=== PATIENT | female | born 1930 | race Caucasian/White ===

== ENCOUNTER 2019-07-24 18:51 | Observation (INO) | payer MEDICARE, OTHER ==
[~2019-07-24] VITALS: Ht 167.6 cm; Wt 54.0 kg
--- OUTSIDE RECORDS SUMMARY | ~2019-07-24 | XMS | Encounter Summary ---
Demographics + + + | Address | [address] | | | [place] [address] | + + + | Home Phone | | + + + | Preferred Language | Unknown | + + + | Marital Status | | + + + | Synagogue Affiliation | Unknown | + + + | Race | Unknown | + + + | Ethnic Group | Unknown | + + + Author + + + | Author | [facility] | | | and [place] | + + + | Organization | [facility] | | | and [place] | + + + | Address | Unknown | + + + | Phone | Unavailable | + + + Support + + + + + | Name | Relationship | Address | Phone | + + + + + | Sigrid Lennon | ECON | [address] | | | | | [place] [address] | | + + + + + | Valentín Saleh | ECON | [address] | | | | | [place] [address] | | + + + + + | Roberto Carlos Lennon | LEVI | Unknown | | + + + + + Care Team Providers + +------+ + | Care Ship Construction Teacher Name | Role | Phone | + +------+ + | No, Physician | PCP | Unavailable | + +------+ + Encounter Details +--------+ + + + + | Date | Type | Department | Care Team | Description | +--------+ + + + + | 09/03/ | Lab | [facility] | Francois Pascal, | Other intermediate | | 2017 | Requisition | [facility] CTR [facility] | [address] | (current) drug | | | | [address] [place] | [address] [place], | therapy | | | | [place], [place] | [place] [address] | | | | | [address] | [phone] | | | | | [phone] | | | +--------+ + + + + Social History + +-------+ +--------+------+ | Tobacco Use | Types | Packs/Day | Years | Date | | | | | Used | | + +-------+ +--------+------+ | Never Smoker | | | | | + +-------+ +--------+------+ + +---+---+---+ | Smokeless Tobacco: | | | | | Never Used | | | | + +---+---+---+ + + +---------+ + | Alcohol Use | Drinks/Week | oz/Week | Comments | + + +---------+ + | No | 0 Standard drinks | 0.0 | | | | or equivalent | | | + + +---------+ + + + + | Sex Assigned at | Date Recorded | | | | + + + | Not on file | | + + + + + + + | Job Start Date | Occupation | Industry | + + + + | Not on file | Not on file | Not on file | + + + + + + + + | Travel History | Travel Start | Travel End | + + + + + + | No recent travel history available. | + + documented as of this encounter Functional Status + + + + | Functional Status | Response | Date of Assessment | + + + + | Are you deaf or do you have serious | No | 07/13/2016 | | difficulty hearing? | | | + + + + | Are you blind or do you have serious | No | 07/13/2016 | | difficulty seeing, even when wearing | | | | glasses? | | | + + + + | Do you have serious difficulty walking or | Yes | 07/13/2016 | | climbing stairs? (5 years old or older) | | | + + + + | Do you have difficulty dressing or bathing? | Yes | 07/13/2016 | | (5 years old or older) | | | + + + + | Because of a physical, mental, or emotional | No | 07/13/2016 | | condition, do you have difficulty doing | | | | errands alone such as visiting a doctor's | | | | office or shopping? [15 years old or | | | | older)] | | | + + + + + + + + | Cognitive Status | Response | Date of Assessment | + + + + | Because of a physical, mental, or emotional | No | 07/13/2016 | | condition, do you have serious difficulty | | | | concentrating, remembering, or making | | | | decisions? (5 years old or older) | | | + + + + documented as of this encounter Plan of Treatment Not on filedocumented as of this encounter Procedures + +--------+ + + + | Procedure Name | Priori | Date/Time | Associated Diagnosis | Comments | | | ty | | | | + +--------+ + + + | COMPREHENSIVE | Routin | 09/03/2016 | Other intermediate | Results for this | | METABOLIC PANEL | e | 6:58 AM | (current) drug | procedure are in the | | | | PDT | therapy | results section. | + +--------+ + + + documented in this encounter Results COMPREHENSIVE METABOLIC PANEL (09/03/2016 6:58 AM PDT) + + + + + + | Component | Value | Ref Range | Performed | Pathologist | | | | | At | Signature | + + + + + + | Na | 136 | 136 - 149 | [facility] | | | | | mmol/L | [facility] | | | | | | [facility] | | | | | | [facility] - | | | | | | LABORATORY | | + + + + + + | K | 4.1 | 3.5 - 5.1 | [facility] | | | | | mmol/L | [facility] | | | | | | [facility] | | | | | | C[facility] - | | | | | | LABORATORY | | + + + + + + | Cl | 103 | 98 - 109 mmol/L | [facility] | | | | | | [facility] | | | | | | [facility] | | | | | | C[facility] - | | | | | | LABORATORY | | + + + + + + | CO2 | 27 | 24 - 31 mmol/L | [facility] | | | | | | [facility] | | | | | | [facility] | | | | | | C[facility] - | | | | | | LABORATORY | | + + + + + + | Anion Gap | 6 | 3 - 16 mmol/L | [facility] | | | | | | [facility] | | | | | | [facility] | | | | | | C[facility] - | | | | | | LABORATORY | | + + + + + + | Glucose | 155 (H) | 70 - 109 mg/dL | [facility] | | | | | | [facility] | | | | | | [facility] | | | | | | CENTER - | | | | | | LABORATORY | | + + + + + + | BUN | 16 | 7 - 18 mg/dL | [facility] | | | | | | [facility] | | | | | | [facility] | | | | | | C[facility] - | | | | | | LABORATORY | | + + + + + + | Creatinine | 0.84 | 0.60 - 1.30 | [facility] | | | | | mg/dL | [facility] | | | | | | [facility]ICAL | | | | | | CENTER - | | | | | | LABORATORY | | + + + + + + | eGFR if not | >60Comment: GLOMERULAR | >=60 | [facility] | | | | FILTRATION | mL/min/1.73m2 | [facility] | | | MALAGASY | RATE,ESTIMATED | | MEDICAL | | | | mL/min/1.76c4Bkyg than | | CENTER - | | | | 60 Chronic kidney | | LABORATORY | | | | disease,if found over a | | | | | | 3-month period.Less than | | | | | | 15 Kidney failureFor | | | | | | | | | | | | Americans,multiply the | | | | | | calculated GFR by 1.21. | | | | | | | | | | + + + + + + | Calcium | 8.8 | 8.3 - 10.5 | [facility] | | | | | mg/dL | [facility] | | | | | | MEDICAL | | | | | | CENTER - | | | | | | LABORATORY | | + + + + + + | Albumin | 3.1 (L) | 3.2 - 5.0 g/dL | [facility] | | | | | | [facility] | | | | | | MEDICAL | | | | | | CENTER - | | | | | | LABORATORY | | + + + + + + | Bilirubin | 0.5 | 0.1 - 1.5 mg/dL | [facility] | | | Total | | | [facility] | | | | | | [facility]ICAL | | | | | | CENTER - | | | | | | LABORATORY | | + + + + + + | Total | 5.8 (L) | 6.0 - 7.8 g/dL | [facility] | | | Protein | | | [facility] | | | | | | MEDICAL | | | | | | CENTER - | | | | | | LABORATORY | | + + + + + + | AST | 17 | 10 - 42 U/L | [facility] | | | | | | [facility] | | | | | | [facility]ICAL | | | | | | CENTER - | | | | | | LABORATORY | | + + + + + + | ALT | 13 | 6 - 45 U/L | [facility] | | | | | | [facility] | | | | | | MEDICAL | | | | | | CENTER - | | | | | | LABORATORY | | + + + + + + | Alkaline | 71 | 40 - 110 U/L | [facility] | | | Phosphatase | | | [facility] | | | | | | MEDICAL | | | | | | CENTER - | | | | | | LABORATORY | | + + + + + + | Globulin | 2.7 | 2.1 - 3.8 g/dL | [facility] | | | | | | [facility] | | | | | | [facility] | | | | | | CENTER - | | | | | | LABORATORY | | + + + + + + | Albumin/Kalani | 1.1 | 0.8 - 2.0 | [facility] | | | bulin Ratio | | | [facility] | | | | | | MEDICAL | | | | | | CENTER - | | | | | | LABORATORY | | + + + + + + | BUN/Creatin | 19.0 | | [facility] | | | ine Ratio | | | [facility] | | | | | | MEDICAL | | | | | | CENTER - | | | | | | LABORATORY | | + + + + + + + + | Specimen | + + | Blood | + + + + + + + | Performing | Address | City/State/Zipcode | Phone Number | | Organization | | | | + + + + + | [facility] | 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
--- OUTSIDE RECORDS SUMMARY | ~2019-07-24 | XMS | Encounter Summary ---
Demographics + + + | Address | [address] | | | [place] [address] | + + + | Home Phone | | + + + | Preferred Language | Unknown | + + + | Marital Status | | + + + | Mormonism Affiliation | Unknown | + + + | Race | Unknown | + + + | Ethnic Group | Unknown | + + + Author + + + | Author | [facility] | | | and [place] | + + + | Organization | [facility] | | | and [...] | | | | | [place] [address] | | + + + + + | Valentín Saleh | ECON | [address] | | | | | [place] [address] | | + + + + + | Roberto Carlos Lennon | LEVI | Unknown | | + + + + + Care Team Providers + +------+ + | Care Staff Physical Therapist Name | Role | Phone | + +------+ + | Francois Pascal MD | PCP | | + +------+ + Reason for Visit + + + | Reason | Comments | + + + | Medication Refill | | + + + Encounter Details +--------+--------+ + + + | Date | Type | Department | Care Team | Description | +--------+--------+ + + + | 11/13/ | Refill | [facility] | Francois Pascal, | Medication Refill | | 2012 | | MEDICINE [place] | [address] | | | | | [address] | [address] [place], | | | | | [place] | [place] [address] | | | | | [address] | [phone] | | | | | [phone] | | | +--------+--------+ + + + Social History + +-------+ [...] Not on filedocumented as of this encounter Visit Diagnoses + + | Diagnosis | + + | ARTHRITIS, CHRONIC - Primary Arthropathy, unspecified, site unspecified | + + documented in this encounter"
--- OUTSIDE RECORDS SUMMARY | ~2019-07-24 | XMS | Encounter Summary ---
Demographics + + + | Address | [address] | | | [place] [address] | + + + | Home Phone | | + + + | Preferred Language | Unknown | + + + | Marital Status | | + + + | Hinduism Affiliation | Unknown | + + + | Race | Unknown | + + + | Ethnic Group | Unknown | + + + Author + + + | Author | [facility] | | | and [place] | + + + | Organization | [facility] | | | and [...] | | | | | [place] [address] | | + + + + + | Valentín Saleh | ECON | [address] | | | | | [place] [address] | | + + + + + | Roberto Carlos Lennon | LEVI | Unknown | | + + + + + Care Team Providers + +------+ + | Care Client Services Analyst Name | Role | Phone | + +------+ + | No, Physician | PCP | Unavailable | + +------+ + Encounter Details +--------+ + + + + | Date | Type | Department | Care Team | Description | +--------+ + + + + | 07/31/ | Lab | [facility] | Francois Pascal, | Encounter for | | 2019 | Requisition | MED CTR [facility] | [address] | screening for other | | | | [address] [place] | [address], | viral diseases | | | | [place], [place] | [place] [address] | | | | | [address] | [phone] | | | | | [phone] | | | +--------+ + + + [...] | + +--------+ + + + | HIV AG/AB, 4TH GEN, | Routin | 07/30/2018 | Encounter for | Results for this | | REFLEX | e | 3:45 PM | screening for other | procedure are in the | | | | PDT | viral diseases | results section. | + +--------+ + + + | HEPATITIS PANEL | Routin | 07/30/2018 | Encounter for | Results for this | | | e | 3:45 PM | screening for other | procedure are in the | | | | PDT | viral diseases | results section. | + +--------+ + + + | HIV TYPE 1 AND 2 AB | Routin | 07/30/2018 | Encounter for | Results for this | | SCREEN, RAPID | e | 3:45 PM | screening for other | procedure are in the | | | | PDT | viral diseases | results section. | + +--------+ + + + documented in this encounter Results HIV AG/AB, 4th Gen Reflex (07/30/2018 3:45 PM PDT) + + + + + + | Component | Value | Ref Range | Performed | Pathologist | | | | | At | Signature | + + + + + + | HIV 1/2 Ab | Non Reactive | Non Reactive | [facility] | | | and P24 Ag | | | LAB [facility] | | | | | | - [facility] | | + + + + + + + + | Specimen | + + | Blood | + + + + + | Narrative | Performed At | + + + | Performed at: [address] [facility] [address], | REFERENCE LAB | | [place], [place] [id number] Supervisor Floor Assembly: Brian Lacy MD, Phone: | [facility] | | [phone] | | + + + + + + + + | Performing | Address | City/State/Zipcode | Phone Number | | Organization | | | | + + + + + | REFERENCE LAB | [address] | [place], [place] | [phone] | | [facility] | [place] | [address] | | + + + + + HIV Type 1 and 2 Ab Screen, Rapid (07/30/2018 3:45 PM PDT) + + + + + + | Component | Value | Ref Range | Performed | Pathologist | | | | | At | Signature | + + + + + + | HIV 1 and 2 | Non-Reactive | Non-Reactive | [facility] | | | Ab, Rapid | | | [facility] | | | | | | MEDICAL | | | | | | CENTER - | | | | | | LABORATORY | | + + + + + + | HIV-1 P24 | Non-Reactive | Non-Reactive | [facility] | | | Ag | | | [facility] | | [...] | + + + + + | [facility] | [address] | [place] | [phone] | | [facility] | | [address] | | | - LABORATORY | | | | + + + + + Hepatitis Panel (07/30/2018 3:45 PM PDT) + + + + + + | Component | Value | Ref Range | Performed | Pathologist | | | | | At | Signature | + + + + + + | HEP A TOTAL | Positive (A) | Negative | [facility] | | | AB | | | LAB [facility] | | | | | | - [place] | | + + + + + + | Hepatitis B | Negative | Negative | [facility]FER[facility] | | | Surface Ag | | | LAB [facility] | | | | | | - [place] | | + + + + + + | Hepatitis B | Negative | Negative | [facility] | | | Core Ab, | | | LAB [facility] | | | Total | | | - [place] | | + + + + + + | Hepatitis B | Non ReactiveComment: | | [facility]FER[facility] | | | Surface | Non | | LAB [facility] | | | Antibody | Reactive: Inconsistent | | - [place] | | | Qual | with immunity, | | | | | | | | | | | | less than 10 | | | | | | mIU/mL | | | | | | Reactive: | | | | | | Consistent with | | | | | | immunity, | | | | | | | | | | | | greater than 9.9 | | | | | | mIU/mL | | | | + + + + + + | Hepatitis C | <0.1Comment: | 0.0 - 0.9 s/co | [facility] | | | Ab | | ratio | LAB [facility] | | | | | | - [facility] | | | | Negative: < 0.8 | | | | | | | | | | | | | | | | | | Indeterminate: 0.8 - 0.9 | | | | | | | | | | | | | | | | | | Positive: > 0.9 | | | | | | The CDC recommends that | | | | | | a positive HCV antibody | | | | | | result be followed up | | | | | | with a HCV Nucleic Acid | | | | | | Amplification test | | | | | | ([id number]). | | | | + + + + + + + + | Specimen | + + | Blood | + + + + + | Narrative | Performed At | + + + | Performed at: [address] - [facility] [address], | REFERENCE LAB | | [place], [place] [id number] Supervisor Floor Assembly: Brian Lacy MD, Phone: | NATAL[facility] CRUZ | | [phone] | | + + + + + + + + | Performing | Address | City/State/Zipcode | Phone Number | | Organization | | | | + + + + + | REFERENCE LAB | [address] | [place], [place] | [phone] | | [facility] | [facility] | [address] | | + + + + + documented in this encounter Visit Diagnoses + + | Diagnosis | + + | Encounter for screening for other viral diseases | + + documented in this encounter"
--- OUTSIDE RECORDS SUMMARY | ~2019-07-24 | XMS | Encounter Summary ---
Demographics + + + | Address | [address] | | | [place] [address] | + + + | Home Phone | | + + + | Preferred Language | Unknown | + + + | Marital Status | | + + + | Gnosticist Affiliation | Unknown | + + + | Race | Unknown | + + + | Ethnic Group | Unknown | + + + Author + + + | Author | [facility] | | | and [place] | + + + | Organization | [facility] | | | and [place] | + + + | Address | Unknown | + + + | Phone | Unavailable | + + + Support + + + + + | Name | Relationship | Address | Phone | + + + + + | Sigrid Lennon | ECON | [address] | | | | | [place] [address] | | + + + + + | Valentín Saleh | ECON | [address] | | | | | [place] [address] | | + + + + + | Roberto Carlos Lennon | LEVI | Unknown | | + + + + + Care Team Providers + +------+ + | Care Manager Of Maintenance Name | Role | Phone | + +------+ + | Francois Pascal MD | PCP | | + +------+ + Reason for Visit + + + | Reason | Comments | + + + | Appointment | appointment on 12-06-16 needs rescheduled | + + + Encounter Details +--------+ + + + + | Date | Type | Department | Care Team | Description | +--------+ + + + + | 11/29/ | Telephone | [facility] | Leah, | Appointment | | 2016 | | CARDIOLOGY [address] | [place] [address] | (appointment on | | | | [place], | [place], | 12-06-16 needs | | | | [place] [address] | [place] [address] | rescheduled) | | | | [phone] | [phone] | | | | | | | | +--------+ + + + [...] filedocumented as of this encounter Visit Diagnoses Not on filedocumented in this encounter"
--- OUTSIDE RECORDS SUMMARY | ~2019-07-24 | XMS | Encounter Summary ---
Demographics + + + | Address | [address] | | | [place] [address] | + + + | Home Phone | | + + + | Preferred Language | Unknown | + + + | Marital Status | | + + + | Religion Affiliation | Unknown | + + + | Race | Unknown | + + + | Ethnic Group | Unknown | + + + Author + + + | Author | [facility] | | | and [place] | + + + | Organization | [facility] | | | and [place] | + + + | Address | Unknown | + + + | Phone | Unavailable | + + + Support + + + + + | Name | Relationship | Address | Phone | + + + + + | Sigrid Lennon | ECON | [address] | | | | | [place] [address] | | + + + + + | Valentín Saleh | ECON | [address] | | | | | [place] [address] | | + + + + + | Roberto Carlos Lennon | LEVI | Unknown | | + + + + + Care Team Providers + +------+ + | Care Direct Of Real Estate Name | Role | Phone | + +------+ + | Francois Pascal MD | PCP | | + +------+ + Encounter Details +--------+ + + + + | Date | Type | Department | Care Team | Description | +--------+ + + + + | 08/20/ | Orders Only | [facility] [place] [facility] | Francois Pascal, | Senile dementia, | | 2017 | | MEDICINE [address] | [address] | uncomplicated | | | | [address] | [address], | (Primary Dx) | | | | [place] [address] | [place] [address] | | | | | [phone] | [phone] | | | | | | | [...] + | Diagnosis | + + | Senile dementia, uncomplicated (HCC) - Primary Senile dementia, uncomplicated | + + documented in this encounter"
--- OUTSIDE RECORDS SUMMARY | ~2019-07-24 | XMS | Encounter Summary ---
Demographics + + + | Address | [address] | | | [place] [address] | + + + | Home Phone | | + + + | Preferred Language | Unknown | + + + | Marital Status | | + + + | Congregational Affiliation | Unknown | + + + | Race | Unknown | + + + | Ethnic Group | Unknown | + + + Author + + + | Author | [facility] | | | and [place] | + + + | Organization | [facility] | | | and [place] | + + + | Address | Unknown | + + + | Phone | Unavailable | + + + Support + + + + + | Name | Relationship | Address | Phone | + + + + + | Sigrid Lennon | ECON | [address] | | | | | [place] [address] | | + + + + + | Valentín Saleh | ECON | [address] | | | | | [place] [address] | | + + + + + | Roberto Carlos Lennon | LEVI | [place] | | + + + + + Care Team Providers + +------+ + | Care Nurse Outreach Case Manager Name | Role | Phone | + +------+ + PCP | Unavailable | + +------+ + Encounter Details +--------+ + + + + | Date | Type | Department | Care Team | Description | +--------+ + + + + | 03/13/ | Hospital | [facility] | Mauricio Rider | | | 2010 | Encounter | MED CTR [facility] OP | [address] [facility] | | | | | [address] | [place] | | | | | [place] | [address] | | | | | [address] | | | | | | [phone] | | | +--------+ + + + + Social History + +-------+ +--------+------+ | Tobacco Use | Types | Packs/Day | Years | Date | | | | | Used | | + +-------+ +--------+------+ | Never Assessed | | | | | + +-------+ +--------+------+ + + + | Sex Assigned at [...] + + documented as of this encounter Medications at Time of Discharge + + + +---------+ + + | Medication | Sig | Dispensed | Refills | Start | End Date | | | | | | Date | | + + + +---------+ + + | sitaGLIPtin | Take 100 mg by mouth | | 0 | 10/23/19 | | | (JANUVIA) 100 mg | Daily. | | | 10 | 3 | | tablet | | | | | | + + + +---------+ + + documented as of this encounter Plan of Treatment Not on filedocumented as of this encounter Visit Diagnoses Not on filedocumented in this encounter"
--- OUTSIDE RECORDS SUMMARY | ~2019-07-24 | XMS | Encounter Summary ---
Demographics + + + | Address | [address] | | | [place] [address] | + + + | Home Phone | | + + + | Preferred Language | Unknown | + + + | Marital Status | | + + + | Confucianism Affiliation | Unknown | + + + | Race | Unknown | + + + | Ethnic Group | Unknown | + + + Author + + + | Author | [facility] | | | and [place] | + + + | Organization | [facility] [...] | | | | | [place] [address] | | + + + + + | Valentín Saleh | ECON | [address] | | | | | [place] [address] | | + + + + + | Roberto Carlos Lennon | LEIV | Unknown | | + + + + + Care Team Providers + +------+ + | Care Modern Greek Studies Professor Name | Role | Phone | + +------+ + | Francois Pascal MD | PCP | | + +------+ + Encounter Details +--------+ + + + + | Date | Type | Department | Care Team | Description | +--------+ + + + + | 07/16/ | Hospital | [facility] | Francois Pascal, | Essential | | 2016 | Encounter | [facility] | [address] | hypertension; | | | | [address] [place] | [address] [place], | Diabetes mellitus | | | | [place], [place] | [place] [address] | due to underlying | | | | [address] | [phone] | condition with | | | | [phone] | | hyperglycemia (HCC); | | | | | | CHRONIC KIDNEY | | | | | | DISEASE STAGE III | | | | | | (MODERATE) | +--------+ + + + + Social [...] TABLET BY | 180 | 2 | 02/16/20 | | | (ZYLOPRIM) 100 mg | MOUTH TWICE A DAY | tablet | | 14 | 6 | | tablet | | | | | | + + + +---------+ + + | amLODIPine | TAKE ONE TABLET BY | 90 | 3 | 04/09/19 | | | (NORVASC) 5 mg | MOUTH EVERY DAY | tablet | | 16 | 7 | | tablet | | | | | | + + + +---------+ + + | aspirin (ASPIRIN | Take2 tablets by | | 0 | 08/11/19 | | | EC) 81 MG EC tablet | mouth Tuesday thru | | | 12 | 6 | | | Tuesday and 325 mg | | | | | | | on Tuesday | | | | | + + + +---------+ + + | aspirin 325 mg | Take 1 by mouth on | | 0 | 08/11/19 | | | tablet | ays | | | 12 | 6 | + + + +---------+ + + | Calcium | Take 2 tablets by | | 0 | 11/18/19 | | | Carbonate-Vitamin D | mouth daily | | | 12 | 6 | | 600-200 MG-UNIT TABS | | | | | | + + + +---------+ + + | Cinnamon 500 MG | Take 1 capsule by | | 0 | | | | CAPS | mouth 2 times daily. | | | | 6 | + + + +---------+ + + | colchicine 0.6 mg | 1-2 tablets by mouth | | 0 | 10/01/19 | | | tablet | as needed | | | 11 | 8 | + + + +---------+ + + | fluocinonide | as needed. | | 0 | 04/03/19 | | | (LIDEX) 0.05% cream | | | | 13 | 6 | + + + +---------+ + + | folic acid 1 mg | TAKE ONE TABLET BY | 90 | 1 | 04/15/19 | | | tablet | MOUTH EVERY DAY | tablet | | 16 | 6 | + + + +---------+ + + | furosemide (LASIX) | TAKE ONE TABLET BY | 90 | 3 | 12/28/19 | | | 40 mg tablet | MOUTH EVERY DAY | tablet | | 15 | 6 | + + + +---------+ + + | insulin aspart | 33 units SQ TID | 20 mL | 3 | 04/14/19 | | | (NOVOLOG) 100 | prior to meals | | | 16 | 6 | | units/mL | | | | | | | injectionIndications | | | | | | | : Diabetes mellitus | | | | | | | due to underlying | | | | | | | condition with | | | | | | | hyperglycemia ([facility]) | | | | | | + + + +---------+ + + | JANUVIA 100 MG | TAKE ONE TABLET BY | 90 | 1 | 02/25/20 | | | tablet | MOUTH EVERY DAY | tablet | | 15 | 6 | + + + +---------+ + + | LANTUS 100 UNIT/ML | INJECT 120 UNITS AT | 50 mL | 6 | 11/26/19 | | | injection | BEDTIME | | | 15 | 6 | | (vial)Indications: | | | | | | | DM (diabetes | | | | | | | mellitus) ([facility]) | | | | | | + + + +---------+ + + | lisinopril | 1 tablet Daily. | 30 | 3 | 06/12/19 | | | (PRINIVIL, ZESTRIL) | | tablet | | 16 | 6 | | 20 mg tablet | | | | | | + + + +---------+ + + | methotrexate 2.5 | TAKE 5 TABLETS BY | 20 | 1 | 04/29/19 | | | mg tablet | MOUTH ONCE WEEKLY | tablet | | 16 | 6 | + + + +---------+ + + | metoprolol | TAKE ONE TABLET BY | 90 | 3 | 10/01/19 | | | succinate | MOUTH EVERY DAY | tablet | | 15 | 6 | | (TOPROL-XL) 200 mg | | [...] + + + +---------+ + + | niacin (NIASPAN) | TAKE ONE TABLET BY | 30 | 6 | 11/26/19 | | | 500 mg CR tablet | MOUTH EVERY DAY | tablet | | 15 | 6 | + + + +---------+ + + | simvastatin | TAKE ONE-HALF TABLET | 45 | 3 | 10/08/19 | | | (ZOCOR) 40 mg tablet | BY MOUTH EVERY DAY | tablet | | 15 | 6 | + + + +---------+ + + | traMADol (ULTRAM) | Take 1 tablet by | 30 | 0 | 04/14/19 | | | 50 mg | mouth every 8 hours | tablet | | 16 | 6 | | tabletIndications: | as needed for Pain. | | | | | | Primary | | | | | | | osteoarthritis of | | | | | | | left ankle | | | | | | + [...] + | CBC WITH | Routin | 07/17/2015 | Essential | Results for this | | DIFFERENTIAL | e | 10:30 AM | hypertension | procedure are in the | | | | PDT | | results section. | + +--------+ + + + | PHOSPHORUS | Routin | 07/17/2015 | CHRONIC KIDNEY | Results for this | | | e | 10:30 AM | DISEASE STAGE III | procedure are in the | | | | PDT | (MODERATE) | results section. | + +--------+ + + + | HEMOGLOBIN A1C | Routin | 07/17/2015 | Diabetes mellitus | Results for this | | | e | 10:30 AM | due to underlying | procedure are in the | | | | PDT | condition with | results section. | | | | | hyperglycemia (HCC) | | + +--------+ + + + | COMPREHENSIVE | Routin | 07/17/2015 | Essential | Results for this | | METABOLIC PANEL | e | 10:30 AM | hypertension | procedure are in the | | | | PDT | | results section. | + +--------+ + + + documented in this encounter Results Phosphorus (07/17/2015 10:30 AM PDT) + +-------+ + + + | Component | Value | Ref Range | Performed | Pathologist | | | | | At | Signature | + +-------+ + + + | Phosphorus | 3.5 | 2.5 - 4.6 mg/dL | [facility] | | | | [...] ST. | [address] | [place] | [phone] | | [facility] | | [address] | | | - LABORATORY | | | | + + + + + Hemoglobin A1C (07/17/2015 10:30 AM PDT) + [...] + | [facility] | [address] | [place], [place] | [phone] | | [facility] | | [address] | | | - LABORATORY | | [...] | | | | | mmol/L | [facility] | | | | [...] not | 42 (L)Comment: | >=60 | [facility] | | | | GLOMERULAR FILTRATION | mL/min/1.73m2 | [facility] | | | EG[place]IAN | RATE,ESTIMATED | | MEDICAL | | | | mL/min/1.16m6Oufu than | | CENTER - | | [...] | ine Ratio | | | [facility] | | | | | [...] [address] | [place] | [phone] | | [facility] | | [address] | | | - LABORATORY | | | | + + + + + CBC with Differential (07/17/2015 10:30 AM PDT) + + + + + + | Component | Value | Ref Range | Performed | Pathologist | | | | | At | Signature | + + + + + + | WBC | 12.7 (H) | 4.0 - 11.0 K/uL | [facility] | | | | | | [facility] | | | | | | MEDICAL | | | | | | CENTER - | | | | | | LABORATORY | | + + + + + + | RBC | 3.98 | 3.70 - 5.20 | [facility] | | | | | M/uL | [facility] | [...] | | Eosinophils | | K/uL | [facility] | | | | | | MEDICAL | | | | | | CENTER - | | | | | | LABORATORY | | + + + + + + | Absolute | 0.00 | 0.00 - 0.10 | [facility] | | | Basophils | | K/uL | [facility] | | | | | | [...] + + | [facility] 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
--- OUTSIDE RECORDS SUMMARY | ~2019-07-24 | XMS | Encounter Summary ---
Demographics + + + | Address | [address] | | | [place] [address] | + + + | Home Phone | | + + + | Preferred Language | Unknown | + + + | Marital Status | | + + + | Moravian Affiliation | Unknown | + + + | Race | Unknown | + + + | Ethnic Group | Unknown | + + + Author + + + | Author | [facility] | | | and [place] | + + + | Organization | [facility] | [...] | | | | | [place] [address] | | + + + + + | Valentín Saleh | ECON | [address] | | | | | [place] [address] | | + + + + + | Roberto Carlos Lennon | LEVI | Unknown | | + + + + + Care Team Providers + +------+ + | Care Fee Clerk Name | Role | Phone | + +------+ + | Francois Pascal MD | PCP | | + +------+ + Reason for Referral Evaluate & Treat (Urgent) +--------+ + + + + + | Status | Reason | Specialty | Diagnoses / | Referred By | Referred To | | | | | Procedures | Contact | Contact | +--------+ + + + + + | Closed | Specialty | Neurology | Diagnoses | [place], | [place], | | | Services | | Rapidly | Francois Tello MD | Roberto Carlos Mckeon | | | Required | | progressive | [address] | | | | dementia | [address] | | | | | ([facility]) | [place] | [address] | | | | | | [place] | [place] | | | | | | [address] | [address] Phone: | | | | | | Phone: | [phone] | | | | | | [phone] | Fax: | | | | | | Fax: | [phone] | | | | | | [phone] | | +--------+ + + + + + Encounter Details +--------+---------+ + + + | Date | Type | Department | Care Team | Description | +--------+---------+ + + + | 08/19/ | Office | [facility] | Francois Pascal, | Rapidly progressive | | 2017 | Visit | MEDICINE [facility] | [address] | dementia (Primary | | | | Street [place] | [address] [place], | Dx); Confusion state | | | | [place] [address] | [place] [address] | | | | | [phone] | [phone] | | | | | | | [...] + + + | Blood Pressure | 100/60 | 08/19/2016 11:02 AM | | | | | PDT | | + + + + + | Pulse | 53 | 08/19/2016 11:02 AM | | | | | PDT | | + + + + + | Temperature | 36.6 C (97.9 F) | 08/19/2016 11:02 AM | | | | | PDT | | + + + + + | Respiratory Rate | 16 | 08/19/2016 11:02 AM | | | | | PDT | | + + + + + | Oxygen Saturation | 97% | 08/19/2016 11:02 AM | | | | | PDT | | + + + + + | Inhaled Oxygen | - | - | | | Concentration | | | | + + + + + | Weight | 72.1 kg (159 lb) | 08/19/2016 11:02 AM | | | | | PDT | | + + + + + | Height | 167.6 cm (5' 6") | 08/19/2016 11:02 AM | | | | | PDT | | + + + + + | Body Mass Index | 25.66 | 08/19/2016 11:02 AM | | | | | PDT [...] + documented as of this encounter Progress Francois Borden MD - 08/19/2016 11:15 AM PDTFormatting of this note might be different f rom the original. Subjective: Patient ID: Alyson Lennon is a 85 y.o. female. HPI Confusion for the last week or two. There is no burning with urination. Pt denies any c onfusion. Her states she has been very confused. She does not know who the Presid ent is. She states she heard her is going to divorce her and get remarried to a gi rlfriend. "I'm confused" Review of Systems Objective: Physical Exam Mild distress, Anger, obvious confusion. Heent, No carotid bruit Chest CTAB Heart RR&R /c M Abd S,NT,ND,BS+ Ext, no CCor E Assessment: Mini Mental State exam score was 18 out of 30 1. Rapidly progressive dementia 2. Confusion state Plan: UA today, Mary memory and disposition have definitely declined. She may have some parano ia but I can't be sure. Will seek neurologist opinion. Otherwise continue current medical regimen. 25min was spent with the patient of which greater than 50% was spending in counseling yohan de la rosa. documented in this encounter Plan of Treatment + + +--------+ + + | Name | Type | Priori | Associated Diagnoses | Order Schedule | | | | ty | | | + + +--------+ + + | * [facility] [place] | Outpatient | Routin | Rapidly | Ordered: 08/19/2016 | | Neurology - AMB | Referral | e | progressive dementia | | | Referral | | | | | + + +--------+ + + documented as of this encounter Visit Diagnoses + + | Diagnosis | + + | Rapidly progressive dementia (HCC) - Primary Other persistent mental disorders due to | | conditions classified elsewhere | + + | Confusion state Unspecified psychosis | + + documented in this encounter
--- OUTSIDE RECORDS SUMMARY | ~2019-07-24 | XMS | Encounter Summary ---
Demographics + + + | Address | [address] | | | [place] [address] | + + + | Home Phone | | + + + | Preferred Language | Unknown | + + + | Marital Status | | + + + | Scientology Affiliation | Unknown | + + + | Race | Unknown | + + + | Ethnic Group | Unknown | + + + Author + + + | Author | [facility] | | | and [place] | + + + | Organization | [facility] | | | and [place] | + + + | Address | Unknown | + + + | Phone | Unavailable | + + + Support + + + + + | Name | Relationship | Address | Phone | + + + + + | Sigrid Lennon | ECON | [address] | | | | | [place] [address] | | + + + + + | Valentín aSleh | ECON | [address] | | | | | [place] [address] | | + + + + + | Roberto Carlos Lennon | LEVI | Unknown | | + + + + + Care Team Providers + +------+ + | Care Avionics Safety Inspector Name | Role | Phone | + [...] Description | +--------+--------+ + + + | 05/30/ | Refill | [facility] [place] [facility] | Francois Pascal, | Medication Refill | | 2014 | | MEDICINE [facility] | [address] | | | | | [facility] | [address], | | | | | [place] [address] | [place] [address] | | | | | [phone] | [phone] | | | | | | | [...]
--- OUTSIDE RECORDS SUMMARY | ~2019-07-24 | XMS | Encounter Summary ---
Demographics + + + | Address | [address] | | | [place] [address] | + + + | Home Phone | | + + + | Preferred Language | Unknown | + + + | Marital Status | | + + + | Oriental Orthodox Affiliation | Unknown | + + + | Race | Unknown | + + + | Ethnic Group | Unknown | + + + Author + + + | Author | [facility] | | | and [place] | + + + | Organization | [facility] | | | and [...] | | | | | [place] [address] | | + + + + + | Valentín Saleh | ECON | [address] | | | | | [place] [address] | | + + + + + | Roberto Carlos Lennon | LEVI | Unknown | | + + + + + Care Team Providers + +------+ + | Care Senior Director Finance Name | Role | Phone | + [...] Description | +--------+--------+ + + + | 02/01/ | Refill | [facility] [place] [facility] | Francois Pascal, | Medication Refill | | 2015 | | MEDICINE [facility] | [address] | | | | | [facility] | [address], | | | | | [place] [address] | [place] [address] | | | | | [phone] | [phone] | | | | | | | [...]
--- OUTSIDE RECORDS SUMMARY | ~2019-07-24 | XMS | Encounter Summary ---
Demographics + + + | Address | [address] | | | [place] [address] | + + + | Home Phone | | + + + | Preferred Language | Unknown | + + + | Marital Status | | + + + | Uatsdin Affiliation | Unknown | + + + | Race | Unknown | + + + | Ethnic Group | Unknown | + + + Author + + + | Author | [facility] | | | and [place] | + + + | Organization | [facility] | | | and [place] | + + + | Address | Unknown | + + + | Phone | Unavailable | + + + Support + + + + + | Name | Relationship | Address | Phone | + + + + + | Sigrid Lennon | ECON | [address] | | | | | [place] [address] | | + + + + + | Valentín Saleh | ECON | [address] | | | | | [place] [address] | | + + + + + | Roberto Carlos Lennon | LEVI | [place] | | + + + + + Care Team Providers + +------+ + | Care Office Machine Service Supervisor Name | Role | Phone | + +------+ + PCP | Unavailable | + +------+ + Encounter Details +--------+ + + + + | Date | Type | Department | Care Team | Description | +--------+ + + + + | 08/01/ | Hospital | [facility] | | | | 2007 | Encounter | MED CTR [facility] | | | | | | [address] | | | | | | [place] | | | | | | [address] | | | | | | [phone] | | | +--------+ + + + [...]
--- OUTSIDE RECORDS SUMMARY | ~2019-07-24 | XMS | Encounter Summary ---
Demographics + + + | Address | [address] | | | [place] [address] | + + + | Home Phone | | + + + | Preferred Language | Unknown | + + + | Marital Status | | + + + | Worship Affiliation | Unknown | + + + | Race | Unknown | + + + | Ethnic Group | Unknown | + + + Author + + + | Author | [facility] | | | and [place] | + + + | Organization | [facility] | | | and [place] | + + + | Address | Unknown | + + + | Phone | Unavailable | + + + Support + + + + + | Name | Relationship | Address | Phone | + + + + + | Sigrid Lennon | ECON | [address] | | | | | [place] [address] | | + + + + + | Valentín Saleh | ECON | [address] | | | | | [place] [address] | | + + + + + | Roberto Carlos Lennon | LEVI | Unknown | | + + + + + Care Team Providers + +------+ + | Care Information Management Specialist Name | Role | Phone | + +------+ + | Francois Pascal MD | PCP | | + +------+ + Reason for Visit + + + | Reason | Comments | + + + | Hypertension | | + + + | Hyperlipidemia | | + + + | Ankle Pain | | + + + Encounter Details +--------+---------+ + + + | Date | Type | Department | Care Team | Description | +--------+---------+ + + + | 11/16/ | Office | [facility] | Francois Pascal, | Type 2 diabetes | | 2016 | Visit | MEDICINE [facility] | [address] | mellitus with stage | | | | Street [place] | [address] [place] [address], | 3 chronic kidney | | | | [place] [address] | [place] [address] | disease (HCC) | | | | [phone] | [phone] | (Primary Dx); | | | | | | Primary [...] + + + | Blood Pressure | 98/68 | 11/17/2015 1:22 PM | | | | | PDT | | + + + + + | Pulse | 76 | 11/17/2015 1:22 PM | | | | | PDT | | + + + + + | Temperature | 36.2 C (97.2 F) | 11/17/2015 1:22 PM | | | | | PDT | | + + + + + | Respiratory Rate | 16 | 11/17/2015 1:22 PM | | | | | PDT | | + + + + + | Oxygen Saturation | 98% | 11/17/2015 1:22 PM | | | | | PDT | | + + + + + | Inhaled Oxygen | - | - | | | Concentration | | | | + + + + + | Weight | 73 kg (161 lb) | 11/17/2015 1:22 PM | | | | | PDT | | + + + + + | Height | 162.6 cm (5' 4") | 11/17/2015 1:22 PM | | | | | PDT | | + + + + + | Body Mass Index | 27.64 | 11/17/2015 1:22 PM | | | | | PDT | | + + + + + documented in this encounter Progress Notes Francois Pascal MD - 11/17/2015 1:56 PM PDTFormatting of this note might be different f rom the original. Subjective: Patient ID: Alyson Lennno is a 84 y.o. female. HPI Chronic L ankle OA, Followed by Dr Valero with recent injection, There was miminal improvement , She would like to consider a joint replacement. She is now seeing Dr Ochoa, [facility]. DM2, with neuropathy, she was off her diet a little. She is back on this,. She has almo st eliminated potatoes, bread, rice, pasta. She does not eat much desserts. Lantus 120 QHS , novolog 35, lantus. She does not want to see the hospice educator. 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 Social History: Born in [facility] for [facility] years. and Remarried [...] no joint swelling and No ar thralgias. Some joint pain Skin: Neg for color change,no [...] motion Skin, no gross lesions Assessment: 1. 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 Primary osteoarthritis of left ankle Plan: A1C was reviewed with the patient, This is improved. She will watch her diet closer. R TC 3 months with labs prior. Otherwise continue current medical regimen. documented in this encounter Plan of Treatment Not on filedocumented as of this encounter Results Hemoglobin A1C (02/17/2016 9:00 AM [facility]) + +---------+ + + + | Component | Value | Ref Range | Performed | Pathologist | | | | | At | Signature | + +---------+ + + + | Hemoglobin | 7.6 (H) | 4.3 - 6.0 % | [facility] | | | A1c | | | [facility] | | | | | | MEDICAL | | | | | | CENTER - | | | | | | LABORATORY | | + +---------+ + + + | Estimated | 171 | mg/dL | [facility] | | | [...] ST. | 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
--- OUTSIDE RECORDS SUMMARY | ~2019-07-24 | XMS | Encounter Summary ---
Demographics + + + | Address | [address] | | | [place] [address] | + + + | Home Phone | | + + + | Preferred Language | Unknown | + + + | Marital Status | | + + + | Lutheran Affiliation | Unknown | + + + | Race | Unknown | + + + | Ethnic Group | Unknown | + + + Author + + + | Author | [facility] | | | and [place] | + + + | Organization | [facility] | | | and [...] | | | | | [place] [address] | | + + + + + | Valentín Saleh | ECON | [address] | | | | | [place] [address] | | + + + + + | Roberto Carlos Lennon | LEVI | Unknown | | + + + + + Care Team Providers + +------+ + | Care Logging Shovel Operator Name | Role | Phone | + +------+ + | Francois Pascal MD | PCP | | + +------+ + Encounter Details +--------+ + + + + | Date | Type | Department | Care Team | Description | +--------+ + + + + | 03/05/ | Orders Only | [facility] | [place], | CHRONIC KIDNEY | | 2016 | | NEPHROLOGY [address] | [address] | DISEASE STAGE III | | | | [address] | [address] [place] | (MODERATE) (Primary | | | | [place], [place] | [address] [place], [place] | Dx) | | | | [address] | [address] | | | | | [phone] | | | +--------+ + + + [...] documented as of this encounter Progress Notes Zaynab Humphries RN - 03/05/2016 9:20 AM PST[facility] 04/05/16 documented in this encounter Plan of Treatment Not on filedocumented as of this encounter Results Protein/Creatinine Ratio, Urine (04/01/2016 12:50 PM PST) + + + + + + | Component | Value | Ref Range | Performed | Pathologist | | | | | At | Signature | + + + + + + | Protein, | 48 (H) | <6 mg/dL | [facility] | | | Urine | | | [facility] | | | | | | [facility] | | | | | [facility] - | | | | | | LABORATORY | | + + + + + + | Creatinine, | 75 | mg/dL | [facility] | | | Urine, | | | [facility] | | | [facility] | | | MEDICAL | | | | | | CENTER - | | | | | | LABORATORY | | + + + + + + | PRO/CREA | 0.64 (H) | <0.20 mg/mg | [facility] | | | RATIO,URINE | | | [facility] | | | | | | [facility] | | | | | | C[facility] - | | | | | | LABORATORY | | + + + + + + + + | Specimen | + + | Urine | + + + + + + + | Performing | Address | City/State/Zipcode | Phone Number | | Organization | | | | + + + + + | [facility] | [address] | [place] | [phone] | | [facility] | | [address] | | | - LABORATORY | | | | + + + + + Parathyroid Hormone, Intact (04/01/2016 10:00 AM PST) + +-------+ + + + | Component | Value | Ref Range | Performed | Pathologist | | | | | At | Signature | + +-------+ + + + | PTH Intact | 27 | 12 - 88 pg/mL | [facility] | | | | | [...] [address] | [place] | [phone] | | [facility] | | [address] | | | - LABORATORY | | | | + + + + + Renal Function Panel (04/01/2016 10:00 AM PST) + +--------+ + + + | Component | Value | Ref Range | Performed | Pathologist | | | | | At | Signature | + +--------+ + + + | Na | 143 | 136 - 149 | [facility] | | | | | mmol/L | [facility] | | | | | | [facility] | | | | | | C[facility] - | | | | | | LABORATORY | | + +--------+ + + + | K | 4.1 | 3.5 - 5.1 | [facility] | | | | | mmol/L | [facility] | | | | | | [facility] | | | | | | [facility] - | | | | | | LABORATORY | | + +--------+ + + + | Cl | 105 | 98 - 109 mmol/L | [facility] | | | | | | [facility] | | | | | | [facility] | | | | | | C[facility] - | | | | | | LABORATORY | | + +--------+ + + + | CO2 | 30 | 24 - 31 mmol/L | [facility] | | | | | | [facility] | | | | | | [facility] | | | | | | [facility] - | | | | | | LABORATORY | | + +--------+ + + + | Anion Gap | 8 | 3 - 16 mmol/L | [facility] | | | | | | [facility] | | | | | | [facility] | | | | | | [facility] - | | | | | | LABORATORY | | + +--------+ + + + | Glucose | 104 | 70 - 109 mg/dL | [facility] | | | | | | [facility] | | [facility] | | | [facility] | | | | | | [facility] - | | | | | | LABORATORY | | + +--------+ + + + | BUN | 16 | 7 - 18 mg/dL | [facility] | | | | | | [facility] | | | | | | [facility] | | | | | | C[facility] - | | | | | | LABORATORY | | + +--------+ + + + | Creatinine | 1.12 | 0.60 - 1.30 | [facility] | | | | | mg/dL | [facility] | | | | | | [facility]ICAL | | | | | | CENTER - | | | | | | LABORATORY | | + +--------+ + + + | eGFR if not | 46 (L) | >=60 | [facility] | | | | | mL/min/1.73m2 | [facility] | | | [facility] | | | [facility] | | | | | | CENTER - | | | | | | LABORATORY | | + +--------+ + + + | Calcium | 9.5 | 8.3 - 10.5 | [facility] | | | | | mg/dL | [facility] | | | | | | MEDICAL | | | | | | CENTER - | | | | | | LABORATORY | | + +--------+ + + + | Albumin | 3.4 | 3.2 - 5.0 g/dL | [facility] | | | | | | [facility] | | | | | | MEDICAL | | | | | | CENTER - | | | | | | LABORATORY | | + +--------+ + + + | Phosphorus | 3.8 | 2.5 - 4.6 mg/dL | [facility] | | | | | | [facility] | | | | | | [facility] | | | | | | CENTER - | | | | | | LABORATORY | | + +--------+ + + + | BUN/Creatin | 14.3 | | [facility] | | | ine Ratio | | | [facility] | | | | | | [facility] | | | | | | CENTER - | | | | | | LABORATORY | | + +--------+ + + + + + | Specimen | + + | Blood | + + + + + + + | Performing | Address | City/State/Zipcode | Phone Number | | Organization | | | | + + + + + | [facility] | [address] | [place] | [phone] | | [facility] | | [address] | | | - LABORATORY | | | | + + + + + documented in this encounter Visit Diagnoses + + | Diagnosis | + + | CHRONIC KIDNEY DISEASE STAGE III (MODERATE) - Primary Chronic kidney disease, Stage | | III (moderate) | + + documented in this encounter"
--- OUTSIDE RECORDS SUMMARY | ~2019-07-24 | XMS | Encounter Summary ---
Demographics + + + | Address | [address] | | | [place] [address] | + + + | Home Phone | | + + + | Preferred Language | Unknown | + + + | Marital Status | | + + + | Buddhist Affiliation | Unknown | + + + | Race | Unknown | + + + | Ethnic Group | Unknown | + + + Author + + + | Author | [facility] | | | and [place] | + + + | Organization | [facility] | | | and [place] | + + + | Address | Unknown | + + + | Phone | Unavailable | + + + Support + + + + + | Name | Relationship | Address | Phone | + + + + + | Sigrid Lennon | ECON | [address] | | | | | [place] [address] | | + + + + + | Valentín Saleh | ECON | [address] | | | | | [place] [address] | | + + + + + | Roberto Carlos Lennon | LEVI | Unknown | | + + + + + Care Team Providers + +------+ + | Care Booster Pump Operator Name | Role | Phone | + +------+ + | Francois Pascal MD | PCP | | + +------+ + Encounter Details +--------+ + + + + | Date | Type | Department | Care Team | Description | +--------+ + + + + | 06/17/ | Orders Only | [facility] | [place], | CHRONIC KIDNEY | | 2016 | | NEPHROLOGY [address] | [address] | DISEASE STAGE III | | | | [address] | [address] [place] | (MODERATE) (Primary | | | | [place], [place] | [address] [place], [place] | Dx) | | | | [address] | [address] | | | | | [phone] | | | +--------+ + + + [...] encounter Progress Notes Zaynab Humphries RN - 06/18/2015 7:15 AM [facility] 07/21/15 documented in this encounter Plan of Treatment Not on filedocumented as of this encounter Visit Diagnoses + + | Diagnosis | + + | CHRONIC KIDNEY DISEASE STAGE III (MODERATE) - Primary Chronic kidney disease, Stage | | III (moderate) | + + documented in this encounter"
--- OUTSIDE RECORDS SUMMARY | ~2019-07-24 | XMS | Encounter Summary ---
Demographics + + + | Address | [address] | | | [place] [address] | + + + | Home Phone | | + + + | Preferred Language | Unknown | + + + | Marital Status | | + + + | Protestant Affiliation | Unknown | + + + | Race | Unknown | + + + | Ethnic Group | Unknown | + + + Author + + + | Author | [facility] | | | and [place] | + + + | Organization | [facility] | | | and [place] | + + + | Address | Unknown | + + + | Phone | Unavailable | + + + Support + + + + + | Name | Relationship | Address | Phone | + + + + + | Sigrid Lennon | ECON | [address] | | | | | [place] [address] | | + + + + + | Valentín Saleh | ECON | [address] | | | | | [place] [address] | | + + + + + | Roberto Carlos Lennon | LEVI | Unknown | | + + + + + Care Team Providers + +------+ + | Care Tire Assembler Name | Role | Phone | + +------+ + | Francois Pascal MD | PCP | | + +------+ + Reason for Visit + + + | Reason | Comments | + + + | Followup Cellulitis | Left foot | + + + Encounter Details +--------+---------+ + + + | Date | Type | Department | Care Team | Description | +--------+---------+ + + + | 11/23/ | Office | [facility] | Francois Pascal, | Cellulitis, | | 2018 | Visit | [facility] | [address] | unspecified | | | | [address] | [address], | cellulitis site; | | | | [place], [place] | [place] [address] | Cellulitis and | | | | [address] | [phone] | abscess of foot | | | | [phone] | | | +--------+---------+ + + + [...] + + + | Blood Pressure | 120/80 | 11/23/2017 11:37 AM | | | | | PDT | | + + + + + | Pulse | 72 | 11/23/2017 11:37 AM | | | | | PDT | | + + + + + | Temperature | 36.4 C (97.6 F) | 11/23/2017 11:37 AM | | | | | PDT | | + + + + + | Respiratory Rate | - | - | | + + + + + | Oxygen Saturation | 96% | 11/23/2017 11:37 AM | | | | | PDT | | + + + + + | Inhaled Oxygen | - | - | | | Concentration | | | | + + + + + | Weight | 65.9 kg (145 lb 3.2 | 11/23/2017 11:37 AM | | | | oz) | PDT | | + + + + + | Height | - | - | | + + + + + | Body Mass Index | 23.44 | 08/02/2017 12:37 PM | | | | | PDT [...] documented as of this encounter Progress Notes Francois Pascal MD - 11/23/2017 11:00 AM PDTFormatting of this note might be different f rom the original. Subjective: Patient ID: Alyson Lennon is a 86 y.o. female. HPI Cellulitis left leg. Nurse and see improvement but not complete resolution. Less swelling. No pain or fever. Review of Systems Objective: BP 120/80 | Pulse 72 | Temp 36.4 C (97.6 F) (Temporal) | Wt 65.9 kg (145 lb 3.2 oz) | SpO2 96% | BMI 23.44 kg/m Physical Exam Left leg with mild erythema but much less than prior,. There is no weeping, tthere is n o warmth. There is mild edema Assessment: 1. Cellulitis, unspecified cellulitis site Plan: Will extend the keflex for a week. This is much improved, Recheck in two weeks,. Otherw ise continue current medical regimen. documented in this encounter Plan of Treatment Not on filedocumented as of this encounter Visit Diagnoses + + | Diagnosis | + + | Cellulitis, unspecified cellulitis site | + + | Cellulitis and abscess of foot Cellulitis and abscess of foot, except toes | + + documented in this encounter"
--- OUTSIDE RECORDS SUMMARY | ~2019-07-24 | XMS | Encounter Summary ---
Demographics + + + | Address | [address] | | | [place] [address] | + + + | Home Phone | | + + + | Preferred Language | Unknown | + + + | Marital Status | | + + + | Judaism Affiliation | Unknown | + + + | Race | Unknown | + + + | Ethnic Group | Unknown | + + + Author + + + | Author | [facility] | | | and [place] | + + + | Organization | [facility] | | | and [place] | + + + | Address | Unknown | + + + | Phone | Unavailable | + + + Support + + + + + | Name | Relationship | Address | Phone | + + + + + | Sigrid Lennon | ECON | [address] | | | | | [place] [address] | | + + + + + | Valentín Saleh | ECON | [address] | | | | | [place] [address] | | + + + + + | Roberto Carlos Lennon | LEVI | [place] | | + + + + + Care Team Providers + +------+ + | Care Cabinet Professional Name | Role | Phone | + +------+ + PCP | Unavailable | + +------+ + Encounter Details +--------+ + + + + | Date | Type | Department | Care Team | Description | +--------+ + + + + | 03/25/ | Hospital | [facility] | Mauricio Rider | | | 2009 | Encounter | MED CTR GENERIC IP | MD [address] [facility] | | | | | CONV DEPT [address] | [place], [place] | | | | | [place], | [address] | | | | | [place] [address] | | | | | | [phone] | | | +--------+ + + + [...]
--- OUTSIDE RECORDS SUMMARY | ~2019-07-24 | XMS | Encounter Summary ---
Demographics + + + | Address | [address] | | | [place] [address] | + + + | Home Phone | | + + + | Preferred Language | Unknown | + + + | Marital Status | | + + + | Latter Day Affiliation | Unknown | + + + | Race | Unknown | + + + | Ethnic Group | Unknown | + + + Author + + + | Author | [facility] | | | and [place] | + + + | Organization | [facility] | | [...] | | | | | [place] [address] | | + + + + + | Valentín Saleh | ECON | [id number] | | | | | [place] [address] | | + + + + + | Roberto Carlos Lennon | LEVI | Unknown | | + + + + + Care Team Providers + +------+ + | Care Manager Copy Name | Role | Phone | + +------+ + | Francois Pascal MD | PCP | | + +------+ + Reason for Visit + + + | Reason | Comments | + + + | Follow-up | | + + + | Atrial Fibrillation | | + + + | Congestive Heart | | | Failure | | + + + | Hyperlipidemia | | + + + | Hypertension | | + + + | Coronary Artery | | | Disease | | + + + Encounter Details +--------+---------+ + + + | Date | Type | Department | Care Team | Description | +--------+---------+ + + + | 08/02/ | Office | [facility] | Leah, | Stenosis of carotid | | 2018 | Visit | CARDIOLOGY [address] | Charla, [employer]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 [address] | 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, unspecified | | | | [place], | [place], | laterality (Primary | | | | [place] [address] | [place] [address] | Dx); Amaurosis | | | | [phone] | [phone] | fugax; Coronary | | | | | | artery disease | | | | | | involving nisqually | | | | | | coronary artery of | | | | | | nisqually heart without | | | | | | angina pectoris; | | | | | | Congestive heart | | | | | | failure, unspecified | | | | | | HF chronicity, | | | | | | unspecified heart | | | | | | failure type ([facility]); | | | | | | Atrial fibrillation, | | | | | | unspecified type | | | | | | ([facility]); Essential | | | | | | hypertension with | | | | | | goal blood pressure | | | | | | less than 130/80 | +--------+---------+ + + + Social History [...] + + + | Blood Pressure | 118/62 | 08/02/2017 12:37 PM | | | | | PDT | | + + + + + | Pulse | 64 | 08/02/2017 12:37 PM | | | | | PDT | | + + + + + | Temperature | - | - | | + + + + + | Respiratory Rate | 16 | 08/02/2017 12:37 PM | | | | | PDT | | + + + + + | Oxygen Saturation | - | - | | + + + + + | Inhaled Oxygen | - | - | | | Concentration | | | | + + + + + | Weight | 65.5 kg (144 lb 8 | 08/02/2017 12:37 PM | | | | oz) | PDT | | + + + + + | Height | 167.6 cm (5' 6") | 08/02/2017 12:37 PM | | | | | PDT | | + + + + + | Body Mass Index | 23.32 | 08/02/2017 12:37 PM | | | [...] + + documented as of this encounter Patient Instructions Patient Instructions Charla Lynn ARNP - 08/02/2017 12:45 PM PDT1. Continue same med ications 2. Follow up in 6 months 1:3 1 PM PDT documented in this encounter Progress Notes Charla Lynn ARNP - 08/02/2017 12:45 PM PDTFormatting of this note might be differen t from the original. PATIENT NAME: Alyson Lennon : 1930: AGE: 86 y.o. PRIMARY CARE: Francois Pascal MD OUTPATIENT FOLLOW UP VISIT Date of Service: 08/02/2017 HISTORY OF PRESENT ILLNESS: Alyson Lennon is a 86 y.o. female with a history of coronary artery disease, atrial fibri llation, essential hypertension, mixed hyperlipidemia, and type 2 diabetes, stage III chroni c kidney disease. She was last seen 02/01/2018 at which time she was to continue current medical regimen is e ffective; continue present plan and medications, and follow up in 6 months, or sooner with c oncerns. Since that time, she has been having no cardiac symptoms. She has had a poor energy level. She has not been very active. She is now living in [facility] and she is not ambulating at all. She enjoys watching TV in her spare time. She has not had any chest pain or discomfort at rest or with exertion. She has not noticed shortness of breath. She has not had any l ightheadedness or dizziness. She has not noticed palpitations. She has not had leg swellin g. She sleeps on 1 pillow at night without any shortness of breath. It is noticeable today that she is very forgetfull and has a hard time finding words to answer questions. MEDICAL, SURGICAL, AND PERSONAL HISTORY Past Medical, Surgical, Family, and Social History are reviewed in EPIC. CURRENT PROBLEMS Patient Active Problem List Diagnosis CAROTID STENOSIS AMAUROSIS FUGAX DEMYELINATING DISEASE, CENTRAL NERVOUS SYSTEM FRACTURE, ANKLE, LEFT Gout, unspecified OSTEOARTHRITIS, ANKLE, LEFT FATIGUE VIRAL URI HYPERTRIGLYCERIDEMIA VITAMIN D DEFICIENCY Hypertension, renal disease DM type 2, uncontrolled, with renal complications Glossitis Coronary artery disease involving nisqually coronary artery of nisqually heart without angina pectoris Hyperlipidemia, mixed AMI [...] less than 130/80 Skin cancer Atrial fibrillation Stomatitis Reactive depression Autoimmune dermatitis S/p left hip fracture Confusion state Dementia due to Alzheimer's disease S/p left hip fracture Mild dementia CURRENT MEDICATIONS Current Outpatient Prescriptions Medication Sig Dispense Refill acetaminophen (TYLENOL) 325 mg tablet Take 2 tablets by mouth every 6 hours as needed f or Pain. 120 tablet allopurinol (ZYLOPRIM) 100 mg tablet TAKE ONE TABLET BY MOUTH TWICE A DAY 180 tablet 2 aspirin (ASPIRIN EC) 81 MG EC tablet Take 1 tablet by mouth Daily. atorvaSTATin (LIPITOR) 40 mg tablet Take 1 tablet by mouth nightly. 90 tablet 3 BD AUTOSHIELD DUO 30G X 5 MM MISC bisacodyl (DULCOLAX) [address] 1 suppository rectally Daily as needed for Constipation. 0 Xabpjum-Jofhjzvpv-Sjwlxyq D (CALCIUM 500 PO) Take 1 tablet by mouth Daily. colchicine 0.6 mg tablet 1-2 tablets by mouth as needed docusate sodium (COLACE) 250 MG capsule Take 250 mg by mouth 2 times daily. escitalopram (LEXAPRO) 10 mg tablet Take 1 tablet by mouth Daily. 30 tablet 1 folic acid 1 mg tablet Take 1 tablet by mouth Daily. 90 tablet 1 HYDROcodone-acetaminophen (NORCO) 5-325 mg per tablet Take 1 tablet by mouth every 4 ho urs as needed for Pain. 30 tablet 0 insulin aspart (NOVOLOG FLEXPEN) 100 units/mL injection pen Inject 0-12 Units under the skin 4 times daily (with meals and nightly). 15 pen 4 insulin glargine (LANTUS) 100 units/mL injection (vial) 10 units every morning and 10 u nits every evening 50 mL 6 lisinopril (PRINIVIL, ZESTRIL) 20 mg tablet TAKE ONE TABLET BY MOUTH EVERY DAY 30 table t 11 Magnesium Hydroxide (MILK OF MAGNESIA PO) Take 30 mLs by mouth as needed. methotrexate 2.5 mg tablet Take 5 tablets by mouth Once a week. Indications: Rheumatoid Arthritis 20 tablet 2 metoprolol succinate (TOPROL-XL) 100 mg ER tablet Take 1 tablet by mouth Daily. 90 tabl et 2 multivitamin (THERAGRAN) per tablet Take 1 by mouth daily Nutritional Supplements (ESPERANZA PO) Take by mouth 2 times daily. polyethylene glycol (MIRALAX) packet Take 1 diluted packet by mouth Daily as needed. 0 sodium phosphate (FLEET) enema Place 133 mLs rectally Daily as needed for Constipation. XARELTO 15 MG tablet No current facility-administered medications for this visit. ALLERGIES Allergies Allergen Reactions Codeine Sulfate Nausea And Vomiting Darvon Nausea Only Estrogens Patient can't remember Pneumococcal Vaccines Other (See Comments) Thinks it was a Prevnar, arm became red/sore/swollen ROS Review of Systems Constitutional: Positive for malaise/fatigue. Respiratory: Negative for shortness of breath. Cardiovascular: Negative for chest pain, palpitations and leg swelling. Neurological: Negative for dizziness and weakness. Lightheaded = No OBJECTIVE: PHYSICAL EXAM BP 118/62 | Pulse 64 | Resp 16 | Ht 1.676 m (5' 6") | Wt 65.5 kg (144 lb 8 oz) | BMI 2 3.32 kg/m Physical Exam Constitutional: She is oriented to person, place, and time. She appears well-developed and well-nourished. No distress. Elderly, female individual arrived on a wheelchair with her Neck: Normal carotid pulses, no hepatojugular reflux and no JVD present. Carotid bruit is n ot present. Cardiovascular: Normal rate, S1 normal, S2 normal, intact distal pulses and normal pulses. An irregular rhythm present. PMI is not displaced. Exam reveals no gallop, no S3, no S4 an d no friction rub. Murmur heard. Pulses: Carotid pulses are 2+ on the right side, and 2+ on the left side. Dorsalis pedis pulses are 2+ on the right side, and 2+ on the left side. Posterior tibial pulses are 2+ on the right side, and 2+ on the left side. Pulmonary/Chest: Effort normal and breath sounds normal. No accessory muscle usage. No resp iratory distress. She has no decreased breath sounds. She has no wheezes. She has no rhonchi . She has no rales. Abdominal: Soft. Normal appearance, normal aorta and bowel sounds are normal. She exhibits no abdominal bruit. There is no hepatosplenomegaly. There is no tenderness. Musculoskeletal: She exhibits no edema. Neurological: She is alert and oriented to person, place, and time. Gait normal. Skin: Skin is warm, dry and intact. No cyanosis. Nails show no clubbing. Psychiatric: She has a normal mood and affect. Her mood appears not anxious. She does not e xhibit a depressed mood. ECG: I personally independently reviewed ECG tracing during this visit (interpreted and sadia led by another provider): Results for orders placed or performed during the hospital encounter of 08/02/2017 ECG 12 lead Result Value Ref Range INTERPRETATION TEXT Atrial fibrillation with RBBB heart rate 60 bpm LAB RESULTS reviewed during visit today primarily from [facility]: LIPID Lab Results Component Value Date CHOL 136 (L) 05/27/2016 TRIG 208 (H) 05/27/2016 HDL 35 05/27/2016 LDL 59 05/27/2016 CHOLHDL 3.9 05/27/2016 CHEMISTRY Lab Results Component Value Date GLU 283 (H) 04/06/2017 NA 133 (L) 04/06/2017 K 4.2 04/06/2017 CL 97 (L) 04/06/2017 CO2 29 04/06/2017 CALCIUM 8.7 04/06/2017 ALKPHOS 71 09/03/2016 AST 17 09/03/2016 ALT 13 09/03/2016 BILITOT 0.5 09/03/2016 CREA 0.91 04/06/2017 BUN 25 (H) 04/06/2017 EGFR 40 (L) 02/26/2013 HEMATOLOGY Lab Results Component Value Date WBC 11.4 (H) 04/06/2017 HGB 12.0 04/06/2017 HCT 37.5 04/06/2017 PLT 231 04/06/2017 I reviewed records from PCP for office visit on 07/25/2017 which is summarized in the HPI. Above data and testing is reviewed this visit; testing below is historical data unless othe rwise specified. ASSESSMENT: 1. Extensive history of coronary artery disease involving nisqually coronary artery of nisqually heart without angina pectoris: A. Status post an anterior wall myocardial infarction complicated by VSD, status post VSD repair in 1994. B. History of an inferior wall myocardial infarction status post CABG x3 in 1996. C. An exercise myoview stress test in 2002 revealed a medium-size d scar of the anteroseptal region. LVEF by gated SPECT was 56%. D. Echocardiogram, 03/11/2016 shows mild left atrial dilatation, no rmal left ventricular size, wall thickness and motion, preserved left ventricular systolic f unction, LVEF is 55%, mildly thickened and calcified mitral valve with a mild mitral valve r egurgitation, moderate mitral annular calcification, mildly thickened and calcified trileafl et aortic valve with adequate opening, there is aortic valve sclerosis without significant a ortic valve stenosis, there is a mild aortic valve insufficiency, normal right-sided pressur e, mild ascending aorta dilatation measuring 4.1 cm in diameter, normal IVC with normal resp iratory collapse. E. Patient has been doing well cardiac ambriz. She has had no angina or dyspnea. She is mostly a total (does not ambulate at all. She is living in a [facility].There is no signs and symptoms of overt congestive heart failure. Patient is in a class II of [place] [employer] functional class. Physical exam shows no leg swelling today she is not p hysically active. 2. Atrial fibrillation: A. she is on rate control and on Xarelto for stroke prevention. 3. Hyperlipidemia, mixed: A. She is on atorvastatin 4. Essential hypertension with goal blood pressure less than 130/80: A. Today blood pressure is well controlled. 5. Stage III chronic kidney disease suspecting diabetic nephropathy A. This has been stable and improved. 6. Diabetes. A. on insulin. PLAN: 1. The current medical regimen is effective; continue present plan and medications. 2. She will follow up in 6 months, or sooner with concerns. Portions of this chart may have been created with [employer] voice recognition software. Occasi onal wrong-word or sound-alike substitutions may have occurred due to the inherent greene itations of voice recognition software. Please read the chart carefully and recognize, using context, where these substitutions have occurred. documented in th is encounter Plan of Treatment Not on filedocumented as of this encounter Procedures + +--------+ + + + | Procedure Name | Priori | Date/Time | Associated Diagnosis | Comments | | | ty | | | | + +--------+ + + + | ECG 12 LEAD | Routin | 08/02/2017 | Stenosis of | Results for this | | | e | 1:04 PM | carotid artery, | procedure are in the | | | | PDT | unspecified | results section. | | | | | laterality | | | | | | Amaurosis fugax | | | | | | Coronary artery | | | | | | disease involving | | | | | | nisqually coronary | | | | | | artery of nisqually | | | | | | heart without angina | | | | | | pectoris | | | | | | Congestive heart | | | | | | failure, unspecified | | | | | | HF chronicity, | | | | | | unspecified heart | | | | | | failure type (HCC) | | | | | | Atrial fibrillation, | | | | | | unspecified type | | | | | | (HCC) Essential | | | | | | hypertension with | | | | | | goal blood pressure | | | | | | less than 130/80 | | + +--------+ + + + documented in this encounter Results ECG 12 lead (08/02/2017 1:04 PM PDT) + + + + + + | Component | Value | Ref Range | Performed | Pathologist | | | | | At | Signature | + + + + + + | VENTRICULAR | 60 | BPM | [facility] | | | RATE EKG | | | | | + + + + + + | ATRIAL RATE | 90 | BPM | [facility] | | + + + + + + | QRS | 126 | ms | [facility] | | | DURATION | | | | | + + + + + + | Q-T | 446 | ms | [facility] | | | INTERVAL | | | | | + + + + + + | Q-T | 446 | ms | [facility] | | | INTERVAL | | | | | | (CORRECTED) | | | | | + + + + + + | QRS AXIS | -47 | degrees | [facility] | | + + + + + + | T AXIS | 160 | degrees | [facility] | | + + + + + + | INTERPRETAT | Atrial fibrillationLeft | | [facility] | | | ION TEXT | axis deviationRight | | | | | | bundle branch | | | | | | blockInferior infarct , | | | | | | age undeterminedT wave | | | | | | abnormality, consider | | | | | | lateral ischemia or | | | | | | digitalis effectAbnormal | | | | | | ECG Confirmed by LIBRADO | | | | | | GARCIA ALAMO ([id number]) on | | | | | | 08/02/2017 8:36:00 PM | | | | + + + [...] + | Diagnosis | + + | Stenosis of carotid artery, unspecified laterality - Primary | + + | Amaurosis fugax Transient arterial occlusion of retina | + + | Coronary artery disease involving nisqually coronary artery of nisqually heart without | | angina pectoris | + + | Congestive heart failure, unspecified HF chronicity, unspecified heart failure type | | (HCC) | + + | Atrial fibrillation, unspecified type (HCC) | + + | Essential hypertension with goal blood pressure less than 130/80 | + + documented in this encounter
--- OUTSIDE RECORDS SUMMARY | ~2019-07-24 | XMS | Encounter Summary ---
Demographics + + + | Address | [address] | | | [place] [address] | + + + | Home Phone | | + + + | Preferred Language | Unknown | + + + | Marital Status | | + + + | Jew Affiliation | Unknown | + + + | Race | Unknown | + + + | Ethnic Group | Unknown | + + + Author + + + | Author | [facility] | | | and [place] | + + + | Organization | [facility] | | | and [place] | + + + | Address | Unknown | + + + | Phone | Unavailable | + + + Support + + + + + | Name | Relationship | Address | Phone | + + + + + | Sigrid Lennon | ECON | [address] | | | | | [place] [address] | | + + + + + | Valentín Saleh | ECON | [address] | | | | | [place] [address] | | + + + + + | Roberto Carlos Lennon | LEVI | Unknown | | + + + + + Care Team Providers + +------+ + | Care Corrugator Name | Role | Phone | + +------+ + | Francois Pascal MD | PCP | | + +------+ + Reason for Visit +--------+ + | Reason | Comments | +--------+ + | Edema | | +--------+ + Encounter Details +--------+ + + + + | Date | Type | Department | Care Team | Description | +--------+ + + + + | 11/15/ | Telephone | [facility] | Francois Pascal, | Edema | | 2018 | | [facility] | [address] | | | | | [address] | [address] [place], | | | | | [place] | [place] [address] | | | | | [address] | [phone] | | | | | [phone] | | | +--------+ + + + [...]
--- OUTSIDE RECORDS SUMMARY | ~2019-07-24 | XMS | Encounter Summary ---
Demographics + + + | Address | [address] | | | [place] [address] | + + + | Home Phone [...] Author | [facility] | | | and [place]ana | + + + | Organization | [facility] | | | and [...] | | | | | [place] [address] | | + + + + + | Valentín Saleh | ECON | [address] | | | | | [place] [address] | | + + + + + | Roberto Carlos Lennon | LEVI | Unknown | | + + + + + Care Team Providers + +------+ + | Care Explosive Ordnance Disposal Manager Name | Role | Phone | + +------+ + | Francois Pascal MD | PCP | | + +------+ + Reason for Referral Diagnostic/Screening (Routine) +--------+--------+ + + + + | Status | Reason | Specialty | Diagnoses / | Referred By | Referred To | | | | | Procedures | Contact | Contact | +--------+--------+ + + + + | Closed | | Radiology | Diagnoses | [place], | [facility] | | | | | | MD Jennifer | [address] | | | | | Hypertension | [address] | [place], | | | | | , renal | [address] | [place] | | | | | disease, | [place], | [address] | | | | | stage 1-4 or | [place] [address] | Phone: | | | | | unspecified | Phone: | [phone] | | | | | chronic | [phone] | Fax: | | | | | kidney | Fax: | [phone] | | | | | disease | [phone] | | | | | | Essential | | | | | | | hypertension | | | | | | | with goal | | | | | | | blood | | | | | | | pressure | | | | | | | less than | | | | | | | 130/80 | | | | | | | Chronic | | | | | | | kidney | | | | | | | disease, | | | | | | | stage III | | | | | | | (moderate) | | | | | | | (HCC) | | | | | | | Procedures | | | | | | | ECHO | | | | | | | Complete [place] | | | | | | | ECHO HEART | | | | | | | XTHOJUNO,[place] | | | | | | | MPLETE W | | | | | | | DOPPLER [place] | | | | | | | ECHO HEART | | | | | | | XTHORACIC,[place] | | | | | | | MPLETE, W/O | | | | | | | DOPPLER | | | +--------+--------+ + + + + Reason for Visit +--------+ + | Reason | Comments | +--------+ + | Other | need more details | +--------+ + Encounter Details +--------+ + + + + | Date | Type | Department | Care Team | Description | +--------+ + + + + | 03/09/ | Telephone | [facility] | Jennifer Gillespie, | Other (need more | | 2017 | | CARDIOLOGY [address] | details) | | | | [address] [place], | [place], | | | | | [place] [address] | [place] [address] | | | | | [phone] | [phone] | | | | | | | [...] on filedocumented as of this encounter Results ECHO Complete (03/11/2016 10:50 AM PST) + +-------+ + + + | Component | Value | Ref Range | Performed | Pathologist | | | | | At | Signature | + +-------+ + + + | LVEF-TTE | 55 | | [facility] | | | [facility] | | | 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 Procedure | | | dateDate: 03/11/2016Start: 10:20 AM Technical Quality: Adequate | | | visualizationStudy Location: Echo Lab Patient Status: RoutineHeight: | | | 62 inchesWeight: 157 poundsBSA: 1.72 m^2BMI: 28.72 kg/m^2Rhythm: | | | Normal Sinus Rhythm ConclusionsSummary1. Mild left atrial | | | dilatation.2. Normal left ventricular size, wall thickness and motion. | | | Preserved leftventricular systolic function. LVEF is 55%.3. Mildly | | | thickened and calcified mitral valve with a mild mitral | | | valveregurgitation.4. Moderate mitral annular calcification.5. Mildly | | | thickened and calcified trileaflet aortic valve with adequateopening. | | | There is aortic valve sclerosis without significant aortic | | | valvestenosis. There is a mild aortic valve insufficiency.6. Normal | | | right-sided pressure.7. Mild ascending aorta dilatation measuring 4.1 | | | cm in diameter.8. Normal IVC with normal respiratory collapse. | | | Signature | | | | | | PM | | | -------- FindingsMitral ValveThickening and calcification of the | | | mitral valve leaflets.Mild mitral regurgitation present.Moderate | | | mitral annular calcification is present.Aortic ValveAortic valve | | | appears trileaflet.Diffuse thickening (sclerosis) of the aortic valve | | | cusps without reducedexcursion.Mild aortic regurgitation is | | | noted.Tricuspid ValveStructurally normal tricuspid valve with mild | | | regurgitation.Pulmonic ValveStructurally normal pulmonic valve without | | | significant stenosis orregurgitation.Left AtriumThe left atrium is | | | mildly dilated.Left VentricleLeft ventricle is normal in size and | | | function. Ejection fraction isestimated at 55%.Right AtriumNormal | | | right atrium.Right VentricleNormal right ventricular structure and | | | function.Pericardial EffusionNo evidence of pericardial effusion. | | | MiscellaneousNormal aortic root. Mild ascending aorta dilatation | | | measuring 4.1 cm indiameter.The IVC appears normal. Valves Mitral | | | Valve Peak E-Wave: 1.27 m/s Peak A-Wave: 1 m/s Tissue Doppler | | | Septal e' Velocity: 0.07 m/s Septal E/e' Ratio:17.33 Aortic Valve | | | Peak Velocity: 1.9 m/s Area (continuity): 0.69 | | | cm^2 Peak Gradient: 14.44 mmHg Mean Gradient: 8.48 mmHg | | | Tricuspid Valve TR Velocity: 2.13 m/s LVOT Peak Velocity: 0.66 | | | m/s LVOT Diameter: 1.54 cm Structures Left Atrium LA A/P Dimension: | | | 4.5 cm LA Area: 18.54 cm^2 LA Vol/BSA | | | Index: 32 mL/m^2 LA Volume: 55.29 ml | | | EF | | | Wjfmulekx90% Left Ventricle Diastolic Dimension: 4.48 cm | | | Systolic Dimension: 3.16 cm Septum Diastolic: 0.85 cm PW Diastolic: | | | 1.03 cm EF Calculated: 54% Miscellaneous Aorta Aortic Root: 2.92 | | | cm Ascending Aorta: 4.07 cm | | | | | | | | |Findings | | |Mitral Valve | | |Thickening and calcification of the mitral valve leaflets. | | |Mild mitral regurgitation present. | | |Moderate mitral annular calcification is present. | | |Aortic Valve | | |Aortic valve appears trileaflet. | | |Diffuse thickening (sclerosis) of the aortic valve cusps without reduced | | |excursion. | | |Mild aortic regurgitation is noted. | | |Tricuspid Valve | | |Structurally normal tricuspid valve with mild regurgitation. | | |Pulmonic Valve | | |Structurally normal pulmonic valve without significant stenosis or | | |regurgitation. | | |Left Atrium | | |The left atrium is mildly dilated. | | |Left Ventricle | | |Left ventricle is normal in size and function. Ejection fraction is | | |estimated at 55%. | | |Right Atrium | | |Normal right atrium. | | |Right Ventricle | | |Normal right ventricular structure and function. | | |Pericardial Effusion | | |No evidence of pericardial effusion. | | | | | |Miscellaneous | | |Normal aortic root. Mild ascending aorta dilatation measuring 4.1 cm in | | |diameter. | | |The IVC appears normal. | | | | | |Valves | | | | | | Mitral Valve | | | | | | Peak E-Wave: 1.27 m/s | | | Peak A-Wave: 1 m/s | | | | | | Tissue Doppler | | | | | | Septal e' Velocity: 0.07 m/s | | | Septal E/e' Ratio:17.33 | | | | | | Aortic Valve | | | | | | Peak Velocity: 1.9 m/s Area (continuity): 0.69 cm^2 | | | Peak Gradient: 14.44 mmHg Mean Gradient: 8.48 mmHg | | | | | | Tricuspid Valve | | | | | | TR Velocity: 2.13 m/s | | | | | | LVOT | | | | | | Peak Velocity: 0.66 m/s | | | LVOT Diameter: 1.54 cm | | | | | |Structures | | | | | | Left Atrium | | | | | | LA A/P Dimension: 4.5 cm LA Area: 18.54 cm^2 | | | LA Vol/BSA Index: 32 mL/m^2 LA Volume: 55.29 ml | | | EF Bzopgcypv35% | | | | | | Left Ventricle | | | | | | Diastolic Dimension: 4.48 cm Systolic Dimension: 3.16 cm | | | Septum Diastolic: 0.85 cm | | | PW Diastolic: 1.03 cm | | | EF Calculated: 54% | | | | | | Miscellaneous | | | | | | Aorta | | | | | | Aortic Root: 2.92 cm | | | Ascending Aorta: 4.07 cm | | | | | + +-- + + + | Procedure Note | + + | Al, Rad Results In - 03/11/2016 12:20 PM [facility] Transthoracic Echocardiography Report | | (TTE) Demographics Patient Name [facility] Room Number BRIDGET Patient | | Number [id number] Date of Study 03/11/2016 Visit Number [id number] | | Referring Physician BEVERLY RODRIGUEZ Number Date of | | 1930 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 | | Mild left atrial dilatation.2. Normal left ventricular size, wall thickness and motion. | | Preserved leftventricular systolic function. LVEF is 55%.3. Mildly thickened and | | calcified mitral valve with a mild mitral valveregurgitation.4. Moderate mitral annular | | calcification.5. Mildly thickened and calcified trileaflet aortic valve with | | adequateopening. There is aortic valve sclerosis without significant aortic | | valvestenosis. There is a mild aortic valve insufficiency.6. Normal right-sided | | pressure.7. Mild ascending aorta dilatation measuring 4.1 cm in diameter.8. Normal IVC | | with normal respiratory | | collapse.Signature | | ------ Electronically signed by JENNIFER GILLESPIE MD(Interpreting physician) on | | 03/11/2016 12:19 | | PM FindingsMi | | tral ValveThickening and calcification of the mitral valve leaflets.Mild mitral | | regurgitation present.Moderate mitral annular calcification is present.Aortic | | ValveAortic valve appears trileaflet.Diffuse thickening (sclerosis) of the aortic valve | | cusps without reducedexcursion.Mild aortic regurgitation is noted.Tricuspid | | ValveStructurally normal tricuspid valve with mild regurgitation.Pulmonic | | ValveStructurally normal pulmonic valve without significant stenosis | | orregurgitation.Left AtriumThe left atrium is mildly dilated.Left VentricleLeft | | ventricle is normal in size and function. Ejection fraction isestimated at 55%.Right | | AtriumNormal right atrium.Right VentricleNormal right ventricular structure and | | function.Pericardial EffusionNo evidence of pericardial effusion.MiscellaneousNormal | | aortic root. Mild ascending aorta dilatation measuring 4.1 cm indiameter.The IVC appears | | normal.Valves Mitral Valve Peak E-Wave: 1.27 m/s Peak A-Wave: 1 m/s Tissue Doppler | | Septal e' Velocity: 0.07 m/s Septal E/e' Ratio:17.33 Aortic Valve Peak Velocity: 1.9 m/s | | Area (continuity): 0.69 cm^2 Peak Gradient: 14.44 mmHg Mean | | Gradient: 8.48 mmHg Tricuspid Valve TR Velocity: 2.13 m/s LVOT Peak Velocity: 0.66 m/s | | LVOT Diameter: 1.54 cmStructures Left Atrium LA A/P Dimension: 4.5 cm | | LA Area: 18.54 cm^2 LA Vol/BSA Index: 32 mL/m^2 LA Volume: 55.29 | | ml EF Zsvsbwtzj42% Left Ventricle | | Diastolic Dimension: 4.48 cm Systolic Dimension: 3.16 cm Septum Diastolic: 0.85 | | cm PW Diastolic: 1.03 cm EF Calculated: 54% Miscellaneous Aorta Aortic Root: 2.92 cm | | Ascending Aorta: 4.07 cm | |4. Moderate mitral annular calcification. | |5. Mildly thickened and calcified trileaflet aortic valve with adequate | |opening. There is aortic valve sclerosis without significant aortic valve | |stenosis. There is a mild aortic valve insufficiency. | |6. Normal right-sided pressure. | |7. Mild ascending aorta dilatation measuring 4.1 cm in diameter. | |8. Normal IVC with normal respiratory collapse. | | | |Signature | | | | Electronically signed by JENNIFER GILLESPIE MD(Interpreting physician) on | | 03/11/2016 12:19 PM | | | | | |Findings | |Mitral Valve | |Thickening and calcification of the mitral valve leaflets. | |Mild mitral regurgitation present. | |Moderate mitral annular calcification is present. | |Aortic Valve | |Aortic valve appears trileaflet. | |Diffuse thickening (sclerosis) of the aortic valve cusps without reduced | |excursion. | |Mild aortic regurgitation is noted. | |Tricuspid Valve | |Structurally normal tricuspid valve with mild regurgitation. | |Pulmonic Valve | |Structurally normal pulmonic valve without significant stenosis or | |regurgitation. | |Left Atrium | |The left atrium is mildly dilated. | |Left Ventricle | |Left ventricle is normal in size and function. Ejection fraction is | |estimated at 55%. | |Right Atrium | |Normal right atrium. | |Right Ventricle | |Normal right ventricular structure and function. | |Pericardial Effusion | |No evidence of pericardial effusion. | | | |Miscellaneous | |Normal aortic root. Mild ascending aorta dilatation measuring 4.1 cm in | |diameter. | |The IVC appears normal. | | | |Valves | | | | Mitral Valve | | | | Peak E-Wave: 1.27 m/s | | Peak A-Wave: 1 m/s | | | | Tissue Doppler | | | | Septal e' Velocity: 0.07 m/s | | Septal E/e' Ratio:17.33 | | | | Aortic Valve | | | | Peak Velocity: 1.9 m/s Area (continuity): 0.69 cm^2 | | Peak Gradient: 14.44 mmHg Mean Gradient: 8.48 mmHg | | | | Tricuspid Valve | | | | TR Velocity: 2.13 m/s | | | | LVOT | | | | Peak Velocity: 0.66 m/s | | LVOT Diameter: 1.54 cm | | | |Structures | | | | Left Atrium | | | | LA A/P Dimension: 4.5 cm LA Area: 18.54 cm^2 | | LA Vol/BSA Index: 32 mL/m^2 LA Volume: 55.29 ml | | EF Imghkbajw52% | | | | Left Ventricle | | | | Diastolic Dimension: 4.48 cm Systolic Dimension: 3.16 cm | | Septum Diastolic: 0.85 cm | | PW Diastolic: 1.03 cm | | EF Calculated: 54% | | | | Miscellaneous | | | | Aorta | | | | Aortic Root: 2.92 cm | | Ascending Aorta: 4.07 cm | + + + + + + + | Performing | Address | City/State/Zipcode | Phone Number | | Organization | | | | + + + + + | [facility] | [address] | [place] | [phone] | | [facility] | | [address] | | | - IMAGING | | | | + + + + + documented in this encounter Visit Diagnoses + + | Diagnosis | + + | Hypertension, renal disease, stage 1-4 or unspecified chronic kidney disease - Primary | + + | Essential hypertension with goal blood pressure less than 130/80 | + + | CHRONIC KIDNEY DISEASE STAGE III (MODERATE) Chronic kidney disease, Stage III | | (moderate) | + + documented in this encounter"
--- OUTSIDE RECORDS SUMMARY | ~2019-07-24 | XMS | Encounter Summary ---
Demographics + + + | Address | [address] | | | [place] [address] | + + + | Home Phone [...] + | Author | [facility] | | | and Clarkeana | + + + | Organization | [facility] | | | and [...] | | | | | [place] [address] | | + + + + + | Valentín Saleh | ECON | [address] | | | | | [place] [address] | | + + + + + | Roberto Carlos Lennon | LEVI | Unknown | | + + + + + Care Team Providers + +------+ + | Care Rn Assessment Name | Role | Phone | + +------+ + | Francois Pascal MD | PCP | | + +------+ + Encounter Details +--------+ + + + + | Date | Type | Department | Care Team | Description | +--------+ + + + + | 11/16/ | Hospital | [facility] | Francois Pascal, | Type II diabetes | | 2016 | Encounter | MED CTR LAB[facility] | [address] | mellitus with renal | | | | [address] [place] | [address] [place], | manifestations, | | | | [place], [place] | [place] [address] | uncontrolled ([facility]) | | | | [address] | [phone] | | | | | [phone] | | | +--------+ + + + [...] TABLET BY | 90 | 1 | 10/30/19 | | | tablet | MOUTH EVERY [...] +---------+ + + | insulin aspart | 35 units SQ TID | 20 mL | 3 | 08/11/19 | | | (NOVOLOG) 100 | prior [...] +---------+ + + | insulin glargine | 110 u sq qhs | 50 mL | 6 | 08/11/19 | | | (LANTUS) 100 | | | | 16 | 7 | | units/mL injection | | | | | | | (vial)Indications: | | | | | | | Diabetes mellitus | | | | | | | due to underlying | | | | | | | condition with stage | | | | | | | 3 chronic kidney | | | | | | | disease (HCC) | | | | | | + + + +---------+ + + | JANUVIA 100 MG | TAKE ONE TABLET BY | 90 | 1 | 09/15/19 | | | tabletIndications: | MOUTH EVERY DAY | tablet | | 16 | 7 | | Type 2 diabetes | | | | | [...] TAKE 5 TABLETS BY | 20 | 2 | 10/17/19 | | | mg tablet | MOUTH [...] TABLET BY | 30 | 6 | 08/13/19 | | | 500 mg CR tablet [...] tablet by | 30 | 0 | 11/17/19 | | | 50 mg | mouth [...] + | HEMOGLOBIN A1C | Routin | 11/17/2015 | Type II diabetes | Results for this | | | e | 10:42 AM | mellitus with renal | procedure are in the | | | | PDT | manifestations, | results section. | | | | | uncontrolled (HCC) | | + +--------+ + + + documented in this encounter Results Hemoglobin A1C (11/17/2015 10:42 AM PDT) + +---------+ + + + [...] ST. | [address] | [place] | [phone] | | [facility] | | [address] | | | - LABORATORY | | | | + + + + + documented in this encounter Visit Diagnoses + + | Diagnosis | + + | Type II diabetes mellitus with renal manifestations, uncontrolled (HCC) Type II or | | unspecified type diabetes mellitus with renal manifestations, uncontrolled | + + documented in this encounter"
--- OUTSIDE RECORDS SUMMARY | ~2019-07-24 | XMS | Encounter Summary ---
Demographics + + + | Address | [address] | | | [place] [address] | + + + | Home Phone [...] + | Author | [facility] | | | and Clarkeana | + + + | Organization | [facility] | [...] | | | | | [place] [address] | | + + + + + | Valentín Saleh | ECON | [address] | | | | | [place] [address] | | + + + + + | Roberto Carlos Lennon | LEVI | Unknown | | + + + + + Care Team Providers + +------+ + | Care Boat Cleaner Name | Role | Phone | + +------+ + | No, Physician | PCP | Unavailable | + +------+ + Reason for Visit + + + | Reason | Comments | + + + | Appointment | | + + + Encounter Details +--------+ + + + + | Date | Type | Department | Care Team | Description | +--------+ + + + + | 05/13/ | Telephone | [facility] | Stephenie Paul, | Appointment | | 2019 | | CARDIOLOGY [address] | MD [address] | | | | | [place], | [place], | | | | | [place] [address] | [place] [address] | | | | | [phone] | [phone] | | | | | | | [...] do you have serious | No | 04/06/2019 | | difficulty hearing? | | | + + + + | Are you blind or do you have serious | No | 04/06/2019 | | difficulty seeing, even when wearing | | | | glasses? | | | + + + + | Do you have serious difficulty walking or | Yes | 04/06/2019 | | climbing stairs? (5 years old or older) | | | + + + + | Do you have difficulty dressing or bathing? | Yes | 04/06/2019 | | (5 years old or older) | | | + + + + | Because of a physical, mental, or emotional | Yes | 04/06/2019 | | condition, do you have difficulty [...] of a physical, mental, or emotional | Yes | 04/06/2019 | | condition, do you have serious difficulty | | | | concentrating, remembering, or making | | | | decisions? (5 years old or older) | | | + + + + documented as of this encounter Plan of Treatment Not on filedocumented as of this encounter Visit Diagnoses Not on filedocumented in this encounter"
--- OUTSIDE RECORDS SUMMARY | ~2019-07-24 | XMS | Encounter Summary ---
Demographics + + + | Address | [address] | | | [place] [address] | + + + | Home Phone [...] | Author | [facility] | | | and [place] | + + + | Organization | [facility] | | | and [place] | + + + | Address | Unknown | + + + | Phone | Unavailable | + + + Support + + + + + | Name | Relationship | Address | Phone | + + + + + | Sigrid Lennon | ECON | [address] | | | | | [place] [address] | | + + + + + | Valentín Saleh | ECON | [address] | | | | | [place] [address] | | + + + + + | Roberto Carlos Lennon | LEVI | Jeyson | | + + + + + Care Team Providers + +------+ + | Care Hedge Fund Trader Name | Role | Phone | + +------+ + PCP | Unavailable | + +------+ + Encounter Details +--------+ + + + + | Date | Type | Department | Care Team | Description | +--------+ + + + + | 12/01/ | Hospital | [facility] | | | | 2005 | Encounter | [facility] CTR LAB[facility] | | | | | | [address] | | | | | | [place] | | | | | | [address] | | | | | | [phone] | | | +--------+ + + + [...]
--- OUTSIDE RECORDS SUMMARY | ~2019-07-24 | XMS | Encounter Summary ---
Demographics + + + | Address | [address] | | | [place] [address] | + + + | Home Phone [...] Author | [facility] | | | and [place] | + + + | Organization | [facility] | | | and [...] | | | | | [place] [address] | | + + + + + | Valentín Saleh | ECON | [address] | | | | | [place] [address] | | + + + + + | Roberto Carlos Lennon | LEVI | Unknown | | + + + + + Care Team Providers + +------+ + | Care Nozzle Worker Name | Role | Phone | + +------+ + | Francois Pascal MD | PCP | | + +------+ + Reason for Visit + + + | Reason | Comments | + + + | Medication Prior | Needs paperwork faxed back to office. | | Authorization | | + + + Encounter Details +--------+ + + + + | Date | Type | Department | Care Team | Description | +--------+ + + + + | 03/03/ | Telephone | [facility] | Francois Pascal, | Medication Prior | | 2014 | | MEDICINE [facility] | [address] | Authorization (Needs | | | | [place] | [address], | paperwork faxed | | | | [place] [address] | [place] [address] | back to office.) | | | | [phone] | [phone] | | | | | | | [...]
--- OUTSIDE RECORDS SUMMARY | ~2019-07-24 | XMS | Encounter Summary ---
Demographics + + + | Address | [address] | | | [place] [address] | + + + | Home Phone [...] Author | [facility] | | | and [place] | + + + | Organization | [facility] | | | and [...] | | | | | [place] [address] | | + + + + + | Valentín Saleh | ECON | [address] | | | | | [place] [address] | | + + + + + | Roberto Carlos Lennon | LEVI | Unknown | | + + + + + Care Team Providers + +------+ + | Care Custom Car Builder Name | Role | Phone | + +------+ + | Francois Pascal MD | PCP | | + +------+ + Reason for Visit + + + | Reason | Comments | + + + | Therapy Daily | | | Treatment | | + + + Evaluate & [...] | instability | [address] | [place] | | | | n | [address] | [place], | | | | | (ICD-10-CM) | [place] | [place] [address] | | | | | - [address] | [place] | Phone: | | | | | (ICD-9-CM) - | [address] | [phone] | | | | | Gait | Phone: | Fax: | | | | | instability | [phone] | [phone] | | | | | Procedures | Fax: | | | | | | pt eval | [phone] | | +--------+ + + + + + Encounter Details +--------+---------+ + + + | Date | Type | Department | Care Team | Description | +--------+---------+ + + + | 01/08/ | Office | [facility] | Francois Pascal, | Posture imbalance | | 2015 | Visit | MED CTR THERAPY PT | [address] | (Primary Dx); | | | | OP [address] | [address] [place], | Impaired functional | | | | [place] | [place] [address] | mobility, balance, | | | | [address] | [phone] | gait, and endurance; | | | | [phone] | | Left ankle pain | | | | | Kely Quinn B, PT | | | | | | [address] | | | | | | [place] | | | | | | [address] | | | | | | | [...] encounter Progress Notes Kely Green, PT - 01/08/2015 2:18 PM PSTFormatting of this note might be different from t he original. [facility] CTR THERAPY PT OP [address] [place] [address] Physical Therapy Daily Treatment Note Date: 01/08/2015 Patient Information Patient Name: Alyson Lennon Date of : 1930 Age: 84 y.o. Encounter Diagnoses Code Name Primary? R29.3 Posture imbalance Yes Z74.09 Impaired functional mobility, balance, gait, and endurance M25.572 Left ankle pain Date of Onset: 10/24/14 Referring Provider: Francois Pascal MD Rehab Precautions Office Visit from 12/24/2014 in [facility] CTR THERAPY PT OP Rehab Precautions Precautions Comments fall risk Start Time: 1415 Stop time: 1500 Duration: 45 minutes Timed Treatment Codes: 45 minutes # of PT Visits to Date: 3 Subjective: Pt reports she was sore after last session but can tell that therapy is helping. Pain Assessment Pain Scale Used: NUMERIC Pain Rating Pre Assessment: 4 Pain Rating Post Assessment: 1 Location: left ankle/heel Objective: Manual Therapy: left ankle grade III-IV mobs to increased DF/PF Exercise/Activity 12/24/14 01/08/15 Left ankle DF/PF 1x10 Left ankle "Alphabet" x DF stretch on incline board 3x30 sec Rocker board (PF/DF) 4x20 squats 2x20 Heel raises 2x15 Gait activities 180 feet x3 Resisted gait; focus on heel-toe Left ankle ROM DF/PF: post 8-0-15 deg 20-0-10 deg Assessment: pt demonstrated significantly improve gait pattern after manual therapy and khurram erated all activities well without increase in left ankle pain. Pt would benefit from cont. Therapy to progress left ankle ROM/strength in order to improve gait and dynamic balance to improve safety at home and in the community. Next Visit: cont with left ankle manual therapy as indicated, cont. LE strengthening and ba gregorio/gait activities Electronically signed by: Kely Green PT, 01/08/2015 18:02 Patient Name: Alyson Lennon/: 1930/ documented in this encou nter Plan of Treatment Not on filedocumented as of this encounter Visit Diagnoses + + | Diagnosis | + + | Posture imbalance - Primary Disorders of soft tissue, unspecified | + + | Impaired functional mobility, balance, gait, and endurance | + + | Left ankle pain Pain in joint, ankle and foot | + + documented in this encounter
--- OUTSIDE RECORDS SUMMARY | ~2019-07-24 | XMS | Encounter Summary ---
Demographics + + + | Address | [address] | | | [place] [address] | + + + | Home Phone | | + + + | Preferred Language | Unknown | + + + | Marital Status | | + + + | Sikhism Affiliation | Unknown | + + + | Race | Unknown | + + + | Ethnic Group | Unknown | + + + Author + + + | Author | [facility] | | | and [place] | + + + | Organization | [facility] | | | and [...] | | | | | [place] [address] | | + + + + + | Valentín Saleh | ECON | [address] | | | | | [place] [address] | | + + + + + | Roberto Carlos Lennon | LEVI | Unknown | | + + + + + Care Team Providers + +------+ + | Care Industrial Spray Painter Name | Role | Phone | + +------+ + | Francois Pascal MD | PCP | | + +------+ + Reason for Visit +--------+ + | Reason | Comments | +--------+ + | Other | | +--------+ + Encounter Details +--------+ + + + + | Date | Type | Department | Care Team | Description | +--------+ + + + + | 02/10/ | Telephone | [facility] | Stephenie Paul, | Other | | 2015 | | CARDIOLOGY [address] | MD [address] | | | | | [place], | [place], | | | | | [place] [address] | [place] [address] | | | | | [phone] | [phone] | | | | | | | [...]
--- OUTSIDE RECORDS SUMMARY | ~2019-07-24 | XMS | Encounter Summary ---
Demographics + + + | Address | [address] | | | [place] [address] | + + + | Home Phone | | + + + | Preferred Language | Unknown | + + + | Marital Status | | + + + | Latter-Day Affiliation | Unknown | + + + | Race | Unknown | + + + | Ethnic Group | Unknown | + + + Author + + + | Author | [facility] | | | and [place] | + + + | Organization | [facility] | | | and [place] | + + + | Address | Unknown | + + + | Phone | Unavailable | + + + Support + + + + + | Name | Relationship | Address | Phone | + + + + + | Sigrid Lennon | ECON | [address] | | | | | [place] [address] | | + + + + + | Valentín Saleh | ECON | [address] | | | | | [place] [address] | | + + + + + | Roberto Carlos Lennon | LEVI | Unknown | | + + + + + Care Team Providers + +------+ + | Care Senior Clinical Sas Programmer Name | Role | Phone | + +------+ + | Francois Pascal MD | PCP | | + +------+ + Encounter Details +--------+ + + + + | Date | Type | Department | Care Team | Description | +--------+ + + + + | 03/14/ | Hospital | [facility] | Francois Pascal, | DM (diabetes | | 2012 - | Encounter | MED CTR LABORATORY | [address] | mellitus) ([facility]LY [facility]); | | | | [address] [place] | [address] [place], | ARTHRITIS, CHRONIC | | 03/16/ | | [place], [place] | [place] [address] | | | 2012 | | [address] | [phone] | | | | | [phone] | | | +--------+ + + + [...] + +---------+ + + | amLODIPine | Take 5 mg by mouth | | 0 | 11/18/19 | | | (NORVASC) 5 mg | Daily. | | | 12 | 3 | | tablet | | [...] +---------+ + + | cholecalciferol | Take 1,000 Units by | | 0 | 09/28/19 | | | (VITAMIN D-3) 1,000 | mouth 2 times daily. | | | 12 | 3 | | units capsule | | | [...] folic acid 1 mg | Take 1 mg by mouth | | 0 | 11/18/19 | | | tablet | Daily. | | | 12 | 3 | + + + +---------+ + + | furosemide (LASIX) | Take 40 mg by mouth | | 0 | 11/18/19 | | | 40 mg tablet | Daily. | | | 12 | 3 | + + + +---------+ + + | insulin aspart | 50 Units. Injection | | 0 | 08/24/19 | | | (NOVOLOG) 100 | as directed. 17 | | | 12 | 3 | | units/mL injection | units a.m. 22 units | | | | | | | before lunch, 27 | | | | | | | units before before | | | | | | | dinner | | | | | + + + +---------+ + + | insulin glargine | 110 units qhs | 5 pen | 3 | 12/27/19 | | | (LANTUS) 100 | | | | 12 | 3 | | units/mL | | | | | | | injectionIndications | | | | | | | : DM (diabetes | | | | | | | mellitus) ([facility]) | | | | | | + + + +---------+ + + | JANUVIA 100 MG | TAKE 1 TABLET BY | 90 each | 1 | 03/09/19 | | | tablet | MOUTH EVERY DAY | | | 13 | 3 | + + + +---------+ + + | lisinopril | Take 40 mg by mouth | | 0 | 11/18/19 | | | (PRINIVIL,ZESTRIL) | Daily. | | | 12 | 3 | | 40 MG tablet | | | | | | + + + +---------+ + + | methotrexate 2.5 | TAKE 5 TABLETS BY | 20 | 2 | 03/06/20 | | | mg | MOUTH WEEKLY | tablet | | 12 | 3 | | tabletIndications: | | | | | | | Chronic arthritis | | | | | | + + + +---------+ + + | multivitamin | Take 1 by mouth | | 0 | 11/18/19 | | | (THERAGRAN) per | daily | | | 12 | 9 | | tablet | | | | | | + + + +---------+ + + | niacin (NIASPAN) | Take 500 mg by mouth | | 0 | 06/21/19 | | | 500 mg CR tablet | Daily. | | | 12 | 3 | + + + +---------+ + + | simvastatin | Take 1/2 tablet by | | 0 | 04/09/19 | | | (ZOCOR) 40 mg tablet | mouth every day | | | 11 | 3 | + + + +---------+ + + | TOPROL XL 200 MG | TAKE 1 TABLET BY | 90 each | 1 | 03/09/19 | | | 24 hr tablet | MOUTH EVERY DAY | | | 13 | 3 | + + + +---------+ + + | ZYLOPRIM 100 MG | TAKE 1 TABLET BY | 180 | 3 | 12/20/19 | | | tablet | MOUTH TWICE DAILY | each | | 12 | 3 | + + + +---------+ + + documented as of this encounter Progress Gabbie Meeks - 03/15/2012 12:08 PM PST Quick Note: Letter sent to patient Advising. Appointment 03-29-12. Gabbie Doan CMA opalmer, Francois Tello MD - 03/14/2012 4:36 PM PST Quick Note: Ok for jovana to notify patient that he has somewhat abnormal labs and would like to discuss w ronn a month. documented in thi s encounter Plan of Treatment Not on filedocumented as of this encounter Procedures + +--------+ + + + | Procedure Name | Priori | Date/Time | Associated Diagnosis | Comments | | | ty | | | | + +--------+ + + + | CBC WITH | Routin | 03/14/2012 | ARTHRITIS, CHRONIC | Results for this | | DIFFERENTIAL | e | 9:32 AM | | procedure are in the | | | | PST | | results section. | + +--------+ + + + | HEMOGLOBIN A1C | Routin | 03/14/2012 | DM (diabetes | Results for this | | | e | 9:32 AM | mellitus) (HCC) | procedure are in the | | | | PST | | results section. | + +--------+ + + + | COMPREHENSIVE | Routin | 03/14/2012 | ARTHRITIS, CHRONIC | Results for this | | METABOLIC PANEL | e | 9:32 AM | | procedure are in the | | | | PST | | results section. | + +--------+ + + + documented in this encounter Results CBC w/ Differential (03/14/2012 9:32 AM PST) + + + + + + | Component | Value | Ref Range | Performed | Pathologist | | | | | At | Signature | + + + + + + | WBC | 9.3 | 4.0 - 11.0 K/uL | [facility] | | | | | | [facility] | | | | | | [facility] | | | | | | [facility] - | | | | | | LABORATORY | | + + + + + + | RBC | 3.89 | 3.70 - 5.20 | [facility] | | | | | M/uL | [facility] | | | | | | [facility] | | | | | | [facility] - | | | | | | LABORATORY | | + + + + + + | Hemoglobin | 14.0 | 11.5 - 16.0 | [facility] | | | | | gm/dL | [facility] | | | | | | [facility] | | | | | | C[facility] - | | | | | | LABORATORY | | + + + + + + | Hematocrit | 41.7 | 34.0 - 47.0 % | [facility] | | | | | | [facility] | | | | | | [facility] | | | | | | [facility] - | | | | | | LABORATORY | | + + + + + + | MCV | 107.2 (H) | 83.0 - 101.0 fL | [...] + + + + | RDW-CV | 14.9 | <15.0 % | [facility] | | | | | | [facility] | | | | | | [facility] | | | | | | C[facility] - | | | | | | LABORATORY | | + + + + + + | Platelet | 196 | 140 - 440 K/uL | [facility] | | | Count | | | [facility] | | | | | | [facility]ICAL | | | | | | CENTER - | | | | | | LABORATORY | | + + + + + + | % | 53.0 | 45 - 75 % | [facility] | | | Neutrophils | | | [facility] | | | | | | MEDICAL | | | | | | CENTER - | | | | | | LABORATORY | | + + + + + + | % | 26.6 | 20 - 45 % | [facility] | | | Lymphocytes | | | [facility] | | | | | | MEDICAL | | | | | | CENTER - | | | | | | LABORATORY | | + + + + + + | % Monocytes | 12.9 (H) | 4 - 12 % | [facility] [...] + | % Basophils | 0.8 | 0 - 1 % | [facility] | | | | | | [facility] | | | | | | MEDICAL | | | | | | CENTER - | | | | | | LABORATORY | | + + + + + + | Absolute | 4.9 | 1.5 - 6.6 K/uL | [facility] | | | Neutrophils | | | [facility] | | | | | | [facility]ICAL | | | | | | CENTER - | | | | | | LABORATORY | | + + + + + + | Absolute | 2.5 | 0.6 - 3.2 K/uL | [facility] | | | Lymphocytes | | | [facility] | | | | | | MEDICAL | | | | | | CENTER - | | | | | | LABORATORY | | + + + + + + | Absolute | 1.2 (H) | 0.0 - 1.0 K/uL | [facility] [...] + + + + | Absolute | 0.1 | 0.0 - 0.1 K/uL | [facility] [...] + | [facility] | [address] | [place] | [phone] | | [facility] | | [address] | | | - LABORATORY | | | | + + + + + | [facility] | [address] | [place] | | | [facility] | | [address] | | | - LABORATORY | | | | + + + + + Comprehensive metabolic panel (03/14/2012 9:32 AM PST) [...] | | | Protein | | | [facility] | | [...] 44 (L)Comment: For | >60 mL/min/A | [facility] | | | GFR | -Americans, | [...] + | | [facility] | | | [facility] | | | [facility] | | | - LABORATORY | + + + + + + + + | Performing | Address | City/State/Zipcode | Phone Number | | Organization | | | | + + + + + | [facility] | [address] | [place] | [phone] | | [facility] | | [address] | | | - LABORATORY | | | | + + + + + | [facility] | [address] | [place] | | | [facility] | | [address], [facility] | | | - LABORATORY | | | | + + + + + Hemoglobin A1c (03/14/2012 9:32 AM PST) + [...] + | [facility] | [address] | [place] | [phone] | | [facility] | | [address] | | | - LABORATORY | | | | + + + + + | [facility] | [address] | [place] | | | [facility] | | [address], [facility] | | | - LABORATORY | | | | + + + + + documented in this encounter Visit Diagnoses + + | Diagnosis | + + | DM (diabetes mellitus) ([facility]) Type II or unspecified type diabetes mellitus without | | mention of complication, not stated as uncontrolled | + + | ARTHRITIS, CHRONIC Arthropathy, unspecified, site unspecified | + + documented in this encounter"
--- OUTSIDE RECORDS SUMMARY | ~2019-07-24 | XMS | Encounter Summary ---
Demographics + + + | Address | [address] | | | [place] [address] | + + + | Home Phone | | + + + | Preferred Language | Unknown | + + + | Marital Status | | + + + | Pentecostalism Affiliation | Unknown | + + + | Race | Unknown | + + + | Ethnic Group | Unknown | + + + Author + + + | Author | [facility] | | | and [place] | + + + | Organization | [facility] | | | and [place] | + + + | Address | Unknown | + + + | Phone | Unavailable | + + + Support + + + + + | Name | Relationship | Address | Phone | + + + + + | Sigrid Lennon | ECON | [address] | | | | | [place] [address] | | + + + + + | Valentín Saleh | ECON | [address] | | | | | [place] [address] | | + + + + + | Roberto Carlos Lennon | LEVI | Unknown | | + + + + + Care Team Providers + +------+ + | Care Oxygen System Tester Name | Role | Phone | + [...] Description | +--------+--------+ + + + | 03/03/ | Refill | [facility] | Francois Pascal, | Medication Refill | | 2015 | | MEDICINE [employer] [facility] | [address] | | | | | [facility] | [address] [place], | | | | | [place] [address] | [place] [address] | | | | | [phone] | [phone] | | | | | | | [...]
--- OUTSIDE RECORDS SUMMARY | ~2019-07-24 | XMS | Encounter Summary ---
Demographics + + + | Address | [address] | | | [place] [address] | + + + | Home Phone [...] + | Author | [facility] | | | and [place] | + + + | Organization | [facility] | | | and [place] | + + + | Address | Unknown | + + + | Phone | Unavailable | + + + Support + + + + + | Name | Relationship | Address | Phone | + + + + + | Sigrid Lennon | ECON | [address] | | | | | [place] [address] | | + + + + + | Valentín Saleh | ECON | [address] | | | | | [place] [address] | | + + + + + | Roberto Carlos Lennon | LEVI | Unknown | | + + + + + Care Team Providers + +------+ + | Care Tripe Finisher Name | Role | Phone | + +------+ + | Francois Pascal MD | PCP | | + +------+ + Reason for Visit +--------+ + | Reason | Comments | +--------+ + | LABS | | +--------+ + Encounter Details +--------+ + + + + | Date | Type | Department | Care Team | Description | +--------+ + + + + | 08/19/ | Telephone | [facility] | Francois Pascal, | LABS | | 2017 | | MEDICINE [address] | [address] | | | | | [place] | [address] [place], | | | | | [place] [address] | [place] [address] | | | | | [phone] | [phone] | | | | | | | [...] on filedocumented as of this encounter Results Urinalysis with Microscopic with Culture if Indicated (08/19/2016 2:29 PM PDT) + + + + + [...] + + + + + + | Clarity | Hazy (A) | Clear | [facility] | | | | | [...] + + + + | Specific | 1.018 | 1.001 - 1.030 | [facility] | | | [place], | | | [facility] | | [...] Urine | | mg/dL, Negative | [facility] | | | | | | MEDICAL | | | | | | CENTER - | | | | | | LABORATORY | | + + + + + + | White Blood | 2-5 (A) | 0 - 2 /HPF | [facility] | | | Cells, | | | [facility] | | | Urine | | | MEDICAL | | | | | | CENTER - | | | | | | LABORATORY | | + + + + + + | Red Blood | 2-5 (A) | 0 - 2 /HPF | [facility] | | | Cells, | | | [facility] | | | Urine | | | MEDICAL | | | | | | CENTER - | | | | | | LABORATORY | | + + + + + + | Squamous | 25-50 (A) | 0 - 2 /LPF | [facility] | | | Epithelial | | | [facility] | | | Cells, | | | MEDICAL | | | Urine | | | CENTER - | | | | | | LABORATORY | | + + + + + + | Transitiona | 0-2 | 0 - 2 /HPF | [facility] | | | l | | | [facility] | | | Epithelial | | | MEDICAL | | | Cells, | | | CENTER - | | | Urine | | | LABORATORY | | + [...] + + + + + + | Hyaline | 15-25 (A) | 0 - 2 /LPF | [facility] | | | Casts, | | | [facility] | | | Urine | | | MEDICAL | | | | | | CENTER - | | | | | | LABORATORY | | + + + + + + | Urine | Urine Culture Not | | [facility] | | | Comment | Indicated | | [facility] | | | | | | MEDICAL | | | | | | CENTER - | | | | | | LABORATORY | | + + + + + + + + | Specimen | + + | Urine - Urine | | specimen obtained by | | clean catch | | procedure (specimen) | + + + + + + + | Performing | Address | City/State/Zipcode | Phone Number | | Organization | | | | + + + + + | [facility] | [address] | [place] | [phone] | | [facility] | | [address] | | | - LABORATORY | | | | + + + + + documented in this encounter Visit Diagnoses + + | Diagnosis | + + | Urinary tract infection without hematuria, site unspecified - Primary | + + documented in this encounter"
--- OUTSIDE RECORDS SUMMARY | ~2019-07-24 | XMS | Encounter Summary ---
Demographics + + + | Address | [address] | | | [place] [address] | + + + | Home Phone [...] | Author | [facility] | | | and [place] | + + + | Organization | [facility] | | | and [place] | + + + | Address | Unknown | + + + | Phone | Unavailable | + + + Support + + + + + | Name | Relationship | Address | Phone | + + + + + | Sigrid Lennon | ECON | [address] | | | | | [place] [address] | | + + + + + | Valentín Saleh | ECON | [address] | | | | | [place] [address] | | + + + + + | Roberto Carlos Lennon | LEVI | Unknown | | + + + + + Care Team Providers + +------+ + | Care Toe Puncher Name | Role | Phone | + +------+ + | Francois Pascal MD | PCP | | + +------+ + Encounter Details +--------+ + + + + | Date | Type | Department | Care Team | Description | +--------+ + + + + | 06/08/ | Hospital | [facility] | [place], | | | 2011 | Encounter | MED CTR XRAY [address] | Kemar Wilson SALES CLERK [address] | | | | | [place] | [facility] | | | | | [place] [address] | [address] [place] | | | | | [phone] | [address] | | | | | | | [...] | + +--------+ + + + | US RENAL LIMITED | | 06/09/2011 | | Results for this | | | | 12:39 PM | | procedure are in the | | | | PDT | | results section. | + +--------+ + + + documented in this encounter Results US Renal Limited (06/09/2011 12:39 PM PDT) + + | Specimen | + + | | + + + + + | Narrative | Performed At | + + + | [facility] Diagnostic Imaging Department | [facility] | | [address] [facility] | [facility] | | RENAL ULTRASOUND, 06/09/2011 | DIAG IMG | | CLINICAL HISTORY: CHRONIC KIDNEY DISEASE. COMPARISON: None. | | | FINDINGS: The right kidney measures 10.1 x 4.0 x 4.0 cm and the | | | left kidney measures 10.1 x 4.1 x 4. 1 cm. A 10 mm rounded anechoic | | | cyst arises from the mid right kidney. Both kidneys demonstrate | | | incr eased parenchymal echotexture and resistive indices are | | | borderline to mildly elevated, measuring 0.66 on the right and 0.76 | | | on the left. There is no hydronephrosis. The bladder is | | | unremarkable in cont our and appearance. A post void residual | | | volume of 8 mL is calculated. Bilateral ureteral jets are observed | | | during the study. IMPRESSION: 1. FINDINGS CONSISTENT WITH | | | BILATERAL MEDICAL RENAL DISEASE. NO HYDRONEPHROSIS. 2. SMALL | | | ANECHOIC RIGHT RENAL CYST. 3. SMALL POST VOID BLADDER RESIDUAL OF | | | 8 ML. Dictated Date/Time: 06/09/2011 15:00 Transcribed | | | Date/Time: 06/09/2011 15:32 Case Resolution Specialist: | | | <Electronically Signed by Benedcit Vigil MD> 06/09/11 2241 | | + + + + + | Procedure Note | + + | Al, Rad Conversion - 04/13/2013 5:03 PM [facility] | | Diagnostic Imaging Department [address] [place] [address] | | RENAL ULTRASOUND, 06/09/2011 CLINICAL HISTORY: CHRONIC | | KIDNEY DISEASE. COMPARISON: None. FINDINGS: The right kidney measures 10.1 x 4.0 x 4.0 | | cm and the left kidney measures 10.1 x 4.1 x 4.1 cm. A 10 mm rounded anechoic cyst | | arises from the mid right kidney. Both kidneys demonstrate increased parenchymal | | echotexture and resistive indices are borderline to mildly elevated, measuring 0.66 on | | the right and 0.76 on the left. There is no hydronephrosis. The bladder is | | unremarkable in contour and appearance. A post void residual volume of 8 mL is | | calculated. Bilateral ureteral jets are observed during the study. IMPRESSION: 1. | | FINDINGS CONSISTENT WITH BILATERAL MEDICAL RENAL DISEASE. NO HYDRONEPHROSIS. 2. SMALL | | ANECHOIC RIGHT RENAL CYST. 3. SMALL POST VOID BLADDER RESIDUAL OF 8 ML. Dictated | | Date/Time: 06/09/2011 15:00Transcribed Date/Time: 06/09/2011 15:32Transcriptionist: | | <Electronically Signed by Benedict Vigil MD> 06/09/112240 | |eased parenchymal echotexture and resistive indices are borderline to mildly elevated, william uring 0.66 | | on the right and 0.76 on the left. There is no hydronephrosis. The bladder is unremarkab le in cont | |our and appearance. A post void residual volume of 8 mL is calculated. Bilateral ureteral jets are | |observed during the study. | | | |IMPRESSION: | |1. FINDINGS CONSISTENT WITH BILATERAL MEDICAL RENAL DISEASE. NO HYDRONEPHROSIS. | | | |2. SMALL ANECHOIC RIGHT RENAL CYST. | | | |3. SMALL POST VOID BLADDER RESIDUAL OF 8 ML. | | | |Dictated Date/Time: 06/09/2011 15:00 | |Transcribed Date/Time: 06/09/2011 15:32 | |Case Resolution Specialist: | |<Electronically Signed by Benedict Vigil MD> 06/09/112240 | + + + +---------+ + + | Performing | Address | City/State/Zipcode | Phone Number | | Organization | | | | + +---------+ + + | [place] | | | | | [place] | | | | + +---------+ + + documented in this encounter Visit Diagnoses Not on filedocumented in this encounter"
--- OUTSIDE RECORDS SUMMARY | ~2019-07-24 | XMS | Encounter Summary ---
Demographics + + + | Address | [address] | | | [place] [address] | + + + | Home Phone [...] [facility] | | | and [place] | + + + | Organization | [facility] | | | and [...] | | | | | [place] [address] | | + + + + + | Valentín Saleh | ECON | [phone] | | | | | [place] [address] | | + + + + + | Roberto Carlos Lennon | LEVI | Unknown | | + + + + + Care Team Providers + +------+ + | Care Manufacturing Technician Name | Role | Phone | + +------+ + | Francois Pascal MD | PCP | | + +------+ + Reason for Visit + + + | Reason | Comments | + + + | Chronic Kidney | | | Disease, Stage III | | + + + Encounter Details +--------+---------+ + + + | Date | Type | Department | Care Team | Description | +--------+---------+ + + + | 08/03/ | Office | [facility] | Francois Pascal, | Stomatitis (Primary | | 2017 | Visit | MEDICINE [facility] | [address] | Dx); Autoimmune | | | | [address] [place] | [address], | dermatitis; Chronic | | | | [place] [address] | [place] [address] | pain of left ankle; | | | | [phone] | [phone] | S/p left hip | | | | | | fracture; CHRONIC | | | | | | KIDNEY DISEASE STAGE | | | | | | III (MODERATE) | +--------+---------+ + + + Social [...] + + + | Blood Pressure | 94/52 | 08/03/2016 9:15 AM | | | | | PDT | | + + + + + | Pulse | 51 | 08/03/2016 9:15 AM | | | | | PDT | | + + + + + | Temperature | 36.3 C (97.3 F) | 08/03/2016 9:15 AM | | | | | PDT | | + + + + + | Respiratory Rate | 16 | 08/03/2016 9:15 AM | | | | | PDT | | + + + + + | Oxygen Saturation | 97% | 08/03/2016 9:15 AM | | | | | PDT | | + + + + + | Inhaled Oxygen | - | - | | | Concentration | | | | + + + + + | Weight | 72.1 kg (159 lb) | 08/03/2016 9:15 AM | | | | | PDT | | + + + + + | Height | 167.6 cm (5' 6") | 08/03/2016 9:15 AM | | | | | PDT | | + + + + + | Body Mass Index | 25.66 | 08/03/2016 9:15 AM | | | | | PDT [...] documented as of this encounter Progress Notes Airam Menjivar RN - 08/03/2016 9:15 AM PDTCalled and [facility] per Dr Pascal, patient is not to be given her Methotrexate for at least 4 weeks due t o recent hip fracture. nurse Diamond states patient 's Methotrexate was to be given on . Order was placed on July 13. Diamond to be notified if Dr Pascal indicates patien t is not to be given medication for another 4 weeks. Diamond notified, per Dr. Pascal, patient is okay to resume Methotrexate on August 09. El ectronically signed by Airam Menjivar RN at 08/05/2016 9:28 AM PDTMorasFrancois martins MD - 08/03/2016 9:15 AM PDT Subjective: Patient ID: Alyson Lennon is a 85 y.o. female. HPI Left hip fracture, S/p fall 07/[address] Barbosa. She has a hx of autoimmune Gl ossitis and is now off her MTX to facilitate healing of her Left femur. She is not in any p ain. Tongue is now sore but a little better than last visit. Her pain is "good today" be cause she is not on her medication. She is complying with PT. She is sleeping and eating ok but her appetite is still not very good. Her does not think she is ready for di scharge to home. Dr Barbosa still does not want her to be weight bearing. Depression, seems to be helping her frustration. She is feeling down and frustra rachel because of all of her health problems. Glossitis/ Autoimmune Dermatitis, The skin on the forehead is not painful or itchty at thi s point. She is looking forward to restarting the MTX. CKD, this is worsened post op, She is trying to drink plenty of fluid. Past Medical History: Type 2 DM with [...] VSD Father 50 Pneumonia Family Hx of Susquehanna's chorea Sister and 2 brothers: CAD, Susquehanna's Disease to Sigrid - with 2 Healthy Children No kidney disease in family. Social History: Born in [facility] for [facility] years. and Remarried [...] back pain, no joint swelling and No arthralgias. so me joint pain Skin: Neg for color change,no [...] motion Skin, no gross lesions Assessment: 1. Stomatitis 2. Autoimmune dermatitis 3. Chronic pain of left ankle 4. S/p left hip fracture Plan: She is appearing much improved in demeanor today. She can restart the MTX in documented in this encounter Plan of Treatment Not on filedocumented as of this encounter Visit Diagnoses + + | Diagnosis | + + | Stomatitis - Primary Stomatitis and mucositis, unspecified | + + | Autoimmune dermatitis | + + | Chronic pain of left ankle | + + | S/p left hip fracture | + + | CHRONIC KIDNEY DISEASE STAGE III (MODERATE) Chronic kidney disease, Stage III | | (moderate) | + + documented in this encounter
--- OUTSIDE RECORDS SUMMARY | ~2019-07-24 | XMS | Encounter Summary ---
Demographics + + + | Address | [address] | | | [place] [address] | + + + | Home Phone | | + + + | Preferred Language | Unknown | + + + | Marital Status | | + + + | Roman Catholic Affiliation | Unknown | + + + | Race | Unknown | + + + | Ethnic Group | Unknown | + + + Author + + + | Author | [facility] | | | and [place] | + + + | Organization | [facility] | | | and [place] | + + + | Address | Unknown | + + + | Phone | Unavailable | + + + Support + + + + + | Name | Relationship | Address | Phone | + + + + + | Sigrid Lennon | ECON | [address] | | | | | [place] [address] | | + + + + + | Valentín Saleh | ECON | [address] | | | | | [place] [address] | | + + + + + | Roberto Carlos Lennon | LEVI | Unknown | | + + + + + Care Team Providers + +------+ + | Care Marine Pilot Name | Role | Phone | + +------+ + | Francois Pascal MD | PCP | | + +------+ + Encounter Details +--------+ + + + + | Date | Type | Department | Care Team | Description | +--------+ + + + + | 06/02/ | Hospital | [facility] | [place], | CHRONIC KIDNEY | | 2016 | Encounter | MED CTR LABORATORY | [address] | DISEASE STAGE III | | | | [address] [place] | [address] [facility] | (MODERATE); Vitamin | | | | [place], [place] | [address] [place], [place] | D deficiency | | | | [address] | [address] | | | | | [phone] | | | +--------+ + + + [...] | | | | | | hyperglycemia ([facility]) | | | | | [...] | | | | | | mellitus) ([facility]) | | | | | [...] + | VITAMIN D, | Routin | 06/03/2015 | CHRONIC KIDNEY | Results for this | | DEFICIENCY SCREEN | e | 12:43 PM | DISEASE STAGE III | procedure are in the | | (25-HYDROXY) | | PDT | (MODERATE) Vitamin | results section. | | | | | D deficiency | | + +--------+ + + + | RENAL FUNCTION PANEL | Routin | 06/03/2015 | CHRONIC KIDNEY | Results for this | | | e | 12:43 PM | DISEASE STAGE III | procedure are in the | | | | PDT | (MODERATE) Vitamin | results section. | | | | | D deficiency | | + +--------+ + + + documented in this encounter Results Vitamin D, 25-Hydroxy (06/03/2015 12:43 PM PDT) + +-------+ + + + | Component | Value | Ref Range | Performed | Pathologist | | | | | At | Signature | + +-------+ + + + | Vitamin D, | 42 | 30 - 80 ng/mL | [facility] [...] + | [facility] | [address] | [place] | [phone] | | [facility] | | [address] | | | - LABORATORY | | | | + + + + + Renal Function Panel (06/03/2015 12:43 PM PDT) + + + + + [...] + + + + | K | 3.8 | 3.5 - 5.1 | [facility] | [...] + + + | Anion Gap | 13 | 3 - 16 mmol/L | [facility] | | | | | | [facility] | | | | | | [facility] | | | | | | C[facility] - | | | | | | LABORATORY | | + + + + + + | Glucose | 191 (H) | 70 - 109 mg/dL | [facility] | | | | | | [facility] | | | | | | [facility] | | | | | | CENTER - | | | | | | LABORATORY | | + + + + + + | BUN | 43 (H) | 7 - 18 mg/dL | [facility] | | | | | [facility] | | | | | | [facility] | | | | | | C[facility] - | | | | | | LABORATORY | | + + + + + + | Creatinine | 1.67 (H) | 0.60 - 1.30 | [facility] | | | | | mg/dL | [facility] | | | | | | MEDICAL | | | | | | CENTER - | | | | | | LABORATORY | | + + + + + + | eGFR if not | 29 (L) | >=60 | [facility] | | | | | mL/min/1.73m2 | [facility] | | | [facility] | | | MEDICAL | | | [...] + + + + | Phosphorus | 3.8 | 2.5 - 4.6 mg/dL | [facility] | | | | | [facility] | | | | | | [facility] | | | | | | C[facility] - | | | | | | LABORATORY | | + + + + + + | BUN/Creatin | 25.7 | | [facility] | | | ine [...] + | [facility] | [address] | [place] | [phone] | | [facility] | | [address] | | | - LABORATORY | | [...]
--- OUTSIDE RECORDS SUMMARY | ~2019-07-24 | XMS | Encounter Summary ---
Demographics + + + | Address | [address] | | | [place] [address] | + + + | Home Phone | | + + + | Preferred Language | Unknown | + + + | Marital Status | | + + + | Amish Affiliation | Unknown | + + + | Race | Unknown | + + + | Ethnic Group | Unknown | + + + Author + + + | Author | [facility] | | | and [place] | + + + | Organization | [facility] | | | and [...] | | | | | [place] [address] | | + + + + + | Valentín Saleh | ECON | [address] | | | | | [place] [address] | | + + + + + | Roberto Carlos Lennon | LEVI | Unknown | | + + + + + Care Team Providers + +------+ + | Care Music Promoter Name | Role | Phone | + [...] Description | +--------+--------+ + + + | 01/26/ | Refill | [facility] [place] [facility] | Francois Pascal, | Medication Refill | | 2015 | | MEDICINE [place] | [address] | | | | | [address] | [address], | | | | | [place] | [place] [address] | | | | | [address] | [phone] | | | | | [phone] | | | +--------+--------+ + + + [...]
--- OUTSIDE RECORDS SUMMARY | ~2019-07-24 | XMS | Encounter Summary ---
Demographics + + + | Address | [address] | | | [place] [address] | + + + | Home Phone [...] | Author | [facility] | | | and [place] | + + + | Organization | [facility] [...] | | | | | [place] [address] | | + + + + + | Valentín Saleh | ECON | [address] | | | | | [place] [address] | | + + + + + | Roberto Carlos Lennon | LEVI | [place] | | + + + + + Care Team Providers + +------+ + | Care Rn Baby Name | Role | Phone | + +------+ + PCP | Unavailable | + +------+ + Encounter Details +--------+ + + + + | Date | Type | Department | Care Team | Description | +--------+ + + + + | 05/27/ | Hospital | [facility] | Francois Pascal, | | | 2008 | Encounter | MED CTR LABORATORY | [address] | | | | | [address] [place] | [address], | | | | | [place] | [place] [address] | | | | | [address] | [phone] | | | | | [phone] | | | +--------+ + + + [...]
--- OUTSIDE RECORDS SUMMARY | ~2019-07-24 | XMS | Encounter Summary ---
Demographics + + + | Address | [address] | | | [place] [address] | + + + | Home Phone | | + + + | Preferred Language | Unknown | + + + | Marital Status | | + + + | Islam Affiliation | Unknown | + + + | Race | Unknown | + + + | Ethnic Group | Unknown | + + + Author + + + | Author | [facility] | | | and [place] | + + + | Organization | [facility] | | | and [place] | + + + | Address | Unknown | + + + | Phone | Unavailable | + + + Support + + + + + | Name | Relationship | Address | Phone | + + + + + | Sigrid Lennon | ECON | [address] | | | | | [place] [address] | | + + + + + | Valentín Saleh | ECON | [address] | | | | | [place] [address] | | + + + + + | Roberto Carlos Lennon | LEVI | Unknown | | + + + + + Care Team Providers + +------+ + | Care Technical Staff Assistant Name | Role | Phone | + [...] | 03/20/ | Refill | [facility] [place] | Stephenie Paul, | Medication Refill | | 2014 | | CARDIOLOGY [address] | [address] [place] | | | | | [place], | [place], | | | | | [place] [address] | [place] [address] | | | | | [phone] | [phone] | | | | | | | [...]
--- OUTSIDE RECORDS SUMMARY | ~2019-07-24 | XMS | Encounter Summary ---
Demographics + + + | Address | [address] | | | [place] [address] | + + + | Home Phone [...] | [facility] | | | and [place] | + + + | Organization | [facility] | | | and [place] | + + + | Address | Unknown | + + + | Phone | Unavailable | + + + Support + + + + + | Name | Relationship | Address | Phone | + + + + + | Sigrid Lennon | ECON | [address] | | | | | [place] [address] | | + + + + + | Valentín Saleh | ECON | [address] | | | | | [place] [address] | | + + + + + | Roberto Carlos Lennon | LEVI | Unknown | | + + + + + Care Team Providers + +------+ + | Care Forestry And Wildlife Manager Name | Role | Phone | [...] | 11/13/ | Refill | [facility] [place] [facility] | Francois Pascal, | Medication Refill | | 2019 | | MEDICINE [place] | [address] | | | | | [address] | [address], | | | | | [place] | [place] [address] | | | | | [address] | [phone] | | | | | [phone] | | | +--------+--------+ + + + [...] this encounter Plan of Treatment [facility] encounter Visit Diagnoses Not on filedocumented in this encounter"
--- OUTSIDE RECORDS SUMMARY | ~2019-07-24 | XMS | Clinical Summary ---
Demographics + + + | Address | [address] | | | [place] [address] | + + + | Home Phone | | + + + | Preferred Language | Unknown | + + + | Marital Status | Single | + + + | Baptism Affiliation | UNK | + + + | Race | White | + + + | Ethnic Group | Not or | + + + Author + + + | Author | [facility] | + + + | Organization | [facility] | + + + | Address | Unknown | + + + | Phone | Unavailable | + + + Support + + + + + | Name | Relationship | Address | Phone | + + + + + | Sigrid Lennon | LEVI | [address] | | | | | [place] [address] | | + + + + + | None None | ECON | Unknown | Unavailable | + + + + + Care Team Providers + +------+ + | Care Beam House Inspector Name | Role | Phone | + +------+ + PCP | Unavailable | + +------+ + Source Comments UBALDO is fully live on both [facility] and [facility] Allergies No Known Allergies Medications + + + +---------+------+------+-------+ | Medication | Sig | Dispensed | Refills | Star | End | Statu | | | | | | t | Date | s | | | | | | Date | | | + + + +---------+------+------+-------+ | VITAMIN D 50,000 | 1 tab every 14 days | | 0 | | | Activ | | UNIT CAP | | | | | | e | + + + +---------+------+------+-------+ | ASPIRIN 81 MG TAB | 2 tabs a day | | 0 | | | Activ | | | | | | | | e | + + + +---------+------+------+-------+ | ASPIRIN 325 MG | 1 a week | | 0 | | | Activ | | ORAL TAB | | | | | | e | + + + +---------+------+------+-------+ | INSULIN NPH HUMAN | 20 units in am, and | | 0 | | | Activ | | RECOMB 100 UNIT/ML | 25 units before | | | | | e | | SUBQ CARTRIDGE | diiner daily | | | | | | + + + +---------+------+------+-------+ | INSULIN 70/30 SC | 10 units in am, 14 | | 0 | | | Activ | | | units before dinner | | | | | e | | | daily | | | | | | + + + +---------+------+------+-------+ | LANTUS 100 UNIT/ML | 45 units at bedtime | | 0 | | | Activ | | SUB-Q | daily | | | | | e | + + + +---------+------+------+-------+ | LISINOPRIL 40 MG | 1 tablet daily | | 0 | | | Activ | | TAB | | | | | | e | + + + +---------+------+------+-------+ | | 1 tab daily | | 0 | | | Activ | | HYDROCHLOROTHIAZIDE | | | | | | e | | 25 MG ORAL TAB | | | | | | | + + + +---------+------+------+-------+ | ZOCOR 40 MG TAB | 1/2 tablet daily | | 0 | | | Activ | | | | | | | | e | + + + +---------+------+------+-------+ | TOPROL XL 100 MG | take 1 1/2 tabs a | | 0 | | | Activ | | 24 HR TAB | day | | | | | e | + + + +---------+------+------+-------+ | BENICAR 40 MG TAB | 1 tablet daily | | 0 | | | Activ | | | | | | | | e | + + + +---------+------+------+-------+ | METHOTREXATE | 5 tablets a week | | 0 | | | Activ | | SODIUM 2.5 MG TAB | | | | | | e | + + + +---------+------+------+-------+ | FOLIC ACID 1 MG | 1 tablet daily | | 0 | | | Activ | | TAB | | | | | | e | + + + +---------+------+------+-------+ Active Problems + + + | Problem | Noted Date | + + + | Soreness of tongue | 01/13/2005 | + + + Social History + +-------+ [...] recent travel history available. | + + Last Filed Vital Signs Not on file Plan of Treatment + + + + + | Health Maintenance | Due Date | Last Done | Comments | + + + + + | Pneumococcal | | | | | vaccination (1 of 2 | 7 | | | | - PCV13) | | | | + + + + + | Influenza (Flu) | | | | | vaccination (#1) | 9 | | | + + + + + Results Not on filefrom Last 3 Months Insurance + +--------+ +--------+ + +--------+ | Payer | Benefi | Subscriber | Effect | Phone | Address | Type | | | t Plan | ID | geovany | | | | | | / | | Dates | | | | | | Group | | | | | | + +--------+ +--------+ + +--------+ | MODA | MODA | xxxxxxxxx | Effect | [phone] | [address] | PPO | | | [place] | | geovany | 4 | [phone] | | | | [place] | | for | | [place], | | | | | | all | | [place] [address] | | | | | | dates | | | | + +--------+ +--------+ + +--------+ | MEDICARE | MEDICA | xxxxxxxxxx | | [phone] | [address] | Medica | | | RE A & | | [phone] | [address] | | | B | | esent | | [place] | | | | | | | | [phone] | | + +--------+ +--------+ + +--------+ + +--------+ +--------+ + + | Guarantor Name | Accoun | Relation to | Date | Phone | Billing Address | | | t Type | Patient | of | | | | | | | | | | + +--------+ +--------+ + + | ALYSON WHITNEY | Person | Self | [birth year] | [address] | | | al/Fam | | 1931 | [phone] | [place] [address] | | | ian | | | 1 (Home) | | + +--------+ +--------+ + +"
--- OUTSIDE RECORDS SUMMARY | ~2019-07-24 | XMS | Encounter Summary ---
Demographics + + + | Address | [address] | | | [place] [address] | + + + | Home Phone | | + + + | Preferred Language | Unknown | + + + | Marital Status | | + + + | Zoroastrianism Affiliation | Unknown | + + + | Race | Unknown | + + + | Ethnic Group | Unknown | + + + Author + + + | Author | [facility] | | | and [place] | + + + | Organization | [facility] | [...] | | | | | [place] [address] | | + + + + + | Valentín Saleh | ECON | [address] | | | | | [place] [address] | | + + + + + | Roberto Carlos Lennon | LEVI | Unknown | | + + + + + Care Team Providers + +------+ + | Care Cripple Cutter Name | Role | Phone | + +------+ + | Francois Pascal MD | PCP | | + +------+ + Encounter Details +--------+ + + + + | Date | Type | Department | Care Team | Description | +--------+ + + + + | 05/16/ | Abstract | [facility] | Francois Pascal, | | | 2019 | | [facility]IC[facility] [place] | [address] | | | | | [address] | [address], | | | | | [place] | [place] [address] | | | | | [address] | [phone] | | | | | [phone] | | | +--------+ + + + [...] | + +--------+ + + + | EXTERNAL: | Routin | 03/23/2002 | | Results for this | | COLONOSCOPY | e | | | procedure are in the | | | | | | results section. | + +--------+ + + + documented in this encounter Results EXTERNAL: COLONOSCOPY (03/23/2002) + + + + + + | Component | Value | Ref Range | Performed | Pathologist | | | | | At | Signature | + + + + + + | Colonoscopy | Redundant atonic colon. | | | | | | | | | | | Impression, | | | | | | External | | | | | + + + + + + documented in this encounter Visit Diagnoses Not on filedocumented in this encounter"
--- OUTSIDE RECORDS SUMMARY | ~2019-07-24 | XMS | Encounter Summary ---
Demographics + + + | Address | [address] | | | [place] [address] | + + + | Home Phone [...] + | Author | [facility] | | | and [place] | + + + | Organization | [facility] | | [...] | | | | | [place] [address] | | + + + + + | Valentín Saleh | ECON | [address] | | | | | [place] [address] | | + + + + + | Roberto Carlos Lennon | LEVI | Unknown | | + + + + + Care Team Providers + +------+ + | Care Soyfreeze Operator Name | Role | Phone | [...] | | | | | | | ([facility]) | | | | | | | [...] + + | 07/10/ | Hospital | [facility] | [place], | Intertrochanteric | | 2017 - | Encounter | MED CTR SURGICAL | Francois Marie MD [address] | fracture of left | | | | [address] [place] | [address] [place] | hip, closed, initial | | 07/13/ | | [place] [address] | [place] [address] | encounter (HCC) | | 2017 | | [phone] | [phone] | (Primary Dx); Fall | | | | | | at home, initial | | | | | He Davis MD | encounter; Essential | | | | | [address] | hypertension; | | | | | [place] | Atrial fibrillation, | | | | [...] | | | | | | involving nightmute | | | | | | coronary artery of | | | | | | nightmute heart without | | | | | [...] Eddy MD - 07/13/2016 12:12 PM PDT [facility] DISCHARGE SUMMARY Pt. Name/Age/: Alyson Lennon 85 y.o. 1930 Date of Admission: 07/10/2016 Date of Discharge: 07/13/2016 Admitting Physician: He Davis MD Primary Care Provider: Francois Pascal MD Discharging Physician: Josiah Eddy MD DISCHARGE [...] 7. 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 Specialty: [facility] Facility Contact information: [place] [address] Barbosa for orthopedic follow-up in 7-[address] Capone for follow-up in 2 weeks PENDING RESULTS: HOSPITAL COURSE: Please refer to the H&P for full details. In short This 85-year-old female presented foll owing a fall with left hip pain. Radiographs in the emergency room showed evidence of a int ertrochanteric fracture. She was seen in consultation by Dr. Ru Barbosa and taken to surg veronica on 07/10 [...] and continued on a moderate sliding scale. Januvia has not b een reinitiated yet. The patient also has a history of being assessed for stomatitis approx imately 20 years ago at [facility] and was advised they thought this was [...] time based on her course. Per Dr. Barbosa she is nonweightbearing for the first 6 weeks and he will assess at that ryan e whether or not weightbearing as tolerated. Currently for therapy she is touch weight-bear alone. Care and orders relative to the patient's hip surgery should be directed toward Dr. Barbosa and her PCP at the time of [...] signed by: Josiah Eddy MD, 07/13/2016 12:13 [facility] Portions of this chart may have been created with [employer] voice recognition software. Occasi onal wrong-word or [...] | | 0 | | | | Iifxpet-Qjfjxetcf-Yk | mouth Daily. | | | | 8 | | tamin D (CALCIUM 500 | [...] Davis MD - 07/12/2016 3:50 PM PDT [facility] HOSPITALIST PROGRESS NOTE Patient: Alyson Lennon : 1930: Age: 85 y.o. MedRec: [id number] PCP: Francois Pascal MD Admission date: 07/10/2016 Hospital day # [...] He Davis MD 650 mg a t 07/12/16930 allopurinol (ZYLOPRIM) tablet 100 mg 100 mg Oral Daily He Davis MD 100 mg at 0 07/12/16919 aspirin EC tablet 81 mg 81 mg Oral Daily He Davis MD 81 mg at 07/12/16919 atorvaSTATin (LIPITOR) tablet 40 mg 40 mg Oral Nightly He Davis MD 40 mg at 2028 colchicine tablet 0.6 mg 0.6 mg Oral Daily PRN He Davis MD dextrose 50% injection 12.5 g 12.5 g Intravenous PRN He Davis MD docusate sodium (COLACE) capsule 100 mg 100 mg Oral BID PRN He Davis MD 100 mg at 07/12/16918 folic acid tablet 1 mg 1 mg Oral Daily He Davis MD 1 mg at 07/12/16919 hydrALAZINE (APRESOLINE) injection 10 mg 10 mg Intravenous Q4H PRN He Davis MD 10 mg at 07/10/16 1808 HYDROcodone-acetaminophen (NORCO) 5-325 mg per tablet 1 tablet 1 tablet Oral Q4H PRN R kimberley Davis MD 1 tablet at 07/12/16 1329 insulin lispro [...] New-onset A. Fib: -Rate is controlled, continue cementer -Asymptomatic -Continue Xarelto for anticoagulation *Pending SNF placement DVT Prophylaxis Xarelto Code Status Full Code. Total time of approximately 25 minutes was spent with the patient and/or patient's family, and/or on the patient's floor/unit, of which more than 50% was spent counseling and/or coord ination the patient's care as outlined above. He Davis 07/12/2016 15:51 [facility] Brea Jay RN - 07/12/2016 10:30 AM PDTLate entry: Leave original left hip drsg intact, do not change at this time .. Per Dr. BarbosaElectronically signed by Brea Gonzalez RN at 1:40 PM Ru Royal MD - 07/12/2016 10:27 AM PDTOrtho: Awake and alert with mild pain dressing intact with small amount of blood tinge NVM intact Continue PT as tolerated Will need SNF placement 10: 28 AM Aliza Bateman RN - 07/11/2016 5:44 PM [id number] report from Ramakrishna , assumed care of this pt. Pt sitting up in chair with chair alarm inplace. Electronically signed by: Aliza Sanchez RN 07/11/2016 17:46 Shelia Acevedo MD - 07/11/2016 1:59 PM PDT [facility] HOSPITALIST PROGRESS NOTE Patient: Alyson Lennon : 1930: Age: 85 y.o. MedRec: [id number] PCP: Francois Pascal MD Admission date: 07/10/2016 Hospital day # [...] He Davis MD 100 mg at 0 07/11/16827 amLODIPine (NORVASC) tablet 5 mg 5 mg [...] 12.5 mg 12.5 mg Intravenous Q4H PRN Francois Ring II, MD docusate sodium (COLACE) capsule [...] 0.25-1 mg 0.25-1 mg Intravenous Q2H PRN Francois Ring II, MD insulin glargine (LANTUS SOLOSTAR) [...] 2.5-5 mg 2.5-5 mg Intravenous Q4H PRN Francois Ring II, MD 2.5 mg at 07/10/16 1809 naloxone (NARCAN) 0.4 mg/mL injection 0.04 mg 0.04 mg Intravenous PRN Francois mohan II, MD naloxone (NARCAN) 0.4 mg/mL injection 0.4 mg 0.4 mg Intravenous Once PRN Francois iRng II, MD ondansetron (ZOFRAN) injection 4 mg 4 mg Intravenous Q6H PRN Francois Ring II, MD 4 mg at 07/10/16 [...] PRN He Davis MD 8.6 mg at 2031 ASSESSMENT and PLAN: There are no hospital [...] as outlined above. He Davis 07/11/2016 13:59 [facility] u Barbosa MD - 07/11/2016 11:29 AM PDTOrtho: PO day 1 Sitting up in a chair and states very little pain Dressing intact without drainage NVM intact Continue PT, toe touch wt bearing Will probably need SNF placement.Electronically signed by Ru Barbosa MD at 07/11 11:31 AM Monica Marie, NATURAL RESOURCES SPECIALIST - 07/10/2016 6:00 PM PDTPt really not able to perform. Michelle Bauman, PharmD - 07/10/2016 1:50 PM PDTFormatting of this note might be different fr om the original. PHARMACY SERVICES: ADMISSION MEDICATION REVIEW Alyson Lennon is a 85 y.o. female admitted on [...] office: [x] Pharmacy list names: [facility] [x] [facility] MEDIA PRODUCTION OPERATOR (Prescription Monitoring Program) [x] [employer] insurance reported [...] review performed and electronically signed by Jose Myers, Radio Interference Expert 017 13:09 Reviewed by: Michelle Cabrera PHARMD 07/10/2016 13:45 documented in this encounter Plan of Treatment [...] ST. | [address] | [place], [place] | [phone] | | [facility] | | [address] | | | - LABORATORY | | [...] | | | | | g/dL | [facility] | | | | [...] + | [facility] | [address] | [place] | [phone] | | [facility] | | [address] | | | - LABORATORY | | [...] | | | | mmol/L | [facility] | | | | [...] (H) | 7 - 18 mg/dL | [facility] | | | | | | [facility] | | | | | | MEDICAL | | | | | | CENTER - | | | | | | LABORATORY | | + + + + + + | Creatinine | 1.10 | 0.60 - 1.30 | [facility] | | | | | mg/dL | [facility] | | | | | | MEDICAL | | | | | | CENTER - | | | | | | LABORATORY | | + + + + + + | eGFR if not | 47 (L)Comment: | >=60 | [facility] | | | | GLOMERULAR FILTRATION | mL/min/1.73m2 | [facility] | | | [facility] | RATE,ESTIMATED | | MEDICAL | | | | mL/min/1.18q0Icls than | | CENTER - | | [...] | | | | | mg/dL | [facility] | | | | | | MEDICAL | | | | | | CENTER - | | | | | | LABORATORY | | + + + + + + | BUN/Creatin | 25.5 | | [facility] | | | ine Ratio | | | [facility] | | | | | [...] [address] | [place] | [phone] | | [facility] | | [address] | | | - LABORATORY | | [...] | | | POC | | | [facility] | | | [...] + + | [facility] | [address] | [place] | [phone] | | [facility] | | [address] | | | - LABORATORY | | [...] + + | [facility] | [address] | [place] | [phone] | | [facility] | | [address] | | | - LABORATORY | | [...] + | [facility] | [address] | [place] | [phone] | | [facility] | | [address] | | | - LABORATORY | | [...] by | | | | | | ROSALBA VERDUGO MD ([id number]) | | | | | | on [...] | 1.25 | 0.60 - 1.30 | [facility] | | | | | mg/dL | [facility] | | | | | | MEDICAL | | | | | | CENTER - | | | | | | LABORATORY | | + + + + + + | eGFR if not | 41 (L)Comment: | >=60 | [place] | | | | GLOMERULAR FILTRATION | mL/min/1.73m2 | [facility] | | | [facility] | RATE,ESTIMATED | | MEDICAL | | | | mL/min/1.87p5Cpnl than | | CENTER - | | [...] [address] | [place] | [phone] | | [facility] | | [address] | | | - LABORATORY | | | | + + + + + CBC with Differential (07/12/2016 6:21 AM PDT) + + + + + + | Component | Value | Ref Range | Performed | Pathologist | | | | | At | Signature | + + + + + + | WBC | 14.3 (H) | 4.0 - 11.0 K/uL | [facility] | | | | | | [facility] | | | | | | MEDICAL | | | | | | CENTER - | | | | | | LABORATORY | | + + + + + + | RBC | 3.50 (L) | 3.70 - 5.20 [...] [address] | [place] | [phone] | | [facility] | | [address] | | | - LABORATORY | | [...] [address] | [place] | [phone] | | [facility] | | [address] | | | - LABORATORY | | [...] + | [facility] | [address] | [place] | [phone] | | [facility] | | [address] | | | - LABORATORY | | [...] + | [facility] | [address] | [place] | [phone] | | [facility] | | [address] | | | - LABORATORY | | [...] [address] | [place] | [phone] | | [facility] | | [address] | | | - LABORATORY | | [...] + | [facility] | [address] | [place] | [phone] | | [facility] | | [address] | | | - LABORATORY | | | | + + + + + CBC no Differential (07/11/2016 6:21 AM PDT) + + + + + + | Component | Value | Ref Range | Performed | Pathologist | | | | | At | Signature | + + + + + + | WBC | 15.2 (H) | 4.0 - 11.0 K/uL | [facility] | | | | | | [facility] | | | | | | MEDICAL | | | | | | CENTER - | | | | | | LABORATORY | | + + + + + + | RBC | 3.67 (L) | 3.70 - 5.20 | [facility] | | | | | M/uL | [facility] | | | | [...] ST. | [address] | [place], [place] | [phone] | | [facility] | | [address] | | | - LABORATORY | | [...] 1.35 (H) | 0.60 - 1.30 | [facility] | | | | | mg/dL | [facility] | | | | | | MEDICAL | | | | | | CENTER - | | | | | | LABORATORY | | + + + + + + | eGFR if not | 37 (L)Comment: | >=60 | [facility] | | | | GLOMERULAR FILTRATION | mL/min/1.73m2 | [facility] | | | [facility] | RATE,ESTIMATED | | MEDICAL | | | | mL/min/1.71s0Yqrh than | | CENTER - | | [...] [address] | [place] | [phone] | | [facility] | | [address] | | | - LABORATORY | | [...] + + | [facility] | [address] | [place] | [phone] | | [facility] | | [address] | | | - LABORATORY | | [...] + | [facility] | [address] | [place] | [phone] | | [facility] | | [address] | | | - LABORATORY | | [...] | Taras Melendez Results In - 07/10/2016 6:41 PM PDT [...] signed: 07/10/2016 6:38 PM | + + [place] C-Jim Stats No Charge (07/10/2016 2:29 PM PDT) + + | [...] + + + + | Clarity | Clear | Clear | [facility] | [...] - 1.030 | [facility] | | | [employer], | | | [facility] | | [...] | | Comment | Indicated | | [facility] | | | [...] ST. | [address] | [place] | [phone] | | [facility] | | [address] | | | - LABORATORY | | | | + + + + + Extra Blood Bank Tube (07/10/2016 9:30 AM PDT) + + + + + + | Component | Value | Ref Range | Performed | Pathologist | | | | | At | Signature | + + + + + + | Hold BB | Hold Specimen | | [facility] | | | | | | [facility] | | | | | | MEDICAL | | | | | | [place] - | | | | | | [...] St | [place] | | | [facility] | | [address] | | | - BLOOD BANK | [...] + | [facility] | [address] | [place] | [phone] | | [facility] | | [address] | | | - LABORATORY | | [...] [address] | [place] | [phone] | | [facility] | | [address] | | | - LABORATORY | | [...] | | Time | | seconds | [facility] | | | | [...] + | [facility] | [address] | [place] | [phone] | | [facility] | | [address] | | | - LABORATORY | | [...] | | | | | | [facility] | | | | | | MEDICAL | | | | | | CENTER - | | | | | | LABORATORY | | + + + + + + | Creatinine | 1.06 | 0.60 - 1.30 | [facility] | | | | | mg/dL | [facility] | | | | | | MEDICAL | | | | | | CENTER - | | | | | | LABORATORY | | + + + + + + | eGFR if not | 49 (L)Comment: | >=60 | [facility] | | | | GLOMERULAR FILTRATION | mL/min/1.73m2 | [facility] | | | [facility] [place] | RATE,ESTIMATED | | MEDICAL | | | | mL/min/1.05z2Dmxg than | | CENTER - | | [...] ST. | [address] | [place], [place] | [phone] | | [facility] | | [address] | | | - LABORATORY | | | | + + + + + CBC with Differential (07/10/2016 9:30 AM PDT) + + + + + + | Component | Value | Ref Range | Performed | Pathologist | | | | | At | Signature | + + + + + + | WBC | 15.9 (H) | 4.0 - 11.0 K/uL | [facility] | | | | | | [facility] | | | | | | MEDICAL | | | | | | CENTER - | | | | | | LABORATORY | | + + + + + + | RBC | 4.42 | 3.70 - 5.20 | [...] | | | | | | [facility] | | | | [...] [facility] | | | Basophils | | K/uL | [facility] | | | | [...] 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
--- OUTSIDE RECORDS SUMMARY | ~2019-07-24 | XMS | Encounter Summary ---
Demographics + + + | Address | [address] | | | [place] [address] | + + + | Home Phone [...] | Author | [facility] | | | and [place] | + + + | Organization | [facility] | | | and [place] | + + + | Address | Unknown | + + + | Phone | Unavailable | + + + Support + + + + + | Name | Relationship | Address | Phone | + + + + + | Sigrid Lennon | ECON | [address] | | | | | [place] [address] | | + + + + + | Valentín Saleh | ECON | [address] | | | | | [place] [address] | | + + + + + | Roberto Carlos Lennon | LEVI | Unknown | | + + + + + Care Team Providers + +------+ + | Care Project Coach Name | Role | Phone | + +------+ + | Francois Pascal MD | PCP | | + +------+ + Reason for Visit +--------+ + | Reason | Comments | +--------+ + | DME | | +--------+ + Encounter Details +--------+ + + + + | Date | Type | Department | Care Team | Description | +--------+ + + + + | 10/11/ | Telephone | [facility] | Francois Pascal, | DME | | 2019 | | MEDICINE [place] | [address] | | | | | [address] | [address], | | | | | [place] | [place] [address] | | | | | [address] | [phone] | | | | | [phone] | | | +--------+ + + + [...] + | Diagnosis | + + | Gait instability - Primary Abnormality of gait | + + | Physical deconditioning Debility, unspecified | + + | Arthrosis of left ankle | + + documented in this encounter"
--- OUTSIDE RECORDS SUMMARY | ~2019-07-24 | XMS | Encounter Summary ---
Demographics + + + | Address | [address] | | | [place] [address] | + + + | Home Phone [...] | Author | [facility] | | | and [place] | + + + | Organization | [facility] | | | [...] | | | | | [place] [address] | | + + + + + | Valentín Saleh | ECON | [address] | | | | | [place] [address] | | + + + + + | Roberto Carlos Lennon | LEVI | Unknown | | + + + + + Care Team Providers + +------+ + | Care Manager Radio Name | Role | Phone | + [...] + + | 12/05/ | Telephone | [facility] | Francois Pascal, | Appointment | | 2017 | | MEDICINE [place] | [address] | | | | | [address] | [address] [place], | | | | | [place] | [place] [address] | | | | | [address] | [phone] | | | | | [phone] | | | +--------+ + + + [...]
--- OUTSIDE RECORDS SUMMARY | ~2019-07-24 | XMS | Encounter Summary ---
Demographics + + + | Address | [address] | | | [place] [address] | + + + | Home Phone | | + + + | Preferred Language | Unknown | + + + | Marital Status | | + + + | Adventism Affiliation | Unknown | + + + | Race | Unknown | + + + | Ethnic Group | Unknown | + + + Author + + + | Author | [facility] | | | and [place] | + + + | Organization | [facility] | | | and [place] | + + + | Address | Unknown | + + + | Phone | Unavailable | + + + Support + + + + + | Name | Relationship | Address | Phone | + + + + + | Sigrid Lennon | ECON | [address] | | | | | [place] [address] | | + + + + + | Valentín Saleh | ECON | [address] | | | | | [place] [address] | | + + + + + | Roberto Carlos Lennon | LEVI | [place] | | + + + + + Care Team Providers + +------+ + | Care Sampling Theory Teacher Name | Role | Phone | + +------+ + PCP | Unavailable | + +------+ + Encounter Details +--------+ + + + + | Date | Type | Department | Care Team | Description | +--------+ + + + + | 05/09/ | Hospital | [facility] | | | | 2006 | Encounter | MED CTR XRAY [address] | | | | | | [place] | | | | | | [place] [address] | | | | | | [phone] | | | +--------+ + + + [...]
--- OUTSIDE RECORDS SUMMARY | ~2019-07-24 | XMS | Encounter Summary ---
Demographics + + + | Address | [address] | | | [place] [address] | + + + | Home Phone | | + + + | Preferred Language | Unknown | + + + | Marital Status | | + + + | Yazidi Affiliation | Unknown | + + + | Race | Unknown | + + + | Ethnic Group | Unknown | + + + Author + + + | Author | [facility] | | | and [place] | + + + | Organization | [facility] | | | and [place] | + + + | Address | Unknown | + + + | Phone | Unavailable | + + + Support + + + + + | Name | Relationship | Address | Phone | + + + + + | Sigrid Lennon | ECON | [address] | | | | | [place] [address] | | + + + + + | Valentín Saleh | ECON | [address] | | | | | [place] [address] | | + + + + + | Roberto Carlos Lennon | LEVI | Unknown | | + + + + + Care Team Providers + +------+ + | Care Software Test Engineer Name | Role | Phone | [...] | 02/05/ | Refill | [facility] | Stephenie Paul, | Medication Refill | | 2012 | | CARDIOLOGY [address] | MD [address] [place] | | | | | [place], | [place], | | | | | [place] [address] | [place] [address] | | | | | [phone] | [phone] | | | | | | | [...]
--- OUTSIDE RECORDS SUMMARY | ~2019-07-24 | XMS | Encounter Summary ---
Demographics + + + | Address | [address] | | | [place] [address] | + + + | Home Phone | | + + + | Preferred Language | Unknown | + + + | Marital Status | | + + + | Confucianist Affiliation | Unknown | + + + | Race | Unknown | + + + | Ethnic Group | Unknown | + + + Author + + + | Author | [facility] | | | and [place] | + + + | Organization | [facility] | | | and [...] | | | | | [place] [address] | | + + + + + | Valentín Saleh | ECON | [address] | | | | | [place] [address] | | + + + + + | Roberto Carlos Lennon | LEVI | [place] | | + + + + + Care Team Providers + +------+ + | Care Track Machine Operator Repairer Name | Role | Phone | + +------+ + PCP | Unavailable | + +------+ + Encounter Details +--------+ + + + + | Date | Type | Department | Care Team | Description | +--------+ + + + + | 09/04/ | Hospital | [facility] | Francois Pascal, | | | 2008 | Encounter | MED CTR LABORATORY | [address] | | | | | [address] [place] | [address], | | | | | [place] | [place] [address] | | | | | [address] | [phone] | | | | | [phone] | | | +--------+ + + + [...]
--- OUTSIDE RECORDS SUMMARY | ~2019-07-24 | XMS | Encounter Summary ---
Demographics + + + | Address | [address] | | | [place] [address] | + + + | Home Phone | | + + + | Preferred Language | Unknown | + + + | Marital Status | | + + + | Rastafari Affiliation | Unknown | + + + | Race | Unknown | + + + | Ethnic Group | Unknown | + + + Author + + + | Author | [facility] | | | and [place] | + + + | Organization | [facility] | | | and [...] | | | | | [place] [address] | | + + + + + | Valentín Saleh | ECON | [address] | | | | | [place] [address] | | + + + + + | Roberto Carlos Lennon | LEVI | Unknown | | + + + + + Care Team Providers + +------+ + | Care Industrial Ecology Technician Name | Role | Phone | [...] | [address] | [address], [place] | (MODERATE) (Primary | | | | [place], [place] | [address] [place], [place] | Dx); Vitamin D | | | | [address] | [address] | deficiency; | | | | [phone] | | HYPERTENSION NEC | +--------+ + [...] encounter Progress Notes Zaynab Humphries RN - 04/26/2013 2:36 PM PSTLabs for nephrology appt on 05/28/13 sent to [facility] documented in thi s encounter Plan of Treatment Not on filedocumented as of this encounter Results Vitamin D, [...] [address] | [place] | [phone] | | [facility] | | [address] | | | - LABORATORY | | | | + + + + + | [facility] | [address] | [place] | | | [facility] | | [address], [facility] | | | - LABORATORY | | | | + + + + + CBC with Differential (05/22/2013 10:26 AM PDT) + + + + + + | Component | Value | Ref Range | Performed | Pathologist | | | | | At | Signature | + + + + + + | WBC | 12.0 (H) | 4.0 - 11.0 K/uL | [facility] | | | | | | [facility] | | | | | | MEDICAL | | | | | | CENTER - | | | | | | LABORATORY | | + + + + + + | RBC | 3.82 | 3.70 - 5.20 | [...] + | [facility] | [address] | [place], [place] | [phone] | | [facility] | | [address] | | | - LABORATORY | | | | + + + + + | [facility] | [address] | [place], [place] | | | [facility] | | [id number] [place] [address] | | | - LABORATORY | | [...] (H) | 7 - 18 mg/dL | [facility] | | | | | | [facility] | | | | | | MEDICAL | | | | | | CENTER - | | | | | | LABORATORY | | + + + + + + | Creatinine | 1.07 | 0.60 - 1.30 | [facility] | | | | | mg/dL | [facility] | | | | | | MEDICAL | | | | | | CENTER - | | | | | | LABORATORY | | + + + + + + | eGFR if not | 49 (L)Comment: | >=60 | [facility] | | | | GLOMERULAR FILTRATION | mL/min/1.73m2 | [facility] | | | URUGUAYAN | RATE,ESTIMATED | | MEDICAL | | | | mL/min/1.92q8Stbw than | | CENTER - | | [...] | ine Ratio | | | [facility] | | | | | | [...] [address] | [place] | [phone] | | [facility] | | [address] | | | - LABORATORY | | | | + + + + + | [facility] | [address] | [place] | | | [facility] | | [address], [facility] | | | - LABORATORY | [...]
--- OUTSIDE RECORDS SUMMARY | ~2019-07-24 | XMS | Encounter Summary ---
Demographics + + + | Address | [address] | | | [place] [address] | + + + | Home Phone [...] + | Author | [facility] | | | and [place] | + + + | Organization | [facility] | | | and [place] | + + + | Address | Unknown | + + + | Phone | Unavailable | + + + Support + + + + + | Name | Relationship | Address | Phone | + + + + + | Sigrid Lennon | ECON | [address] | | | | | [place] [address] | | + + + + + | Valentín Saleh | ECON | [address] | | | | | [place] [address] | | + + + + + | Roberto Carlos Lennon | LEVI | Unknown | | + + + + + Care Team Providers + +------+ + | 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
--- OUTSIDE RECORDS SUMMARY | ~2019-07-24 | XMS | Encounter Summary ---
Demographics + + + | Address | [address] | | | [place] [address] | + + + | Home Phone [...] | Author | [facility] | | | and [place] | + + + | Organization | [facility] | | | and [place] | + + + | Address | Unknown | + + + | Phone | Unavailable | + + + Support + + + + + | Name | Relationship | Address | Phone | + + + + + | Sigrid Lennon | ECON | [address] | | | | | [place] [address] | | + + + + + | Valentín Saleh | ECON | [address] | | | | | [place] [address] | | + + + + + | Roberto Carlos Lennon | LEVI | Unknown | | + + + + + Care Team Providers + +------+ + | Care Post Acute Care Nurse Practitioner Name | Role | Phone | + +------+ + | Francois Pascal MD | PCP | | + +------+ + Encounter Details +--------+ + + + + | Date | Type | Department | Care Team | Description | +--------+ + + + + | 08/19/ | Orders Only | [facility] | Misael Haynes, | Type 2 diabetes | | 2017 | | LABORATORY SERVICE | MD [address] | mellitus with | | | | [address] | [place] | complication, with | | | | [place] | [address] | long-term current | | | | [address] | | use of insulin | | | | [phone] | | (HCC); CHRONIC | | | | | | KIDNEY DISEASE STAGE | | | | | | III (MODERATE); | | | | | | Urinary tract | | | | | | infection without | | | | | | hematuria, site | | | | | | unspecified | +--------+ + + + + Social [...] encounter Progress Notes Francois Pascal MD - 08/19/2016 12:05 PM PDTBactrim DS, one po bid x 5 days if not aller gic documented in thi s encounter Plan of Treatment Not on filedocumented as of this encounter Procedures + +--------+ + + + | Procedure Name | Priori | Date/Time | Associated Diagnosis | Comments | | | ty | | | | + +--------+ + + + | URINALYSIS WITH | Routin | 08/19/2016 | Urinary tract | Results for this | | MICROSCOPIC WITH | e | 2:29 PM | infection without | procedure are in the | | CULTURE IF INDICATED | | PDT | hematuria, site | results section. | | | | | unspecified | | + +--------+ + + + | HEMOGLOBIN A1C | Routin | 08/19/2016 | Type 2 diabetes | Results for this | | | e | 12:17 PM | mellitus with | procedure are in the | | | | PDT | complication, with | results section. | | | | | long-term current | | | | | | use of insulin (HCC) | | + +--------+ + + + | COMPREHENSIVE | Routin | 08/19/2016 | Type 2 diabetes | Results for this | | METABOLIC PANEL | e | 12:17 PM | mellitus with | procedure are in the | | | | PDT | complication, with | results section. | | | | | long-term current | | | | | | use of insulin (HCC) | | + +--------+ + + + documented in this encounter Results Urinalysis with Microscopic with [...] + + + + | Clarity | Jill (A) | Clear | [facility] | | [...] - 1.030 | [facility] | | | [place], | | | [facility] | | [...] [address] | [place] | [phone] | | [facility] | | [address] | | | - LABORATORY | | | | + + + + + Comprehensive Metabolic Panel (08/19/2016 12:17 PM PDT) + + + + + [...] + + + + | K | 4.4 | 3.5 - 5.1 | [facility] | | | | | mmol/L | [facility] | | | | | | MEDICAL | | | | | | CENTER - | | | | | | LABORATORY | | + + + + + + | Cl | 100 | 98 - 109 mmol/L | [facility] [...] + + + + | Glucose | 274 (H) | 70 - 109 mg/dL | [...] + + + + | Creatinine | 0.93 | 0.60 - 1.30 | [facility] | | | | | mg/dL | [facility] | | | | | | MEDICAL | | | | | | CENTER - | | | | | | LABORATORY | | + + + + + + | eGFR if not | 57 (L)Comment: | >=60 | [facility] | | | [place] | GLOMERULAR FILTRATION | mL/min/1.73m2 | [facility] | | | [place] | RATE,ESTIMATED | | MEDICAL | | | | mL/min/1.06m4Dsts than | | CENTER - | | [...] + + + + | Albumin | 3.4 | 3.2 - 5.0 g/dL | [facility] [...] Total | 6.6 | 6.0 - 7.8 g/dL | [facility] | | | Protein | | | [facility] | | | | | | MEDICAL | | | | | | CENTER - | | | | | | LABORATORY | | + + + + + + | AST | 26 | 10 - 42 U/L | [facility] | | | | | | [facility] | | | | | | MEDICAL | | | | | | CENTER - | | | | | | LABORATORY | | + + + + + + | ALT | 20 | 6 - 45 U/L | [facility] | | | | | | [facility] | | | | | | MEDICAL | | | | | | CENTER - | | | | | | LABORATORY | | + + + + + + | Alkaline | 82 | 40 - 110 U/L | [facility] | | | Phosphatase | | | [facility] | | | | | | MEDICAL | | | | | | CENTER - | | | | | | LABORATORY | | + + + + + + | Globulin | 3.2 | 2.1 - 3.8 g/dL | [facility] [...] | bulin Ratio | | | [facility] | | | | | | MEDICAL | | | | | | CENTER - | | | | | | LABORATORY | | + + + + + + | BUN/Creatin | 20.4 | | [facility] | | | ine [...] [address] | [place] | [phone] | | [facility] | | [address] | | | - LABORATORY | | | | + + + + + Hemoglobin A1C (08/19/2016 12:17 PM PDT) + +---------+ + + + [...] | Estimated | 177 | mg/dL | [facility] | | | [...] [address] | [place] | [phone] | | [facility] | | [address] | | | - LABORATORY | | | | + + + + + documented in this encounter Visit Diagnoses + + | Diagnosis | + + | Type 2 diabetes mellitus with complication, with long-term current use of insulin | | (HCC) | + + | CHRONIC KIDNEY DISEASE STAGE III (MODERATE) Chronic kidney disease, Stage III | | (moderate) | + + | Urinary tract infection without hematuria, site unspecified | + + documented in this encounter"
--- OUTSIDE RECORDS SUMMARY | ~2019-07-24 | XMS | Encounter Summary ---
Demographics + + + | Address | [address] | | | [place] [address] | + + + | Home Phone [...] | Author | [facility] | | | and [place] | + + + | Organization | [facility] | | [...] | | | | | [place] [address] | | + + + + + | Valentín Saleh | ECON | [address] | | | | | [place] [address] | | + + + + + | Roberto Carlos Lennon | LEVI | Unknown | | + + + + + Care Team Providers + +------+ + | Care Skein Straightener Name | Role | Phone | + [...] Refill | | 2019 | | [facility] | [address] | | | | | [address] | [address] [place], | | | | | [place] | [place] [address] | | | | | [address] | [phone] | | | | | [phone] | | | +--------+--------+ + + + [...]
--- OUTSIDE RECORDS SUMMARY | ~2019-07-24 | XMS | Encounter Summary ---
Demographics + + + | Address | [address] | | | [place] [address] | + + + | Home Phone [...] | Author | [facility] | | | and [place] | + + + | Organization | [facility] | | | and [place] | + + + | Address | Unknown | + + + | Phone | Unavailable | + + + Support + + + + + | Name | Relationship | Address | Phone | + + + + + | Sigrid Lennon | ECON | [address] | | | | | [place] [address] | | + + + + + | Valentín Saleh | ECON | [address] | | | | | [place] [address] | | + + + + + | Roberto Carlos Lennon | LEVI | Unknown | | + + + + + Care Team Providers + +------+ + | Care Supervisor Pairing And Inspecting Name | Role | Phone | + +------+ + | Francois Pascal MD | PCP | | + +------+ + Reason for Visit +---------+ + | Reason | Comments | +---------+ + | Results | | +---------+ + Encounter Details +--------+ + + + + | Date | Type | Department | Care Team | Description | +--------+ + + + + | 10/16/ | Telephone | [facility] | Francois Pascal, | Results | | 2019 | | [facility] [place] | [address] | | | | | [address] | [address], | | | | | [place] | [place] [address] | | | | | [address] | [phone] | | | | | [phone] | | | +--------+ + + + [...]
--- OUTSIDE RECORDS SUMMARY | ~2019-07-24 | XMS | Encounter Summary ---
Demographics + + + | Address | [address] | | | [place] [address] | + + + | Home Phone | | + + + | Preferred Language | Unknown | + + + | Marital Status | | + + + | Faith Affiliation | Unknown | + + + | Race | Unknown | + + + | Ethnic Group | Unknown | + + + Author + + + | Author | [facility] | | | and [place] | + + + | Organization | [facility] | | | and [...] | | | | | [place] [address] | | + + + + + | Valentín Saleh | ECON | [address] | | | | | [place] [address] | | + + + + + | Roberto Carlos Lennon | LEVI | Unknown | | + + + + + Care Team Providers + +------+ + | Care Home Health Billing Specialist Name | Role | Phone | [...] + + | 07/10/ | Anesthesia | [facility] | Vernon Ring | | | 2017 | Event | [facility] | Kunal LANCE MD [address] | | | | | [address] | [address] [facility] | | | | | [place] | [facility] [place] [address] | | | | | [address] | [phone] | | | | | [phone] | | | +--------+ + + + [...] +----+---+ + + | | 1 | [place] [address] | | | | 4 | [...] [address]54 by | | eral | Antecubital; [email or web address] | Sharon Vences RN | Brea Diop [...] Vernon Ring II, MD | | | David date/time: 07/10/2016 13:45 | | + + [...]
--- OUTSIDE RECORDS SUMMARY | ~2019-07-24 | XMS | Encounter Summary ---
Demographics + + + | Address | [address] | | | [place] [address] | + + + | Home Phone | | + + + | Preferred Language | Unknown | + + + | Marital Status | | + + + | Druze Affiliation | Unknown | + + + | Race | Unknown | + + + | Ethnic Group | Unknown | + + + Author + + + | Author | [facility] | | | and [place] | + + + | Organization | [facility] | [...] | | | | | [place] [address] | | + + + + + | Valentín Saleh | ECON | [address] | | | | | [place] [address] | | + + + + + | Roberto Carlos Lennon | LEVI | Unknown | | + + + + + Care Team Providers + +------+ + | Care Knocker Out Name | Role | Phone | + [...] Description | +--------+--------+ + + + | 08/21/ | Refill | [facility] [place] [facility] | Francois Pascal, | Medication Refill | | 2014 | | [facility] [place] | [address] | | | | | [address] | [address], | | | | | [place] | [place] [address] | | | | | [address] | [phone] | | | | | [phone] | | | +--------+--------+ + + + [...]
--- OUTSIDE RECORDS SUMMARY | ~2019-07-24 | XMS | Encounter Summary ---
Demographics + + + | Address | [address] | | | [place] [address] | + + + | Home Phone | | + + + | Preferred Language | Unknown | + + + | Marital Status | | + + + | Shinto Affiliation | Unknown | + + + | Race | Unknown | + + + | Ethnic Group | Unknown | + + + Author + + + | Author | [facility] | | | and [place] | + + + | Organization | [facility] | | | and [place] | + + + | Address | Unknown | + + + | Phone | Unavailable | + + + Support + + + + + | Name | Relationship | Address | Phone | + + + + + | Sigrid Lennon | ECON | [address] | | | | | [place] [address] | | + + + + + | Valentín Saleh | ECON | [address] | | | | | [place] [address] | | + + + + + | Roberto Carlos Lennon | LEVI | Unknown | | + + + + + Care Team Providers + +------+ + | Care Speeder Hand Name | Role | Phone | + +------+ + | No, Physician | PCP | Unavailable | + +------+ + Encounter Details +--------+ + + + + | Date | Type | Department | Care Team | Description | +--------+ + + + + | 04/06/ | Lab | [facility] | [place], | Chronic kidney | | 2018 | Requisition | MED CTR LAB[facility]ATORY | [address] | disease, stage III | | | | [address] | [address], [facility] | (moderate); 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 | | | | | penitentiary (current) | | | | | | drug therapy | | + +--------+ + + + | RENAL FUNCTION PANEL | Routin | 04/06/2017 | Chronic kidney | Results for this | | | e | 2:30 PM | disease, stage III | procedure are in the | | | | PST | (moderate) Other | results section. | | | | | penitentiary (current) | | | | | | [...] mL/min/1.73m2 | [facility] | | | [place] | | | MEDICAL | | | [...] [address] | [place] | [phone] | | [facility] | | [address] | | | - LABORATORY | | | | + + + + + CBC with Differential (04/06/2017 2:30 PM PST) + + + + + + | Component | Value | Ref Range | Performed | Pathologist | | | | | At | Signature | + + + + + + | WBC | 11.4 (H) | 4.0 - 11.0 K/uL | [facility] | | | | | | [facility] | | | | | | MEDICAL | | | | | | CENTER - | | | | | | LABORATORY | | + + + + + + | RBC | 3.71 | 3.70 - 5.20 | [facility] | | | | | M/uL | [facility] | | | | | [...] [address] | [place] | [phone] | | [facility] | | [address] | | | - LABORATORY | | | | + + + + + documented in this encounter Visit Diagnoses + + | Diagnosis | + + | Chronic kidney disease, stage III (moderate) (HCC) Chronic kidney disease, Stage III | | (moderate) | + + | 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
--- OUTSIDE RECORDS SUMMARY | ~2019-07-24 | XMS | Encounter Summary ---
Demographics + + + | Address | [address] | | | [place] [address] | + + + | Home Phone [...] | | | | | [place] [address] | | + + + + + | Valentín Saleh | ECON | [address] | | | | | [place] [address] | | + + + + + | Roberto Carlos Lennon | LEVI | Unknown | | + + + + + Care Team Providers + +------+ + | Care Supervisor Coke Handling Name | Role | Phone | + [...] + + | 06/17/ | Emergency | [facility] | Jose G Reich, | Contusion of head, | | 2015 | | MED CTR EM[facility]Y | [place] [address] | unspecified part of | | | | CENTER [address] | [place] | head, initial | | | | [place] | [address] | encounter (Primary | | | | [address] | | Dx) | | | | [phone] | | | +--------+ + + + [...] sent through Care Everywhere.HEAD INJURIES: FIRST AID (BURUNDIAN)documented in this encounter Medications at Time of [...] | | | | | | mellitus) ([facility]) | | | | | [...] | | otherwise shows normal morphology and friedman-white matter | | | differentiation, without evidence [...] The brain otherwise shows normal morphology and friedman-white matter | | differentiation, without evidence of [...]
--- OUTSIDE RECORDS SUMMARY | ~2019-07-24 | XMS | Encounter Summary ---
Demographics + + + | Address | [address] | | | [place] [address] | + + + | Home Phone [...] | Author | [facility] | | | and [place] | + + + | Organization | [facility] | | | and [...] | | | | | [place] [address] | | + + + + + | Valentín Saleh | ECON | [address] | | | | | [place] [address] | | + + + + + | Roberto Carlos Lennon | LEVI | Unknown | | + + + + + Care Team Providers + +------+ + | Care Longwall Shearer Operator Name | Role | Phone | + +------+ + | Francois Pascal MD | PCP | | + +------+ + Encounter Details +--------+ + + + + | Date | Type | Department | Care Team | Description | +--------+ + + + + | 10/13/ | Orders Only | [facility] [place] | [place], | Vitamin D deficiency | | 2018 | | NEPHROLOGY [address] | [address] | (Primary Dx) | | | | [address] | [address] [place] | | | | | [place], [place] | [address] | | | | | [address] | [address] | | | | | [phone] | | | +--------+ + + + [...] + | Diagnosis | + + | Vitamin D deficiency - Primary Unspecified vitamin D deficiency | + + documented in this encounter"
--- OUTSIDE RECORDS SUMMARY | ~2019-07-24 | XMS | Encounter Summary ---
Demographics + + + | Address | [address] | | | [place] [address] | + + + | Home Phone [...] | Author | [facility] | | | and [place] | + + + | Organization | [facility] | | | [...] | | | | | [place] [address] | | + + + + + | Valentín Saleh | ECON | [address] | | | | | [place] [address] | | + + + + + | Roberto Carlos Lennon | LEVI | Unknown | | + + + + + Care Team Providers + +------+ + | Care Metaphysics Teacher Name | Role | Phone | + +------+ + | Francois Pascal MD | PCP | | + +------+ + Encounter Details +--------+ + + + + | Date | Type | Department | Care Team | Description | +--------+ + + + + | 05/10/ | Orders Only | [facility] [place] | Jessica Saucedo, | | | 2012 | | CARDIOLOGY [address] | RN | | | | | [place], | | | | | | [place] [address] | | | | | | [phone] | | | +--------+ + + + [...]
--- OUTSIDE RECORDS SUMMARY | ~2019-07-24 | XMS | Encounter Summary ---
Demographics + + + | Address | [address] | | | [place] [address] | + + + | Home Phone [...] Author | [facility] | | | and Clarkeana | + + + | Organization | [facility] | | [...] | | | | | [place] [address] | | + + + + + | Valentín Saleh | ECON | [address] | | | | | [place] [address] | | + + + + + | Roberto Carlos Lennon | LEVI | [place] | | + + + + + Care Team Providers + +------+ + | Care Foreign Student Adviser Name | Role | Phone | + +------+ + PCP | Unavailable | + +------+ + Encounter Details +--------+ + + + + | Date | Type | Department | Care Team | Description | +--------+ + + + + | 12/17/ | Hospital | [facility] | Stephenie Paul, | | | 2010 | Encounter | MED CTR LABORATORY | [address] | | | | | [address] | [facility], | | | | | [place], [place] | [place] [address] | | | | | [address] | [phone] | | | | | [phone] | | | +--------+ + + + [...] + | LIPID PROFILE | Routin | 12/17/2010 | | Results for this | | | e | 8:18 AM | | procedure are in the | | | | PDT | | results section. | + +--------+ + + + | URIC ACID | Routin | 12/17/2010 | | Results for this | | | e | 8:18 AM | | procedure are in the | | | | PDT | | results section. | + +--------+ + + + | HEMOGLOBIN A1C | Routin | 12/17/2010 | | Results for this | | | e | 8:18 AM | | procedure are in the | | | | PDT | | results section. | + +--------+ + + + | HEPATIC FUNCTION | Routin | 12/17/2010 | | Results for this | | PANEL | e | 8:18 AM | | procedure are in the | | | | PDT | | results section. | + +--------+ + + + documented in this encounter Results Uric Acid (12/17/2010 8:18 AM PDT) + +---------+ + + + | Component | Value | Ref Range | Performed | Pathologist | | | | | At | Signature | + +---------+ + + + | Uric Acid | 7.4 (H) | 2.6 - 7.2 mg/dL | [facility] | | | | [...] + | [facility] | [address] | [place] | [phone] | | [facility] | | [address] | | | - LABORATORY | | | | + + + + + | [facility] | [address] | [place], [place] | | | [facility] | | [address] | | | - LABORATORY | | | | + + + + + Hemoglobin A1C (12/17/2010 8:18 AM PDT) + + + + + + | Component | Value | Ref Range | Performed | Pathologist | | | | | At | Signature | + + + + + + | Hemoglobin | 8.5 (H)Comment: | 4.3 - 5.8 % | [facility] | | | A1c | DIABETIC PATIENT RANGES: | | [facility] | | | | 6.2-7.0% = Well [...] [address] | [place] | [phone] | | [facility] | | [address] | | | - LABORATORY | | | | + + + + + | [facility] | [address] | [place] | | | [facility] | | [address], [facility] | | | - LABORATORY | | | | + + + + + Hepatic Function Panel (12/17/2010 8:18 AM PDT) + + + + + + | Component | Value | Ref Range | Performed | Pathologist | | | | | At | Signature | + + + + + + | Alkaline | 59 | 40 - 110 IU/L | [facility] | | | Phosphatase | | | [facility] | | | | | | MEDICAL | | | | | | CENTER - | | | | | | LABORATORY | | + + + + + + | AST | 44 (H) | 10 - 42 IU/L | [facility] | | | | | | [facility] | | | | | | MEDICAL | | | | | | CENTER - | | | | | | LABORATORY | | + + + + + + | ALT | 35 | 6 - 45 IU/L | [facility] | | | | | | [facility] | | | | | | MEDICAL | | | | | | CENTER - | | | | | | LABORATORY | | + + + + + + | Bilirubin | 0.9 | 0.2 - 1.0 mg/dL | [facility] | | | Total | | | [facility] | | | | | | MEDICAL | | | | | | CENTER - | | | | | | LABORATORY | | + + + + + + | Bilirubin | 0.2 | 0.0 - 0.2 mg/dL | [facility] | | | Direct | | | [facility] | | | | | | MEDICAL | | | | | | CENTER - | | | | | | LABORATORY | | + + + + + + | BILIRUBIN | 0.7Comment: DIRECT BILI | 0.00 - 1.00 | [facility] | | | INDIRECT | = CONJUGATED | mg/dL | [facility] | | | | INDIRECT BILI = | | MEDICAL | | | | UNCONJUGATED | | CENTER - | | | [...] Albumin | 3.7 | 3.2 - 5.0 gm/dL | [facility] [...] + | [facility] | [address] | [place], [place] | [phone] | | [facility] | | [address] | | | - LABORATORY | | | | + + + + + | [facility] | [address] | [place], [place] | | | [facility] | | [facility] | | | - LABORATORY | | | | + + + + + Lipid Profile (12/17/2010 8:18 AM PDT) + + + + + + | Component | Value | Ref Range | Performed | Pathologist | | | | | At | Signature | + + + + + + | Triglycerid | 194 (H) | 35 - 160 mg/dL | [facility] | | | es | | | [facility] | | | | | | MEDICAL | | | | | | CENTER - | | | | | | LABORATORY | | + + + + + + | Cholesterol | 130 (L) | 150 - 200 mg/dL | [facility] | | | | | | [facility] | | | | | | [facility]ICAL | | | | | | CENTER - | | | | | | LABORATORY | | + + + + + + | HDL | 40 | 29 - 89 mg/dL | [facility] | | | | | | [facility] | | | | | | MEDICAL | | | | | | CENTER - | | | | | | LABORATORY | | + + + + + + | LDL, | 51 | <130 mg/dL | [facility] | | | Calculated | | | [facility] | | | | | | MEDICAL | | | | | | CENTER - | | | | | | LABORATORY | | + + + + + + | Chol/HDL | 3.3Comment: | | [facility] | | | Ratio [...] ST. | [address] | [place] | [phone] | | [facility] | | [address] | | | - LABORATORY | | | | + + + + + | [facility] | [address] [facility] | [place] | | | [facility] | | [address] | | | - LABORATORY | | | | + + + + + documented in this encounter Visit Diagnoses Not on filedocumented in this encounter"
--- OUTSIDE RECORDS SUMMARY | ~2019-07-24 | XMS | Encounter Summary ---
Demographics + + + | Address | [address] | | | [place] [address] | + + + | Home Phone [...] Author | [facility] | | | and Clrakeana | + + + | Organization | [facility] | | | and [...] | | | | | [place] [address] | | + + + + + | Valentín Saleh | ECON | [phone] | | | | | [place] [address] | | + + + + + | Roberto Carlos Lennon | LEVI | [place] | | + + + + + Care Team Providers + +------+ + | Care Aeronautics Teacher Name | Role | Phone | + +------+ + PCP | Unavailable | + +------+ + Encounter Details +--------+ + + + + | Date | Type | Department | Care Team | Description | +--------+ + + + + | 07/30/ | Hospital | [facility] | | | | 2003 | Encounter | MED CTR MP INTRA OP | | | | | | [address] | | | | | | [place] | | | | | | [address] | | | | | | [phone] | | | +--------+ + + + [...]
--- OUTSIDE RECORDS SUMMARY | ~2019-07-24 | XMS | Encounter Summary ---
Demographics + + + | Address | [address] | | | [place] [address] | + + + | Home Phone [...] Author | [facility] | | | and Clarkeana | + + + | Organization | [facility] | | | and [place] | + + + | Address | Unknown | + + + | Phone | Unavailable | + + + Support + + + + + | Name | Relationship | Address | Phone | + + + + + | Sigrid Lennon | ECON | [address] | | | | | [place] [address] | | + + + + + | Valentín Saleh | ECON | [address] | | | | | [place] [address] | | + + + + + | Roberto Carlos Lennon | LEVI | Unknown | | + + + + + Care Team Providers + +------+ + | Care Fluid Pump Operator Name | Role | Phone [...] | | | | | [address] | [address] | | | | | [place] [address] | [place] [address] | | | | | [phone] | [phone] | | | | | | | [...] by | | | eral | Antecubital; [id number] | Maria Isabel Petersen RN | | [...]
--- OUTSIDE RECORDS SUMMARY | ~2019-07-24 | XMS | Encounter Summary ---
Demographics + + + | Address | [address] | | | [place] [address] | + + + | Home Phone [...] + + | Author | [facility] | | | and Clarkeana | + + + | Organization | [facility] | [...] | | | | | [place] [address] | | + + + + + | Valentín Saleh | ECON | [phone] | | | | | [place] [address] | | + + + + + | Roberto Carlos Lennon | LEVI | Unknown | | + + + + + Care Team Providers + +------+ + | Care Call Center Director Name | Role | Phone | [...] Closed | | Nurse | Diagnoses | Moraxelh, | | | | | Practitioner | Chronic | Francois Tello MD | [place], | | | | / Nephrology | kidney | [address] | [place], | | | | | disease, | [address] | PHARMACEUTICAL SALES REPRESENTATIVE [address] | | | | | stage III | [place] | [address], | | | | | (moderate) | [place], [place] | [address] | | | | | (HCC) | [address] | [place], | | | | | Unspecified | Phone: | [place] [address] | | | | | hypertensive | [phone] | Phone: | | | | | kidney | Fax: | [phone] | | | | | disease with | [phone] | Fax: | | | | | chronic | | [phone] | | | | | kidney | | | | | | | disease | | | | | | | stage I | | | | | | | through | | | | | | | stage IV, or | | | | | | | | | | | | | | unspecified( | | | | | | | 403.90) | | | | | | | Complication | | | | | | | s affecting | | | | | | | other | | | | | | | specified | | | | | | | body | | | | | | | systems, | | | | | | | hypertension | | | | | | | Procedures | | | | | | | [place] OFFICE | | | | | | | OUTPATIENT | | | | | | | VISIT 25 | | | | | | | MINUTES | | | +--------+--------+ + + + + Encounter Details +--------+---------+ + + + | Date | Type | Department | Care Team | Description | +--------+---------+ + + + | 12/06/ | Office | [facility] [place] | [place], | CHRONIC KIDNEY | | 2013 | Visit | NEPHROLOGY [address] | [address] | DISEASE STAGE III | | | | [address] | [address], [place] | (MODERATE) (Primary | | | | [place], [place] | [address] [place], [place] | Dx); HTN CKD UNS | | | | [address] | [address] | W/CKD STAGE I THRU | | | | [phone] | | STAGE IV/UNS; DM | | | | | | type 2, | | | | | [...] + + + | Blood Pressure | 114/54 | 12/06/2013 3:25 PM | | | | | PDT | | + + + + + | Pulse | 64 | 12/06/2013 3:25 PM | | | | | PDT [...] + + + + | Weight | 75.6 kg (166 lb 11.2 | 12/06/2013 3:25 PM | | | | oz) | PDT | | + + + + + | Height | 162.6 cm (5' 4") | 12/06/2013 3:25 PM | | | | | PDT | | + + + + + | Body Mass Index | 28.61 | 12/06/2013 3:25 PM | | | | | PDT | | + + + + + documented in this encounter Patient Instructions Patient Instructions Kemar Herndon ARNP - 12/06/2013 4:05 PM PDTPlease check blo od pressure at home 1-2 times a day for 2 weeks, then notify office. Continue to work with Dr. Pascal with the goal of tighter control of diabetes. Continue avoiding NSAIDs. These are some commonly used NSAIDs: ibuprofen (Motrin,Advil), na proxen (Aleve, Naprosyn), celecoxib (Celebrex), indomethacin (Indocin), meloxicam (Mobic). documented in this encounter Progress Notes Kemar Herndon ARNP - 12/06/2013 3:33 PM PDTFormatting of this note might be diff erent from the original. Nephrology Follow Up Visit Date: 12/06/2013 PCP: Dr. Francois Pascal HPI: Alyson Lennon is a 82 y.o. female following up for CKD. 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 Corado, hyperlipidemia, gout, glossitis, and vitamin D deficiency. Serum creatinine has fluctuated from 1.1-1.4 mg/dl in the past 3 years. Alyson is here for 6 month follow up. She denies complaints today. No recent illnesses or hosp italizations. Pt reports that she has not been checking blood pressure recently, blood sugar s have been high. She is going to diabetic education but feels confused by the information s he received. She just started acupuncture on her ankle. She had injury to that ankle 5 years ago and it is still painful. Patient Active Problem List Diagnosis Date Noted POA DM (diabetes mellitus) 12/27/2011 Unknown Priority: High Glossitis Unknown Priority: High Hyperlipidemia Unknown Priority: High [...] MELLITUS, TYPE II, CONTROLLED, WITH COMPLICATIONS Unknown CAD Unknown CONGESTIVE HEART FAILURE Unknown DEEP VENOUS THROMBOPHLEBITIS Unknown ARTHRITIS, CHRONIC 09/28/2011 Unknown AMI - ANTEROSEPTAL 1995 08/09/2011 Unknown VSD - 199408/09/2011 Unknown CLOSURE VENTRICULAR SEPTAL DEFECT - 199408/09/2011 Unknown FATIGUE 05/24/2011 Unknown VIRAL URI 05/24/2011 Unknown HYPERTRIGLYCERIDEMIA 12/24/2010 Unknown RENAL INSUFFICIENCY 01/21/2010 Unknown ECHO 03/04/09, LVEF 65% 03/04/2009 Unknown Past Medical History Diagnosis Date Hyperlipemia Vitamin D deficiency Gout Glossitis Hypertension 1979' DM type 2 (diabetes mellitus, type 2) ([facility]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 infarction ([facility]) (1994&1996) CAR with Hx of Myocardial infarction Other abnormal clinical finding Verebral Compression Fractures Glossitis CAD (coronary artery disease) CHF (congestive heart failure) ([facility]) Arthritis [place] (myocardial infarction) ([facility]) Carotid stenosis H/O ventricular septal defect repair DVT (deep vein thrombosis) in Chronic kidney disease, stage III (moderate) ([facility]) Vitamin D deficiency Gout Osteoporosis Past Surgical History Procedure Date Coronary artery bypass graft 1996 Grafting for Coronary Artery Bypass x 3 vessels and VSD Patch Cholecystectomy 1986 Left brest bi 1974 Previous inferior vena cava filter Ou cateract surgery 2006 Hiatal hernia repair 1984 Orif left ankle unstable trimalleolar fracture dislocation 03/24/2009 Breast surgery 1975 BIOPSY BRESAT, LEFT Outpatient Prescriptions Marked as Taking for the 12/06/13 encounter (Office Visit) with LAURO Kern Medication [...] mouth as needed fluocinonide (LIDEX) 0.05% cream folic acid 1 mg tablet TAKE ONE TABLET BY MOUTH EVERY DAY 90 tablet 1 furosemide (LASIX) 40 mg tablet TAKE ONE TABLET BY MOUTH EVERY DAY 90 tablet 3 JANUVIA 100 MG tablet TAKE ONE TABLET BY MOUTH EVERY DAY 90 tablet 1 LANTUS 100 UNIT/ML injection INJECT 110 UNITS AT BEDTIME 50 mL 6 lisinopril (PRINIVIL,ZESTRIL) 40 MG tablet TAKE ONE TABLET BY MOUTH EVERY DAY 90 table t 3 methotrexate 2.5 mg tablet 5 po once weekly 20 tablet 11 metoprolol (TOPROL-XL) 200 MG 24 hr tablet TAKE ONE TABLET BY MOUTH EVERY DAY 90 table t 3 multivitamin (THERAGRAN) per tablet Take 1 by mouth daily niacin (NIASPAN) 500 mg CR tablet TAKE ONE TABLET BY MOUTH EVERY DAY 30 tablet 6 NOVOLOG 100 UNIT/ML injection INJECT DIRECTED, 15 UNITS IN THE MORNING, 20 UNITS BEF ORE LUNCH AND 25 UNITS BEFORE DINNER. 20 mL 5 simvastatin (ZOCOR) 40 mg tablet TAKE ONE-HALF TABLET BY MOUTH EVERY DAY 135 tablet 1 Allergies Allergen Reactions Codeine Sulfate Nausea And Vomiting Darvon Nausea Only Estrogens Patient can't remember ROS: Edema in left ankle (Fractured 5 years ago). Denies anorexia, fatigue, chest pain, dys pnea, orthopnea, edema, nausea, vomiting, dysuria, hematuria, urinary frequency. Physical Exam: Filed Vitals: 12/06/13 1525 BP: 114/54 Pulse: 64 Height: 1.626 m (5' 4") Weight: 75.615 kg (166 lb 11.2 oz) Body mass index is 28.60 kg/(m^2). Constitutional: Pleasant, well-nourished female in no acute distress. Mouth/Throat: Oropharynx is clear and moist. Eyes: Pupils are equal, round, and reactive to light. Neck: Neck supple. No JVD present. Cardiovascular: S1, S2 with regular rate and rhythm. No murmur, gallops or rubs. Lungs: Effort normal and breath sounds normal. No crackles or wheezes. No respiratory distr ess. Abdominal: Soft. Bowel sounds are normal. No distension or tenderness. Musculoskeletal: 1+ edema left leg below knee, trace edema right leg, compression stockings in place. Neurological: Alert. Skin: Skin is warm. No rash. Psychiatric: Normal mood and affect. Labs reviewed with patient: Hospital Outpatient Visit on 12/04/2013 Component Date Value Range Status NA 12/04/2013 136 136-149 mmol/L Final K 12/04/2013 4.0 3.5-5.1 mmol/L Final CL 12/04/2013 101 98-109 mmol/L Final CO2 12/04/2013 26 24-31 mmol/L Final ANION GAP 12/04/2013 9 3-16 mmol/L Final GLUCOSE 12/04/2013 329* 70-109 mg/dL Final BUN 12/04/2013 35* 7-18 mg/dL Final Creatinine, Serum 12/04/2013 1.43* 0.60-1.30 mg/dL Final eGFR if not 12/04/2013 35* >=60 mL/min/1.73m2 Final GLOMERULAR FILTRATION RATE,ESTIMATED mL/min/1.73m2 Less than 60 Chronic kidney disease,if found over a 3-month period. Less than 15 Kidney failure For Americans,multiply the calculated GFR by 1.21. CALCIUM 12/04/2013 9.7 8.3-10.5 mg/dL Final ALBUMIN 12/04/2013 3.7 3.2-5.0 g/dL Final PHOSPHORUS 12/04/2013 4.4 2.5-4.6 mg/dL Final BUN/CREA 12/04/2013 24.5 Final PTH Intact 12/04/2013 21 12-88 pg/mL Final Microalbumin, Urine, Random 12/04/2013 1.4 <1.8 mg/dL Final Notice: New unit (mg/dl) and reference range as of May 12, 2013. Creatinine, Urine, Random 12/04/2013 103 Final Microalbumin/Creatinin ratio 12/04/2013 14 <30 mg/g Final Assessment/Plan: Problem # 1: CHRONIC KIDNEY DISEASE STAGE III (MODERATE) 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 No proteinuria o r microalbuminuria (on ACEI). Serum creatinine is higher than last visit but within baseline . Encouraged pt to work on diabetic control to help preserve renal function, as well as bo nued blood pressure control and avoidance of NSAIDs. Problem # 2: HTN CKD UNS W/CKD STAGE I THRU STAGE IV/UNS Blood pressure is well controlled, though lower the past two office visits then it was prev iously. I discussed goal blood pressure for good control without over control. Lisinopril is excellent for its renal protective effects, but if blood pressure is trending down, dose ma y need to be adjusted. -check home BP x 2 weeks then notify office -no change to regimen today Problem # 3: DIABETES MELLITUS, TYPE II, UNCONTROLLED, WITH COMPLICATIONS Hgb A1c above goal. Pt is following up with adaptive physical educator and I encouraged her to discu ss which parts are confusing to her. Continue following up closely with Dr. Pascal. Problem # 4: VITAMIN D DEFICIENCY Vitamin D level pending. PTH, calcium and phosphorus are fine. Follow up in 6 months, sooner if needed. Labs prior including renal panel, CBC, Hgb A1c. Patient verbalized agreement and understanding of above plan. CC:Dr. Francois Pascal documented i n this encounter Plan of [...] IV, or unspecified | + + | DM type 2, uncontrolled, with renal complications (HCC) Type II or unspecified type | | diabetes mellitus with renal manifestations, uncontrolled | + + | Vitamin D deficiency Unspecified vitamin D deficiency | + + documented in this encounter
--- OUTSIDE RECORDS SUMMARY | ~2019-07-24 | XMS | Encounter Summary ---
Demographics + + + | Address | [address] | | | [place] [address] | + + + | Home Phone [...] Author | [facility] | | | and Clarkeana | + + + | Organization | [facility] | [...] | | | | | [place] [address] | | + + + + + | Valentín Saleh | ECON | [address] | | | | | [place] [address] | | + + + + + | Roberto Carlos Lennon | LEVI | Unknown | | + + + + + Care Team Providers + +------+ + | Care Surgical Assistant Certified Name | Role | Phone | + +------+ + | Francois Pascal MD | PCP | | + +------+ + Encounter Details +--------+ + + + + | Date | Type | Department | Care Team | Description | +--------+ + + + + | 03/21/ | Hospital | [facility] | Francois Pascal, | HYPERTENSION NEC; | | 2015 | Encounter | MED CTR LAB[facility]ATORY | [address] | Hyperlipidemia; DM | | | | [address] | [address] [place], | (diabetes mellitus) | | | | [place] | [place] [address] | | | | | [address] | [phone] | | | | | [phone] | | | +--------+ + + + [...] + | URINALYSIS WITH | Routin | 03/21/2014 | HYPERTENSION NEC | Results for this | | MICROSCOPIC IF | e | 10:45 AM | | procedure are in the | | INDICATED | | PST | | results section. | + +--------+ + + + | CBC WITH | Routin | 03/21/2014 | HYPERTENSION NEC | Results for this | | DIFFERENTIAL | e | 10:38 AM | | procedure are in the | | | | PST | | results section. | + +--------+ + + + | LIPID PANEL | Routin | 03/21/2014 | Hyperlipidemia | Results for this | | | e | 10:29 AM | | procedure are in the | | | | PST | | results section. | + +--------+ + + + | HEMOGLOBIN A1C | Routin | 03/21/2014 | DM (diabetes | Results for this | | | e | 10:29 AM | mellitus) | procedure are in the | | | | PST | | results section. | + +--------+ + + + | COMPREHENSIVE | Routin | 03/21/2014 | HYPERTENSION NEC | Results for this | | METABOLIC PANEL | e | 10:29 AM | | procedure are in the [...] | Urine | | Yellow | [facility] | | | | [...] - 1.030 | [facility] | | | [place], | | | [facility] | | [...] + | [facility] | [address] | [place] | [phone] | | [facility] | | [address] | | | - LABORATORY | | | | + + + + + | [facility] | [address] | [place] | | | [facility] | | [address] | | | - LABORATORY | | | | + + + + + CBC with Differential (03/21/2014 10:38 AM PST) + + + + + + | Component | Value | Ref Range | Performed | Pathologist | | | | | At | Signature | + + + + + + | WBC | 12.2 (H) | 4.0 - 11.0 K/uL | [facility] | | | | | | [facility] | | | | | | MEDICAL | | | | | | CENTER - | | | | | | LABORATORY | | + + + + + + | RBC | 4.01 | 3.70 - 5.20 | [...] | | Monocytes | | K/uL | [facility] | [...] + | [facility] | [address] | [place], [place] | [phone] | | [facility] | | [address] | | | - LABORATORY | | | | + + + + + | [facility] | [address] | [place], [place] | | | [facility] | | [address], [facility] | | | [...] + | [facility] | [address] | [place] | [phone] | | [facility] | | [address] | | | - LABORATORY | | | | + + + + + | [facility] | [address] | [place], [place] | | | [facility] | | [address] | | | - LABORATORY [...] | | | Calculated | | | [facility] | | [...] [address] | [place] | [phone] | | [facility] | | [address] | | | - LABORATORY | | | | + + + + + | [facility] | [address] | [place] | | | [facility] | | [address], [facility] | | | [...] not | 45 (L)Comment: | >=60 | [facility] | | | | GLOMERULAR FILTRATION | mL/min/1.73m2 | [facility] | | | SERBIAN | RATE,ESTIMATED | | MEDICAL | | | | mL/min/1.73d7Sywk than | | CENTER - | | [...] | 9.9 | 8.3 - 10.5 | [facility] | | | | | mg/dL | [facility] | | | | [...] [address] | [place] | [phone] | | [facility] | | [address] | | | - LABORATORY | | | | + + + + + | [facility] | [address] | [place], [place] | | | [facility] | | [address], [facility] | | | [...]
--- OUTSIDE RECORDS SUMMARY | ~2019-07-24 | XMS | Encounter Summary ---
Demographics + + + | Address | [address] | | | [place] [address] | + + + | Home Phone | | + + + | Preferred Language | Unknown | + + + | Marital Status | | + + + | Roman Catholic Affiliation | Unknown | + + + | Race | Unknown | + + + | Ethnic Group | Unknown | + + + Author + + + | Author | [facility] | | | and [place] | + + + | Organization | [facility] | [...] | | | | | [place] [address] | | + + + + + | Valentín Saleh | ECON | [address] | | | | | [place] [address] | | + + + + + | Roberto Carlos Lennon | LEVI | [place] | | + + + + + Care Team Providers + +------+ + | Care Floral Designer Name | Role | Phone | + +------+ + PCP | Unavailable | + +------+ + Encounter Details +--------+ + + + + | Date | Type | Department | Care Team | Description | +--------+ + + + + | 02/03/ | Hospital | [facility] | | | | 2006 | Encounter | [facility] | | | | | | [address] | | | | | | [place] | | | | | | [address] | | | | | | [phone] | | | +--------+ + + + [...]
--- OUTSIDE RECORDS SUMMARY | ~2019-07-24 | XMS | Encounter Summary ---
Demographics + + + | Address | [address] | | | [place] [address] | + + + | Home Phone [...] | Author | [facility] | | | and [place] | + + + | Organization | [facility] | [...] | | | | | [place] [address] | | + + + + + | Valentín Saleh | ECON | [address] | | | | | [place] [address] | | + + + + + | Roberto Carlos Lennon | LVEI | Unknown | | + + + + + Care Team Providers + +------+ + | Care Manufacturing Industrial Engineer Name | Role | Phone | [...] Description | +--------+--------+ + + + | 12/11/ | Refill | [facility] | Francois Pascal, | Medication Refill | | 2014 | | MEDICINE [place] | [address] | | | | | [address] | [address], | | | | | [place] | [place] [address] | | | | | [address] | [phone] | | | | | [phone] | | | +--------+--------+ + + + [...]
--- OUTSIDE RECORDS SUMMARY | ~2019-07-24 | XMS | Encounter Summary ---
Demographics + + + | Address | [address] | | | [place] [address] | + + + | Home Phone [...] | Author | [facility] | | | and [place] | + + + | Organization | [facility] | | | and [...] | | | | | [place] [address] | | + + + + + | Valentín Saleh | ECON | [address] | | | | | [place] [address] | | + + + + + | Roberto Carlos Lennon | LEVI | Unknown | | + + + + + Care Team Providers + +------+ + | Care Manager Transmission Name | Role | Phone | + [...] + + | 05/31/ | Office | [facility] | Francois Pascal, | 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 Social History: Born in [facility] for 46 years. and Remarried [...]
--- OUTSIDE RECORDS SUMMARY | ~2019-07-24 | XMS | Encounter Summary ---
Demographics + + + | Address | [address] | | | [place] [address] | + + + | Home Phone | | + + + | Preferred Language | Unknown | + + + | Marital Status | | + + + | Hinduism Affiliation | Unknown | + + + | Race | Unknown | + + + | Ethnic Group | Unknown | + + + Author + + + | Author | [facility] | | | and [place] | + + + | Organization | [facility] | | | and [...] | | | | | [place] [address] | | + + + + + | Valentín Saleh | ECON | [address] | | | | | [place] [address] | | + + + + + | Roberto Carlos Lennon | LEVI | Unknown | | + + + + + Care Team Providers + +------+ + | Care Cartography Technician Name | Role | Phone | [...] Description | +--------+--------+ + + + | 05/10/ | Refill | [facility] | Francois Pascal, | Medication Refill | | 2012 | | MEDICINE [facility] | [address] | | | | | [facility] | [address], | | | | | [place] [address] | [place] [address] | | | | | [phone] | [phone] | | | | | | | [...]
--- OUTSIDE RECORDS SUMMARY | ~2019-07-24 | XMS | Encounter Summary ---
Demographics + + + | Address | [address] | | | [place] [address] | + + + | Home Phone | | + + + | Preferred Language | Unknown | + + + | Marital Status | | + + + | Restorationism Affiliation | Unknown | + + + | Race | Unknown | + + + | Ethnic Group | Unknown | + + + Author + + + | Author | [facility] | | | and [place] | + + + | Organization | [facility] | | [...] | | | | | [place] [address] | | + + + + + | Valentín Saleh | ECON | [address] | | | | | [place] [address] | | + + + + + | Roberto Carlos Lennon | LEVI | [place] | | + + + + + Care Team Providers + +------+ + | Care Clinical Services Consultant Name | Role | Phone | + +------+ + PCP | Unavailable | + +------+ + Encounter Details +--------+ + + + + | Date | Type | Department | Care Team | Description | +--------+ + + + + | 06/17/ | Hospital | [facility] | RiderMauricio villarreal | | | 2009 | Encounter | MED CTR XRAY [address] | [place], [address] [facility] [facility] | | | | | [place] | [place] | | | | | [place] [address] | [id number] | | | | | [phone] | | | +--------+ + + + [...]
--- OUTSIDE RECORDS SUMMARY | ~2019-07-24 | XMS | Encounter Summary ---
Demographics + + + | Address | [address] | | | [place] [address] | + + + | Home Phone | | + + + | Preferred Language | Unknown | + + + | Marital Status | | + + + | Hoahaoism Affiliation | Unknown | + + + | Race | Unknown | + + + | Ethnic Group | Unknown | + + + Author + + + | Author | [facility] | | | and [place] | + + + | Organization | [facility] | | | [...] | | | | | [place] [address] | | + + + + + | Valentín Saleh | ECON | [address] | | | | | [place] [address] | | + + + + + | Roberto Carlos Lennon | LEVI | Unknown | | + + + + + Care Team Providers + +------+ + | Care Firestop/Containment Worker Name | Role | Phone | [...] | Francois Tello MD | [address] | | | | | stenosis, | [address] | [place], | | | | | bilateral | [address] | [place] | | | | | Procedures | [place] | [address] | | | | | MRI | [place] | Phone: | | | | | Angiogram | [address] | [phone] | | | | | Neck w wo | Phone: | Fax: | | | | | Contrast | [phone] | [phone] | | | | | | Fax: | | | | | | | [phone] | | +--------+--------+ + + + + Encounter Details +--------+ + + + + | Date | Type | Department | Care Team | Description | +--------+ + + + + | 11/26/ | Orders Only | [facility] [place] [facility] | Francois Pascal, | Carotid stenosis, | | 2015 | | MEDICINE [address] | [address] | bilateral (Primary | | | | Street [place] | [address] [place] [address], | Dx) | | | | [place] [address] | [place] [address] | | | | | [phone] | [phone] | | | | | | | [...] on filedocumented as of this encounter Results MRI Angiogram Neck w wo Contrast (12/05/2014 9:37 AM PDT) + + | Specimen | + + | | + + + + + | Narrative | Performed At | + + + | MRI ANGIOGRAM NECK W WO CONTRAST 12/05/2014 9:11 AM HISTORY: | [facility] | | Carotid stenosis. COMPARISON: None. PROTOCOL: MRA of the neck | [facility] | | was performed with axial 3-D hboy-yk-mmxufy technique without | [facility] | | [...] | | | on the axial 3-D dhdb-tf-sqgzix images due to the small size. The [...] | | was performed with axial 3-D osod-jf-adyjqw techniquewithout contrast and coronal | | dynamic [...] seen on the axial 3-D | | wseh-wp-rsyfgwxvqsni due to the small size. The left [...] not well seen on the axial 3-D jxnk-pv-ngpgev | |images due to the small size. [...] ST. | [address] | [place] | [phone] | | [facility] | | [address] | | | - IMAGING | | | | + + + + + documented in this encounter Visit Diagnoses + + | Diagnosis | + + | Carotid stenosis, bilateral - Primary Occlusion and stenosis of multiple and | | bilateral precerebral arteries without mention of cerebral infarction | + + documented in this encounter"
--- OUTSIDE RECORDS SUMMARY | ~2019-07-24 | XMS | Encounter Summary ---
Demographics + + + | Address | [address] | | | [place] [address] | + + + | Home Phone | | + + + | Preferred Language | Unknown | + + + | Marital Status | | + + + | Orthodox Affiliation | Unknown | + + + | Race | Unknown | + + + | Ethnic Group | Unknown | + + + Author + + + | Author | [facility] | | | and [place] | + + + | Organization | [facility] | [...] | | | | | [place] [address] | | + + + + + | Valentín Saleh | ECON | [address] | | | | | [place] [address] | | + + + + + | Roberto Carlos Lennon | LEVI | Unknown | | + + + + + Care Team Providers + +------+ + | Care Cable Installation Technician Name | Role | Phone | + +------+ + | Francois Pascal MD | PCP | | + +------+ + Reason for Visit + + + | Reason | Comments | + + + | SNF Admission | | + + + Encounter Details +--------+ + + + + | Date | Type | Department | Care Team | Description | +--------+ + + + + | 10/19/ | Telephone | [facility] | Francois Pascal, | SNF Admission | | 2019 | | MEDICINE [facility] | [address] | | | | | [address] | [address], | | | | | [place] | [place] [address] | | | | | [address] | [phone] | | | | | [phone] | | | +--------+ + + + [...]
--- OUTSIDE RECORDS SUMMARY | ~2019-07-24 | XMS | Encounter Summary ---
Demographics + + + | Address | [address] | | | [place] [address] | + + + | Home Phone [...] Author | [facility] | | | and [place] | + + + | Organization | [facility] | | [...] | | | | | [place] [address] | | + + + + + | Valentín Saleh | ECON | [address] | | | | | [place] [address] | | + + + + + | Roberto Carlos Lennon | LEVI | Unknown | | + + + + + Care Team Providers + +------+ + | Care Senior Net Architect Name | Role | Phone | + [...] Description | +--------+---------+ + + + | 07/19/ | Office | [facility] | Francois Pascal, | CHRONIC KIDNEY | | 2017 | Visit | [address] | [address] | DISEASE STAGE III | | | | Street [place] | [address], | (MODERATE) (Primary | | | | [place] [address] | [place] [address] | Dx); Stomatitis; | | | | [phone] | [phone] | Reactive depression | | | | | | | [...] + + + | Blood Pressure | 130/80 | 07/19/2016 9:42 AM | | | | | PDT | | + + + + + | Pulse | 70 | 07/19/2016 9:42 AM | | | | | PDT | | + + + + + | Temperature | 36.1 C (96.9 F) | 07/19/2016 9:42 AM | | | | | PDT | | + + + + + | Respiratory Rate | 16 | 07/19/2016 9:42 AM | | | | | PDT | | + + + + + | Oxygen Saturation | 96% | 07/19/2016 9:42 AM | | | | | PDT | | + + + + + | Inhaled Oxygen | - | - | | | Concentration | | | | + + + + + | Weight | 72.1 kg (159 lb) | 07/19/2016 9:42 AM | | | | | PDT | | + + + + + | Height | 167.6 cm (5' 6") | 07/19/2016 9:42 AM | | | | | PDT | | + + + + + | Body Mass Index | 25.66 | 07/19/2016 9:42 AM | | | | | [...] encounter Progress Notes Francois Pascal MD - 07/19/2016 9:52 AM PDTFormatting of this note might be [...] any p ain. Tongue is now sore because she is not on her medication. They have started PT. She is sleeping and eating ok but her appetite is poor. She is feeling down and frustrated because of all of her health problems. She broke her l eft ankle 6 years ago and was planning to get ankle replacement. She is not sure but she mi ght be depressed. She is frustrated with her today for not being at the doctors appointment. CKD, this is worsened post op, She is trying to drink plenty of fluid. 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 Hx of Myocardial infarction (1994&1996) Hypertension x Hyperlipidemia Vitamin D Deficiency Gout Osteoporosis Verebral Compression Fractures Glossitis Past Surgical History: 1996 Grafting for Coronary Artery Bypass x 3 vessels and VSD Patch Cholecystectomy 1987 Previous Inferior Vena Cava Filter OU Cateract Surgery 2006 Hiatal Hernia Repair 1984 (L) Breast Biopsy 1974 ORIF Left Ankle Unstable Trimalleolar Fracture Dislocation 03/24/2009 Family History: Mother 71 Myocardial Infarction, possible VSD Father 50 Pneumonia Family Hx of Corrigan's chorea Sister and 2 brothers: CAD, Corrigan's Disease to [place] - with 2 Healthy Children No kidney disease in family. Social History: Born in [facility] for 46 years. and Remarried [...] for suicidal ideas,no confusion and no agitation. Some depression, no anxiety,no sleep problems Objective: Physical Exam Heent, WNL, No carotid bruit Chest CTAB Heart RR&R /s M Abd S,NT,ND,BS+ Ext, no CCor E Neuro Non-focal Lymph, no cervical, axillary, inguinal adenopathy Musculoskeletal, no gross deformity or loss or range of motion Skin, no gross lesions Assessment: 1. CHRONIC KIDNEY DISEASE STAGE III (MODERATE) 2. Stomatitis 3. Reactive depression Plan: We can restart the MTX in a months. lexapro trial today. I will discuss her pending an kle replacement with Dr Ochoa. RTC 2 weeks. documented in this encounter Plan of Treatment Not on filedocumented as of this encounter Visit Diagnoses + + | Diagnosis | + + | CHRONIC KIDNEY DISEASE STAGE III (MODERATE) - Primary Chronic kidney disease, Stage | | III (moderate) | + + | Stomatitis Stomatitis and mucositis, unspecified | + + | Reactive depression Dysthymic disorder | + + documented in this encounter
--- OUTSIDE RECORDS SUMMARY | ~2019-07-24 | XMS | Encounter Summary ---
Demographics + + + | Address | [address] | | | [place] [address] | + + + | Home Phone [...] | Author | [facility] | | | and [place] | + + + | Organization | [facility] | | | and [place] | + + + | Address | Unknown | + + + | Phone | Unavailable | + + + Support + + + + + | Name | Relationship | Address | Phone | + + + + + | Sigrid Lennon | ECON | [address] | | | | | [place] [address] | | + + + + + | Valentín Saleh | ECON | [address] | | | | | [place] [address] | | + + + + + | Roberto Carlos Lennon | LEVI | Unknown | | + + + + + Care Team Providers + +------+ + | Care Needle Leader Name | Role | Phone | + +------+ + | Francois Pascal MD | PCP | | + +------+ + Reason for Visit + + + | Reason | Comments | + + + | Leg Swelling | left leg | + + + Encounter Details +--------+---------+ + + + | Date | Type | Department | Care Team | Description | +--------+---------+ + + + | 11/16/ | Office | [facility] | Francois Pascal, | Cellulitis and | | 2018 | Visit | MEDICINE [place] | [address] | abscess of foot | | | | [address] | [address], | (Primary Dx); Leg | | | | [place] | [place] [address] | edema, left | | | | [address] | [phone] | | | | | [phone] | | | +--------+---------+ + + + [...] + + + | Blood Pressure | 114/60 | 11/16/2017 10:35 AM | | | | | PDT | | + + + + + | Pulse | 60 | 11/16/2017 10:35 AM | | | | | PDT | | + + + + + | Temperature | 36.3 C (97.4 F) | 11/16/2017 10:35 AM | | | | | PDT | | + + + + + | Respiratory Rate | - | - | | + + + + + | Oxygen Saturation | 95% | 11/16/2017 10:35 AM | | | | | PDT [...] encounter Progress Notes Francois Pascal MD - 11/16/2017 10:30 AM PDTFormatting of this note might be different f rom the original. Subjective: Patient ID: Alyson Lennon is a 86 y.o. female. HPI CAD, Afib on xarelto, Followed by Cardiology, No recent CP or SOB. There is Bilateral l eg swelling has been going on for a year or so but worse in the last few weeks. Diabetes, She is on the lantus and novolog. She has no complaint of foot sore, There is no complaint of P, P or P. Past Medical History: Type 2 DM with [...] VSD Father 50 Pneumonia Family Hx of Sebe[place]'s chorea Sister and 2 brothers: CAD, [place]'s Disease to [place] - with 2 Healthy Children No kidney disease in family. Social History: Born in [facility] for 46 years. and Remarried 2 sons local. Patient has never smoked. Alcohol Use - no Exercise: None Caffeine: Decaf only Living Situation: Lives with spouse Review of Systems Objective: BP 114/60 | Pulse 60 | Temp 36.3 C (97.4 F) (Temporal) | SpO2 95% Physical Exam Heart irreg /c M Ext's With 2 plus edema on the left 1 plus on the right, There is some rubor on the top o f the right foot. Assessment: 1. Cellulitis and abscess of foot cephalexin (KEFLEX) 500 MG TABS 2. Leg edema, left VAS Lower Extremity Venous Left Plan: Will R/o left leg for DVT. Keflex trial, RTC 1 weeks. I also informed her gerber t she needs to see a dentist. Dr Nabor Law. She may have an early cellulitis but more likely venous stasis. 7 day lasix trial. documented in this encounter Plan of Treatment Not on filedocumented as of this encounter Results VAS Lower Extremity Venous [...] ordering provider, by the | | | lime kiln tender, immediately following the exam. Dictated and | [...] to the ordering provider, by the | |lime kiln tender, immediately following the exam. | | | [...] + | Diagnosis | + + | Cellulitis and abscess of foot - Primary Cellulitis and abscess of foot, except toes | + + | Leg edema, left Edema | + + documented in this encounter"
--- OUTSIDE RECORDS SUMMARY | ~2019-07-24 | XMS | Encounter Summary ---
Demographics + + + | Address | [address] | | | [place] [address] | + + + | Home Phone [...] Author | [facility] | | | and [place] | + + + | Organization | [facility] | [...] | | | | | [place] [address] | | + + + + + | Valentín Saleh | ECON | [address] | | | | | [place] [address] | | + + + + + | Roberto Carlos Lennon | LEVI | [place] | | + + + + + Care Team Providers + +------+ + | Care Manager Pet Name | Role | Phone | + +------+ + PCP | Unavailable | + +------+ + Encounter Details +--------+ + + + + | Date | Type | Department | Care Team | Description | +--------+ + + + + | 02/19/ | Hospital | [facility] | Francois Pascal, | | | 2007 | Encounter | MED CTR XRAY [address] | [address] | | | | | [place] | [address] [place], | | | | | [place] [address] | [place] [address] | | | | | [phone] | [phone] | | | | | | | [...]
--- OUTSIDE RECORDS SUMMARY | ~2019-07-24 | XMS | Encounter Summary ---
Demographics + + + | Address | [address] | | | [place] [address] | + + + | Home Phone [...] + + | Author | [facility] | | | and [place] | + + + | Organization | [facility] | | | and [place] | + + + | Address | Unknown | + + + | Phone | Unavailable | + + + Support + + + + + | Name | Relationship | Address | Phone | + + + + + | Sirgid Lennon | ECON | [address] | | | | | [place] [address] | | + + + + + | Valentín Saleh | ECON | [address] | | | | | [place] [address] | | + + + + + | Roberto Carlos Lennon | LEVI | Unknown | | + + + + + Care Team Providers + +------+ + | Care Tank Truck Operator Name | Role | Phone | [...] Description | +--------+--------+ + + + | 12/27/ | Refill | [facility] | Stephenie Paul, | Medication Refill | | 2012 | | CARDIOLOGY [address] | MD [address] | | | | | [place], | [place], | | | | | [place] [address] | [place] [address] | | | | | [phone] | [phone] | | | | | | | [...]
--- OUTSIDE RECORDS SUMMARY | ~2019-07-24 | XMS | Encounter Summary ---
Demographics + + + | Address | [address] | | | [place] [address] | + + + | Home Phone | | + + + | Preferred Language | Unknown | + + + | Marital Status | | + + + | Mosque Affiliation | Unknown | + + + | Race | Unknown | + + + | Ethnic Group | Unknown | + + + Author + + + | Author | [facility] | | | and [place] | + + + | Organization | [facility] | | | | | [place] [address] | | + + + + + | Valentín Saleh | ECON | [address] | | | | | [place] [address] | | + + + + + | Roberto Carlos Lennon | LEVI | Unknown | | + + + + + Care Team Providers + +------+ + | Care Android Ui Developer Name | Role | Phone | + [...] Description | +--------+--------+ + + + | 12/22/ | Refill | [facility] | Francois Pascal, | Medication Refill | | 2012 | | MEDICINE [place] | [address] | | | | | [address] | [address], | | | | | [place] | [place] [address] | | | | | [address] | [phone] | | | | | [phone] | | | +--------+--------+ + + + [...]
--- OUTSIDE RECORDS SUMMARY | ~2019-07-24 | XMS | Encounter Summary ---
Demographics + + + | Address | [address] | | | [place] [address] | + + + | Home Phone [...] + | Author | [facility] | | | and [place] | + + + | Organization | [facility] | | | and [place] | + + + | Address | Unknown | + + + | Phone | Unavailable | + + + Support + + + + + | Name | Relationship | Address | Phone | + + + + + | Sigrid Lennon | ECON | [address] | | | | | [place] [address] | | + + + + + | Valentín Saleh | ECON | [address] | | | | | [place] [address] | | + + + + + | Roberto Carlos Lennon | LEVI | Unknown | | + + + + + Care Team Providers + +------+ + | Care Managing Attorney Name | Role | Phone | + +------+ + | Francois Pascal MD | PCP | | + +------+ + Encounter Details +--------+ + + + + | Date | Type | Department | Care Team | Description | +--------+ + + + + | 04/01/ | Hospital | [facility] | [place], | CHRONIC KIDNEY | | 2017 | Encounter | MED CTR LABORATORY | [address] | DISEASE STAGE III | | | | [address] | [address] [facility] | (MODERATE) | | | | [place] | [address] | | | | | [address] | [address] | | | | | [phone] | | | +--------+ + + + [...] | | 0 | | | | Wdejpys-Clzztegef-Uh | mouth Daily. | | | | [...] TABLET BY | 90 | 3 | 01/27/20 | | | 40 mg tablet | MOUTH EVERY DAY | tablet | | 16 | 7 | + + + +---------+ + + [...] TABLETS BY | 20 | 2 | 02/06/20 | | | mg | MOUTH ONCE WEEKLY | tablet | | 16 | 7 | | tabletIndications: | Indications: | | [...] + + + +---------+ + + | SITagliptin | TAKE ONE TABLET BY | 90 | 1 | 03/29/19 | | | (JANUVIA) 100 mg | MOUTH EVERY DAY | tablet | | 17 | 7 | | tabletIndications: | | | | | | | Type 2 diabetes | | | | | | | mellitus with | | | | | | | hyperglycemia, [...] + + | PROTEIN/CREATININE | Routin | 04/01/2016 | CHRONIC KIDNEY | Results for this | | RATIO, URINE | e | 12:50 PM | DISEASE STAGE III | procedure are in the | | | | PST | (MODERATE) | results section. | + +--------+ + + + | PARATHYROID HORMONE, | Routin | 04/01/2016 | CHRONIC KIDNEY | Results for this | | INTACT | e | 10:00 AM | DISEASE STAGE III | procedure are in the | | | | PST | (MODERATE) | results section. | + +--------+ + + + | RENAL FUNCTION PANEL | Routin | 04/01/2016 | CHRONIC KIDNEY | Results for this | | | e | 10:00 AM | DISEASE STAGE III | procedure are in the | | | | PST | (MODERATE) | results section. | + +--------+ + + + documented in this encounter Results Protein/Creatinine Ratio, Urine (04/01/2016 [...] [address] | [place] | [phone] | | [facility] | | [address] | | | - LABORATORY | | | | + + + + + Parathyroid Hormone, Intact (04/01/2016 10:00 AM PST) + +-------+ + + + | Component | Value | Ref Range | Performed | Pathologist | | | | | At | Signature | + +-------+ + + + | PTH Intact | 27 | 12 - 88 pg/mL | [facility] [...] + | [facility] | [address] | [place] | [phone] | | [facility] | | [address] | | | - LABORATORY | | [...] mL/min/1.73m2 | [facility] | | | [place] | | | MEDICAL | | | [...] ST. | [address] | [place], [place] | [phone] | | [facility] | | [address] | | | - LABORATORY | | | | + + + + + documented in this encounter Visit Diagnoses + + | Diagnosis | + + | CHRONIC KIDNEY DISEASE STAGE III (MODERATE) Chronic kidney disease, Stage III | | (moderate) | + + documented in this encounter"
--- OUTSIDE RECORDS SUMMARY | ~2019-07-24 | XMS | Encounter Summary ---
Demographics + + + | Address | [address] | | | [place] [address] | + + + | Home Phone | | + + + | Preferred Language | Unknown | + + + | Marital Status | Single | + + + | Muslim Affiliation | UNK | + + + [...] | | | | | [place] [address] | | + + + + + | None None | ECON | Unknown | Unavailable | + + + + + Care Team Providers + +------+ + | Care Water Purifier Name | Role | Phone | + [...] as of this encounter Progress Notes Interface, Snow Removal/Plowing In - 01/07/2005 5:03 AM PST [id number] 01/05/2005 01/05/2005 [id number] RADHA Sheridan [address] [place] [address] or January 05, 2005 Frank Bolton MD [address] [place] [id number] RE: ALYSON LENNON MR #: [id number] Dear Quique, I did have the opportunity to meet and evaluate Alyson Lennon in the Otolaryngology Clinic at [facility] today. As you know, Mrs. Lennon is [...] has been suggested to her by her zipper setter chainstitch. She has also been tried on a [...] a nondrinker. She is , lives in [place]. Her ECOG performance status is 1. On [...] to her progress. Sincerely, Fabio Blankenship M.D. [facility] / ALICIA [id number] / [id number] / [id number] / documented i n this encounter Plan of Treatment Not on filedocumented as of this encounter Visit Diagnoses Not on filedocumented in this encounter"
--- OUTSIDE RECORDS SUMMARY | ~2019-07-24 | XMS | Encounter Summary ---
Demographics + + + | Address | [address] | | | [place] [address] | + + + | Home Phone [...] | Author | [facility] | | | and [place] | + + + | Organization | [facility] | | | and [place] | + + + | Address | Unknown | + + + | Phone | Unavailable | + + + Support + + + + + | Name | Relationship | Address | Phone | + + + + + | Sigrid Lennon | ECON | [address] | | | | | [place] [address] | | + + + + + | Valentín Saleh | ECON | [address] | | | | | [place] [address] | | + + + + + | Roberto Carlos Lennon | LEVI | Unknown | | + + + + + Care Team Providers + +------+ + | Care Stylist Apprentice Name | Role | Phone | + [...] | Physical | Diagnoses | Morasch, | [facility] | | | Services | Therapy | | Francois Tello MD | PHYSICAL | | | Required | | Post-traumat | [address] | THERAPY - | | | | | ic | [address] | [place] | | | | | osteoarthrit | [place] | [facility] | | | | | is of left | [place] | [address] | | | | | ankle | [address] | ST | | | | | | Phone: | ANTOINE | | | | | | [phone] | [place], [place] | | | | | | Fax: | [address] | | | | | | [phone] | Phone: | | | | | | | [phone] | | | | | | | Fax: | | | | | | | [phone] | +--------+ + + + + + Reason for Visit + + + | Reason | Comments | + + + | Diabetes | | + + + | Hypertension | | + + + Encounter Details +--------+---------+ + + + | Date | Type | Department | Care Team | Description | +--------+---------+ + + + | 03/21/ | Office | [facility] | Francois Pascal, | Post-traumatic | | 2015 | Visit | MEDICINE [address] | [address] | osteoarthritis of | | | | [address] [place] | [address] [place], | left ankle (Primary | | | | [place] [address] | [place] [address] | Dx); HYPERTENSION | | | | [phone] | [phone] | NEC; Hyperlipidemia; | | | | | | Glossitis; Type 2 | | | | | | diabetes mellitus | | | | | | with hyperglycemia | | | | | | (HCC); [...] + + + | Blood Pressure | 130/66 | 03/21/2014 10:00 AM | | | | | PST | | + + + + + | Pulse | 61 | 03/21/2014 10:00 AM | | | | | PST | | + + + + + | Temperature | 36.6 C (97.8 F) | 03/21/2014 10:00 AM | | | | | PST | | + + + + + | Respiratory Rate | 16 | 03/21/2014 10:00 AM | | | | | PST | | + + + + + | Oxygen Saturation | 97% | 03/21/2014 10:00 AM | | | | | PST | | + + + + + | Inhaled Oxygen | - | - | | | Concentration | | | | + + + + + | Weight | 72.4 kg (159 lb 11.2 | 03/21/2014 10:00 AM | | | | oz) | PST | | + + + + + | Height | 162.6 cm (5' 4") | 03/21/2014 10:00 AM | | | | | PST | | + + + + + | Body Mass Index | 27.41 | 03/21/2014 10:00 AM | | | | | PST | | + + + + + documented in this encounter Progress Notes Francois Pascal MD - 03/21/2014 10:39 AM PSTFormatting of this note might be different f rom the original. Subjective: Patient ID: Alyson Lennon is a 83 y.o. female. HPI Left ankle OA, post fracture years ago. She would like see [facility]. He a nkle still hurts. She is not doing any water aerobics for exercize. DM2 she is on lantus 120 nightly, [...] still feeling slightly sore though. She declines otm consultant. Carmelo blunt follows with Dr Bolton for [...] VSD Father 50 Pneumonia Family Hx of [place]'s chorea Sister and 2 brothers: CAD, Airam's Disease to Sigrid - with 2 Healthy Children No kidney disease in family. Social History: Reviewed history from 08/11/2011 and no changes required: Born in [facility] for 46 years. and Remarried [...] motion Skin, no gross lesions Assessment: 1. Post-traumatic osteoarthritis of left ankle 2. HYPERTENSION NEC 3. Hyperlipidemia 4. Glossitis 5. Type 2 diabetes mellitus with hyperglycemia (HCC) 6. CHRONIC KIDNEY DISEASE STAGE III (MODERATE) Plan: Her A1C is elevated. Consider increasing novolog if todays labs come back Elevated. Othe rwise continue current medical regimen. Refer to PT. documented in this encounter Plan of Treatment + + +--------+ + + | Name | Type | Priori | Associated Diagnoses | Order Schedule | | | | ty | | | + + +--------+ + + | Ambulatory referral | Outpatient | Routin | Post-traumatic | Ordered: 03/21/2014 | | to Physical Therapy | Referral | e | osteoarthritis of | | | | | | left ankle | | + + +--------+ + + [...] - 1.030 | [facility] | | | [place], | | | [facility] | | [...] Urine | | 1.0 E.U./dL | [facility] | | | | [...] [address] | [place] | [phone] | | [facility] | | [address] | | | - LABORATORY | | | | + + + + + Hemoglobin A1C (09/10/2014 2:09 PM PDT) + +---------+ + + + | Component | Value | Ref Range | Performed | Pathologist | | | | | At | Signature | + +---------+ + + + | Hemoglobin | 8.3 (H) | 4.3 - 6.0 % | [facility] | | | A1c | | | [facility] | | [facility] | | | MEDICAL | | | | | | CENTER - | | | | | | LABORATORY | | + +---------+ + + + | Estimated | 192 | mg/dL | [facility] | | | [...] + | [facility] | [address] | [place], [place] | [phone] | | [facility] | | [address] | | | - LABORATORY | | | | + + + + + Lipid Panel (09/10/2014 2:09 PM PDT) + +---------+ + + + | Component | Value | Ref Range | Performed | Pathologist | | | | | At | Signature | + +---------+ + + + | Triglycerid | 263 (H) | 35 - 160 mg/dL | [facility] | | | es | | | [facility] | | | | | | MEDICAL | | | | | | CENTER - | | | | | | LABORATORY | | + +---------+ + + + | Cholesterol | 139 (L) | 150 - 200 mg/dL | [facility] | | | | | | [facility] | | | | | | MEDICAL | | | | | | CENTER - | | | | | | LABORATORY | | + +---------+ + + + | HDL | 51 | 29 - 89 mg/dL | [facility] | | | | | | [facility] | | | | | | MEDICAL | | | | | | CENTER - | | | | | | LABORATORY | | + +---------+ + + + | Chol/HDL | 2.7 | | [facility] | | | Ratio | | | [facility] | | | | | | MEDICAL | | | | | | CENTER - | | | | | | LABORATORY | | + +---------+ + + + | LDL, | 35 | <=130 mg/dL | [facility] | | [...] [address] | [place] | [phone] | | [facility] | | [address] | | | - LABORATORY | | | | + + + + + CBC with Differential (09/10/2014 2:09 PM PDT) + + + + + + | Component | Value | Ref Range | Performed | Pathologist | | | | | At | Signature | + + + + + + | WBC | 11.0 | 4.0 - 11.0 K/uL | [facility] | | | | | | [facility] | | | | | | MEDICAL | | | | | | CENTER - | | | | | | LABORATORY | | + + + + + + | RBC | 4.02 | 3.70 - 5.20 | [...] [address] | [place] | [phone] | | [facility] | | [address] | | | - LABORATORY | | [...] 1.39 (H) | 0.60 - 1.30 | [facility] | | | | | mg/dL | [facility] | | | | | | MEDICAL | | | | | | CENTER - | | | | | | LABORATORY | | + + + + + + | eGFR if not | 36 (L)Comment: | >=60 | [facility] | | | | GLOMERULAR FILTRATION | mL/min/1.73m2 | [facility] | | | [place]SIAN | RATE,ESTIMATED | | MEDICAL | | | | mL/min/1.76b8Emel than | | CENTER - | | [...] ST. | [address] | [place], [place] | [phone] | | [facility] | | [address] | | | - LABORATORY | | | | + + + + + documented in this encounter Visit Diagnoses + + | Diagnosis | + + | Post-traumatic osteoarthritis of left ankle - Primary | + + | HYPERTENSION NEC Complications affecting other specified body systems, hypertension | + + | Hyperlipidemia Other and unspecified hyperlipidemia | + + | Glossitis | + + | Type 2 diabetes mellitus with hyperglycemia (HCC) Type II or unspecified type | | diabetes mellitus without mention of complication, not stated as uncontrolled | + + | CHRONIC KIDNEY DISEASE STAGE III (MODERATE) Chronic kidney disease, Stage III | | (moderate) | + + documented in this encounter
--- OUTSIDE RECORDS SUMMARY | ~2019-07-24 | XMS | Encounter Summary ---
Demographics + + + | Address | [address] | | | [place] [address] | + + + | Home Phone [...] | Author | [facility] | | | and [place] | + + + | Organization | [facility] | | | and [...] | | | | | [place] [address] | | + + + + + | Valentín Saleh | ECON | [address] | | | | | [place] [address] | | + + + + + | Roberto Carlos Lennon | LEVI | Unknown | | + + + + + Care Team Providers + +------+ + | Care Electronics Engineering Technician Name | Role | Phone | [...] + + | 11/09/ | Emergency | [facility] | [place], | Hematuria (Primary | | 2014 | | MED CTR EMERGENCY | [place] [address] | Dx); Vaginal | | | | [place] [address] | [place], [place] | abrasion, initial | | | | [place], [place] | [address] | encounter; UTI | | | | [address] | | (lower urinary tract | | | | [phone] | | infection) | +--------+ + + [...] following attachments cannot be sent through Care Everywhere.DEBORAH (SRAVANI PLUMMER)HEMATURIA (MALAGASY)documented in this encounter Medications at Time of [...] | Culture | No Growth | | [facility] | | | | [...] + | [facility] | [address] | [place] | [phone] | | [facility] | | [address] | | | - LABORATORY | | | | + + + + + Culture, Urine (11/09/2014 8:32 PM PDT) + + + + + + | Component | Value | Ref Range | Performed | Pathologist | | | | | At | Signature | + + + + + + | Culture | 20,000 CFU/ml | | [facility] | | | | Escherichia coli | [...] [address] | [place] | [phone] | | [facility] | | [address] | | | - LABORATORY | | [...] + + + + | Clarity | Cloudy (A) | Clear | [facility] [...] - 1.030 | [facility] | | | [place], | | | [facility] | | [address] | [place] | [phone] | | [facility] | | [address] | | | - LABORATORY | | [...] | | preliminary report was sent by [employer] on 11/09/2014 at 8:36 PM | | [...] preliminary report was sent by | | [employer] on 11/09/2014 at 8:36 PM with nosignificant [...] | |A preliminary report was sent by [employer] on 11/09/2014 at 8:36 PM with no [...] + | [facility] | [address] | [place], [place] | [phone] | | [facility] | | [address] | | | - LABORATORY | | [...] ST. | [address] | [place] | [phone] | | [facility] | | [address] | | | - LABORATORY | | [...] | [employer] | | | [facility] | | | | | | MEDICAL | | | | | | CENTER - | | | | | | LABORATORY | | + +-------+ + + + + + | Specimen | + + | Blood | + + + + + + + | Performing | Address | City/State/[facility] Hospital[facility] | Phone Number | | Organization | | | | + + + + + | [facility] | [address] | [place] | [phone] | | [facility] | | [address] | | | - LABORATORY | | | | + + + + + Culture, Blood (11/09/2014 8:07 PM PDT) + + + + + + | Component | Value | Ref Range | Performed | Pathologist | | | | | At | Signature | + + + + + + | Culture | No Growth | | [facility] | | | | [...] + | [facility] | [address] | [place] | [phone] | | [facility] | | [address] | | | - LABORATORY | | [...] (H) | 7 - 18 mg/dL | [facility] | | | | | | [facility] | | | | | | MEDICAL | | | | | | CENTER - | | | | | | LABORATORY | | + + + + + + | Creatinine | 1.45 (H) | 0.60 - 1.30 | [facility] [...] | mL/min/1.73m2 | [facility] | | | [place] | RATE,ESTIMATED | | MEDICAL | | | | mL/min/1.65z3Shmk than | | CENTER - | | [...] | 9.3 | 8.3 - 10.5 | [facility] | | | | | mg/dL | [facility] | | | | | | MEDICAL | | | | | | CENTER - | | | | | | LABORATORY | | + + + + + + | Albumin | 3.2 | 3.2 - 5.0 g/dL | [facility] [...] + | BUN/Creatin | 19.3 | | [facility] | | | ine Ratio | | [...] [address] | [place] | [phone] | | [facility] | | [address] | | | - LABORATORY | | | | + + + + + CBC w/ Auto Differential (11/09/2014 8:05 PM PDT) + + + + + + | Component | Value | Ref Range | Performed | Pathologist | | | | | At | Signature | + + + + + + | WBC | 13.6 (H) | 4.0 - 11.0 K/uL | [facility] | | | | | | [facility] | | | | | | MEDICAL | | | | | | CENTER - | | | | | | LABORATORY | | + + + + + + | RBC | 3.95 | 3.70 - 5.20 | [...] [facility] | [address] | [place] | [phone] | | [facility] | | [address] | | | - LABORATORY | | [...]
--- OUTSIDE RECORDS SUMMARY | ~2019-07-24 | XMS | Encounter Summary ---
Demographics + + + | Address | [address] | | | [place] [address] | + + + | Home Phone [...] | Author | [facility] | | | and [place] | + + + | Organization | [facility] | | [...] | | | | | [place] [address] | | + + + + + | Valentín Saleh | ECON | [address] | | | | | [place] [address] | | + + + + + | Roberto Carlos Lennon | LEVI | [place] | | + + + + + Care Team Providers + +------+ + | Care Hog Operator Name | Role | Phone | + +------+ + PCP | Unavailable | + +------+ + Encounter Details +--------+ + + + + | Date | Type | Department | Care Team | Description | +--------+ + + + + | 11/28/ | Hospital | [facility] | Francois Pascal, | | | 2008 | Encounter | MED CTR LABORATORY | [address] | | | | | [address] [place] | [address], | | | | | [place] | [place] [address] | | | | | [address] | [phone] | | | | | [phone] | | | +--------+ + + + [...]
--- OUTSIDE RECORDS SUMMARY | ~2019-07-24 | XMS | Encounter Summary ---
Demographics + + + | Address | [address] | | | [place] [address] | + + + | Home Phone [...] | Author | [facility] | | | and [place] | + + + | Organization | [facility] | [...] | | | | | [place] [address] | | + + + + + | Valentín Saleh | ECON | [address] | | | | | [place] [address] | | + + + + + | Roberto Carlos Lennon | LEVI | [place] | | + + + + + Care Team Providers + +------+ + | Care Doctor Osteopathic Name | Role | Phone | + +------+ + PCP | Unavailable | + +------+ + Encounter Details +--------+ + + + + | Date | Type | Department | Care Team | Description | +--------+ + + + + | 11/07/ | Hospital | [facility] | | | | 1996 | Encounter | MED CTR XRAY [address] | | | | | | [address] [place] | | | | | | [place] [address] | | | | | | [phone] | | | +--------+ + + + [...]
--- OUTSIDE RECORDS SUMMARY | ~2019-07-24 | XMS | Encounter Summary ---
Demographics + + + | Address | [address] | | | [place] [address] | + + + | Home Phone [...] Author | [facility] | | | and [place] | + + + | Organization | [facility] | [...] | | | | | [place] [address] | | + + + + + | Valentín Saleh | ECON | [address] | | | | | [place] [address] | | + + + + + | Roberto Carlos Lennon | LEVI | Unknown | | + + + + + Care Team Providers + +------+ + | Care Data Entry Processor Name | Role | Phone | + +------+ + | Francois Pascal MD | PCP | | + +------+ + Encounter Details +--------+ + + + + | Date | Type | Department | Care Team | Description | +--------+ + + + + | 10/31/ | Abstract | [facility] | [place], | CHRONIC KIDNEY | | 2013 | | NEPHROLOGY [address] | [address] | DISEASE STAGE III | | | | [address] | [address], [place] | (MODERATE) (Primary | | | | [place], [place] | [address] [place] [address] [place] | Dx); Vitamin D | | | | [address] | [address] | deficiency | | | | [phone] | | | +--------+ + + + [...] encounter Progress Notes Zaynab Humphries RN - 10/31/2013 8:58 AM PDTLabs for nephrology appt on 11/29/13 sent to [facility] documented in thi s encounter Plan of Treatment Not on filedocumented as of this encounter Results Microalbumin/Creatinine Ratio, Urine (12/04/2013 [...] | unit (mg/dl) and | | [facility] [...] + | [facility] | [address] | [place], [place] | [phone] | | [facility] | | [address] | | | - LABORATORY | | | | + + + + + | [facility] | [address] | [place], [place] | | | [facility] | | [address], [facility] | | | - LABORATORY [...] + | [facility] | [address] | [place] | [phone] | | [facility] | | [address] | | | - LABORATORY | | | | + + + + + | [facility] | [address] | [place], [place] | | | [facility] | | [address] | | | [...] 21 | 12 - 88 pg/mL | [facility] [...] + | [facility] | [address] | [place] | [phone] | | [facility] | | [address] | | | - LABORATORY | | | | + + + + + | [facility] | [address] | [place] | | | [facility] | | [address] | | | [...] (H) | 7 - 18 mg/dL | [facility] | | | | | | [facility] | | | | | | MEDICAL | | | | | | CENTER - | | | | | | LABORATORY | | + + + + + + | Creatinine | 1.43 (H) | 0.60 - 1.30 | [facility] [...] mL/min/1.73m2 | [facility] | | | [place] | RATE,ESTIMATED | | MEDICAL | | | | mL/min/1.24y4Rmdv than | | CENTER - | | [...] 4.4 | 2.5 - 4.6 mg/dL | [facility] | | | | | | ST. [...] [address] | [place] | [phone] | | [facility] | | [address] | | | - LABORATORY | | | | + + + + + | [facility] | [address] | [place], [place] | | | [facility] | | [address], [facility] | | | - LABORATORY [...]
--- OUTSIDE RECORDS SUMMARY | ~2019-07-24 | XMS | Encounter Summary ---
Demographics + + + | Address | [address] | | | [place] [address] | + + + | Home Phone [...] | Author | [facility] | | | and [place] | + + + | Organization | [facility] [...] | | | | | [place] [address] | | + + + + + | Valentín Saleh | ECON | [address] | | | | | [place] [address] | | + + + + + | Roberto Carlos Lennon | LEVI | Unknown | | + + + + + Care Team Providers + +------+ + | Care President Financial Institution Name | Role | Phone | + [...] Description | +--------+--------+ + + + | 04/03/ | Refill | [facility] | Francois Pascal, | Medication Refill | | 2012 | | [facility] | [address] | | | | | [address] | [address], | | | | | [place] | [place] [address] | | | | | [address] | [phone] | | | | | [phone] | | | +--------+--------+ + + + [...]
--- OUTSIDE RECORDS SUMMARY | ~2019-07-24 | XMS | Encounter Summary ---
Demographics + + + | Address | [address] | | | [place] [address] | + + + | Home Phone [...] | [facility] | | | and [place] | + + + | Organization | [facility] | | | [...] | | | | | [place] [address] | | + + + + + | Valentín Saleh | ECON | [address] | | | | | [place] [address] | | + + + + + | Roberto Carlos Lennon | LEVI | Unknown | | + + + + + Care Team Providers + +------+ + | Care Cleat Blanker Name | Role | Phone | + [...] Description | +--------+--------+ + + + | 11/16/ | Refill | [facility] [place] [facility] | Francois Pascal, | Medication Refill | | 2012 | | MEDICINE [facility] | [address] | | | | | [facility] | [address], | | | | | [place] [address] | [place] [address] | | | | | [phone] | [phone] | | | | | | | [...]
--- OUTSIDE RECORDS SUMMARY | ~2019-07-24 | XMS | Encounter Summary ---
Demographics + + + | Address | [address] | | | [place] [address] | + + + | Home Phone [...] | Author | [facility] | | | and [place] | + + + | Organization | [facility] [...] | | | | | [place] [address] | | + + + + + | Valentín Saleh | ECON | [phone] | | | | | [place] [address] | | + + + + + | Roberto Carlos Lennon | LEVI | Unknown | | + + + + + Care Team Providers + +------+ + | Care Electric Sealing Machine Operator Name | Role | Phone | + +------+ + | Francois Pascal MD | PCP | | + +------+ + Encounter Details +--------+ + + + + | Date | Type | Department | Care Team | Description | +--------+ + + + + | 12/28/ | Orders Only | [facility] [place] | Jessica Saucedo, | | | 2012 | | CARDIOLOGY [address] | RN | | | | | [place], | | | | | | [place] [address] | | | | | | [phone] | | | +--------+ + + + [...]
--- OUTSIDE RECORDS SUMMARY | ~2019-07-24 | XMS | Encounter Summary ---
Demographics + + + | Address | [address] | | | [place] [address] | + + + | Home Phone [...] Author | [facility] | | | and [place] | + + + | Organization | [facility] | | | and [place] | + + + | Address | Unknown | + + + | Phone | Unavailable | + + + Support + + + + + | Name | Relationship | Address | Phone | + + + + + | Sigrid Lennno | ECON | [address] | | | | | [place] [address] | | + + + + + | Valentín Saleh | ECON | [address] | | | | | [place] [address] | | + + + + + | Roberto Carlos Lennon | LEVI | Unknown | | + + + + + Care Team Providers + +------+ + | Care Hot Cell Technician Name | Role | Phone | [...] Description | +--------+---------+ + + + | 11/11/ | Office | [facility] | Francois Pascal, | Primary | | 2017 | Visit | MEDICINE [address] | [address] | osteoarthritis of | | | | [address] [place] | [address] [place], | left ankle (Primary | | | | [place] [address] | [place] [address] | Dx); Impaired | | | | [phone] | [phone] | functional mobility, | | | | | | balance, gait, and | | | | | | endurance; | | | | | | Glossitis; S/p left | | | | | | hip fracture; Mild | | | | | | dementia (HCC) | +--------+---------+ + + + Social [...] + + + | Blood Pressure | 94/60 | 11/11/2016 9:37 AM | | | | | PDT | | + + + + + | Pulse | 57 | 11/11/2016 9:37 AM | | | | | PDT | | + + + + + | Temperature | 35.8 C (96.4 F) | 11/11/2016 9:37 AM | | | | | PDT | | + + + + + | Respiratory Rate | - | - | | + + + + + | Oxygen Saturation | 93% | 11/11/2016 9:37 AM | | | | | PDT | | + + + + + | Inhaled Oxygen | - | - | | | Concentration | | | | + + + + + | Weight | 69.4 kg (153 lb) | 11/11/2016 9:37 AM | | | | | PDT | | + + + + + | Height | - | - | | + + + + + | Body Mass Index | 24.69 | 09/09/2016 8:15 AM | | | [...] encounter Progress Notes Francois Pascal MD - 11/11/2016 9:45 AM PDTFormatting of this note might be different f rom the original. Subjective: Patient ID: Alyson Lennon is a 85 y.o. female. HPI Dementia, recent Delerium Confusion slightly less confused. There is no burning with uri nation. Pt denies any confusion. Her states her confusion is a little better. She seems less angry. She is still in [facility] and is fine with living there although she would like to go home . Left hip fracture, S/p fall 07/[address] Barbosa. She is still not weight beari ng and is wheelchair bound at this point. She is not in therapy at this point. Her tra nsfers are improving. Glossitis/ Autoimmune Dermatitis, The skin on the forehead is not painful or itchty at thi s point. Borderline, CKD, this is worsened post op, She [...] VSD Father 50 Pneumonia Family Hx of Cooke's chorea Sister and 2 brothers: CAD, Cooke's Disease to [place] - with 2 Healthy Children No kidney disease in family. Social History: Born in [facility] [...] pain, no joint swelling and No arthralgias. N o joint pain Skin: Neg for color change,no rash and No wounds, no Strange moles Neurological: Neg for dizziness, no Weakness,no light-headedness, no numbness and no headaches. Hematological: Neg for adenopathy. Does not bruise/bleed easily. Psychiatric/Behavioral: Neg for suicidal ideas,no confusion and no agitation. no Depression, no anxiety,no sleep problems Objective: BP 94/60 | Pulse 57 | Temp 35.8 C (96.4 F) (Temporal) | Wt 69.4 kg (153 lb) | SpO2 93% | BMI 24.69 kg/m Physical Exam Sitting in wheelchair, Left foot comfort splint in place. Heent, WNL, No carotid bruit Chest CTAB Heart RR&R /s M Abd S,NT,ND,BS+ Ext, no CCor E Neuro Non-focal Lymph, no cervical, axillary, inguinal adenopathy Musculoskeletal, no gross deformity or loss or range of motion Skin, no gross lesions Assessment: 1. Primary osteoarthritis of left ankle 2. Impaired functional mobility, balance, gait, and endurance 3. Glossitis 4. S/p left hip fracture 5. Mild dementia Plan: She would like to go home but her does not think he could take care of her without assistance. Could consider an assistant housekeeping manager. I certainly think she is safe to go home post home health evaluation. They will think about it. RTC 3 months. Otherwise contin ue current medical regimen. documented in this encounter Plan of Treatment Not on filedocumented as of this encounter Visit Diagnoses + + | Diagnosis | + + | Primary osteoarthritis of left ankle - Primary | + + | Impaired functional mobility, balance, gait, and endurance | + + | Glossitis | + + | S/p left hip fracture | + + | Mild dementia (HCC) Dementia, unspecified, without behavioral disturbance | + + documented in this encounter"
--- OUTSIDE RECORDS SUMMARY | ~2019-07-24 | XMS | Encounter Summary ---
Demographics + + + | Address | [address] | | | [place] [address] | + + + | Home Phone [...] | Author | [facility] | | | and [place] | + + + | Organization | [facility] [...] | | | | | [place] [address] | | + + + + + | Valentín Saleh | ECON | [address] | | | | | [place] [address] | | + + + + + | Roberto Carlos Lennon | LEVI | Unknown | | + + + + + Care Team Providers + +------+ + | Care Director Of Marketing Communications Name | Role | Phone | + +------+ + | Francois Pascal MD | PCP | | + +------+ + Encounter Details +--------+ + + + + | Date | Type | Department | Care Team | Description | +--------+ + + + + | 11/16/ | Abstract | [facility] | DATA [facility] | | | 2011 | | Conversion Location | SR | | | | | [address] | | | | | | [place], [place] | | | | | | [address] | | | | | | [phone] | | | +--------+ + + + [...] + + + | Blood Pressure | 120/56 | 09/28/2011 12:00 AM | | | | | PDT | | + + + + + | Pulse | - | - | | + [...] Weight | 77.6 kg (171 lb) | 09/28/2011 12:00 AM | | | | | PDT | | + + + + + | Height | 158.8 cm (5' 2.5") | 03/24/2009 12:00 AM | | | | | PST | | + + + + + | Body Mass Index | 30.78 | 03/24/2009 12:00 AM | | | | | PST | | + + + + + documented in this encounter Plan of Treatment Not on filedocumented as of this encounter Procedures + +--------+ + + + | Procedure Name | Priori | Date/Time | Associated Diagnosis | Comments | | | ty | | | | + +--------+ + + + | TAWNYA SCREENING | Routin | 02/20/2009 | | Results for this | | BILATERAL | e | 12:00 AM | | procedure are in the | | | | PST | | results section. | + +--------+ + + + | PAP SMEAR | Routin | 12/02/2007 | | Results for this | | | e | 12:00 AM | | procedure are in the | | | | PDT | | results section. | + +--------+ + + + | ENDOSCOPY, COLON, | Routin | 03/07/2002 | | Results for this | | DIAGNOSTIC | e | 12:00 AM | | procedure are in the | | | | PST | | results section. | + +--------+ + + + documented in this encounter Results TAWNYA Screening Bilateral (02/20/2009 12:00 AM PST) + + | Specimen | + + | | + + + + + | Narrative | Performed At | + + + | | | + + + Pap Smear (12/02/2007 12:00 AM PDT) + + | Specimen | + + | | + + + + + | Narrative | Performed At | + + + | | | + + + ENDOSCOPY, COLON, DIAGNOSTIC (03/07/2002 12:00 AM PST) + + | Specimen | + + | | + + + + + | Narrative | Performed At | + + + | | | + + + documented in this encounter Visit Diagnoses Not on filedocumented in this encounter
--- OUTSIDE RECORDS SUMMARY | ~2019-07-24 | XMS | Encounter Summary ---
Demographics + + + | Address | [address] | | | [place] [address] | + + + | Home Phone | | + + + | Preferred Language | Unknown | + + + | Marital Status | | + + + | Tenriism Affiliation | Unknown | + + + | Race | Unknown | + + + | Ethnic Group | Unknown | + + + Author + + + | Author | [facility] | | | and [place] | + + + | Organization | [facility] | | | and [place] | + + + | Address | Unknown | + + + | Phone | Unavailable | + + + Support + + + + + | Name | Relationship | Address | Phone | + + + + + | Sigrid Lennon | ECON | [address] | | | | | [place] [address] | | + + + + + | Valentín Saleh | ECON | [address] | | | | | [place] [address] | | + + + + + | Roberto Carlos Lennon | LEVI | [place] | | + + + + + Care Team Providers + +------+ + | Care It Systems Administrator Name | Role | Phone | + +------+ + PCP | Unavailable | + +------+ + Encounter Details +--------+ + + + + | Date | Type | Department | Care Team | Description | +--------+ + + + + | 09/08/ | Hospital | [facility] | Francois Pascal, | | | 2010 | Encounter | [facility] CTR [facility] | [address] | | | | | [address] [place] | [address], | | | | | [place] | [place] [address] | | | | | [address] | [phone] | | | | | [phone] | | | +--------+ + + + [...] + | [facility] | [address] | [place], [place] | [phone] | | [facility] | | [address] | | | - LABORATORY | | | | + + + + + | [facility] | [address] | [place], [place] | | | [facility] | | [address] | | | - LABORATORY [...] + + + + | Clarity | CLEAR | | [facility] | | | | [...] - 1.030 | [facility] | | | [place], | | | [facility] | | [...] [address] | [place] | [phone] | | [facility] | | [address] | | | - LABORATORY | | | | + + + + + | [facility] | [address] | [place] | | | [facility] | | [address], [facility] | | | - LABORATORY | [...] (H) | 35 - 160 mg/dL | [facility] | | | es | | | [...] 39 | 29 - 89 mg/dL | [facility] | | | | | | [facility] | | | | | | MEDICAL | | | | | | CENTER - | | | | | | LABORATORY | | + + + + + + | LDL, | 55 | <130 mg/dL | [facility] | | | Calculated | | | [facility] | | [...] + | [facility] | [address] | [place], [place] | [phone] | | [facility] | | [address] | | | - LABORATORY | | | | + + + + + | [facility] | [address] | [place], [place] | | | [facility] | | [address] | | | - LABORATORY [...] | | Phosphatase | | | [facility] | | [...] 43 (L)Comment: For | >60 mL/min/A | [facility] [...] + | [facility] | [address] | [place], [place] | [phone] | | [facility] | | [address] | | | - LABORATORY | | | | + + + + + | [facility] | [address] | [place], [place] | | | [facility] | | [id number] [place] [address] | | | - LABORATORY | | [...] A1c | DIABETIC PATIENT RANGES: | | [facility] | | | | 6.2-7.0% = [...] + | [facility] | [address] | [place], [place] | [phone] | | [facility] | | [address] | | | - LABORATORY | | | | + + + + + | [facility] | [address] | [place], [place] | | | [facility] | | [address] [place] [address] | | | - LABORATORY | | [...] + + + + | RBC | 3.81 | 3.70 - 5.20 | [facility] | | | | | M/uL | [facility] | | | | | | [facility]ICAL | | | | | | CENTER - | | | | | | LABORATORY | | + + + + + + | Hemoglobin | 13.8 | 11.5 - 16.0 | [facility] | | | | | gm/dL | [facility] | | | | [...] + | [facility] | [address] | [place], [place] | [phone] | | [facility] | | [address] | | | - LABORATORY | | | | + + + + + | [facility] | [address] | [place], [place] | | | [facility] | | [address] [place] [address] | | | - LABORATORY | | | | + + + + + documented in this encounter Visit Diagnoses Not on filedocumented in this encounter"
--- OUTSIDE RECORDS SUMMARY | ~2019-07-24 | XMS | Encounter Summary ---
Demographics + + + | Address | [address] | | | [place] [address] | + + + | Home Phone [...] | [facility] | | | and [place] | + + + | Organization | [facility] | | [...] | | | | | [place] [address] | | + + + + + | Valentín Saleh | ECON | [address] | | | | | [place] [address] | | + + + + + | Roberto Carlos Lnenon | LEVI | Unknown | | + + + + + Care Team Providers + +------+ + | Care Conveyor Attendant Name | Role | Phone | [...] + | 12/27/ | Refill | [facility] [place] [facility] | Francois Pascal, | Medication Refill | | 2014 | | MEDICINE [place] | [address] | | | | | [address] | [address], | | | | | [place] | [place] [address] | | | | | [address] | [phone] | | | | | [phone] | | | +--------+--------+ + + + [...]
--- OUTSIDE RECORDS SUMMARY | ~2019-07-24 | XMS | Encounter Summary ---
Demographics + + + | Address | [address] | | | [place] [address] | + + + | Home Phone | | + + + | Preferred Language | Unknown | + + + | Marital Status | | + + + | Taoist Affiliation | Unknown | + + + | Race | Unknown | + + + | Ethnic Group | Unknown | + + + Author + + + | Author | [facility] | | | and [place] | + + + | Organization | [facility] [...] | | | | | [place] [address] | | + + + + + | Valentín Saleh | ECON | [address] | | | | | [place] [address] | | + + + + + | Roberto Carlos Lennon | LEVI | Unknown | | + + + + + Care Team Providers + +------+ + | Care Computer Clerk Name | Role | Phone | + +------+ + | Francois Pascal MD | PCP | | + +------+ + Reason for Visit + + + | Reason | Comments | + + + | Medication Orders | Orders | + + + Encounter Details +--------+ + + + + | Date | Type | Department | Care Team | Description | +--------+ + + + + | 11/01/ | Telephone | [facility] | Francois Pascal, | Medication Orders | | 2019 | | MEDICINE [place] | [address] | (Orders) | | | | [address] | [address], | | | | | [place] | [place] [address] | | | | | [address] | [phone] | | | | | [phone] | | | +--------+ + + + [...]
--- OUTSIDE RECORDS SUMMARY | ~2019-07-24 | XMS | Encounter Summary ---
Demographics + + + | Address | [address] | | | [place] [address] | + + + | Home Phone [...] | Author | [facility] | | | and [place] | + + + | Organization | [facility] [...] | | | | | [place] [address] | | + + + + + | Valentín Saleh | ECON | [address] | | | | | [place] [address] | | + + + + + | Roberto Carlos Lennon | LEVI | [place] | | + + + + + Care Team Providers + +------+ + | Care Police Officer Name | Role | Phone | + +------+ + PCP | Unavailable | + +------+ + Encounter Details +--------+ + + + + | Date | Type | Department | Care Team | Description | +--------+ + + + + | 11/03/ | Hospital | [facility] | | | | 1999 | Encounter | MED CTR LAB[facility]ORY | | | | | | [address] | | | | | | [place] | | | | | | [address] | | | | | | [phone] | | | +--------+ + + + [...]
--- OUTSIDE RECORDS SUMMARY | ~2019-07-24 | XMS | Encounter Summary ---
Demographics + + + | Address | [address] | | | [place] [address] | + + + | Home Phone [...] | [facility] | | | and [place] | + + + | Organization | [facility] | | [...] | | | | | [place] [address] | | + + + + + | Valentín Saleh | ECON | [address] | | | | | [place] [address] | | + + + + + | Roberto Carlos Lennon | LEVI | [place] | | + + + + + Care Team Providers + +------+ + | Care Oil Dispatcher Name | Role | Phone | + +------+ + PCP | Unavailable | + +------+ + Encounter Details +--------+ + + + + | Date | Type | Department | Care Team | Description | +--------+ + + + + | 12/20/ | Hospital | [facility] | | | | 2001 | Encounter | MED CTR [facility] IN[facility] OP | | | | | | [address] | | | | | | [place] | | | | | | [address] | | | | | | [phone] | | | +--------+ + + + [...]
--- OUTSIDE RECORDS SUMMARY | ~2019-07-24 | XMS | Encounter Summary ---
Demographics + + + | Address | [address] | | | [place] [address] | + + + | Home Phone [...] | Author | [facility] | | | and [place] | + + + | Organization | [facility] [...] | | | | | [place] [address] | | + + + + + | Valentín Saleh | ECON | [address] | | | | | [place] [address] | | + + + + + | Roberto Carlos Lennon | LEVI | Unknown | | + + + + + Care Team Providers + +------+ + | Care Repair Supervisor Name | Role | Phone | + +------+ + | Francois Pascal MD | PCP | | + +------+ + Encounter Details +--------+ + + + + | Date | Type | Department | Care Team | Description | +--------+ + + + + | 12/18/ | Orders Only | [facility] | Francois Pascal, | Type I (juvenile | | 2011 | | MEDICINE [place] | [address] | type) diabetes | | | | [address] | [address], | mellitus without | | | | [place] | [place] [address] | mention of | | | | [address] | [phone] | complication, not | | | | [phone] | | stated as | | | | | | uncontrolled ([facility]) | | | | | | (Primary Dx) | +--------+ + + + + Social [...] filedocumented as of this encounter Results Hemoglobin A1c (12/20/2011 10:48 AM PDT) + + + + + + | Component | Value | Ref Range | Performed | Pathologist | | | | | At | Signature | + + + + + + | Hemoglobin | 8.0 (H)Comment: | 4.3 - 5.8 % | [...] + | [facility] | [address] | [place], [place] | [phone] | | [facility] | | [address] | | | - LABORATORY | | | | + + + + + | [facility] | [address] | [place], [place] | | | [facility] | | [address] [place] [address] | | | - LABORATORY | | | | + + + + + documented in this encounter Visit Diagnoses + + | Diagnosis | + + | Type I (juvenile type) diabetes mellitus without mention of complication, not stated | | as uncontrolled - Primary | + + documented in this encounter"
--- OUTSIDE RECORDS SUMMARY | ~2019-07-24 | XMS | Encounter Summary ---
Demographics + + + | Address | [address] | | | [place] [address] | + + + | Home Phone | | + + + | Preferred Language | Unknown | + + + | Marital Status | | + + + | Denominational Affiliation | Unknown | + + + | Race | Unknown | + + + | Ethnic Group | Unknown | + + + Author + + + | Author | [facility] | | | and [place] | + + + | Organization | [facility] [...] | | | | | [place] [address] | | + + + + + | Valentín Saleh | ECON | [id number] | | | | | [place] [address] | | + + + + + | Roberto Carlos Lennon | LEVI | Unknown | | + + + + + Care Team Providers + +------+ + | Care Health Education Director Name | Role | Phone | + +------+ + | Francois Pascal MD | PCP | | + +------+ + Encounter Details +--------+ + + + + | Date | Type | Department | Care Team | Description | +--------+ + + + + | 05/27/ | Hospital | [facility] | Francois Pascal, | Essential | | 2017 | Encounter | MED CTR LABORATORY | [address] | hypertension with | | | | [address] [place] | [address] [place], | goal blood pressure | | | | [place], [place] | [place] [address] | less than 130/80; | | | | [address] | [phone] | Diabetes mellitus | | | | [phone] | | due to underlying | | | | | | condition with | | | | | | hyperglycemia, with | | | | | | long-term current | | | | | | use of insulin | | | | | | ([facility]); Coronary | | | | | | artery disease | | | | | | involving menominee | | | | | | coronary artery of | | | | | | menominee heart without | | | | | [...] | | 0 | | | | Arohsqx-Lnztjrnjq-El | mouth Daily. | | | | [...] TABLETS BY | 20 | 2 | 05/26/19 | | | mg tablet | MOUTH ONCE WEEKLY | tablet | | 17 | 7 | + + + +---------+ [...] encounter Progress Notes Francois Pascal MD - 05/28/2016 12:10 PM PDT Quick Note: Ok for jovana to notify [...] + | LIPID PANEL | Routin | 05/27/2016 | Essential | Results for this | | | e | 9:00 AM | hypertension with | procedure are in the | | | | PDT | goal blood pressure | results section. | | | | | less than 130/80 | | + +--------+ + + + | CBC WITH | Routin | 05/27/2016 | Essential | Results for this | | DIFFERENTIAL | e | 9:00 AM | hypertension with | procedure are in the | | | | PDT | goal blood pressure | results section. | | | | | less than 130/80 | | + +--------+ + + + | HEMOGLOBIN A1C | Routin | 05/27/2016 | Diabetes mellitus | Results for this | | | e | 9:00 AM | due to underlying | procedure are in the | | | | PDT | condition with | results section. | | | | | hyperglycemia, with | | | | | | long-term current | | | | | | use of insulin (HCC) | | + +--------+ + + + | BILIRUBIN, DIRECT | Routin | 05/27/2016 | Coronary artery | Results for this | | | e | 9:00 AM | disease involving | procedure are in the | | | | PDT | menominee coronary | results section. | | | | | artery of menominee | | | | | | heart without angina | | | | | | pectoris | | + +--------+ + + + | COMPREHENSIVE | Routin | 05/27/2016 | Essential | Results for this | | METABOLIC PANEL | e | 9:00 AM | hypertension with | procedure are in the | | | | PDT | goal blood pressure | results section. | | | | | less than 130/80 | | + +--------+ + + + documented in this encounter Results Bilirubin, Direct (05/27/2016 9:00 AM PDT) + +-------+ + + + | Component | Value | Ref Range | Performed | Pathologist | | | | | At | Signature | + +-------+ + + + | Bilirubin, | 0.20 | 0.00 - 0.20 | [facility] | | | Direct | | mg/dl | [facility] | | | | [...] [address] | [place] | [phone] | | [facility] | | [address] | | | - LABORATORY | | | | + + + + + Lipid Panel (05/27/2016 9:00 AM PDT) + + + + + + | Component | Value | Ref Range | Performed | Pathologist | | | | | At | Signature | + + + + + + | Triglycerid | 208 (H) | 35 - 160 mg/dL | [facility] | | | es | | | [facility] | | | | | | MEDICAL | | | | | | CENTER - | | | | | | LABORATORY | | + + + + + + | Cholesterol | 136 (L) | 150 - 200 mg/dL | [facility] | | | | | | [facility] | | | | | | MEDICAL | | | | | | CENTER - | | | | | | LABORATORY | | + + + + + + | HDL | 35Comment: New HDL | 28 - 83 mg/dL | [facility] | | | | Reference Range as of | | [facility] | | | | November 14, 2014 [...] LDL, | 59 | <=130 mg/dL | [facility] | | [...] [address] | [place] | [phone] | | [facility] | | [address] | | | - LABORATORY | | [...] | Estimated | 226 | mg/dL | [facility] | | | Average | | | [facility] | | | Glucose | | [...] [address] | [place] | [phone] | | [facility] | | [address] | | | - LABORATORY | | [...] + + + + | RBC | 4.44 | 3.70 - 5.20 | [...] | | Neutrophils | | K/uL | . [facility] | [...] [address] | [place] | [phone] | | [facility] | | [address] | | | - LABORATORY | | [...] 86 | 70 - 109 mg/dL | [facility] | | | | | | [facility] | | | | | | MEDICAL | | | | | | CENTER - | | | | | | LABORATORY | | + + + + + + | BUN | 14 | 7 - 18 mg/dL | [facility] | | | | | | [facility] | | | | | | MEDICAL | | | | | | CENTER - | | | | | | LABORATORY | | + + + + + + | Creatinine | 1.05 | 0.60 - 1.30 | [facility] | | | | | mg/dL | [facility] | | | | | | MEDICAL | | | | | | CENTER - | | | | | | LABORATORY | | + + + + + + | eGFR if not | 50 (L)Comment: | >=60 | [facility] | | | | GLOMERULAR FILTRATION | mL/min/1.73m2 | [facility] | | | ENGLISH | RATE,ESTIMATED | | MEDICAL | | | | mL/min/1.33q0Rtho than | | CENTER - | | [...] ST. 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
--- OUTSIDE RECORDS SUMMARY | ~2019-07-24 | XMS | Encounter Summary ---
Demographics + + + | Address | [address] | | | [place] [address] | + + + | Home Phone [...] [facility] | | | and [place] | + + + | Organization | [facility] | [...] | | | | | [place] [address] | | + + + + + | Valentín Saleh | ECON | [address] | | | | | [place] [address] | | + + + + + | Roberto Carlos Lennon | LEVI | [place] | | + + + + + Care Team Providers + +------+ + | Care Resaw Machine Operator Name | Role | Phone | + +------+ + PCP | Unavailable | + +------+ + Encounter Details +--------+ + + + + | Date | Type | Department | Care Team | Description | +--------+ + + + + | 11/15/ | Hospital | [facility] | | | | 1999 | Encounter | MED CTR XRAY [address] | | | | | | [address] [place] | | | | | | [place] [address] | | | | | | [phone] | | | +--------+ + + + [...]
--- OUTSIDE RECORDS SUMMARY | ~2019-07-24 | XMS | Encounter Summary ---
Demographics + + + | Address | [address] | | | [place] [address] | + + + | Home Phone [...] | Author | [facility] | | | and [place] | + + + | Organization | [facility] [...] | | | | | [place] [address] | | + + + + + | Valentín Saleh | ECON | [address] | | | | | [place] [address] | | + + + + + | Roberto Carlos Lennon | LEVI | Unknown | | + + + + + Care Team Providers + +------+ + | Care Foreign Agent Name | Role | Phone | + +------+ + | Francois Pascal MD | PCP | | + +------+ + Encounter Details +--------+ + + + + | Date | Type | Department | Care Team | Description | +--------+ + + + + | 03/02/ | Hospital | [facility] | Francois Pascal, | | | 2011 - | Encounter | MED CTR XRAY [address] | [address] | | | | | [place] | [address] [place], | | | 03/04/ | | [place] [address] | [place] [address] | | | 2011 | | [phone] | [phone] | | | | | | | [...] | | | | | | mellitus) ([facility]) | | | | | | + + + +---------+ + + | lisinopril | Take 40 mg by mouth | | 0 | 11/18/19 | | | (PRINIVIL,ZESTRIL) | Daily. | | | 12 | 3 | | 40 MG tablet | | | | | | + + + +---------+ + + | methotrexate 2.5 | TAKE FIVE TABLETS BY | 20 | 1 | 12/20/19 | | | mg tablet | MOUTH WEEKLY | tablet | | 12 | 2 | + + + +---------+ + + | metoprolol (TOPROL | Take 200 mg by mouth | | 0 | 11/18/19 | | | XL) 200 MG 24 hr | Daily. | | | 12 | [...] + +--------+ + + + | TAWNYA DIGITAL | Routin | 03/02/2012 | | Results for this | | SCREENING BILATERAL | e | 11:04 AM | | procedure are in the | | | | PST | | results section. | + +--------+ + + + documented in this encounter Results TAWNYA Digital Screening Bilateral (03/02/2012 11:04 AM PST) + + | Specimen | + + | | + + + + + | Narrative | Performed At | + + + | [facility] | SUTTER | | Department [address] , [place] | [facility] | | [ rep ct [address]] [ rep ct [facility] | | st zip] Signed | - IMAGING | | | | | Patient Name: ALYSON LENNON Physician: | | | SIMONE. : 1930 Age: 81 Sex: F Unit #: [id number] | | | Exam Date: 03/02/12 Location: [facility] | | | Report #: [id number] Page: | | | %(RAD)RES..mtdd.print.filter("pg") of %(RAD) | | | RES..mtdd.print.filter("tpg") | | | | | | Accession Number: [id number] | | | BILATERAL SCREENING MAMMOGRAM WITH CAD CLINICAL HISTORY: | | | NO PERSONAL OR FAMILY HISTORY OF BREAST CANCER. THE PATIENT HAS A | | | HISTORY OF SKIN CANCER ON HER NOSE. THE PATIENT ALSO HAS A HISTORY | | | OF BENIGN RIGHT EXCISIONAL BIOPSY IN 1991. COMPARISON: | | | 02/25/2011, 02/23/2010, 02/20/2009, 02/20/2008, 02/17/2007, | | | 11/11/2005. TECHNIQUE: Bilateral screening mammograms | | | were obtained. Images were reviewed with the assistance of CAD. | | | FINDINGS: There is heterogeneous fibroglandular tissue | | | density, which can decrease the sensitivity of mammography. | | | Scattered bilateral benign punctate and secretory type calcifications | | | are noted. There is also extensive vascular calcification | | | bilaterally. No new or suspicious masses, calcifications, or | | | architectural distortion are seen in either breast. | | | IMPRESSION: BIRADS 2: BENIGN. RECOMMEND ANNUAL | | | SCREENING MAMMOGRAPHY. Dictated Date/Time: 03/02/2012 | | | 11:04 Transcribed Date/Time: 03/02/2012 11:10 | | | Commercial Illustrator: <<Signature on File>> | | | | | | David Keen [id number] <Electronically signed by | | | Jaden Keen MD> David Keen MD 03/02/12 1104 | | | Commercial Illustrator: Synetiqleroy Zaxwfigcmutpm11/27/12 1110 | | | | | + + + + + + + + | Performing | Address | City/State/Zipcode | Phone Number | | Organization | | | | + + + + + | [facility] | [address] | [place] | [phone] | | [facility] | | [address] | | | - IMAGING | | | | + + + + + documented in this encounter Visit Diagnoses Not on filedocumented in this encounter
--- OUTSIDE RECORDS SUMMARY | ~2019-07-24 | XMS | Encounter Summary ---
Demographics + + + | Address | [address] | | | [place] [address] | + + + | Home Phone [...] Author | [facility] | | | and [place] | + + + | Organization | [facility] | | | and [place] | + + + | Address | Unknown | + + + | Phone | Unavailable | + + + Support + + + + + | Name | Relationship | Address | Phone | + + + + + | Sigrid Lennon | ECON | [address] | | | | | [place] [address] | | + + + + + | Valentín Saleh | ECON | [address] | | | | | [place] [address] | | + + + + + | Roberto Carlos Lennon | LEVI | Unknown | | + + + + + Care Team Providers + +------+ + | Care Senior Applications Architect Name | Role | Phone | + +------+ + | Francois Pascal MD | PCP | | + +------+ + Reason for Visit + + + | Reason | Comments | + + + | Medication | Glucose | | Management | | + + + Encounter Details +--------+ + + + + | Date | Type | Department | Care Team | Description | +--------+ + + + + | 11/20/ | Telephone | [facility] | Francois Pascal, | Medication | | 2019 | | MEDICINE [facility] | [address] | Management (Glucose | | | | [address] | [address] [place], | ) | | | | [place] | [place] [address] | | | | | [address] | [phone] | | | | | [phone] | | | +--------+ + + + [...]
--- OUTSIDE RECORDS SUMMARY | ~2019-07-24 | XMS | Encounter Summary ---
Demographics + + + | Address | [address] | | | [place] [address] | + + + | Home Phone [...] | Author | [facility] | | | and [place] | + + + | Organization | [facility] [...] | | | | | [place] [address] | | + + + + + | Valentín Saleh | ECON | [address] | | | | | [place] [address] | | + + + + + | Roberto Carlos Lennon | LEVI | [place] | | + + + + + Care Team Providers + +------+ + | Care Geospatial Technician Name | Role | Phone | + +------+ + PCP | Unavailable | + +------+ + Encounter Details +--------+ + + + + | Date | Type | Department | Care Team | Description | +--------+ + + + + | 05/01/ | Hospital | [facility] | Jason Hernandez, | | | 2010 | Encounter | MED CTR XRAY [address] | PA-C [address] | | | | | [place] | [address] [place] | | | | | [place] [address] | [place] [address] | | | | | [phone] | [phone] | | | | | | | [...]
--- OUTSIDE RECORDS SUMMARY | ~2019-07-24 | XMS | Encounter Summary ---
Demographics + + + | Address | [address] | | | [place] [address] | + + + | Home Phone [...] | Author | [facility] | | | and [place] | + + + | Organization | [facility] [...] | | | | | [place] [address] | | + + + + + | Valentín Saleh | ECON | [address] | | | | | [place] [address] | | + + + + + | Roberto Carlos Lennon | LEVI | [place] | | + + + + + Care Team Providers + +------+ + | Care Manager Pediatric Name | Role | Phone | + +------+ + PCP | Unavailable | + +------+ + Encounter Details +--------+ + + + + | Date | Type | Department | Care Team | Description | +--------+ + + + + | 02/09/ | Hospital | [facility] | RiderMauricio villarreal | | | 2009 | Encounter | MED CTR XRAY [address] | [place] [facility] | | | | | [place] | [place] | | | | | [place] [address] | [address] | | | | | [phone] | | | +--------+ + + + [...]
--- OUTSIDE RECORDS SUMMARY | ~2019-07-24 | XMS | Encounter Summary ---
Demographics + + + | Address | [address] | | | [place] [address] | + + + | Home Phone | | + + + | Preferred Language | Unknown | + + + | Marital Status | | + + + | Baptism Affiliation | Unknown | + + + | Race | Unknown | + + + | Ethnic Group | Unknown | + + + Author + + + | Author | [facility] | | | and [place] | + + + | Organization | [facility] | | | and [...] | | | | | [place] [address] | | + + + + + | Valentín Saleh | ECON | [address] | | | | | [place] [address] | | + + + + + | Roberto Carlos Lennon | LEVI | Unknown | | + + + + + Care Team Providers + +------+ + | Care Six Color Press Operator Name | Role | Phone [...] Description | +--------+--------+ + + + | 07/17/ | Refill | [facility] | Francois Pascal, | Medication Refill | | 2020 | | [facility] | [address] | | | | | [address] | [address] [place], | | | | | [place] | [place] [address] | | | | | [address] | [phone] | | | | | [phone] | | | +--------+--------+ + + + [...] | Diagnosis | + + | Dyslipidemia Other and unspecified hyperlipidemia | + + documented in this encounter"
--- OUTSIDE RECORDS SUMMARY | ~2019-07-24 | XMS | Encounter Summary ---
Demographics + + + | Address | [address] | | | [place] [address] | + + + | Home Phone [...] Author | [facility] | | | and [place] | + + + | Organization | [facility] | [...] | | | | | [place] [address] | | + + + + + | Valentín Saleh | ECON | [address] | | | | | [place] [address] | | + + + + + | Roberto Carlos Lennon | LEVI | Unknown | | + + + + + Care Team Providers + +------+ + | Care Bmw Service Technician Name | Role | Phone | [...] Refill | | 2011 | | MEDICINE [place] | [address] | | | | | [address] | [address] [place], | | | | | [place] | [place] [address] | | | | | [address] | [phone] | | | | | [phone] | | | +--------+--------+ + + + [...] on filedocumented as of this encounter Results Comprehensive metabolic [...] 18 | 7 - 18 mg/dL | [facility] + | | [facility] | [facility] | | | - LABORATORY | + + + + + + + + | Performing | Address | City/State/Zipcode | Phone Number | | Organization | | | | + + + + + | [facility] | [address] | [place] | [phone] | | [facility] | | [address] | | | - LABORATORY | | | | + + + + + | [facility] | [address] | [place], [place] | | | [facility] | | [address] | | | - LABORATORY | | | | + + + + + documented in this encounter Visit Diagnoses + + | Diagnosis | + + | ARTHRITIS, CHRONIC - Primary Arthropathy, unspecified, site unspecified | + + documented in this encounter"
--- OUTSIDE RECORDS SUMMARY | ~2019-07-24 | XMS | Encounter Summary ---
Demographics + + + | Address | [address] | | | [place] [address] | + + + | Home Phone | | + + + | Preferred Language | Unknown | + + + | Marital Status | | + + + | Jainism Affiliation | Unknown | + + + | Race | Unknown | + + + | Ethnic Group | Unknown | + + + Author + + + | Author | [facility] | | | and [place] | + + + | Organization | [facility] | | [...] | | | | | [place] [address] | | + + + + + | Valentín Saleh | ECON | [address] | | | | | [place] [address] | | + + + + + | Roberto Carlos Lennon | LEVI | Unknown | | + + + + + Care Team Providers + +------+ + | Care Galley Hand Name | Role | Phone | [...] + + | Closed | Specialty | Dermatology | Diagnoses | Naida, | Jhonathan | | | Services | | Skin cancer | Francois Tello MD | Madalyn | | | Required | | | [address] | [address] | | | | | | [address] | [address] | | | | | | [place] | [address] | | | | | | [place], [place] | [place], [place] | | | | | | [address] | [address] | | | | | | Phone: | Phone: | | | | | | [phone] | [phone] | | | | | | Fax: | Fax: | | | | | | [phone] | [phone] | +--------+ + + + + + Encounter Details +--------+ + + + + | Date | Type | Department | Care Team | Description | +--------+ + + + + | 05/31/ | Orders Only | [facility] [place] [facility] | Francois Pascal, | Skin cancer (Primary | | 2017 | | MEDICINE [employer] [facility] | [address] | Dx) | | | | Street [place] | [address] [place], | | | | | [place] [address] | [place] [address] | | | | | [phone] | [phone] | | | | | | | [...] as of this encounter Plan of Treatment + + +--------+ + + | Name | Type | Priori | Associated Diagnoses | Order Schedule | | | | ty | | | + + +--------+ + + | Ambulatory referral | Outpatient | Routin | Skin cancer | Ordered: 05/31/2016 | | to Dermatology | Referral | e | | | + + +--------+ + + documented as of this encounter Visit Diagnoses + + | Diagnosis | + + | Skin cancer - Primary Unspecified malignant neoplasm of skin, site unspecified | + + documented in this encounter"
--- OUTSIDE RECORDS SUMMARY | ~2019-07-24 | XMS | Encounter Summary ---
Demographics + + + | Address | [address] | | | [place] [address] | + + + | Home Phone [...] | Author | [facility] | | | and [place] | + + + | Organization | [facility] | | | and [place] | + + + | Address | Unknown | + + + | Phone | Unavailable | + + + Support + + + + + | Name | Relationship | Address | Phone | + + + + + | Sigrid Lennon | ECON | [address] | | | | | [place] [address] | | + + + + + | Valentín Saleh | ECON | [address] | | | | | [place] [address] | | + + + + + | Roberto Carlos Lennon | LEVI | Unknown | | + + + + + Care Team Providers + +------+ + | Care Health Information Systems Technician Name | Role | Phone | [...] + | 01/12/ | Refill | [facility] | Francois Pascal, | Medication Refill | | 2013 | | [facility] | [address] | | | | | [address] | [address] [place], | | | | | [place] | [place] [address] | | | | | [address] | [phone] | | | | | [phone] | | | +--------+--------+ + + + [...]
--- OUTSIDE RECORDS SUMMARY | ~2019-07-24 | XMS | Encounter Summary ---
Demographics + + + | Address | [address] | | | [place] [address] | + + + | Home Phone [...] Author | [facility] | | | and [place] | + + + | Organization | [facility] | | [...] | | | | | [place] [address] | | + + + + + | Valentín Saleh | ECON | [address] | | | | | [place] [address] | | + + + + + | Roberto Carlos Lennon | LEVI | Unknown | | + + + + + Care Team Providers + +------+ + | Care Roller Coaster Designer Name | Role | Phone | [...] + + | 06/13/ | Refill | [facility] [place] | F[place], | Medication Refill | | 2012 | | NEPHROLOGY [address] | [address] | | | | | [address] | [address], [place] | | | | | [place], [place] | [address] [place] [address] | | | | | [address] | [address] | | | | | [phone] | | | +--------+--------+ + + + [...]
--- OUTSIDE RECORDS SUMMARY | ~2019-07-24 | XMS | Encounter Summary ---
Demographics + + + | Address | [address] | | | [place] [address] | + + + | Home Phone [...] | Author | [facility] | | | and [place] | + + + | Organization | [facility] | | [...] | | | | | [place] [address] | | + + + + + | Valentín Saleh | ECON | [address] | | | | | [place] [address] | | + + + + + | Roberto Carlos Lennon | LEVI | [place] | | + + + + + Care Team Providers + +------+ + | Care Cuff Turner Machine Operator Name | Role | Phone | + +------+ + PCP | Unavailable | + +------+ + Encounter Details +--------+ + + + + | Date | Type | Department | Care Team | Description | +--------+ + + + + | 09/09/ | Hospital | [facility] | | | | 2006 | Encounter | MED CTR LABORATORY | | | | | | [address] [place] | | | | | | [place] | | | | | | [address] | | | | | | [phone] | | | +--------+ + + + [...]
--- OUTSIDE RECORDS SUMMARY | ~2019-07-24 | XMS | Encounter Summary ---
Demographics + + + | Address | [address] | | | [place] [address] | + + + | Home Phone [...] | Author | [facility] | | | and Clarkeana | + + + | Organization | [facility] | [...] | | | | | [place] [address] | | + + + + + | Valentín Saleh | ECON | [address] | | | | | [place] [address] | | + + + + + | Roberto Carlos Lennon | LEVI | Unknown | | + + + + + Care Team Providers + +------+ + | Care Automotive Professional Name | Role | Phone | [...] Refill | | 2015 | | MEDICINE [facility] | [address] | | | | | [facility] | [address], | | | | | [place] [address] | [place] [address] | | | | | [phone] | [phone] | | | | | | | [...]
--- OUTSIDE RECORDS SUMMARY | ~2019-07-24 | XMS | Encounter Summary ---
Demographics + + + | Address | [address] | | | [place] [address] | + + + | Home Phone [...] | Author | [facility] | | | and Clarkeana | + + + | Organization | [facility] | [...] | | | | | [place] [address] | | + + + + + | Valentín Saleh | ECON | [phone] | | | | | [place] [address] | | + + + + + | Roberto Carlos Lennon | LEVI | Unknown | | + + + + + Care Team Providers + +------+ + | Care Harp Regulator Name | Role | Phone | + +------+ + | Francois Pascal MD | PCP | | + +------+ + Encounter Details +--------+ + + + + | Date | Type | Department | Care Team | Description | +--------+ + + + + | 07/03/ | Patient | [facility] | Francois Pascal, | | | 2019 | Outreach | MEDICINE [facility] | [address] | | | | | [address] | [address], | | | | | [place] | [place] [address] | | | | | [address] | [phone] | | | | | [phone] | | | +--------+ + + + [...] 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
--- OUTSIDE RECORDS SUMMARY | ~2019-07-24 | XMS | Encounter Summary ---
Demographics + + + | Address | [address] | | | [place] [address] | + + + | Home Phone [...] | Author | [facility] | | | and Clarkeana | + + + | Organization | [facility] [...] | | | | | [place] [address] | | + + + + + | Valentín Saleh | ECON | [address] | | | | | [place] [address] | | + + + + + | Roberto Carlos Lennon | LEVI | Unknown | | + + + + + Care Team Providers + +------+ + | Care Weigher Bulker Name | Role | Phone | + +------+ + | Francois Pascal MD | PCP | | + +------+ + Reason for Visit + + + | Reason | Comments | + + + | Ankle Pain | left ankle pain | + + + Encounter Details +--------+---------+ + + + | Date | Type | Department | Care Team | Description | +--------+---------+ + + + | 07/09/ | Office | [facility] | Glenn Miramontes | Chronic pain of left | | 2016 | Visit | PHYSIATRY [address] | MD [address] | ankle (Primary Dx); | | | | [address] | [address] [place] | Post-traumatic | | | | [place] | [id number] | osteoarthritis of | | | | [address] | | left ankle | | | | [phone] | | | +--------+---------+ + + + [...] + + + | Blood Pressure | 126/63 | 07/10/2015 11:41 AM | | | | | PDT | | + + + + + | Pulse | 59 | 07/10/2015 11:41 AM | | | [...] Weight | 68 kg (150 lb) | 07/10/2015 11:41 AM | | | | | PDT | | + + + + + | Height | 162.6 cm (5' 4") | 07/10/2015 11:41 AM | | | | | PDT | | + + + + + | Body Mass Index | 25.75 | 07/10/2015 11:41 AM | | | | | PDT | | + + + + + documented in this encounter Patient Instructions Patient Instructions Lashawn Wyman CMA - 07/10/2015 11:59 AM PDT Follow-up at the hospital thirty minutes before your scheduled procedure to allow for time to check in. You may eat and drink as usual on the day of the procedure. If you are scheduled for an epidural injection do not take any blood thinning medications f or at least 5-7 days prior to your procedure unless you have been instructed by another phys ician not to discontinue blood thinning medications. If you are having a procedure other than an epidural injection (i.e. facet injection, media l branch block, SI joint injection or other joint injection) it is not absolutely necessary to discontinue blood thinning medications but doing so will decrease the risk of bruising or bleeding. If you have had a prior stroke, DVT or PE or if you are taking blood thinning medication be cause you have atrial fibrillation, a prosthetic cardiac valve replacement or heart stenting do not stop taking your blood thinning medications unless you have permission from your car diologist or primary care provider. All other medications should be taken as usual on the day of the procedure. Common blood thinning medications include: Aspirin (a baby aspirin is o.k.) Ibuprofen (Advil or Motrin) Naproxen (Aleve) Nabumetone (Relafen) Clopidogrel (Plavix) Dipyridamole/ASA (Aggrenox) Warfarin (Coumadin) Dabigatran (Pradaxa) Rivaroxaban (Xarelto) There are many others. If you have questions about your medications and whether or not you should stop any medications please contact our office. If you are having an epidural injection or if you take any medication for relaxation/sedati on on the day of the procedure you must provide a wood pile driver operator to take you home. For all procedur es it is recommended that someone else drive you home. documented in this encounter Progress Notes Glenn Miramontes MD - 07/10/2015 11:48 AM PDT CHIEF COMPLAINT: Chief Complaint Patient presents with Ankle Pain left ankle pain HISTORY OF PRESENT ILLNESS: The patient is a 84 y.o. female being seen today in follow up for complaints of left ankle pain that began 6 years ago when she broke her ankle. The patie nt states she was at her doctors office when she was stepping off the exam table and slipped and fell. She did go on to have an ORIF and then a second surgery to go in and remove the f ibular plate and screws. Unfortunately she has continued to have pain and discomfort in gerber t ankle and foot since that time. The last time she was seen in my office I recommended an i ntraarticular ankle injection (tibiotalar joint) which was performed by me on 08/02/2014 tiffanie reed the patient states provided her with significant relief from one month. The patient did al so have a subtalar injection which was performed by me in 2010. The patient does not recall if this injection was helpful but per my prior notes this injection did not provide much rel ief. Her symptoms worsen with any standing or walking. Her symptoms improve with use of an ankle brace and with the prior injection. Unfortunatel y the prior brace that she used to use has become stretched out and is no longer as useful b ut she does still wear it if she is going to be more active. Since the symptoms began she reports the symptoms have been constant or worsening. She desc ribes the pain as a aching, numbing and throbbing feeling. She rates the pain as moderate to severe. The patient does not describe numbness. She does report weakness of the left ankle. Treatments for these complaints have included physical therapy,ankle surgery in 2009 as wel l as the use of an ankle brace which was helpful but is stretched out now. A review of her record also shows a subtalar joint injection in 2010 that reportedly did not help much. Patient's medications, allergies, past medical, surgical, social and family histories were reviewed and updated as appropriate. 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 Myocardial infarction ([facility]) (1994&1996) CAR with Hx of Myocardial infarction Other abnormal clinical finding Verebral Compression Fractures Glossitis CAD (coronary artery disease) CHF (congestive heart failure) ([facility]) Arthritis Old [place] (myocardial infarction) Carotid stenosis H/O ventricular septal defect repair DVT (deep vein thrombosis) in Chronic kidney disease, stage III (moderate) Vitamin D deficiency Osteoporosis OSTEOARTHRITIS, ANKLE, LEFT 01/21/2010 Squamous carcinoma 12/05/2012 Left ankle pain 07/30/2014 PAST SURGICAL HISTORY: Past Surgical History Procedure Laterality Date Coronary artery bypass graft 1996 Grafting for Coronary Artery Bypass x 3 vessels and VSD Patch Cholecystectomy 1987 Previous inferior vena cava filter Cataract removal 2007 OU Hiatal hernia repair 1985 Orif left ankle unstable trimalleolar fracture dislocation 03/24/2009 Breast biopsy Left 1974 CURRENT MEDICATIONS: Current Outpatient Prescriptions Medication Sig Dispense Refill [...] as needed for Pain. 30 tablet 0 No current facility-administered medications for this visit. ALLERGIES: Allergies Allergen Reactions Codeine Sulfate Nausea And Vomiting Darvon Nausea Only Estrogens Patient can't remember Pneumococcal Vaccines Other (See Comments) Thinks it was a Prevnar, arm became red/sore/swollen SOCIAL HISTORY: The patient reports that she has never smoked. She has never used smokeless tobacco. She r eports that she does not drink alcohol or use illicit drugs. FAMILY HISTORY: Family History Problem Relation Age of Onset Heart attack Mother possible VSD Heart disease Mother Other (see comment) Father pneumonia Other (see comment) Other family history of Whitfield's Disease Heart disease Sister Kidney disease Neg Hx REVIEW OF SYSTEMS: GENERALLY: No fever, chills, no night sweats, no weight gain, no weight loss, no anemia, no fatigue. EYES: No eye problems, no impaired sight, + eye glasses/contacts, no eye injury, no double vision, no transient blindness. EARS, NOSE, THROAT and MOUTH: No change in sense taste/smell, no hearing difficulty, no ri nging in ears, no drainage from ears, no ear injury, no dizziness, no voice change, no diffi culty swallowing, no snoring, no sleep apnea/CPAP, no sinus trouble, no dental work. NEUROMUSCULAR: No numbness/pain of arms, no numbness/pain of legs, no awake with numbness/ pain, no weakness, no muscle aching, no coordination difficulty, no change in walk, no head injury, no neck injury, no back injury, no pain in neck, no pain in back, no stroke, no letha ting spells, no loss of consciousness, no tremor/shaking, no seizures, no headaches, no migr aines, no memory loss, no speech difficulty, no confusion, no numbness of face. PSYCHIATRIC: No depression, no difficulty sleeping, no anxiety, no bipolar disorder. CARDIOVASCULAR/PULMONARY: + heart attack, no heart murmur, no fluttering heart, no shortne ss of breath, no cough, no Tuberculosis, no chest pain, no swelling ankles, no bloody coughi ng, no asthma, no COPD/emphysema. GASTROINTESTINAL: No bowel disease, no nausea/vomiting, no rectal bleeding/hemorroids, no constipation, no fecal/stool incontinence, no liver/gallbladder disease, no abdominal pain. GENITOURINARY: No frequent urination, no painful/difficult urination, no urinary incontinen ce, no bladder problems. ENDOCRINE: + diabetes, no thyroid disease, no osteoporosis/osteopenia, no drainage from kalyani asts. INTEGUMENTARY/SKIN: No lump in breasts, no skin disease or skin changes, no rash/itch. HEMATOLOGIC: No enlarged lymph nodes, no easy or unusual bleeding, no cancer. RHEUMATOLOGIC: + joint pain/arthritis, no rheumatoid arthritis PHYSICAL EXAMINATION: Blood pressure 126/63, pulse 59, height 1.626 m (5' 4"), weight 68.04 kg (150 lb), not curr ently . Body mass index is 25.73 kg/(m^2). GENERAL: The patient is well developed and well nourished. She does not appear uncomfortab le when seated. HEENT: HEAD/FACE: EYES: Normocephalic and atraumatic. There are no areas of recent trauma. Normal sclerae without icterus. SKIN Limited skin exam shows no significant rashes or lesions. There are surgical scars on the left ankle. CHEST: The patient is in no acute respiratory distress with unlabored respirations. HEART: There is not lower extremity edema. ABDOMEN: The patient is not overweight. NEUROLOGIC: The patient is awake, alert, and oriented to time, place, person. She follows simple and complex commands. Her speech is fluent. She comprehends speech well. She has no apparent deficits with short or terminal clerk memory. She has appropriate fund of knowledge Cranial nerves 2-12 appear grossly intact. Sensory exam does not show diminished sensation to light touch in the upper and lower extre mities. MUSCULOSKELETAL She had diffuse tenderness around the left ankle joint. She had moderate l oss of motion with dorsiflexion and plantarflexion on the left as compared to the right. Sh e localizes some pain into the foot but did not have tenderness over the plantar fascia or i nsertion points. There was no fallen arch or other obvious structural abnormality. RADIOGRAPHIC REVIEW: The patient's imaging was reviewed in detail with the patient today during the visit. The images include x-rays of the right ankle from 2010 which show two screws still in the distal aspect of the medial malleolus. There was moderate degeneration of the tibiotalar joint at that time. More recent x-rays of the left ankle performed in 2014 show severe degeneration of the tibiotalar joint. ASSESSMENT: Encounter Diagnoses Name Primary? Chronic pain of left ankle Yes Post-traumatic osteoarthritis of left ankle PLAN: 1. The patient reports relief with a prior intraarticular ankle injection (tibiotalar joint ) and is requesting a repeat intraarticular ankle injection. I did feel that would be appro priate and this will be scheduled and performed using fluoroscopic guidance. 2. The patient was encouraged to wear the brace after the injection which I feel may help prolong the effects of the procedure. 3. The patient may be a candidate for a surgical fusion of the tibiotalar joint but she is not interested in pursuing that option at this point. ELECTRONICALLY EDITED AND SIGNED BY: Glenn Miramontes MD, 07/10/2015 Scribed by: Lashawn Wyman MA for Dr. Glenn Miramontes on 07/30/2014 documented in this encounter Plan of Treatment Not on filedocumented as of this encounter Results FL Major Joint Injection Left (07/15/2015 4:10 PM PDT) + + | Specimen | + + | | + + + + + | Narrative | Performed At | + + + | 07/15/2015 LEFT INTRAARTICULAR ANKLE INJECTION CLINICAL HISTORY: | [facility] | | CHRONIC LEFT ANKLE PAIN AND POST-TRAUMATIC ARTHRITIS Alyson Leyva | [facility] | | Saji presents to the fluoroscopy suite for a | [facility] | | fluoroscopically-guided left intraarticular ankle injection [...] of 40 mg/mL Kenalog and 2 mL 0.5% | | | ropivacaine was infused. The patient tolerated the procedure well | | | without complications. Pre- and post-procedure blood pressures were | | | stable. The patient was [...] | [address] | [place] | [phone] | | [facility] | | [address] | | | - IMAGING | | | | + + + + + documented in this encounter Visit Diagnoses + + | Diagnosis | + + | Chronic pain of left ankle - Primary | + + | Post-traumatic osteoarthritis of left ankle | + + documented in this encounter
--- OUTSIDE RECORDS SUMMARY | ~2019-07-24 | XMS | Encounter Summary ---
Demographics + + + | Address | [address] | | | [place] [address] | + + + | Home Phone | | + + + | Preferred Language | Unknown | + + + | Marital Status | | + + + | Orthodoxy Affiliation | Unknown | + + + | Race | Unknown | + + + | Ethnic Group | Unknown | + + + Author + + + | Author | [facility] | | | and Clarkeana | + + + | Organization | [facility] | | | and [...] | | | | | [place] [address] | | + + + + + | Valentín Saleh | ECON | [address] | | | | | [place] [address] | | + + + + + | Roberto Carlos Lennon | LEVI | Unknown | | + + + + + Care Team Providers + +------+ + | Care Handtools Repairer Name | Role | Phone | + +------+ + | Francois Pascal MD | PCP | | + +------+ + Reason for Visit + + + | Reason | Comments | + + + | SNF Discharge | | + + + Encounter Details +--------+ + + + + | Date | Type | Department | Care Team | Description | +--------+ + + + + | 10/13/ | Telephone | [facility] | Francois Pascal, | SNF Discharge | | 2019 | | MEDICINE [place] | [address] | | | | | [address] | [address], | | | | | [place] | [place] [address] | | | | | [address] | [phone] | | | | | [phone] | | | +--------+ + + + [...]
--- OUTSIDE RECORDS SUMMARY | ~2019-07-24 | XMS | Encounter Summary ---
Demographics + + + | Address | [address] | | | [place] [address] | + + + | Home Phone [...] Author | [facility] | | | and Clarkeana | + + + | Organization | [facility] | [...] | | | | | [place] [address] | | + + + + + | Valentín Saleh | ECON | [phone] | | | | | [place] [address] | | + + + + + | Roberto Carlos Lennon | LEVI | Unknown | | + + + + + Care Team Providers + +------+ + | Care Robotics Technician Name | Role | Phone | [...] | disease, | [address] | AUTOMATION MACHINE BUILDER [address] | | | | | stage 3 | [place] | [address], | | | | | (moderate) | [place] | [address] | | | | | (HCC) | [address] | [place], | | | | | Hypertension | Phone: | [place] [address] | | | | | , renal | [phone] | Phone: | | | | | disease | Fax: | [phone] | | | | | Procedures | [phone] | Fax: | | | | | [facility] OFFICE | | [phone] | | | | | OUTPATIENT | | | | | | | VISIT 25 | | | | | | | MINUTES | | | +--------+--------+ + + + + Encounter Details +--------+---------+ + + + | Date | Type | Department | Care Team | Description | +--------+---------+ + + + | 04/07/ | Office | [facility] [place] | [place], | CHRONIC KIDNEY | | 2018 | Visit | NEPHROLOGY [address] | [address] | DISEASE STAGE III | | | | [address] | [address], [place] | (MODERATE) (Primary | | | | [place], [place] | [address] | Dx); Hypertension, | | | | [address] | [address] | renal disease; | | | | [phone] | | Uncontrolled type 2 | | | | | | diabetes mellitus | | | | | | with diabetic | | | | | | nephropathy, | | | | | | unspecified long | | | | | | term insulin use | | | | | | status ([facility]) | +--------+---------+ + + + Social History [...] + + + | Blood Pressure | 100/56 | 04/07/2017 1:58 PM | | | | | PST | | + + + + + | Pulse | 54 | 04/07/2017 1:58 PM | | | | | PST | | + + + + + | Temperature | - | - | | + + + + + | Respiratory Rate | - | - | | + + + + + | Oxygen Saturation | 97% | 04/07/2017 1:58 PM | | | | | PST | | + + + + + | Inhaled Oxygen | - | - | | | Concentration | | | | + + + + + | Weight | 64 kg (141 lb) | 04/07/2017 1:58 PM | | | | | PST | | + + + + + | Height | - | - | | + + + + + | Body Mass Index | 22.76 | 02/01/2017 12:32 PM | | | [...] documented as of this encounter Progress Notes KatrinaKemar, AUTOMATION MACHINE BUILDER - 04/07/2017 1:45 PM PSTFormatting of this note might be diff erent from the original. Nephrology Follow-up Visit Visit date: 04/07/2017 Primary care provider: Francois Pascal MD Follow-up type: 6 months HPI: Alyson Lennon is a 86 y.o. 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 -type 2 diabetes mellitus with neuropathy -hypertension -CAD with CABG x [address] Corado -serum creatinine has fluctuated from 1.1-1.4 mg/dl since 2010, infrequently 1.6-1.7 mg/dl; currently 0.8-0.9 mg/dl Alyson is here with her Sigrid. She fell in July and fractured left hip. Since then hope s been at [facility] for rehab. She is ambulating with a walker at care facility. She is not sure what her blood pressure has been recently. No lightheadedness or dizziness. Has not recovered enough to go home. ROS: Reports increased fatigue for several months; Caregiver reports trouble breathing at t imes: edema in left leg; Urinary frequency. Denies anorexia, chest pain, dyspnea, orthopnea , nausea, vomiting, dysuria, hematuria. PMH: Patient Active Problem List Diagnosis Date Noted DM (diabetes mellitus) ([facility]) 12/27/2011 Priority: High Glossitis Priority: High Hyperlipidemia, mixed Priority: High CHRONIC KIDNEY DISEASE STAGE III (MODERATE) Priority: High OSTEOARTHRITIS, ANKLE, LEFT 01/21/2010 Priority: High Gout, unspecified 01/21/2010 Priority: Medium Note Last Updated: 12/07/2014 ICD-10 Record update S/p left hip fracture 11/11/2016 Mild dementia 11/11/2016 Dementia due to Alzheimer's disease 09/09/2016 Confusion [...] without loss of consciousness, unspecified laterality, sequela ([facility]) 10/21/2014 Transient alteration of awareness 10/17/2014 Head contusion, initial encounter 10/17/2014 Note Last Updated: 01/08/2015 Problem list 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 Left ankle pain 07/30/2014 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 Note Last Updated: 12/16/2015 Problem list 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 Preventative health care 03/23/2012 Note Last Updated: 09/27/2012 CRSC:03/23/2002normal except for redundancy and atonicity Next Due: Mammo:03/02/2012 benign Next:03/02/2013 Pap:03/24/2009 negative Next: CAROTID STENOSIS AMAUROSIS FUGAX DEMYELINATING DISEASE, CENTRAL NERVOUS SYSTEM FRACTURE, ANKLE, LEFT VITAMIN D DEFICIENCY Hypertension, renal disease DM type 2, uncontrolled, with renal complications (HCC) Coronary artery disease involving [place] coronary artery of [place] heart without angina pectoris Note Last Updated: [...] Outpatient Prescriptions Marked as Taking for the 04/07/17 encounter (Office Visit) with LAURO Hauser Medication Sig Dispense Refill acetaminophen (TYLENOL) 325 [...] rectally Daily as needed for Constipation. 0 Syohwsu-Xlbgbcfmu-Qphdypr D (CALCIUM 500 PO) Take 1 tablet [...] tablet Take 1 tablet by mouth Daily. (Patient taking differ ently: Take 15 mg by mouth Daily.) 40 tablet 0 sodium phosphate (FLEET) enema Place 133 mLs rectally Daily as needed for Constipation. Allergies Allergen Reactions Codeine Sulfate Nausea And Vomiting Darvon Nausea Only Estrogens Patient can't remember Pneumococcal Vaccines Other (See Comments) Thinks it was a Prevnar, arm became red/sore/swollen Physical Exam: BP 100/56 | Pulse 54 | Wt 64 kg (141 lb) | SpO2 97% | BMI 22.76 kg/m Constitutional: Appears chronically ill, wheelchair bound. No distress. ENT: Oropharynx is clear and oral mucosa is moist. Cardiovascular: Normal rate, regular rhythm and normal heart sounds. 2/6 systolic murmur. No gallop and no friction rub. No JVD. Trace-1+ edema below knees. Lungs: Diminished in bases. Respiratory effort normal. No crackles or wheezes. Abdominal: Soft. Bowel sounds are present. No distension or tenderness. Musculoskeletal: No joint swelling. No muscle tenderness. Skin: Skin is warm. Scabbed lesions on face, pt picking at lesions. Neurological: Alert. Memory intact. Reviewed labs with patient. Lab Requisition on 04/06/2017 Component Date Value Ref Range Status WBC 04/06/2017 11.4* 4.0 - 11.0 K/uL Final RBC 04/06/2017 3.71 3.70 - 5.20 M/uL Final Hgb 04/06/2017 12.0 11.5 - 16.0 g/dL Final Hct 04/06/2017 37.5 34.0 - 47.0 % Final MCV 04/06/2017 101.0 83.0 - 101.0 fL Final MCH 04/06/2017 32.5 28.0 - 35.0 pg Final MCHC 04/06/2017 32.1 32.0 - 36.0 g/dL Final RDW-CV 04/06/2017 15.5* <15.0 % Final Platelet Count 04/06/2017 231 140 - 440 K/uL Final MPV 04/06/2017 9.5 fL Final % Neutrophils 04/06/2017 63.8 45.0 - 82.0 % Final % Lymphocytes 04/06/2017 23.3 20.0 - 45.0 % Final % Monocytes 04/06/2017 7.9 4.0 - 12.0 % Final % Eosinophils 04/06/2017 4.3 0.0 - 5.0 % Final % Basophils 04/06/2017 0.7 0.0 - 1.0 % Final Absolute Neutrophils 04/06/2017 7.30 1.80 - 8.50 K/uL Final Absolute Lymphocytes 04/06/2017 2.70 0.60 - 3.20 K/uL Final Absolute Monocytes 04/06/2017 0.90 0.00 - 1.00 K/uL Final Absolute Eosinophils 04/06/2017 0.50* 0.00 - 0.40 K/uL Final Absolute Basophils 04/06/2017 0.10 0.00 - 0.10 K/uL Final NA 04/06/2017 133* 136 - 149 mmol/L Final K 04/06/2017 4.2 3.5 - 5.1 mmol/L Final CL 04/06/2017 97* 98 - 109 mmol/L Final CO2 04/06/2017 29 24 - 31 mmol/L Final ANION GAP 04/06/2017 7 3 - 16 mmol/L Final GLUCOSE 04/06/2017 283* 70 - 109 mg/dL Final BUN 04/06/2017 25* 7 - 18 mg/dL Final Creatinine, Serum/Plasma 04/06/2017 0.91 0.60 - 1.30 mg/dL Final eGFR if not 04/06/2017 59* >=60 mL/min/1.73m2 Final CALCIUM 04/06/2017 8.7 8.3 - 10.5 mg/dL Final ALBUMIN 04/06/2017 3.0* 3.2 - 5.0 g/dL Final PHOSPHORUS 04/06/2017 3.0 2.5 - 4.6 mg/dL Final BUN/CREA 04/06/2017 27.5 Final Lab Requisition on 04/06/2017 Component Date Value Ref Range Status PROTEIN,RANDOM URINE 04/06/2017 83* <6 mg/dL Final Creatinine, Urine, Random 04/06/2017 86 mg/dL Final PRO/CREA RATIO,URINE 04/06/2017 0.97* <0.20 mg/mg Final Microalbumin, Urine, Random 04/06/2017 60.8* <1.8 mg/dL Final Creatinine, Urine, Random 04/06/2017 86 mg/dL Final Microalbumin/Creatinin ratio 04/06/2017 707* <30 mg/g Final ASSESSMENT AND PLAN: ICD-10-CM ICD-9-CM 1. CHRONIC KIDNEY DISEASE STAGE III (MODERATE) N18.3 585.3 -kidney function is stable -sub nephrotic range proteinuria -electrolytes are stable -avoid prolonged hypotension to allow for adequate renal perfusion; BP has been low normal at last two visits -avoid nephrotoxins -stay hydrated 2. Hypertension, renal disease I12.9 403.90 BP low normal. Edema is stable per patient. -decrease metoprolol to 100 mg daily -check BP x 2 weeks then notify office -follow up if edema is increasing 585.9 3. 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, unspecified fci i nsulin use status ([facility]) E11.21 250.42 Continue follow up with primary care for management. E11.65 583.81 Return in about 6 months (around 10/05/2017). Labs: renal panel, Hb A1c, PTH, vitamin D 25 OH Patient verbalized agreement and understanding of above plan. 25 minutes spent face to face with patient with greater than 50% of time in counseling, edu cation and coordination of care as noted above. CC: Francois Pascal MD [facility] documented i n this encounter Plan of Treatment Not on filedocumented as of this encounter Visit Diagnoses + + | Diagnosis | + + | CHRONIC KIDNEY DISEASE STAGE III (MODERATE) - Primary Chronic kidney disease, Stage | | III (moderate) | + + | Hypertension, renal disease Unspecified hypertensive kidney disease with chronic | | kidney disease stage I through stage IV, or unspecified | + + | 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, unspecified terminal clerk | | insulin use status | + + documented in this encounter
--- OUTSIDE RECORDS SUMMARY | ~2019-07-24 | XMS | Encounter Summary ---
Demographics + + + | Address | [address] | | | [place] [address] | + + + | Home Phone [...] + + | Author | [facility] | | | and Clarkeana | + + + | Organization | [facility] | [...] | | | | | [place] [address] | | + + + + + | Valentín Saleh | ECON | [phone] | | | | | [place] [address] | | + + + + + | Roberto Carlos Lennon | LEVI | Unknown | | + + + + + Care Team Providers + +------+ + | Care Culture Room Worker Name | Role | Phone | [...] Description | +--------+--------+ + + + | 12/29/ | Refill | [facility] | Francois Pascal, | Medication Refill | | 2012 | | [facility] [place] | [address] | | | | | [address] | [address] [place], | | | | | [place] | [place] [address] | | | | | [address] | [phone] | | | | | [phone] | | | +--------+--------+ + + + [...]
--- OUTSIDE RECORDS SUMMARY | ~2019-07-24 | XMS | Encounter Summary ---
Demographics + + + | Address | [address] | | | [place] [address] | + + + | Home Phone [...] | [facility] | | | and Clarkeana | + + + | Organization | [facility] | [...] | | | | | [place] [address] | | + + + + + | Valentín Saleh | ECON | [phone] | | | | | [place] [address] | | + + + + + | Roberto Carlos Lennon | LEVI | [place] | | + + + + + Care Team Providers + +------+ + | Care Cargo Inspector Name | Role | Phone | + +------+ + PCP | Unavailable | + +------+ + Encounter Details +--------+ + + + + | Date | Type | Department | Care Team | Description | +--------+ + + + + | 02/24/ | Hospital | [facility] | Francois Pascal, | | | 2008 | Encounter | MED CTR LABORATORY | [address] | | | | | [address] [place] | [address], | | | | | [place] | [place] [address] | | | | | [address] | [phone] | | | | | [phone] | | | +--------+ + + + [...]
--- OUTSIDE RECORDS SUMMARY | ~2019-07-24 | XMS | Encounter Summary ---
Demographics + + + | Address | [address] | | | [place] [address] | + + + | Home Phone [...] | Author | [facility] | | | and Clarkeana | + + + | Organization | [facility] | | | and [...] | | | | | [place] [address] | | + + + + + | Valentín Saleh | ECON | [phone] | | | | | [place] [address] | | + + + + + | Roberto Carlos Lennon | LEVI | [place] | | + + + + + Care Team Providers + +------+ + | Care Violin Tutor Name | Role | Phone | + +------+ + PCP | Unavailable | + +------+ + Encounter Details +--------+ + + + + | Date | Type | Department | Care Team | Description | +--------+ + + + + | 06/16/ | Hospital | [facility] | | | | 1996 - | Encounter | MED CTR ICU [address] | | | | | | [place], | | | | [birth year]/ | | [place] [address] | | | | 1996 | | [phone] | | | +--------+ + + + [...]
--- OUTSIDE RECORDS SUMMARY | ~2019-07-24 | XMS | Encounter Summary ---
Demographics + + + | Address | [address] | | | [place] [address] | + + + | Home Phone [...] | Author | [facility] | | | and Clarkeana | + + + | Organization | [facility] | [...] | | | | | [place] [address] | | + + + + + | Valentín Saleh | ECON | [phone] | | | | | [place] [address] | | + + + + + | Roberto Carlos Lennon | LEVI | Unknown | | + + + + + Care Team Providers + +------+ + | Care Helicopter Crew Chief Name | Role | Phone | + +------+ + | Francois Pascal MD | PCP | | + +------+ + Encounter Details +--------+ + + + + | Date | Type | Department | Care Team | Description | +--------+ + + + + | 06/03/ | Hospital | [facility] | [place], | CHRONIC KIDNEY | | 2015 | Encounter | MED CTR LABORATORY | [address] | DISEASE STAGE III | | | | [address] | [address] [facility] | (MODERATE); | | | | [place], [place] | [address] [place], [place] | HYPERTENSION NEC; | | | | [address] | [address] | Type 2 diabetes | | | | [phone] | | mellitus with | | | [...] + | [facility] | [address] | [place] | [phone] | | [facility] | | [address] | | | - LABORATORY | | | | + + + + + CBC with Differential (06/03/2014 9:23 AM PDT) + + + + + + | Component | Value | Ref Range | Performed | Pathologist | | | | | At | Signature | + + + + + + | WBC | 9.6 | 4.0 - 11.0 K/uL [...] ST. | [address] | [place], [place] | [phone] | | [facility] | | [address] | | | - LABORATORY | | [...] not | 45 (L)Comment: | >=60 | [facility] | | | | GLOMERULAR FILTRATION | mL/min/1.73m2 | [facility] | | | [place] | RATE,ESTIMATED | | MEDICAL | | | | mL/min/1.26g8Cavm than | | CENTER - | | [...] | | | | | mg/dL | [facility] | | | | [...] + + | [facility] | [address] | [place] | [phone] | | [facility] | | [address] | | | - LABORATORY | | [...]
--- OUTSIDE RECORDS SUMMARY | ~2019-07-24 | XMS | Encounter Summary ---
Demographics + + + | Address | [address] | | | [place] [address] | + + + | Home Phone | | + + + | Preferred Language | Unknown | + + + | Marital Status | | + + + | Latter-Day Affiliation | Unknown | + + + | Race | Unknown | + + + | Ethnic Group | Unknown | + + + Author + + + | Author | [facility] | | | and Clarkeana | + + + | Organization | [facility] | [...] | | | | | [place] [address] | | + + + + + | Valentín Saleh | ECON | [address] | | | | | [place] [address] | | + + + + + | Roberto Carlos Lennon | LEVI | [place] | | + + + + + Care Team Providers + +------+ + | Care Inspector Motor Vehicles Name | Role | Phone | + +------+ + PCP | Unavailable | + +------+ + Encounter Details +--------+ + + + + | Date | Type | Department | Care Team | Description | +--------+ + + + + | 03/20/ | Hospital | [facility] | Gal Mejia, | | | 2007 | Encounter | MED CTR XRAY [address] | [address] [facility] | | | | | [place] | [place] [address] | | | | | [place] [address] | [id number] | | | | | [phone] | | | +--------+ + + + [...]
--- OUTSIDE RECORDS SUMMARY | ~2019-07-24 | XMS | Encounter Summary ---
Demographics + + + | Address | [address] | | | [place] [address] | + + + | Home Phone [...] | Author | [facility] | | | and Clarkeana | + + + | Organization | [facility] | | | and [...] | | | | | [place] [address] | | + + + + + | Valentín Saleh | ECON | [phone] | | | | | [place] [address] | | + + + + + | Roberto Carlos Lennon | LEVI | Unknown | | + + + + + Care Team Providers + +------+ + | Care Assistant Manager Pt Name | Role | Phone | + [...] + | 10/10/ | Office | [facility] | Francois Psacal, | Essential | | 2019 | Visit | [facility] [place] | [address] | hypertension | | | | [address] | [address] [place] [address], | (Primary Dx); | | | | [place] | [place] [address] | Dementia due to | | | | [address] | [phone] | Alzheimer's disease; | | | | [phone] | | CHRONIC KIDNEY | | | [...] updated as appropriate. Alyson is moving from [facility] to [facility], [facility] HTN, CAD, Afib on xarelto, Followed by [...] VSD Father 50 Pneumonia Family Hx of [place]'s chorea Sister and 2 brothers: CAD, Airam's Disease to Sigrid - with 2 Healthy Children No kidney disease in family. Social History: Born in [facility] for 46 years. and Remarried 2 [...] in this encounter Plan of Treatment + +------+--------+ + + | Name | [...] + + + + + | YANE | [address] | [place] | [phone] | | [facility] | | [address] | | | [facility] | | [...]
--- OUTSIDE RECORDS SUMMARY | ~2019-07-24 | XMS | Encounter Summary ---
Demographics + + + | Address | [address] | | | [place] [address] | + + + | Home Phone [...] | Author | [facility] | | | and Clarkeana | + + + | Organization | [facility] | [...] | | | | | [place] [address] | | + + + + + | Valentín Saleh | ECON | [address] | | | | | [place] [address] | | + + + + + | Roberto Carlos Lennon | LEVI | Unknown | | + + + + + Care Team Providers + +------+ + | Care Technical Associate Name | Role | Phone | [...] | (ICD-9-CM) - | [place] | [address] | | | | | Gait | [place] | [address] Phone: | | | | | instability | [address] | [phone] | | | | | Procedures | Phone: | Fax: | | | | | [facility] | [phone] | [phone] | | | | | TREATMENT 45 | Fax: | | | | | | | [phone] | | +--------+--------+ + + + + Encounter Details +--------+---------+ + + + | Date | Type | Department | Care Team | Description | +--------+---------+ + + + | 03/17/ | Office | [facility] | Francois Pascal, | Posture imbalance | | 2016 | Visit | MED CTR THERAPY PT | MD [address] | (Primary Dx); | | | | OP [address] | [address] [place], | Impaired functional | | | | [place], [place] | [place] [address] | mobility, balance, | | | | [address] | [phone] | gait, and endurance; | | | | [phone] | | Left ankle pain | | | | | Cheyenne Caballero, | | | | | | DENTAL ASSOCIATE [address] | | | | | | [place], [place] | | | | | | [address] | | | | | | | [...] encounter Progress Notes Cheyenne Caballero PTA - 03/17/2015 12:21 PM PSTFormatting of this note might be different f rom the original. [facility] THERAPY PT OP [address] [place] [address] Physical Therapy Daily Treatment Note Date: 03/17/2015 Patient Information Patient Name: Alyson Lennon Date of : 1930 Age: 84 y.o. Encounter Diagnoses Code Name Primary? R29.3 Posture imbalance Yes Z74.09 Impaired functional mobility, balance, gait, and endurance M25.572 Left ankle pain Date of Onset: 10/24/2014 Referring Provider: Francois Pascal MD Rehab Precautions Office Visit from 12/24/2014 in [facility] THERAPY PT OP Rehab Precautions Precautions [...] and balance training to reduce fall risk- rocker board side to side, fwd/back, diagonal Supine [...]
--- OUTSIDE RECORDS SUMMARY | ~2019-07-24 | XMS | Encounter Summary ---
Demographics + + + | Address | [address] | | | [place] [address] | + + + | Home Phone [...] + | Author | [facility] | | | and Clarkeana | + + + | Organization | [facility] | [...] | | | | | [place] [address] | | + + + + + | Valentín Saleh | ECON | [address] | | | | | [place] [address] | | + + + + + | Roberto Carlos Lennon | LEVI | [place] | | + + + + + Care Team Providers + +------+ + | Care Statistics Professor Name | Role | Phone | + +------+ + PCP | Unavailable | + +------+ + Encounter Details +--------+ + + + + | Date | Type | Department | Care Team | Description | +--------+ + + + + | 10/30/ | Hospital | [facility] | | | | 1999 | Encounter | MED CTR EMERGENCY | | | | | | CENTER [address] | | | | | | [place] | | | | | | [address] | | | | | | [phone] | | | +--------+ + + + [...]
--- OUTSIDE RECORDS SUMMARY | ~2019-07-24 | XMS | Encounter Summary ---
Demographics + + + | Address | [address] | | | [place] [address] | + + + | Home Phone [...] Author | [facility] | | | and [place] | + + + | Organization | [facility] | | [...] | | | | | [place] [address] | | + + + + + | Valentín Saleh | ECON | [address] | | | | | [place] [address] | | + + + + + | Roberto Carlos Lennon | LEVI | Unknown | | + + + + + Care Team Providers + +------+ + | Care Moose Hunter Name | Role | Phone | + +------+ + | Francois Pascal MD | PCP | | + +------+ + Encounter Details +--------+ + + + + | Date | Type | Department | Care Team | Description | +--------+ + + + + | 02/26/ | [facility] | [facility] | Francois Pascal, | ARTHRITIS, CHRONIC | | 2013 | Encounter | [facility] CTR [facility] | [address] | | | | | [address] | [address], | | | | | [place], [place] | [place] [address] | | | | | [address] | [phone] | | | | | [phone] | | | +--------+ + + + [...] +---------+ + + | allopurinol | TAKE 1 TABLET BY | 180 | 1 | 09/24/19 | | | (ZYLOPRIM) 100 mg | MOUTH TWICE DAILY | tablet | | 13 | 4 [...] TABLET BY | 90 | 1 | 12/23/19 | | | tablet | MOUTH EVERY DAY | tablet | | 13 | 4 | + + + +---------+ + + | LANTUS 100 UNIT/ML | INJECT 110 UNITS QS | 50 mL | 1 | 12/30/19 | | | injection | AT BEDTIME | | | 13 | 4 | [...] | 3 | 08/03/19 | | | (PRINIVIL,ZESTRIL) | MOUTH EVERY [...] +---------+ + + | metoprolol | TAKE 1 TABLET BY | 90 | 3 | 09/13/19 | | | (TOPROL-XL) 200 MG | MOUTH EVERY DAY | tablet | | 13 | 4 | | 24 hr tablet | | [...] tablet by | 30 | 6 | 12/29/19 | | | 500 mg CR tablet [...] + | CBC WITH | Routin | 02/26/2013 | ARTHRITIS, CHRONIC | Results for this | | DIFFERENTIAL | e | 10:01 AM | | procedure are in the | | | | PST | | results section. | + +--------+ + + + | COMPREHENSIVE | Routin | 02/26/2013 | ARTHRITIS, CHRONIC | Results for this | | METABOLIC PANEL | e | 10:01 AM | | procedure are in the | | | | PST | | results section. | + +--------+ + + + documented in this encounter Results Comprehensive Metabolic Panel (02/26/2013 [...] 40 (L)Comment: For | >60 mL/min/A | [facility] | | | GFR | -Americans, | [...] + | [facility] | [address] | [place], [place] | [phone] | | [facility] | | [address] | | | - LABORATORY | | | | + + + + + | [facility] | [address] | [place], [place] | | | [facility] | | [address] | | | - [...] + | [facility] | [address] | [place], [place] | [phone] | | [facility] | | [address] | | | - LABORATORY | | | | + + + + + | [facility] | [address] | [place], [place] | | | [facility] | | [id number] | | | - LABORATORY | | | | + + + + + documented in this encounter Visit Diagnoses + + | Diagnosis | + + | ARTHRITIS, CHRONIC Arthropathy, unspecified, site unspecified | + + documented in this encounter"
--- OUTSIDE RECORDS SUMMARY | ~2019-07-24 | XMS | Encounter Summary ---
Demographics + + + | Address | [address] | | | [place] [address] | + + + | Home Phone [...] Author | [facility] | | | and [place] | + + + | Organization | [facility] | | | and [place] | + + + | Address | Unknown | + + + | Phone | Unavailable | + + + Support + + + + + | Name | Relationship | Address | Phone | + + + + + | Sigrid Lennon | ECON | [address] | | | | | [place] [address] | | + + + + + | Valentín Saleh | ECON | [address] | | | | | [place] [address] | | + + + + + | Roberto Carlos Lennon | LEVI | Unknown | | + + + + + Care Team Providers + +------+ + | Care Autotransfusionist Name | Role | Phone | + +------+ + | Francois Pascal MD | PCP | | + +------+ + Encounter Details +--------+ + + + + | Date | Type | Department | Care Team | Description | +--------+ + + + + | 10/15/ | Hospital | [facility] | Francois Pascal, | High risk medication | | 2016 | Encounter | [facility] | [address] | use | | | | [address] [place] | [address], | | | | | [place] | [place] [address] | | | | | [address] | [phone] | | | | | [phone] | | | +--------+ + + + [...] encounter Progress Notes Francois Pascal MD - 10/17/2015 12:37 PM PDT Quick Note: Ok for ma or nurse to notify pt that there may be slight lab abnormalities but that they d o not require follow up prior to next recommended visit but if they would like to discuss th ey can rtc earlier. documented in thi s encounter Plan of Treatment Not on filedocumented as of this encounter Procedures + +--------+ + + + | Procedure Name | Priori | Date/Time | Associated Diagnosis | Comments | | | ty | | | | + +--------+ + + + | CBC WITH | Routin | 10/16/2015 | High risk | Results for this | | DIFFERENTIAL | e | 9:18 AM | medication use | procedure are in the | | | | PDT | | results section. | + +--------+ + + + | COMPREHENSIVE | Routin | 10/16/2015 | High risk | Results for this | | METABOLIC PANEL | e | 9:18 AM | medication use | procedure are in the | | | | PDT | | results section. | + +--------+ + + + documented in this encounter Results CBC with Differential (10/16/2015 9:18 AM PDT) [...] + + + + | RBC | 4.45 | 3.70 - 5.20 | [...] + | [facility] | [address] | [place] | [phone] | | [facility] | | [address] | | | - LABORATORY | | [...] | 1.30 | 0.60 - 1.30 | [facility] | [...] mL/min/1.73m2 | [facility] | | | [facility] | RATE,ESTIMATED | | MEDICAL | | | | mL/min/1.70x9Rgnk than | | CENTER - | | [...] 4.0 | 3.2 - 5.0 g/dL | [facility] [...] [address] | [place] | [phone] | | [facility] | | [address] | | | - LABORATORY | | | | + + + + + documented in this encounter Visit Diagnoses + + | Diagnosis | + + | High risk medication use Encounter for long-term (current) use of other medications | + + documented in this encounter"
--- OUTSIDE RECORDS SUMMARY | ~2019-07-24 | XMS | Encounter Summary ---
Demographics + + + | Address | [address] | | | [place] [address] | + + + | Home Phone [...] | Author | [facility] | | | and [place] | + + + | Organization | [facility] | | | and [place] | + + + | Address | Unknown | + + + | Phone | Unavailable | + + + Support + + + + + | Name | Relationship | Address | Phone | + + + + + | Jennifer Lennon | ECON | [address] | | | | | [place] [address] | | + + + + + | Valentín Saleh | ECON | [address] | | | | | [place] [address] | | + + + + + | Roberto Carlos Lennon | LEVI | Unknown | | + + + + + Care Team Providers + +------+ + | Care Candy Supervisor Name | Role | Phone | + +------+ + | Francois Pascal MD | PCP | | + +------+ + Reason for Visit + + + | Reason | Comments | + + + | Congestive Heart | | | Failure | | + + + | Carotid Artery | | | Disease | | + + + Encounter Details +--------+---------+ + + + | Date | Type | Department | Care Team | Description | +--------+---------+ + + + | 03/02/ | Office | [facility] | Stephenie Paul, | CAD (coronary artery | | 2012 | Visit | CARDIOLOGY [address] | [address] [facility] | disease) (Primary | | | | [place], | [place], | Dx); Hypertension; | | | | [place] [address] | [place] [address] | Hyperlipidemia | | | | [phone] | [phone] | | | | | | | [...] + + + | Blood Pressure | 136/80 | 03/02/2013 9:33 AM | left arm | | | | PST | | + + + + + | Pulse | 64 | 03/02/2013 9:33 AM | regular | | | | PST | | + + + + + | Temperature | - | - | | + + + + + | Respiratory Rate | 16 | 03/02/2013 9:33 AM | | | | | PST | | + + + + + | Oxygen Saturation | - | - | | + + + + + | Inhaled Oxygen | - | - | | | Concentration | | | | + + + + + | Weight | 75.8 kg (167 lb) | 03/02/2013 9:33 AM | | | | | PST | | + + + + + | Height | - | - | | + + + + + | Body Mass Index | 30.06 | 03/01/2013 10:05 AM | | | | | PST | | + + + + + documented in this encounter Progress Notes Gavi Oshea, Master of Arts - 03/02/2013 10:01 AM PSTFormatting of this note might be di fferent from the original. Subjective: Cardiology Office Visit Date of Service: 03/02/2013 Patient ID: Alyson Lennon is a 82 y.o. female. PCP: Francois MCINTYRE Alyson Lennon is a 82-year-old female with an extensive history of CAD, history of hypertensio n, hyperlipidemia, and type 2 diabetes. She is being seen today for a treatment of her CAD. She was last seen on 08/11/11 at which time increasing physical activity was recommended. Si nce that time,patient continues to experience a left ankle pain which prevents her from walk ing at the longer distance. She can walk a short distance inside the house and to the car. She admits that her physical activities is somewhat limited. However, she denies any speci fic cardiac complaints. There is no chest pain or chest discomfort both at rest and on exer tion. Patient denies shortness of breath. There is no palpitation dizziness or lightheaded ness. There is no ankle or leg swelling. Patient can sleep on one pillow at night without difficulty breathing. She reports a good energy level. Patient Active Problem List Diagnosis CAROTID STENOSIS AMAUROSIS FUGAX DEMYELINATING DISEASE, CENTRAL NERVOUS SYSTEM FRACTURE, ANKLE, LEFT Gout, unspecified OSTEOARTHRITIS, ANKLE, LEFT FATIGUE RENAL INSUFFICIENCY HYPERTENSION NEC VIRAL URI HYPERTRIGLYCERIDEMIA VITAMIN D DEFICIENCY HTN CKD UNS W/CKD STAGE I THRU STAGE IV/UNS DIABETES MELLITUS, TYPE II, CONTROLLED, WITH COMPLICATIONS GLOSSITIS CAD Hyperlipidemia AMI - ANTEROSEPTAL 1994 CONGESTIVE HEART FAILURE ECHO 03/04/09, LVEF 65% VSD - 1994 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 THROMBOPHLEBITIS CHRONIC KIDNEY DISEASE STAGE III (MODERATE) ARTHRITIS, CHRONIC DM (diabetes mellitus) 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 Past Surgical History Procedure Date Coronary artery bypass graft 1996 Grafting for Coronary Artery Bypass x 3 vessels and VSD Patch Cholecystectomy 1987 Left brest bi 1975 Previous inferior vena cava filter Ou cateract surgery 2007 Hiatal hernia repair 1985 Orif left ankle unstable trimalleolar fracture dislocation 03/24/2009 Breast surgery 1975 BIOPSY BRESAT, LEFT Family History Problem Relation Age of Onset Heart attack Mother possible VSD Heart disease Mother Other (See Comment) Father pneumonia Other (See Comment) Other family history of Bastrop's Disease Other (See Comment) Other No kidney disease in family. Heart disease Sister Kidney disease Neg Hx Family Status Relation Status Age Mother Father Sister Other Brother Other Brother Other History Social History Marital Status: Spouse Name: jennifer Number of Children: 2 Years of Education: N/A Occupational History Social History Main Topics Smoking status: Never Smoker Smokeless tobacco: Never Used Alcohol Use: No Drug Use: No Sexually Active: None Other Topics Concern None Social History Narrative Born in [facility] for [facility] years. and Remarried2 sons local. Patient has never smoked. Alcohol Use - noExercise: NoneCaffeine: Decaf onlyLiving Situation: [facility] Current Outpatient Prescriptions Medication Sig Dispense Refill allopurinol (ZYLOPRIM) 100 mg tablet TAKE 1 TABLET BY MOUTH TWICE DAILY 180 tablet 1 amLODIPine (NORVASC) 5 mg [...] Units by mouth Once a wee k. fluticasone (FLONASE) 50 mcg/nasal spray 2 sprays by Nasal route as needed. folic acid 1 mg tablet Take 1 tablet by mouth Daily. 90 tablet 3 furosemide (LASIX) 40 mg tablet TAKE 1 TABLET BY MOUTH EVERY DAY 90 tablet 3 JANUVIA 100 MG tablet TAKE ONE TABLET BY MOUTH EVERY DAY 90 tablet 1 LANTUS 100 UNIT/ML injection INJECT 110 UNITS QS AT BEDTIME 50 mL 1 LIDEX 0.05 % cream APPLY ONE DAUB TOPICALLY ONCE DAILY 60 g 0 lisinopril (PRINIVIL,ZESTRIL) 40 MG tablet TAKE 1 [...] tablet 1 Allergies Allergen Reactions Codeine Sulfate Pedrown Luisvon Nausea Only Estrogens Unknown Review of Systems Constitutional: Negative for fever, chills, activity change, appetite change, fatigue and u nexpected weight change. HENT: Negative for hearing loss, nosebleeds, congestion, dental problem and tinnitus. Eyes: Negative for visual disturbance. Respiratory: Negative for apnea, cough, chest tightness, shortness of breath and wheezing. Cardiovascular: Positive for leg swelling. Gastrointestinal: Negative for nausea, abdominal pain, diarrhea, constipation, blood in sto ol, abdominal distention and anal bleeding. Genitourinary: Positive for urgency and frequency. Negative for hematuria, decreased urine volume and difficulty urinating. Musculoskeletal: Negative for gait problem. Skin: Negative for color change and rash. Neurological: Negative for dizziness, tremors, seizures, syncope, speech difficulty, weakne ss, light-headedness, numbness and headaches. Hematological: Negative for adenopathy. Does not bruise/bleed easily. Psychiatric/Behavioral: Negative for confusion, sleep disturbance and decreased concentrati on. The patient is not nervous/anxious. Objective: Physical Exam Constitutional: She is oriented to person, place, and time. She appears well-developed and well-nourished. No distress. Elderly, obese individual without acute distress HENT: Head: Normocephalic. Nose: Nose normal. Neck: Normal carotid pulses, no hepatojugular reflux and no JVD present. Carotid bruit is n ot present. No tracheal deviation present. Cardiovascular: Regular rhythm, S1 normal, S2 normal, normal heart sounds, intact distal pu lses and normal pulses. PMI is not displaced. Exam reveals no S3, no S4 and no friction ru b. No murmur heard. Pulmonary/Chest: Effort normal and breath sounds normal. She has no decreased breath sounds . She has no wheezes. She has no rhonchi. Abdominal: Normal appearance and normal aorta. She exhibits no distension and no abdominal bruit. There is no hepatosplenomegaly. There is no tenderness. Musculoskeletal: She exhibits edema (left leg 1+ pitting edema.). Neurological: She is alert and oriented to person, place, and time. Gait normal. Psychiatric: She has a normal mood and affect. Her mood appears not anxious. BP 136/80 | Pulse 64 | Resp 16 | Wt 75.751 kg (167 lb) | ? No ECG: Sinus rhythm, first degree AV block, inferior wall [place] age undetermined. Lab Results Component Value Date WBC 11.4* 02/26/2013 HCT 39.3 02/26/2013 MCV 102.8* 02/26/2013 MCH 35.0 02/26/2013 MCHC 34.1 02/26/2013 PLT 158 02/26/2013 RBC 3.82 02/26/2013 Lab Results Component Value Date GLU 110* 02/26/2013 NA 137 02/26/2013 K 3.6 02/26/2013 CL 101 02/26/2013 CO2 28 02/26/2013 CALCIUM 9.5 02/26/2013 ALKPHOS 54 02/26/2013 AST 25 02/26/2013 ALT 21 02/26/2013 BILITOT 0.7 02/26/2013 CREA 1.27 02/26/2013 BUN 23* 02/26/2013 EGFR 40* 02/26/2013 No results found for this basename: chol, trig, ldlcalc, hdl I personally reviewed records from another healthcare provider. Assessment: 1. Extensive history of coronary artery disease: [...] Patient is in a class I of [place] [employer] functional class. Physical exam shows 1+ edema to her left foot and ankle from her old fractured ankle . 2. Hyperlipidemia: A. She is on Simvastatin. No recent lipid profile. 3. Hypertension: A. Today blood pressure is well controlled. 4. Diabetes. 5. Obesity 6. Inactivity Plan: 1. I recommend a therapeutic lifestyle change including walking or using stationary bicycl e 15 minutes a day, choosing healthy choices of diet and weight reduction. 2. Check lipid profile in the near future. 3.Followup in one year. Portions of this report were transcribed using voice recognition software. Every effort wa s made to ensure accuracy; however, inadvertent computerized consultant nurse errors may be pre sent. documented in this encounter Plan of Treatment + +------+--------+ + + | Name | Type | Priori | Associated Diagnoses | Order Schedule | | | | ty | | | + +------+--------+ + + | Lipid Profile | Lab | Routin | CAD (coronary | Expected: | | | | e | artery disease) | 03/02/2013, Expires: | | | | | Hyperlipidemia | 03/02/2014 | + +------+--------+ + + documented as of this encounter Visit Diagnoses + + | Diagnosis | + + | CAD (coronary artery disease) - Primary Coronary atherosclerosis of unspecified type | | of vessel, wilton or graft | + + | Hypertension Unspecified essential hypertension | + + | Hyperlipidemia Other and unspecified hyperlipidemia | + + documented in this encounter
--- OUTSIDE RECORDS SUMMARY | ~2019-07-24 | XMS | Encounter Summary ---
Demographics + + + | Address | [address] | | | [place] [address] | + + + | Home Phone [...] | Author | [facility] | | | and [place] | + + + | Organization | [facility] | | | [...] | | | | | [place] [address] | | + + + + + | Valentín Saleh | ECON | [phone] | | | | | [place] [address] | | + + + + + | Roberto Carlos Lennon | LEVI | Unknown | | + + + + + Care Team Providers + +------+ + | Care District Court Reporter Name | Role | Phone | + [...] Description | +--------+--------+ + + + | 04/14/ | Refill | [facility] | Francois Pascal, | Medication Refill | | 2015 | | MEDICINE [facility] | [address] | | | | | [facility] | [address], | | | | | [place] [address] | [place] [address] | | | | | [phone] | [phone] | | | | | | | [...]
--- OUTSIDE RECORDS SUMMARY | ~2019-07-24 | XMS | Encounter Summary ---
Demographics + + + | Address | [address] | | | [place] [address] | + + + | Home Phone [...] | [facility] | | | and [place] | + + + | Organization | [facility] | | | and [place] | + + + | Address | Unknown | + + + | Phone | Unavailable | + + + Support + + + + + | Name | Relationship | Address | Phone | + + + + + | Sigrid Lennon | ECON | [address] | | | | | [place] [address] | | + + + + + | Valentín Saleh | ECON | [phone] | | | | | [place] [address] | | + + + + + | Roberto Carlos Lennon | LEVI | Unknown | | + + + + + Care Team Providers + +------+ + | Care Manager Of Financial Name | Role | Phone | + +------+ + | Francois Pascal MD | PCP | | + +------+ + Encounter Details +--------+ + + + + | Date | Type | Department | Care Team | Description | +--------+ + + + + | 09/14/ | Orders Only | [facility] [place] | [place], | CHRONIC KIDNEY | | 2017 | | NEPHROLOGY [address] | [address] | DISEASE STAGE III | | | | [address] | [address] [place] | (MODERATE) (Primary | | | | [place], [place] | [address] [place], [place] | Dx); Gout, | | | | [address] | [address] | unspecified cause, | | | | [phone] | | unspecified | | | | | | chronicity, | | | | | | unspecified site | +--------+ + + + + Social [...] encounter Progress Notes Zaynab Humphries RN - 09/14/2016 9:46 AM [facility] documented in this encounter Plan of Treatment Not on filedocumented as of this encounter Results Uric Acid (10/04/2016 11:04 AM PDT) + +-------+ + + + | Component | Value | Ref Range | Performed | Pathologist | | | | | At | Signature | + +-------+ + + + | Uric Acid | 3.9 | 2.6 - 7.2 mg/dL | [facility] [...] + | [facility] | [address] | [place] | [phone] | | [facility] | | [address] | | | - LABORATORY | | [...] [address] | [place] | [phone] | | [facility] | | [address] | | | - LABORATORY | | | | + + + + + Parathyroid Hormone, Intact (10/04/2016 11:04 AM PDT) + +-------+ + + + | Component | Value | Ref Range | Performed | Pathologist | | | | | At | Signature | + +-------+ + + + | PTH Intact | 20 | 12 - 88 pg/mL | [facility] | | | | | | Va [...] [address] | [place] | [phone] | | [facility] | | [address] | | | - LABORATORY | | [...] mL/min/1.73m2 | [facility] | | | [facility] | | | MEDICAL | | | [...] + | [facility] | [address] | [place] | [phone] | | [facility] | | [address] | | | - LABORATORY | | | | + + + + + documented in this encounter Visit Diagnoses + + | Diagnosis | + + | CHRONIC KIDNEY DISEASE STAGE III (MODERATE) - Primary Chronic kidney disease, Stage | | III (moderate) | + + | Gout, unspecified cause, unspecified chronicity, unspecified site | + + documented in this encounter"
--- OUTSIDE RECORDS SUMMARY | ~2019-07-24 | XMS | Encounter Summary ---
Demographics + + + | Address | [address] | | | [place] [address] | + + + | Home Phone [...] [facility] | | | and [place] | + + + | Organization | [facility] | [...] | | | | | [place] [address] | | + + + + + | Valentín Saleh | ECON | [address] | | | | | [place] [address] | | + + + + + | Roberto Carlos Lennon | LEVI | Unknown | | + + + + + Care Team Providers + +------+ + | Care Charging Board Operator Name | Role | Phone | [...] | 10/29/ | Refill | [facility] [place] [facility] | Francois Pascal, | Medication Refill | | 2015 | | MEDICINE [facility] | [address] | | | | | [facility] | [address], | | | | | [place] [address] | [place] [address] | | | | | [phone] | [phone] | | | | | | | [...]
--- OUTSIDE RECORDS SUMMARY | ~2019-07-24 | XMS | Encounter Summary ---
Demographics + + + | Address | [address] | | | [place] [address] | + + + | Home Phone [...] | Author | [facility] | | | and [place] | + + + | Organization | [facility] | [...] | | | | | [place] [address] | | + + + + + | Valentín Saleh | ECON | [address] | | | | | [place] [address] | | + + + + + | Roberto Carlos Lennon | LEVI | Unknown | | + + + + + Care Team Providers + +------+ + | Care Spa Technician Name | Role | Phone | + +------+ + | Francois Pascal MD | PCP | | + +------+ + Reason for Visit +---------+ + | Reason | Comments | +---------+ + | Door Liner | | +---------+ + Encounter Details +--------+ + + + + | Date | Type | Department | Care Team | Description | +--------+ + + + + | 08/11/ | Telephone | [facility] | CristianDiane FNP | Door Liner | | 2018 | | MEDICINE [place] | [address] | | | | | [address] | [place] | | | | | [place] | [address] | | | | | [address] | | | | | | [phone] | | | +--------+ + + + [...]
--- OUTSIDE RECORDS SUMMARY | ~2019-07-24 | XMS | Encounter Summary ---
Demographics + + + | Address | [address] | | | [place] [address] | + + + | Home Phone [...] | Author | [facility] | | | and [place] | + + + | Organization | [facility] | [...] | | | | | [place] [address] | | + + + + + | Valentín Saleh | ECON | [address] | | | | | [place] [address] | | + + + + + | Roberto Carlos Lennon | LEVI | Unknown | | + + + + + Care Team Providers + +------+ + | Care Retail Support Specialist Name | Role | Phone | [...] + | 10/16/ | Telephone | [facility] | Francois Pascal, | Results | | 2015 | | MEDICINE [address] | [place] [address] | | | | | [facility] | [address], | | | | | [place] [address] | [place] [address] | | | | | [phone] | [phone] | | | | | | | [...] [address] | [place] | [phone] | | [facility] | | [address] | | | - LABORATORY | | [...]
--- OUTSIDE RECORDS SUMMARY | ~2019-07-24 | XMS | Encounter Summary ---
Demographics + + + | Address | [address] | | | [place] [address] | + + + | Home Phone [...] | [facility] | | | and [place]ana | + + + | Organization | [facility] [...] | | | | | [place] [address] | | + + + + + | Valentín Saleh | ECON | [id number] | | | | | [place] [address] | | + + + + + | Roberto Carlos Lennon | LEVI | Unknown | | + + + + + Care Team Providers + +------+ + | Care Acid Painter Name | Role | Phone | [...] | 05/21/ | Refill | [facility] [place] [facility] | Francois Pascal, | Medication Refill | | 2020 | | [facility] | [address] | | | | | [address] | [address] [place], | | | | | [place] | [place] [address] | | | | | [address] | [phone] | | | | | [phone] | | | +--------+--------+ + + + [...]
--- OUTSIDE RECORDS SUMMARY | ~2019-07-24 | XMS | Encounter Summary ---
Demographics + + + | Address | [address] | | | [place] [address] | + + + | Home Phone | | + + + | Preferred Language | Unknown | + + + | Marital Status | Single | + + + | Hindu Affiliation | UNK | + + + | Race | White | + + + | Ethnic Group | Not or | + + + Author + + + | Author | [facility] | + + + | Organization | [facility] | + + + | Address | Unknown | + + + | Phone | Unavailable | + + + Support + + + + + | Name | Relationship | Address | Phone | + + + + + | Sigrid Lennon | LEVI | [address] | | | | | [place] [address] | | + + + + + | None None | ECON | Unknown | Unavailable | + + + + + Care Team Providers + +------+ + | Care Chili Maker Name | Role | Phone | [...] | | | Surgery Services at | [address] | | | | | [address] | [place], [place] | | | | | [address] | [address] | | | | | Physician's | [phone] | | | | | Charles, [facility] floor | | | | | | [place], [place] | | | | | | [address] | | | | | | [phone] | | | +--------+ + + + [...]
--- OUTSIDE RECORDS SUMMARY | ~2019-07-24 | XMS | Encounter Summary ---
Demographics + + + | Address | [address] | | | [place] [address] | + + + | Home Phone [...] | [facility] | | | and [place]ana | + + + | Organization | [facility] | | [...] | | | | | [place] [address] | | + + + + + | Valentín Saleh | ECON | [phone] | | | | | [place] [address] | | + + + + + | Roberto Carlos Lennon | LEVI | Unknown | | + + + + + Care Team Providers + +------+ + | Care Winder Helper Name | Role | Phone | [...] + + | 12/19/ | Office | [facility] | Francois Pascal, | HYPERTENSION NEC | | 2014 | Visit | MEDICINE [address] [place] [address] | [address] | (Primary Dx); | | | | [facility] | [address] [place], | Hyperlipidemia; DM | | | | [place] [address] | [place] [address] | (diabetes mellitus); | | | | [phone] | [phone] | CHRONIC KIDNEY | | | | [...] 20-30 L and 36 for dinner. an d Januvia (she understands the risk with this). [...] still feeling slightly sore though. 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 CKD, She urinates normally. There is [...] Her thinks she should go to the [facility] in [place] and get in the water. Past Medical [...] VSD Father 50 Pneumonia Family Hx of Hamilton's chorea Sister and 2 brothers: CAD, Airam's Disease to Sigrid - with 2 Healthy Children No kidney disease in family. Social History: Reviewed history from 08/11/2011 and no changes required: Born in [facility] for 46 years. and Remarried 2 [...] - 1.030 | [facility] | | | [place], | | | [facility] | | [...] | | | Urine | | | [facility] | | [...] | | Urine | | | [facility] | | [...] + | [facility] | [address] | [place] | [phone] | | [facility] | | [address] | | | - LABORATORY | | | | + + + + + | [facility] | [address] | [place], [place] | | | [facility] | | [address] | | | - [...] + | [facility] | [address] | [place], [place] | [phone] | | [facility] | | [address] | | | - LABORATORY | | | | + + + + + | [facility] | [address] | [place], [place] | | | [facility] | | [address] [place] [address] | | | - LABORATORY | | [...] + | [facility] | [address] | [place], [place] | [phone] | | [facility] | | [address] | | | - LABORATORY | | | | + + + + + | [facility] | [address] | [place] | | | [facility] | | [address] | | | [...] LDL, | 57 | <=130 mg/dL | [facility] | | [...] [address] | [place] | [phone] | | [facility] | | [address] | | | - LABORATORY | | | | + + + + + | [facility] | [address] | [place] | | | [facility] | | [address], [facility] | | | [...] | mL/min/1.73m2 | [facility] | | | SYRIAN | RATE,ESTIMATED | | MEDICAL | | | | mL/min/1.08z3Yeox than | | CENTER - | | [...] 3.9 | 3.2 - 5.0 g/dL | [facility] [...] [address] | [place] | [phone] | | [facility] | | [address] | | | - LABORATORY | | | | + + + + + | [facility] | [address] | [place], [place] | | | [facility] | | [address], [facility] | | | [...]
--- OUTSIDE RECORDS SUMMARY | ~2019-07-24 | XMS | Encounter Summary ---
Demographics + + + | Address | [address] | | | [place] [address] | + + + | Home Phone [...] Author | [facility] | | | and [place] | + + + | Organization | [facility] | | [...] | | | | | [place] [address] | | + + + + + | Valentín Saleh | ECON | [address] | | | | | [place] [address] | | + + + + + | Roberto Carlos Lennon | LEVI | Unknown | | + + + + + Care Team Providers + +------+ + | Care Hat Band Attacher Name | Role | Phone | + +------+ + | Francois Pascal MD | PCP | | + +------+ + Encounter Details +--------+ + + + + | Date | Type | Department | Care Team | Description | +--------+ + + + + | 07/30/ | [facility] | [facility] | Glenn Miramontes | Left ankle pain | | 2015 | Encounter | MED CTR XRAY [address] | [address], [address] | | | | | [place] | [place], [place] | | | | | [place] [address] | [address] | | | | | [phone] | | | +--------+ + + + [...] | + + + + + | [facility] | [address] | [place] | [phone] | | [facility] | | [address] | | | - IMAGING | | | | + + + + + documented in this encounter Visit Diagnoses + + | Diagnosis | + + | Left ankle pain Pain in joint, ankle and foot | + + documented in this encounter"
--- OUTSIDE RECORDS SUMMARY | ~2019-07-24 | XMS | Encounter Summary ---
Demographics + + + | Address | [address] | | | [place] [address] | + + + | Home Phone [...] + | Author | [facility] | | | and [place] | + + + | Organization | [facility] [...] | | | | | [place] [address] | | + + + + + | Valentín Saleh | ECON | [address] | | | | | [place] [address] | | + + + + + | Roberto Carlos Lennon | LEVI | Je[place] | | + + + + + Care Team Providers + +------+ + | Care Payroll And Benefits Analyst Name | Role | Phone | + +------+ + PCP | Unavailable | + +------+ + Encounter Details +--------+ + + + + | Date | Type | Department | Care Team | Description | +--------+ + + + + | 02/20/ | Hospital | [facility] | Francois Pascal, | | | 2008 | Encounter | MED CTR XRAY [address] | [address] | | | | | [place] | [address] [place], | | | | | [place] [address] | [place] [address] | | | | | [phone] | [phone] | | | | | | | [...]
--- OUTSIDE RECORDS SUMMARY | ~2019-07-24 | XMS | Encounter Summary ---
Demographics + + + | Address | [address] | | | [place] [address] | + + + | Home Phone [...] | Author | [facility] | | | and [place] | + + + | Organization | [facility] | | [...] | | | | | [place] [address] | | + + + + + | Valentín Saleh | ECON | [phone] | | | | | [place] [address] | | + + + + + | Roberto Carlos Lennon | LEVI | [place] | | + + + + + Care Team Providers + +------+ + | Care Kitchen Manager Name | Role | Phone | + +------+ + PCP | Unavailable | + +------+ + Encounter Details +--------+ + + + + | Date | Type | Department | Care Team | Description | +--------+ + + + + | 05/17/ | Hospital | [facility] | | | | 2001 | Encounter | MED CTR MP INTRA OP | | | | | | [address] | | | | | | [place] | | | | | | [address] | | | | | | [phone] | | | +--------+ + + + [...]
--- OUTSIDE RECORDS SUMMARY | ~2019-07-24 | XMS | Encounter Summary ---
Demographics + + + | Address | [address] | | | [place] [address] | + + + | Home Phone [...] + | Author | [facility] | | | and [place] | + + + | Organization | [facility] | [...] | | | | | [place] [address] | | + + + + + | Valentín Saleh | ECON | [address] | | | | | [place] [address] | | + + + + + | Roberto Carlos Lennon | LEVI | Unknown | | + + + + + Care Team Providers + +------+ + | Care Standpipe Tender Name | Role | Phone | [...] | | | [place], [place] | [place] [address] | | | | | | [address] | Phone: | | | | | | Phone: | [phone] | | | | | | [phone] | Fax: | | | | | | Fax: | [phone] | | | | | | [phone] | | +--------+ + + + + + Encounter Details +--------+ + + + + | Date | Type | Department | Care Team | Description | +--------+ + + + + | 11/16/ | Orders Only | [facility] [place] [facility] | Francois Pascal, | Glossitis (Primary | | 2016 | | MEDICINE [address] | [address] | Dx) | | | | [place] | [address] [place], | | | | | [place] [address] | [place] [address] | | | | | [phone] | [phone] | | | | | | | [...]
--- OUTSIDE RECORDS SUMMARY | ~2019-07-24 | XMS | Encounter Summary ---
Demographics + + + | Address | [address] | | | [place] [address] | + + + | Home Phone [...] | Author | [facility] | | | and [place] | + + + | Organization | [facility] [...] | | | | | [place] [address] | | + + + + + | Valentín Saleh | ECON | [address] | | | | | [place] [address] | | + + + + + | Roberto Carlos Lennon | LEVI | Unknown | | + + + + + Care Team Providers + +------+ + | Care Photovoltaic Panel Installer Name | Role | Phone | [...] | 03/20/ | Refill | [facility] [place] [facility] | Francois Pascal, | Medication Refill | | 2013 | | MEDICINE [place] | [address] | | | | | [address] | [address] [place], | | | | | [place] | [place] [address] | | | | | [address] | [phone] | | | | | [phone] | | | +--------+--------+ + + + [...]
--- OUTSIDE RECORDS SUMMARY | ~2019-07-24 | XMS | Encounter Summary ---
Demographics + + + | Address | [address] | | | [place] [address] | + + + | Home Phone [...] | Author | [facility] | | | and [place] | + + + | Organization | [facility] [...] | | | | | [place] [address] | | + + + + + | Valentín Saleh | ECON | [address] | | | | | [place] [address] | | + + + + + | Roberto Carlos Lennon | LEVI | Unknown | | + + + + + Care Team Providers + +------+ + | Care Textile Machine Operator Name | Role | Phone [...] | 06/21/ | Refill | [facility] [place] [facility] | Francois Pascal, | Medication Refill | | 2012 | | MEDICINE [place] | [address] | | | | | [address] | [address] [place], | | | | | [place] | [place] [address] | | | | | [address] | [phone] | | | | | [phone] | | | +--------+--------+ + + + [...] of this encounter Plan of Treatment + +------+--------+ [...] 40 (L)Comment: For | >60 mL/min/A | [facility] [...] 137 | 136 - 149 mEq/L | [facility]ELA [...] + | [facility] | [address] | [place], [place] | [phone] | | [facility] | | [address] | | | - LABORATORY | | | | + + + + + | [facility] | [address] | [place], [place] | | | [facility] | | [address], [facility] | | [...] | | Basophils | | | [facility] | | [...] [address] | [place] | [phone] | | [facility] | | [address] | | | - LABORATORY | | | | + + + + + | [facility] | [address] | [place] | | | [facility] | | [address] | | | - LABORATORY [...] (H) | 70 - 109 mg/dL | [facility] | | | | [...] (H) | 7 - 18 mg/dL | [facility] | | | | | | [facility] | | | | | | MEDICAL | | | | | | CENTER - | | | | | | LABORATORY | | + + + + + + | Creatinine | 1.73 (H) | 0.60 - 1.30 | [facility] | | | | | mg/dL | [facility] | | | | | | MEDICAL | | | | | | CENTER - | | | | | | LABORATORY | | + + + + + + | Estimated | 28 (L)Comment: For | >60 mL/min/A | [facility] | | | GFR | -Americans, | [...] + | [facility] | [address] | [place] | [phone] | | [facility] | | [address] | | | - LABORATORY | | | | + + + + + | [facility] | [address] | [place] | | | [facility] | | [address] | | | - LABORATORY [...] + + + + | RBC | 3.68 (L) | 3.70 - 5.20 [...] + | [facility] | [address] | [place], [place] | [phone] | | [facility] | | [address] | | | - LABORATORY | | | | + + + + + | [facility] | [address] | [place], [place] | | | [facility] | | [address] [place] [address] | | | - LABORATORY | | | | + + + + + CBC with Differential (06/23/2012 9:32 AM PDT) + + + + + + | Component | Value | Ref Range | Performed | Pathologist | | | | | At | Signature | + + + + + + | WBC | 9.2 | 4.0 - 11.0 K/uL | [facility] | | | | | | [facility] | | | | | | MEDICAL | | | | | | CENTER - | | | | | | LABORATORY | | + + + + + + | RBC | 3.74 | 3.70 - 5.20 | [...] + | [facility] | [address] | [place] | [phone] | | [facility] | | [address] | | | - LABORATORY | | | | + + + + + | [facility] | [address] | [place] | | | [facility] | | [address], [facility] | | | - LABORATORY | | | | + + + + + documented in this encounter Visit Diagnoses + + | Diagnosis | + + | ARTHRITIS, CHRONIC - Primary Arthropathy, unspecified, site unspecified | + + documented in this encounter"
--- OUTSIDE RECORDS SUMMARY | ~2019-07-24 | XMS | Encounter Summary ---
Demographics + + + | Address | [address] | | | [place] [address] | + + + | Home Phone [...] | [facility] | | | and [place]ana | + + + | Organization | [facility] [...] | | | | | [place] [address] | | + + + + + | Valentín Saleh | ECON | [address] | | | | | [place] [address] | | + + + + + | Roberto Carlos Lennon | LEVI | Unknown | | + + + + + Care Team Providers + +------+ + | Care Preformer Impregnated Fabrics Name | Role | Phone | + [...] | 03/05/ | Refill | [facility] [place] [facility] | Francois Pascal, | Medication Refill | | 2012 | | MEDICINE [place] | [address] | | | | | [address] | [address] [place], | | | | | [place] | [place] [address] | | | | | [address] | [phone] | | | | | [phone] | | | +--------+--------+ + + + [...]
--- OUTSIDE RECORDS SUMMARY | ~2019-07-24 | XMS | Encounter Summary ---
Demographics + + + | Address | [address] | | | [place] [address] | + + + | Home Phone | | + + + | Preferred Language | Unknown | + + + | Marital Status | | + + + | Yazdanism Affiliation | Unknown | + + + | Race | Unknown | + + + | Ethnic Group | Unknown | + + + Author + + + | Author | [facility] | | | and Clarkeana | + + + | Organization | [facility] | [...] | | | | | [place] [address] | | + + + + + | Valentín Saleh | ECON | [address] | | | | | [place] [address] | | + + + + + | Roberto Carlos Lennon | LEVI | Unknown | | + + + + + Care Team Providers + +------+ + | Care Matcher Name | Role | Phone | + [...] | instability | [address] | [place] | | | | n | [address] | [address] | [place], | | | | | (ICD-10-CM) | [place] | [place] [address] | | | | | - [address] | [place] | Phone: | | | | | (ICD-9-CM) - | [address] | [phone] | | | | | Gait | Phone: | Fax: | | | | | instability | [phone] | [phone] | | | | | Procedures | Fax: | | | | | | pt eval | [phone] | | +--------+ + + + + + Encounter Details +--------+---------+ + + + | Date | Type | Department | Care Team | Description | +--------+---------+ + + + | 01/23/ | Office | [facility] | Francois Pascal, | Posture imbalance | | 2015 | Visit | MED CTR THERAPY PT | [address] | (Primary Dx); | | | | OP [address] | [address] [place], | Impaired functional | | | | [place] | [place] [address] | mobility, balance, | | | | [address] | [phone] | gait, and endurance; | | | | [phone] | | Left ankle pain | | | | | Kely Quinn B, PT | | | | | | [address] | | | | | | [place] | | | | | | [address] | | | | | | | [...] might be different from t he original. [facility] CTR THERAPY PT OP [address] [place] [address] Physical Therapy Daily Treatment Note Date: 01/23/2015 Patient Information Patient Name: Alyson Lennon Date of : 1930 Age: 84 y.o. Encounter Diagnoses Code Name Primary? R29.3 Posture imbalance Yes Z74.09 Impaired functional mobility, balance, gait, and endurance M25.572 Left ankle pain Date of Onset: 10/24/14 Referring Provider: Francois Pascal MD Rehab Precautions Office Visit from 12/24/[address] [facility] CTR THERAPY PT OP Rehab Precautions Precautions Comments fall risk Start Time: 944 Stop time: 1030 Duration: 45 minutes Timed Treatment Codes: 45 [...] Name: Alyson Lennon/: 1930/ documented in this enc nter Plan of Treatment Not on filedocumented [...]
--- OUTSIDE RECORDS SUMMARY | ~2019-07-24 | XMS | Encounter Summary ---
Demographics + + + | Address | [address] | | | [place] [address] | + + + | Home Phone [...] [facility] | | | and Clarkeana | + + + | Organization | [facility] | | | [...] | | | | | [place] [address] | | + + + + + | Valentín Saleh | ECON | [address] | | | | | [place] [address] | | + + + + + | Roberto Carlos Lennon | LEVI | Unknown | | + + + + + Care Team Providers + +------+ + | Care Cripple Worker Name | Role | Phone | [...] [address] | [address] [place] | | | | | (ICD-9-CM) - | [place] | [place] | | | | | Gait | [place] | [address] Phone: | | | | | instability | [address] | [phone] | | | | | Procedures | Phone: | Fax: | | | | | [facility] | [phone] | [phone] | | | | | TREATMENT 45 | Fax: | | | | | | | [phone] | | +--------+--------+ + + + + Encounter Details +--------+---------+ + + + | Date | Type | Department | Care Team | Description | +--------+---------+ + + + | 03/19/ | Office | [facility] | Francois Pascal, | Posture imbalance | | 2016 | Visit | MED CTR THERAPY PT | [address] | (Primary Dx); | | | | OP [address] | [address] [place], | Impaired functional | | | | [place], [place] | [place] [address] | mobility, balance, | | | | [address] | [phone] | gait, and endurance; | | | | [phone] | | Left ankle pain | | | | | Kely Quinn, PT | | | | | | [address] | | | | | | [place] | | | | | | [address] | | | | | | | [...] + documented as of this encounter Progress Kely Jacob PT - 03/19/2015 11:35 AM PSTFormatting of this note might be different from t he original. [facility] CTR THERAPY PT OP [address] [place] [address] Physical Therapy Discharge Note Date: 03/19/2015 Patient Information Patient Name: Alyson Lennon Date of : 1930 Age: 84 y.o. Encounter Diagnoses Code Name Primary? R29.3 Posture imbalance Yes Z74.09 Impaired functional mobility, balance, gait, and endurance M25.572 Left ankle pain Date of Onset: 10/24/2014 Referring Provider: Francois Pascal MD Rehab Precautions Office Visit from 12/24/[address] 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 [...] From: 02/13/2015 Certification To: 05/08/2015 Treatment Plan/Interventions 75774 - PT Evaluation 26659 - PT Re-Evaluation 14792 - Therapeutic Exercise 98750 - Neuromu scular Reeducation 97477 - Gait Training 95130 - Therapeutic Activities 71424 - [place] 79905 - Self Care/Home Management Patient and/or family has indicated understanding of treatment needs and actively participa rachel in the creation of this plan for care. Today's Treatment Start Time: 1130 Stop time: 1200 Duration: 30 minutes Timed Treatment Codes: 30 minutes # of PT Visits: 17 Objective: Reviewed HEP Next Visit: Pt is DC'd from skilled therapy at this time. 3/4 goals met Electronically signed by: Kely Green PT, 03/19/2015 14:13 Patient Name: Alyson Lennon/: [...]
--- OUTSIDE RECORDS SUMMARY | ~2019-07-24 | XMS | Encounter Summary ---
Demographics + + + | Address | [address] | | | [place] [address] | + + + | Home Phone [...] | Author | [facility] | | | and Clarkeana | + + + | Organization | [facility] | [...] | | | | | [place] [address] | | + + + + + | Valentín Saleh | ECON | [address] | | | | | [place] [address] | | + + + + + | Roberto Carlos Lennon | LEVI | Unknown | | + + + + + Care Team Providers + +------+ + | Care Strategic Manager Name | Role | Phone | + +------+ + | Francois Pascal MD | PCP | | + +------+ + Reason for Visit + + + | Reason | Comments | + + + | Nephrology | | | Appointment | | + + + Encounter Details +--------+ + + + + | Date | Type | Department | Care Team | Description | +--------+ + + + + | 10/12/ | Telephone | [facility] | [place], | Nephrology | | 2019 | | NEPHROLOGY [address] | [address] | Appointment | | | | [facility] [address] | [address] , [facility] | | | | | [place], [place] | [address] [place], [place] | | | | | [address] | [address] | | | | | [phone] | | | +--------+ + + + [...]
--- OUTSIDE RECORDS SUMMARY | ~2019-07-24 | XMS | Encounter Summary ---
Demographics + + + | Address | [address] | | | [place] [address] | + + + | Home Phone [...] | Author | [facility] | | | and [place] | + + + | Organization | [facility] [...] | | | | | [place] [address] | | + + + + + | Valentín Saleh | ECON | [address] | | | | | [place] [address] | | + + + + + | Roberto Carlos Lennon | LEVI | [place] | | + + + + + Care Team Providers + +------+ + | Care Yarn Bleaching Machine Operator Name | Role | Phone | + +------+ + PCP | Unavailable | + +------+ + Encounter Details +--------+ + + + + | Date | Type | Department | Care Team | Description | +--------+ + + + + | 08/19/ | Hospital | [facility] | Roberto Carlos Tello, | | | 1994 | Encounter | MED CTR XRAY [address] | [address] [facility] | | | | | [place] | [place] | | | | | [place] [address] | [id number] | | | | | [phone] | | | +--------+ + + + [...]
--- OUTSIDE RECORDS SUMMARY | ~2019-07-24 | XMS | Encounter Summary ---
Demographics + + + | Address | [address] | | | [place] [address] | + + + | Home Phone [...] | Author | [facility] | | | and [place] | + + + | Organization | [facility] [...] | | | | | [place] [address] | | + + + + + | Valentín Saleh | ECON | [address] | | | | | [place] [address] | | + + + + + | Roberto Carlos Lennon | LEVI | [place] | | + + + + + Care Team Providers + +------+ + | Care Wire Bound Box Machine Operator Name | Role | Phone | + +------+ + PCP | Unavailable | + +------+ + Encounter Details +--------+ + + + + | Date | Type | Department | Care Team | Description | +--------+ + + + + | 09/30/ | Hospital | [facility] | | | | 2000 | Encounter | MED CTR XRAY [address] | | | | | | [place] | | | | | | [place] [address] | | | | | | [phone] | | | +--------+ + + + [...]
--- OUTSIDE RECORDS SUMMARY | ~2019-07-24 | XMS | Encounter Summary ---
Demographics + + + | Address | [address] | | | [place] [address] | + + + | Home Phone [...] | Author | [facility] | | | and [place] | + + + | Organization | [facility] | | | and [place] | + + + | Address | Unknown | + + + | Phone | Unavailable | + + + Support + + + + + | Name | Relationship | Address | Phone | + + + + + | Sigrid Lennon | ECON | [address] | | | | | [place] [address] | | + + + + + | Valentín Saleh | ECON | [address] | | | | | [place] [address] | | + + + + + | Roberto Carlos Lennon | LEVI | Unknown | | + + + + + Care Team Providers + +------+ + | Care Insurance Follow Up Rep Name | Role | Phone | + [...] | instability | [address] | [place] | | | | n | [address] | [address] | [place], | | | | | (ICD-10-CM) | [place] | [place] [address] | | | | | - 781.2 | [place] | Phone: | | | | | (ICD-9-CM) - | [address] | [phone] | | | | | Gait | Phone: | Fax: | | | | | instability | [phone] | [phone] | | | | | Procedures | Fax: | | | | | | pt eval | [phone] | | +--------+ + + + + + Encounter Details +--------+---------+ + + + | Date | Type | Department | Care Team | Description | +--------+---------+ + + + | 01/13/ | Office | [facility] | Francois Pascal, | Impaired functional | | 2015 | Visit | MED CTR THERAPY PT | MD [address] | mobility, balance, | | | | OP [address] | [address] [place], | gait, and endurance | | | | [place] | [place] [address] | (Primary Dx); | | | | [address] | [phone] | Posture imbalance; | | | | [phone] | | Left ankle pain | | | | | Kely Quinn, PT | | | | | | [address] | | | | | | [place] | | | | | | [address] | | | | | | | [...] be different from t he original. [facility] CTR THERAPY PT OP [address] [place] [address] Physical Therapy Daily Treatment Note Date: 01/13/2015 Patient Information Patient Name: Alyson Lennon Date of : 1930 Age: 84 y.o. Encounter Diagnoses Code Name Primary? Z74.09 Impaired functional mobility, balance, gait, and endurance Yes R29.3 Posture imbalance M25.572 Left ankle pain Date of Onset: 10/24/14 Referring Provider: Francois Pascal MD Rehab Precautions Office Visit from 12/24/2014 in [facility] CTR THERAPY PT OP Rehab Precautions Precautions [...]
--- OUTSIDE RECORDS SUMMARY | ~2019-07-24 | XMS | Encounter Summary ---
Demographics + + + | Address | [address] | | | [place] [address] | + + + | Home Phone [...] | Author | [facility] | | | and [place] | + + + | Organization | [facility] | | | and [place] | + + + | Address | Unknown | + + + | Phone | Unavailable | + + + Support + + + + + | Name | Relationship | Address | Phone | + + + + + | Sigrid Lennon | ECON | [address] | | | | | [place] [address] | | + + + + + | Valentín Saleh | ECON | [address] | | | | | [place] [address] | | + + + + + | Roberto Carlos Lennon | LEVI | [place] | | + + + + + Care Team Providers + +------+ + | Care Career Based Intervention Coordinator Name | Role | Phone | + +------+ + PCP | Unavailable | + +------+ + Encounter Details +--------+ + + + + | Date | Type | Department | Care Team | Description | +--------+ + + + + | 04/27/ | Hospital | [facility] | | | | 2007 | Encounter | MED CTR LABORATORY | | | | | | [address] | | | | | | [place] | | | | | | [address] | | | | | | [phone] | | | +--------+ + + + [...]
--- OUTSIDE RECORDS SUMMARY | ~2019-07-24 | XMS | Encounter Summary ---
Demographics + + + | Address | [address] | | | [place] [address] | + + + | Home Phone [...] | Author | [facility] | | | and [place] | + + + | Organization | [facility] [...] | | | | | [place] [address] | | + + + + + | Valentín Saleh | ECON | [address] | | | | | [place] [address] | | + + + + + | Roberto Carlos Lennon | LEVI | Unknown | | + + + + + Care Team Providers + +------+ + | Care Family Counselor Name | Role | Phone | [...] | instability | [address] | [place] | | | | n | [address] | [address] | [place], | | | | | (ICD-10-CM) | [place] | [place] [address] | | | | | - 781.2 | [place] | Phone: | | | | | (ICD-9-CM) - | [address] | [phone] | | | | | Gait | Phone: | Fax: | | | | | instability | [phone] | [phone] | | | | | Procedures | Fax: | | | | | | pt eval | [phone] | | +--------+ + + + + + Encounter Details +--------+---------+ + + + | Date | Type | Department | Care Team | Description | +--------+---------+ + + + | 12/26/ | Office | [facility] | Francois Pascal, | Impaired functional | | 2015 | Visit | MED CTR THERAPY PT | MD [address] | mobility, balance, | | | | OP [address] [place] | [address] [place], | gait, and endurance | | | | [place] | [place] [address] | (Primary Dx); | | | | [address] | [phone] | Posture imbalance; | | | | [phone] | | Left ankle pain | | | | | Cheyenne Caballero, | | | | | | ACETYLENE OPERATOR [address] | | | | | | [place] | | | | | | [address] | | | | | | | [...] encounter Progress Notes Cheyenne Caballero PTA - 12/26/2014 10:37 AM PDTFormatting of this note might be different f rom the original. [facility] CTR THERAPY PT OP [address] [place] [address] Physical Therapy Daily Treatment Note Date: 12/26/2014 Patient Information Patient Name: Alyson Lennon Date of : 1930 Age: 83 y.o. Encounter Diagnoses Code Name Primary? Z74.09 Impaired functional mobility, balance, gait, and endurance Yes R29.3 Posture imbalance M25.572 Left ankle pain Date of Onset: 10/24/14 Referring Provider: Francois Pascal MD Rehab Precautions Office Visit from 12/24/2014 in [facility] CTR THERAPY PT OP Rehab Precautions [...]
--- OUTSIDE RECORDS SUMMARY | ~2019-07-24 | XMS | Encounter Summary ---
Demographics + + + | Address | [address] | | | [place] [address] | + + + | Home Phone [...] | Author | [facility] | | | and [place] | + + + | Organization | [facility] [...] | | | | | [place] [address] | | + + + + + | Valentín Saleh | ECON | [address] | | | | | [place] [address] | | + + + + + | Roberto Carlos Lennon | LEVI | Unknown | | + + + + + Care Team Providers + +------+ + | Care Motion Designer Name | Role | Phone | + +------+ + | Francois Pascal MD | PCP | | + +------+ + Reason for Visit + + + | Reason | Comments | + + + | Appointment | Lab results | + + + Encounter Details +--------+ + + + + | Date | Type | Department | Care Team | Description | +--------+ + + + + | 11/21/ | Telephone | [facility] | Francois Pascal, | Appointment (Lab | | 2012 | | MEDICINE [place] | [address] | results) | | | | [address] | [address] [place], | | | | | [place] | [place] [address] | | | | | [address] | [phone] | | | | | [phone] | | | +--------+ + + + [...]
--- OUTSIDE RECORDS SUMMARY | ~2019-07-24 | XMS | Encounter Summary ---
Demographics + + + | Address | [address] | | | [place] [address] | + + + | Home Phone [...] + | Author | [facility] | | | and [place] | + + + | Organization | [facility] | | [...] | | | | | [place] [address] | | + + + + + | Valentín Saleh | ECON | [address] | | | | | [place] [address] | | + + + + + | Roberto Carlos Lennon | LEVI | [place] | | + + + + + Care Team Providers + +------+ + | Care Hat Checker Name | Role | Phone | + +------+ + PCP | Unavailable | + +------+ + Encounter Details +--------+ + + + + | Date | Type | Department | Care Team | Description | +--------+ + + + + | 10/16/ | Hospital | [facility] | Francois Pascal, | | | 2009 | Encounter | MED CTR LABORATORY | [address] | | | | | [address] [place] | [address] [place], | | | | | [place] | [place] [address] | | | | | [address] | [phone] | | | | | [phone] | | | +--------+ + + + [...]
--- OUTSIDE RECORDS SUMMARY | ~2019-07-24 | XMS | Encounter Summary ---
Demographics + + + | Address | [address] | | | [place] [address] | + + + | Home Phone [...] + | Author | [facility] | | | and [place] | + + + | Organization | [facility] [...] | | | | | [place] [address] | | + + + + + | Valentín Saleh | ECON | [address] | | | | | [place] [address] | | + + + + + | Roberto Carlos Lennon | LEVI | [place] | | + + + + + Care Team Providers + +------+ + | Care Statistician Mathematical Name | Role | Phone | + [...] [place] | | | | | | [address] | | | | | | [phone] | | | +--------+ + + + [...]
--- OUTSIDE RECORDS SUMMARY | ~2019-07-24 | XMS | Encounter Summary ---
Demographics + + + | Address | [address] | | | [place] [address] | + + + | Home Phone [...] Author | [facility] | | | and [place] | + + + | Organization | [facility] | | | and [...] | | | | | [place] [address] | | + + + + + | Valentín Saleh | ECON | [address] | | | | | [place] [address] | | + + + + + | Roberto Carlos Lennon | LEVI | Unknown | | + + + + + Care Team Providers + +------+ + | Care Nursing Program Manager Name | Role | Phone | [...] | Francois Tello MD | [address] | | | | | stenosis, | [address] | [place], | | | | | bilateral | [address] | [place] | | | | | Procedures | [place] | [address] | | | | | MRI | [place] | Phone: | | | | | Angiogram | [address] | [phone] | | | | | Neck w wo | Phone: | Fax: | | | | | Contrast | [phone] | [phone] | | | | | | Fax: | | | | | | | [phone] | | +--------+--------+ + + + + [...] | Francois Tello MD | [address] | | | | | stenosis, | [address] | [place], | | | | | bilateral | [address] | [place] | | | | | Procedures | [place] | [address] | | | | | MRI | [place] | Phone: | | | | | Angiogram | [address] | [phone] | | | | | Neck w wo | Phone: | Fax: | | | | | Contrast | [phone] | [phone] | | | | | | Fax: | | | | | | | [phone] | | +--------+--------+ + + + + Encounter Details +--------+ + + + + | Date | Type | Department | Care Team | Description | +--------+ + + + + | 12/05/ | Hospital | [facility] | Francois Pascal, | Carotid stenosis, | | 2015 | Encounter | MED CTR MRI [address] | [address] | bilateral | | | | [place], | [address] [place], | | | | | [place] [address] | [place] [address] | | | | | [phone] | [phone] | | | | | | | [...] ([facility]) | DINNER | | | | | [...] documented as of this encounter Progress Notes Morasch, Francois G, MD - 12/05/2014 2:56 PM PDT Quick [...] None. PROTOCOL: MRA of the neck | [facility] | | was performed with axial 3-D ervf-yf-gfxhin technique without | [facility] | | [...] | | | on the axial 3-D ggyc-dw-hzfgnp images due to the small size. The [...] | | was performed with axial 3-D dhlm-eg-jszjja techniquewithout contrast and coronal | | dynamic [...] seen on the axial 3-D | | wiyq-cs-jnjiiupzsbzs due to the small size. The left [...] not well seen on the axial 3-D evns-qu-iqppff | |images due to the small size. [...] + + + + + | [facility] | [address] | [place] | [phone] | | [facility] | | [address] | | | - IMAGING | | [...]
--- OUTSIDE RECORDS SUMMARY | ~2019-07-24 | XMS | Encounter Summary ---
Demographics + + + | Address | [address] | | | [place] [address] | + + + | Home Phone [...] Author | [facility] | | | and [place] | + + + | Organization | [facility] | | | and [...] | | | | | [place] [address] | | + + + + + | Valentín Saleh | ECON | [address] | | | | | [place] [address] | | + + + + + | Roberto Carlos Lennon | LEVI | Unknown | | + + + + + Care Team Providers + +------+ + | Care Medical Director Name | Role | Phone | [...] + + | 03/29/ | Office | [facility] | Francois Pascal, | OSTEOARTHRITIS, | | 2012 | Visit | MEDICINE [place] | [address] | ANKLE, LEFT (Primary | | | | [address] | [address] [place], | Dx); HYPERTENSION | | | | [place] | [place] [address] | NEC; Hyperlipidemia; | | | | [address] | [phone] | DM (diabetes | | | | [phone] | | mellitus) (HCC); | | | [...] VSD Father 50 Pneumonia Family Hx of Placer's chorea Sister and 2 brothers: CAD, Airam's Disease to Sigrid - with 2 Healthy Children No kidney disease in family. Social History: Reviewed history from 08/11/2011 and no changes required: Born in [facility] for 46 years. and [...] filedocumented as of this encounter Results Comprehensive Metabolic [...] 48 (L)Comment: For | >60 mL/min/A | MARISELA [...] | 19.3 | 12 - 20 | YANE | | | ine Ratio | | [...] | 11.9 | 6.0 - 17.0 | [facility] | [...] + | | [facility] | | | [facility] | | | - LABORATORY | + + + + + + + + | Performing | Address | City/State/Zipcode | Phone Number | | Organization | | | | + + + + + | [facility] | [address] | [place] | [phone] | | [facility] | | [address] | | | - LABORATORY | | | | + + + + + | [facility] | [address] | [place] | | | [facility] | | [address] | | | - LABORATORY | | [...] + | [facility] | [address] | [place], [place] | [phone] | | [facility] | | [address] | | | - LABORATORY | | | | + + + + + | [facility] | [address] | [place], [place] | | | [facility] | | [id number] [place] [address] | | | - LABORATORY | | [...]
--- OUTSIDE RECORDS SUMMARY | ~2019-07-24 | XMS | Encounter Summary ---
Demographics + + + | Address | [address] | | | [place] [address] | + + + | Home Phone [...] | Author | [facility] | | | and [place] | + + + | Organization | [facility] [...] | | | | | [place] [address] | | + + + + + | Valentín Saleh | ECON | [address] | | | | | [place] [address] | | + + + + + | Roberto Carlos Lennon | LEVI | [place] | | + + + + + Care Team Providers + +------+ + | Care Digital Circuit Designer Name | Role | Phone | + +------+ + PCP | Unavailable | + +------+ + Encounter Details +--------+ + + + + | Date | Type | Department | Care Team | Description | +--------+ + + + + | 01/13/ | Hospital | [facility] | | | | 1993 | Encounter | MED CTR XRAY [address] | | | | | | [place] | | | | | | [place] [address] | | | | | | [phone] | | | +--------+ + + + [...]
--- OUTSIDE RECORDS SUMMARY | ~2019-07-24 | XMS | Encounter Summary ---
Demographics + + + | Address | [address] | | | [place] [address] | + + + | Home Phone [...] Author | [facility] | | | and [place] | + + + | Organization | [facility] | [...] | | | | | [place] [address] | | + + + + + | Valentín Saleh | ECON | [address] | | | | | [place] [address] | | + + + + + | Roberto Carlos Lennon | LEVI | Unknown | | + + + + + Care Team Providers + +------+ + | Care Emergency Service Worker Name | Role | Phone | [...] + + | 08/17/ | Refill | [facility] | Analisa Jenkins, | Medication Refill | | 2012 | | MEDICINE [place] | [address] | | | | | [address] | [place] | | | | | [place] | [address] | | | | | [address] | | | | | | [phone] | | | +--------+--------+ + + + [...]
--- OUTSIDE RECORDS SUMMARY | ~2019-07-24 | XMS | Encounter Summary ---
Demographics + + + | Address | [address] | | | [place] [address] | + + + | Home Phone [...] | Author | [facility] | | | and [place] | + + + | Organization | [facility] | | | [...] | | | | | [place] [address] | | + + + + + | Valentín Saleh | ECON | [address] | | | | | [place] [address] | | + + + + + | Roberto Carlos Lennon | LEVI | Unknown | | + + + + + Care Team Providers + +------+ + | Care Data Management Manager Name | Role | Phone | [...] Description | +--------+--------+ + + + | 08/18/ | Refill | [facility] | Francois Pascal, | Medication Refill | | 2012 | | MEDICINE [place] | [address] | | | | | [address] | [address] [place], | | | | | [place] | [place] [address] | | | | | [address] | [phone] | | | | | [phone] | | | +--------+--------+ + + + [...]
--- OUTSIDE RECORDS SUMMARY | ~2019-07-24 | XMS | Encounter Summary ---
Demographics + + + | Address | [address] | | | [place] [address] | + + + | Home Phone [...] | Author | [facility] | | | and [place] | + + + | Organization | [facility] | [...] | | | | | [place] [address] | | + + + + + | Valentín Saleh | ECON | [address] | | | | | [place] [address] | | + + + + + | Roberto Carlos Lennon | LEVI | Unknown | | + + + + + Care Team Providers + +------+ + | Care Hardware Installation Coordinator Name | Role | Phone | + +------+ + | Francois Pascal MD | PCP | | + +------+ + Reason for Visit + + + | Reason | Comments | + + + | Medication Prior | Methotrexate | | Authorization | | + + + Encounter Details +--------+ + + + + | Date | Type | Department | Care Team | Description | +--------+ + + + + | 01/17/ | Telephone | [facility] | Francois Pascal, | Medication Prior | | 2013 | | MEDICINE [facility] | [address] | Authorization | | | | [place] | [address] [place], | (Methotrexate ) | | | | [place] [address] | [place] [address] | | | | | [phone] | [phone] | | | | | | | [...]
--- OUTSIDE RECORDS SUMMARY | ~2019-07-24 | XMS | Encounter Summary ---
Demographics + + + | Address | [address] | | | [place] [address] | + + + | Home Phone [...] + | Author | [facility] | | | and [place] | + + + | Organization | [facility] | [...] | | | | | [place] [address] | | + + + + + | Valentín Saleh | ECON | [address] | | | | | [place] [address] | | + + + + + | Roberto Carlos Lennon | LEVI | [place] | | + + + + + Care Team Providers + +------+ + | Care Clothing Examiner Name | Role | Phone | + +------+ + PCP | Unavailable | + +------+ + Encounter Details +--------+ + + + + | Date | Type | Department | Care Team | Description | +--------+ + + + + | 09/02/ | Hospital | [facility] | | | | 2006 | Encounter | MED CTR LABORATORY | | | | | | [address] | | | | | | [place] | | | | | | [address] | | | | | | [phone] | | | +--------+ + + + [...]
--- OUTSIDE RECORDS SUMMARY | ~2019-07-24 | XMS | Encounter Summary ---
Demographics + + + | Address | [address] | | | [place] [address] | + + + | Home Phone [...] | Author | [facility] | | | and [place] | + + + | Organization | [facility] | | [...] | | | | | [place] [address] | | + + + + + | Valentín Saleh | ECON | [phone] | | | | | [place] [address] | | + + + + + | Roberto Carlos Lennon | LEVI | Unknown | | + + + + + Care Team Providers + +------+ + | Care Supervisor Public Message Service Name | Role | Phone | + [...] Description | +--------+---------+ + + + | 04/12/ | Office | [facility] | Francois Pascal, | Diabetes mellitus | | 2018 | Visit | MEDICINE [address] | [address] | due to underlying | | | | [address] [place] | [address] [place], | condition with | | | | [place] [address] | [place] [address] | hyperglycemia, with | | | | [phone] | [phone] | long-term current | | | | | | use of insulin (HCC) | | | | | | (Primary Dx); | | | | | | CHRONIC KIDNEY | | | | | | DISEASE STAGE III | | | | | | (MODERATE); Impaired | | | | | | functional | | | | | | mobility, balance, | | | | | | gait, and endurance; | | | | | | Mild dementia (HCC) | +--------+---------+ + + + [...] + + + | Blood Pressure | 100/64 | 04/12/2017 11:19 AM | | | | | PST | | + + + + + | Pulse | 67 | 04/12/2017 11:19 AM | | | | | PST | | + + + + + | Temperature | 36.6 C (97.9 F) | 04/12/2017 11:19 AM | | | | | PST | | + + + + + | Respiratory Rate | - | - | | + + + + + | Oxygen Saturation | 92% | 04/12/2017 11:19 AM | | | | | PST | | + + + + + | Inhaled Oxygen | - | - | | | Concentration | | | | + + + + + | Weight | 64 kg (141 lb 1.5 | 04/12/2017 11:19 AM | | | | oz) | [...] encounter Progress Notes Francois Pascal MD - 04/12/2017 11:15 AM PSTFormatting of this note might be different f rom the original. Subjective: Patient ID: Alyson Lennon is a 86 y.o. female. HPI Dementia, recent Delerium Confusion slightly less confused. There is no burning with uri nation. Pt denies any confusion. Her states her confusion is a little better. S he states her mood is "not bad" Diabetes, She is on the lantus and novolog. She has no complaint of foot sore, Left hip fracture, Resulting physical deconditioning and Gait instability, Wheelchair ronald und since., S/p fall 07/[address] Barbosa. She is still not weight bearing and i s wheelchair bound at this point. She is not in therapy at this point. Glossitis/ Autoimmune Dermatitis, The skin on the forehead Flaky and red but is not painf ul or itchty at this point. CKD, this is worsened post op, She is trying to drink plenty of fluid. This is no follo wed by Kemar Mcclelland. Past Medical History: Type 2 DM with [...] VSD Father 50 Pneumonia Family Hx of Andrew's chorea Sister and 2 brothers: CAD, Andrew's Disease to [place] - with 2 Healthy Children No kidney disease in family. Social History: Born in [facility] for 46 years. and Remarried 2 sons [...] not bruise/bleed easily. Psychiatric/Behavioral: Neg for suicidal ideas, some confusion and no agitation. no Depression, no anxiety,no sleep problems Objective: BP 100/64 | Pulse 67 | Temp 36.6 C (97.9 F) (Temporal) | Wt 64 kg (141 lb 1.5 oz) | SpO2 92% | BMI 22.77 kg/m Physical Exam Heent, WNL, No carotid bruit Chest CTAB Heart RR&R /s M Abd S,NT,ND,BS+ Ext, no CCor E Neuro Non-focal Lymph, no cervical, axillary, inguinal adenopathy Musculoskeletal, no gross deformity or loss or range of motion Skin, no gross lesions Assessment: 1. Diabetes mellitus due to underlying condition with hyperglycemia, with long-term current use of insulin (HCC) 2. CHRONIC KIDNEY DISEASE STAGE III (MODERATE) 3. Impaired functional mobility, balance, gait, and endurance 4. Mild dementia Plan: A1C is due. MMSE today. RTC 3 months, Otherwise continue current medical regimen. documented in this encounter Plan of Treatment + +------+--------+ + + | Name | Type | Priori | Associated Diagnoses | Order Schedule | | | | ty | | | + +------+--------+ + + | Hemoglobin A1C | Lab | Routin | Diabetes mellitus | 1 Occurrences | | | | e | due to underlying | starting 04/12/2017 | | | | | condition with | until 04/12/2018 | | | | | hyperglycemia, with | | | | | | long-term current | | | | | | use of insulin (HCC) | | + +------+--------+ + + | Hemoglobin A1C | Lab | Routin | Diabetes mellitus | Expected: 07/11/2017 | | | | e | due to underlying | (Approximate), | | | | | condition with | Expires: 04/12/2018 | | | | | hyperglycemia, with [...] | LABS - EXTERNAL SCAN | | 05/03/2017 | | Results for this | | | | 12:00 AM | | procedure are in the | | | | PST | | results section. | + +--------+ + + + documented in this encounter Results LABS - EXTERNAL SCAN (05/03/2017 12:00 AM PST) + + + | Narrative | Performed At | + + + | Ordered by an | | | unspecified provider. | | + + + documented in this encounter Visit Diagnoses + + | Diagnosis | + + | Diabetes mellitus due to underlying condition with hyperglycemia, with long-term | | current use of insulin (HCC) - Primary | + + | CHRONIC KIDNEY DISEASE STAGE III (MODERATE) Chronic kidney disease, Stage III | | (moderate) | + + | Impaired functional mobility, balance, gait, and endurance | + + | Mild dementia (HCC) Dementia, unspecified, without behavioral disturbance | + + documented in this encounter
--- OUTSIDE RECORDS SUMMARY | ~2019-07-24 | XMS | Encounter Summary ---
Demographics + + + | Address | [address] | | | [place] [address] | + + + | Home Phone [...] | Author | [facility] | | | and [place] | + + + | Organization | [facility] | [...] | | | | | [place] [address] | | + + + + + | Valentín Saleh | ECON | [id number] | | | | | [place] [address] | | + + + + + | Roberto Carlos Lennon | LEVI | Unknown | | + + + + + Care Team Providers + +------+ + | Care Carrot Grader Inspector Name | Role | Phone | [...] + + | 11/14/ | Telephone | [facility] | Francois Pascal, | LABS | | 2012 | | MEDICINE [address] | [address] | | | | | [place] | [address], | | | | | [place] [address] | [place] [address] | | | | | [phone] | [phone] | | | | | | | [...]
--- OUTSIDE RECORDS SUMMARY | ~2019-07-24 | XMS | Encounter Summary ---
Demographics + + + | Address | [address] | | | [place] [address] | + + + | Home Phone [...] | [facility] | | | and [place] | + + + | Organization | [facility] | | [...] | | | | | [place] [address] | | + + + + + | Valentín Saleh | ECON | [phone] | | | | | [place] [address] | | + + + + + | Roberto Carlos Lennon | LEVI | [place] | | + + + + + Care Team Providers + +------+ + | Care Wafer Production Worker Name | Role | Phone | + +------+ + PCP | Unavailable | + +------+ + Encounter Details +--------+ + + + + | Date | Type | Department | Care Team | Description | +--------+ + + + + | 04/06/ | Hospital | [facility] | Roberto Carlos Tello, | | | 1993 | Encounter | MED CTR XRAY [address] | [address] [facility] | | | | | [place] | [place] | | | | | [place] [address] | [id number] | | | | | [phone] | | | +--------+ + + + [...]
--- OUTSIDE RECORDS SUMMARY | ~2019-07-24 | XMS | Encounter Summary ---
Demographics + + + | Address | [address] | | | [place] [address] | + + + | Home Phone [...] + | Author | [facility] | | | and [place] | + + + | Organization | [facility] [...] | | | | | [place] [address] | | + + + + + | Valentín Saleh | ECON | [phone] | | | | | [place] [address] | | + + + + + | Roberto Carlos Lennon | LEVI | Unknown | | + + + + + Care Team Providers + +------+ + | Care Small Animal Caretaker Name | Role | Phone | + +------+ + | Francois Pascal MD | PCP | | + +------+ + Encounter Details +--------+ + + + + | Date | Type | Department | Care Team | Description | +--------+ + + + + | 02/02/ | [facility] | [facility] | Francois Pascal, | | | 2016 | Encounter | MED CTR LABORATORY | [address] | | | | | [address] [place] | [address] [place], | | | | | [place] | [place] [address] | | | | | [address] | [phone] | | | | | [phone] | | | +--------+ + + + [...] | | 0 | | | | Ebccguw-Apzzpyiwm-Kb | mouth Daily. | | | | [...]
--- OUTSIDE RECORDS SUMMARY | ~2019-07-24 | XMS | Encounter Summary ---
Demographics + + + | Address | [address] | | | [place] [address] | + + + | Home Phone [...] | | | | | [place] [address] | | + + + + + | Valentín Saleh | ECON | [address] | | | | | [place] [address] | | + + + + + | Roberto Carlos Lennon | LEVI | Unknown | | + + + + + Care Team Providers + +------+ + | Care Cellar Worker Name | Role | Phone | [...] | instability | [address] | [place] | | | | [address] | [address] | [place], | | | | | (ICD-10-CM) | [place] | [place] [address] | | | | | - [address] | [place] | Phone: | | | | | (ICD-9-CM) - | [address] | [phone] | | | | | Gait | Phone: | Fax: | | | | | instability | [phone] | [phone] | | | | | Procedures | Fax: | | | | | | pt eval | [phone] | | +--------+ + + + + + Encounter Details +--------+---------+ + + + | Date | Type | Department | Care Team | Description | +--------+---------+ + + + | 01/20/ | Office | [facility] | Francois Pascal, | Posture imbalance | | 2015 | Visit | MED CTR THERAPY PT | MD [address] | (Primary Dx); | | | | OP [address] [place] | [address] [place], | Impaired functional | | | | [place] | [place] [address] | mobility, balance, | | | | [address] | [phone] | gait, and endurance; | | | | [phone] | | Left ankle pain | | | | | Cheyenne Caballero, | | | | | | RIVET TOSSER [address] | | | | | | [place] | | | | | | [address] | | | | | | | [...] Progress Notes Cheyenne Caballero PTA - 01/20/2015 1:48 PM PSTFormatting of this note might be different f rom the original. [facility] CTR THERAPY PT OP [address] [place] [address] Physical Therapy Daily Treatment Note Date: 01/20/2015 Patient Information Patient Name: Alyson Lennon Date of : 1930 Age: 84 y.o. Encounter Diagnoses Code Name Primary? R29.3 Posture imbalance Yes Z74.09 Impaired functional mobility, balance, gait, and endurance M25.572 Left ankle pain Date of Onset: 10/24/14 Referring Provider: Francois Pascal MD Rehab Precautions Office Visit from 12/24/2014 in [facility] CTR THERAPY PT OP Rehab Precautions Precautions Comments fall risk Start Time: 1300 Stop time: 1345 Duration: 45 minutes Timed Treatment Codes: 45 minutes # of PT Visits to Date: 6 Subjective: Her ankle is a little sore today. Pain Assessment Pain Scale Used: NUMERIC Pain Rating Pre Assessment: 3 Pain Rating Post Assessment: 2 Location: left ankle Objective: Education: perform HEP daily, goal is to feel a stretch with the movements Manual Therapy: to increase ROm Manual stretching into DF/PF, inversion, eversion Exercises to increase ankle ROM and strength- 2# for LAQ';s. 0# for seated marching [facility]le [facility] Neuromuscular re-ed to improve balance for safe ambulation, decrease fall risk- Standing on discs with head turns mod assist Standing on foam with head turns, eyes open/closed, with small [place] CGA-mod assist, stagger stance mod assist SLS, SLS on foam with hand on rail Clock and box stepping ex CGA-emphasis on equal step length, weight shifts Slow toe taps 4 inch step min assist without UE support Standing with one foot up on 4 inch step Assessment: Left foot pain increases with weight bearing, pt hesitant to shift weight to that side. Plan: Continue with manual therapy, strengthening, and balance training. Electronically signed by: Cheyenne Caballero PTA, 01/20/2015 13:48 Patient Name: Alyson Lennon/: 1930/ documented in [...]
--- OUTSIDE RECORDS SUMMARY | ~2019-07-24 | XMS | Encounter Summary ---
Demographics + + + | Address | [address] | | | [place] [address] | + + + | Home Phone [...] + | Author | [facility] | | | and [place] | + + + | Organization | [facility] [...] | | | | | [place] [address] | | + + + + + | Valentín Saleh | ECON | [address] | | | | | [place] [address] | | + + + + + | Roberto Carlos Lennon | LEVI | Unknown | | + + + + + Care Team Providers + +------+ + | Care Booster Pump Oiler Name | Role | Phone | [...] | [address] | [address] [place] | | | | | [place] | [address] [place] | | | | | [address] | [address] | | | | | [phone] | | | +--------+ + + + [...] AM PSTLabs for appointment 06/12/15 sent to [facility].Elec tronically signed by Aubree Pink RN at 05/09/2015 11:42 AM PSTdocumented in this encount er Plan of Treatment Not on filedocumented as of this encounter Visit Diagnoses Not on filedocumented in this encounter"
--- OUTSIDE RECORDS SUMMARY | ~2019-07-24 | XMS | Encounter Summary ---
Demographics + + + | Address | [address] | | | [place] [address] | + + + | Home Phone [...] | Author | [facility] | | | and [place] | + + + | Organization | [facility] [...] | | | | | [place] [address] | | + + + + + | Valentín Saleh | ECON | [address] | | | | | [place] [address] | | + + + + + | Roberto Carlos Lennon | LEVI | [place] | | + + + + + Care Team Providers + +------+ + | Care Devil Dog Name | Role | Phone | + +------+ + PCP | Unavailable | + +------+ + Encounter Details +--------+ + + + + | Date | Type | Department | Care Team | Description | +--------+ + + + + | 09/26/ | Hospital | [facility] | Moris Isabel | | | 2007 | Encounter | MED CTR LABORATORY | MD [address]iscila [address] | | | | | [address] [place] | [address] [place] | | | | | [place] | [place], [place] [address] | | | | | [address] | [phone] | | | | | [phone] | | | +--------+ + + + [...]
--- OUTSIDE RECORDS SUMMARY | ~2019-07-24 | XMS | Encounter Summary ---
Demographics + + + | Address | [address] | | | [place] [address] | + + + | Home Phone [...] | [facility] | | | and [place] | + + + | Organization | [facility] [...] | | | | | [place] [address] | | + + + + + | Valentín Saleh | ECON | [address] | | | | | [place] [address] | | + + + + + | Roberto Carlos Lennon | LEVI | Unknown | | + + + + + Care Team Providers + +------+ + | Care Surgical Lead Name | Role | Phone | + +------+ + | Francois Pascal MD | PCP | | + +------+ + Encounter Details +--------+ + + + + | Date | Type | Department | Care Team | Description | +--------+ + + + + | 06/13/ | Orders Only | [facility] [place] | [place], | CHRONIC KIDNEY | | 2012 | | NEPHROLOGY [address] | [address] | DISEASE STAGE III | | | | [address] | [address], [place] | (MODERATE) (Primary | | | | [place], [place] | [address] [place], [place] | Dx) | | | | [address] | [address] | | | | | [phone] | | | +--------+ + + + [...] + documented as of this encounter Progress Anika Root RN - 06/13/2012 9:25 AM PDTLab order for nephrology appt on 07/06/12 sent to [facility] lab. documented in t his encounter Plan of Treatment Not on filedocumented as of this encounter Visit Diagnoses + + | Diagnosis | + + | CHRONIC KIDNEY DISEASE STAGE III (MODERATE) - Primary Chronic kidney disease, Stage | | III (moderate) | + + documented in this encounter"
--- OUTSIDE RECORDS SUMMARY | ~2019-07-24 | XMS | Encounter Summary ---
Demographics + + + | Address | [address] | | | [place] [address] | + + + | Home Phone [...] | Author | [facility] | | | and [place] | + + + | Organization | [facility] [...] | | | | | [place] [address] | | + + + + + | Valentín Saleh | ECON | [phone] | | | | | [place] [address] | | + + + + + | Roberto Carlos Lennon | LEVI | Unknown | | + + + + + Care Team Providers + +------+ + | Care Blacksmith Hammer Operator Name | Role | Phone [...] | 08/09/ | Refill | [facility] [place] | Stephenie Paul, | Medication Refill | | 2013 | | CARDIOLOGY [address] | MD [address] [place] | | | | | [place], | [place], | | | | | [place] [address] | [place] [address] | | | | | [phone] | [phone] | | | | | | | [...]
--- OUTSIDE RECORDS SUMMARY | ~2019-07-24 | XMS | Encounter Summary ---
Demographics + + + | Address | [address] | | | [place] [address] | + + + | Home Phone [...] | [facility] | | | and [place] | + + + | Organization | [facility] | [...] | | | | | [place] [address] | | + + + + + | Valentín Saleh | ECON | [address] | | | | | [place] [address] | | + + + + + | Roberto Carlos Lennon | LEVI | Unknown | | + + + + + Care Team Providers + +------+ + | Care Ginseng Farmer Name | Role | Phone | + +------+ + | No, Physician | PCP | Unavailable | + +------+ + Encounter Details +--------+ + + + + | Date | Type | Department | Care Team | Description | +--------+ + + + + | 10/05/ | Lab | [facility] | [place], | Chronic kidney | | 2018 | Requisition | MED CTR LABORATORY | [address] | disease, stage III | | | | [address] [place] | [address], [facility] | (moderate); | | | | [place] | [address] [place] [address] | Age-related | | | | [address] | [address] | osteoporosis without | | | | [phone] | | current | | | | [...]
--- OUTSIDE RECORDS SUMMARY | ~2019-07-24 | XMS | Encounter Summary ---
Demographics + + + | Address | [address] | | | [place] [address] | + + + | Home Phone [...] | [facility] | | | and [place] | + + + | Organization | [facility] [...] | | | | | [place] [address] | | + + + + + | Valentín Saleh | ECON | [phone] | | | | | [place] [address] | | + + + + + | Roberto Carlos Lennon | LEVI | [place] | | + + + + + Care Team Providers + +------+ + | Care Web Content & Social Media Manager Name | Role | Phone | + +------+ + PCP | Unavailable | + +------+ + Encounter Details +--------+ + + + + | Date | Type | Department | Care Team | Description | +--------+ + + + + | 06/18/ | Hospital | [facility] | | | | 1997 | Encounter | MED CTR GENERIC OP | | | | | | CONV DEPT [address] | | | | | | [place], | | | | | | [place] [address] | | | | | | [phone] | | | +--------+ + + + [...]
--- OUTSIDE RECORDS SUMMARY | ~2019-07-24 | XMS | Encounter Summary ---
Demographics + + + | Address | [address] | | | [place] [address] | + + + | Home Phone [...] + + | Author | [facility] | | | and [place] | + + + | Organization | [facility] | | [...] | | | | | [place] [address] | | + + + + + | Valentín Saleh | ECON | [address] | | | | | [place] [address] | | + + + + + | Roberto Carlos Lennon | LEVI | Unknown | | + + + + + Care Team Providers + +------+ + | Care Sales Donor Recruitment Representative Name | Role | Phone | [...] Refill | | 2016 | | MEDICINE [facility] [address] | [address] | | | | | [facility] | [address], | | | | | [place] [address] | [place] [address] | | | | | [phone] | [phone] | | | | | | | [...]
--- OUTSIDE RECORDS SUMMARY | ~2019-07-24 | XMS | Encounter Summary ---
Demographics + + + | Address | [address] | | | [place] [address] | + + + | Home Phone [...] | [facility] | | | and [place] | + + + | Organization | [facility] [...] | | | | | [place] [address] | | + + + + + | Valentín Saleh | ECON | [address] | | | | | [place] [address] | | + + + + + | Roberto Carlos Lennon | LEVI | Unknown | | + + + + + Care Team Providers + +------+ + | Care Urologic Surgeon Name | Role | Phone | [...] | [address] | [address] [place] | (MODERATE) (Primary | | | | [place], [place] | [address] [place], [place] | Dx) | | | | [address] | [address] | | | | | [phone] | | | +--------+ + + + [...] encounter Progress Notes Zaynab Humphries RN - 12/29/2015 10:20 AM PDT01/22/16 [facility] Plan of Treatment Not on filedocumented as of this encounter Results Protein/Creatinine Ratio, Urine (01/20/2016 [...] [address] | [address] | [place] | [phone] | | [facility] | | [address] | | | - LABORATORY | | | | + + + + + Parathyroid Hormone, Intact (01/20/2016 10:01 AM PST) + +---------+ + + + | Component | Value | Ref Range | Performed | Pathologist | | | | | At | Signature | + +---------+ + + + | PTH Intact | 111 (H) | 12 - 88 pg/mL | MAR[facility]EL[facility] [...] [address] | [place] | [phone] | | [facility] | | [address] | | | - LABORATORY | | [...] mL/min/1.73m2 | [facility] | | | [facility] | | | MEDICAL | | | [...] [address] | [place] | [phone] | | [facility] | | [address] | | | - LABORATORY | | | | + + + + + documented in this encounter Visit Diagnoses + + | Diagnosis | + + | CHRONIC KIDNEY DISEASE STAGE III (MODERATE) - Primary Chronic kidney disease, Stage | | III (moderate) | + + documented in this encounter"
--- OUTSIDE RECORDS SUMMARY | ~2019-07-24 | XMS | Encounter Summary ---
Demographics + + + | Address | [address] | | | [place] [address] | + + + | Home Phone [...] Author | [facility] | | | and [place] | + + + | Organization | [facility] | | [...] | | | | | [place] [address] | | + + + + + | Valentín Saleh | ECON | [address] | | | | | [place] [address] | | + + + + + | Roberto Carlos Lennon | LEVI | [place] | | + + + + + Care Team Providers + +------+ + | Care Cycling Instructor Name | Role | Phone | + +------+ + PCP | Unavailable | + +------+ + Encounter Details +--------+ + + + + | Date | Type | Department | Care Team | Description | +--------+ + + + + | 03/29/ | Hospital | [facility] | | | | 2004 | Encounter | MED CTR XRAY [address] | | | | | | [place] | | | | | | [place] [address] | | | | | | [phone] | | | +--------+ + + + [...]
--- OUTSIDE RECORDS SUMMARY | ~2019-07-24 | XMS | Encounter Summary ---
Demographics + + + | Address | [address] | | | [place] [address] | + + + | Home Phone [...] | Author | [facility] | | | and [place] | + + + | Organization | [facility] [...] | | | | | [place] [address] | | + + + + + | Valentín Saleh | ECON | [id number] | | | | | [place] [address] | | + + + + + | Roberto Carlos Lennon | LEVI | Unknown | | + + + + + Care Team Providers + +------+ + | Care Ice Hockey Coach Name | Role | Phone | [...] Left ankle | [place], | [address] | | | | | pain | Glenn Richards MD | [place], | | | | | Procedures | [address] | [place] | | | | | [place] | [facility] | [address] | | | | | ARTHROCENTES | [place], [place] | Phone: | | | | | [place] | [address] | [phone] | | | | | ASPIR&/INJ | Phone: | Fax: | | | | | MAJOR | [phone] | [phone] | | | | | JT/BURSA W/O | Fax: | | | | | | [place] | [phone] | | | | | | TRIAMCINOLON | | | | | | | E ACET INJ | | | | | | | NOS, 10 MG | | | | | | | [place] | | | | | | | [...] + + | 07/14/ | Hospital | [facility] | Glenn Miramontes | 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 | | | | | [...] | as needed. | | 0 | 01/28/20 | | | (LIDEX) 0.05% cream | [...] | | | | | | mellitus) ([facility]) | | | | | | + [...] AND POST-TRAUMATIC ARTHRITIS Alyson Leyva | [facility] | | Saji presents to the fluoroscopy suite for a [facility] | | fluoroscopically-guided left intraarticular ankle injection [...] + | [facility] | [address] | [place], [place] | [phone] | | [facility] | | [address] | | | - IMAGING | | [...] | | | | | Other, ONCE, 07/15/15 at 1630, | | PM PDT [...]
--- OUTSIDE RECORDS SUMMARY | ~2019-07-24 | XMS | Encounter Summary ---
Demographics + + + | Address | [address] | | | [place] [address] | + + + | Home Phone [...] Author | [facility] | | | and [place] | + + + | Organization | [facility] [...] | | | | | [place] [address] | | + + + + + | Valentín Saleh | ECON | [address] | | | | | [place] [address] | | + + + + + | Roberto Carlos Lennon | LEVI | [place] | | + + + + + Care Team Providers + +------+ + | Care Painter Chassis Name | Role | Phone | + +------+ + PCP | Unavailable | + +------+ + Encounter Details +--------+ + + + + | Date | Type | Department | Care Team | Description | +--------+ + + + + | 10/20/ | Hospital | [facility] | | | | 1999 | Encounter | MED CTR ICU [address] | | | | | | [place], | | | | | | [place] [address] | | | | | | [phone] | | | +--------+ + + + [...]
--- OUTSIDE RECORDS SUMMARY | ~2019-07-24 | XMS | Encounter Summary ---
Demographics + + + | Address | [address] | | | [place] [address] | + + + | Home Phone [...] + | Author | [facility] | | | and [place] | + + + | Organization | [facility] | | | and [place] | + + + | Address | Unknown | + + + | Phone | Unavailable | + + + Support + + + + + | Name | Relationship | Address | Phone | + + + + + | Sigrid Lennon | ECON | [address] | | | | | [place] [address] | | + + + + + | Valentín Saleh | ECON | [address] | | | | | [place] [address] | | + + + + + | Roberto Carlos Lennon | LEVI | [place] | | + + + + + Care Team Providers + +------+ + | Care Equipment Engineering Technician Name | Role | Phone | + +------+ + PCP | Unavailable | + +------+ + Encounter Details +--------+ + + + + | Date | Type | Department | Care Team | Description | +--------+ + + + + | 11/02/ | Hospital | [facility] | | | | 2005 | Encounter | MED CTR LABORATORY | | | | | | [address] | | | | | | [place] | | | | | | [address] | | | | | | [phone] | | | +--------+ + + + [...]
--- OUTSIDE RECORDS SUMMARY | ~2019-07-24 | XMS | Encounter Summary ---
Demographics + + + | Address | [address] | | | [place] [address] | + + + | Home Phone [...] | Author | [facility] | | | and [place] | + + + | Organization | [facility] | [...] | | | | | [place] [address] | | + + + + + | Valentín Saleh | ECON | [address] | | | | | [place] [address] | | + + + + + | Roberto Carlos Lennon | LEVI | Unknown | | + + + + + Care Team Providers + +------+ + | Care Pharmacy Technology Instructor Name | Role | Phone | [...] | [address] | [address], [place] | (MODERATE) (Primary | | | | [place], [place] | [address] [facility] [place] | Dx) | | | | [address] | [address] | | | | | [phone] | | | +--------+ + + + [...] PSTLabs for upcoming nephrology appointment sent to: [facility] documented in t his encounter Plan of Treatment Not on filedocumented as of this encounter Visit Diagnoses + + | Diagnosis | + + | CHRONIC KIDNEY DISEASE STAGE III (MODERATE) - Primary Chronic kidney disease, Stage | | III (moderate) | + + documented in this encounter"
--- OUTSIDE RECORDS SUMMARY | ~2019-07-24 | XMS | Encounter Summary ---
Demographics + + + | Address | [address] | | | [place] [address] | + + + | Home Phone [...] + | Author | [facility] | | | and [place] | + + + | Organization | [facility] | | | [...] | | | | | [place] [address] | | + + + + + | Valentín Saleh | ECON | [phone] | | | | | [place] [address] | | + + + + + | Roberto Carlos Lennon | LEVI | Unknown | | + + + + + Care Team Providers + +------+ + | Care Working Second Hand Name | Role | Phone | + +------+ + | Farncois Pascal MD | PCP | | + +------+ + Reason for Visit + + + | Reason | Comments | + + + | Medication Follow-up | | + + + Encounter Details +--------+ + + + + | Date | Type | Department | Care Team | Description | +--------+ + + + + | 04/29/ | Telephone | [facility] | [place], | Medication Follow-up | | 2017 | | NEPHROLOGY [address] | [address] | | | | | [address] | [address], [place] | | | | | [place] | [address] [place] | | | | | [address] | [address] | | | | | [phone] | | | +--------+ + + + [...]
--- OUTSIDE RECORDS SUMMARY | ~2019-07-24 | XMS | Encounter Summary ---
Demographics + + + | Address | [address] | | | [place] [address] | + + + | Home Phone [...] Author | [facility] | | | and [place] | + + + | Organization | [facility] [...] | | | | | [place] [address] | | + + + + + | Valentín Saleh | ECON | [phone] | | | | | [place] [address] | | + + + + + | Roberto Carlos Lennon | LEVI | Unknown | | + + + + + Care Team Providers + +------+ + | Care Leader Writer Name | Role | Phone | + +------+ + | Francois Pascal MD | PCP | | + +------+ + Reason for Visit +--------+ + | Reason | Comments | +--------+ + | Fall | Fall with injury to the head | +--------+ + Encounter Details +--------+ + + + + | Date | Type | Department | Care Team | Description | +--------+ + + + + | 06/17/ | Telephone | [facility] | Francois Pascal, | Fall (Fall with | | 2015 | | MEDICINE [facility] Sergio | [address] | injury to the head) | | | | Beatrice Yesika | [address], | | | | | [place] [address] | [place] [address] | | | | | [phone] | [phone] | | | | | | | [...]
--- OUTSIDE RECORDS SUMMARY | ~2019-07-24 | XMS | Encounter Summary ---
Demographics + + + | Address | [address] | | | [place] [address] | + + + | Home Phone [...] | Author | [facility] | | | and [place] | + + + | Organization | [facility] [...] | | | | | [place] [address] | | + + + + + | Valentín Saleh | ECON | [address] | | | | | [place] [address] | | + + + + + | Roberto Carlos Lennon | LEVI | Unknown | | + + + + + Care Team Providers + +------+ + | Care Laboratory Geneticist Name | Role | Phone | + [...] | | | Services | | | Farncois Tello MD | MD Stephenie | | | Required | | Atherosclero | [address] | [address] | | | | | sis of | [address] | [address] | | | | | [place] | [place] | [place], | | | | | coronary | [place], [place] | [place] [address] | | | | | artery of | [address] | Phone: | | | | | [place] heart | Phone: | [phone] | | | | | without | [phone] | Fax: | | | | | angina | Fax: | [phone] | | | | | pectoris | [phone] | | | | | | Procedures | | | | | | | FOLLOW UP | | | +--------+ + + + + + Reason for Visit + + + | Reason | Comments | + + + | Referral (Follow up) | MORASCH/REFERRAL REQUEST/ DOS 05/03/19 | + + + Encounter Details +--------+ + + + + | Date | Type | Department | Care Team | Description | +--------+ + + + + | 04/10/ | Telephone | [facility] | Francois Pascal, | Referral (Follow up) | | 2019 | | [facility] [place] [facility] | [address] | (MORASCH/REFERRAL | | | | MEDICINE [place] | [place], | REQUEST/ DOS | | | | [address] | [place] [address] | 05/03/19) | | | | [address], | [phone] | | | | | [place] [address] | | | | | | [phone] | | | +--------+ + + + [...] to Cardiology | Referral | e | [place] coronary | | | | | | artery of [place] | | | | | | heart without angina | | | | | | pectoris | | + + +--------+ + + documented as of this encounter Visit Diagnoses + + | Diagnosis | + + | Atherosclerosis of [place] coronary artery of [place] heart without angina pectoris - | | Primary | + + documented in this encounter"
--- OUTSIDE RECORDS SUMMARY | ~2019-07-24 | XMS | Encounter Summary ---
Demographics + + + | Address | [address] | | | [place] [address] | + + + | Home Phone [...] Author | [facility] | | | and [place] | + + + | Organization | [facility] | [...] | | | | | [place] [address] | | + + + + + | Valentín Saleh | ECON | [address] | | | | | [place] [address] | | + + + + + | Roberto Carlos Lennon | LEVI | [place] | | + + + + + Care Team Providers + +------+ + | Care Metallurgical Engineering Teacher Name | Role | Phone | + +------+ + PCP | Unavailable | + +------+ + Encounter Details +--------+ + + + + | Date | Type | Department | Care Team | Description | +--------+ + + + + | 04/16/ | Hospital | [facility] | | | | 2009 | Encounter | MED CTR EMERGENCY | | | | | | CENTER [address] | | | | | | [place] | | | | | | [address] | | | | | | [phone] | | | +--------+ + + + [...]
--- OUTSIDE RECORDS SUMMARY | ~2019-07-24 | XMS | Encounter Summary ---
Demographics + + + | Address | [address] | | | [place] [address] | + + + | Home Phone [...] Author | [facility] | | | and [place] | + + + | Organization | [facility] | | | [...] | | | | | [place] [address] | | + + + + + | Valentín Saleh | ECON | [address] | | | | | [place] [address] | | + + + + + | Roberto Carlos Lennon | LEVI | Unknown | | + + + + + Care Team Providers + +------+ + | Care Roof Foreman Name | Role | Phone | + [...] | [address] | [address] | | | | | ([facility]) | [place] | [place], | | | | | | [place], [place] | [place] | | | | | | [address] | [address] | | | | | | Phone: | Phone: | | | | | | [phone] | [phone] | | | | | | Fax: | Fax: | | | | | | [phone] | [phone] | +--------+ + + + + + Reason for Visit +---------+ + | Reason | Comments | +---------+ + | Results | Lab | +---------+ + Encounter Details +--------+---------+ + + + | Date | Type | Department | Care Team | Description | +--------+---------+ + + + | 09/18/ | Office | [facility] | Francois Pascal, | HYPERTENSION NEC | | 2014 | Visit | MEDICINE [address] [place] [address] | [address] | (Primary Dx); | | | | Street [facility] | [address] [place], | CHRONIC KIDNEY | | | | [place] [address] | [place] [address] | DISEASE STAGE III | | | | [phone] | [phone] | (MODERATE); DM | | | | [...] this encounter Progress Francois Borden MD - 09/18/2013 11:00 AM PDTFormatting of [...] It still feeling sore though. 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 CKD, She urinates normally. 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 Social History: Reviewed history from 08/11/2011 and no changes required: Born in [facility] for 46 years. and Remarried 2 sons [...] - 1.030 | [facility] | | | [place], | | | [facility] | | [...] + | [facility] | [address] | [place], [place] | [phone] | | [facility] | | [address] | | | - LABORATORY | | | | + + + + + | [facility] | [address] | [place], [place] | | | [facility] | | [address] [place] [address] | | | - LABORATORY | | [...] | Estimated | 177 | mg/dL | MARISELA | | | [...] + | [facility] | [address] | [place], [place] | [phone] | | [facility] | | [address] | | | - LABORATORY | | | | + + + + + | [facility] | [address] | [place], [place] | | | [facility] | | [address] | | | - LABORATORY | | | | + + + + + CBC with Differential (12/18/2013 10:11 AM PDT) + + + + + + | Component | Value | Ref Range | Performed | Pathologist | | | | | At | Signature | + + + + + + | WBC | 11.3 (H) | 4.0 - 11.0 [...] [facility] [facility] | [place] | [phone] | | [facility] | | [address] | | | - LABORATORY | | | | + + + + + | [facility] | [address] | [place] | | | [facility] | | [address], [facility] | | | [...] | | GLOMERULAR FILTRATION | mL/min/1.73m2 | [facility] | | | GREEK | RATE,ESTIMATED | | MEDICAL | | | | mL/min/1.03o2Ynip than | | CENTER - | | [...] | 9.8 | 8.3 - 10.5 | [facility] | | | | | mg/dL | [facility] | | | | | | MEDICAL | | | | | | CENTER - | | | | | | LABORATORY | | + + + + + + | Albumin | 3.7 | 3.2 - 5.0 g/dL | [facility] | | | | | | [facility] | | | | | [...] + | [facility] | [address] | [place] | [phone] | | [facility] | | [address] | | | - LABORATORY | | | | + + + + + | [facility] | [address] | [place] | | | [facility] | | [address], [facility] | | | [...]
--- OUTSIDE RECORDS SUMMARY | ~2019-07-24 | XMS | Encounter Summary ---
Demographics + + + | Address | [address] | | | [place] [address] | + + + | Home Phone [...] | [facility] | | | and [place] | + + + | Organization | [facility] | | [...] | | | | | [place] [address] | | + + + + + | Valentín Saleh | ECON | [address] | | | | | [place] [address] | | + + + + + | Roberto Carlos Lennon | LEVI | [place] | | + + + + + Care Team Providers + +------+ + | Care Recreation Technician Name | Role | Phone | + +------+ + PCP | Unavailable | + +------+ + Encounter Details +--------+ + + + + | Date | Type | Department | Care Team | Description | +--------+ + + + + | 03/04/ | Hospital | [facility] | Mauricio Rider | | | 2009 | Encounter | MED CTR LABORATORY | MD [place] [address] [place] [address] | | | | | [address] | [place] | | | | | [place] | [address] | | | | | [address] | | | | | | [phone] | | | +--------+ + + + [...]
--- OUTSIDE RECORDS SUMMARY | ~2019-07-24 | XMS | Encounter Summary ---
Demographics + + + | Address | [address] | | | [place] [address] | + + + | Home Phone [...] | Author | [facility] | | | and [place] | + + + | Organization | [facility] | | [...] + | Valentín Saleh | ECON | [address] | | | | | [place] [address] | | + + + + + | Roberto Carlos Lennon | LEVI | Unknown | | + + + + + Care Team Providers + +------+ + | Care Work Study Student Name | Role | Phone | + +------+ + | Francois Pascal MD | PCP | | + +------+ + Encounter Details +--------+ + + + + | Date | Type | Department | Care Team | Description | +--------+ + + + + | 06/23/ | Hospital | [facility] | Francois Pascal, | DM (diabetes | | 2013 | Encounter | MED CTR LABORATORY | [address] | mellitus) ([facility]); | | | | [address] [place] | [address] [place], | CHRONIC KIDNEY | | | | [place], [place] | [place] [address] | DISEASE STAGE III | | | | [address] | [phone] | (MODERATE); | | | | [phone] | | ARTHRITIS, CHRONIC | +--------+ + [...] | e | 9:32 AM | mellitus) ([facility]) | procedure are in the | | [...] 3.2 | 2.5 - 4.6 mg/dL | [facility] [...] + | [facility] | [address] | [place], [place] | [phone] | | [facility] | | [address] | | | - LABORATORY | | | | + + + + + | [facility] | [address] | [place], [place] | | | [facility] | | [address] [place] [address] | | | - LABORATORY | | [...] performed on the Miguelito | | [facility] | | | | [facility] | [...] + | [facility] | [address] | [place] | [phone] | | [facility] | | [address] | | | - LABORATORY | | | | + + + + + | [facility] | [address] | [place], [place] | | | [facility] | | [id number] [place] [address] | | | - LABORATORY | | [...] + | [facility] | [address] | [place], [place] | [phone] | | [facility] | | [address] | | | - LABORATORY | | | | + + + + + | [facility] | [address] | [place], [place] | | | [facility] | | [address], [facility] | | [...] + | [facility] | [address] | [place] | [phone] | | [facility] | | [address] | | | - LABORATORY | | | | + + + + + | [facility] | [address] | [place], [place] | | | [facility] | | [address] | | [...] + | [facility] | [address] | [place], [place] | [phone] | | [facility] | | [address] | | | - LABORATORY | | | | + + + + + | [facility] | [address] | [place], [place] | | | [facility] | | [address] | | | - LABORATORY [...]
--- OUTSIDE RECORDS SUMMARY | ~2019-07-24 | XMS | Encounter Summary ---
Demographics + + + | Address | [address] | | | [place] [address] | + + + | Home Phone [...] Author | [facility] | | | and [place] | + + + | Organization | [facility] | [...] | | | | | [place] [address] | | + + + + + | Valentín Saleh | ECON | [address] | | | | | [place] [address] | | + + + + + | Roberto Carlos Lennon | LEVI | [place] | | + + + + + Care Team Providers + +------+ + | Care Adult High School Instructor Name | Role | Phone | + +------+ + PCP | Unavailable | + +------+ + Encounter Details +--------+ + + + + | Date | Type | Department | Care Team | Description | +--------+ + + + + | 01/18/ | Hospital | [facility] | tSephenie Paul, | | | 2002 | Encounter | MED CTR GENERIC OP | MD [address] | | | | | CONV DEPT [address] [place], | | | | | [place], | [place] [address] | | | | | [place] [address] | [phone] | | | | | [phone] | | | +--------+ + + + [...]
--- OUTSIDE RECORDS SUMMARY | ~2019-07-24 | XMS | Encounter Summary ---
Demographics + + + | Address | [address] | | | [place] [address] | + + + | Home Phone [...] Author | [facility] | | | and [place] | + + + | Organization | [facility] | | | [...] | | | | | [place] [address] | | + + + + + | Valentín Saleh | ECON | [address] | | | | | [place] [address] | | + + + + + | Roberto Carlos Lennon | LEVI | [place] | | + + + + + Care Team Providers + +------+ + | Care Employee Benefits Insurance Agent Name | Role | Phone | + +------+ + PCP | Unavailable | + +------+ + Encounter Details +--------+ + + + + | Date | Type | Department | Care Team | Description | +--------+ + + + + | 10/29/ | Hospital | [facility] | | | | 2002 | Encounter | MED CTR XRAY [address] | | | | | | [place] | | | | | | [place] [address] | | | | | | [phone] | | | +--------+ + + + [...]
--- OUTSIDE RECORDS SUMMARY | ~2019-07-24 | XMS | Encounter Summary ---
Demographics + + + | Address | [address] | | | [place] [address] | + + + | Home Phone [...] | Author | [facility] | | | and [place] | + + + | Organization | [facility] | [...] | | | | | [place] [address] | | + + + + + | Valentín Saleh | ECON | [address] | | | | | [place] [address] | | + + + + + | Roberto Carlos Lennon | LEVI | Unknown | | + + + + + Care Team Providers + +------+ + | Care Retort Cooler Name | Role | Phone | + [...] + + | Closed | Specialty | Orthopedic | Diagnoses | | Don, | | | Services | Surgery | Primary | Kulwinder, | Trevor Wilson MD | | | Required | | osteoarthrit | Glenn Richards MD | [address] | | | | | is of left | [address] | [place] | | | | | ankle | [place] | [place] | | | | | Procedures | [place] | [address] | | | | | Sent to [facility] | [address] | Phone: | | | | | 10/05 | Phone: | [phone] | | | | | | [phone] | Fax: | | | | | | Fax: | [phone] | | | | | | [phone] | | +--------+ + + + + + Reason for Visit + + + | Reason | Comments | + + + | Referral | | + + + Encounter Details +--------+ + + + + | Date | Type | Department | Care Team | Description | +--------+ + + + + | 10/02/ | Telephone | [facility] | Glenn Miramontes | Referral | | 2015 | | PHYSIATRY [address] | [address] | | | | | [address] | [address] [place], [place] | | | | | [place], [place] | [address] | | | | | [address] | | | | | | [phone] | | | +--------+ + + + [...] Ambulatory referral | Outpatient | Routin | Primary | Ordered: 10/06/2015 | | to Orthopedic | Referral | e | osteoarthritis of | | | Surgery | | | left ankle | | + + +--------+ + + documented as of this encounter Visit Diagnoses + + | Diagnosis | + + | Primary osteoarthritis of left ankle - Primary | + + documented in this encounter"
--- OUTSIDE RECORDS SUMMARY | ~2019-07-24 | XMS | Encounter Summary ---
Demographics + + + | Address | [address] | | | [place] [address] | + + + | Home Phone [...] | Author | [facility] | | | and [place] | + + + | Organization | [facility] | | | [...] | | | | | [place] [address] | | + + + + + | Valentín Saleh | ECON | [address] | | | | | [place] [address] | | + + + + + | Roberto Carlos Lennon | LEVI | Unknown | | + + + + + Care Team Providers + +------+ + | Care Petroleum Engineering Teacher Name | Role | Phone [...] | 02/20/ | Refill | [facility] [place] | Stephenie Paul, | Medication Refill | | 2013 | | CARDIOLOGY [address] | MD [address] | | | | | [place], | [place], | | | | | [place] [address] | [place] [address] | | | | | [phone] | [phone] | | | | | | | [...]
--- OUTSIDE RECORDS SUMMARY | ~2019-07-24 | XMS | Encounter Summary ---
Demographics + + + | Address | [address] | | | [place] [address] | + + + | Home Phone [...] Author | [facility] | | | and [place] | + + + | Organization | [facility] [...] | | | | | [place] [address] | | + + + + + | Valentín Saleh | ECON | [address] | | | | | [place] [address] | | + + + + + | Roberto Carlos Lennon | LEVI | Unknown | | + + + + + Care Team Providers + +------+ + | Care Hvac Designer Name | Role | Phone | + +------+ + | Francois Pascal MD | PCP | | + +------+ + Reason for Visit + + + | Reason | Comments | + + + | Chronic Kidney | | | Disease, Stage II | | + + + Evaluate & [...] | disease, | [address] | [facility] [address] | | | | | stage 3 | [place] | [address], | | | | | (moderate) | [place] | [address] | | | | | (HCC) | [address] | [place], | | | | | Hypertension | Phone: | [place] [address] | | | | | , renal | [phone] | Phone: | | | | | disease | Fax: | [phone] | | | | | Procedures | [phone] | Fax: | | | | | [place] OFFICE | | [phone] | | | | | OUTPATIENT | | | | | | | VISIT 25 | | | | | | | MINUTES | | | +--------+--------+ + + + + Encounter Details +--------+---------+ + + + | Date | Type | Department | Care Team | Description | +--------+---------+ + + + | 10/13/ | Office | [facility] [place] | [place], | Chronic kidney | | 2018 | Visit | NEPHROLOGY [address] | [address] | disease, stage II | | | | [address] | [address], [place] | (mild) (Primary Dx); | | | | [place] | [address] | Hypertension, renal | | | | [address] | [address] | disease, stage 1-4 | | | | [phone] | | or unspecified | | | | | | chronic kidney | | | | | | disease; | | | | | | Uncontrolled type 2 | | | | | | diabetes mellitus | | | | | | with stage 2 chronic | | | | | | kidney disease, | | | | | | unspecified whether | | | | | | intermediate insulin | | | | | | use (HCC); Vitamin D | | | | [...] + + + | Blood Pressure | 102/58 | 10/13/2017 2:38 PM | | | | | PDT | | + + + + + | Pulse | 60 | 10/13/2017 2:38 PM | | | | | PDT | | + + + + + | Temperature | - | - | | + + + + + | Respiratory Rate | - | - | | + + + + + | Oxygen Saturation | 95% | 10/13/2017 2:38 PM | | | | | PDT | | + + + + + | Inhaled Oxygen | - | - | | | Concentration | | | | + + + + + | Weight | 65.3 kg (144 lb) | 10/13/2017 2:38 PM | 10/01/17-Renee Giang | | | | PDT | | + + + + + | Height | - | - | | + + + + + | Body Mass Index | 23.24 | 08/02/2017 12:37 PM | | | [...] encounter Progress Notes Kemar Herndon ARNP - 10/13/2017 2:30 PM PDTFormatting of this note might be diff erent from the original. Nephrology Follow-up Visit Visit date: 10/13/2017 Primary care provider: Francois Pascal MD Follow-up type: 6 months HPI: Alyson Lennon is a 86 y.o. 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 -type 2 diabetes mellitus with neuropathy -hypertension -CAD with CABG x 3 vessels 1996 followed by cardiology, LAURO Painting -serum creatinine has fluctuated from 1.1-1.4 mg/dl since 2010, infrequently 1.6-1.7 mg/dl; now 0.7-0.9 mg/dl Alyson is here with her Sigrid. She fell in July and fractured left hip. Since then hope s been at [facility] for rehab. Her weight has been stable and blood pressure at care facility last week was 156 mmHg systo lic. She reports lower extremity edema, does not think it is worse than usual. Review of Systems Constitutional: Negative for appetite change, fatigue (Chronic) and unexpected weight koo e. Respiratory: Negative for shortness of breath. Cardiovascular: Positive for leg swelling (left LE, s/p surgery due to broken ankle). Negat geovany for chest pain. Gastrointestinal: Negative for nausea and vomiting. Genitourinary: Negative for dysuria, frequency and hematuria. 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 Note Last Updated: 12/16/2015 Problem list slat basket top maker utility Preventative health care 03/23/2012 Note Last Updated: 09/27/2012 CRSC:03/23/2002normal except for redundancy and atonicity Next Due: Mammo:03/02/2012 benign Next:03/02/2013 Pap:03/24/2009 negative Next: CAROTID STENOSIS AMAUROSIS FUGAX DEMYELINATING DISEASE, CENTRAL NERVOUS SYSTEM FRACTURE, ANKLE, LEFT VITAMIN D DEFICIENCY Hypertension, renal disease DM type 2, uncontrolled, with renal complications (HCC) Coronary artery disease involving eastern cherokee coronary artery of eastern cherokee heart without angina pectoris Note Last Updated: [...] Outpatient Prescriptions Marked as Taking for the 10/13/17 encounter (Office Visit) with LAURO Hauser Medication [...] rectally Daily as needed for Constipation. 0 Vqbpvsr-Qdsuwoswm-Mirjkmx D (CALCIUM 500 PO) Take 1 tablet [...] 15 mg by mouth Daily (with dinner). Allergies Allergen Reactions Codeine Sulfate Nausea And Vomiting Darvon Nausea Only Estrogens Patient can't remember Pneumococcal Vaccines Other (See Comments) Thinks it was a Prevnar, arm became red/sore/swollen BP 102/58 | Pulse 60 | Wt 65.3 kg (144 lb) Comment: 10/01/17-[facility] [place] | SpO2 95% | BMI 23.24 kg/m Physical Exam Constitutional: She is oriented to person, place, and time. She appears well-developed and well-nourished. No distress. Neck: Neck supple. Cardiovascular: Normal rate. An irregularly irregular rhythm present. Exam reveals no gall op and no friction rub. No murmur heard. Pulmonary/Chest: Effort normal and breath sounds normal. No respiratory distress. She has n o wheezes. She has no rhonchi. She has no rales. Poor respiratory effort. Abdominal: Soft. Bowel sounds are normal. Musculoskeletal: She exhibits edema (1-2+ edema lower extremities, left>right). Neurological: She is alert and oriented to person, place, and time. Skin: Skin is warm. No rash noted. Psychiatric: Her speech is normal. Vitals reviewed. Reviewed labs with patient. Lab Requisition on 10/11/2017 Component Date Value Ref Range Status PTH Intact 10/11/2017 42 12 - 88 pg/mL Final Lab Requisition on 10/03/2017 Component Date Value Ref Range Status Hemoglobin A1c 10/03/2017 9.7* 4.3 - 6.0 % Final Estimated Average Glucose 10/03/2017 232 mg/dL Final Extra Plain Red Top Tube 10/03/2017 Done Final NA 10/03/2017 134* 136 - 149 mmol/L Final K 10/03/2017 4.4 3.5 - 5.1 mmol/L Final CL 10/03/2017 100 98 - 109 mmol/L Final CO2 10/03/2017 25 24 - 31 mmol/L Final ANION GAP 10/03/2017 9 3 - 16 mmol/L Final GLUCOSE 10/03/2017 165* 70 - 109 mg/dL Final BUN 10/03/2017 15 7 - 18 mg/dL Final Creatinine, Serum/Plasma 10/03/2017 0.69 0.60 - 1.30 mg/dL Final eGFR if not 10/03/2017 >60 >=60 mL/min/1.73m2 Final CALCIUM 10/03/2017 8.7 8.3 - 10.5 mg/dL Final ALBUMIN 10/03/2017 2.8* 3.2 - 5.0 g/dL Final PHOSPHORUS 10/03/2017 3.4 2.5 - 4.6 mg/dL Final BUN/CREA 10/03/2017 21.7 Final Vitamin D, 25 Hydroxy 10/03/2017 22* 30 - 80 ng/mL Final ASSESSMENT AND PLAN: ICD-10-CM ICD-9-CM 1. Chronic kidney disease, stage II (mild) N18.2 585.2 -stable to improved kidney function -sub nephrotic range proteinuria in the past -no hyperkalemia -work on glycemic control to help preserve renal function 2. Hypertension, renal disease, stage 1-4 or unspecified chronic kidney disease I12.9 403.9 0 Blood pressure low normal today, above goal at facility. Edema appears worse than last visit. Though weight is similar. Recommend that patient follo w up with cardiology and/or primary care for further evaluation if it does not improve. She may need diuretic therapy. 3. Uncontrolled type 2 diabetes mellitus with stage 2 chronic kidney disease, unspecified w hether intermediate insulin use (HCC) E11.22 250.42 Hb A1c is high. Follow up with primary care for management. E11.65 585.2 N18.2 4. Vitamin D deficiency E55.9 268.9 Vitamin D is low. Serum calcium and phosphorus are cont rolled, PTH is fine. -cholecalciferol 2000 iu daily Return in about 1 year (around 10/13/2018). Labs: renal panel, CBC, urine protein/cr ratio, vitamin D 25 OH Written instructions given for care facility. CC: MD Charla Martinez ARNP [facility] documented i n this encounter Plan of Treatment Not on filedocumented as of this encounter Visit Diagnoses + + | Diagnosis | + + | Chronic kidney disease, stage II (mild) - Primary Chronic kidney disease, Stage II | | (mild) | + + | Hypertension, renal disease, stage 1-4 or unspecified chronic kidney disease | + + | Uncontrolled type 2 diabetes mellitus with stage 2 chronic kidney disease, unspecified | | whether assistant manager retail insulin use | + + | Vitamin D deficiency Unspecified vitamin D deficiency | + + documented in this encounter
--- OUTSIDE RECORDS SUMMARY | ~2019-07-24 | XMS | Encounter Summary ---
Demographics + + + | Address | [address] | | | [place] [address] | + + + | Home Phone [...] | Author | [facility] | | | and [place] | + + + | Organization | [facility] | [...] | | | | | [place] [address] | | + + + + + | Valentín Saleh | ECON | [address] | | | | | [place] [address] | | + + + + + | Roberto Carlos Lennon | LEVI | Unknown | | + + + + + Care Team Providers + +------+ + | Care Search Engine Optimization Strategist Name | Role | Phone | + +------+ + | Francois Pascal MD | PCP | | + +------+ + Reason for Visit + + + | Reason | Comments | + + + | Paperwork | | + + + Encounter Details +--------+ + + + + | Date | Type | Department | Care Team | Description | +--------+ + + + + | 06/09/ | Telephone | [facility] | Francois Pascal, | Paperwork | | 2019 | | MEDICINE [place] | [address] | | | | | [address] | [address] [place], | | | | | [place] | [place] [address] | | | | | [address] | [phone] | | | | | [phone] | | | +--------+ + + + [...]
--- OUTSIDE RECORDS SUMMARY | ~2019-07-24 | XMS | Encounter Summary ---
Demographics + + + | Address | [address] | | | [place] [address] | + + + | Home Phone [...] | [facility] | | | and [place] | + + + | Organization | [facility] | | | and [...] | | | | | [place] [address] | | + + + + + | Valentín Saleh | ECON | [id number] | | | | | [place] [address] | | + + + + + | Roberto Carlos Lennon | LEVI | [place] | | + + + + + Care Team Providers + +------+ + | Care Core Checker Name | Role | Phone | + +------+ + PCP | Unavailable | + +------+ + Encounter Details +--------+ + + + + | Date | Type | Department | Care Team | Description | +--------+ + + + + | 01/20/ | Hospital | [facility] | | | | 1997 | Encounter | MED CTR XRAY [address] | | | | | | [place] | | | | | | [place] [address] | | | | | | [phone] | | | +--------+ + + + [...]
--- OUTSIDE RECORDS SUMMARY | ~2019-07-24 | XMS | Encounter Summary ---
Demographics + + + | Address | [address] | | | [place] [address] | + + + | Home Phone [...] + | Author | [facility] | | | and [place] | + + + | Organization | [facility] | | | and [place] | + + + | Address | Unknown | + + + | Phone | Unavailable | + + + Support + + + + + | Name | Relationship | Address | Phone | + + + + + | Sigrid Lennon | ECON | [address] | | | | | [place] [address] | | + + + + + | Valentín Saleh | ECON | [address] | | | | | [place] [address] | | + + + + + | Roberto Carlos Lennon | LEVI | Unknown | | + + + + + Care Team Providers + +------+ + | Care Denier Control Operator Name | Role | Phone | [...] | | Rehabilitatio | of skin | [address] | [address] | | | | n | sensation | [address] | [address] | | | | | Neuropathy | Ave | [place] | | | | | Procedures | [place] | [address] Phone: | | | | | [place] | [place] | [phone] | | | | | &/SENS 1-2 | [address] | Fax: | | | | | NRV CNDJ | Phone: | [phone] | | | | | PRECONF | [phone] | | | | | | ELTRODE LIMB | Fax: | | | | | | [place] | [phone] | | | | | | &/SENS 7-8 | | | | | | | NRV CNDJ | | | | | | | PRECONF | | | | | | | ELTRODE LIMB | | | | | | | MT NEEDLE | | | | | | | EMG EA | | | | | | | EXTREMITY | | | | | | | W/PARASPINL | | | | | | | AREA LIMITED | | | | | | | MT NEEDLE | | | | | | [...] | visit | PHYSIATRY [address] | MD Chito WRIGHT | due to underlying | | | | [address] | [address] | condition with | | | | [address] | [place] [address] | hyperglycemia (HCC) | | | | [address] | [phone] | (Primary Dx); | | | | [phone] | | Diabetic | | | | [...] mellitus | | | | | | ([facility]) | | + +--------+ + + + documented in this encounter Results EMG Study (11/26/2015 12:13 PM PDT) + + + | Narrative | Performed At | + + + | Maxime Herbert MD 11/26/2015 12:13 [facility] | | | Physician [facility] [place] | | | Medical [address] [address] Ph: | | | Test Date: 11/24/2015 | | | Patient Name: Alyson Lennon : 1930 Physician: Maxime | | | MD Keon MR #: [id number] Sex: Female Referring Physician: | | | [...] electrodiagnostic evidence of a | | | kktq-wf-fthgejvt polyneuropathy with predominantly axonal features. | | [...] | | | Maxime Herbert MD Diplomate, [place] Board of Physical Medicine | | | [...]
--- OUTSIDE RECORDS SUMMARY | ~2019-07-24 | XMS | Encounter Summary ---
Demographics + + + | Address | [address] | | | [place] [address] | + + + | Home Phone [...] | [facility] | | | and [place] | + + + | Organization | [facility] [...] | | | | | [place] [address] | | + + + + + | Valentín Saleh | ECON | [phone] | | | | | [place] [address] | | + + + + + | Roberto Carlos Lennon | LEVI | [place] | | + + + + + Care Team Providers + +------+ + | Care Felt Carbonizer Name | Role | Phone | + +------+ + PCP | Unavailable | + +------+ + Encounter Details +--------+ + + + + | Date | Type | Department | Care Team | Description | +--------+ + + + + | 01/25/ | Hospital | [facility] | Francois Pascal, | | | 2007 | Encounter | MED CTR LABORATORY | [address] | | | | | [address] [place] | [address], | | | | | [place] | [place] [address] | | | | | [address] | [phone] | | | | | [phone] | | | +--------+ + + + [...]
--- OUTSIDE RECORDS SUMMARY | ~2019-07-24 | XMS | Encounter Summary ---
Demographics + + + | Address | [address] | | | [place] [address] | + + + | Home Phone [...] + | Author | [facility] | | | and [place] | + + + | Organization | [facility] | | [...] | | | | | [place] [address] | | + + + + + | Valentín Saleh | ECON | [address] | | | | | [place] [address] | | + + + + + | Roberto Carlos Lennon | LEVI | [place] | | + + + + + Care Team Providers + +------+ + | Care Cook Helper Name | Role | Phone | + +------+ + PCP | Unavailable | + +------+ + Encounter Details +--------+ + + + + | Date | Type | Department | Care Team | Description | +--------+ + + + + | 10/30/ | Hospital | [facility] | | | | 2003 | Encounter | MED CTR XRAY [address] | | | | | | [place] | | | | | | [place] [address] | | | | | | [phone] | | | +--------+ + + + [...]
--- OUTSIDE RECORDS SUMMARY | ~2019-07-24 | XMS | Encounter Summary ---
Demographics + + + | Address | [address] | | | [place] [address] | + + + | Home Phone [...] | Author | [facility] | | | and [place] | + + + | Organization | [facility] | | [...] | | | | | [place] [address] | | + + + + + | Valentín Saleh | ECON | [address] | | | | | [place] [address] | | + + + + + | Roberto Carlos Lennon | LEVI | Unknown | | + + + + + Care Team Providers + +------+ + | Care Economic Development Manager Name | Role | Phone | [...] + | 04/14/ | Office | [facility] | Francois Pascal, | Primary | | 2016 | Visit | MEDICINE [address] | [address] | osteoarthritis of | | | | [address] [place] | [address] [place], | left ankle (Primary | | | | [place] [address] | [place] [address] | Dx); Left ankle | | | | [phone] | [phone] | pain; CHRONIC KIDNEY | | | [...] VSD Father 50 Pneumonia Family Hx of Fox's chorea Sister and 2 brothers: CAD, Fox's Disease to Sigrid - with 2 Healthy Children No kidney disease in family. Social History: Reviewed history from 08/11/2011 and no changes required: Born in [facility] for 46 years. and Remarried [...] [address] | [place] | [phone] | | [facility] | | [address] | | | - LABORATORY | | [...] | | GLOMERULAR FILTRATION | mL/min/1.73m2 | [facility] | | | GHANAIAN | RATE,ESTIMATED | | MEDICAL | | | | mL/min/1.29w9Huev than | | CENTER - | | [...] | | bulin Ratio | | | [facility] | [...] + | [facility] | [address] | [place] | [phone] | | [facility] | | [address] | | | - LABORATORY | | [...] ST. | [address] | [place] | [phone] | | [facility] | | [address] | | | - LABORATORY | | [...]
--- OUTSIDE RECORDS SUMMARY | ~2019-07-24 | XMS | Encounter Summary ---
Demographics + + + | Address | [address] | | | [place] [address] | + + + | Home Phone [...] Author | [facility] | | | and [place] | + + + | Organization | [facility] [...] | | | | | [place] [address] | | + + + + + | Valentín Saleh | ECON | [phone] | | | | | [place] [address] | | + + + + + | Roberto Carlos Lennon | LEVI | Unknown | | + + + + + Care Team Providers + +------+ + | Care Technical Support Representative Name | Role | Phone | [...] + + | 02/16/ | Telephone | [facility] | Francois Pascal, | Appointment | | 2015 | | MEDICINE [facility] [address] | [address] | | | | | [place] | [address], | | | | | [place] [address] | [place] [id number] | | | | | [phone] | [phone] | | | | | | | [...]
--- OUTSIDE RECORDS SUMMARY | ~2019-07-24 | XMS | Encounter Summary ---
Demographics + + + | Address | [address] | | | [place] [address] | + + + | Home Phone [...] | Author | [facility] | | | and [place] | + + + | Organization | [facility] | [...] | | | | | [place] [address] | | + + + + + | Valentín Slaeh | ECON | [phone] | | | | | [place] [address] | | + + + + + | Roberto Carlos Lennon | LEVI | [place] | | + + + + + Care Team Providers + +------+ + | Care Butcher Helper Name | Role | Phone | + +------+ + PCP | Unavailable | + +------+ + Encounter Details +--------+ + + + + | Date | Type | Department | Care Team | Description | +--------+ + + + + | 11/02/ | Hospital | [facility] | | | | 2005 | Encounter | MED CTR XRAY [address] | | | | | | [place] | | | | | | [place] [address] | | | | | | [phone] | | | +--------+ + + + [...]
--- OUTSIDE RECORDS SUMMARY | ~2019-07-24 | XMS | Encounter Summary ---
Demographics + + + | Address | [address] | | | [place] [address] | + + + | Home Phone [...] Author | [facility] | | | and [place] | + + + | Organization | [facility] | [...] | | | | | [place] [address] | | + + + + + | Valentín Saleh | ECON | [phone] | | | | | [place] [address] | | + + + + + | Roberto Carlos Lennon | LEVI | Unknown | | + + + + + Care Team Providers + +------+ + | Care Hygiene Teacher Name | Role | Phone | + +------+ + | Francois Pascal MD | PCP | | + +------+ + Encounter Details +--------+ + + + + | Date | Type | Department | Care Team | Description | +--------+ + + + + | 11/23/ | Abstract | [facility] [place] | [place], | | | 2012 | | NEPHROLOGY [address] | [address] | | | | | [address] | [address] | | | | | [place], [place] | [address] [place] | | | | | [address] | [address] | | | | | [phone] | | | +--------+ + + + [...]
--- OUTSIDE RECORDS SUMMARY | ~2019-07-24 | XMS | Encounter Summary ---
Demographics + + + | Address | [address] | | | [place] [address] | + + + | Home Phone [...] Author | [facility] | | | and [place] | + + + | Organization | [facility] | | | [...] | | | | | [place] [address] | | + + + + + | Valentín Saleh | ECON | [phone] | | | | | [place] [address] | | + + + + + | Roberto Carlos Lennon | LEVI | Unknown | | + + + + + Care Team Providers + +------+ + | Care Certified Registered Locksmith Name | Role | Phone | + [...] + + | 11/27/ | Telephone | [facility] | Francois Pascal, | Appointment | | 2014 | | MEDICINE [facility] [address] | [address] | | | | | [place] | [address], | | | | | [place] [address] | [place] [address] | | | | | [phone] | [phone] | | | | | | | [...]
--- OUTSIDE RECORDS SUMMARY | ~2019-07-24 | XMS | Encounter Summary ---
Demographics + + + | Address | [address] | | | [place] [address] | + + + | Home Phone [...] + | Author | [facility] | | | and Clarkeana | + + + | Organization | [facility] | | | [...] | | | | | [place] [address] | | + + + + + | Valentín Saleh | ECON | [address] | | | | | [place] [address] | | + + + + + | Roberto Carlos Lennon | LEVI | Unknown | | + + + + + Care Team Providers + +------+ + | Care Maint Mechanic Name | Role | Phone | [...] Description | +--------+--------+ + + + | 11/25/ | Refill | [facility] | Misael Haynes, | Medication Refill | | 2014 | | MEDICINE [facility] | MD [address] | | | | | [facility] | [place] | | | | | [place] [address] | [address] | | | | | [phone] | | | +--------+--------+ + + + [...]
--- OUTSIDE RECORDS SUMMARY | ~2019-07-24 | XMS | Encounter Summary ---
Demographics + + + | Address | [address] | | | [place] [address] | + + + | Home Phone [...] Author | [facility] | | | and Clarkeana | + + + | Organization | [facility] | [...] | | | | | [place] [address] | | + + + + + | Valentín Saleh | ECON | [phone] | | | | | [place] [address] | | + + + + + | Roberto Carlos Lennon | LEVI | Unknown | | + + + + + Care Team Providers + +------+ + | Care Pc Analyst Name | Role | Phone | + +------+ + | Francois Pascal MD | PCP | | + +------+ + Encounter Details +--------+ + + + + | Date | Type | Department | Care Team | Description | +--------+ + + + + | 05/23/ | [facility] | [facility] | Francois Pascal, | | | 2011 | Encounter | MED CTR XRAY [address] | [address] | | | | | [place] | [address] [place], | | | | | [place] [address] | [place] [address] | | | | | [phone] | [phone] | | | | | | | [...] + | [facility] | [address] | [place] | [phone] | | [facility] | | [address] | | | - LABORATORY | | | | + + + + + | [facility] | [address] | [place] | | | [facility] | | [address], [facility] | | | - LABORATORY [...] performed on the Miguelito | uIU/mL | [facility] | | | | [facility] | [...] + | [facility] | [address] | [place] | [phone] | | [facility] | | [address] | | | - LABORATORY | | | | + + + + + | [facility] | [address] | [place], [place] | | | [facility] | | [address] [place] [address] | | | - LABORATORY | | [...] + | [facility] | [address] | [place] | [phone] | | [facility] | | [address] | | | - LABORATORY | | | | + + + + + | [facility] | [address] | [place], [place] | | | [facility] | | [address] | | | - LABORATORY | | | | + + + + + CBC with Differential (05/24/2011 4:10 PM PDT) + + + + + + | Component | Value | Ref Range | Performed | Pathologist | | | | | At | Signature | + + + + + + | WBC | 9.4 | 4.0 - 11.0 K/uL [...] + | [facility] | [address] | [place], [place] | [phone] | | [facility] | | [address] | | | - LABORATORY | | | | + + + + + | [facility] | [address] | [place], [place] | | | [facility] | | [address] | | | - LABORATORY | | | | + + + + + XR Chest PA and Lateral (05/24/2011 3:33 PM PDT) + + | Specimen | + + | | + + + + + | Narrative | Performed At | + + + | [facility] Diagnostic Imaging Department | [facility] | | [address] [facility] | [facility] | | TWO VIEW CHEST 05/24/2011 | DIAG IMG | | CLINICAL HISTORY: VIRAL URI. [...] Transcribed Date/Time: 05/24/2011 18:13 | | | Electric Serviceman: <Electronically Signed by Jose Velázquez, | | | > 05/25/11 7677 | | + + + + + | Procedure Note | + + | Al, Rad Conversion - 04/13/2013 4:57 PM [facility] | | Diagnostic Imaging Department [address] [place] [address] | | TWO VIEW CHEST 05/24/2011 CLINICAL [...] 17:51 | |Transcribed Date/Time: 05/24/2011 18:13 | |Electric Serviceman: | |<Electronically Signed by Jose Velázquez MD> 05/25/11 1044 | + + + +---------+ + + | Performing | Address | City/State/Zipcode | Phone Number | | Organization | | | | + +---------+ + + | [place] | | | | | [facility] | | | | + +---------+ + + documented in this encounter Visit Diagnoses Not on filedocumented in this encounter"
--- OUTSIDE RECORDS SUMMARY | ~2019-07-24 | XMS | Encounter Summary ---
Demographics + + + | Address | [address] | | | [place] [address] | + + + | Home Phone [...] Author | [facility] | | | and Clarkeana | + + + | Organization | [facility] [...] | | | | | [place] [address] | | + + + + + | Valentín Saleh | ECON | [phone] | | | | | [place] [address] | | + + + + + | Roberto Carlos Lennon | LEVI | Unknown | | + + + + + Care Team Providers + +------+ + | Care Housemaid Name | Role | Phone | + [...] | [address] | [address], [place] | | | | | [place], [place] | [address] [place] | | | | | [address] | [address] | | | | | [phone] | | | +--------+ + + + [...]
--- OUTSIDE RECORDS SUMMARY | ~2019-07-24 | XMS | Encounter Summary ---
Demographics + + + | Address | [address] | | | [place] [address] | + + + | Home Phone [...] | [facility] | | | and Clarkeana | + + + | Organization | [facility] [...] [address] | | | | | [place] [address] | | + + + + + | Valentín Saleh | ECON | [address] | | | | | [place] [address] | | + + + + + | Roberto Carlos Lennon | LEVI | Unknown | | + + + + + Care Team Providers + +------+ + | Care Golf Ball Cover Treater Name | Role | Phone | + [...] | disease, | [address] | SERVER 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 [address] | | | | | stage 3 | [place] | [address], | | | | | (moderate) | [place] | [address] | | | | | (HCC) | [address] | [place], | | | | | Hypertension | Phone: | [place] [address] | | | | | , renal | [phone] | Phone: | | | | | disease | Fax: | [phone] | | | | | Procedures | [phone] | Fax: | | | | | [place] OFFICE | | [phone] | | | | | OUTPATIENT | | | | | | | VISIT 25 | | | | | | | MINUTES | | | +--------+--------+ + + + + Encounter Details +--------+---------+ + + + | Date | Type | Department | Care Team | Description | +--------+---------+ + + + | 10/04/ | Office | [facility] [place] | [place], | CHRONIC KIDNEY | | 2017 | Visit | NEPHROLOGY [address] | [address] | DISEASE STAGE III | | | | [address] | [address], [place] | (MODERATE) (Primary | | | | [place], [place] | [address] | Dx); Gout, | | | | [address] | [address] | unspecified cause, | | | | [phone] | | unspecified | | | | [...] (HCC); | | | | | | Hypertension, [...] 4.8 | 10/04/2016 11:00 AM | Renee Giang on | | | oz) | PDT | [...] left hip. Since then has been at [facility] for rehab. She is ambulating with a walker at care facility. She is not sure what her blood pressure has been recently. No lightheadedness or dizziness. 07/10/16-07/13/16- Hospitalized due to left hip fracture now at [facility]. ROS: Reports food at care facility is not great; reports not being able to walk since hip f racture/surgery; urinary incontinence. Denies fatigue, chest pain, dyspnea, orthopnea, edema , nausea, vomiting, dysuria, hematuria, urinary frequency. PMH: Patient Active Problem List Diagnosis Date Noted DM (diabetes mellitus) ([facility]) 12/27/2011 Priority: High Glossitis Priority: High Hyperlipidemia, [...] respiratory collapse. 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 Note Last Updated: 12/16/2015 Problem list jalousies installer utility Preventative health care 03/23/2012 Note Last Updated: 09/27/2012 CRSC:03/23/2002normal except for redundancy and atonicity Next Due: Mammo:03/02/2012 benign Next:03/02/2013 Pap:03/24/2009 negative Next: CAROTID STENOSIS AMAUROSIS FUGAX DEMYELINATING DISEASE, CENTRAL NERVOUS SYSTEM FRACTURE, ANKLE, LEFT VITAMIN D DEFICIENCY Hypertension, renal disease DM type 2, uncontrolled, 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 0 Cuzetev-Bmihrfvwh-Brhzhti D (CALCIUM 500 PO) Take 1 capsule [...] [address] | [place] | [phone] | | [facility] | | [address] | | | - LABORATORY | | [...] | | 25 Hydroxy | | | [place] | | | [...] + | [address] | [address] | [place] | [phone] | | [facility] | | [address] | | | - LABORATORY | | | | + + + + + Parathyroid Hormone, Intact (10/04/2016 11:04 AM PDT) + +-------+ + + + | Component | Value | Ref Range | Performed | Pathologist | | | | | At | Signature | + +-------+ + + + | PTH Intact | 20 | 12 - 88 pg/mL | [facility] [...] [address] | [place] | [phone] | | [facility] | | [address] | | | - LABORATORY | | [...] mL/min/1.73m2 | [facility] | | | CYMRO | | | MEDICAL | | | [...] (L) | 3.2 - 5.0 g/dL | [facility] | | | | | | . [facility] | | | | | | MEDICAL | | | | | | CENTER - | | | | | | LABORATORY | | + +---------+ + + + | Phosphorus | 3.9 | 2.5 - 4.6 mg/dL | [facility] | | | | | | [facility] | | | | | | MEDICAL | | | | | | CENTER - | | | | | | LABORATORY | | + +---------+ + + + | BUN/Creatin | 25.6 | | [facility] | | | ine Ratio | | | . 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
--- OUTSIDE RECORDS SUMMARY | ~2019-07-24 | XMS | Encounter Summary ---
Demographics + + + | Address | [address] | | | [place] [address] | + + + | Home Phone [...] | Author | [facility] | | | and Clarkeana | + + + | Organization | [facility] [...] | | | | | [place] [address] | | + + + + + | Valentín Saleh | ECON | [phone] | | | | | [place] [address] | | + + + + + | Roberto Carlos Lennon | LEVI | Unknown | | + + + + + Care Team Providers + +------+ + | Care Cut Off Man Name | Role | Phone | [...] | 09/23/ | Refill | [facility] [place] [facility] | Francois Pascal, | Medication Refill | | 2012 | | MEDICINE [place] | [address] | | | | | [address] | [address] [place], | | | | | [place] | [place] [address] | | | | | [address] | [phone] | | | | | [phone] | | | +--------+--------+ + + + [...]
--- OUTSIDE RECORDS SUMMARY | ~2019-07-24 | XMS | Encounter Summary ---
Demographics + + + | Address | [address] | | | [place] [address] | + + + | Home Phone [...] Author | [facility] | | | and Clarkeana | + + + | Organization | [facility] | [...] | | | | | [place] [address] | | + + + + + | Valentín Saleh | ECON | [phone] | | | | | [place] [address] | | + + + + + | Roberto Carlos Lennon | LEVI | Unknown | | + + + + + Care Team Providers + +------+ + | Care Patient Manager Name | Role | Phone | [...] | essential | [address] | [place] [address], | | | | | hypertension | [address] | [employer] [address] | | | | | Chronic | [place] | [address], | | | | | kidney | [place], [place] | [address] | | | | | disease, | [address] | [place], | | | | | stage III | Phone: | [place] [address] | | | | | (moderate) | [phone] | Phone: | | | | | (HCC) Type | Fax: | [phone] | | | | | II or | [phone] | Fax: | | | | | unspecified | | [phone] | | | | | type | [...] | | | | | | | ([facility]) | | | | | | | Procedures | | | | | | | IN OFFICE | | | | | | [...] IV | | | | [address] | [address], [place] | ([facility]) (Primary Dx); | | | | [place] | [address] | Hypertension, renal | | | | [address] | [address] | disease, stage 1-4 | | | | [phone] | | or unspecified | | | [...] List Diagnosis Date Noted DM (diabetes mellitus) ([facility]) 12/27/2011 Priority: High Glossitis Priority: [...] 10/21/2014 Note Last Updated: 01/08/2015 Problem list fraud prevention analyst utility Cerebral contusion without loss of consciousness, unspecified laterality, sequela ([facility]) 10/21/2014 Transient alteration of awareness 10/17/2014 Head contusion, initial encounter 10/17/2014 Note Last Updated: 01/08/2015 Problem list fraud prevention analyst utility Left ankle pain 07/30/2014 Squamous carcinoma ([facility]) 12/05/2012 "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 -serum creatinine is above usual baseline; possibly related to fluid status with recent URI , also low normal BP -subnephrotic range proteinuria (on ACEI) -hydrate well, decrease lisinopril -continue chcf goal of hypertensive and glycemic control to [...]
--- OUTSIDE RECORDS SUMMARY | ~2019-07-24 | XMS | Encounter Summary ---
Demographics + + + | Address | [address] | | | [place] [address] | + + + | Home Phone [...] + | Author | [facility] | | | and Clarkeana | + + + | Organization | [facility] | | | [...] | | | | | [place] [address] | | + + + + + | Valentín Saleh | ECON | [phone] | | | | | [place] [address] | | + + + + + | Roberto Carlos Lennon | LEVI | Unknown | | + + + + + Care Team Providers + +------+ + | Care Knotter Name | Role | Phone | + [...] + | 08/25/ | Telephone | [facility] | Francois Pascal, | Results | | 2016 | | MEDICINE [address] | MD [address] | | | | | [facility] | [address] [place], | | | | | [place] [address] | [place] [address] | | | | | [phone] | [phone] | | | | | | | [...]
--- OUTSIDE RECORDS SUMMARY | ~2019-07-24 | XMS | Encounter Summary ---
Demographics + + + | Address | [address] | | | [place] [address] | + + + | Home Phone [...] | Author | [facility] | | | and Clarkeana | + + + | Organization | [facility] | [...] | | | | | [place] [address] | | + + + + + | Valentín Saleh | ECON | [address] | | | | | [place] [address] | | + + + + + | Roberto Carlos Lennon | LEVI | Unknown | | + + + + + Care Team Providers + +------+ + | Care Program Clinician Name | Role | Phone | + [...] + | 09/29/ | Telephone | [facility] | Francois Pascal, | DME | | 2019 | | MEDICINE CENTER | MD [address] | | | | | [address] | [address] [place], | | | | | [place] | [place] [address] | | | | | [address] | [phone] | | | | | [phone] | | | +--------+ + + + [...]
--- OUTSIDE RECORDS SUMMARY | ~2019-07-24 | XMS | Encounter Summary ---
Demographics + + + | Address | [address] | | | [place] [address] | + + + | Home Phone [...] | Author | [facility] | | | and Clarkeana | + + + | Organization | [facility] | [...] | | | | | [place] [address] | | + + + + + | Valentín Saleh | ECON | [address] | | | | | [place] [address] | | + + + + + | Roberto Carlos Lennon | LEVI | Unknown | | + + + + + Care Team Providers + +------+ + | Care International Marketing Intern Name | Role | Phone | [...] | | Gait | [place] | [address] Phone: | | | | | instability | [address] | [phone] | | | | | Procedures | Phone: | Fax: | | | | | [facility] | [phone] | [phone] | | | | | TREATMENT 45 | Fax: | | | | | | | [phone] | | +--------+--------+ + + + + Encounter Details +--------+---------+ + + + | Date | Type | Department | Care Team | Description | +--------+---------+ + + + | 03/10/ | Office | [facility] | Francois Pascal, | Posture imbalance | | 2016 | Visit | MED CTR THERAPY PT | MD [address] | (Primary Dx); | | | | OP [address] | [address] [place], | Impaired functional | | | | [place], [place] | [place] [address] | mobility, balance, | | | | [address] | [phone] | gait, and endurance; | | | | [phone] | | Left ankle pain | | | | | Cheyenne Caballero, | | | | | | FUR CUTTING MACHINE OPERATOR [address] | | | | | | [place], [place] | | | | | | [address] | | | | | | | [...] + documented as of this encounter Progress Cheyenne Jimenez PTA - 03/11/2015 7:39 AM PSTFormatting of this note might be different f rom the original. [facility] CTR THERAPY PT OP [address] [place] [address] Physical Therapy Daily Treatment Note Date: 03/10/2015 Patient Information Patient Name: Alyson Lennon Date of : 1930 Age: 84 y.o. Encounter Diagnoses Code Name Primary? R29.3 Posture imbalance Yes Z74.09 Impaired functional mobility, balance, gait, and endurance M25.572 Left ankle pain Date of Onset: 10/24/2014 Referring Provider: Francois Pascal MD Rehab Precautions Office Visit from 12/24/2014 in [facility] CTR THERAPY PT OP Rehab Precautions [...]
--- OUTSIDE RECORDS SUMMARY | ~2019-07-24 | XMS | Encounter Summary ---
Demographics + + + | Address | [address] | | | [place] [address] | + + + | Home Phone [...] | Author | [facility] | | | and Clarkeana | + + + | Organization | [facility] [...] | | | | | [place] [address] | | + + + + + | Valentín Saleh | ECON | [address] | | | | | [place] [address] | | + + + + + | Roberto Carlos Lennon | LEVI | Unknown | | + + + + + Care Team Providers + +------+ + | Care Estate Planning Director Name | Role | Phone | [...] + + | 02/23/ | Telephone | [facility] | Francois Pascal, | Appointment | | 2018 | | MEDICINE [place] | [address] | | | | | [address] | [address] [place], | | | | | [place], [place] | [place] [address] | | | | | [address] | [phone] | | | | | [phone] | | | +--------+ + + + [...]
--- OUTSIDE RECORDS SUMMARY | ~2019-07-24 | XMS | Encounter Summary ---
Demographics + + + | Address | [address] | | | [place] [address] | + + + | Home Phone [...] Author | [facility] | | | and Clarkeana | + + + | Organization | [facility] | | [...] | | | | | [place] [address] | | + + + + + | Valentín Saleh | ECON | [address] | | | | | [place] [address] | | + + + + + | Roberto Carlos Lennon | LEVI | Unknown | | + + + + + Care Team Providers + +------+ + | Care Group Marketing Vp Name | Role | Phone | + [...] | 05/25/ | Refill | [facility] [place] [facility] | Francois Pascal, | Medication Refill | | 2016 | | MEDICINE [facility] Sergio | [address] | | | | | [facility] | [address] [place], | | | | | [place] [address] | [place] [address] | | | | | [phone] | [phone] | | | | | | | [...]
--- OUTSIDE RECORDS SUMMARY | ~2019-07-24 | XMS | Encounter Summary ---
Demographics + + + | Address | [address] | | | [place] [address] | + + + | Home Phone [...] | [facility] | | | and Clarkeana | + + + | Organization | [facility] | | [...] | | | | | [place] [address] | | + + + + + | Valentín Saleh | ECON | [address] | | | | | [place] [address] | | + + + + + | Roberto Carlos Lennon | LEVI | Unknown | | + + + + + Care Team Providers + +------+ + | Care Chain Sales Consultant Name | Role | Phone [...] + + | 06/03/ | Office | [facility] | Leah, | Hypertension, renal | | 2016 | Visit | CARDIOLOGY [address] | [address] | disease, stage 1-4 | | | | [place], | [place], | or unspecified | | | | [place] [address] | [place] [address] | chronic kidney | | | | [phone] | [phone] | disease (Primary | | | | | | Dx); Coronary artery | | | | | | disease involving | | | | | | crow coronary | | | | | | artery of crow | | | | | | heart [...] renal complications Glossitis Coronary artery disease involving crow coronary artery of crow heart without angina pectoris Hyperlipidemia, mixed AMI [...] tablet by mouth nightly. 90 tablet 3 Nxxhpfq-Kyxokjslh-Pcbfhnf D (CALCIUM 500 PO) Take 1 capsule [...] Extensive history of coronary artery disease involving crow coronary artery of crow heart without angina pectoris: A. Status post [...] Patient is in a class I of [place] [employer] functional class. Physical exam shows [...] this chart may have been created with GetMaid voice recognition software. Occasi onal wrong-word or [...] + + | Coronary artery disease involving crow coronary artery of crow heart without | | angina pectoris | + + | Hyperlipidemia, mixed Mixed hyperlipidemia | + + documented in this encounter
--- OUTSIDE RECORDS SUMMARY | ~2019-07-24 | XMS | Encounter Summary ---
Demographics + + + | Address | [address] | | | [place] [address] | + + + | Home Phone [...] Author | [facility] | | | and Clarkeana | + + + | Organization | [facility] | [...] | | | | | [place] [address] | | + + + + + | Valentín Saleh | ECON | [address] | | | | | [place] [address] | | + + + + + | Roberto Carlos Lennon | LEVI | Unknown | | + + + + + Care Team Providers + +------+ + | Care Supervisor Travel Information Center Name | Role | Phone | + [...] + + | 01/20/ | Documentati | [facility] | Cheyenne Caballero, | No Show | | 2014 | on | MED CTR 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
--- OUTSIDE RECORDS SUMMARY | ~2019-07-24 | XMS | Encounter Summary ---
Demographics + + + | Address | [address] | | | [place] [address] | + + + | Home Phone [...] Author | [facility] | | | and [place]ana | + + + | Organization | [facility] | | [...] | | | | | [place] [address] | | + + + + + | Valentín Saleh | ECON | [phone] | | | | | [place] [address] | | + + + + + | Roberto Carlos Lennon | LEVI | Unknown | | + + + + + Care Team Providers + +------+ + | Care Card Dealer Name | Role | Phone | + [...] + | 10/25/ | Office | [facility] | Francois Pascal, | Atrial fibrillation, | | 2018 | Visit | MEDICINE [address] | [address] | unspecified type | | | | [facility] | [address] [place] [place], | ([facility]) (Primary Dx); | | | | [place] [address] | [place] [address] | Diabetes mellitus | | | | [phone] | [phone] | due to underlying | | | [...] Repair 1985 (L) Breast Biopsy 1974 ORIF Right hip 07/21 ORIF Left Ankle Unstable Trimalleolar Fracture Dislocation 03/24/2009 Family History: Mother 71 Myocardial Infarction, possible VSD Father 50 Pneumonia Family Hx of Kenton's chorea Sister and 2 brothers: CAD, Kenton's Disease to [place] - with 2 Healthy Children No kidney disease in family. Social History: Born in [facility] for [...] lesions Assessment: 1. Atrial fibrillation, unspecified type (HCC) 2. 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, with long-term current use of insulin (HCC) insulin glargine (LANTUS) 100 units/mL injection (vi [...] on filedocumented as of this encounter Results CBC with Differential (10/10/2018 3:20 PM PDT) + + + + + + | Component | Value | Ref Range | Performed | Pathologist | | | | | At | Signature | + + + + + + | WBC | 10.5 | 4.0 - 11.0 K/uL | [facility] | | [facility] | | | | [facility] | | + + + + + + | RBC | 3.77 | 3.70 - 5.20 | [facility] | | | | | M/uL | [facility] | | [...] + + | [facility] | [address] | [place] | [phone] | | [facility] | | [address] | | | [facility] | | [...] | | GLOMERULAR FILTRATION | mL/min/1.73m2 | [facility] | | | MALAYSIAN | RATE,ESTIMATED | | MEDICAL | | | | mL/min/1.78m7Dghf than | | PARK | | | [...] [address] | [place] | [phone] | | [facility] | | [address] | | | [facility] | | [...] MARISELA DIAZ. | [address] | [place], [place] | [phone] | | [facility] | | [address] | | | - LABORATORY | | [...]
--- OUTSIDE RECORDS SUMMARY | ~2019-07-24 | XMS | Encounter Summary ---
Demographics + + + | Address | [address] | | | [place] [address] | + + + | Home Phone [...] | [facility] | | | and [place] | + + + | Organization | [facility] | [...] | | | | | [place] [address] | | + + + + + | Valentín Saleh | ECON | [phone] | | | | | [place] [address] | | + + + + + | Roberto Carlos Lennon | LEVI | [place] | | + + + + + Care Team Providers + +------+ + | Care Ice Sculptor Name | Role | Phone | + +------+ + PCP | Unavailable | + +------+ + Encounter Details +--------+ + + + + | Date | Type | Department | Care Team | Description | +--------+ + + + + | 02/08/ | Hospital | [facility] | | | | 2006 | Encounter | MED CTR XRAY [address] | | | | | | [place] | | | | | | [place] [address] | | | | | | [phone] | | | +--------+ + + + [...]
--- OUTSIDE RECORDS SUMMARY | ~2019-07-24 | XMS | Encounter Summary ---
Demographics + + + | Address | [address] | | | [place] [address] | + + + | Home Phone [...] Author | [facility] | | | and [place] | + + + | Organization | [facility] [...] | | | | | [place] [address] | | + + + + + | Valentín Saleh | ECON | [phone] | | | | | [place] [address] | | + + + + + | Roberto Carlos Lennon | LEVI | Unknown | | + + + + + Care Team Providers + +------+ + | Care Customs Compliance Specialist Name | Role | Phone | [...] | 07/02/ | Refill | [facility] | Francois Pascal, | Medication Refill | | 2012 | | [facility] [place] | [address] | | | | | [address] | [address], | | | | | [place] | [place] [address] | | | | | [address] | [phone] | | | | | [phone] | | | +--------+--------+ + + + [...]
--- OUTSIDE RECORDS SUMMARY | ~2019-07-24 | XMS | Encounter Summary ---
Demographics + + + | Address | [address] | | | [place] [address] | + + + | Home Phone [...] | Author | [facility] | | | and [place] | + + + | Organization | [facility] | | | [...] | | | | | [place] [address] | | + + + + + | Valentín Saleh | ECON | [phone] | | | | | [place] [address] | | + + + + + | Roberto Carlos Lennon | LEVI | Unknown | | + + + + + Care Team Providers + +------+ + | Care Toy Stuffer Name | Role | Phone | + [...] | instability | [address] | [place] | | | | [address] | [address] | [place], | | | | | (ICD-10-CM) | [place] | [place] [address] | | | | | - [address] | [place] | Phone: | | | | | (ICD-9-CM) - | [address] | [phone] | | | | | Gait | Phone: | Fax: | | | | | instability | [phone] | [phone] | | | | | Procedures | Fax: | | | | | | pt eval | [phone] | | +--------+ + + + + + Encounter Details +--------+---------+ + + + | Date | Type | Department | Care Team | Description | +--------+---------+ + + + | 01/15/ | Office | [facility] | Francois Pascal, | Impaired functional | | 2015 | Visit | MED CTR THERAPY PT | MD [address] | mobility, balance, | | | | OP [address] | [address] [place], | gait, and endurance | | | | [place] | [place] [address] | (Primary Dx); | | | | [address] | [phone] | Posture imbalance; | | | | [phone] | | Left ankle pain | | | | | Cheyenne Caballero, | | | | | | BUSINESS TEST ANALYST [address] | | | | | | [place] | | | | | | [address] | | | | | | | [...] encounter Progress Notes Cheyenne Caballero PTA - 01/15/2015 11:39 AM PSTFormatting of this note might be different f rom the original. [facility] CTR THERAPY PT OP [address] [place] [address] Physical Therapy Daily Treatment Note Date: 01/15/2015 Patient Information Patient Name: Alyson Lennon Date of : 1930 Age: 84 y.o. Encounter Diagnoses Code Name Primary? Z74.09 Impaired functional mobility, balance, gait, and endurance Yes R29.3 Posture imbalance M25.572 Left ankle pain Date of Onset: 10/24/14 Referring Provider: Francois Pascal MD Rehab Precautions Office Visit from 12/24/2014 in [facility] CTR THERAPY PT OP Rehab Precautions [...] ramp, emphasis on equal step length [facility]le [facility] Neuromuscular re-ed to improve balance for safe [...]
--- OUTSIDE RECORDS SUMMARY | ~2019-07-24 | XMS | Encounter Summary ---
Demographics + + + | Address | [address] | | | [place] [address] | + + + | Home Phone [...] | Author | [facility] | | | and [place] | + + + | Organization | [facility] [...] | | | | | [place] [address] | | + + + + + | Valentín Saleh | ECON | [phone] | | | | | [place] [address] | | + + + + + | Roberto Carlos Lennon | LEVI | Unknown | | + + + + + Care Team Providers + +------+ + | Care Track Coach Name | Role | Phone | [...] + + | 03/21/ | Office | [facility] | Stephenie Paul, | Coronary artery | | 2016 | Visit | CARDIOLOGY [address] | [address] [facility] | disease involving | | | | [place], | [place], | [place] coronary | | | | [place] [address] | [place] [address] | artery of [place] | | | | [phone] | [phone] | heart without angina | | | | | | pectoris (Primary | | | | | | Dx); Essential | | | | | | hypertension | +--------+---------+ + + + Social History [...] + | Blood Pressure | 100/54 | 03/21/2015 1:16 PM | left arm | | | | PST | | + + + + + | Pulse | 66 | 03/21/2015 1:16 PM | regular | | | | PST | | + + + + + | Temperature | - | - | | + + + + + | Respiratory Rate | 16 | 03/21/2015 1:16 PM | | | | | PST | | + + + + + | Oxygen Saturation | - | - | | + + + + + | Inhaled Oxygen | - | - | | | Concentration | | | | + + + + + | Weight | 69.2 kg (152 lb 9.6 | 03/21/2015 1:16 PM | | | | oz) | PST | | + + + + + | Height | 157.5 cm (5' 2") | 03/21/2015 1:16 PM | | | | | PST | | + + + + + | Body Mass Index | 27.91 | 03/21/2015 1:16 PM | | | | | PST | | + + + + + documented in this encounter Progress Notes Stephenie Paul MD - 03/21/2015 1:31 PM PSTFormatting of this note might be different f rom the original. PATIENT NAME: Alyson Lennon : 1930: AGE: 84 y.o. PRIMARY CARE: Francois Pascal MD OUTPATIENT FOLLOW UP VISIT Date of Service: 03/21/2015 HISTORY OF PRESENT ILLNESS: Alyson Lennon is a 84 y.o. female with an extensive history of CAD, history of hypertensi on, hyperlipidemia, and type 2 diabetes. She is being seen today for a treatment of her CAD. She was last seen on 03/21/2014 at which time she was doing well. Since that time, her phys ical activity has been slowing down because of the bad weather and the close down of the Gym in her area. Otherwise, she is feeling good and denies any specific cardiac complaints. Th ere is no chest pain or chest discomfort both at rest and on exertion. Patient denies breat hlessness. There is no palpitation dizziness or lightheadedness. There is mild leg swellin g. Patient can sleep on one pillow at night without difficulty breathing. MEDICAL, SURGICAL, AND PERSONAL HISTORY Past Medical, Surgical, Family, and Social History are reviewed in EPIC. 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 CHRONIC KIDNEY DISEASE STAGE III (MODERATE) ARTHRITIS, CHRONIC DM (diabetes mellitus) 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 20 mL 3 JANUVIA 100 MG tablet TAKE ONE TABLET BY MOUTH EVERY DAY 90 tablet 1 LANTUS 100 UNIT/ML injection (vial) INJECT 120 UNITS AT BEDTIME 50 mL 6 lisinopril (PRINIVIL,ZESTRIL) 40 MG tablet methotrexate 2.5 mg tablet TAKE 5 TABLETS BY MOUTH ONCE WEEKLY. 20 tablet 1 metoprolol succinate (TOPROL-XL) 200 mg ER tablet TAKE ONE TABLET BY MOUTH EVERY DAY 90 tablet 3 multivitamin (THERAGRAN) per tablet Take 1 by mouth daily niacin (NIASPAN) 500 mg CR tablet TAKE ONE TABLET BY MOUTH EVERY DAY 30 tablet 6 simvastatin (ZOCOR) 40 mg tablet TAKE ONE-HALF TABLET BY MOUTH EVERY DAY 45 tablet 3 No current facility-administered medications for this visit. ALLERGIES Allergies Allergen Reactions Codeine Sulfate Nausea And Vomiting Darvon Nausea Only Estrogens Patient can't remember Pneumococcal Vaccines Other (See Comments) Thinks it was a Prevnar, arm became red/sore/swollen ROS Review of Systems Constitutional: Positive for weight loss and malaise/fatigue. Negative for fever, chills an d diaphoresis. HENT: Positive for hearing loss and tinnitus. Negative for congestion, nosebleeds and sore throat. Eyes: Negative for blurred vision and double vision. Respiratory: Negative for cough, shortness of breath and wheezing. Cardiovascular: Positive for leg swelling (left ankle). Negative for chest pain, palpitatio ns, orthopnea, claudication and PND. Gastrointestinal: Positive for constipation. Negative for heartburn, nausea, vomiting, abdo kassie pain, diarrhea, blood in stool and melena. Genitourinary: Positive for frequency. Negative for dysuria, urgency, hematuria and flank p ain. Musculoskeletal: Positive for joint pain and neck pain. Negative for myalgias, back pain an d falls. Skin: Negative for itching and rash. Neurological: Negative for dizziness, tingling, tremors, seizures, loss of consciousness, w eakness and headaches. Endo/Heme/Allergies: Positive for environmental allergies. Negative for polydipsia. Bruises /bleeds easily. Psychiatric/Behavioral: Negative for memory loss. The patient is not nervous/anxious and do es not have insomnia. OBJECTIVE: PHYSICAL EXAM BP 100/54 mmHg | Pulse 66 | Resp 16 | Ht 1.575 m (5' 2") | Wt 69.219 kg (152 lb 9.6 oz) | B NM 27.90 kg/m2 Physical Exam Constitutional: She appears well-developed [...] is no tenderness. Musculoskeletal: She exhibits edema (bilateral trace leg pitting edema.). Neurological: She is alert. Gait normal. Skin: Skin is warm and dry. Psychiatric: She has a normal mood and affect. Her mood appears not anxious. She does not e xhibit a depressed mood. ECG: Sinus rhythm, first-degree AV block, left axis deviation, right bundle branch block. LAB RESULTS: LIPID Lab Results Component Value Date CHOL 139* 09/10/2014 TRIG 263* 09/10/2014 HDL 51 09/10/2014 LDL 35 09/10/2014 CHOLHDL 2.7 09/10/2014 CHEMISTRY Lab Results Component Value Date GLU 129* 01/09/2015 NA 136 01/09/2015 K 3.9 01/09/2015 CL 99 01/09/2015 CO2 29 01/09/2015 CALCIUM 9.4 01/09/2015 ALKPHOS 45 01/09/2015 AST 21 01/09/2015 ALT 17 01/09/2015 BILITOT 0.8 01/09/2015 CREA 1.37* 01/09/2015 BUN 29* 01/09/2015 EGFR 40* 02/26/2013 HEMATOLOGY Lab Results Component Value Date WBC 8.8 01/09/2015 HGB 13.4 01/09/2015 HCT 40.7 01/09/2015 PLT 182 01/09/2015 I reviewed records from Francois Cooper M.D. for office visit. ASSESSMENT: 1. Extensive history of coronary artery [...] ankle injury/pain. Her physical activity has been slowin g down because of the bad weather and the close down of the Gym in her area. There is no signs and symptoms of overt congestive heart failure. Patient is in a class I of [place] [employer] functional class. Physical exam shows trace trace edema to he r left foot and ankle from her old fractured ankle. She is on a combination of baby aspirin, lisinopril, metoprolol, simvastatin and amlodipin e. 2. Hyperlipidemia: A. She is on Simvastatin. 3. Hypertension: A. Today blood pressure is well controlled. 4. Stage III chronic kidney disease suspecting diabetic nephropathy A. This has been stable. 5. Diabetes. 6. Obesity 7. Inactivity PLAN: 1. I recommend a therapeutic lifestyle change including walking 15 minutes a day. 2. Today, patient is doing well from cardiac standpoint. I will continue with current medi jered regimen. 3. Follow-up in one year. Electronically signed by: Stephenie Paul MD [facility] 03/21/2015 Portions of this chart may have been created with [employer] voice recognition software. Occasi onal wrong-word or [...] | ECG 12 LEAD | Routin | 03/21/2015 | Coronary artery | Results for this | | | e | 1:21 PM | disease involving | procedure are in the | | | | PST | [place] coronary | results section. | | | | | artery of [place] | | | | | | heart without angina | | | | | | pectoris Essential | | | | | | hypertension | | + +--------+ + + + documented in this encounter Results ECG 12 lead (03/21/2015 1:21 PM PST) + + + + + + | Component | Value | Ref Range | Performed | Pathologist | | | | | At | Signature | + + + + + + | VENTRICULAR | 67 | BPM | [facility] | | | RATE EKG | | | | | + + + + + + | ATRIAL RATE | 67 | BPM | [facility] | | + + + + + + | P-R | 280 | ms | [facility] | | | INTERVAL | | | | | + + + + + + | QRS | 132 | ms | [facility] | | | DURATION | | | | | + + + + + + | Q-T | 420 | ms | [facility] | | | INTERVAL | | | | | + + + + + + | Q-T | 443 | ms | [facility] | | | INTERVAL | | | | | | (CORRECTED) | | | | | + + + + + + | P WAVE AXIS | 78 | degrees | [facility] | | + + + + + + | QRS AXIS | -37 | degrees | [facility] | | + + + + + + | T AXIS | 117 | degrees | [facility] | | + + + + + + | INTERPRETAT | Sinus rhythm with 1st | | [facility] | | | ION TEXT | degree AV blockLeft axis | | | | | | deviationRight bundle | | | | | | branch blockLeft | | | | | | ventricular hypertrophy | | | | | | with repolarization | | | | | | abnormalityPossible | | | | | | Lateral infarct , age | | | | | | undeterminedInferior | | | | | | infarct , age | | | | | | undeterminedAbnormal | | | | | | ECGNo previous ECGs | | | | | | availableConfirmed by | | | | | | GARCIA PAVON MD | | | | | | ([id number]) on 03/21/2015 | | | | | | 4:25:07 PM | | | | + + [...] + + | Coronary artery disease involving [place] coronary artery of [place] heart without | | angina pectoris - Primary | + + | Essential hypertension Unspecified essential hypertension | + + documented in this encounter
--- OUTSIDE RECORDS SUMMARY | ~2019-07-24 | XMS | Encounter Summary ---
Demographics + + + | Address | [address] | | | [place] [address] | + + + | Home Phone [...] | Author | [facility] | | | and [place] | + + + | Organization | [facility] [...] | | | | | [place] [address] | | + + + + + | Valentín Saleh | ECON | [phone] | | | | | [place] [address] | | + + + + + | Roberto Carlos Lennon | LEVI | Unknown | | + + + + + Care Team Providers + +------+ + | Care Frameman Name | Role | Phone | + [...] Refill | | 2015 | | [facility] [place] | [address] | | | | | [address] | [address], | | | | | [place] | [place] [address] | | | | | [address] | [phone] | | | | | [phone] | | | +--------+--------+ + + + [...]
--- OUTSIDE RECORDS SUMMARY | ~2019-07-24 | XMS | Encounter Summary ---
Demographics + + + | Address | [address] | | | [place] [address] | + + + | Home Phone [...] | Author | [facility] | | | and [place]ana | + + + | Organization | [facility] [...] | | | | | [place] [address] | | + + + + + | Valentín Saleh | ECON | [address] | | | | | [place] [address] | | + + + + + | Roberto Carlos Lennon | LEVI | Unknown | | + + + + + Care Team Providers + +------+ + | Care Veterans' Counselor Name | Role | Phone | [...] | | | | | ([facility]) | | | | | [...] Description | +--------+---------+ + + + | 07/10/ | Surgery | [facility] | Ru Barbosa | ESTEBAN TITUS | | 2017 | | MED CTR OR INTRA OP | MD [address] | FEMORAL TROCHANTERIC | | | | [address] | [facility] | NAIL | | | | [place] | [place] [address] | | | | | [address] | [phone] | | | | | [phone] | | | +--------+---------+ + + + [...] Eddy MD - 07/13/2016 12:12 PM PDT [facility] DISCHARGE SUMMARY Pt. Name/Age/: Alyson Lennon [...] 7. 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 Specialty: Correction Facility Contact information: [address] [place] [address] Barbosa for orthopedic follow-up [...] stomatitis approx imately 20 years ago at [facility] and was advised they thought this was [...] signed by: Josiah Eddy MD, 07/13/2016 12:13 [facility] Portions of this chart may have been created with [employer] voice recognition software. Occasi onal wrong-word or [...] | | 0 | | | | Aykhbht-Hqjagyasl-Wx | mouth Daily. | | | | [...] Davis MD - 07/12/2016 3:50 PM PDT [facility] HOSPITALIST PROGRESS NOTE Patient: Alyson Lennon : 1930: Age: 85 y.o. MedRec: [id number] PCP: Francois Pascal MD Admission date: 07/10/2016 [...] He Davis MD 81 mg at 07/12/16 09 atorvaSTATin (LIPITOR) tablet 40 mg 40 mg Oral Nightly He Davis MD 40 mg at 2028 colchicine tablet 0.6 mg 0.6 mg Oral Daily PRN He Davis MD dextrose 50% injection 12.5 g 12.5 g Intravenous PRN He Davis MD docusate sodium (COLACE) capsule 100 mg 100 mg Oral BID PRN He Davis MD 100 mg at 07/12/16 09 folic acid tablet 1 mg 1 mg Oral Daily He Davis MD 1 mg at 07/12/16 09 hydrALAZINE (APRESOLINE) injection 10 mg 10 mg [...] He Davis MD 10 mg at 07/12 09 senna (SENOKOT) tablet 8.6 mg 8.6 mg [...] New-onset A. Fib: -Rate is controlled, continue pvc monitor -Asymptomatic -Continue Xarelto for anticoagulation *Pending SNF placement DVT Prophylaxis Xarelto Code Status Full Code. Total time of approximately 25 minutes was spent with the patient and/or patient's family, and/or on the patient's floor/unit, of which more than 50% was spent counseling and/or coord ination the patient's care as outlined above. He Davis 07/12/2016 15:51 [facility] Brea Jay, RN - 07/12/2016 10:30 AM PDTLate entry: Leave original left hip drsg intact, do not change at this time .. Per Dr. BarbosaElectronically signed by Brea Gonzalez, RN at 7 1:40 PM Ru Royal MD - 07/12/2016 10:27 AM PDTOrtho: Awake and alert with mild pain dressing intact with small amount of blood tinge NVM intact Continue PT as tolerated Will need SNF placement 10: 28 AM Aliza Bateman RN - 07/11/2016 5:44 PM [id number] report from Ramakrishna , assumed care of this pt. Pt sitting up in chair with chair alarm inplace. Electronically signed by: Aliza Sanchez RN 07/11/2016 17:46 Shelia Acevedo MD - 07/11/2016 1:59 PM PDT [facility] HOSPITALIST PROGRESS NOTE Patient: Alyson Lennon : 1930: Age: 85 y.o. MedRec: [id number] PCP: Francois Pascal MD Admission date: 07/10/2016 [...] Nightly He Davis MD 40 mg at 2030 colchicine tablet 0.6 mg 0.6 mg Oral [...] 20 mg 20 mg Oral Daily He Dvais MD 20 mg at 07/11/16 0828 [START [...] mg 0.4 mg Intravenous Once PRN Francois Ring II, MD ondansetron (ZOFRAN) injection 4 [...] as outlined above. He Davis 07/11/2016 13:59 [facility] Ru Royal MD - 07/11/2016 11:29 AM PDTOrtho: PO day 1 Sitting up in a chair and states very little pain Dressing intact without drainage NVM intact Continue PT, toe touch wt bearing Will probably need SNF placement.Electronically signed by Ru Barbosa MD at 07/11 11:31 AM Monica Marie RRT - 07/10/2016 6:00 PM PDTPt really not [...] medication list or bottles [] MAR from [facility] facility: [] Doctor's office: [x] Pharmacy list names: [facility] [x] [place]ORTER (Prescription Monitoring Program) [x] [employer] insurance reported [...] performed and electronically signed by Jose Myers, Used Car Manager 017 13:09 Reviewed by: Michelle Cabrera PHARMD [...] + +--------+ + + + | ORIF NEENA TITUS | | 07/10/2016 | Left Hip Fracture [...] [address] | [place] | [phone] | | [facility] | | [address] | | | - LABORATORY | | [...] [address] | [place] | [phone] | | [facility] | | [address] | | | - LABORATORY | | [...] not | 47 (L)Comment: | >=60 | [facility] | | | | GLOMERULAR FILTRATION | mL/min/1.73m2 | [facility] | | | RUSSIAN | RATE,ESTIMATED | | MEDICAL | | | | mL/min/1.63w8Uszp than | | CENTER - | | [...] [address] | [place] | [phone] | | [facility] | | [address] | | | - LABORATORY | | [...] + | [facility] | [address] | [place] | [phone] | | [facility] | | [address] | | | - LABORATORY | | [...] [address] | [place] | [phone] | | [facility] | | [address] | | | - LABORATORY | | | | + + + + + POC Glucose (07/12/2016 11:58 AM PDT) + +-------+ + + + | Component | Value | Ref Range | Performed | Pathologist | | | | | At | Signature | + +-------+ + + + | Glucose, | 128 | 70 - 150 mg/dL | Y[facility] [...] [address] | [place] | [phone] | | [facility] | | [address] | | | - LABORATORY | | [...] | | | | ROSALBA VERDUGO MD ([id number]) | | | | | | on [...] | 1.25 | 0.60 - 1.30 | [facility] | | | | | mg/dL | [facility] | | | | | | MEDICAL | | | | | | CENTER - | | | | | | LABORATORY | | + + + + + + | eGFR if not | 41 (L)Comment: | >=60 | [facility] | | | | GLOMERULAR FILTRATION | mL/min/1.73m2 | [facility] | | | RUSSIAN | RATE,ESTIMATED | | MEDICAL | | | | mL/min/1.32o3Zhbz than | | CENTER - | | [...] | 8.5 | 8.3 - 10.5 | [facility] | | | | | mg/dL | [facility] | | | | | | MEDICAL | | | | | | CENTER - | | | | | | LABORATORY | | + + + + + + | Albumin | 2.9 (L) | 3.2 - 5.0 g/dL | [facility] | | | | | | [facility] [...] + | BUN/Creatin | 20.8 | | [facility] | | | ine Ratio [...] [address] | [place] | [phone] | | [facility] | | [address] | | | - LABORATORY | | [...] ST. | [address] | [place] | [phone] | | [facility] | | [address] | | | - LABORATORY | | [...] + | [facility] | [address] | [place] | [phone] | | [facility] | | [address] | | | - LABORATORY | | [...] + | [facility] | [address] | [place] | [phone] | | [facility] | | [address] | | | - LABORATORY | | [...] [address] | [place] | [phone] | | [facility] | | [address] | | | - LABORATORY | | [...] + | [facility] | [address] | [place] | [phone] | | [facility] | | [address] | | | - LABORATORY | | [...] [address] | [place] | [phone] | | [facility] | | [address] | | | - LABORATORY | | [...] + | [facility] | [address] | [place] | [phone] | | [facility] | | [address] | | | - LABORATORY | | [...] not | 37 (L)Comment: | >=60 | [facility] | | | | GLOMERULAR FILTRATION | mL/min/1.73m2 | [facility] | | | RUSSIAN | RATE,ESTIMATED | | MEDICAL | | | | mL/min/1.31z3Rsbi than | | CENTER - | | [...] [address] | [place] | [phone] | | [facility] | | [address] | | | - LABORATORY | | [...] [address] | [place] | [phone] | | [facility] | | [address] | | | - LABORATORY | | [...] [address] | [place] | [phone] | | [facility] | | [address] | | | - LABORATORY | | [...] 07/10/2016 6:38 PM | + + [place] Aubrey Matilde No Bonifacio (07/10/2016 2:29 PM PDT) + [...] - 1.030 | [facility] | | | [place], | | | [facility] | | [...] [address] | [place] | [phone] | | [facility] | | [address] | | | - LABORATORY | | [...] | | [facility] | | [address] | | | - BLOOD BANK | [...] [address] | [place] | [phone] | | [facility] | | [address] | | | - LABORATORY | | [...] [address] | [place] | [phone] | | [facility] | | [address] | | | - LABORATORY | | [...] | Time | | seconds | [facility] | | | | [...] [address] | [place] | [phone] | | [facility] | | [address] | | | - LABORATORY | | [...] | mL/min/1.73m2 | [facility] | | | RUSSIAN | RATE,ESTIMATED | | MEDICAL | | | | mL/min/1.39m8Jqoo than | | CENTER - | | [...] + | [facility] | [address] | [place], [place] | [phone] | | [facility] | | [address] | | | - LABORATORY | | [...] ST. | [address] | [place], [place] | [phone] | | [facility] | | [address] | | | - LABORATORY | | [...] | Al, Rad Results In - 07/10/2016 1:27 PM [...] | | | | ROSALBA VERDUGO MD ([id number]) | | | | | | on [...] | | + +--------+ +--------+------+ + | bupivacaine 0.25%-EPINEPHrine | Given | 07/11/19 | 15 mLs | | Surgical | | 1:200,000 (PF) injection PRN, | | 17 1:52 | | | Site | | Starting 07/10/16 at 1352, | | PM PDT | | | | | Intra-op | | | | | | + +--------+ +--------+------+ + +---+---+ | | | +---+---+ documented in this encounter
--- OUTSIDE RECORDS SUMMARY | ~2019-07-24 | XMS | Encounter Summary ---
Demographics + + + | Address | [address] | | | [place] [address] | + + + | Home Phone [...] + | Author | [facility] | | | and [place] | + + + | Organization | [facility] [...] | | | | | [place] [address] | | + + + + + | Valentín Saleh | ECON | [address] | | | | | [place] [address] | | + + + + + | Roberto Carlos Lennon | LEVI | Unknown | | + + + + + Care Team Providers + +------+ + | Care Streetcar Motorman Name | Role | Phone | + [...] | 10/03/ | Refill | [facility] | Francois Pascal, | Medication Refill | | 2012 | | MEDICINE [place] | [address] | | | | | [address] | [address], | | | | | [place] | [place] [address] | | | | | [address] | [phone] | | | | | [phone] | | | +--------+--------+ + + + [...]
--- OUTSIDE RECORDS SUMMARY | ~2019-07-24 | XMS | Encounter Summary ---
Demographics + + + | Address | [address] | | | [place] [address] | + + + | Home Phone [...] Author | [facility] | | | and [place]ana | + + + | Organization | [facility] | | | [...] | | | | | [place] [address] | | + + + + + | Valentín Saleh | ECON | [address] | | | | | [place] [address] | | + + + + + | Roberto Carlos Lennon | LEVI | Unknown | | + + + + + Care Team Providers + +------+ + | Care Senior Chemist Name | Role | Phone | + [...] + | 10/14/ | Telephone | [facility] | Francois Pascal, | Medication Refill | | 2015 | | MEDICINE [address] [place] [address] | [address] | | | | | [place] | [address], | | | | | [place] [address] | [place] [address] | | | | | [phone] | [phone] | | | | | | | [...] + + + + | WBC | 12.6 (H) | 4.0 - 11.0 K/uL | [facility] | | | | | [facility] | | | | | | MEDICAL | | | | | | CENTER - | | | | | | LABORATORY | | + + + + + + | RBC | 4.34 | 3.70 - 5.20 | [...] [address] | [place] | [phone] | | [facility] | | [address] | | | - LABORATORY | | [...] (H) | 7 - 18 mg/dL | [facility] | | | | | | [facility] | | | | | | MEDICAL | | | | | | CENTER - | | | | | | LABORATORY | | + + + + + + | Creatinine | 1.59 (H) | 0.60 - 1.30 | [facility] | | | | | mg/dL | [facility] | | | | | | MEDICAL | | | | | | CENTER - | | | | | | LABORATORY | | + + + + + + | eGFR if not | 31 (L)Comment: | >=60 | [facility] | | | | GLOMERULAR FILTRATION | mL/min/1.73m2 | [facility] | | | [place] | RATE,ESTIMATED | | MEDICAL | | | | mL/min/1.30g2Xsac than | | CENTER - | | [...] [address] | [place] | [phone] | | [facility] | | [address] | | | - LABORATORY | | [...] [address] | [place] | [phone] | | [facility] | | [address] | | | - LABORATORY | | [...] | 1.30 | 0.60 - 1.30 | [facility] | | | | | mg/dL | [facility] | | | | | | MEDICAL | | | | | | CENTER - | | | | | | LABORATORY | | + + + + + + | eGFR if not | 39 (L)Comment: | >=60 | [facility] | | | | GLOMERULAR FILTRATION | mL/min/1.73m2 | [facility] | | | [place] | RATE,ESTIMATED | | MEDICAL | | | | mL/min/1.19r5Hpza than | | CENTER - | | [...] ST. | [address] | [place] | [phone] | | [facility] | | [address] | | | - LABORATORY | | | | + + + + + documented in this encounter Visit Diagnoses + + | Diagnosis | + + | High risk medication use - Primary Encounter for long-term (current) use of other | | medications | + + documented in this encounter"
--- OUTSIDE RECORDS SUMMARY | ~2019-07-24 | XMS | Encounter Summary ---
Demographics + + + | Address | [address] | | | [place] [address] | + + + | Home Phone [...] Author | [facility] | | | and [place] | + + + | Organization | [facility] | [...] | | | | | [place] [address] | | + + + + + | Valentín Saleh | ECON | [address] | | | | | [place] [address] | | + + + + + | Roberto Carlos Lennon | LEVI | Unknown | | + + + + + Care Team Providers + +------+ + | Care Account Services Analyst Name | Role | Phone [...] + + | 07/13/ | Telephone | [facility] | Francois Pascal, | Other | | 2017 | | MEDICINE [address] | [address] | | | | | [place] | [address], | | | | | [place] [address] | [place] [address] | | | | | [phone] | [phone] | | | | | | | [...]
--- OUTSIDE RECORDS SUMMARY | ~2019-07-24 | XMS | Encounter Summary ---
Demographics + + + | Address | [address] | | | [place] [address] | + + + | Home Phone [...] | Author | [facility] | | | and [place] | + + + | Organization | [facility] | | [...] | | | | | [place] [address] | | + + + + + | Valentín Saleh | ECON | [phone] | | | | | [place] [address] | | + + + + + | Roberto Carlos Lennon | LEVI | Unknown | | + + + + + Care Team Providers + +------+ + | Care Drug Enforcement Agent Name | Role | Phone | + +------+ + | Francois Pascal MD | PCP | | + +------+ + Reason for Visit + + + | Reason | Comments | + + + | Appointment | cancel | + + + Encounter Details +--------+ + + + + | Date | Type | Department | Care Team | Description | +--------+ + + + + | 07/06/ | Telephone | [facility] | [place], | Appointment (cancel) | | 2012 | | NEPHROLOGY [address] | [address] | | | | | [address] [address] | [address], [place] | | | | | [place], [place] | [address] [place] | | | | | [address] | [address] | | | | | [phone] | | | +--------+ + + + [...]
--- OUTSIDE RECORDS SUMMARY | ~2019-07-24 | XMS | Encounter Summary ---
Demographics + + + | Address | [address] | | | [place] [address] | + + + | Home Phone [...] | Author | [facility] | | | and [place] | + + + | Organization | [facility] | | [...] | | | | | [place] [address] | | + + + + + | Valentín Saleh | ECON | [address] | | | | | [place] [address] | | + + + + + | Roberto Carlos Lennon | LEVI | Unknown | | + + + + + Care Team Providers + +------+ + | Care Carbide Die Maker Name | Role | Phone | + +------+ + | No, Physician | PCP | Unavailable | + +------+ + Encounter Details +--------+ + + + + | Date | Type | Department | Care Team | Description | +--------+ + + + + | 07/31/ | Lab | [facility] | Francois Pascal, | Contact with and | | 2018 | Requisition | MED CTR LABORATORY | [address] | (suspected) exposure | | | | [address] [place] | [address], | to potentially | | | | [place] | [place] [address] | hazardous body | | | | [address] | [phone] | fluids; Encounter | | | | [phone] | | for screening for | | | | | | other viral diseases | +--------+ + + + + Social [...] | | + +------+--------+ + + | Hepatitis Panel, | Lab | Routin | Contact with and | Ordered: 07/31/2018 | | Acute | | e | (suspected) exposure | | | | | | to potentially | | | | | | hazardous body | | | | | | fluids | | + +------+--------+ + + | Hepatitis A, B, C | Lab | Routin | Contact with and | Ordered: 07/31/2018 | | Panel, Reflex | | e | (suspected) exposure | | | | | | to potentially | | | | | | hazardous body | | | | | | fluids | | + +------+--------+ + + | Hepatitis Panel | Lab | Routin | Contact with and | Ordered: 07/31/2018 | | | | e | (suspected) exposure | | | | | | to potentially | | | | | | hazardous body | | | | | | fluids | | + +------+--------+ + + documented as of this encounter Visit Diagnoses + + | Diagnosis | + + | Contact with and (suspected) exposure to potentially hazardous body fluids Personal | | history of contact with and (suspected) exposure to potentially hazardous body fluids | + + | Encounter for screening for other viral diseases | + + documented in this encounter"
--- OUTSIDE RECORDS SUMMARY | ~2019-07-24 | XMS | Encounter Summary ---
Demographics + + + | Address | [address] | | | [place] [address] | + + + | Home Phone [...] | Author | [facility] | | | and [place] | + + + | Organization | [facility] | | | [...] | | | | | [place] [address] | | + + + + + | Valentín Saleh | ECON | [address] | | | | | [place] [address] | | + + + + + | Roberto Carlos Lennon | LEVI | [place] | | + + + + + Care Team Providers + +------+ + | Care Aquatic Director Name | Role | Phone | + +------+ + PCP | Unavailable | + +------+ + Encounter Details +--------+ + + + + | Date | Type | Department | Care Team | Description | +--------+ + + + + | 10/26/ | Hospital | [facility] | | | | 2001 | Encounter | MED CTR XRAY [address] | | | | | [address] [place] | | | | | | [place] [address] | | | | | | [phone] | | | +--------+ + + + [...]
--- OUTSIDE RECORDS SUMMARY | ~2019-07-24 | XMS | Encounter Summary ---
Demographics + + + | Address | [address] | | | [place] [address] | + + + | Home Phone [...] Author | [facility] | | | and [place] | + + + | Organization | [facility] | | | and [...] | | | | | [place] [address] | | + + + + + | Valentín Saleh | ECON | [address] | | | | | [place] [address] | | + + + + + | Roberto Carlos Lennon | LEVI | Unknown | | + + + + + Care Team Providers + +------+ + | Care Workplace Trainer And Assessor Name | Role | Phone | + [...] Refill | | 2019 | | MEDICINE [place] | [address] | | | | | [address] | [address], | | | | | [place] | [place] [address] | | | | | [address] | [phone] | | | | | [phone] | | | +--------+--------+ + + + [...] this encounter Plan of Treatment [facility] - hokedocumented as of this encounter Visit Diagnoses Not on filedocumented in this encounter"
--- OUTSIDE RECORDS SUMMARY | ~2019-07-24 | XMS | Encounter Summary ---
Demographics + + + | Address | [address] | | | [place] [address] | + + + | Home Phone [...] + | Author | [facility] | | | and [place] | + + + | Organization | [facility] [...] | | | | | [place] [address] | | + + + + + | Valentín Saleh | ECON | [address] | | | | | [place] [address] | | + + + + + | Roberto Carlos Lennon | LEVI | Unknown | | + + + + + Care Team Providers + +------+ + | Care Mobile Homes Repairer Name | Role | Phone | + +------+ + | Francois Pascal MD | PCP | | + +------+ + Encounter Details +--------+ + + + + | Date | Type | Department | Care Team | Description | +--------+ + + + + | 07/16/ | Hospital | [facility] | [place], | | | 2016 | Encounter | MED CTR LABORATORY | [address] | | | | | [address] [place] | [facility] | | | | | [place] | [address] [place] | | | | | [address] | [id number] | | | | | [phone] | | | +--------+ + + + [...] | | | | hyperglycemia ([facility]) | | [...] mellitus) ([facility]) | | [...]
--- OUTSIDE RECORDS SUMMARY | ~2019-07-24 | XMS | Encounter Summary ---
Demographics + + + | Address | [address] | | | [place] [address] | + + + | Home Phone [...] + | Author | [facility] | | | and [place] | + + + | Organization | [facility] | | | and [place] | + + + | Address | Unknown | + + + | Phone | Unavailable | + + + Support + + + + + | Name | Relationship | Address | Phone | + + + + + | Sigrid Lennon | ECON | [address] | | | | | [place] [address] | | + + + + + | Valent[place] Saleh | ECON | [address] | | | | | [place] [address] | | + + + + + | Roberto Carlos Lennon | LEVI | Unknown | | + + + + + Care Team Providers + +------+ + | Care Bus And Sys Integration Senior Manager Name | Role | Phone | + +------+ + | No, Physician | PCP | Unavailable | + +------+ + Encounter Details +--------+ + + + + | Date | Type | Department | Care Team | Description | +--------+ + + + + | 10/03/ | Lab | [facility] | [place], | Chronic kidney | | 2018 | Requisition | MED CTR LABORATORY | [address] | disease, stage III | | | | [address] [place] | [address], [place] | (moderate); 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 | [place] | [phone] | | [facility] | | [address] | | | - LABORATORY | | [...] 15 | 7 - 18 mg/dL | [facility] [...] mL/min/1.73m2 | [facility] | | | POLISH | | | MEDICAL | | | [...] ST. | [address] | [place], [place] | [phone] | | [facility] | | [address] | | | - LABORATORY | | [...] | | [place] | | | [facility] | | | Tube | | | [...] [address] | [place] | [phone] | | [facility] | | [address] | | | - LABORATORY | | [...] ST. | [address] | [place], [place] | [phone] | | [facility] | | [address] | | | - LABORATORY | | [...]
--- OUTSIDE RECORDS SUMMARY | ~2019-07-24 | XMS | Encounter Summary ---
Demographics + + + | Address | [address] | | | [place] [address] | + + + | Home Phone [...] Author | [facility] | | | and [place] | + + + | Organization | [facility] | [...] | | | | | [place] [address] | | + + + + + | Valentín Saleh | ECON | [id number] | | | | | [place] [address] | | + + + + + | Roberto Carlos Lennon | LEVI | Unknown | | + + + + + Care Team Providers + +------+ + | Care Platen Builder Up Name | Role | Phone | + +------+ + | Francois Pascal MD | PCP | | + +------+ + Encounter Details +--------+ + + + + | Date | Type | Department | Care Team | Description | +--------+ + + + + | 03/01/ | Hospital | [facility] | Francois Pascal, | DM (diabetes | | 2013 | Encounter | MED CTR LABORATORY | [address] | mellitus) ([facility]) | | | | [address] | [address], | | | | | [place] | [place] [address] | | | | | [address] | [phone] | | | | | [phone] | | | +--------+ + + + [...] + + | Performing | Address | City/State[facility] | Phone Number | | Organization | | | | + + + + + | [facility] | [address] | [place] | [phone] | | [facility] | | [address] | | | - LABORATORY | | | | + + + + + | [facility] | [address] | [place] | | | [facility] | | [address], [facility] | | | [...] A1c | DIABETIC PATIENT RANGES: | | [facility] | | | | 6.2-7.0% [...] + | [facility] | [address] | [place], [place] | [phone] | | [facility] | | [address] | | | - LABORATORY | | | | + + + + + | [facility] | [address] | [place], [place] | | | [facility] | | [address], [facility] | | | [...]
--- OUTSIDE RECORDS SUMMARY | ~2019-07-24 | XMS | Encounter Summary ---
Demographics + + + | Address | [address] | | | [place] [address] | + + + | Home Phone [...] Author | [facility] | | | and [place] | + + + | Organization | [facility] | | [...] | | | | | [place] [address] | | + + + + + | Valentín Saleh | ECON | [phone] | | | | | [place] [address] | | + + + + + | Roberto Carlos Lennon | LEVI | Unknown | | + + + + + Care Team Providers + +------+ + | Care Clother In Name | Role | Phone | + +------+ + | Francois Pascal MD | PCP | | + +------+ + Encounter Details +--------+ + + + + | Date | Type | Department | Care Team | Description | +--------+ + + + + | 06/02/ | [facility] | [facility] | Francois Capone, | | | 2016 | Encounter | MED CTR LABORATORY | SUHAS Martinez has | | | | | [address] | retired. | | | | | [place] | | | | | | [address] | | | | | | [phone] | | | +--------+ + + + [...]
--- OUTSIDE RECORDS SUMMARY | ~2019-07-24 | XMS | Encounter Summary ---
Demographics + + + | Address | [address] | | | [place] [address] | + + + | Home Phone [...] Author | [facility] | | | and [place] | + + + | Organization | [facility] [...] | | | | | [place] [address] | | + + + + + | Valentín Saleh | ECON | [phone] | | | | | [place] [address] | | + + + + + | Roberto Carlos Lennon | LEVI | Unknown | | + + + + + Care Team Providers + +------+ + | Care Apartment Community Manager Name | Role | Phone | [...] + + | 01/05/ | Office | [facility] | [place], | CHRONIC KIDNEY | | 2011 | Visit | NEPHROLOGY [address] | [address] | DISEASE STAGE III | | | | [address] | [address], [place] | (MODERATE) (Primary | | | | [place] | [address] | Dx); HTN CKD UNS | | | | [address] | [address] | W/CKD STAGE I THRU | | | | [phone] | | STAGE IV/UNS; | | | [...] by Janice Lucero at 01/21/2012 2:25 PM PSTKemar Herndon ARNP - 01/06/2012 10:52 AM PDT Nephrology [...] likely nephropathy. Not well controlled currently, though patie nt reports recent increase in insulin dose. [...] | 1.015 | | | | | Mineral, | | | | | | UA, [...]
--- OUTSIDE RECORDS SUMMARY | ~2019-07-24 | XMS | Encounter Summary ---
Demographics + + + | Address | [address] | | | [place] [address] | + + + | Home Phone [...] Author | [facility] | | | and [place] | + + + | Organization | [facility] | | | and [place] | + + + | Address | Unknown | + + + | Phone | Unavailable | + + + Support + + + + + | Name | Relationship | Address | Phone | + + + + + | Sigrid Lennon | ECON | [address] | | | | | [place] [address] | | + + + + + | Valentín Saleh | ECON | [phone] | | | | | [place] [address] | | + + + + + | Roberto Carlos Lennon | LEVI | [place] | | + + + + + Care Team Providers + +------+ + | Care Attorney General Name | Role | Phone | + +------+ + PCP | Unavailable | + +------+ + Encounter Details +--------+ + + + + | Date | Type | Department | Care Team | Description | +--------+ + + + + | 05/22/ | Hospital | [facility] | | | | 2004 | Encounter | MED CTR LABORATORY | | | | | | [address] | | | | | | [place] | | | | | | [address] | | | | | | [phone] | | | +--------+ + + + [...]
--- OUTSIDE RECORDS SUMMARY | ~2019-07-24 | XMS | Encounter Summary ---
Demographics + + + | Address | [address] | | | [place] [address] | + + + | Home Phone [...] + | Author | [facility] | | | and [place] | + + + | Organization | [facility] [...] | | | | | [place] [address] | | + + + + + | Valentín Saleh | ECON | [phone] | | | | | [place] [address] | | + + + + + | Roberto Carlos Lennon | LEVI | Unknown | | + + + + + Care Team Providers + +------+ + | Care Automotive Starter Repairer Name | Role | Phone | [...] + + | 09/27/ | Office | [facility] | Francois Pascal, | DM (diabetes | | 2015 | Visit | MEDICINE [address] [place] [address] | [address] | mellitus) (Primary | | | | [place] | [address], | Dx); CHRONIC KIDNEY | | | | [place] [address] | [place] [address] | DISEASE STAGE III | | | | [phone] | [phone] | (MODERATE) | | | | | [...] VSD Father 50 Pneumonia Family Hx of Providence's chorea Sister and 2 brothers: CAD, Providence's Disease to [place] - with 2 Healthy Children No kidney [...]
--- OUTSIDE RECORDS SUMMARY | ~2019-07-24 | XMS | Encounter Summary ---
Demographics + + + | Address | [address] | | | [place] [address] | + + + | Home Phone [...] Author | [facility] | | | and [place] | + + + | Organization | [facility] | [...] | | | | | [place] [address] | | + + + + + | Valentín Saleh | ECON | [phone] | | | | | [place] [address] | | + + + + + | Roberto Carlos Lennon | LEVI | Unknown | | + + + + + Care Team Providers + +------+ + | Care Alteration Inspector Name | Role | Phone | + +------+ + | Francois Pascal MD | PCP | | + +------+ + Reason for Visit + + + | Reason | Comments | + + + | Medication Orders | Novolog | + + + Encounter Details +--------+ + + + + | Date | Type | Department | Care Team | Description | +--------+ + + + + | 10/05/ | Telephone | [facility] | Francois Pascal, | Medication Orders | | 2016 | | MEDICINE [address] [place] [address] | [address] | (Novolog ) | | | | [facility] | [address], | | | | | [place] [address] | [place] [address] | | | | | [phone] | [phone] | | | | | | | [...]
--- OUTSIDE RECORDS SUMMARY | ~2019-07-24 | XMS | Encounter Summary ---
Demographics + + + | Address | [address] | | | [place] [address] | + + + | Home Phone [...] | [facility] | | | and [place] | + + + | Organization | [facility] [...] | | | | | [place] [address] | | + + + + + | Valentín Saleh | ECON | [address] | | | | | [place] [address] | | + + + + + | Roberto Carlos Lennon | LEVI | Unknown | | + + + + + Care Team Providers + +------+ + | Care Metal Drawer Name | Role | Phone | [...] + + | 11/04/ | Refill | [facility] [place] | [place], | Medication Refill | | 2015 | | NEPHROLOGY [address] | [address] | | | | | [address] | [address], [place] | | | | | [place], [place] | [address] | | | | | [address] | [address] | | | | | [phone] | | | +--------+--------+ + + + [...]
--- OUTSIDE RECORDS SUMMARY | ~2019-07-24 | XMS | Encounter Summary ---
Demographics + + + | Address | [address] | | | [place] [address] | + + + | Home Phone [...] Author | [facility] | | | and [place] | + + + | Organization | [facility] [...] | | | | | [place] [address] | | + + + + + | Valentín Saleh | ECON | [phone] | | | | | [place] [address] | | + + + + + | Roberto Carlos Lennon | LEVI | Unknown | | + + + + + Care Team Providers + +------+ + | Care Process Maintenance Technician Name | Role | Phone | [...] + + | 09/10/ | Office | [facility] | Francois Pascal, | Essential | | 2015 | Visit | MEDICINE [address] | [address] | hypertension | | | | [facility] | [address], | (Primary Dx); DM | | | | [place] [address] | [place] [address] | (diabetes mellitus); | | | | [phone] | [phone] | CHRONIC KIDNEY | | | | [...] Airam's chorea Sister and 2 brothers: CAD, [place]'s Disease to [place] - with 2 Healthy Children No kidney disease in family. Social History: Reviewed history from 08/11/2011 and no changes required: Born in [facility] for [...] [address] | [place] | [phone] | | [facility] | | [address] | | | - LABORATORY | | [...] | mL/min/1.73m2 | GATO | | | DUTCH | RATE,ESTIMATED | | MEDICAL | | | | mL/min/1.68z6Qjbx than | | CENTER - | | [...] [address] | [place] | [phone] | | [facility] | | [address] | | | - LABORATORY | | | | + + + + + CBC with Differential (01/09/2015 9:27 AM PST) + + + + + + | Component | Value | Ref Range | Performed | Pathologist | | | | | At | Signature | + + + + + + | WBC | 8.8 | 4.0 - 11.0 K/uL | YANE | | | | | [...] [address] | [place] | [phone] | | [facility] | | [address] | | | - LABORATORY | | [...]
--- OUTSIDE RECORDS SUMMARY | ~2019-07-24 | XMS | Encounter Summary ---
Demographics + + + | Address | [address] | | | [place] [address] | + + + | Home Phone [...] Author | [facility] | | | and [place] | + + + | Organization | [facility] [...] | | | | | [place] [address] | | + + + + + | Valentín Saleh | ECON | [address] | | | | | [place] [address] | | + + + + + | Roberto Carlos Lennon | LEVI | Unknown | | + + + + + Care Team Providers + +------+ + | Care Adult Literacy Instructor Name | Role | Phone | [...] | | MD Jennifer | [address] | | | | | Hypertension | [address] | [place], | | | | | , renal | [address] | [place] | | | | | disease, | [place], | [address] | | | | | stage 1-4 or | [place] [address] | Phone: | | | | | unspecified | Phone: | [phone] | | | | | chronic | [phone] | Fax: | | | | | kidney | Fax: | [phone] | | | | | disease | [phone] | | | | | | Essential [...] | | | | | | Complete [place] | | | | | | | ECHO HEART | | | | | | | XTHOJUNO,CO | | | | | | | MPLETE W | | | | | | | DOPPLER MS | | | | | | | [...] | Radiology | Diagnoses | [place], | Ws Echo | | | | | | MD Jennifer | [address] | | | | | Hypertension | [address] | [place], | | | | | , renal | [address] | [place] | | | | | disease, | [place], | [address] | | | | | stage 1-4 or | [place] [address] | Phone: | | | | | unspecified | Phone: | [phone] | | | | | chronic | [phone] | Fax: | | | | | kidney | Fax: | [phone] | | | | | disease | [phone] | | | | | | Essential [...] | | | | | | Complete [place] | | | | | | | ECHO HEART | | | | | | | XTHORACIC,CO | | | | | | | MPLETE W | | | | | | | DOPPLER MS | | | | | | | [...] | +--------+ + + + + | 03/11/ | Hospital | [facility] | Jennifer aPul, | Hypertension, renal | | 2017 | Encounter | MED CTR ECHO [address] | MD Bob Sheehan | disease, stage 1-4 | | | | [address] [place] | [address], | or unspecified | | | | [place] [address] | [place] [address] | chronic kidney | | | | [phone] | [phone] | disease; Essential | | | | | | hypertension with | | | | | Yue Velásquez | goal blood pressure | | | | | A, Technologist | less than 130/80; | | | | | [place], [place] | CHRONIC KIDNEY | | | | | [address] | DISEASE STAGE III | | | [...] | | 0 | | | | Ecezjqz-Jexxgircf-Kv | mouth Daily. | | | | [...] + | ECHO COMPLETE | Routin | 03/11/2016 | Hypertension, | Results for this | | | e | 10:50 AM | renal disease, stage | procedure are in the | | | | PST | 1-4 or unspecified | results section. | | | | | chronic kidney | | | | | | disease Essential | | | | | | hypertension with | | | | | | goal blood pressure | | | | | | less than 130/80 | | | | | | CHRONIC KIDNEY | | | | | | DISEASE STAGE III | | | | | | (MODERATE) | | + +--------+ + + + documented in this encounter Results ECHO Complete (03/11/2016 10:50 [...] Echocardiography Report (TTE) Demographics Patient Name RADHA | Raheem HOSKINS | | [place] Room Number BRIDGET Patient Number | [facility]i [facility] | | [id number] Date of Study 03/11/2016 Visit Number | - IMAGING | | [id number] Referring Physician | | | BEVERLY RODRIGUEZ Number Date of 1930 | | | Urban And Regional Planner [place]Z, | | | [place] Age | | | 85 year(s) Interpreting BEVERLY | | | JENNIFER Case Investigator | | | JENNIFER PAUL MD Gender Female | | | Nurse [...] | | | EF | | | Rjhhlfnyb68% Left Ventricle Diastolic Dimension: 4.48 cm | [...] Volume: 55.29 ml | | | EF Qzxzytrav95% | | | | | | Left [...] + | Taras Melendez Results In - 03/11/2016 12:20 PM [facility] Transthoracic Echocardiography Report | | (TTE) Demographics Patient Name RADHA MEADOWS Room Number BRIDGET Patient | | Number [id number] Date of Study 03/11/2016 Visit Number [id number] | | Referring Physician BEVERLY RODRIGUEZ Number Date of | | 1930 Urban [employer] Planner YUE VELÁSQUEZ, | | [place] Age 85 year(s) Interpreting | | BEVERLY RODRIGUEZ Case Investigator JENNIFER PAUL, | | Gender Female NurseProcedureType of Study [...] | | ------ Electronically signed by JENNIFER PAUL MD(Interpreting physician) on | | 03/11/2016 12:19 [...] [place] Volume: 55.29 | | ml EF Cauohbphe05% Left Ventricle | | Diastolic Dimension: 4.48 [...] | | | Electronically signed by JENNIFER PAUL MD(Interpreting physician) on | | 03/11/2016 12:19 [...] LA Volume: 55.29 ml | | EF Tsjncbzcb39% | | | | Left Ventricle | [...] + | [address] | [address] 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
--- OUTSIDE RECORDS SUMMARY | ~2019-07-24 | XMS | Encounter Summary ---
Demographics + + + | Address | [address] | | | [place] [address] | + + + | Home Phone [...] | Author | [facility] | | | and [place] | + + + | Organization | [facility] | | [...] | | | | | [place] [address] | | + + + + + | Valentín Saleh | ECON | [address] | | | | | [place] [address] | | + + + + + | Roberto Carlos Lennon | LEVI | [place] | | + + + + + Care Team Providers + +------+ + | Care Supervisor Safety Deposit Name | Role | Phone | + +------+ + PCP | Unavailable | + +------+ + Encounter Details +--------+ + + + + | Date | Type | Department | Care Team | Description | +--------+ + + + + | 02/06/ | Hospital | [facility] | | | | 1997 | Encounter | MED CTR XRAY [address] | | | | | | [place] | | | | | | [place] [address] | | | | | | [phone] | | | +--------+ + + + [...]
--- OUTSIDE RECORDS SUMMARY | ~2019-07-24 | XMS | Encounter Summary ---
Demographics + + + | Address | [address] | | | [place] [address] | + + + | Home Phone [...] Author | [facility] | | | and [place] | + + + | Organization | [facility] | | [...] | | | | | [place] [address] | | + + + + + | Valentín Saleh | ECON | [address] | | | | | [place] [address] | | + + + + + | Roberto Carlos Lennon | LEVI | Unknown | | + + + + + Care Team Providers + +------+ + | Care Roll Capper Name | Role | Phone | + [...] | | Practitioner | Unspecified | Francois Tlelo MD | [place], | | | | / Nephrology | essential | [address] | [place], | | | | | hypertension | [address] | BUSINESS LINE CONTROLLER [address] | | | | | Chronic | [place] | [address], | | | | | kidney | [place], [place] | [address] | | | | | disease, | [address] | [place], | | | | | stage III | Phone: | [place] [address] | | | | | (moderate) | [phone] | Phone: | | | | | (HCC) Type | Fax: | [phone] | | | | | II or | [phone] | Fax: | | | | | unspecified | | [phone] | | | | | type | [...] | | | | | | | CT OFFICE | | | | | | [...] | [address] | [address], [place] | (MODERATE) (Primary | | | | [place], [place] | [address] [place] | Dx); Hypertension, | | | | [address] | [address] | renal disease, stage | | | | [phone] | | 1-4 or unspecified | | | | | | chronic kidney | | | | | | disease; DM type 2, | | | | | | uncontrolled, 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
--- OUTSIDE RECORDS SUMMARY | ~2019-07-24 | XMS | Encounter Summary ---
Demographics + + + | Address | [address] | | | [place] [address] | + + + | Home Phone [...] | Author | [facility] | | | and [place] | + + + | Organization | [facility] | [...] | | | | | [place] [address] | | + + + + + | Valentín Saleh | ECON | [address] | | | | | [place] [address] | | + + + + + | Roberto Carlos Lennon | LEVI | [place] | | + + + + + Care Team Providers + +------+ + | Care Pearl Diver Name | Role | Phone | + +------+ + PCP | Unavailable | + +------+ + Encounter Details +--------+ + + + + | Date | Type | Department | Care Team | Description | +--------+ + + + + | 09/24/ | Hospital | [facility] | | | | 2004 | Encounter | MED CTR LABORATORY | | | | | | [address] | | | | | | [place] | | | | | | [address] | | | | | | [phone] | | | +--------+ + + + [...]
--- OUTSIDE RECORDS SUMMARY | ~2019-07-24 | XMS | Encounter Summary ---
Demographics + + + | Address | [address] | | | [place] [address] | + + + | Home Phone [...] | Author | [facility] | | | and [place] | + + + | Organization | [facility] | [...] | | | | | [place] [address] | | + + + + + | Valentín Saleh | ECON | [address] | | | | | [place] [address] | | + + + + + | Roberto Carlos Lennon | LEVI | Unknown | | + + + + + Care Team Providers + +------+ + | Care Industrial Safety Engineer Name | Role | Phone | + +------+ + | Francois Pascal MD | PCP | | + +------+ + Reason for Visit + + + | Reason | Comments | + + + | Blood Pressure | | + + + Encounter Details +--------+ + + + + | Date | Type | Department | Care Team | Description | +--------+ + + + + | 10/12/ | Telephone | [facility] [place] | [place], | Blood Pressure | | 2017 | | NEPHROLOGY [address] | [address] | | | | | [address] | [address] | | | | | [place], [place] | [address] [place] | | | | | [address] | [address] | | | | | [phone] | | | +--------+ + + + [...]
--- OUTSIDE RECORDS SUMMARY | ~2019-07-24 | XMS | Encounter Summary ---
Demographics + + + | Address | [address] | | | [place] [address] | + + + | Home Phone [...] [facility] | | | and [place] | + + + | Organization | [facility] | [...] | | | | | [place] [address] | | + + + + + | Valentín Saleh | ECON | [address] | | | | | [place] [address] | | + + + + + | Roberto Carlos Lennon | LEVI | Unknown | | + + + + + Care Team Providers + +------+ + | Care Chicken Hatchery Helper Name | Role | Phone | + +------+ + | Francois Pascal MD | PCP | | + +------+ + Reason for Visit + + + | Reason | Comments | + + + | Medical Clearance | | + + + Encounter Details +--------+ + + + + | Date | Type | Department | Care Team | Description | +--------+ + + + + | 06/02/ | Telephone | [facility] | Francois Pascal, | Medical Clearance | | 2016 | | MEDICINE [address] [place] [address] | [address] | | | | | [facility] | [address], | | | | | [place] [address] | [place] [address] | | | | | [phone] | [phone] | | | | | | | [...]
--- OUTSIDE RECORDS SUMMARY | ~2019-07-24 | XMS | Encounter Summary ---
Demographics + + + | Address | [address] | | | [place] [address] | + + + | Home Phone [...] | Author | [facility] | | | and [place] | + + + | Organization | [facility] [...] | | | | | [place] [address] | | + + + + + | Valentín Saleh | ECON | [address] | | | | | [place] [address] | | + + + + + | Roberto Carlos Lennon | LEVI | Unknown | | + + + + + Care Team Providers + +------+ + | Care Seo Executive Name | Role | Phone | + +------+ + | Francois Pascal MD | PCP | | + +------+ + Reason for Visit + + + | Reason | Comments | + + + | TCM - Hosp FU | | + + + Encounter Details +--------+ + + + + | Date | Type | Department | Care Team | Description | +--------+ + + + + | 04/09/ | Telephone | [facility] | Tiffany Sanz, | TCM - Hosp FU | | 2019 | | MEDICINE [facility] [address] | [address] | | | | | [place] | | | | | | [place] [address] | | | | | | [phone] | | | +--------+ + + + [...]
--- OUTSIDE RECORDS SUMMARY | ~2019-07-24 | XMS | Encounter Summary ---
Demographics + + + | Address | [address] | | | [place] [address] | + + + | Home Phone [...] [facility] [place] | | | and [place] | + + + | Organization | [facility] [...] | | | | | [place] [address] | | + + + + + | Valentín Saleh | ECON | [address] | | | | | [place] [address] | | + + + + + | Roberto Carlos Lennon | LEVI | Unknown | | + + + + + Care Team Providers + +------+ + | Care Ground Surveillance Systems Operator Name | Role | Phone | [...] Refill | | 2015 | | MEDICINE [facility] | [address] | | | | | [facility] | [address] [place], | | | | | [place] [address] | [place] [address] | | | | | [phone] | [phone] | | | | | | | [...]
--- OUTSIDE RECORDS SUMMARY | ~2019-07-24 | XMS | Encounter Summary ---
Demographics + + + | Address | [address] | | | [place] [address] | + + + | Home Phone [...] | Author | [facility] [place] | | | and [place] | + + + | Organization | [facility] [place] | | | and [place] | + + + | Address | Unknown | + + + | Phone | Unavailable | + + + Support + + + + + | Name | Relationship | Address | Phone | + + + + + | Sigrid Lennon | ECON | [address] | | | | | [place] [address] | | + + + + + | Valentín Saleh | ECON | [address] | | | | | [place] [address] | | + + + + + | Roberto Carlos Lennon | LEVI | Unknown | | + + + + + Care Team Providers + +------+ + | Care Improvement Specialist Name | Role | Phone | [...] + + | 12/26/ | Office | [facility] | Francois Pascal, | OSTEOARTHRITIS, | | 2011 | Visit | [facility] | [address] | ANKLE, LEFT; DM | | | | [address] | [address] [place], | (diabetes mellitus) | | | | [place], [place] | [place] [address] | ([facility]); Gout, | | | | [address] | [phone] | unspecified; | | | | [phone] | | HYPERTENSION NEC; | | | [...] VSD Father 50 Pneumonia Family Hx of Westerly's chorea Sister and 2 brothers: CAD, Airam's Disease to [place] - with 2 Healthy Children No kidney disease in family. Social History: Reviewed history from 08/11/2011 and no changes required: Born in [facility] for 46 years. and Remarried 2 [...] + | [facility] | [address] | [place] | [phone] | | [facility] | | [address] | | | - LABORATORY | | | | + + + + + | [facility] | [address] | [place] | | | [facility] | | [address] | | | - LABORATORY | | | | + + + + + documented in this encounter Visit Diagnoses + + | Diagnosis | + + | OSTEOARTHRITIS, ANKLE, LEFT Osteoarthrosis, unspecified whether generalized or | | localized, ankle and foot | + + | DM (diabetes mellitus) ([facility]) Type II or unspecified type diabetes mellitus without | | mention of complication, not stated as uncontrolled | + + | Gout, unspecified | + + | HYPERTENSION NEC Complications affecting other specified body systems, hypertension | + + | Hyperlipidemia Other and unspecified hyperlipidemia | + + documented in this encounter
--- OUTSIDE RECORDS SUMMARY | ~2019-07-24 | XMS | Encounter Summary ---
Demographics + + + | Address | [address] | | | [place] [address] | + + + | Home Phone [...] Author | [facility] [place] | | | and [place] | + + + | Organization | [facility] [place] [...] | | | | | [place] [address] | | + + + + + | Valentín Saleh | ECON | [phone] | | | | | [place] [address] | | + + + + + | Roberto Carlos Lennon | LEVI | Unknown | | + + + + + Care Team Providers + +------+ + | Care Shipping Hand Name | Role | Phone | + +------+ + | Francois Pascal MD | PCP | | + +------+ + Encounter Details +--------+ + + + + | Date | Type | Department | Care Team | Description | +--------+ + + + + | 11/14/ | Hospital | [facility] | Francois Pascal, | ARTHRITIS, CHRONIC | | 2013 | Encounter | MED CTR LABORATORY | [address] | | | | | [address] [place] | [address] [place], | | | | | [place], [place] | [place] [address] | | | | | [address] | [phone] | | | | | [phone] | | | +--------+ + + + [...] had appointment on 11/27 to discuss labs Francois Garcia MD - 11/20/2012 5:00 PM PDT Quick [...] | 12.8 | 6.0 - 17.0 | [facility] | [...] [address] | [place] | [phone] | | [facility] | | [address] | | | - LABORATORY | | | | + + + + + | [facility] | [address] | [place] | | | [facility] | | [address], [facility] | | | - LABORATORY [...] | + + + + + | [facility] | [address] | [place], [place] | [phone] | | [facility] | | [address] | | | - LABORATORY | | | | + + + + + | [facility] | [address] | [place], [place] | | | [facility] | | [address], [facility] | | | - LABORATORY | | | | + + + + + documented in this encounter Visit Diagnoses + + | Diagnosis | + + | ARTHRITIS, CHRONIC Arthropathy, unspecified, site unspecified | + + documented in this encounter"
--- OUTSIDE RECORDS SUMMARY | ~2019-07-24 | XMS | Encounter Summary ---
Demographics + + + | Address | [address] | | | [place] [address] | + + + | Home Phone [...] + | Author | [facility] | | | and [place] | + + + | Organization | [facility] | | [...] | | | | | [place] [address] | | + + + + + | Valentín Saleh | ECON | [address] | | | | | [place] [address] | | + + + + + | Roberto Carlos Lennon | LEVI | Unknown | | + + + + + Care Team Providers + +------+ + | Care Chain Saw Operator Name | Role | Phone | + +------+ + | Francois Pascal MD | PCP | | + +------+ + Encounter Details +--------+ + + + + | Date | Type | Department | Care Team | Description | +--------+ + + + + | 11/29/ | Hospital | [facility] | Francois Pascal, | Leg edema, left | | 2018 | Encounter | MED CTR ULTRASOUND | [address] | | | | | [address] [place] | [address], | | | | | [place] | [place] [address] | | | | | [address] | [phone] | | | | | [phone] | | | +--------+ + + + [...] tablet by | | 0 | | 08/28/201 | | [id number]-[id number] | mouth Daily. | | | | [...] ordering provider, by the | | | want ad clerk, immediately following the exam. Dictated and | | | Signed by: David Jon MD Electronically signed: 11/29/2017 | | | 2:00 PM | | + + + + + | Procedure Note | + + | Taras Melendez Results In - 11/29/2017 2:03 PM PDT [...] to the ordering provider, by the | |want ad clerk, immediately following the exam. | | | [...]
--- OUTSIDE RECORDS SUMMARY | ~2019-07-24 | XMS | Encounter Summary ---
Demographics + + + | Address | [address] | | | [place] [address] | + + + | Home Phone [...] | Author | [facility] | | | and [place] | + + + | Organization | [facility] | [...] | | | | | [place] [address] | | + + + + + | Valentín Saleh | ECON | [phone] | | | | | [place] [address] | | + + + + + | Roberto Carlos Lennon | LEVI | [place] | | + + + + + Care Team Providers + +------+ + | Care Outdoor Emergency Care Technician Name | Role | Phone | + +------+ + PCP | Unavailable | + +------+ + Encounter Details +--------+ + + + + | Date | Type | Department | Care Team | Description | +--------+ + + + + | 06/01/ | Hospital | [facility] | | | | 1996 - | Encounter | MED CTR ICU [address] | | | | | | [place], | | | | 06/02/ | | [place] [address] | | | | 1996 | | [phone] | | | +--------+ + + + [...]
--- OUTSIDE RECORDS SUMMARY | ~2019-07-24 | XMS | Encounter Summary ---
Demographics + + + | Address | [address] | | | [place] [address] | + + + | Home Phone [...] Author | [facility] | | | and [place] | + + + | Organization | [facility] | | | [...] | | | | | [place] [address] | | + + + + + | Valentín Saleh | ECON | [address] | | | | | [place] [address] | | + + + + + | Roberto Carlos Lennon | LEVI | Unknown | | + + + + + Care Team Providers + +------+ + | Care A Operator Name | Role | Phone | + +------+ + | Francois Pascal MD | PCP | | + +------+ + Encounter Details +--------+ + + + + | Date | Type | Department | Care Team | Description | +--------+ + + + + | 05/14/ | Orders Only | [facility] | [place], | CHRONIC KIDNEY | | 2015 | | NEPHROLOGY [address] | [address] | DISEASE STAGE III | | | | [address] | [address], [place] | (MODERATE) (Primary | | | | [place], [place] | [address] [facility] [place] | Dx); Type 2 diabetes | | | | [address] | [address] | mellitus with | | | | [phone] | | hyperglycemia (HCC); | | | | | | HYPERTENSION NEC | +--------+ + [...] encounter Progress Notes Zaynab Humphries RN - 05/14/2014 10:17 AM PDTLabs for nephrology appt on 06/06/14 sent to [facility] documented in this encounter Plan of Treatment Not on filedocumented as of this encounter Results Hemoglobin A1C (06/03/2014 9:23 [...] + | [facility] | [address] | [place] | [phone] | | [facility] | | [address] | | | - LABORATORY | | [...] ST. | [address] | [place], [place] | [phone] | | [facility] | | [address] | | | - LABORATORY | | [...] not | 45 (L)Comment: | >=60 | [facility] | | | | GLOMERULAR FILTRATION | mL/min/1.73m2 | [facility] | | | [place]AN[place] | RATE,ESTIMATED | | MEDICAL | | | | mL/min/1.81e8Ndnf than | | CENTER - | | [...] ST. 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
--- OUTSIDE RECORDS SUMMARY | ~2019-07-24 | XMS | Encounter Summary ---
Demographics + + + | Address | [address] | | | [place] [address] | + + + | Home Phone [...] | | | | | [place] [address] | | + + + + + | Valentín Saleh | ECON | [address] | | | | | [place] [address] | | + + + + + | Roberto Carlos Lennon | LEVI | Unknown | | + + + + + Care Team Providers + +------+ + | Care Security Incident Response Engineer Name | Role | Phone | [...] | instability | [address] | [address] | | | | [address] | [address] | [place], | | | | | (ICD-10-CM) | [place] | [place] [address] | | | | | - [address] | [place] | Phone: | | | | | (ICD-9-CM) - | [address] | [phone] | | | | | Gait | Phone: | Fax: | | | | | instability | [phone] | [phone] | | | | | Procedures | Fax: | | | | | | pt eval | [phone] | | +--------+ + + + + + Encounter Details +--------+---------+ + + + | Date | Type | Department | Care Team | Description | +--------+---------+ + + + | 12/24/ | Office | [facility] | Francois Pascal, | Unsteady (Primary | | 2015 | Visit | MED CTR THERAPY PT | [place] [address] | Dx); Posture | | | | OP [address] | [address] [place], | imbalance; Impaired | | | | [place] | [place] [address] | functional mobility, | | | | [address] | [phone] | balance, gait, and | | | | [phone] | | endurance | | | | | Kely Quinn, PT | | | | | | [address] | | | | | | [place] | | | | | | [address] | | | | | | | [...] Primary Functional Goal 1 Status Comment: currently 8/, uses 4WW Patient's Primary Functional Goal 2: Decrease pain from 5-7 /10 to 2 /10 at worst to impr ove start-up mobility and ability to complete ADL s of prolonged standing for meal prep an d wet cleaner machine. Patient's Primary Functional Goal 3: Increase ankle [...] Goal 1 Status: initiated HEP Treatment Plan/Interventions: 43189 PT Evaluation, 04789 Manual Therapy, 08355 Neuromuscular Re-education, 13491 Gait Tra ining, 83534 Therapeutic Exercise, 79951 Therapeutic Activity, 78540 Self Care/Home Manageme nt Requested # of Visits: 24 2x/wk for 12 weeks Certification From: 12/24/14 Certification To: 03/18/15 Kely Green PT Patient Name: Alyson Lennon/: 1930/ Kely Miller, PT - 12/24/2014 3:13 PM PDT [facility] CTR THERAPY PT OP [address] [place] [address] Physical Therapy Initial Assessment Date: 12/24/2014 Patient [...] DM type 2 (diabetes mellitus, type 2) ([facility]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 infarction ([facility]) (1994&1996) CAR with Hx of Myocardial infarction Other abnormal clinical finding Verebral Compression Fractures Glossitis CAD (coronary artery disease) CHF (congestive heart failure) ([facility]) Arthritis [place] (myocardial infarction) Carotid stenosis H/O ventricular septal [...] Rehab Precautions Office Visit from 12/24/2014 in [facility] CTR THERAPY PT OP Rehab Precautions [...] Functional Goal 1: Improve DGI score from 824 to >16/24 to reduce risk o f falls and increase functional mobility allowing for improved ability to complete ADL activ ities. Primary Functional Goal 1 Status Comment: currently 8/, uses 4WW Patient's Primary Functional Goal 2: Decrease pain from 5-7 /10 to 2 /10 at worst to impr ove start-up mobility and ability to complete ADL s of prolonged standing for meal prep an d wet cleaner machine. Patient's Primary Functional Goal 3: Increase ankle [...] Start of Care Date: 12/24/14 Treatment Plan/Interventions 33983 PT Evaluation, 97832 Manual Therapy, 62575 Neuromuscular Re-education, 08939 Gait Tra ining, 50573 Therapeutic Exercise, 85696 Therapeutic Activity, 33290 Self Care/Home Manageme nt Patient and/or family [...] in this enco unter Plan of Treatment + + +--------+ + [...]
--- OUTSIDE RECORDS SUMMARY | ~2019-07-24 | XMS | Encounter Summary ---
Demographics + + + | Address | [address] | | | [place] [address] | + + + | Home Phone [...] + | Author | [facility] | | | and [place] | + + + | Organization | [facility] | [...] | | | | | [place] [address] | | + + + + + | Valentín Saleh | ECON | [address] | | | | | [place] [address] | | + + + + + | Roberto Carlos Lennon | LEVI | [place] | | + + + + + Care Team Providers + +------+ + | Care Journeyman Level Acoustic Analyst Name | Role | Phone | + +------+ + PCP | Unavailable | + +------+ + Encounter Details +--------+ + + + + | Date | Type | Department | Care Team | Description | +--------+ + + + + | 12/23/ | Hospital | [facility] | | | | 2006 | Encounter | MED CTR LABORATORY | | | | | | [address] [place] | | | | | | [place] | | | | | | [address] | | | | | | [phone] | | | +--------+ + + + [...]
--- OUTSIDE RECORDS SUMMARY | ~2019-07-24 | XMS | Encounter Summary ---
Demographics + + + | Address | [address] | | | [place] [address] | + + + | Home Phone [...] Author | [facility] | | | and [place] | + + + | Organization | [facility] [...] | | | | | [place] [address] | | + + + + + | Valentín Saleh | ECON | [address] | | | | | [place] [address] | | + + + + + | Roberto Carlos Lennon | LEVI | Unknown | | + + + + + Care Team Providers + +------+ + | Care Avp Name | Role | Phone | + [...] | +--------+ + + + + | 03/26/ | Telephone | [facility] | Francois Pascal, | Paperwork | | 2019 | | [facility] [place] | [address] | | | | | [address] | [address] [place] [place], | | | | | [place] | [place] [address] | | | | | [address] | [phone] | | | | | [phone] | | | +--------+ + + + [...]
--- OUTSIDE RECORDS SUMMARY | ~2019-07-24 | XMS | Encounter Summary ---
Demographics + + + | Address | [address] | | | [place] [address] | + + + | Home Phone [...] | Author | [facility] | | | and [place] | + + + | Organization | [facility] [...] | | | | | [place] [address] | | + + + + + | Valentín Saleh | ECON | [address] | | | | | [place] [address] | | + + + + + | Roberto Carlos Lennon | LEVI | Unknown | | + + + + + Care Team Providers + +------+ + | Care Party Coordinator Name | Role | Phone | + +------+ + | Francois Pascal MD | PCP | | + +------+ + Encounter Details +--------+ + + + + | Date | Type | Department | Care Team | Description | +--------+ + + + + | 05/22/ | Hospital | [facility] | [place]ack[place], | CHRONIC KIDNEY | | 2013 | Encounter | MED CTR LABORATORY | [address] | DISEASE STAGE III | | | | [address] [place] | [address] [place] | (MODERATE); | | | | [place], [place] | [address] [place], [place] | HYPERTENSION NEC; | | | | [address] | [address] | Vitamin D | | | | [phone] | | deficiency; Diabetes | | | | | Francois Pascal, | mellitus (HCC); | | | | | [address] | Hyperlipidemia; DM | | | | | [address] [place], | (diabetes mellitus) | | | | | [place] [address] | (HCC) | | | | | [phone] | | | | | | | [...] TABLET BY | 180 | 1 | 03/20/19 | | | (ZYLOPRIM) 100 mg | [...] DIRECTED, | 20 mL | 5 | 03/05/20 | | | UNIT/ML injection | 15 UNITS IN THE | | | 13 | 4 | | | MORNING, 20 [...] +---------+ + + | sitaGLIPtin | Take 1 tablet by | 90 | 1 | 03/21/19 | | | (JANUVIA) 100 mg | mouth Daily. | tablet | | 14 | 4 | | tabletIndications: | | | | | | | Diabetes mellitus | | | | | | | (HCC) | | | | | | + + + +---------+ + + documented as of this encounter Progress Notes Francois Pascal MD - 05/22/2013 4:33 PM PDT Quick Note: Ok for [...] + | URINALYSIS WITH | Routin | 05/22/2013 | HYPERTENSION NEC | Results for this | | MICROSCOPIC IF | e | 12:08 PM | | procedure are in the | | INDICATED | | PDT | | results section. | + +--------+ + + + | LIPID PROFILE | Routin | 05/22/2013 | Hyperlipidemia | Results for this | | | e | 10:26 AM | | procedure are in the | | | | PDT | | results section. | + +--------+ + + + | VITAMIN D, | Routin | 05/22/2013 | Vitamin D | Results for this | | DEFICIENCY SCREEN | e | 10:26 AM | deficiency | procedure are in the | | (25-HYDROXY) | | PDT | | results section. | + +--------+ + + + | CBC WITH | Routin | 05/22/2013 | HYPERTENSION NEC | Results for this | | DIFFERENTIAL | e | 10:26 AM | | procedure are in the | | | | PDT | | results section. | + +--------+ + + + | HEMOGLOBIN A1C | Routin | 05/22/2013 | Diabetes mellitus | Results for this | | | e | 10:26 AM | (HCC) | procedure are in the | | | | PDT | | results section. | + +--------+ + + + | RENAL FUNCTION PANEL | Routin | 05/22/2013 | CHRONIC KIDNEY | Results for this | | | e | 10:26 AM | DISEASE STAGE III | procedure are in the | | | | PDT | (MODERATE) | results section. | + +--------+ + + + | COMPREHENSIVE | Routin | 05/22/2013 | HYPERTENSION NEC | Results for this | | METABOLIC PANEL | e | 10:26 AM | | procedure are in the [...] - 1.030 | [facility] | | | [place], | | | [facility] | | [...] Urine | | not performed | [facility] [...] [address] | [place] | [phone] | | [facility] | | [address] | | | - LABORATORY | | | | + + + + + | [facility] | [address] | [place] | | | [facility] | | [address], [facility] | | | - [...] + | [facility] | [address] | [place], [place] | [phone] | | [facility] | | [address] | | | - LABORATORY | | | | + + + + + | [facility] | [address] | [place], [place] | | | [facility] | | [facility], [facility] | | | - [...] | 1.10 | 0.60 - 1.30 | [facility] | | | | | mg/dL | [facility] | | | | | | MEDICAL | | | | | | CENTER - | | | | | | LABORATORY | | + + + + + + | eGFR if not | 48 (L)Comment: | >=60 | [facility] | | | | GLOMERULAR FILTRATION | mL/min/1.73m2 | [facility] | | | IRANIAN | RATE,ESTIMATED | | MEDICAL | | | | mL/min/1.54b3Xwmy than | | CENTER - | | [...] + | [facility] | [address] | [place] | [phone] | | [facility] | | [address] | | | - LABORATORY | | | | + + + + + | [facility] | [address] | [place], [place] | | | [facility] | | [id number] [place] [address] | | | - LABORATORY | | | | + + + + + Hemoglobin A1C (05/22/2013 10:26 AM PDT) + [...] + | [facility] | [address] | [place] | [phone] | | [facility] | | [address] | | | - LABORATORY | | | | + + + + + | [facility] | [address] | [place], [place] | | | [facility] | | [address], [facility] | | | - LABORATORY | | | | + + + + + Vitamin D, 25-Hydroxy (05/22/2013 10:26 AM PDT) [...] + | [facility] | [address] | [place] | [phone] | | [facility] | | [address] | | | - LABORATORY | | | | + + + + + | [facility] | [address] | [place] | | | [facility] | | [address], [facility] | | | - [...] (H) | 4.0 - 11.0 K/uL | [facility] | | | | | [...] + | [facility] | [address] | [place] | [phone] | | [facility] | | [address] | | | - LABORATORY | | | | + + + + + | [facility] | [address] | [place] | | | [facility] | | [address] [place] [address] | | | - LABORATORY | | [...] | 1.07 | 0.60 - 1.30 | [facility] | | | | | mg/dL | [facility] | | | | | | MEDICAL | | | | | | CENTER - | | | | | | LABORATORY | | + + + + + + | eGFR if not | 49 (L)Comment: | >=60 | [facility] | | | | GLOMERULAR FILTRATION | mL/min/1.73m2 | [facility] | | | IRANIAN | RATE,ESTIMATED | | MEDICAL | | | | mL/min/1.33o1Hatl than | | CENTER - | | [...] [address] | [place] | [phone] | | [facility] | | [address] | | | - LABORATORY | | | | + + + + + | [facility] | [address] | [place] | | | [facility] | | [address], [facility] | | | - LABORATORY | | | | + + + + + documented in this encounter Visit Diagnoses + + | Diagnosis | + + | CHRONIC KIDNEY DISEASE STAGE III (MODERATE) Chronic kidney disease, Stage III | | (moderate) | + + | HYPERTENSION NEC Complications affecting other specified body systems, hypertension | + + | Vitamin D deficiency Unspecified vitamin D deficiency | + + | Diabetes mellitus (HCC) Type II or unspecified type diabetes [...]
--- OUTSIDE RECORDS SUMMARY | ~2019-07-24 | XMS | Encounter Summary ---
Demographics + + + | Address | [address] | | | [place] [address] | + + + | Home Phone [...] | Author | [facility] | | | and Clarkeana | + + + | Organization | [facility] [...] | | | | | [place] [address] | | + + + + + | Valentín Saleh | ECON | [phone] | | | | | [place] [address] | | + + + + + | Roberto Carlos Lennon | LEVI | [place] | | + + + + + Care Team Providers + +------+ + | Care Feeder Operator Automatic Name | Role | Phone | + +------+ + PCP | Unavailable | + +------+ + Encounter Details +--------+ + + + + | Date | Type | Department | Care Team | Description | +--------+ + + + + | 11/01/ | Hospital | [facility] | | | | 2002 | Encounter | MED CTR LABORATORY | | | | | | [address] | | | | | | [place] | | | | | | [address] | | | | | | [phone] | | | +--------+ + + + [...]
--- OUTSIDE RECORDS SUMMARY | ~2019-07-24 | XMS | Encounter Summary ---
Demographics + + + | Address | [address] | | | [place] [address] | + + + | Home Phone [...] Author | [facility] | | | and [place]ana | + + + | Organization | [facility] | [...] | | | | | [place] [address] | | + + + + + | Valentín Saleh | ECON | [phone] | | | | | [place] [address] | | + + + + + | Roberto Carlos Lennon | LEVI | Unknown | | + + + + + Care Team Providers + +------+ + | Care Ux Visual Designer Name | Role | Phone | [...] | [address] | [address], [place] | | | | | [place], [place] | [address] [place] | | | | | [address] | [address] | | | | | [phone] | | | +--------+ + + + [...]
--- OUTSIDE RECORDS SUMMARY | ~2019-07-24 | XMS | Encounter Summary ---
Demographics + + + | Address | [address] | | | [place] [address] | + + + | Home Phone [...] | Author | [facility] | | | and Clarkeana | + + + | Organization | [facility] | | [...] | | | | | [place] [address] | | + + + + + | Valentín Saleh | ECON | [phone] | | | | | [place] [address] | | + + + + + | Roberto Carlos Lennon | LEVI | Unknown | | + + + + + Care Team Providers + +------+ + | Care Drill Rig Operator Helper Name | Role | Phone [...] | | | | | | | ([facility]) | | | +--------+--------+ + + + + Encounter Details +--------+ + + + + | Date | Type | Department | Care Team | Description | +--------+ + + + + | 04/05/ | Emergency | [facility] | Nik Olea, | Urinary tract | | 2019 - | | MED CTR MEDICAL | [address] | infection without | | | | [address] [place] | [facility] [place] | hematuria, site | | 04/06/ | | [place] [address] | [place] [address] | unspecified (Primary | | 2019 | | [phone] | [phone] | Dx); Somnolence; | | | | | | Dementia due to | | | | | Royal Avila MD | Alzheimer's disease | | | | | [address] | ([facility]); Hypertension, | | | | | [place] | renal disease, | | | | | [address] | stage 1-4 or | | | | | | unspecified chronic | | | | | Rosibel Aguilar MD | kidney disease | | | | | [address] | | | | | | [place] | | | | | | [address] | | | | | | | [...] Aguilar MD - 04/06/2019 11:30 AM PST [place], [place] HOSPITALIST DISCHARGE SUMMARY Pt. Name/Age/: Alyson [...] and patient reported she was back to [facility] the morning after admission. Continue cefdinir to [...] units 401+ = 10 units CALL MD aka: novoLOG insulin glargine 100 units/mL injection (vial) 10 units every morning and 10 units every evening aka: LANTUS Insulin Syringe-Needle U-100 31G X 5/16" 0.3 ML [facility] USE TO ADMINISTER LANTUS INSULIN TWO TIMES [...] assist with movement and proper repositioning to [facility]. UNCODED DME A hospital bed medically indicated [...] at 11:00 Contact information: [address] [place] [address] Condition: stable Diet: cc Less than 30 minutes were spent on discharge and coordination of post-hospital care. Electronically signed by: Rosibel Aguilar MD, 04/06/2019 11:30 AM [facility] documented in this enco unter Discharge [...] | | | | | | | -634 = 2 | | | | | | | -659 = 4 | | | | | [...] | | | | | | | ([facility]) | | | | | | + [...] PM PSTPt discharged to adult home in [facility] with gopi hernández. mbrocio Jorge, Assistant Director Of Nursing - 04/06/2019 10:54 AM PSTFormatting of this note might be different f rom the original. PHARMACY SERVICES: ADMISSION MEDICATION REVIEW Alyson Lennon is a 88 y.o. female admitted on 04/05/2019. Patient is not a reliable historian. Location of Patient when reviewed: MEDICAL FLOOR Patient s prior to admit medication and over the counter (OTC) medications/herbal supplem ents list obtained from: X MAY from facility: [facility] x Doctor's office: Dr. Pascal Vaccines up to date? Influenza Yes Pneumococcal Yes Tdap Unsure Shingles Yes Noted medications discrepancies or medication-related issues: Dosage/Form/Frequency change: AGENT LICENSING CLERK Medication: Prior to Admission Sig: Correct Dosage/Form: [...] Prior to Admission Sig: Patient taking differently AGENT LICENSING CLERK as: Colchicine 0.6 mg tab 2 tabs by mouth at first sign of gout flare then 1 tab daily as need ed Not taking This is not on the MAR at [facility] Best possible AGENT LICENSING CLERK medication list after pharmacy review: PT REPORTED TAKING NOT TAKING Medication Sig Last Dose Dispense Doc. Michelle acetaminophen (TYLENOL) 325 mg tablet Take 2 [...] = 10 units CALL MD Taking Historical ProviderMD insulin glargine (LANTUS) 100 units/mL injection (vial) [...] BY MOUTH EVERY DAY Taking 90 t carolynt Francois Pascal MD methotrexate 2.5 mg tablet Take 2 tablets by mouth Once a week. Indications: Rheumatoid Ar thritis Taking 20 tablet Francois Pascal MD metoprolol succinate (TOPROL-XL) 100 mg ER tablet Take 1 tablet by mouth Daily. Taking 90 tablet Francois Pascal MD rivaroxaban (XARELTO) 10 mg tablet Take 1 tablet by mouth Daily (with dinner). Taking 90 t melida Pascal MD triamcinolone (KENALOG) 0.1% cream Apply to affected area twice daily Historical Ashley bundy MD trolamine salicylate (ASPERCREME) 10% cream Apply to hands and joints topically as needed for osteoarthritis up to four times daily Historical Provider, MD ESCOBAR DME Bed rails for patient bed. Taking 1 each MD LUZ Membreno DME A wheelchair are medically indicated to assist with movement and proper reposi tioning to prevent decubiti. Taking 1 each Francois Pascal MD UNCODED DME A hospital bed medically indicated to assist with movement and proper repositi oning to prevent decubiti. Taking 1 each Francois Pascal MD Medication review performed and electronically signed by Maria Isabel Vaughn, White Mixing Operator 2019 10:16 AM Reviewed by Francois Jorge, Assistant Director Of Nursing 04/06/2019 10:46 AM doc umented in this encounter Plan of Treatment Not [...] | | | POC | | [facility] | | | | | [...] | + + + + + | [facility] | [address] | [place] | [phone] | | [facility] | | [address] | | | - LABORATORY | | [...] + | [facility] | [address] | [place] | [phone] | | [facility] | | [address] | | | - LABORATORY | | [...] not | >60Comment: GLOMERULAR | >=60 | [facility] | | | | FILTRATION | mL/min/1.73m2 | [facility] | | | [place] | RATE,ESTIMATED | | MEDICAL | | | | mL/min/1.95q5Cpso than | | CENTER - | | [...] + | [facility] | [address] | [place] | [phone] | | [facility] | | [address] | | | - LABORATORY | | [...] + + + + | RBC | 3.90 | 3.70 - 5.20 | [...] | nRBC | | K/uL | [facility] | | | | | | MEDICAL [...] [address] | [place] | [phone] | | [facility] | | [address] | | | - LABORATORY | | [...] [address] | [place] | [phone] | | [facility] | | [address] | | | - LABORATORY | | | | + + + + + Culture, Urine (04/05/2019 10:14 PM PST) + + + + + + | Component | Value | Ref Range | Performed | Pathologist | | | | | At | Signature | + + + + + + | Culture | >100,000 CFU/ml | | [facility] | | | | Escherichia coli | [...] [address] | [place] | [phone] | | [facility] | | [address] | | | - LABORATORY | | [...] 1.030 | [facility] | | | [place], | | | [facility] | | [...] + | [facility] | [address] | [place] | [phone] | | [facility] | | [address] | | | - LABORATORY | | [...] ST. | [address] | [place], [place] | [phone] | | [facility] | | [address] | | | - LABORATORY | | [...] + | [facility] [facility] | [address] | [place], [place] | [phone] | | [facility] | | [address] | | | - LABORATORY | | [...] + + | Performing | Address | City/State/[facility] Cent[facility]ode | Phone Number | | Organization | [...] | | | Comment:Reference | | [facility] | | | | Ranges: 0.00-0.06 = [...] | | | | | | [employer] | | | | | [...] [address] | [place] | [phone] | | [facility] | | [address] | | | - LABORATORY | | [...] | | | | | mmol/L | [facility] | | | | [...] + | [facility] | [address] | [place] | [phone] | | [facility] | | [address] | | | - LABORATORY | | | | + + + + + Procalcitonin (04/05/2019 9:15 PM PST) + + + + + + | Component | Value | Ref Range | Performed | Pathologist | | | | | At | Signature | + + + + + + | Procalciton | <0.05 | <=0.50 ng/mL | [facility] | | | in | | | [facility] | | [...] [address] | [place] | [phone] | | [facility] | | [address] | | | - LABORATORY | | [...] 15 | 9 - 23 mg/dL | [facility] | | | | | | [facility] | | | | | | MEDICAL | | | | | | CENTER - | | | | | | LABORATORY | | + + + + + + | Creatinine | 0.90 | 0.55 - 1.02 | [facility] | | | | | mg/dL | [facility] | | | | | | MEDICAL | | | | | | CENTER - | | | | | | LABORATORY | | + + + + + + | eGFR if not | 59 (L)Comment: | >=60 | [facility] | | | | GLOMERULAR FILTRATION | mL/min/1.73m2 | [facility] | | | [place] | RATE,ESTIMATED | | MEDICAL | | | | mL/min/1.89k8Dixq than | | CENTER - | | [...] | | | | | mg/dL | [facility] | | | | | | MEDICAL | | | | | | CENTER - | | | | | | LABORATORY | | + + + + + + | Albumin | 3.5 | 3.2 - 4.8 g/dL | [facility] | | | | [...] [address] | [place] | [phone] | | [facility] | | [address] | | | - LABORATORY | | | | + + + + + CBC with Differential (04/05/2019 9:15 PM PST) + + + + + + | Component | Value | Ref Range | Performed | Pathologist | | | | | At | Signature | + + + + + + | WBC | 11.5 (H) | 4.0 - 11.0 K/uL | [facility] | | | | | | [facility] | | | | | | MEDICAL | | | | | | CENTER - | | | | | | LABORATORY | | + + + + + + | RBC | 3.84 | 3.70 - 5.20 | [facility] | | | | | M/uL | [facility] | | | | [...] | Basophils | | K/uL | [facility] | | | | | | MEDICAL | | | | | | CENTER - | | | | | | LABORATORY | | + + + + + + | Absolute | 0.04 (H) | 0.00 - 0.03 | [facility] | | | Immature | | K/uL | [facility] | | | Granulocyte | | | [...] | 0.00 | 0.00 - 0.01 | [facility] | | | nRBC | | K/uL | [facility] | [...] [address] | [place] | [phone] | | [facility] | | [address] | | | - LABORATORY | | [...] + | [facility] | [address] | [place] | [phone] | | [facility] | | [address] | | | - LABORATORY | | [...] | | | | ROSALBA VERDUGO MD ([id number]) | | | | | | on [...] | | | | 30 Minutes, ONCE, [facility] 04/05/19 at | | | | | [...] | | | | | dose on 04/06/19 at 0900 | | AM PST [...] | Arm-Left | | SOLOSTAR) injection (pen) 10 | | 20 8:03 | | | Upper | | [...] | | | (after last modification) on Fri | | | | | | | 04/06/19 at 0915 | | | | | | + +-------+ +-------+---+---+ +---+---+ | | | +---+---+ documented in this encounter
--- OUTSIDE RECORDS SUMMARY | ~2019-07-24 | XMS | Encounter Summary ---
Demographics + + + | Address | [address] | | | [place] [address] | + + + | Home Phone [...] | Author | [facility] | | | and Clarkeana | + + + | Organization | [facility] [...] | | | | | [place] [address] | | + + + + + | Valentín Saleh | ECON | [phone] | | | | | [place] [address] | | + + + + + | Roberto Carlos Lennon | LEVI | Unknown | | + + + + + Care Team Providers + +------+ + | Care Overedger Name | Role | Phone | + +------+ + | Francois Pascal MD | PCP | | + +------+ + Encounter Details +--------+ + + + + | Date | Type | Department | Care Team | Description | +--------+ + + + + | 12/02/ [facility] | [place], | CHRONIC KIDNEY | | 2015 | Encounter | MED CTR LABORATORY | [address] | DISEASE STAGE III | | | | [address] | [address] [facility] | (MODERATE) | | | | [place] | [address] | | | | | [address] | [address] | | | | | [phone] | | | +--------+ + + + [...] 81 MG EC tablet | mouth Tuesday thr | | | 12 | 6 | [...] | | | | mellitus) ([facility]) | | | | | | [...] | | | | mellitus) ([facility]) | DINNER | | | | [...] [address] | [place] | [phone] | | [facility] | | [address] | | | - LABORATORY | | [...] not | 37 (L)Comment: | >=60 | [facility] | | | | GLOMERULAR FILTRATION | mL/min/1.73m2 | [facility] | | | [place] | RATE,ESTIMATED | | MEDICAL | | | | mL/min/1.44d8Vvjo than | | CENTER - | | [...] 3.3 | 3.2 - 5.0 g/dL | [facility] [...] [address] | [address] | [phone] | | [facility] | | [address] | | | - LABORATORY | | | | + + + + + documented in this encounter Visit Diagnoses + + | Diagnosis | + + | CHRONIC KIDNEY DISEASE STAGE III (MODERATE) Chronic kidney disease, Stage III | | (moderate) | + + documented in this encounter"
--- OUTSIDE RECORDS SUMMARY | ~2019-07-24 | XMS | Encounter Summary ---
Demographics + + + | Address | [address] | | | [place] [address] | + + + | Home Phone [...] Author | [facility] | | | and Clarkeana | + + + | Organization | [facility] [...] | | | | | [place] [address] | | + + + + + | Valentín Saleh | ECON | [phone] | | | | | [place] [address] | | + + + + + | Roberto Carlos Lennon | LEVI | Unknown | | + + + + + Care Team Providers + +------+ + | Care Radius Corner Machine Operator Name | Role | Phone [...] + + | 10/02/ | Office | [facility] | Francois Pascal, | CHRONIC KIDNEY | | 2012 | Visit | [facility]ICINE [place] | [address] | DISEASE STAGE III | | | | [address] | [address] [place], | (MODERATE) (Primary | | | | [place], [place] | [place] [address] | Dx); DM (diabetes | | | | [address] | [phone] | mellitus) (HCC); | | | | [phone] | | Hyperlipidemia; | | | | [...] VSD Father 50 Pneumonia Family Hx of Telfair's chorea Sister and 2 brothers: CAD, Telfair's Disease to [place] - with 2 Healthy Children No kidney disease in family. Social History: Reviewed history from 08/11/2011 and no changes required: Born in [facility] for 47 [...] continues to bother her. She will con legislative advocate exercize therapy which i think would be [...]
--- OUTSIDE RECORDS SUMMARY | ~2019-07-24 | XMS | Encounter Summary ---
Demographics + + + | Address | [address] | | | [place] [address] | + + + | Home Phone [...] + | Author | [facility] | | | and [place]ana | + + + | Organization | [facility] | [...] | | | | | [place] [address] | | + + + + + | Valentín Saleh | ECON | [phone] | | | | | [place] [address] | | + + + + + | Roberto Carlos Lennon | LEVI | Unknown | | + + + + + Care Team Providers + +------+ + | Care Nuclear Spectroscopist Name | Role | Phone | + [...] | disease, | [address] | RET[address] | | | | | stage 3 | [place] | [address], | | | | | (moderate) | [place] | [address] | | | | | (HCC) | [address] | [place], | | | | | Hypertension | Phone: | [place] [address] | | | | | , renal | [phone] | Phone: | | | | | disease | Fax: | [phone] | | | | | Procedures | [phone] | Fax: | | | | | ME OFFICE | | [phone] | | | | | OUTPATIENT | | | | | | | VISIT 25 | | | | | | | MINUTES | | | +--------+--------+ + + + + Encounter Details +--------+---------+ + + + | Date | Type | Department | Care Team | Description | +--------+---------+ + + + | 04/05/ | Office | [facility] [place] | [place], | CHRONIC KIDNEY | | 2017 | Visit | NEPHROLOGY [address] | [address] | DISEASE STAGE III | | | | [address] | [address], [place] | (MODERATE) (Primary | | | | [place] | [address] | Dx); Hypertension, | | | | [address] | [address] | renal disease, stage | | | | [phone] | | 1-4 or unspecified | | [...] List Diagnosis Date Noted DM (diabetes mellitus) ([facility]) 12/27/2011 Priority: High Glossitis Priority: High Hyperlipidemia Priority: High CHRONIC KIDNEY DISEASE STAGE III (MODERATE) Priority: High Essential hypertension with goal blood pressure less than 130/80 05/25/2010 Priority: High OSTEOARTHRITIS, ANKLE, LEFT 01/21/2010 Priority: High Gout, unspecified 01/21/2010 Priority: Medium Note Last Updated: 12/07/2014 ICD-10 Record update Gingival bleeding 12/02/2015 Diabetic neuropathy ([facility]) 11/26/2015 Unsteady 12/24/2014 Posture imbalance 12/24/2014 Impaired [...] 10/21/2014 Note Last Updated: 01/08/2015 Problem list sweeper driver utility Cerebral contusion without loss of consciousness, unspecified laterality, sequela ([facility]) 10/21/2014 Transient alteration of awareness 10/17/2014 Head contusion, initial encounter 10/17/2014 Note Last Updated: 01/08/2015 Problem list sweeper driver utility Left ankle pain 07/30/2014 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 11/27/2012 Note Last Updated: 12/16/2015 Problem list sweeper driver utility Preventative health care 03/23/2012 Note Last Updated: 09/27/2012 CRSC:03/23/2002normal except for redundancy and atonicity Next Due: Mammo:03/02/2012 benign Next:03/02/2013 Pap:03/24/2009 negative Next: CAROTID STENOSIS AMAUROSIS FUGAX DEMYELINATING DISEASE, CENTRAL NERVOUS SYSTEM FRACTURE, ANKLE, LEFT VITAMIN D DEFICIENCY Hypertension, renal disease DM type 2, uncontrolled, with renal complications ([facility]) 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 90 tablet 3 Peyfuia-Ndmihubmw-Rduizcg D (CALCIUM 500 PO) Take by mouth [...] 3 chronic kidney disease, unspecified | | detention insulin use status | + + | Vitamin D deficiency Unspecified vitamin D deficiency | + + documented in this encounter
--- OUTSIDE RECORDS SUMMARY | ~2019-07-24 | XMS | Encounter Summary ---
Demographics + + + | Address | [address] | | | [place] [address] | + + + | Home Phone [...] Author | [facility] | | | and [place]ana | + + + | Organization | [facility] [...] | | | | | [place] [address] | | + + + + + | Valentín Saleh | ECON | [phone] | | | | | [place] [address] | | + + + + + | Roberto Carlos Lennon | LEVI | Unknown | | + + + + + Care Team Providers + +------+ + | Care Roastmaster Name | Role | Phone | + +------+ + | Francois Pascal MD | PCP | | + +------+ + Encounter Details +--------+---------+ + + + | Date | Type | Department | Care Team | Description | +--------+---------+ + + + | 12/26/ | Office | [facility] | Francois Pascal, | Glossitis (Primary | | 2012 | Visit | MEDICINE [place] | [address] | Dx) | | | | [address] | [address] [place], | | | | | [place] | [place] [address] | | | | | [address] | [phone] | | | | | [phone] | | | +--------+---------+ + + + [...] documented in this encounter Progress Notes Francois Pacsal MD - 12/26/2012 2:58 PM PDTFormatting of this note might be different f rom the original. Subjective: Patient ID: Alyson Lennon is a 81 y.o. female. HPI Autoimmune glossitis, She has been on MTX for 7-8 years, She understands the risk to her liver. Dr Solo was her software development specialist at [facility] for this. It gets very irritated [...]
--- OUTSIDE RECORDS SUMMARY | ~2019-07-24 | XMS | Encounter Summary ---
Demographics + + + | Address | [address] | | | [place] [address] | + + + | Home Phone [...] + | Author | [facility] | | | and [place]ana | + + + | Organization | [facility] | [...] | | | | | [place] [address] | | + + + + + | Valentín Saleh | ECON | [phone] | | | | | [place] [address] | | + + + + + | Roberto Carlos Lennon | LEVI | Unknown | | + + + + + Care Team Providers + +------+ + | Care Die Cutter Name | Role | Phone | [...] + + | 11/27/ | Office | [facility] | [place], | CHRONIC KIDNEY | | 2012 | Visit | NEPHROLOGY [address] | [address] | DISEASE STAGE III | | | | [address] | [address], [place] | (MODERATE) (Primary | | | | [place] | [address] | Dx) | | | | [address] | [address] | | | | | [phone] | | | +--------+---------+ + + + [...] understanding of above plan. CC: Francois Pascal [facility] Review of Systems Physical Exam documented i n this encounter Plan of Treatment Not on filedocumented as of this encounter Visit Diagnoses + + | Diagnosis | + + | CHRONIC KIDNEY DISEASE STAGE III (MODERATE) - Primary Chronic kidney disease, Stage | | III (moderate) | + + documented in this encounter
--- OUTSIDE RECORDS SUMMARY | ~2019-07-24 | XMS | Encounter Summary ---
Demographics + + + | Address | [address] | | | [place] [address] | + + + | Home Phone [...] | Author | [facility] | | | and [place]ana | + + + | Organization | [facility] | | [...] | | | | | [place] [address] | | + + + + + | Valentín Saleh | ECON | [phone] | | | | | [place] [address] | | + + + + + | Roberto Carlos Lennon | LEVI | [place] | | + + + + + Care Team Providers + +------+ + | Care Art Teacher Name | Role | Phone | + +------+ + PCP | Unavailable | + +------+ + Encounter Details +--------+ + + + + | Date | Type | Department | Care Team | Description | +--------+ + + + + | 05/27/ | Hospital | [facility] | Jason Hernandez, | | | 2009 | Encounter | MED CTR XRAY [address] | PA-C [address] | | | | | [place] | [address] [place] | | | | | [place] [address] | [place] [address] | | | | | [phone] | [phone] | | | | | | | [...]
--- OUTSIDE RECORDS SUMMARY | ~2019-07-24 | XMS | Encounter Summary ---
Demographics + + + | Address | [address] | | | [place] [address] | + + + | Home Phone [...] | Located Within [facility] | | | and [place] | + + + | Organization | Located Within [facility] | [...] | | | | | [place] [address] | | + + + + + | Valentín Saleh | ECON | [address] | | | | | [place] [address] | | + + + + + | Roberto Carlos Lennon | LEVI | Unknown | | + + + + + Care Team Providers + +------+ + | Care Sider Name | Role | Phone | + +------+ + | Francois Pascal MD | PCP | | + +------+ + Reason for Visit + + + | Reason | Comments | + + + | Follow-up | suture removal | + + + Encounter Details +--------+---------+ + + + | Date | Type | Department | Care Team | Description | +--------+---------+ + + + | 12/11/ | Office | [facility] | Francois Pascal, | Squamous carcinoma | | 2013 | Visit | [facility] | [address] | (HCC) (Primary Dx) | | | | [address] | [address], | | | | | [place] | [place] [address] | | | | | [address] | [phone] | | | | | [phone] | | | +--------+---------+ + + + [...] + + + | Blood Pressure | 122/66 | 12/11/2012 1:35 PM | | | | | PDT | | + + + + + | Pulse | 62 | 12/11/2012 1:35 PM | | | | | PDT | | + + + + + | Temperature | 36.6 C (97.9 F) | 12/11/2012 1:35 PM | | | | | PDT | | + + + + + | Respiratory Rate | 20 | 12/11/2012 1:35 PM | | | | | PDT | | + + + + + | Oxygen Saturation | 98% | 12/11/2012 1:35 PM | | | | | PDT | | + + + + + | Inhaled Oxygen | - | - | | | Concentration | | | | + + + + + | Weight | 78 kg (172 lb) | 12/11/2012 1:35 PM | | | | | PDT | | + + + + + | Height | 158.8 cm (5' 2.5") | 12/11/2012 1:35 PM | | | | | PDT | | + + + + + | Body Mass Index | 30.96 | 12/11/2012 1:35 PM | | | | | PDT | | + + + + + documented in this encounter Progress Notes Francois Pascal MD - 12/11/2012 1:54 PM PDTFormatting of this note might be different f rom the original. Subjective: Patient ID: Alyson Lennon is a 81 y.o. female. 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 There is no pain now. She did lose a stit ch. Review of Systems Objective: Physical Exam Right wrist with well healed surgical incision. There is no erythema or d/c Assessment: 1. Squamous carcinoma Plan: Will remove her sutures. Reviewed path with the patient. documented in this encounter Plan of Treatment Not on filedocumented as of this encounter Visit Diagnoses + + | Diagnosis | + + | Squamous carcinoma - Primary Other malignant neoplasm without specification of site | + + documented in this encounter
--- OUTSIDE RECORDS SUMMARY | ~2019-07-24 | XMS | Encounter Summary ---
Demographics + + + | Address | [address] | | | [place] [address] | + + + | Home Phone [...] | [facility] | | | and [place] | + + + | Organization | [facility] | [...] | | | | | [place] [address] | | + + + + + | Valentín Saleh | ECON | [phone] | | | | | [place] [address] | | + + + + + | Roberto Carlos Lennon | LEVI | [place] | | + + + + + Care Team Providers + +------+ + | Care Production Operations Manager Name | Role | Phone | + +------+ + PCP | Unavailable | + +------+ + Encounter Details +--------+ + + + + | Date | Type | Department | Care Team | Description | +--------+ + + + + | 03/04/ | Hospital | [facility] | Francois Pascal, | | | 2008 | Encounter | MED CTR XRAY [address] | [address] | | | | | [place] | [address] [place], | | | | | [place] [address] | [place] [address] | | | | | [phone] | [phone] | | | | | | | [...]
--- OUTSIDE RECORDS SUMMARY | ~2019-07-24 | XMS | Encounter Summary ---
Demographics + + + | Address | [address] | | | [place] [address] | + + + | Home Phone [...] | Author | [facility] | | | and [place] | + + + | Organization | [facility] | [...] | | | | | [place] [address] | | + + + + + | Valentín Saleh | ECON | [phone] | | | | | [place] [address] | | + + + + + | Roberto Carlos Lennon | LEVI | Unknown | | + + + + + Care Team Providers + +------+ + | Care Needle Board Repairer Name | Role | Phone | [...] | 06/25/ | Refill | [facility] | Francois Pascal, | Medication Refill | | 2013 | | MEDICINE [facility] [address] | [address] | | | | | [facility] | [address], | | | | | [place] [address] | [place] [address] | | | | | [phone] | [phone] | | | | | | | [...]
--- OUTSIDE RECORDS SUMMARY | ~2019-07-24 | XMS | Encounter Summary ---
Demographics + + + | Address | [address] | | | [place] [address] | + + + | Home Phone [...] | Author | [facility] | | | and [place] | + + + | Organization | [facility] | | | and [place] | + + + | Address | Unknown | + + + | Phone | Unavailable | + + + Support + + + + + | Name | Relationship | Address | Phone | + + + + + | Sigrid Lennon | ECON | [address] | | | | | [place] [address] | | + + + + + | Valentín Saleh | ECON | [phone] | | | | | [place] [address] | | + + + + + | Roberto Carlos Lennon | LEVI | Unknown | | + + + + + Care Team Providers + +------+ + | Care Grinder Needle Tip Name | Role | Phone | + +------+ + | Francois Pascal MD | PCP | | + +------+ + Reason for Visit + + + | Reason | Comments | + + + | Pharmacy / Med | | + + + | SNF Discharge | | + + + Encounter Details +--------+ + + + + | Date | Type | Department | Care Team | Description | +--------+ + + + + | 10/20/ | Telephone | [facility] | Francois Pascal, | Pharmacy / Med; SNF | | 2019 | | MEDIC[facility] [place] | [address] | Discharge | | | | [address] | [address], | | | | | [place] | [place] [address] | | | | | [address] | [phone] | | | | | [phone] | | | +--------+ + + + [...]
--- OUTSIDE RECORDS SUMMARY | ~2019-07-24 | XMS | Encounter Summary ---
Demographics + + + | Address | [address] | | | [place] [address] | + + + | Home Phone [...] Author | [facility] | | | and [place] | + + + | Organization | [facility] | | | [...] | | | | | [place] [address] | | + + + + + | Valentín Saleh | ECON | [phone] | | | | | [place] [address] | | + + + + + | Roberto Carlos Lennon | LEVI | [place] | | + + + + + Care Team Providers + +------+ + | Care Senior Ui Ux Designer Name | Role | Phone | + +------+ + PCP | Unavailable | + +------+ + Encounter Details +--------+ + + + + | Date | Type | Department | Care Team | Description | +--------+ + + + + | 06/09/ | Hospital | [facility] | | | | 2006 | Encounter | MED CTR LABORATORY | | | | | | [address] | | | | | | [place] | | | | | | [address] | | | | | | [phone] | | | +--------+ + + + [...]
--- OUTSIDE RECORDS SUMMARY | ~2019-07-24 | XMS | Encounter Summary ---
Demographics + + + | Address | [address] | | | [place] [address] | + + + | Home Phone [...] Author | [facility] | | | and [place] | + + + | Organization | [facility] | | [...] | | | | | [place] [address] | | + + + + + | Valentín Saleh | ECON | [phone] | | | | | [place] [address] | | + + + + + [...] Follow-up | | + + + | Hypertension | | + + + | Carotid Artery | | | Disease | | + + + | Hyperlipidemia | | + + + Encounter Details +--------+---------+ + + + | Date | Type | Department | Care Team | Description | +--------+---------+ + + + | 02/01/ | Office | [facility] | [place], | Hyperlipidemia, | | 2017 | Visit | CARDIOLOGY [address] | [address] | mixed (Primary Dx); | | | | [place], | [place], | Stenosis of carotid | | | | [place] [address] | [place] [address] | artery, unspecified | | | | [phone] | [phone] | laterality; | | | | | | Hypertriglyceridemia | | | | | | ; Coronary artery | | | | | | disease involving | | | | | | samish coronary | | | | | | artery of samish | | | | | | heart without angina | | | | | | pectoris; | | | | | | Congestive heart | | | | | | failure, unspecified | | | | | | congestive heart | | | | | | failure chronicity, | | | | | | unspecified | | | | | | congestive heart | | | | | | failure type (HCC); | | | | | | Atrial fibrillation, | | | | | | unspecified type | | | | | | (HCC); Essential | | | | | | hypertension with | | | | | | goal blood pressure | | | | | | less than 130/80; | | | | | | SOB (shortness of | | | | | | breath) | +--------+---------+ + + + Social History [...] + + + | Blood Pressure | 140/60 | 02/01/2017 12:32 PM | | | | | PST | | + + + + + | Pulse | 62 | 02/01/2017 12:32 PM | | | | | PST | | + + + + + | Temperature | - | - | | + + + + + | Respiratory Rate | 12 | 02/01/2017 12:32 PM | | | | | PST | | + + + + + | Oxygen Saturation | - | - | | + + + + + | Inhaled Oxygen | - | - | | | Concentration | | | | + + + + + | Weight | 69.3 kg (152 lb 11.2 | 02/01/2017 12:32 PM | | | | oz) | PST | | + + + + + | Height | 167.6 cm (5' 6") | 02/01/2017 12:32 PM | | | | | PST | | + + + + + | Body Mass Index | 24.65 | 02/01/2017 12:32 PM | | | [...] documented as of this encounter Progress Notes Cahrla Lynn ARNP - 02/01/2017 12:45 PM PSTFormatting of this note might be differen t from the original. PATIENT NAME: Alyson Lennon : 1930: AGE: 86 y.o. PRIMARY CARE: Francois Pascal MD OUTPATIENT FOLLOW UP VISIT Date of Service: 02/01/2017 HISTORY OF PRESENT ILLNESS: Alyson Lennon is a 86 y.o. female with a history of coronary artery disease, atrial fibri llation, essential hypertension, mixed hyperlipidemia, and type 2 diabetes, stage III chroni c kidney disease. She was last seen 06/03/16 at which time she was to undergo surgery and [facility] procedure or sooner if any concerns. Since that time, she underwent ankle surgery but then complicated with a hip fracture also had been prepared and since then she had to move into an assisted living because she was req uiring more help for her daily activities. Her dementia also has worsened since her overall status has decline. She has had a poor energy level. She has not been very active. She has been walking with assistance at the SNF for 30 - 50 feet. She has not had any chest pain o r discomfort at rest or with exertion. She has not noticed shortness of breath. She has n ot had any lightheadedness or dizziness. She has not noticed palpitations. She has not had leg swelling. She sleeps on 1 pillow at night without any shortness of breath. She has no cardiac complaints. Her is here with her in offers no other things they are concer marycruz with her. MEDICAL, SURGICAL, AND PERSONAL HISTORY Past Medical, Surgical, Family, and Social History are reviewed in EPIC. CURRENT PROBLEMS Patient Active Problem List Diagnosis CAROTID STENOSIS AMAUROSIS FUGAX DEMYELINATING DISEASE, CENTRAL NERVOUS SYSTEM FRACTURE, ANKLE, LEFT Gout, unspecified OSTEOARTHRITIS, ANKLE, LEFT FATIGUE VIRAL URI HYPERTRIGLYCERIDEMIA VITAMIN D DEFICIENCY Hypertension, renal disease DM type 2, uncontrolled, with renal complications Glossitis Coronary artery disease involving samish coronary artery of samish heart without angina pectoris Hyperlipidemia, mixed AMI [...] rectally Daily as needed for Constipation. 0 Psphiyi-Qxzbhyxui-Gmxzgly D (CALCIUM 500 PO) Take 1 capsule [...] mLs rectally Daily as needed for Constipation. No current facility-administered medications for this visit. ALLERGIES Allergies Allergen Reactions Codeine Sulfate Nausea And Vomiting Darvon Nausea Only Estrogens Patient can't remember Pneumococcal Vaccines Other (See Comments) Thinks it was a Prevnar, arm became red/sore/swollen ROS Review of Systems Constitutional: Negative for malaise/fatigue. HENT: Negative for nosebleeds. Respiratory: Negative for cough and shortness of breath. Cardiovascular: Positive for orthopnea, claudication and leg swelling. Negative for chest p ain and palpitations. Neurological: Negative for dizziness, tingling, tremors, weakness and headaches. OBJECTIVE: PHYSICAL EXAM BP 140/60 | Pulse 62 | Resp 12 | Ht 1.676 m (5' 6") | Wt 69.3 kg (152 lb 11.2 oz) | BM I 24.65 kg/m Physical Exam Constitutional: She is oriented [...] performed during the hospital encounter of 07/10/16 ECG 12 lead Result Value Ref Range INTERPRETATION TEXT Atrial fibrillation Left axis deviation with left anterior hemiblock Right bundle branch block Inferior infarct (cited on or before 21-MAR-2015) Anterior infarct , age undetermined T wave abnormality, consider lateral ischemia Abnormal ECG When compared with ECG of 10-JUL-2016 08:55, Atrial fibrillation has replaced Sinus rhythm Anterior infarct is now present Nonspecific T wave abnormality, worse in Inferior leads Confirmed by LUCINA ALAMO, ROSALBA ([id number]) on 07/13/2016 7:24:19 AM LAB RESULTS reviewed during visit today primarily from [facility]: LIPID Lab Results Component Value Date CHOL 136 (L) 05/27/2016 TRIG 208 (H) 05/27/2016 HDL 35 05/27/2016 LDL 59 05/27/2016 CHOLHDL 3.9 05/27/2016 CHEMISTRY Lab Results Component Value Date GLU 304 (H) 10/04/2016 NA 135 (L) 10/04/2016 K 4.5 10/04/2016 CL 99 10/04/2016 CO2 28 10/04/2016 CALCIUM 8.9 10/04/2016 ALKPHOS 71 09/03/2016 AST 17 09/03/2016 ALT 13 09/03/2016 BILITOT 0.5 09/03/2016 CREA 0.82 10/04/2016 BUN 21 (H) 10/04/2016 EGFR 40 (L) 02/26/2013 HEMATOLOGY Lab Results Component Value Date WBC 14.3 (H) 07/12/2016 HGB 12.3 07/13/2016 HCT 35.9 07/13/2016 PLT 157 07/12/2016 I reviewed records from PCP for office visit on 11/21 Dementia and dermatitis. Above data and testing is reviewed this visit; testing below is historical data unless othe rwise specified. ASSESSMENT: 1. Extensive history of coronary artery disease involving samish coronary artery of samish heart without angina pectoris: A. Status post [...] Today, patient is doing well from cardiac standpoint and she remains asymptomatic. Kennedi ent is asymptomatic but not physically active due deconditioning and muscle skeletal issues. Her physical activity has been slowing down because of her ankle.There is no signs and sym ptoms of overt congestive heart failure. Patient is in a class [employer] of [place] [employer] on functional class. Physical exam shows trace trace edema to her left foot and ankle from h er old fractured ankle. 3. Hyperlipidemia, mixed: A. She is on atorvastatin 4. Essential hypertension with goal blood pressure less than 130/80: A. Today blood pressure is well controlled. 5. Stage III chronic kidney disease suspecting diabetic nephropathy A. This has been stable and improved. 6. Diabetes. A. on insulin. 6. Obesity and Inactivity PLAN: 1. The current medical regimen is effective; continue present plan and medications. 2. She will follow up in 6 months, or sooner with concerns. Portions of this chart may have been created with [employer] voice recognition software. Occasi onal wrong-word or sound-alike substitutions may have occurred due to the inherent greene itations of voice recognition software. Please read the chart carefully and recognize, using context, where these substitutions have occurred. documented in th is encounter Plan of Treatment Not on filedocumented as of this encounter Visit Diagnoses + + | Diagnosis | + + | Hyperlipidemia, mixed - Primary Mixed hyperlipidemia | + + | Stenosis of carotid artery, unspecified laterality | + + | Hypertriglyceridemia Pure hyperglyceridemia | + + | Coronary artery disease involving samish coronary artery of samish heart without | | angina pectoris | + + | Congestive heart failure, unspecified congestive heart failure chronicity, unspecified | | congestive heart failure type | + + | Atrial fibrillation, unspecified type (HCC) | + + | Essential hypertension with goal blood pressure less than 130/80 | + + | SOB (shortness of breath) Shortness of breath | + + documented in this encounter
--- OUTSIDE RECORDS SUMMARY | ~2019-07-24 | XMS | Encounter Summary ---
Demographics + + + | Address | [address] | | | [place] [address] | + + + | Home Phone [...] | Author | [facility] | | | and [place] | + + + | Organization | [facility] | | | [...] | | | | | [place] [address] | | + + + + + | Valentín Saleh | ECON | [address] | | | | | [place] [address] | | + + + + + | Roberto Carlos Lennon | LEVI | [place] | | + + + + + Care Team Providers + +------+ + | Care Lettuce Cutter Name | Role | Phone | + +------+ + PCP | Unavailable | + +------+ + Encounter Details +--------+ + + + + | Date | Type | Department | Care Team | Description | +--------+ + + + + | 01/20/ | Hospital | [facility] | Francois Pascal, | | | 2009 | Encounter | MED CTR LABORATORY | [address] | | | | | [address] [place] | [address], | | | | | [place] | [place] [address] | | | | | [address] | [phone] | | | | | [phone] | | | +--------+ + + + [...]
--- OUTSIDE RECORDS SUMMARY | ~2019-07-24 | XMS | Encounter Summary ---
Demographics + + + | Address | [address] | | | [place] [address] | + + + | Home Phone [...] + | Author | [facility] | | | and [place] | + + + | Organization | [facility] | [...] | | | | | [place] [address] | | + + + + + | Valentín Saleh | ECON | [phone] | | | | | [place] [address] | | + + + + + | Roberto Carlos Lennon | LEVI | [place] | | + + + + + Care Team Providers + +------+ + | Care Mechanical Maintenance Instructor Name | Role | Phone | + +------+ + PCP | Unavailable | + +------+ + Encounter Details +--------+ + + + + | Date | Type | Department | Care Team | Description | +--------+ + + + + | 12/13/ | Hospital | [facility] | | | | 1994 | Encounter | MED CTR EMERGENCY | | | | | | CENTER [address] | | | | | | [place] | | | | | | [address] | | | | | | [phone] | | | +--------+ + + + [...]
--- OUTSIDE RECORDS SUMMARY | ~2019-07-24 | XMS | Encounter Summary ---
Demographics + + + | Address | [address] | | | [place] [address] | + + + | Home Phone [...] + | Author | [facility] | | | and [place] | + + + | Organization | [facility] | | | and [...] | | | | | [place] [address] | | + + + + + | Valentín Saleh | ECON | [address] | | | | | [place] [address] | | + + + + + | Roberto Carlos Lennon | LEVI | Unknown | | + + + + + Care Team Providers + +------+ + | Care National Expansion Recruiter Name | Role | Phone | + +------+ + | Francois Pascal MD | PCP | | + +------+ + Reason for Visit +---------+ + | Reason | Comments | +---------+ + | Illness | | +---------+ + Encounter Details +--------+ + + + + | Date | Type | Department | Care Team | Description | +--------+ + + + + | 11/13/ | Telephone | [facility] | Francois Pascal, | Illness | | 2014 | | MEDICINE [address] | [address] | | | | | [facility] | [address], | | | | | [place] [address] | [place] [address] | | | | | [phone] | [phone] | | | | | | | [...]
--- OUTSIDE RECORDS SUMMARY | ~2019-07-24 | XMS | Encounter Summary ---
Demographics + + + | Address | [address] | | | [place] [address] | + + + | Home Phone [...] Author | [facility] | | | and [place] | + + + | Organization | [facility] | [...] | | | | | [place] [address] | | + + + + + | Valentín Saleh | ECON | [phone] | | | | | [place] [address] | | + + + + + | Roberto Carlos Lennon | LEVI | [place] | | + + + + + Care Team Providers + +------+ + | Care Radiology Supervisor Name | Role | Phone | + +------+ + PCP | Unavailable | + +------+ + Encounter Details +--------+ + + + + | Date | Type | Department | Care Team | Description | +--------+ + + + + | 07/31/ | Hospital | [facility] | | | | 2004 | Encounter | MED CTR LABORATORY | | | | | | [address] | | | | | | [place] | | | | | | [address] | | | | | | [phone] | | | +--------+ + + + [...]
--- OUTSIDE RECORDS SUMMARY | ~2019-07-24 | XMS | Encounter Summary ---
Demographics + + + | Address | [address] | | | [place] [address] | + + + | Home Phone [...] Author | [facility] | | | and [place] | + + + | Organization | [facility] | [...] | | | | | [place] [address] | | + + + + + | Valentín Saleh | ECON | [address] | | | | | [place] [address] | | + + + + + | Roberto Carlos Lennon | LEVI | Unknown | | + + + + + Care Team Providers + +------+ + | Care Senior Quality Technician Name | Role | Phone | [...] | 11/14/ | Telephone | [facility] | Francois Pascal, | Illness | | 2014 | | MEDICINE [address] | [address] | | | | | [facility] | [address], | | | | | [place] [address] | [place] [address] | | | | | [phone] | [phone] | | | | | | | [...]
--- OUTSIDE RECORDS SUMMARY | ~2019-07-24 | XMS | Encounter Summary ---
Demographics + + + | Address | [address] | | | [place] [address] | + + + | Home Phone [...] | | | | | [place] [address] | | + + + + + | Valentín Saleh | ECON | [phone] | | | | | [place] [address] | | + + + + + | Roberto Carlos Lennon | LEVI | Unknown | | + + + + + Care Team Providers + +------+ + | Care Income Tax Investigator Name | Role | Phone [...] | 01/24/ | Refill | [facility] [place] [facility] | Francois Pascal, | Medication Refill | | 2013 | | MEDICINE [facility] [address] | [address] | | | | | [facility] | [address], | | | | | [place] [address] | [place] [address] | | | | | [phone] | [phone] | | | | | | | [...]
--- OUTSIDE RECORDS SUMMARY | ~2019-07-24 | XMS | Encounter Summary ---
Demographics + + + | Address | [address] | | | [place] [address] | + + + | Home Phone [...] | Author | [facility] | | | and [place] | + + + | Organization | [facility] | | | and [place] | + + + | Address | Unknown | + + + | Phone | Unavailable | + + + Support + + + + + | Name | Relationship | Address | Phone | + + + + + | Sigrid Lennon | ECON | [address] | | | | | [place] [address] | | + + + + + | Valentín Saleh | ECON | [address] | | | | | [place] [address] | | + + + + + | Roberto Carlos Lennon | LEVI | Unknown | | + + + + + Care Team Providers + +------+ + | Care Pathology Laboratory Aide Name | Role | Phone | [...] + + | 02/16/ | Office | [facility] | Francois Pascal, | Dyslipidemia | | 2016 | Visit | MEDICINE [address] | [address] | (Primary Dx); | | | | Street [facility] | [address], | Primary | | | | [place] [address] | [place] [address] | osteoarthritis of | | | | [phone] | [phone] | left ankle; Diabetes | | | [...] replacement. She is now seeing Dr Ochoa, [place] [facility] rthopedics. DM2, with neuropathy, There is no [...] Hiatal Hernia Repair 1984 (L) Breast Biopsy 1975 ORIF Left Ankle Unstable Trimalleolar Fracture Dislocation 03/24/2009 Family History: Mother 71 Myocardial Infarction, possible VSD Father 50 Pneumonia Family Hx of Williamson's chorea Sister and 2 brothers: CAD, Airam's Disease to [place] - with 2 Healthy Children No kidney disease in family. Social History: Born in [facility] for 46 years. and Remarried [...] not heard from Dr Ochoa regarding her [facility] [place] ankle replacement. Labs were reviewed with the pt today and are acceptable. RTC clarke hs with labs prior. Lipitor trail. Otherwise continue current medical regimen. documented in this encounter Plan of Treatment Not on filedocumented as of this encounter Results Lipid Panel [...] | Reference Range as of | | [facility] | | | | November 14, [...] ST. | [address] | [place], [place] | [phone] | | [facility] | | [address] | | | - LABORATORY | | [...] + | [facility] | [address] | [place] | [phone] | | [facility] | | [address] | | | - LABORATORY | | [...] + | [facility] | [address] | [place] | [phone] | | [facility] | | [address] | | | - LABORATORY | | [...] | 1.05 | 0.60 - 1.30 | [facility] | | | | | mg/dL | [facility] | | | | | | MEDICAL | | | | | | CENTER - | | | | | | LABORATORY | | + + + + + + | eGFR if not | 50 (L)Comment: | >=60 | [facility] | | | | GLOMERULAR FILTRATION | mL/min/1.73m2 | [facility] | | | [place]IAN | RATE,ESTIMATED | | MEDICAL | | | | mL/min/1.42i2Vudb than | | CENTER - | | [...] | 9.5 | 8.3 - 10.5 | [facility] | | | | | mg/dL | [...] [address] | [place] | [phone] | | [facility] | | [address] | | | - LABORATORY | | [...]
--- OUTSIDE RECORDS SUMMARY | ~2019-07-24 | XMS | Encounter Summary ---
Demographics + + + | Address | [address] | | | [place] [address] | + + + | Home Phone [...] | Author | [facility] | | | and [place] | + + + | Organization | [facility] | | [...] | | | | | [place] [address] | | + + + + + | Valentín Saleh | ECON | [address] | | | | | [place] [address] | | + + + + + | Roberto Carlos Lennon | LEVI | Unknown | | + + + + + Care Team Providers + +------+ + | Care Speech Professor Name | Role | Phone | [...] Refill | | 2019 | | MEDICINE [place] | [address] | | | | | [address] | [address], | | | | | [place] | [place] [address] | | | | | [address] | [phone] | | | | | [phone] | | | +--------+--------+ + + + [...]
--- OUTSIDE RECORDS SUMMARY | ~2019-07-24 | XMS | Encounter Summary ---
Demographics + + + | Address | [address] | | | [place] [address] | + + + | Home Phone [...] Author | [facility] | | | and [place] | + + + | Organization | [facility] | [...] | | | | | [place] [address] | | + + + + + | Valentín Saleh | ECON | [address] | | | | | [place] [address] | | + + + + + | Roberto Carlos Lennon | LEVI | Unknown | | + + + + + Care Team Providers + +------+ + | Care County Superintendent Of Schools Name | Role | Phone | + [...] Description | +--------+--------+ + + + | 03/01/ | Refill | [facility] | Misael [place]nes, | Medication Refill | | 2013 | | MEDICINE [place] | [address] | | | | | [address] | [place] | | | | | [place] | [address] | | | | | [address] | | | | | | [phone] | | | +--------+--------+ + + + [...]
--- OUTSIDE RECORDS SUMMARY | ~2019-07-24 | XMS | Encounter Summary ---
Demographics + + + | Address | [address] | | | [place] [address] | + + + | Home Phone [...] | Author | [facility] | | | and [place] | + + + | Organization | [facility] | | | and [...] | | | | | [place] [address] | | + + + + + | Valentín Saleh | ECON | [address] | | | | | [place] [address] | | + + + + + | Roberto Carlos Lennon | LEVI | Unknown | | + + + + + Care Team Providers + +------+ + | Care Disk Operator Name | Role | Phone | [...] | instability | [address] | [place] | | | | n | [address] | [place], | | | | | (ICD-10-CM) | [facility] | [place] [address] | | | | | - [address] | [place], [place] | Phone: | | | | | (ICD-9-CM) - | [address] | [phone] | | | | | Gait | Phone: | Fax: | | | | | instability | [phone] | [phone] | | | | | Procedures | Fax: | | | | | | pt eval | [phone] | | +--------+ + + + + + Reason for Visit +---------+ + | Reason | Comments | +---------+ + | Results | MRI | +---------+ + Encounter Details +--------+---------+ + + + | Date | Type | Department | Care Team | Description | +--------+---------+ + + + | 12/09/ | Office | [facility] | Francois Pascal, | Type 2 diabetes | | 2014 | Visit | MEDICINE [address] | [address] | mellitus with other | | | | Street [place] | [address] [place], | diabetic kidney | | | | [place] [address] | [place] [address] | complication (HCC) | | | | [phone] | [phone] | (Primary Dx); Gait | | | | | | instability; | | | | | | Bilateral carotid | | | | | | artery stenosis; | | | | | | Cystitis | +--------+---------+ + + + Social History [...] + | Blood Pressure | 118/60 | 12/09/2014 9:56 AM | | | | | PDT | | + + + + + | Pulse | 74 | 12/09/2014 9:56 AM | | | | | PDT | | + + + + + | Temperature | 36.2 C (97.2 F) | 12/09/2014 9:56 AM | | | | | PDT | | + + + + + | Respiratory Rate | 14 | 12/09/2014 9:56 AM | | | | | PDT | | + + + + + | Oxygen Saturation | 97% | 12/09/2014 9:56 AM | | | | | PDT | | + + + + + | Inhaled Oxygen | - | - | | | Concentration | | | | + + + + + | Weight | 73 kg (161 lb) | 12/09/2014 9:56 AM | | | | | PDT | | + + + + + | Height | 157.5 cm (5' 2") | 12/09/2014 9:56 AM | | | | | PDT | | + + + + + | Body Mass Index | 29.45 | 12/09/2014 9:56 AM | | | | | PDT | | + + + + + documented in this encounter Progress Notes Francois Pascal MD - 12/09/2014 9:58 AM PDTFormatting of this note might be different f rom the original. Subjective: Patient ID: Alyson Lennon is a 83 y.o. female. HPI Cerebral contusion, New Carotid Stenosis, She is on baby aspirin daily, one month ago, post fall, She uses a walker and cane, In general she feels a lot weaker than she did a year ag o. She can't stand and do things for more than an hour. post contusion Confusion has re solved, with recent ER visit, dx of Hyponatremia, Dehydration with acute on chronic RF, She does desire PT for this. CKD, she drinks 6 glasses of water daily, She avoids all NSAIDS except for tylenol. She s ees Chelane Hananethal today. Cystitis, Bladder wall thickening on recent CT, She reports no history of blood in the ur ine and she was never a smoker. Riri her and her think she is still a lot less confused. She is stil fatigued most of the time. She has no PERSAUD. HTN, Recent BP's have been running in the 120/60 range. There is no longer any SOB or diff iculty getting a deep breath. There has been no chest pain. Past Medical History: Reviewed history from 06/24/2011 [...] VSD Father 50 Pneumonia Family Hx of Redmond's chorea Sister and 2 brothers: CAD, Redmond's Disease to [place] - with 2 Healthy Children No kidney disease in family. Social History: Reviewed history from 08/11/2011 and no changes required: Born in [facility] for [facility] years. and Remarried 2 sons local. Patient has never smoked. Alcohol Use - no Exercise: None Caffeine: Decaf only Living Situation: Lives with spuse Review of Systems Constitutional: no fever, No appetite change, some fatigue. HEENT: Neg ear pain, No nosebleeds,no [...] no Strange moles Neurological: Neg for dizziness, some Weakness, no light-headedness, no numbness and no headaches. Some gait instability Hematological: Neg for adenopathy. Does not bruise/bleed [...] Assessment: 1. Type 2 diabetes mellitus with other diabetic kidney complication (HCC) Urinalysis with Microscopic if Indicated Hemoglobin A1C 2. Gait instability * [facility] - AMB Referral 3. Bilateral carotid artery stenosis 4. Cystitis Plan: Refer to PT, RTC 1 month with UA prior. Otherwise continue current medical regimen. Discussed recent MRI angio with the patient. There is signif stenosis but not critical. W ill repeat this study in a year. documented in this encounter Plan of [...] - 1.030 | [facility] | | | [place], | | | [facility] | | [...] DIAZ. | [address] | [place] | [phone] | | [facility] | | [address] | | | - LABORATORY | | | | + + + + + documented in this encounter Visit Diagnoses + + | Diagnosis | + + | Type 2 diabetes mellitus with other diabetic kidney complication (HCC) - Primary | + + | Gait instability Abnormality of gait | + + | Bilateral carotid artery stenosis Occlusion and stenosis of multiple and bilateral | | precerebral arteries without mention of cerebral infarction | + + | Cystitis Cystitis, unspecified | + + documented in this encounter
--- OUTSIDE RECORDS SUMMARY | ~2019-07-24 | XMS | Encounter Summary ---
Demographics + + + | Address | [address] | | | [place] [address] | + + + | Home Phone [...] + | Author | [facility] | | | and [place] | + + + | Organization | [facility] | [...] | | | | | [place] [address] | | + + + + + | Valentín Saleh | ECON | [address] | | | | | [place] [address] | | + + + + + | Roberto Carlos Lennon | LEVI | [place] | | + + + + + Care Team Providers + +------+ + | Care Flight Communications Officer Name | Role | Phone | + +------+ + PCP | Unavailable | + +------+ + Encounter Details +--------+ + + + + | Date | Type | Department | Care Team | Description | +--------+ + + + + | 05/06/ | Hospital | [facility] | Stephenie Paul, | | | 2010 | Encounter | MED CTR LABORATORY | [address] | | | | | [address] [place] | [facility], | | | | | [place], [place] | [place] [address] | | | | | [address] | [phone] | | | | | [phone] | | | +--------+ + + + [...] + | [facility] | [address] | [place], [place] | [phone] | | [facility] | | [address] | | | - LABORATORY | | | | + + + + + | [facility] | [address] | [place], [place] | | | [facility] | | [address], [facility] | | | - LABORATORY [...] | | | | | | [facility] | | | | | | MEDICAL [...] [address] | [place] | [phone] | | [facility] | | [address] | | | - LABORATORY | | | | + + + + + | [facility] | [address] | [place] | | | [facility] | | [address], [facility] | | | - LABORATORY [...] 38 (L)Comment: For | >60 mL/min/A | [address] | [place] | [phone] | | [facility] | | [address] | | | - LABORATORY | | | | + + + + + | [facility] [facility] | [address] | [place] | | | [facility] | | [address] | | | - LABORATORY | | | | + + + + + documented in this encounter Visit Diagnoses Not on filedocumented in this encounter"
--- OUTSIDE RECORDS SUMMARY | ~2019-07-24 | XMS | Encounter Summary ---
Demographics + + + | Address | [address] | | | [place] [address] | + + + | Home Phone [...] Author | [facility] | | | and [place] | + + + | Organization | [facility] | | | [...] | | | | | [place] [address] | | + + + + + | Valentín Saleh | ECON | [address] | | | | | [place] [address] | | + + + + + | Roberto Carlos Lennon | LEVI | Unknown | | + + + + + Care Team Providers + +------+ + | Care Ndt Inspector Name | Role | Phone | [...] | | | | | left | [facility] | [facility] | | | | | | [facility], [place] | [place], [place] | | | | | | [address] | [address] Phone: | | | | | | Phone: | [phone] | | | | | | [phone] | Fax: | | | | | | Fax: | [phone] | | | | | | [phone] | | +--------+ + + + + + Reason for Visit + + + | Reason | Comments | + + + | Diabetes | | + + + Encounter Details +--------+---------+ + + + | Date | Type | Department | Care Team | Description | +--------+---------+ + + + | 06/18/ | Office | [facility] | Francois Pascal, | HYPERTENSION NEC | | 2014 | Visit | MEDICINE [address] | [address] | (Primary Dx); | | | | Street [facility] | [address] [place], | Hyperlipidemia; DM | | | | [place] [address] | [place] [address] | (diabetes mellitus); | | | | [phone] | [phone] | CHRONIC KIDNEY | | | | [...] + documented in this encounter Progress Notes Morasch, Francois G, MD - 06/18/2013 11:13 AM PDTFormatting of [...] is still occa sionally sore. 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 CKD, She urinates normally. There is no [...] hard to walk. Would like to try th erapy again soon. Past Medical History: Reviewed history [...] Airam's chorea Sister and 2 brothers: CAD, Seward's Disease to [place] - with 2 Healthy Children No kidney disease in family. Social History: Reviewed history from 08/11/2011 and no changes required: Born in [facility] for 46 years. and Remarried 2 [...] VSD Father 50 Pneumonia Family Hx of Seward's chorea Sister and 2 brothers: CAD, Airam's Disease to [place] - with 2 Healthy Children No kidney disease in family. Social History: Reviewed history from 08/11/2011 and no changes required: Born in [facility] for 46 years. and Remarried 2 [...] + | [facility] | [address] | [place], [place] | [phone] | | [facility] | | [address] | | | - LABORATORY | | | | + + + + + | [facility] | [address] | [place], [place] | | | [facility] | | [address] [place] [address] | | | - LABORATORY | | [...]
--- OUTSIDE RECORDS SUMMARY | ~2019-07-24 | XMS | Encounter Summary ---
Demographics + + + | Address | [address] | | | [place] [address] | + + + | Home Phone [...] | Author | [facility] | | | and [place] | + + + | Organization | [facility] | | [...] | | | | | [place] [address] | | + + + + + | Valentín Saleh | ECON | [address] | | | | | [place] [address] | | + + + + + | Roberto Carlos Lennon | LEVI | Unknown | | + + + + + Care Team Providers + +------+ + | Care Records Supervisor Name | Role | Phone | [...] + + | 06/28/ | Office | [facility] | Francois Pascal, | CHRONIC KIDNEY | | 2012 | Visit | MEDICINE [place] | [address] | DISEASE STAGE III | | | | [address] | [address] [place], | (MODERATE) (Primary | | | | [place] | [place] [address] | Dx); DM (diabetes | | | | [address] | [phone] | mellitus) ([facility]); | | | | [phone] | | Hyperlipidemia; | | | | [...] and 2 brothers: CAD, Airam's Disease to [place] - with 2 Healthy Children No kidney disease in family. Social History: Reviewed history from 08/11/2011 and no changes required: Born in [facility] for 47 [...] | + + | DM (diabetes mellitus) ([facility]) Type II or unspecified type [...]
--- OUTSIDE RECORDS SUMMARY | ~2019-07-24 | XMS | Encounter Summary ---
Demographics + + + | Address | [address] | | | [place] [address] | + + + | Home Phone [...] + | Author | [facility] | | | and [place] | + + + | Organization | [facility] | | [...] | | | | | [place] [address] | | + + + + + | Valentín Saleh | ECON | [address] | | | | | [place] [address] | | + + + + + | Roberto Carlos Lennon | LEVI | Unknown | | + + + + + Care Team Providers + +------+ + | Care Creative Services Director Name | Role | Phone | + +------+ + | Francois Pascal MD | PCP | | + +------+ + Encounter Details +--------+ + + + + | Date | Type | Department | Care Team | Description | +--------+ + + + + | 04/14/ | Hospital | [facility] | Francois Pascal, | Essential | | 2016 | Encounter | MED CTR LABORATORY | [address] | hypertension; | | | | [address] [place] | [address] [place], | Diabetes mellitus | | | | [place], [place] | [place] [address] | due to underlying | | | | [address] | [phone] | condition with | | | | [phone] | | diabetic nephropathy | | | [...] | | | | | | hyperglycemia ([facility]) | | | | [...] - 1.030 | [facility] | | | [place], | | | [facility] | | [...] | | Urine | | | [facility] | | [address] | [place] | [phone] | | [facility] | | [address] | | | - LABORATORY | | [...] | [facility] | [address] | [place] | [phone] | | [facility] | | [address] | | | - LABORATORY | | | | + + + + + CBC with Differential (04/14/2015 8:40 AM PST) + + + + + + | Component | Value | Ref Range | Performed | Pathologist | | | | | At | Signature | + + + + + + | WBC | 10.2 | 4.0 - 11.0 K/uL | [facility] | | | | | | [facility] | | | | | | MEDICAL | | | | | | CENTER - | | | | | | LABORATORY | | + + + + + + | RBC | 4.14 | 3.70 - 5.20 | [facility] | | | | | M/uL | [facility] | | | | [...] | | | Neutrophils | | | [facility] | | [...] [address] | [place] | [phone] | | [facility] | | [address] | | | - LABORATORY | | [...] | mL/min/1.73m2 | [facility] | | | [place] | RATE,ESTIMATED | | MEDICAL | | | | mL/min/1.66r3Fwrn than | | CENTER - | | [...] [address] | [place] | [phone] | | [facility] | | [address] | | | - LABORATORY | | [...]
--- OUTSIDE RECORDS SUMMARY | ~2019-07-24 | XMS | Encounter Summary ---
Demographics + + + | Address | [address] | | | [place] [address] | + + + | Home Phone [...] | Author | [facility] | | | and [place] | + + + | Organization | [facility] | [...] | | | | | [place] [address] | | + + + + + | Valentín Saleh | ECON | [address] | | | | | [place] [address] | | + + + + + | Roberto Carlos Lennon | LEVI | Unknown | | + + + + + Care Team Providers + +------+ + | Care Mushroom Growing Supervisor Name | Role | Phone | [...] | 09/30/ | Refill | [facility] | Francois Pascal, | Medication Refill | | 2014 | | MEDICINE [place] | [address] | | | | | [address] | [address], | | | | | [place] | [place] [address] | | | | | [address] | [phone] | | | | | [phone] | | | +--------+--------+ + + + [...]
--- OUTSIDE RECORDS SUMMARY | ~2019-07-24 | XMS | Encounter Summary ---
Demographics + + + | Address | [address] | | | [place] [address] | + + + | Home Phone [...] + | Author | [facility] | | | and [place] | + + + | Organization | [facility] | [...] | | | | | [place] [address] | | + + + + + | Valentín Saleh | ECON | [address] | | | | | [place] [address] | | + + + + + | Roberto Carlos Lennon | LEVI | Unknown | | + + + + + Care Team Providers + +------+ + | Care Fitness Specialist Name | Role | Phone | [...] Left ankle | [place], | [address] | | | | | pain | Glenn Richards MD | [place], | | | | | Procedures | [address] | [place] | | | | | [place] | [facility] | [address] | | | | | [place] | [place], [place] | Phone: | | | | | [place] | [address] | [phone] | | | | | ASPIR&/INJ | Phone: | Fax: | | | | | INTERM | [phone] | [phone] | | | | | JT/BURS [place] | Fax: | | | | | | [place] | [phone] | | | | | | [place] [...] + + | 08/02/ | Hospital | [facility] | Glenn Miramontes | 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 | [address] | [place], [place] | [phone] | | [facility] | | [address] | | | - IMAGING | | [...] PDT | | | | | ONCE, 08/02/14 at 1015, For 1 | | | | | | | dose, Shake well. Not for IV | | | | | | | use., | | | | | | + +-------+ +-------+---+---+ +---+---+ | | | +---+---+ documented in this encounter"
--- OUTSIDE RECORDS SUMMARY | ~2019-07-24 | XMS | Encounter Summary ---
Demographics + + + | Address | [address] | | | [place] [address] | + + + | Home Phone [...] Author | [facility] | | | and [place] | + + + | Organization | [facility] [...] | | | | | [place] [address] | | + + + + + | Valentín Saleh | ECON | [address] | | | | | [place] [address] | | + + + + + | Roberto Carlos Lennon | LEVI | [place] | | + + + + + Care Team Providers + +------+ + | Care Count Room Clerk Name | Role | Phone | + +------+ + PCP | Unavailable | + +------+ + Encounter Details +--------+ + + + + | Date | Type | Department | Care Team | Description | +--------+ + + + + | 04/28/ | Hospital | [facility] | Jason Hernandez, | | | 2010 | Encounter | MED CTR XRAY [address] | PA-C [address] | | | | | [place] | [address] [place] | | | | | [place] [address] | [place] [address] | | | | | [phone] | [phone] | | | | | | | [...]
--- OUTSIDE RECORDS SUMMARY | ~2019-07-24 | XMS | Encounter Summary ---
Demographics + + + | Address | [address] | | | [place] [address] | + + + | Home Phone [...] + | Author | [facility] | | | and [place] | + + + | Organization | [facility] | [...] | | | | | [place] [address] | | + + + + + | Valentín Saleh | ECON | [id number] | | | | | [place] [address] | | + + + + + | Roberto Carlos Lennon | LEVI | Unknown | | + + + + + Care Team Providers + +------+ + | Care Chip Machine Operator Name | Role | Phone [...] Refill | | 2013 | | MEDICINE [place] | [address] | | | | | [address] | [address], | | | | | [place] | [place] [address] | | | | | [address] | [phone] | | | | | [phone] | | | +--------+--------+ + + + [...]
--- OUTSIDE RECORDS SUMMARY | ~2019-07-24 | XMS | Encounter Summary ---
Demographics + + + | Address | [address] | | | [place] [address] | + + + | Home Phone [...] Author | [facility] | | | and [place] | + + + | Organization | [facility] | [...] | | | | | [place] [address] | | + + + + + | Valentín Saleh | ECON | [phone] | | | | | [place] [address] | | + + + + + | Roberto Carlos Lennon | LEVI | Unknown | | + + + + + Care Team Providers + +------+ + | Care Mounting Machine Operator Name | Role | Phone | + +------+ + | Francois Pascal MD | PCP | | + +------+ + Reason for Visit + + + | Reason | Comments | + + + | Medication Refill | lantus | + + + Encounter Details +--------+--------+ + + + | Date | Type | Department | Care Team | Description | +--------+--------+ + + + | 01/02/ | Refill | [facility] [place] [facility] | Francois Pascal, | Medication Refill | | 2013 | | MEDICINE [facility] Sergio | [address] | (lantus) | | | | [facility] | [address] [place], | | | | | [place] [address] | [place] [address] | | | | | [phone] | [phone] | | | | | | | [...]
--- OUTSIDE RECORDS SUMMARY | ~2019-07-24 | XMS | Encounter Summary ---
Demographics + + + | Address | [address] | | | [place] [address] | + + + | Home Phone [...] Author | [facility] | | | and [place] | + + + | Organization | [facility] [...] | | | | | [place] [address] | | + + + + + | Valentín Saleh | ECON | [phone] | | | | | [place] [address] | | + + + + + | Roberto Carlos Lennon | LEVI | Unknown | | + + + + + Care Team Providers + +------+ + | Care Fuller Brush Man Name | Role | Phone | [...] | instability | [address] | [address] | | | | [address] | [address] | [place], | | | | | (ICD-10-CM) | [place] | [place] [address] | | | | | - 781.2 | [place] | Phone: | | | | | (ICD-9-CM) - | [address] | [phone] | | | | | Gait | Phone: | Fax: | | | | | instability | [phone] | [phone] | | | | | Procedures | Fax: | | | | | | pt eval | [phone] | | +--------+ + + + + + Encounter Details +--------+---------+ + + + | Date | Type | Department | Care Team | Description | +--------+---------+ + + + | 03/03/ | Office | [facility] | Francois Pascal, | Posture imbalance | | 2015 | Visit | MED CTR THERAPY PT | [address] | (Primary Dx); | | | | OP [address] | [address] [place], | Impaired functional | | | | [place] | [place] [address] | mobility, balance, | | | | [address] | [phone] | gait, and endurance; | | | | [phone] | | Left ankle pain | | | | | Kely Quinn B, PT | | | | | | [address] | | | | | | [place] | | | | | | [address] | | | | | | | [...] THERAPY PT OP [address] [address] Physical Therapy Daily Treatment Note Date: 03/03/2015 [...]
--- OUTSIDE RECORDS SUMMARY | ~2019-07-24 | XMS | Encounter Summary ---
Demographics + + + | Address | [address] | | | [place] [address] | + + + | Home Phone [...] | Author | [facility] | | | and [place] | + + + | Organization | [facility] [...] | | | | | [place] [address] | | + + + + + | Valentín Saleh | ECON | [address] | | | | | [place] [address] | | + + + + + | Roberto Carlos Lennon | LEVI | Unknown | | + + + + + Care Team Providers + +------+ + | Care Product Applications Engineer Name | Role | Phone | [...] Description | +--------+--------+ + + + | 03/10/ | Refill | [facility] | Diane Penn RN | Medication Refill | | 2012 | | MEDICINE [address] [place] [address] | | | | | | [place] | | | | | | [place] [address] | | | | | | [phone] | | | +--------+--------+ + + + [...] on filedocumented as of this encounter Results TRE w/ Dejuan (03/14/2012 9:32 AM PST) + + + [...] | | | | M/uL | [facility] | | [facility] | | | | | | CENTER - | | | | | | LABORATORY | | + + + + + + | Hemoglobin | 14.0 | 11.5 - 16.0 | [facility] | | | | | gm/dL | [facility] | | | | [...] | | | | g/dL | [facility] | | | | | | MEDICAL [...] (H) | 0.0 - 1.0 K/uL | [facility] | | | Monocytes | | | [facility] | | [...] + | [facility] | [address] | [place] | [phone] | | [facility] | | [address] | | | - LABORATORY | | | | + + + + + | [facility] | [address] | [place], [place] | | | [facility] | | [address], [facility] | | | - LABORATORY | | | | + + + + + documented in this encounter Visit Diagnoses + + | Diagnosis | + + | ARTHRITIS, CHRONIC - Primary Arthropathy, unspecified, site unspecified | + + documented in this encounter"
--- OUTSIDE RECORDS SUMMARY | ~2019-07-24 | XMS | Encounter Summary ---
Demographics + + + | Address | [address] | | | [place] [address] | + + + | Home Phone [...] | Author | [facility] | | | and [place] | + + + | Organization | [facility] | | [...] | | | | | [place] [address] | | + + + + + | Valentín Saleh | ECON | [phone] | | | | | [place] [address] | | + + + + + | Roberto Carlos Lennon | LEVI | [place] | | + + + + + Care Team Providers + +------+ + | Care Nursing Care Attendant Name | Role | Phone | + +------+ + PCP | Unavailable | + +------+ + Encounter Details +--------+ + + + + | Date | Type | Department | Care Team | Description | +--------+ + + + + | 10/29/ | Hospital | [facility] | | | | 1996 | Encounter | MED CTR XRAY [address] | | | | | | [place] | | | | | | [place] [address] | | | | | | [phone] | | | +--------+ + + + [...]
--- OUTSIDE RECORDS SUMMARY | ~2019-07-24 | XMS | Encounter Summary ---
Demographics + + + | Address | [address] | | | [place] [address] | + + + | Home Phone [...] Author | [facility] | | | and [place] | + + + | Organization | [facility] [...] | | | | | [place] [address] | | + + + + + | Valentín Saleh | ECON | [phone] | | | | | [place] [address] | | + + + + + | Roberto Carlos Lennon | LEVI | Unknown | | + + + + + Care Team Providers + +------+ + | Care Die Cutter Diamond Name | Role | Phone | + +------+ + | Francois Pascal MD | PCP | | + +------+ + Encounter Details +--------+ + + + + | Date | Type | Department | Care Team | Description | +--------+ + + + + | 01/19/ | Hospital | [facility] | Fackenthall, | CHRONIC KIDNEY | | 2016 | Encounter | MED CTR LABORATORY | [address] | DISEASE STAGE III | | | | [address] [place] | [address] [facility] | (MODERATE) | | | | [place] | [address] [place] | | | | | [address] | [address] | | | | | [phone] | | | +--------+ + + + [...] | | 0 | | | | Nhubjzg-Nirszhxlr-Kp | mouth Daily. | | | | [...] + | [facility] | [address] | [place] | [phone] | | [facility] | | [address] | | | - LABORATORY | | | | + + + + + Parathyroid Hormone, Intact (01/20/2016 10:01 AM PST) + +---------+ + + + | Component | Value | Ref Range | Performed | Pathologist | | | | | At | Signature | + +---------+ + + + | PTH Intact | 111 (H) | 12 - 88 pg/mL | YANE [...] [address] | [place] | [phone] | | [facility] | | [address] | | | - LABORATORY | | [...] mL/min/1.73m2 | [facility] | | | [place] | | | MEDICAL | | | [...] [address] | [place] | [phone] | | [facility] | | [address] | | | - LABORATORY | | | | + + + + + documented in this encounter Visit Diagnoses + + | Diagnosis | + + | CHRONIC KIDNEY DISEASE STAGE III (MODERATE) Chronic kidney disease, Stage III | | (moderate) | + + documented in this encounter"
--- OUTSIDE RECORDS SUMMARY | ~2019-07-24 | XMS | Encounter Summary ---
Demographics + + + | Address | [address] | | | [place] [address] | + + + | Home Phone [...] Author | [facility] | | | and [place] | + + + | Organization | [facility] [...] | | | | | [place] [address] | | + + + + + | Valentín Saleh | ECON | [address] | | | | | [place] [address] | | + + + + + | Roberto Carlos Lennon | LEVI | Unknown | | + + + + + Care Team Providers + +------+ + | Care Journeyman Patternmaker Name | Role | Phone | + +------+ + | Francois Pascal MD | PCP | | + +------+ + Encounter Details +--------+ + + + + | Date | Type | Department | Care Team | Description | +--------+ + + + + | 11/25/ | Hospital | [facility] | Francois Pascal, | Confusion | | 2015 | Encounter | MED CTR ULTRASOUND | [address] | | | | | [address] [place] | [address] [place], | | | | | [place], [place] | [place] [address] | | | | | [address] | [phone] | | | | | [phone] | | | | | | | [...] | | mellitus) ([facility]) | DINNER | | | [...] a better study ie MRA to eval. Katie TC a couple days after MRA which [...] CLINICAL HISTORY: confusion COMPARISON: CAROTID ULTRASOUND | [facility] | | FEBRUARY 2009 FINDINGS: Grayscale, color [...] | + + + + + | [facility] | [address] | [place], [place] | [phone] | | [facility] | | [address] | | | - IMAGING | | | | + + + + + documented in this encounter Visit Diagnoses + + | Diagnosis | + + | Confusion Unspecified psychosis | + + documented in this encounter"
--- OUTSIDE RECORDS SUMMARY | ~2019-07-24 | XMS | Encounter Summary ---
Demographics + + + | Address | [address] | | | [place] [address] | + + + | Home Phone [...] | Author | [facility] | | | and [place] | + + + | Organization | [facility] | [...] | | | | | [place] [address] | | + + + + + | Valentín Saleh | ECON | [phone] | | | | | [place] [address] | | + + + + + | Roberto Carlos Lennon | LEVI | Unknown | | + + + + + Care Team Providers + +------+ + | Care Account Collector Name | Role | Phone | + +------+ + | Francois Pascal MD | PCP | | + +------+ + Encounter Details +--------+ + + + + | Date | Type | Department | Care Team | Description | +--------+ + + + + | 03/22/ | Hospital | [facility] | Francois Pascal, | | | 2011 | Encounter | MED CTR LABORATORY | [address] | | | | | [address] [place] | [address] [place], | | | | | [place] | [place] [address] | | | | | [address] | [phone] | | | | | [phone] | | | +--------+ + + + [...] 3.9 | 3.2 - 5.0 gm/dL | [facility] | | | | | [...] + | [facility] | [address] | [place] | [phone] | | [facility] | | [address] | | | - LABORATORY | | | | + + + + + | [facility] | [address] | [place], [place] | | | [facility] | | [address], [facility] | | | - LABORATORY | [...] + | [facility] | [address] | [place] | [phone] | | [facility] | | [address] | | | - LABORATORY | | | | + + + + + | [facility] | [address] | [place] | | | [facility] | | [address] [place] [address] | | | - LABORATORY | | | | + + + + + documented in this encounter Visit Diagnoses Not on filedocumented in this encounter"
--- OUTSIDE RECORDS SUMMARY | ~2019-07-24 | XMS | Encounter Summary ---
Demographics + + + | Address | [address] | | | [place] [address] | + + + | Home Phone [...] | Author | [facility] | | | and [place] | + + + | Organization | [facility] | [...] | | | | | [place] [address] | | + + + + + | Valentín Saleh | ECON | [phone] | | | | | [place] [address] | | + + + + + | Roberto Carlos Lennon | LEVI | Unknown | | + + + + + Care Team Providers + +------+ + | Care Prospecting Driller Name | Role | Phone | + [...] Refill | | 2016 | | MEDICINE [facility] Sergio | [address] | | | | | [facility] | [address], | | | | | [place] [address] | [place] [address] | | | | | [phone] | [phone] | | | | | | | [...]
--- OUTSIDE RECORDS SUMMARY | ~2019-07-24 | XMS | Encounter Summary ---
Demographics + + + | Address | [address] | | | [place] [address] | + + + | Home Phone [...] | Author | [facility] | | | and [place] | + + + | Organization | [facility] [...] | | | | | [place] [address] | | + + + + + | Valentín Saleh | ECON | [address] | | | | | [place] [address] | | + + + + + | Roberto Carlos Lennon | LEVI | [place] | | + + + + + Care Team Providers + +------+ + | Care Jack Winder Name | Role | Phone | + +------+ + PCP | Unavailable | + +------+ + Encounter Details +--------+ + + + + | Date | Type | Department | Care Team | Description | +--------+ + + + + | 02/17/ | Hospital | [facility] | | | | 2006 | Encounter | MED CTR XRAY [address] | | | | | | [place] | | | | | | [place] [address] | | | | | | [phone] | | | +--------+ + + + [...]
--- OUTSIDE RECORDS SUMMARY | ~2019-07-24 | XMS | Encounter Summary ---
Demographics + + + | Address | [address] | | | [place] [address] | + + + | Home Phone [...] Author | [facility] | | | and [place] | + + + | Organization | [facility] | | | and [place] | + + + | Address | Unknown | + + + | Phone | Unavailable | + + + Support + + + + + | Name | Relationship | Address | Phone | + + + + + | Sigrdi Lennon | ECON | [address] | | | | | [place] [address] | | + + + + + | Valentín Saleh | ECON | [phone] | | | | | [place] [address] | | + + + + + | Roberto Carlos Lennon | LEVI | Unknown | | + + + + + Care Team Providers + +------+ + | Care Diabetes Education Coordinator Name | Role | Phone | + +------+ + | Francois Pascal MD | PCP | | + +------+ + Reason for Visit + + + | Reason | Comments | + + + | Imaging Only | | + + + Encounter Details +--------+ + + + + | Date | Type | Department | Care Team | Description | +--------+ + + + + | 09/16/ | Telephone | [facility] | Francois Pascal, | Imaging Only | | 2016 | | MEDICINE [address] | [address] [facility] [facility] [address] | | | | | [facility] | [address], | | | | | [place] [address] | [place] [address] | | | | | [phone] | [phone] | | | | | | | [...]
--- OUTSIDE RECORDS SUMMARY | ~2019-07-24 | XMS | Encounter Summary ---
Demographics + + + | Address | [address] | | | [place] [address] | + + + | Home Phone [...] Author | [facility] | | | and [place] | + + + | Organization | [facility] [...] | | | | | [place] [address] | | + + + + + | Valentín Saleh | ECON | [address] | | | | | [place] [address] | | + + + + + | Roberto Carlos Lennon | LEVI | Unknown | | + + + + + Care Team Providers + +------+ + | Care Grave Cleaner Name | Role | Phone | + +------+ + | Francois Pascal MD | PCP | | + +------+ + Reason for Visit + + + | Reason | Comments | + + + | Medication | | | Management | | + + + Encounter Details +--------+ + + + + | Date | Type | Department | Care Team | Description | +--------+ + + + + | 03/28/ | Telephone | [facility] | Francois Pascal, | Medication | | 2017 | | MEDICINE [address] | [address] | Management | | | | [place] | [address], | | | | | [place] [address] | [place] [address] | | | | | [phone] | [phone] | | | | | | | [...]
--- OUTSIDE RECORDS SUMMARY | ~2019-07-24 | XMS | Encounter Summary ---
Demographics + + + | Address | [address] | | | [place] [address] | + + + | Home Phone [...] | Author | [facility] | | | and [place] | + + + | Organization | [facility] | [...] | | | | | [place] [address] | | + + + + + | Valentín Saleh | ECON | [address] | | | | | [place] [address] | | + + + + + | Roberto Carlos Lennon | LEVI | Unknown | | + + + + + Care Team Providers + +------+ + | Care Web Content Coordinator Name | Role | Phone | [...] Refill | | 2013 | | MEDICINE [facility] | [address] | | | | | [address] | [address], | | | | | [place] | [place] [address] | | | | | [address] | [phone] | | | | | [phone] | | | +--------+--------+ + + + [...]
--- OUTSIDE RECORDS SUMMARY | ~2019-07-24 | XMS | Encounter Summary ---
Demographics + + + | Address | [address] | | | [place] [address] | + + + | Home Phone [...] | Author | [facility] | | | and [place] | + + + | Organization | [facility] [...] | | | | | [place] [address] | | + + + + + | Valentín Saleh | ECON | [address] | | | | | [place] [address] | | + + + + + | Roberto Carlos Lennon | LEVI | Unknown | | + + + + + Care Team Providers + +------+ + | Care Wage And Hour Investigator Name | Role | Phone | [...] | 08/12/ | Refill | [facility] [place] | Stephenie Paul, | Medication Refill | | 2016 | | CARDIOLOGY [address] | MD [address] [place] | | | | | [place], | [place], | | | | | [place] [address] | [place] [address] | | | | | [phone] | [phone] | | | | | | | [...]
--- OUTSIDE RECORDS SUMMARY | ~2019-07-24 | XMS | Encounter Summary ---
Demographics + + + | Address | [address] | | | [place] [address] | + + + | Home Phone [...] | Author | [facility] | | | and [place] | + + + | Organization | [facility] | [...] | | | | | [place] [address] | | + + + + + | Valenítn Saleh | ECON | [address] | | | | | [place] [address] | | + + + + + | Roberto Carlos Lennon | LEVI | Unknown | | + + + + + Care Team Providers + +------+ + | Care Kiln Door Builder Name | Role | Phone | [...] Refill | | 2013 | | MEDICINE [place] | [address] | | | | | [address] | [address], | | | | | [place] | [place] [address] | | | | | [address] | [phone] | | | | | [phone] | | | +--------+--------+ + + + [...]
--- OUTSIDE RECORDS SUMMARY | ~2019-07-24 | XMS | Encounter Summary ---
Demographics + + + | Address | [address] | | | [place] [address] | + + + | Home Phone [...] Author | [facility] | | | and [place] | + + + | Organization | [facility] | [...] | | | | | [place] [address] | | + + + + + | Valentín Saleh | ECON | [address] | | | | | [place] [address] | | + + + + + | Roberto Carlos Lennon | LEVI | [place] | | + + + + + Care Team Providers + +------+ + | Care Nurse Technician Name | Role | Phone | + +------+ + PCP | Unavailable | + +------+ + Encounter Details +--------+ + + + + | Date | Type | Department | Care Team | Description | +--------+ + + + + | 03/03/ | Hospital | [facility] | Roberto Carlos Tello, | | | 1992 | Encounter | MED CTR XRAY [address] | [address] [facility] | | | | | [place] | [place] | | | | | [place] [address] | [address] | | | | | [phone] | | | +--------+ + + + [...]
--- OUTSIDE RECORDS SUMMARY | ~2019-07-24 | XMS | Encounter Summary ---
Demographics + + + | Address | [address] | | | [place] [address] | + + + | Home Phone [...] [facility] | | | and [place] | + + + | Organization | [facility] | [...] | | | | | [place] [address] | | + + + + + | Valentín Saleh | ECON | [address] | | | | | [place] [address] | | + + + + + | Roberto Carlos Lennon | LEVI | Unknown | | + + + + + Care Team Providers + +------+ + | Care Handle Turner Name | Role | Phone | + [...] | [address] | [address] [place] | (mild) (Primary Dx); | | | | [place], [place] | [address] [place] [address] | Vitamin D | | | | [address] | [address] | deficiency | | | | [phone] | | | +--------+ + + + [...] in this en counter Plan of Treatment + +------+--------+ + + [...] | [address] | | | [facility] | | [...] + | [facility] | [address] | [place] | [phone] | | [facility] | | [address] | | | - LABORATORY | | [...]
--- OUTSIDE RECORDS SUMMARY | ~2019-07-24 | XMS | Encounter Summary ---
Demographics + + + | Address | [address] | | | [place] [address] | + + + | Home Phone [...] Author | [facility] | | | and [place] | + + + | Organization | [facility] | | [...] | | | | | [place] [address] | | + + + + + | Valentín Saleh | ECON | [address] | | | | | [place] [address] | | + + + + + | Roberto Carlos Lennon | LEVI | Unknown | | + + + + + Care Team Providers + +------+ + | Care Biosecurity Officer Name | Role | Phone | + +------+ + | Francois Pascal MD | PCP | | + +------+ + Reason for Visit + + + | Reason | Comments | + + + | Appointment | NO SHOW ON 04-30-16 NEEDS RESCHEDULED | + + + Encounter Details +--------+ + + + + | Date | Type | Department | Care Team | Description | +--------+ + + + + | 05/21/ | Telephone | [facility] | Stephenie Paul, | Appointment (NO SHOW | | 2017 | | CARDIOLOGY [address] | [address] [place] | ON 04-30-16 NEEDS | | | | [place], | [place], | RESCHEDULED) | | | | [place] [address] | [place] [address] | | | | | [phone] | [phone] | | | | | | | [...]
--- OUTSIDE RECORDS SUMMARY | ~2019-07-24 | XMS | Encounter Summary ---
Demographics + + + | Address | [address] | | | [place] [address] | + + + | Home Phone [...] Author | [facility] | | | and Clarkeana | + + + | Organization | [facility] [...] | | | | | [place] [address] | | + + + + + | Valentín Saleh | ECON | [phone] | | | | | [place] [address] | | + + + + + | Roberto Carlos Lennon | LEVI | Unknown | | + + + + + Care Team Providers + +------+ + | Care Facility Maintenance Helper Name | Role | Phone | [...] | 09/14/ | Refill | [facility] | Francois Pascal, | Medication Refill | | 2012 | | MEDICINE [place] | [address] | | | | | [address] | [address], | | | | | [place] | [place] [address] | | | | | [address] | [phone] | | | | | [phone] | | | +--------+--------+ + + + [...]
--- OUTSIDE RECORDS SUMMARY | ~2019-07-24 | XMS | Encounter Summary ---
Demographics + + + | Address | [address] | | | [place] [address] | + + + | Home Phone [...] | Author | [facility] | | | and Clarkeana | + + + | Organization | [facility] | [...] | | | | | [place] [address] | | + + + + + | Valentín Saleh | ECON | [address] | | | | | [place] [address] | | + + + + + | Roberto Carlos Lennon | LEVI | Unknown | | + + + + + Care Team Providers + +------+ + | Care Shift Supervisor Rn Name | Role | Phone | [...] + + | 11/14/ | Emergency | [facility] | David Cross, | Adverse effects of | | 2014 | | MED CTR EMERGENCY | [address] | medication, initial | | | | CENTER [address] | [place] | encounter (nausea | | | | [place] | [address] | from antibiotic) | | | | [address] | | (Primary Dx); | | | | [phone] | | Dehydration; Slow | | | [...] be sent through Care Everywhere.CONSTIPATION (Frank JESUS) (MARTINIQUAIS)documented in this encounter Medications at Time of [...] | | | | mellitus) ([facility]) | DINNER | | | [...] - 1.030 | [facility] | | | [place], | | | [facility] | | [...] ST. | [address] | [place], [place] | [phone] | | [facility] | | [address] | | | - LABORATORY | | [...] + + | Performing | Address | City/State/Unm Cancer Centercode | Phone Number | | Organization [...] | Top Tube | | | [facility] | | | | | | [...] [address] | [place] | [phone] | | [facility] | | [address] | | | - LABORATORY | | [...] + | [facility] | [address] | [place] | [phone] | | [facility] | | [address] | | | - LABORATORY | | [...] | | Time | | seconds | [facility] | | | | | | MEDICAL | | | | | | CENTER - | | | | | | LABORATORY | | + + + + + + | INR | 1.00Comment: Usual Oral | 0.90 - 1.10 | [facility] | | | | Anticoagulation Range: | | [facility] | | | | 2.0 - 3.0High [...] [address] | [place] | [phone] | | [facility] | | [address] | | | - LABORATORY | | [...] not | 39 (L)Comment: | >=60 | [facility] | | | | GLOMERULAR FILTRATION | mL/min/1.73m2 | [facility] | | | ESTONIAN | RATE,ESTIMATED | | MEDICAL | | | | mL/min/1.42n5Hohw than | | CENTER - | | [...] 0.7 | 0.1 - 1.5 mg/dL | [facility] [...] + | [facility] | [address] | [place] | [phone] | | [facility] | | [address] | | | - LABORATORY | | [...] [address] | [place] | [phone] | | [facility] | | [address] | | | - LABORATORY | | [...] 4:09 | | | | | ONCE, [facility] 11/14/14 at 1550, For 1 | | PM PDT | | | | | dose, Put in enema, | | | | | | + +--------+ +-------+------+------+ +---+---+ | | | +---+---+ + +-------+ +------+---+---+ | diazepam (VALIUM) tablet 5 mg | Given | 11/15/19 | 5 mg | | | | 5 mg, Oral, ONCE, Aarti 11/14/14 at | | 15 2:53 | | [...]
--- OUTSIDE RECORDS SUMMARY | ~2019-07-24 | XMS | Encounter Summary ---
Demographics + + + | Address | [address] | | | [place] [address] | + + + | Home Phone [...] Author | [facility] | | | and Clarkeana | + + + | Organization | [facility] | | [...] | | | | | [place] [address] | | + + + + + | Valentín Saleh | ECON | [phone] | | | | | [place] [address] | | + + + + + | Roberto Carlos Lennon | LEVI | Unknown | | + + + + + Care Team Providers + +------+ + | Care Senior Consulting Manager Name | Role | Phone | + +------+ + | Francois Pascal MD | PCP | | + +------+ + Encounter Details +--------+---------+ + + + | Date | Type | Department | Care Team | Description | +--------+---------+ + + + | 02/02/ | Office | [facility] | Stephenie Paul, | Coronary artery | | 2018 | Visit | CARDIOLOGY [address] | [address] | disease involving | | | | [place], | [place], | [place] coronary | | | | [place] [address] | [place] [address] | artery of [place] | | | | [phone] | [phone] | heart without angina | | | [...] ce that time, patient been living at [facility]. Today, patient is feeling good with no cardiac symptom. Patient is physically inactive but does physical therapy for twenty minutes a day. There is no chest pain or chest discomfort both at rest and on exertio n. Patient denies breathlessness. There is no palpitation dizziness or lightheadedness. Pat esau can sleep on one pillow at night [...] renal complications Glossitis Coronary artery disease involving [place] coronary artery of [place] heart without angina pectoris Hyperlipidemia, mixed AMI [...] rectally Daily as needed for Constipation. 0 Zqvninh-Pdjydeewo-Fixheym D (CALCIUM 500 PO) Take 1 tablet [...] RESULTS reviewed during visit today primarily from [facility]: LIPID Lab Results Component Value Date CHOL [...] Extensive history of coronary artery disease involving [place] coronary artery of [place] heart without angina pectoris: A. Status post [...] She is in a class I of [place] [employer] functional class. There is bilateral 2+ trace leg swelling retention on physical examinatio n. 2. Paroxysmal atrial fibrillation: A. Risk of stroke is reviewed today; her risk factors are Hx of HTN (1), Age >/= 76 y.o.(2 ), Diabetes (1) and Female Gender (1), giving her a WMO4AK7-BYQn of 5, estimating a 5=6.7% r isk [...] have reviewed and edited this note. Marisabel Mireles Car Head Liner Installer 02/02/2018 I, Stephenie Paul MD, personally performed the services described in this documentation, as scribed in my presence and it is both accurate and complete. Marisabel Mireles Car Head Liner Installer 13:41 Electronically signed by: Stephenie Paul MD [facility] 02/02/2018 Portions of this chart may have been created with [employer] voice recognition software. Occasi onal wrong-word or [...] + + | Coronary artery disease involving [place] coronary artery of [place] heart without | | angina pectoris - Primary | + + documented in this encounter
--- OUTSIDE RECORDS SUMMARY | ~2019-07-24 | XMS | Encounter Summary ---
Demographics + + + | Address | [address] | | | [place] [address] | + + + | Home Phone [...] | Author | [facility] | | | and Clarkeana | + + + | Organization | [facility] | [...] | | | | | [place] [address] | | + + + + + | Valentín Saleh | ECON | [phone] | | | | | [place] [address] | | + + + + + | Roberto Carlos Lennon | LEVI | Unknown | | + + + + + Care Team Providers + +------+ + | Care Health Information Coder Name | Role | Phone | [...] | [address] | [address] [place] | (MODERATE) (Primary | | | | [place], [place] | [address] [place], [place] | Dx) | | | | [address] | [address] | | | | | [phone] | | | +--------+ + + + [...] this encounter Progress Anika Root RN - 11/26/2013 1:32 PM PDTLab order for nephrology appointment on 12/31/13 [facility]. documented in this encounter Plan of Treatment Not on filedocumented as of this encounter Visit Diagnoses + + | Diagnosis | + + | CHRONIC KIDNEY DISEASE STAGE III (MODERATE) - Primary Chronic kidney disease, Stage | | III (moderate) | + + documented in this encounter"
--- OUTSIDE RECORDS SUMMARY | ~2019-07-24 | XMS | Encounter Summary ---
Demographics + + + | Address | [address] | | | [place] [address] | + + + | Home Phone [...] | Author | [facility] | | | and [place]ana | + + + | Organization | [facility] | | | [...] | | | | | [place] [address] | | + + + + + | Valentín Saleh | ECON | [id number] | | | | | [place] [address] | | + + + + + | Roberto Carlos Lennon | LEVI | Unknown | | + + + + + Care Team Providers + +------+ + | Care Leaf Stamper Name | Role | Phone | [...] | | 2013 | | MEDICINE [address] | [address] | | | | | [place] | [address], | | | | | [place] [address] | [place] [address] | | | | | [phone] | [phone] | | | | | | | [...]
--- OUTSIDE RECORDS SUMMARY | ~2019-07-24 | XMS | Encounter Summary ---
Demographics + + + | Address | [address] | | | [place] [address] | + + + | Home Phone | | + + + | Preferred Language | Unknown | + + + | Marital Status | | + + + | Zoroastrianism Affiliation | Unknown | + + + | Race | Unknown | + + + | Ethnic Group | Unknown | + + + Author + + + | Author | and [facility] | | | and [place] | + + + | Organization | [facility] | | [...] | | | | | [place] [address] | | + + + + + | Valentín Saleh | ECON | [address] | | | | | [place] [address] | | + + + + + | Roberto Carlos Lennon | LEVI | [place] | | + + + + + Care Team Providers + +------+ + | Care Manager Home Name | Role | Phone | + +------+ + PCP | Unavailable | + +------+ + Encounter Details +--------+ + + + + | Date | Type | Department | Care Team | Description | +--------+ + + + + | 07/27/ | Hospital | [facility] | | | | 2005 | Encounter | MED CTR XRAY [address] | | | | | | [place] | | | | | | [place] [address] | | | | | | [phone] | | | +--------+ + + + [...]
--- OUTSIDE RECORDS SUMMARY | ~2019-07-24 | XMS | Encounter Summary ---
Demographics + + + | Address | [address] | | | [place] [address] | + + + | Home Phone [...] | Author | [facility] | | | and Clarkeana | + + + | Organization | [facility] [...] | | | | | [place] [address] | | + + + + + | Valentín Saleh | ECON | [phone] | | | | | [place] [address] | | + + + + + | Roberto Carlos Lennon | LEVI | Unknown | | + + + + + Care Team Providers + +------+ + | Care Employment And Claims Aide Name | Role | Phone | [...] + | 09/04/ | Refill | [facility] | Francois Pascal, | Medication Refill | | 2012 | | [facility] | [address] | | | | | [address] | [address] [place] [place], | | | | | [place] | [place] [address] | | | | | [address] | [phone] | | | | | [phone] | | | +--------+--------+ + + + [...]
--- OUTSIDE RECORDS SUMMARY | ~2019-07-24 | XMS | Encounter Summary ---
Demographics + + + | Address | [address] | | | [place] [address] | + + + | Home Phone [...] | Author | [facility] | | | and [place]ana | + + + | Organization | [facility] [...] | | | | | [place] [address] | | + + + + + | Valentín Saleh | ECON | [phone] | | | | | [place] [address] | | + + + + + | Roberto Carlos Lennon | LEVI | Unknown | | + + + + + Care Team Providers + +------+ + | Care Maintenance Clerk Name | Role | Phone | [...] | 09/13/ | Refill | [facility] [place] [facility] | Francois Pascal, | Medication Refill | | 2014 | | MEDICINE [facility] [address] | [address] | | | | | [facility] | [address], | | | | | [place] [address] | [place] [address] | | | | | [phone] | [phone] | | | | | | | [...]
--- OUTSIDE RECORDS SUMMARY | ~2019-07-24 | XMS | Encounter Summary ---
Demographics + + + | Address | [address] | | | [place] [address] | + + + | Home Phone [...] Author | [facility] | | | and [place] | + + + | Organization | [facility] [...] + | Valentín Saleh | ECON | [phone] | | | | | [place] [address] | | + + + + + | Roberto Carlos Lennon | LEVI | Unknown | | + + + + + Care Team Providers + +------+ + | Care Community Center Director Name | Role | Phone [...] | 04/09/ | Refill | [facility] [place] | Stephenie Paul, | Medication Refill | | 2016 | | CARDIOLOGY [address] | [address] | | | | | [place], | [place], | | | | | [place] [address] | [place] [address] | | | | | [phone] | [phone] | | | | | | | [...]
--- OUTSIDE RECORDS SUMMARY | ~2019-07-24 | XMS | Encounter Summary ---
Demographics + + + | Address | [address] | | | [place] [address] | + + + | Home Phone [...] Author | [facility] | | | and Clarkeana | + + + | Organization | [facility] | [...] | | | | | [place] [address] | | + + + + + | Valentín Saleh | ECON | [phone] | | | | | [place] [address] | | + + + + + | Roberto Carlos Lennon | LEVI | Unknown | | + + + + + Care Team Providers + +------+ + | Care System Manager Name | Role | Phone | [...] + | 12/19/ | Refill | [facility] | Francois Pascal, | Medication Refill | | 2011 | | [facility] | [address] | | | | | [address] | [address] [place], | | | | | [place] | [place] [address] | | | | | [address] | [phone] | | | | | [phone] | | | +--------+--------+ + + + [...]
--- OUTSIDE RECORDS SUMMARY | ~2019-07-24 | XMS | Encounter Summary ---
Demographics + + + | Address | [address] | | | [place] [address] | + + + | Home Phone [...] Author | [facility] | | | and Clarkeana | + + + | Organization | [facility] | [...] | | | | | [place] [address] | | + + + + + | Valentín Saleh | ECON | [phone] | | | | | [place] [address] | | + + + + + | Roberto Carlos Lennon | LEVI | Unknown | | + + + + + Care Team Providers + +------+ + | Care Solid Propellant Processor Name | Role | Phone | + +------+ + | Francois Pascal MD | PCP | | + +------+ + Encounter Details +--------+ + + + + | Date | Type | Department | Care Team | Description | +--------+ + + + + | 05/24/ | Hospital | [facility] | Francois Pascal, | | | 2011 | Encounter | MED CTR LABORATORY | [address] | | | | | [address] [place] | [address], | | | | | [place] | [place] [address] | | | | | [address] | [phone] | | | | | [phone] | | | +--------+ + + + [...] + | [facility] | [address] | [place] | [phone] | | [facility] | | [address] | | | - LABORATORY | | | | + + + + + | [facility] | [address] | [place], [place] | | | [facility] | | [id number] [place] [address] | | | - LABORATORY | | [...] - 1.030 | [facility] | | | [place], | | | [facility] | | [...] + | [facility] | [address] | [place] | [phone] | | [facility] | | [address] | | | - LABORATORY | | | | + + + + + | [facility] | [address] | [place] | | | [facility] | | [address] [place] [address] | | | - LABORATORY | | | | + + + + + documented in this encounter Visit Diagnoses Not on filedocumented in this encounter"
--- OUTSIDE RECORDS SUMMARY | ~2019-07-24 | XMS | Encounter Summary ---
Demographics + + + | Address | [address] | | | [place] [address] | + + + | Home Phone [...] + + | Author | [facility] | | | and [place]ana | + + + | Organization | [facility] | | [...] | | | | | [place] [address] | | + + + + + | Valentín Saleh | ECON | [address] | | | | | [place] [address] | | + + + + + | Roberto Carlos Lennon | LEVI | [place] | | + + + + + Care Team Providers + +------+ + | Care Cook Pie Name | Role | Phone | + +------+ + PCP | Unavailable | + +------+ + Encounter Details +--------+ + + + + | Date | Type | Department | Care Team | Description | +--------+ + + + + | 03/28/ | Hospital | [facility] | | | | 2000 - | Encounter | MED CTR DIETARY | | | | | | [address] [place] | | | | 06/26/ | | [place] [address] | | | | 2000 | | [phone] | | | +--------+ + + + [...]
--- OUTSIDE RECORDS SUMMARY | ~2019-07-24 | XMS | Encounter Summary ---
Demographics + + + | Address | [address] | | | [place] [address] | + + + | Home Phone [...] | Author | [facility] | | | and Clarkeana | + + + | Organization | [facility] | [...] | | | | | [place] [address] | | + + + + + | Valentín Saleh | ECON | [address] | | | | | [place] [address] | | + + + + + | Roberto Carlos Lennon | LEVI | [place] | | + + + + + Care Team Providers + +------+ + | Care Quarter Folder Name | Role | Phone | + +------+ + PCP | Unavailable | + +------+ + Encounter Details +--------+ + + + + | Date | Type | Department | Care Team | Description | +--------+ + + + + | 01/17/ | Hospital | [facility] | Fer Singh | | | 1997 | Encounter | MED CTR XRAY [address] | M, DO [address] | | | | | [place] | [place] | | | | | [place] [address] | [place], [place] | | | | | [phone] | [id number] | | | | | | | [...]
--- OUTSIDE RECORDS SUMMARY | ~2019-07-24 | XMS | Encounter Summary ---
Demographics + + + | Address | [address] | | | [place] [address] | + + + | Home Phone [...] | Author | [facility] | | | and Clarkeana | + + + | Organization | [facility] [...] | | | | | [place] [address] | | + + + + + | Valentín Saleh | ECON | [address] | | | | | [place] [address] | | + + + + + | Roberto Carlos Lennon | LEVI | Unknown | | + + + + + Care Team Providers + +------+ + | Care Child Protective Services Specialist Name | Role | Phone | [...] | +--------+ + + + + | 08/13/ | Telephone | [facility] | Francois Pascal, | Referral | | 2015 | | MEDICINE [address] | [address] | | | | | [place] | [address], | | | | | [place] [address] | [place] [address] | | | | | [phone] | [phone] | | | | | | | [...]
--- OUTSIDE RECORDS SUMMARY | ~2019-07-24 | XMS | Encounter Summary ---
Demographics + + + | Address | [address] | | | [place] [address] | + + + | Home Phone [...] | | | | | [place] [address] | | + + + + + | Valentín Saleh | ECON | [address] | | | | | [place] [address] | | + + + + + | Roberto Carlos Lennon | LEVI | Unknown | | + + + + + Care Team Providers + +------+ + | Care Aspnet Developer Name | Role | Phone | + +------+ + | Francois Pascal MD | PCP | | + +------+ + Encounter Details +--------+ + + + + | Date | Type | Department | Care Team | Description | +--------+ + + + + | 03/06/ | Hospital | [facility] | Francois Pascal, | Visit for screening | | 2015 | Encounter | MED CTR MAMMOGRAPHY | [address] | mammogram | | | | [address] | [address], | | | | | [place] | [place] [address] | | | | | [address] | [phone] | | | | | [phone] | | | +--------+ + + + [...] | | | mammograms dating back to 2006. FINDINGS: Breast composition is | | | [...] | + + + + + | [facility] | [address] | [place] | [phone] | | [facility] | | [address] | | | - IMAGING | | | | + + + + + documented in this encounter Visit Diagnoses + + | Diagnosis | + + | Visit for screening mammogram Other screening mammogram | + + documented in this encounter"
--- OUTSIDE RECORDS SUMMARY | ~2019-07-24 | XMS | Encounter Summary ---
Demographics + + + | Address | [address] | | | [place] [address] | + + + | Home Phone [...] | Author | [facility] | | | and [place]ana | + + + | Organization | [facility] [...] | | | | | [place] [address] | | + + + + + | Valentín Saleh | ECON | [address] | | | | | [place] [address] | | + + + + + | Roberto Carlos Lennon | LEVI | Unknown | | + + + + + Care Team Providers + +------+ + | Care Roofer Name | Role | Phone | + +------+ + | Francois Pascal MD | PCP | | + +------+ + Encounter Details +--------+ + + + + | Date | Type | Department | Care Team | Description | +--------+ + + + + | 09/14/ | Hospital | [facility] | Francois Pascal, | DM (diabetes | | 2014 | Encounter | MED CTR LABORATORY | [address] | mellitus) | | | | [address] [place] | [address], | | | | | [place] | [place] [address] | | | | | [address] | [phone] | | | | | [phone] | | | +--------+ + + + [...] encounter Progress Notes Francois Pascal MD - 09/14/2013 12:03 PM PDT Quick Note: Ok for ma to notify patient that he has somewhat abnormal labs and would like to discuss john broyd a month. documented in thi s encounter Plan of Treatment Not on filedocumented as of this encounter Procedures + +--------+ + + + | Procedure Name | Priori | Date/Time | Associated Diagnosis | Comments | | | ty | | | | + +--------+ + + + | HEMOGLOBIN A1C | Routin | 09/14/2013 | DM (diabetes | Results for this | | | e | 10:01 AM | mellitus) | procedure are in the | | | | PDT | | results section. | + +--------+ + + + documented in this encounter Results Hemoglobin A1C (09/14/2013 10:01 [...] | Estimated | 186 | mg/dL | [facility] | | | Average | | | [...] [address] | [place] | [phone] | | [facility] | | [address] | | | - LABORATORY | | | | + + + + + | [facility] | [address] | [place] | | | [facility] | | [address], [facility] | | | - [...]
--- OUTSIDE RECORDS SUMMARY | ~2019-07-24 | XMS | Encounter Summary ---
Demographics + + + | Address | [address] | | | [place] [address] | + + + | Home Phone [...] | Author | [facility] | | | and Clarkeana | + + + | Organization | [facility] | [...] | | | | | [place] [address] | | + + + + + | Valentín Saleh | ECON | [address] | | | | | [place] [address] | | + + + + + | Roberto Carlos Lennon | LEVI | [place] | | + + + + + Care Team Providers + +------+ + | Care Draw Operator Name | Role | Phone | + +------+ + PCP | Unavailable | + +------+ + Encounter Details +--------+ + + + + | Date | Type | Department | Care Team | Description | +--------+ + + + + | 03/23/ | Hospital | [facility] | David Urban MD | | | 2002 | Encounter | MED CTR GENERIC OP | [address] [place], [place] | | | | | CONV DEPT [address] | [address] [place], [place] | | | | | [place], | [address] | | | | | [place] [address] | | | | | | [phone] | | | +--------+ + + + [...]
--- OUTSIDE RECORDS SUMMARY | ~2019-07-24 | XMS | Encounter Summary ---
Demographics + + + | Address | [address] | | | [place] [address] | + + + | Home Phone [...] + | Author | [facility] | | | and Clarkeana | + + + | Organization | [facility] | [...] | | | | | [place] [address] | | + + + + + | Valentín Saleh | ECON | [id number] | | | | | [place] [address] | | + + + + + | Roberto Carlos Lennon | LEVI | Unknown | | + + + + + Care Team Providers + +------+ + | Care Assembly Worker Name | Role | Phone | [...] | 03/09/ | Refill | [facility] | Francois Pascal, | Medication Refill | | 2012 | | MEDICINE [place] | [address] | | | | | [address] | [address] [place], | | | | | [place] | [place] [address] | | | | | [address] | [phone] | | | | | [phone] | | | +--------+--------+ + + + [...]
--- OUTSIDE RECORDS SUMMARY | ~2019-07-24 | XMS | Encounter Summary ---
Demographics + + + | Address | [address] | | | [place] [address] | + + + | Home Phone [...] | Author | [facility] | | | and [place]ana | + + + | Organization | [facility] | [...] | | | | | [place] [address] | | + + + + + | Valentín Saleh | ECON | [phone] | | | | | [place] [address] | | + + + + + | Roberto Carlos Lennon | LEVI | [place] | | + + + + + Care Team Providers + +------+ + | Care Maintenance Apprentice Name | Role | Phone | + +------+ + PCP | Unavailable | + +------+ + Encounter Details +--------+ + + + + | Date | Type | Department | Care Team | Description | +--------+ + + + + | 04/29/ | Hospital | [facility] | | | | 1999 | Encounter | MED CTR XRAY [address] | | | | | | [place] | | | | | | [place] [address] | | | | | | [phone] | | | +--------+ + + + [...]
--- OUTSIDE RECORDS SUMMARY | ~2019-07-24 | XMS | Encounter Summary ---
Demographics + + + | Address | [address] | | | [place] [address] | + + + | Home Phone [...] Author | [facility] | | | and Clarkeana | + + + | Organization | [facility] | | | [...] | | | | | [place] [address] | | + + + + + | Valentín Saleh | ECON | [phone] | | | | | [place] [address] | | + + + + + | Roberto Carlos Lennon | LEVI | Unknown | | + + + + + Care Team Providers + +------+ + | Care Information Coder Name | Role | Phone [...] + | 05/01/ | Refill | [facility] | Stephenie Paul, | Medication Refill | | 2012 | | CARDIOLOGY [address] | MD [address] | | | | | [address] [place], | [place], | | | | | [place] [address] | [place] [address] | | | | | [phone] | [phone] | | | | | | | [...]
--- OUTSIDE RECORDS SUMMARY | ~2019-07-24 | XMS | Encounter Summary ---
Demographics + + + | Address | [address] | | | [place] [address] | + + + | Home Phone [...] | Author | [facility] | | | and [place] | + + + | Organization | [facility] [...] | | | | | [place] [address] | | + + + + + | Valentín Saleh | ECON | [address] | | | | | [place] [address] | | + + + + + | Roberto Carlos Lennon | LEIV | Unknown | | + + + + + Care Team Providers + +------+ + | Care Microbiology Lab Technician Name | Role | Phone [...] | instability | [address] | [place] | | | | n | [address] | [address] | [place], | | | | | (ICD-10-CM) | [place] | [place] [address] | | | | | - [address] | [place] | Phone: | | | | | (ICD-9-CM) - | [address] | [phone] | | | | | Gait | Phone: | Fax: | | | | | instability | [phone] | [phone] | | | | | Procedures | Fax: | | | | | | pt eval | [phone] | | +--------+ + + + + + Encounter Details +--------+---------+ + + + | Date | Type | Department | Care Team | Description | +--------+---------+ + + + | 02/19/ | Office | [facility] | Francois Pascal, | Posture imbalance | | 2015 | Visit | MED CTR THERAPY PT | MD [address] | (Primary Dx); | | | | OP [address] [place] | [address] [place], | Impaired functional | | | | [place] | [place] [address] | mobility, balance, | | | | [address] | [phone] | gait, and endurance; | | | | [phone] | | Left ankle pain | | | | | Cheyenne Caballero, | | | | | | WING COVERER [address] | | | | | | [place] | | | | | | [address] | | | | | | | [...] encounter Progress Notes Cheyenne Caballero PTA - 02/19/2015 8:43 AM PSTFormatting of this note might be different f rom the original. [facility] CTR THERAPY PT OP [address] [place] [address] Physical Therapy Daily Treatment Note Date: 02/19/2015 Patient Information Patient Name: Alyson Lennon Date of : 1930 Age: 84 y.o. Encounter Diagnoses Code Name Primary? R29.3 Posture imbalance Yes Z74.09 Impaired functional mobility, balance, gait, and endurance M25.572 Left ankle pain Date of Onset: 10/24/2014 Referring Provider: Francois Pascal MD Rehab Precautions Office Visit from 12/24/2014 in [facility] CTR THERAPY PT OP Rehab Precautions Precautions Comments fall risk Start Time: 0800 Stop time: 0845 Duration: 45 minutes Timed Treatment Codes: 45 minutes # of PT Visits to Date: 11 Subjective: Reports her ankle is hurting more today. [place] fine yesterday. Feels it may be the [...]
--- OUTSIDE RECORDS SUMMARY | ~2019-07-24 | XMS | Encounter Summary ---
Demographics + + + | Address | [address] | | | [place] [address] | + + + | Home Phone [...] Author | [facility] | | | and [place] | + + + | Organization | [facility] | | [...] | | | | | [place] [address] | | + + + + + | Valentín Saleh | ECON | [phone] | | | | | [place] [address] | | + + + + + | Roberto Carlos Lennon | LEVI | Unknown | | + + + + + Care Team Providers + +------+ + | Care Podiatric Assistant Name | Role | Phone | [...] Otolaryngolog | Diagnoses | Morascbrianna, | Jason Barillas | | | Services | y | Glossitis | Vernon Tello MD | MD Jaden [address] | | | Required | | | [address] | | | | | | [address] | [address] | | | | | | [place] | [place], | | | | | | [place], [place] | [place] [address] | | | | | | [address] | Phone: | | | | | | Phone: | [phone] | | | | | | [phone] | Fax: | | | | | | Fax: | [phone] | | | | | | [phone] | | +--------+ + + + + + Encounter Details +--------+---------+ + + + | Date | Type | Department | Care Team | Description | +--------+---------+ + + + | 11/30/ | Office | [facility] | Jason Barillas MD | Gingival bleeding | | 2015 | Visit | OTOLARYNGOLOGY [address] | [address] [facility] | (Primary Dx) | | | | [address] [facility] [address] | [address] [place], | | | | | [place], [place] | [place] [address] | | | | | [address] | [phone] | | | | | [phone] | | | +--------+---------+ + + + [...] documented in this encounter Progress Notes Jason Barillas MD - 12/01/2015 10:38 AM PDT [facility] OTOLARYNGOLOGY [address] [facility] [id number] OFFICE NOTE JASON BARILLAS MD Patient: ALYSON LENNON Admitting: MR #: [id number] LOC: PT TYPE: Adm Date: 12/01/2015 : 1930 DATE OF VISIT: 12/01/2015 The patient has had problems with inflammation and irritation in her mouth, she indicates probably for 13 years. She was seen at [facility] and given an injection of cortisone, and [...] PLAN: The patient will get into a windows deployment technician by the name of Dr. Mauricio Bello to see i f she can get this resolved. JASON BARILLAS MD Dictated by JASON BARILLAS MD 12/01/2015 10:38:16 Transcribed on 12/02/2015 11:07:00 by mai potts# [id number] Confirmation #: [id number] cc: VERNON YODER MD Jason de jesus MD - 12/01/2015 10:26 AM PDTSee dictation # [id number] signed by Jason Barillas MD at 12/01/2015 10:39 AM PDTdocumented in th is encounter Plan of Treatment + + +--------+ [...]
--- OUTSIDE RECORDS SUMMARY | ~2019-07-24 | XMS | Encounter Summary ---
Demographics + + + | Address | [address] | | | [place] [address] | + + + | Home Phone [...] Author | [facility] | | | and [place]ana | + + + | Organization | [facility] [...] | | | | | [place] [address] | | + + + + + | Valentín Saleh | ECON | [address] | | | | | [place] [address] | | + + + + + | Roberto Carlos Lennon | LEVI | Unknown | | + + + + + Care Team Providers + +------+ + | Care High Risk Ob Name | Role | Phone | + +------+ + | Francois Pascal MD | PCP | | + +------+ + Encounter Details +--------+ + + + + | Date | Type | Department | Care Team | Description | +--------+ + + + + | 11/23/ | Hospital | [facility] | Francois Pascal, | CHRONIC KIDNEY | | 2013 | Encounter | MED CTR LABORATORY | [address] | DISEASE STAGE III | | | | [address] [place] | [address] [place] [address], | (MODERATE) | | | | [place] | [place] [address] | | | | | [address] | [phone] | | | | | [phone] | | | +--------+ + + + [...] | n, Urine, | | | [facility] | [...] [address] | [place] | [phone] | | [facility] | | [address] | | | - LABORATORY | | | | + + + + + | [address] | [address] | [place] | | | [facility] | | [address] | | | [...] | 7 - 18 mg/dL | [facility] | | | | | | ST. [...] For | >60 mL/min/A | [facility] | | | GFR | -Americans, | [...] + | [address] | [address] | [place], [place] | [phone] | | [facility] | | [address] | | | - LABORATORY | | | | + + + + + | [address] | [address] | [place], [place] | | | [facility] | | [address] | | | - LABORATORY | | | | + + + + + documented in this encounter Visit Diagnoses + + | Diagnosis | + + | CHRONIC KIDNEY DISEASE STAGE III (MODERATE) Chronic kidney disease, Stage III | | (moderate) | + + documented in this encounter"
--- OUTSIDE RECORDS SUMMARY | ~2019-07-24 | XMS | Encounter Summary ---
Demographics + + + | Address | [address] | | | [place] [address] | + + + | Home Phone [...] Author | [facility] | | | and [place] | + + + | Organization | [facility] | [...] | | | | | [place] [address] | | + + + + + | Valentín Saleh | ECON | [address] | | | | | [place] [address] | | + + + + + | Roberto Carlos Lennon | LEVI | Unknown | | + + + + + Care Team Providers + +------+ + | Care Cat Dog Or Other Pet Groomer Name | Role | Phone | + [...] | 09/12/ | Refill | [facility] | Francois Pascal, | Medication Refill | | 2012 | | MEDICINE [place] | [address] | | | | | [address] | [address], | | | | | [place] | [place] [address] | | | | | [address] | [phone] | | | | | [phone] | | | +--------+--------+ + + + [...]
--- OUTSIDE RECORDS SUMMARY | ~2019-07-24 | XMS | Encounter Summary ---
Demographics + + + | Address | [address] | | | [place] [address] | + + + | Home Phone [...] Author | [facility] | | | and [place] | + + + | Organization | [facility] [...] | | | | | [place] [address] | | + + + + + | Valentín Saleh | ECON | [address] | | | | | [place] [address] | | + + + + + | Roberto Carlos Lennon | LEVI | Unknown | | + + + + + Care Team Providers + +------+ + | Care Lap Cutter Truer Operator Name | Role | Phone | [...] + + | 02/07/ | Office | [facility] | Francois Pasacl, | Type 2 diabetes | | 2018 | Visit | MEDICINE [place] | [address] | mellitus with | | | | [address] | [address], | hyperglycemia, with | | | | [place] | [place] [address] | long-term current | | | | [address] | [phone] | use of insulin (HCC) | | | | [phone] | | (Primary Dx); Mild | | [...] VSD Father 50 Pneumonia Family Hx of [place]'s chorea Sister and 2 brothers: CAD, [place]'s Disease to [place] - with 2 Healthy Children No kidney disease in family. Social History: Born in [facility] for 46 years. and Remarried [...]
--- OUTSIDE RECORDS SUMMARY | ~2019-07-24 | XMS | Encounter Summary ---
Demographics + + + | Address | [address] | | | [place] [address] | + + + | Home Phone [...] Author | [facility] | | | and [place] | + + + | Organization | [facility] | | | [...] | | | | | [place] [address] | | + + + + + | Valentín Saleh | ECON | [address] | | | | | [place] [address] | | + + + + + | Roberto Carlos Lennon | LEVI | [place] | | + + + + + Care Team Providers + +------+ + | Care Cable Mechanic Name | Role | Phone | + +------+ + PCP | Unavailable | + +------+ + Encounter Details +--------+ + + + + | Date | Type | Department | Care Team | Description | +--------+ + + + + | 06/03/ | Hospital | [facility] | | | | 2005 | Encounter | MED CTR LABORATORY | | | | | | [address] | | | | | | [place] | | | | | | [address] | | | | | | [phone] | | | +--------+ + + + [...]
--- OUTSIDE RECORDS SUMMARY | ~2019-07-24 | XMS | Encounter Summary ---
Demographics + + + | Address | [address] | | | [place] [address] | + + + | Home Phone [...] | Author | [facility] | | | and [place] | + + + | Organization | [facility] | | [...] | | | | | [place] [address] | | + + + + + | Valentín Saleh | ECON | [address] | | | | | [place] [address] | | + + + + + | Roberto Carlos Lennon | LEVI | [place] | | + + + + + Care Team Providers + +------+ + | Care Photoengraving Apprentice Name | Role | Phone | + +------+ + PCP | Unavailable | + +------+ + Encounter Details +--------+ + + + + | Date | Type | Department | Care Team | Description | +--------+ + + + + | 03/24/ | Hospital | [facility] | Francois Pascal, | | | 2009 | Encounter | MED CTR XRAY [address] | [address] | | | | | [place] | [address] [place], | | | | | [place] [address] | [place] [address] | | | | | [phone] | [phone] | | | | | | | [...]
--- OUTSIDE RECORDS SUMMARY | ~2019-07-24 | XMS | Encounter Summary ---
Demographics + + + | Address | [address] | | | [place] [address] | + + + | Home Phone [...] + | Author | [facility] | | | and [place] | + + + | Organization | [facility] [...] | | | | | [place] [address] | | + + + + + | Valentín Saleh | ECON | [address] | | | | | [place] [address] | | + + + + + | Robetro Carlos Lennon | LEVI | Unknown | | + + + + + Care Team Providers + +------+ + | Care Radio Program Checker Name | Role | Phone | [...] | | RISK | [address] | [address] [place] [address] | | | | | ASSESSMENT | [place] | [address] | | | | | Procedures | Ave | [place], | | | | | FUP | [place], | [place] [address] | | | | | | [place] | Phone: | | | | | | [address] | [phone] | | | | | | Phone: | Fax: | | | | | | [phone] | [phone] | | | | | | Fax: | | | | | | | [phone] | | +--------+--------+ + + + + Encounter Details +--------+---------+ + + + | Date | Type | Department | Care Team | Description | +--------+---------+ + + + | 01/11/ | Office | [facility] | Jennifer Paul, | Preoperative | | 2016 | Visit | CARDIOLOGY [address] | [address] | clearance (Primary | | | | [place], | [place], | Dx); Coronary artery | | | | [place] [address] | [place] [address] | disease involving | | | | [phone] | [phone] | paiute-shoshone coronary | | | | | | artery of paiute-shoshone | | | | | | heart [...] by mouth one time daily in the [facility] ng. 4. Blood test: Fasting- 12 hours prior to test, no food, no caffiene, water is ok Date Due: 2 months Where to go for labs: [facility]- [address] [facility]. 5. Follow up appointment: 3-4 months Provider: [...] She is now seeing a surgeon in [place] who planned to perform left ankle prosthesis. 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 No current facility-administered medications [...] kg (157 lb 4.8 oz) | B AR 28.76 kg/m2 Physical Exam Constitutional: She is [...] RESULTS reviewed during visit today primarily from [facility]: LIPID Lab Results Component Value Date [...] hubbard is in a class I of [place] Heart [employer] functional class. Physical exam shows [...] day. Isn't has history of CAD. Guideli guanako recommend high intensity statin. 3. I recommend [...] reviewed and edited this note. Judith Interiano [facility] 01/12/16 I, Jennifer Paul MD, personally performed the services described in this documentation, as scribed in my presence and it is both accurate and complete. Judith Interiano, Sheet Tester 01/12/2016 8:35 Electronically signed by: Jennifer Paul MD [facility] 01/12/2016 Portions of this chart may have been created with [employer] voice recognition software. Occasi onal wrong-word or [...] the | | | | PST | paiute-shoshone coronary | results section. | | | | | artery of paiute-shoshone | | | | | | heart [...] by | | | | | | BEVERLY ALAMO, JENNIFER | | | | | | ([id number]) on 01/12/2016 | | | | | [...] + + | Coronary artery disease involving paiute-shoshone coronary artery of paiute-shoshone heart without | | angina pectoris | + + | Essential hypertension with goal blood pressure less than 130/80 | + + | Mixed hyperlipidemia | + + documented in this encounter
--- OUTSIDE RECORDS SUMMARY | ~2019-07-24 | XMS | Encounter Summary ---
Demographics + + + | Address | [address] | | | [place] [address] | + + + | Home Phone [...] Author | [facility] | | | and [place]ana | + + + | Organization | [facility] | | | and [...] | | | | | [place] [address] | | + + + + + | Valentín Saleh | ECON | [address] | | | | | [place] [address] | | + + + + + | Roberto Carlos Lennon | LEVI | Unknown | | + + + + + Care Team Providers + +------+ + | Care Cns Name | Role | Phone | + [...] + | 05/19/ | Office | [facility] | Francois Pascal, | CHRONIC KIDNEY | | 2017 | Visit | MEDICINE [address] | [address] | DISEASE STAGE III | | | | Street [facility] | [address], | (MODERATE) (Primary | | | | [place] [address] | [place] [address] | Dx); Diabetes | | | | 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 She is now seeing Dr Ochoa, [place] [facility]. She declines a pain medication for this. [...] VSD Father 50 Pneumonia Family Hx of [place]'s chorea Sister and 2 brothers: CAD, [place]'s Disease to [place] - with 2 Healthy Children No kidney disease in family. Social History: Born in [place] for 46 years. and Remarried 2 sons [...]
--- OUTSIDE RECORDS SUMMARY | ~2019-07-24 | XMS | Encounter Summary ---
Demographics + + + | Address | [address] | | | [place] [address] | + + + | Home Phone [...] + | Author | [facility] | | | and [place] | + + + | Organization | [facility] | | | [...] | | | | | [place] [address] | | + + + + + | Valentín Saleh | ECON | [address] | | | | | [place] [address] | | + + + + + | Roberto Carlos Lennon | LEVI | Unknown | | + + + + + Care Team Providers + +------+ + | Care Semiconductor Bonder Name | Role | Phone | + [...] Arthritis | Francois Tello MD | Glenn Richrads MD | | | Required | Rehabilitatio | of left | [address] | [address] | | | | n | ankle | [address] | [place] | | | | | | [place] | [place], [place] | | | | | | [place], [place] | [address] Phone: | | | | | | [address] | [phone] | | | | | | Phone: | Fax: | | | | | | [phone] | [phone] | | | | | | Fax: | | | | | | | [phone] | | +--------+ + + + + + Encounter Details +--------+---------+ + + + | Date | Type | Department | Care Team | Description | +--------+---------+ + + + | 07/30/ | Office | [facility] | Glenn Miramontes | Left ankle pain | | 2014 | Visit | PHYSIATRY [address] | T[address] | (Primary Dx) | | | | [address] | [place], [place] | | | | | [place], [place] | [address] | | | | | [address] | | | | | | [phone] | | | +--------+---------+ + + + [...] exam table and slipped and fell. 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 Myocardial infarction ([facility]) (1994&1996) CAR with Hx of Myocardial infarction Other abnormal clinical finding Verebral Compression Fractures Glossitis CAD (coronary artery disease) CHF (congestive heart failure) ([facility]) Arthritis Old AR (myocardial infarction) Carotid stenosis H/O ventricular septal [...] Breast surgery 1975 BIOPSY BRESAT, LEFT CURRENT MEDICATIONS: Current Outpatient Prescriptions Medication [...] Other (See Comment) Other family history of [place]'s Disease Other (See Comment) Other No kidney [...] has no apparent deficits with short or group home memory. She has appropriate fund of knowledge [...] on filedocumented as of this encounter Results XR Ankle [...] [address] | [place] | [phone] | | [facility] | | [address] | | | - IMAGING | | | | + + + + + documented in this encounter Visit Diagnoses + + | Diagnosis | + + | Left ankle pain - Primary Pain in joint, ankle and foot | + + documented in this encounter
--- OUTSIDE RECORDS SUMMARY | ~2019-07-24 | XMS | Encounter Summary ---
Demographics + + + | Address | [address] | | | [place] [address] | + + + | Home Phone [...] | Author | [facility] | | | and Clarkeana | + + + | Organization | [facility] | | | [...] | | | | | [place] [address] | | + + + + + | Valentín Saleh | ECON | [address] | | | | | [place] [address] | | + + + + + | Roberto Carlos Lennon | LEVI | [place] | | + + + + + Care Team Providers + +------+ + | Care Electrician Shop Name | Role | Phone | + +------+ + PCP | Unavailable | + +------+ + Encounter Details +--------+ + + + + | Date | Type | Department | Care Team | Description | +--------+ + + + + | 11/11/ | Hospital | [facility] | | | | 2006 | Encounter | MED CTR XRAY [address] | | | | | | [place] | | | | | | [place] [address] | | | | | | [phone] | | | +--------+ + + + [...]
--- OUTSIDE RECORDS SUMMARY | ~2019-07-24 | XMS | Encounter Summary ---
Demographics + + + | Address | [address] | | | [place] [address] | + + + | Home Phone [...] | [facility] | | | and [place]ana | + + + | Organization | [facility] | | [...] | | | | | [place] [address] | | + + + + + | Valentín Saleh | ECON | [address] | | | | | [place] [address] | | + + + + + | Roberto Carlos Lennon | LEVI | Unknown | | + + + + + Care Team Providers + +------+ + | Care Breakfast Cook Name | Role | Phone | [...] | Francois Tello MD | [address] | | | | | (shortness | [address] | [place], | | | | | of breath) | [address] | [place] | | | | | Procedures | [place] | [address] | | | | | ECHO | [place], [place] | Phone: | | | | | Complete | [address] | [phone] | | | | | | Phone: | Fax: | | | | | | [phone] | [phone] | | | | | | Fax: | | | | | | | [phone] | | +--------+--------+ + + + + [...] | Francois Tello MD | [address] | | | | | (shortness | [address] | [place], | | | | | of breath) | [address] | [place] | | | | | Procedures | [place] | [address] | | | | | ECHO | [place], [place] | Phone: | | | | | Complete | [address] | [phone] | | | | | | Phone: | Fax: | | | | | | [phone] | [phone] | | | | | | Fax: | | | | | | | [phone] | | +--------+--------+ + + + + Encounter Details +--------+ + + + + | Date | Type | Department | Care Team | Description | +--------+ + + + + | 11/25/ | Hospital | [facility] | Francois Pascal, | SOB (shortness of | | 2015 | Encounter | MED CTR ECHO [address] | MD [address] | breath) | | | | [address] [place] | [address] [place], | | | | | [place] [address] | [place] [address] | | | | | [phone] | [phone] | | | | | | | [...] | | mellitus) ([facility]) | DINNER | | | | | [...] Performed At | + + + | [facility] | [facility] | | STUDY DATE: 11/25/2014 PATIENT NAME: Alyson Lennon : | [facility] | | 1930 PCP: Francois Pascal MD | [facility] | | CLINICAL HISTORY/DIAGNOSIS: SOB, HTN [...] | | | PhD FACC 11/25/2014 11:43 Equipment Operation Instructor: Rolando | | | Zilliox, RDCS, RVT, RDMS | | + + + + + + + + | Performing | Address | City/State/Zipcode | Phone Number | | Organization | | | | + + + + + | [address] | [address] | [place], [place] | [phone] | | [facility] | | [address] | | | - IMAGING | | [...]
--- OUTSIDE RECORDS SUMMARY | ~2019-07-24 | XMS | Clinical Summary ---
Demographics + + + | Address | [address] | | | [place] [address] | + + + | Home Phone [...] + + | Author | [facility] | | | and [place] | + + + | Organization | [facility] | | | [...] + | Valentín Saleh | ECON | [address] | | | | | [place] [address] | | + + + + + | Roberto Carlos Lennon | LEVI | [place] | | + + + + + Care Team Providers + +------+ + | Care Numerical Control Machine Machinist Name | Role | Phone | + [...] + + + + | Estrogens | | | | Patient can't | | [...] TWICE A DAY | tablet | | / | | e | | tablet | [...] | | | | | | | -153 = 2 | | | | | | | | [id number] = 4 | | | | | [...] + + + | Overview: Problem list retail account specialist utility | + + + + + | Left ankle pain | 07/30/2014 | + + + | Squamous carcinoma | 12/05/2012 | + + + | "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 | + + + + + | Overview: Problem list retail account specialist utility | + + + + + | Preventative health care | 03/23/2012 | + + + + + | Overview: [facility]:03/23/2002normal except for redundancy and | [...] + + | Coronary artery disease involving gakona coronary artery of | | | gakona heart without angina pectoris | | + [...] + + + | Overview: Problem list retail account specialist utility | + + Encounters +--------+ + + + + | Date | Type | Specialty | Care Team | Description | +--------+ + + + + | 07/17/ | Refill | Family Medicine | Francois Pascal, | Medication Refill | | 2019 | | | MD | | +--------+ + + + + | 05/21/ | Refill | Family Medicine | Francois Pascal, | Medication Refill | | 2019 | | | MD | | +--------+ + + + + | 05/13/ | Telephone | Cardiology | Stephenie Paul, | Appointment | | 2019 | | | MD [...] | | TRIVALENT(PED/ADOL/A | | | | STEPHENIE SORIANO | | | + + + + | INFLUENZA QUADR | 12/25/2014, 01/03/2014 | | | W/PRES | | | | (PED/ADOL/ADULT) | | | | MULTIDOSE | | | + + + + | INFLUENZA TRIV | 01/19/2012, 2010, 12/24/2008, | | | W/PRES(PED/ADOL/ADUL | 12/27/2007, 12/27/2006, 01/17/2006, | | | T),MULTIDOSE | 12/24/2004 | | + + + + | INFLUENZA, [id number], | 01/19/2012, 2010, 12/24/2008, | | | [...] | Other | | family history of Airam's Disease | + + +------+ + | [...] | + + Last Filed Vital Signs + [...] + + + + Plan of Treatment + + + + + | Health Maintenance | Due Date | Last Done | Comments | + + + + + | Vaccine: Zoster (2 | | 11/18/2005 | | | of 3) | 6 | | | + + + + + | Adult Annual | | | | | Wellness Visit | 5 | | | + + + + + | Vaccine: | | 11/18/2005 | | | Dtap/Tdap/Td (2 - | 6 | | | | Td) | | | | + + + + + | Diabetic Foot Exam | | 02/17/2016, 02/17/2016 | | | | 7 | | | + + + + + | Breast Cancer | | 03/06/2015, 03/06/2014, | | | Screening | 7 | 03/06/2013, Additional history | | | | | exists | | + + + + + | Diabetic Eye Exam | | 02/17/2016 | | | | 8 | | | + + + + + | Hemoglobin A1c | | 10/10/2018, 10/03/2017, | | | Screening | 0 | 08/19/2016, Additional history | | | | | exists | | + + + + + | Vaccine: Influenza | Completed | 01/05/2019, 02/01/2018, | | | | | 01/21/2017, Additional history | | | | | exists [...] | 03/06/ | 04.038 | | - [id number]: Qty: 1 | c | Hip | SYNTHES - | | 2025 | .295S | | on 07/10/2016 by Chelsey, | | | SYNT | | | / | | Ru Mckee MD at [facility] | | | | | | /[id number] | | [facility] | | | | | | [facility] | | CENTER | | | | | | | + +--------+--------+ +--------+--------+--------+ | Nail Fem Tfna St 125d [id number] | Nail | Left: | JJHCS DEPUY | | 06/04/ | 04.037 | | L - [id number]: Qty: | | Hip | SYNTHES - | | 2024 | .215S | | 1 on 07/10/2016 by Chelsey, | | | SYNT | | | / | | Ru Mckee MD at [facility] | | | | | | /[id number] | | [facility] | | | | | | 57 | | CENTER | | | | | | | + +--------+--------+ +--------+--------+--------+ | Screw Im Jenna Slf-Tp F/T | Screw | Left: | [facility] DEPUY | | | 04.005 | | 5x32mm - [id number]: | | Hip | SYNTHES - | | | .522 / | | Qty: 1 on 07/10/2016 by | | | SYNT | | | / | | Ru Barbosa MD at | | | | | | | | [facility] | | | | | | | | [facility] | | | | | [...] + +-------+--------+ +--------+--------+--------+ | Screw Im Jenna Slf-Tp F/T | Screw | Left: | [facility] DEPUY | | | 04.005 | | 5x46mm - [id number]: | | Hip | SYNTHES - | | | .536 / | | Qty: 1 on 07/10/2016 at [facility] | | | SYNT | | | / | | [facility] | | | | | | | | [facility] [place] | | | | | | | + +-------+--------+ +--------+--------+--------+ Results Not on filefrom Last 3 Months [...] + +--------+ | MEDICARE | MEDICA | [id number] | | [phone] | | Medica | | | RE | | 997-Pr | 5 | | re | | | PART A | | esent | | | | | | AND B | | | | | | + +--------+ +--------+ + +--------+ | MODA | MODA | [id number] | 05/06/19 | [phone] | [address] | Indemn | | | HEALTH | | 08-Pre | 9 | [phone] | ity | | | MDCR | | sent | | [facility] | | | | [place] | | | | [place] [address] | | + +--------+ +--------+ + +--------+ [...] al/Fam | | 1931 | [phone] | [place] [address] | | | ian | | | 1 (Home) | | + +--------+ +--------+ + + Advance Directives + + + + + | Type | Date Recorded | Patient | Explanation | | | | Specialty Transformer Assembler | | + + + + + | Power of | | | | | Or Rn | | | | + + + [...]
--- OUTSIDE RECORDS SUMMARY | ~2019-07-24 | XMS | Encounter Summary ---
Demographics + + + | Address | [address] | | | [place] [address] | + + + | Home Phone [...] | Author | [facility] | | | and [place] | + + + | Organization | [facility] | | [...] | | | | | [place] [address] | | + + + + + | Valentín Saleh | ECON | [address] | | | | | [place] [address] | | + + + + + | Roberto Carlos Lennon | LEVI | Unknown | | + + + + + Care Team Providers + +------+ + | Care Paper Sorter Name | Role | Phone | + +------+ + | Francois Pascal MD | PCP | | + +------+ + Encounter Details +--------+---------+ + + + | Date | Type | Department | Care Team | Description | +--------+---------+ + + + | 10/31/ | Office | [facility] | Francois Pascal, | Diabetes (HCC) | | 2014 | Visit | MED CTR DIABETES | [address] | (Primary Dx) | | | | EDUCATION [address] | [address] [place], | | | | | [place], | [place] [address] | | | | | [place] [address] | [phone] | | | | | [phone] | | | | | | | [...] encounter Progress Notes Chrissy Muhammad RN - 10/31/2013 2:48 PM Darshan forgot [...]
--- OUTSIDE RECORDS SUMMARY | ~2019-07-24 | XMS | Encounter Summary ---
Demographics + + + | Address | [address] | | | [place] [address] | + + + | Home Phone [...] Author | [facility] | | | and [place] | + + + | Organization | [facility] | | [...] | | | | | [place] [address] | | + + + + + | Valentín Saleh | ECON | [address] | | | | | [place] [address] | | + + + + + | Roberto Carlos Lennon | LEVI | Unknown | | + + + + + Care Team Providers + +------+ + | Care Cutlery Grinder Name | Role | Phone | + +------+ + | Franocis Pascal MD | PCP | | + [...] + + | 10/21/ | Office | [facility] | Francois Pascal, | UTI (lower urinary | | 2015 | Visit | MEDICINE [address] | [address] | tract infection) | | | | Street [place] | [address] [place], | (Primary Dx); | | | | [place] [address] | [place] [address] | Cerebral contusion | | | | [phone] | [phone] | without loss of | | | | | | consciousness, | | | | | | unspecified | | | | | | laterality, sequela | | | | | | (HCC) [...]
--- OUTSIDE RECORDS SUMMARY | ~2019-07-24 | XMS | Encounter Summary ---
Demographics + + + | Address | [address] | | | [place] [address] | + + + | Home Phone [...] Author | [facility] | | | and [place] | + + + | Organization | [facility] | [...] | | | | | [place] [address] | | + + + + + | Valentín Saleh | ECON | [address] | | | | | [place] [address] | | + + + + + | Roberto Carlos Lennon | LEVI | Unknown | | + + + + + Care Team Providers + +------+ + | Care Blackjack Dealer Name | Role | Phone | [...] | 01/11/ | Refill | [facility] [place] [facility] | Francois Pascal, | Medication Refill | | 2015 | | MEDICINE [facility] [address] | [address] | | | | | [facility] | [address] [place], | | | | | [place] [address] | [place] [address] | | | | | [phone] | [phone] | | | | | | | [...]
--- OUTSIDE RECORDS SUMMARY | ~2019-07-24 | XMS | Encounter Summary ---
Demographics + + + | Address | [address] | | | [place] [address] | + + + | Home Phone [...] + + | Author | [facility] | | | and [place] | + + + | Organization | [facility] | | [...] | | | | | [place] [address] | | + + + + + | Valentín Saleh | ECON | [address] | | | | | [place] [address] | | + + + + + | Roberto Carlos Lennon | LEVI | Unknown | | + + + + + Care Team Providers + +------+ + | Care Insurance Service Representative Name | Role | Phone | [...] + | 03/06/ | Telephone | [facility] | Francois Pascal, | Results | | 2012 | | MEDICINE [address] | MD [address] | | | | | [facility] | [address] [place], | | | | | [place] [address] | [place] [address] | | | | | [phone] | [phone] | | | | | | | [...]
--- OUTSIDE RECORDS SUMMARY | ~2019-07-24 | XMS | Encounter Summary ---
Demographics + + + | Address | [address] | | | [place] [address] | + + + | Home Phone [...] | Author | [facility] | | | and lCarkeana | + + + | Organization | [facility] | [...] | | | | | [place] [address] | | + + + + + | Valentín Saleh | ECON | [address] | | | | | [place] [address] | | + + + + + | Roberto Carlos Lennon | LEVI | Unknown | | + + + + + Care Team Providers + +------+ + | Care Solar Project Engineer Name | Role | Phone | + +------+ + | Francois Pascal MD | PCP | | + +------+ + Encounter Details +--------+ + + + + | Date | Type | Department | Care Team | Description | +--------+ + + + + | 03/05/ | [facility] | [facility] | Francois Pascal, | | | 2012 | Encounter | MED CTR XRAY [address] | [address] | | | | | [place] | [address] [place], | | | | | [place] [address] | [place] [address] | | | | | [phone] | [phone] | | | | | | | [...] Units by | | 0 | | 04/14/201 | | (VITAMIN D-2) 50,000 | mouth [...] Performed At | + + + | [facility] | [place] | | Department [address] [facility] | [facility] | | [ rep [facility] [place]] [ rep [facility] | | [facility]] Signed | - IMAGING | | | | | Patient Name: ALYSON LENNON Physician: | | | ALBINA : 1930 Age: 82 Sex: F Unit #: [id number] | | | Exam Date: 03/05/13 Location: [facility] [place] | | | Report #: [id number] Page: | | | %(RAD)RES..mtdd.print.filter("pg") of %(RAD) | | | RES..mtdd.print.filter("tpg") | | | | | | Accession Number: [id number] | | | DIGITAL MAMMOGRAM WITH COMPUTER ASSISTED DIAGNOSIS AND TOMOSYNTHESIS | | | CLINICAL HISTORY: SCREENING. FINDINGS: | | | Digital MLO and CC views of the breasts are compared to 2010 and | | | 2011. Breast parenchyma is of scattered density. Pattern [...] Transcribed Date/Time: 03/06/2013 08:40 | | | Assembler Finger Buffs: <<Signature on File>> | | | | | | Rafi De La Fuente MD03/06/13 1021 <Electronically signed by | | | Rafi De La Fuente MD> Rafi De La Fuente MD 03/06/13 | | | 0835 Assembler Finger Buffs: Backup Circle [id number]/31/13 0870 | | | | | + + + + + + + + | Performing | Address | City/State/Zipcode | Phone Number | | Organization | | | | + + + + + | [address] | [address] | [place] | [phone] | | [facility] | | [address] | | | - IMAGING | | | | + + + + + documented in this encounter Visit Diagnoses Not on filedocumented in this encounter
--- OUTSIDE RECORDS SUMMARY | ~2019-07-24 | XMS | Encounter Summary ---
Demographics + + + | Address | [address] | | | [place] [address] | + + + | Home Phone [...] Author | [facility] | | | and [place] | + + + | Organization | [facility] | | [...] | | | | | [place] [address] | | + + + + + | Valentín Saleh | ECON | [address] | | | | | [place] [address] | | + + + + + | Roberto Carlos Lennon | LEVI | Unknown | | + + + + + Care Team Providers + +------+ + | Care Inspector Tester Sorter Name | Role | Phone | [...] | instability | [address] | [place] | | | | n | [address] | [address] | [place], | | | | | (ICD-10-CM) | [place] | [place] [address] | | | | | - [address] | [place] | Phone: | | | | | (ICD-9-CM) - | [address] | [phone] | | | | | Gait | Phone: | Fax: | | | | | instability | [phone] | [phone] | | | | | Procedures | Fax: | | | | | | pt eval | [phone] | | +--------+ + + + + + Encounter Details +--------+---------+ + + + | Date | Type | Department | Care Team | Description | +--------+---------+ + + + | 02/13/ | Office | [facility] | Francois Pascal, | Impaired functional | | 2015 | Visit | MED CTR THERAPY PT | MD [address] | mobility, balance, | | | | OP [address] | [address] [place], | gait, and endurance | | | | [place], [place] | [place] [address] | (Primary Dx); | | | | [address] | [phone] | Posture imbalance; | | | | [phone] | | Left ankle pain | | | | | Kely Quinn, PT | | | | | | [address] | | | | | | [place] | | | | | | [address] | | | | | | | [...] 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, 2-4/10 pain Patient's Primary Functional Goal [...] G-Codes Functional Assessment Tool Used: DGI Score: 16 Functional Limitation: Mobility: Walking and moving around Mobility: Walking and Moving Around Current Status (G8978): At least 20 percent but less th an 40 percent impaired, limited or restricted Mobility: Walking and Moving Around Goal Status (G8979): At least 20 percent but less than 40 percent impaired, limited or restricted Treatment Plan/Interventions: 92766 - PT Evaluation 57070 - PT Re-Evaluation 79882 - Therapeutic Exercise 64084 - Neuromuscular Reeducation 74762 - Gait Training 34979 - Therapeutic Activities 92061 - Manual Therapy 28639 - Self Care/Home Management Requested # of Visits: 24 2x/week for 12 weeks Certification From: 02/13/2015 Certification To: 05/08/2015 Electronically signed by: Kely Green PT, 02/13/2015 13:25 Patient Name: Alyson Lennon/: 1930/ Kely Ryan PT - 02/13/2015 8:24 AM PST [facility] CTR THERAPY PT OP [address] [place] [address] Physical Therapy Progress Assessment Date: 02/13/2015 Patient Information Patient Name: Alyson Lennon Date of : 1930 Age: 84 y.o. Encounter Diagnoses Code Name Primary? 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 Today's Treatment Start Time: 814 Stop time: 09 Duration: 45 minutes Timed Treatment Codes: 45 [...]
--- OUTSIDE RECORDS SUMMARY | ~2019-07-24 | XMS | Encounter Summary ---
Demographics + + + | Address | [address] | | | [place] [address] | + + + | Home Phone [...] + | Author | [facility] | | | and [place] | + + + | Organization | [facility] [...] | | | | | [place] [address] | | + + + + + | Valentín Saleh | ECON | [address] | | | | | [place] [address] | | + + + + + | Roberto Carlos Lennon | LEVI | Unknown | | + + + + + Care Team Providers + +------+ + | Care Public Opinion Survey Taker Name | Role | Phone | [...] | [address] | [address] [place] | (MODERATE) (Primary | | | | [place], [place] | [address] [place], [place] | Dx) | | | | [address] | [address] | | | | | [phone] | | | +--------+ + + + [...] this encounter Progress Zaynab Castellanos RN - 11/14/2012 5:15 PM [facility] for nephrology appt f/u expected late Se pt. Sent to [facility] docu mented in this encounter Plan of Treatment Not [...] [address] | [place] | [phone] | | [facility] | | [address] | | | - LABORATORY | | | | + + + + + | [address] | [address] | [place] | | | [facility] | | [address], [facility] | | | - [...] + | [address] | [address] | [place], [place] | [phone] | | [facility] | | [address] | | | - LABORATORY | | | | + + + + + | [address] | [address] | [place], [place] | | | [facility] | | [address], [facility] | | | - LABORATORY | | | | + + + + + documented in this encounter Visit Diagnoses + + | Diagnosis | + + | CHRONIC KIDNEY DISEASE STAGE III (MODERATE) - Primary Chronic kidney disease, Stage | | III (moderate) | + + documented in this encounter"
--- OUTSIDE RECORDS SUMMARY | ~2019-07-24 | XMS | Encounter Summary ---
Demographics + + + | Address | [address] | | | [place] [address] | + + + | Home Phone [...] | Author | [facility] | | | and [place] | + + + | Organization | [facility] | [...] | | | | | [place] [address] | | + + + + + | Valentín Saleh | ECON | [address] | | | | | [place] [address] | | + + + + + | Roberto Carlos Lennon | LEVI | Unknown | | + + + + + Care Team Providers + +------+ + | Care Loom Stop Checker Name | Role | Phone | [...] + | 11/22/ | Telephone | [facility] [place] [facility] | Francois Pascal, | Imaging Only | | 2017 | | [facility] | [address] | | | | | [address] | [address] [place] [place], | | | | | [place] | [place] [address] | | | | | [address] | [phone] | | | | | [phone] | | | +--------+ + + + [...]
--- OUTSIDE RECORDS SUMMARY | ~2019-07-24 | XMS | Encounter Summary ---
Demographics + + + | Address | [address] | | | [place] [address] | + + + | Home Phone [...] Author | [facility] | | | and [place] | + + + | Organization | [facility] | [...] | | | | | [place] [address] | | + + + + + | Valentín Saleh | ECON | [address] | | | | | [place] [address] | | + + + + + | Roberto Carlos Lennon | LEVI | [place] | | + + + + + Care Team Providers + +------+ + | Care Hat Cleaner Name | Role | Phone | + +------+ + PCP | Unavailable | + +------+ + Encounter Details +--------+ + + + + | Date | Type | Department | Care Team | Description | +--------+ + + + + | 01/14/ | Hospital | [facility] | Francois Pascal, | | | 2009 | Encounter | MED CTR LABORATORY | [address] | | | | | [address] [place] | [address] [place], | | | | | [place] | [place] [address] | | | | | [address] | [phone] | | | | | [phone] | | | +--------+ + + + [...]
--- OUTSIDE RECORDS SUMMARY | ~2019-07-24 | XMS | Encounter Summary ---
Demographics + + + | Address | [address] | | | [place] [address] | + + + | Home Phone [...] | Author | [facility] | | | and [place] | + + + | Organization | [facility] | | | and [place] | + + + | Address | Unknown | + + + | Phone | Unavailable | + + + Support + + + + + | Name | Relationship | Address | Phone | + + + + + | Sigrid Lennon | ECON | [address] | | | | | [place] [address] | | + + + + + | Valentín Saleh | ECON | [id number] | | | | | [place] [address] | | + + + + + | Roberto Carlos Lennon | LEVI | Unknown | | + + + + + Care Team Providers + +------+ + | Care Torch Shearer Name | Role | Phone | + +------+ + | Francois Pascal MD | PCP | | + +------+ + Encounter Details +--------+ + + + + | Date | Type | Department | Care Team | Description | +--------+ + + + + | 09/11/ | Hospital | [facility] | Francois Pascal, | ARTHRITIS, CHRONIC; | | 2012 | Encounter | MED CTR LABORATORY | [address] | CHRONIC KIDNEY | | | | [address] [place] | [address], | DISEASE STAGE III | | | | [place], [place] | [place] [address] | (MODERATE); DM | | | | [address] | [phone] | (diabetes mellitus) | | | | [phone] | | (HCC) | +--------+ + + [...] + | [facility] | [address] | [place], [place] | [phone] | | [facility] | | [address] | | | - LABORATORY | | | | + + + + + | [facility] | [address] | [place], [place] | | | [facility] | | [address] | | | - [...] + | [facility] | [address] | [place], [place] | [phone] | | [facility] | | [address] | | | - LABORATORY | | | | + + + + + | [facility] | [address] | [place], [place] | | | [facility] | | [address], [facility] | | | [...] + | [facility] | [address] | [place] | [phone] | | [facility] | | [address] | | | - LABORATORY | | | | + + + + + | [facility] | [address] | [place], [place] | | | [facility] | | [address] | | | - [...] 3.8 | 3.2 - 5.0 gm/dL | [facility] [...] 39 (L)Comment: For | >60 mL/min/A | [facility] [...] + | [facility] | [address] | [place], [place] | [phone] | | [facility] | | [address] | | | - LABORATORY | | | | + + + + + | [facility] | [address] | [place], [place] | | | [facility] | | [address] [place] [address] | | | - LABORATORY | | [...] | [facility] | | | | [place] [facility] | | MEDICAL | | | [...] + | [facility] | [address] | [place], [place] | [phone] | | [facility] | | [address] | | | - LABORATORY | | | | + + + + + | [facility] | [address] | [place], [place] | | | [facility] | | [address] | | | - LABORATORY | [...]
--- OUTSIDE RECORDS SUMMARY | ~2019-07-24 | XMS | Encounter Summary ---
Demographics + + + | Address | [address] | | | [place] [address] | + + + | Home Phone [...] Author | [facility] | | | and [place] | + + + | Organization | [facility] [...] | | | | | [place] [address] | | + + + + + | Valentín Saleh | ECON | [phone] | | | | | [place] [address] | | + + + + + | Roberto Carlos Lennon | LEVI | [place] | | + + + + + Care Team Providers + +------+ + | Care Cafe Manager Name | Role | Phone | + +------+ + PCP | Unavailable | + +------+ + Encounter Details +--------+ + + + + | Date | Type | Department | Care Team | Description | +--------+ + + + + | 05/06/ | Hospital | [facility] | Jason Hernandez, | | | 2009 | Encounter | MED CTR XRAY [address] | PA-C [address] | | | | | [place] | [address] [place] | | | | | [place] [address] | [place] [address] | | | | | [phone] | [phone] | | | | | | | [...]
--- OUTSIDE RECORDS SUMMARY | ~2019-07-24 | XMS | Encounter Summary ---
Demographics + + + | Address | [address] | | | [place] [address] | + + + | Home Phone [...] | [facility] | | | and [place] | + + + | Organization | [facility] | [...] | | | | | [place] [address] | | + + + + + | Valentín Saleh | ECON | [address] | | | | | [place] [address] | | + + + + + | Roberto Carlos Lennon | LEVI | [place] | | + + + + + Care Team Providers + +------+ + | Care Customer Experience Intern Name | Role | Phone | + +------+ + PCP | Unavailable | + +------+ + Encounter Details +--------+ + + + + | Date | Type | Department | Care Team | Description | +--------+ + + + + | 08/08/ | Hospital | [facility] | | | | 2007 | Encounter | MED CTR MP INTRA OP | | | | | | [address] | | | | | | [place] | | | | | | [address] | | | | | | [phone] | | | +--------+ + + + [...]
--- OUTSIDE RECORDS SUMMARY | ~2019-07-24 | XMS | Encounter Summary ---
Demographics + + + | Address | [address] | | | [place] [address] | + + + | Home Phone [...] | Author | [facility] | | | and [place] | + + + | Organization | [facility] | [...] | | | | | [place] [address] | | + + + + + | Valentín Saleh | ECON | [phone] | | | | | [place] [address] | | + + + + + | Roberto Carlos Lennon | LEVI | Unknown | | + + + + + Care Team Providers + +------+ + | Care Vending Machine Repairer Name | Role | Phone | [...] + | 05/28/ | Telephone | [facility] | Francois Pascal, | Results | | 2016 | | MEDICINE [address] | MD [address] | | | | | [facility] | [address], | | | | | [place] [address] | [place] [address] | | | | | [phone] | [phone] | | | | | | | [...]
--- OUTSIDE RECORDS SUMMARY | ~2019-07-24 | XMS | Encounter Summary ---
Demographics + + + | Address | [address] | | | [place] [address] | + + + | Home Phone [...] Author | [facility] | | | and [place] | + + + | Organization | [facility] | | [...] | | | | | [place] [address] | | + + + + + | Valentín Saleh | ECON | [phone] | | | | | [place] [address] | | + + + + + | Roberto Carlos Lennon | LEVI | Unknown | | + + + + + Care Team Providers + +------+ + | Care Security Door Installer Name | Role | Phone | [...] Refill | | 2013 | | MEDICINE [place] | [address] | | | | | [address] | [address], | | | | | [place] | [place] [address] | | | | | [address] | [phone] | | | | | [phone] | | | +--------+--------+ + + + [...]
--- OUTSIDE RECORDS SUMMARY | ~2019-07-24 | XMS | Encounter Summary ---
Demographics + + + | Address | [address] | | | [place] [address] | + + + | Home Phone [...] Author | [facility] | | | and [place] | + + + | Organization | [facility] | [...] | | | | | [place] [address] | | + + + + + | Valentín Saleh | ECON | [phone] | | | | | [place] [address] | | + + + + + | Roberto Carlos Lennon | LEVI | Unknown | | + + + + + Care Team Providers + +------+ + | Care Educational Psychologist Name | Role | Phone | + +------+ + | Francois Pascal MD | PCP | | + +------+ + Encounter Details +--------+ + + + + | Date | Type | Department | Care Team | Description | +--------+ + + + + | 01/09/ | Hospital | [facility] | Francois Pascal, | Essential | | 2015 | Encounter | MED CTR LABORATORY | [address] | hypertension; DM | | | | [address] [place] | [address], | (diabetes mellitus); | | | | [place], [place] | [place] [address] | CHRONIC KIDNEY | | | | [address] | [phone] | DISEASE STAGE III | | | | [phone] | | (MODERATE); CKD | | | [...] | | | | | | mellitus) ([facility]) | | | | | | [...] [address] | [place] | [phone] | | [facility] | | [address] | | | - LABORATORY | | [...] (H) | 7 - 18 mg/dL | [place] | | | | | | [facility] | | | | | | MEDICAL | | | | | | CENTER - | | | | | | LABORATORY | | + + + + + + | Creatinine | 1.37 (H) | 0.60 - 1.30 | [place] | | | | | mg/dL | [facility] | | | | | | MEDICAL | | | | | | CENTER - | | | | | | LABORATORY | | + + + + + + | eGFR if not | 37 (L)Comment: | >=60 | [place] | | | | GLOMERULAR FILTRATION | mL/min/1.73m2 | [facility] | | | [place] | RATE,ESTIMATED | | MEDICAL | | | | mL/min/1.92n4Fwqq than | | CENTER - | | [...] ST. | [address] | [place], [place] | [phone] | | [facility] | | [address] | | | - LABORATORY | | [...] [address] | [place] | [phone] | | [facility] | | [address] | | | - LABORATORY | | [...]
--- OUTSIDE RECORDS SUMMARY | ~2019-07-24 | XMS | Encounter Summary ---
Demographics + + + | Address | [address] | | | [place] [address] | + + + | Home Phone [...] Author | [facility] | | | and [place] | + + + | Organization | [facility] [...] | | | | | [place] [address] | | + + + + + | Valentín Saleh | ECON | [address] | | | | | [place] [address] | | + + + + + | Roberto Carlos Lennon | LEVI | Unknown | | + + + + + Care Team Providers + +------+ + | Care Battery Stacker Name | Role | Phone | + [...] Description | +--------+--------+ + + + | 02/24/ | Refill | [facility] [place] [facility] | Francois Pascal, | Medication Refill | | 2014 | | MEDICINE [facility] | [address] | | | | | [facility] | [address], | | | | | [place] [address] | [place] [address] | | | | | [phone] | [phone] | | | | | | | [...]
--- OUTSIDE RECORDS SUMMARY | ~2019-07-24 | XMS | Encounter Summary ---
Demographics + + + | Address | [address] | | | [place] [address] | + + + | Home Phone [...] Author | [facility] | | | and [place] | + + + | Organization | [facility] | | | [...] | | | | | [place] [address] | | + + + + + | Valentín Saleh | ECON | [address] | | | | | [place] [address] | | + + + + + | Roberto Carlos Lennon | LEVI | Unknown | | + + + + + Care Team Providers + +------+ + | Care Strategic Partner Development Manager Name | Role | Phone [...] STAGE III | | | | [address] | [address] [place] | (MODERATE) (Primary | | | | [place], [place] | [address] [place], [place] | Dx) | | | | [address] | [address] | | | | | [phone] | | | +--------+ + + + [...] on filedocumented as of this encounter Results Parathyroid Hormone, Intact (12/02/2014 9:10 AM PDT) + +-------+ + + + | Component | Value | Ref Range | Performed | Pathologist | | | | | At | Signature | + +-------+ + + + | PTH Intact | 43 | 12 - 88 pg/mL | [facility] | | | | | | [facility] [...] [address] | [place] | [phone] | | [facility] | | [address] | | | - LABORATORY | | [...] 7 - 18 mg/dL | [facility] | | | | | | [facility] | | | | | | MEDICAL | | | | | | CENTER - | | | | | | LABORATORY | | + + + + + + | Creatinine | 1.37 (H) | 0.60 - 1.30 | [place] | | | | | mg/dL | [facility] | | | | | | MEDICAL | | | | | | CENTER - | | | | | | LABORATORY | | + + + + + + | eGFR if not | 37 (L)Comment: | >=60 | [place] | | | | GLOMERULAR FILTRATION | mL/min/1.73m2 | [facility] | | | [place] | RATE,ESTIMATED | | MEDICAL | | | | mL/min/1.88i7Fydd than | | CENTER - | | [...] + | [facility] | [address] | [place] | [phone] | | [facility] | | [address] | | | - LABORATORY | | | | + + + + + documented in this encounter Visit Diagnoses + + | Diagnosis | + + | CHRONIC KIDNEY DISEASE STAGE III (MODERATE) - Primary Chronic kidney disease, Stage | | III (moderate) | + + documented in this encounter"
--- OUTSIDE RECORDS SUMMARY | ~2019-07-24 | XMS | Encounter Summary ---
Demographics + + + | Address | [address] | | | [place] [address] | + + + | Home Phone [...] Author | [facility] | | | and [place] | + + + | Organization | [facility] | [...] | | | | | [place] [address] | | + + + + + | Valentín Saleh | ECON | [phone] | | | | | [place] [address] | | + + + + + | Roberto Carlos Lennon | LEVI | [place] | | + + + + + Care Team Providers + +------+ + | Care Clinical Nurse Reviewer Name | Role | Phone | + +------+ + PCP | Unavailable | + +------+ + Encounter Details +--------+ + + + + | Date | Type | Department | Care Team | Description | +--------+ + + + + | 11/25/ | Hospital | [facility] | | | | 2006 | Encounter | MED CTR XRAY [address] | | | | | | [place] | | | | | | [place] [address] | | | | | | [phone] | | | +--------+ + + + [...]
--- OUTSIDE RECORDS SUMMARY | ~2019-07-24 | XMS | Encounter Summary ---
Demographics + + + | Address | [address] | | | [place] [address] | + + + | Home Phone [...] + | Author | [facility] | | | and [place] | + + + | Organization | [facility] | [...] + | Valentín Saleh | ECON | [address] | | | | | [place] [address] | | + + + + + | Roberto Carlos Lennon | LEVI | [place] | | + + + + + Care Team Providers + +------+ + | Care Land Leasing Examiner Name | Role | Phone | + +------+ + PCP | Unavailable | + +------+ + Encounter Details +--------+ + + + + | Date | Type | Department | Care Team | Description | +--------+ + + + + | 09/20/ | Hospital | [facility] | | | | 2000 | Encounter | MED CTR LABORATORY | | | | | | [address] | | | | | | [place] | | | | | | [address] | | | | | | [phone] | | | +--------+ + + + [...]
--- OUTSIDE RECORDS SUMMARY | ~2019-07-24 | XMS | Encounter Summary ---
Demographics + + + | Address | [address] | | | [place] [address] | + + + | Home Phone [...] Author | [facility] | | | and [place] | + + + | Organization | [facility] | [...] | | | | | [place] [address] | | + + + + + | Valentín Slaeh | ECON | [address] | | | | | [place] [address] | | + + + + + | Roberto Carlos Lennon | LEVI | Unknown | | + + + + + Care Team Providers + +------+ + | Care Job Development Specialist Name | Role | Phone | [...] | 10/17/ | Emergency | [facility] | Nik Olea, | Confusion (Primary | | 2014 | | MED CTR EMERGENCY | MD [address] | Dx); Hyponatremia; | | | | CENTER [address] | [facility] [place] | Dehydration; Acute | | | | [place] | [place] [address] | on chronic renal | | | | [address] | [phone] | insufficiency; UTI | | | | [phone] | | (lower urinary tract | | [...] in this encounter Discharge Instructions Instructions Nik Olae MD - 10/17/2014Stop your Lasix for now [...] through Care Everywhere.BLADDER INFECTI ON, 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 | [place] | [phone] | | [facility] | | [address] | | | - LABORATORY | | [...] - 1.030 | [facility] | | | [place], | | | [facility] | | [...] [address] | [place] | [phone] | | [facility] | | [address] | | | - LABORATORY | | [...] [address] | [place] | [phone] | | [facility] | | [address] | | | - LABORATORY | | [...] + | [facility] | [address] | [place] | [phone] | | [facility] | | [address] | | | - LABORATORY | | [...] [address] | [place] | [phone] | | [facility] | | [address] | | | - LABORATORY | | [...] 2.12 (H) | 0.60 - 1.30 | [facility] | | | | | mg/dL | [facility] | | | | | | MEDICAL | | | | | | CENTER - | | | | | | LABORATORY | | + + + + + + | eGFR if not | 22 (L)Comment: | >=60 | [facility] | | | | GLOMERULAR FILTRATION | mL/min/1.73m2 | [facility] | | | BULGAR[place] | RATE,ESTIMATED | | MEDICAL | | | | mL/min/1.45l9Dehe than | | CENTER - | | [...] + | [facility] | [address] | [place] | [phone] | | [facility] | | [address] | | | - LABORATORY | | | | + + + + + CBC with Differential (10/17/2014 3:36 PM PDT) + + + + + + | Component | Value | Ref Range | Performed | Pathologist | | | | | At | Signature | + + + + + + | WBC | 13.3 (H) | 4.0 - 11.0 K/uL | [facility] | | | | | | [facility] | | | | | | MEDICAL | | | | | | CENTER - | | | | | | LABORATORY | | + + + + + + | RBC | 4.24 | 3.70 - 5.20 | [facility] | | | | | M/uL | [facility] | | | | [...] [address] | [place] | [phone] | | [facility] | | [address] | | | - LABORATORY | | [...]
--- OUTSIDE RECORDS SUMMARY | ~2019-07-24 | XMS | Encounter Summary ---
Demographics + + + | Address | [address] | | | [place] [address] | + + + | Home Phone [...] | [facility] | | | and [place] | + + + | Organization | [facility] | | | [...] | | | | | [place] [address] | | + + + + + | Valentín Saleh | ECON | [address] | | | | | [place] [address] | | + + + + + | Roberto Carlos Lennon | LEVI | Unknown | | + + + + + Care Team Providers + +------+ + | Care Boat Hoist Operator Name | Role | Phone | [...] | 08/02/ | Refill | [facility] | Francois Pascal, | Medication Refill | | 2012 | | MEDICINE [place] | [address] | | | | | [address] | [address], | | | | | [place] | [place] [address] | | | | | [address] | [phone] | | | | | [phone] | | | +--------+--------+ + + + [...]
--- OUTSIDE RECORDS SUMMARY | ~2019-07-24 | XMS | Encounter Summary ---
Demographics + + + | Address | [address] | | | [place] [address] | + + + | Home Phone [...] + | Author | [facility] | | | and [place] | + + + | Organization | [facility] | | [...] | | | | | [place] [address] | | + + + + + | Valentín Saleh | ECON | [address] | | | | | [place] [address] | | + + + + + | Roberto Carlos Lennon | LEVI | Unknown | | + + + + + Care Team Providers + +------+ + | Care Enrollment Management Director Name | Role | Phone | [...] Refill | | 2013 | | MEDICINE [facility] | [address] | | | | | [facility] | [address], | | | | | [place] [address] | [place] [address] | | | | | [phone] | [phone] | | | | | | | [...]
--- OUTSIDE RECORDS SUMMARY | ~2019-07-24 | XMS | Encounter Summary ---
Demographics + + + | Address | [address] | | | [place] [address] | + + + | Home Phone [...] + | Author | [facility] | | | and [place] | + + + | Organization | [facility] | [...] | | | | | [place] [address] | | + + + + + | Valentín Saleh | ECON | [address] | | | | | [place] [address] | | + + + + + | Roberto Carlos Lennon | LEVI | Unknown | | + + + + + Care Team Providers + +------+ + | Care Transfer Clerk Name | Role | Phone | [...] | 07/19/ | Refill | [facility] [place] [facility] | Francois Pascal, | Medication Refill | | 2014 | | MEDICINE [place] | [address] | | | | | [address] | [address], | | | | | [place] | [place] [address] | | | | | [address] | [phone] | | | | | [phone] | | | +--------+--------+ + + + [...]
--- OUTSIDE RECORDS SUMMARY | ~2019-07-24 | XMS | Encounter Summary ---
Demographics + + + | Address | [address] | | | [place] [address] | + + + | Home Phone [...] [facility] | | | and [place] | + + + | Organization | [facility] [...] | | | | | [place] [address] | | + + + + + | Valentín Saleh | ECON | [address] | | | | | [place] [address] | | + + + + + | Roberto Carlos Lennon | LEVI | Unknown | | + + + + + Care Team Providers + +------+ + | Care Building Drafter Name | Role | Phone | [...] + + | 05/31/ | Office | [facility] | Francois Pascal, | Type 2 diabetes | | 2017 | Visit | MEDICINE [facility] | [address] | mellitus with | | | | [address] [place] | [address], | complication, with | | | | [place] [address] | [place] [address] | long-term current | | | | [phone] | [phone] | use of insulin (HCC) | | [...] Assessment: Plan: She declines to see a roof slater, She declines endocrine., Will divide the lantus [...] | 0.93 | 0.60 - 1.30 | [facility] | | | | | mg/dL | [facility] | | | | | | MEDICAL | | | | | | CENTER - | | | | | | LABORATORY | | + + + + + + | eGFR if not | 57 (L)Comment: | >=60 | [place] | | | | GLOMERULAR FILTRATION | mL/min/1.73m2 | [facility] | | | [place] | RATE,ESTIMATED | | MEDICAL | | | | mL/min/1.74d8Ljkg than | | CENTER - | | [...] | 9.2 | 8.3 - 10.5 | [facility] | | | | | mg/dL | [facility] | | | [...] [address] | [place] | [phone] | | [facility] | | [address] | | | - LABORATORY | | [...] | Estimated | 177 | mg/dL | [facility] | | | [...] [address] | [place] | [phone] | | [facility] | | [address] | | | - LABORATORY | | [...]
--- OUTSIDE RECORDS SUMMARY | ~2019-07-24 | XMS | Encounter Summary ---
Demographics + + + | Address | [address] | | | [place] [address] | + + + | Home Phone [...] | Author | [facility] | | | and [place] | + + + | Organization | [facility] | [...] | | | | | [place] [address] | | + + + + + | Valentín Saleh | ECON | [address] | | | | | [place] [address] | | + + + + + | Roberto Carlos Lennon | LEVI | Unknown | | + + + + + Care Team Providers + +------+ + | Care Hospital Housekeeper Name | Role | Phone | + [...] + + | 03/21/ | Office | [facility] | Francois Pascal, | Diabetes mellitus | | 2013 | Visit | MEDICINE [place] | [address] | (HCC) (Primary Dx) | | | | [address] | [address], | | | | | [place] | [place] [address] | | | | | [address] | [phone] | | | | | [phone] | | | +--------+---------+ + + + [...] her diet "with every bit she takes", Michael caused a few pr oblems with her [...] VSD Father 50 Pneumonia Family Hx of Rincon's chorea Sister and 2 brothers: CAD, Rincon's Disease to [place] - with 2 Healthy Children No kidney [...] | + + + + + | [facility] | [address] | [place], [place] | [phone] | | [facility] | | [id number] | | | - LABORATORY | | | | + + + + + | [facility] | [address] | [place], [place] | | | [facility] | | [id number] | | [...]
--- OUTSIDE RECORDS SUMMARY | ~2019-07-24 | XMS | Encounter Summary ---
Demographics + + + | Address | [address] | | | [place] [address] | + + + | Home Phone [...] | [facility] | | | and [place] | + + + | Organization | [facility] | | | [...] | | | | | [place] [address] | | + + + + + | Valentín Saleh | ECON | [phone] | | | | | [place] [address] | | + + + + + | Roberto Carlos Lennon | LEVI | Unknown | | + + + + + Care Team Providers + +------+ + | Care Chief Specialist Leed Name | Role | Phone | + +------+ + | Francois Pascal MD | PCP | | + +------+ + Reason for Visit + + + | Reason | Comments | + + + | Medication Refill | | + + + | Medication Refill | | + + + Encounter Details +--------+--------+ + + + | Date | Type | Department | Care Team | Description | +--------+--------+ + + + | 12/23/ | Refill | [facility] [place] [facility] | Francois Pascal, | Medication Refill; | | 2018 | | [facility] | [address] | Medication Refill | | | | [address] | [address], | | | | | [place] | [place] [address] | | | | | [address] | [phone] | | | | | [phone] | | | +--------+--------+ + + + [...]
--- OUTSIDE RECORDS SUMMARY | ~2019-07-24 | XMS | Encounter Summary ---
Demographics + + + | Address | [address] | | | [place] [address] | + + + | Home Phone [...] | [facility] | | | and [place] | + + + | Organization | [facility] [...] | | | | | [place] [address] | | + + + + + | Valentín Saleh | ECON | [address] | | | | | [place] [address] | | + + + + + | Roberto Carlos Lennon | LEVI | Unknown | | + + + + + Care Team Providers + +------+ + | Care Business Services Tech Name | Role | Phone | [...] | | Gait | [place] | [address] Phone: | | | | | instability | [address] | [phone] | | | | | Procedures | Phone: | Fax: | | | | | [facility] | [phone] | [phone] | | | | | TREATMENT 45 | Fax: | | | | | | | [phone] | | +--------+--------+ + + + + Encounter Details +--------+---------+ + + + | Date | Type | Department | Care Team | Description | +--------+---------+ + + + | 03/12/ | Office | [facility] | Francois Pascal, | Impaired functional | | 2016 | Visit | MED CTR THERAPY PT | [address] | mobility, balance, | | | | OP [address] | [address] [place], | gait, and endurance | | | | [place], [place] | [place] [address] | (Primary Dx); | | | | [address] | [phone] | Posture imbalance; | | | | [phone] | | Left ankle pain | | | | | Kely Quinn B, PT | | | | | | [address] | | | | | | [place] | | | | | | [address] | | | | | | | [...] might be different from t he original. [facility] CTR THERAPY PT OP [address] [place] [address] Physical Therapy Daily Treatment Note Date: 03/12/2015 Patient Information Patient Name: Alyson Lennon Date of : 1930 Age: 84 y.o. Encounter Diagnoses Code Name Primary? 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 Plan: Continue with manual therapy, LE strengthening, and gait/balance training. Electronically signed by: Kely Green PT, 03/12/2015 12:16 Patient Name: Alyson Lennon/: 1930/ documented in this [facility] nter Plan of Treatment Not on filedocumented [...]
--- OUTSIDE RECORDS SUMMARY | ~2019-07-24 | XMS | Encounter Summary ---
Demographics + + + | Address | [address] | | | [place] [address] | + + + | Home Phone [...] | Author | [facility] | | | and [place] | + + + | Organization | [facility] [...] | | | | | [place] [address] | | + + + + + | Valentín Saleh | ECON | [address] | | | | | [place] [address] | | + + + + + | Roberto Carlos Lennon | LEVI | Unknown | | + + + + + Care Team Providers + +------+ + | Care Medical Practitioners Name | Role | Phone | + [...] | 02/15/ | Refill | [facility] [place] | Stephenie Paul, | Medication Refill | | 2013 | | CARDIOLOGY [address] | MD [address] [place] | | | | | [place], | [place], | | | | | [place] [address] | [place] [address] | | | | | [phone] | [phone] | | | | | | | [...]
--- OUTSIDE RECORDS SUMMARY | ~2019-07-24 | XMS | Encounter Summary ---
Demographics + + + | Address | [address] | | | [place] [address] | + + + | Home Phone [...] | [facility] | | | and [place] | + + + | Organization | [facility] [...] | | | | | [place] [address] | | + + + + + | Valentín Saleh | ECON | [id number] | | | | | [place] [address] | | + + + + + | Roberto Carlos Lennon | LEVI | Unknown | | + + + + + Care Team Providers + +------+ + | Care Property Controller Name | Role | Phone | + +------+ + | Francois Pascal MD | PCP | | + +------+ + Encounter Details +--------+ + + + + | Date | Type | Department | Care Team | Description | +--------+ + + + + | 08/23/ | Hospital | [facility] | Stephenie Paul, | | | 2011 | Encounter | MED CTR LABORATORY | [address] | | | | | [address] [place] | [facility] [place], | | | | | [place] | [place] [address] | | | | | [address] | [phone] | | | | | [phone] | | | +--------+ + + + [...] 15 | 7 - 18 mg/dL | [facility] | | | | | | [facility] | | | | | [facility] | | | | | | [facility] - | | | | | | LABORATORY | | + + + + + + | Creatinine | 1.35 (H) | 0.60 - 1.30 | [facility] | | | | | mg/dL | [facility] | | | | | | [facility]ICAL | | | | | | CENTER - | | | | | | LABORATORY | | + + + + + + | Estimated | 38 (L)Comment: For | >60 mL/min/A | YANE [...] + | [facility] | [address] | [place] | [phone] | | [facility] | | [address] | | | - LABORATORY | | | | + + + + + | [facility] | [address] | [place], [place] | | | [facility] | | [address], [facility] | | | - LABORATORY [...] | | Lymphocytes | | | [facility] | | | | | | MEDICAL | | | | | | CENTER - | | | | | | LABORATORY | | + + + + + + | Absolute | 1.2 (H) | 0.0 - 1.0 K/uL | [facility] | | | Monocytes | | | [facility] | | [...] + + + + + | [facility] | [address] | [place], [place] | [phone] | | [facility] | | [address] | | | - LABORATORY | | | | + + + + + | [facility] | [address] | [place], [place] | | | [facility] | | [id number] [place] [address] | | | - LABORATORY | | [...] + | [facility] | [address] | [place], [place] | [phone] | | [facility] | | [address] | | | - LABORATORY | | | | + + + + + | [facility] | [address] | [place], [place] | | | [facility] | | [address], [facility] | | | - LABORATORY [...] + | [facility] | [address] | [place] | [phone] | | [facility] | | [address] | | | - LABORATORY | | | | + + + + + | [facility] | [address] | [place], [place] | | | [facility] | | [address] | | | - LABORATORY [...] | | Direct | | | [facility] | | [...] | + + + + + | [facility] | [address] | [place], [place] | [phone] | | [facility] | | [address] | | | - LABORATORY | | | | + + + + + | [facility] | [address] | [place], [place] | | | [facility] | | [id number] [place] [address] | | | - LABORATORY | | | | + + + + + documented in this encounter Visit Diagnoses Not on filedocumented in this encounter"
--- OUTSIDE RECORDS SUMMARY | ~2019-07-24 | XMS | Encounter Summary ---
Demographics + + + | Address | [address] | | | [place] [address] | + + + | Home Phone [...] Author | [facility] | | | and [place] | + + + | Organization | [facility] | | [...] | | | | | [place] [address] | | + + + + + | Valentín Saleh | ECON | [address] | | | | | [place] [address] | | + + + + + | Roberto Carlos Lennon | LEVI | Unknown | | + + + + + Care Team Providers + +------+ + | Care Sourcing Manager Name | Role | Phone | [...] | 09/28/ | Refill | [facility] [place] [facility] | Francois Pascal, | Medication Refill | | 2014 | | [facility] [place] | [address] | | | | | [address] | [address], | | | | | [place] | [place] [address] | | | | | [address] | [phone] | | | | | [phone] | | | +--------+--------+ + + + [...]
--- OUTSIDE RECORDS SUMMARY | ~2019-07-24 | XMS | Encounter Summary ---
Demographics + + + | Address | [address] | | | [place] [address] | + + + | Home Phone [...] | [facility] | | | and [place] | + + + | Organization | [facility] [...] | | | | | [place] [address] | | + + + + + | Valentín Saleh | ECON | [address] | | | | | [place] [address] | | + + + + + | Roberto Carlos Lennon | LEVI | Unknown | | + + + + + Care Team Providers + +------+ + | Care Chemistry Technician Name | Role | Phone | + +------+ + | No, Physician | PCP | Unavailable | + +------+ + Encounter Details +--------+ + + + + | Date | Type | Department | Care Team | Description | +--------+ + + + + | 04/06/ | Lab | [facility] | [place], | Chronic kidney | | 2018 | Requisition | MED CTR LABORATORY | [address] | disease, stage III | | | | [address] [place] | [address], [place] | (moderate) | | | | [place] | [address] [place] [address] | | | | | [address] | [address] | | | | | [phone] | | | +--------+ + + + [...] + | [facility] | [address] | [place], [place] | [phone] | | [facility] | | [address] | | | - LABORATORY | | [...] ST. | [address] | [place] | [phone] | | [facility] | | [address] | | | - LABORATORY | | | | + + + + + documented in this encounter Visit Diagnoses + + | Diagnosis | + + | Chronic kidney disease, stage III (moderate) (HCC) Chronic kidney disease, Stage III | | (moderate) | + + documented in this encounter"
--- OUTSIDE RECORDS SUMMARY | ~2019-07-24 | XMS | Encounter Summary ---
Demographics + + + | Address | [address] | | | [place] [address] | + + + | Home Phone [...] | Author | [facility] | | | and [place] | + + + | Organization | [facility] | | [...] | | | | | [place] [address] | | + + + + + | Valentín Saleh | ECON | [id number] | | | | | [place] [address] | | + + + + + | Roberto Carlos Lennon | LEVI | Unknown | | + + + + + Care Team Providers + +------+ + | Care Engine Oiler Name | Role | Phone | [...] | 03/27/ | Refill | [facility] [place] [facility] | Francois Pascal, | Medication Refill | | 2013 | | [facility] [place] | [address] | | | | | [address] | [address], | | | | | [place] | [place] [address] | | | | | [address] | [phone] | | | | | [phone] | | | +--------+--------+ + + + [...]
--- OUTSIDE RECORDS SUMMARY | ~2019-07-24 | XMS | Encounter Summary ---
Demographics + + + | Address | [address] | | | [place] [address] | + + + | Home Phone [...] | Author | [facility] | | | and [place] | + + + | Organization | [facility] [...] | | | | | [place] [address] | | + + + + + | Valentín Saleh | ECON | [id number] | | | | | [place] [address] | | + + + + + | Roberto Carlos Lennon | LEVI | Unknown | | + + + + + Care Team Providers + +------+ + | Care Guide Dog Instructor Name | Role | Phone | + +------+ + | Francois Pascal MD | PCP | | + +------+ + Encounter Details +--------+---------+ + + + | Date | Type | Department | Care Team | Description | +--------+---------+ + + + | 12/19/ | Office | [facility] | Francois Pascal, | DM (diabetes | | 2014 | Visit | MED CTR DIABETES | [address] | mellitus) ([facility]) | | | | EDUCATION [address] | [address] [place], | (Primary Dx) | | | | [place], | [place] [address] | | | | | [place] [address] | [phone] | | | | | [phone] | | | | | | | [...] Chrissy Muhammad RN - 12/19/2013 1:39 PM Darshan is not joined by her who prefe [...] begin doing water exerc ise at the [employer]. Teaching again regarding the importance of increasing [...] ed in this encounter Plan of Treatment Not on filedocumented as of this encounter Visit Diagnoses + + | Diagnosis | + + | DM (diabetes mellitus) ([facility]) - Primary Type II or unspecified type diabetes mellitus | | without mention of complication, not stated as uncontrolled | + + documented in this encounter"
--- OUTSIDE RECORDS SUMMARY | ~2019-07-24 | XMS | Encounter Summary ---
Demographics + + + | Address | [address] | | | [place] [address] | + + + | Home Phone [...] | | | | | [place] [address] | | + + + + + | None None | ECON | Unknown | Unavailable | + + + + + Care Team Providers + +------+ + | Care Employee Services Manager Name | Role | Phone [...] as of this encounter Progress Notes Interface, Medical Transport Specialist In - 01/17/2005 5:01 AM [facility] [id number] RAD[facility] Date: 01/05/2005 Clinic: [...] definitely be done in her hometown in [place]. We will talk to the patient in approximately 3 weeks' time to see how this treatment has benefited her. The patient was seen in clinic with Dr.Peter Blankenship, who also examined the patient and formulated the above plan. Clayton Burton M.D. MA / [id number] / [id number] / [id number] / [id number] Electronically signed by Fabio Blankenship 01-16-2005 03:26:31 PM documented i n this encounter Plan of Treatment Not on filedocumented as of this encounter Visit Diagnoses Not on filedocumented in this encounter"
--- OUTSIDE RECORDS SUMMARY | ~2019-07-24 | XMS | Encounter Summary ---
Demographics + + + | Address | [address] | | | [place] [address] | + + + | Home Phone [...] Author | [facility] | | | and [place] | + + + | Organization | [facility] [...] | | | | | [place] [address] | | + + + + + | Valentín Saleh | ECON | [address] | | | | | [place] [address] | | + + + + + | Roberto Carlos Lennon | LEVI | Unknown | | + + + + + Care Team Providers + +------+ + | Care Medicaid Billing Clerk Name | Role | Phone | [...] + + | 08/20/ | Telephone | [facility] | Francois Pascal, | Medication | | 2016 | | MEDICINE [address] | [address] | Management | | | | [place] | [address], | | | | | [place] [address] | [place] [address] | | | | | [phone] | [phone] | | | | | | | [...]
--- OUTSIDE RECORDS SUMMARY | ~2019-07-24 | XMS | Encounter Summary ---
Demographics + + + | Address | [address] | | | [place] [address] | + + + | Home Phone [...] Author | [facility] | | | and [place] | + + + | Organization | [facility] | [...] | | | | | [place] [address] | | + + + + + | Valentín Saleh | ECON | [address] | | | | | [place] [address] | | + + + + + | Roberto Carlos Lennon | LEVI | Unknown | | + + + + + Care Team Providers + +------+ + | Care Ethical Hacker Name | Role | Phone | + +------+ + | Francois Pascal MD | PCP | | + +------+ + Encounter Details +--------+ + + + + | Date | Type | Department | Care Team | Description | +--------+ + + + + | 09/10/ | Hospital | [facility] | Francois Pascal, | HYPERTENSION NEC; | | 2015 | Encounter | MED CTR LABORATORY | [address] | Hyperlipidemia; Type | | | | [address] [place] | [address] [place], | 2 diabetes mellitus | | | | [place], [place] | [place] [address] | with hyperglycemia | | | | [address] | [phone] | ([facility]); DM (diabetes | | | | [phone] | | mellitus); CHRONIC | | | [...] and would like to discuss john brody 2 weeks documented in thi s encounter [...] - 1.030 | [facility] | | | [place], | | | [facility] | | [...] Urine | | 1.0 E.U./dL | [facility] | | | | | [...] [address] | [place] | [phone] | | [facility] | | [address] | | | - LABORATORY | | [...] + | [facility] | [address] | [place] | [phone] | | [facility] | | [address] | | | - LABORATORY | | [...] [address] | [place] | [phone] | | [facility] | | [address] | | | - LABORATORY | | [...] [address] | [place] | [phone] | | [facility] | | [address] | | | - LABORATORY | | [...] 1.39 (H) | 0.60 - 1.30 | [facility] | | | | | mg/dL | [facility] | | | | | | MEDICAL | | | | | | CENTER - | | | | | | LABORATORY | | + + + + + + | eGFR if not | 36 (L)Comment: | >=60 | [facility] | | | | GLOMERULAR FILTRATION | mL/min/1.73m2 | [facility] | | | [place]IAN | RATE,ESTIMATED | | MEDICAL | | | | mL/min/1.50k2Tiyr than | | CENTER - | | [...] [address] | [place] | [phone] | | [facility] | | [address] | | | - LABORATORY | | [...]
--- OUTSIDE RECORDS SUMMARY | ~2019-07-24 | XMS | Encounter Summary ---
Demographics + + + | Address | [address] | | | [place] [address] | + + + | Home Phone [...] | [facility] | | | and [place] | + + + | Organization | [facility] | | [...] | | | | | [place] [address] | | + + + + + | Valentín Saleh | ECON | [address] | | | | | [place] [address] | | + + + + + | Roberto Carlos Lennon | LEVI | Unknown | | + + + + + Care Team Providers + +------+ + | Care Engineer Automated Equipment Name | Role | Phone | [...] | [address] | [address], [place] | (MODERATE) (Primary | | | | [place], [place] | [address] [place], [place] | Dx) | | | | [address] | [address] | | | | | [phone] | | | +--------+ + + + [...] this encounter Progress Zaynab Castellanos RN - 07/19/2012 2:24 PM PDTLabs for nephrology appt on 08/31/12 sent to [facility] documented in thi s encounter Plan of Treatment Not on filedocumented as of this encounter Results Renal Function [...] | [facility] | | | | [place] [facility] | | MEDICAL | | | [...] + | [facility] | [address] | [place], [place] | [phone] | | [facility] | | [address] | | | - LABORATORY | | | | + + + + + | [facility] | [address] | [place], [place] | | | [facility] | | [id number] [place] [address] | | | - LABORATORY | | | | + + + + + documented in this encounter Visit Diagnoses + + | Diagnosis | + + | CHRONIC KIDNEY DISEASE STAGE III (MODERATE) - Primary Chronic kidney disease, Stage | | III (moderate) | + + documented in this encounter"
--- OUTSIDE RECORDS SUMMARY | ~2019-07-24 | XMS | Encounter Summary ---
Demographics + + + | Address | [address] | | | [place] [address] | + + + | Home Phone [...] | Author | [facility] | | | and [place] | + + + | Organization | [facility] [...] | | | | | [place] [address] | | + + + + + | Valentín Saleh | ECON | [address] | | | | | [place] [address] | | + + + + + | Roberto Carlos Lennon | LEVI | [place] | | + + + + + Care Team Providers + +------+ + | Care Cell Tester Name | Role | Phone | + +------+ + PCP | Unavailable | + +------+ + Encounter Details +--------+ + + + + | Date | Type | Department | Care Team | Description | +--------+ + + + + | 06/27/ | Hospital | [facility] | | | | 1996 - | Encounter | MED CTR GENERIC IP | | | | | | CONV DEPT [address] | | | | 07/01/ | | [place], | | | | 1996 | | [place] [address] | | | | | | [phone] | | | +--------+ + + + [...]
--- OUTSIDE RECORDS SUMMARY | ~2019-07-24 | XMS | Encounter Summary ---
Demographics + + + | Address | [address] | | | [place] [address] | + + + | Home Phone [...] | Author | [facility] | | | and [place] | + + + | Organization | [facility] [...] | | | | | [place] [address] | | + + + + + | Valentín Saleh | ECON | [address] | | | | | [place] [address] | | + + + + + | Roberto Carlos Lennon | LEVI | Unknown | | + + + + + Care Team Providers + +------+ + | Care Juvenile Probation Officer Name | Role | Phone | [...] | disease, | [address] | ACCOUNT REVIEW SPECIALIST [address] | | | | | stage III | [place] | [address], | | | | | (moderate) | [place], [place] | [address] | | | | | (HCC) | [address] | [place], | | | | | Unspecified | Phone: | [place] [address] | | | | | hypertensive | [phone] | Phone: | | | | | kidney | Fax: | [phone] | | | | | disease with | [phone] | Fax: | | | | | chronic | | [phone] | | | | | kidney | [...] | Office | [facility] [place] | [place], | CHRONIC KIDNEY | | 2015 | Visit | NEPHROLOGY [address] | Kemar Wilson, [address] | DISEASE STAGE III | | | | [address] | [address], [place] | (MODERATE) (Primary | | | | [place], [place] | [address] [place] | Dx); DM type 2, | | | | [address] | [address] | uncontrolled, with | | | | [phone] | | renal complications | | | [...] Kemar Herndon ARNP - 06/06/2014 10:57 AM PDTKidney function is stable. Please avoid taking NSAIDs. 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 infarction ([facility]) (1994&1996) CAR with Hx of Myocardial infarction Other abnormal clinical finding Verebral Compression Fractures Glossitis CAD (coronary artery disease) CHF (congestive heart failure) ([facility]) Arthritis Old AR (myocardial infarction) ([facility]) Carotid stenosis H/O ventricular septal defect repair DVT (deep vein thrombosis) in Chronic kidney disease, stage III (moderate) ([facility]) Vitamin D deficiency Gout Osteoporosis OSTEOARTHRITIS, ANKLE, LEFT 01/21/2010 Squamous carcinoma 12/05/2012 Past Surgical History Procedure Laterality Date Coronary artery bypass graft 1996 Grafting for Coronary Artery Bypass x 3 vessels and VSD Patch Cholecystectomy 1986 Left brest bi 1974 Previous inferior vena cava filter Ou cateract surgery 2006 Hiatal hernia repair 1985 Orif left ankle [...] 1.001 - 1.030 | | | | [place], | | | | | | UA, [...]
--- OUTSIDE RECORDS SUMMARY | ~2019-07-24 | XMS | Encounter Summary ---
Demographics + + + | Address | [address] | | | [place] [address] | + + + | Home Phone [...] | Author | [facility] | | | and Clarkeana | + + + | Organization | [facility] [...] | | | | | [place] [address] | | + + + + + | Valentín Saleh | ECON | [phone] | | | | | [place] [address] | | + + + + + | Roberot Carlos Lennon | LEVI | [place] | | + + + + + Care Team Providers + +------+ + | Care Kai Whakaruruhau Name | Role | Phone | + +------+ + PCP | Unavailable | + +------+ + Encounter Details +--------+ + + + + | Date | Type | Department | Care Team | Description | +--------+ + + + + | 05/19/ | Hospital | [facility] | Glenn Miramontes | | | 2010 | Encounter | MED CTR XRAY [address] | [address] | | | | | [place] | [place], [place] | | | | | [place] [address] | [address] | | | | | [phone] | | | +--------+ + + + [...] + + | [facility] Diagnostic Imaging Department | [facility] | | [address] [facility] | [facility] | | PROCEDURE: LEFT SUBTALAR JOINT [...] Transcribed Date/Time: 05/20/2010 00:40 | | | Photogrammetry Airplane Pilot: <Electronically Signed by Glenn Richards | | | MD Kulwinder> 06/04/101922 | | + + + + + | Procedure Note | + + | Taras Melendez Conversion - 04/13/2013 2:27 PM [facility] | | Diagnostic Imaging Department [address] [place] [address] | | PROCEDURE: LEFT SUBTALAR JOINT INJECTION [...] 17:41 | | Transcribed Date/Time: 05/20/2010 00:40 Photogrammetry Airplane Pilot: <Electronically Signed | | by Glenn Miramontes MD> 06/04/10 192 | | | |Prior to the start [...] 17:41 | |Transcribed Date/Time: 05/20/2010 00:40 | |Photogrammetry Airplane Pilot: | |<Electronically Signed by Glenn Miramontes MD> 06/04/101922 | + + + +---------+ + + | Performing | Address | City/State/Zipcode | Phone Number | | Organization | | | | + +---------+ + + | [address] | | | | | [facility] | | | | + +---------+ + + documented in this encounter Visit Diagnoses Not on filedocumented in this encounter"
--- OUTSIDE RECORDS SUMMARY | ~2019-07-24 | XMS | Encounter Summary ---
Demographics + + + | Address | [address] | | | [place] [address] | + + + | Home Phone [...] + | Author | [facility] | | | and Clarkeana | + + + | Organization | [facility] [...] | | | | | [place] [address] | | + + + + + | Valentín Saleh | ECON | [phone] | | | | | [place] [address] | | + + + + + | Roberto Carlos Lennon | LEVI | [place] | | + + + + + Care Team Providers + +------+ + | Care Placement Interviewer Name | Role | Phone | + +------+ + PCP | Unavailable | + +------+ + Encounter Details +--------+ + + + + | Date | Type | Department | Care Team | Description | +--------+ + + + + | 02/27/ | Hospital | [facility] | Francois Pascal, | | | 2007 | Encounter | MED CTR XRAY [address] | [address] | | | | | [place] | [address] [place], | | | | | [place] [address] | [place] [address] | | | | | [phone] | [phone] | | | | | | | [...]
--- OUTSIDE RECORDS SUMMARY | ~2019-07-24 | XMS | Encounter Summary ---
Demographics + + + | Address | [address] | | | [place] [address] | + + + | Home Phone [...] | Author | [facility] | | | and Clarkeana | + + + | Organization | [facility] [...] | | | | | [place] [address] | | + + + + + | Valentín Saleh | ECON | [phone] | | | | | [place] [address] | | + + + + + | Roberto Carlos Lennon | LEVI | Unknown | | + + + + + Care Team Providers + +------+ + | Care Ice Cream Dispenser Name | Role | Phone | + +------+ + | No, Physician | PCP | Unavailable | + +------+ + Encounter Details +--------+ + + + + | Date | Type | Department | Care Team | Description | +--------+ + + + + | 10/11/ | Lab | [facility] | Fackenthall, | Chronic kidney | | 2018 | Requisition | MED CTR LABORATORY | [address] | disease, stage III | | | | [address] [place] | [address], [place] | (moderate); Type 2 | | | | [place], [place] | [address] | diabetes mellitus | | | | [address] | [address] | with diabetic | | | | [phone] | | retinopathy and | | | [...] 42 | 12 - 88 pg/mL | [facility] [...] [address] | [place] | [phone] | | [facility] | | [address] | | | - LABORATORY | | [...]
--- OUTSIDE RECORDS SUMMARY | ~2019-07-24 | XMS | Encounter Summary ---
[...] | [facility] | | | and Clarkeana | + + + | Organization | [facility] [...] | | | | | [place] [address] | | + + + + + | Valentín Saleh | ECON | [phone] | | | | | [place] [address] | | + + + + + | Roberto Carlos Lennon | LEVI | Unknown | | + + + + + Care Team Providers + +------+ + | Care Artillery Or Naval Gunfire Observer Name | Role | Phone | + [...] condition with stage | | | | [place] [address] | [place] [address] | 3 chronic kidney | | | | [phone] | [phone] | disease, with | | | | [...]
--- OUTSIDE RECORDS SUMMARY | ~2019-07-24 | XMS | Encounter Summary ---
Demographics + + + | Address | [address] | | | [place] [address] | + + + | Home Phone [...] | Author | [facility] | | | and Clarkeana | + + + | Organization | [facility] | [...] | | | | | [place] [address] | | + + + + + | Valentín Saleh | ECON | [phone] | | | | | [place] [address] | | + + + + + | Roberto Carlos Lennon | LEVI | Unknown | | + + + + + Care Team Providers + +------+ + | Care Food Safety Auditor Name | Role | Phone | + +------+ + | Francois Pascal MD | PCP | | + +------+ + Encounter Details +--------+ + + + + | Date | Type | Department | Care Team | Description | +--------+ + + + + | 12/04/ | Hospital | [facility] | Fack[place]all, | CHRONIC KIDNEY | | 2013 | Encounter | MED CTR LABORATORY | [address] | DISEASE STAGE III | | | | [address] [place] | [address] [facility] | (MODERATE); Vitamin | | | | [place], [place] | [address] [place] | D deficiency | | | | [address] | [address] | | | | | [phone] | | | +--------+ + + + [...] ST. | [address] | [place] | [phone] | | [facility] | | [address] | | | - LABORATORY | | | | + + + + + | [facility] | [address] | [place] | | | [facility] | | [address], [facility] | | | - [...] ST. | [address] | [place] | [phone] | | [facility] | | [address] | | | - LABORATORY | | | | + + + + + | [facility] | [address] | [place] | | | [facility] | | [address], [facility] | | | - [...] 21 | 12 - 88 pg/mL | [facility]ELA [...] ST. | [address] | [place] | [phone] | | [facility] | | [address] | | | - LABORATORY | | | | + + + + + | [facility] | [address] | [place], [place] | | | [facility] | | [address] | | | - LABORATORY | [...] | | | | | mg/dL | [facility] | | | | | | MEDICAL | | | | | | CENTER - | | | | | | LABORATORY | | + + + + + + | eGFR if not | 35 (L)Comment: | >=60 | BRONX | | | | GLOMERULAR FILTRATION | mL/min/1.73m2 | [facility] | | | NIUEAN | RATE,ESTIMATED | | MEDICAL | | | | mL/min/1.28i9Tulp than | | CENTER - | | [...] | | | | | mg/dL | [facility] | | | | | [...] ST. | [address] | [place], [place] | [phone] | | [facility] | | [address] | | | - LABORATORY | | | | + + + + + | [facility] | [address] | [place], [place] | | | [facility] | | [id number] [place] [address] | | | - LABORATORY | | [...]
--- OUTSIDE RECORDS SUMMARY | ~2019-07-24 | XMS | Encounter Summary ---
Demographics + + + | Address | [address] | | | [place] [address] | + + + | Home Phone [...] Author | [facility] | | | and [place]ana | + + + | Organization | [facility] [...] | | | | | [place] [address] | | + + + + + | Valentín Saleh | ECON | [phone] | | | | | [place] [address] | | + + + + + | Roberto Carlos Lennon | LEVI | Unknown | | + + + + + Care Team Providers + +------+ + | Care Clam Bed Laborer Name | Role | Phone | [...] Refill | | 2017 | | MEDICINE [facility] [address] | [address] | | | | | [facility] | [address], | | | | | [place] [address] | [place] [address] | | | | | [phone] | [phone] | | | | | | | [...]
--- OUTSIDE RECORDS SUMMARY | ~2019-07-24 | XMS | Encounter Summary ---
Demographics + + + | Address | [address] | | | [place] [address] | + + + | Home Phone [...] | Author | [facility] | | | and Clarkeana | + + + | Organization | [facility] | [...] | | | | | [place] [address] | | + + + + + | Valentín Saleh | ECON | [phone] | | | | | [place] [address] | | + + + + + | Roberto Carlos Lennon | LEVI | Unknown | | + + + + + Care Team Providers + +------+ + | Care Mixer Blender Name | Role | Phone | [...] Refill | | 2015 | | MEDICINE [facility] [address] | [address] | | | | | [facility] | [address], | | | | | [place] [address] | [place] [address] | | | | | [phone] | [phone] | | | | | | | [...]
--- OUTSIDE RECORDS SUMMARY | ~2019-07-24 | XMS | Encounter Summary ---
Demographics + + + | Address | [address] | | | [place] [address] | + + + | Home Phone [...] | Author | [facility] | | | and Clarkeana | + + + | Organization | [facility] [...] | | | | | [place] [address] | | + + + + + | Valentín Saleh | ECON | [phone] | | | | | [place] [address] | | + + + + + | Roberto Carlos Lennon | LEVI | [place] | | + + + + + Care Team Providers + +------+ + | Care Kennel Operator Name | Role | Phone | + +------+ + PCP | Unavailable | + +------+ + Encounter Details +--------+ + + + + | Date | Type | Department | Care Team | Description | +--------+ + + + + | 10/08/ | Hospital | [facility] | | | | 2002 | Encounter | MED CTR XRAY [address] | | | | | | [place] | | | | | | [place] [address] | | | | | | [phone] | | | +--------+ + + + [...]
--- OUTSIDE RECORDS SUMMARY | ~2019-07-24 | XMS | Encounter Summary ---
Demographics + + + | Address | [address] | | | [place] [address] | + + + | Home Phone [...] + | Author | [facility] | | | and [place]ana | + + + | Organization | [facility] | | [...] | | | | | [place] [address] | | + + + + + | Valentín Saleh | ECON | [phone] | | | | | [place] [address] | | + + + + + | Roberto Carlos Lennon | LEVI | [place] | | + + + + + Care Team Providers + +------+ + | Care Water Restoration Technician Name | Role | Phone | + +------+ + PCP | Unavailable | + +------+ + Encounter Details +--------+ + + + + | Date | Type | Department | Care Team | Description | +--------+ + + + + | 11/13/ | Hospital | [facility] | | | | 2005 | Encounter | MED CTR LABORATORY | | | | | | [address] | | | | | | [place] | | | | | | [address] | | | | | | [phone] | | | +--------+ + + + [...]
--- OUTSIDE RECORDS SUMMARY | ~2019-07-24 | XMS | Encounter Summary ---
Demographics + + + | Address | [address] | | | [place] [address] | + + + | Home Phone [...] | Author | [facility] | | | and [place]ana | + + + | Organization | [facility] [...] | | | | | [place] [address] | | + + + + + | Valentín Saleh | ECON | [phone] | | | | | [place] [address] | | + + + + + | Roberto Carlos Lennon | LEVI | Unknown | | + + + + + Care Team Providers + +------+ + | Care Inspector Watch Train Name | Role | Phone | + [...] Refill | | 2013 | | MEDICINE [place] | [address] | | | | | [address] | [address] [address], | | | | | [place] | [place] [address] | | | | | [address] | [phone] | | | | | [phone] | | | +--------+--------+ + + + [...]
--- OUTSIDE RECORDS SUMMARY | ~2019-07-24 | XMS | Encounter Summary ---
Demographics + + + | Address | [address] | | | [place] [address] | + + + | Home Phone [...] | Author | [facility] | | | and Clarkeana | + + + | Organization | [facility] [...] | | | | | [place] [address] | | + + + + + | Valentín Saleh | ECON | [phone] | | | | | [place] [address] | | + + + + + | Roberto Carlos Lennon | LEVI | Unknown | | + + + + + Care Team Providers + +------+ + | Care Clinical Orthoptist Name | Role | Phone | + [...] + | 11/23/ | Refill | [facility] | Stephenie Paul, | Medication Refill | | 2014 | | CARDIOLOGY [address] | MD [address] | | | | | [place], | [place], | | | | | [place] [address] | [place] [address] | | | | | [phone] | [phone] | | | | | | | [...]
--- OUTSIDE RECORDS SUMMARY | ~2019-07-24 | XMS | Encounter Summary ---
Demographics + + + | Address | [address] | | | [place] [address] | + + + | Home Phone [...] Author | [facility] | | | and Clarkeana | + + + | Organization | [facility] [...] | | | | | [place] [address] | | + + + + + | Valentín Saleh | ECON | [phone] | | | | | [place] [address] | | + + + + + | Roberto Carlos Lennon | LEVI | [place] | | + + + + + Care Team Providers + +------+ + | Care Laundry Superintendent Name | Role | Phone | + +------+ + PCP | Unavailable | + +------+ + Encounter Details +--------+ + + + + | Date | Type | Department | Care Team | Description | +--------+ + + + + | 11/23/ | Hospital | [facility] | | | | 2002 | Encounter | MED CTR LABORATORY | | | | | | [address] | | | | | | [place] | | | | | | [address] | | | | | | [phone] | | | +--------+ + + + [...]
--- OUTSIDE RECORDS SUMMARY | ~2019-07-24 | XMS | Encounter Summary ---
Demographics + + + | Address | [address] | | | [place] [address] | + + + | Home Phone [...] + | Author | [facility] | | | and Clarkeana | + + + | Organization | [facility] | | [...] | | | | | [place] [address] | | + + + + + | Valentín Saleh | ECON | [address] | | | | | [place] [address] | | + + + + + | Roberto Carlos Lennon | LEVI | Unknown | | + + + + + Care Team Providers + +------+ + | Care Museum Exhibit Technician Name | Role | Phone | [...] | [address] | [address] [place] | (moderate); HTN CKD | | | | [place], [place] | [address] [place] | UNS W/CKD STAGE I | | | | [address] | [address] | THRU STAGE IV/UNS | | | | [phone] | | | +--------+ + + + [...] on filedocumented as of this encounter Results Protein creatinine [...] RATIO,URINE | CALCULATED BECAUSE | | [facility] | | | | MEASURED VALUE [...] [address] | [place] | [phone] | | [facility] | | [address] | | | - LABORATORY | | | | + + + + + | [facility] | [address] | [place], [place] | | | [facility] | | [address], [facility] | | [...] Hydroxy | Suggests deficiency of | | [facility] | | | | 25-OH Vitamin D.20-29 [...] + + | Performing | Address | City/State/[facility] | Phone Number | | Organization | | | | + + + + + | [facility] | [address] | [place] | [phone] | | [facility] | | [address] | | | - LABORATORY | | | | + + + + + | [facility] | [address] | [place], [place] | | | [facility] | | [address], [facility] | | [...] + + + + | RBC | 3.75 | 3.70 - 5.20 | [...] + | [facility] | [address] | [place], [place] | [phone] | | [facility] | | [address] | | | - LABORATORY | | | | + + + + + | [facility] | [address] | [place], [place] | | | [facility] | | [address], [facility] | | [...] 35 (L)Comment: For | >60 mL/min/A | [facility] [...] | 19.9 | 12 - 20 | [facility] | | | ine Ratio | | | [facility] | | | | | | MEDICAL | | | | | | CENTER - | | | | | | LABORATORY | | + + + + + + | Na | 135 (L) | 136 - 149 mEq/L | [facility] [...] + + | Performing | Address | City/[facility]/Zipcode | Phone Number | | Organization | | | | + + + + + | [facility] | [address] | [place], [place] | [phone] | | [facility] | | [address] | | | - LABORATORY | | | | + + + + + | [facility] | [address] | [place], [place] | | | [facility] | | [address] | | | - [...]
--- OUTSIDE RECORDS SUMMARY | ~2019-07-24 | XMS | Encounter Summary ---
Demographics + + + | Address | [address] | | | [place] [address] | + + + | Home Phone [...] + | Author | [facility] | | | and Clarkeana | + + + | Organization | [facility] | | [...] | | | | | [place] [address] | | + + + + + | Valentín Saleh | ECON | [address] | | | | | [place] [address] | | + + + + + | Roberto Carlos Lennon | LEVI | Unknown | | + + + + + Care Team Providers + +------+ + | Care Housekeeping Laundry Worker Name | Role | Phone | [...] | | [address] | [address], [place] | (MODERATE) (Primary | | | | [place], [place] | [address] [place], [place] | Dx); Vitamin D | | | | [address] | [address] | deficiency | | | | [phone] | | | +--------+ + + + [...] [address] | [place] | [phone] | | [facility] | | [address] | | | - LABORATORY | | | | + + + + + Vitamin D, 25-Hydroxy (06/03/2015 12:43 PM PDT) + +-------+ + + + | Component | Value | Ref Range | Performed | Pathologist | | | | | At | Signature | + +-------+ + + + | Vitamin D, | 42 | 30 - 80 ng/mL | [facility] | | | 25 Hydroxy | | [...] [address] | [place] | [phone] | | [facility] | | [address] | | | - LABORATORY | | [...] mL/min/1.73m2 | [facility] | | | [place] | | | MEDICAL | | | [...] 3.8 | 2.5 - 4.6 mg/dL | [facility] [...] [address] | [place] | [phone] | | [facility] | | [address] | | | - LABORATORY | | [...]
--- OUTSIDE RECORDS SUMMARY | ~2019-07-24 | XMS | Encounter Summary ---
Demographics + + + | Address | [address] | | | [place] [address] | + + + | Home Phone [...] Author | [facility] | | | and Clarkeana | + + + | Organization | [facility] | [...] | | | | | [place] [address] | | + + + + + | Valentín Saleh | ECON | [address] | | | | | [place] [address] | | + + + + + | Roberto Carlos Lennon | LEVI | [place] | | + + + + + Care Team Providers + +------+ + | Care General Practitioner Name | Role | Phone | + +------+ + PCP | Unavailable | + +------+ + Encounter Details +--------+ + + + + | Date | Type | Department | Care Team | Description | +--------+ + + + + | 09/21/ | Hospital | [facility] | | | | 1996 | Encounter | MED CTR EMERGENCY | | | | | | CENTER [address] | | | | | | [place] | | | | | | [address] | | | | | | [phone] | | | +--------+ + + + [...]
--- OUTSIDE RECORDS SUMMARY | ~2019-07-24 | XMS | Encounter Summary ---
Demographics + + + | Address | [address] | | | [place] [address] | + + + | Home Phone [...] Author | [facility] | | | and Clarkeana | + + + | Organization | [facility] [...] | | | | | [place] [address] | | + + + + + | Valentín Saleh | ECON | [address] | | | | | [place] [address] | | + + + + + | Roberto Carlos Lennon | LEVI | Unknown | | + + + + + Care Team Providers + +------+ + | Care Pc Support Specialist Name | Role | Phone [...] 2014 | | PHYSIATRY [address] | MANAGER PHOTOGRAPHY | (Primary Dx) | | | | [address] | | | | | | [place] | | | | | | [address] | | | | | | [phone] | | | +--------+ + + + [...] filedocumented as of this encounter Results [place] Asp [...] presents to the fluoroscopy suite for a [facility] | | fluoroscopically-guided left intraarticular ankle [...] ST. | [address] | [place], [place] | [phone] | | [facility] | | [address] | | | - IMAGING | | | | + + + + + documented in this encounter Visit Diagnoses + + | Diagnosis | + + | Left ankle pain - Primary Pain in joint, ankle and foot | + + documented in this encounter"
--- OUTSIDE RECORDS SUMMARY | ~2019-07-24 | XMS | Encounter Summary ---
Demographics + + + | Address | [address] | | | [place] [address] | + + + | Home Phone [...] | [facility] | | | and Clarkeana | + + + | Organization | [facility] | | | [...] | | | | | [place] [address] | | + + + + + | Vlaentín Saleh | ECON | [address] | | | | | [place] [address] | | + + + + + | Roberto Carlos Lennon | LEVI | Unknown | | + + + + + Care Team Providers + +------+ + | Care Chemistry Quality Control Technician Name | Role | Phone | [...] + + | 10/17/ | Office | [facility] | Francois Pascal, | DM (diabetes | | 2015 | Visit | MEDICINE [address] | [address] | mellitus screen) | | | | Street [place] | [address] [place], | (Primary Dx); DM | | | | [place] [address] | [place] [address] | (diabetes mellitus) | | | | [phone] | [phone] | (HCC); Transient | | | | [...] visit, she had went to eat at [employer]. She has been fatigue and depr essed. 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 Social History: Reviewed history from 08/11/2011 and no changes required: Born in [facility] for [facility] years. and Remarried [...] (diabetes mellitus screen) 2. DM (diabetes mellitus) ([facility]) POCT Glucose 3. Transient alteration of awareness [...] | e | 2:37 PM | mellitus) (HCC) | procedure are in [...]
--- OUTSIDE RECORDS SUMMARY | ~2019-07-24 | XMS | Encounter Summary ---
Demographics + + + | Address | [address] | | | [place] [address] | + + + | Home Phone [...] [facility] | | | and [place] | + + + | Organization | [facility] | | | and [place] | + + + | Address | Unknown | + + + | Phone | Unavailable | + + + Support + + + + + | Name | Relationship | Address | Phone | + + + + + | Sigrid Lennon | ECON | [address] | | | | | [place] [address] | | + + + + + | Valentín Saleh | ECON | [id number] | | | | | [place] [address] | | + + + + + | Roberto Carlos Lennon | LEVI | Unknown | | + + + + + Care Team Providers + +------+ + | Care Gear Finisher Name | Role | Phone | [...] Refill | | 2014 | | MEDICINE [facility] | [address] | | | | | [address] | [address], | | | | | [place] | [place] [address] | | | | | [address] | [phone] | | | | | [phone] | | | +--------+--------+ + + + [...]
--- OUTSIDE RECORDS SUMMARY | ~2019-07-24 | XMS | Encounter Summary ---
Demographics + + + | Address | [address] | | | [place] [address] | + + + | Home Phone [...] | Author | [facility] | | | and [place] | + + + | Organization | [facility] | | [...] | | | | | [place] [address] | | + + + + + | Valentín Saleh | ECON | [id number] | | | | | [place] [address] | | + + + + + | Roberto Carlos Lennon | LEVI | Unknown | | + + + + + Care Team Providers + +------+ + | Care Naval Marine Engineer Name | Role | Phone | + +------+ + | Francois Pascal MD | PCP | | + +------+ + Encounter Details +--------+ + + + + | Date | Type | Department | Care Team | Description | +--------+ + + + + | 06/16/ | Hospital | [facility] | [place], | | | 2011 | Encounter | MED CTR LABORATORY | [address] | | | | | [address] [place] | [address] [facility] | | | | | [place] | [address] [place] | | | | | [address] | [address] | | | | | [phone] | | | +--------+ + + + [...] | | RATIO,URINE | | | [facility] | | | | | | [...] [address] | [place] | [phone] | | [facility] | | [address] | | | - LABORATORY | | | | + + + + + | [address] | [address] | [place] | | | [facility] | | [address], [facility] [...] | | | Cells, | | | [facility] | | | Urine | | | MEDICAL | | | | | | CENTER - | | | | | | LABORATORY | | + + + + + + | Red Blood | 2-4 | 0 - 4 /hpf | [facility] | | | Cells, | | | [facility] | | | Urine | | | [...] [address] | [place] | [phone] | | [facility] | | [address] | | | - LABORATORY | | | | + + + + + | [facility] | [address] | [place] | | | [facility] | | [address], [facility] [...] | | METHOD 1 | | | [facility] | | [...] + + + + | Clarity | HAZY | | [facility] | | | | [...] - 1.030 | [facility] | | | [place], | | | [facility] | | [...] [address] | [place] | [phone] | | [facility] | | [address] | | | - LABORATORY | | | | + + + + + | [facility] | [address] | [place], [place] | | | [facility] | | [address], [facility] [...] + + + + | WBC | 7.2 | 4.0 - 11.0 K/uL | [facility] | | | | | | [facility] | | | | | | MEDICAL | | | | | | CENTER - | | | | | | LABORATORY | | + + + + + + | RBC | 3.51 (L) | 3.70 - 5.20 | Y[facility] | | | | | M/uL | [...] @VALUE | 83.0 - 101.0 fL | [facility] | | | | CONSISTENT WITH | | [facility] | | | | PREVIOUS RESULTS | [...] [address] | [place] | [phone] | | [facility] | | [address] | | | - LABORATORY | | | | + + + + + | [facility] | [address] | [place], [place] | | | [facility] | | [address], [facility] [...] 36 (L)Comment: For | >60 mL/min/A | [facility] [...] | 7.9 | 6.0 - 17.0 | [facility] | [...] + | [facility] | [address] | [place] | [phone] | | [facility] | | [address] | | | - LABORATORY | | | | + + + + + | [facility] | [address] | [place] | | | [facility] | | [id number] [place] [address] | | | - LABORATORY | | | | + + + + + documented in this encounter Visit Diagnoses Not on filedocumented in this encounter"
--- OUTSIDE RECORDS SUMMARY | ~2019-07-24 | XMS | Encounter Summary ---
Demographics + + + | Address | [address] | | | [place] [address] | + + + | Home Phone [...] | | | | | [place] [address] | | + + + + + | Valentín Saleh | ECON | [id number] | | | | | [place] [address] | | + + + + + | Roberto Carlos Lennon | LEVI | [place] | | + + + + + Care Team Providers + +------+ + | Care Sales Representative Door To Door Name | Role | Phone | + +------+ + PCP | Unavailable | + +------+ + Encounter Details +--------+ + + + + | Date | Type | Department | Care Team | Description | +--------+ + + + + | 09/12/ | Hospital | [facility] | | | | 2004 | Encounter | MED CTR LABORATORY | | | | | | [address] | | | | | | [place] | | | | | | [address] | | | | | | [phone] | | | +--------+ + + + [...]
--- OUTSIDE RECORDS SUMMARY | ~2019-07-24 | XMS | Encounter Summary ---
Demographics + + + | Address | [address] | | | [place] [address] | + + + | Home Phone [...] + | Author | [facility] | | | and [place] | + + + | Organization | [facility] [...] | | | | | [place] [address] | | + + + + + | Valentín Saleh | ECON | [phone] | | | | | [place] [address] | | + + + + + | Roberto Carlos Lennon | LEVI | Unknown | | + + + + + Care Team Providers + +------+ + | Care Bellmaker Name | Role | Phone | + [...] | 04/04/ | Telephone | [facility] | Francois Pascal, | Medication | | 2019 | | [facility] | [address] | Management | | | | [address] | [address] [place], | | | | | [place] | [place] [address] | | | | | [address] | [phone] | | | | | [phone] | | | +--------+ + + + [...]
--- OUTSIDE RECORDS SUMMARY | ~2019-07-24 | XMS | Encounter Summary ---
Demographics + + + | Address | [address] | | | [place] [address] | + + + | Home Phone [...] | Author | [facility] | | | and [place] | + + + | Organization | [facility] | | [...] | | | | | [place] [address] | | + + + + + | Valentín Saleh | ECON | [id number] | | | | | [place] [address] | | + + + + + | Roberto Carlos Lennon | LEVI | [place] | | + + + + + Care Team Providers + +------+ + | Care Aviation Ordnance Officer Name | Role | Phone | + +------+ + PCP | Unavailable | + +------+ + Encounter Details +--------+ + + + + | Date | Type | Department | Care Team | Description | +--------+ + + + + | 11/26/ | Hospital | [facility] | | | | 2002 | Encounter | MED CTR XRAY [address] | | | | | | [place] | | | | | | [place] [address] | | | | | | [phone] | | | +--------+ + + + [...]
--- OUTSIDE RECORDS SUMMARY | ~2019-07-24 | XMS | Encounter Summary ---
Demographics + + + | Address | [address] | | | [place] [address] | + + + | Home Phone [...] | Author | [facility] | | | and [place] | + + + | Organization | [facility] [...] | | | | | [place] [address] | | + + + + + | Valentín Saleh | ECON | [id number] | | | | | [place] [address] | | + + + + + | Roberto Carlos Lennon | LEVI | [place] | | + + + + + Care Team Providers + +------+ + | Care Groundskeeper Supervisor Name | Role | Phone | + +------+ + PCP | Unavailable | + +------+ + Encounter Details +--------+ + + + + | Date | Type | Department | Care Team | Description | +--------+ + + + + | 02/17/ | Hospital | [facility] | Francois Pascal, | | | 2008 | Encounter | MED CTR LABORATORY | [address] | | | | | [address] [place] | [address], | | | | | [place] | [place] [address] | | | | | [address] | [phone] | | | | | [phone] | | | +--------+ + + + [...]
--- OUTSIDE RECORDS SUMMARY | ~2019-07-24 | XMS | Encounter Summary ---
Demographics + + + | Address | [address] | | | [place] [address] | + + + | Home Phone [...] Author | [facility] | | | and [place] | + + + | Organization | [facility] | | | [...] | | | | | [place] [address] | | + + + + + | Valentín Saleh | ECON | [id number] | | | | | [place] [address] | | + + + + + | Roberto Carlos Lennon | LEVI | Unknown | | + + + + + Care Team Providers + +------+ + | Care Study Specialist Name | Role | Phone | [...] + + | 01/09/ | Office | [facility] | Francois Pascal, | Diabetes mellitus | | 2015 | Visit | MEDICINE [address] | [address] | due to underlying | | | | [address] [place] | [address] [place], | condition with | | | | [place] [address] | [place] [address] | diabetic nephropathy | | | | [phone] | [phone] | (HCC) (Primary Dx); | | | [...] VSD Father 50 Pneumonia Family Hx of [place]'s chorea Sister and 2 brothers: CAD, Airam's Disease to [place] - with 2 Healthy Children No kidney disease in family. Social History: Reviewed history from 08/11/2011 and no changes required: Born in [facility] for 46 years. and Remarried 2 sons [...] [address] | [place] | [phone] | | [facility] | | [address] | | | - LABORATORY | | [...] | | | | | g/dL | [facility] | | | | [...] [address] | [place] | [phone] | | [facility] | | [address] | | | - LABORATORY | | [...] 1.35 (H) | 0.60 - 1.30 | [facility] | | | | | mg/dL | [facility] | | | | | | MEDICAL | | | | | | CENTER - | | | | | | LABORATORY | | + + + + + + | eGFR if not | 37 (L)Comment: | >=60 | [facility] | | | | GLOMERULAR FILTRATION | mL/min/1.73m2 | [facility] | | | SRI LANKAN | RATE,ESTIMATED | | MEDICAL | | | | mL/min/1.60a8Rlow than | | CENTER - | | [...] | 9.7 | 8.3 - 10.5 | [facility] | | | | | mg/dL | [facility] | | | | | [...] [address] | [place] | [phone] | | [facility] | | [address] | | | - LABORATORY | | [...]
--- OUTSIDE RECORDS SUMMARY | ~2019-07-24 | XMS | Encounter Summary ---
Demographics + + + | Address | [address] | | | [place] [address] | + + + | Home Phone [...] + | Author | [facility] | | | and [place] | + + + | Organization | [facility] | [...] | | | | | [place] [address] | | + + + + + | Valentín Saleh | ECON | [phone] | | | | | [place] [address] | | + + + + + | Roberto Carlos Lennon | LEVI | [place] | | + + + + + Care Team Providers + +------+ + | Care Geometrician Name | Role | Phone | + +------+ + PCP | Unavailable | + +------+ + Encounter Details +--------+ + + + + | Date | Type | Department | Care Team | Description | +--------+ + + + + | 09/05/ | Hospital | [facility] | Roberto Carlos Tello, | | | 1995 | Encounter | MED CTR XRAY [address] | [address] [facility] | | | | | [address] | [place] | | | | | [place] [address] | [address] | | | | | [phone] | | | +--------+ + + + [...]
--- OUTSIDE RECORDS SUMMARY | ~2019-07-24 | XMS | Encounter Summary ---
Demographics + + + | Address | [address] | | | [place] [address] | + + + | Home Phone [...] Author | [facility] | | | and [place] | + + + | Organization | [facility] [...] | | | | | [place] [address] | | + + + + + | Valentín Saleh | ECON | [address] | | | | | [place] [address] | | + + + + + | Roberto Carlos Lennon | LEVI | Unknown | | + + + + + Care Team Providers + +------+ + | Care Store Merchandiser Name | Role | Phone | + +------+ + | Francois Pascal MD | PCP | | + +------+ + Reason for Visit + + + | Reason | Comments | + + + | Blood Pressure Check | | | (Screening) | | + + + Encounter Details +--------+ + + + + | Date | Type | Department | Care Team | Description | +--------+ + + + + | 02/05/ | Telephone | [facility] | [place], | Blood Pressure Check | | 2013 | | NEPHROLOGY [address] | [address] | (Screening) | | | | [address] | [address], [place] | | | | | [place], [place] | [address] [place] | | | | | [address] | [address] | | | | | [phone] | | | +--------+ + + + [...]
--- OUTSIDE RECORDS SUMMARY | ~2019-07-24 | XMS | Encounter Summary ---
Demographics + + + | Address | [address] | | | [place] [address] | + + + | Home Phone [...] Author | [facility] | | | and [place] | + + + | Organization | [facility] | [...] | | | | | [place] [address] | | + + + + + | Valentín Saleh | ECON | [address] | | | | | [place] [address] | | + + + + + | Roberto Carlos Lennon | LEVI | [place] | | + + + + + Care Team Providers + +------+ + | Care Retail Coverage Merchandiser Name | Role | Phone | + +------+ + PCP | Unavailable | + +------+ + Encounter Details +--------+ + + + + | Date | Type | Department | Care Team | Description | +--------+ + + + + | 04/10/ | Hospital | [facility] | Jason Hernandez, | | | 2009 | Encounter | MED CTR XRAY [address] | PA-C [address] | | | | | [place] | [address] [place] | | | | | [place] [address] | [place] [address] | | | | | [phone] | [phone] | | | | | | | [...]
--- OUTSIDE RECORDS SUMMARY | ~2019-07-24 | XMS | Encounter Summary ---
Demographics + + + | Address | [address] | | | [place] [address] | + + + | Home Phone [...] Author | [facility] | | | and [place] | + + + | Organization | [facility] | | | [...] | | | | | [place] [address] | | + + + + + | Valentín Saleh | ECON | [address] | | | | | [place] [address] | | + + + + + | Roberto Carlos Lennon | LEVI | Unknown | | + + + + + Care Team Providers + +------+ + | Care Demonstrator Electric Gas Appliances Name | Role | Phone | + [...] + + | 03/01/ | Office | [facility] | Francois Pascal, | DM (diabetes | | 2012 | Visit | MEDICINE [place] | [address] | mellitus) (HCC) | | | | [address] | [address] [place], | (Primary Dx); | | | | [place] | [place] [address] | Hyperlipidemia; | | | | [address] | [phone] | HYPERTENSION NEC; | | | | [phone] | | CHRONIC KIDNEY | | | [...] VSD Father 50 Pneumonia Family Hx of [place]'s chorea Sister and 2 brothers: CAD, Airam's Disease to [place] - with 2 Healthy Children No kidney disease in family. Social History: Reviewed history from 08/11/2011 and no changes required: Born in [facility] for [...] - 1.030 | [facility] | | | [place], | | | [facility] | | [...] | Urine | | not performed | [facility] | | | | [...] [address] | [place] | [phone] | | [facility] | | [address] | | | - LABORATORY | | | | + + + + + | [facility] | [address] | [place], [place] | | | [facility] | | [address] | | | - LABORATORY | | [...] + | [facility] | [address] | [place], [place] | [phone] | | [facility] | | [address] | | | - LABORATORY | | | | + + + + + | [facility] | [address] | [place], [place] | | | [facility] | | [address], [facility] | | | - [...] (H) | 7 - 18 mg/dL | [facility] [place] | | | | | | [facility] | | | | | | MEDICAL | | | | | | CENTER - | | | | | | LABORATORY | | + + + + + + | Creatinine | 1.10 | 0.60 - 1.30 | [facility] | | | | | mg/dL | [facility] | | | | | | MEDICAL | | | | | | CENTER - | | | | | | LABORATORY | | + + + + + + | eGFR if not | 48 (L)Comment: | >=60 | [facility] | | | | GLOMERULAR FILTRATION | mL/min/1.73m2 | [facility] | | | [place] | RATE,ESTIMATED | | MEDICAL | | | | mL/min/1.30q7Xqbd than | | CENTER - | | [...] + | [facility] | [address] | [place], [place] | [phone] | | [facility] | | [address] | | | - LABORATORY | | | | + + + + + | [facility] | [address] | [place] | | | [facility] | | [address] [place] [address] | | | - LABORATORY | | [...] + | [facility] | [address] | [place] | [phone] | | [facility] | | [address] | | | - LABORATORY | | | | + + + + + | [facility] | [address] | [place], [place] | | | [facility] | | [address] | | | - LABORATORY | | [...]
--- OUTSIDE RECORDS SUMMARY | ~2019-07-24 | XMS | Encounter Summary ---
[...] | Author | [facility] | | | and [place] | + + + | Organization | [facility] | [...] | | | | | [place] [address] | | + + + + + | Valentín Saleh | ECON | [address] | | | | | [place] [address] | | + + + + + | Roberto Carlos Lennon | LEVI | Unknown | | + + + + + Care Team Providers + +------+ + | Care Facility Planner Name | Role | Phone | [...] Refill | | 2012 | | MEDICINE [place] | [address] | | | | | [address] | [address], | | | | | [place] | [place] [address] | | | | | [address] | [phone] | | | | | [phone] | | | +--------+--------+ + + + [...]
--- OUTSIDE RECORDS SUMMARY | ~2019-07-24 | XMS | Encounter Summary ---
Demographics + + + | Address | [address] | | | [place] [address] | + + + | Home Phone [...] | Author | [facility] | | | and [place] | + + + | Organization | [facility] [...] | | | | | [place] [address] | | + + + + + | Valentín Saleh | ECON | [address] | | | | | [place] [address] | | + + + + + | Roberto Carlos Lennon | LEVI | Unknown | | + + + + + Care Team Providers + +------+ + | Care Geographic Information Systems Manager Name | Role | Phone | [...] + + | 05/28/ | Office | [facility] | [place], | CHRONIC KIDNEY | | 2013 | Visit | NEPHROLOGY [address] | [address] | DISEASE STAGE III | | | | [address] | [address] [place] | (MODERATE) (Primary | | | | [place] | [address] [place] | Dx); HTN CKD UNS | | | | [address] | [address] | W/CKD STAGE I THRU | | | | [phone] | | STAGE IV/UNS; | | | [...] DM type 2 (diabetes mellitus, type 2) ([facility]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 Myocardial infarction ([facility]) (1994&1996) CAR with Hx of Myocardial infarction Other abnormal clinical finding Verebral Compression Fractures Glossitis CAD (coronary artery disease) CHF (congestive heart failure) ([facility]) Arthritis [place] (myocardial infarction) ([facility]) Carotid stenosis H/O ventricular septal defect repair DVT (deep vein thrombosis) in Chronic kidney disease, stage III (moderate) ([facility]) Vitamin D deficiency Gout Osteoporosis Past Surgical [...] PH UA 05/22/2013 5.5 5.0-8.0 Final Specific [place] 05/22/2013 1.015 1.001-1.030 Final PROTEIN UA 05/22/2013 [...] | 1.005 | | | | | [place], | | | | | | UA, [...]
--- OUTSIDE RECORDS SUMMARY | ~2019-07-24 | XMS | Encounter Summary ---
Demographics + + + | Address | [address] | | | [place] [address] | + + + | Home Phone [...] Author | [facility] | | | and [place] | + + + | Organization | [facility] [...] | | | | | [place] [address] | | + + + + + | Valentín Saleh | ECON | [address] | | | | | [place] [address] | | + + + + + | Roberto Carlos Lennon | LEVI | Unknown | | + + + + + Care Team Providers + +------+ + | Care Energy Risk Management Analyst Name | Role | Phone | [...] | [address] | [address] | | | | | ([facility]) | [place] | [place], | | | | | | [place], [place] | [place] | | | | | | [address] | [address] | | | | | | Phone: | Phone: | | | | | | [phone] | [phone] | | | | | | Fax: | Fax: | | | | | | [phone] | [phone] | +--------+ + + + + + Encounter Details +--------+---------+ + + + | Date | Type | Department | Care Team | Description | +--------+---------+ + + + | 09/25/ | Office | [facility] | Francois Pascal, | DM (diabetes | | 2014 | Visit | MED CTR DIABETES | [address] | mellitus) ([facility]) | | | | EDUCATION [address] | [address] [place], | (Primary Dx) | | | | [place], | [place] [address] | | | | | [place] [address] | [phone] | | | | | [phone] | | | | | | | [...] + | DM (diabetes mellitus) ([facility]) - Primary Type II or unspecified type diabetes mellitus | | without mention of complication, not stated as uncontrolled | + + documented in this encounter"
--- OUTSIDE RECORDS SUMMARY | ~2019-07-24 | XMS | Encounter Summary ---
Demographics + + + | Address | [address] | | | [place] [address] | + + + | Home Phone [...] + | Author | [facility] | | | and [place] | + + + | Organization | [facility] [...] | | | | | [place] [address] | | + + + + + | Valentín Saleh | ECON | [address] | | | | | [place] [address] | | + + + + + | Roberto Carlos Lennon | LEVI | Unknown | | + + + + + Care Team Providers + +------+ + | Care Utility Worker Roller Shop Name | Role | Phone | + +------+ + | Francois Pascal MD | PCP | | + +------+ + Reason for Visit + + + | Reason | Comments | + + + | Paperwork | | + + + | DME | | + + + Encounter Details +--------+ + + + + | Date | Type | Department | Care Team | Description | +--------+ + + + + | 10/12/ | Telephone | [facility] | Francois Pascal, | Paperwork; DME | | 2019 | | MEDICINE [place] | [address] | | | | | [address] | [address] [place], | | | | | [place] | [place] [address] | | | | | [address] | [phone] | | | | | [phone] | | | +--------+ + + + [...]
--- OUTSIDE RECORDS SUMMARY | ~2019-07-24 | XMS | Encounter Summary ---
Demographics + + + | Address | [address] | | | [place] [address] | + + + | Home Phone [...] [facility] | | | and [place] | + + + | Organization | [facility] [...] | | | | | [place] [address] | | + + + + + | Valentín Saleh | ECON | [phone] | | | | | [place] [address] | | + + + + + | Roberto Carlos Lennon | LEVI | Unknown | | + + + + + Care Team Providers + +------+ + | Care Telecommunications Switch Technician Name | Role | Phone | [...] + + | 11/27/ | Office | [facility] | Francois Pascal, | CHRONIC KIDNEY | | 2012 | Visit | [facility] [place] | [address] | DISEASE STAGE III | | | | [address] | [address], | (MODERATE) (Primary | | | | [place], [place] | [place] [address] | Dx); DM (diabetes | | | | [address] | [phone] | mellitus) (HCC); | | | | [phone] | | Hyperlipidemia; | | | | [...] 81 y.o. female. HPI Recent visit with new Greatgrandaughter at the [facility]. Left leg arthritis still some [...] left ankle. This is again unchanged from p revious. HTN There is no chest pain SOB [...] Airam's chorea Sister and 2 brothers: CAD, Arcade's Disease to [place] - with 2 Healthy Children No kidney disease in family. Social History: Reviewed history from 08/11/2011 and no changes required: Born in [facility] for [...] to path today. documented in this encounter Plan of [...]
--- OUTSIDE RECORDS SUMMARY | ~2019-07-24 | XMS | Encounter Summary ---
Demographics + + + | Address | [address] | | | [place] [address] | + + + | Home Phone [...] + | Author | [facility] | | | and [place] | + + + | Organization | [facility] [...] | | | | | [place] [address] | | + + + + + | Valentín Saleh | ECON | [phone] | | | | | [place] [address] | | + + + + + | Roberto Carlos Lennon | LEVI | Unknown | | + + + + + Care Team Providers + +------+ + | Care Business Support Name | Role | Phone | + [...] | 12/04/ | Emergency | [facility] | Jose G Reich, | Bleeding (Primary | | 2018 | | MED CTR EMERGENCY | MD [address] | Dx) | | | | CENTER [address] | [place] | | | | | [place] | [address] | | | | | [address] | | | | | | [phone] | | | +--------+ + + + [...] | | 0 | | | | Bxduldl-Axlvphjyx-Lq | mouth Daily. | | | | [...]
--- OUTSIDE RECORDS SUMMARY | ~2019-07-24 | XMS | Encounter Summary ---
Demographics + + + | Address | [address] | | | [place] [address] | + + + | Home Phone [...] + + | Author | [facility] | | | and [place] | + + + | Organization | [facility] | | [...] | | | | | [place] [address] | | + + + + + | Valentín Saleh | ECON | [id number] | | | | | [place] [address] | | + + + + + | Roberto Carlos Lennon | LEVI | Unknown | | + + + + + Care Team Providers + +------+ + | Care Transformer Repairer Name | Role | Phone | + +------+ + | Francois Pascal MD | PCP | | + +------+ + Encounter Details +--------+ + + + + | Date | Type | Department | Care Team | Description | +--------+ + + + + | 12/04/ | Hospital | [facility] | Francois Pascal, | | | 2013 | Encounter | MED CTR LABORATORY | [address] | | | | | [address] [place] | [address] [place], | | | | | [place] | [place] [address] | | | | | [address] | [phone] | | | | | [phone] | | | +--------+ + + + [...] needed. | | 0 | 04/03/19 | 11/07/201 | | (LIDEX) 0.05% cream | | [...]
--- OUTSIDE RECORDS SUMMARY | ~2019-07-24 | XMS | Encounter Summary ---
Demographics + + + | Address | [address] | | | [place] [address] | + + + | Home Phone [...] + | Author | [facility] | | | and [place] | + + + | Organization | [facility] | [...] | | | | | [place] [address] | | + + + + + | Valentín Saleh | ECON | [phone] | | | | | [place] [address] | | + + + + + | Roberto Carlos Lennon | LEVI | Unknown | | + + + + + Care Team Providers + +------+ + | Care Medical Affairs Manager Name | Role | Phone [...] | [address] | [address] [place] | (MODERATE) (Primary | | | | [place], [place] | [address] [facility] [place] | Dx); Uncontrolled | | | | [address] | [address] | type 2 diabetes | | | | [phone] | | mellitus with | | | | | | diabetic | | | | | | nephropathy, | | | | | | unspecified whether | | | | | | mcc insulin | | | | | | [...] this encounter Progress Zaynab Castellanos RN - 09/19/2017 1:55 PM PDTLabs for upcoming nephrology appointment sent to: [facility] documented in t his encounter Plan of Treatment Not on filedocumented as of this encounter Visit Diagnoses + + | Diagnosis | + + | CHRONIC KIDNEY DISEASE STAGE III (MODERATE) - Primary Chronic kidney disease, Stage | | III (moderate) | + + | 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
--- OUTSIDE RECORDS SUMMARY | ~2019-07-24 | XMS | Encounter Summary ---
Demographics + + + | Address | [address] | | | [place] [address] | + + + | Home Phone [...] | Author | [facility] | | | and [place] | + + + | Organization | [facility] | [...] | | | | | [place] [address] | | + + + + + | Valentín Saleh | ECON | [address] | | | | | [place] [address] | | + + + + + [...] | 07/13/ | Refill | [facility] | Francois Pascal, | Medication Refill | | 2012 | | [facility]IC[facility] [place] | [address] | | | | | [address] | [address] [place], | | | | | [place] | [place] [address] | | | | | [address] | [phone] | | | | | [phone] | | | +--------+--------+ + + + [...]
--- OUTSIDE RECORDS SUMMARY | ~2019-07-24 | XMS | Encounter Summary ---
Demographics + + + | Address | [address] | | | [place] [address] | + + + | Home Phone [...] + | Author | [facility] | | | and [place] | + + + | Organization | [facility] | [...] | | | | | [place] [address] | | + + + + + | Valentín Saleh | ECON | [address] | | | | | [place] [address] | | + + + + + | Roberto Carlos Lennon | LEVI | Unknown | | + + + + + Care Team Providers + +------+ + | Care Drop Wire Stringer Name | Role | Phone | + [...] | instability | [address] | [address] | | | | [address] | [address] | [place], | | | | | (ICD-10-CM) | [place] | [place] [address] | | | | | - [address] | Phone: | | | | | (ICD-9-CM) - | [address] | [phone] | | | | | Gait | Phone: | Fax: | | | | | instability | [phone] | [phone] | | | | | Procedures | Fax: | | | | | | pt eval | [phone] | | +--------+ + + + + + Encounter Details +--------+---------+ + + + | Date | Type | Department | Care Team | Description | +--------+---------+ + + + | 03/05/ | Office | [facility] | Francois Pascal, | Posture imbalance | | 2015 | Visit | MED CTR THERAPY PT | [address] | (Primary Dx); | | | | OP [address] | [address] [place], | Impaired functional | | | | [place] | [place] [address] | mobility, balance, | | | | [address] | [phone] | gait, and endurance; | | | | [phone] | | Left ankle pain | | | | | Kely Quinn B, PT | | | | | | [address] | | | | | | [place] | | | | | | [address] | | | | | | | [...] might be different from t he original. [facility] CTR THERAPY PT OP [address] [place] [address] Physical Therapy Daily Treatment Note Date: 03/05/2015 Patient Information Patient Name: Alyson Lennon Date of : 1930 Age: 84 y.o. Encounter Diagnoses Code Name Primary? R29.3 Posture imbalance Yes Z74.09 Impaired functional mobility, balance, gait, and endurance M25.572 Left ankle pain Date of Onset: Referring Provider: Francois Pascal MD Rehab Precautions Office Visit from 12/24/2014 in [facility] CTR THERAPY PT OP Rehab [...] safety at home and in the [facility]. Plan: Continue with manual therapy, LE [...]
--- OUTSIDE RECORDS SUMMARY | ~2019-07-24 | XMS | Encounter Summary ---
Demographics + + + | Address | [address] | | | [place] [address] | + + + | Home Phone [...] | Author | [facility] | | | and [place] | + + + | Organization | [facility] | [...] | | | | | [place] [address] | | + + + + + | Valentín Saleh | ECON | [phone] | | | | | [place] [address] | | + + + + + | Roberto Carlos Lennon | LEVI | Unknown | | + + + + + Care Team Providers + +------+ + | Care Composition Weatherboard Applier Name | Role | Phone | + [...] + + | 08/03/ | Telephone | [facility] | Francois Pascal, | Medication Refill | | 2014 | | [facility] [place] | [address] | | | | | [address] | [address] [place], | | | | | [place] | [place] [address] | | | | | [address] | [phone] | | | | | [phone] | | | +--------+ + + + [...]
--- OUTSIDE RECORDS SUMMARY | ~2019-07-24 | XMS | Encounter Summary ---
Demographics + + + | Address | [address] | | | [place] [address] | + + + | Home Phone [...] + + | Author | [facility] | | | and [place] | + + + | Organization | [facility] | | | [...] | | | | | [place] [address] | | + + + + + | Valentín Saleh | ECON | [address] | | | | | [place] [address] | | + + + + + | Roberto Carlos Lennon | LEVI | Unknown | | + + + + + Care Team Providers + +------+ + | Care Program Management Manager Name | Role | Phone | + +------+ + | Francois Pascal MD | PCP | | + +------+ + Encounter Details +--------+ + + + + | Date | Type | Department | Care Team | Description | +--------+ + + + + | 06/11/ | Hospital | [facility] | Fack[place], | CHRONIC KIDNEY | | 2016 | Encounter | MED CTR LABORATORY | [address] | DISEASE STAGE III | | | | [address] [place] | [address] [facility] | (MODERATE); Vitamin | | | | [place], [place] | [address] [place], [place] | D deficiency | | | | [address] | [address] | | | | | [phone] | | | +--------+ + + + [...] | | | | | | hyperglycemia ([facility]) | | | | | [...] | | | | | | mellitus) ([facility]) | | | | | [...] ST. | [address] | [place] | [phone] | | [facility] | | [address] | | | - LABORATORY | | [...]
--- OUTSIDE RECORDS SUMMARY | ~2019-07-24 | XMS | Encounter Summary ---
Demographics + + + | Address | [address] | | | [place] [address] | + + + | Home Phone [...] | Author | [facility] | | | and [place] | + + + | Organization | [facility] | | [...] | | | | | [place] [address] | | + + + + + | Valentín Saleh | ECON | [address] | | | | | [place] [address] | | + + + + + | Roberto Carlos Lennon | LEVI | [place] | | + + + + + Care Team Providers + +------+ + | Care Broaching Machine Set Up Operator Name | Role | Phone | + +------+ + PCP | Unavailable | + +------+ + Encounter Details +--------+ + + + + | Date | Type | Department | Care Team | Description | +--------+ + + + + | 10/02/ | Hospital | [facility] | | | | 2001 | Encounter | MED CTR XRAY [address] | | | | | | [place] | | | | | | [place] [address] | | | | | | [phone] | | | +--------+ + + + [...]
--- OUTSIDE RECORDS SUMMARY | ~2019-07-24 | XMS | Encounter Summary ---
Demographics + + + | Address | [address] | | | [place] [address] | + + + | Home Phone [...] | Author | [facility] | | | and [place] | + + + | Organization | [facility] [...] | | | | | [place] [address] | | + + + + + | Valentín Saleh | ECON | [address] | | | | | [place] [address] | | + + + + + | Roberto Carlos Lennon | LEVI | [place] | | + + + + + Care Team Providers + +------+ + | Care Onsite Health Coach Name | Role | Phone | + +------+ + PCP | Unavailable | + +------+ + Encounter Details +--------+ + + + + | Date | Type | Department | Care Team | Description | +--------+ + + + + | 01/15/ | Hospital | [facility] | | | | 2002 | Encounter | MED CTR LABORATORY | | | | | | [address] [place] | | | | | | [place] | | | | | | [address] | | | | | | [phone] | | | +--------+ + + + [...]
--- OUTSIDE RECORDS SUMMARY | ~2019-07-24 | XMS | Encounter Summary ---
Demographics + + + | Address | [address] | | | [place] [address] | + + + | Home Phone [...] | [facility] | | | and [place] | + + + | Organization | [facility] | [...] | | | | | [place] [address] | | + + + + + | Valentín Saleh | ECON | [address] | | | | | [place] [address] | | + + + + + | Roberto Carlos Lennon | LEVI | [place] | | + + + + + Care Team Providers + +------+ + | Care Software Development Intern Name | Role | Phone | + +------+ + PCP | Unavailable | + +------+ + Encounter Details +--------+ + + + + | Date | Type | Department | Care Team | Description | +--------+ + + + + | 02/08/ | Hospital | [facility] | | | | 2005 | Encounter | MED CTR LABORATORY | | | | | | [address] [place] | | | | | | [place] | | | | | | [address] | | | | | | [phone] | | | +--------+ + + + [...]
--- OUTSIDE RECORDS SUMMARY | ~2019-07-24 | XMS | Encounter Summary ---
Demographics + + + | Address | [address] | | | [place] [address] | + + + | Home Phone [...] Author | [facility] | | | and [place] | + + + | Organization | [facility] | [...] | | | | | [place] [address] | | + + + + + | Valentín Saleh | ECON | [address] | | | | | [place] [address] | | + + + + + | Roberto Carlos Lennon | LEVI | [place] | | + + + + + Care Team Providers + +------+ + | Care Manager Cardiology Name | Role | Phone | + +------+ + PCP | Unavailable | + +------+ + Encounter Details +--------+ + + + + | Date | Type | Department | Care Team | Description | +--------+ + + + + | 03/06/ | Hospital | [facility] | Francois Pascal, | | | 2008 | Encounter | MED CTR XRAY [address] | [address] | | | | | [place] | [address] [place], | | | | | [place] [address] | [place] [address] | | | | | [phone] | [phone] | | | | | | | [...]
--- OUTSIDE RECORDS SUMMARY | ~2019-07-24 | XMS | Encounter Summary ---
Demographics + + + | Address | [address] | | | [place] [address] | + + + | Home Phone [...] Author | [facility] | | | and [place] | + + + | Organization | [facility] | | | and [place] | + + + | Address | Unknown | + + + | Phone | Unavailable | + + + Support + + + + + | Name | Relationship | Address | Phone | + + + + + | Sigrid Lennon | ECON | [address] | | | | | [place] [address] | | + + + + + | Valentín [place] | ECON | [address] | | | | | [place] [address] | | + + + + + | Roberto Carlos Lennon | LEVI | Unknown | | + + + + + Care Team Providers + +------+ + | Care Fuel Technician Name | Role | Phone | [...] | 12/18/ | Refill | [facility] | Francois Pascal, | Medication Refill | | 2015 | | [facility] | [address] | | | | | [address] | [address] [place], | | | | | [place] | [place] [address] | | | | | [address] | [phone] | | | | | [phone] | | | +--------+--------+ + + + [...]
--- OUTSIDE RECORDS SUMMARY | ~2019-07-24 | XMS | Encounter Summary ---
Demographics + + + | Address | [address] | | | [place] [address] | + + + | Home Phone [...] Author | [facility] | | | and [place] | + + + | Organization | [facility] [...] | | | | | [place] [address] | | + + + + + | Valentín Saleh | ECON | [address] | | | | | [place] [address] | | + + + + + | Roberto Carlos Lennon | LEVI | Unknown | | + + + + + Care Team Providers + +------+ + | Care Physical Therapy Aide Name | Role | Phone | + +------+ + | Francois Pascal MD | PCP | | + +------+ + Reason for Visit +--------+ + | Reason | Comments | +--------+ + | Other | discuss imaging | +--------+ + Encounter Details +--------+ + + + + | Date | Type | Department | Care Team | Description | +--------+ + + + + | 07/30/ | Telephone | [facility] [place] | Lashawn Wyman, | Other (discuss | | 2014 | | PHYSIATRY [address] | DRUG AND ALCOHOL TREATMENT SPECIALIST | imaging) | | | | [address] | | | | | | [place] | | | | | | [address] | | | | | | [phone] | | | +--------+ + + + [...]
--- OUTSIDE RECORDS SUMMARY | ~2019-07-24 | XMS | Encounter Summary ---
Demographics + + + | Address | [address] | | | [place] [address] | + + + | Home Phone [...] Author | [facility] | | | and [place] | + + + | Organization | [facility] | | [...] | | | | | [place] [address] | | + + + + + | Valentín Saleh | ECON | [address] | | | | | [place] [address] | | + + + + + | Roberto Carlos Lennon | LEVI | Unknown | | + + + + + Care Team Providers + +------+ + | Care Air Force Pilot Name | Role | Phone | [...] | 11/23/ | Refill | [facility] [place] [facility] | Francois Pascal, | Medication Refill | | 2017 | | [facility]IC[facility] [place] | [address] | | | | | [address] | [address] [place], | | | | | [place] | [place] [address] | | | | | [address] | [phone] | | | | | [phone] | | | +--------+--------+ + + + [...]
--- OUTSIDE RECORDS SUMMARY | ~2019-07-24 | XMS | Encounter Summary ---
Demographics + + + | Address | [address] | | | [place] [address] | + + + | Home Phone [...] | Author | [facility] | | | and [place] | + + + | Organization | [facility] | [...] | | | | | [place] [address] | | + + + + + | Valentín Saleh | ECON | [address] | | | | | [place] [address] | | + + + + + | Roberto Carlos Lennon | LEVI | Unknown | | + + + + + Care Team Providers + +------+ + | Care Shop Lead Name | Role | Phone | [...] + + | 02/26/ | Documentati | [facility] | Cheyenne Caballero, | No Show | | 2014 | on | MED CTR THERAPY PT | STAFFING ACCOUNT MANAGER [address] | | | | | [address] | [place] | | | | | [place] | [id number] | | | | | [address] | | | | | | [phone] | | | +--------+ + + + [...] this encounter Progress Cheyenne Jimenez PTA - [facility] OP [address] [place] [address] Cancellation/No Show Date: 02/26/2015 Patient Information Patient [...]
--- OUTSIDE RECORDS SUMMARY | ~2019-07-24 | XMS | Encounter Summary ---
Demographics + + + | Address | [address] | | | [place] [address] | + + + | Home Phone [...] | [facility] | | | and [place] | + + + | Organization | [facility] [...] | | | | | [place] [address] | | + + + + + | Valentín Saleh | ECON | [address] | | | | | [place] [address] | | + + + + + | Roberto Carlos Lennon | LEVI | [place] | | + + + + + Care Team Providers + +------+ + | Care Outreach Specialist Name | Role | Phone | + +------+ + PCP | Unavailable | + +------+ + Encounter Details +--------+ + + + + | Date | Type | Department | Care Team | Description | +--------+ + + + + | 04/25/ | Hospital | [facility] | | | | 1995 | Encounter | MED CTR GENERIC OP | | | | | | CONV DEPT [address] | | | | | | [place], | | | | | | [place] [address] | | | | | | [phone] | | | +--------+ + + + [...]
--- OUTSIDE RECORDS SUMMARY | ~2019-07-24 | XMS | Encounter Summary ---
Demographics + + + | Address | [address] | | | [place] [address] | + + + | Home Phone [...] | Author | [facility] | | | and [place] | + + + | Organization | [facility] [...] | | | | | [place] [address] | | + + + + + | Valentín Saleh | ECON | [address] | | | | | [place] [address] | | + + + + + | Roberto Carlos Lennon | LEVI | Unknown | | + + + + + Care Team Providers + +------+ + | Care Portfolio Mgr Name | Role | Phone | + +------+ + | Francois Pascal MD | PCP | | + +------+ + Encounter Details +--------+ + + + + | Date | Type | Department | Care Team | Description | +--------+ + + + + | 12/19/ | Hospital | [facility] | Francois Pascal, | 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 | [address] | [place], [place] | [phone] | | [facility] | | [address] | | | - LABORATORY | | | | + + + + + | [facility] | [address] | [place] | | | [facility] | | [address] [place] [address] | | | - LABORATORY | | [...] + | [facility] | [address] | [place] | [phone] | | [facility] | | [address] | | | - LABORATORY | | | | + + + + + | [facility] | [address] | [place], [place] | | | [facility] | | [address] | | | - LABORATORY [...] Hydroxy | Suggests deficiency of | | [facility] | | | | 25-OH Vitamin [...] + | [facility] | [address] | [place], [place] | [phone] | | [facility] | | [address] | | | - LABORATORY | | | | + + + + + | [facility] | [address] | [place] | | | [facility] | | [id number] [place] [address] | | | - LABORATORY | | [...] + | [facility] | [address] | [place], [place] | [phone] | | [facility] | | [address] | | | - LABORATORY | | | | + + + + + | [facility] | [address] | [place], [place] | | | [facility] | | [address], [facility] | | | - LABORATORY [...] [address] | [place] | [phone] | | [facility] | | [address] | | | - LABORATORY | | | | + + + + + | [facility] | [address] | [place], [place] | | | [facility] | | [address], [facility] | | | - LABORATORY [...]
--- OUTSIDE RECORDS SUMMARY | ~2019-07-24 | XMS | Encounter Summary ---
Demographics + + + | Address | [address] | | | [place] [address] | + + + | Home Phone [...] Author | [facility] | | | and [place] | + + + | Organization | [facility] | | | and [place] | + + + | Address | Unknown | + + + | Phone | Unavailable | + + + Support + + + + + | Name | Relationship | Address | Phone | + + + + + | Sigrid Lennon | ECON | [address] | | | | | [place] [address] | | + + + + + | Valentín Saleh | ECON | [phone] | | | | | [place] [address] | | + + + + + | Roberto Carlos Lennon | LEVI | Unknown | | + + + + + Care Team Providers + +------+ + | Care Slip Sheeter Name | Role | Phone | + [...] + + | 02/07/ | Telephone | [facility] | Francois Pascal, | Other | | 2018 | | MEDICINE [place] | [address] | | | | | [address] | [address] [place], | | | | | [place] | [place] [address] | | | | | [address] | [phone] | | | | | [phone] | | | +--------+ + + + [...]
--- OUTSIDE RECORDS SUMMARY | ~2019-07-24 | XMS | Encounter Summary ---
Demographics + + + | Address | [address] | | | [place] [address] | + + + | Home Phone [...] Author | [facility] | | | and [place] | + + + | Organization | [facility] | | [...] | | | | | [place] [address] | | + + + + + | Valentín Saleh | ECON | [address] | | | | | [place] [address] | | + + + + + | Roberto Carlos Lennon | LEVI | [place] | | + + + + + Care Team Providers + +------+ + | Care Database Developer Name | Role | Phone | + +------+ + PCP | Unavailable | + +------+ + Encounter Details +--------+ + + + + | Date | Type | Department | Care Team | Description | +--------+ + + + + | 02/05/ | Hospital | [facility] | | | | 2004 | Encounter | MED CTR LABORATORY | | | | | | [address] | | | | | | [place] | | | | | | [address] | | | | | | [phone] | | | +--------+ + + + [...]
--- OUTSIDE RECORDS SUMMARY | ~2019-07-24 | XMS | Encounter Summary ---
Demographics + + + | Address | [address] | | | [place] [address] | + + + | Home Phone [...] | Author | [facility] | | | and [place] | + + + | Organization | [facility] | [...] | | | | | [place] [address] | | + + + + + | Valentín Saleh | ECON | [phone] | | | | | [place] [address] | | + + + + + | Roberto Carlos Lennon | LEVI | Unknown | | + + + + + Care Team Providers + +------+ + | Care Orthodontist Small Business Owner Name | Role | Phone | + [...] + + | 12/05/ | Office | [facility] | Francois Pascal, | Squamous carcinoma | | 2013 | Visit | [facility]IC[facility] [place] | [address] | ([facility]) (Primary Dx) | | | | [address] | [address], | | | | | [place] | [place] [address] | | | | | [address] | [phone] | | | | | [phone] | | | +--------+---------+ + + + [...] of dorsal right wrist was prepped and aped in sterile fashion and a 1 cm [...]
--- OUTSIDE RECORDS SUMMARY | ~2019-07-24 | XMS | Encounter Summary ---
Demographics + + + | Address | [address] | | | [place] [address] | + + + | Home Phone [...] | Author | [facility] | | | and [place] | + + + | Organization | [facility] | | | [...] | | | | | [place] [address] | | + + + + + | Valentín Saleh | ECON | [phone] | | | | | [place] [address] | | + + + + + | Roberto Carlos Lennon | LEVI | Unknown | | + + + + + Care Team Providers + +------+ + | Care Loss Prevention Research Engineer Name | Role | Phone | [...] + | 01/09/ | Telephone | [facility] | Francois Pascal, | Results | | 2014 | | MEDICINE [address] | MD [address] | | | | | [facility] | [address] [place], | | | | | [place] [address] | [place] [address] | | | | | [phone] | [phone] | | | | | | | [...]
--- OUTSIDE RECORDS SUMMARY | ~2019-07-24 | XMS | Encounter Summary ---
Demographics + + + | Address | [address] | | | [place] [address] | + + + | Home Phone [...] [facility] | | | and [place] | + + + | Organization | [facility] [...] | | | | | [place] [address] | | + + + + + | Valentín Saleh | ECON | [address] | | | | | [place] [address] | | + + + + + | Roberto Carlos Lennon | LEVI | Unknown | | + + + + + Care Team Providers + +------+ + | Care Rib Cutter Name | Role | Phone | [...] | instability | [address] | [place] | | | | n | [address] | [address] | [place], | | | | | (ICD-10-CM) | [place] | [place] [address] | | | | | - 781.2 | [place] | Phone: | | | | | (ICD-9-CM) - | [address] | [phone] | | | | | Gait | Phone: | Fax: | | | | | instability | [phone] | [phone] | | | | | Procedures | Fax: | | | | | | pt eval | [phone] | | +--------+ + + + + + Encounter Details +--------+---------+ + + + | Date | Type | Department | Care Team | Description | +--------+---------+ + + + | 01/27/ | Office | [facility] | Francois Pascal, | Posture imbalance | | 2015 | Visit | MED CTR THERAPY PT | MD [address] | (Primary Dx); | | | | OP [address] | [address] [place], | Impaired functional | | | | [place] | [place] [address] | mobility, balance, | | | | [address] | [phone] | gait, and endurance; | | | | [phone] | | Left ankle pain | | | | | Cheyenne Caballero, | | | | | | SECOND BAKER [address] | | | | | | [place] | | | | | | [address] | | | | | | | [...] encounter Progress Notes Cheyenne Caballero PTA - 01/27/2015 12:12 PM PSTFormatting of this note might be different f rom the original. [facility] CTR THERAPY PT OP [address] [place] [address] Physical Therapy Daily Treatment Note Date: 01/27/2015 [...]
--- OUTSIDE RECORDS SUMMARY | ~2019-07-24 | XMS | Encounter Summary ---
Demographics + + + | Address | [address] | | | [place] [address] | + + + | Home Phone [...] + | Author | [facility] | | | and [place] | + + + | Organization | [facility] | | [...] | | | | | [place] [address] | | + + + + + | Valentín Saleh | ECON | [address] | | | | | [place] [address] | | + + + + + | Roberto Carlos Lennon | LEVI | Unknown | | + + + + + Care Team Providers + +------+ + | Care Soldering Machine Setter Name | Role | Phone [...] Refill | | 2013 | | MEDICINE [place] | [address] | | | | | [address] | [address], | | | | | [place] | [place] [address] | | | | | [address] | [phone] | | | | | [phone] | | | +--------+--------+ + + + [...]
--- OUTSIDE RECORDS SUMMARY | ~2019-07-24 | XMS | Encounter Summary ---
Demographics + + + | Address | [address] | | | [place] [address] | + + + | Home Phone [...] Author | [facility] | | | and [place] | + + + | Organization | [facility] | | [...] | | | | | [place] [address] | | + + + + + | Valentín Saleh | ECON | [phone] | | | | | [place] [address] | | + + + + + | Roberto Carlos Lennon | LEVI | Unknown | | + + + + + Care Team Providers + +------+ + | Care Freight Hustler Name | Role | Phone | + [...] | instability | [address] | [place] | | | | n | [address] | [address] | [place], | | | | | (ICD-10-CM) | [place] | [place] [address] | | | | | - 781.[address] | [place] | Phone: | | | | | (ICD-9-CM) - | [address] | [phone] | | | | | Gait | Phone: | Fax: | | | | | instability | [phone] | [phone] | | | | | Procedures | Fax: | | | | | | pt eval | [phone] | | +--------+ + + + + + Encounter Details +--------+---------+ + + + | Date | Type | Department | Care Team | Description | +--------+---------+ + + + | 02/17/ | Office | [facility] | Francois Pascal, | Posture imbalance | | 2015 | Visit | MED CTR THERAPY PT | MD [address] | (Primary Dx); | | | | OP [address] | [address] [place], | Impaired functional | | | | [place] | [place] [address] | mobility, balance, | | | | [address] | [phone] | gait, and endurance; | | | | [phone] | | Left ankle pain | | | | | Cheyenne Caballero, | | | | | | MANAGER OF WAREHOUSE [address] | | | | | | [place] | | | | | | [address] | | | | | | | [...] encounter Progress Notes Cheyenne Caballero PTA - 02/17/2015 12:12 PM PSTFormatting of this note might be different f rom the original. [facility] CTR THERAPY PT OP [address] [place] [address] Physical Therapy Daily Treatment Note Date: 02/17/2015 Patient Information Patient Name: Alyson Lennon Date of : 1930 Age: 84 y.o. Encounter Diagnoses Code Name Primary? R29.3 Posture imbalance Yes Z74.09 Impaired functional mobility, balance, gait, and endurance M25.572 Left ankle pain Date of Onset: 10/24/2014 Referring Provider: Francois Pascal MD Rehab Precautions Office Visit from 12/24/2014 in [facility] CTR THERAPY PT OP Rehab [...]
--- OUTSIDE RECORDS SUMMARY | ~2019-07-24 | XMS | Encounter Summary ---
Demographics + + + | Address | [address] | | | [place] [address] | + + + | Home Phone [...] | | | | | [place] [address] | | + + + + + | Valentín Saleh | ECON | [address] | | | | | [place] [address] | | + + + + + | Roberto Carlos Lennon | LEVI | Unknown | | + + + + + Care Team Providers + +------+ + | Care Safety Manager Name | Role | Phone | [...] + + | 06/23/ | Telephone | [facility] | Airam Menjivar | Results | | 2012 | | MEDICINE [address] | [address], [address] | | | | | [address] | | | | | | [place] [address] | | | | | | [phone] | | | +--------+ + + + [...]
--- OUTSIDE RECORDS SUMMARY | ~2019-07-24 | XMS | Encounter Summary ---
Demographics + + + | Address | [address] | | | [place] [address] | + + + | Home Phone [...] + | Author | [facility] | | | and [place] | + + + | Organization | [facility] [...] | | | | | [place] [address] | | + + + + + | Valentín Saleh | ECON | [phone] | | | | | [place] [address] | | + + + + + | Roberto Carlos Lennon | LEVI | [place] | | + + + + + Care Team Providers + +------+ + | Care Veneer Press Operator Name | Role | Phone | + +------+ + PCP | Unavailable | + +------+ + Encounter Details +--------+ + + + + | Date | Type | Department | Care Team | Description | +--------+ + + + + | 04/29/ | Hospital | [facility] | Mauricio Rider | | | 2010 | Encounter | MED CTR LABORATORY | MD [place] [address] [place] [address] | | | | | [address] | [place] | | | | | [place] | [id number] | | | | | [address] | | | | | | [phone] | | | +--------+ + + + [...]
--- OUTSIDE RECORDS SUMMARY | ~2019-07-24 | XMS | Encounter Summary ---
Demographics + + + | Address | [address] | | | [place] [address] | + + + | Home Phone [...] Author | [facility] | | | and [place] | + + + | Organization | [facility] | [...] | | | | | [place] [address] | | + + + + + | Valentín Saleh | ECON | [address] | | | | | [place] [address] | | + + + + + | Roberto Carlos Lennon | LEVI | Unknown | | + + + + + Care Team Providers + +------+ + | Care Dry Chain Puller Name | Role | Phone | + +------+ + | Frnacois Pascal MD | PCP | | + +------+ + Reason for Visit + + + | Reason | Comments | + + + | Vaginitis | patient reports symptoms of vaginitis | + + + Encounter Details +--------+ + + + + | Date | Type | Department | Care Team | Description | +--------+ + + + + | 11/08/ | Telephone | [facility] | Francois Pascal, | Vaginitis (patient | | 2015 | | MEDICINE [address] | [address] | reports symptoms of | | | | [address] [place] | [address] [place], | vaginitis) | | | | [place] [address] | [place] [address] | | | | | [phone] | [phone] | | | | | | | [...]
--- OUTSIDE RECORDS SUMMARY | ~2019-07-24 | XMS | Encounter Summary ---
Demographics + + + | Address | [address] | | | [place] [address] | + + + | Home Phone [...] Author | [facility] | | | and [place] | + + + | Organization | [facility] [...] | | | | | [place] [address] | | + + + + + | Valentín Saleh | ECON | [address] | | | | | [place] [address] | | + + + + + | Roberto Carlos Lennon | LEVI | Unknown | | + + + + + Care Team Providers + +------+ + | Care City Mail Carrier Name | Role | Phone | + +------+ + | Francois Pascal MD | PCP | | + +------+ + Reason for Visit + + + | Reason | Comments | + + + | Lab Order | pt due for labs prior to appt. | + + + Encounter Details +--------+ + + + + | Date | Type | Department | Care Team | Description | +--------+ + + + + | 01/31/ | Telephone | [facility] | Stephenie Paul, | Lab Order (pt due | | 2018 | | CARDIOLOGY [address] | [address] | for labs prior to | | | | [place], | 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
--- OUTSIDE RECORDS SUMMARY | ~2019-07-24 | XMS | Encounter Summary ---
Demographics + + + | Address | [address] | | | [place] [address] | + + + | Home Phone [...] + | Author | [facility] | | | and [place] | + + + | Organization | [facility] | | | [...] | | | | | [place] [address] | | + + + + + | Valentín Saleh | ECON | [address] | | | | | [place] [address] | | + + + + + | Roberto Carlos Lennon | LEVI | Unknown | | + + + + + Care Team Providers + +------+ + | Care Piece Worker Name | Role | Phone | [...] | | | | [place], [place] | [address] Phone: | | | | | | [address] | [phone] | | | | | | Phone: | Fax: | | | | | | [phone] | [phone] | | | | | | Fax: | | | | | | | [phone] | | +--------+ + + + + [...] [address] | [address] | ankle (Primary Dx); | | | | Street [place] | [address] [place], | Essential | | | | [place] [address] | [place] [address] | hypertension; | | | | [phone] | [phone] | Primary | | | | | [...] encounter Progress Notes Francois Pascal MD - 06/19/2014 9:57 AM PDTFormatting of [...] B, 20-30 L and 36 for dinner. umer Andino (she understands the risk with this). [...] still feeling slightly sore though. 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 Carmelo blunt follows with Dr Bolton [...] VSD Father 50 Pneumonia Family Hx of Carbondale's chorea Sister and 2 brothers: CAD, Carbondale's Disease to Sigrid - with 2 Healthy Children No kidney disease in family. Social History: Reviewed history from 08/11/2011 and no changes required: [facility] [...] 1. Arthritis of left ankle * [facility] [place] [facility] - AMB Referral 2. Essential hypertension [...] [place] | Outpatient | Routin | Arthritis [...]
--- OUTSIDE RECORDS SUMMARY | ~2019-07-24 | XMS | Encounter Summary ---
Demographics + + + | Address | [address] | | | [place] [address] | + + + | Home Phone [...] Author | [facility] | | | and [place] | + + + | Organization | [facility] | [...] | | | | | [place] [address] | | + + + + + | Valentín Saleh | ECON | [address] | | | | | [place] [address] | | + + + + + | Roberto Carlos Lennon | LEVI | Unknown | | + + + + + Care Team Providers + +------+ + | Care Pastry Artist Name | Role | Phone | + [...] | Francois Tello MD | [address] | | | | | (shortness | [address] | [place], | | | | | of breath) | [address] | [place] | | | | | Procedures | [place] | [address] | | | | | ECHO | [place] | Phone: | | | | | Complete | [address] | [phone] | | | | | | Phone: | Fax: | | | | | | [phone] | [phone] | | | | | | Fax: | | | | | | | [phone] | | +--------+--------+ + + + + [...] + + | 11/04/ | Office | [facility] | Francois Pascal, | CKD (chronic kidney | | 2015 | Visit | [address] | [address] | disease) stage 4, | | | | [address] | [address] [place], | GFR 15-29 ml/min | | | | [place] [address] | [place] [address] | (HCC) (Primary Dx); | | | | [phone] | [phone] | SOB (shortness of | | | [...] disease) stage 4, GFR 15-29 ml/min ([facility] Comprehensive Metabolic Pa gwendolyn 2. SOB (shortness [...] filedocumented as of this encounter Results VAS Carotid Duplex Bilateral (11/25/2014 1:10 PM PDT) + + | Specimen | + + | | + + + + + | Narrative | Performed At | + + + | BILATERAL DUPLEX CAROTID ULTRASOUND 11/25/2014 12:19 PM | [facility] | | CLINICAL HISTORY: confusion COMPARISON: CAROTID ULTRASOUND | [facility] | | FEBRUARY 2009 FINDINGS: Grayscale, color Doppler and duplex | [facility] | | Doppler interrogation of the bilateral [...] + | Taras Melendez Results In - 11/25/2014 3:09 PM PDT [...] [address] | [place] | [phone] | | [facility] | | [address] | | | - IMAGING | | | | + + + + + ECHO Complete (11/25/2014 11:42 AM PDT) + + | Specimen | + + | | + + + + + | Narrative | Performed At | + + + | [facility] ECHOCARDIOGRAM REPORT | [facility] | | STUDY DATE: 11/25/2014 PATIENT NAME: Alyson Lennon : | [facility] | | 1930 PCP: Francois Pascal MD | [facility] | | CLINICAL HISTORY/DIAGNOSIS: SOB, HTN A [...] | | | PhD FACC 11/25/2014 11:43 News Clipping Cutter: Rolando | | | Mir, RDCS, RVT, RDMS | | + + + + + + + + | Performing | Address | City/State/Zipcode | Phone Number | | Organization | | | | + + + + + | [address] | [address] | [place] | [phone] | | [facility] | | [address] | | | - IMAGING | | | | + + + + + documented in this encounter Visit Diagnoses + + | Diagnosis | + + | CKD (chronic kidney disease) stage 4, GFR 15-29 ml/min ([facility]) - Primary Chronic kidney | | disease, Stage IV (severe) | + + | SOB (shortness of breath) Shortness of breath | + + | Confusion Unspecified psychosis | + + documented in this encounter
--- OUTSIDE RECORDS SUMMARY | ~2019-07-24 | XMS | Encounter Summary ---
Demographics + + + | Address | [address] | | | [place] [address] | + + + | Home Phone [...] | Author | [facility] | | | and [place] | + + + | Organization | [facility] | [...] | | | | | [place] [address] | | + + + + + | Valentín Saleh | ECON | [address] | | | | | [place] [address] | | + + + + + | Roberto Carlos Lennon | LEVI | [place] | | + + + + + Care Team Providers + +------+ + | Care Is Technician Name | Role | Phone | + +------+ + PCP | Unavailable | + +------+ + Encounter Details +--------+ + + + + | Date | Type | Department | Care Team | Description | +--------+ + + + + | 01/21/ | Hospital | [facility] | | | | 2002 | Encounter | MED CTR LABORATORY | | | | | | [address] | | | | | | [place] | | | | | | [address] | | | | | | [phone] | | | +--------+ + + + [...]
--- OUTSIDE RECORDS SUMMARY | ~2019-07-24 | XMS | Encounter Summary ---
Demographics + + + | Address | [address] | | | [place] [address] | + + + | Home Phone [...] | Author | [facility] | | | and [place] | + + + | Organization | [facility] [...] | | | | | [place] [address] | | + + + + + | Valentín Saleh | ECON | [address] | | | | | [place] [address] | | + + + + + | Roberto Carlos Lennon | LEVI | Unknown | | + + + + + Care Team Providers + +------+ + | Care Bench Machine Operator Name | Role | Phone [...] Refill | | 2013 | | MEDICINE [place] | [address] | | | | | [address] | [address] [place], | | | | | [place] | [place] [address] | | | | | [address] | [phone] | | | | | [phone] | | | +--------+--------+ + + + [...]
--- OUTSIDE RECORDS SUMMARY | ~2019-07-24 | XMS | Encounter Summary ---
Demographics + + + | Address | [address] | | | [place] [address] | + + + | Home Phone [...] | Author | [facility] | | | and [place] | + + + | Organization | [facility] | [...] | | | | | [place] [address] | | + + + + + | Valentín Saleh | ECON | [address] | | | | | [place] [address] | | + + + + + | Roberto Carlos Lennon | LEVI | [place] | | + + + + + Care Team Providers + +------+ + | Care Human Factors Ergonomist Name | Role | Phone | + +------+ + PCP | Unavailable | + +------+ + Encounter Details +--------+ + + + + | Date | Type | Department | Care Team | Description | +--------+ + + + + | 06/24/ | Hospital | [facility] | Francois Pascal, | | | 2009 | Encounter | MED CTR LABORATORY | [address] | | | | | [address] [place] | [address], | | | | | [place] | [place] [address] | | | | | [address] | [phone] | | | | | [phone] | | | +--------+ + + + [...]
--- OUTSIDE RECORDS SUMMARY | ~2019-07-24 | XMS | Encounter Summary ---
Demographics + + + | Address | [address] | | | [place] [address] | + + + | Home Phone [...] Author | [facility] | | | and [place] | + + + | Organization | [facility] [...] | | | | | [place] [address] | | + + + + + | Valentín Saleh | ECON | [address] | | | | | [place] [address] | | + + + + + | Roberto Carlos Lennon | LEVI | Unknown | | + + + + + Care Team Providers + +------+ + | Care Operator Automated Process Name | Role | Phone | + [...] + + | 10/30/ | Telephone | [facility] | Francois Pascal, | Diabetes | | 2019 | | MEDICINE [place] | [address] | | | | | [address] | [address] [place], | | | | | [place] | [place] [address] | | | | | [address] | [phone] | | | | | [phone] | | | +--------+ + + + [...]
--- OUTSIDE RECORDS SUMMARY | ~2019-07-24 | XMS | Encounter Summary ---
Demographics + + + | Address | [address] | | | [place] [address] | + + + | Home Phone [...] + | Author | [facility] | | | and Clarkeana | + + + | Organization | [facility] | [...] | | | | | [place] [address] | | + + + + + | Valentín Saleh | ECON | [id number] | | | | | [place] [address] | | + + + + + | Roberto Carlos Lennon | LEVI | Unknown | | + + + + + Care Team Providers + +------+ + | Care Tube Station Attendant Name | Role | Phone | [...] | [address] | [address], [place] | | | | | [place], [place] | [address] [place] | | | | | [address] | [address] | | | | | [phone] | | | +--------+ + + + [...]
--- OUTSIDE RECORDS SUMMARY | ~2019-07-24 | XMS | Encounter Summary ---
Demographics + + + | Address | [address] | | | [place] [address] | + + + | Home Phone [...] | Author | [facility] | | | and [place] | + + + | Organization | [facility] | [...] | | | | | [place] [address] | | + + + + + | Valentín Saleh | ECON | [address] | | | | | [place] [address] | | + + + + + | Roberto Carlos Lennon | LEVI | Jeyson | | + + + + + Care Team Providers + +------+ + | Care Distresser Name | Role | Phone | + +------+ + PCP | Unavailable | + +------+ + Encounter Details +--------+ + + + + | Date | Type | Department | Care Team | Description | +--------+ + + + + | 02/23/ | Hospital | [facility] | Francois Pascal, | | | 2009 | Encounter | MED CTR XRAY [address] | [address] | | | | | [place] | [address] [place] [address], | | | | | [place] [address] | [place] [address] | | | | | [phone] | [phone] | | | | | | | [...]
--- OUTSIDE RECORDS SUMMARY | ~2019-07-24 | XMS | Encounter Summary ---
Demographics + + + | Address | [address] | | | [place] [address] | + + + | Home Phone [...] Author | [facility] | | | and [place]ana | + + + | Organization | [facility] | [...] | | | | | [place] [address] | | + + + + + | Valentín Saleh | ECON | [address] | | | | | [place] [address] | | + + + + + | Roberto Carlos Lennon | LEVI | Unknown | | + + + + + Care Team Providers + +------+ + | Care Hse Manager Name | Role | Phone | + +------+ + | Francois Pascal MD | PCP | | + +------+ + Encounter Details +--------+ + + + + | Date | Type | Department | Care Team | Description | +--------+ + + + + | 12/18/ | Hospital | [facility] | Francois Pascal, | HYPERTENSION NEC; DM | | 2014 | Encounter | MED CTR LABORATORY | [address] | (diabetes mellitus) | | | | [address] [place] | [address], | | | | | [place] | [place] [address] | | | | | [address] | [phone] | | | | | [phone] | | | +--------+ + + + [...] PDTdocumented in this encounter Plan of Treatment Not [...] - 1.030 | [facility] | | | [place], | | | [facility] | | [...] [address] | [place] | [phone] | | [facility] | | [address] | | | - LABORATORY | | | | + + + + + | [facility] | [address] | [place] | | | [facility] | | [id number] [...] (H) | 4.3 - 5.8 % | [facility] | | | A1c | | | [facility] | | | | | | MEDICAL | | | | | | CENTER - | | | | | | LABORATORY | | + +---------+ + + + | Estimated | 177 | mg/dL | [facility] | | | Average | | | [...] + | [facility] | [address] | [place] | [phone] | | [facility] | | [address] | | | - LABORATORY | | | | + + + + + | [facility] | [address] | [place] | | | [facility] | | [address], [facility] | | | - LABORATORY [...] + | [facility] | [address] | [place], [place] | [phone] | | [facility] | | [address] | | | - LABORATORY | | | | + + + + + | [facility] | [address] | [place] | | | [facility] | | [id number] [...] | mL/min/1.73m2 | [facility] | | | ZIM[facility] | RATE,ESTIMATED | | MEDICAL | | | | mL/min/1.48k9Fpwr than | | CENTER - | | [...] + | [facility] | [address] | [place], [place] | [phone] | | [facility] | | [address] | | | - LABORATORY | | | | + + + + + | [facility] | [address] | [place], [place] | | | [facility] | | [address] [place] [address] | | | - LABORATORY | | [...]
--- OUTSIDE RECORDS SUMMARY | ~2019-07-24 | XMS | Encounter Summary ---
Demographics + + + | Address | [address] | | | [place] [address] | + + + | Home Phone [...] | [facility] | | | and [place] | + + + | Organization | [facility] [...] | | | | | [place] [address] | | + + + + + | Valentín Saleh | ECON | [phone] | | | | | [place] [address] | | + + + + + | Roberto Carlos Lennon | LEVI | Unknown | | + + + + + Care Team Providers + +------+ + | Care Statistical Typist Name | Role | Phone | + [...] | [address] | [address], | | | | | [place], [place] | [place] [address] | | | | | [address] | [phone] | | | | | [phone] | | | +--------+ + + + [...]
--- OUTSIDE RECORDS SUMMARY | ~2019-07-24 | XMS | Encounter Summary ---
Demographics + + + | Address | [address] | | | [place] [address] | + + + | Home Phone [...] | | | | | [place] [address] | | + + + + + | Valentín Saleh | ECON | [phone] | | | | | [place] [address] | | + + + + + | Roberto Carlos Lennon | LEVI | Unknown | | + + + + + Care Team Providers + +------+ + | Care Civil Division Deputy Sheriff Name | Role | Phone | + [...] | hypertension | [address] | MANAGER ORDER [address] | | | | | Chronic | [place] | [address], | | | | | kidney | [place], [place] | [address] | | | | | disease, | [address] | [place], | | | | | stage III | Phone: | [place] [address] | | | | | (moderate) | [phone] | Phone: | | | | | (HCC) Type | Fax: | [phone] | | | | | II or | [phone] | Fax: | | | | | unspecified | | [phone] | | | | | type | [...] | | | | | | | [facility] | | | | | | [...] | [address] | [address], [place] | (MODERATE) (Primary | | | | [place], [place] | [address] [place] | Dx); Hypertension, | | | | [address] | [address] | renal disease, stage | | | | [phone] | | 1-4 or unspecified | | | | | | chronic kidney | | | | | | disease; DM type 2, | | | | | | uncontrolled, 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 CC: rFancois Pascal MD documented i n this encounter [...] 1.001 - 1.030 | | | | [place], | | | | | | UA, [...]
--- OUTSIDE RECORDS SUMMARY | ~2019-07-24 | XMS | Encounter Summary ---
Demographics + + + | Address | [address] | | | [place] [address] | + + + | Home Phone [...] | Author | [facility] | | | and [place]ana | + + + | Organization | [facility] | [...] | | | | | [place] [address] | | + + + + + | Valentín Saleh | ECON | [phone] | | | | | [place] [address] | | + + + + + | Roberto Carlos Lennon | LEVI | Unknown | | + + + + + Care Team Providers + +------+ + | Care Athletic Monitor Name | Role | Phone | + [...] + + | 07/25/ | Office | [facility] | Francois Pascal, | Diabetes mellitus | | 2018 | Visit | MEDICINE [address] | [address] | due to underlying | | | | Street [place] | [address] [place], | condition with | | | | [place] [address] | [place] [address] | hyperglycemia, with | | | | [phone] | [phone] | long-term current | | | | [...] VSD Father 50 Pneumonia Family Hx of [facility]'s chorea Sister and 2 brothers: CAD, Airam's Disease to Sigrid - with 2 Healthy Children No kidney disease in family. Social History: Born in [facility] for 47 [...]
--- OUTSIDE RECORDS SUMMARY | ~2019-07-24 | XMS | Encounter Summary ---
Demographics + + + | Address | [address] | | | [place] [address] | + + + | Home Phone [...] | Author | [facility] | | | and [place] | + + + | Organization | [facility] [...] | | | | | [place] [address] | | + + + + + | Valentín Saleh | ECON | [phone] | | | | | [place] [address] | | + + + + + | Roberto Carlos Lennon | LEVI | Unknown | | + + + + + Care Team Providers + +------+ + | Care Cotton Bag Clipper Name | Role | Phone | + +------+ + | Francois Pascal MD | PCP | | + +------+ + Encounter Details +--------+ + + + + | Date | Type | Department | Care Team | Description | +--------+ + + + + | 02/25/ | [facility] | [facility] | Francois Pascal, | | | 2010 | Encounter | MED CTR XRAY [address] | [address] | | | | | [place] | [address] [place], | | | | | [place] [address] | [place] [address] | | | | | [phone] | | | | | | | [...] Performed At | + + + | [facility] | [place] | | [address] [facility] | [facility] | | MAMMOGRAM SCREENING, 02/25/2011 | TAN [place]LLOA | | CLINICAL HISTORY: SCREENING MAMMOGRAM. COMPARISON: [...] Transcribed | | | Date/Time: 02/25/2011 17:29 Medication Nurse: | | | <Electronically Signed by David Jon MD> 02/25/112040 | | + + + + + | Procedure Note | + + | Al, Rad Conversion - 04/13/2013 4:27 PM [facility] | | Diagnostic Imaging Department [facility] | | MAMMOGRAM SCREENING, 02/25/2011 CLINICAL HISTORY: [...] by David Jon MD> 02/25/11 | | 2040 | | | |FINDINGS: There is symmetric [...] 17:26 | |Transcribed Date/Time: 02/25/2011 17:29 | |Medication Nurse: | |<Electronically Signed by David Jon MD> [...]
--- OUTSIDE RECORDS SUMMARY | ~2019-07-24 | XMS | Encounter Summary ---
Demographics + + + | Address | [address] | | | [place] [address] | + + + | Home Phone [...] | Author | [facility] | | | and [place] | + + + | Organization | [facility] | [...] | | | | | [place] [address] | | + + + + + | Valentín Saleh | ECON | [address] | | | | | [place] [address] | | + + + + + | Roberto Carlos Lennon | LEVI | Unknown | | + + + + + Care Team Providers + +------+ + | Care Manager Provider Relations Name | Role | Phone | + [...] + + | 09/09/ | Office | [facility] | Francois Pascal, | 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 Review of Systems Objective: Physical [...]
--- OUTSIDE RECORDS SUMMARY | ~2019-07-24 | XMS | Encounter Summary ---
Demographics + + + | Address | [address] | | | [place] [address] | + + + | Home Phone [...] + | Author | [facility] | | | and [place]ana | + + + | Organization | [facility] | | [...] | | | | | [place] [address] | | + + + + + | Valentín Saleh | ECON | [address] | | | | | [place] [address] | | + + + + + | Roberto Carlos Lennon | LEVI | Unknown | | + + + + + Care Team Providers + +------+ + | Care Day Habilitation Specialist Name | Role | Phone | [...] Refill | | 2019 | | MEDICINE [facility] | [address] | | | | | [address] | [address], | | | | | [place] | [place] [address] | | | | | [address] | [phone] | | | | | [phone] | | | +--------+--------+ + + + [...]
--- OUTSIDE RECORDS SUMMARY | ~2019-07-24 | XMS | Encounter Summary ---
Demographics + + + | Address | [address] | | | [place] [address] | + + + | Home Phone [...] + | Author | [facility] | | | and [place] | + + + | Organization | [facility] [...] | | | | | [place] [address] | | + + + + + | Valentín Saleh | ECON | [address] | | | | | [place] [address] | | + + + + + [...] + + | 02/16/ | Hospital | [facility] | Francois Pascal, | High risk medication | | 2016 | Encounter | MED CTR LABORATORY | [address] | use; Type 2 | | | | [address] [place] | [address], | diabetes mellitus | | | | [place], [place] | [place] [address] | with stage 3 chronic | | | | [address] | [phone] | kidney disease | | | | [phone] | | (HCC) | +--------+ + + [...] | | 0 | | | | [facility] | mouth Daily. | | | | [...] [address] | [place] | [phone] | | [facility] | | [address] | | | - LABORATORY | | [...] [address] | [place] | [phone] | | [facility] | | [address] | | | - LABORATORY | | [...] (H) | 7 - 18 mg/dL | [facility] | | | | | | [facility] | | | | | | MEDICAL | | | | | | CENTER - | | | | | | LABORATORY | | + + + + + + | Creatinine | 1.59 (H) | 0.60 - 1.30 | [facility] | | | | | mg/dL | [facility] | | | | | | MEDICAL | | | | | | CENTER - | | | | | | LABORATORY | | + + + + + + | eGFR if not | 31 (L)Comment: | >=60 | [facility] | | | | GLOMERULAR FILTRATION | mL/min/1.73m2 | [facility] | | | FRENCH | RATE,ESTIMATED | | MEDICAL | | | | mL/min/1.81y9Tkyp than | | CENTER - | | [...] ST. | [address] | [place] | [phone] | | [facility] | | [address] | | | - LABORATORY | | [...]
--- OUTSIDE RECORDS SUMMARY | ~2019-07-24 | XMS | Encounter Summary ---
Demographics + + + | Address | [address] | | | [place] [address] | + + + | Home Phone [...] Author | [facility] | | | and [place] | + + + | Organization | [facility] | [...] | | | | | [place] [address] | | + + + + + | Valentín Saleh | ECON | [phone] | | | | | [place] [address] | | + + + + + | Roberto Carlos Lennon | LEVI | Unknown | | + + + + + Care Team Providers + +------+ + | Care Rn Complex Care Name | Role | Phone | + [...] + + | 08/10/ | Office | [facility] | Francois Pascal, | Diabetes mellitus | | 2016 | Visit | MEDICINE [address] | [address] | due to underlying | | | | Street [place] | [address], | condition with | | | | [place] [address] | [place] [address] | hyperglycemia (HCC) | | | | [phone] | [phone] | (Primary Dx); Other | | | [...]
--- OUTSIDE RECORDS SUMMARY | ~2019-07-24 | XMS | Encounter Summary ---
Demographics + + + | Address | [address] | | | [place] [address] | + + + | Home Phone [...] | Author | [facility] | | | and [place] | + + + | Organization | [facility] | [...] | | | | | [place] [address] | | + + + + + | Valentín Saleh | ECON | [address] | | | | | [place] [address] | | + + + + + | Roberto Carlos Lennon | LEVI | Unknown | | + + + + + Care Team Providers + +------+ + | Care Client Operations Manager Name | Role | Phone | + +------+ + | Francois Pascal MD | PCP | | + +------+ + Encounter Details +--------+ + + + + | Date | Type | Department | Care Team | Description | +--------+ + + + + | 03/06/ | Hospital | [facility] | Francois Pascal, | Other screening | | 2013 | Encounter | MED CTR MAMMOGRAPHY | [address] | mammogram | | | | [address] | [address], | | | | | [place] | [place] [address] | | | | | [address] | [phone] | | | | | [phone] | | | +--------+ + + + [...] + | MISCELLANEOUS LAB | | | [phone] | + +---------+ + + | MISCELANIOUS LAB | | | [phone] | + +---------+ + + documented in this encounter Visit Diagnoses + + | Diagnosis | + + | Other screening mammogram | + + documented in this encounter"
--- OUTSIDE RECORDS SUMMARY | ~2019-07-24 | XMS | Encounter Summary ---
Demographics + + + | Address | [address] | | | [place] [address] | + + + | Home Phone [...] | Author | [facility] | | | and [place] | + + + | Organization | [facility] [...] | | | | | [place] [address] | | + + + + + | Valentín Saleh | ECON | [address] | | | | | [place] [address] | | + + + + + | Roberto Carlos Lennon | LEVI | Unknown | | + + + + + Care Team Providers + +------+ + | Care Electronics Processor Name | Role | Phone | [...] | [facility] | Francois aPscal, | Medication Refill | | 2013 | | MEDICINE [place] | [address] | | | | | [address] | [address], | | | | | [place] | [place] [address] | | | | | [address] | [phone] | | | | | [phone] | | | +--------+--------+ + + + [...]
--- OUTSIDE RECORDS SUMMARY | ~2019-07-24 | XMS | Encounter Summary ---
Demographics + + + | Address | [address] | | | [place] [address] | + + + | Home Phone [...] Author | [facility] | | | and [place] | + + + | Organization | [facility] | [...] | | | | | [place] [address] | | + + + + + | Valentín Saleh | ECON | [address] | | | | | [place] [address] | | + + + + + | Roberto Carlos Lennon | LEVI | Unknown | | + + + + + Care Team Providers + +------+ + | Care Radiation Control Health Physicist Name | Role | Phone | + [...] + | 10/10/ | Telephone | [facility] | Francois Pascal, | Medication | | 2019 | | [facility] | [address] | Management | | | | [address] | [address], | | | | | [place] | [place] [address] | | | | | [address] | [phone] | | | | | [phone] | | | +--------+ + + + [...]
--- OUTSIDE RECORDS SUMMARY | ~2019-07-24 | XMS | Encounter Summary ---
Demographics + + + | Address | [address] | | | [place] [address] | + + + | Home Phone [...] | [facility] | | | and [place] | + + + | Organization | [facility] | | [...] | | | | | [place] [address] | | + + + + + | Valentín Saleh | ECON | [address] | | | | | [place] [address] | | + + + + + | Roberto Carlos Lennon | LEVI | Unknown | | + + + + + Care Team Providers + +------+ + | Care Class 1 Owner Operator Name | Role | Phone | [...] Refill | | 2015 | | MEDICINE [facility] [address] | [address] | | | | | [facility] | [address], | | | | | [place] [address] | [place] [address] | | | | | [phone] | [phone] | | | | | | | [...]
--- OUTSIDE RECORDS SUMMARY | ~2019-07-24 | XMS | Encounter Summary ---
Demographics + + + | Address | [address] | | | [place] [address] | + + + | Home Phone [...] | Author | [facility] | | | and [place]ana | + + + | Organization | [facility] | [...] | | | | | [place] [address] | | + + + + + | Valentín Saleh | ECON | [address] | | | | | [place] [address] | | + + + + + [...] + + | 08/31/ | Office | [facility] | [place], | CHRONIC KIDNEY | | 2012 | Visit | NEPHROLOGY [address] | [address] | DISEASE STAGE III | | | | [address] | [address], [place] | (MODERATE) (Primary | | | | [place] | [address] [place] | Dx); HTN CKD UNS | | | | [address] | [address] | W/CKD STAGE I THRU | | | | [phone] | | STAGE IV/UNS; | | | [...] in her usual state of health since la st visit, without any illnesses or hospitalizations. She [...] 3 Allergies Allergen Reactions Codeine Sulfate Uknown Luisvon Nausea Only Estrogens Unknown ROS: Some chronic [...] understanding of above plan. CC: Francois Pascal HPI Review of Systems Physical Exam documented i [...] | 1.005 | | | | | [place], | | | | | | UA, [...]
--- OUTSIDE RECORDS SUMMARY | ~2019-07-24 | XMS | Encounter Summary ---
Demographics + + + | Address | [address] | | | [place] [address] | + + + | Home Phone [...] Author | [facility] | | | and [place] | + + + | Organization | [facility] | | | [...] | | | | | [place] [address] | | + + + + + | Valentín Saleh | ECON | [address] | | | | | [place] [address] | | + + + + + | Roberto Carlos Lennon | LEVI | Unknown | | + + + + + Care Team Providers + +------+ + | Care Coating Operator Name | Role | Phone | [...] + | 03/21/ | Office | [facility] | Stephenie Paul, | CAD (coronary artery | | 2015 | Visit | CARDIOLOGY [address] | [address] | disease) (Primary | | | | [place], | [place], | Dx); Essential | | | | [place] [address] | [place] [address] | hypertension | | | | [phone] | [phone] | | | | | | | [...] in a class I of [place] [employer] functional class. Physical exam shows [...] year. Electronically signed by: Stephenie Paul MD [facility] 03/21/2014 Portions of this chart may have been created with [employer] voice recognition software. Occasi onal wrong-word or [...] of unspecified type | | of vessel, tejon or graft | + + | Essential hypertension Unspecified essential hypertension | + + documented in this encounter
--- OUTSIDE RECORDS SUMMARY | ~2019-07-24 | XMS | Encounter Summary ---
Demographics + + + | Address | [address] | | | [place] [address] | + + + | Home Phone [...] Author | [facility] | | | and [place]ana | + + + | Organization | [facility] [...] | | | | | [place] [address] | | + + + + + | Valentín Saleh | ECON | [address] | | | | | [place] [address] | | + + + + + | Roberot Carlos Lennon | LEVI | [place] | | + + + + + Care Team Providers + +------+ + | Care Supervisor Warping Department Name | Role | Phone | + +------+ + PCP | Unavailable | + +------+ + Encounter Details +--------+ + + + + | Date | Type | Department | Care Team | Description | +--------+ + + + + | 05/10/ | Hospital | [facility] | | | | 2006 | Encounter | MED CTR LABORATORY | | | | | | [address] | | | | | | [place] | | | | | | [address] | | | | | | [phone] | | | +--------+ + + + [...]
[2019-07-24] MEDS ORDERED: LANTUS100 UNITS/ SUB-Q (19:00)
[2019-07-24] MEDS ORDERED: NOVOLOG FL100 UNIT/1 SUB-Q (19:00)
[2019-07-24] MEDS ORDERED: METOPROLOL SUCC50 MG PO (19:00)
[2019-07-24] MEDS ORDERED: MULTIVITAMINS1 EAC7 PO (19:01)
[2019-07-24] MEDS ORDERED: VITAMIN D325 MC2 PO (19:01)
[2019-07-24] MEDS ORDERED: ZESTRIL10 MG PO (19:01)
[2019-07-24] MEDS ORDERED: LIPITOR40 MG PO (19:02)
[2019-07-24] MEDS ORDERED: ALLOPURINOL100 MG PO (19:02)
[2019-07-24] MEDS ORDERED: FOLIC ACID1 MG PO (19:03)
[2019-07-24] MEDS ORDERED: NYSTATIN1 EAC2 MISC (19:03)
[2019-07-24] MEDS ORDERED: XARELTO10 MG PO (19:03)
[2019-07-24] MEDS ORDERED: ESCITALOPRAM OXA5 MG PO (19:04)
--- NOTE | 2019-07-24 22:30 | NUR ---
PT ARRIVED IN CCU AT 2140. BG UPON ARRIVAL WAS 174. HR IS IRREGULAR AND MOSTLY IN THE 40'S-60'S. PT ALSO HAS HAD SEVERAL >2SEC PAUSES SO FAR. PT IS INCONTINENT AT BASELINE. PT IS ONLY ORIENTED TO SELF, PUPILS ARE 1MM AND SLUGGISH IN RESPONSE. PT IS NOT ABLE TO MOVE HER LEGS AT ALL BUT OTHERWISE IS ABLE TO FOLLOW MOST COMMANDS. BP IS SLIGHLY ELEVATED. OTHER V/S ARE WDL. PT HAS DECUBITUS STAGE II ON HER COCCYX AND HER UPPER BACK, A FOAM DRESSING WAS APPLIED. PT HAS +1 EDEMA IN HER LLE AND TRACE EDMA IN HER RLE. HER SKIN IS DRY, FRAGILE AND FLAKEY. LOBES SO FAR ARE CLEAR BUT PT IS NOT TAKING SHIRA DEEP BREATHS EITHER. ABD SOUNDS ARE PRESENT AND ABD IS SOFT TO TOUCH. UNKOWN LAST BM.
--- NOTE | 2019-07-24 23:40 | NUR ---
BG AT 262 NOW. REDUCED IV FLUIDS TO 75MLS/HR. WILL CONTINUE TO MONITOR.
--- NOTE | 2019-07-24 23:40 | NUR ---
PT WAS ALSO TURNED TO HER LEFT SIDE. NO NEW CONCERNS NOTED AT THIS TIME.
--- NOTE | 2019-07-25 00:30 | NUR ---
BG AT THIS TIME IS 204. PT IS SLEEPING AT THIS TIME. HR NOW MOSTLY IN THE UPPER 30'S- LOW 50'S, BP'S ALSO ARE STEADY DECLINING. WILL CONTINUE TO MONITOR.
--- NOTE | 2019-07-25 01:32 | NUR ---
pt heart rate dropped to 29 for 1 sec and then went back up into the 40s. BP 114/42 (59). Pt opened eyes to touch. blood sugar 148 at this time. Will continue to monitor alertness, blood sugar, and heart rate.
--- NOTE | 2019-07-25 01:40 | NUR ---
BG AT 0130 WAS 148. HR NOW INTO THE 20'S AT TIMES BUT MOSTLY IN THE 40'S. PT WAS TURNED AGAIN AT 0100. PT BRIEF WAS DRY.
--- NOTE | 2019-07-25 01:56 | NUR ---
MD WRIGHT WAS CALLED FOR LOW HR AND BG TRENDING DOWN. NO NEW ORDERS WERE GIVEN.
--- NOTE | 2019-07-25 02:06 | NUR ---
BG NOW 130. PT DOES OPEN HER EYES TO SOUND. PT STATED THAT SHE WAS VERY TIRED. WILL CONTINUE TO MONITOR.
--- NOTE | 2019-07-25 03:03 | NUR ---
BG NOW 97. PT WAS TURNED AGAIN. NO NEW CONCERNS HAVE BEEN NOTED.
--- NOTE | 2019-07-25 04:30 | NUR ---
BG AT THIS TIME IS 69. 25MLS DEXTROSE WAS GIVEN PER ORDER PROTOCOL. HR STILL LOW IN THE 30'S-40'S, BP'S AT TIMES SOFT. OTHER V/S WDL. PT HAD ANOTHER INCONTINENT VOID. PT WAS ALSO TURNED. LOBES ARE CLEAR, ABD SOUNDS PRESENT, ABD SOFT TO TOUCH, PT HAS A MURMUR PRESENT, BILATERAL ARM STRENGTH +4, PT IS NOT ABLE TO MOVE LEGS. BILATERAL LEG EDEMA IS UNCHANGED. PUPILS 2MM, SLOW TO REACT. PT IS ABLE TO TRACE FOR THE MOST PART AND OVERALL FOLLOWS COMMANDS WELL. WILL CONTINUE TO MONITOR.
--- NOTE | 2019-07-25 06:00 | NUR ---
BG'S ARE TRENDING DOWN AGAIN. LAST ONE WAS 91 AT THIS TIME. PT IS SLEEPING, HR STILL LOW IN THE 30'S-50'S, BP'S AND OTHER V/S ARE WDL, PT SINCE ARRIVAL IN CCU HAD VOIDS X2. PT HAS REMAINED ORIENTED ONLY TO SELF AND . PT HAS BEEN FREQUENTLY TURNED.
--- NOTE | 2019-07-25 06:45 | NUR ---
BG AT THIS TIME IS 68, D50% 25MLS IV PUSH WILL BE GIVEN. HR STILL LOW 30'S-40'S, BP'S SOFT AGAIN IN THE UPPER 90'S. WILL CONTINUE TO MONITOR.
--- NOTE | 2019-07-25 07:00 | NUR ---
Report received, orders acknowledged.
--- NOTE | 2019-07-25 09:12 | NUR ---
Patient sleeping in bed, rouses to tactile stimulation. BG of 125 noted. HR ranging from 40-50's. D5LR infusing at 125 mls/hr. Patient returns to sleep easily. Call light within reach.
--- NOTE | 2019-07-25 10:00 | NUR ---
Dr. De La Torre in room to assess patient and discuss POC. New orders acknowledged, Dextrose 10% infusing at 100 mls/hr. BG of 84. Patient denies pain.
--- NOTE | 2019-07-25 10:30 | NUR ---
CALL FROM [facility] FOR CHECK ON PT AND FOLLOW UP ON PLAN. NO CHANGES O CURRENT RECOMMENDATIONS.
--- NOTE | 2019-07-25 11:05 | NUR ---
Patient sitting upright in bed watching tv. Food tray delivered, sudanese yogurt with honey and mashed potatoes and gravy eaten. Patient appears more alert, eyes open, one word responses to questions. HR in the 60's, BP of 108/35 (53). Water refreshed.
--- NOTE | 2019-07-25 11:40 | NUR ---
In to speak with pt for CM assessment. Pt has dementia and is unable to answer questions. Spoke with Rn and she states concerns as pt was given 80Units of insulin instead of 8 units. Pt also has two wounds on coccyx and upper spine which are bright red and through the layers of skin. Returned to my office and called APS and reported wounds and error in meds to Krish Powers. Called and completed assessment with Bridget from [facility]. She states pt lives in [facility] due to her dementia. She is wc bound and requires full care. Pt can stand and walk, but is very unsteady and requires someone to walk with her at all times. Pt has recently changed to Dr. Francois De La Fuente at [facility]. Pt's son's are Valentín and Ye Saleh. See CM assessment note for phone numbers as they were not entered on admit.
--- NOTE | 2019-07-25 12:00 | NUR ---
BG of 121, D10W continuing to infuse at 100 mls/hr
--- NOTE | 2019-07-25 12:40 | NUR ---
SITTING UP IN BED. FED PATIENT SMALL BOWL OF YOGURT AND 150 ML OF ORANGE. TOLERATED WELL. REPOSITIONED TO RIGHT SIDE.
--- NOTE | 2019-07-25 13:00 | NUR ---
ACCUCHECK 127. REMAINS ON D10W AT 100 ML/HR.
--- NOTE | 2019-07-25 13:52 | NUR ---
DEISY CARVALHO INFORMED ME PT HAS SEVERE DEMENTIA.PT RESPONDED TO MY VOICE-EYES MOVED AND ANSWERED MY QUESTIONS-SIMPLY BUT GAVE RESPONSE. PT SMILED AND I ASKED HER IF I COULD PRAY FOR HER, SHE SAID YES. SMILED I SAID GOOD BY
--- NOTE | 2019-07-25 14:10 | NUR ---
BG of 121, D10W infusing at 100 mls/hr
--- NOTE | 2019-07-25 14:56 | NUR ---
Patient up to BSC with total assist for BM. Returned to chair with pillows in place under arms and back for comfort. New linens on bed. Patient continuing to drink water with assistance. Patient has not voided, bladder scan performed - 367 mls noted. Two large masses noted on abdomen, patient denies pain with palpation and does not guard. Will continue to monitor BG.
--- NOTE | 2019-07-25 15:11 | NUR ---
Patient sitting in chair watching tv. BG of 182, D10W infusing at 100 mls/hr. HR in the upper 50's, SpO2 of 100% on RA. Warm blankets provided, no further needs.
--- NOTE | 2019-07-25 16:30 | NUR ---
remains in chair. assessment done. no changes.
--- NOTE | 2019-07-25 18:10 | NUR ---
Patient sitting up in chair watching tv. Dinner eaten with nursing assistance. BG of 140, D10 continuing to infuse at 50 mls/hr. HR in the 70's, BP of 164/48 (76). SpO2 of 100% on RA. Water refreshed. Patient denies any other needs.
--- NOTE | 2019-07-25 19:00 | NUR ---
Patient transferred to bed from chair with total assist. Patient incontinent of urine, new attends in place. BG of 138, D10 infusing at 50 mls/hr. Patient turned onto left side. Water provided. No further needs, call light within reach.
--- NOTE | 2019-07-25 20:30 | NUR ---
V/S ARE WDL, BP A BIT ELEVATED. PT IS MORE ALERT OVERALL BUT STILL ORIENTED ONLY TO SELF. ALL LOBES ARE CLEAR, BILATERAL LOWER LEG EDEMA IS +1/TRACE, ABD SOUNDS PRESENT. BG AT 1999 WAS 151. NO NEW CONCERNS NOTED AT THIS TIME. PT WAS ALSO TURNED AND BRIEF WAS CHANGED.
--- NOTE | 2019-07-25 22:00 | NUR ---
BG TO BE TAKEN 2QHRS FOR NOW. PT WAS ALSO RE-POSITIONED. NO NEW CONCERNS HAVE BEEN NOTED.
--- NOTE | 2019-07-26 | NUR ---
V/S ARE WDL OVERALL. PT IS JENNY IN THE 50'S AT TIMES. URINE OUTPUT SEEMS ADEQUATE SO FAR, PT ORIENTED TO SELF, LOBES ARE CLEAR, ABD SOUNDS PRESENT, BILATERAL LOWER LEG EDEMA IS UNCHANGED. BRIEF WAS CHANGED AND PT WAS RE-POSITIONED. PT NOW READY FOR SLEEP. NO NEW CONCERNS NOTED AT THIS TIME. WILL CONTINUE TO MONITOR.
--- NOTE | 2019-07-26 02:05 | NUR ---
PT IS SLEEPING AT THIS TIME. SINCE BG IS >200, IV FLUIDS WERE DECREASED TO 25MLS/HR WAS AGREED UPON EARLIER WITH MD CHRISTIAN. PT WAS ALSO RE-POSITIONED. V/S ARE WDL, HR IN THE 50'S AT TIMES. NO NEW CONCERNS NOTED SO FAR.
--- NOTE | 2019-07-26 04:00 | NUR ---
BG WAS 191, D10% IV FLUID WAS INCREASED TO 50MLS/HR AGAIN. BRIEF WAS CHANGED AND PT WAS TURNED. ASSESSMENT HAD NO CHANGES PRESENT, V/S ARE WDL, PT DOES HAVE A SLIGHT TEMP OF 99.0F AT THIS TIME. WILL CONTINUE TO MONITOR.
--- NOTE | 2019-07-26 06:08 | NUR ---
PT IS STILL SLEEPING, PT WAS TURNED. NO NEW CONCERNS NOTED.
--- NOTE | 2019-07-26 07:30 | NUR ---
PATIENT SHIFT REPORT RECIEVED FROM CERTIFIED MEDICAL ASST RN. PATIENT RESTING IN BED WITH LIGHT DOWN AT THIS TIME. WILL CONTINUE TO CLOSELY MONITOR.
--- NOTE | 2019-07-26 08:30 | NUR ---
PATIENT RESTING IN BED. BREAKFAST ORDERED. PATIENT D10 GTT DECREASED TO 25MLS PER MD CHRISTIAN AT 0745 THIS AM. RASCH IN TO SEE PATIENT. NO OTHER CHANGES AT THIS TIME. PATIENT ASSESSMENT COMPLETED. PATIENT BREATH SOUNDS CLEAR. BOWEL TONES ACTIVE. PATIENT DENIES ANY NEEDS. BLOOD SUGAR CHECKED AT 0825. WILL CONTINUE TO CLOSELY MONITOR.
--- NOTE | 2019-07-26 10:00 | NUR ---
AM CARES PROVIDED. SAT PATIENT UP IN BED AND ASSISTED HER WITH EATING. PATIENT ATE 75% OF HER MEAL AND DRANK 1 ENSURE. PATIENT TOLERATED WELL. WILL GET PATIENT UP OUT OF BED. NO OTHER NEEDS AT THIS TIME. WILL CONTINUE TO CLOSELY MONITOR. BLOOD SUGAR CHECKED AT 1030. D10 GTT TURNED OFF AT 0930 PER MD CHRISTIAN. WILL CONTINUE TO CLOSELY MONITOR.
[2019-07-26] MEDS ORDERED: LANTUS SOL100 UNIT/1 SUB-Q (12:36)
--- NOTE | 2019-07-26 12:45 | NUR ---
PATIENTS ASSESSMENT COMPLETED. PROVIDED BEDBATH AND CHANGED PATIENTS ATTENDS. ASSISTED PATIENT UP TO THE CHAIR AND PROVIDED LUNCH. REVIEWED INSULIN ORDER WITH MD PRIOR TO ADMINISTERING INSULIN MD AGREEABLE TO GIVING INSULIN. PATIENT WILL BE DISCHARGED THIS AFTERNOON. NO OTHER ISSUES AT THIS TIME. PATIENT RESTING COMFORTABLY IN THE CHAIR AFTER LUNCH. PATIENT ATE 100% OF MEAL.
--- NOTE | 2019-07-26 13:00 | NUR ---
Notified by Dr. Mahoney, pt has stablized and may dc. Called and spoke with Bridget. she will pick pt up at 1400. Rn will call the front and notify.
--- NOTE | 2019-07-26 13:07 | NUR ---
WALKED BY PATIENTS ROOM AND PATIENT NOTED TO HAVE VOMIT ON HER GOWN. PATIENT IS SITTING UP IN THE CHAIR AT A 90 DEGREE ANGLE. PATIENT DENIES NAUSEA AND ISNT SURE WHY SHE THREW UP. PATIENTS SPO2 100% ON RA. PATIENT DENEIS A BELLY ACHE. PATIENT JUST FINISHED HER LUNCH ABOUT 15 MINUTES PRIOR TO THIS HAPPENEING. MD CHRISTIAN AWARE. NO NEW ORDERS.
[2019-07-26] MEDS ORDERED: LANTUS100 UNITS/ SUB-Q (13:27)
[2019-07-26] MEDS ORDERED: NYSTOP60 GM TOP (13:36)
[2019-07-26] MEDS ORDERED: TYLENOL325 MG PO (13:37)
[2019-07-26] MEDS ORDERED: ASPERCREME 1035.4 GM TOP (13:38)
--- NOTE | 2019-07-26 13:44 | NUR ---
MED REC COMPLETE
--- NOTE | 2019-07-26 14:40 | NUR ---
PATIENTS CAREGIVER MECCA ARRIVED TO TAKE PATIENT HOME. REVIEWED DISCHARGE INSTRUCTIONS. ONLY CHANGE IN MEDICATIONS WAS LANTUS TO 8UNITS NIGHTLY. NEW PRESCRIPTIONS GIVEN WITH DISCHARGE INSTRUCTIONS. ALL BELONINGS SENT WITH PATIENT. PATIENT DENEIS ANY OTHER NEEDS. MECCA DENIES ANY OTHER QUESTIONS. MECCA PUSHED PATIENT OUT OF CCU IN HER WHEELCHAIR.
== END 2019-07-26 14:45 | disposition home or self-care (01) ==
LOC: ED 18:51 → CCU 18:54
PROVIDERS: ADMIT Student in an Organized Health Care Education/Training Program
DX: T38.3X1A Poisoning by insulin and oral hypoglycemic [antidiabetic] drugs, accidental (unintentional), initial encounter (principal); E11.9 Type 2 diabetes mellitus without complications; I10 Essential (primary) hypertension; I48.91 Unspecified atrial fibrillation; M10.9 Gout, unspecified; Z88.8 Allergy status to other drugs, medicaments and biological substances; Z88.5 Allergy status to narcotic agent; Z88.7 Allergy status to serum and vaccine; Z79.4 Long term (current) use of insulin; Z79.899 Other long term (current) drug therapy
CPT/HCPCS: 80053; 85025; 96361; 96374; 96375; 96376; 99285; G0378; J1815; J2405; J7121; U0002

== ENCOUNTER 2019-09-12 13:56 | Inpatient (IN) | payer MEDICARE, OTHER ==
[~2019-09-12] VITALS: Ht 167.6 cm; Wt 51.7 kg
--- OUTSIDE RECORDS SUMMARY | ~2019-09-12 | XMS | Encounter Summary ---
Demographics + + + | Address | [address] | | | [place] [address] | + + + | Home Phone | | + + + | Preferred Language | Unknown | + + + | Marital Status | | + + + | Adventist Affiliation | Unknown | + + + | Race | Unknown | + + + | Ethnic Group | Unknown | + + + Author + + + | Author | [facility] | | | and [place] | + + + | Organization | [facility] | | | and [place] | + + + | Address | Unknown | + + + | Phone | Unavailable | + + + Support + + + + + | Name | Relationship | Address | Phone | + + + + + | Sigrid Lennon | ECON | [address] | | | | | [place] [address] | | + + + + + | Valentín Saleh | ECON | [address] | | | | | [place] [address] | | + + + + + | Roberto Carlos Lennon | LEVI | Unknown | | + + + + + Care Team Providers + +------+ + | Care Assembler Tractor Name | Role | Phone | + +------+ + | Francois Pascal MD | PCP | | + +------+ + Reason for Visit + + + | Reason | Comments | + + + | Follow-up | skin procedure | + + + Encounter Details +--------+---------+ + + + | Date | Type | Department | Care Team | Description | +--------+---------+ + + + | 12/05/ | Office | [facility] | Francois Pascal, | Squamous carcinoma | | 2013 | Visit | [facility] [place] | [address] | ([facility]) (Primary Dx) | | | | [address] | [address], | | | | | [place] | [place] [address] | | | | | [address] | [phone] | | | | | [phone] | | | +--------+---------+ + + + Social History + +-------+ [...] + + +---------+ + | No | | | | + + +---------+ + + + + | Sex Assigned at | Date Recorded | | | | + + + | Not on file | | + + + documented as of this encounter Last Filed Vital Signs + + + + + | Vital Sign | Reading | Time Taken | Comments | + + + + + | Blood Pressure | 124/68 | 12/05/2012 4:21 PM | | | | | PDT | | + + + + + | Pulse | 70 | 12/05/2012 4:21 PM | | | | | PDT | | + + + + + | Temperature | - | - | | + + + + + | Respiratory Rate | 20 | 12/05/2012 4:21 PM | | | | | PDT | | + + + + + | Oxygen Saturation | 94% | 12/05/2012 4:21 PM | | | | | PDT | | + + + + + | Inhaled Oxygen | - | - | | | Concentration | | | | + + + + + | Weight | 78 kg (172 lb) | 12/05/2012 4:21 PM | | | | | PDT | | + + + + + | Height | - | - | | + + + + + | Body Mass Index | 29.52 | 11/27/2012 10:52 AM | | | | | PDT | | + + + + + documented in this encounter Progress Notes Francois Pascal MD - 12/05/2012 4:15 PM PDTFormatting of this note might be different f rom the original. Subjective: Patient ID: Alyson Lennon is a 81 y.o. female. 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 Squamous carcinoma Plan: Area of dorsal right wrist was prepped and draped in sterile fashion and a 1 cm ellipse was excised sent to path and the defect was closed with 5-0 nylon with no comps. 2 cc 1% lido was used for anesthesia. documented in this encounter Plan of Treatment +--------+---------+ + + + | Date | Type | Specialty | Care Team | Description | +--------+---------+ + + + | 12/06/ | Office | Cardiology | Stephenie Paul, | | | 2019 | Visit | | MD Bob Sheehan | | | | | | [place], | | | | | | [place] [address] | | | | | | [phone] | | | | | | | | +--------+---------+ + + + documented as of this encounter Visit Diagnoses + + | Diagnosis | + + | Squamous carcinoma - Primary Other malignant neoplasm without specification of site | + + documented in this encounter"
--- OUTSIDE RECORDS SUMMARY | ~2019-09-12 | XMS | Encounter Summary ---
Demographics + + + | Address | [address] | | | [place] [address] | + + + | Home Phone | | + + + | Preferred Language | Unknown | + + + | Marital Status | | + + + | Holiness Affiliation | Unknown | + + + | Race | Unknown | + + + | Ethnic Group | Unknown | + + + Author + + + | Author | [facility] | | | and [place] | + + + | Organization | [facility] | | | and [...] | | | | | [place] [address] | | + + + + + | Valentín Saleh | ECON | [address] | | | | | [place] [address] | | + + + + + | Roberto Carlos Lennon | LEVI | Unknown | | + + + + + Care Team Providers + +------+ + | Care Traveling Operator Name | Role | Phone | + +------+ + | Francois Pascal MD | PCP | | + +------+ + Reason for Visit + + + | Reason | Comments | + + + | Diabetes | | + + + | Chronic Kidney | | | Disease | | + + + Encounter Details +--------+---------+ + + + | Date | Type | Department | Care Team | Description | +--------+---------+ + + + | 04/14/ | Office | [facility] | Francois Pascal, | Primary | | 2016 | Visit | MEDICINE [address] | [address] | osteoarthritis of | | | | [address] [place], | [address], | left ankle (Primary | | | | [place] [address] | [place] [address] | Dx); Left ankle | | | | [phone] | [phone] | pain; CHRONIC KIDNEY | | | | | | DISEASE STAGE III | | | | | | (MODERATE); | | | | | | Essential | | | | | | hypertension; | | | | | | Diabetes mellitus | | | | | | due to underlying | | | | | | condition with | | | | | | hyperglycemia (HCC) | +--------+---------+ + + + Social History [...] + + + | Blood Pressure | 120/70 | 04/14/2015 11:32 AM | | | | | PST | | + + + + + | Pulse | 84 | 04/14/2015 11:32 AM | | | | | PST | | + + + + + | Temperature | 36.2 C (97.2 F) | 04/14/2015 11:32 AM | | | | | PST | | + + + + + | Respiratory Rate | 16 | 04/14/2015 11:32 AM | | | | | PST | | + + + + + | Oxygen Saturation | 98% | 04/14/2015 11:32 AM | | | | | PST | | + + + + + | Inhaled Oxygen | - | - | | | Concentration | | | | + + + + + | Weight | 69.4 kg (153 lb) | 04/14/2015 11:32 AM | | | | | PST | | + + + + + | Height | 157.5 cm (5' 2") | 04/14/2015 11:32 AM | | | | | PST | | + + + + + | Body Mass Index | 27.98 | 04/14/2015 11:32 AM | | | | | PST | | + + + + + documented in this encounter Progress Notes Francois Pascal MD - 04/14/2015 11:45 AM PSTFormatting of this note might be different f rom the original. Subjective: Patient ID: Alyson Lennon is a 84 y.o. female. HPI Gait instability Cerebral contusion, New Carotid Stenosis,50%, She is on baby aspirin rosa m y, one month ago, post fall, She uses a walker and cane, In general she feels a lot weaker than she did a year ago. She can't stand and do things for more than an hour. post cont usion Confusion has resolved, dx of Hyponatremia, Dehydration with acute on chronic RF, He r last fall was October and she completed PT which helps her walk better. Left Ankle OA, post fracture several years ago. She only takes tylenol once before bed whi ch lets her go to sleep. CKD, she drinks 6 glasses of water daily, She avoids all NSAIDS except for tylenol. She f ollows with Kemar Mcclelland today. HTN, Recent BP's have been running in the 120/60 range. There is no longer any SOB or diff iculty getting a deep breath. There has been no chest pain. DM2, There is no PP or P, Glucose has been running around 120-180 in the morning. She is comp[liant with her regimen of insulin and orals. 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 Social History: Reviewed history from 08/11/2011 and no changes required: Born in [facility] for 46 years. and Remarried 2 sons local. Patient has never smoked. Alcohol Use - no Exercise: None Caffeine: Decaf only Living Situation: Lives with spuse Review of Systems Constitutional: no fever, No appetite change, no fatigue. HEENT: Neg ear pain, No nosebleeds,no rhinorrhea,no trouble swallowing and no sinus pressure. Eyes: Neg for pain and no visual disturbance. Respiratory: Neg for cough, no chest tightness, no shortness of breath no wheezing. Cardiovascular: Neg for chest pain, no palpitations and no leg swelling. Gastrointestinal: Neg for nausea,no vomiting,no diarrhea,no constipation no abdominal distention. No Belly pain, no black and no bloody stools, no excessive gas Genitourinary: Negative for urgency, no frequency, no decreased urine volume no difficulty urinating. No Bloody urine Musculoskeletal: Neg for myalgias, no back pain, no joint swelling and No ar thralgias. some joint pain Skin: Neg for color change,no rash and No wounds, no Strange moles Neurological: Neg for dizziness, no Weakness,no light-headedness, no numbness and no headaches. Hematological: Neg for adenopathy. Does not bruise/bleed easily. Psychiatric/Behavioral: Neg for suicidal ideas,no confusion and no agitation. no Depression, no anxiety,no sleep problems Objective: Physical Exam Heent, WNL, No carotid bruit Chest CTAB Heart RR&R /s M Abd S,NT,ND,BS+ Ext, no CCor E Neuro Non-focal Lymph, no cervical, axillary, inguinal adenopathy Musculoskeletal, no gross deformity or loss or range of motion Skin, no gross lesions Assessment: 1. Primary osteoarthritis of left ankle 2. Left ankle pain 3. CHRONIC KIDNEY DISEASE STAGE III (MODERATE) 4. Essential hypertension 5. 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 Increase the novolog. Tramadol trial. She could t ry tylenol TID. RTC 3 months with labs prior. Otherwise continue current medical regimen. documented in this encounter Plan of Treatment +--------+---------+ + + + | Date | Type | Specialty | Care Team | Description | +--------+---------+ + + + | 12/06/ | Office | Cardiology | Stephenie Paul, | | | 2019 | Visit | | [address] | | | | | | [place], | | | | | | [place] [address] | | | | | | [phone] | | | | | | | | +--------+---------+ + + + documented as of this encounter Results Hemoglobin A1C (07/17/2015 10:30 AM PDT) + +---------+ + + + | Component | Value | Ref Range | Performed | Pathologist | | | | | At | Signature | + +---------+ + + + | Hemoglobin | 8.1 (H) | 4.3 - 6.0 % | [facility] | | | A1c | | | [facility] | | | | | | [facility]ICAL | | | | | | CENTER - | | | | | | LABORATORY | | + +---------+ + + + | Estimated | 186 | mg/dL | [facility] | | | Average | | | [facility] | | | Glucose | | | MEDICAL | | | | | | CENTER - | | | | | | LABORATORY | | + +---------+ + + + + + | Specimen | + + | Blood | + + + + + + + | Performing | Address | City/State/Zipcode | Phone Number | | Organization | | | | + + + + + | [facility] | [address] | [place] | [phone] | | [facility] | | [address] | | | - LABORATORY | | | | + + + + + Comprehensive Metabolic Panel (07/17/2015 10:30 AM PDT) + + + + + + | Component | Value | Ref Range | Performed | Pathologist | | | | | At | Signature | + + + + + + | Na | 132 (L) | 136 - 149 | [facility] | [...] + + + + | Cl | 96 (L) | 98 - 109 mmol/L | [facility] | | | | | | [facility] | | | | | | MEDICAL | | | | | | CENTER - | | | | | | LABORATORY | | + + + + + + | CO2 | 29 | 24 - 31 mmol/L | [facility] | | | | | | [facility] | | | | | | MEDICAL | | | | | | CENTER - | | | | | | LABORATORY | | + + + + + + | Anion Gap | 7 | 3 - 16 mmol/L | [facility] | | | | | | [facility] | | | | | | MEDICAL | | | | | | CENTER - | | | | | | LABORATORY | | + + + + + + | Glucose | 325 (H) | 70 - 109 mg/dL | [facility] | | | | | | [facility] | | | | | | MEDICAL | | | | | | CENTER - | | | | | | LABORATORY | | + + + + + + | BUN | 31 (H) | 7 - 18 mg/dL | [facility] | | | | | | [facility] | | | | | | [facility] | | | | | | CENTER - | | | | | | LABORATORY | | + + + + + + | Creatinine | 1.21 | 0.60 - 1.30 | [facility] | | | | | mg/dL | [facility] | | | | | | [facility] | | | | | | CENTER - | | | | | | LABORATORY | | + + + + + + | eGFR if not | 42 (L)Comment: | >=60 | [facility] | | | | GLOMERULAR FILTRATION | mL/min/1.73m2 | [facility] | | | [place] | RATE,ESTIMATED | | MEDICAL | | | | mL/min/1.89y6Rlmm than | | CENTER - | | [...] + + + + | Calcium | 9.6 | 8.3 - 10.5 | [facility] | | | | | mg/dL | [facility] | | | | | | MEDICAL | | | | | | CENTER - | | | | | | LABORATORY | | + + + + + + | Albumin | 3.6 | 3.2 - 5.0 g/dL | [facility] | | | | | | [facility] | | | | | | MEDICAL | | | | | | CENTER - | | | | | | LABORATORY | | + + + + + + | Bilirubin | 0.6 | 0.1 - 1.5 mg/dL | [facility] | | | Total | | | [facility] | | | | | | MEDICAL | | | | | | CENTER - | | | | | | LABORATORY | | + + + + + + | Total | 6.9 | 6.0 - 7.8 g/dL | [facility] [...] + + + + | ALT | 14 | 6 - 45 U/L | [facility] | | | | | | [facility] | | | | | | MEDICAL | | | | | | CENTER - | | | | | | LABORATORY | | + + + + + + | Alkaline | 61 | 40 - 110 U/L | [facility] | | | Phosphatase | | | [facility] | | | | | | MEDICAL | | | | | | CENTER - | | | | | | LABORATORY | | + + + + + + | Globulin | 3.3 | 2.1 - 3.8 g/dL | [facility] [...] + + + + | BUN/Creatin | 25.6 | | [facility] | | | ine [...] | + + + + + | [facility] | [address] | [place] | [phone] | | [facility] | | [address] | | | - LABORATORY | | | | + + + + + CBC with Differential (07/17/2015 10:30 AM PDT) + + + + + + | Component | Value | Ref Range | Performed | Pathologist | | | | | At | Signature | + + + + + + | White Blood | 12.7 (H) | 4.0 - 11.0 K/uL | [facility] | | | Cells | | | [facility] | | | | | | MEDICAL | | | | | | CENTER - | | | | | | LABORATORY | | + + + + + + | Red Blood | 3.98 | 3.70 - 5.20 | [facility] | | | Cells | | M/uL | [facility] | | | | | | MEDICAL | | | | | | CENTER - | | | | | | LABORATORY | | + + + + + + | Hemoglobin | 13.3 | 11.5 - 16.0 | [facility] | | | | | g/dL | [facility] | | | | | | MEDICAL | | | | | | CENTER - | | | | | | LABORATORY | | + + + + + + | Hematocrit | 39.9 | 34.0 - 47.0 % | [facility] | | | | | | [facility] | | | | | | MEDICAL | | | | | | CENTER - | | | | | | LABORATORY | | + + + + + + | MCV | 100.2 | 83.0 - 101.0 fL | [facility] | | | | | | [facility] | | | | | | MEDICAL | | | | | | CENTER - | | | | | | LABORATORY | | + + + + + + | MCH | 33.4 | 28.0 - 35.0 pg | [facility] | | | | | | [facility] | | | | | | MEDICAL | | | | | | CENTER - | | | | | | LABORATORY | | + + + + + + | MCHC | 33.3 | 32.0 - 36.0 | [facility] | | | | | g/dL | [facility] | | | | | | MEDICAL | | | | | | CENTER - | | | | | | LABORATORY | | + + + + + + | RDW-CV | 13.6 | <15.0 % | [facility] | | | | | | [facility] | | | | | | MEDICAL | | | | | | CENTER - | | | | | | LABORATORY | | + + + + + + | Platelet | 234 | 140 - 440 K/uL | [facility] | | | Count | | | [facility] | | | | | | MEDICAL | | | | | | CENTER - | | | | | | LABORATORY | | + + + + + + | MPV | 8.2 | fL | [facility] | | | | | | [facility] | | | | | | MEDICAL | | | | | | CENTER - | | | | | | LABORATORY | | + + + + + + | % | 70.5 | 45.0 - 82.0 % | [facility] | | | Neutrophils | | | [facility] | | | | | | MEDICAL | | | | | | CENTER - | | | | | | LABORATORY | | + + + + + + | % | 18.7 (L) | 20.0 - 45.0 % | [facility] | | | Lymphocytes | | | [facility] | | | | | | MEDICAL | | | | | | CENTER - | | | | | | LABORATORY | | + + + + + + | % Monocytes | 10.7 | 4.0 - 12.0 % | [facility] | | | | | | [facility] | | | | | | MEDICAL | | | | | | CENTER - | | | | | | LABORATORY | | + + + + + + | % | 0.0 | 0.0 - 5.0 % | [facility] | | | Eosinophils | | | [facility] | | | | | | MEDICAL | | | | | | CENTER - | | | | | | LABORATORY | | + + + + + + | % Basophils | 0.1 | 0.0 - 1.0 % | [facility] | | | | | | [facility] | | | | | | MEDICAL | | | | | | CENTER - | | | | | | LABORATORY | | + + + + + + | Absolute | 8.90 (H) | 1.80 - 8.50 | [facility] | | | Neutrophils | | K/uL | [facility] | | | | | | MEDICAL | | | | | | CENTER - | | | | | | LABORATORY | | + + + + + + | Absolute | 2.40 | 0.60 - 3.20 | [facility] | | | Lymphocytes | | K/uL | [facility] | | | | | | MEDICAL | | | | | | CENTER - | | | | | | LABORATORY | | + + + + + + | Absolute | 1.40 (H) | 0.00 - 1.00 | [facility] | | | Monocytes | | K/uL | [facility] | | | | | | MEDICAL | | | | | | CENTER - | | | | | | LABORATORY | | + + + + + + | Absolute | 0.00 | 0.00 - 0.40 | [facility] | | | Eosinophils | | K/uL | [facility] | | | | | | MEDICAL | | | | | | CENTER - | | | | | | LABORATORY | | + + + + + + | Absolute | 0.00 | 0.00 - 0.10 | [facility] | | | Basophils | | K/uL | [facility] | | | | [...] | + + + + + | [facility] 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
--- OUTSIDE RECORDS SUMMARY | ~2019-09-12 | XMS | Encounter Summary ---
Demographics + + + | Address | [address] | | | [place] [address] | + + + | Home Phone | | + + + | Preferred Language | Unknown | + + + | Marital Status | | + + + | Gnosticism Affiliation | Unknown | + + + | Race | Unknown | + + + | Ethnic Group | Unknown | + + + Author + + + | Author | [facility] | | | and [place] | + + + | Organization | [facility] | | | and [place] | + + + | Address | Unknown | + + + | Phone | Unavailable | + + + Support + + + + + | Name | Relationship | Address | Phone | + + + + + | Sigrid Lennon | ECON | [address] | | | | | [place] [address] | | + + + + + | Valentín Saleh | ECON | [address] | | | | | [place] [address] | | + + + + + | Roberto Carlos Lennon | LEVI | Unknown | | + + + + + Care Team Providers + +------+ + | Care Behavior Specialist Name | Role | Phone | + [...] Description | +--------+--------+ + + + | 03/06/ | Refill | [facility] | Francois Pascal, | Medication Refill | | 2011 | | [facility]IC[facility] [place] | [address] | | | | | [address] | [address] [place], | | | | | [place] | [place] [address] | | | | | [address] | [phone] | | | | | [phone] | | | +--------+--------+ + + + [...] + + documented as of this encounter Miscellaneous Notes Telephone Encounter - Diane Penn RN - 03/13/2012 10:09 AM PSTTalked to patient again. She states that she has eaten already this morning, maybe tomorrow she will get labs done.E lectronically signed by Diane Penn RN at 03/13/2012 10:10 AM PSTTelephone Encounter - Naomy mathewsDiane RN - 03/06/2012 10:05 AM PSTTalked to patient. She needs to have labs done. Put in CMP as CBC is already in place. She said she will do it on Tuesday and she is ok f or medications until then. documented in this encounter Plan of Treatment +--------+---------+ + + + | Date | Type | Specialty | Care Team | Description | +--------+---------+ + + + | 12/06/ | Office | Cardiology | Stephenie Paul, | | | 2019 | Visit | | [address] | | | | | | [place], | | | | | | [place] [address] | | | | | | [phone] | | | | | | | | +--------+---------+ + + + documented as of this encounter Results Comprehensive metabolic panel (03/14/2012 9:32 AM PST) + + + + + + | Component | Value | Ref Range | Performed | Pathologist | | | | | At | Signature | + + + + + + | Glucose | 125 (H) | 70 - 109 mg/dL | [facility] | | | | | | [facility] | | | | | | MEDICAL | | | | | | CENTER - | | | | | | LABORATORY | | + + + + + + | Calcium | 10.1 | 8.3 - 10.5 | [facility] | | | | | mg/dL | [facility] | | | | | | MEDICAL | | | | | | CENTER - | | | | | | LABORATORY | | + + + + + + | Alkaline | 51 | 40 - 110 IU/L | [facility] | | | Phosphatase | | | [facility] | | | | | | MEDICAL | | | | | | CENTER - | | | | | | LABORATORY | | + + + + + + | AST | 25 | 10 - 42 IU/L | [facility] | | | | | | [facility] | | | | | | MEDICAL | | | | | | CENTER - | | | | | | LABORATORY | | + + + + + + | ALT | 22 | 6 - 45 IU/L | [facility] | | | | | | [facility] | | | | | | MEDICAL | | | | | | CENTER - | | | | | | LABORATORY | | + + + + + + | Bilirubin | 0.3 | 0.2 - 1.0 mg/dL | [facility] | | | Total | | | [facility] | | | | | | MEDICAL | | | | | | CENTER - | | | | | | LABORATORY | | + + + + + + | Total | 6.4 | 6.0 - 7.8 gm/dL | [facility] | | | Protein | | | [facility] | | | | | | MEDICAL | | | | | | CENTER - | | | | | | LABORATORY | | + + + + + + | Albumin | 3.5 | 3.2 - 5.0 gm/dL | [facility] | | | | | | [facility] | | | | | | MEDICAL | | | | | | CENTER - | | | | | | LABORATORY | | + + + + + + | BUN | 18 | 7 - 18 mg/dL | [facility] | | | | | | [facility] | | | | | | MEDICAL | | | | | | CENTER - | | | | | | LABORATORY | | + + + + + + | Creatinine | 1.18 | 0.60 - 1.30 | [facility] | | | | | mg/dL | [facility] | | | | | | MEDICAL | | | | | | CENTER - | | | | | | LABORATORY | | + + + + + + | Estimated | 44 (L)Comment: For | >60 mL/min/A | [facility] | | | GFR | -Americans, | | [facility] | | | | please multiply the | | MEDICAL | | | | result by 1.210 | | CENTER - | | | | This is an estimated GFR | | LABORATORY | | | | and is based on a | | | | | | standard adult | | | | | | body mass (A=1.73m2) and | | | | | | serum creatinine | | | | + + + + + + | BUN/Creatin | 15.3 | 12 - 20 | [facility] | | | ine Ratio | | | [facility] | | | | | | MEDICAL | | | | | | CENTER - | | | | | | LABORATORY | | + + + + + + | Na | 141 | 136 - 149 mEq/L | [facility] | | | | | | [facility] | | | | | | MEDICAL | | | | | | CENTER - | | | | | | LABORATORY | | + + + + + + | K | 4.0 | 3.5 - 5.1 mEq/l | [facility] | | | | | | [facility] | | | | | | MEDICAL | | | | | | CENTER - | | | | | | LABORATORY | | + + + + + + | Cl | 103 | 98 - 109 mEq/l | [facility] | | | | | | [facility] | | | | | | MEDICAL | | | | | | CENTER - | | | | | | LABORATORY | | + + + + + + | CO2 | 30 | 24 - 31 mEq/L | [facility] | | | | | | [facility] | | | [facility] | | MEDICAL | | | | | | CENTER - | | | | | | LABORATORY | | + + + + + + | Anion Gap | 12.0 | 6.0 - 17.0 | [facility] | | | | | | [facility] | | | | | | MEDICAL | | | | | | CENTER - | | | | | | LABORATORY | | + + + + + + + + | Specimen | + + | Blood specimen | | (specimen) | + + + + + | Narrative | Performed At | + + + | | [facility] | | | [facility] | | [facility] | | | - LABORATORY | + + + + + + + + | Performing | Address | City/State/Zipcode | Phone Number | | Organization | | | | + + + + + | [facility] | [address] | [place] | [phone] | | [facility] | | [address] | | | - LABORATORY | | | | + + + + + | [facility] | [address] | [place], [place] | | | [facility] | | [id number] | | | - LABORATORY | | | | + + + + + documented in this encounter Visit Diagnoses + + | Diagnosis | + + | ARTHRITIS, CHRONIC - Primary Arthropathy, unspecified, site unspecified | + + documented in this encounter"
--- OUTSIDE RECORDS SUMMARY | ~2019-09-12 | XMS | Encounter Summary ---
Demographics + + + | Address | [address] | | | [place] [address] | + + + | Home Phone | | + + + | Preferred Language | Unknown | + + + | Marital Status | | + + + | Mormon Affiliation | Unknown | + + + | Race | Unknown | + + + | Ethnic Group | Unknown | + + + Author + + + | Author | [facility] | | | and [place] | + + + | Organization | [facility] | | | and [place] | + + + | Address | Unknown | + + + | Phone | Unavailable | + + + Support + + + + + | Name | Relationship | Address | Phone | + + + + + | Sigrid Lennon | ECON | [address] | | | | | [place] [address] | | + + + + + | Valentín Saleh | ECON | [address] | | | | | [place] [address] | | + + + + + | Roberto Carlos Lennon | LEVI | Unknown | | + + + + + Care Team Providers + +------+ + | Care Manager Statistical Name | Role | Phone | + +------+ + | Vernon Pascal MD | PCP | | + +------+ + Reason for Visit +---------+--------+ + | Reason | Onset | Comments | | | Date | | +---------+--------+ + | Results | 06/23/ | | | | 2012 | | +---------+--------+ + Encounter Details +--------+ + + + + | Date | Type | Department | Care Team | Description | +--------+ + + + + | 06/23/ | Telephone | [facility] | Airam Menjivar | Results | | 2012 | | MEDICINE [address] | [place] | | | | | [place], | | | | | | [place] [address] | | | | | | [phone] | | | +--------+ + + + [...] this encounter Miscellaneous Notes Telephone Encounter - Airam Menjivar RN - 06/23/2012 2:54 PM PDTPatient has an appoin tment 06/28/2012 el ephone Encounter - Airam Menjivar RN - 06/23/2012 2:53 PM PDTMessage copied by AIRAM WARD on TueJun 23, 2012 1453 ------ Message from: VERNON PASCAL Created: TueJun 23, 2012 1217 Ok for ma to notify patient that he has somewhat abnormal labs and would like to discu ss within a month. d ocumented in this encounter Plan of Treatment +--------+---------+ + + + | Date | Type | Specialty | Care Team | Description | +--------+---------+ + + + | 12/06/ | Office | Cardiology | Stephenie Paul, | | | 2019 | Visit | | [address] [facility] | | | | | | [place], | | | | | | [place] [address] | | | | | | [phone] | | | | | | | | +--------+---------+ + + + documented as of this encounter Visit Diagnoses Not on filedocumented in this encounter"
--- OUTSIDE RECORDS SUMMARY | ~2019-09-12 | XMS | Encounter Summary ---
Demographics + + + | Address | [address] | | | [place] [address] | + + + | Home Phone | | + + + | Preferred Language | Unknown | + + + | Marital Status | | + + + | Gnosticism Affiliation | Unknown | + + + | Race | Unknown | + + + | Ethnic Group | Unknown | + + + Author + + + | Author | [facility] | | | and [place] | + + + | Organization | [facility] | | | and [place] | + + + | Address | Unknown | + + + | Phone | Unavailable | + + + Support + + + + + | Name | Relationship | Address | Phone | + + + + + | Sigrid Lennon | ECON | [address] | | | | | [place] [address] | | + + + + + | Valentín Saleh | ECON | [address] | | | | | [place] [address] | | + + + + + | Roberto Carlos Lennon | LEVI | Unknown | | + + + + + Care Team Providers + +------+ + | Care Personal Financial Counselor Name | Role | Phone | + +------+ + | Francois Pascal MD | PCP | | + +------+ + Reason for Referral Evaluate & Treat (Routine) +--------+ + + + + + | Status | Reason | Specialty | Diagnoses / | Referred By | Referred To | | | | | Procedures | Contact | Contact | +--------+ + + + + + | Closed | Specialty | Otolaryngolog | Diagnoses | Morasch, | Jason Peoples | | | Services | y | Glossitis | Francois Tello MD | EMD [address] | | | Required | | | [address] | | | | | | [address] | [address] | | | | | | [place] | | | | | | [place], [place] | [place] [address] | | | | | | [address] | Phone: | | | | | | Phone: | [phone] | | | | | | [phone] | Fax: | | | | | | Fax: | [phone] | | | | | | [phone] | | +--------+ + + + + + Encounter Details +--------+ + + + + | Date | Type | Department | Care Team | Description | +--------+ + + + + | 11/16/ | Orders Only | [facility] | Francois Pascal, | Glossitis (Primary | | 2016 | | MEDICINE [address] | [address] | Dx) | | | | [address] [place], | [address] [place], | | | | | [place] [address] | [place] [address] | | | | | [phone] | [phone] | | | | | | | [...] as of this encounter Plan of Treatment +--------+---------+ + + + | Date | Type | Specialty | Care Team | Description | +--------+---------+ + + + | 12/06/ | Office | Cardiology | Stephenie Paul, | | | 2019 | Visit | | [address] | | | | | | [place], | | | | | | [place] [address] | | | | | | [phone] | | | | | | | | +--------+---------+ + + + + + +--------+ + + | Name | Type | Priori | Associated Diagnoses | Order Schedule | | | | ty | | | + + +--------+ + + | * [facility] | Outpatient | Routin | Glossitis | Ordered: 11/17/2015 | | Otolaryngology - AMB | Referral | e | | | | Referral | | | | | + + +--------+ + + documented as of this encounter Visit Diagnoses + + | Diagnosis | + + | Glossitis - Primary | + + documented in this encounter"
--- OUTSIDE RECORDS SUMMARY | ~2019-09-12 | XMS | Encounter Summary ---
Demographics + + + | Address | [address] | | | [place] [address] | + + + | Home Phone | | + + + | Preferred Language | Unknown | + + + | Marital Status | | + + + | Yarsanism Affiliation | Unknown | + + + | Race | Unknown | + + + | Ethnic Group | Unknown | + + + Author + + + | Author | [facility] | | | and [place] | + + + | Organization | [facility] | | | and [place] | + + + | Address | Unknown | + + + | Phone | Unavailable | + + + Support + + + + + | Name | Relationship | Address | Phone | + + + + + | Sigrid Garcia | ECON | [address] | | | | | [place] [address] | | + + + + + | Valentín Saleh | ECON | [address] | | | | | [place] [address] | | + + + + + | Roberto Carlos Garcia | LEVI | Unknown | | + + + + + Care Team Providers + +------+ + | Care Street Engineer Name | Role | Phone | + +------+ + | Vernon Yoder MD | PCP | | + +------+ + Reason for Visit + + + | Reason | Comments | + + + | Hip Pain | L | + + + Auth/Cert +--------+--------+ + + + + | Status | Reason | Specialty | Diagnoses / | Referred By | Referred To | | | | | Procedures | Contact | Contact | +--------+--------+ + + + + | | | | Diagnoses | | | | | | | Essential | | | | | | | hypertension | | | | | | | Fall at | | | | | | | home, | | | | | | | initial | | | | | | | encounter | | | | | | | Intertrochan | | | | | | | teric | | | | | | | fracture of | | | | | | | left hip, | | | | | | | closed, | | | | | | | initial | | | | | | | encounter | | | | | | | ([facility]) | | | | | | | Procedures | | | | | | | ORIF IM | | | | | | | RODDING | | | | | | | FEMORAL | | | | | | | TROCHANTERIC | | | | | | | NAIL | | | +--------+--------+ + + + + Encounter Details +--------+ + + + + | Date | Type | Department | Care Team | Description | +--------+ + + + + | 07/10/ | Hospital | [facility] | [place], | Intertrochanteric | | 2017 - | Encounter | [facility] SUR[facility] | Vernon Marie MD [address] | fracture of left | | | | [address] [place] | [address] [place] | hip, closed, initial | | 07/13/ | | [place] [address] | [place] [address] | encounter (HCC) | | 2017 | | [phone] | [phone] | (Primary Dx); Fall | | | | | | at home, initial | | | | | He Davis MD | encounter; Essential | | | | | [address] | hypertension; | | | | | [place], [place] | Atrial fibrillation, | | | | | [id number] | unspecified type | | | | | | (HCC); Uncontrolled | | | | | | 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, | | | | | | unspecified long | | | | | | term insulin use | | | | | | status (HCC); | | | | | | Diabetes mellitus | | | | | | due to underlying | | | | | | condition with stage | | | | | | 3 chronic kidney | | | | | | disease, with | | | | | | long-term current | | | | | | use of insulin | | | | | | (HCC); Coronary | | | | | | artery disease | | | | | | involving duckwater | | | | | | coronary artery of | | | | | | duckwater heart without | | | | | | angina pectoris | +--------+ + + + + Social [...] + + + | Blood Pressure | 122/58 | 07/13/2016 7:32 AM | | | | | PDT | | + + + + + | Pulse | 68 | 07/13/2016 8:26 AM | | | | | PDT | | + + + + + | Temperature | 36.3 C (97.3 F) | 07/13/2016 7:32 AM | | | | | PDT | | + + + + + | Respiratory Rate | 18 | 07/13/2016 7:32 AM | | | | | PDT | | + + + + + | Oxygen Saturation | 97% | 07/13/2016 7:32 AM | | | | | PDT | | + + + + + | Inhaled Oxygen | - | - | | | Concentration | | | | + + + + + | Weight | 72.4 kg (159 lb 9.8 | 07/13/2016 5:00 AM | | | | oz) | PDT | | + + + + + | Height | 167.6 cm (5' 6") | 07/10/2016 8:43 AM | | | | | PDT | | + + + + + | Body Mass Index | 25.76 | 07/10/2016 8:43 AM | | | | | PDT | | + + + + + documented in this encounter Functional Status + + + [...] + + documented as of this encounter Discharge Summaries Josiah Eddy MD - 07/13/2016 12:12 PM PDT [facility] DISCHARGE SUMMARY Pt. Name/Age/: Alyson Garcia 85 y.o. 1930 Date of Admission: 07/10/2016 Date of Discharge: 07/13/2016 Admitting Physician: He Davis MD Primary Care Provider: Vernon Yoder MD Discharging Physician: Josiah Eddy MD DISCHARGE DIAGNOSES: 1. Left intertrochanteric hip fracture 2. Ischemic heart disease, status post myocardial infarction 1994 and 1996, status post co ronary artery bypass grafting and VSD patch, 1996 3. Type II diabetes mellitus, insulin and Januvia treated 4. 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 Previous history of CHF with retained left ventricular function (LVF equals 0.55). 6. History of skin cancers with evidence of clinical skin cancers on the forehead at the t evangelina of discharge 7. 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 8. Hypertension 9. Paroxysmal atrial fibrillation, rate controlled DISCHARGE MEDICATIONS: Discharge Medications New Medications Details acetaminophen 325 mg tablet Take 2 tablets by mouth every 6 hours as needed for Pain. aka: TYLENOL bisacodyl [address] 1 suppository rectally Daily as needed for Constipation. aka: DULCOLAX docusate sodium 250 MG capsule Take 1 capsule by mouth 2 times daily. aka: COLACE HYDROcodone-acetaminophen 5-325 mg per tablet Take 1 tablet by mouth every 4 hours as needed for Pain. aka: NORCO insulin lispro 100 units/mL injection (pen) Inject 0-12 Units under the skin 4 times daily (with meals and nightly). aka: humaLOG KWIKPEN lactulose 10 g/15 mL solution Take 30 mLs by mouth every hour as needed (up to 3 doses in 24 hours). polyethylene glycol packet Take 1 diluted packet by mouth Daily as needed. aka: MIRALAX rivaroxaban 10 mg tablet Take 1 tablet by mouth Daily. aka: XARELTO Changed Medications Details allopurinol 100 mg tablet TAKE ONE TABLET BY MOUTH TWICE A DAY What changed: What Changed: Instructions aka: ZYLOPRIM LANTUS 100 units/mL injection (vial) Generic drug: insulin glargine 10 units every morning and 10 units every evening What changed: additional instructions methotrexate 2.5 mg tablet Take 5 tablets by mouth Once a week. Indications: Autoimmune stomatitis What changed: What Changed: Instructions Start: 08/09/2016 Unchanged Medications Details aspirin EC 81 MG EC tablet Generic drug: aspirin Take 1 tablet by mouth Daily. atorvaSTATin 40 mg tablet Take 1 tablet by mouth nightly. aka: LIPITOR CALCIUM 500 PO Take 1 capsule by mouth Daily. colchicine 0.6 mg tablet 1-2 tablets by mouth as needed folic acid 1 mg tablet Take 1 tablet by mouth Daily. lisinopril 20 mg tablet TAKE ONE TABLET BY MOUTH EVERY DAY aka: PRINIVIL, ZESTRIL metoprolol succinate 200 mg ER tablet TAKE ONE TABLET BY MOUTH EVERY DAY aka: TOPROL-XL multivitamin tablet Take 1 by mouth daily Discontinued Medications amLODIPine 5 mg tablet aka: NORVASC furosemide 40 mg tablet aka: LASIX insulin aspart 100 units/mL injection aka: NOVOLOG SITagliptin 100 mg tablet aka: JANUVIA DISCHARGE INSTRUCTIONS: Follow-up Information Follow up with [facility] . Specialty: [facility] Facility Contact information: [address] [place] [facility] [address] Soriano for orthopedic follow-up in 7-[address] Capone for follow-up in 2 weeks PENDING RESULTS: HOSPITAL COURSE: Please refer to the H&P for full details. In short This 85-year-old female presented foll owing a fall with left hip pain. Radiographs in the emergency room showed evidence of a int ertrochanteric fracture. She was seen in consultation by Dr. Ru Soriano and taken to surg [facility] on 07/10 for ORIF with intramedullary nena placement. The patient did well postoperatively without angina, heart failure, or other significant complications. She has a previous hist ory of heart attack with bypass grafting and has had heart failure in the past. Prior to ad mission she received Lantus 60 units twice daily and by report Humalog 37 units with meals i n addition to Januvia 100 mg daily. In the hospital she is being controlled with a moderate sliding scale Humalog regimen only with the expectation of sugars will rise she was placed on Lantus 10 units twice daily and continued on a moderate sliding scale. Shahid has not b een reinitiated yet. The patient also has a history of being assessed for stomatitis approx imately 20 years ago at [facility] and was advised they thought this was autoimmune but does not r ecognize words Bechet's or Crohn's disease. She has been on 12.5 mg of methotrexate for the past 20 years I did advise her over time these drugs can be dose reduced and/or weaned comp letely. To facilitate healing I have held her methotrexate for one month and recommended be reinitiated at that time and certainly consideration of a dosage reduction to 10 mg could b e made at that time based on her course. Per Dr. Soriano she is nonweightbearing for the first 6 weeks and he will assess at that ryan e whether or not weightbearing as tolerated. Currently for therapy she is touch weight-bear alone. Care and orders relative to the patient's hip surgery should be directed toward Dr. Soriano and her PCP at the time of discharge will be Dr. Capone. Rivaroxiban will be continued unti l her weightbearing status improves especially in light of previous DVT. PHYSICAL EXAM: Temp: 36.3 C (97.3 F), Pulse: 68, Resp: 18, BP: 122/58 mmHg, SpO2 97 % on room air at f low rate 1.5L/min Temp Min: 36.3 C (97.3 F) Max: 36.9 C (98.4 F) Weight: 69.854 kg (154 lb) Patient seen and examined by me on discharge day Greater than 30 minutes were spent on discharge and coordination of post-hospital care. Electronically signed by: Josiah Eddy MD, 07/13/2016 12:13 [facility] [facility] Portions of this chart may have been created with [employer] voice recognition software. Occasi onal wrong-word or sound-alike substitutions may have occurred due to the inherent greene itations of voice recognition software. Please read the chart carefully and recognize, using context, where these substitutions have occurred documented in this encounter Medications at Time of Discharge + + + +---------+ + + | Medication | Sig | Dispensed | Refills | Start | End Date | | | | | | Date | | + + + +---------+ + + | acetaminophen | Take 2 tablets by | 120 | 0 | 07/14/19 | | | (TYLENOL) 325 mg | mouth every 6 hours | tablet | | 17 | 9 | | tablet | as needed for Pain. | | | | | + + + +---------+ + + | allopurinol | TAKE ONE TABLET BY | 180 | 2 | 12/19/19 | | | (ZYLOPRIM) 100 mg | MOUTH TWICE A DAY | tablet | | 16 | 9 | | tablet | | | | | | + + + +---------+ + + | aspirin (ASPIRIN | Take 1 tablet by | | 0 | 01/12/20 | | | EC) 81 MG EC tablet | mouth Daily. | | | 16 | 9 | + + + +---------+ + + | atorvaSTATin | Take 1 tablet by | 90 | 3 | 02/17/20 | | | (LIPITOR) 40 mg | mouth nightly. | tablet | | 16 | 9 | | tabletIndications: | | | | | | | Dyslipidemia | | | | | | + + + +---------+ + + | bisacodyl | Place 1 suppository | | 0 | 07/14/19 | | | (DULCOLAX) 10 mg | rectally Daily as | | | 17 | 9 | | suppository | needed for | | | | | | | Constipation. | | | | | + + + +---------+ + + | | Take 1 capsule by | | 0 | | | | Rbdykex-Qftkijhhs-Eq | mouth Daily. | | | | 8 | | joyin D (CALCIUM 500 | | | | | | | PO) | | | | | | + + + +---------+ + + | colchicine 0.6 mg | 1-2 tablets by mouth | | 0 | 10/01/19 | | | tablet | as needed | | | 11 | 8 | + + + +---------+ + + | docusate sodium | Take 1 capsule by | | 0 | 07/14/19 | | | (COLACE) 250 MG | mouth 2 times daily. | | | 17 | 7 | | capsule | | | | | | + + + +---------+ + + | folic acid 1 mg | Take 1 tablet by | 90 | 1 | 03/03/20 | | | tablet | mouth Daily. | tablet | | 16 | 9 | + + + +---------+ + + | | Take 1 tablet by | 30 | 0 | 07/14/19 | | | HYDROcodone-acetamin | mouth every 4 hours | tablet | | 17 | 7 | | ophen (NORCO) 5-325 | as needed for Pain. | | | | | | mg per tablet | | | | | | + + + +---------+ + + | insulin glargine | 10 units every | 50 mL | 6 | 07/14/19 | | | (LANTUS) 100 | morning and 10 units | | | 17 | 8 | | units/mL injection | every evening | | | | | | (vial)Indications: | | | | | | | Diabetes mellitus | | | | | | | due to underlying | | | | | | | condition with stage | | | | | | | 3 chronic kidney | | | | | | | disease, with | | | | | | | long-term current | | | | | | | use of insulin (HCC) | | | | | | + + + +---------+ + + | insulin lispro | Inject 0-12 Units | 10 mL | 0 | 07/14/19 | | | (HUMALOG KWIKPEN) | under the skin 4 | | | 17 | 7 | | 100 units/mL | times daily (with | | | | | | injection (pen) | meals and nightly). | | | | | + + + +---------+ + + | lactulose 10 g/15 | Take 30 mLs by mouth | 320 mL | 0 | 07/14/19 | | | mL solution | every hour as | | | 17 | 7 | | | needed (up to 3 | | | | | | | doses in 24 hours). | | | | | + + + +---------+ + + | lisinopril | TAKE ONE TABLET BY | 30 | 11 | 11/05/19 | | | (PRINIVIL, ZESTRIL) | MOUTH EVERY DAY | tablet | | 16 | 9 | | 20 mg tablet | | | | | | + + + +---------+ + + | methotrexate 2.5 | Take 5 mg by mouth | 20 | 2 | 08/10/19 | | | mg | Once a week. | tablet | | 17 | 9 | | tabletIndications: | Indications: | | | | | | Rheumatoid Arthritis | Rheumatoid Arthritis | | | | | + + + +---------+ + + | metoprolol | TAKE ONE TABLET BY | 90 | 3 | 10/22/19 | | | succinate | MOUTH EVERY DAY | tablet | | 16 | 8 | | (TOPROL-XL) 200 mg | | | | | | | ER tablet | | | | | | + + + +---------+ + + | multivitamin | Take 1 by mouth | | 0 | 11/18/19 | | | (THERAGRAN) per | daily | | | 12 | 9 | | tablet | | | | | | + + + +---------+ + + | polyethylene | Take 1 diluted | | 0 | 07/14/19 | | | glycol (MIRALAX) | packet by mouth | | | 17 | 9 | | packet | Daily as needed. | | | | | + + + +---------+ + + | rivaroxaban | Take 1 tablet by | 40 | 0 | 07/14/19 | | | (XARELTO) 10 mg | mouth Daily. | tablet | | 17 | 8 | | tablet | | | | | | + + + +---------+ + + documented as of this encounter Progress Notes He Davis MD - 07/12/2016 3:50 PM PDT [facility] Patient: Alyson Garcia : 1930: Age: 85 y.o. MedRec: [id number] PCP: Vernon Yoder MD Admission date: 07/10/2016 Hospital day # : 2 Physician author: He Davis MD Today: 07/12/2016 SUBJECTIVE: Patient Laying bed comfortably denies any chest pain shortness of breath fever chills naus ea vomiting or abdominal pain. Continues complain off Mild pain in the left hip. VITALS: Temp: 37.3 C (99.1 F), Pulse: 76, Resp: 18, BP: 110/56 mmHg, SpO2 97 % (oxygen off for room air oximetry) on nasal cannula at flow rate 1.5L/min Temp Min: 36.7 C (98.1 F) Max: 37.5 C (99.5 F) Weight: 69.854 kg (154 lb) I/O last 3 completed shifts: In: 1568 [P.O.:980; I.V.:588] Out: 1750 [Urine:1750] I/O this shift: In: 200 [P.O.:200] Out: 125 [Urine:125] PHYSICAL EXAM: Gen Mckenzie - Pleasant elderly white female, alert, cooperative and no distress Head - Normocephalic, without obvious abnormality, atraumatic Eyes - PERRL, conjunctiva/corneas clear, EOM's intact both eyes ENT - mucous membranes moist Neck - supple Lungs - clear to auscultation, no wheezes or rales and unlabored breathing Heart - normal rate, regular rhythm, normal S1, S2, no murmurs, rubs, clicks or gallops Abdomen - soft, non-tender, without masses or organomegaly Extremities - no peripheral edema, no clubbing or cyanosis Skin - no rashes Neurologic - Alert and oriented x 2. CN II-XII intact. DIAGNOSTIC STUDIES: Available data and images were reviewed personally. Significant results and findings are a ddressed here or in the Assessment and Plan. Recent Results (from the past 24 hour(s)) POC Glucose Result Value Ref Range Glucose, POC 180 (H) 70-150 mg/dL POC Glucose Result Value Ref Range Glucose, POC 153 (H) 70-150 mg/dL CBC with Differential Result Value Ref Range WBC 14.3 (H) 4.0-11.0 K/uL RBC 3.50 (L) 3.70-5.20 M/uL Hgb 11.8 11.5-16.0 g/dL Hct 33.9 (L) 34.0-47.0 % MCV 97.1 83.0-101.0 fL MCH 33.7 28.0-35.0 pg MCHC 34.8 32.0-36.0 g/dL RDW-CV 13.9 <15.0 % Platelet Count 157 140-440 K/uL MPV 9.0 fL % Neutrophils 57.7 45.0-82.0 % % Lymphocytes 18.1 (L) 20.0-45.0 % % Monocytes 18.7 (H) 4.0-12.0 % % Eosinophils 4.8 0.0-5.0 % % Basophils 0.7 0.0-1.0 % Absolute Neutrophils 8.30 1.80-8.50 K/uL Absolute Lymphocytes 2.60 0.60-3.20 K/uL Absolute Monocytes 2.70 (H) 0.00-1.00 K/uL Absolute Eosinophils 0.70 (H) 0.00-0.40 K/uL Absolute Basophils 0.10 0.00-0.10 K/uL Comprehensive Metabolic Panel Result Value Ref Range NA 137 136-149 mmol/L K 3.5 3.5-5.1 mmol/L CL 99 98-109 mmol/L CO2 26 24-31 mmol/L ANION GAP 12 3-16 mmol/L GLUCOSE 81 70-109 mg/dL BUN 26 (H) 7-18 mg/dL Creatinine, Serum/Plasma 1.25 0.60-1.30 mg/dL eGFR if not 41 (L) >=60 mL/min/1.73m2 CALCIUM 8.5 8.3-10.5 mg/dL ALBUMIN 2.9 (L) 3.2-5.0 g/dL BILIRUBIN TOTAL 1.2 0.1-1.5 mg/dL Total protein 5.8 (L) 6.0-7.8 g/dL AST 23 10-42 U/L ALT 11 6-45 U/L ALK PHOS 41 40-110 U/L GLOBULIN 2.9 2.1-3.8 g/dL Albumin/Globulin ratio 1.0 0.8-2.0 BUN/CREA 20.8 ECG 12 lead Result Value Ref Range INTERPRETATION TEXT Not Confirmed POC Glucose Result Value Ref Range Glucose, POC 128 70-150 mg/dL No results found. Current Facility-Administered Medications: acetaminophen 650 mg Oral Q6H PRN allopurinol 100 mg Oral Daily aspirin 81 mg Oral Daily atorvaSTATin 40 mg Oral Nightly colchicine 0.6 mg Oral Daily PRN dextrose 12.5 g Intravenous PRN docusate sodium 100 mg Oral BID PRN folic acid 1 mg Oral Daily hydrALAZINE 10 mg Intravenous Q4H PRN HYDROcodone-acetaminophen 1 tablet Oral Q4H PRN insulin lispro 0-12 Units Subcutaneous 4x Daily WC and HS lisinopril 20 mg Oral Daily methotrexate 12.5 mg Oral Weekly metoprolol succinate 200 mg Oral Daily oxyCODONE 2.5-10 mg Oral Q3H PRN polyethylene glycol 17 g Oral Daily PRN rivaroxaban 10 mg Oral Daily senna 8.6 mg Oral BID PRN CURRENT MEDICATIONS: Current Facility-Administered Medications Medication Dose Route Frequency Provider Last Rate Last Dose acetaminophen (TYLENOL) tablet 650 mg 650 mg Oral Q6H PRN He Davis MD 650 mg a t 07/12/16 0931 allopurinol (ZYLOPRIM) tablet 100 mg 100 mg Oral Daily He Davis MD 100 mg at 0 07/12/16 09 aspirin EC tablet 81 mg 81 mg Oral Daily He Davis MD 81 mg at 07/12/16 0920 atorvaSTATin (LIPITOR) tablet 40 mg 40 mg Oral Nightly He Davis MD 40 mg at 2028 colchicine tablet 0.6 mg 0.6 mg Oral Daily PRN He Davis MD dextrose 50% injection 12.5 g 12.5 g Intravenous PRN He Davis MD docusate sodium (COLACE) capsule 100 mg 100 mg Oral BID PRN He Davis MD 100 mg at 07/12/16 0919 folic acid tablet 1 mg 1 mg Oral Daily He Davis MD 1 mg at 07/12/16 0920 hydrALAZINE (APRESOLINE) injection 10 mg 10 mg Intravenous Q4H PRN He Davis MD 10 mg at 07/10/16 1808 HYDROcodone-acetaminophen (NORCO) 5-325 mg per tablet 1 tablet 1 tablet Oral Q4H PRN R aef MD Ryan 1 tablet at 07/12/16 1329 insulin lispro (humaLOG KWIKPEN) 100 units/mL injection (pen) 0-12 Units 0-12 Units Goode bcutaneous 4x Daily WC and HS He Davis MD 2 Units at 07/11/16 1736 lisinopril (PRINIVIL, ZESTRIL) tablet 20 mg 20 mg Oral Daily He Davis MD 20 mg at 07/12/16 0917 methotrexate tablet 12.5 mg 12.5 mg Oral Weekly He Davis MD 12.5 mg at 7 1511 metoprolol succinate (TOPROL-XL) ER tablet 200 mg 200 mg Oral Daily He Davis MD 200 mg at 07/12/16 0908 oxyCODONE (ROXICODONE) tablet 2.5-10 mg 2.5-10 mg Oral Q3H PRN Andrei Carey 2.5 mg at 07/12/16 1024 polyethylene glycol (MIRALAX) powder 17 g 17 g Oral Daily PRN He Davis MD 17 g at 07/12/16 0913 rivaroxaban (XARELTO) tablet 10 mg 10 mg Oral Daily He Davis MD 10 mg at 07/12 0919 senna (SENOKOT) tablet 8.6 mg 8.6 mg Oral BID PRN He Davis MD 8.6 mg at 0919 ASSESSMENT and PLAN: There are no hospital problems to display for this patient. #1 Left hip fracture: -s/p OP #2 -Pain is well controlled continue pain management per surgery -PT OT rec SNF, [facility] Giang (p) #2 Hypertension: -Controlled now that her home medications were restarted and her pain is controlled -Continue monitor #3 Chronic diastolic heart failure: -Appears euvolemic -Cont home dose of diuretic, ARB and beta sloane. #4 DM type II: -Insulin-dependent -On very high dose long acting insulin at home (60 units twice a day) -Restart home meds at the time of discharge and continue sliding scale insulin for now #5 New-onset A. Fib: -Rate is controlled, continue color television console monitor -Asymptomatic -Continue Xarelto for anticoagulation *Pending SNF placement DVT Prophylaxis Xarelto Code Status Full Code. Total time of approximately 25 minutes was spent with the patient and/or patient's family, and/or on the patient's floor/unit, of which more than 50% was spent counseling and/or coord ination the patient's care as outlined above. He Davis 07/12/2016 15:51 [facility] Brea Jay RN - 07/12/2016 10:30 AM PDTLate entry: Leave original left hip drsg intact, do not change at this time .. Per Dr. SorianoElectronically signed by Brea Gonzalez RN at 7 1:40 PM Ru Royal MD - 07/12/2016 10:27 AM PDTOrtho: Awake and alert with mild pain dressing intact with small amount of blood tinge NVM intact Continue PT as tolerated Will need SNF placement 10: 28 AM Aliza Bateman RN - 07/11/2016 5:44 PM [id number] report from Ramakrishna , assumed care of this pt. Pt sitting up in chair with chair alarm inplace. Electronically signed by: Aliza Sanchez RN 07/11/2016 17:46 Shelia Acevedo MD - 07/11/2016 1:59 PM PDT [facility] Patient: Alyson Garcia : 1930: Age: 85 y.o. MedRec: [id number] PCP: Vernon Yoder MD Admission date: 07/10/2016 Hospital day # : 1 Physician author: He Davis MD Today: 07/11/2016 SUBJECTIVE: Patient sitting in recliner comfortably denies any chest pain shortness of breath fever ch ills nausea vomiting or abdominal pain. Mild pain in the left hip. VITALS: Temp: 37.2 C (99 F), Pulse: 69, Resp: 18, BP: 110/56 mmHg, SpO2 93 % (Unable to maintai n >90% O2) on nasal cannula at flow rate 2L/min Temp Min: 35.8 C (96.4 F) Max: 37.5 C (99.5 F) Weight: 69.854 kg (154 lb) I/O last 3 completed shifts: In: 2087 [I.V.:2087] Out: 1679 [Urine:1650; Blood:30] PHYSICAL EXAM: Gen Mckenzie - Pleasant elderly white female, alert, cooperative and no distress Head - Normocephalic, without obvious abnormality, atraumatic Eyes - PERRL, conjunctiva/corneas clear, EOM's intact both eyes ENT - mucous membranes moist Neck - supple Lungs - clear to auscultation, no wheezes or rales and unlabored breathing Heart - normal rate, regular rhythm, normal S1, S2, no murmurs, rubs, clicks or gallops Abdomen - soft, non-tender, without masses or organomegaly Extremities - no peripheral edema, no clubbing or cyanosis Skin - no rashes Neurologic - Alert and oriented x 2. CN II-XII intact. DIAGNOSTIC STUDIES: Available data and images were reviewed personally. Significant results and findings are a ddressed here or in the Assessment and Plan. Recent Results (from the past 24 hour(s)) POC Glucose Result Value Ref Range Glucose, POC 306 (H) 70-150 mg/dL POC Glucose Result Value Ref Range Glucose, POC 305 (H) 70-150 mg/dL Basic Metabolic Panel Result Value Ref Range NA 135 (L) 136-149 mmol/L K 4.3 3.5-5.1 mmol/L CL 102 98-109 mmol/L CO2 25 24-31 mmol/L ANION GAP 8 3-16 mmol/L GLUCOSE 276 (H) 70-109 mg/dL BUN 25 (H) 7-18 mg/dL Creatinine, Serum/Plasma 1.35 (H) 0.60-1.30 mg/dL eGFR if not 37 (L) >=60 mL/min/1.73m2 CALCIUM 8.3 8.3-10.5 mg/dL BUN/CREA 18.5 CBC no Differential Result Value Ref Range WBC 15.2 (H) 4.0-11.0 K/uL RBC 3.67 (L) 3.70-5.20 M/uL Hgb 12.2 11.5-16.0 g/dL Hct 36.4 34.0-47.0 % MCV 99.3 83.0-101.0 fL MCH 33.2 28.0-35.0 pg MCHC 33.4 32.0-36.0 g/dL RDW-CV 13.8 <15.0 % Platelet Count 174 140-440 K/uL MPV 9.3 fL POC Glucose Result Value Ref Range Glucose, POC 271 (H) 70-150 mg/dL POC Glucose Result Value Ref Range Glucose, POC 286 (H) 70-150 mg/dL POC Glucose Result Value Ref Range Glucose, POC 225 (H) 70-150 mg/dL Xr Chest Ap Portable 07/10/2016 XR CHEST AP PORTABLE 07/10/2016 9:17 AM HISTORY: Dyspnea. COMPARISON: 05/14/2011 Find ings: Stable cardiomegaly and interval increase diffuse prominence and mild indistinctness o f the pulmonary vasculature. Median sternotomy wires are present. Aortic calcifications are present. Bones and soft tissues are unchanged. Bones are diffusely osteopenic. No evidence o f pneumothorax or pleural effusion. Minimal left basilar airspace disease. IMPRESSION - Card iomegaly with signs of mild pulmonary vascular congestion. Dictated and Signed by: Christiano gross MD Electronically signed: 07/10/2016 1:24 PM Fl C-arm Stats No Charge 07/10/2016 No Radiologist interpretation, please see Chart Review. Xr Hip Left 2-3 Views 07/10/2016 XR HIP LEFT 2-3 VIEWS 07/10/2016 1:30 PM HISTORY: intra op. COMPARISON: 07/10/2016 FI NDINGS: See impression. IMPRESSION - 8 intraoperative fluoroscopic spot images were obtained of the left femur which demonstrate interval placement of an antegrade intramedullary femor al nena and proximal dynamic hip screw as well as distal interlocking screws. These are seen stabilizing the known intertrochanteric fracture on the left. Dictated and Signed by: Christiano Ma MD Electronically signed: 07/10/2016 6:38 PM Xr Hip Left 2-3 Views 07/10/2016 XR HIP LEFT 2-3 VIEWS 07/10/2016 9:17 AM HISTORY: fall, deformity. COMPARISON: None . FINDINGS: See impression. IMPRESSION - Intertrochanteric fracture of the left femur with c omplete isolation displacement of the lesser trochanter. Femoral head remains appropriately positioned within the acetabula. Background of mild bilateral hip degenerative change, right greater than left. Extensive bilateral vascular calcifications and surgical clips are seen on the left. Dictated and Signed by: Christiano Ma MD Electronically signed: 07/10/2016 1:23 PM Current Facility-Administered Medications: allopurinol 100 mg Oral Daily amLODIPine 5 mg Oral Daily aspirin 81 mg Oral Daily atorvaSTATin 40 mg Oral Nightly colchicine 0.6 mg Oral Daily PRN dextrose 12.5 g Intravenous PRN diphenhydrAMINE 12.5 mg Intravenous Q4H PRN docusate sodium 100 mg Oral BID PRN folic acid 1 mg Oral Daily furosemide 40 mg Oral BID (8 and 16) hydrALAZINE 10 mg Intravenous Q4H PRN HYDROcodone-acetaminophen 1 tablet Oral Q4H PRN HYDROmorphone 0.25-1 mg Intravenous Q2H PRN insulin glargine 60 Units Subcutaneous 2 times per day insulin lispro 0-12 Units Subcutaneous 4x Daily WC and HS lisinopril 20 mg Oral Daily [START ON 07/12/2016] methotrexate 12.5 mg Oral Weekly metoprolol succinate 200 mg Oral Daily nalbuphine 2.5-5 mg Intravenous Q4H PRN naloxone 0.04 mg Intravenous PRN naloxone 0.4 mg Intravenous Once PRN ondansetron 4 mg Intravenous Q6H PRN oxyCODONE 2.5-10 mg Oral Q3H PRN polyethylene glycol 17 g Oral Daily PRN rivaroxaban 10 mg Oral Daily senna 8.6 mg Oral BID PRN CURRENT MEDICATIONS: Current Facility-Administered Medications Medication Dose Route Frequency Provider Last Rate Last Dose allopurinol (ZYLOPRIM) tablet 100 mg 100 mg Oral Daily He Davis MD 100 mg at 0 07/11/16 0828 amLODIPine (NORVASC) tablet 5 mg 5 mg Oral Daily He Davis MD 5 mg at 07/11/16 0828 aspirin EC tablet 81 mg 81 mg Oral Daily He Davis MD 81 mg at 07/11/16 0828 atorvaSTATin (LIPITOR) tablet 40 mg 40 mg Oral Nightly He Davis MD 40 mg at 2031 colchicine tablet 0.6 mg 0.6 mg Oral Daily PRN He Davis MD dextrose 50% injection 12.5 g 12.5 g Intravenous PRN He Davis MD diphenhydrAMINE (BENADRYL) injection 12.5 mg 12.5 mg Intravenous Q4H PRN Vernon Ring II, MD docusate sodium (COLACE) capsule 100 mg 100 mg Oral BID PRN He Davis MD 100 mg at 07/11/16 1030 folic acid tablet 1 mg 1 mg Oral Daily He Davis MD 1 mg at 07/11/16 0828 furosemide (LASIX) tablet 40 mg 40 mg Oral BID (8 and 16) He Davis MD 40 mg at 07/11/16 0746 hydrALAZINE (APRESOLINE) injection 10 mg 10 mg Intravenous Q4H PRN He Davis MD 10 mg at 07/10/16 1808 HYDROcodone-acetaminophen (NORCO) 5-325 mg per tablet 1 tablet 1 tablet Oral Q4H PRN Katie Davis MD HYDROmorphone (DILAUDID) injection 0.25-1 mg 0.25-1 mg Intravenous Q2H PRN Vernon Ring II, MD insulin glargine (LANTUS SOLOSTAR) 100 units/mL injection (pen) 60 Units 60 Units Subc utaneous 2 times per day He Davis MD 60 Units at 07/11/16 0914 insulin lispro (humaLOG KWIKPEN) 100 units/mL injection (pen) 0-12 Units 0-12 Units Goode bcutaneous 4x Daily WC and HS He Davis MD 4 Units at 07/11/16 1229 lisinopril (PRINIVIL, ZESTRIL) tablet 20 mg 20 mg Oral Daily He Davis MD 20 mg at 07/11/16 0828 [START ON 07/12/2016] methotrexate tablet 12.5 mg 12.5 mg Oral Weekly He Davis MD metoprolol succinate (TOPROL-XL) ER tablet 200 mg 200 mg Oral Daily He Davis MD 200 mg at 07/11/16 0828 nalbuphine (NUBAIN) injection 2.5-5 mg 2.5-5 mg Intravenous Q4H PRN Vernon Ring II, MD 2.5 mg at 07/10/16 1809 naloxone (NARCAN) 0.4 mg/mL injection 0.04 mg 0.04 mg Intravenous PRN Vernon mohan II, MD naloxone (NARCAN) 0.4 mg/mL injection 0.4 mg 0.4 mg Intravenous Once PRN Vernon Ring II, MD ondansetron (ZOFRAN) injection 4 mg 4 mg Intravenous Q6H PRN Vernon Ring II, MD 4 mg at 07/10/16 1653 oxyCODONE (ROXICODONE) tablet 2.5-10 mg 2.5-10 mg Oral Q3H PRN Andrei Carey polyethylene glycol (MIRALAX) powder 17 g 17 g Oral Daily PRN He Davis MD 17 g at 07/11/16 1050 rivaroxaban (XARELTO) tablet 10 mg 10 mg Oral Daily He Davis MD 10 mg at 07/11 0829 senna (SENOKOT) tablet 8.6 mg 8.6 mg Oral BID PRN He Davis MD 8.6 mg at 2030 ASSESSMENT and PLAN: There are no hospital problems to display for this patient. #1 Left hip fracture: -s/p OP #1 -Pain is well controlled continue pain management per surgery -PT OT -Discontinue IV fluids and advance diet #2 Hypertension: -Controlled now that her home medications were restarted and her pain is controlled -Continue monitor #3 Chronic diastolic heart failure: -Appears euvolemic -Cont home dose of diuretic, ARB and beta sloane. *Pending SNF placement DVT Prophylaxis Xarelto Code Status Full Code. Total time of approximately 25 minutes was spent with the patient and/or patient's family, and/or on the patient's floor/unit, of which more than 50% was spent counseling and/or coord ination the patient's care as outlined above. He Davis 07/11/2016 13:59 [facility] Ru Royal MD - 07/11/2016 11:29 AM PDTOrtho: PO day 1 Sitting up in a chair and states very little pain Dressing intact without drainage NVM intact Continue PT, toe touch wt bearing Will probably need SNF placement.Electronically signed by Ru Soriano MD at 07/11 11:31 AM Monica Marie, CARMELITA - 07/10/2016 6:00 PM PDTPt really not able to perform. Michelle Bauman PharmD - 07/10/2016 1:50 PM PDTFormatting of this note might be different fr om the original. PHARMACY SERVICES: ADMISSION MEDICATION REVIEW Alyson Garcia is a 85 y.o. female admitted on 07/10/16. Patient is not a reliable historian. attempted to provide history in room. Location of Patient when reviewed: [x] ED [] Medical Floor Patient s prior to admit medication and over the counter (OTC) medications/herbal supplem ents list obtained from: [x] Verbal interview [] Patient ABLE to recall name, strength, and directions [] Patient UNABLE to recall name, strength, and direction [x] Patient able to recall SOME Name, strength, and directions [] Patient not interviewed or unable to supply information due to: [] Patient/family member provided a complete current medication list or bottles [] MAR from SNF facility: [] Doctor's office: [x] Pharmacy list names: [facility] [x] [place] ASSESSMENT RN (Prescription Monitoring Program) [x] [employer] insurance reported information [] Care Everywhere [] Other sources: Vaccines up to date? Yes No Unsure Influenza [x] [] [] Pneumococcal [x] [] [] Tdap [] [] [x] Shingles [x] [] [] Noted medications discrepancies or medication-related issues: Removed therapy: Medication: Prior to Admission Sig: Reason for Removal: Hydrocodone-acetaminophen 5-325 mg 1 tablet by mouth as needed on 03/31/16 Filled on 01/01/16 Other: Allopurinol 100 mg - patient states she is taking but last filled in December 2015 for 90 days supply. Amlodipine 5 mg - patient unsure if taking, no fills in past 4 months. Patient takes Methotrexate 12.5mg once weekly (on Mondays). Medication review performed and electronically signed by Jose Myers Pathology Supervisor [id number] 13:09 Reviewed by: Michelle Cabrera PHARMD 07/10/2016 13:45 documented in this encounter H&P Notes He Davis MD - 07/10/2016 10:55 AM PDT [facility] HISTORY AND PHYSICAL Pt. Name/Age/: Alyson Garcia 85 y.o. 1930 Date of admission: 07/10/2016 Admitting Physician: He Davis MD Primary Care Provider: Vernon Yoder MD CHIEF COMPLAINT: Mechanical fall and left hip pain HISTORY OF PRESENT ILLNESS: This is a 85 y.o. female who presents with Left hip pain after she sustained a mechanical fall in her bathroom the fall was unwitnessed. Patient is a very poor historian secondary to advanced dementia and history obtained from h reuben and family members at bedside. A state that she's been having difficulties walking and multiple falls in the past 6 months they stated that she hasn't been complaining of chest pain or shortness of breath recently. They also confirm that she hasn't taken any of her medications this morning. ER she is laying in bed comfortably denies any chest pain shortness of breath when asked ab out her left hip she states she has some mild pain. 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 Myocardial infarction ([facility]) (1994&1996) CAR with Hx of Myocardial infarction Other abnormal clinical finding Verebral Compression Fractures Glossitis CAD (coronary artery disease) CHF (congestive heart failure) ([facility]) Arthritis Old MA (myocardial infarction) Carotid stenosis H/O ventricular septal defect repair DVT (deep vein thrombosis) in ([facility]) Chronic kidney disease, stage III (moderate) Vitamin D deficiency Osteoporosis OSTEOARTHRITIS, ANKLE, LEFT 01/21/2010 Squamous carcinoma 12/05/2012 Left ankle pain 07/30/2014 Past Surgical History Procedure Laterality Date Coronary artery bypass graft 1996 Grafting for Coronary Artery Bypass x 3 vessels and VSD Patch Cholecystectomy 1986 Previous inferior vena cava filter Cataract removal 2006 OU Hiatal hernia repair 1985 Orif left ankle unstable trimalleolar fracture dislocation 03/24/2009 Breast biopsy Left 1974 FAMILY HISTORY: family history includes Heart attack in her mother; Heart disease in her mother and sister; Other (see comment) in an other family member. There is no history of Kidney disease. SOCIAL HISTORY: reports that she has never smoked. She has never used smokeless tobacco. She reports that she does not drink alcohol or use illicit drugs. REVIEW OF SYSTEMS: A complete 10-system review was otherwise negative except as noted in the HPI. HOME MEDICATIONS: Previous Medications ALLOPURINOL (ZYLOPRIM) 100 MG TABLET TAKE ONE TABLET BY MOUTH TWICE A DAY AMLODIPINE (NORVASC) 5 MG TABLET TAKE ONE TABLET BY MOUTH EVERY DAY ASPIRIN (ASPIRIN EC) 81 MG EC TABLET Take 1 tablet by mouth Daily. ATORVASTATIN (LIPITOR) 40 MG TABLET Take 1 tablet by mouth nightly. [id number] D (CALCIUM 500 PO) Take 1 capsule by mouth Daily. COLCHICINE 0.6 MG TABLET 1-2 tablets by mouth as needed FOLIC ACID 1 MG TABLET Take 1 tablet by mouth Daily. FUROSEMIDE (LASIX) 40 MG TABLET TAKE ONE TABLET BY MOUTH EVERY DAY HYDROCODONE-ACETAMINOPHEN (NORCO) 5-325 MG PER TABLET Take 1 tablet by mouth as needed. INSULIN ASPART (NOVOLOG) 100 UNITS/ML INJECTION 37 units under the skin TID prior to me als INSULIN GLARGINE (LANTUS) 100 UNITS/ML INJECTION (VIAL) 60 units every morning and 60 u nits every evening LISINOPRIL (PRINIVIL, ZESTRIL) 20 MG TABLET TAKE ONE TABLET BY MOUTH EVERY DAY METHOTREXATE 2.5 MG TABLET TAKE 5 TABLETS BY MOUTH ONCE WEEKLY METOPROLOL SUCCINATE (TOPROL-XL) 200 MG ER TABLET TAKE ONE TABLET BY MOUTH EVERY DAY MULTIVITAMIN (THERAGRAN) PER TABLET Take 1 by mouth daily SITAGLIPTIN (JANUVIA) 100 MG TABLET TAKE ONE TABLET BY MOUTH EVERY DAY ALLERGIES: Allergies Allergen Reactions Codeine Sulfate Nausea And Vomiting Darvon Nausea Only Estrogens Patient can't remember Pneumococcal Vaccines Other (See Comments) Thinks it was a Prevnar, arm became red/sore/swollen VITAL SIGNS: Temp: 36.4 C (97.6 F), Pulse: 70, Resp: 16, BP: (!) 216/84 mmHg, SpO2 (!) 86 % on nasal cannula at flow rate 4L/min Temp Min: 36.4 C (97.6 F) Max: 36.4 C (97.6 F) Weight: 69.854 kg (154 lb) PHYSICAL EXAMINATION: Gen Mckenzie - alert, cooperative and no distress Head - Normocephalic, without obvious abnormality, atraumatic Eyes - PERRL, conjunctiva/corneas clear, EOM's intact both eyes ENT - mucous membranes moist Neck - supple Lungs - clear to auscultation, no wheezes or rales and unlabored breathing Heart - normal rate, regular rhythm, normal S1, S2, no murmurs, rubs, clicks or gallops Abdomen - soft, non-tender, without masses or organomegaly Extremities - no peripheral edema, no clubbing or cyanosis Skin - no rashes Neurologic - Alert and oriented x 1. CN II-XII intact. DIAGNOSTIC STUDIES: Available data and images were reviewed personally. Significant results and findings are a ddressed here or in the Assessment and Plan. Lab Results Component Value Date HGB 14.7 07/10/2016 HCT 43.5 07/10/2016 PLT 217 07/10/2016 WBC 15.9* 07/10/2016 Lab Results Component Value Date NA 140 07/10/2016 K 3.9 07/10/2016 CL 103 07/10/2016 CO2 27 07/10/2016 CREA 1.06 07/10/2016 BUN 17 07/10/2016 PHOS 3.8 04/01/2016 No results found for: POCGLU No results found. EKG: Reviewed independently by me. The tracing shows Normal sinus rhythm with first-degree AV block left axis deviation and white bundle branch block, changes compared to previous EK G ASSESSMENT and PLAN: #1 Left hip fracture: -To the OR later today with Dr. Crawford -Received IV Dilaudid and IV fentanyl pain is currently controlled -PT OT orders placed for postop eval -Nothing by mouth except for meds -Placed on maintenance IV fluids at 75 cc per hour #2 Uncontrolled hypertension: -Likely a combination of the patient missing her meds this morning and pain secondary to fr acture -Oral home antihypertensive started -When necessary IV hydralazine ordered for SBP greater than 180 #3 Chronic diastolic heart failure: -Appears euvolemic -Continue Lasix postop, continue losartan and beta sloane. *Patient currently acceptable surgical risk, would prefer to optimize her blood pressure an d evaluate her urine to rule out infection before proceeding to the OR. We will communicate that to Dr. Crawford. DVT Prophylaxis heparin Code Status Full Code. CMS Documentation I expect this patient will be hospitalized for greater than 2-midnights and expect the post -hospital plan to be discharge to a skilled or intermediate care nursing facility. Total of 45 minutes were required to complete the admission process. Electronically signed by: He Davis MD 07/10/2016 10:55 [facility] documented in this enc ounter Consult Notes Ru Soriano MD - 07/10/2016 10:14 AM PDT [address] [address] CONSULTATION RU SORIANO MD Patient: ALYSON GARCIA Admitting: HE ALONZOOMARI MR #: [id number] LOC: PT TYPE: Adm Date: 07/10/2016 : 1930 ORTHOPEDIC CONSULTATION DATE: 07/10/2016 HISTORY: The patient is an 85-year-old female who slipped and fell this morning while get ting up to use the restroom, injuring her left hip. She was brought to the emergency room c omplaining of a painful deformed left hip. She is quite medically complicated and is admit rachel by the hospitalist for stabilization and I am consulting regarding her hip fracture. PHYSICAL EXAMINATION: GENERAL: Reveals an elderly female who is oriented to person, place and time and is compl aining of left hip pain. Denies other injuries. EXTREMITIES: Examination of the upper ext remities is within normal limits for age. Neurovascular is intact. No obvious deformities and no discomfort to torsional stressing. SPINE: No tenderness. PELVIC: Transpelvic compression: No tenderness. Right lower extremity within normal greene its for age. Sensation, circulation, motor control are intact. Left lower extremity is ob viously shortened and rotated with considerable discomfort to any motion of the hip. Sensa tion, circulation are intact throughout that extremity. IMAGING: X-rays are reviewed. They show a somewhat comminuted intertrochanteric fracture of the left hip. IMPRESSION: Intertrochanteric fracture, left hip. RECOMMENDATION: Would recommend open reduction and internal fixation with intramedullary device when she is medically cleared for surgery. I have discussed that procedure with her and her and stepson who was present, along with alternatives, and possible complic ations, including infection, failure of fixation, nonunion, malunion, need for extensive r ehabilitation, possibility of anesthetic medical complications, etc. They understand these things and state they have no further questions and consent to the procedure. RU SORIANO MD Dictated by RU SORIANO MD 07/10/2016 10:14:52 Transcribed on 07/10/2016 10:51:59 by [facility] job# [id number] Confirmation #: [id number] cc: VERNON YODER MD documented in this encounter ED Notes Em Melendez, DEISY - 07/10/2016 1:11 PM PDTDr. Ring took pt to OR. Personal belongi ngs with pt. Vernon Velasco MD - 07/10/2016 8:40 AM PDTFormatting of this note might be different fro m the original. [facility] Alyson Garcia Emergency Department Encounter Note [address] [place] [address] PCP:Vernon Yoder MD [phone] CHIEF COMPLAINT: Chief Complaint Patient presents with Hip Pain L ED Room: ED11/ED11 HPI Alyson Garcia is a 85 y.o. female who presents to the Emergency Department by ambulance for ev aluation. This patient fell at home today and is complaining of left hip pain. She was tra nsported in by medics and received fentanyl and Zofran in route but was still nauseous on ar rival. It sounds as though this was a mechanical fall. There was no head injury or loss of consciousness. 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 Myocardial infarction ([facility]) (1994&1996) CAR with Hx of Myocardial infarction Other abnormal clinical finding Verebral Compression Fractures Glossitis CAD (coronary artery disease) CHF (congestive heart failure) ([facility]) Arthritis Old MA (myocardial infarction) Carotid stenosis H/O ventricular septal defect repair DVT (deep vein thrombosis) in ([facility]) Chronic kidney disease, stage III (moderate) Vitamin D deficiency Osteoporosis OSTEOARTHRITIS, ANKLE, LEFT 01/21/2010 Squamous carcinoma 12/05/2012 Left ankle pain 07/30/2014 Past Surgical History Procedure Laterality Date Coronary artery bypass graft 1996 Grafting for Coronary Artery Bypass x 3 vessels and VSD Patch Cholecystectomy 1986 Previous inferior vena cava filter Cataract removal 2006 OU Hiatal hernia repair 1984 Orif left ankle unstable trimalleolar fracture dislocation 03/24/2009 Breast biopsy Left 1974 CURRENT MEDICATIONS Previous Medications ALLOPURINOL (ZYLOPRIM) 100 MG TABLET TAKE ONE TABLET BY MOUTH TWICE A DAY AMLODIPINE (NORVASC) 5 MG TABLET TAKE ONE TABLET BY MOUTH EVERY DAY ASPIRIN (ASPIRIN EC) 81 MG EC TABLET Take 1 tablet by mouth Daily. ATORVASTATIN (LIPITOR) 40 MG TABLET Take 1 tablet by mouth nightly. [id number] D (CALCIUM 500 PO) Take 1 capsule by mouth Daily. COLCHICINE 0.6 MG TABLET 1-2 tablets by mouth as needed FOLIC ACID 1 MG TABLET Take 1 tablet by mouth Daily. FUROSEMIDE (LASIX) 40 MG TABLET TAKE ONE TABLET BY MOUTH EVERY DAY HYDROCODONE-ACETAMINOPHEN (NORCO) 5-325 MG PER TABLET Take 1 tablet by mouth as needed. INSULIN ASPART (NOVOLOG) 100 UNITS/ML INJECTION 37 units under the skin TID prior to me als INSULIN GLARGINE (LANTUS) 100 UNITS/ML INJECTION (VIAL) 60 units every morning and 60 u nits every evening LISINOPRIL (PRINIVIL, ZESTRIL) 20 MG TABLET TAKE ONE TABLET BY MOUTH EVERY DAY METHOTREXATE 2.5 MG TABLET TAKE 5 TABLETS BY MOUTH ONCE WEEKLY METOPROLOL SUCCINATE (TOPROL-XL) 200 MG ER TABLET TAKE ONE TABLET BY MOUTH EVERY DAY MULTIVITAMIN (THERAGRAN) PER TABLET Take 1 by mouth daily SITAGLIPTIN (JANUVIA) 100 MG TABLET TAKE ONE TABLET BY MOUTH EVERY DAY ALLERGIES Allergies Allergen Reactions Codeine Sulfate Nausea And Vomiting Darvon Nausea Only Estrogens Patient can't remember Pneumococcal Vaccines Other (See Comments) Thinks it was a Prevnar, arm became red/sore/swollen FAMILY AND SOCIAL HISTORY Family History Problem Relation Age of Onset Heart attack Mother possible VSD Heart disease Mother Other (see comment) Other family history of Lavaca's Disease Heart disease Sister Kidney disease Neg Hx Social History Social History Marital Status: Spouse Name: Sigrid Number of Children: 2 Years of Education: N/A Occupational History Social History Main Topics Smoking status: Never Smoker Smokeless tobacco: Never Used Alcohol Use: No Drug Use: No Sexual Activity: Not Asked Other Topics Concern None Social History Narrative Born in [facility] for [facility] years. and Remarried 2 sons local. Patient has never smoked. Alcohol Use - no Exercise: None Caffeine: Decaf only Living Situation: Lives with Sigrid REVIEW OF SYSTEMS As in history of present illness. A 10 system review was otherwise negative. PHYSICAL EXAM VITAL SIGNS: (first vital signs):Temp: 36.4 C (97.6 F) Pulse: 70 Resp: 16 SpO2: (!) 86 % BP: (!) 216/84 mmHg Body mass index is 24.87 kg/(m^2). Constitutional: Moderately uncomfortable female patient. HEENT: Atraumatic, PERRL, Oropharynx benign. Neck: Supple with full range of motion. No JVD and No Cervical Spine Tenderness to palpati on or step-off noted. Respiratory: Good air movement bilaterally. No wheezes, No, rales. Cardiovascular: Normal S1 S2 Abdomen: Soft, nontender. and No rebound, guarding, or masses. Back: Within normal limits and No midline thoracic or lumbar spinal tenderness Extremities: Tenderness in the left hip with shortening and rotation of the leg. No tender ness distal to the hip. Other extremities are nontender and atraumatic. Present distal pul ses. Skin: Warm, Dry, No rashes Neurologic: Alert & oriented. No focal deficits., Speech normal, gait not tested Psychiatric: Normal mood, affect and judgement. EKG 12-lead EKG shows sinus rhythm with a ventricular rate of 71 and first-degree AV block. She does have a right bundle branch block and inferior Q waves. I do not see any evidence of acute ischemic change LABS Results for orders placed or performed during the hospital encounter of 07/10/16 CBC with Differential Result Value Ref Range WBC 15.9 (H) 4.0-11.0 K/uL RBC 4.42 3.70-5.20 M/uL Hgb 14.7 11.5-16.0 g/dL Hct 43.5 34.0-47.0 % MCV 98.2 83.0-101.0 fL MCH 33.1 28.0-35.0 pg MCHC 33.7 32.0-36.0 g/dL RDW-CV 13.8 <15.0 % Platelet Count 217 140-440 K/uL MPV 9.3 fL % Neutrophils 60.8 45.0-82.0 % % Lymphocytes 25.9 20.0-45.0 % % Monocytes 6.9 4.0-12.0 % % Eosinophils 5.6 (H) 0.0-5.0 % % Basophils 0.8 0.0-1.0 % Absolute Neutrophils 9.70 (H) 1.80-8.50 K/uL Absolute Lymphocytes 4.10 (H) 0.60-3.20 K/uL Absolute Monocytes 1.10 (H) 0.00-1.00 K/uL Absolute Eosinophils 0.90 (H) 0.00-0.40 K/uL Absolute Basophils 0.10 0.00-0.10 K/uL Basic Metabolic Panel Result Value Ref Range NA 140 136-149 mmol/L K 3.9 3.5-5.1 mmol/L CL 103 98-109 mmol/L CO2 27 24-31 mmol/L ANION GAP 10 3-16 mmol/L GLUCOSE 195 (H) 70-109 mg/dL BUN 17 7-18 mg/dL Creatinine, Serum/Plasma 1.06 0.60-1.30 mg/dL eGFR if not 49 (L) >=60 mL/min/1.73m2 CALCIUM 9.2 8.3-10.5 mg/dL BUN/CREA 16.0 Protime INR Result Value Ref Range PROTIME 12.9 11.3-13.9 seconds INR 0.95 0.90-1.10 Extra Green Top Tube Result Value Ref Range Extra Green Top Tube Done Extra Gold Top Tube Result Value Ref Range EGDT Done ECG 12 lead Result Value Ref Range INTERPRETATION TEXT Not Confirmed Extra Blood Bank Tube Result Value Ref Range Hold BB Hold Specimen IMAGING STUIDES (X-Rays interpreted by ED Physician) X-ray of the left hip shows an intertrochanteric fracture Chest x-ray shows no cardiomegaly, infiltrates, or effusions. ED COURSE & MEDICAL DECISION MAKING Pertinent Labs & Imaging studies were reviewed along with EMS notes and penitentiary record s if applicable. (See chart for details) Medications and Allergy list reviewed. Nurses note and old records were reviewed The patient was seen and examined, x-ray was immediately obtained demonstrating a left intr atrochanteric hip fracture. Additional laboratory studies were added on. Patient's blood p ressure was quite elevated and I elected to try treating her pain to see if that would gradu ally resolve it but did not improve significantly and so she was treated with some additiona l medications in conjunction with the hospitalist orders to manage her hypertension. I discussed the case with Dr. Soriano from orthopedics who came to evaluate the patient and is planning on operative repair. Dr. Davis from the hospitalist service was involved as well in this patient's admission. Last Set of Vital Signs: Temp: 36.4 C (97.6 F) Pulse: 63 Resp: 16 SpO2: 99 % BP: (!) 20 2/62 mmHg FINAL IMPRESSION ICD-10-CM ICD-9-CM 1. Intertrochanteric fracture of left hip, closed, initial encounter ([facility]) S72.142A 820.21 2. Fall at home, initial encounter W19.XXXA E888.9 Y92.099 E849.0 3. Essential hypertension I10 401.9 Administrations This Visit HYDROmorphone (DILAUDID) 1 mg/mL injection 0.5 mg Admin Date Action Dose Route Administered By 07/10/2016 Given 0.5 mg Intravenous Erich Jiang RN metoclopramide (REGLAN) 5 mg/mL injection 5 mg Admin Date Action Dose Route Administered By 07/10/2016 Given 5 mg Intravenous Erich Jiang RN Portions of this chart were created with [employer] voice recognition software. Inadvertent so und alike substitutions may be present and are unintentional Vernon Wayne MD 07/10/16 1119 Vernon Wayne MD 07/10/16 1133 do cumented in this encounter Miscellaneous Notes Plan of Care - Brea Gonzalez RN - 07/13/2016 4:45 PM PDTProblem: Patient Care Ove rview (Adult) Goal: Care Team Goals & Evaluation PROBLEM-RELATED GOALS: 1. Pt will tolerated a regular diet by 07/12/16. 2. Pt will report pain level of 1/10 by 07/12/16. 3. Pt will have no s/s of infection by 07/12/16. 4. Pt will mobilize at Min A level by 07/16/16 5. Prevent post operative hypoxia 6. Prevent post operative atelectasis STRATEGY TO ACHIEVE GOALS: - Advance diet as tolerated, monitor for s/s of n/v. - Assess pain level though out the day and medicate Pt with PRN pain medications. - Monitor for s/s of infection and notify MD promptly. - Active participation in all PT interventions - Out of bed for all meals 5. Titrate oxygen to room air keeping oxygen saturation at or >92% by 07/15/16 6. Patient to achieve 75% of predicted normal for inspirometer and or using on own by RESTRAINT-RELATED GOALS: STRATEGIES TO ACHIEVE RESTRAINT GOALS: Outcome: Adequate for Discharge Date Met: 07/13/16 Goal Evaluation: Called Jamie/DEISY Giang to give report.... lan of Care - Carisa Tubbs - 07/13/2016 2:10 PM PDTTalked with Sigrid and his step son deborah afternoo n regarding discharging Alyson this afternoon. Answered all their questions and concerns. Faxed PASRR and RX to [facility]ene[facility] Giang. Received the communication result report; result ok. Pushed Discharge information to [facility] through [employer]. SNF packet complete. wet room supervisor time: 1600. Staff and family notified. Electronically signed by: Carisa Tubbs 07/13/2016 14:15 NF Transfer - Jackie Eddy MD - 07/13/2016 12:04 PM PDTFormatting of this note might be different from the [facility] FACILITY TRANSFER ORDERS Patient Name: Alyson Garcia Patient : 1930 Gender: female Date of Admission: 07/10/2016 Date of Discharge: 07/13/2016 Admitting Provider: He Davis MD Discharging Provider: Josiah Eddy MD Consultants: Ru Soriano MD PCP: [facility] transferring to: [facility] Provider after transfer: Vernon Yoder MD CODE STATUS: [x] Attempt CPR [] Do not resuscitate If patient is pulseless and not breathing, RN/STARTING GATE DRIVER may pronounce . Advanced Directives included: [] POLST [] MOLST/MOST [] [facility] ([place]) [] Other: Code status discussed with: [x] Patient [] Spouse/Family [] DPOA [] Other: Name of person discussed with: Date discussed: Isolation/Infection Precautions: [] None Height: Height: 167.6 cm (5' 6") Wt Readings from Last 3 Encounters: 07/13/16 72.4 kg (159 lb 9.8 oz) 06/03/16 69.854 kg (154 lb) 05/31/16 70.625 kg (155 lb 11.2 oz) Admitting Diagnosis: Essential hypertension Fall at home, initial encounter Intertrochanteric fracture of left hip, closed, initial encounter ([facility]) Patient Active Problem List Diagnosis CAROTID STENOSIS AMAUROSIS FUGAX DEMYELINATING DISEASE, CENTRAL NERVOUS SYSTEM FRACTURE, ANKLE, LEFT Gout, unspecified OSTEOARTHRITIS, ANKLE, LEFT FATIGUE VIRAL URI HYPERTRIGLYCERIDEMIA VITAMIN D DEFICIENCY Hypertension, renal disease DM type 2, uncontrolled, with renal complications Glossitis 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 Hyperlipidemia, mixed AMI - ANTEROSEPTAL 1994 CONGESTIVE HEART FAILURE VSD - 1994 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 THROMBOPHLEBITIS CHRONIC KIDNEY DISEASE STAGE III (MODERATE) ARTHRITIS, CHRONIC DM (diabetes mellitus) 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 carcinoma Left ankle pain Transient alteration of awareness Head contusion, initial encounter Cerebral contusion without loss of consciousness, unspecified laterality, sequela Bilateral carotid artery stenosis Cystitis Unsteady Posture imbalance Impaired functional mobility, balance, gait, and endurance SOB (shortness of breath) Diabetic neuropathy Gingival bleeding Essential hypertension with goal blood pressure less than 130/80 Skin cancer Atrial fibrillation Allergies Allergen Reactions Codeine Sulfate Nausea And Vomiting Darvon Nausea Only Estrogens Patient can't remember Pneumococcal Vaccines Other (See Comments) Thinks it was a Prevnar, arm became red/sore/swollen Most Recent Immunizations Administered Date(s) Administered INFLUENZA 65 Y OR >, TRIVALENT HIGH-DOSE 12/18/2015 INFLUENZA QUADR W/PRES (PED/ADOL/ADULT) MULTIDOSE 12/25/2014 PNEUMOCOCCAL CONJUGATE 13-VALENT (PCV13) 12/25/2014 PNEUMOCOCCAL POLYSACCHARIDE 23-VALENT (PPSV23) 11/13/2001 TDAP, (ADOL/ADULT) 11/18/2005 ZOSTER, 1 DOSE (ADULT) 11/18/2005 Diet: [] As tolerated CORD TIRE BUILDER may upgrade or downgrade diet as condition Indicates. [] RN may downgrade diet as indicated. Type: [] Continue current diet of: Diet and Supplements Diet Diet general; consistent carbohydrate; fat and cholesterol modified; sodium restricted 2 g m; Effective Now Number of Occurrences: Until Specified Order Questions: Type Diet general Carbohydrate restrictions consistent carbohydrate Fat or cholesterol modifications fat and cholesterol modified Sodium restictions sodium restricted 2 gm Activity/Therapies: [x] Weight Bearing Restricted (specify limb(s)): non weight bearing/Touch weight bear unt il advanced by Dr Soriano [x] PT Evaluation & Management for: [x] OT Evaluation & Management for: [] CORD TIRE BUILDER Evaluation &Management for: [] Other: Wound/Skin Care: [x] Follow current recommendations or Dr Chelsey MD Blood sugar assessment: QID glucoscans with coverage based of sliding scale Follow up appointments and consultations: Date/Time: Dr. Date/Time I have advised this patient that he/she not use tobacco products. TB screening: Upon admission the 1st and 2nd step TST will be done as per protocol if Resid ent has no history of TB or a past positive TST. Pharmacist may substitute equivalent Rx based on facility or insurance formulary as needed unless otherwise specified by physician. Please write "JOSH" (Dispense as written) if a medi cation should not be substituted. Please make sure to write a diagnosis for ALL medications continued on transfer. Antibioti cs require a stop date. If medications do not contain a SIG, make sure doses/routes and vladimir edule is included. Medication Orders New Medications Details Order Next Dose Due acetaminophen 325 mg tablet Take 2 tablets by mouth every 6 hours as needed for Pain. aka: TYLENOL By: Josiah Eddy Quant: 120 tablet bisacodyl [address] 1 suppository rectally Daily as needed for Constipation. aka: DULCOLAX By: Josiah Eddy docusate sodium 250 MG capsule Take 1 capsule by mouth 2 times daily. aka: COLACE By: Josiah Eddy HYDROcodone-acetaminophen 5-325 mg per tablet Take 1 tablet by mouth every 4 hours as needed for Pain. aka: NORCO By: Josiah Eddy Quant: 30 tablet insulin lispro 100 units/mL injection (pen) Inject 0-12 Units under the skin 4 times daily (with meals and nightly). aka: humaLOG KWIKPEN By: Josiah Eddy Quant: 10 mL lactulose 10 g/15 mL solution Take 30 mLs by mouth every hour as needed (up to 3 doses in 24 hours). By: Josiah Eddy Quant: 320 mL polyethylene glycol packet Take 1 diluted packet by mouth Daily as needed. aka: MIRALAX By: Josiah Eddy rivaroxaban 10 mg tablet Take 1 tablet by mouth Daily. aka: XARELTO By: Josiah Eddy Quant: 40 tablet Changed Medications Details Order Next Dose Due allopurinol 100 mg tablet TAKE ONE TABLET BY MOUTH TWICE A DAY What changed: What Changed: Instructions aka: ZYLOPRIM By: Vernon Yoder Quant: 180 tablet LANTUS 100 units/mL injection (vial) Generic drug: insulin glargine 10 units every morning and 10 units every evening What changed: additional instructions By: Josiah Eddy Dx: 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, wit h long-term current use of insulin Quant: 50 mL methotrexate 2.5 mg tablet Take 5 tablets by mouth Once a week. Indications: Rheumatoid Arthritis What changed: What Changed: Instructions Start: 08/09/2016 By: Josiah Eddy Quant: 20 tablet Unchanged Medications Details Order Next Dose Due aspirin EC 81 MG EC tablet Generic drug: aspirin Take 1 tablet by mouth Daily. By: Stephenie Paul atorvaSTATin 40 mg tablet Take 1 tablet by mouth nightly. aka: LIPITOR By: Vernon Yoder Dx: Dyslipidemia Quant: 90 tablet CALCIUM 500 PO Take 1 capsule by mouth Daily. colchicine 0.6 mg tablet 1-2 tablets by mouth as needed By: DATA MIGRATION BAKARI SR folic acid 1 mg tablet Take 1 tablet by mouth Daily. By: Vernon Yoder Quant: 90 tablet lisinopril 20 mg tablet TAKE ONE TABLET BY MOUTH EVERY DAY aka: PRINIVIL, ZESTRIL By: Kemar Wilson Fackenthall Quant: 30 tablet metoprolol succinate 200 mg ER tablet TAKE ONE TABLET BY MOUTH EVERY DAY aka: TOPROL-XL By: Vernon Yoder Quant: 90 tablet multivitamin tablet Take 1 by mouth daily By: DATA MIGRATION BAKARI SR Discontinued Medications amLODIPine 5 mg tablet aka: NORVASC furosemide 40 mg tablet aka: LASIX insulin aspart 100 units/mL injection aka: NOVOLOG SITagliptin 100 mg tablet aka: SHAHID Sanchez, Josiah Eddy MD, certify that post hospital pen[facility]iary care is medically necessa ry on a continuing basis for any of the conditions for which he/she received care during thi s hospitalization. Check one: [x] Skilled [] Intermediate Additional Orders/Instructions: Physician's signature: 07/13/2016 12:[address] [facility] USE ONLY: [] Admitting orders verbally reviewed with Admitting Physician, modified where appropriate, and approved. Verbal Order from Date: Time: _ RN name: RN signature: [] Admitting orders reviewed, modified where appropriate, and approved. Physician's signature: Date: Time: lan of Care - Analisa Santoro OT - 07/13/2016 12:02 PM PDTFormatting of this note might be different from the o riginal. Problem: Patient Care Overview (Adult) Goal: Care Team Goals & Evaluation PROBLEM-RELATED GOALS: 1. Pt will tolerated a regular diet by 07/12/16. 2. Pt will report pain level of 1/10 by 07/12/16. 3. Pt will have no s/s of infection by 07/12/16. 4. Pt will mobilize at Min A level by 07/16/16 5. Prevent post operative hypoxia 6. Prevent post operative atelectasis STRATEGY TO ACHIEVE GOALS: - Advance diet as tolerated, monitor for s/s of n/v. - Assess pain level though out the day and medicate Pt with PRN pain medications. - Monitor for s/s of infection and notify MD promptly. - Active participation in all PT interventions - Out of bed for all meals 5. Titrate oxygen to room air keeping oxygen saturation at or >92% by 07/15/16 6. Patient to achieve 75% of predicted normal for inspirometer and or using on own by RESTRAINT-RELATED GOALS: STRATEGIES TO ACHIEVE RESTRAINT GOALS: Outcome: Improving Occupational Therapy Plan of Care Treatment Note Summary: Pt seen for OT treatment session to address fxl mobility and ADLs following L hip surgery w/ TDWB precautions. Pt seen today w/ at bedside. Pt's cognitive deficets l imit her ability to follow commands. Pt self limits d/t pain and required max A x2, increase d time, and use of hospital bed to reach modified seated EOB position. Pt's deficets impact her ability to complete ADLs at PLOF. Pt will dc to SNF however will benefit from additional OT sessions while at hospital to address deficets. Occupational Therapy Discharge Recommendations are: Recommended discharge disposition: penitentiary facility Post discharge occupational therapy recommendation: ongoing low intensity therapy, will be nefit from structured setting, family involved/supportive Equipment Recommendations: none Planned Interventions:ADL retraining, transfer training, bed mobility training Recommended Frequency: 4 times/wk Patient Status/Goals: Reflects last filed data and may be from multiple contributors. ADLs Pt required max A to reach modified seated EOB position. Once EOB, pt required set up jeornimo t to groom in supported seat EOB. Bathing, Level of Blount: verbal cues required, maximal assist (25% patient effort), supervised, stand by assist Assistive Device: none Bathing Assess/Train, Position: supported sitting Bathing Assess/Train, Impairments: pain, strength decreased (Cognitive deficits) Groomed sitting up in chair, LLE propped on pillows. Requires redirection throughout. Hus band assisted in applying toothpaste on toothbrush. Grooming, Level of Blount: minimal assist (75% patient effort), verbal cues required Bed Mobility Pt w/ increased pain during bed mobility and extreme difficulty mobilizing to EOB. Pt requi red max A x 2 and HOB raised to reach modified seated position EOB. Assistive Device: bed rails Supine to Sit, Level of Blount: 2 person assist required, dependent ( less than 25% p atient effort) Safety Issues: cognitive deficits limit understanding, unable to safely maintain weight judith ring restrictions Impairments: motor control impaired, impaired balance, strength decreased, pain, coordinati on impaired Transfers Max A and HOB raised to reach modified seated EOB position. Maintain Weight Bearing Status: unable to maintain weight bearing status Safety Issues: balance decreased during turns, sequencing ability decreased Impairments: motor control impaired, coordination impaired, impaired balance, strength decr eased, pain ROM L UE ROM: WFL R UE ROM: WFL Strength L UE Strength: WFL R UE Strength: WFL OT Goal Review Date Most Recent Value STG Review Date 07/14/16 at 07/11/2016 1504 LB Dressing Goal Most Recent Value STG Status not addressed at 07/13/2016 1150 STG Blount Level minimum assist (75% patient effort) at 07/13/2016 1150 STG Adaptive Equipment none at 07/13/2016 1150 Toilet Transfer Goal Most Recent Value STG Status not addressed at 07/13/2016 1150 STG Bl[place] Level contact guard assist at 07/13/2016 1150 STG Assistive Device 2 wheeled walker (FWW) at 07/13/2016 1150 Tub/Shower Transfer Goal Most Recent Value Tub/Shower Type walk in shower stall at 07/13/2016 1150 STG Status not addressed at 07/13/2016 1150 STG Blount Level contact guard assist at 07/13/2016 1150 STG Assistive Device 2 wheeled walker (FWW), shower chair at 07/13/2016 1150 Electronically signed by: Analisa Santoro OT, 07/13/2016 12:01 lan of Care - Mouna Thomas RN - 07/13/2016 4:31 AM PDTProblem: Patient Care Overview (Adult) Goal: Care Team Goals & Evaluation PROBLEM-RELATED GOALS: 1. Pt will tolerated a regular diet by 07/12/16. 2. Pt will report pain level of 1/10 by 07/12/16. 3. Pt will have no s/s of infection by 07/12/16. 4. Pt will mobilize at Min A level by 07/16/16 5. Prevent post operative hypoxia 6. Prevent post operative atelectasis STRATEGY TO ACHIEVE GOALS: - Advance diet as tolerated, monitor for s/s of n/v. - Assess pain level though out the day and medicate Pt with PRN pain medications. - Monitor for s/s of infection and notify MD promptly. - Active participation in all PT interventions - Out of bed for all meals 5. Titrate oxygen to room air keeping oxygen saturation at or >92% by 07/15/16 6. Patient to achieve 75% of predicted normal for inspirometer and or using on own by RESTRAINT-RELATED GOALS: STRATEGIES TO ACHIEVE RESTRAINT GOALS: Outcome: Improving Goal Evaluation: pt slept well. Uses call light appropriately. Confused to date and time, but orients easil y. Left hip pain, pt tolerates 1 [place]. CMS intact. Pt is heavy transfer, requires roberta Duggan in place. anticipate [facility] today. Pt unsure of last BM, meds administered. lan of Care - Brea Woods RN - 07/12/2016 8:29 PM PDTProblem: Patient Care Overview (Adult) Goal: Care Team Goals & Evaluation PROBLEM-RELATED GOALS: 1. Pt will tolerated a regular diet by 07/12/16. 2. Pt will report pain level of 1/10 by 07/12/16. 3. Pt will have no s/s of infection by 07/12/16. 4. Pt will mobilize at Min A level by 07/16/16 5. Prevent post operative hypoxia 6. Prevent post operative atelectasis STRATEGY TO ACHIEVE GOALS: - Advance diet as tolerated, monitor for s/s of n/v. - Assess pain level though out the day and medicate Pt with PRN pain medications. - Monitor for s/s of infection and notify MD promptly. - Active participation in all PT interventions - Out of bed for all meals 5. Titrate oxygen to room air keeping oxygen saturation at or >92% by 07/15/16 6. Patient to achieve 75% of predicted normal for inspirometer and or using on own by RESTRAINT-RELATED GOALS: STRATEGIES TO ACHIEVE RESTRAINT GOALS: Outcome: Improving Goal Evaluation: pt alert to self and family, cooperative, increase in pain with any movement, oxycodone ma de pt sleepy, use [place] and straight tylenol - pt tolerated well, heels floated, drsg to lef t hip old dry drainage, PPP, cap<3, CSM-intact, MAX asst w/ skylift to chair, duggan intact, BT hypo meds given, fluid encouraged, HRI Tele A-fib, LS-C dim RA., pt has dry scabs to fore head that stated she had prior to hospitalization, they had med a appt with her PCP. lan of Care - Sujey Valentin, PT - 07/12/2016 2:15 PM PDTFormatting of this note might be different fr om the original. Problem: Patient Care Overview (Adult) Goal: Care Team Goals & Evaluation PROBLEM-RELATED GOALS: 1. Pt will tolerated a regular diet by 07/12/16. 2. Pt will report pain level of 1/10 by 07/12/16. 3. Pt will have no s/s of infection by 07/12/16. 4. Pt will mobilize at Min A level by 07/16/16 5. Prevent post operative hypoxia 6. Prevent post operative atelectasis STRATEGY TO ACHIEVE GOALS: - Advance diet as tolerated, monitor for s/s of n/v. - Assess pain level though out the day and medicate Pt with PRN pain medications. - Monitor for s/s of infection and notify MD promptly. - Active participation in all PT interventions - Out of bed for all meals 5. Titrate oxygen to room air keeping oxygen saturation at or >92% by 07/15/16 6. Patient to achieve 75% of predicted normal for inspirometer and or using on own by RESTRAINT-RELATED GOALS: STRATEGIES TO ACHIEVE RESTRAINT GOALS: Outcome: Adequate for Discharge Date Met: 07/12/16 Physical Therapy Plan of Care Treatment Note Summary: Pt w/ poor tolerance of PT session today d/t increased pain. She required increas ed level of assistance w/ all functional mobility and was having increased difficulty follow ing instructions. She also was unable to maintain her TDWB restriction thru her LLE w/o assi stance. Refer below for details of functional levels. Pt will benefit from continued PT inte rventions to promote increased independence w/ functional activities necessary for safe home discharge. She will need placement for ongoing therapy services to maximize functional pote ntial however it is likely she will have to mobilize at a w/c level until her TDWB restricti ons are lifted as she is unable to maintain wt bearing limit at this time. Physical Therapy Discharge Recommendations are: Recommended discharge disposition: penitentiary facility Post discharge physical therapy recommendation: will benefit from structured setting, ongo ing low intensity therapy Equipment Recommendations: (TBD) Planned Interventions: balance training, bed mobility training, gait training, home exerci se program, manual therapy techniques, patient/family education, strengthening, transfer tra ining Recommended Frequency: (1-2x/day) Patient Status/Goals: Reflects last filed data and may be from multiple contributors. Gait Attempted pivot to chair however pt unable to manage stepping at this time d/t height of FW W and difficulty holding self up thru BUE's Stairs Pt will likely require a ramp to access her home upon discharge Transfers Significant assistance w/ ascent d/t pain and difficulty maintaining wt bearing. Bed-Chair, Level of Blount: moderate assist (50% patient effort), 2 person assist req uired Chair-Bed, Level of Blount: (NT as pt was left seated in recliner) [id number], Assistive Device: 2 wheeled walker (FWW) Sit-Stand, Level of Blount: moderate assist (50% patient effort), 2 person assist req uired, verbal cues required Stand-Sit, Level of Blount: 2 person assist required, minimal assist (75% patient eff ort), verbal cues required [id number]-Fbl, Assistive Device: 2 wheeled walker (FWW) Maintain Weight Bearing Status: assist to maintain weight bearing status Safety Issues: balance decreased during turns, sequencing ability decreased Impairments: motor control impaired, coordination impaired, impaired balance, strength decr eased, pain Bed Mobility Pt w/ increased pain and increased difficulty mobilizing in bed Assistive Device: bed rails Supine to Sit, Level of Blount: maximal assist (25% patient effort), 2 person assist required Sit to Supine, Level of Blount: (NT as pt was left seated in recliner) Safety Issues: cognitive deficits limit understanding Impairments: motor control impaired, impaired balance, strength decreased, pain, coordinati on impaired Balance Sitting Balance: Static: good balance Sitting Balance: Dynamic: fair balance Standing Balance: Static: fair balance Standing Balance: Dynamic: poor balance ROM L LE ROM: AAROM hip 0-45, knee and ankle functional R LE ROM: WNL Strength L LE Strength: 2/5 t/o, inhibited by pain R LE Strength: grossly 4/5 PT Goal Review Date Most Recent Value STG Review Date 07/16/16 at 07/11/2016 1007 [id number] Goal Most Recent Value STG Status continued/progressing at 07/12/2016 1421 STG Blount Level independent at 07/11/2016 1007 STG Assistive Device none at 07/11/2016 1007 [id number]-Xwq Goal Most Recent Value STG Status continued/progressing at 07/12/2016 1421 STG Bl[place] Level contact guard assist at 07/11/2016 1007 STG Assistive Device 2 wheeled walker (FWW) at 07/11/2016 1007 Nmg-Ntzfo-Fvw Goal Most Recent Value STG Status continued/progressing at 07/12/2016 1421 STG Bl[place] Level contact guard assist at 07/11/2016 1007 STG Assistive Device 2 wheeled walker (FWW) at 07/11/2016 1007 Gait Goal Most Recent Value STG Status continued/progressing at 07/12/2016 1421 STG Blount Level contact guard assist at 07/11/2016 1007 STG Assistive Device 2 wheeled walker (FWW) at 07/11/2016 1007 STG Distance (feet) 50 at 07/11/2016 1007 Electronically signed by: Sujey Valentin PT, 07/12/2016 14:25 lan of Carisa Resendiz - 07/12/2016 1:01 PM PDTMet with the spouse and son this morning to answer all t heir questions and concerns about discharging tomorrow. Answered all their questions regardi ng Medicare coverage for the Rehab facility ([facility]) They would like to see Alyson go to [facility]. This CM let them know that she may discharge t omorrow. [facility] her once she is medically stable. Electronically signed by: Carisa Tubbs 07/12/2016 13:17 lan of Christiano Montelongo, CARMELITA - 07/12/2016 10:36 AM PDTProblem: Patient Care Overview (Adult) Goal: Care Team Goals & Evaluation PROBLEM-RELATED GOALS: 1. Pt will tolerated a regular diet by 07/12/16. 2. Pt will report pain level of 1/10 by 07/12/16. 3. Pt will have no s/s of infection by 07/12/16. 4. Pt will mobilize at Min A level by 07/16/16 5. Prevent post operative hypoxia 6. Prevent post operative atelectasis STRATEGY TO ACHIEVE GOALS: - Advance diet as tolerated, monitor for s/s of n/v. - Assess pain level though out the day and medicate Pt with PRN pain medications. - Monitor for s/s of infection and notify MD promptly. - Active participation in all PT interventions - Out of bed for all meals 5. Titrate oxygen to room air keeping oxygen saturation at or >92% by 07/15/16 6. Patient to achieve 75% of predicted normal for inspirometer and or using on own by RESTRAINT-RELATED GOALS: STRATEGIES TO ACHIEVE RESTRAINT GOALS: Goal Evaluation: Patient is achieving 60% of predicted normal for inspirometer with fair technique. Oxygen saturation on 1 1/2 l/m=96%, oxygen off for room air oximetry. Will continue to follow lan of Care - Hoang Jackson RN - 07/12/2016 3:22 AM PDTProblem: Patient Care Overview (Adult) Goal: Care Team Goals & Evaluation PROBLEM-RELATED GOALS: 1. Pt will tolerated a regular diet by 07/12/16. 2. Pt will report pain level of 1/10 by 07/12/16. 3. Pt will have no s/s of infection by 07/12/16. 4. Pt will mobilize at Min A level by 07/16/16 STRATEGY TO ACHIEVE GOALS: - Advance diet as tolerated, monitor for s/s of n/v. - Assess pain level though out the day and medicate Pt with PRN pain medications. - Monitor for s/s of infection and notify MD promptly. - Active participation in all PT interventions - Out of bed for all meals RESTRAINT-RELATED GOALS: STRATEGIES TO ACHIEVE RESTRAINT GOALS: Outcome: Improving Goal Evaluation: Pt continues to be confused. Cooperative with cares at this time. Denies pain. Dressing to left hip is intact, no new drainage noted. No s/s of infection noted. CMS is intact. Denies numbness and tingling. Duggan catheter draining clear yellow urine. Tolerating diet well, de nies nausea at this time. lan of Care - Aliza Carrillo RN - 07/11/2016 6:10 PM PDTProblem: Patient Care Overview (Adult) Goal: Care Team Goals & Evaluation PROBLEM-RELATED GOALS: 1. Pt will tolerated a regular diet by 07/12/16. 2. Pt will report pain level of 1/10 by 07/12/16. 3. Pt will have no s/s of infection by 07/12/16. 4. Pt will mobilize at Min A level by 07/16/16 STRATEGY TO ACHIEVE GOALS: - Advance diet as tolerated, monitor for s/s of n/v. - Assess pain level though out the day and medicate Pt with PRN pain medications. - Monitor for s/s of infection and notify MD promptly. - Active participation in all PT interventions - Out of bed for all meals RESTRAINT-RELATED GOALS: STRATEGIES TO ACHIEVE RESTRAINT GOALS: Outcome: Improving Goal Evaluation: Periods of confusion, escaltes some with family here, up in chair at bedside with therapy, 2 person assist for mobility, denies pain, impulsive, needs bed/chair alarm on. lan of Rena Zaragoza RN - 07/11/2016 12:19 PM PDTProblem: Discharge Planning Goal: Patient will be discharged in a safe manner Outcome: Improving Met with Ms. Garcia to discuss her discharge plans. Ms. Garcia states she lives with her in a one level home with two steps to enter. She states she is independent with her cares and uses a FWW for ambulation. She has a tub and a walk-in shower with a shower chair. Her PCP is Dr. Yoder and she uses [facility]. She states she will need a SNF rehab stay and she only chooses [facility]. Facility preference form signed and placed in ghost chart. SNF referral sent to [facility] via [employer] to continue to follow. Electronically signed by: Rena Aguilar RN 07/11/2016 12:19 Received call from [facility]ew[facility] at [facility], she states they can accept Ms. Garcia when she is medically stable for discharge. Electronically signed by: Rena Aguilar RN 07/11/2016 13:22 lan of Isabelle - Helnea Motta OT - 07/11/2016 12:10 PM PDT Problem: Patient Care Overview (Adult) Goal: Care Team Goals & Evaluation PROBLEM-RELATED GOALS: 1. Pt will tolerated a regular diet by 07/12/16. 2. Pt will report pain level of 1/10 by 07/12/16. 3. Pt will have no s/s of infection by 07/12/16. 4. Pt will mobilize at Min A level by 07/16/16 STRATEGY TO ACHIEVE GOALS: - Advance diet as tolerated, monitor for s/s of n/v. - Assess pain level though out the day and medicate Pt with PRN pain medications. - Monitor for s/s of infection and notify MD promptly. - Active participation in all PT interventions - Out of bed for all meals RESTRAINT-RELATED GOALS: STRATEGIES TO ACHIEVE RESTRAINT GOALS: Occupational Therapy Plan of Care Initial Evaluation, Treatment Note Summary: Pt seen for initial OT eval and tx to address fxl mobility and ADLs following L h ip surgery with TDWB precautions. Pt unable to give extensive history, however was present in room and states that he helps her with most ADLs as well as bathroom transfers. Pt's cognitive deficits appear to limit her understanding and command following abilities. P t needed mod VC to complete ADL tasks as well as frequent redirection. Pt will benefit from cont OT to address these issues and increase indep in ADLs. Pt will certainly need SNF yayo cement at d/c for continued therapies and care. Occupational Therapy Discharge Recommendations are: [facility] Post discharge occupational therapy recommendation: family involved/supportive, ongoing lo w intensity therapy, will benefit from structured setting Equipment Recommendations: none Planned Interventions:ADL retraining, transfer training, bed mobility training Recommended Frequency: 4 times/wk Patient Status/Goals: Reflects last filed data and may be from multiple contributors. ADLs Bed bath seated in chair. Able to assist moderately, but pt required cues to not pull off electrodes on abdomen. Bathing, Level of Blount: moderate assist (50% patient effort), verbal cues required Assistive Device: none Bathing Assess/Train, Position: supported sitting Bathing Assess/Train, Impairments: pain, strength decreased (Cognitive deficits) Groomed sitting up in chair, LLE propped on pillows. Requires redirection throughout. Hus band assisted in applying toothpaste on toothbrush. Grooming, Level of Blount: minimal assist (75% patient effort), verbal cues required Transfers Did not attempt transfers today per pt's pain. Pt comfortable in chair, repositioned in ch air. ROM L UE ROM: WFL R UE ROM: WFL Strength L UE Strength: WFL R UE Strength: WFL OT Goal Review Date Most Recent Value STG Review Date 07/14/16 at 07/11/2016 1504 LB Dressing Goal Most Recent Value STG Status new at 07/11/2016 1504 STG Blount Level minimum assist (75% patient effort) at 07/11/2016 1504 STG Adaptive Equipment none at 07/11/2016 1504 Toilet Transfer Goal Most Recent Value STG Status new at 07/11/2016 1504 STG Blount Level contact guard assist at 07/11/2016 1504 STG Assistive Device 2 wheeled walker (FWW) at 07/11/2016 1504 Tub/Shower Transfer Goal Most Recent Value Tub/Shower Type walk in shower stall at 07/11/2016 1504 STG Status new at 07/11/2016 1504 STG Blount Level contact guard assist at 07/11/2016 1504 STG Assistive Device 2 wheeled walker (FWW), shower chair at 07/11/2016 1504 Electronically signed by: Helena Motta OT, 07/11/2016 15:11 nesthesia Pain Man sohail - Vernon Ring II, MD - 07/11/2016 11:46 AM PDTMult[facility]-Up Pain level: 2 The patient had both itching and nausea/vomiting in the last 24 hours. The patient has no additional complaints at this time. The patient is in no acute distress. Recent vitals Temp: 37.2 C (99 F) Pulse: 78 Resp: 14 BP: 110/56 mmHg SpO2: 93 % (Unable to maintain >90% O2) nasal cannula Min/Max temp Temp Av.9 C (98.4 F) Min: 35.8 C (96.4 F) Max: 37.5 C (99.5 F) @ The patient is able to move all four extremities. Duggan: out. Status post spinal morphine PF The patient is doing well. Continue pain medications per surgeon/primary team. There is no apparent anesthetic complication noted at this time. Pain was under good control for duration of SAB narcotics. lan of Isabelle - Sujey Valentin PT - 07/11/2016 9:10 AM PDTFormatting of this note might be different fro m the original. Problem: Patient Care Overview (Adult) Goal: Care Team Goals & Evaluation PROBLEM-RELATED GOALS: 1. Pt will tolerated a regular diet by 07/12/16. 2. Pt will report pain level of 1/10 by 07/12/16. 3. Pt will have no s/s of infection by 07/12/16. 4. Pt will mobilize at Min A level by 07/16/16 STRATEGY TO ACHIEVE GOALS: - Advance diet as tolerated, monitor for s/s of n/v. - Assess pain level though out the day and medicate Pt with PRN pain medications. - Monitor for s/s of infection and notify MD promptly. - Active participation in all PT interventions - Out of bed for all meals RESTRAINT-RELATED GOALS: STRATEGIES TO ACHIEVE RESTRAINT GOALS: Physical Therapy Plan of Care Initial Evaluation, Treatment Note Summary: PT eval completed following admission yesterday for fall resulting in L intertroc hanteric fx, requiring ORIF. Pt is now TDWB thru the LLE. She presented w/ diminished ROM an d strength thru her LLE as well as what appeared to be generalized deconditioning as she lac ked the abdominal and UE strength to either sit up in bed independently or even scoot at the eob. She was able to maintain her wt bearing limitation as she was observed to be NWB t/o t he tx session however she lacks the UE strength to support body wt thru the FWW and allow fo r gait at this time. She will likely take some time to regain her functional independence as her progress is likely to be delayed by her dementia. She will benefit from ongoing therapy services to promote increased independence and safety w/ activities necessary for home disc harge. Physical Therapy Discharge Recommendations are: Recommended discharge disposition: (TBD) Post discharge physical therapy recommendation: (TBD) Equipment Recommendations: (TBD) Planned Interventions: balance training, bed mobility training, gait training, home exerci se program, manual therapy techniques, patient/family education, strengthening, transfer tra ining Recommended Frequency: (1-2x/day) Patient Status/Goals: Reflects last filed data and may be from multiple contributors. Gait Attempted pivot to chair however pt unable to manage stepping at this time d/t height of FW W and difficulty holding self up thru BUE's Stairs Pt has stairs to enter home however d/t wt bearing limit she will need a ramp to access h er home. Transfers Pt capable of maintaining wt limitation thru LLE however unable to utilize BUE's sufficient ly to allow for maintenance of body weight thru FWW and allow for gait w/ TDWB thru L. Cuing for sequencing and mgmt of TDWB Bed-Chair, Level of Blount: maximal assist (25% patient effort), 2 person assist requ ired, verbal cues required Chair-Bed, Level of Blount: (NT as pt was left seated in recliner) [id number]-Yjx, Assistive Device: 2 wheeled walker (FWW) Sit-Stand, Level of Blount: moderate assist (50% patient effort), 2 person assist req uired, verbal cues required Stand-Sit, Level of Blount: 2 person assist required, minimal assist (75% patient eff ort), verbal cues required Mfs-Hcutz-Ewr, Assistive Device: 2 wheeled walker (FWW) Safety Issues: balance decreased during turns, sequencing ability decreased Impairments: motor control impaired, coordination impaired, impaired balance, strength decr eased, pain Bed Mobility Assist w/ LLE and trunk, cuing for sequencing Assistive Device: bed rails Supine to Sit, Level of Blount: moderate assist (50% patient effort), verbal cues req uired Sit to Supine, Level of Blount: (NT as pt was left seated in recliner) Safety Issues: cognitive deficits limit understanding Impairments: motor control impaired, impaired balance, strength decreased, pain, coordinati on impaired Balance Sitting Balance: Static: good balance Sitting Balance: Dynamic: fair balance Standing Balance: Static: fair balance Standing Balance: Dynamic: poor balance ROM L LE ROM: AAROM hip 0-45, knee and ankle functional R LE ROM: WNL Strength L LE Strength: 2/5 t/o, inhibited by pain R LE Strength: grossly 4/5 PT Goal Review Date Most Recent Value STG Review Date 07/16/16 at 07/11/2016 1007 Eueywf-Emv-Xyazzu Goal Most Recent Value STG Status new at 07/11/2016 1007 STG Blount Level independent at 07/11/2016 1007 STG Assistive Device none at 07/11/2016 1007 Huj-Dvhgc-Rtx Goal Most Recent Value STG Status new at 07/11/2016 1007 STG Blount Level contact guard assist at 07/11/2016 1007 STG Assistive Device 2 wheeled walker (FWW) at 07/11/2016 1007 Inf-Asogt-Fqt Goal Most Recent Value STG Status new at 07/11/2016 1007 STG Blount Level contact guard assist at 07/11/2016 1007 STG Assistive Device 2 wheeled walker (FWW) at 07/11/2016 1007 Gait Goal Most Recent Value STG Status new at 07/11/2016 1007 STG Blount Level contact guard assist at 07/11/2016 1007 STG Assistive Device 2 wheeled walker (FWW) at 07/11/2016 1007 STG Distance (feet) 50 at 07/11/2016 1007 Electronically signed by: Sujey Valentin PT, 07/11/2016 10:20 lan of Care - Hoang Alexandra RN - 07/11/2016 2:36 AM PDTProblem: Patient Care Overview (Adult) Goal: Care Team Goals & Evaluation PROBLEM-RELATED GOALS: 1. Pt will tolerated a regular diet by 07/12/16. 2. Pt will report pain level of 1/10 by 07/12/16. 3. Pt will have no s/s of infection by 07/12/16. STRATEGY TO ACHIEVE GOALS: - Advance diet as tolerated, monitor for s/s of n/v. - Assess pain level though out the day and medicate Pt with PRN pain medications. - Monitor for s/s of infection and notify MD promptly. RESTRAINT-RELATED GOALS: STRATEGIES TO ACHIEVE RESTRAINT GOALS: Outcome: Improving Goal Evaluation: Pt denies pain at this time. No s/s of infection noted. Dressing to left hip has moderate amount of drainage, no new drainage noted this shift. Dressing is intact. CMS is intact, c/o some numbness. Abdomen is distended and soft with hypoactive bowel tones. Pt does not know when last BM was. Bowel meds given and fluids encouraged. Had 1 episode of emesis at beginni ng of shift, offered cold sips of water and wash cloth with good results. lan of Care - Ramakrishna Cross RN - 07/10/2016 8:18 PM PDTProblem: Patient Care Overview (Adult) Goal: Care Team Goals & Evaluation PROBLEM-RELATED GOALS: 1. Pt will tolerated a regular diet by 07/12/16. 2. Pt will report pain level of 1/10 by 07/12/16. 3. Pt will have no s/s of infection by 07/12/16. STRATEGY TO ACHIEVE GOALS: - Advance diet as tolerated, monitor for s/s of n/v. - Assess pain level though out the day and medicate Pt with PRN pain medications. - Monitor for s/s of infection and notify MD promptly. RESTRAINT-RELATED GOALS: STRATEGIES TO ACHIEVE RESTRAINT GOALS: Outcome: Declining Goal Evaluation: Pt is A&O to self, place and situation, denies pain, able to move toes to left foot, denie s numbness. Dressing with small moist drainage noted. Pt c/o intermittent nausea and emesis , PRN Zofran was given. Pt has been taking ice chips sporadically. p Note - Raheem Soriaon MD - 07/10/2016 2:47 PM PDTProv[facility] Pt. Name/Age/: Alyson Garcia 85 y.o. 1930 Med. Record Number: [id number] Date of admission: 07/10/2016 Date of Operation/Procedure: 07/10/2016 Preoperative Diagnosis: 1. Intertrochanteric fracture left hip Postoperative Diagnosis: 1. Same Surgeon: Ru Soriano MD Vinyl Hanger: Jose MOONEY Anesthesia Provider(s): Anesthesiologist: Vernon Ring II, MD Anesthesia Type: Choice PROCEDURE: Repair of Hip fracture with Intramedullary implant OPERATING SURGEON: Ru Soriano MD FINDINGS: Intertrochanteric Fracture COMPONENTS USED: Synthes TTNN nail 12mm 125 degrees, 95mm helical blade After the induction of anesthetic, the patient was placed on the fracture table and while v isualizing with the C-arm. The extremity was positioned with traction to hold the fracture i n a reduced position with the femoral neck at a right angle to the post of the fracture tabl e. The hip was placed in mild adduction. The lateral hip and thigh area were sterilely prepp ed and draped in the usual manner. Under C-arm guidance, a short longitudinal incision was m latonya superior to the greater trochanter and the initial guidepin was placed through the tip o f the greater trochanter into the femoral canal. The soft tissue protector was placed over t he guidewire and the proximal canal was entered using the 17 mm cannulated drill bit. The in tramedullary nail was inserted to the appropriate depth. Using a mallet as necessary and it was aligned parallel with the femoral neck. The appropriate aiming arm was placed and a shor t longitudinal incision was made allowing the blade guide sleeve to be advanced to the later al cortex. The guidewire for the helical blade was inserted through this aiming device while visualizing with the C-arm. Its position was checked and adjusted using the image intensifi er. The appropriate measuring device was used to determine the length of the helical blade. The guidewire was overdrilled with a cannulated drill bit opening the lateral cortex. The he lical blade was impacted into place with a mallet while monitoring its progress with the C-a rm. The helical blade was locked to control rotation of by advancing the locking mechanism t o the stop using the appropriate drill sleeve. The distal locking screw was placed in the ty pical manner using the drill sleeve through the aiming arm. The fracture and fixation were a gain viewed in the AP and lateral views and seemed to be in good position. The wounds were i rrigated with sterile saline and closed using 2-0 Vicryl for the subcutaneous tissue and 4-0 Monocryl subcuticularly for the skin. Sterile dressings were applied. The patient was place d on the hospital bed, awakened, and sent to recovery room in satisfactory condition. Specimens: none EBL 50cc Ru Soriano MD D Triage Notes - Sharon Vences RN - 07/10/2016 8:42 AM PDTPatient brought in by EMS, ground level [facility] l, L hip pain, shortening and rotation noted documented in this encounter Plan of Treatment +--------+---------+ + + + | Date | Type | Specialty | Care Team | Description | +--------+---------+ + + + | 12/06/ | Office | Cardiology | Beverly Rupadanette, | | | 2019 | Visit | | [address] | | | | | | [place], | | | | | | [place] [address] | | | | | | [phone] | | | | | | | | +--------+---------+ + + + documented as of this encounter Procedures + +--------+ + + + | Procedure Name | Priori | Date/Time | Associated Diagnosis | Comments | | | ty | | | | + +--------+ + + + | POC GLUCOSE | Routin | 07/13/2016 | | Results for this | | | e | 12:10 PM | | procedure are in the | | | | PDT | | results section. | + +--------+ + + + | HEMOGLOBIN AND | Routin | 07/13/2016 | | Results for this | | HEMATOCRIT | e | 6:24 AM | | procedure are in the | | | | PDT | | results section. | + +--------+ + + + | BASIC METABOLIC | Routin | 07/13/2016 | | Results for this | | PANEL | e | 6:24 AM | | procedure are in the | | | | PDT | | results section. | + +--------+ + + + | POC GLUCOSE | Routin | 07/12/2016 | | Results for this | | | e | 8:36 PM | | procedure are in the | | | | PDT | | results section. | + +--------+ + + + | POC GLUCOSE | Routin | 07/12/2016 | | Results for this | | | e | 5:13 PM | | procedure are in the | | | | PDT | | results section. | + +--------+ + + + | POC GLUCOSE | Routin | 07/12/2016 | | Results for this | | | e | 11:58 AM | | procedure are in the | | | | PDT | | results section. | + +--------+ + + + | RESPIRATORY THERAPY | Routin | 07/12/2016 | | | | COMMUNICATION | e | 10:30 AM | | | | | | PDT | | | + +--------+ + + + | ECG 12 LEAD | STAT | 07/12/2016 | | Results for this | | | | 9:18 AM | | procedure are in the | | | | PDT | | results section. | + +--------+ + + + | CBC WITH | Routin | 07/12/2016 | | Results for this | | DIFFERENTIAL | e | 6:21 AM | | procedure are in the | | | | PDT | | results section. | + +--------+ + + + | COMPREHENSIVE | Routin | 07/12/2016 | | Results for this | | METABOLIC PANEL | e | 6:21 AM | | procedure are in the | | | | PDT | | results section. | + +--------+ + + + | POC GLUCOSE | Routin | 07/11/2016 | | Results for this | | | e | 8:37 PM | | procedure are in the | | | | PDT | | results section. | + +--------+ + + + | POC GLUCOSE | Routin | 07/11/2016 | | Results for this | | | e | 4:48 PM | | procedure are in the | | | | PDT | | results section. | + +--------+ + + + | POC GLUCOSE | Routin | 07/11/2016 | | Results for this | | | e | 12:14 PM | | procedure are in the | | | | PDT | | results section. | + +--------+ + + + | POC GLUCOSE | Routin | 07/11/2016 | | Results for this | | | e | 9:10 AM | | procedure are in the | | | | PDT | | results section. | + +--------+ + + + | POC GLUCOSE | Routin | 07/11/2016 | | Results for this | | | e | 6:57 AM | | procedure are in the | | | | PDT | | results section. | + +--------+ + + + | CBC NO DIFFERENTIAL | Routin | 07/11/2016 | | Results for this | | | e | 6:21 AM | | procedure are in the | | | | PDT | | results section. | + +--------+ + + + | BASIC METABOLIC | Routin | 07/11/2016 | | Results for this | | PANEL | e | 6:21 AM | | procedure are in the | | | | PDT | | results section. | + +--------+ + + + | POC GLUCOSE | Routin | 07/10/2016 | | Results for this | | | e | 8:27 PM | | procedure are in the | | | | PDT | | results section. | + +--------+ + + + | POC GLUCOSE | Routin | 07/10/2016 | | Results for this | | | e | 5:30 PM | | procedure are in the | | | | PDT | | results section. | + +--------+ + + + | XR HIP LEFT 2-3 | Routin | 07/10/2016 | | Results for this | | VIEWS | e | 2:30 PM | | procedure are in the | | | | PDT | | results section. | + +--------+ + + + | FL MARIELA STATS NO | Routin | 07/10/2016 | | Results for this | | CHARGE | e | 2:29 PM | | procedure are in the | | | | PDT | | results section. | + +--------+ + + + | ORIF IM RODDING | | 07/10/2016 | Left Hip Fracture | | | FEMORAL TROCHANTERIC | | 1:02 PM | | | | NAIL | | PDT | | | + +--------+ + + + | URINALYSIS WITH | STAT | 07/10/2016 | | Results for this | | MICROSCOPIC WITH | | 11:26 AM | | procedure are in the | | CULTURE IF INDICATED | | PDT | | results section. | + +--------+ + + + | EXTRA GREEN TOP TUBE | Routin | 07/10/2016 | | Results for this | | | e | 9:30 AM | | procedure are in the | | | | PDT | | results section. | + +--------+ + + + | EXTRA GOLD TOP TUBE | Routin | 07/10/2016 | | Results for this | | | e | 9:30 AM | | procedure are in the | | | | PDT | | results section. | + +--------+ + + + | PROTIME INR | STAT | 07/10/2016 | | Results for this | | | | 9:30 AM | | procedure are in the | | | | PDT | | results section. | + +--------+ + + + | CBC WITH | STAT | 07/10/2016 | | Results for this | | DIFFERENTIAL | | 9:30 AM | | procedure are in the | | | | PDT | | results section. | + +--------+ + + + | EXTRA BLOOD BANK | Routin | 07/10/2016 | | Results for this | | TUBE | e | 9:30 AM | | procedure are in the | | | | PDT | | results section. | + +--------+ + + + | BASIC METABOLIC | STAT | 07/10/2016 | | Results for this | | PANEL | | 9:30 AM | | procedure are in the | | | | PDT | | results section. | + +--------+ + + + | XR CHEST AP PORTABLE | STAT | 07/10/2016 | | Results for this | | | | 9:25 AM | | procedure are in the | | | | PDT | | results section. | + +--------+ + + + | XR HIP LEFT 2-3 | STAT | 07/10/2016 | | Results for this | | VIEWS | | 9:25 AM | | procedure are in the | | | | PDT | | results section. | + +--------+ + + + | ECG 12 LEAD | STAT | 07/10/2016 | | Results for this | | | | 8:55 AM | | procedure are in the | | | | PDT | | results section. | + +--------+ + + + documented in this encounter Results POC Glucose (07/13/2016 12:10 PM PDT) + +---------+ + + + | Component | Value | Ref Range | Performed | Pathologist | | | | | At | Signature | + +---------+ + + + | Glucose, | 283 (H) | 70 - 150 mg/dL | [facility] | | | POC | | | [facility] | | [...] + | [facility] | [address] | [place] | [phone] | | [facility] | | [address] | | | - LABORATORY | | | | + + + + + Hemoglobin and Hematocrit (07/13/2016 6:24 AM PDT) + +-------+ + + + | Component | Value | Ref Range | Performed | Pathologist | | | | | At | Signature | + +-------+ + + + | Hemoglobin | 12.3 | 11.5 - 16.0 | [facility] | | | | | g/dL | [facility] | | [facility] | [facility] | | | | [facility] - | | | | | | LABORATORY | | + +-------+ + + + | Hematocrit | 35.9 | 34.0 - 47.0 % | [facility] | | | | | | [facility] | | | | [facility] | [facility] | | | | | | [facility] - | | | | | | LABORATORY | | + +-------+ + + + + + | Specimen | + + | Blood | + + + + + + + | Performing | Address | City/State/Zipcode | Phone Number | | Organization | | | | + + + + + | [facility] | [address] | [place] | [phone] | | [facility] | | [address] | | | - LABORATORY | | | | + + + + + Basic Metabolic Panel (07/13/2016 6:24 AM PDT) + + + + + + | Component | Value | Ref Range | Performed | Pathologist | | | | | At | Signature | + + + + + + | Na | 136 | 136 - 149 | [facility] | | | | | mmol/L | [facility] | | | | [...] + + + + | Cl | 102 | 98 - 109 mmol/L | [facility] | | | | | | [facility] | | | | | | [facility] | | | | | | [facility] - | | | | | | LABORATORY | | + + + + + + | CO2 | 26 | 24 - 31 mmol/L | [facility] | | | | | | [facility] | | | | | | [facility] | | | | | | CENTER - | | | | | | LABORATORY | | + + + + + + | Anion Gap | 8 | 3 - 16 mmol/L | [facility] | | | | | [facility] | [facility] | [facility] | | | | | | [facility] - | | | | | | LABORATORY | | + + + + + + | Glucose | 175 (H) | 70 - 109 mg/dL | [facility] | | | | | [facility] | | | | | | [facility] | | | | | | C[facility] - | | | | | | LABORATORY | | + + + + + + | BUN | 28 (H) | 7 - 18 mg/dL | [facility] | | | | | | [facility] | [facility] | [facility] | | | | | | [facility] - | | | | | | LABORATORY | | + + + + + + | Creatinine | 1.10 | 0.60 - 1.30 | [facility] | | | | | mg/dL | [facility] | | | | | | [facility] | | | | | | CENTER - | | | | | | LABORATORY | | + + + + + + | eGFR if not | 47 (L)Comment: | >=60 | [facility] | | | | GLOMERULAR FILTRATION | mL/min/1.73m2 | [facility] | | | GHANA[facility] | RATE,ESTIMATED | | MEDICAL | | | | mL/min/1.13e3Xzpg than | | CENTER - | | [...] + + + + | Calcium | 8.4 | 8.3 - 10.5 | [facility] | | | | | mg/dL | [facility] | | | | | | [facility] | | | | | | CENTER - | | | | | | LABORATORY | | + + + + + + | BUN/Creatin | 25.5 | | [facility] | | | ine Ratio | | | [facility] | | | | | | MEDICAL [...] + + + + + | [facility] | [address] | [place] | [phone] | | [facility] | | [address] | | | - LABORATORY | | | | + + + + + POC Glucose (07/12/2016 8:36 PM PDT) + +---------+ + + + | Component | Value | Ref Range | Performed | Pathologist | | | | | At | Signature | + +---------+ + + + | Glucose, | 175 (H) | 70 - 150 mg/dL | [facility] | | | POC | | | [facility] | | [...] + | [facility] | [address] | [place] | [phone] | | [facility] | | [address] | | | - LABORATORY | | | | + + + + + POC Glucose (07/12/2016 5:13 PM PDT) + +-------+ + + + | Component | Value | Ref Range | Performed | Pathologist | | | | | At | Signature | + +-------+ + + + | Glucose, | 123 | 70 - 150 mg/dL | [facility] | | | POC | | | [facility] | | | [facility] | [facility] | | | | | | CENTER - | | | | | | LABORATORY | | + +-------+ + + + + + | Specimen | + + | Blood | + + + + + + + | Performing | Address | City/State/Zipcode | Phone Number | | Organization | | | | + + + + + | [facility] | [address] | [place] | [phone] | | [facility] | | [address] | | | - LABORATORY | | | | + + + + + POC Glucose (07/12/2016 11:58 AM PDT) + +-------+ + + + | Component | Value | Ref Range | Performed | Pathologist | | | | | At | Signature | + +-------+ + + + | Glucose, | 128 | 70 - 150 mg/dL | [facility] | | | POC | | | [facility] | | | | | | [facility] | | | | | | CENTER - | | | | | | LABORATORY | | + +-------+ + + + + + | Specimen | + + | Blood | + + + + + + + | Performing | Address | City/State/Zipcode | Phone Number | | Organization | | | | + + + + + | [facility] | [address] | [place], [place] | [phone] | | [facility] | | [address] | | | - LABORATORY | | | | + + + + + ECG 12 lead (07/12/2016 9:18 AM PDT) + + + + + + | Component | Value | Ref Range | Performed | Pathologist | | | | | At | Signature | + + + + + + | VENTRICULAR | 84 | BPM | [facility] | | | RATE EKG | | | | | + + + + + + | QRS | 128 | ms | [facility] | | | DURATION | | | | | + + + + + + | Q-T | 410 | ms | [facility] | | | INTERVAL | | | | | + + + + + + | Q-T | 484 | ms | [facility] | | | INTERVAL | | | | | | (CORRECTED) | | | | | + + + + + + | QRS AXIS | -46 | degrees | [facility] | | + + + + + + | T AXIS | -150 | degrees | [facility] | | + + + + + + | INTERPRETAT | Atrial fibrillationLeft | | [facility] | | | ION TEXT | axis deviation with left | | | | | | anterior hemiblockRight | | | | | | bundle branch | | | | | | blockInferior infarct | | | | | | (cited on or before | | | | | | 21-MAR-2015)Anterior | | | | | | infarct , age | | | | | | undeterminedT wave | | | | | | abnormality, consider | | | | | | lateral ischemiaAbnormal | | | | | | ECGWhen compared with | | | | | | ECG of 10-JUL-2016 | | | | | | 08:55,Atrial | | | | | | fibrillation has | | | | | | replaced Sinus | | | | | | rhythmAnterior infarct | | | | | | is now | | | | | | presentNonspecific T | | | | | | wave abnormality, worse | | | | | | in Inferior | | | | | | leadsConfirmed by | | | | | | LUCINA ALAMO, ROSALBA ([id number]) | | | | | | on 07/13/2016 7:24:19 AM | | | | + + + + + + + + | Specimen | + + | | + + + + + | Narrative | Performed At | + + + | | | + + + + +---------+ + + | Performing | Address | City/State/Zipcode | Phone Number | | Organization | | | | + +---------+ + + | [facility] | | | | + +---------+ + + Comprehensive Metabolic Panel (07/12/2016 6:21 AM PDT) + + + + + + | Component | Value | Ref Range | Performed | Pathologist | | | | | At | Signature | + + + + + + | Na | 137 | 136 - 149 | [facility] | | | | | mmol/L | [facility] | | | [facility] | | [facility] | | | | | | CENTER - | | | | | | LABORATORY | | + + + + + + | K | 3.5 | 3.5 - 5.1 | [facility] | | | | | mmol/L | [facility] | | | | | | [facility] | | | | | | CENTER - | | | | | | LABORATORY | | + + + + + + | Cl | 99 | 98 - 109 mmol/L | [facility] | | | | | | [facility] | | | | | | [facility] | | | | | | CENTER - | | | | | | LABORATORY | | + + + + + + | CO2 | 26 | 24 - 31 mmol/L | [facility] | | | | | | [facility] | | | | | | [facility] | | | | | | CENTER - | | | | | | LABORATORY | | + + + + + + | Anion Gap | 12 | 3 - 16 mmol/L | [facility] | | | | | | [facility] | | | | | | [facility] | | | | | | CENTER - | | | | | | LABORATORY | | + + + + + + | Glucose | 81 | 70 - 109 mg/dL | [facility] | | | | | | [facility] | | | | | | [facility] | | | | | | CENTER - | | | | | | LABORATORY | | + + + + + + | BUN | 26 (H) | 7 - 18 mg/dL | [facility] | | | | | | [facility] | | | | | | [facility] | | | | | | CENTER - | | | | | | LABORATORY | | + + + + + + | Creatinine | 1.25 | 0.60 - 1.30 | [facility] | | | | | mg/dL | [facility] | | | | | | [facility] | | | | | | CENTER - | | | | | | LABORATORY | | + + + + + + | eGFR if not | 41 (L)Comment: | >=60 | [facility] | | | | GLOMERULAR FILTRATION | mL/min/1.73m2 | [facility] | | | GHA[place] | RATE,ESTIMATED | | MEDICAL | | | | mL/min/1.53k7Vmzl than | | CENTER - | | [...] + + + + | Calcium | 8.5 | 8.3 - 10.5 | [facility] | | | | | mg/dL | [facility] | | | | | | MEDICAL | | | | | | CENTER - | | | | | | LABORATORY | | + + + + + + | Albumin | 2.9 (L) | 3.2 - 5.0 g/dL | [facility] | | | | | | [facility] | | | | | | MEDICAL | | | | | | CENTER - | | | | | | LABORATORY | | + + + + + + | Bilirubin | 1.2 | 0.1 - 1.5 mg/dL | [facility] | | | Total | | | [facility] | | [...] + + + + | AST | 23 | 10 - 42 U/L | [facility] | | | | | | [facility] | | | | | | [facility] | | | | | | CENTER - | | | | | | LABORATORY | | + + + + + + | ALT | 11 | 6 - 45 U/L | [facility] | | | | | | [facility] | | | | | | [facility] | | | | | | CENTER - | | | | | | LABORATORY | | + + + + + + | Alkaline | 41 | 40 - 110 U/L | [facility] | | | Phosphatase | | | [facility] | | | | | | [facility] | | | | | | CENTER - | | | | | | LABORATORY | | + + + + + + | Globulin | 2.9 | 2.1 - 3.8 g/dL | [facility] | | | | | | [facility] | | | | | | [facility] | | | | | | CENTER - | | | | | | LABORATORY | | + + + + + + | Albumin/Kalani | 1.0 | 0.8 - 2.0 | [facility] | | | bulin Ratio | | | [facility] | | | | | | [facility]ICAL | | | | | | CENTER - | | | | | | LABORATORY | | + + + + + + | BUN/Creatin | 20.8 | | [facility] | | | ine [...] ST. | [address] | [place], [place] | [phone] | | [facility] | | [address] | | | - LABORATORY | | | | + + + + + CBC with Differential (07/12/2016 6:21 AM PDT) + + + + + + | Component | Value | Ref Range | Performed | Pathologist | | | | | At | Signature | + + + + + + | White Blood | 14.3 (H) | 4.0 - 11.0 K/uL | [facility] | | | Cells | | | [facility] | | | | | | [facility] | | | | | | CENTER - | | | | | | LABORATORY | | + + + + + + | Red Blood | 3.50 (L) | 3.70 - 5.20 | [facility] | | | Cells | | M/uL | [facility] | | | | | | [facility] | | | | | | CENTER - | | | | | | LABORATORY | | + + + + + + | Hemoglobin | 11.8 | 11.5 - 16.0 | [facility] | | | | | g/dL | [facility] | | | | | | [facility] | | | | | | CENTER - | | | | | | LABORATORY | | + + + + + + | Hematocrit | 33.9 (L) | 34.0 - 47.0 % | [facility] | | | | | | [facility] | | | | | | [facility] | | | | | | CENTER - | | | | | | LABORATORY | | + + + + + + | MCV | 97.1 | 83.0 - 101.0 fL | [facility] | | | | | | [facility] | | | | | | [facility] | | | | | | CENTER - | | | | | | LABORATORY | | + + + + + + | MCH | 33.7 | 28.0 - 35.0 pg | [facility] | | | | | | [facility] | | | | | | [facility] | | | | | | C[facility] - | | | | | | LABORATORY | | + + + + + + | MCHC | 34.8 | 32.0 - 36.0 | [facility] | | | | | g/dL | [facility] | | | | | | [facility]ICAL | | | | | | CENTER - | | | | | | LABORATORY | | + + + + + + | RDW-CV | 13.9 | <15.0 % | [facility] | | | | | | [facility] | | | | | | [facility] | | | | | | CENTER - | | | | | | LABORATORY | | + + + + + + | Platelet | 157 | 140 - 440 K/uL | [facility] | | | Count | | | [facility] | | | | | | [facility] | | | | | | CENTER - | | | | | | LABORATORY | | + + + + + + | MPV | 9.0 | fL | [facility] | | | | | | [facility] | | | | | | [facility] | | | | | | CENTER - | | | | | | LABORATORY | | + + + + + + | % | 57.7 | 45.0 - 82.0 % | [facility] | | | Neutrophils | | | [facility] | | | | | | MEDICAL | | | | | | CENTER - | | | | | | LABORATORY | | + + + + + + | % | 18.1 (L) | 20.0 - 45.0 % | [facility] | | | Lymphocytes | | | [facility] | | | | | | MEDICAL | | | | | | CENTER - | | | | | | LABORATORY | | + + + + + + | % Monocytes | 18.7 (H) | 4.0 - 12.0 % | [facility] | | | | | | [facility] | | | | | | [facility] | | | | | | CENTER - | | | | | | LABORATORY | | + + + + + + | % | 4.8 | 0.0 - 5.0 % | [facility] | | | Eosinophils | | | [facility] | | | | | | MEDICAL | | | | | | CENTER - | | | | | | LABORATORY | | + + + + + + | % Basophils | 0.7 | 0.0 - 1.0 % | [facility] | | | | | | [facility] | | | | | | [facility] | | | | | | CENTER - | | | | | | LABORATORY | | + + + + + + | Absolute | 8.30 | 1.80 - 8.50 | [facility] | | | Neutrophils | | K/uL | [facility] | | | | | | MEDICAL | | | | | | CENTER - | | | | | | LABORATORY | | + + + + + + | Absolute | 2.60 | 0.60 - 3.20 | [facility] | | | Lymphocytes | | K/uL | [facility] | | | | | | MEDICAL | | | | | | CENTER - | | | | | | LABORATORY | | + + + + + + | Absolute | 2.70 (H) | 0.00 - 1.00 | [facility] | | | Monocytes | | K/uL | [facility] | | | | | | MEDICAL | | | | | | CENTER - | | | | | | LABORATORY | | + + + + + + | Absolute | 0.70 (H) | 0.00 - 0.40 | [facility] | | | Eosinophils | | K/uL | [facility] | | | | | | MEDICAL | | | | | | CENTER - | | | | | | LABORATORY | | + + + + + + | Absolute | 0.10 | 0.00 - 0.10 | [facility] | | | Basophils | | K/[place] | [facility] | | | | [...] + + | [facility] | [address] | [place] | [phone] | | [facility] | | [address] | | | - LABORATORY | | | | + + + + + POC Glucose (07/11/2016 8:37 PM PDT) + +---------+ + + + | Component | Value | Ref Range | Performed | Pathologist | | | | | At | Signature | + +---------+ + + + | Glucose, | 153 (H) | 70 - 150 mg/dL | [facility] | | | POC | | | [facility] | | [...] | + + + + + | [facility] | [address] | [place] | [phone] | | [facility] | | [address] | | | - LABORATORY | | | | + + + + + POC Glucose (07/11/2016 4:48 PM PDT) + +---------+ + + + | Component | Value | Ref Range | Performed | Pathologist | | | | | At | Signature | + +---------+ + + + | Glucose, | 180 (H) | 70 - 150 mg/dL | [facility] | | | POC | | | [facility] | | | | | | [...] + | [facility] | [address] | [place] | [phone] | | [facility] | | [address] | | | - LABORATORY | | | | + + + + + POC Glucose (07/11/2016 12:14 PM PDT) + +---------+ + + + | Component | Value | Ref Range | Performed | Pathologist | | | | | At | Signature | + +---------+ + + + | Glucose, | 225 (H) | 70 - 150 mg/dL | [facility] | | | POC | | | [facility] | | [address] | [place] | [phone] | | [facility] | | [address] | | | - LABORATORY | | | | + + + + + POC Glucose (07/11/2016 9:10 AM PDT) + +---------+ + + + | Component | Value | Ref Range | Performed | Pathologist | | | | | At | Signature | + +---------+ + + + | Glucose, | 286 (H) | 70 - 150 mg/dL | [facility] | | | POC | | | [facility] | | [...] + | [facility] | [address] | [place] | [phone] | | [facility] | | [address] | | | - LABORATORY | | | | + + + + + POC Glucose (07/11/2016 6:57 AM PDT) + +---------+ + + + | Component | Value | Ref Range | Performed | Pathologist | | | | | At | Signature | + +---------+ + + + | Glucose, | 271 (H) | 70 - 150 mg/dL | [facility] | | | POC | | | [facility] | | | | | | [...] + | [facility] | [address] | [place] | [phone] | | [facility] | | [address] | | | - LABORATORY | | | | + + + + + CBC no Differential (07/11/2016 6:21 AM PDT) + + + + + + | Component | Value | Ref Range | Performed | Pathologist | | | | | At | Signature | + + + + + + | White Blood | 15.2 (H) | 4.0 - 11.0 K/uL | [facility] | | | Cells | | | [facility] | | | | | | [facility] | | | | | | CENTER - | | | | | | LABORATORY | | + + + + + + | Red Blood | 3.67 (L) | 3.70 - 5.20 | [facility] | | | Cells | | M/uL | [facility] | | | | | | MEDICAL | | | | | | CENTER - | | | | | | LABORATORY | | + + + + + + | Hemoglobin | 12.2 | 11.5 - 16.0 | [facility] | | | | | g/dL | [facility] | | | | | | MEDICAL | | | | | | CENTER - | | | | | | LABORATORY | | + + + + + + | Hematocrit | 36.4 | 34.0 - 47.0 % | [facility] | | | | | | [facility] | | | | | | [facility] | | | | | | CENTER - | | | | | | LABORATORY | | + + + + + + | MCV | 99.3 | 83.0 - 101.0 fL | [facility] | | | | | | [facility] | | | | | | [facility]ICAL | | | | | | CENTER - | | | | | | LABORATORY | | + + + + + + | MCH | 33.2 | 28.0 - 35.0 pg | [facility] | | | | | | [facility] | | | | | | [facility]ICAL | | | | | | CENTER - | | | | | | LABORATORY | | + + + + + + | MCHC | 33.4 | 32.0 - 36.0 | [facility] | | | | | g/dL | [facility] | | | | | | MEDICAL | | | | | | CENTER - | | | | | | LABORATORY | | + + + + + + | RDW-CV | 13.8 | <15.0 % | [facility] | | | | | | [facility] | | | | | | [facility]ICAL | | | | | | CENTER - | | | | | | LABORATORY | | + + + + + + | Platelet | 174 | 140 - 440 K/uL | [facility] | | | Count | | | [facility] | | | | | | MEDICAL | | | | | | CENTER - | | | | | | LABORATORY | | + + + + + + | MPV | 9.3 | fL | [facility] | | | | | | [facility] | | | | | | [...] + + | [facility] | [address] | [place] | [phone] | | [facility] | | [address] | | | - LABORATORY | | | | + + + + + Basic Metabolic Panel (07/11/2016 6:21 AM PDT) + + + + + + | Component | Value | Ref Range | Performed | Pathologist | | | | | At | Signature | + + + + + + | Na | 135 (L) | 136 - 149 | [facility] | | | | | mmol/L | [facility] | | | | | | [facility]ICAL | | | | | | CENTER - | | | | | | LABORATORY | | + + + + + + | K | 4.3 | 3.5 - 5.1 | [facility] | | | | | mmol/L | [facility] | | | | | | MEDICAL | | | | | | CENTER - | | | | | | LABORATORY | | + + + + + + | Cl | 102 | 98 - 109 mmol/L | [facility] | | | | | | [facility] | | | | | | MEDICAL | | | | | | CENTER - | | | | | | LABORATORY | | + + + + + + | CO2 | 25 | 24 - 31 mmol/L | [facility] | | | | | | [facility] | | | | | | MEDICAL | | | | | | CENTER - | | | | | | LABORATORY | | + + + + + + | Anion Gap | 8 | 3 - 16 mmol/L | [facility] | | | | | | [facility] | | | | | | [facility]ICAL | | | | | | CENTER - | | | | | | LABORATORY | | + + + + + + | Glucose | 276 (H) | 70 - 109 mg/dL | [facility] | | | | | | [facility] | | | | | | [facility]ICAL | | | | | | CENTER - | | | | | | LABORATORY | | + + + + + + | BUN | 25 (H) | 7 - 18 mg/dL | [facility] | | | | | | [facility] | | | | | | [facility] | | | | | | CENTER - | | | | | | LABORATORY | | + + + + + + | Creatinine | 1.35 (H) | 0.60 - 1.30 | [facility] | | | | | mg/dL | [facility] | | | | | | MEDICAL | | | | | | CENTER - | | | | | | LABORATORY | | + + + + + + | eGFR if not | 37 (L)Comment: | >=60 | [facility] | | | | GLOMERULAR FILTRATION | mL/min/1.73m2 | [facility] | | | GHANA[place] | RATE,ESTIMATED | | MEDICAL | | | | mL/min/1.28z8Dauh than | | CENTER - | | [...] + + + + | Calcium | 8.3 | 8.3 - 10.5 | [facility] | | | | | mg/dL | [facility] | | | | | | [facility] | | | | | | CENTER - | | | | | | LABORATORY | | + + + + + + | BUN/Creatin | 18.5 | | [facility] | | | ine Ratio | | | [facility] | | [address] | [place] | [phone] | | [facility] | | [address] | | | - LABORATORY | | | | + + + + + POC Glucose (07/10/2016 8:27 PM PDT) + +---------+ + + + | Component | Value | Ref Range | Performed | Pathologist | | | | | At | Signature | + +---------+ + + + | Glucose, | 305 (H) | 70 - 150 mg/dL | [facility] | | | POC | | | [facility] | | [...] [facility] | [address] | [place] | [phone] | | [facility] | | [address] | | | - LABORATORY | | | | + + + + + POC Glucose (07/10/2016 5:30 PM PDT) + +---------+ + + + | Component | Value | Ref Range | Performed | Pathologist | | | | | At | Signature | + +---------+ + + + | Glucose, | 306 (H) | 70 - 150 mg/dL | [facility] | | | POC | | | [facility] | | [...] + | [facility] | [address] | [place] | [phone] | | [facility] | | [address] | | | - LABORATORY | | | | + + + + + XR Hip Left 2-3 Views (07/10/2016 2:30 PM PDT) + + | Specimen | + + | | + + + + + | Narrative | Performed At | + + + | XR HIP LEFT 2-3 VIEWS 07/10/2016 1:30 PM HISTORY: intra op. | | | COMPARISON: 07/10/2016 FINDINGS: See impression. IMPRESSION - | | | 8 intraoperative fluoroscopic spot images were obtained of the left | | | femur which demonstrate interval placement of an antegrade | | | intramedullary femoral nena and proximal dynamic hip screw as well as | | | distal interlocking screws. These are seen stabilizing the known | | | intertrochanteric fracture on the left. Dictated and Signed by: | | | Christiano Ma MD Electronically signed: 07/10/2016 6:38 PM | | + + + + + | Procedure Note | + + | Bakari, Rad Results In - 07/10/2016 6:41 PM PDT XR HIP LEFT 2-3 VIEWS 07/10/2016 1:30 PM | | | | HISTORY: intra op. | | | | COMPARISON: 07/10/2016 | | | | FINDINGS: | | See impression. | | | | IMPRESSION - | | 8 intraoperative fluoroscopic spot images were obtained of the left femur which | | demonstrate interval placement of an antegrade intramedullary femoral nena and | | proximal dynamic hip screw as well as distal interlocking screws. These are seen | | stabilizing the known intertrochanteric fracture on the left. | | | | Dictated and Signed by: Christiano Ma MD | | Electronically signed: 07/10/2016 6:38 PM | + + JUSTINE PerfectoSorinJim Clayton No Bonifacio (07/10/2016 2:29 PM PDT) + + | Specimen | + + | | + + + + + | Narrative | Performed At | + + + | No Radiologist interpretation, please see Chart Review. | [facility] | + + + + +---------+ + + | Performing | Address | City/State/Zipcode | Phone Number | | Organization | | | | + +---------+ + + | [facility] | | | | + +---------+ + + Urinalysis with Microscopic with Culture if Indicated (07/10/2016 11:26 AM PDT) + + + + + + | Component | Value | Ref Range | Performed | Pathologist | | | | | At | Signature | + + + + + + | Color, | Straw | Light Yellow, | [facility] | | | Urine | | Yellow, Straw | [facility] | | | | | | [facility] | | | | | | [facility] - | | | | | | LABORATORY | | + + + + + + | Clarity, | Clear | Clear | [facility] | | | Urine | | | [facility] | | | | | | [facility] | | | | | | [facility] - | | | | | | LABORATORY | | + + + + + + | pH, Urine | 8.0 | 5.0 - 8.0 | [facility] | | | | | | [facility] | | | | | | [facility] | | | | | | [facility] - | | | | | | LABORATORY | | + + + + + + | Specific | 1.009 | 1.001 - 1.030 | [facility] | | | [place], | | | [facility] | | | Urine | | | MEDICAL | | | | | | CENTER - | | | | | | LABORATORY | | + + + + + + | Protein, | 100 mg/dL (A) | Negative | [facility] | | | Urine | | | [facility] | | | | | | [facility] | | | | | | C[facility] - | | | | | | LABORATORY | | + + + + + + | Blood, | Negative | Negative | [facility] | | | Urine | | | [facility] | | | | | | [facility] | | | | | | C[facility] - | | | | | | LABORATORY | | + + + + + + | Glucose, | 50 mg/dL (A) | Negative | [facility] | | | Urine | | | [facility] | | | | | | [facility] | | | | | | [facility] - | | | | | | LABORATORY | | + + + + + + | Ketones, | Negative | Negative | [facility] | | | Urine | | | [facility] | | | | | | [facility] | | | | | | [facility] - | | | | | | LABORATORY | | + + + + + + | Bilirubin, | Negative | Negative | [facility] | | | Urine | | | [facility] | | | | | | [facility] | | | | | | CENTER - | | | | | | LABORATORY | | + + + + + + | Nitrite, | Negative | Negative | [facility] | | | Urine | | | [facility] | | | | | | [facility] | | | | | | CENTER - | | | | | | LABORATORY | | + + + + + + | Leukocyte | Negative | Negative | [facility] | | | Esterase, | | | [facility] | | | Urine | | | MEDICAL | | | | | | CENTER - | | | | | | LABORATORY | | + + + + + + | Urobilinoge | Negative | 0.2 mg/dL, 1.0 | [facility] | | | n, Urine | | mg/dL, Negative | [facility] | | | | | | MEDICAL | | | | | | CENTER - | | | | | | LABORATORY | | + + + + + + | White Blood | 0-2 | 0 - 2 /HPF | [facility] | | | Cells, | | | [facility] | | | Urine | | | MEDICAL | | | | | | CENTER - | | | | | | LABORATORY | | + + + + + + | Red Blood | 0-2 | 0 - 2 /HPF | [facility] | | | Cells, | | | [facility] | | | Urine | | | MEDICAL | | | | | | CENTER - | | | | | | LABORATORY | | + + + + + + | Squamous | 0-2 | 0 - 2 /LPF | [facility] | | | Epithelial | | | [facility] | | | Cells, | | | MEDICAL | | | Urine | | | CENTER - | | | | | | LABORATORY | | + + + + + + | Bacteria, | Negative | Negative /HPF | [facility] | | | Urine | | | [facility] | | | | | | MEDICAL | | | | | | CENTER - | | | | | | LABORATORY | | + + + + + + | Mucus, | Present (A) | Negative /LPF | [facility] | | | Urine | | | [facility] | | | | | | [facility]ICAL | | | | | | CENTER - | | | | | | LABORATORY | | + + + + + + | Urine | Urine Culture Not | | [facility] | | | Comment | Indicated | | [facility] | | | | | | MEDICAL | | | | | | CENTER - | | | | | | LABORATORY | | + + + + + + + + | Specimen | + + | Urine - Urine | | specimen obtained by | | single | | catheterization of | | bladder (specimen) | + + + + + + + | Performing | Address | City/State/Zipcode | Phone Number | | Organization | | | | + + + + + | [facility] | [address] | [place], [place] | [phone] | | [facility] | | [address] | | | - LABORATORY | | | | + + + + + Extra Blood Bank Tube (07/10/2016 9:30 AM PDT) + + + + + + | Component | Value | Ref Range | Performed | Pathologist | | | | | At | Signature | + + + + + + | Hold BB | Hold Specimen | | [facility] | | | | | | [facility] | | | | | | MEDICAL | | | | | | CENTER - | | | | | | BLOOD BANK | | + + + + + + + + | Specimen | + + | Blood specimen | | (specimen) | + + + + + + + | Performing | Address | City/State/Zipcode | Phone Number | | Organization | | | | + + + + + | [facility] | [address] | [place] | | | [facility] | | [address] | | | - BLOOD BANK | | | | + + + + + Extra Gold Top Tube (07/10/2016 9:30 AM PDT) + +-------+ + + + | Component | Value | Ref Range | Performed | Pathologist | | | | | At | Signature | + +-------+ + + + | Extra Gold | Done | | [facility] | | | Top Tube | | | [facility] | | | | | | MEDICAL | | | | | | CENTER - | | | | | | LABORATORY | | + +-------+ + + + + + | Specimen | + + | Blood | + + + + + + + | Performing | Address | City/State/Zipcode | Phone Number | | Organization | | | | + + + + + | [facility] | [address] | [place] | [phone] | | [facility] | | [address] | | | - LABORATORY | | | | + + + + + Extra Green Top Tube (07/10/2016 9:30 AM PDT) + +-------+ + + + | Component | Value | Ref Range | Performed | Pathologist | | | | | At | Signature | + +-------+ + + + | Extra Green | Done | | [facility] | | | Top Tube | | | [facility] | | | | | | MEDICAL | | | | | | CENTER - | | | | | | LABORATORY | | + +-------+ + + + + + | Specimen | + + | Blood | + + + + + + + | Performing | Address | City/State/Zipcode | Phone Number | | Organization | | | | + + + + + | [facility] | [address] | [place] | [phone] | | [facility] | | [address] | | | - LABORATORY | | | | + + + + + Protime INR (07/10/2016 9:30 AM PDT) + + + + + + | Component | Value | Ref Range | Performed | Pathologist | | | | | At | Signature | + + + + + + | Prothrombin | 12.9 | 11.3 - 13.9 | [facility] | | | Time | | seconds | [facility] | | | | | | MEDICAL | | | | | | CENTER - | | | | | | LABORATORY | | + + + + + + | INR | 0.95Comment: Usual Oral | 0.90 - 1.10 | [facility] | | | | Anticoagulation Range: | | [facility] | | | | 2.0 - 3.0High | | MEDICAL | | | | Level Oral | | CENTER - | | | | Anticoagulation Range: | | LABORATORY | | | | 2.5 - 3.5 | | | | + + + + + + + + | Specimen | + + | Blood | + + + + + + + | Performing | Address | City/State/Zipcode | Phone Number | | Organization | | | | + + + + + | [facility] | [address] | [place] | [phone] | | [facility] | | [address] | | | - LABORATORY | | | | + + + + + Basic Metabolic Panel (07/10/2016 9:30 AM PDT) + + + + + + | Component | Value | Ref Range | Performed | Pathologist | | | | | At | Signature | + + + + + + | Na | 140 | 136 - 149 | [facility] | | | | | mmol/L | [facility] | | | | | | MEDICAL | | | | | | CENTER - | | | | | | LABORATORY | | + + + + + + | K | 3.9 | 3.5 - 5.1 | [facility] | [...] [facility] | | | | | | [facility] | | | | | | MEDICAL | | | | | | CENTER - | | | | | | LABORATORY | | + + + + + + | Anion Gap | 10 | 3 - 16 mmol/L | [facility] | | | | | | [facility] | | | | | | MEDICAL | | | | | | CENTER - | | | | | | LABORATORY | | + + + + + + | Glucose | 195 (H) | 70 - 109 mg/dL | [facility] | | | | | | [facility] | | | | | | MEDICAL | | | | | | CENTER - | | | | | | LABORATORY | | + + + + + + | BUN | 17 | 7 - 18 mg/dL | [facility] | | | | | | [facility] | | | | | | MEDICAL | | | | | | CENTER - | | | | | | LABORATORY | | + + + + + + | Creatinine | 1.06 | 0.60 - 1.30 | [facility] | | | | | mg/dL | [facility] | | | | | | MEDICAL | | | | | | CENTER - | | | | | | LABORATORY | | + + + + + + | eGFR if not | 49 (L)Comment: | >=60 | [facility] | | | | GLOMERULAR FILTRATION | mL/min/1.73m2 | [facility] | | | GHANAIAN | RATE,ESTIMATED | | MEDICAL | | | | mL/min/1.98s4Hwch than | | CENTER - | | [...] + + + + | Calcium | 9.2 | 8.3 - 10.5 | [facility] | | | | | mg/dL | [facility] | | | | | | [facility] | | | | | | CENTER - | | | | | | LABORATORY | | + + + + + + | BUN/Creatin | 16.0 | | [facility] | | | ine Ratio | | | [facility] | | | | | | [...] + | [facility] | [address] | [place] | [phone] | | [facility] | | [address] | | | - LABORATORY | | | | + + + + + CBC with Differential (07/10/2016 9:30 AM PDT) + + + + + + | Component | Value | Ref Range | Performed | Pathologist | | | | | At | Signature | + + + + + + | White Blood | 15.9 (H) | 4.0 - 11.0 K/uL | [facility] | | | Cells | | | [facility] | | | | | | MEDICAL | | | | | | CENTER - | | | | | | LABORATORY | | + + + + + + | Red Blood | 4.42 | 3.70 - 5.20 | [facility] | | | Cells | | M/uL | [facility] | | | | | | MEDICAL | | | | | | CENTER - | | | | | | LABORATORY | | + + + + + + | Hemoglobin | 14.7 | 11.5 - 16.0 | [facility] | | | | | g/dL | [facility] | | | | | | [facility] | | | | | | CENTER - | | | | | | LABORATORY | | + + + + + + | Hematocrit | 43.5 | 34.0 - 47.0 % | [facility] | | | | | | [facility] | | | | | | MEDICAL | | | | | | CENTER - | | | | | | LABORATORY | | + + + + + + | MCV | 98.2 | 83.0 - 101.0 fL | [facility] | | | | | | [facility] | | | | | [facility] | | | | | | C[facility] - | | | | | | LABORATORY | | + + + + + + | MCH | 33.1 | 28.0 - 35.0 pg | [facility] | | | | | | [facility] | | | | | | MEDICAL | | | | | | CENTER - | | | | | | LABORATORY | | + + + + + + | MCHC | 33.7 | 32.0 - 36.0 | [facility] | | | | | g/dL | [facility] | | | | | | MEDICAL | | | | | | CENTER - | | | | | | LABORATORY | | + + + + + + | RDW-CV | 13.8 | <15.0 % | [facility] | | | | | | [facility] | | | | | | MEDICAL | | | | | | CENTER - | | | | | | LABORATORY | | + + + + + + | Platelet | 217 | 140 - 440 K/uL | [facility] | | | Count | | | [facility] | | | | | | MEDICAL | | | | | | CENTER - | | | | | | LABORATORY | | + + + + + + | MPV | 9.3 | fL | [facility] | | | | | | [facility] | | | | | | MEDICAL | | | | | | CENTER - | | | | | | LABORATORY | | + + + + + + | % | 60.8 | 45.0 - 82.0 % | [facility] | | | Neutrophils | | | [facility] | | | | | | MEDICAL | | | | | | CENTER - | | | | | | LABORATORY | | + + + + + + | % | 25.9 | 20.0 - 45.0 % | [facility] | | | Lymphocytes | | | [facility] | | | | | | MEDICAL | | | | | | CENTER - | | | | | | LABORATORY | | + + + + + + | % Monocytes | 6.9 | 4.0 - 12.0 % | [facility] | | | | | | [facility] | | | | | | MEDICAL | | | | | | CENTER - | | | | | | LABORATORY | | + + + + + + | % | 5.6 (H) | 0.0 - 5.0 % | [facility] | | | Eosinophils | | | [facility] | | | | | | MEDICAL | | | | | | CENTER - | | | | | | LABORATORY | | + + + + + + | % Basophils | 0.8 | 0.0 - 1.0 % | [facility] | | | | | | [facility] | | | | | | MEDICAL | | | | | | CENTER - | | | | | | LABORATORY | | + + + + + + | Absolute | 9.70 (H) | 1.80 - 8.50 | [facility] | | | Neutrophils | | K/uL | [facility] | | | | | | MEDICAL | | | | | | CENTER - | | | | | | LABORATORY | | + + + + + + | Absolute | 4.10 (H) | 0.60 - 3.20 | [facility] | | | Lymphocytes | | K/uL | [facility] | | | | | | MEDICAL | | | | | | CENTER - | | | | | | LABORATORY | | + + + + + + | Absolute | 1.10 (H) | 0.00 - 1.00 | [facility] | | | Monocytes | | K/uL | [facility] | | | | | | MEDICAL | | | | | | CENTER - | | | | | | LABORATORY | | + + + + + + | Absolute | 0.90 (H) | 0.00 - 0.40 | [facility] | | | Eosinophils | | K/uL | [facility] | | | | | | MEDICAL | | | | | | CENTER - | | | | | | LABORATORY | | + + + + + + | Absolute | 0.10 | 0.00 - 0.10 | [facility] | | | Basophils | | K/uL | [facility] | | | | | | [...] [facility] | [address] | [place], [place] | [phone] | | [facility] | | [address] | | | - LABORATORY | | | | + + + + + XR Chest AP Portable (07/10/2016 9:25 AM PDT) + + | Specimen | + + | | + + + + + | Narrative | Performed At | + + + | XR CHEST AP PORTABLE 07/10/2016 9:17 AM HISTORY: Dyspnea. | [facility] | | COMPARISON: 05/14/2011 Findings: Stable cardiomegaly and interval | | | increase diffuse prominence and mild indistinctness of the pulmonary | | | vasculature. Median sternotomy wires are present. Aortic | | | calcifications are present. Bones and soft tissues are unchanged. | | | Bones are diffusely osteopenic. No evidence of pneumothorax or | | | pleural effusion. Minimal left basilar airspace disease. | | | IMPRESSION - Cardiomegaly with signs of mild pulmonary vascular | | | congestion. Dictated and Signed by: Christiano Ma MD | | | Electronically signed: 07/10/2016 1:24 PM | | + + + + + | Procedure Note | + + | Bakari, Rad Results In - 07/10/2016 1:27 PM PDT XR CHEST AP PORTABLE 07/10/2016 9:17 AM | | | | HISTORY: Dyspnea. | | | | COMPARISON: 05/14/2011 | | | | Findings: Stable cardiomegaly and interval increase diffuse prominence and mild | | indistinctness of the pulmonary vasculature. Median sternotomy wires are | | present. Aortic calcifications are present. Bones and soft tissues are | | unchanged. Bones are diffusely osteopenic. No evidence of pneumothorax or | | pleural effusion. Minimal left basilar airspace disease. | | | | IMPRESSION - | | Cardiomegaly with signs of mild pulmonary vascular congestion. | | | | Dictated and Signed by: Christiano Ma MD | | Electronically signed: 07/10/2016 1:24 PM | + + + +---------+ + + | Performing | Address | City/State/Zipcode | Phone Number | | Organization | | | | + +---------+ + + | [facility] | | | | + +---------+ + + XR Hip Left 2-3 Views (07/10/2016 9:25 AM PDT) + + | Specimen | + + | | + + + + + | Narrative | Performed At | + + + | XR HIP LEFT 2-3 VIEWS 07/10/2016 9:17 AM HISTORY: fall, deformity. | | | COMPARISON: None. FINDINGS: See impression. IMPRESSION - | | | Intertrochanteric fracture of the left femur with complete isolation | | | displacement of the lesser trochanter. Femoral head remains | | | appropriately positioned within the acetabula. Background of mild | | | bilateral hip degenerative change, right greater than left. | | | Extensive bilateral vascular calcifications and surgical clips are | | | seen on the left. Dictated and Signed by: Christiano aM MD | | | Electronically signed: 07/10/2016 1:23 PM | | + + + + + | Procedure Note | + + | Taras Melendez Results In - 07/10/2016 1:26 PM PDT XR HIP LEFT 2-3 VIEWS 07/10/2016 9:17 AM | | | | HISTORY: fall, deformity. | | | | COMPARISON: None. | | | | FINDINGS: | | See impression. | | | | IMPRESSION - | | Intertrochanteric fracture of the left femur with complete isolation | | displacement of the lesser trochanter. Femoral head remains appropriately | | positioned within the acetabula. | | | | Background of mild bilateral hip degenerative change, right greater than left. | | | | Extensive bilateral vascular calcifications and surgical clips are seen on the | | left. | | | | Dictated and Signed by: Christiano Ma MD | | Electronically signed: 07/10/2016 1:23 PM | + + ECG 12 lead (07/10/2016 8:55 AM PDT) + + + + + + | Component | Value | Ref Range | Performed | Pathologist | | | | | At | Signature | + + + + + + | VENTRICULAR | 71 | BPM | [facility] | | | RATE EKG | | | | | + + + + + + | ATRIAL RATE | 71 | BPM | [facility] | | + + + + + + | P-R | 296 | ms | [facility] | | | INTERVAL | | | | | + + + + + + | QRS | 134 | ms | [facility] | | | DURATION | | | | | + + + + + + | Q-T | 458 | ms | [facility] | | | INTERVAL | | | | | + + + + + + | Q-T | 497 | ms | [facility] | | | INTERVAL | | | | | | (CORRECTED) | | | | | + + + + + + | P WAVE AXIS | 79 | degrees | [facility] | | + + + + + + | QRS AXIS | -44 | degrees | [facility] | | + + + + + + | T AXIS | 79 | degrees | [facility] | | + + + + + + | INTERPRETAT | Sinus rhythm with 1st | | [facility] | | | ION TEXT | degree AV blockLeft axis | | | | | | deviationRight bundle | | | | | | branch blockModerate | | | | | | voltage criteria for | | | | | | LVH, may be normal | | | | | | variantInferior infarct | | | | | | , age undeterminedT wave | | | | | | abnormality, consider | | | | | | lateral ischemiaAbnormal | | | | | | ECGWhen compared with | | | | | | ECG of 12-JAN-2016 | | | | | | 09:27,Significant | | | | | | changes have | | | | | | occurredConfirmed by | | | | | | VERDUGO MD, ROSALBA ([id number]) | | | | | | on 07/11/2016 9:56:43 AM | | | | + + + + + + + + | Specimen | + + | | + + + + + | Narrative | Performed At | + + + | | | + + + + +---------+ + + | Performing | Address | City/State/Zipcode | Phone Number | | Organization | | | | + +---------+ + + | [facility] | | | | + +---------+ + + documented in this encounter Visit Diagnoses + + | Diagnosis | + + | Intertrochanteric fracture of left hip, closed, initial encounter (HCC) - Primary | + + | Fall at home, initial encounter | + + | Essential hypertension Unspecified essential hypertension | + + | Atrial fibrillation, unspecified type (HCC) | + + | 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, unspecified custodial | | insulin use status | + + | 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, | | with long-term current use of insulin (HCC) | + + | 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 | | angina pectoris | + + documented in this encounter Administered Medications + +--------+ +--------+------+------+ | Medication Order | MAR | Action | Dose | Rate | Site | | | Action | Date | | | | + +--------+ +--------+------+------+ | acetaminophen (TYLENOL) tablet | Given | 07/13/19 | 650 mg | | | | 650 mg 650 mg, Oral, EVERY 6 | | 17 9:31 | | | | | HOURS PRN, Pain, Starting Mon | | AM PDT | | | | | 07/12/16 at 0737 | | | | | | + +--------+ +--------+------+------+ +---+---+ | | | +---+---+ + +-------+ +--------+---+---+ | allopurinol (ZYLOPRIM) tablet | Given | 07/14/19 | 100 mg | | | | 100 mg 100 mg, Oral, DAILY, | | 17 8:32 | | | | | First dose on 07/10/16 at 1615 | | AM PDT | | | | + +-------+ +--------+---+---+ +-------+ +--------+---+---+ | Given | 07/13/19 | 100 mg | | | | | 17 9:20 | | | | | | AM PDT | | | | +-------+ +--------+---+---+ | Given | 07/12/19 | 100 mg | | | | | 17 8:28 | | | | | | AM PDT | | | | +-------+ +--------+---+---+ +---+---+ | | | +---+---+ + +-------+ +------+---+---+ | amLODIPine (NORVASC) tablet 5 | Given | 07/12/19 | 5 mg | | | | mg 5 mg, Oral, DAILY, First dose | | 17 8:28 | | | | | on 07/10/16 at 1615 | | AM PDT | | | | + +-------+ +------+---+---+ +---+---+ | | | +---+---+ + +-------+ +-------+---+---+ | aspirin EC tablet 81 mg 81 mg, | Given | 07/14/19 | 81 mg | | | | Oral, DAILY, First dose on Sat | | 17 8:27 | | | | | 07/10/16 at 1615 | | AM PDT | | | | + +-------+ +-------+---+---+ +-------+ +-------+---+---+ | Given | 07/13/19 | 81 mg | | | | | 17 9:20 | | | | | | AM PDT | | | | +-------+ +-------+---+---+ | Given | 07/12/19 | 81 mg | | | | | 17 8:28 | | | | | | AM PDT | | | | +-------+ +-------+---+---+ +---+---+ | | | +---+---+ + +-------+ +-------+---+---+ | atorvaSTATin (LIPITOR) tablet | Given | 07/13/19 | 40 mg | | | | 40 mg 40 mg, Oral, NIGHTLY, | | 17 8:37 | | | | | First dose on 07/10/16 at 2100 | | PM PDT | | | | + +-------+ +-------+---+---+ +-------+ +-------+---+---+ | Given | 07/12/19 | 40 mg | | | | | 17 8:29 | | | | | | PM PDT | | | | +-------+ +-------+---+---+ | Given | 07/11/19 | 40 mg | | | | | 17 8:31 | | | | | | PM PDT | | | | +-------+ +-------+---+---+ +---+---+ | | | +---+---+ + +-------+ +-------+---+---+ | bisacodyl (DULCOLAX) | Given | 07/14/19 | 10 mg | | | | suppository 10 mg 10 mg, Rectal, | | 17 11:56 | | | | | DAILY PRN, Constipation, | | AM PDT | | | | | Starting 07/13/16 at 1133 | | | | | | + +-------+ +-------+---+---+ +---+---+ | | | +---+---+ + +---------+ +-----+-------+---+ | ceFAZolin in NS (ANCEF) IVPB 1 | New Bag | 07/12/19 | 1 g | 100 | | | g 1 g, Intravenous, Administer | | 17 5:00 | | mL/hr | | | over 30 Minutes, EVERY 6 HOURS (4 | | AM PDT | | | | | times per day), First dose on | | | | | | | 07/10/16 at 1800, For 3 doses, | | | | | | | Start 6 hours after previous | | | | | | | dose. Last dose to be given | | | | | | | within 24 hours of surgery end | | | | | | | time., Post-op/Phase II, | | | | | | | Indications: Surgical Prophylaxis | | | | | | + +---------+ +-----+-------+---+ +---------+ +-----+-------+---+ | New Bag | 07/11/19 | 1 g | 100 | | | | 17 11:40 | | mL/hr | | | | PM PDT | | | | +---------+ +-----+-------+---+ | New Bag | 07/11/19 | 1 g | | | | | 17 6:13 | | | | | | PM PDT | | | | +---------+ +-----+-------+---+ +---+---+ | | | +---+---+ + +---------+ +---+ +---+ | dextrose 5% and sodium chloride | New Bag | 07/11/19 | | 75 mL/hr | | | 0.45% (D5 1/2 NS) infusion at | | 17 4:47 | | | | | 75 mL/hr, Intravenous, | | PM PDT | | | | | CONTINUOUS, Starting 07/10/16 | | | | | | | at 1615, For 12 hours | | | | | | + +---------+ +---+ +---+ +---+---+ | | | +---+---+ + +-------+ +--------+---+---+ | docusate sodium (COLACE) | Given | 07/14/19 | 100 mg | | | | capsule 100 mg 100 mg, Oral, 2 | | 17 8:27 | | | | | TIMES DAILY PRN, Constipation, | | AM PDT | | | | | Starting 07/10/16 at 1753, | | | | | | | Swallow capsule whole., | | | | | | + +-------+ +--------+---+---+ +-------+ +--------+---+---+ | Given | 07/13/19 | 100 mg | | | | | 17 9:19 | | | | | | AM PDT | | | | +-------+ +--------+---+---+ | Given | 07/12/19 | 100 mg | | | | | 17 8:29 | | | | | | PM PDT | | | | +-------+ +--------+---+---+ +---+---+ | | | +---+---+ + +-------+ +------+---+---+ | folic acid tablet 1 mg 1 mg, | Given | 07/14/19 | 1 mg | | | | Oral, DAILY, First dose on Sat | | 17 8:32 | | | | | 07/10/16 at 1615 | | AM PDT | | | | + +-------+ +------+---+---+ +-------+ +------+---+---+ | Given | 07/13/19 | 1 mg | | | | | 17 9:20 | | | | | | AM PDT | | | | +-------+ +------+---+---+ | Given | 07/12/19 | 1 mg | | | | | 17 8:28 | | | | | | AM PDT | | | | +-------+ +------+---+---+ +---+---+ | | | +---+---+ + +-------+ +-------+---+---+ | furosemide (LASIX) tablet 40 mg | Given | 07/12/19 | 40 mg | | | | 40 mg, Oral, 2 TIMES DAILY 0800 | | 17 5:36 | | | | | & 1600, First dose on 07/10/16 | | PM PDT | | | | | at 1615 | | | | | | + +-------+ +-------+---+---+ +-------+ +-------+---+---+ | Given | 07/12/19 | 40 mg | | | | | 17 7:46 | | | | | | AM PDT | | | | +-------+ +-------+---+---+ +---+---+ | | | +---+---+ + +-------+ +-------+---+---+ | hydrALAZINE (APRESOLINE) | Given | 07/11/19 | 10 mg | | | | injection 10 mg 10 mg, | | 17 6:08 | | | | | Intravenous, EVERY 4 HOURS PRN, | | PM PDT | | | | | SBP >180, Starting 07/10/16 at | | | | | | | 1552 | | | | | | + +-------+ +-------+---+---+ +---+---+ | | | +---+---+ + +-------+ + +---+---+ | HYDROcodone-acetaminophen | Given | 07/14/19 | 1 tablet | | | | (NORCO) 5-325 mg per tablet 1 | | 17 1:51 | | | | | tablet 1 tablet, Oral, EVERY 4 | | PM PDT | | | | | HOURS PRN, Pain, Starting Sat | | | | | | | 07/10/16 at 1552 | | | | | | + +-------+ + +---+---+ +-------+ + +---+---+ | Given | 07/14/19 | 1 tablet | | | | | 17 8:27 | | | | | | AM PDT | | | | +-------+ + +---+---+ | Given | 07/13/19 | 1 tablet | | | | | 17 8:37 | | | | | | PM PDT | | | | +-------+ + +---+---+ +---+---+ | | | +---+---+ + +-------+ +--------+---+---+ | HYDROmorphone (DILAUDID) 1 | Given | 07/11/19 | 0.5 mg | | | | mg/mL injection 0.5 mg 0.5 mg, | | 17 9:32 | | | | | Intravenous, ONCE, 07/10/16 at | | AM PDT | | | | | 0845, For 1 dose | | | | | | + +-------+ +--------+---+---+ +---+---+ | | | +---+---+ + +-------+ + +---+ + | insulin glargine (LANTUS | Given | 07/12/19 | 60 Units | | Abdomen- | | SOLOSTAR) 100 units/mL injection | | 17 8:38 | | | RLQ | | (pen) 60 Units 60 Units, | | PM PDT | | | | | Subcutaneous, EVERY 12 HOURS (2 | | | | | | | times per day), First dose on Sat | | | | | | | 07/10/16 at 2100 | | | | | | + +-------+ + +---+ + +-------+ + +---+ + | Given | 07/12/19 | 60 Units | | Abdomen- | | | 17 9:14 | | | LLQ | | | AM PDT | | | | +-------+ + +---+ + | Given | 07/11/19 | 60 Units | | Abdomen- | | | 17 8:31 | | | LLQ | | | PM PDT | | | | +-------+ + +---+ + +---+---+ | | | +---+---+ + +-------+ +---------+---+ + | insulin lispro (humaLOG | Given | 07/14/19 | 6 Units | | Arm-Righ | | KWIKPEN) 100 units/mL injection | | 17 12:18 | | | t Upper | | (pen) 0-12 Units 0-12 Units, | | PM PDT | | | | | Subcutaneous, 4 TIMES DAILY WITH | | | | | | | MEALS & NIGHTLY, First dose on | | | | | | | 07/10/16 at 1700, CORRECTION | | | | | | | SCALE: Blood Glucose (BG) < | | | | | | | 150: None BG | | | | | | | 150-200: DAY: 2 units. NIGHT: | | | | | | | 0 units BG 201-250: DAY: 4 | | | | | | | units. NIGHT: 2 units BG | | | | | | | 251-300: DAY: 6 units. NIGHT: | | | | | | | 4 units BG 301-350: DAY: 8 | | | | | | | units. NIGHT: 6 units BG | | | | | | | 351-400: DAY: 10 units. NIGHT: 8 | | | | | | | units BG > 400 : DAY: 12 | | | | | | | units. NIGHT: 10 units | | | | | | | AND CALL PROVIDER | | | | | | | , Use DAY DOSE for doses | | | | | | | scheduled: AC, NPO, Daytime | | | | | | | 4977-6080 Use NIGHT DOSE for | | | | | | | doses scheduled: HS, 3AM, | | | | | | | Nighttime 7988-2874, | | | | | | + +-------+ +---------+---+ + +-------+ +---------+---+ + | Given | 07/14/19 | 2 Units | | Arm-Righ | | | 17 8:26 | | | t Upper | | | AM PDT | | | | +-------+ +---------+---+ + | Given | 07/12/19 | 2 Units | | Arm-Righ | | | 17 5:36 | | | t Upper | | | PM PDT | | | | +-------+ +---------+---+ + +---+---+ | | | +---+---+ + +-------+ +--------+---+---+ | lactulose liquid 30 mL 30 mL, | Given | 07/14/19 | 30 mLs | | | | Oral, EVERY 1 HOUR PRN, | | 17 11:55 | | | | | Constipation, Starting 07/13/16 | | AM PDT | | | | | at 1133 | | | | | | + +-------+ +--------+---+---+ +---+---+ | | | +---+---+ + +-------+ +-------+---+---+ | lisinopril (PRINIVIL, ZESTRIL) | Given | 07/14/19 | 20 mg | | | | tablet 20 mg 20 mg, Oral, DAILY, | | 17 8:29 | | | | | First dose on 07/10/16 at 1615 | | AM PDT | | | | + +-------+ +-------+---+---+ +-------+ +-------+---+---+ | Given | 07/13/19 | 20 mg | | | | | 17 9:17 | | | | | | AM PDT | | | | +-------+ +-------+---+---+ | Given | 07/12/19 | 20 mg | | | | | 17 8:28 | | | | | | AM PDT | | | | +-------+ +-------+---+---+ +---+---+ | | | +---+---+ + +-------+ +---------+---+---+ | methotrexate tablet 12.5 mg | Given | 07/13/19 | 12.5 mg | | | | 12.5 mg, Oral, WEEKLY, First dose | | 17 3:11 | | | | | on 07/12/16 at 0900, Use | | PM PDT | | | | | chemotherapy handling | | | | | | | precautions. Protect from light., | | | | | | | Indications: OTHER NON-ONCOLOGY, | | | | | | | Rheumatoid Arthritis | | | | | | + +-------+ +---------+---+---+ +---+---+ | | | +---+---+ + +-------+ +------+---+---+ | metoclopramide (REGLAN) 5 mg/mL | Given | 07/11/19 | 5 mg | | | | injection 5 mg 5 mg, | | 17 9:28 | | | | | Intravenous, ONCE, 07/10/16 at | | AM PDT | | | | | 0845, For 1 dose, Protect from | | | | | | | light., | | | | | | + +-------+ +------+---+---+ +---+---+ | | | +---+---+ + +-------+ +------+---+---+ | metoclopramide (REGLAN) 5 mg/mL | Given | 07/11/19 | 5 mg | | | | injection 5 mg 5 mg, | | 17 11:49 | | | | | Intravenous, ONCE, 07/10/16 at | | AM PDT | | | | | 1150, For 1 dose, Protect from | | | | | | | light., | | | | | | + +-------+ +------+---+---+ +---+---+ | | | +---+---+ + +-------+ +--------+---+---+ | metoprolol succinate | Given | 07/14/19 | 200 mg | | | | (TOPROL-XL) ER tablet 200 mg 200 | | 17 8:27 | | | | | mg, Oral, DAILY, First dose on | | AM PDT | | | | | 07/10/16 at 1615 | | | | | | + +-------+ +--------+---+---+ +-------+ +--------+---+---+ | Given | 07/13/19 | 200 mg | | | | | 17 9:08 | | | | | | AM PDT | | | | +-------+ +--------+---+---+ | Given | 07/12/19 | 200 mg | | | | | 17 8:28 | | | | | | AM PDT | | | | +-------+ +--------+---+---+ +---+---+ | | | +---+---+ + +-------+ +--------+---+---+ | nalbuphine (NUBAIN) injection | Given | 07/11/19 | 2.5 mg | | | | 2.5-5 mg 2.5-5 mg, Intravenous, | | 17 6:09 | | | | | EVERY 4 HOURS PRN, Itching, | | PM PDT | | | | | Starting 07/10/16 at 1552, For | | | | | | | 24 hours, For itching, use the | | | | | | | following sequence if meds are | | | | | | | ordered: Give nalbuphine first. | | | | | | | If maximum dose given or | | | | | | | ineffective, give | | | | | | | diphenhydramine, Post-op/Phase II | | | | | | + +-------+ +--------+---+---+ +---+---+ | | | +---+---+ + +-------+ +------+---+---+ | ondansetron (ZOFRAN) injection | Given | 07/11/19 | 4 mg | | | | 4 mg 4 mg, Intravenous, EVERY 6 | | 17 4:53 | | | | | HOURS PRN, Nausea, Vomiting, | | PM PDT | | | | | Starting 07/10/16 at 1552, For | | | | | | | 24 hours, First line agent, | | | | | | | Post-op/Phase II | | | | | | + +-------+ +------+---+---+ +---+---+ | | | +---+---+ + +-------+ +--------+---+---+ | oxyCODONE (ROXICODONE) tablet | Given | 07/13/19 | 2.5 mg | | | | 2.5-10 mg 2.5-10 mg, Oral, EVERY | | 17 10:24 | | | | | 3 HOURS PRN, Pain, Starting Sat | | AM PDT | | | | | 07/10/16 at 1552, First dose must | | | | | | | be the lowest dose, can titrate | | | | | | | to effective dose by repeat of | | | | | | | lowest dose every 60 minutes prn | | | | | | | pain, may not exceed maximum dose | | | | | | | ordered per interval. Use Pasero | | | | | | | Sedation Scale., Post-op/Phase | | | | | | | II | | | | | | + +-------+ +--------+---+---+ +---+---+ | | | +---+---+ + +-------+ +------+---+---+ | polyethylene glycol (MIRALAX) | Given | 07/14/19 | 17 g | | | | powder 17 g 17 g, Oral, DAILY | | 17 8:27 | | | | | PRN, Constipation, Starting Sat | | AM PDT | | | | | 07/10/16 at 1753, Mix with 8 oz. | | | | | | | water., | | | | | | + +-------+ +------+---+---+ +-------+ +------+---+---+ | Given | 07/13/19 | 17 g | | | | | 17 9:13 | | | | | | AM PDT | | | | +-------+ +------+---+---+ | Given | 07/12/19 | 17 g | | | | | 17 10:50 | | | | | | AM PDT | | | | +-------+ +------+---+---+ +---+---+ | | | +---+---+ + +-------+ +-------+---+---+ | rivaroxaban (XARELTO) tablet 10 | Given | 07/14/19 | 10 mg | | | | mg 10 mg, Oral, DAILY, First | | 17 8:32 | | | | | dose (after last modification) on | | AM PDT | | | | | 07/11/16 at 0900, | | | | | | | Post-op/Phase II | | | | | | + +-------+ +-------+---+---+ +-------+ +-------+---+---+ | Given | 07/13/19 | 10 mg | | | | | 17 9:19 | | | | | | AM PDT | | | | +-------+ +-------+---+---+ | Given | 07/12/19 | 10 mg | | | | | 17 8:29 | | | | | | AM PDT | | | | +-------+ +-------+---+---+ +---+---+ | | | +---+---+ + +-------+ +--------+---+---+ | senna (SENOKOT) tablet 8.6 mg | Given | 07/14/19 | 8.6 mg | | | | 8.6 mg, Oral, 2 TIMES DAILY PRN, | | 17 8:32 | | | | | Constipation, Starting 07/10/16 | | AM PDT | | | | | at 1752 | | | | | | + +-------+ +--------+---+---+ +-------+ +--------+---+---+ | Given | 07/13/19 | 8.6 mg | | | | | 17 9:19 | | | | | | AM PDT | | | | +-------+ +--------+---+---+ | Given | 07/12/19 | 8.6 mg | | | | | 17 8:29 | | | | | | PM PDT | | | | +-------+ +--------+---+---+ +---+---+ | | | +---+---+ documented in this encounter
--- OUTSIDE RECORDS SUMMARY | ~2019-09-12 | XMS | Encounter Summary ---
Demographics + + + | Address | [address] | | | [place] [address] | + + + | Home Phone | | + + + | Preferred Language | Unknown | + + + | Marital Status | | + + + | Scientologist Affiliation | Unknown | + + + | Race | Unknown | + + + | Ethnic Group | Unknown | + + + Author + + + | Author | [facility] | | | and [place] | + + + | Organization | [facility] | | | and [place] | + + + | Address | Unknown | + + + | Phone | Unavailable | + + + Support + + + + + | Name | Relationship | Address | Phone | + + + + + | Sigrid Lennon | ECON | [address] | | | | | [place] [address] | | + + + + + | Valentín Saleh | ECON | [phone] | | | | | [place] [address] | | + + + + + | Roberto Carlos Lennon | LEVI | Unknown | | + + + + + Care Team Providers + +------+ + | Care Pit Manager Name | Role | Phone | + [...] Description | +--------+--------+ + + + | 08/02/ | Refill | [facility] [place] [facility] | Francois Pascal, | Medication Refill | | 2012 | | MEDICINE [place] | [address] | | | | | [address] | [address] [place], | | | | | [place] | [place] [address] | | | | | [address] | [phone] | | | | | [phone] | | | +--------+--------+ + + + [...] [place], | | | | | | [place] [address] | | | | | | [phone] | | | | | | | | +--------+---------+ + + + documented as of this encounter Visit Diagnoses Not on filedocumented in this encounter"
--- OUTSIDE RECORDS SUMMARY | ~2019-09-12 | XMS | Encounter Summary ---
Demographics + + + | Address | [address] | | | [place] [address] | + + + | Home Phone | | + + + | Preferred Language | Unknown | + + + | Marital Status | | + + + | Zoroastrianism Affiliation | Unknown | + + + | Race | Unknown | + + + | Ethnic Group | Unknown | + + + Author + + + | Author | [facility] | | | and [place] | + + + | Organization | [facility] | | | and [...] | | | | | [place] [address] | | + + + + + | Valentín Saleh | ECON | [address] | | | | | [place] [address] | | + + + + + | Roberto Carlos Lennon | LEVI | Unknown | | + + + + + Care Team Providers + +------+ + | Care Motorcycle Builder Name | Role | Phone | + +------+ + | Francois Pascal MD | PCP | | + +------+ + Reason for Visit + + + | Reason | Comments | + + + | Medication | states not taking her medications, even though she states | | Management | she does | + + + | Fall | Still experiencing fatigue | + + + Encounter Details +--------+---------+ + + + | Date | Type | Department | Care Team | Description | +--------+---------+ + + + | 10/17/ | Office | [facility] | Francois Pascal, | DM (diabetes | | 2015 | Visit | MEDICINE [address] | [address] | mellitus screen) | | | | [address] [place], | [address] [place], | (Primary Dx); DM | | | | [place] [address] | [place] [address] | (diabetes mellitus) | | | | [phone] | [phone] | (HCC); Transient | | | | | | alteration of | | | | | | awareness; Head | | | | | | contusion, initial | | | | | | encounter | +--------+---------+ + + + Social History [...] + + + | Blood Pressure | 100/54 | 10/17/2014 1:47 PM | | | | | PDT | | + + + + + | Pulse | 61 | 10/17/2014 1:47 PM | | | | | PDT | | + + + + + | Temperature | 36.1 C (96.9 F) | 10/17/2014 1:47 PM | | | | | PDT | | + + + + + | Respiratory Rate | 14 | 10/17/2014 1:47 PM | | | | | PDT | | + + + + + | Oxygen Saturation | 95% | 10/17/2014 1:47 PM | | | | | PDT | | + + + + + | Inhaled Oxygen | - | - | | | Concentration | | | | + + + + + | Weight | 71.2 kg (157 lb) | 10/17/2014 1:47 PM | | | | | PDT | | + + + + + | Height | 162.6 cm (5' 4") | 10/17/2014 1:47 PM | | | | | PDT | | + + + + + | Body Mass Index | 26.95 | 10/17/2014 1:47 PM | | | | | PDT | | + + + + + documented in this encounter Progress Notes Francois Pascal MD - 10/17/2014 2:20 PM PDTFormatting of this note might be different f rom the original. Subjective: Patient ID: Alyson Lennon is a 83 y.o. female. HPI She is getting sicker every day. Her notices that she is forgetting her diabetic s hots. Fall after the last visit, she had went to eat at [facility]. She has been fatigue and depr essed. She is drinking plenty of water. There has been no chest pain, She is sleeping a l ot. She does not feel like is getting any rest. She is SOB. Her ankles have not been more swollen. She has been in continent of urine the last month. There have been no palpitaion s of the heart. There is no fever. Head contusion with fall as noted above, The right face had a large area of swelling That was no seen at the ER, There was no LOC or Headache. It was a tripping situation. DM2 she is on lantus 120 nightly, and Novolog, 20 for B, 20-30 L and 36 for dinner. an adrian Andino (she understands the risk with this). She notices that her glucoses are high occ asionally. Rarely as high as 250 prior to a meal. In the morning is runs in the 140-160 in the morning. She is compliant with her medications, she denies polyuria, polydipsia or po lyphagia, She admits to having the right diet. She declines further dietary consult. She tries to watch her diet "with every bit she takes". CKD, She urinates normally. There is no blood in her urine, She feels as though she drink s plenty of fluids. She follows with Kemar Mcclelland. HTN, hypotension, She has not been monitoring BP. There is no chest pain SOB or ankle swe lling at this time. And she is compliant with her medications. 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) Hypertension x Hyperlipidemia Vitamin D Deficiency Gout Osteoporosis Verebral Compression Fractures Glossitis Past Surgical History: Reviewed history from 08/11/2011 and no changes required: 1997 Grafting for Coronary Artery Bypass x 3 vessels and VSD Patch Cholecystectomy 1986 Previous Inferior Vena Cava Filter OU Cateract Surgery 2007 Hiatal Hernia Repair 1984 (L) Breast Biopsy 1974 ORIF Left Ankle Unstable Trimalleolar Fracture Dislocation 03/24/2009 Family History: Reviewed history from 08/11/2011 and no changes required: Mother 71 Myocardial Infarction, possible VSD Father 50 Pneumonia Family Hx of [place]'s chorea Sister and 2 brothers: CAD, Airam's Disease to [place] - with 2 Healthy Children No kidney disease in family. Social History: Reviewed history from 08/11/2011 and no changes required: Born in [facility] for [facility] years. and Remarried 2 sons local. Patient has never smoked. Alcohol Use - no Exercise: None Caffeine: Decaf only Living Situation: Lives with spuse Review of Systems Constitutional: no fever, No appetite change, some fatigue. No energy. HEENT: Neg ear pain, No nosebleeds,no rhinorrhea,no [...] no joint swelling and No ar thralgias. No joint pain Skin: Neg for color change,no rash and No wounds, no Strange moles Neurological: Neg for dizziness, no Weakness,no light-headedness, no numbness and no headaches. Hematological: Neg for adenopathy. Does not bruise/bleed easily. Psychiatric/Behavioral: Neg for suicidal ideas,no confusion and no agitation. no Depression, no anxiety,no sleep problems Objective: Physical Exam Slow to answer questions. Heent, WNL, No carotid bruit Chest CTAB Heart distant heart sounds. Abd S,NT,ND,BS+ Ext, no CCor E Neuro Non-focal Lymph, no cervical, axillary, inguinal adenopathy Musculoskeletal, no gross deformity or loss or range of motion Skin, no gross lesions Assessment: 1. DM (diabetes mellitus screen) 2. DM (diabetes mellitus) (HCC) POCT Glucose 3. Transient alteration of awareness 4. Head contusion, initial encounter Plan: I think she could have a subdural hematoma that did not get diagnosed with the fall a few w eeks ago. Because of her very distant HS and low blood pressure I also think she needs and e cho. I want her to be seen at the ER. Otherwise continue current medical regimen. documented in this encounter Plan of Treatment +--------+---------+ + + + | Date | Type | Specialty | Care Team | Description | +--------+---------+ + + + | 12/06/ | Office | Cardiology | Stephenie Paul, | | | 2019 | Visit | | MD Rojas [facility] | | | | | | [place], | | | | | | [place] [address] | | | | | | [phone] | | | | | | | | +--------+---------+ + + + documented as of this encounter Procedures + +--------+ + + + | Procedure Name | Priori | Date/Time | Associated Diagnosis | Comments | | | ty | | | | + +--------+ + + + | POCT GLUCOSE | Routin | 10/17/2014 | DM (diabetes | Results for this | | | e | 2:37 PM | mellitus) ([facility]) | procedure are in the | | | | PDT | | results section. | + +--------+ + + + documented in this encounter Results POCT Glucose (10/17/2014 2:37 PM PDT) + +---------+ + + + | Component | Value | Ref Range | Performed | Pathologist | | | | | At | Signature | + +---------+ + + + | Glucose, WB | 214 (A) | 65 - 99 mg/dL | | | + +---------+ + + + + + | Specimen | + + | Blood specimen | | (specimen) | + + documented in this encounter Visit Diagnoses + + | Diagnosis | + + | DM (diabetes mellitus screen) - Primary Screening for diabetes mellitus | + + | DM (diabetes mellitus) ([facility]) Type II or unspecified type diabetes mellitus without | | mention of complication, not stated as uncontrolled | + + | Transient alteration of awareness | + + | Head contusion, initial encounter | + + documented in this encounter
--- OUTSIDE RECORDS SUMMARY | ~2019-09-12 | XMS | Encounter Summary ---
Demographics + + + | Address | [address] | | | [place] [address] | + + + | Home Phone | | + + + | Preferred Language | Unknown | + + + | Marital Status | | + + + | Christianity Affiliation | Unknown | + + + | Race | Unknown | + + + | Ethnic Group | Unknown | + + + Author + + + | Author | [facility] | | | and [place] | + + + | Organization | [facility] | | | and [...] | | | | | [place] [address] | | + + + + + | Valentín Saleh | ECON | [address] | | | | | [place] [address] | | + + + + + | Roberto Carlos Lennon | LEVI | Unknown | | + + + + + Care Team Providers + +------+ + | Care Health Coordinator Name | Role | Phone | + +------+ + | Francois Pasacl MD | PCP | | + +------+ + Reason for Visit + + + | Reason | Comments | + + + | Medication Refill | | + + + Encounter Details +--------+--------+ + + + | Date | Type | Department | Care Team | Description | +--------+--------+ + + + | 10/29/ | Refill | [facility] [place] [facility] | Francois Pascal, | Medication Refill | | 2015 | | MEDICINE [facility] [address] | [address] | | | | | [address] [place], | [address] [place] [place], | | | | | [place] [address] | [place] [address] | | | | | [phone] | [phone] | | | | | | | | +--------+--------+ + + + [...] [place], | | | | | | [place] [address] | | | | | | [phone] | | | | | | | | +--------+---------+ + + + documented as of this encounter Visit Diagnoses Not on filedocumented in this encounter"
--- OUTSIDE RECORDS SUMMARY | ~2019-09-12 | XMS | Encounter Summary ---
Demographics + + + | Address | [address] | | | [place] [address] | + + + | Home Phone | | + + + | Preferred Language | Unknown | + + + | Marital Status | | + + + | Jew Affiliation | Unknown | + + + | Race | Unknown | + + + | Ethnic Group | Unknown | + + + Author + + + | Author | [facility] | | | and [place] | + + + | Organization | [facility] | | | and [place] | + + + | Address | Unknown | + + + | Phone | Unavailable | + + + Support + + + + + | Name | Relationship | Address | Phone | + + + + + | Sigrid Lennon | ECON | [address] | | | | | [place] [address] | | + + + + + | Valentín Saleh | ECON | [address] | | | | | [place] [address] | | + + + + + | Roberto Carlos Lennon | LEVI | Unknown | | + + + + + Care Team Providers + +------+ + | Care Hide Mill Man Name | Role | Phone | + +------+ + | Francois Pascal MD | PCP | | + +------+ + Reason for Visit + + + | Reason | Comments | + + + | Follow-up | 3 mo. | + + + Encounter Details +--------+---------+ + + + | Date | Type | Department | Care Team | Description | +--------+---------+ + + + | 12/26/ | Office | [facility] | Francois Pascal, | OSTEOARTHRITIS, | | 2011 | Visit | MEDICINE [place] | [address] | ANKLE, LEFT; DM | | | | [address] | [address] [address], | (diabetes mellitus) | | | | [place], [place] | [place] [address] | ([facility]); Gout, | | | | [address] | [phone] | unspecified; | | | | [phone] | | HYPERTENSION NEC; | | | | | | Hyperlipidemia | +--------+---------+ + + + Social History + +-------+ +--------+------+ | Tobacco Use | Types | Packs/Day | Years | Date | | | | | Used | | + +-------+ +--------+------+ | Never Smoker | | | | | + +-------+ +--------+------+ + + +---------+ + | Alcohol Use [...] + + + | Blood Pressure | 118/74 | 12/27/2011 2:08 PM | | | | | PDT | | + + + + + | Pulse | 64 | 12/27/2011 2:08 PM | | | | | PDT | | + + + + + | Temperature | 36.3 C (97.3 F) | 12/27/2011 2:08 PM | | | | | PDT | | + + + + + | Respiratory Rate | 16 | 12/27/2011 2:08 PM | | | | | PDT | | + + + + + | Oxygen Saturation | - | - | | + + + + + | Inhaled Oxygen | - | - | | | Concentration | | | | + + + + + | Weight | 77.6 kg (171 lb) | 12/27/2011 2:08 PM | | | | | PDT | | + + + + + | Height | 158.8 cm (5' 2.5") | 12/27/2011 2:08 PM | | | | | PDT | | + + + + + | Body Mass Index | 30.78 | 12/27/2011 2:08 PM | | | | | PDT | | + + + + + documented in this encounter Progress Notes Francois Pascal MD - 12/27/2011 2:29 PM PDTFormatting of this note might be different f rom the original. Subjective: Patient ID: Alyson Lennon is a 80 y.o. female. HPI Left leg arthritis still some intermittent soreness, better with her brace. The ankle f eels better in the better weather. She wears her support once in a while which helps quite a bit. She is not taking anything for the ankle. DM2 she is on lantus and novolog, and Januvia. She notices that her glucoses are high occ asionally. Rarely as high as 300 after a meal. In the morning is runs in the 140-150's. S he is compliant with her medications, she denies polyuria, polydipsia or polyphagia, She ad mits to having the right diet. lantus 100 to 105 u qhs, novolog 15-19 in am, 20-27 prior to lunch and 30-34 prior to dinner. She declines further dietary consult. Gout, takes her allopurinol daily two times daily, She takes colchicine on occasion. She had a bout a month ago right knee and left ankle. This is unchanged from previous. HTN There is no chest pain SOB or ankle swelling at this time. And she is compliant with h er medications. Hyperlipidemia, she is on simvistatin, there are no muscle aches or weakness. She is com pliant with the medication. Past Medical History: Reviewed history from 06/24/2011 [...] Airam's chorea Sister and 2 brothers: CAD, [place]'s Disease to [place] - with 2 Healthy Children No kidney disease in family. Social History: Reviewed history from 08/11/2011 and no changes required: Born in [facility] for [facility] years. and Remarried 2 sons local. Patient has never smoked. Alcohol Use - no Exercise: None Caffeine: Decaf only Living Situation: Lives with spuse Review of Systems Review of Systems Constitutional: no fever, No appetite change, no fatigue. HENT: Negative for ear pain, No nosebleeds,no rhinorrhea,no trouble swallowing and no sinus pressure. mouth sore and irritated. Eyes: Negative for pain and no visual disturbance. Respiratory: Negative for cough, no chest tightness, no shortness of breath no wheezing. Cardiovascular: Negative for chest pain, no palpitations and no leg swelling. Gastrointestinal: Negative for nausea,no vomiting,no diarrhea,no constipation no abdominal distention. No Belly pain, no black and no bloody stools, no excessive gas Genitourinary: Negative for urgency, no frequency, no decreased urine volume no difficulty urinating. No Bloody urine Musculoskeletal: Negative for myalgias, no back pain, no joint swelling and No arthralg ias. Skin: Negative for color change,no rash and No wounds, no Strange moles Neurological: Negative for dizziness, no Weakness,no light-headedness, no numbness and no headaches. Hematological: Negative for adenopathy. Does not bruise/bleed easily. Psychiatric/Behavioral: Negative for suicidal ideas,no confusion and no agitation. no Depression, no anxiety,no sleep problems ' Objective: Physical Exam Heent, WNL, No carotid bruit Chest CTAB Heart RR&R /s M Abd S,NT,ND,BS+ Ext trace E, Splint AFO LLE. Neuro Non-focal Lymph, no cervical, axillary, inguinal adenopathy Musculoskeletal, no gross deformity or loss or range of motion Skin, no gross lesions Assessment: 1. OSTEOARTHRITIS, ANKLE, LEFT 2. DM (diabetes mellitus) 3. Gout, unspecified 4. HYPERTENSION NEC 5. Hyperlipidemia Plan: HBA1C is a little high. Lets increase the lantus to 110 qhs. Repeat HBA1C 3 months. documented in this encounter Plan of Treatment +--------+---------+ + + + | Date | Type | Specialty | Care Team | Description | +--------+---------+ + + + | 12/06/ | Office | Cardiology | Stephenie Paul, | | | 2019 | Visit | | MD Bob Sheehan | | | | | | [place], | | | | | | [place] [address] | | | | | | [phone] | | | | | | | | +--------+---------+ + + + documented as of this encounter Results Hemoglobin A1c (03/14/2012 9:32 AM PST) + + + + + + | Component | Value | Ref Range | Performed | Pathologist | | | | | At | Signature | + + + + + + | Hemoglobin | 8.1 (H)Comment: | 4.3 - 5.8 % | [facility] | | | A1c | DIABETIC PATIENT RANGES: | | [facility] | | | | 6.2-7.0% = [facility] | | MEDICAL | | | | Controlled | | CENTER - | | | | | | LABORATORY | | | | 7.0-9.0% = | | | | | | Intermediate | | | | | | | | | | | | >9.0% = | | | | | | Poorly Controlled | | | | + + + + + + + + | Specimen | + + | Blood specimen | | (specimen) | + + + + + + + | Performing | Address | City/State/Zipcode | Phone Number | | Organization | | | | + + + + + | [facility] | [address] | [place], [place] | [phone] | | [facility] | | [address] | | | - LABORATORY | | | | + + + + + | [facility] | [address] | [place], [place] | | | [facility] | | [address] | | | - LABORATORY | | | | + + + + + documented in this encounter Visit Diagnoses + + | Diagnosis | + + | OSTEOARTHRITIS, ANKLE, LEFT Osteoarthrosis, unspecified whether generalized or | | localized, ankle and foot | + + | DM (diabetes mellitus) ([facility]) Type II or unspecified type diabetes mellitus without | | mention of complication, not stated as uncontrolled | + + | Gout, unspecified | + + | HYPERTENSION NEC Complications affecting other specified body systems, hypertension | + + | Hyperlipidemia Other and unspecified hyperlipidemia | + + documented in this encounter
--- OUTSIDE RECORDS SUMMARY | ~2019-09-12 | XMS | Encounter Summary ---
Demographics + + + | Address | [address] | | | [place] [address] | + + + | Home Phone | | + + + | Preferred Language | Unknown | + + + | Marital Status | | + + + | Confucianism Affiliation | Unknown | + + + | Race | Unknown | + + + | Ethnic Group | Unknown | + + + Author + + + | Author | [facility] | | | and [place] | + + + | Organization | [facility] | | | and [...] | | | | | [place] [address] | | + + + + + | Valentín Saleh | ECON | [address] | | | | | [place] [address] | | + + + + + | Roberto Carlos Lennon | LVEI | Unknown | | + + + + + Care Team Providers + +------+ + | Care Java Analyst Name | Role | Phone | + +------+ + | Francois Pascal MD | PCP | | + +------+ + Reason for Visit + + + | Reason | Comments | + + + | Diabetes | | + + + Encounter Details +--------+---------+ + + + | Date | Type | Department | Care Team | Description | +--------+---------+ + + + | 05/19/ | Office | [facility] | Francois Pascal, | CHRONIC KIDNEY | | 2017 | Visit | MEDICINE [address] | [address] | DISEASE STAGE III | | | | [address] [place], | [address], | (MODERATE) ([place] | | | | [place] [address] | [place] [address] | Dx); Diabetes | | | | [phone] | [phone] | mellitus due to | | | | | | underlying condition | | | | | | with hyperglycemia, | | | | | | with long-term | | | | | | current use of | | | | | | insulin (HCC); | | | | | | Essential | | | | | | hypertension with | | | | | | goal blood pressure | | | | | | less than 130/80; | | | | | | Primary | | | | | | osteoarthritis of | | | | | | left ankle | +--------+---------+ + + + Social History [...] + + + | Blood Pressure | 140/90 | 05/19/2016 1:17 PM | | | | | PDT | | + + + + + | Pulse | 70 | 05/19/2016 1:17 PM | | | | | PDT | | + + + + + | Temperature | 36.4 C (97.6 F) | 05/19/2016 1:17 PM | | | | | PDT | | + + + + + | Respiratory Rate | 16 | 05/19/2016 1:17 PM | | | | | PDT | | + + + + + | Oxygen Saturation | 97% | 05/19/2016 1:17 PM | | | | | PDT | | + + + + + | Inhaled Oxygen | - | - | | | Concentration | | | | + + + + + | Weight | 71.7 kg (158 lb) | 05/19/2016 1:17 PM | | | | | PDT | | + + + + + | Height | - | - | | + + + + + | Body Mass Index | 28.9 | 02/17/2016 1:01 PM | | | | | PST | | + + + + + documented in this encounter Progress Notes Francois Pascal MD - 05/19/2016 1:24 PM PDTFormatting of this note might be different f rom the original. Subjective: Patient ID: Alyson Lennon is a 85 y.o. female. HPI Chronic L ankle OA, Followed by Dr Valero with recent injection, There was miminal improvement , She is considering and ankle joint replacement. She is now seeing Dr Ochoa, [place] [facility]. She declines a pain medication for this. She takes a tylenol sometime. She is seeing him tomorrow DM2, with neuropathy, There is no foot ulcer or sore. There is no P,P or P. Lantus 100 -110 QHS, novolog 35 tid CKD, she drinks 6 glasses of water daily, She avoids all NSAIDS except for tylenol. She follows with Kemar Mcclelland For this. This is unchanged. HTN, There is no recent chest pain SOB, she has her baseline ankle swelling is unchanged. She 110/80 on average at home. She declines further colonoscopy in the future. This is unchanged. 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 Social History: Born in [facility] for 46 years. and Remarried 2 sons [...] motion Skin, no gross lesions Assessment: 1. CHRONIC KIDNEY DISEASE STAGE III (MODERATE) 2. Diabetes mellitus due to underlying condition with hyperglycemia, with long-term current use of insulin (HCC) 3. Essential hypertension with goal blood pressure less than 130/80 4. Primary osteoarthritis of left ankle Plan: She looks and feels at baseline. Her labs are due. I am excited she is looking into an ankle replacement. RTc 3 months Otherwise continue current medical regimen. documented in [...] [place], | | | | | | [place] [address] | | | | | | [phone] | | | | | | | | +--------+---------+ + + + documented as of this encounter Visit Diagnoses + + | Diagnosis | + + | CHRONIC KIDNEY DISEASE STAGE III (MODERATE) - Primary Chronic kidney disease, Stage | | III (moderate) | + + | Diabetes mellitus due to underlying condition with hyperglycemia, with long-term | | current use of insulin (HCC) | + + | Essential hypertension with goal blood pressure less than 130/80 | + + | Primary osteoarthritis of left ankle | + + documented in this encounter"
--- OUTSIDE RECORDS SUMMARY | ~2019-09-12 | XMS | Encounter Summary ---
Demographics + + + | Address | [address] | | | [place] [address] | + + + | Home Phone | | + + + | Preferred Language | Unknown | + + + | Marital Status | | + + + | Baptist Affiliation | Unknown | + + + | Race | Unknown | + + + | Ethnic Group | Unknown | + + + Author + + + | Author | [facility] | | | and [place] | + + + | Organization | [facility] | | | and [place] | + + + | Address | Unknown | + + + | Phone | Unavailable | + + + Support + + + + + | Name | Relationship | Address | Phone | + + + + + | Sigrid Lennon | ECON | [address] | | | | | [place] [address] | | + + + + + | Valentín Saleh | ECON | [phone] | | | | | [place] [address] | | + + + + + | Roberto Carlos Lennon | LEVI | [place] | | + + + + + Care Team Providers + +------+ + | Care Senior Planner Name | Role | Phone | + +------+ + PCP | Unavailable | + +------+ + Encounter Details +--------+ + + + + | Date | Type | Department | Care Team | Description | +--------+ + + + + | 09/30/ | Hospital | [facility] | | | | 2000 | Encounter | MED CTR XRAY [address] | | | | | | [place] | | | | | | [place] [address] | | | | | | [phone] | | | +--------+ + + + [...] | | | | | | [place] [address] | | | | | | [phone] | | | | | | | | +--------+---------+ + + + documented as of this encounter Visit Diagnoses Not on filedocumented in this encounter"
--- OUTSIDE RECORDS SUMMARY | ~2019-09-12 | XMS | Encounter Summary ---
Demographics + + + | Address | [address] | | | [place] [address] | + + + | Home Phone | | + + + | Preferred Language | Unknown | + + + | Marital Status | | + + + | Jewish Affiliation | Unknown | + + + | Race | Unknown | + + + | Ethnic Group | Unknown | + + + Author + + + | Author | [facility] | | | and [place] | + + + | Organization | [facility] | | | and [place] | + + + | Address | Unknown | + + + | Phone | Unavailable | + + + Support + + + + + | Name | Relationship | Address | Phone | + + + + + | Sigrid Lennon | ECON | [address] | | | | | [place] [address] | | + + + + + | Valentín Saleh | ECON | [address] | | | | | [place] [address] | | + + + + + | Roberto Carlos Lennon | LEVI | [place] | | + + + + + Care Team Providers + +------+ + | Care Coal Washer Tender Name | Role | Phone | + +------+ + PCP | Unavailable | + +------+ + Encounter Details +--------+ + + + + | Date | Type | Department | Care Team | Description | +--------+ + + + + | 06/18/ | Hospital | [facility] | | | | 1997 | Encounter | MED CTR GENERIC OP | | | | | | CONV DEPT [address] | | | | | | [place], | | | | | | [place] [address] | | | | | | [phone] | | | +--------+ + + + [...] [place], | | | | | | [place] [address] | | | | | | [phone] | | | | | | | | +--------+---------+ + + + documented as of this encounter Visit Diagnoses Not on filedocumented in this encounter"
--- OUTSIDE RECORDS SUMMARY | ~2019-09-12 | XMS | Encounter Summary ---
Demographics + + + | Address | [address] | | | [place] [address] | + + + | Home Phone | | + + + | Preferred Language | Unknown | + + + | Marital Status | | + + + | Catholic Affiliation | Unknown | + + + | Race | Unknown | + + + | Ethnic Group | Unknown | + + + Author + + + | Author | [facility] | | | and [place] | + + + | Organization | [facility] | | | and [place] | + + + | Address | Unknown | + + + | Phone | Unavailable | + + + Support + + + + + | Name | Relationship | Address | Phone | + + + + + | Sigrid Lennon | ECON | [address] | | | | | [place] [address] | | + + + + + | Valentín Saleh | ECON | [address] | | | | | [place] [address] | | + + + + + | Roberto Carlos Lennon | LEVI | Unknown | | + + + + + Care Team Providers + +------+ + | Care Tax Investigator Name | Role | Phone | + +------+ + | Francois Pascal MD | PCP | | + +------+ + Encounter Details +--------+ + + + + | Date | Type | Department | Care Team | Description | +--------+ + + + + | 06/02/ | [facility] | [facility] | Francois Capone, | | | 2016 | Encounter | MED CTR LABORATORY | SUHAS Martinez has | | | | | [address] [place] | retired. | | | | | [place] | | | | | | [address] | | | | | | [phone] | | | +--------+ + + + [...] | 08/11/19 | | | tablet | Sundays | | | 12 | 6 | [...] | | | | | | hyperglycemia ([facility]) | | | | | | [...] | | | | | | mellitus) ([facility]) | | | | | | + + + +---------+ + + | lisinopril | | | 0 | 03/04/20 | | | (PRINIVIL,ZESTRIL) | | | | 15 | 6 | | 40 MG tablet | | | | | | [...] [place], | | | | | | [place] [address] | | | | | | [phone] | | | | | | | | +--------+---------+ + + + documented as of this encounter Visit Diagnoses Not on filedocumented in this encounter"
--- OUTSIDE RECORDS SUMMARY | ~2019-09-12 | XMS | Encounter Summary ---
Demographics + + + | Address | [address] | | | [place] [address] | + + + | Home Phone | | + + + | Preferred Language | Unknown | + + + | Marital Status | | + + + | Shinto Affiliation | Unknown | + + + | Race | Unknown | + + + | Ethnic Group | Unknown | + + + Author + + + | Author | [facility] | | | and [place] | + + + | Organization | [facility] | | | and [place] | + + + | Address | Unknown | + + + | Phone | Unavailable | + + + Support + + + + + | Name | Relationship | Address | Phone | + + + + + | Sigrid Lennon | ECON | [address] | | | | | [place] [address] | | + + + + + | Valentín Saleh | ECON | [address] | | | | | [place] [address] | | + + + + + | Roberto Carlos Lennon | LEVI | [place] | | + + + + + Care Team Providers + +------+ + | Care Coil Winder Strap Name | Role | Phone | + +------+ + PCP | Unavailable | + +------+ + Encounter Details +--------+ + + + + | Date | Type | Department | Care Team | Description | +--------+ + + + + | 10/16/ | Hospital | [facility] | Francois Pascal, | | | 2009 | Encounter | MED CTR LABORATORY | [address] | | | | | [address] [place] | [address] [place], | | | | | [place] | [place] [address] | | | | | [address] | [phone] | | | | | [phone] | | | +--------+ + + + [...] | 2019 | Visit | | [address] | | | | | | [place], | | | | | | [place] [address] | | | | | | [phone] | | | | | | | | +--------+---------+ + + + documented as of this encounter Visit Diagnoses Not on filedocumented in this encounter"
--- OUTSIDE RECORDS SUMMARY | ~2019-09-12 | XMS | Encounter Summary ---
Demographics + + + | Address | [address] | | | [place] [address] | + + + | Home Phone | | + + + | Preferred Language | Unknown | + + + | Marital Status | | + + + | Orthodox Affiliation | Unknown | + + + | Race | Unknown | + + + | Ethnic Group | Unknown | + + + Author + + + | Author | [facility] | | | and [place] | + + + | Organization | [facility] | | [...] | | | | | [place] [address] | | + + + + + | Valentín Saleh | ECON | [address] | | | | | [place] [address] | | + + + + + | Roberto Carlos Lennon | LEVI | [place] | | + + + + + Care Team Providers + +------+ + | Care Box Finisher Name | Role | Phone | + +------+ + PCP | Unavailable | + +------+ + Encounter Details +--------+ + + + + | Date | Type | Department | Care Team | Description | +--------+ + + + + | 10/08/ | Hospital | [facility] | | | | 2002 | Encounter | MED CTR XRAY [address] | | | | | | [place] | | | | | | [place] [address] | | | | | | [phone] | | | +--------+ + + + [...] | | | | | | [place] [address] | | | | | | [phone] | | | | | | | | +--------+---------+ + + + documented as of this encounter Visit Diagnoses Not on filedocumented in this encounter"
--- OUTSIDE RECORDS SUMMARY | ~2019-09-12 | XMS | Encounter Summary ---
Demographics + + + | Address | [address] | | | [place] [address] | + + + | Home Phone | | + + + | Preferred Language | Unknown | + + + | Marital Status | | + + + | Restorationist Affiliation | Unknown | + + + | Race | Unknown | + + + | Ethnic Group | Unknown | + + + Author + + + | Author | [facility] [place] | | | and [place] | + + + | Organization | [facility] [...] | | | | | [place] [address] | | + + + + + | Valentín Saleh | ECON | [address] | | | | | [place] [address] | | + + + + + | Roberto Carlos Lennon | LEVI | Unknown | | + + + + + Care Team Providers + +------+ + | Care Sanforizing Machine Operator Name | Role | Phone | + +------+ + | Francois Pascal MD | PCP | | + +------+ + Reason for Visit + + + | Reason | Comments | + + + | Chronic Kidney | Stage 3 | | Disease | | + + + Evaluate & Treat (Routine) +--------+--------+ + + + + | Status | Reason | Specialty | Diagnoses / | Referred By | Referred To | | | | | Procedures | Contact | Contact | +--------+--------+ + + + + | Closed | | Nurse | Diagnoses | Naida, | | | | | Practitioner | Unspecified | Francois Tello MD | Katrina, | | | | / Nephrology | essential | [address] | [address] [address], | | | | | hypertension | [address] | FAMILY CONSUMER 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 [address] | | | | | Chronic | [place] | [address] | | | | | kidney | [place] | [address] | | | | | disease, | [address] | [place], | | | | | stage III | Phone: | [place] [address] | | | | | (moderate) | [phone] | Phone: | | | | | (HCC) Type | Fax: | [phone] | | | | | II or | [phone] | Fax: | | | | | unspecified | | [phone] | | | | | type | | | | | | | diabetes | | | | | | | mellitus | | | | | | | with renal | | | | | | | manifestatio | | | | | | | ns, | | | | | | | uncontrolled | | | | | | | ([phone]) | | | | | | | (HCC) | | | | | | | Procedures | | | | | | | [place] OFFICE | | | | | | | OUTPATIENT | | | | | | | VISIT 25 | | | | | | | MINUTES | | | +--------+--------+ + + + + Encounter Details +--------+---------+ + + + | Date | Type | Department | Care Team | Description | +--------+---------+ + + + | 07/20/ | Office | [facility] | [place], | CHRONIC KIDNEY | | 2016 | Visit | NEPHROLOGY [address] | [address] | DISEASE STAGE III | | | | [address] | [address] | (MODERATE) (Primary | | | | [place], [place] | [address] | Dx); Hypertension, | | | | [address] | [address] | renal disease, stage | | | | [phone] | | 1-4 or unspecified | | | | | | chronic kidney | | | | | | disease; DM type 2, | | | | | | uncontrolled, with | | | | | | renal complications | | | | | | ([facility]); Vitamin D | | | | | | deficiency | +--------+---------+ + + + Social History [...] + + + | Blood Pressure | 126/62 | 07/21/2015 12:58 PM | | | | | PDT | | + + + + + | Pulse | 63 | 07/21/2015 12:58 PM | | | | | PDT | | + + + + + | Temperature | - | - | | + + + + + | Respiratory Rate | - | - | | + + + + + | Oxygen Saturation | 96% | 07/21/2015 12:58 PM | | | | | PDT | | + + + + + | Inhaled Oxygen | - | - | | | Concentration | | | | + + + + + | Weight | 69.8 kg (153 lb 14.4 | 07/21/2015 12:58 PM | | | | oz) | PDT | | + + + + + | Height | - | - | | + + + + + | Body Mass Index | 26.42 | 07/10/2015 11:41 AM | | | | | PDT | | + + + + + documented in this encounter Patient Instructions Patient Instructions Kemar Herndon ARNP - 07/21/2015 1:17 PM PDTBlood pressure i s better. Kidney function is back to your baseline. Continue current medications. Continue to avoid taking NSAIDs. These are some commonly used NSAIDs: ibuprofen (Motrin,Adv il), naproxen (Aleve, Naprosyn), celecoxib (Celebrex), indomethacin (Indocin), meloxicam (Mo bic). documented in this encounter Progress Notes Kemar Herndon ARNP - 07/21/2015 12:52 PM PDTFormatting of this note might be diff erent from the original. Nephrology Follow-up Visit Visit date: 07/21/2015 Primary care provider: Francois Pascal MD Follow-up type: 1 month HPI: Alyson Lennon is a 84 y.o. female with CKD, following up due to low normal blood pressure and decline in renal function. 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 Corado -serum creatinine has fluctuated from 1.1-1.4 mg/dl since 2010; last visit was at 1.7 mg/dl , now back to baseline. Patient reports that her blood pressure has been fine at home, less than 140 mmHg systolic. No lightheadedness or falls. She recently had a steroid joint injection and noticed that he r blood sugars were elevated for a few days after. Now back to normal. ROS: Denies anorexia, fatigue, chest pain, dyspnea, orthopnea, edema, nausea, vomiting, dys uria, hematuria, urinary frequency. PMH: Patient Active Problem List Diagnosis Date Noted DM (diabetes mellitus) ([facility]) 12/27/2011 Priority: High Glossitis Priority: High Hyperlipidemia Priority: High CHRONIC KIDNEY DISEASE STAGE III (MODERATE) Priority: High HTN (hypertension) 05/25/2010 Priority: High OSTEOARTHRITIS, ANKLE, LEFT 01/21/2010 Priority: High Gout, unspecified 01/21/2010 Priority: Medium Note Last Updated: 12/07/2014 ICD-10 Record update Unsteady 12/24/2014 Posture imbalance 12/24/2014 Impaired functional mobility, balance, gait, and endurance 12/24/2014 Bilateral carotid artery stenosis 12/09/2014 Cystitis 12/09/2014 SOB (shortness of breath) 11/25/2014 Note Last Updated: 03/20/2015 Echocardiogram, 11/25/2014 shows Normal LV size and systolic function with LVEF 73%, mild aortic and mitral insufficiency, mild biatrial enlargement, grade 1 LV diastolic dysfunction , no significant changes compared with patient's prior study of 2008. 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 History of an inferior wall myocardial infarction status post CABG x3 in 1996. An exercise myoview stress test in 2002 revealed a medium-sized scar of the anteroseptal re gion. LVEF by gated SPECT was 56% CONGESTIVE HEART FAILURE DEEP VENOUS THROMBOPHLEBITIS Note Last Updated: 12/07/2014 ICD-10 Record update ARTHRITIS, CHRONIC 09/28/2011 AMI - ANTEROSEPTAL 199408/09/2011 VSD - 199408/09/2011 CLOSURE VENTRICULAR SEPTAL DEFECT - 199408/09/2011 FATIGUE 05/24/2011 VIRAL URI 05/24/2011 HYPERTRIGLYCERIDEMIA 12/24/2010 RENAL INSUFFICIENCY 01/21/2010 Outpatient Prescriptions Marked as Taking for the 07/21/15 encounter (Office Visit) with LAURO Kern Medication Sig Dispense Refill allopurinol (ZYLOPRIM) 100 mg tablet TAKE ONE TABLET BY MOUTH TWICE A DAY (Patient antonio regalado differently: Reports taking as needed) 180 tablet 2 amLODIPine (NORVASC) 5 mg tablet TAKE ONE TABLET BY MOUTH EVERY DAY 90 tablet 3 aspirin (ASPIRIN EC) 81 MG EC tablet Take2 tablets by mouth Tuesday thru Tuesday and 32 5 mg on Tuesday aspirin 325 mg tablet Take 1 by mouth on Sundays Calcium Carbonate-Vitamin D 600-200 MG-UNIT TABS Take 2 tablets by mouth daily Cinnamon 500 MG CAPS Take 1 capsule by mouth 2 times daily. colchicine 0.6 mg tablet 1-2 tablets by mouth as needed fluocinonide (LIDEX) 0.05% cream as needed. folic acid 1 mg tablet TAKE ONE TABLET BY MOUTH EVERY DAY 90 tablet 1 furosemide (LASIX) 40 mg tablet TAKE ONE TABLET BY MOUTH EVERY DAY 90 tablet 3 insulin aspart (NOVOLOG) 100 units/mL injection 33 units SQ TID prior to meals 20 mL 3 JANUVIA 100 MG tablet TAKE ONE TABLET BY MOUTH EVERY DAY 90 tablet 1 LANTUS 100 UNIT/ML injection (vial) INJECT 120 UNITS AT BEDTIME 50 mL 6 lisinopril (PRINIVIL, ZESTRIL) 20 mg tablet 1 tablet Daily. 30 tablet 3 methotrexate 2.5 mg tablet TAKE 5 TABLETS BY MOUTH ONCE WEEKLY 20 tablet 1 metoprolol succinate (TOPROL-XL) 200 mg ER tablet TAKE ONE TABLET BY MOUTH EVERY DAY 90 tablet 3 multivitamin (THERAGRAN) per tablet Take 1 by mouth daily niacin (NIASPAN) 500 mg CR tablet TAKE ONE TABLET BY MOUTH EVERY DAY 30 tablet 6 simvastatin (ZOCOR) 40 mg tablet TAKE ONE-HALF TABLET BY MOUTH EVERY DAY 45 tablet 3 Allergies Allergen Reactions Codeine Sulfate Nausea And Vomiting Darvon Nausea Only Estrogens Patient can't remember Pneumococcal Vaccines Other (See Comments) Thinks it was a Prevnar, arm became red/sore/swollen Physical Exam: BP 126/62 mmHg | Pulse 63 | Wt 69.809 kg (153 lb 14.4 oz) | SpO2 96% Constitutional: Appears well-developed and well-nourished. No distress. ENT: Oropharynx is clear and oral mucosa is moist. Cardiovascular: Normal rate, regular rhythm and normal heart sounds. 2/6 systolic murmur, no gallop and no friction rub. No JVD. Trace LE edema, compression stockings in place. Lungs: Respiratory effort normal and breath sounds normal. No crackles or wheezes. Abdominal: Soft. Bowel sounds are present. No distension or tenderness. Musculoskeletal: No joint swelling. No muscle tenderness. Skin: Skin is warm. No rash over extremities. Neurological: Alert. Memory intact. Reviewed labs with patient. Office Visit on 07/21/2015 Component Date Value Ref Range Status POC COLOR UA 07/21/2015 Yellow Yellow, Light Yellow Final POC CLARITY UA 07/21/2015 Clear Final POC GLUCOSE UA 07/21/2015 Negative Negative Final POC BILIRUBIN UA 07/21/2015 Negative Negative Final POC KETONES UA 07/21/2015 Negative Negative, 100 mg/dL Final POC SPECIFIC GRAVITY UA 07/21/2015 1.015 1.001 - 1.030 Final POC BLOOD UA 07/21/2015 Negative Negative Final POC PH UA 07/21/2015 5.0 5.0, 6.0, 7.0, 8.0, 5.5, 6.5, 7.5 Final POC PROTEIN UA 07/21/2015 Negative Negative Final POC UROBILINOGEN UA 07/21/2015 0.2 0.2, Negative, Normal, < 0.2 mg/dL, 1 mg/dL, < 0.2 E.U./dl, 1.0 E.U./dL, 0.2 mg/dL Final POC NITRITE UA 07/21/2015 Negative Negative Final POC LEUKOCYTE ESTERASE UA 07/21/2015 Negative Negative Final Hospital Outpatient Visit on 07/17/2015 Component Date Value Ref Range Status WBC 07/17/2015 12.7* 4.0-11.0 K/uL Final RBC 07/17/2015 3.98 3.70-5.20 M/uL Final Hgb 07/17/2015 13.3 11.5-16.0 g/dL Final Hct 07/17/2015 39.9 34.0-47.0 % Final MCV 07/17/2015 100.2 83.0-101.0 fL Final MCH 07/17/2015 33.4 28.0-35.0 pg Final MCHC 07/17/2015 33.3 32.0-36.0 g/dL Final RDW-CV 07/17/2015 13.6 <15.0 % Final Platelet Count 07/17/2015 234 140-440 K/uL Final MPV 07/17/2015 8.2 Final % Neutrophils 07/17/2015 70.5 45.0-82.0 % Final % Lymphocytes 07/17/2015 18.7* 20.0-45.0 % Final % Monocytes 07/17/2015 10.7 4.0-12.0 % Final % Eosinophils 07/17/2015 0.0 0.0-5.0 % Final % Basophils 07/17/2015 0.1 0.0-1.0 % Final Absolute Neutrophils 07/17/2015 8.90* 1.80-8.50 K/uL Final Absolute Lymphocytes 07/17/2015 2.40 0.60-3.20 K/uL Final Absolute Monocytes 07/17/2015 1.40* 0.00-1.00 K/uL Final Absolute Eosinophils 07/17/2015 0.00 0.00-0.40 K/uL Final Absolute Basophils 07/17/2015 0.00 0.00-0.10 K/uL Final NA 07/17/2015 132* 136-149 mmol/L Final K 07/17/2015 4.1 3.5-5.1 mmol/L Final CL 07/17/2015 96* 98-109 mmol/L Final CO2 07/17/2015 29 24-31 mmol/L Final ANION GAP 07/17/2015 7 3-16 mmol/L Final GLUCOSE 07/17/2015 325* 70-109 mg/dL Final BUN 07/17/2015 31* 7-18 mg/dL Final Creatinine, Serum/Plasma 07/17/2015 1.21 0.60-1.30 mg/dL Final eGFR if not 07/17/2015 42* >=60 mL/min/1.73m2 Final GLOMERULAR FILTRATION RATE,ESTIMATED mL/min/1.73m2 Less than 60 Chronic kidney disease,if found over a 3-month period. Less than 15 Kidney failure For Americans,multiply the calculated GFR by 1.21. CALCIUM 07/17/2015 9.6 8.3-10.5 mg/dL Final ALBUMIN 07/17/2015 3.6 3.2-5.0 g/dL Final BILIRUBIN TOTAL 07/17/2015 0.6 0.1-1.5 mg/dL Final Total protein 07/17/2015 6.9 6.0-7.8 g/dL Final AST 07/17/2015 17 10-42 U/L Final ALT 07/17/2015 14 6-45 U/L Final ALK PHOS 07/17/2015 61 40-110 U/L Final GLOBULIN 07/17/2015 3.3 2.1-3.8 g/dL Final Albumin/Globulin ratio 07/17/2015 1.1 0.8-2.0 Final BUN/CREA 07/17/2015 25.6 Final Hemoglobin A1c 07/17/2015 8.1* 4.3-6.0 % Final Estimated Average Glucose 07/17/2015 186 Final PHOSPHORUS 07/17/2015 3.5 2.5-4.6 mg/dL Final ASSESSMENT AND PLAN: 1. 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 -serum creatinine back to baseline -subnephrotic range proteinuria (on ACEI) -continue modest hypertensive control and improved glycemic control to preserve renal funct ion 2. Hypertension, renal disease, stage 1-4 or unspecified chronic kidney disease I12.9 403.90 Blood pressure has drifted up and is staying within goal. No sign of fluid retenti on. -continue current medication regimen N18.9 3. DM type 2, uncontrolled, with renal complications (HCC) E11.29 250.42 Hb A1c tommy nding up. Work with primary provider for improved control. E11.65 4. Vitamin D deficiency E55.9 268.9 Calcium and phosphorus are fine. Vitamin D repl ete. Follow up: 6 months Labs: renal panel, PTH, urine protein/cr ratio. Patient verbalized agreement and understanding of above plan. CC: Francois Pascal MD documented i n this encounter Plan of Treatment +--------+---------+ + + + | Date | Type | Specialty | Care Team | Description | +--------+---------+ + + + | 12/06/ | Office | Cardiology | Stephenie Paul, | | | 2019 | Visit | | MD Bob Sheehan | | | | | | [place], | | | | | | [place] [address] | | | | | | [phone] | | | | | | | | +--------+---------+ + + + documented as of this encounter Procedures + +--------+ + + + | Procedure Name | Priori | Date/Time | Associated Diagnosis | Comments | | | ty | | | | + +--------+ + + + | POCT URINALYSIS, | Routin | 07/21/2015 | CHRONIC KIDNEY | Results for this | | AUTO WITH CONF | e | 1:08 PM | DISEASE STAGE III | procedure are in the | | | | PDT | (MODERATE) | results section. | + +--------+ + + + documented in this encounter Results POCT Urinalysis Dipstick Automated (07/21/2015 1:08 PM PDT) + + + + + + | Component | Value | Ref Range | Performed | Pathologist | | | | | At | Signature | + + + + + + | Color, UA, | Yellow | Yellow, Light | | | | POC | | Yellow | | | + + + + + + | Clarity, | Clear | | | | | UA, POC | | | | | + + + + + + | Glucose, | Negative | Negative | | | | UA, POC | | | | | + + + + + + | Bilirubin, | Negative | Negative | | | | UA, POC | | | | | + + + + + + | Ketones, | Negative | Negative, 100 | | | | UA, POC | | mg/dL | | | + + + + + + | Specific | 1.015 | 1.001 - 1.030 | | | | [place], | | | | | | UA, POC | | | | | + + + + + + | Blood, UA, | Negative | Negative | | | | POC | | | | | + + + + + + | pH, UA, POC | 5.0 | 5.0, 6.0, 7.0, | | | | | | 8.0, 5.5, 6.5, | | | | | | 7.5 | | | + + + + + + | Protein, | Negative | Negative | | | | UA, POC | | | | | + + + + + + | Urobilinoge | 0.2 | 0.2, Negative, | | | | n, UA, POC | | Normal, < 0.2 | | | | | | mg/dL, 1 mg/dL, | | | | | | < 0.2 E.U./dl, | | | | | | 1.0 E.U./dL, | | | | | | 0.2 mg/dL | | | + + + + + + | Nitrite, | Negative | Negative | | | | UA, POC | | | | | + + + + + + | Leukocyte | Negative | Negative | | | | Esterase, | | | | | | UA, POC | | | | | + + + + + + | Reducing | | | | | | Substances, | | | | | | Urine | | | | | + + + + + + | Bilirubin | | Negative | | | | Confirmatio | | | | | | n by | | | | | | Ictotest, | | | | | | Urine | | | | | + + + + + + | Remark | | | | | + + + + + + + + | Specimen | + + | Urine specimen | | (specimen) | + + documented in this encounter Visit Diagnoses + + | Diagnosis | + + | CHRONIC KIDNEY DISEASE STAGE III (MODERATE) - Primary Chronic kidney disease, Stage | | III (moderate) | + + | Hypertension, renal disease, stage 1-4 or unspecified chronic kidney disease | + + | DM type 2, uncontrolled, with renal complications (HCC) Type II or unspecified type | | diabetes mellitus with renal manifestations, uncontrolled | + + | Vitamin D deficiency Unspecified vitamin D deficiency | + + documented in this encounter
--- OUTSIDE RECORDS SUMMARY | ~2019-09-12 | XMS | Encounter Summary ---
Demographics + + + | Address | [address] | | | [place] [address] | + + + | Home Phone | | + + + | Preferred Language | Unknown | + + + | Marital Status | | + + + | Rastafarian Affiliation | Unknown | + + + | Race | Unknown | + + + | Ethnic Group | Unknown | + + + Author + + + | Author | [facility] | | | and [place] | + + + | Organization | [facility] | | | and [place] | + + + | Address | Unknown | + + + | Phone | Unavailable | + + + Support + + + + + | Name | Relationship | Address | Phone | + + + + + | Sigrid Lennon | ECON | [address] | | | | | [place] [address] | | + + + + + | Valentín Saleh | ECON | [address] | | | | | [place] [address] | | + + + + + | Roberto Carlos Lennon | LEVI | Unknown | | + + + + + Care Team Providers + +------+ + | Care Gastroenterology Professor Name | Role | Phone | [...] Description | +--------+--------+ + + + | 09/12/ | Refill | [facility] [place] [facility] | Francois Pascal, | Medication Refill | | 2012 | | [facility] [place] | [address] | | | | | [address] | [address] [place], | | | | | [place] | [place] [address] | | | | | [address] | [phone] | | | | | [phone] | | | +--------+--------+ + + + [...] [place], | | | | | | [place] [address] | | | | | | [phone] | | | | | | | | +--------+---------+ + + + documented as of this encounter Visit Diagnoses Not on filedocumented in this encounter"
--- OUTSIDE RECORDS SUMMARY | ~2019-09-12 | XMS | Encounter Summary ---
Demographics + + + | Address | [address] | | | [place] [address] | + + + | Home Phone | | + + + | Preferred Language | Unknown | + + + | Marital Status | | + + + | Restoration Affiliation | Unknown | + + + | Race | Unknown | + + + | Ethnic Group | Unknown | + + + Author + + + | Author | [facility] | | | and [place] | + + + | Organization | [facility] | | | and [...] | | | | | [place] [address] | | + + + + + | Valentín Saleh | ECON | [address] | | | | | [place] [address] | | + + + + + | Roberto Carlos Lennon | LEVI | Unknown | | + + + + + Care Team Providers + +------+ + | Care Grain Operator Name | Role | Phone | [...] Description | +--------+--------+ + + + | 03/27/ | Refill | [facility] [place] [facility] | Francois Pascal, | Medication Refill | | 2013 | | [facility] [place] | [address] | | | | | [address] | [address] [place], | | | | | [place] | [place] [address] | | | | | [address] | [phone] | | | | | [phone] | | | +--------+--------+ + + + [...] | | | | | | [place] [address] | | | | | | [phone] | | | | | | | | +--------+---------+ + + + documented as of this encounter Visit Diagnoses Not on filedocumented in this encounter"
--- OUTSIDE RECORDS SUMMARY | ~2019-09-12 | XMS | Encounter Summary ---
Demographics + + + | Address | [address] | | | [place] [address] | + + + | Home Phone | | + + + | Preferred Language | Unknown | + + + | Marital Status | | + + + | Pentecostal Affiliation | Unknown | + + + | Race | Unknown | + + + | Ethnic Group | Unknown | + + + Author + + + | Author | [facility] | | | and [place] | + + + | Organization | [facility] | | | and [...] | | | | | [place] [address] | | + + + + + | Valentín Saleh | ECON | [address] | | | | | [place] [address] | | + + + + + | Roberto Carlos Lennon | LEVI | Unknown | | + + + + + Care Team Providers + +------+ + | Care Employee Communications Manager Name | Role | Phone | + +------+ + | Francois Pascal MD | PCP | | + +------+ + Encounter Details +--------+ + + + + | Date | Type | Department | Care Team | Description | +--------+ + + + + | 04/26/ | Orders Only | [facility] [place] | [place], | CHRONIC KIDNEY | | 2013 | | NEPHROLOGY [address] | [address] | DISEASE STAGE III | | | | [address] | [address] [facility] | (MODERATE) (Primary | | | | [place], [place] | [address] [place], [place] | Dx); Vitamin D | | | | [address] | [address] | deficiency; | | | | [phone] | | HYPERTENSION NEC | +--------+ + + + + Social [...] + documented as of this encounter Progress Zaynab Castellanos RN - 04/26/2013 2:36 PM PSTLabs for nephrology appt on 05/28/13 sent to [facility] documented in thi s encounter Plan of Treatment +--------+---------+ + + + | Date | Type | Specialty | Care Team | Description | +--------+---------+ + + + | 12/06/ | Office | Cardiology | Stephenie Paul, | | | 2019 | Visit | | MD Bob Sheehan | | | | | | [place], | | | | | | [place] [address] | | | | | | [phone] | | | | | | | | +--------+---------+ + + + documented as of this encounter Results Vitamin D, 25-Hydroxy (05/22/2013 10:26 AM PDT) + +-------+ + + + | Component | Value | Ref Range | Performed | Pathologist | | | | | At | Signature | + +-------+ + + + | Vitamin D, | 51 | 30 - 100 ng/mL | [facility] | | | 25 Hydroxy | | | [facility] | | [...] [address] | [place] | [phone] | | [facility] | | [address] | | | - LABORATORY | | | | + + + + + | [facility] | [address] | [place], [place] | | | [facility] | | [address] | | | - LABORATORY | | | | + + + + + CBC with Differential (05/22/2013 10:26 AM PDT) + + + + + + | Component | Value | Ref Range | Performed | Pathologist | | | | | At | Signature | + + + + + + | White Blood | 12.0 (H) | 4.0 - 11.0 K/uL | [facility] | | | Cells | | | [facility] | | | | | | [facility] | | | | | | [facility] - | | | | | | LABORATORY | | + + + + + + | Red Blood | 3.82 | 3.70 - 5.20 | [facility] | | | Cells | | M/uL | [facility] | | | | | | MEDICAL | | | | | | CENTER - | | | | | | LABORATORY | | + + + + + + | Hemoglobin | 13.8 | 11.5 - 16.0 | [facility] | | | | | g/dL | [facility] | | | | | | MEDICAL | | | | | | CENTER - | | | | | | LABORATORY | | + + + + + + | Hematocrit | 39.6 | 34.0 - 47.0 % | [facility] | | | | | | [facility] | | [facility] | | | [facility] | | | | | | CENTER - | | | | | | LABORATORY | | + + + + + + | MCV | 103.7 (H) | 83.0 - 101.0 fL | [facility] | | | | | | [facility] | | | | | | [facility] | | | | | | CENTER - | | | | | | LABORATORY | | + + + + + + | MCH | 36.1 (H) | 28.0 - 35.0 pg | [facility] [...] + + + + | RDW-CV | 15.8 (H) | <15.0 % | [facility] | | | | | | [facility] | | | | | | [facility] | | | | | | CENTER - | | | | | | LABORATORY | | + + + + + + | Platelet | 180 | 140 - 440 K/uL | [facility] [...] + + + + | % | 60.9 | 45.0 - 82.0 % | [facility] [...] + + + | % Monocytes | 13.2 (H) | 4.0 - 12.0 % | [facility] | | | | | | [facility] | | | | | | MEDICAL | | | | | | CENTER - | | | | | | LABORATORY | | + + + + + + | % | 6.1 (H) | 0.0 - 5.0 % | [facility] | | | Eosinophils | | | [facility] | | | | | | MEDICAL | | | | | | CENTER - | | | | | | LABORATORY | | + + + + + + | % Basophils | 1.1 (H) | 0.0 - 1.0 % | [facility] | | | | | | [facility] | | | | | | MEDICAL | | | | | | CENTER - | | | | | | LABORATORY | | + + + + + + | Absolute | 7.30 | 1.80 - 8.50 | [facility] | | | Neutrophils | | K/uL | [facility] | | | | | | MEDICAL | | | | | | CENTER - | | | | | | LABORATORY | | + + + + + + | Absolute | 2.30 | 0.60 - 3.20 | [facility] | | | Lymphocytes | | K/uL | [facility] | | | | | | MEDICAL | | | | | | CENTER - | | | | | | LABORATORY | | + + + + + + | Absolute | 1.60 (H) | 0.00 - 1.00 | [facility] [...] + | [facility] | [address] | [place] | [phone] | | [facility] | | [address] | | | - LABORATORY | | | | + + + + + | [facility] | [address] | [place], [place] | | | [facility] | | [address] [place] [address] | | | - LABORATORY | | | | + + + + + Renal Function Panel (05/22/2013 10:26 AM PDT) + + + + + + | Component | Value | Ref Range | Performed | Pathologist | | | | | At | Signature | + + + + + + | Na | 134 (L) | 136 - 149 | [facility] | | | | | mmol/L | [facility] | | | | | | MEDICAL | | | | | | CENTER - | | | | | | LABORATORY | | + + + + + + | K | 3.6 | 3.5 - 5.1 | [facility] | [...] + + + | Anion Gap | 9 | 6 - 17 mmol/L | [facility] | | | | | | [facility] | | | | | | MEDICAL | | | | | | CENTER - | | | | | | LABORATORY | | + + + + + + | Glucose | 154 (H) | 70 - 109 mg/dL | [facility] | | | | | | [facility] | | | | | | MEDICAL | | | | | | CENTER - | | | | | | LABORATORY | | + + + + + + | BUN | 22 (H) | 7 - 18 mg/dL | [facility] | | | | | | [facility] | | | | | | MEDICAL | | | | | | CENTER - | | | | | | LABORATORY | | + + + + + + | Creatinine | 1.07 | 0.60 - 1.30 | [facility] | | | | | mg/dL | [facility] | | | | | | MEDICAL | | | | | | CENTER - | | | | | | LABORATORY | | + + + + + + | eGFR if not | 49 (L)Comment: | >=60 | [facility] | | | | GLOMERULAR FILTRATION | mL/min/1.73m2 | [facility] | | | UKRAINIAN | RATE,ESTIMATED | | MEDICAL | | | | mL/min/1.39k0Etam than | | CENTER - | | [...] + + + + | Albumin | 3.7 | 3.2 - 5.0 g/dL | [facility] | | | | | | [facility] | | | | | | MEDICAL | | | | | | CENTER - | | | | | | LABORATORY | | + + + + + + | Phosphorus | 3.1 | 2.5 - 4.6 mg/dL | [facility] | | | | | | [facility] | | | | | | MEDICAL | | | | | | CENTER - | | | | | | LABORATORY | | + + + + + + | BUN/Creatin | 20.6 | | [facility] | | | ine [...] + + | Performing | Address | [facility] | Phone Number | | Organization | | | | + + + + + | [facility] | [address] | [place] | [phone] | | [facility] | | [address] | | | - LABORATORY | | | | + + + + + | [facility] | [address] | [place] | | | [facility] | | [address], [facility] | | | - LABORATORY | | | | + + + + + documented in this encounter Visit Diagnoses + + | Diagnosis | + + | CHRONIC KIDNEY DISEASE STAGE III (MODERATE) - Primary Chronic kidney disease, Stage | | III (moderate) | + + | Vitamin D deficiency Unspecified vitamin D deficiency | + + | HYPERTENSION NEC Complications affecting other specified body systems, hypertension | + + documented in this encounter"
--- OUTSIDE RECORDS SUMMARY | ~2019-09-12 | XMS | Encounter Summary ---
Demographics + + + | Address | [address] | | | [place] [address] | + + + | Home Phone | | + + + | Preferred Language | Unknown | + + + | Marital Status | | + + + | Denominational Affiliation | Unknown | + + + | Race | Unknown | + + + | Ethnic Group | Unknown | + + + Author + + + | Author | [facility] | | | and [place] | + + + | Organization | [facility] | | | and [...] | | | | | [place] [address] | | + + + + + | Valentín Saleh | ECON | [address] | | | | | [place] [address] | | + + + + + | Roberto Carlos Lennon | LEVI | Unknown | | + + + + + Care Team Providers + +------+ + | Care Plastic Welder Name | Role | Phone | + +------+ + | Farncois Pascal MD | PCP | | + +------+ + Reason for Visit + + + | Reason | Comments | + + + | Numbness | Left ankle | + + + Service/Procedure (Routine) +--------+--------+ + + + + | Status | Reason | Specialty | Diagnoses / | Referred By | Referred To | | | | | Procedures | Contact | Contact | +--------+--------+ + + + + | Closed | | Physical | Diagnoses | Don, | Ke[place], | | | | Medicine and | Disturbance | Trevor Wilson, | MD Maxime | | | | Rehabilitatio | of skin | [address] | | | | n | sensation | [place] | [address] | | | | | Neuropathy | [address] | [place] | | | | | Procedures | [place] | [address] Phone: | | | | | [place] | [place] | [phone] | | | | | &/SENS 1-2 | [phone] | Fax: | | | | | NRV CNDJ | Phone: | [phone] | | | | | PRECONF | [phone] | | | | | | [place] | Fax: | | | | | | [place] | [phone] | | | | | | &/SENS 7-8 | | | | | | | NRV CNDJ | | | | | | | PRECONF | | | | | | | [place] | | | | | | | [place] | | | | | | | EMG EA | | | | | | | EXTREMITY | | | | | | | W/PARASPINL | | | | | | | AREA LIMITED | | | | | | | [place] | | | | | | | EMG EA | | | | | | | EXTREMTY | | | | | | | W/PARASPINL | | | | | | | AREA | | | | | | | COMPLETE | | | +--------+--------+ + + + + Encounter Details +--------+ + + + + | Date | Type | Department | Care Team | Description | +--------+ + + + + | 11/23/ | Procedure | [facility] [place] | Maxime Herbert, | Diabetes mellitus | | 2016 | visit | PHYSIATRY [address] | [address] | due to underlying | | | | [address] | [address] [place], | condition with | | | | [place] | [place] [address] | hyperglycemia (HCC) | | | | [address] | [phone] | (Primary Dx); | | | | [phone] | | Diabetic | | | | | | polyneuropathy | | | | | | associated with type | | | | | | 2 diabetes mellitus | | | | | | (HCC); | | | | | | Polyneuropathy (HCC) | +--------+ + + + + Social [...] + + + | Blood Pressure | 127/67 | 11/24/2015 3:02 PM | | | | | PDT | | + + + + + | Pulse | 66 | 11/24/2015 3:02 PM | | | | | PDT [...] + + + + | Weight | 74.6 kg (164 lb 6.4 | 11/24/2015 3:02 PM | | | | oz) | PDT | | + + + + + | Height | 162.6 cm (5' 4") | 11/24/2015 3:02 PM | | | | | PDT | | + + + + + | Body Mass Index | 28.22 | 11/24/2015 3:02 PM | | | | | PDT | | + + + + + documented in this encounter Procedure Notes Maxime Herbert MD - 11/26/2015 12:12 PM PDTAssociated Order(s): EMG STUDYProcedure(s) : EMG STUDYPre-Procedure Diagnose(s): 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 [facility] Musculoskeletal, Sports and Spine, Physiatry [facility] [address] [address] Test Date: 11/24/2015 Patient Name: Alyson Lennon : 1930 Physician: Maxime Herbert MD MR #: [id number] Sex: Female Referring Physician: Trevor Ochoa MD HISTORY: Ms. Lennon is a 84 year-old woman with a history of DM and chronic left ankle pain who was referred to the EMG lab to evaluate for a peripheral neuropathy. Patient reports a long his tory of bilateral burning over the dorsum of her feet and also left ankle pain since her inj ury. On exam she has bilateral EHL weakness 4+/5, and absent vibration sense at the toes/an kles, and mildly reduced at knees. Anti Sensory Summary Table Site NR Peak (ms) Norm Peak (ms) P-T Amp (V) Norm P-T Amp Site1 Site2 Delta-P (ms) Dist (cm) Milan (m/s) Norm Milan (m/s) Left Radial Anti Sensory (Base 1st Digit) Wrist 2.5 <3.1 11.6 Wrist Base 1st Digit 2.5 10.0 40 Left Sural Anti Sensory (Lat Mall) Calf *NR <4.0 >5.0 Calf Lat Mall 14.0 >35 Right Sural Anti Sensory (Lat Mall) Calf *NR <4.0 >5.0 Calf Lat Mall 14.0 >35 Motor Summary Table Site NR Onset (ms) Norm Onset (ms) O-P Amp (mV) Norm O-P Amp Site1 Site2 Delta-0 (ms) Dist (cm) Milan (m/s) Norm Milan (m/s) Left Peroneal Motor Run #1 (Ext Dig Brev) Ankle 4.8 <6.1 *1.0 >2.5 B Fib Ankle 6.1 23.5 39 >38 B Fib 10.9 0.8 Poplt B Fib 2.0 8.0 40 >40 Poplt 12.9 0.7 Left Peroneal Motor Run #2 (TA) B Fib 4.1 <6.1 3.0 >2.5 B Fib Ankle 1.7 8.0 47 >38 Poplt 5.8 2.9 Right Peroneal Motor (Ext Dig Brev) Ankle 4.7 <6.1 2.8 >2.5 B Fib Ankle 6.4 26.0 41 >38 B Fib 11.1 2.3 Poplt B Fib 2.2 10.0 45 >40 Poplt 13.3 2.3 Left Tibial Motor (Abd Sharma Brev) Ankle 5.2 <6.1 3.0 >3.0 Knee Ankle 8.4 33.0 39 >35 Knee 13.6 2.3 Right Tibial Motor (Abd Sharma Brev) Ankle 4.9 <6.1 3.6 >3.0 Knee Ankle 9.9 35.0 35 >35 Knee 14.8 1.3 EMG Side Muscle Nerve Root Ins Act Fibs Psw Amp Dur Poly Recrt Int Pat Comment Left AntTibialis Dp Br Peron L4-5 Nml Nml Nml Nml Nml 0 Nml Nml Left Gastroc Tibial S1-2 Nml Nml Nml Nml Nml 0 Nml Nml Right ExtHallLong Dp Br Peron L5, S1 Nml *1+ Nml *Incr Nml 0 *Reduced Nml Right Gastroc Tibial S1-2 Nml Nml Nml Nml Nml 0 Nml Nml Left ExtHallLong Dp Br Peron L5, S1 Nml *1+ Nml *Incr Nml 0 *Reduced Nml Left Peroneus Long Sup Br Peron L5-S1 Nml Nml Nml Nml Nml 0 Nml Nml Left PostTibialis Tibial L5, S1 Nml Nml Nml Nml Nml 0 Nml Nml Left Interossei Dp Br Peron L5, S1 Nml Nml Nml *Incr Nml 0 *Reduced Nml Right Interossei Dp Br Peron L5, S1 Nml Nml Nml *Incr Nml 0 *Reduced Nml NCV FINDINGS: Evaluation of the Left peroneal motor nerve showed reduced amplitude. The Left sural senso ry and the Right sural sensory nerves showed no response (Calf). All remaining nerves (as i ndicated in the following tables) were within normal limits. EMG FINDINGS: Needle evaluation of the Right and left extensor hallucis longus muscle showed slightly inc reased spontaneous activity, increased motor unit amplitude, and diminished recruitment. Th e Left and right interossei muscles showed increased motor unit amplitude and diminished rec ruitment. All remaining muscles (as indicated in the following table) showed no evidence of electrical instability. IMPRESSION: This is an abnormal study. There is electrodiagnostic evidence of a pzbr-qx-czgzmgbx polyn europathy with predominantly axonal features. There is no electrodiagnostic evidence of a l eft or right lumbar radiculopathy. The clinical significance of the asymmetric peroneal-EDB CMAP amplitudes is not known. Thi s could represent a non-localizable peroneal neuropathy or more likely due to repetitive EDB muscle trauma, clinical correlation recommended. Thank you for allowing me to perform neurodiagnostic testing on your patient. If you have a ny further questions or comments, please do not hesitate to call. Maxime Herbert MD Diplomate, [place] [employer] and [employer]. documented in thi s encounter Plan of Treatment +--------+---------+ + + + | Date | Type | Specialty | Care Team | Description | +--------+---------+ + + + | 12/06/ | Office | Cardiology | Stephenie Paul, | | | 2019 | Visit | | MD Bob Sheehan | | | | | | [place], | | | | | | [place] [address] | | | | | | [phone] | | | | | | | | +--------+---------+ + + + documented as of this encounter Procedures + +--------+ + + + | Procedure Name | Priori | Date/Time | Associated Diagnosis | Comments | | | ty | | | | + +--------+ + + + | EMG STUDY | Routin | 11/26/2015 | Diabetes mellitus | Results for this | | | e | 12:13 PM | due to underlying | procedure are in the | | | | PDT | condition with | results section. | | | | | hyperglycemia (HCC) | | | | | | Diabetic | | | | | | polyneuropathy | | | | | | associated with type | | | | | | 2 diabetes mellitus | | | | | | (HCC) | | + +--------+ + + + documented in this encounter Results EMG Study (11/26/2015 12:13 PM PDT) + + + | Narrative | Performed At | + + + | Maxime Herbert MD 11/26/2015 12:13 [facility] | | | [facility] Musculoskeletal, Sports and Spine, Physiatry [facility] [address] [place] [address] Ph: | | | Test Date: 11/24/2015 | | | Patient Name: Alyson Lennon : 1930 Physician: Maxime | | | MD Keon MR #: [id number] Sex: Female Referring Physician: | | | Trevor Ochoa MD HISTORY: Ms. Lennon is a 84 year-old | | | woman with a history of DM and chronic left ankle pain who was | | | referred to the EMG lab to evaluate for a peripheral neuropathy. | | | Patient reports a long history of bilateral burning over the | | | dorsum of her feet and also left ankle pain since her injury. On | | | exam she has bilateral EHL weakness 4+/5, and absent vibration sense | | | at the toes/ankles, and mildly reduced at knees. Anti Sensory | | | Summary Table Site NR Peak (ms) Norm Peak (ms) P-T Amp ( V) Norm | | | P-T Amp Site1 Site2 Delta-P (ms) Dist (cm) Milan (m/s) Norm Milan (m/s) | | | Left Radial Anti Sensory (Base 1st Digit) Wrist 2.5 <3.1 11.6 | | | Wrist Base 1st Digit 2.5 10.0 40 Left Sural Anti Sensory (Lat | | | Mall) Calf *NR <4.0 >5.0 Calf Lat Mall 14.0 >35 Right | | | Sural Anti Sensory (Lat Mall) Calf *NR <4.0 >5.0 Calf Lat Mall | | | 14.0 >35 Motor Summary Table Site NR Onset (ms) Norm Onset | | | (ms) O-P Amp (mV) Norm O-P Amp Site1 Site2 Delta-0 (ms) Dist (cm) | | | Milan (m/s) Norm Milan (m/s) Left Peroneal Motor Run #1 (Ext Dig Brev) | | | Ankle 4.8 <6.1 *1.0 >2.5 B Fib Ankle 6.1 23.5 39 >38 B Fib | | | 10.9 0.8 Poplt B Fib 2.0 8.0 40 >40 Poplt 12.9 0.7 | | | Left Peroneal Motor Run #2 (TA) B Fib 4.1 <6.1 3.0 | | | >2.5 B Fib Ankle 1.7 8.0 47 >38 Poplt 5.8 2.9 | | | Right Peroneal Motor (Ext Dig Brev) Ankle 4.7 <6.1 2.8 >2.5 B | | | Fib Ankle 6.4 26.0 41 >38 B Fib 11.1 2.3 Poplt B Fib 2.2 | | | 10.0 45 >40 Poplt 13.3 2.3 Left Tibial Motor | | | (Abd Sharma Brev) Ankle 5.2 <6.1 3.0 >3.0 Knee Ankle 8.4 33.0 39 | | | >35 Knee 13.6 2.3 Right Tibial Motor (Abd Sharma | | | Brev) Ankle 4.9 <6.1 3.6 >3.0 Knee Ankle 9.9 35.0 35 >35 Knee | | | 14.8 1.3 EMG Side Muscle Nerve Root Ins Act | | | Fibs Psw Amp Dur Poly Recrt Int Pat Comment Left AntTibialis Dp Br | | | Peron L4-5 Nml Nml Nml Nml Nml 0 Nml Nml Left Gastroc Tibial S1-2 | | | Nml Nml Nml Nml Nml 0 Nml Nml Right ExtHallLong Dp Br Peron L5, | | | S1 Nml *1+ Nml *Incr Nml 0 *Reduced Nml Right Gastroc Tibial | | | S1-2 Nml Nml Nml Nml Nml 0 Nml Nml Left ExtHallLong Dp Br Peron | | | L5, S1 Nml *1+ Nml *Incr Nml 0 *Reduced Nml Left Peroneus Long | | | Sup Br Peron L5-S1 Nml Nml Nml Nml Nml 0 Nml Nml Left | | | PostTibialis Tibial L5, S1 Nml Nml Nml Nml Nml 0 Nml Nml Left | | | Interossei Dp Br Peron L5, S1 Nml Nml Nml *Incr Nml 0 *Reduced Nml | | | Right Interossei Dp Br Peron L5, S1 Nml Nml Nml *Incr Nml 0 | | | *Reduced Nml NCV FINDINGS: Evaluation of the Left peroneal | | | motor nerve showed reduced amplitude. The Left sural sensory and | | | the Right sural sensory nerves showed no response (Calf). All | | | remaining nerves (as indicated in the following tables) were within | | | normal limits. EMG FINDINGS: Needle evaluation of the Right | | | and left extensor hallucis longus muscle showed slightly increased | | | spontaneous activity, increased motor unit amplitude, and diminished | | | recruitment. The Left and right interossei muscles showed | | | increased motor unit amplitude and diminished recruitment. All | | | remaining muscles (as indicated in the following table) showed no | | | evidence of electrical instability. IMPRESSION: This is an | | | abnormal study. There is electrodiagnostic evidence of a | | | drup-is-pvgjvepy polyneuropathy with predominantly axonal features. | | | There is no electrodiagnostic evidence of a left or right lumbar | | | radiculopathy. The clinical significance of the asymmetric | | | peroneal-EDB CMAP amplitudes is not known. This could represent a | | | non-localizable peroneal neuropathy or more likely due to repetitive | | | EDB muscle trauma, clinical correlation recommended. Thank | | | you for allowing me to perform neurodiagnostic testing on your | | | patient. If you have any further questions or comments, please do | | | not hesitate to call. | | | Maxime Herbert MD Diplomate, [place] [employer] Medicine | | | and Rehabilitation. 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
--- OUTSIDE RECORDS SUMMARY | ~2019-09-12 | XMS | Encounter Summary ---
Demographics + + + | Address | [address] | | | [place] [address] | + + + | Home Phone | | + + + | Preferred Language | Unknown | + + + | Marital Status | | + + + | Evangelical Affiliation | Unknown | + + + | Race | Unknown | + + + | Ethnic Group | Unknown | + + + Author + + + | Author | [facility] | | | and [place] | + + + | Organization | [facility] | | | and [place] | + + + | Address | Unknown | + + + | Phone | Unavailable | + + + Support + + + + + | Name | Relationship | Address | Phone | + + + + + | Sigrid Lennon | ECON | [address] | | | | | [place] [address] | | + + + + + | Valentín Saleh | ECON | [address] | | | | | [place] [address] | | + + + + + | Roberto Carlos Lennon | LEVI | Unknown | | + + + + + Care Team Providers + +------+ + | Care Master Control Engineer Name | Role | Phone | + +------+ + | Francois Pascal MD | PCP | | + +------+ + Encounter Details +--------+ + + + + | Date | Type | Department | Care Team | Description | +--------+ + + + + | 05/23/ | [facility] | [facility] | Francois Pascal, | | | 2011 | Encounter | MED CTR XRAY [address] | | | | | [place] | [address] [place], | | | | | [place] [address] | [place] [address] | | | | | [phone] | [phone] | | | | | | | [...] + + + +---------+ + + | fluticasone | 2 sprays by Nasal | | 0 | 05/24/19 | | | (FLONASE) 50 | route as needed. | | | 12 | 4 | | mcg/nasal spray | | | | | | + + + +---------+ + + | fluticasone | 2 sprays each | | 0 | 05/24/19 | | | (FLONASE) 50 | nostril daily | | | 12 | 3 | | mcg/nasal spray | | | | | | + + + +---------+ + + | methotrexate 2.5 | Take 5 tablets by | | 0 | 07/04/19 | | | mg tablet | mouth weekly | | | 11 | 2 | + + + +---------+ + + | simvastatin | Take 1/2 tablet by | | 0 | 04/09/19 | | | (ZOCOR) 40 mg tablet | mouth every day | | | 11 | 3 | + + + +---------+ + + [...] | | | | | | [place] [address] | | | | | | [phone] | | | | | | | | +--------+---------+ + + + documented as of this encounter Procedures + +--------+ + + + | Procedure Name | Priori | Date/Time | Associated Diagnosis | Comments | | | ty | | | | + +--------+ + + + | CBC WITH | Routin | 05/24/2011 | | Results for this | | DIFFERENTIAL | e | 4:10 PM | | procedure are in the | | | | PDT | | results section. | + +--------+ + + + | TSH | Routin | 05/24/2011 | | Results for this | | | e | 4:10 PM | | procedure are in the | | | | PDT | | results section. | + +--------+ + + + | HEMOGLOBIN A1C | Routin | 05/24/2011 | | Results for this | | | e | 4:10 PM | | procedure are in the | | | | PDT | | results section. | + +--------+ + + + | COMPREHENSIVE | Routin | 05/24/2011 | | Results for this | | METABOLIC PANEL | e | 4:10 PM | | procedure are in the | | | | PDT | | results section. | + +--------+ + + + | XR CHEST PA AND | | 05/24/2011 | | Results for this | | LATERAL | | 3:33 PM | | procedure are in the | | | | PDT | | results section. | + +--------+ + + + documented in this encounter Results Comprehensive Metabolic Panel (05/24/2011 4:10 PM PDT) + + + + + + | Component | Value | Ref Range | Performed | Pathologist | | | | | At | Signature | + + + + + + | Glucose | 190 (H) | 70 - 109 mg/dL | [facility] | | | | | [facility] | | | | | | [facility] | | | | | | [facility] - | | | | | | LABORATORY | | + + + + + + | Calcium | 9.5 | 8.3 - 10.5 | [facility] | | | | | mg/dL | [facility] | | | | | | [facility] | | | | | | C[facility] - | | | | | | LABORATORY | | + + + + + + | Alkaline | 53 | 40 - 110 IU/L | [facility] | | | Phosphatase | | | [facility] | | | | | | [facility] | | | | | | C[facility] - | | | | | | LABORATORY | | + + + + + + | AST | 26 | 10 - 42 IU/L | [facility] | | | | | | [facility] | | | | | | [facility] | | | | | | C[facility] - | | | | | | LABORATORY | | + + + + + + | ALT | 19 | 6 - 45 IU/L | [facility] | | | | | | [facility] | | | | | | [facility] | | | | | | C[facility] - | | | | | | LABORATORY | | + + + + + + | Bilirubin | 0.6 | 0.2 - 1.0 mg/dL | [facility] | | | Total | | | [facility] | | | | | | [facility] | | | | | | CENTER - | | | | | | LABORATORY | | + + + + + + | Total | 6.9 | 6.0 - 7.8 gm/dL | [facility] | | | Protein | | | [facility] | | | | | | [facility] | | | | | | CENTER - | | | | | | LABORATORY | | + + + + + + | Albumin | 3.9 | 3.2 - 5.0 gm/dL | [facility] [...] + + + + | Creatinine | 1.64 (H) | 0.60 - 1.30 | [facility] | | | | | mg/dL | [facility] | | [facility] | | [facility] | | | | | | [facility] - | | | | | | LABORATORY | | + + + + + + | Estimated | 30 (L)Comment: For | >60 mL/min/A | [facility] | | | GFR | -Americans, | | [facility] | | | | please multiply the | | MEDICAL | | | | result by 1.210 | | CENTER - | | | | This is an estimated | | LABORATORY | | | | GFR and is based on a | | | | | | standard adult | | | | | | body mass (A=1.73m2) and | | | | | | serum creatinine | | | | + + + + + + | BUN/Creatin | 10.4 (L) | 12 - 20 | [facility] | | | ine Ratio | | | [facility] | | | | | | MEDICAL | | | | | | CENTER - | | | | | | LABORATORY | | + + + + + + | Na | 139 | 136 - 149 mEq/L | [facility] | | | | | | [facility] | | | | | | [facility] | | | | | | CENTER - | | | | | | LABORATORY | | + + + + + + | K | 4.1 | 3.5 - 5.1 mEq/l | [facility] | | | | | | [facility] | | | | | | [facility]ICAL | | | | | | CENTER - | | | | | | LABORATORY | | + + + + + + | Cl | 100 | 98 - 109 mEq/l | [facility] | | | | | | [facility] | | | | | | [facility]ICAL | | | | | | CENTER - | | | | | | LABORATORY | | + + + + + + | CO2 | 29 | 24 - 31 mEq/L | [facility] | | | | | | [facility] | | | | | | MEDICAL | | | | | | CENTER - | | | | | | LABORATORY | | + + + + + + | Anion Gap | 14.1 | 6.0 - 17.0 | [facility] | [...] + | [facility] | [address] | [place], [place] | [phone] | | [facility] | | [address] | | | - LABORATORY | | | | + + + + + | [facility] | [address] | [place], [place] | | | [facility] | | [address] | | | - LABORATORY | | | | + + + + + TSH (05/24/2011 4:10 PM PDT) + + + + + + | Component | Value | Ref Range | Performed | Pathologist | | | | | At | Signature | + + + + + + | TSH | 0.72Comment: Testing | 0.34 - 5.60 | [facility] | | | | performed on the [facility] | uIU/mL | [facility] | | | | [facility] | | MEDICAL | | | | Analyzer. | | CENTER - | | | | | | LABORATORY | | + + + + + + + + | Specimen | + + | | + + + + + + + | Performing | Address | City/State/Zipcode | Phone Number | | Organization | | | | + + + + + | [facility] | [address] | [place], [place] | [phone] | | [facility] | | [address] | | | - LABORATORY | | | | + + + + + | [facility] | [address] | [place], [place] | | | [facility] | | [address] [place] [address] | | | - LABORATORY | | | | + + + + + Hemoglobin A1C (05/24/2011 4:10 PM PDT) + + + + + + | Component | Value | Ref Range | Performed | Pathologist | | | | | At | Signature | + + + + + + | Hemoglobin | 6.4 (H)Comment: | 4.3 - 5.8 % | [...] | | | | | >9.0% = Poorly | | | | | | Controlled | | | | + + + + + + + + | Specimen | + + | | + + + + + + + | Performing | Address | City/State/Zipcode | Phone Number | | Organization | | | | + + + + + | [facility] | [address] | [place], [place] | [phone] | | [facility] | | [address] | | | - LABORATORY | | | | + + + + + | [facility] | [address] | [place], [place] | | | [facility] | | [address] | | | - LABORATORY | | | | + + + + + CBC with Differential (05/24/2011 4:10 PM PDT) + + + + + + | Component | Value | Ref Range | Performed | Pathologist | | | | | At | Signature | + + + + + + | White Blood | 9.4 | 4.0 - 11.0 K/uL | [facility] | | | Cells | | | [facility] | | | | | | MEDICAL | | | | | | CENTER - | | | | | | LABORATORY | | + + + + + + | Red Blood | 3.71 | 3.70 - 5.20 | [facility] | | | Cells | | M/uL | [facility] | | | | | | MEDICAL | | | | | | CENTER - | | | | | | LABORATORY | | + + + + + + | Hemoglobin | 13.6 | 11.5 - 16.0 | [facility] | | | | | gm/dL | [facility] | | | | | | MEDICAL | | | | | | CENTER - | | | | | | LABORATORY | | + + + + + + | Hematocrit | 40.9 | 34.0 - 47.0 % | [facility] | | | | | | [facility] | | | | | | [facility]ICAL | | | | | | CENTER - | | | | | | LABORATORY | | + + + + + + | MCV | 110.1 (H) | 83.0 - 101.0 fL | [facility] | | | | | | [facility] | | | | | | MEDICAL | | | | | | CENTER - | | | | | | LABORATORY | | + + + + + + | MCH | 36.6 (H) | 28.0 - 35.0 pg | [facility] | | | | | | [facility] | | | | | | MEDICAL | | | | | | CENTER - | | | | | | LABORATORY | | + + + + + + | MCHC | 33.2 | 32.0 - 36.0 | [facility] | | | | | g/dL | [facility] | | | | | | MEDICAL | | | | | | CENTER - | | | | | | LABORATORY | | + + + + + + | RDW-CV | 14.7 | <15.0 % | [facility] | | | | | | [facility] | | | | | | MEDICAL | | | | | | CENTER - | | | | | | LABORATORY | | + + + + + + | Platelet | 161 | 140 - 440 K/uL | [facility] | | | Count | | | [facility] | | | | | | MEDICAL | | | | | | CENTER - | | | | | | LABORATORY | | + + + + + + | % | 56.2 | 45 - 75 % | [facility] | | | Neutrophils | | | [facility] | | | | | | MEDICAL | | | | | | CENTER - | | | | | | LABORATORY | | + + + + + + | % | 25.4 | 20 - 45 % | [facility] | | | Lymphocytes | | | [facility] | | | | | | MEDICAL | | | | | | CENTER - | | | | | | LABORATORY | | + + + + + + | % Monocytes | 11.2 | 4 - 12 % | [facility] | | | | | | [facility] | | | | | | MEDICAL | | | | | | CENTER - | | | | | | LABORATORY | | + + + + + + | % | 6.7 (H) | 0 - 5 % | [facility] | | | Eosinophils | | | [facility] | | | | | | MEDICAL | | | | | | CENTER - | | | | | | LABORATORY | | + + + + + + | % Basophils | 0.5 | 0 - 1 % | [facility] | | | | | | [facility] | | | | | | MEDICAL | | | | | | CENTER - | | | | | | LABORATORY | | + + + + + + | Absolute | 5.3 | 1.5 - 6.6 K/uL | [facility] | | | Neutrophils | | | [facility] | | | | | | MEDICAL | | | | | | CENTER - | | | | | | LABORATORY | | + + + + + + | Absolute | 2.4 | 0.6 - 3.2 K/uL | [facility] | | | Lymphocytes | | | [facility] | | | | | | MEDICAL | | | | | | CENTER - | | | | | | LABORATORY | | + + + + + + | Absolute | 1.0 | 0.0 - 1.0 K/uL | [facility] | | | Monocytes | | | [facility] | | | | | | MEDICAL | | | | | | CENTER - | | | | | | LABORATORY | | + + + + + + | Absolute | 0.6 (H) | 0.0 - 0.4 K/uL | [facility] | | | Eosinophils | | | [facility] | | | | | | MEDICAL | | | | | | CENTER - | | | | | | LABORATORY | | + + + + + + | Absolute | 0.0 | 0.0 - 0.1 K/uL | [facility] | | | Basophils | | | [facility] | | | | | | MEDICAL | | | | | | CENTER - | | | | | | LABORATORY | | + + + + + + | FLAG | 1Comment: Macrocytosis | | [facility] | | | | [...] + | [facility] | [address] | [place] | [phone] | | [facility] | | [address] | | | - LABORATORY | | | | + + + + + | [facility] | [address] | [place], [place] | | | [facility] | | [address] | | | - LABORATORY | | | | + + + + + XR Chest PA and Lateral (05/24/2011 3:33 PM PDT) + + | Specimen | + + | | + + + + + | Narrative | Performed At | + + + | [facility] | [facility] | | [address] [facility] | [facility] | | TWO VIEW CHEST 05/24/2011 | DIA IMG | | CLINICAL HISTORY: VIRAL URI. COMPARISON: 2009. | | | FINDINGS: The patient is status post median sternotomy and CABG. | | | There is stable mild cardiomegaly without heart failure. There | | | is no infiltrate or effusion. Bones are osteopenic. There are | | | stable compression deformities of the mid to lower thoracic spine. | | | There is minimal plate-like atelectasis or scarring at both bases. | | | IMPRESSION: 1. NEGATIVE FOR ACUTE CARDIOPULMONARY DISEASE. | | | 2. 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 | | | 3. BASILAR ATELECTASIS VERSUS SCARRING. Dictated Date/Time: | | | 05/24/2011 17:51 Transcribed Date/Time: 05/24/2011 18:13 | | | Pack Worker Supervisor: <Electronically Signed by Jose Velázquez, | | | > 05/25/11 1044 | | + + + + + | Procedure Note | + + | Al, Rad Conversion - 04/13/2013 4:57 PM [facility] | | Diagnostic Imaging Department [address] [place] [address] | | TWO VIEW CHEST 05/24/2011 CLINICAL HISTORY: VIRAL URI. | | COMPARISON: 2009. FINDINGS: The patient is status post median sternotomy and CABG. | | There is stable mild cardiomegaly without heart failure. There is no infiltrate or | | effusion. Bones are osteopenic. There are stable compression deformities of the mid to | | lower thoracic spine. There is minimal plate-like atelectasis or scarring at both | | bases. IMPRESSION: 1. NEGATIVE FOR ACUTE CARDIOPULMONARY DISEASE. 2. STABLE | | BORDERLINE CARDIOMEGALY WITHOUT HEART FAILURE. 3. BASILAR ATELECTASIS VERSUS | | SCARRING. Dictated Date/Time: 05/24/2011 17:51Transcribed Date/Time: 05/24/2011 | | 18:13Transcriptionist: <Electronically Signed by Jose Velázquez MD> 05/25/11 | | 1044 | |FINDINGS: The patient is status post median sternotomy and CABG. There is stable mild car diomegaly | |without heart failure. There is no infiltrate or effusion. Bones are osteopenic. There a re stable | |compression deformities of the mid to lower thoracic spine. There is minimal plate-like at electasis | |or scarring at both bases. | | | |IMPRESSION: | |1. NEGATIVE FOR ACUTE CARDIOPULMONARY DISEASE. | | | |2. 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 | | | |3. BASILAR ATELECTASIS VERSUS SCARRING. | | | |Dictated Date/Time: 05/24/2011 17:51 | |Transcribed Date/Time: 05/24/2011 18:13 | |Pack Worker Supervisor: | |<Electronically Signed by Jose Velázquez MD> 05/25/11 1044 | + + + +---------+ + + | Performing | Address | City/State/Zipcode | Phone Number | | Organization | | | | + +---------+ + + | [place] | | | | | [facility] | | | | + +---------+ + + documented in this encounter Visit Diagnoses Not on filedocumented in this encounter"
--- OUTSIDE RECORDS SUMMARY | ~2019-09-12 | XMS | Encounter Summary ---
Demographics + + + | Address | [address] | | | [place] [address] | + + + | Home Phone | | + + + | Preferred Language | Unknown | + + + | Marital Status | | + + + | Methodist Affiliation | Unknown | + + + | Race | Unknown | + + + | Ethnic Group | Unknown | + + + Author + + + | Author | [facility] | | | and [place] | + + + | Organization | [facility] | | | and [place] | + + + | Address | Unknown | + + + | Phone | Unavailable | + + + Support + + + + + | Name | Relationship | Address | Phone | + + + + + | Sigrid Lennon | ECON | [address] | | | | | [place] [address] | | + + + + + | Valentín Saleh | ECON | [address] | | | | | [place] [address] | | + + + + + | Roberto Carlos Lennon | LEVI | Unknown | | + + + + + Care Team Providers + +------+ + | Care Dye Beck Reel Operator Name | Role | Phone | + +------+ + | Francois Pascal MD | PCP | | + +------+ + Encounter Details +--------+ + + + + | Date | Type | Department | Care Team | Description | +--------+ + + + + | 07/11/ | Anesthesia | [facility] | Franc[facility] | | | 2017 | Event | [facility] SUR[facility] | Kunal LANCE MD [address] | | | | | [address] [place] | [address] | | | | | [place] [address] | [place] [address] | | | | | [phone] | [phone] | | | | | | | | +--------+ + + + + Anesthesia Record + + + + + | Procedure Name | Responsible | Anesthesia Start | Anesthesia Stop Time | | | Anesthesiologist | Time | | + + + + + | [facility] | | | | | MANAGEMENT FOR | | | | | NEURAXIAL INFUSION | | | | + + + + + + + | No events on file. | + + +------+ | Meds | +------+ + + + No medications | on file. | + + + + + | No agents on file. | + + + + | No blood administrations on file. | + + +--------+ + +---------+ | Type | Details | Placement | Removal | +--------+ + +---------+ | Periph | 04/05/19; yes; Right; | 04/05/19 0000 by | | | eral | Antecubital; [id number] | Maria Isabel Petersen RN | | | IV | catheter system; 20 gauge; | | | | | Hematology, Chemistry, Blood | | | | | Culture, Other (see comment); no | | | | | longer indicated, removed per | | | | | policy/procedure | | | +--------+ + +---------+ documented in this encounter Social History + +-------+ +--------+------+ | Tobacco [...] [place], | | | | | | [place] [address] | | | | | | [phone] | | | | | | | | +--------+---------+ + + + documented as of this encounter Visit Diagnoses Not on filedocumented in this encounter"
--- OUTSIDE RECORDS SUMMARY | ~2019-09-12 | XMS | Encounter Summary ---
Demographics + + + | Address | [address] | | | [place] [address] | + + + | Home Phone | | + + + | Preferred Language | Unknown | + + + | Marital Status | | + + + | Congregational Affiliation | Unknown | + + + | Race | Unknown | + + + | Ethnic Group | Unknown | + + + Author + + + | Author | [facility] | | | and [place] | + + + | Organization | [facility] | | | and [place] | + + + | Address | Unknown | + + + | Phone | Unavailable | + + + Support + + + + + | Name | Relationship | Address | Phone | + + + + + | Sigrid Lennon | ECON | [address] | | | | | [place] [address] | | + + + + + | Valentín Saleh | ECON | [address] | | | | | [place] [address] | | + + + + + | Roberto Carlos Lennon | LEVI | Unknown | | + + + + + Care Team Providers + +------+ + | Care Product Promoter Sales Person Name | Role | Phone | + +------+ + | Vernon Pascal MD | PCP | | + +------+ + Reason for Visit Auth/Cert +--------+--------+ + + + + | [...] + + + + | 07/10/ | Anesthesia | [facility] DRAPER | Vernon Ring | | | 2017 | Event | [facility] | Kunal LANCE MD [address] | | | | | [address] | [address] [facility] | | | | | [place] | [place] [address] | | | | | [address] | [phone] | | | | | [phone] | | | +--------+ + + + + Anesthesia Record + + + + + | Procedure Name | Responsible | Anesthesia Start | Anesthesia Stop Time | | | Anesthesiologist | Time | | + + + + + | ESTEBAN TITUS | Vernon Ring | 07/10/16 1302 | 07/10/16 1445 | | FEMORAL TROCHANTERIC | II, MD | | | | NAIL (Left Hip) | | | | + + + + + +----+---+ + + | Da | T | Event | Comment | | te | i | | | | | m | | | | | e | | | +----+---+ + + | 05 | 1 | An Checkout | Pre-use anesthesia machine/equipment checkout. | | /0 | 2 | | | | 6/ | 1 | | | | 20 | 8 | | | | 17 | | | | +----+---+ + + | | 1 | | | | | 2 | | | | | 2 | | | | | 4 | | | +----+---+ + + | | 1 | An Start | Reassessment prior to anesthesia induction/procedure. | | | 3 | | | | | 0 | | | | | 2 | | | +----+---+ + + | | 1 | An Start | | | | 3 | Data | | | | 0 | | | | | 4 | | | +----+---+ + + | | 1 | Antibiotic | | | | 3 | Given | | | | 1 | | | | | 0 | | | +----+---+ + + | | 1 | Spinal Dose | | | | 3 | | | | | 1 | | | | | 6 | | | +----+---+ + + | | 1 | First | | | | 3 | Inc/Proc St | | | | 4 | | | | | 5 | | | +----+---+ + + | | 1 | [place] off | | | | 4 | | | | | 4 | | | | | 0 | | | +----+---+ + + | | 1 | AN No | TOF 4/4 with sustained tetanus. | | | 4 | Residual | | | | 4 | NMB | | | | 0 | | | +----+---+ + + | | 1 | An Stop | Patient handed off to recovery nurse. | | | 4 | | | | | 5 | | | +----+---+ + + +------+ | Meds | +------+ + + + | Name | Total | + + + | Phenylephrine 100mcg/mL SYRINGE | 450 mcg | + + + | dexmedetomidine (Bolus) | 25 mcg | + + + | propofol | 248.15 mg | + + + | ceFAZolin | 2 g | + + + | morphine (Intrathecal) | 200 mcg | + + + | bupivacaine 0.75% (Intrathecal) | 12 mg | + + + | NS (Infusion) | 1,000 mL | + + + | LR (Infusion) | 500 mL | + + + + + | Name | + + | N2O Flow Rate (L/Min) | + + | O2 Flow Rate (L/Min) | + + | Insp O2 | + + | Exp LISA | + + | Air Flow Rate (L/Min) | + + + + | No blood administrations on file. | + + +--------+ + + + | Type | Details | Placement | Removal | +--------+ + + + | Periph | 07/10/16; 0851; yes; Right; | 07/10/16 0851 by | 07/13/16 1654 by | | eral | Antecubital; [id number] | Sharon Vences RN | Brea Diop | | IV | catheter system; 20 gauge; short | | DEISY Gonzalez | | | term use; 07/13/16; 1654 | | | +--------+ + + + | Urethr | 07/10/16; 1129; indicated due to | 07/10/16 1129 by | 07/13/16 1030 by | | al | specific surgical procedure; All | mE Melendez, | Brea Diop | | Andres | elements; All elements; All | RN | DEISY Gonzalez | | er | elements; indwelling double lumen | | | | | catheter; 100% silicone; 16; | | | | | None; 1; 10; 10; none; drainage | | | | | bag to dependent drainage; short | | | | | term use; 07/13/16; 1030 | | | +--------+ + + + | Read | 07/10/16; 1418; Left; hip; | 07/10/16 1418 by | 07/13/16 165 by | | only - | expected removal post discharge; | Luther Perea RN | Brea Diop | | | 07/13/16; 1653 | | DEISY Gonzalez | | Incisi | | | | | on | | | | +--------+ + + + documented in this encounter Social History + [...] + + documented as of this encounter OR Notes Anesthesia Postprocedure Evaluation - Vernon Ring II, MD - 07/10/2016 4:31 PM PDTF ormatting of this note might be different from the original. ANESTHESIA POSTANESTHESIA EVALUATION Alyson Lennon 85 y.o. female 1930 [id number] Procedure(s) ORIF IM RODDING FEMORAL TROCHANTERIC NAIL (Left Hip) Cooperates? Yes Mental Status Performs simple tasks. Respiratory Satisfactory - Airway patent (self maintained). Cardiovascular Satisfactory Blood pressure and heart rate acceptable Temperature Satisfactory Pain Satisfactory N/V Control Satisfactory Hydration Satisfactory No signs of dehydration Complications None apparent Filed Vitals: 07/10/16 1515 07/10/16 1526 07/10/16 1545 BP: 165/53 172/61 153/79 Pulse: 64 63 68 Temp: 35.8 C (96.4 F) Resp: 11 12 12 SpO2: 99% 100% 94% Electronically signed by Vernon Ring II, MD 07/10/2016 16:31 [facility] nesthesia Pro cedure Notes - Vernon Ring II, MD - 07/10/2016 1:45 PM PDTAssociated Order(s): ANE EPIDURAL NOTENeuraxial Procedure Note Procedure: single-shot spinal anesthesia Indication: surgical anesthesia and postoperative analgesia Preprocedure check: patient identified, preevaluation including airway assessment complete, consent obtained, reassessment prior to procedure, monitors applied, timeout performed, ris ks/benefits discussed and procedure and rescue equipment checked Patient position: right lateral Preparation: chlorhexidine/isopropyl alcohol, Introducer used: yes Procedure level: L4-5 and L3-4 Approach: midline Needle: pencil-point Needle size: 22 g and 25 g Needle length: 9 cm Medication administered through: needle Negative findings: no blood aspirated, no paresthesia and no air aspirated Positive findings: CSF aspirated Test dose response: negative Attempts: >3 Ease of procedure: difficult Performing provider: VERNON RING II Comments: Difficult due to edema and sedation of patient, ultrasound utilized to find midli ne which made procedure possible Please see anesthesia record or flowsheet for vital sign documentation and see anesthesia r ecord or MAR for all medication documentation. Electronically Signed by: Vernon Ring II, MD ESig date/time: 017 13:45 nesthesia Pre procedure Evaluation - Vernon Ring II, MD - 07/10/2016 12:22 PM PDTFormatting of thi s note might be different from the original. ANESTHESIA PREANESTHESIA EVALUATION Alyson Lennon 85 y.o. female 1930 [id number] Procedure(s): ORIF IM RODDING FEMORAL TROCHANTERIC NAIL (Left ) Medical history, anesthesia, medications, allergy, NPO status verified histories reviewed. Review of Systems / Med History Cardiovascular (+) hypertension, CAD, past [place], CHF, congenital heart disease (+) PVD: Pulmonary (+) shortness of breath Psychology (+) depression Gastrointestinal/Hepatic (+) hyperlipidemia Endocrine (+) Diabetes: Other (+) arthritis Physical Exam Airway MP III, TM >3 FB, Mouth opening >2 FB. Neck: full ROM, extends >30 degrees. Jaw protru rohan normal. Dental ; Clearly infected dentition throughout (+) Chipped/Broken teeth, loose teeth, missing teeth and Poor dentition. CV Rhythm regular. Rate normal. Anesthesia Plan ASA 4 (uncontrolled hypertension, irreversible coronary disease, altered mentation)E Type: Spinal. Induction: Local anesthesia. Potential problems: None anticipated. Monitors: Standard ASA monitors. Consent statement: . Consenting person understands and agrees to proceed. Spinal preferable to assess mentation post-op.. Electronically Signed by: Vernon Ring II, MD ESi date/time: 07/10/2016 12:22 documented in this encounter Plan of Treatment +--------+---------+ + + + | Date | Type | Specialty | Care Team | Description | +--------+---------+ + + + | 12/06/ | Office | Cardiology | Stephenie Paul, | | | 2019 | Visit | | [address] | | | | | | [place], | | | | | | [place] [address] | | | | | | [phone] | | | | | | | | +--------+---------+ + + + documented as of this encounter Procedures + +--------+ + + + | Procedure Name | Priori | Date/Time | Associated Diagnosis | Comments | | | ty | | | | + +--------+ + + + | ANE EPIDURAL NOTE | Routin | 07/10/2016 | | Results for this | | | e | 1:47 PM | | procedure are in the | | | | PDT | | results section. | + +--------+ + + + documented in this encounter Results Anesthesia Epidural Note (07/10/2016 1:47 PM PDT) + + + | Narrative | Performed At | + + + | Vernon Ring II, MD 07/10/2016 13:47 Neuraxial Procedure | | | Note Procedure: single-shot spinal anesthesia Indication: | | | surgical anesthesia and postoperative analgesia Preprocedure check: | | | patient identified, preevaluation including airway assessment | | | complete, consent obtained, reassessment prior to procedure, | | | monitors applied, timeout performed, risks/benefits discussed and | | | procedure and rescue equipment checked Patient position: right | | | lateral Preparation: chlorhexidine/isopropyl alcohol, Introducer | | | used: yes Procedure level: L4-5 and L3-4 Approach: midline Needle: | | | pencil-point Needle size: 22 g and 25 g Needle length: 9 cm | | | Medication administered through: needle Negative findings: no blood | | | aspirated, no paresthesia and no air aspirated Positive findings: | | | CSF aspirated Test dose response: negative Attempts: >3 Ease of | | | procedure: difficult Performing provider: VERNON RING II | | | Comments: Difficult due to edema and sedation of patient, ultrasound | | | utilized to find midline which made procedure possible Please see | | | anesthesia record or flowsheet for vital sign documentation and see | | | anesthesia record or MAR for all medication documentation. | | | Electronically Signed by: Vernon Ring II, MD | | | ESig date/time: 07/10/2016 13:45 | | + + + documented in this encounter Visit Diagnoses Not on filedocumented in this encounter Administered Medications + +--------+ +-------+------+------+ | Medication Order | MAR | Action | Dose | Rate | Site | | | Action | Date | | | | + +--------+ +-------+------+------+ | bupivacaine 0.75%-dextrose | Given | 07/11/19 | 12 mg | | | | 8.25% (MARCAINE SPINAL) injection | | 17 1:16 | | | | | INTRATHECAL, PRN, Starting Sat | | PM PDT | | | | | 07/10/16 at 1316, Anesthesia | | | | | | | Intra-op | | | | | | + +--------+ +-------+------+------+ +---+---+ | | | +---+---+ + +-------+ +-----+---+---+ | ceFAZolin (ANCEF, KEFZOL) | Given | 07/11/19 | 2 g | | | | injection Intravenous, PRN, | | 17 1:04 | | | | | Starting 07/10/16 at 1304, | | PM PDT | | | | | Anesthesia Intra-op | | | | | | + +-------+ +-----+---+---+ +---+---+ | | | +---+---+ + +-------+ +--------+---+---+ | dexmedetomidine (PRECEDEX) in | Given | 07/11/19 | 25 mcg | | | | sodium chloride bolus infusion | | 17 1:04 | | | | | Intravenous, PRN, Starting Sat | | PM PDT | | | | | 07/10/16 at 1304, Anesthesia | | | | | | | Intra-op | | | | | | + +-------+ +--------+---+---+ +---+---+ | | | +---+---+ + +---------+ +---+---+---+ | lactated ringers (LR) infusion | New Bag | 07/11/19 | | | | | Intravenous, CONTINUOUS PRN, | | 17 2:18 | | | | | Starting 07/10/16 at 1418, | | PM PDT | | | | | Anesthesia Intra-op | | | | | | + +---------+ +---+---+---+ +---+---+ | | | +---+---+ + +-------+ +---------+---+---+ | morphine (PF) (DURAMORPH) 0.5 | Given | 07/11/19 | 200 mcg | | | | mg/mL injection INTRATHECAL, | | 17 1:33 | | | | | PRN, Pain, Starting 07/10/16 at | | PM PDT | | | | | 1333, Anesthesia Intra-op | | | | | | + +-------+ +---------+---+---+ +---+---+ | | | +---+---+ + +-------+ +---------+---+---+ | phenylephrine (JESSICA-SYNEPHRINE) | Given | 07/11/19 | 150 mcg | | | | 100 mcg/mL injection | | 17 2:18 | | | | | Intravenous, PRN, Starting Sat | | PM PDT | | | | | 07/10/16 at 1333, Anesthesia | | | | | | | Intra-op | | | | | | + +-------+ +---------+---+---+ +-------+ +---------+---+---+ | Given | 07/11/19 | 150 mcg | | | | | 17 2:05 | | | | | | PM PDT | | | | +-------+ +---------+---+---+ | Given | 07/11/19 | 150 mcg | | | | | 17 1:33 | | | | | | PM PDT | | | | +-------+ +---------+---+---+ +---+---+ | | | +---+---+ + +---------+ + + +---+ | propofol (DIPRIVAN) injection | New Bag | 07/11/19 | 50 | 21 mL/hr | | | Intravenous, CONTINUOUS PRN, | | 17 1:04 | mcg/kg/m | | | | Starting 07/10/16 at 1304, | | PM PDT | in | | | | Anesthesia Intra-op | | | | | | + +---------+ + + +---+ +---+---+ | | | +---+---+ + +---------+ +---+---+---+ | sodium chloride 0.9% (NS) | New Bag | 07/11/19 | | | | | infusion Intravenous, CONTINUOUS | | 17 1:02 | | | | | PRN, Starting 07/10/16 at | | PM PDT | | | | | 1302, Anesthesia Intra-op | | | | | | + +---------+ +---+---+---+ +---+---+ | | | +---+---+ documented in this encounter"
--- OUTSIDE RECORDS SUMMARY | ~2019-09-12 | XMS | Encounter Summary ---
Demographics + + + | Address | [address] | | | [place] [address] | + + + | Home Phone | | + + + | Preferred Language | Unknown | + + + | Marital Status | | + + + | Nondenominational Affiliation | Unknown | + + + | Race | Unknown | + + + | Ethnic Group | Unknown | + + + Author + + + | Author | [facility] | | | and [place] | + + + | Organization | [facility] | | | and [place] | + + + | Address | Unknown | + + + | Phone | Unavailable | + + + Support + + + + + | Name | Relationship | Address | Phone | + + + + + | Sigrid Lennon | ECON | [address] | | | | | [place] [address] | | + + + + + | Valentín Saleh | ECON | [address] | | | | | [place] [address] | | + + + + + | Roberto Carlos Lennon | LEVI | Unknown | | + + + + + Care Team Providers + +------+ + | Care Snipper Name | Role | Phone | + +------+ + | Francois Pascal MD | PCP | | + +------+ + Reason for Visit + +--------+ + | Reason | Onset | Comments | | | Date | | + +--------+ + | Medication | 08/20/ | | | Management | 2016 | | + +--------+ + Encounter Details +--------+ + + + + | Date | Type | Department | Care Team | Description | +--------+ + + + + | 08/20/ | Telephone | [facility] | Francois Pascal, | Medication | | 2016 | | MEDICINE [address] [place] [address] | [address] | Management | | | | [address] [place], | [address] [place], | | | | | [place] [address] | [place] [address] | | | | | [phone] | [phone] | | | | | | | [...] this encounter Miscellaneous Notes Telephone Encounter - Leanne Johnson RN - 08/20/2016 11:25 AM Vanessa Giang notified of patient having a UTI and that prescription for Bactrim DS sent to [facility].Electronically s igned by Leanne Johnson RN at 08/20/2016 11:27 AM PDTdocumented in this encounter Plan of Treatment +--------+---------+ + + + | Date | Type | Specialty | Care Team | Description | +--------+---------+ + + + | 12/06/ | Office | Cardiology | Stephenie Paul, | | | 2019 | Visit | | MD [address] | | | | | | [place], | | | | | | [place] [address] | | | | | | [phone] | | | | | | | | +--------+---------+ + + + documented as of this encounter Visit Diagnoses Not on filedocumented in this encounter"
--- OUTSIDE RECORDS SUMMARY | ~2019-09-12 | XMS | Encounter Summary ---
Demographics + + + | Address | [address] | | | [place] [address] | + + + | Home Phone | | + + + | Preferred Language | Unknown | + + + | Marital Status | | + + + | Orthodoxy Affiliation | Unknown | + + + | Race | Unknown | + + + | Ethnic Group | Unknown | + + + Author + + + | Author | [facility] | | | and [place] | + + + | Organization | [facility] | | | and [place] | + + + | Address | Unknown | + + + | Phone | Unavailable | + + + Support + + + + + | Name | Relationship | Address | Phone | + + + + + | Sigrid Lennon | ECON | [address] | | | | | [place] [address] | | + + + + + | Valentín Saleh | ECON | [address] | | | | | [place] [address] | | + + + + + | Roberto Carlos Lennon | LEVI | Unknown | | + + + + + Care Team Providers + +------+ + | Care Corpsman Name | Role | Phone | + +------+ + | No, Physician | PCP | Unavailable | + +------+ + Reason for Visit + + + | Reason | Comments | + + + | Medication Refill | | + + + Encounter Details +--------+--------+ + + + | Date | Type | Department | Care Team | Description | +--------+--------+ + + + | 01/12/ | Refill | [facility] | Francois Pascal, | Medication Refill | | 2013 | | [facility] | [address] | | | | | [address] | [address] [place], | | | | | [place] | [place] [address] | | | | | [address] | [phone] | | | | | [phone] | | | +--------+--------+ + + + [...] Telephone Encounter - Airam Menjivar RN - 01/14/2014 8:55 AM PSTMore refills than pro tocols allow. Okay to refill? 8 :56 AM PSTdocumented in this encounter Plan of Treatment +--------+---------+ + + + | Date | Type | Specialty | Care Team | Description | +--------+---------+ + + + | 12/06/ | Office | Cardiology | Stephenie Paul, | | | 2019 | Visit | | MD [address] | | | | | | [place], | | | | | | [place] [address] | | | | | | [phone] | | | | | | | | +--------+---------+ + + + documented as of this encounter Visit Diagnoses Not on filedocumented in this encounter"
--- OUTSIDE RECORDS SUMMARY | ~2019-09-12 | XMS | Encounter Summary ---
Demographics + + + | Address | [address] | | | [place] [address] | + + + | Home Phone | | + + + | Preferred Language | Unknown | + + + | Marital Status | | + + + | Worship Affiliation | Unknown | + + + | Race | Unknown | + + + | Ethnic Group | Unknown | + + + Author + + + | Author | [facility] | | | and [place] | + + + | Organization | [facility] | | | and [...] | | | | | [place] [address] | | + + + + + | Valentín Saleh | ECON | [address] | | | | | [place] [address] | | + + + + + | Roberto Carlos Lennon | LEVI | Unknown | | + + + + + Care Team Providers + +------+ + | Care Wet Pour Mixer Name | Role | Phone | + +------+ + | Francois Pascal MD | PCP | | + +------+ + Reason for Visit + + + | Reason | Comments | + + + | Medication Refill | | + + + Encounter Details +--------+ + + + + | Date | Type | Department | Care Team | Description | +--------+ + + + + | 08/03/ | Telephone | [facility] | Francois Pascal, | Medication Refill | | 2014 | | MEDICINE [place] | [address] | | | | | [address] | [address] [place], | | | | | [place] | [place] [address] | | | | | [address] | [phone] | | | | | [phone] | | | +--------+ + + + [...] this encounter Miscellaneous Notes Telephone Encounter - Epifanio Harris - 08/07/2014 11:01 AM PDTPatient scheduled or September 10 eleph one Encounter - Amarilys Mack CMA - 08/07/2014 10:01 AM PDTLM for patient to return my call elephone [place] Mildred Hoover RN - 08/05/2014 8:27 AM PDTCalled patient to scheduled 3 month f/u appt for September per plan of care. Left message to return call. documented in this encounter Plan of Treatment +--------+---------+ + + + | Date | Type | Specialty | Care Team | Description | +--------+---------+ + + + | 12/06/ | Office | Cardiology | Stephenie Paul, | | | 2019 | Visit | | MD [address] | | | | | | [place], | | | | | | [place] [address] | | | | | | [phone] | | | | | | | | +--------+---------+ + + + documented as of this encounter Visit Diagnoses Not on filedocumented in this encounter"
--- OUTSIDE RECORDS SUMMARY | ~2019-09-12 | XMS | Encounter Summary ---
Demographics + + + | Address | [address] | | | [place] [address] | + + + | Home Phone | | + + + | Preferred Language | Unknown | + + + | Marital Status | | + + + | Cheondoism Affiliation | Unknown | + + + | Race | Unknown | + + + | Ethnic Group | Unknown | + + + Author + + + | Author | [facility] | | | and [place] | + + + | Organization | [facility] | | | and [place] | + + + | Address | Unknown | + + + | Phone | Unavailable | + + + Support + + + + + | Name | Relationship | Address | Phone | + + + + + | Sigrid Lennon | ECON | [address] | | | | | [place] [address] | | + + + + + | Valentín Saleh | ECON | [address] | | | | | [place] [address] | | + + + + + | Roberto Carlos Lennon | LEVI | Unknown | | + + + + + Care Team Providers + +------+ + | Care Manager Manufacturing Name | Role | Phone | + [...] Description | +--------+--------+ + + + | 08/20/ | Refill | [facility] | Francois Pascal, | Medication Refill | | 2013 | | MEDICINE [place] | [address] | | | | | [address] | [address] [place], | | | | | [place] | [place] [address] | | | | | [address] | [phone] | | | | | [phone] | | | +--------+--------+ + + + [...] | | | | | | [place] [address] | | | | | | [phone] | | | | | | | | +--------+---------+ + + + documented as of this encounter Visit Diagnoses Not on filedocumented in this encounter"
--- OUTSIDE RECORDS SUMMARY | ~2019-09-12 | XMS | Encounter Summary ---
Demographics + + + | Address | [address] | | | [place] [address] | + + + | Home Phone | | + + + | Preferred Language | Unknown | + + + | Marital Status | | + + + | Spiritism Affiliation | Unknown | + + + | Race | Unknown | + + + | Ethnic Group | Unknown | + + + Author + + + | Author | [facility] | | | and [place] | + + + | Organization | [facility] | [...] | | | | | [place] [address] | | + + + + + | Valentín Saleh | ECON | [address] | | | | | [place] [address] | | + + + + + | Roberto Carlos Lennon | LEVI | Unknown | | + + + + + Care Team Providers + +------+ + | Care Lip And Gate Builder Name | Role | Phone | [...] + + | 07/10/ | Anesthesia | [facility] | Vernon Ring | | | 2017 | Event | [facility] | Kunal LANCE MD [address] | | | | | [address] | [address] [facility] | | | | | [place] | [place] [address] | | | | | [address] | [phone] | | | | | [phone] | | | +--------+ + + + [...] +----+---+ + + | | 1 | [place] [address] | | | | 4 | [...] 1654 by | | eral | Antecubital; [id number] | Sharon Vences RN | Brea Diop | | IV | catheter system; 20 gauge; short | | DEISY Gonzalez | | | term use; 07/13/16; 1654 | | | +--------+ + + + | Urethr | 07/10/16; 1129; indicated due to | 07/10/16 1129 by | 07/13/16 1030 by | | al | specific surgical procedure; All | Em Melendez, | Brea Diop | | Andres [...] EVALUATION Alyson Lennon 85 y.o. female 1930 [id number] Procedure(s) ORIF IM RODDING FEMORAL TROCHANTERIC NAIL [...] by Vernon Ring II, MD 07/10/2016 16:31 [facility] nesthesia Pro cedure Notes - Vernon Ring [...] EVALUATION Alyson Lennon 85 y.o. female 1930 [id number] Procedure(s): ORIF IM RODDING FEMORAL TROCHANTERIC NAIL (Left ) Medical history, anesthesia, medications, allergy, NPO status verified histories reviewed. Review of Systems / Med History Cardiovascular (+) hypertension, CAD, past [place], CHF, congenital heart disease (+) PVD: Pulmonary [...] [address] | | | | | | [place], | | | | | | [place] [address] | | | | | | [phone] | | | | | | | [...]
--- OUTSIDE RECORDS SUMMARY | ~2019-09-12 | XMS | Encounter Summary ---
Demographics + + + | Address | [address] | | | [place] [address] | + + + | Home Phone | | + + + | Preferred Language | Unknown | + + + | Marital Status | | + + + | Orthodoxy Affiliation | Unknown | + + + | Race | Unknown | + + + | Ethnic Group | Unknown | + + + Author + + + | Author | [facility] | | | and [place] | + + + | Organization | [facility] | | | and [...] | | | | | [place] [address] | | + + + + + | Valentín Saleh | ECON | [phone] | | | | | [place] [address] | | + + + + + | Roberto Carlos Lennon | LEVI | [place] | | + + + + + Care Team Providers + +------+ + | Care Oral Hygienist Name | Role | Phone | + +------+ + PCP | Unavailable | + +------+ + Encounter Details +--------+ + + + + | Date | Type | Department | Care Team | Description | +--------+ + + + + | 08/19/ | Hospital | [facility] | [place], | | | 1994 | Encounter | MED [facility] XRAY [address] [facility] | | | | | [place] | [place] | | | | | [place] [address] | [id number] | | | | | [phone] | | | +--------+ + + + [...] [place], | | | | | | [place] [address] | | | | | | [phone] | | | | | | | | +--------+---------+ + + + documented as of this encounter Visit Diagnoses Not on filedocumented in this encounter"
--- OUTSIDE RECORDS SUMMARY | ~2019-09-12 | XMS | Encounter Summary ---
Demographics + + + | Address | [address] | | | [place] [address] | + + + | Home Phone | | + + + | Preferred Language | Unknown | + + + | Marital Status | | + + + | Taoist Affiliation | Unknown | + + + | Race | Unknown | + + + | Ethnic Group | Unknown | + + + Author + + + | Author | [facility] | | | and [place] | + + + | Organization | [facility] | | | and [place] | + + + | Address | Unknown | + + + | Phone | Unavailable | + + + Support + + + + + | Name | Relationship | Address | Phone | + + + + + | Sigrid Lennon | ECON | [address] | | | | | [place] [address] | | + + + + + | Valentín Saleh | ECON | [phone] | | | | | [place] [address] | | + + + + + | Roberto Carlos Lennon | LEVI | Unknown | | + + + + + Care Team Providers + +------+ + | Care Training And Development Professional Name | Role | Phone | + +------+ + | Francois Pascal MD | PCP | | + +------+ + Encounter Details +--------+ + + + + | Date | Type | Department | Care Team | Description | +--------+ + + + + | 07/16/ | Hospital | [facility] | [place], | | | 2016 | Encounter | MED CTR LABORATORY | [address] | | | | | [address] | [address] [facility] | | | | | [place] | [address] [place] | | | | | [address] | [id number] | | | | | [phone] | | | +--------+ + + + [...] EC) 81 MG EC tablet | mouth Nehemiah thru | | | 12 | 6 [...] | | | | | | hyperglycemia ([facility]) | | | | | | + [...] | | | | | | mellitus) ([facility]) | | | | | | + [...] | | | | | | [place] [address] | | | | | | [phone] | | | | | | | | +--------+---------+ + + + documented as of this encounter Visit Diagnoses Not on filedocumented in this encounter"
--- OUTSIDE RECORDS SUMMARY | ~2019-09-12 | XMS | Encounter Summary ---
Demographics + + + | Address | [address] | | | [place] [address] | + + + | Home Phone [...] | | | | | [place] [address] | | + + + + + | Valentín Saleh | ECON | [address] | | | | | [place] [address] | | + + + + + | Roberto Carlos Lennon | LEVI | Unknown | | + + + + + Care Team Providers + +------+ + | Care Life Care Planner Name | Role | Phone | + +------+ + | Francois Pascal MD | PCP | | + +------+ + Reason for Visit + + + | Reason | Comments | + + + | Hematuria | | + + + Encounter Details +--------+ + + + + | Date | Type | Department | Care Team | Description | +--------+ + + + + | 11/09/ | Emergency | [facility] | David Cross, | Hematuria (Primary | | 2014 | | [facility] | [place] [address] | Dx); Vaginal | | | | [facility]TER [address] | [place], [place] | abrasion, initial | | | | [place], [place] | [address] | encounter; UTI | | | | [address] | | (lower urinary tract | | | | [phone] | | infection) | +--------+ + + + + Social [...] + + + | Blood Pressure | 125/63 | 11/09/2014 9:27 PM | | | | | PDT | | + + + + + | Pulse | 82 | 11/09/2014 9:27 PM | | | | | PDT | | + + + + + | Temperature | 36.2 C (97.2 F) | 11/09/2014 9:27 PM | | | | | PDT | | + + + + + | Respiratory Rate | 18 | 11/09/2014 9:27 PM | | | | | PDT | | + + + + + | Oxygen Saturation | 93% | 11/09/2014 9:27 PM | | | | | PDT | | + + + + + | Inhaled Oxygen | - | - | | | Concentration | | | | + + + + + | Weight | 70.3 kg (155 lb) | 11/09/2014 7:38 PM | | | | | PDT | | + + + + + | Height | 157.5 cm (5' 2") | 11/09/2014 7:38 PM | | | | | PDT | | + + + + + | Body Mass Index | 28.35 | 11/09/2014 7:38 PM | | | | | PDT | | + + + + + documented in this encounter Discharge Instructions AttachmentsThe following attachments cannot be sent through Care Everywhere.ABRASION (SRAVANI PLUMMER)HEMATURIA (CAP[place] VERDEAN)documented in this encounter Medications at Time of [...] TABLET BY | 90 | 3 | 02/16/20 | | | (NORVASC) 5 mg | MOUTH EVERY DAY | tablet | | 14 | [...] TABLET BY | 90 | 1 | 09/14/19 | | | tablet | MOUTH EVERY DAY | tablet | | 15 | 6 | + + + +---------+ + + | insulin glargine | INJECT 120 UNITS AT | 50 mL | 6 | 01/03/20 | | | (LANTUS) 100 | BEDTIME | | | 14 | 5 | | units/mL | | | | | | | injectionIndications | | | | | | | : Type II or | | | | | | | unspecified type | | | | | | | diabetes mellitus | | | | | | | without mention of | | | | | | | complication, not | | | | | | | stated as | | | | | | | uncontrolled | | | | | | + + + +---------+ + + | JANUVIA 100 MG | TAKE ONE TABLET BY | 90 | 1 | 05/31/19 | | | tablet | MOUTH EVERY DAY | tablet | | 15 | 5 | + + + +---------+ + + | levofloxacin | Take 1 tablet by | 7 | 0 | 11/10/19 | | | (LEVAQUIN) 500 mg | mouth Daily for 7 | tablet | | 15 | 5 | | tablet | days. | | | | | + + + +---------+ + + | methotrexate 2.5 | TAKE 5 TABLETS BY | 20 | 11 | 01/13/20 | | | mg tablet | MOUTH ONCE WEEKLY | tablet | | 14 | 5 | + + + +---------+ + + [...] TABLET BY | 30 | 6 | 03/20/19 | | | 500 mg CR tablet | MOUTH EVERY DAY | tablet | | 15 | 5 | + + + +---------+ + + | NOVOLOG 100 | INJECT 18 UNITS IN | 20 mL | 3 | 07/23/19 | | | UNIT/ML | THE MORNING, 23 | | | 15 | 5 | | injectionIndications | UNITS BEFORE LUNCH | | | | | | : DM (diabetes | AND 28 UNITS BEFORE | | | | | | mellitus) (HCC) | DINNER | | | | | + + + +---------+ + + | simvastatin | TAKE ONE-HALF TABLET | 45 | 3 | 10/08/19 | | | (ZOCOR) 40 mg tablet | BY MOUTH EVERY DAY | tablet | | 15 | 6 | + + + +---------+ + + documented as of this encounter ED Notes David Cross MD - 11/09/2014 7:31 PM PDTFormatting of this note might be different fr om the original. [facility] Alyson Lennon Emergency Department Encounter Note [address] [place] [address] PCP:Francois Pascal MD [phone] CHIEF COMPLAINT: Chief Complaint Patient presents with Hematuria ED Room: ED10/ED10 ED Triage Notes Hernandez Mcdonough RN 11/09/2014 19:38 C/o bleeding during urination, states it started yesterday, patient believed it was a vagi nal bleed when it first started but now states it happens when she urinates. HPI Alyson Lennon is a 83 y.o. female who presents to the Emergency Department with hematuria . The patient reports that she was apparently here in the hospital recently and was found t o have confusion, hyponatremia and acute on chronic renal failure with a UTI and was treated with Omnicef. She has since been having vaginal itching and was using a topical medication for vaginitis and she used a tube to insert the medication just prior to the bleeding. May be she lacerated something in the vagina she is thinking. Now she is having "quite a bit" o f blood from the urethra and pain in the lower abdomen. Feels fatigued. Has a fever on arr ival to the ER here. 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 infarction ([facility]) (1994&1996) CAR with Hx of Myocardial infarction Other abnormal clinical finding Verebral Compression Fractures Glossitis CAD (coronary artery disease) CHF (congestive heart failure) ([facility]) Arthritis Old ID (myocardial infarction) Carotid stenosis H/O ventricular septal defect repair DVT (deep vein thrombosis) in Chronic kidney disease, stage III (moderate) Vitamin D deficiency Osteoporosis OSTEOARTHRITIS, ANKLE, LEFT 01/21/2010 Squamous carcinoma 12/05/2012 Left ankle pain 07/30/2014 Past Surgical History Procedure Laterality Date Coronary artery bypass graft 1997 Grafting for Coronary Artery Bypass x 3 vessels and VSD Patch Cholecystectomy 1986 Left brest bi 1975 Previous inferior vena cava filter Ou cateract surgery 2007 Hiatal hernia repair 1985 Orif left ankle unstable trimalleolar fracture dislocation 03/24/2009 Breast surgery 1975 BIOPSY BRESAT, LEFT CURRENT MEDICATIONS Previous Medications ALLOPURINOL (ZYLOPRIM) 100 MG TABLET TAKE ONE TABLET BY MOUTH TWICE A DAY AMLODIPINE (NORVASC) 5 MG TABLET TAKE ONE TABLET BY MOUTH EVERY DAY ASPIRIN (ASPIRIN EC) 81 MG EC TABLET Take2 tablets by mouth Tuesday thru Tuesday and 32 5 mg on Tuesday ASPIRIN 325 MG TABLET Take 1 by mouth on Sundays CALCIUM CARBONATE-VITAMIN D 600-200 MG-UNIT TABS Take 2 tablets by mouth daily CINNAMON 500 MG CAPS Take 1 capsule by mouth 2 times daily. COLCHICINE 0.6 MG TABLET 1-2 tablets by mouth as needed FLUOCINONIDE (LIDEX) 0.05% CREAM as needed. FOLIC ACID 1 MG TABLET TAKE ONE TABLET BY MOUTH EVERY DAY INSULIN GLARGINE (LANTUS) 100 UNITS/ML INJECTION INJECT 120 UNITS AT BEDTIME JANUVIA 100 MG TABLET TAKE ONE TABLET BY MOUTH EVERY DAY METHOTREXATE 2.5 MG TABLET TAKE 5 TABLETS BY MOUTH ONCE WEEKLY METOPROLOL SUCCINATE (TOPROL-XL) 200 MG ER TABLET TAKE ONE TABLET BY MOUTH EVERY DAY MULTIVITAMIN (THERAGRAN) PER TABLET Take 1 by mouth daily NIACIN (NIASPAN) 500 MG CR TABLET TAKE ONE TABLET BY MOUTH EVERY DAY NOVOLOG 100 UNIT/ML INJECTION INJECT 18 UNITS IN THE MORNING, 23 UNITS BEFORE LUNCH AND 28 UNITS BEFORE DINNER SIMVASTATIN (ZOCOR) 40 MG TABLET TAKE ONE-HALF TABLET BY MOUTH EVERY DAY ALLERGIES Allergies Allergen Reactions Codeine Sulfate Nausea And Vomiting Darvon Nausea Only Estrogens Patient can't remember FAMILY AND SOCIAL HISTORY Family History Problem Relation Age of Onset Heart attack Mother possible VSD Heart disease Mother Other (See Comment) Father pneumonia Other (See Comment) Other family history of Airam's Disease Heart disease Sister Kidney disease Neg Hx History Social History Marital Status: Spouse Name: Sigrid Number of Children: 2 Years of Education: N/A Occupational History Social History Main Topics Smoking status: Never Smoker Smokeless tobacco: Never Used Alcohol Use: No Drug Use: No Sexual Activity: None Other Topics Concern None Social History Narrative Born in [facility] for 46 years. and Remarried 2 sons local. Patient has never smoked. Alcohol Use - no Exercise: None Caffeine: Decaf only Living Situation: Lives with Sigrid REVIEW OF SYSTEMS Review of Systems Constitutional: Positive for fever. Negative for chills, weight loss and malaise/fatigue. Eyes: Negative for blurred vision and photophobia. Cardiovascular: Negative for chest pain, palpitations and orthopnea. Gastrointestinal: Positive for abdominal pain. Genitourinary: Positive for urgency and hematuria. Negative for frequency and flank pain. As in history of present illness. A 10 system review was otherwise negative. PHYSICAL EXAM VITAL SIGNS: (first vital signs):Temp: (!) 38.2 C (100.7 F) Pulse: 72 Resp: 20 SpO2: 93 % BP: 142/63 mmHg Constitutional: female patient, No acute distress. Pleasant. Somewhat slow to respond. Alert and appropriate. HEENT: Atraumatic, PERRL, Oropharynx benign. Neck: Supple with full range of motion. No JVD, lymphadenopathy, or meningismus. Respiratory: Good air movement bilaterally. No wheezes, No, rales. Cardiovascular: Normal S1 S2. Abdomen: Soft, nontender. No rebound, guarding, or masses. Bowel tones normal. No pulsa tile masses : Within nurses the information scientist reexamines the genitals. The patient does have mild vagina l bleeding and an apparent abrasion to the vaginal wall on the right side. There is only mi nimal bleeding at this point. There is no other masses or tenderness to palpation appreciat ed.. Extremities: Nontender. No edema, no calf asymmetry. Present distal pulses. Skin: Warm, Dry, No rashes Neurologic: Alert & oriented. Cranial nerves II-XII intact. Gait and speech are normal. No focal deficits. Psychiatric: Normal mood, affect and judgement. No evidence of suicidal or homicidal idea tion LABS Results for orders placed or performed during the hospital encounter of 11/09/14 CBC w/ Auto Differential Result Value Ref Range WBC 13.6 (H) 4.0-11.0 K/uL RBC 3.95 3.70-5.20 M/uL Hgb 13.5 11.5-16.0 g/dL Hct 39.5 34.0-47.0 % MCV 100.1 83.0-101.0 fL MCH 34.2 28.0-35.0 pg MCHC 34.2 32.0-36.0 g/dL RDW-CV 13.9 <15.0 % Platelet Count 151 140-440 K/uL MPV 8.5 fL % Neutrophils 65.9 45.0-82.0 % % Lymphocytes 14.9 (L) 20.0-45.0 % % Monocytes 13.2 (H) 4.0-12.0 % % Eosinophils 4.8 0.0-5.0 % % Basophils 1.2 (H) 0.0-1.0 % Absolute Neutrophils 9.00 (H) 1.80-8.50 K/uL Absolute Lymphocytes 2.00 0.60-3.20 K/uL Absolute Monocytes 1.80 (H) 0.00-1.00 K/uL Absolute Eosinophils 0.70 (H) 0.00-0.40 K/uL Absolute Basophils 0.20 (H) 0.00-0.10 K/uL Comprehensive Metabolic Panel Result Value Ref Range NA 132 (L) 136-149 mmol/L K 4.1 3.5-5.1 mmol/L CL 96 (L) 98-109 mmol/L CO2 25 24-31 mmol/L ANION GAP 11 3-16 mmol/L GLUCOSE 185 (H) 70-109 mg/dL BUN 28 (H) 7-18 mg/dL Creatinine, Serum/Plasma 1.45 (H) 0.60-1.30 mg/dL eGFR if not 35 (L) >=60 mL/min/1.73m2 CALCIUM 9.3 8.3-10.5 mg/dL ALBUMIN 3.2 3.2-5.0 g/dL BILIRUBIN TOTAL 0.6 0.1-1.5 mg/dL Total protein 7.1 6.0-7.8 g/dL AST 24 10-42 U/L ALT 18 6-45 U/L ALK PHOS 50 40-110 U/L GLOBULIN 3.9 g/dL Albumin/Globulin ratio 0.8 BUN/CREA 19.3 Urinalysis with Microscopic with Culture if Indicated Result Value Ref Range COLOR Yellow Light Yellow, Yellow CLARITY Cloudy (A) Clear PH UA 6.0 5.0-8.0 Specific [place] 1.010 1.001-1.030 PROTEIN UA Negative Negative BLOOD UA Large (A) Negative GLUCOSE UA Negative Negative KETONES UA Negative Negative BILIRUBIN UA Negative Negative NITRITE UA Positive (A) Negative LEUKOCYTES ESTERASE UA Moderate (A) Negative UROBILINOGEN UA 0.2 E.U./dL 0.2 E.U./dL, 1.0 E.U./dL WBC UA 15-25 (A) 0-2 /HPF RBC UA >100 (A) 0-2 /HPF SQUAMOUS EPITHELIAL UA 5-10 (A) 0-2 /LPF BACTERIA UA 1+ (A) Negative /HPF EXTRA GOLD TOP TUBE Result Value Ref Range EGDT Done EXTRA GREEN TOP TUBE Result Value Ref Range EX GREEN TOP Done EXTRA BLUE TOP TUBE Result Value Ref Range Extra Blue Top Tube Done IMAGING STUDIES (X-Rays interpreted by ED Physician) Recent imaging: Ct Head Wo Contrast 10/17/2014 EXAM: CT HEAD WO CONTRAST dated 10/17/2014 3:46 PM HISTORY: FALL. ALTERED MENT AL STATUS. Comparison: None. TECHNIQUE: Noncontrast CT is performed from the top of calvar ium through the skull base. Coronal and sagittal reformats are performed. DOSE: DLP 515.47 mGy-cm FINDINGS: BRAIN: There is mild cerebral atrophy. There is appropriate associate d prominence of the ventricles.. No areas of increased attenuation to suggest intracranial hemorrhage. There is no mass, mass effect, or midline shift. There are no abnormal extra-a xial fluid or air collections. There is preservation of the friedman-white differentiation at t his time. There is moderate patchy to confluent decreased density in the periventricular an d subcortical white matter. Hypodensity in the right basal ganglia represents a prior lacun ar infarct. Extensive carotid artery calcifications in the cavernous region and atheroscler otic disease in the posterior circulation. SCALP/ CALVARIUM: The scalp and skull are inta ct and are unremarkable. SINUSES / ORBITS/ MASTOIDS: The visible mastoid air cells and para nasal sinuses are clear. The globes and retroconal contents are intact and are unremarkable . IMPRESSION - No acute intracranial process. 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 Dictated and Signed by: David Jon MD Electronically signed: 10/17/2014 4:[address] Renal Stone Wo Contrast 11/09/2014 DISCLAIMER: This is a preliminary report provided by [facility]. A final report is available at [facility]. CT ABDOMEN AND PELVIS WITHOUT CONTRAST (CPT) CT KUB CLINICAL INFORMATION: Hematuria. COMPARISON: None. PROCEDURE: Axial images through the abdomen and pelvis. Multiplanar reconstructions. FINDINGS: KIDNEYS, URETERS and BLADDER: There is no hydronephrosis or hydroureter. A 2 m m calcification at the lower pole the left kidney could be vascular or collecting system rel ated. No lower tract stone is identified. A 1.1 cm simple cyst is seen at the lateral uppe r pole of the right kidney. LUNG BASES: A 6 mm calcified granuloma is seen at the posterio r right lung base. There is evidence of prior median sternotomy. Surgical mesh material is seen anterior to the cardiac apex. ABDOMEN Liver and Biliary: The patient is status post cholecystectomy. No focal liver abnormality is identified. Pancreas, Spleen and Adrenals: N oncontrast images of the spleen, pancreas, and adrenal glands are unremarkable. ABDOMEN AN D PELVIS Bowel: There is no dilatation of large or small bowel to indicate obstruction. No bowel wall thickening is identified. A normal appendix is visualized. Vessels: An IVC filte r is in place. The aorta is normal in caliber. Lymph Nodes: No abdominal or pelvic lymphade nopathy is identified. Peritoneum and Retroperitoneum: No intraperitoneal free air, ascites or peritoneal mass. No significant retroperitoneal abnormality. PELVIS Genitourinary: The bladder is nondistended though could be mildly thickened. A probable calcified fibroid is s een at the anterior uterus. No adnexal mass is identified. BODY WALL Soft Tissues: Increa sed soft tissue attenuation in the anterior body wall is likely from subcutaneous injections . Bones: There is an old appearing T11 compression fracture. No acute bony abnormality or s uspicious bony lesion is identified. IMPRESSION: 1. 2 mm vascular calcification versus n onobstructing calculus at the left kidney with no lower tract stone or obstruction. 2. Equiv ocal bladder wall thickening could reflect cystitis. Report sent: 11/09/2014 8:36:00 PM ED COURSE & MEDICAL DECISION MAKING Pertinent Labs & Imaging studies were reviewed along with EMS notes and jail record s if applicable. (See chart for details) Medications and Allergy list reviewed. Nurses note and old records were reviewed ER course 19:31 - Patient care initiated. After introducing myself to the patient, I performed a car eful history and physical examination. This patient appears to have a superficial abrasion from insertion of a miconazole insertio n device. The patient however does have a fever and was recently treated for a complex UTI. I would question whether or not she has recurrent ear infection and/or an infected uretera l stone. She just finished a 10 day course of Omnicef. We will check a urinalysis, CBC CMP and obtain a CT renal stone 21:15. This point the patient does have hematuria although the CT scan does not disclose a ureteral stone. She has thickening of the bladder wall consistent with cystitis. She was recently treated with Omnicef so we will treat with Levaquin. We will send urine for cultur e. I'll have the patient follow-up with her regular doctor Last Set of Vital Signs: Temp: (!) 38.2 C (100.7 F) Pulse: 72 Resp: 20 SpO2: 93 % BP: 1 42/63 mmHg FINAL IMPRESSION 1. Hematuria 2. Vaginal abrasion, initial encounter 3. UTI (lower urinary tract infection) Disposition: Discharge home Condition: Stable Follow-up Information Follow up with Francois Pascal MD. Specialty: Family Medicine Contact information: [address] [place] [id number] New Prescriptions LEVOFLOXACIN (LEVAQUIN) 500 MG TABLET Take 1 tablet by mouth Daily for 7 days. Portions of this chart may have been created with [employer] voice recognition software. Occasi onal wrong-word or sound-alike substitutions may have occurred due to the inherent greene itations of voice recognition software. Please read the chart carefully and recognize, using context, where these substitutions have occurred. David Cross MD 11/09/142115 documen rachel in this encounter Miscellaneous Notes ED Triage Notes - Hernandez Mcdonough RN - 11/09/2014 7:37 PM PDTC/o bleeding during urinati on, states it started yesterday, patient believed it was a vaginal bleed when it first start ed but now states it happens when she urinates. documented in this encounter Plan of Treatment +--------+---------+ + + + | Date | Type | Specialty | Care Team | Description | +--------+---------+ + + + | 12/06/ | Office | Cardiology | Stephenie Paul, | | | 2019 | Visit | | MD Bob Sheehan | | | | | | [place], | | | | | | [place] [address] | | | | | | [phone] | | | | | | | | +--------+---------+ + + + documented as of this encounter Procedures + +--------+ + + + | Procedure Name | Priori | Date/Time | Associated Diagnosis | Comments | | | ty | | | | + +--------+ + + + | CULTURE, BLOOD | STAT | 11/09/2014 | | Results for this | | | | 8:51 PM | | procedure are in the | | | | PDT | | results section. | + +--------+ + + + | URINALYSIS WITH | STAT | 11/09/2014 | | Results for this | | MICROSCOPIC WITH | | 8:32 PM | | procedure are in the | | CULTURE IF INDICATED | | PDT | | results section. | + +--------+ + + + | CULTURE, URINE | Routin | 11/09/2014 | | Results for this | | | e | 8:32 PM | | procedure are in the | | | | PDT | | results section. | + +--------+ + + + | CT RENAL STONE WO | STAT | 11/09/2014 | | Results for this | | CONTRAST | | 8:14 PM | | procedure are in the | | | | PDT | | results section. | + +--------+ + + + | EXTRA GREEN TOP TUBE | Routin | 11/09/2014 | | Results for this | | | e | 8:07 PM | | procedure are in the | | | | PDT | | results section. | + +--------+ + + + | EXTRA GOLD TOP TUBE | Routin | 11/09/2014 | | Results for this | | | e | 8:07 PM | | procedure are in the | | | | PDT | | results section. | + +--------+ + + + | EXTRA BLUE TOP TUBE | Routin | 11/09/2014 | | Results for this | | | e | 8:07 PM | | procedure are in the | | | | PDT | | results section. | + +--------+ + + + | CULTURE, BLOOD | STAT | 11/09/2014 | | Results for this | | | | 8:07 PM | | procedure are in the | | | | PDT | | results section. | + +--------+ + + + | CBC W/AUTO | STAT | 11/09/2014 | | Results for this | | DIFFERENTIAL | | 8:05 PM | | procedure are in the | | | | PDT | | results section. | + +--------+ + + + | COMPREHENSIVE | STAT | 11/09/2014 | | Results for this | | METABOLIC PANEL | | 8:05 PM | | procedure are in the | | | | PDT | | results section. | + +--------+ + + + documented in this encounter Results Culture, Blood (11/09/2014 8:51 PM PDT) + + + + + + | Component | Value | Ref Range | Performed | Pathologist | | | | | At | Signature | + + + + + + | Culture | No Growth | | [facility] | | | | | | [facility] | | | | | | [facility] | | | | | | [facility] - | | | | | | LABORATORY | | + + + + + + + + | Specimen | + + | Blood - Peripheral | | blood specimen | | (specimen) | + + + + + + + | Performing | Address | City/State/Zipcode | Phone Number | | Organization | | | | + + + + + | [facility] | [address] | [place] | [phone] | | [facility] | | [address] | | | - LABORATORY | | | | + + + + + Culture, Urine (11/09/2014 8:32 PM PDT) + + + + + + | Component | Value | Ref Range | Performed | Pathologist | | | | | At | Signature | + + + + + + | Culture | 20,000 CFU/ml | | [facility] | | | | Escherichia coli | | [facility] | | | | | | [facility] | | | | | | [facility] - | | | | | | LABORATORY | | + + + + + + + + | Specimen | + + | Urine | + + + + +--------+ + | Organism | Antibiotic | Method | Susceptibility | + + +--------+ + | Escherichia coli | Ampicillin | | 4: Sensitive | + + +--------+ + | Escherichia coli | Ampicillin + | | 4: Sensitive | | | Sulbactam | | | + + +--------+ + | Escherichia coli | Cefazolin | | <=4: Sensitive | + + +--------+ + | Escherichia coli | Cefoxitin | | <=4: Sensitive | + + +--------+ + | Escherichia coli | Ceftazidime | | <=1: Sensitive | + + +--------+ + | Escherichia coli | Ceftriaxone | | <=1: Sensitive | + + +--------+ + | Escherichia coli | Ciprofloxacin | | <=0.25: Sensitive | + + +--------+ + | Escherichia coli | Ertapenem | | <=0.5: Sensitive | + + +--------+ + | Escherichia coli | Gentamicin | | <=1: Sensitive | + + +--------+ + | Escherichia coli | Meropenem | | <=0.25: Sensitive | + + +--------+ + | Escherichia coli | Nitrofurantoin | | <=16: Sensitive | + + +--------+ + | Escherichia coli | Tobramycin | | <=1: Sensitive | + + +--------+ + | Escherichia coli | Trimethoprim + | | <=20: Sensitive | | | Sulfamethoxazole | | | + + +--------+ + + + + + + | Performing | Address | City/State/Zipcode | Phone Number | | Organization | | | | + + + + + | [facility] | [address] | [place] | [phone] | | [facility] | | [address] | | | - LABORATORY | | | | + + + + + Urinalysis with Microscopic with Culture if Indicated (11/09/2014 8:32 PM PDT) + + + + + + | Component | Value | Ref Range | Performed | Pathologist | | | | | At | Signature | + + + + + + | Color, | Yellow | Light Yellow, | [facility] | | | Urine | | Yellow | [facility] | | | | | | [facility] | | | | | | CENTER - | | | | | | LABORATORY | | + + + + + + | Clarity, | Cloudy (A) | Clear | [facility] | | | Urine | | | [facility] | | | | | | [facility]ICAL | | | | | | CENTER - | | | | | | LABORATORY | | + + + + + + | pH, Urine | 6.0 | 5.0 - 8.0 | [facility] | | | | | | [facility] | | | | | | [facility]ICAL | | | | | | C[facility] - | | | | | | LABORATORY | | + + + + + + | Specific | 1.010 | 1.001 - 1.030 | [facility] | | | [place], | | | [facility] | | | Urine | | | MEDICAL | | | | | | CENTER - | | | | | | LABORATORY | | + + + + + + | Protein, | Negative | Negative | [facility] | | | Urine | | | [facility] | | | | | | MEDICAL | | | | | | CENTER - | | | | | | LABORATORY | | + + + + + + | Blood, | Large (A) | Negative | [facility] | | | Urine | | | [facility] | | | | | | MEDICAL | | | | | | CENTER - | | | | | | LABORATORY | | + + + + + + | Glucose, | Negative | Negative | [facility] | [...] + + + + | Nitrite, | Positive (A) | Negative | [facility] | | | Urine | | | [facility] | | | | | | MEDICAL | | | | | | CENTER - | | | | | | LABORATORY | | + + + + + + | Leukocyte | Moderate (A) | Negative | [facility] | | | Esterase, | | | [facility] | | | Urine | | | MEDICAL | | | | | | CENTER - | | | | | | LABORATORY | | + + + + + + | Urobilinoge | 0.2 E.U./dL | 0.2 E.U./dL, | [facility] | | | n, Urine | | 1.0 E.U./dL | [facility] | | | | | | MEDICAL | | | | | | CENTER - | | | | | | LABORATORY | | + + + + + + | White Blood | 15-25 (A) | 0 - 2 /HPF | [facility] | | | Cells, | | | [facility] | | | Urine | | | MEDICAL | | | | | | CENTER - | | | | | | LABORATORY | | + + + + + + | Red Blood | >100 (A) | 0 - 2 /HPF | [facility] | | | Cells, | | | [facility] | | | Urine | | | MEDICAL | | | | | | CENTER - | | | | | | LABORATORY | | + + + + + + | Squamous | 5-10 (A) | 0 - 2 /LPF | [facility] | | | Epithelial | | | [facility] | | | Cells, | | | MEDICAL | | | Urine | | | CENTER - | | | | | | LABORATORY | | + + + + + + | Bacteria, | 1+ (A) | Negative /HPF | [facility] | | [...] [address] | [place] | [phone] | | [facility] | | [address] | | | - LABORATORY | | | | + + + + + CT Renal Stone Wo Contrast (11/09/2014 8:14 PM PDT) + + | Specimen | + + | | + + + + + | Narrative | Performed At | + + + | CT RENAL STONE WO CONTRAST 11/09/2014 7:40 PM HISTORY: HEMATURIA. | [facility] | | COMPARISON: CT scan 07/27/2004. PROTOCOL: Axial images of the | | | abdomen and pelvis were obtained. Coronal and sagittal reformations | | | were acquired. FINDINGS: Mild scarring versus atelectasis is in | | | the lung bases. There is a 6 mm calcified granuloma in the right lung | | | base posterior aspect. Sternotomy wires are seen. Surgical material | | | is observed anterior to the cardiac apex. Extensive coronary | | | calcifications are visualized. Imaged liver demonstrates normal | | | parenchyma. There are cholecystectomy clips. Biliary ducts are | | | unremarkable. Imaged spleen is unremarkable. Moderate atrophy of | | | the pancreas is present with fat infiltration. Adrenals are normal. | | | There is a tiny exophytic cyst in the upper pole of the right | | | kidney that is too small to characterize and measures 1.1 cm. | | | Visualized right ureter is normal. There is a tiny 2 mm vascular | | | calcification in the inferior pole of the left kidney. Visualized | | | left ureter is normal. Stomach, small bowel, and terminal ileum | | | are normal. The appendix has a normal appearance. Colon is | | | unremarkable. Extensive atherosclerosis is present of the aorta. | | | Moderate to severe atherosclerosis is visualized of the iliac and | | | femoral arteries. There is no significant abnormality in the portal | | | veins, mesenteric veins, or systemic veins. There appears to be an | | | IVC filter. No enlarged lymph nodes are visualized within the | | | omentum or retroperitoneum. There is no evidence for ascites or | | | free air. Nonspecific mild wall thickening of the bladder is | | | present. There are calcifications of the uterus that likely | | | present fibroids. Increased soft tissue thickening and density are | | | visualized of the anterior body wall that could be from subcutaneous | | | injections. There is mild S-shaped scoliosis of the thoracolumbar | | | spine. Slight wedging is present of T10. There is a moderate | | | compression fracture of T11 that appears to be old. Moderate | | | spondylosis is observed. Moderate disc narrowing is at L3-4. Severe | | | disc narrowing are at L4-5 and L5-S1. Multilevel vacuum discs are | | | present. IMPRESSION - No evidence for obstructive uropathy. There | | | is a 2 mm calcification in the inferior pole of the left kidney that | | | appears to be vascular. Mild wall thickening of the bladder that | | | could be due to cystitis. Recommend clinical correlation. A | | | preliminary report was sent by [facility] on 11/09/2014 at 8:36 PM | | | with no significant discrepancy. Dictated and Signed by: James | | | MD Alex Electronically signed: 11/10/2014 1:32 PM | | + + + + + | Procedure Note | + + | Al, Rad Results In - 11/10/2014 1:[address] RENAL STONE WO CONTRAST 11/09/2014 | | 7:40 PMHISTORY: HEMATURIA.COMPARISON: CT scan 07/27/2004.PROTOCOL: Axial images of the | | abdomen and pelvis were obtained. Coronal andsagittal reformations were | | acquired.FINDINGS:Mild scarring versus atelectasis is in the lung bases. There is a 6 mm | | calcifiedgranuloma in the right lung base posterior aspect. Sternotomy wires are | | seen.Surgical material is observed anterior to the cardiac apex. Extensive | | coronarycalcifications are visualized.Imaged liver demonstrates normal parenchyma. There | | are cholecystectomy clips.Biliary ducts are unremarkable.Imaged spleen is unremarkable. | | Moderate atrophy of the pancreas is present withfat infiltration. Adrenals are | | normal.There is a tiny exophytic cyst in the upper pole of the right kidney that is | | toosmall to characterize and measures 1.1 cm. Visualized right ureter is normal.There is | | a tiny 2 mm vascular calcification in the inferior pole of the leftkidney. Visualized | | left ureter is normal.Stomach, small bowel, and terminal ileum are normal. The appendix | | has a normalappearance. Colon is unremarkable.Extensive atherosclerosis is present of | | the aorta. Moderate to severeatherosclerosis is visualized of the iliac and femoral | | arteries. There is nosignificant abnormality in the portal veins, mesenteric veins, or | | systemicveins. There appears to be an IVC filter.No enlarged lymph nodes are visualized | | within the omentum or retroperitoneum.There is no evidence for ascites or free | | air.Nonspecific mild wall thickening of the bladder is present.There are calcifications | | of the uterus that likely present fibroids.Increased soft tissue thickening and density | | are visualized of the anterior bodywall that could be from subcutaneous injections. | | There is mild S-shapedscoliosis of the thoracolumbar spine. Slight wedging is present of | | T10. There may moderate compression fracture of T11 that appears to be old. | | Moderatespondylosis is observed. Moderate disc narrowing is at L3-4. Severe | | discnarrowing are at L4-5 and L5-S1. Multilevel vacuum discs are present.IMPRESSION -No | | evidence for obstructive uropathy. There is a 2 mm calcification in theinferior pole of | | the left kidney that appears to be vascular.Mild wall thickening of the bladder that | | could be due to cystitis. Recommendclinical correlation.A preliminary report was sent by | | [facility] on 11/09/2014 at 8:36 PM with nosignificant discrepancy.Dictated and | | Signed by: James Johnson MD Electronically signed: 11/10/2014 1:32 PM | |Extensive atherosclerosis is present of the aorta. Moderate to severe | |atherosclerosis is visualized of the iliac and femoral arteries. There is no | |significant abnormality in the portal veins, mesenteric veins, or systemic | |veins. There appears to be an IVC filter. | | | |No enlarged lymph nodes are visualized within the omentum or retroperitoneum. | | | |There is no evidence for ascites or free air. | | | |Nonspecific mild wall thickening of the bladder is present. | | | |There are calcifications of the uterus that likely present fibroids. | | | |Increased soft tissue thickening and density are visualized of the anterior body | |wall that could be from subcutaneous injections. There is mild S-shaped | |scoliosis of the thoracolumbar spine. Slight wedging is present of T10. There is | |a moderate compression fracture of T11 that appears to be old. Moderate | |spondylosis is observed. Moderate disc narrowing is at L3-4. Severe disc | |narrowing are at L4-5 and L5-S1. Multilevel vacuum discs are present. | | | |IMPRESSION - | |No evidence for obstructive uropathy. There is a 2 mm calcification in the | |inferior pole of the left kidney that appears to be vascular. | | | |Mild wall thickening of the bladder that could be due to cystitis. Recommend | |clinical correlation. | | | |A preliminary report was sent by [facility] on 11/09/2014 at 8:36 PM with no | |significant discrepancy. | | | |Dictated and Signed by: James Johnson MD | | Electronically signed: 11/10/2014 1:32 PM | + + + +---------+ + + | Performing | Address | City/State/Zipcode | Phone Number | | Organization | | | | + +---------+ + + | [facility] | | | | + +---------+ + + EXTRA BLUE TOP TUBE (11/09/2014 8:07 PM PDT) + +-------+ + + + | Component | Value | Ref Range | Performed | Pathologist | | | | | At | Signature | + +-------+ + + + | Extra Blue | Done | | [facility] | | [...] + | [facility] | [address] | [place] | [phone] | | [facility] | | [address] | | | - LABORATORY | | | | + + + + + EXTRA GREEN TOP TUBE (11/09/2014 8:07 PM PDT) + +-------+ + + + [...] + | [facility] | [address] | [place] | [phone] | | [facility] | | [address] | | | - LABORATORY | | | | + + + + + EXTRA GOLD TOP TUBE (11/09/2014 8:07 PM PDT) + +-------+ + + + | Component | Value | Ref Range | Performed | Pathologist | | | | | At | Signature | + +-------+ + + + | Extra Gold | Done | | [facility] | | | Top Tube | | | [facility] | | | | | | MEDICAL [...] [address] | [place] | [phone] | | [facility] | | [address] | | | - LABORATORY | | | | + + + + + Culture, Blood (11/09/2014 8:07 PM PDT) + + + + + + | Component | Value | Ref Range | Performed | Pathologist | | | | | At | Signature | + + + + + + | Culture | No Growth | | [facility] | | | | | | [facility] | | | | | | MEDICAL | | | | | | CENTER - | | | | | | LABORATORY | | + + + + + + + + | Specimen | + + | Blood - Peripheral | | blood specimen | | (specimen) | + + + + + + + | Performing | Address | City/State/Zipcode | Phone Number | | Organization | | | | + + + + + | [facility] | [address] | [place] | [phone] | | [facility] | | [address] | | | - LABORATORY | | | | + + + + + Comprehensive Metabolic Panel (11/09/2014 8:05 PM PDT) + + + + + [...] + + + | Anion Gap | 11 | 3 - 16 mmol/L | [facility] | | | | | | [facility] | | | | | | MEDICAL | | | | | | CENTER - | | | | | | LABORATORY | | + + + + + + | Glucose | 185 (H) | 70 - 109 mg/dL | [facility] | | | | | | [facility] | | | | | | MEDICAL | | | | | | CENTER - | | | | | | LABORATORY | | + + + + + + | BUN | 28 (H) | 7 - 18 mg/dL | [facility] | | | | | | [facility] | | | | | | MEDICAL | | | | | | CENTER - | | | | | | LABORATORY | | + + + + + + | Creatinine | 1.45 (H) | 0.60 - 1.30 | [facility] | | | | | mg/dL | [facility] | | | | | | MEDICAL | | | | | | CENTER - | | | | | | LABORATORY | | + + + + + + | eGFR if not | 35 (L)Comment: | >=60 | [facility] | | | | GLOMERULAR FILTRATION | mL/min/1.73m2 | [facility] | | | BHUTANESE | RATE,ESTIMATED | | MEDICAL | | | | mL/min/[id number] than | | CENTER - | | [...] + + + + | Calcium | 9.3 | 8.3 - 10.5 | [facility] | | | | | mg/dL | [facility] | | | | | | MEDICAL | | | | | | CENTER - | | | | | | LABORATORY | | + + + + + + | Albumin | 3.2 | 3.2 - 5.0 g/dL | [facility] [...] + + + + | Total | 7.1 | 6.0 - 7.8 g/dL | [facility] | | | Protein | | | [facility] | | | | | | MEDICAL | | | | | | CENTER - | | | | | | LABORATORY | | + + + + + + | AST | 24 | 10 - 42 U/L | [facility] | | | | | | [facility] | | | | | | MEDICAL | | | | | | CENTER - | | | | | | LABORATORY | | + + + + + + | ALT | 18 | 6 - 45 U/L | [facility] | | | | | | [facility] | | | | | | MEDICAL | | | | | | CENTER - | | | | | | LABORATORY | | + + + + + + | Alkaline | 50 | 40 - 110 U/L | [facility] | | | Phosphatase | | | [facility] | | | | | | MEDICAL | | | | | | CENTER - | | | | | | LABORATORY | | + + + + + + | Globulin | 3.9 | g/dL | [facility] | | | | | | [facility] | | | | | | MEDICAL | | | | | | CENTER - | | | | | | LABORATORY | | + + + + + + | Albumin/Kalani | 0.8 | | [facility] | | | bulin Ratio | | | [facility] | | | | | | MEDICAL | | | | | | CENTER - | | | | | | LABORATORY | | + + + + + + | BUN/Creatin | 19.3 | | [facility] | | | ine [...] + + | [facility] | [address] | [place] | [phone] | | [facility] | | [address] | | | - LABORATORY | | | | + + + + + CBC w/ Auto Differential (11/09/2014 8:05 PM PDT) + + + + + + | Component | Value | Ref Range | Performed | Pathologist | | | | | At | Signature | + + + + + + | White Blood | 13.6 (H) | 4.0 - 11.0 K/uL | [facility] | | | Cells | | | [facility] | | | | | | MEDICAL | | | | | | CENTER - | | | | | | LABORATORY | | + + + + + + | Red Blood | 3.95 | 3.70 - 5.20 | [facility] | | | Cells | | M/uL | [facility] | | | | | | MEDICAL | | | | | | CENTER - | | | | | | LABORATORY | | + + + + + + | Hemoglobin | 13.5 | 11.5 - 16.0 | [facility] | | | | | g/dL | [facility] | | | | | | MEDICAL | | | | | | CENTER - | | | | | | LABORATORY | | + + + + + + | Hematocrit | 39.5 | 34.0 - 47.0 % | [facility] | | | | | | [facility] | | | | | | MEDICAL | | | | | | CENTER - | | | | | | LABORATORY | | + + + + + + | MCV | 100.1 | 83.0 - 101.0 fL | [facility] | | | | | | [facility] | | | | | | MEDICAL | | | | | | CENTER - | | | | | | LABORATORY | | + + + + + + | MCH | 34.2 | 28.0 - 35.0 pg | [facility] | | | | | | [facility] | | | | | | MEDICAL | | | | | | CENTER - | | | | | | LABORATORY | | + + + + + + | MCHC | 34.2 | 32.0 - 36.0 | [facility] | [...] + + + + | Platelet | 151Comment: Smear | 140 - 440 K/uL | [facility] | | | Count | review: PLTS appear | | [facility] | | | | normal | | MEDICAL | | | | | | CENTER - | | | | | | LABORATORY | | + + + + + + | MPV | 8.5 | fL | [facility] | | | | | | [facility] | | | | | | MEDICAL | | | | | | CENTER - | | | | | | LABORATORY | | + + + + + + | % | 65.9 | 45.0 - 82.0 % | [facility] | | | Neutrophils | | | [facility] | | | | | | MEDICAL | | | | | | CENTER - | | | | | | LABORATORY | | + + + + + + | % | 14.9 (L) | 20.0 - 45.0 % | [...] + + + | % Basophils | 1.2 (H) | 0.0 - 1.0 % | [facility] | | | | | | [facility] | | | | | | MEDICAL | | | | | | CENTER - | | | | | | LABORATORY | | + + + + + + | Absolute | 9.00 (H) | 1.80 - 8.50 | [facility] | | | Neutrophils | | K/uL | [facility] | | | | | | MEDICAL | | | | | | CENTER - | | | | | | LABORATORY | | + + + + + + | Absolute | 2.00 | 0.60 - 3.20 | [facility] | | | Lymphocytes | | K/uL | [facility] | | | | | | MEDICAL | | | | | | CENTER - | | | | | | LABORATORY | | + + + + + + | Absolute | 1.80 (H) | 0.00 - 1.00 | [facility] [...] + + + + | Absolute | 0.20 (H) | 0.00 - 0.10 | [facility] | | | Basophils | | K/uL | [facility] | [...] + | [facility] | [address] | [place] | [phone] | | [facility] | | [address] | | | - LABORATORY | | | | + + + + + documented in this encounter Visit Diagnoses + + | Diagnosis | + + | Hematuria - Primary Hematuria, unspecified | + + | Vaginal abrasion, initial encounter | + + | UTI (lower urinary tract infection) Urinary tract infection, site not specified | + + documented in this encounter Administered Medications + +--------+ +--------+------+------+ | Medication Order | MAR | Action | Dose | Rate | Site | | | Action | Date | | | | + +--------+ +--------+------+------+ | levofloxacin (LEVAQUIN) tablet | Given | 11/10/19 | 750 mg | | | | 750 mg 750 mg, Oral, ONCE, Sat | | 15 9:25 | | | | | 11/09/14 at 2120, For 1 dose, Give | | PM PDT | | | | | 2 hours before or 2 hours after | | | | | | | antacids, iron, or zinc., | | | | | | + +--------+ +--------+------+------+ +---+---+ | | | +---+---+ documented in this encounter
--- OUTSIDE RECORDS SUMMARY | ~2019-09-12 | XMS | Encounter Summary ---
Demographics + + + | Address | [address] | | | [place] [address] | + + + | Home Phone | | + + + | Preferred Language | Unknown | + + + | Marital Status | | + + + | Mandaeism Affiliation | Unknown | + + + | Race | Unknown | + + + | Ethnic Group | Unknown | + + + Author + + + | Author | [facility] | | | and [place] | + + + | Organization | [facility] | | | and [...] | | | | | [place] [address] | | + + + + + | Valentín Saleh | ECON | [id number] | | | | | [place] [address] | | + + + + + | Roberto Carlos Lennon | LEVI | Unknown | | + + + + + Care Team Providers + +------+ + | Care Guide Alpine Name | Role | Phone | + [...] Description | +--------+--------+ + + + | 03/20/ | Refill | [facility] | Stephenie Paul, | Medication Refill | | 2014 | | CARDIOLOGY [address] | MD [address] [place] | | | | | [place], | [place], | | | | | [place] [id number] | [place] [id number] | | | | | [phone] | [phone] | | | | | | | [...] | | | | | | [place] [id number] | | | | | | [phone] | | | | | | | | +--------+---------+ + + + documented as of this encounter Visit Diagnoses Not on filedocumented in this encounter"
--- OUTSIDE RECORDS SUMMARY | ~2019-09-12 | XMS | Encounter Summary ---
Demographics + + + | Address | [address] | | | [place] [address] | + + + | Home Phone | | + + + | Preferred Language | Unknown | + + + | Marital Status | | + + + | Hindu Affiliation | Unknown | + + + | Race | Unknown | + + + | Ethnic Group | Unknown | + + + Author + + + | Author | [facility] | | | and [place] | + + + | Organization | [facility] | | | and [...] | | | | | [place] [address] | | + + + + + | Valentín Saleh | ECON | [address] | | | | | [place] [address] | | + + + + + | Roberto Carlos Lennon | LEVI | [place] | | + + + + + Care Team Providers + +------+ + | Care Flame Planer Name | Role | Phone | + +------+ + PCP | Unavailable | + +------+ + Encounter Details +--------+ + + + + | Date | Type | Department | Care Team | Description | +--------+ + + + + | 11/07/ | Hospital | [facility] | | | | 1996 | Encounter | MED CTR XRAY [address] | | | | | | [place] | | | | | | [place] [address] | | | | | | [phone] | | | +--------+ + + + [...] [place], | | | | | | [place] [address] | | | | | | [phone] | | | | | | | | +--------+---------+ + + + documented as of this encounter Visit Diagnoses Not on filedocumented in this encounter"
--- OUTSIDE RECORDS SUMMARY | ~2019-09-12 | XMS | Encounter Summary ---
Demographics + + + | Address | [address] | | | [place] [address] | + + + | Home Phone | | + + + | Preferred Language | Unknown | + + + | Marital Status | | + + + | Taoism Affiliation | Unknown | + + + | Race | Unknown | + + + | Ethnic Group | Unknown | + + + Author + + + | Author | [facility] | | | and [place] | + + + | Organization | [facility] | | | and [...] | | | | | [place] [address] | | + + + + + | Valentín Saleh | ECON | [address] | | | | | [place] [address] | | + + + + + | Roberto Carlos Lennon | LEVI | Unknown | | + + + + + Care Team Providers + +------+ + | Care High School Science Teacher Name | Role | Phone | + +------+ + | Francois Pascal MD | PCP | | + +------+ + Reason for Visit +--------+ + | Reason | Comments | +--------+ + | Fall | | +--------+ + Encounter Details +--------+ + + + + | Date | Type | Department | Care Team | Description | +--------+ + + + + | 06/17/ | Emergency | [facility] | Jose G Reich, | Contusion of head, | | 2015 | | MED CTR EMERGENCY | [place] [address] | unspecified part of | | | | CENTER [address] | [place] | head, initial | | | | [place] | [address] | encounter (Primary | | | | [address] | | Dx) | | | | [phone] | | | +--------+ + + + [...] + + + | Blood Pressure | 137/62 | 06/18/2015 8:05 PM | | | | | PDT | | + + + + + | Pulse | 69 | 06/18/2015 8:05 PM | | | | | PDT | | + + + + + | Temperature | 36.5 C (97.7 F) | 06/18/2015 6:20 PM | | | | | PDT | | + + + + + | Respiratory Rate | 18 | 06/18/2015 8:05 PM | | | | | PDT | | + + + + + | Oxygen Saturation | 95% | 06/18/2015 8:05 PM | | | | | PDT | | + + + + + | Inhaled Oxygen | - | - | | | Concentration | | | | + + + + + | Weight | 68 kg (150 lb) | 06/18/2015 6:20 PM | | | | | PDT | | + + + + + | Height | 162.6 cm (5' 4.02") | 06/18/2015 6:20 PM | | | | | PDT | | + + + + + | Body Mass Index | 25.73 | 06/18/2015 6:20 PM | | | | | PDT | | + + + + + documented in this encounter Discharge Instructions AttachmentsThe following attachments cannot be sent through Care Everywhere.HEAD INJURIES: FIRST AID (ALGERIAN)documented in this encounter Medications at Time of [...] | | | | | | mellitus) ([facility]LY [facility]) | | | | | [...] documented as of this encounter ED Notes Jose G Reich MD - 06/18/2015 6:14 PM PDTFormatting of this note might be different fro m the original. eMERGENCY dEPARTMENT eNCOUnter CHIEF COMPLAINT Chief Complaint Patient presents with Fall HPI Alyson Lennon is a 84 y.o. female who presents with some very minimal head pain. She sta ashlee she fell approximately a week ago and has had a headache and some balance problems since then. She's had no vomiting or diarrhea. No paresthesias or weakness. No other associate d complaints or symptoms. She's had no fever or cough. She denies any neck pain. She stat es she misstepped a week ago and fell and hit her head. 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 infarction ([facility]) (1994&1996) CAR with Hx of Myocardial infarction Other abnormal clinical finding Verebral Compression Fractures Glossitis CAD (coronary artery disease) CHF (congestive heart failure) ([facility]) Arthritis Old NV (myocardial infarction) Carotid stenosis H/O ventricular septal defect repair DVT (deep vein thrombosis) in Chronic kidney disease, stage III (moderate) Vitamin D deficiency Osteoporosis OSTEOARTHRITIS, ANKLE, LEFT 01/21/2010 Squamous carcinoma 12/05/2012 Left ankle pain 07/30/2014 SURGICAL HISTORY Past Surgical History Procedure Laterality Date Coronary [...] TAKE ONE TABLET BY MOUTH EVERY DAY FUROSEMIDE (LASIX) 40 MG TABLET TAKE ONE TABLET BY MOUTH EVERY DAY INSULIN ASPART (NOVOLOG) 100 UNITS/ML INJECTION 33 units SQ TID prior to meals JANUVIA 100 MG TABLET TAKE ONE TABLET BY MOUTH EVERY DAY LANTUS 100 UNIT/ML INJECTION (VIAL) INJECT 120 UNITS AT BEDTIME LISINOPRIL (PRINIVIL, ZESTRIL) 20 MG TABLET 1 tablet Daily. METHOTREXATE 2.5 MG TABLET TAKE 5 TABLETS BY MOUTH ONCE WEEKLY METOPROLOL SUCCINATE (TOPROL-XL) 200 MG ER TABLET TAKE ONE TABLET BY MOUTH EVERY DAY MULTIVITAMIN (THERAGRAN) PER TABLET Take 1 by mouth daily NIACIN (NIASPAN) 500 MG CR TABLET TAKE ONE TABLET BY MOUTH EVERY DAY SIMVASTATIN (ZOCOR) 40 MG TABLET TAKE ONE-HALF TABLET BY MOUTH EVERY DAY TRAMADOL (ULTRAM) 50 MG TABLET Take 1 tablet by mouth every 8 hours as needed for Pain. ALLERGIES Allergies Allergen Reactions Codeine Sulfate Nausea And Vomiting Darvon Nausea Only Estrogens Patient can't remember Pneumococcal Vaccines Other (See Comments) Thinks it was a Prevnar, arm became red/sore/swollen FAMILY HISTORY Family History Problem Relation Age of Onset Heart attack Mother possible VSD Heart disease Mother Other (see comment) Father pneumonia Other (see comment) Other family history of Amador's Disease Heart disease Sister Kidney disease Neg Hx SOCIAL HISTORY History Social History Marital Status: Spouse Name: Sigrid Number of Children: 2 Years of Education: N/A Occupational History Social History Main Topics Smoking status: Never Smoker Smokeless tobacco: Never Used Alcohol Use: No Drug Use: No Sexual Activity: Not on file Other Topics Concern None Social History Narrative Born in [facility] for [facility] years. and Remarried 2 sons local. Patient has never smoked. Alcohol Use - no Exercise: None Caffeine: Decaf only Living Situation: Lives with Sigrid REVIEW OF SYSTEMS All systems reviewed and negative except as noted on HPI and/or limited by patient conditio n PHYSICAL EXAM VITAL SIGNS: Temp: 36.5 C (97.7 F) Pulse: 78 Resp: 20 SpO2: 97 % BP: 143/77 mmHg Constitutional: Well developed, Well nourished, No acute distress, Non-toxic appearance. HENT: Normocephalic, Atraumatic, Oropharynx moist, No oral exudates, Nose normal. Neck- No rmal range of motion, No tenderness, Supple, No stridor. Eyes: PERRL, EOMI, Conjunctiva normal, No discharge. Respiratory: Normal breath sounds, No respiratory distress, No wheezing, No chest tenderne ss. Cardiovascular: Normal S1, S2 GI: nondistended : not done Musculoskeletal: Intact distal pulses, No edema ,Integument: Warm, Dry, No erythema, No rash. EKG Not done RADIOLOGY Ct Head Wo Contrast 06/18/2015 DISCLAIMER: This is a preliminary report provided by [facility] [facility] KIRA Mendez. A final report is available at [facility]. CT HEAD WI THOUT CONTRAST CLINICAL INFORMATION: Head pain. COMPARISON: 10/17/2014. PROCEDURE: Axia l images were obtained through the head without IV contrast. Multiplanar reformations were obtained from the acquisition data. At least one of the following CT dose optimization te chniques were used: Automated exposure control; Adjustment of mA and/or kV according to brigido ent size; Use of iterative reconstruction technique. FINDINGS: When compared to the prior study, moderate to marked diffuse cerebral atrophy is stable. There is moderate to marked c hronic small vessel ischemic disease with several small lacunar infarcts. There is no midli ne shift or significant mass effect. There is no evidence of acute intracranial hemorrhage. Barros-white differentiation appears stable and symmetric. There is stable severe atheroscl erotic disease. There is no significant soft tissue hematoma or evidence of acute fracture. There is mild sinus mucosal thickening. The mastoid air cells are mostly clear. There is slight hyperostosis. IMPRESSION: 1. No evidence of acute intracranial abnormality. 2. St able moderate to marked diffuse cerebral atrophy with moderate to marked chronic small vesse l ischemic disease. 3. There is stable severe atherosclerotic disease. Dictated by: Oscar Almendarez Signed by: Oscar Wood Report sent: 06/18/2015 7:28:00 PM ED COURSE & MEDICAL DECISION MAKING Last Set of Vital Signs: Temp: 36.5 C (97.7 F) Pulse: 78 Resp: 20 SpO2: 97 % BP: 143/77 mmHg Pertinent Labs, Nurses Note, & Imaging studies reviewed. (See chart for details) This 84-year-old female with a ground-level fall who struck her head. CT scan is negative for anything acute. She is discharged home to follow-up with her regular doctor. FINAL IMPRESSION Head contusion LABS FROM THIS VISIT OR MOST RECENT ER VISIT: Results for orders placed or performed during the hospital encounter of 06/12/15 Protein/Creatinine Ratio, Urine Result Value Ref Range PROTEIN,RANDOM URINE 40 (H) <10 mg/dL Creatinine, Urine, Random 54 mg/dL PRO/CREA RATIO,URINE 0.74 (H) <0.20 mg/mg Jose G Reich MD 06/18/15 1951 document ed in this encounter Miscellaneous Notes ED Triage Notes - DEISY Rojas - 06/18/2015 6:18 PM PDTPt complains that she had a fall a we ek ago and she hit her head on her way home from visiting a friend. She did not lose conscio usness but she has balance issues with her ankle and lost her footing. Pt denies any issues from the fall. But her granddaughter suggested she get her head looked at to make sure there wasn't a head bleed. Pt denies dizziness or lightheadedness documented in this encounter Plan of Treatment +--------+---------+ + + + | Date | Type | Specialty | Care Team | Description | +--------+---------+ + + + | 12/06/ | Office | Cardiology | Stephenie Paul, | | | 2019 | Visit | | MD Bob Sheehan | | | | | | [place], | | | | | | [place] [address] | | | | | | [phone] | | | | | | | | +--------+---------+ + + + documented as of this encounter Procedures + +--------+ + + + | Procedure Name | Priori | Date/Time | Associated Diagnosis | Comments | | | ty | | | | + +--------+ + + + | CT HEAD WO CONTRAST | STAT | 06/18/2015 | | Results for this | | | | 7:07 PM | | procedure are in the | | | | PDT | | results section. | + +--------+ + + + documented in this encounter Results CT Head wo Contrast (06/18/2015 7:07 PM PDT) + + | Specimen | + + | | + + + + + | Narrative | Performed At | + + + | CT HEAD WO CONTRAST. 06/18/2015 7:05 PM HISTORY: FALL. Head | [facility] | | pain. COMPARISON: 10/17/2014 TECHNIQUE: Axial images were | | | obtained from vertex to skull base without IV contrast. Multiplanar | | | reformatted images created. RADIATION DOSE: DLP 654 mGy-cm | | | FINDINGS: There is hyperostosis frontalis interna, of incidental | | | note. No acute abnormality of the calvarium or visualized bones of | | | the face. The extracalvarial soft tissues are unremarkable. There is | | | prominence of the cerebral sulci as well as the lateral and third | | | ventricles, as can be seen with cerebral volume loss, not inconsistent | | | with the patient's age. There are areas of white matter | | | hypoattenuation, as can be seen with chronic microvascular ischemic | | | gliotic change. Small foci of hypoattenuation seen in bilateral | | | basal ganglia, compatible with old lacunar infarcts. The brain | | | otherwise shows normal morphology and barros-white matter | | | differentiation, without evidence of acute intracranial hemorrhage, | | | mass effect, extra-axial fluid collection, or acute large vessel | | | territory infarct. Basal cisterns are patent. There is heavy | | | calcification of the intracranial internal carotid arteries. | | | Calcification also seen in the vertebral arteries. The visualized | | | orbital contents are unremarkable. Mucosal thickening seen in the | | | right ethmoid sinus. The visualized mastoid air cells and middle ear | | | cavities are normally aerated. IMPRESSION - No evidence of acute | | | intracranial hemorrhage, mass effect, extra-axial fluid collection, | | | or acute large vessel territory infarct. Senescent changes. | | | Comment: Preliminary results of this exam were provided by the | | | after-hours radiology service on completion of the study and sent: | | | 06/18/2015 7:28:00 PM Dictated and Signed by: Nahun Keen MD | | | Electronically signed: 06/19/2015 8:55 AM | | + + + + + | Procedure Note | + + | Al, Rad Results In - 06/19/2015 8:[address] HEAD WO CONTRAST. 06/18/2015 7:05 PM | | | | HISTORY: FALL. Head pain. | | | | COMPARISON: 10/17/2014 | | | | TECHNIQUE: Axial images were obtained from vertex to skull base without IV | | contrast. Multiplanar reformatted images created. | | RADIATION DOSE: DLP 654 mGy-cm | | | | FINDINGS: | | There is hyperostosis frontalis interna, of incidental note. No acute | | abnormality of the calvarium or visualized bones of the face. | | The extracalvarial soft tissues are unremarkable. | | There is prominence of the cerebral sulci as well as the lateral and third | | ventricles, as can be seen with cerebral volume loss, not inconsistent with the | | patient's age. | | There are areas of white matter hypoattenuation, as can be seen with chronic | | microvascular ischemic gliotic change. Small foci of hypoattenuation seen in | | bilateral basal ganglia, compatible with old lacunar infarcts. | | The brain otherwise shows normal morphology and barros-white matter | | differentiation, without evidence of acute intracranial hemorrhage, mass effect, | | extra-axial fluid collection, or acute large vessel territory infarct. | | Basal cisterns are patent. There is heavy calcification of the intracranial | | internal carotid arteries. Calcification also seen in the vertebral arteries. | | The visualized orbital contents are unremarkable. | | Mucosal thickening seen in the right ethmoid sinus. | | The visualized mastoid air cells and middle ear cavities are normally aerated. | | | | IMPRESSION - | | No evidence of acute intracranial hemorrhage, mass effect, extra-axial fluid | | collection, or acute large vessel territory infarct. | | Senescent changes. | | | | | | | | Comment: Preliminary results of this exam were provided by the after-hours | | radiology service on completion of the study and sent: 06/18/2015 7:28:00 PM | | | | Dictated and Signed by: Nahun Keen MD | | Electronically signed: 06/19/2015 8:55 AM | + + + +---------+ + + | Performing | Address | City/State/Zipcode | Phone Number | | Organization | | | | + +---------+ + + | [facility] | | | | + +---------+ + + documented in this encounter Visit Diagnoses + + | Diagnosis | + + | Contusion of head, unspecified part of head, initial encounter - Primary | + + documented in this encounter
--- OUTSIDE RECORDS SUMMARY | ~2019-09-12 | XMS | Encounter Summary ---
Demographics + + + | Address | [address] | | | [place] [address] | + + + | Home Phone | | + + + | Preferred Language | Unknown | + + + | Marital Status | | + + + | Congregation Affiliation | Unknown | + + + | Race | Unknown | + + + | Ethnic Group | Unknown | + + + Author + + + | Author | [facility] | | | and [place] | + + + | Organization | [facility] | | | and [place] | + + + | Address | Unknown | + + + | Phone | Unavailable | + + + Support + + + + + | Name | Relationship | Address | Phone | + + + + + | Sigrid Lennon | ECON | [address] | | | | | [place] [address] | | + + + + + | Valentín Saleh | ECON | [address] | | | | | [place] [address] | | + + + + + | Roberto Carlos Lennon | LEVI | Unknown | | + + + + + Care Team Providers + +------+ + | Care In School Suspension Coordinator Name | Role | Phone | [...] Description | +--------+--------+ + + + | 02/05/ | Refill | [facility] | Stephenie Paul, | Medication Refill | | 2012 | | CARDIOLOGY [address] | MD [address] | | | | | [place], | [place], | | | | | [place] [address] | [place] [address] | | | | | [phone] | [phone] | | | | | | | [...] | | | | | | [place] [address] | | | | | | [phone] | | | | | | | | +--------+---------+ + + + documented as of this encounter Visit Diagnoses Not on filedocumented in this encounter"
--- OUTSIDE RECORDS SUMMARY | ~2019-09-12 | XMS | Encounter Summary ---
Demographics + + + | Address | [address] | | | [place] [address] | + + + | Home Phone [...] + | Author | [facility] | | | and [place] | + + + | Organization | [facility] | | | and [place] | + + + | Address | Unknown | + + + | Phone | Unavailable | + + + Support + + + + + | Name | Relationship | Address | Phone | + + + + + | Sigrid Lennon | ECON | [address] | | | | | [place] [address] | | + + + + + | Valentín Saleh | ECON | [address] | | | | | [place] [address] | | + + + + + | Roberto Carlos Lennon | LEVI | [place] | | + + + + + Care Team Providers + +------+ + | Care Mud Jack Nozzleman Name | Role | Phone | + +------+ + PCP | Unavailable | + +------+ + Encounter Details +--------+ + + + + | Date | Type | Department | Care Team | Description | +--------+ + + + + | 07/27/ | Hospital | [facility] | | | | 2005 | Encounter | MED CTR XRAY [address] | | | | | | [place] | | | | | | [place] [address] | | | | | | [phone] | | | +--------+ + + + [...] [place], | | | | | | [place] [address] | | | | | | [phone] | | | | | | | | +--------+---------+ + + + documented as of this encounter Visit Diagnoses Not on filedocumented in this encounter"
--- OUTSIDE RECORDS SUMMARY | ~2019-09-12 | XMS | Encounter Summary ---
Demographics + + + | Address | [address] | | | [place] [address] | + + + | Home Phone | | + + + | Preferred Language | Unknown | + + + | Marital Status | Single | + + + | Mormonism Affiliation | UNK | + + + | Race | White | + + + | Ethnic Group | Not or | + + + Author + + + | Author | [facility] | + + + | Organization | [facility] | + + + | Address | Unknown | + + + | Phone | Unavailable | + + + Support + + + + + | Name | Relationship | Address | Phone | + + + + + | Sigrid Lennon | LEVI | [address] | | | | | [place] [address] | | + + + + + | None None | ECON | Unknown | Unavailable | + + + + + Care Team Providers + +------+ + | Care Plumbing Designer Name | Role | Phone | + +------+ + PCP | Unavailable | + +------+ + Encounter Details +--------+ + + + + | Date | Type | Department | Care Team | Description | +--------+ + + + + | 01/13/ | Office | Otolaryngology | Fabio Blankenship, | | | 2004 | Visit-ECX | Head and Neck | MD [address] | | | | | Surgery Services at | [facility] [address] | | | | | [address] | [place], [place] | | | | | [address] | [address] | | | | | Physician's | [phone] | | | | | [place], [facility] floor | | | | | | [place], [place] | | | | | | [address] | | | | | | [phone] | | | +--------+ + + + [...]
--- OUTSIDE RECORDS SUMMARY | ~2019-09-12 | XMS | Encounter Summary ---
Demographics + + + | Address | [address] | | | [place] [address] | + + + | Home Phone | | + + + | Preferred Language | Unknown | + + + | Marital Status | | + + + | Jain Affiliation | Unknown | + + + | Race | Unknown | + + + | Ethnic Group | Unknown | + + + Author + + + | Author | [facility] | | | and [place] | + + + | Organization | [facility] | | | and [place] | + + + | Address | Unknown | + + + | Phone | Unavailable | + + + Support + + + + + | Name | Relationship | Address | Phone | + + + + + | Sigrid Lennon | ECON | [address] | | | | | [place] [address] | | + + + + + | Valentín Saleh | ECON | [address] | | | | | [place] [address] | | + + + + + | Roberto Carlos Lennon | LEVI | Unknown | | + + + + + Care Team Providers + +------+ + | Care Machine Pecan Picker Name | Role | Phone | + [...] Description | +--------+--------+ + + + | 08/17/ | Refill | [facility] | Analisa Jenkins, | Medication Refill | | 2012 | | MEDICINE [place] | [address] | | | | | [address] | [place] | | | | | [place] | [address] | | | | | [address] | | | | | | [phone] | | | +--------+--------+ + + + [...] | | | | | | [place] [address] | | | | | | [phone] | | | | | | | | +--------+---------+ + + + documented as of this encounter Visit Diagnoses Not on filedocumented in this encounter"
--- OUTSIDE RECORDS SUMMARY | ~2019-09-12 | XMS | Encounter Summary ---
Demographics + + + | Address | [address] | | | [place] [address] | + + + | Home Phone [...] | Author | [facility] | | | and [place] | + + + | Organization | [facility] | | | and [...] | | | | | [place] [address] | | + + + + + | Valentín Saleh | ECON | [address] | | | | | [place] [address] | | + + + + + | Roberto Carlos Lennon | LEVI | Unknown | | + + + + + Care Team Providers + +------+ + | Care Agricultural Economist Name | Role | Phone | + [...] Description | +--------+--------+ + + + | 11/21/ | Refill | [facility] [place] [facility] | Francois Pascal, | Medication Refill | | 2013 | | MEDICINE [facility] [place] | [address] | | | | | [address] [place], | [address] [place], | | | | | [place] [address] | [place] [address] | | | | | [phone] | [phone] | | | | | | | [...] | | | | | | [place] [address] | | | | | | [phone] | | | | | | | | +--------+---------+ + + + documented as of this encounter Visit Diagnoses Not on filedocumented in this encounter"
--- OUTSIDE RECORDS SUMMARY | ~2019-09-12 | XMS | Encounter Summary ---
Demographics + + + | Address | [address] | | | [place] [address] | + + + | Home Phone | | + + + | Preferred Language | Unknown | + + + | Marital Status | | + + + | Sikh Affiliation | Unknown | + + + | Race | Unknown | + + + | Ethnic Group | Unknown | + + + Author + + + | Author | [facility] | | | and [place] | + + + | Organization | [facility] | | | and [...] | | | | | [place] [address] | | + + + + + | Valentín aSleh | ECON | [address] | | | | | [place] [address] | | + + + + + | Roberto Carlos Lennon | LEVI | Unknown | | + + + + + Care Team Providers + +------+ + | Care Directional Survey Drafter Name | Role | Phone | + +------+ + | Francois Pascal MD | PCP | | + +------+ + Encounter Details +--------+ + + + + | Date | Type | Department | Care Team | Description | +--------+ + + + + | 11/29/ | Hospital | [facility] | Francois Pascal, | Leg edema, left | | 2018 | Encounter | MED CTR ULTR[facility]OUND | [address] | | | | | [address] [place] | [address], | | | | | [place] | [place] [address] | | | | | [address] | [phone] | | | | | [phone] | | | +--------+ + + + [...] + + + +---------+ + + | BD AUTOSHIELD DUO | | | 0 | 04/01/19 | | | 30G X 5 MM MISC | | | | 18 | 9 | + + + +---------+ [...] | | Take 1 tablet by | | 0 | | | | Zaraplv-Trziayvce-Sp | mouth Daily. | | | | 9 | | tamin D (CALCIUM 500 | | | | | | | PO) | | | | | | + + + +---------+ + + | cephalexin | One po qid | 28 | 0 | 11/24/19 | | | (KEFLEX) 500 MG | | tablet | | 18 | 8 | | TABSIndications: | | | | | | | Cellulitis and | | | | | | | abscess of foot | | | | | | + + + +---------+ + + | cholecalciferol | Take 1 capsule by | 30 | 11 | 10/14/19 | | | (VITAMIN D-3) 2,000 | mouth Daily. | capsule | | 18 | 8 | | units capsule | | | | | | + + + +---------+ + + | colchicine 0.6 mg | 1 tablet by mouth | 30 | 0 | 08/23/19 | | | tablet | twice daily as | tablet | | 18 | 9 | | | needed for gout | | | | | | | flare | | | | | + + + +---------+ + + | docusate sodium | Take 250 mg by mouth | | 0 | | | | (COLACE) 250 MG | 2 times daily. | | | | 9 | | capsule | | | | | | + + + +---------+ + + | escitalopram | Take 1 tablet by | 30 | 1 | 07/20/19 | | | (LEXAPRO) 10 mg | mouth Daily. | tablet | | 17 | 9 | | tabletIndications: | | | | | | | Reactive depression | | | | | | + + + +---------+ + + | folic acid 1 mg | Take 1 tablet by | 90 | 1 | 03/03/20 | | | tablet | mouth Daily. | tablet | | 16 | 9 | + + + +---------+ + + | furosemide (LASIX) | Take 1 tablet by | 7 | 0 | 11/17/19 | | | 20 mg | mouth Daily. | tablet | | 18 | 9 | | tabletIndications: | | | | | | | Leg edema, left | | | | | | + + + +---------+ + + | | Take 1 tablet by | 30 | 0 | 07/30/19 | | | HYDROcodone-acetamin | mouth every 4 hours | tablet | | 17 | 9 | | ophen (NORCO) 5-325 | as needed for Pain. | | | | | | mg per tablet | | | | | | + + + +---------+ + + | insulin aspart | Inject 4-12 Units | 15 pen | 4 | 10/26/19 | | | (NOVOLOG FLEXPEN) | under the skin 4 | | | 18 | 9 | | 100 units/mL | times daily (with | | | | | | injection | meals and nightly). | | | | | | penIndications: | | | | | | | [...] | | | | use of insulin ([facility]) | | | | | | + + + +---------+ + + | insulin glargine | 10 units every | 50 mL | 6 | 10/26/19 | | | (LANTUS) 100 | morning and 10 units | | | 18 | 9 | | units/mL injection | every evening [...] + + + +---------+ + + | Magnesium | Take 30 mLs by mouth | | 0 | | | | Hydroxide (MILK OF | as needed. | | | | 9 | | MAGNESIA PO) | | | | | | [...] + +---------+ + + | metoprolol | Take 1 tablet by | 90 | 2 | 04/07/19 | | | succinate | mouth Daily. | tablet | | 18 | 9 | | (TOPROL-XL) 100 mg | | | | | | | ER tablet | | | | | | + + + +---------+ + + | multivitamin | Take 1 by mouth | | 0 | 11/18/19 | | | (THERAGRAN) per | daily | | | 12 | 9 | | tablet | | | | | | + + + +---------+ + + | Nutritional | Take by mouth 2 | | 0 | | | | Supplements (ESPERANZA | times daily. | | | | 9 | | PO) | | | | | | + + + +---------+ + + | polyethylene | Take 1 diluted | | 0 | 07/14/19 | | | glycol (MIRALAX) | packet by mouth | | | 17 | 9 | | packet | Daily as needed. | | | | | + + + +---------+ + + | sodium phosphate | Place 133 mLs | | 0 | | | | (FLEET) enema | rectally Daily as | | | | 9 | | | needed for | | | | | | | Constipation. | | | | | + + + +---------+ + + | XARELTO 15 MG | Take 15 mg by mouth | | 0 | 04/10/19 | | | tablet | Daily (with dinner). | | | 18 | 9 | + + + +---------+ [...] [place], | | | | | | [place] [address] | | | | | | [phone] | | | | | | | | +--------+---------+ + + + documented as of this encounter Procedures + +--------+ + + + | Procedure Name | Priori | Date/Time | Associated Diagnosis | Comments | | | ty | | | | + +--------+ + + + | VAS LOWER EXTREMITY | Routin | 11/29/2017 | Leg edema, left | Results for this | | VENOUS LEFT | e | 12:40 PM | | procedure are in the | | | | PDT | | results section. | + +--------+ + + + documented in this encounter Results VAS Lower Extremity Venous Left (11/29/2017 12:40 PM PDT) + + | Specimen | + + | | + + + + + | Narrative | Performed At | + + + | EXAM: VAS LOWER EXTREMITY VENOUS LEFT dated 11/29/2017 12:10 PM. | [facility] | | HISTORY: asymmetric leg swelling. COMPARISON: None. TECHNIQUE: | | | Compression sonography was performed from the groin through the | | | popliteal fossa in the Left lower extremity. Grayscale and spectral | | | Doppler analysis is performed. FINDINGS: There is phasic | | | respiratory flow in all areas sampled. There is response to | | | Valsalva in the common femoral vein. There is response to calf | | | augmentation in all areas sampled. There is normal and complete | | | compressibility in all areas sampled. There are no visible thrombi. | | | There is respiratory phasic flow in the sampled portion of the | | | Right common femoral vein. Exam is somewhat limited because it | | | had to be performed in the patient's wheelchair. IMPRESSION - | | | No evidence for left lower extremity deep venous thrombosis. The | | | preliminary findings were conveyed to the ordering provider, by the | | | environmental research scientist, immediately following the exam. Dictated and | | | Signed by: David Jon MD Electronically signed: 11/29/2017 | | | 2:00 PM | | + + + + + | Procedure Note | + + | Al, Rad Results In - 11/29/2017 2:03 PM PDT EXAM: VAS LOWER EXTREMITY VENOUS LEFT | | dated 11/29/2017 12:10 PM.HISTORY: asymmetric leg swelling.COMPARISON: None.TECHNIQUE: | | Compression sonography was performed from the groin through thepopliteal fossa in the | | Left lower extremity. Grayscale and spectral Doppleranalysis is performed.FINDINGS: | | There is phasic respiratory flow in all areas sampled. There isresponse to Valsalva in | | the common femoral vein. There is response to calfaugmentation in all areas sampled. | | There is normal and complete compressibilityin all areas sampled. There are no visible | | thrombi.There is respiratory phasic flow in the sampled portion of the Right | | commonfemoral vein.Exam is somewhat limited because it had to be performed in the | | patient'swheelchair.IMPRESSION -No evidence for left lower extremity deep venous | | thrombosis. The preliminary findings were conveyed to the ordering provider, by | | thesonographer, immediately following the exam.Dictated and Signed by: David Jon, | | Electronically signed: 11/29/2017 2:00 PM | |in all areas sampled. There are no visible thrombi. | | | |There is respiratory phasic flow in the sampled portion of the Right common | |femoral vein. | | | |Exam is somewhat limited because it had to be performed in the patient's | |wheelchair. | | | |IMPRESSION - | | | |No evidence for left lower extremity deep venous thrombosis. | | | | The preliminary findings were conveyed to the ordering provider, by the | |environmental research scientist, immediately following the exam. | | | | | |Dictated and Signed by: David Jon MD | | Electronically signed: 11/29/2017 2:00 PM | + + + +---------+ + + | Performing | Address | City/State/Zipcode | Phone Number | | Organization | | | | + +---------+ + + | [facility] | | | | + +---------+ + + documented in this encounter Visit Diagnoses + + | Diagnosis | + + | Leg edema, left Edema | + + documented in this encounter"
--- OUTSIDE RECORDS SUMMARY | ~2019-09-12 | XMS | Encounter Summary ---
Demographics + + + | Address | [address] | | | [place] [address] | + + + | Home Phone [...] Author | [facility] | | | and [place] | + + + | Organization | [facility] [...] | | | | | [place] [address] | | + + + + + | Valentín Saleh | ECON | [address] | | | | | [place] [address] | | + + + + + | Roberto Carlos Lennon | LEVI | Unknown | | + + + + + Care Team Providers + +------+ + | Care Security Ambassador Name | Role | Phone | + +------+ + | Francois Pascal MD | PCP | | + +------+ + Encounter Details +--------+ + + + + | Date | Type | Department | Care Team | Description | +--------+ + + + + | 12/04/ | Hospital | [facility] | [place], | CHRONIC KIDNEY | | 2014 | Encounter | MED CTR LABORATORY | [address] | DISEASE STAGE III | | | | [address] [place] | [address] [facility] | (MODERATE); Vitamin | | | | [place], [place] | [address] [place], [place] | D deficiency | | | | [address] | [address] | | | | | [phone] | | | +--------+ + + + [...] TAKE ONE TABLET BY | 180 | 1 | 08/21/19 | | | (ZYLOPRIM) 100 mg | MOUTH TWICE A DAY | tablet | | 14 | 4 | | tablet | | | | | | + + + +---------+ + + | amLODIPine | TAKE ONE TABLET BY | 90 | 3 | 02/06/20 | | | (NORVASC) 5 mg | MOUTH EVERY DAY | tablet | | 13 | 4 | | tablet | | | | [...] TABLET BY | 90 | 1 | 06/26/19 | | | tablet | MOUTH EVERY DAY | tablet | | 14 | 4 | + + + +---------+ + + | furosemide (LASIX) | TAKE ONE TABLET BY | 90 | 3 | 08/10/19 | | | 40 mg tablet | MOUTH EVERY DAY | tablet | | 14 | 5 | + + + +---------+ + + | JANUVIA 100 MG | TAKE ONE TABLET BY | 90 | 1 | 11/22/19 | | | tablet | MOUTH EVERY DAY | tablet | | 14 | 5 | + + + +---------+ + + | LANTUS 100 UNIT/ML | INJECT 110 UNITS AT | 50 mL | 6 | 03/27/19 | | | injection | BEDTIME | | | 14 | 4 | + + + +---------+ + + | lisinopril | TAKE ONE TABLET BY | 90 | 3 | 08/16/19 | | | (PRINIVIL,ZESTRIL) | MOUTH EVERY DAY | tablet | | 14 | 5 | | 40 MG tablet | | | | | | + + + +---------+ + + | methotrexate 2.5 | 5 po once weekly | 20 | 11 | 12/27/19 | | | mg | | tablet | | 13 | 4 | | tabletIndications: | | | | | | | Glossitis | | | | | | + + + +---------+ + + | metoprolol | TAKE ONE TABLET BY | 90 | 3 | 09/15/19 | | | (TOPROL-XL) 200 MG | MOUTH EVERY DAY | tablet | | 14 | 5 | | 24 hr tablet | | | | | | [...] TABLET BY | 30 | 6 | 08/10/19 | | | 500 mg CR tablet | MOUTH EVERY DAY | tablet | | 14 | 4 | + + + +---------+ + + | NOVOLOG 100 | INJECT DIRECTED, | 20 mL | 5 | 09/15/19 | | | UNIT/ML injection | 15 UNITS IN THE | | | 14 | 4 | | | MORNING, 20 UNITS | | | | | | | BEFORE LUNCH AND 25 | | | | | | | UNITS BEFORE DINNER. | | | | | + + + +---------+ + + | simvastatin | TAKE ONE-HALF TABLET | 135 | 1 | 09/07/19 | | | (ZOCOR) 40 mg tablet | BY MOUTH EVERY DAY | tablet | | 14 | 5 [...] [place], | | | | | | [place] [address] | | | | | | [phone] | | | | | | | | +--------+---------+ + + + documented as of this encounter Procedures + +--------+ + + + | Procedure Name | Priori | Date/Time | Associated Diagnosis | Comments | | | ty | | | | + +--------+ + + + | MICROALBUMIN/CREATIN | Routin | 12/04/2013 | CHRONIC KIDNEY | Results for this | | INE RATIO, URINE | e | 9:16 AM | DISEASE STAGE III | procedure are in the | | TEST | | PDT | (MODERATE) | results section. | + +--------+ + + + | VITAMIN D, | Routin | 12/04/2013 | CHRONIC KIDNEY | Results for this | | DEFICIENCY SCREEN | e | 9:12 AM | DISEASE STAGE III | procedure are in the | | (25-HYDROXY) | | PDT | (MODERATE) Vitamin | results section. | | | | | D deficiency | | + +--------+ + + + | PARATHYROID HORMONE, | Routin | 12/04/2013 | CHRONIC KIDNEY | Results for this | | INTACT | e | 9:12 AM | DISEASE STAGE III | procedure are in the | | | | PDT | (MODERATE) | results section. | + +--------+ + + + | RENAL FUNCTION PANEL | Routin | 12/04/2013 | CHRONIC KIDNEY | Results for this | | | e | 9:12 AM | DISEASE STAGE III | procedure are in the | | | | PDT | (MODERATE) | results section. | + +--------+ + + + documented in this encounter Results Microalbumin/Creatinine Ratio, Urine (12/04/2013 9:16 AM PDT) + + + + + + | Component | Value | Ref Range | Performed | Pathologist | | | | | At | Signature | + + + + + + | Microalbumi | 1.4Comment: Notice: New | <1.8 mg/dL | [facility] | | | n, Urine, | unit (mg/dl) and | | [facility] | | | Random | reference range as of | | MEDICAL | | | | May 12, 2013. | | CENTER - | | | | | | LABORATORY | | + + + + + + | Creatinine, | 103 | mg/dL | [facility] | | | Urine, | | | [facility] | | | Random | | | MEDICAL | | | | | | CENTER - | | | | | | LABORATORY | | + + + + + + | Microalbumi | 14 | <30 mg/g | [facility] | | | n/Creatinin | | | [facility] | | | ratio | | | MEDICAL | | | [...] + | [facility] | [address] | [place] | [phone] | | [facility] | | [address] | | | - LABORATORY | | | | + + + + + | [facility] | [address] | [place], [place] | | | [facility] | | [address] | | | - LABORATORY | | | | + + + + + Vitamin D, 25-Hydroxy (12/04/2013 9:12 AM PDT) + +-------+ + + + | Component | Value | Ref Range | Performed | Pathologist | | | | | At | Signature | + +-------+ + + + | Vitamin D, | 56 | 30 - 80 ng/mL | [facility] | | | 25 Hydroxy | | | [facility] | | | | | | MEDICAL [...] + | [facility] | [address] | [place], [place] | [phone] | | [facility] | | [address] | | | - LABORATORY | | | | + + + + + | [facility] | [address] | [place], [place] | | | [facility] | | [address] | | | - LABORATORY | | | | + + + + + Parathyroid Hormone, Intact (12/04/2013 9:12 AM PDT) + +-------+ + + + | Component | Value | Ref Range | Performed | Pathologist | | | | | At | Signature | + +-------+ + + + | PTH Intact | 21 | 12 - 88 pg/mL | [facility] | | | | | [...] + | [facility] | [address] | [place] | [phone] | | [facility] | | [address] | | | - LABORATORY | | | | + + + + + | [facility] | [address] | [place] | | | [facility] | | [address] | | | - LABORATORY | | | | + + + + + Renal Function Panel (12/04/2013 9:12 AM PDT) + + + + + [...] K | 4.0 | 3.5 - 5.1 | [facility] | | | | | mmol/L | [facility] | | | | | | MEDICAL | | | | | | CENTER - | | | | | | LABORATORY | | + + + + + + | Cl | 101 | 98 - 109 mmol/L | [facility] [...] + | Anion Gap | 9 | 3 - 16 mmol/L | [facility] | | | | | | [facility] | | | | | | MEDICAL | | | | | | CENTER - | | | | | | LABORATORY | | + + + + + + | Glucose | 329 (H) | 70 - 109 mg/dL | [facility] | | | | | | [facility] | | | | | | MEDICAL | | | | | | CENTER - | | | | | | LABORATORY | | + + + + + + | BUN | 35 (H) | 7 - 18 mg/dL | [facility] | | | | | | [facility] | | | | | | MEDICAL | | | | | | CENTER - | | | | | | LABORATORY | | + + + + + + | Creatinine | 1.43 (H) | 0.60 - 1.30 | [facility] | | | | | mg/dL | [facility] | | | | | | MEDICAL | | | | | | CENTER - | | | | | | LABORATORY | | + + + + + + | eGFR if not | 35 (L)Comment: | >=60 | [facility] | | | | GLOMERULAR FILTRATION | mL/min/1.73m2 | [facility] | | | FILIPINO | RATE,ESTIMATED | | MEDICAL | | | | mL/min/1.11w6Htcu than | | CENTER - | | [...] + + + + | Calcium | 9.7 | 8.3 - 10.5 | [facility] | | | | | mg/dL | [facility] | | | | | | MEDICAL | | | | | | CENTER - | | | | | | LABORATORY | | + + + + + + | Albumin | 3.7 | 3.2 - 5.0 g/dL | [facility] | | | | | | [facility] | | | | | | MEDICAL | | | | | | CENTER - | | | | | | LABORATORY | | + + + + + + | Phosphorus | 4.4 | 2.5 - 4.6 mg/dL | [facility] | | | | | | [facility] | | | | | | MEDICAL | | | | | | CENTER - | | | | | | LABORATORY | | + + + + + + | BUN/Creatin | 24.5 | | [facility] | | | ine [...] + | [facility] | [address] | [place] | [phone] | | [facility] | | [address] | | | - LABORATORY | | | | + + + + + | [facility] | [address] | [place] | | | [facility] | | [address] [place] [address] | | | - LABORATORY | | | | + + + + + documented in this encounter Visit Diagnoses + + | Diagnosis | + + | CHRONIC KIDNEY DISEASE STAGE III (MODERATE) Chronic kidney disease, Stage III | | (moderate) | + + | Vitamin D deficiency Unspecified vitamin D deficiency | + + documented in this encounter"
--- OUTSIDE RECORDS SUMMARY | ~2019-09-12 | XMS | Encounter Summary ---
Demographics + + + | Address | [address] | | | [place] [address] | + + + | Home Phone | | + + + | Preferred Language | Unknown | + + + | Marital Status | | + + + | Latter-Day Affiliation | Unknown | + + + | Race | Unknown | + + + | Ethnic Group | Unknown | + + + Author + + + | Author | [facility] | | | and [place] | + + + | Organization | [facility] | | | and [place] | + + + | Address | Unknown | + + + | Phone | Unavailable | + + + Support + + + + + | Name | Relationship | Address | Phone | + + + + + | Sigrid Lennon | ECON | [address] | | | | | [place] [address] | | + + + + + | Valenítn Saleh | ECON | [address] | | | | | [place] [address] | | + + + + + | Roberto Carlos Lennon | LEVI | Unknown | | + + + + + Care Team Providers + +------+ + | Care Bundle Sorter Name | Role | Phone | + +------+ + | Frnacois Pascal MD | PCP | | + +------+ + Reason for Visit + +--------+ + | Reason | Onset | Comments | | | Date | | + +--------+ + | Medication Refill | 10/30/ | | | | 2018 | | + +--------+ + Encounter Details +--------+--------+ + + + | Date | Type | Department | Care Team | Description | +--------+--------+ + + + | 10/30/ | Refill | [facility] | Francois Pascal, | Medication Refill | | 2018 | | [facility] | [address] | | | | | [address] | [address] [place], | | | | | [place] | [place] [address] | | | | | [address] | [phone] | | | | | [phone] | | | +--------+--------+ + + + [...] documented as of this encounter Miscellaneous Notes Addendum Note - Beatrice Ashley RN - 10/30/2018 2:17 PM PDT Addended by: BEATRICE HAYWARD on: 10/30/2018 14:17 Modules accepted: Orders elephone En counter - Beatrice Ashley RN - 10/30/2018 1:57 PM PDTFidel Hunt, calls asking whi ch glucose meter patient uses. Could not find even in history. Told Gilbert would send script for glucose test strips and suggested he call caregiver to find out which meter he uses. He agrees to this. Refilled electronically. documented in this encounter Plan of Treatment +--------+---------+ + + + | Date | Type | Specialty | Care Team | Description | +--------+---------+ + + + | 12/06/ | Office | Cardiology | Stephenie Paul, | | | 2019 | Visit | | [facility] [address] | | | | | | 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
--- OUTSIDE RECORDS SUMMARY | ~2019-09-12 | XMS | Encounter Summary ---
Demographics + + + | Address | [address] | | | [place] [address] | + + + | Home Phone | | + + + | Preferred Language | Unknown | + + + | Marital Status | | + + + | Jehovah'S Witness Affiliation | Unknown | + + + | Race | Unknown | + + + | Ethnic Group | Unknown | + + + Author + + + | Author | [facility] | | | and [place] | + + + | Organization | [facility] | | | and [place] | + + + | Address | Unknown | + + + | Phone | Unavailable | + + + Support + + + + + | Name | Relationship | Address | Phone | + + + + + | Sigrid Lennon | ECON | [address] | | | | | [place] [address] | | + + + + + | Valentín aSleh | ECON | [address] | | | | | [place] [address] | | + + + + + | Roberto Carlos Lennon | LEVI | [place] | | + + + + + Care Team Providers + +------+ + | Care Brakes Inspector Name | Role | Phone | + +------+ + PCP | Unavailable | + +------+ + Encounter Details +--------+ + + + + | Date | Type | Department | Care Team | Description | +--------+ + + + + | 02/20/ | Hospital | [facility] | Farncois Pascal, | | | 2008 | Encounter | MED CTR XRAY [address] | [address] | | | | | [place] | [address] [place], | | | | | [place] [address] | [place] [address] | | | | | [phone] | [phone] | | | | | | | [...] | | | | | | [place] [address] | | | | | | [phone] | | | | | | | | +--------+---------+ + + + documented as of this encounter Visit Diagnoses Not on filedocumented in this encounter"
--- OUTSIDE RECORDS SUMMARY | ~2019-09-12 | XMS | Encounter Summary ---
Demographics + + + | Address | [address] | | | [place] [address] | + + + | Home Phone [...] | Author | [facility] | | | and [place] | + + + | Organization | [facility] [...] | | | | | [place] [address] | | + + + + + | Valentín Saleh | ECON | [address] | | | | | [place] [address] | | + + + + + | Roberto Carlos Lennon | LEVI | Unknown | | + + + + + Care Team Providers + +------+ + | Care Inspection And Testing Supervisor Name | Role | Phone | + +------+ + | Francois Pascal MD | PCP | | + +------+ + Reason for Visit + +--------+ + | Reason | Onset | Comments | | | Date | | + +--------+ + | Appointment | 02/23/ | | | | 2018 | | + +--------+ + Encounter Details +--------+ + + + + | Date | Type | Department | Care Team | Description | +--------+ + + + + | 02/23/ | Telephone | [facility] | Francois Pascal, | Appointment | | 2018 | | [facility] [place] | [address] | | | | | [address] | [address] [place], | | | | | [place] | [place] [address] | | | | | [address] | [phone] | | | | | [phone] | | | +--------+ + + + [...] this encounter Miscellaneous Notes Telephone Encounter - Mili Interiano - 03/12/2019 4:46 PM PSTCalled patient's spouse again to see if by chance he had the number of adult home patient is at, did not have it will be s ending a blue card so he can take to the adult home and have staff call office to get tejinder dolan scheduled. elephone Encoun ter Mili Mendosa - 03/06/2019 4:50 PM PSTCalled patient and spouse answered stated alondra cabrera is in an adult fpc but did not have the number. elephone Encounter - Yamileth Bah RN - 02/23/2019 3:0 7 PM PSTDue for 3 month medication management appointment. Please schedule with PCP. 3:0 7 PM PSTdocumented in this encounter Plan of Treatment +--------+---------+ + + + | Date | Type | Specialty | Care Team | Description | +--------+---------+ + + + | 12/06/ | Office | Cardiology | Stephenie Paul, | | | 2019 | Visit | | [address] | | | | | | [place], | | | | | | [place] [address] | | | | | | [phone] | | | | | | | | +--------+---------+ + + + documented as of this encounter Visit Diagnoses Not on filedocumented in this encounter"
--- OUTSIDE RECORDS SUMMARY | ~2019-09-12 | XMS | Encounter Summary ---
Demographics + + + | Address | [address] | | | [place] [address] | + + + | Home Phone | | + + + | Preferred Language | Unknown | + + + | Marital Status | | + + + | Buddhism Affiliation | Unknown | + + + | Race | Unknown | + + + | Ethnic Group | Unknown | + + + Author + + + | Author | [facility] | | | and [place] | + + + | Organization | [facility] | | | and [place] | + + + | Address | Unknown | + + + | Phone | Unavailable | + + + Support + + + + + | Name | Relationship | Address | Phone | + + + + + | Sigrid Lennon | ECON | [address] | | | | | [place] [address] | | + + + + + | Valentín Saleh | ECON | [address] | | | | | [place] [address] | | + + + + + | Roberto Carlos Lennon | LEVI | Unknown | | + + + + + Care Team Providers + +------+ + | Care Supervisor Electronic Testing Name | Role | Phone | + +------+ + | Francois Pascal MD | PCP | | + +------+ + Reason for Visit + + + | Reason | Comments | + + + | Initial Assessment | | + + + Evaluate & Treat (Routine) +--------+ + + + + + | Status | Reason | Specialty | Diagnoses / | Referred By | Referred To | | | | | Procedures | Contact | Contact | +--------+ + + + + + | Closed | Specialty | Physical | Diagnoses | [place], | [facility] | | | Services | Therapy / | Gait | Francois Tello MD | Pt Op [address] | | | Required | Rehabilitatio | instability | [address] | | | | [address] | [address] | [place], | | | | | (ICD-10-CM) | [place] | [place] [address] | | | | | - [address] | [place] | Phone: | | | | | (ICD-9-CM) - | [address] | [phone] | | | | | Gait | Phone: | Fax: | | | | | instability | [phone] | [phone] | | | | | Procedures | Fax: | | | | | | pt eval | [phone] | | +--------+ + + + + + Encounter Details +--------+---------+ + + + | Date | Type | Department | Care Team | Description | +--------+---------+ + + + | 12/24/ | Office | [facility] | Francois Pascal, | Unsteady (Primary | | 2015 | Visit | [facility] THERAPY PT | MD [address] | Dx); Posture | | | | OP [address] | [address] [place], | imbalance; Impaired | | | | [place] | [place] [address] | functional mobility, | | | | [address] | [phone] | balance, gait, and | | | | [phone] | | endurance | | | | | Kely Quinn, PT | | | | | | [address] | | | | | | [place] | | | | | | [address] | | | | | | | [...] documented as of this encounter Progress Notes Kely Green, PT - 12/25/2014 9:19 AM PDTFormatting of this note might be different from t he original. Physical Therapy Plan of Care Date: 12/25/2014 Patient Name: Alyson Lennon Date of : 1930 Encounter Diagnoses Code Name Primary? R26.81 Unsteady Yes R29.3 Posture imbalance Z74.09 Impaired functional mobility, balance, gait, and endurance Date of Onset: 10/24/14 Start of Care Date: 12/24/14 Clinical Impression: Patient presents to physical therapy with a history of two falls. Pt reports that she had a fall in 2009 that resulted in left ankle fracture and subsequent surg veronica; with persistent and progressive left ankle pain. Pt also reports a fall in 10/2014 when she was stepping up a curb and was only using SPC, legs weren't strong enough to step up, pt fell but did not have any serious injury. Objective exam reveals impairments with LE streng th right >left, left ankle ROM/ pain and balance. Neurological examination is normal. Signs and symptoms are consistent with impaired balance related to LE weakness and left ankle dysf unction. These impairments are causing functional limitations with patient s inability to safety ambulate, complete ADL's/IADL's due to high fall risk. Complexities contributing to f requency and duration of therapy: chronicity of ankle injury/pain, impaired balance, complex cardiac history. Outcome Specific Scored Goals Primary Functional Goals: Functional Goal 1, Functional Goal 2, Functional Goal 3 Patient's Primary Functional Goal 1: Improve DGI score from 10/28 to >16/24 to reduce risk o f falls and increase functional mobility allowing for improved ability to complete ADL activ ities. 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 Patient's Primary Functional Goal 3: Increase ankle ROM to full allowing normal heel toe pa ttern with gait and normal navigation of stairs/curb with reciprocal gait pattern and least restrictive assistive device. Primary Functional Goal 3 Status Comment: currently left ankle DF/PF: 0-10 deg, unable to d o step through pattern due to decreased ROM and strength. OP PT Goals OP PT Goals: Goal 1 Goal 1: Patient will be Independent in a home exercise program to address symptoms of weakn ess/imbalance to decrease fall risk and improve ability to perform ADL's. Goal 1 Status: initiated HEP Treatment Plan/Interventions: 53135 PT Evaluation, 34399 Manual Therapy, 99117 Neuromuscular Re-education, 20990 Gait Tra ining, 58675 Therapeutic Exercise, 19937 Therapeutic Activity, 32465 Self Care/Home Manageme nt Requested # of Visits: 24 2x/wk for 12 weeks Certification From: 12/24/14 Certification To: 03/18/15 Kely Green PT Patient Name: Alyson Lennon/: 1930/ Kely Miller PT - 12/24/2014 3:13 PM PDT [facility] THERAPY PT OP [address] [place] [address] Physical Therapy Initial Assessment Date: 12/24/2014 Patient Information Patient Name: Alyson Lennon Date of : 1930 Age: 83 y.o. History Encounter Diagnoses Code Name Primary? 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 Myocardial infarction ([facility]) (1994&1996) CAR with Hx of Myocardial infarction Other abnormal clinical finding Verebral Compression Fractures Glossitis CAD (coronary artery disease) CHF (congestive heart failure) ([facility]) Arthritis Old AK (myocardial infarction) Carotid stenosis H/O ventricular septal defect repair DVT (deep vein thrombosis) in Chronic kidney disease, stage III (moderate) Vitamin D deficiency Osteoporosis OSTEOARTHRITIS, ANKLE, LEFT 01/21/2010 Squamous carcinoma 12/05/2012 Left ankle pain 07/30/2014 Past Surgical History Procedure Laterality Date Coronary artery bypass graft 1996 Grafting for Coronary Artery Bypass x 3 vessels and VSD Patch Cholecystectomy 1987 Left brest bi 1975 Previous inferior vena cava filter Cataract removal 2006 [facility] Hiatal hernia repair 1984 Orif left ankle unstable trimalleolar fracture dislocation 03/24/2009 Breast surgery 1975 BIOPSY BRESAT, LEFT Allergies Allergen Reactions Codeine Sulfate Nausea And Vomiting Darvon Nausea Only Estrogens Patient can't remember Rehab Precautions Office Visit from 12/24/2014 in [facility] THERAPY PT OP Rehab Precautions Precautions Comments fall risk Fall Risk 2 or more falls in the past year?: No Abuse Assessment Do you feel safe in your current relationship or home?: Yes Action taken by clinician: No concerns Pain Assessment Pain Rating Pre Assessment: 5 Pain Rating Post Assessment: 3 Location: left ankle BALANCE and GAIT EVALUATION: SUBJECTIVE: History of Presenting Problem: Alyson Lennon is a 83 y.o. right handed female who presents to therapy with a history of two falls. Pt reports that she had a fall in 2009 that resulted in left ankle fracture and subsequent surgery; with persistent and progressiv e left ankle pain. Pt also reports a fall in 10/2014 when she was stepping up a curb and was only using SPC, legs weren't strong enough to step up, pt fell but did not have any serious injury. Functional Limitations: unable to walk >15 min, heavily relies on 4WW for support/balance, unable to manage IADL's due to decreased balance Previous Level of Function: slow decline since left ankle fracture/surgery in 2009 Fall History: 2009 and 10/19 (stepping up a curb and only had SPC. Prior and/or Concurrent treatment: PT x2 for left ankle Living Situation / Home Environment: lives with in a single level home Occupation/Work Duties: retired Patient s Goals: be able to walk normally, no assistive device or maybe just a SPC OBJECTIVE: Resting Vitals: BP: 134/75 HR: 67 O2: 95 Observation/Posture/Alignment/Gait: 4WW slow, antalgic gait with decreased right step lengt h, decreased toe-off on left. Significant forward head/rounded shoulders Functional Movements: Initial Assessment Progress Note / Discharge Sit<>Stand: Dysfunctional, heavy use of UE, leans right Sit<>Supine: dysfunctional Double Leg Squat: Dysfunctional, quad dominant/medial collapse Single Leg Calf Raise: L= unable R= unable Single Leg Balance: L= unable R= unable Initial Assessment Initial Assessment Progress Note / Discharge Progress Note / Discharge Left Right Left Right Cervical ROM WFL WFL Sensation: intact intact Neurovascular: normal normal Cerebellar Function /Coordination: Left Right Left Right Finger to nose intact intact Heel to meeks intact intact Ankle ROM: Left Right Dorsi Flexion: 0 deg 0-15 Plantar Flexion: 0-10 0-35 deg Inversion: 0-10 0-20 Eversion: 0-5 0-10 Strength: Initial Assessment Initial Assessment Progress Note / Discharge Progress Note / D ischarge Left Right Left Right Upper Extremity 4/5 4+/5 Iliopsoas (L1,L2): 4/5 4+/5 Quadriceps (L3): 4/5 4+/5 Ankle DF (L4): 4/5 4+/5 Great Toe Ext (L5): 4/5 4+/5 Glute Med (L5): 4-/5 4/5 Ankle PF (S1): 4/5 4+/5 Ankle Eversion (S1): 4/5 4/5 Hamstrings (S2): 4/5 4/5 Lumbo-Pelvic Stabilizers: impaired Paraspinals: impaired Outcome Measure: Initial Assessment Progress Note / Discharge Dynamic Gait Index 10/28 (<19= predictive of falls in elderly) Modified-Clinical Test of sensory interaction in balance (M-CTSIB) Condition 1(eyes open/fi rm surface):30 seconds Condition 2(eyes closed/firm surface): 30 seconds, mild trunk sway Condition 3 (eyes open/foam surface): 30 seconds, mild trunk sway Condition 4(eyes closed/foam surface):3 seconds ASSESSMENT: Clinical Impression: Patient presents to physical therapy with a history of two falls. Pt r eports that she had a fall in 2009 that resulted in left ankle fracture and subsequent surge ry; with persistent and progressive left ankle pain. Pt also reports a fall in 10/2014 when s he was stepping up a curb and was only using SPC, legs weren't strong enough to step up, pt fell but did not have any serious injury. Objective exam reveals impairments with LE strengt h right >left, left ankle ROM/ pain and balance. Neurological examination is normal. Signs a nd symptoms are consistent with impaired balance related to LE weakness and left ankle dysfu nction. These impairments are causing functional limitations with patient s inability to s afety ambulate, complete ADL's/IADL's due to high fall risk. Complexities contributing to fr equency and duration of therapy: chronicity of ankle injury/pain, impaired balance, complex cardiac history. Functional Limitation Reporting G Code Severity Modifier Current Status [id number] Mobility walking and moving around functional limitation, current sta tus, at therapy episode outset and at reporting intervals CL At least 60 percent but less th an 80 percent impaired, limited or restricted Goal G8979 Mobility walking and moving around functional limitation, projected goal status CJ At least 20 percent but less than 40 percent impaired, limited or restricted Based upon pain level of 5-7/10 and DGI of 8/24 With physical therapy interventions, this patient is expected to achieve the goal G-code stated above. Rehabilitation potential: Patient demonstrates good potential to achieve established goals to address the above documented impairments and achieve the following functional goals by pa rticipating in skilled physical therapy services. THERAPY GOALS: Outcome Specific Scored Goals Primary Functional Goals: Functional Goal 1, Functional Goal 2, Functional Goal 3 Patient's Primary Functional Goal 1: Improve DGI score from 8/24 to >16/24 to reduce risk o f falls and increase functional mobility allowing for improved ability to complete ADL activ ities. 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 Patient's Primary Functional Goal 3: Increase ankle ROM to full allowing normal heel toe pa ttern with gait and normal navigation of stairs/curb with reciprocal gait pattern and least restrictive assistive device. Primary Functional Goal 3 Status Comment: currently left ankle DF/PF: 0-10 deg, unable to d o step through pattern due to decreased ROM and strength. OP PT Goals OP PT Goals: Goal 1 Goal 1: Patient will be Independent in a home exercise program to address symptoms of weakn ess/imbalance to decrease fall risk and improve ability to perform ADL's. Goal 1 Status: initiated HEP PLAN: Requested # of Visits: 24 2x/wk for 12 weeks Certification From: 12/24/14 Certification To: 03/18/15 Start of Care Date: 12/24/14 Treatment Plan/Interventions 64204 PT Evaluation, 26708 Manual Therapy, 14968 Neuromuscular Re-education, 73903 Gait Tra ining, 01671 Therapeutic Exercise, 78619 Therapeutic Activity, 72598 Self Care/Home Manageme nt Patient and/or family has indicated understanding of treatment needs and actively participa rachel in the creation of this plan for care. Today's Treatment Start Time: 1500 Stop time: 1600 Duration: 60 minutes Timed Treatment Codes: 30 minutes # of PT Visits: 1 Objective: Education of rehab timeline, focus and expectations. Manual Therapy: left ankle grade III-IV mobs to increased DF/PF Exercise/Activity 12/24/14 Left ankle DF/PF 1x10 Left ankle "Alphabet" x Left ankle ROM DF/PF: post 8-0-15 deg Next Visit: cont with left ankle manual therapy as indicated, initiated LE strengthening an d balance activities Electronically signed by: Kely Green PT, 12/25/2014 9:17 Patient Name: Alyson Lennon/: 1930/ documented in this enco unter Plan of Treatment +--------+---------+ + + + | Date | Type | Specialty | Care Team | Description | +--------+---------+ + + + | 12/06/ | Office | Cardiology | Stephenie Paul, | | | 2019 | Visit | | [address] | | | | | | [place], | | | | | | [place] [address] | | | | | | [phone] | | | | | | | | +--------+---------+ + + + + + +--------+ + + | Name | Type | Priori | Associated Diagnoses | Order Schedule | | | | ty | | | + + +--------+ + + | * [facility] | Outpatient | Routin | Gait instability | Ordered: 12/09/2014 | | Therapy - AMB | Referral | e | | | | Referral | | | | | + + +--------+ + + documented as of this encounter Visit Diagnoses + + | Diagnosis | + + | Unsteady - Primary Abnormality of gait | + + | Posture imbalance Disorders of soft tissue, unspecified | + + | Impaired functional mobility, balance, gait, and endurance | + + documented in this encounter
--- OUTSIDE RECORDS SUMMARY | ~2019-09-12 | XMS | Encounter Summary ---
Demographics + + + | Address | [address] | | | [place] [address] | + + + | Home Phone | | + + + | Preferred Language | Unknown | + + + | Marital Status | | + + + | Religion Affiliation | Unknown | + + + | Race | Unknown | + + + | Ethnic Group | Unknown | + + + Author + + + | Author | [facility] | | | and [place] | + + + | Organization | [facility] | | | and [place] | + + + | Address | Unknown | + + + | Phone | Unavailable | + + + Support + + + + + | Name | Relationship | Address | Phone | + + + + + | Sigrid Lennon | ECON | [address] | | | | | [place] [address] | | + + + + + | Valentín Saleh | ECON | [address] | | | | | [place] [address] | | + + + + + | Roberto Carlos Lennon | LEVI | Unknown | | + + + + + Care Team Providers + +------+ + | Care Back Digger Operator Name | Role | Phone | + +------+ + | Francois Pascal MD | PCP | | + +------+ + Reason for Visit + + + | Reason | Comments | + + + | Follow-up | 3 month | + + + Encounter Details +--------+---------+ + + + | Date | Type | Department | Care Team | Description | +--------+---------+ + + + | 03/01/ | Office | [facility] | Francois Pascal, | DM (diabetes | | 2012 | Visit | [facility] | [address] | mellitus) (HCC) | | | | [address] | [place] [address] [place], | (Primary Dx); | | | | [place] | [place] [address] | Hyperlipidemia; | | | | [address] | [phone] | HYPERTENSION NEC; | | | | [phone] | | CHRONIC KIDNEY | | | | | | DISEASE STAGE III | | | | | | (MODERATE) | +--------+---------+ + + + Social History [...] + + + | Blood Pressure | 140/70 | 03/01/2013 10:05 AM | | | | | PST | | + + + + + | Pulse | 70 | 03/01/2013 10:05 AM | | | | | PST | | + + + + + | Temperature | 36.6 C (97.9 F) | 03/01/2013 10:05 AM | | | | | PST | | + + + + + | Respiratory Rate | 16 | 03/01/2013 10:05 AM | | | | | PST | | + + + + + | Oxygen Saturation | 95% | 03/01/2013 10:05 AM | | | | | PST | | + + + + + | Inhaled Oxygen | - | - | | | Concentration | | | | + + + + + | Weight | 76.2 kg (168 lb) | 03/01/2013 10:05 AM | | | | | PST | | + + + + + | Height | 158.8 cm (5' 2.5") | 03/01/2013 10:05 AM | | | | | PST | | + + + + + | Body Mass Index | 30.24 | 03/01/2013 10:05 AM | | | | | PST | | + + + + + documented in this encounter Progress Notes Francois Pascal MD - 03/01/2013 10:24 AM PSTFormatting of this note might be different f rom the original. Subjective: Patient ID: Alyson Lennon is a 82 y.o. female. 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 He mouth is still occasionally sore. DM2 she is on lantus and novolog, and Januvia (she understands the risk with this). She notices that her glucoses are high occasionally. Rarely as high as 250 prior to a meal. In the morning is runs in the 90-120. She is compliant with her medications, she denies polyu melonie, polydipsia or polyphagia, She admits to having the right diet. lantus 110u qhs, nov olog 15-19 in am, 20-27 prior to lunch and 30-34 prior to dinner. She declines further diet [place] consult. She tries to watch her diet "with every bit she takes" HBA1C due after 12/12. CKD, She urinates normally. There is no blood in her urine, She feels as though she drink s plenty of fluids. She saw Kemar Mcclelland in Nephrology earlier today. HTN There is no chest pain SOB [...] VSD Father 50 Pneumonia Family Hx of Wickes's chorea Sister and 2 brothers: CAD, Wickes's Disease to [place] - with 2 Healthy Children No kidney disease in family. Social History: Reviewed history from 08/11/2011 and no changes required: Born in [facility] for [facility] years. and Remarried 2 [...] no gross lesions Assessment: 1. DM (diabetes mellitus) 2. Hyperlipidemia 3. HYPERTENSION NEC 4. CHRONIC KIDNEY DISEASE STAGE III (MODERATE) Plan: She looks and feels fine. Recent labs reviewed. Missing HBA1C and she will obtain this. RTC 3 months with labs prior. Mammogram is pending. Seeing Dr Corado in the near future. documented in this encounter Plan of Treatment +--------+---------+ + + + | Date | Type | Specialty | Care Team | Description | +--------+---------+ + + + | 12/06/ | Office | Cardiology | Stephenie Paul, | | | 2019 | Visit | | MD [address] | | | | | | [place], | | | | | | [place] [address] | | | | | | [phone] | | | | | | | | +--------+---------+ + + + documented as of this encounter Results Urinalysis with Microscopic if Indicated (05/22/2013 12:08 PM PDT) + + + + + [...] + + + | pH, Urine | 5.5 | 5.0 - 8.0 | [facility] | | | | | [facility] | | | | | | [facility] | | | | | | [facility] - | | | | | | LABORATORY | | + + + + + + | Specific | 1.015 | 1.001 - 1.030 | [facility] | | | [place], | | | [facility] | | | Urine | | | MEDICAL | | | | | | CENTER - | | | | | | LABORATORY | | + + + + + + | Protein, | Negative | Negative, | [facility] | | | Urine | | Trace, 30 mg/dL | [facility] | | | [...] + + | Nitrite, | Negative | Negative, Test | [facility] | | | Urine | | not performed | [facility] | | | | [...] + + | Urobilinoge | 0.2 | | [facility] | | | n, Urine | | | [facility] | | | | | | [...] [address] | [place] | [phone] | | [facility] | | [address] | | | - LABORATORY | | | | + + + + + | [facility] | [address] | [place] | | | [facility] | | [id number] | | | - LABORATORY | | | | + + + + + Lipid Profile (05/22/2013 10:26 AM PDT) + +---------+ + + + | Component | Value | Ref Range | Performed | Pathologist | | | | | At | Signature | + +---------+ + + + | Triglycerid | 208 (H) | 35 - 160 mg/dL | [facility] | | | es | | | [facility] | | | | | | MEDICAL | | | | | | CENTER - | | | | | | LABORATORY | | + +---------+ + + + | Cholesterol | 126 (L) | 150 - 200 mg/dL | [facility] | | | | | | [facility] | | | | | | MEDICAL | | | | | | CENTER - | | | | | | LABORATORY | | + +---------+ + + + | HDL | 42 | 29 - 89 mg/dL | [facility] | | | | | | [facility] | | | | | | MEDICAL | | | | | | CENTER - | | | | | | LABORATORY | | + +---------+ + + + | Chol/HDL | 3.0 | | [facility] | | | Ratio | | | [facility] | | | | | | MEDICAL | | | | | | CENTER - | | | | | | LABORATORY | | + +---------+ + + + | LDL, | 42 | <=130 mg/dL | [facility] | | | Calculated | | | [facility] | | [...] + | [facility] | [address] | [place] | [phone] | | [facility] | | [address] | | | - LABORATORY | | | | + + + + + | [facility] | [address] | [place], [place] | | | [facility] | | [address], [facility] | | | - LABORATORY | | | | + + + + + Comprehensive Metabolic Panel (05/22/2013 10:26 AM PDT) + + [...] + + + + | Cl | 97 (L) | 98 - 109 mmol/L | [...] + | Anion Gap | 8 | 6 - 17 mmol/L | [facility] | | | | | | [facility] | | | | | | [facility]ICAL | | | | | | CENTER - | | | | | | LABORATORY | | + + + + + + | Glucose | 156 (H) | 70 - 109 mg/dL | [...] | 1.10 | 0.60 - 1.30 | [facility] | | | | | mg/dL | [facility] | | | | | | MEDICAL | | | | | | CENTER - | | | | | | LABORATORY | | + + + + + + | eGFR if not | 48 (L)Comment: | >=60 | [facility] | | | | GLOMERULAR FILTRATION | mL/min/1.73m2 | [facility] | | | [place]RA[place] | RATE,ESTIMATED | | MEDICAL | | | | mL/min/1.92v6Vqzg than | | CENTER - | | [...] + + + + | Bilirubin | 0.7 | 0.1 - 1.5 mg/dL | [facility] | | | Total | | | [facility] | | | | | | MEDICAL | | | | | | CENTER - | | | | | | LABORATORY | | + + + + + + | Total | 7.0 | 6.0 - 7.8 g/dL | [facility] | | | Protein | | | [facility] | | | | | | MEDICAL | | | | | | CENTER - | | | | | | LABORATORY | | + + + + + + | AST | 21 | 10 - 42 U/L | [facility] | | | | | | [facility] | | | | | | MEDICAL | | | | | | CENTER - | | | | | | LABORATORY | | + + + + + + | ALT | 17 | 6 - 45 U/L | [facility] | | | | | | [facility] | | | | | | MEDICAL | | | | | | CENTER - | | | | | | LABORATORY | | + + + + + + | Alkaline | 51 | 40 - 110 U/L | [facility] | | | Phosphatase | | | [facility] | | | | | | MEDICAL | | | | | | CENTER - | | | | | | LABORATORY | | + + + + + + | Globulin | 3.3 | g/dL | [facility] | | | | | | [facility] | | | | | | MEDICAL | | | | | | CENTER - | | | | | | LABORATORY | | + + + + + + | Albumin/Kalani | 1.1 | | [facility] | | | bulin Ratio | | | [facility] | | | | | | MEDICAL | | | | | | CENTER - | | | | | | LABORATORY | | + + + + + + | BUN/Creatin | 20.0 | | [facility] | | | ine [...] + | [facility] | [address] | [place], [place] | [phone] | | [facility] | | [address] | | | - LABORATORY | | | | + + + + + | [facility] | [address] | [place], [place] | | | [facility] | | [address] | | | - LABORATORY | | | | + + + + + Hemoglobin A1C (03/01/2013 10:54 AM PST) + + + + + + | Component | Value | Ref Range | Performed | Pathologist | | | | | At | Signature | + + + + + + | Hemoglobin | 8.4 (H)Comment: | 4.3 - 5.8 % | [...] | + + + + + | [facility] | [address] | [place] | [phone] | | [facility] | | [address] | | | - LABORATORY | | | | + + + + + | [facility] | [address] | [place] | | | [facility] | | [id number] [place] [address] | | | - LABORATORY | | | | + + + + + documented in this encounter Visit Diagnoses + + | Diagnosis | + + | DM (diabetes mellitus) (HCC) - Primary Type II or unspecified type diabetes mellitus | | without mention of complication, not stated as uncontrolled | + + | Hyperlipidemia Other and unspecified hyperlipidemia | + + | HYPERTENSION NEC Complications affecting other specified body systems, hypertension | + + | CHRONIC KIDNEY DISEASE STAGE III (MODERATE) Chronic kidney disease, Stage III | | (moderate) | + + documented in this encounter
--- OUTSIDE RECORDS SUMMARY | ~2019-09-12 | XMS | Encounter Summary ---
Demographics + + + | Address | [address] | | | [place] [address] | + + + | Home Phone [...] [facility] | | | and [place] | + + + | Organization | [facility] | | [...] | | | | | [place] [address] | | + + + + + | Valentín Saleh | ECON | [address] | | | | | [place] [address] | | + + + + + | Roberto Carlos Lennon | LEVI | Unknown | | + + + + + Care Team Providers + +------+ + | Care Machine Repairer Maintenance Name | Role | Phone | + +------+ + | Francois Pascal MD | PCP | | + +------+ + Reason for Visit + + + | Reason | Comments | + + + | Chronic Kidney | | | Disease, Stage III | | + + + Evaluate & Treat (Routine) +--------+--------+ + + + + | Status | Reason | Specialty | Diagnoses / | Referred By | Referred To | | | | | Procedures | Contact | Contact | +--------+--------+ + + + + | Closed | | Nurse | Diagnoses | Naida, | | | | | Practitioner | Chronic | Francois Tello MD | Katrina, | | | | / Nephrology | kidney | [address] | [place], | | | | | disease, | [address] | [employer] [address] | | | | | stage 3 | [place] | [address] | | | | | (moderate) | [place] | [address] | | | | | (HCC) | [address] | [place], | | | | | Hypertension | Phone: | [place] [address] | | | | | , renal | [phone] | Phone: | | | | | disease | Fax: | [phone] | | | | | Procedures | [phone] | Fax: | | | | | [place] OFFICE | | [phone] | | | | | OUTPATIENT | | | | | | | VISIT 25 | | | | | | | MINUTES | | | +--------+--------+ + + + + Encounter Details +--------+---------+ + + + | Date | Type | Department | Care Team | Description | +--------+---------+ + + + | 10/04/ | Office | [facility] [place] | [place], | CHRONIC KIDNEY | | 2017 | Visit | NEPHROLOGY [address] | [address]O [address] | DISEASE STAGE III | | | | [address] | [address] | (MODERATE) (Primary | | | | [address] | [address] | Dx); Gout, | | | | [phone] | [address] | unspecified cause, | | | | [phone] | | unspecified | | | | | | chronicity, | | | | | | unspecified site; | | | | | | Uncontrolled type 2 | | | | | | diabetes mellitus | | | | | | with diabetic | | | | | | nephropathy, | | | | | | unspecified long | | | | | | term insulin use | | | | | | status ([facility]); | | | | | | Hypertension, renal | | | | | | disease, stage 1-4 | | | | | | or unspecified | | | | | | chronic kidney | | | | | | disease; Vitamin D | | | | | [...] + + + | Blood Pressure | 108/58 | 10/04/2016 11:37 AM | | | | | PDT | | + + + + + | Pulse | 52 | 10/04/2016 11:00 AM | | | | | PDT | | + + + + + | Temperature | - | - | | + + + + + | Respiratory Rate | - | - | | + + + + + | Oxygen Saturation | 93% | 10/04/2016 11:00 AM | | | | | PDT | | + + + + + | Inhaled Oxygen | - | - | | | Concentration | | | | + + + + + | Weight | 69.5 kg (153 lb 4.8 | 10/04/2016 11:00 AM | Renee Guerreroor sravan | | | oz) | PDT | 09/16/16 | + + + + + | Height | - | - | | + + + + + | Body Mass Index | 24.74 | 09/09/2016 8:15 AM | | | | | PDT [...] documented as of this encounter Progress Notes Kemar Herndon ARNP - 10/04/2016 11:00 AM PDTFormatting of this note might be diff erent from the original. Nephrology Follow-up Visit Visit date: 10/04/2016 Primary care provider: Francois Pascal MD Follow-up type: 6 months HPI: Alyson Lennon is a 85 y.o. 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 -type 2 diabetes mellitus with neuropathy -hypertension -CAD with CABG x 3 vessels [address] Corado -serum creatinine has fluctuated from 1.1-1.4 mg/dl since 2010, infrequently 1.6-1.7 mg/dl; currently 0.8-0.9 mg/dl Alyson fell in July and fractured left hip. Since then has been at [facility] for rehab. She is ambulating with a walker at care facility. She is not sure what her blood pressure has been recently. No lightheadedness or dizziness. 07/10/16-07/13/16- Hospitalized due to left hip fracture now at [facility]. ROS: Reports food at care facility is not great; reports not being able to walk since hip f racture/surgery; urinary incontinence. Denies fatigue, chest pain, dyspnea, orthopnea, edema , nausea, vomiting, dysuria, hematuria, urinary frequency. 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 S/p left hip fracture 08/03/2016 Stomatitis 07/19/2016 Reactive depression 07/19/2016 Atrial fibrillation (HCC) 07/12/2016 Skin cancer 05/31/2016 Essential hypertension with goal blood pressure less than 130/80 03/11/2016 Note Last Updated: 05/27/2016 Echocardiogram, 03/11/2016 shows mild left atrial dilatation, normal left ventricular size, wall thickness and motion, preserved left ventricular systolic function, LVEF is 55%, mildl y thickened and calcified mitral valve with a mild mitral valve regurgitation, moderate mitr al annular calcification, mildly thickened and calcified trileaflet aortic valve with adequa te opening, there is aortic valve sclerosis without significant aortic valve stenosis, there is a mild aortic valve insufficiency, normal right-sided pressure, mild ascending aorta dil atation measuring 4.1 cm in diameter, normal IVC with normal respiratory collapse. Gingival bleeding 12/02/2015 Diabetic neuropathy (HCC) 11/26/2015 Unsteady 12/24/2014 Posture imbalance 12/24/2014 Impaired functional [...] compared with patient's prior study of 2008. 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 Note Last Updated: 12/16/2015 Problem list safety aide utility Preventative health care 03/23/2012 Note Last Updated: 09/27/2012 CRSC:03/23/2002normal except for redundancy and atonicity Next Due: Mammo:03/02/2012 benign Next:03/02/2013 Pap:03/24/2009 negative Next: CAROTID STENOSIS AMAUROSIS FUGAX DEMYELINATING DISEASE, CENTRAL NERVOUS SYSTEM FRACTURE, ANKLE, LEFT VITAMIN D DEFICIENCY Hypertension, renal disease DM type 2, uncontrolled, with renal complications (HCC) Coronary artery disease involving [place] coronary artery of [place] heart without angina pectoris Note Last Updated: 03/20/2014 Status post an [...] update ARTHRITIS, CHRONIC 09/28/2011 AMI - ANTEROSEPTAL 1995 08/09/2011 VSD - 199408/09/2011 CLOSURE VENTRICULAR SEPTAL DEFECT - 199408/09/2011 FATIGUE 05/24/2011 VIRAL URI 05/24/2011 HYPERTRIGLYCERIDEMIA 12/24/2010 Outpatient Prescriptions Marked as Taking for the 10/04/16 encounter (Office Visit) with LAURO Kern Medication Sig Dispense Refill acetaminophen (TYLENOL) 325 [...] tablet by mouth nightly. 90 tablet 3 bisacodyl (DULCOLAX) [address] 1 suppository rectally Daily as needed for Constipation. 0 Zptsxax-Zlrgtuiau-Rypxvdd D (CALCIUM 500 PO) Take 1 capsule by mouth Daily. colchicine 0.6 mg tablet 1-2 tablets by mouth as needed escitalopram (LEXAPRO) 10 mg tablet Take 1 tablet by mouth Daily. 30 tablet 1 folic acid 1 mg tablet Take 1 tablet by mouth Daily. 90 tablet 1 HYDROcodone-acetaminophen (NORCO) 5-325 mg per tablet Take 1 tablet by mouth every 4 ho urs as needed for Pain. 30 tablet 0 insulin glargine (LANTUS) 100 units/mL injection (vial) 10 units every morning and 10 u nits every evening 50 mL 6 insulin lispro (HUMALOG KWIKPEN) 100 units/mL injection (pen) Inject 0-12 Units under t he skin 4 times daily (with meals and nightly). 10 mL 0 lisinopril (PRINIVIL, ZESTRIL) 20 mg tablet TAKE ONE TABLET BY MOUTH EVERY DAY 30 table t 11 Magnesium Hydroxide (MILK OF MAGNESIA PO) Take 30 mLs by mouth as needed. methotrexate 2.5 mg tablet Take 5 tablets by mouth Once a week. Indications: Rheumatoid Arthritis 20 tablet 2 metoprolol succinate (TOPROL-XL) 200 mg ER tablet TAKE ONE TABLET BY MOUTH EVERY DAY 90 tablet 3 multivitamin (THERAGRAN) per tablet Take 1 by mouth daily Nutritional Supplements (ESPERANZA PO) Take by mouth 2 times daily. polyethylene glycol (MIRALAX) packet Take 1 diluted packet by mouth Daily as needed. 0 rivaroxaban (XARELTO) 10 mg tablet Take 1 tablet by mouth Daily. 40 tablet 0 sodium phosphate (FLEET) enema Place 133 mLs rectally Daily as needed for Constipation. Allergies Allergen Reactions Codeine Sulfate Nausea And Vomiting Darvon Nausea Only Estrogens Patient can't remember Pneumococcal Vaccines Other (See Comments) Thinks it was a Prevnar, arm became red/sore/swollen Physical Exam: BP 108/58 | Pulse 52 | Wt 69.5 kg (153 lb 4.8 oz) Comment: Renee Giang on 09/16/16 | SpO2 9 3% | BMI 24.74 kg/m Constitutional: Appears elderly, chronically ill. No distress. Wheelchair bound. ENT: Oropharynx is clear and oral mucosa is moist. Cardiovascular: Normal rate, regular rhythm and normal heart sounds. 2/6 systolic murmur, no gallop and no friction rub. No JVD. Trace LE edema. Lungs: Respiratory effort normal and breath sounds normal. No crackles or wheezes. Abdominal: Soft. Bowel sounds are present. No distension or tenderness. Musculoskeletal: No joint swelling. No muscle tenderness. Skin: Skin is warm. No rash over extremities. Neurological: Alert. Memory intact. Reviewed labs with patient. Office Visit on 10/04/2016 Component Date Value Ref Range Status NA 10/04/2016 135* 136 - 149 mmol/L Final K 10/04/2016 4.5 3.5 - 5.1 mmol/L Final CL 10/04/2016 99 98 - 109 mmol/L Final CO2 10/04/2016 28 24 - 31 mmol/L Final ANION GAP 10/04/2016 8 3 - 16 mmol/L Final GLUCOSE 10/04/2016 304* 70 - 109 mg/dL Final BUN 10/04/2016 21* 7 - 18 mg/dL Final Creatinine, Serum/Plasma 10/04/2016 0.82 0.60 - 1.30 mg/dL Final eGFR if not 10/04/2016 >60 >=60 mL/min/1.73m2 Final CALCIUM 10/04/2016 8.9 8.3 - 10.5 mg/dL Final ALBUMIN 10/04/2016 2.8* 3.2 - 5.0 g/dL Final PHOSPHORUS 10/04/2016 3.9 2.5 - 4.6 mg/dL Final BUN/CREA 10/04/2016 25.6 Final Vitamin D, 25 Hydroxy 10/04/2016 32 30 - 80 ng/mL Final URIC ACID 10/04/2016 3.9 2.6 - 7.2 mg/dL Final ASSESSMENT AND PLAN: 1. CKD (chronic kidney disease), stage III N18.3 585.3 -renal function is stabl e -electrolytes are fine -recommend avoiding hypotension for adequate renal perfusion; adjust BP medication if stayi ng low normal 2. Hypertension, renal disease, stage 1-4 or unspecified chronic kidney disease I12 .9 403.90 Blood pressure is low normal on lisinopril and metoprolol. -check BP daily x 1 week, then notify office -decrease lisinopril if BP staying low N18.9 3. DM type 2, uncontrolled, with renal complications (HCC) E11.29 250.42 Di scussed goals. Continue working with primary provider for tighter control. E11.65 4. Vitamin D deficiency E55.9 268.9 PTH pending. Vitamin D replete. Serum c alcium and phosphorus are stable. 5. Gout Uric acid level controlled on allopurinol. Return in about 6 months (around 04/06/2017). Labs: renal panel, CBC, urine protein/cr ratio Patient verbalized agreement and understanding of above plan. CC: Francois Pascal MD documented i n this encounter Plan of Treatment +--------+---------+ + + + | Date | Type | Specialty | Care Team | Description | +--------+---------+ + + + | 12/06/ | Office | Cardiology | Stephenie Paul, | | | 2020 | Visit | | MD Bob [address]quez [address] | | | | | | [place], | | | | | | [place] [address] | | | | | | [phone] | | | | | | | | +--------+---------+ + + + documented as of this encounter Procedures + +--------+ + + + | Procedure Name | Priori | Date/Time | Associated Diagnosis | Comments | | | ty | | | | + +--------+ + + + | VITAMIN D, | Routin | 10/04/2016 | CHRONIC KIDNEY | Results for this | | DEFICIENCY SCREEN | e | 11:04 AM | DISEASE STAGE III | procedure are in the | | (25-HYDROXY) | | PDT | (MODERATE) Gout, | results section. | | | | | unspecified cause, | | | | | | unspecified | | | | | | chronicity, | | | | | | unspecified site | | + +--------+ + + + | URIC ACID | Routin | 10/04/2016 | CHRONIC KIDNEY | Results for this | | | e | 11:04 AM | DISEASE STAGE III | procedure are in the | | | | PDT | (MODERATE) Gout, | results section. | | | | | unspecified cause, | | | | | | unspecified | | | | | | chronicity, | | | | | | unspecified site | | + +--------+ + + + | PARATHYROID HORMONE, | Routin | 10/04/2016 | CHRONIC KIDNEY | Results for this | | INTACT | e | 11:04 AM | DISEASE STAGE III | procedure are in the | | | | PDT | (MODERATE) Gout, | results section. | | | | | unspecified cause, | | | | | | unspecified | | | | | | chronicity, | | | | | | unspecified site | | + +--------+ + + + | RENAL FUNCTION PANEL | Routin | 10/04/2016 | CHRONIC KIDNEY | Results for this | | | e | 11:04 AM | DISEASE STAGE III | procedure are in the | | | | PDT | (MODERATE) Gout, | results section. | | | | | unspecified cause, | | | | | | unspecified | | | | | | chronicity, | | | | | | unspecified site | | + +--------+ + + + documented in this encounter Results Uric Acid (10/04/2016 11:04 AM PDT) + +-------+ + + + | Component | Value | Ref Range | Performed | Pathologist | | | | | At | Signature | + +-------+ + + + | Uric Acid | 3.9 | 2.6 - 7.2 mg/dL | [facility] | | | | [...] + | [facility] | [address] | [place] | [phone] | | [facility] | | [address] | | | - LABORATORY | | | | + + + + + Vitamin D, Deficiency Screen (25-Hydroxy) (10/04/2016 11:04 AM PDT) + +-------+ + + + | Component | Value | Ref Range | Performed | Pathologist | | | | | At | Signature | + +-------+ + + + | Vitamin D, | 32 | 30 - 80 ng/mL | [facility] | | | 25 Hydroxy | | | [facility] | | [...] [address] | [place] | [phone] | | [facility] | | [address] | | | - LABORATORY | | | | + + + + + Parathyroid Hormone, Intact (10/04/2016 11:04 AM PDT) + +-------+ + + + | Component | Value | Ref Range | Performed | Pathologist | | | | | At | Signature | + +-------+ + + + | PTH Intact | 20 | 12 - 88 pg/mL | [facility] | | | | | [...] [address] | [place] | [phone] | | [facility] | | [address] | | | - LABORATORY | | | | + + + + + Renal Function Panel (10/04/2016 11:04 AM PDT) + +---------+ + + + | Component | Value | Ref Range | Performed | Pathologist | | | | | At | Signature | + +---------+ + + + | Na | 135 (L) | 136 - 149 | [facility] | | | | | mmol/L | [facility] | | | | | | [facility] | | | | | | C[facility] - | | | | | | LABORATORY | | + +---------+ + + + | K | 4.5 | 3.5 - 5.1 | [facility] | | | | | mmol/L | [facility] | | | | | | [facility] | | | | | | CENTER - | | | | | | LABORATORY | | + +---------+ + + + | Cl | 99 | 98 - 109 mmol/L | [facility] | | | | | | [facility] | | | | | | [facility] | | | | | | C[facility] - | | | | | | LABORATORY | | + +---------+ + + + | CO2 | 28 | 24 - 31 mmol/L | [facility] | | | | | | [facility] | | | | | | [facility] | | | | | | C[facility] - | | | | | | LABORATORY | | + +---------+ + + + | Anion Gap | 8 | 3 - 16 mmol/L | [facility] | | | | | | [facility] | | | | | | MEDICAL | | | | | | CENTER - | | | | | | LABORATORY | | + +---------+ + + + | Glucose | 304 (H) | 70 - 109 mg/dL | [facility] | | | | | | [facility] | | | | | | MEDICAL | | | | | | CENTER - | | | | | | LABORATORY | | + +---------+ + + + | BUN | 21 (H) | 7 - 18 mg/dL | [facility] | | | | | | [facility] | | | | | | MEDICAL | | | | | | CENTER - | | | | | | LABORATORY | | + +---------+ + + + | Creatinine | 0.82 | 0.60 - 1.30 | [facility] | | | | | mg/dL | [facility] | | | | | | MEDICAL | | | | | | CENTER - | | | | | | LABORATORY | | + +---------+ + + + | eGFR if not | >60 | >=60 | [facility] | | | | | mL/min/1.73m2 | [facility] | | | [facility] | | | MEDICAL | | | | | | CENTER - | | | | | | LABORATORY | | + +---------+ + + + | Calcium | 8.9 | 8.3 - 10.5 | [facility] | | | | | mg/dL | [facility] | | | | | | MEDICAL | | | | | | CENTER - | | | | | | LABORATORY | | + +---------+ + + + | Albumin | 2.8 (L) | 3.2 - 5.0 g/dL | [facility] | | | | | | [facility] | | | | | | MEDICAL | | | | | | CENTER - | | | | | | LABORATORY | | + +---------+ + + + | Phosphorus | 3.9 | 2.5 - 4.6 mg/dL | [facility] | | | | | | [facility] | | | | | | MEDICAL | | | | | | CENTER - | | | | | | LABORATORY | | + +---------+ + + + | BUN/Creatin | 25.6 [...] [facility] [address] | [place] | [phone] | | [facility] | | [address] | | | - LABORATORY | | | | + + + + + documented in this encounter Visit Diagnoses + + | Diagnosis | + + | CHRONIC KIDNEY DISEASE STAGE III (MODERATE) - Primary Chronic kidney disease, Stage | | III (moderate) | + + | Gout, unspecified cause, unspecified chronicity, unspecified site | + + | 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, unspecified lobsterman | | insulin use status | + + | Hypertension, renal disease, stage 1-4 or unspecified chronic kidney disease | + + | Vitamin D deficiency Unspecified vitamin D deficiency | + + documented in this encounter
--- OUTSIDE RECORDS SUMMARY | ~2019-09-12 | XMS | Encounter Summary ---
Demographics + + + | Address | [address] | | | [place] [address] | + + + | Home Phone | | + + + | Preferred Language | Unknown | + + + | Marital Status | | + + + | Yarsani Affiliation | Unknown | + + + | Race | Unknown | + + + | Ethnic Group | Unknown | + + + Author + + + | Author | [facility] | | | and [place] | + + + | Organization | [facility] | | [...] | | | | | [place] [address] | | + + + + + | Valentín Saleh | ECON | [address] | | | | | [place] [address] | | + + + + + | Roberto Carlos Lennon | LEVI | [place] | | + + + + + Care Team Providers + +------+ + | Care Blueprint Assembler Name | Role | Phone | + +------+ + PCP | Unavailable | + +------+ + Encounter Details +--------+ + + + + | Date | Type | Department | Care Team | Description | +--------+ + + + + | 10/30/ | Hospital | [facility] | | | | 2003 | Encounter | MED CTR XRAY [address] | | | | | | [place] [place] | | | | | | [place] [address] | | | | | | [phone] | | | +--------+ + + + [...] | | | | | | [place] [address] | | | | | | [phone] | | | | | | | | +--------+---------+ + + + documented as of this encounter Visit Diagnoses Not on filedocumented in this encounter"
--- OUTSIDE RECORDS SUMMARY | ~2019-09-12 | XMS | Encounter Summary ---
Demographics + + + | Address | [address] | | | [place] [address] | + + + | Home Phone [...] | Author | [facility] | | | and [place] | + + + | Organization | [facility] | | | and [place] | + + + | Address | Unknown | + + + | Phone | Unavailable | + + + Support + + + + + | Name | Relationship | Address | Phone | + + + + + | Sigrid Lennon | ECON | [address] | | | | | [place] [address] | | + + + + + | Valentín Saleh | ECON | [address] | | | | | [place] [address] | | + + + + + | Roberto Carlos Lennon | LEVI | Unknown | | + + + + + Care Team Providers + +------+ + | Care Web Marketing Coordinator Name | Role | Phone | + +------+ + | Francois Pascal MD | PCP | | + +------+ + Encounter Details +--------+ + + + + | Date | Type | Department | Care Team | Description | +--------+ + + + + | 09/10/ | Hospital | [facility] | Francois Pascal, | HYPERTENSION NEC; | | 2015 | Encounter | [facility] | [address] | Hyperlipidemia; Type | | | | [address] [place] | [address] [place], | 2 diabetes mellitus | | | | [place], [place] | [place] [address] | with hyperglycemia | | | | [address] | [phone] | ([facility]); DM (diabetes | | | | [phone] | | mellitus); CHRONIC | | | | | | KIDNEY DISEASE STAGE | | | | | | III (MODERATE) | +--------+ + + + + [...] TABLET BY | 90 | 1 | 01/25/20 | | | tablet | MOUTH EVERY DAY | tablet | | 14 | 5 | + + + +---------+ + + | furosemide (LASIX) | TAKE ONE TABLET BY | 30 | 3 | 08/06/19 | | | 40 mg tablet | MOUTH EVERY DAY | tablet | | 15 | 5 | + + + +---------+ + + | insulin aspart | | | 0 | 03/01/20 | | | (NOVOLOG) 100 | | | | 14 | 5 | | units/mL injection | | | | | | + [...] TABLET BY | 90 | 3 | 08/22/19 | | | (PRINIVIL,ZESTRIL) | MOUTH EVERY DAY | tablet | | 15 | 5 | | 40 MG tablet [...] encounter Progress Notes Francois Pascal MD - 09/12/2014 1:42 PM PDT Quick Note: Ok for ma to notify patient that he has somewhat abnormal labs and would like to discuss w ronn 2 weeks documented in thi s encounter Plan of [...] | | | | | | [place] [address] | | | | | | [phone] | | | | | | | | +--------+---------+ + + + documented as of this encounter Procedures + +--------+ + + + | Procedure Name | Priori | Date/Time | Associated Diagnosis | Comments | | | ty | | | | + +--------+ + + + | URINALYSIS WITH | Routin | 09/10/2014 | HYPERTENSION NEC | Results for this | | MICROSCOPIC IF | e | 2:16 PM | | procedure are in the | | INDICATED | | PDT | | results section. | + +--------+ + + + | LIPID PANEL | Routin | 09/10/2014 | Hyperlipidemia | Results for this | | | e | 2:09 PM | | procedure are in the | | | | PDT | | results section. | + +--------+ + + + | CBC WITH | Routin | 09/10/2014 | HYPERTENSION NEC | Results for this | | DIFFERENTIAL | e | 2:09 PM | | procedure are in the | | | | PDT | | results section. | + +--------+ + + + | HEMOGLOBIN A1C | Routin | 09/10/2014 | Type 2 diabetes | Results for this | | | e | 2:09 PM | mellitus with | procedure are in the | | | | PDT | hyperglycemia (HCC) | results section. | + +--------+ + + + | COMPREHENSIVE | Routin | 09/10/2014 | HYPERTENSION NEC | Results for this | | METABOLIC PANEL | e | 2:09 PM | | procedure are in the | | | | PDT | | results section. | + +--------+ + + + documented in this encounter Results Urinalysis with Microscopic if Indicated (09/10/2014 2:16 PM PDT) + + + + + [...] + + + + | Specific | <=1.005 | 1.001 - 1.030 | [facility] | | | [place], | | | [facility] | | [...] [address] | [place] | [phone] | | [facility] | | [address] | | | - LABORATORY | | | | + + + + + Hemoglobin A1C (09/10/2014 2:09 PM PDT) + +---------+ + + + | Component | Value | Ref Range | Performed | Pathologist | | | | | At | Signature | + +---------+ + + + | Hemoglobin | 8.3 (H) | 4.3 - 6.0 % | [facility] | | | A1c | | | [facility] | | | | | | [facility]ICAL | | | | | | CENTER - | | | | | | LABORATORY | | + +---------+ + + + | Estimated | 192 | mg/dL | [facility] | | | [...] + | [facility] | [address] | [place] | [phone] | | [facility] | | [address] | | | - LABORATORY | | | | + + + + + Lipid Panel (09/10/2014 2:09 PM PDT) + +---------+ + + + | Component | Value | Ref Range | Performed | Pathologist | | | | | At | Signature | + +---------+ + + + | Triglycerid | 263 (H) | 35 - 160 mg/dL | [facility] | | | es | | | [facility] | | | | | | MEDICAL | | | | | | CENTER - | | | | | | LABORATORY | | + +---------+ + + + | Cholesterol | 139 (L) | 150 - 200 mg/dL | [facility] | | | | | | [facility] | | | | | | MEDICAL | | | | | | CENTER - | | | | | | LABORATORY | | + +---------+ + + + | HDL | 51 | 29 - 89 mg/dL | [facility] | | | | | | [facility] | | | | | | MEDICAL | | | | | | CENTER - | | | | | | LABORATORY | | + +---------+ + + + | Chol/HDL | 2.7 | | [facility] | | | Ratio | | | [facility] | | | | | | MEDICAL | | | | | | CENTER - | | | | | | LABORATORY | | + +---------+ + + + | LDL, | 35 | <=130 mg/dL | [facility] | | [...] [address] | [place] | [phone] | | [facility] | | [address] | | | - LABORATORY | | | | + + + + + CBC with Differential (09/10/2014 2:09 PM PDT) + + + + + + | Component | Value | Ref Range | Performed | Pathologist | | | | | At | Signature | + + + + + + | White Blood | 11.0 | 4.0 - 11.0 K/uL | [facility] | | | Cells | | | [facility] | | | | | | MEDICAL | | | | | | CENTER - | | | | | | LABORATORY | | + + + + + + | Red Blood | 4.02 | 3.70 - 5.20 | [facility] | | | Cells | | M/uL | [facility] | | | | | | MEDICAL | | | | | | CENTER - | | | | | | LABORATORY | | + + + + + + | Hemoglobin | 13.9 | 11.5 - 16.0 | [facility] | | | | | g/dL | [facility] | | | | | | MEDICAL | | | | | | CENTER - | | | | | | LABORATORY | | + + + + + + | Hematocrit | 42.2 | 34.0 - 47.0 % | [facility] | | | | | | [facility] | | | | | | MEDICAL | | | | | | CENTER - | | | | | | LABORATORY | | + + + + + + | MCV | 105.0 (H) | 83.0 - 101.0 fL | [facility] | | | | | | [facility] | | | | | | MEDICAL | | | | | | CENTER - | | | | | | LABORATORY | | + + + + + + | MCH | 34.6 | 28.0 - 35.0 pg | [facility] | | | | | | [facility] | | | | | | MEDICAL | | | | | | CENTER - | | | | | | LABORATORY | | + + + + + + | MCHC | 33.0 | 32.0 - 36.0 | [facility] | | | | | g/dL | [facility] | | | | | | MEDICAL | | | | | | CENTER - | | | | | | LABORATORY | | + + + + + + | RDW-CV | 13.5 | <15.0 % | [facility] | | | | | | [facility] | | | | | | MEDICAL | | | | | | CENTER - | | | | | | LABORATORY | | + + + + + + | Platelet | 236 | 140 - 440 K/uL | [facility] | | | Count | | | [facility] | | | | | | MEDICAL | | | | | | CENTER - | | | | | | LABORATORY | | + + + + + + | MPV | 8.4 | fL | [facility] | | | | | | [facility] | | | | | | MEDICAL | | | | | | CENTER - | | | | | | LABORATORY | | + + + + + + | % | 61.8 | 45.0 - 82.0 % | [facility] | | | Neutrophils | | | [facility] | | | | | | MEDICAL | | | | | | CENTER - | | | | | | LABORATORY | | + + + + + + | % | 21.4 | 20.0 - 45.0 % | [facility] | | | Lymphocytes | | | [facility] | | | | | | MEDICAL | | | | | | CENTER - | | | | | | LABORATORY | | + + + + + + | % Monocytes | 11.1 | 4.0 - 12.0 % | [facility] | | | | | | [facility] | | | | | | MEDICAL | | | | | | CENTER - | | | | | | LABORATORY | | + + + + + + | % | 5.2 (H) | 0.0 - 5.0 % | [facility] | | | Eosinophils | | | [facility] | | | | | | MEDICAL | | | | | | CENTER - | | | | | | LABORATORY | | + + + + + + | % Basophils | 0.5 | 0.0 - 1.0 % | [facility] | | | | | | [facility] | | | | | | MEDICAL | | | | | | CENTER - | | | | | | LABORATORY | | + + + + + + | Absolute | 6.80 | 1.80 - 8.50 | [facility] | [...] + + + + | Absolute | 1.20 (H) | 0.00 - 1.00 | [facility] | | | Monocytes | | K/uL | [facility] | | | | | | MEDICAL | | | | | | CENTER - | | | | | | LABORATORY | | + + + + + + | Absolute | 0.60 (H) | 0.00 - 0.40 | [facility] [...] | | Basophils | | K/uL | [facility] | | | | | [...] [address] | [place] | [phone] | | [facility] | | [address] | | | - LABORATORY | | | | + + + + + Comprehensive Metabolic Panel (09/10/2014 2:09 PM PDT) + + + + + + | Component | Value | Ref Range | Performed | Pathologist | | | | | At | Signature | + + + + + + | Na | 138 | 136 - 149 | [facility] | | | | | mmol/L | [facility] | | | | | | MEDICAL | | | | | | CENTER - | | | | | | LABORATORY | | + + + + + + | K | 4.2 | 3.5 - 5.1 | [facility] | | | | | mmol/L | [facility] | | | | | | MEDICAL | | | | | | CENTER - | | | | | | LABORATORY | | + + + + + + | Cl | 98 | 98 - 109 mmol/L | [facility] [...] + + + + | Glucose | 147 (H) | 70 - 109 mg/dL | [facility] | | | | | | [facility] | | | | | | MEDICAL | | | | | | CENTER - | | | | | | LABORATORY | | + + + + + + | BUN | 28 (H) | 7 - 18 mg/dL | [facility] | | | | | | [facility] | | | | | | MEDICAL | | | | | | CENTER - | | | | | | LABORATORY | | + + + + + + | Creatinine | 1.39 (H) | 0.60 - 1.30 | [facility] | | | | | mg/dL | [facility] | | | | | | MEDICAL | | | | | | CENTER - | | | | | | LABORATORY | | + + + + + + | eGFR if not | 36 (L)Comment: | >=60 | [facility] | | | | GLOMERULAR FILTRATION | mL/min/1.73m2 | [facility] | | | [facility] [facility] | RATE,ESTIMATED | | MEDICAL | | | | mL/min/1.95r1Atct than | | CENTER - | | [...] + + + + | Albumin | 3.8 | 3.2 - 5.0 g/dL | [facility] [...] ALT | 19 | 6 - 45 U/L | [facility] | | | | | | [facility] | | | | | | MEDICAL | | | | | | CENTER - | | | | | | LABORATORY | | + + + + + + | Alkaline | 54 | 40 - 110 U/L | [facility] [...] + + + + | Albumin/Kalani | 1.2 | | [facility] | | | bulin Ratio | | | [facility] | | | | | | MEDICAL | | | | | | CENTER - | | | | | | LABORATORY | | + + + + + + | BUN/Creatin | 20.1 | | [facility] | | | ine [...] [address] | [place] | [phone] | | [facility] | | [address] | | | - LABORATORY | | | | + + + + + documented in this encounter Visit Diagnoses + + | Diagnosis | + + | HYPERTENSION NEC Complications affecting other specified body systems, hypertension | + + | Hyperlipidemia Other and unspecified hyperlipidemia | + + | Type 2 diabetes mellitus with hyperglycemia (HCC) Type II or unspecified type | | diabetes mellitus without mention of complication, not stated as uncontrolled | + + | DM (diabetes mellitus) Type II or unspecified type diabetes mellitus without mention | | of complication, not stated as uncontrolled | + + | CHRONIC KIDNEY DISEASE STAGE III (MODERATE) Chronic kidney disease, Stage III | | (moderate) | + + documented in this encounter"
--- OUTSIDE RECORDS SUMMARY | ~2019-09-12 | XMS | Encounter Summary ---
Demographics + + + | Address | [address] | | | [place] [address] | + + + | Home Phone | | + + + | Preferred Language | Unknown | + + + | Marital Status | | + + + | Taoist Affiliation | Unknown | + + + | Race | Unknown | + + + | Ethnic Group | Unknown | + + + Author + + + | Author | [facility] | | | and [place] | + + + | Organization | [facility] | | | and [place] | + + + | Address | Unknown | + + + | Phone | Unavailable | + + + Support + + + + + | Name | Relationship | Address | Phone | + + + + + | Sigrid Lennon | ECON | [address] | | | | | [place] [address] | | + + + + + | Valentín Saleh | ECON | [address] | | | | | [place] [address] | | + + + + + | Roberto Carlos Lennon | LEVI | Unknown | | + + + + + Care Team Providers + +------+ + | Care Electronic Prepress Technician Name | Role | Phone | + [...] | instability | [address] | [place] | | | | [address] | [address] | [place], | | | | | (ICD-10-CM) | [place] | [place] [address] | | | | | - [address] | [place] | Phone: | | | | | (ICD-9-CM) - | [address] | [phone] | | | | | Gait | Phone: | Fax: | | | | | instability | [phone] | [phone] | | | | | Procedures | Fax: | | | | | | pt eval | [phone] | | +--------+ + + + + + Encounter Details +--------+---------+ + + + | Date | Type | Department | Care Team | Description | +--------+---------+ + + + | 12/26/ | Office | [facility] | Francois Pascal, | Impaired functional | | 2015 | Visit | MED CTR TH[facility]Y PT | MD [address] | mobility, balance, | | | | OP [address] | [address] [place], | gait, and endurance | | | | [place] | [place] [address] | (Primary Dx); | | | | [address] | [phone] | Posture imbalance; | | | | [phone] | | Left ankle pain | | | | | Cheyenne Caballero, | | | | | | EDGE BRUSHER [address] | | | | | | [place] | | | | | | [address] | | | | | | | [...] documented as of this encounter Progress Notes Cheyenne Caballero, EDGE BRUSHER - 12/26/2014 10:37 AM PDTFormatting of this note might be different f rom the original. [facility] TH[facility] PT OP [address] [place] [address] Physical Therapy Daily Treatment Note Date: 12/26/2014 Patient Information Patient Name: Alyson Lennon Date of : 1930 Age: 83 y.o. Encounter Diagnoses Code Name Primary? Z74.09 Impaired functional mobility, balance, gait, and endurance Yes R29.3 Posture imbalance M25.572 Left ankle pain Date of Onset: 10/24/14 Referring Provider: Francois Pascal MD Rehab Precautions Office Visit from 12/24/2014 in [facility] OP Rehab Precautions Precautions Comments fall risk Start Time: 0950 Stop time: 1035 Duration: 45 minutes Timed Treatment Codes: 45 minutes # of PT Visits to Date: 2 Subjective: Pt reports she was sore after last session. Her ankle/foot hurts "most of the time". Pain Assessment Pain Scale Used: NUMERIC Pain Rating Pre Assessment: 5 Pain Rating Post Assessment: 4 Location: left ankle Objective: Education: heel strike during ambulation Manual Treatment: to increase ankle and foot ROM for gait stability Manual stretching of left ankle into DF, PF, inversion, eversion Exercises for increased strength and flexibility of LE's to increase gait stability Rocker board fwd/back and side to side Sidestepping and bkwd walking on ramp-cues for equal step length Calf stretch on incline board Ankle alphabet-added to HEP Neuromuscular re-education to improve balance and safety Stance with small [place] and tandum stance on foam CGA Assessment: receptive to info given. Heel strike improved with Instruction and cueing. Left ankle ROM limited in all directions. Plan: Continue with manual therapy, LE strengthening, balance and gait training. Electronically signed by: Cheyenne Caballero PTA, 12/26/2014 10:38 Patient Name: Alyson Lennon/: 1930/ documented in this encounter Plan of Treatment +--------+---------+ + + + | Date | Type | Specialty | Care Team | Description | +--------+---------+ + + + | 12/06/ | Office | Cardiology | Stephenie Paul, | | | 2019 | Visit | | MD [address] [place] | | | | | | [place], | | | | | | [place] [address] | | | | | | [phone] | | | | | | | | +--------+---------+ + + + documented as of this encounter Visit Diagnoses + + | Diagnosis | + + | Impaired functional mobility, balance, gait, and endurance - Primary | + + | Posture imbalance Disorders of soft tissue, unspecified | + + | Left ankle pain Pain in joint, ankle and foot | + + documented in this encounter
--- OUTSIDE RECORDS SUMMARY | ~2019-09-12 | XMS | Encounter Summary ---
Demographics + + + | Address | [address] | | | [place] [address] | + + + | Home Phone | | + + + | Preferred Language | Unknown | + + + | Marital Status | | + + + | Tenriism Affiliation | Unknown | + + + | Race | Unknown | + + + | Ethnic Group | Unknown | + + + Author + + + | Author | [facility] | | | and [place] | + + + | Organization | [facility] | | | and [...] | | | | | [place] [address] | | + + + + + | Valentín Saleh | ECON | [address] | | | | | [place] [address] | | + + + + + | Roberto Carlos Lennon | LEVI | Unknown | | + + + + + Care Team Providers + +------+ + | Care Dining Car Hop Name | Role | Phone | + +------+ + | Francois Pascal MD | PCP | | + +------+ + Reason for Visit + +--------+ + | Reason | Onset | Comments | | | Date | | + +--------+ + | SNF Admission | 10/19/ | | | | 2019 | | + +--------+ + Encounter Details +--------+ + + + + | Date | Type | Department | Care Team | Description | +--------+ + + + + | 10/19/ | Telephone | [facility] | Francois Pascal, | SNF Admission | | 2019 | | [facility] [place] | [address] | | | | | [address] | [address] [place], | | | | | [place] | [place] [address] | | | | | [address] | [phone] | | | | | [phone] | | | +--------+ + + + [...] this encounter Miscellaneous Notes Telephone Encounter - Mary Mullen RN - 10/19/2018 1:44 [address] PDTDr. Thayer signed, and the orders were faxed back to [facility]. elephone Encounter - Mary Mullen RN - 10/19/2018 12:23 PM PDTCalled and spoke with Heidi, They will send over the same orders as last time for Dr Va Thayer to sign as Dr. Pascal is out of office until next week. elephone Encounter - Diamond Sebastian RN - 10/19/2018 11:06 AM PDTJuterrell from [facility] calls in and reports that she received a call from the caregiver at the Adult family home the patient was just admitted to. They are very concerned for the patient's safety. They do not have the staff or the equipment to car e for the patient safely. [facility] is asking for readmit orders to their long term care social [facility]. Same orders as last time. They are requesting these as soon as possible due to the concern for the patient's safety a nd well being. [phone] EXT: [phone] Francisca from [facility] documented in this encounter Plan of Treatment +--------+---------+ + + + | Date | Type | Specialty | Care Team | Description | +--------+---------+ + + + | 12/06/ | Office | Cardiology | Stephenie Paul, | | | 2019 | Visit | | MD [address] | | | | | | [place], | | | | | | [place] [address] | | | | | | [phone] | | | | | | | | +--------+---------+ + + + documented as of this encounter Visit Diagnoses Not on filedocumented in this encounter"
--- OUTSIDE RECORDS SUMMARY | ~2019-09-12 | XMS | Encounter Summary ---
Demographics + + + | Address | [address] | | | [place] [address] | + + + | Home Phone | | + + + | Preferred Language | Unknown | + + + | Marital Status | | + + + | Latter-Day Affiliation | Unknown | + + + | Race | Unknown | + + + | Ethnic Group | Unknown | + + + Author + + + | Author | [facility] | | | and [place] | + + + | Organization | [facility] | | | and [place] | + + + | Address | Unknown | + + + | Phone | Unavailable | + + + Support + + + + + | Name | Relationship | Address | Phone | + + + + + | Sigrid Lennon | ECON | [address] | | | | | [place] [address] | | + + + + + | Valentín Saleh | ECON | [address] | | | | | [place] [address] | | + + + + + | Roberto Carlos Lennon | LEVI | Unknown | | + + + + + Care Team Providers + +------+ + | Care Travel Cota Name | Role | Phone | + +------+ + | Francois Pascal MD | PCP | | + +------+ + Reason for Visit + +--------+ + | Reason | Onset | Comments | | | Date | | + +--------+ + | Blood Pressure Check | 02/05/ | | | (Screening) | 2013 | | + +--------+ + Encounter Details +--------+ + + + + | Date | Type | Department | Care Team | Description | +--------+ + + + + | 02/05/ | Telephone | [facility] [place] | [place], | Blood Pressure Check | | 2013 | | NEPHROLOGY [address] | [address] | (Screening) | | | | [address] | [address] | | | | | [place] | [address] [place] | | | | | [address] | [address] | | | | | [phone] | | | +--------+ + + + [...] this encounter Miscellaneous Notes Telephone Encounter - Zaynab Humphries RN - 02/05/2014 4:32 PM PSTMessage left notifying patient of no medications changes at this time, return call was requested. Electronically si gned by Zaynab Humphries RN at 02/05/2014 4:34 PM PSTTelephone Encounter - Karin Herndon ARNP - 02/05/2014 3:38 PM PSTPatient dropped off blood pressure record. BP appear w ell controlled without hypotension, systolic BP 117-140/50-70s. No change to regimen. Electr onically signed by LAURO Reaves at 02/05/2014 3:40 PM PSTdocumented in this encounter Plan of [...] | | | | | | [place] [address] | | | | | | [phone] | | | | | | | | +--------+---------+ + + + documented as of this encounter Visit Diagnoses Not on filedocumented in this encounter"
--- OUTSIDE RECORDS SUMMARY | ~2019-09-12 | XMS | Encounter Summary ---
Demographics + + + | Address | [address] | | | [place] [address] | + + + | Home Phone | | + + + | Preferred Language | Unknown | + + + | Marital Status | | + + + | Amish Affiliation | Unknown | + + + | Race | Unknown | + + + | Ethnic Group | Unknown | + + + Author + + + | Author | [facility] | | | and [place] | + + + | Organization | [facility] | | [...] | | | | | [place] [address] | | + + + + + | Valentín Saleh | ECON | [address] | | | | | [place] [address] | | + + + + + | Roberto Carlos Lennon | LEVI | Unknown | | + + + + + Care Team Providers + +------+ + | Care Application Release Manager Name | Role | Phone | + +------+ + | Francois Pascal MD | PCP | | + +------+ + Encounter Details +--------+ + + + + | Date | Type | Department | Care Team | Description | +--------+ + + + + | 11/26/ | Orders Only | [facility] [place] | [place], | CHRONIC KIDNEY | | 2013 | | NEPHROLOGY [address] | [address] | DISEASE STAGE III | | | | [address] | [address] [facility] | (MODERATE) (Primary | | | | [place], [place] | [address] [place], [place] | Dx) | | | | [address] | [address] | | | | | [phone] | | | +--------+ + + + [...] documented as of this encounter Progress Notes Anika Tobias RN - 11/26/2013 1:32 PM PDTLab order for nephrology appointment on 12/31/13 sent to [facility]. documented in this encounter Plan of Treatment +--------+---------+ + + + | Date | Type | Specialty | Care Team | Description | +--------+---------+ + + + | 12/06/ | Office | Cardiology | Stephenie Paul, | | | 2019 | Visit | | MD [address] | | | | | | [place], | | | | | | [place] [address] | | | | | | [phone] | | | | | | | | +--------+---------+ + + + documented as of this encounter Visit Diagnoses + + | Diagnosis | + + | CHRONIC KIDNEY DISEASE STAGE III (MODERATE) - Primary Chronic kidney disease, Stage | | III (moderate) | + + documented in this encounter"
--- OUTSIDE RECORDS SUMMARY | ~2019-09-12 | XMS | Encounter Summary ---
Demographics + + + | Address | [address] | | | [place] [address] | + + + | Home Phone | | + + + | Preferred Language | Unknown | + + + | Marital Status | | + + + | Yazidism Affiliation | Unknown | + + + | Race | Unknown | + + + | Ethnic Group | Unknown | + + + Author + + + | Author | [facility] | | | and Clarkeana | + + + | Organization | [facility] | [...] | | | | | [place] [address] | | + + + + + | Valentín Saleh | ECON | [address] | | | | | [place] [address] | | + + + + + | Roberto Carlos Lennon | LEVI | Unknown | | + + + + + Care Team Providers + +------+ + | Care Band Sawmill Operator Name | Role | Phone | + +------+ + | Francois Pascal MD | PCP | | + +------+ + Reason for Referral Diagnostic/Screening (Urgent) +--------+--------+ + + + + | Status | Reason | Specialty | Diagnoses / | Referred By | Referred To | | | | | Procedures | Contact | Contact | +--------+--------+ + + + + | Closed | | Radiology | Diagnoses | [place], | [facility] | | | | | Carotid | Francois Tello MD | [address] | | | | | stenosis, | [address] | [place], | | | | | bilateral | [address] | [place] | | | | | Procedures | [place] | [address] | | | | | MRI | [place] | Phone: | | | | | Angiogram | [address] | [phone] | | | | | Neck w wo | Phone: | Fax: | | | | | Contrast | [phone] | [phone] | | | | | | Fax: | | | | | | | [phone] | | +--------+--------+ + + + + Reason for Visit Diagnostic/Screening (Urgent) +--------+--------+ + + + + | Status | Reason | Specialty | Diagnoses / | Referred By | Referred To | | | | | Procedures | Contact | Contact | +--------+--------+ + + + + | Closed | | Radiology | Diagnoses | [place], | [facility] | | | | | Carotid | Francois Tello MD | [address] | | | | | stenosis, | [address] | [place], | | | | | bilateral | [address] | [place] | | | | | Procedures | [place] | [address] | | | | | MRI | [place], [place] | Phone: | | | | | Angiogram | [address] | [phone] | | | | | Neck w wo | Phone: | Fax: | | | | | Contrast | [phone] | [phone] | | | | | | Fax: | | | | | | | [phone] | | +--------+--------+ + + + + Encounter Details +--------+ + + + + | Date | Type | Department | Care Team | Description | +--------+ + + + + | 12/05/ | Hospital | [facility] | Francois Pascal, | Carotid stenosis, | | 2015 | Encounter | [facility] MRI [address] | bilateral | | | | [address] [place], | [address] [place], | | | | | [place] [address] | [place] [address] | | | | | [phone] | [phone] | | | | | | | [...] | | | | mellitus) (HCC) | | | | | | [...] | | | | mellitus) ([facility]) | DINNER | | | | | + + + +---------+ + + | polyethylene | Take 1 diluted | 255 g | 0 | 11/15/19 | | | glycol (MIRALAX) | capful by mouth 3 | | | 15 | 6 | | powder | times daily (before | | | | | | | meals). | | | | | + + + +---------+ + + | simvastatin | TAKE ONE-HALF TABLET | 45 | 3 | 10/08/19 | | | (ZOCOR) 40 mg tablet | BY MOUTH EVERY DAY | tablet | | 15 | 6 | + + + +---------+ + + documented as of this encounter Progress Notes Francois Pascal MD - 12/05/2014 2:56 PM PDT Quick Note: Studies are abnormal, Please schedule and appointment within a month to discuss. documented in thi s encounter Plan of [...] | | | | | | [place] [address] | | | | | | [phone] | | | | | | | | +--------+---------+ + + + documented as of this encounter Procedures + +--------+ + + + | Procedure Name | Priori | Date/Time | Associated Diagnosis | Comments | | | ty | | | | + +--------+ + + + | MRI ANGIOGRAM NECK W | Routin | 12/05/2014 | Carotid stenosis, | Results for this | | WO CONTRAST | e | 9:37 AM | bilateral | procedure are in the | | | | PDT | | results section. | + +--------+ + + + documented in this encounter Results MRI Angiogram Neck w wo Contrast (12/05/2014 9:37 AM PDT) + + | Specimen | + + | | + + + + + | Narrative | Performed At | + + + | MRI ANGIOGRAM NECK W WO CONTRAST 12/05/2014 9:11 AM HISTORY: | [facility] | | Carotid stenosis. COMPARISON: None. PROTOCOL: MRA of the neck | [facility] | | was performed with axial 3-D wztg-up-aqhsgu technique without | [facility] | | contrast and coronal dynamic imaging after injection of 5 cc Gadavist. | - IMAGING | | Reconstruction views were obtained. A lower dose of contrast was | | | administered due to the patient's relatively decreased renal | | | function. FINDINGS: Limited evaluation of the brain shows no | | | acute findings. The aortic arch, brachiocephalic arteries, and | | | subclavian arteries are patent. Right Carotid: The common carotid | | | artery is patent. There is normal branching of the ICA and ECA. There | | | is moderate atherosclerosis at the carotid bifurcation extending | | | into the proximal ICA and ECA leading up to 50% stenosis in the | | | proximal ICA and ECA. Left Carotid: The common carotid artery is | | | patent. There is normal branching of the ICA and ECA. Moderate | | | atherosclerosis is noted of the carotid bulb extending into the | | | proximal ICA and ECA. Irregularity is present of the proximal ICA with | | | up to 60% stenosis. There is up to 50% stenosis of the proximal ECA. | | | Vertebrals: The right vertebral artery is significantly | | | hypoplastic and has a thin, wispy appearance. This is not well seen | | | on the axial 3-D jlwm-jr-kcbkcx images due to the small size. The | | | left vertebral artery is patent. A left posterior inferior cerebellar | | | artery is present. Bilateral anterior inferior cerebellar arteries | | | are seen. Limited evaluation of the neck soft tissue and osseous | | | structures demonstrate no acute findings. The upper chest is | | | unremarkable. IMPRESSION - Moderate atherosclerosis of the right | | | carotid bifurcation leading up to 50% stenoses in the proximal ICA | | | and ECA. Moderate atherosclerosis of the left carotid bulb leading | | | up to 60% stenosis in the proximal ICA and up to 50% stenosis in the | | | proximal ECA. Significant hypoplasia of the right vertebral | | | artery, patent left vertebral artery. Dictated and Signed by: | | | James Johnson MD Electronically signed: 12/05/2014 11:59 AM | | + + + + + | Procedure Note | + + | Al, Rad Results In - 12/05/2014 12:02 PM PDT MRI ANGIOGRAM NECK W WO CONTRAST | | 12/05/2014 9:11 AMHISTORY: Carotid stenosis.COMPARISON: None.PROTOCOL: MRA of the neck | | was performed with axial 3-D yqed-at-ngdmbo techniquewithout contrast and coronal | | dynamic imaging after injection of 5 cc Gadavist.Reconstruction views were obtained. A | | lower dose of contrast was administereddue to the patient's relatively decreased renal | | function.FINDINGS:Limited evaluation of the brain shows no acute findings.The aortic | | arch, brachiocephalic arteries, and subclavian arteries are patent.Right Carotid: The | | common carotid artery is patent. There is normal branching ofthe ICA and ECA. There is | | moderate atherosclerosis at the carotid bifurcationextending into the proximal ICA and | | ECA leading up to 50% stenosis in theproximal ICA and ECA.Left Carotid: The common | | carotid artery is patent. There is normal branching ofthe ICA and ECA. Moderate | | atherosclerosis is noted of the carotid bulb extendinginto the proximal ICA and ECA. | | Irregularity is present of the proximal ICA withup to 60% stenosis. There is up to 50% | | stenosis of the proximal ECA.Vertebrals: The right vertebral artery is significantly | | hypoplastic and has athin, wispy appearance. This is not well seen on the axial 3-D | | dpad-wz-binjfjlspkdk due to the small size. The left vertebral artery is patent. A | | leftposterior inferior cerebellar artery is present. Bilateral anterior | | inferiorcerebellar arteries are seen.Limited evaluation of the neck soft tissue and | | osseous structures demonstrate noacute findings.The upper chest is | | unremarkable.IMPRESSION -Moderate atherosclerosis of the right carotid bifurcation | | leading up to 50%stenoses in the proximal ICA and ECA.Moderate atherosclerosis of the | | left carotid bulb leading up to 60% stenosis inthe proximal ICA and up to 50% stenosis | | in the proximal ECA.Significant hypoplasia of the right vertebral artery, patent left | | vertebralartery.Dictated and Signed by: James Johnson MD Electronically signed: | | 12/05/2014 11:59 AM | | | |Vertebrals: The right vertebral artery is significantly hypoplastic and has a | |thin, wispy appearance. This is not well seen on the axial 3-D upho-ar-iwrxaf | |images due to the small size. The left vertebral artery is patent. A left | |posterior inferior cerebellar artery is present. Bilateral anterior inferior | |cerebellar arteries are seen. | | | |Limited evaluation of the neck soft tissue and osseous structures demonstrate no | |acute findings. | | | |The upper chest is unremarkable. | | | |IMPRESSION - | |Moderate atherosclerosis of the right carotid bifurcation leading up to 50% | |stenoses in the proximal ICA and ECA. | | | |Moderate atherosclerosis of the left carotid bulb leading up to 60% stenosis in | |the proximal ICA and up to 50% stenosis in the proximal ECA. | | | |Significant hypoplasia of the right vertebral artery, patent left vertebral | |artery. | | | |Dictated and Signed by: James Johnson MD | | Electronically signed: 12/05/2014 11:59 AM | + + + + + + + | Performing | Address | City/State/Zipcode | Phone Number | | Organization | | | | + + + + + | [facility] | [address] | [place] | [phone] | | [facility] | | [address] | | | - IMAGING | | | | + + + + + documented in this encounter Visit Diagnoses + + | Diagnosis | + + | Carotid stenosis, bilateral Occlusion and stenosis of multiple and bilateral | | precerebral arteries without mention of cerebral infarction | + + documented in this encounter Administered Medications + +--------+ +-------+------+------+ | Medication Order | MAR | Action | Dose | Rate | Site | | | Action | Date | | | | + +--------+ +-------+------+------+ | gadobutrol (GADAVIST) injection | Given | 12/06/19 | 5 mLs | | | | 5 mL 5 mL, Intravenous, ONCE | | 15 9:12 | | | | | PRN, Other, Starting Aarti 12/05/14 | | AM PDT | | | | | at 0911, For 1 dose, MRI | | | | | | + +--------+ +-------+------+------+ +---+---+ | | | +---+---+ documented in this encounter"
--- OUTSIDE RECORDS SUMMARY | ~2019-09-12 | XMS | Encounter Summary ---
Demographics + + + | Address | [address] | | | [place] [address] | + + + | Home Phone | | + + + | Preferred Language | Unknown | + + + | Marital Status | | + + + | Zoroastrianism Affiliation | Unknown | + + + | Race | Unknown | + + + | Ethnic Group | Unknown | + + + Author + + + | Author | [facility] | | | and Clarkeana | + + + | Organization | [facility] | | | and [...] | | | | | [place] [address] | | + + + + + | Valentín Saleh | ECON | [address] | | | | | [place] [address] | | + + + + + | Roberto Carlos Lennon | LEVI | Unknown | | + + + + + Care Team Providers + +------+ + | Care Publishing Director Name | Role | Phone | + [...] | (MODERATE) (Primary | | | | [place] [address] | [place] [address] | Dx); Diabetes | | | | [phone] | [phone] | mellitus due to | | | [...] replacement. [facility] She declines a pain medication for this. [...] VSD Father 50 Pneumonia Family Hx of [place]'s chorea Sister and 2 brothers: CAD, [place]'s Disease to [place] - with 2 Healthy Children No kidney disease in family. Social History: Born in [facility] for 46 years. and Remarried [...] [place], | | | | | | [place] [address] | | | | | | [phone] | | | | | | | [...]
--- OUTSIDE RECORDS SUMMARY | ~2019-09-12 | XMS | Encounter Summary ---
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 [address] | | | | | stage 3 | [place] | [address] | | | | | (moderate) | [place] | [address] | | | | | (HCC) | [address] | [place], | | | | | Hypertension | Phone: | [place] [address] | | | | | , renal | [phone] | Phone: | | | | | disease | Fax: | [phone] | | | | | Procedures | [phone] | Fax: | | | | | [place] OFFICE | | [phone] | | | | | OUTPATIENT | | | | | | | VISIT 25 | | | | | | | MINUTES | | | +--------+--------+ + + + + Encounter Details +--------+---------+ + + + | Date | Type | Department | Care Team | Description | +--------+---------+ + + + | 04/05/ | Office | [facility] [place] | [place], | CHRONIC KIDNEY | | 2017 | Visit | NEPHROLOGY [address] | [address] | DISEASE STAGE III | | | | [address] | [address] [facility] | (MODERATE) (Primary | | | | [place] [address] | [address] | Dx); Hypertension, | | | | [address] | [address] | renal disease, stage | | | | [phone] | | 1-4 or unspecified | | | | | | chronic kidney | | | | | | disease; | | | | | | Uncontrolled type 2 | | | | | | diabetes mellitus | | | | | | with stage 3 chronic | | | | | | kidney disease, | | | | | | unspecified long | | | | | | term insulin use | | | | | | status (HCC); | | | | | | Vitamin D deficiency | +--------+---------+ + + + Social [...] + + + | Blood Pressure | 140/78 | 04/05/2016 10:50 AM | | | | | PST | | + + + + + | Pulse | 65 | 04/05/2016 10:50 AM | | | | | PST | | + + + + + | Temperature | - | - | | + + + + + | Respiratory Rate | - | - | | + + + + + | Oxygen Saturation | 97% | 04/05/2016 10:50 AM | | | | | PST | | + + + + + | Inhaled Oxygen | - | - | | | Concentration | | | | + + + + + | Weight | 72.5 kg (159 lb 12.8 | 04/05/2016 10:50 AM | | | | oz) | PST | | + + + + + | Height | - | - | | + + + + + | Body Mass Index | 29.23 | 02/17/2016 1:01 PM | | | | | PST | | + + + + + documented in this encounter Patient Instructions Patient Instructions Kemar Herndon ARNP - 04/05/2016 11:16 AM PSTPlease monitor b lood pressure at home. Goal 110-130/60-80. Notify office if not within goal. Diabetic goals: Hgb A1c <7%. Please avoid taking NSAIDs. These are some commonly used NSAIDs: ibuprofen (Motrin,Advil), naproxen (Aleve, Naprosyn), celecoxib (Celebrex), indomethacin (Indocin), meloxicam (Mobic). documented in this encounter Progress Notes Kemar Herndon ARNP - 04/05/2016 10:35 AM PSTFormatting of this note might be diff erent from the original. Nephrology Follow-up Visit Visit date: 04/05/2016 Primary care provider: Francois Pascal MD Follow-up type: 6 months HPI: Alyson Lennon is a 85 y.o. 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 -type 2 diabetes mellitus with neuropathy -hypertension -CAD with CABG x 3 vessels [address] Corado -serum creatinine has fluctuated from 1.1-1.4 mg/dl since 2010, infrequently 1.6-1.7 mg/dl Patient is hoping to have ankle surgery in the near future. She is waiting on cardiac clear ance from Dr. Corado. She reports her blood pressure is lower than here at home, 110-120 mmHg systolic. No changes to urination, no dysuria. ROS: Chronic fatigue, at baseline, reports not being able to do much due to ankle injury; l eft ankle chronic swelling, urinary frequency and urgency, no worse than usual. Denies anore jhonathan, chest pain, dyspnea, orthopnea, nausea, vomiting, dysuria, hematuria. PMH: Patient Active Problem List Diagnosis Date Noted DM (diabetes mellitus) ([facility]) 12/27/2011 Priority: High Glossitis Priority: High Hyperlipidemia Priority: High CHRONIC KIDNEY DISEASE STAGE III (MODERATE) Priority: High Essential hypertension with goal blood pressure less than 130/80 05/25/2010 Priority: High OSTEOARTHRITIS, ANKLE, LEFT 01/21/2010 Priority: High Gout, unspecified 01/21/2010 Priority: Medium Note Last Updated: 12/07/2014 ICD-10 Record update Gingival bleeding 12/02/2015 Diabetic neuropathy ([facility]) 11/26/2015 Unsteady 12/24/2014 Posture imbalance 12/24/2014 Impaired [...] 10/21/2014 Note Last Updated: 01/08/2015 Problem list 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 worker utility Cerebral contusion without loss of consciousness, unspecified laterality, sequela ([facility]) 10/21/2014 Transient alteration of awareness 10/17/2014 Head contusion, initial encounter 10/17/2014 Note Last Updated: 01/08/2015 Problem list ash worker utility Left ankle pain 07/30/2014 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/27/2012 Note Last Updated: 12/16/2015 Problem list ash worker utility Preventative health care 03/23/2012 Note Last Updated: 09/27/2012 CRSC:03/23/2002normal except for redundancy and atonicity Next Due: Mammo:03/02/2012 benign Next:03/02/2013 Pap:03/24/2009 negative Next: CAROTID STENOSIS AMAUROSIS FUGAX DEMYELINATING DISEASE, CENTRAL NERVOUS SYSTEM FRACTURE, ANKLE, LEFT VITAMIN D DEFICIENCY Hypertension, renal disease DM type 2, uncontrolled, with renal complications (HCC) Coronary artery disease involving [place] coronary artery of [place] heart without angina pectoris Note Last Updated: [...] Outpatient Prescriptions Marked as Taking for the 04/05/16 encounter (Office Visit) with LAURO Kern Medication Sig Dispense Refill allopurinol (ZYLOPRIM) 100 mg tablet TAKE ONE TABLET BY MOUTH TWICE A DAY 180 tablet 2 amLODIPine (NORVASC) 5 mg tablet TAKE ONE TABLET BY MOUTH EVERY DAY 90 tablet 3 aspirin (ASPIRIN EC) 81 MG EC tablet Take 1 tablet by mouth Daily. atorvaSTATin (LIPITOR) 40 mg tablet Take 1 tablet by mouth nightly. 90 tablet 3 Zpyreoe-Ytegngyhv-Jwlokrq D (CALCIUM 500 PO) Take by mouth Daily. colchicine 0.6 mg tablet 1-2 tablets by mouth as needed folic acid 1 mg tablet Take 1 tablet by mouth Daily. 90 tablet 1 furosemide (LASIX) 40 mg tablet TAKE ONE TABLET BY MOUTH EVERY DAY 90 tablet 3 HYDROcodone-acetaminophen (NORCO) 5-325 mg per tablet Take 1 tablet by mouth as needed. insulin glargine (LANTUS) 100 units/mL injection (vial) 110 u sq qhs 50 mL 6 lisinopril (PRINIVIL, ZESTRIL) 20 mg tablet TAKE ONE TABLET BY MOUTH EVERY DAY 30 table t 11 methotrexate 2.5 mg tablet TAKE 5 TABLETS BY MOUTH ONCE WEEKLY Indications: Rheumatoid Arthritis 20 tablet 2 metoprolol succinate (TOPROL-XL) 200 mg ER tablet TAKE ONE TABLET BY MOUTH EVERY DAY 90 tablet 3 multivitamin (THERAGRAN) per tablet Take 1 by mouth daily NOVOLOG 100 UNIT/ML injection INJECT 35 UNITS UNDER THE SKIN 3 TIMES DAILY PRIOR TO MARIBETH LS 20 mL 3 SITagliptin (JANUVIA) 100 mg tablet TAKE ONE TABLET BY MOUTH EVERY DAY 90 tablet 1 Allergies Allergen Reactions Codeine Sulfate Nausea And Vomiting Darvon Nausea Only Estrogens Patient can't remember Pneumococcal Vaccines Other (See Comments) Thinks it was a Prevnar, arm became red/sore/swollen Physical Exam: BP 140/78 mmHg | Pulse 65 | Wt 72.485 kg (159 lb 12.8 oz) | SpO2 97% Constitutional: Appears well-developed and well-nourished. No distress. ENT: Oropharynx is clear and oral mucosa is moist. Cardiovascular: Normal rate, regular rhythm and normal heart sounds. 1/6 systolic murmur. Exam reveals no gallop and no friction rub. No JVD. No obvious peripheral edema, compression stockings in place and brace on left lower leg. Lungs: Respiratory effort normal and breath sounds normal. No crackles or wheezes. Abdominal: Soft. Bowel sounds are present. No distension or tenderness. Musculoskeletal: No joint swelling. No muscle tenderness. Skin: Skin is warm. No rash over extremities. Neurological: Alert. Memory intact. Reviewed labs with patient. Hospital Outpatient Visit on 04/01/2016 Component Date Value Ref Range Status NA 04/01/2016 143 136-149 mmol/L Final K 04/01/2016 4.1 3.5-5.1 mmol/L Final CL 04/01/2016 105 98-109 mmol/L Final CO2 04/01/2016 30 24-31 mmol/L Final ANION GAP 04/01/2016 8 3-16 mmol/L Final GLUCOSE 04/01/2016 104 70-109 mg/dL Final BUN 04/01/2016 16 7-18 mg/dL Final Creatinine, Serum/Plasma 04/01/2016 1.12 0.60-1.30 mg/dL Final eGFR if not 04/01/2016 46* >=60 mL/min/1.73m2 Final CALCIUM 04/01/2016 9.5 8.3-10.5 mg/dL Final ALBUMIN 04/01/2016 3.4 3.2-5.0 g/dL Final PHOSPHORUS 04/01/2016 3.8 2.5-4.6 mg/dL Final BUN/CREA 04/01/2016 14.3 Final PTH Intact 04/01/2016 27 12-88 pg/mL Final PROTEIN,RANDOM URINE 04/01/2016 48* <6 mg/dL Final Creatinine, Urine, Random 04/01/2016 75 Final PRO/CREA RATIO,URINE 04/01/2016 0.64* <0.20 mg/mg Final Hospital Outpatient Visit on 03/11/2016 Component Date Value Ref Range Status LVEF-TTE TRANSTHORACIC ECHO 03/11/2016 55 Final ASSESSMENT AND PLAN: 1. CKD (chronic kidney disease), stage III N18.3 585.3 -serum creatinine is cur rently at baseline -stable subnephrotic range proteinuria, on lisinopril -no hyperkalemia -reviewed with patient the goal for therapy; hypertensive and glycemic control, as well as avoiding nephrotoxins 2. Hypertension, renal disease, stage 1-4 or unspecified chronic kidney disease I12 .9 403.90 Blood pressure is within goal on lisinopril, amlodipine, furosemide and me troprolol. -no change to regimen N18.9 3. DM type 2, uncontrolled, with renal complications (HCC) E11.29 250.42 Di scussed goals. Continue working with primary provider for tighter control. E11.65 4. Vitamin D deficiency E55.9 268.9 PTH was 111 in January, now 27. It is unclear what is causing this variability. Calcium and phosphorus are fine. -monitor -recheck vitamin D 25 OH Follow up: 6 months Labs: renal panel, PTH, vitamin D 25 OH, uric acid level Patient verbalized agreement and understanding of above plan. CC: Francois Pascal MD YNdochadwick roman this encounter Plan of Treatment +--------+---------+ + + + | Date | Type | Specialty | Care Team | Description | +--------+---------+ + + + | 12/06/ | Office | Cardiology | Stephenie Paul, | | | 2019 | Visit | | MD Bob Sheehan | | | | | | [place], | | | | | | [place] [address] | | | | | | [phone] | | | | | | | | +--------+---------+ + + + documented as of this encounter Visit Diagnoses + + | Diagnosis | + + | CHRONIC KIDNEY DISEASE STAGE III (MODERATE) - Primary Chronic kidney disease, Stage | | III (moderate) | + + | Hypertension, renal disease, stage 1-4 or unspecified chronic kidney disease | + + | Uncontrolled type 2 diabetes mellitus with stage 3 chronic kidney disease, unspecified | | chcf insulin use status | + + | Vitamin D deficiency Unspecified vitamin D deficiency | + + documented in this encounter
--- OUTSIDE RECORDS SUMMARY | ~2019-09-12 | XMS | Encounter Summary ---
Demographics + + + | Address | [address] | | | [place] [address] | + + + | Home Phone | | + + + | Preferred Language | Unknown | + + + | Marital Status | | + + + | Evangelical Affiliation | Unknown | + + + | Race | Unknown | + + + | Ethnic Group | Unknown | + + + Author + + + | Author | [facility] | | | and [place] | + + + | Organization | [facility] | | | and [place] | + + + | Address | Unknown | + + + | Phone | Unavailable | + + + Support + + + + + | Name | Relationship | Address | Phone | + + + + + | Sigrid Lennon | ECON | [address] | | | | | [place] [address] | | + + + + + | Valentín Saleh | ECON | [address] | | | | | [place] [address] | | + + + + + | Roberto Carlos Lennon | LEVI | Unknown | | + + + + + Care Team Providers + +------+ + | Care Skatesman Name | Role | Phone | + +------+ + | Francois Pascal MD | PCP | | + +------+ + Reason for Visit + + + | Reason | Comments | + + + | Chronic Kidney | Stage 4 | | Disease | | + + [...] | hypertension | [address] | [employer] [address] | | | | | Chronic | [place] | [address] | | | | | kidney | [place] | [address] | | | | | disease, | [address] | [place], | | | | | stage III | Phone: | [place] [address] | | | | | (moderate) | [phone] | Phone: | | | | | (HCC) Type | Fax: | [phone] | | | | | II or | [phone] | Fax: | | | | | unspecified | | [phone] | | | | | type | [...] | | | | | | | ([facility]) | | | | | | | Procedures | | | | | | | [place] OFFICE | | | | | | | OUTPATIENT | | | | | | | VISIT 25 | | | | | | | MINUTES | | | +--------+--------+ + + + + Encounter Details +--------+---------+ + + + | Date | Type | Department | Care Team | Description | +--------+---------+ + + + | 06/11/ | Office | [facility] [place] | [place], | CKD (chronic kidney | | 2016 | Visit | NEPHROLOGY [address] | [address] | disease), stage IV | | | | [address] | [address] | ([facility]) (Primary Dx); | | | | [place], [place] | [address] | Hypertension, renal | | | | [address] | [address] | disease, stage 1-4 | | | | [phone] | | or unspecified | | | | | | chronic kidney | | | | | | disease; DM type 2, | | | | | | uncontrolled, with | | | | | | renal complications | | | | | | (HCC); Vitamin D | | | | | | deficiency; Upper | | | | | | respiratory tract | | | | | | infection, | | | | | | unspecified upper | | | | | | respiratory | | | | | | infection | +--------+---------+ + + + Social History [...] + + + | Blood Pressure | 112/60 | 06/12/2015 10:26 AM | | | | | PDT | | + + + + + | Pulse | 71 | 06/12/2015 10:26 AM | | | | | PDT | | + + + + + | Temperature | 36.6 C (97.8 F) | 06/12/2015 10:26 AM | | | | | PDT | | + + + + + | Respiratory Rate | - | - | | + + + + + | Oxygen Saturation | 95% | 06/12/2015 10:26 AM | | | | | PDT | | + + + + + | Inhaled Oxygen | - | - | | | Concentration | | | | + + + + + | Weight | 67 kg (147 lb 11.2 | 06/12/2015 10:26 AM | | | | oz) | PDT | | + + + + + | Height | - | - | | + + + + + | Body Mass Index | 27.01 | 04/14/2015 11:32 AM | | | | | PST | | + + + + + documented in this encounter Patient Instructions Patient Instructions Kemar Herndon ARNP - 06/12/2015 10:52 AM PDTDecrease lisinop ril to 20 mg daily. If you do not start feeling better, please make an appointment with Dr. Pascal. Blood pressure goal 110-130 on top number. Please avoid taking NSAIDs. These are some commonly used NSAIDs: ibuprofen (Motrin,Advil), naproxen (Aleve, Naprosyn), celecoxib (Celebrex), indomethacin (Indocin), meloxicam (Mobic). Stay hydrated. documented in this encounter Progress Notes Kemar Herndon ARNP - 06/12/2015 10:13 AM PDTFormatting of this note might be diff erent from the original. Nephrology Follow-up Visit Visit date: 06/12/2015 Primary care provider: Francois Pascal MD Follow-up type: 6 months HPI: Alyson Lennon is a 84 y.o. female following up for CKD. 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 Corado, hyperlipidemia, gout, glossitis, and vitamin D deficiency. -serum creatinine has fluctuated from 1.1-1.4 mg/dl since 2010 Patient reports having "the flu" for the past few weeks. She has had a cough and has been w eak, tired with poor appetite. She has not been evaluated by a medical provider because symp toms have been slowly improving. No fever/chills. She stumbled on uneven ground yesterday an d fell at home, possibly hitting her head. No loss of consciousness, no headache, pain or pr oblems today. She is now using her walker consistently. Blood pressure has been low normal, approximately 100 mmHg systolic. ROS: Denies chest pain, dyspnea, orthopnea, edema, nausea, vomiting, dysuria, hematuria, ur inary frequency. 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 30 tablet 0 Allergies Allergen Reactions Codeine Sulfate Nausea And Vomiting Darvon Nausea Only Estrogens Patient can't remember Pneumococcal Vaccines Other (See Comments) Thinks it was a Prevnar, arm became red/sore/swollen Physical Exam: BP 112/60 mmHg | Pulse 71 | Temp(Src) 36.6 C (97.8 F) (Temporal) | Wt 66.996 kg (147 lb 11.2 oz) | SpO2 95% Constitutional: Appears well-developed and well-nourished. No distress. ENT: Oropharynx is clear and oral mucosa is moist. Cardiovascular: Normal rate, regular rhythm and normal heart sounds. Exam reveals no perez p and no friction rub. No murmur heard. No JVD. Trace edema, compression stockings in place. Lungs: Mild crackles bases, respiratory effort normal and breath sounds normal. No wheezes. Abdominal: Soft. Bowel sounds are present. No distension or tenderness. Musculoskeletal: No joint swelling. No muscle tenderness. Skin: Skin is warm. No rash over extremities. Neurological: Alert. Memory intact. Reviewed labs with patient. Hospital Outpatient Visit on 06/12/2015 Component Date Value Ref Range Status PROTEIN,RANDOM URINE 06/12/2015 40* <10 mg/dL Final Creatinine, Urine, Random 06/12/2015 54 Final PRO/CREA RATIO,URINE 06/12/2015 0.74* <0.20 mg/mg Final Hospital Outpatient Visit on 06/03/2015 Component Date Value Ref Range Status NA 06/03/2015 137 136-149 mmol/L Final K 06/03/2015 3.8 3.5-5.1 mmol/L Final CL 06/03/2015 98 98-109 mmol/L Final CO2 06/03/2015 26 24-31 mmol/L Final ANION GAP 06/03/2015 13 3-16 mmol/L Final GLUCOSE 06/03/2015 191* 70-109 mg/dL Final BUN 06/03/2015 43* 7-18 mg/dL Final Creatinine, Serum/Plasma 06/03/2015 1.67* 0.60-1.30 mg/dL Final eGFR if not 06/03/2015 29* >=60 mL/min/1.73m2 Final CALCIUM 06/03/2015 9.3 8.3-10.5 mg/dL Final ALBUMIN 06/03/2015 3.7 3.2-5.0 g/dL Final PHOSPHORUS 06/03/2015 3.8 2.5-4.6 mg/dL Final BUN/CREA 06/03/2015 25.7 Final Vitamin D, 25 Hydroxy 06/03/2015 42 30-80 ng/mL Final ASSESSMENT AND PLAN: ICD-10-CM ICD-9-CM 1. CKD (chronic kidney disease), stage IV (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 -serum creatinine is above usual baseline; possibly related to fluid status with recent URI , also low normal BP -subnephrotic range proteinuria (on ACEI) -hydrate well, decrease lisinopril -continue skilled nursing goal of hypertensive and glycemic control to preserve renal function 2. Hypertension, renal disease, stage 1-4 or unspecified chronic kidney disease I12.9 403.9 0 Blood pressure intermittently low normal. Pt had recent fall. I would like to allow blood pressure to drift up for now and monitor closely. Fluid status appears stable. -decrease lisinopril to 20 mg daily -reviewed goal BP N18.9 3. DM type 2, uncontrolled, with renal complications (HCC) E11.29 250.42 Continue follow up with primary provider for management E11.65 4. Vitamin D deficiency E55.9 268.9 Calcium and phosphorus are fine. Recheck Vitamin D repl ete. 5. Upper respiratory tract infection, unspecified upper respiratory infection J06.9 465.9 P t does not appear acutely ill and reports symptoms improving. Recommend that she seek care i f she does not continue to improve or if SOB, fever/chills, headache, vision changes or any other changes in symptoms. Recommend that she be evaluated if any falls in the future. Follow up: 1 month Labs: renal panel Patient verbalized agreement and understanding of above plan. 30 minutes spent face to face with patient with greater than 50% of time in counseling, edu cation and coordination of care as noted above. CC: Francois Pascal MD documented i n [...] | | | | | | [place] [address] | | | | | | [phone] | | | | | | | | +--------+---------+ + + + documented as of this encounter Visit Diagnoses + + | Diagnosis | + + | CKD (chronic kidney disease), stage IV (HCC) - Primary Chronic kidney disease, Stage | | IV (severe) | + + | Hypertension, renal disease, stage 1-4 or unspecified chronic kidney disease | + + | DM type 2, uncontrolled, with renal complications (HCC) Type II or unspecified type | | diabetes mellitus with renal manifestations, uncontrolled | + + | Vitamin D deficiency Unspecified vitamin D deficiency | + + | Upper respiratory tract infection, unspecified upper respiratory infection | + + documented in this encounter
--- OUTSIDE RECORDS SUMMARY | ~2019-09-12 | XMS | Encounter Summary ---
Demographics + + + | Address | [address] | | | [place] [address] | + + + | Home Phone | | + + + | Preferred Language | Unknown | + + + | Marital Status | | + + + | Caodaism Affiliation | Unknown | + + + | Race | Unknown | + + + | Ethnic Group | Unknown | + + + Author + + + | Author | [facility] | | | and [place] | + + + | Organization | [facility] | | | and [...] | | | | | [place] [address] | | + + + + + | Valentín Saleh | ECON | [address] | | | | | [place] [address] | | + + + + + | Roberto Carlos Lennon | LEVI | [place] | | + + + + + Care Team Providers + +------+ + | Care Polygraph Technician Name | Role | Phone | + +------+ + PCP | Unavailable | + +------+ + Encounter Details +--------+ + + + + | Date | Type | Department | Care Team | Description | +--------+ + + + + | 05/09/ | Hospital | [facility] | | | | 2006 | Encounter | MED CTR XRAY [address] | | | | | | [place] | | | | | | [place] [address] | | | | | | [phone] | | | +--------+ + + + [...] | | | | | | [place] [address] | | | | | | [phone] | | | | | | | | +--------+---------+ + + + documented as of this encounter Visit Diagnoses Not on filedocumented in this encounter"
--- OUTSIDE RECORDS SUMMARY | ~2019-09-12 | XMS | Encounter Summary ---
Demographics + + + | Address | [address] | | | [place] [address] | + + + | Home Phone [...] Author | [facility] | | | and [place] | + + + | Organization | [facility] | | | [...] | | | | | [place] [address] | | + + + + + | Valentín Saleh | ECON | [address] | | | | | [place] [address] | | + + + + + | Roberto Carlos Lennon | LEVI | [place] | | + + + + + Care Team Providers + +------+ + | Care Anodic Operator Name | Role | Phone | + +------+ + PCP | Unavailable | + +------+ + Encounter Details +--------+ + + + + | Date | Type | Department | Care Team | Description | +--------+ + + + + | 06/16/ | Hospital | [facility] | | | | 1996 - | Encounter | MED CTR ICU [address] | | | | | | [place], | | | | 06[address][birth year][address] | | [place] [address] | | | | 1996 | | [phone] | | | +--------+ + + + [...] | | | | | | [place] [address] | | | | | | [phone] | | | | | | | | +--------+---------+ + + + documented as of this encounter Visit Diagnoses Not on filedocumented in this encounter"
--- OUTSIDE RECORDS SUMMARY | ~2019-09-12 | XMS | Encounter Summary ---
Demographics + + + | Address | [address] | | | [place] [address] | + + + | Home Phone [...] | Author | [facility] | | | and [place] | + + + | Organization | [facility] [...] | | | | | [place] [address] | | + + + + + | Valentín Saleh | ECON | [address] | | | | | [place] [address] | | + + + + + | Roberto Carlos Lennon | LEVI | Unknown | | + + + + + Care Team Providers + +------+ + | Care Extrusion Engineer Name | Role | Phone | + +------+ + | Francois Pascal MD | PCP | | + +------+ + Encounter Details +--------+---------+ + + + | Date | Type | Department | Care Team | Description | +--------+---------+ + + + | 12/26/ | Office | [facility] | Francois Pascal, | Glossitis (Primary | | 2012 | Visit | [facility] | [address] | Dx) | | | | [address] | [address] [place], | | | | | [place] | [place] [address] | | | | | [address] | [phone] | | | | | [phone] | | | +--------+---------+ + + + [...] + + + | Blood Pressure | 110/70 | 12/26/2012 2:35 PM | | | | | PDT | | + + + + + | Pulse | 68 | 12/26/2012 2:35 PM | | | | | PDT | | + + + + + | Temperature | 36.8 C (98.3 F) | 12/26/2012 2:35 PM | | | | | PDT | | + + + + + | Respiratory Rate | 16 | 12/26/2012 2:35 PM | | | | | PDT | | + + + + + | Oxygen Saturation | 92% | 12/26/2012 2:35 PM | | | | | PDT | | + + + + + | Inhaled Oxygen | - | - | | | Concentration | | | | + + + + + | Weight | 78 kg (172 lb) | 12/26/2012 2:35 PM | | | | | PDT | | + + + + + | Height | 158.8 cm (5' 2.5") | 12/26/2012 2:35 PM | | | | | PDT | | + + + + + | Body Mass Index | 30.96 | 12/26/2012 2:35 PM | | | | | PDT | | + + + + + documented in this encounter Progress Notes Francois Pascal MD - 12/26/2012 2:58 PM PDTFormatting of this note might be different f rom the original. Subjective: Patient ID: Alyson Lennon is a 81 y.o. female. HPI Autoimmune glossitis, She has been on MTX for 7-8 years, She understands the risk to her liver. 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 It gets very irritated on the inside of the mouth when she does not take it. Tongue and behind the lips get the worst. S he can still swallow. Review of Systems Objective: Physical Exam Oropharyx with slight general erythema above the norm. Assessment: 1. Glossitis methotrexate 2.5 mg tablet Plan: Refill and continue MTX. documented in this encounter Plan of Treatment +--------+---------+ + + + | Date | Type | Specialty | Care Team | Description | +--------+---------+ + + + | 12/06/ | Office | Cardiology | Stephenie Paul, | | | 2019 | Visit | | MD Bob Vasquez [place] | | | | | | [place], | | | | | | [place] [address] | | | | | | [phone] | | | | | | | | +--------+---------+ + + + documented as of this encounter Visit Diagnoses + + | Diagnosis | + + | Glossitis - Primary | + + documented in this encounter
--- OUTSIDE RECORDS SUMMARY | ~2019-09-12 | XMS | Encounter Summary ---
Demographics + + + | Address | [address] | | | [place] [address] | + + + | Home Phone | | + + + | Preferred Language | Unknown | + + + | Marital Status | | + + + | Muslim Affiliation | Unknown | + + + | Race | Unknown | + + + | Ethnic Group | Unknown | + + + Author + + + | Author | [facility] | | | and [place] | + + + | Organization | [facility] | | | and [place] | + + + | Address | Unknown | + + + | Phone | Unavailable | + + + Support + + + + + | Name | Relationship | Address | Phone | + + + + + | Sigrid Lennon | ECON | [address] | | | | | [place] [address] | | + + + + + | Valentín Saleh | ECON | [address] | | | | | [place] [address] | | + + + + + | Roberto Carlos Lennon | LEVI | Unknown | | + + + + + Care Team Providers + +------+ + | Care Judge Name | Role | Phone | + +------+ + | Francois Pascal MD | PCP | | + +------+ + Encounter Details +--------+ + + + + | Date | Type | Department | Care Team | Description | +--------+ + + + + | 12/18/ | Hospital | [facility] | Francois Pascal, | HYPERTENSION NEC; DM | | 2014 | Encounter | [facility] | [address] | (diabetes mellitus) | | | | [address] | [address] [place] [place], | | | | | [place] | [place] [address] | | | | | [address] | [phone] | | | | | [phone] | | | +--------+ + + + [...] 5 po once weekly | 20 | | 12/27/19 | | | mg | [...] documented as of this encounter Progress Notes FAUSTINA MORALES - 01/01/2014 12:00 AM PDT 14 12:36 PM PDTdocumented in this encounter Plan of Treatment +--------+---------+ + + + | Date | Type | Specialty | Care Team | Description | +--------+---------+ + + + | 12/06/ | Office | Cardiology | MiguelitojessieStephenie, | | | 2019 | Visit | | [address] | | | | | | [place], | | | | | | [place] [address] | | | | | | [phone] | | | | | | | | +--------+---------+ + + + documented as of this encounter Procedures + +--------+ + + + | Procedure Name | Priori | Date/Time | Associated Diagnosis | Comments | | | ty | | | | + +--------+ + + + | URINALYSIS WITH | Routin | 12/18/2013 | HYPERTENSION NEC | Results for this | | MICROSCOPIC IF | e | 10:25 AM | | procedure are in the | | INDICATED | | PDT | | results section. | + +--------+ + + + | CBC WITH | Routin | 12/18/2013 | HYPERTENSION NEC | Results for this | | DIFFERENTIAL | e | 10:11 AM | | procedure are in the | | | | PDT | | results section. | + +--------+ + + + | HEMOGLOBIN A1C | Routin | 12/18/2013 | DM (diabetes | Results for this | | | e | 10:11 AM | mellitus) | procedure are in the | | | | PDT | | results section. | + +--------+ + + + | COMPREHENSIVE | Routin | 12/18/2013 | HYPERTENSION NEC | Results for this | | METABOLIC PANEL | e | 10:11 AM | | procedure are in the | | | | PDT | | results section. | + +--------+ + + + documented in this encounter Results Urinalysis with Microscopic if Indicated (12/18/2013 10:25 AM PDT) + + + + + [...] - 1.030 | [facility] | | | [place], | | | [facility] | | [...] n, Urine | | 1.0 E.U./dL | [facility] | | | | [...] [address] | [place] | [phone] | | [facility] | | [address] | | | - LABORATORY | | | | + + + + + | [facility] | [address] | [place] | | | [facility] | | [address] | | | - LABORATORY | | | | + + + + + Hemoglobin A1C (12/18/2013 10:11 AM PDT) + +---------+ + + + | Component | Value | Ref Range | Performed | Pathologist | | | | | At | Signature | + +---------+ + + + | Hemoglobin | 7.8 (H) | 4.3 - 5.8 % | [facility] | | | A1c | | | [facility] | | | | | | MEDICAL | | | | | | CENTER - | | | | | | LABORATORY | | + +---------+ + + + | Estimated | 177 | mg/dL | [facility] | | | Average | | | [facility] | | | Glucose | | | [...] + | [facility] | [address] | [place], [place] | [phone] | | [facility] | | [address] | | | - LABORATORY | | | | + + + + + | [facility] | [address] | [place], [place] | | | [facility] | | [address] | | | - LABORATORY | | | | + + + + + CBC with Differential (12/18/2013 10:11 AM PDT) + + + + + + | Component | Value | Ref Range | Performed | Pathologist | | | | | At | Signature | + + + + + + | White Blood | 11.3 (H) | 4.0 - 11.0 K/uL | [...] + + + + | Hemoglobin | 13.7 | 11.5 - 16.0 | [facility] | | | | | g/dL | [facility] | | | | | | MEDICAL | | | | | | CENTER - | | | | | | LABORATORY | | + + + + + + | Hematocrit | 40.8 | 34.0 - 47.0 % | [facility] | | | | | [facility] | | | | | | [facility] | | | | | | C[facility] - | | | | | | LABORATORY | | + + + + + + | MCV | 103.3 (H) | 83.0 - 101.0 fL | [...] + + + + | MCHC | 33.5 | 32.0 - 36.0 | [facility] | | | | | g/dL | [facility] | | | | | | MEDICAL | | | | | | CENTER - | | | | | | LABORATORY | | + + + + + + | RDW-CV | 14.8 | <15.0 % | [facility] | | | | | | [facility] | | | | | | MEDICAL | | | | | | CENTER - | | | | | | LABORATORY | | + + + + + + | Platelet | 194 | 140 - 440 K/uL | [facility] | | | Count | | | [facility] | | | | | | MEDICAL | | | | | | CENTER - | | | | | | LABORATORY | | + + + + + + | MPV | 7.8 | fL | [facility] | | | | | | [facility] | | | | | | MEDICAL | | | | | | CENTER - | | | | | | LABORATORY | | + + + + + + | % | 59.4 | 45.0 - 82.0 % | [facility] | | | Neutrophils | | | [facility] | | | | | | MEDICAL | | | | | | CENTER - | | | | | | LABORATORY | | + + + + + + | % | 22.3 | 20.0 - 45.0 % | [facility] | | | Lymphocytes | | | [facility] | | | | | | MEDICAL | | | | | | CENTER - | | | | | | LABORATORY | | + + + + + + | % Monocytes | 12.0 | 4.0 - 12.0 % | [facility] | | | | | | [facility] | | | | | | MEDICAL | | | | | | CENTER - | | | | | | LABORATORY | | + + + + + + | % | 5.8 (H) | 0.0 - 5.0 % | [...] + + + + | Absolute | 6.70 | 1.80 - 8.50 | [facility] | | | Neutrophils | | K/uL | [facility] | | | | | | MEDICAL | | | | | | CENTER - | | | | | | LABORATORY | | + + + + + + | Absolute | 2.50 | 0.60 - 3.20 | [facility] | [...] + | [facility] | [address] | [place] | [phone] | | [facility] | | [address] | | | - LABORATORY | | | | + + + + + | [facility] | [address] | [place], [place] | | | [facility] | | [address] | | | - LABORATORY | | | | + + + + + Comprehensive Metabolic Panel (12/18/2013 10:11 AM PDT) + + + + + [...] + + + + | Cl | 104 | 98 - 109 mmol/L | [facility] [...] + + + + | Glucose | 131 (H) | 70 - 109 mg/dL | [facility] | | | | | | [facility] | | | | | | MEDICAL | | | | | | CENTER - | | | | | | LABORATORY | | + + + + + + | BUN | 12 | 7 - 18 mg/dL | [facility] | | | | | | [facility] | | | | | | MEDICAL | | | | | | CENTER - | | | | | | LABORATORY | | + + + + + + | Creatinine | 1.10 | 0.60 - 1.30 | [facility] | | | | | mg/dL | [facility] | | | | | | MEDICAL | | | | | | CENTER - | | | | | | LABORATORY | | + + + + + + | eGFR if not | 48 (L)Comment: | >=60 | [facility] | | | | GLOMERULAR FILTRATION | mL/min/1.73m2 | [facility] | | | FINNISH | RATE,ESTIMATED | | MEDICAL | | | | mL/min/1.56x6Azxk than | | CENTER - | | [...] + + + + | Calcium | 9.8 | 8.3 - 10.5 | [facility] | [...] + + + + | Bilirubin | 0.8 | 0.1 - 1.5 mg/dL | [facility] [...] + + + + | AST | 35 | 10 - 42 U/L | [facility] | | | | | | [facility] | | | | | | MEDICAL | | | | | | CENTER - | | | | | | LABORATORY | | + + + + + + | ALT | 25 | 6 - 45 U/L | [facility] | | | | | | [facility] | | | | | | MEDICAL | | | | | | CENTER - | | | | | | LABORATORY | | + + + + + + | Alkaline | 52 | 40 - 110 U/L | [facility] | | | Phosphatase | | | [facility] | | | | | | MEDICAL | | | | | | CENTER - | | | | | | LABORATORY | | + + + + + + | Globulin | 3.4 | g/dL | [facility] | | | [...] + + + + | BUN/Creatin | 10.9 | | [facility] | | | ine [...] + | [facility] | [address] | [place], [place] | [phone] | | [facility] | | [address] | | | - LABORATORY | | | | + + + + + | [facility] | [address] | [place], [place] | | | [facility] | | [address] | | | - LABORATORY | | | | + + + + + documented in this encounter Visit Diagnoses + + | Diagnosis | + + | HYPERTENSION NEC Complications affecting other specified body systems, hypertension | + + | DM (diabetes mellitus) Type II or unspecified type diabetes mellitus without mention | | of complication, not stated as uncontrolled | + + documented in this encounter"
--- OUTSIDE RECORDS SUMMARY | ~2019-09-12 | XMS | Encounter Summary ---
Demographics + + + | Address | [address] | | | [place] [address] | + + + | Home Phone | | + + + | Preferred Language | Unknown | + + + | Marital Status | | + + + | Temple Affiliation | Unknown | + + + | Race | Unknown | + + + | Ethnic Group | Unknown | + + + Author + + + | Author | [facility] | | | and [place] | + + + | Organization | [facility] | | | | | [place] [address] | | + + + + + | Valentín Saleh | ECON | [address] | | | | | [place] [address] | | + + + + + | Roberto Carlos Lennon | LEVI | Unknown | | + + + + + Care Team Providers + +------+ + | Care Console Manager Name | Role | Phone | + +------+ + | Francois Pascal MD | PCP | | + +------+ + Reason for Visit + + + | Reason | Comments | + + + | Chronic Renal | stage three | | Failure | | + + + Encounter Details +--------+---------+ + + + | Date | Type | Department | Care Team | Description | +--------+---------+ + + + | 05/28/ | Office | [facility] | [place], | CHRONIC KIDNEY | | 2013 | Visit | NEPHROLOGY [address] | [address] | DISEASE STAGE III | | | | [address] | [address] | (MODERATE) (Primary | | | | [address] | [address] | Dx); HTN CKD UNS | | | | [address] | [address] | W/CKD STAGE I THRU | | | | [phone] | | STAGE IV/UNS; | | | | | | DIABETES MELLITUS, | | | | | | TYPE II, CONTROLLED, | | | | | | WITH COMPLICATIONS; | | | | | | Vitamin D | | | | | [...] + | Blood Pressure | 122/58 | 05/28/2013 1:40 PM | | | | | PDT | | + + + + + | Pulse | 70 | 05/28/2013 1:40 PM | | | | | PDT | | + + + + + | Temperature | - | - | | + + + + + | Respiratory Rate | - | - | | + + + + + | Oxygen Saturation | 97% | 05/28/2013 1:40 PM | | | | | PDT | | + + + + + | Inhaled Oxygen | - | - | | | Concentration | | | | + + + + + | Weight | 77 kg (169 lb 12.8 | 05/28/2013 1:40 PM | | | | oz) | PDT | | + + + + + | Height | 158.8 cm (5' 2.5") | 05/28/2013 1:40 PM | | | | | PDT | | + + + + + | Body Mass Index | 30.56 | 05/28/2013 1:40 PM | | | | | PDT | | + + + + + documented in this encounter Patient Instructions Patient Instructions Kemar Herndon ARNP - 05/28/2013 2:04 PM PDTPlease monitor b lood pressure at home. Goal <130/80. Notify office if not within goal. Diabetic goals: Hgb A1c <7% and blood sugars 90-140. Please avoid taking NSAIDs. These are some commonly used NSAIDs: ibuprofen (Motrin,Advil), naproxen (Aleve, Naprosyn), celecoxib (Celebrex), indomethacin (Indocin), meloxicam (Mobic). documented in this encounter Progress Notes Kemar Herndon ARNP - 05/28/2013 1:40 PM PDTFormatting of this note might be diff erent from the original. Nephrology Follow Up Visit Date: 05/28/2013 PCP: Dr. Francois Pascal HPI: Alyson Lennon is a 82 y.o. female following up for CKD. 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 Corado, hyperlipidemia, gout, glossitis, and vitamin D deficiency. Alyson denies complaints today. No recent illnesses or hospitalizations. 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 Unknown Preventative health care 03/23/2012 Unknown CAROTID STENOSIS Unknown AMAUROSIS FUGAX Unknown DEMYELINATING DISEASE, CENTRAL NERVOUS SYSTEM Unknown FRACTURE, ANKLE, LEFT Unknown VITAMIN D DEFICIENCY Unknown HTN CKD UNS W/CKD STAGE I THRU STAGE IV/UNS Unknown DIABETES MELLITUS, TYPE II, CONTROLLED, WITH COMPLICATIONS Unknown GLOSSITIS Unknown CAD Unknown CONGESTIVE HEART FAILURE Unknown DEEP VENOUS THROMBOPHLEBITIS Unknown ARTHRITIS, CHRONIC 09/28/2011 Unknown AMI - ANTEROSEPTAL 199408/09/2011 Unknown VSD - 199408/09/2011 Unknown CLOSURE VENTRICULAR SEPTAL DEFECT - 199408/09/2011 Unknown FATIGUE 05/24/2011 Unknown VIRAL URI 05/24/2011 Unknown HYPERTRIGLYCERIDEMIA 12/24/2010 Unknown RENAL INSUFFICIENCY 01/21/2010 Unknown ECHO 03/04/09, LVEF 65% 03/04/2009 Unknown Past Medical History Diagnosis Date Hyperlipemia Vitamin D deficiency Gout Glossitis Hypertension 1979' DM type 2 (diabetes mellitus, type 2) ([facility]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 infarction ([facility]) (1994&1996) CAR with Hx of Myocardial infarction Other abnormal clinical finding Verebral Compression Fractures Glossitis CAD (coronary artery disease) CHF (congestive heart failure) ([facility]) Arthritis Old IA (myocardial infarction) ([facility]) Carotid stenosis H/O ventricular septal defect repair DVT (deep vein thrombosis) in Chronic kidney disease, stage III (moderate) ([facility]) Vitamin D deficiency Gout Osteoporosis Past Surgical History Procedure Date Coronary artery bypass graft 1996 Grafting for Coronary Artery Bypass x 3 vessels and VSD Patch Cholecystectomy 1987 Left brest bi 1975 Previous inferior vena cava filter Ou cateract surgery 2007 Hiatal hernia repair 1985 Orif left ankle unstable trimalleolar fracture dislocation 03/24/2009 Breast surgery 1975 BIOPSY BRESAT, LEFT Outpatient Prescriptions Marked as Taking for the 05/28/13 encounter (Office Visit) with LAURO Kern Medication Sig Dispense Refill allopurinol (ZYLOPRIM) 100 mg tablet TAKE ONE TABLET BY MOUTH TWICE A DAY 180 tablet 1 amLODIPine (NORVASC) 5 mg tablet TAKE ONE [...] tablet 1-2 tablets by mouth as needed ergocalciferol (VITAMIN D-2) 50,000 units capsule Take 50,000 Units by mouth Once a wee k. folic acid 1 mg tablet Take 1 tablet by mouth Daily. 90 tablet 3 furosemide (LASIX) 40 mg tablet TAKE 1 TABLET BY MOUTH EVERY DAY 90 tablet 3 LANTUS 100 UNIT/ML injection INJECT 110 UNITS AT BEDTIME 50 mL 6 lisinopril (PRINIVIL,ZESTRIL) 40 MG tablet TAKE 1 TABLET BY MOUTH EVERY DAY 90 tablet 3 methotrexate 2.5 mg tablet 5 po once weekly 20 tablet 11 metoprolol (TOPROL-XL) 200 MG 24 hr tablet TAKE 1 TABLET BY MOUTH EVERY DAY 90 tablet 3 multivitamin (THERAGRAN) per tablet Take 1 by mouth daily niacin (NIASPAN) 500 mg CR tablet Take 1 tablet by mouth Daily. 30 tablet 6 NOVOLOG 100 UNIT/ML injection INJECT DIRECTED, 15 UNITS IN THE MORNING, 20 UNITS BEF ORE LUNCH AND 25 UNITS BEFORE DINNER 20 mL 5 simvastatin (ZOCOR) 40 mg tablet TAKE 1/2 TABLET BY MOUTH EVERY DAY 135 tablet 1 sitaGLIPtin (JANUVIA) 100 mg tablet Take 1 tablet by mouth Daily. 90 tablet 1 Allergies Allergen Reactions Codeine Sulfate nown Luisvon Nausea Only Estrogens Unknown ROS: Denies anorexia, fatigue, chest pain, dyspnea, orthopnea, edema, nausea, vomiting, dys uria, hematuria, urinary frequency. Physical Exam: Filed Vitals: 05/28/13 1340 BP: 122/58 Pulse: 70 Height: 1.588 m (5' 2.5") Weight: 77.021 kg (169 lb 12.8 oz) SpO2: 97% Body mass index is 30.54 kg/(m^2). Constitutional: Pleasant, well-nourished female in no acute distress. Mouth/Throat: Oropharynx is clear and moist. Eyes: Pupils are equal, round, and reactive to light. Neck: Neck supple. No JVD present. Cardiovascular: S1, S2 with regular rate and rhythm. 2/6 systolic murmur, no gallops or rub s. Lungs: Effort normal and breath sounds normal. No crackles or wheezes. No respiratory distr ess. Abdominal: Soft. Bowel sounds are normal. No distension or tenderness. Musculoskeletal: No peripheral edema. Neurological: Alert. Skin: Skin is warm. No rash. Psychiatric: Normal mood and affect. Labs reviewed with patient: Office Visit on 05/28/2013 Component Date Value Range Status POC COLOR UA 05/28/2013 Yellow Final POC CLARITY UA 05/28/2013 Clear Final POC GLUCOSE UA 05/28/2013 Negative Final POC BILIRUBIN UA 05/28/2013 Negative Final POC KETONES UA 05/28/2013 Negative Negative Final POC SPECIFIC GRAVITY UA 05/28/2013 1.005 Final POC BLOOD UA 05/28/2013 Negative Final POC PH UA 05/28/2013 5.0 Final POC PROTEIN UA 05/28/2013 Negative Final POC UROBILINOGEN UA 05/28/2013 0.2 E.U./dL Final POC NITRITE UA 05/28/2013 Negative Final POC LEUKOCYTE ESTERASE UA 05/28/2013 Negative Final Hospital Outpatient Visit on 05/22/2013 Component Date Value Range Status NA 05/22/2013 134* 136-149 mmol/L Final K 05/22/2013 3.6 3.5-5.1 mmol/L Final CL 05/22/2013 96* 98-109 mmol/L Final CO2 05/22/2013 29 24-31 mmol/L Final ANION GAP 05/22/2013 9 6-17 mmol/L Final GLUCOSE 05/22/2013 154* 70-109 mg/dL Final BUN 05/22/2013 22* 7-18 mg/dL Final Creatinine, Serum 05/22/2013 1.07 0.60-1.30 mg/dL Final eGFR if not 05/22/2013 49* >=60 mL/min/1.73m2 Final GLOMERULAR FILTRATION RATE,ESTIMATED mL/min/1.73m2 Less than 60 Chronic kidney disease,if found over a 3-month period. Less than 15 Kidney failure For Americans,multiply the calculated GFR by 1.21. CALCIUM 05/22/2013 9.2 8.3-10.5 mg/dL Final ALBUMIN 05/22/2013 3.7 3.2-5.0 g/dL Final PHOSPHORUS 05/22/2013 3.1 2.5-4.6 mg/dL Final BUN/CREA 05/22/2013 20.6 Final WBC 05/22/2013 12.0* 4.0-11.0 K/uL Final RBC 05/22/2013 3.82 3.70-5.20 M/uL Final Hgb 05/22/2013 13.8 11.5-16.0 g/dL Final Hct 05/22/2013 39.6 34.0-47.0 % Final MCV 05/22/2013 103.7* 83.0-101.0 fL Final MCH 05/22/2013 36.1* 28.0-35.0 pg Final MCHC 05/22/2013 34.8 32.0-36.0 g/dL Final RDW 05/22/2013 15.8* <15.0 % Final Platelet Count 05/22/2013 180 140-440 K/uL Final MPV 05/22/2013 8.2 Final % Neutrophils 05/22/2013 60.9 45.0-82.0 % Final % Lymphocytes 05/22/2013 18.7* 20.0-45.0 % Final % Monocytes 05/22/2013 13.2* 4.0-12.0 % Final % Eosinophils 05/22/2013 6.1* 0.0-5.0 % Final % Basophils 05/22/2013 1.1* 0.0-1.0 % Final Absolute Neutrophils 05/22/2013 7.30 1.80-8.50 K/uL Final Absolute Lymphocytes 05/22/2013 2.30 0.60-3.20 K/uL Final Absolute Monocytes 05/22/2013 1.60* 0.00-1.00 K/uL Final Absolute Eosinophils 05/22/2013 0.70* 0.00-0.40 K/uL Final Absolute Basophils 05/22/2013 0.10 0.00-0.10 K/uL Final Vitamin D, 25 Hydroxy 05/22/2013 51 30-100 ng/mL Final Hemoglobin A1c 05/22/2013 7.7* 4.3-5.8 % Final Estimated Average Glucose 05/22/2013 174 Final NA 05/22/2013 134* 136-149 mmol/L Final K 05/22/2013 3.6 3.5-5.1 mmol/L Final CL 05/22/2013 97* 98-109 mmol/L Final CO2 05/22/2013 29 24-31 mmol/L Final ANION GAP 05/22/2013 8 6-17 mmol/L Final GLUCOSE 05/22/2013 156* 70-109 mg/dL Final BUN 05/22/2013 22* 7-18 mg/dL Final Creatinine, Serum 05/22/2013 1.10 0.60-1.30 mg/dL Final eGFR if not 05/22/2013 48* >=60 mL/min/1.73m2 Final GLOMERULAR FILTRATION RATE,ESTIMATED mL/min/1.73m2 Less than 60 Chronic kidney disease,if found over a 3-month period. Less than 15 Kidney failure For Americans,multiply the calculated GFR by 1.21. CALCIUM 05/22/2013 9.2 8.3-10.5 mg/dL Final ALBUMIN 05/22/2013 3.7 3.2-5.0 g/dL Final BILIRUBIN TOTAL 05/22/2013 0.7 0.1-1.5 mg/dL Final Total protein 05/22/2013 7.0 6.0-7.8 g/dL Final AST 05/22/2013 21 10-42 U/L Final ALT 05/22/2013 17 6-45 U/L Final ALK PHOS 05/22/2013 51 40-110 U/L Final GLOBULIN 05/22/2013 3.3 Final Albumin/Globulin ratio 05/22/2013 1.1 Final BUN/CREA 05/22/2013 20.0 Final Triglycerides 05/22/2013 208* 35-160 mg/dL Final CHOLESTEROL 05/22/2013 126* 150-200 mg/dL Final HDL 05/22/2013 42 29-89 mg/dL Final Chol/HDL Ratio 05/22/2013 3.0 Final LDL, Calculated 05/22/2013 42 <=130 mg/dL Final COLOR 05/22/2013 Yellow Light Yellow, Yellow Final CLARITY 05/22/2013 Clear Clear Final PH UA 05/22/2013 5.5 5.0-8.0 Final Specific [place] 05/22/2013 1.015 1.001-1.030 Final PROTEIN UA 05/22/2013 Negative Negative, Trace, 30 mg/dL Final BLOOD UA 05/22/2013 Negative Negative Final GLUCOSE UA 05/22/2013 Negative Negative Final KETONES UA 05/22/2013 Negative Negative Final BILIRUBIN UA 05/22/2013 Negative Negative Final NITRITE UA 05/22/2013 Negative Negative, Test not performed Final LEUKOCYTES ESTERASE UA 05/22/2013 Negative Negative Final UROBILINOGEN UA 05/22/2013 0.2 Final Assessment/Plan: Problem # 1: CHRONIC KIDNEY DISEASE STAGE III (MODERATE) (ICD-585.3) 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 No proteinuria a t this time. Serum creatinine is well within baseline. Renal ultrasound showed normal sized kidneys without hydronephrosis, with increased echogen icity. Discussed continued goal of preserving kidney function with good glycemic and blood pressur e control, while avoiding over control. Also avoidance of nephrotoxins such as NSAIDs and co ntrast imaging. She is on WILLA inhibitor therapy. Problem # 2: HTN CKD UNS W/CKD STAGE I THRU STAGE IV/UNS (ICD-403.90) Good control. Continue current regimen. Problem # 3: DIABETES MELLITUS, TYPE II, CONTROLLED, WITH COMPLICATIONS (ICD-250.90) Hgb A1c above goal and has been climbing. Discussed goals. Managed by primary provider. Problem # 4: VITAMIN D DEFICIENCY (ICD-268.9) Will recheck vitamin D level at next visit. Follow up in 6 months, sooner if needed. Labs prior including renal panel, PTH, urine micro albumin/cr ratio, vitamin D 25 [place]. Patient verbalized agreement and understanding of above plan. CC:Dr. Francois Pascal Chino roman this encounter Plan of Treatment +--------+---------+ + + + | Date | Type | Specialty | Care Team | Description | +--------+---------+ + + + | 12/06/ | Office | Cardiology | Stephenie Paul, | | | 2019 | Visit | | MD Bob [facility] [address]ila | | | | | | [facility] [address] [place], | | | | | | [place] [address] | | | | | | [phone] | | | | | | | | +--------+---------+ + + + documented as of this encounter Procedures + +--------+ + + + | Procedure Name | Priori | Date/Time | Associated Diagnosis | Comments | | | ty | | | | + +--------+ + + + | POCT URINALYSIS | Routin | 05/28/2013 | CHRONIC KIDNEY | Results for this | | DIPSTICK | e | 1:31 PM | DISEASE STAGE III | procedure are in the | | | | PDT | (MODERATE) | results section. | + +--------+ + + + documented in this encounter Results POCT Urinalysis Dipstick Non-Automated (05/28/2013 1:31 PM PDT) + + + + + + | Component | Value | Ref Range | Performed | Pathologist | | | | | At | Signature | + + + + + + | Color, UA, | Yellow | | | | | POC | | | | | + + + + + + | Clarity, | Clear | | | | | UA, POC | | | | | + + + + + + | Glucose, | Negative | | | | | UA, POC | | | | | + + + + + + | Bilirubin, | Negative | | | | | UA, POC | | | | | + + + + + + | Ketones, | Negative | Negative | | | | UA, POC | | | | | + + + + + + | Specific | 1.005 | | | | | [place], | | | | | | UA, POC | | | | | + + + + + + | Blood, UA, | Negative | | | | | POC | | | | | + + + + + + | pH, UA, POC | 5.0 | | | | + + + + + + | Protein, | Negative | | | | | UA, POC | | | | | + + + + + + | Urobilinoge | 0.2 E.U./dL | | | | | n, UA, POC | | | | | + + + + + + | Nitrite, | Negative | | | | | UA, POC | | | | | + + + + + + | Leukocyte | Negative | | | | | Esterase, | | [...] | III (moderate) | + + | HTN CKD UNS W/CKD STAGE I THRU STAGE IV/UNS Unspecified hypertensive kidney disease | | with chronic kidney disease stage I through stage IV, or unspecified | + + | DIABETES MELLITUS, TYPE II, CONTROLLED, WITH COMPLICATIONS Type II or unspecified | | type diabetes mellitus with unspecified complication, not stated as uncontrolled | + + | Vitamin D deficiency Unspecified vitamin D deficiency | + + documented in this encounter
--- OUTSIDE RECORDS SUMMARY | ~2019-09-12 | XMS | Encounter Summary ---
Demographics + + + | Address | [address] | | | [place] [address] | + + + | Home Phone | | + + + | Preferred Language | Unknown | + + + | Marital Status | | + + + | Presybeterian Affiliation | Unknown | + + + | Race | Unknown | + + + | Ethnic Group | Unknown | + + + Author + + + | Author | [facility] | | | and [place] | + + + | Organization | [facility] | | | and [...] | | | | | [place] [address] | | + + + + + | Valentín Saleh | ECON | [address] | | | | | [place] [address] | | + + + + + | Roberto Carlos Lennon | LEVI | Unknown | | + + + + + Care Team Providers + +------+ + | Care Tetryl Wringer Operator Name | Role | Phone | + +------+ + | Francois Pascal MD | PCP | | + +------+ + Encounter Details +--------+ + + + + | Date | Type | Department | Care Team | Description | +--------+ + + + + | 03/09/ | Orders Only | [facility] [place] | [place], | CHRONIC KIDNEY | | 2018 | | NEPHROLOGY [address] | [address] | DISEASE STAGE III | | | | [address] | [address] [facility] | (MODERATE) (Primary | | | | [place], [place] | [address] [place], [place] | Dx) | | | | [address] | [address] | | | | | [phone] | | | +--------+ + + + [...] this encounter Progress Zaynab Castellanos RN - 03/09/2017 11:28 AM PSTLabs for upcoming nephrology appointment sent to: [facility] documented in t his encounter Plan of Treatment +--------+---------+ + + + | Date | Type | Specialty | Care Team | Description | +--------+---------+ + + + | 12/06/ | Office | Cardiology | Stephenie Paul, | | | 2019 | Visit | | MD [address] | | | | | | [place], | | | | | | [place] [address] | | | | | | [phone] | | | | | | | | +--------+---------+ + + + documented as of this encounter Visit Diagnoses + + | Diagnosis | + + | CHRONIC KIDNEY DISEASE STAGE III (MODERATE) - Primary Chronic kidney disease, Stage | | III (moderate) | + + documented in this encounter"
--- OUTSIDE RECORDS SUMMARY | ~2019-09-12 | XMS | Encounter Summary ---
Demographics + + + | Address | [address] | | | [place] [address] | + + + | Home Phone | | + + + | Preferred Language | Unknown | + + + | Marital Status | | + + + | Sabianist Affiliation | Unknown | + + + | Race | Unknown | + + + | Ethnic Group | Unknown | + + + Author + + + | Author | [facility] | | | and [place] | + + + | Organization | [facility] | [...] | | | | | [place] [address] | | + + + + + | Valentín Saleh | ECON | [address] | | | | | [place] [address] | | + + + + + | Roberto Carlos Lennon | LEVI | Unknown | | + + + + + Care Team Providers + +------+ + | Care Auditor/Quality Name | Role | Phone | + [...] Closed | | Radiology | Diagnoses | [place], | [facility] | | | | | SOB | Francois Tello MD | [address] | | | | | (shortness | [address] | [place], | | | | | of breath) | [address] | [place] | | | | | Procedures | [place] | [address] | | | | | ECHO | [place], [place] | Phone: | | | | | Complete | [address] | [phone] | | | | | | Phone: | Fax: | | | | | | [phone] | [phone] | | | | | | Fax: | | | | | | | [phone] | | +--------+--------+ + + + + Reason for Visit Diagnostic/Screening (Routine) +--------+--------+ + + + + | Status | Reason | Specialty | Diagnoses / | Referred By | Referred To | | | | | Procedures | Contact | Contact | +--------+--------+ + + + + | Closed | | Radiology | Diagnoses | [place], | [facility] | | | | | SOB | Francois Tello MD | [address] | | | | | (shortness | [address] | [place], | | | | | of breath) | [address] | [place] | | | | | Procedures | [place] | [address] | | | | | ECHO | [place], [place] | Phone: | | | | | Complete | [address] | [phone] | | | | | | Phone: | Fax: | | | | | | [phone] | [phone] | | | | | | Fax: | | | | | | | [phone] | | +--------+--------+ + + + + Encounter Details +--------+ + + + + | Date | Type | Department | Care Team | Description | +--------+ + + + + | 11/25/ | Hospital | [facility] | Francois Pascal, | SOB (shortness of | | 2015 | Encounter | [facility] [address] | MD [address] | breath) | | | | [address] [place] | [address] [place], | | | | | [place] [address] | [place] [address] | | | | | [phone] | [phone] | | | | | | | | | | | | Blaire Carter, | | | | | | Technologist | | +--------+ + + + + [...] | | | | | | mellitus) ([facility]) | [...] encounter Progress Notes Francois Pascal MD - 11/26/2014 11:30 AM PDT Quick Note: Studies recently obtained have slight abnormalities but do not require early follow up, Bu t patient may reschedule earlier to discuss if they wish. documented in thi s encounter Plan of [...] | | | | | | [place] [address] | | | | | | [phone] | | | | | | | | +--------+---------+ + + + documented as of this encounter Procedures + +--------+ + + + | Procedure Name | Priori | Date/Time | Associated Diagnosis | Comments | | | ty | | | | + +--------+ + + + | ECHO COMPLETE | Routin | 11/25/2014 | SOB (shortness of | Results for this | | | e | 11:42 AM | breath) | procedure are in the | | | | PDT | | results section. | + +--------+ + + + | LVEF VALUE | Routin | 11/25/2014 | | Results for this | | | e | | | procedure are in the | | | | | | results section. | + +--------+ + + + documented in this encounter Results ECHO Complete (11/25/2014 11:42 AM PDT) + + | Specimen | + + | | + + + + + | Narrative | Performed At | + + + | [facility] ECHOCARD[facility] REPORT | [place] | | STUDY DATE: 11/25/2014 PATIENT NAME: Alyson Lennon : | [place] | | 1930 PCP: Francois Pascal MD | [facility] | | CLINICAL HISTORY/DIAGNOSIS: SOB, HTN A transthoracic | - IMAGING | | echocardiogram with M-mode, pulsed-wave and color Doppler was | | | performed with standard views obtained. The technical quality of | | | this examination is adequate. The heart rhythm during the echo is | | | normal with a heart rate in the 70s. The M-mode, two-dimensional, | | | color flow and spectral Doppler data were reviewed and support the | | | following interpretation: Interpretation: Left Atrium: Mildly | | | enlarged. Left ventricle: Left ventricular size is normal with | | | normal wall thickness and motion, and normal left ventricular | | | systolic function. The estimated ejection fraction is 73%. Grade | | | 1 left ventricular diastolic dysfunction. Aortic root: Mildly | | | enlarged. Right Atrium: Mildly enlarged. Right ventricle: Right | | | ventricular size is normal with normal wall thickness and normal | | | right ventricular systolic function. Pericardium: Pericardium is | | | normal. Pulmonary artery: Pulmonary artery is normal. Aortic | | | valve: Sclerotic probable trileaflet valve with mild insufficiency. | | | Mitral valve: mildly thickened with mild annular calcification and | | | mild regurgitation. Pulmonic valve: Pulmonic valve is normal. | | | Tricuspid valve: Tricuspid valve is normal. Vena cava: The | | | inferior vena cava is normal. There is greater than 50% | | | inspiratory collapse of the IVC. IMPRESSIONS: 1. Normal | | | LV size and systolic function with LVEF 73%. 2. Mild aortic and | | | mitral insufficiency. 3. Mild biatrial enlargement. 4. Grade 1 | | | LV diastolic dysfunction. 5. No significant changes compared with | | | patient's prior study of 2008. Measurements: Height: 62 | | | Weight: 155 Aortic root: 38 mm Aortic cusp sep: 17 mm LA: 47 | | | mm IVS-diastole: 11 mm IVS-systole: 17 mm LVPW diastole: 11 | | | mm LVPW systole: 17 mm LV diameter-diastole: 47 mm LV | | | diameter-systole: 30 mm Fractional shortenin % PFV aortic | | | valve: m/s MPG mitral valve: mmHg PFV TR jet: m/s RA/RV | | | PPG: mmHg LA volume: 48 mL LA index: 28 mL/m2 Mitral Inflow | | | DT: 177 ms IVRT: 150 ms Valsalva: Not needed PWDTI S wave: | | | 9.2 cm/s PWDTI E wave: 12.0 cm/s PWDTI A wave: 12.6 cm/s E/A | | | Ratio: 0.952 E/E Ratio: Signed by: Magdi Kamara MD | | | PhD FACC 11/25/2014 11:43 Utility Mechanic: Rolando | | | Zilliox, RDCS, RVT, RDMS | | + + + + + + + + | Performing | Address | City/State/Zipcode | Phone Number | | Organization | | | | + + + + + | [facility] | [address] | [place] | [phone] | | [facility] | | [address] | | | - IMAGING | | | | + + + + + LVEF VALUE (11/25/2014) + +-------+ + + + | Component | Value | Ref Range | Performed | Pathologist | | | | | At | Signature | + +-------+ + + + | LVEF-TTE | 73 | | | | | TRANSTHORAC | | | | | | [facility] ECHO | | | | | + +-------+ + + + documented in this encounter Visit Diagnoses + + | Diagnosis | + + | SOB (shortness of breath) Shortness of breath | + + documented in this encounter"
--- OUTSIDE RECORDS SUMMARY | ~2019-09-12 | XMS | Encounter Summary ---
Demographics + + + | Address | [address] | | | [place] [address] | + + + | Home Phone [...] | Author | [facility] | | | and [place] | + + + | Organization | [facility] | | | and [...] | | | | | [place] [address] | | + + + + + | Valentín Saleh | ECON | [address] | | | | | [place] [address] | | + + + + + | Roberto Carlos Lennon | LEVI | Unknown | | + + + + + Care Team Providers + +------+ + | Care Top Precipitator Operator Helper Name | Role | Phone | + +------+ + | Francios Pascal MD | PCP | | + +------+ + Reason for Visit + + + | Reason | Comments | + + + | Medication Refill | | + + + Encounter Details +--------+--------+ + + + | Date | Type | Department | Care Team | Description | +--------+--------+ + + + | 03/05/ | Refill | [facility] [place] [facility] | Francois Pascal, | Medication Refill | | 2012 | | [facility] | [address] | | | | | [address] | [address] [place], | | | | | [place] | [place] [address] | | | | | [address] | [phone] | | | | | [phone] | | | +--------+--------+ + + + [...] | | | | | | [place] [address] | | | | | | [phone] | | | | | | | | +--------+---------+ + + + documented as of this encounter Visit Diagnoses Not on filedocumented in this encounter"
--- OUTSIDE RECORDS SUMMARY | ~2019-09-12 | XMS | Encounter Summary ---
Demographics + + + | Address | [address] | | | [place] [address] | + + + | Home Phone | | + + + | Preferred Language | Unknown | + + + | Marital Status | | + + + | Advent Affiliation | Unknown | + + + | Race | Unknown | + + + | Ethnic Group | Unknown | + + + Author + + + | Author | [facility] | | | and [place] | + + + | Organization | [facility] [...] + | Valentín Saleh | ECON | [address] | | | | | [place] [address] | | + + + + + | Roberto Carlos Lennon | LEVI | [place] | | + + + + + Care Team Providers + +------+ + | Care Triple Valve Mechanic Name | Role | Phone | + +------+ + PCP | Unavailable | + +------+ + Encounter Details +--------+ + + + + | Date | Type | Department | Care Team | Description | +--------+ + + + + | 09/24/ | Hospital | [facility] | | | | 2004 | Encounter | [facility] | | | | | | [address] | | | | | | [place] | | | | | | [address] | | | | | | [phone] | | | +--------+ + + + [...] | | | | | | [place] [id number] | | | | | | [phone] | | | | | | | | +--------+---------+ + + + documented as of this encounter Visit Diagnoses Not on filedocumented in this encounter"
--- OUTSIDE RECORDS SUMMARY | ~2019-09-12 | XMS | Encounter Summary ---
Demographics + + + | Address | [address] | | | [place] [address] | + + + | Home Phone | | + + + | Preferred Language | Unknown | + + + | Marital Status | | + + + | Congregation Affiliation | Unknown | + + + | Race | Unknown | + + + | Ethnic Group | Unknown | + + + Author + + + | Author | [facility] | | | and [place] | + + + | Organization | [facility] | [...] | | | | | [place] [address] | | + + + + + | Valentín Saleh | ECON | [address] | | | | | [place] [address] | | + + + + + | Roberto Carlos Lennon | LEVI | Unknown | | + + + + + Care Team Providers + +------+ + | Care Motor Electrician Name | Role | Phone | + +------+ + | Francois Pascal MD | PCP | | + +------+ + Reason for Visit + + + | Reason | Comments | + + + | Results | labs | + + + | Diabetes | | + + + Encounter Details +--------+---------+ + + + | Date | Type | Department | Care Team | Description | +--------+---------+ + + + | 12/19/ | Office | [facility] | Francois Pascal, | HYPERTENSION NEC | | 2014 | Visit | MEDICINE [address] [place] [address] | [address] | (Primary Dx); | | | | [address] [place], | [address] [place], | Hyperlipidemia; DM | | | | [place] [address] | [place] [address] | (diabetes mellitus); | | | | [phone] | [phone] | CHRONIC KIDNEY | | | | | | DISEASE STAGE III | | | | | | (MODERATE); | | | | | | OSTEOARTHRITIS, | | | | | | ANKLE, LEFT | +--------+---------+ + + + Social History [...] + + + | Blood Pressure | 126/64 | 12/19/2013 10:10 AM | | | | | PDT | | + + + + + | Pulse | 64 | 12/19/2013 10:10 AM | | | | | PDT | | + + + + + | Temperature | 36.5 C (97.7 F) | 12/19/2013 10:10 AM | | | | | PDT | | + + + + + | Respiratory Rate | 16 | 12/19/2013 10:10 AM | | | | | PDT | | + + + + + | Oxygen Saturation | 97% | 12/19/2013 10:10 AM | | | | | PDT | | + + + + + | Inhaled Oxygen | - | - | | | Concentration | | | | + + + + + | Weight | 74.4 kg (164 lb) | 12/19/2013 10:10 AM | | | | | PDT | | + + + + + | Height | 162.6 cm (5' 4") | 12/19/2013 10:10 AM | | | | | PDT | | + + + + + | Body Mass Index | 28.15 | 12/19/2013 10:10 AM | | | | | PDT | | + + + + + documented in this encounter Progress Notes Francois Pascal MD - 12/19/2013 10:38 AM PDTFormatting of this note might be different f rom the original. Subjective: Patient ID: Alyson Lennon is a 82 y.o. female. HPI DM2 she is on lantus 120 nightly, [...] her diet "with every bit she takes". She is eating a lot of greens this summer. Autoimmune Glossitis, She is on her MTX. Her mouth is still occasionally sore but not to o bad right now. It still feeling slightly sore though. She declines management engineer. CKD, She urinates normally. There is no blood in her urine, She feels as though she drink s plenty of fluids. She follows with Kemar Mcclelland. HTN There is no chest pain SOB or ankle swelling at this time. And she is compliant with h er medications. Hyperlipidemia, she is on simvistatin, there are no muscle aches or weakness. She is com pliant with the medication. Left ankle pain since fracture several years ago, Still hard to walk. She uses a cane ever y time she walks. She is now seeing accupuncturist for this and has 3 sessions with minim al improvement. She is not really doing any exercize at all. She still declines PT for now . Her thinks she should go to the [facility] in [place] and get in the water. 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 Social History: Reviewed history from 08/11/2011 and no changes required: Born in [facility] for [facility] years. and Remarried [...] swelling and No ar thralgias. Some joint radha, left ankle Skin: Neg for color change,no rash and [...] motion Skin, no gross lesions Assessment: 1. HYPERTENSION NEC 2. Hyperlipidemia 3. DM (diabetes mellitus) 4. CHRONIC KIDNEY DISEASE STAGE III (MODERATE) 5. OSTEOARTHRITIS, ANKLE, LEFT Plan: She will add 3 units to every level that she is doing with the novolog . Victoza trial to be considered in the future. Consider PT in the future. RTC 3 months with labs prior, Lab s reviewed with pt today and revealed slightly improved GFR and A1C. documented in this encounter Plan of Treatment +--------+---------+ + + + | Date | Type | Specialty | Care Team | Description | +--------+---------+ + + + | 12/06/ | Office | Cardiology | Stephenie Paul, | | | 2019 | Visit | | MD [facility] | | | | | | [place], | | | | | | [place] [address] | | | | | | [phone] | | | | | | | | +--------+---------+ + + + documented as of this encounter Results Urinalysis with Microscopic if Indicated (03/21/2014 10:45 AM PST) + + + + + + | Component | Value | Ref Range | Performed | Pathologist | | | | | At | Signature | + + + + + + | Color, | Yellow | Light Yellow, | [facility] | | | Urine | | Yellow | [facility] | | | | | | MEDICAL | | | | | | CENTER - | | | | | | LABORATORY | | + + + + + + | Clarity, | Clear | Clear | [facility] | | | Urine | | | [facility] | | [...] - 1.030 | [facility] | | | [place], | | | [facility] | | [...] + | [facility] | [address] | [place] | [phone] | | [facility] | | [address] | | | - LABORATORY | | | | + + + + + | [facility] | [address] | [place], [place] | | | [facility] | | [id number] | | | - LABORATORY | | | | + + + + + CBC with Differential (03/21/2014 10:38 AM PST) + + + + + + | Component | Value | Ref Range | Performed | Pathologist | | | | | At | Signature | + + + + + + | White Blood | 12.2 (H) | 4.0 - 11.0 K/uL | [facility] | | | Cells | | | [facility] | | | | | | MEDICAL | | | | | | CENTER - | | | | | | LABORATORY | | + + + + + + | Red Blood | 4.01 | 3.70 - 5.20 | [facility] | | | Cells | | M/uL | [facility] | | | | | | MEDICAL | | | | | | CENTER - | | | | | | LABORATORY | | + + + + + + | Hemoglobin | 14.3 | 11.5 - 16.0 | [facility] | | | | | g/dL | [facility] | | | | | | MEDICAL | | | | | | CENTER - | | | | | | LABORATORY | | + + + + + + | Hematocrit | 42.1 | 34.0 - 47.0 % | [facility] | | | | | | [facility] | | | | | | MEDICAL | | | | | | CENTER - | | | | | | LABORATORY | | + + + + + + | MCV | 104.8 (H) | 83.0 - 101.0 fL | [facility] | | | | | | [facility] | | | | | | MEDICAL | | | | | | CENTER - | | | | | | LABORATORY | | + + + + + + | MCH | 35.6 (H) | 28.0 - 35.0 pg | [facility] | | | | | | [facility] | | | | | | MEDICAL | | | | | | CENTER - | | | | | | LABORATORY | | + + + + + + | MCHC | 33.9 | 32.0 - 36.0 | [facility] | | | | | g/dL | [facility] | | | | | | MEDICAL | | | | | | CENTER - | | | | | | LABORATORY | | + + + + + + | RDW-CV | 14.6 | <15.0 % | [facility] | | | | | | [facility] | | | | | | MEDICAL | | | | | | CENTER - | | | | | | LABORATORY | | + + + + + + | Platelet | 200 | 140 - 440 K/uL | [facility] | | | Count | | | [facility] | | | | | | MEDICAL | | | | | | CENTER - | | | | | | LABORATORY | | + + + + + + | MPV | 8.3 | fL | [facility] | | | | | | [facility] | | | | | | MEDICAL | | | | | | CENTER - | | | | | | LABORATORY | | + + + + + + | % | 60.4 | 45.0 - 82.0 % | [facility] | | | Neutrophils | | | [facility] | | | | | | MEDICAL | | | | | | CENTER - | | | | | | LABORATORY | | + + + + + + | % | 22.1 | 20.0 - 45.0 % | [facility] | | | Lymphocytes | | | [facility] | | | | | | MEDICAL | | | | | | CENTER - | | | | | | LABORATORY | | + + + + + + | % Monocytes | 12.7 (H) | 4.0 - 12.0 % | [facility] | | | | | | [facility] | | | | | | MEDICAL | | | | | | CENTER - | | | | | | LABORATORY | | + + + + + + | % | 4.2 | 0.0 - 5.0 % | [facility] | | | Eosinophils | | | [facility] | | | | | | MEDICAL | | | | | | CENTER - | | | | | | LABORATORY | | + + + + + + | % Basophils | 0.6 | 0.0 - 1.0 % | [facility] [...] + + + | Absolute | 2.70 | 0.60 - 3.20 | [facility] | | | Lymphocytes | | K/uL | [facility] | | | | | | MEDICAL | | | | | | CENTER - | | | | | | LABORATORY | | + + + + + + | Absolute | 1.50 (H) | 0.00 - 1.00 | [facility] | | | Monocytes | | K/uL | [facility] | | | | | | MEDICAL | | | | | | CENTER - | | | | | | LABORATORY | | + + + + + + | Absolute | 0.50 (H) | 0.00 - 0.40 | [facility] [...] + | [facility] | [address] | [place] | [phone] | | [facility] | | [address] | | | - LABORATORY | | | | + + + + + | [facility] | [address] | [place] | | | [facility] | | [address], [facility] | | | - LABORATORY | | | | + + + + + Hemoglobin A1C (03/21/2014 10:29 AM PST) + +---------+ + + + | Component | Value | Ref Range | Performed | Pathologist | | | | | At | Signature | + +---------+ + + + | Hemoglobin | 7.8 (H) | 4.3 - 6.0 % | [facility] | | | A1c | | | [facility] | | | | | | MEDICAL | | | | | | CENTER - | | | | | | LABORATORY | | + +---------+ + + + | Estimated | 177 | mg/dL | [facility] | | | Average | | | [facility] | | | Glucose | | | [...] + | [facility] | [address] | [place], [place] | [phone] | | [facility] | | [address] | | | - LABORATORY | | | | + + + + + | [facility] | [address] | [place], [place] | | | [facility] | | [id number] | | | - LABORATORY | | | | + + + + + Lipid Panel (03/21/2014 10:29 AM PST) + +---------+ + + + | Component | Value | Ref Range | Performed | Pathologist | | | | | At | Signature | + +---------+ + + + | Triglycerid | 146 | 35 - 160 mg/dL | [facility] | | | es | | | [facility] | | | | | | MEDICAL | | | | | | CENTER - | | | | | | LABORATORY | | + +---------+ + + + | Cholesterol | 142 (L) | 150 - 200 mg/dL | [facility] | | | | | | [facility] | | | | | | MEDICAL | | | | | | CENTER - | | | | | | LABORATORY | | + +---------+ + + + | HDL | 56 | 29 - 89 mg/dL | [facility] | | | | | | [facility] | | | | | | MEDICAL | | | | | | CENTER - | | | | | | LABORATORY | | + +---------+ + + + | Chol/HDL | 2.5 | | [facility] | | | Ratio | | | [facility] | | | | | | MEDICAL | | | | | | CENTER - | | | | | | LABORATORY | | + +---------+ + + + | LDL, | 57 | <=130 mg/dL | [facility] | | | Calculated | | | [facility] | | [...] [address] | [place] | [phone] | | [facility] | | [address] | | | - LABORATORY | | | | + + + + + | [facility] | [address] | [place] | | | [facility] | | [address], [facility] | | | - LABORATORY | | | | + + + + + Comprehensive Metabolic Panel (03/21/2014 10:29 AM PST) + + + + + + | Component | Value | Ref Range | Performed | Pathologist | | | | | At | Signature | + + + + + + | Na | 142 | 136 - 149 | [facility] | [...] + + + + | Cl | 106 | 98 - 109 mmol/L | [facility] [...] + + + + | Glucose | 122 (H) | 70 - 109 mg/dL | [facility] | | | | | | [facility] | | | | | | MEDICAL | | | | | | CENTER - | | | | | | LABORATORY | | + + + + + + | BUN | 24 (H) | 7 - 18 mg/dL | [facility] | | | | | | [facility] | | | | | | MEDICAL | | | | | | CENTER - | | | | | | LABORATORY | | + + + + + + | Creatinine | 1.15 | 0.60 - 1.30 | [facility] | | | | | mg/dL | [facility] | | | | | | MEDICAL | | | | | | CENTER - | | | | | | LABORATORY | | + + + + + + | eGFR if not | 45 (L)Comment: | >=60 | [facility] | | | | GLOMERULAR FILTRATION | mL/min/1.73m2 | [facility] | | | [place] | RATE,ESTIMATED | | MEDICAL | | | | mL/min/1.92k3Xlqv than | | CENTER - | | [...] + + + + | Calcium | 9.9 | 8.3 - 10.5 | [facility] | | | | | mg/dL | [facility] | | | | | | MEDICAL | | | | | | CENTER - | | | | | | LABORATORY | | + + + + + + | Albumin | 3.9 | 3.2 - 5.0 g/dL | [facility] | | | | | | [facility] | | | | | | MEDICAL | | | | | | CENTER - | | | | | | LABORATORY | | + + + + + + | Bilirubin | 0.9 | 0.1 - 1.5 mg/dL | [facility] [...] + + + + | Globulin | 3.2 | g/dL | [facility] | | | [...] + + + + | BUN/Creatin | 20.9 | | [facility] | | | ine [...] [address] | [place] | [phone] | | [facility] | | [address] | | | - LABORATORY | | | | + + + + + | [facility] | [address] | [place], [place] | | | [facility] | | [address], [facility] | | | - LABORATORY | | | | + + + + + documented in this encounter Visit Diagnoses + + | Diagnosis | + + | HYPERTENSION NEC - Primary Complications affecting other specified body systems, | | hypertension | + + | Hyperlipidemia Other and unspecified hyperlipidemia | + + | DM (diabetes mellitus) Type II or unspecified type diabetes mellitus without mention | | of complication, not stated as uncontrolled | + + | CHRONIC KIDNEY DISEASE STAGE III (MODERATE) Chronic kidney disease, Stage III | | (moderate) | + + | OSTEOARTHRITIS, ANKLE, LEFT Osteoarthrosis, unspecified whether generalized or | | localized, ankle and foot | + + documented in this encounter
--- OUTSIDE RECORDS SUMMARY | ~2019-09-12 | XMS | Encounter Summary ---
Demographics + + + | Address | [address] | | | [place] [address] | + + + | Home Phone | | + + + | Preferred Language | Unknown | + + + | Marital Status | | + + + | Religion Affiliation | Unknown | + + + | Race | Unknown | + + + | Ethnic Group | Unknown | + + + Author + + + | Author | [facility] | | | and [place] | + + + | Organization | [facility] | | | and [place] | + + + | Address | Unknown | + + + | Phone | Unavailable | + + + Support + + + + + | Name | Relationship | Address | Phone | + + + + + | Sigrid Lennon | ECON | [address] | | | | | [place] [address] | | + + + + + | Valentín Saleh | ECON | [address] | | | | | [place] [address] | | + + + + + | Roberto Carlos Lennon | LEVI | Unknown | | + + + + + Care Team Providers + +------+ + | Care Multi Operation Machine Operator Name | Role | Phone | + +------+ + | No, Physician | PCP | Unavailable | + +------+ + Encounter Details +--------+ + + + + | Date | Type | Department | Care Team | Description | +--------+ + + + + | 10/11/ | Lab | [facility] | [place], | Chronic kidney | | 2018 | Requisition | [facility] | [address] | disease, stage III | | | | [address] [place] | [address] [place] | (moderate); Type 2 | | | | [place] | [address] | diabetes mellitus | | | | [address] | [address] | with diabetic | | | | [phone] | | retinopathy and | | | | | | macular edema (HCC); | | | | | | Age-related | | | | | | osteoporosis without | | | | | | current | | | | | | pathological | | | | | | fracture | +--------+ + + + + Social [...] | | | | | | [place] [address] | | | | | | [phone] | | | | | | | | +--------+---------+ + + + documented as of this encounter Procedures + +--------+ + + + | Procedure Name | Priori | Date/Time | Associated Diagnosis | Comments | | | ty | | | | + +--------+ + + + | PARATHYROID HORMONE, | Routin | 10/11/2017 | Chronic kidney | Results for this | | INTACT | e | 9:45 AM | disease, stage III | procedure are in the | | | | PDT | (moderate) Type 2 | results section. | | | | | diabetes mellitus | | | | | | with diabetic | | | | | | retinopathy and | | | | | | macular edema (HCC) | | | | | | Age-related | | | | | | osteoporosis without | | | | | | current | | | | | | pathological | | | | | | fracture | | + +--------+ + + + documented in this encounter Results Parathyroid Hormone, Intact (10/11/2017 9:45 AM PDT) + +-------+ + + + | Component | Value | Ref Range | Performed | Pathologist | | | | | At | Signature | + +-------+ + + + | PTH Intact | 42 | 12 - 88 pg/mL | [facility] [...] | [address] | [place] | [phone] | | [facility] | | [address] | | | - LABORATORY | | | | + + + + + documented in this encounter Visit Diagnoses + + | Diagnosis | + + | Chronic kidney disease, stage III (moderate) (HCC) Chronic kidney disease, Stage III | | (moderate) | + + | 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
--- OUTSIDE RECORDS SUMMARY | ~2019-09-12 | XMS | Encounter Summary ---
Demographics + + + | Address | [address] | | | [place] [address] | + + + | Home Phone | | + + + | Preferred Language | Unknown | + + + | Marital Status | | + + + | Jain Affiliation | Unknown | + + + | Race | Unknown | + + + | Ethnic Group | Unknown | + + + Author + + + | Author | [facility] | | | and [place] | + + + | Organization | [facility] | [...] | | | | | [place] [address] | | + + + + + | Valentín Saleh | ECON | [address] | | | | | [place] [address] | | + + + + + | Roberto Carlos Lennon | LEVI | Unknown | | + + + + + Care Team Providers + +------+ + | Care Career Manager Name | Role | Phone | + +------+ + | Francois Pascal MD | PCP | | + +------+ + Reason for Visit +---------+--------+ + | Reason | Onset | Comments | | | Date | | +---------+--------+ + | Results | 10/16/ | | | | 2019 | | +---------+--------+ + Encounter Details +--------+ + + + + | Date | Type | Department | Care Team | Description | +--------+ + + + + | 10/16/ | Telephone | [facility] | Francois Pascal, | Results | | 2018 | | MEDICINE [place] | [address] | | | | | [address] | [address] [place], | | | | | [place] | [place] [address] | | | | | [address] | [phone] | | | | | [phone] | | | +--------+ + + + [...] this encounter Miscellaneous Notes Telephone Encounter - Kacy Delaney Water Systems Engineer - 10/16/2018 11:25 AM PDTPatient is scheduled for 10/18Electronically signed by Adam Flor at 2018 11:25 AM PDTTelephone Encounter - Cindi Carlson Medical Assistant - 10/16/2018 7:45 AM PDT----- Message from Francois Pascal MD sent at 10/12/2018 15:32 PDT ----- Ok for ma to notify patient that he has somewhat abnormal labs and would like to discuss wi thin a month. zahida ramos in this encounter Plan of Treatment +--------+---------+ + + + | Date | Type | Specialty | Care Team | Description | +--------+---------+ + + + | 12/06/ | Office | Cardiology | Stephenie Paul, | | | 2019 | Visit | | MD [address] | | | | | | [place], | | | | | | [place] [address] | | | | | | [phone] | | | | | | | | +--------+---------+ + + + documented as of this encounter Visit Diagnoses Not on filedocumented in this encounter"
--- OUTSIDE RECORDS SUMMARY | ~2019-09-12 | XMS | Encounter Summary ---
Demographics + + + | Address | [address] | | | [place] [address] | + + + | Home Phone | | + + + | Preferred Language | Unknown | + + + | Marital Status | | + + + | Uatsdin Affiliation | Unknown | + + + | Race | Unknown | + + + | Ethnic Group | Unknown | + + + Author + + + | Author | [facility] | | | and [place] | + + + | Organization | [facility] | | | and [place] | + + + | Address | Unknown | + + + | Phone | Unavailable | + + + Support + + + + + | Name | Relationship | Address | Phone | + + + + + | Sigrid Lennon | ECON | [address] | | | | | [place] [address] | | + + + + + | Valentín Saleh | ECON | [address] | | | | | [place] [address] | | + + + + + | Roberto Carlos Lennon | LEVI | Unknown | | + + + + + Care Team Providers + +------+ + | Care Assembler Filters Name | Role | Phone | + [...] Description | +--------+--------+ + + + | 04/09/ | Refill | [facility] [place] | Stephenie Paul, | Medication Refill | | 2016 | | CARDIOLOGY [address] | MD [address] | | | | | [place], | [place], | | | | | [place] [address] | [place] [address] | | | | | [phone] | [phone] | | | | | | | [...] [place], | | | | | | [place] [address] | | | | | | [phone] | | | | | | | | +--------+---------+ + + + documented as of this encounter Visit Diagnoses Not on filedocumented in this encounter"
--- OUTSIDE RECORDS SUMMARY | ~2019-09-12 | XMS | Encounter Summary ---
Demographics + + + | Address | [address] | | | [place] [address] | + + + | Home Phone [...] | Author | [facility] | | | and [place] | + + + | Organization | [facility] | | [...] | | | | | [place] [address] | | + + + + + | Valentín Saleh | ECON | [address] | | | | | [place] [address] | | + + + + + | Roberto Carlos Lennon | LEVI | Unknown | | + + + + + Care Team Providers + +------+ + | Care Manager Banking Name | Role | Phone | + [...] | instability | [address] | [place] | | | | [address] | [address] | [place], | | | | | (ICD-10-CM) | [place] | [place] [address] | | | | | - [address] | [place] | Phone: | | | | | (ICD-9-CM) - | [address] | [phone] | | | | | Gait | Phone: | Fax: | | | | | instability | [phone] | [phone] | | | | | Procedures | Fax: | | | | | | pt eval | [phone] | | +--------+ + + + + + Encounter Details +--------+---------+ + + + | Date | Type | Department | Care Team | Description | +--------+---------+ + + + | 01/08/ | Office | [facility] | Francois Pascal, | Posture imbalance | | 2015 | Visit | [facility] PT | [address] | (Primary Dx); | | | | OP [address] | [address] [place], | Impaired functional | | | | [place] | [place] [address] | mobility, balance, | | | | [address] | [phone] | gait, and endurance; | | | | [phone] | | Left ankle pain | | | | | Kely Quinn B, PT | | | | | | [address] | | | | | | [place] | | | | | | [address] | | | | | | | [...] might be different from t he original. [facility] CTR THERAPY PT OP [address] [place] [address] Physical Therapy Daily Treatment Note Date: 01/08/2015 Patient Information Patient Name: Alyson Lennon Date of : 1930 Age: 84 y.o. Encounter Diagnoses Code Name Primary? R29.3 Posture imbalance Yes Z74.09 Impaired functional mobility, balance, gait, and endurance M25.572 Left ankle pain Date of Onset: 10/24/14 Referring Provider: Francois Pascal MD Rehab Precautions Office Visit from 12/24/2014 in [facility] CTR THER[facility]Y PT OP Rehab Precautions Precautions [...] in this encou nter Plan of Treatment +--------+---------+ + + + | Date | Type | Specialty | Care Team | Description | +--------+---------+ + + + | 12/06/ | Office | Cardiology | Stephenie Paul, | | | 2019 | Visit | | MD [facility] | | | | | | [place], | | | | | | [place] [address] | | | | | | [phone] | | | | | | | [...]
--- OUTSIDE RECORDS SUMMARY | ~2019-09-12 | XMS | Encounter Summary ---
Demographics + + + | Address | [address] | | | [place] [address] | + + + | Home Phone | | + + + | Preferred Language | Unknown | + + + | Marital Status | | + + + | Episcopalian Affiliation | Unknown | + + + | Race | Unknown | + + + | Ethnic Group | Unknown | + + + Author + + + | Author | [facility] | | | and [place] | + + + | Organization | [facility] | | | and [...] | | | | | [place] [address] | | + + + + + | Valentín Saleh | ECON | [id number] | | | | | [place] [address] | | + + + + + | Roberto Carlos Lennon | LEVI | Unknown | | + + + + + Care Team Providers + +------+ + | Care Cook House Laborer Name | Role | Phone | + [...] Description | +--------+--------+ + + + | 04/29/ | Refill | [facility] [place] [facility] | Francois Pascal, | Medication Refill | | 2015 | | MEDICINE [facility] [place] | [address] | | | | | [address]VE [place], | [address] [place], | | | | | [place] [address] | [place] [address] | | | | | [phone] | [phone] | | | | | | | [...] | | | | | | [place] [address] | | | | | | [phone] | | | | | | | | +--------+---------+ + + + documented as of this encounter Visit Diagnoses Not on filedocumented in this encounter"
--- OUTSIDE RECORDS SUMMARY | ~2019-09-12 | XMS | Encounter Summary ---
Demographics + + + | Address | [address] | | | [place] [address] | + + + | Home Phone | | + + + | Preferred Language | Unknown | + + + | Marital Status | | + + + | Restorationist Affiliation | Unknown | + + + | Race | Unknown | + + + | Ethnic Group | Unknown | + + + Author + + + | Author | [facility] | | | and [place] | + + + | Organization | [facility] | | | and [place] | + + + | Address | Unknown | + + + | Phone | Unavailable | + + + Support + + + + + | Name | Relationship | Address | Phone | + + + + + | Sigrid Lennon | ECON | [address] | | | | | [place] [address] | | + + + + + | Valentín Saleh | ECON | [address] | | | | | [place] [address] | | + + + + + | Roberto Carlos Lennon | LEVI | Unknown | | + + + + + Care Team Providers + +------+ + | Care Backing In Machine Tender Name | Role | Phone | [...] Closed | | Physical | Diagnoses | Moraxelh, | Quinn, | | | | Therapy / | R26.81 | Francois Tello MD | Kely Castillo, PT | | | | Rehabilitatio | (ICD-10-CM) | [address] | [address] | | | | n | - [address] | [address] [place] | | | | | (ICD-9-CM) - | [place] | [place] | | | | | Gait | [place] | [address] Phone: | | | | | instability | [address] | [phone] | | | | | Procedures | Phone: | Fax: | | | | | [facility] | [phone] | [phone] | | | | | TREATMENT 45 | Fax: | | | | | | | [phone] | | +--------+--------+ + + + + Encounter Details +--------+---------+ + + + | Date | Type | Department | Care Team | Description | +--------+---------+ + + + | 03/12/ | Office | [facility] | Francois Pascal, | Impaired functional | | 2016 | Visit | MED CTR THERAPY PT | [address] | mobility, balance, | | | | OP [address] | [address] [place], | gait, and endurance | | | | [place], [place] | [place] [address] | (Primary Dx); | | | | [address] | [phone] | Posture imbalance; | | | | [phone] | | Left ankle pain | | | | | Kely Quinn B, PT | | | | | | [address] | | | | | | [place] | | | | | | [address] | | | | | | | [...] encounter Progress Notes Kely Green, PT - 03/12/2015 11:36 AM PSTFormatting of this note might be different from t he original. [facility] CTR THERAPY PT OP [address] [place] [address] Physical Therapy Daily Treatment Note Date: 03/12/2015 Patient Information Patient Name: Alyson Lennon Date of : 1930 Age: 84 y.o. Encounter Diagnoses Code Name Primary? Z74.09 Impaired functional mobility, balance, gait, and endurance Yes R29.3 Posture imbalance M25.572 Left ankle pain Date of Onset: Referring Provider: Francois Pascal MD Rehab Precautions Office Visit from 12/24/2014 in [facility] CTR THERAPY PT OP Rehab Precautions Precautions Comments fall risk Start Time: 1130 Stop time: 1215 Duration: 45 minutes Timed Treatment Codes: 45 minutes # of PT Visits to Date: 15 Subjective: pt found her 4WW in her car and stated that she feels more safe while using it and pt reports that her left ankle continues to be painful Pain Assessment Pain Scale Used: NUMERIC Pain Rating Pre Assessment: 5 Pain Rating Post Assessment: 3 Location: left ankle Objective: Manual Therapy: left ankle grade III-IV mobs to increase DF/PF Exercise/Activity 01/13/15 01/23/15 03/03/15 03/05/15 03/12/15 Left ankle DF/PF Left ankle "Alphabet" x DF stretch on incline board 3x30 sec 3x30 sec (stairs) HEP 3x30 sec 2x20 reps 2x20 reps DF/PF 2x20 reps DF/PF Rocker board 4x20 4x20 each, light resistance, Static balance light UE support 4x20 each, light resistance, Static balance light UE support 4x20 each, light resistance, Static balance light UE support 4x20 each, light resistance, Static balance light UE support, eyes closed Balance activites Blue foam: eyes closed, small [place], SLS 1-0 UE support Blue foam: eyes closed, small [place], SLS 1-0 UE support squats 2x15 (on incline) 2x15 on incline 2x15 on incline Step lunge: left 1x20, OP 1x20, OP Standing LE ex at parallel bar: Hip abd, hip ext 2x10 each Heel raises 2x20 2x15 2x15 Gait activities 400 feet, 4WW Focus on heel-toe 375 feet, SPC Heel-toe Increased gait speed 75 feet x2 SPC Improved heel-toe at end of session 150 feet with SPC Improved gait pattern 400 feet with 4WW: dual task, head turns, high knees Left ankle ROM DF/PF: post 15-0-15 deg Pre:5-0-30 Post:20-0-30 20-0-11 deg Assessment: pt demonstrated improve gait/balance pattern with 4WW and increased speed/step length compared to gait with SPC. Pt had frequent minor LOB's during balance activities but was able to self correct using parallel bar. Pt tolerated all activities well without increa se in left ankle pain. Pt would benefit from cont. Therapy to progress left ankle ROM/streng th in order to improve gait and dynamic balance to improve safety at home and in the [facility]. Plan: Continue with manual therapy, LE strengthening, and gait/balance training. Electronically signed by: Kely Green PT, 03/12/2015 12:16 Patient Name: Alyson Lennon/: 1930/ documented in this encou nter Plan of Treatment +--------+---------+ + + + | Date | Type | Specialty | Care Team | Description | +--------+---------+ + + + | 12/06/ | Office | Cardiology | Stephenie Paul, | | | 2019 | Visit | | [address] | | | | | | [place], | | | | | | [place] [address] | | | | | | [phone] | | | | | | | [...]
--- OUTSIDE RECORDS SUMMARY | ~2019-09-12 | XMS | Encounter Summary ---
Demographics + + + | Address | [address] | | | [place] [address] | + + + | Home Phone | | + + + | Preferred Language | Unknown | + + + | Marital Status | | + + + | Adventism Affiliation | Unknown | + + + | Race | Unknown | + + + | Ethnic Group | Unknown | + + + Author + + + | Author | [facility] | | | and [place] | + + + | Organization | [facility] [...] | | | | | [place] [address] | | + + + + + | Valentín Saleh | ECON | [address] | | | | | [place] [address] | | + + + + + | Roberto Carlos Lennon | LEIV | Je[place] | | + + + + + Care Team Providers + +------+ + | Care Feather Mixer Name | Role | Phone | + +------+ + PCP | Unavailable | + +------+ + Encounter Details +--------+ + + + + | Date | Type | Department | Care Team | Description | +--------+ + + + + | 05/06/ | Hospital | [facility] | Stephenie Paul, | | | 2010 | Encounter | MED CTR LABORATORY | [address] | | | | | [address] [place] | [facility], | | | | | [place], [place] | [place] [address] | | | | | [address] | [phone] | | | | | [phone] | | | +--------+ + + + [...] | | | | | | [place] [address] | | | | | | [phone] | | | | | | | | +--------+---------+ + + + documented as of this encounter Procedures + +--------+ + + + | Procedure Name | Priori | Date/Time | Associated Diagnosis | Comments | | | ty | | | | + +--------+ + + + | LIPID PROFILE | Routin | 05/06/2010 | | Results for this | | | e | 8:21 AM | | procedure are in the | | | | PST | | results section. | + +--------+ + + + | HEMOGLOBIN A1C | Routin | 05/06/2010 | | Results for this | | | e | 8:21 AM | | procedure are in the | | | | PST | | results section. | + +--------+ + + + | COMPREHENSIVE | Routin | 05/06/2010 | | Results for this | | METABOLIC PANEL | e | 8:21 AM | | procedure are in the | | | | PST | | results section. | + +--------+ + + + documented in this encounter Results Hemoglobin A1C (05/06/2010 8:21 AM PST) + + + + + + | Component | Value | Ref Range | Performed | Pathologist | | | | | At | Signature | + + + + + + | Hemoglobin | 7.3 (H)Comment: | 4.3 - 5.8 % | [...] + | [facility] | [address] | [place], [place] | [phone] | | [facility] | | [address] | | | - LABORATORY | | | | + + + + + | [facility] | [address] | [place] | | | [facility] | | [id number] [place] [address] | | | - LABORATORY | | | | + + + + + Lipid Profile (05/06/2010 8:21 AM PST) + + + + + + | Component | Value | Ref Range | Performed | Pathologist | | | | | At | Signature | + + + + + + | Triglycerid | 135 | 35 - 160 mg/dL | [facility] | | | es | | | [facility] | | | | | | MEDICAL | | | | | | CENTER - | | | | | | LABORATORY | | + + + + + + | Cholesterol | 134 (L) | 150 - 200 mg/dL | [facility] | | | | | | [facility] | | | [facility] | | MEDICAL | | | | | | CENTER - | | | | | | LABORATORY | | + + + + + + | HDL | 44 | 29 - 89 mg/dL | [facility] | | | | | | [facility] | | | | | | MEDICAL | | | | | | CENTER - | | | | | | LABORATORY | | + + + + + + | LDL, | 63 | <130 mg/dL | [facility] | | | Calculated | | | [facility] | | | | | | MEDICAL | | | | | | CENTER - | | | | | | LABORATORY | | + + + + + + | Chol/HDL | 3.0Comment: | | [facility] | | | Ratio | | | [facility] | | | | | | MEDICAL | | | | ------- RISK CATEGORY: | | CENTER - | | | | CHOL/HDL * T.CHOL * LDL | | LABORATORY | | | | CHOL * HDL CHOL | | | | | | | | | | | | RATIO DESIRABLE: (M) | | | | | | 4.0-6.7 <200 | | | | | | <130 >50 | | | | | | (F) | | | | | | 3.7-4.2 BORDERLINE:(M) | | | | | | 6.7-7.4 200-240 | | | | | | 130-160 <45 | | | | | | (F) | | | | | | 4.2-5.5 HIGH RISK: (M) | | | | | | >7.4 >240 | | | | | | >160 <35 | | | | | | (F) | | | | | | >5.5 | | | | | | | | | | | | | | | | | | --------- | | | | + + + + + + + + | Specimen | + + | | + + + + + + + | Performing | Address | City/State/Zipcode | Phone Number | | Organization | | | | + + + + + | [facility] | [address] | [place] | [phone] | | [facility] | | [address] | | | - LABORATORY | | | | + + + + + | [facility] | [address] | [place] | | | [facility] | | [address] | | | - LABORATORY | | | | + + + + + Comprehensive Metabolic Panel (05/06/2010 8:21 AM PST) + + + + + + | Component | Value | Ref Range | Performed | Pathologist | | | | | At | Signature | + + + + + + | Glucose | 105 | 70 - 109 mg/dL | [facility] | | | | [...] + + + + | Alkaline | 56 | 40 - 110 IU/L | [facility] | | | Phosphatase | | | [facility] | | | | | | MEDICAL | | | | | | CENTER - | | | | | | LABORATORY | | + + + + + + | AST | 39 | 10 - 42 IU/L | [facility] | | | | | | [facility] | | | | | | MEDICAL | | | | | | CENTER - | | | | | | LABORATORY | | + + + + + + | ALT | 29 | 6 - 45 IU/L | [facility] | | | | | | [facility] | | | | | | MEDICAL | | | | | | CENTER - | | | | | | LABORATORY | | + + + + + + | Bilirubin | 1.2 (H) | 0.2 - 1.0 mg/dL | [facility] | | | Total | | | [facility] | | | | | | MEDICAL | | | | | | CENTER - | | | | | | LABORATORY | | + + + + + + | Total | 6.6 | 6.0 - 7.8 gm/dL | [facility] | | | Protein | | | [facility] | | | | | | MEDICAL | | | | | | CENTER - | | | | | | LABORATORY | | + + + + + + | Albumin | 3.6 | 3.2 - 5.0 gm/dL | [facility] | | | | | | [facility] | | | | | | MEDICAL | | | | | | CENTER - | | | | | | LABORATORY | | + + + + + + | BUN | 24 (H) | 7 - 18 mg/dL | [facility] | | | | | | [facility] | | | | | [facility] | | | | | | CENTER - | | | | | | LABORATORY | | + + + + + + | Creatinine | 1.35 (H) | 0.60 - 1.30 | [facility] | | | | | mg/dL | [facility] | | | | | | MEDICAL | | | | | | CENTER - | | | | | | LABORATORY | | + + + + + + | Estimated | 38 (L)Comment: For | >60 mL/min/A | [facility] | | | GFR | -Americans, | | [facility] | | | | please multiply the | | MEDICAL | | | | result by 1.210 | | CENTER - | | | | This is an estimated | | LABORATORY | | | | GFR and is based on | | | | | | a standard body | | | | | | mass and serum | | | | | | creatinine | | | | + + + + + + | BUN/Creatin | 17.8 | 12 - 20 | [facility] | [...] K | 4.3 | 3.5 - 5.1 mEq/l | [facility] | | | | | | [facility] | | | | | | MEDICAL | | | | | | CENTER - | | | | | | LABORATORY | | + + + + + + | Cl | 102 | 98 - 109 mEq/l | [facility] | | | | | | [facility] | | | | | | MEDICAL | | | | | | CENTER - | | | | | | LABORATORY | | + + + + + + | CO2 | 31 | 24 - 31 mEq/L | [facility] | | | | | | [facility] | | | | | | MEDICAL | | | | | | CENTER - | | | | | | LABORATORY | | + + + + + + | Anion Gap | 10.3 | 6.0 - 17.0 | [facility] | [...] + | [facility] | [address] | [place], [place] | [phone] | | [facility] | | [address] | | | - LABORATORY | | | | + + + + + | [facility] | [address] | [place], [place] | | | [facility] | | [id number] [place] [address] | | | - LABORATORY | | | | + + + + + documented in this encounter Visit Diagnoses Not on filedocumented in this encounter"
--- OUTSIDE RECORDS SUMMARY | ~2019-09-12 | XMS | Encounter Summary ---
Demographics + + + | Address | [address] | | | [place] [address] | + + + | Home Phone | | + + + | Preferred Language | Unknown | + + + | Marital Status | | + + + | Evangelical Affiliation | Unknown | + + + | Race | Unknown | + + + | Ethnic Group | Unknown | + + + Author + + + | Author | [facility] | | | and [place] | + + + | Organization | [facility] | | | and [...] | | | | | [place] [address] | | + + + + + | Valentín Saleh | ECON | [address] | | | | | [place] [address] | | + + + + + | Roberto Carlos Lennon | LEVI | Unknown | | + + + + + Care Team Providers + +------+ + | Care Clinical Informatics Educator Name | Role | Phone | + +------+ + | Francois Pascal MD | PCP | | + +------+ + Reason for Visit + +--------+ + | Reason | Onset | Comments | | | Date | | + +--------+ + | Appointment | 12/05/ | | | | 2017 | | + +--------+ + Encounter Details +--------+ + + + + | Date | Type | Department | Care Team | Description | +--------+ + + + + | 12/05/ | Telephone | [facility] | Francois Pascal, | Appointment | | 2017 | | [facility] [place] | [address] | | | | | [address] | [address] [place], | | | | | [place] | [place] [address] | | | | | [address] | [phone] | | | | | [phone] | | | +--------+ + + + [...] this encounter Miscellaneous Notes Telephone Encounter - Rashmi Hall RN - 12/05/2017 9:44 AM PDTTelephone call to beata be to schedule follow up visit after patient was seen in the ED. Voice mail, left message to call back. doc umented in this encounter Plan of Treatment +--------+---------+ + + + | Date | Type | Specialty | Care Team | Description | +--------+---------+ + + + | 12/06/ | Office | Cardiology | Stephenie Paul, | | | 2019 | Visit | | [address] | | | | | | [place], | | | | | | [place] [address] | | | | | | [phone] | | | | | | | | +--------+---------+ + + + documented as of this encounter Visit Diagnoses Not on filedocumented in this encounter"
--- OUTSIDE RECORDS SUMMARY | ~2019-09-12 | XMS | Encounter Summary ---
Demographics + + + | Address | [address] | | | [place] [address] | + + + | Home Phone [...] | Author | [facility] | | | and [place] | + + + | Organization | [facility] | [...] | | | | | [place] [address] | | + + + + + | Valentín Saleh | ECON | [address] | | | | | [place] [address] | | + + + + + | Roberto Carlos Lennon | LEVI | Unknown | | + + + + + Care Team Providers + +------+ + | Care Health Care Sanitary Technician Name | Role | Phone | + +------+ + | Francois Pascal MD | PCP | | + +------+ + Encounter Details +--------+ + + + + | Date | Type | Department | Care Team | Description | +--------+ + + + + | 06/03/ | Hospital | [facility] | [place], | CHRONIC KIDNEY | | 2015 | Encounter | MED CTR LABORATORY | [address] | DISEASE STAGE III | | | | [address] [place] | [facility] | (MODERATE); | | | | [place], [place] | [address] [place], [place] | HYPERTENSION NEC; | | | | [address] | [address] | Type 2 diabetes | | | | [phone] | | mellitus with | | | | | | hyperglycemia (HCC) | +--------+ + + + + [...] | | | | | | [place] [address] | | | | | | [phone] | | | | | | | | +--------+---------+ + + + documented as of this encounter Procedures + +--------+ + + + | Procedure Name | Priori | Date/Time | Associated Diagnosis | Comments | | | ty | | | | + +--------+ + + + | CBC WITH | Routin | 06/03/2014 | CHRONIC KIDNEY | Results for this | | DIFFERENTIAL | e | 9:23 AM | DISEASE STAGE III | procedure are in the | | | | PDT | (MODERATE) | results section. | | | | | HYPERTENSION NEC | | + +--------+ + + + | HEMOGLOBIN A1C | Routin | 06/03/2014 | CHRONIC KIDNEY | Results for this | | | e | 9:23 AM | DISEASE STAGE III | procedure are in the | | | | PDT | (MODERATE) Type 2 | results section. | | | | | diabetes mellitus | | | | | | with hyperglycemia | | | | | | (HCC) HYPERTENSION | | | | | | NEC | | + +--------+ + + + | RENAL FUNCTION PANEL | Routin | 06/03/2014 | CHRONIC KIDNEY | Results for this | | | e | 9:23 AM | DISEASE STAGE III | procedure are in the | | | | PDT | (MODERATE) | results section. | | | | | HYPERTENSION NEC | | + +--------+ + + + documented in this encounter Results Hemoglobin A1C (06/03/2014 9:23 AM PDT) + +---------+ + + + [...] + | [facility] | [address] | [place] | [phone] | | [facility] | | [address] | | | - LABORATORY | | | | + + + + + CBC with Differential (06/03/2014 9:23 AM PDT) + + + + + + | Component | Value | Ref Range | Performed | Pathologist | | | | | At | Signature | + + + + + + | White Blood | 9.6 | 4.0 - 11.0 K/uL | [facility] | | | Cells | | | [facility] | | | | | | MEDICAL | | | | | | CENTER - | | | | | | LABORATORY | | + + + + + + | Red Blood | 3.89 | 3.70 - 5.20 | [facility] | | | Cells | | M/uL | [facility] | | | | | | MEDICAL | | | | | | CENTER - | | | | | | LABORATORY | | + + + + + + | Hemoglobin | 14.1 | 11.5 - 16.0 | [facility] | [...] + + + + | MCV | 105.3 (H) | 83.0 - 101.0 fL | [...] + + + + | MCHC | 34.3 | 32.0 - 36.0 | [facility] | [...] + + + + | Platelet | 179 | 140 - 440 K/uL | [facility] | | | Count | | | [facility] | | | | | | MEDICAL | | | | | | CENTER - | | | | | | LABORATORY | | + + + + + + | MPV | 8.1 | fL | [facility] | | | | | | [facility] | | | | | | MEDICAL | | | | | | CENTER - | | | | | | LABORATORY | | + + + + + + | % | 54.3 | 45.0 - 82.0 % | [facility] | | | Neutrophils | | | [facility] | | | | | | MEDICAL | | | | | | CENTER - | | | | | | LABORATORY | | + + + + + + | % | 25.4 | 20.0 - 45.0 % | [facility] | | | Lymphocytes | | | [facility] | | | | | | MEDICAL | | | | | | CENTER - | | | | | | LABORATORY | | + + + + + + | % Monocytes | 12.8 (H) | 4.0 - 12.0 % | [facility] | | | | | | [facility] | | | | | | MEDICAL | | | | | | CENTER - | | | | | | LABORATORY | | + + + + + + | % | 6.5 (H) | 0.0 - 5.0 % | [facility] | | | Eosinophils | | | [facility] | | | | | | MEDICAL | | | | | | CENTER - | | | | | | LABORATORY | | + + + + + + | % Basophils | 1.0 | 0.0 - 1.0 % | [facility] | | | | | | [facility] | | | | | | MEDICAL | | | | | | CENTER - | | | | | | LABORATORY | | + + + + + + | Absolute | 5.20 | 1.80 - 8.50 | [facility] | [...] [address] | [place] | [phone] | | [facility] | | [address] | | | - LABORATORY | | | | + + + + + Renal Function Panel (06/03/2014 9:23 AM PDT) + + + + + + | Component | Value | Ref Range | Performed | Pathologist | | | | | At | Signature | + + + + + + | Na | 141 | 136 - 149 | [facility] | [...] + + + + | Glucose | 245 (H) | 70 - 109 mg/dL | [...] mL/min/1.73m2 | [facility] | | | [place] | RATE,ESTIMATED | | MEDICAL | | | | mL/min/1.75g7Irmf than | | CENTER - | | [...] + + + + | Phosphorus | 3.3 | 2.5 - 4.6 mg/dL | [facility] | | | | | | [facility] | | | | | | MEDICAL | | | | | | CENTER - | | | | | | LABORATORY | | + + + + + + | BUN/Creatin | 15.7 | | [facility] | | | ine [...] + + | [facility] | [address] | [place] | [phone] | | [facility] | | [address] | | | - LABORATORY | | | | + + + + + documented in this encounter Visit Diagnoses + + | Diagnosis | + + | CHRONIC KIDNEY DISEASE STAGE III (MODERATE) Chronic kidney disease, Stage III | | (moderate) | + + | HYPERTENSION NEC Complications affecting other specified body systems, hypertension | + + | Type 2 diabetes mellitus with hyperglycemia (HCC) Type II or unspecified type | | diabetes mellitus without mention of complication, not stated as uncontrolled | + + documented in this encounter"
--- OUTSIDE RECORDS SUMMARY | ~2019-09-12 | XMS | Encounter Summary ---
Demographics + + + | Address | [address] | | | [place] [address] | + + + | Home Phone | | + + + | Preferred Language | Unknown | + + + | Marital Status | | + + + | Spiritism Affiliation | Unknown | + + + | Race | Unknown | + + + | Ethnic Group | Unknown | + + + Author + + + | Author | [facility] | | | and [place] | + + + | Organization | [facility] [...] | | | | | [place] [address] | | + + + + + | Valentín Saleh | ECON | [phone] | | | | | [place] [address] | | + + + + + | Roberto Carlos Lennon | LEVI | Unknown | | + + + + + Care Team Providers + +------+ + | Care Research Assistant Name | Role | Phone | + +------+ + | Francois Pascal MD | PCP | | + +------+ + Encounter Details +--------+ + + + + | Date | Type | Department | Care Team | Description | +--------+ + + + + | 09/19/ | Orders Only | [facility] [place] | [place], | CHRONIC KIDNEY | | 2018 | | NEPHROLOGY [address] | [address] | DISEASE STAGE III | | | | [address] | [address] [facility] | (MODERATE) (Primary | | | | [place], [place] | [address] [place], [place] | Dx); Uncontrolled | | | | [address] | [address] | type 2 diabetes | | | | [phone] | | mellitus with | | | | | | diabetic | | | | | | nephropathy, | | | | | | unspecified whether | | | | | | continuous churn buttermaker insulin | | | | | | use (HCC) | +--------+ + + + + [...] encounter Progress Notes Zaynab Humphries RN - 09/19/2017 1:55 PM PDTLabs for upcoming nephrology appointment sent to: 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
--- OUTSIDE RECORDS SUMMARY | ~2019-09-12 | XMS | Encounter Summary ---
Demographics + + + | Address | [address] | | | [place] [address] | + + + | Home Phone | | + + + | Preferred Language | Unknown | + + + | Marital Status | | + + + | Gnosticism Affiliation | Unknown | + + + | Race | Unknown | + + + | Ethnic Group | Unknown | + + + Author + + + | Author | [facility] | | | and [place] | + + + | Organization | [facility] | | | and [place] | + + + | Address | Unknown | + + + | Phone | Unavailable | + + + Support + + + + + | Name | Relationship | Address | Phone | + + + + + | Sigrid Lennon | ECON | [address] | | | | | [place] [address] | | + + + + + | Valentín Saleh | ECON | [phone] | | | | | [place] [address] | | + + + + + | Roberto Carlos Lennon | LEVI | [place] | | + + + + + Care Team Providers + +------+ + | Care Human Performance Technologist Name | Role | Phone | + +------+ + PCP | Unavailable | + +------+ + Encounter Details +--------+ + + + + | Date | Type | Department | Care Team | Description | +--------+ + + + + | 09/20/ | Hospital | [facility] | | | | 2000 | Encounter | [facility] | | | | | | [address] | | | | | | [place] | | | | | | [address] | | | | | | [phone] | | | +--------+ + + + [...] | | | | | | [place] [address] | | | | | | [phone] | | | | | | | | +--------+---------+ + + + documented as of this encounter Visit Diagnoses Not on filedocumented in this encounter"
--- OUTSIDE RECORDS SUMMARY | ~2019-09-12 | XMS | Encounter Summary ---
Demographics + + + | Address | [address] | | | [place] [address] | + + + | Home Phone | | + + + | Preferred Language | Unknown | + + + | Marital Status | | + + + | Church Affiliation | Unknown | + + + | Race | Unknown | + + + | Ethnic Group | Unknown | + + + Author + + + | Author | [facility] | | | and [place] | + + + | Organization | [facility] | [...] | | | | | [place] [address] | | + + + + + | Valentín Saleh | ECON | [phone] | | | | | [place] [address] | | + + + + + | Roberto Carlos Lennon | LEVI | Unknown | | + + + + + Care Team Providers + +------+ + | Care Outboard Motorboat Operator Name | Role | Phone | + +------+ + | Francois Pascal MD | PCP | | + +------+ + Encounter Details +--------+ + + + + | Date | Type | Department | Care Team | Description | +--------+ + + + + | 12/14/ | Abstract | [place] [facility] | Francois Pascal, | | | 2011 | | Conversion Location | [address] | | | | | [address] | [address], | | | | | [place], [place] | [place] [address] | | | | | [address] | [phone] | | | | | [phone] | | | +--------+ + + + [...] | | | | | | [place] [address] | | | | | | [phone] | | | | | | | | +--------+---------+ + + + documented as of this encounter Visit Diagnoses Not on filedocumented in this encounter"
--- OUTSIDE RECORDS SUMMARY | ~2019-09-12 | XMS | Encounter Summary ---
Demographics + + + | Address | [address] | | | [place] [address] | + + + | Home Phone [...] Author | [facility] | | | and [place] | + + + | Organization | [facility] | | | and [...] | | | | | [place] [address] | | + + + + + | Valentín Saleh | ECON | [phone] | | | | | [place] [address] | | + + + + + | Roberto Carlos Lennon | LEVI | Unknown | | + + + + + Care Team Providers + +------+ + | Care Local Combination Truck Driver Name | Role | Phone | + +------+ + | Francois Pascal MD | PCP | | + +------+ + Reason for Visit + + + | Reason | Comments | + + + | Diabetes | | + + + | Hypertension | | + + + Encounter Details +--------+---------+ + + + | Date | Type | Department | Care Team | Description | +--------+---------+ + + + | 02/16/ | Office | [facility] | Francois Pascal, | Dyslipidemia | | 2016 | Visit | MEDICINE [address] | [address] | (Primary Dx); | | | | [address] [place], | [address], | Primary | | | | [place] [address] | [place] [address] | osteoarthritis of | | | | [phone] | [phone] | left ankle; Diabetes | | | | | | mellitus due to | | | [...] + + + | Blood Pressure | 120/68 | 02/17/2016 1:01 PM | | | | | PST | | + + + + + | Pulse | 74 | 02/17/2016 1:01 PM | | | | | PST | | + + + + + | Temperature | 36.2 C (97.2 F) | 02/17/2016 1:01 PM | | | | | PST | | + + + + + | Respiratory Rate | 16 | 02/17/2016 1:01 PM | | | | | PST | | + + + + + | Oxygen Saturation | 98% | 02/17/2016 1:01 PM | | | | | PST | | + + + + + | Inhaled Oxygen | - | - | | | Concentration | | | | + + + + + | Weight | 71.2 kg (157 lb) | 02/17/2016 1:01 PM | | | | | PST | | + + + + + | Height | 157.5 cm (5' 2") | 02/17/2016 1:01 PM | | | | | PST | | + + + + + | Body Mass Index | 28.72 | 02/17/2016 1:01 PM | | | | | PST | | + + + + + documented in this encounter Progress Notes Francois Pascal MD - 02/17/2016 1:15 PM PSTFormatting of this note might be different f rom the original. Subjective: Patient ID: Alyson Lennon is a 85 y.o. female. HPI Chronic L ankle OA, Followed by Dr Valero with recent injection, There was miminal improvement , She would like to consider a joint replacement. She is now seeing Dr Ochoa, [facility] rthopedics. DM2, with neuropathy, There is no foot ulcer or sore. There is no P,P or P Lantus 120 Q HS, novolog 35, lantus. CKD, she drinks 6 glasses of water daily, She avoids all NSAIDS except for tylenol. She follows with Kemar Mcclelland For this. This is unchanged. HTN, There is no recent chest pain SOB, she has her baseline ankle swelling is unchanged. She declines further colonoscopy in the future. Past Medical History: Type 2 DM with [...] VSD Father 50 Pneumonia Family Hx of Lenawee's chorea Sister and 2 brothers: CAD, Lenawee's Disease to [place] - with 2 Healthy Children No kidney disease in family. Social History: Born in [facility] for [facility] years. and Remarried 2 [...] pain, no joint swelling and No arthralgias. s ome joint pain Skin: Neg for color change,no [...] Lymph, no cervical, axillary, inguinal adenopathy Musculoskeletal, some gross deformity left ankle. or loss or range of motion Skin, no gross lesions Assessment: 1. Dyslipidemia atorvaSTATin (LIPITOR) 40 mg tablet 2. Primary osteoarthritis of left ankle 3. Diabetes mellitus due to underlying condition with hyperglycemia, with long-term current use of insulin (HCC) 4. CHRONIC KIDNEY DISEASE STAGE III (MODERATE) 5. Essential hypertension with goal blood pressure less than 130/80 Plan: She looks and feels at baseline. She still has not heard from Dr Ochoa regarding her [facility] [place] replacement. Labs were reviewed with the pt today and are acceptable. RTC clarke hs with labs prior. Lipitor trail. Otherwise continue current medical regimen. documented in [...] | | | | | | [place] [address] | | | | | | [phone] | | | | | | | | +--------+---------+ + + + documented as of this encounter Results Lipid Panel (05/27/2016 9:00 AM PDT) + + + + + + | Component | Value | Ref Range | Performed | Pathologist | | | | | At | Signature | + + + + + + | Triglycerid | 208 (H) | 35 - 160 mg/dL | [facility] | | | es | | | [facility] | | | | | | [facility] | | | | | | [facility] - | | | | | | LABORATORY | | + + + + + + | Cholesterol | 136 (L) | 150 - 200 mg/dL | [facility] | | | | | | [facility] | | | | | [facility] | | | | | | [facility] - | | | | | | LABORATORY | | + + + + + + | HDL | 35Comment: New HDL | 28 - 83 mg/dL | [facility] | | | | Reference Range as of | | [facility] | | | | November 14, 2014 | | MEDICAL | | | | Values may be 10-20% | | CENTER - | | | | lower with new, | | LABORATORY | | | | standardized method. | | | | + + + + + + | Chol/HDL | 3.9 | | [facility] | | | Ratio | | | [facility] | | | | | | [facility] | | | | | | CENTER - | | | | | | LABORATORY | | + + + + + + | LDL, | 59 | <=130 mg/dL | [facility] | | | Calculated | | | [facility] | | [...] ST. | [address] | [place], [place] | [phone] | | [facility] | | [address] | | | - LABORATORY | | | | + + + + + Hemoglobin A1C (05/27/2016 9:00 AM PDT) + +---------+ + + + | Component | Value | Ref Range | Performed | Pathologist | | | | | At | Signature | + +---------+ + + + | Hemoglobin | 9.5 (H) | 4.3 - 6.0 % | [facility] | | | A1c | | | [facility] | | | | | | [facility]ICAL | | | | | | CENTER - | | | | | | LABORATORY | | + +---------+ + + + | Estimated | 226 | mg/dL | [facility] | | | Average | | | [address] | [place] | [phone] | | [facility] | | [address] | | | - LABORATORY | | | | + + + + + CBC with Differential (05/27/2016 9:00 AM PDT) + + + + + [...] + + + | Red Blood | 4.44 | 3.70 - 5.20 | [facility] | | | Cells | | M/uL | [facility] | | | | | | MEDICAL | | | | | | CENTER - | | | | | | LABORATORY | | + + + + + + | Hemoglobin | 14.5 | 11.5 - 16.0 | [facility] | | | | | g/dL | [facility] | | | | | | [facility] | | | | | | CENTER - | | | | | | LABORATORY | | + + + + + + | Hematocrit | 43.4 | 34.0 - 47.0 % | [facility] | | | | | | [facility] | | | | | | [facility] | | | | | | CENTER - | | | | | | LABORATORY | | + + + + + + | MCV | 97.7 | 83.0 - 101.0 fL | [facility] | | | | | | [facility] | | | | | | [facility] | | | | | | CENTER - | | | | | | LABORATORY | | + + + + + + | MCH | 32.6 | 28.0 - 35.0 pg | [facility] [...] + + + + | RDW-CV | 13.4 | <15.0 % | [facility] | | | | | | [facility] | | | | | | MEDICAL | | | | | | CENTER - | | | | | | LABORATORY | | + + + + + + | Platelet | 208 | 140 - 440 K/uL | [facility] [...] + + + + | % | 58.5 | 45.0 - 82.0 % | [facility] | | | Neutrophils | | | [facility] | | | | | | MEDICAL | | | | | | CENTER - | | | | | | LABORATORY | | + + + + + + | % | 29.3 | 20.0 - 45.0 % | [facility] [...] + + + + | % | 4.3 | 0.0 - 5.0 % | [facility] [...] + + + + | Absolute | 6.50 | 1.80 - 8.50 | [facility] | | | Neutrophils | | K/uL | [facility] | | | | | | MEDICAL | | | | | | CENTER - | | | | | | LABORATORY | | + + + + + + | Absolute | 3.20 | 0.60 - 3.20 | [facility] | | | Lymphocytes | | K/uL | [facility] | | | | | | MEDICAL | | | | | | CENTER - | | | | | | LABORATORY | | + + + + + + | Absolute | 0.80 | 0.00 - 1.00 | [facility] | [...] + | [facility] | [address] | [place] | [phone] | | [facility] | | [address] | | | - LABORATORY | | | | + + + + + Comprehensive Metabolic Panel (05/27/2016 9:00 AM PDT) + + + + + + | Component | Value | Ref Range | Performed | Pathologist | | | | | At | Signature | + + + + + + | Na | 144 | 136 - 149 | [facility] | [...] + + + + | Cl | 105 [...] + + + + | Glucose | 86 | 70 - 109 mg/dL | [facility] | | | | | | [facility] | | | | | | [facility]ICAL | | | | | | CENTER - | | | | | | LABORATORY | | + + + + + + | BUN | 14 | 7 - 18 mg/dL | [facility] | | | | | | [facility] | | | [facility] | | MEDICAL | | | | | | CENTER - | | | | | | LABORATORY | | + + + + + + | Creatinine | 1.05 | 0.60 - 1.30 | [facility] | | | | | mg/dL | [facility] | | | | | | MEDICAL | | | | | | CENTER - | | | | | | LABORATORY | | + + + + + + | eGFR if not | 50 (L)Comment: | >=60 | [facility] | | | | GLOMERULAR FILTRATION | mL/min/1.73m2 | [facility] | | | [facility] | RATE,ESTIMATED | | MEDICAL | | | | mL/min/1.37h6Mjhp than | | CENTER - | | [...] | 9.5 | 8.3 - 10.5 | [facility] | | | | | mg/dL | [facility] | | | | | | MEDICAL | | | | | | CENTER - | | | | | | LABORATORY | | + + + + + + | Albumin | 3.7 | 3.2 - 5.0 g/dL | [facility] [...] + + + + | Total | 6.7 | 6.0 - 7.8 g/dL | [facility] | | | Protein | | | [facility] | | | | | | MEDICAL | | | | | | CENTER - | | | | | | LABORATORY | | + + + + + + | AST | 37 | 10 - 42 U/L | [facility] | | | | | | [facility] | | | | | | MEDICAL | | | | | | CENTER - | | | | | | LABORATORY | | + + + + + + | ALT | 27 | 6 - 45 U/L | [facility] | | | | | | [facility] | | [facility] | | | [facility]ICAL | | | | | | CENTER - | | | | | | LABORATORY | | + + + + + + | Alkaline | 57 | 40 - 110 U/L | [facility] | | | Phosphatase | | | [facility] | | | | | | MEDICAL | | | | | | CENTER - | | | | | | LABORATORY | | + + + + + + | Globulin | 3.0 | 2.1 - 3.8 g/dL | [facility] | | | | | | [facility] | | | | | | [facility]ICAL | | | | | | CENTER - | | | | | | LABORATORY | | + + + + + + | Albumin/Kalani | 1.2 | 0.8 - 2.0 | [facility] | | | bulin Ratio | | | [facility] | | | | | | MEDICAL | | | | | | CENTER - | | | | | | LABORATORY | | + + + + + + | BUN/Creatin | 13.3 | | [facility] | | | ine [...] [address] | [place] | [phone] | | [facility] | | [address] | | | - LABORATORY | | | | + + + + + documented in this encounter Visit Diagnoses + + | Diagnosis | + + | Dyslipidemia - Primary Other and unspecified hyperlipidemia | + + | Primary osteoarthritis of left ankle | + + | Diabetes mellitus due to underlying condition with hyperglycemia, with long-term | | current use of insulin (HCC) | + + | CHRONIC KIDNEY DISEASE STAGE III (MODERATE) Chronic kidney disease, Stage III | | (moderate) | + + | Essential hypertension with goal blood pressure less than 130/80 | + + documented in this encounter
--- OUTSIDE RECORDS SUMMARY | ~2019-09-12 | XMS | Encounter Summary ---
Demographics + + + | Address | [address] | | | [place] [address] | + + + | Home Phone | | + + + | Preferred Language | Unknown | + + + | Marital Status | | + + + | Roman Catholic Affiliation | Unknown | + + + | Race | Unknown | + + + | Ethnic Group | Unknown | + + + Author + + + | Author | and [facility] | | | and [place] | + + + | Organization | and [facility] | | | and [place] | + + + | Address | Unknown | + + + | Phone | Unavailable | + + + Support + + + + + | Name | Relationship | Address | Phone | + + + + + | Sigrid Lennon | ECON | [address] | | | | | [place] [address] | | + + + + + | Valentín Saleh | ECON | [address] | | | | | [place] [address] | | + + + + + | Roberto Carlos Lennon | LEVI | Unknown | | + + + + + Care Team Providers + +------+ + | Care Proof Passer Name | Role | Phone | + +------+ + | Francois Pascal MD | PCP | | + +------+ + Reason for Visit + + + | Reason | Comments | + + + | Annual Exam | | + + + | Coronary Artery | | | Disease | | + + + | Hypertension | | + + + | Hyperlipidemia | | + + + Encounter Details +--------+---------+ + + + | Date | Type | Department | Care Team | Description | +--------+---------+ + + + | 03/21/ | Office | [facility] | Stephenie Paul, | CAD (coronary artery | | 2015 | Visit | CARDIOLOGY [address] | disease) (Primary | | | | [address] [place], | [place], | Dx); Essential | | | | [place] [address] | [place] [address] | hypertension | | | | [phone] | [phone] | | | | | | | [...] + + + | Blood Pressure | 128/60 | 03/21/2014 3:10 PM | left arm | | | | PST | | + + + + + | Pulse | 62 | 03/21/2014 3:10 PM | regular | | | | PST | | + + + + + | Temperature | - | - | | + + + + + | Respiratory Rate | 16 | 03/21/2014 3:10 PM | | | | | PST | | + + + + + | Oxygen Saturation | - | - | | + + + + + | Inhaled Oxygen | - | - | | | Concentration | | | | + + + + + | Weight | 73.3 kg (161 lb 9.6 | 03/21/2014 3:10 PM | | | | oz) | PST | | + + + + + | Height | 162.6 cm (5' 4") | 03/21/2014 3:10 PM | | | | | PST | | + + + + + | Body Mass Index | 27.74 | 03/21/2014 3:10 PM | | | | | PST | | + + + + + documented in this encounter Progress Notes Stephenie Paul MD - 03/21/2014 3:27 PM PSTFormatting of this note might be different f rom the original. PATIENT NAME: Alyson Lennon : 1930: AGE: 83 y.o. PRIMARY CARE: Francois Pascal MD OUTPATIENT FOLLOW UP VISIT Date of Service: 03/21/2014 HISTORY OF PRESENT ILLNESS: Alyson Lennon is a 83 y.o. female with an extensive history of CAD, history of hypertensi on, hyperlipidemia, and type 2 diabetes. She is being seen today for a treatment of her CAD. She was last seen on 03/02/2013 she was doing well. Since that time, she has been doing we ll from cardiac standpoint. She's tried to stay physically active by walking in the house a nd keep up with the housework. Her physical activities do limited because of the left ankle pain. Today, she is feeling good and denies any specific cardiac complaint. There is no stacy st pain or chest discomfort both at rest and on exertion. Patient denies breathlessness. T here is no palpitation dizziness or lightheadedness. There is no ankle or leg swelling. Naren be can sleep on one pillow at night without difficulty breathing. MEDICAL, SURGICAL, AND PERSONAL HISTORY Past Medical, Surgical, Family, and Social History are reviewed in EPIC. CURRENT PROBLEMS Patient Active Problem List Diagnosis CAROTID STENOSIS AMAUROSIS FUGAX DEMYELINATING DISEASE, CENTRAL NERVOUS SYSTEM FRACTURE, ANKLE, LEFT Gout, unspecified OSTEOARTHRITIS, ANKLE, LEFT FATIGUE RENAL INSUFFICIENCY HYPERTENSION NEC VIRAL URI HYPERTRIGLYCERIDEMIA VITAMIN D DEFICIENCY HTN CKD UNS W/CKD STAGE I THRU STAGE IV/UNS DM type 2, uncontrolled, with renal complications Glossitis CAD Hyperlipidemia AMI - ANTEROSEPTAL 1994 CONGESTIVE HEART FAILURE VSD - 1994 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 THROMBOPHLEBITIS CHRONIC KIDNEY DISEASE STAGE III (MODERATE) ARTHRITIS, CHRONIC DM (diabetes mellitus) 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 CURRENT MEDICATIONS Current Outpatient Prescriptions Medication Sig Dispense Refill allopurinol (ZYLOPRIM) 100 [...] 3 insulin aspart (NOVOLOG) 100 units/mL injection insulin glargine (LANTUS) 100 units/mL injection INJECT 120 UNITS AT BEDTIME 50 mL 6 JANUVIA 100 MG tablet TAKE ONE TABLET BY MOUTH EVERY DAY 90 tablet 1 lisinopril (PRINIVIL,ZESTRIL) 40 MG tablet TAKE ONE TABLET BY MOUTH EVERY DAY 90 table t 3 methotrexate 2.5 mg tablet TAKE 5 TABLETS BY MOUTH ONCE WEEKLY 20 tablet 11 metoprolol (TOPROL-XL) 200 MG 24 hr tablet TAKE ONE TABLET BY MOUTH EVERY DAY 90 table t 3 multivitamin (THERAGRAN) per tablet Take 1 by mouth daily niacin (NIASPAN) 500 mg CR tablet TAKE ONE TABLET BY MOUTH EVERY DAY 30 tablet 6 simvastatin (ZOCOR) 40 mg tablet TAKE ONE-HALF TABLET BY MOUTH EVERY DAY 135 tablet 1 ALLERGIES Allergies Allergen Reactions Codeine Sulfate Nausea And Vomiting Darvon Nausea Only Estrogens Patient can't remember ROS Review of Systems Constitutional: Positive for weight loss and malaise/fatigue. Negative for fever, chills an d diaphoresis. HENT: Positive for hearing loss, nosebleeds and tinnitus. Negative for congestion, ear disc harge, ear pain and sore throat. Eyes: Negative for blurred vision and double vision. Respiratory: Negative for cough, shortness of breath and wheezing. Cardiovascular: Positive for leg swelling. Negative for chest pain, palpitations, orthopnea and claudication. Gastrointestinal: Positive for heartburn. Negative for nausea, vomiting, abdominal pain, di arrhea, constipation, blood in stool and melena. Genitourinary: Positive for frequency. Negative for dysuria, urgency, hematuria and flank p ain. Musculoskeletal: Positive for joint pain. Negative for back pain, falls, myalgias and neck pain. Skin: Negative for itching and rash. Neurological: Negative for dizziness, tingling, tremors, seizures, loss of consciousness, w eakness and headaches. Endo/Heme/Allergies: Positive for environmental allergies and polydipsia. Bruises/bleeds ea sily. Psychiatric/Behavioral: Negative for memory loss. The patient is not nervous/anxious and do es not have insomnia. OBJECTIVE: PHYSICAL EXAM BP 128/60 | Pulse 62 | Resp 16 | Ht 1.626 m (5' 4") | Wt 73.301 kg (161 lb 9.6 oz) | BMI 27 .72 kg/m2 Physical Exam Constitutional: She appears well-developed and well-nourished. No distress. Female individual without acute distress. Neck: Normal carotid pulses, no hepatojugular reflux and no JVD present. Carotid bruit is n ot present. Cardiovascular: Normal rate, regular rhythm, S1 normal, S2 normal, normal heart sounds, int act distal pulses and normal pulses. PMI is not displaced. Exam reveals no gallop, no S3, no S4 and no friction rub. No murmur heard. Pulses: Carotid pulses are 2+ on the right side, and 2+ on the left side. Dorsalis pedis pulses are 2+ on the right side, and 2+ on the left side. Pulmonary/Chest: Effort normal and breath sounds normal. No accessory muscle usage. No resp iratory distress. She has no wheezes. She has no rhonchi. She has no rales. Abdominal: Normal appearance, normal aorta and bowel sounds are normal. She exhibits no abd ominal bruit. There is no hepatosplenomegaly. There is no tenderness. Musculoskeletal: She exhibits no edema. Neurological: She is alert. Gait normal. Skin: Skin is warm and dry. Psychiatric: She has a normal mood and affect. Her mood appears not anxious. She does not e xhibit a depressed mood. ECG: sinus rhythm, nonspecific ST-T abnormalities. LAB RESULTS: LIPID Lab Results Component Value Date CHOL 142* 03/21/2014 TRIG 146 03/21/2014 HDL 56 03/21/2014 LDL 57 03/21/2014 CHOLHDL 2.5 03/21/2014 CHEMISTRY Lab Results Component Value Date GLU 122* 03/21/2014 NA 142 03/21/2014 K 3.6 03/21/2014 CL 106 03/21/2014 CO2 30 03/21/2014 CALCIUM 9.9 03/21/2014 ALKPHOS 54 03/21/2014 AST 21 03/21/2014 ALT 19 03/21/2014 BILITOT 0.9 03/21/2014 CREA 1.15 03/21/2014 BUN 24* 03/21/2014 EGFR 40* 02/26/2013 HEMATOLOGY Lab Results Component Value Date WBC 12.2* 03/21/2014 HGB 14.3 03/21/2014 HCT 42.1 03/21/2014 PLT 200 03/21/2014 I reviewed records from Francois Capone M.D. for office visit on 12/28/13 . ASSESSMENT: 1. Extensive history of coronary artery disease: A. Status post an anterior wall myocardial infarction complicated by VSD, status post VSD repair in 1994. B. History of an inferior wall myocardial infarction status post CABG x3 in 1996. C. An exercise myoview stress test in 2002 revealed a medium-sized scar of the anterosept al region. LVEF by gated SPECT was 56%. D. Today , patient is doing well from cardiac standpoint. Patient is asymptomatic but not physically active due to the left ankle injury/pain. There is no signs and symptoms of over t congestive heart failure. Patient is in a class I of [place] [employer] functional class. Physical exam shows 1+ edema to her left foot and ankle from her old fractured ankle . 2. Hyperlipidemia: A. She is on Simvastatin. B. Lab Results Component Value Date CHOL 142* 03/21/2014 TRIG 146 03/21/2014 HDL 56 03/21/2014 LDL 57 03/21/2014 CHOLHDL 2.5 03/21/2014 3. Hypertension: A. Today blood pressure is well controlled. 4. Diabetes. 5. Obesity 6. Inactivity PLAN: 1. I recommend a therapeutic lifestyle change including water aerobic or stationary bicyc le 30 most days of the week , choosing healthy choices of diet and weight reduction. 2. Today, patient is doing well from cardiac standpoint. I will continue with current medi jered regimen. 3. followup in one year. Electronically signed by: Stephenie Paul MD [facility] 03/21/2014 Portions of this chart may have been created with [place] [employer] voice recognition software. Occasi onal wrong-word or sound-alike substitutions may have occurred due to the inherent greene itations of voice recognition software. Please read the chart carefully and recognize, using context, where these substitutions have occurred. documented in this encounter Procedure Notes FAUSTINA MORALES - 03/21/2014 12:00 AM PSTAssociated Order(s): ECG - EXTERNAL SCANElectroni mariza signed by Gabriella Barker at 03/25/2014 2:42 PM PSTdocumented in this encounter Plan of Treatment +--------+---------+ + + + | Date | Type | Specialty | Care Team | Description | +--------+---------+ + + + | 12/06/ | Office | Cardiology | Stephenie Paul, | | | 2019 | Visit | | [address] | | | | | | [place], | | | | | | [place] [address] | | | | | | [phone] | | | | | | | | +--------+---------+ + + + + +------+--------+ + + | Name | Type | Priori | Associated Diagnoses | Order Schedule | | | | ty | | | + +------+--------+ + + | ECG 12 lead | ECG | Routin | CAD (coronary | Ordered: 03/21/2014 | | | | e | artery disease) | | | | | | Essential | | | | | | hypertension | | + +------+--------+ + + documented as of this encounter Procedures + +--------+ + + + | Procedure Name | Priori | Date/Time | Associated Diagnosis | Comments | | | ty | | | | + +--------+ + + + | ECG - EXTERNAL SCAN | | 03/21/2014 | | | | | | 12:00 AM | | | | | | PST | | | + +--------+ + + + documented in this encounter Visit Diagnoses + + | Diagnosis | + + | CAD (coronary artery disease) - Primary Coronary atherosclerosis of unspecified type | | of vessel, [place] or graft | + + | Essential hypertension Unspecified essential hypertension | + + documented in this encounter
--- OUTSIDE RECORDS SUMMARY | ~2019-09-12 | XMS | Encounter Summary ---
Demographics + + + | Address | [address] | | | [place] [address] | + + + | Home Phone | | + + + | Preferred Language | Unknown | + + + | Marital Status | | + + + | Alevism Affiliation | Unknown | + + + | Race | Unknown | + + + | Ethnic Group | Unknown | + + + Author + + + | Author | [facility] | | | and [place] | + + + | Organization | [facility] | | | and [place] | + + + | Address | Unknown | + + + | Phone | Unavailable | + + + Support + + + + + | Name | Relationship | Address | Phone | + + + + + | Sigrid Lennon | ECON | [address] | | | | | [place] [address] | | + + + + + | Valentín Saleh | ECON | [address] | | | | | [place] [address] | | + + + + + | Roberto Carlos Lennon | LEVI | Unknown | | + + + + + Care Team Providers + +------+ + | Care Community Administrator Name | Role | Phone | + [...] + + | 11/16/ | Office | [facility] | Francois Pascal, | Type 2 diabetes | | 2016 | Visit | MEDICINE [facility] | [address] | mellitus with stage | | | | [address] [place], | [address] [place], | 3 chronic kidney | | | | [place] [address] | [place] [address] | disease (HCC) | | | | [phone] | [phone] | (Primary Dx); | | | | [...] Lennon is a 84 y.o. female. HPI Chronic L ankle OA, Followed by Dr Valero with recent injection, There was miminal improvement , She would like to consider a joint replacement. She is now seeing Dr Ochoa, [facility]. DM2, with neuropathy, she was off her diet a little. She is back on this,. She has almo st eliminated potatoes, bread, rice, pasta. She does not eat much desserts. Lantus 120 QHS , novolog 35, lantus. She does not want to see the medical educator. 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 Hx of Myocardial infarction (1994&1996) Hypertension x Hyperlipidemia Vitamin D Deficiency Gout Osteoporosis Verebral Compression Fractures Glossitis Past Surgical History: 1996 Grafting for Coronary Artery Bypass x 3 vessels and VSD Patch Cholecystectomy 1986 Previous Inferior Vena Cava Filter OU Cateract Surgery 2007 Hiatal Hernia Repair 1985 (L) Breast Biopsy 1974 ORIF Left Ankle Unstable Trimalleolar Fracture Dislocation 03/24/2009 Family History: Mother 71 Myocardial Infarction, possible VSD Father 50 Pneumonia Family Hx of Upshur's chorea Sister and 2 brothers: CAD, Upshur's Disease to [place] - with 2 Healthy Children No kidney disease in family. Social History: Born in [facility] for [facility] years. and Remarried 2 [...] [place], | | | | | | [place] [address] | | | | | | [phone] | | | | | | | | +--------+---------+ + + + documented as of this encounter Results Hemoglobin A1C (02/17/2016 9:00 AM PST) + +---------+ + + + [...] + + | MARISELA DIAZ. | [address] | [place] | [phone] | | [facility] | | [address] | | | - LABORATORY | | [...]
--- OUTSIDE RECORDS SUMMARY | ~2019-09-12 | XMS | Encounter Summary ---
Demographics + + + | Address | [address] | | | [place] [address] | + + + | Home Phone [...] Author | [facility] | | | and [place] | + + + | Organization | [facility] [...] | | | | | [place] [address] | | + + + + + | Valentín Saleh | ECON | [address] | | | | | [place] [address] | | + + + + + | Roberto Carlos Lennon | LEVI | Unknown | | + + + + + Care Team Providers + +------+ + | Care Undercar Specialist Name | Role | Phone | [...] + | 01/12/ | Refill | [facility] | Francois Pascal, | Medication Refill | | 2013 | | [facility] | [address] | | | | | [address] | [address] [place], | | | | | [place] | [place] [address] | | | | | [address] | [phone] | | | | | [phone] | | | +--------+--------+ + + + [...] | | | | | | [place] [address] | | | | | | [phone] | | | | | | | | +--------+---------+ + + + documented as of this encounter Visit Diagnoses Not on filedocumented in this encounter"
--- OUTSIDE RECORDS SUMMARY | ~2019-09-12 | XMS | Encounter Summary ---
Demographics + + + | Address | [address] | | | [place] [address] | + + + | Home Phone [...] + | Author | [facility] | | | and [place] | + + + | Organization | [facility] | [...] | | | | | [place] [address] | | + + + + + | Valentín Saleh | ECON | [address] | | | | | [place] [address] | | + + + + + | Roberto Carlos Lennon | LEVI | Unknown | | + + + + + Care Team Providers + +------+ + | Care Carpenter Helper [employer] Name | Role | Phone | + +------+ + | Francois Pascal MD | PCP | | + +------+ + Encounter Details +--------+ + + + + | Date | Type | Department | Care Team | Description | +--------+ + + + + | 08/16/ | Abstract | [facility] [place] | [place], | | | 2012 | | NEPHROLOGY [address] | [address] | | | | | [facility] [address] | [address] [facility] | | | | | [place], [place] | [address] [place] | | | | | [address] | [address] | | | | | [phone] | | | +--------+ + + + [...] [place], | | | | | | [place] [address] | | | | | | [phone] | | | | | | | | +--------+---------+ + + + documented as of this encounter Visit Diagnoses Not on filedocumented in this encounter"
--- OUTSIDE RECORDS SUMMARY | ~2019-09-12 | XMS | Encounter Summary ---
Demographics + + + | Address | [address] | | | [place] [address] | + + + | Home Phone [...] + | Author | [facility] | | | and [place] | + + + | Organization | [facility] | | [...] | | | | | [place] [address] | | + + + + + | Valentín Saleh | ECON | [address] | | | | | [place] [address] | | + + + + + | Roberto Carlos Lennon | LEVI | Unknown | | + + + + + Care Team Providers + +------+ + | Care Mortar Worker Name | Role | Phone | [...] Description | +--------+---------+ + + + | 05/31/ | Office | [facility] | Francois Pascal, | Dementia due to | | 2018 | Visit | MEDICINE [facility] | [address] | Alzheimer's disease | | | | [address] | [address] [place], | (Primary Dx); | | | | [place] | [place] [address] | Diabetes mellitus | | | | [address] | [phone] | due to underlying | | | | [phone] | | condition with | | | | | | hyperglycemia, with | | | | | | long-term current | | | | | | use of insulin | | | | | | (HCC); Atrial | | | | | | fibrillation, | | | | | | unspecified type | | | | | | (HCC); CHRONIC | | | | | | KIDNEY DISEASE STAGE | | | | | | III (MODERATE); | | | | | | Primary | | | | | | osteoarthritis of | | | | | | left ankle; | | | | | | Hypertension, renal | | | | | | disease, stage 1-4 | | | | | | or unspecified | | | | | | chronic kidney | | | | | | disease | +--------+---------+ + + + Social History [...] + + + | Blood Pressure | 114/68 | 05/31/2018 11:21 AM | | | | | PDT | | + + + + + | Pulse | 65 | 05/31/2018 11:21 AM | | | | | PDT | | + + + + + | Temperature | 36.1 C (97 F) | 05/31/2018 11:21 AM | | | | | PDT | | + + + + + | Respiratory Rate | 16 | 05/31/2018 11:21 AM | | | | | PDT | | + + + + + | Oxygen Saturation | 97% | 05/31/2018 11:21 AM | | | | | PDT | | + + + + + | Inhaled Oxygen | - | - | | | Concentration | | | | + + + + + | Weight | 63.5 kg (140 lb) | 05/31/2018 11:21 AM | | | | | PDT | | + + + + + | Height | 167.6 cm (5' 6") | 05/31/2018 11:21 AM | | | | | PDT | | + + + + + | Body Mass Index | 22.6 | 05/31/2018 11:21 AM | | | | | PDT [...] this encounter Progress Francois Borden MD - 05/31/2018 11:15 AM PDTFormatting of this note might be different f rom the original. Subjective: Patient ID: Alyson Lennon is a 87 y.o. female. HPI Information below has been pulled from previous visit, reviewed and updated as appropriate. Cough fever body aches and vomitting an week ago that has resolved, She is no longer cough ing and throwing up. HTN, CAD, Afib on xarelto, Followed by Cardiology, No recent CP or SOB. There is Bila teral leg swelling that is mild and unchanged. CKD, Followed by Kemar Mcclelland. Diabetes, She is on the lantus and novolog. She has no complaint of foot sore, There is no complaint of P, P or P. Dementia, notes she sleeps a lot. ST memory seems to be "gone" She has occasion al agitation but not yet drastic. Left ankle OA, Confined to wheelchair, no current complaint of uncontrolled pain here. She is no edentulous. She is on pureed diet. 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 with Hx of Myocardial infarction (1994&1996) Hypertension x Hyperlipidemia Vitamin D Deficiency Gout Osteoporosis Verebral Compression Fractures Glossitis Past Surgical History: 1996 Grafting for Coronary Artery Bypass x 3 vessels and VSD Patch Cholecystectomy 1986 Previous Inferior Vena Cava Filter OU Cateract Surgery 2006 Hiatal Hernia Repair 1984 (L) Breast Biopsy 1974 ORIF Right hip 07/21 ORIF Left Ankle Unstable Trimalleolar Fracture Dislocation 03/24/2009 Family History: Mother 71 Myocardial Infarction, possible VSD Father 50 Pneumonia Family Hx of Eugene's chorea Sister and 2 brothers: CAD, Eugene's Disease to [place] - with 2 Healthy Children No kidney disease in family. Social History: Born in [facility] for 46 years. and Remarried 2 sons local. Patient has never smoked. Alcohol Use - no Exercise: None Caffeine: Decaf only Living Situation: Lives with spouse Patient's medications, allergies, past medical, surgical, social and family histories were obtained and reviewed as appropriate. ROS Constitutional: no fever, No appetite change, no [...] no Depression, no anxiety,no sleep problems Objective: BP 114/68 | Pulse 65 | Temp 36.1 C (97 F) (Temporal) | Resp 16 | Ht 1.676 m (5' 6") | Wt 63.5 kg (140 lb) | SpO2 97% | BMI 22.60 kg/m Physical Exam NAD sitting in wheelchair. Heent, WNL, No carotid bruit Chest CTAB Heart RR&R /c M Abd S,NT,ND,BS+ Ext, no CCor E Neuro Non-focal Lymph, no cervical, axillary, inguinal adenopathy Musculoskeletal, no gross deformity or loss or range of motion Skin, no gross lesions Assessment: 1. Dementia due to Alzheimer's disease 2. Diabetes mellitus due to underlying condition with hyperglycemia, with long-term current use of insulin (HCC) 3. Atrial fibrillation, unspecified type (HCC) 4. CHRONIC KIDNEY DISEASE STAGE III (MODERATE) 5. Primary osteoarthritis of left ankle 6. Hypertension, renal disease, stage 1-4 or unspecified chronic kidney disease Plan: She looks great post tooth extractions, The inflammatory pattern on her facial skin has r esolved. Her labs are due. She is however overall much improved and her dementia appears stable. RTC 3 months with labs prior. Otherwise continue current medical regimen. documented in this encounter Plan of Treatment +--------+---------+ + + + | Date | Type | Specialty | Care Team | Description | +--------+---------+ + + + | 12/06/ | Office | Cardiology | MakStephenie velasco, | | | 2019 | Visit | | [address] | | | | | | 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
--- OUTSIDE RECORDS SUMMARY | ~2019-09-12 | XMS | Encounter Summary ---
Demographics + + + | Address | [address] | | | [place] [address] | + + + | Home Phone | | + + + | Preferred Language | Unknown | + + + | Marital Status | | + + + | Lutheran Affiliation | Unknown | + + + | Race | Unknown | + + + | Ethnic Group | Unknown | + + + Author + + + | Author | [facility] | | | and [place] | + + + | Organization | [facility] | | [...] | | | | | [place] [address] | | + + + + + | Valentín Saleh | ECON | [address] | | | | | [place] [address] | | + + + + + | Roberto Carlos Lennon | LEVI | Unknown | | + + + + + Care Team Providers + +------+ + | Care Medical Records Secretary Name | Role | Phone | + +------+ + | Francois Pascal MD | PCP | | + +------+ + Reason for Visit +--------+ + | Reason | Comments | +--------+ + | DME | | +--------+ + Encounter Details +--------+---------+ + + + | Date | Type | Department | Care Team | Description | +--------+---------+ + + + | 10/10/ | Office | [facility] | Francois Pascal, | Essential | | 2019 | Visit | [facility] [place] | [address] | hypertension | | | | [address] | [address] [place], | (Primary Dx); | | | | [place] | [place] [address] | Dementia due to | | | | [address] | [phone] | Alzheimer's disease; | | | | [phone] | | CHRONIC KIDNEY | | | | | | DISEASE STAGE III | | | | | | (MODERATE); | | | | | | Localized | | | | | | osteoarthritis of | | | | | | ankle, left; | | | | | | Diabetes mellitus | | | | | | due to underlying | | | | | | condition with stage | | | | | | 3 chronic kidney | | | | | | disease, with | | | | | | long-term current | | | | | | use of insulin (HCC) | +--------+---------+ + + + Social [...] + + + | Blood Pressure | 116/54 | 10/10/2018 2:40 PM | | | | | PDT | | + + + + + | Pulse | 52 | 10/10/2018 2:40 PM | | | | | PDT | | + + + + + | Temperature | 36.4 C (97.5 F) | 10/10/2018 2:40 PM | | | | | PDT | | + + + + + | Respiratory Rate | 16 | 10/10/2018 2:40 PM | | | | | PDT | | + + + + + | Oxygen Saturation | 98% | 10/10/2018 2:40 PM | | | | | PDT | | + + + + + | Inhaled Oxygen | - | - | | | Concentration | | | | + + + + + | Weight | - | - | | + + + + + | Height | - | - | | + + + + + | Body Mass Index | - | - | | + [...] encounter Progress Notes Francois Pascal MD - 10/10/2018 2:45 PM PDTFormatting of this note might be different f rom the original. Subjective: Patient ID: Alyson Lennon is a 87 y.o. female. HPI Information below has been pulled from previous visit, reviewed and updated as appropriate. Alyson is moving from [facility] to [facility], [facility] HTN, CAD, Afib on xarelto, Followed by Cardiology, No recent CP or SOB. There is Bila teral leg swelling that is mild and unchanged. CKD, Used to be followed by Nephrology but "she hasn't been there in a long time" Diabetes, She is on the lantus and novolog. She has no complaint of foot sore, There is no complaint of P, P or P. Dementia, [place] type, notes she sleeps a lot. ST memory seems to be "gone" She hope s occasional agitation but not yet drastic. Her reports this is unchanged. Left ankle OA, This was fused a few years ago. Confined to wheelchair, no current com plaint of uncontrolled pain here. She is now edentulous. She is on pureed diet. Her states this really improved th ings from her and her mouth no longer bleeds or bothers her. Past Medical History: Type 2 DM with [...] VSD Father 50 Pneumonia Family Hx of Mus[place]'s chorea Sister and 2 brothers: CAD, [place]'s Disease to [place] - with 2 Healthy Children No kidney disease in family. Social History: Born in [facility] for 46 years. and Remarried 2 [...] Depression, no anxiety,no sleep problems Objective: BP 116/54 | Pulse 52 | Temp 36.4 C (97.5 F) (Temporal) | Resp 16 | SpO2 98% Physical Exam Heent, WNL, No carotid bruit Chest CTAB Heart RR&R /s M Abd S,NT,ND,BS+ Ext, no CCor E Neuro Non-focal Lymph, no cervical, axillary, inguinal adenopathy Musculoskeletal, no gross deformity or loss or range of motion Skin, no gross lesions Assessment: 1. Essential hypertension CBC with Differential Comprehensive Metabolic Panel Urinalysis with Microscopic if Indicated TSH 2. Dementia due to Alzheimer's disease CBC with Differential Comprehensive Metabolic Panel Urinalysis with Microscopic if Indicated TSH 3. CHRONIC KIDNEY DISEASE STAGE III (MODERATE) 4. Localized osteoarthritis of ankle, left Plan: Alyson has slowly progressive [place] dementia. There is no report of recent agitation, She is moving and the one thing her facility should be aware of is her severe left ankle OA/prior fusion,. This certainly limits her mobility and stability. We will obtain labs as it has b een a while. Her generalized facial inflammation has certainly improved post dentition rem oval. RTC 3 months. Otherwise continue current medical regimen. A hospital bed and whee lchair are medically indicated to assist with movement and proper repositioning to prevent d ecubiti. Hold insulin and call MD for glucose less than 60. Patient has mobility limitations that significallly impairs her ability to participate in o ne or more mobility related activities of daily living in the home. Patients mobility limita tions cannot sufficiently be resolved by the use of an appropriately fitted cane or walker. The use of manual wheelchair will significantly improve the patients ability to participate in MRADL's and the patient will use it on a regular basis in the home.The patient expresses willingness to use the manual wheelchair in the home. The patient has sufficient upper extre mity function and other physical and mental capabilities needed to safely self-propel the ma nual wheelchair that is provided in the home during a typical day. pt requires frequent repositioning of head and legs to alleviate pain caused by DEMYELINATI NG DISEASE, CENTRAL NERVOUS SYSTEM , osteoporosis and arthritis; decubitis prevention from s everal hours at a time in bed. Pt has difficulty repositioning herself Pt reports occasional pain/discomfort from one position. This should help alleviate pain without having to resort on opioids which are not ideal due to alzhemer's. Pt should be repositioned while in bed ev veronica 2 hours to prevent skin break down and to reduce pain/discomfort. documented in this encounter Plan of Treatment +--------+---------+ + + + | Date | Type | Specialty | Care Team | Description | +--------+---------+ + + + | 12/06/ | Office | Cardiology | Stephenie Paul, | | | 2019 | Visit | | MD Bob Shee[address] | | | | | | [place], | | | | | | [place] [address] | | | | | | [phone] | | | | | | | | +--------+---------+ + + + + +------+--------+ + + | Name | Type | Priori | Associated Diagnoses | Order Schedule | | | | ty | | | + +------+--------+ + + | Urinalysis with | Lab | Routin | Essential | 1 Occurrences | | Microscopic if | | e | hypertension | starting 10/10/2018 | | Indicated | | | Dementia due to | until 10/10/2019 | | | | | Alzheimer's disease | | + +------+--------+ + + documented as of this encounter Results TSH (10/10/2018 3:20 PM PDT) + + + + + + | Component | Value | Ref Range | Performed | Pathologist | | | | | At | Signature | + + + + + + | TSH | 3.75 (H) | 0.36 - 3.74 | [facility] | | | | | uIU/mL | [facility] | | | | [facility] | | [facility] | | | | | | LABORATORY | | + + + + + + + + | Specimen | + + | Blood | + + + + + + + | Performing | Address | City/State/Zipcode | Phone Number | | Organization | | | | + + + + + | [facility] | [address] | [place] | [phone] | | [facility] | | [address] | | | [facility] | | | | + + + + + documented in this encounter Visit Diagnoses + + | Diagnosis | + + | Essential hypertension - Primary Unspecified essential hypertension | + + | 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) | + + | CHRONIC KIDNEY DISEASE STAGE III (MODERATE) Chronic kidney disease, Stage III | | (moderate) | + + | Localized osteoarthritis of ankle, left | + + | 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, | | with long-term current use of insulin (HCC) | + + documented in this encounter
--- OUTSIDE RECORDS SUMMARY | ~2019-09-12 | XMS | Encounter Summary ---
Demographics + + + | Address | [address] | | | [place] [address] | + + + | Home Phone | | + + + | Preferred Language | Unknown | + + + | Marital Status | | + + + | Sabianism Affiliation | Unknown | + + + | Race | Unknown | + + + | Ethnic Group | Unknown | + + + Author + + + | Author | [facility] | | | and [place] | + + + | Organization | [facility] | | [...] | | | | | [place] [address] | | + + + + + | Valentín Saleh | ECON | [address] | | | | | [place] [address] | | + + + + + | Roberto Carlos Lennon | LEVI | Unknown | | + + + + + Care Team Providers + +------+ + | Care Career Specialist Name | Role | Phone | + +------+ + | No, Physician | PCP | Unavailable | + +------+ + Encounter Details +--------+ + + + + | Date | Type | Department | Care Team | Description | +--------+ + + + + | 04/06/ | Lab | [facility] | [place], | Chronic kidney | | 2018 | Requisition | [facility] | [address] | disease, stage III | | | | [address] [place] | [address] [place] | (moderate) | | | | [place] | [address] [place] | | | | | [address] | [id number] | | | | | [phone] | | | +--------+ + + + [...] [place], | | | | | | [place] [address] | | | | | | [phone] | | | | | | | | +--------+---------+ + + + documented as of this encounter Procedures + +--------+ + + + | Procedure Name | Priori | Date/Time | Associated Diagnosis | Comments | | | ty | | | | + +--------+ + + + | PROTEIN/CREATININE | Routin | 04/06/2017 | Chronic kidney | Results for this | | RATIO, URINE | e | 3:40 PM | disease, stage III | procedure are in the | | | | PST | (moderate) | results section. | + +--------+ + + + | MICROALBUMIN/CREATIN | Routin | 04/06/2017 | Chronic kidney | Results for this | | INE RATIO, URINE | e | 3:40 PM | disease, stage III | procedure are in the | | TEST | | PST | (moderate) | results section. | + +--------+ + + + documented in this encounter Results Microalbumin/Creatinine Ratio, Urine (04/06/2017 3:40 PM PST) + + + + + + | Component | Value | Ref Range | Performed | Pathologist | | | | | At | Signature | + + + + + + | Microalbumi | 60.8 (H)Comment: Notice: | <1.8 mg/dL | [facility] | | | n, Urine, | New unit (mg/dl) and | | [facility] | | | [facility] | reference range as of | | MEDICAL | | | | May 12, 2013. | | CENTER - | | | | | | LABORATORY | | + + + + + + | Creatinine, | 86 | mg/dL | [facility] | | | Urine, | | | [facility] | | | [facility] | | | MEDICAL | | | | | | CENTER - | | | | | | LABORATORY | | + + + + + + | Microalbumi | 707 (H) | <30 mg/g | [facility] | | [...] + | [facility] | [address] | [place], [place] | [phone] | | [facility] | | [address] | | | - LABORATORY | | | | + + + + + Protein/Creatinine Ratio, Urine (04/06/2017 3:40 PM PST) + + + + + + | Component | Value | Ref Range | Performed | Pathologist | | | | | At | Signature | + + + + + + | Protein, | 83 (H) | <6 mg/dL | [facility] | | | Urine | | | [facility] | | | | | | MEDICAL | | | | | | CENTER - | | | | | | LABORATORY | | + + + + + + | Creatinine, | 86 | mg/dL | [facility] | | | Urine, | | | [facility] | | | Random | | | MEDICAL | | | | | | CENTER - | | | | | | LABORATORY | | + + + + + + | PRO/CREA | 0.97 (H) | <0.20 mg/mg | [facility] | [...] ST. | [address] | [place], [place] | [phone] | | [facility] | | [address] | | | - LABORATORY | | | | + + + + + documented in this encounter Visit Diagnoses + + | Diagnosis | + + | Chronic kidney disease, stage III (moderate) (HCC) Chronic kidney disease, Stage III | | (moderate) | + + documented in this encounter"
--- OUTSIDE RECORDS SUMMARY | ~2019-09-12 | XMS | Encounter Summary ---
Demographics + + + | Address | [address] | | | [place] [address] | + + + | Home Phone [...] + | Author | [facility] | | | and [place] | + + + | Organization | [facility] | | | and [...] | | | | | [place] [address] | | + + + + + | Valentín Saleh | ECON | [address] | | | | | [place] [address] | | + + + + + | Roberto Carlos Lennon | LEVI | Unknown | | + + + + + Care Team Providers + +------+ + | Care Electrical & Instrumentation Supervisor Name | Role | Phone | + +------+ + | Francois Pascal MD | PCP | | + +------+ + Encounter Details +--------+ + + + + | Date | Type | Department | Care Team | Description | +--------+ + + + + | 01/19/ | Hospital | [facility] | [place], | CHRONIC KIDNEY | | 2016 | Encounter | [facility] | [address] | DISEASE STAGE III | | | | [address] | [address] [facility] | (MODERATE) | | | | [place] | [address] [place] | | | | | [address] | [address] | | | | | [phone] | | | +--------+ + + + [...] | | 0 | | | | Tlwparx-Bgzgpnhpq-Ax | mouth Daily. | | | | [...] 1 tablet by | | 0 | 01/01/20 | | | HYDROcodone-acetamin | mouth as needed. | | | 16 | 7 | | ophen (NORCO) 5-325 | | | | | | | mg [...] + + | NOVOLOG 100 | INJECT 35 UNITS | 20 mL | 3 | 01/13/20 | | | UNIT/ML injection | UNDER THE SKIN 3 | | | 16 | 7 | | | TIMES DAILY PRIOR TO | | | | | | | MEALS | | | | | + + + +---------+ + + | | Take 1 tablet by | | 0 | 01/06/20 | | | sulfamethoxazole-tri | mouth 2 times daily. | | | 16 | 6 | | methoprim | | | | | | | (BACTRIM,SEPTRA) | | | | | | | 400-80 MG per tablet | | | | | [...] | | | | | | [place] [address] | | | | | | [phone] | | | | | | | | +--------+---------+ + + + documented as of this encounter Procedures + +--------+ + + + | Procedure Name | Priori | Date/Time | Associated Diagnosis | Comments | | | ty | | | | + +--------+ + + + | PROTEIN/CREATININE | Routin | 01/20/2016 | CHRONIC KIDNEY | Results for this | | RATIO, URINE | e | 10:21 AM | DISEASE STAGE III | procedure are in the | | | | PST | (MODERATE) | results section. | + +--------+ + + + | PARATHYROID HORMONE, | Routin | 01/20/2016 | CHRONIC KIDNEY | Results for this | | INTACT | e | 10:01 AM | DISEASE STAGE III | procedure are in the | | | | PST | (MODERATE) | results section. | + +--------+ + + + | RENAL FUNCTION PANEL | Routin | 01/20/2016 | CHRONIC KIDNEY | Results for this | | | e | 10:01 AM | DISEASE STAGE III | procedure are in the | | | | PST | (MODERATE) | results section. | + +--------+ + + + documented in this encounter Results Protein/Creatinine Ratio, Urine (01/20/2016 10:21 AM PST) + +--------+ + + + | Component | Value | Ref Range | Performed | Pathologist | | | | | At | Signature | + +--------+ + + + | Protein, | 10 (H) | <6 mg/dL | [facility] | | | Urine | | | [facility] | | | | | | MEDICAL | | | | | | CENTER - | | | | | | LABORATORY | | + +--------+ + + + | Creatinine, | 66 | mg/dL | [facility] | | | Urine, | | | [facility] | | | [facility] | | | MEDICAL | | | | | | CENTER - | | | | | | LABORATORY | | + +--------+ + + + | PRO/CREA | 0.15 | <0.20 mg/mg | [facility] | | [...] + | [facility] | [address] | [place] | [phone] | | [facility] | | [address] | | | - LABORATORY | | | | + + + + + Parathyroid Hormone, Intact (01/20/2016 10:01 AM PST) + +---------+ + + + | Component | Value | Ref Range | Performed | Pathologist | | | | | At | Signature | + +---------+ + + + | PTH Intact | 111 (H) | 12 - 88 pg/mL | [facility] | | | | | | [facility] [address] | [place] | [phone] | | [facility] | | [address] | | | - LABORATORY | | | | + + + + + Renal Function Panel (01/20/2016 10:01 AM PST) + + + + + + | Component | Value | Ref Range | Performed | Pathologist | | | | | At | Signature | + + + + + + | Na | 143 [...] CO2 | 31 | 24 - 31 mmol/L | [facility] [...] + + + + | Glucose | 95 | 70 - 109 mg/dL | [facility] | | | | | | [facility] | | | | | | MEDICAL | | | | | | CENTER - | | | | | | LABORATORY | | + + + + + + | BUN | 19 (H) | 7 - 18 mg/dL | [facility] | | | | | | [facility] | | | | | | MEDICAL | | | | | | CENTER - | | | | | | LABORATORY | | + + + + + + | Creatinine | 1.39 (H) | 0.60 - 1.30 | [facility] | | | | | mg/dL | [facility] | | | | | | MEDICAL | | | | | | CENTER - | | | | | | LABORATORY | | + + + + + + | eGFR if not | 36 (L) | >=60 | [facility] | | | | | mL/min/1.73m2 | [facility] | | | [facility] | | | MEDICAL | | | [...] + + + + | Phosphorus | 4.2 | 2.5 - 4.6 mg/dL | [facility] | | | | | | [facility] | | | | | | MEDICAL | | | | | | CENTER - | | | | | | LABORATORY | | + + + + + + | BUN/Creatin | 13.7 | | [facility] | | | ine [...] ST. | [address] | [place] | [phone] | | [facility] | | [address] | | | - LABORATORY | | | | + + + + + documented in this encounter Visit Diagnoses + + | Diagnosis | + + | CHRONIC KIDNEY DISEASE STAGE III (MODERATE) Chronic kidney disease, Stage III | | (moderate) | + + documented in this encounter"
--- OUTSIDE RECORDS SUMMARY | ~2019-09-12 | XMS | Encounter Summary ---
Demographics + + + | Address | [address] | | | [place] [address] | + + + | Home Phone [...] | Author | [facility] | | | and [place] | + + + | Organization | [facility] | | | and [place] | + + + | Address | Unknown | + + + | Phone | Unavailable | + + + Support + + + + + | Name | Relationship | Address | Phone | + + + + + | Sigrid Lennon | ECON | [address] | | | | | [place] [address] | | + + + + + | Valentín Saleh | ECON | [address] | | | | | [place] [address] | | + + + + + | Roberto Carlos Lennon | LEVI | Unknown | | + + + + + Care Team Providers + +------+ + | Care Lastex Operator Name | Role | Phone | + +------+ + | Francois Pascal MD | PCP | | + +------+ + Encounter Details +--------+---------+ + + + | Date | Type | Department | Care Team | Description | +--------+---------+ + + + | 10/31/ | Office | [facility] | Francois Pascal, | Diabetes (HCC) | | 2014 | Visit | [facility] | [address] | (Primary Dx) | | | | EDUCATION [address] | [address], | | | | | [place], | [place] [address] | | | | | [place] [address] | [phone] | | | | | [phone] | | | | | | | Chrissy Muhammad, | | | | | | RN Need updated | | | | | | address | | +--------+---------+ + + + Social [...] + documented as of this encounter Progress Chrissy Villarreal RN - 10/31/2013 2:48 PM Darshan forgot to bring a logbook or her gluco meter today and has somewhat of a difficult time recalling her blood glucose levels. kelli rep orts that her FBS is 70-90's concictently. She had a symptomatic episode of hypoglycemia wit h a 65 reading. She ate a meal but I advised her to take 15-16gm of carbs before eating and retest in 15-20 minutes to be certain her glucose is going up. Simple picture handout review ed and given to pt fo symptoms and treatment of hypoglycemia. She reports that she examens her feet daily. After her last appointment she used her exercise bike every day for one week but then quit because she felt so poorly with an inflamed mouth. She agrees to begin again. She reports that she consistently needs to add Novolog to her regular dose three times a da y For glucose devels 180's-200's. I have not heard from Dr. Pascal about adding a bit more Novolog to cover the food she is about to consume. I will see her following her next appoin tment with him. She denies difficulty coping or stress. We reviewed the food label. Her recalled diet is quite low fiber. She is encouraged to att end the group session in Nov. And is advised to call me for questions. Good understanding of 30 min of education. Renews goals today. documented in this encounter Plan of Treatment +--------+---------+ + + + | Date | Type | Specialty | Care Team | Description | +--------+---------+ + + + | 12/06/ | Office | Cardiology | Stephenie Paul, | | | 2019 | Visit | | MD [address] [place] | | | | | | [place], | | | | | | [place] [address] | | | | | | [phone] | | | | | | | | +--------+---------+ + + + documented as of this encounter Visit Diagnoses + + | Diagnosis | + + | Diabetes (HCC) - Primary | + + documented in this encounter"
--- OUTSIDE RECORDS SUMMARY | ~2019-09-12 | XMS | Encounter Summary ---
Demographics + + + | Address | [address] | | | [place] [address] | + + + | Home Phone [...] Author | [facility] | | | and [place] | + + + | Organization | [facility] | | | and [place] | + + + | Address | Unknown | + + + | Phone | Unavailable | + + + Support + + + + + | Name | Relationship | Address | Phone | + + + + + | Sigrid Lennon | ECON | [address] | | | | | [place] [address] | | + + + + + | Valentín Saleh | ECON | [address] | | | | | [place] [address] | | + + + + + | Roberto Carlos Lennon | LEVI | [place] | | + + + + + Care Team Providers + +------+ + | Care Diesel Scoop Operator Name | Role | Phone | + +------+ + PCP | Unavailable | + +------+ + Encounter Details +--------+ + + + + | Date | Type | Department | Care Team | Description | +--------+ + + + + | 08/19/ | Hospital | [facility] | Roberto Carlos Tello, | | | 1993 | Encounter | MED CTR XRAY [address] | [address] [facility] | | | | | [address] [place] | [place] | | | | | [place] [address] | [address] | | | | | [phone] | | | +--------+ + + + [...] | | | | | | [place] [id number] | | | | | | [phone] | | | | | | | | +--------+---------+ + + + documented as of this encounter Visit Diagnoses Not on filedocumented in this encounter"
--- OUTSIDE RECORDS SUMMARY | ~2019-09-12 | XMS | Encounter Summary ---
Demographics + + + | Address | [address] | | | [place] [address] | + + + | Home Phone | | + + + | Preferred Language | Unknown | + + + | Marital Status | | + + + | Episcopal Affiliation | Unknown | + + + | Race | Unknown | + + + | Ethnic Group | Unknown | + + + Author + + + | Author | [facility] | | | and [place] | + + + | Organization | [facility] | | | and [place] | + + + | Address | Unknown | + + + | Phone | Unavailable | + + + Support + + + + + | Name | Relationship | Address | Phone | + + + + + | Sigrid Lennon | ECON | [address] | | | | | [place] [address] | | + + + + + | Valentín Saleh | ECON | [address] | | | | | [place] [address] | | + + + + + | Roberto Carlos Lennon | LEVI | Unknown | | + + + + + Care Team Providers + +------+ + | Care News Videographer Name | Role | Phone | + +------+ + | No, Physician | PCP | Unavailable | + +------+ + Encounter Details +--------+ + + + + | Date | Type | Department | Care Team | Description | +--------+ + + + + | 04/06/ | Lab | [facility] | [place], | Chronic kidney | | 2018 | Requisition | [facility] | [address] | disease, stage III | | | | [address] | [address] | (moderate); 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 | | | | | [employer] (current) | | | | | | drug therapy | | + +--------+ + + + | RENAL FUNCTION PANEL | Routin | 04/06/2017 | Chronic kidney | Results for this | | | e | 2:30 PM | disease, stage III | procedure are in the | | | | PST | (moderate) Other | results section. | | | | | group home (current) | | | | | | drug therapy | | + +--------+ + + + documented in this encounter Results Renal Function Panel (04/06/2017 2:30 PM PST) + +---------+ + + + | Component | Value | Ref Range | Performed | Pathologist | | | | | At | Signature | + +---------+ + + + | Na | 133 (L) | 136 - 149 | [facility] | | | | | mmol/L | [facility] | | | | | | [facility] | | | | | | [facility] - | | | | | | LABORATORY | | + +---------+ + + + | K | 4.2 | 3.5 - 5.1 | [facility] | | | | | mmol/L | [facility] | | | | | | [facility] | | | | | | C[facility] - | | | | | | LABORATORY | | + +---------+ + + + | Cl | 97 (L) | 98 - 109 mmol/L | [facility] | | | | | | [facility] | | | | | | [facility] | | | | | | [facility] - | | | | | | LABORATORY | | + +---------+ + + + | CO2 | 29 [...] +---------+ + + + | Glucose | 283 (H) | 70 - 109 mg/dL | [facility] | | | | | | [facility] | | | | | | [facility] | | | | | | CENTER - | | | | | | LABORATORY | | + +---------+ + + + | BUN | 25 (H) | 7 - 18 mg/dL | [facility] | | | | | | [facility] | | | | | | [facility] | | | | | | CENTER - | | | | | | LABORATORY | | + +---------+ + + + | Creatinine | 0.91 | 0.60 - 1.30 | [facility] | | | | | mg/dL | [facility] | | | | | | [facility]ICAL | | | | | | CENTER - | | | | | | LABORATORY | | + +---------+ + + + | eGFR if not | 59 (L) | >=60 | [facility] | | | | | mL/min/1.73m2 | [facility] | | | [facility] | | | [facility] | | | | | | CENTER - | | | | | | LABORATORY | | + +---------+ + + + | Calcium | 8.7 | 8.3 - 10.5 | [facility] | | | | | mg/dL | [facility] | | | | | | [facility] | | | | | | CENTER - | | | | | | LABORATORY | | + +---------+ + + + | Albumin | 3.0 (L) | 3.2 - 5.0 g/dL | [facility] | | | | | | [facility] | | | | | | [facility] | | | | | | [facility] - | | | | | | LABORATORY | | + +---------+ + + + | Phosphorus | 3.0 | 2.5 - 4.6 mg/dL | [facility] | | | | | | [facility] | | | | | | [facility] | | | | | | [facility]ENTER - | | | | | | LABORATORY | | + +---------+ + + + | BUN/Creatin | 27.5 | | [facility] | | | ine Ratio | | | [facility] | | [...] [facility] [facility] | [address] | [phone] | | [facility] | | [address] | | | - LABORATORY | | | | + + + + + CBC with Differential (04/06/2017 2:30 PM PST) + + + + + + | Component | Value | Ref Range | Performed | Pathologist | | | | | At | Signature | + + + + + + | White Blood | 11.4 (H) | 4.0 - 11.0 K/uL | [facility] | | | Cells | | | [facility] | | [...] + + + + | Hemoglobin | 12.0 | 11.5 - 16.0 | [facility] | | | | | g/dL | [facility] | | | | | | [facility]ICAL | | | | | | CENTER - | | | | | | LABORATORY | | + + + + + + | Hematocrit | 37.5 | 34.0 - 47.0 % | [facility] | | | | | | [facility] | | | | | | [facility] | | | | | | CENTER - | | | | | | LABORATORY | | + + + + + + | MCV | 101.0 | 83.0 - 101.0 fL | [facility] | | | [facility] | | | | | | [facility] - | | | | | | LABORATORY | | + + + + + + | MCH | 32.5 | 28.0 - 35.0 pg | [facility] | | | | | | [facility] | | | | | | [facility] | | | | | | CENTER - | | | | | | LABORATORY | | + + + + + + | MCHC | 32.1 | 32.0 - 36.0 | [facility] | | | | | g/dL | [facility] | | | | | | [facility] | | | | | | CENTER - | | | | | | LABORATORY | | + + + + + + | RDW-CV | 15.5 (H) | <15.0 % | [facility] | | | | | | [facility] | | | | | | [facility] | | | | | | CENTER - | | | | | | LABORATORY | | + + + + + + | Platelet | 231 | 140 - 440 K/uL | [facility] | | | Count | | | [facility] | | | | | | [facility] | | | | | | CENTER - | | | | | | LABORATORY | | + + + + + + | MPV | 9.5 | fL | [facility] | | | | | | [facility] | | | | | | [facility] | | | | | | CENTER - | | | | | | LABORATORY | | + + + + + + | % | 63.8 | 45.0 - 82.0 % | [facility] | | | Neutrophils | | | [facility] | | | | | | MEDICAL | | | | | | CENTER - | | | | | | LABORATORY | | + + + + + + | % | 23.3 | 20.0 - 45.0 % | [facility] | | | Lymphocytes | | | [facility] | | | | | | [facility]ICAL | | | | | | CENTER - | | | | | | LABORATORY | | + + + + + + | % Monocytes | 7.9 | 4.0 - 12.0 % | [facility] [...] | | Neutrophils | | K/uL | [facility] | [...] + + + | Absolute | 0.90 | 0.00 - 1.00 | [facility] | [...] | | Eosinophils | | K/uL | [facility] | | | | | | MEDICAL | | | | | | CENTER - | | | | | | LABORATORY | | + + + + + + | Absolute | 0.10 | 0.00 - 0.10 | [facility] | | | Basophils | | K/uL | [facility] | | | | | | [...] [facility] | [address] | [phone] | | [facility] | | [address] | | | - LABORATORY | | | | + + + + + documented in this encounter Visit Diagnoses + + | Diagnosis | + + | Chronic kidney disease, stage III (moderate) (HCC) Chronic kidney disease, Stage III | | (moderate) | + + | Other group home (current) drug therapy | + + documented in this encounter"
--- OUTSIDE RECORDS SUMMARY | ~2019-09-12 | XMS | Encounter Summary ---
Demographics + + + | Address | [address] | | | [place] [address] | + + + | Home Phone | | + + + | Preferred Language | Unknown | + + + | Marital Status | | + + + | Confucianist Affiliation | Unknown | + + + | Race | Unknown | + + + | Ethnic Group | Unknown | + + + Author + + + | Author | [facility] | | | and [place] | + + + | Organization | [facility] | | | [...] | | | | | [place] [address] | | + + + + + | Valentín Saleh | ECON | [address] | | | | | [place] [address] | | + + + + + | Roberto Carlos Lennon | LEVI | Unknown | | + + + + + Care Team Providers + +------+ + | Care Financial Services Officer Name | Role | Phone | + [...] | Specialty | Physical | Diagnoses | Naida, | Kulwinder, | | | Services | Medicine and | Arthritis | Francois Tello MD | Glenn Richards MD | | | Required | Rehabilitatio | of left | [address] | [address] | | | | n | ankle | [address] | [address] [place] | | | | | | [place] | [place] | | | | | | [place], [place] | [address] Phone: | | | | | | [address] | [phone] | | | | | | Phone: | Fax: | | | | | | [phone] | [phone] | | | | | | Fax: | | | | | | | [phone] | | +--------+ + + + + + Reason for Visit + + + | Reason | Comments | + + + | Follow-up | 3 month. Review labs | + + + | Ankle Pain | Chronic left ankle pain continues. Would like referral to | | | [facility] | + + + Encounter Details +--------+---------+ + + + | Date | Type | Department | Care Team | Description | +--------+---------+ + + + | 06/19/ | Office | [facility] | Francois Pascal, | Arthritis of left | | 2015 | Visit | MEDICINE [address] | [address] | ankle (Primary Dx); | | | | [address] [place], | [address], | Essential | | | | [place] [address] | [place] [address] | hypertension; | | | | [phone] | [phone] | Primary | | | | | | osteoarthritis of | | | | | | left ankle; | | | | | | Glossitis; | | | | | | Hyperlipidemia; | | | | | | CHRONIC KIDNEY | | | | | | DISEASE STAGE III | | | | | | (MODERATE); DM | | | | | | (diabetes mellitus) | +--------+---------+ + + + Social History [...] + | Blood Pressure | 120/70 | 06/19/2014 9:42 AM | | | | | PDT | | + + + + + | Pulse | 67 | 06/19/2014 9:42 AM | | | | | PDT | | + + + + + | Temperature | 36.6 C (97.9 F) | 06/19/2014 9:42 AM | | | | | PDT | | + + + + + | Respiratory Rate | 14 | 06/19/2014 9:42 AM | | | | | PDT | | + + + + + | Oxygen Saturation | 96% | 06/19/2014 9:42 AM | | | | | PDT | | + + + + + | Inhaled Oxygen | - | - | | | Concentration | | | | + + + + + | Weight | 75.1 kg (165 lb 8 | 06/19/2014 9:42 AM | | | | oz) | PDT | | + + + + + | Height | 162.6 cm (5' 4") | 06/19/2014 9:42 AM | | | | | PDT | | + + + + + | Body Mass Index | 28.41 | 06/19/2014 9:42 AM | | | | | PDT | | + + + + + documented in this encounter Progress Francois Borden MD - 06/19/2014 9:57 AM PDTFormatting of this note might be different f rom the original. Subjective: Patient ID: Alyson Lennon is a 83 y.o. female. HPI Left ankle OA, post fracture years ago. [facility] would like [facility]. He a nkle still hurts. She is not doing any water aerobics for exercize. "I don't like water" DM2 she is on lantus 120 nightly, [...] her diet "with every bit she takes". Autoimmune Glossitis, She is on her MTX. Her mouth is still occasionally sore but not to o bad right now. It still feeling slightly sore though. 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 Carmelo blunt follows with Dr Bolton for this. CKD, She urinates normally. 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 Social History: Reviewed history from 08/11/2011 and no changes required: Born in [facility] for [facility] years. and Remarried [...] motion Skin, no gross lesions Assessment: 1. Arthritis of left ankle * [facility] Physiatry - AMB Referral 2. Essential hypertension 3. Primary osteoarthritis of left ankle 4. Glossitis 5. Hyperlipidemia 6. CHRONIC KIDNEY DISEASE STAGE III (MODERATE) 7. DM (diabetes mellitus) Plan: She looks and feels feels fine except for the ankle. Reviewed the labs with the patient. Otherwise continue current medical regimen. RTC 3 months with labs prior. She declines the rapy. She declines a pain medication. documented in this encounter Plan of Treatment +--------+---------+ + + + | Date | Type | Specialty | Care Team | Description | +--------+---------+ + + + | 12/06/ | Office | Cardiology | Stephenie Paul, | | | 2020 | Visit | | [facility] [place] | | | | | | [place], | | | | | | [place] [address] | | | | | | [phone] | | | | | | | | +--------+---------+ + + + + + +--------+ + + | Name | Type | Priori | Associated Diagnoses | Order Schedule | | | | ty | | | + + +--------+ + + | * [facility] [place] | Outpatient | Routin | Arthritis of left | Ordered: 06/19/2014 | | Physiatry - AMB | Referral | e | ankle | | | Referral | | | | | + + +--------+ + + documented as of this encounter Visit Diagnoses + + | Diagnosis | + + | Arthritis of left ankle - Primary Unspecified arthropathy, ankle and foot | + + | Essential hypertension Unspecified essential hypertension | + + | Primary osteoarthritis of left ankle | + + | Glossitis | + + | Hyperlipidemia Other and unspecified hyperlipidemia | + + | CHRONIC KIDNEY DISEASE STAGE III (MODERATE) Chronic kidney disease, Stage III | | (moderate) | + + | DM (diabetes mellitus) Type II or unspecified type diabetes mellitus without mention | | of complication, not stated as uncontrolled | + + documented in this encounter
--- OUTSIDE RECORDS SUMMARY | ~2019-09-12 | XMS | Encounter Summary ---
Demographics + + + | Address | [address] | | | [place] [address] | + + + | Home Phone | | + + + | Preferred Language | Unknown | + + + | Marital Status | | + + + | Alevism Affiliation | Unknown | + + + | Race | Unknown | + + + | Ethnic Group | Unknown | + + + Author + + + | Author | [facility] | | | and [place] | + + + | Organization | [facility] | | | and [place] | + + + | Address | Unknown | + + + | Phone | Unavailable | + + + Support + + + + + | Name | Relationship | Address | Phone | + + + + + | Sigrid Lennon | ECON | [address] | | | | | [place] [address] | | + + + + + | Valentín Saleh | ECON | [address] | | | | | [place] [address] | | + + + + + | Roberto Carlos Lennon | LEVI | Unknown | | + + + + + Care Team Providers + +------+ + | Care Thimble Press Operator Name | Role | Phone | + +------+ + | Francois Pascal MD | PCP | | + +------+ + Encounter Details +--------+ + + + + | Date | Type | Department | Care Team | Description | +--------+ + + + + | 06/16/ | Hospital | [facility] | [place], | | | 2011 | Encounter | MED CTR LABORATORY | [address] | | | | | [address] [place] | [address] [facility] | | | | | [place] | [address] [place] | | | | | [address] | [address] | | | | | [phone] | | | +--------+ + + + [...] | | | | | | [place] [address] | | | | | | [phone] | | | | | | | | +--------+---------+ + + + documented as of this encounter Procedures + +--------+ + + + | Procedure Name | Priori | Date/Time | Associated Diagnosis | Comments | | | ty | | | | + +--------+ + + + | UA, MICROSCOPIC, | Routin | 06/17/2011 | | Results for this | | REFLEX | e | 9:44 AM | | procedure are in the | | | | PDT | | results section. | + +--------+ + + + | URINALYSIS, REFLEX | Routin | 06/17/2011 | | Results for this | | MICROSCOPIC AND/OR | e | 9:44 AM | | procedure are in the | | CULTURE | | PDT | | results section. | + +--------+ + + + | PROTEIN/CREATININE | Routin | 06/17/2011 | | Results for this | | RATIO, URINE | e | 9:44 AM | | procedure are in the | | | | PDT | | results section. | + +--------+ + + + | CBC WITH | Routin | 06/17/2011 | | Results for this | | DIFFERENTIAL | e | 9:38 AM | | procedure are in the | | | | PDT | | results section. | + +--------+ + + + | RENAL FUNCTION PANEL | Routin | 06/17/2011 | | Results for this | | | e | 9:38 AM | | procedure are in the | | | | PDT | | results section. | + +--------+ + + + documented in this encounter Results Protein/Creatinine Ratio, Urine (06/17/2011 9:44 AM PDT) + + + + + + | Component | Value | Ref Range | Performed | Pathologist | | | | | At | Signature | + + + + + + | Creatinine, | 88.56Comment: NO NORMAL | mg/dL | [facility] | | | Urine, | RANGE FOR RANDOM URINE | | [facility] | | | Random | SPECIMEN | | MEDICAL | | | | | | CENTER - | | | | | | LABORATORY | | + + + + + + | Protein, | 11 | mg/dL | [facility] | | | Urine | | | [facility] | | | | | | MEDICAL | | | | | | CENTER - | | | | | | LABORATORY | | + + + + + + | PRO/CREA | <0.2 | <0.2 | [facility] | | | RATIO,URINE | [...] + | [facility] | [address] | [place], [place] | [phone] | | [facility] | | [address] | | | - LABORATORY | | | | + + + + + | [facility] | [address] | [place], [place] | | | [facility] | | [address], [facility] | | | - LABORATORY | | | | + + + + + UA, Microscopic, Reflex (06/17/2011 9:44 AM PDT) + + + + + + | Component | Value | Ref Range | Performed | Pathologist | | | | | At | Signature | + + + + + + | White Blood | 5-10 | 0 - 1 /hpf | [facility] | | | Cells, | | | [facility] | | | Urine | | | MEDICAL | | | | | | CENTER - | | | | | | LABORATORY | | + + + + + + | Red Blood | 2-4 | 0 - 4 /hpf | [facility] | | | Cells, | | | [facility] | | | Urine | | | MEDICAL | | | | | | CENTER - | | | | | | LABORATORY | | + + + + + + | Squamous | FEW | FEW /hps | [facility] | | | Epithelial | | | [facility] | | | Cells, | | | MEDICAL | | | Urine | | | CENTER - | | | | | | LABORATORY | | + + + + + + | Bacteria, | MANY | NONE /hpf | [facility] | | | Urine | | | [facility] | | | | | | MEDICAL | | | | | | CENTER - | | | | | | LABORATORY | | + + + + + + | Amorphous | MODERATE | /hpf | [facility] | | | Crystals, | | | [facility] | | | Urine | | | MEDICAL | | | | | | CENTER - | | | | | | LABORATORY | | + + + + + + | Granular | RARE | /lpf | [facility] | | | Casts, | | | [facility] | | | Urine | | | MEDICAL | | | | | | CENTER - | | | | | | LABORATORY | | + + + + + + | Culture | YESComment: REFLEXED TO | | [facility] | | | Indicated | URINE CULTURE. | | [facility] | | | [...] [address] | [place] | [phone] | | [facility] | | [address] | | | - LABORATORY | | | | + + + + + | [facility] | [address] | [place] | | | [facility] | | [address] | | | - LABORATORY | | | | + + + + + Urinalysis, Reflex Microscopic and/or Culture (06/17/2011 9:44 AM PDT) + + + + + + | Component | Value | Ref Range | Performed | Pathologist | | | | | At | Signature | + + + + + + | COLLECTION | VOID | | [facility] | | | METHOD 1 | | | [facility] | | | | | | MEDICAL | | | | | | CENTER - | | | | | | LABORATORY | | + + + + + + | Color, | YELLOW | | [facility] | | | Urine | | | [facility] | | | | | | MEDICAL | | | | | | CENTER - | | | | | | LABORATORY | | + + + + + + | Clarity, | HAZY | | [facility] | | | Urine | | | [facility] | | | | | | MEDICAL | | | | | | CENTER - | | | | | | LABORATORY | | + + + + + + | Glucose, | NEGATIVE | NEGATIVE mg/dL | [facility] | | | Urine | | | [facility] | | | | | | MEDICAL | | | | | | CENTER - | | | | | | LABORATORY | | + + + + + + | Bilirubin, | NEGATIVE | NEGATIVE | [facility] | | | Urine | | | [facility] | | | | | | MEDICAL | | | | | | CENTER - | | | | | | LABORATORY | | + + + + + + | Ketones, | NEGATIVE | NEGATIVE | [facility] | | | Urine | | | [facility] | | | | | | MEDICAL | | | | | | CENTER - | | | | | | LABORATORY | | + + + + + + | Specific | 1.010 | 1.001 - 1.030 | [facility] | | | Shunk, | | | [facility] | | | Urine | | | MEDICAL | | | | | | CENTER - | | | | | | LABORATORY | | + + + + + + | Blood, | TRACE-INTACT | NEGATIVE | [facility] | | | Urine | | | [facility] | | | | | | MEDICAL | | | | | | CENTER - | | | | | | LABORATORY | | + + + + + + | pH, Urine | 7.0 | 5.0 - 8.0 | [facility] | | | | | | [facility] | | | | | | MEDICAL | | | | | | CENTER - | | | | | | LABORATORY | | + + + + + + | Protein, | NEGATIVE | NEGATIVE mg/dL | [facility] | | | Urine | | | [facility] | | | | | | MEDICAL | | | | | | CENTER - | | | | | | LABORATORY | | + + + + + + | Urobilinoge | NORMAL | NORMAL EU/dL | [facility] | | | n, Urine | | | [facility] | | | | | | MEDICAL | | | | | | CENTER - | | | | | | LABORATORY | | + + + + + + | Nitrite, | NEGATIVE | NEGATIVE | [facility] | | | Urine | | | [facility] | | | | | | MEDICAL | | | | | | CENTER - | | | | | | LABORATORY | | + + + + + + | Leukocyte | TRACE | NEGATIVE | [facility] | | | Esterase, | | | [facility] | | | Urine | | | MEDICAL | | | | | | CENTER - | | | | | | LABORATORY | | + + + + + + | MICROSCOPIC | YES | | [facility] | | | ? | | | [facility] | | [...] | + + + + + | [facility] | [address] | [place] | [phone] | | [facility] | | [address] | | | - LABORATORY | | | | + + + + + | [facility] | [address] | [place] | | | [facility] | | [id number] | | | - LABORATORY | | | | + + + + + CBC with Differential (06/17/2011 9:38 AM PDT) + + + + + + | Component | Value | Ref Range | Performed | Pathologist | | | | | At | Signature | + + + + + + | White Blood | 7.2 | 4.0 - 11.0 K/uL | [facility] | | | Cells | | | [facility] | | | | | | MEDICAL | | | | | | CENTER - | | | | | | LABORATORY | | + + + + + + | Red Blood | 3.51 (L) | 3.70 - 5.20 | [facility] | | | Cells | | M/uL | [facility] | | | | | | MEDICAL | | | | | | CENTER - | | | | | | LABORATORY | | + + + + + + | Hemoglobin | 12.9 | 11.5 - 16.0 | [facility] | | | | | gm/dL | [facility] | | | | | | MEDICAL | | | | | | CENTER - | | | | | | LABORATORY | | + + + + + + | Hematocrit | 38.6 | 34.0 - 47.0 % | [facility] | | | | | | [facility] | | | | | | MEDICAL | | | | | | CENTER - | | | | | | LABORATORY | | + + + + + + | MCV | 110.1 (H)Comment: @VALUE | 83.0 - 101.0 fL | [facility] | | | | CONSISTENT WITH | | [facility] | | | | PREVIOUS RESULTS | | MEDICAL | | | | | | CENTER - | | | | | | LABORATORY | | + + + + + + | MCH | 36.8 (H) | 28.0 - 35.0 pg | [...] + + + + | RDW-CV | 15.1 (H) | <15.0 % | [facility] | | | | | | [facility] | | | | | | MEDICAL | | | | | | CENTER - | | | | | | LABORATORY | | + + + + + + | Platelet | 189 | 140 - 440 K/uL | [facility] | | | Count | | | [facility] | | | | | | MEDICAL | | | | | | CENTER - | | | | | | LABORATORY | | + + + + + + | % | 54.7 | 45 - 75 % | [facility] | | | Neutrophils | | | [facility] | | | | | | MEDICAL | | | | | | CENTER - | | | | | | LABORATORY | | + + + + + + | % | 28.0 | 20 - 45 % | [facility] | | | Lymphocytes | | | [facility] | | | | | | MEDICAL | | | | | | CENTER - | | | | | | LABORATORY | | + + + + + + | % Monocytes | 10.9 | 4 - 12 % | [facility] | | | | | | [facility] | | | | | | MEDICAL | | | | | | CENTER - | | | | | | LABORATORY | | + + + + + + | % | 5.8 (H) | 0 - 5 % | [facility] | | | Eosinophils | | | [facility] | | | | | | MEDICAL | | | | | | CENTER - | | | | | | LABORATORY | | + + + + + + | % Basophils | 0.6 | 0 - 1 % | [facility] | | | | | | [facility] | | | | | | MEDICAL | | | | | | CENTER - | | | | | | LABORATORY | | + + + + + + | Absolute | 3.9 | 1.5 - 6.6 K/uL | [facility] | | | Neutrophils | | | [facility] | | | | | | MEDICAL | | | | | | CENTER - | | | | | | LABORATORY | | + + + + + + | Absolute | 2.0 | 0.6 - 3.2 K/uL | [facility] | | | Lymphocytes | | | [facility] | | | | | | MEDICAL | | | | | | CENTER - | | | | | | LABORATORY | | + + + + + + | Absolute | 0.8 | 0.0 - 1.0 K/uL | [facility] | | | Monocytes | | | [facility] | | | | | | MEDICAL | | | | | | CENTER - | | | | | | LABORATORY | | + + + + + + | Absolute | 0.4 | 0.0 - 0.4 K/uL | [facility] [...] | FLAG | 1Comment: Macrocytosis | | [facility] | | | | | | [facility] [...] [address] | [place] | [phone] | | [facility] | | [address] | | | - LABORATORY | | | | + + + + + | [facility] | [address] | [place], [place] | | | [facility] | | [id number] | | | - LABORATORY | | | | + + + + + Renal Function Panel (06/17/2011 9:38 AM PDT) + + + + + [...] + + + + | Calcium | 9.1 | 8.3 - 10.5 | [facility] | | | | | mg/dL | [facility] | | | | | | MEDICAL | | | | | | CENTER - | | | | | | LABORATORY | | + + + + + + | Phosphorus | 2.9 | 2.5 - 4.6 mg/dL | [facility] [...] + + + + | BUN | 23 (H) | 7 - 18 mg/dL | [facility] | | | | | | [facility] | | | | | | MEDICAL | | | | | | CENTER - | | | | | | LABORATORY | | + + + + + + | Creatinine | 1.42 (H) | 0.60 - 1.30 | [facility] | | | | | mg/dL | [facility] | | | | | | MEDICAL | | | | | | CENTER - | | | | | | LABORATORY | | + + + + + + | Estimated | 36 (L)Comment: For | >60 mL/min/A | [facility] | | | GFR | -Americans, | | [facility] | | | | please multiply [...] + + + + | BUN/Creatin | 16.2 | 12 - 20 | [facility] | | | ine Ratio | | | [facility] | | | | | | MEDICAL | | | | | | CENTER - | | | | | | LABORATORY | | + + + + + + | Na | 134 (L) | 136 - 149 mEq/L | [facility] | | | | | | [facility] | | | | | | MEDICAL | | | | | | CENTER - | | | | | | LABORATORY | | + + + + + + | K | 3.9 | 3.5 - 5.1 mEq/l | [facility] [...] + + + | Anion Gap | 7.9 | 6.0 - 17.0 | [facility] | | | | | [...] [address] | [place] | [phone] | | [facility] | | [address] | | | - LABORATORY | | | | + + + + + | [facility] | [address] | [place] | | | [facility] | | [address], [facility] | | | - LABORATORY | | | | + + + + + documented in this encounter Visit Diagnoses Not on filedocumented in this encounter"
--- OUTSIDE RECORDS SUMMARY | ~2019-09-12 | XMS | Encounter Summary ---
Demographics + + + | Address | [address] | | | [place] [address] | + + + | Home Phone [...] + | Author | [facility] | | | and [place] | + + + | Organization | [facility] | | | and [...] | | | | | [place] [address] | | + + + + + | Valentín Saleh | ECON | [address] | | | | | [place] [address] | | + + + + + | Roberto Carlos Lennon | LEVI | Unknown | | + + + + + Care Team Providers + +------+ + | Care Diesel Fitter Mechanic Name | Role | Phone | [...] | hypertension | [address] | DORMITORY KEEPER [address] | | | | | Chronic | [place] [address] | | | | | kidney | [place] | [address] | | | | | disease, | [address] | [place], | | | | | stage III | Phone: | [place] [address] | | | | | (moderate) | [phone] | Phone: | | | | | (HCC) Type | Fax: | [phone] | | | | | II or | [phone] | Fax: | | | | | unspecified | | [phone] | | | | | type | [...] | | | | | | | ([facility]) | | | | | | | Procedures | | | | | | | [place] OFFICE | | | | | | [...] [address] | ([facility]) (Primary Dx); | | | | [place], [place] | [address] | Hypertension, renal | | | | [address] | [address] | disease, stage 1-4 | | | | [phone] | | or unspecified | | | [...] 10/21/2014 Note Last Updated: 01/08/2015 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 -serum creatinine is above usual baseline; possibly related to fluid status with recent URI , also low normal BP -subnephrotic range proteinuria (on ACEI) -hydrate well, decrease lisinopril -continue care home goal of hypertensive and glycemic control to [...] | | | | | | [place] [address] | | | | | | [phone] | | | | | | | [...]
--- OUTSIDE RECORDS SUMMARY | ~2019-09-12 | XMS | Encounter Summary ---
Demographics + + + | Address | [address] | | | [place] [address] | + + + | Home Phone | | + + + | Preferred Language | Unknown | + + + | Marital Status | | + + + | Gnosticism Affiliation | Unknown | + + + | Race | Unknown | + + + | Ethnic Group | Unknown | + + + Author + + + | Author | [facility] | | | and [place] | + + + | Organization | [facility] | | | and [...] | | | | | [place] [address] | | + + + + + | Valentín Saleh | ECON | [address] | | | | | [place] [address] | | + + + + + | Roberto Carlos Lennon | LEVI | Unknown | | + + + + + Care Team Providers + +------+ + | Care Therapist Name | Role | Phone | [...] + | 06/23/ | Telephone | [facility] | Airam Menjivar | Results | | 2012 | | MEDICINE [address] | [place] | | | | | [place], | | | | | | [place] [address] | | | | | | [phone] | | | +--------+ + + + [...] | 2019 | Visit | | [address] [facility] | | | | | | [place], | | | | | | [place] [address] | | | | | | [phone] | | | | | | | | +--------+---------+ + + + documented as of this encounter Visit Diagnoses Not on filedocumented in this encounter"
--- OUTSIDE RECORDS SUMMARY | ~2019-09-12 | XMS | Encounter Summary ---
Demographics + + + | Address | [address] | | | [place] [address] | + + + | Home Phone [...] | [facility] | | | and [place] | + + + | Organization | [facility] | | | and [place] | + + + | Address | Unknown | + + + | Phone | Unavailable | + + + Support + + + + + | Name | Relationship | Address | Phone | + + + + + | Sigrid Lennon | ECON | [address] | | | | | [place] [address] | | + + + + + | Valentín [place]h | ECON | [address] | | | | | [place] [address] | | + + + + + | Roberto Carlos Lennon | LEVI | Unknown | | + + + + + Care Team Providers + +------+ + | Care Commission Sales Associate Name | Role | Phone | + +------+ + | Francois Pascal MD | PCP | | + +------+ + Encounter Details +--------+ + + + + | Date | Type | Department | Care Team | Description | +--------+ + + + + | 07/30/ | [facility] | [facility] | Glenn Miramontes | Left ankle pain | | 2015 | Encounter | MED CTR XRAY [address] | | | | | [place] | [place], [place] | | | | | [place] [address] | [address] | | | | | [phone] | | | +--------+ + + + [...] | 2019 | Visit | | [address] [facility] | | | | | | [place], | | | | | | [place] [address] | | | | | | [phone] | | | | | | | | +--------+---------+ + + + documented as of this encounter Procedures + +--------+ + + + | Procedure Name | Priori | Date/Time | Associated Diagnosis | Comments | | | ty | | | | + +--------+ + + + | XR ANKLE LEFT 2 VW | Routin | 07/30/2014 | Left ankle pain | Results for this | | | e | 10:39 AM | | procedure are in the | | | | PDT | | results section. | + +--------+ + + + documented in this encounter Results XR Ankle Left 2 Vw (07/30/2014 10:39 AM PDT) + + | Specimen | + + | | + + + + + | Narrative | Performed At | + + + | XR ANKLE LEFT 2 VW 07/30/2014 10:38 AM HISTORY: Chronic ankle | [facility] | | pain, history of prior fracture. COMPARISON: None. FINDINGS: | [facility] | | There are 2 screws that fix the medial malleolus. There are no acute | MEDICAL CENTER | | osseous abnormalities. Diffuse osteopenia is present. 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 The talar dome remains | | | intact. There is a small spur of the inferior calcaneus. Soft tissues | | | are unremarkable. IMPRESSION - No acute findings. 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 Dictated and Signed by: | | | James Johnson MD Electronically signed: 07/30/2014 10:59 AM | | + + + + + | Procedure Note | + + | Taras Melendez Results In - 07/30/2014 11:02 AM PDT XR ANKLE LEFT 2 VW 07/30/2014 10:38 AM | | | | HISTORY: Chronic ankle pain, history of prior fracture. | | | | COMPARISON: None. | | | | FINDINGS: | | There are 2 screws that fix the medial malleolus. There are no acute osseous | | abnormalities. Diffuse osteopenia is present. Advanced degenerative changes are | | present of the tibiotalar joint with subchondral sclerosis and joint space loss. | | The talar dome remains intact. There is a small spur of the inferior calcaneus. | | Soft tissues are unremarkable. | | | | IMPRESSION - | | No acute findings. | | | | Advanced degenerative changes of tibiotalar joint. | | | | Dictated and Signed by: James Johnson MD | | Electronically signed: 07/30/2014 10:59 AM | + + + + + + + | Performing | Address | City/State/Zipcode | Phone Number | | Organization | | | | + + + + + | [facility] | [address] | [place] | [phone] | | [facility] | | [address] | | | - IMAGING | | | | + + + + + documented in this encounter Visit Diagnoses + + | Diagnosis | + + | Left ankle pain Pain in joint, ankle and foot | + + documented in this encounter"
--- OUTSIDE RECORDS SUMMARY | ~2019-09-12 | XMS | Encounter Summary ---
Demographics + + + | Address | [address] | | | [place] [address] | + + + | Home Phone | | + + + | Preferred Language | Unknown | + + + | Marital Status | Single | + + + | Synagogue Affiliation | UNK | + + + | Race | White | + + + | Ethnic Group | Not or | + + + Author + + + | Author | [facility] | + + + | Organization | [facility] | + + + | Address | Unknown | + + + | Phone | Unavailable | + + + Support + + + + + | Name | Relationship | Address | Phone | + + + + + | Sigrid Lennon | LEVI | [address] | | | | | [place] [address] | | + + + + + | None None | ECON | Unknown | Unavailable | + + + + + Care Team Providers + +------+ + | Care Time Study Technologist Name | Role | Phone | [...] | | | Surgery Services at | [facility] | | | | | [address] | [place], [place] | | | | | [address] | [address] | | | | | Physician's | [phone] | | | | | [address] floor | | | | | | [place], [place] | | | | | | [address] | | | | | | [phone] | | | +--------+ + + + [...]
--- OUTSIDE RECORDS SUMMARY | ~2019-09-12 | XMS | Encounter Summary ---
Demographics + + + | Address | [address] | | | [place] [address] | + + + | Home Phone [...] | [facility] | | | and [place] | + + + | Organization | [facility] | | [...] | | | | | [place] [address] | | + + + + + | Valentín Saleh | ECON | [id number] | | | | | [place] [address] | | + + + + + | Roberto Carlos Lennon | LEVI | Unknown | | + + + + + Care Team Providers + +------+ + | Care Implementation Specialist Name | Role | Phone | + +------+ + | Francois Pascal MD | PCP | | + +------+ + Reason for Visit + + + | Reason | Comments | + + + | Altered Mental | | | Status | | + + + Auth/Cert +--------+--------+ + + + + | Status | Reason | Specialty | Diagnoses / | Referred By | Referred To | | | | | Procedures | Contact | Contact | +--------+--------+ + + + + | | | | Diagnoses | | | | | | | Somnolence | | | | | | | Urinary | | | | | | | tract | | | | | | | infection | | | | | | | without | | | | | | | hematuria, | | | | | | | site | | | | | | | unspecified | | | | | | | Dementia | | | | | | | due to | | | | | | | Alzheimer's | | | | | | | disease | | | | | | | ([facility]) | | | +--------+--------+ + + + + Encounter Details +--------+ + + + + | Date | Type | Department | Care Team | Description | +--------+ + + + + | 04/05/ | Emergency | [facility] | Nik Olea, | Urinary tract | | 2019 - | | [facility] | [address] | infection without | | | | [address] [place] | [facility] [place] | hematuria, site | | 04/06/ | | [place] [address] | [place] [address] | unspecified (Primary | | 2019 | | [phone] | [phone] | Dx); Somnolence; | | | | | | Dementia due to | | | | | Royal Avila MD | Alzheimer's disease | | | | | [address] | ([facility]); Hypertension, | | | | | [place] | renal disease, | | | | | [id number] | stage 1-4 or | | | | | | unspecified chronic | | | | | Rosibel Aguilar MD | kidney disease | | | | | [address] | | | | | | [place] | | | | | | [id number] | | | | | | | [...] + + + | Blood Pressure | 130/70 | 04/06/2019 7:27 AM | | | | | PST | | + + + + + | Pulse | 58 | 04/06/2019 7:27 AM | | | | | PST | | + + + + + | Temperature | 35.6 C (96 F) | 04/06/2019 7:27 AM | | | | | PST | | + + + + + | Respiratory Rate | 20 | 04/06/2019 7:27 AM | | | | | PST | | + + + + + | Oxygen Saturation | 99% | 04/06/2019 7:27 AM | | | | | PST | | + + + + + | Inhaled Oxygen | - | - | | | Concentration | | | | + + + + + | Weight | 57.9 kg (127 lb 10.3 | 04/06/2019 1:00 AM | | | | oz) | PST | | + + + + + | Height | - | - | | + + + + + | Body Mass Index | 20.6 | 05/31/2018 11:21 AM | | | [...] documented as of this encounter Discharge Summaries Rosibel Aguilar MD - 04/06/2019 11:30 AM PST [place], [place] HOSPITALIST DISCHARGE SUMMARY Pt. Name/Age/: Alyson Lennon 88 y.o. 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 88 yo F with history of atrial fibrillation, T2DM, dementia, hypertension who presented wit h altered mental status/decreased responsiveness. #Acute metabolic encephalopathy in the s/o underlying dementia #urinary tract infection Patient presented with altered mental status found to have urinary tract infection. >100K G NR on urine culture. Quickly improved on ceftriaxone and patient reported she was back to [facility] the morning after admission. Continue cefdinir to complete treatment course. #A fib, permanent Patient has known history of a fib. Slow ventricular response noted on admission ECG. Decre ased metoprolol to 50 mg/d. DISCHARGE MEDICATIONS: Discharge Medications New Medications Details cefdinir 300 mg capsule Take 1 capsule by mouth 2 times daily for 5 days. aka: OMNICEF Changed Medications Details metoprolol succinate 50 mg 24 hr tablet Take 1 tablet by mouth Daily. What changed: medication strength how much to take aka: TOPROL-XL Unchanged Medications Details acetaminophen 325 mg tablet Take 2 tablets by mouth every 6 hours as needed for Pain. aka: TYLENOL allopurinol 100 mg tablet TAKE ONE TABLET BY MOUTH TWICE A DAY aka: ZYLOPRIM atorvaSTATin 40 mg tablet Take 1 tablet by mouth nightly. aka: LIPITOR BD AUTOSHIELD DUO 30G X 5 MM Misc Generic drug: Insulin Pen Needle Use to inject insulin 4 times daily. BLOOD GLUCOSE TEST STRIPS Strp Use to check blood sugar twice daily. Dx E08.22 with long-term insulin use cholecalciferol 25 mcg (1,000 units) tablet Take 1 tablet by mouth Daily. aka: VITAMIN D-3 colchicine 0.6 mg tablet Take 2 tablets at first sign of gout flare, then 1 tablet daily as needed. escitalopram 10 mg tablet Take 1 tablet by mouth Daily. aka: LEXAPRO insulin aspart 100 units/mL injection Inject under the skin three times daily as per sliding scale 0-200 = 0 units 201-250 = 2 units 251-300 = 4 units 301-350 = 6 units 351-400 = 8 units 401+ = 10 units CALL aka: novoLOG insulin glargine 100 units/mL injection (vial) 10 units every morning and 10 units every evening aka: LANTUS Insulin Syringe-Needle U-100 31G X 5/16" 0.3 ML Misc USE TO ADMINISTER LANTUS INSULIN TWO TIMES A DAY aka: SURE COMFORT INSULIN SYRINGE lisinopril 20 mg tablet TAKE ONE TABLET BY MOUTH EVERY DAY aka: PRINIVIL, ZESTRIL methotrexate 2.5 mg tablet Take 2 tablets by mouth Once a week. Indications: Rheumatoid Arthritis rivaroxaban 10 mg tablet Take 1 tablet by mouth Daily (with dinner). aka: XARELTO triamcinolone 0.1% cream Apply to affected area twice daily aka: KENALOG trolamine salicylate 10% cream Apply to hands and joints topically as needed for osteoarthritis up to four times daily aka: ASPERCREME UNCODED DME A wheelchair are medically indicated to assist with movement and proper repositioning to p revent decubiti. UNCODED DME A hospital bed medically indicated to assist with movement and proper repositioning to pre vent decubiti. UNCODED DME Bed rails for patient bed. Most recent weight: Input and output for last 24hrs: Wt Readings from Last 1 Encounters: 04/06/19 57.9 kg (127 lb 10.3 oz) I/O last 24 Hours: In: - Out: 100 [Urine:100] Vitals Ranges: Temp: [35.4 C (95.8 F)-36.6 C (97.8 F)] 35.6 C (96 F) Pulse: [49-65] 58 Resp: [12-23] 20 BP: (106-152)/(42-86) 130/70 Vitals: Temp: 35.6 C (96 F) BP: 130/70 Pulse: 58 Resp: 20 SpO2: 99 % SpO2 99 % on room air at flow rate L/min PHYSICAL EXAM: Patient seen and examined by me on 04/06/19 Gen: WDWN, nad CV: IIRR no m/r/g Pulm: LCAB Ext: mild edema of LLE PROCEDURES AND CONSULTS: Procedures: None Consults: None PENDING RESULTS: Urine culture DISPOSITION AND DISCHARGE INSTRUCTIONS: Follow-up Information Francois Pascal MD On 04/12/2019. Specialty: Family Medicine Why: This is your hospital follow up appointment, scheduled for 11:15, Please check in at 11:00 Contact information: [address] [place] [address] Condition: stable Diet: cc Less than 30 minutes were spent on discharge and coordination of post-hospital care. Electronically signed by: Rosibel Aguilar MD, 04/06/2019 11:30 AM [facility] documented in this enco unter Discharge Instructions Instructions Rosibel Aguilar MD - 04/06/2019Joy, You were hospitalized with a bladder infection. Continue taking cefdinir (antibiotic) as pr escribed until you run out. Rosibel Aguilar MD documented in this encounter Medications at Time of Discharge + + + +---------+ + + | Medication | Sig | Dispensed | Refills | Start | End Date | | | | | | Date | | + + + +---------+ + + | acetaminophen | Take 2 tablets by | 120 | 1 | 11/02/19 | | | (TYLENOL) 325 mg | mouth every 6 hours | tablet | | 19 | | | tablet | as needed for Pain. | | | | | + + + +---------+ + + | allopurinol | TAKE ONE TABLET BY | 90 | 1 | 03/12/19 | | | (ZYLOPRIM) 100 mg | MOUTH TWICE A DAY | tablet | | 20 | | | tablet | | | | | | + + + +---------+ + + | atorvaSTATin | Take 1 tablet by | 90 | 1 | 11/02/19 | | | (LIPITOR) 40 mg | mouth nightly. | tablet | | 19 | | | tabletIndications: | | | | | | | Dyslipidemia | | | | | | + + + +---------+ + + | BD AUTOSHIELD DUO | Use to inject | 400 | 1 | 10/31/19 | | | 30G X 5 MM | insulin 4 times | each | | 19 | | | MISCIndications: | daily. | | | | | | Diabetes [...] + + | cholecalciferol | Take 1 tablet by | 90 | 3 | 11/02/19 | | | (VITAMIN D-3) 1000 | mouth Daily. | tablet | | 19 | | | units TABS | | | | | | + + + +---------+ + + | colchicine 0.6 mg | Take 2 tablets at | 30 | 0 | 11/02/19 | | | tablet | first sign of gout | tablet | | 19 | | | | flare, then 1 tablet | | | | | | | daily as needed. | | | | | + + + +---------+ + + | escitalopram | Take 1 tablet by | 90 | 1 | 11/02/19 | | | (LEXAPRO) 10 mg | mouth Daily. | tablet | | 19 | | | tabletIndications: | | | | | | | Reactive depression | | | | | | + + + +---------+ + + | Glucose Blood | Use to check blood | 200 | 3 | 11/01/19 | | | (BLOOD GLUCOSE TEST | sugar twice daily. | each | | 19 | | | STRIPS) | Dx E08.22 with | | | | | | STRPIndications: | long-term insulin | | | | | | Diabetes mellitus | use | | | | | | due [...] + + | insulin aspart | Inject under the | | 0 | | | | (NOVOLOG) 100 | skin three times | | | | | | units/mL injection | daily as per sliding | | | | | | | scale 0-200 = 0 | | | | | | | [id number] = 2 | | | | | | | [id number] = 4 | | | | | | | units 301-350 = 6 | | | | | | | units 351-400 = 8 | | | | | | | units 401+ = | | | | | | | 10 units CALL MD | | | | | + + + +---------+ + + | insulin glargine | 10 units every | 50 mL | 6 | 10/25/ | | | (LANTUS) 100 | morning and 10 units | | | 19 | | | units/mL injection | every evening [...] + + + +---------+ + + | Insulin | USE TO ADMINISTER | 100 | 0 | 12/27/19 | | | Syringe-Needle U-100 | LANTUS INSULIN TWO | each | | 19 | | | (SURE COMFORT | TIMES A DAY | | | | | | INSULIN SYRINGE) 31G | | | | | | | X 07/20" 0.3 ML MISC | | | | | | + + + +---------+ + + | lisinopril | TAKE ONE TABLET BY | 90 | 1 | 11/02/19 | | | (PRINIVIL, ZESTRIL) | MOUTH EVERY DAY | tablet | | 19 | | | 20 mg tablet | | | | | | + + + +---------+ + + | methotrexate 2.5 | Take 2 tablets by | 20 | 2 | 10/27/19 | | | mg | mouth Once a week. | tablet | | 19 | | | tabletIndications: | Indications: | | | | | | Rheumatoid Arthritis | Rheumatoid Arthritis | | | | | + + + +---------+ + + | metoprolol | Take 1 tablet by | 30 | 0 | 04/06/19 | | | succinate | mouth Daily. | tablet | | 20 | | | (TOPROL-XL) 50 mg 24 | | | | | | | hr tablet | | | | | | + + + +---------+ + + | rivaroxaban | Take 1 tablet by | 90 | 1 | 11/02/19 | | | (XARELTO) 10 mg | mouth Daily (with | tablet | | 19 | | | tablet | dinner). | | | | | + + + +---------+ + + | triamcinolone | Apply to affected | | 0 | | | | (KENALOG) 0.1% cream | area twice daily | | | | | + + + +---------+ + + | trolamine | Apply to hands and | | 0 | | | | salicylate | joints topically as | | | | | | (ASPERCREME) 10% | needed for | | | | | | cream | osteoarthritis up to | | | | | | | four times daily | | | | | + + + +---------+ + + | UNCODED | Bed rails for | 1 each | 0 | 10/27/19 | | | DMEIndications: | patient bed. | | | 19 | | | Dementia due to | | | | | | | Alzheimer's disease | | | | | | | ([facility]) | | | | | | + + + +---------+ + + | UNCODED | A wheelchair are | 1 each | 0 | 10/12/19 | | | DMEIndications: Gait | medically indicated | | | 19 | | | instability, | to assist with | | | | | | Physical | movement and proper | | | | | | deconditioning, | repositioning to | | | | | | Arthrosis of left | prevent decubiti. | | | | | | ankle | | | | | | + + + +---------+ + + | UNCODED | A hospital bed | 1 each | 0 | 10/12/19 | | | DMEIndications: Gait | medically indicated | | | 19 | | | instability, | to assist with | | | | | | Physical | movement and proper | | | | | | deconditioning, | repositioning to | | | | | | Arthrosis of left | prevent decubiti. | | | | | | ankle | | | | | | + + + +---------+ + + | cefdinir (OMNICEF) | Take 1 capsule by | 10 | 0 | 04/06/19 | | | 300 mg capsule | mouth 2 times daily | capsule | | 20 | 0 | | | for 5 days. | | | | | + + + +---------+ + + documented as of this encounter Progress Notes Brian Su RN - 04/06/2019 3:15 PM PSTPt discharged to adult home in [facility] with gopi hernández. Ambrocio Delaney, Cylinder Press Operator Helper - 04/06/2019 10:54 AM PSTFormatting of this note might be different f rom the original. PHARMACY SERVICES: ADMISSION MEDICATION REVIEW Alyson Lennon is a 88 y.o. female admitted on 04/05/2019. Patient is not a reliable historian. Location of Patient when reviewed: MEDICAL FLOOR Patient s prior to admit medication and over the counter (OTC) medications/herbal supplem ents list obtained from: X MAR from facility: [facility] X Doctor's office: Dr. Pascal Vaccines up to date? Influenza Yes Pneumococcal Yes Tdap Unsure Shingles Yes Noted medications discrepancies or medication-related issues: Dosage/Form/Frequency change: PHYSICAL INTEGRATION PRACTITIONER Medication: Prior to Admission Sig: Correct Dosage/Form: Correct Sig: Insulin aspart 100 units/ml injection pen Inject 4 times daily (before meals at bedtime) p er sliding scale (before meals and at bedtime) per sliding scale: BG 0-149 = 0 units 150-200 = 2 units 201-250 = 4 units 251-300 = 6 units 301-350 = 8 units 351-400 = 10 units 401 or greater = 12 units and call provider 301-350 = 8 units 351-400 = 10 units Inject under the skin three times daily as per sliding scale 0-200 = 0 units 201-250 = 2 units 251-300 = 4 units 301-350 = 6 units 351-400 = 8 units 401+ = 10 units CALL MD Medication added: Medication: Prior to Admission Sig: Triamcinolone william 0.1% cream Apply to affected area twice daily Aspercreme 10% lotion Apply to hands and joints topically as needed for osteoarthritis up to four times daily Removed therapy: Medication: Prior to Admission Sig: Reason for Removal: Aspirin 81 mg tab 1 tab by mouth daily Therapy complete Bisacodyl 10 mg supp 1 supp rectally daily as needed for const Therapy complete Calcium 500 mg tab 1 tab by mouth daily Therapy complete Docusate 250 mg cap 1 cap by mouth twice daily Therapy complete Folic acid tab 1 tab by mouth once daily Therapy complete Magnesium hydroxide 400 mg/5 ml susp 30 ml by mouth daily as needed Therapy complete Polyethylene glycol packet 1 diluted packet by mouth daily as needed Therapy complete Sodium phosphate enema Place one enema rectally daily as needed for constipation Therapy complete Other: Patient takes methotrexate on Mondays for RA - last dose 04/02/2019 Medication: Prior to Admission Sig: Patient taking differently PHYSICAL INTEGRATION PRACTITIONER as: Colchicine 0.6 mg tab 2 tabs by mouth at first sign of gout flare then 1 tab daily as need ed Not taking This is not on the MAR at [facility] Best possible PHYSICAL INTEGRATION PRACTITIONER medication list after pharmacy review: PT REPORTED TAKING NOT TAKING Medication Sig Last Dose Dispense Doc. Provider acetaminophen (TYLENOL) 325 mg tablet Take 2 tablets by mouth every 6 hours as needed for Pain. Taking 120 tablet Francois Pascal MD allopurinol (ZYLOPRIM) 100 mg tablet TAKE ONE TABLET BY MOUTH TWICE A DAY Taking 90 tablet Francois Pascal MD atorvaSTATin (LIPITOR) 40 mg tablet Take 1 tablet by mouth nightly. Taking 90 tablet Ambrocio Pascal MD BD AUTOSHIELD DUO 30G X 5 MM MISC Use to inject insulin 4 times daily. Taking 400 each Maurice Pascal MD cholecalciferol (VITAMIN D-3) 1000 units TABS Take 1 tablet by mouth Daily. Taking 90 tabl et Francois Pascal MD colchicine 0.6 mg tablet Take 2 tablets at first sign of gout flare, then 1 tablet daily a s needed. Patient not taking: Reported on 04/06/2019 Not Taking 30 tablet Francois Pascal MD escitalopram (LEXAPRO) 10 mg tablet Take 1 tablet by mouth Daily. Taking 90 tablet Francois Pascal MD Glucose Blood (BLOOD GLUCOSE TEST STRIPS) STRP Use to check blood sugar twice daily. Dx E0 8.22 with long-term insulin use 200 each Francois Pascal MD insulin aspart (NOVOLOG) 100 units/mL injection Inject under the skin three times daily as per sliding scale 0-200 = 0 units 201-250 = 2 units 251-300 = 4 units 301-350 = 6 units 351-400 = 8 units 401+ = 10 units CALL MD Taking Historical Provider, insulin glargine (LANTUS) 100 units/mL injection (vial) 10 units every morning and 10 unit s every evening Taking 50 mL Francois Pascal MD Insulin Syringe-Needle U-100 (SURE COMFORT INSULIN SYRINGE) 31G X 5/16" 0.3 ML MISC USE TO ADMINISTER LANTUS INSULIN TWO TIMES A DAY Taking 100 each Francois Pascal MD lisinopril (PRINIVIL, ZESTRIL) 20 mg tablet TAKE ONE TABLET BY MOUTH EVERY DAY Taking 90 t ablet Francois Pascal MD methotrexate 2.5 mg tablet Take 2 tablets by mouth Once a week. Indications: Rheumatoid Ar thritis Taking 20 tablet Francois Pascal MD metoprolol succinate (TOPROL-XL) 100 mg ER tablet Take 1 tablet by mouth Daily. Taking 90 tablet Francois Pascal MD rivaroxaban (XARELTO) 10 mg tablet Take 1 tablet by mouth Daily (with dinner). Taking 90 t ablet Francois Pascal MD triamcinolone (KENALOG) 0.1% cream Apply to affected area twice daily Historical Ashley bundy MD trolamine salicylate (ASPERCREME) 10% cream Apply to hands and joints topically as needed for osteoarthritis up to four times daily Historical Provider, UNCODED DME Bed rails for patient bed. Taking 1 each Francois Pascal MD UNCODED DME A wheelchair are medically indicated to assist with movement and proper reposi tioning to prevent decubiti. Taking 1 each Francois Pascal MD UNCODED DME A hospital bed medically indicated to assist with movement and proper repositi oning to prevent decubiti. Taking 1 each Francois Pascal MD Medication review performed and electronically signed by Maria Isabel Vaughn, Utility Aide 2019 10:16 AM Reviewed by Francois Jorge, Cylinder Press Operator Helper 04/06/2019 10:46 AM doc umented in this encounter H&P Notes Royal Avila MD - 04/05/2019 11:06 PM PST [facility] HISTORY AND PHYSICAL Pt. Name/Age/: Alyson Lennon 88 y.o. 1930 Date of admission: 04/05/2019 Admitting Physician: Royal Avila MD Primary Care Provider: Francois Pascal MD CHIEF COMPLAINT: Altered Mental status HISTORY OF PRESENT ILLNESS: This is a 88 y.o. female past medical history significant for diabetes mellitus type 2, dem entia, hypertension who presents with altered mental status. She is a poor historian second [place] to her dementia. Patient was sent to the emergency department for evaluation that is. States that patient is having less responsiveness increasing somnolence. She denies chest pain and abdominal pain during my interview. PAST MEDICAL and SURGICAL HISTORY: Past Medical History: Diagnosis Date Arthritis CAD (coronary artery disease) Carotid stenosis CHF (congestive heart failure) ([facility]) Chronic kidney disease, stage III (moderate) ([facility]) DM type 2 (diabetes mellitus, type 2) ([facility]) 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 DVT (deep vein thrombosis) in Glossitis Gout H/O ventricular septal defect repair Hyperlipemia Hypertension Left ankle pain 07/30/2014 Myocardial infarction (HCC) (1994&1996) CAR with Hx of Myocardial infarction Old VT (myocardial infarction) OSTEOARTHRITIS, ANKLE, LEFT 01/21/2010 Osteoporosis Other abnormal clinical finding Verebral Compression Fractures Squamous carcinoma 12/05/2012 Vitamin D deficiency Past Surgical History: Procedure Laterality Date BREAST BIOPSY Left 1974 CATARACT REMOVAL 2006 OU CHOLECYSTECTOMY 1986 CORONARY ARTERY BYPASS GRAFT 1996 Grafting for Coronary Artery Bypass x 3 vessels and VSD Patch FEMUR FRACTURE SURGERY Left 07/10/2016 Procedure: ORIF IM RODDING FEMORAL TROCHANTERIC NAIL; Surgeon: Ru Barbosa MD; Location: [facility] MAIN OR HIATAL HERNIA REPAIR 1984 ORIF Left Ankle Unstable Trimalleolar Fracture Dislocation 03/24/2009 Previous Inferior Vena Cava Filter FAMILY HISTORY: family history includes Heart attack in her mother; Heart disease in her mother and sister; Other (see comment) in an other family member. SOCIAL HISTORY: reports that she has never smoked. She has never used smokeless tobacco. She reports that she does not drink alcohol or use drugs. REVIEW OF SYSTEMS: All systems were NOT reviewed 2nd to patient's dementia HOME MEDICATIONS: 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 allopurinol (ZYLOPRIM) 100 mg tablet TAKE ONE TABLET BY MOUTH TWICE A DAY aspirin (ASPIRIN EC) 81 MG EC tablet Take 1 tablet by mouth Daily. atorvaSTATin (LIPITOR) 40 mg tablet Take 1 tablet by mouth nightly. BD AUTOSHIELD DUO 30G X 5 MM MISC Use to inject insulin 4 times daily. bisacodyl (DULCOLAX) [address] 1 suppository rectally Daily as needed for Constipation. Calcium 500 MG TABS Take 1 tablet by mouth Daily. cholecalciferol (VITAMIN D-3) 1000 units TABS Take 1 tablet by mouth Daily. colchicine 0.6 mg tablet Take 2 tablets at first sign of gout flare, then 1 tablet ruby y as needed. docusate sodium (COLACE) 250 MG capsule Take 1 capsule by mouth 2 times daily. escitalopram (LEXAPRO) 10 mg tablet Take 1 tablet by mouth Daily. folic acid 1 mg tablet Take 1 tablet by mouth Daily. Glucose Blood (BLOOD GLUCOSE TEST STRIPS) STRP Use to check blood sugar twice daily. Dx E08.22 with long-term insulin use insulin aspart (NOVOLOG FLEXPEN) 100 units/mL injection pen Inject 4 times daily (befor e meals and at bedtime) per sliding scale: BG 0-149 = 0 units 150-200 = 2 units 201-250 = 4 units 251-300 = 6 units 301-350 = 8 units 351-400 = 10 units 401 or greater = 12 units and call provider 301-350 = 8 units 351-400 = 10 units insulin glargine (LANTUS) 100 units/mL injection (vial) 10 units every morning and 10 u nits every evening Insulin Syringe-Needle U-100 (SURE COMFORT INSULIN SYRINGE) 31G X 5/16" 0.3 ML MISC USE TO ADMINISTER LANTUS INSULIN TWO TIMES A DAY lisinopril (PRINIVIL, ZESTRIL) 20 mg tablet TAKE ONE TABLET BY MOUTH EVERY DAY magnesium hydroxide (MILK OF MAGNESIA) 400 mg/5 mL suspension Take 30 mLs by mouth Ruby y as needed. methotrexate 2.5 mg tablet Take 2 tablets by mouth Once a week. Indications: Rheumatoid Arthritis metoprolol succinate (TOPROL-XL) 100 mg ER tablet Take 1 tablet by mouth Daily. polyethylene glycol (MIRALAX) packet Take 1 diluted packet by mouth Daily as needed. rivaroxaban (XARELTO) 10 mg tablet Take 1 tablet by mouth Daily (with dinner). sodium phosphate (FLEET) enema Place 1 enema rectally Daily as needed for Constipation. UNCODED DME Bed rails for patient bed. UNCODED DME A wheelchair are medically indicated to assist with movement and proper rep ositioning to prevent decubiti. UNCODED DME A hospital bed medically indicated to assist with movement and proper repos itioning to prevent decubiti. ALLERGIES: Allergies Allergen Reactions Codeine Sulfate Nausea And Vomiting Darvon Nausea Only Estrogens Patient can't remember Pneumococcal Vaccines Swelling Thinks it was a Prevnar, arm became red/sore/swollen VITAL SIGNS: Temp: 35.4 C (95.8 F), Pulse: 62, Resp: 12, BP: 147/42, SpO2 97 % on room air at flow r ate L/min Temp Min: 35.4 C (95.8 F) Max: 35.4 C (95.8 F) Weight: 57.9 kg (127 lb 10.3 oz) PHYSICAL EXAMINATION: Gen Mckenzie - alert to , cooperative and no distress Head - Normocephalic, without obvious abnormality, atraumatic Eyes - PERRL, conjunctiva/corneas clear, EOM's intact both eyes ENT - mucous membranes moist Neck - supple Lungs - CTA bilat Heart - normal rate, irreg rhythm w/o m/r/g Abdomen - protuberant, Normoactive bowel sounds, non-tender non-distended Extremities - 2+ peripheral edema above bilateral ankles, no clubbing or cyanosis Skin - dry skin Neurologic - Alert and oriented x to person . CN II-XII intact. strength-moves all ext remities, Reflexes 2+ bilateral biceps, & patellar DIAGNOSTIC STUDIES: Available data and images were reviewed personally. Significant results and findings are a ddressed here or in the Assessment and Plan. Lab Results Component Value Date HGB 12.6 04/05/2019 HCT 38.4 04/05/2019 PLT 161 04/05/2019 WBC 11.5 (H) 04/05/2019 Lab Results Component Value Date NA 137 04/05/2019 K 4.0 04/05/2019 CL 102 04/05/2019 CO2 29 04/05/2019 CREA 0.90 04/05/2019 BUN 15 04/05/2019 PHOS 3.6 10/10/2018 Glucose, POC Date/Time Value Ref Range Status 07/13/2016 12:10 PM 283 (H) 70 - 150 mg/dL Final 07/12/2016 08:36 PM 175 (H) 70 - 150 mg/dL Final 07/12/2016 05:13 PM 123 70 - 150 mg/dL Final Ct Head Wo Contrast Result Date: 04/05/[address] 04/05/2019 9:16 PM CLINICAL HISTORY: Altered mental status altered ment al status (groggy) COMPARISON: CT June 2015 and more remote imaging TECHNIQUE: Axial u nenhanced images are performed through the head, along with coronal and sagittal reformation s. FINDINGS: At least mild, generalized atrophy and commensurate ex vacuo ventricular dila tion persist. Patchy hypoattenuation of the cerebral white matter is again evident. Barros-w jose david differentiation is maintained. The brainstem and cerebellum are unremarkable. There i s no mass effect, evidence of recent intracranial hemorrhage or extra-axial abnormality. He avily calcified plaque is again present within the terminal vertebral and internal carotid a rteries. Calcification persists in the basilar and proximal middle cerebral arteries as wel l. 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 There is hyperostosis frontalis. The b ones and soft tissues, including the imaged paranasal sinuses, middle ear cavities and masto id air cells, are otherwise unremarkable. 1. NO EVIDENCE OF ACUTE INTRACRANIAL DISEASE. 2. CEREBRAL ATROPHY WITH PROBABLE CHRONIC, MICROVASCULAR ISCHEMIC CHANGE OF THE WHITE MATTER, IN THE SETTING OF EXTENSIVE VASCULAR CALC IFICATION. Images were provided for interpretation on April 05, 2019 at 2125 hours. Result s were finalized at 2135 hours. Dictated and Signed by: Benedict Vigil MD Electronically sign ed: 04/05/2019 9:33 PM EKG: Reviewed independently by me. The tracing shows patient with ventricular rate of 58, left axis deviation, Q waves in leads II, III. ASSESSMENT and PLAN: Active Hospital Problems Diagnosis Dementia due to Alzheimer's disease UTI (urinary tract infection) Resolved Hospital Problems No resolved problems to display. Acute encephalopathy / chronic dementia: Patient with UTI. Will treat UTI with ceftriaxone . Follow-up on blood and urine cultures. Diabetes mellitus type 2: Continue Lantus. We will give sliding scale insulin Hypertension essential chronic we will continue outpatient medications Gentle IV fluids. Check electrolytes in a.m. Will give patient cardiac/diabetic diet DVT Prophylaxis SCDs Code Status Full Code CMS Documentation I certify that this admission will likely be greater than 2 midnights and posthospital disc harge will be to [facility] Total of 78 minutes were required to complete the admission process. Electronically signed by: Royal Avila MD 04/05/2019 11:08 PM [facility] documented in this enc ounter Consult Notes Brea Garcia RDN - 04/06/2019 10:47 AM PSTAssociated Order(s): IP CONSULT TO NUTRITION SERVICES NUTRITION THERAPY NOTE Summary Pt Was seen at after breakfast. She needs soft foods d/t no teeth or dentures. No rmally she is able to feed herself but required assistance with breakfast. SU[employer] has seen and only need some modification for texture d/t no teeth, no dysphagia. Estimated Energy and Protein Needs: (based on 58 kg) Kcal needs: 0205-1665 Kcals/day Protein needs:58-70 grams of protein/day Fluid goal:7720-4055 cc fluid per day Nutrition Plan of Care: Nutrition Diagnosis: Biting/chewing (masticatory) difficulty related to no dentures as darryl denced by need soft foods, weight was 140# 10 months ago, now at 127#, needs red tray Interventions: 1. Modified textures, health shakes 2. Red tray Nutrition Goals: 1. To meet nutritional needs 2. Provide soft foods Monitor: 1. Nutritional parameters 2. Tolerance to health shakes and texture F/u in 4 days. Available as needed, ext [phone] Assessment: Diet Order: For your reference, the current active diet order is: Diet consistent carb; dysphagia mechanical; thin liquids allowed; fat and cholesterol puma fied; Effective Now Intake 50% Labs: Recent Labs 04/06/19 0555 04/05/19 2115 NA 141 137 K 3.6 4.0 CL 107 102 BUN 11 15 CREA 0.67 0.90 ALBUMIN -- 3.5 Anthropometrics: Weight: 57.9 kg (127 lb 10.3 oz) Wt Readings from Last 3 Encounters: 04/06/19 57.9 kg (127 lb 10.3 oz) 05/31/18 63.5 kg (140 lb) 02/07/18 64.4 kg (142 lb) Body mass index is 20.6 kg/m. Weight change: First: 57.9 kg (04/05/192058)Last: 57.9 kg (04/06/1999)Difference: 0kg Electronically Signed by: Brea Garcia RDN 04/06/2019 11:59 AM d ocumented in this encounter ED Nik Gonzáles MD - 04/05/2019 9:07 PM PSTFormatting of this note might be different f rom the original. [facility] Alyson Lennon EMERGENCY DEPARTMENT ENCOUNTER NOTE [address] [place] [address] PCP:Francois Pascal MD CHIEF COMPLAINT Chief Complaint Patient presents with Altered Mental Status HPI Alyson Lennon is a 88 y.o. female who presents to the emergency department with altered m ental status. Patient lives in an adult foster care setting. Today the medics were contact ed and instructed to bring her to the ER. She is not at her normal level of mental status. She does have significant dementia. Is decreased interaction and responsiveness according to caregivers through the paramedics. No reported fever. She did have an episode of diarrh ea today. No cold symptoms. No rash. The patient has no specific complaints. PAST MEDICAL HISTORY Past Medical History: Diagnosis Date Arthritis CAD (coronary artery disease) Carotid stenosis CHF (congestive heart failure) ([facility]) Chronic kidney disease, stage III (moderate) ([facility]) DM type 2 (diabetes mellitus, type 2) ([facility]) 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 DVT (deep vein thrombosis) in Glossitis Gout H/O ventricular septal defect repair Hyperlipemia Hypertension 1979's Left ankle pain 07/30/2014 Myocardial infarction (HCC) (1994&1996) CAR with Hx of Myocardial infarction Old VT (myocardial infarction) OSTEOARTHRITIS, ANKLE, LEFT 01/21/2010 Osteoporosis Other abnormal clinical finding Verebral Compression Fractures Squamous carcinoma 12/05/2012 Vitamin D deficiency SURGICAL HISTORY Past Surgical History: Procedure Laterality Date BREAST BIOPSY Left 1974 CATARACT REMOVAL 2006 OU CHOLECYSTECTOMY 1986 CORONARY ARTERY BYPASS GRAFT 1996 Grafting for Coronary Artery Bypass x 3 vessels and VSD Patch FEMUR FRACTURE SURGERY Left 07/10/2016 Procedure: ORIF IM RODDING FEMORAL TROCHANTERIC NAIL; Surgeon: Ru Barbosa MD; Location: [facility] MAIN OR HIATAL HERNIA REPAIR 1984 ORIF Left Ankle Unstable Trimalleolar Fracture Dislocation 03/24/2009 Previous Inferior Vena Cava Filter CURRENT 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 allopurinol (ZYLOPRIM) 100 mg tablet TAKE ONE TABLET BY MOUTH TWICE A DAY aspirin (ASPIRIN EC) 81 MG EC tablet Take 1 tablet by mouth Daily. atorvaSTATin (LIPITOR) 40 mg tablet Take 1 tablet by mouth nightly. BD AUTOSHIELD DUO 30G X 5 MM MISC Use to inject insulin 4 times daily. bisacodyl (DULCOLAX) [address] 1 suppository rectally Daily as needed for Constipation. Calcium 500 MG TABS Take 1 tablet by mouth Daily. cholecalciferol (VITAMIN D-3) 1000 units TABS Take 1 tablet by mouth Daily. colchicine 0.6 mg tablet Take 2 tablets at first sign of gout flare, then 1 tablet ruby y as needed. docusate sodium (COLACE) 250 MG capsule Take 1 capsule by mouth 2 times daily. escitalopram (LEXAPRO) 10 mg tablet Take 1 tablet by mouth Daily. folic acid 1 mg tablet Take 1 tablet by mouth Daily. Glucose Blood (BLOOD GLUCOSE TEST STRIPS) STRP Use to check blood sugar twice daily. Dx E08.22 with long-term insulin use insulin aspart (NOVOLOG FLEXPEN) 100 units/mL injection pen Inject 4 times daily (befor e meals and at bedtime) per sliding scale: BG 0-149 = 0 units 150-200 = 2 units 201-250 = 4 units 251-300 = 6 units 301-350 = 8 units 351-400 = 10 units 401 or greater = 12 units and call provider 301-350 = 8 units 351-400 = 10 units insulin glargine (LANTUS) 100 units/mL injection (vial) 10 units every morning and 10 u nits every evening Insulin Syringe-Needle U-100 (SURE COMFORT INSULIN SYRINGE) 31G X 5/16" 0.3 ML MISC USE TO ADMINISTER LANTUS INSULIN TWO TIMES A DAY lisinopril (PRINIVIL, ZESTRIL) 20 mg tablet TAKE ONE TABLET BY MOUTH EVERY DAY magnesium hydroxide (MILK OF MAGNESIA) 400 mg/5 mL suspension Take 30 mLs by mouth Ruby y as needed. methotrexate 2.5 mg tablet Take 2 tablets by mouth Once a week. Indications: Rheumatoid Arthritis metoprolol succinate (TOPROL-XL) 100 mg ER tablet Take 1 tablet by mouth Daily. polyethylene glycol (MIRALAX) packet Take 1 diluted packet by mouth Daily as needed. rivaroxaban (XARELTO) 10 mg tablet Take 1 tablet by mouth Daily (with dinner). sodium phosphate (FLEET) enema Place 1 enema rectally Daily as needed for Constipation. [facility]ED [facility] Bed rails for patient bed. UNCODED DME A wheelchair are medically indicated to assist with movement and proper rep ositioning to prevent decubiti. UNCODED DME A hospital bed medically indicated to assist with movement and proper repos itioning to prevent decubiti. ALLERGIES Allergies Allergen Reactions Codeine Sulfate Nausea And Vomiting Darvon Nausea Only Estrogens Patient can't remember Pneumococcal Vaccines Swelling Thinks it was a Prevnar, arm became red/sore/swollen FAMILY HISTORY Family History Problem Relation Age of Onset Heart attack Mother possible VSD Heart disease Mother Heart disease Sister Other (see comment) Other family history of Airam's Disease Kidney disease Neg Hx SOCIAL HISTORY Social History Socioeconomic History Marital status: Spouse name: Sigrid Number of children: 2 Years of education: Not on file Highest education level: Not on file Occupational History Employer: RETIRED Tobacco Use Smoking status: Never Smoker Smokeless tobacco: Never Used Substance and Sexual Activity Alcohol use: No Alcohol/week: 0.0 standard drinks Drug use: No Social History Narrative Born in [facility] for [facility] years. and Remarried 2 sons local. Patient has never smoked. Alcohol Use - no Exercise: None Caffeine: Decaf only Living Situation: Lives with Sigrid REVIEW OF SYSTEMS All systems reviewed and found negative except what is in the HPI PHYSICAL EXAM VITAL SIGNS: (initial vital signs):Temp: 35.4 C (95.8 F) Pulse: 62 Resp: 12 SpO2: 97 % BP: 147/42 Body mass index is 20.6 kg/m. Constitutional: Well developed, elderly, frail, No acute distress, Non-toxic appearance. HENT: Normocephalic, Atraumatic, Bilateral external ears normal, Tympanic membranes normal , Mucous membranes are moist, Nasal mucosa is normal. Eyes: PERRL, EOMI, Conjunctiva normal, No discharge. Palpebral conjunctiva are pink. Neck: Normal range of motion, No tenderness, Supple, No stridor. Respiratory: Clear to auscultation bilaterally, No respiratory distress, No wheezing Chest: Non tender, no signs of trauma Cardiovascular: Irregularly irregular, I do not hear a murmur. GI: Soft, Non tenderness, No peritoneal signs, No masses Extremities: Warm and well perfused, no edema, no joint swelling or deformity. Good ROM. Back: No CVAT, No tenderness of the thoracic or lumbar spine. Skin: Warm, Dry, No erythema, No induration, No rash. Neurologic: Tired appearing, she does open her eyes when I say her name, No focal motor or sensory deficits. Speech is clear. Gait is not tested initially. She has not follow compl ex commands but does follow simple commands like opening her mouth and moving her arms and l egs. EKG Twelve-lead EKG shows atrial fibrillation with slow ventricular response at 58 bpm. There is a right bundle branch block. Q waves in leads 3 and aVF. Q waves in leads V1 through V5 . T-wave inversions in V1 through V6. No acute ST elevation or depression. Probable prior inferior VT. Probable prior anteroseptal VT. This is an abnormal EKG. Prior EKGs are ess entially unchanged compared to today. RADIOLOGY Portable chest x-ray: No acute cardiopulmonary disease Noncontrast head CT: IMPRESSION: 1. NO EVIDENCE OF ACUTE INTRACRANIAL DISEASE. 2. CEREBRAL ATROPHY WITH PROBABLE CHRONIC, MICROVASCULAR ISCHEMIC CHANGE OF THE WHITE MATTER, IN THE SETTING OF EXTENSIVE VASCULAR CALCIFICATION. ED COURSE & MEDICAL DECISION MAKING Pertinent Labs & Imaging studies reviewed. (See chart for details) The patient was seen and examined shortly after arriving in the emergency department. Hist ory and physical were obtained, vital signs were noted. CBC white count mildly elevated 11. 5. H&H and platelets are unremarkable. CMP is overall unremarkable. Glucose is mildly oziel vated at 205. Procalcitonin is undetectable. Lactate is normal. Troponin is normal. EKG is abnormal but stable compared to baseline. Influenza swab is negative. Head CT shows no acute process. Chest x-ray shows no acute process. Urinalysis is positive for infection. She is somnolent. Case discussed with the family and the hospitalist. Antibiotics started. She will be admitted to the hospital. Last Set of Vital Signs: Temp: 36.4 C (97.5 F) Pulse: 58 Resp: 18 SpO2: 97 % BP: 132/68 FINAL IMPRESSION 1. Urinary tract infection without hematuria, site unspecified 2. Somnolence 3. 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) PLAN Admit to the hospitalist service Nik Olea MD 04/06/19 0634 Maria Isabel Norwood RN - 04/05/2019 8:59 PM PSTPatient arrives via ambulance with report of altered mental status. Patient resides in an adult family home in [place]. Per EMS, caregiver at adult family home reports patient has "not been acting herself" today and has had diarrhea.Electronically sign ed by Maria Isabel Petersen RN at 04/05/2019 9:35 PM PSTdocumented in this encounter Miscellaneous Notes Plan of Care - [place] Jaime RN - 04/06/2019 11:58 AM PSTCase Management Assessment: CM to patient room for initial assessment. Patient alert and sitting quietly in bed. Patient's Sigrid ([phone]) and his son Roberto Carlos ([phone]) present and suppor tive at bedside. Assessment completed with patient's as patient with dementia and s eems to be non or minimally verbal. Discharge Planning: Alyson is a frail appearing 88 y.o. that resides at [facility] in [place], [place]. Per report, the patient is minimally verbal, requires assistance with all ADL's, is onl y able to iimry-aauxu-whaipork and ambulate a few steps at baseline. The adult family home manages all of the patient's medications. Options for discharge discussed. Patient's family feels that she is getting appropriat e care at the adult [facility] home and deny need for home health or snf services. Patient's family deny any additional questions, concerns, or needs regarding anticipated pl an to return to [facility]. Roberto Carlos states that he will contact the Theresa, drier operator helper of a , to inform of plan for discharge today and set up transport. She will be available after 1430 today, so time set for 1500. RN and RELEASE MANAGER informed. Patient's caregiver/drier operator helper of the adult [facility], Theresa Stephens ([phone]) bebe quijano provide transportation. Disposition: Plan A: Return to [facility], transport at 1500 Electronically signed by: [place] Jaime RN 04/06/2019 12:03 PM lan of Care - Amita Galvez, Speech Pathologist - 04/06/2019 10:34 AM PSTFormatting of this note might be di fferent from the original. Speech Therapy OPIB Plan of Care Initial Evaluation, Discharge Note Patient Name: Alyson Lennon Date of Onset of Illness/Injury or Date of Surgery: 04/06/19 Start of Care/Start of Certification Date: 04/06/2019 End of Certification Date: 04/06/2019 Summary: 88 y.o. female with past medical history of diabetes mellitus type 2, dementia, HTN, who presented with altered mental status and is being treated for UTI. Per family, brigido ent eats soft foods at baseline and is edentulous. [employer] completed bedside swallow evaluation and recommend dysphagia mechanical soft textures, with thin liquids, and pills floated in pu ree. Moderate oral dysphagia characterized by increased time needed for bolus transport/init iation. Pharyngeal phase appeared intact; no s/sx of dysphagia. No skilled therapy needed at this time as patient appears to be at baseline swallow function/texture. Non Instrumental/Clinical Swallow Exam Consistencies Trialed: thin liquids, puree, solid Thin Liquid - Bedside Swallowing Mode of Presentation: straw Volume(s) Presented (mL): patient controlled volumes Oral Phase Results: intact oral phase without signs of dysfunction Pharyngeal Phase Results: safe swallow, no signs/symptoms of aspiration or penetration Puree - Bedside Swallowing Mode of Presentation: fed by clinician, spoon Volume(s) Presented (mL): 5 mL Oral Phase Results: impaired oral phase, signs of dysfunction present(delayed bolus transpo rt intermittently) Pharyngeal Phase Results: safe swallow, no signs/symptoms of aspiration or penetration Solid - Bedside Swallowing Comments: mechanical soft Mode of Presentation: fed by clinician, spoon Volume(s) Presented (mL): 5 mL, 10 mL Oral Phase Results: impaired oral phase, signs of dysfunction present(prolonged oral stage with intermittent minimal residue and delayed initiation of swallow) Pharyngeal Phase Results: safe swallow, no signs/symptoms of aspiration or penetration Oral Motor Structure and Function Oral Motor Structure and Function General Structure & Function: functional, impaired Dentition Assessment: edentulous, does not have dentures Secretion Management: WNL/WFL Mucosal Quality: good Velar Elevation: WNL (within normal limits) Volitional Cough: no issues initiating volitional cough Oral Musculature General Assessment: WFL (within functional limits) Identified Problems Needing Skilled Intervention: Oral dysphagia secondary to being edentul ous Speech Language Pathology Discharge Recommendations are: Recommended discharge disposition: adult foster home Post discharge speech language pathology recommendation: no further Speech Therapy Planned Interventions: (no skilled SUPER[employer]OR [employer] needs at this time) Recommended Frequency: one time visit Patient Status/Goals: Reflects last filed data and may be from multiple contributors. Dysphagia Goal Most Recent Value STG Status new, met at 04/06/2019 1035 STG Pt will participate in bedside swallow function. at 04/06/2019 1035 [employer]PER[employer]OR [employer]OUN[employer] Time Calculation SUPERVISOR [employer]OUN[employer] Individual Start Time: 1020 SUPERVISOR [employer]OUNDS Individual Stop Time: 1034 SUPERVISOR [employer]OUN[employer] Individual Total Time: 14 [employer]PER[employer]OR [employer] Missed Treatment Time: 0 SUPERVISOR [employer]OUN[employer] Total Treatment Time: 14 Timed TX Code Minutes: 0 Electronically signed by: Amita Galvez, Speech Pathologist, 04/06/2019 11:24 AM Somnolence [R40.0] Urinary tract infection without hematuria, site unspecified [N39.0] 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) [G30.9, F02.80] lan of Care - Cindy Mar RN - 04/06/2019 4:29 AM PSTPt arrived from ER around 0045, report from Maria Isabel, all questions answered. Pt is A&O X1, disoriented to place, time and situation at baseline. Bradycardic at times (baseline per PM Hx), otherwise VSS. Non-verbal indicators of pain not present. IV patent and infusing IVF. N o OOB this shift, bed bound per report. Incontinent of both bowels and urine, urine culture taken. Foam dressing to coccyx due to bony prominence close to surface and skin breakdown in area, CDI. 2+ edema to LLE, 1+ to RLE. Noted that pt has hardened skin under surface of RLQ and LLQ of abdomen, also documented in MD's noted, unsure of cause. Pt received SSI on BENJIE due to this, no issues. Bowel tones hypoactive. Pt does not call appropriately, absent of f alls. Frequent purposeful monitoring performed, will continue to monitor .Electronically sig marycruz by Cindy Mar, DEISY at 04/06/2019 4:35 AM PSTdocumented in this encounter Plan of [...] | | | | | | [place] [id number] | | | | | | [phone] | | | | | | | | +--------+---------+ + + + documented as of this encounter Procedures + +--------+ + + + | Procedure Name | Priori | Date/Time | Associated Diagnosis | Comments | | | ty | | | | + +--------+ + + + | POC GLUCOSE | Routin | 04/06/2019 | | Results for this | | | e | 12:12 PM | | procedure are in the | | | | PST | | results section. | + +--------+ + + + | POC GLUCOSE | Routin | 04/06/2019 | | Results for this | | | e | 6:38 AM | | procedure are in the | | | | PST | | results section. | + +--------+ + + + | CBC NO DIFFERENTIAL | Routin | 04/06/2019 | | Results for this | | | e | 5:55 AM | | procedure are in the | | | | PST | | results section. | + +--------+ + + + | BASIC METABOLIC | Routin | 04/06/2019 | | Results for this | | PANEL | e | 5:55 AM | | procedure are in the | | | | PST | | results section. | + +--------+ + + + | POC GLUCOSE | Routin | 04/06/2019 | | Results for this | | | e | 2:23 AM | | procedure are in the | | | | PST | | results section. | + +--------+ + + + | URINALYSIS WITH | STAT | 04/05/2019 | | Results for this | | MICROSCOPIC WITH | | 10:14 PM | | procedure are in the | | CULTURE IF INDICATED | | PST | | results section. | + +--------+ + + + | CULTURE, BLOOD | STAT | 04/05/2019 | | Results for this | | | | 10:14 PM | | procedure are in the | | | | PST | | results section. | + +--------+ + + + | CULTURE, URINE | STAT | 04/05/2019 | | Results for this | | | | 10:14 PM | | procedure are in the | | | | PST | | results section. | + +--------+ + + + | INFLUENZA A AND B | Routin | 04/05/2019 | | Results for this | | RNA, NAAT | e | 9:48 PM | | procedure are in the | | | | PST | | results section. | + +--------+ + + + | XR CHEST AP PORTABLE | STAT | 04/05/2019 | | Results for this | | | | 9:30 PM | | procedure are in the | | | | PST | | results section. | + +--------+ + + + | CT HEAD WO CONTRAST | STAT | 04/05/2019 | | Results for this | | | | 9:23 PM | | procedure are in the | | | | PST | | results section. | + +--------+ + + + | PROCALCITONIN, SERUM | STAT | 04/05/2019 | | Results for this | | | | 9:15 PM | | procedure are in the | | | | PST | | results section. | + +--------+ + + + | TROPONIN I | Add-On | 04/05/2019 | | Results for this | | | | 9:15 PM | | procedure are in the | | | | PST | | results section. | + +--------+ + + + | CULTURE, BLOOD | STAT | 04/05/2019 | | Results for this | | | | 9:15 PM | | procedure are in the | | | | PST | | results section. | + +--------+ + + + | CBC WITH | STAT | 04/05/2019 | | Results for this | | DIFFERENTIAL | | 9:15 PM | | procedure are in the | | | | PST | | results section. | + +--------+ + + + | LACTIC ACID | STAT | 04/05/2019 | | Results for this | | | | 9:15 PM | | procedure are in the | | | | PST | | results section. | + +--------+ + + + | COMPREHENSIVE | STAT | 04/05/2019 | | Results for this | | METABOLIC PANEL | | 9:15 PM | | procedure are in the | | | | PST | | results section. | + +--------+ + + + | ECG 12 LEAD | STAT | 04/05/2019 | | Results for this | | | | 9:08 PM | | procedure are in the | | | | PST | | results section. | + +--------+ + + + documented in this encounter Results POC Glucose (04/06/2019 12:12 PM PST) + +---------+ + + + | Component | Value | Ref Range | Performed | Pathologist | | | | | At | Signature | + +---------+ + + + | Glucose, | 152 (H) | 70 - 109 mg/dL | [facility] | | | POC [...] [address] | [place] | [phone] | | [facility] | | [address] | | | - LABORATORY | | | | + + + + + POC Glucose (04/06/2019 6:38 AM PST) + +---------+ + + + | Component | Value | Ref Range | Performed | Pathologist | | | | | At | Signature | + +---------+ + + + | Glucose, | 137 (H) | 70 - 109 mg/dL | [facility] | | | POC [...] [address] | [place] | [phone] | | [facility] | | [address] | | | - LABORATORY | | | | + + + + + Basic Metabolic Panel (04/06/2019 5:55 AM PST) + + + + + + | Component | Value | Ref Range | Performed | Pathologist | | | | | At | Signature | + + + + + + | Na | 141 | 136 - 145 | [facility] | | | | | mmol/L | [facility] | | | | | | [facility] | | | | | | CENTER - | | | | | | LABORATORY | | + + + + + + | K | 3.6 | 3.4 - 5.1 | [facility] | | | | | mmol/L | [facility] | | | | | | [facility] | | | | | | CENTER - | | | | | | LABORATORY | | + + + + + + | Cl | 107 | 98 - 107 mmol/L | [facility] | | | | | | [facility] | | | | | | [facility] | | | | | | CENTER - | | | | | | LABORATORY | | + + + + + + | CO2 | 27 | 20 - 31 mmol/L | [facility] | | [...] + | Glucose | 155 (H) | 60 - 106 mg/dL | [facility] | | | | | | [facility] | | | | | | [facility] | | | | | | CENTER - | | | | | | LABORATORY | | + + + + + + | BUN | 11 | 9 - 23 mg/dL | [facility] | | | | | | [facility] | | | | | | [facility] | | | | | | CENTER - | | | | | | LABORATORY | | + + + + + + | Creatinine | 0.67 | 0.55 - 1.02 | [facility] | | | | | mg/dL | [facility] | | | | | | MEDICAL | | | | | | CENTER - | | | | | | LABORATORY | | + + + + + + | eGFR if not | >60Comment: GLOMERULAR | >=60 | [facility] | | | | FILTRATION | mL/min/1.73m2 | [facility] | | | [place] | RATE,ESTIMATED | | MEDICAL | | | | mL/min/1.50o6Buvp than | | CENTER - | | [...] + + + + | Calcium | 9.4 | 8.7 - 10.4 | [facility] | | | | | mg/dL | [facility] | | | | | | [facility] | | | | | | CENTER - | | | | | | LABORATORY | | + + + + + + | BUN/Creatin | 16.4 | | [facility] | | | ine [...] [address] | [place] | [phone] | | [facility] | | [address] | | | - LABORATORY | | | | + + + + + CBC no Differential (04/06/2019 5:55 AM PST) + + + + + + | Component | Value | Ref Range | Performed | Pathologist | | | | | At | Signature | + + + + + + | White Blood | 11.4 (H) | 4.0 - 11.0 K/uL | [facility] | | | Cells | | | [facility] | | | | | | [facility] | | | | | | CENTER - | | | | | | LABORATORY | | + + + + + + | Red Blood | 3.90 | 3.70 - 5.20 | [facility] | | | Cells | | M/uL | [facility] | | | | | | MEDICAL | | | | | | CENTER - | | | | | | LABORATORY | | + + + + + + | Hemoglobin | 12.6 | 11.5 - 16.0 | [facility] | | | | | g/dL | [facility] | | | | | | [facility] | | | | | | CENTER - | | | | | | LABORATORY | | + + + + + + | Hematocrit | 38.7 | 34.0 - 47.0 % | [facility] | | | | | | [facility] | | | | | | [facility] | | | | | | CENTER - | | | | | | LABORATORY | | + + + + + + | MCV | 99.2 | 83.0 - 101.0 fL | [facility] | | | | | | [facility] | | | | | | [facility]ICAL | | | | | | CENTER - | | | | | | LABORATORY | | + + + + + + | MCH | 32.3 | 28.0 - 35.0 pg | [facility] | | | | | | [facility] | | | | | | [facility]ICAL | | | | | | CENTER - | | | | | | LABORATORY | | + + + + + + | MCHC | 32.6 | 32.0 - 36.0 | [facility] | | | | | g/dL | [facility] | | | | | | MEDICAL | | | | | | CENTER - | | | | | | LABORATORY | | + + + + + + | RDW-CV | 14.2 | <15.0 % | [facility] | | | | | | [facility] | | | | | | [facility]ICAL | | | | | | CENTER - | | | | | | LABORATORY | | + + + + + + | RDW-SD | 51.7 (H) | 35.1 - 46.3 fL | [facility] | | | | | | [facility] | | [facility] | | | [facility]ICAL | | | | | | CENTER - | | | | | | LABORATORY | | + + + + + + | Platelet | 153 | 140 - 440 K/uL | [facility] | | | Count | | | [facility] | | | | | | MEDICAL | | | | | | CENTER - | | | | | | LABORATORY | | + + + + + + | MPV | 11.3 | 6.5 - 12.4 fL | [facility] | | | | | | [facility] | | | | | | MEDICAL | | | | | | CENTER - | | | | | | LABORATORY | | + + + + + + | % nRBC | 0 | 0 - 2 per 100 | [facility] | | | | | WBCs | [facility] | | | | | | MEDICAL | | | | | | CENTER - | | | | | | LABORATORY | | + + + + + + | Absolute | 0.00 | 0.00 - 0.01 | [facility] | | | nRBC | | K/uL | [facility] | [...] + | [facility] | [address] | [place] | [phone] | | [facility] | | [address] | | | - LABORATORY | | | | + + + + + POC Glucose (04/06/2019 2:23 AM PST) + +---------+ + + + | Component | Value | Ref Range | Performed | Pathologist | | | | | At | Signature | + +---------+ + + + | Glucose, | 148 (H) | 70 - 109 mg/dL | [facility] | | | POC | | | [...] + | [facility] | [address] | [place] | [phone] | | [facility] | | [address] | | | - LABORATORY | | | | + + + + + Culture, Urine (04/05/2019 10:14 PM PST) + + + + + + | Component | Value | Ref Range | Performed | Pathologist | | | | | At | Signature | + + + + + + | Culture | >100,000 CFU/ml | | [facility] | | | | Escherichia coli | | [facility] | | | | | | MEDICAL | | | | | | CENTER - | | | | | | LABORATORY | | + + + + + + + + | Specimen | + + | Urine - Urine | | specimen (specimen) | + + + + +--------+ + | Organism | Antibiotic | Method | Susceptibility | + + +--------+ + | Escherichia coli | Cefazolin | | <=4 ug/mL: | | | | | Sensitive | + + +--------+ + | Escherichia coli | Cefoxitin | | <=4 ug/mL: | | | | | Sensitive | + + +--------+ + | Escherichia coli | Ceftazidime | | <=1 ug/mL: | | | | | Sensitive | + + +--------+ + | Escherichia coli | Ceftriaxone | | <=1 ug/mL: | | | | | Sensitive | + + +--------+ + | Escherichia coli | Ciprofloxacin | | 1 ug/mL: Sensitive | + + +--------+ + | Escherichia coli | Ertapenem | | <=0.5 ug/mL: | | | | | Sensitive | + + +--------+ + | Escherichia coli | Gentamicin | | <=1 ug/mL: | | | | | Sensitive | + + +--------+ + | Escherichia coli | Meropenem | | <=0.25 ug/mL: | | | | | Sensitive | + + +--------+ + | Escherichia coli | Nitrofurantoin | | <=16 ug/mL: | | | | | Sensitive | + + +--------+ + | Escherichia coli | Tobramycin | | <=1 ug/mL: | | | | | Sensitive | + + +--------+ + | Escherichia coli | Trimethoprim + | | <=20 ug/mL: | | | Sulfamethoxazole | | Sensitive | + + +--------+ + + + + + + | Performing | Address | City/State/Zipcode | Phone Number | | Organization | | | | + + + + + | [facility] | [address] | [place] | [phone] | | [facility] | | [address] | | | - LABORATORY | | | | + + + + + Urinalysis with Microscopic with Culture if Indicated (04/05/2019 10:14 PM PST) + + + + + + | Component | Value | Ref Range | Performed | Pathologist | | | | | At | Signature | + + + + + + | Color, | Gavi (A) | Light Yellow, | [facility] | | [...] + + + | pH, Urine | 5.0 | 5.0 - 8.0 | [facility] | | | | | | [facility] | | | | | | MEDICAL | | | | | | CENTER - | | | | | | LABORATORY | | + + + + + + | Specific | 1.017 | 1.001 - 1.030 | [facility] | | | [place], | | | [facility] | | [...] + + + + | Blood, | Small (A) | Negative | [facility] | | [...] + + + + | Leukocyte | Large (A) | Negative | [facility] | | | Esterase, | | | [facility] | | | Urine | | | MEDICAL | | | | | | CENTER - | | | | | | LABORATORY | | + + + + + + | Urobilinoge | 2.0 mg/dL (A) | 0.2 mg/dL, 1.0 | [facility] | | | n, Urine | | mg/dL, Negative | [facility] | | | | | | MEDICAL | | | | | | CENTER - | | | | | | LABORATORY | | + + + + + + | White Blood | >100 (A) | 0 - 2 /HPF | [facility] | | | Cells, | | | [facility] | | | Urine | | | MEDICAL | | | | | | CENTER - | | | | | | LABORATORY | | + + + + + + | White Blood | Many (A) | None Seen /HPF | [facility] | | | Cell | | | [facility] | | | Clumps, | | | MEDICAL | | | [...] + + + + | Bacteria, | 4+ (A) | Negative /HPF | [facility] | [...] + + | Urine | Urine Culture Set Up | | [facility] | | | Comment | | | [facility] | | | | | | MEDICAL | | | | | | CENTER - | | | | | | LABORATORY | | + + + + + + + + | Specimen | + + | Urine - Urine | | specimen obtained | | via indwelling | | urinary catheter | | (specimen) | + + + + + + + | Performing | Address | City/State/Zipcode | Phone Number | | Organization | | | | + + + + + | [facility] | [address] | [place] | [phone] | | [facility] | | [address] | | | - LABORATORY | | | | + + + + + Culture, Blood (04/05/2019 10:14 PM PST) + + + + + + | Component | Value | Ref Range | Performed | Pathologist | | | | | At | Signature | + + + + + + | Culture | No growth after 5 days | | [facility] | | | | incubation. | | [facility] | | | [...] [address] | [place] | [phone] | | [facility] | | [address] | | | - LABORATORY | | | | + + + + + Influenza A and B RNA, NAAT (04/05/2019 9:48 PM PST) + + + + + + | Component | Value | Ref Range | Performed | Pathologist | | | | | At | Signature | + + + + + + | Influenza A | Negative | Negative, Test | [facility] | | | PCR | | not performed | [facility] | | | | | | [facility] | | | | | | CENTER - | | | | | | LABORATORY | | + + + + + + | Influenza B | Negative | Negative, Test | [facility] | | | PCR | | not performed | [facility] | | | | | | MEDICAL | | | | | | CENTER - | | | | | | LABORATORY | | + + + + + + + + | Specimen | + + | Tissue - Entire | | nasopharynx (body | | structure) | + + + + + + + | Performing | Address | City/State/Zipcode | Phone Number | | Organization | | | | + + + + + | [facility] | [address] | [place] | [phone] | | [facility] | | [address] | | | - LABORATORY | | | | + + + + + XR Chest AP Portable (04/05/2019 9:30 PM PST) + + | Specimen | + + | | + + + + + | Impressions | Performed At | + + + | No acute findings. Cardiomegaly. Dictated and Signed by: | [facility] | | James Johnson MD Electronically signed: 04/06/2019 8:29 AM | | + + + + + + | Narrative | Performed At | + + + | XR CHEST AP PORTABLE 04/05/2019 9:29 PM HISTORY: altered mental | [facility] | | status. COMPARISON: Multiple priors. Findings: Sternotomy | | | wires are present. The heart is enlarged. There is atherosclerosis of | | | the aorta. Mediastinum demonstrates no acute findings. Central | | | pulmonary vasculature is normal. The bilateral lungs are clear with | | | no evidence for pleural effusion or pneumothorax. There is an old | | | fracture of right rib 8 laterally. Mild levoscoliosis of the | | | thoracolumbar spine is noted along with moderate spondylosis. Clips | | | are in the left chest and right abdomen. | | + + + + + | Procedure Note | + + | Al, Rad Results In - 04/06/2019 8:32 AM PST XR CHEST AP PORTABLE 04/05/2019 9:29 PM | | | | HISTORY: altered mental status. | | | | COMPARISON: Multiple priors. | | | | Findings: | | Sternotomy wires are present. The heart is enlarged. There is atherosclerosis of | | the aorta. Mediastinum demonstrates no acute findings. Central pulmonary | | vasculature is normal. The bilateral lungs are clear with no evidence for | | pleural effusion or pneumothorax. There is an old fracture of right rib 8 | | laterally. Mild levoscoliosis of the thoracolumbar spine is noted along with | | moderate spondylosis. Clips are in the left chest and right abdomen. | | | | IMPRESSION: | | No acute findings. | | | | Cardiomegaly. | | | | Dictated and Signed by: James Johnson MD | | Electronically signed: 04/06/2019 8:29 AM | + + + +---------+ + + | Performing | Address | City/State/Zipcode | Phone Number | | Organization | | | | + +---------+ + + | [facility] | | | | + +---------+ + + CT Head wo Contrast (04/05/2019 9:23 PM PST) + + | Specimen | + + | | + + + + + | Impressions | Performed At | + + + | 1. NO EVIDENCE OF ACUTE INTRACRANIAL DISEASE. 2. CEREBRAL | [facility] | | ATROPHY WITH PROBABLE CHRONIC, MICROVASCULAR ISCHEMIC CHANGE OF THE | | | WHITE MATTER, IN THE SETTING OF EXTENSIVE VASCULAR CALCIFICATION. | | | Images were provided for interpretation on April 05, 2019 at 2125 | | | hours. Results were finalized at 2135 hours. Dictated and Signed | | | by: Benedict Vigil MD Electronically signed: 04/05/2019 9:33 PM | | + + + + + + | Narrative | Performed At | + + + | UNENHANCED HEAD CT 04/05/2019 9:16 PM CLINICAL HISTORY: Altered | [facility] | | mental status altered mental status (groggy) COMPARISON: | | | CT June 2015 and more remote imaging TECHNIQUE: Axial unenhanced | | | images are performed through the head, along with coronal and | | | sagittal reformations. FINDINGS: At least mild, generalized | | | atrophy and commensurate ex vacuo ventricular dilation persist. | | | Patchy hypoattenuation of the cerebral white matter is again | | | evident. Barros-white differentiation is maintained. The brainstem | | | and cerebellum are unremarkable. There is no mass effect, evidence | | | of recent intracranial hemorrhage or extra-axial abnormality. | | | Heavily calcified plaque is again present within the terminal | | | vertebral and internal carotid arteries. Calcification persists in | | | the basilar and proximal middle cerebral arteries as well. 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 There is | | | hyperostosis frontalis. The bones and soft tissues, including the | | | imaged paranasal sinuses, middle ear cavities and mastoid air cells, | | | are otherwise unremarkable. | | + + + + + | Procedure Note | + + | Al, Rad Results In - 04/05/2019 9:36 PM PST UNENHANCED HEAD CT 04/05/2019 9:16 PM | | | | CLINICAL HISTORY: Altered mental status | | altered mental status (groggy) | | | | COMPARISON: CT June 2015 and more remote imaging | | | | TECHNIQUE: Axial unenhanced images are performed through the head, along with | | coronal and sagittal reformations. | | | | FINDINGS: At least mild, generalized atrophy and commensurate ex vacuo | | ventricular dilation persist. Patchy hypoattenuation of the cerebral white | | matter is again evident. Barros-white differentiation is maintained. The | | brainstem and cerebellum are unremarkable. There is no mass effect, evidence of | | recent intracranial hemorrhage or extra-axial abnormality. Heavily calcified | | plaque is again present within the terminal vertebral and internal carotid | | arteries. Calcification persists in the basilar and proximal middle cerebral | | arteries as well. 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 There is | | hyperostosis frontalis. The bones and soft tissues, including the imaged | | paranasal sinuses, middle ear cavities and mastoid air cells, are otherwise | | unremarkable. | | | | IMPRESSION: | | 1. NO EVIDENCE OF ACUTE INTRACRANIAL DISEASE. | | | | 2. CEREBRAL ATROPHY WITH PROBABLE CHRONIC, MICROVASCULAR ISCHEMIC CHANGE OF THE | | WHITE MATTER, IN THE SETTING OF EXTENSIVE VASCULAR CALCIFICATION. | | | | Images were provided for interpretation on April 05, 2019 at 2125 hours. | | Results were finalized at 2135 hours. | | | | Dictated and Signed by: Benedict Vigil MD | | Electronically signed: 04/05/2019 9:33 PM | + + + +---------+ + + | Performing | Address | City/State/Zipcode | Phone Number | | Organization | | | | + +---------+ + + | [facility] | | | | + +---------+ + + Troponin I (04/05/2019 9:15 PM PST) + + + + + + | Component | Value | Ref Range | Performed | Pathologist | | | | | At | Signature | + + + + + + | Troponin I | 0.01Comment: | <0.06 ng/mL | [facility] | | | | Comment:Reference | | [facility] | | | | Ranges: 0.00-0.06 = | | MEDICAL | | | | NORMAL >0.06 = | | CENTER - | | | | SUSPICIOUS FOR | | LABORATORY | | | | MYOCARDIAL DAMAGE NOTE: | | | | | | Values greater than | | | | | | 0.78 ng/mL have been | | | | | | shown to be strongly | | | | | | associated with acute | | | | | | myocardial infarction. | | | | | | The [employer] | | | | | | Cardiology (ACC) | | | | | | recommends a decision | | | | | | limit of 0.06 ng/mL for | | | | | | this assay. Results | | | | | | greater than 0.06 can | | | | | | reflect a pre-infarct | | | | | | acute coronary syndrome, | | | | | | but can also reflect | | | | | | myocardial necrosis or | | | | | | injury that is not due | | | | | | to coronary artery | | | | | | disease. Some of these | | | | | | causes are sepsis, | | | | | | hypocolemia, atrial | | | | | | fibrillation, heart | | | | | | failure, pulmonary | | | | | | embolism, myocarditis, | | | | | | myocardial contusion, | | | | | | and renal failure. The | | | | | | diagnosis of myocardial | | | | | | infarction should be | | | | | | based on a combination | | | | | | of the patient's | | | | | | clinical presentation | | | | | | and the clinical | | | | | | laboratory test results | | | | | | (especially serial | | | | | | troponin levels). | | | | + + + + + + + + | Specimen | + + | Blood | + + + + + + + | Performing | Address | City/State/Zipcode | Phone Number | | Organization | | | | + + + + + | [facility] | [address] | [place] | [phone] | | [facility] | | [address] | | | - LABORATORY | | | | + + + + + Lactic Acid (04/05/2019 9:15 PM PST) + +-------+ + + + | Component | Value | Ref Range | Performed | Pathologist | | | | | At | Signature | + +-------+ + + + | Lactate | 1.8 | 0.5 - 2.2 | [facility] | | | | | [...] [address] | [place] | [phone] | | [facility] | | [address] | | | - LABORATORY | | | | + + + + + Procalcitonin (04/05/2019 9:15 PM PST) + + + + + + | Component | Value | Ref Range | Performed | Pathologist | | | | | At | Signature | + + + + + + | Procalciton | <0.05 | <=0.50 ng/mL | [facility] | | | in | | | [facility] | | | | | | MEDICAL | | | | | | CENTER - | | | | | | LABORATORY | | + + + + + + | Comment | Comment: < 0.50 | | [facility] | | | | ng/mL:Procalcitonin | | [facility] | | | | levels below 0.50 ng/mL | | MEDICAL | | | | on the first day of | | CENTER - | | | | admission represents a | | LABORATORY | | | | low risk for progression | | | | | | to severe sepsis and/or | | | | | | septic shock, however | | | | | | these do not exclude an | | | | | | infection, because | | | | | | localized infections | | | | | | (without systemic signs) | | | | | | may also be associated | | | | | | with such low levels. | | | | | | > 2.00 | | | | | | ng/mL:Procalcitonin | | | | | | levels above 2.00 ng/mL | | | | | | on the first day of | | | | | | admission represents a | | | | | | high risk for | | | | | | progression to severe | | | | | | sepsis and/or septic | | | | | | shock. If the | | | | | | procalcitonin | | | | | | measurement is performed | | | | | | shortly after the | | | | | | systemic infection | | | | | | process has started | | | | | | (usually less than 6 | | | | | | hours), these values may | | | | | | still be low. As | | | | | | various non-infectious | | | | | | conditions are known to | | | | | | induce procalcitonin as | | | | | | well, procalcitonin | | | | | | levels between 0.50 | | | | | | ng/mL and 2.00 ng/mL | | | | | | should be reviewed | | | | | | carefully to take into | | | | | | account the specific | | | | | | clinical background and | | | | | | condition(s) of the | | | | | | individual patient. | | | | + + + + + + + + | Specimen | + + | Blood | + + + + + + + | Performing | Address | City/State/Zipcode | Phone Number | | Organization | | | | + + + + + | [facility] | [address] | [place] | [phone] | | [facility] | | [address] | | | - LABORATORY | | | | + + + + + Comprehensive Metabolic Panel (04/05/2019 9:15 PM PST) + + + + + + | Component | Value | Ref Range | Performed | Pathologist | | | | | At | Signature | + + + + + + | Na | 137 | 136 - 145 | [facility] | | | | | mmol/L | [facility] | | | | | | MEDICAL | | | | | | CENTER - | | | | | | LABORATORY | | + + + + + + | K | 4.0 | 3.4 - 5.1 | [facility] | | | | | mmol/L | [facility] | | | | | | MEDICAL | | | | | | CENTER - | | | | | | LABORATORY | | + + + + + + | Cl | 102 | 98 - 107 mmol/L | [facility] | | | | | | [facility] | | | | | | MEDICAL | | | | | | CENTER - | | | | | | LABORATORY | | + + + + + + | CO2 | 29 | 20 - 31 mmol/L | [facility] | | [...] + + + + | Glucose | 205 (H) | 60 - 106 mg/dL | [facility] | | | | | | [facility] | | | | | | MEDICAL | | | | | | CENTER - | | | | | | LABORATORY | | + + + + + + | BUN | 15 | 9 - 23 mg/dL | [facility] | | | | | | [facility] | | | | | | MEDICAL | | | | | | CENTER - | | | | | | LABORATORY | | + + + + + + | Creatinine | 0.90 | 0.55 - 1.02 | [facility] | | | | | mg/dL | [facility] | | | | | | MEDICAL | | | | | | CENTER - | | | | | | LABORATORY | | + + + + + + | eGFR if not | 59 (L)Comment: | >=60 | [facility] | | | | GLOMERULAR FILTRATION | mL/min/1.73m2 | [facility] | | | [place] | RATE,ESTIMATED | | MEDICAL | | | | mL/min/1.30v1Fudx than | | CENTER - | | [...] + + + + | Calcium | 9.0 | 8.7 - 10.4 | [facility] | | | | | mg/dL | [facility] | | | | | | [facility] | | | | | | CENTER - | | | | | | LABORATORY | | + + + + + + | Albumin | 3.5 | 3.2 - 4.8 g/dL | [facility] | | | | | | [facility] | | | | | | MEDICAL | | | | | | CENTER - | | | | | | LABORATORY | | + + + + + + | Bilirubin | 0.3 | 0.3 - 1.2 mg/dL | [facility] | | | Total | | | [facility] | | | | | | MEDICAL | | | | | | CENTER - | | | | | | LABORATORY | | + + + + + + | Total | 6.2 | 5.7 - 8.2 g/dL | [facility] | | | Protein | | | [facility] | | | | | | MEDICAL | | | | | | CENTER - | | | | | | LABORATORY | | + + + + + + | AST | 18 | 0 - 34 U/L | [facility] | | | | | | [facility] | | | | | | MEDICAL | | | | | | CENTER - | | | | | | LABORATORY | | + + + + + + | ALT | 12 | 10 - 49 U/L | [facility] | | | | | | [facility] | | | | | | MEDICAL | | | | | | CENTER - | | | | | | LABORATORY | | + + + + + + | Alkaline | 68 | 46 - 116 U/L | [facility] | | | Phosphatase [...] + + + + | Albumin/Kalani | 1.3 | 0.8 - 1.9 | [facility] | | | bulin Ratio | | | [facility] | | | | | | MEDICAL | | | | | | CENTER - | | | | | | LABORATORY | | + + + + + + | BUN/Creatin | 16.7 | | [facility] | | | ine [...] [address] | [place] | [phone] | | [facility] | | [address] | | | - LABORATORY | | | | + + + + + CBC with Differential (04/05/2019 9:15 PM PST) + + + + + + | Component | Value | Ref Range | Performed | Pathologist | | | | | At | Signature | + + + + + + | White Blood | 11.5 (H) | 4.0 - 11.0 K/uL | [facility] | | | Cells | | | [facility] | | | | | | MEDICAL | | | | | | CENTER - | | | | | | LABORATORY | | + + + + + + | Red Blood | 3.84 | 3.70 - 5.20 | [facility] | | | Cells | | M/uL | [facility] | | | | | | MEDICAL | | | | | | CENTER - | | | | | | LABORATORY | | + + + + + + | Hemoglobin | 12.6 | 11.5 - 16.0 | [facility] | | | | | g/dL | [facility] | | | | | | MEDICAL | | | | | | CENTER - | | | | | | LABORATORY | | + + + + + + | Hematocrit | 38.4 | 34.0 - 47.0 % | [facility] | | | | | | [facility] | | | | | | MEDICAL | | | | | | [facility] - | | | | | | LABORATORY | | + + + + + + | MCV | 100.0 | 83.0 - 101.0 fL | [facility] | | | | | | [facility] | | | | | | [facility] | | [facility] | | [facility] - | | | | | | LABORATORY | | + + + + + + | MCH | 32.8 | 28.0 - 35.0 pg | [facility] | | | | | | [facility] | | | | | | [facility] | | | | | [facility] - | | | | | | LABORATORY | | + + + + + + | MCHC | 32.8 | 32.0 - 36.0 | [facility] | | | | | g/dL | [facility] | | | | | | [facility] | | | | | | [facility] - | | | | | | LABORATORY | | + + + + + + | RDW-CV | 14.4 | <15.0 % | [facility] | | | | | | [facility] | | | | | | [facility] | | | | | | [facility] - | | | | | | LABORATORY | | + + + + + + | RDW-SD | 52.8 (H) | 35.1 - 46.3 fL | [facility] | | | | [...] + + + + | MPV | 11.1 | 6.5 - 12.4 fL | [facility] | | | | | | [facility] | | | | | | [facility] | | | | | | [facility] - | | | | | | LABORATORY | | + + + + + + | % | 72.2 | 45.0 - 82.0 % | [facility] | | | Neutrophils | | | [facility] | | | | | | [facility] | | | | | | [facility] - | | | | | | LABORATORY | | + + + + + + | % | 17.3 (L) | 20.0 - 45.0 % | [facility] | | | Lymphocytes | | | [facility] | | | | | | [facility] | | | | | | [facility] - | | | | | | LABORATORY | | + + + + + + | % Monocytes | 7.4 | 4.0 - 12.0 % | [facility] | | | | | | [facility] | | | | | | [facility] | | | | | | [facility] - | | | | | | LABORATORY | | + + + + + + | % | 2.5 | 0.0 - 5.0 % | [facility] | | | Eosinophils | | | [facility] | | | | | | [facility] | | | | | | [facility] - | | | | | | LABORATORY | | + + + + + + | % Basophils | 0.3 | 0.0 - 1.0 % | [facility] | [facility] | | [facility] | | | | | | [facility] | | | | [facility] - | | | | | | LABORATORY | | + + + + + + | % Immature | 0.3 | 0.0 - 0.4 % | [facility] | | | Granulocyte | | | [facility] | | | s | | | [facility]ICAL | | | | | | CENTER - | | | | | | LABORATORY | | + + + + + + | Absolute | 8.26 | 1.80 - 8.50 | [facility] | | | Neutrophils | | K/uL | [facility] | | | | | | [facility] | | | | | | C[facility] - | | | | | | LABORATORY | | + + + + + + | Absolute | 1.99 | 0.60 - 3.20 | [facility] | | | Lymphocytes | | K/uL | [facility] | | | | | | [facility] | | | | | | CENTER - | | | | | | LABORATORY | | + + + + + + | Absolute | 0.85 | 0.00 - 1.00 | [facility] | | | Monocytes | | K/uL | [facility] | | | | | | [facility]ICAL | | | | | | CENTER - | | | | | | LABORATORY | | + + + + + + | Absolute | 0.29 | 0.00 - 0.40 | [facility] | | | Eosinophils | | K/uL | [facility] | | | | | | [facility]ICAL | | | | | | CENTER - | | | | | | LABORATORY | | + + + + + + | Absolute | 0.04 | 0.00 - 0.10 | [facility] | | | Basophils | | K/uL | [facility] | | | | | | [facility] | | | | | | CENTER - | | | | | | LABORATORY | | + + + + + + | Absolute | 0.04 (H) | 0.00 - 0.03 | [facility] | | | Immature | | K/uL | [facility] | | | Granulocyte | | | MEDICAL | | | s | | | CENTER - | | | | | | LABORATORY | | + + + + + + | % nRBC | 0 | 0 - 2 per 100 | [facility] | | | | | WBCs | [facility] | | | | | | MEDICAL | | | | | | CENTER - | | | | | | LABORATORY | | + + + + + + | Absolute | 0.00 | 0.00 - 0.01 | [facility] | | | nRBC | | K/uL | [facility] | | | | [...] + | [facility] | [address] | [place] | [phone] | | [facility] | | [address] | | | - LABORATORY | | | | + + + + + Culture, Blood (04/05/2019 9:15 PM PST) + + + + + + | Component | Value | Ref Range | Performed | Pathologist | | | | | At | Signature | + + + + + + | Culture | No growth after 5 days | | [facility] | | | | incubation. | | [facility] | | | [...] + | [facility] | [address] | [place] | [phone] | | [facility] | | [address] | | | - LABORATORY | | | | + + + + + ECG 12 lead (04/05/2019 9:08 PM PST) + + + + + + | Component | Value | Ref Range | Performed | Pathologist | | | | | At | Signature | + + + + + + | VENTRICULAR | 58 | BPM | [facility] | | | RATE EKG | | | | | + + + + + + | QRS | 136 | ms | [facility] | | | DURATION | | | | | + + + + + + | Q-T | 472 | ms | [facility] | | | INTERVAL | | | | | + + + + + + | Q-T | 463 | ms | [facility] | | | INTERVAL | | | | | | (CORRECTED) | | | | | + + + + + + | QRS AXIS | -50 | degrees | [facility] | | + + + + + + | T AXIS | 122 | degrees | [facility] | | + + + + + + | INTERPRETAT | Atrial fibrillation with | | [facility] | | | ION TEXT | slow ventricular | | | | | | responseLeft axis | | | | | | deviationRight bundle | | | | | | branch blockLeft | | | | | | anterior fascicular | | | | | | blockInferior infarct | | | | | | (cited on or before | | | | | | 21-MAR-2015)Anterolatera | | | | | | l infarct , age | | | | | | undeterminedST & T wave | | | | | | abnormality, consider | | | | | | lateral ischemiaAbnormal | | | | | | ECGWhen compared with | | | | | | ECG of 02-AUG-2017 | | | | | | 13:04,Anterolateral | | | | | | infarct , age | | | | | | undetermined is now | | | | | | present Confirmed by | | | | | | LUCINA ALAMO, ROSALBA ([id number]) | | | | | | on 04/06/2019 6:32:21 AM | | | | + + [...] site unspecified - Primary | + + | Somnolence Other alteration of consciousness | + + | 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) | + + | Hypertension, renal disease, stage 1-4 or unspecified chronic kidney disease | + + | Atrial fibrillation (HCC) Atrial fibrillation | + + documented in this encounter Administered Medications + +--------+ +--------+------+------+ | Medication Order | MAR | Action | Dose | Rate | Site | | | Action | Date | | | | + +--------+ +--------+------+------+ | allopurinol (ZYLOPRIM) tablet | Given | 04/06/19 | 100 mg | | | | 100 mg 100 mg, Oral, 2 TIMES | | 20 8:02 | | | | | DAILY, First dose on Tue04/06/19 | | AM PST | | | | | at 0100 | | | | | | + +--------+ +--------+------+------+ +-------+ +--------+---+---+ | Given | 04/06/19 | 100 mg | | | | | 20 2:21 | | | | | | AM PST | | | | +-------+ +--------+---+---+ +---+---+ | | | +---+---+ + +-------+ +-------+---+---+ | aspirin EC tablet 81 mg 81 mg, | Given | 04/06/19 | 81 mg | | | | Oral, DAILY, First dose on Tue | | 20 8:02 | | | | | 04/06/19 at 0900 | | AM PST | | | | + +-------+ +-------+---+---+ +---+---+ | | | +---+---+ + +-------+ +-------+---+---+ | atorvaSTATin (LIPITOR) tablet | Given | 04/06/19 | 40 mg | | | | 40 mg 40 mg, Oral, NIGHTLY, | | 20 2:20 | | | | | First dose on Tue04/06/19 at 0100 | | AM PST | | | | + +-------+ +-------+---+---+ +---+---+ | | | +---+---+ + +-------+ +--------+---+---+ | calcium carbonate (TUMS) | Given | 04/06/19 | 500 mg | | | | chewable tablet 500 mg 500 mg, | | 20 8:01 | | | | | Oral, DAILY, First dose on Tue | | AM PST | | | | | 04/06/19 at 0900 | | | | | | + +-------+ +--------+---+---+ +---+---+ | | | +---+---+ + +---------+ +-----+-------+---+ | cefTRIAXone (ROCEPHIN) 1 g in | New Bag | 04/05/19 | 1 g | 100 | | | sodium chloride 0.9% 50 mL IVPB | | 20 10:51 | | mL/hr | | | 1 g, Intravenous, Administer over | | PM PST | | | | | 30 Minutes, ONCE, Aarti 04/05/19 at | | | | | | | 2235, For 1 dose, Activate | | | | | | | system and mix before use., | | | | | | | Indications: UTI - UPPER | | | | | | + +---------+ +-----+-------+---+ +---+---+ | | | +---+---+ + +-------+ +--------+---+---+ | cholecalciferol (VITAMIN D-3) | Given | 04/06/19 | 1,000 | | | | tablet 1,000 Units 1,000 Units, | | 20 8:02 | Units | | | | Oral, DAILY, First dose on Fri | | AM PST | | | | | 04/06/19 at 0900 | | | | | | + +-------+ +--------+---+---+ + +---+ | | | + +---+ | dextrose 10% (D10W) infusion | | | at 50 mL/hr, Intravenous, | | | CONTINUOUS PRN, hypoglycemia, | | | Starting Tue04/06/19 at 0040, | | | Start infusion if unable to | | | maintain blood glucose greater | | | than 70 mg/dL after two rounds of | | | hypoglycemia treatment. Recheck | | | blood glucose 30 minutes after | | | starting D10W then at least | | | hourly and PRN until it is | | | discontinued. Call provider to | | | discuss parameters for D10W | | | discontinuation., | | + +---+ | | | + +---+ | dextrose 50% injection 12.5-25 | | | g 12.5-25 g, Intravenous, PRN, | | | Low Blood Sugar, Starting Fri | | | 04/06/19 at 0040, For blood | | | glucose 50-69 mg/dl - give 12.5 g | | | For blood glucose less than 50 | | | mg/dl - give 25 g, | | + +---+ | | | + +---+ + +-------+ +-------+---+---+ | escitalopram (LEXAPRO) tablet | Given | 04/06/19 | 10 mg | | | | 10 mg 10 mg, Oral, DAILY, First | | 20 8:02 | | | | | dose on Tue04/06/19 at 0900 | | AM PST | | | | + +-------+ +-------+---+---+ +---+---+ | | | +---+---+ + +-------+ +------+---+---+ | folic acid tablet 1 mg 1 mg, | Given | 04/06/19 | 1 mg | | | | Oral, DAILY, First dose on Tue | 8:02 | | | | | 04/06/19 at 0900 | | AM PST | | | | + +-------+ +------+---+---+ +---+---+ | | | +---+---+ + +-------+ + +---+ + | insulin glargine (LANTUS | Given | 04/06/19 | 10 Units | | Arm-Left | | SOLOSTAR) injection (pen) 8:03 | | | Upper | | Units 10 Units, Subcutaneous, | | AM PST | | | | | EVERY 12 HOURS (2 times per day), | | | | | | | First dose on Tue04/06/19 at | | | | | | | 0100, If NPO: Decrease dose, by: | | | | | | | 50% | | | | | | + +-------+ + +---+ + +-------+ + +---+ + | Given | 04/06/19 | 10 Units | | Arm-Righ | | | 20 2:21 | | | t Upper | | | AM PST | | | | +-------+ + +---+ + +---+---+ | | | +---+---+ + +---------+ +---+ +---+ | lactated ringers (LR) infusion | New Bag | 04/05/19 | | 50 mL/hr | | | at 50 mL/hr, Intravenous, | | 20 11:28 | | | | | CONTINUOUS, Starting Aarti 04/05/19 | | PM PST | | | | | at 2315 | | | | | | + +---------+ +---+ +---+ +---+---+ | | | +---+---+ + +-------+ +-------+---+---+ | lisinopril (PRINIVIL, ZESTRIL) | Given | 04/06/19 | 20 mg | | | | tablet 20 mg 20 mg, Oral, DAILY, | | 20 8:01 | | | | | First dose on Tue04/06/19 at | | AM PST | | | | | 0900 | | | | | | + +-------+ +-------+---+---+ +---+---+ | | | +---+---+ + +-------+ +-------+---+---+ | metoprolol succinate | Given | 04/06/19 | 50 mg | | | | (TOPROL-XL) ER tablet 50 mg 50 | | 20 8:58 | | | | | mg, Oral, DAILY, First dose | | AM PST | | | | | (after last modification) on Tue | | | | | | | 04/06/19 at 0915 | | | | | | + +-------+ +-------+---+---+ +---+---+ | | | +---+---+ documented in this encounter
--- OUTSIDE RECORDS SUMMARY | ~2019-09-12 | XMS | Encounter Summary ---
Demographics + + + | Address | [address] | | | [place] [address] | + + + | Home Phone | | + + + | Preferred Language | Unknown | + + + | Marital Status | | + + + | Bahai Affiliation | Unknown | + + + | Race | Unknown | + + + | Ethnic Group | Unknown | + + + Author + + + | Author | [facility] | | | and [place] | + + + | Organization | [facility] | | | [...] | | | | | [place] [address] | | + + + + + | Valentín Saleh | ECON | [address] | | | | | [place] [address] | | + + + + + | Roberto Carlos Lennon | LEVI | [place] | | + + + + + Care Team Providers + +------+ + | Care Aligning Inspector Name | Role | Phone | + +------+ + PCP | Unavailable | + +------+ + Encounter Details +--------+ + + + + | Date | Type | Department | Care Team | Description | +--------+ + + + + | 12/01/ | Hospital | [facility] | | | | 2005 | Encounter | [facility] | | | | | | [address] | | | | | | [place] | | | | | | [address] | | | | | | [phone] | | | +--------+ + + + [...] | | | | | | [place] [address] | | | | | | [phone] | | | | | | | | +--------+---------+ + + + documented as of this encounter Visit Diagnoses Not on filedocumented in this encounter"
--- OUTSIDE RECORDS SUMMARY | ~2019-09-12 | XMS | Encounter Summary ---
Demographics + + + | Address | [address] | | | [place] [address] | + + + | Home Phone [...] + | Author | [facility] | | | and [place] | + + + | Organization | [facility] | | | and [...] | | | | | [place] [address] | | + + + + + | Valentín Saleh | ECON | [address] | | | | | [place] [address] | | + + + + + | Roberto Carlos Lennon | LEVI | Unknown | | + + + + + Care Team Providers + +------+ + | Care Data Clerk Name | Role | Phone | + +------+ + | Francois Pascal MD | PCP | | + +------+ + Reason for Visit + +--------+ + | Reason | Onset | Comments | | | Date | | + +--------+ + | Paperwork | 10/12/ | | | | 2018 | | + +--------+ + | DME | 10/12/ | | | | 2018 | | + +--------+ + Encounter Details +--------+ + + + + | Date | Type | Department | Care Team | Description | +--------+ + + + + | 10/12/ | Telephone | [facility] | Francois Pascal, | Paperwork; DME | | 2019 | | MEDIC[facility] [place] | [address] | | | | | [address] | [address] [place], | | | | | [place] | [place] [address] | | | | | [address] | [phone] | | | | | [phone] | | | +--------+ + + + [...] this encounter Miscellaneous Notes Telephone Encounter - Yamileth Bah RN - 10/17/2018 3:57 PM PDTPaperwork was faxed a gain to [facility], this time to [facility] [place] at [phone] per their request. DWO and chart notes are at my desk. Holding in case anything needs to be corrected on form. elephone Kacy Goldberg Drama Professor - 10/17/2018 3:10 PM PDTPaperwork faxed to [facility]. Called Kayla at [facility] but unable to reach her elephone Encounter - Ayanna Mederos RN - 10/17/2018 2:24 PM PDTReceived phone call from [place] [facility]. [place]king if we have sent [facility] what they need to supply a bed and wheelchair for the patient, so that she can be discharged to the Adult half-way in [place]? Let her know that Dr Fran martins hasn't had a chance to address this yet. Kayla at [facility] would like a phone call to let her know when this has been sent to [facility]. She is at [phone], ext [phone] elephone Encount feliciano - Yamileth Bah RN - 10/17/2018 11:32 AM PDTSusie calls from [facility]ene[facility] Giang to check on this. Patient discharging today so needs equipment MARIANNE. Please call Kayla when chart notes and DWO complete and faxed to [facility]. She can be reached at [phone] extension [phone] or [phone]. OK to leave message on [phone] ext if needed. elephone Kacy Goldberg, Drama Professor - 10/17/2018 7:11 AM PDTIn regards to the Wheelcha ir, ANAI is wantintg the following:addended into your last visit note on 10/10/18. A. Patient has mobility limitations that significallly impairs her ability to participate i n one or more mobility related activities of daily living in the home B. Patients mobility limitations cannot sufficiently be resolved by the use of an appropria tely fitted cane or walker. C. The use of manual wheelchair will significantly improve the patients ability to particip ate in MRADL's and the patient will use it on a regular basis in the home D. The patient has not expressed an unwillingness to se the manual wheelchair that is provi ded in the home. E. The patient has sufficient upper estremity function and other physical and mental capabi lities needed to safely self-propel the manual wheelchair that is provided in the home hanyin g a typical day ele phone Encounter - Mary Mullen RN - 10/16/2018 5:36 PM PDTIn regards to the hospita l bed, ANAI is wanting the following addended to your last visit note on 10/10/18: A.) Does the patient require positioning of the body in ways not feasible with an ordinary bed in order to alleviate pain? Must document the cause, frequency duration, level of pain w hat has been done to treat the pain and how the bed will alleviate the pain? B.) Does the patient require a frequent or immediate change in body position? Should addres s how often and why. elephone Encou nter - Kacy Delaney, Drama Professor - 10/16/2018 3:44 PM PDTIn regards to the [facility] bed, ANAI is wantintg the following: A.) Does the patient require positioning of the body in ways not feasible with an ordinary bed in order to alleviate pain? Must document the cause, frequency duration, level of pain w hat has been done to treat the pain and how the bed will alleviate the pain? B.) Does the patient require a frequent or immediate change in body position? Should addres s how often and why. ele phone Encounter - Kacy Delaney Medical Assistant - 10/16/2018 10:17 AM PDTOn providers desk. P DTTelephone Encounter - Yamileth Bah RN - 10/16/2018 9:47 AM PDTTravis calls back. R eceived DWO and chart notes but no changes were made as he had requested. He is faxing new D WO and criteria outline again. 10/10 office notes indicate patient is wheelchair bound and needs a hospital bed, but no furt her details. Medicare will not cover equipment without more specific notes. Feliciano will indicate criteria that needs to be added to last notes in order for Medicare to cover. Just needs notes addended, not a new appointment. Also needs DWO completed and for provider to sign and date. elephone Encounter - Kacy Delaney Medical A ssistant - 10/13/2018 9:40 AM PDTPaperwork received. Placed on providers desk to review onc e back in office 10/16Electronically signed by Adam Flor at 019 9:40 AM PDTTelephone Encounter - Caprice Ashley RN - 10/12/2018 4:56 PM PDTTr Anai rucker, calls stating he needs an addendum to the chart notes so he can obtain a hospit al bed and manual wheelchair. He will be sending fliers with the needed verbiage for both items. Will also be sending the DWO form. Patient was just seen on 10/10/18. Please fax form to [phone].Electronically signed by Caprice Ashley RN at 10/12 5:07 PM PDTdocumented in this encounter Plan of [...] | | | | | | [place] [address] | | | | | | [phone] | | | | | | | | +--------+---------+ + + + documented as of this encounter Visit Diagnoses Not on filedocumented in this encounter"
--- OUTSIDE RECORDS SUMMARY | ~2019-09-12 | XMS | Encounter Summary ---
Demographics + + + | Address | [address] | | | [place] [address] | + + + | Home Phone | | + + + | Preferred Language | Unknown | + + + | Marital Status | | + + + | Caodaism Affiliation | Unknown | + + + | Race | Unknown | + + + | Ethnic Group | Unknown | + + + Author + + + | Author | [facility] | | | and [place] | + + + | Organization | [facility] | | [...] | | | | | [place] [address] | | + + + + + | Valentín Saleh | ECON | [address] | | | | | [place] [address] | | + + + + + | Roberto Carlos Lennon | LEVI | Unknown | | + + + + + Care Team Providers + +------+ + | Care Junior Sales Representative Name | Role | Phone | + +------+ + | Francois Pascal MD | PCP | | + +------+ + Reason for Visit + +--------+ + | Reason | Onset | Comments | | | Date | | + +--------+ + | Paperwork | 06/09/ | | | | 2018 | | + +--------+ + Encounter Details +--------+ + + + + | Date | Type | Department | Care Team | Description | +--------+ + + + + | 06/09/ | Telephone | [facility] | Francois Pascal, | Paperwork | | 2018 | | MEDICINE [place] | [address] | | | | | [address] | [address] [place], | | | | | [place] | [place] [address] | | | | | [address] | [phone] | | | | | [phone] | | | +--------+ + + + [...] this encounter Miscellaneous Notes Telephone Encounter - Cindi Carlson Medical Assistant - 06/09/2018 11:58 AM PDTOrder summ carolina report has been was received and reviewed by provider. Signed paper work was faxed to Naren Giang . FYI: Called and verified that Renee Giang received paper work, paper work received 06-09-2018 lectronically signed by Adam Bell at 06/09/2018 12:03 PM PDTdocumente d in this encounter Plan of Treatment +--------+---------+ + + + | Date | Type | Specialty | Care Team | Description | +--------+---------+ + + + | 12/06/ | Office | Cardiology | Stephenie Paul, | | | 2019 | Visit | | MD Bob Sheehan | | | | | | [place], | | | | | | [place] [address] | | | | | | [phone] | | | | | | | | +--------+---------+ + + + documented as of this encounter Visit Diagnoses Not on filedocumented in this encounter"
--- OUTSIDE RECORDS SUMMARY | ~2019-09-12 | XMS | Encounter Summary ---
Demographics + + + | Address | [address] | | | [place] [address] | + + + | Home Phone [...] Author | [facility] | | | and [place] | + + + | Organization | [facility] | | | and [place] | + + + | Address | Unknown | + + + | Phone | Unavailable | + + + Support + + + + + | Name | Relationship | Address | Phone | + + + + + | Sigrid Lennon | ECON | [address] | | | | | [place] [address] | | + + + + + | Valentín Saleh | ECON | [address] | | | | | [place] [address] | | + + + + + | Roberto Carlos Lennon | LEVI | Unknown | | + + + + + Care Team Providers + +------+ + | Care Computer Processing Scheduler Name | Role | Phone | + [...] Description | +--------+--------+ + + + | 09/28/ | Refill | [facility] | Francois Pascal, | Medication Refill | | 2014 | | MEDICINE [place] | [address] | | | | | [address] | [address], | | | | | [place] | [place] [address] | | | | | [address] | [phone] | | | | | [phone] | | | +--------+--------+ + + + [...] | | | | | | [place] [address] | | | | | | [phone] | | | | | | | | +--------+---------+ + + + documented as of this encounter Visit Diagnoses Not on filedocumented in this encounter"
--- OUTSIDE RECORDS SUMMARY | ~2019-09-12 | XMS | Encounter Summary ---
Demographics + + + | Address | [address] | | | [place] [address] | + + + | Home Phone | | + + + | Preferred Language | Unknown | + + + | Marital Status | | + + + | Judaism Affiliation | Unknown | + + + | Race | Unknown | + + + | Ethnic Group | Unknown | + + + Author + + + | Author | [facility] | | | and [place] | + + + | Organization | [facility] | | | and [place] | + + + | Address | Unknown | + + + | Phone | Unavailable | + + + Support + + + + + | Name | Relationship | Address | Phone | + + + + + | Sigrid Lennon | ECON | [address] | | | | | [place] [address] | | + + + + + | Valentín Saleh | ECON | [address] | | | | | [place] [address] | | + + + + + | Roberto Carlos Lennon | LEVI | Unknown | | + + + + + Care Team Providers + +------+ + | Care Music Therapy Teacher Name | Role | Phone | + +------+ + | No, Physician | PCP | Unavailable | + +------+ + Reason for Visit + +--------+ + | Reason | Onset | Comments | | | Date | | + +--------+ + | Care Coordination | 04/06/ | | | | 2020 | | + +--------+ + Encounter Details +--------+ + + + + | Date | Type | Department | Care Team | Description | +--------+ + + + + | 04/06/ | Telephone | [facility] | Toya, | Care Coordination | | 2019 | | MEDICINE [place] | Lisa Forbes RN | | | | | [address] [place] [address] | | | | | | [place] | | | | | | [address] | | | | | | [phone] | | | +--------+ + + + [...] this encounter Miscellaneous Notes Telephone Encounter - Lisa Pittman RN - 04/06/2019 8:57 AM PSTFormatting of thi s note might be different from the original. Care Conference with In Patient RNCS for patient admitted to the hospital. Reviewed admission diagnosis, plan of care and discharge plan. Hospital follow up appointment scheduled with pcp. Will follow for Transitions Care Management when discharged. Future Appointments Date Time Provider Department [place] 04/06/2019 4:30 PM Amita Galvez, Speech Pathologist [facility] 04/12/2019 11:15 AM Francois Pascal MD [facility] 05/03/2019 1:30 PM Stephenie Paul MD [facility] documented in this encounter Plan of Treatment +--------+---------+ + + + | Date | Type | Specialty | Care Team | Description | +--------+---------+ + + + | 12/06/ | Office | Cardiology | Stephenie Paul, | | | 2019 | Visit | | MD Bob Sheehan | | | | | | [place], | | | | | | [place] [address] | | | | | | [phone] | | | | | | | | +--------+---------+ + + + documented as of this encounter Visit Diagnoses Not on filedocumented in this encounter"
--- OUTSIDE RECORDS SUMMARY | ~2019-09-12 | XMS | Encounter Summary ---
Demographics + + + | Address | [address] | | | [place] [address] | + + + | Home Phone [...] | Author | [facility] | | | and [place] | + + + | Organization | [facility] | | | and [place] | + + + | Address | Unknown | + + + | Phone | Unavailable | + + + Support + + + + + | Name | Relationship | Address | Phone | + + + + + | Sigrid Lennon | ECON | [address] | | | | | [place] [address] | | + + + + + | Valentín Saleh | ECON | [address] | | | | | [place] [address] | | + + + + + | Roberto Carlos Lennon | LEVI | [place] | | + + + + + Care Team Providers + +------+ + | Care Gym Attendant Name | Role | Phone | + +------+ + PCP | Unavailable | + +------+ + Encounter Details +--------+ + + + + | Date | Type | Department | Care Team | Description | +--------+ + + + + | 06/03/ | Hospital | [facility] | | | | 2005 | Encounter | [facility] | | | | | | [address] | | | | | | [place] | | | | | | [address] | | | | | | [phone] | | | +--------+ + + + [...] [place], | | | | | | [place] [address] | | | | | | [phone] | | | | | | | | +--------+---------+ + + + documented as of this encounter Visit Diagnoses Not on filedocumented in this encounter"
--- OUTSIDE RECORDS SUMMARY | ~2019-09-12 | XMS | Encounter Summary ---
Demographics + + + | Address | [address] | | | [place] [address] | + + + | Home Phone | | + + + | Preferred Language | Unknown | + + + | Marital Status | | + + + | Faith Affiliation | Unknown | + + + | Race | Unknown | + + + | Ethnic Group | Unknown | + + + Author + + + | Author | [facility] | | | and [place] | + + + | Organization | [facility] [...] | | | | | [place] [address] | | + + + + + | Valentín Saleh | ECON | [address] | | | | | [place] [address] | | + + + + + | Roberto Carlos Lennon | LEVI | Unknown | | + + + + + Care Team Providers + +------+ + | Care Continuous Yarn Dyeing Machine Operator Name | Role | Phone [...] | | Gait | [place] | [address] Phone: | | | | | instability | [address] | [phone] | | | | | Procedures | Phone: | Fax: | | | | | [facility] | [phone] | [phone] | | | | | TREATMENT 45 | Fax: | | | | | | | [phone] | | +--------+--------+ + + + + Encounter Details +--------+---------+ + + + | Date | Type | Department | Care Team | Description | +--------+---------+ + + + | 03/17/ | Office | [facility] | Francois Pascal, | Posture imbalance | | 2016 | Visit | MED CTR THERAPY PT | MD [address] | (Primary Dx); | | | | OP [address] | [address] [place], | Impaired functional | | | | [place], [place] | [place] [address] | mobility, balance, | | | | [address] | [phone] | gait, and endurance; | | | | [phone] | | Left ankle pain | | | | | Cheyenne Caballero, | | | | | | CASTING AND CURING OPERATOR [address] | | | | | | [place], [place] | | | | | | [address] | | | | | | | [...] of this encounter Progress Notes Cheyenne Caballero, CASTING AND CURING OPERATOR - 03/17/2015 12:21 PM PSTFormatting of this note might be different f rom the original. [facility] CTR THERAPY PT OP [address] [place] [address] Physical Therapy Daily Treatment Note Date: 03/17/2015 Patient Information Patient Name: Alyson Lennon Date of : 1930 Age: 84 y.o. Encounter Diagnoses Code Name Primary? R29.3 Posture imbalance Yes Z74.09 Impaired functional mobility, balance, gait, and endurance M25.572 Left ankle pain Date of Onset: 10/24/2014 Referring Provider: Francois Pascal MD Rehab Precautions Office Visit from 12/24/2014 in [facility] CTR THERAPY PT OP Rehab Precautions Precautions Comments fall risk Start Time: 0100 Stop time: 1145 Duration: 645 minutes Timed Treatment Codes: 45 minutes # of PT Visits to Date: 16 Subjective: No falls since last session.is very happy to have her 4WW back. No change in the ankle/foot pain, it is worse in winter. Pain Assessment: Pain Scale Used: NUMERIC Pain Rating Pre Assessment: 4 Pain Rating Post Assessment: 4 Location: left foot/ankle Objective: Education: use her foot bath at home daily, use of neoprene sleeve to keep ankle warmer, do stretches throughout the day Manual therapy to increase ROM of left ankle- At beginning and end of session-Stretching of left ankle DF, PF, inversion, eversion Stretching and strengthening ex and balance training to reduce fall risk- BigMLer board side to side, fwd/back, diagonal Supine and sidelying SLR Calf stretches at stairs and tilt board standing on foam with head turns small [place], eyes open and closed Stepping clock ex without UE support close SBA Toe taps on 4 inch step, standing with one foot on step CGA Assessment: Right ankle remains very tight. Plan: Cont with balance training, stretches, strengthening. Electronically signed by: Cheyenne Caballero PTA, 03/17/2015 12:22 Patient Name: Alyson Lennon/: 1930/ documented in [...] | | | | | | [place] [address] | | | | | | [phone] | | | | | | | [...]
--- OUTSIDE RECORDS SUMMARY | ~2019-09-12 | XMS | Encounter Summary ---
Demographics + + + | Address | [address] | | | [place] [address] | + + + | Home Phone [...] Author | [facility] | | | and [place] | + + + | Organization | [facility] [...] | | | | | [place] [address] | | + + + + + | Valentín Saleh | ECON | [address] | | | | | [place] [address] | | + + + + + | Roberto Carlos Lennon | LEVI | Unknown | | + + + + + Care Team Providers + +------+ + | Care Centrifugal Drier Operator Name | Role | Phone | [...] | | 2017 | | MEDICINE [address] | [address] | uncomplicated | | | | [address] [place], | [address] [place], | (Primary Dx) | | | | [place] [address] | [place] [address] | | | | | [phone] | [phone] | | | | | | | [...] | | | | | | [place] [address] | | | | | | [phone] | | | | | | | | +--------+---------+ + + + documented as of this encounter Visit Diagnoses + + | Diagnosis | + + | Senile dementia, uncomplicated (HCC) - Primary Senile dementia, uncomplicated | + + documented in this encounter"
--- OUTSIDE RECORDS SUMMARY | ~2019-09-12 | XMS | Encounter Summary ---
Demographics + + + | Address | [address] | | | [place] [address] | + + + | Home Phone | | + + + | Preferred Language | Unknown | + + + | Marital Status | | + + + | Restorationism Affiliation | Unknown | + + + | Race | Unknown | + + + | Ethnic Group | Unknown | + + + Author + + + | Author | [facility] | | | and [place] | + + + | Organization | [facility] | | | and [place] | + + + | Address | Unknown | + + + | Phone | Unavailable | + + + Support + + + + + | Name | Relationship | Address | Phone | + + + + + | Sigrid Lennon | ECON | [address] | | | | | [place] [address] | | + + + + + | Valentín Saleh | ECON | [address] | | | | | [place] [address] | | + + + + + | Roberto Carlos Lennon | LEVI | [place] | | + + + + + Care Team Providers + +------+ + | Care Accounts Administrator Name | Role | Phone | + +------+ + PCP | Unavailable | + +------+ + Encounter Details +--------+ + + + + | Date | Type | Department | Care Team | Description | +--------+ + + + + | 11/13/ | Hospital | [facility] | | | | 2005 | Encounter | MED CTR LABORATORY | | | | | | [address] | | | | | | [place] | | | | | | [address] | | | | | | [phone] | | | +--------+ + + + [...] | | | | | | [place] [address] | | | | | | [phone] | | | | | | | | +--------+---------+ + + + documented as of this encounter Visit Diagnoses Not on filedocumented in this encounter"
--- OUTSIDE RECORDS SUMMARY | ~2019-09-12 | XMS | Encounter Summary ---
Demographics + + + | Address | [address] | | | [place] [address] | + + + | Home Phone [...] | Author | [facility] | | | and [place] | + + + | Organization | [facility] | | | and [...] | | | | | [place] [address] | | + + + + + | Valentín Saleh | ECON | [address] | | | | | [place] [address] | | + + + + + | Roberto Carlos Lennon | LEVI | Unknown | | + + + + + Care Team Providers + +------+ + | Care Chronic Disease Manager Name | Role | Phone | [...] | Francois Tello MD | [address] | | | | | (shortness | [address] | [place], | | | | | of breath) | [address] | [place] | | | | | Procedures | [place] | [address] | | | | | ECHO | [place], [place] | Phone: | | | | | Complete | [address] | [phone] | | | | | | Phone: | Fax: | | | | | | [phone] | [phone] | | | | | | Fax: | | | | | | | [phone] | | +--------+--------+ + + + + Reason for Visit + + + | Reason | Comments | + + + | Follow-up | 2 week. Fatigue, weak | + + + | Altered Mental | Confusion | | Status | | + + + Encounter Details +--------+---------+ + + + | Date | Type | Department | Care Team | Description | +--------+---------+ + + + | 11/04/ | Office | [facility] | Francois Pascal, | CKD (chronic kidney | | 2015 | Visit | [address] | [address] | disease) stage 4, | | | | AVE [address], | [address] [place], | GFR 15-29 ml/min | | | | [place] [address] | [place] [address] | (HCC) (Primary Dx); | | | | [phone] | [phone] | SOB (shortness of | | | | | | breath); Confusion | +--------+---------+ + + + Social History [...] + + + | Blood Pressure | 126/66 | 11/04/2014 10:32 AM | | | | | PDT | | + + + + + | Pulse | 73 | 11/04/2014 10:32 AM | | | | | PDT | | + + + + + | Temperature | 36.5 C (97.7 F) | 11/04/2014 10:32 AM | | | | | PDT | | + + + + + | Respiratory Rate | 16 | 11/04/2014 10:32 AM | | | | | PDT | | + + + + + | Oxygen Saturation | 96% | 11/04/2014 10:32 AM | | | | | PDT | | + + + + + | Inhaled Oxygen | - | - | | | Concentration | | | | + + + + + | Weight | 71.7 kg (158 lb) | 11/04/2014 10:32 AM | | | | | PDT | | + + + + + | Height | 157.5 cm (5' 2") | 11/04/2014 10:32 AM | | | | | PDT | | + + + + + | Body Mass Index | 28.9 | 11/04/2014 10:32 AM | | | | | PDT | | + + + + + documented in this encounter Progress Notes Francois Pascal MD - 11/04/2014 10:48 AM PDTFormatting of this note might be different f rom the original. Subjective: Patient ID: Alyson Lennon is a 83 y.o. female. 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 UTI, also treated by ER, Still on abx, There are no urinary symptoms at this point. Riri her and her think she is still a little less confused. She is stil fatigued m ost of the time. She has no PERSAUD. HTN, Recent BP's have been running in the 120/60 range. Hard to get a deep breath ever sin ce she hit her head. There has been no chest pain. Review of Systems Objective: Physical Exam Heent, WNL, No carotid bruit Chest CTAB Heart RR&R /s M Abd S,NT,ND,BS+ Ext, no CCor E Neuro Non-focal Lymph, no cervical, axillary, inguinal adenopathy Musculoskeletal, no gross deformity or loss or range of motion Skin, no gross lesions Assessment: 1. CKD (chronic kidney disease) stage 4, GFR 15-29 ml/min ([facility]) Comprehensive Metabolic Pa gwendolyn 2. SOB (shortness of breath) ECHO Complete 3. Confusion VAS Carotid Duplex Bilateral Plan: As above, RTC 4 weeks , she is slightly better but this confusion must be coming from some where besides the contusion, Maybe the heart or carotids. She will let me know if this wor sens in the interim. documented in this encounter Plan of Treatment +--------+---------+ + + + | Date | Type | Specialty | Care Team | Description | +--------+---------+ + + + | 12/06/ | Office | Cardiology | Stephenie Paul, | | | 2019 | Visit | | MD [address] | | | | | | [place], | | | | | | [place] [address] | | | | | | [phone] | | | | | | | | +--------+---------+ + + + documented as of this encounter Results VAS Carotid Duplex Bilateral (11/25/2014 1:10 PM PDT) + + | Specimen | + + | | + + + + + | Narrative | Performed At | + + + | BILATERAL DUPLEX CAROTID ULTRASOUND 11/25/2014 12:19 PM | [facility] | | CLINICAL HISTORY: confusion COMPARISON: CAROTID ULTRASOUND | [facility] | | FEBRUARY 2009 FINDINGS: Grayscale, color Doppler and duplex | [facility] | | Doppler interrogation of the bilateral cervical carotid arteries is | - IMAGING | | performed. All reported velocities are in cm/sec. ANTERIOR | | | CIRCULATION: Right: CCA: 65/12; bulb: 218/19; ECA: 286/24; ICA: 97/23 | | | (ICA/CCA 1.5) Left: CCA: 87/16; bulb: 107/19; ECA: 132/11; ICA: | | | 182/48 (ICA/CCA 2.1) Posterior circulation: Antegrade flow is | | | suggested within a structure favoring a right vertebral artery. | | | Antegrade flow is present within a more dominant appearing left | | | vertebral artery, as noted previously. Grayscale findings: | | | Prominent echogenic, shadowing plaque in the right carotid bulb and | | | involving the origins of the internal and external carotid arteries is | | | more pronounced, and there is flow turbulence beyond this level. | | | Mild, eccentric, echogenic plaque is present in the mid left common | | | carotid artery. There is echogenic, shadowing plaque in the left | | | carotid bulb. The origins of the left internal and external carotid | | | arteries are not well-visualized. IMPRESSION - 1. ECHOGENIC, | | | SHADOWING PLAQUE WITHIN BOTH CAROTID BULBS, INVOLVING THE ORIGINS OF | | | THE INTERNAL AND EXTERNAL CAROTID ARTERIES, AND LIMITING EVALUATION | | | OF THESE REGIONS. BASED ON PEAK SYSTOLIC VELOCITY AND ICA/CCA RATIO | | | CRITERIA, AT LEAST 50-69% STENOSIS IS SUGGESTED BILATERALLY. | | | CONSIDER FOLLOW-UP CTA OR MRA FOR MORE COMPLETE EVALUATION AND | | | ACCURATE CHARACTERIZATION OF VESSEL CALIBER. 2. 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 Dictated and Signed | | | by: Benedict Vigil MD Electronically signed: 11/25/2014 3:06 PM | | + + + + + | Procedure Note | + + | Al, Rad Results In - 11/25/2014 3:09 PM PDT BILATERAL DUPLEX CAROTID ULTRASOUND | | 11/25/2014 12:19 PMCLINICAL HISTORY: confusionCOMPARISON: CAROTID ULTRASOUND FEBRUARY | | 2008FINDINGS: Grayscale, color Doppler and duplex Doppler interrogation of thebilateral | | cervical carotid arteries is performed. All reported velocities arein cm/sec.ANTERIOR | | CIRCULATION:Right: CCA: 65/12; bulb: 218/19; ECA: 286/24; ICA: 97/23 (ICA/CCA 1.5)Left: | | CCA: 87/16; bulb: 107/19; ECA: 132/11; ICA: 182/48 (ICA/CCA 2.1)Posterior circulation: | | Antegrade flow is suggested within a structure favoring aright vertebral artery. | | Antegrade flow is present within a more dominantappearing left vertebral artery, as | | noted previously.Grayscale findings: Prominent echogenic, shadowing plaque in the right | | carotidbulb and involving the origins of the internal and external carotid arteries | | ismore pronounced, and there is flow turbulence beyond this level. Mild,eccentric, | | echogenic plaque is present in the mid left common carotid artery. There is echogenic, | | shadowing plaque in the left carotid bulb. The origins ofthe left internal and external | | carotid arteries are not well-visualized.IMPRESSION -1. ECHOGENIC, SHADOWING PLAQUE | | WITHIN BOTH CAROTID BULBS, INVOLVING THEORIGINS OF THE INTERNAL AND EXTERNAL CAROTID | | ARTERIES, AND LIMITING EVALUATIONOF THESE REGIONS. BASED ON PEAK SYSTOLIC VELOCITY AND | | ICA/CCA RATIO CRITERIA,AT LEAST 50-69% STENOSIS IS SUGGESTED BILATERALLY. CONSIDER | | FOLLOW-UP CTA ORMRA FOR MORE COMPLETE EVALUATION AND ACCURATE CHARACTERIZATION OF | | VESSELCALIBER.2. 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 Mild, | |eccentric, echogenic plaque is present in the mid left common carotid artery. | |There is echogenic, shadowing plaque in the left carotid bulb. The origins of | |the left internal and external carotid arteries are not well-visualized. | | | |IMPRESSION - | |1. ECHOGENIC, SHADOWING PLAQUE WITHIN BOTH CAROTID BULBS, INVOLVING THE | |ORIGINS OF THE INTERNAL AND EXTERNAL CAROTID ARTERIES, AND LIMITING EVALUATION | |OF THESE REGIONS. BASED ON PEAK SYSTOLIC VELOCITY AND ICA/CCA RATIO CRITERIA, | |AT LEAST 50-69% STENOSIS IS SUGGESTED BILATERALLY. CONSIDER FOLLOW-UP CTA OR | |MRA FOR MORE COMPLETE EVALUATION AND ACCURATE CHARACTERIZATION OF VESSEL | |CALIBER. | | | |2. 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 | | | |Dictated and Signed by: Benedict Vigil MD | | Electronically signed: 11/25/2014 3:06 PM | + + + + + + + | Performing | Address | City/State/Zipcode | Phone Number | | Organization | | | | + + + + + | [facility] | [address] | [place] | [phone] | | [facility] | | [address] | | | - IMAGING | | | | + + + + + ECHO Complete (11/25/2014 11:42 AM PDT) + + | Specimen | + + | | + + + + + | Narrative | Performed At | + + + | [facility] | [place] | | STUDY DATE: 11/25/2014 PATIENT NAME: Alyson Lennon : | [facility] | | 1930 PCP: Francois Pascal MD | [facility] | | CLINICAL HISTORY/DIAGNOSIS: SOB, HTN A [...] | | | PhD FACC 11/25/2014 11:43 Senior Systems Administrator: Rolando | | | Zilliox, RDCS, RVT, RDMS | | + + + + + + + + | Performing | Address | City/State/Zipcode | Phone Number | | Organization | | | | + + + + + | [facility] | [address] | [place] | [phone] | | [facility] | | [address] | | | - IMAGING | | | | + + + + + documented in this encounter Visit Diagnoses + + | Diagnosis | + + | CKD (chronic kidney disease) stage 4, GFR 15-29 ml/min ([facility]) - Primary Chronic kidney | | disease, Stage IV (severe) | + + | SOB (shortness of breath) Shortness of breath | + + | Confusion Unspecified psychosis | + + documented in this encounter
--- OUTSIDE RECORDS SUMMARY | ~2019-09-12 | XMS | Encounter Summary ---
Demographics + + + | Address | [address] | | | [place] [address] | + + + | Home Phone [...] + | Author | [facility] | | | and [place]ana | + + + | Organization | [facility] | | | and [...] | | | | | [place] [address] | | + + + + + | Valentín Saleh | ECON | [id number] | | | | | [place] [address] | | + + + + + | Roberto Carlos Lennon | LEVI | Unknown | | + + + + + Care Team Providers + +------+ + | Care Health Advisor Name | Role | Phone | + +------+ + | Francois Psacal MD | PCP | | + +------+ + Reason for Visit + + + | Reason | Comments | + + + | Follow-up | 1 month. continues with PT | + + + | Diabetes | | + + + Encounter Details +--------+---------+ + + + | Date | Type | Department | Care Team | Description | +--------+---------+ + + + | 01/09/ | Office | [facility] | Francois Pascal, | Diabetes mellitus | | 2015 | Visit | MEDICINE [address] | [address] | due to underlying | | | | [address] [place], | [address] [place], | condition with | | | | [place] [address] | [place] [address] | diabetic nephropathy | | | | [phone] | [phone] | (HCC) (Primary Dx); | | | | | | CHRONIC KIDNEY | | | | | | DISEASE STAGE III | | | | | | (MODERATE); | | | | | | Essential | | | | | | hypertension; | | | | | | Posture imbalance | +--------+---------+ + + + Social History [...] + + + | Blood Pressure | 112/52 | 01/09/2015 9:32 AM | | | | | PST | | + + + + + | Pulse | 62 | 01/09/2015 9:32 AM | | | | | PST | | + + + + + | Temperature | 36.5 C (97.7 F) | 01/09/2015 9:32 AM | | | | | PST | | + + + + + | Respiratory Rate | 16 | 01/09/2015 9:32 AM | | | | | PST | | + + + + + | Oxygen Saturation | 96% | 01/09/2015 9:32 AM | | | | | PST | | + + + + + | Inhaled Oxygen | - | - | | | Concentration | | | | + + + + + | Weight | 72.1 kg (159 lb) | 01/09/2015 9:32 AM | | | | | PST | | + + + + + | Height | - | - | | + + + + + | Body Mass Index | 29.08 | 12/09/2014 11:11 AM | | | | | PDT | | + + + + + documented in this encounter Progress Notes Francois Pascal MD - 01/09/2015 9:43 AM PSTFormatting of this note might be [...] Hyponatremia, Dehydration with acute on chronic RF, She is going to PT. CKD, she drinks 6 glasses of water daily, She avoids all NSAIDS except for tylenol. She s ees Kemar Mcclelland today. HTN, Recent BP's have [...] VSD Father 50 Pneumonia Family Hx of Stewart's chorea Sister and 2 brothers: CAD, Stewart's Disease to Neponset - with 2 Healthy Children No kidney disease in family. Social History: Reviewed history from 08/11/2011 and no changes required: Born in [facility] for 46 years. and Remarried [...] axillary, inguinal adenopathy Musculoskeletal, no gross deformity Skin, no gross lesions Assessment: 1. 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 CHRONIC KIDNEY DISEASE STAGE III (MODERATE) 3. Essential hypertension 4. Posture imbalance Plan: She looks and feels fine. She has had her labs done which are pending. RTC 3 months with labs prior. Otherwise continue current medical regimen. documented in this encounter Plan of Treatment +--------+---------+ + + + | Date | Type | Specialty | Care Team | Description | +--------+---------+ + + + | 12/06/ | Office | Cardiology | Stephenie Paul, | | | 2019 | Visit | | MD Bob Vasquez [address] | | | | | | [place], | | | | | | [place] [address] | | | | | | [phone] | | | | | | | | +--------+---------+ + + + documented as of this encounter Results Hemoglobin A1C (04/14/2015 8:40 AM PST) + +---------+ + + + | Component | Value | Ref Range | Performed | Pathologist | | | | | At | Signature | + +---------+ + + + | Hemoglobin | 7.9 (H) | 4.3 - 6.0 % | [facility] | | | A1c | | | [facility] | | | | | | [facility] | | | | | | [facility] - | | | | | | LABORATORY | | + +---------+ + + + | Estimated | 180 | mg/dL | [facility] | | | Average | | | [facility] | | | Glucose | | [...] [address] | [place] | [phone] | | [facility] | | [address] | | | - LABORATORY | | | | + + + + + CBC with Differential (04/14/2015 8:40 AM PST) + + + + + + | Component | Value | Ref Range | Performed | Pathologist | | | | | At | Signature | + + + + + + | White Blood | 10.2 | 4.0 - 11.0 K/uL | [facility] | | | Cells | | | [facility] | | | | | | [facility]ICAL | | | | | | CENTER - | | | | | | LABORATORY | | + + + + + + | Red Blood | 4.14 | 3.70 - 5.20 | [facility] | [...] + + + + | Hematocrit | 41.4 | 34.0 - 47.0 % | [facility] | | | | | | [facility] | | | | | | [facility] | | | | | | C[facility] - | | | | | | LABORATORY | | + + + + + + | MCV | 99.8 | 83.0 - 101.0 fL | [facility] | | | | | | [facility] | | | | | | [facility] | | | | | | CENTER - | | | | | | LABORATORY | | + + + + + + | MCH | 33.3 | 28.0 - 35.0 pg | [facility] [...] + + + + | Platelet | 185 | 140 - 440 K/uL | [facility] [...] + + + + | % | 48.7 | 45.0 - 82.0 % | [facility] | | | Neutrophils | | | [facility] | | | | | | [facility]ICAL | | | | | | CENTER - | | | | | | LABORATORY | | + + + + + + | % | 30.9 | 20.0 - 45.0 % | [facility] | | | Lymphocytes | | | [facility] | | | | | | MEDICAL | | | | | | CENTER - | | | | | | LABORATORY | | + + + + + + | % Monocytes | 12.3 (H) | 4.0 - 12.0 % | [facility] | | | | | | [facility] | | | | | | [facility] | | | | | | CENTER - | | | | | | LABORATORY | | + + + + + + | % | 7.1 (H) | 0.0 - 5.0 % | [...] + + + + | Absolute | 5.00 | 1.80 - 8.50 | [facility] | [...] | | Lymphocytes | | K/uL | [facility] | | | | | | MEDICAL | | | | | | CENTER - | | | | | | LABORATORY | | + + + + + + | Absolute | 1.30 (H) | 0.00 - 1.00 | [facility] [...] ST. | [address] | [place], [place] | [phone] | | [facility] | | [address] | | | - LABORATORY | | | | + + + + + Comprehensive Metabolic Panel (04/14/2015 8:40 AM PST) + + + + + + | Component | Value | Ref Range | Performed | Pathologist | | | | | At | Signature | + + + + + + | Na | 145 | 136 - 149 | [facility] | [...] + + + + | CO2 | 32 (H) | 24 - 31 mmol/L | [facility] [...] + + + + | Glucose | 77 | 70 - 109 mg/dL | [facility] | | | | | | [facility] | | | | | | MEDICAL | | | | | | CENTER - | | | | | | LABORATORY | | + + + + + + | BUN | 21 [...] not | 37 (L)Comment: | >=60 | [facility] | | | | GLOMERULAR FILTRATION | mL/min/1.73m2 | [facility] | | | HAITIAN | RATE,ESTIMATED | | MEDICAL | | | | mL/min/1.64e8Musm than | | CENTER - | | [...] | | | | | mg/dL | [facility] | | | | | [...] + + + + | AST | 20 | 10 - 42 U/L | [facility] [...] + + | Globulin | 2.9 | g/dL | [facility] | | | | | | [facility] | | | | | | MEDICAL | | | | | | CENTER - | | | | | | LABORATORY | | + + + + + + | Albumin/Kalani | 1.3 | | [facility] | | | bulin Ratio | | | [facility] | | | | | | MEDICAL | | | | | | CENTER - | | | | | | LABORATORY | | + + + + + + | BUN/Creatin | 15.6 | | [facility] | | | ine [...] + + | [facility] 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
--- OUTSIDE RECORDS SUMMARY | ~2019-09-12 | XMS | Encounter Summary ---
Demographics + + + | Address | [address] | | | [place] [address] | + + + | Home Phone | | + + + | Preferred Language | Unknown | + + + | Marital Status | | + + + | Adventist Affiliation | Unknown | + + + | Race | Unknown | + + + | Ethnic Group | Unknown | + + + Author + + + | Author | [facility] | | | and [place] | + + + | Organization | [facility] | [...] | | | | | [place] [address] | | + + + + + | Valentín Saleh | ECON | [address] | | | | | [place] [address] | | + + + + + | Roberto Carlos Lennon | LEVI | Unknown | | + + + + + Care Team Providers + +------+ + | Care Telephone Installer Name | Role | Phone | + +------+ + | Francois Pascal MD | PCP | | + +------+ + Reason for Visit + +--------+ + | Reason | Onset | Comments | | | Date | | + +--------+ + | Appointment | 11/29/ | appointment on 12-06-16 needs rescheduled | | | 2016 | | + +--------+ + Encounter Details +--------+ + + + + | Date | Type | Department | Care Team | Description | +--------+ + + + + | 11/29/ | Telephone | [facility] | Leah, | Appointment | | 2016 | | CARDIOLOGY [address] | [address] | (appointment on | | | | [place], | [place], | 12-06-16 needs | | | | [place] [address] | [place] [address] | rescheduled) | | | | [phone] | [phone] | | | | | | | [...] this encounter Miscellaneous Notes Telephone Encounter - Malou Wyman - 12/02/2016 1:43 PM PDTCalled Renee Giang and spoke w jose Wong, patients appointment was rescheduled. elephone Encounter - Malou Wyman - 11/29/2016 5:35 PM PDTPati ent is scheduled to see Charla Lynn on 12-06-16. Called patient to reschedule as Charla will not be in on that day. Per patients spouse, she is currently at [facility] and he will have Renee Giang call our office to reschedule her appointment. documented in this encount er Plan of Treatment +--------+---------+ + + + | Date | Type | Specialty | Care Team | Description | +--------+---------+ + + + | 12/06/ | Office | Cardiology | Stephenie Paul, | | | 2019 | Visit | | MD [address] | | | | | | [place], | | | | | | [place] [address] | | | | | | [phone] | | | | | | | | +--------+---------+ + + + documented as of this encounter Visit Diagnoses Not on filedocumented in this encounter"
--- OUTSIDE RECORDS SUMMARY | ~2019-09-12 | XMS | Encounter Summary ---
Demographics + + + | Address | [address] | | | [place] [address] | + + + | Home Phone | | + + + | Preferred Language | Unknown | + + + | Marital Status | Single | + + + | Orthodoxy Affiliation | UNK | + + + | Race | White | + + + | Ethnic Group | Not or | + + + Author + + + | Organization | Unknown | + + + | Address | Unknown | + + + | Phone | Unavailable | + + + Support + + + + + | Name | Relationship | Address | Phone | + + + + + | Sigrid Lennon | ECON | [address] | | | | | [place] [address] | | + + + + + | None None | ECON | Unknown | Unavailable | + + + + + Care Team Providers + +------+ + | Care Fire Assistant Name | Role | Phone | + +------+ + PCP | Unavailable | + +------+ + Encounter Details +--------+ + + + + | Date | Type | Department | Care Team | Description | +--------+ + + + + | 01/05/ | [facility] | | Letter, Clinic | Letters | | 2005 | scribed | | | | +--------+ + + [...] documented as of this encounter Progress Notes Interface, Blind Stitch Machine Operator In - 01/07/2005 5:03 AM PST [id number] 01/05/2005 01/05/2005 [id number] SAJI Sheridan [address] [place] [address] or January 05, 2005 Frank Bolton MD [address] [place] [id number] RE: ALYSON LENNON MR #: [id number] Dear Quique, I did have the opportunity to meet and evaluate Alyson Lennon in the Otolaryngology Clinic at [facility] today. As you know, Mrs. Lennon is a 74-year-old female, who is here today for persistent mouth ulcers, which are quite painful to her. Apparently, in the year 1999, she developed some white spots in her mouth, and these have been biopsied twice, both of which yielded benign diagnoses. At that time they were not tender, but about four months ago, she started developing extreme tenderness in her mouth. She says that this is really all throughout her buccal areas, upper and lower lips, and tongue. She has had ulcerations noted on all of these mucosal surfaces. She has been treated for Eleanor, and recently she has been started on methotrexate 12.5 mg a week, although this has only been used for several weeks. She is not certain whether it is doing her any good. She has been using a Benadryl/Maalox mouthwash that has been suggested to her by her footwear sales representative. She has also been tried on a trial of oral steroids, which had little affect on her disease, although it did make her diabetes quite labile. Her past medical history is remarkable for hypertension, coronary artery disease, and type 2 diabetes mellitus. Current medications include lisinopril 40 mg once a day, hydrochlorothiazide 25 mg once a day, Zocor 20 mg once a day, Toprol 150 mg once a day, Benicar 40 mg once a day, methotrexate 12.5 mg once a week, vitamin D, baby aspirin, and NPH and regular insulin. Her past surgical history is remarkable for a hiatal hernia repair in 1984, a cholecystectomy in 1986, open heart surgery in 1994, and 1996. She has no known drug allergies. She is a lifelong nonsmoker, is a nondrinker. She is , lives in [place]. Her ECOG performance status is 1. On review of systems, she complains of diabetes, hypertension, unspecified heart problems, and hearing loss. Otherwise, review of systems is negative for cardiac, pulmonary, hepatic, renal, neurologic, and musculoskeletal complaints, except as noted above. On more direct review of systems, she denies any ocular complaints, any iritis, any dysuria, any other skin conditions, any throat pain. On physical examination, she is a well-developed, well-nourished white female, in no apparent distress. Her facial contour and facial nerve function are normal bilaterally. Her extraocular motions are intact bilaterally. Palpation of the neck reveals no adenopathy. There is no thyromegaly noted. Intraorally, she wears a partial denture. Her tongue and palatal mobility are normal. She has angular cheilitis bilaterally. The most impressive finding on her intraoral examination is that of diffuse shallow ulcerations involving the entirety of the wet surface of the lower lip, and some of the upper lip extending into the gingivolabial sulcus. She has ulcerative shallow lesions involving the buccal mucosa on both sides, as well as 1.0-1.5 cm lesions on the ventral surface of the tongue bilaterally. The oropharynx reveals no mucosal lesions. I sprayed her nose using phenylephrine and Lidocaine and I examined her using the flexible scope. The nasal cavity and nasopharynx, oropharynx, hypopharynx and larynx are unremarkable. 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 There have been some recent reports of the efficacy of direct injections of Kenalog into the oral lesions, in graft versus host disease patients, and I have some experience in this, and have found this to be a relatively effective and simple and safe way to deal with these lesions, and I think that before I would push her higher on her systemic immunosuppression, I think that this would be a reasonable thing to try, and she wished to try this. Therefore, we selected a small, but problematic area in her mouth, i.e., the inner aspect of the right lower lip, and its midline, and I injected this with one cc of a mixture of Kenalog 40 and 1% Lidocaine. I am going to call her back in several weeks, and see how this area responds to this. If it does respond, then I think it would be appropriate to continue with a stabilized injection of her problematic areas of her mouth. I told her that this would probably not result in a cure of her condition, but it may induce a long quiescent phase for her. I will call her back in approximately three weeks, to see how the results of the injection are progressing. I would like to thank you for allowing me to be involved in Mrs. Lennon's care. If you have any questions, please feel free to contact me, and I will keep you up to date as to her progress. Sincerely, Fabio Blankenship M.D. [facility] / [place] [id number] / [id number] / [phone] / documented i n this encounter Plan of Treatment Not on filedocumented as of this encounter Visit Diagnoses Not on filedocumented in this encounter"
--- OUTSIDE RECORDS SUMMARY | ~2019-09-12 | XMS | Encounter Summary ---
Demographics + + + | Address | [address] | | | [place] [address] | + + + | Home Phone [...] | Author | [facility] | | | and [place] | + + + | Organization | [facility] | [...] | | | | | [place] [address] | | + + + + + | Valentín Saleh | ECON | [address] | | | | | [place] [address] | | + + + + + | Roberto Carlos Lennon | LEVI | Unknown | | + + + + + Care Team Providers + +------+ + | Care Legal Financial Specialist Name | Role | Phone | + +------+ + | Francois Pascal MD | PCP | | + +------+ + Encounter Details +--------+ + + + + | Date | Type | Department | Care Team | Description | +--------+ + + + + | 09/11/ | Hospital | [facility] | Francois Pascal, | ARTHRITIS, CHRONIC; | | 2012 | Encounter | [facility] | [address] | CHRONIC KIDNEY | | | | [address] | [address], | DISEASE STAGE III | | | | [place], [place] | [place] [address] | (MODERATE); DM | | | | [address] | [phone] | (diabetes mellitus) | | | | [phone] | | (HCC) | +--------+ + + + + [...] +---------+ + + | amLODIPine | Take 1 tablet by | 90 | 1 | 05/01/19 | | | (NORVASC) 5 mg | mouth Daily. | tablet | | 13 | 3 | | tablet | | [...] + + + +---------+ + + | ergocalciferol | Take 50,000 Units by | | 0 | | | | (VITAMIN D-2) 50,000 | mouth Once a week. | | | | 4 | | units capsule | | | [...] tablet by | 90 | 3 | 05/11/19 | | | tablet | mouth Daily. | tablet | | 13 | 4 | + + + +---------+ + + | furosemide (LASIX) | TAKE 1 TABLET BY | 90 | 3 | 07/14/19 | | | 40 mg tablet | MOUTH EVERY DAY | tablet | | 13 | 4 | + + + +---------+ + + | insulin glargine | Inject 105 Units | | 0 | 08/18/19 | | | (LANTUS) 100 | under the skin | | | 13 | 3 | | units/mL injection | nightly. | | | | | + + + +---------+ + + | JANUVIA 100 MG | TAKE 1 TABLET BY | 90 each | 1 | 03/09/19 | | | tablet | MOUTH EVERY DAY | | | 13 | 3 | + + + +---------+ + + | LIDEX 0.05 % cream | APPLY ONE DAUB | 60 g | 0 | 04/03/19 | | | | TOPICALLY ONCE DAILY | | | 13 | 4 | + + + +---------+ + + | lisinopril | TAKE 1 TABLET BY | 90 | 3 | 08/03/19 | | | (PRINIVILGINASTRIL) | MOUTH EVERY DAY | tablet | | 13 | 4 | | 40 MG tablet | | | | | | + + + +---------+ + + | methotrexate 2.5 | TAKE 5 TABLETES BY | 20 | 1 | 09/05/19 | | | mg tablet | MOUTH WEEKLY | tablet | | 13 | 3 | + + + +---------+ + + | multivitamin | Take 1 by mouth | | 0 | 11/18/19 | | | (THERAGRAN) per | daily | | | 12 | 9 | | tablet | | | | | | + + + +---------+ + + | niacin (NIASPAN) | Take 1 tablet by | 30 | 6 | 05/11/19 | | | 500 mg CR tablet | mouth Daily. | tablet | | 13 | 3 | + + + +---------+ + + | NOVOLOG 100 | INJECT DIRECTED, | 20 mL | 5 | 04/06/19 | | | UNIT/ML injection | 15 UNITS IN THE | | | 13 | 3 | | | MORNING, 20 UNITS | | | | | | | BEFORE LUNCH AND 25 | | | | | | | UNITS BEFORE DINNER | | | | | + + + +---------+ + + | simvastatin | TAKE 1/2 TABLET BY | 135 | 1 | 08/19/19 | | | (ZOCOR) 40 mg tablet | MOUTH EVERY DAY | tablet | | 13 | 4 | + + + +---------+ [...] encounter Progress Notes Francois Pascal MD - 09/12/2012 4:33 PM PDT Quick Note: Ok for ma to notify patient that he has somewhat abnormal labs and would like to discuss john brody a month. documented in thi s encounter [...] [place], | | | | | | [place] [address] | | | | | | [phone] | | | | | | | | +--------+---------+ + + + documented as of this encounter Procedures + +--------+ + + + | Procedure Name | Priori | Date/Time | Associated Diagnosis | Comments | | | ty | | | | + +--------+ + + + | CBC WITH | Routin | 09/11/2012 | | Results for this | | DIFFERENTIAL | e | 9:03 AM | | procedure are in the | | | | PDT | | results section. | + +--------+ + + + | PHOSPHORUS | Routin | 09/11/2012 | | Results for this | | | e | 9:03 AM | | procedure are in the | | | | PDT | | results section. | + +--------+ + + + | PARATHYROID HORMONE, | Routin | 09/11/2012 | CHRONIC KIDNEY | Results for this | | INTACT | e | 9:03 AM | DISEASE STAGE III | procedure are in the | | | | PDT | (MODERATE) | results section. | + +--------+ + + + | HEMOGLOBIN A1C | Routin | 09/11/2012 | | Results for this | | | e | 9:03 AM | | procedure are in the | | | | PDT | | results section. | + +--------+ + + + | RENAL FUNCTION PANEL | Routin | 09/11/2012 | | | | | e | 9:03 AM | | | | | | PDT | | | + +--------+ + + + | COMPREHENSIVE | Routin | 09/11/2012 | | Results for this | | METABOLIC PANEL | e | 9:03 AM | | procedure are in the | | | | PDT | | results section. | + +--------+ + + + documented in this encounter Results Phosphorus (09/11/2012 9:03 AM PDT) + +-------+ + + + | Component | Value | Ref Range | Performed | Pathologist | | | | | At | Signature | + +-------+ + + + | Phosphorus | 4.0 | 2.5 - 4.6 mg/dL | [facility] | | [facility] | | | - [facility]ORY | + + + + + + + + | Performing | Address | City/State/Zipcode | Phone Number | | Organization | | | | + + + + + | [facility] | [address] | [place], [place] | [phone] | | [facility] | | [address] | | | - LABORATORY | | | | + + + + + | [facility] | [address] | [place], [place] | | | [facility] | | [address] | | | - LABORATORY | | | | + + + + + CBC with Differential (09/11/2012 9:03 AM PDT) + + + + + + | Component | Value | Ref Range | Performed | Pathologist | | | | | At | Signature | + + + + + + | White Blood | 8.8 | 4.0 - 11.0 K/uL | [facility] [...] + + + + | Hematocrit | 42.5 | 34.0 - 47.0 % | [facility] | [facility] | | | | | | [facility] | | | | | [facility] - | | | | | | LABORATORY | | + + + + + + | MCV | 107.8 (H) | 83.0 - 101.0 fL | [facility] | | | | | [facility] | | | [facility] | [facility] | | | | | | [facility] - | | | | | | LABORATORY | | + + + + + + | MCH | 35.4 (H) | 28.0 - 35.0 pg | [...] + + + + | Platelet | 176 | 140 - 440 K/uL | [facility] | | | Count | | | [facility] | | | | | | [facility] | | | | | | C[facility] - | | | | | | LABORATORY | | + + + + + + | % | 51.6 | 45 - 75 % | [facility] | | | Neutrophils | | | [facility] | | | | | | [facility] | | | | | | CENTER - | | | | | | LABORATORY | | + + + + + + | % | 29.9 | 20 - 45 % | [facility] | | | Lymphocytes | | | [facility] | | | | | | [facility] | | | | | | CENTER - | | | | | | LABORATORY | | + + + + + + | % Monocytes | 12.3 (H) | 4 - 12 % | [facility] | | | | | | [facility] | | | | | | [facility] | | | | | | C[facility] - | | | | | | LABORATORY | | + + + + + + | % | 5.3 (H) | 0 - 5 % | [facility] | | | Eosinophils | | | [facility] | | | | | | [facility] | | | | | | CENTER - | | | | | | LABORATORY | | + + + + + + | % Basophils | 0.9 | 0 - 1 % | [facility] | | | | | | [facility] | | | | | | [facility] | | | | | | [facility] - | | | | | | LABORATORY | | + + + + + + | Absolute | 4.6 | 1.5 - 6.6 K/uL | [facility] | | | Neutrophils | | | [facility] | | | | | | [facility] | | | | | | CENTER - | | | | | | LABORATORY | | + + + + + + | Absolute | 2.6 | 0.6 - 3.2 K/uL | [facility] | | | Lymphocytes | | | [facility] | | | | | | [facility] | | | | | | CENTER - | | | | | | LABORATORY | | + + + + + + | Absolute | 1.1 (H) | 0.0 - 1.0 K/uL | [facility] | | | Monocytes | | | [facility] | | | | | | [facility]ICAL | | | | | | CENTER - | | | | | | LABORATORY | | + + + + + + | Absolute | 0.5 (H) | 0.0 - 0.4 K/uL | [...] + | [facility] | [address] | [place] | [phone] | | [facility] | | [address] | | | - LABORATORY | | | | + + + + + | [facility] | [address] | [place] | | | [facility] | | [address], [facility] | | | - LABORATORY | | | | + + + + + Hemoglobin A1C (09/11/2012 9:03 AM PDT) + + + + + + | Component | Value | Ref Range | Performed | Pathologist | | | | | At | Signature | + + + + + + | Hemoglobin | 7.3 (H)Comment: | 4.3 - 5.8 % | [facility] | | | A1c | DIABETIC PATIENT RANGES: | | [facility] | | | | 6.2-7.0% = Well [...] + | [facility] | [address] | [place] | [phone] | | [facility] | | [address] | | | - LABORATORY | | | | + + + + + | [facility] | [address] | [place], [place] | | | [facility] | | [id number] [place] [address] | | | - LABORATORY | | | | + + + + + Comprehensive Metabolic Panel (09/11/2012 9:03 AM PDT) + + + + + + | Component | Value | Ref Range | Performed | Pathologist | | | | | At | Signature | + + + + + + | Glucose | 105 | 70 - 109 mg/dL | [facility] [...] + + + + | Alkaline | 58 | 40 - 110 IU/L | [facility] | | | Phosphatase | | | [facility] | | | | | | [facility]ICAL | | | | | | CENTER - | | | | | | LABORATORY | | + + + + + + | AST | 23 | 10 - 42 IU/L | [facility] | | | | | | [facility] | | | | | | [facility] | | | | | | CENTER - | | | | | | LABORATORY | | + + + + + + | ALT | 18 | 6 - 45 IU/L | [facility] [...] + + + + | Total | 6.8 | 6.0 - 7.8 gm/dL | [facility] | | | Protein | | | [facility] | | | | | | [facility]ICAL | | | | | | CENTER - | | | | | | LABORATORY | | + + + + + + | Albumin | 3.8 | 3.2 - 5.0 gm/dL | [facility] | | | | | | [facility] | | | | | | [facility] | | | | | | CENTER - | | | | | | LABORATORY | | + + + + + + | BUN | 20 (H) | 7 - 18 mg/dL | [facility] | | | | | [facility] | | | | | | [facility] | | | | | | CENTER - | | | | | | LABORATORY | | + + + + + + | Creatinine | 1.32 (H) | 0.60 - 1.30 | [facility] | | | | | mg/dL | [facility] | | | | | | [facility]ICAL | | | | | | CENTER - | | | | | | LABORATORY | | + + + + + + | Estimated | 39 (L)Comment: For | >60 mL/min/A | [facility] [...] + + + + | BUN/Creatin | 15.2 | 12 - 20 | [facility] | | | ine Ratio | | | [facility] | | | | | | MEDICAL | | | | | | CENTER - | | | | | | LABORATORY | | + + + + + + | Na | 138 | 136 - 149 mEq/L | [facility] | | | | | | [facility] | | | | | | MEDICAL | | | | | | CENTER - | | | | | | LABORATORY | | + + + + + + | K | 4.2 | 3.5 - 5.1 mEq/l | [facility] [...] + + + + | CO2 | 28 | 24 - 31 mEq/L | [facility] | | | | | | [facility] | | | | | | [facility]ICAL | | | | | | CENTER - | | | | | | LABORATORY | | + + + + + + | Anion Gap | 14.2 | 6.0 - 17.0 | [facility] | [...] + | [facility] | [address] | [place], [place] | [phone] | | [facility] | | [address] | | | - LABORATORY | | | | + + + + + | [facility] | [address] | [place], [place] | | | [facility] | | [address], [facility] | | | - LABORATORY | | | | + + + + + Renal Function Panel (09/11/2012 9:03 AM PDT) + + | Specimen | + + | Blood specimen | | (specimen) | + + Parathyroid Hormone, Intact (09/11/2012 9:03 AM PDT) + + + + + + | Component | Value | Ref Range | Performed | Pathologist | | | | | At | Signature | + + + + + + | PTH INTACT | 39Comment: Testing | 12 - 88 pg/mL | [facility] | | | | performed on the [facility] | | [facility] | | | | [facility] | | MEDICAL | | | | Analyzer. | | CENTER - | | | | | | LABORATORY | | + + + + + + | Calcium | 9.4 | 8.3 - 10.5 | [facility] | [...] + | [facility] | [address] | [place] | [phone] | | [facility] | | [address] | | | - LABORATORY | | | | + + + + + | [facility] | [address] | [place], [place] | | | [facility] | | [address] | | | - LABORATORY | | | | + + + + + documented in this encounter Visit Diagnoses + + | Diagnosis | + + | ARTHRITIS, CHRONIC Arthropathy, unspecified, site unspecified | + + | CHRONIC KIDNEY DISEASE STAGE III (MODERATE) Chronic kidney disease, Stage III | | (moderate) | + + | DM (diabetes mellitus) (HCC) Type II or unspecified type diabetes mellitus without | | mention of complication, not stated as uncontrolled | + + documented in this encounter"
--- OUTSIDE RECORDS SUMMARY | ~2019-09-12 | XMS | Encounter Summary ---
Demographics + + + | Address | [address] | | | [place] [address] | + + + | Home Phone [...] | [facility] | | | and [place] | + + + | Organization | [facility] | [...] | | | | | [place] [address] | | + + + + + | Valentín Saleh | ECON | [address] | | | | | [place] [address] | | + + + + + | Roberto Carlos Lennon | LEVI | Unknown | | + + + + + Care Team Providers + +------+ + | Care Labor Relations Manager Name | Role | Phone | + +------+ + | Francois Pascal MD | PCP | | + +------+ + Reason for Visit + +--------+ + | Reason | Onset | Comments | | | Date | | + +--------+ + | SNF Discharge | 10/13/ | | | | 2019 | | + +--------+ + Encounter Details +--------+ + + + + | Date | Type | Department | Care Team | Description | +--------+ + + + + | 10/13/ | Telephone | [facility] | Francois Pascal, | SNF Discharge | | 2019 | | [facility] [place] | [address] | | | | | [address] | [address], | | | | | [place] | [place] [address] | | | | | [address] | [phone] | | | | | [phone] | | | +--------+ + + + [...] this encounter Miscellaneous Notes Telephone Encounter - Diamond Sebastian RN - 10/17/2018 11:19 AM PDTSuzie from [facility] calls in to check status of discharge order. They are needing this order as soon as possibl e. Order was in media tab. Printed and routed to the bowling floor desk clerk. Na is going to come pick u p order now. eleph one Encounter - Ayanna Mederos RN - 10/17/2018 9:14 AM PDTReceived phone call [facility]. Asking if we can please refax the note that says she can be discharged. Per message above, this was written by Dr Thayer on 02/12. Phone [phone] FAX [phone] elephone Encount er - Yamileth Bah RN - 10/16/2018 11:16 AM PDTNorco paperwork being addressed in sepa rate encounter. Please fax note to [facility]. elephone Encounter - Roshni Nance - 10/16/2018 11:03 AM PDTRenee Giang called stating to please fax paperwork to [phone]. Also stated [facility] needs paperwork for [facility] medical supplies. el ephone Encounter - Sherlyn Fritz - 10/13/2018 1:50 PM PDTLeft message with Francisca nguyen [facility] that note is ready to be picked up. Placed in cabinet. elephone Encounter - Roberto Carlos Thayer MD - 10/13/2018 12:50 PM PDTSigned and in folder to Front Office. Thanks! Federico Thayer MD elephone Encounter - Lisa Pittman RN - 10/13/2018 11:45 AM PDTScheduled patient for SNF discharge . (not a TCM) Message forwarded onto Francisca nguyen [facility] also. elephone Encounter - Diamond Sebastian RN - 9 11:45 AM PDTJustine with [facility] and reports that the patient is getting ready to discharge to adult family home. has authorized this. [facility]. [facility] aly needs a signed order from a provider stating that it okay for patient to [facility] today 10/13/2018 Francisca EXT 9820 1 1:48 AM PDTTelephone Encounter - Ayanna Mederos RN - 10/13/2018 10:43 AM PDTReceived p nelly call from Francisca [facility]. Patient has been preparing to discharge to an Adult Family Home in [place]. Today, they notified her that they would like to transfer her today. She has faxed over discharge orders for Dr Pascal. Explained to Francisca that Dr Pascal is out of the office on Tuesday's so Tuesday will be the soonest he will be able to address this request. She will let the Adult Home know. documented in thi s encounter Plan of Treatment +--------+---------+ + + + | Date | Type | Specialty | Care Team | Description | +--------+---------+ + + + | 12/06/ Office | Cardiology | Stephenie Paul, | | | 2019 | Visit | | MD Bob Sheehan | | | | | | [place], | | | | | | [place] [address] | | | | | | [phone] | | | | | | | | +--------+---------+ + + + documented as of this encounter Visit Diagnoses Not on filedocumented in this encounter"
--- OUTSIDE RECORDS SUMMARY | ~2019-09-12 | XMS | Encounter Summary ---
Demographics + + + | Address | [address] | | | [place] [address] | + + + | Home Phone [...] Author | [facility] | | | and [place] | + + + | Organization | [facility] | | | and [...] | | | | | [place] [address] | | + + + + + | Valentín Saleh | ECON | [address] | | | | | [place] [address] | | + + + + + | Roberto Carlos Lennon | LEVI | Unknown | | + + + + + Care Team Providers + +------+ + | Care Communications Department Chairperson Name | Role | Phone | + +------+ + | Francois Pascal MD | PCP | | + +------+ + Reason for Visit + + + | Reason | Comments | + + + | Follow-up | | + + + | Coronary Artery | | | Disease | | + + + Encounter Details +--------+---------+ + + + | Date | Type | Department | Care Team | Description | +--------+---------+ + + + | 06/03/ | Office | [facility] | Leah, | Hypertension, renal | | 2016 | Visit | CARDIOLOGY [address] | LAURO Dunham [address] | disease, stage 1-4 | | | | [place], | [place], | or unspecified | | | | [place] [address] | [place] [address] | chronic kidney | | | | [phone] | [phone] | disease (Primary | | | | | | Dx); Coronary artery | | | | | | disease involving | | | | | | chickaloon coronary | | | | | | artery of chickaloon | | | | | | heart without angina | | | | | | pectoris; | | | | | | Hyperlipidemia, | | | | | | mixed | +--------+---------+ + + + Social History [...] + + + | Blood Pressure | 118/70 | 06/03/2016 10:42 AM | | | | | PDT | | + + + + + | Pulse | 64 | 06/03/2016 10:42 AM | | | | | PDT | | + + + + + | Temperature | - | - | | + + + + + | Respiratory Rate | 16 | 06/03/2016 10:42 AM | | | | | PDT | | + + + + + | Oxygen Saturation | - | - | | + + + + + | Inhaled Oxygen | - | - | | | Concentration | | | | + + + + + | Weight | 69.9 kg (154 lb) | 06/03/2016 10:42 AM | | | | | PDT | | + + + + + | Height | 157.5 cm (5' 2") | 06/03/2016 10:42 AM | | | | | PDT | | + + + + + | Body Mass Index | 28.17 | 06/03/2016 10:42 AM | | | | | PDT | | + + + + + documented in this encounter Progress Notes Charla Lynn ARNP - 06/03/2016 10:32 AM PDTFormatting of this note might be differen t from the original. PATIENT NAME: Alyson Lennon : 1930: AGE: 85 y.o. PRIMARY CARE: Francois Pascal MD OUTPATIENT FOLLOW UP VISIT Date of Service: 06/03/2016 HISTORY OF PRESENT ILLNESS: Alyson Lennon is a 85 y.o. female with a history of coronary artery disease, essential hy pertension, mixed hyperlipidemia, and type 2 diabetes, stage III chronic kidney disease. Carmelo blunt is being seen today for follow up preoperative cardiac risk assessment for ankle surgery She was last seen 01/12/2016 at which time she was to start taking aspirin 81 mg once every day, switch to atorvastatin, and follow up in 3-4 months. Since that time, she has been "f eeling good". She has had a fair energy level. She has not been very active. This is mostly because of her ankle. She has not had any chest pain or discomfort at rest or with exertion . She has not noticed shortness of breath. She has not had any lightheadedness or dizzine ss. She has not noticed palpitations. She has noticed leg swelling has improved since her last visit. She is able to sleep laying down at night without any symptoms of shortness of breath. She has no cardiac complaints and she still lives independently with her . MEDICAL, SURGICAL, AND PERSONAL HISTORY Past Medical, Surgical, Family, and Social History are reviewed in EPIC. CURRENT PROBLEMS Patient Active Problem List Diagnosis CAROTID STENOSIS AMAUROSIS FUGAX DEMYELINATING DISEASE, CENTRAL NERVOUS SYSTEM FRACTURE, ANKLE, LEFT Gout, unspecified OSTEOARTHRITIS, ANKLE, LEFT FATIGUE VIRAL URI HYPERTRIGLYCERIDEMIA VITAMIN D DEFICIENCY Hypertension, renal disease DM type 2, uncontrolled, with renal complications Glossitis Coronary artery disease involving chickaloon coronary artery of chickaloon heart without angina pectoris Hyperlipidemia, mixed AMI [...] blood pressure less than 130/80 Skin cancer CURRENT MEDICATIONS Current Outpatient Prescriptions Medication Sig Dispense Refill allopurinol (ZYLOPRIM) 100 mg tablet TAKE ONE TABLET BY MOUTH TWICE A DAY (Patient antonio regalado differently: TAKE ONE TABLET BY MOUTH ONCE A DAY) 180 tablet 2 amLODIPine (NORVASC) 5 mg tablet TAKE ONE TABLET BY MOUTH EVERY DAY 90 tablet 3 aspirin (ASPIRIN EC) 81 MG EC tablet Take 1 tablet by mouth Daily. atorvaSTATin (LIPITOR) 40 mg tablet Take 1 tablet by mouth nightly. 90 tablet 3 Jxlugfv-Irvilkssu-Gukvbjs D (CALCIUM 500 PO) Take 1 capsule by mouth Daily. colchicine 0.6 mg tablet 1-2 tablets by mouth as needed folic acid 1 mg tablet Take 1 tablet by mouth Daily. 90 tablet 1 furosemide (LASIX) 40 mg tablet TAKE ONE TABLET BY MOUTH EVERY DAY 90 tablet 3 HYDROcodone-acetaminophen (NORCO) 5-325 mg per tablet Take 1 tablet by mouth as needed. insulin aspart (NOVOLOG) 100 units/mL injection 37 units under the skin TID prior to me als 20 mL 3 insulin glargine (LANTUS) 100 units/mL injection (vial) 60 units every morning and 60 u nits every evening 50 mL 6 lisinopril (PRINIVIL, ZESTRIL) 20 mg tablet TAKE ONE TABLET BY MOUTH EVERY DAY 30 table t 11 methotrexate 2.5 mg tablet TAKE 5 TABLETS BY MOUTH ONCE WEEKLY 20 tablet 2 metoprolol succinate (TOPROL-XL) 200 mg ER tablet TAKE ONE TABLET BY MOUTH EVERY DAY 90 tablet 3 multivitamin (THERAGRAN) per tablet Take 1 by mouth daily SITagliptin (JANUVIA) 100 mg tablet TAKE ONE TABLET BY MOUTH EVERY DAY 90 tablet 1 No current facility-administered medications for this visit. ALLERGIES Allergies Allergen Reactions Codeine Sulfate Nausea And Vomiting Darvon Nausea Only Estrogens Patient can't remember Pneumococcal Vaccines Other (See Comments) Thinks it was a Prevnar, arm became red/sore/swollen ROS Review of Systems Constitutional: Positive for malaise/fatigue. Negative for fever, chills, weight loss and d iaphoresis. HENT: Positive for hearing loss. Negative for congestion, nosebleeds and tinnitus. Dental Problems = No Eyes: Negative for blurred vision and double vision. Respiratory: Negative for shortness of breath. Cardiovascular: Negative for chest pain, palpitations and leg swelling. Gastrointestinal: Negative for nausea, vomiting, diarrhea, constipation and blood in stool. Genitourinary: Negative for dysuria, urgency, frequency and hematuria. Musculoskeletal: Positive for myalgias and joint pain. Negative for back pain, falls and ne ck pain. Gait Problems = No Skin: Negative for itching and rash. Neurological: Positive for weakness. Negative for dizziness, tingling, tremors, speech garcia ge, seizures and loss of consciousness. Lightheaded = No Endo/Heme/Allergies: Does not bruise/bleed easily. Psychiatric/Behavioral: Negative for memory loss. The patient is not nervous/anxious and do es not have insomnia. OBJECTIVE: PHYSICAL EXAM BP 118/70 mmHg | Pulse 64 | Resp 16 | Ht 1.575 m (5' 2") | Wt 69.854 kg (154 lb) | BMI 28.1 6 kg/m2 Physical Exam Constitutional: She is oriented to person, place, and time. She appears well-developed and well-nourished. No distress. Elderly, female individual arrived with the walker without acute distress. Neck: Normal carotid pulses, no hepatojugular reflux and no JVD present. Carotid bruit is n ot present. Cardiovascular: Normal rate, regular rhythm, S1 normal, S2 normal, intact distal pulses and normal pulses. PMI is not displaced. Exam reveals no gallop, no S3, no S4 and no friction rub. Murmur heard. Pulses: Carotid [...] no rhonchi. She has no rales. Abdominal: Soft. Normal appearance, normal aorta and bowel sounds are normal. She exhibits no abdominal bruit. There is no hepatosplenomegaly. There is no tenderness. Musculoskeletal: She exhibits edema (trace leg swelling, in compression stockings). Neurological: She is alert and oriented to person, place, and time. Gait normal. Skin: Skin is warm and dry. No cyanosis. Nails show no clubbing. Psychiatric: She has a normal mood and affect. Her mood appears not anxious. She does not e xhibit a depressed mood. ECG: I personally independently reviewed ECG tracing during this visit (interpreted and sadia led by another provider): Results for orders placed or performed in visit on 06/02/2016 ECG 12 lead Result Value Ref Range INTERPRETATION TEXT Sinus rhythm with 1st degree AV block RBBB hear rate 65 bpm LAB RESULTS reviewed during visit today primarily from [facility]: LIPID Lab Results Component Value Date CHOL 136* 05/27/2016 TRIG 208* 05/27/2016 HDL 35 05/27/2016 LDL 59 05/27/2016 CHOLHDL 3.9 05/27/2016 CHEMISTRY Lab Results Component Value Date GLU 86 05/27/2016 NA 144 05/27/2016 K 4.1 05/27/2016 CL 105 05/27/2016 CO2 29 05/27/2016 CALCIUM 9.5 05/27/2016 ALKPHOS 57 05/27/2016 AST 37 05/27/2016 ALT 27 05/27/2016 BILITOT 0.7 05/27/2016 CREA 1.05 05/27/2016 BUN 14 05/27/2016 EGFR 40* 02/26/2013 HEMATOLOGY Lab Results Component Value Date WBC 11.0 05/27/2016 HGB 14.5 05/27/2016 HCT 43.4 05/27/2016 PLT 208 05/27/2016 I reviewed records from PCP for office visit on 05/2016 with changes to insulin. Echocardiogram, 03/11/2016 shows mild left atrial dilatation, normal left ventricular size, w all thickness and motion, preserved left ventricular systolic function, LVEF is 55%, mildly thickened and calcified mitral valve with a mild mitral valve regurgitation, moderate mitral annular calcification, mildly thickened and calcified trileaflet aortic valve with adequate opening, there is aortic valve sclerosis without significant aortic valve stenosis, there i s a mild aortic valve insufficiency, normal right-sided pressure, mild ascending aorta dilat ation measuring 4.1 cm in diameter, normal IVC with normal respiratory collapse. Above data and testing is reviewed this visit; testing below is historical data unless othe rwise specified. ASSESSMENT: 1. Preoperative cardiac risk assessment for left ankle surgery: A. She is on a combination of baby aspirin, lisinopril, metoprolol, simvastatin and amlodi pine. She is undergoing an elective, non-emergent surgery and would benefit from a cardiac risk a ssessment. Her Revised Cardiac Risk Index (RCRI) is calculated showing his risks include c oronary artery disease and diabetes on insulin, which is 2 risks equating to Class III, epifanio mated 6.6% risk of MACE. This is considered an elevated risk. Her Saul Activity Status Ind ex (DASI) score is calculated and shows she has a functional capacity of 4 METS and does not require any further testing. She is on a beta sloane, and is on HMG CoA reductase inhib itor (statin). She will change simvastatin to atorvastatin. Prior to proceeding with surge ry, the risk and benefit of the procedure need to be discussed between patient and surgeon. 2. Extensive history of coronary artery disease involving chickaloon coronary artery of chickaloon heart without angina pectoris: A. 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 B. History of an inferior wall myocardial infarction status post CABG x3 in . C. An exercise myoview stress test in 2002 revealed a medium-sized scar of the anteroseptal region. LVEF by gated SPECT was 56%. D. Echocardiogram, 03/11/2016 shows mild left atrial dilatation, normal left elena tricular size, wall thickness and motion, preserved left ventricular systolic function, LVEF is 55%, mildly thickened and calcified mitral valve with a mild mitral valve regurgitation, moderate mitral annular calcification, mildly thickened and calcified trileaflet aortic vernon ve with adequate opening, there is aortic valve sclerosis without significant aortic valve s tenosis, there is a mild aortic valve insufficiency, normal right-sided pressure, mild ascen ding aorta dilatation measuring 4.1 cm in diameter, normal IVC with normal respiratory colla pse. E. Today, patient is doing well from cardiac standpoint. Patient is asymptomatic but not p hysically active due to the left ankle injury/pain. Her physical activity has been slowing down because of her ankle.There is no signs and symptoms of overt congestive heart failure. Patient is in a class I of [place] [employer] functional class. Physical exam shows trace trace edema to her left foot and ankle from her old fractured ankle. 3. Hyperlipidemia, mixed: A. She is on atorvastatin 4. Essential hypertension with goal blood pressure less than 130/80: A. Today blood pressure is well controlled. 5. Stage III chronic kidney disease suspecting diabetic nephropathy A. This has been stable and improved. 6. Diabetes. A. on insulin. 6. Obesity and Inactivity PLAN: 1. She is on a combination of baby aspirin, lisinopril, metoprolol, simvastatin and amlodip ine. She is undergoing an elective, non-emergent surgery and would benefit from a cardiac risk a ssessment. Her Revised Cardiac Risk Index (RCRI) is calculated showing his risks include c oronary artery disease and diabetes on insulin, which is 2 risks equating to Class III, epifanio mated 6.6% risk of MACE. This is considered an elevated risk. Her Saul Activity Status Ind ex (DASI) score is calculated and shows she has a functional capacity of 4 METS and does not require any further testing. She is on a beta sloane, and is on HMG CoA reductase inhib itor (statin). She will change simvastatin to atorvastatin. Prior to proceeding with surge ry, the risk and benefit of the procedure need to be discussed between patient and surgeon. 2. She will follow up in 6 months, or sooner with concerns. Portions of this chart may have been created with Dragon voice recognition software. Occasi onal wrong-word or sound-alike substitutions may have occurred due to the inherent greene itations of voice recognition software. Please read the chart carefully and recognize, using context, where these substitutions have occurred. documented in th is encounter Plan of Treatment +--------+---------+ + + + | Date | Type | Specialty | Care Team | Description | +--------+---------+ + + + | 12/06/ | Office | Cardiology | Stephenie Paul, | | | 2019 | Visit | | MD Bob Vasquez [place] | | | | | | [place], | | | | | | [place] [address] | | | | | | [phone] | | | | | | | | +--------+---------+ + + + documented as of this encounter Visit Diagnoses + + | Diagnosis | + + | Hypertension, renal disease, stage 1-4 or unspecified chronic kidney disease - Primary | + + | Coronary artery disease involving chickaloon coronary artery of chickaloon heart without | | angina pectoris | + + | Hyperlipidemia, mixed Mixed hyperlipidemia | + + documented in this encounter
--- OUTSIDE RECORDS SUMMARY | ~2019-09-12 | XMS | Encounter Summary ---
Demographics + + + | Address | [address] | | | [place] [address] | + + + | Home Phone | | + + + | Preferred Language | Unknown | + + + | Marital Status | | + + + | Latter-Day Affiliation | Unknown | + + + | Race | Unknown | + + + | Ethnic Group | Unknown | + + + Author + + + | Author | [facility] | | | and [place] | + + + | Organization | [facility] | | | and [...] | | | | | [place] [address] | | + + + + + | Valentín Saleh | ECON | [address] | | | | | [place] [address] | | + + + + + | Roberto Carlos Lennon | LEVI | [place] | | + + + + + Care Team Providers + +------+ + | Care Proposal Lead Writer Name | Role | Phone | + +------+ + PCP | Unavailable | + +------+ + Encounter Details +--------+ + + + + | Date | Type | Department | Care Team | Description | +--------+ + + + + | 09/26/ | Hospital | [facility] | Moris Isabel | | | 2007 | Encounter | MED CTR LABORATORY | MD Priscila [address] | | | | | [address] [place] | [address] [place] | | | | | [place] | [place], [place] [address] | | | | | [address] | [phone] | | | | | [phone] | | | +--------+ + + + [...] | | | | | | [place] [address] | | | | | | [phone] | | | | | | | | +--------+---------+ + + + documented as of this encounter Visit Diagnoses Not on filedocumented in this encounter"
--- OUTSIDE RECORDS SUMMARY | ~2019-09-12 | XMS | Encounter Summary ---
Demographics + + + | Address | [address] | | | [place] [address] | + + + | Home Phone | | + + + | Preferred Language | Unknown | + + + | Marital Status | | + + + | Spiritism Affiliation | Unknown | + + + | Race | Unknown | + + + | Ethnic Group | Unknown | + + + Author + + + | Author | [facility] | | | and [place] | + + + | Organization | [facility] | | | and [place] | + + + | Address | Unknown | + + + | Phone | Unavailable | + + + Support + + + + + | Name | Relationship | Address | Phone | + + + + + | Sigrid Lennon | ECON | [address] | | | | | [place] [address] | | + + + + + | Valentín Saleh | ECON | [phone] | | | | | [place] [address] | | + + + + + | Roberto Carlos Lennon | LEVI | [place] | | + + + + + Care Team Providers + +------+ + | Care Manager Beverage Name | Role | Phone | + +------+ + PCP | Unavailable | + +------+ + Encounter Details +--------+ + + + + | Date | Type | Department | Care Team | Description | +--------+ + + + + | 10/20/ | Hospital | [facility] | | | | 1999 | Encounter | MED CTR ICU [address] | | | | | | [place], | | | | | | [place] [address] | | | | | | [phone] | | | +--------+ + + + [...] 12/06/ | Office | Cardiology | Stephenie aPul, | | | 2019 | Visit | | MD Bob [address] | | | | | | [place], | | | | | | [place] [address] | | | | | | [phone] | | | | | | | | +--------+---------+ + + + documented as of this encounter Visit Diagnoses Not on filedocumented in this encounter"
--- OUTSIDE RECORDS SUMMARY | ~2019-09-12 | XMS | Encounter Summary ---
Demographics + + + | Address | [address] | | | [place] [address] | + + + | Home Phone [...] + | Author | [facility] | | | and [place] | + + + | Organization | [facility] [...] | | | | | [place] [address] | | + + + + + | Valentín Saleh | ECON | [address] | | | | | [place] [address] | | + + + + + | Roberto Carlos Lennon | LEVI | Unknown | | + + + + + Care Team Providers + +------+ + | Care Steel Sash Erector Name | Role | Phone | + +------+ + | Francois Pascal MD | PCP | | + +------+ + Reason for Visit + +--------+ + | Reason | Onset | Comments | | | Date | | + +--------+ + | Medication Refill | 11/13/ | | | | 2018 | | + +--------+ + Encounter Details +--------+--------+ + + + | Date | Type | Department | Care Team | Description | +--------+--------+ + + + | 11/13/ | Refill | [facility] | Francois Pascal, | Medication Refill | | 2018 | | [facility] | [address] | | | | | [address] | [address] [place], | | | | | [place] | [place] [address] | | | | | [address] | [phone] | | | | | [phone] | | | +--------+--------+ + + + [...] this encounter Miscellaneous Notes Telephone Encounter - Cassy Garsia RN - 11/14/2018 8:54 AM PDTOn past medication list. New prescription pended for your review.Electronically signed by Cassy Garsia RN at 11/05 8:55 AM PDTTelephone Encounter - Roshni Nance - 11/13/2018 3:29 PM PDTMedication: Allopurinol Strength: 100mg Directions: Twice daily Quantity: unknown Pharmacy: [facility] in [place] Date of Last Refill: Unknown Date of Last Visit: 10/10/18 Date of Next Visit: No future appointment Bridget from [facility] called stating [facility] never received request, ple ase advise. documented in is encounter Plan of Treatment +--------+---------+ + + + | Date | Type | Specialty | Care Team | Description | +--------+---------+ + + + | 12/06/ | Office | Cardiology | Stephenie Paul, | | | 2019 | Visit | | MD Bob Shee[address] | | | | | | [place], | | | | | | [place] [address] | | | | | | [phone] | | | | | | | | +--------+---------+ + + + documented as of this encounter Visit Diagnoses Not on filedocumented in this encounter"
--- OUTSIDE RECORDS SUMMARY | ~2019-09-12 | XMS | Encounter Summary ---
Demographics + + + | Address | [address] | | | [place] [address] | + + + | Home Phone [...] [facility] | | | and [place] | + + + | Organization | [facility] | | [...] | | | | | [place] [address] | | + + + + + | Valentín Saleh | ECON | [address] | | | | | [place] [address] | | + + + + + | Roberto Carlos Lennon | LEVI | Unknown | | + + + + + Care Team Providers + +------+ + | Care Fitness Professional Name | Role | Phone | + +------+ + | Francois Pascal MD | PCP | | + +------+ + Reason for Visit + +--------+ + | Reason | Onset | Comments | | | Date | | + +--------+ + | Appointment | 05/21/ | NO SHOW ON 04-30-16 NEEDS RESCHEDULED | | | 2016 | | + +--------+ + Encounter Details +--------+ + + + + | Date | Type | Department | Care Team | Description | +--------+ + + + + | 05/21/ | Telephone | [facility] [place] | Stephenie Paul, | Appointment (NO SHOW | | 2016 | | CARDIOLOGY [address] | ON 04-30-16 NEEDS | | | | [place], | [place], | RESCHEDULED) | | | | [place] [address] | [place] [address] | | | | | [phone] | [phone] | | | | | | | [...] Notes Telephone Encounter - Malou Wyman - 05/25/2016 10:17 AM PDTCalled patient and reschedule d her appointment to 06-03-16 at [address] Corado's next available wou ld be in late June. elepho ne Encounter - Malou Wyman - 05/21/2016 2:25 PM PDTPatient no showed to his appointment with Dr. Corado on 04-30-16. Called patient to reschedule. No answer. No answering machine, qamar ble to leave a voicemail message for patient to call us back. documented in this encounter Plan of Treatment +--------+---------+ + + + | Date | Type | Specialty | Care Team | Description | +--------+---------+ + + + | 12/06/ | Office | Cardiology | Stephenie Paul, | | | 2019 | Visit | | MD Bob She[address] | | | | | | [place], | | | | | | [place] [address] | | | | | | [phone] | | | | | | | | +--------+---------+ + + + documented as of this encounter Visit Diagnoses Not on filedocumented in this encounter"
--- OUTSIDE RECORDS SUMMARY | ~2019-09-12 | XMS | Encounter Summary ---
Demographics + + + | Address | [address] | | | [place] [address] | + + + | Home Phone | | + + + | Preferred Language | Unknown | + + + | Marital Status | | + + + | Anabaptism Affiliation | Unknown | + + + | Race | Unknown | + + + | Ethnic Group | Unknown | + + + Author + + + | Author | [facility] | | | and [place] | + + + | Organization | [facility] | [...] | | | | | [place] [address] | | + + + + + | Valentín Saleh | ECON | [address] | | | | | [place] [address] | | + + + + + | Roberto Carlos Lennon | LEVI | Unknown | | + + + + + Care Team Providers + +------+ + | Care Plant Electrical Engineer Name | Role | Phone | [...] Description | +--------+--------+ + + + | 01/24/ | Refill | [facility] | Francois Pascal, | Medication Refill | | 2013 | | MEDICINE [facility] [place] | [address] | | | | | [address]VE [place], | [address] [place], | | | | | [place] [address] | [place] [address] | | | | | [phone] | [phone] | | | | | | | [...] | | | | | | [place] [address] | | | | | | [phone] | | | | | | | | +--------+---------+ + + + documented as of this encounter Visit Diagnoses Not on filedocumented in this encounter"
--- OUTSIDE RECORDS SUMMARY | ~2019-09-12 | XMS | Encounter Summary ---
Demographics + + + | Address | [address] | | | [place] [address] | + + + | Home Phone [...] + | Author | [facility] | | | and [place] | + + + | Organization | [facility] | | | and [...] | | | | | [place] [address] | | + + + + + | Valentín Saleh | ECON | [address] | | | | | [place] [address] | | + + + + + | Roberto Carlos Lennon | LEVI | [place] | | + + + + + Care Team Providers + +------+ + | Care Traffic Analyst Name | Role | Phone | + +------+ + PCP | Unavailable | + +------+ + Encounter Details +--------+ + + + + | Date | Type | Department | Care Team | Description | +--------+ + + + + | 11/25/ | Hospital | [facility] | | | | 2006 | Encounter | MED CTR XRAY [address] | | | | | | [place] | | | | | | [place] [address] | | | | | | [phone] | | | +--------+ + + + [...] | | | | | | [place] [address] | | | | | | [phone] | | | | | | | | +--------+---------+ + + + documented as of this encounter Visit Diagnoses Not on filedocumented in this encounter"
--- OUTSIDE RECORDS SUMMARY | ~2019-09-12 | XMS | Encounter Summary ---
Demographics + + + | Address | [address] | | | [place] [address] | + + + | Home Phone [...] | Author | [facility] | | | and [place] | + + + | Organization | [facility] [...] | | | | | [place] [address] | | + + + + + | Valentín Saleh | ECON | [address] | | | | | [place] [address] | | + + + + + | Roberto Carlos Lennon | LEVI | [place] | | + + + + + Care Team Providers + +------+ + | Care Brainer Name | Role | Phone | + +------+ + PCP | Unavailable | + +------+ + Encounter Details +--------+ + + + + | Date | Type | Department | Care Team | Description | +--------+ + + + + | 12/13/ | Hospital | [facility] | | | | 1994 | Encounter | MED CTR EMERGENCY | | | | | | CENTER [address] | | | | | | [place] | | | | | | [address] | | | | | | [phone] | | | +--------+ + + + [...] | | | | | | [place] [address] | | | | | | [phone] | | | | | | | | +--------+---------+ + + + documented as of this encounter Visit Diagnoses Not on filedocumented in this encounter"
--- OUTSIDE RECORDS SUMMARY | ~2019-09-12 | XMS | Encounter Summary ---
Demographics + + + | Address | [address] | | | [place] [address] | + + + | Home Phone [...] Author | [facility] | | | and [place] | + + + | Organization | [facility] | | [...] | | | | | [place] [address] | | + + + + + | Valentín Saleh | ECON | [address] | | | | | [place] [address] | | + + + + + | Roberto Carlos Garcia | LEVI | Unknown | | + + + + + Care Team Providers + +------+ + | Care Actuarial Technician Name | Role | Phone | + +------+ + | Vernon Yoder MD | PCP | | + +------+ + Reason for Visit + + + | Reason | Comments | + + + | New Patient | glossitis,painful | + + + Evaluate & Treat (Routine) +--------+ + + + + + | Status | Reason | Specialty | Diagnoses / | Referred By | Referred To | | | | | Procedures | Contact | Contact | +--------+ + + + + + | Closed | Specialty | Otolaryngolog | Diagnoses | Morasc[place]rianna, | Jason Peoples | | | Services | y | Glossitis | Vernon Tello MD | MD Jaden [address] | | | Required | | | [address] | | | | | | [address] | [address] | | | | | | [place], | | | | | | [place], [place] | [place] [address] | | | | | | [address] | Phone: | | | | | | Phone: | [phone] | | | | | | [phone] | Fax: | | | | | | Fax: | [phone] | | | | | | [phone] | | +--------+ + + + + + Encounter Details +--------+---------+ + + + | Date | Type | Department | Care Team | Description | +--------+---------+ + + + | 11/30/ | Office | [facility] | Jason Peoples MD | Gingival bleeding | | 2016 | Visit | OTOLARYNGOLOGY [address] | [address] | (Primary Dx) | | | | [address] | [address] [place] | | | | | [place] | [place] [address] | | | | | [address] | [phone] | | | | | [phone] | | | +--------+---------+ + + + [...] + + + | Blood Pressure | - | - | | + + + + + | Pulse | 68 | 12/01/2015 9:40 AM | | | | | PDT | | + + + + + | Temperature | - | - | | + + + + + | Respiratory Rate | 16 | 12/01/2015 9:40 AM | | | | | PDT | | + + + + + | Oxygen Saturation | 95% | 12/01/2015 9:40 AM | | | | | PDT | | + + + + + | Inhaled Oxygen | - | - | | | Concentration | | | | + + + + + | Weight | 74.4 kg (164 lb) | 12/01/2015 9:40 AM | | | | | PDT | | + + + + + | Height | 162.6 cm (5' 4") | 12/01/2015 9:40 AM | | | | | PDT | | + + + + + | Body Mass Index | 28.15 | 12/01/2015 9:40 AM | | | | | PDT | | + + + + + documented in this encounter Progress Notes Jason Peoples MD - 12/01/2015 10:38 AM PDT [facility] OTOLARYNGOLOGY [address] [facility] [address] OFFICE NOTE JASON PEOPLES MD Patient: ALYSON GARCIA Admitting: MR #: [id number] LOC: PT TYPE: Adm Date: 12/01/2015 : 1930 DATE OF VISIT: 12/01/2015 The patient has had problems with inflammation and irritation in her mouth, she indicates probably for 13 years. She was seen at [facility] and given an injection of cortisone, and her m outh seemed to do much better for a while. She used to have sores on her tongue. Current her only problem is sores on the inside of her lip up against her teeth. She has a histor y of a partial she uses on the lower jaw area. Her teeth, most of them, are absent along t he lateral edge on both sides, just the front teeth remain. The patient notes whenever she brushes her teeth it bleeds easily and is quite tender and sensitive. She comes in to hav e this evaluated. Not having any other problems at the current time. No difficulty with swallowing, no change in her vocal function. PHYSICAL EXAMINATION: GENERAL: Shows an alert 84-year-old female patient. She is communicating well. Her voic e quality is good. HEENT: Skin of the face, nose and ears all appear to be healthy. Parotid, submandibular g land areas were smooth. Facial movement is symmetrical, without any weakness noted. Ear c anals are open; they are clean. Drums are clear. There is no middle ear effusion or abnor mality noted. Nasal passages: No obstruction, no mass or lesion seen on either side. Fl oor of the mouth, buccal mucosa, hard palate appear healthy. She has a lot of inflammation of the gingiva on the teeth all across the front, some of the inflammation comes almost to the top of the teeth. No other lesions or tender areas were noted. No mass seen in the oropharynx. Posterior pharyngeal wall was smooth. Tongue and soft palate are smooth and m ove symmetrically. NECK: There is no mass or lymphadenopathy. Thyroid gland area was smooth. Trachea is mi dline. Good range of motion of the neck without any pain or discomfort noted. IMPRESSION: Gingivitis. PLAN: The patient will get into a systems integration engineer by the name of Dr. Mauricio Bello to see i f she can get this resolved. JASON PEOPLES MD Dictated by JASON PEOPLES MD 12/01/2015 10:38:16 Transcribed on 12/02/2015 11:07:00 by mai potts# [id number] Confirmation #: [id number] cc: VERNON YODER MD Jason de jesus MD - 12/01/2015 10:26 AM PDTSee dictation # [id number] signed by Jason Peoples MD at 12/01/2015 10:39 AM PDTdocumented in th is encounter Plan of Treatment +--------+---------+ + + + | Date | Type | Specialty | Care Team | Description | +--------+---------+ + + + | 12/06/ | Office | Cardiology | Stephenie Paul, | | | 2020 | Visit | | MD [address] | | | | | | [facility] [place], | | | | | | [place] [address] | | | | | | [phone] | | | | | | | | +--------+---------+ + + + + + +--------+ + + | Name | Type | Priori | Associated Diagnoses | Order Schedule | | | | ty | | | + + +--------+ + + | * DEEPTHI RIVERA | Outpatient | Routin | Glossitis | Ordered: 11/17/2015 | | Otolaryngology - AMB | Referral | e | | | | Referral | | | | | + + +--------+ + + documented as of this encounter Visit Diagnoses + + | Diagnosis | + + | Gingival bleeding - Primary Other specified periodontal diseases | + + documented in this encounter
--- OUTSIDE RECORDS SUMMARY | ~2019-09-12 | XMS | Encounter Summary ---
Demographics + + + | Address | [address] | | | [place] [address] | + + + | Home Phone | | + + + | Preferred Language | Unknown | + + + | Marital Status | | + + + | Nondenominational Affiliation | Unknown | + + + | Race | Unknown | + + + | Ethnic Group | Unknown | + + + Author + + + | Author | [facility] | | | and [place] | + + + | Organization | [facility] | | | and [...] | | | | | [place] [address] | | + + + + + | Valentín Saleh | ECON | [address] | | | | | [place] [address] | | + + + + + | Roberto Carlos Lennon | LEVI | Unknown | | + + + + + Care Team Providers + +------+ + | Care Academic Affairs Manager Name | Role | Phone | + +------+ + | Francois Pascal MD | PCP | | + +------+ + Reason for Visit +---------+--------+ + | Reason | Onset | Comments | | | Date | | +---------+--------+ + | Illness | 11/13/ | | | | 2014 | | +---------+--------+ + Encounter Details +--------+ + + + + | Date | Type | Department | Care Team | Description | +--------+ + + + + | 11/13/ | Telephone | [facility] | Francois Pascal, | Illness | | 2014 | | MEDICINE [address] | [address] | | | | | [address] [place], | [address] [place], | | | | | [place] [address] | [place] [address] | | | | | [phone] | [phone] | | | | | | | [...] Telephone Encounter - Airam Menjivar RN - 11/13/2014 3:[address]es she has been "real sick' and doesn't think that she will be able to [facility]. Transferred to imaging to reschedule. documented in this encounter Plan of Treatment +--------+---------+ + + + | Date | Type | Specialty | Care Team | Description | +--------+---------+ + + + | 12/06/ | Office | Cardiology | Stephenie Paul, | | | 2019 | Visit | | MD [address] | | | | | | [place], | | | | | | [place] [address] | | | | | | [phone] | | | | | | | | +--------+---------+ + + + documented as of this encounter Visit Diagnoses Not on filedocumented in this encounter
--- OUTSIDE RECORDS SUMMARY | ~2019-09-12 | XMS | Encounter Summary ---
Demographics + + + | Address | [address] | | | [place] [address] | + + + | Home Phone [...] + | Author | [facility] | | | and [place] | + + + | Organization | [facility] | | | and [place] | + + + | Address | Unknown | + + + | Phone | Unavailable | + + + Support + + + + + | Name | Relationship | Address | Phone | + + + + + | Sigrid Lennon | ECON | [address] | | | | | [place] [address] | | + + + + + | Valentín Saleh | ECON | [phone] | | | | | [place] [address] | | + + + + + | Roberto Carlos Lennon | LEVI | Unknown | | + + + + + Care Team Providers + +------+ + | Care Brick Wheeler Name | Role | Phone | + [...] Description | +--------+--------+ + + + | 01/11/ | Refill | [facility] [place] [facility] | Francois Pascal, | Medication Refill | | 2015 | | MEDICINE [facility] [address] | [address] | | | | | [address]VE [place], | [address] [place], | | | | | [place] [address] | [place] [address] | | | | | [phone] | [phone] | | | | | | | [...] | | | | | | [place] [address] | | | | | | [phone] | | | | | | | | +--------+---------+ + + + documented as of this encounter Visit Diagnoses Not on filedocumented in this encounter"
--- OUTSIDE RECORDS SUMMARY | ~2019-09-12 | XMS | Encounter Summary ---
Demographics + + + | Address | [address] | | | [place] [address] | + + + | Home Phone [...] Author | [facility] | | | and [place] | + + + | Organization | [facility] | | | [...] | | | | | [place] [address] | | + + + + + | Valentín Saleh | ECON | [address] | | | | | [place] [address] | | + + + + + | Roberto Carlos Lennon | LEVI | Unknown | | + + + + + Care Team Providers + +------+ + | Care Granulating Blender Name | Role | Phone | + +------+ + | No, Physician | PCP | Unavailable | + +------+ + Encounter Details +--------+ + + + + | Date | Type | Department | Care Team | Description | +--------+ + + + + | 10/05/ | Lab | [facility] | [place], | Chronic kidney | | 2018 | Requisition | MED CTR LABORATORY | [address] | disease, stage III | | | | [address] [place] | [address] | (moderate); | | | | [place] | [address] | Age-related | | | | [address] | [id number] | osteoporosis without | | | | [phone] | | current | | | | [...] | 2019 | Visit | | [address] [facility] | | | | | | 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
--- OUTSIDE RECORDS SUMMARY | ~2019-09-12 | XMS | Encounter Summary ---
Demographics + + + | Address | [address] | | | [place] [address] | + + + | Home Phone | | + + + | Preferred Language | Unknown | + + + | Marital Status | | + + + | Yarsani Affiliation | Unknown | + + + | Race | Unknown | + + + | Ethnic Group | Unknown | + + + Author + + + | Author | [facility] | | | and [place] | + + + | Organization | [facility] | | | [...] | | | | | [place] [address] | | + + + + + | Valentín Saleh | ECON | [address] | | | | | [place] [address] | | + + + + + | Roberto Carlos Lennon | LEVI | Unknown | | + + + + + Care Team Providers + +------+ + | Care Solar Energy System Installer Name | Role | Phone | [...] Description | +--------+--------+ + + + | 08/09/ | Refill | [facility] [place] | Stephenie Paul, | Medication Refill | | 2013 | | CARDIOLOGY [address] | MD [address] | | | | | [place], | [place], | | | | | [place] [address] | [place] [address] | | | | | [phone] | [phone] | | | | | | | [...] | | | | | | [place] [address] | | | | | | [phone] | | | | | | | | +--------+---------+ + + + documented as of this encounter Visit Diagnoses Not on filedocumented in this encounter"
--- OUTSIDE RECORDS SUMMARY | ~2019-09-12 | XMS | Encounter Summary ---
Demographics + + + | Address | [address] | | | [place] [address] | + + + | Home Phone | | + + + | Preferred Language | Unknown | + + + | Marital Status | | + + + | Latter-Day Affiliation | Unknown | + + + | Race | Unknown | + + + | Ethnic Group | Unknown | + + + Author + + + | Author | [facility] | | | and [place] | + + + | Organization | [facility] | | | and [...] | | | | | [place] [address] | | + + + + + | Valentín Saleh | ECON | [address] | | | | | [place] [address] | | + + + + + | Roberto Carlos Lennon | LEVI | Unknown | | + + + + + Care Team Providers + +------+ + | Care Angle Roll Operator Name | Role | Phone | + +------+ + | No, Physician | PCP | Unavailable | + +------+ + Encounter Details +--------+ + + + + | Date | Type | Department | Care Team | Description | +--------+ + + + + | 10/11/ | Lab | [facility] | [place], | Chronic kidney | | 2018 | Requisition | MED CTR LABORATORY | [address] | disease, stage III | | | | [address] [place] | [address] | (moderate); 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 | [address] | [place] | [phone] | | [facility] | | [address] | | | - LABORATORY | | [...]
--- OUTSIDE RECORDS SUMMARY | ~2019-09-12 | XMS | Encounter Summary ---
Demographics + + + | Address | [address] | | | [place] [address] | + + + | Home Phone [...] + | Author | [facility] | | | and [place] | + + + | Organization | [facility] | | | and [...] | | | | | [place] [address] | | + + + + + | Valentín Saleh | ECON | [address] | | | | | [place] [address] | | + + + + + | Roberto Carlos Lennon | LEVI | Unknown | | + + + + + Care Team Providers + +------+ + | Care Traffic Operations Manager Name | Role | Phone | + +------+ + | Francois Pascal MD | PCP | | + +------+ + Encounter Details +--------+ + + + + | Date | Type | Department | Care Team | Description | +--------+ + + + + | 03/22/ | Hospital | [facility] | Francois Pascal, | | | 2011 | Encounter | MED CTR LABORATORY | [address] | | | | | [address] [place] | [address] [place], | | | | | [place] | [place] [address] | | | | | [address] | [phone] | | | | | [phone] | | | +--------+ + + + [...] | | | | | | [facility], | | | | | | [place] [address] | | | | | | [phone] | | | | | | | | +--------+---------+ + + + documented as of this encounter Procedures + +--------+ + + + | Procedure Name | Priori | Date/Time | Associated Diagnosis | Comments | | | ty | | | | + +--------+ + + + | HEMOGLOBIN A1C | Routin | 03/22/2011 | | Results for this | | | e | 10:43 AM | | procedure are in the | | | | PST | | results section. | + +--------+ + + + | HEPATIC FUNCTION | Routin | 03/22/2011 | | Results for this | | PANEL | e | 10:43 AM | | procedure are in the | | | | PST | | results section. | + +--------+ + + + documented in this encounter Results Hepatic Function Panel (03/22/2011 10:43 AM PST) + + + + + + | Component | Value | Ref Range | Performed | Pathologist | | | | | At | Signature | + + + + + + | Alkaline | 45 | 40 - 110 IU/L | [facility] [...] ALT | 20 | 6 - 45 IU/L | [facility] [...] + + + + | Bilirubin | 0.1 | 0.0 - 0.2 mg/dL | [facility] | | | Direct | | | [facility] | | | | | | [facility] | | | | | | C[facility] - | | | | | | LABORATORY | | + + + + + + | BILIRUBIN | 0.8Comment: DIRECT BILI | 0.00 - 1.00 | [facility] | | | INDIRECT | = CONJUGATED | mg/dL | [facility] | | | | INDIRECT BILI = | | MEDICAL | | | | UNCONJUGATED | | CENTER - | | | | | | LABORATORY | | + + + + + + | Total | 6.7 | 6.0 - 7.8 gm/dL | [facility] [...] + | [facility] | [address] | [place], [place] | [phone] | | [facility] | | [address] | | | - LABORATORY | | | | + + + + + | [facility] | [address] | [place], [place] | | | [facility] | | [address], [facility] | | | - LABORATORY | | | | + + + + + Hemoglobin A1C (03/22/2011 10:43 AM PST) + + + + + + | Component | Value | Ref Range | Performed | Pathologist | | | | | At | Signature | + + + + + + | Hemoglobin | 7.1 (H)Comment: | 4.3 - 5.8 % | [...] ST. | [address] | [place] | [phone] | | [facility] | | [address] | | | - LABORATORY | | | | + + + + + | [facility] | [address] | [place] | | | [facility] | | [address] [place] [address] | | | - LABORATORY | | | | + + + + + documented in this encounter Visit Diagnoses Not on filedocumented in this encounter"
--- OUTSIDE RECORDS SUMMARY | ~2019-09-12 | XMS | Encounter Summary ---
Demographics + + + | Address | [address] | | | [place] [address] | + + + | Home Phone [...] Author | [facility] | | | and [place] | + + + | Organization | [facility] | | | and [...] | | | | | [place] [address] | | + + + + + | Valentín Saleh | ECON | [address] | | | | | [place] [address] | | + + + + + | Roberto Carlos Lennon | LEVI | [place] | | + + + + + Care Team Providers + +------+ + | Care Seamless Tube Drawer Name | Role | Phone | + +------+ + PCP | Unavailable | + +------+ + Encounter Details +--------+ + + + + | Date | Type | Department | Care Team | Description | +--------+ + + + + | 06/24/ | Hospital | [facility] | Francois Pascal, | | | 2009 | Encounter | MED CTR LABORATORY | [address] | | | | | [address] [place] | [address] [place], | | | | | [place] | [place] [address] | | | | | [address] | [phone] | | | | | [phone] | | | +--------+ + + + [...] | | | | | | [place] [address] | | | | | | [phone] | | | | | | | | +--------+---------+ + + + documented as of this encounter Visit Diagnoses Not on filedocumented in this encounter"
--- OUTSIDE RECORDS SUMMARY | ~2019-09-12 | XMS | Encounter Summary ---
Demographics + + + | Address | [address] | | | [place] [address] | + + + | Home Phone [...] | Author | [facility] | | | and [place] | + + + | Organization | [facility] | | | [...] | | | | | [place] [address] | | + + + + + | Valentín Saleh | ECON | [address] | | | | | [place] [address] | | + + + + + | Roberto Carlos Lennon | LEVI | Unknown | | + + + + + Care Team Providers + +------+ + | Care Surgical Oncologist Name | Role | Phone | + +------+ + | Francois Pascal MD | PCP | | + +------+ + Reason for Visit + + + | Reason | Comments | + + + | Therapy Discharge | | + + + Evaluate & Treat (Routine) +--------+--------+ + + + + | Status | Reason | Specialty | Diagnoses / | Referred By | Referred To | | | | | Procedures | Contact | Contact | +--------+--------+ + + + + | Closed | | Physical | Diagnoses | Naida, | Quinn, | | | | Therapy [...] | | Gait | [place] | [address] Phone: | | | | | instability | [address] | [phone] | | | | | Procedures | Phone: | Fax: | | | | | [facility] | [phone] | [phone] | | | | | TREATMENT 45 | Fax: | | | | | | | [phone] | | +--------+--------+ + + + + Encounter Details +--------+---------+ + + + | Date | Type | Department | Care Team | Description | +--------+---------+ + + + | 03/19/ | Office | [facility] | Francois Pascal, | Posture imbalance | | 2016 | Visit | MED CTR THERAPY PT | [address] | (Primary Dx); | | | | OP [address] | [address] [place], | Impaired functional | | | | [place], [place] | [place] [address] | mobility, balance, | | | | [address] | [phone] | gait, and endurance; | | | | [phone] | | Left ankle pain | | | | | Kely Quinn, PT | | | | | | [address] | | | | | | [place] | | | | | | [address] | | | | | | | [...] encounter Progress Notes Kely Green, PT - 03/19/2015 11:35 AM PSTFormatting of this note might be different from t sridevi original. [facility] CTR THERAPY PT OP [address] [place] [address] Physical Therapy Discharge Note Date: 03/19/2015 Patient Information Patient Name: Alyson Lennon Date of : 1930 Age: 84 y.o. Encounter Diagnoses Code Name Primary? R29.3 Posture imbalance Yes Z74.09 Impaired functional mobility, balance, gait, and endurance M25.572 Left ankle pain Date of Onset: 10/24/2014 Referring Provider: Francois Pascal MD Rehab Precautions Office Visit from 12/24/2014 in [facility] CTR THERAPY PT OP Rehab Precautions Precautions Comments fall risk Pain Assessment: Pain Scale Used: NUMERIC Pain Rating Pre Assessment: 3 Location: left ankle Discharge Note: SUBJECTIVE: Alyson Lennon has completed 17 therapy visits for treatment of persistent and progressive left ankle pain and balance/gait. Patient reports improved balance, strength an d left foot/ankle ROM and decreased pain and states that she is independent with her HEP. OBJECTIVE: Functional Movements: Initial Assessment Discharge Sit<>Stand: Dysfunctional, heavy use of UE, leans right slight lean to right Sit<>Supine: dysfunctional normal Double Leg Squat: Dysfunctional, quad dominant/medial collapse Fair, cont. To have slight m edial collapse Single Leg Calf Raise: L= unable R= unable NT Single Leg Balance: L= unable R= unable NT Initial Assessment Initial Assessment Discharge Discharge Left Right Left Right Cervical ROM WFL WFL WFL WFL Sensation: intact intact intact intact Neurovascular: normal normal normal Cerebellar Function /Coordination: Left Right Left Right Finger to nose intact intact intact intact Heel to meeks intact intact intact intact Ankle ROM: Left Right Left Right Dorsi Flexion: 0 deg 0-15 0-15 deg 0-15 deg Plantar Flexion: 0-10 0-35 deg 0-10 0-35 Inversion: 0-10 0-20 0-10 0-20 Eversion: 0-5 0-10 0-5 0-10 Strength: Initial Assessment Initial Assessment Discharge Discharge Left Right Left Right Upper Extremity 4/5 4+/5 5 5 Iliopsoas (L1,L2): 4/5 4+/5 5 5 Quadriceps (L3): 4/5 4+/5 5 5 Ankle DF (L4): 4/5 4+/5 5 5 Great Toe Ext (L5): 4/5 4+/5 5 5 Glute Med (L5): 4-/5 4/5 4+ 4+ Ankle PF (S1): 4/5 4+/5 5 5 Ankle Eversion (S1): 4/5 4/5 5 5 Hamstrings (S2): 4/5 4/5 5 5 Lumbo-Pelvic Stabilizers: impaired fair Paraspinals: impaired fair Outcome Measure: Initial Assessment Progress Note / Discharge Dynamic Gait Index 8/ (<19= predictive of falls in elderly) 17/ (<19= predictive of fal ls in elderly) Modified-Clinical Test of sensory interaction in balance (M-CTSIB) Condition 1(eyes open/fi rm surface):30 seconds Condition 2(eyes closed/firm surface): 30 seconds, mild trunk sway Condition 3 (eyes open/foam surface): 30 seconds, mild trunk sway Condition 4(eyes closed/foam surface):3 seconds Condition 1(eyes open/firm surface):30 seco nds Condition 2(eyes closed/firm surface): 30 seconds, mild trunk sway Condition 3 (eyes open/foam surface): 30 seconds Condition 4(eyes closed/foam surface):25 seconds Assessment Alyson Lennon has completed therapy for treatment of persistent and progressive left ankl e pain and balance/gait. Most treatment goals have been met. Patient continues to have impai rments with left foot pain affecting her functional ability to tole rate standing >20 min without increased left foot pain. With this patients continued focus on her HEP this/these impairments should continue to improve. Goals: Outcome Specific Scored Goals Patient's Primary Functional Goal 1: Improve DGI score from 8 to >16/24 to reduce risk o f falls and increase functional mobility allowing for improved ability to complete ADL activ ities. 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 Patient's Primary Functional Goal 3: Increase ankle ROM to full allowing normal heel toe pa ttern with gait and normal navigation of stairs/curb with reciprocal gait pattern and least restrictive assistive device. Primary Functional Goal 3 Status Comment: MET OP PT Goals Goal 1: Patient will be Independent in a home exercise program to address symptoms of weakn ess/imbalance to decrease fall risk and improve ability to perform ADL's. Goal 1 Status: MET PT G-Codes Functional Assessment Tool Used: DGI Score: Functional Limitation: Mobility: Walking and moving around Mobility: Walking and Moving Around Goal Status (G8979): At least 20 percent but less than 40 percent impaired, limited or restricted Mobility: Walking and Moving Around Discharge Status (G8980): At least 20 percent but less than 40 percent impaired, limited or restricted Plan Date of Onset: 10/24/2014 Start of Care Date: 12/24/2014 Requested # of Visits: 24 visits 2x/week for 12 weeks Certification From: 02/13/2015 Certification To: 05/08/2015 Treatment Plan/Interventions 09045 - PT Evaluation 10992 - PT Re-Evaluation 08596 - Therapeutic Exercise 07704 - Neuromu scular Reeducation 86772 - Gait Training 10358 - Therapeutic Activities 45851 - [place] 56613 - Self Care/Home Management Patient and/or family has indicated understanding of treatment needs and actively participa rachel in the creation of this plan for care. Today's Treatment Start Time: 1130 Stop time: 1200 Duration: 30 minutes Timed Treatment Codes: 30 minutes # of PT Visits: 17 Objective: Reviewed HEP Next Visit: Pt is DC'd from skilled therapy at this time. 05/08 goals met Electronically signed by: Kely Green, PT, 03/19/2015 14:13 Patient Name: Alyson Lennon/: 1930/ documented in [...] | | | | | | [place] [address] | | | | | | [phone] | | | | | | | [...]
--- OUTSIDE RECORDS SUMMARY | ~2019-09-12 | XMS | Encounter Summary ---
Demographics + + + | Address | [address] | | | [place] [address] | + + + | Home Phone [...] | Author | [facility] | | | and [place] | + + + | Organization | [facility] | [...] | | | | | [place] [address] | | + + + + + | Valentín Saleh | ECON | [address] | | | | | [place] [address] | | + + + + + | Roberto Carlos Lennon | LEVI | Unknown | | + + + + + Care Team Providers + +------+ + | Care Airline Captain Name | Role | Phone | + [...] | Neurology | Diagnoses | Morasch, | [place], | | | Services | | Rapidly | Francois Tello MD | Roberto Carlos Mckeon | | | Required | | progressive | [address] | | | | | dementia | [address] | | | | | ([facility]) | [place] | [address] | | | | | | [place] | [place] | | | | | | [address] | [address] Phone: | | | | | | Phone: | [phone] | | | | | | [phone] | Fax: | | | | | | Fax: | [phone] | | | | | | [phone] | | +--------+ + + + + + Encounter Details +--------+---------+ + + + | Date | Type | Department | Care Team | Description | +--------+---------+ + + + | 08/19/ | Office | [facility] | Francois Pascal, | Rapidly progressive | | 2017 | Visit | MEDICINE [address] | [address] | dementia (Primary | | | | [address]VE [place], | [address] [place], | Dx); Confusion state | | | | [place] [address] | [place] [address] | | | | | [phone] | [phone] | | | | | | | [...] Progress Notes Francois Pascal MD - 08/19/2016 11:15 AM PDTFormatting of [...] | 12/06/ | Office | Cardiology | tSephenie Paul, | | | 2019 | Visit | | [address] | | | | | | [place], | | | | | | [place] [address] | | | | | | [phone] | | | | | | | | +--------+---------+ + + + + + +--------+ + + | Name | Type | Priori | Associated Diagnoses | Order Schedule | | | | ty | | | + + +--------+ + + | * PMElisha RIVERA | Outpatient | Routin | Rapidly | [...]
--- OUTSIDE RECORDS SUMMARY | ~2019-09-12 | XMS | Encounter Summary ---
Demographics + + + | Address | [address] | | | [place] [address] | + + + | Home Phone | | + + + | Preferred Language | Unknown | + + + | Marital Status | | + + + | Cheondoism Affiliation | Unknown | + + + | Race | Unknown | + + + | Ethnic Group | Unknown | + + + Author + + + | Author | [facility] | | | and [place] | + + + | Organization | [facility] | | | and [place] | + + + | Address | Unknown | + + + | Phone | Unavailable | + + + Support + + + + + | Name | Relationship | Address | Phone | + + + + + | Sigrid Lennon | ECON | [address] | | | | | [place] [address] | | + + + + + | Valentín Saleh | ECON | [address] | | | | | [place] [address] | | + + + + + | Roberto Carlos Lennon | LEVI | Unknown | | + + + + + Care Team Providers + +------+ + | Care Security Officer Name | Role | Phone | + +------+ + | Francois Pascal MD | PCP | | + +------+ + Reason for Visit + +--------+ + | Reason | Onset | Comments | | | Date | | + +--------+ + | Medication Prior | 03/03/ | Needs paperwork faxed back to office. | | Authorization | 2014 | | + +--------+ + Encounter Details +--------+ + + + + | Date | Type | Department | Care Team | Description | +--------+ + + + + | 03/03/ | Telephone | [facility] | Francois Pascal, | Medication Prior | | 2014 | | MEDICINE [facility] [address] | [address] | Authorization (Needs | | | | [address] [place], | [address] [place], | paperwork faxed | | | | [place] [address] | [place] [address] | back to office.) | | | | [phone] | [phone] | | | | | | | [...] this encounter Miscellaneous Notes Telephone Encounter - Ameena Coleman RN - 03/18/2015 2:44 PM PSTReceived Methotrexate a pproval notification Valid dates March-March 18, 2016 [employer] notified elephone Encounter - Kacy Boyd CMA - 03/17/2015 10:33 AM PSTReceived and filled prior authorization form. Ready to be faxed to [email or web address]. elephone Encounter - Kacy Boyd CMA - 03/06/2015 4:43 PM PSTPlaced call to [employer] and they will fax form to office. elephone Encounter - Janett Garcia - 03/03/2015 12:58 PM PST Contact/Caller: [email or web address] Customer Service/ Kina Contact Number: [phone] Provider/Nurse: Dr. Pascal/ Mildred Hamilton Bernie Reason for Call: Prior Authorization Paperwork for Methotrexate Last Appointment: 01-09-2015 Next Appointment: 04-14-2015 Kina from [employer] called to advise that they has sent over Prior Autho rization request for methotrexate. Claim has been approved, but was approved in error. Still needs to have the Prior Authorization faxed back. documented in this encounter Plan of [...] | | | | | | [place] [address] | | | | | | [phone] | | | | | | | | +--------+---------+ + + + documented as of this encounter Visit Diagnoses Not on filedocumented in this encounter"
--- OUTSIDE RECORDS SUMMARY | ~2019-09-12 | XMS | Encounter Summary ---
Demographics + + + | Address | [address] | | | [place] [address] | + + + | Home Phone | | + + + | Preferred Language | Unknown | + + + | Marital Status | | + + + | Judaism Affiliation | Unknown | + + + | Race | Unknown | + + + | Ethnic Group | Unknown | + + + Author + + + | Author | [facility] | | | and [place] | + + + | Organization | [facility] | [...] | | | | | [place] [address] | | + + + + + | Valentín Saleh | ECON | [address] | | | | | [place] [address] | | + + + + + | Roberto Carlos Lennon | LEVI | [place] | | + + + + + Care Team Providers + +------+ + | Care Head Start Teacher Name | Role | Phone | + +------+ + PCP | Unavailable | + +------+ + Encounter Details +--------+ + + + + | Date | Type | Department | Care Team | Description | +--------+ + + + + | 03/23/ | Hospital | [facility] | David Urban MD | | | 2002 | Encounter | MED CTR GENERIC OP | [address], [place] | | | | | CONV DEPT [address] [place], [place] | | | | | [address] [place], | [address] | | | | | [place] [address] | | | | | | [phone] | | | +--------+ + + + [...] | | | | | | [place] [address] | | | | | | [phone] | | | | | | | | +--------+---------+ + + + documented as of this encounter Visit Diagnoses Not on filedocumented in this encounter"
--- OUTSIDE RECORDS SUMMARY | ~2019-09-12 | XMS | Encounter Summary ---
Demographics + + + | Address | [address] | | | [place] [address] | + + + | Home Phone [...] | Author | [facility] | | | and [place] | + + + | Organization | [facility] | | [...] | | | | | [place] [address] | | + + + + + | Valentín Saleh | ECON | [address] | | | | | [place] [address] | | + + + + + | Roberto Carlos Lennon | LEVI | Unknown | | + + + + + Care Team Providers + +------+ + | Care Wallpaper Embosser Helper Name | Role | Phone | + +------+ + | Francois Pascal MD | PCP | | + +------+ + Reason for Visit + + + | Reason | Comments | + + + | Follow-up | | + + + Encounter Details +--------+---------+ + + + | Date | Type | Department | Care Team | Description | +--------+---------+ + + + | 10/02/ | Office | [facility] | Francois Pascal, | CHRONIC KIDNEY | | 2012 | Visit | MEDICINE [place] | [address] | DISEASE STAGE III | | | | [address] | [address] [place], | (MODERATE) (Primary | | | | [place], [place] | [place] [address] | Dx); DM (diabetes | | | | [address] | [phone] | mellitus) (HCC); | | | | [phone] | | Hyperlipidemia; | | | | | | HYPERTENSION NEC; | | | | | | OSTEOARTHRITIS, [...] + + + | Blood Pressure | 138/64 | 10/02/2012 9:40 AM | | | | | PDT | | + + + + + | Pulse | 66 | 10/02/2012 9:40 AM | | | | | PDT | | + + + + + | Temperature | 35.9 C (96.6 F) | 10/02/2012 9:40 AM | | | | | PDT | | + + + + + | Respiratory Rate | 20 | 10/02/2012 9:40 AM | | | | | PDT | | + + + + + | Oxygen Saturation | 94% | 10/02/2012 9:40 AM | | | | | PDT | | + + + + + | Inhaled Oxygen | - | - | | | Concentration | | | | + + + + + | Weight | 77.1 kg (170 lb) | 10/02/2012 9:40 AM | | | | | PDT | | + + + + + | Height | 158.8 cm (5' 2.5") | 10/02/2012 9:40 AM | | | | | PDT | | + + + + + | Body Mass Index | 30.6 | 10/02/2012 9:40 AM | | | | | PDT | | + + + + + documented in this encounter Progress Notes Francois Pascal MD - 10/02/2012 9:54 AM PDTFormatting of this note might be different f rom the original. Subjective: Patient ID: Alyson Lennon is a 81 y.o. female. HPI Left leg arthritis still some intermittent soreness, minimally better with her brace but s he does not wear it all of the time. She is not taking anything for the ankle. She does not take anything for this except the occasional tylenol. DM2 she is on lantus and novolog, and Januvia (she understands the risk with this). She notices that her glucoses are high occasionally. Rarely as high as 250 prior to a meal. In the morning is runs in the 90-120. She is compliant with her medications, she denies polyu melonie, polydipsia or polyphagia, She admits to having the right diet. lantus 105 u qhs, no volog 15-19 in am, 20-27 prior to lunch and 30-34 prior to dinner. She declines further tary consult. She tries to watch her diet "with every bit she takes" CKD, She urinates normally. There is no blood in her urine, She feels as though she drink s plenty of fluids. She follows with Kemar Mcclelland in Nephrology. Gout, takes her allopurinol daily two times daily, She takes colchicine on occasion. She has a bout every once in a while, right knee and left ankle. This is unchanged from previou s. HTN There is no chest pain SOB [...] VSD Father 50 Pneumonia Family Hx of [place]'s chorea Sister and 2 brothers: CAD, Airam's Disease to [place] - with 2 Healthy Children No kidney disease in family. Social History: Reviewed history from 08/11/2011 and no changes required: Born in [facility] for [facility] years. and Remarried 2 [...] no difficulty urinating. No Bloody urine Musculoskeletal: Negor myalgias, no back pain, no joint swelling and No arth ralgias. some joint pain Skin: Neg for color [...] /s M Abd S,NT,ND,BS+ Ext, no CCor trace edema Neuro Non-focal Lymph, no cervical, axillary, inguinal adenopathy Musculoskeletal, no gross deformity or loss or range of motion Skin, no gross lesions Assessment: 1. CHRONIC KIDNEY DISEASE STAGE III (MODERATE) 2. DM (diabetes mellitus) 3. Hyperlipidemia 4. HYPERTENSION NEC 5. OSTEOARTHRITIS, ANKLE, LEFT Plan: She looks and feels fine except her left ankle which continues to bother her. 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 She could consider water aerobi cs. documented in this encounter Plan of Treatment +--------+---------+ + + + | Date | Type | Specialty | Care Team | Description | +--------+---------+ + + + | 12/06/ | Office | Cardiology | Stephenie Paul, | | | 2019 | Visit | | MD Bob Shee[address] | | | | | | [place], | | | | | | [place] [address] | | | | | | [phone] | | | | | | | | +--------+---------+ + + + documented as of this encounter Visit Diagnoses + + | Diagnosis | + + | CHRONIC KIDNEY DISEASE STAGE III (MODERATE) - Primary Chronic kidney disease, Stage | | III (moderate) | + + | DM (diabetes mellitus) (HCC) Type II or unspecified type diabetes mellitus without | | mention of complication, not stated as uncontrolled | + + | Hyperlipidemia Other and unspecified hyperlipidemia | + + | HYPERTENSION NEC Complications affecting other specified body systems, hypertension | + + | OSTEOARTHRITIS, ANKLE, LEFT Osteoarthrosis, unspecified whether generalized or | | localized, ankle and foot | + + documented in this encounter
--- OUTSIDE RECORDS SUMMARY | ~2019-09-12 | XMS | Encounter Summary ---
Demographics + + + | Address | [address] | | | [place] [address] | + + + | Home Phone [...] Author | [facility] | | | and [place] | + + + | Organization | [facility] | | | and [place] | + + + | Address | Unknown | + + + | Phone | Unavailable | + + + Support + + + + + | Name | Relationship | Address | Phone | + + + + + | Sigrid Lennon | ECON | [address] | | | | | [place] [address] | | + + + + + | Valentín Saleh | ECON | [address] | | | | | [place] [address] | | + + + + + | Roberto Carlos Lennon | LEVI | Unknown | | + + + + + Care Team Providers + +------+ + | Care Receiving And Processing Supervisor Name | Role | Phone | + +------+ + | Francois Pascal MD | PCP | | + +------+ + Reason for Visit +---------+--------+ + | Reason | Onset | Comments | | | Date | | +---------+--------+ + | Results | 03/06/ | | | | 2012 | | +---------+--------+ + Encounter Details +--------+ + + + + | Date | Type | Department | Care Team | Description | +--------+ + + + + | 03/06/ | Telephone | [facility] | Francois Pascal, | Results | | 2012 | | MEDICINE [address] | [address] | | | | | [address] [place], | [address] [place], | | | | | [place] [address] | [place] [address] | | | | | [phone] | [phone] | | | | | | | [...] Telephone Encounter - Airam Menjivar RN - 03/06/2013 2:02 PM PSTPatient phoned and wa s given appointment per Dr Pascal.Electronically signed by Airam Menjivar RN at 013 2:03 PM PSTTelephone Encounter - Caprice Rodriguez [employer] - 03/06/2013 9:11 AM PS TLeft a message to patient to call us back in regards to abnormal labs. Dr pascal would lik e to see her within a month to discuss abnormal labs documented in this encounter Plan of Treatment +--------+---------+ + + + | Date | Type | Specialty | Care Team | Description | +--------+---------+ + + + | 12/06/ | Office | Cardiology | Stephenie Paul, | | | 2019 | Visit | | MD Bob Sheehan | | | | | | [place], | | | | | | [place] [address] | | | | | | [phone] | | | | | | | | +--------+---------+ + + + documented as of this encounter Visit Diagnoses Not on filedocumented in this encounter"
--- OUTSIDE RECORDS SUMMARY | ~2019-09-12 | XMS | Encounter Summary ---
Demographics + + + | Address | [address] | | | [place] [address] | + + + | Home Phone [...] | Author | [facility] | | | and [place] | + + + | Organization | [facility] | | | and [place] | + + + | Address | Unknown | + + + | Phone | Unavailable | + + + Support + + + + + | Name | Relationship | Address | Phone | + + + + + | Sigrid Lennon | ECON | [address] | | | | | [place] [address] | | + + + + + | Valentín Saleh | ECON | [address] | | | | | [place] [address] | | + + + + + | Roberto Carlos Lennon | LEVI | Unknown | | + + + + + Care Team Providers + +------+ + | Care Data Collector Name | Role | Phone | + [...] | | 2015 | | MEDICINE [facility] [place] | [address] | | | | | [address] [place], | [address] [place], | | | | | [place] [address] | [place] [address] | | | | | [phone] | [phone] | | | | | | | [...] | | | | | | [place] | | | | | | [phone] | | | | | | | | +--------+---------+ + + + documented as of this encounter Visit Diagnoses Not on filedocumented in this encounter"
--- OUTSIDE RECORDS SUMMARY | ~2019-09-12 | XMS | Encounter Summary ---
Demographics + + + | Address | [address] | | | [place] [address] | + + + | Home Phone [...] Author | [facility] | | | and Clarkeana | + + + | Organization | [facility] | | | and [...] | | | | | [place] [address] | | + + + + + | Valentín Saleh | ECON | [address] | | | | | [place] [address] | | + + + + + | Roberto Carlos Lennon | LEVI | Unknown | | + + + + + Care Team Providers + +------+ + | Care Social Science Professor Name | Role | Phone | [...] Description | +--------+--------+ + + + | 04/06/ | Refill | [facility] | Francois Pascal, | Medication Refill | | 2012 | | MEDICINE [place] | [address] | | | | | [address] | [address] [place], | | | | | [place] | [place] [address] | | | | | [address] | [phone] | | | | | [phone] | | | +--------+--------+ + + + [...] | | | | | | [place] [address] | | | | | | [phone] | | | | | | | | +--------+---------+ + + + documented as of this encounter Visit Diagnoses Not on filedocumented in this encounter"
--- OUTSIDE RECORDS SUMMARY | ~2019-09-12 | XMS | Encounter Summary ---
Demographics + + + | Address | [address] | | | [place] [address] | + + + | Home Phone | | + + + | Preferred Language | Unknown | + + + | Marital Status | | + + + | Quaker Affiliation | Unknown | + + + | Race | Unknown | + + + | Ethnic Group | Unknown | + + + Author + + + | Author | [facility] | | | and Clarkeana | + + + | Organization | [facility] | [...] | | | | | [place] [address] | | + + + + + | Valentín Saleh | ECON | [address] | | | | | [place] [address] | | + + + + + | Roberto Carlos Lennon | LEVI | Unknown | | + + + + + Care Team Providers + +------+ + | Care Fund Accounting Manager Name | Role | Phone | + +------+ + | Francois Pascal MD | PCP | | + +------+ + Reason for Visit + + + | Reason | Comments | + + + | Chronic Kidney | stage three | | Disease | | + + [...] | kidney | [address] | Kemar R, | | | | | disease, | [address] | ASSOCIATE LOAN OFFICER [address] | | | | | stage III | [place] | [address] | | | | | (moderate) | [place], [place] | [address] | | | | | (HCC) | [address] | [place], | | | | | Unspecified | Phone: | [place] [address] | | | | | hypertensive | [phone] | Phone: | | | | | kidney | Fax: | [phone] | | | | | disease with | [phone] | Fax: | | | | | chronic | | [phone] | | | | | kidney | [...] | | | | | | | [place] OFFICE | | | | | | | OUTPATIENT | | | | | | | VISIT 25 | | | | | | | MINUTES | | | +--------+--------+ + + + + Encounter Details +--------+---------+ + + + | Date | Type | Department | Care Team | Description | +--------+---------+ + + + | 06/06/ | Office | [facility] [place] | [place], | CHRONIC KIDNEY | | 2015 | Visit | NEPHROLOGY [address] | [address] | DISEASE STAGE III | | | | [address] | [address] | (MODERATE) (Primary | | | | [place] | [address] [place] | Dx); DM type 2, | | | | [address] | [address] | uncontrolled, with | | | | [phone] | | renal complications | | | | | | (HCC); HTN CKD UNS | | | | | | W/CKD STAGE I THRU | | | | | | STAGE IV/UNS; | | | | | | Vitamin [...] + + + | Blood Pressure | 126/60 | 06/06/2014 10:31 AM | | | | | PDT | | + + + + + | Pulse | 60 | 06/06/2014 10:31 AM | | | | | PDT [...] + + + + | Weight | 74.8 kg (164 lb 14.4 | 06/06/2014 10:31 AM | | | | oz) | PDT | | + + + + + | Height | 162.6 cm (5' 4") | 06/06/2014 10:31 AM | | | | | PDT | | + + + + + | Body Mass Index | 28.31 | 06/06/2014 10:31 AM | | | | | PDT | | + + + + + documented in this encounter Patient Instructions Patient Instructions Kemar Herndon ARNP - 06/06/2014 10:57 AM Pinky function is stable. Please avoid taking NSAIDs. These are some commonly used NSAIDs: ibuprofen (Motrin,Advil), naproxen (Aleve, Naprosyn), celecoxib (Celebrex), indomethacin (Indocin), meloxicam (Mobic). Blood pressure is well controlled today. Please monitor blood pressure at home. Goal 120-14 0/60-80. Notify office if not within goal. Diabetic goals: Hgb A1c <7%. Your Hgb A1c has been improving, now 7.6%. documented in this encounter Progress Notes Kemar Herndon Katie, ASSOCIATE LOAN OFFICER - 06/06/2014 10:32 AM PDTFormatting of this note might be diff erent from the original. Nephrology Follow Up Visit Date: 06/06/2014 PCP: Dr. Francois Pascal HPI: Alyson Lennon is a 83 y.o. female following up for CKD. 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 Corado, hyperlipidemia, gout, glossitis, and vitamin D deficiency. S sissy creatinine has fluctuated from 1.1-1.4 mg/dl in the past 3 years. Alyson is here for 6 month follow up. She reports that home blood pressure has been well contr olled and she has been feeling well overall. No concerns or complaints today except for ankl e pain related to an old injury. Patient Active Problem List Diagnosis Date Noted [...] W/CKD STAGE I THRU STAGE IV/UNS Unknown DM type 2, uncontrolled, with renal complications Unknown CAD Unknown CONGESTIVE HEART FAILURE Unknown DEEP VENOUS THROMBOPHLEBITIS Unknown ARTHRITIS, CHRONIC 09/28/2011 Unknown AMI - ANTEROSEPTAL 199408/09/2011 Unknown VSD - 199408/09/2011 Unknown CLOSURE VENTRICULAR SEPTAL DEFECT - 199408/09/2011 Unknown FATIGUE 05/24/2011 Unknown VIRAL URI 05/24/2011 Unknown HYPERTRIGLYCERIDEMIA 12/24/2010 Unknown RENAL INSUFFICIENCY 01/21/2010 Unknown Past Medical History Diagnosis Date Hyperlipemia Vitamin D deficiency Gout Glossitis Hypertension 1979's DM type 2 (diabetes mellitus, type 2) ([facility]) 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 Myocardial infarction (HCC) (1994&1996) CAR with Hx of Myocardial infarction Other abnormal clinical finding Verebral Compression Fractures Glossitis CAD (coronary artery disease) CHF (congestive heart failure) ([facility]) Arthritis Old [place] (myocardial infarction) ([facility]) Carotid stenosis H/O ventricular septal defect repair DVT (deep vein thrombosis) in Chronic kidney disease, stage III (moderate) ([facility]) Vitamin D deficiency Gout Osteoporosis OSTEOARTHRITIS, ANKLE, LEFT 01/21/2010 Squamous carcinoma 12/05/2012 Past Surgical History Procedure Laterality Date Coronary artery bypass graft 1996 Grafting for Coronary Artery Bypass x 3 vessels and VSD Patch Cholecystectomy 1986 Left brest bi 1974 Previous inferior vena cava filter Ou cateract surgery 2006 Hiatal hernia repair 1984 Orif left ankle unstable trimalleolar fracture dislocation 03/24/2009 Breast surgery 1974 BIOPSY BRESAT, LEFT Outpatient Prescriptions Marked as Taking for the 06/06/14 encounter (Office Visit) with LAURO Hauser Medication [...] BY MOUTH EVERY DAY 135 tablet 1 No Facility-Administered Medications for the 06/06/14 encounter (Office Visit) with LAURO Reaves. Allergies Allergen Reactions Codeine Sulfate Nausea And Vomiting Darvon Nausea Only Estrogens Patient can't remember ROS: Reports chronic left ankle edema, at baseline. Denies anorexia, fatigue, chest pain, d yspnea, orthopnea, nausea, vomiting, dysuria, hematuria, urinary frequency. Physical Exam: Filed Vitals: 06/06/14 1031 BP: 126/60 Pulse: 60 Height: 1.626 m (5' 4") Weight: 74.798 kg (164 lb 14.4 oz) Body mass index is 28.29 kg/(m^2). Constitutional: Pleasant, well-nourished female in no [...] are normal. No distension or tenderness. Musculoskeletal: Trace peripheral edema. Neurological: Alert. Skin: Skin is warm. No rash. Psychiatric: Normal mood and affect. Labs reviewed with patient: Office Visit on 06/06/2014 Component Date Value Range Status POC COLOR UA 06/06/2014 Yellow Yellow, Light Yellow Final POC CLARITY UA 06/06/2014 Clear Final POC GLUCOSE UA 06/06/2014 Negative Negative Final POC BILIRUBIN UA 06/06/2014 Negative Negative Final POC KETONES UA 06/06/2014 Negative Negative, 100 mg/dL Final POC SPECIFIC GRAVITY UA 06/06/2014 1.005 1.001 - 1.030 Final POC BLOOD UA 06/06/2014 Negative Negative Final POC PH UA 06/06/2014 5.0 5.0, 6.0, 7.0, 8.0, 5.5, 6.5, 7.5 Final POC PROTEIN UA 06/06/2014 Negative Negative Final POC UROBILINOGEN UA 06/06/2014 0.2 mg/dL 0.2, Negative, Normal, < 0.2 mg/dL, 1 mg/dL, < 0.2 E.U./dl, 1.0 E.U./dL, 0.2 mg/dL Final POC NITRITE UA 06/06/2014 Negative Final POC LEUKOCYTE ESTERASE UA 06/06/2014 Negative Negative Final Hospital Outpatient Visit on 06/03/2014 Component Date Value Range Status NA 06/03/2014 141 136-149 mmol/L Final K 06/03/2014 4.0 3.5-5.1 mmol/L Final CL 06/03/2014 103 98-109 mmol/L Final CO2 06/03/2014 30 24-31 mmol/L Final ANION GAP 06/03/2014 8 3-16 mmol/L Final GLUCOSE 06/03/2014 245* 70-109 mg/dL Final BUN 06/03/2014 18 7-18 mg/dL Final Creatinine, Serum/Plasma 06/03/2014 1.15 0.60-1.30 mg/dL Final eGFR if not 06/03/2014 45* >=60 mL/min/1.73m2 Final GLOMERULAR FILTRATION RATE,ESTIMATED mL/min/1.73m2 Less than 60 Chronic kidney disease,if found over a 3-month period. Less than 15 Kidney failure For Americans,multiply the calculated GFR by 1.21. CALCIUM 06/03/2014 9.8 8.3-10.5 mg/dL Final ALBUMIN 06/03/2014 3.7 3.2-5.0 g/dL Final PHOSPHORUS 06/03/2014 3.3 2.5-4.6 mg/dL Final BUN/CREA 06/03/2014 15.7 Final WBC 06/03/2014 9.6 4.0-11.0 K/uL Final RBC 06/03/2014 3.89 3.70-5.20 M/uL Final Hgb 06/03/2014 14.1 11.5-16.0 g/dL Final Hct 06/03/2014 40.9 34.0-47.0 % Final MCV 06/03/2014 105.3* 83.0-101.0 fL Final MCH 06/03/2014 36.1* 28.0-35.0 pg Final MCHC 06/03/2014 34.3 32.0-36.0 g/dL Final RDW 06/03/2014 14.9 <15.0 % Final Platelet Count 06/03/2014 179 140-440 K/uL Final MPV 06/03/2014 8.1 Final % Neutrophils 06/03/2014 54.3 45.0-82.0 % Final % Lymphocytes 06/03/2014 25.4 20.0-45.0 % Final % Monocytes 06/03/2014 12.8* 4.0-12.0 % Final % Eosinophils 06/03/2014 6.5* 0.0-5.0 % Final % Basophils 06/03/2014 1.0 0.0-1.0 % Final Absolute Neutrophils 06/03/2014 5.20 1.80-8.50 K/uL Final Absolute Lymphocytes 06/03/2014 2.40 0.60-3.20 K/uL Final Absolute Monocytes 06/03/2014 1.20* 0.00-1.00 K/uL Final Absolute Eosinophils 06/03/2014 0.60* 0.00-0.40 K/uL Final Absolute Basophils 06/03/2014 0.10 0.00-0.10 K/uL Final Hemoglobin A1c 06/03/2014 7.6* 4.3-6.0 % Final Estimated Average Glucose 06/03/2014 171 Final Assessment/Plan: Problem # 1: CHRONIC KIDNEY DISEASE STAGE III (MODERATE) 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 No proteinuria o r microalbuminuria (on ACEI). Serum creatinine is well within baseline. Continue good blood pressure control, and improved diabetic control to help preserve renal function. Problem # 2: HTN CKD UNS W/CKD STAGE I THRU STAGE IV/UNS Blood pressure is well controlled in clinic today. Fluid status appears stable. Continue cu rrent medication regimen. Problem # 3: DIABETES MELLITUS, TYPE II, UNCONTROLLED, WITH COMPLICATIONS Hgb A1c improving, almost to goal. Continue management with Dr. Pascal. Problem # 4: VITAMIN D DEFICIENCY Vitamin D at goal per labs at last visit. Calcium and phosphorus are fine. Follow up in 6 months, sooner if needed. Labs prior including renal panel, PTH. Patient verbalized agreement and understanding of above plan. CC:Dr. Francois Pascal docunara i n this encounter Plan of Treatment +--------+---------+ + + + | Date | Type | Specialty | Care Team | Description | +--------+---------+ + + + | 12/06/ | Office | Cardiology | Stephenie Paul, | | | 2019 | Visit | | MD Bob Sheehan | | | | | | [place], | | | | | | [place] [address] | | | | | | [phone] | | | | | | | | +--------+---------+ + + + documented as of this encounter Procedures + +--------+ + + + | Procedure Name | Priori | Date/Time | Associated Diagnosis | Comments | | | ty | | | | + +--------+ + + + | POCT URINALYSIS, | Routin | 06/06/2014 | CHRONIC KIDNEY | Results for this | | AUTO WITH CONF | e | 10:25 AM | DISEASE STAGE III | procedure are in the | | | | PDT | (MODERATE) | results section. | + +--------+ + + + documented in this encounter Results POCT Urinalysis Dipstick Automated (06/06/2014 10:25 AM PDT) + + + + [...] + + | Specific | 1.005 | 1.001 - 1.030 | | | | Valera, | | | | | | UA, [...] + + + | Urobilinoge | 0.2 mg/dL | 0.2, Negative, | | | | [...] III (moderate) | + + | DM type 2, uncontrolled, with renal complications (HCC) Type II or unspecified type | | diabetes mellitus with renal manifestations, uncontrolled | + + | HTN CKD UNS W/CKD STAGE I THRU STAGE IV/UNS Unspecified hypertensive kidney disease | | with chronic kidney disease stage I through stage IV, or unspecified | + + | Vitamin D deficiency Unspecified vitamin D deficiency | + + documented in this encounter
--- OUTSIDE RECORDS SUMMARY | ~2019-09-12 | XMS | Encounter Summary ---
Demographics + + + | Address | [address] | | | [place] [address] | + + + | Home Phone [...] | | | | | [place] [address] | | + + + + + | Valentín Saleh | ECON | [address] | | | | | [place] [address] | | + + + + + | Roberto Carlos Lennon | LEVI | Unknown | | + + + + + Care Team Providers + +------+ + | Care Radiation Oncology Therapist Name | Role | Phone | [...] + + | 11/09/ | Emergency | [facility] | [place], | Hematuria (Primary | | 2014 | | MED CTR EMERGENCY | [place] [address] | Dx); Vaginal | | | | [place] [address] | [place], [place] | abrasion, initial | | | | [place], [place] | [address] | encounter; UTI | | | | [address] | | (lower urinary tract | | | | [phone] | | infection) | +--------+ + + [...] be sent through Care Everywhere.ABRASION (SRAVANI PLUMMER)HEMATURIA (MOZAMBICAN)documented in this encounter Medications at Time of [...] might be different fr om the original. [facility] Alyson Lennon Emergency Department Encounter Note [address] [place] [address] PCP:Francois Pascal MD [phone] CHIEF COMPLAINT: Chief [...] type 2 (diabetes mellitus, type 2) ([facility]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 infarction ([facility]) (1994&1996) CAR with Hx of Myocardial infarction Other abnormal clinical finding Verebral Compression Fractures Glossitis CAD (coronary artery disease) CHF (congestive heart failure) ([facility]) Arthritis Old [place] (myocardial infarction) Carotid stenosis H/O ventricular septal [...] Concern None Social History Narrative Born in [facility] for 46 years. and Remarried 2 [...] pulsa tile masses : Within nurses the real estate listing consultant reexamines the genitals. The patient does have [...] (A) Clear PH UA 6.0 5.0-8.0 Specific [place] 1.010 1.001-1.030 PROTEIN UA Negative Negative BLOOD [...] sterling. A final report is available at [facility]. CT ABDOMEN AND PELVIS WITHOUT CONTRAST (CPT) [...] were reviewed along with EMS notes and group home record s if applicable. (See chart for [...] Pascal MD. Specialty: Family Medicine Contact information: [address] [place] [address] New Prescriptions LEVOFLOXACIN (LEVAQUIN) 500 MG TABLET Take 1 tablet by mouth Daily for 7 days. Portions of this chart may have been created with [employer] voice recognition software. Occasi onal wrong-word or [...] | | | | | | [place] [address] | | | | | | [phone] | | | | | | | [...] [address] | [place] | [phone] | | [facility] | | [address] | | | - LABORATORY | | [...] [address] | [place] | [phone] | | [facility] | | [address] | | | - LABORATORY | | [...] - 1.030 | [facility] | | | [place], | | | [facility] | | [...] [address] | [place] | [phone] | | [facility] | | [address] | | | - LABORATORY | | [...] | | preliminary report was sent by [employer] on 11/09/2014 at 8:36 PM | | [...] preliminary report was sent by | | [employer] on 11/09/2014 at 8:36 PM with nosignificant [...] | |A preliminary report was sent by [employer] on 11/09/2014 at 8:36 PM with no [...] + | [facility] | [address] | [place] | [phone] | | [facility] | | [address] | | | - LABORATORY | | [...] + | [facility] | [address] | [place] | [phone] | | [facility] | | [address] | | | - LABORATORY | | [...] | [employer] | | | [facility] | | [...] [address] | [place] | [phone] | | [facility] | | [address] | | | - LABORATORY | | [...] [address] | [place] | [phone] | | [facility] | | [address] | | | - LABORATORY | | [...] (H) | 7 - 18 mg/dL | [facility] | | | | | | ST. [...] mL/min/1.73m2 | [facility] | | | [place]ESE | RATE,ESTIMATED | | MEDICAL | | | | mL/min/1.40c1Qzit than | | CENTER - | | [...] [address] | [place] | [phone] | | [facility] | | [address] | | | - LABORATORY | | [...] + | [facility] | [address] | [place] | [phone] | | [facility] | | [address] | | | - LABORATORY | | [...]
--- OUTSIDE RECORDS SUMMARY | ~2019-09-12 | XMS | Encounter Summary ---
Demographics + + + | Address | [address] | | | [place] [address] | + + + | Home Phone [...] Author | [facility] | | | and Clarkeana | + + + | Organization | [facility] | | [...] | | | | | [place] [address] | | + + + + + | Valentín Saleh | ECON | [address] | | | | | [place] [address] | | + + + + + | Roberto Carlos Lennon | LEVI | Unknown | | + + + + + Care Team Providers + +------+ + | Care Aircraft Captain Name | Role | Phone | [...] + | 08/20/ | Telephone | [facility] | Francois Pascal, | Medication | | 2016 | | MEDICINE [address] [place] [address] | [address] | Management | | | | [address] [place], | [address] [place], | | | | | [place] [address] | [place] [address] | | | | | [phone] | [phone] | | | | | | | [...] that prescription for Bactrim DS sent to [facility].Electronically s igned by Leanne Johnson RN at [...] | | | | | | [place] [address] | | | | | | [phone] | | | | | | | | +--------+---------+ + + + documented as of this encounter Visit Diagnoses Not on filedocumented in this encounter"
--- OUTSIDE RECORDS SUMMARY | ~2019-09-12 | XMS | Encounter Summary ---
Demographics + + + | Address | [address] | | | [place] [address] | + + + | Home Phone [...] | [facility] | | | and Clarkeana | + + + | Organization | [facility] [...] | | | | | [place] [address] | | + + + + + | Valentín Saleh | ECON | [address] | | | | | [place] [address] | | + + + + + | Roberto Carlos Lennon | LEVI | Unknown | | + + + + + Care Team Providers + +------+ + | Care Senior Software Quality Engineer Name | Role | Phone | [...] | instability | [address] | [place] | | | | n | [address] | [address] | [place], | | | | | (ICD-10-CM) | [place] | [place] [address] | | | | | - [address] | [place] | Phone: | | | | | (ICD-9-CM) - | [address] | [phone] | | | | | Gait | Phone: | Fax: | | | | | instability | [phone] | [phone] | | | | | Procedures | Fax: | | | | | | pt eval | [phone] | | +--------+ + + + + + Encounter Details +--------+---------+ + + + | Date | Type | Department | Care Team | Description | +--------+---------+ + + + | 02/17/ | Office | [facility] | Francois Pascal, | Posture imbalance | | 2015 | Visit | MED CTR THERAPY PT | [place] [address] | (Primary Dx); | | | | OP [address] | [address] [place], | Impaired functional | | | | [place] | [place] [address] | mobility, balance, | | | | [address] | [phone] | gait, and endurance; | | | | [phone] | | Left ankle pain | | | | | Cheyenne Caballero, | | | | | | GENERAL SALES MANAGER [address] | | | | | | [place] | | | | | | [address] | | | | | | | [...] of this encounter Progress Notes Cheyenne Caballero, GENERAL SALES MANAGER - 02/17/2015 12:12 PM PSTFormatting of this note might be different f rom the original. [facility] CTR THERAPY PT OP [address] [place] [address] Physical Therapy Daily Treatment Note Date: 02/17/2015 Patient Information Patient Name: Alyson Lennon Date of : 1930 Age: 84 y.o. Encounter Diagnoses Code Name Primary? R29.3 Posture imbalance Yes Z74.09 Impaired functional mobility, balance, gait, and endurance M25.572 Left ankle pain Date of Onset: 10/24/2014 Referring Provider: Francois Pascal MD Rehab Precautions Office Visit from 12/24/2014 in [facility] CTR THERAPY PT OP Rehab Precautions Precautions Comments fall risk Start Time: 1100 Stop time: 1145 Duration: 45 minutes Timed Treatment Codes: 45 minutes # of PT Visits to Date: 10 Subjective: Reports she fell last week, fell over backward and hit her head. Ankle feels "about the socorro e" overall but does feel loosened up some after therapy. Pain Assessment: Pain Scale Used: NUMERIC Pain Rating Pre Assessment: 4 Pain Rating Post Assessment: 2 Location: left ankle Objective: Education: recommended pt see a dr immediately if she falls and hits her head again Manual therapy to increase ROM of left ankle- Stretching of left ankle DF, PF, inversion, eversion Stretching and strengthening ex and balance training to reduce fall risk- Tilt board side to side, fwd/back Sedestepping, bkwd walking Step ups, lateral step ups Calf stretches at stairs Clock stepping ex with one hand hold Assessment: Improved stepping activities-most difficulty with stepping back. Plan: Cont with balance training, stretches, strengthening. Electronically signed by: Cheyenne Caballero PTA, 02/17/2015 12:12 Patient Name: Alyson Lennon/: 1930/ documented in [...] | | | | | | [place] [address] | | | | | | [phone] | | | | | | | [...]
--- OUTSIDE RECORDS SUMMARY | ~2019-09-12 | XMS | Encounter Summary ---
Demographics + + + | Address | [address] | | | [place] [address] | + + + | Home Phone [...] Author | [facility] | | | and Clarkeana | + + + | Organization | [facility] | [...] | | | | | [place] [address] | | + + + + + | Valentín Saleh | ECON | [address] | | | | | [place] [address] | | + + + + + | Roberto Carlos Lennon | LEVI | Unknown | | + + + + + Care Team Providers + +------+ + | Care Newspaper Correspondent Name | Role | Phone | + +------+ + | Francois Pascal MD | PCP | | + +------+ + Encounter Details +--------+ + + + + | Date | Type | Department | Care Team | Description | +--------+ + + + + | 07/16/ | Hospital | [facility] | [place], | | | 2016 | Encounter | MED CTR LABORATORY | [address] | | | | | [address] [place] | [address] [facility] | | | | | [place] | [address] [place] | | | | | [address] | [id number] | | | | | [phone] | | | +--------+ + + + [...] | | | | | | hyperglycemia ([facility]) | | | | | | + [...] | | | | | | mellitus) ([facility]) | | | | | | + [...] | | | | | | [place] [address] | | | | | | [phone] | | | | | | | | +--------+---------+ + + + documented as of this encounter Visit Diagnoses Not on filedocumented in this encounter"
--- OUTSIDE RECORDS SUMMARY | ~2019-09-12 | XMS | Encounter Summary ---
Demographics + + + | Address | [address] | | | [place] [address] | + + + | Home Phone | | + + + | Preferred Language | Unknown | + + + | Marital Status | | + + + | Mu-Ism Affiliation | Unknown | + + + | Race | Unknown | + + + | Ethnic Group | Unknown | + + + Author + + + | Author | [facility] | | | and [place] | + + + | Organization | [facility] | | [...] | | | | | [place] [address] | | + + + + + | Valentín Saleh | ECON | [address] | | | | | [place] [address] | | + + + + + | Roberto Carlos Lennon | LEVI | Unknown | | + + + + + Care Team Providers + +------+ + | Care Taproom Attendant Name | Role | Phone | + +------+ + | Francois Pascal MD | PCP | | + +------+ + Encounter Details +--------+ + + + + | Date | Type | Department | Care Team | Description | +--------+ + + + + | 05/08/ | Documentati | [facility] | Katrina, | | | 2016 | on | NEPHROLOGY [address] | [address] | | | | | [address] | [address] | | | | | [place] | [address] | | | | | [address] | [address] | | | | | [phone] | | | +--------+ + + + [...] documented as of this encounter Progress Notes Aubree Pink RN - 05/09/2015 11:41 AM PSTLabs for appointment 06/12/15 sent to [facility].Elec tronically signed by Aubree Pink RN at 05/09/2015 11:42 AM PSTdocumented in this encount er Plan of Treatment +--------+---------+ + + + | Date | Type | Specialty | Care Team | Description | +--------+---------+ + + + | 12/06/ | Office | Cardiology | Stephenie Paul, | | | 2019 | Visit | | MD Bob Sheehan | | | | | | [place], | | | | | | [place] [address] | | | | | | [phone] | | | | | | | | +--------+---------+ + + + documented as of this encounter Visit Diagnoses Not on filedocumented in this encounter"
--- OUTSIDE RECORDS SUMMARY | ~2019-09-12 | XMS | Encounter Summary ---
Demographics + + + | Address | [address] | | | [place] [address] | + + + | Home Phone | | + + + | Preferred Language | Unknown | + + + | Marital Status | | + + + | Mormonism Affiliation | Unknown | + + + | Race | Unknown | + + + | Ethnic Group | Unknown | + + + Author + + + | Author | [facility] | | | and [place] | + + + | Organization | [facility] | | [...] | | | | | [place] [address] | | + + + + + | Valentín Saleh | ECON | [address] | | | | | [place] [address] | | + + + + + | Roberto Carlos Lennon | LEVI | Unknown | | + + + + + Care Team Providers + +------+ + | Care Network/Telecom Engineer Name | Role | Phone | + +------+ + | No, Physician | PCP | Unavailable | + +------+ + Encounter Details +--------+ + + + + | Date | Type | Department | Care Team | Description | +--------+ + + + + | 07/24/ | Abstract | [facility] [place] [facility] | Francois Pascal, | | | 2019 | | [facility] [place] | [address] | | | | | [address] | [address] [place], | | | | | [place], [place] | [place] [address] | | | | | [address] | [phone] | | | | | [phone] | | | +--------+ + + + [...] | | | | | | [place] [address] | | | | | | [phone] | | | | | | | | +--------+---------+ + + + documented as of this encounter Procedures + +--------+ + + + | Procedure Name | Priori | Date/Time | Associated Diagnosis | Comments | | | ty | | | | + +--------+ + + + | EXTERNAL LAB: BUN | Routin | 07/24/2019 | | Results for this | | | e | | | procedure are in the | | | | | | results section. | + +--------+ + + + | EXTERNAL LAB: | Routin | 07/24/2019 | | Results for this | | GLUCOSE | e | | | procedure are in the | | | | | | results section. | + +--------+ + + + | EXTERNAL LAB: ALT | Routin | 07/24/2019 | | Results for this | | | e | | | procedure are in the | | | | | | results section. | + +--------+ + + + | EXTERNAL LAB: AST | Routin | 07/24/2019 | | Results for this | | | e | | | procedure are in the | | | | | | results section. | + +--------+ + + + | EXTERNAL LAB: | Routin | 07/24/2019 | | Results for this | | ALKALINE PHOSPHATASE | e | | | procedure are in the | | | | | | results section. | + +--------+ + + + | EXTERNAL LAB: | Routin | 07/24/2019 | | Results for this | | BILIRUBIN, TOTAL | e | | | procedure are in the | | | | | | results section. | + +--------+ + + + | EXTERNAL LAB: | Routin | 07/24/2019 | | Results for this | | ALBUMIN | e | | | procedure are in the | | | | | | results section. | + +--------+ + + + | EXTERNAL LAB: | Routin | 07/24/2019 | | Results for this | | PROTEIN, TOTAL | e | | | procedure are in the | | | | | | results section. | + +--------+ + + + | EXTERNAL LAB: | Routin | 07/24/2019 | | Results for this | | CALCIUM | e | | | procedure are in the | | | | | | results section. | + +--------+ + + + | EXTERNAL LAB: CARBON | Routin | 07/24/2019 | | Results for this | | DIOXIDE | e | | | procedure are in the | | | | | | results section. | + +--------+ + + + | EXTERNAL LAB: | Routin | 07/24/2019 | | Results for this | | CHLORIDE | e | | | procedure are in the | | | | | | results section. | + +--------+ + + + | EXTERNAL LAB: | Routin | 07/24/2019 | | Results for this | | POTASSIUM | e | | | procedure are in the | | | | | | results section. | + +--------+ + + + | EXTERNAL LAB: SODIUM | Routin | 07/24/2019 | | Results for this | | | e | | | procedure are in the | | | | | | results section. | + +--------+ + + + | EXTERNAL LAB: TRE | Routin | 07/24/2019 | | Results for this | | | e | | | procedure are in the | | | | | | results section. | + +--------+ + + + | EXTERNAL LAB: EGFR | Routin | 07/24/2019 | | Results for this | | | e | | | procedure are in the | | | | | | results section. | + +--------+ + + + | EXTERNAL LAB: | Routin | 07/24/2019 | | Results for this | | CREATININE | e | | | procedure are in the | | | | | | results section. | + +--------+ + + + | CBC WITH | Routin | 07/24/2019 | | Results for this | | DIFFERENTIAL | e | | | procedure are in the | | | | | | results section. | + +--------+ + + + | COMPREHENSIVE | Routin | 07/24/2019 | | Results for this | | METABOLIC PANEL | e | | | procedure are in the | | | | | | results section. | + +--------+ + + + documented in this encounter Results CBC with Differential (07/24/2019) + +-------+ + + + | Component | Value | Ref Range | Performed | Pathologist | | | | | At | Signature | + +-------+ + + + | MCH | 33.0 | 27.0 - 33.0 pg | EXTERNAL | | | | | | LAB | | + +-------+ + + + | MCHC | 33.0 | 30.0 - 36.0 | EXTERNAL | | | | | g/dL | LAB | | + +-------+ + + + | % Basophils | 1.0 | 0.0 - 2.0 % | EXTERNAL | | | | | | LAB | | + +-------+ + + + + + | Specimen | + + | Blood | + + + +---------+ + + | Performing | Address | City/State/Zipcode | Phone Number | | Organization | | | | + +---------+ + + | EXTERNAL LAB | | | | + +---------+ + + Comprehensive Metabolic Panel (07/24/2019) + +-------+ + + + | Component | Value | Ref Range | Performed | Pathologist | | | | | At | Signature | + +-------+ + + + | Bun/Creatin | 28.6 | 6 - 28.6 | EXTERNAL | | | ine | | | LAB | | + +-------+ + + + | Anion Gap | 12 | 7 - 21 mmol/L | EXTERNAL | | | | | | LAB | | + +-------+ + + + | Globulin | 3.1 | 1.8 - 3.5 | EXTERNAL | | | | | | LAB | | + +-------+ + + + | Albumin/Kalani | 1.2 | 1.1 - 2.4 | EXTERNAL | | | bulin Ratio | | | LAB | | + +-------+ + + + + + | Specimen | + + | Blood | + + + +---------+ + + | Performing | Address | City/State/Zipcode | Phone Number | | Organization | | | | + +---------+ + + | EXTERNAL LAB | | | | + +---------+ + + External Lab: VALDEMAR (07/24/2019) + +-------+ + + + | Component | Value | Ref Range | Performed | Pathologist | | | | | At | Signature | + +-------+ + + + | BUN, | 18 | 6 - 23 | EXTERNAL | | | External | | | LAB | | + +-------+ + + + + + | Resulting Agency Comment | + + | [facility], [place] | + + + +---------+ + + | Performing | Address | City/State/Zipcode | Phone Number | | Organization | | | | + +---------+ + + | EXTERNAL LAB | | | | + +---------+ + + External Lab: Glucose (07/24/2019) + +--------+ + + + | Component | Value | Ref Range | Performed | Pathologist | | | | | At | Signature | + +--------+ + + + | Glucose, | 62 (A) | 70 - 100 | EXTERNAL | | | External | | | LAB | | + +--------+ + + + + + | [facility] Comment | + + [facility] | + + + +---------+ + + | Performing | Address | City/State/Zipcode | Phone Number | | Organization | | | | + +---------+ + + | EXTERNAL LAB | | | | + +---------+ + + External Lab: ALT (07/24/2019) + +-------+ + + + | Component | Value | Ref Range | Performed | Pathologist | | | | | At | Signature | + +-------+ + + + | ALT, | 13 | 7 - 52 | EXTERNAL | | | External | | | LAB | | + +-------+ + + + + + | Resulting Agency Comment | + + | [facility] [place] | + + + +---------+ + + | Performing | Address | City/State/Zipcode | Phone Number | | Organization | | | | + +---------+ + + | EXTERNAL LAB | | | | + +---------+ + + External Lab: AST (07/24/2019) + +-------+ + + + | Component | Value | Ref Range | Performed | Pathologist | | | | | At | Signature | + +-------+ + + + | AST, | 21 | 13 - 39 | EXTERNAL | | | External | | | LAB | | + +-------+ + + + + + | Resulting Agency Comment | + + | [facility], [place], [place] | + + + +---------+ + + | Performing | Address | City/State/Zipcode | Phone Number | | Organization | | | | + +---------+ + + | EXTERNAL LAB | | | | + +---------+ + + External Lab: Alkaline Phosphatase (07/24/2019) + +-------+ + + + | Component | Value | Ref Range | Performed | Pathologist | | | | | At | Signature | + +-------+ + + + | ALP, | 57 | 31 - 130 | EXTERNAL | | | External | | | LAB | | + +-------+ + + + + + | Resulting Agency Comment | + + | [facility], [place] | + + + +---------+ + + | Performing | Address | City/State/Zipcode | Phone Number | | Organization | | | | + +---------+ + + | EXTERNAL LAB | | | | + +---------+ + + External Lab: Bilirubin, Total (07/24/2019) + +-------+ + + + | Component | Value | Ref Range | Performed | Pathologist | | | | | At | Signature | + +-------+ + + + | Bilirubin, | 0.4 | 0 - 1.2 | EXTERNAL | | | Total, | | | LAB | | | External | | | | | + +-------+ + + + + + | Resulting Agency Comment | + + | [facility], [place], [place] | + + + +---------+ + + | Performing | Address | City/State/Zipcode | Phone Number | | Organization | | | | + +---------+ + + | EXTERNAL LAB | | | | + +---------+ + + External Lab: Albumin (07/24/2019) + +-------+ + + + | Component | Value | Ref Range | Performed | Pathologist | | | | | At | Signature | + +-------+ + + + | Albumin, | 3.6 | 3.5 - 5 | EXTERNAL | | | External | | | LAB | | + +-------+ + + + + + | [facility]ing Agency Comment | + + | [facility] [place] | + + + +---------+ + + | Performing | Address | City/State/Zipcode | Phone Number | | Organization | | | | + +---------+ + + | EXTERNAL LAB | | | | + +---------+ + + External Lab: Protein, Total (07/24/2019) + +-------+ + + + | Component | Value | Ref Range | Performed | Pathologist | | | | | At | Signature | + +-------+ + + + | Protein, | 6.7 | 6 - 8.3 | EXTERNAL | | | Total, | | | LAB | | | External | | | | | + +-------+ + + + + + | Resulting Agency Comment | + + | [facility], [place], [place] | + + + +---------+ + + | Performing | Address | City/State/Zipcode | Phone Number | | Organization | | | | + +---------+ + + | EXTERNAL LAB | | | | + +---------+ + + External Lab: Calcium (07/24/2019) + +-------+ + + + | Component | Value | Ref Range | Performed | Pathologist | | | | | At | Signature | + +-------+ + + + | Calcium, | 9.4 | 8.5 - 10.3 | EXTERNAL | | | External | | | LAB | | + +-------+ + + + + + | Resulting Agency Comment | + + | [facility], [place] | + + + +---------+ + + | Performing | Address | City/State/Zipcode | Phone Number | | Organization | | | | + +---------+ + + | EXTERNAL LAB | | | | + +---------+ + + External Lab: Carbon Dioxide (07/24/2019) + +-------+ + + + | Component | Value | Ref Range | Performed | Pathologist | | | | | At | Signature | + +-------+ + + + | Carbon | 27 | 19 - 31 | EXTERNAL | | | Dioxide, | | | LAB | | | External | | | | | + +-------+ + + + + + | Resulting Agency Comment | + + | [facility], [place], [place] | + + + +---------+ + + | Performing | Address | City/State/Zipcode | Phone Number | | Organization | | | | + +---------+ + + | EXTERNAL LAB | | | | + +---------+ + + External Lab: Chloride (07/24/2019) + +-------+ + + + | Component | Value | Ref Range | Performed | Pathologist | | | | | At | Signature | + +-------+ + + + | Chloride, | 103 | 95 - 112 | EXTERNAL | | | External | | | LAB | | + +-------+ + + + + + | Resulting Agency Comment | + + | [facility], [place] | + + + +---------+ + + | Performing | Address | City/State/Zipcode | Phone Number | | Organization | | | | + +---------+ + + | EXTERNAL LAB | | | | + +---------+ + + External Lab: Potassium (07/24/2019) + +-------+ + + + | Component | Value | Ref Range | Performed | Pathologist | | | | | At | Signature | + +-------+ + + + | Potassium, | 3.9 | 3.6 - 5.1 | EXTERNAL | | | External | | | LAB | | + +-------+ + + + + + | Resulting Agency Comment | + + | [facility], [place], [place] | + + + +---------+ + + | Performing | Address | City/State/Zipcode | Phone Number | | Organization | | | | + +---------+ + + | EXTERNAL LAB | | | | + +---------+ + + External Lab: Sodium (07/24/2019) + +-------+ + + + | Component | Value | Ref Range | Performed | Pathologist | | | | | At | Signature | + +-------+ + + + | Sodium, | 138 | 132 - 143 | EXTERNAL | | | External | | | LAB | | + +-------+ + + + + + | Resulting Agency Comment | + + | [facility], [place], [place] | + + + +---------+ + + | Performing | Address | City/State/Zipcode | Phone Number | | Organization | | | | + +---------+ + + | EXTERNAL LAB | | | | + +---------+ + + External Lab: CBC (07/24/2019) + + + + + + | Component | Value | Ref Range | Performed | Pathologist | | | | | At | Signature | + + + + + + | WBC, | 9.3 | 4.5 - 11 | EXTERNAL | | | External | | | LAB | | + + + + + + | HGB, | 15.3 | 12 - 16 | EXTERNAL | | | External | | | LAB | | + + + + + + | HCT, | 45.9 (A) | 35 - 45 | EXTERNAL | | | External | | | LAB | | + + + + + + | PLT, | 153 | 140 - 440 | EXTERNAL | | | External | | | LAB | | + + + + + + | Neutrophils | 51.6 | 39 - 80 | EXTERNAL | | | %, | | | LAB | | | External | | | | | + + + + + + | Lymphocytes | 34.8 | 24 - 44 | EXTERNAL | | | %, | | | LAB | | | External | | | | | + + + + + + | Monocytes | 8.2 | 0 - 12 | EXTERNAL | | | %, External | | | LAB | | + + + + + + | Eosinophils | 4.4 | 0 - 6 | EXTERNAL | | | %, | | | LAB | | | External | | | | | + + + + + + | RBC, | 4.67 | 3.8 - 5.1 | EXTERNAL | | | External | | | LAB | | + + + + + + | MCV, | 98 | 81 - 99 | EXTERNAL | | | External | | | LAB | | + + + + + + | RDW, | 15.2 (A) | 10.5 - 15 | EXTERNAL | | | External | | | LAB | | + + + + + + + + | Resulting Agency Comment | + + | [facility], [place] | + + + +---------+ + + | Performing | Address | City/State/Zipcode | Phone Number | | Organization | | | | + +---------+ + + | EXTERNAL LAB | | | | + +---------+ + + External Lab: eGFR (07/24/2019) + +-------+ + + + | Component | Value | Ref Range | Performed | Pathologist | | | | | At | Signature | + +-------+ + + + | eGFR, | 89 | 60 | EXTERNAL | | | External | | | LAB | | + +-------+ + + + + + | Specimen | + + | Blood | + + + + | Resulting Agency Comment | + + | [facility] [place], [place] | + + + +---------+ + + | Performing | Address | City/State/Zipcode | Phone Number | | Organization | | | | + +---------+ + + | EXTERNAL LAB | | | | + +---------+ + + External Lab: Creatinine (07/24/2019) + + + + + + | Component | Value | Ref Range | Performed | Pathologist | | | | | At | Signature | + + + + + + | Creatinine, | 0.63 (A) | 0.7 - 1.11 | EXTERNAL | | | External | | | LAB | | + + + + + + + + | Specimen | + + | Blood | + + + + | Resulting Agency Comment | + + | [facility] [place] | + + + +---------+ + + | Performing | Address | City/State/Zipcode | Phone Number | | Organization | | | | + +---------+ + + | EXTERNAL LAB | | | | + +---------+ + + documented in this encounter Visit Diagnoses Not on filedocumented in this encounter"
--- OUTSIDE RECORDS SUMMARY | ~2019-09-12 | XMS | Encounter Summary ---
Demographics + + + | Address | [address] | | | [place] [address] | + + + | Home Phone [...] Author | [facility] | | | and [place] | + + + | Organization | [facility] | | [...] | | | | | [place] [address] | | + + + + + | Valentín Saleh | ECON | [address] | | | | | [place] [address] | | + + + + + | Roberto Carlos Lennon | LEVI | Unknown | | + + + + + Care Team Providers + +------+ + | Care Biological Lab Technician Name | Role | Phone | [...] Description | +--------+--------+ + + + | 09/30/ | Refill | [facility] [place] [facility] | Francois Pascal, | Medication Refill | | 2014 | | [facility] [place] | [address] | | | | | [address] | [address], | | | | | [place] | [place] [address] | | | | | [address] | [phone] | | | | | [phone] | | | +--------+--------+ + + + [...] | | | | | | [place] [address] | | | | | | [phone] | | | | | | | | +--------+---------+ + + + documented as of this encounter Visit Diagnoses Not on filedocumented in this encounter"
--- OUTSIDE RECORDS SUMMARY | ~2019-09-12 | XMS | Encounter Summary ---
Demographics + + + | Address | [address] | | | [place] [address] | + + + | Home Phone [...] Author | [facility] | | | and [place] | + + + | Organization | [facility] | | [...] | | | | | [place] [address] | | + + + + + | Valentín Saleh | ECON | [phone] | | | | | [place] [address] | | + + + + + | Roberto Carlos Lennon | LEVI | Unknown | | + + + + + Care Team Providers + +------+ + | Care Bariatric Surgeon Name | Role | Phone | + +------+ + | Francois Pascal MD | PCP | | + +------+ + Reason for Visit + + + | Reason | Comments | + + + | Chronic Kidney | Stage III - 6 mo follow-up | | Disease | | + + + Encounter Details +--------+---------+ + + + | Date | Type | Department | Care Team | Description | +--------+---------+ + + + | 11/27/ | Office | [facility] | [place], | CHRONIC KIDNEY | | 2012 | Visit | NEPHROLOGY [address] | [address] | DISEASE STAGE III | | | | [address] | [address] | (MODERATE) (Primary | | | | [place] | [address] | Dx) | | | | [address] | [address] | | | | | [phone] | | | +--------+---------+ + + + [...] + + + | Blood Pressure | 128/68 | 11/27/2012 10:52 AM | | | | | PDT | | + + + + + | Pulse | 66 | 11/27/2012 10:52 AM | | | | | PDT | | + + + + + | Temperature | - | - | | + + + + + | Respiratory Rate | 16 | 11/27/2012 10:52 AM | | | | | PDT | | + + + + + | Oxygen Saturation | - | - | | + + + + + | Inhaled Oxygen | - | - | | | Concentration | | | | + + + + + | Weight | 76.8 kg (169 lb 6.4 | 11/27/2012 10:52 AM | | | | oz) | PDT | | + + + + + | Height | 162.6 cm (5' 4") | 11/27/2012 10:52 AM | | | | | PDT | | + + + + + | Body Mass Index | 29.08 | 11/27/2012 10:52 AM | | | | | PDT | | + + + + + documented in this encounter Patient Instructions Patient Instructions Kemar Herndon ARNP - 11/27/2012 11:23 AM PDTKidney function is stable. Please monitor blood pressure at home. Goal 110-130/60-80. Notify office if not within goal . Please avoid taking NSAIDs. These are some commonly used NSAIDs: ibuprofen (Motrin,Advil), naproxen (Aleve, Naprosyn), celecoxib (Celebrex), indomethacin (Indocin), meloxicam (Mobic). documented in this encounter Progress Notes Kemar Herndon ARNP - 11/27/2012 11:16 AM PDTFormatting of this note might be diff erent from the original. Nephrology Follow Up Visit Date: 11/27/2012 PCP: Francois Pascal HPI: Alyson Lennon is a 81 y.o. female following up for CKD. 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 Corado, hyperlipidemia, gout, glossitis, and vitamin D deficiency. Pt is following up due to elevated creatinine noted on routine labs with her primary provid er. Her baseline is 1.2-1.4. Labs on 11/14/12 showed creatinine of 1.73. Pt denies using NSA IDs, contrast exposure or having hypotension. No problems or changes to her health that she has noticed. Home blood pressure 120s/60s. Most recent serum creatinine was 1.18, eGFR 44ml/ min. Patient Active Problem List Diagnosis Date Noted POA DM (diabetes mellitus) 12/27/2011 Unknown Priority: High Hyperlipidemia Unknown Priority: High CHRONIC KIDNEY DISEASE STAGE III (MODERATE) Unknown Priority: High HYPERTENSION NEC 05/25/2010 Unknown Priority: High OSTEOARTHRITIS, ANKLE, LEFT 01/21/2010 Unknown Priority: High Gout, unspecified 01/21/2010 Unknown Priority: Medium Preventative health care 03/23/2012 Unknown CAROTID STENOSIS [...] Unknown ECHO 03/04/09, LVEF 65% 03/04/2009 Unknown Outpatient Prescriptions Marked as Taking for the 11/27/12 encounter (Office Visit) with LAURO Kern Medication Status Sig Dispense Refill allopurinol (ZYLOPRIM) 100 mg tablet Active TAKE 1 TABLET BY MOUTH TWICE DAILY 180 tab let 1 amLODIPine (NORVASC) 5 mg tablet Active Take 1 tablet by mouth Daily. 90 tablet 1 aspirin (ASPIRIN EC) 81 MG EC tablet Active Take2 tablets by mouth Tuesday thru Tuesday and 325 mg on Tuesday aspirin 325 mg tablet Active Take 1 by mouth on Sundays Calcium Carbonate-Vitamin D 600-200 MG-UNIT TABS Active Take 2 tablets by mouth daily Cinnamon 500 MG CAPS Active Take 1 capsule by mouth 2 times daily. colchicine 0.6 mg tablet Active 1-2 tablets by mouth as needed ergocalciferol (VITAMIN D-2) 50,000 units capsule Active Take 50,000 Units by mouth Onc e a week. fluticasone (FLONASE) 50 mcg/nasal spray Active 2 sprays by Nasal route as needed. fluticasone (FLONASE) 50 mcg/nasal spray Discontinued 2 sprays each nostril daily folic acid 1 mg tablet Active Take 1 tablet by mouth Daily. 90 tablet 3 furosemide (LASIX) 40 mg tablet Active TAKE 1 TABLET BY MOUTH EVERY DAY 90 tablet 3 insulin glargine (LANTUS) 100 units/mL injection Active Inject 105 Units under the skin nightly. JANUVIA 100 MG tablet Active TAKE ONE TABLET BY MOUTH EVERY DAY 90 each 1 LANTUS 100 UNIT/ML injection Active INJECT 110 UNITS QS AT BEDTIME 50 mL 1 LIDEX 0.05 % cream Active APPLY ONE DAUB TOPICALLY ONCE DAILY 60 g 0 lisinopril (PRINIVIL,ZESTRIL) 40 MG tablet Active TAKE 1 TABLET BY MOUTH EVERY DAY 90 tablet 3 methotrexate 2.5 mg tablet Active TAKE 5 TABLETES BY MOUTH WEEKLY 20 tablet 1 metoprolol (TOPROL-XL) 200 MG 24 hr tablet Active TAKE 1 TABLET BY MOUTH EVERY DAY 90 tablet 3 multivitamin (THERAGRAN) per tablet Active Take 1 by mouth daily niacin (NIASPAN) 500 mg CR tablet Active Take 1 tablet by mouth Daily. 30 tablet 6 NOVOLOG 100 UNIT/ML injection Active INJECT DIRECTED, 15 UNITS IN THE MORNING, 20 UN ITS BEFORE LUNCH AND 25 UNITS BEFORE DINNER 20 mL 5 simvastatin (ZOCOR) 40 mg tablet Active TAKE 1/2 TABLET BY MOUTH EVERY DAY 135 tablet 1 Allergies Allergen Reactions Codeine Sulfate Uknown Darvon Nausea Only Estrogens Unknown ROS: Chronic fatigue. Denies anorexia, fatigue, chest pain, dyspnea, orthopnea, edema, naus ea, vomiting, dysuria, hematuria, urinary frequency. Physical Exam: Filed Vitals: 11/27/12 1052 BP: 128/68 Pulse: 66 Resp: 16 Height: 1.626 m (5' 4") Weight: 76.839 kg (169 lb 6.4 oz) Constitutional: Elderly female, appears well-developed and well-nourished. No acute distres s. Mouth/Throat: Oropharynx is clear and moist. Eyes: Pupils are equal, round, and reactive to light. Neck: Neck supple. No JVD present. Cardiovascular: Normal rate, regular rhythm and normal heart sounds. 2/6 systolic murmur. T race edema. Lungs: Effort normal and breath sounds normal. No respiratory distress. No crackles or whee zes. Abdominal: Soft. Bowel sounds are normal. No distension or tenderness. Musculoskeletal: Ambulates independently. Neurological: Alert. Skin: Skin is warm. No rash. Psychiatric: Normal mood and affect. Labs reviewed with patient: Lab Results Component Value Date CREA 1.18 11/23/2012 BUN 21* 11/23/2012 NA 139 11/23/2012 K 3.9 11/23/2012 CL 101 11/23/2012 CO2 29 11/23/2012 Lab Results Component Value Date PTH 39 09/11/2012 CALCIUM 9.2 11/23/2012 PHOS 3.9 11/23/2012 ALBUMIN Date Value Range Status 11/23/2012 3.4 3.2 - 5.0 gm/dL Final Estimated GFR Date Value Range Status 11/23/2012 44* >60 mL/min/A Final For -Americans, please multiply the result by 1.210 This is an estimated GFR and is based on a standard adult body mass (A=1.73m2) and serum creatinine Lab Results Component Value Date WBC 11.4* 11/14/2012 HGB 13.1 11/14/2012 HCT 39.7 11/14/2012 MCV 107.9* 11/14/2012 Microalbumin/cr ratio: 27 Assessment/Plan: Problem # 1: CHRONIC KIDNEY DISEASE STAGE III (MODERATE) (ICD-585.3) 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 Fortunately no p roteinuria and microalbumin/cr ratio is normal currently. Serum creatinine had a recent fluc tuation but is already back down, below previous baseline. Renal ultrasound showed normal sized kidneys without hydronephrosis, with increased echogen icity. Discussed continued goal of preserving kidney function with good glycemic and blood pressur e control, while avoiding over control. Also avoidance of nephrotoxins such as NSAIDs and co ntrast imaging. She is on WILLA inhibitor therapy. Problem # 2: HTN CKD UNS W/CKD STAGE I THRU STAGE IV/UNS (ICD-403.90) Blood pressure appears to be quite well controlled on current regimen. No change to regimen . Problem # 3: DIABETES MELLITUS, TYPE II, CONTROLLED, WITH COMPLICATIONS (ICD-250.90) Neuropathy, retinopathy and possible nephropathy. Followed by primary provider. Problem # 4: VITAMIN D DEFICIENCY (ICD-268.9) On supplementation. Calcium and phosphorus are within goal. Follow up in 6 months, sooner if needed. Labs prior including renal panel, CBC, vitamin D 2 5 OH. Patient verbalized agreement and understanding of above plan. CC: Francois Pascal [facility] Review of Systems Physical Exam docunara roman this encounter Plan of Treatment +--------+---------+ + + + | Date | Type | Specialty | Care Team | Description | +--------+---------+ + + + | 12/06/ | Office | Cardiology | Stephenie Paul, | | | 2019 | Visit | | MD Rojas [facility] | | | | | | [place], | | | | | | [place] [address] | | | | | | [phone] | | | | | | | | +--------+---------+ + + + documented as of this encounter Visit Diagnoses + + | Diagnosis | + + | CHRONIC KIDNEY DISEASE STAGE III (MODERATE) - Primary Chronic kidney disease, Stage | | III (moderate) | + + documented in this encounter
--- OUTSIDE RECORDS SUMMARY | ~2019-09-12 | XMS | Encounter Summary ---
Demographics + + + | Address | [address] | | | [place] [address] | + + + | Home Phone [...] + | Author | [facility] | | | and [place] | + + + | Organization | [facility] | [...] | | | | | [place] [address] | | + + + + + | Valentín Saleh | ECON | [address] | | | | | [place] [address] | | + + + + + | Roberto Carlos Lennon | LEVI | Unknown | | + + + + + Care Team Providers + +------+ + | Care Robotic Technician Name | Role | Phone | + +------+ + | Francois Pascal MD | PCP | | + +------+ + Encounter Details +--------+ + + + + | Date | Type | Department | Care Team | Description | +--------+ + + + + | 07/19/ | Orders Only | [facility] | [place], | CHRONIC KIDNEY | | 2012 | | NEPHROLOGY [address] | [address] | DISEASE STAGE III | | | | [address] | [address] [facility] | (MODERATE) (Primary | | | | [place], [place] | [address] [place], [place] | Dx) | | | | [address] | [address] | | | | | [phone] | | | +--------+ + + + [...] encounter Progress Notes Zaynab Humphries RN - 07/19/2012 2:24 PM PDTLabs for nephrology appt on 08/31/12 sent to [facility] documented in thi s encounter Plan of Treatment +--------+---------+ + + + | Date | Type | Specialty | Care Team | Description | +--------+---------+ + + + | 12/06/ | Office | Cardiology | Stephenie Paul, | | | 2019 | Visit | | MD Bob Sheehan | | | | | | [place], | | | | | | [place] [address] | | | | | | [phone] | | | | | | | | +--------+---------+ + + + documented as of this encounter Results Renal Function Panel (09/11/2012 9:03 AM PDT) [...] | performed on the [facility] | | [facility] [place] | | | | [facility] [...] + | [facility] | [address] | [place] | [phone] | | [facility] | | [address] | | | - LABORATORY | | | | + + + + + | [facility] | [address] | [place] | | | [facility] | | [id number] [place] [address] | | | - LABORATORY | | | | + + + + + documented in this encounter Visit Diagnoses + + | Diagnosis | + + | CHRONIC KIDNEY DISEASE STAGE III (MODERATE) - Primary Chronic kidney disease, Stage | | III (moderate) | + + documented in this encounter"
--- OUTSIDE RECORDS SUMMARY | ~2019-09-12 | XMS | Encounter Summary ---
Demographics + + + | Address | [address] | | | [place] [address] | + + + | Home Phone [...] | Author | [facility] | | | and [place] | + + + | Organization | [facility] | | | and [place] | + + + | Address | Unknown | + + + | Phone | Unavailable | + + + Support + + + + + | Name | Relationship | Address | Phone | + + + + + | Sigrid Lennon | ECON | [address] | | | | | [place] [address] | | + + + + + | Valentín Saleh | ECON | [address] | | | | | [place] [address] | | + + + + + | Roberto Carlos Lennon | LEVI | Unknown | | + + + + + Care Team Providers + +------+ + | Care Guest Services Coordinator Name | Role | Phone | + +------+ + | Francois Pascal MD | PCP | | + +------+ + Reason for Visit + +--------+ + | Reason | Onset | Comments | | | Date | | + +--------+ + | Medication Follow-up | 04/29/ | | | | 2018 | | + +--------+ + Encounter Details +--------+ + + + + | Date | Type | Department | Care Team | Description | +--------+ + + + + | 04/29/ | Telephone | [facility] [place] | [place], | Medication Follow-up | | 2018 | | NEPHROLOGY [address] | [address] | | | | | [address] | [address] [facility] | | | | | [place] | [address] | | | | | [address] | [address] | | | | | [phone] | | | +--------+ + + + [...] this encounter Miscellaneous Notes Telephone Encounter - Aubree Pink RN - 04/29/2017 2:32 PM DEISY Boss at [facility] report that it was a perfumer error. Patient has been receiving metoprolol succinate, it was just written on the MAR as metoprolol tartrate. She will fix the error. elephone Encounter - Aubree Pink RN - 04/29/2017 2:26 PM PST----- Message from LAURO Reaves sent at 018 14:23 PST ----- BP is looking better, most are 120-130 mmhg systolic. I did notice on the records that were sent that the metoprolol is ordered on their MAR as metoprolol tartrate 100 mg daily. I ord ered metoprolol succinate. Please clarify with her care facility. documented in this encounter Plan of Treatment +--------+---------+ + + + | Date | Type | Specialty | Care Team | Description | +--------+---------+ + + + | 12/06/ | Office | Cardiology | Stephenie Paul, | | | 2019 | Visit | | MD Bob Sheehan | | | | | | [place], | | | | | | [place] [address] | | | | | | [phone] | | | | | | | | +--------+---------+ + + + documented as of this encounter Visit Diagnoses Not on filedocumented in this encounter"
--- OUTSIDE RECORDS SUMMARY | ~2019-09-12 | XMS | Encounter Summary ---
Demographics + + + | Address | [address] | | | [place] [address] | + + + | Home Phone | | + + + | Preferred Language | Unknown | + + + | Marital Status | | + + + | Scientology Affiliation | Unknown | + + + | Race | Unknown | + + + | Ethnic Group | Unknown | + + + Author + + + | Author | [facility] | | | and [place] | + + + | Organization | [facility] | | | | | [place] [address] | | + + + + + | Valentín Saleh | ECON | [address] | | | | | [place] [address] | | + + + + + | Roberto Carlos Lennon | LEVI | Unknown | | + + + + + Care Team Providers + +------+ + | Care Customer Support Agent Name | Role | Phone | + +------+ + | Francois Pascal MD | PCP | | + +------+ + Reason for Visit + + + | Reason | Comments | + + + | Dental Problem | | + + + Encounter Details +--------+ + + + + | Date | Type | Department | Care Team | Description | +--------+ + + + + | 12/04/ | Emergency | [facility] | Jose G Reich, | Bleeding (Primary | | 2018 | | [facility] | MD [address] | Dx) | | | | CENTER [address] | [place] | | | | | [place] | [address] | | | | | [address] | | | | | | [phone] | | | +--------+ + + + [...] + + + | Blood Pressure | 157/48 | 12/04/2017 5:45 PM | | | | | PDT | | + + + + + | Pulse | 58 | 12/04/2017 5:45 PM | | | | | PDT | | + + + + + | Temperature | 35.9 C (96.7 F) | 12/04/2017 12:44 PM | | | | | PDT | | + + + + + | Respiratory Rate | 12 | 12/04/2017 12:44 PM | | | | | PDT | | + + + + + | Oxygen Saturation | 89% | 12/04/2017 5:45 PM | | | | | PDT | | + + + + + | Inhaled Oxygen | - | - | | | Concentration | | | | + + + + + | Weight | 68 kg (150 lb) | 12/04/2017 12:44 PM | | | | | PDT | | + + + + + | Height | 165.1 cm (5' 5") | 12/04/2017 12:44 PM | | | | | PDT | | + + + + + | Body Mass Index | 24.96 | 12/04/2017 12:44 PM | | | | | PDT [...] | | 0 | | | | Hwtyglh-Vatufyfyu-Zn | mouth Daily. | | | | 9 | | tamin D (CALCIUM 500 | | | | | | | PO) | | | | | | + + + +---------+ + + | cholecalciferol | Take 1,000 Units by | | 0 | | | | (VITAMIN D-3) 1000 | mouth Daily. | | | | 9 | | units TABS | | | [...] documented as of this encounter ED Notes Jsoe G Reich MD - 12/04/2017 5:26 PM PDTFormatting of this note might be different fro m the original. eMERGENCY dEPARTMENT eNCOUnter CHIEF COMPLAINT Chief Complaint Patient presents with Dental Problem HPI Alyson Lennon is a 86 y.o. female who presents with bleeding. She is on Xarelto had a de ntal extraction a couple days ago. Today she had some oozing so she was sent to the ER. Carmelo blunt has no current complaints. No fever or cough. No vomiting or diarrhea. 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 ALLOPURINOL (ZYLOPRIM) 100 MG TABLET TAKE ONE TABLET BY MOUTH TWICE A DAY ASPIRIN (ASPIRIN EC) 81 MG EC TABLET Take 1 tablet by mouth Daily. ATORVASTATIN (LIPITOR) 40 MG TABLET Take 1 tablet by mouth nightly. BD AUTOSHIELD DUO 30G X 5 MM MISC BISACODYL (DULCOLAX) [address] 1 suppository rectally Daily as needed for Constipation. XNRYTGA-CSHMFGMSG-ERTCQTN D (CALCIUM 500 PO) Take 1 tablet by mouth Daily. CHOLECALCIFEROL (VITAMIN D-3) 1000 UNITS TABS Take 1,000 Units by mouth Daily. COLCHICINE 0.6 MG TABLET 1 tablet by mouth twice daily as needed for gout flare DOCUSATE SODIUM (COLACE) 250 MG CAPSULE Take 250 mg by mouth 2 times daily. ESCITALOPRAM (LEXAPRO) 10 MG TABLET Take 1 tablet by mouth Daily. FOLIC ACID 1 MG TABLET Take 1 tablet by mouth Daily. FUROSEMIDE (LASIX) 20 MG TABLET Take 1 tablet by mouth Daily. HYDROCODONE-ACETAMINOPHEN (NORCO) 5-325 MG PER TABLET Take 1 tablet by mouth every 4 ho urs as needed for Pain. INSULIN ASPART (NOVOLOG FLEXPEN) 100 UNITS/ML INJECTION PEN Inject 4-12 Units under the skin 4 times daily (with meals and nightly). INSULIN GLARGINE (LANTUS) 100 UNITS/ML INJECTION (VIAL) 10 units every morning and 10 u nits every evening LISINOPRIL (PRINIVIL, ZESTRIL) 20 MG TABLET TAKE ONE TABLET BY MOUTH EVERY DAY MAGNESIUM HYDROXIDE (MILK OF MAGNESIA PO) Take 30 mLs by mouth as needed. METHOTREXATE 2.5 MG TABLET Take 5 mg by mouth Once a week. Indications: Rheumatoid Arth ritis METOPROLOL SUCCINATE (TOPROL-XL) 100 MG ER TABLET Take 1 tablet by mouth Daily. MULTIVITAMIN (THERAGRAN) PER TABLET Take 1 by mouth daily NUTRITIONAL SUPPLEMENTS (ESPERANZA PO) Take by mouth 2 times daily. POLYETHYLENE GLYCOL (MIRALAX) PACKET Take 1 diluted packet by mouth Daily as needed. SODIUM PHOSPHATE (FLEET) ENEMA Place 133 mLs rectally Daily as needed for Constipation. XARELTO 15 MG TABLET Take 15 mg by mouth Daily (with dinner). ALLERGIES Allergies Allergen Reactions Codeine Sulfate Nausea And Vomiting Darvon Nausea Only Estrogens Patient can't remember Pneumococcal Vaccines Other (See Comments) Thinks it was a Prevnar, arm became red/sore/swollen FAMILY HISTORY Family History Problem Relation Age of Onset Heart attack Mother possible VSD Heart disease Mother Heart disease Sister Other (see comment) Other family history of Winchester's Disease Kidney disease Neg Hx SOCIAL HISTORY Social History Social History Marital status: Spouse name: Sigrid Number of children: 2 Years of education: N/A Occupational History Retired Social History Main Topics Smoking status: Never Smoker Smokeless tobacco: Never Used Alcohol use No Drug use: No Sexual activity: Not Asked Other Topics Concern None Social History Narrative Born in [facility] for 46 years. and Remarried 2 sons local. Patient has never smoked. Alcohol Use - no Exercise: None Caffeine: Decaf only Living Situation: Lives with Shannon REVIEW OF SYSTEMS All systems reviewed and negative except as noted on HPI and/or limited by patient conditio n PHYSICAL EXAM VITAL SIGNS: Temp: 35.9 C (96.7 F) Pulse: 54 Resp: 12 SpO2: 96 % BP: 167/58 Constitutional: Well developed, Well nourished, No acute distress, Non-toxic appearance. HENT: Normocephalic, Atraumatic, Oropharynx moist, No oral exudates, Nose normal. Neck- No rmal range of motion, No tenderness, Supple, No stridor, right upper gums has a hole where h er tooth extraction was and it has been oozing since then. Eyes: PERRL, EOMI, Conjunctiva normal, No discharge. ,Integument: Warm, Dry, No erythema, No rash. EKG Not done RADIOLOGY No results found. ED COURSE & MEDICAL DECISION MAKING Last Set of Vital Signs: Temp: 35.9 C (96.7 F) Pulse: 54 Resp: 12 SpO2: 96 % BP: 167/58 Pertinent Labs, Nurses Note, & Imaging studies reviewed. (See chart for details) 86 -year-old female with some dental bleeding. Initially a tea bag was placed without succ ess. She then had quick clot placed twice with compression. She continued to use. I then injected 8 cc of Marcaine with 2% epinephrine. She continued to ooze and bleed. I then had the nurse hold tranexamic acid on a cotton ball which finally stopped the bleeding. At sorin ssessment at 1730 she states she feels fine and has no longer bleeding. FINAL IMPRESSION Post dental extraction LABS FROM THIS VISIT OR MOST RECENT ER VISIT: Results for orders placed or performed in visit on 10/11/17 Parathyroid Hormone, Intact Result Value Ref Range PTH Intact 42 12 - 88 pg/mL Jose G Reich MD 12/04/17 1730 Tere Chavez RN - 12/04/2017 12:44 PM [facility] for continued bleeding afte r a tooth extraction that was completed on Tuesday. documented in this encounter Plan of Treatment +--------+---------+ + + + | Date | Type | Specialty | Care Team | Description | +--------+---------+ + + + | 12/06/ | Office | Cardiology | Stephenie Paul, | | | 2019 | Visit | | MD Bob Sheehan | | | | | | [place], | | | | | | [place] [address] | | | | | | [phone] | | | | | | | | +--------+---------+ + + + documented as of this encounter Visit Diagnoses + + | Diagnosis | + + | Bleeding - Primary Hemorrhage, unspecified | + + documented in this encounter Administered Medications + +--------+ +--------+------+ + | Medication Order | MAR | Action | Dose | Rate | Site | | | Action | Date | | | | + +--------+ +--------+------+ + | tranexamic acid (CYKLOKAPRON) | Given | 12/05/19 | 500 mg | | Nare-Bot | | 100 mg/mL topical solution 500 mg | | 18 4:23 | | | h | | 500 mg, Nasal, ONCE, Sun | | PM PDT | | | | | 12/04/17 at 1610, For 1 dose, Soak | | | | | | | into a pledget and insert into | | | | | | | affected nare., | | | | | | + +--------+ +--------+------+ + +---+---+ | | | +---+---+ documented in this encounter
--- OUTSIDE RECORDS SUMMARY | ~2019-09-12 | XMS | Encounter Summary ---
Demographics + + + | Address | [address] | | | [place] [address] | + + + | Home Phone [...] | [facility] | | | and [place] | + + + | Organization | [facility] | | | [...] | | | | | [place] [address] | | + + + + + | Valentín Saleh | ECON | [address] | | | | | [place] [address] | | + + + + + | Roberto Carlos Lennon | LEVI | Unknown | | + + + + + Care Team Providers + +------+ + | Care Cosmetic Sales Name | Role | Phone | + +------+ + | Francois Pascal MD | PCP | | + +------+ + Reason for Visit Service/Procedure (Routine) +--------+--------+ + + + + | Status | Reason | Specialty | Diagnoses / | Referred By | Referred To | | | | | Procedures | Contact | Contact | +--------+--------+ + + + + | Closed | | Radiology | Diagnoses | | [facility] | | | | | Left ankle | [place], | [address] | | | | | pain | Glenn Richards MD | [place], | | | | | Procedures | [address] | [place] | | | | | [place] | [facility] | [address] | | | | | ARTHROCENTES | [place], [place] | Phone: | | | | | [place] | [address] | [phone] | | | | | ASPIR&/INJ | Phone: | Fax: | | | | | INTERM | [phone] | [phone] | | | | | JT/BURS W/O | Fax: | | | | | | [place] | [phone] | | | | | | TRIAMCINOLON | | | | | | | E ACET INJ | | | | | | | NOS, 10 MG | | | | | | | AR | | | | | | | FLUOROSCOPIC | | | | | | | GUIDANCE | | | | | | | NEEDLE | | | | | | | PLACEMENT | | | | | | | Left | | | | | | | tibiotalar | | | | | | | joint | | | | | | | injection-AP | | | | | | | PT 5/29 | | | +--------+--------+ + + + + Encounter Details +--------+ + + + + | Date | Type | Department | Care Team | Description | +--------+ + + + + | 08/02/ | Hospital | [facility] | Glenn Miramontes | 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 | Encounter | MED CTR XRAY [address] | T, [address] | osteoarthritis of | | | | [place] | [place], [place] | left ankle (Primary | | | | [place] [address] | [address] | Dx); Left ankle pain | | | | [phone] | | | | | | | Principal Planner, [facility] | | | | | | [place] | | +--------+ + + + + [...] this encounter Last Filed Vital Signs + +---------+ + + | Vital Sign | Reading | Time Taken | Comments | + +---------+ + + | Blood Pressure | 143/69 | 08/02/2014 10:11 AM | | | | | PDT | | + +---------+ + + | Pulse | 70 | 08/02/2014 10:11 AM | | | | | PDT | | + +---------+ + + | Temperature | - | - | | + +---------+ + + | Respiratory Rate | - | - | | + +---------+ + + | Oxygen Saturation | - | - | | + +---------+ + + | Inhaled Oxygen | - | - | | | Concentration | | | | + +---------+ + + | Weight | - | - | | + +---------+ + + | Height | - | - | | + +---------+ + + | Body Mass Index | - | - | | + +---------+ + + documented in this encounter Medications at Time [...] mouth | | 0 | 10/01/19 | 06/18/201 | | tablet | as needed | [...] | | | | | | [place] [address] | | | | | | [phone] | | | | | | | | +--------+---------+ + + + documented as of this encounter Procedures + +--------+ + + + | Procedure Name | Priori | Date/Time | Associated Diagnosis | Comments | | | ty | | | | + +--------+ + + + | FL ASPIRATION | Routin | 08/02/2014 | Left ankle pain | Results for this | | INJECTION | e | 10:07 AM | | procedure are in the | | INTERMEDIATE JOINT | | PDT | | results section. | | LEFT | | | | | + +--------+ + + + documented in this encounter Results FL Asp Inj Intermediate Joint Left (08/02/2014 10:07 AM PDT) + + | Specimen | + + | | + + + + + | Narrative | Performed At | + + + | 08/02/2014 LEFT INTRAARTICULAR ANKLE INJECTION CLINICAL | [facility] | | HISTORY: CHRONIC LEFT ANKLE PAIN AND POST-TRAUMATIC ARTHRITIS Alyson | [facility] | | Autumn Lennon presents to the fluoroscopy suite for a [facility] | | fluoroscopically-guided left intraarticular ankle injection as part of | - IMAGING | | conservative management for chronic pain and post-traumatic | | | osteoarthritis of the left ankle. After informed consent was | | | obtained, the patient laid in the supine position on the fluoroscopy | | | table. The left tibiotalar joint was located under fluoroscopic | | | guidance. The area was prepped and draped in a sterile fashion. Then | | | a 25-gauge 1.5 inch needle was inserted into this region and | | | approximately 3 mL buffered 1% lidocaine was infused as the needle | | | was inserted into the joint space under fluoroscopic guidance. | | | Confirmation into the joint capsule was obtained with infusion of | | | approximately 1 mL Omnipaque contrast, which showed capsular flow. | | | Then, a combination of 1 mL of 40 mg/mL Kenalog and 2 mL 1% | | | lidocaine was infused. The patient tolerated the procedure well | | | without complications. Pre- and post-procedure blood pressure was | | | stable. The patient was given verbal as well as written followup | | | instructions. The patient reported good improvement in pain symptoms | | | post-procedure. Prior to the start of the procedure, the | | | following were performed or verified, including correct patient | | | identity, correct site/side marked and verified, agreement of the | | | procedure to be done, correct patient positioning and an accurate | | | procedure consent form. Any safety precautions based on clinical | | | history and/or medication use have been addressed. I personally | | | performed the procedure above. Estimated blood loss: Minimal | | | Complications: None Findings: As expected Anesthesia: Local 1% | | | Lidocaine | | + + + + + + + + | Performing | Address | City/State/Zipcode | Phone Number | | Organization | | | | + + + + + | [facility] | [address] 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 | + + | Left ankle pain Pain in joint, ankle and foot | + + documented in this encounter Administered Medications + +--------+ +-------+------+------+ | Medication Order | MAR | Action | Dose | Rate | Site | | | Action | Date | | | | + +--------+ +-------+------+------+ | iohexol (OMNIPAQUE 300) 300 | Given | 08/03/19 | 4 mLs | | | | mg/mL injection 4 mL 4 mL, | | 15 10:04 | | | | | INTRATHECAL, ONCE, 08/02/14 at | | AM PDT | | | | | 1015, For 1 dose | | | | | | + +--------+ +-------+------+------+ +---+---+ | | | +---+---+ + +-------+ +------+---+ + | lidocaine 1% injection 1 mL 1 | Given | 08/03/19 | 1 mL | | Other | | mL, Intradermal, ONCE, Fri | | 15 10:01 | | | (Comment | | 08/02/14 at 1015, For 1 dose | | AM PDT | | | ) | + +-------+ +------+---+ + +---+---+ | | | +---+---+ + +-------+ +------+---+---+ | sodium bicarbonate (NEUT) 4% | Given | 08/03/19 | 1 mL | | | | injection 1 mL 1 mL, | | 15 10:01 | | | | | Intravenous, ONCE, 08/02/14 at | | AM PDT | | | | | 1015, For 1 dose, Use for | | | | | | | addition to other parenteral | | | | | | | solutions., | | | | | | + +-------+ +------+---+---+ +---+---+ | | | +---+---+ + +-------+ +-------+---+---+ | triamcinolone acetonide | Given | 08/03/19 | 40 mg | | | | (KENALOG-40) 40 mg/mL injection | | 15 10:07 | | | | | 40 mg 40 mg, Intra-articular, | | AM PDT | | | | | ONCE, Tue08/02/14 at 1015, For 1 | | | | | | | dose, Shake well. Not for IV | | | | | | | use., | | | | | | + +-------+ +-------+---+---+ +---+---+ | | | +---+---+ documented in this encounter"
--- OUTSIDE RECORDS SUMMARY | ~2019-09-12 | XMS | Encounter Summary ---
Demographics + + + | Address | [address] | | | [place] [address] | + + + | Home Phone [...] | Author | [facility] | | | and [place] | + + + | Organization | [facility] | | | and [...] | | | | | [place] [address] | | + + + + + | Valentín Saleh | ECON | [address] | | | | | [place] [address] | | + + + + + | Roberto Carlos Lennon | LEVI | Unknown | | + + + + + Care Team Providers + +------+ + | Care Account Development Executive Name | Role | Phone | + +------+ + | Francois Pascal MD | PCP | | + +------+ + Reason for Visit + +--------+ + | Reason | Onset | Comments | | | Date | | + +--------+ + | Medication Refill | 11/23/ | | | | 2017 | | + +--------+ + Encounter Details +--------+--------+ + + + | Date | Type | Department | Care Team | Description | +--------+--------+ + + + | 11/23/ | Refill | [facility] | Francois Pascal, | Medication Refill | | 2017 | | [facility] | [address] | | | | | [address] | [address] [place], | | | | | [place] | [place] [address] | | | | | [address] | [phone] | | | | | [phone] | | | +--------+--------+ + + + [...] | | | | | | [place] [address] | | | | | | [phone] | | | | | | | | +--------+---------+ + + + documented as of this encounter Visit Diagnoses + + | Diagnosis | + + | Cellulitis and abscess of foot Cellulitis and abscess of foot, except toes | + + documented in this encounter"
--- OUTSIDE RECORDS SUMMARY | ~2019-09-12 | XMS | Encounter Summary ---
Demographics + + + | Address | [address] | | | [place] [address] | + + + | Home Phone [...] + | Author | [facility] | | | and [place] | + + + | Organization | [facility] [...] | | | | | [place] [address] | | + + + + + | Valentín Saleh | ECON | [address] | | | | | [place] [address] | | + + + + + | Roberto Carlos Lennon | LEVI | Unknown | | + + + + + Care Team Providers + +------+ + | Care Application Integration Engineer Name | Role | Phone | [...] | Physical | Diagnoses | Naida, | Sh[place], | | | Services | Therapy | | Francois Tello MD | Nate, PT [address] | | | Required | | Osteoarthrit | [address] | | | | | is of ankle, | [address] | [address] | | | | | left | [facility] | [facility] | | | | | | [facility], [place] | [place], [place] | | | | | | [address] | [address] Phone: | | | | | | Phone: | [phone] | | | | | | [phone] | Fax: | | | | | | Fax: | [phone] | | | | | | [phone] | | +--------+ + + + + + Reason for Visit + + + | Reason | Comments | + + + | Diabetes | | + + + Encounter Details +--------+---------+ + + + | Date | Type | Department | Care Team | Description | +--------+---------+ + + + | 06/18/ | Office | [facility] | Francois Pascal, | HYPERTENSION NEC | | 2014 | Visit | MEDICINE [address] | [address] | (Primary Dx); | | | | [address]VE [place], | [address] [place], | Hyperlipidemia; DM | | | | [place] [address] | [place] [address] | (diabetes mellitus); | | | | [phone] | [phone] | CHRONIC KIDNEY | | | | | | DISEASE STAGE III | | | | | | (MODERATE); | | | | | | OSTEOARTHRITIS, | | | | | | ANKLE, LEFT; | | | | | | Glossitis | +--------+---------+ + + + Social History [...] + + + | Blood Pressure | 146/72 | 06/18/2013 10:34 AM | | | | | PDT | | + + + + + | Pulse | 64 | 06/18/2013 10:34 AM | | | | | PDT | | + + + + + | Temperature | 36.6 C (97.8 F) | 06/18/2013 10:34 AM | | | | | PDT | | + + + + + | Respiratory Rate | 20 | 06/18/2013 10:34 AM | | | | | PDT | | + + + + + | Oxygen Saturation | 95% | 06/18/2013 10:34 AM | | | | | PDT | | + + + + + | Inhaled Oxygen | - | - | | | Concentration | | | | + + + + + | Weight | 76.2 kg (167 lb 14.4 | 06/18/2013 10:34 AM | | | | oz) | PDT | | + + + + + | Height | 162.6 cm (5' 4") | 06/18/2013 10:34 AM | | | | | PDT | | + + + + + | Body Mass Index | 28.82 | 06/18/2013 10:34 AM | | | | | PDT | | + + + + + documented in this encounter Progress Notes Francois Pascal MD - 06/18/2013 11:13 AM PDTFormatting of this note might be different f rom the original. Subjective: Patient ID: Alyson Lennon is a 82 y.o. female. HPI DM2 she is on lantus 110-120 Daily and novolog, 15, 20 and 25, B, L and D. and Januvia (she understands the risk with this). She notices that her glucoses are high occasionally. Rarely as high as 250 prior to a meal. In the morning is runs in the 100-140's She is co mpliant with her medications, she denies polyuria, polydipsia or polyphagia, She admits to having the right diet. novolog 15-19 in am, 20-27 prior to lunch and 30-34 prior to dinn er. She declines further dietary consult. She tries to watch her diet "with every bit she takes". Autoimmune Glossitis, She is on her MTX. She is now back on it. Her mouth is still occa sionally sore. 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 CKD, She urinates normally. There is no [...] several years ago, Still hard to walk. Would like to try py again soon. 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 Social History: Reviewed history from 08/11/2011 and no changes required: Born in [facility] for 46 years. and Remarried 2 sons local. Patient has never smoked. 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 Social History: Reviewed history from 08/11/2011 and no changes required: Born in [facility] for 46 years. and Remarried 2 [...] STAGE III (MODERATE) 5. OSTEOARTHRITIS, ANKLE, LEFT 6. Glossitis Plan: She will increase the Novolog 3 units prior to each meal. She will continue the Januvia. She would like to Try physical therapy. RTC 3 months with HBA1C prior. documented in this encounter Plan of Treatment +--------+---------+ + + + | Date | Type | Specialty | Care Team | Description | +--------+---------+ + + + | 12/06/ | Office | Cardiology | Stephenie Paul, | | | 2019 | Visit | | [address] | | | | | | [place], | | | | | | [place] [address] | | | | | | [phone] | | | | | | | | +--------+---------+ + + + + + +--------+ + + | Name | Type | Priori | Associated Diagnoses | Order Schedule | | | | ty | | | + + +--------+ + + | Ambulatory referral | Outpatient | Routin | OSTEOARTHRITIS, | 1 Occurrences | | to Physical Therapy | Referral | e | ANKLE, LEFT | starting 06/18/2013 | | | | | | until 06/18/2014 | + + +--------+ + + documented as of this encounter Results Hemoglobin A1C (09/14/2013 10:01 AM PDT) + +---------+ + + + | Component | Value | Ref Range | Performed | Pathologist | | | | | At | Signature | + +---------+ + + + | Hemoglobin | 8.1 (H) | 4.3 - 5.8 % | [...] + | [facility] | [address] | [place] | [phone] | | [facility] | | [address] | | | - LABORATORY | | | | + + + + + | [facility] | [address] | [place], [place] | | | [facility] | | [address], [facility] | | | - LABORATORY | | [...] ankle and foot | + + | Glossitis | + + documented in this encounter
--- OUTSIDE RECORDS SUMMARY | ~2019-09-12 | XMS | Encounter Summary ---
Demographics + + + | Address | [address] | | | [place] [address] | + + + | Home Phone | | + + + | Preferred Language | Unknown | + + + | Marital Status | | + + + | Sabianism Affiliation | Unknown | + + + | Race | Unknown | + + + | Ethnic Group | Unknown | + + + Author + + + | Author | [facility] | | | and [place] | + + + | Organization | [facility] | [...] | | | | | [place] [address] | | + + + + + | Valentín Saleh | ECON | [address] | | | | | [place] [address] | | + + + + + | Roberto Carlos Garcia | LEVI | Unknown | | + + + + + Care Team Providers + +------+ + | Care Shells Inspector Name | Role | Phone | [...] | | | [place], [place] | [place] [address] | | | | | | [address] | Phone: | | | | | | Phone: | [phone] | | | | | | [phone] | Fax: | | | | | | Fax: | [phone] | | | | | | [phone] | | +--------+ + + + + + Encounter Details +--------+---------+ + + + | Date | Type | Department | Care Team | Description | +--------+---------+ + + + | 11/30/ | Office | [facility] | Jason Peoples MD | Gingival bleeding | | 2016 | Visit | OTOLARYNGOLOGY [address] | [address] | (Primary Dx) | | | | [address] | [address] | | | | | [place] | [place] [address] | | | | | [address] | [phone] | | | | | [phone] | | | +--------+---------+ + + + [...] MD - 12/01/2015 10:38 AM PDT [facility] OTOLARYNGOLOGY [address] [facility] [address] OFFICE NOTE JASNO PEOPLES MD Patient: ALYSON GARCIA Admitting: MR #: [id number] LOC: PT TYPE: Adm Date: 12/01/2015 : 1930 DATE OF VISIT: 12/01/2015 The patient has had problems with inflammation and irritation in her mouth, she indicates probably for 13 years. She was seen at [facility] and given an injection of cortisone, and [...] PLAN: The patient will get into a correctional supply supervisor by the name of Dr. Mauricio Bello to see i f she can get this resolved. JASON PEOPLES MD Dictated by JASON PEOPLES MD 12/01/2015 10:38:16 Transcribed on 12/02/2015 11:07:00 by mai potts# [id number] Confirmation #: [id number] cc: VENRON YODER MD Jason de jesus MD - 12/01/2015 10:26 AM PDTSee dictation # [id number] signed by Jason Peoples MD at 12/01/2015 10:39 AM PDTdocumented in th is encounter Plan of Treatment +--------+---------+ + + + | Date | Type | Specialty | Care Team | Description | +--------+---------+ + + + | 12/06/ | Office | Cardiology | Stephenie Paul, | | | 2020 | Visit | | MD [address] | | | | | | [address] [place], | | | | | | [place] [address] | | | | | | [phone] | | | | | | | [...]
--- OUTSIDE RECORDS SUMMARY | ~2019-09-12 | XMS | Encounter Summary ---
Demographics + + + | Address | [address] | | | [place] [address] | + + + | Home Phone | | + + + | Preferred Language | Unknown | + + + | Marital Status | | + + + | Anglican Affiliation | Unknown | + + + | Race | Unknown | + + + | Ethnic Group | Unknown | + + + Author + + + | Author | [facility] | | | and [place] | + + + | Organization | [facility] | | | and [place] | + + + | Address | Unknown | + + + | Phone | Unavailable | + + + Support + + + + + | Name | Relationship | Address | Phone | + + + + + | Sigrid Lennon | ECON | [address] | | | | | [place] [address] | | + + + + + | Valentín [place]h | ECON | [address] | | | | | [place] [address] | | + + + + + | Roberto Carlos Lennon | LEVI | Unknown | | + + + + + Care Team Providers + +------+ + | Care Garbage Stoker Name | Role | Phone | + +------+ + | Francois Pascal MD | PCP | | + +------+ + Reason for Visit +---------+--------+ + | Reason | Onset | Comments | | | Date | | +---------+--------+ + | Results | 10/16/ | | | | 2015 | | +---------+--------+ + Encounter Details +--------+ + + + + | Date | Type | Department | Care Team | Description | +--------+ + + + + | 10/16/ | Telephone | [facility] | Francois Pascal, | Results | | 2015 | | MEDICINE [address] | [address] | | | | | [address] [place], | [address] [place], | | | | | [place] [address] | [place] [address] | | | | | [phone] | [phone] | | | | | | | [...] Telephone Encounter - Leanne Johnson RN - 10/17/2015 4:03 PM PDTPatient returned the c all and was given the message below from Dr Pascal. Hemoglobin A1C entered in [facility] ed for 3 month follow up 11/17/15. elephone Encounter - Joy Ken CMA - 10/17/2015 1:41 PM PDTCalled alondra cabrera LM for patient to call back for results elephone Encounter - Joy Ken CMA - 10/17/2015 1:41 PM PDT----- Message from Francois Pascal MD sent a t 10/17/2015 12:37 PDT ----- Ok for ma or nurse to notify pt that there may be slight lab abnormalities but that they do not require follow up prior to next recommended visit but if they would like to discuss the y can rtc earlier. docu mented in this encounter Plan of Treatment +--------+---------+ + + + | Date | Type | Specialty | Care Team | Description | +--------+---------+ + + + | 12/06/ | Office | Cardiology | Stephenie Paul, | | | 2019 | Visit | | [address] | | | | | | [place], | | | | | | [place] [address] | | | | | | [phone] | | | | | | | | +--------+---------+ + + + documented as of this encounter Results Hemoglobin A1C (11/17/2015 10:42 AM PDT) + +---------+ + + + | Component | Value | Ref Range | Performed | Pathologist | | | | | At | Signature | + +---------+ + + + | Hemoglobin | 7.6 (H) | 4.3 - 6.0 % | [facility] | | | A1c | | | . [facility] | | [...] ST. | [address] | [place] | [phone] | | [facility] | | [address] | | | - LABORATORY | | | | + + + + + documented in this encounter Visit Diagnoses + + | Diagnosis | + + | Type II diabetes mellitus with renal manifestations, uncontrolled (HCC) - Primary | | Type II or unspecified type diabetes mellitus with renal manifestations, uncontrolled | + + documented in this encounter"
--- OUTSIDE RECORDS SUMMARY | ~2019-09-12 | XMS | Encounter Summary ---
Demographics + + + | Address | [address] | | | [place] [address] | + + + | Home Phone | | + + + | Preferred Language | Unknown | + + + | Marital Status | | + + + | Anabaptist Affiliation | Unknown | + + + | Race | Unknown | + + + | Ethnic Group | Unknown | + + + Author + + + | Author | [facility] | | | and [place] | + + + | Organization | [facility] | | | [...] | | | | | [place] [address] | | + + + + + | Valentín Saleh | ECON | [address] | | | | | [place] [address] | | + + + + + | Roberto Carlos Lennon | LEVI | [place] | | + + + + + Care Team Providers + +------+ + | Care Recruiting Coordinator Name | Role | Phone | + +------+ + PCP | Unavailable | + +------+ + Encounter Details +--------+ + + + + | Date | Type | Department | Care Team | Description | +--------+ + + + + | 06/24/ | Hospital | [facility] | Francois Pascal, | | | 2009 | Encounter | [facility] CTR LAB[facility]ATORY | [address] | | | | | [address] [place] | [address] [place], | | | | | [place] | [place] [address] | | | | | [address] | [phone] | | | | | [phone] | | | +--------+ + + + [...] | | | | | | [place] [address] | | | | | | [phone] | | | | | | | | +--------+---------+ + + + documented as of this encounter Visit Diagnoses Not on filedocumented in this encounter"
--- OUTSIDE RECORDS SUMMARY | ~2019-09-12 | XMS | Encounter Summary ---
Demographics + + + | Address | [address] | | | [place] [address] | + + + | Home Phone | | + + + | Preferred Language | Unknown | + + + | Marital Status | | + + + | Mandaen Affiliation | Unknown | + + + | Race | Unknown | + + + | Ethnic Group | Unknown | + + + Author + + + | Author | [facility] | | | and Clarkeana | + + + | Organization | [facility] [...] | | | | | [place] [address] | | + + + + + | Valentín Saleh | ECON | [phone] | | | | | [place] [address] | | + + + + + | Roberto Carlos Lennon | LEVI | Unknown | | + + + + + Care Team Providers + +------+ + | Care Marketing Operations Specialist Name | Role | Phone | [...] + + | 07/19/ | Office | [facility] | Francois Pascal, | CHRONIC KIDNEY | | 2017 | Visit | [address] | [address] | DISEASE STAGE III | | | | [address]VE [place], | [address] [place], | (MODERATE) (Primary | | | | [place] [address] | [place] [address] | Dx); Stomatitis; | | | | [phone] | [phone] | Reactive depression | | | | [...] History: 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 Social History: Born in [facility] for 46 years. and Remarried 2 [...] | | | | | | [place] [address] | | | | | | [phone] | | | | | | | [...]
--- OUTSIDE RECORDS SUMMARY | ~2019-09-12 | XMS | Encounter Summary ---
Demographics + + + | Address | [address] | | | [place] [address] | + + + | Home Phone [...] | Author | [facility] | | | and Clarkeana | + + + | Organization | [facility] | | [...] | | | | | [place] [address] | | + + + + + | Valentín Saleh | ECON | [phone] | | | | | [place] [address] | | + + + + + | Roberto Carlos Lennon | LEVI | Unknown | | + + + + + Care Team Providers + +------+ + | Care Claim Adjuster Name | Role | Phone | + +------+ + | Francois Pascal MD | PCP | | + +------+ + Encounter Details +--------+ + + + + | Date | Type | Department | Care Team | Description | +--------+ + + + + | 11/16/ | Hospital | [facility] | Francois Pascal, | 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 | | [address] | | | - LABORATORY | | [...]
--- OUTSIDE RECORDS SUMMARY | ~2019-09-12 | XMS | Encounter Summary ---
Demographics + + + | Address | [address] | | | [place] [address] | + + + | Home Phone [...] [facility] | | | and [place]ana | + + + | Organization | [facility] | | | and [...] | | | | | [place] [address] | | + + + + + | Valentín Saleh | ECON | [phone] | | | | | [place] [address] | | + + + + + | Roberto Carlos Lennon | LEIV | Unknown | | + + + + + Care Team Providers + +------+ + | Care Bath Solution Maker Name | Role | Phone | + [...] Description | +--------+--------+ + + + | 05/25/ | Refill | [facility] [place] [facility] | Francois Pascal, | Medication Refill | | 2016 | | MEDICINE [facility] | [address] | | | | | [address]VE [place], | [address] [place], | | | | | [place] [address] | [place] [address] | | | | | [phone] | [phone] | | | | | | | [...] Telephone Encounter - Airam Menjivar RN - 05/25/2016 2:04 PM PDTCalled patient and farhat blunt states she will try to get over to have labs done for Methotrexate. Electronical ly signed by Airam Menjivar RN at 05/25/2016 2:05 PM PDTdocumented in this encounter Plan of [...] | | | | | | [place] [address] | | | | | | [phone] | | | | | | | | +--------+---------+ + + + documented as of this encounter Visit Diagnoses Not on filedocumented in this encounter"
--- OUTSIDE RECORDS SUMMARY | ~2019-09-12 | XMS | Encounter Summary ---
Demographics + + + | Address | [address] | | | [place] [address] | + + + | Home Phone [...] Author | [facility] | | | and [place]ana | + + + | Organization | [facility] [...] | | | | | [place] [address] | | + + + + + | Valentín Saleh | ECON | [phone] | | | | | [place] [address] | | + + + + + | Roberto Carlos Lennon | LEVI | Unknown | | + + + + + Care Team Providers + +------+ + | Care Past Due Accounts Clerk Name | Role | Phone | + +------+ + | Francois Pascal MD | PCP | | + +------+ + Reason for Visit + +--------+ + | Reason | Onset | Comments | | | Date | | + +--------+ + | Medication Refill | | | + +--------+ + | Medication Refill | 02/23/ | | | | 2019 | | + +--------+ + Encounter Details +--------+--------+ + + + | Date | Type | Department | Care Team | Description | +--------+--------+ + + + | 12/23/ | Refill | [facility] [place] [facility] | Francois Pascal, | Medication Refill; | | 2018 | | MEDICINE [place] | [address] | Medication Refill | | | | [address] | [address] [place], | | | | | [place] | [place] [address] | | | | | [address] | [phone] | | | | | [phone] | | | +--------+--------+ + + + [...] | | | | | | [place] [address] | | | | | | [phone] | | | | | | | | +--------+---------+ + + + documented as of this encounter Visit Diagnoses Not on filedocumented in this encounter"
--- OUTSIDE RECORDS SUMMARY | ~2019-09-12 | XMS | Encounter Summary ---
Demographics + + + | Address | [address] | | | [place] [address] | + + + | Home Phone [...] | Author | [facility] | | | and [place] | + + + | Organization | [facility] | | | and [...] | | | | | [place] [address] | | + + + + + | Valentín Saleh | ECON | [phone] | | | | | [place] [address] | | + + + + + | Roberto Carlos Lennon | LEVI | [place] | | + + + + + Care Team Providers + +------+ + | Care Critical Care Nurse Specialist Name | Role | Phone | + +------+ + PCP | Unavailable | + +------+ + Encounter Details +--------+ + + + + | Date | Type | Department | Care Team | Description | +--------+ + + + + | 01/18/ | Hospital | [facility] | Stephenie Paul, | | | 2002 | Encounter | MED CTR GENERIC OP | MD [address] | | | | | CONV DEPT [address] [place], | | | | | [place], | [place] [address] | | | | | [place] [address] | [phone] | | | | | [phone] | | | +--------+ + + + [...] | | | | | | [place] [address] | | | | | | [phone] | | | | | | | | +--------+---------+ + + + documented as of this encounter Visit Diagnoses Not on filedocumented in this encounter"
--- OUTSIDE RECORDS SUMMARY | ~2019-09-12 | XMS | Encounter Summary ---
Demographics + + + | Address | [address] | | | [place] [address] | + + + | Home Phone | | + + + | Preferred Language | Unknown | + + + | Marital Status | | + + + | Evangelical Affiliation | Unknown | + + + | Race | Unknown | + + + | Ethnic Group | Unknown | + + + Author + + + | Author | [facility] | | | and [place]ana | + + + | Organization | [facility] | | [...] | | | | | [place] [address] | | + + + + + | Valentín Saleh | ECON | [phone] | | | | | [place] [address] | | + + + + + | Roberto Carlos Lennon | LEVI | Unknown | | + + + + + Care Team Providers + +------+ + | Care Therapeutic Massage Technician Name | Role | Phone | [...] | instability | [address] | [place] | | | | n | [address] | [place], | | | | | (ICD-10-CM) | [place] | [place] [address] | | | | | - [address] | [place] | Phone: | | | | | (ICD-9-CM) - | [address] | [phone] | | | | | Gait | Phone: | Fax: | | | | | instability | [phone] | [phone] | | | | | Procedures | Fax: | | | | | | pt eval | [phone] | | +--------+ + + + + + Encounter Details +--------+---------+ + + + | Date | Type | Department | Care Team | Description | +--------+---------+ + + + | 01/13/ | Office | [facility] | Francois Pascal, | Impaired functional | | 2015 | Visit | MED CTR THERAPY PT | MD [address] | mobility, balance, | | | | OP [address] [place] | [address] [place], | gait, and endurance | | | | [place] | [place] [address] | (Primary Dx); | | | | [address] | [phone] | Posture imbalance; | | | | [phone] | | Left ankle pain | | | | | Kely Quinn, PT | | | | | | [address] | | | | | | [place] | | | | | | [address] | | | | | | | [...] encounter Progress Notes Kely Green, PT - 01/13/2015 11:39 AM PSTFormatting of this note might be different from t he original. LOCATED WITHIN [facility] CTR THERAPY PT OP [address] [place] [address] Physical Therapy Daily Treatment Note Date: 01/13/2015 Patient Information Patient Name: Alyson Lennon Date of : 1930 Age: 84 y.o. Encounter Diagnoses Code Name Primary? Z74.09 Impaired functional mobility, balance, gait, and endurance Yes R29.3 Posture imbalance M25.572 Left ankle pain Date of Onset: 10/24/14 Referring Provider: Francois Pascal MD Rehab Precautions Office Visit from 12/24/2014 in LOCATED [facility]IN [facility] CTR THERAPY PT OP Rehab Precautions Precautions Comments fall risk Start Time: 1133 Stop time: 1215 Duration: 42 minutes Timed Treatment Codes: 42 minutes # of PT Visits to Date: 4 Subjective: Pt reports she is a little more sore today in her left ankle; using 4WW today. Pain Assessment Pain Scale Used: NUMERIC Pain Rating Pre Assessment: 5 Pain Rating Post Assessment: 2 Location: left ankle; relates increase to cold weather Objective: Manual Therapy: left ankle grade III-IV mobs to increased DF/PF Exercise/Activity 12/24/14 01/08/15 01/13/15 Left ankle DF/PF 1x10 Left ankle "Alphabet" x DF stretch on incline board 3x30 sec 3x30 sec Rocker board (PF/DF) 4x20 4x20 squats 2x20 2x15 (on incline) Heel raises 2x15 2x20 Gait activities 180 feet x3 Resisted gait; focus on heel-toe 400 feet, 4WW Focus on heel-toe Left ankle ROM DF/PF: post 8-0-15 deg 20-0-10 deg 15-0-15 deg Assessment: pt demonstrated significantly improve gait pattern after manual therapy; able t o take longer step length and improved heel-toe pattern with verbal cues. Pt tolerated all activities well without increase in left ankle pain. Pt would benefit from cont. Therapy to progress left ankle ROM/strength in order to improve gait and dynamic balance to improve saf ety at home and in the community. Next Visit: cont with left ankle manual therapy as indicated, cont. LE strengthening and ba gregorio/gait activities Electronically signed by: Kely Green PT, 01/13/2015 12:18 Patient Name: Alyson Lennon/: 1930/ documented in [...] | | | | | | [place] [address] | | | | | | [phone] | | | | | | | [...]
--- OUTSIDE RECORDS SUMMARY | ~2019-09-12 | XMS | Encounter Summary ---
Demographics + + + | Address | [address] | | | [place] [address] | + + + | Home Phone [...] | Author | [facility] | | | and Clarkeana | + + + | Organization | [facility] | | | and [...] | | | | | [place] [address] | | + + + + + | Valentín Saleh | ECON | [address] | | | | | [place] [address] | | + + + + + | Roberto Carlos Garcia | LEVI | Unknown | | + + + + + Care Team Providers + +------+ + | Care Gas Station Manager Name | Role | Phone | [...] | | | | | | (FORMERLY [facility]) | | | | | | | [...] + + | 07/10/ | Hospital | [facility] | [place], | Intertrochanteric | | 2017 - | Encounter | MED [facility] SUR[facility] | Vernon Marie MD [address] | fracture of left | | | | [address] [place] | [address] [place] | hip, closed, initial | | 07/13/ | | [place] [address] | [place] [address] | encounter (HCC) | | 2017 | | [phone] | [phone] | (Primary Dx); Fall | | | | | | at home, initial | | | | | He Davis MD | encounter; Essential | | | | | [address] | hypertension; | | | | | [place], [place] | Atrial fibrillation, | | | | [...] | | | | | | involving iqugmiut | | | | | | coronary artery of | | | | | | iqugmiut heart without | | | | | [...] Eddy MD - 07/13/2016 12:[address] [facility] DISCHARGE SUMMARY Pt. Name/Age/: Alyson Garcia 85 [...] 7. 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 Specialty: Custodial Facility Contact information: [address] [facility] [address] Soriano for orthopedic [...] stomatitis approx imately 20 years ago at [facility] and was advised they thought this [...] signed by: Josiah Eddy MD, 07/13/2016 12:13 [facility] Portions of this chart may have been created with [employer] voice recognition software. Occasi onal wrong-word or [...] | | 0 | | | | Vsstxqr-Lsumzhrcw-Iw | mouth Daily. | | | | [...] Davis MD - 07/12/2016 3:[address] [facility] HOSPITALIST PROGRESS NOTE Patient: Alyson Garcia : 1930: Age: 85 y.o. MedRec: [id number] PCP: Vernon Yoder MD Admission date: 07/10/2016 [...] New-onset A. 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 Total time of approximately 25 minutes was spent with the patient and/or patient's family, and/or on the patient's floor/unit, of which more than 50% was spent counseling and/or coord ination the patient's care as outlined above. He Davis 07/12/2016 15:51 [facility] Brea Jay RN - 07/12/2016 [...] Aliza Bateman RN - 07/11/2016 5:44 PM [id number] report from Ramakrishna , assumed care of this pt. Pt sitting up in chair with chair alarm inplace. Electronically signed by: Aliza Sanchez RN 07/11/2016 17:46 Shelia Acevedo MD - 07/11/2016 1:[address] [facility] HOSPITALIST PROGRESS NOTE Patient: Alyson Garcia : 1930: Age: 85 y.o. MedRec: [id number] PCP: Vernon Yoder MD Admission date: 07/10/2016 [...] 20 mg 20 mg Oral Daily He Davsi MD 20 mg at 07/11/16 0828 [START [...] injection 0.04 mg 0.04 mg Intravenous PRN Veronn mohan II, MD naloxone (NARCAN) 0.4 mg/mL [...] as outlined above. He Davis 07/11/2016 13:59 [facility] Ru Royal MD - 07/11/2016 11:29 AM [...] office: [x] Pharmacy list names: [facility] [x] [place] SYSTEM DISPATCHER (Prescription Monitoring Program) [x] [employer] insurance reported [...] performed and electronically signed by Jose Myers Final Inspector And Tester 017 13:09 Reviewed by: Michelle Cabrera PHARMD 07/10/2016 13:45 documented in this encounter H&P Notes He Davis MD - 07/10/2016 10:55 AM PDT [facility] HISTORY AND PHYSICAL Pt. 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 MDHLFLC-DWNASHYXS-KXMAJWF D (CALCIUM 500 PO) Take 1 capsule [...] signed by: He Davis MD 07/10/2016 10:55 [facility] documented in this enc ounter Consult Notes Ru Soriano MD - 07/10/2016 10:14 AM PDT [address] [address] CONSULTATION RU SORIANO MD Patient: ALYSON GARCIA Admitting: HE ALONZOOMARI MR #: [id number] LOC: PT TYPE: Adm Date: 07/10/2016 : [...] 07/10/2016 10:14:52 Transcribed on 07/10/2016 10:51:59 by [facility] job# [id number] Confirmation #: [id number] cc: VERNON YODER MD documented in this encounter ED Notes Em Melendez, DEISY - 07/10/2016 1:11 PM PDTDr. Ring took pt to OR. Personal belongi ngs with pt. Vernon Velasco MD - 07/10/2016 8:40 AM PDTFormatting of this note might be different fro m the original. 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 AZSZCJH-JBQBAWMNN-NIOWNHI D (CALCIUM 500 PO) Take 1 capsule [...] Other (see comment) Other family history of [place]'s Disease Heart disease Sister Kidney disease Neg Hx Social History Social History Marital Status: Spouse Name: Sigrid Number of Children: 2 Years of Education: N/A Occupational History Social History Main Topics Smoking status: Never Smoker Smokeless tobacco: Never Used Alcohol Use: No Drug Use: No Sexual Activity: Not Asked Other Topics Concern None Social History Narrative Born in [facility] for [facility] years. and Remarried [...] were reviewed along with EMS notes and FDC record s if applicable. (See chart for [...] fracture of left hip, closed, initial encounter ([facility]) S72.142A 820.21 2. Fall at home, initial [...] Portions of this chart were created with [employer] voice recognition software. Inadvertent so und alike [...] Pushed Discharge information to Renee Giang through [facility]. SNF packet complete. 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 Staff and family notified. Electronically signed by: Carisa Tubbs 07/13/2016 14:15 NF Transfer - Jackie Eddy MD - 07/13/2016 12:04 PM PDTFormatting of this note might be different from the [facility] RESIDENTIAL FACILITY TRANSFER ORDERS Patient Name: Alyson Garcia [...] If patient is pulseless and not breathing, RN/DIGITAL DATA ANALYST may pronounce . Advanced Directives included: [] [...] fracture of left hip, closed, initial encounter ([facility]) Patient Active Problem List Diagnosis CAROTID STENOSIS AMAUROSIS FUGAX DEMYELINATING DISEASE, CENTRAL NERVOUS SYSTEM FRACTURE, ANKLE, LEFT Gout, unspecified OSTEOARTHRITIS, ANKLE, LEFT FATIGUE VIRAL URI HYPERTRIGLYCERIDEMIA VITAMIN D DEFICIENCY Hypertension, renal disease DM type 2, uncontrolled, with renal complications Glossitis Coronary artery disease involving iqugmiut coronary artery of iqugmiut heart without angina pectoris Hyperlipidemia, mixed AMI [...] DOSE (ADULT) 11/18/2005 Diet: [] As tolerated WATER CONTROL STATION ENGINEER may upgrade or downgrade diet as condition [...] [x] OT Evaluation & Management for: [] WATER CONTROL STATION ENGINEER Evaluation &Management for: [] Other: Wound/Skin Care: [...] Josiah Eddy MD, certify that post hospital intermediate care is medically necessa ry on a continuing basis for any of the conditions for which he/she received care during thi s hospitalization. Check one: [x] Skilled [] Intermediate Additional Orders/Instructions: Physician's signature: 07/13/2016 12:04 [facility] USE ONLY: [] Admitting orders [...] Therapy Discharge Recommendations are: Recommended discharge disposition: intermediate facility Post discharge occupational therapy recommendation: ongoing low intensity therapy, will be nefit from structured setting, family involved/supportive Equipment Recommendations: none Planned Interventions:ADL retraining, transfer training, bed mobility training Recommended Frequency: 4 times/wk Patient Status/Goals: Reflects last filed data and may be from multiple contributors. ADLs Pt required max A to reach modified seated EOB position. Once EOB, pt required set up jeronimo t to groom in supported seat EOB. Bathing, Level of Call[place]: verbal cues required, maximal assist (25% patient effort), supervised, stand by assist Assistive Device: none Bathing Assess/Train, Position: supported sitting Bathing Assess/Train, Impairments: pain, strength decreased (Cognitive deficits) Groomed sitting up in chair, LLE propped on pillows. Requires redirection throughout. Hus band assisted in applying toothpaste on toothbrush. Grooming, Level of [place]: minimal assist (75% patient effort), verbal cues required Bed Mobility Pt w/ increased pain during bed mobility and extreme difficulty mobilizing to EOB. Pt requi red max A x 2 and HOB raised to reach modified seated position EOB. Assistive Device: bed rails Supine to Sit, Level of [place]: 2 person assist required, dependent ( less [...] Status not addressed at 07/13/2016 1150 STG Call[place] Level minimum assist (75% patient effort) at 07/13/2016 1150 STG Adaptive Equipment none at 07/13/2016 1150 Toilet Transfer Goal Most Recent Value STG Status not addressed at 07/13/2016 1150 STG [place] Level contact guard assist at 07/13/2016 1150 STG Assistive Device 2 wheeled walker (FWW) at 07/13/2016 1150 Tub/Shower Transfer Goal Most Recent Value Tub/Shower Type walk in shower stall at 07/13/2016 1150 STG Status not addressed at 07/13/2016 1150 STG Call[place] Level contact guard assist at 07/13/2016 1150 [...] y. Left hip pain, pt tolerates 1 [place]. CMS intact. Pt is heavy transfer, requires roberta Duggan in place. anticipate D/C to [facility] today. Pt unsure of last BM, meds [...] movement, oxycodone ma de pt sleepy, use [place] and straight tylenol - pt tolerated well, [...] Therapy Discharge Recommendations are: Recommended discharge disposition: intermediate facility Post discharge physical therapy recommendation: will [...] difficulty maintaining wt bearing. Bed-Chair, Level of Call[place]: moderate assist (50% patient effort), 2 person assist req uired Chair-Bed, Level of Call[place]: (NT as pt was left seated in recliner) Xqk-Dtsoa-Vxf, Assistive Device: 2 wheeled walker (FWW) Sit-Stand, Level of [place]: moderate assist (50% patient effort), 2 person assist req uired, verbal cues required Stand-Sit, Level of [place]: 2 person assist required, minimal assist (75% patient eff ort), verbal cues required Shs-Xtewz-Wfz, Assistive Device: 2 wheeled walker (FWW) Maintain Weight Bearing Status: assist to maintain weight bearing status Safety Issues: balance decreased during turns, sequencing ability decreased Impairments: motor control impaired, coordination impaired, impaired balance, strength decr eased, pain Bed Mobility Pt w/ increased pain and increased difficulty mobilizing in bed Assistive Device: bed rails Supine to Sit, Level of [place]: maximal assist (25% patient effort), 2 person assist required Sit to Supine, Level of Call[place]: (NT as pt was left seated in [...] STG Review Date 07/16/16 at 07/11/2016 1007 Reyxgb-Ukp-Iemwak Goal Most Recent Value STG Status continued/progressing at 07/12/2016 1421 STG Callaway Level independent at 07/11/2016 1007 STG Assistive Device none at 07/11/2016 1007 Zpe-Tmrqf-Csp Goal Most Recent Value STG Status continued/progressing at 07/12/2016 1421 STG Call[place] Level contact guard assist at 07/11/2016 1007 STG Assistive Device 2 wheeled walker (FWW) at 07/11/2016 1007 Zni-Jeruz-Voj Goal Most Recent Value STG Status continued/progressing at 07/12/2016 1421 STG Call[place] Level contact guard assist at 07/11/2016 1007 STG Assistive Device 2 wheeled walker (FWW) at 07/11/2016 1007 Gait Goal Most Recent Value STG Status continued/progressing at 07/12/2016 1421 STG [place] Level contact guard assist at 07/11/2016 1007 [...] ng Medicare coverage for the Rehab facility ([facility]) They would like to see Alyson [...] PCP is Dr. Yoder and she uses [facility]. She states she will need a SNF rehab stay and she only chooses [facility]. Facility preference form signed and placed in ghost chart. SNF referral sent to [facility] via [employer]. to continue to follow. Electronically signed by: Rena Aguilar RN 07/11/2016 12:19 Received call from Zewditu at [facility], she states they can accept Ms. Garcia when she is medically stable for discharge. Electronically signed by: Rena Aguilar RN 07/11/2016 13:22 [facility] [place] - Helena Motta OT - 07/11/2016 12:10 PM PDT [...] Therapy Discharge Recommendations are: Recommended discharge disposition: intermediate facility Post discharge occupational therapy recommendation: family [...] off electrodes on abdomen. Bathing, Level of [place]: moderate assist (50% patient effort), verbal cues required Assistive Device: none Bathing Assess/Train, Position: supported sitting Bathing Assess/Train, Impairments: pain, strength decreased (Cognitive deficits) Groomed sitting up in chair, LLE propped on pillows. Requires redirection throughout. Hus band assisted in applying toothpaste on toothbrush. Grooming, Level of Call[place]: minimal assist (75% patient effort), verbal cues [...] STG Status new at 07/11/2016 1504 STG Call[place] Level minimum assist (75% patient effort) at 07/11/2016 1504 STG Adaptive Equipment none at 07/11/2016 1504 Toilet Transfer Goal Most Recent Value STG Status new at 07/11/2016 1504 STG [place] Level contact guard assist at 07/11/2016 1504 STG Assistive Device 2 wheeled walker (FWW) at 07/11/2016 1504 Tub/Shower Transfer Goal Most Recent Value Tub/Shower Type walk in shower stall at 07/11/2016 1504 STG Status new at 07/11/2016 1504 STG Call[place] Level contact guard assist at 07/11/2016 1504 STG Assistive Device 2 wheeled walker (FWW), shower chair at 07/11/2016 1504 Electronically signed by: Helena Motta OT, 07/11/2016 15:11 nesthesia Pain Man sohail - Vernon Ring II, MD - 07/11/2016 11:46 [facility]-Up Pain level: 2 The [...] and mgmt of TDWB Bed-Chair, Level of Callaway: maximal assist (25% patient effort), 2 person assist requ ired, verbal cues required Chair-Bed, Level of Callaway: (NT as pt was left seated in recliner) Wjc-Tgeym-Fql, Assistive Device: 2 wheeled walker (FWW) Sit-Stand, Level of Call[place]: moderate assist (50% patient effort), 2 person assist req uired, verbal cues required Stand-Sit, Level of Call[place]: 2 person assist required, minimal assist (75% patient eff ort), verbal cues required Dio-Bcpld-Rdl, Assistive Device: 2 wheeled walker (FWW) Safety Issues: balance decreased during turns, sequencing ability decreased Impairments: motor control impaired, coordination impaired, impaired balance, strength decr eased, pain Bed Mobility Assist w/ LLE and trunk, cuing for sequencing Assistive Device: bed rails Supine to Sit, Level of Call[place]: moderate assist (50% patient effort), verbal cues req uired Sit to Supine, Level of Call[place]: (NT as pt was left seated in [...] STG Review Date 07/16/16 at 07/11/2016 1007 Xnncqp-Zqh-Oqanlz Goal Most Recent Value STG Status new at 07/11/2016 1007 STG Call[place] Level independent at 07/11/2016 1007 STG Assistive Device none at 07/11/2016 1007 Rnq-Opilu-Opx Goal Most Recent Value STG Status new at 07/11/2016 1007 STG [place] Level contact guard assist at 07/11/2016 1007 STG Assistive Device 2 wheeled walker (FWW) at 07/11/2016 1007 Jrx-Zrcxy-Gdx Goal Most Recent Value STG Status new at 07/11/2016 1007 STG [place] Level contact guard assist at 07/11/2016 1007 STG Assistive Device 2 wheeled walker (FWW) at 07/11/2016 1007 Gait Goal Most Recent Value STG Status new at 07/11/2016 1007 STG [place] Level contact guard assist at 07/11/2016 1007 [...] ice chips sporadically. p Note - Raheem Soriano MD - 07/10/2016 2:47 [facility] Pt. Name/Age/: Alyson Garcia 85 y.o. 1930 Med. Record Number: [id number] Date of admission: 07/10/2016 Date of Operation/Procedure: 07/10/2016 Preoperative Diagnosis: 1. Intertrochanteric fracture left hip Postoperative Diagnosis: 1. Same Surgeon: Ru Soriano MD Forestry Adviser: Jose MOONEY Anesthesia Provider(s): Anesthesiologist: Vernon Ring [...] PDTPatient brought in by EMS, ground level [facility] l, L hip pain, shortening and rotation [...] [place], | | | | | | [place] [address] | | | | | | [phone] | | | | | | | [...] [address] | [place] | [phone] | | [facility] | | [address] | | | - LABORATORY | | [...] + | [facility] | [address] | [place] | [phone] | | [facility] | | [address] | | | - LABORATORY | | [...] | mL/min/1.73m2 | [facility] | | | ERITREAN | RATE,ESTIMATED | | MEDICAL | | | | mL/min/1.71x0Grgx than | | CENTER - | | [...] | | ine Ratio | | | [facility] | | | | | [...] [address] | [place] | [phone] | | [facility] | | [address] | | | - LABORATORY | | [...] [address] | [place] | [phone] | | [facility] | | [address] | | | - LABORATORY | | [...] [address] | [place] | [phone] | | [facility] | | [address] | | | - LABORATORY | | [...] ST. | [address] | [place], [place] | [phone] | | [facility] | | [address] | | | - LABORATORY | | [...] | | | | LUCINA ALAMO, ROSALBA ([id number]) | | | | | | on [...] | 1.25 | 0.60 - 1.30 | [facility] | | | | | mg/dL | [...] mL/min/1.73m2 | [facility] | | | ERITREAN | RATE,ESTIMATED | | MEDICAL | | | | mL/min/1.38b2Sogv than | | CENTER - | | [...] ST. | [address] | [place], [place] | [phone] | | [facility] | | [address] | | | - LABORATORY | | [...] [address] | [place] | [phone] | | [facility] | | [address] | | | - LABORATORY | | [...] + | [facility] | [address] | [place] | [phone] | | [facility] | | [address] | | | - LABORATORY | | [...] + | [facility] | [address] | [place] | [phone] | | [facility] | | [address] | | | - LABORATORY | | [...] [address] | [place] | [phone] | | [facility] | | [address] | | | - LABORATORY | | [...] + | [facility] | [address] | [place] | [phone] | | [facility] | | [address] | | | - LABORATORY | | [...] [address] | [place] | [phone] | | [facility] | | [address] | | | - LABORATORY | | [...] | MPV | 9.3 | fL | MARSIELA | | | | | | STVa [...] [address] | [place] | [phone] | | [facility] | | [address] | | | - LABORATORY | | [...] (H) | 7 - 18 mg/dL | [facility] | | | | | | ST. [...] | GLOMERULAR FILTRATION | mL/min/1.73m2 | [facility] | | | ERITREAN | RATE,ESTIMATED | | MEDICAL | | | | mL/min/1.61a4Nwgg than | | CENTER - | | [...] [address] | [place] | [phone] | | [facility] | | [address] | | | - LABORATORY | | [...] ST. | [address] | [place] | [phone] | | [facility] | | [address] | | | - LABORATORY | | [...] [address] | [place] | [phone] | | [facility] | | [address] | | | - LABORATORY | | [...] - 1.030 | [facility] | | | [place], | | | [facility] | | [...] ST. | [address] | [place], [place] | [phone] | | [facility] | | [address] | | | - LABORATORY | | [...] [place] | | | [facility] | | [address] | | | - BLOOD BANK | [...] [address] | [place] | [phone] | | [facility] | | [address] | | | - LABORATORY | | [...] [address] | [place] | [phone] | | [facility] | | [address] | | | - LABORATORY | | [...] ST. | [address] | [place] | [phone] | | [facility] | | [address] | | | - LABORATORY | | [...] not | 49 (L)Comment: | >=60 | [facility] | | | | GLOMERULAR FILTRATION | mL/min/1.73m2 | [facility] | | | ERITREAN | RATE,ESTIMATED | | MEDICAL | | | | mL/min/1.88h3Rsto than | | CENTER - | | [...] [address] | [place] | [phone] | | [facility] | | [address] | | | - LABORATORY | | [...] ST. | 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
--- OUTSIDE RECORDS SUMMARY | ~2019-09-12 | XMS | Encounter Summary ---
Demographics + + + | Address | [address] | | | [place] [address] | + + + | Home Phone [...] | Author | [facility] | | | and [place] | + + + | Organization | [facility] | [...] | | | | | [place] [address] | | + + + + + | Valentín Saleh | ECON | [address] | | | | | [place] [address] | | + + + + + | Roberto Carlos Lennon | LEVI | Unknown | | + + + + + Care Team Providers + +------+ + | Care Area Director Name | Role | Phone | + +------+ + | Francois Pascal MD | PCP | | + +------+ + Reason for Visit + +--------+ + | Reason | Onset | Comments | | | Date | | + +--------+ + | Blood Pressure | 10/12/ | | | | 2016 | | + +--------+ + Encounter Details +--------+ + + + + | Date | Type | Department | Care Team | Description | +--------+ + + + + | 10/12/ | Telephone | [facility] | [place], | Blood Pressure | | 2016 | | NEPHROLOGY [address] | [address] | | | | | [facility] [address] | [address] [facility] | | | | | [place], [place] | [address] | | | | | [address] | [address] | | | | | [phone] | | | +--------+ + + + [...] this encounter Miscellaneous Notes Telephone Encounter - Kemar Herndon ARNP - 10/12/2016 2:01 PM PDTBlood pressure was low normal in clinic one week ago. Blood pressure reviewed and blood pressure has not be en low since then; 117-158/60s. No change to medications. Electronically signed by LAURO Reaves at 2:17 PM PDTdocumented in this encounter Plan of [...] | | | | | | [place] [address] | | | | | | [phone] | | | | | | | | +--------+---------+ + + + documented as of this encounter Visit Diagnoses Not on filedocumented in this encounter"
--- OUTSIDE RECORDS SUMMARY | ~2019-09-12 | XMS | Encounter Summary ---
Demographics + + + | Address | [address] | | | [place] [address] | + + + | Home Phone | | + + + | Preferred Language | Unknown | + + + | Marital Status | | + + + | Hindu Affiliation | Unknown | + + + | Race | Unknown | + + + | Ethnic Group | Unknown | + + + Author + + + | Author | [facility] | | | and [place] | + + + | Organization | [facility] | | [...] | | | | | [place] [address] | | + + + + + | Valentín Saleh | ECON | [phone] | | | | | [place] [address] | | + + + + + | Roberto Carlos Lennon | LEVI | Unknown | | + + + + + Care Team Providers + +------+ + | Care Try Out Person Name | Role | Phone | [...] Description | +--------+--------+ + + + | 09/04/ | Refill | [facility] | Francois Pascal, | Medication Refill | | 2012 | | [facility] | [address] | | | | | [address] | [address], | | | | | [place] | [place] [address] | | | | | [address] | [phone] | | | | | [phone] | | | +--------+--------+ + + + [...] Telephone Encounter - Airam Menjivar RN - 09/12/2012 10:24 AM PDTPatient had labs done yesterday. Dr to check lab results before patient takes the Methotrexate. Patient notified not to take until Dr advises. elephone Encounte r - Airam Menjivar RN - 09/04/2012 4:54 PM PDTCalled patient and requested that she hope ve labs done prior to getting Methotrexate refill. Put phone down, Patient will have the l abs done first of next week. documented in this encounter Plan of Treatment +--------+---------+ + + + | Date | Type | Specialty | Care Team | Description | +--------+---------+ + + + | 12/06/ | Office | Cardiology | Stephenie Paul, | | | 2019 | Visit | | MD Bob Sheehan | | | | | | [place], | | | | | | [place] [address] | | | | | | [phone] | | | | | | | | +--------+---------+ + + + documented as of this encounter Visit Diagnoses Not on filedocumented in this encounter"
--- OUTSIDE RECORDS SUMMARY | ~2019-09-12 | XMS | Encounter Summary ---
Demographics + + + | Address | [address] | | | [place] [address] | + + + | Home Phone [...] + | Author | [facility] | | | and [place] | + + + | Organization | [facility] | | [...] | | | | | [place] [address] | | + + + + + | Valentín Saleh | ECON | [address] | | | | | [place] [address] | | + + + + + | Roberto Carlos Lennon | LEVI | [place] | | + + + + + Care Team Providers + +------+ + | Care Zmt Operator Name | Role | Phone | + +------+ + PCP | Unavailable | + +------+ + Encounter Details +--------+ + + + + | Date | Type | Department | Care Team | Description | +--------+ + + + + | 11/03/ | Hospital | [facility] | | | | 1999 | Encounter | MED CTR LABORATORY | | | | | | [address] [place] | | | | | | [place] | | | | | | [address] | | | | | | [phone] | | | +--------+ + + + [...] | | | | | | [place] [address] | | | | | | [phone] | | | | | | | | +--------+---------+ + + + documented as of this encounter Visit Diagnoses Not on filedocumented in this encounter"
--- OUTSIDE RECORDS SUMMARY | ~2019-09-12 | XMS | Encounter Summary ---
Demographics + + + | Address | [address] | | | [place] [address] | + + + | Home Phone [...] + | Author | [facility] | | | and [place] | + + + | Organization | [facility] [...] | | | | | [place] [address] | | + + + + + | Valentín Saleh | ECON | [phone] | | | | | [place] [address] | | + + + + + | Roberto Carlos Lennon | LEVI | Unknown | | + + + + + Care Team Providers + +------+ + | Care Surveyor Rod Helper Name | Role | Phone | [...] + + | 08/03/ | Office | 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 female. HPI Left hip fracture, S/p fall / with rodding per Dr Barbosa. She has [...] and 2 brothers: CAD, Airam's Disease to Ro[place] - with 2 Healthy Children No kidney disease in family. Social History: Born in [facility] for 46 years. and Remarried [...] | 2019 | Visit | | [address] | | | | | | [place], | | | | | | [place] [address] | | | | | | [phone] | | | | | | | [...]
--- OUTSIDE RECORDS SUMMARY | ~2019-09-12 | XMS | Encounter Summary ---
Demographics + + + | Address | [address] | | | [place] [address] | + + + | Home Phone [...] | Author | [facility] | | | and [place] | + + + | Organization | [facility] | | | and [...] | | | | | [place] [address] | | + + + + + | Valentín Saleh | ECON | [address] | | | | | [place] [address] | | + + + + + | Roberto Carlos Lennon | LEVI | Unknown | | + + + + + Care Team Providers + +------+ + | Care Blow Torch Burner Name | Role | Phone | + +------+ + | Francois Pascal MD | PCP | | + +------+ + Encounter Details +--------+---------+ + + + | Date | Type | Department | Care Team | Description | +--------+---------+ + + + | 12/26/ | Office | [facility] | Francois Pascal, | Glossitis (Primary | | 2012 | Visit | MEDICINE [facility] | [address] | Dx) | | | | [address] | [address], | | | | | [place] | [place] [address] | | | | | [address] | [phone] | | | | | [phone] | | | +--------+---------+ + + + [...] to her liver. Dr Solo was her electronic device repairer at [facility] for this. It gets very irritated on [...] | Visit | | MD Bob Vasquez [place] | | | | | | [place], | | | | | | [place] [address] | | | | | | [phone] | | | | | | | | +--------+---------+ + + + documented as of this encounter Visit Diagnoses + + | Diagnosis | + + | Glossitis - Primary | + + documented in this encounter
--- OUTSIDE RECORDS SUMMARY | ~2019-09-12 | XMS | Encounter Summary ---
Demographics + + + | Address | [address] | | | [place] [address] | + + + | Home Phone [...] | [facility] | | | and [place] | + + + | Organization | [facility] | | [...] | | | | | [place] [address] | | + + + + + | Valentín Saleh | ECON | [phone] | | | | | [place] [address] | | + + + + + | Roberto Carlos Lennon | LEVI | Unknown | | + + + + + Care Team Providers + +------+ + | Care Practice Nurse Name | Role | Phone | + [...] Refill | | 2018 | | [facility] | [address] | | | | | [address] | [address], | | | | | [place] | [place] [address] | | | | | [address] | [phone] | | | | | [phone] | | | +--------+--------+ + + + [...] 2019 | Visit | | MD Rojas Ovalo Varney | | | | | | [place], | | | | | | [place] [address] | | | | | | [phone] | | | | | | | [...]
--- OUTSIDE RECORDS SUMMARY | ~2019-09-12 | XMS | Encounter Summary ---
Demographics + + + | Address | [address] | | | [place] [address] | + + + | Home Phone [...] | Author | [facility] | | | and [place] | + + + | Organization | [facility] | | | and [place] | + + + | Address | Unknown | + + + | Phone | Unavailable | + + + Support + + + + + | Name | Relationship | Address | Phone | + + + + + | Sigrid Lennon | ECON | [address] | | | | | [place] [address] | | + + + + + | Valentín Saleh | ECON | [address] | | | | | [place] [address] | | + + + + + | Roberto Carlos Lennon | LEVI | [place] | | + + + + + Care Team Providers + +------+ + | Care Geographic Information Scientist Name | Role | Phone | + +------+ + PCP | Unavailable | + +------+ + Encounter Details +--------+ + + + + | Date | Type | Department | Care Team | Description | +--------+ + + + + | 01/21/ | Hospital | [facility] | | | | 2002 | Encounter | MED CTR LABORATORY | | | | | | [address] | | | | | | [place] | | | | | | [address] | | | | | | [phone] | | | +--------+ + + + [...] | | | | | | [place] [address] | | | | | | [phone] | | | | | | | | +--------+---------+ + + + documented as of this encounter Visit Diagnoses Not on filedocumented in this encounter"
--- OUTSIDE RECORDS SUMMARY | ~2019-09-12 | XMS | Encounter Summary ---
Demographics + + + | Address | [address] | | | [place] [address] | + + + | Home Phone [...] Author | [facility] | | | and [place] | + + + | Organization | [facility] | | | and [...] | | | | | [place] [address] | | + + + + + | Valentín Saleh | ECON | [address] | | | | | [place] [address] | | + + + + + | Roberto Carlos Lennon | LEVI | Unknown | | + + + + + Care Team Providers + +------+ + | Care Wordpress Developer Name | Role | Phone | [...] Description | +--------+---------+ + + + | 08/10/ | Office | [facility] | Francois Pascal, | Diabetes mellitus | | 2016 | Visit | MEDICINE [address] | [address] | due to underlying | | | | [address], | [address], | condition with | | | | [place] [address] | [place] [address] | hyperglycemia (HCC) | | | | [phone] | [phone] | (Primary Dx); Other | | | | | | secondary | | | | | | osteoarthritis of | | | | | | left ankle; Diabetes | | | | | | mellitus due to | | | | | | underlying condition | | | | | | with stage 3 | | | | | | chronic kidney | | | | | | disease (HCC) | +--------+---------+ + + + Social [...] + + + | Blood Pressure | 120/60 | 08/11/2015 11:29 AM | | | | | PDT | | + + + + + | Pulse | 75 | 08/11/2015 11:29 AM | | | | | PDT | | + + + + + | Temperature | 36.2 C (97.2 F) | 08/11/2015 11:29 AM | | | | | PDT | | + + + + + | Respiratory Rate | 16 | 08/11/2015 11:29 AM | | | | | PDT | | + + + + + | Oxygen Saturation | 98% | 08/11/2015 11:29 AM | | | | | PDT | | + + + + + | Inhaled Oxygen | - | - | | | Concentration | | | | + + + + + | Weight | 70.8 kg (156 lb) | 08/11/2015 11:29 AM | | | | | PDT | | + + + + + | Height | 162.6 cm (5' 4") | 08/11/2015 11:29 AM | | | | | PDT | | + + + + + | Body Mass Index | 26.78 | 08/11/2015 11:29 AM | | | | | PDT | | + + + + + documented in this encounter Progress Notes Francois Pascal MD - 08/11/2015 12:02 PM PDTFormatting of this note might be different f rom the original. Subjective: Patient ID: Alyson Lennon is a 84 y.o. female. HPI Chronic L ankle OA, Followed by Dr Valero with recent injection, There is no improvement, She would like to consider a joint replacement. Dm2, she was off her diet a little. She is back on this,. She has almost eliminated potat oes, bread, rice, pasta. She does not eat much desserts. Lantus 120 QHS, novolog 33 Review of Systems Objective: Physical Exam Left ankle in support. Assessment: 1. Diabetes mellitus due to underlying condition with hyperglycemia (HCC) insulin aspart ( NOVOLOG) 100 units/mL injection 2. Other secondary osteoarthritis of left ankle 3. 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 I will talk with Dr Valero about her ankle. RTC 3 months prior. documented in this encounter Plan of Treatment +--------+---------+ + + + | Date | Type | Specialty | Care Team | Description | +--------+---------+ + + + | 12/06/ | Office | Cardiology | Stephenie Paul, | | | 2019 | Visit | | MD Rojas [facility] | | | | | | 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
--- OUTSIDE RECORDS SUMMARY | ~2019-09-12 | XMS | Encounter Summary ---
Demographics + + + | Address | [address] | | | [place] [address] | + + + | Home Phone | | + + + | Preferred Language | Unknown | + + + | Marital Status | | + + + | Christian Affiliation | Unknown | + + + | Race | Unknown | + + + | Ethnic Group | Unknown | + + + Author + + + | Author | [facility] | | | and [place] | + + + | Organization | [facility] [...] | | | | | [place] [address] | | + + + + + | Valentín Saleh | ECON | [address] | | | | | [place] [address] | | + + + + + | Roberto Carlos Lennon | LEVI | Unknown | | + + + + + Care Team Providers + +------+ + | Care Primary Care Pediatrician Name | Role | Phone | + +------+ + | Francois Pascal MD | PCP | | + +------+ + Reason for Visit +---------+--------+ + | Reason | Onset | Comments | | | Date | | +---------+--------+ + | Results | 05/28/ | | | | 2016 | | +---------+--------+ + Encounter Details +--------+ + + + + | Date | Type | Department | Care Team | Description | +--------+ + + + + | 05/28/ | Telephone | [facility] | Francois Pascal, | Results | | 2016 | | MEDICINE [address] | [address] | | | | | [address] [place], | [address], | | | | | [place] [address] | [place] [address] | | | | | [phone] | [phone] | | | | | | | [...] Telephone Encounter - Leanne Johnson RN - 05/28/2016 1:45 PM PDTSpoke with patient and gave her the message below. Scheduled to see Dr Pascal 06/03/16 at 0900.Electronically sig marycruz by Leanne Johnson RN at 05/28/2016 1:52 PM PDTTelephone Encounter - Padmini Johnson RN - 05/28/2016 1:43 PM PDT----- Message from Francois Pascal MD sent at 05/28/2016 12: 10 PDT ----- Ok for ma to notify patient that he has somewhat abnormal labs and would like to discuss wi thin a month. dokrishan armos in this encounter Plan of Treatment +--------+---------+ + + + | Date | Type | Specialty | Care Team | Description | +--------+---------+ + + + | 12/06/ | Office | Cardiology | Stephenie Paul, | | | 2019 | Visit | | MD Bob Sheehan | | | | | | [place], | | | | | | [place] [address] | | | | | | [phone] | | | | | | | | +--------+---------+ + + + documented as of this encounter Visit Diagnoses Not on filedocumented in this encounter"
--- OUTSIDE RECORDS SUMMARY | ~2019-09-12 | XMS | Encounter Summary ---
Demographics + + + | Address | [address] | | | [place] [address] | + + + | Home Phone | | + + + | Preferred Language | Unknown | + + + | Marital Status | | + + + | Shinto Affiliation | Unknown | + + + | Race | Unknown | + + + | Ethnic Group | Unknown | + + + Author + + + | Author | [facility] | | | and [place] | + + + | Organization | [facility] | | | and [place] | + + + | Address | Unknown | + + + | Phone | Unavailable | + + + Support + + + + + | Name | Relationship | Address | Phone | + + + + + | Sigrid Lennon | ECON | [address] | | | | | [place] [address] | | + + + + + | Valentín Saleh | ECON | [phone] | | | | | [place] [address] | | + + + + + | Roberto Carlos Lennon | LEVI | Unknown | | + + + + + Care Team Providers + +------+ + | Care Group Sales Coordinator Name | Role | Phone | + +------+ + | Francois Pascal MD | PCP | | + +------+ + Encounter Details +--------+ + + + + | Date | Type | Department | Care Team | Description | +--------+ + + + + | 06/03/ | Hospital | [facility] | [place], | CHRONIC KIDNEY | | 2015 | Encounter | MED CTR LABORATORY | [address] | DISEASE STAGE III | | | | [address] [place] | [address] [facility] [facility] | (MODERATE); | | | | [place], [place] | [address] [place], [place] | HYPERTENSION NEC; | | | | [address] | [address] | Type 2 diabetes | | | | [phone] | | mellitus with | | | [...] | | | | | | [place] [address] | | | | | | [phone] | | | | | | | [...] + | [facility] | [address] | [place] | [phone] | | [facility] | | [address] | | | - LABORATORY | | [...] [address] | [place] | [phone] | | [facility] | | [address] | | | - LABORATORY | | [...] mL/min/1.73m2 | [facility] | | | G[facility] | RATE,ESTIMATED | | MEDICAL | | | | mL/min/1.19q7Ooff than | | CENTER - | | [...] + | [facility] | [address] | [place] | [phone] | | [facility] | | [address] | | | - LABORATORY | | [...]
--- OUTSIDE RECORDS SUMMARY | ~2019-09-12 | XMS | Encounter Summary ---
Demographics + + + | Address | [address] | | | [place] [address] | + + + | Home Phone [...] Author | [facility] | | | and [place] | + + + | Organization | [facility] | | [...] | | | | | [place] [address] | | + + + + + | Valentín Saleh | ECON | [address] | | | | | [place] [address] | | + + + + + | Roberto Carlos Lennon | LEVI | Unknown | | + + + + + Care Team Providers + +------+ + | Care Screen Maker Name | Role | Phone | + +------+ + | Francois Pascal MD | PCP | | + +------+ + Reason for Visit +--------+--------+ + | Reason | Onset | Comments | | | Date | | +--------+--------+ + | LABS | 11/14/ | | | | 2012 | | +--------+--------+ + Encounter Details +--------+ + + + + | Date | Type | Department | Care Team | Description | +--------+ + + + + | 11/14/ | Telephone | [facility] | Francois Pascal, | LABS | | 2012 | | MEDICINE [address] [place] [address] | [address] | | | | | [address] [place], | [address], | | | | | [place] [address] | [place] [address] | | | | | [phone] | [phone] | | | | | | | [...] this encounter Miscellaneous Notes Telephone Encounter - Nalini Hollins RN - 11/14/2012 9:32 AM PDTReceived call from todd cifuentes regarding labs. Instructed patient to get CBC and CMP drawn so that her methotrexate ca n be filled. document ed in this encounter Plan of Treatment +--------+---------+ + + + | Date | Type | Specialty | Care Team | Description | +--------+---------+ + + + | 12/06/ | Office | Cardiology | Stephenie Paul, | | | 2019 | Visit | | MD Bob Sheehan | | | | | | [place], | | | | | | [place] [id number] | | | | | | [phone] | | | | | | | | +--------+---------+ + + + documented as of this encounter Visit Diagnoses Not on filedocumented in this encounter"
--- OUTSIDE RECORDS SUMMARY | ~2019-09-12 | XMS | Encounter Summary ---
Demographics + + + | Address | [address] | | | [place] [address] | + + + | Home Phone | | + + + | Preferred Language | Unknown | + + + | Marital Status | | + + + | Buddhist Affiliation | Unknown | + + + | Race | Unknown | + + + | Ethnic Group | Unknown | + + + Author + + + | Author | [facility] | | | and [place] | + + + | Organization | [facility] | | | and [...] | | | | | [place] [address] | | + + + + + | Valentín Saleh | ECON | [address] | | | | | [place] [address] | | + + + + + | Roberto Carlos Lennon | LEVI | [place] | | + + + + + Care Team Providers + +------+ + | Care Freight Router Name | Role | Phone | + +------+ + PCP | Unavailable | + +------+ + Encounter Details +--------+ + + + + | Date | Type | Department | Care Team | Description | +--------+ + + + + | 01/20/ | Hospital | [facility] | | | | 1997 | Encounter | MED CTR XRAY [address] | | | | | [address] [place] | | | | | | [place] [address] | | | | | | [phone] | | | +--------+ + + + [...] | | | | | | [place] [address] | | | | | | [phone] | | | | | | | | +--------+---------+ + + + documented as of this encounter Visit Diagnoses Not on filedocumented in this encounter"
--- OUTSIDE RECORDS SUMMARY | ~2019-09-12 | XMS | Encounter Summary ---
Demographics + + + | Address | [address] | | | [place] [address] | + + + | Home Phone | | + + + | Preferred Language | Unknown | + + + | Marital Status | | + + + | Church Affiliation | Unknown | + + + | Race | Unknown | + + + | Ethnic Group | Unknown | + + + Author + + + | Author | [facility] | | | and Clarkeana | + + + | Organization | [facility] | [...] | | | | | [place] [address] | | + + + + + | Valentín Saleh | ECON | [address] | | | | | [place] [address] | | + + + + + | Roberto Carlos Lennon | LEVI | [place] | | + + + + + Care Team Providers + +------+ + | Care Decorating Kiln Operator Name | Role | Phone | + +------+ + PCP | Unavailable | + +------+ + Encounter Details +--------+ + + + + | Date | Type | Department | Care Team | Description | +--------+ + + + + | 10/29/ | Hospital | [facility] | | | | 1996 | Encounter | MED CTR XRAY [address] | | | | | | [place] | | | | | | [place] [address] | | | | | | [phone] | | | +--------+ + + + [...] | | | | | | [place] [address] | | | | | | [phone] | | | | | | | | +--------+---------+ + + + documented as of this encounter Visit Diagnoses Not on filedocumented in this encounter"
--- OUTSIDE RECORDS SUMMARY | ~2019-09-12 | XMS | Encounter Summary ---
Demographics + + + | Address | [address] | | | [place] [address] | + + + | Home Phone [...] Author | [facility] | | | and Clarkeana | + + + | Organization | [facility] | [...] | | | | | [place] [address] | | + + + + + | Valentín Saleh | ECON | [address] | | | | | [place] [address] | | + + + + + | Roberto Carlos Lennon | LEVI | [place] | | + + + + + Care Team Providers + +------+ + | Care Vacuum Kettle Cook Name | Role | Phone | + +------+ + PCP | Unavailable | + +------+ + Encounter Details +--------+ + + + + | Date | Type | Department | Care Team | Description | +--------+ + + + + | 10/29/ | Hospital | [facility] | | | | 2002 | Encounter | MED CTR XRAY [address] | | | | | | [place] | | | | | | [place] [address] | | | | | | [phone] | | | +--------+ + + + [...] | | | | | | [place] [address] | | | | | | [phone] | | | | | | | | +--------+---------+ + + + documented as of this encounter Visit Diagnoses Not on filedocumented in this encounter"
--- OUTSIDE RECORDS SUMMARY | ~2019-09-12 | XMS | Encounter Summary ---
Demographics + + + | Address | [address] | | | [place] [address] | + + + | Home Phone | | + + + | Preferred Language | Unknown | + + + | Marital Status | | + + + | Voodoo Affiliation | Unknown | + + + | Race | Unknown | + + + | Ethnic Group | Unknown | + + + Author + + + | Author | [facility] | | | and Clarkeana | + + + | Organization | [facility] [...] | | | | | [place] [address] | | + + + + + | Valentín Saleh | ECON | [address] | | | | | [place] [address] | | + + + + + | Roberto Carlos Lennon | LEVI | Unknown | | + + + + + Care Team Providers + +------+ + | Care Machine Taper Name | Role | Phone | + [...] | 01/24/ | Refill | [facility] | Francois Pascal, | Medication Refill | | 2013 | | MEDICINE [facility] [place] | [address] | | | | | [address]VE [place], | [address] [place], | | | | | [place] [address] | [place] [address] | | | | | [phone] | [phone] | | | | | | | [...] | | | | | | [place] [address] | | | | | | [phone] | | | | | | | | +--------+---------+ + + + documented as of this encounter Visit Diagnoses Not on filedocumented in this encounter"
--- OUTSIDE RECORDS SUMMARY | ~2019-09-12 | XMS | Encounter Summary ---
Demographics + + + | Address | [address] | | | [place] [address] | + + + | Home Phone [...] | Author | [facility] | | | and Clarkeana | + + + | Organization | [facility] | | [...] | | | | | [place] [address] | | + + + + + | Valentín Saleh | ECON | [address] | | | | | [place] [address] | | + + + + + | Roberto Carlos Lennon | LEVI | [place] | | + + + + + Care Team Providers + +------+ + | Care Metal Casket Maker Name | Role | Phone | + +------+ + PCP | Unavailable | + +------+ + Encounter Details +--------+ + + + + | Date | Type | Department | Care Team | Description | +--------+ + + + + | 11/23/ | Hospital | [facility] | | | | 2002 | Encounter | MED CTR LABORATORY | | | | | | [address] [place] | | | | | | [place] | | | | | | [address] | | | | | | [phone] | | | +--------+ + + + [...] | | | | | | [place] [address] | | | | | | [phone] | | | | | | | | +--------+---------+ + + + documented as of this encounter Visit Diagnoses Not on filedocumented in this encounter"
--- OUTSIDE RECORDS SUMMARY | ~2019-09-12 | XMS | Encounter Summary ---
Demographics + + + | Address | [address] | | | [place] [address] | + + + | Home Phone [...] + | Author | [facility] | | | and Clarkeana | + + + | Organization | [facility] | | [...] | | | | | [place] [address] | | + + + + + | Valentín Saleh | ECON | [address] | | | | | [place] [address] | | + + + + + | Roberto Carlos Lennon | LEVI | Unknown | | + + + + + Care Team Providers + +------+ + | Care Medical Detail Representative Name | Role | Phone | + +------+ + | Francois Pascal MD | PCP | | + +------+ + Encounter Details +--------+ + + + + | Date | Type | Department | Care Team | Description | +--------+ + + + + | 03/14/ | Hospital | [facility] | Francois Pascal, | DM (diabetes | | 2012 - | Encounter | MED CTR LABORATORY | [address] | mellitus) ([facility]); | | | | [address] [place] | [address] [place], | ARTHRITIS, CHRONIC | | 03/16/ | | [place], [place] | [place] [address] | | | 2012 | | [address] | [phone] | | | | | [phone] | | | +--------+ + + + [...] | | | | | | mellitus) ([facility]) | | | | | [...] documented as of this encounter Progress Notes Gabbie Doan - 03/15/2012 12:08 PM PST Quick Note: Letter sent to patient Advising. Appointment 03-29-12. Gabbie Doan CMA Francois Cueto MD - 03/14/2012 4:36 PM PST Quick Note: Ok for ma to notify patient that he has somewhat abnormal labs and would like to discuss w josein a month. docunara in thi s encounter Plan of Treatment +--------+---------+ + + + | Date | Type | Specialty | Care Team | Description | +--------+---------+ + + + | 12/06/ | Office | Cardiology | Stephenie Paul, | | | 2019 | Visit | | MD [address] | | | | | | [place], | | | | | | [place] [address] | | | | | | [phone] | | | | | | | [...] + + + | White Blood | 9.3 | 4.0 - 11.0 K/uL | [facility] [...] + | [facility] | [address] | [place] | [phone] | | [facility] | | [address] | | | - LABORATORY | | | | + + + + + | [facility] | [address] | [place], [place] | | | [facility] | | [id number] | | | - LABORATORY [...] 3.5 | 3.2 - 5.0 gm/dL | [facility] | | | | | | [facility] | | | | | | MEDICAL | | | | | | CENTER - | | | | | | LABORATORY | | + + + + + + | BUN | 18 | 7 - 18 mg/dL | [facility] | | | | | | [facility] | | | | | | MEDICAL | | | | | | CENTER - | | | | | | LABORATORY | | + + + + + + | Creatinine | 1.18 | 0.60 - 1.30 | [facility] | | | | | mg/dL | [...] At | + + + | | [facility] | | | [facility] | | | [facility] | | | - LABORATORY | + + + + + + + + | Performing | Address | City/State/Zipcode | Phone Number | | Organization | | | | + + + + + | [facility] | [address] | [place] | [phone] | | [facility] | | [address] | | | - LABORATORY | | | | + + + + + | [facility] | [address] | [place] | | | [facility] | | [id number] | | | - LABORATORY [...] (H)Comment: | 4.3 - 5.8 % | [facility] | | | A1c | DIABETIC PATIENT [...] + | [facility] | [address] | [place], [place] | [phone] | | [facility] | | [address] | | | - LABORATORY | | | | + + + + + | [facility] | [address] | [place], [place] | | | [facility] | | [address], [facility] | | | - [...]
--- OUTSIDE RECORDS SUMMARY | ~2019-09-12 | XMS | Encounter Summary ---
Demographics + + + | Address | [address] | | | [place] [address] | + + + | Home Phone [...] Author | [facility] | | | and Clarkeana | + + + | Organization | [facility] [...] | | | | | [place] [address] | | + + + + + | Valentín Saleh | ECON | [address] | | | | | [place] [address] | | + + + + + | Roberto Carlos Lennon | LEVI | Unknown | | + + + + + Care Team Providers + +------+ + | Care Agricultural Lender Name | Role | Phone | + +------+ + | Francois Pascal MD | PCP | | + +------+ + Reason for Visit + +--------+ + | Reason | Onset | Comments | | | Date | | + +--------+ + | Medication Refill | 02/05/ | | | | 2015 | | + +--------+ + Encounter Details +--------+--------+ + + + | Date | Type | Department | Care Team | Description | +--------+--------+ + + + | 02/05/ | Refill | [facility] [place] [facility] | Francois Pascal, | Medication Refill | | 2015 | | MEDICINE [address] | [address] | | | | | [place], | [address] [place], | | | | | [place] [address] | [place] [address] | | | | | [phone] | [phone] | | | | | | | [...] [place], | | | | | | [place] [address] | | | | | | [phone] | | | | | | | | +--------+---------+ + + + documented as of this encounter Visit Diagnoses Not on filedocumented in this encounter"
--- OUTSIDE RECORDS SUMMARY | ~2019-09-12 | XMS | Encounter Summary ---
Demographics + + + | Address | [address] | | | [place] [address] | + + + | Home Phone [...] Author | [facility] | | | and Clarkeana | + + + | Organization | [facility] | [...] | | | | | [place] [address] | | + + + + + | Valentín Saleh | ECON | [address] | | | | | [place] [address] | | + + + + + | Roberto Carlos Lennon | LEVI | [place] | | + + + + + Care Team Providers + +------+ + | Care Digital Media Representative Name | Role | Phone | + +------+ + PCP | Unavailable | + +------+ + Encounter Details +--------+ + + + + | Date | Type | Department | Care Team | Description | +--------+ + + + + | 03/20/ | Hospital | [facility] | Gal Mejia, | | | 2007 | Encounter | MED CTR XRAY [address] | [address] [facility] | | | | | [place] | [address] [address] | | | | | [place] [address] | [address] | | | | | [phone] | | | +--------+ + + + [...] [place], | | | | | | [place] [address] | | | | | | [phone] | | | | | | | | +--------+---------+ + + + documented as of this encounter Visit Diagnoses Not on filedocumented in this encounter"
--- OUTSIDE RECORDS SUMMARY | ~2019-09-12 | XMS | Encounter Summary ---
Demographics + + + | Address | [address] | | | [place] [address] | + + + | Home Phone [...] Author | [facility] | | | and Clarkeana | + + + | Organization | [facility] | [...] | | | | | [place] [address] | | + + + + + | Valentín Saleh | ECON | [address] | | | | | [place] [address] | | + + + + + | Roberto Carlos Lennon | LEVI | Unknown | | + + + + + Care Team Providers + +------+ + | Care Single Stayer Operator Name | Role | Phone | [...] + + | Closed | Specialty | Diabetes | Diagnoses | [place], | [facility] | | | Services | Educator / | DM | Francois Tello MD | Diabetes | | | Required | Diabetes | (diabetes | [address] | Education | | | | Services | mellitus) | [address] | [address] | | | | | ([facility]) | [place] | [place], | | | | | | [place], [place] | [place] | | | | | | [address] | [address] | | | | | | Phone: | Phone: | | | | | | [phone] | [phone] | | | | | | Fax: | Fax: | | | | | | [phone] | [phone] | +--------+ + + + + + Reason for Visit +---------+ + | Reason | Comments | +---------+ + | Results | Lab | +---------+ + Encounter Details +--------+---------+ + + + | Date | Type | Department | Care Team | Description | +--------+---------+ + + + | 09/18/ | Office | [facility] | Francois Pascal, | HYPERTENSION NEC | | 2014 | Visit | MEDICINE [address] [place] [address] | [address] | (Primary Dx); | | | | AVE [place], | [address] [place], | CHRONIC KIDNEY | | | | [place] [address] | [place] [address] | DISEASE STAGE III | | | | [phone] | [phone] | (MODERATE); DM | | | | | | (diabetes mellitus); | | | | | | Hyperlipidemia; | | | | | | Glossitis [...] + + + | Blood Pressure | 106/60 | 09/18/2013 10:51 AM | | | | | PDT | | + + + + + | Pulse | 66 | 09/18/2013 10:51 AM | | | | | PDT | | + + + + + | Temperature | 36.8 C (98.3 F) | 09/18/2013 10:51 AM | | | | | PDT | | + + + + + | Respiratory Rate | 20 | 09/18/2013 10:51 AM | | | | | PDT | | + + + + + | Oxygen Saturation | 96% | 09/18/2013 10:51 AM | | | | | PDT | | + + + + + | Inhaled Oxygen | - | - | | | Concentration | | | | + + + + + | Weight | 75.7 kg (166 lb 14.4 | 09/18/2013 10:51 AM | | | | oz) | PDT | | + + + + + | Height | - | - | | + + + + + | Body Mass Index | 28.65 | 06/18/2013 10:34 AM | | | | | PDT | | + + + + + documented in this encounter Progress Notes Francois Pascal MD - 09/18/2013 11:00 AM PDTFormatting of this note might [...] is runs in the 100-140's She is compliant with her medications, she denies polyuria, polydipsia or polyphagia, She admits to having the right diet. She declines further dietary consult. She tries to watch her diet "with every bit she takes". She is eating a lot of greens this summer. Autoimmune Glossitis, She is on her MTX. Her mouth is still occasionally sore but none n ow. It still feeling sore though. 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 CKD, She urinates normally. There is no [...] years ago, Still hard to walk. She never ended up g oing to therapy She has an appointment with an accupuncturist. Past Medical History: Reviewed history from 06/24/2011 [...] VSD Father 50 Pneumonia Family Hx of Penobscot's chorea Sister and 2 brothers: CAD, Penobscot's Disease to [place] - with 2 Healthy Children No kidney disease in family. Social History: Reviewed history from 08/11/2011 and no changes required: Born in [facility] for [facility] years. and Remarried [...] gross lesions Assessment: 1. HYPERTENSION NEC 2. CHRONIC KIDNEY DISEASE STAGE III (MODERATE) 3. DM (diabetes mellitus) 4. Hyperlipidemia 5. Glossitis Plan: She looks and feels fine. RTC 3 months with labs prior. Her HBA1C is a little worse this time. She will work on her diet again. Refer to Sheridan Hernández. documented in this encounter Plan of Treatment +--------+---------+ + + + | Date | Type | Specialty | Care Team | Description | +--------+---------+ + + + | 12/06/ | Office | Cardiology | Stephenie Paul, | | | 2019 | Visit | | MD [address] | | | | | | [place], | | | | | | [place] [address] | | | | | | [phone] | | | | | | | | +--------+---------+ + + + + + +--------+ + + | Name | Type | Priori | Associated Diagnoses | Order Schedule | | | | ty | | | + + +--------+ + + | Ambulatory referral | Outpatient | Routin | DM (diabetes | Ordered: 09/18/2013 | | to Diabetic | Referral | e | mellitus) | | | Education | | | | | + + [...] - 1.030 | [facility] | | | [place], | | | [facility] | | | Urine | | | MEDICAL | | | | | | CENTER - | | | | | | LABORATORY | | + + + + + + | Protein, | Negative | Negative, | [facility] | | | Urine | | Trace, 30 mg/dL | [facility] | | | [...] + | [facility] | [address] | [place], [place] | [phone] | | [facility] | | [address] | | | - LABORATORY | | | | + + + + + | [facility] | [address] | [place], [place] | | | [facility] | | [address] [place] [place] [address] | | | - LABORATORY | | [...] + | [facility] | [address] | [place], [place] | [phone] | | [facility] | | [address] | | | - LABORATORY | | | | + + + + + | [facility] | [address] | [place], [place] | | | [facility] | | [address] | | | - LABORATORY [...] | Basophils | | K/uL | [facility] | | | | | | [...] + | [facility] | [address] | [place] | [phone] | | [facility] | | [address] | | | - LABORATORY | | | | + + + + + | [facility] | [address] | [place] | | | [facility] | | [address], [facility] | | | - [...] | | | | | mmol/L | [facility] | | | | | [...] not | 48 (L)Comment: | >=60 | [facility] | | | | GLOMERULAR FILTRATION | mL/min/1.73m2 | [facility] | | | [place] | RATE,ESTIMATED | | MEDICAL | | | | mL/min/1.69o9Uszd than | | CENTER - | | [...] | 9.8 | 8.3 - 10.5 | [facility] | [...] 0.8 | 0.1 - 1.5 mg/dL | [facility] | | | Total | | | [...] + | [facility] | [address] | [place], [place] | [phone] | | [facility] | | [address] | | | - LABORATORY | | | | + + + + + | [facility] | [address] | [place], [place] | | | [facility] | | [address] [place] [place] [address] | | | - LABORATORY | | | | + + + + + documented in this encounter Visit Diagnoses + + | Diagnosis | + + | HYPERTENSION NEC - Primary Complications affecting other specified body systems, | | hypertension | + + | CHRONIC KIDNEY [...]
--- OUTSIDE RECORDS SUMMARY | ~2019-09-12 | XMS | Encounter Summary ---
Demographics + + + | Address | [address] | | | [place] [address] | + + + | Home Phone [...] + | Author | [facility] | | | and Clarkeana | + + + | Organization | [facility] | [...] | | | | | [place] [address] | | + + + + + | Valentín Saleh | ECON | [address] | | | | | [place] [address] | | + + + + + | Roberto Carlos Lennon | LEVI | Unknown | | + + + + + Care Team Providers + +------+ + | Care Trailer Steerer Name | Role | Phone | + +------+ + | No, Physician | PCP | Unavailable | + +------+ + Encounter Details +--------+ + + + + | Date | Type | Department | Care Team | Description | +--------+ + + + + | 10/03/ | Lab | [facility] | [place], | Chronic kidney | | 2018 | Requisition | MED CTR LABORATORY | [address] | disease, stage III | | | | [address] [place] | [address] | (moderate); 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 | | | | [phone] | | retinopathy and | | | [...] | | | | | | [place] [address] | | | | | | [phone] | | | | | | | | +--------+---------+ + + + documented as of this encounter Procedures + +--------+ + + + | Procedure Name | Priori | Date/Time | Associated Diagnosis | Comments | | | ty | | | | + +--------+ + + + | EXTRA PLAIN RED TOP | Routin | 10/03/2017 | Chronic kidney | Results for this | | | e | 7:15 AM | disease, stage III | procedure [...] + | VITAMIN D, | Routin | 10/03/2017 | Chronic kidney | Results for this | | DEFICIENCY SCREEN | e | 7:15 AM | disease, stage III | procedure are in the | | (25-HYDROXY) | | PDT | (moderate) Type 2 [...] + | HEMOGLOBIN A1C | Routin | 10/03/2017 | Chronic kidney | Results for this | | | e | 7:15 AM | disease, stage III | procedure [...] | RENAL FUNCTION PANEL | Routin | 10/03/2017 | Chronic kidney | Results for this | | | e | 7:15 AM | disease, stage III | procedure [...] documented in this encounter Results Vitamin D, Deficiency Screen (25-Hydroxy) (10/03/2017 7:15 AM PDT) + +--------+ + + + | Component | Value | Ref Range | Performed | Pathologist | | | | | At | Signature | + +--------+ + + + | Vitamin D, | 22 (L) | 30 - 80 ng/mL | [facility] | | | 25 Hydroxy | | | [facility] | | [...] + | [facility] | [address] | [place] | [phone] | | [facility] | | [address] | | | - LABORATORY | | | | + + + + + Renal Function Panel (10/03/2017 7:15 AM PDT) + +---------+ + + + | Component | Value | Ref Range | Performed | Pathologist | | | | | At | Signature | + +---------+ + + + | Na | 134 (L) | 136 - 149 | [facility] | | | | | mmol/L | [facility] | | | | | | MEDICAL | | | | | | CENTER - | | | | | | LABORATORY | | + +---------+ + + + | K | 4.4 | 3.5 - 5.1 | [facility] | | | | | mmol/L | [facility] | | | | | | MEDICAL | | | | | | CENTER - | | | | | | LABORATORY | | + +---------+ + + + | Cl | 100 | 98 - 109 mmol/L | [facility] | | | | | | [facility] | | | | | | MEDICAL | | | | | | CENTER - | | | | | | LABORATORY | | + +---------+ + + + | CO2 | 25 [...] +---------+ + + + | Glucose | 165 (H) | 70 - 109 mg/dL | [facility] | | | | | | [facility] | | | | | | MEDICAL | | | | | | CENTER - | | | | | | LABORATORY | | + +---------+ + + + | BUN | 15 | 7 - 18 mg/dL | [facility] | | | | | | [facility] | | | | | | MEDICAL | | | | | | CENTER - | | | | | | LABORATORY | | + +---------+ + + + | Creatinine | 0.69 | 0.60 - 1.30 | [facility] | [...] mL/min/1.73m2 | [facility] | | | [place] | | | MEDICAL | | | [...] +---------+ + + + | Phosphorus | 3.4 | 2.5 - 4.6 mg/dL | [facility] | | | | | | [facility] | | | | | | MEDICAL | | | | | | CENTER - | | | | | | LABORATORY | | + +---------+ + + + | BUN/Creatin | 21.7 | | [facility] | | | ine [...] | [address] | [place] | [phone] | | [facility] | | [address] | | | - LABORATORY | | | | + + + + + Extra Plain Red Top Tube (10/03/2017 7:15 AM PDT) + +-------+ + + + | Component | Value | Ref Range | Performed | Pathologist | | | | | At | Signature | + +-------+ + + + | Extra Plain | Done | | [facility] | | | Red Top | | | [facility] | | | Tube | | | MEDICAL | | | [...] [address] | [place] | [phone] | | [facility] | | [address] | | | - LABORATORY | | | | + + + + + Hemoglobin A1C (10/03/2017 7:15 AM PDT) + +---------+ + + + | Component | Value | Ref Range | Performed | Pathologist | | | | | At | Signature | + +---------+ + + + | Hemoglobin | 9.7 (H) | 4.3 - 6.0 % | [facility] | | | A1c | | | [facility] | | | | | | MEDICAL | | | | | | CENTER - | | | | | | LABORATORY | | + +---------+ + + + | Estimated | 232 | mg/dL | [facility] | | | [...] ST. | [address] | [place] | [phone] | | [facility] | | [address] | | | - LABORATORY | | [...]
--- OUTSIDE RECORDS SUMMARY | ~2019-09-12 | XMS | Encounter Summary ---
Demographics + + + | Address | [address] | | | [place] [address] | + + + | Home Phone [...] Author | [facility] | | | and [place] | + + + | Organization | [facility] | | [...] | | | | | [place] [address] | | + + + + + | Valentín Saleh | ECON | [phone] | | | | | [place] [address] | | + + + + + | Roberto Carlos Lennon | LEVI | Jeyson | | + + + + + Care Team Providers + +------+ + | Care Body Shop Manager Name | Role | Phone | + +------+ + PCP | Unavailable | + +------+ + Encounter Details +--------+ + + + + | Date | Type | Department | Care Team | Description | +--------+ + + + + | 12/13/ | Hospital | [facility] | | | | 1994 | Encounter | [facility] | | | | | | CENTER [address] | | | | | | [place] | | | | | | [address] | | | | | | [phone] | | | +--------+ + + + [...] | | | | | | [place] [address] | | | | | | [phone] | | | | | | | | +--------+---------+ + + + documented as of this encounter Visit Diagnoses Not on filedocumented in this encounter"
--- OUTSIDE RECORDS SUMMARY | ~2019-09-12 | XMS | Encounter Summary ---
Demographics + + + | Address | [address] | | | [place] [address] | + + + | Home Phone [...] + | Author | [facility] | | | and [place] | + + + | Organization | [facility] | [...] | | | | | [place] [address] | | + + + + + | Valentín Saleh | ECON | [address] | | | | | [place] [address] | | + + + + + | Roberto Carlos Lennon | LEVI | Unknown | | + + + + + Care Team Providers + +------+ + | Care Furniture Upholsterer Name | Role | Phone | + [...] + + | 12/04/ | Emergency | [facility] | Jose G Reich, | Bleeding (Primary | | 2018 | | MED CTR EMERGENCY | MD [address] | Dx) | | | | CENTER [address] | [place] | | | | | [place] | [address] | | | | | [address] | | | | | | [phone] | | | +--------+ + + + [...] | | 0 | | | | Dpmdugo-Yeiotqzud-Yc | mouth Daily. 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 FMVIHFZ-JRPAOAWMC-YKSCDAY D (CALCIUM 500 PO) Take 1 tablet [...] Other (see comment) Other family history of [place]'s Disease Kidney disease Neg Hx SOCIAL HISTORY Social History Social History Marital status: Spouse name: Sigrid Number of children: 2 Years of education: N/A Occupational History Retired Social History Main Topics Smoking status: Never Smoker Smokeless tobacco: Never Used Alcohol use No Drug use: No Sexual activity: Not Asked Other Topics Concern None Social History Narrative Born in [facility] for [facility] years. and Remarried 2 sons local. Patient has never smoked. Alcohol Use - no Exercise: None Caffeine: Decaf only Living Situation: Lives with [place] REVIEW OF SYSTEMS All systems reviewed and [...] - 12/04/2017 12:44 PM [facility] for [facility] bleeding afte r [...] | | | | | | [place] [address] | | | | | | [phone] | | | | | | | [...]
--- OUTSIDE RECORDS SUMMARY | ~2019-09-12 | XMS | Encounter Summary ---
Demographics + + + | Address | [address] | | | [place] [address] | + + + | Home Phone [...] + + | Author | [facility] | | | and [place] | + + + | Organization | [facility] | | | and [place] | + + + | Address | Unknown | + + + | Phone | Unavailable | + + + Support + + + + + | Name | Relationship | Address | Phone | + + + + + | Sigrid Lennon | ECON | [address] | | | | | [place] [address] | | + + + + + | Valentín Saleh | ECON | [address] | | | | | [place] [address] | | + + + + + | Roberto Carlos Lennon | LEVI | Unknown | | + + + + + Care Team Providers + +------+ + | Care Clothing Worker Name | Role | Phone | [...] Description | +--------+--------+ + + + | 06/21/ | Refill | [facility] | Francois Pascal, | Medication Refill | | 2012 | | [facility] | [address] | | | | | [address] | [address] [place], | | | | | [place] | [place] [address] | | | | | [address] | [phone] | | | | | [phone] | | | +--------+--------+ + + + [...] Telephone Encounter - Diane Penn RN - 06/23/2012 1:28 PM PDTAppointment already sched uled. elephone Encounte r - Francois Pascal MD - 06/23/2012 11:37 AM PDTReviewed, ok to refill. Please let her k now we need to see her 3 months after her last visit. thanks elephone Encounter - Diane Penn RN - 06/24/19 13 10:37 AM PDTPlease review CBC and CMP and let me know if methotrexate can be sent.Electro nically signed by Diane Penn RN at 06/23/2012 10:38 AM PDTTelephone Encounter - Diane Penn RN - 06/22/2012 12:05 PM PDTPut standing orders in for Every 2 months labs for CBC and CMP. Called and let patient know orders are ready for her to get lab tests done.Electronically s igned by Diane Penn RN at 06/22/2012 12:07 PM PDTdocumented in this encounter Plan of Treatment +--------+---------+ + + + | Date | Type | Specialty | Care Team | Description | +--------+---------+ + + + | 12/06/ | Office | Cardiology | Stephenie Paul, | | | 2020 | Visit | | MD [address] | | | | | | [place], | | | | | | [place] [address] | | | | | | [phone] | | | | | | | | +--------+---------+ + + + + +------+--------+ + + | Name | Type | Priori | Associated Diagnoses | Order Schedule | | | | ty | | | + +------+--------+ + + | CBC with | Lab | Routin | ARTHRITIS, CHRONIC | Every 2 months for 6 | | Differential | | e | | Occurrences | | | | | | starting 06/22/2012 | | | | | | until 06/22/2013, 3 | | | | | | completed | + +------+--------+ + + | Comprehensive | Lab | Routin | ARTHRITIS, CHRONIC | Every 2 months for 6 | | Metabolic Panel | | e | | Occurrences | | | | | | starting 06/22/2012 | | | | | | until 06/22/2013, 2 | | | | | | completed | + +------+--------+ + + documented as of this encounter Results Comprehensive Metabolic Panel (02/26/2013 10:01 AM PST) + + + + + + | Component | Value | Ref Range | Performed | Pathologist | | | | | At | Signature | + + + + + + | Glucose | 110 (H) | 70 - 109 mg/dL | [facility] | | | | | | [facility] | | | | | | [facility] | | | | | | CENTER - | | | | | | LABORATORY | | + + + + + + | Calcium | 9.5 | 8.3 - 10.5 | [facility] | | | | | mg/dL | [facility] | | | | | | MEDICAL | | | | | | CENTER - | | | | | | LABORATORY | | + + + + + + | Alkaline | 54 | 40 - 110 IU/L | [facility] [...] + + + + | ALT | 21 | 6 - 45 IU/L | [facility] | | | | | | [facility] | | | | | | [facility]ICAL | | | | | | CENTER - | | | | | | LABORATORY | | + + + + + + | Bilirubin | 0.7 | 0.2 - 1.0 mg/dL | [facility] [...] + + + + | Creatinine | 1.27 | 0.60 - 1.30 | [facility] | | | | | mg/dL | [facility] | | | | | | MEDICAL | | | | | | CENTER - | | | | | | LABORATORY | | + + + + + + | Estimated | 40 (L)Comment: For | >60 mL/min/A | [facility] | | | GFR | -Americans, | | [facility] | | | | please multiply the [...] + + + + | BUN/Creatin | 18.1 | 12 - 20 | [facility] | | | ine Ratio | | | [facility] | | | | | | MEDICAL | | | | | | CENTER - | | | | | | LABORATORY | | + + + + + + | Na | 137 | 136 - 149 mEq/L | [facility] | | | | | | [facility] | | | | | | MEDICAL | | | | | | CENTER - | | | | | | LABORATORY | | + + + + + + | K | 3.6 | 3.5 - 5.1 mEq/l | [facility] | | | | | | [facility] | | | | | | MEDICAL | | | | | | CENTER - | | | | | | LABORATORY | | + + + + + + | Cl | 101 | 98 - 109 mEq/l | [facility] [...] + + + | Anion Gap | 11.6 | 6.0 - 17.0 | [facility] | [...] | [facility] | [address] | [place] | [phone] | | [facility] | | [address] | | | - LABORATORY | | | | + + + + + | [facility] | [address] | [place], [place] | | | [facility] | | [id number] [place] [address] | | | - LABORATORY | | | | + + + + + CBC with Differential (02/26/2013 10:01 AM PST) + + + + + + | Component | Value | Ref Range | Performed | Pathologist | | | | | At | Signature | + + + + + + | White Blood | 11.4 (H) | 4.0 - 11.0 K/uL | [facility] | | | Cells | | | [...] + + + + | Hemoglobin | 13.4 | 11.5 - 16.0 | [facility] | | | | | gm/dL | [facility] | | | | | | MEDICAL | | | | | | CENTER - | | | | | | LABORATORY | | + + + + + + | Hematocrit | 39.3 | 34.0 - 47.0 % | [facility] | | | | | | [facility] | | [facility] | | | [facility]ICAL | | | | | | CENTER - | | | | | | LABORATORY | | + + + + + + | MCV | 102.8 (H) | 83.0 - 101.0 fL | [facility] | | | | | | [facility] | | | | | | MEDICAL | | | | | | CENTER - | | | | | | LABORATORY | | + + + + + + | MCH | 35.0 | 28.0 - 35.0 pg | [facility] | | | | | | [facility] | | | | | | MEDICAL | | | | | | CENTER - | | | | | | LABORATORY | | + + + + + + | MCHC | 34.1 | 32.0 - 36.0 | [facility] | | | | | g/dL | [facility] | | | | | | MEDICAL | | | | | | CENTER - | | | | | | LABORATORY | | + + + + + + | RDW-CV | 14.3 | <15.0 % | [facility] | | | | | | [facility] | | | | | | MEDICAL | | | | | | CENTER - | | | | | | LABORATORY | | + + + + + + | Platelet | 158 | 140 - 440 K/uL | [facility] | | | Count | | | [facility] | | | | | | MEDICAL | | | | | | CENTER - | | | | | | LABORATORY | | + + + + + + | % | 59.9 | 45 - 75 % | [facility] | | | Neutrophils | | | [facility] | | | | | | MEDICAL | | | | | | CENTER - | | | | | | LABORATORY | | + + + + + + | % | 22.2 | 20 - 45 % | [facility] | | | Lymphocytes | | | [facility] | | | | | | MEDICAL | | | | | | CENTER - | | | | | | LABORATORY | | + + + + + + | % Monocytes | 11.0 | 4 - 12 % | [facility] [...] | | Eosinophils | | | [facility] | | | | | | MEDICAL | | | | | | CENTER - | | | | | | LABORATORY | | + + + + + + | % Basophils | 1.1 (H) | 0 - 1 % | [facility] | | | | | | [facility] | | | | | | MEDICAL | | | | | | CENTER - | | | | | | LABORATORY | | + + + + + + | Absolute | 6.8 (H) | 1.5 - 6.6 K/uL | [facility] | | | Neutrophils | | | [facility] | | | | | | MEDICAL | | | | | | CENTER - | | | | | | LABORATORY | | + + + + + + | Absolute | 2.5 | 0.6 - 3.2 K/uL | [facility] | | | Lymphocytes | | | [facility] | | | | | | MEDICAL | | | | | | CENTER - | | | | | | LABORATORY | | + + + + + + | Absolute | 1.3 (H) | 0.0 - 1.0 K/uL | [facility] | | | Monocytes | | | [facility] | | | | | | MEDICAL | | | | | | CENTER - | | | | | | LABORATORY | | + + + + + + | Absolute | 0.7 (H) | 0.0 - 0.4 K/uL | [facility] | | | Eosinophils | | | [facility] | | | | | | MEDICAL | | | | | | CENTER - | | | | | | LABORATORY | | + + + + + + | Absolute | 0.1 | 0.0 - 0.1 K/uL | [facility] | | | Basophils | | | [facility] | | [...] + | [facility] | [address] | [place] | [phone] | | [facility] | | [address] | | | - LABORATORY | | | | + + + + + | [facility] | [address] | [place], [place] | | | [facility] | | [address] [place] [address] | | | - LABORATORY | | | | + + + + + Comprehensive Metabolic Panel (11/14/2012 2:20 PM PDT) + + + + + + | Component | Value | Ref Range | Performed | Pathologist | | | | | At | Signature | + + + + + + | Glucose | 197 (H) | 70 - 109 mg/dL | [...] + + + + | Alkaline | 47 | 40 - 110 IU/L | [facility] | | | Phosphatase | | | [facility] | | | | | | MEDICAL | | | | | | CENTER - | | | | | | LABORATORY | | + + + + + + | AST | 32 | 10 - 42 IU/L | [facility] | | | | | | [facility] | | | | | | MEDICAL | | | | | | CENTER - | | | | | | LABORATORY | | + + + + + + | ALT | 21 | 6 - 45 IU/L | [facility] [...] + + + + | BUN | 30 (H) | 7 - 18 mg/dL | [facility] | | | | | | [facility] | | | | | | MEDICAL | | | | | | CENTER - | | | | | | LABORATORY | | + + + + + + | Creatinine | 1.73 (H) | 0.60 - 1.30 | [facility] | | | | | mg/dL | [facility] | | | | | | MEDICAL | | | | | | CENTER - | | | | | | LABORATORY | | + + + + + + | Estimated | 28 (L)Comment: For | >60 mL/min/A | [facility] [...] + + + + | BUN/Creatin | 17.3 | 12 - 20 | [facility] | | | ine Ratio | | | [facility] | | | | | | MEDICAL | | | | | | CENTER - | | | | | | LABORATORY | | + + + + + + | Na | 136 | 136 - 149 mEq/L | [facility] | | | | | | [facility] | | | | | | MEDICAL | | | | | | CENTER - | | | | | | LABORATORY | | + + + + + + | K | 4.8 | 3.5 - 5.1 mEq/l | [facility] | | | | | | [facility] | | | | | | MEDICAL | | | | | | CENTER - | | | | | | LABORATORY | | + + + + + + | Cl | 101 | 98 - 109 mEq/l | [facility] | | | | | | [facility] | | | | | | MEDICAL | | | | | | CENTER - | | | | | | LABORATORY | | + + + + + + | CO2 | 27 | 24 - 31 mEq/L | [facility] | | | | | | [facility] | | | | | | MEDICAL | | | | | | CENTER - | | | | | | LABORATORY | | + + + + + + | Anion Gap | 12.8 | 6.0 - 17.0 | [facility] | [...] | [facility] | [address] | [place] | [phone] | | [facility] | | [address] | | | - LABORATORY | | | | + + + + + | [facility] | [address] | [place] | | | [facility] | | [address] | | | - LABORATORY | | | | + + + + + CBC with Differential (11/14/2012 2:20 PM PDT) + + + + + + | Component | Value | Ref Range | Performed | Pathologist | | | | | At | Signature | + + + + + + | White Blood | 11.4 (H) | 4.0 - 11.0 K/uL | [facility] | | | Cells | | | [facility] | | | | | | MEDICAL | | | | | | CENTER - | | | | | | LABORATORY | | + + + + + + | Red Blood | 3.68 (L) | 3.70 - 5.20 | [facility] | | | Cells | | M/uL | [facility] | | | | | | MEDICAL | | | | | | CENTER - | | | | | | LABORATORY | | + + + + + + | Hemoglobin | 13.1 | 11.5 - 16.0 | [facility] | | | | | gm/dL | [facility] | | | | | | MEDICAL | | | | | | CENTER - | | | | | | LABORATORY | | + + + + + + | Hematocrit | 39.7 | 34.0 - 47.0 % | [facility] | | | | | | [facility] | | | | | | MEDICAL | | | | | | CENTER - | | | | | | LABORATORY | | + + + + + + | MCV | 107.9 (H) | 83.0 - 101.0 fL | [facility] | | | | | | [facility] | | | | | | MEDICAL | | | | | | CENTER - | | | | | | LABORATORY | | + + + + + + | MCH | 35.5 (H) | 28.0 - 35.0 pg | [facility] | | | | | | [facility] | | | | | | MEDICAL | | | | | | CENTER - | | | | | | LABORATORY | | + + + + + + | MCHC | 32.9 | 32.0 - 36.0 | [facility] | | | | | g/dL | [facility] | | | | [...] | | Count | | | [facility] | | | | | | MEDICAL | | | | | | CENTER - | | | | | | LABORATORY | | + + + + + + | % | 65.1 | 45 - 75 % | [facility] | | | Neutrophils | | | [facility] | | | | | | MEDICAL | | | | | | CENTER - | | | | | | LABORATORY | | + + + + + + | % | 18.0 (L) | 20 - 45 % | [facility] | | | Lymphocytes | | | [facility] | | | | | | MEDICAL | | | | | | CENTER - | | | | | | LABORATORY | | + + + + + + | % Monocytes | 11.3 | 4 - 12 % | [facility] | | | | | | [facility] | | | | | | MEDICAL | | | | | | CENTER - | | | | | | LABORATORY | | + + + + + + | % | 4.6 | 0 - 5 % | [facility] | | | Eosinophils | | | [facility] | | | | | | MEDICAL | | | | | | CENTER - | | | | | | LABORATORY | | + + + + + + | % Basophils | 1.0 | 0 - 1 % | [facility] | | | | | | [facility] | | | | | | MEDICAL | | | | | | CENTER - | | | | | | LABORATORY | | + + + + + + | Absolute | 7.4 (H) | 1.5 - 6.6 K/uL | [facility] | | | Neutrophils | | | [facility] | | | | | | MEDICAL | | | | | | CENTER - | | | | | | LABORATORY | | + + + + + + | Absolute | 2.1 | 0.6 - 3.2 K/uL | [facility] | | | Lymphocytes | | | [facility] | | | | | | MEDICAL | | | | | | CENTER - | | | | | | LABORATORY | | + + + + + + | Absolute | 1.3 (H) | 0.0 - 1.0 K/uL | [facility] | | | Monocytes | | | [facility] | | | | | | MEDICAL | | | | | | CENTER - | | | | | | LABORATORY | | + + + + + + | Absolute | 0.5 (H) | 0.0 - 0.4 K/uL | [facility] | | | Eosinophils | | | [facility] | | | | | | MEDICAL | | | | | | CENTER - | | | | | | LABORATORY | | + + + + + + | Absolute | 0.1 | 0.0 - 0.1 K/uL | [facility] | | | Basophils | | | [facility] | | [address] | [place] | [phone] | | [facility] | | [address] | | | - LABORATORY | | | | + + + + + | [facility] | [address] | [place] | | | [facility] | | [address] | | | - LABORATORY | | | | + + + + + CBC with Differential (06/23/2012 9:32 AM PDT) + + + + + + | Component | Value | Ref Range | Performed | Pathologist | | | | | At | Signature | + + + + + + | White Blood | 9.2 | 4.0 - 11.0 K/uL | [facility] | | | Cells | | | [facility] | | | | | | MEDICAL | | | | | | CENTER - | | | | | | LABORATORY | | + + + + + + | Red Blood | 3.74 | 3.70 - 5.20 | [facility] | | | Cells | | M/uL | [facility] | | | | | | MEDICAL | | | | | | CENTER - | | | | | | LABORATORY | | + + + + + + | Hemoglobin | 13.6 | 11.5 - 16.0 | [facility] | | | | | gm/dL | [facility] | | | | | | MEDICAL | | | | | | CENTER - | | | | | | LABORATORY | | + + + + + + | Hematocrit | 40.3 | 34.0 - 47.0 % | [facility] | | | | | | [facility] | | | | | | MEDICAL | | | | | | CENTER - | | | | | | LABORATORY | | + + + + + + | MCV | 108.0 (H) | 83.0 - 101.0 fL | [facility] | | | | | | [facility] | | | | | | MEDICAL | | | | | | CENTER - | | | | | | LABORATORY | | + + + + + + | MCH | 36.4 (H) | 28.0 - 35.0 pg | [...] | | | | g/dL | [facility] | | | | | | MEDICAL | | | | | | CENTER - | | | | | | LABORATORY | | + + + + + + | RDW-CV | 15.0 | <15.0 % | [facility] | | | | | | [facility] | | | | | | MEDICAL | | | | | | CENTER - | | | | | | LABORATORY | | + + + + + + | Platelet | 171 | 140 - 440 K/uL | [facility] | | | Count | | | [facility] | | | | | | MEDICAL | | | | | | CENTER - | | | | | | LABORATORY | | + + + + + + | % | 59.0 | 45 - 75 % | [facility] | | | Neutrophils | | | [facility] | | | | | | MEDICAL | | | | | | CENTER - | | | | | | LABORATORY | | + + + + + + | % | 26.8 | 20 - 45 % | [facility] | | | Lymphocytes | | | [facility] | | | | | | MEDICAL | | | | | | CENTER - | | | | | | LABORATORY | | + + + + + + | % Monocytes | 7.5 | 4 - 12 % | [facility] | | | | | | [facility] | | | | | | MEDICAL | | | | | | CENTER - | | | | | | LABORATORY | | + + + + + + | % | 5.5 (H) | 0 - 5 % | [facility] | | | Eosinophils | | | [facility] | | | | | | MEDICAL | | | | | | CENTER - | | | | | | LABORATORY | | + + + + + + | % Basophils | 1.2 (H) | 0 - 1 % | [facility] | | | | | | [facility] | | | | | | MEDICAL | | | | | | CENTER - | | | | | | LABORATORY | | + + + + + + | Absolute | 5.5 | 1.5 - 6.6 K/uL | [facility] | | | Neutrophils | | | [facility] | | | | | | MEDICAL | | | | | | CENTER - | | | | | | LABORATORY | | + + + + + + | Absolute | 2.5 | 0.6 - 3.2 K/uL | [facility] | | | Lymphocytes | | | [facility] | | | | | | MEDICAL | | | | | | CENTER - | | | | | | LABORATORY | | + + + + + + | Absolute | 0.7 | 0.0 - 1.0 K/uL | [facility] | | | Monocytes | | | [facility] | | | | | | MEDICAL | | | | | | CENTER - | | | | | | LABORATORY | | + + + + + + | Absolute | 0.5 (H) | 0.0 - 0.4 K/uL | [facility] | | | Eosinophils | | | [facility] | | | | | | MEDICAL | | | | | | CENTER - | | | | | | LABORATORY | | + + + + + + | Absolute | 0.1 | 0.0 - 0.1 K/uL | [facility] | | | Basophils | | | [facility] | | [...] | + + + + + | [facility] | [address] | [place], [place] | [phone] | | [facility] | | [address] | | | - LABORATORY | | | | + + + + + | [facility] | [address] | [place], [place] | | | [facility] | | [id number] [place] [address] | | | - LABORATORY | | | | + + + + + documented in this encounter Visit Diagnoses + + | Diagnosis | + + | ARTHRITIS, CHRONIC - Primary Arthropathy, unspecified, site unspecified | + + documented in this encounter"
--- OUTSIDE RECORDS SUMMARY | ~2019-09-12 | XMS | Encounter Summary ---
Demographics + + + | Address | [address] | | | [place] [address] | + + + | Home Phone [...] + | Author | [facility] | | | and [place] | + + + | Organization | [facility] [...] | | | | | [place] [address] | | + + + + + | Valentín Saleh | ECON | [address] | | | | | [place] [address] | | + + + + + | Roberto Carlos Lennon | LEVI | Unknown | | + + + + + Care Team Providers + +------+ + | Care Ticket Collector Name | Role | Phone | + +------+ + | Francois Pascal MD | PCP | | + +------+ + Reason for Visit +---------+ + | Reason | Comments | +---------+ + | No Show | | +---------+ + Encounter Details +--------+ + + + + | Date | Type | Department | Care Team | Description | +--------+ + + + + | 02/26/ | Documentati | [facility] | Cheyenne Caballero, | No Show | | 2014 | on | MED CTR THERAPY PT | [facility] [address] | | | | | OP [address] | [place] | | | | | [place] | [id number] | | | | | [address] | | | | | | [phone] | | | +--------+ + + + [...] as of this encounter Progress Notes Cheyenne Caballero PTA - 02/26/2015 9:45 [facility] [address] [place] [address] Cancellation/No Show Date: 02/26/2015 Patient Information Patient Name: Alyson Lennon Date of : 1930 Age: 84 y.o. Reason for missed visit: no show Phone call placed: yes - left message with time and date of next appt Plan: cont next week Electronically signed by: Cheyenne Caballero PTA, 02/26/2015 9:45 Patient Name: Alyson Lennon/: 1930/ documented in [...] | | | | | | [place] [address] | | | | | | [phone] | | | | | | | [...]
--- OUTSIDE RECORDS SUMMARY | ~2019-09-12 | XMS | Encounter Summary ---
Demographics + + + | Address | [address] | | | [place] [address] | + + + | Home Phone [...] + | Author | [facility] | | | and [place] | + + + | Organization | [facility] | | | and [place] | + + + | Address | Unknown | + + + | Phone | Unavailable | + + + Support + + + + + | Name | Relationship | Address | Phone | + + + + + | Sigrid Lennon | ECON | [address] | | | | | [place] [address] | | + + + + + | Valentín Saleh | ECON | [address] | | | | | [place] [address] | | + + + + + | Roberto Carlos Lennon | LEVI | [place] | | + + + + + Care Team Providers + +------+ + | Care Fence Setter Name | Role | Phone | + +------+ + PCP | Unavailable | + +------+ + Encounter Details +--------+ + + + + | Date | Type | Department | Care Team | Description | +--------+ + + + + | 12/20/ | Hospital | [facility] | | | | 2001 | Encounter | MED [facility] OP | | | | | | [address] | | | | | | [place] | | | | | | [address] | | | | | | [phone] | | | +--------+ + + + [...] | | | | | | [place] [address] | | | | | | [phone] | | | | | | | | +--------+---------+ + + + documented as of this encounter Visit Diagnoses Not on filedocumented in this encounter"
--- OUTSIDE RECORDS SUMMARY | ~2019-09-12 | XMS | Encounter Summary ---
Demographics + + + | Address | [address] | | | [place] [address] | + + + | Home Phone | | + + + | Preferred Language | Unknown | + + + | Marital Status | | + + + | Evangelical Affiliation | Unknown | + + + | Race | Unknown | + + + | Ethnic Group | Unknown | + + + Author + + + | Author | [facility] | | | and Clarkeana | + + + | Organization | [facility] [...] | | | | | [place] [address] | | + + + + + | Valentín Saleh | ECON | [address] | | | | | [place] [address] | | + + + + + | Roberto Carlos Lennon | LEVI | [place] | | + + + + + Care Team Providers + +------+ + | Care Bridal Gown Fitter Name | Role | Phone | + +------+ + PCP | Unavailable | + +------+ + Encounter Details +--------+ + + + + | Date | Type | Department | Care Team | Description | +--------+ + + + + | 01/17/ | Hospital | [facility] | [facility] | | | 1997 | Encounter | MED CTR XRAY [address] | M, DO [address] | | | | | [place] | [address] [place] | | | | | [place] [address] | [place] [address] | | | | | [phone] | | | | | | | [...] | | | | | | [place] [address] | | | | | | [phone] | | | | | | | | +--------+---------+ + + + documented as of this encounter Visit Diagnoses Not on filedocumented in this encounter"
--- OUTSIDE RECORDS SUMMARY | ~2019-09-12 | XMS | Encounter Summary ---
Demographics + + + | Address | [address] | | | [place] [address] | + + + | Home Phone [...] + | Author | [facility] | | | and Clarkeana | + + + | Organization | [facility] [...] | | | | | [place] [address] | | + + + + + | Valentín Saleh | ECON | [address] | | | | | [place] [address] | | + + + + + | Roberto Carlos Lennon | LEVI | Unknown | | + + + + + Care Team Providers + +------+ + | Care Production Quality Manager Name | Role | Phone | + +------+ + | Francois Pascal MD | PCP | | + +------+ + Encounter Details +--------+ + + + + | Date | Type | Department | Care Team | Description | +--------+ + + + + | 12/18/ | Abstract | [facility] | Francois Pascal, | | | 2013 | | MEDICINE [address] | [address] | | | | | [address] [place], | [address] [place], | | | | | [place] [address] | [place] [address] | | | | | [phone] | [phone] | | | | | | | [...] | | | | | | [place] [address] | | | | | | [phone] | | | | | | | | +--------+---------+ + + + documented as of this encounter Procedures + +--------+ + + + | Procedure Name | Priori | Date/Time | Associated Diagnosis | Comments | | | ty | | | | + +--------+ + + + | EXTERNAL LAB: | Routin | 12/04/2013 | | Results for this | | MICROALBUMIN, URINE | e | | | procedure are in the | | | | | | results section. | + +--------+ + + + documented in this encounter Results External Lab: Microalbumin, Urine (12/04/2013) + +-------+ + + + | Component | Value | Ref Range | Performed | Pathologist | | | | | At | Signature | + +-------+ + + + | Microalbumi | 1.4 | | | | | n, Urine, | | | | | | External | | | | | + +-------+ + + + + + | Specimen | + + | Blood specimen | | (specimen) | + + documented in this encounter Visit Diagnoses Not on filedocumented in this encounter"
--- OUTSIDE RECORDS SUMMARY | ~2019-09-12 | XMS | Encounter Summary ---
Demographics + + + | Address | [address] | | | [place] [address] | + + + | Home Phone | | + + + | Preferred Language | Unknown | + + + | Marital Status | | + + + | Mu-Ism Affiliation | Unknown | + + + | Race | Unknown | + + + | Ethnic Group | Unknown | + + + Author + + + | Author | [facility] | | | and Clarkeana | + + + | Organization | [facility] [...] | | | | | [place] [address] | | + + + + + | Valentín Saleh | ECON | [address] | | | | | [place] [address] | | + + + + + | Roberto Carlos Lennon | LEVI | [place] | | + + + + + Care Team Providers + +------+ + | Care Manager Social Responsibility Name | Role | Phone | + +------+ + PCP | Unavailable | + +------+ + Encounter Details +--------+ + + + + | Date | Type | Department | Care Team | Description | +--------+ + + + + | 09/08/ | Hospital | [facility] | Francois Pascal, | | | 2010 | Encounter | MED CTR LABORATORY | [address] | | | | | [address] [place] | [address] [place], | | | | | [place] | [place] [address] | | | | | [address] | [phone] | | | | | [phone] | | | +--------+ + + + [...] | | | | | | [place] [address] | | | | | | [phone] | | | | | | | | +--------+---------+ + + + documented as of this encounter Procedures + +--------+ + + + | Procedure Name | Priori | Date/Time | Associated Diagnosis | Comments | | | ty | | | | + +--------+ + + + | UA, MICROSCOPIC, | Routin | 09/08/2010 | | Results for this | | REFLEX | e | 10:39 AM | | procedure are in the | | | | PDT | | results section. | + +--------+ + + + | URINALYSIS, REFLEX | Routin | 09/08/2010 | | Results for this | | MICROSCOPIC AND/OR | e | 10:39 AM | | procedure are in the | | CULTURE | | PDT | | results section. | + +--------+ + + + | LIPID PROFILE | Routin | 09/08/2010 | | Results for this | | | e | 10:34 AM | | procedure are in the | | | | PDT | | results section. | + +--------+ + + + | CBC WITH | Routin | 09/08/2010 | | Results for this | | DIFFERENTIAL | e | 10:34 AM | | procedure are in the | | | | PDT | | results section. | + +--------+ + + + | HEMOGLOBIN A1C | Routin | 09/08/2010 | | Results for this | | | e | 10:34 AM | | procedure are in the | | | | PDT | | results section. | + +--------+ + + + | COMPREHENSIVE | Routin | 09/08/2010 | | Results for this | | METABOLIC PANEL | e | 10:34 AM | | procedure are in the | | | | PDT | | results section. | + +--------+ + + + documented in this encounter Results UA, Microscopic, Reflex (09/08/2010 10:39 AM PDT) + +-------+ + + + | Component | Value | Ref Range | Performed | Pathologist | | | | | At | Signature | + +-------+ + + + | White Blood | 0-2 | 0 - 1 /hpf | [facility] | | | Cells, | | | [facility] | | | Urine | | | MEDICAL | | | | | | CENTER - | | | | | | LABORATORY | | + +-------+ + + + | Red Blood | NONE | 0 - 4 /hpf | [facility] | | | Cells, | | | [facility] | | | Urine | | | MEDICAL | | | | | | CENTER - | | | | | | LABORATORY | | + +-------+ + + + | Squamous | RARE | FEW /hps | [facility] | | | Epithelial | | | [facility] | | | Cells, | | | MEDICAL | | | Urine | | | CENTER - | | | | | | LABORATORY | | + +-------+ + + + | Bacteria, | NONE | NONE /hpf | [facility] | | | Urine | | | [facility] | | | | | | MEDICAL | | | | | | CENTER - | | | | | | LABORATORY | | + +-------+ + + + | Culture | NO | | [facility] | | | Indicated | | | [facility] | | [...] + | [facility] | [address] | [place] | [phone] | | [facility] | | [address] | | | - LABORATORY | | | | + + + + + | [facility] | [address] | [place], [place] | | | [facility] | | [id number] | | | - LABORATORY | | | | + + + + + Urinalysis, Reflex Microscopic and/or Culture (09/08/2010 10:39 AM PDT) + + + + + + | Component | Value | Ref Range | Performed | Pathologist | | | | | At | Signature | + + + + + + | COLLECTION | CL.CATCH | | [facility] | | | METHOD [...] + + + + | Clarity, | CLEAR | | [facility] | | | Urine [...] + + + + | Specific | 1.020 | 1.001 - 1.030 | [facility] | | | [place], | | | [facility] | | | Urine | | | MEDICAL | | | | | | CENTER - | | | | | | LABORATORY | | + + + + + + | Blood, | NEGATIVE | NEGATIVE | [facility] | [...] + | MICROSCOPIC | YES | | [facility] | | | ? | | | [facility] | | [...] [address] | [place] | [phone] | | [facility] | | [address] | | | - LABORATORY | | | | + + + + + | [facility] | [address] | [place] | | | [facility] | | [address] | | | - LABORATORY | | | | + + + + + Lipid Profile (09/08/2010 10:34 AM PDT) + + + + + + | Component | Value | Ref Range | Performed | Pathologist | | | | | At | Signature | + + + + + + | Triglycerid | 235 (H) | 35 - 160 mg/dL | [facility] | | | es | | | [facility] | | | | | | MEDICAL | | | | | | CENTER - | | | | | | LABORATORY | | + + + + + + | Cholesterol | 141 (L) | 150 - 200 mg/dL | [facility] | | | | | | [facility] | | | | | | MEDICAL | | | | | | CENTER - | | | | | | LABORATORY | | + + + + + + | HDL | 39 | 29 - 89 mg/dL | [facility] | | | | | | [facility] | | | | | | MEDICAL | | | | | | CENTER - | | | | | | LABORATORY | | + + + + + + | LDL, | 55 | <130 mg/dL | [facility] | | | Calculated | | | [facility] | | | | | | MEDICAL | | | | | | CENTER - | | | | | | LABORATORY | | + + + + + + | Chol/HDL | 3.6Comment: | | [facility] | | | Ratio [...] + | [facility] | [address] | [place], [place] | [phone] | | [facility] | | [address] | | | - LABORATORY | | | | + + + + + | [facility] | [address] | [place], [place] | | | [facility] | | [id number] | | | - LABORATORY | | | | + + + + + Comprehensive Metabolic Panel (09/08/2010 10:34 AM PDT) + + + + + + | Component | Value | Ref Range | Performed | Pathologist | | | | | At | Signature | + + + + + + | Glucose | 167 (H) | 70 - 109 mg/dL | [...] + + + + | AST | 31 | 10 - 42 IU/L | [facility] [...] + + + + | Bilirubin | 1.0 | 0.2 - 1.0 mg/dL | [facility] [...] + + + + | Estimated | 43 (L)Comment: For | >60 mL/min/A | [facility] | | | GFR | -Americans, | [...] + + + + | BUN/Creatin | 14.9 | 12 - 20 | [facility] | | | ine Ratio | | | [facility] | | | | | | MEDICAL | | | | | | CENTER - | | | | | | LABORATORY | | + + + + + + | Na | 138 | 136 - 149 mEq/L | [facility] | | | | | [...] + + + | Anion Gap | 12.3 | 6.0 - 17.0 | [facility] | [...] + | [facility] | [address] | [place] | [phone] | | [facility] | | [address] | | | - LABORATORY | | | | + + + + + | [facility] | [address] | [place], [place] | | | [facility] | | [id number] [place] [address] | | | - LABORATORY | | | | + + + + + Hemoglobin A1C (09/08/2010 10:34 AM PDT) + + + + + + | Component | Value | Ref Range | Performed | Pathologist | | | | | At | Signature | + + + + + + | Hemoglobin | 7.8 (H)Comment: | 4.3 - 5.8 % | [...] + | [facility] | [address] | [place], [place] | [phone] | | [facility] | | [address] | | | - LABORATORY | | | | + + + + + | [facility] | [address] | [place], [place] | | | [facility] | | [address] | | | - LABORATORY | | | | + + + + + CBC with Differential (09/08/2010 10:34 AM PDT) + + + + + [...] + + + | Red Blood | 3.81 | 3.70 - 5.20 | [facility] | [...] | | | | gm/dL | [facility] | | | | | | MEDICAL | | | | | | CENTER - | | | | | | LABORATORY | | + + + + + + | Hematocrit | 40.0 | 34.0 - 47.0 % | [facility] | | | | | | [facility] | | | | | | MEDICAL | | | | | | CENTER - | | | | | | LABORATORY | | + + + + + + | MCV | 105.1 (H) | 83.0 - 101.0 fL | [facility] | | | | | | [facility] | | | | | | MEDICAL | | | | | | CENTER - | | | | | | LABORATORY | | + + + + + + | MCH | 36.2 (H) | 28.0 - 35.0 pg | [facility] | | | | | | [facility] | | | | | | MEDICAL | | | | | | CENTER - | | | | | | LABORATORY | | + + + + + + | MCHC | 34.5 | 32.0 - 36.0 | [facility] | [...] + + + + | Platelet | 201 | 140 - 440 K/uL | [facility] | | | Count | | | [facility] | | | | | | MEDICAL | | | | | | CENTER - | | | | | | LABORATORY | | + + + + + + | % | 64.0 | 45 - 75 % | [facility] | | | Neutrophils | | | [facility] | | | | | | MEDICAL | | | | | | CENTER - | | | | | | LABORATORY | | + + + + + + | % | 21.4 | 20 - 45 % | [facility] | | | Lymphocytes | | | [facility] | | | | | | MEDICAL | | | | | | CENTER - | | | | | | LABORATORY | | + + + + + + | % Monocytes | 10.5 | 4 - 12 % | [facility] | | | | | | [facility] | | | | | | MEDICAL | | | | | | CENTER - | | | | | | LABORATORY | | + + + + + + | % | 4.1 | 0 - 5 % | [facility] | | | Eosinophils | | | [facility] | | | | | | MEDICAL | | | | | | CENTER - | | | | | | LABORATORY | | + + + + + + | % Basophils | 0.0 | 0 - 1 % | [facility] | | | | | | [facility] | | | | | | MEDICAL | | | | | | CENTER - | | | | | | LABORATORY | | + + + + + + | Absolute | 7.0 (H) | 1.5 - 6.6 K/uL | [...] + | [facility] | [address] | [place], [place] | [phone] | | [facility] | | [address] | | | - LABORATORY | | | | + + + + + | [facility] | [address] | [place], [place] | | | [facility] | | [id number] [place] [address] | | | - LABORATORY | | | | + + + + + documented in this encounter Visit Diagnoses Not on filedocumented in this encounter"
--- OUTSIDE RECORDS SUMMARY | ~2019-09-12 | XMS | Encounter Summary ---
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 As you know, [...] has been suggested to her by her pharmacy specialist. She has also been tried on a [...] a nondrinker. She is , lives in [place]. Her ECOG performance status is 1. On [...] to her progress. Sincerely, Fabio Blankenship M.D. [facility] / [place] [id number] / [id number] / [id number] / documented i n this encounter Plan of Treatment Not on filedocumented as of this encounter Visit Diagnoses Not on filedocumented in this encounter"
--- OUTSIDE RECORDS SUMMARY | ~2019-09-12 | XMS | Encounter Summary ---
Demographics + + + | Address | [address] | | | [place] [address] | + + + | Home Phone [...] Author | [facility] | | | and Clarkeana | + + + | Organization | [facility] | [...] | | | | | [place] [address] | | + + + + + | Valentín Saleh | ECON | [address] | | | | | [place] [address] | | + + + + + | Roberto Carlos Lennon | LEVI | Unknown | | + + + + + Care Team Providers + +------+ + | Care Pipe Buffer Name | Role | Phone | + +------+ + | Francois Pascal MD | PCP | | + +------+ + Reason for Visit + + + | Reason | Comments | + + + | Re-Assessment/ | | | Significant Change | | | Assessment | | + + + Evaluate [...] | instability | [address] [place] | | | | n | [address] | [place], | | | | | (ICD-10-CM) | [place] | [place] [address] | | | | | - [address] | [place] | Phone: | | | | | (ICD-9-CM) - | [address] | [phone] | | | | | Gait | Phone: | Fax: | | | | | instability | [phone] | [phone] | | | | | Procedures | Fax: | | | | | | pt eval | [phone] | | +--------+ + + + + + Encounter Details +--------+---------+ + + + | Date | Type | Department | Care Team | Description | +--------+---------+ + + + | 02/13/ | Office | [facility] | Francois Pascal, | Impaired functional | | 2015 | Visit | MED CTR THERAPY PT | MD [address] | mobility, balance, | | | | OP [address] | [address] [place], | gait, and endurance | | | | [place], [place] | [place] [address] | (Primary Dx); | | | | [address] | [phone] | Posture imbalance; | | | | [phone] | | Left ankle pain | | | | | Kely Quinn, PT | | | | | | [address] | | | | | | [place] | | | | | | [address] | | | | | | | [...] encounter Progress Notes Kely Green, PT - 02/13/2015 1:25 PM PSTFormatting of this note might be different from t he original. Physical Therapy Plan of Care Date: 02/13/2015 Patient Name: Alyson Lennon Date of : 1930 Encounter Diagnoses Code Name Primary? Z74.09 Impaired functional mobility, balance, gait, and endurance Yes R29.3 Posture imbalance M25.572 Left ankle pain Date of Onset: 10/24/2014 Start of Care Date: 12/24/2014 Clinical Impression: Alyson Lennon has been participating in therapy for treatment of pe rsistent and progressive left ankle pain and balance/gait. Patient demonstrates objective im provements with strength, ROM and balance. Alyson Lennon continues to have impairments wi th left ankle ROM and activity tolerance and balance when fatigued which are affecting her a bility to complete functional tasks such as ADL's/IADL's and household duties. Patient requi res continued skilled therapy services to achieve the following updated functional goals. Goals: Outcome Specific Scored Goals Patient's Primary Functional Goal 1: Improve DGI score from 10/28 to >16 to reduce risk o f falls and increase functional mobility allowing for improved ability to complete ADL activ ities. 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 Primary Functional Goal 3 Status Comment: progressing OP PT Goals Goal 1: Patient will be Independent in a home exercise program to address symptoms of weakn ess/imbalance to decrease fall risk and improve ability to perform ADL's. Goal 1 Status: progressing PT G-Codes Functional Assessment Tool Used: DGI Score: Functional Limitation: Mobility: Walking and moving around Mobility: Walking and Moving Around Current Status (G8978): At least 20 percent but less th an 40 percent impaired, limited or restricted Mobility: Walking and Moving Around Goal Status (G8979): At least 20 percent but less than 40 percent impaired, limited or restricted Treatment Plan/Interventions: 26526 - PT Evaluation 23534 - PT Re-Evaluation 76827 - Therapeutic Exercise 40606 - Neuromuscular Reeducation 72771 - Gait Training 34691 - Therapeutic Activities 27736 - Manual Therapy 00685 - Self Care/Home Management Requested # of Visits: 24 2x/week for 12 weeks Certification From: 02/13/2015 Certification To: 05/08/2015 Electronically signed by: Kely Green PT, 02/13/2015 13:25 Patient Name: Alyson Lennon/: 1930/ Kely Ryan PT - 02/13/2015 8:24 AM PST [facility] THERAPY PT OP [address] [place] [address] Physical Therapy Progress Assessment Date: 02/13/2015 Patient Information Patient Name: Alyson Lennon Date of : 1930 Age: 84 y.o. Encounter Diagnoses Code Name Primary? Z74.09 Impaired functional mobility, balance, gait, and endurance Yes R29.3 Posture imbalance M25.572 Left ankle pain Date of Onset: 10/24/2014 Referring Provider: Francois Pascal MD Rehab Precautions Office Visit from 12/24/2014 in [facility] THERAPY PT OP Rehab Precautions Precautions Comments fall risk Pain Assessment: Pain Scale Used: NUMERIC Pain Rating Pre Assessment: 5 Pain Rating Post Assessment: 2 Location: left ankle/heel SUBJECTIVE: Alyson Lennon has completed 9 visits for treatment of persistent and progress geovany left ankle pain and balance/gait. Patient reports improvements with left ankle pain and overall improved balance/activity tolerance. However pt reports that about two weeks ago she had a fall; reported that she stepped backwards and lost her balance and landed on her back and hit her head. Pt reports no serious injury just really sore and did not seek any medica l attention. Continues to rely on 4WW for transfers/gait. OBJECTIVE: Observation/Posture/Alignment/Gait: 4WW, improved gait pattern due to increased left ankle ROM; equal step length/stance time. Continues to have decreased toe-off on left. Functional Movements: Initial Assessment Progress Note / Discharge Sit<>Stand: Dysfunctional, heavy use of UE, leans right Dysfunctional, slight lean to right Sit<>Supine: dysfunctional normal Double Leg Squat: Dysfunctional, quad dominant/medial collapse Fair, cont. To have medial c ollapse Single Leg Calf Raise: L= unable R= unable NT Single Leg Balance: L= unable R= unable NT Initial Assessment Initial Assessment Progress Note / Discharge Progress Note / Discharge Left Right Left Right Cervical ROM WFL WFL WFL WFL Sensation: intact intact intact intact Neurovascular: normal normal normal Cerebellar Function /Coordination: Left Right Left Right Finger to nose intact intact intact intact Heel to meeks intact intact intact intact Ankle ROM: Left Right Left Right Dorsi Flexion: 0 deg 0-15 0-11 deg 0-15 deg Plantar Flexion: 0-10 0-35 deg 0-10 0-35 Inversion: 0-10 0-20 0-10 0-20 Eversion: 0-5 0-10 0-5 0-10 Strength: Initial Assessment Initial Assessment Progress Note / Discharge Progress Note / D ischarge Left Right Left Right Upper Extremity 4/5 4+/5 4/5 4+/5 Iliopsoas (L1,L2): 4/5 4+/5 4/5 4+/5 Quadriceps (L3): 4/5 4+/5 4/5 4+/5 Ankle DF (L4): 4/5 4+/5 4/5 4+/5 Great Toe Ext (L5): 4/5 4+/5 4/5 4+/5 Glute Med (L5): 4-/5 4/5 4/5 4/5 Ankle PF (S1): 4/5 4+/5 4/5 4+/5 Ankle Eversion (S1): 4/5 4/5 4/5 4+/5 Hamstrings (S2): 4/5 4/5 4/5 4+/5 Lumbo-Pelvic Stabilizers: impaired fair Paraspinals: impaired fair Outcome Measure: Initial Assessment Progress Note / Discharge Dynamic Gait Index 10/28 (<19= predictive of falls in elderly) (<19= predictive of fal ls in elderly) [...] closed/foam surface):25 seconds Assessment Alyson Lennon has been participating in therapy for treatment of persistent and progressi ve left ankle pain and balance/gait. Patient demonstrates objective improvements with streng th, ROM and balance. Alyson Lennon continues to have impairments with left ankle ROM and activity tolerance and balance when fatigued which are affecting he r ability to complete functional tasks such as ADL's/IADL's and household duties. Patient re quires continued skilled therapy services to achieve the following updated functional goals. Rehabilitation potential: Patient demonstrates good potential to achieve established goals to address the documented impairments by participating in skilled physical therapy services. Goals: Outcome Specific Scored Goals Patient's Primary Functional Goal 1: Improve DGI score from 10/28 to > to reduce risk o f falls and increase functional mobility allowing for improved ability to complete ADL activ ities. 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 Primary Functional Goal 3 Status Comment: progressing OP PT Goals Goal 1: Patient will be Independent in a home exercise program to address symptoms of weakn ess/imbalance to decrease fall risk and improve ability to perform ADL's. Goal 1 Status: progressing PT G-Codes Functional Assessment Tool Used: DGI Score: Functional Limitation: Mobility: Walking and moving around Mobility: Walking and Moving Around Current Status (G8978): At least 20 percent but less th an 40 percent impaired, limited or restricted Mobility: Walking and Moving Around Goal Status (G8979): At least 20 percent but less than 40 percent impaired, limited or restricted Plan Date of Onset: 10/24/2014 Start of Care Date: 12/24/2014 Requested # of Visits: 24 2x/week for 12 weeks Certification From: 02/13/2015 Certification To: 05/08/2015 Treatment Plan/Interventions 44990 - PT Evaluation 83928 - PT Re-Evaluation 76246 - Therapeutic Exercise 09233 - Neuromuscular Reeducation 51560 - Gait Training 58515 - Therapeutic Activities 76734 - Manual Therapy 74744 - Self Care/Home Management Patient and/or family has indicated understanding of treatment needs and actively participa rachel in the creation of this plan for care. Today's Treatment Start Time: 814 Stop time: 0900 Duration: 45 minutes Timed Treatment Codes: 45 minutes # of PT Visits: 9 Objective: Manual therapy: grade III-IV mobs to left ankle/foot to increase ROM. Next Visit: Cont to progress ROM, strength, balance and gait. Electronically signed by: Kely Green PT, 02/13/2015 13:24 Patient Name: Alyson Lennon/: 1930/ [facility] Plan of Treatment +--------+---------+ + + + | Date | Type | Specialty | Care Team | Description | +--------+---------+ + + + | 12/06/ | Office | Cardiology | Stephenie Paul, | | | 2019 | Visit | | MD Bob Sheehan | | | | | | [place], | | | | | | [place] [address] | | | | | | [phone] | | | | | | | [...]
--- OUTSIDE RECORDS SUMMARY | ~2019-09-12 | XMS | Encounter Summary ---
Demographics + + + | Address | [address] | | | [place] [address] | + + + | Home Phone [...] | Author | [facility] | | | and [place]ana | + + + | Organization | [facility] | | [...] | | | | | [place] [address] | | + + + + + | Valentín Saleh | ECON | [address] | | | | | [place] [address] | | + + + + + | Roberto Carlos Lennon | LEVI | Unknown | | + + + + + Care Team Providers + +------+ + | Care Lab Assistant Name | Role | Phone | + +------+ + | Francois Pacsal MD | PCP | | + +------+ + Reason for Visit + + + | Reason | Comments | + + + | Follow-up | | + + + Encounter Details +--------+---------+ + + + | Date | Type | Department | Care Team | Description | +--------+---------+ + + + | 11/11/ | Office | [facility] | Francois Pascal, | Primary | | 2017 | Visit | MEDICINE [address] | [address] | osteoarthritis of | | | | [address] [place], | [address] [place], | left ankle (Primary | | | | [place] [address] | [place] [address] | Dx); Impaired | | | | [phone] | [phone] | functional mobility, | | | | [...] less confused. There is no burning with [employer]. Pt denies any confusion. Her states her confusion is a little better. She seems less angry. She is still in [facility] and is fine with living there although she would like to go home . Left hip fracture, S/p fall / with rodding per Dr Barbosa. 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 Social History: Born in [facility] for [facility] years. and Remarried [...] of her without assistance. 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 I certainly think she is safe to [...] 2019 | Visit | | MD [facility] | | | | | | [place], | | | | | | [place] [address] | | | | | | [phone] | | | | | | | [...]
--- OUTSIDE RECORDS SUMMARY | ~2019-09-12 | XMS | Encounter Summary ---
Demographics + + + | Address | [address] | | | [place] [address] | + + + | Home Phone | | + + + | Preferred Language | Unknown | + + + | Marital Status | | + + + | Yazidism Affiliation | Unknown | + + + | Race | Unknown | + + + | Ethnic Group | Unknown | + + + Author + + + | Author | [facility] | | | and Clarkeana | + + + | Organization | [facility] | | [...] | | | | | [place] [address] | | + + + + + | Valentín Saleh | ECON | [phone] | | | | | [place] [address] | | + + + + + | Roberto Carlos Lennon | LEVI | [place] | | + + + + + Care Team Providers + +------+ + | Care Hairspring Setter Name | Role | Phone | + +------+ + PCP | Unavailable | + +------+ + Encounter Details +--------+ + + + + | Date | Type | Department | Care Team | Description | +--------+ + + + + | 04/29/ | Hospital | [facility] | Mauricio Rider | | | 2010 | Encounter | MED CTR LABORATORY | MD [place] [address] [place] [address] | | | | | [address] | [place] | | | | | [place] | [id number] | | | | | [address] | | | | | | [phone] | | | +--------+ + + + [...] | | | | | | [place] [address] | | | | | | [phone] | | | | | | | | +--------+---------+ + + + documented as of this encounter Visit Diagnoses Not on filedocumented in this encounter"
--- OUTSIDE RECORDS SUMMARY | ~2019-09-12 | XMS | Encounter Summary ---
Demographics + + + | Address | [address] | | | [place] [address] | + + + | Home Phone | | + + + | Preferred Language | Unknown | + + + | Marital Status | | + + + | Caodaism Affiliation | Unknown | + + + | Race | Unknown | + + + | Ethnic Group | Unknown | + + + Author + + + | Author | [facility] | | | and Clarkeana | + + + | Organization | [facility] | [...] | | | | | [place] [address] | | + + + + + | Valentín Saleh | ECON | [address] | | | | | [place] [address] | | + + + + + | Roberto Carlos Lennon | LEVI | Unknown | | + + + + + Care Team Providers + +------+ + | Care Clinic Licensed Practical Nurse Name | Role | Phone | + +------+ + | Francois Pascal MD | PCP | | + +------+ + Reason for Visit + +--------+ + | Reason | Onset | Comments | | | Date | | + +--------+ + | Medication Prior | 01/17/ | Methotrexate | | Authorization | 2013 | | + +--------+ + Encounter Details +--------+ + + + + | Date | Type | Department | Care Team | Description | +--------+ + + + + | 01/17/ | Telephone | [facility] | Francois Pascal, | Medication Prior | | 2013 | | MEDICINE [address] | [address] | Authorization | | | | [address] [place], | [address] [place], | (Methotrexate ) | | | | [place] [address] | [place] [address] | | | | | [phone] | [phone] | | | | | | | [...] Telephone Encounter - Ameena Coleman RN - 01/17/2014 12:50 PM PSTReceived fax document M maydaexate was approved effective dates 01/14/14-01/14/15 documented in this encounter Plan of Treatment +--------+---------+ + + + | Date | Type | Specialty | Care Team | Description | +--------+---------+ + + + | 12/06/ | Office | Cardiology | Stephenie Paul, | | | 2019 | Visit | | MD Bob Sheehan | | | | | | [place], | | | | | | [place] [address] | | | | | | [phone] | | | | | | | | +--------+---------+ + + + documented as of this encounter Visit Diagnoses Not on filedocumented in this encounter"
--- OUTSIDE RECORDS SUMMARY | ~2019-09-12 | XMS | Encounter Summary ---
Demographics + + + | Address | [address] | | | [place] [address] | + + + | Home Phone [...] Author | [facility] | | | and Clarkeana | + + + | Organization | [facility] | | [...] | | | | | [place] [address] | | + + + + + | Valentín Saleh | ECON | [address] | | | | | [place] [address] | | + + + + + | Roberto Carlos Lennon | LEVI | Unknown | | + + + + + Care Team Providers + +------+ + | Care Inner Diameter Grinder Tool Name | Role | Phone | + +------+ + | Francois Pascal MD | PCP | | + +------+ + Encounter Details +--------+ + + + + | Date | Type | Department | Care Team | Description | +--------+ + + + + | 06/08/ | Hospital | [facility] | [place], | | | 2011 | Encounter | MED CTR XRAY [address] | Kemar Wilson KEYBOARD OPERATOR [address] | | | | | [place] | [facility] | | | | | [place] [address] | [address] [place] | | | | | [phone] | [address] | | | | | [...] | | | | | | [place] [address] | | | | | | [phone] | | | | | | | [...] Performed At | + + + | [facility] Diagnostic Imaging Department | [facility] | | [address] [facility] | [facility] | | RENAL ULTRASOUND, 06/09/2011 | DIAG [...] Transcribed | | | Date/Time: 06/09/2011 15:32 Pig Conveyor Operator: | | | <Electronically Signed by Benedict Vigil MD> 06/09/11 2241 | | + + + + + | Procedure Note | + + | Al, Rad Conversion - 04/13/2013 5:03 PM [facility] | | Diagnostic Imaging Department [address] [place] [address] | | RENAL ULTRASOUND, 06/09/2011 CLINICAL HISTORY: [...] 15:00 | |Transcribed Date/Time: 06/09/2011 15:32 | |Pig Conveyor Operator: | |<Electronically Signed by Benedict Vigil MD> 06/09/112240 | + + + +---------+ + + | Performing | Address | City/State/Zipcode | Phone Number | | Organization | | | | + +---------+ + + | [place] | | | | | [place] | | | | + +---------+ + + documented in this encounter Visit Diagnoses Not on filedocumented in this encounter"
--- OUTSIDE RECORDS SUMMARY | ~2019-09-12 | XMS | Encounter Summary ---
Demographics + + + | Address | [address] | | | [place] [address] | + + + | Home Phone [...] Author | [facility] | | | and [place]ana | + + + | Organization | [facility] | | | and [...] | | | | | [place] [address] | | + + + + + | Valentín Saleh | ECON | [address] | | | | | [place] [address] | | + + + + + | Roberto Carlos Lennon | LEVI | Unknown | | + + + + + Care Team Providers + +------+ + | Care General Doc Name | Role | Phone | + [...] | 09/12/ | Refill | [facility] | Francois Pascal, | Medication Refill | | 2012 | | MEDICINE [place] | [address] | | | | | [address] | [address] [place], | | | | | [place] | [place] [address] | | | | | [address] | [phone] | | | | | [phone] | | | +--------+--------+ + + + [...] | | | | | | [place] [address] | | | | | | [phone] | | | | | | | | +--------+---------+ + + + documented as of this encounter Visit Diagnoses Not on filedocumented in this encounter"
--- OUTSIDE RECORDS SUMMARY | ~2019-09-12 | XMS | Encounter Summary ---
Demographics + + + | Address | [address] | | | [place] [address] | + + + | Home Phone | | + + + | Preferred Language | Unknown | + + + | Marital Status | | + + + | Nondenominational Affiliation | Unknown | + + + | Race | Unknown | + + + | Ethnic Group | Unknown | + + + Author + + + | Author | [facility] | | | and [place]ana | + + + | Organization | [facility] | | [...] | | | | | [place] [address] | | + + + + + | Valentín Saleh | ECON | [address] | | | | | [place] [address] | | + + + + + | Roberto Carlos Lennon | LEVI | Unknown | | + + + + + Care Team Providers + +------+ + | Care Media Manager Name | Role | Phone | [...] + | 04/03/ | Refill | [facility] | Francois Pascal, | Medication Refill | | 2012 | | [facility] | [address] | | | | | [address] | [address] [place], | | | | | [place] | [place] [address] | | | | | [address] | [phone] | | | | | [phone] | | | +--------+--------+ + + + [...] this encounter Miscellaneous Notes Telephone Encounter - Alejandra Steele RN - 04/03/2012 2:15 PM PST06/28/12 next appointmen t No protocol Ok to fill? Thank you documented in this encounter Plan of Treatment +--------+---------+ + + + | Date | Type | Specialty | Care Team | Description | +--------+---------+ + + + | 12/06/ | Office | Cardiology | Stephenie Paul, | | | 2019 | Visit | | MD Bob Sheehan | | | | | | [place], | | | | | | [place] [address] | | | | | | [phone] | | | | | | | | +--------+---------+ + + + documented as of this encounter Visit Diagnoses Not on filedocumented in this encounter"
--- OUTSIDE RECORDS SUMMARY | ~2019-09-12 | XMS | Encounter Summary ---
Demographics + + + | Address | [address] | | | [place] [address] | + + + | Home Phone [...] Author | [facility] | | | and Clarkeana | + + + | Organization | [facility] | [...] | | | | | [place] [address] | | + + + + + | Valentín Saleh | ECON | [address] | | | | | [place] [address] | | + + + + + | Roberto Carlos Lennon | LEVI | [place] | | + + + + + Care Team Providers + +------+ + | Care Truck Loader And Unloader Name | Role | Phone | + +------+ + PCP | Unavailable | + +------+ + Encounter Details +--------+ + + + + | Date | Type | Department | Care Team | Description | +--------+ + + + + | 09/09/ | Hospital | [facility] | | | | 2006 | Encounter | MED CTR LABORATORY | | | | | | [address] [place] | | | | | | [place] | | | | | | [address] | | | | | | [phone] | | | +--------+ + + + [...] | | | | | | [place] [address] | | | | | | [phone] | | | | | | | | +--------+---------+ + + + documented as of this encounter Visit Diagnoses Not on filedocumented in this encounter"
--- OUTSIDE RECORDS SUMMARY | ~2019-09-12 | XMS | Encounter Summary ---
Demographics + + + | Address | [address] | | | [place] [address] | + + + | Home Phone [...] Author | [facility] | | | and Clarkeana | + + + | Organization | [facility] | [...] | | | | | [place] [address] | | + + + + + | Valentín Saleh | ECON | [phone] | | | | | [place] [address] | | + + + + + | Roberto Carlos Lennon | LEVI | Unknown | | + + + + + Care Team Providers + +------+ + | Care Ed Educational Aide Name | Role | Phone | + +------+ + | Francois Pascal MD | PCP | | + +------+ + Encounter Details +--------+ + + + + | Date | Type | Department | Care Team | Description | +--------+ + + + + | 05/24/ | Hospital | [facility] | Francois Pascal, | | | 2011 | Encounter | MED CTR LABORATORY | [address] | | | | | [address] | [address] [place], | | | | | [place] | [place] [address] | | | | | [address] | [phone] | | | | | [phone] | | | +--------+ + + + [...] | | | | | | [place] [address] | | | | | | [phone] | | | | | | | | +--------+---------+ + + + documented as of this encounter Procedures + +--------+ + + + | Procedure Name | Priori | Date/Time | Associated Diagnosis | Comments | | | ty | | | | + +--------+ + + + | UA, MICROSCOPIC, | Routin | 05/25/2011 | | Results for this | | REFLEX | e | 9:19 AM | | procedure are in the | | | | PDT | | results section. | + +--------+ + + + | URINALYSIS, REFLEX | Routin | 05/25/2011 | | Results for this | | MICROSCOPIC AND/OR | e | 9:19 AM | | procedure are in the | | CULTURE | | PDT | | results section. | + +--------+ + + + documented in this encounter Results UA, Microscopic, Reflex (05/25/2011 9:19 AM PDT) + + + + + [...] Red Blood | 0-2 | 0 - 4 /hpf | [facility] [...] + + + + | Bacteria, | RARE | NONE /hpf | [facility] | | | Urine | | | [facility] | | | | | | [facility] | | | | | | C[facility] - | | | | | | LABORATORY | | + + + + + + | Hyaline | MODERATE | 0 - 1 /lpf | [facility] | | | Casts, | | | [facility] | | | Urine | | | MEDICAL | | | | | | CENTER - | | | | | | LABORATORY | | + + + + + + | Culture | NO [...] + | [facility] | [address] | [place], [place] | [phone] | | [facility] | | [address] | | | - LABORATORY | | | | + + + + + | [facility] | [address] | [place], [place] | | | [facility] | | [address] [place] [address] | | | - LABORATORY | | | | + + + + + Urinalysis, Reflex Microscopic and/or Culture (05/25/2011 9:19 AM PDT) + + + + + [...] - 1.030 | [facility] | | | Christine, | | | [facility] | | [...] + | [facility] | [address] | [place], [place] | [phone] | | [facility] | | [address] | | | - LABORATORY | | | | + + + + + | [facility] | [address] | [place], [place] | | | [facility] | | [id number] | | | - LABORATORY | | | | + + + + + documented in this encounter Visit Diagnoses Not on filedocumented in this encounter"
--- OUTSIDE RECORDS SUMMARY | ~2019-09-12 | XMS | Encounter Summary ---
Demographics + + + | Address | [address] | | | [place] [address] | + + + | Home Phone [...] Author | [facility] | | | and [place] | + + + | Organization | [facility] | | [...] | | | | | [place] [address] | | + + + + + | Valentín Saleh | ECON | [id number] | | | | | [place] [address] | | + + + + + | Roberto Carlos Lennon | LEVI | [place] | | + + + + + Care Team Providers + +------+ + | Care Rewinder Operator Helper Name | Role | Phone | + +------+ + PCP | Unavailable | + +------+ + Encounter Details +--------+ + + + + | Date | Type | Department | Care Team | Description | +--------+ + + + + | 06/01/ | Hospital | [facility] | | | | 1996 - | Encounter | MED CTR ICU [address] | | | | | | [place], | | | | 06/02/ | | [place] [address] | | | | 1996 | | [phone] | | | +--------+ + + + [...] | | | | | | [place] [address] | | | | | | [phone] | | | | | | | | +--------+---------+ + + + documented as of this encounter Visit Diagnoses Not on filedocumented in this encounter"
--- OUTSIDE RECORDS SUMMARY | ~2019-09-12 | XMS | Encounter Summary ---
Demographics + + + | Address | [address] | | | [place] [address] | + + + | Home Phone [...] | [facility] | | | and [place] | + + + | Organization | [facility] | | [...] | | | | | [place] [address] | | + + + + + | Valentín Saleh | ECON | [phone] | | | | | [place] [address] | | + + + + + | Roberto Carlos Lennon | LEVI | Unknown | | + + + + + Care Team Providers + +------+ + | Care Power Plant Installer Name | Role | Phone | + +------+ + | Francois Pascal MD | PCP | | + +------+ + Reason for Visit + +--------+ + | Reason | Onset | Comments | | | Date | | + +--------+ + | Medication Refill | 06/13/ | | | | 2012 | | + +--------+ + Encounter Details +--------+--------+ + + + | Date | Type | Department | Care Team | Description | +--------+--------+ + + + | 06/13/ | Refill | [facility] | [place], | Medication Refill | | 2012 | | NEPHROLOGY [address] | [address] | | | | | [facility] [address] | [address] [facility] | | | | | [place], [place] | [address] | | | | | [address] | [address] | | | | | [phone] | | | +--------+--------+ + + + [...] | | | | | | [place] [address] | | | | | | [phone] | | | | | | | | +--------+---------+ + + + documented as of this encounter Visit Diagnoses Not on filedocumented in this encounter"
--- OUTSIDE RECORDS SUMMARY | ~2019-09-12 | XMS | Encounter Summary ---
Demographics + + + | Address | [address] | | | [place] [address] | + + + | Home Phone [...] | Author | [facility] | | | and [place] | + + + | Organization | [facility] | | [...] | | | | | [place] [address] | | + + + + + | Valentín Saleh | ECON | [address] | | | | | [place] [address] | | + + + + + | Roberto Carlos Lennon | LEVI | Unknown | | + + + + + Care Team Providers + +------+ + | Care Tennis Racket Repairer Name | Role | Phone | [...] | disease, | AVE [address] | MANAGEMENT TECH [address] | | | | | stage III | [place] | [address] | | | | | (moderate) | [place], [place] | [address] | | | | | (HCC) | [address] | [place], | | | | | Unspecified | Phone: | [place] [address] | | | | | hypertensive | [phone] | Phone: | | | | | kidney | Fax: | [phone] | | | | | disease with | [phone] | Fax: | | | | | chronic | | [phone] | | | | | kidney | [...] | | | | | | | [place] OFFICE | | | | | | [...] | (MODERATE) (Primary | | | | [place], [place] | [address] [place], [place] | Dx); HTN CKD UNS | | | | [address] | [address] | W/CKD STAGE I THRU | | | | [phone] | | STAGE IV/UNS; DM | | [...] 12/06/2013 PCP: Dr. Francois Pascal HPI: Alyson eLnnon is a 82 y.o. female following up [...] DM type 2 (diabetes mellitus, type 2) (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) (1994&1996) CAR with Hx of Myocardial infarction Other abnormal clinical finding Verebral Compression Fractures Glossitis CAD (coronary artery disease) CHF (congestive heart failure) ([facility]) Arthritis Old [place] (myocardial infarction) ([facility]) Carotid stenosis H/O ventricular septal defect repair DVT (deep vein thrombosis) in Chronic kidney disease, stage III (moderate) ([facility]) Vitamin D deficiency Gout Osteoporosis [...] above goal. Pt is following up with copy reader and I encouraged her to discu ss [...] of above plan. CC:Dr. Francois Pascal docunara roman this encounter Plan of Treatment +--------+---------+ + + + | Date | Type | Specialty | Care Team | Description | +--------+---------+ + + + | 12/06/ | Office | Cardiology | Stephenie Paul, | | | 2019 | Visit | | MD [address] | | | | | | [place], | | | | | | [place] [address] | | | | | | [phone] | | | | | | | [...]
--- OUTSIDE RECORDS SUMMARY | ~2019-09-12 | XMS | Encounter Summary ---
Demographics + + + | Address | [address] | | | [place] [address] | + + + | Home Phone [...] | Author | [facility] | | | and [place] | + + + | Organization | [facility] | [...] | | | | | [place] [address] | | + + + + + | Valentín Saleh | ECON | [phone] | | | | | [place] [address] | | + + + + + | Roberto Carlos Lennon | LEVI | Unknown | | + + + + + Care Team Providers + +------+ + | Care Goodwill Ambassador Name | Role | Phone | + +------+ + | Francois Pascal MD | PCP | | + +------+ + Encounter Details +--------+ + + + + | Date | Type | Department | Care Team | Description | +--------+ + + + + | 03/22/ | Hospital | [facility] | Francois Pascal, | | | 2011 | Encounter | MED CTR LABORATORY | [address] | | | | | [address] | [address] [place], | | | | | [place] | [place] [address] | | | | | [address] | [phone] | | | | | [phone] | | | +--------+ + + + [...] | | | | | | [facility] [place], | | | | | | [place] [address] | | | | | | [phone] | | | | | | | [...] + | [facility] | [address] | [place], [place] | [phone] | | [facility] | | [address] | | | - LABORATORY | | | | + + + + + | [facility] | [address] | [place], [place] | | | [facility] | | [address], [facility] | | | - LABORATORY | [...] ST. | [address] | [place] | [phone] | | [facility] | | [address] | | | - LABORATORY | | | | + + + + + | [facility] | [address] | [place] | | | [facility] | | [address] [place] [address] | | | - LABORATORY | | | | + + + + + documented in this encounter Visit Diagnoses Not on filedocumented in this encounter"
--- OUTSIDE RECORDS SUMMARY | ~2019-09-12 | XMS | Encounter Summary ---
Demographics + + + | Address | [address] | | | [place] [address] | + + + | Home Phone | | + + + | Preferred Language | Unknown | + + + | Marital Status | | + + + | Evangelical Affiliation | Unknown | + + + | Race | Unknown | + + + | Ethnic Group | Unknown | + + + Author + + + | Author | [facility] | | | and [place]ana | + + + | Organization | [facility] | | | and [...] | | | | | [place] [address] | | + + + + + | Valentín Saleh | ECON | [phone] | | | | | [place] [address] | | + + + + + | Roberto Carlos Lennon | LEVI | Unknown | | + + + + + Care Team Providers + +------+ + | Care Distribution Specialist Name | Role | Phone | + +------+ + | Francois Pascal MD | PCP | | + +------+ + Reason for Visit + + + | Reason | Comments | + + + | Follow-up | | + + + | Results | review labs | + + + Encounter Details +--------+---------+ + + + | Date | Type | Department | Care Team | Description | +--------+---------+ + + + | 09/27/ | Office | [facility] | Francois Pascal, | DM (diabetes | | 2015 | Visit | MEDICINE [address] [place] [address] | [address] | mellitus) (Primary | | | | [address] [place], | [address] [place], | Dx); CHRONIC KIDNEY | | | | [place] [address] | [place] [address] | DISEASE STAGE III | | | | [phone] | [phone] | (MODERATE) | | | | | | | [...] + + + | Blood Pressure | 118/60 | 09/27/2014 11:21 AM | | | | | PDT | | + + + + + | Pulse | 61 | 09/27/2014 11:21 AM | | | | | PDT | | + + + + + | Temperature | 36.9 C (98.4 F) | 09/27/2014 11:21 AM | | | | | PDT | | + + + + + | Respiratory Rate | 14 | 09/27/2014 11:21 AM | | | | | PDT | | + + + + + | Oxygen Saturation | 96% | 09/27/2014 11:21 AM | | | | | PDT | | + + + + + | Inhaled Oxygen | - | - | | | Concentration | | | | + + + + + | Weight | 74.8 kg (165 lb) | 09/27/2014 11:21 AM | | | | | PDT | | + + + + + | Height | 162.6 cm (5' 4") | 09/27/2014 11:21 AM | | | | | PDT | | + + + + + | Body Mass Index | 28.32 | 09/27/2014 11:21 AM | | | | | PDT | | + + + + + documented in this encounter Progress Notes Francois Pascal MD - 09/27/2014 11:27 AM PDTFormatting of this note might be different f rom the original. Subjective: Patient ID: Alyson Lennon is a 83 y.o. female. HPI DM2 she is on lantus 130 nightly, and Novolog, 30 for B, 30 L and 30 for dinner. and J anuvia (she understands the risk with this). She notices that her glucoses are high occasi onally. Rarely as high as 250 prior to a meal. In the morning is runs in the 70-150 in the morning. She is compliant with her medications, she denies polyuria, polydipsia or polyph agia, She admits to having the right diet. She declines further dietary consult. She tri es to watch her diet "with every bit she takes". CKD, She urinates normally. There is no blood in her urine, She feels as though she drink s plenty of fluids. She follows with Kemar Mcclelland. She sees nephrology next month. Past Medical History: Reviewed history from 06/24/2011 [...] VSD Father 50 Pneumonia Family Hx of Evans's chorea Sister and 2 brothers: CAD, Airam's [...] gross lesions Assessment: 1. DM (diabetes mellitus) CBC with Differential Comprehensive Metabolic Panel Hemoglobin A1C 2. CHRONIC KIDNEY DISEASE STAGE III (MODERATE) Comprehensive Metabolic Panel Plan: Discussed new lab results. Her GFR and A1C get worse, We have recently adjusted insulin u pward and she seems to be doing fine with this. RTC 3 months with labs prior. Otherwise co ntinue current medical regimen. documented in this encounter Plan of Treatment +--------+---------+ + + + | Date | Type | Specialty | Care Team | Description | +--------+---------+ + + + | 12/06/ | Office | Cardiology | Stephenie Paul, | | | 2019 | Visit | | MD [address] [place] | | | | | | [place], | | | | | | [place] [address] | | | | | | [phone] | | | | | | | | +--------+---------+ + + + documented as of this encounter Visit Diagnoses + + | Diagnosis | + + | DM (diabetes mellitus) - Primary Type II or unspecified type diabetes mellitus | | without mention of complication, not stated as uncontrolled | + + | CHRONIC KIDNEY DISEASE STAGE III (MODERATE) Chronic kidney disease, Stage III | | (moderate) | + + documented in this encounter
--- OUTSIDE RECORDS SUMMARY | ~2019-09-12 | XMS | Encounter Summary ---
Demographics + + + | Address | [address] | | | [place] [address] | + + + | Home Phone [...] | [facility] | | | and [place] | + + + | Organization | [facility] | [...] | | | | | [place] [address] | | + + + + + | Valentín Saleh | ECON | [address] | | | | | [place] [address] | | + + + + + | Roberto Carlos Lennon | LEVI | [place] | | + + + + + Care Team Providers + +------+ + | Care De Alcholizer Name | Role | Phone | + +------+ + PCP | Unavailable | + +------+ + Encounter Details +--------+ + + + + | Date | Type | Department | Care Team | Description | +--------+ + + + + | 07/30/ | Hospital | [facility] | | | | 2003 | Encounter | MED CTR MP INTRA OP | | | | | | [address] | | | | | | [place] | | | | | | [address] | | | | | | [phone] | | | +--------+ + + + [...] | | | | | | [place] [address] | | | | | | [phone] | | | | | | | | +--------+---------+ + + + documented as of this encounter Visit Diagnoses Not on filedocumented in this encounter"
--- OUTSIDE RECORDS SUMMARY | ~2019-09-12 | XMS | Encounter Summary ---
Demographics + + + | Address | [address] | | | [place] [address] | + + + | Home Phone [...] + | Author | [facility] | | | and [place] | + + + | Organization | [facility] | [...] | | | | | [place] [address] | | + + + + + | Valentín Saleh | ECON | [address] | | | | | [place] [address] | | + + + + + | Roberto Carlos Lennon | LEVI | Unknown | | + + + + + Care Team Providers + +------+ + | Care School Clerk Name | Role | Phone | [...] Description | +--------+---------+ + + + | 07/25/ | Office | [facility] | Francois Pascal, | Diabetes mellitus | | 2018 | Visit | MEDICINE [address] | [address] | due to underlying | | | | [address] [place], | [address] [place], | condition with | | | | [place] [address] | [place] [address] | hyperglycemia, with | | | | [phone] | [phone] | long-term current | | | | | | use of insulin (HCC) | | | | | | (Primary Dx); Mild | | | | | | dementia (HCC); | | | | | | CHRONIC KIDNEY | | | | | | DISEASE STAGE III | | | | | | (MODERATE); Atrial | | | | | | fibrillation, | | | | | | unspecified type | | | | | | (HCC) | +--------+---------+ + + + Social [...] + | Blood Pressure | 100/60 | 07/25/2017 12:35 PM | | | | | PDT | | + + + + + | Pulse | 63 | 07/25/2017 12:35 PM | | | | | PDT | | + + + + + | Temperature | 36.3 C (97.4 F) | 07/25/2017 12:35 PM | | | | | PDT | | + + + + + | Respiratory Rate | - | - | | + + + + + | Oxygen Saturation | 96% | 07/25/2017 12:35 PM | | | | | PDT | | + + + + + | Inhaled Oxygen | - | - | | | Concentration | | | | + + + + + | Weight | 64 kg (141 lb 1.5 | 07/25/2017 12:35 PM | | | | oz) | PDT | | + + + + + | Height | - | - | | + + + + + | Body Mass Index | 22.77 | 02/01/2017 12:32 PM | | | | | PST [...] encounter Progress Notes Francois Pascal MD - 07/25/2017 12:30 PM PDTFormatting of this note might be different f rom the original. Subjective: Patient ID: Alyson Lennon is a 86 y.o. female. HPI CAD, Afib on xarelto, Followed by Cardiology, No recent CP or SOB. Dementia, recent Delerium Confusion slightly less confused. There is no burning with Dinetouch. Pt denies any confusion. Her states her memory is "about the same or mayb e a little worse" She states her mood is "not bad" Diabetes, She is on the lantus and novolog. She has no complaint of foot sore, There is no complaint of P, P or P. OA, Her notes that she does not complain as much about her joints as she used to. Wheelchair bound since., She is still not weight bearing and is wheelchair bound at thi s point. She is not in therapy at this point. Glossitis/ Autoimmune Dermatitis, The skin on the forehead Flaky and red but is not painf ul or itchty at this point. She is on MTX. CKD, this is worsened post op, She is trying to drink plenty of fluid. This is now foll owed by Kemar Mcclelland. This is unchanged Past Medical History: Type 2 DM with [...] VSD Father 50 Pneumonia Family Hx of Sumpter's chorea Sister and 2 brothers: CAD, Airam's Disease to Sigrid - with 2 Healthy Children No kidney disease in family. Social History: Born in [facility] for 47 [...] Depression, no anxiety,no sleep problems Objective: BP 100/60 | Pulse 63 | Temp 36.3 C (97.4 F) (Temporal) | Wt 64 kg (141 lb 1.5 oz) | SpO2 96% | BMI 22.77 kg/m Physical Exam Heent, WNL, No carotid bruit Chest CTAB Heart irreg R&R /s M Abd S,NT,ND,BS+ Ext, no CCor E Neuro Non-focal Lymph, no cervical, axillary, inguinal adenopathy Musculoskeletal, no gross deformity or loss or range of motion Skin, no gross lesions Assessment: 1. Diabetes mellitus due to underlying condition with hyperglycemia, with long-term current use of insulin (HCC) CBC with Differential Comprehensive Metabolic Panel Hemoglobin A1C 2. Mild dementia 3. CHRONIC KIDNEY DISEASE STAGE III (MODERATE) 4. Atrial fibrillation, unspecified type (HCC) Plan: She has no new complaint today. Her labs were performed in March. Labs are due. RT C 3 months with labs prior. MMSE today. documented in this encounter Plan of [...] | | | | | | [place] [address] | | | | | | [phone] | | | | | | | | +--------+---------+ + + + + +------+--------+ + + | Name | Type | Priori | Associated Diagnoses | Order Schedule | | | | ty | | | + +------+--------+ + + | CBC with | Lab | Routin | Diabetes mellitus | 1 Occurrences | | Differential | | e | due to underlying | starting 07/25/2017 | | | | | condition with | until 07/25/2018 | | | | | hyperglycemia, with | | | | | | long-term current | | | | | | use of insulin (HCC) | | + +------+--------+ + + | Comprehensive | Lab | Routin | Diabetes mellitus | 1 Occurrences | | Metabolic Panel | | e | due to underlying | starting 07/25/2017 | | | | | condition with | until 07/25/2018 | | | | | hyperglycemia, with | | | | | | long-term current | | | | | | use of insulin (HCC) | | + +------+--------+ + + | Hemoglobin A1C | Lab | Routin | Diabetes mellitus | Expected: 10/23/2017 | | | | e | due to underlying | (Approximate), | | | | | condition with | Expires: 07/25/2018 | | | | | hyperglycemia, with | | | | | | long-term current | | | | | | use of insulin (HCC) | | + +------+--------+ + + documented as of this encounter Procedures + +--------+ + + + | Procedure Name | Priori | Date/Time | Associated Diagnosis | Comments | | | ty | | | | + +--------+ + + + | LABS - EXTERNAL SCAN | | 09/26/2017 | | Results for this | | | | 12:00 AM | | procedure are in the | | | | PDT | | results section. | + +--------+ + + + | LABS - EXTERNAL SCAN | | 06/29/2017 | | Results for this | | | | 12:00 AM | | procedure are in the | | | | PDT | | results section. | + +--------+ + + + documented in this encounter Results LABS - EXTERNAL SCAN (09/26/2017 12:00 AM PDT) + + + | Narrative | Performed At | + + + | Ordered by an | | | unspecified provider. | | + + + LABS - EXTERNAL SCAN (06/29/2017 12:00 AM PDT) + + + | Narrative | Performed At | + + + | Ordered by an | | | unspecified provider. | | + + + documented in this encounter Visit Diagnoses + + | Diagnosis | + + | Diabetes mellitus due to underlying condition with hyperglycemia, with long-term | | current use of insulin (HCC) - Primary | + + | Mild dementia (HCC) Dementia, unspecified, without behavioral disturbance | + + | CHRONIC KIDNEY DISEASE STAGE III (MODERATE) Chronic kidney disease, Stage III | | (moderate) | + + | Atrial fibrillation, unspecified type (HCC) | + + documented in this encounter
--- OUTSIDE RECORDS SUMMARY | ~2019-09-12 | XMS | Encounter Summary ---
Demographics + + + | Address | [address] | | | [place] [address] | + + + | Home Phone | | + + + | Preferred Language | Unknown | + + + | Marital Status | | + + + | Shinto Affiliation | Unknown | + + + | Race | Unknown | + + + | Ethnic Group | Unknown | + + + Author + + + | Author | [facility] | | | and [place] | + + + | Organization | [facility] | [...] | | | | | [place] [address] | | + + + + + | Valentín Saleh | ECON | [address] | | | | | [place] [address] | | + + + + + | Roberto Carlos Lennon | LEVI | Unknown | | + + + + + Care Team Providers + +------+ + | Care Membership Correspondent Name | Role | Phone | [...] + | 04/03/ | Refill | [facility] | Francois Pascal, | Medication Refill | | 2012 | | [facility] | [address] | | | | | [address] | [address] [place], | | | | | [place] | [place] [address] | | | | | [address] | [phone] | | | | | [phone] | | | +--------+--------+ + + + [...] | | | | | | [place] [address] | | | | | | [phone] | | | | | | | | +--------+---------+ + + + documented as of this encounter Visit Diagnoses Not on filedocumented in this encounter"
--- OUTSIDE RECORDS SUMMARY | ~2019-09-12 | XMS | Encounter Summary ---
Demographics + + + | Address | [address] | | | [place] [address] | + + + | Home Phone [...] Author | [facility] | | | and [place] | + + + | Organization | [facility] | [...] | | | | | [place] [address] | | + + + + + | Valentín Saleh | ECON | [phone] | | | | | [place] [address] | | + + + + + | Roberto Carlos Lennon | LEVI | Unknown | | + + + + + Care Team Providers + +------+ + | Care Consulting Technical Director Name | Role | Phone | + +------+ + | Francois Pascal MD | PCP | | + +------+ + Encounter Details +--------+ + + + + | Date | Type | Department | Care Team | Description | +--------+ + + + + | 06/22/ | Abstract | [facility] [place] | [place], | | | 2012 | | NEPHROLOGY [address] | [address] | | | | | [facility] [address] | [address] [facility] | | | | | [place], [place] | [address] [place] | | | | | [address] | [address] | | | | | [phone] | | | +--------+ + + + [...] | | | | | | [place] [address] | | | | | | [phone] | | | | | | | | +--------+---------+ + + + documented as of this encounter Visit Diagnoses Not on filedocumented in this encounter"
--- OUTSIDE RECORDS SUMMARY | ~2019-09-12 | XMS | Encounter Summary ---
Demographics + + + | Address | [address] | | | [place] [address] | + + + | Home Phone [...] Author | [facility] | | | and [place] | + + + | Organization | [facility] | | | and [...] | | | | | [place] [address] | | + + + + + | Valentín Saleh | ECON | [phone] | | | | | [place] [address] | | + + + + + | Roberto Carlos Lennon | LEVI | [place] | | + + + + + Care Team Providers + +------+ + | Care Regulatory And Compliance Technician Name | Role | Phone | + +------+ + PCP | Unavailable | + +------+ + Encounter Details +--------+ + + + + | Date | Type | Department | Care Team | Description | +--------+ + + + + | 01/20/ | Hospital | [facility] | | | | 1997 | Encounter | MED CTR XRAY [address] | | | | | | [place] | | | | | | [place] [address] | | | | | | [phone] | | | +--------+ + + + [...] 2019 | Visit | | MD Bob Shehean | | | | | | [place], | | | | | | [place] [address] | | | | | | [phone] | | | | | | | | +--------+---------+ + + + documented as of this encounter Visit Diagnoses Not on filedocumented in this encounter"
--- OUTSIDE RECORDS SUMMARY | ~2019-09-12 | XMS | Encounter Summary ---
Demographics + + + | Address | [address] | | | [place] [address] | + + + | Home Phone | | + + + | Preferred Language | Unknown | + + + | Marital Status | | + + + | Latter Day Affiliation | Unknown | + + + | Race | Unknown | + + + | Ethnic Group | Unknown | + + + Author + + + | Author | [facility] | | | and [place] | + + + | Organization | [facility] [...] | | | | | [place] [address] | | + + + + + | Valentín Saleh | ECON | [address] | | | | | [place] [address] | | + + + + + | Roberto Carlos Lennon | LEVI | Unknown | | + + + + + Care Team Providers + +------+ + | Care Balance Bridge Inspector Name | Role | Phone | + +------+ + | Francois Pascal MD | PCP | | + +------+ + Encounter Details +--------+ + + + + | Date | Type | Department | Care Team | Description | +--------+ + + + + | 11/14/ | Orders Only | [facility] [place] | [place], | CHRONIC KIDNEY | | 2012 | | NEPHROLOGY [address] | [address] | DISEASE STAGE III | | | | [address] | [address] [facility] | (MODERATE) (Primary | | | | [place], [place] | [address] [place], [place] | Dx) | | | | [address] | [address] | | | | | [phone] | | | +--------+ + + + [...] encounter Progress Notes Zaynab Humphries RN - 11/14/2012 5:15 PM PDTLabs for nephrology appt f/u expected late Se pt. Sent to [facility] docu mented in this encounter Plan of Treatment +--------+---------+ + + + | Date | Type | Specialty | Care Team | Description | +--------+---------+ + + + | 12/06/ | Office | Cardiology | Stephenie Paul, | | | 2019 | Visit | | MD Rojas [facility] | | | | | | [place], | | | | | | [place] [address] | | | | | | [phone] | | | | | | | | +--------+---------+ + + + documented as of this encounter Results Microalbumin/Creatinine Ratio, Urine (11/23/2012 9:10 AM PDT) + + + + + + | Component | Value | Ref Range | Performed | Pathologist | | | | | At | Signature | + + + + + + | Microalbumi | 26 (H) | <18 mg/L | [facility] | | | n, Urine, | | | [facility] | | | Random | | | MEDICAL | | | | | | CENTER - | | | | | | LABORATORY | | + + + + + + | Creatinine, | 97.21 | mg/dL | [facility] | | | Urine | | | [facility] | | | | | | MEDICAL | | | | | | CENTER - | | | | | | LABORATORY | | + + + + + + | Microalb | 27Comment: | <30 mg/gm Cr | [facility] | | | Creat Ratio | <30 MG/G - NORMAL, | | [facility] | | | | REPEAT YEARLY | | MEDICAL | | | | 30-300 MG/G - INCREASED | | CENTER - | | | | RISK FROM DIABETIC | | LABORATORY | | | | NEPHROPATHY. | | | | | | TWO OF | | | | | | THREE A/C RATIOS IN THIS | | | | | | RANGE | | | | | | INDICATE | | | | | | MICROALBUMINURIA AND | | | | | | DIABETIC | | | | | | NEPHROPATHY. | | | | | | >300 MG/G - | | | | | | TWO OF THREE A/C RATIOS | | | | | | IN THIS RANGE | | | | | | | | | | | | CONFIRMS [facility] | | | | | | NEPHROPATHY. | | | | + + + [...] [address] | [place] | [phone] | | [facility] | | [address] | | | - LABORATORY | | | | + + + + + | [facility] | [address] | [place] | | | [facility] | | [address], [facility] | | | - LABORATORY | | | | + + + + + Renal Function Panel (11/23/2012 9:02 AM PDT) + + + + + + | Component | Value | Ref Range | Performed | Pathologist | | | | | At | Signature | + + + + + + | Glucose | 251 (H) | 70 - 109 mg/dL | [...] + + + + | Phosphorus | 3.9 | 2.5 - 4.6 mg/dL | [facility] | | | | | | [facility] | | | | | | MEDICAL | | | | | | CENTER - | | | | | | LABORATORY | | + + + + + + | Albumin | 3.4 | 3.2 - 5.0 gm/dL | [facility] [...] | | | | | mg/dL | [facility] | | | | | | MEDICAL | | | | | | CENTER - | | | | | | LABORATORY | | + + + + + + | Estimated | 44 (L)Comment: For | >60 mL/min/A | [facility] | | | GFR | -Americans, | | [facility] | | | | please multiply [...] + + + | Anion Gap | 12.9 | 6.0 - 17.0 | [facility] | [...] + | [address] | [address] | [place], [place] | [phone] | | [facility] | | [address] | | | - LABORATORY | | | | + + + + + | [address] | [address] | [place], [place] | | | [facility] | | [id number] | | | - LABORATORY | | | | + + + + + documented in this encounter Visit Diagnoses + + | Diagnosis | + + | CHRONIC KIDNEY DISEASE STAGE III (MODERATE) - Primary Chronic kidney disease, Stage | | III (moderate) | + + documented in this encounter"
--- OUTSIDE RECORDS SUMMARY | ~2019-09-12 | XMS | Encounter Summary ---
Demographics + + + | Address | [address] | | | [place] [address] | + + + | Home Phone [...] Author | [facility] | | | and [place] | + + + | Organization | [facility] | | | and [...] | | | | | [place] [address] | | + + + + + | Valentín Saleh | ECON | [phone] | | | | | [place] [address] | | + + + + + | Roberto Carlos Lennon | LEVI | Unknown | | + + + + + Care Team Providers + +------+ + | Care Heddle Machine Operator Name | Role | Phone | + +------+ + | Francois Pascal MD | PCP | | + +------+ + Reason for Visit + +--------+ + | Reason | Onset | Comments | | | Date | | + +--------+ + | Medication Refill | 10/14/ | | | | 2015 | | + +--------+ + Encounter Details +--------+ + + + + | Date | Type | Department | Care Team | Description | +--------+ + + + + | 10/14/ | Telephone | [facility] | Francois Pascal, | Medication Refill | | 2015 | | [place] [address] [place] | [address] | | | | | [address] [place], | [address] [place], | | | | | [place] [address] | [place] [address] | | | | | [phone] | [phone] | | | | | | | [...] Telephone Encounter - Airam Menjivar RN - 10/15/2015 10:37 AM PDTCalled and notified larry hubbard to have labs done prior to Tuesday when she is due to take her Methotrexate. Patient expressed understanding. documented in this encounter Plan of Treatment +--------+---------+ + + + | Date | Type | Specialty | Care Team | Description | +--------+---------+ + + + | 12/06/ | Office | Cardiology | Stephenie Paul, | | | 2019 | Visit | | MD [address] | | | | | | [place], | | | | | | [place] [address] | | | | | | [phone] | | | | | | | | +--------+---------+ + + + + +------+--------+ + + | Name | Type | Priori | Associated Diagnoses | Order Schedule | | | | ty | | | + +------+--------+ + + | Comprehensive | Lab | Routin | High risk | Every 12 weeks for 4 | | Metabolic Panel | | e | medication use | Occurrences | | | | | | starting 10/15/2015 | | | | | | until 10/14/2016, 2 | | | | | | completed | + +------+--------+ + + | CBC with | Lab | Routin | High risk | Every 12 weeks for 4 | | Differential | | e | medication use | Occurrences | | | | | | starting 10/15/2015 | | | | | | until 10/14/2016, 2 | | | | | | completed | + +------+--------+ + + documented as of this encounter Results CBC with Differential (02/17/2016 9:00 AM PST) + + + + + + | Component | Value | Ref Range | Performed | Pathologist | | | | | At | Signature | + + + + + + | White Blood | 12.6 (H) | 4.0 - 11.0 K/uL | [facility] | | | Cells | | | [facility] | | | | | | MEDICAL | | | | | | CENTER - | | | | | | LABORATORY | | + + + + + + | Red Blood | 4.34 | 3.70 - 5.20 | [facility] | [...] + + + + | Hematocrit | 42.8 | 34.0 - 47.0 % | [facility] | | | | | | [facility] | | | | | | MEDICAL | | | | | | CENTER - | | | | | | LABORATORY | | + + + + + + | MCV | 98.7 | 83.0 - 101.0 fL | [facility] | | | | | | [facility] | | | | | | MEDICAL | | | | | | CENTER - | | | | | | LABORATORY | | + + + + + + | MCH | 33.5 | 28.0 - 35.0 pg | [facility] [...] + + + + | RDW-CV | 14.1 | <15.0 % | [facility] | | | | | | [facility] | | | | | | MEDICAL | | | | | | CENTER - | | | | | | LABORATORY | | + + + + + + | Platelet | 207 | 140 - 440 K/uL | [facility] [...] + + + + | % | 47.6 | 45.0 - 82.0 % | [facility] | | | Neutrophils | | | [facility] | | | | | | MEDICAL | | | | | | CENTER - | | | | | | LABORATORY | | + + + + + + | % | 33.8 | 20.0 - 45.0 % | [facility] | | | Lymphocytes | | | [facility] | | | | | | MEDICAL | | | | | | CENTER - | | | | | | LABORATORY | | + + + + + + | % Monocytes | 12.2 (H) | 4.0 - 12.0 % | [facility] | | | | | | [facility] | | | | | | MEDICAL | | | | | | CENTER - | | | | | | LABORATORY | | + + + + + + | % | 5.9 (H) | 0.0 - 5.0 % | [...] + + + + | Absolute | 6.00 | 1.80 - 8.50 | [facility] | | | Neutrophils | | K/uL | [facility] | | | | | | MEDICAL | | | | | | CENTER - | | | | | | LABORATORY | | + + + + + + | Absolute | 4.20 (H) | 0.60 - 3.20 | [facility] [...] [address] | [place] | [phone] | | [facility] | | [address] | | | - LABORATORY | | | | + + + + + Comprehensive Metabolic Panel (02/17/2016 9:00 AM PST) + + + + + [...] + + + + | Glucose | 70 | 70 - 109 mg/dL | [facility] | | | | | | [facility] | | | | | | MEDICAL | | | | | | CENTER - | | | | | | LABORATORY | | + + + + + + | BUN | 29 (H) | 7 - 18 mg/dL | [facility] | | | | | | [facility] | | | | | | MEDICAL | | | | | | CENTER - | | | | | | LABORATORY | | + + + + + + | Creatinine | 1.59 (H) | 0.60 - 1.30 | [facility] | | | | | mg/dL | [facility] | | | | | | MEDICAL | | | | | | CENTER - | | | | | | LABORATORY | | + + + + + + | eGFR if not | 31 (L)Comment: | >=60 | [facility] | | | | GLOMERULAR FILTRATION | mL/min/1.73m2 | [facility] | | | LITHUANIAN | RATE,ESTIMATED | | MEDICAL | | | | mL/min/1.69c2Mrja than | | CENTER - | | [...] + + + + | Calcium | 10.0 | 8.3 - 10.5 | [facility] | | | | | mg/dL | [facility] | | | | | | MEDICAL | | | | | | CENTER - | | | | | | LABORATORY | | + + + + + + | Albumin | 3.8 | 3.2 - 5.0 g/dL | [facility] [...] + + + + | Total | 7.2 | 6.0 - 7.8 g/dL | [facility] | | | Protein | | | [facility] | | | | | | MEDICAL | | | | | | CENTER - | | | | | | LABORATORY | | + + + + + + | AST | 19 | 10 - 42 U/L | [facility] [...] + + | Globulin | 3.4 | 2.1 - 3.8 g/dL | [facility] [...] + + + + | BUN/Creatin | 18.2 | | [facility] | | | ine [...] [address] | [place] | [phone] | | [facility] | | [address] | | | - LABORATORY | | | | + + + + + CBC with Differential (10/16/2015 9:18 AM PDT) + + + + [...] + + + | Red Blood | 4.45 | 3.70 - 5.20 | [facility] | | | Cells | | M/uL | [facility] | | | | | | MEDICAL | | | | | | CENTER - | | | | | | LABORATORY | | + + + + + + | Hemoglobin | 15.2 | 11.5 - 16.0 | [facility] | | | | | g/dL | [facility] | | | | | | MEDICAL | | | | | | CENTER - | | | | | | LABORATORY | | + + + + + + | Hematocrit | 44.9 | 34.0 - 47.0 % | [facility] | | | | | | [facility] | | | | | | MEDICAL | | | | | | CENTER - | | | | | | LABORATORY | | + + + + + + | MCV | 101.1 (H) | 83.0 - 101.0 fL | [facility] | | | | | | [facility] | | | | | [facility] | | | | | | CENTER - | | | | | | LABORATORY | | + + + + + + | MCH | 34.1 | 28.0 - 35.0 pg | [facility] [...] + + + + | Platelet | 199 | 140 - 440 K/uL | [facility] | | | Count | | | [facility] | | | | | | MEDICAL | | | | | | CENTER - | | | | | | LABORATORY | | + + + + + + | MPV | 8.9 | fL | [facility] | | | | | | [facility] | | | | | | MEDICAL | | | | | | CENTER - | | | | | | LABORATORY | | + + + + + + | % | 56.8 | 45.0 - 82.0 % | [facility] | | | Neutrophils | | | [facility] | | | | | | MEDICAL | | | | | | CENTER - | | | | | | LABORATORY | | + + + + + + | % | 30.1 | 20.0 - 45.0 % | [facility] | | | Lymphocytes | | | [facility] | | | | | | MEDICAL | | | | | | CENTER - | | | | | | LABORATORY | | + + + + + + | % Monocytes | 8.0 | 4.0 - 12.0 % | [facility] | | | | | | [facility] | | | | | | MEDICAL | | | | | | CENTER - | | | | | | LABORATORY | | + + + + + + | % | 4.5 | 0.0 - 5.0 % | [facility] [...] + + + + | Absolute | 6.90 | 1.80 - 8.50 | [facility] | | | Neutrophils | | K/uL | [facility] | | | | | | MEDICAL | | | | | | CENTER - | | | | | | LABORATORY | | + + + + + + | Absolute | 3.70 (H) | 0.60 - 3.20 | [facility] | | | Lymphocytes | | K/uL | [facility] | | | | | | MEDICAL | | | | | | CENTER - | | | | | | LABORATORY | | + + + + + + | Absolute | 1.00 | 0.00 - 1.00 | [facility] | [...] [address] | [place] | [phone] | | [facility] | | [address] | | | - LABORATORY | | | | + + + + + Comprehensive Metabolic Panel (10/16/2015 9:18 AM PDT) + + + + [...] + + + + | Glucose | 111 (H) | 70 - 109 mg/dL | [facility] | | | | | | [facility] | | | | | | MEDICAL | | | | | | CENTER - | | | | | | LABORATORY | | + + + + + + | BUN | 17 | 7 - 18 mg/dL | [facility] | | | | | | [facility] | | | | | | MEDICAL | | | | | | CENTER - | | | | | | LABORATORY | | + + + + + + | Creatinine | 1.30 | 0.60 - 1.30 | [facility] | | | | | mg/dL | [facility] | | | | | | MEDICAL | | | | | | CENTER - | | | | | | LABORATORY | | + + + + + + | eGFR if not | 39 (L)Comment: | >=60 | [facility] | | | | GLOMERULAR FILTRATION | mL/min/1.73m2 | [facility] | | | LITHUANIAN | RATE,ESTIMATED | | MEDICAL | | | | mL/min/1.55d4Wqde than | | CENTER - | | [...] + + + + | Albumin | 4.0 | 3.2 - 5.0 g/dL | [facility] [...] + + + + | Total | 7.3 | 6.0 - 7.8 g/dL | [facility] | | | Protein | | | [facility] | | | | | | MEDICAL | | | | | | CENTER - | | | | | | LABORATORY | | + + + + + + | AST | 25 | 10 - 42 U/L | [facility] [...] + + + + | BUN/Creatin | 13.1 | | [facility] | | | ine [...] ST. | [address] | [place] | [phone] | | [facility] | | [address] | | | - LABORATORY | | | | + + + + + documented in this encounter Visit Diagnoses + + | Diagnosis | + + | High risk medication use - Primary Encounter for long-term (current) use of other | | medications | + + documented in this encounter"
--- OUTSIDE RECORDS SUMMARY | ~2019-09-12 | XMS | Encounter Summary ---
Demographics + + + | Address | [address] | | | [place] [address] | + + + | Home Phone [...] | [facility] | | | and [place] | + + + | Organization | [facility] [...] | | | | | [place] [address] | | + + + + + | Valentín Saleh | ECON | [address] | | | | | [place] [address] | | + + + + + | Roberto Carlos Lennon | LEVI | Unknown | | + + + + + Care Team Providers + +------+ + | Care Propellant Assembler Name | Role | Phone | [...] | 08/09/ | Refill | [facility] [place] | Stephenie Paul, | Medication Refill | | 2013 | | CARDIOLOGY [address] | MD [address] [place] | | | | | [place], | [place], | | | | | [place] [address] | [place] [address] | | | | | [phone] | [phone] | | | | | | | [...] | | | | | | [place] [address] | | | | | | [phone] | | | | | | | | +--------+---------+ + + + documented as of this encounter Visit Diagnoses Not on filedocumented in this encounter"
--- OUTSIDE RECORDS SUMMARY | ~2019-09-12 | XMS | Encounter Summary ---
Demographics + + + | Address | [address] | | | [place] [address] | + + + | Home Phone [...] Author | [facility] | | | and [place] | + + + | Organization | [facility] | | | and [place] | + + + | Address | Unknown | + + + | Phone | Unavailable | + + + Support + + + + + | Name | Relationship | Address | Phone | + + + + + | Sigrid Lennon | ECON | [address] | | | | | [place] [address] | | + + + + + | Valentín Saleh | ECON | [phone] | | | | | [place] [address] | | + + + + + | Roberto Carlos Lennon | LEVI | [place] | | + + + + + Care Team Providers + +------+ + | Care Nail Making Machine Setter Name | Role | Phone | + +------+ + PCP | Unavailable | + +------+ + Encounter Details +--------+ + + + + | Date | Type | Department | Care Team | Description | +--------+ + + + + | 10/29/ | Hospital | [facility] | | | | 1996 | Encounter | MED CTR XRAY [address] | | | | | | [place] | | | | | | [place] [address] | | | | | | [phone] | | | +--------+ + + + [...] | | | | | | [place] [address] | | | | | | [phone] | | | | | | | | +--------+---------+ + + + documented as of this encounter Visit Diagnoses Not on filedocumented in this encounter"
--- OUTSIDE RECORDS SUMMARY | ~2019-09-12 | XMS | Encounter Summary ---
Demographics + + + | Address | [address] | | | [place] [address] | + + + | Home Phone [...] | Author | [facility] | | | and [place] | + + + | Organization | [facility] [...] | | | | | [place] [address] | | + + + + + | Valentín Saleh | ECON | [phone] | | | | | [place] [address] | | + + + + + | Roberto Carlos Lennon | LEVI | [place] | | + + + + + Care Team Providers + +------+ + | Care General Milling Superintendent Name | Role | Phone | + +------+ + PCP | Unavailable | + +------+ + Encounter Details +--------+ + + + + | Date | Type | Department | Care Team | Description | +--------+ + + + + | 06/17/ | Hospital | [facility] | RiderMauricio villarreal | | | 2009 | Encounter | MED CTR XRAY [address] | [place] [facility] | | | | | [place] | [place] | | | | | [place] [address] | [address] | | | | | [phone] | | | +--------+ + + + [...] | | | | | | [place] [address] | | | | | | [phone] | | | | | | | | +--------+---------+ + + + documented as of this encounter Visit Diagnoses Not on filedocumented in this encounter"
--- OUTSIDE RECORDS SUMMARY | ~2019-09-12 | XMS | Encounter Summary ---
Demographics + + + | Address | [address] | | | [place] [address] | + + + | Home Phone [...] Author | [facility] | | | and Clarkeana | + + + | Organization | 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[address] | | | | | stage 3 | [place] | [address] | | | | | (moderate) | [place] | [address] | | | | | (HCC) | [address] | [place], | | | | | Hypertension | Phone: | [place] [address] | | | | | , renal | [phone] | Phone: | | | | | disease | Fax: | [phone] | | | | | Procedures | [phone] | Fax: | | | | | DC OFFICE | | [phone] | | | | | OUTPATIENT | | | | | | | VISIT 25 | | | | | | | MINUTES | | | +--------+--------+ + + + + Encounter Details +--------+---------+ + + + | Date | Type | Department | Care Team | Description | +--------+---------+ + + + | 10/04/ | Office | [facility] [place] | F[place], | CHRONIC KIDNEY | | 2017 | Visit | NEPHROLOGY [address] | [address] | DISEASE STAGE III | | | | [address] | [address] | (MODERATE) (Primary | | | | [place] | [address] | Dx); Gout, | | | | [address] | [address] | unspecified cause, | | | | [phone] | | unspecified | | | | [...] | | | | | | status ([facility]); | | | | | | Hypertension, [...] left hip. Since then has been at [facility] for rehab. She is ambulating with a walker at care facility. She is not sure what her blood pressure has been recently. No lightheadedness or dizziness. 07/10/16-07/13/16- Hospitalized due to left hip fracture now at [facility]. 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/27/2012 Note Last Updated: 12/16/2015 Problem list cream tester utility Preventative health care 03/23/2012 Note Last Updated: 09/27/2012 CRSC:03/23/2002normal except for redundancy and atonicity Next Due: Mammo:03/02/2012 benign Next:03/02/2013 Pap:03/24/2009 negative Next: CAROTID STENOSIS AMAUROSIS FUGAX DEMYELINATING DISEASE, CENTRAL NERVOUS SYSTEM FRACTURE, ANKLE, LEFT VITAMIN D DEFICIENCY Hypertension, renal disease DM type 2, uncontrolled, 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 0 Mymoscp-Dwjtftefr-Srbmyey D (CALCIUM 500 PO) Take 1 capsule [...] | | | | | | [place] [address] | | | | | | [phone] | | | | | | | [...] + | [facility] | [address] | [place] | [phone] | | [facility] | | [address] | | | - LABORATORY | | [...] [address] | [place] | [phone] | | [facility] | | [address] | | | - LABORATORY | | [...] [address] | [place] | [phone] | | [facility] | | [address] | | | - LABORATORY | | [...] mL/min/1.73m2 | . [facility] | | | [place] | | | MEDICAL | | | [...] [address] | [place] | [phone] | | [facility] | | [address] | | | - LABORATORY | | [...] 2 diabetes mellitus with diabetic nephropathy, unspecified buttermaker continuous churn | | insulin use status | + + | Hypertension, renal disease, stage 1-4 or unspecified chronic kidney disease | + + | Vitamin D deficiency Unspecified vitamin D deficiency | + + documented in this encounter
--- OUTSIDE RECORDS SUMMARY | ~2019-09-12 | XMS | Encounter Summary ---
Demographics + + + | Address | [address] | | | [place] [address] | + + + | Home Phone [...] Author | [facility] | | | and Clarkeana | + + + | Organization | [facility] | | [...] | | | | | [place] [address] | | + + + + + | Valentín Saleh | ECON | [address] | | | | | [place] [address] | | + + + + + | Roberto Carlos Lennon | LEVI | Unknown | | + + + + + Care Team Providers + +------+ + | Care Crew Supervisor Name | Role | Phone | [...] + + | 10/02/ | Office | [facility] | Francois Pascal, | CHRONIC KIDNEY | | 2012 | Visit | MEDICINE [place] | [address] | DISEASE STAGE III | | | | [address] | [address] [place], | (MODERATE) (Primary | | | | [place], [place] | [place] [address] | Dx); DM (diabetes | | | | [address] | [phone] | mellitus) (HCC); | | | | [phone] | | Hyperlipidemia; | | | | [...] VSD Father 50 Pneumonia Family Hx of Walnut's chorea Sister and 2 brothers: CAD, Airam's Disease to Sigrid - with 2 Healthy Children No kidney disease in family. Social History: Reviewed history from 08/11/2011 and no changes required: Born in [facility] for [facility] years. and [...] continues to bother her. 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, | | | | | | [place] [address] | | | | | | [phone] | | | | | | | [...]
--- OUTSIDE RECORDS SUMMARY | ~2019-09-12 | XMS | Encounter Summary ---
Demographics + + + | Address | [address] | | | [place] [address] | + + + | Home Phone [...] + | Author | [facility] | | | and Clarkeana | + + + | Organization | [facility] | | [...] | | | | | [place] [address] | | + + + + + | Valentín Saleh | ECON | [address] | | | | | [place] [address] | | + + + + + | Roberto Carlos Lennon | LEVI | Unknown | | + + + + + Care Team Providers + +------+ + | Care Dietary Aide Name | Role | Phone | + +------+ + | Francois Pascal MD | PCP | | + +------+ + Encounter Details +--------+ + + + + | Date | Type | Department | Care Team | Description | +--------+ + + + + | 08/23/ | Hospital | [facility] | Stephenie Paul, | | | 2011 | Encounter | MED CTR LAB[facility]ATORY | [address] | | | | | [address] | [facility] [place], | | | | | [place] | [place] [address] | | | | | [address] | [phone] | | | | | [phone] | | | +--------+ + + + [...] + +---------+ + + | allopurinol | 2 tablets by mouth | | 0 | 08/11/19 | | | (ZYLOPRIM) 100 mg | in the morning and 1 | | | 12 | 2 | | tablet | tablet in the | | | | | | | evening | | | | | + + [...] | | | | | | [place] [address] | | | | | | [phone] | | | | | | | | +--------+---------+ + + + documented as of this encounter Procedures + +--------+ + + + | Procedure Name | Priori | Date/Time | Associated Diagnosis | Comments | | | ty | | | | + +--------+ + + + | LIPID PROFILE | Routin | 08/24/2011 | | Results for this | | | e | 9:38 AM | | procedure are in the | | | | PDT | | results section. | + +--------+ + + + | CBC WITH | Routin | 08/24/2011 | | Results for this | | DIFFERENTIAL | e | 9:38 AM | | procedure are in the | | | | PDT | | results section. | + +--------+ + + + | HEMOGLOBIN A1C | Routin | 08/24/2011 | | Results for this | | | e | 9:38 AM | | procedure are in the | | | | PDT | | results section. | + +--------+ + + + | BILIRUBIN, DIRECT | Routin | 08/24/2011 | | Results for this | | | e | 9:38 AM | | procedure are in the | | | | PDT | | results section. | + +--------+ + + + | COMPREHENSIVE | Routin | 08/24/2011 | | Results for this | | METABOLIC PANEL | e | 9:38 AM | | procedure are in the | | | | PDT | | results section. | + +--------+ + + + documented in this encounter Results Comprehensive Metabolic Panel (08/24/2011 9:38 AM PDT) + + + + + + | Component | Value | Ref Range | Performed | Pathologist | | | | | At | Signature | + + + + + + | Glucose | 229 (H) | 70 - 109 mg/dL | [...] Alkaline | 57 | 40 - 110 IU/L | [facility] [...] + + + + | ALT | 31 | 6 - 45 IU/L | [facility] | | | | | [facility] | | | | | | [facility] | | | | | | C[facility] - | | | | | | LABORATORY | | + + + + + + | Bilirubin | 0.5 | 0.2 - 1.0 mg/dL | [facility] [...] 15 | 7 - 18 mg/dL | [facility] | | | | | | [facility] | | | | | | MEDICAL | | | | | | CENTER - | | | | | | LABORATORY | | + + + + + + | Creatinine | 1.35 (H) | 0.60 - 1.30 | [facility] | | | | | mg/dL | [facility] | | | | | | [facility] | | | | | | CENTER - | | | | | | LABORATORY | | + + + + + + | Estimated | 38 (L)Comment: For | >60 mL/min/A | [facility] | | | GFR | -Americans, | [...] + + + + | BUN/Creatin | 11.1 (L) | 12 - 20 | [facility] [...] + + + + | K | 4.6 | 3.5 - 5.1 mEq/l | [facility] [...] + | [facility] | [address] | [place], [place] | [phone] | | [facility] | | [address] | | | - LABORATORY | | | | + + + + + | [facility] | [address] | [place] | | | [facility] | | [address] | | | - LABORATORY | | | | + + + + + CBC with Differential (08/24/2011 9:38 AM PDT) + + + + [...] + + + + | MCV | 106.9 (H) | 83.0 - 101.0 fL | [facility] | | | | | | [facility] | | | | | | [facility] | | | | | | CENTER - | | | | | | LABORATORY | | + + + + + + | MCH | 36.9 (H) | 28.0 - 35.0 pg | [facility] | | | | | | [facility] | | | | | | MEDICAL | | | | | | CENTER - | | | | | | LABORATORY | | + + + + + + | MCHC | 34.6 | 32.0 - 36.0 | [facility] | [...] + + + + | Platelet | 163 | 140 - 440 K/uL | [facility] | | | Count | | | [facility] | | | | | | [facility]ICAL | | | | | | CENTER - | | | | | | LABORATORY | | + + + + + + | % | 62.9 | 45 - 75 % | [facility] | | | Neutrophils | | | [facility] | | | | | | MEDICAL | | | | | | CENTER - | | | | | | LABORATORY | | + + + + + + | % | 17.6 (L) | 20 - 45 % | [facility] | | | Lymphocytes | | | [facility] | | | | | | MEDICAL | | | | | | CENTER - | | | | | | LABORATORY | | + + + + + + | % Monocytes | 12.6 (H) | 4 - 12 % | [facility] | | | | | | [facility] | | | | | | MEDICAL | | | | | | CENTER - | | | | | | LABORATORY | | + + + + + + | % | 6.3 (H) | 0 - 5 % | [...] + + + + | Absolute | 5.8 | 1.5 - 6.6 K/uL | [facility] | | | Neutrophils | | | [facility] | | | | | | MEDICAL | | | | | | CENTER - | | | | | | LABORATORY | | + + + + + + | Absolute | 1.6 | 0.6 - 3.2 K/uL | [facility] [...] + | [facility] | [address] | [place], [place] | [phone] | | [facility] | | [address] | | | - LABORATORY | | | | + + + + + | [facility] | [address] | [place], [place] | | | [facility] | | [address], [facility] | | | - LABORATORY | | | | + + + + + Hemoglobin A1C (08/24/2011 9:38 AM PDT) + + + + [...] + | [facility] | [address] | [place] | [phone] | | [facility] | | [address] | | | - LABORATORY | | | | + + + + + | [facility] | [address] | [place] | | | [facility] | | [address] | | | - LABORATORY | | | | + + + + + Lipid Profile (08/24/2011 9:38 AM PDT) + + + + + + | Component | Value | Ref Range | Performed | Pathologist | | | | | At | Signature | + + + + + + | Triglycerid | 242 (H) | 35 - 160 mg/dL | [facility] | | | es | | | [facility] | | | | | | MEDICAL | | | | | | CENTER - | | | | | | LABORATORY | | + + + + + + | Cholesterol | 128 (L) | 150 - 200 mg/dL | [facility] | | | | | | [facility] | | | | | | MEDICAL | | | | | | CENTER - | | | | | | LABORATORY | | + + + + + + | HDL | 46 | 29 - 89 mg/dL | [facility] | | | | | | [facility] | | | | | | MEDICAL | | | | | | CENTER - | | | | | | LABORATORY | | + + + + + + | LDL, | 34 | <130 mg/dL | [facility] | | | Calculated | | | [facility] | | | | | | MEDICAL | | | | | | CENTER - | | | | | | LABORATORY | | + + + + + + | Chol/HDL | 2.8Comment: | | [facility] | | | Ratio [...] + | [facility] | [address] | [place], [place] | [phone] | | [facility] | | [address] | | | - LABORATORY | | | | + + + + + | [facility] | [address] | [place] | | | [facility] | | [address] [place] [address] | | | - LABORATORY | | | | + + + + + Bilirubin, Direct (08/24/2011 9:38 AM PDT) + +-------+ + + + | Component | Value | Ref Range | Performed | Pathologist | | | | | At | Signature | + +-------+ + + + | Bilirubin | 0.1 [...] + | [facility] | [address] | [place] | [phone] | | [facility] | | [address] | | | - LABORATORY | | | | + + + + + | [facility] | [address] | [place] | | | [facility] | | [id number] [place] [address] | | | - LABORATORY | | | | + + + + + documented in this encounter Visit Diagnoses Not on filedocumented in this encounter"
--- OUTSIDE RECORDS SUMMARY | ~2019-09-12 | XMS | Encounter Summary ---
Demographics + + + | Address | [address] | | | [place] [address] | + + + | Home Phone | | + + + | Preferred Language | Unknown | + + + | Marital Status | | + + + | Tenriism Affiliation | Unknown | + + + | Race | Unknown | + + + | Ethnic Group | Unknown | + + + Author + + + | Author | [facility] | | | and Clarkeana | + + + | Organization | [facility] | [...] | | | | | [place] [address] | | + + + + + | Valentín Saleh | ECON | [address] | | | | | [place] [address] | | + + + + + | Roberto Carlos Lennon | LEVI | [place] | | + + + + + Care Team Providers + +------+ + | Care Director Oncology Name | Role | Phone | + +------+ + PCP | Unavailable | + +------+ + Encounter Details +--------+ + + + + | Date | Type | Department | Care Team | Description | +--------+ + + + + | 03/03/ | Hospital | [facility] | Roberto Carlos Tello, | | | 1992 | Encounter | MED CTR XRAY [address] | [address] [facility] | | | | | [place] | [place] | | | | | [place] [address] | [address] | | | | | [phone] | | | +--------+ + + + [...] | | | | | | [place] [address] | | | | | | [phone] | | | | | | | | +--------+---------+ + + + documented as of this encounter Visit Diagnoses Not on filedocumented in this encounter"
--- OUTSIDE RECORDS SUMMARY | ~2019-09-12 | XMS | Encounter Summary ---
Demographics + + + | Address | [address] | | | [place] [address] | + + + | Home Phone [...] | Author | [facility] | | | and Clarkeana | + + + | Organization | [facility] | | [...] | | | | | [place] [address] | | + + + + + | Valentín Saleh | ECON | [address] | | | | | [place] [address] | | + + + + + | Roberto Carlos Lennon | LEVI | [place] | | + + + + + Care Team Providers + +------+ + | Care Lapping Machine Operator Name | Role | Phone | + +------+ + PCP | Unavailable | + +------+ + Encounter Details +--------+ + + + + | Date | Type | Department | Care Team | Description | +--------+ + + + + | 02/23/ | Hospital | [facility] | Francois Pascal, | | | 2009 | Encounter | MED CTR XRAY [address] | [address] | | | | | [place] | [address] [place], | | | | | [place] [address] | [place] [address] | | | | | [phone] | [phone] | | | | | | | [...] | | | | | | [place] [address] | | | | | | [phone] | | | | | | | | +--------+---------+ + + + documented as of this encounter Visit Diagnoses Not on filedocumented in this encounter"
--- OUTSIDE RECORDS SUMMARY | ~2019-09-12 | XMS | Encounter Summary ---
Demographics + + + | Address | [address] | | | [place] [address] | + + + | Home Phone [...] + + | Author | [facility] | | | and Clarkeana | + + + | Organization | [facility] | [...] | | | | | [place] [address] | | + + + + + | Valentín Saleh | ECON | [address] | | | | | [place] [address] | | + + + + + | Roberto Carlos Lennon | LEVI | Unknown | | + + + + + Care Team Providers + +------+ + | Care Supervisor Tank Cleaning Name | Role | Phone | + +------+ + | Francois Pascal MD | PCP | | + +------+ + Reason for Visit + +--------+ + | Reason | Onset | Comments | | | Date | | + +--------+ + | Appointment | 02/16/ | | | | 2015 | | + +--------+ + Encounter Details +--------+ + + + + | Date | Type | Department | Care Team | Description | +--------+ + + + + | 02/16/ | Telephone | [facility] | Francois Pascal, | Appointment | | 2015 | | MEDICINE [address] [place] [address] | [address] | | | | | [place], | [address] [place], | | | | | [place] [address] | [place] [address] | | | | | [phone] | [phone] | | | | | | | [...] this encounter Miscellaneous Notes Telephone Encounter - Joy Ken CMA - 02/17/2016 8:06 AM PSTCalled patient to see if she could come in for a earlier appointment today due to weather. Dr. Pascal would like to see patient around 11 am today if patient is ok with that. Please try and call patient maria e roman to see if she can come in around 11 am today.Electronically signed by YURIY Tinajero t 02/17/2016 8:09 AM PSTdocumented in this encounter Plan of [...] | | | | | | [place] [address] | | | | | | [phone] | | | | | | | | +--------+---------+ + + + documented as of this encounter Visit Diagnoses Not on filedocumented in this encounter"
--- OUTSIDE RECORDS SUMMARY | ~2019-09-12 | XMS | Encounter Summary ---
Demographics + + + | Address | [address] | | | [place] [address] | + + + | Home Phone | | + + + | Preferred Language | Unknown | + + + | Marital Status | | + + + | Zoroastrian Affiliation | Unknown | + + + | Race | Unknown | + + + | Ethnic Group | Unknown | + + + Author + + + | Author | [facility] | | | and Clarkeana | + + + | Organization | [facility] | | | and [...] | | | | | [place] [address] | | + + + + + | Valentín Saleh | ECON | [address] | | | | | [place] [address] | | + + + + + | Roberto Carlos Lennon | LEVI | Unknown | | + + + + + Care Team Providers + +------+ + | Care Fuel Cell Builder Name | Role | Phone | [...] Description | +--------+--------+ + + + | 05/21/ | Refill | [facility] [place] [facility] | Francois Pascal, | Medication Refill | | 2020 | | [facility] | [address] | | | | | [address] | [address] [place], | | | | | [place] | [place] [address] | | | | | [address] | [phone] | | | | | [phone] | | | +--------+--------+ + + + [...] | | | | | | [place] [address] | | | | | | [phone] | | | | | | | | +--------+---------+ + + + documented as of this encounter Visit Diagnoses + + | Diagnosis | + + | Reactive depression Dysthymic disorder | + + documented in this encounter"
--- OUTSIDE RECORDS SUMMARY | ~2019-09-12 | XMS | Encounter Summary ---
Demographics + + + | Address | [address] | | | [place] [address] | + + + | Home Phone [...] | Author | [facility] | | | and [place] | + + + | Organization | [facility] | | | and [place] | + + + | Address | Unknown | + + + | Phone | Unavailable | + + + Support + + + + + | Name | Relationship | Address | Phone | + + + + + | Sigrid Lenonn | ECON | [address] | | | | | [place] [address] | | + + + + + | Valentín Saleh | ECON | [address] | | | | | [place] [address] | | + + + + + | Roberto Carlos Lennon | LEVI | Unknown | | + + + + + Care Team Providers + +------+ + | Care Retail Assistant Name | Role | Phone | [...] Description | +--------+--------+ + + + | 10/21/ | Refill | [facility] [place] [facility] | Francois Pascal, | Medication Refill | | 2015 | | MEDICINE [place] | [address] | | | | | [address] | [address] [place], | | | | | [place] | [place] [address] | | | | | [address] | [phone] | | | | | [phone] | | | +--------+--------+ + + + [...] | | | | | | [place] [address] | | | | | | [phone] | | | | | | | | +--------+---------+ + + + documented as of this encounter Visit Diagnoses Not on filedocumented in this encounter"
--- OUTSIDE RECORDS SUMMARY | ~2019-09-12 | XMS | Encounter Summary ---
Demographics + + + | Address | [address] | | | [place] [address] | + + + | Home Phone [...] Author | [facility] | | | and [place] | + + + | Organization | [facility] | [...] | | | | | [place] [address] | | + + + + + | Valentín Saleh | ECON | [address] | | | | | [place] [address] | | + + + + + | Roberto Carlos Lennon | LEVI | Unknown | | + + + + + Care Team Providers + +------+ + | Care Sdv Pilot/Navigator/Dds Operator Name | Role | Phone | [...] Refill | | 2015 | | MEDICINE [place] | [address] | | | | | [address] | [address] [place], | | | | | [place] | [place] [address] | | | | | [address] | [phone] | | | | | [phone] | | | +--------+--------+ + + + [...] [place], | | | | | | [place] [address] | | | | | | [phone] | | | | | | | | +--------+---------+ + + + documented as of this encounter Visit Diagnoses Not on filedocumented in this encounter"
--- OUTSIDE RECORDS SUMMARY | ~2019-09-12 | XMS | Encounter Summary ---
Demographics + + + | Address | [address] | | | [place] [address] | + + + | Home Phone [...] Author | [facility] | | | and [place] | + + + | Organization | [facility] | [...] | | | | | [place] [address] | | + + + + + | Valentín Saleh | ECON | [address] | | | | | [place] [address] | | + + + + + | Roberto Carlos Lennon | LEVI | Unknown | | + + + + + Care Team Providers + +------+ + | Care Water Gas Operator Name | Role | Phone | + +------+ + | Francois Pascal MD | PCP | | + +------+ + Encounter Details +--------+ + + + + | Date | Type | Department | Care Team | Description | +--------+ + + + + | 12/19/ | Hospital | [facility] | Francois Pascal, | Type I (juvenile | | 2012 - | Encounter | [facility] CTR [facility] | [address] | type) diabetes | | | | [address] | [address] [place], | mellitus without | | 12/21/ | | [place], [place] | [place] [address] | mention of | | 2011 | | [address] | [phone] | complication, not | | | | [phone] | | stated as | | | | | | uncontrolled (HCC); | | | | | | HTN CKD UNS W/CKD | | | | | | STAGE I THRU STAGE | | | | | | IV/UNS; Chronic | | | | | | kidney disease, | | | | | | stage III (moderate) | +--------+ + + + + Social [...] + + | insulin glargine | Inject | | 0 | 11/18/19 | | | (LANTUS) 100 | subcutaneously 67 | | | 12 | 2 | | units/mL injection | units at bedtime | | | | | + + [...] encounter Progress Notes Francois Pascal MD - 12/20/2011 1:55 PM PDT Quick Note: Ok for ma to notify patient that he has somewhat abnormal labs and would like to discuss john brody a month. documented in thi s encounter Plan of Treatment +--------+---------+ + + + | Date | Type | Specialty | Care Team | Description | +--------+---------+ + + + | 12/06/ | Office | Cardiology | MakmayelajessieStephenie, | | | 2019 | Visit | | [address] | | | | | | [place], | | | | | | [place] [address] | | | | | | [phone] | | | | | | | | +--------+---------+ + + + documented as of this encounter Procedures + +--------+ + + + | Procedure Name | Priori | Date/Time | Associated Diagnosis | Comments | | | ty | | | | + +--------+ + + + | PROTEIN/CREATININE | Routin | 12/20/2011 | Chronic kidney | Results for this | | RATIO, URINE | e | 12:18 PM | disease, stage III | procedure are in the | | | | PDT | (moderate) | results section. | + +--------+ + + + | HEMOGLOBIN A1C | Routin | 12/20/2011 | Type I (juvenile | Results for this | | | e | 10:48 AM | type) diabetes | procedure are in the | | | | PDT | mellitus without | results section. | | | | | mention of | | | | | | complication, not | | | | | | stated as | | | | | | uncontrolled (HCC) | | + +--------+ + + + | VITAMIN D, | Routin | 12/20/2011 | Chronic kidney | Results for this | | DEFICIENCY SCREEN | e | 10:00 AM | disease, stage III | procedure are in the | | (25-HYDROXY) | | PDT | (moderate) | results section. | + +--------+ + + + | CBC WITH | Routin | 12/20/2011 | HTN CKD UNS W/CKD | Results for this | | DIFFERENTIAL | e | 10:00 AM | STAGE I THRU STAGE | procedure are in the | | | | PDT | IV/UNS | results section. | + +--------+ + + + | RENAL FUNCTION PANEL | Routin | 12/20/2011 | Chronic kidney | Results for this | | | e | 10:00 AM | disease, stage III | procedure are in the | | | | PDT | (moderate) | results section. | + +--------+ + + + documented in this encounter Results Protein creatinine ratio, urine (12/20/2011 12:18 PM PDT) + + + + + + | Component | Value | Ref Range | Performed | Pathologist | | | | | At | Signature | + + + + + + | Creatinine, | 77.22Comment: NO NORMAL | mg/dL | [facility] | | | Urine, | RANGE FOR RANDOM URINE | | [facility] | | | Random | SPECIMEN | | MEDICAL | | | | | | CENTER - | | | | | | LABORATORY | | + + + + + + | Protein, | <6 | mg/dL | [facility] | | | Urine | | | [facility] | | | | | | MEDICAL | | | | | | CENTER - | | | | | | LABORATORY | | + + + + + + | PRO/CREA | NDComment: RATIO IS NOT | <0.2 | [facility] | | | RATIO,URINE | CALCULATED BECAUSE | | [facility] | | | | MEASURED VALUE FOR | | MEDICAL | | | | URINEPROTEIN IS BELOW | | CENTER - | | | | THE QUANTIFIABLE RANGE. | | LABORATORY | | + + + + + + + + | Specimen | + + | Urine specimen | | (specimen) | + + + + + + + | Performing | Address | City/State/Zipcode | Phone Number | | Organization | | | | + + + + + | [facility] | [address] | [place], [place] | [phone] | | [facility] | | [address] | | | - LABORATORY | | | | + + + + + | [facility] | [address] | [place], [place] | | | [facility] | | [address], [facility] | | | - LABORATORY | | | | + + + + + Hemoglobin A1c (12/20/2011 10:48 AM PDT) + [...] + | [facility] | [address] | [place], [place] | [phone] | | [facility] | | [address] | | | - LABORATORY | | | | + + + + + | [facility] | [address] | [place] | | | [facility] | | [address] | | | - LABORATORY | | | | + + + + + Vitamin D, 25 Hydroxy (12/20/2011 10:00 AM PDT) + + + + + + | Component | Value | Ref Range | Performed | Pathologist | | | | | At | Signature | + + + + + + | Vitamin D, | 57Comment: <20 ng/mL | 30 - 100 ng/mL | [facility] | | | 25 Hydroxy | Suggests deficiency of | | [facility] | | | | 25-OH Vitamin D.20-29 | | MEDICAL | | | | ng/mL Suggests a | | CENTER - | | | | relative insufficiency | | LABORATORY | | | | of 25-OHVitamin D.30-100 | | | | | | ng/mL Suggests a | | | | | | sufficient level of | | | | | | 25-OH Vitamin D.>100 | | | | | | ng/mL Potentially Toxic | | | | | | level of 25-OH Vitamin | | | | | | D. Blood levels of 25-OH | | | | | | vitamin D vary with the | | | | | | extent of sunexposure. | | | | | | Values tend to be | | | | | | highest in late summer | | | | | | andlowest in spring. | | | | | | Values also tend to | | | | | | decrease with age, dueto | | | | | | decreased precursor | | | | | | synthesis in the skin. | | | | + + + + + + + + | Specimen | + + | Blood specimen | | (specimen) | + + + + + + + | Performing | Address | City/State/Zipcode | Phone Number | | Organization | | | | + + + + + | [facility] | [address] | [place], [place] | [phone] | | [facility] | | [address] | | | - LABORATORY | | | | + + + + + | [facility] | [address] | [place], [place] | | | [facility] | | [address], [facility] | | | - LABORATORY | | | | + + + + + Renal function panel (12/20/2011 10:00 AM PDT) + + + + + + | Component | Value | Ref Range | Performed | Pathologist | | | | | At | Signature | + + + + + + | Glucose | 163 (H) | 70 - 109 mg/dL | [...] + + + + | Phosphorus | 4.0 [...] + + + + | Creatinine | 1.46 (H) | 0.60 - 1.30 | [facility] | | | | | mg/dL | [facility] | | | | | | MEDICAL | | | | | | CENTER - | | | | | | LABORATORY | | + + + + + + | Estimated | 35 (L)Comment: For | >60 mL/min/A | [facility] [...] + + + + | BUN/Creatin | 19.9 | 12 - 20 | [facility] | | | ine Ratio | | | [facility] | | | | | | MEDICAL | | | | | | CENTER - | | | | | | LABORATORY | | + + + + + + | Na | 135 (L) | 136 - 149 mEq/L | [facility] | | | | | | [facility] | | | | | | MEDICAL | | | | | | CENTER - | | | | | | LABORATORY | | + + + + + + | K | 4.3 | 3.5 - 5.1 mEq/l | [facility] | | | | | | [facility] | | | | | | MEDICAL | | | | | | CENTER - | | | | | | LABORATORY | | + + + + + + | Cl | 98 | 98 - 109 mEq/l | [facility] [...] + + + | Anion Gap | 13.3 | 6.0 - 17.0 | [facility] | [...] + | [facility] | [address] | [place], [place] | [phone] | | [facility] | | [address] | | | - LABORATORY | | | | + + + + + | [facility] | [address] | [place], [place] | | | [facility] | | [facility], [facility] | | | - LABORATORY | | | | + + + + + CBC w/ Differential (12/20/2011 10:00 AM PDT) + + + + + [...] + + + | Red Blood | 3.75 | 3.70 - 5.20 | [facility] | [...] + + + + | Hematocrit | 41.0 | 34.0 - 47.0 % | [facility] | | | | | | [facility] | | | | | | MEDICAL | | | | | | CENTER - | | | | | | LABORATORY | | + + + + + + | MCV | 109.4 (H) | 83.0 - 101.0 fL | [facility] | | | | | | [facility] | | | | | | MEDICAL | | | | | | CENTER - | | | | | | LABORATORY | | + + + + + + | MCH | 37.2 (H) | 28.0 - 35.0 pg | [facility] | | | | | | [facility] | | | | | | MEDICAL | | | | | | CENTER - | | | | | | LABORATORY | | + + + + + + | MCHC | 34.0 | 32.0 - 36.0 | [facility] | [...] + + + + | Platelet | 181 | 140 - 440 K/uL | [facility] | | | Count | | | [facility] | | | | | | MEDICAL | | | | | | CENTER - | | | | | | LABORATORY | | + + + + + + | % | 58.6 | 45 - 75 % | [facility] | | | Neutrophils | | | [facility] | | | | | | MEDICAL | | | | | | CENTER - | | | | | | LABORATORY | | + + + + + + | % | 22.4 | 20 - 45 % | [facility] | | | Lymphocytes | | | [facility] | | | | | | MEDICAL | | | | | | CENTER - | | | | | | LABORATORY | | + + + + + + | % Monocytes | 13.0 (H) | 4 - 12 % | [facility] | | | | | | [facility] | | | | | | MEDICAL | | | | | | CENTER - | | | | | | LABORATORY | | + + + + + + | % | 5.4 (H) | 0 - 5 % | [...] 0.1 | 0.0 - 0.1 K/uL | [facility] | | | Basophils | | | [facility] | | [...] [address] | [place] | [phone] | | [facility] | | [address] | | | - LABORATORY | | | | + + + + + | [facility] | [address] | [place], [place] | | | [facility] | | [address] | | | - LABORATORY | | | | + + + + + documented in this encounter Visit Diagnoses + + | Diagnosis | + + | Type I (juvenile type) diabetes mellitus without mention of complication, not stated | | as uncontrolled | + + | HTN CKD UNS W/CKD STAGE I THRU STAGE IV/UNS Unspecified hypertensive kidney disease | | with chronic kidney disease stage I through stage IV, or unspecified | + + | Chronic kidney disease, stage III (moderate) (HCC) Chronic kidney disease, Stage III | | (moderate) | + + documented in this encounter"
--- OUTSIDE RECORDS SUMMARY | ~2019-09-12 | XMS | Encounter Summary ---
Demographics + + + | Address | [address] | | | [place] [address] | + + + | Home Phone [...] + | Author | [facility] | | | and [place]ana | + + + | Organization | [facility] [...] | | | | | [place] [address] | | + + + + + | Valentín Saleh | ECON | [address] | | | | | [place] [address] | | + + + + + | Roberto Carlos Lennon | LEVI | [place] | | + + + + + Care Team Providers + +------+ + | Care Pulmonary Physician Name | Role | Phone | + +------+ + PCP | Unavailable | + +------+ + Encounter Details +--------+ + + + + | Date | Type | Department | Care Team | Description | +--------+ + + + + | 04/16/ | Hospital | [facility] | | | | 2009 | Encounter | MED CTR EMERGENCY | | | | | | CENTER [address] | | | | | | [place] | | | | | | [address] | | | | | | [phone] | | | +--------+ + + + [...] | | | | | | [place] [address] | | | | | | [phone] | | | | | | | | +--------+---------+ + + + documented as of this encounter Visit Diagnoses Not on filedocumented in this encounter"
--- OUTSIDE RECORDS SUMMARY | ~2019-09-12 | XMS | Encounter Summary ---
Demographics + + + | Address | [address] | | | [place] [address] | + + + | Home Phone [...] | Author | [facility] | | | and [place] | + + + | Organization | [facility] | [...] | | | | | [place] [address] | | + + + + + | Valentín Saleh | ECON | [address] | | | | | [place] [address] | | + + + + + | Roberto Carlos Lennon | LEVI | Unknown | | + + + + + Care Team Providers + +------+ + | Care Audio Visual Equipment Rental Clerk Name | Role | Phone | + +------+ + | Francois Pascal MD | PCP | | + +------+ + Encounter Details +--------+ + + + + | Date | Type | Department | Care Team | Description | +--------+ + + + + | 12/18/ | Orders Only | [facility] | Francois Pascal, | Type I (juvenile | | 2011 | | MEDIC[facility] [place] | [address] | type) diabetes | | | | [address] | [address] [place], | mellitus without | | | | [place] | [place] [address] | mention of | | | | [address] | [phone] | complication, not | | | | [phone] | | stated as | | | | | | uncontrolled ([facility]) | | | | | | (Primary [...] | | | | | | [place] [address] | | | | | | [phone] | | | | | | | [...] + | [facility] | [address] | [place], [place] | [phone] | | [facility] | | [address] | | | - LABORATORY | | | | + + + + + | [facility] | [address] | [place], [place] | | | [facility] | | [id number] [place] [address] | | | - LABORATORY | | | | + + + + + documented in this encounter Visit Diagnoses + + | Diagnosis | + + | Type I (juvenile type) diabetes mellitus without mention of complication, not stated | | as uncontrolled - Primary | + + documented in this encounter"
--- OUTSIDE RECORDS SUMMARY | ~2019-09-12 | XMS | Encounter Summary ---
Demographics + + + | Address | [address] | | | [place] [address] | + + + | Home Phone [...] Author | [facility] | | | and [place] | + + + | Organization | [facility] | | | and [...] | | | | | [place] [address] | | + + + + + | Valentín Saleh | ECON | [address] | | | | | [place] [address] | | + + + + + | Roberto Carlos Lennon | LEVI | Unknown | | + + + + + Care Team Providers + +------+ + | Care In Home Tutor Name | Role | Phone | + [...] + | 02/16/ | Telephone | [facility] | Francois Pascal, | Appointment | | 2015 | | MEDICINE [address] [place] [address] | [address] | | | | | [place], | [address] [place], | | | | | [place] [address] | [place] [address] | | | | | [phone] | [phone] | | | | | | | [...] | | | | | | [place] [address] | | | | | | [phone] | | | | | | | | +--------+---------+ + + + documented as of this encounter Visit Diagnoses Not on filedocumented in this encounter"
--- OUTSIDE RECORDS SUMMARY | ~2019-09-12 | XMS | Encounter Summary ---
Demographics + + + | Address | [address] | | | [place] [address] | + + + | Home Phone | | + + + | Preferred Language | Unknown | + + + | Marital Status | | + + + | Congregational Affiliation | Unknown | + + + | Race | Unknown | + + + | Ethnic Group | Unknown | + + + Author + + + | Author | [facility] | | | and [place] | + + + | Organization | [facility] [...] | | | | | [place] [address] | | + + + + + | Valentín Saleh | ECON | [address] | | | | | [place] [address] | | + + + + + | Roberto Carlos Lennon | LEVI | Unknown | | + + + + + Care Team Providers + +------+ + | Care Retarder Operator Name | Role | Phone | [...] | instability | [address] | [place] | | | | [address] | [address] | [place], | | | | | (ICD-10-CM) | [place] | [place] [address] | | | | | - [address] | [place] | Phone: | | | | | (ICD-9-CM) - | [address] | [phone] | | | | | Gait | Phone: | Fax: | | | | | instability | [phone] | [phone] | | | | | Procedures | Fax: | | | | | | pt eval | [phone] | | +--------+ + + + + + Encounter Details +--------+---------+ + + + | Date | Type | Department | Care Team | Description | +--------+---------+ + + + | 01/23/ | Office | [facility] | Francois Pascal, | Posture imbalance | | 2015 | Visit | MED CTR THERAPY PT | [address] | (Primary Dx); | | | | OP [address] | [address] [place], | Impaired functional | | | | [place] | [place] [address] | mobility, balance, | | | | [address] | [phone] | gait, and endurance; | | | | [phone] | | Left ankle pain | | | | | Kely Quinn B, PT | | | | | | [address] | | | | | | [place] | | | | | | [address] | | | | | | | [...] encounter Progress Notes Kely Green, PT - 01/23/2015 9:49 AM PSTFormatting of this note might be different from t sridevi original. [facility] CTR THERAPY PT OP [address] [place] [address] Physical Therapy Daily Treatment Note Date: 01/23/2015 Patient Information Patient Name: Alyson Lennon Date of : 1930 Age: 84 y.o. Encounter Diagnoses Code Name Primary? R29.3 Posture imbalance Yes Z74.09 Impaired functional mobility, balance, gait, and endurance M25.572 Left ankle pain Date of Onset: 10/24/14 Referring Provider: Francois Pascal MD Rehab Precautions Office Visit from 12/24/2014 in [facility] CTR THERAPY PT OP Rehab Precautions Precautions Comments fall risk Start Time: 944 Stop time: 1029 Duration: 45 minutes Timed Treatment Codes: 45 minutes # of PT Visits to Date: 7 Subjective: pt reports that overall she is able to do her HEP daily and has noticed an impr ovement with her left ankle ROM resulting in better balance/walking Pain Assessment Pain Scale Used: NUMERIC Pain Rating Pre Assessment: 4 Pain Rating Post Assessment: 1 Location: left ankle Objective: Manual Therapy: left ankle grade III-IV mobs to increase DF/PF Exercise/Activity 12/24/14 01/08/15 01/13/15 01/23/15 Left ankle DF/PF 1x10 Left ankle "Alphabet" x DF stretch on incline board 3x30 sec 3x30 sec 3x30 sec (stairs) HEP Rocker board 4x20 4x20 4x20 each, light resistance, Static balance light UE support Balance activites Blue foam: eyes closed, small [place], SLS 1-0 UE support squats 2x20 2x15 (on incline) 2x15 on incline Step lunge: left 1x20, OP Heel raises 2x15 2x20 2x15 Gait activities 180 feet x3 Resisted gait; focus on heel-toe 400 feet, 4WW Focus on heel-toe 375 feet, SPC Heel-toe Increased gait speed Left ankle ROM DF/PF: post 8-0-15 deg 20-0-10 deg 15-0-15 deg Pre:5-0-30 Post:20-0-30 Assessment: pt demonstrated significantly improve gait pattern after manual therapy; able t o take longer step length and improved heel-toe pattern with verbal cues. Pt also demonstra rachel improved balance after increased ROM with better ankle/stepping strategy did have occasi onal LOB but able to self correct. Pt tolerated all activities well without increase in left ankle pain. Pt would benefit from cont. Therapy to progress left ankle ROM/strength in orde r to improve gait and dynamic balance to improve safety at home and in the community. Plan: Continue with manual therapy, strengthening, and gait/balance training. Electronically signed by: Kely Green PT, 01/23/2015 10:41 Patient Name: Alyson Lennon/: 1930/ documented in this encou nter Plan of Treatment +--------+---------+ + + + | Date | Type | Specialty | Care Team | Description | +--------+---------+ + + + | 12/06/ | Office | Cardiology | Stephenie Paul, | | | 2019 | Visit | | [address] | | | | | | [place], | | | | | | [place] [address] | | | | | | [phone] | | | | | | | [...]
--- OUTSIDE RECORDS SUMMARY | ~2019-09-12 | XMS | Encounter Summary ---
Demographics + + + | Address | [address] | | | [place] [address] | + + + | Home Phone [...] | [facility] | | | and [place]ana | + + + | Organization | [facility] | [...] | | | | | [place] [address] | | + + + + + | Valentín Saleh | ECON | [address] | | | | | [place] [address] | | + + + + + | Roberto Carlos Lennon | LEVI | Unknown | | + + + + + Care Team Providers + +------+ + | Care Equipment Oiler Name | Role | Phone | + +------+ + | Francois Pascal MD | PCP | | + +------+ + Encounter Details +--------+ + + + + | Date | Type | Department | Care Team | Description | +--------+ + + + + | 12/02/ | Hospital | [facility] | [place], | CHRONIC KIDNEY | | 2015 | Encounter | MED CTR LABORATORY | [address] | DISEASE STAGE III | | | | [address] [place] | [address] [facility] | (MODERATE) | | | | [place] | [address] [place] | | | | | [address] | [address] | | | | | [phone] | | | +--------+ + + + [...] | | | | | | mellitus) ([facility]) | | | | | [...] | | | | | [place], | | | | | | [place] [address] | | | | | | [phone] | | | | | | | | +--------+---------+ + + + documented as of this encounter Procedures + +--------+ + + + | Procedure Name | Priori | Date/Time | Associated Diagnosis | Comments | | | ty | | | | + +--------+ + + + | PARATHYROID HORMONE, | Routin | 12/02/2014 | CHRONIC KIDNEY | Results for this | | INTACT | e | 9:10 AM | DISEASE STAGE III | procedure are in the | | | | PDT | (MODERATE) | results section. | + +--------+ + + + | RENAL FUNCTION PANEL | Routin | 12/02/2014 | CHRONIC KIDNEY | Results for this | | | e | 9:10 AM | DISEASE STAGE III | procedure are in the | | | | PDT | (MODERATE) | results section. | + +--------+ + + + documented in this encounter Results Parathyroid Hormone, Intact (12/02/2014 9:10 AM PDT) + +-------+ + + + | Component | Value | Ref Range | Performed | Pathologist | | | | | At | Signature | + +-------+ + + + | PTH Intact | 43 | 12 - 88 pg/mL | [facility] [...] + | [facility] | [address] | [place] | [phone] | | [facility] | | [address] | | | - LABORATORY | | | | + + + + + Renal Function Panel (12/02/2014 9:10 AM PDT) + + + + [...] + + + + | Glucose | 89 | 70 - 109 mg/dL | [facility] [...] + + + + | Creatinine | 1.37 (H) | 0.60 - 1.30 | [facility] [...] mL/min/1.73m2 | [facility] | | | [facility] | RATE,ESTIMATED | | MEDICAL | | | | mL/min/1.71c7Owmm than | | CENTER - | | [...] + + + + | Albumin | 3.3 | 3.2 - 5.0 g/dL | [facility] | | | | | | [facility] | | | | | | MEDICAL | | | | | | CENTER - | | | | | | LABORATORY | | + + + + + + | Phosphorus | 4.4 | 2.5 - 4.6 mg/dL | [facility] | | | | | | [facility] | | | | | | MEDICAL | | | | | | CENTER - | | | | | | LABORATORY | | + + + + + + | BUN/Creatin | 14.6 | | [facility] | | | [address]e [address] | [place] | [phone] | | [facility] | | [address] | | | - LABORATORY | | | | + + + + + documented in this encounter Visit Diagnoses + + | Diagnosis | + + | CHRONIC KIDNEY DISEASE STAGE III (MODERATE) Chronic kidney disease, Stage III | | (moderate) | + + documented in this encounter"
--- OUTSIDE RECORDS SUMMARY | ~2019-09-12 | XMS | Encounter Summary ---
Demographics + + + | Address | [address] | | | [place] [address] | + + + | Home Phone [...] Author | [facility] | | | and Clarkeana | + + + | Organization | [facility] | [...] | | | | | [place] [address] | | + + + + + | Valentín Saleh | ECON | [address] | | | | | [place] [address] | | + + + + + | Roberto Carlos Lennon | LEVI | [place] | | + + + + + Care Team Providers + +------+ + | Care Human Resources Team Member Name | Role | Phone | + +------+ + PCP | Unavailable | + +------+ + Encounter Details +--------+ + + + + | Date | Type | Department | Care Team | Description | +--------+ + + + + | 11/11/ | Hospital | [facility] | | | | 2006 | Encounter | MED CTR XRAY [address] | | | | | [place] | | | | | | [place] [address] | | | | | | [phone] | | | +--------+ + + + [...] | | | | | | [place] [address] | | | | | | [phone] | | | | | | | | +--------+---------+ + + + documented as of this encounter Visit Diagnoses Not on filedocumented in this encounter"
--- OUTSIDE RECORDS SUMMARY | ~2019-09-12 | XMS | Encounter Summary ---
Demographics + + + | Address | [address] | | | [place] [address] | + + + | Home Phone [...] | Author | [facility] | | | and [place] | + + + | Organization | [facility] | [...] | | | | | [place] [address] | | + + + + + | Valentín Saleh | ECON | [address] | | | | | [place] [address] | | + + + + + | Roberto Carlos Lennon | LEVI | Unknown | | + + + + + Care Team Providers + +------+ + | Care Snuff Grinder And Screener Name | Role | Phone | + +------+ + | Francois Pascal MD | PCP | | + +------+ + Reason for Visit + +--------+ + | Reason | Onset | Comments | | | Date | | + +--------+ + | Medication Refill | 03/29/ | | | | 2016 | | + +--------+ + Encounter Details +--------+--------+ + + + | Date | Type | Department | Care Team | Description | +--------+--------+ + + + | 03/29/ | Refill | [facility] | Francois Pascal, | Medication Refill | | 2016 | | MEDICINE [address] | [address] | | | | | [place], | [address] [place], | | | | | [place] [address] | [place] [address] | | | | | [phone] | [phone] | | | | | | | [...] | Visit | | MD Bob Vasquez [address] | | | | | | [place], | | | | | | [place] [address] | | | | | | [phone] | | | | | | | | +--------+---------+ + + + documented as of this encounter Visit Diagnoses + + | Diagnosis | + + | Type 2 diabetes mellitus with hyperglycemia, with long-term current use of insulin | | (HCC) - Primary | + + documented in this encounter"
--- OUTSIDE RECORDS SUMMARY | ~2019-09-12 | XMS | Encounter Summary ---
Demographics + + + | Address | [address] | | | [place] [address] | + + + | Home Phone [...] | Author | [facility] | | | and [place] | + + + | Organization | [facility] | | | and [place] | + + + | Address | Unknown | + + + | Phone | Unavailable | + + + Support + + + + + | Name | Relationship | Address | Phone | + + + + + | Sigrid Lennon | ECON | [address] | | | | | [place] [address] | | + + + + + | Valentín Saleh | ECON | [address] | | | | | [place] [address] | | + + + + + | Roberto Carlos Lennon | LEVI | Unknown | | + + + + + Care Team Providers + +------+ + | Care Environmental Protection Forester Name | Role | Phone | + [...] | | 2019 | Outreach | [facility] [place] | [address] | | | | | [address] | [address] [place], | | | | | [place] | [place] [address] | | | | | [address] | [phone] | | | | | [phone] | | | +--------+ + + + [...] this encounter Miscellaneous Notes Telephone Encounter - FATOUMATA MCNALLY - 07/03/2018 12:34 PM PDT 07/03/18 Alyson Lennon has been identified as having one or more care gaps listed in the table bel ow (red box): Last Office Visit: 05/31/2018 Next Office Visit: No appointment scheduled Health Topic Patient Goal Patient Most Recent Data Recommended Patient Action Step Blood Pressure Below 140/90 114/68 05/31/2018 Cholesterol Take a cholesterol lowering medication Taking HbA1c Below 8 is good 9.7 10/03/2017 Eye Exam Check as directed by eye doctor 02/17/2016 Foot Exam Check once a year 02/17/2016 Immunizations Get Immunized Due for: - Td - Shingles Breast Cancer Screening Get tested Due To Primary Care Provider: Francois Pascal MD: Note if you agree with the services due: Office Visit for: Sign or remove pended order(s) as per your assessment - (see Investigation Clerk): Orders Placed This Encounter Pending Hemoglobin A1C Ordered On: 07/03/2018 Approve/Deny Ready for Outreach Communication? Select Yes. Thank you, Population Health Support Team documented in this encount er Plan of Treatment +--------+---------+ + + + | Date | Type | Specialty | Care Team | Description | +--------+---------+ + + + | 12/06/ | Office | Cardiology | Stephenie Paul, | | | 2019 | Visit | | MD Bob Vasquez [address] | | | | | | 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
--- OUTSIDE RECORDS SUMMARY | ~2019-09-12 | XMS | Encounter Summary ---
Demographics + + + | Address | [address] | | | [place] [address] | + + + | Home Phone [...] Author + + + | Author | [facility] | + + + | Organization | [facility] | + + + | Address | Unknown | + + + | Phone | Unavailable | + + + Support + + + + + | Name | Relationship | Address | Phone | + + + + + | Sigrid Lennon | LEVI | [address] | | | | | [place] [address] | | + + + + + | None None | ECON | Unknown | Unavailable | + + + + + Care Team Providers + +------+ + | Care Equalizing Saw Operator Name | Role | Phone | [...] | | | Surgery Services at | [address] | | | | | [address] | [place], [place] | | | | | [address] | [address] | | | | | Physician's | [phone] | | | | | Charles, [facility] floor | | | | | | [place], [place] | | | | | | [address] | | | | | | [phone] | | | +--------+ + + + [...]
--- OUTSIDE RECORDS SUMMARY | ~2019-09-12 | XMS | Encounter Summary ---
Demographics + + + | Address | [address] | | | [place] [address] | + + + | Home Phone [...] | Author | [facility] | | | and [place] | + + + | Organization | [facility] | [...] | | | | | [place] [address] | | + + + + + | Valentín Saleh | ECON | [address] | | | | | [place] [address] | | + + + + + | Roberto Carlos Lennon | LEVI | [place] | | + + + + + Care Team Providers + +------+ + | Care Assistant Professor Of History Name | Role | Phone | + +------+ + PCP | Unavailable | + +------+ + Encounter Details +--------+ + + + + | Date | Type | Department | Care Team | Description | +--------+ + + + + | 09/24/ | Hospital | [facility] | | | | 2004 | Encounter | [facility] CTR LAB[facility]ATORY | | | | | | [address] | | | | | | [place] | | | | | | [address] | | | | | | [phone] | | | +--------+ + + + [...] | | | | | | [place] [address] | | | | | | [phone] | | | | | | | | +--------+---------+ + + + documented as of this encounter Visit Diagnoses Not on filedocumented in this encounter"
--- OUTSIDE RECORDS SUMMARY | ~2019-09-12 | XMS | Encounter Summary ---
Demographics + + + | Address | [address] | | | [place] [address] | + + + | Home Phone [...] + | Author | [facility] | | | and [place] | + + + | Organization | [facility] | | [...] | | | | | [place] [address] | | + + + + + | Valentín Saleh | ECON | [address] | | | | | [place] [address] | | + + + + + | Roberto Carlos Lennon | LEVI | Unknown | | + + + + + Care Team Providers + +------+ + | Care Hot Baller Name | Role | Phone | + +------+ + | Francois Pascal MD | PCP | | + +------+ + Reason for Visit +---------+--------+ + | Reason | Onset | Comments | | | Date | | +---------+--------+ + | Results | 01/09/ | | | | 2014 | | +---------+--------+ + Encounter Details +--------+ + + + + | Date | Type | Department | Care Team | Description | +--------+ + + + + | 01/09/ | Telephone | [facility] | Francois Pascal, | Results | | 2014 | | MEDICINE [address] | [address] | | | | | [address] [place], | [address] [place], | | | | | [place] [address] | [place] [address] | | | | | [phone] | [phone] | | | | | | | [...] Telephone Encounter - Airam Menjivar RN - 01/09/2015 2:35 PM PSTCalled and left infor mation with per Dr Pascal message. elephone Encounte r - Airam Menjivar RN - 01/09/2015 2:34 PM PST----- Message from Francois Pascal MD sent at 01/09/2015 11:49 PST ----- Ok for ma or nurse to notify pt that there may be slight lab abnormalities but that they do not require follow up prior to next recommended visit but if they would like to discuss the y can rtc earlier. d ocumented in this encounter Plan of [...] | | | | | | [place] [address] | | | | | | [phone] | | | | | | | | +--------+---------+ + + + documented as of this encounter Visit Diagnoses Not on filedocumented in this encounter"
--- OUTSIDE RECORDS SUMMARY | ~2019-09-12 | XMS | Encounter Summary ---
Demographics + + + | Address | [address] | | | [place] [address] | + + + | Home Phone [...] Author | [facility] | | | and [place] | + + + | Organization | [facility] | | | and [...] | | | | | [place] [address] | | + + + + + | Valentín Saleh | ECON | [address] | | | | | [place] [address] | | + + + + + | Roberto Carlos Lennon | LEVI | Unknown | | + + + + + Care Team Providers + +------+ + | Care Cobol Programmer Name | Role | Phone | + +------+ + | Francois Pascal MD | PCP | | + +------+ + Reason for Referral Follow Up (Routine) +--------+ + + + + + | Status | Reason | Specialty | Diagnoses / | Referred By | Referred To | | | | | Procedures | Contact | Contact | +--------+ + + + + + | Closed | Specialty | Cardiology | Diagnoses | Moras[place], | [place], | | | Services | | | Francois Tello MD | MD Stephenie | | | Required | | Atherosclero | [address] | | | | sis of | [address] | [address] | | | | | [place] | [place] | [place], | | | | | coronary | [place], [place] | [place] [address] | | | | | artery of | [address] | Phone: | | | | | [place] heart | Phone: | [phone] | | | | | without | [phone] | Fax: | | | | | angina | Fax: | [phone] | | | | | pectoris | [phone] | | | | | | Procedures | | | | | | | FOLLOW UP | | | +--------+ + + + + + Reason for Visit + +--------+ + | Reason | Onset | Comments | | | Date | | + +--------+ + | Referral (Follow up) | 04/10/ | MORALFREDITO/REFERRAL REQUEST/ DOS 05/03/19 | | | 2019 | | + +--------+ + Encounter Details +--------+ + + + + | Date | Type | Department | Care Team | Description | +--------+ + + + + | 04/10/ | Telephone | [facility] | Francois Pascal, | Referral (Follow up) | | 2019 | | [facility] [place] [facility] | [address] | (MORASCH/REFERRAL | | | | MEDICINE [place] | [address] [place], | REQUEST/ DOS | | | | [address] | [place] [address] | 05/03/19) | | | | [address] [place], | [phone] | | | | | [place] [address] | | | | | | [phone] | | | +--------+ + + + [...] Telephone Encounter - Diamond Sebastian RN - 04/10/2019 3:05 PM PSTReferral reviewed and signed. elephone Encounter - Kacy Delaney, Car Park Attendant - 04/10/2019 3:04 PM PSTReferral larry lynn review and sign if appropriate ele phone Encounter - Lisa Garay - 04/10/2019 2:39 PM PSTPatient is scheduled for a [facility] in Cardiology on 05/03/[address] Corado Please create updated referral Dx: Coronary artery disease involving [place] coronary artery of [place] heart without angina pe ctoris I25.10 documented in this en counter Plan of Treatment +--------+---------+ + + + | Date | Type | Specialty | Care Team | Description | +--------+---------+ + + + | 12/06/ Office | Cardiology | Stephenie Palu, | | | 2019 | Visit | | MD [address] | | | | | | [place], | | | | | | [place] [address] | | | | | | [phone] | | | | | | | | +--------+---------+ + + + + + +--------+ + + | Name | Type | Priori | Associated Diagnoses | Order Schedule | | | | ty | | | + + +--------+ + + | Ambulatory referral | Outpatient | Routin | Atherosclerosis of | Ordered: 04/10/2019 | | to Cardiology | Referral | e | [place] coronary | | | | | | artery of [place] | | | | | | heart without angina | | | | | | pectoris | | + + +--------+ + + documented as of this encounter Visit Diagnoses + + | Diagnosis | + + | Atherosclerosis of [place] coronary artery of [place] heart without angina pectoris - | | Primary | + + documented in this encounter"
--- OUTSIDE RECORDS SUMMARY | ~2019-09-12 | XMS | Encounter Summary ---
Demographics + + + | Address | [address] | | | [place] [address] | + + + | Home Phone [...] | [facility] | | | and [place] | + + + | Organization | [facility] | | [...] | | | | | [place] [address] | | + + + + + | Valentín Saleh | ECON | [address] | | | | | [place] [address] | | + + + + + | Roberto Carlos Lennon | LEVI | Unknown | | + + + + + Care Team Providers + +------+ + | Care Director Of Retail Analytics Name | Role | Phone | + +------+ + | Francois Pascal MD | PCP | | + +------+ + Reason for Visit + + + | Reason | Comments | + + + | Follow-up | no concerns | + + + Encounter Details +--------+---------+ + + + | Date | Type | Department | Care Team | Description | +--------+---------+ + + + | 03/29/ | Office | [facility] | Francois Pascal, | OSTEOARTHRITIS, | | 2012 | Visit | MEDICINE [place] | [address] | ANKLE, LEFT (Primary | | | | [address] | [address] [place], | Dx); HYPERTENSION | | | | [place] | [place] [address] | NEC; Hyperlipidemia; | | | | [address] | [phone] | DM (diabetes | | | | [phone] | | mellitus) (HCC); | | | | | | Gout, unspecified; | | | | | | CHRONIC [...] + + + | Blood Pressure | 120/58 | 03/29/2012 9:46 AM | | | | | PST | | + + + + + | Pulse | 58 | 03/29/2012 9:46 AM | | | | | PST | | + + + + + | Temperature | 36.1 C (97 F) | 03/29/2012 9:46 AM | | | | | PST | | + + + + + | Respiratory Rate | 12 | 03/29/2012 9:46 AM | | | | | PST | | + + + + + | Oxygen Saturation | - | - | | + + + + + | Inhaled Oxygen | - | - | | | Concentration | | | | + + + + + | Weight | 75.8 kg (167 lb) | 03/29/2012 9:46 AM | | | | | PST | | + + + + + | Height | - | - | | + + + + + | Body Mass Index | 30.06 | 01/06/2012 10:32 AM | | | | | PDT | | + + + + + documented in this encounter Progress Notes Francois Pascal MD - 03/29/2012 10:19 AM PSTFormatting of this note might be [...] In the morning is runs in the 90-130s. She is compliant with her medications, she denies polyuria, polydipsia or polyphagia, She admi ts to having the right diet. lantus 105 u qhs, novolog 15-19 in am, 20-27 prior to lunch and 30-34 prior to dinner. She declines further dietary consult. She tries to watch her di et "with every bit she takes" CKD, She urinates normally. There is no blood in her urine, She feels as though she drink s plenty of fluids. Gout, takes her allopurinol daily two times [...] VSD Father 50 Pneumonia Family Hx of Hamer's chorea Sister and 2 brothers: CAD, Airam's Disease to [place] - with 2 Healthy Children No kidney disease in family. Social History: Reviewed history from 08/11/2011 and no changes required: Born in [facility] for 46 years. and Remarried 2 sons local. Patient has never smoked. Alcohol Use - no Exercise: None Caffeine: Decaf only Living Situation: Lives with spuse Review of Systems Constitutional: no fever, No appetite change, no fatigue. HENT: Negative for ear pain, No nosebleeds,no rhinorrhea,no trouble swallowing and no sinus pressure. Eyes: Negative for pain and no visual [...] RR&R /s M Abd S,NT,ND,BS+ Ext, no CC but trace edema B Neuro Non-focal Assessment: 1. OSTEOARTHRITIS, ANKLE, LEFT 2. HYPERTENSION NEC 3. Hyperlipidemia 4. DM (diabetes mellitus) 5. Gout, unspecified 6. CHRONIC KIDNEY DISEASE STAGE III (MODERATE) Plan: She looks and feels fine, Her HBA1C is 8.1. She will add three units of novolog to each d ose. RTC 3 months with HBA1C prior. documented [...] | | | | | | [place] [address] | | | | | | [phone] | | | | | | | | +--------+---------+ + + + documented as of this encounter Results Comprehensive Metabolic Panel (06/23/2012 9:32 AM PDT) + + + + + + | Component | Value | Ref Range | Performed | Pathologist | | | | | At | Signature | + + + + + + | Glucose | 215 (H) | 70 - 109 mg/dL | [...] + + + + | ALT | 23 | 6 - 45 IU/L | [facility] [...] Total | 7.0 | 6.0 - 7.8 gm/dL | [facility] [...] + + + + | Creatinine | 1.09 | 0.60 - 1.30 | [facility] | | | | | mg/dL | [facility] | | | | | [facility] | | | | | | [facility] - | | | | | | LABORATORY | | + + + + + + | Estimated | 48 (L)Comment: For | >60 mL/min/A | [facility] [...] + + | BUN/Creatin | 19.3 | 12 - 20 | [facility] | | | ine Ratio | | | [facility] | | [...] + + + | Anion Gap | 11.9 | 6.0 - 17.0 | [facility] | | | | | | [facility] [...] At | + + + | | [facility] | | | [facility] | | | - LABORATORY | + + + + + + + + | Performing | Address | City/State/Zipcode | Phone Number | | Organization | | | | + + + + + | [facility] | [address] | [place] | [phone] | | [facility] | | [address] | | | - LABORATORY | | | | + + + + + | [facility] | [address] | [place], [place] | | | [facility] | | [address] | | | - LABORATORY | | | | + + + + + Hemoglobin A1C (06/23/2012 9:32 AM PDT) + + + + + + | Component | Value | Ref Range | Performed | Pathologist | | | | | At | Signature | + + + + + + | Hemoglobin | 7.2 (H)Comment: | 4.3 - 5.8 % | [facility] | | | A1c | DIABETIC PATIENT RANGES: | | [facility] | | | | 6.2-7.0% = [...] | [address] | [place] | [phone] | | [facility] | | [address] | | | - LABORATORY | | | | + + + + + | [facility] | [address] | [place], [place] | | | [facility] | | [address], [facility] | | | - LABORATORY | | | | + + + + + documented in this encounter Visit Diagnoses + + | Diagnosis | + + | OSTEOARTHRITIS, ANKLE, LEFT - Primary Osteoarthrosis, unspecified whether generalized | | or localized, ankle and foot | + + | HYPERTENSION NEC Complications affecting other specified body systems, hypertension | + + | Hyperlipidemia Other and unspecified hyperlipidemia | + + | DM (diabetes mellitus) (HCC) Type II or unspecified type diabetes mellitus without | | mention of complication, not stated as uncontrolled | + + | Gout, unspecified | + + | CHRONIC KIDNEY DISEASE STAGE III (MODERATE) Chronic kidney disease, Stage III | | (moderate) | + + documented in this encounter
--- OUTSIDE RECORDS SUMMARY | ~2019-09-12 | XMS | Encounter Summary ---
Demographics + + + | Address | [address] | | | [place] [address] | + + + | Home Phone [...] [facility] | | | and [place] | + + + | Organization | [facility] | | | [...] | | | | | [place] [address] | | + + + + + | Valentín Saleh | ECON | [address] | | | | | [place] [address] | | + + + + + | Roberto Carlos Lennon | LEVI | [place] | | + + + + + Care Team Providers + +------+ + | Care Care Manager Cna Name | Role | Phone | + +------+ + PCP | Unavailable | + +------+ + Encounter Details +--------+ + + + + | Date | Type | Department | Care Team | Description | +--------+ + + + + | 05/27/ | Hospital | [facility] | Francois Pascal, | | | 2008 | Encounter | [facility] LAB[facility] | [address] | | | | | [address] [place] | [address], | | | | | [place] | [place] [address] | | | | | [address] | [phone] | | | | | [phone] | | | +--------+ + + + [...] | | | | | | [place] [address] | | | | | | [phone] | | | | | | | | +--------+---------+ + + + documented as of this encounter Visit Diagnoses Not on filedocumented in this encounter"
--- OUTSIDE RECORDS SUMMARY | ~2019-09-12 | XMS | Encounter Summary ---
Demographics + + + | Address | [address] | | | [place] [address] | + + + | Home Phone | | + + + | Preferred Language | Unknown | + + + | Marital Status | | + + + | Confucianist Affiliation | Unknown | + + + | Race | Unknown | + + + | Ethnic Group | Unknown | + + + Author + + + | Author | [facility] | | | and [place] | + + + | Organization | [facility] | | | and [...] | | | | | [place] [address] | | + + + + + | Valentín Saleh | ECON | [address] | | | | | [place] [address] | | + + + + + | Roberto Carlos Lennon | LEVI | [place] | | + + + + + Care Team Providers + +------+ + | Care Psych Rn Name | Role | Phone | + +------+ + PCP | Unavailable | + +------+ + Encounter Details +--------+ + + + + | Date | Type | Department | Care Team | Description | +--------+ + + + + | 03/04/ | Hospital | [facility] | Francois Pascal, | | | 2008 | Encounter | MED CTR XRAY [address] | [address] | | | | | [place] | [address] [place], | | | | | [place] [address] | [place] [address] | | | | | [phone] | [phone] | | | | | | | [...] | | | | | | [place] [address] | | | | | | [phone] | | | | | | | | +--------+---------+ + + + documented as of this encounter Visit Diagnoses Not on filedocumented in this encounter"
--- OUTSIDE RECORDS SUMMARY | ~2019-09-12 | XMS | Encounter Summary ---
Demographics + + + | Address | [address] | | | [place] [address] | + + + | Home Phone [...] | Author | [facility] | | | and [place] | + + + | Organization | [facility] | | [...] | | | | | [place] [address] | | + + + + + | Valentín Saleh | ECON | [address] | | | | | [place] [address] | | + + + + + | Roberto Carlos Lennon | LEVI | Unknown | | + + + + + Care Team Providers + +------+ + | Care Collections Analyst Name | Role | Phone | + +------+ + | Francois Pascal MD | PCP | | + +------+ + Encounter Details +--------+ + + + + | Date | Type | Department | Care Team | Description | +--------+ + + + + | 02/02/ | [facility] | [facility] | Francois Pascal, | | | 2016 | Encounter | MED CTR LAB[facility]ATORY | [address] | | | | | [address] [place] | [address], | | | | | [place] | [place] [address] | | | | | [address] | [phone] | | | | | [phone] | | | +--------+ + + + [...] | | 0 | | | | [facility] | mouth Daily. | | | | [...] | | | | | | [place] [address] | | | | | | [phone] | | | | | | | | +--------+---------+ + + + documented as of this encounter Visit Diagnoses Not on filedocumented in this encounter"
--- OUTSIDE RECORDS SUMMARY | ~2019-09-12 | XMS | Encounter Summary ---
Demographics + + + | Address | [address] | | | [place] [address] | + + + | Home Phone | | + + + | Preferred Language | Unknown | + + + | Marital Status | | + + + | Islam Affiliation | Unknown | + + + | Race | Unknown | + + + | Ethnic Group | Unknown | + + + Author + + + | Author | [facility] | | | and [place] | + + + | Organization | [facility] | [...] | | | | | [place] [address] | | + + + + + | Valentín Saleh | ECON | [address] | | | | | [place] [address] | | + + + + + | Roberto Carlos Lennon | LEVI | Unknown | | + + + + + Care Team Providers + +------+ + | Care Valet Name | Role | Phone | + +------+ + | Francois Pascal MD | PCP | | + +------+ + Reason for Visit + + + | Reason | Comments | + + + | Follow-up | discuss labs | + + + Encounter Details +--------+---------+ + + + | Date | Type | Department | Care Team | Description | +--------+---------+ + + + | 03/21/ | Office | [facility] | Francois Pascal, | Diabetes mellitus | | 2013 | Visit | [facility] [employer] | [address] | (HCC) (Primary Dx) | | | | [address] | [address] [place], | | | | | [place] | [place] [address] | | | | | [address] | [phone] | | | | | [phone] | | | +--------+---------+ + + + [...] + | Blood Pressure | 130/70 | 03/21/2013 10:34 AM | | | | | PST | | + + + + + | Pulse | 67 | 03/21/2013 10:34 AM | | | | | PST | | + + + + + | Temperature | 36.6 C (97.8 F) | 03/21/2013 10:34 AM | | | | | PST | | + + + + + | Respiratory Rate | 16 | 03/21/2013 10:34 AM | | | | | PST | | + + + + + | Oxygen Saturation | 95% | 03/21/2013 10:34 AM | | | | | PST | | + + + + + | Inhaled Oxygen | - | - | | | Concentration | | | | + + + + + | Weight | 75.3 kg (166 lb) | 03/21/2013 10:34 AM | | | | | PST | | + + + + + | Height | 158.8 cm (5' 2.5") | 03/21/2013 10:34 AM | | | | | PST | | + + + + + | Body Mass Index | 29.88 | 03/21/2013 10:34 AM | | | | | PST | | + + + + + documented in this encounter Progress Notes Francois Pascal MD - 03/21/2013 10:58 AM PSTFormatting of this note might be different f rom the original. Subjective: Patient ID: Alyson Lennon is a 82 y.o. female. HPI DM2 she is on lantus 110-120 and novolog, and Januvia (she understands the risk with th is). She notices that her glucoses are high [...] watch her diet "with every bit she takes", [place] caused a few pr oblems with her diet. Past Medical History: Reviewed history from 06/24/2011 [...] VSD Father 50 Pneumonia Family Hx of Rossford's chorea Sister and 2 brothers: CAD, Rossford's Disease to Sigrid - with 2 Healthy Children No kidney disease in family. Social History: Reviewed history from 08/11/2011 and no changes required: Born in [facility] for [facility] years. and Remarried [...] no gross lesions Assessment: 1. Diabetes mellitus sitaGLIPtin (JANUVIA) 100 mg tablet, Hemoglobin A1C Plan: Her Diabetes control has slipped a bit, She looks and feels fine. Repeat HBA1C prior to f ollow up in three months. Glucose log. She will increase her novolog 2 units with each dejah l. documented in this encounter Plan of Treatment +--------+---------+ + + + | Date | Type | Specialty | Care Team | Description | +--------+---------+ + + + | 12/06/ | Office | Cardiology | Stephenie Paul, | | | 2020 | Visit | | MD Bob Sheehan | | | | | | [place], | | | | | | [place] [address] | | | | | | [phone] | | | | | | | | +--------+---------+ + + + documented as of this encounter Results Hemoglobin A1C (05/22/2013 10:26 AM PDT) + +---------+ + + + | Component | Value | Ref Range | Performed | Pathologist | | | | | At | Signature | + +---------+ + + + | Hemoglobin | 7.7 (H) | 4.3 - 5.8 % | [facility] | | | A1c | | | [facility] | | | | | | [facility] | | | | | | [facility] - | | | | | | LABORATORY | | + +---------+ + + + | Estimated | 174 | mg/dL | [facility] | | | [...] + | [facility] | [address] | [place], [place] | [phone] | | [facility] | | [address] | | | - LABORATORY | | | | + + + + + | [facility] | [address] | [place], [place] | | | [facility] | | [address] [place] [address] | | | - LABORATORY | | | | + + + + + documented in this encounter Visit Diagnoses + + | Diagnosis | + + | Diabetes mellitus (HCC) - Primary Type II or unspecified type diabetes mellitus | | without mention of complication, not stated as uncontrolled | + + documented in this encounter
--- OUTSIDE RECORDS SUMMARY | ~2019-09-12 | XMS | Encounter Summary ---
Demographics + + + | Address | [address] | | | [place] [address] | + + + | Home Phone | | + + + | Preferred Language | Unknown | + + + | Marital Status | | + + + | Sikhism Affiliation | Unknown | + + + | Race | Unknown | + + + | Ethnic Group | Unknown | + + + Author + + + | Author | [facility] | | | and [place] | + + + | Organization | [facility] [...] | | | | | [place] [address] | | + + + + + | Valentín Saleh | ECON | [address] | | | | | [place] [address] | | + + + + + | Roberto Carlos Lennon | LEVI | Unknown | | + + + + + Care Team Providers + +------+ + | Care Legal Mediator Name | Role | Phone | + [...] | Francois Tello MD | [address] | | | | | (shortness | [address] | [place], | | | | | of breath) | [address] | [place] | | | | | Procedures | [place] | [address] | | | | | ECHO | [place] | Phone: | | | | | Complete | [address] | [phone] | | | | | | Phone: | Fax: | | | | | | [phone] | [phone] | | | | | | Fax: | | | | | | | [phone] | | +--------+--------+ + + + + [...] | Francois Tello MD | [address] | | | | | (shortness | [address] | [place], | | | | | of breath) | [address] | [place] | | | | | Procedures | [place] | [address] | | | | | ECHO | [place], [place] | Phone: | | | | | Complete | [address] | [phone] | | | | | | Phone: | Fax: | | | | | | [phone] | [phone] | | | | | | Fax: | | | | | | | [phone] | | +--------+--------+ + + + + Encounter Details +--------+ + + + + | Date | Type | Department | Care Team | Description | +--------+ + + + + | 11/25/ | Hospital | [facility] | Francois Pascal, | SOB (shortness of | | 2015 | Encounter | MED CTR ECHO [address] | MD [address] | breath) | | | | [place] | [address] [place], | | | | | [place] [address] | [place] [address] | | | | | [phone] | [phone] | | | | | | | [...] | | | | | | mellitus) ([facility]) | | | | | | + [...] | | | | | | [place] [address] | | | | | | [phone] | | | | | | | [...] Performed At | + + + | [facility] ECHOCARDIOGRAM REPORT | [place] | | STUDY DATE: 11/25/2014 PATIENT NAME: Alyson Lennon : | [facility] | | 1930 PCP: Francois Pascal MD | [facility] | | CLINICAL HISTORY/DIAGNOSIS: SOB, [...] | | | PhD FACC 11/25/2014 11:43 Hand Miter Operator: Rolando | | | Zilliox, RDCS, RVT, RDMS | | + + + + + + + + | Performing | Address | City/State/Zipcode | Phone Number | | Organization | | | | + + + + + | [facility] | [address] | [place] | [phone] | | [facility] | | [address] | | | - IMAGING | | [...]
--- OUTSIDE RECORDS SUMMARY | ~2019-09-12 | XMS | Encounter Summary ---
Demographics + + + | Address | [address] | | | [place] [address] | + + + | Home Phone | | + + + | Preferred Language | Unknown | + + + | Marital Status | | + + + | Episcopal Affiliation | Unknown | + + + | Race | Unknown | + + + | Ethnic Group | Unknown | + + + Author + + + | Author | [facility] | | | and [place] | + + + | Organization | [facility] | [...] | | | | | [place] [address] | | + + + + + | Valentín Saleh | ECON | [address] | | | | | [place] [address] | | + + + + + | Roberto Carlos Lennon | LEVI | Unknown | | + + + + + Care Team Providers + +------+ + | Care Inspector Screen Printing Name | Role | Phone | + [...] | | | | Left ankle | [place], | [address] | | | | | pain | Glenn Richards MD | [place], | | | | | Procedures | [address] | [place] | | | | | [place] | [facility] | [address] | | | | | ARTHROCENTES | [place], [place] | Phone: | | | | | [place] | [address] | [phone] | | | | | ASPIR&/INJ | Phone: | Fax: | | | | | MAJOR | [phone] | [phone] | | | | | JT/BURSA W/O | Fax: | | | | | | [place] | [phone] | | | | | | TRIAMCINOLON | | | | | | | E ACET INJ | | | | | | | NOS, 10 MG | | | | | | | MT | | | | | | | FLUOROSCOPIC | | | | | | | GUIDANCE | | | | | | | NEEDLE | | | | | | | PLACEMENT | | | | | | | Left | | | | | | | intraarticul | | | | | | | ar ankle | | | | | | | inj-APPT | | | | | | | 5/10 | | | +--------+--------+ + + + + Encounter Details +--------+ + + + + | Date | Type | Department | Care Team | Description | +--------+ + + + + | 07/14/ | Hospital | [facility] | Glenn Miramontes | Post-traumatic | | 2016 | Encounter | MED CTR XRAY [address] | T, [address] | osteoarthritis of | | | | [address] | [place], [place] | left ankle (Primary | | | | [place] [address] | [address] | Dx); Chronic pain of | | | | [phone] | | left ankle | | | | | Automatic Punch Press Operator, [facility] | | | | | | [place] [...] +---------+ + + | Blood Pressure | 141/61 | 07/15/2015 4:02 PM | | | | | PDT | | + +---------+ + + | Pulse | 67 | 07/15/2015 4:02 PM | | | | | PDT [...] | | | | | | hyperglycemia ([facility]) [...] | | | | | | [place] [address] | | | | | | [phone] | | | | | | | | +--------+---------+ + + + documented as of this encounter Procedures + +--------+ + + + | Procedure Name | Priori | Date/Time | Associated Diagnosis | Comments | | | ty | | | | + +--------+ + + + | FL ASPIRATION | Routin | 07/15/2015 | Chronic pain of | Results for this | | INJECTION MAJOR | e | 4:10 PM | left ankle | procedure are in the | | JOINT LEFT | | PDT | | results section. | + +--------+ + + + documented in this encounter Results FL Major Joint Injection Left (07/15/2015 4:10 PM PDT) + + | Specimen | + + | | + + + + + | Narrative | Performed At | + + + | 07/15/2015 LEFT INTRAARTICULAR ANKLE INJECTION CLINICAL HISTORY: | [facility] | | CHRONIC LEFT ANKLE PAIN AND POST-TRAUMATIC ARTHRITIS Alyson Leyva | [facility] | | Saji presents to the fluoroscopy suite for a [facility] | | fluoroscopically-guided left intraarticular ankle [...] [address] 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 | + + | Chronic pain of left ankle | + + documented in this encounter Administered Medications + +--------+ +------+------+------+ | Medication Order | MAR | Action | Dose | Rate | Site | | | Action | Date | | | | + +--------+ +------+------+------+ | iohexol (OMNIPAQUE 300) 300 | Given | 07/15/19 | 1 mL | | | | mg/mL injection 1 mL 1 mL, | | 16 4:12 | | | | | Other, ONCE PRN, Other, Starting | | PM PDT | | | | | 07/15/15 at 1603, For 1 dose, | | | | | | | Radiology | | | | | | + +--------+ +------+------+------+ +---+---+ | | | +---+---+ + +-------+ +-------+---+ + | lidocaine buffered 1% injection | Given | 07/15/19 | 6 mLs | | Other | | 6 mL 6 mL, Intradermal, ONCE, | | 16 4:10 | | | (Comment | | 07/15/15 at 1630, For 1 dose, | | PM PDT | | | ) | | Radiology | | | | | | + +-------+ +-------+---+ + +---+---+ | | | +---+---+ + +-------+ +---------+---+---+ | ropivacaine (NAROPIN) 5 mg/mL | Given | 07/15/19 | 0.5 mLs | | | | (0.5%) injection 0.5 mL 0.5 mL, | | 16 4:15 | | | | | Other, ONCE, e 07/15/15 at 1630, | | PM PDT | | | | | For 1 dose | | | | | | + +-------+ +---------+---+---+ +---+---+ | | | +---+---+ + +-------+ +-------+---+---+ | triamcinolone acetonide | Given | 07/15/19 | 40 mg | | | | (KENALOG-40) 40 mg/mL injection | | 16 4:15 | | | | | 40 mg 40 mg, Intra-articular, | | PM PDT | | | | | ONCE, 07/15/15 at 1630, For 1 | | | | | | | dose, Shake well. Not for IV | | | | | | | use., Radiology | | | | | | + +-------+ +-------+---+---+ +---+---+ | | | +---+---+ documented in this encounter"
--- OUTSIDE RECORDS SUMMARY | ~2019-09-12 | XMS | Encounter Summary ---
Demographics + + + | Address | [address] | | | [place] [address] | + + + | Home Phone [...] | Author | [facility] | | | and [place] | + + + | Organization | [facility] | | | and [place] | + + + | Address | Unknown | + + + | Phone | Unavailable | + + + Support + + + + + | Name | Relationship | Address | Phone | + + + + + | Sigrid Lennon | ECON | [address] | | | | | [place] [address] | | + + + + + | Valentín Saleh | ECON | [address] | | | | | [place] [address] | | + + + + + | Roberto Carlos Lennon | LEVI | [place] | | + + + + + Care Team Providers + +------+ + | Care Demolition Hammer Operator Name | Role | Phone | + +------+ + PCP | Unavailable | + +------+ + Encounter Details +--------+ + + + + | Date | Type | Department | Care Team | Description | +--------+ + + + + | 09/30/ | Hospital | [facility] | | | | 2000 | Encounter | MED CTR XRAY [address] | | | | | | [place] | | | | | | [place] [address] | | | | | | [phone] | | | +--------+ + + + [...] 2019 | Visit | | MD Bob Sheehna | | | | | | [place], | | | | | | [place] [address] | | | | | | [phone] | | | | | | | | +--------+---------+ + + + documented as of this encounter Visit Diagnoses Not on filedocumented in this encounter"
--- OUTSIDE RECORDS SUMMARY | ~2019-09-12 | XMS | Encounter Summary ---
Demographics + + + | Address | [address] | | | [place] [address] | + + + | Home Phone [...] Author | [facility] | | | and [place] | + + + | Organization | [facility] | | | [...] | | | | | [place] [address] | | + + + + + | Valentín Saleh | ECON | [address] | | | | | [place] [address] | | + + + + + | Roberto Carlos Lennon | LEVI | [place] | | + + + + + Care Team Providers + +------+ + | Care Veterans Adviser Name | Role | Phone | + +------+ + PCP | Unavailable | + +------+ + Encounter Details +--------+ + + + + | Date | Type | Department | Care Team | Description | +--------+ + + + + | 01/13/ | Hospital | [facility] | | | | 1993 | Encounter | MED CTR XRAY [address] | | | | | | [place] | | | | | | [place] [address] | | | | | | [phone] | | | +--------+ + + + [...] | | | | | | [place] [address] | | | | | | [phone] | | | | | | | | +--------+---------+ + + + documented as of this encounter Visit Diagnoses Not on filedocumented in this encounter"
--- OUTSIDE RECORDS SUMMARY | ~2019-09-12 | XMS | Encounter Summary ---
Demographics + + + | Address | [address] | | | [place] [address] | + + + | Home Phone [...] | Author | [facility] | | | and [place] | + + + | Organization | [facility] | | | and [...] | | | | | [place] [address] | | + + + + + | Valentín Saleh | ECON | [address] | | | | | [place] [address] | | + + + + + | Roberto Carlos Lennon | LEVI | Unknown | | + + + + + Care Team Providers + +------+ + | Care Early Childhood Director Name | Role | Phone | [...] (Primary Dx) | | | | [address] [facility] [address] | [address] [facility] | | | | | [place], [place] | [address] [place] | | | | | [address] | [address] | | | | | [phone] | | | +--------+ + + + [...] 2019 | Visit | | MD Rojas [facility] | | | | | | [place], | | | | | | [place] [id number] | | | | | | [phone] | | | | | | | | +--------+---------+ + + + documented as of this encounter Visit Diagnoses + + | Diagnosis | + + | Vitamin D deficiency - Primary Unspecified vitamin D deficiency | + + documented in this encounter"
--- OUTSIDE RECORDS SUMMARY | ~2019-09-12 | XMS | Encounter Summary ---
Demographics + + + | Address | [address] | | | [place] [address] | + + + | Home Phone [...] Author | [facility] | | | and [place] | + + + | Organization | [facility] | | [...] | | | | | [place] [address] | | + + + + + | Valentín Saleh | ECON | [address] | | | | | [place] [address] | | + + + + + | Roberto Carlos Lennon | LEVI | Unknown | | + + + + + Care Team Providers + +------+ + | Care Pump Erector Name | Role | Phone | [...] | | | 2019 | | [facility] [place] | [address] | | | | | [address] | [address] [place], | | | | | [place] | [place] [address] | | | | | [address] | [phone] | | | | | [phone] | | | +--------+ + + + [...] [place], | | | | | | [place] [address] | | | | | | [phone] | | | | | | | [...]
--- OUTSIDE RECORDS SUMMARY | ~2019-09-12 | XMS | Encounter Summary ---
Demographics + + + | Address | [address] | | | [place] [address] | + + + | Home Phone [...] Author | [facility] | | | and [place] | + + + | Organization | [facility] | | [...] | | | | | [place] [address] | | + + + + + | Valentín Saleh | ECON | [address] | | | | | [place] [address] | | + + + + + | Roberto Carlos Lennon | LEVI | Unknown | | + + + + + Care Team Providers + +------+ + | Care Bellows Charger Assembler Name | Role | Phone | [...] | disease, | [address] | RECRUITMENT ADVERTISING MANAGER [address] | | | | | stage 3 | [place] | [address] | | | | | (moderate) | [place] | [address] | | | | | (HCC) | [address] | [place], | | | | | Hypertension | Phone: | [place] [address] | | | | | , renal | [phone] | Phone: | | | | | disease | Fax: | [phone] | | | | | Procedures | [phone] | Fax: | | | | | [place] OFFICE | | [phone] | | | | | OUTPATIENT | | | | | | | VISIT 25 | | | | | | | MINUTES | | | +--------+--------+ + + + + Encounter Details +--------+---------+ + + + | Date | Type | Department | Care Team | Description | +--------+---------+ + + + | 04/07/ | Office | [facility] [place] | [place], | CHRONIC KIDNEY | | 2018 | Visit | NEPHROLOGY [address] | [address] | DISEASE STAGE III | | | | [address] | [address] | (MODERATE) (Primary | | | | [place] | [address] [place] [address] | Dx); Hypertension, | | | | [address] | [address] | renal disease; | | | | [phone] | | Uncontrolled type 2 | | | | | | diabetes mellitus | | | | | | with diabetic | | | | | | nephropathy, | | | | | | unspecified long | | | | | | term insulin use | | | | | | status ([facility]) | +--------+---------+ + + + Social History [...] encounter Progress Notes Kemar Herndon ARNP - 04/07/2017 1:45 PM PSTFormatting of this [...] hip. Since then hope s been at [facility] for rehab. She is ambulating [...] Date Noted DM (diabetes mellitus) ([facility]) 12/27/2011 Priority: High Glossitis Priority: High Hyperlipidemia, [...] Stomatitis 07/19/2016 Reactive depression 07/19/2016 Atrial fibrillation ([facility]) 07/12/2016 Skin cancer 05/31/2016 Essential hypertension with [...] respiratory collapse. 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 Note Last Updated: 12/16/2015 Problem list hematology oncology consultant utility Preventative health care 03/23/2012 Note Last Updated: 09/27/2012 CRSC:03/23/2002normal except for redundancy and atonicity Next Due: Mammo:03/02/2012 benign Next:03/02/2013 Pap:03/24/2009 negative Next: CAROTID STENOSIS AMAUROSIS FUGAX DEMYELINATING DISEASE, CENTRAL NERVOUS SYSTEM FRACTURE, ANKLE, LEFT VITAMIN D DEFICIENCY Hypertension, renal disease DM type 2, uncontrolled, with renal complications (HCC) Coronary artery disease involving diomede coronary 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 0 Cpqkusr-Qutoakbhx-Qwxkwfr D (CALCIUM 500 PO) Take 1 tablet [...] 2 diabetes mellitus with diabetic nephropathy, unspecified usp i nsulin use status ([facility]) E11.21 250.42 Continue follow up with primary care for management. E11.65 583.81 Return in about 6 months (around 10/05/2017). Labs: renal panel, Hb A1c, PTH, vitamin D 25 OH Patient verbalized agreement and understanding of above plan. 25 minutes spent face to face with patient with greater than 50% of time in counseling, edu cation and coordination of care as noted above. CC: MD Renee Martinez [facility] documented i n this encounter Plan of [...] | | | | | | [place] [address] | | | | | | [phone] | | | | | | | [...] 2 diabetes mellitus with diabetic nephropathy, unspecified usp | | insulin use status | + + documented in this encounter
--- OUTSIDE RECORDS SUMMARY | ~2019-09-12 | XMS | Encounter Summary ---
Demographics + + + | Address | [address] | | | [place] [address] | + + + | Home Phone [...] Author | [facility] | | | and [place] | + + + | Organization | [facility] | [...] | | | | | [place] [address] | | + + + + + | Valentín Saleh | ECON | [phone] | | | | | [place] [address] | | + + + + + | Roberto Carlos Lennon | LEVI | Unknown | | + + + + + Care Team Providers + +------+ + | Care Early Childhood Lead Teacher Name | Role | Phone | + +------+ + | Francois Pascal MD | PCP | | + +------+ + Encounter Details +--------+ + + + + | Date | Type | Department | Care Team | Description | +--------+ + + + + | 11/23/ | Hospital | [facility] | Francois Pascal, | CHRONIC KIDNEY | | 2013 | Encounter | MED CTR LAB[facility] | [address] | DISEASE STAGE III | | | | [address] | [address] [place], | (MODERATE) | | | | [place] | [place] [address] | | | | | [address] | [phone] | | | | | [phone] | | | +--------+ + + + [...] | TAKE ONE TABLET BY | 90 each | 1 | 09/15/19 | | | tablet | MOUTH EVERY DAY | | | 13 | 3 | + + + +---------+ + + | LANTUS 100 UNIT/ML | INJECT 110 UNITS QS | 50 mL | 1 | 10/04/19 | | | injection | AT BEDTIME | | | 13 | 3 | [...] 2019 | Visit | | [address] | | | | | | [place], | | | | | | [place] [address] | | | | | | [phone] | | | | | | | | +--------+---------+ + + + documented as of this encounter Procedures + +--------+ + + + | Procedure Name | Priori | Date/Time | Associated Diagnosis | Comments | | | ty | | | | + +--------+ + + + | MICROALBUMIN/CREATIN | Routin | 11/23/2012 | CHRONIC KIDNEY | Results for this | | INE RATIO, URINE | e | 9:10 AM | DISEASE STAGE III | procedure are in the | | TEST | | PDT | (MODERATE) | results section. | + +--------+ + + + | RENAL FUNCTION PANEL | Routin | 11/23/2012 | CHRONIC KIDNEY | Results for this | | | e | 9:02 AM | DISEASE STAGE III | procedure are in the | | | | PDT | (MODERATE) | results section. | + +--------+ + + + documented in this encounter Results Microalbumin/Creatinine Ratio, Urine (11/23/2012 9:10 AM PDT) + + + + + + | Component | Value | Ref Range | Performed | Pathologist | | | | | At | Signature | + + + + + + | Microalbumi | 26 (H) | <18 mg/L | [facility] | | | n, Urine, | | | [facility] | | | [facility] | | | [...] [address] | [place] | [phone] | | [facility] | | [address] | | | - LABORATORY | | | | + + + + + | [facility] | [address] | [place] | | | [facility] | | [address], [facility] | | | - [...] | 1.18 | 0.60 - 1.30 | [facility] | | | | | mg/dL | [facility] | | | | | | MEDICAL | | | | | | CENTER - | | | | | | LABORATORY | | + + + + + + | Estimated | 44 (L)Comment: For | >60 mL/min/A | [facility] | | | GFR | -Americans, | [...] | 17.8 | 12 - 20 | [facility] | | | ine Ratio | | [...] | + + + + + | [facility] [facility] | [address] | [place], [place] | [phone] | | [facility] | | [address] | | | - LABORATORY | | | | + + + + + | [facility] | [address] | [place], [place] | | | [facility] | | [address], [facility] | | | - LABORATORY | | | | + + + + + documented in this encounter Visit Diagnoses + + | Diagnosis | + + | CHRONIC KIDNEY DISEASE STAGE III (MODERATE) Chronic kidney disease, Stage III | | (moderate) | + + documented in this encounter"
--- OUTSIDE RECORDS SUMMARY | ~2019-09-12 | XMS | Encounter Summary ---
Demographics + + + | Address | [address] | | | [place] [address] | + + + | Home Phone [...] Author | [facility] | | | and [place] | + + + | Organization | 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 Alyson is moving from [facility] to [facility], [facility] HTN, CAD, Afib on xarelto, Followed by [...] and 2 brothers: CAD, [place]'s Disease to [place] - with 2 Healthy Children No kidney disease in family. Social History: Born in [facility] for [facility] years. and [...] | 12/06/ | Office | Cardiology | Stepheine Paul, | | | 2019 | Visit | | MD [address] | | | | | | [place], | | | | | | [place] [address] | | | | | | [phone] | | | | | | | [...] + + + | [facility] | [address] | [place] | [phone] | | [facility] [place] | | [address] | | | [facility] | | [...]
--- OUTSIDE RECORDS SUMMARY | ~2019-09-12 | XMS | Encounter Summary ---
Demographics + + + | Address | [address] | | | [place] [address] | + + + | Home Phone [...] | | | | | [place] [address] | | + + + + + | Valentín Saleh | ECON | [phone] | | | | | [place] [address] | | + + + + + | Roberto Carlos Lennon | LEVI | Unknown | | + + + + + Care Team Providers + +------+ + | Care Pricing Supervisor Name | Role | Phone | + +------+ + | Francois Pascal MD | PCP | | + +------+ + Reason for Visit +--------+--------+ + | Reason | Onset | Comments | | | Date | | +--------+--------+ + | Other | 02/10/ | | | | 2015 | | +--------+--------+ + Encounter Details +--------+ + + + + | Date | Type | Department | Care Team | Description | +--------+ + + + + | 02/10/ | Telephone | [facility] | Stephenie Paul, | Other | | 2015 | | CARDIOLOGY [address] | MD [address] | | | | | [place], | [place], | | | | | [place] [address] | [place] [address] | | | | | [phone] | [phone] | | | | | | | [...] this encounter Miscellaneous Notes Telephone Encounter - Marion Robins - 02/11/2016 2:38 PM PSTPatient called in, states t hat she is having ankle surgery with Dr. Trevor Ochoa who wants her to see her cardiologi st prior to her ankle surgery. Patient states that she saw Dr. Corado not too long ago and wa nts to know if she needs another cardiology appointment. Spoke to Jessica Forbes/Cardio RN with [facility] on hold, per Jessica Forbes, Dr. Corado addressed patient's upcoming ankle surgery during his last appointment with the patient, so patient does not need another appointment, but we nee d to fax the office notes to Dr. Ochoa. Advised patient that she does not need another ap pointment and that we would fax Dr. Corado's last office note of 01-12-[address] Ochoa. Office note was faxed to Dr. Ochoa at fax number [phone]. Notation on cover-sheet: "Please review #1 on assessment regarding pt's ankle surgery." documented in this encounter Plan of Treatment +--------+---------+ + + + | Date | Type | Specialty | Care Team | Description | +--------+---------+ + + + | 12/06/ | Office | Cardiology | Stephenie Paul, | | | 2019 | Visit | | [address] | | | | | | [place], | | | | | | [place] [address] | | | | | | [phone] | | | | | | | | +--------+---------+ + + + documented as of this encounter Visit Diagnoses Not on filedocumented in this encounter
--- OUTSIDE RECORDS SUMMARY | ~2019-09-12 | XMS | Encounter Summary ---
Demographics + + + | Address | [address] | | | [place] [address] | + + + | Home Phone [...] | Author | [facility] | | | and [place] | + + + | Organization | [facility] | [...] | | | | | [place] [address] | | + + + + + | Valentín Saleh | ECON | [address] | | | | | [place] [address] | | + + + + + | Roberto Carlos Lennon | LEVI | Unknown | | + + + + + Care Team Providers + +------+ + | Care Asp Net C Developer Name | Role | Phone | [...] Visit | CARDIOLOGY [address] | Charla, TEACHER OF THE SIGHT IMPAIRED [address] | artery, unspecified | | | | [place], | [place], | laterality (Primary | | | | [place] [address] | [place] [address] | Dx); Amaurosis | | | | [phone] | [phone] | fugax; Coronary | | | | | | artery disease | | | | | | involving chitina | | | | | | coronary artery of | | | | | | chitina heart without | | | | | | angina pectoris; | | | | | | Congestive heart | | | | | | failure, unspecified | | | | | | HF chronicity, | | | | | | unspecified heart | | | | | | failure type ([facility]); | | | | | | Atrial fibrillation, | | | | | | unspecified type | | | | | | ([facility]); Essential | | | | | | [...] very active. She is now living in [facility] and she is not ambulating at [...] renal complications Glossitis Coronary artery disease involving chitina coronary artery of chitina heart without angina pectoris Hyperlipidemia, mixed AMI [...] rectally Daily as needed for Constipation. 0 Mjuhkmc-Gkycyuyzo-Njlzupi D (CALCIUM 500 PO) Take 1 tablet [...] RESULTS reviewed during visit today primarily from [facility]: LIPID Lab Results Component Value Date CHOL [...] Extensive history of coronary artery disease involving chitina coronary artery of chitina heart without angina pectoris: A. Status post [...] at all. She is living in a fdc.There is no signs and symptoms of overt [...] this chart may have been created with [employer] voice recognition software. Occasi onal wrong-word or [...] 2019 | Visit | | MD [address] | | | | | | [place], | | | | | | [place] [address] | | | | | | [phone] | | | | | | | [...] involving | | | | | | chitina coronary | | | | | | artery of chitina | | | | | | heart [...] | | | | | GARCIA ALAMO ([id number]) on | | | | | | [...] + + | Coronary artery disease involving chitina coronary artery of chitina heart without | | angina pectoris | + + | Congestive heart failure, unspecified HF chronicity, unspecified heart failure type | | (HCC) | + + | Atrial fibrillation, unspecified type (HCC) | + + | Essential hypertension with goal blood pressure less than 130/80 | + + documented in this encounter
--- OUTSIDE RECORDS SUMMARY | ~2019-09-12 | XMS | Encounter Summary ---
Demographics + + + | Address | [address] | | | [place] [address] | + + + | Home Phone [...] | Author | [facility] | | | and [place] | + + + | Organization | [facility] | [...] | | | | | [place] [address] | | + + + + + | Valentín Saleh | ECON | [address] | | | | | [place] [address] | | + + + + + | Roberto Carlos Lennon | LEVI | Jeyson | | + + + + + Care Team Providers + +------+ + | Care Pulverizer Tender Name | Role | Phone | + +------+ + PCP | Unavailable | + +------+ + Encounter Details +--------+ + + + + | Date | Type | Department | Care Team | Description | +--------+ + + + + | 09/26/ | Hospital | [facility] | | | | 2006 | Encounter | MED CTR LABORATORY | | | | | | [address] | | | | | | [place] | | | | | | [address] | | | | | | [phone] | | | +--------+ + + + [...] | | | | | | [place] [address] | | | | | | [phone] | | | | | | | | +--------+---------+ + + + documented as of this encounter Visit Diagnoses Not on filedocumented in this encounter"
--- OUTSIDE RECORDS SUMMARY | ~2019-09-12 | XMS | Encounter Summary ---
Demographics + + + | Address | [address] | | | [place] [address] | + + + | Home Phone [...] | Author | [facility] | | | and [place] | + + + | Organization | [facility] | | | and [...] | | | | | [place] [address] | | + + + + + | Valentín Saleh | ECON | [address] | | | | | [place] [address] | | + + + + + | Roberto Carlos Lennon | LEVI | Unknown | | + + + + + Care Team Providers + +------+ + | Care Centrifugal Wax Molder Name | Role | Phone | + [...] | 07/17/ | Refill | [facility] | Francois Pascal, | Medication Refill | | 2020 | | [facility] | [address] | | | | | [address] | [address] [place], | | | | | [place] | [place] [address] | | | | | [address] | [phone] | | | | | [phone] | | | +--------+--------+ + + + [...] | | | | | | [place] [address] | | | | | | [phone] | | | | | | | | +--------+---------+ + + + documented as of this encounter Visit Diagnoses + + | Diagnosis | + + | Dyslipidemia Other and unspecified hyperlipidemia | + + documented in this encounter"
--- OUTSIDE RECORDS SUMMARY | ~2019-09-12 | XMS | Encounter Summary ---
Demographics + + + | Address | [address] | | | [place] [address] | + + + | Home Phone | | + + + | Preferred Language | Unknown | + + + | Marital Status | | + + + | Samaritan Affiliation | Unknown | + + + | Race | Unknown | + + + | Ethnic Group | Unknown | + + + Author + + + | Author | [facility] | | | and [place] | + + + | Organization | [facility] [...] | | | | | [place] [address] | | + + + + + | Valentín Saleh | ECON | [address] | | | | | [place] [address] | | + + + + + | Roberto Carlos Lennon | LEVI | Unknown | | + + + + + Care Team Providers + +------+ + | Care Potato Chip Maker Name | Role | Phone | [...] + | 11/13/ | Telephone | [facility] | Francois Pascal, | Illness | | 2014 | | MEDICINE [address] | [address] | | | | | [address] [place], | [address] [place], | | | | | [place] [address] | [place] [address] | | | | | [phone] | [phone] | | | | | | | [...] be able to make it to the [facility] on Tuesday for the tests. Transferred to [...] | | | | | | [place] [address] | | | | | | [phone] | | | | | | | | +--------+---------+ + + + documented as of this encounter Visit Diagnoses Not on filedocumented in this encounter
--- OUTSIDE RECORDS SUMMARY | ~2019-09-12 | XMS | Encounter Summary ---
Demographics + + + | Address | [address] | | | [place] [address] | + + + | Home Phone [...] | [facility] | | | and [place] | + + + | Organization | [facility] | [...] | | | | | [place] [address] | | + + + + + | Valentín Saleh | ECON | [address] | | | | | [place] [address] | | + + + + + | Roberto Carlos Lennon | LEVI | Unknown | | + + + + + Care Team Providers + +------+ + | Care Speech Pathology Assistant Name | Role | Phone | + +------+ + | Francois Pascal MD | PCP | | + +------+ + Reason for Visit + +--------+ + | Reason | Onset | Comments | | | Date | | + +--------+ + | Medication Refill | 07/28/ | | | | 2016 | | + +--------+ + Encounter Details +--------+--------+ + + + | Date | Type | Department | Care Team | Description | +--------+--------+ + + + | 07/28/ | Refill | [facility] | Francois Pascal, | Medication Refill | | 2016 | | MEDICINE [address] | [address] | | | | | [place], | [address] [place], | | | | | [place] [address] | [place] [address] | | | | | [phone] | [phone] | | | | | | | [...] this encounter Miscellaneous Notes Telephone Encounter - Jacy Feng - 07/29/2016 1:42 PM PDTRx has been [facility] elephone Encounter - Airam Perry RN - 07/29/2016 11:55 AM PDTPrescription sent to front office administrator [facility] Encounter - Airam Menjivar RN - 07/29/2016 8:39 AM PDTFax [facility] or to [facility] elephone Encounter - Epifanio Harris - 07/28/2016 3:23 PM PDTContact/C aller: Renee Moncada Contact Number: [phone] Provider/Nurse: Morasch Medication HYDROcodone-acetaminophen (NORCO) 5-325 mg per tablet Quantity 30 (they are asking for double amount) Amount of medication remaining None Last refill date 07-13-16 Pharmacy: [facility] Last Appointment: 07-19-16 Next Appointment: 08-19-16 documented in is encounter Plan of Treatment +--------+---------+ + + + | Date | Type | Specialty | Care Team | Description | +--------+---------+ + + + | 12/06/ | Office | Cardiology | Stephenie Paul, | | | 2019 | Visit | | MD [address] | | | | | | [place], | | | | | | [place] [address] | | | | | | [phone] | | | | | | | | +--------+---------+ + + + documented as of this encounter Visit Diagnoses Not on filedocumented in this encounter"
--- OUTSIDE RECORDS SUMMARY | ~2019-09-12 | XMS | Encounter Summary ---
Demographics + + + | Address | [address] | | | [place] [address] | + + + | Home Phone [...] | Author | [facility] | | | and [place] | + + + | Organization | [facility] | | | and [place] | + + + | Address | Unknown | + + + | Phone | Unavailable | + + + Support + + + + + | Name | Relationship | Address | Phone | + + + + + | Sigrid Lennon | ECON | [address] | | | | | [place] [address] | | + + + + + | Valentín Saleh | ECON | [address] | | | | | [place] [address] | | + + + + + | Roberto Carlos Lennon | LEVI | Unknown | | + + + + + Care Team Providers + +------+ + | Care Salesperson Hearing Aids Name | Role | Phone | + +------+ + | Francois Pascal MD | PCP | | + +------+ + Encounter Details +--------+---------+ + + + | Date | Type | Department | Care Team | Description | +--------+---------+ + + + | 12/19/ | Office | [facility] | Francois Pascal, | DM (diabetes | | 2014 | Visit | MED CTR DIABETES | [address] | mellitus) ([facility]) | | | | EDUCATION [address] | [address] [place], | (Primary Dx) | | | | [place], | [place] [address] | | | | | [place] [address] | [phone] | | | | | [phone] | | | | | | | [...] documented as of this encounter Progress Notes Chrissy Muhammad RN - 12/19/2013 1:39 PM PDTJoy is not joined by her who prefe rs to await her in the lobby and drink coffee. I have encouraged her to bring him to visits since they both cook and eat together. Alyson reports that Dr. Pascal has advised her to increase her fast acting insulin to 30u bef ore each meal. I reviewed the symptoms and treatment of hypoglycemia and gave her three pack ets of glucose tablets. We reviewed the food label which she has yet to read at home or in the store. She took a co py with her today as well as an A1c handout with her results. She is performing virtually no exercise but agrees to really try to begin doing water exerc ise at the [facility]. Teaching again regarding the importance of increasing metabolism through physical activity however simple. She continues to check her feet daily and has a current dental exam and cleaning. She has h er diabetic eye exam next week. I suggested that she have a normal blood sugar for her exam so that she receives the correct prescription for glasses. She was given a simple picture chart for rotation of insulin sites. She will continue her goals to read food labels and perform exercise. Otherwise her goals a re completed. She doubts that she will attend support groups or group sessions. 30 minute visit. Some understanding of teaching. Alyson prefers to be discharged from diabetic education but agrees to call me for questions or concerns. document ed in this encounter Plan of Treatment +--------+---------+ + + + | Date | Type | Specialty | Care Team | Description | +--------+---------+ + + + | 12/06/ | Office | Cardiology | Stephenie Paul, | | | 2020 | Visit | | [address] | | | | | | [place], | | | | | | [place] [address] | | | | | | [phone] | | | | | | | [...]
--- OUTSIDE RECORDS SUMMARY | ~2019-09-12 | XMS | Encounter Summary ---
Demographics + + + | Address | [address] | | | [place] [address] | + + + | Home Phone [...] Author | [facility] | | | and Clarkeana | + + + | Organization | [facility] | | [...] + | Valentín Saleh | ECON | [id number] | | | | | [place] [address] | | + + + + + | Roberto Carlos Lennon | LEVI | Unknown | | + + + + + Care Team Providers + +------+ + | Care Consumer Analyst Name | Role | Phone | + +------+ + | Francois Pascal MD | PCP | | + +------+ + Encounter Details +--------+---------+ + + + | Date | Type | Department | Care Team | Description | +--------+---------+ + + + | 02/02/ | Office | [facility] | Stephenie Paul, | Coronary artery | | 2018 | Visit | CARDIOLOGY [address] [place] | disease involving | | | | [place], | [place], | duckwater coronary | | | | [place] [address] | [place] [address] | artery of duckwater | | | | [phone] | [phone] | heart without angina | | | | | | pectoris (Primary | | | | | | Dx) | +--------+---------+ + + + Social History [...] + + + | Blood Pressure | 110/60 | 02/02/2018 1:30 PM | | | | | PST | | + + + + + | Pulse | 56 | 02/02/2018 1:30 PM | | | | | PST | | + + + + + | Temperature | - | - | | + + + + + | Respiratory Rate | 14 | 02/02/2018 1:30 PM | | | | | PST | | + + + + + | Oxygen Saturation | - | - | | + + + + + | Inhaled Oxygen | - | - | | | Concentration | | | | + + + + + | Weight | 64.6 kg (142 lb 8 | 02/02/2018 1:30 PM | | | | oz) | PST | | + + + + + | Height | 167.6 cm (5' 6") | 02/02/2018 1:30 PM | | | | | PST | | + + + + + | Body Mass Index | 23 | 02/02/2018 1:30 PM | | | | | PST [...] of this encounter Patient Instructions Patient Instructions Mei Colon RN - 02/02/2018 1:30 PM PST For teeth extraction, hold Eliquis for 2 days prior, restart the evening of the procedure Follow up appointment: 1 year Provider: Stephenie Paul MD Date: Check-In Time: documented in this encounter Progress Notes Stephenie Paul MD - 02/02/2018 1:30 PM PSTFormatting of this note might be different f rom the original. PATIENT NAME: Alyson Lennon : 1930: AGE: 87 y.o. PRIMARY CARE: Francois Pascal MD OUTPATIENT FOLLOW UP VISIT Date of Service: 02/02/2018 HISTORY OF PRESENT ILLNESS: Alyson Lennon is a 87 y.o. female with a history of coronary artery disease, atrial fibri llation, essential hypertension, mixed hyperlipidemia, and type 2 diabetes, stage III chroni c kidney disease. Today she is being seen for follow up on coronary artery disease. She was last seen 08/02/17 at which time patient was to continue with medical regimen. Sin ce that time, patient been living at [facility]. Today, patient is feeling good with no cardiac symptom. Patient is physically inactive but does physical therapy for twenty minutes a day. There is no chest pain or chest discomfort both at rest and on exertio n. Patient denies breathlessness. There is no palpitation dizziness or lightheadedness. Kelsi cifuentes can sleep on one pillow at night without difficulty breathing. There has been complain ing of bad teeth and infected gum that prevents her from eating well. She is in a process t o have all her teeth pulled. MEDICAL, SURGICAL, AND PERSONAL HISTORY Past Medical, Surgical, Family, and Social History are reviewed in EPIC. 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 0 Zujclpb-Ikszxdnsw-Byebtgk D (CALCIUM 500 PO) Take 1 tablet by mouth Daily. cholecalciferol (VITAMIN D-3) 1000 units TABS Take 1,000 Units by mouth Daily. colchicine 0.6 mg tablet 1 tablet by mouth twice daily as needed for gout flare 30 tabl et 0 docusate sodium (COLACE) 250 MG capsule Take 250 mg by mouth 2 times daily. escitalopram (LEXAPRO) 10 mg tablet Take 1 tablet by mouth Daily. 30 tablet 1 folic acid 1 mg tablet Take 1 tablet by mouth Daily. 90 tablet 1 furosemide (LASIX) 20 mg tablet Take 1 tablet by mouth Daily. 7 tablet 0 HYDROcodone-acetaminophen (NORCO) 5-325 mg per tablet Take 1 tablet by mouth every 4 ho urs as needed for Pain. 30 tablet 0 insulin aspart (NOVOLOG FLEXPEN) 100 units/mL injection pen Inject 4-12 Units under the skin 4 [...] needed. methotrexate 2.5 mg tablet Take 5 mg by mouth Once a week. Indications: Rheumatoid Arth ritis 20 tablet 2 metoprolol succinate (TOPROL-XL) 100 mg ER tablet Take 1 tablet by mouth Daily. 90 tabl et 2 multivitamin (THERAGRAN) per tablet Take 1 by mouth daily Nutritional Supplements (ESPEARNZA PO) Take by mouth 2 times daily. polyethylene glycol (MIRALAX) packet Take 1 diluted packet by mouth Daily as needed. 0 sodium phosphate (FLEET) enema Place 133 mLs rectally Daily as needed for Constipation. XARELTO 15 MG tablet Take 15 mg by mouth Daily (with dinner). No current facility-administered medications for this visit. ALLERGIES Allergies Allergen Reactions Codeine Sulfate Nausea And Vomiting Darvon Nausea Only Estrogens Patient can't remember Pneumococcal Vaccines Other (See Comments) Thinks it was a Prevnar, arm became red/sore/swollen ROS Review of Systems Constitutional: Negative for chills, diaphoresis, fever, malaise/fatigue and weight loss. HENT: Negative for congestion, hearing loss, nosebleeds and tinnitus. Dental Problems = No Eyes: Negative for blurred vision and double vision. Respiratory: Negative for shortness of breath. Cardiovascular: Negative for chest pain, palpitations and leg swelling. Gastrointestinal: Negative for blood in stool, constipation, diarrhea, nausea and vomiting. Genitourinary: Negative for dysuria, frequency, hematuria and urgency. Musculoskeletal: Negative for back pain, falls, joint pain, myalgias and neck pain. Gait Problems = No Skin: Negative for itching and rash. Neurological: Negative for dizziness, tingling, tremors, speech change, seizures, loss of c onsciousness and weakness. Lightheaded = No Endo/Heme/Allergies: Bruises/bleeds easily. Psychiatric/Behavioral: Positive for memory loss. The patient is not nervous/anxious and do es not have insomnia. OBJECTIVE: PHYSICAL EXAM BP 110/60 | Pulse 56 | Resp 14 | Ht 1.676 m (5' 6") | Wt 64.6 kg (142 lb 8 oz) | BMI 2 3.00 kg/m Physical Exam Constitutional: She appears well-developed and well-nourished. No distress. Elderly female individual accompanied by , with no acute distress. Neck: Normal carotid pulses, no hepatojugular reflux and no JVD present. Carotid bruit is n ot present. Cardiovascular: Normal rate, regular rhythm, S1 normal, S2 normal, intact distal pulses and normal pulses. PMI is not displaced. Exam reveals no gallop, no S3, no S4 and no friction rub. Murmur heard. Systolic murmur is present with a grade of 2/6 at the upper right sternal border Pulses: Carotid pulses are 2+ on the [...] is no tenderness. Musculoskeletal: She exhibits no edema (Bilateral 2+ trace leg swelling.). Neurological: She is alert. Gait normal. Skin: Skin is warm and dry. Psychiatric: She has a normal mood and affect. Her mood appears not anxious. She does not e xhibit a depressed mood. LAB RESULTS reviewed during visit today primarily from [facility]: LIPID Lab Results Component Value Date CHOL 136 (L) 05/27/2016 TRIG 208 (H) 05/27/2016 HDL 35 05/27/2016 LDL 59 05/27/2016 CHOLHDL 3.9 05/27/2016 CHEMISTRY Lab Results Component Value Date GLU 165 (H) 10/03/2017 NA 134 (L) 10/03/2017 K 4.4 10/03/2017 CL 100 10/03/2017 CO2 25 10/03/2017 CALCIUM 8.7 10/03/2017 ALKPHOS 71 09/03/2016 AST 17 09/03/2016 ALT 13 09/03/2016 BILITOT 0.5 09/03/2016 CREA 0.69 10/03/2017 BUN 15 10/03/2017 EGFR 40 (L) 02/26/2013 HEMATOLOGY Lab Results Component Value Date WBC 11.4 (H) 04/06/2017 HGB 12.0 04/06/2017 HCT 37.5 04/06/2017 PLT 231 04/06/2017 Above data and testing is reviewed this visit; testing below is historical data unless othe rwise specified. ASSESSMENT: 1. Extensive history of coronary artery disease 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: A. Status post [...] IVC with normal resp iratory collapse. E. Today,, patient is feeling good with no cardiac symptom. Patient is physical ly inactive but goes to physical therapy for twenty minutes a day. There is no signs and sym ptoms of overt congestive heart failure. She is in a class I of [place] Heart Association functional class. There is bilateral 2+ trace leg swelling retention on physical examinatio n. 2. Paroxysmal atrial fibrillation: A. Risk of stroke is reviewed today; her risk factors are Hx of HTN (1), Age >/= 75 y.o.(2 ), Diabetes (1) and Female Gender (1), giving her a PER4EL5-JYKd of 5, estimating a 5=6.7% r isk of stroke per year in atrial fibrillation. Risk of bleed on anticoagulant is also revie wed today; her risk factors are HTN (1) and >64 YO (1) , giving her a HAS-BLED score of 2, patient is at 2-3= Intermediate Risk (4.1-5.8%) for risk of bleed. ESC guidelines recommen d anticoagulation for scores of 1 or greater. ACC guidelines recommend anticoagulation for scores of 2 or greater. Patient on xarelto 15 mg. 3. Hyperlipidemia, mixed: A. She is taking atorvastatin 40 Mg. 4. Essential hypertension with goal blood pressure less than 130/80: A. Blood pressure in office today is well controlled. 5. Stage III chronic kidney disease suspecting diabetic nephropathy A. No recent lab work. 6. Diabetes. A. Patient is on aspart and glargine. 7. Dental and gum infection A. Patient is schedule for dental removal of her bottom teeth. PLAN: 1. Stop xarelto 2 days before and restart on the evening of dental removal procedure. 2. I recommend a therapeutic lifestyle change including walking 15 minutes a day if she ca n and choosing healthy choices of diet 3. Follow-up in one year or sooner with concerns. I, Marisabel Mireles, am acting as a scribe on behalf of, and in the presence of Stephenie roman MD. I have reviewed and edited this note. Marisabel Mireles, Manager Of Software Development 02/02/2018 I, Stephenie Paul MD, personally performed the services described in this documentation, as scribed in my presence and it is both accurate and complete. Marisabel Mireles, Manager Of Software Development 13:41 Electronically signed by: Stephenie Paul MD [facility] 02/02/2018 Portions of this chart may have been created with Gear[employer] voice recognition software. Occasi onal wrong-word or sound-alike substitutions may have occurred due to the inherent greene itations of voice recognition software. Please read the chart carefully and recognize, using context, where these substitutions have occurred documented in this encounter Plan of Treatment +--------+---------+ + + + | Date | Type | Specialty | Care Team | Description | +--------+---------+ + + + | 12/06/ | Office | Cardiology | Stephenie Paul, | | | 2019 | Visit | | MD [address] [place] | | | | | | [place], | | | | | | [place] [address] | | | | | | [phone] | | | | | | | | +--------+---------+ + + + documented as of this encounter Visit Diagnoses + + | Diagnosis | + + | 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 | | angina pectoris - Primary | + + documented in this encounter
--- OUTSIDE RECORDS SUMMARY | ~2019-09-12 | XMS | Encounter Summary ---
Demographics + + + | Address | [address] | | | [place] [address] | + + + | Home Phone [...] Author | [facility] | | | and [place] | + + + | Organization | [facility] | | | and [...] | | | | | [place] [address] | | + + + + + | Valentín Saleh | ECON | [id number] | | | | | [place] [address] | | + + + + + | Roberto Carlos Lennon | LEVI | Unknown | | + + + + + Care Team Providers + +------+ + | Care Career Representative Name | Role | Phone | + +------+ + | Francois Pascal MD | PCP | | + +------+ + Reason for Visit +--------+--------+ + | Reason | Onset | Comments | | | Date | | +--------+--------+ + | Fall | 06/17/ | Fall with injury to the head | | | 2015 | | +--------+--------+ + Encounter Details +--------+ + + + + | Date | Type | Department | Care Team | Description | +--------+ + + + + | 06/17/ | Telephone | [facility] | Francois Pascal, | Fall (Fall with | | 2016 | | MEDICINE [address] | [address] | injury to the head) | | | | [address] [place], | [address] [place], | | | | | [place] [address] | [place] [address] | | | | | [phone] | [phone] | | | | | | | [...] this encounter Miscellaneous Notes Telephone Encounter - Mildred Gunn RN - 06/18/2015 3:02 PM PDTPatient & spouse called t o report that patient fell 2 days ago striking her head. states she has a small bum p on her head from the fall. No s/s of complications until today, patient started exhibitin g worsening of gait, and now wants to sleep all day. Spoke with patient and d/t PCP out of the office this afternoon advised ER. Patient and verbalized understanding and will report to ER for evaluation. documented in this encounter Plan of Treatment +--------+---------+ + + + | Date | Type | Specialty | Care Team | Description | +--------+---------+ + + + | 12/06/ | Office | Cardiology | Stephenie Paul, | | | 2019 | Visit | | [address] | | | | | | [place], | | | | | | [place] [id number] | | | | | | [phone] | | | | | | | | +--------+---------+ + + + documented as of this encounter Visit Diagnoses Not on filedocumented in this encounter"
--- OUTSIDE RECORDS SUMMARY | ~2019-09-12 | XMS | Encounter Summary ---
Demographics + + + | Address | [address] | | | [place] [address] | + + + | Home Phone [...] | Author | [facility] | | | and [place] | + + + | Organization | [facility] | | [...] | | | | | [place] [address] | | + + + + + | Valentín Saleh | ECON | [id number] | | | | | [place] [address] | | + + + + + | Roberto Carlos Lennon | LEVI | [place] | | + + + + + Care Team Providers + +------+ + | Care Supervisor Heavy Equipment Name | Role | Phone | + +------+ + PCP | Unavailable | + +------+ + Encounter Details +--------+ + + + + | Date | Type | Department | Care Team | Description | +--------+ + + + + | 02/08/ | Hospital | [facility] | | | | 2006 | Encounter | MED CTR XRAY [address] | | | | | | [place] | | | | | | [place] [address] | | | | | | [phone] | | | +--------+ + + + [...] | | | | | | [place] [address] | | | | | | [phone] | | | | | | | | +--------+---------+ + + + documented as of this encounter Visit Diagnoses Not on filedocumented in this encounter"
--- OUTSIDE RECORDS SUMMARY | ~2019-09-12 | XMS | Encounter Summary ---
Demographics + + + | Address | [address] | | | [place] [address] | + + + | Home Phone [...] | Author | [facility] | | | and [place] | + + + | Organization | [facility] | | | and [...] | | | | | [place] [address] | | + + + + + | Valentín Saleh | ECON | [phone] | | | | | [place] [address] | | + + + + + | Roberto Carlos Lennon | LEVI | Unknown | | + + + + + Care Team Providers + +------+ + | Care Assistant Plant Manager Name | Role | Phone | + +------+ + | Francois Pascal MD | PCP | | + +------+ + Reason for Visit +--------+--------+ + | Reason | Onset | Comments | | | Date | | +--------+--------+ + | Other | 07/13/ | | | | 2016 | | +--------+--------+ + Encounter Details +--------+ + + + + | Date | Type | Department | Care Team | Description | +--------+ + + + + | 07/13/ | Telephone | [facility] | Francois Pascal, | Other | | 2016 | | MEDICINE [address] | [address] | | | | | [address] [place], | [address] [place], | | | | | [place] [address] | [place] [address] | | | | | [phone] | [phone] | | | | | | | [...] Telephone Encounter - Leanne Johnson RN - 07/13/2016 2:07 PM PDTReceived a call from Andrei breen at [facility] just wanting to let Dr Pascal know that patient is to be admitted to [facility] from [facility] today following a left hip IM rodding. documented in this encounter Plan of Treatment +--------+---------+ + + + | Date | Type | Specialty | Care Team | Description | +--------+---------+ + + + | 12/06/ | Office | Cardiology | Stephenie Paul, | | | 2019 | Visit | | MD [address] | | | | | | [place], | | | | | | [place] [address] | | | | | | [phone] | | | | | | | | +--------+---------+ + + + documented as of this encounter Visit Diagnoses Not on filedocumented in this encounter"
--- OUTSIDE RECORDS SUMMARY | ~2019-09-12 | XMS | Encounter Summary ---
Demographics + + + | Address | [address] | | | [place] [address] | + + + | Home Phone [...] + | Author | [facility] | | | and [place] | + + + | Organization | [facility] | | [...] | | | | | [place] [address] | | + + + + + | Valentín Saleh | ECON | [address] | | | | | [place] [address] | | + + + + + | Roberto Carlos Lennon | LEVI | [place] | | + + + + + Care Team Providers + +------+ + | Care Cable Ferryboat Operator Name | Role | Phone | + +------+ + PCP | Unavailable | + +------+ + Encounter Details +--------+ + + + + | Date | Type | Department | Care Team | Description | +--------+ + + + + | 06/27/ | Hospital | [facility] | | | | 1996 - | Encounter | MED CTR GENERIC IP | | | | | | CONV DEPT [address] | | | | 07/01/ | | [place], | | | | 1995 | | [place] [address] | | | | | | [phone] | | | +--------+ + + + [...] | | | | | | [place] [address] | | | | | | [phone] | | | | | | | | +--------+---------+ + + + documented as of this encounter Visit Diagnoses Not on filedocumented in this encounter"
--- OUTSIDE RECORDS SUMMARY | ~2019-09-12 | XMS | Encounter Summary ---
Demographics + + + | Address | [address] | | | [place] [address] | + + + | Home Phone [...] + | Author | [facility] | | | and [place] | + + + | Organization | [facility] | | [...] | | | | | [place] [address] | | + + + + + | Valentín Saleh | ECON | [address] | | | | | [place] [address] | | + + + + + | Roberto Carlos Lennon | LEVI | Unknown | | + + + + + Care Team Providers + +------+ + | Care Assault Amphibious Vehicle Officer Name | Role | Phone | [...] + | 06/09/ | Telephone | [facility] | Francois Pascal, | Paperwork | | 2018 | | MEDICINE [place] | [address] | | | | | [address] | [address] [place], | | | | | [place] | [place] [address] | | | | | [address] | [phone] | | | | | [phone] | | | +--------+ + + + [...] | | | | | | [place] [address] | | | | | | [phone] | | | | | | | | +--------+---------+ + + + documented as of this encounter Visit Diagnoses Not on filedocumented in this encounter"
--- OUTSIDE RECORDS SUMMARY | ~2019-09-12 | XMS | Encounter Summary ---
Demographics + + + | Address | [address] | | | [place] [address] | + + + | Home Phone [...] Author | [facility] | | | and [place] | + + + | Organization | [facility] | | | [...] | | | | | [place] [address] | | + + + + + | Valentín Saleh | ECON | [address] | | | | | [place] [address] | | + + + + + | Roberto Carlos Lennon | LEVI | Unknown | | + + + + + Care Team Providers + +------+ + | Care Director Personal Name | Role | Phone | + +------+ + | Francois Pascal MD | PCP | | + +------+ + Reason for Visit + + + | Reason | Comments | + + + | Pre-op Exam | Left ankle surgery | + + + | Coronary Artery | | | Disease | | + + + | Hypertension | | + + + Follow Up (Routine) +--------+--------+ + + + + | Status | Reason | Specialty | Diagnoses / | Referred By | Referred To | | | | | Procedures | Contact | Contact | +--------+--------+ + + + + | Closed | | Cardiology | Diagnoses | Don, | [place], | | | | | CARDIAC | Trevor Wilson, | MD Jennifer | | | | | RISK | [address] [place] [address] | | | | | ASSESSMENT | [place] | [address] | | | | | Procedures | Ave | [place], | | | | | FUP | Ra, | [place] [address] | | | | | | [place] | Phone: | | | | | | [address] | [phone] | | | | | | Phone: | Fax: | | | | | | [phone] | [phone] | | | | | | Fax: | | | | | | | [phone] | | +--------+--------+ + + + + Encounter Details +--------+---------+ + + + | Date | Type | Department | Care Team | Description | +--------+---------+ + + + | 01/11/ | Office | [facility] | Jennifer Paul, | Preoperative | | 2016 | Visit | CARDIOLOGY [address] | [address] | clearance (Primary | | | | [address] [place], | [place], | Dx); Coronary artery | | | | [place] [address] | [place] [address] | disease involving | | | | [phone] | [phone] | lytton coronary | | | | | | artery of lytton | | | | | | heart without angina | | | | | | pectoris; Essential | | | | | | hypertension with | | | | | | goal blood pressure | | | | | | less than 130/80; | | | | | | Mixed hyperlipidemia | +--------+---------+ + + + Social History [...] + + + | Blood Pressure | 112/64 | 01/12/2016 8:20 AM | right arm | | | | PST | | + + + + + | Pulse | 60 | 01/12/2016 8:20 AM | regular | | | | PST | | + + + + + | Temperature | - | - | | + + + + + | Respiratory Rate | 16 | 01/12/2016 8:20 AM | | | | | PST | | + + + + + | Oxygen Saturation | - | - | | + + + + + | Inhaled Oxygen | - | - | | | Concentration | | | | + + + + + | Weight | 71.4 kg (157 lb 4.8 | 01/12/2016 8:20 AM | | | | oz) | PST | | + + + + + | Height | 157.5 cm (5' 2") | 01/12/2016 8:20 AM | | | | | PST | | + + + + + | Body Mass Index | 28.77 | 01/12/2016 8:20 AM | | | | | PST | | + + + + + documented in this encounter Patient Instructions Patient Instructions Jessica Saucedo RN - 01/12/2016 8:54 AM PST1. Change Aspirin to 81m g every day 2. Stop Simvastatin 3. Start Atorvastatin (Lipitor) 20mg - take one tablet by mouth one time daily in the [facility]. 4. Blood test: Fasting- 12 hours prior to test, no food, no caffiene, water is ok Date Due: 2 months Where to go for labs: [facility]- [address] [facility]. 5. Follow up appointment: 3-4 months Provider: Jennifer Paul MD Date: Check-In Time: documented in this encounter Progress Notes Jennifer Paul MD - 01/12/2016 8:30 AM PSTFormatting of this note might be different f rom the original. PATIENT NAME: Alyson Lennno : 1930: AGE: 85 y.o. PRIMARY CARE: Francois Pascal MD OUTPATIENT FOLLOW UP VISIT Date of Service: 01/12/2016 HISTORY OF PRESENT ILLNESS: Alyson Lennon is a 85 y.o. female with a history of CAD, history of hypertension, hyperli pidemia, and type 2 diabetes, stage III chronic kidney disease. She is being seen today for cardiac clearance of left ankle prosthesis. She was last seen 03/21/2015 at which time, she was recommend a therapeutic lifestyle change including walking 15 minutes a day. Since that time, she has been doing well from cardiac standpoint but is experiencing persisting left ankle pain. She is now seeing a surgeon in [place] who planned to perform left ankle prosthesis. She has no cardiac complains. Patient doesn't exercise because she can't walk due to her ankle injury 7 years ago. There is no stacy st pain or chest discomfort both at rest and on exertion. Patient denies breathlessness. The re is no palpitations, dizziness or lightheadedness. There is some leg swelling. Patient can sleep on one pillow at night without difficulty breathing. MEDICAL, SURGICAL, AND PERSONAL HISTORY Past Medical, Surgical, Family, and Social History are reviewed in EPIC. CURRENT PROBLEMS Patient Active Problem List Diagnosis CAROTID STENOSIS AMAUROSIS FUGAX DEMYELINATING DISEASE, CENTRAL NERVOUS SYSTEM FRACTURE, ANKLE, LEFT Gout, unspecified OSTEOARTHRITIS, ANKLE, LEFT FATIGUE RENAL INSUFFICIENCY Essential hypertension with goal blood pressure less than 130/80 VIRAL URI HYPERTRIGLYCERIDEMIA VITAMIN D DEFICIENCY Hypertension, renal disease DM type 2, uncontrolled, with renal complications Glossitis Coronary artery disease involving lytton coronary artery of lytton heart without angina pectoris Hyperlipidemia AMI - ANTEROSEPTAL 1994 CONGESTIVE HEART FAILURE VSD - 1994 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 THROMBOPHLEBITIS CHRONIC KIDNEY DISEASE STAGE III (MODERATE) ARTHRITIS, CHRONIC DM (diabetes mellitus) 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 colchicine 0.6 mg tablet 1-2 tablets by mouth as needed folic acid 1 mg tablet TAKE ONE TABLET BY MOUTH EVERY DAY 90 tablet 1 furosemide (LASIX) 40 mg tablet TAKE ONE TABLET BY MOUTH EVERY DAY 90 tablet 3 HYDROcodone-acetaminophen (NORCO) 5-325 mg per tablet Take 1 tablet by mouth as needed. insulin aspart (NOVOLOG) 100 units/mL injection 35 units SQ TID prior to meals 20 mL 3 insulin glargine (LANTUS) 100 units/mL injection (vial) 110 u sq qhs 50 mL 6 JANUVIA 100 MG tablet TAKE ONE TABLET BY MOUTH EVERY DAY 90 tablet 1 lisinopril (PRINIVIL, ZESTRIL) 20 mg tablet TAKE [...] BY MOUTH EVERY DAY 45 tablet 3 sulfamethoxazole-trimethoprim (BACTRIM,SEPTRA) 400-80 MG per tablet Take 1 tablet by mo [facility] 2 times daily. No current facility-administered medications for this visit. ALLERGIES Allergies Allergen Reactions Codeine Sulfate Nausea And Vomiting Darvon Nausea Only Estrogens Patient can't remember Pneumococcal Vaccines Other (See Comments) Thinks it was a Prevnar, arm became red/sore/swollen ROS Review of Systems Constitutional: Negative for fever, chills, weight loss, malaise/fatigue and diaphoresis. HENT: Negative for congestion, hearing loss, nosebleeds and tinnitus. Dental Problems = No Eyes: Negative for blurred vision and double vision. Respiratory: Negative for shortness of breath. Cardiovascular: Negative for chest pain, palpitations and leg swelling. Gastrointestinal: Negative for nausea, vomiting, diarrhea, constipation and blood in stool. Genitourinary: Negative for dysuria, urgency, frequency and hematuria. Musculoskeletal: Negative for myalgias, back pain, joint pain, falls and neck pain. Gait Problems = No Skin: Positive for itching (eyes). Negative for rash. Neurological: Negative for dizziness, tingling, tremors, speech change, seizures, loss of c onsciousness and weakness. Lightheaded = No Endo/Heme/Allergies: Bruises/bleeds easily. Psychiatric/Behavioral: Negative for memory loss. The patient is not nervous/anxious and do es not have insomnia. OBJECTIVE: PHYSICAL EXAM BP 112/64 mmHg | Pulse 60 | Resp 16 | Ht 1.575 m (5' 2") | Wt 71.351 kg (157 lb 4.8 oz) | B MA 28.76 kg/m2 Physical Exam Constitutional: She is oriented [...] not e xhibit a depressed mood. ECG: Sinus bradycardia, complete right bundle branch block, occasional premature ventricul ar contraction, nonspecific ST-T abnormalities. LAB RESULTS reviewed during visit today primarily from [facility]: LIPID Lab Results Component Value Date CHOL 139* 09/10/2014 TRIG 263* 09/10/2014 HDL 51 09/10/2014 LDL 35 09/10/2014 CHOLHDL 2.7 09/10/2014 CHEMISTRY Lab Results Component Value Date GLU 111* 10/16/2015 NA 142 10/16/2015 K 4.0 10/16/2015 CL 103 10/16/2015 CO2 30 10/16/2015 CALCIUM 9.8 10/16/2015 ALKPHOS 61 10/16/2015 AST 25 10/16/2015 ALT 20 10/16/2015 BILITOT 0.7 10/16/2015 CREA 1.30 10/16/2015 BUN 17 10/16/2015 EGFR 40* 02/26/2013 HEMATOLOGY Lab Results Component Value Date WBC 12.2* 10/16/2015 HGB 15.2 10/16/2015 HCT 44.9 10/16/2015 PLT 199 10/16/2015 I reviewed records from Francois Pascal MD for office visit on 11/17/2015. Above data and testing is reviewed this visit; testing below is historical data unless othe rwise specified. ASSESSMENT: 1. Extensive history of coronary artery disease: Preop cardiac clearance A. Status post an anterior wall myocardial infarction complicated by VSD, status post VSD repair in 1994. B. History of an inferior wall myocardial infarction status post CABG x3 in 1996. C. An exercise myoview stress test in 2003 revealed a medium-size d scar of the anteroseptal region. LVEF by gated SPECT was 56%. D. Today , patient is doing well from cardiac standpoint. Patient is asymptomatic but not physically active due to the left ankle injury/pain. Her physical activity has been slowing down because of the bad weather and the close down of the Gym in her area. There is no signs and symptoms of overt congestive heart failure. Sohan hubbard is in a class I of [place] [employer] functional class. Physical exam shows t race trace edema to her left foot and ankle from her old fractured ankle. She is on a combination of baby aspirin, lisinopril, metoprolol, simvastatin and amlodipin e. She is undergoing an elective, non-emergent surgery [...] be discussed between patient and surgeon. 2. Hyperlipidemia: A. She is on Simvastatin. 3. Hypertension: A. Today blood pressure is well controlled. 4. Stage III chronic kidney disease suspecting diabetic nephropathy A. This has been stable. 5. Diabetes. A. on insulin. 6. Obesity 7. Inactivity PLAN: 1. Discontinue aspirin 325 mg that she takes on Sundays. She will take the same dose of ba by aspirin 81 mg once a day. 2. Switch simvastatin to atorvastatin 20 mg once a day. Isn't has history of CAD. Guideli uganako recommend high intensity statin. 3. I recommend a therapeutic lifestyle change including walking 30 minutes a day once left ankle pain is resolved, choosing healthy choices of diet , including DASH diet and weight re duction. 4. Follow-up in 3-4 months to up-titrate atorvastatin to 40 mg once a day. I Judith Interiano am acting as a scribe on behalf of, and in the presence of Jennifer roman MD. I have reviewed and edited this note. Judith Interiano [facility] 01/12/16 I, Jennifer Paul MD, personally performed the services described in this documentation, as scribed in my presence and it is both accurate and complete. Judith Marie Jaydon, Veterans Employment Representative 01/12/2016 8:35 Electronically signed by: Jennifer Paul MD [facility] 01/12/2016 Portions of this chart may have been created with [employer] voice recognition software. Occasi onal wrong-word or sound-alike substitutions may have occurred due to the inherent greene itations of voice recognition software. Please read the chart carefully and recognize, using context, where these substitutions have occurred. documented in this encounter Plan of Treatment +--------+---------+ + + + | Date | Type | Specialty | Care Team | Description | +--------+---------+ + + + | 12/06/ | Office | Cardiology | Jennifer Paul, | | | 2019 | Visit | | MD [address] | | | | | | [place], | | | | | | [place] [address] | | | | | | [phone] | | | | | | | | +--------+---------+ + + + documented as of this encounter Procedures + +--------+ + + + | Procedure Name | Priori | Date/Time | Associated Diagnosis | Comments | | | ty | | | | + +--------+ + + + | ECG 12 LEAD | Routin | 01/12/2016 | Coronary artery | Results for this | | | e | 9:27 AM | disease involving | procedure are in the | | | | PST | lytton coronary | results section. | | | | | artery of lytton | | | | | | heart without angina | | | | | | pectoris Essential | | | | | | hypertension with | | | | | | goal blood pressure | | | | | | less than 130/80 | | + +--------+ + + + documented in this encounter Results ECG 12 lead (01/12/2016 9:27 AM PST) + + + + + + | Component | Value | Ref Range | Performed | Pathologist | | | | | At | Signature | + + + + + + | VENTRICULAR | 59 | BPM | [facility] | | | RATE EKG | | | | | + + + + + + | ATRIAL RATE | 59 | BPM | [facility] | | + + + + + + | P-R | 168 | ms | [facility] | | | INTERVAL | | | | | + + + + + + | QRS | 130 | ms | [facility] | | | DURATION | | | | | + + + + + + | Q-T | 458 | ms | [facility] | | | INTERVAL | | | | | + + + + + + | Q-T | 453 | ms | [facility] | | | INTERVAL | | | | | | (CORRECTED) | | | | | + + + + + + | QRS AXIS | -37 | degrees | [facility] | | + + + + + + | T AXIS | -158 | degrees | [facility] | | + + + + + + | INTERPRETAT | Sinus bradycardia with | | [facility] | | | ION TEXT | premature | | | | | | supraventricular | | | | | | complexesLeft axis | | | | | | deviationRight bundle | | | | | | branch | | | | | | blockAnterolateral | | | | | | infarct (cited on or | | | | | | before | | | | | | 21-MAR-2015)Abnormal | | | | | | ECGWhen compared with | | | | | | ECG of 21-MAR-2015 | | | | | | 13:21,premature | | | | | | supraventricular | | | | | | complexes are now | | | | | | presentPR interval has | | | | | | decreasedNonspecific T | | | | | | wave abnormality now | | | | | | evident in Inferior | | | | | | leadsConfirmed by | | | | | | JENNIFER PAUL MD | | | | | | ([id number]) on 01/12/2016 | | | | | | 4:06:36 PM | | | | + + [...] + | Diagnosis | + + | Preoperative clearance - Primary Preoperative examination, unspecified | + + | Coronary artery disease involving lytton coronary artery of lytton heart without | | angina pectoris | + + | Essential hypertension with goal blood pressure less than 130/80 | + + | Mixed hyperlipidemia | + + documented in this encounter
--- OUTSIDE RECORDS SUMMARY | ~2019-09-12 | XMS | Encounter Summary ---
Demographics + + + | Address | [address] | | | [place] [address] | + + + | Home Phone [...] + | Author | [facility] | | | and [place]ana | + + + | Organization | [facility] | [...] | | | | | [place] [address] | | + + + + + | Valentín Saleh | ECON | [address] | | | | | [place] [address] | | + + + + + | Roberto Carlos Lennon | LEVI | Unknown | | + + + + + Care Team Providers + +------+ + | Care Lead Instructor/Flight Attendant Name | Role | Phone | [...] Description | +--------+--------+ + + + | 02/20/ | Refill | [facility] [place] | Stephenie Paul, | Medication Refill | | 2013 | | CARDIOLOGY [address] | MD [address] | | | | | [place], | [place], | | | | | [place] [address] | [place] [address] | | | | | [phone] | [phone] | | | | | | | [...] | | | | | | [place] [address] | | | | | | [phone] | | | | | | | | +--------+---------+ + + + documented as of this encounter Visit Diagnoses Not on filedocumented in this encounter"
--- OUTSIDE RECORDS SUMMARY | ~2019-09-12 | XMS | Encounter Summary ---
Demographics + + + | Address | [address] | | | [place] [address] | + + + | Home Phone [...] | Author | [facility] | | | and [place]ana | + + + | Organization | [facility] | [...] | | | | | [place] [address] | | + + + + + | Valentín Saleh | ECON | [phone] | | | | | [place] [address] | | + + + + + | Roberto Carlos Lennon | LEVI | Unknown | | + + + + + Care Team Providers + +------+ + | Care Shot Dropper Name | Role | Phone | + +------+ + | Francois Pascal MD | PCP | | + +------+ + Reason for Visit + +--------+ + | Reason | Onset | Comments | | | Date | | + +--------+ + | Medication Refill | 05/10/ | | | | 2012 | | + +--------+ + Encounter Details +--------+--------+ + + + | Date | Type | Department | Care Team | Description | +--------+--------+ + + + | 05/10/ | Refill | [facility] [place] [facility] | Francois Pascal, | Medication Refill | | 2012 | | MEDICINE [address] | [address] | | | | | [place], | [address] [place], | | | | | [place] [address] | [place] [address] | | | | | [phone] | [phone] | | | | | | | [...] | | | | | | [place] [address] | | | | | | [phone] | | | | | | | | +--------+---------+ + + + documented as of this encounter Visit Diagnoses Not on filedocumented in this encounter"
--- OUTSIDE RECORDS SUMMARY | ~2019-09-12 | XMS | Encounter Summary ---
Demographics + + + | Address | [address] | | | [place] [address] | + + + | Home Phone [...] | Author | [facility] | | | and [place] | + + + | Organization | [facility] | | | and [place] | + + + | Address | Unknown | + + + | Phone | Unavailable | + + + Support + + + + + | Name | Relationship | Address | Phone | + + + + + | Sigrid Lennon | ECON | [address] | | | | | [place] [address] | | + + + + + | Valentín Saleh | ECON | [address] | | | | | [place] [address] | | + + + + + | Roberto Carlos Lennon | LEVI | Unknown | | + + + + + Care Team Providers + +------+ + | Care Aircraft Load Controller Name | Role | Phone | + +------+ + | Francois Pascal MD | PCP | | + +------+ + Encounter Details +--------+ + + + + | Date | Type | Department | Care Team | Description | +--------+ + + + + | 01/09/ | Hospital | [facility] | Francois Pascal, | Essential | | 2015 | Encounter | [facility] | [address] | hypertension; DM | | | | [address] | [address] [place], | (diabetes mellitus); | | | | [place], [place] | [place] [address] | CHRONIC KIDNEY | | | | [address] | [phone] | DISEASE STAGE III | | | | [phone] | | (MODERATE); CKD | | | | | | (chronic kidney | | | | | | disease) stage 4, | | | | | | GFR 15-29 ml/min | | | | | | (HCC); Type 2 | | | | | | diabetes mellitus | | | | | | with other diabetic | | | | | | kidney complication | | | | | | (HCC) | +--------+ + + [...] + + | insulin aspart | Inject 30 Units | 20 mL | 3 | 12/17/19 | | | (NOVOLOG) 100 | under the skin 3 | | | 15 | 6 | | units/mL injection | times daily (before | | | | | | | meals). | | | | | + + + +---------+ + + | insulin aspart | Inject 30 Units | | 0 | | | | (NOVOLOG) 100 | under the skin 3 | | | | 6 | | units/mL injection | times daily (before | | | [...] | | | | mellitus) ([facility]) | | | | | | + [...] Progress Notes Francois Pascal MD - 01/09/2015 11:49 AM PST Quick Note: Ok for ma or nurse [...] | | | | | | [place] [address] | | | | | | [phone] | | | | | | | | +--------+---------+ + + + documented as of this encounter Procedures + +--------+ + + + | Procedure Name | Priori | Date/Time | Associated Diagnosis | Comments | | | ty | | | | + +--------+ + + + | CBC WITH | Routin | 01/09/2015 | Essential | Results for this | | DIFFERENTIAL | e | 9:27 AM | hypertension | procedure are in the | | | | PST | | results section. | + +--------+ + + + | HEMOGLOBIN A1C | Routin | 01/09/2015 | DM (diabetes | Results for this | | | e | 9:27 AM | mellitus) | procedure are in the | | | | PST | | results section. | + +--------+ + + + | COMPREHENSIVE | Routin | 01/09/2015 | Essential | Results for this | | METABOLIC PANEL | e | 9:27 AM | hypertension | procedure are in the | | | | PST | | results section. | + +--------+ + + + documented in this encounter Results Hemoglobin A1C (01/09/2015 9:27 AM PST) + +---------+ + + + | Component | Value | Ref Range | Performed | Pathologist | | | | | At | Signature | + +---------+ + + + | Hemoglobin | 7.7 (H) | 4.3 - 6.0 % | [facility] | | | A1c | | | [facility] | | | | | | [facility] | | | | | | [facility] - | | | | | | LABORATORY | | + +---------+ + + + | Estimated | 174 | mg/dL | [facility] | | | Average | | | [...] [address] | [place] | [phone] | | [facility] | | [address] | | | - LABORATORY | | | | + + + + + Comprehensive Metabolic Panel (01/09/2015 9:27 AM PST) + + + + [...] + + + + | Glucose | 129 (H) | 70 - 109 mg/dL | [...] 1.37 (H) | 0.60 - 1.30 | [facility] [...] mL/min/1.73m2 | [facility] | | | [facility] | RATE,ESTIMATED | | MEDICAL | | | | mL/min/1.69x7Dwcr than | | CENTER - | | [...] Alkaline | 45 | 40 - 110 U/L | [facility] [...] + + + + | BUN/Creatin | 21.2 | | [facility] | | | ine [...] + | [facility] | [address] | [place] | [phone] | | [facility] | | [address] | | | - LABORATORY | | | | + + + + + CBC with Differential (01/09/2015 9:27 AM PST) + + + + [...] + + + + | Hematocrit | 40.7 | 34.0 - 47.0 % | [facility] | | | | | [facility] | | | | | | [facility] | | | | | | [facility] - | | | | | | LABORATORY | | + + + + + + | MCV | 102.9 (H) | 83.0 - 101.0 fL | [facility] | | | | | | [facility] | | | | | | [facility] | | | | | | C[facility] - | | | | | | LABORATORY | | + + + + + + | MCH | 33.9 | 28.0 - 35.0 pg | [facility] [...] + + + + | Platelet | 182 | 140 - 440 K/uL | [facility] [...] + + + + | % | 44.9 (L) | 45.0 - 82.0 % | [facility] | | | Neutrophils | | | [facility] | | | | | | [facility] | | | | | | CENTER - | | | | | | LABORATORY | | + + + + + + | % | 43.2 | 20.0 - 45.0 % | [facility] | | | Lymphocytes | | | [facility] | | | | | | [facility] | | | | | | CENTER - | | | | | | LABORATORY | | + + + + + + | % Monocytes | 7.1 | 4.0 - 12.0 % | [facility] | | | | | | [facility] | | | | | | [facility] | | | | | | CENTER - | | | | | | LABORATORY | | + + + + + + | % | 4.0 | 0.0 - 5.0 % | [facility] | | | Eosinophils | | | [facility] | | [...] + + + + | Absolute | 4.00 | 1.80 - 8.50 | [facility] | | | Neutrophils | | K/uL | [facility] | | | | | | [facility] | | | | | | CENTER - | | | | | | LABORATORY | | + + + + + + | Absolute | 3.80 (H) | 0.60 - 3.20 | [facility] | | | Lymphocytes | | K/uL | [facility] | | | | | | [facility] | | | | | | CENTER - | | | | | | LABORATORY | | + + + + + + | Absolute | 0.60 | 0.00 - 1.00 | [facility] | | | Monocytes | | K/uL | [facility] | | | | | | [facility] | | | | | | CENTER - | | | | | | LABORATORY | | + + + + + + | Absolute | 0.40 | 0.00 - 0.40 | [facility] | [...] ST. | [address] | [place], [place] | [phone] | | [facility] | | [address] | | | - LABORATORY | | | | + + + + + documented in this encounter Visit Diagnoses + + | Diagnosis | + + | Essential hypertension Unspecified essential hypertension | + + | DM (diabetes mellitus) Type II or unspecified type diabetes mellitus without mention | | of complication, not stated as uncontrolled | + + | CHRONIC KIDNEY DISEASE STAGE III (MODERATE) Chronic kidney disease, Stage III | | (moderate) | + + | CKD (chronic kidney disease) stage 4, GFR 15-29 ml/min (HCC) Chronic kidney disease, | | Stage IV (severe) | + + | Type 2 diabetes mellitus with other diabetic kidney complication (HCC) | + + documented in this encounter"
--- OUTSIDE RECORDS SUMMARY | ~2019-09-12 | XMS | Encounter Summary ---
Demographics + + + | Address | [address] | | | [place] [address] | + + + | Home Phone [...] | [facility] | | | and [place] | + + + | Organization | [facility] | | | and [place] | + + + | Address | Unknown | + + + | Phone | Unavailable | + + + Support + + + + + | Name | Relationship | Address | Phone | + + + + + | Sigrid Lennon | ECON | [address] | | | | | [place] [address] | | + + + + + | Valentín Saleh | ECON | [address] | | | | | [place] [address] | | + + + + + | Roberto Carlos Lennon | LEVI | Unknown | | + + + + + Care Team Providers + +------+ + | Care Potato Peeler Name | Role | Phone | + +------+ + | Francois Pascal MD | PCP | | + +------+ + Reason for Visit + +--------+ + | Reason | Onset | Comments | | | Date | | + +--------+ + | Appointment | 11/27/ | | | | 2014 | | + +--------+ + Encounter Details +--------+ + + + + | Date | Type | Department | Care Team | Description | +--------+ + + + + | 11/27/ | Telephone | [facility] | Francois Pascal, | Appointment | | 2014 | | MEDICINE [address] [place] [address] | [address] | | | | | [place], | [address] [place], | | | | | [place] [address] | [place] [address] | | | | | [phone] | [phone] | | | | | | | [...] Telephone Encounter - Airam Menjivar RN - 11/27/2014 4:29 PM PDTPatient returned call and was given time, date and instructions for MRI on Dec 05. elephone Amarilys Oneal CMA - 11/27/2014 3:24 PM PDTLM for patient on both numbers listed. Made an appt for her MRI on 12/05/14 at 0900. She will need to check in at 0830 Electronical ly signed by Amarilys Mack CMA at 11/27/2014 3:25 PM PDTdocumented in this encounter Plan of [...] | | | | | | [place] [address] | | | | | | [phone] | | | | | | | | +--------+---------+ + + + documented as of this encounter Visit Diagnoses Not on filedocumented in this encounter"
--- OUTSIDE RECORDS SUMMARY | ~2019-09-12 | XMS | Encounter Summary ---
Demographics + + + | Address | [address] | | | [place] [address] | + + + | Home Phone [...] + + | Author | [facility] | | | and [place] | + + + | Organization | [facility] | [...] | | | | | [place] [address] | | + + + + + | Valentín Saleh | ECON | [address] | | | | | [place] [address] | | + + + + + | Roberto Carlos Lennon | LEVI | Unknown | | + + + + + Care Team Providers + +------+ + | Care Roller Printer Name | Role | Phone | + +------+ + | Francois Pascal MD | PCP | | + +------+ + Encounter Details +--------+ + + + + | Date | Type | Department | Care Team | Description | +--------+ + + + + | 03/01/ | Hospital | [facility] | Francois Pascal, | DM (diabetes | | 2013 | Encounter | MED CTR LABORATORY | [address] | mellitus) ([facility]) | | | | [address] | [address] [place], | | | | | [place] | [place] [address] | | | | | [address] | [phone] | | | | | [phone] | | | +--------+ + + + [...] encounter Progress Notes Francois Pascal MD - 03/02/2013 12:03 PM PST Quick Note: Ok for ma [...] | | | | | | [place] [address] | | | | | | [phone] | | | | | | | | +--------+---------+ + + + documented as of this encounter Procedures + +--------+ + + + | Procedure Name | Priori | Date/Time | Associated Diagnosis | Comments | | | ty | | | | + +--------+ + + + | HEMOGLOBIN A1C | Routin | 03/01/2013 | | Results for this | | | e | 10:56 AM | | procedure are in the | | | | PST | | results section. | + +--------+ + + + | HEMOGLOBIN A1C | Routin | 03/01/2013 | DM (diabetes | Results for this | | | e | 10:54 AM | mellitus) (HCC) | procedure are in the | | | | PST | | results section. | + +--------+ + + + documented in this encounter Results Hemoglobin A1C (03/01/2013 10:56 AM PST) + + + + + [...] + | [facility] | [address] | [place], [place] | [phone] | | [facility] | | [address] | | | - LABORATORY | | | | + + + + + | [facility] | [address] | [place], [place] | | | [facility] | | [address] [place] [address] | | | - LABORATORY | | [...] A1c | DIABETIC PATIENT RANGES: | | GATO | | | | 6.2-7.0% = [...] + | [facility] | [address] | [place], [place] | [phone] | | [facility] | | [address] | | | - LABORATORY | | | | + + + + + | [facility] | [address] | [place], [place] | | | [facility] | | [address] [place] [address] | | | - LABORATORY | | | | + + + + + documented in this encounter Visit Diagnoses + + | Diagnosis | + + | DM (diabetes mellitus) (HCC) Type II or unspecified type diabetes mellitus without | | mention of complication, not stated as uncontrolled | + + documented in this encounter"
--- OUTSIDE RECORDS SUMMARY | ~2019-09-12 | XMS | Encounter Summary ---
Demographics + + + | Address | [address] | | | [place] [address] | + + + | Home Phone [...] Author | [facility] | | | and [place] | + + + | Organization | [facility] | | | and [...] | | | | | [place] [address] | | + + + + + | Valentín Saleh | ECON | [address] | | | | | [place] [address] | | + + + + + | Roberto Carlos Lennon | LEVI | Unknown | | + + + + + Care Team Providers + +------+ + | Care Research Test Engine Operator Name | Role | Phone | + +------+ + | Francois Pascal MD | PCP | | + +------+ + Encounter Details +--------+ + + + + | Date | Type | Department | Care Team | Description | +--------+ + + + + | 03/21/ | Hospital | [facility] | Francois Pascal, | HYPERTENSION NEC; | | 2015 | Encounter | MED CTR LABORATORY | [address] | Hyperlipidemia; DM | | | | [address] | [address] [place], | (diabetes mellitus) | | | | [place] | [place] [address] | | | | | [address] | [phone] | | | | | [phone] | | | +--------+ + + + [...] | | | | | | [place] [address] | | | | | | [phone] | | | | | | | [...] - 1.030 | [facility] | | | [place], | | | [facility] | | [...] + | [facility] | [address] | [place] | [phone] | | [facility] | | [address] | | | - LABORATORY | | | | + + + + + | [facility] | [address] | [place], [place] | | | [facility] | | [address] | | | - LABORATORY [...] 11.0 K/uL | [facility] | | | Cells | | | [...] + | [facility] | [address] | [place], [place] | [phone] | | [facility] | | [address] | | | - LABORATORY | | | | + + + + + | [facility] | [address] | [place], [place] | | | [facility] | | [id number] [place] [address] | | | - LABORATORY | | [...] + | [facility] | [address] | [place] | [phone] | | [facility] | | [address] | | | - LABORATORY | | | | + + + + + | [facility] | [address] | [place], [place] | | | [facility] | | [id number] [place] [address] | | | - LABORATORY | | [...] | | | Ratio | | | [facility] | [...] [address] | [place] | [phone] | | [facility] | | [address] | | | - LABORATORY | | | | + + + + + | [facility] | [address] | [place], [place] | | | [facility] | | [address], [facility] | | | [...] not | 45 (L)Comment: | >=60 | [facility] | | | | GLOMERULAR FILTRATION | mL/min/1.73m2 | [facility] | | | IVORIAN | RATE,ESTIMATED | | MEDICAL | | | | mL/min/1.80z3Bdea than | | CENTER - | | [...] | 9.9 | 8.3 - 10.5 | [facility] | | | | | mg/dL | [...] [address] | [place] | [phone] | | [facility] | | [address] | | | - LABORATORY | | | | + + + + + | [facility] | [address] | [place], [place] | | | [facility] | | [address], [facility] | | | [...]
--- OUTSIDE RECORDS SUMMARY | ~2019-09-12 | XMS | Encounter Summary ---
Demographics + + + | Address | [address] | | | [place] [address] | + + + | Home Phone [...] | Author | [facility] | | | and [place] | + + + | Organization | [facility] | | [...] | | | | | [place] [address] | | + + + + + | Valentín Saleh | ECON | [address] | | | | | [place] [address] | | + + + + + | Roberto Carlos Lennon | LEVI | [place] | | + + + + + Care Team Providers + +------+ + | Care Bank Advisor Name | Role | Phone | + +------+ + PCP | Unavailable | + +------+ + Encounter Details +--------+ + + + + | Date | Type | Department | Care Team | Description | +--------+ + + + + | 08/01/ | Hospital | [facility] | | | | 2007 | Encounter | MED CTR LABORATORY | | | | | | [address] | | | | | | [place] | | | | | | [address] | | | | | | [phone] | | | +--------+ + + + [...] | | | | | | [place] [address] | | | | | | [phone] | | | | | | | | +--------+---------+ + + + documented as of this encounter Visit Diagnoses Not on filedocumented in this encounter"
--- OUTSIDE RECORDS SUMMARY | ~2019-09-12 | XMS | Encounter Summary ---
Demographics + + + | Address | [address] | | | [place] [address] | + + + | Home Phone [...] | Author | [facility] | | | and [place] | + + + | Organization | [facility] | [...] | | | | | [place] [address] | | + + + + + | Valentín Saleh | ECON | [address] | | | | | [place] [address] | | + + + + + | Roberto Carlos Lennon | LEVI | Unknown | | + + + + + Care Team Providers + +------+ + | Care Plumber Maintenance Name | Role | Phone | [...] + + | 06/03/ | Office | [facility] | Leah, | Hypertension, renal | | 2016 | Visit | CARDIOLOGY [address] | LAURO Dunham [address] | disease, stage 1-4 | | | | [place], | [place], | or unspecified | | | | [place] [address] | [place] [address] | chronic kidney | | | | [phone] | [phone] | disease (Primary | | | | | | Dx); Coronary artery | | | | | | disease involving | | | | | | salamatof coronary | | | | | | artery of salamatof | | | | | | heart [...] renal complications Glossitis Coronary artery disease involving salamatof coronary artery of salamatof heart without angina pectoris Hyperlipidemia, mixed AMI [...] tablet by mouth nightly. 90 tablet 3 Dwkmtjc-Rgucklxro-Gooaisb D (CALCIUM 500 PO) Take 1 capsule [...] RESULTS reviewed during visit today primarily from [facility]: LIPID Lab Results Component Value [...] Extensive history of coronary artery disease involving salamatof coronary artery of salamatof heart without angina pectoris: A. Status post [...] Patient is in a class I of [place] [employer] functional class. Physical exam shows [...] | Visit | | MD Bob Vasquez [place] | | | | | | [place], | | | | | | [place] [address] | | | | | | [phone] | | | | | | | | +--------+---------+ + + + documented as of this encounter Visit Diagnoses + + | Diagnosis | + + | Hypertension, renal disease, stage 1-4 or unspecified chronic kidney disease - Primary | + + | Coronary artery disease involving salamatof coronary artery of salamatof heart without | | angina pectoris | + + | Hyperlipidemia, mixed Mixed hyperlipidemia | + + documented in this encounter
--- OUTSIDE RECORDS SUMMARY | ~2019-09-12 | XMS | Encounter Summary ---
Demographics + + + | Address | [address] | | | [place] [address] | + + + | Home Phone [...] | Author | [facility] | | | and [place] | + + + | Organization | [facility] [...] | | | | | [place] [address] | | + + + + + | Valentín Saleh | ECON | [address] | | | | | [place] [address] | | + + + + + | Roberto Carlos Lennon | LEVI | [place] | | + + + + + Care Team Providers + +------+ + | Care Chemical Laboratory Chief Name | Role | Phone | + +------+ + PCP | Unavailable | + +------+ + Encounter Details +--------+ + + + + | Date | Type | Department | Care Team | Description | +--------+ + + + + | 10/30/ | Hospital | [facility] | | | | 1999 | Encounter | MED CTR EMERGENCY | | | | | | CENTER [address] | | | | | | [place] | | | | | | [address] | | | | | | [phone] | | | +--------+ + + + [...] | | | | | | [place] [address] | | | | | | [phone] | | | | | | | | +--------+---------+ + + + documented as of this encounter Visit Diagnoses Not on filedocumented in this encounter"
--- OUTSIDE RECORDS SUMMARY | ~2019-09-12 | XMS | Encounter Summary ---
Demographics + + + | Address | [address] | | | [place] [address] | + + + | Home Phone [...] [facility] | | | and [place] | + + + | Organization | [facility] [...] | | | | | [place] [address] | | + + + + + | Valentín Saleh | ECON | [address] | | | | | [place] [address] | | + + + + + | Roberto Carlos Lennon | LEVI | Unknown | | + + + + + Care Team Providers + +------+ + | Care Matrix Inspector Name | Role | Phone | [...] | (MODERATE) (Primary | | | | [place], [place] | [address] [place], [place] | Dx); Vitamin D | | | | [address] | [address] | deficiency | | | | [phone] | | | +--------+ + + + [...] this encounter Progress Zaynab Castellanos RN - 10/31/2013 8:58 AM PDTLabs for nephrology appt on 11/29/13 sent to [facility] documented in thi s encounter Plan of [...] | | | | | | [place] [address] | | | | | | [phone] | | | | | | | [...] + | [facility] | [address] | [place], [place] | [phone] | | [facility] | | [address] | | | - LABORATORY | | | | + + + + + | [facility] | [address] | [place], [place] | | | [facility] | | [address] [place] [address] | | | - LABORATORY | [...] + | [facility] | [address] | [place] | [phone] | | [facility] | | [address] | | | - LABORATORY | | | | + + + + + | [facility] | [address] | [place] | | | [facility] | | [address] | | | - [...] + | [facility] | [address] | [place], [place] | [phone] | | [facility] | | [address] | | | - LABORATORY | | | | + + + + + | [facility] | [address] | [place], [place] | | | [facility] | | [address] [place] [address] | | | - LABORATORY | [...] 1.43 (H) | 0.60 - 1.30 | [facility] | | | | | mg/dL | [facility] | | | | | | MEDICAL | | | | | | CENTER - | | | | | | LABORATORY | | + + + + + + | eGFR if not | 35 (L)Comment: | >=60 | [facility] | | | | GLOMERULAR FILTRATION | mL/min/1.73m2 | [facility] | | | [place] | RATE,ESTIMATED | | MEDICAL | | | | mL/min/1.17t4Hiil than | | CENTER - | | [...] [address] | [place] | [phone] | | [facility] | | [address] | | | - LABORATORY | | | | + + + + + | [facility] | [address] | [place], [place] | | | [facility] | | [address], [facility] | | | - LABORATORY [...]
--- OUTSIDE RECORDS SUMMARY | ~2019-09-12 | XMS | Encounter Summary ---
Demographics + + + | Address | [address] | | | [place] [address] | + + + | Home Phone [...] Author | [facility] | | | and [place] | + + + | Organization | [facility] | | | and [...] | | | | | [place] [address] | | + + + + + | Valentín Saleh | ECON | [address] | | | | | [place] [address] | | + + + + + | Roberto Carlos Lennon | LEVI | [place] | | + + + + + Care Team Providers + +------+ + | Care Floor Specialist Name | Role | Phone | + +------+ + PCP | Unavailable | + +------+ + Encounter Details +--------+ + + + + | Date | Type | Department | Care Team | Description | +--------+ + + + + | 11/01/ | Hospital | [facility] | | | | 2002 | Encounter | MED CTR LABORATORY | | | | | | [address] | | | | | | [place] | | | | | | [address] | | | | | | [phone] | | | +--------+ + + + [...] | | | | | | [place] [address] | | | | | | [phone] | | | | | | | | +--------+---------+ + + + documented as of this encounter Visit Diagnoses Not on filedocumented in this encounter"
--- OUTSIDE RECORDS SUMMARY | ~2019-09-12 | XMS | Encounter Summary ---
Demographics + + + | Address | [address] | | | [place] [address] | + + + | Home Phone [...] Author | [facility] | | | and [place] | + + + | Organization | [facility] | [...] [address] | | | | | [place] [address] | | + + + + + | Valentín Saleh | ECON | [address] | | | | | [place] [address] | | + + + + + | Roberto Carlos Lennon | LEVI | Unknown | | + + + + + Care Team Providers + +------+ + | Care Publications Editor Name | Role | Phone | + [...] Description | +--------+--------+ + + + | 06/25/ | Refill | [facility] | Francois Pascal, | Medication Refill | | 2013 | | MEDICINE [facility] [place] | [address] | | | | | [address]VE [place], | [address] [place], | | | | | [place] [address] | [place] [address] | | | | | [phone] | [phone] | | | | | | | [...] | | | | | | [place] [address] | | | | | | [phone] | | | | | | | | +--------+---------+ + + + documented as of this encounter Visit Diagnoses Not on filedocumented in this encounter"
--- OUTSIDE RECORDS SUMMARY | ~2019-09-12 | XMS | Clinical Summary ---
Demographics + + + | Address | [address] | | | [place] [address] | + + + | Home Phone | | + + + | Preferred Language | Unknown | + + + | Marital Status | Single | + + + | Uatsdin Affiliation | UNK | + + + [...] | | | | | [place] [address] | | + + + + + | None None | ECON | Unknown | Unavailable | + + + + + Care Team Providers + +------+ + | Care Power Cleaner Operator Name | Role | Phone | + +------+ + PCP | Unavailable | + +------+ + Source Comments UBALDO is fully live on both [facility] and [facility] Allergies No Known Allergies Medications + + [...] | MODA | xxxxxxxxx | Effect | [phone] | [address] | [address] | | | [address] | | geovany | [address] | [address] | | | | [place] | | for | | [place], | | | | | | all | | [place] [address] | | | | | | dates [...] | | | | | | | [address] | | + +--------+ +--------+ + +--------+ [...] | 1931 | [phone] | [place] [address] | | | ian | | | 1 (Home) | | + +--------+ +--------+ + +"
--- OUTSIDE RECORDS SUMMARY | ~2019-09-12 | XMS | Encounter Summary ---
Demographics + + + | Address | [address] | | | [place] [address] | + + + | Home Phone [...] + + | Author | [facility] | | | and [place] | + + + | Organization | [facility] | | | and [place] | + + + | Address | Unknown | + + + | Phone | Unavailable | + + + Support + + + + + | Name | Relationship | Address | Phone | + + + + + | Sigrid Lennon | ECON | [address] | | | | | [place] [address] | | + + + + + | Valentín Saleh | ECON | [address] | | | | | [place] [address] | | + + + + + | Roberto Carlos Lennon | LEVI | Unknown | | + + + + + Care Team Providers + +------+ + | Care Uncrater Name | Role | Phone | + [...] | instability | [address] | | | | [address] | [address] | [place], | | | | | (ICD-10-CM) | [place] | [place] [address] | | | | | - [address] | [place] | Phone: | | | | | (ICD-9-CM) - | [address] | [phone] | | | | | Gait | Phone: | Fax: | | | | | instability | [phone] | [phone] | | | | | Procedures | Fax: | | | | | | pt eval | [phone] | | +--------+ + + + + + Encounter Details +--------+---------+ + + + | Date | Type | Department | Care Team | Description | +--------+---------+ + + + | 02/19/ | Office | [facility] | Francois Pascal, | Posture imbalance | | 2015 | Visit | MED CTR THERAPY PT | MD [address] | (Primary Dx); | | | | OP [address] | [address] [place], | Impaired functional | | | | [place] | [place] [address] | mobility, balance, | | | | [address] | [phone] | gait, and endurance; | | | | [phone] | | Left ankle pain | | | | | Cheyenne Caballero, | | | | | | DRY PAN FEEDER [address] | | | | | | [place] | | | | | | [address] | | | | | | | [...] of this encounter Progress Notes Cheyenne Caballero, DRY PAN FEEDER - 02/19/2015 8:43 AM PSTFormatting of this note might be different f rom the original. [facility] CTR THERAPY PT OP [address] [place] [address] Physical Therapy Daily Treatment Note Date: 02/19/2015 Patient Information Patient Name: Alyson Lennon Date of : 1930 Age: 84 y.o. Encounter Diagnoses Code Name Primary? R29.3 Posture imbalance Yes Z74.09 Impaired functional mobility, balance, gait, and endurance M25.572 Left ankle pain Date of Onset: 10/24/2014 Referring Provider: Francois Pascal MD Rehab Precautions Office Visit from 12/24/[address] [facility] CTR THERAPY PT OP Rehab Precautions Precautions Comments fall risk Start Time: 0800 Stop time: 0845 Duration: 45 minutes Timed Treatment Codes: 45 minutes # of PT Visits to Date: 11 Subjective: Reports her ankle is hurting more today. Naylor fine yesterday. Feels it may be the colder te mps that is bothering it. Pain Assessment: Pain Scale Used: NUMERIC Pain Rating Pre Assessment: 6 Pain Rating Post Assessment: 2 Location: left ankle Objective: Education: do stretches throughout the day Manual therapy to increase ROM of left ankle- Stretching of left ankle DF, PF, inversion, eversion Applied kinesiotape to lateral and anterior aspect of left ankle and foot to reduce swellin g, instructed pt to remove if it itches Stretching and strengthening ex and balance training to reduce fall risk- Tilt board side to side, fwd/back Assessment: Good pain relief with manual therapy today. Plan: Cont with balance training, stretches, strengthening. Electronically signed by: Cheyenne Caballero PTA, 02/19/2015 8:43 Patient Name: Alyson Lennon/: 1930/ documented in [...] | | | | | | [place] [address] | | | | | | [phone] | | | | | | | [...]
--- OUTSIDE RECORDS SUMMARY | ~2019-09-12 | XMS | Encounter Summary ---
Demographics + + + | Address | [address] | | | [place] [address] | + + + | Home Phone [...] Author | [facility] | | | and Clarkeana | + + + | Organization | [facility] | [...] | | | | | [place] [address] | | + + + + + | Valentín Saleh | ECON | [address] | | | | | [place] [address] | | + + + + + | Roberto Carlos Lennon | LEVI | [place] | | + + + + + Care Team Providers + +------+ + | Care Top Executive Name | Role | Phone | + +------+ + PCP | Unavailable | + +------+ + Encounter Details +--------+ + + + + | Date | Type | Department | Care Team | Description | +--------+ + + + + | 03/23/ | Hospital | [facility] | David Urban MD | | | 2002 | Encounter | MED CTR GENERIC OP | [address], [place] | | | | | CONV DEPT [address] | [address] [place], [place] | | | | | [address] [place], | [address] | | | | | [place] [address] | | | | | | [phone] | | | +--------+ + + + [...] | | | | | | [place] [address] | | | | | | [phone] | | | | | | | | +--------+---------+ + + + documented as of this encounter Visit Diagnoses Not on filedocumented in this encounter"
--- OUTSIDE RECORDS SUMMARY | ~2019-09-12 | XMS | Encounter Summary ---
Demographics + + + | Address | [address] | | | [place] [address] | + + + | Home Phone [...] | Author | [facility] | | | and [place] | + + + | Organization | [facility] | [...] | | | | | [place] [address] | | + + + + + | Valentín Saleh | ECON | [address] | | | | | [place] [address] | | + + + + + | Roberto Carlos Lennon | LEVI | Unknown | | + + + + + Care Team Providers + +------+ + | Care Steam Train Driver Name | Role | Phone | [...] Description | +--------+--------+ + + + | 09/23/ | Refill | [facility] | Francois Pascal, | Medication Refill | | 2012 | | [facility] [place] | [address] | | | | | [address] | [address] [place], | | | | | [place] | [place] [address] | | | | | [address] | [phone] | | | | | [phone] | | | +--------+--------+ + + + [...] | | | | | | [place] [address] | | | | | | [phone] | | | | | | | | +--------+---------+ + + + documented as of this encounter Visit Diagnoses Not on filedocumented in this encounter"
--- OUTSIDE RECORDS SUMMARY | ~2019-09-12 | XMS | Encounter Summary ---
Demographics + + + | Address | [address] | | | [place] [address] | + + + | Home Phone [...] Author | [facility] | | | and [place] | + + + | Organization | [facility] [...] | | | | | [place] [address] | | + + + + + | Valentín Saleh | ECON | [address] | | | | | [place] [address] | | + + + + + | Roberto Carlos Lennon | LEVI | [place] | | + + + + + Care Team Providers + +------+ + | Care Traffic Signal Technician Name | Role | Phone | + +------+ + PCP | Unavailable | + +------+ + Encounter Details +--------+ + + + + | Date | Type | Department | Care Team | Description | +--------+ + + + + | 11/02/ | Hospital | [facility] | | | | 2005 | Encounter | MED CTR XRAY [address] | | | | | | [place] | | | | | | [place] [address] | | | | | | [phone] | | | +--------+ + + + [...] | | | | | | [place] [address] | | | | | | [phone] | | | | | | | | +--------+---------+ + + + documented as of this encounter Visit Diagnoses Not on filedocumented in this encounter"
--- OUTSIDE RECORDS SUMMARY | ~2019-09-12 | XMS | Encounter Summary ---
Demographics + + + | Address | [address] | | | [place] [address] | + + + | Home Phone [...] + | Author | [facility] | | | and [place] | + + + | Organization | [facility] | [...] | | | | | [place] [address] | | + + + + + | Valentín Saleh | ECON | [address] | | | | | [place] [address] | | + + + + + | Roberto Carlos Lennon | LEVI | Unknown | | + + + + + Care Team Providers + +------+ + | Care Insole Cementer Name | Role | Phone | + +------+ + | Francois Pascal MD | PCP | | + +------+ + Reason for Visit + +--------+ + | Reason | Onset | Comments | | | Date | | + +--------+ + | Pharmacy / Med | 10/20/ | | | | 2019 | | + +--------+ + | SNF Discharge | 10/20/ | | | | 2019 | | + +--------+ + Encounter Details +--------+ + + + + | Date | Type | Department | Care Team | Description | +--------+ + + + + | 10/20/ | Telephone | [facility] | Francois Pascal, | Pharmacy / Med; SNF | | 2019 | | MEDICINE [facility] | [address] | Discharge | | | | [address] | [address] [place], | | | | | [place] | [place] [address] | | | | | [address] | [phone] | | | | | [phone] | | | +--------+ + + + [...] this encounter Miscellaneous Notes Addendum Note - Yamileth Bah RN - 11/01/2018 12:04 PM PDT Addended by: BOLA BAH on: 11/01/2018 12:04 Modules accepted: Orders elephone Encoun ter - Yamileth Bah RN - 11/01/2018 11:53 AM PDTMedications ordered to [facility] aricVa Bridget notified. ddendum Note - Yamileth Sher RN - 10/27/2018 2:31 PM PDT Addended by: YAMILETH BAH on: 10/27/2018 14:31 Modules accepted: Orders ddendum Note - Cassy Garsia RN - 10/27/2018 10:50 AM PDT Addended by: CASSY GARSIA on: 10/27/2018 10: 50 Modules accepted: Orders elephone Encounter - Cassy Garsia RN - 10/27/2018 10:46 AM PDTMedications pended for provider review. Elec tronically signed by Cassy Garsia RN at 10/27/2018 10:50 AM PDTTelephone Encounter - Gayle Alejo ra - 10/27/2018 10:15 AM PDTTamaramirah called to check on status of orders for medica tions. Please advise. el ephone Encounter - Kacy Delaney Religious Healer - 10/26/2018 11:37 AM PDTPaperwork arnulfo wood to Senthil RN elephone Encounter - Lisa Pittman RN - 10/25/2018 5:23 PM PDTCalled Renee Giang and patient was discharged 10/18/2018 to the adult family home. Called Theresa and she told me a list of what she needed right away. Insulin novolog Insulin lantus atrovastatin lexapro Methotrexate Sent in all but the methotrexate per protocol to [facility] in [place]. The methotrexate bebe l need to be signed by the provider. She also needs refills on the rest of her medications. I asked her to send us their current medication list to make sure that the medications are accurate and match to our list so gerber t we can remove what she isn't taking. (for example Theresa told me patient is not taking allopurinol or hydrocodone). She is also requesting bed rails to him assistant the patient in her movement and turning in th e bed. Also for safety as the patient has fallen out of bed in the middle of the night. I sp kenny with Theresa regarding the bed rails because we do not want them to be used to keep brigido ent in bed (as a restraint). Theresa confirmed that they wanted the bed rails for mobility/t urning in her bed. Bed rails are pended. elephone Encounter - Ayanna Mederos RN - 10/25/2018 4:51 PM PDTReceived phone call from Bridget Xie, gas turbine powerplant mechanic of the [facility] in [place]. Her phone number is [phone]. States that since the patient is new to her facility, she needs all new medication order se nt to [facility] in [place]. States she only has about 3 days left. The orders need to includ e her OTC medications as well. Told her we were of the impression that the patient would be transferring out of her facili ty. She states that the patient is not leaving. She will be staying there. Routing to [facility] for assistance with this as it has become very involved and also involves a recent discharge from a SNF. Please see the other messages below for more information and the other things that are need ed. elephone Encount er - Cassy Garsia RN - 10/25/2018 3:53 PM PDTCalled and left a message at [facility] social service liaison to please return my call MARIANNE regarding patient. I also called both numbers listed for [facility] trying to reach [facility] . I left a voicemail for a return call on both numbers. elephone Encounter - Caprice Ashley RN - 10/26/19 19 9:25 AM PDTLeft message for egg caser at [facility]. Is patient being admitted to their facility and if so when will they be admitted?Electronic ally signed by Caprice Ashley RN at 10/25/2018 9:26 AM PDTTelephone Encounter - Nohelia Jordan - 10/25/2018 7:49 AM PDTTammara called back from [facility] ome needing to speak with the nurse. She needs written orders for all the patients medicati ons and also needs all medications sent to [facility] in [place] as she is almost completely out of her medications and insulin. They also need written orders for all of the patient's o sif-hda-aclimff medications as well, arm protectors, etc. She stated current OTC medicatio ns that need written orders are folic acid, Milk of Magnesia, MiraLax, aspirin, calcium, vit piper D3, acetaminophen and Aspercreme. Theresa can be reached at [phone] or [phone] . elephone Encounter - Caprice Ashley RN - 10/20/2018 3:03 PM PDTTried to call Theresa back. The "phone number" she gave us is a fax machine. If she calls back, tell her that Dr Thayer signed orders yesterday to have patient readmi tted to [facility] Giang. elephone Encounter - Roshni Nance - 10/20/2018 1:52 PM PDTTheresa called back statin g she needs written orders for patient's bed rails, to keep patient from falling out of bed. Another order to alter medications, asked to be faxed to [phone], please advise. Juanis avilanically signed by Roshni Nance at 10/20/2018 1:55 PM PDTTelephone Encounter - Diana Nance - 10/20/2018 11:01 AM PDTTadebo from [facility] called stating patient was transferred to her facility. Needs pharmacy to changed to [facility] in [place]. Also stated she is out of syringes, Renee Gaing left her with none, please advise. 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
--- OUTSIDE RECORDS SUMMARY | ~2019-09-12 | XMS | Encounter Summary ---
Demographics + + + | Address | [address] | | | [place] [address] | + + + | Home Phone [...] | Author | [facility] | | | and [place] | + + + | Organization | [facility] [...] | | | | | [place] [address] | | + + + + + | Valentín Saleh | ECON | [address] | | | | | [place] [address] | | + + + + + | Roberto Carlos Lennon | LEVI | Unknown | | + + + + + Care Team Providers + +------+ + | Care Editorial Project Manager Name | Role | Phone | [...] | | | | | | [place] [address] | | | | | | [phone] | | | +--------+ + + + [...] | | | | | | [place] [address] | | | | | | [phone] | | | | | | | | +--------+---------+ + + + documented as of this encounter Visit Diagnoses Not on filedocumented in this encounter"
--- OUTSIDE RECORDS SUMMARY | ~2019-09-12 | XMS | Encounter Summary ---
Demographics + + + | Address | [address] | | | [place] [address] | + + + | Home Phone [...] | Author | [facility] | | | and [place] | + + + | Organization | [facility] [...] | | | | | [place] [address] | | + + + + + | Valentín Saleh | ECON | [address] | | | | | [place] [address] | | + + + + + | Roberto Carlos Lennon | LEVI | Unknown | | + + + + + Care Team Providers + +------+ + | Care Range Master Name | Role | Phone | + [...] [address] | [address] [facility] | (MODERATE) (Primary | | | | [place], [place] | [address] [place], [place] | Dx); Gout, | | | | [address] | [address] | unspecified cause, | | | | [phone] | | unspecified | | | | [...] | | | | | | [place] [address] | | | | | | [phone] | | | | | | | | +--------+---------+ + + + documented as of this encounter Results Uric Acid [...] + | [facility] | [address] | [place] | [phone] | | [facility] | | [address] | | | - LABORATORY | | [...] | 25 Hydroxy | | | [facility] | | | | | | [...] [address] | [place] | [phone] | | [facility] | | [address] | | | - LABORATORY | | | | + + + + + Parathyroid Hormone, Intact (10/04/2016 11:04 AM PDT) + +-------+ + + + | Component | Value | Ref Range | Performed | Pathologist | | | | | At | Signature | + +-------+ + + + | PTH Intact | 20 | 12 - 88 pg/mL | [facility] | | | | | [...] [address] | [place] | [phone] | | [facility] | | [address] | | | - LABORATORY | | [...] mL/min/1.73m2 | [facility] | | | [facility] | | | MEDICAL | | | [...] [address] | [place] | [phone] | | [facility] | | [address] | | | - LABORATORY | | [...]
--- OUTSIDE RECORDS SUMMARY | ~2019-09-12 | XMS | Encounter Summary ---
Demographics + + + | Address | [address] | | | [place] [address] | + + + | Home Phone [...] Author | [facility] | | | and [place]ana | + + + | Organization | [facility] | [...] | | | | | [place] [address] | | + + + + + | Valentín Saleh | ECON | [address] | | | | | [place] [address] | | + + + + + | Roberto Carlos Lennon | LEVI | Unknown | | + + + + + Care Team Providers + +------+ + | Care Tele Rn Name | Role | Phone | + +------+ + | Francois Pascal MD | PCP | | + +------+ + Reason for Visit +---------+--------+ + | Reason | Onset | Comments | | | Date | | +---------+--------+ + | Broom Maker | 08/11/ | | | | 2018 | | +---------+--------+ + Encounter Details +--------+ + + + + | Date | Type | Department | Care Team | Description | +--------+ + + + + | 08/11/ | Telephone | [facility] | Diane Foster FNP | Broom Maker | | 2017 | | MEDIC[facility] [place] | [address] | | | | | [address] | [place] | | | | | [place] | [address] | | | | | [address] | | | | | | [phone] | | | +--------+ + + + [...] encounter Miscellaneous Notes Telephone Encounter - Diane Foster FNP - 08/11/2017 7:59 PM PDTOn call: Received phone c all from nurse at [facility] patient fell without injury at 7 PM this evening. Mohini l signs are stable. She was found on the floor. She stated that she was trying to stand an d the wheelchair moved out from under her.Electronically signed by SUREKHA Patrick at 09/2017 8:00 PM PDTdocumented in this encounter Plan of [...] | | | | | | [place] [address] | | | | | | [phone] | | | | | | | | +--------+---------+ + + + documented as of this encounter Visit Diagnoses Not on filedocumented in this encounter"
--- OUTSIDE RECORDS SUMMARY | ~2019-09-12 | XMS | Encounter Summary ---
Demographics + + + | Address | [address] | | | [place] [address] | + + + | Home Phone [...] | [facility] | | | and [place]ana | + + + | Organization | [facility] | | | and [...] | | | | | [place] [address] | | + + + + + | Valentín Saleh | ECON | [address] | | | | | [place] [address] | | + + + + + | Roberto Carlos Lennon | LEVI | Unknown | | + + + + + Care Team Providers + +------+ + | Care Senior Firewall Engineer Name | Role | Phone | [...] [address] | [address] [facility] | (MODERATE) (Primary | | | | [place], [place] | [address] [place], [place] | Dx) | | | | [address] | [address] | | | | | [phone] | | | +--------+ + + + [...] for nephrology appt on 08/31/12 sent to [facility] documented in thi s encounter Plan of [...] | | | | | | [place] [address] | | | | | | [phone] | | | | | | | [...] + | [facility] | [address] | [place] | [phone] | | [facility] | | [address] | | | - LABORATORY | | | | + + + + + | [facility] | [address] | [place] | | | [facility] | | [phone] [place] [address] | | | - LABORATORY | | | | + + + + + documented in this encounter Visit Diagnoses + + | Diagnosis | + + | CHRONIC KIDNEY DISEASE STAGE III (MODERATE) - Primary Chronic kidney disease, Stage | | III (moderate) | + + documented in this encounter"
--- OUTSIDE RECORDS SUMMARY | ~2019-09-12 | XMS | Encounter Summary ---
Demographics + + + | Address | [address] | | | [place] [address] | + + + | Home Phone [...] Author | [facility] | | | and [place] | + + + | Organization | [facility] | [...] | | | | | [place] [address] | | + + + + + | Valentín Saleh | ECON | [address] | | | | | [place] [address] | | + + + + + | Roberto Carlos Lennon | LEVI | Unknown | | + + + + + Care Team Providers + +------+ + | Care Director Corporate Compliance Name | Role | Phone | + [...] + + + + | 01/20/ | Documentati | [facility] | Cheyenne Caballero, | No Show | | 2014 | on | MED CTR THERAPY PT | ORTHOPEDIC PHYSICIAN [address] | | | | | OP [address] | [place] | | | | | [place] | [address] | | | | | [address] | | | | | | [phone] | | | +--------+ + + + [...] encounter Progress Notes Cheyenne Caballero PTA - 01/20/2015 10:44 [facility] [address] [place] [address] Cancellation/No Show Date: 01/20/2015 Patient Information Patient Name: Alyson Lennon Date of : 1930 Age: 84 y.o. Reason for missed visit: no show Phone call placed: yes - left message with time and date of next appt Plan: cont with POC Electronically signed by: Cheyenne Caballero PTA, 01/20/2015 10:44 Patient Name: Alyson Lennon/: 1930/ documented in [...] | | | | | | [place] [address] | | | | | | [phone] | | | | | | | [...]
--- OUTSIDE RECORDS SUMMARY | ~2019-09-12 | XMS | Encounter Summary ---
Demographics + + + | Address | [address] | | | [place] [address] | + + + | Home Phone [...] Author | [facility] | | | and [place] | + + + | Organization | [facility] | | | [...] | | | | | [place] [address] | | + + + + + | Valentín Saleh | ECON | [phone] | | | | | [place] [address] | | + + + + + | Roberto Carlos Lennon | LEVI | Unknown | | + + + + + Care Team Providers + +------+ + | Care Business Intelligence Engineer Name | Role | Phone | + +------+ + | Francois Pascal MD | PCP | | + +------+ + Reason for Visit + +--------+ + | Reason | Onset | Comments | | | Date | | + +--------+ + | Medical Clearance | 06/02/ | | | | 2016 | | + +--------+ + Encounter Details +--------+ + + + + | Date | Type | Department | Care Team | Description | +--------+ + + + + | 06/02/ | Telephone | [facility] | Francois Pascal, | Medical Clearance | | 2016 | | [address] | [address] [facility] [address] | | | | | [place], | [address] [place], | | | | | [place] [address] | [place] [address] | | | | | [phone] | [phone] | | | | | | | [...] Telephone Encounter - Airam Menjivar RN - 06/02/2016 4:26 PM [facility]aci [facility] for patient. May call her at [phone]. Surgery June 08. documented in this encounter Plan of Treatment +--------+---------+ + + + | Date | Type | Specialty | Care Team | Description | +--------+---------+ + + + | 12/06/ | Office | Cardiology | Stephenie Paul, | | | 2019 | Visit | | MD [address] | | | | | | [place], | | | | | | [place] [address] | | | | | | [phone] | | | | | | | | +--------+---------+ + + + documented as of this encounter Visit Diagnoses Not on filedocumented in this encounter"
--- OUTSIDE RECORDS SUMMARY | ~2019-09-12 | XMS | Encounter Summary ---
Demographics + + + | Address | [address] | | | [place] [address] | + + + | Home Phone [...] | Author | [facility] | | | and [place] | + + + | Organization | [facility] | | [...] | | | | | [place] [address] | | + + + + + | Valentín Saleh | ECON | [address] | | | | | [place] [address] | | + + + + + | Roberto Carlos Lennon | LEVI | [place] | | + + + + + Care Team Providers + +------+ + | Care Nurseryperson Name | Role | Phone | + +------+ + PCP | Unavailable | + +------+ + Encounter Details +--------+ + + + + | Date | Type | Department | Care Team | Description | +--------+ + + + + | 12/23/ | Hospital | [facility] | | | | 2006 | Encounter | MED CTR LABORATORY | | | | | | [address] [place] | | | | | | [place] | | | | | | [address] | | | | | | [phone] | | | +--------+ + + + [...] | | | | | | [place] [address] | | | | | | [phone] | | | | | | | | +--------+---------+ + + + documented as of this encounter Visit Diagnoses Not on filedocumented in this encounter"
--- OUTSIDE RECORDS SUMMARY | ~2019-09-12 | XMS | Encounter Summary ---
Demographics + + + | Address | [address] | | | [place] [address] | + + + | Home Phone [...] + | Author | [facility] | | | and [place] | + + + | Organization | [facility] [...] | | | | | [place] [address] | | + + + + + | Valentín Saleh | ECON | [phone] | | | | | [place] [address] | | + + + + + | Roberto Carlos Lennon | LEVI | Unknown | | + + + + + Care Team Providers + +------+ + | Care Rubber Process Hand Name | Role | Phone | [...] | instability | [address] | [place] | | | | n | [address] | [address] | [place], | | | | | (ICD-10-CM) | [place] | [place] [address] | | | | | - 781.2 | [place] | Phone: | | | | | (ICD-9-CM) - | [address] | [phone] | | | | | Gait | Phone: | Fax: | | | | | instability | [phone] | [phone] | | | | | Procedures | Fax: | | | | | | pt eval | [phone] | | +--------+ + + + + + Encounter Details +--------+---------+ + + + | Date | Type | Department | Care Team | Description | +--------+---------+ + + + | 01/27/ | Office | [facility] | Francois Pascal, | Posture imbalance | | 2015 | Visit | MED CTR THERAPY PT | MD [address] | (Primary Dx); | | | | OP [address] | [address] [place], | Impaired functional | | | | [place] | [place] [address] | mobility, balance, | | | | [address] | [phone] | gait, and endurance; | | | | [phone] | | Left ankle pain | | | | | Cheyenne Caballero, | | | | | | PRICING STRATEGIST [address] | | | | | | [place] | | | | | | [address] | | | | | | | [...] of this encounter Progress Notes Cheyenne Caballero, PRICING STRATEGIST - 01/27/2015 12:12 PM PSTFormatting of this note might be different f rom the original. [facility] THERAPY PT OP [address] [place] [address] Physical Therapy Daily Treatment Note Date: 01/27/2015 Patient Information Patient Name: Alyson Lennon Date of : 1930 Age: 84 y.o. Encounter Diagnoses Code Name Primary? R29.3 Posture imbalance Yes Z74.09 Impaired functional mobility, balance, gait, and endurance M25.572 Left ankle pain Date of Onset: 10/24/14 Referring Provider: Francois Pascal MD Rehab Precautions Office Visit from 12/24/2014 in [facility] THERAPY PT OP Rehab Precautions Precautions Comments fall risk Start Time: 1000 Stop time: 1045 Duration: 45 minutes Timed Treatment Codes: 45 minutes # of PT Visits to Date: 8 Subjective: She thinks she favors the left leg, takes smalerr steps because it is painful if she has to o much range of motion on the left ankle. Pain Assessment Pain Scale Used: NUMERIC Pain Rating Pre Assessment: 2 Pain Rating During Assessment: 4 Pain Rating Post Assessment: 2 Location: left ankle Objective: Education: perform HEP daily, goal is to feel a stretch with the movements. Added to HEP Manual Therapy: to increase ROM Manual stretching into DF/PF, inversion, eversion Exercises to increase ankle ROM and strength- Ankle alpahabet, ankle AROm with foot on stepping stone flat side up Sidestepping and bkwd walking on ramp with emphasis on equal stride length Sit to stands with emphasis on sequencing Neuromuscular re-ed to improve balance for safe ambulation, decrease fall risk- Standing on discs with head turns mod assist Standing on foam with head turns, eyes open/closed, with small [place] CGA-mod assist, stagger stance mod assist Clock stepping ex CGA-emphasis on equal step length, weight shifts-added to HEP with one hope nd on counter Sidestep, bkwd walking, marching at rail, emphasis on equal stride length and weight shifts to left foot-added to HEP Assessment: Moderate cues for sequencing with sit to stands. Is able to stand up relatively easily if s he uses proper sequencing. Hesitant to shift weight to left foot. Plan: Continue with manual therapy, strengthening, and balance training. Electronically signed by: Cheyenne Caballero PTA, 01/27/2015 12:15 Patient Name: Alyson Lennon/: 1930/ documented in [...] | | | | | | [place] [id number] | | | | | | [phone] | | | | | | | [...]
--- OUTSIDE RECORDS SUMMARY | ~2019-09-12 | XMS | Encounter Summary ---
Demographics + + + | Address | [address] | | | [place] [address] | + + + | Home Phone [...] Author | [facility] | | | and [place] | + + + | Organization | [facility] | | | and [...] | | | | | [place] [address] | | + + + + + | Valentín Saleh | ECON | [phone] | | | | | [place] [address] | | + + + + + | Roberto Carlos Lennon | LEVI | [place] | | + + + + + Care Team Providers + +------+ + | Care Thread Clipper Name | Role | Phone | + +------+ + PCP | Unavailable | + +------+ + Encounter Details +--------+ + + + + | Date | Type | Department | Care Team | Description | +--------+ + + + + | 12/01/ | Hospital | [facility] | | | | 2005 | Encounter | MED CTR LABORATORY | | | | | | [address] | | | | | | [place] | | | | | | [address] | | | | | | [phone] | | | +--------+ + + + [...] | | | | | | [place] [address] | | | | | | [phone] | | | | | | | | +--------+---------+ + + + documented as of this encounter Visit Diagnoses Not on filedocumented in this encounter"
--- OUTSIDE RECORDS SUMMARY | ~2019-09-12 | XMS | Encounter Summary ---
Demographics + + + | Address | [address] | | | [place] [address] | + + + | Home Phone [...] Author | [facility] | | | and [place] | + + + | Organization | [facility] | | [...] | | | | | [place] [address] | | + + + + + | Valentín Saleh | ECON | [address] | | | | | [place] [address] | | + + + + + | Roberto Carlos Lennon | LEVI | Unknown | | + + + + + Care Team Providers + +------+ + | Care Ring Sewer Name | Role | Phone | + +------+ + | Francois Pascal MD | PCP | | + +------+ + Reason for Visit + +--------+ + | Reason | Onset | Comments | | | Date | | + +--------+ + | Vaginitis | 11/08/ | patient reports symptoms of vaginitis | | | 2014 | | + +--------+ + Encounter Details +--------+ + + + + | Date | Type | Department | Care Team | Description | +--------+ + + + + | 11/08/ | Telephone | [facility] | Francois Pascal, | Vaginitis (patient | | 2014 | | MEDICINE [address] | [address] | reports symptoms of | | | | [address] [place], | [address] [place], | vaginitis) | | | | [place] [address] | [place] [address] | | | | | [phone] | [phone] | | | | | | | [...] Telephone Encounter - Mildred Gunn RN - 11/08/2014 3:43 PM PDTPatient called to report s/s of vaginitis x 1 day. Requesting RX for this. PCP out of office this afternoon. Advis ed Urgent Care. Patient verbalized understanding. documented in this encounter Plan of [...] | | | | | | [place] [address] | | | | | | [phone] | | | | | | | | +--------+---------+ + + + documented as of this encounter Visit Diagnoses Not on filedocumented in this encounter"
--- OUTSIDE RECORDS SUMMARY | ~2019-09-12 | XMS | Encounter Summary ---
Demographics + + + | Address | [address] | | | [place] [address] | + + + | Home Phone [...] Author | [facility] | | | and [place] | + + + | Organization | [facility] | [...] | | | | | [place] [address] | | + + + + + | Valentín Saleh | ECON | [phone] | | | | | [place] [address] | | + + + + + | Roberto Carlos Lennon | LEVI | Unknown | | + + + + + Care Team Providers + +------+ + | Care Category Manager Name | Role | Phone | [...] | 09/28/ | Refill | [facility] [place] [facility] | Francois Pascal, | Medication Refill | | 2014 | | MEDICINE [place] | [address] | | | | | [address] | [address] [place], | | | | | [place] | [place] [address] | | | | | [address] | [phone] | | | | | [phone] | | | +--------+--------+ + + + [...] | | | | | | [place] [address] | | | | | | [phone] | | | | | | | | +--------+---------+ + + + documented as of this encounter Visit Diagnoses Not on filedocumented in this encounter"
--- OUTSIDE RECORDS SUMMARY | ~2019-09-12 | XMS | Encounter Summary ---
Demographics + + + | Address | [address] | | | [place] [address] | + + + | Home Phone [...] Author | [facility] | | | and [place] | + + + | Organization | [facility] | | [...] | | | | | [place] [address] | | + + + + + | Valentín Saleh | ECON | [phone] | | | | | [place] [address] | | + + + + + | Roberto Carlos Lennon | LEVI | Unknown | | + + + + + Care Team Providers + +------+ + | Care Health Tech Name | Role | Phone | + [...] Description | +--------+--------+ + + + | 02/15/ | Refill | [facility] [place] | Stephenie Paul, | Medication Refill | | 2013 | | CARDIOLOGY [address] | MD [address] [place] | | | | | [place], | [place], | | | | | [place] [address] | [place] [address] | | | | | [phone] | [phone] | | | | | | | [...] | | | | | | [place] [address] | | | | | | [phone] | | | | | | | | +--------+---------+ + + + documented as of this encounter Visit Diagnoses Not on filedocumented in this encounter"
--- OUTSIDE RECORDS SUMMARY | ~2019-09-12 | XMS | Encounter Summary ---
Demographics + + + | Address | [address] | | | [place] [address] | + + + | Home Phone [...] | [facility] | | | and [place] | + + + | Organization | [facility] [...] | | | | | [place] [address] | | + + + + + | Valentín Saleh | ECON | [address] | | | | | [place] [address] | | + + + + + | Roberto Carlos Lennon | LEVI | [place] | | + + + + + Care Team Providers + +------+ + | Care Lumber Yard Worker Name | Role | Phone | + +------+ + PCP | Unavailable | + +------+ + Encounter Details +--------+ + + + + | Date | Type | Department | Care Team | Description | +--------+ + + + + | 04/29/ | Hospital | [facility] | Mauricio Rider | | | 2010 | Encounter | MED CTR LABORATORY | MD [place] [address] [place] [address] | | | | | [address] | [place] | | | | | [place] | [address] | | | | | [address] | | | | | | [phone] | | | +--------+ + + + [...] | | | | | | [place] [address] | | | | | | [phone] | | | | | | | | +--------+---------+ + + + documented as of this encounter Visit Diagnoses Not on filedocumented in this encounter"
--- OUTSIDE RECORDS SUMMARY | ~2019-09-12 | XMS | Encounter Summary ---
Demographics + + + | Address | [address] | | | [place] [address] | + + + | Home Phone [...] Author | [facility] | | | and [place] | + + + | Organization | [facility] | [...] | | | | | [place] [address] | | + + + + + | Valentín Saleh | ECON | [phone] | | | | | [place] [address] | | + + + + + | Roberto Carlos Lennon | LEVI | Unknown | | + + + + + Care Team Providers + +------+ + | Care Acds Block 1 Operator Name | Role | Phone | [...] + + | 11/23/ | Office | [facility] | Francois Pascal, | Cellulitis, | | 2018 | Visit | [facility] | [address] | unspecified | | | | [address] | [address] [place], | cellulitis site; | | | | [place], [place] | [place] [address] | Cellulitis and | | | | [address] | [phone] | abscess of foot | | | | [phone] | | | +--------+---------+ + + + [...] | 2019 | Visit | | [address] [facility] | | | | | | [place], | | | | | | [place] [address] | | | | | | [phone] | | | | | | | | +--------+---------+ + + + documented as of this encounter Visit Diagnoses + + | Diagnosis | + + | Cellulitis, unspecified cellulitis site | + + | Cellulitis and abscess of foot Cellulitis and abscess of foot, except toes | + + documented in this encounter"
--- OUTSIDE RECORDS SUMMARY | ~2019-09-12 | XMS | Encounter Summary ---
Demographics + + + | Address | [address] | | | [place] [address] | + + + | Home Phone [...] + | Author | [facility] | | | and [place] | + + + | Organization | [facility] | [...] | | | | | [place] [address] | | + + + + + | Valentín Saleh | ECON | [phone] | | | | | [place] [address] | | + + + + + | Roberto Carlos Lennon | LEVI | Unknown | | + + + + + Care Team Providers + +------+ + | Care Multimedia Services Coordinator Name | Role | Phone | + +------+ + | Francois Pascal MD | PCP | | + +------+ + Encounter Details +--------+ + + + + | Date | Type | Department | Care Team | Description | +--------+ + + + + | 12/19/ | Orders Only | [facility] [place] | [place], | Chronic kidney | | 2011 | | NEPHROLOGY [address] | [address] | disease, stage III | | | | [address] | [address] | (moderate); HTN CKD | | | | [place], [place] | [address] [place], [place] | UNS W/CKD STAGE I | | | | [address] | [address] | THRU STAGE IV/UNS | | | | [phone] | | | +--------+ + + + [...] | | | | | | [place] [address] | | | | | | [phone] | | | | | | | | +--------+---------+ + + + documented as of this encounter Results Protein creatinine ratio, urine [...] | RATIO,URINE | CALCULATED BECAUSE | | [facility] | | | | MEASURED VALUE FOR [...] [address] | [place] | [phone] | | [facility] | | [address] | | | - LABORATORY | | | | + + + + + | [facility] [facility] | [address] | [place], [place] | | | [facility] | | [address], [facility] | | | - LABORATORY | [...] + | [facility] | [address] | [place] | [phone] | | [facility] | | [address] | | | - LABORATORY | | | | + + + + + | [facility] | [address] | [place] | | | [facility] | | [address] | | | - LABORATORY [...] | | Cells | | | [facility] | | | | | [...] | | | Neutrophils | | | [facility] | | | | | | MEDICAL | | | | | | CENTER - | | | | | | LABORATORY | | + + + + + + | Absolute | 2.1 | 0.6 - 3.2 K/uL | [facility] | | | Lymphocytes | | | [facility] | | [...] + | [facility] | [address] | [place] | [phone] | | [facility] | | [address] | | | - LABORATORY | | | | + + + + + | [facility] | [address] | [place], [place] | | | [facility] | | [address], [facility] | | | - LABORATORY | [...] 3.7 | 3.2 - 5.0 gm/dL | [facility] | | | | | [...] 35 (L)Comment: For | >60 mL/min/A | YANE [...] + | [facility] | [address] | [place] | [phone] | | [facility] | | [address] | | | - LABORATORY | | | | + + + + + | [facility] | [address] | [place] | | | [facility] | | [address] [place] [address] | | | - LABORATORY | | | | + + + + + documented in this encounter Visit Diagnoses + + | Diagnosis | + + | Chronic kidney disease, stage III (moderate) (HCC) Chronic kidney disease, Stage III | | (moderate) | + + | HTN CKD UNS W/CKD STAGE I THRU STAGE IV/UNS Unspecified hypertensive kidney disease | | with chronic kidney disease stage I through stage IV, or unspecified | + + documented in this encounter"
--- OUTSIDE RECORDS SUMMARY | ~2019-09-12 | XMS | Encounter Summary ---
Demographics + + + | Address | [address] | | | [place] [address] | + + + | Home Phone [...] | Author | [facility] | | | and [place] | + + + | Organization | [facility] | | [...] | | | | | [place] [address] | | + + + + + | Valentín Saleh | ECON | [address] | | | | | [place] [address] | | + + + + + | Roberto Carlos Lennon | LEVI | Unknown | | + + + + + Care Team Providers + +------+ + | Care Braid Maker Name | Role | Phone | [...] Description | +--------+--------+ + + + | 12/19/ | Refill | [facility] | Francois Pascal, | Medication Refill | | 2011 | | [facility] | [address] | | | | | [address] | [address] [place], | | | | | [place] | [place] [address] | | | | | [address] | [phone] | | | | | [phone] | | | +--------+--------+ + + + [...] Telephone Encounter - Diane Penn RN - 12/20/2011 2:51 PM PDTLAST REFILLED: ? Zolpidem LAST VISIT: 09/28/11 NEXT SCHEDULED: 12/27/11 Did not find on Epic or EMR medication list documented in this enc ounter Plan of Treatment +--------+---------+ + + + | Date | Type | Specialty | Care Team | Description | +--------+---------+ + + + | 12/06/ | Office | Cardiology | Stephenie Paul, | | | 2019 | Visit | | MD [address] | | | | | | [place], | | | | | | [place] [address] | | | | | | [phone] | | | | | | | | +--------+---------+ + + + documented as of this encounter Visit Diagnoses Not on filedocumented in this encounter"
--- OUTSIDE RECORDS SUMMARY | ~2019-09-12 | XMS | Encounter Summary ---
Demographics + + + | Address | [address] | | | [place] [address] | + + + | Home Phone [...] | Author | [facility] | | | and [place] | + + + | Organization | [facility] | [...] | | | | | [place] [address] | | + + + + + | Valentín Saleh | ECON | [address] | | | | | [place] [address] | | + + + + + | Roberto Carlos Lennon | LEVI | Unknown | | + + + + + Care Team Providers + +------+ + | Care Cryptographer Name | Role | Phone | + [...] | 09/23/ | Refill | [facility] [place] [facility] | Francois Pascal, | Medication Refill | | 2012 | | MEDICINE [facility] | [address] | | | | | [address] | [address] [place], | | | | | [place] | [place] [address] | | | | | [address] | [phone] | | | | | [phone] | | | +--------+--------+ + + + [...] | | | | | | [place] [address] | | | | | | [phone] | | | | | | | | +--------+---------+ + + + documented as of this encounter Visit Diagnoses Not on filedocumented in this encounter"
--- OUTSIDE RECORDS SUMMARY | ~2019-09-12 | XMS | Encounter Summary ---
Demographics + + + | Address | [address] | | | [place] [address] | + + + | Home Phone [...] | [facility] | | | and [place] | + + + | Organization | [facility] | | | | | [place] [address] | | + + + + + | Valentín Saleh | ECON | [address] | | | | | [place] [address] | | + + + + + | Roberto Carlos Lennon | LEVI | Unknown | | + + + + + Care Team Providers + +------+ + | Care Newspaper Manager Name | Role | Phone | [...] ON 04-30-16 NEEDS | | | | [place], | [place], | RESCHEDULED) | | | | [place] [address] | [place] [address] | | | | | [phone] | [phone] | | | | | | | [...] | | | | | | [place] [address] | | | | | | [phone] | | | | | | | | +--------+---------+ + + + documented as of this encounter Visit Diagnoses Not on filedocumented in this encounter"
--- OUTSIDE RECORDS SUMMARY | ~2019-09-12 | XMS | Encounter Summary ---
Demographics + + + | Address | [address] | | | [place] [address] | + + + | Home Phone [...] + | Author | [facility] | | | and [place] | + + + | Organization | [facility] | | | and [place] | + + + | Address | Unknown | + + + | Phone | Unavailable | + + + Support + + + + + | Name | Relationship | Address | Phone | + + + + + | iSgrid Lennon | ECON | [address] | | | | | [place] [address] | | + + + + + | [place] | ECON | [address] | | | | | [place] [address] | | + + + + + | Roberto Carlos Lennon | LEVI | Unknown | | + + + + + Care Team Providers + +------+ + | Care Data Operations Director Name | Role | Phone | [...] [address] | [address] [facility] | (MODERATE) (Primary | | | | [place], [place] | [address] [place], [place] | Dx) | | | | [address] | [address] | | | | | [phone] | | | +--------+ + + + [...] Zaynab Humphries RN - 03/05/2016 9:20 AM PSTPsC 04/05/16 documented in this encounter Plan of [...] | | | | | | [place] [address] | | | | | | [phone] | | | | | | | | +--------+---------+ + + + documented as of this encounter Results Protein/Creatinine Ratio, [...] | [address] | [place] | [phone] | | [facility] | | [address] | | | - LABORATORY | | | | + + + + + Parathyroid Hormone, Intact (04/01/2016 10:00 AM PST) + +-------+ + + + | Component | Value | Ref Range | Performed | Pathologist | | | | | At | Signature | + +-------+ + + + | PTH Intact | 27 | 12 - 88 pg/mL | YANE | | | | | | GATO [...] [address] | [place] | [phone] | | [facility] | | [address] | | | - LABORATORY | | [...] mL/min/1.73m2 | [facility] | | | [facility] | | | MEDICAL | | | [...] | ine Ratio | | | [facility] | | | | | [...] [facility] [facility] [address] | [place] | [phone] | | [facility] | | [address] | | | - LABORATORY | | | | + + + + + documented in this encounter Visit Diagnoses + + | Diagnosis | + + | CHRONIC KIDNEY DISEASE STAGE III (MODERATE) - Primary Chronic kidney disease, Stage | | III (moderate) | + + documented in this encounter"
--- OUTSIDE RECORDS SUMMARY | ~2019-09-12 | XMS | Encounter Summary ---
Demographics + + + | Address | [address] | | | [place] [address] | + + + | Home Phone [...] Author | [facility] | | | and [place] | + + + | Organization | [facility] | [...] | | | | | [place] [address] | | + + + + + | Valentín Saleh | ECON | [address] | | | | | [place] [address] | | + + + + + | Roberto Carlos Lennon | LEVI | Unknown | | + + + + + Care Team Providers + +------+ + | Care Communications Maintainer Name | Role | Phone | + +------+ + | Francois Pascal MD | PCP | | + +------+ + Reason for Visit + +--------+ + | Reason | Onset | Comments | | | Date | | + +--------+ + | Medication Refill | 10/31/ | | | | 2018 | | + +--------+ + Encounter Details +--------+--------+ + + + | Date | Type | Department | Care Team | Description | +--------+--------+ + + + | 10/31/ | Refill | [facility] [place] [facility] | Francois Pascal, | Medication Refill | | 2018 | | [facility] | [address] | | | | | [address] | [address] [place], | | | | | [place] | [place] [address] | | | | | [address] | [phone] | | | | | [phone] | | | +--------+--------+ + + + [...] Telephone Encounter - Yamileth Bah RN - 10/31/2018 4:47 PM PDTReceived fax from [employer] regarding test strips. Caregiver says patient is testing three times daily. R equest new rx be sent to [facility] in [place] for Medicare Part B billing purposes. No notes that patient should be checking three times daily. Orders from Renee Giang from s are still to check twice daily. Rx for test strips with same instructions sent to [facility] [place]. documented in this encounter Plan of Treatment +--------+---------+ + + + | Date | Type | Specialty | Care Team | Description | +--------+---------+ + + + | 12/06/ | Office | Cardiology | Stephenie Paul, | | | 2019 | Visit | | [address] | | | | | | [place], | | | | | | [place] [address] | | | | | | [phone] | | | | | | | [...]
--- OUTSIDE RECORDS SUMMARY | ~2019-09-12 | XMS | Encounter Summary ---
Demographics + + + | Address | [address] | | | [place] [address] | + + + | Home Phone [...] Author | [facility] | | | and Clarkeana | + + + | Organization | [facility] | | | and [...] | | | | | [place] [address] | | + + + + + | Valentín Saleh | ECON | [address] | | | | | [place] [address] | | + + + + + | Roberto Carlos Lennon | LEVI | Unknown | | + + + + + Care Team Providers + +------+ + | Care Debubblizer Name | Role | Phone | + [...] Refill | | 2013 | | [facility]IC[facility] [place] | [address] | | | | | [address] | [address] [place], | | | | | [place] | [place] [address] | | | | | [address] | [phone] | | | | | [phone] | | | +--------+--------+ + + + [...] | | | | | | [place] [address] | | | | | | [phone] | | | | | | | | +--------+---------+ + + + documented as of this encounter Visit Diagnoses Not on filedocumented in this encounter"
--- OUTSIDE RECORDS SUMMARY | ~2019-09-12 | XMS | Encounter Summary ---
Demographics + + + | Address | [address] | | | [place] [address] | + + + | Home Phone [...] | Author | [facility] | | | and Clarkeana | + + + | Organization | [facility] [...] | | | | | [place] [address] | | + + + + + | Valentín Saleh | ECON | [address] | | | | | [place] [address] | | + + + + + | Roberto Carlos Lennon | LEVI | Unknown | | + + + + + Care Team Providers + +------+ + | Care Social Secretary Name | Role | Phone | [...] | Francois Tello MD | [address] | | | | | stenosis, | [address] | [place], | | | | | bilateral | [address] | [place] | | | | | Procedures | [place] | [address] | | | | | MRI | [place] | Phone: | | | | | Angiogram | [address] | [phone] | | | | | Neck w wo | Phone: | Fax: | | | | | Contrast | [phone] | [phone] | | | | | | Fax: | | | | | | | [phone] | | +--------+--------+ + + + + Encounter Details +--------+ + + + + | Date | Type | Department | Care Team | Description | +--------+ + + + + | 11/26/ | Orders Only | [facility] [place] [facility] | Francois Pascal, | Carotid stenosis, | | 2015 | | MEDICINE [address] | [address] | bilateral (Primary | | | | AVE [place], | [address] [place], | Dx) | | | | [place] [address] | [place] [address] | | | | | [phone] | [phone] | | | | | | | [...] 12/06/ | Office | Cardiology | Stephenie Palu, | | | 2019 | Visit | | [address] [facility] | | | | | | [place], | | | | | | [place] [address] | | | | | | [phone] | | | | | | | | +--------+---------+ + + + documented as of this encounter Results MRI Angiogram Neck w wo Contrast (12/05/2014 9:37 AM PDT) + + | Specimen | + + | | + + + + + | Narrative | Performed At | + + + | MRI ANGIOGRAM NECK W WO CONTRAST 12/05/2014 9:11 AM HISTORY: | [facility] | | Carotid stenosis. COMPARISON: None. PROTOCOL: MRA of the neck | . [facility] | | was performed with axial 3-D kbmz-kv-tahekj technique without | [facility] | | [...] | | | on the axial 3-D ejqh-cb-rvstbk images due to the small size. The [...] | | was performed with axial 3-D frqi-yg-xkncpe techniquewithout contrast and coronal | | dynamic [...] seen on the axial 3-D | | lrfp-xz-cerqrygihzmq due to the small size. The left [...] not well seen on the axial 3-D pjxi-ht-trkcsj | |images due to the small size. [...] | [facility] | [address] | [place] | [phone] | | [facility] | | [address] | | | - IMAGING | | | | + + + + + documented in this encounter Visit Diagnoses + + | Diagnosis | + + | Carotid stenosis, bilateral - Primary Occlusion and stenosis of multiple and | | bilateral precerebral arteries without mention of cerebral infarction | + + documented in this encounter"
--- OUTSIDE RECORDS SUMMARY | ~2019-09-12 | XMS | Encounter Summary ---
Demographics + + + | Address | [address] | | | [place] [address] | + + + | Home Phone [...] [facility] | | | and Clarkeana | + + + | Organization | [facility] [...] | | | | | [place] [address] | | + + + + + | Valentín Saleh | ECON | [address] | | | | | [place] [address] | | + + + + + | Roberto Carlos Lennon | LEVI | Unknown | | + + + + + Care Team Providers + +------+ + | Care Food Safety Coordinator Name | Role | Phone | + +------+ + | Francois Pascal MD | PCP | | + +------+ + Encounter Details +--------+ + + + + | Date | Type | Department | Care Team | Description | +--------+ + + + + | 11/14/ | Hospital | [facility] | Francois Pascal, | ARTHRITIS, CHRONIC | | 2013 | Encounter | MED CTR LABORATORY | [address] | | | | | [address] [place] | [address] [place], | | | | | [place], [place] | [place] [address] | | | | | [address] | [phone] | | | | | [phone] | | | +--------+ + + + [...] + documented as of this encounter Progress Barbara Bravo - 11/28/2012 10:00 AM PDT Quick Note: Patient had appointment on 11/27 to discuss labs oFrancois chakraborty MD - 11/20/2012 5:00 PM PDT Quick Note: Ok for ma [...] | | | | | | [place] [address] | | | | | | [phone] | | | | | | | | +--------+---------+ + + + documented as of this encounter Procedures + +--------+ + + + | Procedure Name | Priori | Date/Time | Associated Diagnosis | Comments | | | ty | | | | + +--------+ + + + | CBC WITH | Routin | 11/14/2012 | ARTHRITIS, CHRONIC | Results for this | | DIFFERENTIAL | e | 2:20 PM | | procedure are in the | | | | PDT | | results section. | + +--------+ + + + | COMPREHENSIVE | Routin | 11/14/2012 | ARTHRITIS, CHRONIC | Results for this | | METABOLIC PANEL | e | 2:20 PM | | procedure are in the | | | | PDT | | results section. | + +--------+ + + + documented in this encounter Results Comprehensive Metabolic Panel (11/14/2012 2:20 PM PDT) + + + + + + | Component | Value | Ref Range | Performed | Pathologist | | | | | At | Signature | + + + + + + | Glucose | 197 (H) | 70 - 109 mg/dL | [facility] [...] 1.73 (H) | 0.60 - 1.30 | [facility] | | | | | mg/dL | [facility] | | | | | [facility]ICAL | | | | | | CENTER - | | | | | | LABORATORY | | + + + + + + | Estimated | 28 (L)Comment: For | >60 mL/min/A | [facility] | | | GFR | -Americans, | | [facility] | | | | please multiply [...] | 17.3 | 12 - 20 | [facility] | | | ine Ratio | | | [facility] | | | | | MEDICAL | | | | | | CENTER - | | | | | | LABORATORY | | + + + + + + | Na | 136 | 136 - 149 mEq/L | [facility] [...] | 12.8 | 6.0 - 17.0 | [facility] | | | | | [...] [address] | [place] | [phone] | | [facility] | | [address] | | | - LABORATORY | | | | + + + + + | [facility] | [address] | [place] | | | [facility] | | [address], [facility] | | | - [...] | | Cells | | | [facility] | | | | | | MEDICAL [...] | + + + + + | [facility] | [address] | [place], [place] | [phone] | | [facility] | | [address] | | | - LABORATORY | | | | + + + + + | [facility] | [address] | [place], [place] | | | [facility] | | [address] | | | - LABORATORY | | | | + + + + + documented in this encounter Visit Diagnoses + + | Diagnosis | + + | ARTHRITIS, CHRONIC Arthropathy, unspecified, site unspecified | + + documented in this encounter"
--- OUTSIDE RECORDS SUMMARY | ~2019-09-12 | XMS | Encounter Summary ---
Demographics + + + | Address | [address] | | | [place] [address] | + + + | Home Phone [...] | Author | [facility] | | | and Clarkeana | + + + | Organization | [facility] [...] | | | | | [place] [address] | | + + + + + | Valentín Saleh | ECON | [id number] | | | | | [place] [address] | | + + + + + | Roberto Carlos Lennon | LEVI | Unknown | | + + + + + Care Team Providers + +------+ + | Care Travel Pta Name | Role | Phone | + [...] Description | +--------+--------+ + + + | 09/14/ | Refill | [facility] [place] [facility] | Francois Pascal, | Medication Refill | | 2015 | | MEDICINE [facility] | [address] | | | | | [address] [place], | [address] [place], | | | | | [place] [address] | [place] [address] | | | | | [phone] | [phone] | | | | | | | [...] | | | | | | [place] [address] | | | | | | [phone] | | | | | | | | +--------+---------+ + + + documented as of this encounter Visit Diagnoses + + | Diagnosis | + + | Type 2 diabetes mellitus with hyperglycemia (HCC) - Primary Type II or unspecified | | type diabetes mellitus without mention of complication, not stated as uncontrolled | + + documented in this encounter"
--- OUTSIDE RECORDS SUMMARY | ~2019-09-12 | XMS | Encounter Summary ---
Demographics + + + | Address | [address] | | | [place] [address] | + + + | Home Phone [...] + | Author | [facility] | | | and [place]ana | + + + | Organization | [facility] | [...] | | | | | [place] [address] | | + + + + + | Valentín Saleh | ECON | [phone] | | | | | [place] [address] | | + + + + + | Roberto Carlos Lennon | LEVI | Jeyson | | + + + + + Care Team Providers + +------+ + | Care Slice Cutting Machine Operator Helper Name | Role | Phone | + +------+ + PCP | Unavailable | + +------+ + Encounter Details +--------+ + + + + | Date | Type | Department | Care Team | Description | +--------+ + + + + | 06/16/ | Hospital | [facility] | | | | 1996 - | Encounter | MED CTR ICU [address] | | | | | | [address] [place], | | | | 06/27/ | | [place] [address] | | | | 1995 | | [phone] | | | +--------+ + + + [...] | | | | | | [place] [address] | | | | | | [phone] | | | | | | | | +--------+---------+ + + + documented as of this encounter Visit Diagnoses Not on filedocumented in this encounter"
--- OUTSIDE RECORDS SUMMARY | ~2019-09-12 | XMS | Encounter Summary ---
Demographics + + + | Address | [address] | | | [place] [address] | + + + | Home Phone [...] | Author | [facility] | | | and Clarkeana | + + + | Organization | [facility] | | | and [...] | | | | | [place] [address] | | + + + + + | Valentín Saleh | ECON | [phone] | | | | | [place] [address] | | + + + + + | Roberto Carlos Lennon | LEVI | Unknown | | + + + + + Care Team Providers + +------+ + | Care Medical Orderly Name | Role | Phone | + [...] | (MODERATE) (Primary | | | | [place], [place] | [address] [place], [place] | Dx); Vitamin D | | | | [address] | [address] | deficiency | | | | [phone] | | | +--------+ + + + [...] | | | | | | [place] [address] | | | | | | [phone] | | | | | | | [...] + | [facility] | [address] | [place], [place] | [phone] | | [facility] | | [address] | | | - LABORATORY | | | | + + + + + | [facility] | [address] | [place], [place] | | | [facility] | | [address] [place] [address] | | | - LABORATORY | | [...] + | [facility] | [address] | [place] | [phone] | | [facility] | | [address] | | | - LABORATORY | | | | + + + + + | [facility] | [address] | [place] | | | [facility] | | [address] | | | - LABORATORY | [...] + | [facility] | [address] | [place], [place] | [phone] | | [facility] | | [address] | | | - LABORATORY | | | | + + + + + | [facility] | [address] | [place], [place] | | | [facility] | | [address] [place] [address] | | | - LABORATORY | | [...] 1.43 (H) | 0.60 - 1.30 | [facility] | | | | | [...] | | MEDICAL | | | | mL/min/1.99v4Odmo than | | CENTER - | | [...] [address] | [place] | [phone] | | [facility] | | [address] | | | - LABORATORY | | | | + + + + + | [facility] | [address] | [place], [place] | | | [facility] | | [address], [facility] | | | - [...]
--- OUTSIDE RECORDS SUMMARY | ~2019-09-12 | XMS | Encounter Summary ---
Demographics + + + | Address | [address] | | | [place] [address] | + + + | Home Phone [...] Author | [facility] | | | and Clarkeana | + + + | Organization | [facility] | [...] | | | | | [place] [address] | | + + + + + | Valentín Saleh | ECON | [phone] | | | | | [place] [address] | | + + + + + | Roberto Carlos Lennon | LEVI | Unknown | | + + + + + Care Team Providers + +------+ + | Care Sales Representative Wire Rope Name | Role | Phone | + [...] [address] | [address] [facility] | (MODERATE) (Primary | | | | [place], [place] | [address] [place], [place] | Dx); Vitamin D | | | | [address] | [address] | deficiency; | | | | [phone] | | HYPERTENSION NEC | +--------+ + [...] for nephrology appt on 05/28/[address] [facility] documented in thi s encounter Plan of [...] | | | | | | [place] [address] | | | | | | [phone] | | | | | | | [...] [address] | [place] | [phone] | | [facility] | | [address] | | | - LABORATORY | | | | + + + + + | [facility] | [address] | [place], [place] | | | [facility] | | [address] | | | [...] + | [facility] | [address] | [place] | [phone] | | [facility] | | [address] | | | - LABORATORY | | | | + + + + + | [facility] | [address] | [place], [place] | | | [facility] | | [address] [place] [address] | | | - LABORATORY | | [...] | 1.07 | 0.60 - 1.30 | [place] | | | | | mg/dL | [facility] | | | | | | MEDICAL | | | | | | CENTER - | | | | | | LABORATORY | | + + + + + + | eGFR if not | 49 (L)Comment: | >=60 | [place] | | | | GLOMERULAR FILTRATION | mL/min/1.73m2 | [facility] | | | [place] | RATE,ESTIMATED | | MEDICAL | | | | mL/min/1.22d2Ubis than | | CENTER - | | [...] + + | Performing | Address | [facility] | Phone Number | | Organization | | | | + + + + + | [facility] | [address] | [place] | [phone] | | [facility] | | [address] | | | - LABORATORY | | | | + + + + + | [facility] | [address] | [place] | | | [facility] | | [address], [facility] | | | - LABORATORY | [...]
--- OUTSIDE RECORDS SUMMARY | ~2019-09-12 | XMS | Encounter Summary ---
Demographics + + + | Address | [address] | | | [place] [address] | + + + | Home Phone [...] | Author | [facility] | | | and Clarkeana | + + + | Organization | [facility] | [...] | | | | | [place] [address] | | + + + + + | Valentín Saleh | ECON | [id number] | | | | | [place] [address] | | + + + + + | Roberto Carlos Lennon | LEVI | Unknown | | + + + + + Care Team Providers + +------+ + | Care Summer Intern Name | Role | Phone | + +------+ + | Francois Pascal MD | PCP | | + +------+ + Encounter Details +--------+ + + + + | Date | Type | Department | Care Team | Description | +--------+ + + + + | 05/08/ | Orders Only | [facility] [place] | [place], | CHRONIC KIDNEY | | 2016 | | NEPHROLOGY [address] | [address] | DISEASE STAGE III | | | | [address] | [address] [facility] [facility] | (MODERATE) (Primary | | | | [place], [place] | [address] [place], [place] | Dx); Vitamin D | | | | [address] | [address] | deficiency | | | | [phone] | | | +--------+ + + + [...] | | | | | | [place] [address] | | | | | | [phone] | | | | | | | | +--------+---------+ + + + documented as of this encounter Results Protein/Creatinine Ratio, Urine (06/12/2015 10:00 AM PDT) + + + + + + | Component | Value | Ref Range | Performed | Pathologist | | | | | At | Signature | + + + + + + | Protein, | 40 (H) | <10 mg/dL | [facility] | | | Urine | | | [facility] | | | | | | MEDICAL | | | | | | CENTER - | | | | | | LABORATORY | | + + + + + + | Creatinine, | 54 | mg/dL | [facility] | | | Urine, | | | [facility] | | | Random | | | MEDICAL | | | | | | CENTER - | | | | | | LABORATORY | | + + + + + + | PRO/CREA | 0.74 (H) | <0.20 mg/mg | [facility] | [...] [address] | [place] | [phone] | | [facility] | | [address] | | | - LABORATORY | | | | + + + + + Vitamin D, 25-Hydroxy (06/03/2015 12:43 PM PDT) [...] [address] | [place] | [phone] | | [facility] | | [address] | | | - LABORATORY | | [...] | | | | | mL/min/1.73m2 | [facility] | | | [place] | | | MEDICAL | | | [...] [address] | [place] | [phone] | | [facility] | | [address] | | | - LABORATORY | | [...]
--- OUTSIDE RECORDS SUMMARY | ~2019-09-12 | XMS | Encounter Summary ---
Demographics + + + | Address | [address] | | | [place] [address] | + + + | Home Phone [...] | | | | | [place] [address] | | + + + + + | Valentín Saleh | ECON | [address] | | | | | [place] [address] | | + + + + + | Roberto Carlos Lennon | LEVI | Unknown | | + + + + + Care Team Providers + +------+ + | Care Combination Machine Tool Setter Name | Role | Phone | [...] Visit | CARDIOLOGY [address] | Charla, COMPRESSOR TECHNICIAN [address] | artery, unspecified | | | | [place], | [place], | laterality (Primary | | | | [place] [address] | [place] [address] | Dx); Amaurosis | | | | [phone] | [phone] | fugax; Coronary | | | | | | artery disease | | | | | | involving [place] | | | | | | coronary artery of | | | | | | [place] heart without | | | | | | angina pectoris; | | | | | | Congestive heart | | | | | | failure, unspecified | | | | | | HF chronicity, | | | | | | unspecified heart | | | | | | failure type ([facility]); | | | | | | Atrial fibrillation, | | | | | | unspecified type | | | | | | ([facility]); Essential | | | | | | [...] very active. She is now living in [facility] and she is not ambulating at all. [...] renal complications Glossitis Coronary artery disease involving [place] coronary artery of [place] heart without angina pectoris Hyperlipidemia, mixed AMI [...] rectally Daily as needed for Constipation. 0 Fbihtny-Xxwionnum-Xjzstux D (CALCIUM 500 PO) Take 1 tablet [...] RESULTS reviewed during visit today primarily from [facility]: LIPID Lab Results Component Value Date [...] Extensive history of coronary artery disease involving [place] coronary artery of [place] heart without angina pectoris: A. Status post [...] at all. She is living in a long term.There is no signs and symptoms of overt [...] this chart may have been created with [employer] voice recognition software. Occasi onal wrong-word or [...] 2019 | Visit | | MD [address] | | | | | | [place], | | | | | | [place] [address] | | | | | | [phone] | | | | | | | [...] involving | | | | | | [place] coronary | | | | | | artery of [place] | | | | | | heart [...] | | | | | GARCIA [place]AM[place] ([id number]) on | | | | | | [...] + + | Coronary artery disease involving [place] coronary artery of [place] heart without | | angina pectoris | + + | Congestive heart failure, unspecified HF chronicity, unspecified heart failure type | | (HCC) | + + | Atrial fibrillation, unspecified type (HCC) | + + | Essential hypertension with goal blood pressure less than 130/80 | + + documented in this encounter
--- OUTSIDE RECORDS SUMMARY | ~2019-09-12 | XMS | Encounter Summary ---
Demographics + + + | Address | [address] | | | [place] [address] | + + + | Home Phone [...] | Author | [facility] | | | and Clarkeana | + + + | Organization | [facility] | | | and [...] | | | | | [place] [address] | | + + + + + | Valentín Saleh | ECON | [address] | | | | | [place] [address] | | + + + + + | Roberto Carlos Lennon | LEVI | Unknown | | + + + + + Care Team Providers + +------+ + | Care Zanjero Name | Role | Phone | + [...] Description | +--------+--------+ + + + | 08/10/ | Refill | [facility] [place] [facility] | Francois Pascal, | Medication Refill | | 2015 | | MEDICINE [facility] | [address] | | | | | [address]VE [place], | [address] [place], | | | | | [place] [address] | [place] [address] | | | | | [phone] | [phone] | | | | | | | [...] | | | | | | [place] [address] | | | | | | [phone] | | | | | | | | +--------+---------+ + + + documented as of this encounter Visit Diagnoses Not on filedocumented in this encounter"
--- OUTSIDE RECORDS SUMMARY | ~2019-09-12 | XMS | Encounter Summary ---
Demographics + + + | Address | [address] | | | [place] [address] | + + + | Home Phone [...] + | Author | [facility] | | | and Clarkeana | + + + | Organization | [facility] | | [...] | | | | | [place] [address] | | + + + + + | Valentín Saleh | ECON | [phone] | | | | | [place] [address] | | + + + + + | Roberto Carlos Lennon | LEVI | Unknown | | + + + + + Care Team Providers + +------+ + | Care Presser Cotton Ginning Name | Role | Phone | + +------+ + | Francois Pascal MD | PCP | | + +------+ + Encounter Details +--------+ + + + + | Date | Type | Department | Care Team | Description | +--------+ + + + + | 06/02/ | [facility] | [facility] | Francois Capone, | | | 2016 | Encounter | MED CTR LABORATORY | SUHAS Martinez has | | | | | [address] | retired. | | | | | [place] | | | | | | [address] | | | | | | [phone] | | | +--------+ + + + [...] | | | hyperglycemia ([facility]) | | | [...] | | | mellitus) ([facility]) | | | [...] | | | | | | [place] [address] | | | | | | [phone] | | | | | | | | +--------+---------+ + + + documented as of this encounter Visit Diagnoses Not on filedocumented in this encounter"
--- OUTSIDE RECORDS SUMMARY | ~2019-09-12 | XMS | Encounter Summary ---
Demographics + + + | Address | [address] | | | [place] [address] | + + + | Home Phone [...] Author | [facility] | | | and [place] | + + + | Organization | [facility] [...] | | | | | [place] [address] | | + + + + + | Valentín Saleh | ECON | [phone] | | | | | [place] [address] | | + + + + + | Roberto Carlos Lennon | LEVI | Unknown | | + + + + + Care Team Providers + +------+ + | Care Senior Advisor Name | Role | Phone | + +------+ + | Francois Pascal MD | PCP | | + +------+ + Reason for Visit +--------+--------+ + | Reason | Onset | Comments | | | Date | | +--------+--------+ + | LABS | 08/19/ | | | | 2016 | | +--------+--------+ + Encounter Details +--------+ + + + + | Date | Type | Department | Care Team | Description | +--------+ + + + + | 08/19/ | Telephone | [facility] | Francois Pascal, | LABS | | 2016 | | MEDICINE [address] | [address] | | | | | [address]VE [place], | [address] [place], | | | | | [place] [address] | [place] [address] | | | | | [phone] | [phone] | | | | | | | [...] Telephone Encounter - Leanne Johnson RN - 08/19/2016 11:54 AM PDTUA orderedElectronical ly signed by Laenne Johnson RN at 08/19/2016 11:55 AM PDTdocumented in this encounter Plan of [...] | | | | | | [place] [address] | | | | | | [phone] | | | | | | | [...] + + + + | Clarity, | Hazy (A) | Clear | [facility] [...] - 1.030 | [facility] | | | [place], | | | [facility] | | [...] + | [address] | [address] | [place], [place] | [phone] | | [facility] | | [address] | | | - LABORATORY | | | | + + + + + documented in this encounter Visit Diagnoses + + | Diagnosis | + + | Urinary tract infection without hematuria, site unspecified - Primary | + + documented in this encounter"
--- OUTSIDE RECORDS SUMMARY | ~2019-09-12 | XMS | Encounter Summary ---
Demographics + + + | Address | [address] | | | [place] [address] | + + + | Home Phone [...] | Author | [facility] | | | and [place] | + + + | Organization | [facility] | | | [...] | | | | | [place] [address] | | + + + + + | Valentín Saleh | ECON | [phone] | | | | | [place] [address] | | + + + + + | Roberto Carlos Lennon | LEVI | [place] | | + + + + + Care Team Providers + +------+ + | Care Hotel Maintenance Engineer Name | Role | Phone | + +------+ + PCP | Unavailable | + +------+ + Encounter Details +--------+ + + + + | Date | Type | Department | Care Team | Description | +--------+ + + + + | 11/13/ | Hospital | [facility] | | | | 2005 | Encounter | MED CTR LABORATORY | | | | | | [address] | | | | | | [place] | | | | | | [address] | | | | | | [phone] | | | +--------+ + + + [...] | | | | | | [place] [address] | | | | | | [phone] | | | | | | | | +--------+---------+ + + + documented as of this encounter Visit Diagnoses Not on filedocumented in this encounter"
--- OUTSIDE RECORDS SUMMARY | ~2019-09-12 | XMS | Encounter Summary ---
Demographics + + + | Address | [address] | | | [place] [address] | + + + | Home Phone [...] | Author | [facility] | | | and [place] | + + + | Organization | [facility] | | | and [place] | + + + | Address | Unknown | + + + | Phone | Unavailable | + + + Support + + + + + | Name | Relationship | Address | Phone | + + + + + | Sigrid Lennon | ECON | [address] | | | | | [place] [address] | | + + + + + | Valentín Saleh | ECON | [phone] | | | | | [place] [address] | | + + + + + | Roberto Carlos Lennon | LEVI | [place] | | + + + + + Care Team Providers + +------+ + | Care Field Sales Associate Name | Role | Phone | + +------+ + PCP | Unavailable | + +------+ + Encounter Details +--------+ + + + + | Date | Type | Department | Care Team | Description | +--------+ + + + + | 01/18/ | Hospital | [facility] | Stephenie Paul, | | | 2002 | Encounter | MED CTR GENERIC OP | MD [address] | | | | | CONV DEPT [address] [place], | | | | | [place], | [place] [address] | | | | | [place] [address] | [phone] | | | | | [phone] | | | +--------+ + + + [...] | | | | | | [place] [address] | | | | | | [phone] | | | | | | | | +--------+---------+ + + + documented as of this encounter Visit Diagnoses Not on filedocumented in this encounter"
--- OUTSIDE RECORDS SUMMARY | ~2019-09-12 | XMS | Encounter Summary ---
Demographics + + + | Address | [address] | | | [place] [address] | + + + | Home Phone [...] Author | [facility] | | | and [place] | + + + | Organization | [facility] | | | [...] | | | | | [place] [address] | | + + + + + | Valentín Saleh | ECON | [address] | | | | | [place] [address] | | + + + + + | Roberto Carlos Lennon | LEVI | Unknown | | + + + + + Care Team Providers + +------+ + | Care Military Cook Name | Role | Phone | [...] Left ankle | [place], | [address] | | | | | pain | Glenn Richards MD | [place], | | | | | Procedures | [address] | [place] | | | | | [place] | [facility] | [address] | | | | | ARTHROCENTES | [place], [place] | Phone: | | | | | [place] | [address] | [phone] | | | | | ASPIR&/INJ | Phone: | Fax: | | | | | INTERM | [phone] | [phone] | | | | | JT/BURS W/O | Fax: | | | | | | [place] | [phone] | | | | | | TRIAMCINOLON | | | | | | | E ACET INJ | | | | | | | NOS, 10 MG | | | | | | | [place] | | | | | | | [...] + + | 08/02/ | Hospital | [facility] | Glenn Miramontes | 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 | Encounter | MED CTR XRAY [address] | T, [address] | osteoarthritis of | | | | [place] | [place], [place] | left ankle (Primary | | | | [place] [address] | [address] | Dx); Left ankle pain | | | | [phone] | | | | | | | Nuisance Animal Damage Control Agent, [facility] | | | | | [...] | | | | | | [place] [address] | | | | | | [phone] | | | | | | | [...] ANKLE PAIN AND POST-TRAUMATIC ARTHRITIS Alyson | [facility] | | Autumn Lennon presents to the fluoroscopy suite for a [facility] | | fluoroscopically-guided left intraarticular ankle injection [...] [address] | [place] | [phone] | | [facility] | | [address] | | | - IMAGING | | [...]
--- OUTSIDE RECORDS SUMMARY | ~2019-09-12 | XMS | Encounter Summary ---
Demographics + + + | Address | [address] | | | [place] [address] | + + + | Home Phone [...] | [facility] | | | and [place] | + + + | Organization | [facility] [...] | | | | | [place] [address] | | + + + + + | Valentín Saleh | ECON | [phone] | | | | | [place] [address] | | + + + + + | Roberto Carlos Lennon | LEVI | Unknown | | + + + + + Care Team Providers + +------+ + | Care Peoplesoft Programmer Name | Role | Phone | [...] Refill | | 2013 | | MEDICINE [place] | [address] | | | | | [address] | [address] [place], | | | | | [place] | [place] [address] | | | | | [address] | [phone] | | | | | [phone] | | | +--------+--------+ + + + [...] | | | | | | [place] [id number] | | | | | | [phone] | | | | | | | | +--------+---------+ + + + documented as of this encounter Visit Diagnoses Not on filedocumented in this encounter"
--- OUTSIDE RECORDS SUMMARY | ~2019-09-12 | XMS | Encounter Summary ---
Demographics + + + | Address | [address] | | | [place] [address] | + + + | Home Phone [...] Author | [facility] | | | and [place] | + + + | Organization | [facility] [...] | | | | | [place] [address] | | + + + + + | Valentín Saleh | ECON | [address] | | | | | [place] [address] | | + + + + + | Roberto Carlos Lennon | LEVI | [place] | | + + + + + Care Team Providers + +------+ + | Care Spool Sander Name | Role | Phone | + +------+ + PCP | Unavailable | + +------+ + Encounter Details +--------+ + + + + | Date | Type | Department | Care Team | Description | +--------+ + + + + | 04/10/ | Hospital | [facility] | Jason Hernandez, | | | 2009 | Encounter | MED CTR XRAY [address] | PA-C [address] | | | | | [place] | [address] [place] | | | | | [place] [address] | [place] [address] | | | | | [phone] | [phone] | | | | | | | [...] | | | | | | [place] [address] | | | | | | [phone] | | | | | | | | +--------+---------+ + + + documented as of this encounter Visit Diagnoses Not on filedocumented in this encounter"
--- OUTSIDE RECORDS SUMMARY | ~2019-09-12 | XMS | Encounter Summary ---
Demographics + + + | Address | [address] | | | [place] [address] | + + + | Home Phone [...] | Author | [facility] | | | and [place] | + + + | Organization | [facility] [...] | | | | | [place] [address] | | + + + + + | Valentín Saleh | ECON | [phone] | | | | | [place] [address] | | + + + + + | Roberto Carlos Lennon | LEVI | [place] | | + + + + + Care Team Providers + +------+ + | Care Voltage Tester Name | Role | Phone | + +------+ + PCP | Unavailable | + +------+ + Encounter Details +--------+ + + + + | Date | Type | Department | Care Team | Description | +--------+ + + + + | 01/14/ | Hospital | [facility] | Francois Pascal, | | | 2009 | Encounter | MED CTR LABORATORY | [address] | | | | | [address] [place] | [address] [place], | | | | | [place] | [place] [address] | | | | | [address] | [phone] | | | | | [phone] | | | +--------+ + + + [...] | | | | | | [place] [address] | | | | | | [phone] | | | | | | | | +--------+---------+ + + + documented as of this encounter Visit Diagnoses Not on filedocumented in this encounter"
--- OUTSIDE RECORDS SUMMARY | ~2019-09-12 | XMS | Encounter Summary ---
Demographics + + + | Address | [address] | | | [place] [address] | + + + | Home Phone [...] + | Author | [facility] | | | and [place] | + + + | Organization | [facility] [...] | | | | | [place] [address] | | + + + + + | Valentín Saleh | ECON | [phone] | | | | | [place] [address] | | + + + + + | Roberto Carlos Lennon | LEVI | Unknown | | + + + + + Care Team Providers + +------+ + | Care Junior Architect Name | Role | Phone | [...] | 11/13/ | Refill | [facility] | Francois Pascal, | Medication Refill | | 2012 | | MEDICINE [place] | [address] | | | | | [address] | [address] [place], | | | | | [place] | [place] [address] | | | | | [address] | [phone] | | | | | [phone] | | | +--------+--------+ + + + [...] Telephone Encounter - Nalini Hollins RN - 11/13/2012 11:22 AM PDTPatient needs labs dra [place] before methotrexate can be filled.Electronically signed by Nalini Hollins RN at 2012 11:25 AM PDTdocumented in this encounter Plan of [...] | | | | | | [place] [address] | | | | | | [phone] | | | | | | | | +--------+---------+ + + + documented as of this encounter Visit Diagnoses + + | Diagnosis | + + | ARTHRITIS, CHRONIC - Primary Arthropathy, unspecified, site unspecified | + + documented in this encounter"
--- OUTSIDE RECORDS SUMMARY | ~2019-09-12 | XMS | Encounter Summary ---
Demographics + + + | Address | [address] | | | [place] [address] | + + + | Home Phone [...] | [facility] | | | and [place] | + + + | Organization | [facility] | | | [...] | | | | | [place] [address] | | + + + + + | Valentín Saleh | ECON | [address] | | | | | [place] [address] | | + + + + + | Roberto Carlos Lennon | LEVI | [place] | | + + + + + Care Team Providers + +------+ + | Care Vp Marketing Name | Role | Phone | + +------+ + PCP | Unavailable | + +------+ + Encounter Details +--------+ + + + + | Date | Type | Department | Care Team | Description | +--------+ + + + + | 04/28/ | Hospital | [facility] | Jason Hernandez, | | | 2010 | Encounter | MED CTR XRAY [address] | PA-C [address] | | | | | [place] | [address] [place] | | | | | [place] [address] | [place] [address] | | | | | [phone] | [phone] | | | | | | | [...] | | | | | | [place] [address] | | | | | | [phone] | | | | | | | | +--------+---------+ + + + documented as of this encounter Visit Diagnoses Not on filedocumented in this encounter"
--- OUTSIDE RECORDS SUMMARY | ~2019-09-12 | XMS | Encounter Summary ---
Demographics + + + | Address | [address] | | | [place] [address] | + + + | Home Phone [...] [facility] | | | and [place] | + + + | Organization | [facility] | [...] | | | | | [place] [address] | | + + + + + | Valentín Saleh | ECON | [address] | | | | | [place] [address] | | + + + + + | Roberto Carlos Lennon | LEVI | Unknown | | + + + + + Care Team Providers + +------+ + | Care R D Engineer Name | Role | Phone | + +------+ + | Francois Pascal MD | PCP | | + +------+ + Encounter Details +--------+ + + + + | Date | Type | Department | Care Team | Description | +--------+ + + + + | 11/13/ | Orders Only | [facility] [place] | [place], | CHRONIC KIDNEY | | 2015 | | NEPHROLOGY [address] | [address] | DISEASE STAGE III | | | | [address] | [address] [facility] | (MODERATE) (Primary | | | | [place], [place] | [address] [place], [place] | Dx) | | | | [address] | [address] | | | | | [phone] | | | +--------+ + + + [...] | | | | | | [place] [address] | | | | | | [phone] | | | | | | | | +--------+---------+ + + + documented as of this encounter Results Parathyroid Hormone, Intact (12/02/2014 9:10 AM PDT) + +-------+ + + + | Component | Value | Ref Range | Performed | Pathologist | | | | | At | Signature | + +-------+ + + + | PTH Intact | 43 | 12 - 88 pg/mL | [facility] | | | | | [...] [address] | [place] | [phone] | | [facility] | | [address] | | | - LABORATORY | | [...] mL/min/1.73m2 | [facility] | | | [place] | RATE,ESTIMATED | | MEDICAL | | | | mL/min/1.92c5Lusp than | | CENTER - | | [...] 3.3 | 3.2 - 5.0 g/dL | [facility] [...] [address] | [place] | [phone] | | [facility] | | [address] | | | - LABORATORY | | | | + + + + + documented in this encounter Visit Diagnoses + + | Diagnosis | + + | CHRONIC KIDNEY DISEASE STAGE III (MODERATE) - Primary Chronic kidney disease, Stage | | III (moderate) | + + documented in this encounter"
--- OUTSIDE RECORDS SUMMARY | ~2019-09-12 | XMS | Encounter Summary ---
Demographics + + + | Address | [address] | | | [place] [address] | + + + | Home Phone [...] Author | [facility] | | | and Clarkeana | + + + | Organization | [facility] [...] | | | | | [place] [address] | | + + + + + | Valentín Saleh | ECON | [address] | | | | | [place] [address] | | + + + + + | Roberto Carlos Lennon | LEVI | Unknown | | + + + + + Care Team Providers + +------+ + | Care Heating Element Builder Name | Role | Phone | [...] | | | | | ([facility]) | | | +--------+--------+ + + + + Encounter Details +--------+ + + + + | Date | Type | Department | Care Team | Description | +--------+ + + + + | 04/05/ | Emergency | [facility] | Nik Olea, | Urinary tract | | 2019 - | | MED CTR MEDICAL | [address] | infection without | | | | [address] [place] | [facility] [place] | hematuria, site | | 04/06/ | | [place] [address] | [place] [address] | unspecified (Primary | | 2019 | | [phone] | [phone] | Dx); Somnolence; | | | | | | Dementia due to | | | | | Royal Avila MD | Alzheimer's disease | | | | | [address] | ([facility]); Hypertension, | | | | | [place] | renal disease, | | | | | [address] | stage 1-4 or | | | | | | unspecified chronic | | | | | oRsibel Aguilar MD | kidney disease | | | | | [address] | | | | | | [place] | | | | | | [address] | | | | | | | [...] Aguilar MD - 04/06/2019 11:30 AM PST [place], [place] HOSPITALIST DISCHARGE SUMMARY Pt. Name/Age/: Alyson [...] and patient reported she was [facility] the morning after admission. Continue cefdinir to [...] information: [address] [place] [address] Condition: stable Diet: cc Less than 30 minutes were spent on discharge and coordination of post-hospital care. Electronically signed by: Rosibel Aguilar MD, 04/06/2019 11:30 AM [facility] documented in this enco unter Discharge Instructions [...] | | | | | | | [id number] = 2 | | | | | | | -[id number] = 4 | | | | | [...] | | | | | ([facility]) | | | | | | [...] PM PSTPt discharged to adult home in [facility] with gopi hernández. Ambrocio Delaney, Label Remover - 04/06/2019 10:54 AM PSTFormatting of this [...] list obtained from: X MAR from facility: [facility] Assisted X Doctor's office: Dr. Pascal Vaccines up to date? Influenza Yes Pneumococcal Yes Tdap Unsure Shingles Yes Noted medications discrepancies or medication-related issues: Dosage/Form/Frequency change: DEEP FAT COOK FRY Medication: Prior to Admission Sig: Correct Dosage/Form: [...] Prior to Admission Sig: Patient taking differently DEEP FAT COOK FRY as: Colchicine 0.6 mg tab 2 tabs by mouth at first sign of gout flare then 1 tab daily as need ed Not taking This is not on the MAR at [facility] Best possible DEEP FAT COOK FRY medication list after pharmacy review: PT REPORTED [...] and electronically signed by Maria Isabel Vaughn, [employer] 2019 10:16 AM Reviewed by Francois Jorge, Label Remover 04/06/2019 10:46 AM doc umented in this encounter H&P Notes Royal Avila MD - 04/05/2019 11:06 PM PST [facility] HISTORY AND PHYSICAL Pt. [...] disease) Carotid stenosis CHF (congestive heart failure) ([facility]) Chronic kidney disease, stage III (moderate) ([facility]) DM type 2 (diabetes mellitus, type 2) ([facility]) 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 DVT (deep vein thrombosis) in Glossitis Gout H/O ventricular septal defect repair Hyperlipemia Hypertension Left ankle pain 07/30/2014 Myocardial infarction (HCC) (1994&1996) CAR with Hx of Myocardial infarction Old MO (myocardial infarction) OSTEOARTHRITIS, ANKLE, LEFT 01/21/2010 Osteoporosis [...] reviewed 2nd to patient's dementia HOME MEDICATIONS: DEEP FAT COOK FRY Home Medications Medication Sig acetaminophen (TYLENOL) 325 [...] and posthospital disc harge will be to [facility] Total of 78 minutes were required to complete the admission process. Electronically signed by: Royal Avila MD 04/05/2019 11:08 PM [facility] documented in this enc ounter Consult Notes Brea Garcia RDN - 04/06/2019 10:47 AM PSTAssociated Order(s): IP CONSULT TO NUTRITION SERVICES NUTRITION THERAPY NOTE Summary Pt Was seen at after breakfast. She needs soft foods d/t no teeth or dentures. No rmally she is able to feed herself but required assistance with breakfast. STRAIGHT LINE PRESS SETTER has seen and only need some modification for texture d/t no teeth, no dysphagia. Estimated Energy and Protein Needs: (based on 58 kg) Kcal needs: 5306-4899 Kcals/day Protein needs:58-70 grams of protein/day Fluid goal:6593-8107 cc fluid per day Nutrition Plan of [...] in 4 days. Available as needed, ext [phone] Assessment: Diet Order: For your reference, the [...] might be different f rom the original. [facility] Alyson Lennon EMERGENCY DEPARTMENT ENCOUNTER NOTE [address] [place] [address] PCP:Francois Pascal MD CHIEF COMPLAINT Chief Complaint [...] disease) Carotid stenosis CHF (congestive heart failure) ([facility]) Chronic kidney disease, stage III (moderate) ([facility]) DM type 2 (diabetes mellitus, type 2) ([facility]) 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 DVT (deep vein thrombosis) in Glossitis Gout H/O ventricular septal defect repair Hyperlipemia Hypertension 1979's Left ankle pain 07/30/2014 Myocardial infarction (HCC) (1994&1996) CAR with Hx of Myocardial infarction Old MO (myocardial infarction) OSTEOARTHRITIS, ANKLE, LEFT 01/21/2010 Osteoporosis [...] TROCHANTERIC NAIL; Surgeon: Ru Barbosa MD; Location: [facility] MAIN OR HIATAL HERNIA REPAIR 1984 ORIF Left Ankle Unstable Trimalleolar Fracture Dislocation 03/24/2009 Previous Inferior Vena Cava Filter CURRENT MEDICATIONS DEEP FAT COOK FRY Home Medications Medication Sig acetaminophen (TYLENOL) 325 [...] rectally Daily as needed for Constipation. [facility]ED [facility] Bed rails for patient bed. UNCODED DME [...] use: No Social History Narrative [place] [...] ST elevation or depression. Probable prior inferior MO. Probable prior anteroseptal MO. This is an abnormal EKG. Prior EKGs [...] resides in an adult family home in [place]. Per EMS, caregiver at adult family home [...] and sitting quietly in bed. Patient's Sigrid ([phone]) and his son Roberto Carlos ([phone]) present and suppor tive at bedside. Assessment completed with patient's as patient with dementia and s eems to be non or minimally verbal. Discharge Planning: Alyson is a frail appearing 88 y.o. that resides at [facility] in [place], [place]. Per report, the patient is minimally verbal, requires assistance with all ADL's, is onl y able to icoof-nlvmi-myxudnho and ambulate a few steps at baseline. The adult family home manages all of the patient's medications. Options for discharge discussed. Patient's family feels that she is getting appropriat e care at the adult [facility] home and deny need for home health or snf services. Patient's family deny any additional questions, concerns, or needs regarding anticipated pl an to return to [facility]. Roberto Carlos states that he will contact the Theresa, dry wall finisher of a , to inform of plan for discharge today and set up transport. She will be available after 1430 today, so time set for 1500. RN and ROOM SERVICE ATTENDANT informed. Patient's caregiver/dry wall finisher of the adult [facility], Theresa Stephens ([phone]) bebe quijano provide transportation. Disposition: Plan A: Return to [facility], transport at 1500 Electronically signed by: [...] soft foods at baseline and is edentulous. STRAIGHT LINE PRESS SETTER completed bedside swallow evaluation and recommend dysphagia [...] further Speech Therapy Planned Interventions: (no skilled STRAIGHT LINE PRESS SETTER needs at this time) Recommended Frequency: one time visit Patient Status/Goals: Reflects last filed data and may be from multiple contributors. Dysphagia Goal Most Recent Value STG Status new, met at 04/06/2019 1035 STG Pt will participate in bedside swallow function. 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 Pt is A&O [...] | | | | | | [place] [address] | | | | | | [phone] | | | | | | | [...] [address] | [place] | [phone] | | [facility] | | [address] | | | - LABORATORY | | [...] [address] | [place] | [phone] | | [facility] | | [address] | | | - LABORATORY | | [...] | mL/min/1.73m2 | [facility] | | | TRINIDADIAN | RATE,ESTIMATED | | MEDICAL | | | | mL/min/1.06f9Vnfa than | | CENTER - | | [...] [address] | [place] | [phone] | | [facility] | | [address] | | | - LABORATORY | | [...] + | [address] | [address] | [place] | [phone] | | [facility] | | [address] | | | - LABORATORY | | [...] + | [address] | [address] | [place] | [phone] | | [facility] | | [address] | | | - LABORATORY | | [...] + | [facility] | [address] | [place] | [phone] | | [facility] | | [address] | | | - LABORATORY | | [...] - 1.030 | [facility] | | | [place], | | | [facility] | | [...] | | Cells, | | | [facility] | | | Urine | | | [...] ST. | [address] | [place] | [phone] | | [facility] | | [address] | | | - LABORATORY | | [...] [address] | [place] | [phone] | | [facility] | | [address] | | | - LABORATORY | | [...] + | [facility] | [address] | [place] | [phone] | | [facility] | | [address] | | | - LABORATORY | | [...] | | | | | | [employer] | | | | | [...] + | [facility] | [address] | [place] | [phone] | | [facility] | | [address] | | | - LABORATORY | | [...] [address] | [place] | [phone] | | [facility] | | [address] | | | - LABORATORY | | [...] + | [facility] | [address] | [place] | [phone] | | [facility] | | [address] | | | - LABORATORY | | [...] mL/min/1.73m2 | [facility] | | | TRINID[place]IAN | RATE,ESTIMATED | | MEDICAL | | | | mL/min/1.57s3Quqz than | | CENTER - | | [...] [address] | [place] | [phone] | | [facility] | | [address] | | | - LABORATORY | | [...] + | [facility] | [address] | [place] | [phone] | | [facility] | | [address] | | | - LABORATORY | | [...] + | [facility] | [address] | [place] | [phone] | | [facility] | | [address] | | | - LABORATORY | | [...] | | | | LUCINA ALAMO, ROSALBA ([id number]) | | | | | | on [...]
--- OUTSIDE RECORDS SUMMARY | ~2019-09-12 | XMS | Encounter Summary ---
Demographics + + + | Address | [address] | | | [place] [address] | + + + | Home Phone [...] | Author | [facility] | | | and Clarkeana | + + + | Organization | [facility] [...] | | | | | [place] [address] | | + + + + + | Valentín Saleh | ECON | [phone] | | | | | [place] [address] | | + + + + + | Roberto Carlos Lennon | LEVI | Unknown | | + + + + + Care Team Providers + +------+ + | Care Piano Instructor Name | Role | Phone | [...] + + | 09/27/ | Office | [facility] | Francois Pascal, | DM (diabetes | | 2015 | Visit | MEDICINE [address] [place] [address] | [address] | mellitus) (Primary | | | | [address] [place], | [address] [place], | Dx); CHRONIC KIDNEY | | | | [place] [address] | [place] [address] | DISEASE STAGE III | | | | [phone] | [phone] | (MODERATE) | | | | | [...] VSD Father 50 Pneumonia Family Hx of Kaibeto's chorea Sister and 2 brothers: CAD, Airam's Disease to Sigrid - with 2 Healthy Children No kidney disease in family. Social History: Reviewed history from 08/11/2011 and no changes required: Born in [facility] for 46 years. and Remarried 2 [...] | Visit | | MD Bob Vasquez [facility] | | | | | | [place], | | | | | | [place] [address] | | | | | | [phone] | | | | | | | [...]
--- OUTSIDE RECORDS SUMMARY | ~2019-09-12 | XMS | Encounter Summary ---
Demographics + + + | Address | [address] | | | [place] [address] | + + + | Home Phone [...] | Author | [facility] | | | and Clarkeana | + + + | Organization | [facility] [...] | | | | | [place] [address] | | + + + + + | Valentín Saleh | ECON | [address] | | | | | [place] [address] | | + + + + + | Roberto Carlos Lennon | LEVI | Unknown | | + + + + + Care Team Providers + +------+ + | Care Sandblaster Supervisor Name | Role | Phone | [...] | (appointment on | | | | [place], | [place], | 12-06-16 needs | | | | [place] [address] | [place] [address] | rescheduled) | | | | [phone] | [phone] | | | | | | | [...] Per patients spouse, she is currently at [employer] [place] and he will have Renee Giang call [...] | | | | | | [place] [address] | | | | | | [phone] | | | | | | | | +--------+---------+ + + + documented as of this encounter Visit Diagnoses Not on filedocumented in this encounter"
--- OUTSIDE RECORDS SUMMARY | ~2019-09-12 | XMS | Encounter Summary ---
Demographics + + + | Address | [address] | | | [place] [address] | + + + | Home Phone [...] + | Author | [facility] | | | and Clarkeana | + + + | Organization | [facility] | | | and [...] | | | | | [place] [address] | | + + + + + | Valentín Saleh | ECON | [address] | | | | | [place] [address] | | + + + + + | Roberto Carlos Lennon | LEVI | Unknown | | + + + + + Care Team Providers + +------+ + | Care Counterintelligence/Humint Specialist Name | Role | Phone | + +------+ + | Francois Pascal MD | PCP | | + +------+ + Reason for Visit + +--------+ + | Reason | Onset | Comments | | | Date | | + +--------+ + | Nephrology | 10/12/ | | | Appointment | 2019 | | + +--------+ + Encounter Details +--------+ + + + + | Date | Type | Department | Care Team | Description | +--------+ + + + + | 10/12/ | Telephone | [facility] | [place], | Nephrology | | 2019 | | NEPHROLOGY [address] | [address] | Appointment | | | | [address] [facility] [address] | [address] [facility] | | | | | [place] | [address] [place] | | | | | [address] | [address] | | | | | [phone] | | | +--------+ + + + [...] this encounter Miscellaneous Notes Telephone Encounter - Janice Lucero - 10/12/2018 2:53 PM [facility] that Alyson's told him to cancel Alyson's appointment today. Fabio said he declined to say why. d ocumented in this encounter Plan of [...] | | | | | | [place] [address] | | | | | | [phone] | | | | | | | | +--------+---------+ + + + documented as of this encounter Visit Diagnoses Not on filedocumented in this encounter"
--- OUTSIDE RECORDS SUMMARY | ~2019-09-12 | XMS | Encounter Summary ---
Demographics + + + | Address | [address] | | | [place] [address] | + + + | Home Phone [...] | [facility] | | | and Clarkeana | + + + | Organization | [facility] | | [...] | | | | | [place] [address] | | + + + + + | Valentín Saleh | ECON | [address] | | | | | [place] [address] | | + + + + + | Roberto Carlos Lennon | LEVI | Unknown | | + + + + + Care Team Providers + +------+ + | Care Motor And Controls Tester Name | Role | Phone | [...] + + | 11/23/ | Office | [facility] | Francois Pascal, | Cellulitis, | | 2018 | Visit | [facility] | [address] | unspecified | | | | [address] | [address] [place] [place], | cellulitis site; | | | | [place], [place] | [place] [address] | Cellulitis and | | | | [address] | [phone] | abscess of foot | | | | [phone] | | | +--------+---------+ + + + [...] | [address] [facility] | | | | | | [place], | | | | | | [place] [address] | | | | | | [phone] | | | | | | | | +--------+---------+ + + + documented as of this encounter Visit Diagnoses + + | Diagnosis | + + | Cellulitis, unspecified cellulitis site | + + | Cellulitis and abscess of foot Cellulitis and abscess of foot, except toes | + + documented in this encounter"
--- OUTSIDE RECORDS SUMMARY | ~2019-09-12 | XMS | Encounter Summary ---
Demographics + + + | Address | [address] | | | [place] [address] | + + + | Home Phone [...] | Author | [facility] | | | and Clarkeana | + + + | Organization | [facility] | | [...] | | | | | [place] [address] | | + + + + + | Valentín Saleh | ECON | [phone] | | | | | [place] [address] | | + + + + + | Roberto Carlos Lennon | LEVI | Unknown | | + + + + + Care Team Providers + +------+ + | Care Senior Clinical Research Associate Name | Role | Phone | [...] Description | +--------+--------+ + + + | 10/07/ | Refill | [facility] | Francois Pascal, | Medication Refill | | 2014 | | MEDICINE [place] | [address] | | | | | [address] | [address] [place], | | | | | [place] | [place] [address] | | | | | [address] | [phone] | | | | | [phone] | | | +--------+--------+ + + + [...] | | | | | | [place] [id number] | | | | | | [phone] | | | | | | | | +--------+---------+ + + + documented as of this encounter Visit Diagnoses Not on filedocumented in this encounter"
--- OUTSIDE RECORDS SUMMARY | ~2019-09-12 | XMS | Encounter Summary ---
Demographics + + + | Address | [address] | | | [place] [address] | + + + | Home Phone [...] | Author | [facility] | | | and [place]ana | + + + | Organization | [facility] | | [...] | | | | | [place] [address] | | + + + + + | Valentín Saleh | ECON | [address] | | | | | [place] [address] | | + + + + + | Roberto Carlos Lennon | LEVI | Je[place] | | + + + + + Care Team Providers + +------+ + | Care Blindmaker Name | Role | Phone | + +------+ + PCP | Unavailable | + +------+ + Encounter Details +--------+ + + + + | Date | Type | Department | Care Team | Description | +--------+ + + + + | 03/29/ | Hospital | [facility] | | | | 2004 | Encounter | MED CTR XRAY [address] | | | | | | [place] | | | | | | [place] [address] | | | | | | [phone] | | | +--------+ + + + [...] | | | | | | [place] [address] | | | | | | [phone] | | | | | | | | +--------+---------+ + + + documented as of this encounter Visit Diagnoses Not on filedocumented in this encounter"
--- OUTSIDE RECORDS SUMMARY | ~2019-09-12 | XMS | Encounter Summary ---
Demographics + + + | Address | [address] | | | [place] [address] | + + + | Home Phone [...] + | Author | [facility] | | | and [place] | + + + | Organization | [facility] | [...] | | | | | [place] [address] | | + + + + + | Valentín Saleh | ECON | [address] | | | | | [place] [address] | | + + + + + | Roberto Carlos Lennon | LEVI | [place] | | + + + + + Care Team Providers + +------+ + | Care Paper Tube Machine Operator Name | Role | Phone | + +------+ + PCP | Unavailable | + +------+ + Encounter Details +--------+ + + + + | Date | Type | Department | Care Team | Description | +--------+ + + + + | 05/06/ | Hospital | [facility] | Jason Hernandez, | | | 2009 | Encounter | MED CTR XRAY [address] | PA-C [address] | | | | | [place] | [address] [place] | | | | | [place] [address] | [place] [address] | | | | | [phone] | [phone] | | | | | | | [...] | | | | | | [place] [address] | | | | | | [phone] | | | | | | | | +--------+---------+ + + + documented as of this encounter Visit Diagnoses Not on filedocumented in this encounter"
--- OUTSIDE RECORDS SUMMARY | ~2019-09-12 | XMS | Encounter Summary ---
Demographics + + + | Address | [address] | | | [place] [address] | + + + | Home Phone [...] | Author | [facility] | | | and Clarkeana | + + + | Organization | [facility] | | [...] | | | | | [place] [address] | | + + + + + | Valentín Saleh | ECON | [address] | | | | | [place] [address] | | + + + + + | Roberto Carlos Lennon | LEVI | Unknown | | + + + + + Care Team Providers + +------+ + | Care Solderer Barrel Ribs Name | Role | Phone | + [...] Description | +--------+--------+ + + + | 09/13/ | Refill | [facility] | Francois Pascal, | Medication Refill | | 2014 | | MEDICINE [facility] | [address] | | | | | [address] [place], | [address] [place], | | | | | [place] [address] | [place] [address] | | | | | [phone] | [phone] | | | | | | | [...] | | | | | | [place] [address] | | | | | | [phone] | | | | | | | | +--------+---------+ + + + documented as of this encounter Visit Diagnoses Not on filedocumented in this encounter"
--- OUTSIDE RECORDS SUMMARY | ~2019-09-12 | XMS | Encounter Summary ---
Demographics + + + | Address | [address] | | | [place] [address] | + + + | Home Phone [...] | Author | [facility] | | | and Clarkeana | + + + | Organization | [facility] | | | and [...] | | | | | [place] [address] | | + + + + + | Valentín Saleh | ECON | [address] | | | | | [place] [address] | | + + + + + | Roberto Carlos Lennon | LEVI | Unknown | | + + + + + Care Team Providers + +------+ + | Care Cloth Worker Name | Role | Phone | [...] + | 10/13/ | Telephone | [facility] | Francois Pascal, | SNF Discharge | | 2019 | | [facility] [place] | [address] | | | | | [address] | [address], | | | | | [place] | [place] [address] | | | | | [address] | [phone] | | | | | [phone] | | | +--------+ + + + [...] media tab. Printed and routed to the frontend engineer. Na is going to come pick u p order now. eleph one Encounter - Ayanna Mederos RN - 10/17/2018 9:14 AM PDTReceived phone call Kayla lopez jose Giang. Asking if we can please refax the note that says she can be discharged. Per message above, this was written by Dr Thayer on 02/12. Phone [phone] FAX [phone] elephone Encount er - Yamileth Bah RN - 10/16/2018 11:16 AM PDTNorco paperwork being addressed in sepa rate encounter. Please fax note to Renee Giang. elephone Encounter - Roshni Nance - 10/16/2018 11:03 AM PDTRenee Giang called stating to please fax paperwork to [phone]. Also stated [facility] needs paperwork for brigido ent[employer] medical supplies. el ephone Encounter - Sherlyn Fritz - 10/13/2018 1:50 PM PDTLeft message with Francisca nguyen [facility] that note is ready to be picked up. Placed in cabinet. elephone Encounter - Roberto Carlos Thayer MD - 10/13/2018 12:50 PM PDTSigned and in folder to Front Office. Thanks! Federico Thayer MD elephone Encounter - Lisa Pittman RN - 10/13/2018 11:45 AM PDTScheduled patient for SNF discharge . (not a TCM) Message forwarded onto Francisca nguyen [facility] also. elephone Encounter - Diamond Sebastian RN - 9 11:45 AM PDTJustine [facility] is getting ready [facility] to adult family home. has authorized this. [facility]. [facility] aly needs a signed order from a provider stating that it okay for patient to ananya today 10/13/2018 Francisca EXT [id number] 1 1:48 AM PDTTelephone Encounter - Ayanna Mederos RN - 10/13/2018 10:43 AM PDTReceived p nelly call from Francisca [facility]. Patient has been preparing to discharge to an Adult Family Home in [place]. Today, they notified her that they would [...] | | | | | | [place] [address] | | | | | | [phone] | | | | | | | | +--------+---------+ + + + documented as of this encounter Visit Diagnoses Not on filedocumented in this encounter"
--- OUTSIDE RECORDS SUMMARY | ~2019-09-12 | XMS | Encounter Summary ---
Demographics + + + | Address | [address] | | | [place] [address] | + + + | Home Phone [...] Author | [facility] | | | and Clarkeana | + + + | Organization | [facility] | | | and [...] | | | | | [place] [address] | | + + + + + | Valentín Saleh | ECON | [address] | | | | | [place] [address] | | + + + + + | Roberto Carlos Lennon | LEVI | Unknown | | + + + + + Care Team Providers + +------+ + | Care Locks Tender Name | Role | Phone | + +------+ + | Francois Pascal MD | PCP | | + +------+ + Reason for Visit +--------+--------+ + | Reason | Onset | Comments | | | Date | | +--------+--------+ + | Other | 07/30/ | discuss imaging | | | 2014 | | +--------+--------+ + Encounter Details +--------+ + + + + | Date | Type | Department | Care Team | Description | +--------+ + + + + | 07/30/ | Telephone | [facility] [place] | Lashawn Wyman, | Other (discuss | | 2014 | | PHYSIATRY [address] | HEALTHCARE SOCIAL WORKER | imaging) | | | | [address] | | | | | | [place] | | | | | | [address] | | | | | | [phone] | | | +--------+ + + + [...] this encounter Miscellaneous Notes Telephone Encounter - Lashawn Wyman Master of Arts - 07/30/2014 4:55 PM PDTCalled pat ient to relay xray results. 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 There has been significa nt worsening since the prior x-rays. This is likely the source of her pain. I would offer her a left tibiotalar joint injection as the next step. If that provides only short term re lief the next step would be to get her a new Torie brace or have her old one modified/repa ird. docu mented in this encounter Plan of Treatment +--------+---------+ + + + | Date | Type | Specialty | Care Team | Description | +--------+---------+ + + + | 12/06/ | Office | Cardiology | Stephenie Paul, | | | 2020 | Visit | | MD [facility] | | | | | | [place] [place] | | | | | | [place] [address] | | | | | | [phone] | | | | | | | | +--------+---------+ + + + documented as of this encounter Visit Diagnoses Not on filedocumented in this encounter"
--- OUTSIDE RECORDS SUMMARY | ~2019-09-12 | XMS | Encounter Summary ---
Demographics + + + | Address | [address] | | | [place] [address] | + + + | Home Phone [...] Author | [facility] | | | and [place] | + + + | Organization | [facility] [...] | | | | | [place] [address] | | + + + + + | Valentín Saleh | ECON | [address] | | | | | [place] [address] | | + + + + + | Roberto Carlos Lennon | LEVI | Unknown | | + + + + + Care Team Providers + +------+ + | Care Recreation Center Director Name | Role | Phone | + +------+ + | Francois Pascal MD | PCP | | + +------+ + Reason for Visit + + + | Reason | Comments | + + + | Ankle Pain | left ankle pain | + + + Evaluate & Treat [...] | | | | [place], [place] | [address] Phone: | | | | | | [address] | [phone] | | | | | | Phone: | Fax: | | | | | | [phone] | [phone] | | | | | | Fax: | | | | | | | [phone] | | +--------+ + + + + + Encounter Details +--------+---------+ + + + | Date | Type | Department | Care Team | Description | +--------+---------+ + + + | 07/30/ | Office | [facility] | Glenn Miramontes | Left ankle pain | | 2014 | Visit | PH[address]SIATRY [address] | [address] | (Primary Dx) | | | | [address] | [place], [place] | | | | | [place], [place] | [address] | | | | | [address] | | | | | | [phone] | | | +--------+---------+ + + + [...] Weight | 74.8 kg (165 lb) | 07/30/2014 9:44 AM | | | | | PDT | | + + + + + | Height | 162.6 cm (5' 4") | 07/30/2014 9:44 AM | | | | | PDT | | + + + + + | Body Mass Index | 28.32 | 07/30/2014 9:44 AM | | | | | PDT | | + + + + + documented in this encounter Progress Notes Glenn Miramontes MD - 07/30/2014 9:45 AM PDT CHIEF COMPLAINT: Chief Complaint Patient presents with Ankle Pain left ankle pain HISTORY OF PRESENT ILLNESS: The patient is a 83 y.o. female being seen today for complaint s of left ankle pain that began 5 years ago when she broke her ankle. The patient states she was at her doctors office when she was stepping off the exam table and slipped and fell. Sh jose raul did go on to have an ORIF and then a second surgery to go in and remove the fibular plate and screws. Unfortunately she has continued to have pain and discomfort in that ankle and f oot since that time. Her symptoms worsen with any standing or walking. Her symptoms improve with use of an ankle brace, unfortunately the prior brace that she use d to use has become stretched out and is no longer very useful. 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 Myocardial infarction ([facility]) (1994&1996) CAR with Hx of Myocardial infarction Other abnormal clinical finding Verebral Compression Fractures Glossitis CAD (coronary artery disease) CHF (congestive heart failure) ([facility]) Arthritis Old CA (myocardial infarction) Carotid stenosis H/O ventricular septal defect repair DVT (deep vein thrombosis) in Chronic kidney disease, stage III (moderate) Vitamin D deficiency Gout Osteoporosis OSTEOARTHRITIS, ANKLE, [...] fracture dislocation 03/24/2009 Breast surgery 1975 BIOPSY BRESAMaurice, LEFT CURRENT MEDICATIONS: Current Outpatient Prescriptions Medication Sig [...] 90 tablet 3 methotrexate 2.5 mg tablet TAKE 5 TABLETS BY MOUTH ONCE WEEKLY 20 tablet 11 metoprolol (TOPROL-XL) 200 MG 24 hr tablet TAKE ONE TABLET BY MOUTH EVERY DAY 90 tablet 3 multivitamin (THERAGRAN) per tablet Take 1 by mouth daily niacin (NIASPAN) 500 mg CR tablet TAKE ONE TABLET BY MOUTH EVERY DAY 30 tablet 6 NOVOLOG 100 UNIT/ML injection INJECT 18 UNITS IN THE MORNING, 23 UNITS BEFORE LUNCH AND 28 UNITS BEFORE DINNER 20 mL 3 simvastatin (ZOCOR) 40 mg tablet TAKE ONE-HALF TABLET BY MOUTH EVERY DAY 135 tablet 1 No current facility-administered medications for this visit. ALLERGIES: Allergies Allergen Reactions Codeine Sulfate Nausea And Vomiting Darvon Nausea Only Estrogens Patient can't remember SOCIAL HISTORY: The patient reports that she has never smoked. She has never used smokeless tobacco. She r eports that she does not drink alcohol or use illicit drugs. FAMILY HISTORY: Family History Problem Relation Age of Onset Heart attack Mother possible VSD Heart disease Mother Other (See Comment) Father pneumonia Other (See Comment) Other family history of Hardin's Disease Other (See Comment) Other No kidney [...] joint pain/arthritis, no rheumatoid arthritis PHYSICAL EXAMINATION: Height 1.626 m (5' 4"), weight 74.844 kg (165 lb), not currently . Body mass i ndex is 28.31 kg/(m^2). GENERAL: The patient is well developed [...] lower extremity edema. ABDOMEN: The patient is overweight. NEUROLOGIC: The patient is awake, alert, and oriented to time, place, person. She follows simple and complex commands. Her speech is fluent. She comprehends speech well. She has no apparent deficits with short or fci memory. She has appropriate fund of knowledge Cranial nerves 2-12 appear grossly intact. Sensory exam does not show diminished sensation to light touch in the upper and lower extre mities. REFLEX: RIGHT LEFT PATELLAR 2+ 2+ ACHILLES 1+ 1+ PLANTAR Downgoing Downgoing MUSCULOSKELETAL She had diffuse tenderness around the [...] of the tibiotalar joint at that time. ASSESSMENT: Encounter Diagnosis Name Primary? Left ankle pain Yes PLAN: 1. I would like to obtain new imaging of the left ankle to evaluate for possible progressio n of arthritis in the tibiotalar joint. 2. The patient was advised if the xrays do show arthritis an injection into the ankle under xray guidance may be warranted. We discussed that is not a cure but may provide some relie f and if the benefit lasts for months at a time this may be a good treatment option. 3. Torie brace modification or replacement may be warranted since she has an Torie styl e brace that was helping but now is reportedly stretched out and ineffective. 4. Surgical intervention was discussed including ankle replacement or ankle fusion, at her age and with her medical comorbidities I am not sure that is a great option. ELECTRONICALLY EDITED AND SIGNED BY: Glenn Miramontes MD, 07/30/2014 Scribed by: Lashawn Wyman MA for Dr. Glenn Miramontes on 07/30/2014 documented in this encounter Plan of Treatment +--------+---------+ + + + | Date | Type | Specialty | Care Team | Description | +--------+---------+ + + + | 12/06/ | Office | Cardiology | Stephenie Paul, | | | 2019 | Visit | | MD [facility] | | | | | | [place], | | | | | | [place] [address] | | | | | | [phone] | | | | | | | | +--------+---------+ + + + documented as of this encounter Results XR Ankle Left 2 [...] + | Al, Rad Results In - 07/30/2014 11:02 AM PDT [...] | [facility] | [address] | [place], [place] | [phone] | | [facility] | | [address] | | | - IMAGING | | | | + + + + + documented in this encounter Visit Diagnoses + + | Diagnosis | + + | Left ankle pain - Primary Pain in joint, ankle and foot | + + documented in this encounter
--- OUTSIDE RECORDS SUMMARY | ~2019-09-12 | XMS | Encounter Summary ---
Demographics + + + | Address | [address] | | | [place] [address] | + + + | Home Phone [...] Author | [facility] | | | and [place]ana | + + + | Organization | [facility] | | [...] | | | | | [place] [address] | | + + + + + | Valentín Saleh | ECON | [address] | | | | | [place] [address] | | + + + + + | Roberto Carlos Lennon | LEVI | Unknown | | + + + + + Care Team Providers + +------+ + | Care Civil Rights Attorney Name | Role | Phone | [...] Refill | | 2012 | | [facility] [place] | [address] | | | | | [address] | [address], | | | | | [place] | [place] [address] | | | | | [address] | [phone] | | | | | [phone] | | | +--------+--------+ + + + [...] | | | | | | [place] [address] | | | | | | [phone] | | | | | | | | +--------+---------+ + + + documented as of this encounter Visit Diagnoses Not on filedocumented in this encounter"
--- OUTSIDE RECORDS SUMMARY | ~2019-09-12 | XMS | Encounter Summary ---
Demographics + + + | Address | [address] | | | [place] [address] | + + + | Home Phone [...] | [facility] | | | and [place] | + + + | Organization | [facility] | | | and [...] | | | | | [place] [address] | | + + + + + | Valentín Saleh | ECON | [address] | | | | | [place] [address] | | + + + + + | Roberto Carlos Lennon | LEVI | Jeyson | | + + + + + Care Team Providers + +------+ + | Care Slurry Tank Operator Name | Role | Phone | + +------+ + PCP | Unavailable | + +------+ + Encounter Details +--------+ + + + + | Date | Type | Department | Care Team | Description | +--------+ + + + + | 02/08/ | Hospital | [facility] | | | | 2005 | Encounter | [facility] | | | | | | [address] | | | | | | [place] | | | | | | [address] | | | | | | [phone] | | | +--------+ + + + [...] | | | | | | [place] [address] | | | | | | [phone] | | | | | | | | +--------+---------+ + + + documented as of this encounter Visit Diagnoses Not on filedocumented in this encounter"
--- OUTSIDE RECORDS SUMMARY | ~2019-09-12 | XMS | Encounter Summary ---
Demographics + + + | Address | [address] | | | [place] [address] | + + + | Home Phone | | + + + | Preferred Language | Unknown | + + + | Marital Status | | + + + | Shinto Affiliation | Unknown | + + + | Race | Unknown | + + + | Ethnic Group | Unknown | + + + Author + + + | Author | [facility] | | | and [place] | + + + | Organization | [facility] | | [...] | | | | | [place] [address] | | + + + + + | Valentín Saleh | ECON | [address] | | | | | [place] [address] | | + + + + + | Roberto Carlos Lennon | LEVI | Unknown | | + + + + + Care Team Providers + +------+ + | Care Chlorobutadiene Scrubber Operator Name | Role | Phone | [...] | hypertension | [address] | MICROWAVE REMOTE 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 [address] | | | | | Chronic | [place] | [address] | | | | | kidney | [place] | [address] | | | | | disease, | [address] | [place], | | | | | stage III | Phone: | [place] [address] | | | | | (moderate) | [phone] | Phone: | | | | | (HCC) Type | Fax: | [phone] | | | | | II or | [phone] | Fax: | | | | | unspecified | | [phone] | | | | | type | [...] | | | | | | | [place] OFFICE | | | | | | | OUTPATIENT | | | | | | | VISIT 25 | | | | | | | MINUTES | | | +--------+--------+ + + + + Encounter Details +--------+---------+ + + + | Date | Type | Department | Care Team | Description | +--------+---------+ + + + | 12/09/ | Office | [facility] [place] | [place], | CHRONIC KIDNEY | | 2015 | Visit | NEPHROLOGY [address] | [address] | DISEASE STAGE III | | | | [address] | [address] | (MODERATE) (Primary | | | | [place], [place] | [address] | Dx); Hypertension, | | | | [address] | [address] | renal disease, stage | | | | [phone] | | 1-4 or unspecified | | | | | | chronic kidney | | | | | | disease; DM type 2, | | | | | | uncontrolled, with | | | | | | renal complications | | | | | | ([facility]); Vitamin D | | | | | [...] + + + | Blood Pressure | 102/52 | 12/09/2014 12:00 PM | | | | | PDT | | + + + + + | Pulse | 64 | 12/09/2014 11:11 AM | | | [...] | 72.5 kg (159 lb 12.8 | 12/09/2014 11:11 AM | | | | oz) | PDT | | + + + + + | Height | 157.5 cm (5' 2") | 12/09/2014 11:11 AM | | | | | PDT | | + + + + + | Body Mass Index | 29.23 | 12/09/2014 11:11 AM | | | | | PDT | | + + + + + documented in this encounter Patient Instructions Patient Instructions Kemar Herndon ARNP - 12/09/2014 12:03 PM PDTKidney function is stable. No changes to medications. Please monitor blood pressure at home. Goal 110-140 on top number. Notify office if not wit hin goal. Please avoid taking NSAIDs. These are some commonly used NSAIDs: ibuprofen (Motrin,Advil), naproxen (Aleve, Naprosyn), celecoxib (Celebrex), indomethacin (Indocin), meloxicam (Mobic). documented in this encounter Progress Notes Kemar Herndon ARNP - 12/09/2014 11:15 AM PDTFormatting of this note might be diff erent from the original. Nephrology Follow-up Visit Visit date: 12/09/2014 Primary care provider: Francois Pascal MD Follow-up type: 6 months HPI: Alyson Lennon is a 83 y.o. female following up for CKD. 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 Corado, hyperlipidemia, gout, glossitis, and vitamin D deficiency. Serum creatinine has fluctuated from 1.1-1.4 mg/dl since 2010. Patient reports falling on a sidewalk in October and had lower appetite after that. After mu ltiple visits to ER, they found that she was constipated. After that was treated her appetit e improved. She reports home BP 116-118 mmHg systolic. ROS: Fell around 05 of October. Lost appetite. Swelling left ankle-FX several years ago. Denies fatigue, chest pain, dyspnea, orthopnea, nausea, vomiting, dysuria, hematuria, uri nary frequency. PMH: Patient Active Problem List Diagnosis Date Noted DM (diabetes mellitus) 12/27/2011 Priority: High Glossitis Priority: High Hyperlipidemia Priority: High CHRONIC KIDNEY DISEASE STAGE III (MODERATE) Priority: High HTN (hypertension) 05/25/2010 Priority: High OSTEOARTHRITIS, ANKLE, LEFT 01/21/2010 Priority: High Gout, unspecified 01/21/2010 Priority: Medium Note Last Updated: 12/07/2014 ICD-10 Record update Bilateral carotid artery stenosis 12/09/2014 Cystitis 12/09/2014 UTI (lower urinary tract infection) 10/21/2014 Cerebral contusion without loss of consciousness, unspecified laterality, sequela (HCC) 10/21/2014 Transient alteration of awareness 10/17/2014 Head contusion, initial encounter 10/17/2014 Left ankle pain 07/30/2014 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 Preventative health care 03/23/2012 Note Last Updated: 09/27/2012 CRSC:03/23/2002normal except for redundancy and atonicity Next Due: Mammo:03/02/2012 benign Next:03/02/2013 Pap:03/24/2009 negative Next: CAROTID STENOSIS AMAUROSIS FUGAX DEMYELINATING DISEASE, CENTRAL NERVOUS SYSTEM FRACTURE, ANKLE, LEFT VITAMIN D DEFICIENCY HTN CKD UNS W/CKD [...] Outpatient Prescriptions Marked as Taking for the 12/09/14 encounter (Office Visit) with LAURO Kern Medication [...] BY MOUTH EVERY DAY 90 tablet 1 insulin aspart (NOVOLOG) 100 units/mL injection Inject 30 Units under the skin 3 times daily (before meals). JANUVIA 100 MG tablet TAKE ONE TABLET BY MOUTH EVERY DAY 90 tablet 1 LANTUS 100 UNIT/ML injection (vial) INJECT 120 UNITS AT BEDTIME 50 mL 6 methotrexate 2.5 mg tablet TAKE 5 TABLETS BY MOUTH ONCE WEEKLY 20 tablet 11 metoprolol succinate (TOPROL-XL) 200 mg ER tablet TAKE ONE TABLET BY MOUTH EVERY DAY 90 tablet 3 multivitamin (THERAGRAN) per tablet Take 1 by mouth daily niacin (NIASPAN) 500 mg CR tablet TAKE ONE TABLET BY MOUTH EVERY DAY 30 tablet 6 polyethylene glycol (MIRALAX) powder Take 1 diluted capful by mouth 3 times daily (befo re meals). 255 g 0 simvastatin (ZOCOR) 40 mg tablet TAKE ONE-HALF TABLET BY MOUTH EVERY DAY 45 tablet 3 Allergies Allergen Reactions Codeine Sulfate Nausea And Vomiting Darvon Nausea Only Estrogens Patient can't remember Physical Exam: Filed Vitals: 12/09/14 1111 12/09/14 1200 BP: 96/50 102/52 Pulse: 64 Height: 1.575 m (5' 2") Weight: 72.485 kg (159 lb 12.8 oz) Body mass index is 29.22 kg/(m^2). Constitutional: Appears well-developed and well-nourished. No distress. ENT: Oropharynx is clear and oral mucosa is moist. Cardiovascular: Normal rate, regular rhythm and normal heart sounds. Exam reveals no perez p and no friction rub. No murmur heard. No JVD. 1+ edema below knees, compression stockings in place. Lungs: Respiratory effort normal and breath sounds normal. No crackles or wheezes. Abdominal: Soft. Bowel sounds are present. No distension or tenderness. Musculoskeletal: No joint swelling. No muscle tenderness. Skin: Skin is warm. No rash over extremities. Neurological: Alert. Memory intact. Reviewed labs with patient. Office Visit on 12/09/2014 Component Date Value Ref Range Status POC COLOR UA 12/09/2014 Yellow Yellow, Light Yellow Final POC CLARITY UA 12/09/2014 Clear Final POC GLUCOSE UA 12/09/2014 Negative Negative Final POC BILIRUBIN UA 12/09/2014 Negative Negative Final POC KETONES UA 12/09/2014 Negative Negative, 100 mg/dL Final POC SPECIFIC GRAVITY UA 12/09/2014 1.015 1.001 - 1.030 Final POC BLOOD UA 12/09/2014 Negative Negative Final POC PH UA 12/09/2014 5.0 5.0, 6.0, 7.0, 8.0, 5.5, 6.5, 7.5 Final POC PROTEIN UA 12/09/2014 Negative Negative Final POC UROBILINOGEN UA 12/09/2014 0.2 0.2, Negative, Normal, < 0.2 mg/dL, 1 mg/dL, < 0.2 E.U./dl, 1.0 E.U./dL, 0.2 mg/dL Final POC NITRITE UA 12/09/2014 Negative Final POC LEUKOCYTE ESTERASE UA 12/09/2014 Negative Negative Final Hospital Outpatient Visit on 12/02/2014 Component Date Value Ref Range Status NA 12/02/2014 140 136-149 mmol/L Final K 12/02/2014 3.8 3.5-5.1 mmol/L Final CL 12/02/2014 102 98-109 mmol/L Final CO2 12/02/2014 30 24-31 mmol/L Final ANION GAP 12/02/2014 8 3-16 mmol/L Final GLUCOSE 12/02/2014 89 70-109 mg/dL Final BUN 12/02/2014 20* 7-18 mg/dL Final Creatinine, Serum/Plasma 12/02/2014 1.37* 0.60-1.30 mg/dL Final eGFR if not 12/02/2014 37* >=60 mL/min/1.73m2 Final GLOMERULAR FILTRATION RATE,ESTIMATED mL/min/1.73m2 Less than 60 Chronic kidney disease,if found over a 3-month period. Less than 15 Kidney failure For Americans,multiply the calculated GFR by 1.21. 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 -Serum creatinine is stable within baseline -continue goal of hypertensive and glycemic control Problem # 2: HTN CKD UNS W/CKD STAGE I THRU STAGE IV/UNS Blood pressure appears low normal in clinic, better at home. Fluid status appears stable. -no change to current regimen Problem # 3: DIABETES MELLITUS, TYPE II, UNCONTROLLED, WITH COMPLICATIONS Hgb A1c trending up. Patient could benefit from increased activity level but is limited due to ankle problems. -continue follow up with primary provider for management Problem # 4: VITAMIN D DEFICIENCY PTH, calcium and phosphorus are fine. Recheck Vitamin D at next visit. Follow up: 6 months Labs: renal panel, vitamin D 25 [place], urine protein/creatinine ratio Patient verbalized agreement and understanding of [...] | | | | | | [place] [address] | | | | | | [phone] | | | | | | | | +--------+---------+ + + + documented as of this encounter Procedures + +--------+ + + + | Procedure Name | Priori | Date/Time | Associated Diagnosis | Comments | | | ty | | | | + +--------+ + + + | POCT URINALYSIS, | Routin | 12/09/2014 | CHRONIC KIDNEY | Results for this | | AUTO WITH CONF | e | 11:00 AM | DISEASE STAGE III | procedure are in the | | | | PDT | (MODERATE) | results section. | + +--------+ + + + documented in this encounter Results POCT Urinalysis Dipstick Automated (12/09/2014 11:00 AM PDT) + + + + + [...] 1.001 - 1.030 | | | | [place], | | | | | | UA, [...]
--- OUTSIDE RECORDS SUMMARY | ~2019-09-12 | XMS | Encounter Summary ---
Demographics + + + | Address | [address] | | | [place] [address] | + + + | Home Phone [...] [facility] | | | and [place] | + + + | Organization | [facility] | | [...] | | | | | [place] [address] | | + + + + + | Valentín Saleh | ECON | [address] | | | | | [place] [address] | | + + + + + | Roberto Carlos Lennon | LEVI | Unknown | | + + + + + Care Team Providers + +------+ + | Care Manager Business Planning Name | Role | Phone | + [...] | | | | disease, | [address] | DRIVER SERVICE TECHNICIAN [address] | | | | | stage 3 | [place] | [address] | | | | | (moderate) | [place] | [address] | | | | | (HCC) | [address] | [place], | | | | | Hypertension | Phone: | [place] [address] | | | | | , renal | [phone] | Phone: | | | | | disease | Fax: | [phone] | | | | | Procedures | [phone] | Fax: | | | | | [place] OFFICE | | [phone] | | | | | OUTPATIENT | | | | | | | VISIT 25 | | | | | | | MINUTES | | | +--------+--------+ + + + + Encounter Details +--------+---------+ + + + | Date | Type | Department | Care Team | Description | +--------+---------+ + + + | 04/05/ | Office | [facility] [place] | [place], | CHRONIC KIDNEY | | 2017 | Visit | NEPHROLOGY [address] | [address] | DISEASE STAGE III | | | | [address] | [address] [facility] | (MODERATE) (Primary | | | | [place] | [address] | Dx); Hypertension, | | | | [address] | [address] | renal disease, stage | | | | [phone] | | 1-4 or unspecified | | [...] Date Noted DM (diabetes mellitus) ([facility]) 12/27/2011 Priority: High Glossitis Priority: High Hyperlipidemia Priority: High CHRONIC KIDNEY DISEASE STAGE III (MODERATE) Priority: High Essential hypertension with goal blood pressure less than 130/80 05/25/2010 Priority: High OSTEOARTHRITIS, ANKLE, LEFT 01/21/2010 Priority: High Gout, unspecified 01/21/2010 Priority: Medium Note Last Updated: 12/07/2014 ICD-10 Record update Gingival bleeding 12/02/2015 Diabetic neuropathy ([facility]) 11/26/2015 Unsteady 12/24/2014 Posture imbalance 12/24/2014 Impaired [...] 10/21/2014 Note Last Updated: 01/08/2015 Problem list psychological operations utility Cerebral contusion without loss of consciousness, unspecified laterality, sequela ([facility]) 10/21/2014 Transient alteration of awareness 10/17/2014 Head contusion, initial encounter 10/17/2014 Note Last Updated: 01/08/2015 Problem list psychological operations utility Left ankle pain 07/30/2014 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/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 Note Last Updated: 12/16/2015 Problem list psychological operations utility Preventative health care 03/23/2012 Note Last Updated: 09/27/2012 CRSC:03/23/2002normal except for redundancy and atonicity Next Due: Mammo:03/02/2012 benign Next:03/02/2013 Pap:03/24/2009 negative Next: CAROTID STENOSIS AMAUROSIS FUGAX DEMYELINATING DISEASE, CENTRAL NERVOUS SYSTEM FRACTURE, ANKLE, LEFT VITAMIN D DEFICIENCY Hypertension, renal disease DM type 2, uncontrolled, with renal complications (HCC) Coronary artery disease involving [place] coronary artery of [place] heart without angina pectoris Note Last Updated: [...] tablet by mouth nightly. 90 tablet 3 Gtpeleq-Qdhijnkbk-Yffhwiq D (CALCIUM 500 PO) Take by mouth [...] | | | | | | [place] [address] | | | | | | [phone] | | | | | | | [...] 3 chronic kidney disease, unspecified | | group home insulin use status | + + | Vitamin D deficiency Unspecified vitamin D deficiency | + + documented in this encounter
--- OUTSIDE RECORDS SUMMARY | ~2019-09-12 | XMS | Encounter Summary ---
Demographics + + + | Address | [address] | | | [place] [address] | + + + | Home Phone [...] Author | [facility] | | | and [place] | + + + | Organization | [facility] [...] | | | | | [place] [address] | | + + + + + | Valentín Saleh | ECON | [address] | | | | | [place] [address] | | + + + + + | Roberto Carlos Lennon | LEVI | Unknown | | + + + + + Care Team Providers + +------+ + | Care Clinical Application Manager Name | Role | Phone | + +------+ + | Francois Pascal MD | PCP | | + +------+ + Encounter Details +--------+ + + + + | Date | Type | Department | Care Team | Description | +--------+ + + + + | 06/23/ | Hospital | [facility] | Francois Pascal, | DM (diabetes | | 2013 | Encounter | [facility] | [address] | mellitus) ([facility]); | | | | [address] [place] | [address] [place], | CHRONIC KIDNEY | | | | [place], [place] | [place] [address] | DISEASE STAGE III | | | | [address] | [phone] | (MODERATE); | | | | [phone] | | ARTHRITIS, CHRONIC | +--------+ + + + + Social [...] | | | mellitus) ([facility]) | | | | | | [...] TABLETS BY | 20 | 1 | 06/22/19 | | | mg tablet | MOUTH WEEKLY. | tablet | | 13 | 3 [...] encounter Progress Notes Francois Pascal MD - 06/23/2012 12:17 PM PDT Quick Note: Ok for ma [...] [place] | | | | | | [place], | | | | | | [place] [address] | | | | | | [phone] | | | | | | | | +--------+---------+ + + + documented as of this encounter Procedures + +--------+ + + + | Procedure Name | Priori | Date/Time | Associated Diagnosis | Comments | | | ty | | | | + +--------+ + + + | CBC WITH | Routin | 06/23/2012 | ARTHRITIS, CHRONIC | Results for this | | DIFFERENTIAL | e | 9:32 AM | | procedure are in the | | | | PDT | | results section. | + +--------+ + + + | PHOSPHORUS | Routin | 06/23/2012 | | Results for this | | | e | 9:32 AM | | procedure are in the | | | | PDT | | results section. | + +--------+ + + + | PARATHYROID HORMONE, | Routin | 06/23/2012 | | Results for this | | INTACT | e | 9:32 AM | | procedure are in the | | | | PDT | | results section. | + +--------+ + + + | HEMOGLOBIN A1C | Routin | 06/23/2012 | DM (diabetes | Results for this | | | e | 9:32 AM | mellitus) (HCC) | procedure are in the | | | | PDT | | results section. | + +--------+ + + + | COMPREHENSIVE | Routin | 06/23/2012 | CHRONIC KIDNEY | Results for this | | METABOLIC PANEL | e | 9:32 AM | DISEASE STAGE III | procedure are in the | | | | PDT | (MODERATE) | results section. | + +--------+ + + + documented in this encounter Results Phosphorus (06/23/2012 9:32 AM PDT) + +-------+ + + + | Component | Value | Ref Range | Performed | Pathologist | | | | | At | Signature | + +-------+ + + + | Phosphorus | 3.2 | 2.5 - 4.6 mg/dL | MARISELA [...] + | [facility] | [address] | [place], [place] | [phone] | | [facility] | | [address] | | | - LABORATORY | | | | + + + + + | [facility] | [address] | [place], [place] | | | [facility] | | [address] | | | - LABORATORY | | | | + + + + + Parathyroid Hormone, Intact (06/23/2012 9:32 AM PDT) + + + + + + | Component | Value | Ref Range | Performed | Pathologist | | | | | At | Signature | + + + + + + | PTH INTACT | 53Comment: Testing | 12 - 88 pg/mL | [...] + | [facility] | [address] | [place] | [phone] | | [facility] | | [address] | | | - LABORATORY | | | | + + + + + | [facility] | [address] | [place], [place] | | | [facility] | | [address] [place] [address] | | | - LABORATORY | | [...] + | [facility] | [address] | [place] | [phone] | | [facility] | | [address] | | | - LABORATORY | | | | + + + + + | [facility] | [address] | [place], [place] | | | [facility] | | [id number] [place] [address] | | | - LABORATORY | | | | + + + + + Comprehensive Metabolic Panel (06/23/2012 9:32 AM PDT) [...] | | [facility] | | [facility] | [facility] | | | - LABORATORY | + + + + + + + + | Performing | Address | City/State/Zipcode | Phone Number | | Organization | | | | + + + + + | [facility] | [address] | [place] | [phone] | | [facility] | | [address] | | | - LABORATORY | | | | + + + + + | [facility] | [address] | [place], [place] | | | [facility] | | [address] | | | - LABORATORY [...] + | [facility] | [address] | [place], [place] | [phone] | | [facility] | | [address] | | | - LABORATORY | | | | + + + + + | [facility] | [address] | [place], [place] | | | [facility] | | [id number] [place] [address] | | | - LABORATORY | | [...] | | (moderate) | + + | ARTHRITIS, CHRONIC Arthropathy, unspecified, site unspecified | + + documented in this encounter"
--- OUTSIDE RECORDS SUMMARY | ~2019-09-12 | XMS | Encounter Summary ---
Demographics + + + | Address | [address] | | | [place] [address] | + + + | Home Phone [...] | [facility] | | | and [place] | + + + | Organization | [facility] | | [...] | | | | | [place] [address] | | + + + + + | Valentín Saleh | ECON | [phone] | | | | | [place] [address] | | + + + + + | Roberto Carlos Lennon | LEVI | Unknown | | + + + + + Care Team Providers + +------+ + | Care Bandoleer Straightener Stamper Name | Role | Phone | + +------+ + | Francois Pascal MD | PCP | | + +------+ + Encounter Details +--------+ + + + + | Date | Type | Department | Care Team | Description | +--------+ + + + + | 04/14/ | Hospital | [facility] | Francois Pascal, | Essential | | 2016 | Encounter | MED CTR LAB[facility] | [address] | hypertension; | | | | [address] [place] | [address] [place], | Diabetes mellitus | | | | [place], [place] | [place] [address] | due to underlying | | | | [address] | [phone] | condition with | | | | [phone] | | diabetic nephropathy | | | | | | (HCC); [...] | | | | mellitus) ([facility]) | | | | | | + + + +---------+ + + | lisinopril | | | 0 | 03/04/20 | | | (PRINIVIL,ZESTRIL) | | | | 15 | 6 | | 40 MG tablet | | | | | | + + + +---------+ + + | methotrexate 2.5 | TAKE 5 TABLETS BY | 20 | 1 | 02/25/20 | | | mg tablet | MOUTH ONCE WEEKLY. | tablet | | 15 | 6 [...] | | | | | | [place] [address] | | | | | | [phone] | | | | | | | | +--------+---------+ + + + documented as of this encounter Procedures + +--------+ + + + | Procedure Name | Priori | Date/Time | Associated Diagnosis | Comments | | | ty | | | | + +--------+ + + + | URINALYSIS WITH | Routin | 04/14/2015 | Type 2 diabetes | Results for this | | MICROSCOPIC IF | e | 8:47 AM | mellitus with other | procedure are in the | | INDICATED | | PST | diabetic kidney | results section. | | | | | complication (HCC) | | + +--------+ + + + | CBC WITH | Routin | 04/14/2015 | Essential | Results for this | | DIFFERENTIAL | e | 8:40 AM | hypertension | procedure are in the | | | | PST | | results section. | + +--------+ + + + | HEMOGLOBIN A1C | Routin | 04/14/2015 | Diabetes mellitus | Results for this | | | e | 8:40 AM | due to underlying | procedure are in the | | | | PST | condition with | results section. | | | | | diabetic nephropathy | | | | | | (HCC) | | + +--------+ + + + | COMPREHENSIVE | Routin | 04/14/2015 | Essential | Results for this | | METABOLIC PANEL | e | 8:40 AM | hypertension | procedure are in the | | | | PST | | results section. | + +--------+ + + + documented in this encounter Results Urinalysis with Microscopic if Indicated (04/14/2015 8:47 AM PST) + + + + + [...] - 1.030 | [facility] | | | [place], | | | [facility] | | [...] | | | Cells, | | | [facility] | | | Urine | | | MEDICAL | | | | | | CENTER - | | | | | | LABORATORY | | + + + + + + | Squamous | 0-2 | 0 - 2 /LPF | [facility] | | | Epithelial | | | [facility] | | | Cells, | | | [...] [address] | [place] | [phone] | | [facility] | | [address] | | | - LABORATORY | | | | + + + + + Hemoglobin A1C (04/14/2015 8:40 AM PST) + [...] [address] | [place] | [phone] | | [facility] | | [address] | | | - LABORATORY | | [...] + | [facility] | [address] | [place] | [phone] | | [facility] | | [address] | | | - LABORATORY | | [...] | | MEDICAL | | | | mL/min/[id number] than | | CENTER - | | [...] | 9.7 | 8.3 - 10.5 | [facility] | | | | | mg/dL | [facility] | | | | | | MEDICAL | | | | | | CENTER - | | | | | | LABORATORY | | + + + + + + | Albumin | 3.7 | 3.2 - 5.0 g/dL | [facility] [...] [address] | [place] | [phone] | | 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
--- OUTSIDE RECORDS SUMMARY | ~2019-09-12 | XMS | Encounter Summary ---
Demographics + + + | Address | [address] | | | [place] [address] | + + + | Home Phone [...] + | Author | [facility] | | | and [place]ana | + + + | Organization | [facility] [...] | | | | | [place] [address] | | + + + + + | Valentín Saleh | ECON | [address] | | | | | [place] [address] | | + + + + + | Roberto Carlos Lennon | LEVI | [place] | | + + + + + Care Team Providers + +------+ + | Care Planer Setter Name | Role | Phone | + +------+ + PCP | Unavailable | + +------+ + Encounter Details +--------+ + + + + | Date | Type | Department | Care Team | Description | +--------+ + + + + | 11/11/ | Hospital | [facility] | | | | 2006 | Encounter | MED CTR XRAY [address] | | | | | | [place] | | | | | | [place] [address] | | | | | | [phone] | | | +--------+ + + + [...] | | | | | | [place] [address] | | | | | | [phone] | | | | | | | | +--------+---------+ + + + documented as of this encounter Visit Diagnoses Not on filedocumented in this encounter"
--- OUTSIDE RECORDS SUMMARY | ~2019-09-12 | XMS | Encounter Summary ---
Demographics + + + | Address | [address] | | | [place] [address] | + + + | Home Phone [...] + | Author | [facility] | | | and [place] | + + + | Organization | [facility] | [...] | | | | | [place] [address] | | + + + + + | Valentín Saleh | ECON | [address] | | | | | [place] [address] | | + + + + + | Roberto Carlos Lennon | LEVI | [place] | | + + + + + Care Team Providers + +------+ + | Care Audit Spec Name | Role | Phone | + +------+ + PCP | Unavailable | + +------+ + Encounter Details +--------+ + + + + | Date | Type | Department | Care Team | Description | +--------+ + + + + | 09/21/ | Hospital | [facility] | | | | 1996 | Encounter | MED CTR EMERGENCY | | | | | | CENTER [address] | | | | | | [place] | | | | | | [address] | | | | | | [phone] | | | +--------+ + + + [...] | | | | | | [place] [address] | | | | | | [phone] | | | | | | | | +--------+---------+ + + + documented as of this encounter Visit Diagnoses Not on filedocumented in this encounter"
--- OUTSIDE RECORDS SUMMARY | ~2019-09-12 | XMS | Encounter Summary ---
Demographics + + + | Address | [address] | | | [place] [address] | + + + | Home Phone [...] | Author | [facility] | | | and [place] | + + + | Organization | [facility] [...] | | | | | [place] [address] | | + + + + + | Valentín Saleh | ECON | [address] | | | | | [place] [address] | | + + + + + | Roberto Carlos Lennon | LEVI | Unknown | | + + + + + Care Team Providers + +------+ + | Care Sourcing Intern Name | Role | Phone | [...] Description | +--------+--------+ + + + | 09/06/ | Refill | [facility] [place] [facility] | Francois Pascal, | Medication Refill | | 2013 | | MEDICINE [place] | [address] | | | | | [address] | [address] [place], | | | | | [place] | [place] [address] | | | | | [address] | [phone] | | | | | [phone] | | | +--------+--------+ + + + [...] | | | | | | [place] [address] | | | | | | [phone] | | | | | | | | +--------+---------+ + + + documented as of this encounter Visit Diagnoses Not on filedocumented in this encounter"
--- OUTSIDE RECORDS SUMMARY | ~2019-09-12 | XMS | Encounter Summary ---
Demographics + + + | Address | [address] | | | [place] [address] | + + + | Home Phone [...] | Author | [facility] | | | and [place] | + + + | Organization | [facility] | | | [...] | | | | | [place] [address] | | + + + + + | Valentín Saleh | ECON | [address] | | | | | [place] [address] | | + + + + + | Roberto Carlos Lennon | LEVI | Unknown | | + + + + + Care Team Providers + +------+ + | Care Assembler Metal Building Name | Role | Phone | + [...] | instability | [address] | | | | [address] | [address] | [place], | | | | | (ICD-10-CM) | [place] | [place] [address] | | | | | - [address] | [place] | Phone: | | | | | (ICD-9-CM) - | [address] | [phone] | | | | | Gait | Phone: | Fax: | | | | | instability | [phone] | [phone] | | | | | Procedures | Fax: | | | | | | pt eval | [phone] | | +--------+ + + + + + Encounter Details +--------+---------+ + + + | Date | Type | Department | Care Team | Description | +--------+---------+ + + + | 03/03/ | Office | [facility] | Francois Pascal, | Posture imbalance | | 2015 | Visit | MED CTR THERAPY PT | [address] | (Primary Dx); | | | | OP [address] | [address] [place], | Impaired functional | | | | [place] | [place] [address] | mobility, balance, | | | | [address] | [phone] | gait, and endurance; | | | | [phone] | | Left ankle pain | | | | | Kely Quinn B, PT | | | | | | [address] | | | | | | [place] | | | | | | [address] | | | | | | | [...] encounter Progress Notes Kely Green, PT - 03/03/2015 12:17 PM PSTFormatting of this note might be different from t he original. [facility] CTR THERAPY PT OP [address] [place] [address] Physical Therapy Daily Treatment Note Date: 03/03/2015 Patient Information Patient Name: Alyson Lennon Date of : 1930 Age: 84 y.o. Encounter Diagnoses Code Name Primary? R29.3 Posture imbalance Yes Z74.09 Impaired functional mobility, balance, gait, and endurance M25.572 Left ankle pain Date of Onset: Referring Provider: Francois Pascal MD Rehab Precautions Office Visit from 12/24/2014 in [facility] CTR THERAPY PT OP Rehab Precautions Precautions Comments fall risk Start Time: 1215 Stop time: 1300 Duration: 45 minutes Timed Treatment Codes: 45 minutes # of PT Visits to Date: 12 Subjective: pt reports that her left ankle continues to be painful and the limited ROM cont inues to restrict her walking/balance. Pain Assessment Pain Scale Used: NUMERIC Pain Rating Pre Assessment: 2 Pain Rating Post Assessment: 0 Location: left ankle Objective: Manual Therapy: left ankle grade III-IV mobs to increase DF/PF Exercise/Activity 12/24/14 01/08/15 01/13/15 01/23/15 03/03/15 Left ankle DF/PF 1x10 Left ankle "Alphabet" x x DF stretch on incline board 3x30 sec 3x30 sec 3x30 sec (stairs) HEP 3x30 sec 2x20 reps Rocker board 4x20 4x20 4x20 each, light resistance, Static balance light UE support 4x20 each, light resistance, Static balance light UE support Balance activites Blue foam: eyes closed, small [place], SLS 1-0 UE support squats 2x20 2x15 (on incline) 2x15 on incline Step lunge: left 1x20, OP 1x20, OP Heel raises 2x15 2x20 2x15 Gait activities 180 feet x3 Resisted gait; focus on heel-toe 400 feet, 4WW Focus on heel-toe 375 feet, SPC Heel-toe Increased gait speed 75 feet x2 SPC Improved heel-toe at end of session Left ankle ROM DF/PF: post 8-0-15 deg 20-0-10 deg 15-0-15 deg Pre:5-0-30 Post:20-0-30 Assessment: pt demonstrated significantly improve gait pattern after manual therapy; able t o take longer step length and improved heel-toe pattern. Pt also demonstrated improved chela nce after increased ROM with better ankle/stepping strategy; no LOB. Pt tolerated all activi ties well without increase in left ankle pain. Pt would benefit from cont. Therapy to progre ss left ankle ROM/strength in order to improve gait and dynamic balance to improve safety at home and in the community. Plan: Continue with manual therapy, strengthening, and gait/balance training. Electronically signed by: Kely Green PT, 03/03/2015 12:59 Patient Name: Alyson Lennon/: 1930/ documented in this encou nter Plan of Treatment +--------+---------+ + + + | Date | Type | Specialty | Care Team | Description | +--------+---------+ + + + | 12/06/ | Office | Cardiology | Stephenie Paul, | | | 2019 | Visit | | [address] | | | | | | [place], | | | | | | [place] [address] | | | | | | [phone] | | | | | | | [...]
--- OUTSIDE RECORDS SUMMARY | ~2019-09-12 | XMS | Encounter Summary ---
[...] + | Author | [facility] | | | and [place] | + + + | Organization | [facility] | | [...] | | | | | [place] [address] | | + + + + + | Valentín Saleh | ECON | [address] | | | | | [place] [address] | | + + + + + | Roberto Carlos Lennon | LEVI | Unknown | | + + + + + Care Team Providers + +------+ + | Care Rn Documentation Specialist Name | Role | Phone | + +------+ + | Francois Pascal MD | PCP | | + +------+ + Reason for Visit + +--------+ + | Reason | Onset | Comments | | | Date | | + +--------+ + | Medication Refill | 11/16/ | | | | 2012 | | + +--------+ + Encounter Details +--------+--------+ + + + | Date | Type | Department | Care Team | Description | +--------+--------+ + + + | 11/16/ | Refill | [facility] [place] [facility] | Francois Pascal, | Medication Refill | | 2012 | | MEDICINE [address] | [address] | | | | | [place], | [address] [place], | | | | | [place] [address] | [place] [address] | | | | | [phone] | [phone] | | | | | | | [...] Telephone Encounter - Nalini Hollins RN - 11/17/2012 1:[address] Pascal signed to [facility]. elephone Encounter - Airam Menjivar RN - 11/17/2012 9:04 AM PDTPatient returned call and states she gets her meds from [facility], patient tests her blood 4 times [address] Pascal told her to test 4 times daily. Brand of glucometer is One Touch Ultra, usually send 6 boxes of test strips but has to buy her own after that and sometimes use 8 boxes. ele phone Encounter - Nalini Hollins RN - 11/16/2012 1:39 PM PDTCalled patient, and left me ssage for her to call back. Need to find out where she gets her diabetic testing supplies, s uch as lancets, test strips, glucometer, and syringes from. Need to know what brand and model of supplies she uses. Also need to find out how many times a day she is testing her blood glucose, and which doct or told her to test that many times per day. documented in this encounter Plan of Treatment +--------+---------+ + + + | Date | Type | Specialty | Care Team | Description | +--------+---------+ + + + | 12/06/ | Office | Cardiology | Stephenie Paul, | | | 2019 | Visit | | [address] | | | | | | [place], | | | | | | [place] [address] | | | | | | [phone] | | | | | | | | +--------+---------+ + + + documented as of this encounter Visit Diagnoses Not on filedocumented in this encounter"
--- OUTSIDE RECORDS SUMMARY | ~2019-09-12 | XMS | Encounter Summary ---
Demographics + + + | Address | [address] | | | [place] [address] | + + + | Home Phone [...] | Author | [facility] | | | and [place] | + + + | Organization | [facility] | | [...] | | | | | [place] [address] | | + + + + + | Valentín Saleh | ECON | [address] | | | | | [place] [address] | | + + + + + | Roberto Carlos Lennon | LEVI | Unknown | | + + + + + Care Team Providers + +------+ + | Care Library Services Coordinator Name | Role | Phone [...] | 03/20/ | Refill | [facility] [place] | Stephenie Paul, | Medication Refill | | 2014 | | CARDIOLOGY [address] | MD [address] | | | | | [place], | [place], | | | | | [place] [address] | [place] [address] | | | | | [phone] | [phone] | | | | | | | [...] | | | | | | [place] [address] | | | | | | [phone] | | | | | | | | +--------+---------+ + + + documented as of this encounter Visit Diagnoses Not on filedocumented in this encounter"
--- OUTSIDE RECORDS SUMMARY | ~2019-09-12 | XMS | Encounter Summary ---
Demographics + + + | Address | [address] | | | [place] [address] | + + + | Home Phone [...] | Author | [facility] | | | and [place] | + + + | Organization | [facility] [...] | | | | | [place] [address] | | + + + + + | Valentín Saleh | ECON | [address] | | | | | [place] [address] | | + + + + + | Roberto Carlos Lennon | LEVI | Unknown | | + + + + + Care Team Providers + +------+ + | Care Calender Let Off Helper Name | Role | Phone | + +------+ + | Francois Pascal MD | PCP | | + +------+ + Encounter Details +--------+ + + + + | Date | Type | Department | Care Team | Description | +--------+ + + + + | 03/06/ | Hospital | [facility] | Francois Pascal, | Visit for screening | | 2015 | Encounter | MED CTR MAMMOGRAPHY | [address] | mammogram | | | | [address] | [address] [place], | | | | | [place] | [place] [address] | | | | | [address] | [phone] | | | | | [phone] | | | +--------+ + + + [...] | | | | | mellitus) (FORMERLY [facility]) | | | | | | + [...] | | | | | | [place] [address] | | | | | | [phone] | | | | | | | | +--------+---------+ + + + documented as of this encounter Procedures + +--------+ + + + | Procedure Name | Priori | Date/Time | Associated Diagnosis | Comments | | | ty | | | | + +--------+ + + + | TAWNYA TOMOSYN | Routin | 03/06/2015 | Visit for | Results for this | | SCREENING BILATERAL | e | 10:33 AM | screening mammogram | procedure are in the | | | | PST | | results section. | + +--------+ + + + documented in this encounter Results TAWNYA Tomosynthesis Screening Bilateral (03/06/2015 10:33 AM PST) + + | Specimen | + + | | + + + + + | Narrative | Performed At | + + + | BILATERAL DIGITAL SCREENING MAMMOGRAM WITH COMPUTER-AIDED DETECTION | [facility] | | AND TOMOSYNTHESIS 03/06/2015 10:33 AM CLINICAL HISTORY: Bilateral | [facility] | | screening exam. Asymptomatic, postmenopausal. Reported remote, | [facility] | | benign right breast biopsy (pathology unavailable). No reported | - IMAGING | | family history of breast cancer. COMPARISON: 2014 and previous | | | mammograms dating back to 2005. FINDINGS: Breast composition is | | | comprised of scattered fibroglandular densities. There are stable | | | asymmetries in both breasts. Scattered round and punctate | | | calcifications persist bilaterally and are unchanged. Extensive | | | vascular calcification is again visible as well. Comparison with prior | | | mammograms demonstrates stable benign findings. There is no | | | suspicious microcalcification or other evidence of malignancy. | | | Erwin images demonstrate no suspicious mass or architectural | | | distortion. Images were reviewed with CAD. IMPRESSION - 1. | | | BIRADS 2, BENIGN. RECOMMENDATION: NORMAL SCREENING INTERVAL. | | | Dictated and Signed by: Benedict Vigil MD Electronically signed: | | | 03/09/2015 7:28 AM | | + + + + + | Procedure Note | + + | Al, Rad Results In - 03/09/2015 7:31 AM PST BILATERAL DIGITAL SCREENING MAMMOGRAM | | WITH COMPUTER-AIDED DETECTION ANDTOMOSYNTHESIS 03/06/2015 10:33 AMCLINICAL HISTORY: | | Bilateral screening exam. Asymptomatic, postmenopausal. Reported remote, benign right | | breast biopsy (pathology unavailable). Noreported family history of breast | | cancer.COMPARISON: 2014 and previous mammograms dating back to 2005.FINDINGS: Breast | | composition is comprised of scattered fibroglandulardensities. There are stable | | asymmetries in both breasts. Scattered round andpunctate calcifications persist | | bilaterally and are unchanged. Extensivevascular calcification is again visible as | | well. Comparison with priormammograms demonstrates stable benign findings. There is no | | suspiciousmicrocalcification or other evidence of malignancy. Erwin images demonstrate | | no suspicious mass or architectural distortion. Imageswere reviewed with CAD.IMPRESSION | | -1. BIRADS 2, BENIGN.RECOMMENDATION: NORMAL SCREENING INTERVAL.Dictated and Signed by: | | Benedict Vigil MD Electronically signed: 03/09/2015 7:28 AM | |mammograms demonstrates stable benign findings. There is no suspicious | |microcalcification or other evidence of malignancy. | | | |Erwin images demonstrate no suspicious mass or architectural distortion. Images | |were reviewed with CAD. | | | |IMPRESSION - | |1. BIRADS 2, BENIGN. | | | |RECOMMENDATION: NORMAL SCREENING INTERVAL. | | | |Dictated and Signed by: Benedict Vigil MD | | Electronically signed: 03/09/2015 7:28 AM | + + + + + + + | Performing | Address | City/State/Zipcode | Phone Number | | Organization | | | | + + + + + | [facility] | [address] | [place] | [phone] | | [facility] | | [address] | | | - IMAGING | | | | + + + + + documented in this encounter Visit Diagnoses + + | Diagnosis | + + | Visit for screening mammogram Other screening mammogram | + + documented in this encounter"
--- OUTSIDE RECORDS SUMMARY | ~2019-09-12 | XMS | Encounter Summary ---
Demographics + + + | Address | [address] | | | [place] [address] | + + + | Home Phone [...] | Author | [facility] | | | and [place] | + + + | Organization | [facility] | | [...] | | | | | [place] [address] | | + + + + + | Valentín Saleh | ECON | [address] | | | | | [place] [address] | | + + + + + | Roberto Carlos Lennon | LEVI | [place] | | + + + + + Care Team Providers + +------+ + | Care Clinical Program Consultant Name | Role | Phone | + +------+ + PCP | Unavailable | + +------+ + Encounter Details +--------+ + + + + | Date | Type | Department | Care Team | Description | +--------+ + + + + | 04/27/ | Hospital | [facility] | | | | 2007 | Encounter | MED CTR LABORATORY | | | | | | [address] | | | | | | [place] | | | | | | [address] | | | | | | [phone] | | | +--------+ + + + [...] | | | | | | [place] [address] | | | | | | [phone] | | | | | | | | +--------+---------+ + + + documented as of this encounter Visit Diagnoses Not on filedocumented in this encounter"
--- OUTSIDE RECORDS SUMMARY | ~2019-09-12 | XMS | Encounter Summary ---
Demographics + + + | Address | [address] | | | [place] [address] | + + + | Home Phone [...] Author | [facility] | | | and [place] | + + + | Organization | [facility] | [...] | | | | | [place] [address] | | + + + + + | Valentín Saleh | ECON | [address] | | | | | [place] [address] | | + + + + + | Roberto Carlos Lennon | LEVI | Unknown | | + + + + + Care Team Providers + +------+ + | Care Prevention Specialist Name | Role | Phone | + +------+ + | Francois Pascal MD | PCP | | + +------+ + Reason for Visit +--------+--------+ + | Reason | Onset | Comments | | | Date | | +--------+--------+ + | DME | 09/29/ | | | | 2018 | | +--------+--------+ + Encounter Details +--------+ + + + + | Date | Type | Department | Care Team | Description | +--------+ + + + + | 09/29/ | Telephone | [facility] | Francois Pascal, | DME | | 2018 | | MEDICINE [place] | [address] | | | | | [address] | [address] [place], | | | | | [place] | [place] [address] | | | | | [address] | [phone] | | | | | [phone] | | | +--------+ + + + [...] this encounter Miscellaneous Notes Telephone Encounter - Gayle Wyman - 10/02/2018 4:19 PM PDTPatient scheduled.Sadia craig signed by Gayle Wyman at 10/02/2018 4:21 PM PDTTelephone Encounter - Caprice Major RN - 10/02/2018 4:11 PM PDTTamara, [facility], calls requ esting the same thing as patient's son did, a hospital bed and wheelchair. Told her that Dr Pascal would like to see the patient before ordering these. She states she will call Roberto Carlos and Leyda and tell them so they can schedule an appointment f or the pateint. Telephone Encounter - Yamileth Bah RN - 09/29/2018 4:52 PM PDTMedicare requires offi ce visit in order to cover hospital bed. Patient needs face to face for documentation purpos es. Please call and schedule appointment. Needs to be with Dr. Pascal. elephone Encounter - Roshni Nance - 3:50 PM PDTJohn patient's son called stating patient is transitioning [facility] or to [facility]. Roberto Carlos is asking for a prescription for a hospital bed with rails an d a wheel chair. Please advise. P M PDTdocumented in this encounter Plan of Treatment +--------+---------+ + + + | Date | Type | Specialty | Care Team | Description | +--------+---------+ + + + | 12/06/ | Office | Cardiology | Stephenie Paul, | | | 2019 | Visit | | [address] | | | | | | [place], | | | | | | [place] [address] | | | | | | [phone] | | | | | | | | +--------+---------+ + + + documented as of this encounter Visit Diagnoses Not on filedocumented in this encounter"
--- OUTSIDE RECORDS SUMMARY | ~2019-09-12 | XMS | Encounter Summary ---
Demographics + + + | Address | [address] | | | [place] [address] | + + + | Home Phone [...] Author | [facility] | | | and [place] | + + + | Organization | [facility] | | | and [place] | + + + | Address | Unknown | + + + | Phone | Unavailable | + + + Support + + + + + | Name | Relationship | Address | Phone | + + + + + | Sigrid Lennon | ECON | [address] | | | | | [place] [address] | | + + + + + | Valentín Saleh | ECON | [address] | | | | | [place] [address] | | + + + + + | Roberto Carlos Lennon | LEVI | Unknown | | + + + + + Care Team Providers + +------+ + | Care Distribution Lineman Name | Role | Phone | + [...] 09/14/ | Refill | [facility] | Francois Pascal, | Medication Refill | | 2013 | | MEDICINE [place] | [address] | | | | | [address] | [address] [place], | | | | | [place] | [place] [address] | | | | | [address] | [phone] | | | | | [phone] | | | +--------+--------+ + + + [...] | | | | | | [place] [address] | | | | | | [phone] | | | | | | | | +--------+---------+ + + + documented as of this encounter Visit Diagnoses Not on filedocumented in this encounter"
--- OUTSIDE RECORDS SUMMARY | ~2019-09-12 | XMS | Encounter Summary ---
Demographics + + + | Address | [address] | | | [place] [address] | + + + | Home Phone [...] Author | [facility] | | | and [place] | + + + | Organization | [facility] [...] | | | | | [place] [address] | | + + + + + | Valentín Saleh | ECON | [address] | | | | | [place] [address] | | + + + + + | Roberto Carlos Lennon | LEVI | Unknown | | + + + + + Care Team Providers + +------+ + | Care College Admissions Counselor Name | Role | Phone | + +------+ + | Francois Pascal MD | PCP | | + +------+ + Encounter Details +--------+ + + + + | Date | Type | Department | Care Team | Description | +--------+ + + + + | 06/02/ | Hospital | [facility] | [place], | CHRONIC KIDNEY | | 2016 | Encounter | MED CTR LABORATORY | [address] | DISEASE STAGE III | | | | [address] [place] | [address] [facility] | (MODERATE); Vitamin | | | | [place], [place] | [address] [place], [place] | D deficiency | | | | [address] | [address] | | | | | [phone] | | | +--------+ + + + [...] | 12/06/ | Office | Cardiology | Makruparoz Rupamak, | | | 2019 | Visit | | [address] | | | | | | [place], | | | | | | [place] [address] | | | | | | [phone] | | | | | | | [...] + | [facility] | [address] | [place] | [phone] | | [facility] | | [address] | | | - LABORATORY | | [...] mL/min/1.73m2 | [facility] | | | [facility] | | | MEDICAL | | | [...] + | [facility] | [address] | [place], [place] | [phone] | | [facility] | | [address] | | | - LABORATORY | | [...]
--- OUTSIDE RECORDS SUMMARY | ~2019-09-12 | XMS | Encounter Summary ---
Demographics + + + | Address | [address] | | | [place] [address] | + + + | Home Phone [...] + + | Author | [facility] | | | and Clarkeana | + + + | Organization | [facility] [...] | | | | | [place] [address] | | + + + + + | Valentín Saleh | ECON | [address] | | | | | [place] [address] | | + + + + + | Roberto Carlos Lennon | LEVI | Unknown | | + + + + + Care Team Providers + +------+ + | Care Hydro Electric Station Operator Name | Role | Phone | + +------+ + | Francois Pascal MD | PCP | | + +------+ + Reason for Visit + +--------+ + | Reason | Onset | Comments | | | Date | | + +--------+ + | Imaging Only | 11/22/ | | | | 2017 | | + +--------+ + Encounter Details +--------+ + + + + | Date | Type | Department | Care Team | Description | +--------+ + + + + | 11/22/ | Telephone | [facility] | Francois Pascal, | Imaging Only | | 2017 | | MEDICINE [place] | [address] | | | | | [address] | [address] [place], | | | | | [place] | [place] [address] | | | | | [address] | [phone] | | | | | [phone] | | | +--------+ + + + [...] Telephone Encounter - Rashmi Hall RN - 11/22/2017 9:30 AM PDTTelephone [facility] to [facility]. Voice mail, left message to call back.Electronically signed by DEISY Gonzáles 11/22/2017 9:30 AM PDTTelephone Encounter - Nohelia Patel - 11/22/2017 8:44 AM PDTR eceived a call from [facility] in Imaging regarding the patient. Mariposa stated the patient's husb and just called to set the patient up for a left leg venous ultrasound and the soonest they can get her in is next and they are needing to know if that is soon enough. Please call Mariposa to advise, [phone]. 18 8:45 AM PDTdocumented in this encounter Plan of [...] | | | | | | [place] [address] | | | | | | [phone] | | | | | | | | +--------+---------+ + + + documented as of this encounter Visit Diagnoses Not on filedocumented in this encounter"
--- OUTSIDE RECORDS SUMMARY | ~2019-09-12 | XMS | Encounter Summary ---
Demographics + + + | Address | [address] | | | [place] [address] | + + + | Home Phone [...] Author | [facility] | | | and Clarkeana | + + + | Organization | [facility] | | | and [...] | | | | | [place] [address] | | + + + + + | Valentín Saleh | ECON | [address] | | | | | [place] [address] | | + + + + + | Roberto Carlos Lennon | LEVI | [place] | | + + + + + Care Team Providers + +------+ + | Care Piece Meat Trimmer Name | Role | Phone | + +------+ + PCP | Unavailable | + +------+ + Encounter Details +--------+ + + + + | Date | Type | Department | Care Team | Description | +--------+ + + + + | 09/05/ | Hospital | [facility] | Roberto Carlos Tello, | | | 1995 | Encounter | MED CTR XRAY [address] | [address] [facility] | | | | | [place] | [place] | | | | | [place] [address] | [address] | | | | | [phone] | | | +--------+ + + + [...] | | | | | | [place] [address] | | | | | | [phone] | | | | | | | | +--------+---------+ + + + documented as of this encounter Visit Diagnoses Not on filedocumented in this encounter"
--- OUTSIDE RECORDS SUMMARY | ~2019-09-12 | XMS | Encounter Summary ---
Demographics + + + | Address | [address] | | | [place] [address] | + + + | Home Phone [...] + | Author | [facility] | | | and [place]ana | + + + | Organization | [facility] | | | and [...] | | | | | [place] [address] | | + + + + + | Valentín Saleh | ECON | [phone] | | | | | [place] [address] | | + + + + + | Roberto Carlos Lennon | LEVI | Unknown | | + + + + + Care Team Providers + +------+ + | Care Mds Nurse Name | Role | Phone | + +------+ + | Francois Pascal MD | PCP | | + +------+ + Encounter Details +--------+ + + + + | Date | Type | Department | Care Team | Description | +--------+ + + + + | 06/28/ | Abstract | [facility] [place] | [place], | | | 2012 | | NEPHROLOGY [address] | [address] | | | | | [facility] [address] | [address] [facility] | | | | | [place], [place] | [address] [place] | | | | | [address] | [address] | | | | | [phone] | | | +--------+ + + + [...] | | | | | | [place] [id number] | | | | | | [phone] | | | | | | | | +--------+---------+ + + + documented as of this encounter Visit Diagnoses Not on filedocumented in this encounter"
--- OUTSIDE RECORDS SUMMARY | ~2019-09-12 | XMS | Encounter Summary ---
Demographics + + + | Address | [address] | | | [place] [address] | + + + | Home Phone [...] + | Author | [facility] | | | and [place]ana | + + + | Organization | [facility] | | [...] | | | | | [place] [address] | | + + + + + | Valentín Saleh | ECON | [address] | | | | | [place] [address] | | + + + + + | Roberto Carlos Lennon | LEVI | Unknown | | + + + + + Care Team Providers + +------+ + | Care Coder Name | Role | Phone | + [...] Description | +--------+--------+ + + + | 10/03/ | Refill | [facility] [place] [facility] | Francois Pascal, | Medication Refill | | 2012 | | MEDICINE [place] | [address] | | | | | [address] | [address] [place], | | | | | [place] | [place] [address] | | | | | [address] | [phone] | | | | | [phone] | | | +--------+--------+ + + + [...] | | | | | | [place] [address] | | | | | | [phone] | | | | | | | | +--------+---------+ + + + documented as of this encounter Visit Diagnoses Not on filedocumented in this encounter"
--- OUTSIDE RECORDS SUMMARY | ~2019-09-12 | XMS | Encounter Summary ---
Demographics + + + | Address | [address] | | | [place] [address] | + + + | Home Phone [...] | Author | [facility] | | | and Clarkeana | + + + | Organization | [facility] | [...] | | | | | [place] [address] | | + + + + + | Valentín Saleh | ECON | [address] | | | | | [place] [address] | | + + + + + | Roberto Carlos Lennon | LEVI | Unknown | | + + + + + Care Team Providers + +------+ + | Care Chemistry Professor Name | Role | Phone | [...] | 03/27/ | Refill | [facility] [place] [facility] | Francois Pascal, | Medication Refill | | 2013 | | MEDICINE [place] | [address] | | | | | [address] | [address] [place], | | | | | [place] | [place] [address] | | | | | [address] | [phone] | | | | | [phone] | | | +--------+--------+ + + + [...] | | | | | | [place] [address] | | | | | | [phone] | | | | | | | | +--------+---------+ + + + documented as of this encounter Visit Diagnoses Not on filedocumented in this encounter"
--- OUTSIDE RECORDS SUMMARY | ~2019-09-12 | XMS | Clinical Summary ---
Demographics + + + | Address | [address] | | | [place] [address] | + + + | Home Phone | | + + + | Preferred Language | Unknown | + + + | Marital Status | Single | + + + | Mormon Affiliation | UNK | + + + [...] | | | | | [place] [address] | | + + + + + | None None | ECON | Unknown | Unavailable | + + + + + Care Team Providers + +------+ + | Care Geophysical Computer Name | Role | Phone | + +------+ + PCP | Unavailable | + +------+ + Source Comments UBALDO is fully live on both [facility] Ambulatory and [facility] InPatient.Counts Include 234 Beds At [facility] Allergies No Known Allergies Medications [...] | MODA | xxxxxxxxx | Effect | [phone] | [address] | [address] | | | [address] | | geovany | 4 | [address] | | | | [place] | | for | | [place], | | | | | | all | | [place] [address] | | | | | | dates [...] | | | | | | | [address] | | + +--------+ +--------+ + +--------+ [...] | 1931 | [phone] | [place] [address] | | | ian | | | 1 (Home) | | + +--------+ +--------+ + +"
--- OUTSIDE RECORDS SUMMARY | ~2019-09-12 | XMS | Encounter Summary ---
Demographics + + + | Address | [address] | | | [place] [address] | + + + | Home Phone [...] | Author | [facility] | | | and Clarkeana | + + + | Organization | [facility] [...] | | | | | [place] [address] | | + + + + + | Valentín Saleh | ECON | [address] | | | | | [place] [address] | | + + + + + | Roberto Carlos Lennon | LEVI | Unknown | | + + + + + Care Team Providers + +------+ + | Care Urban Renewal Manager Name | Role | Phone | [...] + + | 03/29/ | Office | [facility] | Francois Pascal, | OSTEOARTHRITIS, | | 2012 | Visit | MEDICINE [place] | [address] | ANKLE, LEFT (Primary | | | | [address] | [address] [place], | Dx); HYPERTENSION | | | | [place] | [place] [address] | NEC; Hyperlipidemia; | | | | [address] | [phone] | DM (diabetes | | | | [phone] | | mellitus) (HCC); | | | [...] VSD Father 50 Pneumonia Family Hx of [place]'s chorea Sister and 2 brothers: CAD, Airam's Disease to [place] - with 2 Healthy Children No kidney disease in family. Social History: Reviewed history from 08/11/2011 and no changes required: Born in [facility] for 47 [...] | | | | | | [place] [address] | | | | | | [phone] | | | | | | | [...] At | + + + | | [facility] | | | [facility] | | | - LABORATORY | + + + + + + + + | Performing | Address | City/State/Zipcode | Phone Number | | Organization | | | | + + + + + | [facility] | [address] | [place] | [phone] | | [facility] | | [address] | | | - LABORATORY | | | | + + + + + | [facility] | [address] | [place], [place] | | | [facility] | | [address] | | | - LABORATORY | [...] (H)Comment: | 4.3 - 5.8 % | [facility] | | | A1c | DIABETIC PATIENT RANGES: | | [facility] | | | | 6.2-7.0% = Well [...] [address] | [place] | [phone] | | [facility] | | [address] | | | - LABORATORY | | | | + + + + + | [facility] | [address] | [place], [place] | | | [facility] | | [address], [facility] | | | - LABORATORY | [...]
--- OUTSIDE RECORDS SUMMARY | ~2019-09-12 | XMS | Encounter Summary ---
Demographics + + + | Address | [address] | | | [place] [address] | + + + | Home Phone [...] Author | [facility] | | | and Clarkeana | + + + | Organization | [facility] [...] | | | | | [place] [address] | | + + + + + | Valentín Saleh | ECON | [address] | | | | | [place] [address] | | + + + + + | Roberto Carlos Lennon | LEVI | Unknown | | + + + + + Care Team Providers + +------+ + | Care Acquisitions Editor Name | Role | Phone | [...] Refill | | 2015 | | MEDICINE [facility] [place] | [address] | | | | | AVE [place], | [address] [place], | | | | | [place] [address] | [place] [address] | | | | | [phone] | [phone] | | | | | | | [...] | | | | | | [place] [address] | | | | | | [phone] | | | | | | | [...]
--- OUTSIDE RECORDS SUMMARY | ~2019-09-12 | XMS | Encounter Summary ---
Demographics + + + | Address | [address] | | | [place] [address] | + + + | Home Phone [...] Author | [facility] | | | and Clarkeana | + + + | Organization | [facility] | [...] | | | | | [place] [address] | | + + + + + | Valentín Saleh | ECON | [address] | | | | | [place] [address] | | + + + + + | Roberto Carlos Lennon | LEVI | Unknown | | + + + + + Care Team Providers + +------+ + | Care Box Toe Maker Name | Role | Phone | [...] Refill | | 2014 | | MEDICINE [place] | [address] | | | | | [address] | [address] [place], | | | | | [place] | [place] [address] | | | | | [address] | [phone] | | | | | [phone] | | | +--------+--------+ + + + [...] | | | | | | [place] [address] | | | | | | [phone] | | | | | | | | +--------+---------+ + + + documented as of this encounter Visit Diagnoses Not on filedocumented in this encounter"
--- OUTSIDE RECORDS SUMMARY | ~2019-09-12 | XMS | Encounter Summary ---
Demographics + + + | Address | [address] | | | [place] [address] | + + + | Home Phone [...] Author | [facility] | | | and Clarkeana | + + + | Organization | [facility] | [...] | | | | | [place] [address] | | + + + + + | Valentín Saleh | ECON | [address] | | | | | [place] [address] | | + + + + + | Roberto Carlos Lennon | LEVI | Unknown | | + + + + + Care Team Providers + +------+ + | Care Pricer Name | Role | Phone | + [...] | 12/29/ | Refill | [facility] [place] [facility] | Francois Pascal, | Medication Refill | | 2012 | | MEDICINE [place] | [address] | | | | | [address] | [address] [place], | | | | | [place] | [place] [address] | | | | | [address] | [phone] | | | | | [phone] | | | +--------+--------+ + + + [...] | | | | | | [place] [address] | | | | | | [phone] | | | | | | | | +--------+---------+ + + + documented as of this encounter Visit Diagnoses Not on filedocumented in this encounter"
--- OUTSIDE RECORDS SUMMARY | ~2019-09-12 | XMS | Encounter Summary ---
Demographics + + + | Address | [address] | | | [place] [address] | + + + | Home Phone [...] Author | [facility] | | | and Clarkeana | + + + | Organization | [facility] [...] | | | | | [place] [address] | | + + + + + | Valentín Saleh | ECON | [address] | | | | | [place] [address] | | + + + + + | Roberto Carlos Lennon | LEVI | Unknown | | + + + + + Care Team Providers + +------+ + | Care Plater Printed Circuit Board Panels Name | Role | Phone | + +------+ + | Francois Pascal MD | PCP | | + +------+ + Reason for Visit + + + | Reason | Comments | + + + | Follow-up | 3 month | + + + | Hypertension | | + + + Encounter Details +--------+---------+ + + + | Date | Type | Department | Care Team | Description | +--------+---------+ + + + | 09/10/ | Office | [facility] | Francois Pascal, | Essential | | 2015 | Visit | MEDICINE [address] | [address] | hypertension | | | | AVE [place], | [address] [place], | (Primary Dx); DM | | | | [place] [address] | [place] [address] | (diabetes mellitus); | | | | [phone] | [phone] | CHRONIC KIDNEY | | | | | | DISEASE STAGE III | | | | | | (MODERATE); Primary | | | | | | [...] + | Blood Pressure | 110/60 | 09/10/2014 1:17 PM | | | | | PDT | | + + + + + | Pulse | 64 | 09/10/2014 1:17 PM | | | | | PDT | | + + + + + | Temperature | 36.4 C (97.6 F) | 09/10/2014 1:17 PM | | | | | PDT | | + + + + + | Respiratory Rate | 16 | 09/10/2014 1:17 PM | | | | | PDT | | + + + + + | Oxygen Saturation | 94% | 09/10/2014 1:17 PM | | | | | PDT | | + + + + + | Inhaled Oxygen | - | - | | | Concentration | | | | + + + + + | Weight | 74.6 kg (164 lb 6.4 | 09/10/2014 1:17 PM | | | | oz) | PDT | | + + + + + | Height | 162.6 cm (5' 4") | 09/10/2014 1:17 PM | | | | | PDT | | + + + + + | Body Mass Index | 28.22 | 09/10/2014 1:17 PM | | | | | PDT | | + + + + + documented in this encounter Progress Notes Francois Pascal MD - 09/10/2014 1:29 PM PDTFormatting of this note might be different f rom the original. Subjective: Patient ID: Alyson Lennon is a 83 y.o. female. HPI Left ankle OA, post fracture years ago. Recent injection with Dr Valero helped temporarily to s ome degree. Her ankle still hurts. She is not doing any [...] she is compliant with h er medications. Past Medical History: Reviewed history from [...] VSD Father 50 Pneumonia Family Hx of Brooks's chorea Sister and 2 brothers: CAD, Brooks's Disease to [place] - with 2 Healthy Children No kidney disease in family. Social History: Reviewed history from 08/11/2011 and no changes required: Born in [facility] for 46 years. and Remarried 2 [...] pain, no joint swelling and No arthralgias. But some joint pain Skin: Neg for color [...] Lymph, no cervical, axillary, inguinal adenopathy Musculoskeletal, left ankle with gross deformity or loss or range of motion Skin, no gross lesions Assessment: 1. Essential hypertension 2. DM (diabetes mellitus) 3. CHRONIC KIDNEY DISEASE STAGE III (MODERATE) 4. Primary osteoarthritis of left ankle Plan: She looks and feels fine. Her labs are due Her ankle still hurts but she Declines a pain medication. She uses tylenol on occasion. documented in this encounter Plan of Treatment +--------+---------+ + + + | Date | Type | Specialty | Care Team | Description | +--------+---------+ + + + | 12/06/ | Office | Cardiology | Stephenie Paul, | | | 2019 | Visit | | MD [address] | | | | | | [place], | | | | | | [place] [address] | | | | | | [phone] | | | | | | | | +--------+---------+ + + + documented as of this encounter Results Hemoglobin A1C (01/09/2015 9:27 [...] | Estimated | 174 | mg/dL | [facility] | | | [...] [address] | [place] | [phone] | | [facility] | | [address] | | | - LABORATORY | | [...] | 37 (L)Comment: | >=60 | [facility] | | | | GLOMERULAR FILTRATION | mL/min/1.73m2 | [facility] | | | [place] | RATE,ESTIMATED | | MEDICAL | | | | mL/min/1.29k3Golz than | | CENTER - | | [...] | [address] | [place] | [phone] | | [facility] | | [address] | | | - LABORATORY | | [...] | | | Cells | | | [facility] | | | | | | MEDICAL | | | | | | CENTER - | | | | | | LABORATORY | | + + + + + + | Red Blood | 3.95 | 3.70 - 5.20 | [facility] | | | Cells | | M/uL | [facility] | | | | | | [...] | | Eosinophils | | K/uL | [facility] | [...] [address] | [place] | [phone] | | [facility] | | [address] | | | - LABORATORY | | [...]
--- OUTSIDE RECORDS SUMMARY | ~2019-09-12 | XMS | Encounter Summary ---
Demographics + + + | Address | [address] | | | [place] [address] | + + + | Home Phone [...] Author | [facility] | | | and Clarkeana | + + + | Organization | [facility] | [...] | | | | | [place] [address] | | + + + + + | Valentín Saleh | ECON | [address] | | | | | [place] [address] | | + + + + + | Roberto Carlos Lennon | LEVI | Unknown | | + + + + + Care Team Providers + +------+ + | Care Route Sales Driver Name | Role | Phone | [...] | instability | [address] | [address] | | | | [address] | [address] | [address] | [place], | | | | | (ICD-10-CM) | [place] | [place] [address] | | | | | - [address] | [place] | Phone: | | | | | (ICD-9-CM) - | [address] | [phone] | | | | | Gait | Phone: | Fax: | | | | | instability | [phone] | [phone] | | | | | Procedures | Fax: | | | | | | pt eval | [phone] | | +--------+ + + + + + Encounter Details +--------+---------+ + + + | Date | Type | Department | Care Team | Description | +--------+---------+ + + + | 03/03/ | Office | [facility] | Francois Pascal, | Posture imbalance | | 2015 | Visit | MED CTR THERAPY PT | [address] | (Primary Dx); | | | | OP [address] | [address] [place], | Impaired functional | | | | [place] | [place] [address] | mobility, balance, | | | | [address] | [phone] | gait, and endurance; | | | | [phone] | | Left ankle pain | | | | | Kely Quinn B, PT | | | | | | [address] | | | | | | [place] | | | | | | [address] | | | | | | | [...] might be different from t he original. [facility] CTR THERAPY PT OP [address] [place] [address] Physical Therapy Daily Treatment Note Date: 03/03/2015 Patient Information Patient Name: Alyson Lennon Date of : 1930 Age: 84 y.o. Encounter Diagnoses Code Name Primary? R29.3 Posture imbalance Yes Z74.09 Impaired functional mobility, balance, gait, and endurance M25.572 Left ankle pain Date of Onset: Referring Provider: Francois Pascal MD Rehab Precautions Office Visit from 12/24/2014 in [facility] CTR THERAPY PT OP Rehab Precautions [...] | 2019 | Visit | | [address] | | | | | | [place], | | | | | | [place] [address] | | | | | | [phone] | | | | | | | [...]
--- OUTSIDE RECORDS SUMMARY | ~2019-09-12 | XMS | Encounter Summary ---
Demographics + + + | Address | [address] | | | [place] [address] | + + + | Home Phone [...] | | | | | [place] [address] | | + + + + + | Valentín Saleh | ECON | [address] | | | | | [place] [address] | | + + + + + | Roberto Carlos Lennon | LEVI | [place] | | + + + + + Care Team Providers + +------+ + | Care Nuclear Physics Teacher Name | Role | Phone | + +------+ + PCP | Unavailable | + +------+ + Encounter Details +--------+ + + + + | Date | Type | Department | Care Team | Description | +--------+ + + + + | 11/25/ | Hospital | [facility] | | | | 2006 | Encounter | MED CTR XRAY [address] | | | | | | [place] | | | | | | [place] [address] | | | | | | [phone] | | | +--------+ + + + [...] | | | | | | [place] [address] | | | | | | [phone] | | | | | | | | +--------+---------+ + + + documented as of this encounter Visit Diagnoses Not on filedocumented in this encounter"
--- OUTSIDE RECORDS SUMMARY | ~2019-09-12 | XMS | Encounter Summary ---
Demographics + + + | Address | [address] | | | [place] [address] | + + + | Home Phone [...] Author | [facility] | | | and Clarkeana | + + + | Organization | [facility] [...] | | | | | [place] [address] | | + + + + + | Valentín Saleh | ECON | [address] | | | | | [place] [address] | | + + + + + | Roberto Carlos Lennon | LEVI | Unknown | | + + + + + Care Team Providers + +------+ + | Care Rattle Leak And Squeak Repairer Name | Role | Phone | [...] + + | 08/17/ | Refill | [facility] | Analisa Jenkins, | Medication Refill | | 2012 | | MEDICINE [place] | [address] | | | | | [address] | [place] | | | | | [place] | [address] | | | | | [address] | | | | | | [phone] | | | +--------+--------+ + + + [...] | | | | | | [place] [address] | | | | | | [phone] | | | | | | | | +--------+---------+ + + + documented as of this encounter Visit Diagnoses Not on filedocumented in this encounter"
--- OUTSIDE RECORDS SUMMARY | ~2019-09-12 | XMS | Encounter Summary ---
Demographics + + + | Address | [address] | | | [place] [address] | + + + | Home Phone [...] Author | [facility] | | | and [place] | + + + | Organization | [facility] | | [...] | | | | | [place] [address] | | + + + + + | Valentín Saleh | ECON | [address] | | | | | [place] [address] | | + + + + + | Roberto Carlos Lennon | LEVI | [place] | | + + + + + Care Team Providers + +------+ + | Care Hollow Core Door Frame Assembler Name | Role | Phone | + +------+ + PCP | Unavailable | + +------+ + Encounter Details +--------+ + + + + | Date | Type | Department | Care Team | Description | +--------+ + + + + | 11/01/ | Hospital | [facility] | | | | 2002 | Encounter | MED CTR LABORATORY | | | | | | [address] | | | | | | [place] | | | | | | [address] | | | | | | [phone] | | | +--------+ + + + [...] | | | | | | [place] [address] | | | | | | [phone] | | | | | | | | +--------+---------+ + + + documented as of this encounter Visit Diagnoses Not on filedocumented in this encounter"
--- OUTSIDE RECORDS SUMMARY | ~2019-09-12 | XMS | Encounter Summary ---
Demographics + + + | Address | [address] | | | [place] [address] | + + + | Home Phone [...] Author | [facility] | | | and [place] | + + + | Organization | [facility] | | [...] | | | | | [place] [address] | | + + + + + | Valentín Saleh | ECON | [address] | | | | | [place] [address] | | + + + + + | Roberto Carlos Lennon | LEVI | Unknown | | + + + + + Care Team Providers + +------+ + | Care Muleser Name | Role | Phone | + [...] | 02/20/ | Refill | [facility] [place] [facility] | Francois Pascal, | Medication Refill | | 2013 | | MEDICINE [place] | [address] | | | | | [address] | [address] [place], | | | | | [place] | [place] [address] | | | | | [address] | [phone] | | | | | [phone] | | | +--------+--------+ + + + [...] | | | | | | [place] [address] | | | | | | [phone] | | | | | | | | +--------+---------+ + + + documented as of this encounter Visit Diagnoses Not on filedocumented in this encounter"
--- OUTSIDE RECORDS SUMMARY | ~2019-09-12 | XMS | Encounter Summary ---
Demographics + + + | Address | [address] | | | [place] [address] | + + + | Home Phone [...] + | Author | [facility] | | | and [place] | + + + | Organization | [facility] [...] | | | | | [place] [address] | | + + + + + | Valentín Saleh | ECON | [address] | | | | | [place] [address] | | + + + + + | Roberto Carlos Lennon | LEVI | Unknown | | + + + + + Care Team Providers + +------+ + | Care Account Executive Key Accounts Name | Role | Phone | + [...] | 11/13/ | Refill | [facility] [place] [facility] | Francois Pascal, | Medication Refill | | 2012 | | MEDICINE [place] | [address] | | | | | [address] | [address] [place], | | | | | [place] | [place] [address] | | | | | [address] | [phone] | | | | | [phone] | | | +--------+--------+ + + + [...] | | | | | | [place] [address] | | | | | | [phone] | | | | | | | | +--------+---------+ + + + documented as of this encounter Visit Diagnoses + + | Diagnosis | + + | ARTHRITIS, CHRONIC - Primary Arthropathy, unspecified, site unspecified | + + documented in this encounter"
--- OUTSIDE RECORDS SUMMARY | ~2019-09-12 | XMS | Encounter Summary ---
Demographics + + + | Address | [address] | | | [place] [address] | + + + | Home Phone [...] [facility] | | | and [place] | + + + | Organization | [facility] | | [...] | | | | | [place] [address] | | + + + + + | Valentín Saleh | ECON | [address] | | | | | [place] [address] | | + + + + + | Roberto Carlos Lennon | LEVI | Unknown | | + + + + + Care Team Providers + +------+ + | Care Patient Service Technician Pst Name | Role | Phone | + [...] | 08/02/ | Refill | [facility] [place] [facility] | Francois Pascal, | Medication Refill | | 2012 | | MEDICINE [place] | [address] | | | | | [address] | [address], | | | | | [place] | [place] [address] | | | | | [address] | [phone] | | | | | [phone] | | | +--------+--------+ + + + [...] | | | | | | [place] [address] | | | | | | [phone] | | | | | | | | +--------+---------+ + + + documented as of this encounter Visit Diagnoses Not on filedocumented in this encounter"
--- OUTSIDE RECORDS SUMMARY | ~2019-09-12 | XMS | Encounter Summary ---
Demographics + + + | Address | [address] | | | [place] [address] | + + + | Home Phone [...] [facility] | | | and [place] | + + + | Organization | [facility] | [...] | | | | | [place] [address] | | + + + + + | Valentín Saleh | ECON | [address] | | | | | [place] [address] | | + + + + + | Roberto Carlos Lennon | LEVI | Unknown | | + + + + + Care Team Providers + +------+ + | Care Survey Questionnaire Designer Name | Role | Phone | [...] | | | | | left | [facility] | [facility] | | | | | | [facility], [place] | [place], [place] | | | | | | [address] | [address] Phone: | | | | | | Phone: | [phone] | | | | | | [phone] | Fax: | | | | | | Fax: | [phone] | | | | | | [phone] | | +--------+ + + + + + Reason for Visit + + + | Reason | Comments | + + + | Diabetes | | + + + Encounter Details +--------+---------+ + + + | Date | Type | Department | Care Team | Description | +--------+---------+ + + + | 06/18/ | Office | [facility] | Francois Pascal, | HYPERTENSION NEC | | 2014 | Visit | MEDICINE [address] | [address] | (Primary Dx); | | | | AVE [place], | [address] [place], | Hyperlipidemia; DM | | | | [place] [address] | [place] [address] | (diabetes mellitus); | | | | [phone] | [phone] | CHRONIC KIDNEY | | | | [...] is still occa sionally sore. 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 CKD, She urinates normally. There is no [...] VSD Father 50 Pneumonia Family Hx of Elk's chorea Sister and 2 brothers: CAD, Elk's Disease to [place] - with 2 Healthy Children No kidney disease in family. Social History: Reviewed history from 08/11/2011 and no changes required: Born in [facility] for 46 years. and Remarried [...] VSD Father 50 Pneumonia Family Hx of Elk's chorea Sister and 2 brothers: CAD, Elk's Disease to [place] - with 2 Healthy Children No kidney disease in family. Social History: Reviewed history from 08/11/2011 and no changes required: Born in [facility] for 46 years. and Remarried [...] | | | | | | [place] [address] | | | | | | [phone] | | | | | | | [...] + | [facility] | [address] | [place] | [phone] | | [facility] | | [address] | | | - LABORATORY | | | | + + + + + | [facility] | [address] | [place], [place] | | | [facility] | | [address], [facility] | | | - LABORATORY | | [...]
--- OUTSIDE RECORDS SUMMARY | ~2019-09-12 | XMS | Encounter Summary ---
Demographics + + + | Address | [address] | | | [place] [address] | + + + | Home Phone [...] Author | [facility] | | | and [place] | + + + | Organization | [facility] [...] | | | | | [place] [address] | | + + + + + | Valentín Saleh | ECON | [address] | | | | | [place] [address] | | + + + + + | Roberto Carlos Lennon | LEVI | [place] | | + + + + + Care Team Providers + +------+ + | Care Information Technology Analyst Name | Role | Phone | + +------+ + PCP | Unavailable | + +------+ + Encounter Details +--------+ + + + + | Date | Type | Department | Care Team | Description | +--------+ + + + + | 05/01/ | Hospital | [facility] | Jason Hernandez, | | | 2010 | Encounter | MED CTR XRAY [address] | PA-C [address] | | | | | [place] | [address] [place] | | | | | [place] [address] | [place] [address] | | | | | [phone] | [phone] | | | | | | | [...] | | | | | | [place] [address] | | | | | | [phone] | | | | | | | | +--------+---------+ + + + documented as of this encounter Visit Diagnoses Not on filedocumented in this encounter"
--- OUTSIDE RECORDS SUMMARY | ~2019-09-12 | XMS | Encounter Summary ---
Demographics + + + | Address | [address] | | | [place] [address] | + + + | Home Phone [...] Author | [facility] | | | and [place] | + + + | Organization | [facility] [...] | | | | | [place] [address] | | + + + + + | Valentín Saleh | ECON | [address] | | | | | [place] [address] | | + + + + + | Roberto Carlos Lennon | LEVI | Unknown | | + + + + + Care Team Providers + +------+ + | Care Swing Manager Name | Role | Phone | [...] | MEDICINE [address] | [address] | | | | | [place], | [address] [place], | | | | | [place] [address] | [place] [address] | | | | | [phone] | [phone] | | | | | | | [...] | | | | | | [place] [address] | | | | | | [phone] | | | | | | | | +--------+---------+ + + + documented as of this encounter Visit Diagnoses Not on filedocumented in this encounter"
--- OUTSIDE RECORDS SUMMARY | ~2019-09-12 | XMS | Encounter Summary ---
Demographics + + + | Address | [address] | | | [place] [address] | + + + | Home Phone [...] | Author | [facility] | | | and [place] | + + + | Organization | [facility] | [...] | | | | | [place] [address] | | + + + + + | Valentín Saleh | ECON | [address] | | | | | [place] [address] | | + + + + + | Roberto Carlos Lennon | LEVI | Unknown | | + + + + + Care Team Providers + +------+ + | Care Finish Mixer Name | Role | Phone | [...] Refill | | 2018 | | [facility] | [address] | | | | | [address] | [address] [place] [place], | | | | | [place] | [place] [address] | | | | | [address] | [phone] | | | | | [phone] | | | +--------+--------+ + + + [...] | | | | | | [place] [address] | | | | | | [phone] | | | | | | | [...]
--- OUTSIDE RECORDS SUMMARY | ~2019-09-12 | XMS | Encounter Summary ---
Demographics + + + | Address | [address] | | | [place] [address] | + + + | Home Phone [...] + | Author | [facility] | | | and [place] | + + + | Organization | [facility] | [...] | | | | | [place] [address] | | + + + + + | Valentín Saleh | ECON | [address] | | | | | [place] [address] | | + + + + + | Roberto Carlos Lennon | LEVI | [place] | | + + + + + Care Team Providers + +------+ + | Care Hair Dresser Name | Role | Phone | + +------+ + PCP | Unavailable | + +------+ + Encounter Details +--------+ + + + + | Date | Type | Department | Care Team | Description | +--------+ + + + + | 11/26/ | Hospital | [facility] | | | | 2002 | Encounter | MED CTR XRAY [address] | | | | | | [place] | | | | | | [place] [address] | | | | | | [phone] | | | +--------+ + + + [...] | | | | | | [place] [address] | | | | | | [phone] | | | | | | | | +--------+---------+ + + + documented as of this encounter Visit Diagnoses Not on filedocumented in this encounter"
--- OUTSIDE RECORDS SUMMARY | ~2019-09-12 | XMS | Encounter Summary ---
Demographics + + + | Address | [address] | | | [place] [address] | + + + | Home Phone [...] Author | [facility] | | | and [place] | + + + | Organization | [facility] | [...] | | | | | [place] [address] | | + + + + + | Valentín Saleh | ECON | [address] | | | | | [place] [address] | | + + + + + | Roberto Carlos Lennon | LEVI | Unknown | | + + + + + Care Team Providers + +------+ + | Care Accounts Receivable Assistant Name | Role | Phone | [...] Refill | | 2011 | | MEDICINE [place] | [address] | | | | | [address] | [address] [place] [place], | | | | | [place] | [place] [address] | | | | | [address] | [phone] | | | | | [phone] | | | +--------+--------+ + + + [...] | | | | | | [place] [address] | | | | | | [phone] | | | | | | | [...] + | [facility] | [address] | [place] | [phone] | | [facility] | | [address] | | | - LABORATORY | | | | + + + + + | [facility] | [address] | [place], [place] | | | [facility] | | [address] | | | - LABORATORY | | | | + + + + + documented in this encounter Visit Diagnoses + + | Diagnosis | + + | ARTHRITIS, CHRONIC - Primary Arthropathy, unspecified, site unspecified | + + documented in this encounter"
--- OUTSIDE RECORDS SUMMARY | ~2019-09-12 | XMS | Encounter Summary ---
Demographics + + + | Address | [address] | | | [place] [address] | + + + | Home Phone [...] | [facility] | | | and [place] | + + + | Organization | [facility] | | | and [place] | + + + | Address | Unknown | + + + | Phone | Unavailable | + + + Support + + + + + | Name | Relationship | Address | Phone | + + + + + | Sigrid Lennon | ECON | [address] | | | | | [place] [address] | | + + + + + | Valentín Saleh | ECON | [address] | | | | | [place] [address] | | + + + + + | Roberto Carlos Lennon | LEVI | Unknown | | + + + + + Care Team Providers + +------+ + | Care Television Cameraman Name | Role | Phone | + [...] + + | 10/12/ | Telephone | [facility] | Stas[place], | Nephrology | | 2019 | | NEPHROLOGY [address] | [address] | Appointment | | | | [facility] | [address] [facility] | | | | | [place] | [address] [place] | | | | | [address] | [address] | | | | | [phone] | | | +--------+ + + + [...] Lucero - 10/12/2018 2:53 PM [facility] called to say that [facility] told [...] | | | | | | [place] [id number] | | | | | | [phone] | | | | | | | | +--------+---------+ + + + documented as of this encounter Visit Diagnoses Not on filedocumented in this encounter"
--- OUTSIDE RECORDS SUMMARY | ~2019-09-12 | XMS | Encounter Summary ---
Demographics + + + | Address | [address] | | | [place] [address] | + + + | Home Phone [...] | [facility] | | | and [place] | + + + | Organization | [facility] | [...] | | | | | [place] [address] | | + + + + + | Valentín Saleh | ECON | [address] | | | | | [place] [address] | | + + + + + | Roberto Carlos Lennon | LEVI | Unknown | | + + + + + Care Team Providers + +------+ + | Care Wire Weaver Cloth Name | Role | Phone | + [...] [place] | | | | | | [address] | [address] | | | | | | Phone: | Phone: | | | | | | [phone] | [phone] | | | | | | Fax: | Fax: | | | | | | [phone] | [phone] | +--------+ + + + + + Encounter Details +--------+ + + + + | Date | Type | Department | Care Team | Description | +--------+ + + + + | 05/31/ | Orders Only | [facility] [place] [facility] | Francois Pascal, | Skin cancer (Primary | | 2017 | | MEDICINE [address] | [address] | Dx) | | | | [address] [place], | [address] [place], | | | | | [place] [address] | [place] [address] | | | | | [phone] | [phone] | | | | | | | [...] | | | | | | [place] [address] | | | | | | [phone] | | | | | | | [...]
--- OUTSIDE RECORDS SUMMARY | ~2019-09-12 | XMS | Encounter Summary ---
Demographics + + + | Address | [address] | | | [place] [address] | + + + | Home Phone [...] | Author | [facility] | | | and [place] | + + + | Organization | [facility] | | | and [place] | + + + | Address | Unknown | + + + | Phone | Unavailable | + + + Support + + + + + | Name | Relationship | Address | Phone | + + + + + | Sigrid Lennon | ECON | [address] | | | | | [place] [address] | | + + + + + | Valentín Saleh | ECON | [address] | | | | | [place] [address] | | + + + + + | Roberto Carlos Lennon | LEVI | Unknown | | + + + + + Care Team Providers + +------+ + | Care Sand Mill Operator Core Sand Name | Role | Phone | + [...] | 06/25/ | Refill | [facility] [place] [facility] | Francois Pascal, | Medication Refill | | 2013 | | MEDICINE [facility] [address] | [address] | | | | | A[address] [place], | [address] [place], | | | | | [place] [address] | [place] [address] | | | | | [phone] | [phone] | | | | | | | [...] | | | | | | [place] [address] | | | | | | [phone] | | | | | | | | +--------+---------+ + + + documented as of this encounter Visit Diagnoses Not on filedocumented in this encounter"
--- OUTSIDE RECORDS SUMMARY | ~2019-09-12 | XMS | Encounter Summary ---
Demographics + + + | Address | [address] | | | [place] [address] | + + + | Home Phone [...] + | Author | [facility] | | | and [place] | + + + | Organization | [facility] [...] | | | | | [place] [address] | | + + + + + | Valentín Saleh | ECON | [address] | | | | | [place] [address] | | + + + + + | Roberto Carlos Lennon | LEVI | Unknown | | + + + + + Care Team Providers + +------+ + | Care Business Reporting Developer Name | Role | Phone | + +------+ + | Francois Pascal MD | PCP | | + +------+ + Encounter Details +--------+ + + + + | Date | Type | Department | Care Team | Description | +--------+ + + + + | 06/16/ | Hospital | [facility] | [place], | | | 2011 | Encounter | MED CTR LABORATORY | [address] | | | | | [address] [place] | [address] [facility] | | | | | [place] | [address] [place] | | | | | [address] | [address] | | | | | [phone] | | | +--------+ + + + [...] | | | | | | [place] [address] | | | | | | [phone] | | | | | | | [...] + | [facility] | [address] | [place], [place] | [phone] | | [facility] | | [address] | | | - LABORATORY | | | | + + + + + | [facility] | [address] | [place], [place] | | | [facility] | | [address], [facility] | | | - LABORATORY [...] [address] | [place] | [phone] | | [facility] | | [address] | | | - LABORATORY | | | | + + + + + | [facility] | [address] | [place] | | | [facility] | | [address] | | | - LABORATORY [...] - 1.030 | [facility] | | | [place], | | | [facility] | | [...] + | [facility] | [address] | [place] | [phone] | | [facility] | | [address] | | | - LABORATORY | | | | + + + + + | [facility] | [address] | [place] | | | [facility] | | [address] | | | - LABORATORY [...] | | Eosinophils | | | [facility] | | [...] [address] | [place] | [phone] | | [facility] | | [address] | | | - LABORATORY | | | | + + + + + | [facility] | [address] | [place], [place] | | | [facility] | | [address] | | | - LABORATORY [...] | | | | mg/dL | [facility] | | | | | | [...] [address] | [place] | [phone] | | [facility] | | [address] | | | - LABORATORY | | | | + + + + + | [facility] | [address] | [place] | | | [facility] | | [address], [facility] | | | - LABORATORY | | | | + + + + + documented in this encounter Visit Diagnoses Not on filedocumented in this encounter"
--- OUTSIDE RECORDS SUMMARY | ~2019-09-12 | XMS | Encounter Summary ---
Demographics + + + | Address | [address] | | | [place] [address] | + + + | Home Phone [...] Author | [facility] | | | and [place] | + + + | Organization | [facility] | [...] | | | | | [place] [address] | | + + + + + | Valentín Saleh | ECON | [address] | | | | | [place] [address] | | + + + + + | Roberto Carlos Lennon | LEVI | Unknown | | + + + + + Care Team Providers + +------+ + | Care Counter Help Name | Role | Phone | + +------+ + | Francois Pascal MD | PCP | | + +------+ + Reason for Visit + +--------+ + | Reason | Onset | Comments | | | Date | | + +--------+ + | Medication Refill | 01/02/ | lantus | | | 2013 | | + +--------+ + Encounter Details +--------+--------+ + + + | Date | Type | Department | Care Team | Description | +--------+--------+ + + + | 01/02/ | Refill | [facility] [place] [facility] | Francois Pascal, | Medication Refill | | 2013 | | MEDICINE [address] | [address] | (lantus) | | | | [address] [place], | [address] [place], | | | | | [place] [address] | [place] [address] | | | | | [phone] | [phone] | | | | | | | [...] Telephone Encounter - Yamileth Bah RN - [place]02[place]2014 4[facility] [place] change in NovoLog dose. Pharmacy sales representative adding machines stated patient told her she wa s to take novolog 30 units before each meal. Per office note from Dr. Pascal, "She will add 3 units to every level that she is doing wi th the novolog." Notified pharmacy sales representative adding machines of this. Pharmacy updated their orders but would like confirmation from Dr. Pascal when he is back in the office. ddendum Note - Misael Schwartz MD - 01/02/2014 12:59 PM PDT Addended by: MISAEL HAYNES on: 01/02/2014 12:5 9 Modules accepted: Orders elephone Encounter - Misael Haynes MD - 01/02/2014 12:[address] reviewed Dr. Pascal's note. It steven rly states that she is to 3 units to her NovoLog scale. His note patient does not state any changes in her Lantus dosage. However please verify with her if he changed her daily Lantu s dose of verbally. ddendum Note - Mildred Booth RN - 01/02/2014 12:11 PM PDT Addended by: MILDRED BOOTH on: 01/02/2014 12:11 Modules accepted: Orders elephone Encounter - Mildred Booth RN - 01/02/2014 11:58 AM PDTPatient called.patient requesting refill reque st for Lantus. States she will be out today. Patient states at last visit 12/19/13 doctor raul ncreased her dose of Lantus. It does state in progress note: She will add 3 units to every level that she is doing with the novolog . Need clarification on order as to instructions. Thank you documented raul n this encounter Plan of Treatment +--------+---------+ + + + | Date | Type | Specialty | Care Team | Description | +--------+---------+ + + + | 12/06/ | Office | Cardiology | Stephenie Paul, | | | 2019 | Visit | | MD Bob [address] | | | | | | [place], | | | | | | [place] [address] | | | | | | [phone] | | | | | | | | +--------+---------+ + + + documented as of this encounter Visit Diagnoses + + | Diagnosis | + + | Type II or unspecified type diabetes mellitus without mention of complication, not | | stated as uncontrolled - Primary | + + documented in this encounter
--- OUTSIDE RECORDS SUMMARY | ~2019-09-12 | XMS | Encounter Summary ---
Demographics + + + | Address | [address] | | | [place] [address] | + + + | Home Phone [...] + | Author | [facility] | | | and [place] | + + + | Organization | [facility] | | | [...] | | | | | [place] [address] | | + + + + + | Valentín Saleh | ECON | [address] | | | | | [place] [address] | | + + + + + | Roberto Carlos Lennon | LEVI | Unknown | | + + + + + Care Team Providers + +------+ + | Care Surveyor Hydrographic Name | Role | Phone | + [...] | disease, | AVE [address] | IMCU NURSE [address] | | | | | stage 3 | [place] | [address] | | | | | (moderate) | [place] | [address] | | | | | (HCC) | [address] | [place], | | | | | Hypertension | Phone: | [place] [address] | | | | | , renal | [phone] | Phone: | | | | | disease | Fax: | [phone] | | | | | Procedures | [phone] | Fax: | | | | | ID OFFICE | | [phone] | | | | | OUTPATIENT | | | | | | | VISIT 25 | | | | | | | MINUTES | | | +--------+--------+ + + + + Encounter Details +--------+---------+ + + + | Date | Type | Department | Care Team | Description | +--------+---------+ + + + | 10/13/ | Office | [facility] [place] | [place], | Chronic kidney | | 2018 | Visit | NEPHROLOGY [address] | [address] | disease, stage II | | | | [address] | [address] | (mild) (Primary Dx); | | | | [place] | [address] | Hypertension, renal | | | | [address] | [address] | disease, stage 1-4 | | | | [phone] | | or unspecified | | | [...] whether | | | | | | detention insulin | | | | | | [...] (144 lb) | 10/13/2017 2:38 PM | 10/01/17Juan Giang | | | | PDT | [...] hip. Since then hope s been at [facility] for rehab. 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 Note Last Updated: 12/16/2015 Problem list staff midwife utility Preventative health care 03/23/2012 Note Last Updated: 09/27/2012 CRSC:03/23/2002normal except for redundancy and atonicity Next Due: Mammo:03/02/2012 benign Next:03/02/2013 Pap:03/24/2009 negative Next: CAROTID STENOSIS AMAUROSIS FUGAX DEMYELINATING DISEASE, CENTRAL NERVOUS SYSTEM FRACTURE, ANKLE, LEFT VITAMIN D DEFICIENCY Hypertension, renal disease DM type 2, uncontrolled, with renal complications ([facility]) 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 0 Fxpzidj-Hrmdquixo-Ypdpwny D (CALCIUM 500 PO) Take 1 tablet [...] | Wt 65.3 kg (144 lb) Comment: 10/01/17-Renee Giang | SpO2 95% | BMI 23.24 kg/m [...] Though weight is similar. Recommend that patient yunio w up with cardiology and/or primary care for further evaluation if it does not improve. She may need diuretic therapy. 3. Uncontrolled type 2 diabetes mellitus with stage 2 chronic kidney disease, unspecified w hether detention insulin use (HCC) E11.22 250.42 Hb A1c [...] care facility. CC: MD Charla Martinez ARNP [facility] documented i n this encounter Plan [...] | | | | | | [place] [address] | | | | | | [phone] | | | | | | | [...] chronic kidney disease, unspecified | | whether detention insulin use | + + | Vitamin D deficiency Unspecified vitamin D deficiency | + + documented in this encounter
--- OUTSIDE RECORDS SUMMARY | ~2019-09-12 | XMS | Encounter Summary ---
Demographics + + + | Address | [address] | | | [place] [address] | + + + | Home Phone [...] | Author | [facility] | | | and [place] | + + + | Organization | [facility] | | | and [place] | + + + | Address | Unknown | + + + | Phone | Unavailable | + + + Support + + + + + | Name | Relationship | Address | Phone | + + + + + | Sigrid Lennon | ECON | [address] | | | | | [place] [address] | | + + + + + | Valentín Saleh | ECON | [address] | | | | | [place] [address] | | + + + + + | Roberto Carlos Lennon | LEVI | [place] | | + + + + + Care Team Providers + +------+ + | Care Geographic Analyst Name | Role | Phone | + +------+ + PCP | Unavailable | + +------+ + Encounter Details +--------+ + + + + | Date | Type | Department | Care Team | Description | +--------+ + + + + | 01/25/ | Hospital | [facility] | Francois Pascal, | | | 2007 | Encounter | MED CTR LABORATORY | [address] | | | | | [address] [place] | [address] [place], | | | | | [place] | [place] [address] | | | | | [address] | [phone] | | | | | [phone] | | | +--------+ + + + [...] | | | | | | [place] [address] | | | | | | [phone] | | | | | | | | +--------+---------+ + + + documented as of this encounter Visit Diagnoses Not on filedocumented in this encounter"
--- OUTSIDE RECORDS SUMMARY | ~2019-09-12 | XMS | Encounter Summary ---
Demographics + + + | Address | [address] | | | [place] [address] | + + + | Home Phone [...] | Author | [facility] | | | and [place] | + + + | Organization | [facility] | [...] | | | | | [place] [address] | | + + + + + | Valentín Saleh | ECON | [phone] | | | | | [place] [address] | | + + + + + | Roberto Carlos Lennon | LEVI | Unknown | | + + + + + Care Team Providers + +------+ + | Care Facial Operator Name | Role | Phone | [...] | | 2019 | Outreach | [facility] [place] | [address] | | | | | [address] | [address] [place], | | | | | [place] | [place] [address] | | | | | [address] | [phone] | | | | | [phone] | | | +--------+ + + + [...] order(s) as per your assessment - (see Turbine Attendant): Orders Placed This Encounter Pending Hemoglobin A1C [...] | Visit | | MD Bob Vasquez [place] | | | | | | [place], | | | | | | [place] [address] | | | | | | [phone] | | | | | | | | +--------+---------+ + + + documented as of this encounter Visit Diagnoses + + | Diagnosis | + + | 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
--- OUTSIDE RECORDS SUMMARY | ~2019-09-12 | XMS | Encounter Summary ---
Demographics + + + | Address | [address] | | | [place] [address] | + + + | Home Phone [...] + | Author | [facility] | | | and [place] | + + + | Organization | [facility] [...] | | | | | [place] [address] | | + + + + + | Valentín Saleh | ECON | [address] | | | | | [place] [address] | | + + + + + | Roberto Carlos Lennon | LEVI | Unknown | | + + + + + Care Team Providers + +------+ + | Care Research Support Specialist Name | Role | Phone | + +------+ + | Francois Pascal MD | PCP | | + +------+ + Encounter Details +--------+ + + + + | Date | Type | Department | Care Team | Description | +--------+ + + + + | 04/14/ | Hospital | [facility] | Francois Pascal, | Essential | | 2016 | Encounter | MED CTR LABORATORY | [address] | hypertension; | | | | [address] [place] | [address] [place], | Diabetes mellitus | | | | [place], [place] | [place] [address] | due to underlying | | | | [address] | 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 | | [...] [address] | [place] | [phone] | | [facility] | | [address] | | | - LABORATORY | | [...] [address] | [place] | [phone] | | [facility] | | [address] | | | - LABORATORY | | [...] + | [facility] | [address] | [place] | [phone] | | [facility] | | [address] | | | - LABORATORY | | [...] mL/min/1.73m2 | [facility] | | | GABONESE | RATE,ESTIMATED | | MEDICAL | | | | mL/min/1.44b5Ntad than | | CENTER - | | [...] [address] | [place] | [phone] | | [facility] | | [address] | | | - LABORATORY | | [...]
--- OUTSIDE RECORDS SUMMARY | ~2019-09-12 | XMS | Encounter Summary ---
Demographics + + + | Address | [address] | | | [place] [address] | + + + | Home Phone [...] + | Author | [facility] | | | and [place] | + + + | Organization | [facility] | | | and [place] | + + + | Address | Unknown | + + + | Phone | Unavailable | + + + Support + + + + + | Name | Relationship | Address | Phone | + + + + + | Sigrid Lennon | ECON | [address] | | | | | [place] [address] | | + + + + + | Valentín Saleh | ECON | [address] | | | | | [place] [address] | | + + + + + | Roberto Carlos Lennon | LEVI | Unknown | | + + + + + Care Team Providers + +------+ + | Care Police Liaison Officer Name | Role | Phone | + +------+ + | Francois Pascal MD | PCP | | + +------+ + Reason for Visit + +--------+ + | Reason | Onset | Comments | | | Date | | + +--------+ + | Imaging Only | 09/16/ | | | | 2016 | | + +--------+ + Encounter Details +--------+ + + + + | Date | Type | Department | Care Team | Description | +--------+ + + + + | 09/16/ | Telephone | [facility] | Francois Pascal, | Imaging Only | | 2016 | | MEDICINE [address] | [address] | | | | | [place], | [address] [place], | | | | | [place] [address] | [place] [address] | | | | | [phone] | [phone] | | | | | | | [...] Telephone Encounter - Leanne Johnson RN - 09/16/2016 3:[address] Guzmán and MRI order cancelled per wishes of family.Electronically signed by DEISY Grimm t 09/16/2016 3:15 PM PDTTelephone Encounter - Epifanio Harris - 09/16/2016 9:50 A M PDTContact/Caller: Sig[place] Contact Number: [phone] Provider/Nurse: Naida Reason for Call: Patient's spouse is stating that Renee Giang wanted to discharge patient to care home. Patient's spouse states that the family is to cancel the appointment with Dr Va Guzmán as they feel that is not what the patient needs. Patient's spouse would like to can megan the MRI referral. Please advise. Last Appointment: 09-09-16 Next Appointment: 11-11-16 documented in th is encounter Plan of [...] | | | | | | [place] [address] | | | | | | [phone] | | | | | | | | +--------+---------+ + + + documented as of this encounter Visit Diagnoses Not on filedocumented in this encounter"
--- OUTSIDE RECORDS SUMMARY | ~2019-09-12 | XMS | Encounter Summary ---
Demographics + + + | Address | [address] | | | [place] [address] | + + + | Home Phone [...] [facility] | | | and [place] | + + + | Organization | [facility] | | [...] | | | | | [place] [address] | | + + + + + | Valentín Saleh | ECON | [phone] | | | | | [place] [address] | | + + + + + | Roberto Carlos Lennon | LEVI | [place] | | + + + + + Care Team Providers + +------+ + | Care Online Communications Specialist Name | Role | Phone | + +------+ + PCP | Unavailable | + +------+ + Encounter Details +--------+ + + + + | Date | Type | Department | Care Team | Description | +--------+ + + + + | 09/08/ | Hospital | [facility] | Francois Pascal, | | | 2010 | Encounter | MED CTR LABORATORY | [address] | | | | | [address] [place] | [address] [place], | | | | | [place] | [place] [address] | | | | | [address] | [phone] | | | | | [phone] | | | +--------+ + + + [...] | | | | | | [place] [address] | | | | | | [phone] | | | | | | | [...] + | [facility] | [address] | [place] | [phone] | | [facility] | | [address] | | | - LABORATORY | | | | + + + + + | [facility] | [address] | [place], [place] | | | [facility] | | [address] | | | - LABORATORY [...] - 1.030 | [facility] | | | [place], | | | [facility] | | [...] [address] | [place] | [phone] | | [facility] | | [address] | | | - LABORATORY | | | | + + + + + | [facility] | [address] | [place] | | | [facility] | | [address] | | | - LABORATORY [...] | [facility] | [address] | [place], [place] | [phone] | | [facility] | | [address] | | | - LABORATORY | | | | + + + + + | [facility] | [address] | [place], [place] | | | [facility] | | [address] | | | - LABORATORY [...] | [facility] | [address] | [place] | [phone] | | [facility] | | [address] | | | - LABORATORY | | | | + + + + + | [facility] | [address] | [place], [place] | | | [facility] | | [id number] [place] [address] | | | - LABORATORY | | [...] | [facility] | [address] | [place], [place] | [phone] | | [facility] | | [address] | | | - LABORATORY | | | | + + + + + | [facility] | [address] | [place], [place] | | | [facility] | | [address] | | | - LABORATORY [...] | [facility] | [address] | [place], [place] | [phone] | | [facility] | | [address] | | | - LABORATORY | | | | + + + + + | [facility] | [address] | [place], [place] | | | [facility] | | [id number] [place] [address] | | | - LABORATORY | | | | + + + + + documented in this encounter Visit Diagnoses Not on filedocumented in this encounter"
--- OUTSIDE RECORDS SUMMARY | ~2019-09-12 | XMS | Encounter Summary ---
Demographics + + + | Address | [address] | | | [place] [address] | + + + | Home Phone [...] | Author | [facility] | | | and [place] | + + + | Organization | [facility] | | [...] | | | | | [place] [address] | | + + + + + | Valentín Saleh | ECON | [address] | | | | | [place] [address] | | + + + + + | Roberto Carlos Lennon | LEVI | Unknown | | + + + + + Care Team Providers + +------+ + | Care Docent Coordinator Name | Role | Phone | [...] [address] [facility] | (MODERATE) (Primary | | | | [place], [place] | [address] [place], [place] | Dx) | | | | [address] | [address] | | | | | [phone] | | | +--------+ + + + [...] encounter Progress Notes Anika Tobias RN - 06/13/2012 9:25 AM PDTLab order for nephrology appt on 07/06/12 sent to [facility] lab. documented in t his encounter [...] | | | | | | [place] [address] | | | | | | [phone] | | | | | | | | +--------+---------+ + + + documented as of this encounter Visit Diagnoses + + | Diagnosis | + + | CHRONIC KIDNEY DISEASE STAGE III (MODERATE) - Primary Chronic kidney disease, Stage | | III (moderate) | + + documented in this encounter"
--- OUTSIDE RECORDS SUMMARY | ~2019-09-12 | XMS | Encounter Summary ---
[...] | [facility] | | | and [place] | + + + | Organization | [facility] [...] | | | | | [place] [address] | | + + + + + | Valentín Saleh | ECON | [address] | | | | | [place] [address] | | + + + + + | Roberto Carlos Lennon | LEVI | [place] | | + + + + + Care Team Providers + +------+ + | Care Rides Supervisor Name | Role | Phone | + +------+ + PCP | Unavailable | + +------+ + Encounter Details +--------+ + + + + | Date | Type | Department | Care Team | Description | +--------+ + + + + | 03/04/ | Hospital | [facility] | Mauricio Rider | | | 2009 | Encounter | MED CTR LABORATORY | MD [place] [address] [place] [address] | | | | | [address] | [place] | | | | | [place] | [address] | | | | | [address] | | | | | | [phone] | | | +--------+ + + + [...] | | | | | | [place] [address] | | | | | | [phone] | | | | | | | | +--------+---------+ + + + documented as of this encounter Visit Diagnoses Not on filedocumented in this encounter"
--- OUTSIDE RECORDS SUMMARY | ~2019-09-12 | XMS | Encounter Summary ---
Demographics + + + | Address | [address] | | | [place] [address] | + + + | Home Phone [...] | | | | | [place] [address] | | + + + + + | Valentín Saleh | ECON | [address] | | | | | [place] [address] | | + + + + + | Roberto Carlos Lennon | LEVI | Unknown | | + + + + + Care Team Providers + +------+ + | Care Barrel Lapper Name | Role | Phone | + +------+ + | Francois Pascal MD | PCP | | + +------+ + Reason for Visit + + + | Reason | Comments | + + + | Hyperlipidemia | follow up | + + + | Diabetes | follow up | + + + | Osteoarthritis | follow up | + + + | Results | lab | + + + Encounter Details +--------+---------+ + + + | Date | Type | Department | Care Team | Description | +--------+---------+ + + + | 06/28/ | Office | [facility] | Francois Pascal, | CHRONIC KIDNEY | | 2012 | Visit | MEDICINE [facility] | [address] | DISEASE STAGE III | | | | [address] | [address] [place], | (MODERATE) (Primary | | | | [place] | [place] [address] | Dx); DM (diabetes | | | | [address] | [phone] | mellitus) ([facility]); | | | | [phone] | | Hyperlipidemia; | | | | [...] + | Blood Pressure | 118/60 | 06/28/2012 9:57 AM | | | | | PDT | | + + + + + | Pulse | 64 | 06/28/2012 9:57 AM | | | | | PDT | | + + + + + | Temperature | 35.8 C (96.5 F) | 06/28/2012 9:57 AM | | | | | PDT | | + + + + + | Respiratory Rate | 16 | 06/28/2012 9:57 AM | | | | | PDT | | + + + + + | Oxygen Saturation | 94% | 06/28/2012 9:57 AM | | | | | PDT | | + + + + + | Inhaled Oxygen | - | - | | | Concentration | | | | + + + + + | Weight | 77.1 kg (170 lb) | 06/28/2012 9:57 AM | | | | | PDT | | + + + + + | Height | 158.8 cm (5' 2.5") | 06/28/2012 9:57 AM | | | | | PDT | | + + + + + | Body Mass Index | 30.6 | 06/28/2012 9:57 AM | | | | | PDT | | + + + + + documented in this encounter Progress Notes Francois Pascal MD - 06/28/2012 10:14 AM PDTFormatting of this note might be [...] VSD Father 50 Pneumonia Family Hx of Lenoir's chorea Sister and 2 brothers: CAD, Lenoir's Disease to [place] - with 2 Healthy Children No kidney disease in family. Social History: Reviewed history from 08/11/2011 and no changes required: Born in [facility] for [facility] years. and Remarried 2 [...] no joint swelling and No arth ralgias. No joint pain Skin: Neg for color [...] ANKLE, LEFT Plan: She looks and feels fine, I would suggest some physical therapy, She will consider this. Her kidney function is stable. RTC 3 months with labs prior. documented in this encounter Plan of Treatment +--------+---------+ + + + | Date | Type | Specialty | Care Team | Description | +--------+---------+ + + + | 10/02/ | Office | Cardiology | Stephenie Paul, | | | 2019 | Visit | | MD Bob [address] | | | | | | [place], | | | | | | [place] [address] | | | | | | [phone] | | | | | | | [...]
--- OUTSIDE RECORDS SUMMARY | ~2019-09-12 | XMS | Encounter Summary ---
Demographics + + + | Address | [address] | | | [place] [address] | + + + | Home Phone [...] | Author | [facility] | | | and [place] | + + + | Organization | [facility] | | [...] | | | | | [place] [address] | | + + + + + | Valentín Saleh | ECON | [address] | | | | | [place] [address] | | + + + + + | Roberto Carlos Lennon | LEVI | Unknown | | + + + + + Care Team Providers + +------+ + | Care Air Conditioning Coil Assembler Name | Role | Phone | [...] + | 07/19/ | Office | [facility] | Francois Pascal, | CHRONIC KIDNEY | | 2017 | Visit | [address] | [address] | DISEASE STAGE III | | | | [address] [place], | [address] [place], | (MODERATE) ([place] | | | | [place] [address] | [place] [address] | Dx); Stomatitis; | | | | [phone] | [phone] | Reactive depression | | | | [...] VSD Father 50 Pneumonia Family Hx of Tompkins's chorea Sister and 2 brothers: CAD, Tompkins's Disease to [place] - with 2 Healthy Children No kidney [...] | | | | | | [place] [address] | | | | | | [phone] | | | | | | | [...]
--- OUTSIDE RECORDS SUMMARY | ~2019-09-12 | XMS | Encounter Summary ---
Demographics + + + | Address | [address] | | | [place] [address] | + + + | Home Phone [...] + | Author | [facility] | | | and [place] | + + + | Organization | [facility] [...] | | | | | [place] [address] | | + + + + + | Valentín Saleh | ECON | [address] | | | | | [place] [address] | | + + + + + | Roberto Carlos Lennon | LEVI | [place] | | + + + + + Care Team Providers + +------+ + | Care Field Services Manager Name | Role | Phone | + +------+ + PCP | Unavailable | + +------+ + Encounter Details +--------+ + + + + | Date | Type | Department | Care Team | Description | +--------+ + + + + | 10/26/ | Hospital | [facility] | | | | 2001 | Encounter | MED CTR XRAY [address] | | | | | [place] | | | | | | [place] [address] | | | | | | [phone] | | | +--------+ + + + [...] | | | | | | [place] [address] | | | | | | [phone] | | | | | | | | +--------+---------+ + + + documented as of this encounter Visit Diagnoses Not on filedocumented in this encounter"
--- OUTSIDE RECORDS SUMMARY | ~2019-09-12 | XMS | Encounter Summary ---
Demographics + + + | Address | [address] | | | [place] [address] | + + + | Home Phone [...] | Author | [facility] | | | and Clarkeana | + + + | Organization | [facility] [...] | | | | | [place] [address] | | + + + + + | Valentín Saleh | ECON | [address] | | | | | [place] [address] | | + + + + + | Roberto Carlos Lennon | LEVI | Unknown | | + + + + + Care Team Providers + +------+ + | Care Forming Fixer Name | Role | Phone | + +------+ + | Francois Pascal MD | PCP | | + +------+ + Encounter Details +--------+ + + + + | Date | Type | Department | Care Team | Description | +--------+ + + + + | 12/02/ | Hospital | [facility] | [place], | CHRONIC KIDNEY | | 2015 | Encounter | MED CTR LABORATORY | [address] | DISEASE STAGE III | | | | [address] [place] | [address] [facility] | (MODERATE) | | | | [place] | [address] [place] | | | | | [address] | [address] | | | | | [phone] | | | +--------+ + + + [...] | | | | | | mellitus) ([facility]) | | | | | | [...] | | | | | | [place] [address] | | | | | | [phone] | | | | | | | [...] + | [facility] | [address] | [place] | [phone] | | [facility] | | [address] | | | - LABORATORY | | [...] mL/min/1.73m2 | [facility] | | | [facility] | RATE,ESTIMATED | | MEDICAL | | | | mL/min/1.49v5Jlrz than | | CENTER - | | [...] [address] | [place] | [phone] | | [facility] | | [address] | | | - LABORATORY | | | | + + + + + documented in this encounter Visit Diagnoses + + | Diagnosis | + + | CHRONIC KIDNEY DISEASE STAGE III (MODERATE) Chronic kidney disease, Stage III | | (moderate) | + + documented in this encounter"
--- OUTSIDE RECORDS SUMMARY | ~2019-09-12 | XMS | Encounter Summary ---
Demographics + + + | Address | [address] | | | [place] [address] | + + + | Home Phone [...] Author | [facility] | | | and [place]ana | + + + | Organization | [facility] [...] | | | | | [place] [address] | | + + + + + | Valentín Saleh | ECON | [address] | | | | | [place] [address] | | + + + + + | Roberto Carlos Lennon | LEVI | [place] | | + + + + + Care Team Providers + +------+ + | Care Avionics Integration Engineer Name | Role | Phone | + +------+ + PCP | Unavailable | + +------+ + Encounter Details +--------+ + + + + | Date | Type | Department | Care Team | Description | +--------+ + + + + | 07/27/ | Hospital | [facility] | | | | 2005 | Encounter | MED CTR XRAY [address] | | | | | | [address] [place] | | | | | | [place] [address] | | | | | | [phone] | | | +--------+ + + + [...] | | | | | | [place] [address] | | | | | | [phone] | | | | | | | | +--------+---------+ + + + documented as of this encounter Visit Diagnoses Not on filedocumented in this encounter"
--- OUTSIDE RECORDS SUMMARY | ~2019-09-12 | XMS | Encounter Summary ---
Demographics + + + | Address | [address] | | | [place] [address] | + + + | Home Phone [...] Author | [facility] | | | and [place] | + + + | Organization | [facility] | [...] | | | | | [place] [address] | | + + + + + | Valentín Saleh | ECON | [address] | | | | | [place] [address] | | + + + + + | Roberto Carlos Lennon | LEVI | Unknown | | + + + + + Care Team Providers + +------+ + | Care Platform Inspector Name | Role | Phone | + +------+ + | Francois Pascal MD | PCP | | + +------+ + Reason for Visit + + + | Reason | Comments | + + + | Fall | Few days ago and seen in ER | + + + | ED Follow-up | | + + + Encounter Details +--------+---------+ + + + | Date | Type | Department | Care Team | Description | +--------+---------+ + + + | 10/21/ | Office | [facility] | Francois Pascal, | UTI (lower urinary | | 2015 | Visit | MEDICINE [address] | [address] | tract infection) | | | | [address]VE [place], | [address] [place], | (Primary Dx); | | | | [place] [id number] | [place] [phone] | Cerebral contusion | | | | [phone] | [phone] | without loss of | | | | | | consciousness, | | | | | | unspecified | | | | | | laterality, sequela | | | | | | ([facility]) | +--------+---------+ + + + Social History [...] + + + | Blood Pressure | 110/66 | 10/21/2014 10:11 AM | | | | | PDT | | + + + + + | Pulse | 60 | 10/21/2014 10:11 AM | | | | | PDT | | + + + + + | Temperature | 36.1 C (97 F) | 10/21/2014 10:11 AM | | | | | PDT | | + + + + + | Respiratory Rate | 14 | 10/21/2014 10:11 AM | | | | | PDT | | + + + + + | Oxygen Saturation | 96% | 10/21/2014 10:11 AM | | | | | PDT | | + + + + + | Inhaled Oxygen | - | - | | | Concentration | | | | + + + + + | Weight | 73 kg (161 lb) | 10/21/2014 10:11 AM | | | | | PDT | | + + + + + | Height | 157.5 cm (5' 2") | 10/21/2014 10:11 AM | | | | | PDT | | + + + + + | Body Mass Index | 29.45 | 10/21/2014 10:11 AM | | | | | PDT | | + + + + + documented in this encounter Progress Notes Francois Pascal MD - 10/21/2014 10:48 AM PDTFormatting of this note might [...] Still on abx, There are no urinary symptoms. Riri her and her think she is a little less confused. She is stil fatigued most of the time. She has no PERSAUD. Review of Systems Objective: Physical Exam Slight subtle speech changes with the slightest lisp and delay. Heent, WNL, No carotid bruit Chest CTAB Heart RR&R /s M Abd S,NT,ND,BS+ Ext, no CCor E Neuro Non-focal Lymph, no cervical, axillary, inguinal adenopathy Musculoskeletal, no gross deformity or loss or range of motion Skin, no gross lesions Assessment: 1. UTI (lower urinary tract infection) 2. 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 documented in this encounter Plan of Treatment +--------+---------+ + + + | Date | Type | Specialty | Care Team | Description | +--------+---------+ + + + | 12/06/ | Office | Cardiology | Stephenie Paul, | | | 2019 | Visit | | MD [address] | | | | | | [place], | | | | | | [place] [id number] | | | | | | [phone] | | | | | | | | +--------+---------+ + + + documented as of this encounter Visit Diagnoses + + | Diagnosis | + + | UTI (lower urinary tract infection) - Primary Urinary tract infection, site not | | specified | + + | Cerebral contusion without loss of consciousness, unspecified laterality, sequela | | (HCC) | + + documented in this encounter
--- OUTSIDE RECORDS SUMMARY | ~2019-09-12 | XMS | Encounter Summary ---
Demographics + + + | Address | [address] | | | [place] [address] | + + + | Home Phone [...] + | Author | [facility] | | | and [place]ana | + + + | Organization | [facility] | [...] | | | | | [place] [address] | | + + + + + | Valentín Saleh | ECON | [address] | | | | | [place] [address] | | + + + + + | Roberto Carlos Lennon | LEVI | Unknown | | + + + + + Care Team Providers + +------+ + | Care Expeller Worker Name | Role | Phone | [...] | MEDICINE [address] | [address] | | | | | [place], | [address] [place], | | | | | [place] [address] | [place] [address] | | | | | [phone] | [phone] | | | | | | | [...] | | | | | | [place] [address] | | | | | | [phone] | | | | | | | | +--------+---------+ + + + documented as of this encounter Visit Diagnoses Not on filedocumented in this encounter"
--- OUTSIDE RECORDS SUMMARY | ~2019-09-12 | XMS | Encounter Summary ---
Demographics + + + | Address | [address] | | | [place] [address] | + + + | Home Phone [...] Author | [facility] | | | and [place]ana | + + + | Organization | [facility] | [...] | | | | | [place] [address] | | + + + + + | Valentín Saleh | ECON | [address] | | | | | [place] [address] | | + + + + + | Roberto Carlos Lennon | LEVI | Unknown | | + + + + + Care Team Providers + +------+ + | Care Fire Behavior Analyst Name | Role | Phone | + +------+ + | No, Physician | PCP | Unavailable | + +------+ + Encounter Details +--------+ + + + + | Date | Type | Department | Care Team | Description | +--------+ + + + + | 04/06/ | Lab | [facility] | [place], | Chronic kidney | | 2018 | Requisition | MED CTR LABORATORY | [address] | disease, stage III | | | | [address] [place] | [address] | (moderate) | | | | [place] | [address] [place] | | | | | [address] | [id number] | | | | | [phone] | | | +--------+ + + + [...] | | | | | | [place] [address] | | | | | | [phone] | | | | | | | [...] + | [facility] | [address] | [place], [place] | [phone] | | [facility] | | [address] | | | - LABORATORY | | [...] ST. | [address] | [place], [place] | [phone] | | [facility] | | [address] | | | - LABORATORY | | | | + + + + + documented in this encounter Visit Diagnoses + + | Diagnosis | + + | Chronic kidney disease, stage III (moderate) (HCC) Chronic kidney disease, Stage III | | (moderate) | + + documented in this encounter"
--- OUTSIDE RECORDS SUMMARY | ~2019-09-12 | XMS | Encounter Summary ---
Demographics + + + | Address | [address] | | | [place] [address] | + + + | Home Phone [...] | Author | [facility] | | | and Clarkeana | + + + | Organization | [facility] | | [...] | | | | | [place] [address] | | + + + + + | Valentín Saleh | ECON | [address] | | | | | [place] [address] | | + + + + + | Roberto Carlos Lennon | LEVI | Unknown | | + + + + + Care Team Providers + +------+ + | Care Senior Ios Developer Name | Role | Phone | [...] | | Gait | [place] | [address] Phone: | | | | | instability | [address] | [phone] | | | | | Procedures | Phone: | Fax: | | | | | [facility] | [phone] | [phone] | | | | | TREATMENT 45 | Fax: | | | | | | | [phone] | | +--------+--------+ + + + + Encounter Details +--------+---------+ + + + | Date | Type | Department | Care Team | Description | +--------+---------+ + + + | 03/10/ | Office | [facility] | Francois Pascal, | Posture imbalance | | 2016 | Visit | MED CTR THERAPY PT | MD [address] | (Primary Dx); | | | | OP [address] | [address] [place], | Impaired functional | | | | [place], [place] | [place] [address] | mobility, balance, | | | | [address] | [phone] | gait, and endurance; | | | | [phone] | | Left ankle pain | | | | | Cheyenne Caballero, | | | | | | PALEONTOLOGICAL HELPER [address] | | | | | | [place], [place] | | | | | | [address] | | | | | | | [...] of this encounter Progress Notes Cheyenne Caballero, PALEONTOLOGICAL HELPER - 03/11/2015 7:39 AM PSTFormatting of this note might be different f rom the original. [facility] CTR THERAPY PT OP [address] [place] [address] Physical Therapy Daily Treatment Note Date: 03/10/2015 Patient Information Patient Name: Alyson Lennon Date of : 1930 Age: 84 y.o. Encounter Diagnoses Code Name Primary? R29.3 Posture imbalance Yes Z74.09 Impaired functional mobility, balance, gait, and endurance M25.572 Left ankle pain Date of Onset: 10/24/2014 Referring Provider: Francois Pascal MD Rehab Precautions Office Visit from 12/24/2014 in [facility] CTR THERAPY PT OP Rehab Precautions Precautions Comments fall risk Start Time: 1300 Stop time: 1345 Duration: 45 minutes Timed Treatment Codes: 45 minutes # of PT Visits to Date: 14 Subjective: No falls since last session. Reports her walker got left behind in the parking lot last we, has not gotten a new one yet. Feels very unsteady with her cane. Pain Assessment: Pain Scale Used: NUMERIC Pain Rating Pre Assessment: 5 Pain Rating Post Assessment: 4 Location: left ankle Objective: Education: recommended pt get a new 4WW MARIANNE, do stretches throughout the day Manual therapy to increase ROM of left ankle- At beginning and end of session-Stretching of left ankle DF, PF, inversion, eversion Stretching and strengthening ex and balance training to reduce fall risk- rocker board side to side, fwd/back, diagonal Supine and sidelying SLR, iso hip add, RTB resisted clamshell in hooklying Calf stretches at stairs and tilt board SLS, standing on foam with head turns small [place] Stepping clock ex without UE support close SBA Assessment: Needs a 4WW for safe ambulation, especially outdoors. Plan: Cont with balance training, stretches, strengthening. Electronically signed by: Cheyenne Caballero PTA, 03/11/2015 7:40 Patient Name: Alyson Lennon/: 1930/ documented in [...] | | | | | | [place] [address] | | | | | | [phone] | | | | | | | [...]
--- OUTSIDE RECORDS SUMMARY | ~2019-09-12 | XMS | Encounter Summary ---
Demographics + + + | Address | [address] | | | [place] [address] | + + + | Home Phone [...] | [facility] | | | and Clarkeana | + + + | Organization | [facility] | [...] | | | | | [place] [address] | | + + + + + | Valentín Saleh | ECON | [address] | | | | | [place] [address] | | + + + + + | Roberto Carlos Lennon | LEVI | Unknown | | + + + + + Care Team Providers + +------+ + | Care Lens Edger Name | Role | Phone | + +------+ + | Francosi Pascal MD | PCP | | + +------+ + Reason for Visit +---------+--------+ + | Reason | Onset | Comments | | | Date | | +---------+--------+ + | Results | 08/25/ | | | | 2016 | | +---------+--------+ + Encounter Details +--------+ + + + + | Date | Type | Department | Care Team | Description | +--------+ + + + + | 08/25/ | Telephone | [facility] | Francois Pascal, | Results | | 2016 | | MEDICINE [address] | [address] | | | | | [address] [place], | [address] [place], | | | | | [place] [address] | [place] [address] | | | | | [phone] | [phone] | | | | | | | [...] Telephone Encounter - Airam Menjivar RN - 08/25/2016 9:07 AM PDT----- Message from Maribel Pascal MD sent at 08/20/2016 10:58 PDT ----- Bactrim DS, one po bid x 5 days if not allergic documented in this encounter Plan of Treatment +--------+---------+ + + + | Date | Type | Specialty | Care Team | Description | +--------+---------+ + + + | 12/06/ | Office | Cardiology | Stephenie Paul, | | | 2019 | Visit | | MD [address] | | | | | | [place], | | | | | | [place] [address] | | | | | | [phone] | | | | | | | | +--------+---------+ + + + documented as of this encounter Visit Diagnoses Not on filedocumented in this encounter"
--- OUTSIDE RECORDS SUMMARY | ~2019-09-12 | XMS | Encounter Summary ---
Demographics + + + | Address | [address] | | | [place] [address] | + + + | Home Phone [...] + | Author | [facility] | | | and Clarkeana | + + + | Organization | [facility] | | | [...] | | | | | [place] [address] | | + + + + + | Valentín Saleh | ECON | [address] | | | | | [place] [address] | | + + + + + | Roberto Carlos Lennon | LEVI | Unknown | | + + + + + Care Team Providers + +------+ + | Care Landscape Horticulture Instructor Name | Role | Phone | + +------+ + | Francois Pascal MD | PCP | | + +------+ + Encounter Details +--------+ + + + + | Date | Type | Department | Care Team | Description | +--------+ + + + + | 09/12/ | Orders Only | [facility] [place] | [place], | Chronic kidney | | 2019 | | NEPHROLOGY [address] | [address] | disease, stage II | | | | [address] | [address] | (mild) (Primary Dx); | | | | [place], [place] | [address] [place] | Vitamin D | | | | [address] | [address] | deficiency | | | | [phone] | | | +--------+ + + + [...] encounter Progress Notes Aubree Pink RN - 09/12/2018 11:11 AM PDTLabs for nephrology appt on 10/16/18 NEED to be faxed to [facility] closer to appointment date. documented in this en counter Plan of [...] | | | | | | [place] [address] | | | | | | [phone] | | | | | | | | +--------+---------+ + + + + +------+--------+ + + | Name | Type | Priori | Associated Diagnoses | Order Schedule | | | | ty | | | + +------+--------+ + + | Protein/Creatinine | Lab | Routin | Chronic kidney | Expected: | | Ratio, Urine | | e | disease, stage II | 10/09/2018, Expires: | | | | | (mild) Vitamin D | 09/13/2019 | | | | | deficiency | | + +------+--------+ + + documented as of this encounter Results Vitamin D, Deficiency Screen (25-Hydroxy) (10/10/2018 3:20 PM PDT) + +--------+ + + + | Component | Value | Ref Range | Performed | Pathologist | | | | | At | Signature | + +--------+ + + + | Vitamin D, | 28 (L) | 30 - 100 ng/mL | [facility] [address] | [place] | [phone] | | [facility] | | [address] | | | - LABORATORY | | | | + + + + + documented in this encounter Visit Diagnoses + + | Diagnosis | + + | Chronic kidney disease, stage II (mild) - Primary Chronic kidney disease, Stage II | | (mild) | + + | Vitamin D deficiency Unspecified vitamin D deficiency | + + documented in this encounter"
--- OUTSIDE RECORDS SUMMARY | ~2019-09-12 | XMS | Encounter Summary ---
Demographics + + + | Address | [address] | | | [place] [address] | + + + | Home Phone [...] | Author | [facility] | | | and [place] | + + + | Organization | [facility] | [...] | | | | | [place] [address] | | + + + + + | Valentín Saleh | ECON | [address] | | | | | [place] [address] | | + + + + + | Roberto Carlos Lennon | LEVI | [place] | | + + + + + Care Team Providers + +------+ + | Care Auditing Control Clerk Name | Role | Phone | + +------+ + PCP | Unavailable | + +------+ + Encounter Details +--------+ + + + + | Date | Type | Department | Care Team | Description | +--------+ + + + + | 06/09/ | Hospital | [facility] | | | | 2006 | Encounter | MED CTR LABORATORY | | | | | | [address] [place] | | | | | | [place] | | | | | | [address] | | | | | | [phone] | | | +--------+ + + + [...] | | | | | | [place] [address] | | | | | | [phone] | | | | | | | | +--------+---------+ + + + documented as of this encounter Visit Diagnoses Not on filedocumented in this encounter"
--- OUTSIDE RECORDS SUMMARY | ~2019-09-12 | XMS | Encounter Summary ---
Demographics + + + | Address | [address] | | | [place] [address] | + + + | Home Phone [...] + | Author | [facility] | | | and Clarkeana | + + + | Organization | [facility] | | [...] | | | | | [place] [address] | | + + + + + | Valentín Saleh | ECON | [address] | | | | | [place] [address] | | + + + + + | Roberto Carlos Lennon | LEVI | Unknown | | + + + + + Care Team Providers + +------+ + | Care Senior Manager Mergers & Acquisitions Name | Role | Phone | + [...] | | | | [place], [place] | [address] Phone: | | | | | | [address] | [phone] | | | | | | Phone: | Fax: | | | | | | [phone] | [phone] | | | | | | Fax: | | | | | | | [phone] | | +--------+ + + + + [...] [place], | Ess[place] | | | | [place] [address] | [place] [address] | hypertension; | | | | [phone] | [phone] | Primary | | | | | [...] still feeling slightly sore though. 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 Arthritis of left ankle * [facility] Physiatry - AMB Referral 2. Essential [...] | | 2020 | Visit | | [facility] | | | | | | [place], | | | | | | [place] [address] | | | | | | [phone] | | | | | | | [...]
--- OUTSIDE RECORDS SUMMARY | ~2019-09-12 | XMS | Encounter Summary ---
Demographics + + + | Address | [address] | | | [place] [address] | + + + | Home Phone [...] | [facility] | | | and Clarkeana | + + + | Organization | [facility] [...] | | | | | [place] [address] | | + + + + + | Valentín Saleh | ECON | [address] | | | | | [place] [address] | | + + + + + | Roberto Carlos Lennon | LEVI | Unknown | | + + + + + Care Team Providers + +------+ + | Care Escalator Service Mechanic Name | Role | Phone | + +------+ + | Francois Pascal MD | PCP | | + +------+ + Encounter Details +--------+ + + + + | Date | Type | Department | Care Team | Description | +--------+ + + + + | 06/11/ | Hospital | [facility] | [place], | CHRONIC KIDNEY | | 2016 | Encounter | MED CTR LABORATORY | [address] | DISEASE STAGE III | | | | [address] [place] | [address] [facility] | (MODERATE); Vitamin | | | | [place], [place] | [address] [place], [place] | D deficiency | | | | [address] | [address] | | | | | [phone] | | | +--------+ + + + [...] | | [address] [facility] | | | | | | [place], | | | | | | [place] [address] | | | | | | [phone] | | | | | | | | +--------+---------+ + + + documented as of this encounter Procedures + +--------+ + + + | Procedure Name | Priori | Date/Time | Associated Diagnosis | Comments | | | ty | | | | + +--------+ + + + | PROTEIN/CREATININE | Routin | 06/12/2015 | CHRONIC KIDNEY | Results for this | | RATIO, URINE | e | 10:00 AM | DISEASE STAGE III | procedure are in the | | | | PDT | (MODERATE) Vitamin | results section. | | | | | D deficiency | | + +--------+ + + + documented in this encounter Results Protein/Creatinine Ratio, Urine (06/12/2015 [...] [address] | [place] | [phone] | | [facility] | | [address] | | | - LABORATORY | | [...]
--- OUTSIDE RECORDS SUMMARY | ~2019-09-12 | XMS | Encounter Summary ---
Demographics + + + | Address | [address] | | | [place] [address] | + + + | Home Phone [...] | Author | [facility] | | | and Clarkeana | + + + | Organization | [facility] | [...] | | | | | [place] [address] | | + + + + + | Valentín Saleh | ECON | [address] | | | | | [place] [address] | | + + + + + | Roberto Carlos Lennon | LEVI | [place] | | + + + + + Care Team Providers + +------+ + | Care Car Filler Name | Role | Phone | + +------+ + PCP | Unavailable | + +------+ + Encounter Details +--------+ + + + + | Date | Type | Department | Care Team | Description | +--------+ + + + + | 04/16/ | Hospital | [facility] | | | | 2009 | Encounter | MED CTR EMERGENCY | | | | | | CENTER [address] | | | | | | [place] | | | | | | [address] | | | | | | [phone] | | | +--------+ + + + [...] | | | | | | [place] [address] | | | | | | [phone] | | | | | | | | +--------+---------+ + + + documented as of this encounter Visit Diagnoses Not on filedocumented in this encounter"
--- OUTSIDE RECORDS SUMMARY | ~2019-09-12 | XMS | Encounter Summary ---
Demographics + + + | Address | [address] | | | [place] [address] | + + + | Home Phone [...] | Author | [facility] | | | and [place] | + + + | Organization | [facility] | | | [...] | | | | | [place] [address] | | + + + + + | Valentín Saleh | ECON | [address] | | | | | [place] [address] | | + + + + + | Roberto Carlos Lennon | LEVI | Unknown | | + + + + + Care Team Providers + +------+ + | Care Education Professional Name | Role | Phone | [...] | Glenn Richards MD | [address] | | | | | is of left | [address] | Burton Heck | | | | | ankle | [place] | [place] | | | | | Procedures | [place] | [address] | | | | | Sent to [facility] | [address] | Phone: | | | | | 10/05 | Phone: | [phone] | | | | | | [phone] | Fax: | | | | | | Fax: | [phone] | | | | | | [phone] | | +--------+ + + + + + Reason for Visit + +--------+ + | Reason | Onset | Comments | | | Date | | + +--------+ + | Referral | 10/02/ | | | | 2015 | | + +--------+ + Encounter Details +--------+ + + + + | Date | Type | Department | Care Team | Description | +--------+ + + + + | 10/02/ | Telephone | [facility] | Glenn Miramontes | Referral | | 2015 | | PHYSIATRY [address] | TMD [address] | | | | | [address] | [place], [place] | | | | | [place], [place] | [address] | | | | | [address] | | | | | | [phone] | | | +--------+ + + + [...] Miscellaneous Notes Telephone Encounter - Lashawn Wyman CMA - 10/06/2015 3:58 PM PDTPatient aware that th e referral will be sent to a provider in the [facility] which she is fine with. Patient is a delarosa that this referral will be faxed by our medical records team as soon as possible.Electr onically signed by Lashawn Wyman CMA at 10/06/2015 3:59 PM PDTTelephone Encounter - Glenn Styles MD - 10/06/2015 12:30 PM PDTOrder placed. Referred to Dr. Trevor Ochoa, an orthopedic surgeon that specializes in foot and ankle surgery. She should discuss all surgical options with him including a joint replacement and fusion. I will leave it up to h im to determine which is best. 1 2:32 PM PDTTelephone Encounter - Lashawn Wyman CMA - 10/06/2015 10:20 AM PDTDr. Roya ruby- see message below and advise. 16 10:24 AM PDTTelephone Encounter - Светлана Villasenor - 10/03/2015 10:13 AM PDTReceived a call from patient's spouse. He states that the injection she received in her ankle has not provi ded relief, and they are interested in pursuing surgical options that Dr. Miramontes recomme nded at last office visit. He would like to know if Dr. Miramontes is able to send a referra l to a surgeon for this. He would also like a call back with more information about which pr shad Miramontes recommends that Alyson see for this issue. documented in this encounter Plan of Treatment +--------+---------+ + + + | Date | Type | Specialty | Care Team | Description | +--------+---------+ + + + | 12/06/ | Office | Cardiology | Beverly Rupadanette, | | | 2019 | Visit | | [address] | | | | | | [place], | | | | | | [place] [address] | | | | | | [phone] | | | | | | | [...]
--- OUTSIDE RECORDS SUMMARY | ~2019-09-12 | XMS | Encounter Summary ---
Demographics + + + | Address | [address] | | | [place] [address] | + + + | Home Phone [...] Author | [facility] | | | and [place] | + + + | Organization | [facility] | | [...] | | | | | [place] [address] | | + + + + + | Valentín Saleh | ECON | [address] | | | | | [place] [address] | | + + + + + | Roberto Carlos Lennon | LEVI | Unknown | | + + + + + Care Team Providers + +------+ + | Care Human Resources Talent Manager Name | Role | Phone | + +------+ + | Francois Pascal MD | PCP | | + +------+ + Encounter Details +--------+ + + + + | Date | Type | Department | Care Team | Description | +--------+ + + + + | 11/25/ | Hospital | [facility] | Francois Pascal, | Confusion | | 2015 | Encounter | MED CTR ULTRASOUND | [address] | | | | | [address] [place] | [address] [place], | | | | | [place], [place] | [place] [address] | | | | | [address] | [phone] | | | | | [phone] | | | | | | | Parish Diaz, | | | | | | Technologist [...] | | | | mellitus) ([facility]) | | | | | | + [...] Progress Notes Francois Pascal MD - 11/26/2014 11:35 AM PDT Quick Note: Studies are abnormal, Carotids are narrowed but will need a better study ie MRA to eval. R TC a couple days after MRA which has been ordered is completed. documented in thi s encounter Plan of Treatment +--------+---------+ + + + | Date | Type | Specialty | Care Team | Description | +--------+---------+ + + + | 12/06/ | Office | Cardiology | Stephenie Paul, | | | 2019 | Visit | | [address] | | | | | | [place], | | | | | | [place] [address] | | | | | | [phone] | | | | | | | | +--------+---------+ + + + documented as of this encounter Procedures + +--------+ + + + | Procedure Name | Priori | Date/Time | Associated Diagnosis | Comments | | | ty | | | | + +--------+ + + + | VAS CAROTID DUPLEX | Routin | 11/25/2014 | Confusion | Results for this | | BILATERAL | e | 1:10 PM | | procedure are in the | | | | PDT | | results section. | + +--------+ + + + documented in this encounter Results VAS Carotid Duplex Bilateral (11/25/2014 1:10 PM PDT) + + | Specimen | + + | | + + + + + | Narrative | Performed At | + + + | BILATERAL DUPLEX CAROTID ULTRASOUND 11/25/2014 12:19 PM | [facility] | | CLINICAL HISTORY: confusion COMPARISON: CAROTID ULTRASOUND | [facility] | | FEBRUARY 2009 FINDINGS: Grayscale, [...] + + | Performing | Address | City/State/[facility] | Phone Number | | Organization | | | | + + + + + | [facility] | [address] | [place], [place] | [phone] | | [facility] | | [address] | | | - IMAGING | | | | + + + + + documented in this encounter Visit Diagnoses + + | Diagnosis | + + | Confusion Unspecified psychosis | + + documented in this encounter"
--- OUTSIDE RECORDS SUMMARY | ~2019-09-12 | XMS | Encounter Summary ---
Demographics + + + | Address | [address] | | | [place] [address] | + + + | Home Phone [...] Author | [facility] | | | and [place] | + + + | Organization | [facility] | [...] | | | | | [place] [address] | | + + + + + | Valentín Saleh | ECON | [address] | | | | | [place] [address] | | + + + + + | Roberto Carlos Lennon | LEVI | Unknown | | + + + + + Care Team Providers + +------+ + | Care Business Objects Consultant Name | Role | Phone | [...] [address] | | | | | [facility] | [address] [facility] | | | | | [place], [place] | [address] [place] | | | | | [address] | [address] | | | | | [phone] | | | +--------+ + + + [...] | | | | | | [place] [address] | | | | | | [phone] | | | | | | | | +--------+---------+ + + + documented as of this encounter Visit Diagnoses Not on filedocumented in this encounter"
--- OUTSIDE RECORDS SUMMARY | ~2019-09-12 | XMS | Encounter Summary ---
Demographics + + + | Address | [address] | | | [place] [address] | + + + | Home Phone [...] | Author | [facility] | | | and [place] | + + + | Organization | [facility] | | | and [place] | + + + | Address | Unknown | + + + | Phone | Unavailable | + + + Support + + + + + | Name | Relationship | Address | Phone | + + + + + | Sigrid Lennon | ECON | [address] | | | | | [place] [address] | | + + + + + | Valentín Saleh | ECON | [address] | | | | | [place] [address] | | + + + + + | Roberto Carlos Lennon | LEVI | Unknown | | + + + + + Care Team Providers + +------+ + | Care Dipper Clock And Watch Hands Name | Role | Phone | + +------+ + | No, Physician | PCP | Unavailable | + +------+ + Encounter Details +--------+ + + + + | Date | Type | Department | Care Team | Description | +--------+ + + + + | 10/03/ | Lab | [facility] | Fackenthall, | Chronic kidney | | 2018 | Requisition | MED CTR LABORATORY | [address] | disease, stage III | | | | [address] [place] | [address] | (moderate); 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 | [address] | [place] | [phone] | | [facility] | | [address] | | | - LABORATORY | | [...] mL/min/1.73m2 | [facility] | | | [place] | | | MEDICAL | | | [...] [address] | [place] | [phone] | | [facility] | | [address] | | | - LABORATORY | | [...] | Red Top | | | [facility] | | | Tube | | | [...] [address] | [place] | [phone] | | [facility] | | [address] | | | - LABORATORY | | [...] ST. | [address] | [place] | [phone] | | [facility] | | [address] | | | - LABORATORY | | [...]
--- OUTSIDE RECORDS SUMMARY | ~2019-09-12 | XMS | Encounter Summary ---
Demographics + + + | Address | [address] | | | [place] [address] | + + + | Home Phone [...] | Author | [facility] | | | and [place] | + + + | Organization | [facility] | | [...] | | | | | [place] [address] | | + + + + + | Valentín Saleh | ECON | [address] | | | | | [place] [address] | | + + + + + | Roberto Carlos Lennon | LEVI | Unknown | | + + + + + Care Team Providers + +------+ + | Care Vulnerability Assessment Analyst Name | Role | Phone | [...] 2014 | | PHYSIATRY [address] | ANATOMIC PATHOLOGY ASSISTANT | imaging) | | | | [address] | | | | | | [place] | | | | | | [address] | | | | | | [phone] | | | +--------+ + + + [...] 2020 | Visit | | MD Rojas [facility] | | | | | | [place] | | | | | | [place] [address] | | | | | | [phone] | | | | | | | | +--------+---------+ + + + documented as of this encounter Visit Diagnoses Not on filedocumented in this encounter"
--- OUTSIDE RECORDS SUMMARY | ~2019-09-12 | XMS | Encounter Summary ---
Demographics + + + | Address | [address] | | | [place] [address] | + + + | Home Phone [...] + | Author | [facility] | | | and [place] | + + + | Organization | [facility] | | [...] | | | | | [place] [address] | | + + + + + | Valentín Saleh | ECON | [address] | | | | | [place] [address] | | + + + + + | Roberto Carlos Lennon | LEVI | Unknown | | + + + + + Care Team Providers + +------+ + | Care Manager Customer Service Name | Role | Phone | [...] [place], | | | | | [place] [address] | [place] [id number] | | | | | [phone] | [phone] | | | | | | | [...] Yamileth Bah RN - 01/02/2014 4[place] change in NovoLog dose. Pharmacy customer assistance representative stated patient told her she wa s to take novolog 30 units before each meal. Per office note from Dr. Pascal, "She will add 3 units to every level that she is doing wi th the novolog." Notified pharmacy customer assistance representative of this. Pharmacy updated their orders but [...] | | | | | | [place] [id number] | | | | | | [phone] | | | | | | | | +--------+---------+ + + + documented as of this encounter Visit Diagnoses + + | Diagnosis | + + | Type II or unspecified type diabetes mellitus without mention of complication, not | | stated as uncontrolled - Primary | + + documented in this encounter
--- OUTSIDE RECORDS SUMMARY | ~2019-09-12 | XMS | Encounter Summary ---
Demographics + + + | Address | [address] | | | [place] [address] | + + + | Home Phone [...] Author | [facility] | | | and [place] | + + + | Organization | [facility] | [...] | | | | | [place] [address] | | + + + + + | Valentín Saleh | ECON | [address] | | | | | [place] [address] | | + + + + + | Roberto Carlos Lennon | LEVI | Unknown | | + + + + + Care Team Providers + +------+ + | Care Yard Demurrage Clerk Name | Role | Phone | [...] | instability | [address] | [place] | | | | n | [address] | [address] | [place], | | | | | (ICD-10-CM) | [place] | [place] [address] | | | | | - [address] | [place] | Phone: | | | | | (ICD-9-CM) - | [address] | [phone] | | | | | Gait | Phone: | Fax: | | | | | instability | [phone] | [phone] | | | | | Procedures | Fax: | | | | | | pt eval | [phone] | | +--------+ + + + + + Encounter Details +--------+---------+ + + + | Date | Type | Department | Care Team | Description | +--------+---------+ + + + | 01/08/ | Office | [facility] | Francois Pascal, | Posture imbalance | | 2015 | Visit | MED CTR THERAPY PT | [address] | (Primary Dx); | | | | OP [address] | [address] [place], | Impaired functional | | | | [place] | [place] [address] | mobility, balance, | | | | [address] | [phone] | gait, and endurance; | | | | [phone] | | Left ankle pain | | | | | Kely Quinn B, PT | | | | | | [address] | | | | | | [place] | | | | | | [address] | | | | | | | [...] be different from t he original. [facility] CTR THERAPY PT OP [address] [place] [address] Physical Therapy Daily Treatment Note Date: 01/08/2015 Patient Information Patient Name: Alyson Lennon Date of : 1930 Age: 84 y.o. Encounter Diagnoses Code Name Primary? R29.3 Posture imbalance Yes Z74.09 Impaired functional mobility, balance, gait, and endurance M25.572 Left ankle pain Date of Onset: 10/24/14 Referring Provider: Francois Pascal MD Rehab Precautions Office Visit from 12/24/2014 in [facility] CTR THERAPY PT OP Rehab Precautions Precautions [...] Kely Green PT, 01/08/2015 18:02 Patient Name: Aylson Lennon/: 1930/ documented in this encou nter Plan of Treatment +--------+---------+ + + + | Date | Type | Specialty | Care Team | Description | +--------+---------+ + + + | 12/06/ | Office | Cardiology | Stephenie Paul, | | | 2019 | Visit | | MD Rojas [facility] [place] | | | | | | [place], | | | | | | [place] [address] | | | | | | [phone] | | | | | | | [...]
--- OUTSIDE RECORDS SUMMARY | ~2019-09-12 | XMS | Encounter Summary ---
Demographics + + + | Address | [address] | | | [place] [address] | + + + | Home Phone [...] Author | [facility] | | | and [place] | + + + | Organization | [facility] | [...] | | | | | [place] [address] | | + + + + + | Valentín Saleh | ECON | [address] | | | | | [place] [address] | | + + + + + | Roberto Carlos Lennon | LEVI | Unknown | | + + + + + Care Team Providers + +------+ + | Care Bods Developer Name | Role | Phone | [...] Refill | | 2015 | | MEDICINE [facility] | [address] | | | | | AVE [place], | [address] [place], | | | | | [place] [address] | [place] [address] | | | | | [phone] | [phone] | | | | | | | [...] | | | | | | [place] [address] | | | | | | [phone] | | | | | | | | +--------+---------+ + + + documented as of this encounter Visit Diagnoses Not on filedocumented in this encounter"
--- OUTSIDE RECORDS SUMMARY | ~2019-09-12 | XMS | Encounter Summary ---
Demographics + + + | Address | [address] | | | [place] [address] | + + + | Home Phone [...] | Author | [facility] | | | and [place] | + + + | Organization | [facility] | [...] | | | | | [place] [address] | | + + + + + | Valentín Saleh | ECON | [address] | | | | | [place] [address] | | + + + + + | Roberto Carlso Lennon | LEVI | Unknown | | + + + + + Care Team Providers + +------+ + | Care Shoulder Sawyer Name | Role | Phone | + [...] | instability | [address] | [place] | | | | n | [address] | [address] | [place], | | | | | (ICD-10-CM) | [place] | [place] [address] | | | | | - [address] | [place] | Phone: | | | | | (ICD-9-CM) - | [address] | [phone] | | | | | Gait | Phone: | Fax: | | | | | instability | [phone] | [phone] | | | | | Procedures | Fax: | | | | | | pt eval | [phone] | | +--------+ + + + + + Encounter Details +--------+---------+ + + + | Date | Type | Department | Care Team | Description | +--------+---------+ + + + | 12/24/ | Office | [facility] | Francois Pascal, | Unsteady (Primary | | 2015 | Visit | MED CTR THERAPY PT | [place] [address] | Dx); Posture | | | | OP [address] | [address] [place], | imbalance; Impaired | | | | [place] | [place] [address] | functional mobility, | | | | [address] | [phone] | balance, gait, and | | | | [phone] | | endurance | | | | | Kely Quinn, PT | | | | | | [address] | | | | | | [place] | | | | | | [address] | | | | | | | [...] 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 Patient's Primary Functional Goal 3: Increase ankle [...] Goal 1 Status: initiated HEP Treatment Plan/Interventions: 88584 PT Evaluation, 11793 Manual Therapy, 84636 Neuromuscular Re-education, 31255 Gait Tra ining, 40346 Therapeutic Exercise, 93771 Therapeutic Activity, 30992 Self Care/Home Manageme nt Requested # of Visits: 24 2x/wk for 12 weeks Certification From: 12/24/14 Certification To: 03/18/15 Kely Green PT Patient Name: Alyson Lennon/: 1930/ Kely Miller PT - 12/24/2014 3:13 PM PDT [facility] CTR THERAPY PT OP [address] [place] [address] Physical Therapy Initial Assessment Date: 12/24/2014 Patient [...] DM type 2 (diabetes mellitus, type 2) ([facility]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 Patient's Primary Functional Goal 3: Increase ankle [...] Start of Care Date: 12/24/14 Treatment Plan/Interventions 61620 PT Evaluation, 21931 Manual Therapy, 69925 Neuromuscular Re-education, 66229 Gait Tra ining, 98980 Therapeutic Exercise, 21592 Therapeutic Activity, 16405 Self Care/Home Manageme nt Patient and/or family [...] | | | | | | [place] [address] | | | | | | [phone] | | | | | | | [...]
--- OUTSIDE RECORDS SUMMARY | ~2019-09-12 | XMS | Encounter Summary ---
Demographics + + + | Address | [address] | | | [place] [address] | + + + | Home Phone [...] [facility] | | | and [place] | + + + | Organization | [facility] | [...] | | | | | [place] [address] | | + + + + + | Valentín Saleh | ECON | [address] | | | | | [place] [address] | | + + + + + | Roberto Carlos Lennon | LEVI | Jeyson | | + + + + + Care Team Providers + +------+ + | Care Creping Machine Operator Name | Role | Phone | + +------+ + PCP | Unavailable | + +------+ + Encounter Details +--------+ + + + + | Date | Type | Department | Care Team | Description | +--------+ + + + + | 02/17/ | Hospital | [facility] | Francois Pascal, | | | 2008 | Encounter | MED CTR LABORATORY | [address] | | | | | [address] [place] | [address] [place], | | | | | [place] | [place] [address] | | | | | [address] | [phone] | | | | | [phone] | | | +--------+ + + + [...] | | | | | | [place] [address] | | | | | | [phone] | | | | | | | | +--------+---------+ + + + documented as of this encounter Visit Diagnoses Not on filedocumented in this encounter"
--- OUTSIDE RECORDS SUMMARY | ~2019-09-12 | XMS | Encounter Summary ---
Demographics + + + | Address | [address] | | | [place] [address] | + + + | Home Phone [...] | [facility] | | | and [place] | + + + | Organization | [facility] | | [...] | | | | | [place] [address] | | + + + + + | Valentín Saleh | ECON | [address] | | | | | [place] [address] | | + + + + + | Roberto Carlos Lennon | LEVI | Unknown | | + + + + + Care Team Providers + +------+ + | Care Water Pollution Specialist Name | Role | Phone | [...] | Francois Tello MD | [address] | | | | | stenosis, | [address] | [place], | | | | | bilateral | [address] | [place] | | | | | Procedures | [place] | [address] | | | | | MRI | [place] | Phone: | | | | | Angiogram | [address] | [phone] | | | | | Neck w wo | Phone: | Fax: | | | | | Contrast | [phone] | [phone] | | | | | | Fax: | | | | | | | [phone] | | +--------+--------+ + + + + [...] | Francois Tello MD | [address] | | | | | stenosis, | [address] | [place], | | | | | bilateral | [address] | [place] | | | | | Procedures | [place] | [address] | | | | | MRI | [place] | Phone: | | | | | Angiogram | [address] | [phone] | | | | | Neck w wo | Phone: | Fax: | | | | | Contrast | [phone] | [phone] | | | | | | Fax: | | | | | | | [phone] | | +--------+--------+ + + + + Encounter Details +--------+ + + + + | Date | Type | Department | Care Team | Description | +--------+ + + + + | 12/05/ | Hospital | [facility] | Francois Pascal, | Carotid stenosis, | | 2015 | Encounter | MED CTR MRI [address] | bilateral | | | | [place], | [address] [place], | | | | | [place] [address] | [place] [address] | | | | | [phone] | [phone] | | | | | | | [...] | | | | | mellitus) ([facility]) | DINNER | | | | | [...] | | | | | | [place] [address] | | | | | | [phone] | | | | | | | [...] None. PROTOCOL: MRA of the neck | [facility] | | was performed with axial 3-D bjmm-di-zarryr technique without | [facility] | | [...] | | | on the axial 3-D wsed-qk-xgawkh images due to the small size. The [...] | | was performed with axial 3-D vzww-kx-fkhjko techniquewithout contrast and coronal | | dynamic [...] seen on the axial 3-D | | xoik-xc-sznkcpxtzljh due to the small size. The left [...] not well seen on the axial 3-D ztvu-ql-xlpcxj | |images due to the small size. [...] + | [facility] | [address] | [place] | [phone] | | [facility] | | [address] | | | - IMAGING | | [...]
--- OUTSIDE RECORDS SUMMARY | ~2019-09-12 | XMS | Encounter Summary ---
Demographics + + + | Address | [address] | | | [place] [address] | + + + | Home Phone [...] | Author | [facility] | | | and Clarkeana | + + + | Organization | [facility] | [...] | | | | | [place] [address] | | + + + + + | Valentín Saleh | ECON | [address] | | | | | [place] [address] | | + + + + + | Roberto Carlos Lennon | LEVI | Unknown | | + + + + + Care Team Providers + +------+ + | Care Waiter/Waitress Second Class Name | Role | Phone | + +------+ + | Francois Pascal MD | PCP | | + +------+ + Encounter Details +--------+ + + + + | Date | Type | Department | Care Team | Description | +--------+ + + + + | 02/25/ | [facility] | [facility] | Francois Pascal, | | | 2010 | Encounter | MED CTR XRAY [address] | | | | | [place] | [address] [place], | | | | | [place] [address] | [place] [address] | | | | | [phone] | [phone] | | | | | | | [...] | | | | | | [place] [address] | | | | | | [phone] | | | | | | | | +--------+---------+ + + + documented as of this encounter Procedures + +--------+ + + + | Procedure Name | Priori | Date/Time | Associated Diagnosis | Comments | | | ty | | | | + +--------+ + + + | TAWNYA DIGITAL | | 02/25/2011 | | Results for this | | SCREENING BILATERAL | | 9:10 AM | | procedure are in the | | | | PST | | results section. | + +--------+ + + + documented in this encounter Results TAWNYA Digital Screening Bilateral (02/25/2011 9:10 AM PST) + + | Specimen | + + | | + + + + + | Narrative | Performed At | + + + | [facility] Diagnostic [facility] | [facility] | | [address] [facility] | [facility] | | MAMMOGRAM SCREENING, 02/25/2011 | DIAG IMG | | CLINICAL HISTORY: SCREENING MAMMOGRAM. COMPARISON: 2008, | | | 2009 mammogram. TECHNIQUE: Bilateral digital CC and MLO. | | | FINDINGS: There is symmetric asymmetry with breast parenchyma | | | localized to the upper outer quadrant. This is a stable pattern. | | | No new masses. Intramammary lymph node is present in the left | | | breast. No architectural distortion. Benign and vascular | | | calcifications are present. No suspicious clusteri ng of | | | microcalcifications. IMPRESSION: 1. ACR BIRADS | | | CLASSIFICATION: CATEGORY 2, BENIGN FINDINGS. RECOMMENDATION: | | | CONTINUED SCREENING PER ACS GUIDELINES AND MONTHLY SELF BREAST EXAM. | | | Dictated Date/Time: 02/25/2011 17:26 Transcribed | | | Date/Time: 02/25/2011 17:29 Refractory Worker: | | | <Electronically Signed by David Jon MD> 02/25/112040 | | + + + + + | Procedure Note | + + | Al, Rad Conversion - 04/13/2013 4:27 PM [facility] | | Diagnostic Imaging Department [address] [facility] | | MAMMOGRAM SCREENING, 02/25/2011 CLINICAL HISTORY: | | SCREENING MAMMOGRAM. COMPARISON: 2008, 2009 mammogram. TECHNIQUE: Bilateral digital | | CC and MLO. FINDINGS: There is symmetric asymmetry with breast parenchyma localized | | to the upper outer quadrant. This is a stable pattern. No new masses. Intramammary | | lymph node is present in the left breast. No architectural distortion. Benign and | | vascular calcifications are present. No suspicious clustering of microcalcifications. | | IMPRESSION: 1. ACR BIRADS CLASSIFICATION: CATEGORY 2, BENIGN FINDINGS. | | RECOMMENDATION: CONTINUED SCREENING PER ACS GUIDELINES AND MONTHLY SELF BREAST EXAM. | | Dictated Date/Time: 02/25/2011 17:26Transcribed Date/Time: 02/25/2011 | | 17:29Transcriptionist: <Electronically Signed by David Jon MD> 02/25/11 | | 1 | | | |FINDINGS: There is symmetric asymmetry with breast parenchyma localized to the upper outer quadrant. | | This is a stable pattern. No new masses. Intramammary lymph node is present in the left breast. | |No architectural distortion. Benign and vascular calcifications are present. No suspiciou s clusteri | |ng of microcalcifications. | | | |IMPRESSION: | |1. ACR BIRADS CLASSIFICATION: CATEGORY 2, BENIGN FINDINGS. | | | |RECOMMENDATION: CONTINUED SCREENING PER ACS GUIDELINES AND MONTHLY SELF BREAST EXAM. | | | | | | | | Dictated Date/Time: 02/25/2011 17:26 | |Transcribed Date/Time: 02/25/2011 17:29 | |Refractory Worker: | |<Electronically Signed by David Jon MD> 02/25/112040 | + + + +---------+ + + [...]
--- OUTSIDE RECORDS SUMMARY | ~2019-09-12 | XMS | Encounter Summary ---
Demographics + + + | Address | [address] | | | [place] [address] | + + + | Home Phone [...] | Author | [facility] | | | and Clarkeana | + + + | Organization | [facility] | | | and [...] | | | | | [place] [address] | | + + + + + | Valnetín Saleh | ECON | [id number] | | | | | [place] [address] | | + + + + + | Roberto Carlos Lennon | LEVI | Unknown | | + + + + + Care Team Providers + +------+ + | Care Mechanical Engineer Name | Role | Phone | [...] + | 10/20/ | Telephone | [facility] | Francois Pascal, | Pharmacy / Med; SNF | | 2019 | | MEDICINE RODGER | [address] | Discharge | | | | [address] | [address] [place], | | | | | [place] | [place] [address] | | | | | [address] | [phone] | | | | | [phone] | | | +--------+ + + + [...] 11:53 AM PDTMedications ordered to [facility] aricVa Bridget notified. ddendum Note - [...] advise. el ephone Encounter - Kacy Delaney Laborer Plumbing - 10/26/2018 11:37 AM PDTPaperwork arnulfo wood to Senthil RN elephone Encounter - Lisa Pittman RN - 10/25/2018 5:23 PM PDTCalled Renee Giang and patient was discharged 10/18/2018 to the adult family home. Called Theresa and she told me a list of what she needed right away. Insulin novolog Insulin lantus atrovastatin lexapro Methotrexate Sent in all but the methotrexate per protocol to [facility] in [place]. The methotrexate bebe l need to be [...] She is also requesting bed rails to budget assistant the patient in her movement and [...] PM PDTReceived phone call from Bridget Xie, rebeamer of the [facility] in [place]. Her phone number is [phone]. States that since the patient is new to her facility, she needs all new medication order se nt to [facility] in [place]. States she only has about 3 days [...] PM PDTCalled and left a message at [facility] sr. social media & mobile manager to please return my call MARIANNE regarding patient. I also called both numbers listed for [facility] trying to reach [facility] [place] . I left a voicemail for a return call on both numbers. elephone Encounter - Caprice Ashley RN - 10/26/19 19 9:25 AM PDTLeft message for classification case manager at [facility]. Is patient being admitted to their facility and if so when will they be admitted?Electronic ally signed by Caprice Ashley RN at 10/25/2018 9:26 AM PDTTelephone Encounter - Nohelia Jordan - 10/25/2018 7:49 AM PDTTammara called back from [facility] ome needing to speak with the nurse. She needs written orders for all the patients medicati ons and also needs all medications sent to [facility] in [place] as she is almost completely out of her medications and insulin. They also need written orders for all of the patient's o [id number] medications as well, arm protectors, etc. She stated current OTC medicatio ns that need written orders are folic acid, Milk of Magnesia, MiraLax, aspirin, calcium, vit piper D3, acetaminophen and Aspercreme. Theresa can be reached at [phone] or [phone] . elephone Encounter - Caprice Ashley RN [...] alter medications, asked to be faxed to [phone], please advise. Juanis avilanically signed by Roshni Nance at 10/20/2018 1:55 PM PDTTelephone Encounter - Diana Nance - 10/20/2018 11:01 AM PDTTadebo from [facility] called stating patient was transferred to her facility. Needs pharmacy to changed to [facility] in [place]. Also stated she is out of syringes, Renee Giang left her with none, please advise. Candace [...] | | | | | | [place] [address] | | | | | | [phone] | | | | | | | [...]
--- OUTSIDE RECORDS SUMMARY | ~2019-09-12 | XMS | Encounter Summary ---
Demographics + + + | Address | [address] | | | [place] [address] | + + + | Home Phone [...] | Author | [facility] | | | and [place] | + + + | Organization | [facility] | | [...] | | | | | [place] [address] | | + + + + + | Valentín Saleh | ECON | [id number] | | | | | [place] [address] | | + + + + + | Roberto Carlos Lennon | LEVI | [place] | | + + + + + Care Team Providers + +------+ + | Care Audiovisual Production Specialist Name | Role | Phone | + +------+ + PCP | Unavailable | + +------+ + Encounter Details +--------+ + + + + | Date | Type | Department | Care Team | Description | +--------+ + + + + | 03/13/ | Hospital | [facility] | Mauricio Rider | | | 2010 | Encounter | MED CTR MP INTRA OP | [address] [facility] | | | | | [address] | [place] | | | | | [place] | [address] | | | | | [address] | | | | | | [phone] | | | +--------+ + + + [...] | | | | | | [place] [address] | | | | | | [phone] | | | | | | | | +--------+---------+ + + + documented as of this encounter Visit Diagnoses Not on filedocumented in this encounter"
--- OUTSIDE RECORDS SUMMARY | ~2019-09-12 | XMS | Encounter Summary ---
Demographics + + + | Address | [address] | | | [place] [address] | + + + | Home Phone [...] + | Author | [facility] | | | and [place] | + + + | Organization | [facility] | [...] | | | | | [place] [address] | | + + + + + | Valentín Saleh | ECON | [phone] | | | | | [place] [address] | | + + + + + | Roberto Carlos Lennon | LEVI | Unknown | | + + + + + Care Team Providers + +------+ + | Care Brick Tosser Name | Role | Phone | + [...] | hypertension | [address] | [address] | | | | | Chronic | [place] [address] | | | | | kidney | [place] | [address] | | | | | disease, | [address] | [place], | | | | | stage III | Phone: | [place] [address] | | | | | (moderate) | [phone] | Phone: | | | | | (HCC) Type | Fax: | [phone] | | | | | II or | [phone] | Fax: | | | | | unspecified | | [phone] | | | | | type | [...] | | | | | | | [place] OFFICE | | | | | | [...] | (MODERATE) (Primary | | | | [place], [place] | [address] | Dx); Hypertension, | | | | [address] | [address] | renal disease, stage | | | | [phone] | | 1-4 or unspecified | | | | | | chronic kidney | | | | | | disease; DM type 2, | | | | | | uncontrolled, 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
--- OUTSIDE RECORDS SUMMARY | ~2019-09-12 | XMS | Encounter Summary ---
Demographics + + + | Address | [address] | | | [place] [address] | + + + | Home Phone [...] Author | [facility] | | | and [place]ana | + + + | Organization | [facility] [...] | | | | | [place] [address] | | + + + + + | Valentín Saleh | ECON | [address] | | | | | [place] [address] | | + + + + + | Roberto Carlos Lennon | LEVI | [place] | | + + + + + Care Team Providers + +------+ + | Care Security System Sales Consultant Name | Role | Phone | + +------+ + PCP | Unavailable | + +------+ + Encounter Details +--------+ + + + + | Date | Type | Department | Care Team | Description | +--------+ + + + + | 01/14/ | Hospital | [facility] | Francois Pascal, | | | 2009 | Encounter | MED CTR LABORATORY | [address] | | | | | [address] [place] | [address] [place], | | | | | [place] | [place] [address] | | | | | [address] | [phone] | | | | | [phone] | | | +--------+ + + + [...] | | | | | | [place] [address] | | | | | | [phone] | | | | | | | | +--------+---------+ + + + documented as of this encounter Visit Diagnoses Not on filedocumented in this encounter"
--- OUTSIDE RECORDS SUMMARY | ~2019-09-12 | XMS | Encounter Summary ---
Demographics + + + | Address | [address] | | | [place] [address] | + + + | Home Phone [...] + | Author | [facility] | | | and Clarkeana | + + + | Organization | [facility] | [...] | | | | | [place] [address] | | + + + + + | Valentín Saleh | ECON | [address] | | | | | [place] [address] | | + + + + + | Roberto Carlos Lennon | LEVI | Unknown | | + + + + + Care Team Providers + +------+ + | Care Animal Taxonomist Name | Role | Phone | + [...] [phone] | | | | | | [place], [place] | | | | | | [address] | | | | | | [phone] | | | +--------+ + + + [...] | 2019 | Visit | | [address] | | | | | | [place], | | | | | | [place] [address] | | | | | | [phone] | | | | | | | [...]
--- OUTSIDE RECORDS SUMMARY | ~2019-09-12 | XMS | Encounter Summary ---
Demographics + + + | Address | [address] | | | [place] [address] | + + + | Home Phone [...] [facility] | | | and [place]ana | + + + | Organization | [facility] | | [...] | | | | | [place] [address] | | + + + + + | Valentín Saleh | ECON | [phone] | | | | | [place] [address] | | + + + + + | Roberto Carlos Lennon | LEVI | Unknown | | + + + + + Care Team Providers + +------+ + | Care Cook Dinner Name | Role | Phone | + [...] [place], | | | | | [place], [place] | [place] [address] | | | | | [address] | [phone] | | | | | [phone] | | | +--------+ + + + [...] | | | | | | [place] [address] | | | | | | [phone] | | | | | | | [...] Resulting Agency Comment | + + | [facility] [place] | + + + +---------+ + [...] Resulting [facility] Comment | + + | [facility] | + + + +---------+ + + [...] Resulting Agency Comment | + + | [facility] [place] | + + + +---------+ [...] Resulting Agency Comment | + + | [facility] [place], [place] | + + + +---------+ + [...] Resulting Agency Comment | + + | [facility], [place] | + + + +---------+ + [...] Resulting Agency Comment | + + | [facility] [place], [place] | + + + +---------+ + [...] Resulting Agency Comment | + + | [facility] [place] | + + + +---------+ + [...] Resulting Agency Comment | + + | [facility] [place], [place] | + + + +---------+ + [...] Resulting Agency Comment | + + | [facility], [place] | + + + +---------+ + [...] Resulting Agency Comment | + + | [facility] [place], [place] | + + + +---------+ + [...] Resulting Agency Comment | + + | [facility] | + + + +---------+ + [...] Resulting Agency Comment | + + | [facility] [place], [place] | + + + +---------+ + [...] Resulting Agency Comment | + + | [facility], [place] | + + + +---------+ + [...] Resulting Agency Comment | + + | [facility] [place] [place] | + + + +---------+ + [...] Resulting Agency Comment | + + | [facility] [place] | + + + +---------+ + + | Performing | Address | City/State/Zipcode | Phone Number | | Organization | | | | + +---------+ + + | EXTERNAL LAB | | | | + +---------+ + + documented in this encounter Visit Diagnoses Not on filedocumented in this encounter"
--- OUTSIDE RECORDS SUMMARY | ~2019-09-12 | XMS | Encounter Summary ---
Demographics + + + | Address | [address] | | | [place] [address] | + + + | Home Phone [...] + | Author | [facility] | | | and [place] | + + + | Organization | [facility] [...] | | | | | [place] [address] | | + + + + + | Valentín Saleh | ECON | [address] | | | | | [place] [address] | | + + + + + | Roberto Carlos Lennon | LEVI | Unknown | | + + + + + Care Team Providers + +------+ + | Care Alum Plant Operator Name | Role | Phone | + +------+ + | Francois Pascal MD | PCP | | + +------+ + Encounter Details +--------+ + + + + | Date | Type | Department | Care Team | Description | +--------+ + + + + | 07/30/ | [facility] | [facility] | Glenn Miramontes | Left ankle pain | | 2015 | Encounter | MED CTR XRAY [address] | [address] | | | | | [place] | [place], [place] | | | | | [place] [address] | [id number] | | | | | [phone] | | | +--------+ + + + [...] | 2019 | Visit | | [address] [facility] | | | | | | [place], | | | | | | [place] [address] | | | | | | [phone] | | | | | | | [...] [address] | [place] | [phone] | | [facility] | | [address] | | | - IMAGING | | | | + + + + + documented in this encounter Visit Diagnoses + + | Diagnosis | + + | Left ankle pain Pain in joint, ankle and foot | + + documented in this encounter"
--- OUTSIDE RECORDS SUMMARY | ~2019-09-12 | XMS | Encounter Summary ---
Demographics + + + | Address | [address] | | | [place] [address] | + + + | Home Phone [...] [facility] | | | and Clarkeana | + + + | Organization | [facility] | [...] | | | | | [place] [address] | | + + + + + | Valentín Saleh | ECON | [address] | | | | | [place] [address] | | + + + + + | Roberto Carlos Lennon | LEVI | Unknown | | + + + + + Care Team Providers + +------+ + | Care Licensed And Certified Midwife Name | Role | Phone | + [...] + | 12/27/ | Refill | [facility] | Stephenie Paul, | Medication Refill | | 2012 | | CARDIOLOGY [address] | MD [address] [place] | | | | | [place], | [place], | | | | | [place] [address] | [place] [address] | | | | | [phone] | [phone] | | | | | | | [...] | | | | | | [place] [address] | | | | | | [phone] | | | | | | | | +--------+---------+ + + + documented as of this encounter Visit Diagnoses Not on filedocumented in this encounter"
--- OUTSIDE RECORDS SUMMARY | ~2019-09-12 | XMS | Encounter Summary ---
Demographics + + + | Address | [address] | | | [place] [address] | + + + | Home Phone [...] | Author | [facility] | | | and Clarkeana | + + + | Organization | [facility] [...] | | | | | [place] [address] | | + + + + + | Valentín Saleh | ECON | [address] | | | | | [place] [address] | | + + + + + | Roberto Carlos Lennon | LEVI | Unknown | | + + + + + Care Team Providers + +------+ + | Care School Child Care Attendant Name | Role | Phone | + +------+ + | Francois Pascal MD | PCP | | + +------+ + Reason for Visit + + + | Reason | Comments | + + + | Follow-up, Office | | | Visit | | + + + Encounter Details +--------+---------+ + + + | Date | Type | Department | Care Team | Description | +--------+---------+ + + + | 10/25/ | Office | [facility] | Francois Pascal, | Atrial fibrillation, | | 2018 | Visit | MEDICINE [address] | [address] | unspecified type | | | | [address] [place], | [address] [place], | ([facility]) (Primary Dx); | | | | [place] [address] | [place] [address] | Diabetes mellitus | | | | [phone] | [phone] | due to underlying | | | | | | condition with stage | | | | | | 3 chronic kidney | | | | | | disease, with | | | | | | long-term current | | | | | | use of insulin | | | | | | ([facility]); CHRONIC | | | | | | KIDNEY DISEASE STAGE | | | | | | III (MODERATE); | | | | | | Mild dementia (HCC); | | | | | | Primary | | | | | | osteoarthritis of | | | | | | left ankle; | | | | | | Autoimmune | | | | | | dermatitis | +--------+---------+ + + + Social History [...] + | Blood Pressure | 110/60 | 10/25/2017 9:40 AM | | | | | PDT | | + + + + + | Pulse | 72 | 10/25/2017 9:40 AM | | | | | PDT | | + + + + + | Temperature | 36.3 C (97.3 F) | 10/25/2017 9:40 AM | | | | | PDT | | + + + + + | Respiratory Rate | - | - | | + + + + + | Oxygen Saturation | 95% | 10/25/2017 9:40 AM | | | | | PDT | | + + + + + | Inhaled Oxygen | - | - | | | Concentration | | | | + + + + + | Weight | 65.3 kg (144 lb) | 10/25/2017 9:40 AM | | | | | [...] encounter Progress Notes Francois Pascal MD - 10/25/2017 9:45 AM PDTFormatting of this note might be different f rom the original. Subjective: Patient ID: Alyson Lennon is a 86 y.o. female. HPI CAD, Afib on xarelto, Followed by Cardiology, No recent CP or SOB. Dementia, no recent Delerium Her states her memory is "about the same for the t year." She states her mood is "not bad" Diabetes, She is on the lantus and novolog. She has no complaint of foot sore, There is no complaint of P, P or P. OA, Wheelchair bound for the last several years. She is not in therapy at this point. Glossitis/ Autoimmune Dermatitis, The skin on the forehead Flaky and red but is not painf ul or itchty at this point. She is on MTX. She is seeing dermatology weekly. CKD, She is still trying to drink plenty of fluid. This is now followed by Kemar mccain. This is improved. Past Medical History: Type 2 DM with [...] VSD Father 50 Pneumonia Family Hx of Conroe's chorea Sister and 2 brothers: CAD, Conroe's Disease to [place] - with 2 Healthy Children No kidney disease in family. Social History: Born in [facility] for [facility] years. and Remarried 2 sons local. Patient has never smoked. Alcohol Use - no Exercise: None Caffeine: Decaf only Living Situation: Lives with spouse Review of Systems Constitutional: no fever, No [...] Depression, no anxiety,no sleep problems Objective: BP 110/60 | Pulse 72 | Temp 36.3 C (97.3 F) (Temporal) | Wt 65.3 kg (144 lb) | SpO2 95% | BMI 23.24 kg/m Physical Exam Heent, WNL, No carotid bruit Chest CTAB Heart irreg R&R /s M Abd S,NT,ND,BS+ Ext, no CCor E Neuro Non-focal Lymph, no cervical, axillary, inguinal adenopathy Musculoskeletal, no gross deformity or loss or range of motion Skin, no gross lesions Assessment: 1. Atrial fibrillation, unspecified type ([facility]) 2. 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 CHRONIC KIDNEY DISEASE STAGE III (MODERATE) 4. Mild dementia 5. 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 I dont this her dementia has progressed. It is mild to m oderate. Her renal function seems to be doing well. Her diabetes is not controlled. Will increase the lantus from 10 to 12 bid and increase the SS short acting from 0 to 4 baseline and see how this goes. RTc 3 months with labs prior,. Otherwise continue current medical regimen. documented in this encounter Plan of Treatment +--------+---------+ + + + | Date | Type | Specialty | Care Team | Description | +--------+---------+ + + + | 12/06/ | Office | Cardiology | Stephenie Paul, | | | 2019 | Visit | | MD [address] | | | | | | [place], | | | | | | [place] [address] | | | | | | [phone] | | | | | | | | +--------+---------+ + + + documented as of this encounter Results CBC with Differential (10/10/2018 3:20 PM PDT) + + + + + + | Component | Value | Ref Range | Performed | Pathologist | | | | | At | Signature | + + + + + + | White Blood | 10.5 | 4.0 - 11.0 K/uL | [facility] | | | Cells | | | [facility] | | | [facility] | | | | | [facility] | | | | | | [facility] | | + + + + + + | Red Blood | 3.77 | 3.70 - 5.20 | [facility] | | | Cells | | M/uL | [facility] | | | | | [facility] | | | | | | [facility] | | | | | | LAB[facility]ORY | | + + + + + + | Hemoglobin | 12.9 | 11.5 - 16.0 | [facility] | | | | | g/dL | [facility] | | [facility] | | | | | | [facility] | | | | | | [facility] | | + + + + + + | Hematocrit | 39.0 | 34.0 - 47.0 % | [facility] | | | | | | [facility] | [facility] | | | | | [facility] | | | | | | [facility] | | + + + + + + | MCV | 103.4 (H) | 83.0 - 101.0 fL | [facility] | | | | | | [facility] | [facility] | | | | | [facility] | | | | | | [facility] | | + + + + + + | MCH | 34.2 | 28.0 - 35.0 pg | [facility] | | | | | | [facility] | | | | | [facility] | | | | | | [facility] | | | | | | [facility] | | + + + + + + | MCHC | 33.1 | 32.0 - 36.0 | [facility] | | | | | g/dL | [facility] | | [facility] | | | | | | [facility] | | | | | | LAB[facility] | | + + + + + + | RDW-CV | 14.8 | <15.0 % | [facility] | | | | | | [facility] | [facility] | | | | | [facility] | | | | | | [facility] | | + + + + + + | RDW-SD | 56.9 (H) | 35.1 - 46.3 fL | [facility] | | | | | | [facility] | [facility] | | | | | [facility] | | | | | | [facility] | | + + + + + + | Platelet | 182 | 140 - 440 K/uL | [facility] | | | Count | | | [facility] | | [facility] | | | | | | [facility] | | | | | | [facility] | | + + + + + + | MPV | 11.0 | 6.5 - 12.4 fL | [facility] | | | | | | [facility] | | [facility] | [facility] | | | | | | [facility] | | | | | | [facility] | | + + + + + + | % | 57.4 | 45.0 - 82.0 % | [facility] | | | Neutrophils | | | [facility] | | | [facility] | [facility] | | | | | | [facility] | | | | | | LAB[facility] | | + + + + + + | % | 24.5 | 20.0 - 45.0 % | [facility] | | | Lymphocytes | | | [facility] | | | | | [facility] | | | | | | [facility] | | | | | | [facility] | | + + + + + + | % Monocytes | 11.4 | 4.0 - 12.0 % | [facility] | | | | | | [facility] | | | [facility] | [facility] | | | | | | [facility] | | | | | | [facility] | | + + + + + + | % | 5.9 (H) | 0.0 - 5.0 % | [facility] | | | Eosinophils | | | [facility] | | | | | [facility] | | | | | | [facility] | | | | | | [facility] | | + + + + + + | % Basophils | 0.4 | 0.0 - 1.0 % | [facility] | | | | | | [facility] | | | | | [facility] | | | | | | [facility] | | | | | | [facility] | | + + + + + + | % Immature | 0.4 | 0.0 - 0.4 % | [facility] | | | Granulocyte | | | [facility] | | | s | | | [facility]ICAL | | | | | | PARK | | | | | | LABORATORY | | + + + + + + | Absolute | 6.03 | 1.80 - 8.50 | [facility] | | | Neutrophils | | K/uL | [facility] | | | | | [facility] | | | | | | [facility] | | | | | | [facility] | | + + + + + + | Absolute | 2.58 | 0.60 - 3.20 | [facility] | | | Lymphocytes | | K/uL | [facility] | | | | | [facility] | | | | | | [facility] | | | | | | [facility] | | + + + + + + | Absolute | 1.20 (H) | 0.00 - 1.00 | [facility] | | | Monocytes | | K/uL | [facility] | | | [facility] | [facility] | | | | | | [facility] | | | | | | [facility] | | + + + + + + | Absolute | 0.62 (H) | 0.00 - 0.40 | [facility] | | | Eosinophils | | K/uL | [facility] | | | | | [facility] | | | | | | [facility] | | | | | | [facility] | | + + + + + + | Absolute | 0.04 | 0.00 - 0.10 | [facility] | | | Basophils | | K/uL | [facility] | | | | | | [facility] | | | | | | [facility] | | | | | | [facility] | | + + + + + + | Absolute | 0.04 (H) | 0.00 - 0.03 | [facility] | | | Immature | | K/uL | [facility] | | | Granulocyte | | | MEDICAL | | | s | | | PARK | | | | | | LABORATORY | | + + + + + + + + | Specimen | + + | Blood | + + + + + + + | Performing | Address | City/State/Zipcode | Phone Number | | Organization | | | | + + + + + | [facility] | [address] | [place] | [phone] | | [facility] | | [address] | | | [facility] | | | | + + + + + Comprehensive Metabolic Panel (10/10/2018 3:20 PM PDT) + + + + + + | Component | Value | Ref Range | Performed | Pathologist | | | | | At | Signature | + + + + + + | Na | 139 | 136 - 145 | [facility] | | | | | mmol/L | [facility] | | | | | [facility] | | | | | | [facility] | | | | | | [facility] | | + + + + + + | K | 4.1 | 3.5 - 5.1 | [facility] | | | | | mmol/L | [facility] | | | | | | [facility] | | | | | | [facility] | | | | | | [facility] | | + + + + + + | Cl | 103 | 98 - 107 mmol/L | [facility] | | | | | | [facility] | | | | | | [facility] | | | | | | [facility] | | | | | | [facility] | | + + + + + + | CO2 | 31 | 21 - 32 mmol/L | [facility] | | | | | | [facility] | | | | | [facility] | | | | | | [facility] | | | | | | [facility] | | + + + + + + | Anion Gap | 5 | 2 - 16 mmol/L | [facility] | | | | | | [facility] | | | | | [facility] | | | | | | [facility] | | | | | | [facility] | | + + + + + + | Glucose | 243 (H) | 74 - 106 mg/dL | [facility] | | | | | | [facility] | | | [facility] | [facility] | | | | | | [facility] | | | | | | [facility] | | + + + + + + | BUN | 27 (H) | 7 - 18 mg/dL | [facility] | | | | | | [facility] | | | | | [facility] | | | | | | [facility] | | | | | | [facility] | | + + + + + + | Creatinine | 1.00 | 0.55 - 1.02 | [facility] | | | | | mg/dL | [facility] | | | | | | [facility] | | | | | | [facility] | | | | | | LABORATORY | | + + + + + + | eGFR if not | 53 (L)Comment: | >=60 | [facility] | | | | GLOMERULAR FILTRATION | mL/min/1.73m2 | [facility] | | | UGANDAN | RATE,ESTIMATED | | MEDICAL | | | | mL/min/1.72g9Xsop than | | PARK | | | | 60 Chronic kidney [...] + + | Calcium | 8.8 | 8.5 - 10.1 | [facility] | | | | | mg/dL | [facility] | | | | | | [facility] | | | | | | [facility] | | | | | | LAB[facility]ATORY | | + + + + + + | Albumin | 2.8 (L) | 3.4 - 5.0 g/dL | [facility] | | | | | | [facility] | | | | | | [facility] | | | | | | [facility] | | | | | | LABORATORY | | + + + + + + | Bilirubin | 0.2 | 0.2 - 1.0 mg/dL | [facility] | | | Total | | | [facility] | | | | | | [facility] | | | | | | [facility] | | | | | | LAB[facility] | | + + + + + + | Total | 6.7Comment: AST, | 6.4 - 8.2 g/dL | [facility] | | | Protein | CHOLESTEROL, AND TOTAL | | [facility] | | | | PROTEIN may be adversely | | MEDICAL | | | | affected by 2+ | | [facility]ARK | | | | bilirubin. | | LABORATORY | | + + + + + + | AST | 17Comment: AST, | 15 - 37 U/L | [facility] | | | | CHOLESTEROL, AND TOTAL | | [facility] | | | | PROTEIN may be adversely | | MEDICAL | | | | affected by 2+ | | PARK | | | | bilirubin. | | LABORATORY | | + + + + + + | ALT | 22 | 14 - 59 U/L | [facility] | | | | | | [facility] | | | | | | [facility] | | | | | | [facility] | | | | | | LABORATORY | | + + + + + + | Alkaline | 75 | 46 - 116 U/L | [facility] | | | Phosphatase | | | [facility] | | | | | | [facility] | | | | | | [facility]ARK | | | | | | LABORATORY | | + + + + + + | Globulin | 3.9 (H) | 2.1 - 3.8 g/dL | [facility] | | | | | | [facility] | | | | | [facility] | | | | | | [facility] | | | | | | [facility] | | + + + + + + | Albumin/Kalani | 0.7 (L) | 0.8 - 2.0 | [facility] | | | bulin Ratio | | | [facility] | | | | | | [facility] | | | | | | [facility] | | | | | | LAB[facility]ATORY | | + + + + + + | BUN/Creatin | 27.0 | | [facility] | | | ine Ratio | | | [facility] | | | | | [...] + + + + + | [facility] | [address] | [place] | [phone] | | [facility] | | [address] | | | [facility] | | | | + + + + + Hemoglobin A1C (10/10/2018 3:20 PM PDT) + +---------+ + + + [...] 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
--- OUTSIDE RECORDS SUMMARY | ~2019-09-12 | XMS | Encounter Summary ---
Demographics + + + | Address | [address] | | | [place] [address] | + + + | Home Phone [...] | Author | [facility] | | | and Clarkeana | + + + | Organization | [facility] | | [...] | | | | | [place] [address] | | + + + + + | Valentín Saleh | ECON | [address] | | | | | [place] [address] | | + + + + + | Roberto Carlos Lennon | LEVI | Unknown | | + + + + + Care Team Providers + +------+ + | Care Correctional Supply Supervisor Name | Role | Phone | + +------+ + | Francois Pascal MD | PCP | | + +------+ + Reason for Visit Evaluate & Treat (Routine) +--------+ + + [...] | [address] | [address] | | | | | ([facility]) | [place] | [place], | | | | | | [place], [place] | [place] | | | | | | [address] | [address] | | | | | | Phone: | Phone: | | | | | | [phone] | [phone] | | | | | | Fax: | Fax: | | | | | | [phone] | [phone] | +--------+ + + + + + Encounter Details +--------+---------+ + + + | Date | Type | Department | Care Team | Description | +--------+---------+ + + + | 09/25/ | Office | [facility] | Francois Pascal, | DM (diabetes | | 2014 | Visit | MED CTR DIABETES | [address] | mellitus) ([facility]) | | | | EDUCATION [address] | [address] [place], | (Primary Dx) | | | | [place], | [place] [address] | | | | | [place] [address] | [phone] | | | | | [phone] | | | | | | | [...] encounter Progress Notes Chrissy Muhammad RN - 09/25/2013 4:52 PM PDTRecent FBS: 81, 94, 170, 102, 143, 117, 89 . Before lunch:109, 172, 113, 293, 160, 102. Before dinner: 126, 213, 144, 149, 154, 303. Bedtime: 142, 265, 252, 153, 303, 197, 175. Alyson is unsure why her blood sugar is elevated at times. She does not wash her hands before testing and will begin to do so. She rarely snacks between meals, and sleeps well most night s. She is getting little exercise for some years now. She cannot tolerate walking since she fr actured her ankle. She has set exercise goals today. Extensive teaching and handout regarding treatment and symptoms of hypoglycemia which she s ometimes experiences during the night and fasting. Lowest reading reported 60. She was given glucose tablets. Her is present for 60 minute session with good comprehension from both of them. She refuses RD visit. We reviewed the effects of various nutrients upon blood glucose, reading a food label and the plate method. Both of them cook meals. She was introduced to the concep t of injecting fast acting insulin to cover the carbohydrates that she is about to consume. If Dr. Pascal agrees she may add 1 unit per 15gm of carbohydrate that she is about to consu me after we meet next if glucose continues to be elevated. She is going to check her blood s ugar at times after meals, especially if she believes she has eaten a larger amount of carbo hydrates. Alyson will see me in one month and was encouraged to call me with questions or concerns. They are given a schedule to group and support sessions. She was given a chart to rotate her insulin sites as well as comprehensive insulin educatio n. All aspects of diabetes were reviewed with the couple and they were given a comprehensive h andout. Foot exam without removing support hose WNL. She set a goal for daily foot inspection at be dtime. Charly dental and eye exams are current this year. documented in this encounter Plan of Treatment +--------+---------+ + + + | Date | Type | Specialty | Care Team | Description | +--------+---------+ + + + | 12/06/ | Office | Cardiology | MiguelitojessieStephenie, | | | 2019 | Visit | | [address] [place] | | | | | | [place], | | | | | | [place] [address] | | | | | | [phone] | | | | | | | [...]
--- OUTSIDE RECORDS SUMMARY | ~2019-09-12 | XMS | Encounter Summary ---
Demographics + + + | Address | [address] | | | [place] [address] | + + + | Home Phone [...] Author | [facility] | | | and Clarkeana | + + + | Organization | [facility] | | [...] | | | | | [place] [address] | | + + + + + | Valentín Saleh | ECON | [address] | | | | | [place] [address] | | + + + + + | Roberto Carlos Lennon | LEVI | Unknown | | + + + + + Care Team Providers + +------+ + | Care Board Certified Arts Therapist Name | Role | Phone | + +------+ + | Francois Pascal MD | PCP | | + +------+ + Encounter Details +--------+ + + + + | Date | Type | Department | Care Team | Description | +--------+ + + + + | 05/31/ | Orders Only | [facility] | Francois Pascal, | Diabetes mellitus | | 2017 | | MEDICINE [address] | [address] | due to underlying | | | | AVE [place], | [address] [place], | condition with stage | | | | [place] [address] | [place] [address] | 3 chronic kidney | | | | [phone] | [phone] | disease, with | | | | [...] | | | | | | [place] [address] | | | | | | [phone] | | | | | | | [...]
--- OUTSIDE RECORDS SUMMARY | ~2019-09-12 | XMS | Encounter Summary ---
Demographics + + + | Address | [address] | | | [place] [address] | + + + | Home Phone [...] | Author | [facility] | | | and Clarkeana | + + + | Organization | [facility] [...] | | | | | [place] [address] | | + + + + + | Valentín Saleh | ECON | [address] | | | | | [place] [address] | | + + + + + | Roberto Carlos Lennon | LEVI | Jeyson | | + + + + + Care Team Providers + +------+ + | Care Wholesale Manager Name | Role | Phone | + +------+ + PCP | Unavailable | + +------+ + Encounter Details +--------+ + + + + | Date | Type | Department | Care Team | Description | +--------+ + + + + | 04/06/ | Hospital | [facility] | Roberto Carlos Tello, | | | 1992 | Encounter | MED CTR XRAY [address] | [address] [facility] | | | | | [place] | [place] | | | | | [place] [address] | [address] | | | | | [phone] | | | +--------+ + + + [...] | | | | | | [place] [address] | | | | | | [phone] | | | | | | | | +--------+---------+ + + + documented as of this encounter Visit Diagnoses Not on filedocumented in this encounter"
--- OUTSIDE RECORDS SUMMARY | ~2019-09-12 | XMS | Encounter Summary ---
Demographics + + + | Address | [address] | | | [place] [address] | + + + | Home Phone [...] | Author | [facility] | | | and Clarkeana | + + + | Organization | [facility] | [...] | | | | | [place] [address] | | + + + + + | Valentín Saleh | ECON | [address] | | | | | [place] [address] | | + + + + + | Roberto Carlos Lennon | LEVI | Unknown | | + + + + + Care Team Providers + +------+ + | Care Sales Operations Manager Name | Role | Phone [...] + + | 04/29/ | Telephone | [facility] [place] | [place], | Medication Follow-up | | 2018 | | NEPHROLOGY [address] | [address] | | | | | [address] | [address] [facility] | | | | | [place] | [address] [place] | | | | | [address] | [address] | | | | | [phone] | | | +--------+ + + + [...] - 04/29/2017 2:32 PM DEISY Boss at [facility] report that it was a marketing operations assistant error. Patient has been receiving metoprolol succinate, [...] | | | | | | [place] [address] | | | | | | [phone] | | | | | | | | +--------+---------+ + + + documented as of this encounter Visit Diagnoses Not on filedocumented in this encounter"
--- OUTSIDE RECORDS SUMMARY | ~2019-09-12 | XMS | Encounter Summary ---
Demographics + + + | Address | [address] | | | [place] [address] | + + + | Home Phone [...] | Author | [facility] | | | and Clarkeana | + + + | Organization | [facility] | | [...] | | | | | [place] [address] | | + + + + + | Valentín Saleh | ECON | [address] | | | | | [place] [address] | | + + + + + | Roberto Carlos Lennon | LEVI | Unknown | | + + + + + Care Team Providers + +------+ + | Care Dump Worker Name | Role | Phone | [...] | 05/25/ | Refill | [facility] [place] [facility] | Francois Pascal, | Medication Refill | | 2016 | | MEDICINE [facility] [place] | [address] | | | | | AVE [place], | [address] [place], | | | | | [place] [address] | [place] [address] | | | | | [phone] | [phone] | | | | | | | [...] this encounter Miscellaneous Notes Telephone Encounter - Aiarm Menjivar RN - 05/25/2016 2:04 PM PDTCalled [...] | | | | | | [place] [address] | | | | | | [phone] | | | | | | | | +--------+---------+ + + + documented as of this encounter Visit Diagnoses Not on filedocumented in this encounter"
--- OUTSIDE RECORDS SUMMARY | ~2019-09-12 | XMS | Encounter Summary ---
Demographics + + + | Address | [address] | | | [place] [address] | + + + | Home Phone [...] | Author | [facility] | | | and Clarkeana | + + + | Organization | [facility] | [...] | | | | | [place] [address] | | + + + + + | Valentín Saleh | ECON | [address] | | | | | [place] [address] | | + + + + + | Roberto Carlos Lennon | LEVI | Unknown | | + + + + + Care Team Providers + +------+ + | Care Printed Circuit Boards Solder Leveler Name | Role | Phone | + +------+ + | Francois Pascal MD | PCP | | + +------+ + Reason for Visit + + + | Reason | Comments | + + + | Fall | | + + + | Altered Mental | | | Status | | + + + Encounter Details +--------+ + + + + | Date | Type | Department | Care Team | Description | +--------+ + + + + | 10/17/ | Emergency | [facility] | Nik Olea, | Confusion (Primary | | 2014 | | [facility] | MD [address] | Dx); Hyponatremia; | | | | CENTER [address] | [facility] | Dehydration; Acute | | | | [place] | [place] [address] | on chronic renal | | | | [address] | [phone] | insufficiency; UTI | | | | [phone] | | (lower urinary tract | | | | | | infection); | | | | | | Essential | | | | | | hypertension | +--------+ + + + + Social [...] + + + | Blood Pressure | 115/57 | 10/17/2014 6:12 PM | | | | | PDT | | + + + + + | Pulse | 68 | 10/17/2014 6:17 PM | | | | | PDT | | + + + + + | Temperature | - | - | | + + + + + | Respiratory Rate | 18 | 10/17/2014 6:17 PM | | | | | PDT | | + + + + + | Oxygen Saturation | 92% | 10/17/2014 6:12 PM | | | | | PDT | | + + + + + | Inhaled Oxygen | - | - | | | Concentration | | | | + + + + + | Weight | 70.3 kg (155 lb) | 10/17/2014 3:26 PM | | | | | PDT | | + + + + + | Height | 157.5 cm (5' 2") | 10/17/2014 3:26 PM | | | | | PDT | | + + + + + | Body Mass Index | 28.35 | 10/17/2014 3:26 PM | | | | | PDT | | + + + + + documented in this encounter Discharge Instructions Instructions Nik Olea MD - 10/17/2014Stop your Lasix for now (the next 4 days) Stop her lisinopril for now (the next 4 days) Take the Omnicef for your urinary tract infection Take the sodium chloride tablets to replenish her sodium Your blood needs to be rechecked on Tuesday Follow-up with your primary care doctor on Tuesday Return immediately if your symptoms worsen or other concerns develop AttachmentsThe following attachments cannot be sent through Care Everywhere.BLADDER INFECTI ON, FEMALE (ADULT) (TAMAZIGHT)HYPONATREMIA (TAMAZIGHT)RENAL INSUFFICIENCY (TAMAZIGHT)documented in this encounter Medications at Time of [...] (OMNICEF) | Take 1 capsule by | 14 | 0 | 10/18/19 | | | 300 mg capsule | mouth 2 times daily | capsule | | 15 | 5 | | | for 7 days. | | | | | + [...] + + +---------+ + + | sodium chloride 1 | Take 1 tablet by | 12 | 0 | 10/18/19 | | | g tablet | mouth 3 times daily | tablet | | 15 | 5 | | | for 4 days. | | | | | + + + +---------+ + + documented as of this encounter Procedure Sandip Yarbrough MD - 10/18/2014 6:36 AM PDTAssociated Order(s): ECG 12 LEAD Adult ECG Repo rt Name: Alyson Lennon Age: 83 y.o. Gender: female 10/17/14 at 16:02 Narrative Interpretation: Sinus rhythm. Rate 64 bpm. First-degree AV block with right bu ndle branch block. Probable anterolateral and inferior infarctions age-indeterminate. Jessica ot exclude ongoing ischemia or evolution of a recent ischemic event. documented in this [facility] ED Notes Nik Olea MD - 10/17/2014 3:41 PM PDTFormatting of this note might be different f rom the original. [facility] Alyson Lennon Emergency Department Encounter Note [address] [place] [id number] PCP:Francois Pascal MD [phone] CHIEF COMPLAINT Chief Complaint Patient presents with Fall Altered Mental Status HPI Alyson Lennon is a 83 y.o. female who presents to the emergency department with confusion . This patient fell 3 weeks ago. She was walking into it [employer] shop when she tripped and fell. She landed on her face. She broke her glasses and sustained injuries to her fore head and face. No reported loss of consciousness. She went to Dr. Capone's office today fo r a scheduled appointment. When he took down her history he was concerned that she has been more confused since the fall 3 weeks ago. She is having trouble remembering to take her me dications. Her states that she's not acting right. He sent her over here to the ER for further evaluation. Dr. Capone question whether or not she may have had a unrecognized brain injury from the fall. 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 Myocardial infarction ([facility]) (1994&1996) CAR with Hx of Myocardial infarction Other abnormal clinical finding Verebral Compression Fractures Glossitis CAD (coronary artery disease) CHF (congestive heart failure) ([facility]) Arthritis Old VA (myocardial infarction) Carotid stenosis H/O ventricular septal [...] surgery 1975 BIOPSY BRESAT, LEFT CURRENT MEDICATIONS Discharge Medication List as of 10/17/2014 18:11 CONTINUE these medications which have NOT CHANGED Details allopurinol (ZYLOPRIM) 100 mg tablet TAKE ONE TABLET BY MOUTH TWICE A DAYDisp-180 tablet, R -2, Normal amLODIPine (NORVASC) 5 mg tablet TAKE ONE TABLET BY MOUTH EVERY DAYDisp-90 tablet, R-3, Nor mal aspirin (ASPIRIN EC) 81 MG EC tablet Take2 tablets by mouth Tuesday thru Tuesday and 325 mg on Tuesday aspirin 325 mg tablet Take 1 by mouth on Sundays Calcium Carbonate-Vitamin D 600-200 MG-UNIT TABS Take 2 tablets by mouth dailyEach tablet c ontains 600 mg elemental calcium. Cinnamon 500 MG CAPS Take 1 capsule by mouth 2 times daily.Historical Med colchicine 0.6 mg tablet 1-2 tablets by mouth as needed fluocinonide (LIDEX) 0.05% cream as needed.Historical Med folic acid 1 mg tablet TAKE ONE TABLET BY MOUTH EVERY DAYDisp-90 tablet, R-1, Normal !! insulin aspart (NOVOLOG) 100 units/mL injection Historical Med insulin glargine (LANTUS) 100 units/mL injection INJECT 120 UNITS AT BEDTIMEDisp-50 mL, R-6 , Normal JANUVIA 100 MG tablet TAKE ONE TABLET BY MOUTH EVERY DAYDisp-90 tablet, R-1, Normal methotrexate 2.5 mg tablet TAKE 5 TABLETS BY MOUTH ONCE WEEKLYDisp-20 tablet, R-11, NormalM edication has a BLACK BOX Warning or Severe Contraindications. Consult references such as M Kwicromedex for further information. metoprolol succinate (TOPROL-XL) 200 mg ER tablet TAKE ONE TABLET BY MOUTH EVERY DAYDisp-90 tablet, R-3, Normal multivitamin (THERAGRAN) per tablet Take 1 by mouth daily niacin (NIASPAN) 500 mg CR tablet TAKE ONE TABLET BY MOUTH EVERY DAYDisp-30 tablet, R-6, No rmal !! NOVOLOG 100 UNIT/ML injection INJECT 18 UNITS IN THE MORNING, 23 UNITS BEFORE LUNCH AND 28 UNITS BEFORE DINNERDisp-20 mL, R-3, Normal simvastatin (ZOCOR) 40 mg tablet TAKE ONE-HALF TABLET BY MOUTH EVERY DAYDisp-45 tablet, R-3 , Normal !! - Potential duplicate medications found. Please discuss with provider. ALLERGIES Allergies Allergen Reactions Codeine Sulfate Nausea And Vomiting Darvon Nausea Only Estrogens Patient can't remember FAMILY HISTORY Family History Problem Relation Age of Onset Heart attack Mother possible VSD Heart disease Mother Other (See Comment) Father pneumonia Other (See Comment) Other family history of [place]'s Disease Other (See Comment) Other No kidney [...] Concern None Social History Narrative Born in [facility] for 46 years. and Remarried 2 sons local. Patient has never smoked. Alcohol Use - no Exercise: None Caffeine: Decaf only Living Situation: Lives with Sigrid REVIEW OF SYSTEMS All systems reviewed and found negative except what is in the HPI PHYSICAL EXAM VITAL SIGNS: Resp 16 | Ht 1.575 m (5' 2") | Wt 70.308 kg (155 lb) | BMI 28.34 kg/m2 | SpO2 99% Constitutional: Well developed, Well nourished, No acute [...] Non tender, no signs of trauma Cardiovascular: Normal heart rate, Normal rhythm, No murmurs appreciated. GI: Soft, Non tenderness, No peritoneal signs, No masses Extremities: Warm and well perfused, no edema, no joint swelling or deformity. Good ROM. Back: No CVAT, No tenderness of the thoracic or lumbar spine. Skin: Warm, Dry, No erythema, No induration, No rash. Neurologic: Alert & oriented x 3, just so a difficult time telling her story, she has some forgetfulness, No focal motor or sensory deficits. Speech is clear. Gait is normal. EKG Twelve-lead EKG shows sinus rhythm with first degree AV block at 64 bpm. Left axis deviati on. Right bundle block. Q waves in the inferior leads consistent with prior inferior wall VA. Q waves in leads V1 through V5 with inverted T waves in leads V1 through V6 reflecting a prior anterior lateral VA. UT interval is 246. QRS duration is 136. QT corrected is 44. No acute ST elevation or depression. This is an abnormal EKG. In comparison to March 072014 there are no significant changes. RADIOLOGY Noncontrast head CT: IMPRESSION - No acute intracranial process. 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 ED COURSE & MEDICAL DECISION MAKING Pertinent Labs & Imaging studies reviewed. (See chart for details) The patient was seen and examined shortly after arriving in the emergency department. Hist ory and physical were obtained, vital signs were noted. Head CT shows no acute pathology. 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 Her labs have changed in the 5 weeks [facility] e they were last checked. She now has hyponatremia. Her BUN/creatinine have also risen. I will stop her Lasix and lisinopril for now. She also has a urinalysis that meets criteria for infection and that will be treated. She will need her blood rechecked in 3 days. Clini mariza she is dehydrated and was given 1 L of normal saline while here in the ER. FINAL IMPRESSION 1. Confusion 2. Hyponatremia 3. Dehydration 4. Acute on chronic renal insufficiency 5. UTI (lower urinary tract infection) PLAN Follow-up Information Follow up with Francois Pascal MD. Schedule an appointment as soon as possible for a vi sit in 4 days. Specialty: Family Medicine Contact information: [facility] [address] Discharge Medication List as of 10/17/2014 18:11 START taking these medications Details cefdinir (OMNICEF) 300 mg capsule Take 1 capsule by mouth 2 times daily for 7 days.Disp-14 capsule, R-0, Print sodium chloride 1 g tablet Take 1 tablet by mouth 3 times daily for 4 days.Disp-12 tablet, R-0, PrintEach 1 g tablet contains 17 mEq sodium. Nik Olea MD 10/17/14 [id number] docume nted in this encounter Miscellaneous Notes ED Triage Notes - DEISY Rojas - 10/17/2014 3:25 PM PDTC/O pt had a fall approx 3 weeks ago and hit her head and broke her glasses. Since than she is more confused forgetful and not he rself. shes not able to remember taking her medications or give herself insulin. Dr. Pascal is concerned about a potential bleed documented in this encounter Plan of Treatment +--------+---------+ + + + | Date | Type | Specialty | Care Team | Description | +--------+---------+ + + + | 12/06/ | Office | Cardiology | Stephenie Paul, | | | 2019 | Visit | | MD [address] | | | | | | [place], | | | | | | [place] [address] | | | | | | [phone] | | | | | | | | +--------+---------+ + + + documented as of this encounter Procedures + +--------+ + + + | Procedure Name | Priori | Date/Time | Associated Diagnosis | Comments | | | ty | | | | + +--------+ + + + | ECG 12 LEAD | STAT | 10/18/2014 | | Results for this | | | | 6:37 AM | | procedure are in the | | | | PDT | | results section. | + +--------+ + + + | URINALYSIS WITH | STAT | 10/17/2014 | | Results for this | | MICROSCOPIC WITH | | 5:32 PM | | procedure are in the | | CULTURE IF INDICATED | | PDT | | results section. | + +--------+ + + + | CULTURE, URINE | Routin | 10/17/2014 | | Results for this | | | e | 5:32 PM | | procedure are in the | | | | PDT | | results section. | + +--------+ + + + | CT HEAD WO CONTRAST | STAT | 10/17/2014 | | Results for this | | | | 3:50 PM | | procedure are in the | | | | PDT | | results section. | + +--------+ + + + | EXTRA GREEN TOP TUBE | Routin | 10/17/2014 | | Results for this | | | e | 3:42 PM | | procedure are in the | | | | PDT | | results section. | + +--------+ + + + | EXTRA GOLD TOP TUBE | Routin | 10/17/2014 | | Results for this | | | e | 3:42 PM | | procedure are in the | | | | PDT | | results section. | + +--------+ + + + | EXTRA BLUE TOP TUBE | Routin | 10/17/2014 | | Results for this | | | e | 3:42 PM | | procedure are in the | | | | PDT | | results section. | + +--------+ + + + | CBC WITH | STAT | 10/17/2014 | | Results for this | | DIFFERENTIAL | | 3:36 PM | | procedure are in the | | | | PDT | | results section. | + +--------+ + + + | COMPREHENSIVE | STAT | 10/17/2014 | | Results for this | | METABOLIC PANEL | | 3:36 PM | | procedure are in the | | | | PDT | | results section. | + +--------+ + + + documented in this encounter Results ECG 12 lead (10/18/2014 6:37 AM PDT) + + + | Narrative | Performed At | + + + | Sandip Ortiz MD 10/18/2014 6:37 Adult ECG Report | | | Name: Alyson Lennon Age: 83 y.o. Gender: female 10/17/14 at | | | 16:02 Narrative Interpretation: Sinus rhythm. Rate 64 bpm. | | | First-degree AV block with right bundle branch block. Probable | | | anterolateral and inferior infarctions age-indeterminate. Cannot | | | exclude ongoing ischemia or evolution of a recent ischemic event. | | + + + Culture, Urine (10/17/2014 5:32 PM PDT) + + + + + + | Component | Value | Ref Range | Performed | Pathologist | | | | | At | Signature | + + + + + + | Culture | 30,000 CFU/ml Mixed | | [facility] | | | | ronaldo (multiple | | [facility] | | | | morphologies | | MEDICAL | | | | present)Comment: | | CENTER - | | | | Suggests contamination | | LABORATORY | | | | with urogenital or skin | | | | | | ronaldo.No further work-up | | | | | | to follow. | | | | + + + [...] [address] | [place] | [phone] | | [facility] | | [address] | | | - LABORATORY | | | | + + + + + Urinalysis with Microscopic with Culture if Indicated (10/17/2014 5:32 PM PDT) + + + + + + | Component | Value | Ref Range | Performed | Pathologist | | | | | At | Signature | + + + + + + | Color, | Yellow | Light Yellow, | [facility] | | | Urine | | Yellow | [facility] | | | | | | MEDICAL | | | | | | CENTER - | | | | | | LABORATORY | | + + + + + + | Clarity, | Clear | Clear | [facility] | | | Urine | | | [facility] | | | [...] - 1.030 | [facility] | | | [place], | | | [facility] | | [...] + + + + | Leukocyte | Small (A) | Negative | [facility] [...] + + | White Blood | 5-10 (A) | 0 - 2 /HPF | [...] + + + + | Transitiona | 5-10 (A) | 0 - 2 /HPF | [facility] | | | l | | | [facility] | | | Epithelial | | | MEDICAL | | | Cells, | | | CENTER - | | | Urine | | | LABORATORY | | + + + + + + | Bacteria, | 2+ (A) | Negative /HPF | [facility] | [...] + | [facility] | [address] | [place], [place] | [phone] | | [facility] | | [address] | | | - LABORATORY | | | | + + + + + CT Head wo Contrast (10/17/2014 3:50 PM PDT) + + | Specimen | + + | | + + + + + | Narrative | Performed At | + + + | EXAM: CT HEAD WO CONTRAST dated 10/17/2014 3:46 PM HISTORY: | [facility] | | FALL. ALTERED MENTAL STATUS. Comparison: None. TECHNIQUE: | | | Noncontrast CT is performed from the top of calvarium through the | | | skull base. Coronal and sagittal reformats are performed. DOSE: | | | DLP 515.47 mGy-cm FINDINGS: BRAIN: There is mild cerebral | | | atrophy. There is appropriate associated prominence of the | | | ventricles.. No areas of increased attenuation to suggest | | | intracranial hemorrhage. There is no mass, mass effect, or midline | | | shift. There are no abnormal extra-axial fluid or air collections. | | | There is preservation of the friedman-white differentiation at this | | | time. There is moderate patchy to confluent decreased density in | | | the periventricular and subcortical white matter. Hypodensity in | | | the right basal ganglia represents a prior lacunar infarct. | | | Extensive carotid artery calcifications in the cavernous region and | | | atherosclerotic disease in the posterior circulation. SCALP/ | | | CALVARIUM: The scalp and skull are intact and are unremarkable. | | | SINUSES / ORBITS/ MASTOIDS: The visible mastoid air cells and | | | paranasal sinuses are clear. The globes and retroconal contents are | | | intact and are unremarkable. IMPRESSION - No acute | | | intracranial process. Senescent changes of the brain and the | | | sequela of a remote right basal ganglia infarct. Dictated | | | and Signed by: David Jon MD Electronically signed: 10/17/2014 | | | 4:03 PM | | + + + + + | Procedure Note | + + | Al, Rad Results In - 10/17/2014 4:06 PM PDT EXAM: CT HEAD WO CONTRAST dated | | 10/17/2014 3:46 PMHISTORY: FALL. ALTERED MENTAL STATUS.Comparison: None.TECHNIQUE: | | Noncontrast CT is performed from the top of calvarium through theskull base. Coronal | | and sagittal reformats are performed.DOSE: DLP 515.47 mGy-cmFINDINGS: BRAIN: There is | | mild cerebral atrophy. There is appropriate associatedprominence of the ventricles.. | | No areas of increased attenuation to suggestintracranial hemorrhage. There is no mass, | | mass effect, or midline shift. There are no abnormal extra-axial fluid or air | | collections. There ispreservation of the friedman-white differentiation at this time. | | There is moderatepatchy to confluent decreased density in the periventricular and | | subcorticalwhite matter. Hypodensity in the right basal ganglia represents a prior | | lacunarinfarct. Extensive carotid artery calcifications in the cavernous region | | andatherosclerotic disease in the posterior circulation. SCALP/ CALVARIUM: The scalp | | and skull are intact and are unremarkable.SINUSES / ORBITS/ MASTOIDS: The visible | | mastoid air cells and paranasal sinusesare clear. The globes and retroconal contents | | are intact and are unremarkable.IMPRESSION -No acute intracranial process.Senescent | | changes of the brain and the sequela of a remote right basal gangliainfarct.Dictated and | | Signed by: David Jon MD Electronically signed: 10/17/2014 4:03 PM | |preservation of the friedman-white differentiation at this time. There is moderate | |patchy to confluent decreased density in the periventricular and subcortical | |white matter. Hypodensity in the right basal ganglia represents a prior lacunar | |infarct. Extensive carotid artery calcifications in the cavernous region and | |atherosclerotic disease in the posterior circulation. | | | |SCALP/ CALVARIUM: The scalp and skull are intact and are unremarkable. | | | |SINUSES / ORBITS/ MASTOIDS: The visible mastoid air cells and paranasal sinuses | |are clear. The globes and retroconal contents are intact and are unremarkable. | | | |IMPRESSION - | | | |No acute intracranial process. | | | |Senescent changes of the brain and the sequela of a remote right basal ganglia | |infarct. | | | | | | | |Dictated and Signed by: David Jon MD | | Electronically signed: 10/17/2014 4:03 PM | + + + +---------+ + + | Performing | Address | City/State/Zipcode | Phone Number | | Organization | | | | + +---------+ + + | [facility] | | | | + +---------+ + + EXTRA GREEN TOP TUBE (10/17/2014 3:42 PM PDT) + +-------+ + + + | Component | Value | Ref Range | Performed | Pathologist | | | | | At | Signature | + +-------+ + + + | Extra Green | Done | | [facility] | | | Top Tube | | | [facility] | | [...] + | [facility] | [address] | [place] | [phone] | | [facility] | | [address] | | | - LABORATORY | | | | + + + + + EXTRA BLUE TOP TUBE (10/17/2014 3:42 PM PDT) + +-------+ + + + [...] [address] | [place] | [phone] | | [facility] | | [address] | | | - LABORATORY | | | | + + + + + EXTRA GOLD TOP TUBE (10/17/2014 3:42 PM PDT) + +-------+ + + + [...] [address] | [place] | [phone] | | [facility] | | [address] | | | - LABORATORY | | | | + + + + + Comprehensive Metabolic Panel (10/17/2014 3:36 PM PDT) + + + + + + | Component | Value | Ref Range | Performed | Pathologist | | | | | At | Signature | + + + + + + | Na | 127 (L) | 136 - 149 | [facility] [...] + + + + | Cl | 92 (L) | 98 - 109 mmol/L | [facility] | | | | | | [facility] | | | | | | MEDICAL | | | | | | CENTER - | | | | | | LABORATORY | | + + + + + + | CO2 | 24 | 24 - 31 mmol/L | [facility] [...] + + + + | Glucose | 235 (H) | 70 - 109 mg/dL | [facility] | | | | | | [facility] | | | | | | MEDICAL | | | | | | CENTER - | | | | | | LABORATORY | | + + + + + + | BUN | 39 (H) | 7 - 18 mg/dL | [facility] | | | | | | [facility] | | | | | | MEDICAL | | | | | | CENTER - | | | | | | LABORATORY | | + + + + + + | Creatinine | 2.12 (H) | 0.60 - 1.30 | [facility] | | | | | mg/dL | [facility] | | | | | | MEDICAL | | | | | | CENTER - | | | | | | LABORATORY | | + + + + + + | eGFR if not | 22 (L)Comment: | >=60 | [facility] | | | | GLOMERULAR FILTRATION | mL/min/1.73m2 | [facility] | | | BHUTANESE | RATE,ESTIMATED | | MEDICAL | | | | mL/min/1.04w4Mlxg than | | CENTER - | | [...] 3.4 | 3.2 - 5.0 g/dL | [facility] | | | | | | [facility] | | | | | | MEDICAL | | | | | | CENTER - | | | | | | LABORATORY | | + + + + + + | Bilirubin | 1.0 | 0.1 - 1.5 mg/dL | [facility] [...] + + + + | ALT | 16 | 6 - 45 U/L | [facility] | | | | | | [facility] | | | | | | MEDICAL | | | | | | CENTER - | | | | | | LABORATORY | | + + + + + + | Alkaline | 60 | 40 - 110 U/L | [facility] [...] + + + + | BUN/Creatin | 18.4 | | [facility] | | | ine [...] + | [facility] | [address] | [place] | [phone] | | [facility] | | [address] | | | - LABORATORY | | | | + + + + + CBC with Differential (10/17/2014 3:36 PM PDT) + + + + + + | Component | Value | Ref Range | Performed | Pathologist | | | | | At | Signature | + + + + + + | White Blood | 13.3 (H) | 4.0 - 11.0 K/uL | [facility] | | | Cells | | | [facility] | | | | | | MEDICAL | | | | | | CENTER - | | | | | | LABORATORY | | + + + + + + | Red Blood | 4.24 | 3.70 - 5.20 | [facility] | | | Cells | | M/uL | [facility] | | | | | | MEDICAL | | | | | | CENTER - | | | | | | LABORATORY | | + + + + + + | Hemoglobin | 14.6 | 11.5 - 16.0 | [facility] | | | | | g/dL | [facility] | | | | | | MEDICAL | | | | | | CENTER - | | | | | | LABORATORY | | + + + + + + | Hematocrit | 42.7 | 34.0 - 47.0 % | [facility] | | | | | | [facility] | | | | | | MEDICAL | | | | | | CENTER - | | | | | | LABORATORY | | + + + + + + | MCV | 100.7 | 83.0 - 101.0 fL | [facility] | | | | | | [facility] | | | | | | MEDICAL | | | | | | CENTER - | | | | | | LABORATORY | | + + + + + + | MCH | 34.5 | 28.0 - 35.0 pg | [facility] [...] + + + + | RDW-CV | 13.1 | <15.0 % | [facility] | | | | | | [facility] | | | | | | MEDICAL | | | | | | CENTER - | | | | | | LABORATORY | | + + + + + + | Platelet | 227 | 140 - 440 K/uL | [facility] [...] + + + + | % | 57.1 | 45.0 - 82.0 % | [facility] | | | Neutrophils | | | [facility] | | | | | | MEDICAL | | | | | | CENTER - | | | | | | LABORATORY | | + + + + + + | % | 14.6 (L) | 20.0 - 45.0 % | [facility] | | | Lymphocytes | | | [facility] | | | | | | MEDICAL | | | | | | CENTER - | | | | | | LABORATORY | | + + + + + + | % Monocytes | 22.3 (H) | 4.0 - 12.0 % | [facility] | | | | | | [facility] | | | | | | MEDICAL | | | | | | CENTER - | | | | | | LABORATORY | | + + + + + + | % | 4.9 | 0.0 - 5.0 % | [facility] [...] + + + + | Absolute | 7.60 | 1.80 - 8.50 | [facility] | | | Neutrophils | | K/uL | [facility] | | | | | | MEDICAL | | | | | | CENTER - | | | | | | LABORATORY | | + + + + + + | Absolute | 1.90 | 0.60 - 3.20 | [facility] | | | Lymphocytes | | K/uL | [facility] | | | | | | MEDICAL | | | | | | CENTER - | | | | | | LABORATORY | | + + + + + + | Absolute | 3.00 (H) | 0.00 - 1.00 | [facility] [...] ST[facility] | [address] | [place] | [phone] | | [facility] | | [address] | | | - LABORATORY | | | | + + + + + documented in this encounter Visit Diagnoses + + | Diagnosis | + + | Confusion - Primary Unspecified psychosis | + + | Hyponatremia Hyposmolality and/or hyponatremia | + + | Dehydration | + + | Acute on chronic renal insufficiency Unspecified disorder of kidney and ureter | + + | UTI (lower urinary tract infection) Urinary tract infection, site not specified | + + | Essential hypertension Unspecified essential hypertension | + + documented in this encounter Administered Medications + +--------+ +--------+------+------+ | Medication Order | MAR | Action | Dose | Rate | Site | | | Action | Date | | | | + +--------+ +--------+------+------+ | cefdinir (OMNICEF) capsule 300 | Given | 10/18/19 | 300 mg | | | | mg 300 mg, Oral, ONCE, Aarti | | 15 6:20 | | | | | 10/17/14 at 1830, For 1 dose | | PM PDT | | | | + +--------+ +--------+------+------+ +---+---+ | | | +---+---+ + +---------+ +---------+-------+---+ | sodium chloride 0.9% (NS) bolus | New Bag | 10/18/19 | 500 mLs | 500 | | | 500 mL 500 mL, Intravenous, | | 15 4:48 | | mL/hr | | | Administer over 1 Hours, ONCE, | | PM PDT | | | | | Aarti 10/17/14 at 1645, For 1 dose | | | | | | + +---------+ +---------+-------+---+ +---+---+ | | | +---+---+ + +---------+ +---------+-------+---+ | sodium chloride 0.9% (NS) bolus | New Bag | 10/18/19 | 500 mLs | 500 | | | 500 mL 500 mL, Intravenous, | | 15 5:38 | | mL/hr | | | Administer over 1 Hours, ONCE, | | PM PDT | | | | | Aarti 10/17/14 at 1800, For 1 dose | | | | | | + +---------+ +---------+-------+---+ +---+---+ | | | +---+---+ documented in this encounter
--- OUTSIDE RECORDS SUMMARY | ~2019-09-12 | XMS | Encounter Summary ---
Demographics + + + | Address | [address] | | | [place] [address] | + + + | Home Phone [...] | Author | [facility] | | | and [place]ana | + + + | Organization | [facility] [...] | | | | | [place] [address] | | + + + + + | Valentín Saleh | ECON | [address] | | | | | [place] [address] | | + + + + + | Roberto Carlos Lennon | LEVI | Unknown | | + + + + + Care Team Providers + +------+ + | Care Bleacher Lard Name | Role | Phone | + [...] Description | +--------+--------+ + + + | 11/04/ | Refill | [facility] [place] | Fackenthall, | Medication Refill | | 2015 | | NEPHROLOGY [address] | [address] | | | | | [facility] | [address] [facility] | | | | | [place], [place] | [address] | | | | | [address] | [address] | | | | | [phone] | | | +--------+--------+ + + + [...] | | | | | | [place] [address] | | | | | | [phone] | | | | | | | | +--------+---------+ + + + documented as of this encounter Visit Diagnoses Not on filedocumented in this encounter"
--- OUTSIDE RECORDS SUMMARY | ~2019-09-12 | XMS | Encounter Summary ---
Demographics + + + | Address | [address] | | | [place] [address] | + + + | Home Phone [...] | Author | [facility] | | | and [place] | + + + | Organization | [facility] | [...] | | | | | [place] [address] | | + + + + + | Valentín Saleh | ECON | [address] | | | | | [place] [address] | | + + + + + | Roberto Carlos Lennon | LEVI | Unknown | | + + + + + Care Team Providers + +------+ + | Care Vegetable Worker Name | Role | Phone | + +------+ + | Francois Pascal MD | PCP | | + +------+ + Reason for Visit + +--------+ + | Reason | Onset | Comments | | | Date | | + +--------+ + | Appointment | 11/21/ | Lab results | | | 2012 | | + +--------+ + Encounter Details +--------+ + + + + | Date | Type | Department | Care Team | Description | +--------+ + + + + | 11/21/ | Telephone | [facility] | Francios Pascal, | Appointment (Lab | | 2012 | | [facility] | [address] | results) | | | | [address] | [address], | | | | | [place] | [place] [address] | | | | | [address] | [phone] | | | | | [phone] | | | +--------+ + + + [...] Telephone Encounter - Airam Menjivar RN - 11/21/2012 3:30 PM PDTPatient scheduled to go over test results on Nov 27. Electronically signed by Airam Menjivar RN at 2012 3:33 PM PDTTelephone Encounter - Barbara Srivastava - 11/21/2012 1:39 PM PDTLeft message for patient to return call to clinic to set up an appt to discuss lab results within a clarke h. documented in this enco unter Plan of [...] | | | | | | [place] [address] | | | | | | [phone] | | | | | | | | +--------+---------+ + + + documented as of this encounter Visit Diagnoses Not on filedocumented in this encounter"
--- OUTSIDE RECORDS SUMMARY | ~2019-09-12 | XMS | Encounter Summary ---
Demographics + + + | Address | [address] | | | [place] [address] | + + + | Home Phone [...] | [facility] | | | and [place]ana | + + + | Organization | [facility] | [...] | | | | | [place] [address] | | + + + + + | Valentín Saleh | ECON | [address] | | | | | [place] [address] | | + + + + + | Roberto Carlos Lennon | LEVI | Unknown | | + + + + + Care Team Providers + +------+ + | Care Road Equipment Operator Name | Role | Phone | + +------+ + | Francois Pascal MD | PCP | | + +------+ + Reason for Visit + + + | Reason | Comments | + + + | Dementia | | + + + Encounter Details +--------+---------+ + + + | Date | Type | Department | Care Team | Description | +--------+---------+ + + + | 09/09/ | Office | [facility] | Francois Pascal, | Dementia due to | | 2016 | Visit | MEDICINE [address] [place] [address] | [address] | Alzheimer's disease | | | | [address] [place], | [address] [place] [address], | | | | | [place] [address] | [place] [address] | | | | | [phone] | [phone] | | | | | | | [...] + | Blood Pressure | 100/60 | 09/09/2016 8:15 AM | | | | | PDT | | + + + + + | Pulse | 53 | 09/09/2016 8:15 AM | | | | | PDT | | + + + + + | Temperature | 36.1 C (97 F) | 09/09/2016 8:15 AM | | | | | PDT | | + + + + + | Respiratory Rate | 16 | 09/09/2016 8:15 AM | | | | | PDT | | + + + + + | Oxygen Saturation | 90% | 09/09/2016 8:15 AM | | | | | PDT | | + + + + + | Inhaled Oxygen | - | - | | | Concentration | | | | + + + + + | Weight | 72.1 kg (159 lb) | 09/09/2016 8:15 AM | | | | | PDT | | + + + + + | Height | 167.6 cm (5' 6") | 09/09/2016 8:15 AM | | | | | PDT | | + + + + + | Body Mass Index | 25.66 | 09/09/2016 8:15 AM | | | [...] encounter Progress Notes Francois Pascal MD - 09/09/2016 8:30 AM PDTFormatting of this note might be different f rom the original. Subjective: Patient ID: Alyson Lennon is a 85 y.o. female. HPI Dementia, Delerium Confusion slightly less confused. There is no burning with urination. Pt denies any confusion. Her states she has been still very confused. She jimenez s not know who the President is. She states she heard her is going to divorce her and get remarried to a girlfriend. Recent UTI, treated with abx and symptom free at this point. She states she is getting up for therapy at [facility]. Review of Systems Objective: Physical Exam Heent, WNL, No carotid bruit Chest CTAB Heart RR&R /s M Abd S,NT,ND,BS+ Ext, no CCor E Neuro Non-focal Lymph, no cervical, axillary, inguinal adenopathy Musculoskeletal, no gross deformity or loss or range of motion Skin, no gross lesions Assessment: 1. Dementia due to Alzheimer's disease UTI Plan: Neurology consult pending. I do believe there was a recent overlying delerium that appea rs to be slightly improved. RTC 2 months. Otherwise continue current medical regimen. documented in [...] | | | | | | [place] [address] | | | | | | [phone] | | | | | | | | +--------+---------+ + + + documented as of this encounter Visit Diagnoses + + | Diagnosis | + + | 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) | + + documented in this encounter
--- OUTSIDE RECORDS SUMMARY | ~2019-09-12 | XMS | Encounter Summary ---
Demographics + + + | Address | [address] | | | [place] [address] | + + + | Home Phone [...] | [facility] | | | and [place] | + + + | Organization | [facility] | [...] | | | | | [place] [address] | | + + + + + | Valentín Saleh | ECON | [address] | | | | | [place] [address] | | + + + + + | Roberto Carlos Lennon | LEVI | Unknown | | + + + + + Care Team Providers + +------+ + | Care Pearl Maker Name | Role | Phone | [...] + + | 06/17/ | Telephone | [facility] | Francois Pascal, | Fall (Fall with | | 2016 | | MEDICINE [address] | [address] | injury to the head) | | | | [address]VE [place], | [address] [place], | | | | | [place] [address] | [place] [address] | | | | | [phone] | [phone] | | | | | | | [...] | | | | | | [place] [address] | | | | | | [phone] | | | | | | | | +--------+---------+ + + + documented as of this encounter Visit Diagnoses Not on filedocumented in this encounter"
--- OUTSIDE RECORDS SUMMARY | ~2019-09-12 | XMS | Encounter Summary ---
Demographics + + + | Address | [address] | | | [place] [address] | + + + | Home Phone [...] Author | [facility] | | | and [place] | + + + | Organization | [facility] | | [...] | | | | | [place] [address] | | + + + + + | Valentín Saleh | ECON | [phone] | | | | | [place] [address] | | + + + + + | Roberto Carlos Lennon | LEVI | Unknown | | + + + + + Care Team Providers + +------+ + | Care Cnc Mill Programmer Name | Role | Phone | [...] + + | 12/05/ | Telephone | [facility] | Francois Pascal, | Appointment | | 2017 | | MEDICINE [place] | [address] | | | | | [address] | [address], | | | | | [place] | [place] [address] | | | | | [address] | [phone] | | | | | [phone] | | | +--------+ + + + [...] | | | | | | [place] [address] | | | | | | [phone] | | | | | | | | +--------+---------+ + + + documented as of this encounter Visit Diagnoses Not on filedocumented in this encounter"
--- OUTSIDE RECORDS SUMMARY | ~2019-09-12 | XMS | Encounter Summary ---
Demographics + + + | Address | [address] | | | [place] [address] | + + + | Home Phone [...] Author | [facility] | | | and [place] | + + + | Organization | [facility] | | [...] | | | | | [place] [address] | | + + + + + | Valentín Saleh | ECON | [phone] | | | | | [place] [address] | | + + + + + | Roberto Carlos Lennon | LEVI | [place] | | + + + + + Care Team Providers + +------+ + | Care Card Painter Name | Role | Phone | + +------+ + PCP | Unavailable | + +------+ + Encounter Details +--------+ + + + + | Date | Type | Department | Care Team | Description | +--------+ + + + + | 11/07/ | Hospital | [facility] | | | | 1996 | Encounter | MED CTR XRAY [address] | | | | | | [place] | | | | | | [place] [address] | | | | | | [phone] | | | +--------+ + + + [...] | | | | | | [place] [id number] | | | | | | [phone] | | | | | | | | +--------+---------+ + + + documented as of this encounter Visit Diagnoses Not on filedocumented in this encounter"
--- OUTSIDE RECORDS SUMMARY | ~2019-09-12 | XMS | Encounter Summary ---
Demographics + + + | Address | [address] | | | [place] [address] | + + + | Home Phone [...] Author | [facility] | | | and [place] | + + + | Organization | [facility] [...] | | | | | [place] [address] | | + + + + + | Valentín Saleh | ECON | [address] | | | | | [place] [address] | | + + + + + | Roberto Carlos Lennon | LEVI | Unknown | | + + + + + Care Team Providers + +------+ + | Care Bottom Wheeler Name | Role | Phone | [...] + + | 05/31/ | Office | [facility] | Francois Pascal, | Dementia due to | | 2018 | Visit | MEDICINE [place] | [address] | Alzheimer's disease | | | | [address] | [address], | (Primary Dx); | | | | [place] | [place] [address] | Diabetes mellitus | | | | [address] | [phone] | due to underlying | | | | [phone] | | condition with | | | [...] VSD Father 50 Pneumonia Family Hx of Perryman's chorea Sister and 2 brothers: CAD, Perryman's Disease to Malin - with 2 Healthy Children No kidney [...] | | | | | | [place] [address] | | | | | | [phone] | | | | | | | [...]
--- OUTSIDE RECORDS SUMMARY | ~2019-09-12 | XMS | Encounter Summary ---
Demographics + + + | Address | [address] | | | [place] [address] | + + + | Home Phone [...] Author | [facility] | | | and [place] | + + + | Organization | [facility] | [...] | | | | | [place] [address] | | + + + + + | Valentín Saleh | ECON | [phone] | | | | | [place] [address] | | + + + + + | Roberto Carlos Lennon | LEVI | Unknown | | + + + + + Care Team Providers + +------+ + | Care Cutting And Splicing Supervisor Name | Role | Phone | + +------+ + | Francois Pascal MD | PCP | | + +------+ + Reason for Visit + +--------+ + | Reason | Onset | Comments | | | Date | | + +--------+ + | Appointment | 07/06/ | cancel | | | 2012 | | + +--------+ + Encounter Details +--------+ + + + + | Date | Type | Department | Care Team | Description | +--------+ + + + + | 07/06/ | Telephone | [facility] | Fackenthall, | Appointment (cancel) | | 2012 | | NEPHROLOGY [address] | [address] | | | | | [facility] | [address] [facility] | | | | | [place] | [address] | | | | | [address] | [address] | | | | | [phone] | | | +--------+ + + + [...] this encounter Miscellaneous Notes Telephone Encounter - Anika Tobias RN - 07/06/2012 8:22 AM PDTPatient says her g out has flared up in her knee and she can't walk. She started some medication at midnight t hat she has gotten from her PCP for an earlier gout episode. Patient was rescheduled for . She was asked to call her PCP.Electronically signed by Anika Tobias RN at 0 07/06/2012 8:26 AM PDTdocumented in this encounter Plan of [...] | | | | | | [place] [address] | | | | | | [phone] | | | | | | | | +--------+---------+ + + + documented as of this encounter Visit Diagnoses Not on filedocumented in this encounter"
--- OUTSIDE RECORDS SUMMARY | ~2019-09-12 | XMS | Encounter Summary ---
Demographics + + + | Address | [address] | | | [place] [address] | + + + | Home Phone [...] | [facility] | | | and [place]ana | + + + | Organization | [facility] | [...] | | | | | [place] [address] | | + + + + + | Valentín Saleh | ECON | [address] | | | | | [place] [address] | | + + + + + | Roberto Carlos Lennon | LEVI | Unknown | | + + + + + Care Team Providers + +------+ + | Care Traditional Maori Health Practitioner Name | Role | Phone | [...] Description | +--------+--------+ + + + | 07/02/ | Refill | [facility] | Francois Pascal, | Medication Refill | | 2012 | | MEDICINE [place] | [address] | | | | | [address] | [address], | | | | | [place] | [place] [address] | | | | | [address] | [phone] | | | | | [phone] | | | +--------+--------+ + + + [...] this encounter Miscellaneous Notes Telephone Encounter - Analisa Jenkins MD - 07/03/2012 5:52 PM PDTRefilled x 1. Electron johannylly signed by Analisa Jenkins MD at 07/03/2012 5:52 PM PDTdocumented in this encounter Plan of [...] | | | | | | [place] [address] | | | | | | [phone] | | | | | | | | +--------+---------+ + + + documented as of this encounter Visit Diagnoses Not on filedocumented in this encounter"
--- OUTSIDE RECORDS SUMMARY | ~2019-09-12 | XMS | Encounter Summary ---
Demographics + + + | Address | [address] | | | [place] [address] | + + + | Home Phone [...] | [facility] | | | and [place] | + + + | Organization | [facility] | | [...] | | | | | [place] [address] | | + + + + + | Valentín Saleh | ECON | [address] | | | | | [place] [address] | | + + + + + | Roberto Carlos Lennon | LEVI | [place] | | + + + + + Care Team Providers + +------+ + | Care Pneumatic Tester Mechanic Name | Role | Phone | + +------+ + PCP | Unavailable | + +------+ + Encounter Details +--------+ + + + + | Date | Type | Department | Care Team | Description | +--------+ + + + + | 09/02/ | Hospital | [facility] | | | | 2006 | Encounter | MED CTR LABORATORY | | | | | | [address] | | | | | | [place] | | | | | | [address] | | | | | | [phone] | | | +--------+ + + + [...] | | | | | | [place] [address] | | | | | | [phone] | | | | | | | | +--------+---------+ + + + documented as of this encounter Visit Diagnoses Not on filedocumented in this encounter"
--- OUTSIDE RECORDS SUMMARY | ~2019-09-12 | XMS | Encounter Summary ---
Demographics + + + | Address | [address] | | | [place] [address] | + + + | Home Phone [...] + | Author | [facility] | | | and [place] | + + + | Organization | [facility] | | [...] | | | | | [place] [address] | | + + + + + | Valentín Saleh | ECON | [address] | | | | | [place] [address] | | + + + + + | Roberto Carlos Lennon | LEVI | [place] | | + + + + + Care Team Providers + +------+ + | Care Plastics Fitter Name | Role | Phone | + +------+ + PCP | Unavailable | + +------+ + Encounter Details +--------+ + + + + | Date | Type | Department | Care Team | Description | +--------+ + + + + | 03/06/ | Hospital | [facility] | Francois Pascal, | | | 2008 | Encounter | MED CTR XRAY [address] | [address] | | | | | [place] | [address] [place], | | | | | [place] [address] | [place] [address] | | | | | [phone] | [phone] | | | | | | | [...] | | | | | | [place] [address] | | | | | | [phone] | | | | | | | | +--------+---------+ + + + documented as of this encounter Visit Diagnoses Not on filedocumented in this encounter"
--- OUTSIDE RECORDS SUMMARY | ~2019-09-12 | XMS | Encounter Summary ---
Demographics + + + | Address | [address] | | | [place] [address] | + + + | Home Phone [...] | [facility] | | | and [place] | + + + | Organization | [facility] [...] | | | | | [place] [address] | | + + + + + | Valentín Saleh | ECON | [address] | | | | | [place] [address] | | + + + + + | Roberto Carlos Lennon | LEVI | Unknown | | + + + + + Care Team Providers + +------+ + | Care Gate Agent Name | Role | Phone | [...] [address] | [address] [facility] | (MODERATE) (Primary | | | | [place], [place] | [address] [place], [place] | Dx); Gout, | | | | [address] | [address] | unspecified cause, | | | | [phone] | | unspecified | | | | [...] | | | | | | [place] [address] | | | | | | [phone] | | | | | | | [...] + | [facility] | [address] | [place] | [phone] | | [facility] | | [address] | | | - LABORATORY | | [...] | [address] | | | [facility] | | | | | [...] [address] | [place] | [phone] | | [facility] | | [address] | | | - LABORATORY | | [...] [address] | [place] | [phone] | | [facility] | | [address] | | | - LABORATORY | | [...] mL/min/1.73m2 | [facility] | | | [place] | | | MEDICAL | | | [...] [address] | [place] | [phone] | | [facility] | | [address] | | | - LABORATORY | | [...]
--- OUTSIDE RECORDS SUMMARY | ~2019-09-12 | XMS | Encounter Summary ---
Demographics + + + | Address | [address] | | | [place] [address] | + + + | Home Phone [...] + | Author | [facility] | | | and [place] | + + + | Organization | [facility] | | [...] | | | | | [place] [address] | | + + + + + | Valentín Saleh | ECON | [address] | | | | | [place] [address] | | + + + + + | Roberto Carlos Lennon | LEVI | Unknown | | + + + + + Care Team Providers + +------+ + | Care Ornamental Metalwork Designer Name | Role | Phone | + +------+ + | Francois Pascal MD | PCP | | + +------+ + Encounter Details +--------+ + + + + | Date | Type | Department | Care Team | Description | +--------+ + + + + | 03/14/ | Hospital | [facility] | Francois Pascal, | DM (diabetes | | 2012 - | Encounter | MED CTR LABORATORY | [address] | mellitus) ([facility]); | | | | [address] [place] | [address], | ARTHRITIS, CHRONIC | | 03/16/ | | [place], [place] | [place] [address] | | | 2012 | | [address] | [phone] | | | | | [phone] | | | +--------+ + + + [...] | | | | | mellitus) ([facility]) | | | | | | + [...] | | | | | | [place] [address] | | | | | | [phone] | | | | | | | [...] + | [facility] | [address] | [place] | [phone] | | [facility] | | [address] | | | - LABORATORY | | | | + + + + + | [facility] | [address] | [place], [place] | | | [facility] | | [address] | | | - LABORATORY | [...] 3.5 | 3.2 - 5.0 gm/dL | [facility] | | | | | | [facility] | | [facility] | | | | | | [facility] - | | | | | | LABORATORY | | + + + + + + | BUN | 18 | 7 - 18 mg/dL | [facility] | | | | | | [facility] | | | | | | [facility] | | | | | | [facility] - | | | | | | LABORATORY | | + + + + + + | Creatinine | 1.18 | 0.60 - 1.30 | [facility] | | | | | mg/dL | [...] | | [facility] | | | [facility] | | | - LABORATORY | + + + + + + + + | Performing | Address | City/State/Zipcode | Phone Number | | Organization | | | | + + + + + | [facility] | [address] | [place] | [phone] | | [facility] | | [address] | | | - LABORATORY | | | | + + + + + | [facility] | [address] | [place] | | | [facility] | | [address] | | | - LABORATORY | [...] + | [facility] | [address] | [place], [place] | [phone] | | [facility] | | [address] | | | - LABORATORY | | | | + + + + + | [facility] | [address] | [place], [place] | | | [facility] | | [address], [facility] | | [...]
--- OUTSIDE RECORDS SUMMARY | ~2019-09-12 | XMS | Encounter Summary ---
Demographics + + + | Address | [address] | | | [place] [address] | + + + | Home Phone [...] | Author | [facility] | | | and [place] | + + + | Organization | [facility] | | | and [place] | + + + | Address | Unknown | + + + | Phone | Unavailable | + + + Support + + + + + | Name | Relationship | Address | Phone | + + + + + | Sigrid Lennon | ECON | [address] | | | | | [place] [address] | | + + + + + | Valentín Saleh | ECON | [address] | | | | | [place] [address] | | + + + + + | Roberto Carlos Lennon | LEVI | Unknown | | + + + + + Care Team Providers + +------+ + | Care Front Desk Assistant Name | Role | Phone | [...] | 05/21/ | Refill | [facility] | Francois Pascal, | Medication Refill | | 2020 | | [facility] | [address] | | | | | [address] | [address] [place], | | | | | [place] | [place] [address] | | | | | [address] | [phone] | | | | | [phone] | | | +--------+--------+ + + + [...] | | | | | | [place] [address] | | | | | | [phone] | | | | | | | | +--------+---------+ + + + documented as of this encounter Visit Diagnoses + + | Diagnosis | + + | Reactive depression Dysthymic disorder | + + documented in this encounter"
--- OUTSIDE RECORDS SUMMARY | ~2019-09-12 | XMS | Encounter Summary ---
Demographics + + + | Address | [address] | | | [place] [address] | + + + | Home Phone [...] Author | [facility] | | | and [place] | + + + | Organization | [facility] | | | [...] | | | | | [place] [address] | | + + + + + | Valentín Saleh | ECON | [address] | | | | | [place] [address] | | + + + + + | Roberto Carlos Lennon | LEVI | [place] | | + + + + + Care Team Providers + +------+ + | Care Quarter Section Ironer Name | Role | Phone | + +------+ + PCP | Unavailable | + +------+ + Encounter Details +--------+ + + + + | Date | Type | Department | Care Team | Description | +--------+ + + + + | 02/17/ | Hospital | [facility] | | | | 2006 | Encounter | MED CTR XRAY [address] | | | | | | [place] | | | | | | [place] [address] | | | | | | [phone] | | | +--------+ + + + [...] | | | | | | [place] [address] | | | | | | [phone] | | | | | | | | +--------+---------+ + + + documented as of this encounter Visit Diagnoses Not on filedocumented in this encounter"
--- OUTSIDE RECORDS SUMMARY | ~2019-09-12 | XMS | Encounter Summary ---
Demographics + + + | Address | [address] | | | [place] [address] | + + + | Home Phone [...] + | Author | [facility] | | | and [place] | + + + | Organization | [facility] [...] | | | | | [place] [address] | | + + + + + | Valentín Saleh | ECON | [address] | | | | | [place] [address] | | + + + + + | Roberto Carlos Lennon | LEVI | Unknown | | + + + + + Care Team Providers + +------+ + | Care Intel Recruiter Name | Role | Phone | + +------+ + | Francois Pascal MD | PCP | | + +------+ + Reason for Visit +---------+--------+ + | Reason | Onset | Comments | | | Date | | +---------+--------+ + | Illness | 11/14/ | | | | 2014 | | +---------+--------+ + Encounter Details +--------+ + + + + | Date | Type | Department | Care Team | Description | +--------+ + + + + | 11/14/ | Telephone | [facility] | Francois Pascal, | Illness | | 2014 | | MEDICINE [address] | [address] | | | | | [address]VE [place], | [address] [place], | | | | | [place] [address] | [place] [address] | | | | | [phone] | [phone] | | | | | | | [...] Telephone Encounter - Airam Menjivar RN - 11/14/2014 2:05 PM PDTPatient came in to talk to nurse about patient having more abdominal pain and pain into groin. s tates patient is on antibiotics and is also fatigued. States he thinks it might be due to t he med she's on. Informed that the doctor is the only one who could make the decisio n about changing her meds or diagnostics to determine why she is having pain. Wanted to kno w if patient could get in this afternoon. was advised if patient was in that much p ain, she needs to be taken to ER instead. Patient pushed for her to be seen and was given an appointment for her tomorrow. Electronically signed by Airam Menjivar RN at 12/2014 2:09 PM PDTdocumented in this encounter Plan of [...] | | | | | | [place] [address] | | | | | | [phone] | | | | | | | | +--------+---------+ + + + documented as of this encounter Visit Diagnoses Not on filedocumented in this encounter"
--- OUTSIDE RECORDS SUMMARY | ~2019-09-12 | XMS | Encounter Summary ---
Demographics + + + | Address | [address] | | | [place] [address] | + + + | Home Phone [...] | Author | [facility] | | | and [place] | + + + | Organization | [facility] [place] | | | and [place] | + + + | Address | Unknown | + + + | Phone | Unavailable | + + + Support + + + + + | Name | Relationship | Address | Phone | + + + + + | Sigird Lennon | ECON | [address] | | | | | [place] [address] | | + + + + + | Valentín Saleh | ECON | [address] | | | | | [place] [address] | | + + + + + | Roberto Carlos Lennon | LEVI | [place] | | + + + + + Care Team Providers + +------+ + | Care Top Precipitator Operator Name | Role | Phone | + +------+ + PCP | Unavailable | + +------+ + Encounter Details +--------+ + + + + | Date | Type | Department | Care Team | Description | +--------+ + + + + | 05/06/ | Hospital | [facility] | Jason Hernandez, | | | 2009 | Encounter | MED CTR XRAY [address] | PA-C [address] | | | | | [place] | [address] [place] | | | | | [place] [address] | [place] [address] | | | | | [phone] | [phone] | | | | | | | [...] | | | | | | [place] [address] | | | | | | [phone] | | | | | | | | +--------+---------+ + + + documented as of this encounter Visit Diagnoses Not on filedocumented in this encounter"
--- OUTSIDE RECORDS SUMMARY | ~2019-09-12 | XMS | Encounter Summary ---
Demographics + + + | Address | [address] | | | [place] [address] | + + + | Home Phone [...] + | Author | [facility] | | | and [place] | + + + | Organization | [facility] | [...] [address] | | | | | [place] [address] | | + + + + + | Valentín Saleh | ECON | [address] | | | | | [place] [address] | | + + + + + | Roberto Carlos Lennon | LEVI | [place] | | + + + + + Care Team Providers + +------+ + | Care Retail Event Assistant Name | Role | Phone | + +------+ + PCP | Unavailable | + +------+ + Encounter Details +--------+ + + + + | Date | Type | Department | Care Team | Description | +--------+ + + + + | 08/08/ | Hospital | [facility] | | | | 2007 | Encounter | MED CTR MP INTRA OP | | | | | | [address] | | | | | | [place] | | | | | | [address] | | | | | | [phone] | | | +--------+ + + + [...] | | | | | | [place] [address] | | | | | | [phone] | | | | | | | | +--------+---------+ + + + documented as of this encounter Visit Diagnoses Not on filedocumented in this encounter"
--- OUTSIDE RECORDS SUMMARY | ~2019-09-12 | XMS | Encounter Summary ---
Demographics + + + | Address | [address] | | | [place] [address] | + + + | Home Phone [...] | Author | [facility] | | | and [place] | + + + | Organization | [facility] [...] | | | | | [place] [address] | | + + + + + | Valentín Saleh | ECON | [address] | | | | | [place] [address] | | + + + + + | Roberto Carlos Lennon | LEVI | Unknown | | + + + + + Care Team Providers + +------+ + | Care Tubular Products Fabricator Name | Role | Phone | + [...] | instability | [address] | [address] | | | | n | [address] | [address] | [place], | | | | | (ICD-10-CM) | [place] | [place] [address] | | | | | - [address] | [place] | Phone: | | | | | (ICD-9-CM) - | [address] | [phone] | | | | | Gait | Phone: | Fax: | | | | | instability | [phone] | [phone] | | | | | Procedures | Fax: | | | | | | pt eval | [phone] | | +--------+ + + + + + Encounter Details +--------+---------+ + + + | Date | Type | Department | Care Team | Description | +--------+---------+ + + + | 01/15/ | Office | [facility] | Francois Pascal, | Impaired functional | | 2015 | Visit | MED CTR THERAPY PT | MD [address] | mobility, balance, | | | | OP [address] | [address] [place], | gait, and endurance | | | | [place] | [place] [address] | (Primary Dx); | | | | [address] | [phone] | Posture imbalance; | | | | [phone] | | Left ankle pain | | | | | Cheyenne Caballero, | | | | | | AIRWORTHINESS INSPECTOR [address] | | | | | | [place] | | | | | | [address] | | | | | | | [...] of this encounter Progress Notes Cheyenne Caballero, AIRWORTHINESS INSPECTOR - 01/15/2015 11:39 AM PSTFormatting of this note might be different f rom the original. [facility] CTR THERAPY PT OP [address] [place] [address] Physical Therapy Daily Treatment Note Date: 01/15/2015 Patient Information Patient Name: Alyson Lennon Date of : 1930 Age: 84 y.o. Encounter Diagnoses Code Name Primary? Z74.09 Impaired functional mobility, balance, gait, and endurance Yes R29.3 Posture imbalance M25.572 Left ankle pain Date of Onset: 10/24/14 Referring Provider: Francois Pascal MD Rehab Precautions Office Visit from 12/24/2014 in [facility] CTR THERAPY PT OP Rehab Precautions Precautions Comments fall risk Start Time: 1100 Stop time: 1145 Duration: 45 minutes Timed Treatment Codes: 45 minutes # of PT Visits to Date: 5 Subjective: Pt had to walk in without an assistive device, her brought her walker later. Pain Assessment Pain Scale Used: NUMERIC Pain Rating Pre Assessment: 4 Pain Rating Post Assessment: 2 Location: left ankle Objective: Education: perform HEP daily, goal is to feel a stretch with the movements Manual Therapy: to increase ROm Manual stretching into DF/PF, inversion, eversion Exercises to increase ankle ROM- Small then large rocker board fwd/bkwd, side to side Sidestepping and bkwd walking on ramp, emphasis on equal step length Ankle alpahabet Neuromuscular re-ed to improve balance for safe ambulation, decrease fall risk- Standing on discs with head turns mod assist Standing on foam with head turns, eyes open/closed, with small [place] CGA-mod assist SLS, SLS on foam Clock and box stepping ex CGA/min assist-emphasis on equal step length, weight shifts Slow toe taps 6 inch step min assist without UE support Assessment: Stride length shorter in all directions on the left during ramp, clock, and box activity. Plan: Continue with manual therapy, strengthening, and balance training. Electronically signed by: Cheyenne Caballero PTA, 01/15/2015 11:39 Patient Name: Alyson Lennon/: 1930/ documented in [...] | | | | | | [place] [address] | | | | | | [phone] | | | | | | | [...]
--- OUTSIDE RECORDS SUMMARY | ~2019-09-12 | XMS | Encounter Summary ---
Demographics + + + | Address | [address] | | | [place] [address] | + + + | Home Phone [...] [facility] | | | and [place] | + + + | Organization | [facility] | | | [...] | | | | | [place] [address] | | + + + + + | Valentín Saleh | ECON | [address] | | | | | [place] [address] | | + + + + + [...] | | | [place], [place] | [place] [address] | | | | | | [address] | Phone: | | | | | | Phone: | [phone] | | | | | | [phone] | Fax: | | | | | | Fax: | [phone] | | | | | | [phone] | | +--------+ + + + + [...] [place], | | | | | [place] [id number] | [place] [address] | | | | | [phone] | [phone] | | | | | | | [...] | | | | | | [place] [address] | | | | | | [phone] | | | | | | | [...]
--- OUTSIDE RECORDS SUMMARY | ~2019-09-12 | XMS | Encounter Summary ---
Demographics + + + | Address | [address] | | | [place] [address] | + + + | Home Phone [...] Author | [facility] | | | and [place] | + + + | Organization | [facility] [...] | | | | | [place] [address] | | + + + + + | Valentín Saleh | ECON | [address] | | | | | [place] [address] | | + + + + + | Roberto Carlos Lennon | LEVI | Unknown | | + + + + + Care Team Providers + +------+ + | Care Boardmarker Name | Role | Phone | + +------+ + | Francois Pascal MD | PCP | | + +------+ + Encounter Details +--------+ + + + + | Date | Type | Department | Care Team | Description | +--------+ + + + + | 12/04/ | Hospital | [facility] | Francois Pascal, | | | 2013 | Encounter | MED CTR LABORATORY | [address] | | | | | [address] [place] | [address] [place], | | | | | [place] | [place] [address] | | | | | [address] | [phone] | | | | | [phone] | | | +--------+ + + + [...] | | | | | | [place] [address] | | | | | | [phone] | | | | | | | | +--------+---------+ + + + documented as of this encounter Visit Diagnoses Not on filedocumented in this encounter"
--- OUTSIDE RECORDS SUMMARY | ~2019-09-12 | XMS | Encounter Summary ---
Demographics + + + | Address | [address] | | | [place] [address] | + + + | Home Phone [...] [facility] | | | and [place] | + + + | Organization | [facility] | | [...] | | | | | [place] [address] | | + + + + + | Valentín Saleh | ECON | [address] | | | | | [place] [address] | | + + + + + | Roberto Carlos Lennon | LEVI | Unknown | | + + + + + Care Team Providers + +------+ + | Care Organ Pipe Finisher Name | Role | Phone | [...] + | 12/27/ | Refill | [facility] | Stephenie Paul, | Medication Refill | | 2012 | | CARDIOLOGY [address] | MD [address] [place] | | | | | [place], | [place], | | | | | [place] [address] | [place] [address] | | | | | [phone] | [phone] | | | | | | | [...] | | | | | | [place] [address] | | | | | | [phone] | | | | | | | | +--------+---------+ + + + documented as of this encounter Visit Diagnoses Not on filedocumented in this encounter"
--- OUTSIDE RECORDS SUMMARY | ~2019-09-12 | XMS | Encounter Summary ---
Demographics + + + | Address | [address] | | | [place] [address] | + + + | Home Phone [...] Author | [facility] | | | and [place] | + + + | Organization | [facility] | [...] | | | | | [place] [address] | | + + + + + | Valentín Saleh | ECON | [address] | | | | | [place] [address] | | + + + + + | Roberto Carlos Lennon | LEVI | [place] | | + + + + + Care Team Providers + +------+ + | Care Health And Safety Inspector Name | Role | Phone | + +------+ + PCP | Unavailable | + +------+ + Encounter Details +--------+ + + + + | Date | Type | Department | Care Team | Description | +--------+ + + + + | 02/20/ | Hospital | [facility] | Francois Pascal, | | | 2008 | Encounter | MED CTR XRAY [address] | [address] | | | | | [place] | [address] [place], | | | | | [place] [address] | [place] [address] | | | | | [phone] | [phone] | | | | | | | [...] | | | | | | [place] [address] | | | | | | [phone] | | | | | | | | +--------+---------+ + + + documented as of this encounter Visit Diagnoses Not on filedocumented in this encounter"
--- OUTSIDE RECORDS SUMMARY | ~2019-09-12 | XMS | Encounter Summary ---
Demographics + + + | Address | [address] | | | [place] [address] | + + + | Home Phone [...] | Author | [facility] | | | and [place] | + + + | Organization | [facility] | [...] | | | | | [place] [address] | | + + + + + | Valentín Saleh | ECON | [address] | | | | | [place] [address] | | + + + + + | Roberto Carlos Lennon | LEVI | [place] | | + + + + + Care Team Providers + +------+ + | Care Nylon Machine Operator Name | Role | Phone | + +------+ + PCP | Unavailable | + +------+ + Encounter Details +--------+ + + + + | Date | Type | Department | Care Team | Description | +--------+ + + + + | 06/09/ | Hospital | [facility] | | | | 2006 | Encounter | MED CTR LABORATORY | | | | | | [address] [place] | | | | | | [place] | | | | | | [address] | | | | | | [phone] | | | +--------+ + + + [...] | | | | | | [place] [address] | | | | | | [phone] | | | | | | | | +--------+---------+ + + + documented as of this encounter Visit Diagnoses Not on filedocumented in this encounter"
--- OUTSIDE RECORDS SUMMARY | ~2019-09-12 | XMS | Encounter Summary ---
Demographics + + + | Address | [address] | | | [place] [address] | + + + | Home Phone [...] + | Author | [facility] | | | and [place] | + + + | Organization | [facility] | | [...] | | | | | [place] [address] | | + + + + + | Valentín Saleh | ECON | [address] | | | | | [place] [address] | | + + + + + | Roberto Carlos Lennon | LEVI | Unknown | | + + + + + Care Team Providers + +------+ + | Care Road Driver Name | Role | Phone | [...] | instability | [address] | [place] | | | | n | [address] | [address] | [place], | | | | | (ICD-10-CM) | [place] | [place] [address] | | | | | - [address] | [place] | Phone: | | | | | (ICD-9-CM) - | [address] | [phone] | | | | | Gait | Phone: | Fax: | | | | | instability | [phone] | [phone] | | | | | Procedures | Fax: | | | | | | pt eval | [phone] | | +--------+ + + + + + Encounter Details +--------+---------+ + + + | Date | Type | Department | Care Team | Description | +--------+---------+ + + + | 01/20/ | Office | [facility] | Francois Pascal, | Posture imbalance | | 2015 | Visit | MED CTR THERAPY PT | MD [address] | (Primary Dx); | | | | OP [address] | [address] [place], | Impaired functional | | | | [place] | [place] [address] | mobility, balance, | | | | [address] | [phone] | gait, and endurance; | | | | [phone] | | Left ankle pain | | | | | Cheyenne Caballero, | | | | | | SUPERVISOR COIN MACHINE [address] | | | | | | [place] | | | | | | [address] | | | | | | | [...] of this encounter Progress Notes Cheyenne Caballero, SUPERVISOR COIN MACHINE - 01/20/2015 1:48 PM PSTFormatting of this note might be different f rom the original. [facility] CTR THERAPY PT OP [address] [place] [address] Physical Therapy Daily Treatment Note Date: 01/20/2015 [...] for LAQ';s. 0# for seated marching Ankle alpahabet Neuromuscular re-ed to improve balance [...] | | MD Rojas [facility] | | | | | | [place], | | | | | | [place] [address] | | | | | | [phone] | | | | | | | [...]
--- OUTSIDE RECORDS SUMMARY | ~2019-09-12 | XMS | Encounter Summary ---
Demographics + + + | Address | [address] | | | [place] [address] | + + + | Home Phone [...] | Author | [facility] | | | and [place] | + + + | Organization | [facility] [...] | | | | | [place] [address] | | + + + + + | Valentín Saleh | ECON | [address] | | | | | [place] [address] | | + + + + + | Roberto Carlos Lennon | LEVI | [place] | | + + + + + Care Team Providers + +------+ + | Care Screw Machine Adjuster Automatic Name | Role | Phone | + +------+ + PCP | Unavailable | + +------+ + Encounter Details +--------+ + + + + | Date | Type | Department | Care Team | Description | +--------+ + + + + | 04/28/ | Hospital | [facility] | Jason Hernandez, | | | 2010 | Encounter | MED CTR XRAY [address] | PA-C [address] | | | | | [place] | [address] [place] | | | | | [place] [address] | [place] [address] | | | | | [phone] | [phone] | | | | | | | [...] | | | | | | [place] [address] | | | | | | [phone] | | | | | | | | +--------+---------+ + + + documented as of this encounter Visit Diagnoses Not on filedocumented in this encounter"
--- OUTSIDE RECORDS SUMMARY | ~2019-09-12 | XMS | Encounter Summary ---
Demographics + + + | Address | [address] | | | [place] [address] | + + + | Home Phone [...] | Author | [facility] | | | and [place] | + + + | Organization | [facility] [...] | | | | | [place] [address] | | + + + + + | Valentín Saleh | ECON | [address] | | | | | [place] [address] | | + + + + + | Roberto Carlos Lennon | LEVI | [place] | | + + + + + Care Team Providers + +------+ + | Care Commercial Green Building Designer Name | Role | Phone | + +------+ + PCP | Unavailable | + +------+ + Encounter Details +--------+ + + + + | Date | Type | Department | Care Team | Description | +--------+ + + + + | 03/28/ | Hospital | [facility] | | | | 2000 - | Encounter | MED CTR DIETARY | | | | | | [address] [place] | | | | 06/26/ | | [place] [address] | | | | 2000 | | [phone] | | | +--------+ + + + [...] | | | | | | [place] [address] | | | | | | [phone] | | | | | | | | +--------+---------+ + + + documented as of this encounter Visit Diagnoses Not on filedocumented in this encounter"
--- OUTSIDE RECORDS SUMMARY | ~2019-09-12 | XMS | Encounter Summary ---
Demographics + + + | Address | [address] | | | [place] [address] | + + + | Home Phone [...] | Author | [facility] | | | and Clarkeana | + + + | Organization | [facility] | | [...] [address] | | | | | [place] [address] | | + + + + + | Valentín Saleh | ECON | [address] | | | | | [place] [address] | | + + + + + | Roberto Carlos Lennon | LEVI | Unknown | | + + + + + Care Team Providers + +------+ + | Care Provider Relations Specialist Name | Role | Phone | [...] + | 10/14/ | Telephone | [facility] | Francois Pascal, | Medication Refill | | 2015 | | [place] [address] [address] | [address] | | | | | [address] [place], | [address] [place], | | | | | [place] [address] | [place] [address] | | | | | [phone] | [phone] | | | | | | | [...] | | | | | | [place] [address] | | | | | | [phone] | | | | | | | [...] | | | | g/dL | [facility] | | | | | | MEDICAL [...] [address] | [place] | [phone] | | [facility] | | [address] | | | - LABORATORY | | [...] not | 31 (L)Comment: | >=60 | [facility] | | | | GLOMERULAR FILTRATION | mL/min/1.73m2 | [facility] | | | AUSTRIAN | RATE,ESTIMATED | | MEDICAL | | | | mL/min/1.83i4Pfsj than | | CENTER - | | [...] [address] | [place] | [phone] | | [facility] | | [address] | | | - LABORATORY | | [...] [address] | [place] | [phone] | | [facility] | | [address] | | | - LABORATORY | | [...] | 1.30 | 0.60 - 1.30 | [facility] | | | | | mg/dL [...] mL/min/1.73m2 | [facility] | | | AUSTRIAN | RATE,ESTIMATED | | MEDICAL | | | | mL/min/1.17o5Zkfk than | | CENTER - | | [...] ST. | [address] | [place] | [phone] | | [facility] | | [address] | | | - LABORATORY | | | | + + + + + documented in this encounter Visit Diagnoses + + | Diagnosis | + + | High risk medication use - Primary Encounter for long-term (current) use of other | | medications | + + documented in this encounter"
--- OUTSIDE RECORDS SUMMARY | ~2019-09-12 | XMS | Encounter Summary ---
Demographics + + + | Address | [address] | | | [place] [address] | + + + | Home Phone [...] | Author | [facility] | | | and [place]ana | + + + | Organization | [facility] [...] | | | | | [place] [address] | | + + + + + | Valentín Saleh | ECON | [address] | | | | | [place] [address] | | + + + + + | Roberto Carlos Lennon | LEVI | Unknown | | + + + + + Care Team Providers + +------+ + | Care Elocution Teacher Name | Role | Phone | [...] + | 11/27/ | Telephone | [facility] | Francois Pascal, | Appointment | | 2014 | | MEDICINE [address] [place] [address] | [address] | | | | | [place], | [address] [place], | | | | | [place] [address] | [place] [address] | | | | | [phone] | [phone] | | | | | | | [...] | | | | | | [place] [address] | | | | | | [phone] | | | | | | | | +--------+---------+ + + + documented as of this encounter Visit Diagnoses Not on filedocumented in this encounter"
--- OUTSIDE RECORDS SUMMARY | ~2019-09-12 | XMS | Encounter Summary ---
Demographics + + + | Address | [address] | | | [place] [address] | + + + | Home Phone [...] | | | | | [place] [address] | | + + + + + | Valentín Saleh | ECON | [address] | | | | | [place] [address] | | + + + + + | Roberto Carlos Lennon | LEVI | [place] | | + + + + + Care Team Providers + +------+ + | Care Residential Program Director Name | Role | Phone | + +------+ + PCP | Unavailable | + +------+ + Encounter Details +--------+ + + + + | Date | Type | Department | Care Team | Description | +--------+ + + + + | 02/09/ | Hospital | [facility] | RiderMauricio villarreal | | | 2009 | Encounter | MED CTR XRAY [address] | [place] [facility] | | | | | [facility] [address] | [place] | | | | | [place] [address] | [address] | | | | | [phone] | | | +--------+ + + + [...] | | | | | | [place] [address] | | | | | | [phone] | | | | | | | | +--------+---------+ + + + documented as of this encounter Visit Diagnoses Not on filedocumented in this encounter"
--- OUTSIDE RECORDS SUMMARY | ~2019-09-12 | XMS | Encounter Summary ---
Demographics + + + | Address | [address] | | | [place] [address] | + + + | Home Phone [...] Author | [facility] | | | and Clarkeana | + + + | Organization | [facility] | | [...] | | | | | [place] [address] | | + + + + + | Valentín Saleh | ECON | [address] | | | | | [place] [address] | | + + + + + | Roberto Carlos Lennon | LEVI | Unknown | | + + + + + Care Team Providers + +------+ + | Care Lathe Winder Name | Role | Phone | + [...] Description | +--------+--------+ + + + | 07/19/ | Refill | [facility] [place] [facility] | Francois Pascal, | Medication Refill | | 2014 | | MEDICINE [place] | [address] | | | | | [address] | [address] [place], | | | | | [place] | [place] [address] | | | | | [address] | [phone] | | | | | [phone] | | | +--------+--------+ + + + [...] | | | | | | [place] [address] | | | | | | [phone] | | | | | | | [...]
--- OUTSIDE RECORDS SUMMARY | ~2019-09-12 | XMS | Encounter Summary ---
Demographics + + + | Address | [address] | | | [place] [address] | + + + | Home Phone [...] + | Author | [facility] | | | and [place] | + + + | Organization | [facility] [...] | | | | | [place] [address] | | + + + + + | Valentín Saleh | ECON | [address] | | | | | [place] [address] | | + + + + + | Roberto Carlos Lennon | LEVI | Unknown | | + + + + + Care Team Providers + +------+ + | Care Coverage Specialist Name | Role | Phone | + +------+ + | Francois Pascal MD | PCP | | + +------+ + Reason for Visit + +--------+ + | Reason | Onset | Comments | | | Date | | + +--------+ + | Medication | 11/20/ | Glucose | | Management | 2019 | | + +--------+ + Encounter Details +--------+ + + + + | Date | Type | Department | Care Team | Description | +--------+ + + + + | 11/20/ | Telephone | [facility] | Francois Pascal, | Medication | | 2018 | | MEDICINE [place] | [address] | Management (Glucose | | | | [address] | [address] [place], | ) | | | | [place] | [place] [address] | | | | | [address] | [phone] | | | | | [phone] | | | +--------+ + + + [...] this encounter Miscellaneous Notes Telephone Encounter - Yaima Mireles - 11/20/2018 3:26 PM PDTFaxed to [facility] tronically signed by Yaima Mireles at 11/20/2018 3:27 PM PDTTelephone Encounter - Demetrius Yee LPN - 11/20/2018 11:07 AM PDTReceived DWO form for patients Glucose test strips. Form completed and sent to Dr Pascal for signature and review. Once signed it needs to be faxed to [facility]. Tdocumented in this encounter Plan of Treatment +--------+---------+ + + + | Date | Type | Specialty | Care Team | Description | +--------+---------+ + + + | 12/06/ | Office | Cardiology | MakfernandarozRobertpato, | | | 2019 | Visit | | MD Bob [address] | | | | | | [place], | | | | | | [place] [address] | | | | | | [phone] | | | | | | | | +--------+---------+ + + + documented as of this encounter Visit Diagnoses Not on filedocumented in this encounter"
--- OUTSIDE RECORDS SUMMARY | ~2019-09-12 | XMS | Encounter Summary ---
Demographics + + + | Address | [address] | | | [place] [address] | + + + | Home Phone [...] Author | [facility] | | | and [place]ana | + + + | Organization | [facility] | [...] | | | | | [place] [address] | | + + + + + | Valentín Saleh | ECON | [address] | | | | | [place] [address] | | + + + + + | Roberto Carlos Lennon | LEVI | Unknown | | + + + + + Care Team Providers + +------+ + | Care Enterostomal Nurse Name | Role | Phone | [...] | 09/16/ | Telephone | [facility] [place] [facility] | Francois Pascal, | Imaging Only | | 2016 | | MEDICINE [address] | [address] | | | | | [place], | [address] [place], | | | | | [place] [address] | [place] [address] | | | | | [phone] | [phone] | | | | | | | [...] 9:50 A M PDTContact/Caller: Sigrid Contact Number: [phone] Provider/Nurse: Naida Reason for Call: Patient's spouse is stating that Renee Giang wanted to discharge patient to jail. Patient's spouse states that the family is [...] | | | | | | [place] [address] | | | | | | [phone] | | | | | | | | +--------+---------+ + + + documented as of this encounter Visit Diagnoses Not on filedocumented in this encounter"
--- OUTSIDE RECORDS SUMMARY | ~2019-09-12 | XMS | Encounter Summary ---
Demographics + + + | Address | [address] | | | [place] [address] | + + + | Home Phone [...] | Author | [facility] | | | and [place]ana | + + + | Organization | [facility] | [...] | | | | | [place] [address] | | + + + + + | Valentín Saleh | ECON | [address] | | | | | [place] [address] | | + + + + + | Roberto Carlos Lennon | LEVI | Unknown | | + + + + + Care Team Providers + +------+ + | Care Traffic Manager Name | Role | Phone | [...] Description | +--------+--------+ + + + | 02/21/ | Refill | [facility] [place] [facility] | Francois Pascal, | Medication Refill | | 2019 | | MEDICINE [place] | [address] | | | | | [address] | [address] [place], | | | | | [place] | [place] [address] | | | | | [address] | [phone] | | | | | [phone] | | | +--------+--------+ + + + [...] Telephone Encounter - Yamileth Bah RN - 03/09/2019 5:38 PM PSTLast appointment: 10/10 Next appointment: None (message sent to front) No refill protocol, is it ok to refill this medication? documented in this encounter Plan of Treatment +--------+---------+ + + + | Date | Type | Specialty | Care Team | Description | +--------+---------+ + + + | 12/06/ | Office | Cardiology | Stephenie Paul, | | 2019 | Visit | | MD Bob [address] | | | | | | [place], | | | | | | [place] [address] | | | | | | [phone] | | | | | | | | +--------+---------+ + + + documented as of this encounter Visit Diagnoses Not on filedocumented in this encounter"
--- OUTSIDE RECORDS SUMMARY | ~2019-09-12 | XMS | Encounter Summary ---
Demographics + + + | Address | [address] | | | [place] [address] | + + + | Home Phone [...] | Author | [facility] | | | and [place] | + + + | Organization | [facility] | | [...] | | | | | [place] [address] | | + + + + + | Valentín Saleh | ECON | [address] | | | | | [place] [address] | | + + + + + | Roberto Carlos Lennon | LEVI | Unknown | | + + + + + Care Team Providers + +------+ + | Care Hand Stapler Name | Role | Phone | + [...] Description | +--------+---------+ + + + | 01/05/ | Office | [facility] | [place], | CHRONIC KIDNEY | | 2011 | Visit | NEPHROLOGY [address] | [address] | DISEASE STAGE III | | | | [address] | [address] | (MODERATE) (Primary | | | | [place] | [address] [place] [address] | Dx); HTN CKD UNS | | | | [address] | [address] | W/CKD STAGE I THRU | | | | [phone] | | STAGE IV/UNS; | | | | | | DIABETES MELLITUS, | | | | | | TYPE II, CONTROLLED, | | | | | | WITH COMPLICATIONS; | | | | | | Vitamin d | | | | | | deficiency [...] + + + | Blood Pressure | 132/66 | 01/06/2012 10:32 AM | | | | | PDT | | + + + + + | Pulse | 58 | 01/06/2012 10:32 AM | | | [...] + + + + | Weight | 78.7 kg (173 lb 6.4 | 01/06/2012 10:32 AM | | | | oz) | PDT | | + + + + + | Height | 158.8 cm (5' 2.5") | 01/06/2012 10:32 AM | | | | | PDT | | + + + + + | Body Mass Index | 31.21 | 01/06/2012 10:32 AM | | | | | PDT | | + + + + + documented in this encounter Patient Instructions Patient Instructions Kemar Herndon ARNP - 01/06/2012 11:06 AM PDTPlease monitor b lood pressure at home. Goal <130/80. Notify office if not within goal. Diabetic goals: Hgb A1c <7% and blood sugars 90-140. Please avoid taking NSAIDs. These are some commonly used NSAIDs: ibuprofen (Motrin,Advil), naproxen (Aleve, Naprosyn), celecoxib (Celebrex), indomethacin (Indocin), meloxicam (Mobic). documented in this encounter Progress Notes Janice Lucero - 01/21/2012 2:[address] Pascal on 01/21/12 as requested.Tiesha ctronically signed by Janice Lucero at 01/21/2012 2:25 PM Kemar Guajardo ARNP - 01/06/2012 10:52 AM PDT Nephrology Follow Up Visit Date: 01/06/2012 PCP: Francois Pascal HPI: Alyson Lennon is a 81 y.o. female following up for CKD. 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 Corado, hyperlipidemia, gout, glossitis, and vitamin D deficiency. Today she denies complaints and reports she had a good summer without any illnesses. Patient Active Problem List Diagnoses Date Noted POA DM (diabetes mellitus) 12/27/2011 Priority: High Hyperlipidemia Priority: High HYPERTENSION NEC 05/25/2010 Priority: High OSTEOARTHRITIS, ANKLE, LEFT 01/21/2010 Priority: High Gout, unspecified 01/21/2010 Priority: Medium CAROTID STENOSIS AMAUROSIS FUGAX DEMYELINATING DISEASE, CENTRAL NERVOUS SYSTEM FRACTURE, ANKLE, LEFT VITAMIN D DEFICIENCY HTN CKD UNS W/CKD STAGE I THRU STAGE IV/UNS DIABETES MELLITUS, TYPE II, CONTROLLED, WITH COMPLICATIONS GLOSSITIS CAD CONGESTIVE HEART FAILURE DEEP VENOUS THROMBOPHLEBITIS CHRONIC KIDNEY DISEASE STAGE III (MODERATE) ARTHRITIS, CHRONIC 09/28/2011 AMI - ANTEROSEPTAL 199408/09/2011 VSD - 199408/09/2011 CLOSURE VENTRICULAR SEPTAL DEFECT - 199408/09/2011 FATIGUE 05/24/2011 VIRAL URI 05/24/2011 HYPERTRIGLYCERIDEMIA 12/24/2010 RENAL INSUFFICIENCY 01/21/2010 ECHO 03/04/09, LVEF 65% 03/04/2009 Outpatient Prescriptions Marked as Taking for the 01/06/12 encounter (Office Visit) with LAURO Kern Medication Sig Dispense Refill insulin glargine (LANTUS) 100 units/mL injection 110 units qhs 5 pen 3 methotrexate 2.5 mg tablet TAKE FIVE TABLETS BY MOUTH WEEKLY 20 tablet 1 ZYLOPRIM 100 MG tablet TAKE 1 TABLET BY MOUTH TWICE DAILY 180 each 3 cholecalciferol (VITAMIN D-3) 1,000 units capsule Take 1,000 Units by mouth 2 times daria ly. sitaGLIPtin (JANUVIA) 100 mg tablet Take 100 mg by mouth Daily. simvastatin (ZOCOR) 40 mg tablet Take 1/2 tablet by mouth every day colchicine 0.6 mg tablet 1-2 tablets by mouth as needed lisinopril (PRINIVIL,ZESTRIL) 40 MG tablet Take 40 mg by mouth Daily. folic acid 1 mg tablet Take 1 mg by mouth Daily. furosemide (LASIX) 40 mg tablet Take 40 mg by mouth Daily. metoprolol (TOPROL XL) 200 MG 24 hr tablet Take 200 mg by mouth Daily. amLODIPine (NORVASC) 5 mg tablet Take 5 mg by mouth Daily. Calcium Carbonate-Vitamin D 600-200 MG-UNIT TABS Take 2 tablets by mouth daily multivitamin (THERAGRAN) per tablet Take 1 by mouth daily aspirin (ASPIRIN EC) 81 MG EC tablet Take2 tablets by mouth Tuesday thru Tuesday and 32 5 mg on Tuesday aspirin 325 mg tablet Take 1 by mouth on Sundays niacin (NIASPAN) 500 mg CR tablet Take 500 mg by mouth Daily. insulin aspart (NOVOLOG) 100 units/mL injection 50 Units. Injection as directed. 17 uni ts a.m. 22 units before lunch, 27 units before before dinner Allergies Allergen Reactions Codeine Sulfate Uknown Darvon Nausea Only Estrogens Unknown ROS: Denies anorexia, fatigue, chest pain, dyspnea, orthopnea, edema, nausea, vomiting, dys uria, hematuria, urinary frequency. Physical Exam: Filed Vitals: 01/06/12 1032 BP: 132/66 Pulse: 58 Height: 1.588 m (5' 2.5") Weight: 78.654 kg (173 lb 6.4 oz) Constitutional: Appears well-developed and well-nourished. No acute distress. Mouth/Throat: Oropharynx is clear and moist. Eyes: Pupils are equal, round, and reactive to light. Neck: Neck supple. No JVD present. No thyromegaly present. Cardiovascular: Normal rate, regular rhythm and normal heart sounds. 2/6 systolic murmur. Lungs: Effort normal and breath sounds normal. No respiratory distress. No crackles or whee zes. Abdominal: Soft. Bowel sounds are normal. No distension or tenderness. Musculoskeletal: Trace peripheral edema, compression stocking in place. Neurological: Alert. Skin: Skin is warm. No rash. Psychiatric: Normal mood and affect. Labs reviewed with patient: Lab Results Component Value Date CREA 1.46* 12/20/2011 BUN 29* 12/20/2011 NA 135* 12/20/2011 K 4.3 12/20/2011 CL 98 12/20/2011 CO2 28 12/20/2011 Lab Results Component Value Date CALCIUM 9.5 12/20/2011 PHOS 4.0 12/20/2011 ALBUMIN Date Value Range Status 12/20/2011 3.7 3.2 - 5.0 gm/dL Final Estimated GFR Date Value Range Status 12/20/2011 35* >60 mL/min/A Final For -Americans, please multiply the result by 1.210 This is an estimated GFR and is based on a standard adult body mass (A=1.73m2) and serum creatinine Lab Results Component Value Date WBC 9.4 12/20/2011 HGB 14.0 12/20/2011 HCT 41.0 12/20/2011 MCV 109.4* 12/20/2011 Recent Results (from the past 24 hour(s)) POCT URINALYSIS Component Value Range POC COLOR UA Yellow POC CLARITY UA Clear POC GLUCOSE UA Negative POC BILIRUBIN UA Negative POC KETONES UA Trace (*) Negative POC SPECIFIC GRAVITY UA 1.015 POC BLOOD UA Negative POC PH UA 5.5 POC PROTEIN UA Negative POC UROBILINOGEN UA 0.2 mg/dL POC NITRITE UA Negative POC LEUKOCYTE ESTERASE UA Negative RED SUB UA Negative ICTOTEST Negative REMARK Assessment/Plan: Problem # 1: CHRONIC KIDNEY DISEASE STAGE III (MODERATE) (ICD-585.3) Contributors likely hypertension and diabetes mellitus. No proteinuria or hematuria. Serum creatinine is stable at baseline. Renal ultrasound shows normal sized kidneys without hydronephrosis, with increased echogeni city. Reassured Alyson that for now kidney disease appears to be quite stable. Educated about goal o f preserving kidney function with good glycemic and blood pressure control. Also avoidance o f nephrotoxins such as NSAIDs and contrast imaging. She is on WILLA inhibitor therapy. Problem # 2: HTN CKD UNS W/CKD STAGE I THRU STAGE IV/UNS (ICD-403.90) Blood pressure appears to be quite well controlled on current regimen. No change to medicat ions Problem # 3: DIABETES MELLITUS, TYPE II, CONTROLLED, WITH COMPLICATIONS (ICD-250.90) Neuropathy, retinopathy and likely nephropathy. Not well controlled currently, though alondra nt reports recent increase in insulin dose. Discussed diabetes and renal complications with patient. Problem # 4: VITAMIN D DEFICIENCY (ICD-268.9) At goal on supplementation. Follow up in 6 months, sooner if needed. Labs prior including renal panel and iPTH. Patient verbalized agreement and understanding of above plan. CC: Francois Pascal . documented i n this encounter Plan of [...] | | | | | | [place] [address] | | | | | | [phone] | | | | | | | | +--------+---------+ + + + documented as of this encounter Procedures + +--------+ + + + | Procedure Name | Priori | Date/Time | Associated Diagnosis | Comments | | | ty | | | | + +--------+ + + + | POCT URINALYSIS, | Routin | 01/06/2012 | CHRONIC KIDNEY | Results for this | | AUTO WITH CONF | e | 10:27 AM | DISEASE STAGE III | procedure are in the | | | | PDT | (MODERATE) | results section. | + +--------+ + + + documented in this encounter Results POCT Urinalysis Dipstick Automated (01/06/2012 10:27 AM PDT) + + + + + [...] + + + + | Ketones, | Trace (A) | Negative | | | | UA, POC | | | | | + + + + + + | Specific | 1.015 | | | | | [place], | | | | | | UA, POC | | | | | + + + + + + | Blood, UA, | Negative | | | | | POC | | | | | + + + + + + | pH, UA, POC | 5.5 | | | | + + + + + + | Protein, | Negative | | | | | UA, POC | | | | | + + + + + + | Urobilinoge | 0.2 mg/dL | | | | | n, UA, [...] + + + | Reducing | | Negative | | | | Substances, | | [...]
--- OUTSIDE RECORDS SUMMARY | ~2019-09-12 | XMS | Encounter Summary ---
Demographics + + + | Address | [address] | | | [place] [address] | + + + | Home Phone [...] | [facility] | | | and Clarkeana | + + + | Organization | [facility] [...] | | | | | [place] [address] | | + + + + + | Valentín Saleh | ECON | [address] | | | | | [place] [address] | | + + + + + | Roberto Carlos Lennon | LEVI | Unknown | | + + + + + Care Team Providers + +------+ + | Care Greenhouse Superintendent Name | Role | Phone | + +------+ + | Francois Pascal MD | PCP | | + +------+ + Encounter Details +--------+ + + + + | Date | Type | Department | Care Team | Description | +--------+ + + + + | 06/08/ | Hospital | [facility] | [place], | | | 2011 | Encounter | MED CTR XRAY [address] | Kemar Wilson HAND DRY CLEANER [address] | | | | | [place] | [facility] | | | | | [place] [address] | [address] [place] | | | | | [phone] | [address] | | | | | [...] | | | | | | [place] [address] | | | | | | [phone] | | | | | | | [...] Performed At | + + + | [facility] Diagnostic Imaging Department | [facility] | | [address] [facility] | [facility] | | RENAL ULTRASOUND, 06/09/2011 [...] Transcribed | | | Date/Time: 06/09/2011 15:32 Senior Logistics Manager: | | | <Electronically Signed by Benedict Vigil MD> 06/09/11 2241 | | + + + + + | Procedure Note | + + | Al, Rad Conversion - 04/13/2013 5:03 PM [facility] | | Diagnostic Imaging Department [address] [place] [address] | | RENAL ULTRASOUND, 06/09/2011 CLINICAL HISTORY: [...] 15:00 | |Transcribed Date/Time: 06/09/2011 15:32 | |Senior Logistics Manager: | |<Electronically Signed by Benedict Vigil MD> [...]
--- OUTSIDE RECORDS SUMMARY | ~2019-09-12 | XMS | Encounter Summary ---
Demographics + + + | Address | [address] | | | [place] [address] | + + + | Home Phone [...] Author | [facility] | | | and [place] | + + + | Organization | [facility] [...] | | | | | [place] [address] | | + + + + + | Valentín Saleh | ECON | [address] | | | | | [place] [address] | | + + + + + | Roberto Carlos Lennon | LEVI | [place] | | + + + + + Care Team Providers + +------+ + | Care Director Of Automation Name | Role | Phone | + +------+ + PCP | Unavailable | + +------+ + Encounter Details +--------+ + + + + | Date | Type | Department | Care Team | Description | +--------+ + + + + | 02/03/ | Hospital | [facility] | | | | 2006 | Encounter | MED CTR LABORATORY | | | | | | [address] | | | | | | [place] | | | | | | [address] | | | | | | [phone] | | | +--------+ + + + [...] | | | | | | [place] [address] | | | | | | [phone] | | | | | | | | +--------+---------+ + + + documented as of this encounter Visit Diagnoses Not on filedocumented in this encounter"
--- OUTSIDE RECORDS SUMMARY | ~2019-09-12 | XMS | Encounter Summary ---
Demographics + + + | Address | [address] | | | [place] [address] | + + + | Home Phone [...] | Author | [facility] | | | and Clarkeana | + + + | Organization | [facility] [...] | | | | | [place] [address] | | + + + + + | Vlaentín Saleh | ECON | [phone] | | | | | [place] [address] | | + + + + + | Roberto Carlos Lennon | LEVI | Unknown | | + + + + + Care Team Providers + +------+ + | Care Companion Name | Role | Phone | + [...] + | 11/08/ | Telephone | [facility] | Francois Pascal, | Vaginitis (patient | | 2014 | | MEDICINE [address] | [address] | reports symptoms of | | | | AVE [place], | [address] [place], | vaginitis) | | | | [place] [address] | [place] [address] | | | | | [phone] | [phone] | | | | | | | [...] | | | | | | [place] [address] | | | | | | [phone] | | | | | | | | +--------+---------+ + + + documented as of this encounter Visit Diagnoses Not on filedocumented in this encounter"
--- OUTSIDE RECORDS SUMMARY | ~2019-09-12 | XMS | Encounter Summary ---
Demographics + + + | Address | [address] | | | [place] [address] | + + + | Home Phone [...] Author | [facility] | | | and Clarkeana | + + + | Organization | [facility] [...] | | | | | [place] [address] | | + + + + + | Valentín Saleh | ECON | [phone] | | | | | [place] [address] | | + + + + + | Roberto Carlos Lennon | LEVI | Unknown | | + + + + + Care Team Providers + +------+ + | Care Metallurgical Engineer Name | Role | Phone | [...] | 12/22/ | Refill | [facility] | Francois Pascal, | Medication Refill | | 2012 | | MEDICINE [place] | [address] | | | | | [address] | [address] [place], | | | | | [place] | [place] [address] | | | | | [address] | [phone] | | | | | [phone] | | | +--------+--------+ + + + [...] | | | | | | [place] [address] | | | | | | [phone] | | | | | | | | +--------+---------+ + + + documented as of this encounter Visit Diagnoses Not on filedocumented in this encounter"
--- OUTSIDE RECORDS SUMMARY | ~2019-09-12 | XMS | Encounter Summary ---
Demographics + + + | Address | [address] | | | [place] [address] | + + + | Home Phone [...] + | Author | [facility] | | | and Clarkeana | + + + | Organization | [facility] | [...] [address] | | | | | [place] [address] | | + + + + + | Valentín Saleh | ECON | [phone] | | | | | [place] [address] | | + + + + + | Roberto Carlos Lennon | LEVI | Unknown | | + + + + + Care Team Providers + +------+ + | Care Coat Room Attendant Name | Role | Phone | [...] + + | 09/09/ | Office | [facility] | Francois Pascal, | Dementia due to | | 2016 | Visit | MEDICINE [address] [place] [address] | [address] | Alzheimer's disease | | | | AVE [place], | [address] [place], | | | | | [place] [address] | [place] [address] | | | | | [phone] | [phone] | | | | | | | [...] she is getting up for therapy at [facility]. Review of Systems Objective: Physical Exam Heent, [...] | | | | | 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
--- OUTSIDE RECORDS SUMMARY | ~2019-09-12 | XMS | Encounter Summary ---
Demographics + + + | Address | [address] | | | [place] [address] | + + + | Home Phone [...] | Author | [facility] | | | and Clarkeana | + + + | Organization | [facility] | [...] | | | | | [place] [address] | | + + + + + | Valentín Saleh | ECON | [id number] | | | | | [place] [address] | | + + + + + | Roberto Carlos Lennon | LEVI | Unknown | | + + + + + Care Team Providers + +------+ + | Care Laminator Preforms Name | Role | Phone | + [...] | instability | [address] | [place] | | | | n | [address] | [address] | [place], | | | | | (ICD-10-CM) | [place] | [place] [address] | | | | | - [address] | [place] | Phone: | | | | | (ICD-9-CM) - | [address] | [phone] | | | | | Gait | Phone: | Fax: | | | | | instability | [phone] | [phone] | | | | | Procedures | Fax: | | | | | | pt eval | [phone] | | +--------+ + + + + + Encounter Details +--------+---------+ + + + | Date | Type | Department | Care Team | Description | +--------+---------+ + + + | 01/13/ | Office | [facility] | Francois Pascal, | Impaired functional | | 2015 | Visit | MED CTR THERAPY PT | MD [address] | mobility, balance, | | | | OP [address] | [address] [place], | gait, and endurance | | | | [place] | [place] [address] | (Primary Dx); | | | | [address] | [phone] | Posture imbalance; | | | | [phone] | | Left ankle pain | | | | | Kely Quinn, PT | | | | | | [address] | | | | | | [place] | | | | | | [address] | | | | | | | [...] might be different from t he original. [facility] CTR THERAPY PT OP [address] [place] [address] Physical Therapy Daily Treatment Note Date: 01/13/2015 Patient Information Patient Name: Alyson Lennon Date of : 1930 Age: 84 y.o. Encounter Diagnoses Code Name Primary? Z74.09 Impaired functional mobility, balance, gait, and endurance Yes R29.3 Posture imbalance M25.572 Left ankle pain Date of Onset: 10/24/14 Referring Provider: Francois Pascal MD Rehab Precautions Office Visit from 12/24/2014 in [facility] CTR THERAPY PT OP Rehab Precautions [...] | | | | | | [place] [address] | | | | | | [phone] | | | | | | | [...]
--- OUTSIDE RECORDS SUMMARY | ~2019-09-12 | XMS | Encounter Summary ---
Demographics + + + | Address | [address] | | | [place] [address] | + + + | Home Phone [...] Author | [facility] | | | and Clarkeana | + + + | Organization | [facility] | [...] | | | | | [place] [address] | | + + + + + | Valentín Saleh | ECON | [id number] | | | | | [place] [address] | | + + + + + | Roberto Carlos Lennon | LEVI | Unknown | | + + + + + Care Team Providers + +------+ + | Care Stock Sheets Cleaner Inspector Name | Role | Phone | + +------+ + | Francois Pascal MD | PCP | | + +------+ + Encounter Details +--------+---------+ + + + | Date | Type | Department | Care Team | Description | +--------+---------+ + + + | 10/31/ | Office | [facility] | Francois Pascal, | Diabetes (HCC) | | 2014 | Visit | MED CTR DIABETES | [address] | (Primary Dx) | | | | EDUCATION [address] | [address] [place], | | | | | [place], | [place] [address] | | | | | [place] [address] | [phone] | | | | | [phone] | | | | | | | [...] | Visit | | MD [address] [place] | | | | | | [place], | | | | | | [place] [address] | | | | | | [phone] | | | | | | | | +--------+---------+ + + + documented as of this encounter Visit Diagnoses + + | Diagnosis | + + | Diabetes (HCC) - Primary | + + documented in this encounter"
--- OUTSIDE RECORDS SUMMARY | ~2019-09-12 | XMS | Encounter Summary ---
Demographics + + + | Address | [address] | | | [place] [address] | + + + | Home Phone [...] Author | [facility] | | | and Clarkeana | + + + | Organization | [facility] | | [...] | | | | | [place] [address] | | + + + + + | Valentín Saleh | ECON | [id number] | | | | | [place] [address] | | + + + + + | Roberto Carlos Lennon | LEVI | Unknown | | + + + + + Care Team Providers + +------+ + | Care Tub Attendant Name | Role | Phone | + +------+ + | Francois Pascal MD | PCP | | + +------+ + Encounter Details +--------+ + + + + | Date | Type | Department | Care Team | Description | +--------+ + + + + | 12/04/ | Hospital | [facility] | Fackenthall, | CHRONIC KIDNEY | | 2014 | Encounter | MED CTR LABORATORY | [address] | DISEASE STAGE III | | | | [address] [place] | [address] [facility] | (MODERATE); Vitamin | | | | [place], [place] | [address] [place], [place] | D deficiency | | | | [address] | [address] | | | | | [phone] | | | +--------+ + + + [...] | | | | | | [place] [address] | | | | | | [phone] | | | | | | | [...] + | [facility] | [address] | [place] | [phone] | | [facility] | | [address] | | | - LABORATORY | | | | + + + + + | [facility] | [address] | [place], [place] | | | [facility] | | [address] | | | [...] | | 25 Hydroxy | | | [facility] | | | | | | MEDICAL [...] + | [facility] | [address] | [place], [place] | [phone] | | [facility] | | [address] | | | - LABORATORY | | | | + + + + + | [facility] | [address] | [place], [place] | | | [facility] | | [address] | | | [...] + | [facility] | [address] | [place] | [phone] | | [facility] | | [address] | | | - LABORATORY | | | | + + + + + | [facility] | [address] | [place] | | | [facility] | | [address] | | | - LABORATORY | [...] | mL/min/1.73m2 | [facility] | | | [place] | RATE,ESTIMATED | | MEDICAL | | | | mL/min/1.12l1Gnjr than | | CENTER - | | [...] [address] | [place] | [phone] | | [facility] | | [address] | | | - LABORATORY | | | | + + + + + | [facility] | [address] | [place] | | | [facility] | | [address] [place] [address] | | | - LABORATORY | | [...]
--- OUTSIDE RECORDS SUMMARY | ~2019-09-12 | XMS | Encounter Summary ---
Demographics + + + | Address | [address] | | | [place] [address] | + + + | Home Phone [...] + + | Author | [facility] | | | and Clarkeana | + + + | Organization | [facility] | | [...] | | | | | [place] [address] | | + + + + + | Valentín Saleh | ECON | [phone] | | | | | [place] [address] | | + + + + + | Roberto Carlos Lennon | LEVI | [place] | | + + + + + Care Team Providers + +------+ + | Care Powder And Primer Canning Leader Name | Role | Phone | + +------+ + PCP | Unavailable | + +------+ + Encounter Details +--------+ + + + + | Date | Type | Department | Care Team | Description | +--------+ + + + + | 04/06/ | Hospital | [facility] | Roberto Carlos Tello, | | | 1993 | Encounter | MED CTR XRAY [address] | [address] [facility] | | | | | [address] | [place] | | | | | [place] [address] | [address] | | | | | [phone] | | | +--------+ + + + [...] | | | | | | [place] [address] | | | | | | [phone] | | | | | | | | +--------+---------+ + + + documented as of this encounter Visit Diagnoses Not on filedocumented in this encounter"
--- OUTSIDE RECORDS SUMMARY | ~2019-09-12 | XMS | Encounter Summary ---
[...] | Author | [facility] | | | and Clarkeana | + + + | Organization | [facility] | | [...] | | | | | [place] [address] | | + + + + + | Valentín Saleh | ECON | [phone] | | | | | [place] [address] | | + + + + + | Roberto Carlos Lennon | LEVI | [place] | | + + + + + Care Team Providers + +------+ + | Care Guest Relations Associate Name | Role | Phone | + +------+ + PCP | Unavailable | + +------+ + Encounter Details +--------+ + + + + | Date | Type | Department | Care Team | Description | +--------+ + + + + | 10/02/ | Hospital | [facility] | | | | 2001 | Encounter | MED CTR XRAY [address] | | | | | | [place] | | | | | | [place] [address] | | | | | | [phone] | | | +--------+ + + + [...] | | | | | | [place] [address] | | | | | | [phone] | | | | | | | | +--------+---------+ + + + documented as of this encounter Visit Diagnoses Not on filedocumented in this encounter"
--- OUTSIDE RECORDS SUMMARY | ~2019-09-12 | XMS | Encounter Summary ---
Demographics + + + | Address | [address] | | | [place] [address] | + + + | Home Phone [...] + | Author | [facility] | | | and Clarkeana | + + + | Organization | [facility] | | | and [...] | | | | | [place] [address] | | + + + + + | Valentín Saleh | ECON | [phone] | | | | | [place] [address] | | + + + + + | Roberto Carlos Lennon | LEVI | Unknown | | + + + + + Care Team Providers + +------+ + | Care Oil Spraying Machine Operator Name | Role | Phone [...] | 08/09/ | Refill | [facility] [place] [facility] | Francois Pascal, | Medication Refill | | 2013 | | MEDICINE [place] | [address] | | | | | [address] | [address] [place], | | | | | [place] | [place] [address] | | | | | [address] | [phone] | | | | | [phone] | | | +--------+--------+ + + + [...] | | | | | | [place] [id number] | | | | | | [phone] | | | | | | | | +--------+---------+ + + + documented as of this encounter Visit Diagnoses Not on filedocumented in this encounter"
--- OUTSIDE RECORDS SUMMARY | ~2019-09-12 | XMS | Encounter Summary ---
Demographics + + + | Address | [address] | | | [place] [address] | + + + | Home Phone [...] Author | [facility] | | | and Clarkeana | + + + | Organization | [facility] [...] | | | | | [place] [address] | | + + + + + | Valentín Saleh | ECON | [address] | | | | | [place] [address] | | + + + + + | Roberto Carlos Lennon | LEVI | [place] | | + + + + + Care Team Providers + +------+ + | Care Household Appliance Installer Name | Role | Phone | + +------+ + PCP | Unavailable | + +------+ + Encounter Details +--------+ + + + + | Date | Type | Department | Care Team | Description | +--------+ + + + + | 02/24/ | Hospital | [facility] | Francois Pascal, | | | 2008 | Encounter | MED CTR LABORATORY | [address] | | | | | [address] [place] | [address] [place], | | | | | [place] | [place] [address] | | | | | [address] | [phone] | | | | | [phone] | | | +--------+ + + + [...] | | | | | | [place] [address] | | | | | | [phone] | | | | | | | | +--------+---------+ + + + documented as of this encounter Visit Diagnoses Not on filedocumented in this encounter"
--- OUTSIDE RECORDS SUMMARY | ~2019-09-12 | XMS | Encounter Summary ---
Demographics + + + | Address | [address] | | | [place] [address] | + + + | Home Phone [...] Author | [facility] | | | and Clarkeana | + + + | Organization | [facility] | | [...] | | | | | [place] [address] | | + + + + + | Valentín Saleh | ECON | [phone] | | | | | [place] [address] | | + + + + + | Roberto Carlos Lennon | LEVI | Unknown | | + + + + + Care Team Providers + +------+ + | Care Screwhead Polisher Name | Role | Phone | + +------+ + | Francois Pascal MD | PCP | | + +------+ + Encounter Details +--------+ + + + + | Date | Type | Department | Care Team | Description | +--------+ + + + + | 05/27/ | Hospital | [facility] | Francois Pascal, | Essential | | 2017 | Encounter | MED CTR LABORATORY | [address] | hypertension with | | | | [address] [place] | [address] [place], | goal blood pressure | | | | [place], [place] | [place] [address] | less than 130/80; | | | | [address] | [phone] | Diabetes mellitus | | | | [phone] | | due to underlying | | | | | | condition with | | | | | | hyperglycemia, with | | | | | | long-term current | | | | | | use of insulin | | | | | | ([facility]); Coronary | | | | | | artery disease | | | | | | involving [place] | | | | | | coronary artery of | | | | | | [place] heart without | | | | | [...] | | 0 | | | | Cqpjkfz-Dqjlylyos-Zb | mouth Daily. | | | | 8 | | julissa D (CALCIUM 500 | | | | [...] 12:10 PM PDT Quick Note: Ok for ma [...] | 2019 | Visit | | [address] [place] | | | | | | [place], | | | | | | [place] [address] | | | | | | [phone] | | | | | | | [...] the | | | | PDT | [place] coronary | results section. | | | | | artery of [place] | | | | | | heart [...] | | Direct | | mg/dl | [facility] | | | | [...] [address] | [place] | [phone] | | [facility] | | [address] | | | - LABORATORY | | [...] HDL | 28 - 83 mg/dL | [facility] | | | | Reference Range as of | | [facility] | | | | November 14, [...] LDL, | 59 | <=130 mg/dL | [facility] | | [...] [address] | [place] | [phone] | | [facility] | | [address] | | | - LABORATORY | | [...] ST. | [address] | [place], [place] | [phone] | | [facility] | | [address] | | | - LABORATORY | | [...] [address] | [place] | [phone] | | [facility] | | [address] | | | - LABORATORY | | [...] 14 | 7 - 18 mg/dL | [facility] | | | | | | [facility] | | | | | | MEDICAL | | | | | | CENTER - | | | | | | LABORATORY | | + + + + + + | Creatinine | 1.05 | 0.60 - 1.30 | [facility] | | | | | mg/dL | [facility] | | | | | | MEDICAL | | | | | | CENTER - | | | | | | LABORATORY | | + + + + + + | eGFR if not | 50 (L)Comment: | >=60 | [facility] | | | | GLOMERULAR FILTRATION | mL/min/1.73m2 | [facility] | | | [place] | RATE,ESTIMATED | | MEDICAL | | | | mL/min/1.59w2Albh than | | CENTER - | | [...] ST. | [address] | [place], [place] | [phone] | | [facility] | | [address] | | | - LABORATORY | | [...] + + | Coronary artery disease involving [place] coronary artery of [place] heart without | | angina pectoris | + + documented in this encounter"
--- OUTSIDE RECORDS SUMMARY | ~2019-09-12 | XMS | Encounter Summary ---
Demographics + + + | Address | [address] | | | [place] [address] | + + + | Home Phone [...] | Author | [facility] | | | and Clarkeana | + + + | Organization | [facility] | | | [...] | | | | | [place] [address] | | + + + + + | Valentín Saleh | ECON | [phone] | | | | | [place] [address] | | + + + + + | Roberto Carlos Lennon | LEVI | [place] | | + + + + + Care Team Providers + +------+ + | Care Manager Internship Name | Role | Phone | + +------+ + PCP | Unavailable | + +------+ + Encounter Details +--------+ + + + + | Date | Type | Department | Care Team | Description | +--------+ + + + + | 05/19/ | Hospital | [facility] | Glenn Miramontes | | | 2010 | Encounter | MED CTR XRAY [address] | | | | | [place] | [place], [place] | | | | | [place] [address] | [address] | | | | | [phone] | | | +--------+ + + + [...] | | | | | | [place] [address] | | | | | | [phone] | | | | | | | | +--------+---------+ + + + documented as of this encounter Procedures + +--------+ + + + | Procedure Name | Priori | Date/Time | Associated Diagnosis | Comments | | | ty | | | | + +--------+ + + + | FL GUIDED NEEDLE | | 05/19/2010 | | Results for this | | PLACEMENT | | 2:24 PM | | procedure are in the | | | | PDT | | results section. | + +--------+ + + + documented in this encounter Results FL Guided Needle Placement (05/19/2010 2:24 PM PDT) + + | Specimen | + + | | + + + + + | Narrative | Performed At | + + + | [facility] Diagnostic Imaging Department | [facility] | | [address], [facility] | [facility] | | PROCEDURE: LEFT SUBTALAR JOINT | DIAG IMG | | INJECTION ICD-9 code 719.47, ankle pain. Ms. Alyson Lennon | | | presents to the fluoroscopy suite for a fluoroscopically guided left | | | subtalar joint injection as part of conservative management for | | | ankle pain with arthropathy. After informed consent was obtained, | | | the patient lay in the lateral decubitus position. The area was | | | identified und er fluoroscopic guidance. The area was prepped and | | | draped in a sterile fashion. A 25-gauge 1.5-inch needle was | | | inserted into this region and approximately 3 mL of buffered 1% | | | lidocaine was infused and the needle was advanced into the | | | subtalar joint under fluoroscopic guidance. Confirmation into the | | | subtalar joint was obtained with infusion of approximately 1 mL of | | | Omnipaque contrast, which showed flow within the joint space, then a | | | combination of 2 mL of 1% lidocaine and 1 mL of 40 mg/mL Kenalog | | | was infused. The patient tolerated the procedure without | | | complications. Pre- and postprocedure blood pressures were stable. | | | The patient was given verbal as well as written followup | | | instructions. The patient reported no significant change in pain | | | symptoms postprocedure. Prior to the start of the procedure the | | | following were performed or verified including correct patien t | | | identity, correct site and side marked and visible, agreement on the | | | procedure to be done, correct patient positioning and accurate | | | procedure consent form, and any safety precautions based on clinical | | | history and/or medication use have been addressed. I | | | personally performed the procedure above. Dictated Date/Time: | | | 05/19/2010 17:41 Transcribed Date/Time: 05/20/2010 00:40 | | | Anesthesiology Physician: <Electronically Signed by Glenn Richards | | | MD Kulwinder> 06/04/101922 | | + + + + + | Procedure Note | + + | Al, Taras Conversion - 04/13/2013 2:27 PM [facility] | | Diagnostic Imaging Department [address] [place] [address] | | PROCEDURE: LEFT SUBTALAR JOINT INJECTION ICD-9 code | | 719.47, ankle pain. Ms. Alyson Lennon presents to the fluoroscopy suite for a | | fluoroscopically guided left subtalar joint injection as part of conservative management | | for ankle pain with arthropathy. After informed consent was obtained, the patient lay | | in the lateral decubitus position. The area was identified under fluoroscopic guidance. | | The area was prepped and draped in a sterile fashion. A 25-gauge 1.5-inch needle was | | inserted into this region and approximately 3 mL of buffered 1% lidocaine was infused | | and the needle was advanced into the subtalar joint under fluoroscopic guidance. | | Confirmation into the subtalar joint was obtained with infusion of approximately 1 mL of | | Omnipaque contrast, which showed flow within the joint space, then a combination of 2 | | mL of 1% lidocaine and 1 mL of 40 mg/mL Kenalog was infused. The patient tolerated the | | procedure without complications. Pre- and postprocedure blood pressures were stable. | | The patient was given verbal as well as written followup instructions. The patient | | reported no significant change in pain symptoms postprocedure. Prior to the start of | | the procedure the following were performed or verified including correct patient | | identity, correct site and side marked and visible, agreement on the procedure to be | | done, correct patient positioning and accurate procedure consent form, and any safety | | precautions based on clinical history and/or medication use have been addressed. I | | personally performed the procedure above. Dictated Date/Time: 05/19/2010 17:41 | | Transcribed Date/Time: 05/20/2010 00:40 Anesthesiology Physician: <Electronically Signed | | by Glenn Miramontes MD> 06/04/101922 | | | |Prior to the start of the procedure the following were performed or verified including noel ect patien | |t | |identity, correct site and side marked and visible, agreement on the procedure to be done, correct | |patient positioning and accurate procedure consent form, and any safety precautions based o n | |clinical history and/or medication use have been addressed. | | | |I personally performed the procedure above. | | | |Dictated Date/Time: 05/19/2010 17:41 | |Transcribed Date/Time: 05/20/2010 00:40 | |Anesthesiology Physician: | |<Electronically Signed by Glenn Miramontes MD> 06/04/101922 | + + + +---------+ + + | Performing | Address | City/State/Zipcode | Phone Number | | Organization | | | | + +---------+ + + | [place] | | | | | [facility] | | | | + +---------+ + + documented in this encounter Visit Diagnoses Not on filedocumented in this encounter"
--- OUTSIDE RECORDS SUMMARY | ~2019-09-12 | XMS | Encounter Summary ---
Demographics + + + | Address | [address] | | | [place] [address] | + + + | Home Phone [...] Author | [facility] | | | and [place] | + + + | Organization | [facility] | [...] | | | | | [place] [address] | | + + + + + | Valentín Saleh | ECON | [phone] | | | | | [place] [address] | | + + + + + | Roberto Carlos Lennon | LEVI | [place] | | + + + + + Care Team Providers + +------+ + | Care Back Closer Name | Role | Phone | + +------+ + PCP | Unavailable | + +------+ + Encounter Details +--------+ + + + + | Date | Type | Department | Care Team | Description | +--------+ + + + + | 05/22/ | Hospital | [facility] | | | | 2004 | Encounter | MED CTR LABORATORY | | | | | | [address] | | | | | | [place] | | | | | | [address] | | | | | | [phone] | | | +--------+ + + + [...] | | | | | | [place] [address] | | | | | | [phone] | | | | | | | | +--------+---------+ + + + documented as of this encounter Visit Diagnoses Not on filedocumented in this encounter"
--- OUTSIDE RECORDS SUMMARY | ~2019-09-12 | XMS | Encounter Summary ---
Demographics + + + | Address | [address] | | | [place] [address] | + + + | Home Phone [...] Author | [facility] | | | and [place] | + + + | Organization | [facility] | [...] | | | | | [place] [address] | | + + + + + | Valentín Saleh | ECON | [id number] | | | | | [place] [address] | | + + + + + | Roberto Carlos Lennon | LEVI | [place] | | + + + + + Care Team Providers + +------+ + | Care Historical Site Guide Name | Role | Phone | + +------+ + PCP | Unavailable | + +------+ + Encounter Details +--------+ + + + + | Date | Type | Department | Care Team | Description | +--------+ + + + + | 02/27/ | Hospital | [facility] | Francois Pascal, | | | 2007 | Encounter | MED CTR XRAY [address] | [address] | | | | | [place] | [address] [place], | | | | | [place] [address] | [place] [address] | | | | | [phone] | [phone] | | | | | | | [...] | | | | | | [place] [address] | | | | | | [phone] | | | | | | | | +--------+---------+ + + + documented as of this encounter Visit Diagnoses Not on filedocumented in this encounter"
--- OUTSIDE RECORDS SUMMARY | ~2019-09-12 | XMS | Encounter Summary ---
Demographics + + + | Address | [address] | | | [place] [address] | + + + | Home Phone [...] | [facility] | | | and [place] | + + + | Organization | [facility] | [...] | | | | | [place] [address] | | + + + + + | Valentín Saleh | ECON | [address] | | | | | [place] [address] | | + + + + + | Roberto Carlos Lennon | LEVI | Unknown | | + + + + + Care Team Providers + +------+ + | Care Turf Manager Name | Role | Phone | [...] Description | +--------+--------+ + + + | 08/12/ | Refill | [facility] [place] | Stephenie Paul, | Medication Refill | | 2016 | | CARDIOLOGY [address] | MD [address] [place] | | | | | [place], | [place], | | | | | [place] [address] | [place] [address] | | | | | [phone] | [phone] | | | | | | | [...] | | | | | | [place] [address] | | | | | | [phone] | | | | | | | | +--------+---------+ + + + documented as of this encounter Visit Diagnoses Not on filedocumented in this encounter"
--- OUTSIDE RECORDS SUMMARY | ~2019-09-12 | XMS | Encounter Summary ---
Demographics + + + | Address | [address] | | | [place] [address] | + + + | Home Phone [...] | Author | [facility] | | | and [place] | + + + | Organization | [facility] | [...] | | | | | [place] [address] | | + + + + + | Valentín Saleh | ECON | [address] | | | | | [place] [address] | | + + + + + | Roberto Carlos Lennon | LEVI | Unknown | | + + + + + Care Team Providers + +------+ + | Care Online Affiliate Marketing Manager Name | Role | Phone | [...] [address] | [address] [facility] | (MODERATE) (Primary | | | | [place], [place] | [address] [place], [place] | Dx) | | | | [address] | [address] | | | | | [phone] | | | +--------+ + + + [...] Humphries RN - 12/29/2015 10:20 AM PDT01/22/16 [facility] documented in this encounter Plan of Treatment +--------+---------+ + + + | Date | Type | Specialty | Care Team | Description | +--------+---------+ + + + | 12/06/ | Office | Cardiology | Stephenie Paul, | | | 2019 | Visit | | MD [address] | | | | | | [place], | | | | | | [place] [address] | | | | | | [phone] | | | | | | | [...] [address] | [place] | [phone] | | [facility] | | [address] | | | - LABORATORY | | | | + + + + + Parathyroid Hormone, Intact (01/20/2016 10:01 AM PST) + +---------+ + + + | Component | Value | Ref Range | Performed | Pathologist | | | | | At | Signature | + +---------+ + + + | PTH Intact | 111 (H) | 12 - 88 pg/mL | [facility] [...] [address] | [place] | [phone] | | [facility] | | [address] | | | - LABORATORY | | [...] mL/min/1.73m2 | [facility] | | | [place] | | | MEDICAL | | | [...] 4.2 | 2.5 - 4.6 mg/dL | [facility] [...] [address] | [place] | [phone] | | [facility] | | [address] | | | - LABORATORY | | | | + + + + + documented in this encounter Visit Diagnoses + + | Diagnosis | + + | CHRONIC KIDNEY DISEASE STAGE III (MODERATE) - Primary Chronic kidney disease, Stage | | III (moderate) | + + documented in this encounter"
--- OUTSIDE RECORDS SUMMARY | ~2019-09-12 | XMS | Encounter Summary ---
Demographics + + + | Address | [address] | | | [place] [address] | + + + | Home Phone [...] + | Author | [facility] | | | and [place] | + + + | Organization | [facility] | | [...] | | | | | [place] [address] | | + + + + + | Valentín Saleh | ECON | [phone] | | | | | [place] [address] | | + + + + + | Roberto Carlos Lennon | LEVI | Unknown | | + + + + + Care Team Providers + +------+ + | Care Talent Sourcer Name | Role | Phone | + +------+ + | Francois Pascal MD | PCP | | + +------+ + Reason for Visit +---------+--------+ + | Reason | Onset | Comments | | | Date | | +---------+--------+ + | Dependency Director | 08/11/ | | | | 2018 | | +---------+--------+ + Encounter Details +--------+ + + + + | Date | Type | Department | Care Team | Description | +--------+ + + + + | 08/11/ | Telephone | [facility] | Diane Foster FNP | Dependency Director | | 2017 | | MEDICINE HECTOR | [address] | | | | | [address] | [place] | | | | | [place] | [address] | | | | | [address] | | | | | | [phone] | | | +--------+ + + + [...] Received phone c all from nurse at [facility] patient fell without injury at 7 [...] | | | | | | [place] [address] | | | | | | [phone] | | | | | | | | +--------+---------+ + + + documented as of this encounter Visit Diagnoses Not on filedocumented in this encounter"
--- OUTSIDE RECORDS SUMMARY | ~2019-09-12 | XMS | Encounter Summary ---
Demographics + + + | Address | [address] | | | [place] [address] | + + + | Home Phone [...] | [facility] | | | and [place]ana | + + + | Organization | [facility] | | | and [...] | | | | | [place] [address] | | + + + + + | Valentín Saleh | ECON | [phone] | | | | | [place] [address] | | + + + + + | Roberto Carlos Lennon | LEVI | Unknown | | + + + + + Care Team Providers + +------+ + | Care Duplication Specialist Name | Role | Phone | [...] + | 09/04/ | Refill | [facility] | Francois Pascal, | Medication Refill | | 2012 | | [facility] | [address] | | | | | [address] | [address] [place], | | | | | [place] | [place] [address] | | | | | [address] | [phone] | | | | | [phone] | | | +--------+--------+ + + + [...] | | | | | | [place] [address] | | | | | | [phone] | | | | | | | | +--------+---------+ + + + documented as of this encounter Visit Diagnoses Not on filedocumented in this encounter"
--- OUTSIDE RECORDS SUMMARY | ~2019-09-12 | XMS | Encounter Summary ---
Demographics + + + | Address | [address] | | | [place] [address] | + + + | Home Phone [...] | [facility] | | | and [place] | + + + | Organization | [facility] [...] | | | | | [place] [address] | | + + + + + | Valentín Saleh | ECON | [phone] | | | | | [place] [address] | | + + + + + | Roberto Carlos Lennon | LEVI | Unknown | | + + + + + Care Team Providers + +------+ + | Care Gasoline Tractor Operator Name | Role | Phone | [...] | 07/19/ | Refill | [facility] [place] [facility] | Francois Pascal, | Medication Refill | | 2014 | | MEDICINE [place] | [address] | | | | | [address] | [address] [place], | | | | | [place] | [place] [address] | | | | | [address] | [phone] | | | | | [phone] | | | +--------+--------+ + + + [...] | | | | | | [place] [address] | | | | | | [phone] | | | | | | | [...]
--- OUTSIDE RECORDS SUMMARY | ~2019-09-12 | XMS | Encounter Summary ---
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 [address] | | | | | stage 3 | [place] | [address] | | | | | (moderate) | [place] | [address] | | | | | (HCC) | [address] | [place], | | | | | Hypertension | Phone: | [place] [address] | | | | | , renal | [phone] | Phone: | | | | | disease | Fax: | [phone] | | | | | Procedures | [phone] | Fax: | | | | | [place] OFFICE | | [phone] | | | | | OUTPATIENT | | | | | | | VISIT 25 | | | | | | | MINUTES | | | +--------+--------+ + + + + Encounter Details +--------+---------+ + + + | Date | Type | Department | Care Team | Description | +--------+---------+ + + + | 10/13/ | Office | [facility] [place] | [place], | Chronic kidney | | 2018 | Visit | NEPHROLOGY [address] | [address] | disease, stage II | | | | [address] | [address] | (mild) (Primary Dx); | | | | [place] | [address] [place] | Hypertension, renal | | | | [address] | [address] | disease, stage 1-4 | | | | [phone] | | or unspecified | | | [...] whether | | | | | | fpc insulin | | | | | | [...] hip. Since then hope s been at [facility] for rehab. 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 0 Gmkfjic-Nypmpqkdj-Lsrhzjh D (CALCIUM 500 PO) Take 1 tablet [...] 2 chronic kidney disease, unspecified w hether fpc insulin use (HCC) E11.22 250.42 Hb A1c [...] Charla Martinez ARNP [facility] documented i n this encounter [...] | | | | | | [place] [address] | | | | | | [phone] | | | | | | | [...] chronic kidney disease, unspecified | | whether fpc insulin use | + + | Vitamin D deficiency Unspecified vitamin D deficiency | + + documented in this encounter
--- OUTSIDE RECORDS SUMMARY | ~2019-09-12 | XMS | Encounter Summary ---
Demographics + + + | Address | [address] | | | [place] [address] | + + + | Home Phone [...] + | Author | [facility] | | | and [place] | + + + | Organization | [facility] [...] | | | | | [place] [address] | | + + + + + | Valentín Saleh | ECON | [address] | | | | | [place] [address] | | + + + + + | Roberto Carlos Lennon | LEVI | Unknown | | + + + + + Care Team Providers + +------+ + | Care Detective Supervisor Name | Role | Phone | [...] | 09/13/ | Refill | [facility] [place] [facility] | Francois Pascal, | Medication Refill | | 2014 | | MEDICINE [facility] [place] | [address] | | | | | AVE [place], | [address] [place], | | | | | [place] [address] | [place] [address] | | | | | [phone] | [phone] | | | | | | | [...] | | | | | | [place] [address] | | | | | | [phone] | | | | | | | | +--------+---------+ + + + documented as of this encounter Visit Diagnoses Not on filedocumented in this encounter"
--- OUTSIDE RECORDS SUMMARY | ~2019-09-12 | XMS | Encounter Summary ---
Demographics + + + | Address | [address] | | | [place] [address] | + + + | Home Phone [...] | Author | [facility] | | | and [place] | + + + | Organization | [facility] | [...] | | | | | [place] [address] | | + + + + + | Valentín Saleh | ECON | [address] | | | | | [place] [address] | | + + + + + | Roberto Carlos Lennon | LEVI | [place] | | + + + + + Care Team Providers + +------+ + | Care Circuit Manager Name | Role | Phone | + +------+ + PCP | Unavailable | + +------+ + Encounter Details +--------+ + + + + | Date | Type | Department | Care Team | Description | +--------+ + + + + | 02/05/ | Hospital | [facility] | | | | 2004 | Encounter | MED CTR LABORATORY | | | | | | [address] | | | | | | [place] | | | | | | [address] | | | | | | [phone] | | | +--------+ + + + [...] | | | | | | [place] [address] | | | | | | [phone] | | | | | | | | +--------+---------+ + + + documented as of this encounter Visit Diagnoses Not on filedocumented in this encounter"
--- OUTSIDE RECORDS SUMMARY | ~2019-09-12 | XMS | Encounter Summary ---
Demographics + + + | Address | [address] | | | [place] [address] | + + + | Home Phone [...] | Author | [facility] | | | and [place] | + + + | Organization | [facility] | [...] | | | | | [place] [address] | | + + + + + | Valentín Saleh | ECON | [address] | | | | | [place] [address] | | + + + + + | Roberto Carlos Lennon | LEVI | Unknown | | + + + + + Care Team Providers + +------+ + | Care Bad Work Gatherer Name | Role | Phone | + [...] Refill | | 2013 | | MEDICINE [place] | [address] | | | | | [address] | [address] [place], | | | | | [place] | [place] [address] | | | | | [address] | [phone] | | | | | [phone] | | | +--------+--------+ + + + [...] | | | | | | [place] [address] | | | | | | [phone] | | | | | | | | +--------+---------+ + + + documented as of this encounter Visit Diagnoses Not on filedocumented in this encounter"
--- OUTSIDE RECORDS SUMMARY | ~2019-09-12 | XMS | Encounter Summary ---
Demographics + + + | Address | [address] | | | [place] [address] | + + + | Home Phone [...] Author | [facility] | | | and [place]ana | + + + | Organization | [facility] [...] | | | | | [place] [address] | | + + + + + | Valentín Saleh | ECON | [phone] | | | | | [place] [address] | | + + + + + | Roberto Carlos Lennon | LEVI | [place] | | + + + + + Care Team Providers + +------+ + | Care Call Center Support Representative Name | Role | Phone | + +------+ + PCP | Unavailable | + +------+ + Encounter Details +--------+ + + + + | Date | Type | Department | Care Team | Description | +--------+ + + + + | 06/01/ | Hospital | [facility] | | | | 1996 - | Encounter | MED CTR ICU [address] | | | | | | [place], | | | | 06/02/ | | [place] [address] | | | | 1996 | | [phone] | | | +--------+ + + + [...] | | | | | | [place] [address] | | | | | | [phone] | | | | | | | | +--------+---------+ + + + documented as of this encounter Visit Diagnoses Not on filedocumented in this encounter"
--- OUTSIDE RECORDS SUMMARY | ~2019-09-12 | XMS | Encounter Summary ---
Demographics + + + | Address | [address] | | | [place] [address] | + + + | Home Phone [...] | Author | [facility] | | | and [place] | + + + | Organization | [facility] | | [...] | | | | | [place] [address] | | + + + + + | Valentín Saleh | ECON | [phone] | | | | | [place] [address] | | + + + + + | Roberto Carlos Lennon | LEVI | Unknown | | + + + + + Care Team Providers + +------+ + | Care Accounts Officer Name | Role | Phone | [...] Ref[facility] | | 2018 | | [facility] | [address] | | | | | [address] | [address] [place], | | | | | [place] | [place] [address] | | | | | [address] | [phone] | | | | | [phone] | | | +--------+--------+ + + + [...] - 10/31/2018 4:47 PM PDTReceived fax from [facility] regarding test strips. Caregiver says patient is testing three times daily. R equest new rx be sent to [facility] in [place] for Medicare Part B billing purposes. No notes that patient should be checking three times daily. Orders from Renee Giang from s are still to check twice daily. Rx for test strips with same instructions sent to [facility] [place]. documented in this encounter Plan of Treatment +--------+---------+ + + + | Date | Type | Specialty | Care Team | Description | +--------+---------+ + + + | 12/06/ | Office | Cardiology | Stephenie Paul, | | | 2019 | Visit | | [address] | | | | | | [place], | | | | | | [place] [address] | | | | | | [phone] | | | | | | | [...]
--- OUTSIDE RECORDS SUMMARY | ~2019-09-12 | XMS | Encounter Summary ---
Demographics + + + | Address | [address] | | | [place] [address] | + + + | Home Phone [...] Author | [facility] | | | and [place] | + + + | Organization | [facility] [...] | | | | | [place] [address] | | + + + + + | Valentín Saleh | ECON | [id number] | | | | | [place] [address] | | + + + + + | Roberto Carlos Lennon | LEVI | [place] | | + + + + + Care Team Providers + +------+ + | Care Tamping Machine Operator Road Forms Name | Role | Phone | + +------+ + PCP | Unavailable | + +------+ + Encounter Details +--------+ + + + + | Date | Type | Department | Care Team | Description | +--------+ + + + + | 05/01/ | Hospital | [facility] | Jason Hernandez, | | | 2010 | Encounter | MED CTR XRAY [address] | PA-C [address] | | | | | [place] | [address] [place] | | | | | [place] [address] | [place] [address] | | | | | [phone] | [phone] | | | | | | | [...] | | | | | | [place] [address] | | | | | | [phone] | | | | | | | | +--------+---------+ + + + documented as of this encounter Visit Diagnoses Not on filedocumented in this encounter"
--- OUTSIDE RECORDS SUMMARY | ~2019-09-12 | XMS | Encounter Summary ---
Demographics + + + | Address | [address] | | | [place] [address] | + + + | Home Phone [...] Author | [facility] | | | and [place] | + + + | Organization | [facility] | [...] | | | | | [place] [address] | | + + + + + | Valentín Saleh | ECON | [phone] | | | | | [place] [address] | | + + + + + | Roberto Carlos Lennon | LEVI | Unknown | | + + + + + Care Team Providers + +------+ + | Care Refrigeration Engine Operator Name | Role | Phone [...] + | 11/14/ | Telephone | [facility] | Francois Pascal, | LABS | | 2012 | | MEDICINE [address] [place] [address] | [address] | | | | | AVE [place], | [address] [place], | | | | | [place] [address] | [place] [address] | | | | | [phone] | [phone] | | | | | | | [...] | | | | | | [place] [address] | | | | | | [phone] | | | | | | | | +--------+---------+ + + + documented as of this encounter Visit Diagnoses Not on filedocumented in this encounter"
--- OUTSIDE RECORDS SUMMARY | ~2019-09-12 | XMS | Encounter Summary ---
Demographics + + + | Address | [address] | | | [place] [address] | + + + | Home Phone [...] Author | [facility] | | | and [place] | + + + | Organization | [facility] | [...] | | | | | [place] [address] | | + + + + + | Valentín Saleh | ECON | [phone] | | | | | [place] [address] | | + + + + + | Roberto Carlos Lennon | LEVI | Unknown | | + + + + + Care Team Providers + +------+ + | Care Key Account Director Name | Role | Phone | [...] + | 01/09/ | Telephone | [facility] | Francois Pascal, | Results | | 2014 | | MEDICINE [address] | [address] | | | | | AVE [place], | [address] [place], | | | | | [place] [address] | [place] [address] | | | | | [phone] | [phone] | | | | | | | [...] | | | | | | [place] [address] | | | | | | [phone] | | | | | | | | +--------+---------+ + + + documented as of this encounter Visit Diagnoses Not on filedocumented in this encounter"
--- OUTSIDE RECORDS SUMMARY | ~2019-09-12 | XMS | Encounter Summary ---
Demographics + + + | Address | [address] | | | [place] [address] | + + + | Home Phone [...] [facility] | | | and [place] | + + + | Address | Unknown | + + + | Phone | Unavailable | + + + Support + + + + + | Name | Relationship | Address | Phone | + + + + + | Sigrid Lennon | ECON | [address] | | | | | [place] [address] | | + + + + + | Valentín Saleh | ECON | [phone] | | | | | [place] [address] | | + + + + + | Roberto Carlos Lennon | LEVI | Unknown | | + + + + + Care Team Providers + +------+ + | Care Bread Wrapper Name | Role | Phone | + [...] | 02/20/ | Refill | [facility] [place] | Stephenie Paul, | Medication Refill | | 2013 | | CARDIOLOGY [address] | MD [address] | | | | | [place], | [place], | | | | | [place] [address] | [place] [address] | | | | | [phone] | [phone] | | | | | | | [...] | | | | | | [place] [address] | | | | | | [phone] | | | | | | | | +--------+---------+ + + + documented as of this encounter Visit Diagnoses Not on filedocumented in this encounter"
--- OUTSIDE RECORDS SUMMARY | ~2019-09-12 | XMS | Encounter Summary ---
Demographics + + + | Address | [address] | | | [place] [address] | + + + | Home Phone [...] | Author | [facility] | | | and [place] | + + + | Organization | [facility] | [...] | | | | | [place] [address] | | + + + + + | Valentín Saleh | ECON | [phone] | | | | | [place] [address] | | + + + + + | Roberto Carlos Lennon | LEVI | Unknown | | + + + + + Care Team Providers + +------+ + | Care Reservations Clerk Name | Role | Phone | + +------+ + | Francois Pascal MD | PCP | | + +------+ + Reason for Visit + + + | Reason | Comments | + + + | Lab Results | | + + + Encounter Details +--------+---------+ + + + | Date | Type | Department | Care Team | Description | +--------+---------+ + + + | 05/31/ | Office | [facility] | Francois Pascal, | Type 2 diabetes | | 2017 | Visit | MEDICINE [address] | [address] | mellitus with | | | | [address] [place], | [address] [place], | complication, with | | | | [place] [address] | [place] [address] | long-term current | | | | [phone] | [phone] | use of insulin (HCC) | | | | | | (Primary Dx); Skin | | | | | | cancer | +--------+---------+ + + + Social History [...] + + + | Blood Pressure | 108/76 | 05/31/2016 9:43 AM | | | | | PDT | | + + + + + | Pulse | 61 | 05/31/2016 9:43 AM | | | | | PDT | | + + + + + | Temperature | 36.6 C (97.8 F) | 05/31/2016 9:43 AM | | | | | PDT | | + + + + + | Respiratory Rate | 20 | 05/31/2016 9:43 AM | | | | | PDT | | + + + + + | Oxygen Saturation | 95% | 05/31/2016 9:43 AM | | | | | PDT | | + + + + + | Inhaled Oxygen | - | - | | | Concentration | | | | + + + + + | Weight | 70.6 kg (155 lb 11.2 | 05/31/2016 9:43 AM | | | | oz) | PDT | | + + + + + | Height | 157.5 cm (5' 2") | 05/31/2016 9:43 AM | | | | | PDT | | + + + + + | Body Mass Index | 28.48 | 05/31/2016 9:43 AM | | | | | PDT | | + + + + + documented in this encounter Progress Notes Francois Pascal MD - 05/31/2016 9:52 AM PDTFormatting of this note might be different f rom the original. Subjective: Patient ID: Alyson Lennon is a 85 y.o. female. HPI History of skin cancer, she has had some of these removed by Dr Bolton. She used to see Helena Ring. She is willing to go back to see Dr Ring again. DM2, with neuropathy, There is no foot ulcer or sore. There is no P,P or P. She is usi ng Lantus 120 QHS, novolog 35 tid, She does no check fasting glucose. She notes he diet h as got off track this winter. She enjoys desserts Review of Systems Objective: Physical Exam Skin with erythematous based process around the scalp and a new verrucous area left forehea d 1 cm Heent, WNL, No carotid bruit Chest CTAB Heart RR&R /cM Abd S,NT,ND,BS+ Ext, no CCor E Assessment: Plan: She declines to see a facilities director, She declines endocrine., Will divide the lantus to 60 un its BID. In crease the novolog to 37 tid. tues after noon bx left forehead, RTC 3 month s with labs prior. documented in this encounter Plan of Treatment +--------+---------+ + + + | Date | Type | Specialty | Care Team | Description | +--------+---------+ + + + | 12/06/ | Office | Cardiology | Stephenie Paul, | | | 2019 | Visit | | [address] [place] [address] | | | | | | [place], | | | | | | [place] [address] | | | | | | [phone] | | | | | | | | +--------+---------+ + + + documented as of this encounter Results Comprehensive Metabolic Panel (08/19/2016 12:17 PM PDT) [...] | 0.93 | 0.60 - 1.30 | [facility] | | | | | mg/dL | [facility] | | | | | [facility] | | | | | | C[facility] - | | | | | | LABORATORY | | + + + + + + | eGFR if not | 57 (L)Comment: | >=60 | [facility] | | | | GLOMERULAR FILTRATION | mL/min/1.73m2 | [facility] | | | [place] | RATE,ESTIMATED | | MEDICAL | | | | mL/min/1.14c2Zvow than | | CENTER - | | [...] + | [facility] | [address] | [place] | [phone] | | [facility] | | [address] | | | - LABORATORY | | [...] | | | Average | | | [facility] | | | Glucose | | | [...] [address] | [place] | [phone] | | [facility] | | [address] | | | - LABORATORY | | | | + + + + + documented in this encounter Visit Diagnoses + + | Diagnosis | + + | Type 2 diabetes mellitus with complication, with long-term current use of insulin | | (HCC) - Primary | + + | Skin cancer Unspecified malignant neoplasm of skin, site unspecified | + + documented in this encounter
--- OUTSIDE RECORDS SUMMARY | ~2019-09-12 | XMS | Encounter Summary ---
Demographics + + + | Address | [address] | | | [place] [address] | + + + | Home Phone [...] | [facility] | | | and [place] | + + + | Organization | [facility] | | [...] | | | | | [place] [address] | | + + + + + | Valentín Saleh | ECON | [phone] | | | | | [place] [address] | | + + + + + | Roberto Carlos Lennon | LEVI | Unknown | | + + + + + Care Team Providers + +------+ + | Care Repair Technician Name | Role | Phone | [...] + + | 04/12/ | Office | [facility] | Francois Pascal, | Diabetes mellitus | | 2018 | Visit | MEDICINE [address] | [address] | due to underlying | | | | [address], | [address] [place], | condition with | | | | [place] [address] | [place] [address] | hyperglycemia, with | | | | [phone] | [phone] | long-term current | | | | [...] less confused. There is no burning with Gini & Jony. Pt denies any confusion. 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 Social History: Born in [facility] [...] | | | | | | [place] [address] | | | | | | [phone] | | | | | | | [...]
--- OUTSIDE RECORDS SUMMARY | ~2019-09-12 | XMS | Encounter Summary ---
Demographics + + + | Address | [address] | | | [place] [address] | + + + | Home Phone [...] | [facility] | | | and [place] | + + + | Organization | [facility] [...] | | | | | [place] [address] | | + + + + + | Valentín Saleh | ECON | [phone] | | | | | [place] [address] | | + + + + + | Roberto Carlos Lennon | LEVI | [place] | | + + + + + Care Team Providers + +------+ + | Care Fur Tanner Name | Role | Phone | + +------+ + PCP | Unavailable | + +------+ + Encounter Details +--------+ + + + + | Date | Type | Department | Care Team | Description | +--------+ + + + + | 09/05/ | Hospital | [facility] | Roberto Carlos Tello, | | | 1995 | Encounter | MED CTR XRAY [address] | [address] [facility] | | | | | [place] | [place] | | | | | [place] [address] | [address] | | | | | [phone] | | | +--------+ + + + [...] | | | | | | [place] [address] | | | | | | [phone] | | | | | | | | +--------+---------+ + + + documented as of this encounter Visit Diagnoses Not on filedocumented in this encounter"
--- OUTSIDE RECORDS SUMMARY | ~2019-09-12 | XMS | Encounter Summary ---
Demographics + + + | Address | [address] | | | [place] [address] | + + + | Home Phone [...] | Author | [facility] | | | and [place] | + + + | Organization | [facility] [...] | | | | | [place] [address] | | + + + + + | Valentín Saleh | ECON | [address] | | | | | [place] [address] | | + + + + + | Roberto Carlos Lennon | LEVI | Unknown | | + + + + + Care Team Providers + +------+ + | Care Pattern Drum Maker Name | Role | Phone | [...] + | 03/21/ | Office | [facility] | Stephenie Paul, | CAD (coronary artery | | 2015 | Visit | CARDIOLOGY [address] | [address] | disease) (Primary | | | | [place], | [place], | Dx); Essential | | | | [place] [address] | [place] [address] | hypertension | | | | [phone] | [phone] | | | | | | | [...] Electronically signed by: Stephenie Paul MD [facility] 03/21/2014 Portions of this chart may have been created with [employer] voice recognition software. Occasi onal wrong-word or [...] | 2019 | Visit | | [address] | | | | | | [place], | | | | | | [place] [address] | | | | | | [phone] | | | | | | | [...] of unspecified type | | of vessel, [place] of [place] or graft | + + | Essential hypertension Unspecified essential hypertension | + + documented in this encounter
--- OUTSIDE RECORDS SUMMARY | ~2019-09-12 | XMS | Encounter Summary ---
Demographics + + + | Address | [address] | | | [place] [address] | + + + | Home Phone [...] + | Author | [facility] | | | and [place] | + + + | Organization | [facility] [...] | | | | | [place] [address] | | + + + + + | Valentín Saleh | ECON | [address] | | | | | [place] [address] | | + + + + + | Roberto Carlos Lennon | LEVI | Unknown | | + + + + + Care Team Providers + +------+ + | Care Dispatcher Bus And Trolley Name | Role | Phone | + [...] Description | +--------+--------+ + + + | 01/23/ | Refill | [facility] [place] [facility] | Francois Pascal, | Medication Refill | | 2013 | | MEDICINE [place] | [address] | | | | | [address] | [address] [place], | | | | | [place] | [place] [address] | | | | | [address] | [phone] | | | | | [phone] | | | +--------+--------+ + + + [...] | | | | | | [place] [address] | | | | | | [phone] | | | | | | | | +--------+---------+ + + + documented as of this encounter Visit Diagnoses Not on filedocumented in this encounter"
--- OUTSIDE RECORDS SUMMARY | ~2019-09-12 | XMS | Encounter Summary ---
Demographics + + + | Address | [address] | | | [place] [address] | + + + | Home Phone [...] | [facility] | | | and [place] | + + + | Organization | [facility] | [...] | | | | | [place] [address] | | + + + + + | Valentín Saleh | ECON | [address] | | | | | [place] [address] | | + + + + + | Roberto Carlos Lennon | LEVI | Unknown | | + + + + + Care Team Providers + +------+ + | Care Roll Scale Man Name | Role | Phone | + +------+ + | Francois aPscal MD | PCP | | + +------+ + Reason for Visit + + + | Reason | Comments | + + + | Medication Refill | | + + + Encounter Details +--------+--------+ + + + | Date | Type | Department | Care Team | Description | +--------+--------+ + + + | 03/09/ | Refill | [facility] [place] [facility] | Francois Pascal, | Medication Refill | | 2012 | | MEDICINE [place] | [address] | | | | | [address] | [address] [place], | | | | | [place] | [place] [address] | | | | | [address] | [phone] | | | | | [phone] | | | +--------+--------+ + + + [...] Telephone Encounter - Airam Menjivar RN - 03/09/2012 10:55 AM PSTLast seen 12/27/2011 Last filled 08/26/2011 Last labs done 12/20/2011 documented in this encounter Plan of Treatment +--------+---------+ + + + | Date | Type | Specialty | Care Team | Description | +--------+---------+ + + + | 12/06/ | Office | Cardiology | Stephenie Paul, | | | 2019 | Visit | | MD [address] | | | | | | [place], | | | | | | [place] [address] | | | | | | [phone] | | | | | | | | +--------+---------+ + + + documented as of this encounter Visit Diagnoses Not on filedocumented in this encounter"
--- OUTSIDE RECORDS SUMMARY | ~2019-09-12 | XMS | Encounter Summary ---
Demographics + + + | Address | [address] | | | [place] [address] | + + + | Home Phone [...] | [facility] | | | and [place] | + + + | Organization | [facility] [...] | | | | | [place] [address] | | + + + + + | Valentín Saleh | ECON | [address] | | | | | [place] [address] | | + + + + + | Roberto Carlos Lennon | LEVI | Unknown | | + + + + + Care Team Providers + +------+ + | Care Calcine Furnace Tender Name | Role | Phone | [...] Description | +--------+---------+ + + + | 02/07/ | Office | [facility] | Francois Pascal, | Type 2 diabetes | | 2018 | Visit | MEDICINE [place] | [address] | mellitus with | | | | [address] | [address] [place], | hyperglycemia, with | | | | [place] | [place] [address] | long-term current | | | | [address] | [phone] | use of insulin (HCC) | | | | [phone] | | (Primary Dx); Mild | | | | | | dementia (HCC); | | | | | | Dementia due to | | | | | | Alzheimer's disease; | | | | | | Essential [...] + + + | Blood Pressure | 112/76 | 02/07/2018 9:33 AM | | | | | PST | | + + + + + | Pulse | 62 | 02/07/2018 9:33 AM | | | | | PST | | + + + + + | Temperature | 36.8 C (98.3 F) | 02/07/2018 9:33 AM | | | | | PST | | + + + + + | Respiratory Rate | 16 | 02/07/2018 9:33 AM | | | | | PST | | + + + + + | Oxygen Saturation | 96% | 02/07/2018 9:33 AM | | | | | PST | | + + + + + | Inhaled Oxygen | - | - | | | Concentration | | | | + + + + + | Weight | 64.4 kg (142 lb) | 02/07/2018 9:33 AM | | | | | PST | | + + + + + | Height | 167.6 cm (5' 6") | 02/07/2018 9:33 AM | | | | | PST | | + + + + + | Body Mass Index | 22.92 | 02/07/2018 9:33 AM | | | | | [...] encounter Progress Notes Francois Pascal MD - 02/07/2018 9:30 AM PSTFormatting of this note might be different f rom the original. Subjective: Patient ID: Alyson Lennon is a 87 y.o. female. HPI Information below has been pulled from previous visit, reviewed and updated as appropriate. HTN, CAD, Afib on xarelto, Followed by Cardiology, No recent CP or SOB. There is Bila teral leg swelling that is mild and unchanged. Diabetes, She is on the lantus and novolog. She has no complaint of foot sore, There is no complaint of P, P or P. Dementia, notes she sleeps a lot. ST memory seems to be "gone" She has occasion al agitation but not yet drastic. Past Medical History: Type 2 DM with [...] VSD Father 50 Pneumonia Family Hx of Huntingdon's chorea Sister and 2 brothers: CAD, Airam's Disease to [place] - with 2 Healthy Children No kidney disease in family. Social History: Born in [facility] for 46 years. and [...] Depression, no anxiety,no sleep problems Objective: BP 112/76 | Pulse 62 | Temp 36.8 C (98.3 F) | Resp 16 | Ht 1.676 m (5' 6") | Wt 64 .4 kg (142 lb) | SpO2 96% | BMI 22.92 kg/m Physical Exam Heent, WNL, No carotid bruit Chest CTAB Heart RR&R /s M Abd S,NT,ND,BS+ Ext, no CCor E Neuro Non-focal Lymph, no cervical, axillary, inguinal adenopathy Musculoskeletal, no gross deformity or loss or range of motion Skin, no gross lesions Assessment: 1. Type 2 diabetes mellitus with hyperglycemia, with long-term current use of insulin (HCC) CBC with Differential Comprehensive Metabolic Panel Hemoglobin A1C 2. Mild dementia 3. Dementia due to Alzheimer's disease 4. Essential hypertension Plan: She looks and feels at baseline. Unfortunately her overall health appears to be slowly dec lining. is concerned about her memory/agitation, we can try to medicate this in . RTC 3 months, Otherwise continue current medical [...] | | | | | | [place] [address] | | | | | | [phone] | | | | | | | | +--------+---------+ + + + documented as of this encounter Visit Diagnoses + + | Diagnosis | + + | Type 2 diabetes mellitus with hyperglycemia, with long-term current use of insulin | | (HCC) - Primary | + + | Mild dementia (HCC) Dementia, unspecified, without behavioral disturbance | + + | 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) | + + | Essential hypertension Unspecified essential hypertension | + + documented in this encounter
--- OUTSIDE RECORDS SUMMARY | ~2019-09-12 | XMS | Encounter Summary ---
Demographics + + + | Address | [address] | | | [place] [address] | + + + | Home Phone [...] | Author | [facility] | | | and [place] | + + + | Organization | [facility] [...] | | | | | [place] [address] | | + + + + + | Valentín Saleh | ECON | [phone] | | | | | [place] [address] | | + + + + + | Roberto Carlos Lennon | LEVI | Unknown | | + + + + + Care Team Providers + +------+ + | Care Director Check Name | Role | Phone | + [...] | 12/11/ | Refill | [facility] | Francois Pascal, | Medication Refill | | 2014 | | [facility] [place] | [address] | | | | | [address] | [address] [place], | | | | | [place] | [place] [address] | | | | | [address] | [phone] | | | | | [phone] | | | +--------+--------+ + + + [...] Telephone Encounter - Airam Menjivar RN - 12/16/2014 8:49 AM PDTPer patient, she is t aking 30units before meals three times daily. [facility] - 12/13/2014 4:35 PM PDTCalled and left message for patient to r eturn call to office. elephone EncounAiram Vargas RN - 12/11/2014 2:33 PM PDTLeft message on voice mail regarding pre scription dosages. d ocumented in this encounter Plan of [...] | | | | | | [place] [address] | | | | | | [phone] | | | | | | | | +--------+---------+ + + + documented as of this encounter Visit Diagnoses Not on filedocumented in this encounter"
--- OUTSIDE RECORDS SUMMARY | ~2019-09-12 | XMS | Encounter Summary ---
Demographics + + + | Address | [address] | | | [place] [address] | + + + | Home Phone [...] | Author | [facility] | | | and [place] | + + + | Organization | [facility] [...] | | | | | [place] [address] | | + + + + + | Valentín Saleh | ECON | [phone] | | | | | [place] [address] | | + + + + + | Roberto Carlos Lennon | LEVI | Unknown | | + + + + + Care Team Providers + +------+ + | Care Plaster And Stucco Worker Name | Role | Phone | [...] | disease, | AVE [address] | VULCANIZED FIBER UNIT OPERATOR [address] | | | | | stage III | [place] | [address] | | | | | (moderate) | [place], [place] | [address] | | | | | (HCC) | [address] | [place], | | | | | Unspecified | Phone: | [place] [address] | | | | | hypertensive | [phone] | Phone: | | | | | kidney | Fax: | [phone] | | | | | disease with | [phone] | Fax: | | | | | chronic | | [phone] | | | | | kidney | [...] | | | | | | | [place] OFFICE | | | | | | [...] | (MODERATE) (Primary | | | | [place], [place] | [address] [place], [place] | Dx); HTN CKD UNS | | | | [address] | [address] | W/CKD STAGE I THRU | | | | [phone] | | STAGE IV/UNS; DM | | [...] DM type 2 (diabetes mellitus, type 2) ([facility]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 Pt is following up with development educator and I encouraged her to discu [...] | | | | | | [place] [address] | | | | | | [phone] | | | | | | | [...]
--- OUTSIDE RECORDS SUMMARY | ~2019-09-12 | XMS | Encounter Summary ---
Demographics + + + | Address | [address] | | | [place] [address] | + + + | Home Phone [...] | Author | [facility] | | | and [place] | + + + | Organization | [facility] | [...] | | | | | [place] [address] | | + + + + + | Valentín Saleh | ECON | [phone] | | | | | [place] [address] | | + + + + + | Roberto Carlos Lennon | LEVI | Unknown | | + + + + + Care Team Providers + +------+ + | Care Welding Machine Tender Name | Role | Phone [...] | 12/22/ | Refill | [facility] [place] [facility] | Francois Pascal, | Medication Refill | | 2012 | | MEDICINE [place] | [address] | | | | | [address] | [address] [place], | | | | | [place] | [place] [address] | | | | | [address] | [phone] | | | | | [phone] | | | +--------+--------+ + + + [...] | | | | | | [place] [address] | | | | | | [phone] | | | | | | | | +--------+---------+ + + + documented as of this encounter Visit Diagnoses Not on filedocumented in this encounter"
--- OUTSIDE RECORDS SUMMARY | ~2019-09-12 | XMS | Encounter Summary ---
Demographics + + + | Address | [address] | | | [place] [address] | + + + | Home Phone [...] | Author | [facility] | | | and [place] | + + + | Organization | [facility] [...] | | | | | [place] [address] | | + + + + + | Valentín Saleh | ECON | [phone] | | | | | [place] [address] | | + + + + + | Roberto Carlos Lennon | LEVI | Unknown | | + + + + + Care Team Providers + +------+ + | Care Bottle Carrier Name | Role | Phone | + [...] + + | 08/03/ | Office | [facility] | Francois Pascal, | Stomatitis (Primary | | 2017 | Visit | MEDICINE [facility] [place] | [address] | Dx); 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 Social History: Born in [facility] for [facility] years. and Remarried [...] | 2019 | Visit | | [address] | | | | | | [place], | | | | | | [place] [address] | | | | | | [phone] | | | | | | | [...]
--- OUTSIDE RECORDS SUMMARY | ~2019-09-12 | XMS | Encounter Summary ---
Demographics + + + | Address | [address] | | | [place] [address] | + + + | Home Phone [...] | Author | [facility] | | | and [place] | + + + | Organization | [facility] | | | and [place] | + + + | Address | Unknown | + + + | Phone | Unavailable | + + + Support + + + + + | Name | Relationship | Address | Phone | + + + + + | Sigrid Lennon | ECON | [address] | | | | | [place] [address] | | + + + + + | Valentín Saleh | ECON | [phone] | | | | | [place] [address] | | + + + + + | Roberto Carlos Lennon | LEVI | Unknown | | + + + + + Care Team Providers + +------+ + | Care Document Scanner Name | Role | Phone | + +------+ + | Francois Pascal MD | PCP | | + +------+ + Reason for Visit + +--------+ + | Reason | Onset | Comments | | | Date | | + +--------+ + | TCM - Hosp FU | 04/09/ | | | | 2019 | | + +--------+ + Encounter Details +--------+ + + + + | Date | Type | Department | Care Team | Description | +--------+ + + + + | 04/09/ | Telephone | [facility] | Tiffany Sanz, | TCM - Hosp FU | | 2019 | | MEDICINE [place] | [place] | | | | | [place], | | | | | | [place] [address] | | | | | | [phone] | | | +--------+ + + + [...] this encounter Miscellaneous Notes Telephone Encounter - Tiffany Sanz RN - 04/09/2019 6:49 PM PST SITUATION Transitional Care Management for follow-up on discharge from: Inpatient Acute Hospital=[facility] Eligible for TCM Billing LOS [id number]? YES DISCHARGING PHYSICIAN: Rosibel Aguilar MD Patient questions/concerns needing provider review: CALLED JUVE-BODY SERVICE TEAM MEMBER OF THE [facility] FOR THIS TCM CALL. SHE INFORMED ME THAT DR KIM AT THE [facility] ASSUMED CARE IN OCTOBER OF 2018, THE REFORE PATIENT NOT ELIGIBLE FOR TCM. WILL HAVE FRONT OFFICE CHANGE PCP IN CHART. BACKGROUND Admission Date: 04/05/19 Discharge Date: 04/06/19 Discharge Disposition: ADULT FAMILY HOME Principle Discharge Diagnosis: Active Hospital Problems Diagnosis Dementia due to Alzheimer's disease Atrial fibrillation =Decreased metoprolol to 50 mg/d. Hypertension, renal disease, stage 1-4 or unspecified chronic kidney disease Resolved Hospital Problems Diagnosis UTI (urinary tract infection) [facility] APPOINTMENT FOR 04/12/19 CANCELLED. documented in this e ncounter Plan of Treatment +--------+---------+ + + + | Date | Type | Specialty | Care Team | Description | +--------+---------+ + + + | 12/06/ | Office | Cardiology | Stephenie Paul, | | | 2019 | Visit | | [address] | | | | | | [place], | | | | | | [place] [address] | | | | | | [phone] | | | | | | | | +--------+---------+ + + + documented as of this encounter Visit Diagnoses Not on filedocumented in this encounter"
--- OUTSIDE RECORDS SUMMARY | ~2019-09-12 | XMS | Encounter Summary ---
Demographics + + + | Address | [address] | | | [place] [address] | + + + | Home Phone [...] | [facility] | | | and [place] | + + + | Organization | [facility] | | | and [place] | + + + | Address | Unknown | + + + | Phone | Unavailable | + + + Support + + + + + | Name | Relationship | Address | Phone | + + + + + | Sigrid Lennon | ECON | [address] | | | | | [place] [address] | | + + + + + | Valentín Saleh | ECON | [phone] | | | | | [place] [address] | | + + + + + | Roberto Carlos Lennon | LEVI | Unknown | | + + + + + Care Team Providers + +------+ + | Care Contract Project Manager Name | Role | Phone [...] + + | 12/26/ | Office | [facility] | Francois Pascal, | OSTEOARTHRITIS, | | 2011 | Visit | MEDICINE [place] | [address] | ANKLE, LEFT; DM | | | | [address] | [address], | (diabetes mellitus) | | | | [place], [place] | [place] [address] | ([facility]); Gout, | | | | [address] | [phone] | unspecified; | | | | [phone] | | HYPERTENSION NEC; | | | [...] Airam's chorea Sister and 2 brothers: CAD, Montour's Disease to [place] - with 2 Healthy Children No kidney disease in family. Social History: Reviewed history from 08/11/2011 and no changes required: Born in [facility] for [facility] years. and Remarried [...] | | | | | | [place] [address] | | | | | | [phone] | | | | | | | [...] + | [facility] | [address] | [place], [place] | [phone] | | [facility] | | [address] | | | - LABORATORY | | | | + + + + + | [facility] | [address] | [place], [place] | | | [facility] | | [address] | | | - LABORATORY | | | | + + + + + documented in this encounter Visit Diagnoses + + | Diagnosis | + + | OSTEOARTHRITIS, ANKLE, LEFT Osteoarthrosis, unspecified whether generalized or | | localized, ankle and foot | + + | DM (diabetes mellitus) ([facility]) Type II or unspecified type diabetes mellitus without | | mention of complication, not stated as uncontrolled | + + | Gout, unspecified | + + | HYPERTENSION NEC Complications affecting other specified body systems, hypertension | + + | Hyperlipidemia Other and unspecified hyperlipidemia | + + documented in this encounter
--- OUTSIDE RECORDS SUMMARY | ~2019-09-12 | XMS | Encounter Summary ---
Demographics + + + | Address | [address] | | | [place] [address] | + + + | Home Phone [...] | [facility] | | | and [place] | + + + | Organization | [facility] | | [...] | | | | | [place] [address] | | + + + + + | Valentín Saleh | ECON | [phone] | | | | | [place] [address] | | + + + + + | Roberto Carlos Lennon | LEVI | Unknown | | + + + + + Care Team Providers + +------+ + | Care Calker Name | Role | Phone | + +------+ + | Francois Pascal MD | PCP | | + +------+ + Encounter Details +--------+ + + + + | Date | Type | Department | Care Team | Description | +--------+ + + + + | 03/21/ | Hospital | [facility] | Francois Pascal, | HYPERTENSION NEC; | | 2015 | Encounter | [facility] | [address] | Hyperlipidemia; DM | | | | [address] [place] | [address] [place], | (diabetes mellitus) | | | | [place] | [place] [address] | | | | | [address] | [phone] | | | | | [phone] | | | +--------+ + + + [...] | | | | | | [place] [address] | | | | | | [phone] | | | | | | | [...] - 1.030 | [facility] | | | [place], | | | [facility] | | [...] + | [facility] | [address] | [place] | [phone] | | [facility] | | [address] | | | - LABORATORY | | | | + + + + + | [facility] | [address] | [place], [place] | | | [facility] | | [id number] | | | - LABORATORY | | [...] + | [facility] | [address] | [place], [place] | [phone] | | [facility] | | [address] | | | - LABORATORY | | | | + + + + + | [facility] | [address] | [place], [place] | | | [facility] | | [id number] [place] [address] | | | - LABORATORY | | [...] + | [facility] | [address] | [place] | [phone] | | [facility] | | [address] | | | - LABORATORY | | | | + + + + + | [facility] | [address] | [place], [place] | | | [facility] | | [id number] [place] [address] | | | - LABORATORY | | [...] LDL, | 57 | <=130 mg/dL | MAR[place]A | | | Calculated | | | [...] [address] | [place] | [phone] | | [facility] | | [address] | | | - LABORATORY | | | | + + + + + | [facility] | [address] | [place], [place] | | | [facility] | | [address], [facility] | | | [...] mL/min/1.73m2 | [facility] | | | MONGOLIAN | RATE,ESTIMATED | | MEDICAL | | | | mL/min/1.19p8Pwka than | | CENTER - | | [...] | 9.9 | 8.3 - 10.5 | [facility] | | | | | mg/dL | [...] [address] | [place] | [phone] | | [facility] | | [address] | | | - LABORATORY | | | | + + + + + | [facility] | [address] | [place], [place] | | | [facility] | | [address], [facility] | | | [...]
--- OUTSIDE RECORDS SUMMARY | ~2019-09-12 | XMS | Encounter Summary ---
Demographics + + + | Address | [address] | | | [place] [address] | + + + | Home Phone [...] | Author | [facility] | | | and [place] | + + + | Organization | [facility] | [...] | | | | | [place] [address] | | + + + + + | Valentín Saleh | ECON | [address] | | | | | [place] [address] | | + + + + + | Roberto Carlos Lennon | LEVI | [place] | | + + + + + Care Team Providers + +------+ + | Care Mechanical Tech Name | Role | Phone | + +------+ + PCP | Unavailable | + +------+ + Encounter Details +--------+ + + + + | Date | Type | Department | Care Team | Description | +--------+ + + + + | 11/02/ | Hospital | [facility] | | | | 2005 | Encounter | [facility] | | | | | | [address] | | | | | | [place] | | | | | | [address] | | | | | | [phone] | | | +--------+ + + + [...] | | | | | | [place] [address] | | | | | | [phone] | | | | | | | | +--------+---------+ + + + documented as of this encounter Visit Diagnoses Not on filedocumented in this encounter"
--- OUTSIDE RECORDS SUMMARY | ~2019-09-12 | XMS | Encounter Summary ---
Demographics + + + | Address | [address] | | | [place] [address] | + + + | Home Phone [...] | Author | [facility] | | | and [place] | + + + | Organization | [facility] | [...] | | | | | [place] [address] | | + + + + + | Valentín Saleh | ECON | [address] | | | | | [place] [address] | | + + + + + | Roberto Carlos Lennon | LEVI | Unknown | | + + + + + Care Team Providers + +------+ + | Care Soot Blower Name | Role | Phone | + +------+ + | Francois Pascal MD | PCP | | + +------+ + Reason for Visit + + + | Reason | Comments | + + + | Abdominal Pain | | + + + Encounter Details +--------+ + + + + | Date | Type | Department | Care Team | Description | +--------+ + + + + | 11/14/ | Emergency | [facility] | David Cross, | Adverse effects of | | 2014 | | [facility] | [address] | medication, initial | | | | CENTER [address] | [place] | encounter (nausea | | | | [place] | [id number] | from antibiotic) | | | | [address] | | (Primary Dx); | | | | [phone] | | Dehydration; Slow | | | | | | transit | | | | | | constipation; | | | | | | Hyponatremia | +--------+ + + + + Social [...] + | Blood Pressure | 124/68 | 11/14/2014 6:03 PM | | | | | PDT | | + + + + + | Pulse | 94 | 11/14/2014 6:04 PM | | | | | PDT | | + + + + + | Temperature | 36.7 C (98.1 F) | 11/14/2014 2:11 PM | | | | | PDT | | + + + + + | Respiratory Rate | 16 | 11/14/2014 2:11 PM | | | | | PDT | | + + + + + | Oxygen Saturation | 96% | 11/14/2014 6:04 PM | | | | | PDT | | + + + + + | Inhaled Oxygen | - | - | | | Concentration | | | | + + + + + | Weight | 70.3 kg (155 lb) | 11/14/2014 2:11 PM | | | | | PDT | | + + + + + | Height | 157.5 cm (5' 2.01") | 11/14/2014 2:11 PM | | | | | PDT | | + + + + + | Body Mass Index | 28.34 | 11/14/2014 2:11 PM | | | | | PDT | | + + + + + documented in this encounter Discharge Instructions AttachmentsThe following attachments cannot be sent through Care Everywhere.CONSTIPATION (Frank JESUS) (TRISTANIAN)documented in this encounter Medications at Time of [...] + + + +---------+ + + | ondansetron | TAKE ONE TABLET AT | 12 | 0 | 11/15/19 | | | (ZOFRAN ODT) 8 mg | ONSET OF | tablet | | 15 | 5 | | disintegrating | NAUSEA/VOMITING | | | | | | tablet | ASSOCIATED WITH | | | | | | | MIGRAINE | | | | | + + [...] encounter ED Notes David Cross MD - 11/14/2014 2:24 PM PDTFormatting of this note might be different fr om the original. [facility] Alyson Lennon Emergency Department Encounter Note [address] [place] [address] PCP:Francois Pascal MD [phone] CHIEF COMPLAINT: Chief Complaint Patient presents with Abdominal Pain ED Room: ED03/ED03 ED Triage Notes Birgit De La Fuente RN 11/14/2014 14:11 Pt was here on Tuesday and was diagnosed with a vaginal infection, states she has been hope ving lower abdominal and groin pain since then. Reports nausea and constipation but denies vomiting. HPI Alyson Lennon is a 83 y.o. female who presents to the Emergency Department with lower abd ominal pain. I have already evaluated this patient in the ER on 11/09/2014 and at that time s he presented with lower abdominal pain and hematuria. Found to have an E coli UTI and treat ed with Levaquin. Patient had a zavala sensitive strain of E coli and has taken 6 days of the Levaquin. She reports that she has the same pain now in the LLQ and she reports it is an ac wolfgang pain. She reports her sugars have been "up and down - a little over 200 and down to 14 4 this morning". She has not had a BM for several days. She had a glass of prune juice las t night and had a small BM then but otherwise has been very constipated "maybe Tuesday was the last time I had a BM before that". No vomiting but does feel nauseated with the abx and she has not been eating much in terms of food and she reports not drinking much either.. S he notes this was not present on her last ER visit. PAST MEDICAL & SURGICAL HISTORY Past Medical History Diagnosis Date Hyperlipemia Vitamin D deficiency Gout Glossitis Hypertension DM type 2 (diabetes mellitus, type 2) (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) (1994&1996) CAR with Hx of Myocardial infarction Other abnormal clinical finding Verebral Compression Fractures Glossitis CAD (coronary artery disease) CHF (congestive heart failure) ([facility]) Arthritis Old NM (myocardial infarction) Carotid stenosis H/O ventricular septal [...] CURRENT MEDICATIONS Discharge Medication List as of 11/14/2014 17:57 CONTINUE these medications which have NOT CHANGED [...] BY MOUTH EVERY DAYDisp-90 tablet, R-1, Normal insulin glargine (LANTUS) 100 units/mL injection INJECT 120 UNITS AT BEDTIMEDisp-50 mL, R-6 , Normal JANUVIA 100 MG tablet TAKE ONE TABLET BY MOUTH EVERY DAYDisp-90 tablet, R-1, Normal methotrexate 2.5 mg tablet TAKE 5 TABLETS BY MOUTH ONCE WEEKLYDisp-20 tablet, R-11, NormalM edication has a BLACK BOX Warning or Severe Contraindications. Consult references such as M Frankly [employer] for further information. metoprolol succinate (TOPROL-XL) 200 mg ER tablet TAKE ONE TABLET BY MOUTH EVERY DAYDisp-90 tablet, R-3, Normal multivitamin (THERAGRAN) per tablet Take 1 by mouth daily niacin (NIASPAN) 500 mg CR tablet TAKE ONE TABLET BY MOUTH EVERY DAYDisp-30 tablet, R-6, No rmal NOVOLOG 100 UNIT/ML injection INJECT 18 UNITS IN THE MORNING, 23 UNITS BEFORE LUNCH AND 28 UNITS BEFORE DINNERDisp-20 mL, R-3, Normal simvastatin (ZOCOR) 40 mg tablet TAKE ONE-HALF TABLET BY MOUTH EVERY DAYDisp-45 tablet, R-3 , Normal ALLERGIES Allergies Allergen Reactions Codeine Sulfate Nausea And Vomiting Darvon Nausea Only Estrogens Patient can't remember FAMILY AND SOCIAL HISTORY Family History Problem Relation Age of Onset Heart attack Mother possible VSD Heart disease Mother Other (See Comment) Father pneumonia Other (See Comment) Other family history of Logan's Disease Heart disease Sister Kidney disease Neg Hx History Social History Marital Status: Spouse Name: Sigrid Number of Children: 2 Years of Education: N/A Occupational History Social History Main Topics Smoking status: Never Smoker Smokeless tobacco: Never Used Alcohol Use: No Drug Use: No Sexual Activity: None Other Topics Concern None Social History Narrative Born in [facility] for 46 years. and Remarried 2 sons local. Patient has never smoked. Alcohol Use - no Exercise: None Caffeine: Decaf only Living Situation: Lives with Sigrid REVIEW OF SYSTEMS Review of Systems Constitutional: Negative for fever, chills and malaise/fatigue. Cardiovascular: Negative for chest pain, palpitations and orthopnea. Gastrointestinal: Positive for nausea, abdominal pain and constipation. Negative for vomiti ng, diarrhea and blood in stool. Genitourinary: Positive for hematuria. Skin: Negative for rash. As in history of present illness. A 10 system review was otherwise negative. PHYSICAL EXAM VITAL SIGNS: (first vital signs):Temp: 36.7 C (98.1 F) Pulse: 96 Resp: 16 SpO2: 95 % BP : 126/68 mmHg Constitutional: female patient, No acute distress. Pleasant. Alert and appropriate. HEENT: Atraumatic, PERRL, Oropharynx benign. Neck: Supple with full range of motion. No JVD, lymphadenopathy, or meningismus. Respiratory: Good air movement bilaterally. No wheezes, No, rales. Cardiovascular: Normal S1 S2. Abdomen: Soft, nontender. No rebound, guarding, or masses. Bowel tones normal. No pulsa tile masses Back: No CVA tenderness. No midline thoracic or lumbar spinal tenderness. Extremities: Nontender. No edema, no calf asymmetry. Present distal pulses. Skin: Warm, Dry, No rashes Neurologic: Alert & oriented. Cranial nerves II-XII intact. Gait and speech are normal. No focal deficits. Psychiatric: Normal mood, affect and judgement. No evidence of suicidal or homicidal idea tion LABS Results for orders placed or performed during the hospital encounter of 11/14/14 CBC w/ Auto Differential Result Value Ref Range WBC 11.3 (H) 4.0-11.0 K/uL RBC 3.81 3.70-5.20 M/uL Hgb 12.9 11.5-16.0 g/dL Hct 38.1 34.0-47.0 % MCV 99.9 83.0-101.0 fL MCH 33.9 28.0-35.0 pg MCHC 33.9 32.0-36.0 g/dL RDW-CV 14.1 <15.0 % Platelet Count 133 (L) 140-440 K/uL MPV 7.7 fL % Neutrophils 68.2 45.0-82.0 % % Lymphocytes 15.1 (L) 20.0-45.0 % % Monocytes 10.5 4.0-12.0 % % Eosinophils 5.4 (H) 0.0-5.0 % % Basophils 0.8 0.0-1.0 % Absolute Neutrophils 7.70 1.80-8.50 K/uL Absolute Lymphocytes 1.70 0.60-3.20 K/uL Absolute Monocytes 1.20 (H) 0.00-1.00 K/uL Absolute Eosinophils 0.60 (H) 0.00-0.40 K/uL Absolute Basophils 0.10 0.00-0.10 K/uL Comprehensive Metabolic Panel Result Value Ref Range NA 124 (L) 136-149 mmol/L K 4.0 3.5-5.1 mmol/L CL 93 (L) 98-109 mmol/L CO2 21 (L) 24-31 mmol/L ANION GAP 10 3-16 mmol/L GLUCOSE 179 (H) 70-109 mg/dL BUN 11 7-18 mg/dL Creatinine, Serum/Plasma 1.30 0.60-1.30 mg/dL eGFR if not 39 (L) >=60 mL/min/1.73m2 CALCIUM 8.8 8.3-10.5 mg/dL ALBUMIN 3.1 (L) 3.2-5.0 g/dL BILIRUBIN TOTAL 0.7 0.1-1.5 mg/dL Total protein 6.2 6.0-7.8 g/dL AST 48 (H) 10-42 U/L ALT 38 6-45 U/L ALK PHOS 40 40-110 U/L GLOBULIN 3.1 g/dL Albumin/Globulin ratio 1.0 BUN/CREA 8.5 Urinalysis with Microscopic with Culture if Indicated Result Value Ref Range COLOR Yellow Light Yellow, Yellow CLARITY Clear Clear PH UA 5.5 5.0-8.0 Specific [place] 1.025 1.001-1.030 PROTEIN UA Negative Negative BLOOD UA Negative Negative GLUCOSE UA Negative Negative KETONES UA Trace (A) Negative BILIRUBIN UA Negative Negative NITRITE UA Negative Negative LEUKOCYTES ESTERASE UA Negative Negative UROBILINOGEN UA 0.2 E.U./dL 0.2 E.U./dL, 1.0 E.U./dL WBC UA 0-2 0-2 /HPF RBC UA 0-2 0-2 /HPF SQUAMOUS EPITHELIAL UA 5-10 (A) 0-2 /LPF TRANSITIONAL EPITHELIAL UA 2-5 (A) 0-2 /HPF BACTERIA UA 1+ (A) Negative /HPF URINE COMMENT Urine Culture Not Indicated Protime INR Result Value Ref Range PROTIME 13.2 11.3-13.9 seconds INR 1.00 0.90-1.10 EXTRA GOLD TOP TUBE Result Value Ref Range EGDT Done EXTRA GREEN TOP TUBE Result Value Ref Range EX GREEN TOP Done IMAGING STUDIES (X-Rays interpreted by ED Physician) Recent imaging: Xr Abdomen Ap 11/14/2014 XR ABDOMEN 1 VW 11/14/2014 2:49 PM HISTORY: ABDOMINAL PAIN. COMPARISON: CT sca n 11/09/2014. FINDINGS: There is a nonobstructive bowel gas pattern with no definite evidence for free air. Mild stool retention is seen. There is mild S-shaped sclerosis of the thoraco lumbar spine. Moderate to extensive spondylosis is seen. Two IVC filters are present. There are cholecystectomy clips. A staple is seen over the right abdomen. There are mild to modera te degenerative changes of the bilateral hips. Pelvic phleboliths are noted. IMPRESSION - N onobstructive bowel gas pattern, mild stool retention. Dictated and Signed by: James Johnson MD Electronically signed: 11/14/2014 3:[address] Head Wo Contrast 10/17/2014 EXAM: CT [...] 4:[address] Renal Stone Wo Contrast 11/10/2014 CT RENAL STONE WO CONTRAST 11/09/2014 7:40 PM HISTORY: HEMATURIA. COMPARISON: CT scan 07/27/2004. PROTOCOL: Axial images of the abdomen and pelvis were obtained. Coronal an d sagittal reformations were acquired. FINDINGS: Mild scarring versus atelectasis is in the lung bases. There is a 6 mm calcified granuloma in the right lung base posterior aspect. St ernotomy wires are seen. Surgical material is observed anterior to the cardiac apex. Extensi ve coronary calcifications are visualized. Imaged liver demonstrates normal parenchyma. The re are cholecystectomy clips. Biliary ducts are unremarkable. Imaged spleen is unremarkable . Moderate atrophy of the pancreas is present with fat infiltration. Adrenals are normal. T here is a tiny exophytic cyst in the upper pole of the right kidney that is too small to luis a racterize and measures 1.1 cm. Visualized right ureter is normal. There is a tiny 2 mm vasc ular calcification in the inferior pole of the left kidney. Visualized left ureter is normal . Stomach, small bowel, and terminal ileum are normal. The appendix has a normal appearance . Colon is unremarkable. Extensive atherosclerosis is present of the aorta. Moderate to sev ere atherosclerosis is visualized of the iliac and femoral arteries. There is no significant abnormality in the portal veins, mesenteric veins, or systemic veins. There appears to be a n IVC filter. No enlarged lymph nodes are visualized within the omentum or retroperitoneum. There is no evidence for ascites or free air. Nonspecific mild wall thickening of the viki dder is present. There are calcifications of the uterus that likely present fibroids. Incr eased soft tissue thickening and density are visualized of the anterior body wall that could be from subcutaneous injections. There is mild S-shaped scoliosis of the thoracolumbar spin e. Slight wedging is present of T10. There is a moderate compression fracture of T11 that ap pears to be old. Moderate spondylosis is observed. Moderate disc narrowing is at L3-4. Sever e disc narrowing are at L4-5 and L5-S1. Multilevel vacuum discs are present. IMPRESSION - N o evidence for obstructive uropathy. There is a 2 mm calcification in the inferior pole of t he left kidney that appears to be vascular. Mild wall thickening of the bladder that could be due to cystitis. Recommend clinical correlation. A preliminary report was sent by [facility] on 11/09/2014 at 8:36 PM with no significant discrepancy. Dictated and Signed by: Maurice Johnson MD Electronically signed: 11/10/2014 1:32 PM ED COURSE & MEDICAL DECISION MAKING Pertinent Labs & Imaging studies were reviewed along with EMS notes and residential record s if applicable. (See chart for details) Medications and Allergy list reviewed. Nurses note and old records were reviewed ER course 14:24 - Patient care initiated. After introducing myself to the patient and family, I perf ormed a careful history and physical examination. I am familiar with this patient from a recent ER visit and today she actually appears much better than she did several days ago. She no longer has a fever, she is not tachycardic, an d her initial laboratory studies do not show a white count. I think many of her symptoms ma y be related to antibiotic intolerance and I am recommending that she stop the Levaquin. Th e culture shows that she had pansensitive E. coli there is no indication to continue therapy past 6 days. Otherwise the patient seems to need some IV fluids, she does appear somewhat dry, but is nontoxic in her abdominal exam remains completely benign. She had a CT scan wit prn the last several days and I don't see any advantage to initiating another CT scan here. We will take a KUB and also check basic laboratory studies and reexamine the patient 15:41. At this point this very nice 83-year-old female does appear dry and has hyponatremi a with a sodium of 124. While low, this not critically low and if the patient is feeling be tter with some IV normal saline, she may be stable for discharge. The KUB shows significant constipation with a fecal mass that would explain her constipation and pain. We will try a fleets enema to see if this relieves her symptoms 16:45. Patient is doing well this time and is able to eat and drink. She feels much brian r. No further pain. I'm recommending Zofran, MiraLAX, and outpatient follow-up with her anju doctor. He is comfortable with this. Last Set of Vital Signs: Temp: 36.7 C (98.1 F) Pulse: 94 Resp: 16 SpO2: 96 % BP: 124/68 mmHg FINAL IMPRESSION 1. Adverse effects of medication, initial encounter (nausea from antibiotic) 2. Dehydration 3. Slow transit constipation 4. Hyponatremia Disposition: Discharge home Condition: Stable Follow-up Information Follow up with Francois Pascal MD. Specialty: Family Medicine Contact information: [address] [facility] [address] Discharge Medication List as of 11/14/2014 17:57 START taking these medications Details ondansetron (ZOFRAN ODT) 8 mg disintegrating tablet TAKE ONE TABLET AT ONSET OF NAUSEA/VOMI TING ASSOCIATED WITH MIGRAINEDisp-12 tablet, R-0, Normal polyethylene glycol (MIRALAX) powder Take 1 diluted capful by mouth 3 times daily (before m eals).Disp-255 g, R-0, Normal Portions of this chart may have been created with [employer] voice recognition software. Occasi onal wrong-word or sound-alike substitutions may have occurred due to the inherent greene itations of voice recognition software. Please read the chart carefully and recognize, using context, where these substitutions have occurred. David Cross MD 11/14/141944 documen rachel in this encounter Miscellaneous Notes ED Triage Notes - Birgit De La Fuente RN - 11/14/2014 2:11 PM PDTPt was here on Tuesday and w as diagnosed with a vaginal infection, states she has been having lower abdominal and groin pain since then. Reports nausea and constipation but denies vomiting. documented in this encounter Plan of Treatment +--------+---------+ + + + | Date | Type | Specialty | Care Team | Description | +--------+---------+ + + + | 12/06/ | Office | Cardiology | Stephenie Paul, | | | 2019 | Visit | | [address] | | | | | | [place], | | | | | | [place] [address] | | | | | | [phone] | | | | | | | | +--------+---------+ + + + documented as of this encounter Procedures + +--------+ + + + | Procedure Name | Priori | Date/Time | Associated Diagnosis | Comments | | | ty | | | | + +--------+ + + + | URINALYSIS WITH | STAT | 11/14/2014 | | Results for this | | MICROSCOPIC WITH | | 3:00 PM | | procedure are in the | | CULTURE IF INDICATED | | PDT | | results section. | + +--------+ + + + | XR ABDOMEN AP | STAT | 11/14/2014 | | Results for this | | | | 2:49 PM | | procedure are in the | | | | PDT | | results section. | + +--------+ + + + | CBC W/AUTO | STAT | 11/14/2014 | | Results for this | | DIFFERENTIAL | | 2:40 PM | | procedure are in the | | | | PDT | | results section. | + +--------+ + + + | EXTRA GREEN TOP TUBE | Routin | 11/14/2014 | | Results for this | | | e | 2:40 PM | | procedure are in the | | | | PDT | | results section. | + +--------+ + + + | EXTRA GOLD TOP TUBE | Routin | 11/14/2014 | | Results for this | | | e | 2:40 PM | | procedure are in the | | | | PDT | | results section. | + +--------+ + + + | PROTIME INR | STAT | 11/14/2014 | | Results for this | | | | 2:40 PM | | procedure are in the | | | | PDT | | results section. | + +--------+ + + + | COMPREHENSIVE | STAT | 11/14/2014 | | Results for this | | METABOLIC PANEL | | 2:40 PM | | procedure are in the | | | | PDT | | results section. | + +--------+ + + + documented in this encounter Results Urinalysis with Microscopic with Culture if Indicated (11/14/2014 3:00 PM PDT) + + + + + [...] + + + + | Specific | 1.025 | 1.001 - 1.030 | [facility] | | | [place], | | | [facility] | | [...] Ketones, | Trace (A) | Negative | [facility] | | [...] + + + + | Transitiona | 2-5 (A) | 0 - 2 [...] ST[facility] | [address] | [place], [place] | [phone] | | [facility] | | [address] | | | - LABORATORY | | | | + + + + + XR Abdomen AP (11/14/2014 2:49 PM PDT) + + | Specimen | + + | | + + + + + | Narrative | Performed At | + + + | XR ABDOMEN 1 VW 11/14/2014 2:49 PM HISTORY: ABDOMINAL PAIN. | [facility] | | COMPARISON: CT scan 11/09/2014. FINDINGS: There is a nonobstructive | | | bowel gas pattern with no definite evidence for free air. Mild stool | | | retention is seen. There is mild S-shaped sclerosis of the | | | thoracolumbar spine. Moderate to extensive spondylosis is seen. Two | | | IVC filters are present. There are cholecystectomy clips. A staple is | | | seen over the right abdomen. There are mild to moderate degenerative | | | changes of the bilateral hips. Pelvic phleboliths are noted. | | | IMPRESSION - Nonobstructive bowel gas pattern, mild stool retention. | | | Dictated and Signed by: James Johnson MD Electronically signed: | | | 11/14/2014 3:07 PM | | + + + + + | Procedure Note | + + | Al, Rad Results In - 11/14/2014 3:10 PM PDT XR ABDOMEN 1 VW 11/14/2014 2:49 PM | | | | HISTORY: ABDOMINAL PAIN. | | | | COMPARISON: CT scan 11/09/2014. | | | | FINDINGS: | | There is a nonobstructive bowel gas pattern with no definite evidence for free | | air. Mild stool retention is seen. There is mild S-shaped sclerosis of the | | thoracolumbar spine. Moderate to extensive spondylosis is seen. Two IVC filters | | are present. There are cholecystectomy clips. A staple is seen over the right | | abdomen. There are mild to moderate degenerative changes of the bilateral hips. | | Pelvic phleboliths are noted. | | | | IMPRESSION - | | Nonobstructive bowel gas pattern, mild stool retention. | | | | Dictated and Signed by: James Johnson MD | | Electronically signed: 11/14/2014 3:07 PM | + + + +---------+ + + | Performing | Address | City/State/Zipcode | Phone Number | | Organization | | | | + +---------+ + + | [facility] | | | | + +---------+ + + EXTRA GREEN TOP TUBE (11/14/2014 2:40 PM PDT) + +-------+ + + + [...] + | [facility] | [address] | [place] | [phone] | | [facility] | | [address] | | | - LABORATORY | | | | + + + + + EXTRA GOLD TOP TUBE (11/14/2014 2:40 PM PDT) + +-------+ + + + [...] [address] | [place] | [phone] | | [facility] | | [address] | | | - LABORATORY | | | | + + + + + Protime INR (11/14/2014 2:40 PM PDT) + + + + + + | Component | Value | Ref Range | Performed | Pathologist | | | | | At | Signature | + + + + + + | Prothrombin | 13.2 | 11.3 - 13.9 | [facility] | | | Time | | seconds | [facility] | | | | | | [facility] | | | | | | [facility] - | | | | | | LABORATORY | | + + + + + + | INR | 1.00Comment: Usual Oral | 0.90 - 1.10 | [...] + | [facility] | [address] | [place] | [phone] | | [facility] | | [address] | | | - LABORATORY | | | | + + + + + Comprehensive Metabolic Panel (11/14/2014 2:40 PM PDT) + + + + + + | Component | Value | Ref Range | Performed | Pathologist | | | | | At | Signature | + + + + + + | Na | 124 (L) | 136 - 149 | [facility] [...] + + + + | Cl | 93 (L) | 98 - 109 mmol/L | [facility] | | | | | | [facility] | | | | | | [facility] | | | | | | [facility] - | | | | | | LABORATORY | | + + + + + + | CO2 | 21 (L) | 24 - 31 mmol/L | [facility] [...] + + + + | Glucose | 179 (H) | 70 - 109 mg/dL | [facility] | | | | | | [facility] | | | | | | [facility] | | | | | | C[facility] - | | | | | | LABORATORY | | + + + + + + | BUN | 11 | 7 - 18 mg/dL | [facility] [...] not | 39 (L)Comment: | >=60 | [facility] | | | | GLOMERULAR FILTRATION | mL/min/1.73m2 | [facility] | | | [place] | RATE,ESTIMATED | | MEDICAL | | | | mL/min/1.68y5Rjat than | | CENTER - | | [...] | 8.8 | 8.3 - 10.5 | [facility] | | | | | mg/dL | [facility] | | | | | | [facility] | | | | | | C[facility] - | | | | | | LABORATORY | | + + + + + + | Albumin | 3.1 (L) | 3.2 - 5.0 g/dL | [facility] | | | | | | [facility] [...] + + | Total | 6.2 | 6.0 - 7.8 g/dL | [facility] | | | Protein | | | [facility] | | | | | | MEDICAL | | | | | | CENTER - | | | | | | LABORATORY | | + + + + + + | AST | 48 (H) | 10 - 42 U/L | [facility] | | | | | | [facility] | | | | | | [facility] | | | | | | CENTER - | | | | | | LABORATORY | | + + + + + + | ALT | 38 | 6 - 45 U/L | [facility] | | | | | | [facility] | | | | | | [facility] | | | | | | CENTER - | | | | | | LABORATORY | | + + + + + + | Alkaline | 40 | 40 - 110 U/L | [facility] | | | Phosphatase | | | [facility] | | | | | | MEDICAL | | | | | | CENTER - | | | | | | LABORATORY | | + + + + + + | Globulin | 3.1 | g/dL | [facility] | | | | | | [facility] | | | | | | [facility] | | | | | | CENTER - | | | | | | LABORATORY | | + + + + + + | Albumin/Kalani | 1.0 | | [facility] | | | bulin Ratio | | | [facility] | | | | | | [facility]ICAL | | | | | | CENTER - | | | | | | LABORATORY | | + + + + + + | BUN/Creatin | 8.5 | | [facility] | | | ine [...] [address] | [place] | [phone] | | [facility] | | [address] | | | - LABORATORY | | | | + + + + + CBC w/ Auto Differential (11/14/2014 2:40 PM PDT) + + + + + [...] + + + + | Hematocrit | 38.1 | 34.0 - 47.0 % | [facility] | | | | | | [facility] | | | | [facility] | [facility] - | | | | | | LABORATORY | | + + + + + + | MCV | 99.9 | 83.0 - 101.0 fL | [facility] [...] + + + + | Platelet | 133 (L) | 140 - 440 K/uL | [facility] | | | Count | | | [facility] | | [facility] | [facility] | | | | | | C[facility] - | | | | | | LABORATORY | | + + + + + + | MPV | 7.7 | fL | [facility] | | | | | | [facility] | [facility] | [facility] | | | [facility] | | [facility] - | | | | | | LABORATORY | | + + + + + + | % | 68.2 | 45.0 - 82.0 % | [facility] | | | Neutrophils | | | [facility] | | | | | | [facility] | | | | | | CENTER - | | | | | | LABORATORY | | + + + + + + | % | 15.1 (L) | 20.0 - 45.0 % | [facility] | | | Lymphocytes | | | [facility] | [facility] | [facility] | | | | | | CENTER - | | | | | | LABORATORY | | + + + + + + | % Monocytes | 10.5 | 4.0 - 12.0 % | [facility] | | | | | | [facility] | [facility] | | | | [facility] | [facility] - | | | | | | LABORATORY | | + + + + + + | % | 5.4 (H) | 0.0 - 5.0 % | [...] + + + + | Absolute | 7.70 | 1.80 - 8.50 | [facility] | | | Neutrophils | | K/uL | [facility] | [facility] | | | | | | [facility]ENTER - | | | | | | LABORATORY | | + + + + + + | Absolute | 1.70 | 0.60 - 3.20 | [facility] | [...] | | Eosinophils | | K/uL | [facility] | | [facility] | [facility] | | | | | | CENTER - | | | | | | LABORATORY | | + + + + + + | Absolute | 0.10 | 0.00 - 0.10 | [facility] | | | Basophils | | K/uL | [facility] | | | | | | [...] [address] | [place] | [phone] | | [facility] | | [address] | | | - LABORATORY | | | | + + + + + documented in this encounter Visit Diagnoses + + | Diagnosis | + + | Adverse effects of medication, initial encounter (nausea from antibiotic) - Primary | + + | Dehydration | + + | Slow transit constipation | + + | Hyponatremia Hyposmolality and/or hyponatremia | + + documented in this encounter Administered Medications + +--------+ +-------+------+------+ | Medication Order | MAR | Action | Dose | Rate | Site | | | Action | Date | | | | + +--------+ +-------+------+------+ | bisacodyl (DULCOLAX) | Given | 11/15/19 | 10 mg | | | | suppository 10 mg 10 mg, Rectal, | | 15 4:09 | | | | | ONCE, [facility] 11/14/14 at 1550, For 1 | | PM PDT | | | | | dose, Put in enema, | | | | | | + +--------+ +-------+------+------+ +---+---+ | | | +---+---+ + +-------+ +------+---+---+ | diazepam (VALIUM) tablet 5 mg | Given | 11/15/19 | 5 mg | | | | 5 mg, Oral, ONCE, Tue11/14/14 at | | 15 2:53 | | | | | 1435, For 1 dose | | PM PDT | | | | + +-------+ +------+---+---+ +---+---+ | | | +---+---+ + +-------+ +--------+---+---+ | lidocaine (XYLOCAINE) 2% | Given | 11/15/19 | 15 mLs | | | | viscous solution 15 mL 15 mL, | | 15 5:10 | | | | | Topical, ONCE, Aarti 11/14/14 at | | PM PDT | | | | | 1710, For 1 dose | | | | | | + +-------+ +--------+---+---+ +---+---+ | | | +---+---+ + +---------+ +--------+-------+---+ | sodium chloride 0.9% (NS) bolus | New Bag | 11/15/19 | 1,000 | 4000 | | | 1,000 mL 1,000 mL, Intravenous, | | 15 3:58 | mLs | mL/hr | | | Administer over 15 Minutes, | | PM PDT | | | | | ONCE, Aarti 11/14/14 at 1540, For 1 | | | | | | | dose | | | | | | + +---------+ +--------+-------+---+ +---+---+ | | | +---+---+ + +-------+ +---------+---+---+ | sodium phosphate (FLEET) enema | Given | 11/15/19 | 133 mLs | | | | 133 mL 133 mL, Rectal, ONCE, Aarti | | 15 4:10 | | | | | 11/14/14 at 1550, For 1 dose | | PM PDT | | | | + +-------+ +---------+---+---+ +---+---+ | | | +---+---+ documented in this encounter
--- OUTSIDE RECORDS SUMMARY | ~2019-09-12 | XMS | Encounter Summary ---
Demographics + + + | Address | [address] | | | [place] [address] | + + + | Home Phone [...] [facility] | | | and [place] | + + + | Organization | [facility] [...] | | | | | [place] [address] | | + + + + + | Valentín Saleh | ECON | [phone] | | | | | [place] [address] | | + + + + + | Roberto Carlos Lennon | LEVI | Unknown | | + + + + + Care Team Providers + +------+ + | Care Physics Technician Name | Role | Phone | + +------+ + | Francois Pascal MD | PCP | | + +------+ + Reason for Visit +--------+--------+ + | Reason | Onset | Comments | | | Date | | +--------+--------+ + | DME | 10/11/ | | | | 2019 | | +--------+--------+ + Encounter Details +--------+ + + + + | Date | Type | Department | Care Team | Description | +--------+ + + + + | 10/11/ | Telephone | [facility] | Francois Pascal, | DME | | 2019 | | [facility] [place] | [address] | | | | | [address] | [address] [place], | | | | | [place] | [place] [address] | | | | | [address] | [phone] | | | | | [phone] | | | +--------+ + + + [...] encounter Miscellaneous Notes Telephone Encounter - Kacy Delaney, Sales Lead - 10/12/2018 9:29 AM PDTFaxed s igned rx and office visit notes to [facility]. elephone Encounter - Diamond Sebastian RN - 10/12/19 19 2:16 PM PDTJustine with [facility] calls in and reports that the patient is in the proce ss of transferring from their facility to an adult family home. The patient and facility are requesting a hospital bed and wheelchair from [facility]. In order to fully process this request [facility] needs most recent chart notes and an order for the wheelchair and hospital bed. Will pend for your review. Once orders are signed please fax to [facility] in [place]. Elect ronically signed by Francois Pascal MD at 10/11/2018 3:20 PM PDTdocumented in this encoun ter Plan of Treatment +--------+---------+ + + + | Date | Type | Specialty | Care Team | Description | +--------+---------+ + + + | 12/06/ | Office | Cardiology | Stephenie Paul, | | | 2019 | Visit | | [address] | | | | | | [place], | | | | | | [place] [address] | | | | | | [phone] | | | | | | | [...]
--- OUTSIDE RECORDS SUMMARY | ~2019-09-12 | XMS | Encounter Summary ---
Demographics + + + | Address | [address] | | | [place] [address] | + + + | Home Phone | | + + + | Preferred Language | Unknown | + + + | Marital Status | | + + + | Jain Affiliation | Unknown | + + + | Race | Unknown | + + + | Ethnic Group | Unknown | + + + Author + + + | Author | [facility] | | | and [place] | + + + | Organization | [facility] | | | and [...] | | | | | [place] [address] | | + + + + + | Valentín Saleh | ECON | [phone] | | | | | [place] [address] | | + + + + + | Roberto Carlos Lennon | LEVI | Unknown | | + + + + + Care Team Providers + +------+ + | Care Computer Analyst Supervisor Name | Role | Phone | + +------+ + | No, Physician | PCP | Unavailable | + +------+ + Encounter Details +--------+ + + + + | Date | Type | Department | Care Team | Description | +--------+ + + + + | 09/03/ | Lab | [facility] | Francois Pascal, | Other penitentiary | | 2017 | Requisition | [facility] CTR LAB[facility] | [address] | (current) drug | | | | [address] [place] | [address] [place], | therapy | | | | [place], [place] | [place] [address] | | | | | [address] | [phone] | | | | | [phone] | | | +--------+ + + + [...] | | | | | | [place] [address] | | | | | | [phone] | | | | | | | | +--------+---------+ + + + documented as of this encounter Procedures + +--------+ + + + | Procedure Name | Priori | Date/Time | Associated Diagnosis | Comments | | | ty | | | | + +--------+ + + + | COMPREHENSIVE | Routin | 09/03/2016 | Other penitentiary | Results for this | | METABOLIC [...] | | | FILTRATION | mL/min/1.73m2 | [facility] | | | MALDIVIAN | RATE,ESTIMATED | | MEDICAL | | | | mL/min/1.22k2Zchi than | | CENTER - | | [...] | 8.8 | 8.3 - 10.5 | [facility] | | | | | mg/dL | [facility] | | | | | | [facility] | | | | | | CENTER - | | | | | | LABORATORY | | + + + + + + | Albumin | 3.1 (L) | 3.2 - 5.0 g/dL | [facility] | | | | | | [facility] [...] [address] | [place] | [phone] | | [facility] | | [address] | | | - LABORATORY | | | | + + + + + documented in this encounter Visit Diagnoses + + | Diagnosis | + + | 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
--- OUTSIDE RECORDS SUMMARY | ~2019-09-12 | XMS | Encounter Summary ---
Demographics + + + | Address | [address] | | | [place] [address] | + + + | Home Phone [...] Author | [facility] | | | and [place] | + + + | Organization | [facility] | | [...] | | | | | [place] [address] | | + + + + + | Valentín Saleh | ECON | [phone] | | | | | [place] [address] | | + + + + + | Roberto Carlos Lennon | LEVI | Unknown | | + + + + + Care Team Providers + +------+ + | Care Forming Operator Name | Role | Phone | + +------+ + | Francois Pascal MD | PCP | | + +------+ + Encounter Details +--------+ + + + + | Date | Type | Department | Care Team | Description | +--------+ + + + + | 11/29/ | Hospital | [facility] | Francois Pascal, | Leg edema, left | | 2018 | Encounter | MED CTR ULTRASOUND | [address] | | | | | [address] [place] | [address] [place] [address], | | | | | [place] | [place] [address] | | | | | [address] | [phone] | | | | | [phone] | | | +--------+ + + + [...] | | 0 | | | | [facility] | mouth Daily. | | | | [...] | | use of insulin ([facility]) | | | | | | [...] | | | | | | [place] [address] | | | | | | [phone] | | | | | | | [...] ordering provider, by the | | | campground hand, immediately following the exam. Dictated and | [...] to the ordering provider, by the | |campground hand, immediately following the exam. | | | [...]
--- OUTSIDE RECORDS SUMMARY | ~2019-09-12 | XMS | Encounter Summary ---
Demographics + + + | Address | [address] | | | [place] [address] | + + + | Home Phone [...] + | Author | [facility] | | | and [place] | + + + | Organization | [facility] | | [...] [address] | | | | | [place] [address] | | + + + + + | Valentín Saleh | ECON | [id number] | | | | | [place] [address] | | + + + + + | Roberto Carlos Lennon | LEVI | Unknown | | + + + + + Care Team Providers + +------+ + | Care Natural Sciences Professor Name | Role | Phone | + +------+ + | Francois Pascal MD | PCP | | + +------+ + Reason for Visit + +--------+ + | Reason | Onset | Comments | | | Date | | + +--------+ + | Medication Orders | 11/01/ | Orders | | | 2018 | | + +--------+ + Encounter Details +--------+ + + + + | Date | Type | Department | Care Team | Description | +--------+ + + + + | 11/01/ | Telephone | [facility] | Francois Pascal, | Medication Orders | | 2018 | | [facility] [place] | [address] | (Orders) | | | | [address] | [address] [place] [address], | | | | | [place] | [place] [address] | | | | | [address] | [phone] | | | | | [phone] | | | +--------+ + + + [...] Notes Telephone Encounter - Yaima Mireles - 11/01/2018 3:08 PM PDTPaperwork has been faxed to [facility] Adult Attn: Bridget TTelephone Encounter - Lisa Pittman RN - 11/01/2018 3:08 PM PDTPCP okayed the in sulin plan. Printed note regarding insulin and his comment and routed to be faxed with the medication s davidelmorolando reviewed and signed as orders. Called Bridget and let her know that everything is being faxed back to her. Asked her if the re was anything else that she needed and she declined. This should be everything that she ne eds right now. Telephone Encounter - Yamileth Bah RN - 11/01/2018 12:09 PM PDTMedication orders addr essed in separate message. Bridget needs printed orders for all OTC meds. Also needs parameters and treatment recommend ations for low and high blood sugars. Instructions while at [facility] were the following: -Monitor blood glucose every morning and evening. -Notify physician of BG less than 60 or above 400. -Give Glucagon 1 unit IM for BG less than 60 and responsive. Do you want to continue with these directions? Please fax orders to Bridget at [phone]. Will need to print off all OTC meds. elephone Lisa Velasquez RN - 11/01/2018 11:27 AM PDTTried to call Rain back, but did n't get an answer. The orders that she is referring to, I believe, are the medications being sent [facility]. I had ordered the medications that she said she was absolutely out of on 10/25/2018 and ask ed one of our nurses here to send the rest to [facility] once we got the medication list. It looks like the medications have been pended, but not signed to go to [facility]. This will be completed today. There are A LOT of separate notes regarding the same issue on this patient making it diffic ult to sort through everything. There is conflicting information regarding the patients status One note talks about [facility].-signed by Dr. Raheem viramontes Another note states the family home said she was not safe with them and that patient needed to be readmitted to [facility]. Signed by Dr. Thayer. When I called last week [facility] camer[facility]andeep said that she was discharged ion 10/18/2018, but no ment ion of her readmit. I then called Bridget last week as well and she reports the patient is staying with them. El ectronically signed by Lisa Pittman RN at 11/01/2018 11:32 AM PDTTelephone Mili Aleman 11/01/2018 10:48 AM PDTTadebo from [facility] upset because she has not received orders, medication for patient stated she has been wo rking on this for 2 weeks would like this resolved mk if not she will be going to the boar d on this issue. Please see previous encounters on this issue. Theresa can be reached at documented in this encounter Plan of Treatment +--------+---------+ + + + | Date | Type | Specialty | Care Team | Description | +--------+---------+ + + + | 12/06/ | Office | Cardiology | Stephenie Paul, | | | 2019 | Visit | | MD [address] | | | | | | [place], | | | | | | [place] [address] | | | | | | [phone] | | | | | | | | +--------+---------+ + + + documented as of this encounter Visit Diagnoses Not on filedocumented in this encounter"
--- OUTSIDE RECORDS SUMMARY | ~2019-09-12 | XMS | Encounter Summary ---
Demographics + + + | Address | [address] | | | [place] [address] | + + + | Home Phone [...] Author | [facility] | | | and [place] | + + + | Organization | [facility] | | | [...] | | | | | [place] [address] | | + + + + + | Valentín Saleh | ECON | [address] | | | | | [place] [address] | | + + + + + | Roberto Carlos Lennon | LEVI | Unknown | | + + + + + Care Team Providers + +------+ + | Care Electrical Transmission Engineer Name | Role | Phone | [...] | | | | | [facility] [address] | [address] [facility] | | | | | [place], [place] | [address] [place] | | | | | [address] | [address] | | | | | [phone] | | | +--------+ + + + [...] 2019 | Visit | | MD [address] | | | | | | [place], | | | | | | [place] [address] | | | | | | [phone] | | | | | | | | +--------+---------+ + + + documented as of this encounter Visit Diagnoses Not on filedocumented in this encounter"
--- OUTSIDE RECORDS SUMMARY | ~2019-09-12 | XMS | Encounter Summary ---
Demographics + + + | Address | [address] | | | [place] [address] | + + + | Home Phone [...] | Author | [facility] | | | and [place] | + + + | Organization | [facility] [...] | | | | | [place] [address] | | + + + + + | Valentín Saleh | ECON | [address] | | | | | [place] [address] | | + + + + + | Roberto Carlos Lennon | LEVI | Unknown | | + + + + + Care Team Providers + +------+ + | Care Transport Truck Driver Name | Role | Phone | + +------+ + | Francois Pascal MD | PCP | | + +------+ + Reason for Visit + +--------+ + | Reason | Onset | Comments | | | Date | | + +--------+ + | Diabetes | 10/30/ | | | | 2019 | | + +--------+ + Encounter Details +--------+ + + + + | Date | Type | Department | Care Team | Description | +--------+ + + + + | 10/30/ | Telephone | [facility] | Francois Pascal, | Diabetes | | 2019 | | MEDIC[facility] [place] | [address] | | | | | [address] | [address], | | | | | [place] | [place] [address] | | | | | [address] | [phone] | | | | | [phone] | | | +--------+ + + + [...] this encounter Miscellaneous Notes Telephone Encounter - Ayanna Mederos RN - 10/30/2018 10:59 AM PDTReceived phone call from [facility] [place]. Patient is needing an order for syringes for the Lantus that she is taking twice a day. Rx sent electronically. documented in thi s encounter Plan of [...] | | | | | | [place] [address] | | | | | | [phone] | | | | | | | | +--------+---------+ + + + documented as of this encounter Visit Diagnoses + + | Diagnosis | + + | DM type 2, uncontrolled, with renal complications (HCC) - Primary Type II or | | unspecified type diabetes mellitus with renal manifestations, uncontrolled | + + documented in this encounter"
--- OUTSIDE RECORDS SUMMARY | ~2019-09-12 | XMS | Encounter Summary ---
Demographics + + + | Address | [address] | | | [place] [address] | + + + | Home Phone [...] | Author | [facility] | | | and [place] | + + + | Organization | [facility] | [...] | | | | | [place] [address] | | + + + + + | Valentín Saleh | ECON | [phone] | | | | | [place] [address] | | + + + + + | Roberto Carlos Lennon | LEVI | [place] | | + + + + + Care Team Providers + +------+ + | Care Real Estate Intern Name | Role | Phone | + +------+ + PCP | Unavailable | + +------+ + Encounter Details +--------+ + + + + | Date | Type | Department | Care Team | Description | +--------+ + + + + | 06/18/ | Hospital | [facility] | | | | 1997 | Encounter | MED CTR GENERIC OP | | | | | | CONV DEPT [address] | | | | | | [place], | | | | | | [place] [address] | | | | | | [phone] | | | +--------+ + + + [...] | | | | | | [place] [address] | | | | | | [phone] | | | | | | | | +--------+---------+ + + + documented as of this encounter Visit Diagnoses Not on filedocumented in this encounter"
--- OUTSIDE RECORDS SUMMARY | ~2019-09-12 | XMS | Encounter Summary ---
Demographics + + + | Address | [address] | | | [place] [address] | + + + | Home Phone [...] Author | [facility] | | | and [place] | + + + | Organization | [facility] [...] | | | | | [place] [address] | | + + + + + | Valentín Saleh | ECON | [phone] | | | | | [place] [address] | | + + + + + | Roberto Carlos Lennon | LEVI | Unknown | | + + + + + Care Team Providers + +------+ + | Care Supply Analyst Name | Role | Phone | + +------+ + | Francois Pascal MD | PCP | | + +------+ + Encounter Details +--------+ + + + + | Date | Type | Department | Care Team | Description | +--------+ + + + + | 06/02/ | Hospital | [facility] | [place], | CHRONIC KIDNEY | | 2016 | Encounter | MED CTR LABORATORY | [address] | DISEASE STAGE III | | | | [address] [place] | [address] [facility] | (MODERATE); Vitamin | | | | [place], [place] | [address] [place], [place] | D deficiency | | | | [address] | [address] | | | | | [phone] | | | +--------+ + + + [...] | 2019 | Visit | | [address] | | | | | | [place], | | | | | | [place] [address] | | | | | | [phone] | | | | | | | [...] + | [facility] | [address] | [place] | [phone] | | [facility] | | [address] | | | - LABORATORY | | [...] mL/min/1.73m2 | [facility] | | | [facility] | | | MEDICAL | | | [...] + | [facility] [facility] | [address] | [place], [place] | [phone] | | [facility] | | [address] | | | - LABORATORY | | [...]
--- OUTSIDE RECORDS SUMMARY | ~2019-09-12 | XMS | Clinical Summary ---
Demographics + + + | Address | [address] | | | [place] [address] | + + + | Home Phone [...] | Author | [facility] | | | and [place]ana | + + + | Organization | [facility] [...] | | | | | [place] [address] | | + + + + + | Valentín Saleh | ECON | [address] | | | | | [place] [address] | | + + + + + | Roberto Carlos Lennon | LEVI | [place] | | + + + + + Care Team Providers + +------+ + | Care Marketing Operations Manager Name | Role | Phone | + +------+ + | No, Physician | PCP | Unavailable | + +------+ + Allergies + + + + + + | Active Allergy | Reactions | Severity | Noted | Comments | | | | | Date | | + + + + + + | Codeine Sulfate | Nausea And Vomiting | | | | + + + + + + | Darvon | Nausea Only | | | | + + + + + + | Estrogens | Unknown | | | Patient can't | | | | | | remember | + + + + + + | Pneumococcal | Swelling | | 01/10/20 | Thinks it was a | | Vaccines | | | 15 | Prevnar, arm became | | | | | | red/sore/swollen | + + + + + + Medications + + + +---------+------+------+-------+ | Medication | Sig | Dispensed | Refills | Star | End | Statu | | | | | | t | Date | s | | | | | | Date | | | + + + +---------+------+------+-------+ | UNCODED | A wheelchair are | 1 each | 0 | 08/0 | | Activ | | DMEIndications: Gait | medically indicated | | | 7/20 | | e | | instability, | to assist with | | | 19 | | | | Physical | movement and proper | | | | | | | deconditioning, | repositioning to | | | | | | | Arthrosis of left | prevent decubiti. 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 | | | | | | | ankle | | | | | | | + + + +---------+------+------+-------+ | methotrexate 2.5 | Take 2 tablets by | 20 | 2 | 08/ | | Activ | | mg | mouth Once a week. | tablet | | 04/26 | | e | | tabletIndications: | Indications: | | | 19 | | | | Rheumatoid Arthritis | Rheumatoid Arthritis | | | | | | + + + +---------+------+------+-------+ | insulin glargine | 10 units every | 50 mL | 6 | 08/2 | | Activ | | (LANTUS) 100 | morning and 10 units | | | 1/20 | | e | | units/mL injection | every evening | | | 19 | | | | (vial)Indications: | | [...] | | + + + +---------+------+------+-------+ | UNCODED | Bed rails for | 1 each | 0 | 08/2 | | Activ | | DMEIndications: | patient bed. | | | 2/20 | | e | | Dementia due to | | | | 19 | | | | Alzheimer's disease | | | | | | | | (HCC) | | | | | | | + + + +---------+------+------+-------+ | atorvaSTATin | Take 1 tablet by | 90 | 1 | 08/2 | | Activ | | (LIPITOR) 40 mg | mouth nightly. | tablet | | 8/20 | | e | | tabletIndications: | | | | 19 | | | | Dyslipidemia | | | | | | | + + + +---------+------+------+-------+ | escitalopram | Take 1 tablet by | 90 | 1 | 08/2 | | Activ | | (LEXAPRO) 10 mg | mouth Daily. | tablet | | 8/20 | | e | | tabletIndications: | | | | 19 | | | | Reactive depression | | | | | | | + + + +---------+------+------+-------+ | lisinopril | TAKE ONE TABLET BY | 90 | 1 | 08/2 | | Activ | | (PRINIVIL, ZESTRIL) | MOUTH EVERY DAY | tablet | | 8/20 | | e | | 20 mg tablet | | | | 19 | | | + + + +---------+------+------+-------+ | cholecalciferol | Take 1 tablet by | 90 | 3 | 08/2 | | Activ | | (VITAMIN D-3) 1000 | mouth Daily. | tablet | | 8/20 | | e | | units TABS | | | | 19 | | | + + + +---------+------+------+-------+ | rivaroxaban | Take 1 tablet by | 90 | 1 | 08/2 | | Activ | | (XARELTO) 10 mg | mouth Daily (with | tablet | | 8/20 | | e | | tablet | dinner). | | | 19 | | | + + + +---------+------+------+-------+ | acetaminophen | Take 2 tablets by | 120 | 1 | 08/2 | | Activ | | (TYLENOL) 325 mg | mouth every 6 hours | tablet | | 8/20 | | e | | tablet | as needed for Pain. | | | 19 | | | + + + +---------+------+------+-------+ | colchicine 0.6 mg | Take 2 tablets at | 30 | 0 | 08/2 | | Activ | | tablet | first sign of gout | tablet | | 8/20 | | e | | | flare, then 1 tablet | | | 19 | | | | | daily as needed. | | | | | | + + + +---------+------+------+-------+ +---+ + | | Additional | | | InformationPatient | | | not taking. Reason: | | | Not Available, | | | Reported on | | | 04/06/2019 9:57 AM | +---+ + + + +--------+---+------+---+-------+ | BD AUTOSHIELD DUO | Use to inject | 400 | 1 | 08 | | Activ | | 30G X 5 MM | insulin 4 times | each | | 08/24 | | e | | MISCIndications: | daily. | | | 19 | | | | Diabetes mellitus | [...] | | | | | + + +--------+---+------+---+-------+ | Glucose Blood | Use to check blood | 200 | 3 | 10/06 | | Activ | | (BLOOD GLUCOSE TEST | sugar twice daily. | each | | 09/23 | | e | | STRIPS) | Dx E08.22 with | | | 19 | | | | STRPIndications: | long-term insulin | | | | | | | Diabetes mellitus | use | | | | | | | [...] | | | | | + + +--------+---+------+---+-------+ | Insulin | USE TO ADMINISTER | 100 | 0 | 10/2 | | Activ | | Syringe-Needle U-100 | LANTUS INSULIN TWO | each | | /20 | | e | | (SURE COMFORT | TIMES A DAY | | | 19 | | | | INSULIN SYRINGE) 31G | | | | | | | | X 5/16" 0.3 ML MISC | | | | | | | + + +--------+---+------+---+-------+ | allopurinol | TAKE ONE TABLET BY | 90 | 1 | 01/0 | | Activ | | (ZYLOPRIM) 100 mg | MOUTH TWICE A DAY | tablet | | 6/20 | | e | | tablet | | | | 20 | | | + + +--------+---+------+---+-------+ | insulin aspart | Inject under the | | 0 | | | Activ | | (NOVOLOG) 100 | skin three times | | | | | e | | units/mL injection | daily as per sliding | | | | | | | | scale 0-200 = 0 | | | | | | | | -457 = 2 | | | | | | | | [id number] = 4 | | | | | | | | units 301-350 = 6 | | | | | | | | units 351-400 = 8 | | | | | | | | units 401+ = | | | | | | | | 10 units CALL MD | | | | | | + + +--------+---+------+---+-------+ | triamcinolone | Apply to affected | | 0 | | | Activ | | (KENALOG) 0.1% cream | area twice daily | | | | | e | + + +--------+---+------+---+-------+ | trolamine | Apply to hands and | | 0 | | | Activ | | salicylate | joints topically as | | | | | e | | (ASPERCREME) 10% | needed for | | | | | | | cream | osteoarthritis up to | | | | | | | | four times daily | | | | | | + + +--------+---+------+---+-------+ | metoprolol | Take 1 tablet by | 30 | 0 | 01/3 | | Activ | | succinate | mouth Daily. | tablet | | /20 | | e | | (TOPROL-XL) 50 mg 24 | | | | 20 | | | | hr tablet | | | | | | | + + +--------+---+------+---+-------+ Active Problems + + + | Problem | Noted Date | + + + | Essential hypertension | 02/07/2018 | + + + | Cellulitis | 11/23/2017 | + + + | Leg edema, left | 11/16/2017 | + + + | Chronic kidney disease, stage II (mild) | 10/13/2017 | + + + | S/p left hip fracture | 11/11/2016 | + + + | Mild dementia | 11/11/2016 | + + + | Dementia due to Alzheimer's disease | 09/09/2016 | + + + | Confusion state | 08/19/2016 | + + + | Autoimmune dermatitis | 08/03/2016 | + + + | Stomatitis | 07/19/2016 | + + + | Reactive depression | 07/19/2016 | + + + | Atrial fibrillation | 07/12/2016 | + + + | Skin cancer | 05/31/2016 | + + + | Essential hypertension with goal blood pressure less than 130/80 | 03/11/2016 | + + + + + | Overview: Echocardiogram, 03/11/2016 shows mild left atrial | | dilatation, normal left ventricular size, wall thickness and | | motion, preserved left ventricular systolic function, LVEF is | | 55%, mildly thickened and calcified mitral valve with a mild | | mitral valve regurgitation, moderate mitral annular | | calcification, mildly thickened and calcified trileaflet aortic | | valve with adequate opening, there is aortic valve sclerosis | | without significant aortic valve stenosis, there is a mild aortic | | valve insufficiency, normal right-sided pressure, mild ascending | | aorta dilatation measuring 4.1 cm in diameter, normal IVC with | | normal respiratory collapse. | + + + + + | Gingival bleeding | 12/02/2015 | + + + | Diabetic neuropathy | 11/26/2015 | + + + | Unsteady | 12/24/2014 | + + + | Posture imbalance | 12/24/2014 | + + + | Impaired functional mobility, balance, gait, and endurance | 12/24/2014 | + + + | Bilateral carotid artery stenosis | 12/09/2014 | + + + | Cystitis | 12/09/2014 | + + + | SOB (shortness of breath) | 11/25/2014 | + + + + + | Overview: Echocardiogram, 11/25/2014 shows Normal LV size and | | systolic function with LVEF 73%, mild aortic and mitral | | insufficiency, mild biatrial enlargement, grade 1 LV diastolic | | dysfunction, no significant changes compared with patient's prior | | study of 2008. 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 | + + + + + | Overview: Problem list machine cutter utility | + + + + + | Preventative health care | 03/23/2012 | + + + + + | Overview: [facility]:03/23/2002normal except for redundancy and | | atonicity Next Due:Mammo:03/02/2012 benign | | Next:03/02/2013Pap:03/24/2009 negative Next: | |Mammo:03/02/2012 benign | | Next:03/02/2013 | | | |Pap:03/24/2009 negative | | Next: | + + + + + | DM (diabetes mellitus) | 12/27/2011 | + + + | ARTHRITIS, CHRONIC | 09/28/2011 | + + + | AMI - ANTEROSEPTAL 1994 | 08/09/2011 | + + + | VSD - 1994 | 08/09/2011 | + + + | CLOSURE VENTRICULAR SEPTAL DEFECT - 1995 | 08/09/2011 | + + + | FATIGUE | 05/24/2011 | + + + | VIRAL URI | 05/24/2011 | + + + | HYPERTRIGLYCERIDEMIA | 12/24/2010 | + + + | Gout, unspecified | 01/21/2010 | + + + + + | Overview: ICD-10 Record update | + + + + + | OSTEOARTHRITIS, ANKLE, LEFT | 01/21/2010 | + + + | CAROTID STENOSIS | | + + + | AMAUROSIS FUGAX | | + + + | DEMYELINATING DISEASE, CENTRAL NERVOUS SYSTEM | | + + + | FRACTURE, ANKLE, LEFT | | + + + | VITAMIN D DEFICIENCY | | + + + | Hypertension, renal disease, stage 1-4 or unspecified chronic | | | kidney disease | | + + + | DM type 2, uncontrolled, with renal complications | | + + + | Glossitis | | + + + | Coronary artery disease involving [place] coronary artery of | | | [place] heart without angina pectoris | | + + + + + | Overview: Status post an anterior wall myocardial infarction | | complicated by VSD, status post VSD repair in 1994.History of an | | inferior wall myocardial infarction status post CABG x3 in 1996. | | An exercise myoview stress test in 2002 revealed a medium-sized | | scar of the anteroseptal region. LVEF by gated SPECT was 56% | + + + +---+ | Hyperlipidemia, mixed | | + +---+ | CONGESTIVE HEART FAILURE | | + +---+ | DEEP VENOUS THROMBOPHLEBITIS | | + +---+ + + | Overview: ICD-10 Record update | + + + +---+ | CHRONIC KIDNEY DISEASE STAGE III (MODERATE) | | + +---+ Resolved Problems + + + + | Problem | Noted | Resolved | | | Date | Date | + + + + | UTI (urinary tract infection) | 10/22/19 | | | | 15 | 0 | + + + + + + | Overview: Problem list machine cutter utility | + + Encounters +--------+ + + + + | Date | Type | Specialty | Care Team | Description | +--------+ + + + + | 07/24/ | Abstract | Family Medicine | Morasch, Francois G, | | | 2019 | | | MD | | +--------+ + + + + | 07/17/ | Refill | Family Medicine | Francois Pascal, | Medication Refill | 2019 | | | MD | | +--------+ + + + + from Last 3 Months Immunizations + + + + | Name | Administration Dates | Next Due | + + + + | INFLUENZA 66 Y OR >, | 01/05/2019, 01/21/2017, 01/10/2016, | | | TRIVALENT HIGH-DOSE | 12/16/2014, 12/31/2013, 12/22/2012 | | + + + + | INFLUENZA PF 19 Y OR | 01/19/2012, 2010, 12/24/2008, | | | >,TRIVALENT | 12/27/2007, 12/27/2006, 01/17/2006, | | | RECOMBINANT | 12/24/2004 | | + + + + | INFLUENZA PF | 02/01/2018 | | | TRIVALENT(PED/ADOL/A | | | | DULMaurice)KIRAKT | | | + + + + | INFLUENZA QUADR | 12/25/2014, 01/03/2014 | | | W/PRES | | | | (PED/ADOL/ADULT) | | | | MULTIDOSE | | | + + + + | INFLUENZA TRIV | 01/19/2012, 2010, 12/24/2008, | | | W/PRES(PED/ADOL/ADUL | 12/27/2007, 12/27/2006, 01/17/2006, | | | T),MULTIDOSE | 12/24/2004 | | + + + + | INFLUENZA, [id number], | 01/19/2012, 2010, 12/24/2008, | | | UNSPECIFIED | 12/27/2007, 12/27/2006, 01/17/2006, | | | | 12/24/2004 | | + + + + | PNEUMOCOCCAL | 12/16/2014 | | | CONJUGATE 13-VALENT | | | | (PCV13) | | | + + + + | PNEUMOCOCCAL | 11/13/2001 | | | POLYSACCHARIDE | | | | 23-VALENT (PPSV23) | | | + + + + | TDAP, (ADOL/ADULT) | 11/18/2005 | | + + + + | ZOSTER, 1 DOSE | 11/18/2005 | | | (ZOSTAVAX) | | | + + + + Family History + + +------+ + | Medical History | Relation | Name | Comments | + + +------+ + | Heart attack | Mother | | possible VSD | + + +------+ + | Heart disease | Mother | | | + + +------+ + | Other (see comment) | Other | | family history of [place]'s Disease | + + +------+ + | Heart disease | Sister | | | + + +------+ + | Kidney disease | Neg Hx | | | + + +------+ + + +------+ + + | Relation | Name | Status | Comments | + +------+ + + | Brother | | | | + +------+ + + | Brother | | | | + +------+ + + | Father | | | | + +------+ + + | Mother | | | | + +------+ + + | Other | | | | + +------+ + + | Sister | | | | + +------+ + + Social History + +-------+ +--------+------+ [...] on file | | + + + Last Filed Vital Signs + + + [...] | | + + + + + Plan of Treatment +--------+---------+ + + + | Date | Type | Specialty | Care Team | Description | +--------+---------+ + + + | 12/06/ | Office | Cardiology | Stephenie Paul, | | | 2020 | Visit | | [address] | | | | | | [place], | | | | | | [place] [address] | | | | | | [phone] | | | | | | | | +--------+---------+ + + + + + + + + | Health Maintenance | Due Date | Last | Comments | | | | Done | | + + + + + | Vaccine: Zoster (2 | | 11/19/19 | | | of 3) | 6 | 06 | | + + + + + | Adult Annual | | | | | Wellness Visit | 5 | | | + + + + + | Vaccine: | | 11/19/19 | | | Dtap/Tdap/Td (2 - | 6 | 06 | | | Td) | | | | + + + + + | Diabetic Foot Exam | | 02/17/20 | | | | 7 | 16, | | | | | 02/17/20 | | | | | 16 | | + + + + + | Breast Cancer | | 03/06/20 | | | Screening | 7 | 15, | | | | | 03/06/20 | | | | | 14, | | | | | 03/06/20 | | | | | 13, | | | | | Addition | | | | | al | | | | | history | | | | | exists | | + + + + + | Diabetic Eye Exam | | 02/17/20 | | | | 8 | 16 | | + + + + + | Hemoglobin A1c | | 10/11/19 | | | Screening | 0 | 19, | | | | | 10/04/19 | | | | | 18, | | | | | 08/20/19 | | | | | 17, | | | | | Addition | | | | | al | | | | | history | | | | | exists | | + + + + + | Vaccine: Influenza | | 01/06/20 | | | (#1) | 0 | 19, | | | | | 02/02/20 | | | | | 18, | | | | | 01/22/20 | | | | | 17, | | | | | Addition | | | | | al | | | | | history | | | | | exists | | + + + + + Implants + +--------+--------+ +--------+--------+--------+ | Implanted | Type | Area | Manufacture | Device | Shelf | Model | | | | | r | | Expira | / | | | | | | Identi | tion | Serial | | | | | | fier | Date | / Lot | + +--------+--------+ +--------+--------+--------+ | Imp Blade Hlcl Tfna 95mm Strl | Generi | Left: | JJHCS DEPUY | | 03/06/ | 04.038 | | - [id number]: Qty: 1 | c | Hip | SYNTHES - | | 2025 | .[id number] | | on 07/10/2016 by Chelsey, | | | SYNT | | | / | | Ru Mckee MD at [facility] | | | | | | /[id number] | | [facility] | | | | | | 42 | | CENTER | | | | | | | + +--------+--------+ +--------+--------+--------+ | Nail Fem Tfna St 125d [id number] | Nail | Left: | JJHCS DEPUY | | 06/04/ | 04.037 | | L - [id number]: Qty: | | Hip | SYNTHES - | | 2025 | .[id number] | | 1 on 07/10/2016 by Chelsey, | | | SYNT | | | / | | Ru Mckee MD at [facility] | | | | | | /[id number] | | [facility] | | | | | | 57 | | CENTER | | | | | | | + +--------+--------+ +--------+--------+--------+ | Screw Im Jenna Slf-Tp F/T | Screw | Left: | JJHCS DEPUY | | | 04.005 | | 5x32mm - [id number]: | | Hip | SYNTHES - | | | .[id number] / | | Qty: 1 on 07/10/2016 by | | | SYNT | | | / | | Ru Barbosa MD at | | | | | | | | [facility] | | | | | | | | [facility] | | | | | | | + +--------+--------+ +--------+--------+--------+ + +-------+--------+ +--------+--------+--------+ | Explanted | Type | Area | Manufacture | Device | Shelf | Model | | | | | r | | Expira | / | | | | | | Identi | tion | Serial | | | | | | fier | Date | / Lot | + +-------+--------+ +--------+--------+--------+ | Screw Im Jenna f-Tp F/T | Screw | Left: | JJHCS DEPUY | | | 04.005 | | 5x46mm - [id number]: | | Hip | SYNTHES - | | | .536 / | | Qty: 1 on 07/10/[address] [facility] | | | SYNT | | | / | | [facility] | | | | | | | | CENTER | | | | | | | + +-------+--------+ +--------+--------+--------+ Procedures + +--------+ + + + | Procedure Name | Priori | Date/Time | Associated Diagnosis | Comments | | | ty | | | | + +--------+ + + + | LABS - EXTERNAL SCAN | | 07/24/2019 | | Results for this | | | | 12:00 AM | | procedure are in the | | | | PDT | | results section. | + +--------+ + + + | LABS - EXTERNAL SCAN | | 07/24/2019 | | Results for this [...] +--------+ + + + | EXTERNAL LAB: CBC | Routin | 07/24/2019 | | Results [...] section. | + +--------+ + + + from Last 3 Months Results External Lab: [facility] (07/24/2019) + +-------+ + [...] Resulting Agency Comment | + + | [facility] [place], [place] | + + + +---------+ + [...] Resulting Agency Comment | + + | [facility] [place] | + + + +---------+ + [...] Resulting Agency Comment | + + | [facility] [place] | + + + +---------+ + + [...] Resulting Agency Comment | + + | [facility] [place] | + + + +---------+ [...] Resulting Agency Comment | + + | [facility] [place], [place] | + + + +---------+ + [...] Resulting Agency Comment | + + | [facility] [place], [place] | + + + +---------+ + [...] Resulting Agency Comment | + + [facility] [place] | + + + +---------+ [...] Resulting Agency Comment | + + | [facility] [place] | + + + +---------+ [...] Resulting Agency Comment | + + | [facility] [place], [place] | + + + +---------+ + [...] Resulting Agency Comment | + + | [facility] [place], [place] | + + + +---------+ + [...] Resulting Agency Comment | + + | [facility], [place] | + + + +---------+ + [...] Agency Comment | + + | [facility] [place] | + + + +---------+ + [...] + | [facility] [place] | + + + +---------+ + [...] Resulting Agency Comment | + + | [facility] [place], [place] | + + + [...] Resulting Agency Comment | + + | [facility], [place] | + + + +---------+ + [...] Resulting Agency Comment | + + | [facility] [place] | + + + +---------+ + + | Performing | Address | City/State/Zipcode | Phone Number | | Organization | | | | + +---------+ + + | EXTERNAL LAB | | | | + +---------+ + + LABS - EXTERNAL SCAN (07/24/2019 12:00 AM PDT)Only the most recent of 2 results within the time period is included. + + + | Narrative | Performed At | + + + | Ordered by an | | | unspecified provider. | | + + + CBC with Differential (07/24/2019) + +-------+ + [...] | | | + +---------+ + + from Last 3 Months Insurance + +--------+ +--------+ [...] + +--------+ | MEDICARE | MEDICA | [id number] | | [phone] | | Medica | | | RE | | [phone]-Pr | 5 | | re | | | PART A | | esent | | | | | | AND B | | | | | | + +--------+ +--------+ + +--------+ | MODA | MODA | [id number] | 05/06/19 | [phone] | [address] | Indemn | | | HEALTH | | 08-Pre | [phone] | [phone] | ity | | | MDCR | | sent | | [place], | | | | [place] | | | | [place] [address] | | + +--------+ +--------+ + +--------+ + +--------+ +--------+ + + | Guarantor Name | Accoun | Relation to | Date | Phone | Billing Address | | | t Type | Patient | of | | | | | | | | | | + +--------+ +--------+ + + | Alyson Lennon | Person | Self [birth year] | [address] | | | al/Fam | | [phone] | [phone] | [place] [address] | | | ian | | | 3 (Home) | | + +--------+ +--------+ + + Advance Directives + + + + + | Type | Date Recorded | Patient | Explanation | | | | Printer Maintainer | | + + + + + | Power of | | | | | Poultry Farm Worker | | | | + + + + + | Advance | 07/30/2014 10:26 | | | | Directive | AM | | | + + + + + + + + + + | Code Status | Date | Date | Comments | | | Activated | Inactivated | | + + + + + | DNR (No | 04/06/2019 | 04/06/2019 | | | Code) | 12:40 AM | 5:25 PM | | + + + + + + + +---+ | RN or MD to pronounce: | RN may | | | | pronounce | | + + +---+ + + + +---+ | | | | | + + + +---+ | Full Code | 07/10/2016 | 07/13/2016 | | | | 3:53 PM | 6:09 PM | | + + + +---+ + + + +---+ | | | | | + + + +---+ | Full Code | 07/10/2016 | 07/10/2016 | | | | 3:52 PM | 3:53 PM | | + + + +---+
--- OUTSIDE RECORDS SUMMARY | ~2019-09-12 | XMS | Encounter Summary ---
Demographics + + + | Address | [address] | | | [place] [address] | + + + | Home Phone [...] | Author | [facility] | | | and [place] | + + + | Organization | [facility] | [...] | | | | | [place] [address] | | + + + + + | Valentín Saleh | ECON | [id number] | | | | | [place] [address] | | + + + + + | Roberto Carlos Lennon | LEVI | [place] | | + + + + + Care Team Providers + +------+ + | Care Doll Wig Maker Name | Role | Phone | + +------+ + PCP | Unavailable | + +------+ + Encounter Details +--------+ + + + + | Date | Type | Department | Care Team | Description | +--------+ + + + + | 04/10/ | Hospital | [facility] | Jason Hernandez, | | | 2009 | Encounter | MED CTR XRAY [address] | PA-C [address] | | | | | [place] | [address] [place] | | | | | [place] [address] | [place] [address] | | | | | [phone] | [phone] | | | | | | | [...] | | | | | | [place] [address] | | | | | | [phone] | | | | | | | | +--------+---------+ + + + documented as of this encounter Visit Diagnoses Not on filedocumented in this encounter"
--- OUTSIDE RECORDS SUMMARY | ~2019-09-12 | XMS | Encounter Summary ---
Demographics + + + | Address | [address] | | | [place] [address] | + + + | Home Phone [...] | Author | [facility] | | | and [place] | + + + | Organization | [facility] | [...] | | | | | [place] [address] | | + + + + + | Valentín Saleh | ECON | [address] | | | | | [place] [address] | | + + + + + | Roberto Carlos Lennon | LEVI | [place] | | + + + + + Care Team Providers + +------+ + | Care Director Of Annual Giving Name | Role | Phone | + +------+ + PCP | Unavailable | + +------+ + Encounter Details +--------+ + + + + | Date | Type | Department | Care Team | Description | +--------+ + + + + | 09/02/ | Hospital | [facility] | | | | 2006 | Encounter | [facility] | | | | | | [address] | | | | | | [place] | | | | | | [address] | | | | | | [phone] | | | +--------+ + + + [...] | | | | | | [place] [address] | | | | | | [phone] | | | | | | | | +--------+---------+ + + + documented as of this encounter Visit Diagnoses Not on filedocumented in this encounter"
--- OUTSIDE RECORDS SUMMARY | ~2019-09-12 | XMS | Encounter Summary ---
Demographics + + + | Address | [address] | | | [place] [address] | + + + | Home Phone [...] | Author | [facility] | | | and Clarkeana | + + + | Organization | [facility] | [...] | | | | | [place] [address] | | + + + + + | Valentín Saleh | ECON | [address] | | | | | [place] [address] | | + + + + + | Roberto Carlos Lennon | LEVI | [place] | | + + + + + Care Team Providers + +------+ + | Care Wind Farm Engineer Name | Role | Phone | + +------+ + PCP | Unavailable | + +------+ + Encounter Details +--------+ + + + + | Date | Type | Department | Care Team | Description | +--------+ + + + + | 10/08/ | Hospital | [facility] | | | | 2002 | Encounter | MED CTR XRAY [address] | | | | | | [place] | | | | | | [place] [address] | | | | | | [phone] | | | +--------+ + + + [...] | | | | | | [place] [address] | | | | | | [phone] | | | | | | | | +--------+---------+ + + + documented as of this encounter Visit Diagnoses Not on filedocumented in this encounter"
--- OUTSIDE RECORDS SUMMARY | ~2019-09-12 | XMS | Encounter Summary ---
Demographics + + + | Address | [address] | | | [place] [address] | + + + | Home Phone [...] | Author | [facility] | | | and [place]ana | + + + | Organization | [facility] [...] | | | | | [place] [address] | | + + + + + | Valentín Saleh | ECON | [address] | | | | | [place] [address] | | + + + + + | Roberto Carlos Lennon | LEVI | Unknown | | + + + + + Care Team Providers + +------+ + | Care Pattern Marker Name | Role | Phone | + [...] | [address] | [address] | | | | | ([facility]) | [place] | [place], | | | | | | [place], [place] | [place] | | | | | | [address] | [address] | | | | | | Phone: | Phone: | | | | | | [phone] | [phone] | | | | | | Fax: | Fax: | | | | | | [phone] | [phone] | +--------+ + + + + + Encounter Details +--------+---------+ + + + | Date | Type | Department | Care Team | Description | +--------+---------+ + + + | 09/25/ | Office | [facility] | Francois Pascal, | DM (diabetes | | 2014 | Visit | MED CTR DIABETES | [address] | mellitus) ([facility]) | | | | EDUCATION [address] | [address] [place], | (Primary Dx) | | | | [address] [place], | [place] [address] | | | | | [place] [address] | [phone] | | | | | [phone] | | | | | | | [...] | 2019 | Visit | | [address] | | | | | | [place], | | | | | | [place] [address] | | | | | | [phone] | | | | | | | [...]
--- OUTSIDE RECORDS SUMMARY | ~2019-09-12 | XMS | Encounter Summary ---
Demographics + + + | Address | [address] | | | [place] [address] | + + + | Home Phone [...] | Author | [facility] | | | and Clarkeana | + + + | Organization | [facility] [...] | | | | | [place] [address] | | + + + + + | Valentín Saleh | ECON | [address] | | | | | [place] [address] | | + + + + + | Roberto Carlos Lennon | LEVI | [place] | | + + + + + Care Team Providers + +------+ + | Care Porcelain Waxer Name | Role | Phone | + +------+ + PCP | Unavailable | + +------+ + Encounter Details +--------+ + + + + | Date | Type | Department | Care Team | Description | +--------+ + + + + | 03/04/ | Hospital | [facility] | Francois Pascal, | | | 2008 | Encounter | MED CTR XRAY [address] | [address] | | | | | [place] | [address] [place], | | | | | [place] [address] | [place] [address] | | | | | [phone] | [phone] | | | | | | | [...] | | | | | | [place] [address] | | | | | | [phone] | | | | | | | | +--------+---------+ + + + documented as of this encounter Visit Diagnoses Not on filedocumented in this encounter"
--- OUTSIDE RECORDS SUMMARY | ~2019-09-12 | XMS | Encounter Summary ---
Demographics + + + | Address | [address] | | | [place] [address] | + + + | Home Phone [...] | Author | [facility] | | | and Clarkeana | + + + | Organization | [facility] [...] | | | | | [place] [address] | | + + + + + | Valentín Saleh | ECON | [address] | | | | | [place] [address] | | + + + + + | Roberto Carlos Lennon | LEVI | Unknown | | + + + + + Care Team Providers + +------+ + | Care Plate Grainer Apprentice Name | Role | Phone | [...] | disease, | [address] | SUPERVISOR MATTRESS AND BOXSPRINGS [address] | | | | | stage 3 | [place] | [address] | | | | | (moderate) | [place] | [address] | | | | | (HCC) | [address] | [place], | | | | | Hypertension | Phone: | [place] [address] | | | | | , renal | [phone] | Phone: | | | | | disease | Fax: | [phone] | | | | | Procedures | [phone] | Fax: | | | | | [place] OFFICE | | [phone] | | | | | OUTPATIENT | | | | | | | VISIT 25 | | | | | | | MINUTES | | | +--------+--------+ + + + + Encounter Details +--------+---------+ + + + | Date | Type | Department | Care Team | Description | +--------+---------+ + + + | 04/07/ | Office | [facility] [place] | [place], | CHRONIC KIDNEY | | 2018 | Visit | NEPHROLOGY [address] | [address] | DISEASE STAGE III | | | | [address] | [address] | (MODERATE) (Primary | | | | [place] | [address] | Dx); Hypertension, | | | | [address] | [address] | renal disease; | | | | [phone] | | Uncontrolled type 2 | | | | | | diabetes mellitus | | | | | | with diabetic | | | | | | nephropathy, | | | | | | unspecified long | | | | | | term insulin use | | | | | | status ([facility]) | +--------+---------+ + + + Social History [...] hip. Since then hope s been at [facility] for rehab. She is ambulating [...] Diagnosis Date Noted DM (diabetes mellitus) ([facility]) 12/27/2011 Priority: High Glossitis Priority: High Hyperlipidemia, [...] Stomatitis 07/19/2016 Reactive depression 07/19/2016 Atrial fibrillation ([facility]) 07/12/2016 Skin cancer 05/31/2016 Essential hypertension with [...] respiratory collapse. 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 Note Last Updated: 12/16/2015 Problem list cooker pie filling utility Preventative health care 03/23/2012 Note Last Updated: 09/27/2012 CRSC:03/23/2002normal except for redundancy and atonicity Next Due: Mammo:03/02/2012 benign Next:03/02/2013 Pap:03/24/2009 negative Next: CAROTID STENOSIS AMAUROSIS FUGAX DEMYELINATING DISEASE, CENTRAL NERVOUS SYSTEM FRACTURE, ANKLE, LEFT VITAMIN D DEFICIENCY Hypertension, renal disease DM type 2, uncontrolled, with renal complications (HCC) Coronary artery disease involving muscogee coronary artery of muscogee heart without angina pectoris Note Last Updated: [...] rectally Daily as needed for Constipation. 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 CC: MD Renee Martinez 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
--- OUTSIDE RECORDS SUMMARY | ~2019-09-12 | XMS | Encounter Summary ---
Demographics + + + | Address | [address] | | | [place] [address] | + + + | Home Phone [...] Author | [facility] | | | and [place]ana | + + + | Organization | [facility] [...] | | | | | [place] [address] | | + + + + + | Valentín Saleh | ECON | [address] | | | | | [place] [address] | | + + + + + | Roberto Carlos Lennon | LEVI | Unknown | | + + + + + Care Team Providers + +------+ + | Care Activities Specialist Name | Role | Phone | + +------+ + | Francois Pascal MD | PCP | | + +------+ + Encounter Details +--------+ + + + + | Date | Type | Department | Care Team | Description | +--------+ + + + + | 09/11/ | Hospital | [facility] | Francois Pascal, | ARTHRITIS, CHRONIC; | | 2012 | Encounter | MED CTR LABORATORY | [address] | CHRONIC KIDNEY | | | | [address] [place] | [address] [place], | DISEASE STAGE III | | | | [place], [place] | [place] [address] | (MODERATE); DM | | | | [address] | [phone] | (diabetes mellitus) | | | | [phone] | | (HCC) | +--------+ + + [...] | | | | | | [place] [address] | | | | | | [phone] | | | | | | | [...] + | [facility] | [address] | [place], [place] | [phone] | | [facility] | | [address] | | | - LABORATORY | | | | + + + + + | [facility] | [address] | [place], [place] | | | [facility] | | [id number] | | | - LABORATORY | [...] + | [facility] | [address] | [place] | [phone] | | [facility] | | [address] | | | - LABORATORY | | | | + + + + + | [facility] | [address] | [place] | | | [facility] | | [address], [facility] | | [...] + | [facility] | [address] | [place] | [phone] | | [facility] | | [address] | | | - LABORATORY | | | | + + + + + | [facility] | [address] | [place], [place] | | | [facility] | | [id number] [place] [address] | | | - LABORATORY | | [...] + | [facility] | [address] | [place], [place] | [phone] | | [facility] | | [address] | | | - LABORATORY | | | | + + + + + | [facility] | [address] | [place], [place] | | | [facility] | | [address], [facility] | | [...] | [facility] | | | | [facility] | | MEDICAL | | | [...] + | [facility] | [address] | [place] | [phone] | | [facility] | | [address] | | | - LABORATORY | | | | + + + + + | [facility] | [address] | [place], [place] | | | [facility] | | [id number] | | | - LABORATORY | [...]
--- OUTSIDE RECORDS SUMMARY | ~2019-09-12 | XMS | Encounter Summary ---
Demographics + + + | Address | [address] | | | [place] [address] | + + + | Home Phone [...] Author | [facility] | | | and [place]ana | + + + | Organization | [facility] [...] | | | | | [place] [address] | | + + + + + | Valentín Saleh | ECON | [address] | | | | | [place] [address] | | + + + + + | Roberto Carlos Lennon | LEVI | Unknown | | + + + + + Care Team Providers + +------+ + | Care E Commerce Project Manager Name | Role | Phone [...] | disease, | [address] | ENVIRONMENTAL FIELD PROFESSIONAL [address] | | | | | stage III | [place] | [address] | | | | | (moderate) | [place], [place] | [address] | | | | | (HCC) | [address] | [place], | | | | | Unspecified | Phone: | [place] [address] | | | | | hypertensive | [phone] | Phone: | | | | | kidney | Fax: | [phone] | | | | | disease with | [phone] | Fax: | | | | | chronic | | [phone] | | | | | kidney | [...] | | | | | | | [place] OFFICE | | | | | | [...] DM type 2, | | | | [address] | [address] | uncontrolled, with | | | | [phone] | | renal complications | | | [...] this encounter Progress Notes Kemar Herndon Katie, ENVIRONMENTAL FIELD PROFESSIONAL - 06/06/2014 10:32 AM PDTFormatting of this [...] 2 (diabetes mellitus, type 2) ([facility]) 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 Myocardial infarction (HCC) (1994&1996) CAR with Hx of Myocardial infarction Other abnormal clinical finding Verebral Compression Fractures Glossitis CAD (coronary artery disease) CHF (congestive heart failure) ([facility]) Arthritis Old [place] (myocardial infarction) ([facility]) Carotid stenosis H/O ventricular septal defect repair DVT (deep vein thrombosis) in Chronic kidney disease, stage III (moderate) ([facility]) Vitamin D deficiency Gout Osteoporosis OSTEOARTHRITIS, [...] | | | | | | [place] [address] | | | | | | [phone] | | | | | | | [...] 1.001 - 1.030 | | | | [place], | | | | | | UA, [...]
--- OUTSIDE RECORDS SUMMARY | ~2019-09-12 | XMS | Encounter Summary ---
Demographics + + + | Address | [address] | | | [place] [address] | + + + | Home Phone [...] | [facility] | | | and Clarkeana | + + + | Organization | [facility] | [...] | | | | | [place] [address] | | + + + + + | Valentín Saleh | ECON | [address] | | | | | [place] [address] | | + + + + + | Roberto Carlos Lennon | LEVI | Unknown | | + + + + + Care Team Providers + +------+ + | Care Hospice Admitting Clerk Name | Role | Phone | [...] | | 2016 | Visit | MEDICINE [facility] | [address] | mellitus with stage | | | | AVE [address] [place], | [address] [place], | 3 chronic kidney | | | | [place] [address] | [place] [address] | disease (HCC) | | | | [phone] | [phone] | (Primary Dx); | | | | [...] replacement. She is now seeing Dr Ochoa, [facility]. DM2, with neuropathy, she was off her diet a little. She is back on this,. She has almo st eliminated potatoes, bread, rice, pasta. She does not eat much desserts. Lantus 120 QHS , novolog 35, lantus. She does not want to see the tire stripper. Past Medical History: Type 2 DM with [...] VSD Father 50 Pneumonia Family Hx of [place]'s chorea Sister and 2 brothers: CAD, [place]'s Disease to Sigrid - with 2 Healthy Children No kidney disease in family. Social History: Born in [facility] for 46 years. and Remarried 2 [...] | | | | | | [place] [address] | | | | | | [phone] | | | | | | | [...] [address] | [place] | [phone] | | [facility] | | [address] | | | - LABORATORY | | [...]
--- OUTSIDE RECORDS SUMMARY | ~2019-09-12 | XMS | Encounter Summary ---
Demographics + + + | Address | [address] | | | [place] [address] | + + + | Home Phone [...] | Author | [facility] | | | and [place]ana | + + + | Organization | [facility] [...] | | | | | [place] [address] | | + + + + + | Valentín Saleh | ECON | [address] | | | | | [place] [address] | | + + + + + | Roberto Carlos Lennon | LEVI | Unknown | | + + + + + Care Team Providers + +------+ + | Care Edger Operator Name | Role | Phone | + +------+ + | Francois Psacal MD | PCP | | + +------+ + Encounter Details +--------+ + + + + | Date | Type | Department | Care Team | Description | +--------+ + + + + | 01/09/ | Hospital | [facility] | Francois Pascal, | Essential | | 2015 | Encounter | MED CTR LABORATORY | [address] | hypertension; DM | | | | [address] [place] | [address] [place], | (diabetes mellitus); | | | | [place], [place] | [place] [address] | CHRONIC KIDNEY | | | | [address] | [phone] | DISEASE STAGE III | | | | [phone] | | (MODERATE); CKD | | | [...] | | | | | | mellitus) ([facility]) | | [...] | | | | | | [place] [address] | | | | | | [phone] | | | | | | | [...] [address] | [place] | [phone] | | [facility] | | [address] | | | - LABORATORY | | [...] 1.37 (H) | 0.60 - 1.30 | [facility] | | | | | mg/dL | [...] mL/min/1.73m2 | [facility] | | | [place] | RATE,ESTIMATED | | MEDICAL | | | | mL/min/1.96w6Zqxx than | | CENTER - | | [...] + | [facility] | [address] | [place] | [phone] | | [facility] | | [address] | | | - LABORATORY | | [...] ST. | [address] | [place], [place] | [phone] | | [facility] | | [address] | | | - LABORATORY | | [...]
--- OUTSIDE RECORDS SUMMARY | ~2019-09-12 | XMS | Encounter Summary ---
Demographics + + + | Address | [address] | | | [place] [address] | + + + | Home Phone [...] | [facility] | | | and [place]ana | + + + | Organization | [facility] | | [...] | | | | | [place] [address] | | + + + + + | Valentín Saleh | ECON | [address] | | | | | [place] [address] | | + + + + + | Roberto Carlos Lennon | LEVI | Unknown | | + + + + + Care Team Providers + +------+ + | Care Pulpwood Dealer Name | Role | Phone | + +------+ + | Francois Pascal MD | PCP | | + +------+ + Reason for Visit + +--------+ + | Reason | Onset | Comments | | | Date | | + +--------+ + | Paperwork | 03/26/ | | | | 2019 | | + +--------+ + Encounter Details +--------+ + + + + | Date | Type | Department | Care Team | Description | +--------+ + + + + | 03/26/ | Telephone | [facility] | Francois Pascal, | Paperwork | | 2019 | | MEDICINE [place] | [address] | | | | | [address] | [address] [place], | | | | | [place] | [place] [address] | | | | | [address] | [phone] | | | | | [phone] | | | +--------+ + + + [...] Telephone Encounter - Diamond Sebastian RN - 03/26/2019 1:38 PM PSTReceived signed order for discharge from retirement from the front man that was signed by Miguelina back in [place]. Looks like this has all already been taken care of. I will destroy this script at thi s time. documented in this encounter Plan of Treatment +--------+---------+ + + + | Date | Type | Specialty | Care Team | Description | +--------+---------+ + + + | 12/06/ | Office | Cardiology | Stephenie Paul, | | | 2019 | Visit | | MD [address] | | | | | | [place], | | | | | | [place] [address] | | | | | | [phone] | | | | | | | | +--------+---------+ + + + documented as of this encounter Visit Diagnoses Not on filedocumented in this encounter"
--- OUTSIDE RECORDS SUMMARY | ~2019-09-12 | XMS | Encounter Summary ---
Demographics + + + | Address | [address] | | | [place] [address] | + + + | Home Phone [...] Author | [facility] | | | and [place]ana | + + + | Organization | [facility] [...] | | | | | [place] [address] | | + + + + + | Valentín Saleh | ECON | [address] | | | | | [place] [address] | | + + + + + | Roberto Carlos Lennon | LEVI | Unknown | | + + + + + Care Team Providers + +------+ + | Care Heart Doctor Name | Role | Phone | + [...] | hypertension | [address] | TREATING ENGINEER HELPER [address] | | | | | Chronic | [place] | [address] | | | | | kidney | [place] | [address] | | | | | disease, | [address] | [place], | | | | | stage III | Phone: | [place] [address] | | | | | (moderate) | [phone] | Phone: | | | | | (HCC) Type | Fax: | [phone] | | | | | II or | [phone] | Fax: | | | | | unspecified | | [phone] | | | | | type | [...] | | | | | | | [place] OFFICE | | | | | | [...] | (MODERATE) (Primary | | | | [place], [place] | [address] | Dx); Hypertension, | | | | [address] | [address] | renal disease, stage | | | | [phone] | | 1-4 or unspecified | | | | | | chronic kidney | | | | | | disease; DM type 2, | | | | | | uncontrolled, with | | | | | | renal complications | | | | | | ([facility]); Vitamin D | | | [...] Date Noted DM (diabetes mellitus) ([facility]) 12/27/2011 Priority: High Glossitis Priority: [...] 10/21/2014 Note Last Updated: 01/08/2015 Problem list inspector metal can utility Cerebral contusion without loss of consciousness, unspecified laterality, sequela (HCC) 10/21/2014 Transient alteration of awareness 10/17/2014 Head contusion, initial encounter 10/17/2014 Note Last Updated: 01/08/2015 Problem list inspector metal can utility Left ankle pain 07/30/2014 Squamous carcinoma [...] | | | | | | [place] [address] | | | | | | [phone] | | | | | | | [...] 1.001 - 1.030 | | | | [place], | | | | | | UA, [...]
--- OUTSIDE RECORDS SUMMARY | ~2019-09-12 | XMS | Encounter Summary ---
Demographics + + + | Address | [address] | | | [place] [address] | + + + | Home Phone [...] + | Author | [facility] | | | and Clarkeana | + + + | Organization | [facility] | [...] | | | | | [place] [address] | | + + + + + | Valentín Saleh | ECON | [address] | | | | | [place] [address] | | + + + + + | Roberto Carlos Lennon | LEVI | Unknown | | + + + + + Care Team Providers + +------+ + | Care Vendor Analyst Name | Role | Phone | [...] + + | 01/20/ | Documentati | [facility] | Cheyenne Caballero, | No Show | | 2014 | on | MED CTR THERAPY PT | DATA PROCESSING OPERATOR [address] | | | | | OP [address] | [place] | | | | | [place] | [address] | | | | | [address] | | | | | | [phone] | | | +--------+ + + + [...] Caballero PTA - [facility]/20/2015 10[facility] [address] [place] [address] Cancellation/No Show Date: 01/20/2015 Patient Information Patient [...] | | | | | | [place] [address] | | | | | | [phone] | | | | | | | [...]
--- OUTSIDE RECORDS SUMMARY | ~2019-09-12 | XMS | Encounter Summary ---
Demographics + + + | Address | [address] | | | [place] [address] | + + + | Home Phone [...] Author | [facility] | | | and Clarkeana | + + + | Organization | [facility] | [...] | | | | | [place] [address] | | + + + + + | Valentín Saleh | ECON | [address] | | | | | [place] [address] | | + + + + + | Roberto Carlos Lennon | LEVI | [place] | | + + + + + Care Team Providers + +------+ + | Care Hose Wrapper Name | Role | Phone | + +------+ + PCP | Unavailable | + +------+ + Encounter Details +--------+ + + + + | Date | Type | Department | Care Team | Description | +--------+ + + + + | 05/17/ | Hospital | [facility] | | | | 2001 | Encounter | MED CTR MP INTRA OP | | | | | | [address] | | | | | | [place] | | | | | | [address] | | | | | | [phone] | | | +--------+ + + + [...] | | | | | | [place] [address] | | | | | | [phone] | | | | | | | | +--------+---------+ + + + documented as of this encounter Visit Diagnoses Not on filedocumented in this encounter"
--- OUTSIDE RECORDS SUMMARY | ~2019-09-12 | XMS | Encounter Summary ---
Demographics + + + | Address | [address] | | | [place] [address] | + + + | Home Phone [...] | Author | [facility] | | | and Clarkeana | + + + | Organization | [facility] | [...] | | | | | [place] [address] | | + + + + + | Valentín Saleh | ECON | [address] | | | | | [place] [address] | | + + + + + | Roberto Carlos Lennon | LEVI | Unknown | | + + + + + Care Team Providers + +------+ + | Care Wedding Transportation Driver Name | Role | Phone | [...] | | | osteoarthrit | [place] | [facility] | | | | | is of left | [place] | [address] | | | | | ankle | [address] | ST | | | | | | Phone: | ANTOINE | | | | | | [phone] | [place], [place] | | | | | | Fax: | [address] | | | | | | [phone] | Phone: | | | | | | | [phone] | | | | | | | Fax: | | | | | | | [phone] | +--------+ + + + + + Reason for Visit + + + | Reason | Comments | + + + | Diabetes | | + + + | Hypertension | | + + + Encounter Details +--------+---------+ + + + | Date | Type | Department | Care Team | Description | +--------+---------+ + + + | 03/21/ | Office | [facility] | Francois Pascal, | 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 She declines customer care specialist. Carmelo blunt follows with Dr Bolton for [...] VSD Father 50 Pneumonia Family Hx of Itawamba's chorea Sister and 2 brothers: CAD, Itawamba's Disease to [place] - with 2 Healthy Children No kidney disease in family. Social History: Reviewed history from 08/11/2011 and no changes required: Born in [facility] for [facility] years. and Remarried [...] | | | | | | [place] [address] | | | | | | [phone] | | | | | | | [...] - 1.030 | [facility] | | | Advance, | | | [facility] | | [...] Urine | | 1.0 E.U./dL | [facility] | | | | | [...] | + + + + + | [facility] | [address] | [place] | [phone] | | [facility] | | [address] | | | - LABORATORY | | [...] + | [facility] | [address] | [place] | [phone] | | [facility] | | [address] | | | - LABORATORY | | [...] [address] | [place] | [phone] | | [facility] | | [address] | | | - LABORATORY | | [...] [address] | [place] | [phone] | | [facility] | | [address] | | | - LABORATORY | | [...] 1.39 (H) | 0.60 - 1.30 | [facility] | | | | | mg/dL | [facility] | | | | | MEDICAL | | | | | | CENTER - | | | | | | LABORATORY | | + + + + + + | eGFR if not | 36 (L)Comment: | >=60 | [facility] | | | | GLOMERULAR FILTRATION | mL/min/1.73m2 | [facility] | | | MONEGASQUE | RATE,ESTIMATED | | MEDICAL | | | | mL/min/1.17p8Ngla than | | CENTER - | | [...] ST. | [address] | [place] | [phone] | | [facility] | | [address] | | | - LABORATORY | | [...]
--- OUTSIDE RECORDS SUMMARY | ~2019-09-12 | XMS | Encounter Summary ---
Demographics + + + | Address | [address] | | | [place] [address] | + + + | Home Phone [...] Author | [facility] | | | and Clarkeana | + + + | Organization | [facility] | | [...] | | | | | [place] [address] | | + + + + + | Valentín Saleh | ECON | [address] | | | | | [place] [address] | | + + + + + | Roberto Carlos Lennon | LEVI | Unknown | | + + + + + Care Team Providers + +------+ + | Care Last Dipper Name | Role | Phone | + [...] + | 11/23/ | Refill | [facility] | Stephenie Paul, | Medication Refill | | 2014 | | CARDIOLOGY [address] | MD [address] [place] | | | | | [place], | [place], | | | | | [place] [address] | [place] [address] | | | | | [phone] | [phone] | | | | | | | [...] | | | | | | [place] [address] | | | | | | [phone] | | | | | | | | +--------+---------+ + + + documented as of this encounter Visit Diagnoses Not on filedocumented in this encounter"
--- OUTSIDE RECORDS SUMMARY | ~2019-09-12 | XMS | Encounter Summary ---
Demographics + + + | Address | [address] | | | [place] [address] | + + + | Home Phone [...] | [facility] | | | and Clarkeana | + + + | Organization | [facility] | [...] | | | | | [place] [address] | | + + + + + | Valentín Saleh | ECON | [address] | | | | | [place] [address] | | + + + + + | Roberto Carlos Lennon | LEVI | Unknown | | + + + + + Care Team Providers + +------+ + | Care Seat Nailer Name | Role | Phone | + [...] | instability | [address] | [place] | | | | n | [address] | [address] | [place], | | | | | (ICD-10-CM) | [place] | [place] [address] | | | | | - 781.2 | [place] | Phone: | | | | | (ICD-9-CM) - | [address] | [phone] | | | | | Gait | Phone: | Fax: | | | | | instability | [phone] | [phone] | | | | | Procedures | Fax: | | | | | | pt eval | [phone] | | +--------+ + + + + + Encounter Details +--------+---------+ + + + | Date | Type | Department | Care Team | Description | +--------+---------+ + + + | 01/20/ | Office | [facility] | Francois Pascal, | Posture imbalance | | 2015 | Visit | MED CTR THERAPY PT | MD [address] | (Primary Dx); | | | | OP [address] | [address] [place], | Impaired functional | | | | [place] | [place] [address] | mobility, balance, | | | | [address] | [phone] | gait, and endurance; | | | | [phone] | | Left ankle pain | | | | | Cheyenne Caballero, | | | | | | METAL MACHINE OPERATOR [address] | | | | | | [place] | | | | | | [address] | | | | | | | [...] of this encounter Progress Notes Cheyenne Caballero, METAL MACHINE OPERATOR - 01/20/2015 1:48 PM PSTFormatting of this note might be different f rom the original. [facility] CTR THERAPY PT OP [address] [place] [address] Physical Therapy Daily Treatment Note Date: 01/20/2015 [...] 2019 | Visit | | MD [facility] | | | | | | [place], | | | | | | [place] [address] | | | | | | [phone] | | | | | | | [...]
--- OUTSIDE RECORDS SUMMARY | ~2019-09-12 | XMS | Encounter Summary ---
Demographics + + + | Address | [address] | | | [place] [address] | + + + | Home Phone [...] Author | [facility] | | | and Clarkeana | + + + | Organization | [facility] | [...] | | | | | [place] [address] | | + + + + + | Valentín Saleh | ECON | [address] | | | | | [place] [address] | | + + + + + | Roberto Carlos Lennon | LEVI | [place] | | + + + + + Care Team Providers + +------+ + | Care Rehanger Name | Role | Phone | + +------+ + PCP | Unavailable | + +------+ + Encounter Details +--------+ + + + + | Date | Type | Department | Care Team | Description | +--------+ + + + + | 03/24/ | Hospital | [facility] | Francois Pascal, | | | 2009 | Encounter | MED CTR XRAY [address] | [address] | | | | | [place] | [address] [place], | | | | | [place] [address] | [place] [address] | | | | | [phone] | [phone] | | | | | | | [...] | | | | | | [place] [address] | | | | | | [phone] | | | | | | | | +--------+---------+ + + + documented as of this encounter Visit Diagnoses Not on filedocumented in this encounter"
--- OUTSIDE RECORDS SUMMARY | ~2019-09-12 | XMS | Encounter Summary ---
Demographics + + + | Address | [address] | | | [place] [address] | + + + | Home Phone [...] + | Author | [facility] | | | and Clarkeana | + + + | Organization | [facility] | [...] | | | | | [place] [address] | | + + + + + | Valentín Saleh | ECON | [address] | | | | | [place] [address] | | + + + + + | Roberto Carlos Lennon | LEVI | Unknown | | + + + + + Care Team Providers + +------+ + | Care Medical Accounts Receivable Specialist Name | Role | Phone | + +------+ + | Francois Pascal MD | PCP | | + +------+ + Encounter Details +--------+---------+ + + + | Date | Type | Department | Care Team | Description | +--------+---------+ + + + | 02/02/ | Office | [facility] | Stephenie Paul, | Coronary artery | | 2018 | Visit | CARDIOLOGY [address] | [address] [place] | disease involving | | | | [place], | [place], | um[place]umi[place] coronary | | | | [place] [address] | [place] [address] | artery of umkumiut | | | | [phone] | [phone] | heart without angina | | | [...] ce that time, patient been living at [facility]. 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 0 Xyizqmc-Tlauiudty-Bloutvo D (CALCIUM 500 PO) Take 1 tablet [...] reviewed during visit today primarily from [facility]: LIPID Lab Results Component Value Date [...] Extensive history of coronary artery disease involving umkumiut coronary artery of umk[place] heart without angina pectoris: A. Status post [...] She is in a class I of [place] [employer] functional class. There is bilateral 2+ trace leg swelling retention on physical examinatio n. 2. Paroxysmal atrial fibrillation: A. Risk of stroke is reviewed today; her risk factors are Hx of HTN (1), Age >/= 75 y.o.(2 ), Diabetes (1) and Female Gender (1), giving her a VHK5IH5-XZZm of 5, estimating a 5=6.7% r isk [...] reviewed and edited this note. Marisabel Mireles, Cyber Threat Analyst 02/02/2018 I, Stephenie Paul MD, personally performed the services described in this documentation, as scribed in my presence and it is both accurate and complete. Marisabel Mireles, Cyber Threat Analyst 13:41 Electronically signed by: Stephenie Paul MD [facility] 02/02/2018 Portions of this chart may have been created with Next[employer] voice recognition software. Occasi onal wrong-word or [...] | Visit | | MD Bob Vasquez [place] | | | | | | [place], | | | | | | [place] [address] | | | | | | [phone] | | | | | | | | +--------+---------+ + + + documented as of this encounter Visit Diagnoses + + | Diagnosis | + + | Coronary artery disease involving umkumiut coronary artery of umkumiut heart without | | angina pectoris - Primary | + + documented in this encounter
--- OUTSIDE RECORDS SUMMARY | ~2019-09-12 | XMS | Encounter Summary ---
Demographics + + + | Address | [address] | | | [place] [address] | + + + | Home Phone [...] | Author | [facility] | | | and Clarkeana | + + + | Organization | [facility] | [...] | | | | | [place] [address] | | + + + + + | Valentín Saleh | ECON | [address] | | | | | [place] [address] | | + + + + + | Roberto Carlos Lennon | LEVI | Unknown | | + + + + + Care Team Providers + +------+ + | Care Parks And Recreation Manager Name | Role | Phone | + +------+ + | Francois Pascal MD | PCP | | + +------+ + Encounter Details +--------+ + + + + | Date | Type | Department | Care Team | Description | +--------+ + + + + | 03/06/ | Hospital | [facility] | Francois Pascal, | Visit for screening | | 2015 | Encounter | MED CTR MAMMOGRAPHY | [address] | mammogram | | | | [address] | [address] [place], | | | | | [place] | [place] [address] | | | | | [address] | [phone] | | | | | [phone] | | | +--------+ + + + [...] | | | | | | [place] [address] | | | | | | [phone] | | | | | | | [...] [address] | [place] | [phone] | | [facility] | | [address] | | | - IMAGING | | | | + + + + + documented in this encounter Visit Diagnoses + + | Diagnosis | + + | Visit for screening mammogram Other screening mammogram | + + documented in this encounter"
--- OUTSIDE RECORDS SUMMARY | ~2019-09-12 | XMS | Encounter Summary ---
Demographics + + + | Address | [address] | | | [place] [address] | + + + | Home Phone [...] + | Author | [facility] | | | and Clarkeana | + + + | Organization | [facility] | [...] | | | | | [place] [address] | | + + + + + | Valentín Saleh | ECON | [address] | | | | | [place] [address] | | + + + + + | Roberto Carlos Lennon | LEVI | Unknown | | + + + + + Care Team Providers + +------+ + | Care Roll Examiner Name | Role | Phone | + +------+ + | Francois Pascal MD | PCP | | + +------+ + Encounter Details +--------+ + + + + | Date | Type | Department | Care Team | Description | +--------+ + + + + | 03/05/ | [facility] | [facility] | Francois Pascal, | | | 2012 | Encounter | MED CTR XRAY [address] | [address] | | | | | [place] | [address] [place], | | | | | [place] [address] | [place] [address] | | | | | [phone] | [phone] | | | | | | | [...] | | | | | | [place] [address] | | | | | | [phone] | | | | | | | | +--------+---------+ + + + documented as of this encounter Procedures + +--------+ + + + | Procedure Name | Priori | Date/Time | Associated Diagnosis | Comments | | | ty | | | | + +--------+ + + + | TAWNYA DIGITAL | Routin | 03/06/2013 | | Results for this | | SCREENING BILATERAL | e | 8:35 AM | | procedure are in the | | | | PST | | results section. | + +--------+ + + + documented in this encounter Results TAWNYA Digital Screening Bilateral (03/06/2013 8:35 AM PST) + + | Specimen | + + | | + + + + + | Narrative | Performed At | + + + | [facility] | [facility] | | Department [address] [place] [address] | [facility] | | [ rep ct [address]] [ rep ct [facility] | | st zip] Signed | - IMAGING | | | | | Patient Name: ALYSON LENNON Physician: | | | SIMONE.01 : 1930 Age: 82 Sex: F Unit #: [id number] | | | Exam Date: 03/05/13 Location: [facility] | | | Report #: [id number] Page: | | | %(RAD)RES..mtdd.print.filter("pg") of %(RAD) | | | RES..mtdd.print.filter("tpg") | | | | | | Accession Number: [id number] | | | DIGITAL MAMMOGRAM WITH COMPUTER ASSISTED DIAGNOSIS AND TOMOSYNTHESIS | | | CLINICAL HISTORY: SCREENING. FINDINGS: | | | Digital MLO and CC views of the breasts are compared to 2011 and | | | 2012. Breast parenchyma is of scattered density. Pattern is stable | | | with no new mass or area of architectural distortion. There are | | | benign-appearing large nena-like and vascular calcifications with no | | | suspicious or clustered microcalcifications. | | | IMPRESSION: 1. ACR BIRADS CATEGORY 2 - BENIGN. | | | RECOMMENDATIONS: Annual screening. Dictated Date/Time: | | | 03/06/2013 08:35 Transcribed Date/Time: 03/06/2013 08:40 | | | Online Editor: <<Signature on File>> | | | | | | Rafi De La Fuente MD03/06/13 1021 <Electronically signed by | | | Rafi De La Fuente MD> Rafi De La Fuente MD 03/06/13 | | | 0835 Online Editor: [employer] Zxdahpafyefld34/31/13 0840 | | | | | + + + + + + + + | Performing | Address | City/State/Zipcode | Phone Number | | Organization | | | | + + + + + | [facility] | [address] | [place] | [phone] | | [facility] | | [address] | | | - IMAGING | | | | + + + + + documented in this encounter Visit Diagnoses Not on filedocumented in this encounter
--- OUTSIDE RECORDS SUMMARY | ~2019-09-12 | XMS | Encounter Summary ---
Demographics + + + | Address | [address] | | | [place] [address] | + + + | Home Phone [...] [facility] | | | and [place]ana | + + + | Organization | [facility] | [...] | | | | | [place] [address] | | + + + + + | Valentín Saleh | ECON | [address] | | | | | [place] [address] | | + + + + + [...] + | 10/16/ | Telephone | [facility] | Francois Pascal, | Results | | 2018 | | MEDICINE [place] | [address] | | | | | [address] | [address] [place], | | | | | [place] | [place] [address] | | | | | [address] | [phone] | | | | | [phone] | | | +--------+ + + + [...] Miscellaneous Notes Telephone Encounter - [employer] - 10/16/2018 11:25 AM PDTPatient is scheduled [...] [address] | | | | | | [place], | | | | | | [place] [address] | | | | | | [phone] | | | | | | | | +--------+---------+ + + + documented as of this encounter Visit Diagnoses Not on filedocumented in this encounter"
--- OUTSIDE RECORDS SUMMARY | ~2019-09-12 | XMS | Encounter Summary ---
Demographics + + + | Address | [address] | | | [place] [address] | + + + | Home Phone [...] [facility] | | | and Clarkeana | + + + | Organization | [facility] | | [...] | | | | | [place] [address] | | + + + + + | Valentín Saleh | ECON | [address] | | | | | [place] [address] | | + + + + + | Roberto Carlos Lennon | LEVI | [place] | | + + + + + Care Team Providers + +------+ + | Care Water Pump Installer Name | Role | Phone | + +------+ + PCP | Unavailable | + +------+ + Encounter Details +--------+ + + + + | Date | Type | Department | Care Team | Description | +--------+ + + + + | 10/02/ | Hospital | [facility] | | | | 2001 | Encounter | MED CTR XRAY [address] | | | | | | [place] | | | | | | [place] [address] | | | | | | [phone] | | | +--------+ + + + [...] | | | | | | [place] [address] | | | | | | [phone] | | | | | | | | +--------+---------+ + + + documented as of this encounter Visit Diagnoses Not on filedocumented in this encounter"
--- OUTSIDE RECORDS SUMMARY | ~2019-09-12 | XMS | Encounter Summary ---
Demographics + + + | Address | [address] | | | [place] [address] | + + + | Home Phone [...] Author | [facility] | | | and Clarkeana | + + + | Organization | [facility] | [...] | | | | | [place] [address] | | + + + + + | Valentín Saleh | ECON | [address] | | | | | [place] [address] | | + + + + + | Roberto Carlos Lennon | LEVI | Unknown | | + + + + + Care Team Providers + +------+ + | Care Pearl Glue Drier Name | Role | Phone | + [...] | | MD Jennifer | [address] | | | | | Hypertension | [address] | [place], | | | | | , renal | [address] | [place] | | | | | disease, | [place], | [address] | | | | | stage 1-4 or | [place] [address] | Phone: | | | | | unspecified | Phone: | [phone] | | | | | chronic | [phone] | Fax: | | | | | kidney | Fax: | [phone] | | | | | disease | [phone] | | | | | | Essential [...] | | | | | | Complete [place] | | | | | | | ECHO HEART | | | | | | | XTHOJUNO,CO | | | | | | | MPLETE W | | | | | | | DOPPLER [place] | | | | | | | [...] | | MD Jennifer | [address] | | | | | Hypertension | [address] | [place], | | | | | , renal | [address] | [place] | | | | | disease, | [place], | [address] | | | | | stage 1-4 or | [place] [address] | Phone: | | | | | unspecified | Phone: | [phone] | | | | | chronic | [phone] | Fax: | | | | | kidney | Fax: | [phone] | | | | | disease | [phone] | | | | | | Essential [...] | | | | | | Complete [place] | | | | | | | ECHO HEART | | | | | | | XTHORACIC,CO | | | | | | | MPLETE W | | | | | | | DOPPLER [place] | | | | | | | [...] + + | 03/11/ | Hospital | [facility] | Jennifer Gillespie, | Hypertension, renal | | 2017 | Encounter | MED CTR ECHO [address] | MD [address] | disease, stage 1-4 | | | | [address] [place] | [place], | or unspecified | | | | [place] [address] | [place] [address] | chronic kidney | | | | [phone] | [phone] | disease; Essential | | | | | | hypertension with | | | | | Yue Velásquez | goal blood pressure | | | | | A, Technologist | less than 130/80; | | | | | [place], [place] | CHRONIC KIDNEY | | | | | [address] | DISEASE STAGE III | | | [...] | | 0 | | | | Wolgjkc-Kgptbckfl-Qb | mouth Daily. | | | | [...] | | | | | | disease ([facility]) | [...] | | | | | | hyperglycemia ([facility]) | [...] 12/06/ | Office | Cardiology | Jennifer Gillespie, | | | 2019 | Visit | | MD [address] | | | | | | [place], | | | | | | [place] [address] | | | | | | [phone] | | | | | | | [...] | | | TRANSTHORAC | | | [facility] | | | IC ECHO | | [...] ALYSON Room Number BRIDGET Patient Number | [facility] | | [id number] Date of Study 03/11/2016 Visit Number | - IMAGING | | [id number] Referring Physician | | | BEVERLY RODRIGUEZ Number Date of 1930 | | | Licensed Acupuncturist YUE VELÁSQUEZ, | | | [place] Age | | | 85 year(s) Interpreting BEVERLY | | | JENNIFER Leaf Blender | | | JENNIFER GILLESPIE MD Gender [...] | | | EF | | | Xowfaxtpz36% Left Ventricle Diastolic Dimension: 4.48 cm | [...] Volume: 55.29 ml | | | EF Xielnpupr13% | | | | | | Left [...] Rad Results In - 03/11/2016 12:20 PM [facility] Transthoracic Echocardiography Report | | (TTE) Demographics Patient Name RADHA MEADOWS Room Number BRIDGET Patient | | Number [id number] Date of Study 03/11/2016 Visit Number [id number] | | Referring Physician BEVERLY RODRIGUEZ Number Date of | | 1930 Licensed Acupuncturist YUE VELÁSQUEZ, | | [place] Age 85 year(s) Interpreting | | BEVERLY RODRIGUEZ Leaf Blender JENNIFER GILLESPIE, | | Gender Female NurseProcedureType [...] [place] Volume: 55.29 | | ml EF Niravogrj88% Left Ventricle | | Diastolic Dimension: 4.48 [...] [place] Volume: 55.29 ml | | EF Nmyuomsyn94% | | | | Left Ventricle | [...] | [facility] | [address] | [place] | [phone] | | [facility] | | [address] | | | - IMAGING | | [...]
--- OUTSIDE RECORDS SUMMARY | ~2019-09-12 | XMS | Encounter Summary ---
Demographics + + + | Address | [address] | | | [place] [address] | + + + | Home Phone [...] | Author | [facility] | | | and [place] | + + + | Organization | [facility] [...] | | | | | [place] [address] | | + + + + + | Valentín Saleh | ECON | [address] | | | | | [place] [address] | | + + + + + | Roberto Carlos Lennon | LEVI | Unknown | | + + + + + Care Team Providers + +------+ + | Care Stitcher Feeder Name | Role | Phone | + [...] | instability | [address] | [place] | | | | [address] | [address] | [place], | | | | | (ICD-10-CM) | [place] | [place] [address] | | | | | - 781[address] | [place] | Phone: | | | | | (ICD-9-CM) - | [address] | [phone] | | | | | Gait | Phone: | Fax: | | | | | instability | [phone] | [phone] | | | | | Procedures | Fax: | | | | | | pt eval | [phone] | | +--------+ + + + + + Encounter Details +--------+---------+ + + + | Date | Type | Department | Care Team | Description | +--------+---------+ + + + | 02/19/ | Office | [facility] | Francois Pascal, | Posture imbalance | | 2015 | Visit | MED CTR THERAPY PT | MD [address] | (Primary Dx); | | | | OP [address] | [address] [place], | Impaired functional | | | | [place] | [place] [address] | mobility, balance, | | | | [address] | [phone] | gait, and endurance; | | | | [phone] | | Left ankle pain | | | | | Cheyenne Caballero, | | | | | | SPECIAL PROJECTS MANAGER [address] | | | | | | [place] | | | | | | [address] | | | | | | | [...] of this encounter Progress Notes Cheyenne Caballero, SPECIAL PROJECTS MANAGER - 02/19/2015 8:43 AM PSTFormatting of this note might be different f rom the original. [facility] CTR THERAPY PT OP [address] [place] [address] Physical Therapy Daily Treatment Note Date: 02/19/2015 [...] Reports her ankle is hurting more today. [place] fine yesterday. Feels it may be the [...] | | | | | | [place] [address] | | | | | | [phone] | | | | | | | [...]
--- OUTSIDE RECORDS SUMMARY | ~2019-09-12 | XMS | Encounter Summary ---
Demographics + + + | Address | [address] | | | [place] [address] | + + + | Home Phone [...] | Author | [facility] | | | and [place] | + + + | Organization | [facility] | [...] | | | | | [place] [address] | | + + + + + | Valentín Saleh | ECON | [address] | | | | | [place] [address] | | + + + + + | Roberto Carlos Lennon | LEVI | Unknown | | + + + + + Care Team Providers + +------+ + | Care Vegetable Specker Name | Role | Phone | + [...] | | | | | | [place] [address] | | | | | | [phone] | | | +--------+ + + + [...] | | | | | | [place] [address] | | | | | | [phone] | | | | | | | | +--------+---------+ + + + documented as of this encounter Visit Diagnoses Not on filedocumented in this encounter"
--- OUTSIDE RECORDS SUMMARY | ~2019-09-12 | XMS | Encounter Summary ---
Demographics + + + | Address | [address] | | | [place] [address] | + + + | Home Phone [...] Author | [facility] | | | and [place] | + + + | Organization | [facility] [...] | | | | | [place] [address] | | + + + + + | Valentín Saleh | ECON | [address] | | | | | [place] [address] | | + + + + + | Roberto Carlos Lennon | LEVI | [place] | | + + + + + Care Team Providers + +------+ + | Care President Ceo & Founder Name | Role | Phone | + +------+ + PCP | Unavailable | + +------+ + Encounter Details +--------+ + + + + | Date | Type | Department | Care Team | Description | +--------+ + + + + | 01/25/ | Hospital | [facility] | Francois Pascal, | | | 2007 | Encounter | MED CTR LABORATORY | [address] | | | | | [address] [place] | [address] [place], | | | | | [place] | [place] [address] | | | | | [address] | [phone] | | | | | [phone] | | | +--------+ + + + [...] | | | | | | [place] [address] | | | | | | [phone] | | | | | | | | +--------+---------+ + + + documented as of this encounter Visit Diagnoses Not on filedocumented in this encounter"
--- OUTSIDE RECORDS SUMMARY | ~2019-09-12 | XMS | Encounter Summary ---
Demographics + + + | Address | [address] | | | [place] [address] | + + + | Home Phone [...] | Author | [facility] | | | and [place] | + + + | Organization | [facility] [...] | | | | | [place] [address] | | + + + + + | Valentín Saleh | ECON | [address] | | | | | [place] [address] | | + + + + + | Roberto Carlos Lennon | LEVI | Unknown | | + + + + + Care Team Providers + +------+ + | Care Truck Body Repairer Name | Role | Phone | + +------+ + | Francois Pascal MD | PCP | | + +------+ + Encounter Details +--------+ + + + + | Date | Type | Department | Care Team | Description | +--------+ + + + + | 07/30/ | Orders Only | [facility] [place] | Lashawn Wyman, | Left ankle pain | | 2014 | | PHYSIATRY [address] | FIELD SERVICE TECHNICIAN POULTRY | (Primary Dx) | | | | [address] | | | | | | [place] | | | | | | [address] | | | | | | [phone] | | | +--------+ + + + [...] [address] | | | | | | [place], | | | | | | [place] [id number] | | | | | | [phone] | | | | | | | | +--------+---------+ + + + documented as of this encounter Results FL Asp Inj Intermediate Joint Left (08/02/2014 10:07 AM PDT) + + | Specimen | + + | | + + + + + | Narrative | Performed At | + + + | 08/02/2014 LEFT INTRAARTICULAR ANKLE INJECTION CLINICAL | [facility] | | HISTORY: CHRONIC LEFT ANKLE PAIN AND POST-TRAUMATIC ARTHRITIS Alyson | [facility] | | Autumn Lennon presents to the fluoroscopy suite for a [facility] | | fluoroscopically-guided left intraarticular ankle [...] + | [facility] | [address] | [place], [place] | [phone] | | [facility] | | [address] | | | - IMAGING | | | | + + + + + documented in this encounter Visit Diagnoses + + | Diagnosis | + + | Left ankle pain - Primary Pain in joint, ankle and foot | + + documented in this encounter"
--- OUTSIDE RECORDS SUMMARY | ~2019-09-12 | XMS | Encounter Summary ---
Demographics + + + | Address | [address] | | | [place] [address] | + + + | Home Phone [...] | Author | [facility] | | | and [place] | + + + | Organization | [facility] | [...] | | | | | [place] [address] | | + + + + + | Valentín Saleh | ECON | [address] | | | | | [place] [address] | | + + + + + | Roberto Carlos Lennon | LEVI | [place] | | + + + + + Care Team Providers + +------+ + | Care Lockstitch Machine Operator Name | Role | Phone | + +------+ + PCP | Unavailable | + +------+ + Encounter Details +--------+ + + + + | Date | Type | Department | Care Team | Description | +--------+ + + + + | 12/17/ | Hospital | [facility] | Stephenie Paul, | | | 2010 | Encounter | MED CTR LABORATORY | [address] | | | | | [address] [place] | [facility], | | | | | [place], [place] | [place] [address] | | | | | [address] | [phone] | | | | | [phone] | | | +--------+ + + + [...] 5 tablets by | | 0 | 04/29/20 | | | mg tablet | mouth [...] | 2019 | Visit | | [address] | | | | | | [place], | | | | | | [place] [address] | | | | | | [phone] | | | | | | | [...] + | [facility] | [address] | [place], [place] | [phone] | | [facility] | | [address] | | | - LABORATORY | | | | + + + + + | [facility] | [address] | [place] | | | [facility] | | [address] | | | - LABORATORY [...] (H)Comment: | 4.3 - 5.8 % | [facility] | | | A1c | DIABETIC PATIENT RANGES: | | [facility] | | | | 6.2-7.0% [...] [address] | [place] | [phone] | | [facility] | | [address] | | | - LABORATORY | | | | + + + + + | [facility] | [address] | [place] | | | [facility] | | [address], [facility] | | | - LABORATORY [...] + | [facility] | [address] | [place], [place] | [phone] | | [facility] | | [address] | | | - LABORATORY | | | | + + + + + | [facility] | [address] | [place], [place] | | | [facility] | | [address] [place] [address] | | | - LABORATORY | | [...] [address] | [place] | [phone] | | [facility] | | [address] | | | - LABORATORY | | | | + + + + + | [facility] [address] | [address] | [place] | | | [facility] | | [address] | | | - LABORATORY | | | | + + + + + documented in this encounter Visit Diagnoses Not on filedocumented in this encounter"
--- OUTSIDE RECORDS SUMMARY | ~2019-09-12 | XMS | Encounter Summary ---
Demographics + + + | Address | [address] | | | [place] [address] | + + + | Home Phone [...] Author | [facility] | | | and [place] | + + + | Organization | [facility] | | | and [...] | | | | | [place] [address] | | + + + + + | Valentín Saleh | ECON | [address] | | | | | [place] [address] | | + + + + + | Roberto Carlos Lennon | LEVI | Unknown | | + + + + + Care Team Providers + +------+ + | Care Sign Manufacturer Name | Role | Phone | + [...] | 12/29/ | Refill | [facility] | Francois Pascal, | Medication Refill | | 2012 | | MEDICINE [place] | [address] | | | | | [address] | [address] [place], | | | | | [place] | [place] [address] | | | | | [address] | [phone] | | | | | [phone] | | | +--------+--------+ + + + [...] | | | | | | [place] [address] | | | | | | [phone] | | | | | | | | +--------+---------+ + + + documented as of this encounter Visit Diagnoses Not on filedocumented in this encounter"
--- OUTSIDE RECORDS SUMMARY | ~2019-09-12 | XMS | Encounter Summary ---
Demographics + + + | Address | [address] | | | [place] [address] | + + + | Home Phone [...] Author | [facility] | | | and [place] | + + + | Organization | [facility] | [...] | | | | | [place] [address] | | + + + + + | Valentín Saleh | ECON | [address] | | | | | [place] [address] | | + + + + + | Roberto Carlos Lennon | LEVI | Unknown | | + + + + + Care Team Providers + +------+ + | Care Certified Wellness Program Coordinator Name | Role | Phone | [...] | MEDICINE [address] | [address] | | | | | [place], | [address] [place], | | | | | [place] [address] | [place] [address] | | | | | [phone] | [phone] | | | | | | | [...] PM PDTFaxed form Dr. Pascal signed to [employer]. elephone Encounter - Airam Menjivar RN - 11/17/2012 9:04 AM PDTPatient returned call and states she gets her meds from [employer], patient tests her blood 4 times per [...] | | | | | | [place] [address] | | | | | | [phone] | | | | | | | | +--------+---------+ + + + documented as of this encounter Visit Diagnoses Not on filedocumented in this encounter"
--- OUTSIDE RECORDS SUMMARY | ~2019-09-12 | XMS | Encounter Summary ---
Demographics + + + | Address | [address] | | | [place] [address] | + + + | Home Phone [...] | [facility] | | | and [place] | + + + | Organization | [facility] | | [...] | | | | | [place] [address] | | + + + + + | Valentín Saleh | ECON | [address] | | | | | [place] [address] | | + + + + + | Roberto Carlos Lennon | LEVI | Unknown | | + + + + + Care Team Providers + +------+ + | Care Recordist Name | Role | Phone | + [...] [address] | [address] [facility] | (MODERATE) (Primary | | | | [place], [place] | [address] [place], [place] | Dx); Vitamin D | | | | [address] | [address] | deficiency | | | | [phone] | | | +--------+ + + + [...] | | | | | | [place] [address] | | | | | | [phone] | | | | | | | [...] [address] | [place] | [phone] | | [facility] | | [address] | | | - LABORATORY | | [...] [address] | [place] | [phone] | | [facility] | | [address] | | | - LABORATORY | | [...] | | | | | mL/min/1.73m2 | [facility] | | | [facility] | | | MEDICAL | | | [...] [address] | [place] | [phone] | | [facility] | | [address] | | | - LABORATORY | | [...]
--- OUTSIDE RECORDS SUMMARY | ~2019-09-12 | XMS | Encounter Summary ---
Demographics + + + | Address | [address] | | | [place] [address] | + + + | Home Phone [...] Author | [facility] | | | and [place] | + + + | Organization | [facility] | | [...] | | | | | [place] [address] | | + + + + + | Valentín Saleh | ECON | [address] | | | | | [place] [address] | | + + + + + | Roberto Carlos Lennon | LEVI | Unknown | | + + + + + Care Team Providers + +------+ + | Care Consultants Intern Name | Role | Phone | [...] | 08/18/ | Refill | [facility] [place] [facility] | Francois Pascal, | Medication Refill | | 2012 | | MEDICINE [place] | [address] | | | | | [address] | [address] [place], | | | | | [place] | [place] [address] | | | | | [address] | [phone] | | | | | [phone] | | | +--------+--------+ + + + [...] | | | | | | [place] [address] | | | | | | [phone] | | | | | | | | +--------+---------+ + + + documented as of this encounter Visit Diagnoses Not on filedocumented in this encounter"
--- OUTSIDE RECORDS SUMMARY | ~2019-09-12 | XMS | Encounter Summary ---
Demographics + + + | Address | [address] | | | [place] [address] | + + + | Home Phone [...] | Author | [facility] | | | and [place] | + + + | Organization | [facility] [...] | | | | | [place] [address] | | + + + + + | Valentín Saleh | ECON | [address] | | | | | [place] [address] | | + + + + + | Roberto Carlos Lennon | LEVI | Unknown | | + + + + + Care Team Providers + +------+ + | Care Circuit Tester Name | Role | Phone | [...] + + | 11/25/ | Refill | [facility] [place] [facility] | Misael Haynes, | Medication Refill | | 2014 | | MEDICINE [facility] [address] | [address] | | | | | [address]VE [place], | [place] | | | | | [place] [address] | [address] | | | | | [phone] | | | +--------+--------+ + + + [...] | | | | | | [place] [address] | | | | | | [phone] | | | | | | | [...]
--- OUTSIDE RECORDS SUMMARY | ~2019-09-12 | XMS | Encounter Summary ---
Demographics + + + | Address | [address] | | | [place] [address] | + + + | Home Phone [...] + | Author | [facility] | | | and [place] | + + + | Organization | [facility] | | | and [place] | + + + | Address | Unknown | + + + | Phone | Unavailable | + + + Support + + + + + | Name | Relationship | Address | Phone | + + + + + | Sigrid eLnnon | ECON | [address] | | | | | [place] [address] | | + + + + + | Valentín Saleh | ECON | [address] | | | | | [place] [address] | | + + + + + | Roberto Carlos Lennon | LEVI | Unknown | | + + + + + Care Team Providers + +------+ + | Care Fur Blender Name | Role | Phone | [...] Refill | | 2013 | | MEDICINE [place] | [address] | | | | | [address] | [address] [place], | | | | | [place] | [place] [address] | | | | | [address] | [phone] | | | | | [phone] | | | +--------+--------+ + + + [...] | | | | | | [place] [address] | | | | | | [phone] | | | | | | | | +--------+---------+ + + + documented as of this encounter Visit Diagnoses Not on filedocumented in this encounter"
--- OUTSIDE RECORDS SUMMARY | ~2019-09-12 | XMS | Encounter Summary ---
Demographics + + + | Address | [address] | | | [place] [address] | + + + | Home Phone [...] | Author | [facility] | | | and [place] | + + + | Organization | [facility] [...] | | | | | [place] [address] | | + + + + + | Valentín Saleh | ECON | [address] | | | | | [place] [address] | | + + + + + | Roberto Carlos Lennon | LEVI | [place] | | + + + + + Care Team Providers + +------+ + | Care School Speech Therapist Name | Role | Phone | + +------+ + PCP | Unavailable | + +------+ + Encounter Details +--------+ + + + + | Date | Type | Department | Care Team | Description | +--------+ + + + + | 05/19/ | Hospital | [facility] | Glenn Miramontes | | | 2010 | Encounter | MED CTR XRAY [address] | | | | | [place] | [place], [place] | | | | | [place] [address] | [address] | | | | | [phone] | | | +--------+ + + + [...] | | | | | | [place] [address] | | | | | | [phone] | | | | | | | [...] Performed At | + + + | [facility] Department | [facility] | | [address], [facility] | [facility] | | PROCEDURE: LEFT SUBTALAR JOINT | [...] Transcribed Date/Time: 05/20/2010 00:40 | | | Applications Packager: <Electronically Signed by Glenn Richards | | | MD Kulwinder> 06/04/101922 | | + + + + + | Procedure Note | + + | Al, Taras Conversion - 04/13/2013 2:27 PM [facility] | | Diagnostic Imaging Department [address] [place] [address] | | PROCEDURE: LEFT SUBTALAR JOINT INJECTION [...] 17:41 | | Transcribed Date/Time: 05/20/2010 00:40 Applications Packager: <Electronically Signed | | by Glenn Miramontes [...] 17:41 | |Transcribed Date/Time: 05/20/2010 00:40 | |Applications Packager: | |<Electronically Signed by Glenn Miramontes MD> [...]
--- OUTSIDE RECORDS SUMMARY | ~2019-09-12 | XMS | Encounter Summary ---
Demographics + + + | Address | [address] | | | [place] [address] | + + + | Home Phone [...] + | Author | [facility] | | | and [place] | + + + | Organization | [facility] | | | and [place] | + + + | Address | Unknown | + + + | Phone | Unavailable | + + + Support + + + + + | Name | Relationship | Address | Phone | + + + + + | Sigrid Lennon | ECON | [address] | | | | | [place] [address] | | + + + + + | Valentín Saleh | ECON | [address] | | | | | [place] [address] | | + + + + + | Roberto Carlos Lennon | LEVI | Unknown | | + + + + + Care Team Providers + +------+ + | Care Landfill Attendant Name | Role | Phone | [...] | | Gait | [place] | [address] Phone: | | | | | instability | [address] | [phone] | | | | | Procedures | Phone: | Fax: | | | | | [facility] | [phone] | [phone] | | | | | TREATMENT 45 | Fax: | | | | | | | [phone] | | +--------+--------+ + + + + Encounter Details +--------+---------+ + + + | Date | Type | Department | Care Team | Description | +--------+---------+ + + + | 03/10/ | Office | [facility] | Francois Pascal, | Posture imbalance | | 2016 | Visit | MED CTR THERAPY PT | MD [address] | (Primary Dx); | | | | OP [address] | [address] [place], | Impaired functional | | | | [place], [place] | [place] [address] | mobility, balance, | | | | [address] | [phone] | gait, and endurance; | | | | [phone] | | Left ankle pain | | | | | Cheyenne Caballero, | | | | | | CONVEYOR WEIGHER OPERATOR [address] | | | | | | [place], [place] | | | | | | [address] | | | | | | | [...] of this encounter Progress Notes Cheyenne Caballero, CONVEYOR WEIGHER OPERATOR - 03/11/2015 7:39 AM PSTFormatting of this note might be different f rom the original. [facility] CTR THERAPY PT OP [address] [place] [address] Physical Therapy Daily Treatment Note Date: 03/10/2015 Patient Information Patient Name: Alyson Lennon Date of : 1930 Age: 84 y.o. Encounter Diagnoses Code Name Primary? R29.3 Posture imbalance Yes Z74.09 Impaired functional mobility, balance, gait, and endurance M25.572 Left ankle pain Date of Onset: 10/24/2014 Referring Provider: Francois Pascal MD Rehab Precautions Office Visit from 12/24/2014 in [facility] CTR THERAPY PT OP Rehab Precautions [...] | | | | | | [place] [address] | | | | | | [phone] | | | | | | | [...]
--- OUTSIDE RECORDS SUMMARY | ~2019-09-12 | XMS | Encounter Summary ---
Demographics + + + | Address | [address] | | | [place] [address] | + + + | Home Phone [...] | Author | [facility] | | | and [place] | + + + | Organization | [facility] | | [...] | | | | | [place] [address] | | + + + + + | Valentín Saleh | ECON | [address] | | | | | [place] [address] | | + + + + + | Roberto Carlos Lennon | LEVI | Unknown | | + + + + + Care Team Providers + +------+ + | Care Termite Control Representative Name | Role | Phone | + +------+ + | Francois Pascal MD | PCP | | + +------+ + Reason for Visit + +--------+ + | Reason | Onset | Comments | | | Date | | + +--------+ + | Medication Refill | 02/01/ | | | | 2015 | | + +--------+ + Encounter Details +--------+--------+ + + + | Date | Type | Department | Care Team | Description | +--------+--------+ + + + | 02/01/ | Refill | [facility] [place] [facility] | Francois Pascal, | Medication Refill | | 2015 | | MEDICINE [address] | [address] | | | | | [place], | [address] [place], | | | | | [place] [address] | [place] [address] | | | | | [phone] | [phone] | | | | | | | [...] Telephone Encounter - Ameena Coleman RN - 02/02/2016 5:14 PM PSTPatient notified she is due for labs prior to filling the Methotrexate documented in this encounter Plan of Treatment +--------+---------+ + + + | Date | Type | Specialty | Care Team | Description | +--------+---------+ + + + | 12/06/ | Office | Cardiology | Stephenie Paul, | | | 2019 | Visit | | MD [address] | | | | | | [place], | | | | | | [place] [address] | | | | | | [phone] | | | | | | | | +--------+---------+ + + + documented as of this encounter Visit Diagnoses Not on filedocumented in this encounter"
--- OUTSIDE RECORDS SUMMARY | ~2019-09-12 | XMS | Encounter Summary ---
Demographics + + + | Address | [address] | | | [place] [address] | + + + | Home Phone [...] + | Author | [facility] | | | and Clarkeana | + + + | Organization | [facility] | | [...] | | | | | [place] [address] | | + + + + + | Valentín Saleh | ECON | [phone] | | | | | [place] [address] | | + + + + + | Roberto Carlos Lennon | LEVI | Unknown | | + + + + + Care Team Providers + +------+ + | Care Carpet Finishing Supervisor Name | Role | Phone | + +------+ + | Francois Pascal MD | PCP | | + +------+ + Encounter Details +--------+ + + + + | Date | Type | Department | Care Team | Description | +--------+ + + + + | 07/16/ | Hospital | [facility] | Francois Pascal, | Essential | | 2016 | Encounter | MED CTR LABORATORY | [address] | hypertension; | | | | [address] [place] | [address], | Diabetes mellitus | | | | [place], [place] | [place] [address] | due to underlying | | | | [address] | [phone] | condition with | | | | [phone] | | hyperglycemia (HCC); | | | [...] 50 mL | 6 | 11/26/19 | 06/06/201 | | injection | BEDTIME | | [...] | | | | | | [place] [address] | | | | | | [phone] | | | | | | | [...] 3.5 | 2.5 - 4.6 mg/dL | [facility] [...] [address] | [place] | [phone] | | [facility] | | [address] | | | - LABORATORY | | [...] + | [facility] | [address] | [place] | [phone] | | [facility] | | [address] | | | - LABORATORY | | [...] not | 42 (L)Comment: | >=60 | [facility] | | | | GLOMERULAR FILTRATION | mL/min/1.73m2 | [facility] | | | NAMIBIAN | RATE,ESTIMATED | | MEDICAL | | | | mL/min/1.75l4Gayc than | | CENTER - | | [...] | 9.6 | 8.3 - 10.5 | [facility] | | | | | mg/dL | [facility] | | | | | | MEDICAL | | | | | | CENTER - | | | | | | LABORATORY | | + + + + + + | Albumin | 3.6 | 3.2 - 5.0 g/dL | [facility] [...] [address] | [place] | [phone] | | [facility] | | [address] | | | - LABORATORY | | [...] [address] | [place] | [phone] | | [facility] | | [address] | | | - LABORATORY | | [...]
--- OUTSIDE RECORDS SUMMARY | ~2019-09-12 | XMS | Encounter Summary ---
Demographics + + + | Address | [address] | | | [place] [address] | + + + | Home Phone [...] Author | [facility] | | | and Clarkeana | + + + | Organization | [facility] | [...] | | | | | [place] [address] | | + + + + + | Valentín Saleh | ECON | [phone] | | | | | [place] [address] | | + + + + + | Roberto Carlos Lennon | LEVI | Unknown | | + + + + + Care Team Providers + +------+ + | Care Bolt Man Name | Role | Phone | [...] | 03/05/ | Refill | [facility] | Francois Pascal, | Medication Refill | | 2012 | | MEDICINE [place] | [address] | | | | | [address] | [address], | | | | | [place] | [place] [address] | | | | | [address] | [phone] | | | | | [phone] | | | +--------+--------+ + + + [...] | | | | | | [place] [address] | | | | | | [phone] | | | | | | | | +--------+---------+ + + + documented as of this encounter Visit Diagnoses Not on filedocumented in this encounter"
--- OUTSIDE RECORDS SUMMARY | ~2019-09-12 | XMS | Encounter Summary ---
Demographics + + + | Address | [address] | | | [place] [address] | + + + | Home Phone [...] Author | [facility] | | | and Clarkeana | + + + | Organization | [facility] [...] | | | | | [place] [address] | | + + + + + | Valentín Saleh | ECON | [phone] | | | | | [place] [address] | | + + + + + | Roberto Carlos Lennon | LEVI | Unknown | | + + + + + Care Team Providers + +------+ + | Care Dental Technician Instructor Name | Role | Phone | [...] + + | 11/11/ | Office | [facility] | Francois Pascal, | Primary | | 2017 | Visit | MEDICINE [address] | [address] | osteoarthritis of | | | | [address] [place] [address], | [address], | left ankle (Primary | | | | [place] [address] | [place] [address] | Dx); Impaired | | | | [phone] | [phone] | functional mobility, | | | | [...] less confused. There is no burning with [employer]. Pt denies any confusion. Her states her confusion is a little better. She seems less angry. 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 Social History: Born in [facility] for 46 years. and Remarried [...] of her without assistance. 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 I certainly think she is safe to [...] 2019 | Visit | | MD [facility] | | | | | | [place], | | | | | | [place] [address] | | | | | | [phone] | | | | | | | [...]
--- OUTSIDE RECORDS SUMMARY | ~2019-09-12 | XMS | Encounter Summary ---
Demographics + + + | Address | [address] | | | [place] [address] | + + + | Home Phone [...] Author | [facility] | | | and [place] | + + + | Organization | [facility] | | | and [place] | + + + | Address | Unknown | + + + | Phone | Unavailable | + + + Support + + + + + | Name | Relationship | Address | Phone | + + + + + | Sigrid Lennon | ECON | [address] | | | | | [place] [address] | | + + + + + | Valentín Saleh | ECON | [address] | | | | | [place] [address] | | + + + + + | Roberto Carlos Lennon | LEVI | Unknown | | + + + + + Care Team Providers + +------+ + | Care Report Specialist Name | Role | Phone | [...] (mild) (Primary Dx); | | | | [place], [place] | [address] | Vitamin D | | | | [address] | [address] | deficiency | | | | [phone] | | | +--------+ + + + [...] | | | | | | [place] [address] | | | | | | [phone] | | | | | | | [...] [address] | [place] | [phone] | | [facility] | | [address] | | | - LABORATORY | | [...]
--- OUTSIDE RECORDS SUMMARY | ~2019-09-12 | XMS | Encounter Summary ---
Demographics + + + | Address | [address] | | | [place] [address] | + + + | Home Phone [...] [facility] | | | and [place] | + + + | Organization | [facility] | | [...] | | | | | [place] [address] | | + + + + + | Valentín Saleh | ECON | [address] | | | | | [place] [address] | | + + + + + | Roberto Carlos Lennon | LEVI | [place] | | + + + + + Care Team Providers + +------+ + | Care Physical Medicine Specialist Name | Role | Phone | + +------+ + PCP | Unavailable | + +------+ + Encounter Details +--------+ + + + + | Date | Type | Department | Care Team | Description | +--------+ + + + + | 05/06/ | Hospital | [facility] | Stephenie Paul, | | | 2010 | Encounter | MED CTR LABORATORY | [address] | | | | | [address] [place] | [facility], | | | | | [place], [place] | [place] [address] | | | | | [address] | [phone] | | | | | [phone] | | | +--------+ + + + [...] | | | | | | [place] [address] | | | | | | [phone] | | | | | | | [...] + | [facility] | [address] | [place], [place] | [phone] | | [facility] | | [address] | | | - LABORATORY | | | | + + + + + | [facility] | [address] | [place] | | | [facility] | | [id number] [place] [address] | | | - LABORATORY | | [...] [address] | [place] | [phone] | | [facility] | | [address] | | | - LABORATORY | | | | + + + + + | [facility] | [address] | [place] | | | [facility] | | [email or web address] | | | - LABORATORY | | [...] (H) | 7 - 18 mg/dL | [facility] | | | | | | [facility] [...] + | [facility] | [address] | [place], [place] | [phone] | | [facility] | | [address] | | | - LABORATORY | | | | + + + + + | [facility] | [address] | [place], [place] | | | [facility] | | [id number] [place] [address] | | | - LABORATORY | | | | + + + + + documented in this encounter Visit Diagnoses Not on filedocumented in this encounter"
--- OUTSIDE RECORDS SUMMARY | ~2019-09-12 | XMS | Encounter Summary ---
Demographics + + + | Address | [address] | | | [place] [address] | + + + | Home Phone [...] Author | [facility] | | | and [place] | + + + | Organization | [facility] | | [...] | | | | | [place] [address] | | + + + + + | Valentín Saleh | ECON | [id number] | | | | | [place] [address] | | + + + + + | Roberto Carlos Lennon | LEVI | Unknown | | + + + + + Care Team Providers + +------+ + | Care Carbon Brush Maker Name | Role | Phone | + +------+ + | No, Physician | PCP | Unavailable | + +------+ + Reason for Visit + +--------+ + | Reason | Onset | Comments | | | Date | | + +--------+ + | Appointment | 05/13/ | | | | 2019 | | + +--------+ + Encounter Details +--------+ + + + + | Date | Type | Department | Care Team | Description | +--------+ + + + + | 05/13/ | Telephone | [facility] | Stephenie Paul, | Appointment | | 2019 | | CARDIOLOGY [address] | [address] | | | | | [place], | [place], | | | | | [place] [address] | [place] [address] | | | | | [phone] | [phone] | | | | | | | [...] encounter Miscellaneous Notes Telephone Encounter - Lisa Garay - 05/14/2019 1:02 PM PDTLetter Kojo baird signed by Lisa Garay at 05/14/2019 1:03 PM PDTdocumented in this encounter Plan of [...] | | | | | | [place] [address] | | | | | | [phone] | | | | | | | | +--------+---------+ + + + documented as of this encounter Visit Diagnoses Not on filedocumented in this encounter"
--- OUTSIDE RECORDS SUMMARY | ~2019-09-12 | XMS | Encounter Summary ---
Demographics + + + | Address | [address] | | | [place] [address] | + + + | Home Phone [...] | Author | [facility] | | | and [place] | + + + | Organization | [facility] | | [...] | | | | | [place] [address] | | + + + + + | Valentín Saleh | ECON | [phone] | | | | | [place] [address] | | + + + + + | Roberto Carlos Lennon | LEVI | [place] | | + + + + + Care Team Providers + +------+ + | Care Industrial Maintenance Millwright Name | Role | Phone | + +------+ + PCP | Unavailable | + +------+ + Encounter Details +--------+ + + + + | Date | Type | Department | Care Team | Description | +--------+ + + + + | 05/27/ | Hospital | [facility] | Francois Pascal, | | | 2008 | Encounter | MED CTR LABORATORY | [address] | | | | | [address] [place] | [address], | | | | | [place] | [place] [address] | | | | | [address] | [phone] | | | | | [phone] | | | +--------+ + + + [...] | | | | | | [place] [address] | | | | | | [phone] | | | | | | | | +--------+---------+ + + + documented as of this encounter Visit Diagnoses Not on filedocumented in this encounter"
--- OUTSIDE RECORDS SUMMARY | ~2019-09-12 | XMS | Encounter Summary ---
Demographics + + + | Address | [address] | | | [place] [address] | + + + | Home Phone [...] + | Author | [facility] | | | and [place] | + + + | Organization | [facility] [...] | | | | | [place] [address] | | + + + + + | Valentín Saleh | ECON | [address] | | | | | [place] [address] | | + + + + + | Roberto Carlos Lennon | LEVI | Unknown | | + + + + + Care Team Providers + +------+ + | Care Pit Laborer Name | Role | Phone | [...] + | 06/02/ | Telephone | [facility] | Francois Pascal, | Medical Clearance | | 2016 | | [address] | [address] [facility] [address] | | | | | [place], | [address], | | | | | [place] [address] | [place] [address] | | | | | [phone] | [phone] | | | | | | | [...] RN - 06/02/2016 4:[address] [facility] to get clearance for ankle replacement for patient. May call her at [phone]. Surgery June 08. documented in this encounter [...] | | | | | | [place] [address] | | | | | | [phone] | | | | | | | | +--------+---------+ + + + documented as of this encounter Visit Diagnoses Not on filedocumented in this encounter"
--- OUTSIDE RECORDS SUMMARY | ~2019-09-12 | XMS | Encounter Summary ---
Demographics + + + | Address | [address] | | | [place] [address] | + + + | Home Phone [...] | Author | [facility] | | | and [place] | + + + | Organization | [facility] | | [...] | | | | | [place] [address] | | + + + + + | Valentín Saleh | ECON | [address] | | | | | [place] [address] | | + + + + + | Roberto Carlos Lennon | LEVI | [place] | | + + + + + Care Team Providers + +------+ + | Care Cloth Shrinking Machine Operator Helper Name | Role | Phone | + +------+ + PCP | Unavailable | + +------+ + Encounter Details +--------+ + + + + | Date | Type | Department | Care Team | Description | +--------+ + + + + | 11/15/ | Hospital | [facility] | | | | 1999 | Encounter | MED CTR XRAY [address] | | | | | | [address] [place] | | | | | | [place] [address] | | | | | | [phone] | | | +--------+ + + + [...] | | | | | | [place] [id number] | | | | | | [phone] | | | | | | | | +--------+---------+ + + + documented as of this encounter Visit Diagnoses Not on filedocumented in this encounter"
--- OUTSIDE RECORDS SUMMARY | ~2019-09-12 | XMS | Encounter Summary ---
Demographics + + + | Address | [address] | | | [place] [address] | + + + | Home Phone [...] | Author | [facility] | | | and [place] | + + + | Organization | [facility] | | [...] | | | | | [place] [address] | | + + + + + | Valentín Saleh | ECON | [address] | | | | | [place] [address] | | + + + + + | Roberto Carlos Lennon | LEVI | [place] | | + + + + + Care Team Providers + +------+ + | Care Pediatric Physician Assistant Name | Role | Phone | + +------+ + PCP | Unavailable | + +------+ + Encounter Details +--------+ + + + + | Date | Type | Department | Care Team | Description | +--------+ + + + + | 03/04/ | Hospital | [facility] | Mauricio Rider | | | 2009 | Encounter | MED CTR LABORATORY | MD [place] [address] [place] [address] | | | | | [address] | [place] | | | | | [place] | [address] | | | | | [address] | | | | | | [phone] | | | +--------+ + + + [...] | | | | | | [place] [address] | | | | | | [phone] | | | | | | | | +--------+---------+ + + + documented as of this encounter Visit Diagnoses Not on filedocumented in this encounter"
--- OUTSIDE RECORDS SUMMARY | ~2019-09-12 | XMS | Encounter Summary ---
Demographics + + + | Address | [address] | | | [place] [address] | + + + | Home Phone [...] + | Author | [facility] | | | and [place] | + + + | Organization | [facility] | [...] | | | | | [place] [address] | | + + + + + | Valentín Saleh | ECON | [address] | | | | | [place] [address] | | + + + + + | Roberto Carlos Lennon | LEVI | [place] | | + + + + + Care Team Providers + +------+ + | Care Ethylbenzene Cracking Supervisor Name | Role | Phone | + +------+ + PCP | Unavailable | + +------+ + Encounter Details +--------+ + + + + | Date | Type | Department | Care Team | Description | +--------+ + + + + | 07/31/ | Hospital | [facility] | | | | 2004 | Encounter | MED CTR LABORATORY | | | | | | [address] [place] | | | | | | [place] | | | | | | [address] | | | | | | [phone] | | | +--------+ + + + [...] | | | | | | [place] [address] | | | | | | [phone] | | | | | | | | +--------+---------+ + + + documented as of this encounter Visit Diagnoses Not on filedocumented in this encounter"
--- OUTSIDE RECORDS SUMMARY | ~2019-09-12 | XMS | Encounter Summary ---
Demographics + + + | Address | [address] | | | [place] [address] | + + + | Home Phone [...] | Author | [facility] | | | and [place] | + + + | Organization | [facility] | [...] | | | | | [place] [address] | | + + + + + | Valentín Saleh | ECON | [address] | | | | | [place] [address] | | + + + + + | Roberto Carlos Lennon | LEVI | Unknown | | + + + + + Care Team Providers + +------+ + | Care Directory Carrier Name | Role | Phone | + +------+ + | Francois Pascal MD | PCP | | + +------+ + Encounter Details +--------+ + + + + | Date | Type | Department | Care Team | Description | +--------+ + + + + | 12/18/ | Hospital | [facility] | Francois Pascal, | HYPERTENSION NEC; DM | | 2014 | Encounter | MED CTR LABORATORY | [address] | (diabetes mellitus) | | | | [address] [place] | [address], | | | | | [place] | [place] [address] | | | | | [address] | [phone] | | | | | [phone] | | | +--------+ + + + [...] [address] | | | | | | [place], | | | | | | [place] [address] | | | | | | [phone] | | | | | | | [...] - 1.030 | [facility] | | | [place], | | | [facility] | | [...] [address] | [place] | [phone] | | [facility] | | [address] | | | - LABORATORY | | | | + + + + + | [facility] | [address] | [place] | | | [facility] | | [address] | | | - [...] | Estimated | 177 | mg/dL | [facility] | | | Average | | | [facility] | | | Glucose | | | [...] + | [facility] | [address] | [place], [place] | [phone] | | [facility] | | [address] | | | - LABORATORY | | | | + + + + + | [facility] | [address] | [place], [place] | | | [facility] | | [address] | | | - [...] + | [facility] | [address] | [place] | [phone] | | [facility] | | [address] | | | - LABORATORY | | | | + + + + + | [facility] | [address] | [place], [place] | | | [facility] | | [address] | | | - [...] mL/min/1.73m2 | [facility] | | | [place] | RATE,ESTIMATED | | MEDICAL | | | | mL/min/1.69q5Fzbe than | | CENTER - | | [...] + | [facility] | [address] | [place], [place] | [phone] | | [facility] | | [address] | | | - LABORATORY | | | | + + + + + | [facility] | [address] | [place], [place] | | | [facility] | | [address] | | | - [...]
--- OUTSIDE RECORDS SUMMARY | ~2019-09-12 | XMS | Encounter Summary ---
Demographics + + + | Address | [address] | | | [place] [address] | + + + | Home Phone [...] Author | [facility] | | | and [place] | + + + | Organization | [facility] | | | [...] | | | | | [place] [address] | | + + + + + | Valentín Saleh | ECON | [address] | | | | | [place] [address] | | + + + + + | Roberto Carlos Lennon | LEVI | [place] | | + + + + + Care Team Providers + +------+ + | Care Tub Rider Name | Role | Phone | + +------+ + PCP | Unavailable | + +------+ + Encounter Details +--------+ + + + + | Date | Type | Department | Care Team | Description | +--------+ + + + + | 10/30/ | Hospital | [facility] | | | | 2003 | Encounter | MED CTR XRAY [address] | | | | | | [address] | | | | | | [place] [address] | | | | | | [phone] | | | +--------+ + + + [...] | | | | | | [place] [address] | | | | | | [phone] | | | | | | | | +--------+---------+ + + + documented as of this encounter Visit Diagnoses Not on filedocumented in this encounter"
--- OUTSIDE RECORDS SUMMARY | ~2019-09-12 | XMS | Encounter Summary ---
Demographics + + + | Address | [address] | | | [place] [address] | + + + | Home Phone [...] | Author | [facility] | | | and [place]ana | + + + | Organization | [facility] | | [...] | | | | | [place] [address] | | + + + + + | Valentín Saleh | ECON | [address] | | | | | [place] [address] | | + + + + + | Roberto Carlos Lennon | LEVI | Unknown | | + + + + + Care Team Providers + +------+ + | Care Territory Outside Sales Manager Name | Role | Phone | [...] + | 11/27/ | Office | [facility] | [place], | CHRONIC KIDNEY | | 2012 | Visit | NEPHROLOGY [address] | [address] | DISEASE STAGE III | | | | [address] [address] | [address] [place] | (MODERATE) (Primary | | | | [place] | [address] [place] [address] | Dx) | | | | [address] | [address] | | | | | [phone] | | | +--------+---------+ + + + [...] Visit Date: 11/27/2012 PCP: Francois Pascal HPI: Aylson Lennon is a 81 y.o. female following [...] understanding of above plan. CC: Francois Pascal [facility] Review of Systems Physical Exam docunara roman this encounter Plan of Treatment +--------+---------+ + + + | Date | Type | Specialty | Care Team | Description | +--------+---------+ + + + | 12/06/ | Office | Cardiology | Stephenie Paul, | | | 2019 | Visit | | MD [facility] | | | | | | [place], | | | | | | [place] [address] | | | | | | [phone] | | | | | | | | +--------+---------+ + + + documented as of this encounter Visit Diagnoses + + | Diagnosis | + + | CHRONIC KIDNEY DISEASE STAGE III (MODERATE) - Primary Chronic kidney disease, Stage | | III (moderate) | + + documented in this encounter
--- OUTSIDE RECORDS SUMMARY | ~2019-09-12 | XMS | Encounter Summary ---
Demographics + + + | Address | [address] | | | [place] [address] | + + + | Home Phone [...] Author | [facility] | | | and [place]ana | + + + | Organization | [facility] | | | [...] | | | | | [place] [address] | | + + + + + | Valentín Saleh | ECON | [address] | | | | | [place] [address] | | + + + + + | Roberto Carlos Lennon | LEVI | Unknown | | + + + + + Care Team Providers + +------+ + | Care Assembler Deck And Hull Name | Role | Phone | + [...] + | 10/19/ | Telephone | [facility] | Francois Pascal, | SNF Admission | | 2019 | | [facility] [place] | [address] | | | | | [address] | [address], | | | | | [place] | [place] [address] | | | | | [address] | [phone] | | | | | [phone] | | | +--------+ + + + [...] and the orders were faxed back to [facility]. elephone Encounter - Mary Mullen RN - 10/19/2018 12:23 PM PDTCalled and spoke with Heidi, They will send over the same orders as last time for Dr Va Thayer to sign as Dr. Pascal is out of office until next week. elephone Encounter - Diamond Sebastian RN - 10/19/2018 11:06 AM PDTJuterrell from [facility] calls in and reports that she received a call from the caregiver at the Adult family home the patient was just admitted to. They are very concerned for the patient's safety. They do not have the staff or the equipment to car e for the patient safely. [facility] is asking for readmit orders to their rn long term care [facility]. Same orders as last time. They are requesting these as soon as possible due to the concern for the patient's safety a nd well being. [phone] EXT: [phone] Francisca from [facility] documented in this encounter Plan [...] | | | | | | [place] [address] | | | | | | [phone] | | | | | | | | +--------+---------+ + + + documented as of this encounter Visit Diagnoses Not on filedocumented in this encounter"
--- OUTSIDE RECORDS SUMMARY | ~2019-09-12 | XMS | Encounter Summary ---
Demographics + + + | Address | [address] | | | [place] [address] | + + + | Home Phone [...] Author | [facility] | | | and [place] | + + + | Organization | [facility] | | | and [...] | | | | | [place] [address] | | + + + + + | Valentín Saleh | ECON | [address] | | | | | [place] [address] | | + + + + + | Roberto Carlos Lennon | LEVI | Unknown | | + + + + + Care Team Providers + +------+ + | Care Electrician Bus Name | Role | Phone | + [...] Refill | | 2015 | | [facility] [place] | [address] | | | | | [address] | [address], | | | | | [place] | [place] [address] | | | | | [address] | [phone] | | | | | [phone] | | | +--------+--------+ + + + [...] | | | | | | [place] [address] | | | | | | [phone] | | | | | | | | +--------+---------+ + + + documented as of this encounter Visit Diagnoses Not on filedocumented in this encounter"
--- OUTSIDE RECORDS SUMMARY | ~2019-09-12 | XMS | Encounter Summary ---
Demographics + + + | Address | [address] | | | [place] [address] | + + + | Home Phone [...] Author | [facility] | | | and [place] | + + + | Organization | [facility] | | | [...] | | | | | [place] [address] | | + + + + + | Valentín Saleh | ECON | [address] | | | | | [place] [address] | | + + + + + | Roberto Carlos Lennon | LEVI | Unknown | | + + + + + Care Team Providers + +------+ + | Care Fall Intern Name | Role | Phone | + +------+ + | Francois Pascal MD | PCP | | + +------+ + Reason for Visit +--------+--------+ + | Reason | Onset | Comments | | | Date | | +--------+--------+ + | Edema | 11/15/ | | | | 2017 | | +--------+--------+ + Encounter Details +--------+ + + + + | Date | Type | Department | Care Team | Description | +--------+ + + + + | 11/15/ | Telephone | [facility] [place] [facility] | Francois Pascal, | Edema | | 2017 | | [facility] | [address] | | | | | [address] | [address], | | | | | [place] | [place] [address] | | | | | [address] | [phone] | | | | | [phone] | | | +--------+ + + + [...] Telephone Encounter - Leanne Johnson RN - 11/15/2017 4:08 PM PDTWilma called back and states the left leg is warmer and more red than the right leg. Scheduled to be seen 11/16/17 at 1030. elephone E ncounter - Leanne Johnson RN - 11/15/2017 3:56 PM PDTReceived a fax from Renee herrerading 2+ pitting edema to left lower leg and redness. Phoned [facility] and spoke with jackie Gonzalez, who has not assessed patient yet so she doesn't know if she needs to be schedule t o be seen or not. She will assess and call back if they want her scheduled.Electronically s igned by Leanne Johnson RN at 11/15/2017 3:57 PM PDTdocumented in this encounter Plan of [...] | | | | | | [place] [address] | | | | | | [phone] | | | | | | | | +--------+---------+ + + + documented as of this encounter Visit Diagnoses Not on filedocumented in this encounter"
--- OUTSIDE RECORDS SUMMARY | ~2019-09-12 | XMS | Encounter Summary ---
Demographics + + + | Address | [address] | | | [place] [address] | + + + | Home Phone | | + + + | Preferred Language | Unknown | + + + | Marital Status | Single | + + + | Gnosticist Affiliation | UNK | + + + | Race | White | + + + | Ethnic Group | Not or | + + + Author + + + | Author | [facility] | + + + | Organization | [facility] | + + + | Address | Unknown | + + + | Phone | Unavailable | + + + Support + + + + + | Name | Relationship | Address | Phone | + + + + + | Sigrid Lennon | LEVI | [address] | | | | | [place] [address] | | + + + + + | None None | ECON | Unknown | Unavailable | + + + + + Care Team Providers + +------+ + | Care Clinical Research Technician Name | Role | Phone | + +------+ + PCP | Unavailable | + +------+ + Encounter Details +--------+ + + + + | Date | Type | Department | Care Team | Description | +--------+ + + + + | 01/05/ | Office | [facility] | Clinic, | Progress Note | | 2004 | Visit-Trans | | Otolaryngology | | | | cribed | | | | +--------+ + + [...] as of this encounter Progress Notes Interface, Hospice Registered Nurse In - 01/17/2005 5:01 AM [facility] [id number] RADHA AL[facility]ON [facility] Date: 01/05/2005 Clinic: Otolaryngology Presenting Complaint: Throat pain and soreness in the mouth and the lips. Subjective : This is a 73-year-old female who has had number of problems with history of burning and soreness in her mouth for a few months now. This flares up occasionally and is with eating and swallowing, at other times the soreness decreases and is more tolerable. The patient does not have any breathing difficulties. There is no hiccupping. There is no cough or breathlessness. There is no ear pain. The patient in the past had white lesions on her tongue which have been biopsied in the year 1999 and 2002, both of which have shown only chronic active inflammation with hyperplasia but no evidence of malignancy. The patient has recently been tried with oral antibiotics and antifungals for her sore mouth but none of them have had any benefit. The patient has already tried a short course of oral prednisone to no effect. Currently the patient has been started on methotrexate 12.5 mg a day once a week for the last 3 weeks. This also the patient has felt has not given her any benefit. Past Medical History: Significant for hypertension, diabetes, and coronary artery disease. Past Surgical History: Repair of a hiatal hernia in 1984 and open cholecystectomy in 1986 and then CABG in 1994 and 1996. Allergies: No known drug allergies. Medications: Currently the patient is on lisinopril 40 mg once a day, hydrochlorothiazide 25 mg once a day, Zocor 20 mg daily, Toprol-XL 150 mg daily, Benicar 40 mg a day, folic acid 1 mg a day. For her diabetes, she is on Lantus insulin 45 units daily along with NPH and regular insulin in the morning and at dinner time. Family History: Noncontributory. Review of Systems: Negative except as above. Physical Examination: General: The patient is awake, alert, and oriented. Comfortable and in no acute distress. HEENT: Examination of the head and neck shows no obvious pallor, icterus or cyanosis. Examination of the nares show normal nasal mucosa. On inspection of the oral cavity, there is obvious erythema of her inner lips, especially the lower one. Her tongue and buccal mucosa appear also to be reddened and inflamed obviously, sore to touch. There is some white spots on the lateral aspect of her tongue and on her buccal mucosa. On flexible nasopharyngoscopic examination, the entire mucosa in the nasal passage and the oropharynx and nasopharynx appear to be normal. Vocal cords are visualized and are normal in appearance with good movement on phonation. Assessment and Plan: This is a 74-year-old lady with mucositis of the oral cavity. We are not entirely sure what has led to this but it might be some kind of an autoimmune process causing the soreness. The methotrexate seems like a good idea though it is still early to say whether it will be beneficial for her or not. We also discussed other modes of treatment including local steroid injections so that she does not have to take them systemically and does affect her diabetes control. The patient was agreeable to this. We therefore went ahead and injected her right half of the lower lip which seems to be the worse spot today with mixture of long acting triamcinolone with lidocaine 1 mL each. If the patient has benefit from this, she may need a repeat of this injection at other locations in her lip and her mouth. If this continues to be of good benefit, maybe we should try tapering off the methotrexate. It is, however, too early to say at this point. The local injections can definitely be done in her hometown in [place]. We will talk to the patient in approximately 3 weeks' time to see how this treatment has benefited her. The patient was seen in clinic with Dr.Peter Blankenship, who also examined the patient and formulated the above plan. Clayton Burton M.D. [place] / [id number] / [id number] / [id number] / [id number] Electronically signed by Fabio Blankenship 01-16-2005 03:26:31 PM documented i n this encounter Plan of Treatment Not on filedocumented as of this encounter Visit Diagnoses Not on filedocumented in this encounter"
--- OUTSIDE RECORDS SUMMARY | ~2019-09-12 | XMS | Encounter Summary ---
Demographics + + + | Address | [address] | | | [place] [address] | + + + | Home Phone [...] + | Author | [facility] | | | and [place] | + + + | Organization | [facility] | | | [...] | | | | | [place] [address] | | + + + + + | Valentín Saleh | ECON | [address] | | | | | [place] [address] | | + + + + + | Roberto Carlos Lennon | LEVI | Unknown | | + + + + + Care Team Providers + +------+ + | Care Lead Manufacturing Engineer Name | Role | Phone | [...] left ankle (Primary | | | | [place] [address] | [place] [address] | Dx); Left ankle | | | | [phone] | [phone] | pain; CHRONIC KIDNEY | | | [...] 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 Social History: Reviewed history from 08/11/2011 and no changes required: Born in [facility] for 46 years. and [...] 2019 | Visit | | [address] | | | | | | [place], | | | | | | [place] [address] | | | | | | [phone] | | | | | | | [...] [address] | [place] | [phone] | | [facility] | | [address] | | | - LABORATORY | | [...] not | 42 (L)Comment: | >=60 | [place] | | | | GLOMERULAR FILTRATION | mL/min/1.73m2 | [facility] | | | [place] | RATE,ESTIMATED | | MEDICAL | | | | mL/min/1.62w8Geil than | | CENTER - | | [...] | | | | | mg/dL | [facility] | | | | | | [...] + | [facility] | [address] | [place] | [phone] | | [facility] | | [address] | | | - LABORATORY | | [...] Cells | | | [facility] | | [...] | + + + + + | [address] | [address] | [place] | [phone] | | [facility] | | [address] | | | - LABORATORY | | [...]
--- OUTSIDE RECORDS SUMMARY | ~2019-09-12 | XMS | Encounter Summary ---
Demographics + + + | Address | [address] | | | [place] [address] | + + + | Home Phone [...] | [facility] | | | and [place]ana | + + + | Organization | [facility] | [...] | | | | | [place] [address] | | + + + + + | Valentín Saleh | ECON | [address] | | | | | [place] [address] | | + + + + + | Roberto Carlos Lennon | LEVI | [place] | | + + + + + Care Team Providers + +------+ + | Care Marine Meteorologist Name | Role | Phone | + +------+ + PCP | Unavailable | + +------+ + Encounter Details +--------+ + + + + | Date | Type | Department | Care Team | Description | +--------+ + + + + | 10/26/ | Hospital | [facility] | | | | 2001 | Encounter | MED CTR XRAY [address] | | | | | | [address] [place] | | | | | | [place] [address] | | | | | | [phone] | | | +--------+ + + + [...] | | | | | | [place] [address] | | | | | | [phone] | | | | | | | | +--------+---------+ + + + documented as of this encounter Visit Diagnoses Not on filedocumented in this encounter"
--- OUTSIDE RECORDS SUMMARY | ~2019-09-12 | XMS | Encounter Summary ---
Demographics + + + | Address | [address] | | | [place] [address] | + + + | Home Phone [...] Author | [facility] | | | and [place] | + + + | Organization | [facility] | | [...] | | | | | [place] [address] | | + + + + + | Valentín Saleh | ECON | [address] | | | | | [place] [address] | | + + + + + | Roberto Carlos Lennon | LEVI | Unknown | | + + + + + Care Team Providers + +------+ + | Care Leveling Machine Operator Name | Role | Phone [...] + + | 12/11/ | Office | [facility] | Francois Pascal, | Squamous carcinoma | | 2013 | Visit | [facility] | [address] | (HCC) (Primary Dx) | | | | [address] | [address], | | | | | [place] | [place] [address] | | | | | [address] | [phone] | | | | | [phone] | | | +--------+---------+ + + + [...] | | | | | | [place] [address] | | | | | | [phone] | | | | | | | | +--------+---------+ + + + documented as of this encounter Visit Diagnoses + + | Diagnosis | + + | Squamous carcinoma - Primary Other malignant neoplasm without specification of site | + + documented in this encounter
--- OUTSIDE RECORDS SUMMARY | ~2019-09-12 | XMS | Encounter Summary ---
Demographics + + + | Address | [address] | | | [place] [address] | + + + | Home Phone [...] Author | [facility] | | | and [place] | + + + | Organization | [facility] [...] | | | | | [place] [address] | | + + + + + | Valentín Saleh | ECON | [address] | | | | | [place] [address] | | + + + + + | Roberto Carlos Lennon | LEVI | Unknown | | + + + + + Care Team Providers + +------+ + | Care Endbander Name | Role | Phone | + [...] Description | +--------+--------+ + + + | 07/13/ | Refill | [facility] [place] [facility] | Francois Pascal, | Medication Refill | | 2012 | | [facility] [place] | [address] | | | | | [address] | [address], | | | | | [place] | [place] [address] | | | | | [address] | [phone] | | | | | [phone] | | | +--------+--------+ + + + [...] | | | | | | [place] [address] | | | | | | [phone] | | | | | | | | +--------+---------+ + + + documented as of this encounter Visit Diagnoses Not on filedocumented in this encounter"
--- OUTSIDE RECORDS SUMMARY | ~2019-09-12 | XMS | Encounter Summary ---
Demographics + + + | Address | [address] | | | [place] [address] | + + + | Home Phone [...] Author | [facility] | | | and [place] | + + + | Organization | [facility] | | [...] | | | | | [place] [address] | | + + + + + | Valentín Saleh | ECON | [address] | | | | | [place] [address] | | + + + + + | Roberto Carlos Lennon | LEVI | Unknown | | + + + + + Care Team Providers + +------+ + | Care Machine Captain Name | Role | Phone | + +------+ + | Francois Pascal MD | PCP | | + +------+ + Reason for Visit +--------+--------+ + | Reason | Onset | Comments | | | Date | | +--------+--------+ + | Other | 02/07/ | | | | 2017 | | +--------+--------+ + Encounter Details +--------+ + + + + | Date | Type | Department | Care Team | Description | +--------+ + + + + | 02/07/ | Telephone | [facility] | Francois Pascal, | Other | | 2017 | | [facility] [place] | [address] | | | | | [address] | [address], | | | | | [place] | [place] [address] | | | | | [address] | [phone] | | | | | [phone] | | | +--------+ + + + [...] this encounter Miscellaneous Notes Telephone Encounter - Sherlyn Fritz - 02/08/2018 2:[facility] PM [facility]Electronical ly signed by Sherlyn Fritz at 02/08/2018 2:52 PM PSTTelephone Encounter - Rosibel Jiang 12:02 PM Gera from [facility] called needing the chart notes from today's (02-07-2018) visit to be faxed to [phone]. documented in this encoun ter Plan of Treatment +--------+---------+ + + + | Date | Type | Specialty | Care Team | Description | +--------+---------+ + + + | 12/06/ | Office | Cardiology | Stephenie Paul, | | | 2019 | Visit | | MD [address] | | | | | | [place], | | | | | | [place] [address] | | | | | | [phone] | | | | | | | | +--------+---------+ + + + documented as of this encounter Visit Diagnoses Not on filedocumented in this encounter"
--- OUTSIDE RECORDS SUMMARY | ~2019-09-12 | XMS | Encounter Summary ---
Demographics + + + | Address | [address] | | | [place] [address] | + + + | Home Phone [...] | [facility] | | | and [place] | + + + | Organization | [facility] | [...] | | | | | [place] [address] | | + + + + + | Valentín Saleh | ECON | [address] | | | | | [place] [address] | | + + + + + | Roberto Carlos Lennon | LEVI | Unknown | | + + + + + Care Team Providers + +------+ + | Care Rural Mail Carrier Name | Role | Phone | [...] + + | 03/01/ | Refill | [facility] | Misael Haynes, | Medication Refill | | 2013 | | [facility] [place] | [address] | | | | | [address] | [place] | | | | | [place] | [address] | | | | | [address] | | | | | | [phone] | | | +--------+--------+ + + + [...] | | | | | | [place] [address] | | | | | | [phone] | | | | | | | | +--------+---------+ + + + documented as of this encounter Visit Diagnoses Not on filedocumented in this encounter"
--- OUTSIDE RECORDS SUMMARY | ~2019-09-12 | XMS | Encounter Summary ---
Demographics + + + | Address | [address] | | | [place] [address] | + + + | Home Phone [...] | Author | [facility] | | | and [place] | + + + | Organization | [facility] | [...] | | | | | [place] [address] | | + + + + + | Valentín Saleh | ECON | [address] | | | | | [place] [address] | | + + + + + | Roberto Carlos Lennon | LEVI | Unknown | | + + + + + Care Team Providers + +------+ + | Care Order Tracer Name | Role | Phone | + [...] | 02/15/ | Refill | [facility] [place] [facility] | Francois Pascal, | Medication Refill | | 2013 | | [facility] [place] | [address] | | | | | [address] | [address], | | | | | [place] | [place] [address] | | | | | [address] | [phone] | | | | | [phone] | | | +--------+--------+ + + + [...] | | | | | | [place] [address] | | | | | | [phone] | | | | | | | | +--------+---------+ + + + documented as of this encounter Visit Diagnoses Not on filedocumented in this encounter"
--- OUTSIDE RECORDS SUMMARY | ~2019-09-12 | XMS | Encounter Summary ---
Demographics + + + | Address | [address] | | | [place] [address] | + + + | Home Phone [...] + | Author | [facility] | | | and [place] | + + + | Organization | [facility] | | [...] | | | | | [place] [address] | | + + + + + | Valentín Saleh | ECON | [address] | | | | | [place] [address] | | + + + + + | Roberto Carlos Lennon | LEVI | Unknown | | + + + + + Care Team Providers + +------+ + | Care Supervisor Elementary Education Name | Role | Phone | + [...] Refill | | 2017 | | [facility] | [address] | | | | | [address] | [address], | | | | | [place] | [place] [address] | | | | | [address] | [phone] | | | | | [phone] | | | +--------+--------+ + + + [...] | | | | | | [place] [address] | | | | | | [phone] | | | | | | | | +--------+---------+ + + + documented as of this encounter Visit Diagnoses + + | Diagnosis | + + | Cellulitis and abscess of foot Cellulitis and abscess of foot, except toes | + + documented in this encounter"
--- OUTSIDE RECORDS SUMMARY | ~2019-09-12 | XMS | Encounter Summary ---
Demographics + + + | Address | [address] | | | [place] [address] | + + + | Home Phone [...] | [facility] | | | and [place] | + + + | Organization | [facility] [...] | | | | | [place] [address] | | + + + + + | Valentín Saleh | ECON | [address] | | | | | [place] [address] | | + + + + + | Roberto Carlos Lennon | LEVI | [place] | | + + + + + Care Team Providers + +------+ + | Care Accounts Adjustable Clerk Name | Role | Phone | + +------+ + PCP | Unavailable | + +------+ + Encounter Details +--------+ + + + + | Date | Type | Department | Care Team | Description | +--------+ + + + + | 05/17/ | Hospital | [facility] | | | | 2001 | Encounter | MED CTR [facility] OP | | | | | | [address] | | | | | | [place] | | | | | | [address] | | | | | | [phone] | | | +--------+ + + + [...] | | | | | | [place] [address] | | | | | | [phone] | | | | | | | | +--------+---------+ + + + documented as of this encounter Visit Diagnoses Not on filedocumented in this encounter"
--- OUTSIDE RECORDS SUMMARY | ~2019-09-12 | XMS | Encounter Summary ---
Demographics + + + | Address | [address] | | | [place] [address] | + + + | Home Phone [...] + | Author | [facility] | | | and Clarkeana | + + + | Organization | [facility] | | | [...] | | | | | [place] [address] | | + + + + + | Valentín Saleh | ECON | [address] | | | | | [place] [address] | | + + + + + | Roberto Carlos Lennon | LEVI | [place] | | + + + + + Care Team Providers + +------+ + | Care Information Systems Director Name | Role | Phone | + +------+ + PCP | Unavailable | + +------+ + Encounter Details +--------+ + + + + | Date | Type | Department | Care Team | Description | +--------+ + + + + | 01/13/ | Hospital | [facility] | | | | 1993 | Encounter | MED CTR XRAY [address] | | | | | | [place] | | | | | | [place] [address] | | | | | | [phone] | | | +--------+ + + + [...] | | | | | | [place] [address] | | | | | | [phone] | | | | | | | | +--------+---------+ + + + documented as of this encounter Visit Diagnoses Not on filedocumented in this encounter"
--- OUTSIDE RECORDS SUMMARY | ~2019-09-12 | XMS | Encounter Summary ---
Demographics + + + | Address | [address] | | | [place] [address] | + + + | Home Phone [...] Author | [facility] | | | and [place] | + + + | Organization | [facility] [...] | | | | | [place] [address] | | + + + + + | Valentín Saleh | ECON | [address] | | | | | [place] [address] | | + + + + + | Roberto Carlos Lennon | LEVI | [place] | | + + + + + Care Team Providers + +------+ + | Care Rn Womens Health Name | Role | Phone | + +------+ + PCP | Unavailable | + +------+ + Encounter Details +--------+ + + + + | Date | Type | Department | Care Team | Description | +--------+ + + + + | 02/27/ | Hospital | [facility] | Francois Pascal, | | | 2007 | Encounter | MED CTR XRAY [address] | [address] | | | | | [place] | [address] [place], | | | | | [place] [address] | [place] [address] | | | | | [phone] | [phone] | | | | | | | [...] | | | | | | [place] [address] | | | | | | [phone] | | | | | | | | +--------+---------+ + + + documented as of this encounter Visit Diagnoses Not on filedocumented in this encounter"
--- OUTSIDE RECORDS SUMMARY | ~2019-09-12 | XMS | Encounter Summary ---
Demographics + + + | Address | [address] | | | [place] [address] | + + + | Home Phone [...] Author | [facility] | | | and [place] | + + + | Organization | [facility] [...] | | | | | [place] [address] | | + + + + + | Valentín Saleh | ECON | [address] | | | | | [place] [address] | | + + + + + | Roberto Carlos Lennon | LEVI | Unknown | | + + + + + Care Team Providers + +------+ + | Care Nanotechnology Engineering Technician Name | Role | Phone [...] Refill | | 2013 | | [facility] [place] | [address] | | | | | [address] | [address] [place], | | | | | [place] | [place] [address] | | | | | [address] | [phone] | | | | | [phone] | | | +--------+--------+ + + + [...] | | | | | | [place] [address] | | | | | | [phone] | | | | | | | | +--------+---------+ + + + documented as of this encounter Visit Diagnoses Not on filedocumented in this encounter"
--- OUTSIDE RECORDS SUMMARY | ~2019-09-12 | XMS | Encounter Summary ---
Demographics + + + | Address | [address] | | | [place] [address] | + + + | Home Phone [...] | [facility] | | | and [place]ana | + + + | Organization | [facility] | | | [...] | | | | | [place] [address] | | + + + + + | Valentín Saleh | ECON | [address] | | | | | [place] [address] | | + + + + + | Roberto Carlos Lennon | LEVI | [place] | | + + + + + Care Team Providers + +------+ + | Care Claims Consultant Name | Role | Phone | + +------+ + PCP | Unavailable | + +------+ + Encounter Details +--------+ + + + + | Date | Type | Department | Care Team | Description | +--------+ + + + + | 03/29/ | Hospital | [facility] | | | | 2004 | Encounter | MED CTR XRAY [address] | | | | | | [place] | | | | | | [place] [address] | | | | | | [phone] | | | +--------+ + + + [...] | | | | | | [place] [address] | | | | | | [phone] | | | | | | | | +--------+---------+ + + + documented as of this encounter Visit Diagnoses Not on filedocumented in this encounter"
--- OUTSIDE RECORDS SUMMARY | ~2019-09-12 | XMS | Encounter Summary ---
Demographics + + + | Address | [address] | | | [place] [address] | + + + | Home Phone [...] | Author | [facility] | | | and [place] | + + + | Organization | [facility] [...] | | | | | [place] [address] | | + + + + + | Valentín Saleh | ECON | [address] | | | | | [place] [address] | | + + + + + | Roberto Carlos Lennon | LEVI | Unknown | | + + + + + Care Team Providers + +------+ + | Care Legal Recovery Specialist Name | Role | Phone | [...] | (MODERATE) (Primary | | | | [place], [place] | [address] [facility], [place] | Dx); Type 2 diabetes | | | | [address] | [address] | mellitus with | | | | [phone] | | hyperglycemia (HCC); | | | [...] this encounter Progress Zaynab Castellanos RN - 05/14/2014 10:17 AM PDTLabs for nephrology appt on 06/06/[address] [facility] documented in this encounter Plan of Treatment +--------+---------+ + + + | Date | Type | Specialty | Care Team | Description | +--------+---------+ + + + | 12/06/ | Office | Cardiology | Stephenie Paul, | | | 2019 | Visit | | MD Bob [address] | | | | | | [place], | | | | | | [place] [address] | | | | | | [phone] | | | | | | | [...] [address] | [place] | [phone] | | [facility] | | [address] | | | - LABORATORY | | [...] + | [facility] | [address] | [place] | [phone] | | [facility] | | [address] | | | - LABORATORY | | [...] not | 45 (L)Comment: | >=60 | MARISELA | | | | GLOMERULAR FILTRATION | mL/min/1.73m2 | [facility] | | | [place] | RATE,ESTIMATED | | MEDICAL | | | | mL/min/1.90g7Eokn than | | CENTER - | | [...] | 9.8 | 8.3 - 10.5 | [facility] | [...] ST. | [address] | [place] | [phone] | | [facility] | | [address] | | | - LABORATORY | | [...]
--- OUTSIDE RECORDS SUMMARY | ~2019-09-12 | XMS | Encounter Summary ---
Demographics + + + | Address | [address] | | | [place] [address] | + + + | Home Phone [...] | Author | [facility] | | | and [place] | + + + | Organization | [facility] [...] | | | | | [place] [address] | | + + + + + | Valentín Saleh | ECON | [address] | | | | | [place] [address] | | + + + + + | Roberto Carlos Lennon | LEVI | Unknown | | + + + + + Care Team Providers + +------+ + | Care Burning Supervisor Name | Role | Phone | [...] [address] | | | | | | [place], [place] | | | | | | [address] | | | | | | [phone] | | | +--------+ + + + [...] | 2019 | Visit | | [address] | | | | | | [place], | | | | | | [place] [address] | | | | | | [phone] | | | | | | | [...]
--- OUTSIDE RECORDS SUMMARY | ~2019-09-12 | XMS | Encounter Summary ---
Demographics + + + | Address | [address] | | | [place] [address] | + + + | Home Phone [...] | Author | [facility] | | | and [place] | + + + | Organization | [facility] | [...] | | | | | [place] [address] | | + + + + + | Valentín Saleh | ECON | [address] | | | | | [place] [address] | | + + + + + | Roberto Carlos Lennon | LEVI | Unknown | | + + + + + Care Team Providers + +------+ + | Care Developing Machine Tender Name | Role | Phone | + +------+ + | Francois Pascal MD | PCP | | + +------+ + Encounter Details +--------+ + + + + | Date | Type | Department | Care Team | Description | +--------+ + + + + | 10/15/ | Hospital | [facility] | Francois Pascal, | High risk medication | | 2016 | Encounter | MED CTR LABORATORY | [address] | use | | | | [address] [place] | [address], | | | | | [place] | [place] [address] | | | | | [address] | [phone] | | | | | [phone] | | | +--------+ + + + [...] | | | | | | [place] [address] | | | | | | [phone] | | | | | | | [...] + | [facility] | [address] | [place] | [phone] | | [facility] | | [address] | | | - LABORATORY | | [...] FILTRATION | mL/min/1.73m2 | [facility] | | | [place] | RATE,ESTIMATED | | MEDICAL | | | | mL/min/1.22t5Rxlw than | | CENTER - | | [...] [facility] | | | | | | [facility] | | | | | | MEDICAL [...] [address] | [place] | [phone] | | [facility] | | [address] | | | - LABORATORY | | | | + + + + + documented in this encounter Visit Diagnoses + + | Diagnosis | + + | High risk medication use Encounter for long-term (current) use of other medications | + + documented in this encounter"
--- OUTSIDE RECORDS SUMMARY | ~2019-09-12 | XMS | Encounter Summary ---
Demographics + + + | Address | [address] | | | [place] [address] | + + + | Home Phone [...] [facility] | | | and [place] | + + + | Organization | [facility] | | | and [place] | + + + | Address | Unknown | + + + | Phone | Unavailable | + + + Support + + + + + | Name | Relationship | Address | Phone | + + + + + | Sigrid Lennon | ECON | [address] | | | | | [place] [address] | | + + + + + | Valentín Saleh | ECON | [address] | | | | | [place] [address] | | + + + + + | Roberto Carlos Lennon | LEVI | Unknown | | + + + + + Care Team Providers + +------+ + | Care Manager Cardiac Name | Role | Phone | + [...] | | MD Jennifer | [address] | | | | | Hypertension | [address] | [place], | | | | | , renal | [address] | [place] | | | | | disease, | [place], | [address] | | | | | stage 1-4 or | [place] [address] | Phone: | | | | | unspecified | Phone: | [phone] | | | | | chronic | [phone] | Fax: | | | | | kidney | Fax: | [phone] | | | | | disease | [phone] | | | | | | Essential [...] | | | | | | Complete [place] | | | | | | | ECHO HEART | | | | | | | XTHOJUNO,CO | | | | | | | MPLETE W | | | | | | | DOPPLER [place] | | | | | | | [...] | | MD Jennifer | [address] | | | | | Hypertension | [address] | [place], | | | | | , renal | [address] | [place] | | | | | disease, | [place], | [address] | | | | | stage 1-4 or | [place] [address] | Phone: | | | | | unspecified | Phone: | [phone] | | | | | chronic | [phone] | Fax: | | | | | kidney | Fax: | [phone] | | | | | disease | [phone] | | | | | | Essential [...] | | | | | | Complete [place] | | | | | | | ECHO HEART | | | | | | | XTHORACIC,CO | | | | | | | MPLETE W | | | | | | | DOPPLER [place] | | | | | | | [...] + + | 03/11/ | Hospital | [facility] | Jennifer Gillespie, | Hypertension, renal | | 2017 | Encounter | MED CTR ECHO [address] | MD [address] | disease, stage 1-4 | | | | [address] [place] | [place], | or unspecified | | | | [place] [address] | [place] [address] | chronic kidney | | | | [phone] | [phone] | disease; Essential | | | | | | hypertension with | | | | | Yue Velásquez | goal blood pressure | | | | | A, Technologist | less than 130/80; | | | | | [place], [place] | CHRONIC KIDNEY | | | | | [address] | DISEASE STAGE III | | | [...] | | 0 | | | | Uhmyltl-Hxdetmnez-Hk | mouth Daily. 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, | | | [place] Age | | | 85 year(s) Interpreting BEVERLY | | | JENNIFER Job Site Supervisor | | | JENNIFER GILLESPIE MD Gender [...] | | | EF | | | Tdbwzttgh94% Left Ventricle Diastolic Dimension: 4.48 cm | [...] Volume: 55.29 ml | | | EF Ligqqpkno84% | | | | | | Left [...] Rad Results In - 03/11/2016 12:20 PM [facility] Transthoracic Echocardiography Report | | (TTE) Demographics Patient Name RADHA MEADOWS Room Number BRIDGET Patient | | Number [id number] Date of Study 03/11/2016 Visit Number [id number] | | Referring Physician BEVERLY RODRIGUEZ Number Date of | | 1930 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 | [place] | [phone] | | [facility] | | [address] | | | - IMAGING | | [...]
--- OUTSIDE RECORDS SUMMARY | ~2019-09-12 | XMS | Encounter Summary ---
Demographics + + + | Address | [address] | | | [place] [address] | + + + | Home Phone [...] | Author | [facility] | | | and [place] | + + + | Organization | [facility] [...] | | | | | [place] [address] | | + + + + + | Valentín Saleh | ECON | [address] | | | | | [place] [address] | | + + + + + | Roberto Carlos Lennon | LEVI | [place] | | + + + + + Care Team Providers + +------+ + | Care Keyseating Machine Set Up Operator Name | Role | Phone | + +------+ + PCP | Unavailable | + +------+ + Encounter Details +--------+ + + + + | Date | Type | Department | Care Team | Description | +--------+ + + + + | 08/01/ | Hospital | [facility] | | | | 2007 | Encounter | MED CTR LABORATORY | | | | | | [address] | | | | | | [place] | | | | | | [address] | | | | | | [phone] | | | +--------+ + + + [...] | | | | | | [place] [address] | | | | | | [phone] | | | | | | | | +--------+---------+ + + + documented as of this encounter Visit Diagnoses Not on filedocumented in this encounter"
--- OUTSIDE RECORDS SUMMARY | ~2019-09-12 | XMS | Encounter Summary ---
Demographics + + + | Address | [address] | | | [place] [address] | + + + | Home Phone [...] | [facility] | | | and [place]ana | + + + | Organization | [facility] | | [...] | | | | | [place] [address] | | + + + + + | Valentín Saleh | ECON | [address] | | | | | [place] [address] | | + + + + + | Roberto Carlos Lennon | LEVI | Unknown | | + + + + + Care Team Providers + +------+ + | Care Kitchen Porter Name | Role | Phone | + [...] [place], | | | | | [place] [address] | [place] [address] | | | | | [phone] | [phone] | | | | | | | [...] 1:42 PM PDTRx has been faxed to [facility] e elephone Encounter - Airma Perry RN - 07/29/2016 11:55 AM PDTPrescription sent to hotel front office manager [facility] e lephone Encounter - Airam Menjivar RN - 07/29/2016 8:39 AM PDTFax [facility] prescription to [facility] or to [facility] elephone Encounter - Epifanio Harris - 07/28/2016 3:23 PM PDTContact/C aller: Renee Moncada Contact Number: [phone] Provider/Nurse: Morasch Medication HYDROcodone-acetaminophen (NORCO) 5-325 mg per tablet Quantity 30 (they are asking for double amount) Amount of medication remaining None Last refill date 07-13-16 Pharmacy: [facility] Last Appointment: 07-19-16 Next Appointment: 08-19-16 documented [...] | | | | | | [place] [address] | | | | | | [phone] | | | | | | | | +--------+---------+ + + + documented as of this encounter Visit Diagnoses Not on filedocumented in this encounter"
--- OUTSIDE RECORDS SUMMARY | ~2019-09-12 | XMS | Encounter Summary ---
Demographics + + + | Address | [address] | | | [place] [address] | + + + | Home Phone [...] + | Author | [facility] | | | and [place] | + + + | Organization | [facility] | | [...] | | | | | [place] [address] | | + + + + + | Valentín Saleh | ECON | [address] | | | | | [place] [address] | | + + + + + | Roberto Carlos Lennon | LEVI | [place] | | + + + + + Care Team Providers + +------+ + | Care Physician Assistant Psychiatry Name | Role | Phone | + +------+ + PCP | Unavailable | + +------+ + Encounter Details +--------+ + + + + | Date | Type | Department | Care Team | Description | +--------+ + + + + | 09/21/ | Hospital | [facility] | | | | 1996 | Encounter | MED CTR EMERGENCY | | | | | | CENTER [address] | | | | | | [place] | | | | | | [address] | | | | | | [phone] | | | +--------+ + + + [...] | | | | | | [place] [address] | | | | | | [phone] | | | | | | | | +--------+---------+ + + + documented as of this encounter Visit Diagnoses Not on filedocumented in this encounter"
--- OUTSIDE RECORDS SUMMARY | ~2019-09-12 | XMS | Encounter Summary ---
Demographics + + + | Address | [address] | | | [place] [address] | + + + | Home Phone [...] | Author | [facility] | | | and [place] | + + + | Organization | [facility] [...] | | | | | [place] [address] | | + + + + + | Valentín Saleh | ECON | [address] | | | | | [place] [address] | | + + + + + | Roberto Carlos Lennon | LEVI | Unknown | | + + + + + Care Team Providers + +------+ + | Care High School Coordinator Name | Role | Phone | [...] + + | 01/09/ | Office | [facility] | Francois Pascal, | Diabetes mellitus | | 2015 | Visit | MEDICINE [address] | [address] | due to underlying | | | | [address]VE [place], | [address] [place], | condition with | | | | [place] [address] | [place] [address] | diabetic nephropathy | | | | [phone] | [phone] | (HCC) (Primary Dx); | | | [...] VSD Father 50 Pneumonia Family Hx of Glacier's chorea Sister and 2 brothers: CAD, Glacier's Disease to Catherine - with 2 Healthy Children No kidney [...] | Visit | | MD Bob Vasquez [place] | | | | | | [place] [place], | | | | | | [place] [address] | | | | | | [phone] | | | | | | | [...] [address] | [place] | [phone] | | [facility] | | [address] | | | - LABORATORY | | [...] ST. | [address] | [place], [place] | [phone] | | [facility] | | [address] | | | - LABORATORY | | [...] not | 37 (L)Comment: | >=60 | [facility] | | | | GLOMERULAR FILTRATION | mL/min/1.73m2 | [facility] | | | BULGARIAN | RATE,ESTIMATED | | MEDICAL | | | | mL/min/1.68j7Sfrp than | | CENTER - | | [...] | | Protein | | | [facility] | | [...] [address] | [place] | [phone] | | [facility] | | [address] | | | - LABORATORY | | [...]
--- OUTSIDE RECORDS SUMMARY | ~2019-09-12 | XMS | Encounter Summary ---
Demographics + + + | Address | [address] | | | [place] [address] | + + + | Home Phone [...] + | Author | [facility] | | | and [place] | + + + | Organization | [facility] | [...] | | | | | [place] [address] | | + + + + + | Valentín Saleh | ECON | [address] | | | | | [place] [address] | | + + + + + | Roberto Carlos Lennon | LEVI | [place] | | + + + + + Care Team Providers + +------+ + | Care Sort Line Name | Role | Phone | + +------+ + PCP | Unavailable | + +------+ + Encounter Details +--------+ + + + + | Date | Type | Department | Care Team | Description | +--------+ + + + + | 11/03/ | Hospital | [facility] | | | | 1999 | Encounter | MED CTR LABORATORY | | | | | | [address] | | | | | | [place] | | | | | | [address] | | | | | | [phone] | | | +--------+ + + + [...] | | | | | | [place] [address] | | | | | | [phone] | | | | | | | | +--------+---------+ + + + documented as of this encounter Visit Diagnoses Not on filedocumented in this encounter"
--- OUTSIDE RECORDS SUMMARY | ~2019-09-12 | XMS | Encounter Summary ---
[...] | Author | [facility] | | | and [place] | + + + | Organization | [facility] | | | and [...] | | | | | [place] [address] | | + + + + + | Valentín Saleh | ECON | [address] | | | | | [place] [address] | | + + + + + | Roberto Carlos Lennon | LEVI | Unknown | | + + + + + Care Team Providers + +------+ + | Care Shrink Pit Operator Name | Role | Phone | [...] | 06/17/ | Emergency | [facility] | Jose G Reich, | Contusion of head, | | 2015 | | MED CTR EMERGENCY | [place] [address] | unspecified part of | | | | CENTER [address] | [place] | head, initial | | | | [place] | [address] | encounter (Primary | | | | [address] | | Dx) | | | | [phone] | | | +--------+ + + + [...] sent through Care Everywhere.HEAD INJURIES: FIRST AID (ETHIOPIAN)documented in this encounter Medications at Time of [...] ([facility]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 infarction ([facility]) (1994&1996) CAR with Hx of Myocardial infarction Other abnormal clinical finding Verebral Compression Fractures Glossitis CAD (coronary artery disease) CHF (congestive heart failure) ([facility]) Arthritis [place] (myocardial infarction) Carotid stenosis H/O ventricular septal [...] Other (see comment) Other family history of [place]'s Disease Heart disease Sister Kidney disease Neg Hx SOCIAL HISTORY History Social History Marital Status: Spouse Name: Sigrid Number of Children: 2 Years of Education: N/A Occupational History Social History Main Topics Smoking status: Never Smoker Smokeless tobacco: Never Used Alcohol Use: No Drug Use: No Sexual Activity: Not on file Other Topics Concern None Social History Narrative Born in [facility] for 46 years. and [...] This is a preliminary report provided by [employer] KIRA Mendez. A final report is available at [facility]. CT [place] THOUT CONTRAST CLINICAL INFORMATION: [...] | | | | | | [place] [address] | | | | | | [phone] | | | | | | | [...]
--- OUTSIDE RECORDS SUMMARY | ~2019-09-12 | XMS | Encounter Summary ---
Demographics + + + | Address | [address] | | | [place] [address] | + + + | Home Phone [...] | Author | [facility] | | | and Clarkeana | + + + | Organization | [facility] | [...] | | | | | [place] [address] | | + + + + + | Valentín Saleh | ECON | [id number] | | | | | [place] [address] | | + + + + + | Roberto Carlos Lennon | LEVI | Unknown | | + + + + + Care Team Providers + +------+ + | Care Glost Placer Name | Role | Phone | + +------+ + | Francois Pascal MD | PCP | | + +------+ + Encounter Details +--------+ + + + + | Date | Type | Department | Care Team | Description | +--------+ + + + + | 03/01/ | Hospital | [facility] | Francois Pascal, | DM (diabetes | | 2013 | Encounter | MED CTR LABORATORY | [address] | mellitus) ([facility]) | | | | [address] | [address] [place], | | | | | [place] | [place] [address] | | | | | [address] | [phone] | | | | | [phone] | | | +--------+ + + + [...] | | | | | | [place] [address] | | | | | | [phone] | | | | | | | [...] | DIABETIC PATIENT RANGES: | | [facility] | | | | 6.2-7.0% = Well [...] + | [facility] | [address] | [place], [place] | [phone] | | [facility] | | [address] | | | - LABORATORY | | | | + + + + + | [facility] | [address] | [place], [place] | | | [facility] | | [address] [place] [address] | | | - LABORATORY | | [...] + | [facility] | [address] | [place], [place] | [phone] | | [facility] | | [address] | | | - LABORATORY | | | | + + + + + | [facility] | [address] | [place], [place] | | | [facility] | | [address] [place] [address] | | | - LABORATORY | | | | + + + + + documented in this encounter Visit Diagnoses + + | Diagnosis | + + | DM (diabetes mellitus) (HCC) Type II or unspecified type diabetes mellitus without | | mention of complication, not stated as uncontrolled | + + documented in this encounter"
--- OUTSIDE RECORDS SUMMARY | ~2019-09-12 | XMS | Encounter Summary ---
Demographics + + + | Address | [address] | | | [place] [address] | + + + | Home Phone [...] + | Author | [facility] | | | and Clarkeana | + + + | Organization | [facility] | [...] | | | | | [place] [address] | | + + + + + | Valentín Saleh | ECON | [id number] | | | | | [place] [address] | | + + + + + | Roberto Carlos Lennon | LEVI | [place] | | + + + + + Care Team Providers + +------+ + | Care Bread Jockey Name | Role | Phone | + +------+ + PCP | Unavailable | + +------+ + Encounter Details +--------+ + + + + | Date | Type | Department | Care Team | Description | +--------+ + + + + | 01/15/ | Hospital | [facility] | | | | 2002 | Encounter | MED CTR LABORATORY | | | | | | [address] | | | | | | [place] | | | | | | [address] | | | | | | [phone] | | | +--------+ + + + [...] | | | | | | [place] [address] | | | | | | [phone] | | | | | | | | +--------+---------+ + + + documented as of this encounter Visit Diagnoses Not on filedocumented in this encounter"
--- OUTSIDE RECORDS SUMMARY | ~2019-09-12 | XMS | Encounter Summary ---
Demographics + + + | Address | [address] | | | [place] [address] | + + + | Home Phone [...] Author | [facility] | | | and Clarkeana | + + + | Organization | [facility] [...] | | | | | [place] [address] | | + + + + + | Valentín Saleh | ECON | [address] | | | | | [place] [address] | | + + + + + | Roberto Carlos Lennon | LEVI | Unknown | | + + + + + Care Team Providers + +------+ + | Care Monomer Purification Operator Name | Role | Phone | [...] | 02/05/ | Refill | [facility] [place] | Stephenie Pual, | Medication Refill | | 2012 | | CARDIOLOGY [address] | MD [address] [place] | | | | | [place], | [place], | | | | | [place] [address] | [place] [address] | | | | | [phone] | [phone] | | | | | | | [...] | | | | | | [place] [address] | | | | | | [phone] | | | | | | | | +--------+---------+ + + + documented as of this encounter Visit Diagnoses Not on filedocumented in this encounter"
--- OUTSIDE RECORDS SUMMARY | ~2019-09-12 | XMS | Encounter Summary ---
Demographics + + + | Address | [address] | | | [place] [address] | + + + | Home Phone [...] Author | [facility] | | | and Clarkeana | + + + | Organization | [facility] [...] | | | | | [place] [address] | | + + + + + | Valentín Saleh | ECON | [address] | | | | | [place] [address] | | + + + + + | Roberto Carlos Lennon | LEVI | Unknown | | + + + + + Care Team Providers + +------+ + | Care Corn Cooker Name | Role | Phone | + +------+ + | Francois Pascla MD | PCP | | + +------+ + Reason for Visit + + + | Reason | Comments | + + + | Chronic Renal | stage three | | Failure | | + + + Encounter Details +--------+---------+ + + + | Date | Type | Department | Care Team | Description | +--------+---------+ + + + | 08/31/ | Office | [facility] | [place], | CHRONIC KIDNEY | | 2012 | Visit | NEPHROLOGY [address] | [address] | DISEASE STAGE III | | | | [address] | [address] | (MODERATE) (Primary | | | | [place] | [address] [place] | Dx); HTN CKD UNS | | | | [address] | [address] | W/CKD STAGE I THRU | | | | [phone] | | STAGE IV/UNS; | | | [...] + | Blood Pressure | 118/62 | 08/31/2012 9:39 AM | | | | | PDT | | + + + + + | Pulse | 60 | 08/31/2012 9:39 AM | | | | | PDT [...] + + + + | Weight | 75.4 kg (166 lb 4.8 | 08/31/2012 9:39 AM | | | | oz) | PDT | | + + + + + | Height | 158.8 cm (5' 2.5") | 08/31/2012 9:39 AM | | | | | PDT | | + + + + + | Body Mass Index | 29.93 | 08/31/2012 9:39 AM | | | | | PDT | | + + + + + documented in this encounter Patient Instructions Patient Instructions Kemar Herndon ARNP - 08/31/2012 9:58 AM PDTPlease monitor b lood pressure at home. Goal <130/80. Notify office if not within goal. Diabetic goals: Hgb A1c <7% and blood sugars 90-140. Please avoid taking NSAIDs. These are some commonly used NSAIDs: ibuprofen (Motrin,Advil), naproxen (Aleve, Naprosyn), celecoxib (Celebrex), indomethacin (Indocin), meloxicam (Mobic). documented in this encounter Progress Notes Kemar Herndon ARNP - 08/31/2012 9:46 AM PDTFormatting of this note might be diff erent from the original. Nephrology Follow Up Visit Date: 08/31/2012 PCP: Francois Pascal HPI: Alyson Lennon is a 81 y.o. female following up for CKD. 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 Corado, hyperlipidemia, gout, glossitis, and vitamin D deficiency. Home blood pressure 120s/60s. Today she reports being in her usual state of health since visit, without any illnesses or hospitalizations. She is proud of her granddaughters and recently went to one of their weddings. Patient Active Problem List Diagnosis Date Noted [...] Outpatient Prescriptions Marked as Taking for the 08/31/12 encounter (Office Visit) with LAURO Kern Medication Sig Dispense Refill amLODIPine (NORVASC) 5 mg tablet Take 1 tablet by mouth [...] 50,000 Units by mouth Once a wee kVa fluticasone (FLONASE) 50 mcg/nasal spray 2 sprays each nostril daily folic acid 1 mg tablet Take 1 tablet by mouth Daily. 90 tablet 3 furosemide (LASIX) 40 mg tablet TAKE 1 TABLET BY MOUTH EVERY DAY 90 tablet 3 insulin glargine (LANTUS) 100 units/mL injection Inject 70 Units under the skin nightly . JANUVIA 100 MG tablet TAKE 1 TABLET BY MOUTH EVERY DAY 90 each 1 LIDEX 0.05 % cream APPLY ONE DAUB TOPICALLY ONCE DAILY 60 g 0 lisinopril (PRINIVIL,ZESTRIL) 40 MG tablet TAKE 1 TABLET BY MOUTH EVERY DAY 90 tablet 3 methotrexate 2.5 mg tablet TAKE 5 TABLETS BY MOUTH WEEKLY. 20 tablet 1 multivitamin (THERAGRAN) per tablet Take 1 by mouth daily niacin (NIASPAN) 500 mg CR tablet Take 1 tablet by mouth Daily. 30 tablet 6 NOVOLOG 100 UNIT/ML injection INJECT DIRECTED, 15 UNITS IN THE MORNING, 20 UNITS BEF ORE LUNCH AND 25 UNITS BEFORE DINNER 20 mL 5 simvastatin (ZOCOR) 40 mg tablet TAKE 1/2 TABLET BY MOUTH EVERY DAY 135 tablet 1 TOPROL XL 200 MG 24 hr tablet TAKE 1 TABLET BY MOUTH EVERY DAY 90 each 1 ZYLOPRIM 100 MG tablet TAKE 1 TABLET BY MOUTH TWICE DAILY 180 each 3 Allergies Allergen Reactions Codeine Sulfate Uknown Darvon Nausea Only Estrogens Unknown ROS: Some chronic edema left lower leg since ankle fracture 3 years ago. Denies anorexia, f atigue, chest pain, dyspnea, orthopnea, edema, nausea, vomiting, dysuria, hematuria, urinary frequency. Physical Exam: Filed Vitals: 08/31/12 0939 BP: 118/62 Pulse: 60 Height: 1.588 m (5' 2.5") Weight: 75.433 kg (166 lb 4.8 oz) Constitutional: Elderly female, appears well-developed and [...] distension or tenderness. Musculoskeletal: Trace peripheral edema, left lower leg, compression stocking in place. Neurological: Alert. Skin: Skin is warm. No rash. Psychiatric: Normal mood and affect. Labs reviewed with patient: Lab Results Component Value Date CREA 1.09 06/23/2012 BUN 21* 06/23/2012 NA 137 06/23/2012 K 3.9 06/23/2012 CL 102 06/23/2012 CO2 27 06/23/2012 Lab Results Component Value Date PTH 53 06/23/2012 CALCIUM 9.5 06/23/2012 CALCIUM 9.2 06/23/2012 PHOS 3.2 06/23/2012 ALBUMIN Date Value Range Status 06/23/2012 3.8 3.2 - 5.0 gm/dL Final Estimated GFR Date Value Range Status 06/23/2012 48* >60 mL/min/A Final For -Americans, please multiply the result by 1.210 This is an estimated GFR and is based on a standard adult body mass (A=1.73m2) and serum creatinine Lab Results Component Value Date WBC 9.2 06/23/2012 HGB 13.6 06/23/2012 HCT 40.3 06/23/2012 MCV 108.0* 06/23/2012 Hgb A1c 7.2% (8.1%) Recent Results (from the past 24 hour(s)) POCT URINALYSIS Component Value Range POC COLOR UA Yellow POC CLARITY UA Clear POC GLUCOSE UA Negative POC BILIRUBIN UA Negative POC KETONES UA Negative Negative POC SPECIFIC GRAVITY UA 1.005 POC BLOOD UA Negative POC PH UA 5.0 POC PROTEIN UA Negative POC UROBILINOGEN UA 0.2 POC NITRITE UA Negative POC LEUKOCYTE ESTERASE UA Trace RED SUB UA Negative ICTOTEST Negative REMARK Assessment/Plan: Problem # 1: CHRONIC KIDNEY DISEASE STAGE III (MODERATE) (ICD-585.3) 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 Fortunately now overt proteinuria currently. Serum creatinine is stable, below previous baseline. Renal ultrasound showed normal sized kidneys without hydronephrosis, with increased echogen icity. Discussed continued goal of preserving kidney function with good glycemic and blood pressur e control. Also avoidance of nephrotoxins such as NSAIDs and contrast imaging. She is on WILLA inhibitor therapy. Problem # 2: HTN CKD UNS W/CKD STAGE I THRU STAGE IV/UNS (ICD-403.90) Blood pressure appears to be quite well controlled on current regimen. No change to medicat ions Problem # 3: DIABETES MELLITUS, TYPE II, CONTROLLED, WITH COMPLICATIONS (ICD-250.90) Neuropathy, retinopathy and likely nephropathy. Control appears to be improving recently. F ollowed by primary provider. Problem # 4: VITAMIN D DEFICIENCY (ICD-268.9) On supplementation. Calcium phos and PTH are within goal. Follow up in 6 months, sooner if needed. Labs prior including renal panel, MICROALBUMIN/cr ratio. Patient verbalized agreement and understanding of above plan. CC: Francois Pascal [facility] Review of Systems Physical Exam docunara i jessie this encounter Plan of Treatment +--------+---------+ + + + | Date | Type | Specialty | Care Team | Description | +--------+---------+ + + + | 12/06/ | Office | Cardiology | Stephenie Paul, | | | 2019 | Visit | | MD [address] | | | | | | [place], | | | | | | [place] [address] | | | | | | [phone] | | | | | | | | +--------+---------+ + + + documented as of this encounter Procedures + +--------+ + + + | Procedure Name | Priori | Date/Time | Associated Diagnosis | Comments | | | ty | | | | + +--------+ + + + | POCT URINALYSIS, | Routin | 08/31/2012 | CHRONIC KIDNEY | Results for this | | AUTO WITH CONF | e | 9:30 AM | DISEASE STAGE III | procedure are in the | | | | PDT | (MODERATE) | results section. | + +--------+ + + + documented in this encounter Results POCT Urinalysis Dipstick Automated (08/31/2012 9:30 AM PDT) + + + + [...] | 1.005 | | | | | [place], | | | | | | UA, [...] + | Urobilinoge | 0.2 | | | | | n, UA, POC | | | | | + + + + + + | Nitrite, | Negative | | | | | UA, POC | | | | | + + + + + + | Leukocyte | Trace | | | | | Esterase, | [...]
--- OUTSIDE RECORDS SUMMARY | ~2019-09-12 | XMS | Encounter Summary ---
Demographics + + + | Address | [address] | | | [place] [address] | + + + | Home Phone [...] Author | [facility] | | | and Clarkeana | + + + | Organization | [facility] | | [...] | | | | | [place] [address] | | + + + + + | Valentín Saleh | ECON | [address] | | | | | [place] [address] | | + + + + + | Roberto Carlos Lennon | LEVI | Unknown | | + + + + + Care Team Providers + +------+ + | Care Nurses Supervisor Name | Role | Phone | + +------+ + | Francois Pascal MD | PCP | | + +------+ + Encounter Details +--------+ + + + + | Date | Type | Department | Care Team | Description | +--------+ + + + + | 08/19/ | Orders Only | [facility] | Misael Haynes, | Type 2 diabetes | | 2017 | | LABORATORY SERVICE | MD [address] | mellitus with | | | | [address] | [place] | complication, with | | | | [place] | [address] | long-term current | | | | [address] | | use of insulin | | | | [phone] | | (HCC); CHRONIC | | | [...] | 2019 | Visit | | [address] [facility] | | | | | | [place], | | | | | | [place] [address] | | | | | | [phone] | | | | | | | [...] - 1.030 | [facility] | | | [place], | | | [facility] | | [...] [address] | [place] | [phone] | | [facility] | | [address] | | | - LABORATORY | | [...] | 0.93 | 0.60 - 1.30 | [facility] | | | | | mg/dL | [facility] | | | | | | MEDICAL | | | | | | CENTER - | | | | | | LABORATORY | | + + + + + + | eGFR if not | 57 (L)Comment: | >=60 | [facility] | | | | GLOMERULAR FILTRATION | mL/min/1.73m2 | [facility] | | | BELARUSIAN | RATE,ESTIMATED | | MEDICAL | | | | mL/min/1.36c6Rivs than | | CENTER - | | [...] [address] | [place] | [phone] | | [facility] | | [address] | | | - LABORATORY | | [...] | [facility] | [address] | [place] | [phone] | | [facility] | | [address] | | | - LABORATORY | | [...]
--- OUTSIDE RECORDS SUMMARY | ~2019-09-12 | XMS | Encounter Summary ---
Demographics + + + | Address | [address] | | | [place] [address] | + + + | Home Phone [...] | [facility] | | | and Clarkeana | + + + | Organization | [facility] [...] | | | | | [place] [address] | | + + + + + | Valentín Saleh | ECON | [address] | | | | | [place] [address] | | + + + + + | Roberto Carlos Lennon | LEVI | Unknown | | + + + + + Care Team Providers + +------+ + | Care Agronomy Research Manager Name | Role | Phone | [...] + + | 02/01/ | Office | [facility] | [place], | Hyperlipidemia, | | 2017 | Visit | CARDIOLOGY [address] | [address]URO [address] | mixed (Primary Dx); | | | | [place], | [place], | Stenosis of carotid | | | | [place] [address] | [place] [address] | artery, unspecified | | | | [phone] | [phone] | laterality; | | | | | | Hypertriglyceridemia | | | | | | ; Coronary artery | | | | | | disease involving | | | | | | cherokee coronary | | | | | | artery of cherokee | | | | | | heart [...] documented as of this encounter Progress Notes Charla Lynn ARNP - 02/01/2017 12:45 PM PSTFormatting [...] undergo surgery and followed back in 6 m [facility] after procedure or sooner if any concerns. [...] renal complications Glossitis Coronary artery disease involving cherokee coronary artery of cherokee heart without angina pectoris Hyperlipidemia, mixed AMI [...] rectally Daily as needed for Constipation. 0 Vyxywzo-Pdqnkmgon-Xyyqmrf D (CALCIUM 500 PO) Take 1 capsule [...] abnormality, worse in Inferior leads Confirmed by ROSALBA VERDUGO MD ([id number]) on 07/13/2016 7:24:19 AM LAB RESULTS reviewed during visit today primarily from [facility]: LIPID Lab Results Component Value Date [...] Extensive history of coronary artery disease involving cherokee coronary artery of cherokee heart without angina pectoris: A. Status post [...] Patient is in a class I of [place] Heart Associati on functional class. Physical exam [...] this chart may have been created with Checki[employer] voice recognition software. Occasi onal wrong-word or sound-alike substitutions may have occurred due to the inherent greene itations of voice recognition software. Please read the chart carefully and recognize, using context, where these substitutions have occurred. YN[place]wick in th is encounter Plan of Treatment +--------+---------+ + + + | Date | Type | Specialty | Care Team | Description | +--------+---------+ + + + | 12/06/ | Office | Cardiology | Stephenie Paul, | | | 2019 | Visit | | MD Bob Sheehan | | | | | | [place], | | | | | | [place] [address] | | | | | | [phone] | | | | | | | | +--------+---------+ + + + documented as of this encounter Visit Diagnoses + + | Diagnosis | + + | Hyperlipidemia, mixed - Primary Mixed hyperlipidemia | + + | Stenosis of carotid artery, unspecified laterality | + + | Hypertriglyceridemia Pure hyperglyceridemia | + + | Coronary artery disease involving cherokee coronary artery of cherokee heart without | | angina pectoris | [...]
--- OUTSIDE RECORDS SUMMARY | ~2019-09-12 | XMS | Encounter Summary ---
Demographics + + + | Address | [address] | | | [place] [address] | + + + | Home Phone [...] | Author | [facility] | | | and Clarkeana | + + + | Organization | [facility] | | [...] | | | | | [place] [address] | | + + + + + | Valentín Saleh | ECON | [address] | | | | | [place] [address] | | + + + + + | Roberto Carlos Lennon | LEVI | [place] | | + + + + + Care Team Providers + +------+ + | Care Cut Roll Machine Operator Name | Role | Phone | + +------+ + PCP | Unavailable | + +------+ + Encounter Details +--------+ + + + + | Date | Type | Department | Care Team | Description | +--------+ + + + + | 11/15/ | Hospital | [facility] | | | | 1999 | Encounter | MED CTR XRAY [address] | | | | | | [place] | | | | | | [place] [address] | | | | | | [phone] | | | +--------+ + + + [...] | | | | | | [place] [address] | | | | | | [phone] | | | | | | | | +--------+---------+ + + + documented as of this encounter Visit Diagnoses Not on filedocumented in this encounter"
--- OUTSIDE RECORDS SUMMARY | ~2019-09-12 | XMS | Encounter Summary ---
Demographics + + + | Address | [address] | | | [place] [address] | + + + | Home Phone [...] | | | | | [place] [address] | | + + + + + | Valentín Saleh | ECON | [address] | | | | | [place] [address] | | + + + + + | Roberto Carlos Lennon | LEVI | Unknown | | + + + + + Care Team Providers + +------+ + | Care Leather Finisher Name | Role | Phone | [...] | (MODERATE) (Primary | | | | [place], [place] | [address] [facility] [place] | Dx); Type 2 diabetes | | | | [address] | [address] | mellitus with | | | | [phone] | | hyperglycemia (HCC); | | | [...] for nephrology appt on 06/06/14 sent to [facility] documented in this encounter Plan [...] | | | | | | [place] [address] | | | | | | [phone] | | | | | | | [...] [address] | [place] | [phone] | | [facility] | | [address] | | | - LABORATORY | | [...] + | [facility] | [address] | [place] | [phone] | | [facility] | | [address] | | | - LABORATORY | | [...] | | MEDICAL | | | | mL/min/1.65l3Ekdr than | | CENTER - | | [...] ST. | [address] | [place] | [phone] | | [facility] | | [address] | | | - LABORATORY | | [...]
--- OUTSIDE RECORDS SUMMARY | ~2019-09-12 | XMS | Encounter Summary ---
Demographics + + + | Address | [address] | | | [place] [address] | + + + | Home Phone [...] Author | [facility] | | | and Clarkeana | + + + | Organization | [facility] [...] | | | | | [place] [address] | | + + + + + | Valentín Saleh | ECON | [address] | | | | | [place] [address] | | + + + + + | Roberto Carlos Lennon | LEVI | Unknown | | + + + + + Care Team Providers + +------+ + | Care Moccasin Sewer Name | Role | Phone | [...] + + | 03/01/ | Office | [facility] | Francois Pascal, | DM (diabetes | | 2012 | Visit | [facility] [place] | [address] | mellitus) (HCC) | | | | [address] | [address] [place], | (Primary Dx); | | | | [place] | [place] [address] | Hyperlipidemia; | | | | [address] | [phone] | HYPERTENSION NEC; | | | | [phone] | | CHRONIC KIDNEY | | | [...] VSD Father 50 Pneumonia Family Hx of Nashua's chorea Sister and 2 brothers: CAD, Nashua's Disease to [place] - with 2 Healthy Children No kidney [...] | Visit | | MD [address] [place] | | | | | | [place], | | | | | | [place] [address] | | | | | | [phone] | | | | | | | [...] - 1.030 | [facility] | | | [place], | | | [facility] | | [...] | n, Urine | | | [facility] | | | | | | [...] [address] | [place] | [phone] | | [facility] | | [address] | | | - LABORATORY | | | | + + + + + | [facility] | [address] | [place] | | | [facility] | | [address] | | | - [...] + | [facility] | [address] | [place] | [phone] | | [facility] | | [address] | | | - LABORATORY | | | | + + + + + | [facility] | [address] | [place], [place] | | | [facility] | | [address], [facility] | | | - LABORATORY [...] | 1.10 | 0.60 - 1.30 | [facility] | | | | | mg/dL | [facility] | | | | | | MEDICAL | | | | | | CENTER - | | | | | | LABORATORY | | + + + + + + | eGFR if not | 48 (L)Comment: | >=60 | [facility] | | | | GLOMERULAR FILTRATION | mL/min/1.73m2 | [facility] | | | INDONESIAN | RATE,ESTIMATED | | MEDICAL | | | | mL/min/1.39j7Zste than | | CENTER - | | [...] + | [facility] | [address] | [place], [place] | [phone] | | [facility] | | [address] | | | - LABORATORY | | | | + + + + + | [facility] | [address] | [place], [place] | | | [facility] | | [address] | | | - LABORATORY | [...] | + + + + + | [facility] | [address] | [place] | [phone] | | [facility] | | [address] | | | - LABORATORY | | | | + + + + + | [facility] | [address] | [place] | | | [facility] | | [id number] [place] [address] | | | - LABORATORY | | [...]
--- OUTSIDE RECORDS SUMMARY | ~2019-09-12 | XMS | Encounter Summary ---
Demographics + + + | Address | [address] | | | [place] [address] | + + + | Home Phone [...] + | Author | [facility] | | | and Clarkeana | + + + | Organization | [facility] | [...] | | | | | [place] [address] | | + + + + + | Valentín Saleh | ECON | [address] | | | | | [place] [address] | | + + + + + | Roberto Carlos Lennon | LEVI | Unknown | | + + + + + Care Team Providers + +------+ + | Care Bankruptcy Assistant Name | Role | Phone | + +------+ + | Francois Pascal MD | PCP | | + +------+ + Encounter Details +--------+ + + + + | Date | Type | Department | Care Team | Description | +--------+ + + + + | 05/22/ | Hospital | [facility] | [place], | CHRONIC KIDNEY | | 2013 | Encounter | [facility] CTR LAB[facility]ORY | [address] | DISEASE STAGE III | | | | [address] [place] | [address] | (MODERATE); | | | | [place], [place] | [address] [place], [place] | HYPERTENSION NEC; | | | | [address] | [address] | Vitamin D | | | | [phone] | | deficiency; Diabetes | | | | | Francois Pascal, | mellitus (HCC); | | | | | [address] | Hyperlipidemia; DM | | | | | [address] [place], | (diabetes mellitus) | | | | | [place] [address] | (HCC) | | | | | [phone] | | | | | | | [...] | | | | | | [place] [address] | | | | | | [phone] | | | | | | | [...] - 1.030 | [facility] | | | [place], | | | [facility] | | | Urine | | | MEDICAL | | | | | | CENTER - | | | | | | LABORATORY | | + + + + + + | Protein, | Negative | Negative, | [facility] | | | Urine | | Trace, 30 mg/dL | [facility] | | | [...] [address] | [place] | [phone] | | [facility] | | [address] | | | - LABORATORY | | | | + + + + + | [facility] | [address] | [place] | | | [facility] | | [address], [facility] | | [...] + | [facility] | [address] | [place], [place] | [phone] | | [facility] | | [address] | | | - LABORATORY | | | | + + + + + | [facility] | [address] | [place], [place] | | | [facility] | | [address] [place] [address] | | | - LABORATORY | | [...] (H) | 7 - 18 mg/dL | [facility] | | | | | | [facility] | | | | | | MEDICAL | | | | | | CENTER - | | | | | | LABORATORY | | + + + + + + | Creatinine | 1.10 | 0.60 - 1.30 | [facility] | | | | | mg/dL | [facility] | | | | | | MEDICAL | | | | | | CENTER - | | | | | | LABORATORY | | + + + + + + | eGFR if not | 48 (L)Comment: | >=60 | [facility] | | | | GLOMERULAR FILTRATION | mL/min/1.73m2 | [facility] | | | COLOMBIAN | RATE,ESTIMATED | | MEDICAL | | | | mL/min/1.96h5Xljo than | | CENTER - | | [...] + | [facility] | [address] | [place], [place] | [phone] | | [facility] | | [address] | | | - LABORATORY | | | | + + + + + | [facility] | [address] | [place], [place] | | | [facility] | | [address], [facility] | | [...] + | [facility] | [address] | [place] | [phone] | | [facility] | | [address] | | | - LABORATORY | | | | + + + + + | [facility] | [address] | [place] | | | [facility] | | [address] | | | - LABORATORY [...] [address] | [place] | [phone] | | [facility] | | [address] | | | - LABORATORY | | | | + + + + + | [facility] | [address] | [place] | | | [facility] | | [address], [facility] | | [...] + | [facility] | [address] | [place], [place] | [phone] | | [facility] | | [address] | | | - LABORATORY | | | | + + + + + | [facility] | [address] | [place], [place] | | | [facility] | | [address], [facility] | | [...] (H) | 7 - 18 mg/dL | [facility] | | | | | | [facility] | | | | | | MEDICAL | | | | | | CENTER - | | | | | | LABORATORY | | + + + + + + | Creatinine | 1.07 | 0.60 - 1.30 | [facility] | | | | | mg/dL | [facility] | | | | | | MEDICAL | | | | | | CENTER - | | | | | | LABORATORY | | + + + + + + | eGFR if not | 49 (L)Comment: | >=60 | [facility] | | | | GLOMERULAR FILTRATION | mL/min/1.73m2 | [facility] | | | COLOMBIAN | RATE,ESTIMATED | | MEDICAL | | | | mL/min/1.38t5Uwoh than | | CENTER - | | [...] [address] | [place] | [phone] | | [facility] | | [address] | | | - LABORATORY | | | | + + + + + | [facility] | [address] | [place], [place] | | | [facility] | | [address], [facility] | | [...]
--- OUTSIDE RECORDS SUMMARY | ~2019-09-12 | XMS | Encounter Summary ---
Demographics + + + | Address | [address] | | | [place] [address] | + + + | Home Phone [...] | Author | [facility] | | | and [place]ana | + + + | Organization | [facility] | [...] | | | | | [place] [address] | | + + + + + | Valentín Saleh | ECON | [address] | | | | | [place] [address] | | + + + + + | Roberto Carlos Lennon | LEVI | Unknown | | + + + + + Care Team Providers + +------+ + | Care Documentation Coordinator Name | Role | Phone | [...] | | | | [place], [place] | [address] Phone: | | | | | | [address] | [phone] | | | | | | Phone: | Fax: | | | | | | [phone] | [phone] | | | | | | Fax: | | | | | | | [phone] | | +--------+ + + + + + Encounter Details +--------+---------+ + + + | Date | Type | Department | Care Team | Description | +--------+---------+ + + + | 07/30/ | Office | [facility] | Glenn Miramontes | Left ankle pain | | 2014 | Visit | PHYSIATRY [address] | T[address] | (Primary Dx) | | | | [address] | [place], [place] | | | | | [place], [place] | [address] | | | | | [address] | | | | | | [phone] | | | +--------+---------+ + + + [...] DM type 2 (diabetes mellitus, type 2) (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) (1994&1996) CAR with Hx of Myocardial infarction Other abnormal clinical finding Verebral Compression Fractures Glossitis CAD (coronary artery disease) CHF (congestive heart failure) ([facility]) Arthritis Old HI (myocardial infarction) Carotid stenosis H/O ventricular septal [...] Other (See Comment) Other family history of [place]'s Disease Other (See Comment) Other No kidney [...] has no apparent deficits with short or skilled nursing memory. She has appropriate fund of knowledge [...] 2019 | Visit | | MD [facility] | | | | | | [place] [place], | | | | | | [place] [address] | | | | | | [phone] | | | | | | | [...] ST. | [address] | [place], [place] | [phone] | | [facility] | | [address] | | | - IMAGING | | | | + + + + + documented in this encounter Visit Diagnoses + + | Diagnosis | + + | Left ankle pain - Primary Pain in joint, ankle and foot | + + documented in this encounter
--- OUTSIDE RECORDS SUMMARY | ~2019-09-12 | XMS | Encounter Summary ---
Demographics + + + | Address | [address] | | | [place] [address] | + + + | Home Phone [...] | [facility] | | | and Clarkeana | + + + | Organization | [facility] [...] | | | | | [place] [address] | | + + + + + | Valentín Saleh | ECON | [address] | | | | | [place] [address] | | + + + + + | Roberto Carlos Lennon | LEVI | Unknown | | + + + + + Care Team Providers + +------+ + | Care Electrical Wirer Name | Role | Phone | + +------+ + | Francois Pascal MD | PCP | | + +------+ + Reason for Visit + +--------+ + | Reason | Onset | Comments | | | Date | | + +--------+ + | Medication | 04/04/ | | | Management | 2019 | | + +--------+ + Encounter Details +--------+ + + + + | Date | Type | Department | Care Team | Description | +--------+ + + + + | 04/04/ | Telephone | [facility] | Francois Pascal, | Medication | | 2018 | | MEDIC[facility] [place] | [address] | Management | | | | [address] | [address] [place], | | | | | [place] | [place] [address] | | | | | [address] | [phone] | | | | | [phone] | | | +--------+ + + + [...] Telephone Encounter - Leanne Johnson RN - 04/04/2018 3:09 PM PSTXarelto dose decreased . Medication list updated. New prescription sent to [facility] documented in this encounter Plan of Treatment +--------+---------+ + + + | Date | Type | Specialty | Care Team | Description | +--------+---------+ + + + | 12/06/ | Office | Cardiology | Stephenie Paul, | | | 2019 | Visit | | MD [address] | | | | | | [place], | | | | | | [place] [address] | | | | | | [phone] | | | | | | | | +--------+---------+ + + + documented as of this encounter Visit Diagnoses Not on filedocumented in this encounter"
--- OUTSIDE RECORDS SUMMARY | ~2019-09-12 | XMS | Encounter Summary ---
Demographics + + + | Address | [address] | | | [place] [address] | + + + | Home Phone [...] | Author | [facility] | | | and Clarkeana | + + + | Organization | [facility] [...] | | | | | [place] [address] | | + + + + + | Valentín Saleh | ECON | [address] | | | | | [place] [address] | | + + + + + | Roberto Carlos Lennon | LEVI | Unknown | | + + + + + Care Team Providers + +------+ + | Care Head Of Precision Targeting Name | Role | Phone | + [...] Refill | | 2013 | | [facility] [place] | [address] | | | | | [address] | [address] [place], | | | | | [place] | [place] [address] | | | | | [address] | [phone] | | | | | [phone] | | | +--------+--------+ + + + [...] | | | | | | [place] [address] | | | | | | [phone] | | | | | | | | +--------+---------+ + + + documented as of this encounter Visit Diagnoses Not on filedocumented in this encounter"
--- OUTSIDE RECORDS SUMMARY | ~2019-09-12 | XMS | Encounter Summary ---
Demographics + + + | Address | [address] | | | [place] [address] | + + + | Home Phone [...] Author | [facility] | | | and Clarkeana | + + + | Organization | [facility] | [...] | | | | | [place] [address] | | + + + + + | Valentín Saleh | ECON | [address] | | | | | [place] [address] | | + + + + + | Roberto Carlos Lennon | LEVI | Unknown | | + + + + + Care Team Providers + +------+ + | Care Computer Technician Name | Role | Phone | + +------+ + | Francois Pascal MD | PCP | | + +------+ + Encounter Details +--------+ + + + + | Date | Type | Department | Care Team | Description | +--------+ + + + + | 02/16/ | Hospital | [facility] | Francois Pascal, | High risk medication | | 2016 | Encounter | MED CTR LABORATORY | [address] | use; Type 2 | | | | [address] [place] | [address] [place], | diabetes mellitus | | | | [place], [place] | [place] [address] | with stage 3 chronic | | | | [address] | [phone] | kidney disease | | | | [phone] | | (HCC) | +--------+ + + [...] | | 0 | | | | Wfzlcys-Trhvrgpqf-Df | mouth Daily. | | | | [...] | | | | | | [place] [address] | | | | | | [phone] | | | | | | | | +--------+---------+ + + + documented as of this encounter Procedures + +--------+ + + + | Procedure Name | Priori | Date/Time | Associated Diagnosis | Comments | | | ty | | | | + +--------+ + + + | CBC WITH | Routin | 02/17/2016 | High risk | Results for this | | DIFFERENTIAL | e | 9:00 AM | medication use | procedure are in the | | | | PST | | results section. | + +--------+ + + + | HEMOGLOBIN A1C | Routin | 02/17/2016 | Type 2 diabetes | Results for this | | | e | 9:00 AM | mellitus with stage | procedure are in the | | | | PST | 3 chronic kidney | results section. | | | | | disease (HCC) | | + +--------+ + + + | COMPREHENSIVE | Routin | 02/17/2016 | High risk | Results for this | | METABOLIC PANEL | e | 9:00 AM | medication use | procedure are in the | | | | PST | | results section. | + +--------+ + + + documented in this encounter Results Hemoglobin A1C (02/17/2016 9:00 [...] ST. | [address] | [place] | [phone] | | [facility] | | [address] | | | - LABORATORY | | | | + + + + + CBC with Differential (02/17/2016 9:00 AM PST) [...] ST. | [address] | [place] | [phone] | | [facility] | | [address] | | | - LABORATORY | | [...] 1.59 (H) | 0.60 - 1.30 | [facility] | | | | | mg/dL | [facility] | | | | | | MEDICAL | | | | | | CENTER - | | | | | | LABORATORY | | + + + + + + | eGFR if not | 31 (L)Comment: | >=60 | [facility] | | | | GLOMERULAR FILTRATION | mL/min/1.73m2 | [facility] | | | CHINESE | RATE,ESTIMATED | | MEDICAL | | | | mL/min/1.41d0Nihj than | | CENTER - | | [...] ST. 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
--- OUTSIDE RECORDS SUMMARY | ~2019-09-12 | XMS | Encounter Summary ---
Demographics + + + | Address | [address] | | | [place] [address] | + + + | Home Phone [...] Author | [facility] | | | and [place]ana | + + + | Organization | [facility] | [...] | | | | | [place] [address] | | + + + + + | Valentín Saleh | ECON | [address] | | | | | [place] [address] | | + + + + + | Roberto Carlos Lennon | LEVI | Jeyson | | + + + + + Care Team Providers + +------+ + | Care Rod Puller And Coiler Name | Role | Phone | + +------+ + PCP | Unavailable | + +------+ + Encounter Details +--------+ + + + + | Date | Type | Department | Care Team | Description | +--------+ + + + + | 01/20/ | Hospital | [facility] | Francois Pascal, | | | 2009 | Encounter | MED CTR LABORATORY | [address] | | | | | [address] [place] | [address] [place], | | | | | [place] | [place] [address] | | | | | [address] | [phone] | | | | | [phone] | | | +--------+ + + + [...] | | | | | | [place] [address] | | | | | | [phone] | | | | | | | | +--------+---------+ + + + documented as of this encounter Visit Diagnoses Not on filedocumented in this encounter"
--- OUTSIDE RECORDS SUMMARY | ~2019-09-12 | XMS | Encounter Summary ---
Demographics + + + | Address | [address] | | | [place] [address] | + + + | Home Phone [...] | [facility] | | | and [place] | + + + | Organization | [facility] | | [...] | | | | | [place] [address] | | + + + + + | Valentín Saleh | ECON | [address] | | | | | [place] [address] | | + + + + + | Roberto Carlos Lennon | LEVI | Unknown | | + + + + + Care Team Providers + +------+ + | Care Manager Psychology Name | Role | Phone | + [...] | Glenn Richards MD | [address] | | | | | is of left | [address] | Burton Heck | | | | | ankle | [place] | [place] | | | | | Procedures | [place] | [address] | | | | | Sent to [facility] | [address] | Phone: | | | | | 10/05 | Phone: | [phone] | | | | | | [phone] | Fax: | | | | | | Fax: | [phone] | | | | | | [phone] | | +--------+ + + + + [...] + | 10/02/ | Telephone | [facility] | Glenn Miramontes | Referral | | 2015 | | PHYSIATRY [address] | TMD [address] | | | | | [address] | [place], [place] | | | | | [place], [place] | [address] | | | | | [address] | | | | | | [phone] | | | +--------+ + + + [...] be sent to a provider in the [facility] which she is fine with. Patient is [...] | | | | | | [place] [address] | | | | | | [phone] | | | | | | | [...]
--- OUTSIDE RECORDS SUMMARY | ~2019-09-12 | XMS | Encounter Summary ---
Demographics + + + | Address | [address] | | | [place] [address] | + + + | Home Phone [...] | Author | [facility] | | | and [place] | + + + | Organization | [facility] [...] | | | | | [place] [address] | | + + + + + | Valentín Saleh | ECON | [address] | | | | | [place] [address] | | + + + + + [...] | instability | [address] | [place] | | | | n | [address] | [place], | | | | | (ICD-10-CM) | [place] | [place] [address] | | | | | - 7[address] | [place] | Phone: | | | | | (ICD-9-CM) - | [address] | [phone] | | | | | Gait | Phone: | Fax: | | | | | instability | [phone] | [phone] | | | | | Procedures | Fax: | | | | | | pt eval | [phone] | | +--------+ + + + + + Encounter Details +--------+---------+ + + + | Date | Type | Department | Care Team | Description | +--------+---------+ + + + | 01/23/ | Office | [facility] | Francois Pascal, | Posture imbalance | | 2015 | Visit | MED CTR THERAPY PT | [address] | (Primary Dx); | | | | OP [address] | [address] [place], | Impaired functional | | | | [place] | [place] [address] | mobility, balance, | | | | [address] | [phone] | gait, and endurance; | | | | [phone] | | Left ankle pain | | | | | Kely Quinn B, PT | | | | | | [address] | | | | | | [place] | | | | | | [address] | | | | | | | [...] might be different from t sridevi original. [facility] CTR THERAPY PT OP [address] [place] [address] Physical Therapy Daily Treatment Note Date: 01/23/2015 [...] | 2019 | Visit | | [address] | | | | | | [place], | | | | | | [place] [address] | | | | | | [phone] | | | | | | | [...]
--- OUTSIDE RECORDS SUMMARY | ~2019-09-12 | XMS | Encounter Summary ---
Demographics + + + | Address | [address] | | | [place] [address] | + + + | Home Phone [...] | Author | [facility] | | | and [place] | + + + | Organization | [facility] | [...] | | | | | [place] [address] | | + + + + + | Valentín Saleh | ECON | [address] | | | | | [place] [address] | | + + + + + | Roberto Carlos Lennon | LEVI | Unknown | | + + + + + Care Team Providers + +------+ + | Care Sidewalk Repairer Name | Role | Phone | + +------+ + | Francois Pascal MD | PCP | | + +------+ + Encounter Details +--------+ + + + + | Date | Type | Department | Care Team | Description | +--------+ + + + + | 02/26/ | [facility] | [place] | Francois Pascal, | ARTHRITIS, CHRONIC | | 2013 | Encounter | MED CTR LABORATORY | [address] | | | | | [address] [place] | [address] [place], | | | | | [place], [place] | [place] [address] | | | | | [address] | [phone] | | | | | [phone] | | | +--------+ + + + [...] | | | | | | [place] [address] | | | | | | [phone] | | | | | | | [...] + | [facility] | [address] | [place] | [phone] | | [facility] | | [address] | | | - LABORATORY | | | | + + + + + | [facility] | [address] | [place], [place] | | | [facility] | | [address] | | | - LABORATORY [...] | | | | | gm/dL | [facility] | | | | | [...] + | [facility] | [address] | [place] | [phone] | | [facility] | | [address] | | | - LABORATORY | | | | + + + + + | [facility] | [address] | [place], [place] | | | [facility] | | [address] | | | - LABORATORY | | | | + + + + + documented in this encounter Visit Diagnoses + + | Diagnosis | + + | ARTHRITIS, CHRONIC Arthropathy, unspecified, site unspecified | + + documented in this encounter"
--- OUTSIDE RECORDS SUMMARY | ~2019-09-12 | XMS | Encounter Summary ---
Demographics + + + | Address | [address] | | | [place] [address] | + + + | Home Phone [...] | [facility] | | | and [place] | + + + | Organization | [facility] [...] | | | | | [place] [address] | | + + + + + | Valentín Saleh | ECON | [id number] | | | | | [place] [address] | | + + + + + | Roberto Carlos Lennon | LEVI | Unknown | | + + + + + Care Team Providers + +------+ + | Care Business Support Professional Name | Role | Phone | + +------+ + | Francois Pascal MD | PCP | | + +------+ + Encounter Details +--------+ + + + + | Date | Type | Department | Care Team | Description | +--------+ + + + + | 12/18/ | Orders Only | [facility] | Francois Pascal, | Type I (juvenile | | 2011 | | MEDIC[facility] [place] | [address] | type) diabetes | | | | [address] | [address] [place], | mellitus without | | | | [place] | [place] [address] | mention of | | | | [address] | [phone] | complication, not | | | | [phone] | | stated as | | | | | | uncontrolled ([facility]) | | | | | | [...] | | | | | | [place] [address] | | | | | | [phone] | | | | | | | [...] + | [facility] | [address] | [place], [place] | [phone] | | [facility] | | [address] | | | - LABORATORY | | | | + + + + + | [facility] | [address] | [place], [place] | | | [facility] | | [address] [place] [address] | | | - LABORATORY | | | | + + + + + documented in this encounter Visit Diagnoses + + | Diagnosis | + + | Type I (juvenile type) diabetes mellitus without mention of complication, not stated | | as uncontrolled - Primary | + + documented in this encounter"
--- OUTSIDE RECORDS SUMMARY | ~2019-09-12 | XMS | Encounter Summary ---
Demographics + + + | Address | [address] | | | [place] [address] | + + + | Home Phone [...] Author | [facility] | | | and [place] | + + + | Organization | [facility] [...] | | | | | [place] [address] | | + + + + + | Valentín Saleh | ECON | [address] | | | | | [place] [address] | | + + + + + | Roberto Carlos Lennon | LEVI | Unknown | | + + + + + Care Team Providers + +------+ + | Care Lock Master Name | Role | Phone | [...] + + | 11/16/ | Office | [facility] | Francois Pascal, | Cellulitis and | | 2018 | Visit | MED[facility] [place] | [address] | abscess of foot | | | | [address] | [address] [place], | (Primary Dx); Leg | | | | [place] | [place] [address] | edema, left | | | | [address] | [phone] | | | | | [phone] | | | +--------+---------+ + + + [...] VSD Father 50 Pneumonia Family Hx of Meriden's chorea Sister and 2 brothers: CAD, Airam's Disease to Sigrid - with 2 Healthy Children No kidney disease in family. Social History: Born in [facility] for [facility] years. and Remarried [...] | | | | | | [place] [address] | | | | | | [phone] | | | | | | | | +--------+---------+ + + + documented as of this encounter Results VAS Lower [...] ordering provider, by the | | | platen press feeder, immediately following the exam. Dictated and | [...] to the ordering provider, by the | |platen press feeder, immediately following the exam. | | | [...]
--- OUTSIDE RECORDS SUMMARY | ~2019-09-12 | XMS | Encounter Summary ---
Demographics + + + | Address | [address] | | | [place] [address] | + + + | Home Phone | | + + + | Preferred Language | Unknown | + + + | Marital Status | Single | + + + | Scientology Affiliation | UNK | + + + [...] | | | | | [place] [address] | | + + + + + | None None | ECON | Unknown | Unavailable | + + + + + Care Team Providers + +------+ + | Care Bindery Leadperson Name | Role | Phone | + [...] as of this encounter Progress Notes Interface, Felt Hat Inspector And Packer In - 01/07/2005 5:03 AM PST [id number] 01/05/2005 01/05/2005 [id number] SAJI Sheridan [address] [place] [address] or January 05, 2005 Frank Bolton MD [address] [place] [id number] RE: ALYSON LENNON MR #: [id number] Dear Quique, I did have the opportunity to meet and evaluate Alyson Lennon in the Otolaryngology Clinic at [facility] today. As you know, Mrs. Lennon is [...] has been suggested to her by her inside barrel polisher. She has also been tried on a [...] a nondrinker. She is , lives in [place]. Her ECOG performance status is 1. On [...] to her progress. Sincerely, Fabio Blankenship M.D. [facility] / [place] [id number] / [id number] / [id number] / documented i n this encounter Plan of Treatment Not on filedocumented as of this encounter Visit Diagnoses Not on filedocumented in this encounter"
--- OUTSIDE RECORDS SUMMARY | ~2019-09-12 | XMS | Encounter Summary ---
Demographics + + + | Address | [address] | | | [place] [address] | + + + | Home Phone [...] Author | [facility] | | | and Clarkeana | + + + | Organization | [facility] | [...] | | | | | [place] [address] | | + + + + + | Valentín Saleh | ECON | [phone] | | | | | [place] [address] | | + + + + + | Roberto Carlos Lennon | LEVI | Unknown | | + + + + + Care Team Providers + +------+ + | Care Associate Civil Engineer Name | Role | Phone | [...] + | 10/21/ | Office | [facility] | Francois Pascal, | UTI (lower urinary | | 2015 | Visit | MEDICINE [address] | [address] | tract infection) | | | | [address] [place], | [address] [place], | (Primary Dx); | | | | [place] [address] | [place] [address] | Cerebral contusion | | | | 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
--- OUTSIDE RECORDS SUMMARY | ~2019-09-12 | XMS | Encounter Summary ---
Demographics + + + | Address | [address] | | | [place] [address] | + + + | Home Phone [...] | Author | [facility] | | | and Clarkeana | + + + | Organization | [facility] | [...] | | | | | [place] [address] | | + + + + + | Valentín Saleh | ECON | [address] | | | | | [place] [address] | | + + + + + | Roberto Carlos Lennon | LEVI | Unknown | | + + + + + Care Team Providers + +------+ + | Care Trust Mail Clerk Name | Role | Phone | [...] + + | 02/01/ | Office | [facility] | [place], | Hyperlipidemia, | | 2017 | Visit | CARDIOLOGY [address] | [address] | mixed (Primary Dx); | | | | [place], | [place], | Stenosis of carotid | | | | [place] [address] | [place] [address] | artery, unspecified | | | | [phone] | [phone] | laterality; | | | | | | Hypertriglyceridemia | | | | | | ; Coronary artery | | | | | | disease involving | | | | | | takotna coronary | | | | | | artery of takotna | | | | | | heart [...] surgery and followed back in 6 m [facility] after procedure or sooner if any [...] renal complications Glossitis 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 Status post [...] Patient is in a class I of [place] [facility] on functional class. Physical exam [...] this chart may have been created with Clarabridge voice recognition software. Occasi onal wrong-word or [...] | | | | | | [place] [address] | | | | | | [phone] | | | | | | | | +--------+---------+ + + + documented as of this encounter Visit Diagnoses + + | Diagnosis | + + | Hyperlipidemia, mixed - Primary Mixed hyperlipidemia | + + | Stenosis of carotid artery, unspecified laterality | + + | Hypertriglyceridemia Pure hyperglyceridemia | + + | Coronary artery disease involving takotna coronary artery of takotna heart without | | angina pectoris | [...]
--- OUTSIDE RECORDS SUMMARY | ~2019-09-12 | XMS | Encounter Summary ---
Demographics + + + | Address | [address] | | | [place] [address] | + + + | Home Phone [...] Author | [facility] | | | and [place]ana | + + + | Organization | [facility] | | [...] | | | | | [place] [address] | | + + + + + | Valentín Saleh | ECON | [phone] | | | | | [place] [address] | | + + + + + | Roberto Carlos Lennon | LEVI | Unknown | | + + + + + Care Team Providers + +------+ + | Care Striper Spray Gun Name | Role | Phone | + [...] + | 04/12/ | Office | [facility] | Francois Pascal, | Diabetes mellitus | | 2018 | Visit | MEDICINE [address] | [address] | due to underlying | | | | [address], | [address] [place], | condition with | | | | [place] [address] | [place] [address] | hyperglycemia, with | | | | [phone] | [phone] | long-term current | | | | [...] less confused. There is no burning with [employer]. Pt denies any confusion. 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 Social History: Born in [facility] for 47 [...] | | | | | | [place] [address] | | | | | | [phone] | | | | | | | [...]
--- OUTSIDE RECORDS SUMMARY | ~2019-09-12 | XMS | Encounter Summary ---
Demographics + + + | Address | [address] | | | [place] [address] | + + + | Home Phone [...] Author | [facility] | | | and [place] | + + + | Organization | [facility] [...] | | | | | [place] [address] | | + + + + + | Valentín Saleh | ECON | [address] | | | | | [place] [address] | | + + + + + | Roberto Carlos Lennon | LEVI | Unknown | | + + + + + Care Team Providers + +------+ + | Care Poultry Breeder Name | Role | Phone | + [...] Description | +--------+--------+ + + + | 08/15/ | Refill | [facility] | Francois Pascal, | Medication Refill | | 2013 | | MEDICINE [place] | [address] | | | | | [address] | [address] [place] [place], | | | | | [place] | [place] [address] | | | | | [address] | [phone] | | | | | [phone] | | | +--------+--------+ + + + [...] | | | | | | [place] [address] | | | | | | [phone] | | | | | | | | +--------+---------+ + + + documented as of this encounter Visit Diagnoses Not on filedocumented in this encounter"
--- OUTSIDE RECORDS SUMMARY | ~2019-09-12 | XMS | Encounter Summary ---
Demographics + + + | Address | [address] | | | [place] [address] | + + + | Home Phone [...] Author | [facility] | | | and [place] | + + + | Organization | [facility] | [...] | | | | | [place] [address] | | + + + + + | Valentín Saleh | ECON | [address] | | | | | [place] [address] | | + + + + + | Roberto Carlos Lennon | LEVI | Unknown | | + + + + + Care Team Providers + +------+ + | Care Technology Project Manager Name | Role | Phone [...] | 08/25/ | Telephone | [facility] | Francois Pascal, | Results | | 2016 | | MEDICINE [address] | [address] | | | | | [address] [place], | [address] [place], | | | | | [place] [address] | [place] [address] | | | | | [phone] | [phone] | | | | | | | [...] | | | | | | [place] [address] | | | | | | [phone] | | | | | | | | +--------+---------+ + + + documented as of this encounter Visit Diagnoses Not on filedocumented in this encounter"
--- OUTSIDE RECORDS SUMMARY | ~2019-09-12 | XMS | Encounter Summary ---
Demographics + + + | Address | [address] | | | [place] [address] | + + + | Home Phone [...] Author | [facility] | | | and [place] | + + + | Organization | [facility] [...] | | | | | [place] [address] | | + + + + + | Valentín Saleh | ECON | [phone] | | | | | [place] [address] | | + + + + + | Roberto Carlos Lennon | LEVI | Unknown | | + + + + + Care Team Providers + +------+ + | Care Metal Temperer Name | Role | Phone | + +------+ + | No, Physician | PCP | Unavailable | + +------+ + Encounter Details +--------+ + + + + | Date | Type | Department | Care Team | Description | +--------+ + + + + | 07/31/ | Lab | [facility] | Francois Pascal, | Encounter for | | 2019 | Requisition | MED CTR LABORATORY | [address] | screening for other | | | | [address] [place] | [address], | viral diseases | | | | [place], [place] | [place] [address] | | | | | [address] | [phone] | | | | | [phone] | | | +--------+ + + + [...] | | | | | | [place] [address] | | | | | | [phone] | | | | | | | [...] in this encounter Results HIV AG/AB, 4th GenDax (07/30/2018 3:45 PM PDT) + + + [...] + + | Performed at: [facility] - [facility] [address], | REFERENCE LAB | | [place], [place] [id number] Chief Medical Officer: Brian Lacy MD, Phone: | NATAL[place] - [place]THONY | | [phone] | | + + + + + + + + | Performing | Address | City/State/Zipcode | Phone Number | | Organization | | | | + + + + + | REFERENCE LAB | [address] | [place], [place] | [phone] | | [facility] | [place] | [address] | | + + + + + [...] | | Ab, Rapid | | | [facility] | | | | | | MEDICAL | | | | | | CENTER - | | | | | | LABORATORY | | + + + + + + | HIV-1 P24 | Non-Reactive | Non-Reactive | [facility] | | | Ag | | | [facility] | | [...] [address] | [place] | [phone] | | [facility] | | [address] | | | - LABORATORY | | [...] test | | | | | | ([id number]). | | | | + + + + + + + + | Specimen | + + | Blood | + + + + + | Narrative | Performed At | + + + | Performed at: [address] - [facility] [address], | REFERENCE LAB | | [place], [place] [id number] Chief Medical Officer: Brian Lacy MD, Phone: | NATAL[place] - [place]THONY | | [phone] | | + + + + + + + + | Performing | Address | City/State/Zipcode | Phone Number | | Organization | | | | + + + + + | REFERENCE LAB | [address] | [place], [place] | [phone] | | [facility] | [place] | [address] | | + + + + + documented in this encounter Visit Diagnoses + + | Diagnosis | + + | Encounter for screening for other viral diseases | + + documented in this encounter"
--- OUTSIDE RECORDS SUMMARY | ~2019-09-12 | XMS | Encounter Summary ---
Demographics + + + | Address | [address] | | | [place] [address] | + + + | Home Phone [...] | Author | [facility] | | | and [place] | + + + | Organization | [facility] | [...] | | | | | [place] [address] | | + + + + + | Valentín Saleh | ECON | [address] | | | | | [place] [address] | | + + + + + | Roberto Carlos Lennon | LEVI | [place] | | + + + + + Care Team Providers + +------+ + | Care Garage Laborer Name | Role | Phone | + +------+ + PCP | Unavailable | + +------+ + Encounter Details +--------+ + + + + | Date | Type | Department | Care Team | Description | +--------+ + + + + | 05/09/ | Hospital | [facility] | | | | 2006 | Encounter | MED CTR XRAY [address] | | | | | | [place] | | | | | | [place] [address] | | | | | | [phone] | | | +--------+ + + + [...] | | | | | | [place] [address] | | | | | | [phone] | | | | | | | | +--------+---------+ + + + documented as of this encounter Visit Diagnoses Not on filedocumented in this encounter"
--- OUTSIDE RECORDS SUMMARY | ~2019-09-12 | XMS | Encounter Summary ---
Demographics + + + | Address | [address] | | | [place] [address] | + + + | Home Phone [...] Author | [facility] | | | and [place] | + + + | Organization | [facility] | [...] | | | | | [place] [address] | | + + + + + | Valentín Saleh | ECON | [address] | | | | | [place] [address] | | + + + + + | Roberto Carlos Lennon | LEVI | Unknown | | + + + + + Care Team Providers + +------+ + | Care Naval Aircrewman Tactical Helicopter Name | Role | Phone | + +------+ + | Francois Pascal MD | PCP | | + +------+ + Encounter Details +--------+ + + + + | Date | Type | Department | Care Team | Description | +--------+ + + + + | 09/10/ | Hospital | [facility] | Francois Pascal, | HYPERTENSION NEC; | | 2015 | Encounter | MED CTR LABORATORY | [address] | Hyperlipidemia; Type | | | | [address] [place] | [address] [place], | 2 diabetes mellitus | | | | [place], [place] | [place] [address] | with hyperglycemia | | | | [address] | [phone] | ([facility]); DM (diabetes | | | | [phone] | | mellitus); CHRONIC | | | [...] | | | | | | [place] [address] | | | | | | [phone] | | | | | | | [...] 1.030 | [facility] | | | [place], | | | [facility] | | [...] [address] | [place] | [phone] | | [facility] | | [address] | | | - LABORATORY | | [...] + | [address] | [address] | [place] | [phone] | | [facility] | | [address] | | | - LABORATORY | | [...] [address] | [place] | [phone] | | [facility] | | [address] | | | - LABORATORY | | [...] [address] | [place] | [phone] | | [facility] | | [address] | | | - LABORATORY | | [...] (H) | 7 - 18 mg/dL | [facility] | | | | | | [facility] | | | | | | MEDICAL | | | | | | CENTER - | | | | | | LABORATORY | | + + + + + + | Creatinine | 1.39 (H) | 0.60 - 1.30 | [facility] | | | | | mg/dL | [facility] | | | | | | MEDICAL | | | | | | CENTER - | | | | | | LABORATORY | | + + + + + + | eGFR if not | 36 (L)Comment: | >=60 | [facility] | | | | GLOMERULAR FILTRATION | mL/min/1.73m2 | [facility] | | | EQUATORIAL GUINEAN | RATE,ESTIMATED | | MEDICAL | | | | mL/min/1.08u6Fpem than | | CENTER - | | [...] [address] | [place] | [phone] | | [facility] | | [address] | | | - LABORATORY | | [...]
--- OUTSIDE RECORDS SUMMARY | ~2019-09-12 | XMS | Encounter Summary ---
Demographics + + + | Address | [address] | | | [place] [address] | + + + | Home Phone [...] | Author | [facility] | | | and [place] | + + + | Organization | [facility] | | | and [place] | + + + | Address | Unknown | + + + | Phone | Unavailable | + + + Support + + + + + | Name | Relationship | Address | Phone | + + + + + | Sigrid Garcia | ECON | [address] | | | | | [place] [address] | | + + + + + | Valentín Saleh | ECON | [address] | | | | | [place] [address] | | + + + + + | Roberto Carlos Garcia | LEVI | Unknown | | + + + + + Care Team Providers + +------+ + | Care Land Sales Agent Name | Role | Phone | [...] | | | | | | | ([facility]) | | | | | [...] + + | 07/10/ | Surgery | [facility] | Ru Soriano | [facility] | | 2017 | | MED CTR OR INTRA OP | MD [address] | FEMORAL TROCHANTERIC | | | | [address] | [facility] | NAIL | | | | [place] | [place] [address] | | | | | [address] | [phone] | | | | | [phone] | | | +--------+---------+ + + + [...] + + + | Blood Pressure | 192/73 | 07/10/2016 12:28 PM | | | | | PDT | | + + + + + | Pulse | 65 | 07/10/2016 12:28 PM | | | | | PDT | | + + + + + | Temperature | 36.4 C (97.6 F) | 07/10/2016 8:43 AM | | | | | PDT | | + + + + + | Respiratory Rate | 16 | 07/10/2016 11:27 AM | | | | | PDT | | + + + + + | Oxygen Saturation | 98% | 07/10/2016 12:28 PM | | | | | PDT | | + + + + + | Inhaled Oxygen | - | - | | | Concentration | | | | + + + + + | Weight | 69.9 kg (154 lb) | 07/10/2016 8:43 AM | | | [...] Eddy MD - 07/13/2016 12:12 PM PDT [facility] DISCHARGE SUMMARY Pt. Name/Age/: Alyson Garcia [...] 7. 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 Specialty: Nursing Home Facility Contact information: [address] [place] [place] [address] Soriano for orthopedic follow-up [...] Dr. Ru Soriano and taken to [facility] on 07/10 for ORIF with intramedullary nena [...] stomatitis approx imately 20 years ago at [facility] and was advised they thought this [...] signed by: Josiah Eddy MD, 07/13/2016 12:13 [facility] Portions of this chart may have been created with [employer] voice recognition software. Occasi onal wrong-word or [...] | | 0 | | | | Dpqylgw-Pwzbwstpv-Vu | mouth Daily. | | | | [...] Davis MD - 07/12/2016 3:50 PM PDT [facility] HOSPITALIST PROGRESS NOTE Patient: Alyson Garcia : 1930: Age: 85 y.o. MedRec: [id number] PCP: Vernon Yoder MD Admission date: 07/10/2016 [...] 10 mg 10 mg Intravenous Q4H PRN eH Davis MD 10 mg at 07/10/16 1808 [...] New-onset A. 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 Total time of approximately 25 minutes was spent with the patient and/or patient's family, and/or on the patient's floor/unit, of which more than 50% was spent counseling and/or coord ination the patient's care as outlined above. He Davis 07/12/2016 15:51 [facility] Brea Jay RN - 07/12/2016 10:30 [...] Aliza Bateman RN - 07/11/2016 5:44 PM [id number] report from Ramakrishna , assumed care of this pt. Pt sitting up in chair with chair alarm inplace. Electronically signed by: Aliza Sanchez RN 07/11/2016 17:46 Shelia Acevedo MD - 07/11/2016 1:59 PM PDT [facility] HOSPITALIST PROGRESS NOTE Patient: Alyson Garcia : 1930: Age: 85 y.o. MedRec: [id number] PCP: Vernon Yoder MD Admission date: 07/10/2016 [...] 3 completed shifts: In: 2087 [I.V.:2087] Out: 1680 [Urine:1650; Blood:30] PHYSICAL EXAM: Gen Mckenzie - [...] Daily He Davis MD 5 mg at 07/11/16827 aspirin EC tablet 81 mg 81 mg Oral Daily He Davis MD 81 mg at 07/11/16827 atorvaSTATin (LIPITOR) tablet 40 mg 40 mg [...] as outlined above. He Davis 07/11/2016 13:59 [facility] Ru Royal MD - 07/11/2016 11:29 AM PDTOrtho: PO day 1 Sitting up in a chair and states very little pain Dressing intact without drainage NVM intact Continue PT, toe touch wt bearing Will probably need SNF placement.Electronically signed by Ru Soriano MD at 07/11 11:31 AM Monica Marie [...] office: [x] Pharmacy list names: [facility] [x] [facility] (Prescription Monitoring Program) [x] [employer] insurance [...] performed and electronically signed by Jose Myers, Customs Investigator 017 13:09 Reviewed by: Michelle Cabrera PHARMD 07/10/2016 13:45 documented in this encounter H&P Notes He Davis MD - 07/10/2016 10:55 AM PDT [facility] HISTORY AND PHYSICAL Pt. Name/Age/: [...] to advanced dementia and history obtained from reuben and family members at bedside. 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 IUDEBPW-PRUQCHAQX-WOBAISR D (CALCIUM 500 PO) Take 1 capsule [...] DVT Prophylaxis heparin Code Status Full Code. [facility] Documentation I expect this patient will be hospitalized for greater than 2-midnights and expect the post -hospital plan to be discharge to a skilled or intermediate care nursing facility. Total of 45 minutes were required to complete the admission process. Electronically signed by: He Davis MD 07/10/2016 10:55 [facility] documented in this enc ounter Consult Notes Ru Soriano MD - 07/10/2016 10:14 AM PDT [address] [address] CONSULTATION RU SORIANO MD Patient: ALYSON GARCIA Admitting: LISANDRA BHATIAWOJCIECH MR #: [id number] LOC: PT TYPE: Adm Date: 07/10/2016 : [...] 07/10/2016 10:14:52 Transcribed on 07/10/2016 10:51:59 by [facility] job# [id number] Confirmation #: [id number] cc: VERNON YODER MD documented in this encounter ED Notes Em Melendez RN - 07/10/2016 1:11 PM PDTDr. Ring took pt to OR. Personal belongi ngs with pt. Vernon Velasco MD - 07/10/2016 8:40 AM PDTFormatting of this note might be different fro m the original. 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 LGABVBO-ZGIGFYWAF-IGQKSTP D (CALCIUM 500 PO) Take 1 capsule [...] Other (see comment) Other family history of [place]'s Disease Heart disease Sister Kidney disease Neg Hx Social History Social History Marital Status: Spouse Name: Sigrid Number of Children: 2 Years of Education: N/A Occupational History Social History Main Topics Smoking status: Never Smoker Smokeless tobacco: Never Used Alcohol Use: No Drug Use: No Sexual Activity: Not Asked Other Topics Concern None Social History Narrative Born in [facility] for [...] were reviewed along with EMS notes and prison record s if applicable. (See chart for [...] fracture of left hip, closed, initial encounter ([facility]) S72.142A 820.21 2. Fall at home, initial [...] Portions of this chart were created with [employer] voice recognition software. Inadvertent so und alike [...] Pushed Discharge information to Renee Giang through [employer]. SNF packet complete. roustabout supervisor time: 1600. Staff and family notified. Electronically signed by: Carisa Tubbs 07/13/2016 14:15 [facility] Transfer - Jackie Eddy MD - 07/13/2016 12:04 PM PDTFormatting of this note might be different from the marline saldana [facility] TRANSFER ORDERS Patient Name: Alyson Garcia Patient : 1930 Gender: female Date of Admission: 07/10/2016 Date of Discharge: 07/13/2016 Admitting Provider: He Davis MD Discharging Provider: Josiah Eddy MD Consultants: Ru Soriano MD PCP: Vernon Yoder [facility] transferring to: [facility] Provider after transfer: Vernon Yoder MD CODE STATUS: [x] Attempt CPR [] Do not resuscitate If patient is pulseless and not breathing, RN/COURT ORDERLY may pronounce . Advanced Directives included: [] [...] fracture of left hip, closed, initial encounter ([facility]) Patient Active Problem List Diagnosis CAROTID STENOSIS AMAUROSIS FUGAX DEMYELINATING DISEASE, CENTRAL NERVOUS SYSTEM FRACTURE, ANKLE, LEFT Gout, unspecified OSTEOARTHRITIS, ANKLE, LEFT FATIGUE VIRAL URI HYPERTRIGLYCERIDEMIA VITAMIN D DEFICIENCY Hypertension, renal disease DM type 2, uncontrolled, with renal complications Glossitis Coronary artery disease involving [place] coronary artery of [place] heart without angina pectoris Hyperlipidemia, mixed AMI [...] DOSE (ADULT) 11/18/2005 Diet: [] As tolerated WASTE MANAGEMENT SPECIALIST may upgrade or downgrade diet as condition [...] [x] OT Evaluation & Management for: [] WASTE MANAGEMENT SPECIALIST Evaluation &Management for: [] Other: Wound/Skin Care: [x] Follow current recommendations or Dr Chelsey MD Blood sugar assessment: QID glucoscans with coverage based of sliding scale Follow up appointments and consultations: Date/Time: Date/Time I have advised this patient that [...] MOUTH EVERY DAY aka: PRINIVIL, ZESTRIL By: Chellizeth Wilson Fackenthall Quant: 30 tablet metoprolol succinate [...] aka: NOVOLOG SITagliptin 100 mg tablet aka: Josiah MENDOZA MD, certify that post hospital prison care is medically necessa ry on a continuing basis for any of the conditions for which he/she received care during thi s hospitalization. Check one: [x] Skilled [] Intermediate Additional Orders/Instructions: Physician's signature: 07/13/2016 12:[address] [facility] NURSING FACILITY USE ONLY: [] Admitting [...] impact her ability to complete ADLs at [facility]. Pt will dc to SNF however will benefit from additional OT sessions while at hospital to address deficets. Occupational Therapy Discharge Recommendations are: Recommended discharge disposition: prison facility Post discharge occupational therapy recommendation: ongoing [...] in supported seat EOB. Bathing, Level of [place]: verbal cues required, maximal assist (25% patient effort), supervised, stand by assist Assistive Device: none Bathing Assess/Train, Position: supported sitting Bathing Assess/Train, Impairments: pain, strength decreased (Cognitive deficits) Groomed sitting up in chair, LLE propped on pillows. Requires redirection throughout. Hus band assisted in applying toothpaste on toothbrush. Grooming, Level of [place]: minimal assist (75% patient effort), verbal cues required Bed Mobility Pt w/ increased pain during bed mobility and extreme difficulty mobilizing to EOB. Pt requi red max A x 2 and HOB raised to reach modified seated position EOB. Assistive Device: bed rails Supine to Sit, Level of [place]: 2 person assist required, dependent ( less [...] Status not addressed at 07/13/2016 1150 STG [place] Level minimum assist (75% patient effort) at 07/13/2016 1150 STG Adaptive Equipment none at 07/13/2016 1150 Toilet Transfer Goal Most Recent Value STG Status not addressed at 07/13/2016 1150 STG [place] Level contact guard assist at 07/13/2016 1150 STG Assistive Device 2 wheeled walker (FWW) at 07/13/2016 1150 Tub/Shower Transfer Goal Most Recent Value Tub/Shower Type walk in shower stall at 07/13/2016 1150 STG Status not addressed at 07/13/2016 1150 STG [place] Level contact guard assist at 07/13/2016 1150 [...] y. Left hip pain, pt tolerates 1 [place]. CMS intact. Pt is heavy transfer, requires roberta Jiménez in place. anticipate D/C to [facility] today. Pt unsure of last BM, [...] movement, oxycodone ma de pt sleepy, use [place] and straight tylenol - pt tolerated well, heels floated, drsg to lef t hip old dry drainage, PPP, cap<3, CSM-intact, MAX asst w/ skylift to chair, urban intact, BT hypo meds given, fluid encouraged, [...] Therapy Discharge Recommendations are: Recommended discharge disposition: prison facility Post discharge physical therapy recommendation: will [...] difficulty maintaining wt bearing. Bed-Chair, Level of [place]: moderate assist (50% patient effort), 2 person assist req uired Chair-Bed, Level of [place]: (NT as pt was left seated in recliner) Iaa-Rjnqe-Zud, Assistive Device: 2 wheeled walker (FWW) Sit-Stand, Level of [place]: moderate assist (50% patient effort), 2 person assist req uired, verbal cues required Stand-Sit, Level of [place]: 2 person assist required, minimal assist (75% patient eff ort), verbal cues required Vgh-Hojwq-Svt, Assistive Device: 2 wheeled walker (FWW) Maintain Weight Bearing Status: assist to maintain weight bearing status Safety Issues: balance decreased during turns, sequencing ability decreased Impairments: motor control impaired, coordination impaired, impaired balance, strength decr eased, pain Bed Mobility Pt w/ increased pain and increased difficulty mobilizing in bed Assistive Device: bed rails Supine to Sit, Level of [place]: maximal assist (25% patient effort), 2 person assist required Sit to Supine, Level of [place]: (NT as pt was left seated in [...] STG Review Date 07/16/16 at 07/11/2016 1007 Gqyfuu-Umd-Ymldva Goal Most Recent Value STG Status continued/progressing at 07/12/2016 1421 STG [place] Level independent at 07/11/2016 1007 STG Assistive Device none at 07/11/2016 1007 Dhn-Tapkt-Ydx Goal Most Recent Value STG Status continued/progressing at 07/12/2016 1421 STG [place] Level contact guard assist at 07/11/2016 1007 STG Assistive Device 2 wheeled walker (FWW) at 07/11/2016 1007 Xfg-Sehdd-Ewf Goal Most Recent Value STG Status continued/progressing at 07/12/2016 1421 STG [place] Level contact guard assist at 07/11/2016 1007 STG Assistive Device 2 wheeled walker (FWW) at 07/11/2016 1007 Gait Goal Most Recent Value STG Status continued/progressing at 07/12/2016 1421 STG [place] Level contact guard assist at 07/11/2016 1007 STG Assistive Device 2 wheeled walker (FWW) at 07/11/2016 1007 STG Distance (feet) 50 at 07/11/2016 1007 Electronically signed by: Sujey Valentin, PT, 07/12/2016 14:25 lan of Carisa Resendiz - 07/12/2016 1:01 PM PDTMet with the spouse and son this morning to answer all t heir questions and concerns about discharging tomorrow. Answered all their questions regardi ng Medicare coverage for the Rehab facility ([facility]) They would like to see Alyson go to [facility]. This CM let them know that she may discharge t omorrow. [facility] has accepted her once she is medically stable. Electronically signed by: Carisa Tubbs 07/12/2016 13:17 lan of Christaino Montelongo, CARMELITA - 07/12/2016 10:36 AM PDTProblem: [...] CMS is intact. Denies numbness and tingling. Jiménez catheter draining clear yellow urine. Tolerating diet well, de nies nausea at this time. lan of Aliaz Baker RN - 07/11/2016 6:10 PM PDTProblem: Patient [...] PCP is Dr. Yoder and she uses [facility]. She states she will need a SNF rehab stay and she only chooses [facility]. Facility preference form signed and placed in ghost chart. SNF referral sent to Renee Giang via [facility]. to continue to follow. Electronically signed by: Rena Aguilar RN 07/11/2016 12:19 Received call from Zejanice at [facility], she states they can accept Ms. Garcia when she is medically stable for discharge. Electronically signed by: Rena Aguilar RN 07/11/2016 13:22 lan of Care - Helena Motta, OT - 07/11/2016 12:10 PM PDT Problem: [...] Therapy Discharge Recommendations are: Recommended discharge disposition: prison facility Post discharge occupational therapy recommendation: family [...] off electrodes on abdomen. Bathing, Level of [place]: moderate assist (50% patient effort), verbal cues required Assistive Device: none Bathing Assess/Train, Position: supported sitting Bathing Assess/Train, Impairments: pain, strength decreased (Cognitive deficits) Groomed sitting up in chair, LLE propped on pillows. Requires redirection throughout. Hus band assisted in applying toothpaste on toothbrush. Grooming, Level of [place]: minimal assist (75% patient effort), verbal cues [...] STG Status new at 07/11/2016 1504 STG [place] Level minimum assist (75% patient effort) at 07/11/2016 1504 STG Adaptive Equipment none at 07/11/2016 1504 Toilet Transfer Goal Most Recent Value STG Status new at 07/11/2016 1504 STG [place] Level contact guard assist at 07/11/2016 1504 STG Assistive Device 2 wheeled walker (FWW) at 07/11/2016 1504 Tub/Shower Transfer Goal Most Recent Value Tub/Shower Type walk in shower stall at 07/11/2016 1504 STG Status new at 07/11/2016 1504 STG [place] Level contact guard assist at 07/11/2016 1504 STG Assistive Device 2 wheeled walker (FWW), shower chair at 07/11/2016 1504 Electronically signed by: Helena Motta OT, 07/11/2016 15:11 nesthesia Pain Man sohail Ring, Vernon Syed II, MD - 07/11/2016 11:46 AM [facility]io[facility]-Up Pain level: 2 The [...] is able to move all four extremities. Jiménez: out. Status post spinal morphine PF The patient is doing well. Continue pain medications per surgeon/primary team. There is no apparent anesthetic complication noted at this time. Pain was under good control for duration of SAB narcotics. lan of Care - Homero, Sujey Jadon, PT - 07/11/2016 9:10 AM PDTFormatting of [...] and mgmt of TDWB Bed-Chair, Level of [place]: maximal assist (25% patient effort), 2 person assist requ ired, verbal cues required Chair-Bed, Level of [place]: (NT as pt was left seated in recliner) Jtj-Nccuw-Jld, Assistive Device: 2 wheeled walker (FWW) Sit-Stand, Level of [place]: moderate assist (50% patient effort), 2 person assist req uired, verbal cues required Stand-Sit, Level of [place]: 2 person assist required, minimal assist (75% patient eff ort), verbal cues required Cls-Fqkvl-Ayd, Assistive Device: 2 wheeled walker (FWW) Safety Issues: balance decreased during turns, sequencing ability decreased Impairments: motor control impaired, coordination impaired, impaired balance, strength decr eased, pain Bed Mobility Assist w/ LLE and trunk, cuing for sequencing Assistive Device: bed rails Supine to Sit, Level of [place]: moderate assist (50% patient effort), verbal cues req uired Sit to Supine, Level of [place]: (NT as pt was left seated in [...] STG Review Date 07/16/16 at 07/11/2016 1007 Ctnkex-Pal-Lnerbb Goal Most Recent Value STG Status new at 07/11/2016 1007 STG [place] Level independent at 07/11/2016 1007 STG Assistive Device none at 07/11/2016 1007 Zvx-Sznjk-Kzo Goal Most Recent Value STG Status new at 07/11/2016 1007 STG [place] Level contact guard assist at 07/11/2016 1007 STG Assistive Device 2 wheeled walker (FWW) at 07/11/2016 1007 Ank-Qqyrm-Nbi Goal Most Recent Value STG Status new at 07/11/2016 1007 STG [place] Level contact guard assist at 07/11/2016 1007 STG Assistive Device 2 wheeled walker (FWW) at 07/11/2016 1007 Gait Goal Most Recent Value STG Status new at 07/11/2016 1007 STG [place] Level contact guard assist at 07/11/2016 1007 [...] with good results. lan of Care - V Ramakrishna godinez RN - 07/10/2016 8:18 PM PDTProblem: Patient [...] Soriano MD - 07/10/2016 2:47 PM [facility] Pt. Name/Age/: Alyson Garcia 85 y.o. 1930 Med. Record Number: [id number] Date of admission: 07/10/2016 Date of Operation/Procedure: 07/10/2016 Preoperative Diagnosis: 1. Intertrochanteric fracture left hip Postoperative Diagnosis: 1. Same Surgeon: Ru Soriano MD Memory Care Program Director: Jose MOONEY Anesthesia Provider(s): Anesthesiologist: Vernon Ring [...] PDTPatient brought in by EMS, ground level [facility] l, L hip pain, shortening and [...] | | | | | | [place] [address] | | | | | | [phone] | | | | | | | [...] + | [facility] | [address] | [place] | [phone] | | [facility] | | [address] | | | - LABORATORY | | [...] | | | | g/dL | [facility] | | | | | [...] [address] | [place] | [phone] | | [facility] | | [address] | | | - LABORATORY | | [...] (H) | 7 - 18 mg/dL | [facility] | | | | | | [facility] | | | | | | MEDICAL | | | | | | CENTER - | | | | | | LABORATORY | | + + + + + + | Creatinine | 1.10 | 0.60 - 1.30 | [facility] | | | | | mg/dL | [facility] | | | | | | MEDICAL | | | | | | CENTER - | | | | | | LABORATORY | | + + + + + + | eGFR if not | 47 (L)Comment: | >=60 | [facility] | | | | GLOMERULAR FILTRATION | mL/min/1.73m2 | [facility] | | | [place] | RATE,ESTIMATED | | MEDICAL | | | | mL/min/1.24f4Xama than | | CENTER - | | [...] + | [facility] | [address] | [place] | [phone] | | [facility] | | [address] | | | - LABORATORY | | | | + + + + + POC Glucose (07/12/2016 8:36 PM PDT) + +---------+ + + + | Component | Value | Ref Range | Performed | Pathologist | | | | | At | Signature | + +---------+ + + + | Glucose, | 175 (H) | 70 - 150 mg/dL | [facility] | | | POC | | | [...] + | [facility] | [address] | [place] | [phone] | | [facility] | | [address] | | | - LABORATORY | | [...] [address] | [place] | [phone] | | [facility] | | [address] | | | - LABORATORY | | [...] + | [facility] | [address] | [place] | [phone] | | [facility] | | [address] | | | - LABORATORY | | [...] before | | | | | | -MAR-2015)Anterior | | | | | | infarct [...] | | | | ROSALBA VERDUGO MD ([id number]) | | | | | | on [...] not | 41 (L)Comment: | >=60 | [facility] | | | | GLOMERULAR FILTRATION | mL/min/1.73m2 | [facility] | | | [place] | RATE,ESTIMATED | | MEDICAL | | | | mL/min/1.65m3Pnur than | | CENTER - | | [...] | | | | | mg/dL | [facility] | | | | | | MEDICAL | | | | | | CENTER - | | | | | | LABORATORY | | + + + + + + | Albumin | 2.9 (L) | 3.2 - 5.0 g/dL | [facility] | | | | | | ST. [...] [address] | [place] | [phone] | | [facility] | | [address] | | | - LABORATORY | | [...] | | | Cells | | | [facility] | | | | | | MEDICAL | | | | | | CENTER - | | | | | | LABORATORY | | + + + + + + | Red Blood | 3.50 (L) | 3.70 - 5.20 | [facility] | | | Cells | | M/uL | [facility] | | | | | | MEDICAL [...] + | [facility] | [address] | [place] | [phone] | | [facility] | | [address] | | | - LABORATORY | | [...] [address] | [place] | [phone] | | [facility] | | [address] | | | - LABORATORY | | [...] [address] | [place] | [phone] | | [facility] | | [address] | | | - LABORATORY | | [...] + | [facility] | [address] | [place] | [phone] | | [facility] | | [address] | | | - LABORATORY | | [...] + | [facility] | [address] | [place] | [phone] | | [facility] | | [address] | | | - LABORATORY | | [address] | [place] | [phone] | | [facility] | | [address] | | | - LABORATORY | | [...] + | [facility] | [address] | [place] | [phone] | | [facility] | | [address] | | | - LABORATORY | | [...] not | 37 (L)Comment: | >=60 | YANE | | | | GLOMERULAR FILTRATION | mL/min/1.73m2 | [facility] | | | [place] | RATE,ESTIMATED | | MEDICAL | | | | mL/min/1.62i6Tytm than | | CENTER - | | [...] [address] | [place] | [phone] | | [facility] | | [address] | | | - LABORATORY | | [...] + | [facility] | [address] | [place] | [phone] | | [facility] | | [address] | | | - LABORATORY | | [...] + | [facility] | [address] | [place] | [phone] | | [facility] | | [address] | | | - LABORATORY | | [...] 07/10/2016 6:38 PM | + + [place] C-Arm Stats No Charge (07/10/2016 2:29 PM PDT) [...] - 1.030 | [facility] | | | [place], | | | [facility] | | [...] + | [facility] | [address] | [place] | [phone] | | [facility] | | [address] | | | - LABORATORY | | [...] [place] | | | [facility] | | [address] | | | - BLOOD BANK | [...] [address] | [place] | [phone] | | [facility] | | [address] | | | - LABORATORY | | [...] + | [facility] | [address] | [place] | [phone] | | [facility] | | [address] | | | - LABORATORY | | [...] [address] | [place] | [phone] | | [facility] | | [address] | | | - LABORATORY | | [...] | 1.06 | 0.60 - 1.30 | [facility] | | | | | [...] mL/min/1.73m2 | [facility] | | | [place] | RATE,ESTIMATED | | MEDICAL | | | | mL/min/1.74x6Hxej than | | CENTER - | | [...] + | [facility] | [address] | [place] | [phone] | | [facility] | | [address] | | | - LABORATORY | | [...] ST. | [address] | [place] | [phone] | | [facility] | | [address] | | | - LABORATORY | | [...] | | | | ROSALBA VERDUGO MD ([id number]) | | | | | | on [...]
--- OUTSIDE RECORDS SUMMARY | ~2019-09-12 | XMS | Encounter Summary ---
Demographics + + + | Address | [address] | | | [place] [address] | + + + | Home Phone [...] | Author | [facility] | | | and Clarkeana | + + + | Organization | [facility] | | | [...] | | | | | [place] [address] | | + + + + + | Valentín Saleh | ECON | [id number] | | | | | [place] [address] | | + + + + + | Roberto Carlos Lennon | LEVI | Unknown | | + + + + + Care Team Providers + +------+ + | Care Extraction Machine Operator Name | Role | Phone [...] + + | 03/02/ | Office | [facility] | Stephenie Paul, | CAD (coronary artery | | 2012 | Visit | CARDIOLOGY [address] | [address] [facility] | disease) (Primary | | | | [place], | [place], | Dx); Hypertension; | | | | [place] [address] | [place] [address] | Hyperlipidemia | | | | [phone] | [phone] | | | | | | | [...] History Procedure Date Coronary artery bypass graft 1997 Grafting [...] Other (See Comment) Other family history of [place]'s Disease Other (See Comment) Other No kidney disease in family. Heart disease Sister Kidney disease Neg Hx Family Status Relation Status Age Mother Father Sister Other Brother Other Brother Other History Social History Marital Status: Spouse Name: sigrid Number of Children: 2 Years of Education: N/A Occupational History Social History Main Topics Smoking status: Never Smoker Smokeless tobacco: Never Used Alcohol Use: No Drug Use: No Sexually Active: None Other Topics Concern None Social History Narrative Born in [facility] for 46 years. and Remarried2 sons local. Patient has never smoked. Alcohol Use - noExercise: NoneCaffeine: Decaf onlyLiving Situation: [facility] Current Outpatient Prescriptions Medication Sig Dispense Refill [...] Sulfate Uknown Darvon Nausea Only Estrogens Unknown Review of Systems [...] rhythm, first degree AV block, inferior wall [place] age undetermined. Lab Results Component Value Date [...] Patient is in a class I of [place] [employer] functional class. Physical exam shows [...] made to ensure accuracy; however, inadvertent computerized power tool repairer errors may be pre sent. documented in this encounter Procedure Notes FAUSTINA MORALES - 03/02/2013 12:00 AM PSTAssociated Order(s): ECG - EXTERNAL SCANElectroni mariza signed by Gabriella Barker at 03/05/2013 2:47 PM PSTdocumented in this encounter Plan of [...] | | | | | | [place] [address] | | | | | | [phone] | | | | | | | [...] | ECG - EXTERNAL SCAN | | 03/02/2013 | | | | | | 12:00 AM | | | | | | PST | | | + +--------+ + + + documented in this encounter Visit Diagnoses + + | Diagnosis | + + | CAD (coronary artery disease) - Primary Coronary atherosclerosis of unspecified type | | of vessel, makah or graft | + + | Hypertension Unspecified essential hypertension | + + | Hyperlipidemia Other and unspecified hyperlipidemia | + + documented in this encounter
--- OUTSIDE RECORDS SUMMARY | ~2019-09-12 | XMS | Encounter Summary ---
Demographics + + + | Address | [address] | | | [place] [address] | + + + | Home Phone [...] + | Author | [facility] | | | and Clarkeana | + + + | Organization | [facility] | [...] | | | | | [place] [address] | | + + + + + | Valentín Saleh | ECON | [address] | | | | | [place] [address] | | + + + + + | Roberto Carlos Lennon | LEVI | [place] | | + + + + + Care Team Providers + +------+ + | Care Fbi Profiler Name | Role | Phone | + +------+ + PCP | Unavailable | + +------+ + Encounter Details +--------+ + + + + | Date | Type | Department | Care Team | Description | +--------+ + + + + | 03/25/ | Hospital | [facility] | Mauricio Rider | | | 2009 | Encounter | MED CTR GENERIC IP | MD [address] [facility] | | | | | CONV DEPT [address] | [place], [place] | | | | | [place], | [address] | | | | | [place] [address] | | | | | | [phone] | | | +--------+ + + + [...] | | | | | | [place] [address] | | | | | | [phone] | | | | | | | | +--------+---------+ + + + documented as of this encounter Visit Diagnoses Not on filedocumented in this encounter"
--- OUTSIDE RECORDS SUMMARY | ~2019-09-12 | XMS | Encounter Summary ---
Demographics + + + | Address | [address] | | | [place] [address] | + + + | Home Phone [...] | Author | [facility] | | | and Clarkeana | + + + | Organization | [facility] | [...] | | | | | [place] [address] | | + + + + + | Valentín Saleh | ECON | [address] | | | | | [place] [address] | | + + + + + | Roberto Carlos Lennon | LEVI | [place] | | + + + + + Care Team Providers + +------+ + | Care Die Polisher Name | Role | Phone | + +------+ + PCP | Unavailable | + +------+ + Encounter Details +--------+ + + + + | Date | Type | Department | Care Team | Description | +--------+ + + + + | 11/23/ | Hospital | [facility] | | | | 2002 | Encounter | MED CTR LABORATORY | | | | | | [address] | | | | | | [place] | | | | | | [address] | | | | | | [phone] | | | +--------+ + + + [...] | | | | | | [place] [address] | | | | | | [phone] | | | | | | | | +--------+---------+ + + + documented as of this encounter Visit Diagnoses Not on filedocumented in this encounter"
--- OUTSIDE RECORDS SUMMARY | ~2019-09-12 | XMS | Encounter Summary ---
Demographics + + + | Address | [address] | | | [place] [address] | + + + | Home Phone [...] | Author | [facility] | | | and [place]ana | + + + | Organization | [facility] | [...] | | | | | [place] [address] | | + + + + + | Valentín Saleh | ECON | [phone] | | | | | [place] [address] | | + + + + + | Roberto Carlos Lennon | LEVI | Unknown | | + + + + + Care Team Providers + +------+ + | Care Patient Scheduling Coordinator Name | Role | Phone | [...] + | 04/14/ | Refill | [facility] [place] [facility] | Francois Pascal, | Medication Refill | | 2015 | | MEDICINE [facility] [place] | [address] | | | | | AVE [place], | [address] [place], | | | | | [place] [address] | [place] [address] | | | | | [phone] | [phone] | | | | | | | [...] Telephone Encounter - Mildred Gunn RN - 04/14/2015 3:32 PM PSTFolic Acid 1 mg tablet Last filled: 09/13/14 #90 + 1 RF Last visit: 01/09/15 Next visit: 07/14/15 documented in this enc ounter Plan of [...] | | | | | | [place] [address] | | | | | | [phone] | | | | | | | | +--------+---------+ + + + documented as of this encounter Visit Diagnoses Not on filedocumented in this encounter"
--- OUTSIDE RECORDS SUMMARY | ~2019-09-12 | XMS | Encounter Summary ---
Demographics + + + | Address | [address] | | | [place] [address] | + + + | Home Phone [...] + | Author | [facility] | | | and [place] | + + + | Organization | [facility] | [...] | | | | | [place] [address] | | + + + + + | Valentín Saleh | ECON | [address] | | | | | [place] [address] | | + + + + + | Roberto Carlos Lennon | LEVI | Unknown | | + + + + + Care Team Providers + +------+ + | Care Panelboard Tank Pumper Name | Role | Phone | + [...] | MEDICINE [address] | [address] | | | | | [place], | [address] [place], | | | | | [place] [address] | [place] [address] | | | | | [phone] | [phone] | | | | | | | [...] | | | | | | [place] [address] | | | | | | [phone] | | | | | | | | +--------+---------+ + + + documented as of this encounter Visit Diagnoses Not on filedocumented in this encounter"
--- OUTSIDE RECORDS SUMMARY | ~2019-09-12 | XMS | Encounter Summary ---
Demographics + + + | Address | [address] | | | [place] [address] | + + + | Home Phone [...] | Author | [facility] | | | and [place] | + + + | Organization | [facility] | | [...] | | | | | [place] [address] | | + + + + + | Valentín Saleh | ECON | [address] | | | | | [place] [address] | | + + + + + | Roberto Carlos Lennon | LEVI | Unknown | | + + + + + Care Team Providers + +------+ + | Care Check Writer Name | Role | Phone | + +------+ + | Francois Pascal MD | PCP | | + +------+ + Reason for Visit + +--------+ + | Reason | Onset | Comments | | | Date | | + +--------+ + | Medication Refill | 05/01/ | | | | 2012 | | + +--------+ + Encounter Details +--------+--------+ + + + | Date | Type | Department | Care Team | Description | +--------+--------+ + + + | 05/01/ | Refill | [facility] [place] | Stephenie Paul, | Medication Refill | | 2012 | | [facility] [address] | [address] | | | | | [place], | [place], | | | | | [place] [address] | [place] [address] | | | | | [phone] | [phone] | | | | | | | [...] | | | | | | [place] [address] | | | | | | [phone] | | | | | | | | +--------+---------+ + + + documented as of this encounter Visit Diagnoses Not on filedocumented in this encounter"
--- OUTSIDE RECORDS SUMMARY | ~2019-09-12 | XMS | Encounter Summary ---
Demographics + + + | Address | [address] | | | [place] [address] | + + + | Home Phone [...] | Author | [facility] | | | and [place] | + + + | Organization | [facility] [...] | | | | | [place] [address] | | + + + + + | Valentín Saleh | ECON | [address] | | | | | [place] [address] | | + + + + + | Roberto Carlos Lennon | LEVI | Unknown | | + + + + + Care Team Providers + +------+ + | Care Boiler Repairman Name | Role | Phone | + [...] Refill | | 2012 | | MEDICINE [place] | [address] | | | | | [address] | [address] [place], | | | | | [place] | [place] [address] | | | | | [address] | [phone] | | | | | [phone] | | | +--------+--------+ + + + [...] | | | | | | [place] [address] | | | | | | [phone] | | | | | | | | +--------+---------+ + + + documented as of this encounter Visit Diagnoses Not on filedocumented in this encounter"
--- OUTSIDE RECORDS SUMMARY | ~2019-09-12 | XMS | Encounter Summary ---
Demographics + + + | Address | [address] | | | [place] [address] | + + + | Home Phone [...] + | Author | [facility] | | | and [place] | + + + | Organization | [facility] | [...] | | | | | [place] [address] | | + + + + + | Valentín Saleh | ECON | [address] | | | | | [place] [address] | | + + + + + | Roberto Carlos Lennon | LEVI | [place] | | + + + + + Care Team Providers + +------+ + | Care Hand Tube Bender Name | Role | Phone | + +------+ + PCP | Unavailable | + +------+ + Encounter Details +--------+ + + + + | Date | Type | Department | Care Team | Description | +--------+ + + + + | 02/03/ | Hospital | [facility] | | | | 2006 | Encounter | MED CTR LABORATORY | | | | | | [address] | | | | | | [place] | | | | | | [address] | | | | | | [phone] | | | +--------+ + + + [...] | | | | | | [place] [address] | | | | | | [phone] | | | | | | | | +--------+---------+ + + + documented as of this encounter Visit Diagnoses Not on filedocumented in this encounter"
--- OUTSIDE RECORDS SUMMARY | ~2019-09-12 | XMS | Encounter Summary ---
Demographics + + + | Address | [address] | | | [place] [address] | + + + | Home Phone [...] | Author | [facility] | | | and [place]ana | + + + | Organization | [facility] | [...] [address] | | | | | [place] [address] | | + + + + + | Valentín Saleh | ECON | [address] | | | | | [place] [address] | | + + + + + [...] + + | 02/05/ | Telephone | [facility] [place] | [place], | Blood Pressure Check | | 2013 | | NEPHROLOGY [address] | [address] | (Screening) | | | | [address] | [address] [place] | | | | | [place] | [address] [place] | | | | | [address] | [address] | | | | | [phone] | | | +--------+ + + + [...] | | | | | | [place] [address] | | | | | | [phone] | | | | | | | | +--------+---------+ + + + documented as of this encounter Visit Diagnoses Not on filedocumented in this encounter"
--- OUTSIDE RECORDS SUMMARY | ~2019-09-12 | XMS | Encounter Summary ---
Demographics + + + | Address | [address] | | | [place] [address] | + + + | Home Phone [...] | Author | [facility] | | | and [place]ana | + + + | Organization | [facility] | | | [...] | | | | | [place] [address] | | + + + + + | Valentín Saleh | ECON | [address] | | | | | [place] [address] | | + + + + + | Roberto Carlos Lennon | LEVI | Unknown | | + + + + + Care Team Providers + +------+ + | Care International Accountant Name | Role | Phone | + [...] | instability | [address] | [place] | | | | [address] | [address] | [place], | | | | | (ICD-10-CM) | [facility] | [place] [address] | | | | | - [address] | [place], [place] | Phone: | | | | | (ICD-9-CM) - | [address] | [phone] | | | | | Gait | Phone: | Fax: | | | | | instability | [phone] | [phone] | | | | | Procedures | Fax: | | | | | | pt eval | [phone] | | +--------+ + + + + + Reason for Visit +---------+ + | Reason | Comments | +---------+ + | Results | MRI | +---------+ + Encounter Details +--------+---------+ + + + | Date | Type | Department | Care Team | Description | +--------+---------+ + + + | 12/09/ | Office | [facility] | Francois Pascal, | Type 2 diabetes | | 2015 | Visit | MEDICINE [address] | [address] | mellitus with other | | | | AVE [place], | [address] [place], | diabetic kidney | | | | [place] [address] | [place] [address] | complication (HCC) | | | | [phone] | [phone] | (Primary Dx); Gait | | | [...] except for tylenol. She s ees Chelane Fackenthal today. Cystitis, Bladder wall thickening on recent [...] VSD Father 50 Pneumonia Family Hx of Fisher's chorea Sister and 2 brothers: CAD, Fisher's Disease to [place] - with 2 Healthy Children No kidney disease in family. Social History: Reviewed history from 08/11/2011 and no changes required: Born in [facility] for [facility] years. and Remarried 2 sons [...] Indicated Hemoglobin A1C 2. Gait instability * [facility] Physical Therapy - AMB Referral 3. Bilateral [...] | | | | | | [place] [address] | | | | | | [phone] | | | | | | | [...] - 1.030 | [facility] | | | [place], | | | [facility] | | [...] ST. | [address] | [place], [place] | [phone] | | [facility] | | [address] | | | - [...]
--- OUTSIDE RECORDS SUMMARY | ~2019-09-12 | XMS | Encounter Summary ---
Demographics + + + | Address | [address] | | | [place] [address] | + + + | Home Phone | | + + + | Preferred Language | Unknown | + + + | Marital Status | | + + + | Cheondoism Affiliation | Unknown | + + + | Race | Unknown | + + + | Ethnic Group | Unknown | + + + Author + + + | Author | [facility] | | | and [place]ana | + + + | Organization | [facility] [...] | | | | | [place] [address] | | + + + + + | Valentín Saleh | ECON | [address] | | | | | [place] [address] | | + + + + + | Roberto Carlos Lennon | LEVI | Unknown | | + + + + + Care Team Providers + +------+ + | Care Slasher Hand Name | Role | Phone | + +------+ + | Francois Pascal MD | PCP | | + +------+ + Encounter Details +--------+ + + + + | Date | Type | Department | Care Team | Description | +--------+ + + + + | 10/15/ | Hospital | [facility] | Francois Pascal, | High risk medication | | 2016 | Encounter | MED CTR LABORATORY | [address] | use | | | | [address] [place] | [address] [place], | | | | | [place] | [place] [address] | | | | | [address] | [phone] | | | | | [phone] | | | +--------+ + + + [...] | | | | | | [place] [address] | | | | | | [phone] | | | | | | | [...] + | [facility] | [address] | [place] | [phone] | | [facility] | | [address] | | | - LABORATORY | | [...] | | GLOMERULAR FILTRATION | mL/min/1.73m2 | [facility] | | | [place] | RATE,ESTIMATED | | MEDICAL | | | | mL/min/1.76n5Kgqq than | | CENTER - | | [...] [facility] | | | | | | [facility] | | | | | | [...] [address] | [place] | [phone] | | [facility] | | [address] | | | - LABORATORY | | | | + + + + + documented in this encounter Visit Diagnoses + + | Diagnosis | + + | High risk medication use Encounter for long-term (current) use of other medications | + + documented in this encounter"
--- OUTSIDE RECORDS SUMMARY | ~2019-09-12 | XMS | Encounter Summary ---
Demographics + + + | Address | [address] | | | [place] [address] | + + + | Home Phone [...] | Author | [facility] | | | and [place] | + + + | Organization | [facility] | [...] | | | | | [place] [address] | | + + + + + | Valentín Saleh | ECON | [address] | | | | | [place] [address] | | + + + + + | Roberto Carlos Lennon | LEVI | [place] | | + + + + + Care Team Providers + +------+ + | Care Steam And Gas Turbines Assembler Name | Role | Phone | + +------+ + PCP | Unavailable | + +------+ + Encounter Details +--------+ + + + + | Date | Type | Department | Care Team | Description | +--------+ + + + + | 02/19/ | Hospital | [facility] | Francois Pascal, | | | 2007 | Encounter | MED CTR XRAY [address] | [address] | | | | | [place] | [address] [place], | | | | | [place] [address] | [place] [address] | | | | | [phone] | [phone] | | | | | | | [...] | | | | | | [place] [address] | | | | | | [phone] | | | | | | | | +--------+---------+ + + + documented as of this encounter Visit Diagnoses Not on filedocumented in this encounter"
--- OUTSIDE RECORDS SUMMARY | ~2019-09-12 | XMS | Encounter Summary ---
Demographics + + + | Address | [address] | | | [place] [address] | + + + | Home Phone [...] | Author | [facility] | | | and [place]ana | + + + | Organization | [facility] | [...] | | | | | [place] [address] | | + + + + + | Valentín Saleh | ECON | [address] | | | | | [place] [address] | | + + + + + | Roberto Carlos Lennon | LEVI | Unknown | | + + + + + Care Team Providers + +------+ + | Care Tutor Coordinator Name | Role | Phone | + +------+ + | Francois Pascal MD | PCP | | + +------+ + Encounter Details +--------+---------+ + + + | Date | Type | Department | Care Team | Description | +--------+---------+ + + + | 12/19/ | Office | [facility] | Francois Pascal, | DM (diabetes | | 2014 | Visit | MED CTR DIABETES | [address] | mellitus) ([facility]) | | | | EDUCATION [address] | [address] [place], | (Primary Dx) | | | | [place], | [place] [address] | | | | | [place] [address] | [phone] | | | | | [phone] | | | | | | | [...] begin doing water exerc ise at the [employer]. Teaching again regarding the importance of increasing [...] | 2020 | Visit | | [address] | | | | | | [place], | | | | | | [place] [address] | | | | | | [phone] | | | | | | | [...]
--- OUTSIDE RECORDS SUMMARY | ~2019-09-12 | XMS | Encounter Summary ---
Demographics + + + | Address | [address] | | | [place] [address] | + + + | Home Phone [...] [facility] | | | and Clarkeana | + + + | Organization | [facility] | | [...] | | | | | [place] [address] | | + + + + + | Valentín Saleh | ECON | [address] | | | | | [place] [address] | | + + + + + | Roberto Carlos Lennon | LEVI | Unknown | | + + + + + Care Team Providers + +------+ + | Care Stick Inserter Name | Role | Phone | + [...] Refill | | 2014 | | MEDICINE [place] | [address] | | | | | [address] | [address] [place], | | | | | [place] | [place] [address] | | | | | [address] | [phone] | | | | | [phone] | | | +--------+--------+ + + + [...] | | | | | | [place] [address] | | | | | | [phone] | | | | | | | | +--------+---------+ + + + documented as of this encounter Visit Diagnoses Not on filedocumented in this encounter"
--- OUTSIDE RECORDS SUMMARY | ~2019-09-12 | XMS | Encounter Summary ---
Demographics + + + | Address | [address] | | | [place] [address] | + + + | Home Phone [...] | Author | [facility] | | | and Clarkeana | + + + | Organization | [facility] [...] | | | | | [place] [address] | | + + + + + | Valentín Saleh | ECON | [id number] | | | | | [place] [address] | | + + + + + | Roberto Carlos Lennon | LEVI | Unknown | | + + + + + Care Team Providers + +------+ + | Care Payroll And Benefits Coordinator Name | Role | Phone | [...] 100 | [address] [facility] | (MODERATE) (Primary | | | | [place], [place] | 100 [place], [place] | Dx) | | | | [address] | [address] | | | | | [phone] | | | +--------+ + + + [...] for nephrology appointment on 12/31/13 sent to [facility]. documented in this encounter Plan of [...] | | | | | | [place] [address] | | | | | | [phone] | | | | | | | | +--------+---------+ + + + documented as of this encounter Visit Diagnoses + + | Diagnosis | + + | CHRONIC KIDNEY DISEASE STAGE III (MODERATE) - Primary Chronic kidney disease, Stage | | III (moderate) | + + documented in this encounter"
--- OUTSIDE RECORDS SUMMARY | ~2019-09-12 | XMS | Encounter Summary ---
Demographics + + + | Address | [address] | | | [place] [address] | + + + | Home Phone [...] + | Author | [facility] | | | and Clarkeana | + + + | Organization | [facility] | | [...] | | | | | [place] [address] | | + + + + + | Valentín Saleh | ECON | [address] | | | | | [place] [address] | | + + + + + | Roberto Carlos Lennon | LEVI | Jeyson | | + + + + + Care Team Providers + +------+ + | Care Counter Checker Name | Role | Phone | + +------+ + PCP | Unavailable | + +------+ + Encounter Details +--------+ + + + + | Date | Type | Department | Care Team | Description | +--------+ + + + + | 05/22/ | Hospital | [facility] | | | | 2004 | Encounter | MED CTR LABORATORY | | | | | | [address] | | | | | | [place] | | | | | | [address] | | | | | | [phone] | | | +--------+ + + + [...] | | | | | | [place] [address] | | | | | | [phone] | | | | | | | | +--------+---------+ + + + documented as of this encounter Visit Diagnoses Not on filedocumented in this encounter"
--- OUTSIDE RECORDS SUMMARY | ~2019-09-12 | XMS | Encounter Summary ---
Demographics + + + | Address | [address] | | | [place] [address] | + + + | Home Phone [...] | Author | [facility] | | | and [place] | + + + | Organization | [facility] | [...] | | | | | [place] [address] | | + + + + + | Valentín Saleh | ECON | [phone] | | | | | [place] [address] | | + + + + + | Roberto Carlos Lennon | LEVI | Unknown | | + + + + + Care Team Providers + +------+ + | Care Filenet Developer Name | Role | Phone | + +------+ + | Francois Pascal MD | PCP | | + +------+ + Encounter Details +--------+ + + + + | Date | Type | Department | Care Team | Description | +--------+ + + + + | 09/14/ | Hospital | [facility] | Francois Pascal, | DM (diabetes | | 2014 | Encounter | MED CTR LABORATORY | [address] | mellitus) | | | | [address] [place] | [address] [place], | | | | | [place] | [place] [address] | | | | | [address] | [phone] | | | | | [phone] | | | +--------+ + + + [...] 12:03 PM PDT Quick Note: Ok for jovana [...] | | | | | | [place] [address] | | | | | | [phone] | | | | | | | [...] | | A1c | | | [facility] | | [...] [address] | [place] | [phone] | | [facility] | | [address] | | | - LABORATORY | | | | + + + + + | [facility] [facility] | [address] | [place] | | | [facility] | | [address], [facility] | [...]
--- OUTSIDE RECORDS SUMMARY | ~2019-09-12 | XMS | Encounter Summary ---
Demographics + + + | Address | [address] | | | [place] [address] | + + + | Home Phone [...] Author | [facility] | | | and [place]ana | + + + | Organization | [facility] | [...] | | | | | [place] [address] | | + + + + + | Valentín Saleh | ECON | [id number] | | | | | [place] [address] | | + + + + + | Roberto Carlos Lennon | LEVI | Unknown | | + + + + + Care Team Providers + +------+ + | Care Event Services Manager Name | Role | Phone | + +------+ + | Francois Pascal MD | PCP | | + +------+ + Encounter Details +--------+ + + + + | Date | Type | Department | Care Team | Description | +--------+ + + + + | 12/19/ | Hospital | [facility] | Francois Pascal, | 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 | [address] | [place], [place] | [phone] | | [facility] | | [address] | | | - LABORATORY | | | | + + + + + | [address] [facility] | [address] | [place], [place] | | | [facility] | | [address], [facility] | | | - [...] + | [facility] | [address] | [place], [place] | [phone] | | [facility] | | [address] | | | - LABORATORY | | | | + + + + + | [facility] | [address] | [place] | | | [facility] | | [address] | | [...] + | [facility] | [address] | [place], [place] | [phone] | | [facility] | | [address] | | | - LABORATORY | | | | + + + + + | [facility] [facility] | [address] | [place], [place] | | | [facility] | | [address], [facility] | | | - [...] + | [facility] | [address] | [place], [place] | [phone] | | [facility] | | [address] | | | - LABORATORY | | | | + + + + + | [facility] | [address] | [place], [place] | | | [facility] | | [facility], [facility] | | | - [...] [address] | [place] | [phone] | | [facility] | | [address] | | | - LABORATORY | | | | + + + + + | [facility] [facility] | [address] | [place], [place] | | | [facility] | | [address] | | | - LABORATORY [...]
--- OUTSIDE RECORDS SUMMARY | ~2019-09-12 | XMS | Encounter Summary ---
Demographics + + + | Address | [address] | | | [place] [address] | + + + | Home Phone [...] | Author | [facility] | | | and [place] | + + + | Organization | [facility] [...] | | | | | [place] [address] | | + + + + + | Valentín Saleh | ECON | [phone] | | | | | [place] [address] | | + + + + + | Roberto Carlos Lennon | LEVI | Unknown | | + + + + + Care Team Providers + +------+ + | Care Baggage And Mail Agent Name | Role | Phone | [...] + | 01/17/ | Telephone | [facility] | Francois Pascal, | Medication Prior | | 2013 | | [address] | [address] | Authorization | | | | [address] [place], | [address] [place], | (Methotrexate ) | | | | [place] [address] | [place] [address] | | | | | [phone] | [phone] | | | | | | | [...] | | | | | | [place] [address] | | | | | | [phone] | | | | | | | | +--------+---------+ + + + documented as of this encounter Visit Diagnoses Not on filedocumented in this encounter"
--- OUTSIDE RECORDS SUMMARY | ~2019-09-12 | XMS | Encounter Summary ---
Demographics + + + | Address | [address] | | | [place] [address] | + + + | Home Phone [...] [facility] | | | and [place] | + + + | Organization | [facility] | [...] | | | | | [place] [address] | | + + + + + | Valentín Saleh | ECON | [address] | | | | | [place] [address] | | + + + + + | Roberto Carlos Lennon | LEVI | Unknown | | + + + + + Care Team Providers + +------+ + | Care Chief Mechanical Officer Name | Role | Phone | + +------+ + | Francois Pascal MD | PCP | | + +------+ + Encounter Details +--------+ + + + + | Date | Type | Department | Care Team | Description | +--------+ + + + + | 06/11/ | Hospital | [facility] | F[place], | CHRONIC KIDNEY | | 2016 | Encounter | MED CTR LABORATORY | [address] | DISEASE STAGE III | | | | [address] [place] | [address] [facility] | (MODERATE); Vitamin | | | | [place], [place] | [address] [place], [place] | D deficiency | | | | [address] | [address] | | | | | [phone] | | | +--------+ + + + [...] 2019 | Visit | | [address] [facility] [place] | | | | | | [place], | | | | | | [place] [address] | | | | | | [phone] | | | | | | | [...] | | Urine, | | | [facility] | | | Random | | | [...] + | [facility] [facility] | [address] | [place] | [phone] | | [facility] | | [address] | | | - LABORATORY | | [...]
--- OUTSIDE RECORDS SUMMARY | ~2019-09-12 | XMS | Encounter Summary ---
Demographics + + + | Address | [address] | | | [place] [address] | + + + | Home Phone [...] + | Author | [facility] | | | and [place]ana | + + + | Organization | [facility] | [...] | | | | | [place] [address] | | + + + + + | Valentín Saleh | ECON | [address] | | | | | [place] [address] | | + + + + + | Roberto Carlos Lennon | LEVI | Unknown | | + + + + + Care Team Providers + +------+ + | Care Cycle Analyst Name | Role | Phone | + +------+ + | Francois Pascal MD | PCP | | + +------+ + Encounter Details +--------+ + + + + | Date | Type | Department | Care Team | Description | +--------+ + + + + | 05/23/ | [facility] | [facility] | Francois Pascal, | | | 2011 | Encounter | MED CTR XRAY [address] | [address] | | | | | [place] | [address] [place], | | | | | [place] [address] | [place] [address] | | | | | [phone] | | | | | | | [...] | | | | | | [place] [address] | | | | | | [phone] | | | | | | | [...] | | | Phosphatase | | | [facility] | | | | | | [...] + | [facility] | [address] | [place], [place] | [phone] | | [facility] | | [address] | | | - LABORATORY | | | | + + + + + | [facility] | [address] | [place], [place] | | | [facility] | | [address] | | | - LABORATORY [...] | [facility] | | | | [facility] | | MEDICAL | | | [...] + | [facility] [facility] | [address] | [place], [place] | [phone] | | [facility] | | [address] | | | - LABORATORY | | | | + + + + + | [facility] | [address] | [place], [place] | | | [facility] | | [address] [place] [address] | | | - LABORATORY | | [...] + | [facility] | [address] | [place], [place] | [phone] | | [facility] | | [address] | | | - LABORATORY | | | | + + + + + | [facility] | [address] | [place], [place] | | | [facility] | | [address] | | | - LABORATORY [...] + | [facility] | [address] | [place] | [phone] | | [facility] | | [address] | | | - LABORATORY | | | | + + + + + | [facility] | [address] | [place], [place] | | | [facility] | | [address] | | | - LABORATORY | | | | + + + + + XR Chest PA and Lateral (05/24/2011 3:33 PM PDT) + + | Specimen | + + | | + + + + + | Narrative | Performed At | + + + | [facility] Diagnostic Imaging Department | [facility] | | [address] [facility] | [facility] | | TWO VIEW CHEST 05/24/2011 | [...] Transcribed Date/Time: 05/24/2011 18:13 | | | Recruiting Coordinator: <Electronically Signed by Jose Velázquez, | | | > 05/25/11 1044 | | + + + + + | Procedure Note | + + | Al, Rad Conversion - 04/13/2013 4:57 PM [facility] | | Diagnostic Imaging Department [address] [place] [address] | | TWO VIEW CHEST 05/24/2011 CLINICAL [...] 17:51 | |Transcribed Date/Time: 05/24/2011 18:13 | |Recruiting Coordinator: | |<Electronically Signed by Jose Velázquez MD> 05/25/11 1044 | + + + +---------+ + + | Performing | Address | City/State/Zipcode | Phone Number | | Organization | | | | + +---------+ + + | [place] | | | | | [facility] | | | | + +---------+ + + documented in this encounter Visit Diagnoses Not on filedocumented in this encounter"
--- OUTSIDE RECORDS SUMMARY | ~2019-09-12 | XMS | Encounter Summary ---
Demographics + + + | Address | [address] | | | [place] [address] | + + + | Home Phone [...] Author | [facility] | | | and Clarkeana | + + + | Organization | [facility] [...] | | | | | [place] [address] | | + + + + + | Valentín Saleh | ECON | [address] | | | | | [place] [address] | | + + + + + | Roberto Carlos Lennon | LEVI | Unknown | | + + + + + Care Team Providers + +------+ + | Care Photographic Supervisor Name | Role | Phone | + +------+ + | Francois Pascal MD | PCP | | + +------+ + Encounter Details +--------+ + + + + | Date | Type | Department | Care Team | Description | +--------+ + + + + | 03/02/ | Hospital | [facility] | Francois Pascal, | | | 2011 - | Encounter | MED CTR XRAY [address] | [address] | | | | | [place] | [address], | | | 03/04/ | | [place] [address] | [place] [address] | | | 2011 | | [phone] | [phone] | | | | | | | [...] | | | | | | mellitus) ([facility]) | | | | | | [...] | | | | | | [place] [address] | | | | | | [phone] | | | | | | | [...] Performed At | + + + | [facility] Diagnostic Imaging | [facility] | | [address] | [facility] | | [ rep [address]] [ rep [facility] | | st zip] Signed | - IMAGING | | | | | Patient Name: ALYSON LENNON Physician: | | | SIMONE. : 1930 Age: 81 Sex: F Unit #: [id number] | | | Exam Date: 03/02/12 [facility]: [facility] | | | Report #: [id number] Page: | | | %(RAD)RES..mtdd.print.filter("pg") of %(RAD) | | | RES..mtdd.print.filter("tpg") | | | | | | Accession Number: [id number] | | | BILATERAL SCREENING MAMMOGRAM WITH [...] Transcribed Date/Time: 03/02/2012 11:10 | | | Follow Up Rep: <<Signature on File>> | | | | | | David Keen MD03/03/121926 <Electronically signed by | | | Jaden Keen MD> David Keen MD 03/02/12 1104 | | | Follow Up Rep: Sumoing [id number]/27/12 1110 | | | | | + + + + + + + + | Performing | Address | City/State/Zipcode | Phone Number | | Organization | | | | + + + + + | [facility] [facility] | [address] | [place] | [phone] | | [facility] | | [address] | | | - IMAGING | | | | + + + + + documented in this encounter Visit Diagnoses Not on filedocumented in this encounter
--- OUTSIDE RECORDS SUMMARY | ~2019-09-12 | XMS | Encounter Summary ---
Demographics + + + | Address | [address] | | | [place] [address] | + + + | Home Phone | | + + + | Preferred Language | Unknown | + + + | Marital Status | | + + + | Christian Affiliation | Unknown | + + + | Race | Unknown | + + + | Ethnic Group | Unknown | + + + Author + + + | Author | and [facility] | | | and [place] | + + + | Organization | [facility] | | [...] | | | | | [place] [address] | | + + + + + | Valentín Saleh | ECON | [address] | | | | | [place] [address] | | + + + + + | Roberto Carlos Lennon | LEVI | Unknown | | + + + + + Care Team Providers + +------+ + | Care Delicatessen Slicer Name | Role | Phone | + [...] [place], | | | | | [place] [address] | [place] [address] | | | | | [phone] | [phone] | | | | | | | [...] | | | | | | [place] [address] | | | | | | [phone] | | | | | | | [...]
--- OUTSIDE RECORDS SUMMARY | ~2019-09-12 | XMS | Encounter Summary ---
Demographics + + + | Address | [address] | | | [place] [address] | + + + | Home Phone [...] Author | [facility] | | | and Clarkeana | + + + | Organization | [facility] | | [...] | | | | | [place] [address] | | + + + + + | Valentín Saleh | ECON | [address] | | | | | [place] [address] | | + + + + + | Roberto Carlos Lennon | LEVI | Unknown | | + + + + + Care Team Providers + +------+ + | Care Motion Picture Camera Operator Name | Role | Phone | [...] + + | 03/02/ | Office | [facility] | Stephenie Paul, | CAD (coronary artery | | 2012 | Visit | CARDIOLOGY [address] | [facility] | disease) (Primary | | | | [place], | [place], | Dx); Hypertension; | | | | [place] [address] | [place] [address] | Hyperlipidemia | | | | [phone] | [phone] | | | | | | | [...] Other (See Comment) Other family history of [place]ie[place]'s Disease Other (See Comment) Other No kidney [...] Concern None Social History Narrative Born in [facility] for [facility] years. and Remarried2 sons local. Patient has never smoked. Alcohol Use - noExercise: NoneCaffeine: Decaf onlyLiving Situation: [facility] Current Outpatient Prescriptions Medication Sig [...] rhythm, first degree AV block, inferior wall NE age undetermined. Lab Results Component Value Date [...] Patient is in a class I of [employer] functional class. Physical exam shows [...] made to ensure accuracy; however, inadvertent computerized headwaiter/headwaitress errors may be pre sent. documented in [...] | | | | | | [place] [address] | | | | | | [phone] | | | | | | | [...] of unspecified type | | of vessel, e[place] or graft | + + | Hypertension Unspecified essential hypertension | + + | Hyperlipidemia Other and unspecified hyperlipidemia | + + documented in this encounter
--- OUTSIDE RECORDS SUMMARY | ~2019-09-12 | XMS | Encounter Summary ---
Demographics + + + | Address | [address] | | | [place] [address] | + + + | Home Phone [...] | Author | [facility] | | | and Clarkeana | + + + | Organization | [facility] | | [...] | | | | | [place] [address] | | + + + + + | Valentín Saleh | ECON | [address] | | | | | [place] [address] | | + + + + + | Roberto Carlos Lennon | LEVI | Unknown | | + + + + + Care Team Providers + +------+ + | Care Terrazzo Installer Name | Role | Phone | [...] + + | 02/16/ | [facility] | [facility] | Francois Pascal, | Dyslipidemia | | 2016 | Visit | MEDICINE [address] | [address] | (Primary Dx); | | | | [address] [place], | [address] [place], | Primary | | | | [place] [address] | [place] [address] | osteoarthritis of | | | | [phone] | [phone] | left ankle; Diabetes | | | [...] replacement. She is now seeing Dr Ochoa, [facility] rthopedics. DM2, with neuropathy, There [...] VSD Father 50 Pneumonia Family Hx of Brewster's chorea Sister and 2 brothers: CAD, Brewster's Disease to Sigrid - with 2 Healthy Children No kidney disease in family. Social History: Born in [facility] for [facility] years. and Remarried 2 [...] not heard from Dr Ochoa regarding her [facility] oming ankle replacement. Labs were reviewed with [...] | | | | | | [place] [address] | | | | | | [phone] | | | | | | | [...] ST. | [address] | [place], [place] | [phone] | | [facility] | | [address] | | | - LABORATORY | | | | + + + + + Hemoglobin A1C (05/27/2016 9:00 AM PDT) + +---------+ + + + | Component | Value | Ref Range | Performed | Pathologist | | | | | At | Signature | + +---------+ + + + | Hemoglobin | 9.5 (H) | 4.3 - 6.0 % | [facility] | | | A1c | | | [...] [address] | [place] | [phone] | | [facility] | | [address] | | | - LABORATORY | | [...] + | [facility] | [address] | [place] | [phone] | | [facility] | | [address] | | | [...] | | MEDICAL | | | | mL/min/1.50z7Quvd than | | CENTER - | | [...] [address] | [place] | [phone] | | [facility] | | [address] | | | - [...]
--- OUTSIDE RECORDS SUMMARY | ~2019-09-12 | XMS | Encounter Summary ---
Demographics + + + | Address | [address] | | | [place] [address] | + + + | Home Phone [...] + | Author | [facility] | | | and Clarkeana | + + + | Organization | [facility] | | [...] | | | | | [place] [address] | | + + + + + | Valentín Saleh | ECON | [address] | | | | | [place] [address] | | + + + + + | Roberto Carlos Lennon | LEVI | Unknown | | + + + + + Care Team Providers + +------+ + | Care Quebracho Tanner Name | Role | Phone | + +------+ + | Francois Pascal MD | PCP | | + +------+ + Reason for Visit + + + | Reason | Comments | + + + | Follow-up | test results | + + + Encounter Details +--------+---------+ + + + | Date | Type | Department | Care Team | Description | +--------+---------+ + + + | 11/27/ | Office | [facility] | Francois Pascal, | CHRONIC KIDNEY | | 2012 | Visit | MEDICINE [place] | [address] | DISEASE STAGE III | | | | [address] | [address], | (MODERATE) (Primary | | | | [place], [place] | [place] [address] | Dx); DM (diabetes | | | | [address] | [phone] | mellitus) (HCC); | | | | [phone] | | Hyperlipidemia; | | | | | | HYPERTENSION NEC; | | | | | | OSTEOARTHRITIS, | | | | | | ANKLE, LEFT; Gout, | | | | | | unspecified; Skin | | | | | | lesion | +--------+---------+ + + + Social History [...] + + + | Blood Pressure | 122/70 | 11/27/2012 1:41 PM | | | | | PDT | | + + + + + | Pulse | 68 | 11/27/2012 1:41 PM | | | | | PDT | | + + + + + | Temperature | 36.3 C (97.3 F) | 11/27/2012 1:41 PM | | | | | PDT | | + + + + + | Respiratory Rate | 16 | 11/27/2012 1:41 PM | | | | | PDT | | + + + + + | Oxygen Saturation | 92% | 11/27/2012 1:41 PM | | | | | PDT | | + + + + + | Inhaled Oxygen | - | - | | | Concentration | | | | + + + + + | Weight | 78 kg (172 lb) | 11/27/2012 1:41 PM | | | | | PDT | | + + + + + | Height | - | - | | + + + + + | Body Mass Index | 29.52 | 11/27/2012 10:52 AM | | | | | PDT | | + + + + + documented in this encounter Progress Notes Francois Pascal MD - 11/27/2012 2:11 PM PDTFormatting of this note might be different f rom the original. Subjective: Patient ID: Alyson Lennon is a 81 y.o. female. HPI Recent visit with clara Hansel at the [facility]. Left leg arthritis still some intermittent soreness, [...] saw Kemar Mcclelland in Nephrology earlier today. Gout, takes her allopurinol daily two times daily, She takes colchicine on occasion. She has a bout every once in a while, right knee and left ankle. This is again unchanged from larry revsarbjit. HTN There is no chest pain SOB [...] VSD Father 50 Pneumonia Family Hx of Ramsey's chorea Sister and 2 brothers: CAD, Ramsey's Disease to Counce - with 2 Healthy Children No kidney disease in family. Social History: Reviewed history from 08/11/2011 and no changes required: Born in [facility] for 47 [...] 4. HYPERTENSION NEC 5. OSTEOARTHRITIS, ANKLE, LEFT 6. Gout, unspecified Plan: She looks and feels fine. Otherwise continue current medical regimen. RTC 3 months. Skin biopsy to the right hand, Shave was sent in to path today. documented in this encounter Procedure Notes FAUSTINA MORALES - 11/27/2012 12:00 AM PDTAssociated Order(s): PATHOLOGY - EXTERNAL SCANEle ctronically signed by Gabriella Barker at 12/11/2012 12:39 PM PDTdocumented in this encounter Plan of Treatment +--------+---------+ + + + | Date | Type | Specialty | Care Team | Description | +--------+---------+ + + + | 12/06/ | Office | Cardiology | Stephenie Paul, | | | 2020 | Visit | | [address] | | | | | | [place], | | | | | | [place] [address] | | | | | | [phone] | | | | | | | | +--------+---------+ + + + documented as of this encounter Procedures + +--------+ + + + | Procedure Name | Priori | Date/Time | Associated Diagnosis | Comments | | | ty | | | | + +--------+ + + + | PATHOLOGY - EXTERNAL | | 11/27/2012 | | Results for this | | SCAN | | 12:00 AM | | procedure are in the | | | | PDT | | results section. | + +--------+ + + + documented in this encounter Results PATHOLOGY - EXTERNAL SCAN (11/27/2012 12:00 AM PDT) + + + | Narrative | Performed At | + + + | Ordered by an | | | unspecified provider. | | + + + + + | Transcriptions | + + | Gabriella Barker - 11/27/2012 12:00 AM PDT | + + documented in this encounter [...] ankle and foot | + + | Gout, unspecified | + + | Skin lesion Unspecified disorder of skin and subcutaneous tissue | + + documented in this encounter
--- OUTSIDE RECORDS SUMMARY | ~2019-09-12 | XMS | Encounter Summary ---
Demographics + + + | Address | [address] | | | [place] [address] | + + + | Home Phone [...] | | | | | [place] [address] | | + + + + + | Valentín Saleh | ECON | [phone] | | | | | [place] [address] | | + + + + + | Roberto Carlos Lennon | LEVI | Unknown | | + + + + + Care Team Providers + +------+ + | Care Wood Heel Cementer Name | Role | Phone | [...] + | 10/16/ | Telephone | [facility] | Francois Pascal, | Results | | 2015 | | MEDICINE [address] | [address] | | | | | [address] [place], | [address] [place], | | | | | [place] [address] | [place] [address] | | | | | [phone] | [phone] | | | | | | | [...] from Dr Pascal. Hemoglobin A1C entered in [facility] ed for 3 month follow up [...] | | | | | | [place], | | | | | | [place] [address] | | | | | | [phone] | | | | | | | [...] ST. | [address] | [place] | [phone] | | [facility] | | [address] | | | - LABORATORY | | [...]
--- OUTSIDE RECORDS SUMMARY | ~2019-09-12 | XMS | Encounter Summary ---
Demographics + + + | Address | [address] | | | [place] [address] | + + + | Home Phone [...] | Author | [facility] | | | and [place]ana | + + + | Organization | [facility] | | | [...] | | | | | [place] [address] | | + + + + + | Valentín Saleh | ECON | [address] | | | | | [place] [address] | | + + + + + | Roberto Carlos Lennon | LEVI | Unknown | | + + + + + Care Team Providers + +------+ + | Care Retrofit Installer Name | Role | Phone | + +------+ + | Francois Pascal MD | PCP | | + +------+ + Reason for Visit + +--------+ + | Reason | Onset | Comments | | | Date | | + +--------+ + | Medication | 03/28/ | | | Management | 2017 | | + +--------+ + Encounter Details +--------+ + + + + | Date | Type | Department | Care Team | Description | +--------+ + + + + | 03/28/ | Telephone | [facility] | Francois Pascal, | Medication | | 2017 | | MEDICINE [address] [place] [address] | [address] | Management | | | | [address] [place], | [address] [place], | | | | | [place] [address] | [place] [address] | | | | | [phone] | [phone] | | | | | | | [...] this encounter Miscellaneous Notes Telephone Encounter - Storm Ni RN - 03/28/2017 4:08 PM PSTPer rivaroxaban in creased from 10 mg - 15 mg with evening meal. Changed in Medication Hx.Electronically anastasia d by Storm Ni RN at 03/28/2017 4:09 PM PSTdocumented in this encounter Plan of [...] | | | | | | [place] [address] | | | | | | [phone] | | | | | | | | +--------+---------+ + + + documented as of this encounter Visit Diagnoses Not on filedocumented in this encounter"
--- OUTSIDE RECORDS SUMMARY | ~2019-09-12 | XMS | Encounter Summary ---
Demographics + + + | Address | [address] | | | [place] [address] | + + + | Home Phone [...] | Author | [facility] | | | and [place] | + + + | Organization | [facility] | [...] | | | | | [place] [address] | | + + + + + | Valentín Saleh | ECON | [phone] | | | | | [place] [address] | | + + + + + | Roberto Carlos Lennon | LEVI | Jeyson | | + + + + + Care Team Providers + +------+ + | Care Mechanical Shovel Operator Name | Role | Phone | + +------+ + PCP | Unavailable | + +------+ + Encounter Details +--------+ + + + + | Date | Type | Department | Care Team | Description | +--------+ + + + + | 10/30/ | Hospital | [facility] | | | | 1999 | Encounter | MED CTR EMERGENCY | | | | | | CENTER [address] | | | | | | [place] | | | | | | [address] | | | | | | [phone] | | | +--------+ + + + [...] | | | | | | [place] [address] | | | | | | [phone] | | | | | | | | +--------+---------+ + + + documented as of this encounter Visit Diagnoses Not on filedocumented in this encounter"
--- OUTSIDE RECORDS SUMMARY | ~2019-09-12 | XMS | Encounter Summary ---
Demographics + + + | Address | [address] | | | [place] [address] | + + + | Home Phone [...] | Author | [facility] | | | and [place] | + + + | Organization | [facility] | | [...] | | | | | [place] [address] | | + + + + + | Valentín Saleh | ECON | [address] | | | | | [place] [address] | | + + + + + | Roberto Carlos Lennon | LEVI | Unknown | | + + + + + Care Team Providers + +------+ + | Care Acetylene Torch Solderer Name | Role | Phone | + [...] + + | 10/30/ | Telephone | [facility] | Francois Pascal, | Diabetes | | 2019 | | MEDICINE [place] | [address] | | | | | [address] | [address] [place], | | | | | [place] | [place] [address] | | | | | [address] | [phone] | | | | | [phone] | | | +--------+ + + + [...] 10/30/2018 10:59 AM PDTReceived phone call from [facility] in [place]. Patient is needing an order for syringes [...] | | | | | | [place] [address] | | | | | | [phone] | | | | | | | [...]
--- OUTSIDE RECORDS SUMMARY | ~2019-09-12 | XMS | Encounter Summary ---
Demographics + + + | Address | [address] | | | [place] [address] | + + + | Home Phone [...] + | Author | [facility] | | | and [place] | + + + | Organization | [facility] [...] | | | | | [place] [address] | | + + + + + | Valentín Saleh | ECON | [address] | | | | | [place] [address] | | + + + + + | Roberto Carlos Lennon | LEVI | Unknown | | + + + + + Care Team Providers + +------+ + | Care Tool Straightener Name | Role | Phone | + +------+ + | No, Physician | PCP | Unavailable | + +------+ + Encounter Details +--------+ + + + + | Date | Type | Department | Care Team | Description | +--------+ + + + + | 07/31/ | Lab | [facility] | Francois Pascal, | Contact with and | | 2018 | Requisition | MED CTR LABORATORY | [address] | (suspected) exposure | | | | [address] | [address] [place], | to potentially | | | | [place] | [place] [address] | hazardous body | | | | [address] | [phone] | fluids; Encounter | | | | [phone] | | for screening for | | [...] | | | | | | [place] [address] | | | | | | [phone] | | | | | | | [...]
--- OUTSIDE RECORDS SUMMARY | ~2019-09-12 | XMS | Encounter Summary ---
Demographics + + + | Address | [address] | | | [place] [address] | + + + | Home Phone [...] Author | [facility] | | | and [place] | + + + | Organization | [facility] | | [...] | | | | | [place] [address] | | + + + + + | Valentín Saleh | ECON | [address] | | | | | [place] [address] | | + + + + + | Roberto Carlos Lennon | LEVI | Unknown | | + + + + + Care Team Providers + +------+ + | Care Professional Nursing Tutor Name | Role | Phone | [...] Refill | | 2014 | | MEDICINE [facility] [address] | [address] | | | | | AVE [place], | [place] | | | | | [place] [address] | [address] | | | | | [phone] | | | +--------+--------+ + + + [...] | | | | | | [place] [address] | | | | | | [phone] | | | | | | | [...]
--- OUTSIDE RECORDS SUMMARY | ~2019-09-12 | XMS | Encounter Summary ---
Demographics + + + | Address | [address] | | | [place] [address] | + + + | Home Phone [...] | [facility] | | | and [place]ana | + + + | Organization | [facility] [...] | | | | | [place] [address] | | + + + + + | Valentín Saleh | ECON | [address] | | | | | [place] [address] | | + + + + + | Roberto Carlos Lennon | LEVI | Unknown | | + + + + + Care Team Providers + +------+ + | Care Agronomy Internship Name | Role | Phone | [...] + + | 09/10/ | Office | [facility] | Francois Pascal, | Essential | | 2015 | Visit | MEDICINE [address] | [address] | hypertension | | | | [address]VE [place], | [address] [place], | (Primary Dx); DM | | | | [place] [address] | [place] [address] | (diabetes mellitus); | | | | [phone] | [phone] | CHRONIC KIDNEY | | | | [...] VSD Father 50 Pneumonia Family Hx of Harper's chorea Sister and 2 brothers: CAD, Harper's Disease to Switchback - with 2 Healthy Children No kidney disease in family. Social History: Reviewed history from 08/11/2011 and no changes required: Born in [facility] for 46 years. and Remarried 2 sons [...] | | | | | | [place] [address] | | | | | | [phone] | | | | | | | [...] [address] | [place] | [phone] | | [facility] | | [address] | | | - LABORATORY | | [...] not | 37 (L)Comment: | >=60 | [facility] | | | | GLOMERULAR FILTRATION | mL/min/1.73m2 | [facility] | | | [facility] | RATE,ESTIMATED | | MEDICAL | | | | mL/min/1.27r4Kqrz than | | CENTER - | | [...] [address] | [place] | [phone] | | [facility] | | [address] | | | - LABORATORY | | [...] | | | Cells | | | [facility] | | | | | | MEDICAL | | | | | | CENTER - | | | | | | LABORATORY | | + + + + + + | Red Blood | 3.95 | 3.70 - 5.20 | [facility] | | | Cells | | M/uL | [facility] | | | | | | [...] [address] | [place] | [phone] | | [facility] | | [address] | | | - LABORATORY | | [...]
--- OUTSIDE RECORDS SUMMARY | ~2019-09-12 | XMS | Encounter Summary ---
Demographics + + + | Address | [address] | | | [place] [address] | + + + | Home Phone [...] | Author | [facility] | | | and [place] | + + + | Organization | [facility] | [...] | | | | | [place] [address] | | + + + + + | Valentín Saleh | ECON | [address] | | | | | [place] [address] | | + + + + + | Roberto Carlos Lennon | LEVI | Unknown | | + + + + + Care Team Providers + +------+ + | Care Lip Reading Teacher Name | Role | Phone | [...] [address] | [address] [facility] | (MODERATE) (Primary | | | | [place], [place] | [address] [place], [place] | Dx) | | | | [address] | [address] | | | | | [phone] | | | +--------+ + + + [...] | | | | | | [place] [address] | | | | | | [phone] | | | | | | | | +--------+---------+ + + + documented as of this encounter Visit Diagnoses + + | Diagnosis | + + | CHRONIC KIDNEY DISEASE STAGE III (MODERATE) - Primary Chronic kidney disease, Stage | | III (moderate) | + + documented in this encounter"
--- OUTSIDE RECORDS SUMMARY | ~2019-09-12 | XMS | Encounter Summary ---
Demographics + + + | Address | [address] | | | [place] [address] | + + + | Home Phone [...] Author | [facility] | | | and [place]ana | + + + | Organization | [facility] | [...] | | | | | [place] [address] | | + + + + + | Valentín Saleh | ECON | [address] | | | | | [place] [address] | | + + + + + | Roberto Carlos Lennon | LEVI | Unknown | | + + + + + Care Team Providers + +------+ + | Care Broke Beater Machine Operator Name | Role | Phone [...] [address] | [address] [facility] | (MODERATE) (Primary | | | | [place], [place] | [address] [place], [place] | Dx) | | | | [address] | [address] | | | | | [phone] | | | +--------+ + + + [...] | | | | | | [place] [address] | | | | | | [phone] | | | | | | | [...] [address] | [place] | [phone] | | [facility] | | [address] | | | - LABORATORY | | [...] mL/min/1.73m2 | [facility] | | | [place] | RATE,ESTIMATED | | MEDICAL | | | | mL/min/1.47l0Zuts than | | CENTER - | | [...] [address] | [place] | [phone] | | [facility] | | [address] | | | - LABORATORY | | | | + + + + + documented in this encounter Visit Diagnoses + + | Diagnosis | + + | CHRONIC KIDNEY DISEASE STAGE III (MODERATE) - Primary Chronic kidney disease, Stage | | III (moderate) | + + documented in this encounter"
--- OUTSIDE RECORDS SUMMARY | ~2019-09-12 | XMS | Encounter Summary ---
Demographics + + + | Address | [address] | | | [place] [address] | + + + | Home Phone [...] | [facility] | | | and Clarkeana | + + + | Organization | [facility] [...] | | | | | [place] [address] | | + + + + + | Valentín Saleh | ECON | [address] | | | | | [place] [address] | | + + + + + | Roberto Carlos Lennon | LEVI | Unknown | | + + + + + Care Team Providers + +------+ + | Care Picture Framer Name | Role | Phone | + [...] + | 02/07/ | Telephone | [facility] | Francois Pascal, | Other | | 2017 | | MEDICINE [place] | [address] | | | | | [address] | [address] [place], | | | | | [place] | [place] [address] | | | | | [address] | [phone] | | | | | [phone] | | | +--------+ + + + [...] Fritz - 02/08/2018 2:52 PM PSTFaxed to [facility].Electronical ly signed by Sherlyn Fritz at 02/08/2018 2:52 PM PSTTelephone Encounter - Rosibel Jiang 12:02 PM Gera from [facility] called needing the chart notes from today's (02-07-2018) visit to be faxed to [phone]. documented in this encoun ter Plan of [...] | | | | | | [place] [address] | | | | | | [phone] | | | | | | | | +--------+---------+ + + + documented as of this encounter Visit Diagnoses Not on filedocumented in this encounter"
--- OUTSIDE RECORDS SUMMARY | ~2019-09-12 | XMS | Encounter Summary ---
Demographics + + + | Address | [address] | | | [place] [address] | + + + | Home Phone | | + + + | Preferred Language | Unknown | + + + | Marital Status | Single | + + + | Quaker Affiliation | UNK | + + + | Race | White | + + + | Ethnic Group | Not or | + + + Author + + + | Author | [facility] | + + + | Organization | [facility] | + + + | Address | Unknown | + + + | Phone | Unavailable | + + + Support + + + + + | Name | Relationship | Address | Phone | + + + + + | Sigrid Lennon | LEVI | [address] | | | | | [place] [address] | | + + + + + | None None | ECON | Unknown | Unavailable | + + + + + Care Team Providers + +------+ + | Care Pinner Printed Circuit Boards Name | Role | Phone | + [...] as of this encounter Progress Notes Interface, Bond Writer In - 01/17/2005 5:01 AM [facility] [id number] RADHA AL[facility] Date: 01/05/2005 Clinic: [...] definitely be done in her hometown in [place]. We will talk to the patient in approximately 3 weeks' time to see how this treatment has benefited her. The patient was seen in clinic with Dr.Peter Blankenship, who also examined the patient and formulated the above plan. Clayton Burton M.D. [place] / [id number] / [id number] / [id number] / [id number] Electronically signed by Fabio Blankenship 01-16-2005 03:26:31 PM documented i n this encounter Plan of Treatment Not on filedocumented as of this encounter Visit Diagnoses Not on filedocumented in this encounter"
--- OUTSIDE RECORDS SUMMARY | ~2019-09-12 | XMS | Encounter Summary ---
Demographics + + + | Address | [address] | | | [place] [address] | + + + | Home Phone [...] + | Author | [facility] | | | and [place] | + + + | Organization | [facility] | [...] | | | | | [place] [address] | | + + + + + | Valentín Saleh | ECON | [address] | | | | | [place] [address] | | + + + + + | Roberto Carlos Lennon | LEVI | Unknown | | + + + + + Care Team Providers + +------+ + | Care Hospitality Internship Name | Role | Phone | + +------+ + | Francois Pascal MD | PCP | | + +------+ + Encounter Details +--------+ + + + + | Date | Type | Department | Care Team | Description | +--------+ + + + + | 05/24/ | Hospital | [facility] | Francois Pascal, | | | 2011 | Encounter | MED CTR LABORATORY | [address] | | | | | [address] | [address] [place], | | | | | [place] | [place] [address] | | | | | [address] | [phone] | | | | | [phone] | | | +--------+ + + + [...] | | | | | | [place] [address] | | | | | | [phone] | | | | | | | [...] + | [address] | [address] | [place], [place] | [phone] | | [facility] | | [address] | | | - LABORATORY | | | | + + + + + | [address] | [address] | [place], [place] | | | [facility] | | [address] [place] [address] | | | - LABORATORY | | [...] - 1.030 | [facility] | | | [place], | | | [facility] | | [...] + | [facility] | [address] | [place], [place] | [phone] | | [facility] | | [address] | | | - LABORATORY | | | | + + + + + | [facility] [address] | [address] | [place], [place] | | | [facility] | | [address] | | | - LABORATORY | | | | + + + + + documented in this encounter Visit Diagnoses Not on filedocumented in this encounter"
--- OUTSIDE RECORDS SUMMARY | ~2019-09-12 | XMS | Encounter Summary ---
Demographics + + + | Address | [address] | | | [place] [address] | + + + | Home Phone [...] | Author | [facility] | | | and [place] | + + + | Organization | [facility] [...] | | | | | [place] [address] | | + + + + + | Valentín Saleh | ECON | [address] | | | | | [place] [address] | | + + + + + | Roberto Carlos Lennon | LEVI | Unknown | | + + + + + Care Team Providers + +------+ + | Care Volcanology Teacher Name | Role | Phone | + +------+ + | Francois Pascal MD | PCP | | + +------+ + Encounter Details +--------+ + + + + | Date | Type | Department | Care Team | Description | +--------+ + + + + | 12/04/ | Hospital | [facility] | Francois Pascal, | | | 2013 | Encounter | MED CTR LABORATORY | [address] | | | | | [address] | [address] [place], | | | | | [place] | [place] [address] | | | | | [address] | [phone] | | | | | [phone] | | | +--------+ + + + [...] | | | | | | [place] [address] | | | | | | [phone] | | | | | | | | +--------+---------+ + + + documented as of this encounter Visit Diagnoses Not on filedocumented in this encounter"
--- OUTSIDE RECORDS SUMMARY | ~2019-09-12 | XMS | Encounter Summary ---
Demographics + + + | Address | [address] | | | [place] [address] | + + + | Home Phone [...] Author | [facility] | | | and [place]ana | + + + | Organization | [facility] | [...] | | | | | [place] [address] | | + + + + + | Valetnín Saleh | ECON | [phone] | | | | | [place] [address] | | + + + + + | Roberto Carlos Lennon | LEVI | Unknown | | + + + + + Care Team Providers + +------+ + | Care Data Analytics Architect Name | Role | Phone | [...] + + | 03/01/ | Refill | [facility] | Misael Haynes, | Medication Refill | | 2013 | | MEDICINE [place] | [address] | | | | | [address] | [place] | | | | | [place] | [address] | | | | | [address] | | | | | | [phone] | | | +--------+--------+ + + + [...] | | | | | | [place] [address] | | | | | | [phone] | | | | | | | | +--------+---------+ + + + documented as of this encounter Visit Diagnoses Not on filedocumented in this encounter"
--- OUTSIDE RECORDS SUMMARY | ~2019-09-12 | XMS | Encounter Summary ---
Demographics + + + | Address | [address] | | | [place] [address] | + + + | Home Phone [...] | Author | [facility] | | | and [place] | + + + | Organization | [facility] | | [...] | | | | | [place] [address] | | + + + + + | Valentín Saleh | ECON | [address] | | | | | [place] [address] | | + + + + + | Roberto Carlos Lennon | LEVI | Unknown | | + + + + + Care Team Providers + +------+ + | Care Classified Ad Taker Name | Role | Phone | + [...] | instability | [address] | [place] | | | | [address] | [address] | [address] | [place], | | | | | (ICD-10-CM) | [place] | [place] [address] | | | | | - [address] | [place] | Phone: | | | | | (ICD-9-CM) - | [address] | [phone] | | | | | Gait | Phone: | Fax: | | | | | instability | [phone] | [phone] | | | | | Procedures | Fax: | | | | | | pt eval | [phone] | | +--------+ + + + + + Encounter Details +--------+---------+ + + + | Date | Type | Department | Care Team | Description | +--------+---------+ + + + | 01/27/ | Office | [facility] | Francois Pascal, | Posture imbalance | | 2015 | Visit | MED CTR THERAPY PT | MD [address] | (Primary Dx); | | | | OP [address] | [address] [place], | Impaired functional | | | | [place] | [place] [address] | mobility, balance, | | | | [address] | [phone] | gait, and endurance; | | | | [phone] | | Left ankle pain | | | | | Cheyenne Caballero, | | | | | | SNUFF CONTAINER INSPECTOR [address] | | | | | | [place] | | | | | | [address] | | | | | | | [...] of this encounter Progress Notes Cheyenne Caballero, SNUFF CONTAINER INSPECTOR - 01/27/2015 12:12 PM PSTFormatting of this note might be different f rom the original. [facility] CTR THERAPY PT OP [address] [place] [address] Physical Therapy Daily Treatment Note Date: 01/27/2015 Patient Information Patient Name: Alyson Lennon Date of : 1930 Age: 84 y.o. Encounter Diagnoses Code Name Primary? R29.3 Posture imbalance Yes Z74.09 Impaired functional mobility, balance, gait, and endurance M25.572 Left ankle pain Date of Onset: 10/24/14 Referring Provider: Francois Pascal MD Rehab Precautions Office Visit from 12/24/2014 in [facility] CTR THERAPY PT OP Rehab Precautions [...] | | | | | | [place] [address] | | | | | | [phone] | | | | | | | [...]
--- OUTSIDE RECORDS SUMMARY | ~2019-09-12 | XMS | Clinical Summary ---
Demographics + + + | Address | [address] | | | [place] [address] | + + + | Home Phone [...] + | Author | [facility] | | | and [place]ana | + + + | Organization | [facility] | [...] | | | | | [place] [address] | | + + + + + | Valentín Saleh | ECON | [phone] | | | | | [place] [address] | | + + + + + | Roberto Carlos Lennon | LEVI | [place] | | + + + + + Care Team Providers + +------+ + | Care Extension Worker Name | Role | Phone | [...] | | | | | | | [id number] = 2 | | | | | | | | [id number] = 4 | | | | | [...] + + + | Overview: Problem list coordinator of genetic services utility | + + + + + | Left ankle pain | 07/30/2014 | + + + | 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..] | Other | | family history of Lorado's Disease | + + +------+ + | [...] | | | | | | [place] [address] | | | | | | [phone] | | | | | | | [...] | 03/06/ | 04.038 | | - [id number]: Qty: 1 | c | Hip | SYNTHES - | | 2025 | .295S | | on 07/10/2016 by Chelsey, | | | SYNT | | | / | | Ru Mckee MD at [facility] | | | | | | /[id number] | | [facility] | | | | | | 42 | | CENTER | | | | | | | + +--------+--------+ +--------+--------+--------+ | Nail Fem Tfna St 125d [id number] | Nail | Left: | JJHCS DEPUY | | 06/04/ | 04.037 | | L - [id number]: Qty: | | Hip | SYNTHES - | | 2025 | .215S | | 1 on 07/10/2016 by Chelsey, | | | SYNT | | | / | | Ru Mckee MD at [facility] | | | | | | /[id number] | | [facility] | | | | | | 57 | | CENTER | | | | | | | + +--------+--------+ +--------+--------+--------+ | Screw Im Jenna Slf-Tp F/T | Screw | Left: | JJ[facility]CS DEPUY | | | 04.005 | | 5x32mm - [id number]: | | Hip | SYNTHES - | | | .522 / | | Qty: 1 on 07/10/2016 by | | | SYNT | | | / | | Ru Barbosa MD at | | | | | | | | [facility] | | | | | | | | [facility] | | | | | | | [...] | | 04.005 | | 5x46mm - [id number]: | | Hip | SYNTHES - | | | .536 / | | Qty: 1 on 07/10/2016 at [facility] | | | SYNT | | | / | | [facility] | | | | | | | [...] + + | [facility] [place], [place] | + + + +---------+ + [...] Resulting Agency Comment | + + | [facility] [place] | + + + +---------+ [...] Resulting Agency Comment | + + | [facility] [place] | + + + +---------+ + + [...] Resulting Agency Comment | + + | [facility] [place] | + + + +---------+ + [...] Resulting Agency Comment | + + | [facility] [place] | + + + +---------+ + [...] Resulting Agency Comment | + + | [facility] | + + + [...] [facility]ing [facility] Comment | + + [facility] [place] | + + + +---------+ [...] Resulting Agency Comment | + + | [facility] [place] | + + + +---------+ [...] Resulting Agency Comment | + + | [facility] [place] | + + + +---------+ + [...] + + | [facility] [place] | + + + +---------+ + [...] + + | [facility] [place] | + + + [...] Resulting Agency Comment | + + | [facility] [place] | + + + [...] Resulting Agency Comment | + + | [facility] [place] | + + + +---------+ + [...] Resulting Agency Comment | + + | [facility] [place] | + + + +---------+ [...] Resulting Agency Comment | + + | [facility], [place] | + + + [...] Resulting Agency Comment | + + | [facility] [place] | + + + +---------+ + + [...] + +--------+ | MEDICARE | MEDICA | [id number] | | [phone] | | Medica | | | RE | | 997-Pr | 5 | | re | | | PART A | | esent | | | | | | AND B | | | | | | + +--------+ +--------+ + +--------+ | MODA | MODA | [id number] | 05/06/19 | [phone] | [address] | Indemn | | | HEALTH | | 08-Pre | 9 | [phone] | ity | | | MDCR | | sent | | [place], | | | | [place] | | | | [place] [address] | | + +--------+ +--------+ + +--------+ [...] | 1931 | [phone] | [place] [address] | | | ian | | | 3 (Home) | | + +--------+ +--------+ + + Advance Directives + + + + + | Type | Date Recorded | Patient | Explanation | | | | A P Supervisor | | + + + + + | Power of | | | | | Hospital Secretary | | | | + + + [...]
--- OUTSIDE RECORDS SUMMARY | ~2019-09-12 | XMS | Encounter Summary ---
[...] [facility] | | | and [place]ana | + + + | Organization | [facility] [...] | | | | | [place] [address] | | + + + + + | Valentín Saleh | ECON | [address] | | | | | [place] [address] | | + + + + + | Roberto Carlos Lennon | LEVI | Unknown | | + + + + + Care Team Providers + +------+ + | Care Contract Processor Name | Role | Phone | [...] + | 03/26/ | Telephone | [facility] | Francois Pascal, | Paperwork | | 2019 | | MEDICINE [place] | [address] | | | | | [address] | [address] [place], | | | | | [place] | [place] [address] | | | | | [address] | [phone] | | | | | [phone] | | | +--------+ + + + [...] PM PSTReceived signed order for discharge from intermediate from the commercial front load operator that was signed by Miguelina back in [...] | | | | | | [place] [address] | | | | | | [phone] | | | | | | | | +--------+---------+ + + + documented as of this encounter Visit Diagnoses Not on filedocumented in this encounter"
--- OUTSIDE RECORDS SUMMARY | ~2019-09-12 | XMS | Encounter Summary ---
Demographics + + + | Address | [address] | | | [place] [address] | + + + | Home Phone [...] | Author | [facility] | | | and Clarkeana | + + + | Organization | [facility] [...] | | | | | [place] [address] | | + + + + + | Valentín Saleh | ECON | [address] | | | | | [place] [address] | | + + + + + | Roberto Carlos Lennon | LEVI | [place] | | + + + + + Care Team Providers + +------+ + | Care Production Assembler Name | Role | Phone | + +------+ + PCP | Unavailable | + +------+ + Encounter Details +--------+ + + + + | Date | Type | Department | Care Team | Description | +--------+ + + + + | 02/19/ | Hospital | [facility] | Francois Pascal, | | | 2007 | Encounter | MED CTR XRAY [address] | [address] | | | | | [place] | [address] [place], | | | | | [place] [address] | [place] [address] | | | | | [phone] | [phone] | | | | | | | [...] | | | | | | [place] [address] | | | | | | [phone] | | | | | | | | +--------+---------+ + + + documented as of this encounter Visit Diagnoses Not on filedocumented in this encounter"
--- OUTSIDE RECORDS SUMMARY | ~2019-09-12 | XMS | Encounter Summary ---
Demographics + + + | Address | [address] | | | [place] [address] | + + + | Home Phone [...] | [facility] | | | and Clarkeana | + + + | Organization | [facility] [...] | | | | | [place] [address] | | + + + + + | Valentín Saleh | ECON | [address] | | | | | [place] [address] | | + + + + + | Roberto Carlos Lennon | LEVI | [place] | | + + + + + Care Team Providers + +------+ + | Care Slitting And Shipping Supervisor Name | Role | Phone | + +------+ + PCP | Unavailable | + +------+ + Encounter Details +--------+ + + + + | Date | Type | Department | Care Team | Description | +--------+ + + + + | 06/17/ | Hospital | [facility] | RiderMauricio villarreal | | | 2009 | Encounter | MED CTR XRAY [address] | [place] [facility] | | | | | [place] | [place] | | | | | [place] [address] | [address] | | | | | [phone] | | | +--------+ + + + [...] | | | | | | [place] [address] | | | | | | [phone] | | | | | | | | +--------+---------+ + + + documented as of this encounter Visit Diagnoses Not on filedocumented in this encounter"
--- OUTSIDE RECORDS SUMMARY | ~2019-09-12 | XMS | Encounter Summary ---
Demographics + + + | Address | [address] | | | [place] [address] | + + + | Home Phone [...] | Author | [facility] | | | and [place] | + + + | Organization | [facility] [...] | | | | | [place] [address] | | + + + + + | Valentín Saleh | ECON | [address] | | | | | [place] [address] | | + + + + + | Roberto Carlos Lennon | LEVI | [place] | | + + + + + Care Team Providers + +------+ + | Care Telegraph Repeater Mechanic Name | Role | Phone | + +------+ + PCP | Unavailable | + +------+ + Encounter Details +--------+ + + + + | Date | Type | Department | Care Team | Description | +--------+ + + + + | 09/26/ | Hospital | [facility] | | | | 2006 | Encounter | MED CTR LABORATORY | | | | | | [address] [place] | | | | | | [place] | | | | | | [address] | | | | | | [phone] | | | +--------+ + + + [...] | | | | | | [place] [address] | | | | | | [phone] | | | | | | | | +--------+---------+ + + + documented as of this encounter Visit Diagnoses Not on filedocumented in this encounter"
--- OUTSIDE RECORDS SUMMARY | ~2019-09-12 | XMS | Encounter Summary ---
Demographics + + + | Address | [address] | | | [place] [address] | + + + | Home Phone [...] | [facility] | | | and [place] | + + + | Organization | [facility] [...] | | | | | [place] [address] | | + + + + + | Valentín Saleh | ECON | [address] | | | | | [place] [address] | | + + + + + | Roberto Carlos Lennon | LEVI | Unknown | | + + + + + Care Team Providers + +------+ + | Care Clearance Representative Name | Role | Phone | + +------+ + | Francois Pascal MD | PCP | | + +------+ + Encounter Details +--------+ + + + + | Date | Type | Department | Care Team | Description | +--------+ + + + + | 02/02/ | [facility] | [facility] | Francois Pascal, | | | 2016 | Encounter | MED CTR LABORATORY | [address] | | | | | [address] [place] | [address] [place], | | | | | [place] | [place] [address] | | | | | [address] | [phone] | | | | | [phone] | | | +--------+ + + + [...] | | 0 | | | | Nozqbtd-Ppqkifnnr-Nk | mouth Daily. | | | | [...] | | | | | | [place] [address] | | | | | | [phone] | | | | | | | | +--------+---------+ + + + documented as of this encounter Visit Diagnoses Not on filedocumented in this encounter"
--- OUTSIDE RECORDS SUMMARY | ~2019-09-12 | XMS | Encounter Summary ---
Demographics + + + | Address | [address] | | | [place] [address] | + + + | Home Phone [...] Author | [facility] | | | and Clak[place]ana | + + + | Organization | [facility] | [...] | | | | | [place] [address] | | + + + + + | Valentín Saleh | ECON | [address] | | | | | [place] [address] | | + + + + + | Roberto Carlos Lennon | LEVI | [place] | | + + + + + Care Team Providers + +------+ + | Care Nurse Discharge Name | Role | Phone | + +------+ + PCP | Unavailable | + +------+ + Encounter Details +--------+ + + + + | Date | Type | Department | Care Team | Description | +--------+ + + + + | 01/21/ | Hospital | [facility] | | | | 2002 | Encounter | MED CTR LABORATORY | | | | | | [address] [place] | | | | | | [place] | | | | | | [address] | | | | | | [phone] | | | +--------+ + + + [...] | | | | | | [place] [address] | | | | | | [phone] | | | | | | | | +--------+---------+ + + + documented as of this encounter Visit Diagnoses Not on filedocumented in this encounter"
--- OUTSIDE RECORDS SUMMARY | ~2019-09-12 | XMS | Encounter Summary ---
Demographics + + + | Address | [address] | | | [place] [address] | + + + | Home Phone [...] | [facility] | | | and [place]ana | + + + | Organization | [facility] | | [...] | | | | | [place] [address] | | + + + + + | Valentín Saleh | ECON | [address] | | | | | [place] [address] | | + + + + + | Roberto Carlos Lennon | LEVI | Unknown | | + + + + + Care Team Providers + +------+ + | Care Retail Wireless Sales Consultant Name | Role | Phone [...] Refill | | 2015 | | MEDICINE [facility] | [address] | | | | | [address]VE [place], | [address] [place], | | | | | [place] [address] | [place] [address] | | | | | [phone] | [phone] | | | | | | | [...] | | | | | | [place] [address] | | | | | | [phone] | | | | | | | | +--------+---------+ + + + documented as of this encounter Visit Diagnoses Not on filedocumented in this encounter"
--- OUTSIDE RECORDS SUMMARY | ~2019-09-12 | XMS | Encounter Summary ---
Demographics + + + | Address | [address] | | | [place] [address] | + + + | Home Phone [...] + | Author | [facility] | | | and [place] | + + + | Organization | [facility] [...] | | | | | [place] [address] | | + + + + + | Valentín Saleh | ECON | [address] | | | | | [place] [address] | | + + + + + | Roberto Carlos Lennon | LEVI | Unknown | | + + + + + Care Team Providers + +------+ + | Care Leather Tanner Name | Role | Phone | [...] | | RISK | [address] | [address] [place] [address] | | | | | ASSESSMENT | [place] | [address] | | | | | Procedures | Ave | [place], | | | | | FUP | [place], | [place] [address] | | | | | | [place] | Phone: | | | | | | [address] | [phone] | | | | | | Phone: | Fax: | | | | | | [phone] | [phone] | | | | | | Fax: | | | | | | | [phone] | | +--------+--------+ + + + + Encounter Details +--------+---------+ + + + | Date | Type | Department | Care Team | Description | +--------+---------+ + + + | 01/11/ | Office | [facility] | Jennifer Paul, | Preoperative | | 2016 | Visit | CARDIOLOGY [address] | [address] | clearance (Primary | | | | [place], | [place], | Dx); Coronary artery | | | | [place] [address] | [place] [address] | disease involving | | | | [phone] | [phone] | [place] coronary | | | | | | artery of [place] | | | | | | heart [...] by mouth one [facility]. 4. Blood test: Fasting- 12 hours prior to test, no food, no caffiene, water is ok Date Due: 2 months Where to go for labs: [facility]- [address] [facility]. 5. Follow up appointment: 3-4 months [...] She is now seeing a surgeon in [place] who planned to perform left ankle prosthesis. [...] renal complications Glossitis Coronary artery disease involving [place] coronary artery of [place] heart without angina pectoris Hyperlipidemia AMI - [...] tablet Take 1 by mouth on Sundays Vdzpmby-Kapsaflxn-Iahevlf D (CALCIUM 500 PO) Take by mouth [...] per tablet Take 1 tablet by mo [facility] 2 times daily. No current [...] kg (157 lb 4.8 oz) | B [place] 28.76 kg/m2 Physical Exam Constitutional: She is [...] RESULTS reviewed during visit today primarily from [facility]: LIPID Lab Results Component Value Date [...] hubbard is in a class I of [place] Heart [employer] functional class. Physical exam shows [...] reviewed and edited this note. Judith Interiano [facility] 01/12/16 I, Jennifer Paul MD, personally performed the services described in this documentation, as scribed in my presence and it is both accurate and complete. Judith Marie Jaydon, Spooling Machine Operator 01/12/2016 8:35 Electronically signed by: Jennifer Paul MD [facility] 01/12/2016 Portions of this chart may have been created with [employer] voice recognition software. Occasi onal wrong-word or [...] | Visit | | MD Bob Vasquez [place] | | | | | | [place], | | | | | | [place] [address] | | | | | | [phone] | | | | | | | [...] the | | | | PST | [place] coronary | results section. | | | | | artery of [place] | | | | | | heart [...] MD | | | | | | ([id number]) on 01/12/2016 | | | | | [...] + + | Coronary artery disease involving [place] coronary artery of [place] heart without | | angina pectoris | + + | Essential hypertension with goal blood pressure less than 130/80 | + + | Mixed hyperlipidemia | + + documented in this encounter
--- OUTSIDE RECORDS SUMMARY | ~2019-09-12 | XMS | Encounter Summary ---
Demographics + + + | Address | [address] | | | [place] [address] | + + + | Home Phone [...] | [facility] | | | and Clarkeana | + + + | Organization | [facility] | [...] | | | | | [place] [address] | | + + + + + | Vaelntín Saleh | ECON | [address] | | | | | [place] [address] | | + + + + + | Roberto Carlos Lennon | LEVI | [place] | | + + + + + Care Team Providers + +------+ + | Care Systems Security Consultant Name | Role | Phone | + +------+ + PCP | Unavailable | + +------+ + Encounter Details +--------+ + + + + | Date | Type | Department | Care Team | Description | +--------+ + + + + | 03/24/ | Hospital | [facility] | Francois Pascal, | | | 2009 | Encounter | MED CTR XRAY [address] | [address] | | | | | [place] | [address] [place], | | | | | [place] [address] | [place] [address] | | | | | [phone] | [phone] | | | | | | | [...] | | | | | | [place] [address] | | | | | | [phone] | | | | | | | | +--------+---------+ + + + documented as of this encounter Visit Diagnoses Not on filedocumented in this encounter"
--- OUTSIDE RECORDS SUMMARY | ~2019-09-12 | XMS | Encounter Summary ---
Demographics + + + | Address | [address] | | | [place] [address] | + + + | Home Phone [...] Author | [facility] | | | and Clarkeana | + + + | Organization | [facility] [...] | | | | | [place] [address] | | + + + + + | Valentín Saleh | ECON | [address] | | | | | [place] [address] | | + + + + + | Roberto Carlos Lennon | LEVI | [place] | | + + + + + Care Team Providers + +------+ + | Care Classics Professor Name | Role | Phone | + +------+ + PCP | Unavailable | + +------+ + Encounter Details +--------+ + + + + | Date | Type | Department | Care Team | Description | +--------+ + + + + | 05/10/ | Hospital | [facility] | | | | 2006 | Encounter | MED CTR LABORATORY | | | | | | [address] | | | | | | [place] | | | | | | [address] | | | | | | [phone] | | | +--------+ + + + [...] | | | | | | [place] [address] | | | | | | [phone] | | | | | | | | +--------+---------+ + + + documented as of this encounter Visit Diagnoses Not on filedocumented in this encounter"
--- OUTSIDE RECORDS SUMMARY | ~2019-09-12 | XMS | Encounter Summary ---
Demographics + + + | Address | [address] | | | [place] [address] | + + + | Home Phone [...] | Author | [facility] | | | and Clarkeana | + + + | Organization | [facility] | [...] | | | | | [place] [address] | | + + + + + | Valentín Saleh | ECON | [address] | | | | | [place] [address] | | + + + + + | Roberto Carlos Lennon | LEVI | Unknown | | + + + + + Care Team Providers + +------+ + | Care Health Type Technician Name | Role | Phone | [...] | instability | [address] | [place] | | | | n | [address] | [address] | [place], | | | | | (ICD-10-CM) | [facility] | [place] [address] | | | | | - [address] | [place], [place] | Phone: | | | | | (ICD-9-CM) - | [address] | [phone] | | | | | Gait | Phone: | Fax: | | | | | instability | [phone] | [phone] | | | | | Procedures | Fax: | | | | | | pt eval | [phone] | | +--------+ + + + + + Reason for Visit +---------+ + | Reason | Comments | +---------+ + | Results | MRI | +---------+ + Encounter Details +--------+---------+ + + + | Date | Type | Department | Care Team | Description | +--------+---------+ + + + | 12/09/ | Office | [facility] | Francois Pascal, | Type 2 diabetes | | 2015 | Visit | MEDICINE [address] | [address] | mellitus with other | | | | [address]VE [place], | [address] [place], | diabetic kidney | | | | [place] [address] | [place] [address] | complication (HCC) | | | | [phone] | [phone] | (Primary Dx); Gait | | | [...] VSD Father 50 Pneumonia Family Hx of Redlands's chorea Sister and 2 brothers: CAD, [place]'s Disease to [place] - with 2 Healthy Children No kidney disease in family. Social History: Reviewed history from 08/11/2011 and no changes required: Born in [facility] for 46 years. and Remarried 2 sons [...] Indicated Hemoglobin A1C 2. Gait instability * [facility] Physical Therapy - AMB Referral 3. Bilateral [...] | | | | | | [place] [address] | | | | | | [phone] | | | | | | | [...] - 1.030 | [facility] | | | [place], | | | [facility] | | [...] ST. | [address] | [place], [place] | [phone] | | [facility] | | [address] | | | - LABORATORY | | [...]
--- OUTSIDE RECORDS SUMMARY | ~2019-09-12 | XMS | Encounter Summary ---
Demographics + + + | Address | [address] | | | [place] [address] | + + + | Home Phone [...] + | Author | [facility] | | | and Clarkeana | + + + | Organization | [facility] | [...] | | | | | [place] [address] | | + + + + + | Valentín Saleh | ECON | [address] | | | | | [place] [address] | | + + + + + | Roberto Carlos Lennon | LEVI | Unknown | | + + + + + Care Team Providers + +------+ + | Care Ic Design Manager Name | Role | Phone | [...] [address] | [address] [facility] | (MODERATE) (Primary | | | | [place], [place] | [address] [place], [place] | Dx) | | | | [address] | [address] | | | | | [phone] | | | +--------+ + + + [...] | | | | | | [place] [address] | | | | | | [phone] | | | | | | | [...] [address] | [place] | [phone] | | [facility] | | [address] | | | - LABORATORY | | [...] [address] | [place] | [phone] | | [facility] | | [address] | | | - LABORATORY | | [...] [facility] | | | [place] | | | MEDICAL | | | [...] ine Ratio | | | [facility] | | | | | [...] [address] | [place] | [phone] | | [facility] | | [address] | | | - LABORATORY | | | | + + + + + documented in this encounter Visit Diagnoses + + | Diagnosis | + + | CHRONIC KIDNEY DISEASE STAGE III (MODERATE) - Primary Chronic kidney disease, Stage | | III (moderate) | + + documented in this encounter"
--- OUTSIDE RECORDS SUMMARY | ~2019-09-12 | XMS | Encounter Summary ---
Demographics + + + | Address | [address] | | | [place] [address] | + + + | Home Phone [...] Author | [facility] | | | and [place]ana | + + + | Organization | [facility] [...] | | | | | [place] [address] | | + + + + + | Valentín Saleh | ECON | [address] | | | | | [place] [address] | | + + + + + | Roberto Carlos Lennon | LEVI | [place] | | + + + + + Care Team Providers + +------+ + | Care Shredded Filler Hopper Feeder Name | Role | Phone | + +------+ + PCP | Unavailable | + +------+ + Encounter Details +--------+ + + + + | Date | Type | Department | Care Team | Description | +--------+ + + + + | 08/08/ | Hospital | [facility] | | | | 2007 | Encounter | MED CTR MP INTRA OP | | | | | | [address] | | | | | | [place] | | | | | | [address] | | | | | | [phone] | | | +--------+ + + + [...] | | | | | | [place] [address] | | | | | | [phone] | | | | | | | | +--------+---------+ + + + documented as of this encounter Visit Diagnoses Not on filedocumented in this encounter"
--- OUTSIDE RECORDS SUMMARY | ~2019-09-12 | XMS | Encounter Summary ---
Demographics + + + | Address | [address] | | | [place] [address] | + + + | Home Phone [...] | [facility] | | | and Clarkeana | + + + | Organization | [facility] [...] | | | | | [place] [address] | | + + + + + | Valentín Saleh | ECON | [address] | | | | | [place] [address] | | + + + + + | Roberto Carlos Lennon | LEVI | [place] | | + + + + + Care Team Providers + +------+ + | Care Insole Bottom Filler Name | Role | Phone | + +------+ + PCP | Unavailable | + +------+ + Encounter Details +--------+ + + + + | Date | Type | Department | Care Team | Description | +--------+ + + + + | 02/09/ | Hospital | [facility] | RiderMauricio villarreal | | | 2009 | Encounter | MED CTR XRAY [address] | [place], [address] [facility] | | | | | [place] | [place] | | | | | [place] [address] | [address] | | | | | [phone] | | | +--------+ + + + [...] | | | | | | [place] [address] | | | | | | [phone] | | | | | | | | +--------+---------+ + + + documented as of this encounter Visit Diagnoses Not on filedocumented in this encounter"
--- OUTSIDE RECORDS SUMMARY | ~2019-09-12 | XMS | Encounter Summary ---
Demographics + + + | Address | [address] | | | [place] [address] | + + + | Home Phone [...] | Author | [facility] | | | and Clarkeana | + + + | Organization | [facility] | [...] | | | | | [place] [address] | | + + + + + | Valentín Saleh | ECON | [address] | | | | | [place] [address] | | + + + + + | Roberto Carlos Lennon | LEVI | Unknown | | + + + + + Care Team Providers + +------+ + | Care Equipment Scheduler Name | Role | Phone | [...] | instability | [address] | [place] | | | | n | [address] | [address] | [place], | | | | | (ICD-10-CM) | [place] | [place] [address] | | | | | - [address] | [place] | Phone: | | | | | (ICD-9-CM) - | [address] | [phone] | | | | | Gait | Phone: | Fax: | | | | | instability | [phone] | [phone] | | | | | Procedures | Fax: | | | | | | pt eval | [phone] | | +--------+ + + + + + Encounter Details +--------+---------+ + + + | Date | Type | Department | Care Team | Description | +--------+---------+ + + + | 03/05/ | Office | [facility] | Francois Pascal, | Posture imbalance | | 2015 | Visit | MED CTR THERAPY PT | [address] | (Primary Dx); | | | | OP [address] [place] | [address] [place], | Impaired functional | | | | [place] | [place] [address] | mobility, balance, | | | | [address] | [phone] | gait, and endurance; | | | | [phone] | | Left ankle pain | | | | | Kely Quinn B, PT | | | | | | [address] | | | | | | [place] | | | | | | [address] | | | | | | | [...] encounter Progress Notes Kely Green, PT - 03/05/2015 10:51 AM PSTFormatting of this note might be different from t sridevi original. [facility] CTR THERAPY PT OP [address] [place] [address] Physical Therapy Daily Treatment Note Date: 03/05/2015 Patient Information Patient Name: Alyson Lennon Date of : 1930 Age: 84 y.o. Encounter Diagnoses Code Name Primary? R29.3 Posture imbalance Yes Z74.09 Impaired functional mobility, balance, gait, and endurance M25.572 Left ankle pain Date of Onset: Referring Provider: Francois Pascal MD Rehab Precautions Office Visit from 12/24/2014 in [facility] CTR THERAPY PT OP Rehab Precautions Precautions Comments fall risk Start Time: 1045 Stop time: 1130 Duration: 45 minutes Timed Treatment Codes: 45 minutes # of PT Visits to Date: 13 Subjective: pt reports that her left ankle continues to be painful but overall feels better since starting therapy; does cont. To feel she has decreased balance when walking. Pain Assessment Pain Scale Used: NUMERIC Pain Rating Pre Assessment: 5 Pain Rating Post Assessment: 3 Location: left ankle (1/10 at rest) 5/10 with walking Objective: Manual Therapy: left ankle grade III-IV mobs to increase DF/PF Exercise/Activity 01/08/15 01/13/15 01/23/15 03/03/15 03/05/15 Left ankle DF/PF Left ankle "Alphabet" x DF stretch on incline board 3x30 sec 3x30 sec 3x30 sec (stairs) HEP 3x30 sec 2x20 reps 2x20 reps DF/PF Rocker board 4x20 4x20 4x20 each, light resistance, Static balance light UE support 4x20 each, light resistance, Static balance light UE support 4x20 each, light resistance, Static balance light UE support Balance activites Blue foam: eyes closed, small [place], SLS 1-0 UE support squats 2x20 2x15 (on incline) 2x15 on incline 2x15 on incline Step lunge: left 1x20, OP 1x20, OP Standing LE ex at parallel bar: Hip abd, hip ext 2x10 each Heel raises 2x15 2x20 2x15 2x15 Gait activities 180 feet x3 Resisted gait; focus on heel-toe 400 feet, 4WW Focus on heel-toe 375 feet, SPC Heel-toe Increased gait speed 75 feet x2 SPC Improved heel-toe at end of session 150 feet with SPC Improved gait pattern Left ankle ROM DF/PF: post 20-0-10 deg 15-0-15 deg Pre:5-0-30 Post:20-0-30 20-0-11 deg Assessment: pt demonstrated significantly improve gait pattern after manual therapy; able t o take longer step length/equal and improved heel-toe pattern. Pt does cont. To have slow ga it pattern and is fearful to increase speed. Pt tolerated all activities well without increa se in left ankle pain. Pt would benefit from cont. Therapy to progress left ankle ROM/streng th in order to improve gait and dynamic balance to improve safety at home and [facility]. Plan: Continue with manual therapy, LE strengthening, and gait/balance training. Electronically signed by: Kely Green PT, 03/05/2015 11:31 Patient Name: Alyson Lennon/: 1930/ documented in this encou nter Plan of Treatment +--------+---------+ + + + | Date | Type | Specialty | Care Team | Description | +--------+---------+ + + + | 12/06/ | Office | Cardiology | Makmayelajessie Robertpato, | | | 2019 | Visit | | MD [address] | | | | | | [place], | | | | | | [place] [address] | | | | | | [phone] | | | | | | | [...]
--- OUTSIDE RECORDS SUMMARY | ~2019-09-12 | XMS | Encounter Summary ---
Demographics + + + | Address | [address] | | | [place] [address] | + + + | Home Phone [...] | Author | [facility] | | | and [place]ana | + + + | Organization | [facility] [...] | | | | | [place] [address] | | + + + + + | Valentín Saleh | ECON | [address] | | | | | [place] [address] | | + + + + + | Roberto Carlos Lennon | LEVI | [place] | | + + + + + Care Team Providers + +------+ + | Care Cashier Self Service Gasoline Name | Role | Phone | + +------+ + PCP | Unavailable | + +------+ + Encounter Details +--------+ + + + + | Date | Type | Department | Care Team | Description | +--------+ + + + + | 04/27/ | Hospital | [facility] | | | | 2007 | Encounter | MED CTR LABORATORY | | | | | | [address] | | | | | | [place] | | | | | | [address] | | | | | | [phone] | | | +--------+ + + + [...] | 2019 | Visit | | MD [address] | | | | | | [place], | | | | | | [place] [address] | | | | | | [phone] | | | | | | | | +--------+---------+ + + + documented as of this encounter Visit Diagnoses Not on filedocumented in this encounter"
--- OUTSIDE RECORDS SUMMARY | ~2019-09-12 | XMS | Encounter Summary ---
Demographics + + + | Address | [address] | | | [place] [address] | + + + | Home Phone [...] + | Author | [facility] | | | and Clarkeana | + + + | Organization | [facility] | | [...] | | | | | [place] [address] | | + + + + + | Valentín Saleh | ECON | [address] | | | | | [place] [address] | | + + + + + | Roberto Carlos Lennon | LEVI | Unknown | | + + + + + Care Team Providers + +------+ + | Care Lead Ios Developer Name | Role | Phone | + +------+ + | Francois Pascal MD | PCP | | + +------+ + Reason for Visit + +--------+ + | Reason | Onset | Comments | | | Date | | + +--------+ + | Medication Refill | 08/22/ | | | | 2017 | | + +--------+ + Encounter Details +--------+--------+ + + + | Date | Type | Department | Care Team | Description | +--------+--------+ + + + | 08/22/ | Refill | [facility] | Francois Pascal, | Medication Refill | | 2017 | | MEDICINE [address] | [address] | | | | | [place], | [address] [place], | | | | | [place] [address] | [place] [address] | | | | | [phone] | [phone] | | | | | | | [...] | | | | | | [place] [address] | | | | | | [phone] | | | | | | | | +--------+---------+ + + + documented as of this encounter Visit Diagnoses Not on filedocumented in this encounter"
--- OUTSIDE RECORDS SUMMARY | ~2019-09-12 | XMS | Encounter Summary ---
Demographics + + + | Address | [address] | | | [place] [address] | + + + | Home Phone [...] | Author | [facility] | | | and Clarkeana | + + + | Organization | [facility] | [...] | | | | | [place] [address] | | + + + + + | Valentín Saleh | ECON | [address] | | | | | [place] [address] | | + + + + + | Roberto Carlos Lennon | LEVI | Unknown | | + + + + + Care Team Providers + +------+ + | Care Hand Bookbinder Name | Role | Phone | + [...] + + | 03/21/ | Office | [facility] | Stephenie Paul, | Coronary artery | | 2016 | Visit | CARDIOLOGY [address] | [address] [facility] | disease involving | | | | [place], | [place], | ruby coronary | | | | [place] [address] | [place] [address] | artery of ruby | | | | [phone] | [phone] | heart without angina | | | [...] kg (152 lb 9.6 oz) | B [place] 27.90 kg/m2 Physical Exam Constitutional: She appears [...] Patient is in a class I of [place] Heart Association functional class. Physical exam shows [...] Stephenie Paul MD [facility] 03/21/2015 Portions of this chart may have been created with [place] voice recognition software. Occasi onal wrong-word or [...] | 2019 | Visit | | [address] [facility] | | | | | | [place], | | | | | | [place] [address] | | | | | | [phone] | | | | | | | [...] the | | | | PST | ruby coronary | results section. | | | | | artery of ruby | | | | | | heart [...] MD | | | | | | ([id number]) on 03/21/2015 | | | | | [...] + + | Coronary artery disease involving ruby coronary artery of ruby heart without | | angina pectoris - Primary | + + | Essential hypertension Unspecified essential hypertension | + + documented in this encounter
--- OUTSIDE RECORDS SUMMARY | ~2019-09-12 | XMS | Encounter Summary ---
Demographics + + + | Address | [address] | | | [place] [address] | + + + | Home Phone | | + + + | Preferred Language | Unknown | + + + | Marital Status | | + + + | Cheondoism Affiliation | Unknown | + + + | Race | Unknown | + + + | Ethnic Group | Unknown | + + + Author + + + | Author | [facility] | | | and Clarkeana | + + + | Organization | [facility] | | [...] | | | | | [place] [address] | | + + + + + | Valentín Saleh | ECON | [address] | | | | | [place] [address] | | + + + + + | Roberto Carlos Lennon | LEVI | Unknown | | + + + + + Care Team Providers + +------+ + | Care Physician Gynecologist Name | Role | Phone | + +------+ + | Francois Pascal MD | PCP | | + +------+ + Reason for Visit + +--------+ + | Reason | Onset | Comments | | | Date | | + +--------+ + | Lab Order | 01/31/ | pt due for labs prior to appt. | | | 2017 | | + +--------+ + Encounter Details +--------+ + + + + | Date | Type | Department | Care Team | Description | +--------+ + + + + | 01/31/ | Telephone | [facility] | Stephenie Paul, | Lab Order (pt due | | 2017 | | CARDIOLOGY [address] | [address] | for labs prior to | | | | [place], | [place], | appt.) | | | | [place] [address] | [place] [address] | | | | | [phone] | [phone] | | | | | | | [...] this encounter Miscellaneous Notes Telephone Encounter - Jessica Saucedo RN - 02/01/2018 8:01 AM PSTOrder done ............ ...............................Jessica Saucedo RN on 02/01/18 at 8:01 elephone Encounter - Marisabel Haile, Base Remover - 01/31/2018 4:50 PM PSTPatients voicemail i s non-descriptive so left a voicemail for them to call us back in regards to their appointme nt 02/02/18. Patient is due for fasting labs (Lipid) prior to their appointment. Orders will be in our system but we can forward them to wherever patient would like to have the labs dr padilla. documented in this encounter Plan of Treatment +--------+---------+ + + + | Date | Type | Specialty | Care Team | Description | +--------+---------+ + + + | 12/06/ | Office | Cardiology | Stephenie Paul, | | | 2019 | Visit | | MD [address] | | | | | | [place], | | | | | | [place] [address] | | | | | | [phone] | | | | | | | | +--------+---------+ + + + documented as of this encounter Results Lipid Panel (10/10/2018 3:20 PM PDT) + + + + + + | Component | Value | Ref Range | Performed | Pathologist | | | | | At | Signature | + + + + + + | Triglycerid | 201 (H) | 30 - 150 mg/dL | [facility] | | | es | | | [facility] | | | | | [facility] | | | | | [facility] | | | | | | LABORATORY | | + + + + + + | Cholesterol | 108 (L)Comment: AST, | 150 - 200 mg/dL | [facility] | | | | CHOLESTEROL, AND TOTAL | | [facility] | | | | PROTEIN may be adversely | | MEDICAL | | | | affected by 2+ | | PARK | | | | bilirubin. | | LABORATORY | | + + + + + + | HDL | 34 (L) | 40 - 60 mg/dL | [facility] | | | | | | [facility] | | | | | | [facility] | | | | | | [facility] | | | | | | LABORATORY | | + + + + + + | Chol/HDL | 3.2 | | [facility] | | | Ratio | | | [facility] | | | | | | [facility] | | | | | | [facility] | | | | | | LABORATORY | | + + + + + + | LDL, | 34 | <130 mg/dL | [facility] | | | Calculated | | | [facility] | | | [...] + + | [facility] | [address] [facility] [address] | [place] | [phone] | | [facility] | | [address] | | | [facility] | | | | + + + + + documented in this encounter Visit Diagnoses + + | Diagnosis | + + | Hyperlipidemia, mixed - Primary Mixed hyperlipidemia | + + | Coronary artery disease 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
--- OUTSIDE RECORDS SUMMARY | ~2019-09-12 | XMS | Encounter Summary ---
Demographics + + + | Address | [address] | | | [place] [address] | + + + | Home Phone [...] | Author | [facility] | | | and Clarkeana | + + + | Organization | [facility] | [...] | | | | | [place] [address] | | + + + + + | Valentín Saleh | ECON | [address] | | | | | [place] [address] | | + + + + + | Roberto Carlos Lennon | LEVI | Unknown | | + + + + + Care Team Providers + +------+ + | Care Schedule Supervisor Name | Role | Phone | [...] Refill | | 2014 | | [facility] [place] | [address] | | | | | [address] | [address] [place], | | | | | [place] | [place] [address] | | | | | [address] | [phone] | | | | | [phone] | | | +--------+--------+ + + + [...] | | | | | | [place] [address] | | | | | | [phone] | | | | | | | | +--------+---------+ + + + documented as of this encounter Visit Diagnoses Not on filedocumented in this encounter"
--- OUTSIDE RECORDS SUMMARY | ~2019-09-12 | XMS | Encounter Summary ---
Demographics + + + | Address | [address] | | | [place] [address] | + + + | Home Phone [...] Author | [facility] | | | and Clarkeana | + + + | Organization | [facility] [...] | | | | | [place] [address] | | + + + + + | Valentín Saleh | ECON | [phone] | | | | | [place] [address] | | + + + + + | Roberto Carlos Lennon | LEVI | Unknown | | + + + + + Care Team Providers + +------+ + | Care Asphalt Spreader Name | Role | Phone | + +------+ + | No, Physician | PCP | Unavailable | + +------+ + Encounter Details +--------+ + + + + | Date | Type | Department | Care Team | Description | +--------+ + + + + | 04/06/ | Lab | [facility] | [place], | Chronic kidney | | 2018 | Requisition | [facility] | [address] | disease, stage III | | | | [address] [place] | [address] [place] | (moderate); Other | | | | [place] | [address] | terminologist (current) | | | | [address] | [address] | drug therapy | | | | [phone] | | | +--------+ + + + [...] | | | | | | [place] [address] | | | | | | [phone] | | | | | | | [...] results section. | | | | | terminologist (current) | | | | | | drug therapy | | + +--------+ + + + | RENAL FUNCTION PANEL | Routin | 04/06/2017 | Chronic kidney | Results for this | | | e | 2:30 PM | disease, stage III | procedure are in the | | | | PST | (moderate) Other | results section. | | | | | [facility] (current) | | | | | | [...] mL/min/1.73m2 | [facility] | | | [facility] | | | MEDICAL | | | [...] [facility] [address] | [place] | [phone] | | [facility] | | [address] | | | - LABORATORY | | [...] | | Eosinophils | | K/uL | [facility] | | | | | | MEDICAL | | | | | | CENTER - | | | | | | LABORATORY | | + + + + + + | Absolute | 0.10 | 0.00 - 0.10 | [facility] | | | Basophils | | K/uL | [facility] | | | | [...] [facility] [address] | [address] | [phone] | | [facility] | | [address] | | | - LABORATORY | | | | + + + + + documented in this encounter Visit Diagnoses + + | Diagnosis | + + | Chronic kidney disease, stage III (moderate) (HCC) Chronic kidney disease, Stage III | | (moderate) | + + | Other [facility] (current) drug therapy | + + documented in this encounter"
--- OUTSIDE RECORDS SUMMARY | ~2019-09-12 | XMS | Encounter Summary ---
Demographics + + + | Address | [address] | | | [place] [address] | + + + | Home Phone [...] | Author | [facility] | | | and [place] | + + + | Organization | [facility] [...] | | | | | [place] [address] | | + + + + + | Valentín Saleh | ECON | [phone] | | | | | [place] [address] | | + + + + + | Roberto Carlos Lennon | LEVI | Unknown | | + + + + + Care Team Providers + +------+ + | Care Entry Level Truck Driver Name | Role | Phone | + +------+ + | Francois Pascal MD | PCP | | + +------+ + Reason for Visit + +--------+ + | Reason | Onset | Comments | | | Date | | + +--------+ + | Medication | 10/10/ | | | Management | 2019 | | + +--------+ + Encounter Details +--------+ + + + + | Date | Type | Department | Care Team | Description | +--------+ + + + + | 10/10/ | Telephone | [facility] | Francois Pascal, | Medication | | 2019 | | [facility] [place] | [address] | Management | | | | [address] | [address] [place], | | | | | [place] | [place] [address] | | | | | [address] | [phone] | | | | | [phone] | | | +--------+ + + + [...] Telephone Encounter - Ayanna Mederos RN - 10/11/2018 3:44 PM PDTFormatting of this n ote might be different from the original. Per routing comment from Francois Root MD Jolene L Rodriguez, RN Caller: Unspecified (Yesterday, 16:06) This replaces the old sliding scale. He will also have a new SS where Glucose 150-200 add 1 unit novolog, 201-250 add 2 units novolog 251-300 add 3 units novolog 301-350 add 4 units novolog 351-400 add 5 units novolog <60 or >401 call MD Is she also to use the Novolog 8 units 4 times a day? elephone Encounter - Ayanna Mederos RN - 2018 4:06 PM PDTReceived phone call from [facility] at [facility]. Patient saw Dr Pascal today and per her After Visit Summary, her Humalog dose was changed. Per AVS, she is to use Humalog 8 units four times a day. States that previously she has been on a sliding scale of up to 12 units. Asking if the 8 units four times a day is in addition to the scale or to replace the slidin g scale? FAX [phone] documented in thi s encounter Plan of [...] | | | | | | [place] [address] | | | | | | [phone] | | | | | | | | +--------+---------+ + + + documented as of this encounter Visit Diagnoses Not on filedocumented in this encounter"
--- OUTSIDE RECORDS SUMMARY | ~2019-09-12 | XMS | Encounter Summary ---
Demographics + + + | Address | [address] | | | [place] [address] | + + + | Home Phone [...] Author | [facility] | | | and [place]ana | + + + | Organization | [facility] [...] | | | | | [place] [address] | | + + + + + | Valentín Saleh | ECON | [phone] | | | | | [place] [address] | | + + + + + | Roberto Carlos Lennon | LEVI | [place] | | + + + + + Care Team Providers + +------+ + | Care Lock And Dam Equipment Repairer Name | Role | Phone | + +------+ + PCP | Unavailable | + +------+ + Encounter Details +--------+ + + + + | Date | Type | Department | Care Team | Description | +--------+ + + + + | 06/03/ | Hospital | [facility] | | | | 2005 | Encounter | [facility] LAB[facility] | | | | | | [address] | | | | | | [place] | | | | | | [address] | | | | | | [phone] | | | +--------+ + + + [...] | | | | | | [place] [address] | | | | | | [phone] | | | | | | | | +--------+---------+ + + + documented as of this encounter Visit Diagnoses Not on filedocumented in this encounter"
--- OUTSIDE RECORDS SUMMARY | ~2019-09-12 | XMS | Encounter Summary ---
Demographics + + + | Address | [address] | | | [place] [address] | + + + | Home Phone [...] + | Author | [facility] | | | and [place] | + + + | Organization | [facility] | [...] | | | | | [place] [address] | | + + + + + | Valentín Saleh | ECON | [phone] | | | | | [place] [address] | | + + + + + | Roberto Carlos Lennon | LEVI | [place] | | + + + + + Care Team Providers + +------+ + | Care Case Preparer And Liner Name | Role | Phone | + +------+ + PCP | Unavailable | + +------+ + Encounter Details +--------+ + + + + | Date | Type | Department | Care Team | Description | +--------+ + + + + | 04/29/ | Hospital | [facility] | | | | 1999 | Encounter | MED CTR XRAY [address] | | | | | | [place] [place] | | | | | | [place] [address] | | | | | | [phone] | | | +--------+ + + + [...] | | | | | | [place] [address] | | | | | | [phone] | | | | | | | | +--------+---------+ + + + documented as of this encounter Visit Diagnoses Not on filedocumented in this encounter"
--- OUTSIDE RECORDS SUMMARY | ~2019-09-12 | XMS | Encounter Summary ---
Demographics + + + | Address | [address] | | | [place] [address] | + + + | Home Phone [...] + | Author | [facility] | | | and [place] | + + + | Organization | [facility] | [...] | | | | | [place] [address] | | + + + + + | Valentín Saleh | ECON | [phone] | | | | | [place] [address] | | + + + + + | Roberto Carlos Lennon | LEVI | Unknown | | + + + + + Care Team Providers + +------+ + | Care Teacher Citizenship Name | Role | Phone | + [...] + + | 02/10/ | Telephone | [facility] | Stephenie Paul, | Other | | 2015 | | CARDIOLOGY [address] | MD [address] [place] | | | | | [place], | [place], | | | | | [place] [address] | [place] [address] | | | | | [phone] | [phone] | | | | | | | [...] faxed to Dr. Ochoa at fax number [phone]. Notation on cover-sheet: "Please review #1 on [...] | | | | | | [place] [address] | | | | | | [phone] | | | | | | | | +--------+---------+ + + + documented as of this encounter Visit Diagnoses Not on filedocumented in this encounter
--- OUTSIDE RECORDS SUMMARY | ~2019-09-12 | XMS | Encounter Summary ---
Demographics + + + | Address | [address] | | | [place] [address] | + + + | Home Phone [...] Author | [facility] | | | and [place] | + + + | Organization | [facility] [...] | | | | | [place] [address] | | + + + + + | Valentín Saleh | ECON | [phone] | | | | | [place] [address] | | + + + + + | Roberto Carlos Lennon | LEVI | Unknown | | + + + + + Care Team Providers + +------+ + | Care Hay Stacker Operator Name | Role | Phone | [...] Coordination | | 2019 | | [facility] [place] | Lisa Forbes RN | | | | | [address] [place] [address] | | | | | | [place] | | | | | | [address] | | | | | | [phone] | | | +--------+ + + + [...] discharged. Future Appointments Date Time Provider Department [place] 04/06/2019 4:30 PM Amita Galvez, Speech Pathologist [facility] 04/12/2019 11:15 AM Francois Pascal MD [facility] 05/03/2019 1:30 PM Stephenie Paul MD [facility] documented in this encounter Plan of Treatment +--------+---------+ + + + | Date | Type | Specialty | Care Team | Description | +--------+---------+ + + + | 12/06/ | Office | Cardiology | Stephenie Paul, | | | 2019 | Visit | | MD [address] | | | | | | [place], | | | | | | [place] [address] | | | | | | [phone] | | | | | | | | +--------+---------+ + + + documented as of this encounter Visit Diagnoses Not on filedocumented in this encounter"
--- OUTSIDE RECORDS SUMMARY | ~2019-09-12 | XMS | Encounter Summary ---
Demographics + + + | Address | [address] | | | [place] [address] | + + + | Home Phone [...] | Author | [facility] | | | and [place] | + + + | Organization | [facility] | | [...] | | | | | [place] [address] | | + + + + + | Valentín Saleh | ECON | [phone] | | | | | [place] [address] | | + + + + + | Roberto Carlos Lennon | LEVI | Unknown | | + + + + + Care Team Providers + +------+ + | Care Log Clerk Name | Role | Phone | [...] + | 05/28/ | Telephone | [facility] | Francois Pascal, | Results | | 2016 | | MEDICINE [address] | [address] | | | | | [address] [place], | [address] [place] [address], | | | | | [place] [address] | [place] [address] | | | | | [phone] | [phone] | | | | | | | [...] to discuss wi thin a month. dokrishan ramos in this encounter Plan of Treatment +--------+---------+ + + + | Date | Type | Specialty | Care Team | Description | +--------+---------+ + + + | 12/06/ | Office | Cardiology | Stephenie Paul, | | | 2019 | Visit | | MD [address] | | | | | | [place], | | | | | | [place] [address] | | | | | | [phone] | | | | | | | | +--------+---------+ + + + documented as of this encounter Visit Diagnoses Not on filedocumented in this encounter"
--- OUTSIDE RECORDS SUMMARY | ~2019-09-12 | XMS | Encounter Summary ---
Demographics + + + | Address | [address] | | | [place] [address] | + + + | Home Phone [...] | Author | [facility] | | | and [place] | + + + | Organization | [facility] [...] | | | | | [place] [address] | | + + + + + | Valentín Saleh | ECON | [phone] | | | | | [place] [address] | | + + + + + | Roberto Carlos Lennon | LEVI | Unknown | | + + + + + Care Team Providers + +------+ + | Care Motorcycle Deliverer Name | Role | Phone | + [...] | | NEPHROLOGY [address] | [address] | | | | | [address] [facility] [address] | [address] [facility] | | | | | [place], [place] | [address] [place] | | | | | [address] | [address] | | | | | [phone] | | | +--------+ + + + [...] | | | | | | [place] [address] | | | | | | [phone] | | | | | | | | +--------+---------+ + + + documented as of this encounter Visit Diagnoses Not on filedocumented in this encounter"
--- OUTSIDE RECORDS SUMMARY | ~2019-09-12 | XMS | Encounter Summary ---
Demographics + + + | Address | [address] | | | [place] [address] | + + + | Home Phone [...] + | Author | [facility] | | | and [place] | + + + | Organization | [facility] | [...] | | | | | [place] [address] | | + + + + + | Valentín Saleh | ECON | [phone] | | | | | [place] [address] | | + + + + + | Roberto Carlos Lennon | LEVI | Unknown | | + + + + + Care Team Providers + +------+ + | Care Presetter Operator Name | Role | Phone | + +------+ + | No, Physician | PCP | Unavailable | + +------+ + Encounter Details +--------+ + + + + | Date | Type | Department | Care Team | Description | +--------+ + + + + | 09/03/ | Lab | [facility] | Francois Pascal, | Other care home | | 2017 | Requisition | MED CTR LAB[facility] | [address] | (current) drug | | | | [address] [place] | [address] [place], | therapy | | | | [place], [place] | [place] [address] | | | | | [address] | [phone] | | | | | [phone] | | | +--------+ + + + [...] | | | | | | [place] [address] | | | | | | [phone] | | | | | | | | +--------+---------+ + + + documented as of this encounter Procedures + +--------+ + + + | Procedure Name | Priori | Date/Time | Associated Diagnosis | Comments | | | ty | | | | + +--------+ + + + | COMPREHENSIVE | Routin | 09/03/2016 | Other care home | Results for this | | METABOLIC [...] | | | FILTRATION | mL/min/1.73m2 | [facility] | | | ERITREAN | RATE,ESTIMATED | | MEDICAL | | | | mL/min/1.12t5Jxcs than | | CENTER - | | [...] | 8.8 | 8.3 - 10.5 | [facility] | | | | | mg/dL | [facility] | | | | | | MEDICAL | | | | | | CENTER - | | | | | | LABORATORY | | + + + + + + | Albumin | 3.1 (L) | 3.2 - 5.0 g/dL | [place] | | | | | | [facility] [...] [address] | [place] | [phone] | | [facility] | | [address] | | | - LABORATORY | | | | + + + + + documented in this encounter Visit Diagnoses + + | Diagnosis | + + | 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
--- OUTSIDE RECORDS SUMMARY | ~2019-09-12 | XMS | Encounter Summary ---
Demographics + + + | Address | [address] | | | [place] [address] | + + + | Home Phone [...] | Author | [facility] | | | and [place] | + + + | Organization | [facility] | | [...] | | | | | [place] [address] | | + + + + + | Valentín Saleh | ECON | [address] | | | | | [place] [address] | | + + + + + | Roberto Carlos Garcia | LEVI | Unknown | | + + + + + Care Team Providers + +------+ + | Care Brand Analyst Name | Role | Phone | [...] | | | | | | ([facility]) | | | | | | | [...] + + | 07/10/ | Surgery | [facility] | Ru Soriano | ESTEBAN TITUS | | 2017 | | MED CTR OR INTRA OP | MD [address] | FEMORAL [facility]TERIC | | | | [address] | [facility] | [place] | | | | [place] | [place] [address] | | | | | [address] | [phone] | | | | | [phone] | | | +--------+---------+ + + + [...] Eddy MD - 07/13/2016 12:12 PM PDT [facility] DISCHARGE SUMMARY Pt. Name/Age/: Alyson Garcia [...] 7. 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 Specialty: [facility] Facility Contact information: [address] [place] [address] Soriano for orthopedic follow-up [...] Dr. Ru Soriano and taken to [facility] on 07/10 for ORIF with intramedullary nena [...] stomatitis approx imately 20 years ago at [facility] and was advised they thought this was [...] signed by: Josiah Eddy MD, 07/13/2016 12:13 [facility] Portions of this chart may have been created with [employer] voice recognition software. Occasi onal wrong-word or [...] | | 0 | | | | Dwztmdg-Pjzmfaxrj-Hq | mouth Daily. | | | | [...] Davis MD - 07/12/2016 3:50 PM PDT [facility] HOSPITALIST PROGRESS NOTE Patient: Alyson Garcia : 1930: Age: 85 y.o. MedRec: [id number] PCP: Vernon Yoder MD Admission date: 07/10/2016 [...] New-onset A. Fib: -Rate is controlled, continue hospital monitor -Asymptomatic -Continue Xarelto for anticoagulation *Pending SNF placement DVT Prophylaxis Xarelto Code Status Full Code. Total time of approximately 25 minutes was spent with the patient and/or patient's family, and/or on the patient's floor/unit, of which more than 50% was spent counseling and/or coord ination the patient's care as outlined above. He Davis 07/12/2016 15:51 [facility] Brea Jay RN - 07/12/2016 10:30 [...] Aliza Bateman RN - 07/11/2016 5:44 PM [id number] report from Ramakrishna , assumed care of this pt. Pt sitting up in chair with chair alarm inplace. Electronically signed by: Aliza Sanchez RN 07/11/2016 17:46 Shelia Acevedo MD - 07/11/2016 1:59 PM PDT [facility] HOSPITALIST PROGRESS NOTE Patient: Alyson Garcia : 1930: Age: 85 y.o. MedRec: [id number] PCP: Vernon Yoder MD Admission date: 07/10/2016 [...] as outlined above. He Davis 07/11/2016 13:59 [facility] Ru Royal MD - 07/11/2016 11:29 [...] office: [x] Pharmacy list names: [facility] [x] [facility] [employer] SUPERVISOR (Prescription Monitoring Program) [x] [employer] insurance reported [...] performed and electronically signed by Jose Myers, Cashier Gambling 017 13:09 Reviewed by: Michelle Cabrera PHARMD 07/10/2016 13:45 documented in this encounter H&P Notes He Davis MD - 07/10/2016 10:55 AM PDT [facility] HISTORY AND PHYSICAL [...] type 2 (diabetes mellitus, type 2) ([facility]) 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 NAMIDDE-WBQPGVYFY-IPNNNMH D (CALCIUM 500 PO) Take 1 capsule [...] DVT Prophylaxis heparin Code Status Full Code. [facility] Documentation I expect this patient will be hospitalized for greater than 2-midnights and expect the post -hospital plan to be discharge to a skilled or intermediate care nursing facility. Total of 45 minutes were required to complete the admission process. Electronically signed by: He Davis MD 07/10/2016 10:55 [facility] documented in this enc ounter Consult Notes Ru Soriano MD - 07/10/2016 10:14 AM PDT [address] [address] CONSULTATION RU SORIANO MD Patient: ALYSON GARCIA Admitting: LISANDRA BHATIAWOJCIECH MR #: [id number] LOC: PT TYPE: Adm Date: 07/10/2016 : [...] 07/10/2016 10:14:52 Transcribed on 07/10/2016 10:51:59 by [facility] job# [id number] Confirmation #: [id number] cc: VERNON YODER MD documented in this encounter ED Notes Em Melendez RN - 07/10/2016 1:11 PM PDTDr. Ring took pt to OR. Personal belongi ngs with pt. Vernon Velasco MD - 07/10/2016 8:40 AM PDTFormatting of this note might be different fro m the original. 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 EZGDHJU-ZLTCEVHNT-LKAWZCO D (CALCIUM 500 PO) Take 1 capsule [...] Other (see comment) Other family history of [place]'s Disease Heart disease Sister Kidney disease Neg Hx Social History Social History Marital Status: Spouse Name: Sigrid Number of Children: 2 Years of Education: N/A Occupational History Social History Main Topics Smoking status: Never Smoker Smokeless tobacco: Never Used Alcohol Use: No Drug Use: No Sexual Activity: Not Asked Other Topics Concern None Social History Narrative Born in [facility] for [...] were reviewed along with EMS notes and [facility] record s if applicable. (See chart for [...] of left hip, closed, initial encounter ([facility]) S72.142A 820.21 2. Fall at home, initial [...] Portions of this chart were created with [email or web address] voice recognition software. Inadvertent so und alike [...] Pushed Discharge information to Renee Giang through [employer]. SNF packet complete. ict customer support officer time: 1600. Staff and family notified. Electronically signed by: Carisa Tubbs 07/13/2016 14:15 [facility] Transfer - Jackie Eddy MD - 07/13/2016 12:04 PM PDTFormatting of this note might be different from the marline saldana DETENTION FACILITY TRANSFER ORDERS Patient Name: Alyson Garcia Patient : 1930 Gender: female Date of Admission: 07/10/2016 Date of Discharge: 07/13/2016 Admitting Provider: He Davis MD Discharging Provider: Josiah Eddy MD Consultants: Ru Soriano MD PCP: Vernon Yoder [facility] transferring to: [facility] Provider after transfer: Vernon Yoder MD CODE STATUS: [x] Attempt CPR [] Do not resuscitate If patient is pulseless and not breathing, RN/MANAGER INFUSION may pronounce . Advanced Directives included: [] [...] of left hip, closed, initial encounter ([facility]) Patient Active Problem List Diagnosis CAROTID STENOSIS AMAUROSIS FUGAX DEMYELINATING DISEASE, CENTRAL NERVOUS SYSTEM FRACTURE, ANKLE, LEFT Gout, unspecified OSTEOARTHRITIS, ANKLE, LEFT FATIGUE VIRAL URI HYPERTRIGLYCERIDEMIA VITAMIN D DEFICIENCY Hypertension, renal disease DM type 2, uncontrolled, with renal complications Glossitis Coronary artery disease involving [place] coronary artery of [place] heart without angina pectoris Hyperlipidemia, mixed AMI [...] DOSE (ADULT) 11/18/2005 Diet: [] As tolerated GERIATRIC NURSE may upgrade or downgrade diet as condition [...] [x] OT Evaluation & Management for: [] GERIATRIC NURSE Evaluation &Management for: [] Other: Wound/Skin Care: [...] Josiah MENDOZA MD, certify that post hospital fpc care is medically necessa ry on a continuing basis for any of the conditions for which he/she received care during thi s hospitalization. Check one: [x] Skilled [] Intermediate Additional Orders/Instructions: Physician's signature: 07/13/2016 12:04 [facility] USE ONLY: [] Admitting orders [...] Therapy Discharge Recommendations are: Recommended discharge disposition: fpc facility Post discharge occupational therapy recommendation: ongoing [...] in supported seat EOB. Bathing, Level of [place]: verbal cues required, maximal assist (25% patient effort), supervised, stand by assist Assistive Device: none Bathing Assess/Train, Position: supported sitting Bathing Assess/Train, Impairments: pain, strength decreased (Cognitive deficits) Groomed sitting up in chair, LLE propped on pillows. Requires redirection throughout. Hus band assisted in applying toothpaste on toothbrush. Grooming, Level of [place]: minimal assist (75% patient effort), verbal cues required Bed Mobility Pt w/ increased pain during bed mobility and extreme difficulty mobilizing to EOB. Pt requi red max A x 2 and HOB raised to reach modified seated position EOB. Assistive Device: bed rails Supine to Sit, Level of [place]: 2 person assist required, dependent ( less [...] Status not addressed at 07/13/2016 1150 STG [place] Level minimum assist (75% patient effort) at 07/13/2016 1150 STG Adaptive Equipment none at 07/13/2016 1150 Toilet Transfer Goal Most Recent Value STG Status not addressed at 07/13/2016 1150 STG [place] Level contact guard assist at 07/13/2016 1150 STG Assistive Device 2 wheeled walker (FWW) at 07/13/2016 1150 Tub/Shower Transfer Goal Most Recent Value Tub/Shower Type walk in shower stall at 07/13/2016 1150 STG Status not addressed at 07/13/2016 1150 STG [place] Level contact guard assist at 07/13/2016 1150 [...] y. Left hip pain, pt tolerates 1 [place]. CMS intact. Pt is heavy transfer, requires roberta Jiménez in place. [facility] Pt unsure of last BM, meds [...] movement, oxycodone ma de pt sleepy, use [place] and straight tylenol - pt tolerated well, [...] Therapy Discharge Recommendations are: Recommended discharge disposition: fpc facility Post discharge physical therapy recommendation: will [...] difficulty maintaining wt bearing. Bed-Chair, Level of [place]: moderate assist (50% patient effort), 2 person assist req uired Chair-Bed, Level of [place]: (NT as pt was left seated in recliner) Ewb-Wfimd-Vzr, Assistive Device: 2 wheeled walker (FWW) Sit-Stand, Level of [place]: moderate assist (50% patient effort), 2 person assist req uired, verbal cues required Stand-Sit, Level of [place]: 2 person assist required, minimal assist (75% patient eff ort), verbal cues required Lma-Ggevr-Hgf, Assistive Device: 2 wheeled walker (FWW) Maintain Weight Bearing Status: assist to maintain weight bearing status Safety Issues: balance decreased during turns, sequencing ability decreased Impairments: motor control impaired, coordination impaired, impaired balance, strength decr eased, pain Bed Mobility Pt w/ increased pain and increased difficulty mobilizing in bed Assistive Device: bed rails Supine to Sit, Level of [place]: maximal assist (25% patient effort), 2 person assist required Sit to Supine, Level of [place]: (NT as pt was left seated in [...] STG Review Date 07/16/16 at 07/11/2016 1007 Gpbiua-Ymc-Teuhkh Goal Most Recent Value STG Status continued/progressing at 07/12/2016 1421 STG [place] Level independent at 07/11/2016 1007 STG Assistive Device none at 07/11/2016 1007 Lxl-Hrejo-Ync Goal Most Recent Value STG Status continued/progressing at 07/12/2016 1421 STG [place] Level contact guard assist at 07/11/2016 1007 STG Assistive Device 2 wheeled walker (FWW) at 07/11/2016 1007 Efa-Pgzha-Hud Goal Most Recent Value STG Status continued/progressing at 07/12/2016 1421 STG [place] Level contact guard assist at 07/11/2016 1007 STG Assistive Device 2 wheeled walker (FWW) at 07/11/2016 1007 Gait Goal Most Recent Value STG Status continued/progressing at 07/12/2016 1421 STG [place] Level contact guard assist at 07/11/2016 1007 [...] ng Medicare coverage for the Rehab facility ([facility]) They would like to see Alyson go to [facility]. This CM let them know that she may discharge t omorrow. [facility] has accepted her once she is [...] nies nausea at this time. lan of Aliza Baker RN - 07/11/2016 6:10 PM PDTProblem: [...] PCP is Dr. Yoder and she uses [facility]. She states she will need a SNF rehab stay and she only chooses [facility]. Facility preference form signed and placed in ghost chart. SNF referral sent to Renee Giang via [facility]. to continue to follow. Electronically signed by: Rena Aguilar RN 07/11/2016 12:19 Received call from Zejanice at [facility], she states they can accept Ms. [...] Therapy Discharge Recommendations are: Recommended discharge disposition: fpc facility Post discharge occupational therapy recommendation: family [...] off electrodes on abdomen. Bathing, Level of [place]: moderate assist (50% patient effort), verbal cues required Assistive Device: none Bathing Assess/Train, Position: supported sitting Bathing Assess/Train, Impairments: pain, strength decreased (Cognitive deficits) Groomed sitting up in chair, LLE propped on pillows. Requires redirection throughout. Hus band assisted in applying toothpaste on toothbrush. Grooming, Level of [place]: minimal assist (75% patient effort), verbal cues [...] STG Status new at 07/11/2016 1504 STG [place] Level minimum assist (75% patient effort) at 07/11/2016 1504 STG Adaptive Equipment none at 07/11/2016 1504 Toilet Transfer Goal Most Recent Value STG Status new at 07/11/2016 1504 STG [place] Level contact guard assist at 07/11/2016 1504 STG Assistive Device 2 wheeled walker (FWW) at 07/11/2016 1504 Tub/Shower Transfer Goal Most Recent Value Tub/Shower Type walk in shower stall at 07/11/2016 1504 STG Status new at 07/11/2016 1504 STG [place] Level contact guard assist at 07/11/2016 1504 [...] and mgmt of TDWB Bed-Chair, Level of [place]: maximal assist (25% patient effort), 2 person assist requ ired, verbal cues required Chair-Bed, Level of [place]: (NT as pt was left seated in recliner) Awc-Jllet-Vuv, Assistive Device: 2 wheeled walker (FWW) Sit-Stand, Level of [place]: moderate assist (50% patient effort), 2 person assist req uired, verbal cues required Stand-Sit, Level of [place]: 2 person assist required, minimal assist (75% patient eff ort), verbal cues required Lsm-Rqgog-Wmr, Assistive Device: 2 wheeled walker (FWW) Safety Issues: balance decreased during turns, sequencing ability decreased Impairments: motor control impaired, coordination impaired, impaired balance, strength decr eased, pain Bed Mobility Assist w/ LLE and trunk, cuing for sequencing Assistive Device: bed rails Supine to Sit, Level of [place]: moderate assist (50% patient effort), verbal cues req uired Sit to Supine, Level of [place]: (NT as pt was left seated in [...] STG Review Date 07/16/16 at 07/11/2016 1007 Puruzf-Llx-Nnkmdn Goal Most Recent Value STG Status new at 07/11/2016 1007 STG [place] Level independent at 07/11/2016 1007 STG Assistive Device none at 07/11/2016 1007 Nmz-Crfcr-Ccm Goal Most Recent Value STG Status new at 07/11/2016 1007 STG [place] Level contact guard assist at 07/11/2016 1007 STG Assistive Device 2 wheeled walker (FWW) at 07/11/2016 1007 Nyw-Ugpkl-Ovb Goal Most Recent Value STG Status new at 07/11/2016 1007 STG [place] Level contact guard assist at 07/11/2016 1007 STG Assistive Device 2 wheeled walker (FWW) at 07/11/2016 1007 Gait Goal Most Recent Value STG Status new at 07/11/2016 1007 STG [place] Level contact guard assist at 07/11/2016 1007 [...] Soriano MD - 07/10/2016 2:47 PM [facility] Pt. Name/Age/: Alyson Garcia 85 y.o. 1930 Med. Record Number: [id number] Date of admission: 07/10/2016 Date of Operation/Procedure: 07/10/2016 Preoperative Diagnosis: 1. Intertrochanteric fracture left hip Postoperative Diagnosis: 1. Same Surgeon: Ru Soriano MD Bus System Operator: Jose MOONEY Anesthesia Provider(s): Anesthesiologist: Vernon Ring [...] PDTPatient brought in by EMS, ground level [facility] l, L hip pain, shortening and rotation [...] | | | | | | [place] [address] | | | | | | [phone] | | | | | | | [...] + | [facility] | [address] | [place] | [phone] | | [facility] | | [address] | | | - LABORATORY | | [...] | | | | g/dL | [facility] | | | [...] [address] | [place] | [phone] | | [facility] | | [address] | | | - LABORATORY | | [...] (H) | 7 - 18 mg/dL | [facility] | | | | | | [facility] | | | | | | MEDICAL | | | | | | CENTER - | | | | | | LABORATORY | | + + + + + + | Creatinine | 1.10 | 0.60 - 1.30 | [facility] | | | | | mg/dL | [facility] | | | | | | MEDICAL | | | | | | CENTER - | | | | | | LABORATORY | | + + + + + + | eGFR if not | 47 (L)Comment: | >=60 | [facility] | | | | GLOMERULAR FILTRATION | mL/min/1.73m2 | [facility] | | | PANAMANIAN | RATE,ESTIMATED | | MEDICAL | | | | mL/min/1.64s5Guli than | | CENTER - | | [...] + | [facility] | [address] | [place] | [phone] | | [facility] | | [address] | | | - LABORATORY | | [...] + | [facility] | [address] | [place] | [phone] | | [facility] | | [address] | | | - LABORATORY | | [...] [address] | [place] | [phone] | | [facility] | | [address] | | | - LABORATORY | | [...] + | [facility] | [address] | [place] | [phone] | | [facility] | | [address] | | | - LABORATORY | | [...] | | | | ROSALBA VERDUGO MD ([id number]) | | | | | | on [...] not | 41 (L)Comment: | >=60 | [facility] | | | | GLOMERULAR FILTRATION | mL/min/1.73m2 | [facility] | | | PANAMANIAN | RATE,ESTIMATED | | MEDICAL | | | | mL/min/1.78p3Yvva than | | CENTER - | | [...] | | | | | mg/dL | [facility] | | [...] + | [facility] | [address] | [place] | [phone] | | [facility] | | [address] | | | - LABORATORY | | [...] | | | Cells | | | [facility] | | | | | | MEDICAL | | | | | | CENTER - | | | | | | LABORATORY | | + + + + + + | Red Blood | 3.50 (L) | 3.70 - 5.20 | [facility] | | | Cells | | M/uL | [facility] | | [...] + | [facility] | [address] | [place] | [phone] | | [facility] | | [address] | | | - LABORATORY | | [...] | + + + + + | [facility] | [address] | [place] | [phone] | | [facility] | | [address] | | | - LABORATORY | | [...] + | [facility] | [address] | [place] | [phone] | | [facility] | | [address] | | | - LABORATORY | | [...] + | [facility] | [address] | [place] | [phone] | | [facility] | | [address] | | | - LABORATORY | | [...] + | [facility] | [address] | [place] | [phone] | | [facility] | | [address] | | | - LABORATORY | | [...] [address] | [place] | [phone] | | [facility] | | [address] | | | - LABORATORY | | [...] + | [facility] | [address] | [place] | [phone] | | [facility] | | [address] | | | - LABORATORY | | [...] mL/min/1.73m2 | [facility] | | | PANA[place]IAN | RATE,ESTIMATED | | MEDICAL | | | | mL/min/1.87o7Kysr than | | CENTER - | | [...] [address] | [place] | [phone] | | [facility] | | [address] | | | - LABORATORY | | [...] + | [facility] | [address] | [place] | [phone] | | [facility] | | [address] | | | - LABORATORY | | [...] + | [facility] | [address] | [place] | [phone] | | [facility] | | [address] | | | - LABORATORY | | [...] - 1.030 | [facility] | | | [place], | | | [facility] | | [...] + | [facility] | [address] | [place] | [phone] | | [facility] | | [address] | | | - LABORATORY | | [...] [place] | | | [facility] | | [address] | | | - BLOOD BANK | [...] [address] | [place] | [phone] | | [facility] | | [address] | | | - LABORATORY | | [...] + | [facility] | [address] | [place] | [phone] | | [facility] | | [address] | | | - LABORATORY | | [...] [address] | [place] | [phone] | | [facility] | | [address] | | | - LABORATORY | | [...] | 1.06 | 0.60 - 1.30 | [facility] | | | | | mg/dL | [...] mL/min/1.73m2 | [facility] | | | [place] | RATE,ESTIMATED | | MEDICAL | | | | mL/min/1.97v7Wthr than | | CENTER - | | [...] + | [facility] | [address] | [place] | [phone] | | [facility] | | [address] | | | - LABORATORY | | [...] ST. | [address] | [place] | [phone] | | [facility] | | [address] | | | - LABORATORY | | [...] | | | | ROSALBA VERDUGO MD ([id number]) | | | | | | on [...]
--- OUTSIDE RECORDS SUMMARY | ~2019-09-12 | XMS | Encounter Summary ---
Demographics + + + | Address | [address] | | | [place] [address] | + + + | Home Phone [...] | Author | [facility] | | | and Clarkeana | + + + | Organization | [facility] | | | [...] | | | | | [place] [address] | | + + + + + | Valentín Saleh | ECON | [address] | | | | | [place] [address] | | + + + + + | Roberto Carlos Lennon | LEVI | Unknown | | + + + + + Care Team Providers + +------+ + | Care Theology Teacher Name | Role | Phone | [...] (moderate); HTN CKD | | | | [place], [place] | [address] [place], [place] | UNS W/CKD STAGE I | | | | [address] | [address] | THRU STAGE IV/UNS | | | | [phone] | | | +--------+ + + + [...] | | | | | | [place] [address] | | | | | | [phone] | | | | | | | [...] [address] | [place] | [phone] | | [facility] | | [address] | | | - LABORATORY | | | | + + + + + | [facility] [facility] | [address] | [place], [place] | | | [facility] | | [address], [facility] [[email or web address]] | | | [...] | [facility] | [address] | [place] | [phone] | | [facility] | | [address] | | | - LABORATORY | | | | + + + + + | [facility] | [address] | [place] | | | [facility] | | [address] | | | - LABORATORY | [...] | | Cells | | | [facility] | | | | [...] | [facility] | [address] | [place] | [phone] | | [facility] | | [address] | | | - LABORATORY | | | | + + + + + | [facility] | [address] | [place], [place] | | | [facility] | | [address], [facility] [[email or web address]] | | | [...] | [facility] | [address] | [place] | [phone] | | [facility] | | [address] | | | - LABORATORY | | | | + + + + + | [facility] | [address] | [place] | | | [facility] | | [address] [place] [address] | | | - LABORATORY | | [...]
--- OUTSIDE RECORDS SUMMARY | ~2019-09-12 | XMS | Encounter Summary ---
Demographics + + + | Address | [address] | | | [place] [address] | + + + | Home Phone [...] | [facility] | | | and Clarkeana | + + + | Organization | [facility] [...] | | | | | [place] [address] | | + + + + + | Valentín Saleh | ECON | [address] | | | | | [place] [address] | | + + + + + | Roberto Carlos Lennon | LEVI | Unknown | | + + + + + Care Team Providers + +------+ + | Care Senior Asic Engineer Name | Role | Phone | [...] | 05/01/ | Refill | [facility] [place] | Stephenie Paul, | Medication Refill | | 2012 | | [facility] [address] | [address] | | | | | [place], | [place], | | | | | [place] [address] | [place] [address] | | | | | [phone] | [phone] | | | | | | | [...] | | | | | | [place] [address] | | | | | | [phone] | | | | | | | | +--------+---------+ + + + documented as of this encounter Visit Diagnoses Not on filedocumented in this encounter"
--- OUTSIDE RECORDS SUMMARY | ~2019-09-12 | XMS | Encounter Summary ---
Demographics + + + | Address | [address] | | | [place] [address] | + + + | Home Phone [...] Author | [facility] | | | and Clarkeana | + + + | Organization | [facility] | | | [...] | | | | | [place] [address] | | + + + + + | Valentín Saleh | ECON | [address] | | | | | [place] [address] | | + + + + + | Roberto Carlos Lennon | LEVI | Unknown | | + + + + + Care Team Providers + +------+ + | Care Video Game Animator Name | Role | Phone | + [...] | 10/11/ | Telephone | [facility] [place] [facility] | Francois Pascal, | DME | | 2019 | | [facility] [place] | [address] | | | | | [address] | [address] [place], | | | | | [place] | [place] [address] | | | | | [address] | [phone] | | | | | [phone] | | | +--------+ + + + [...] Miscellaneous Notes Telephone Encounter - Kacy Delaney, Interior Design Assistant - 10/12/2018 9:29 AM PDTFaxed s igned rx and office visit notes to [facility]. elephone Encounter - Diamond Sebastian RN - 10/12/19 19 2:16 PM PDTJustine with [facility] calls in and reports that the patient is in the proce ss of transferring from their facility to an adult family home. The patient and facility are requesting a hospital bed and wheelchair from [facility]. In order to fully process this request [facility] needs most recent chart notes and an order for the wheelchair and hospital bed. Will pend for your review. Once orders are signed please fax to [facility] in [place]. Elect ronically signed by Francois Pascal MD [...] | | | | | | [place] [address] | | | | | | [phone] | | | | | | | [...]
--- OUTSIDE RECORDS SUMMARY | ~2019-09-12 | XMS | Encounter Summary ---
Demographics + + + | Address | [address] | | | [place] [address] | + + + | Home Phone [...] + | Author | [facility] | | | and [place] | + + + | Organization | [facility] | | [...] | | | | | [place] [address] | | + + + + + | Valentín Saleh | ECON | [phone] | | | | | [place] [address] | | + + + + + | Roberto Carlos Lennon | LEVI | Unknown | | + + + + + Care Team Providers + +------+ + | Care Pharmacy Coordinator Name | Role | Phone | [...] [place], | | | | | [place], [place] | [place] [address] | | | | | [address] | [phone] | | | | | [phone] | | | +--------+ + + + [...] | | | | | | [place] [address] | | | | | | [phone] | | | | | | | | +--------+---------+ + + + documented as of this encounter Visit Diagnoses Not on filedocumented in this encounter"
--- OUTSIDE RECORDS SUMMARY | ~2019-09-12 | XMS | Encounter Summary ---
Demographics + + + | Address | [address] | | | [place] [address] | + + + | Home Phone | | + + + | Preferred Language | Unknown | + + + | Marital Status | | + + + | Gnosticist Affiliation | Unknown | + + + | Race | Unknown | + + + | Ethnic Group | Unknown | + + + Author + + + | Author | [facility] | | | and [place]ana | + + + | Organization | [facility] | | | [...] | | | | | [place] [address] | | + + + + + | Valentín Saleh | ECON | [address] | | | | | [place] [address] | | + + + + + | Roberto Carlos Lennon | LEVI | Unknown | | + + + + + Care Team Providers + +------+ + | Care Regional Sales Engineer Name | Role | Phone | [...] [address] | [facility] | (MODERATE) (Primary | | | | [place], [place] | [address] [place], [place] | Dx); Uncontrolled | | | | [address] | [address] | type 2 diabetes | | | | [phone] | | mellitus with | | | | | | diabetic | | | | | | nephropathy, | | | | | | unspecified 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
--- OUTSIDE RECORDS SUMMARY | ~2019-09-12 | XMS | Encounter Summary ---
Demographics + + + | Address | [address] | | | [place] [address] | + + + | Home Phone [...] + | Author | [facility] | | | and [place] | + + + | Organization | [facility] [...] | | | | | [place] [address] | | + + + + + | Valentín Saleh | ECON | [address] | | | | | [place] [address] | | + + + + + | Roberto Carlos Lennon | LEVI | Unknown | | + + + + + Care Team Providers + +------+ + | Care It Administrative Assistant Name | Role | Phone | [...] | 07/02/ | Refill | [facility] [place] [facility] | Francois Pascal, | Medication Refill | | 2012 | | [facility] [place] | [address] | | | | | [address] | [address] [place], | | | | | [place] | [place] [address] | | | | | [address] | [phone] | | | | | [phone] | | | +--------+--------+ + + + [...] | | | | | | [place] [address] | | | | | | [phone] | | | | | | | | +--------+---------+ + + + documented as of this encounter Visit Diagnoses Not on filedocumented in this encounter"
--- OUTSIDE RECORDS SUMMARY | ~2019-09-12 | XMS | Encounter Summary ---
Demographics + + + | Address | [address] | | | [place] [address] | + + + | Home Phone [...] Author | [facility] | | | and [place] | + + + | Organization | [facility] | | [...] | | | | | [place] [address] | | + + + + + | Valentín Saleh | ECON | [address] | | | | | [place] [address] | | + + + + + | Roberto Carlos Lennon | LEVI | Unknown | | + + + + + Care Team Providers + +------+ + | Care Network Developer Name | Role | Phone | [...] [address] | [address] [facility] | (MODERATE) (Primary | | | | [place], [place] | [address] [place], [place] | Dx) | | | | [address] | [address] | | | | | [phone] | | | +--------+ + + + [...] PSTLabs for upcoming nephrology appointment sent to: [facility] documented in t his encounter Plan of [...] | | | | | | [place] [address] | | | | | | [phone] | | | | | | | | +--------+---------+ + + + documented as of this encounter Visit Diagnoses + + | Diagnosis | + + | CHRONIC KIDNEY DISEASE STAGE III (MODERATE) - Primary Chronic kidney disease, Stage | | III (moderate) | + + documented in this encounter"
--- OUTSIDE RECORDS SUMMARY | ~2019-09-12 | XMS | Encounter Summary ---
Demographics + + + | Address | [address] | | | [place] [address] | + + + | Home Phone [...] Author | [facility] | | | and [place] | + + + | Organization | [facility] | [...] | | | | | [place] [address] | | + + + + + | Valentín Saelh | ECON | [address] | | | | | [place] [address] | | + + + + + | Roberto Carlos Lennon | LEVI | Unknown | | + + + + + Care Team Providers + +------+ + | Care Customer Relations Representative Name | Role | Phone | + +------+ + | Francois Pascal MD | PCP | | + +------+ + Encounter Details +--------+ + + + + | Date | Type | Department | Care Team | Description | +--------+ + + + + | 03/02/ | Hospital | [facility] | Francois Pascal, | | | 2011 - | Encounter | MED CTR XRAY [address] | [address] | | | | | [place] | [address] [place], | | | 03/04/ | | [place] [address] | [place] [address] | | | 2011 | | [phone] | [phone] | | | | | | | [...] | | | | | | mellitus) ([facility]) | | | | | [...] | | | | | | [place] [address] | | | | | | [phone] | | | | | | | [...] Performed At | + + + | [facility] | [facility] | | [address] | [facility] | | [ rep [address]] [ rep [facility] | | st zip] Signed | - IMAGING | | | | | Patient Name: ALYSON LENNON Physician: | | | SIMONE. : 1930 Age: 81 Sex: F Unit #: [id number] | | | Exam Date: 03/02/12 Location: [facility] | | | Report #: [id number] Page: | | | %(RAD)RES..mtdd.print.filter("pg") of %(RAD) | | | RES..mtdd.print.filter("tpg") | | | | | | Accession Number: [id number] | | | BILATERAL SCREENING MAMMOGRAM WITH [...] Transcribed Date/Time: 03/02/2012 11:10 | | | Bridge Contractor: <<Signature on File>> | | | | | | David Keen MD03/03/121926 <Electronically signed by | | | Jaden Keen MD> David Keen MD 03/02/12 1104 | | | Bridge Contractor: [employer] Zhbmnzrqumiwy12/27/12 1110 | | | | | + + + + + + + + | Performing | Address | City/State/Zipcode | Phone Number | | Organization | | | | + + + + + | [address] | [address] | [place] | [phone] | | [facility] | | [address] | | | - IMAGING | | | | + + + + + documented in this encounter Visit Diagnoses Not on filedocumented in this encounter
--- OUTSIDE RECORDS SUMMARY | ~2019-09-12 | XMS | Encounter Summary ---
Demographics + + + | Address | [address] | | | [place] [address] | + + + | Home Phone [...] | Author | [facility] | | | and [place] | + + + | Organization | [facility] | [...] | | | | | [place] [address] | | + + + + + | Valentín Saleh | ECON | [address] | | | | | [place] [address] | | + + + + + | Roberto Carlos Lennon | LEVI | [place] | | + + + + + Care Team Providers + +------+ + | Care Design Checker Name | Role | Phone | + +------+ + PCP | Unavailable | + +------+ + Encounter Details +--------+ + + + + | Date | Type | Department | Care Team | Description | +--------+ + + + + | 09/04/ | Hospital | [facility] | Francois Pascal, | | | 2008 | Encounter | MED CTR LABORATORY | [address] | | | | | [address] [place] | [address] [place], | | | | | [place] | [place] [address] | | | | | [address] | [phone] | | | | | [phone] | | | +--------+ + + + [...] | | | | | | [place] [address] | | | | | | [phone] | | | | | | | | +--------+---------+ + + + documented as of this encounter Visit Diagnoses Not on filedocumented in this encounter"
--- OUTSIDE RECORDS SUMMARY | ~2019-09-12 | XMS | Encounter Summary ---
Demographics + + + | Address | [address] | | | [place] [address] | + + + | Home Phone [...] + | Author | [facility] | | | and [place] | + + + | Organization | [facility] | [...] | | | | | [place] [address] | | + + + + + | Valentín Saleh | ECON | [address] | | | | | [place] [address] | | + + + + + | Roberto Carlos Lennon | LEVI | Unknown | | + + + + + Care Team Providers + +------+ + | Care Reinforcement Maker Name | Role | Phone | [...] + + | 11/04/ | Refill | [facility] [place] | [place], | Medication Refill | | 2015 | | NEPHROLOGY [address] | [address] | | | | | [facility] | [address] [facility] | | | | | [place], [place] | [address] [place] | | | | | [address] | [address] | | | | | [phone] | | | +--------+--------+ + + + [...] | | | | | | [place] [address] | | | | | | [phone] | | | | | | | | +--------+---------+ + + + documented as of this encounter Visit Diagnoses Not on filedocumented in this encounter"
--- OUTSIDE RECORDS SUMMARY | ~2019-09-12 | XMS | Encounter Summary ---
Demographics + + + | Address | [address] | | | [place] [address] | + + + | Home Phone [...] | [facility] | | | and [place] | + + + | Organization | [facility] | [...] | | | | | [place] [address] | | + + + + + | Valentín Saleh | ECON | [address] | | | | | [place] [address] | | + + + + + | Roberto Carlos Lennon | LEVI | Unknown | | + + + + + Care Team Providers + +------+ + | Care Lathe Hand Name | Role | Phone | + +------+ + | Francois Pascal MD | PCP | | + +------+ + Encounter Details +--------+ + + + + | Date | Type | Department | Care Team | Description | +--------+ + + + + | 11/16/ | Hospital | [facility] | Francois Pascal, | Type II diabetes | | 2016 | Encounter | MED CTR LABORATORY | [address] | mellitus with renal | | | | [address] [place] | [address] [place], | manifestations, | | | | [place], [place] | [place] [address] | uncontrolled ([facility]) | | | | [address] | [phone] | | | | | [phone] | | | +--------+ + + + [...] | | | | | | [place] [address] | | | | | | [phone] | | | | | | | [...] [address] | [place] | [phone] | | [facility] | | [address] | | | - LABORATORY | | [...]
--- OUTSIDE RECORDS SUMMARY | ~2019-09-12 | XMS | Encounter Summary ---
Demographics + + + | Address | [address] | | | [place] [address] | + + + | Home Phone [...] Author | [facility] | | | and [place]ana | + + + | Organization | [facility] | | | [...] | | | | | [place] [address] | | + + + + + | Valentín Saleh | ECON | [address] | | | | | [place] [address] | | + + + + + | Roberto Carlos Lennon | LEVI | Unknown | | + + + + + Care Team Providers + +------+ + | Care Steam Fitter Helper Name | Role | Phone | [...] | 09/30/ | Refill | [facility] [place] [facility] | Francois Pascal, | Medication Refill | | 2014 | | [facility] | [address] | | | | | [address] | [address] [place] [address], | | | | | [place] | [place] [address] | | | | | [address] | [phone] | | | | | [phone] | | | +--------+--------+ + + + [...] | | | | | | [place] [address] | | | | | | [phone] | | | | | | | | +--------+---------+ + + + documented as of this encounter Visit Diagnoses Not on filedocumented in this encounter"
--- OUTSIDE RECORDS SUMMARY | ~2019-09-12 | XMS | Encounter Summary ---
Demographics + + + | Address | [address] | | | [place] [address] | + + + | Home Phone [...] Author | [facility] | | | and [place]ana | + + + | Organization | [facility] | [...] | | | | | [place] [address] | | + + + + + | Valentín Saleh | ECON | [address] | | | | | [place] [address] | | + + + + + | Roberto Carlos Lennon | LEVI | Unknown | | + + + + + Care Team Providers + +------+ + | Care Quality Review Specialist Name | Role | Phone | [...] | | | | | [address] [place] | [address] | | | | | [place] [address] | [place] [address] | | | | | [phone] | [phone] | | | | | | | [...] by | | | eral | Antecubital; [id number] | Maria Isabel Petersen RN | | [...] | | | | | | [place] [address] | | | | | | [phone] | | | | | | | | +--------+---------+ + + + documented as of this encounter Visit Diagnoses Not on filedocumented in this encounter"
--- OUTSIDE RECORDS SUMMARY | ~2019-09-12 | XMS | Encounter Summary ---
Demographics + + + | Address | [address] | | | [place] [address] | + + + | Home Phone [...] Author | [facility] | | | and [place] | + + + | Organization | [facility] [...] | | | | | [place] [address] | | + + + + + | Valentín Saleh | ECON | [address] | | | | | [place] [address] | | + + + + + | Roberto Carlos Lennon | LEVI | [place] | | + + + + + Care Team Providers + +------+ + | Care Supervisor Assembling Name | Role | Phone | + +------+ + PCP | Unavailable | + +------+ + Encounter Details +--------+ + + + + | Date | Type | Department | Care Team | Description | +--------+ + + + + | 09/26/ | Hospital | [facility] | Moris Isabel | | | 2007 | Encounter | MED CTR LABORATORY | MD [address] | | | | | [address] [place] | [address] [place] | | | | | [place] | [place], [place] [address] | | | | | [address] | [phone] | | | | | [phone] | | | +--------+ + + + [...] | | | | | | [place] [address] | | | | | | [phone] | | | | | | | | +--------+---------+ + + + documented as of this encounter Visit Diagnoses Not on filedocumented in this encounter"
--- OUTSIDE RECORDS SUMMARY | ~2019-09-12 | XMS | Encounter Summary ---
Demographics + + + | Address | [address] | | | [place] [address] | + + + | Home Phone [...] | Author | [facility] | | | and [place] | + + + | Organization | [facility] | [...] | | | | | [place] [address] | | + + + + + | Valentín Saleh | ECON | [address] | | | | | [place] [address] | | + + + + + | Roberto Carlso Lennon | LEVI | Unknown | | + + + + + Care Team Providers + +------+ + | Care Ornamenter Hand Name | Role | Phone | [...] | 10/03/ | Refill | [facility] [place] [facility] | Francois Pascal, | Medication Refill | | 2012 | | [facility] [place] | [address] | | | | | [address] | [address] [place] [address], | | | | | [place] | [place] [address] | | | | | [address] | [phone] | | | | | [phone] | | | +--------+--------+ + + + [...] | | | | | | [place] [address] | | | | | | [phone] | | | | | | | | +--------+---------+ + + + documented as of this encounter Visit Diagnoses Not on filedocumented in this encounter"
--- OUTSIDE RECORDS SUMMARY | ~2019-09-12 | XMS | Encounter Summary ---
Demographics + + + | Address | [address] | | | [place] [address] | + + + | Home Phone [...] | Author | [facility] | | | and [place]ana | + + + | Organization | [facility] | [...] | | | | | [place] [address] | | + + + + + | Valentín Saleh | ECON | [address] | | | | | [place] [address] | | + + + + + [...] + + + + | 09/12/ | Hospital | [facility] | | | | 2004 | Encounter | MED CTR LABORATORY | | | | | | [address] | | | | | | [place] | | | | | | [address] | | | | | | [phone] | | | +--------+ + + + [...] | | | | | | [place] [address] | | | | | | [phone] | | | | | | | | +--------+---------+ + + + documented as of this encounter Visit Diagnoses Not on filedocumented in this encounter"
--- OUTSIDE RECORDS SUMMARY | ~2019-09-12 | XMS | Encounter Summary ---
Demographics + + + | Address | [address] | | | [place] [address] | + + + | Home Phone [...] + | Author | [facility] | | | and Clarkeana | + + + | Organization | [facility] | [...] | | | | | [place] [address] | | + + + + + | Valentín Saleh | ECON | [address] | | | | | [place] [address] | | + + + + + | Roberto Carlos Lennon | LEVI | [place] | | + + + + + Care Team Providers + +------+ + | Care Router Operator Radial Name | Role | Phone | + +------+ + PCP | Unavailable | + +------+ + Encounter Details +--------+ + + + + | Date | Type | Department | Care Team | Description | +--------+ + + + + | 05/10/ | Hospital | [facility] | | | | 2006 | Encounter | MED CTR LABORATORY | | | | | | [address] | | | | | | [place] | | | | | | [address] | | | | | | [phone] | | | +--------+ + + + [...] | | | | | | [place] [address] | | | | | | [phone] | | | | | | | | +--------+---------+ + + + documented as of this encounter Visit Diagnoses Not on filedocumented in this encounter"
--- OUTSIDE RECORDS SUMMARY | ~2019-09-12 | XMS | Encounter Summary ---
Demographics + + + | Address | [address] | | | [place] [address] | + + + | Home Phone [...] Author | [facility] | | | and Clarkeana | + + + | Organization | [facility] | | [...] | | | | | [place] [address] | | + + + + + | Valentín Saleh | ECON | [id number] | | | | | [place] [address] | | + + + + + | Roberto Carlos Lennon | LEVI | Unknown | | + + + + + Care Team Providers + +------+ + | Care Acrobatic Rigger Name | Role | Phone | + [...] + + | 06/28/ | Office | [facility] | Francois Pascal, | CHRONIC KIDNEY | | 2012 | Visit | MEDICINE RODGER | [address] | DISEASE STAGE III | | | | [address] | [address], | (MODERATE) (Primary | | | | [place] | [place] [address] | Dx); DM (diabetes | | | | [address] | [phone] | mellitus) ([facility]); | | | | [phone] | | Hyperlipidemia; | | | | [...] VSD Father 50 Pneumonia Family Hx of Lemhi's chorea Sister and 2 brothers: CAD, Lemhi's Disease to [place] - with 2 Healthy Children No kidney disease in family. Social History: Reviewed history from 08/11/2011 and no changes required: Born in [facility] for 46 years. and Remarried 2 [...] | | | | | | [place] [address] | | | | | | [phone] | | | | | | | [...]
--- OUTSIDE RECORDS SUMMARY | ~2019-09-12 | XMS | Encounter Summary ---
Demographics + + + | Address | [address] | | | [place] [address] | + + + | Home Phone [...] + | Author | [facility] | | | and Clarkeana | + + + | Organization | [facility] | | | [...] | | | | | [place] [address] | | + + + + + | Valentín Saleh | ECON | [id number] | | | | | [place] [address] | | + + + + + | Roberto Carlos Lennon | LEVI | Unknown | | + + + + + Care Team Providers + +------+ + | Care Swedger Name | Role | Phone | + [...] 2014 | | PHYSIATRY [address] | POSTAL INSPECTOR | (Primary Dx) | | | | [address] | | | | | | [place] | | | | | | [address] | | | | | | [phone] | | | +--------+ + + + [...] 2019 | Visit | | [address] | | | | | | [place], | | | | | | [place] [address] | | | | | | [phone] | | | | | | | [...] to the fluoroscopy suite for a [facility] | | fluoroscopically-guided left intraarticular ankle [...] + | [address] | [address] | [place], [place] | [phone] | | [facility] | | [address] | | | - IMAGING | | | | + + + + + documented in this encounter Visit Diagnoses + + | Diagnosis | + + | Left ankle pain - Primary Pain in joint, ankle and foot | + + documented in this encounter"
--- OUTSIDE RECORDS SUMMARY | ~2019-09-12 | XMS | Encounter Summary ---
Demographics + + + | Address | [address] | | | [place] [address] | + + + | Home Phone [...] Author | [facility] | | | and Clarkeana | + + + | Organization | [facility] | [...] | | | | | [place] [address] | | + + + + + | Valentín Saleh | ECON | [phone] | | | | | [place] [address] | | + + + + + | Roberto Carlos Lennon | LEVI | Jeyson | | + + + + + Care Team Providers + +------+ + | Care Horse Doctor Name | Role | Phone | + +------+ + PCP | Unavailable | + +------+ + Encounter Details +--------+ + + + + | Date | Type | Department | Care Team | Description | +--------+ + + + + | 11/28/ | Hospital | [facility] | Francois Pascal, | | | 2008 | Encounter | MED CTR LABORATORY | [address] | | | | | [address] [place] | [address], | | | | | [place] | [place] [address] | | | | | [address] | [phone] | | | | | [phone] | | | +--------+ + + + [...] | | | | | | [place] [address] | | | | | | [phone] | | | | | | | | +--------+---------+ + + + documented as of this encounter Visit Diagnoses Not on filedocumented in this encounter"
--- OUTSIDE RECORDS SUMMARY | ~2019-09-12 | XMS | Encounter Summary ---
Demographics + + + | Address | [address] | | | [place] [address] | + + + | Home Phone [...] | Author | [facility] | | | and Clarkeana | + + + | Organization | [facility] | [...] | | | | | [place] [address] | | + + + + + | Valentín Saleh | ECON | [address] | | | | | [place] [address] | | + + + + + | Roberto Carlos Lennon | LEVI | Unknown | | + + + + + Care Team Providers + +------+ + | Care Health Sciences Department Chair Name | Role | Phone | + [...] + + | 08/03/ | Telephone | [facility] | Francois Pascal, | Medication Refill | | 2014 | | MEDICINE [place] | [address] | | | | | [address] | [address], | | | | | [place] | [place] [address] | | | | | [address] | [phone] | | | | | [phone] | | | +--------+ + + + [...] | | | | | | [place] [address] | | | | | | [phone] | | | | | | | | +--------+---------+ + + + documented as of this encounter Visit Diagnoses Not on filedocumented in this encounter"
--- OUTSIDE RECORDS SUMMARY | ~2019-09-12 | XMS | Encounter Summary ---
Demographics + + + | Address | [address] | | | [place] [address] | + + + | Home Phone [...] + | Author | [facility] | | | and Clarkeana | + + + | Organization | [facility] | | [...] | | | | | [place] [address] | | + + + + + | Valentín Saleh | ECON | [address] | | | | | [place] [address] | | + + + + + | Roberto Carlos Lennon | LEVI | Unknown | | + + + + + Care Team Providers + +------+ + | Care Chemist Water Purification Name | Role | Phone | + +------+ + | Francois Pascal MD | PCP | | + +------+ + Encounter Details +--------+ + + + + | Date | Type | Department | Care Team | Description | +--------+ + + + + | 04/01/ | Hospital | [facility] | Fackenthall, | CHRONIC KIDNEY | | 2017 | Encounter | MED CTR LABORATORY | [address] | DISEASE STAGE III | | | | [address] [place] | [address] [facility] | (MODERATE) | | | | [place] | [address] | | | | | [address] | [address] | | | | | [phone] | | | +--------+ + + + [...] | | 0 | | | | Wrroumr-Yvuaiywws-Ep | mouth Daily. | | | | [...] | 2020 | Visit | | [address] [facility] | | | | | | [place], | | | | | | [place] [address] | | | | | | [phone] | | | | | | | [...] [address] | [place] | [phone] | | [facility] | | [address] | | | - LABORATORY | | [...] + | [facility] | [address] | [place] | [phone] | | [facility] | | [address] | | | - LABORATORY | | [...] mL/min/1.73m2 | [facility] | | | [place] | | | MEDICAL | | | [...] 3.8 | 2.5 - 4.6 mg/dL | MARISELA [...] + | [address] | [address] | [place] | [phone] | | [facility] | | [address] | | | - LABORATORY | | | | + + + + + documented in this encounter Visit Diagnoses + + | Diagnosis | + + | CHRONIC KIDNEY DISEASE STAGE III (MODERATE) Chronic kidney disease, Stage III | | (moderate) | + + documented in this encounter"
--- OUTSIDE RECORDS SUMMARY | ~2019-09-12 | XMS | Encounter Summary ---
Demographics + + + | Address | [address] | | | [place] [address] | + + + | Home Phone [...] Author | [facility] | | | and Clarkeana | + + + | Organization | [facility] | | [...] | | | | | [place] [address] | | + + + + + | Valentín Saleh | ECON | [address] | | | | | [place] [address] | | + + + + + | Roberto Carlos Lennon | LEVI | Unknown | | + + + + + Care Team Providers + +------+ + | Care Final Inspector Shuttle Name | Role | Phone | + [...] + + | 10/17/ | Office | [facility] | Francois Pascal, | DM (diabetes | | 2015 | Visit | MEDICINE [address] | [address] | mellitus screen) | | | | [address], | [address] [place], | (Primary Dx); DM | | | | [place] [address] | [place] [address] | (diabetes mellitus) | | | | [phone] | [phone] | (HCC); Transient | | | | [...] visit, she had went to eat at [facility]. She has been fatigue and depr [...] VSD Father 50 Pneumonia Family Hx of Leelanau's chorea Sister and 2 brothers: CAD, Airam's Disease to [place] - with 2 Healthy Children No kidney disease in family. Social History: Reviewed history from 08/11/2011 and no changes required: Born in [facility] [...] 2019 | Visit | | MD Rojas [facility] | | | | | | [place], | | | | | | [place] [address] | | | | | | [phone] | | | | | | | [...] | e | 2:37 PM | mellitus) ([facility]) | procedure are in the [...] | + + | DM (diabetes mellitus) ([facility]) Type II or unspecified type diabetes mellitus without | | mention of complication, not stated as uncontrolled | + + | Transient alteration of awareness | + + | Head contusion, initial encounter | + + documented in this encounter
--- OUTSIDE RECORDS SUMMARY | ~2019-09-12 | XMS | Encounter Summary ---
Demographics + + + | Address | [address] | | | [place] [address] | + + + | Home Phone [...] | Author | [facility] | | | and Clarkeana | + + + | Organization | [facility] | [...] | | | | | [place] [address] | | + + + + + | Valentín Saleh | ECON | [id number] | | | | | [place] [address] | | + + + + + | Roberto Carlos Lennon | LEVI | Unknown | | + + + + + Care Team Providers + +------+ + | Care Oil Refinery Operator Name | Role | Phone | [...] | (MODERATE) (Primary | | | | [place], [place] | [address] [place], [place] | Dx) | | | | [address] | [address] | | | | | [phone] | | | +--------+ + + + [...] for nephrology appt on 07/06/12 sent to [facility] lab. documented in t his encounter [...] | | | | | | [place] [address] | | | | | | [phone] | | | | | | | | +--------+---------+ + + + documented as of this encounter Visit Diagnoses + + | Diagnosis | + + | CHRONIC KIDNEY DISEASE STAGE III (MODERATE) - Primary Chronic kidney disease, Stage | | III (moderate) | + + documented in this encounter"
--- OUTSIDE RECORDS SUMMARY | ~2019-09-12 | XMS | Encounter Summary ---
Demographics + + + | Address | [address] | | | [place] [address] | + + + | Home Phone [...] Author | [facility] | | | and Clarkeana | + + + | Organization | [facility] | | [...] | | | | | [place] [address] | | + + + + + | Valentín Saleh | ECON | [phone] | | | | | [place] [address] | | + + + + + | Roberto Carlos Lennon | LEVI | Unknown | | + + + + + Care Team Providers + +------+ + | Care Front End Web Designer Name | Role | Phone | + +------+ + | Francois Pascal MD | PCP | | + +------+ + Encounter Details +--------+ + + + + | Date | Type | Department | Care Team | Description | +--------+ + + + + | 05/22/ | Hospital | [facility] | [place], | CHRONIC KIDNEY | | 2013 | Encounter | MED CTR LABORATORY | [address] | DISEASE STAGE III | | | | [address] [place] | [address] | (MODERATE); | | | | [place], [place] | [address] [place], [place] | HYPERTENSION NEC; | | | | [address] | [address] | Vitamin D | | | | [phone] | | deficiency; Diabetes | | | | | Francois Pascal, | mellitus (HCC); | | | | | [address] | Hyperlipidemia; DM | | | | | [address] [place], | (diabetes mellitus) | | | | | [place] [address] | (HCC) | | | | | [phone] | | | | | | | [...] | | | | | | [place] [address] | | | | | | [phone] | | | | | | | [...] - 1.030 | [facility] | | | [place], | | | [facility] | | [...] [address] | [place] | [phone] | | [facility] | | [address] | | | - LABORATORY | | | | + + + + + | [facility] | [address] | [place] | | | [facility] | | [address], [facility] | | | [...] + | [facility] | [address] | [place], [place] | [phone] | | [facility] | | [address] | | | - LABORATORY | | | | + + + + + | [facility] | [address] | [place], [place] | | | [facility] | | [address] [place] [address] | | | - LABORATORY | | [...] | 1.10 | 0.60 - 1.30 | [facility] | | | | | mg/dL | [facility] | | | | | | MEDICAL | | | | | | CENTER - | | | | | | LABORATORY | | + + + + + + | eGFR if not | 48 (L)Comment: | >=60 | [facility] | | | | GLOMERULAR FILTRATION | mL/min/1.73m2 | [facility] | | | [place] | RATE,ESTIMATED | | MEDICAL | | | | mL/min/1.26x8Rnuf than | | CENTER - | | [...] + | [facility] | [address] | [place], [place] | [phone] | | [facility] | | [address] | | | - LABORATORY | | | | + + + + + | [facility] | [address] | [place], [place] | | | [facility] | | [address], [facility] | | | [...] + | [facility] | [address] | [place] | [phone] | | [facility] | | [address] | | | - LABORATORY | | | | + + + + + | [facility] | [address] | [place] | | | [facility] | | [address] | | | - LABORATORY [...] [address] | [place] | [phone] | | [facility] | | [address] | | | - LABORATORY | | | | + + + + + | [facility] | [address] | [place] | | | [facility] | | [address], [facility] | | | [...] + | [facility] | [address] | [place], [place] | [phone] | | [facility] | | [address] | | | - LABORATORY | | | | + + + + + | [facility] | [address] | [place], [place] | | | [facility] | | [address], [facility] | | | [...] (H) | 7 - 18 mg/dL | [facility] | | | | | | [facility] | | | | | | MEDICAL | | | | | | CENTER - | | | | | | LABORATORY | | + + + + + + | Creatinine | 1.07 | 0.60 - 1.30 | [facility] | | | | | mg/dL | [facility] | | | | | | MEDICAL | | | | | | CENTER - | | | | | | LABORATORY | | + + + + + + | eGFR if not | 49 (L)Comment: | >=60 | [facility] | | | | GLOMERULAR FILTRATION | mL/min/1.73m2 | [facility] | | | [place] | RATE,ESTIMATED | | MEDICAL | | | | mL/min/1.95l8Romh than | | CENTER - | | [...] [address] | [place] | [phone] | | [facility] | | [address] | | | - LABORATORY | | | | + + + + + | [facility] | [address] | [place], [place] | | | [facility] | | [address], [facility] | | | [...]
--- OUTSIDE RECORDS SUMMARY | ~2019-09-12 | XMS | Encounter Summary ---
Demographics + + + | Address | [address] | | | [place] [address] | + + + | Home Phone [...] | Author | [facility] | | | and Clarkeana | + + + | Organization | [facility] [...] | | | | | [place] [address] | | + + + + + | Valentín Saleh | ECON | [address] | | | | | [place] [address] | | + + + + + | Roberto Carlos Lennon | LEVI | Unknown | | + + + + + Care Team Providers + +------+ + | Care Sanitation Engineer Name | Role | Phone | [...] [address] | | | | | [address] [facility] [address] | [address] [facility] | | | | | [place], [place] | [address] [place] | | | | | [address] | [address] | | | | | [phone] | | | +--------+ + + + [...] | | | | | | [place] [address] | | | | | | [phone] | | | | | | | | +--------+---------+ + + + documented as of this encounter Visit Diagnoses Not on filedocumented in this encounter"
--- OUTSIDE RECORDS SUMMARY | ~2019-09-12 | XMS | Encounter Summary ---
Demographics + + + | Address | [address] | | | [place] [address] | + + + | Home Phone [...] + | Author | [facility] | | | and Clarkeana | + + + | Organization | [facility] [...] | | | | | [place] [address] | | + + + + + | Valentín Saleh | ECON | [address] | | | | | [place] [address] | | + + + + + | Roberto Carlos Lennon | LEVI | Unknown | | + + + + + Care Team Providers + +------+ + | Care Hospital Administrator Name | Role | Phone | [...] + + | 12/19/ | Office | [facility] | Francois Pascal, | HYPERTENSION NEC | | 2014 | Visit | MEDICINE [address] [place] [address] | [address] | (Primary Dx); | | | | [address] [place], | [address], | Hyperlipidemia; DM | | | | [place] [address] | [place] [address] | (diabetes mellitus); | | | | [phone] | [phone] | CHRONIC KIDNEY | | | | [...] still feeling slightly sore though. 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 CKD, She urinates normally. There is no blood in her urine, She feels as though she drink s plenty of fluids. She follows with [facility]. HTN There is no chest pain SOB [...] Her thinks she should go to the [facility] in [place] and get in the water. Past Medical [...] and 2 brothers: CAD, Airam's Disease to [place] - with 2 Healthy Children No kidney disease in family. Social History: Reviewed history from 08/11/2011 and no changes required: Born in [facility] for 47 [...] | MD Rojas [facility] | | | | | | [place] [place], | | | | | | [place] [address] | | | | | | [phone] | | | | | | | [...] - 1.030 | [facility] | | | [place], | | | [facility] | | [...] + | [facility] | [address] | [place] | [phone] | | [facility] | | [address] | | | - LABORATORY | | | | + + + + + | [facility] | [address] | [place], [place] | | | [facility] | | [address] | | | - [...] + | [facility] | [address] | [place] | [phone] | | [facility] | | [address] | | | - LABORATORY | | | | + + + + + | [facility] | [address] | [place] | | | [facility] | | [address], [facility] | | | - LABORATORY [...] + | [facility] | [address] | [place], [place] | [phone] | | [facility] | | [address] | | | - LABORATORY | | | | + + + + + | [facility] | [address] | [place], [place] | | | [facility] | | [address] | | | - [...] [address] | [place] | [phone] | | [facility] | | [address] | | | - LABORATORY | | | | + + + + + | [facility] | [address] | [place] | | | [facility] | | [address], [facility] | | | - LABORATORY [...] | | MEDICAL | | | | mL/min/1.82v4Lywa than | | CENTER - | | [...] | 9.9 | 8.3 - 10.5 | [facility] | | | | | mg/dL | [...] [address] | [place] | [phone] | | [facility] | | [address] | | | - LABORATORY | | | | + + + + + | [facility] | [address] | [place], [place] | | | [facility] | | [address], [facility] | | | - LABORATORY [...]
--- OUTSIDE RECORDS SUMMARY | ~2019-09-12 | XMS | Encounter Summary ---
Demographics + + + | Address | [address] | | | [place] [address] | + + + | Home Phone [...] | Author | [facility] | | | and Clarkeana | + + + | Organization | [facility] | [...] | | | | | [place] [address] | | + + + + + | Valentín Saleh | ECON | [address] | | | | | [place] [address] | | + + + + + | Roberto Carlos Lennon | LEVI | Unknown | | + + + + + Care Team Providers + +------+ + | Care Sales Promotion Coordinator Name | Role | Phone | [...] + + | 05/28/ | Office | [facility] | [place], | CHRONIC KIDNEY | | 2013 | Visit | NEPHROLOGY [address] | [address] | DISEASE STAGE III | | | | [address] | [address] | (MODERATE) (Primary | | | | [place] | [address] [place] | Dx); HTN CKD UNS | | | | [address] | [address] | W/CKD STAGE I THRU | | | | [phone] | | STAGE IV/UNS; | | | [...] mellitus, type 2) ([facility]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
--- OUTSIDE RECORDS SUMMARY | ~2019-09-12 | XMS | Encounter Summary ---
Demographics + + + | Address | [address] | | | [place] [address] | + + + | Home Phone [...] | [facility] | | | and Clarkeana | + + + | Organization | [facility] [...] | | | | | [place] [address] | | + + + + + | Valentín Saleh | ECON | [address] | | | | | [place] [address] | | + + + + + | Roberto Carlos Lennon | LEVI | Unknown | | + + + + + Care Team Providers + +------+ + | Care Community Life Director Name | Role | Phone | [...] Refill | | 2013 | | MEDICINE [facility] | [address] | | | | | [address] | [address], | | | | | [place] | [place] [address] | | | | | [address] | [phone] | | | | | [phone] | | | +--------+--------+ + + + [...] | | | | | | [place] [address] | | | | | | [phone] | | | | | | | | +--------+---------+ + + + documented as of this encounter Visit Diagnoses Not on filedocumented in this encounter"
--- OUTSIDE RECORDS SUMMARY | ~2019-09-12 | XMS | Encounter Summary ---
Demographics + + + | Address | [address] | | | [place] [address] | + + + | Home Phone [...] | Author | [facility] | | | and Clarkeana | + + + | Organization | [facility] [...] | | | | | [place] [address] | | + + + + + | Valentín Saleh | ECON | [address] | | | | | [place] [address] | | + + + + + | Roberto Carlos Lennon | LEVI | [place] | | + + + + + Care Team Providers + +------+ + | Care Car Scrubber Name | Role | Phone | + +------+ + PCP | Unavailable | + +------+ + Encounter Details +--------+ + + + + | Date | Type | Department | Care Team | Description | +--------+ + + + + | 02/06/ | Hospital | [facility] | | | | 1997 | Encounter | MED CTR XRAY [address] | | | | | | [place] | | | | | | [place] [address] | | | | | | [phone] | | | +--------+ + + + [...] | | | | | | [place] [address] | | | | | | [phone] | | | | | | | | +--------+---------+ + + + documented as of this encounter Visit Diagnoses Not on filedocumented in this encounter"
--- OUTSIDE RECORDS SUMMARY | ~2019-09-12 | XMS | Encounter Summary ---
Demographics + + + | Address | [address] | | | [place] [address] | + + + | Home Phone [...] | Author | [facility] | | | and [place] | + + + | Organization | [facility] [...] | | | | | [place] [address] | | + + + + + | Valentín Saleh | ECON | [id number] | | | | | [place] [address] | | + + + + + | Roberto Carlos Lennon | LEVI | Unknown | | + + + + + Care Team Providers + +------+ + | Care Debug Technician Name | Role | Phone | + +------+ + | Francois Pascal MD | PCP | | + +------+ + Encounter Details +--------+ + + + + | Date | Type | Department | Care Team | Description | +--------+ + + + + | 07/16/ | Hospital | [facility] | Francois Pascal, | Essential | | 2016 | Encounter | MED CTR LABORATORY | [address] | hypertension; | | | | [address] [place] | [address] [place], | Diabetes mellitus | | | | [place], [place] | [place] [address] | due to underlying | | | | [address] | [phone] | condition with | | | | [phone] | | hyperglycemia (HCC); | | | [...] | | | | | | mellitus) ([facility]) | | | | | [...] | | | | | | [place] [address] | | | | | | [phone] | | | | | | | [...] [address] | [place] | [phone] | | [facility] | | [address] | | | - LABORATORY | | [...] + | [facility] | [address] | [place] | [phone] | | [facility] | | [address] | | | - LABORATORY | | [...] | | MEDICAL | | | | mL/min/1.97z5Htnk than | | CENTER - | | [...] [address] | [place] | [phone] | | [facility] | | [address] | | | - LABORATORY | | [...] [address] | [place] | [phone] | | [facility] | | [address] | | | - LABORATORY | | [...]
--- OUTSIDE RECORDS SUMMARY | ~2019-09-12 | XMS | Encounter Summary ---
Demographics + + + | Address | [address] | | | [place] [address] | + + + | Home Phone [...] Author | [facility] | | | and [place] | + + + | Organization | [facility] [...] | | | | | [place] [address] | | + + + + + | Valentín Saleh | ECON | [address] | | | | | [place] [address] | | + + + + + | Roberto Carlos Lennon | LEVI | Unknown | | + + + + + Care Team Providers + +------+ + | Care Massage Coordinator Name | Role | Phone | [...] [address] | [address] [facility] | (MODERATE) (Primary | | | | [place], [place] | [address] [place], [place] | Dx) | | | | [address] | [address] | | | | | [phone] | | | +--------+ + + + [...] | | | | | | [place] [address] | | | | | | [phone] | | | | | | | | +--------+---------+ + + + documented as of this encounter Visit Diagnoses + + | Diagnosis | + + | CHRONIC KIDNEY DISEASE STAGE III (MODERATE) - Primary Chronic kidney disease, Stage | | III (moderate) | + + documented in this encounter"
--- OUTSIDE RECORDS SUMMARY | ~2019-09-12 | XMS | Encounter Summary ---
Demographics + + + | Address | [address] | | | [place] [address] | + + + | Home Phone [...] Author | [facility] | | | and [place] | + + + | Organization | [facility] | [...] | | | | | [place] [address] | | + + + + + | Valentín Saleh | ECON | [id number] | | | | | [place] [address] | | + + + + + | Roberto Carlos Lennon | LEVI | Unknown | | + + + + + Care Team Providers + +------+ + | Care Manager Process Improvement Name | Role | Phone | + [...] | | | | | | [place] [address] | | | | | | [phone] | | | +--------+ + + + [...] | | | | | | [place] [address] | | | | | | [phone] | | | | | | | | +--------+---------+ + + + documented as of this encounter Visit Diagnoses Not on filedocumented in this encounter"
--- OUTSIDE RECORDS SUMMARY | ~2019-09-12 | XMS | Encounter Summary ---
Demographics + + + | Address | [address] | | | [place] [address] | + + + | Home Phone [...] | [facility] | | | and [place] | + + + | Organization | [facility] | | | [...] | | | | | [place] [address] | | + + + + + | Valentín Saleh | ECON | [address] | | | | | [place] [address] | | + + + + + | Roberto Carlos Lennon | LEVI | Unknown | | + + + + + Care Team Providers + +------+ + | Care Circuit Board Repair Technician Name | Role | Phone [...] | MEDICINE [address] | [address] | | | | | [place], | [address] [place], | | | | | [place] [address] | [place] [address] | | | | | [phone] | [phone] | | | | | | | [...] | Visit | | MD [address] [place] | | | | | | [place], | | | | | | [place] [address] | | | | | | [phone] | | | | | | | | +--------+---------+ + + + documented as of this encounter Visit Diagnoses + + | Diagnosis | + + | Type 2 diabetes mellitus with hyperglycemia, with long-term current use of insulin | | (HCC) - Primary | + + documented in this encounter"
--- OUTSIDE RECORDS SUMMARY | ~2019-09-12 | XMS | Encounter Summary ---
Demographics + + + | Address | [address] | | | [place] [address] | + + + | Home Phone [...] Author | [facility] | | | and [place] | + + + | Organization | [facility] [...] | | | | | [place] [address] | | + + + + + | Valentín Saleh | ECON | [phone] | | | | | [place] [address] | | + + + + + | Roberto Carlos Lennon | LEVI | [place] | | + + + + + Care Team Providers + +------+ + | Care Precinct Police Lieutenant Name | Role | Phone | + +------+ + PCP | Unavailable | + +------+ + Encounter Details +--------+ + + + + | Date | Type | Department | Care Team | Description | +--------+ + + + + | 03/28/ | Hospital | [facility] | | | | 2000 - | Encounter | MED CTR DIETARY | | | | | | [address] [place] | | | | 06/26/ | | [place] [address] | | | | 2000 | | [phone] | | | +--------+ + + + [...] | | | | | | [place] [address] | | | | | | [phone] | | | | | | | | +--------+---------+ + + + documented as of this encounter Visit Diagnoses Not on filedocumented in this encounter"
--- OUTSIDE RECORDS SUMMARY | ~2019-09-12 | XMS | Encounter Summary ---
Demographics + + + | Address | [address] | | | [place] [address] | + + + | Home Phone [...] | [facility] | | | and [place] | + + + | Organization | [facility] | [...] | | | | | [place] [address] | | + + + + + | Valentín Saleh | ECON | [phone] | | | | | [place] [address] | | + + + + + | Roberto Carlos Lennon | LEVI | Unknown | | + + + + + Care Team Providers + +------+ + | Care Dude Wrangler Name | Role | Phone | + [...] + + | 02/26/ | Documentati | [facility] | Cheyenne Caballero, | No Show | | 2014 | on | MED CTR THERAPY PT | CURING OVEN ATTENDANT [address] | | | | | OP [address] | [place] | | | | | [place] | [address] | | | | | [address] | | | | | | [phone] | | | +--------+ + + + [...] Caballero PTA - 02/26/[address] [facility] [facility] [address] [place] [address] Cancellation/No Show Date: 02/26/2015 Patient Information Patient [...] | | | | | | [place] [address] | | | | | | [phone] | | | | | | | [...]
--- OUTSIDE RECORDS SUMMARY | ~2019-09-12 | XMS | Encounter Summary ---
Demographics + + + | Address | [address] | | | [place] [address] | + + + | Home Phone [...] + | Author | [facility] | | | and [place] | + + + | Organization | [facility] | | | [...] | | | | | [place] [address] | | + + + + + | Valentín Saleh | ECON | [address] | | | | | [place] [address] | | + + + + + | Roberto Carlos Lennon | LEVI | Unknown | | + + + + + Care Team Providers + +------+ + | Care Psychologist Personnel Name | Role | Phone | + [...] | 02/24/ | Refill | [facility] [place] [facility] | Francois Pascal, | Medication Refill | | 2014 | | MEDICINE [facility] | [address] | | | | | AVE [place], | [address] [place], | | | | | [place] [address] | [place] [address] | | | | | [phone] | [phone] | | | | | | | [...] | | | | | | [place] [address] | | | | | | [phone] | | | | | | | | +--------+---------+ + + + documented as of this encounter Visit Diagnoses Not on filedocumented in this encounter"
--- OUTSIDE RECORDS SUMMARY | ~2019-09-12 | XMS | Encounter Summary ---
Demographics + + + | Address | [address] | | | [place] [address] | + + + | Home Phone [...] + | Author | [facility] | | | and [place] | + + + | Organization | [facility] | [...] | | | | | [place] [address] | | + + + + + | Valentín Saleh | ECON | [address] | | | | | [place] [address] | | + + + + + | Roberto Carlos Lennon | LEVI | Unknown | | + + + + + Care Team Providers + +------+ + | Care Solar Designer Name | Role | Phone | [...] Refill | | 2013 | | MEDICINE [facility] [place] | [address] | | | | | AVE [place], | [address] [place], | | | | | [place] [address] | [place] [address] | | | | | [phone] | [phone] | | | | | | | [...] | | | | | | [place] [address] | | | | | | [phone] | | | | | | | | +--------+---------+ + + + documented as of this encounter Visit Diagnoses Not on filedocumented in this encounter"
--- OUTSIDE RECORDS SUMMARY | ~2019-09-12 | XMS | Encounter Summary ---
Demographics + + + | Address | [address] | | | [place] [address] | + + + | Home Phone [...] | Author | [facility] | | | and [place] | + + + | Organization | [facility] | [...] | | | | | [place] [address] | | + + + + + | Valentín Saleh | ECON | [address] | | | | | [place] [address] | | + + + + + | Roberto Carlos Lennon | LEVI | Unknown | | + + + + + Care Team Providers + +------+ + | Care Street Sweeper Operator Name | Role | Phone | [...] + | 11/23/ | Refill | [facility] | Stephenie Paul, | Medication Refill | | 2014 | | CARDIOLOGY [address] | MD [address] [place] | | | | | [place], | [place], | | | | | [place] [address] | [place] [address] | | | | | [phone] | [phone] | | | | | | | [...] | | | | | | [place] [address] | | | | | | [phone] | | | | | | | | +--------+---------+ + + + documented as of this encounter Visit Diagnoses Not on filedocumented in this encounter"
--- OUTSIDE RECORDS SUMMARY | ~2019-09-12 | XMS | Encounter Summary ---
Demographics + + + | Address | [address] | | | [place] [address] | + + + | Home Phone [...] | [facility] | | | and [place] | + + + | Organization | [facility] | [...] | | | | | [place] [address] | | + + + + + | Valentín Saleh | ECON | [address] | | | | | [place] [address] | | + + + + + | Roberto Carlos Lennon | LEVI | Unknown | | + + + + + Care Team Providers + +------+ + | Care Military Nurse Name | Role | Phone | [...] | 07/17/ | Refill | [facility] [place] [facility] | Francois Pascal, | Medication Refill | | 2020 | | [facility] | [address] | | | | | [address] | [address] [place], | | | | | [place] | [place] [address] | | | | | [address] | [phone] | | | | | [phone] | | | +--------+--------+ + + + [...] | | | | | | [place] [address] | | | | | | [phone] | | | | | | | | +--------+---------+ + + + documented as of this encounter Visit Diagnoses + + | Diagnosis | + + | Dyslipidemia Other and unspecified hyperlipidemia | + + documented in this encounter"
--- OUTSIDE RECORDS SUMMARY | ~2019-09-12 | XMS | Encounter Summary ---
Demographics + + + | Address | [address] | | | [place] [address] | + + + | Home Phone [...] + | Author | [facility] | | | and [place] | + + + | Organization | [facility] | | [...] | | | | | [place] [address] | | + + + + + | Valentín Saleh | ECON | [address] | | | | | [place] [address] | | + + + + + | Roberto Carlos Lennon | LEVI | [place] | | + + + + + Care Team Providers + +------+ + | Care Lighting Fixture Installer Name | Role | Phone | + +------+ + PCP | Unavailable | + +------+ + Encounter Details +--------+ + + + + | Date | Type | Department | Care Team | Description | +--------+ + + + + | 11/26/ | Hospital | [facility] | | | | 2002 | Encounter | MED CTR XRAY [address] | | | | | | [place] | | | | | | [place] [address] | | | | | | [phone] | | | +--------+ + + + [...] | | | | | | [place] [address] | | | | | | [phone] | | | | | | | | +--------+---------+ + + + documented as of this encounter Visit Diagnoses Not on filedocumented in this encounter"
--- OUTSIDE RECORDS SUMMARY | ~2019-09-12 | XMS | Encounter Summary ---
Demographics + + + | Address | [address] | | | [place] [address] | + + + | Home Phone [...] | Author | [facility] | | | and [place] | + + + | Organization | [facility] [...] | | | | | [place] [address] | | + + + + + | Valentín Saleh | ECON | [address] | | | | | [place] [address] | | + + + + + | Roberto Carlos Lennon | LEVI | Unknown | | + + + + + Care Team Providers + +------+ + | Care Director Of Retention Name | Role | Phone | + [...] + | 11/20/ | Telephone | [facility] | Francois Pascal, | Medication | | 2018 | | MEDICINE [place] | [address] | Management (Glucose | | | | [address] | [address] [place], | ) | | | | [place] | [place] [address] | | | | | [address] | [phone] | | | | | [phone] | | | +--------+ + + + [...] | | | | | | [place] [address] | | | | | | [phone] | | | | | | | | +--------+---------+ + + + documented as of this encounter Visit Diagnoses Not on filedocumented in this encounter"
--- OUTSIDE RECORDS SUMMARY | ~2019-09-12 | XMS | Encounter Summary ---
Demographics + + + | Address | [address] | | | [place] [address] | + + + | Home Phone [...] | [facility] | | | and [place] | + + + | Organization | [facility] | | [...] | | | | | [place] [address] | | + + + + + | Valentín Saleh | ECON | [phone] | | | | | [place] [address] | | + + + + + | Roberto Carlos Lennon | LEVI | Unknown | | + + + + + Care Team Providers + +------+ + | Care Cheese Cooker Name | Role | Phone | [...] | (Primary Dx) | | | | [place] [address] | [place] [address] | | | | | [phone] | [phone] | | | | | | | [...] | | | | | | [place] [address] | | | | | | [phone] | | | | | | | | +--------+---------+ + + + documented as of this encounter Visit Diagnoses + + | Diagnosis | + + | Senile dementia, uncomplicated (HCC) - Primary Senile dementia, uncomplicated | + + documented in this encounter"
--- OUTSIDE RECORDS SUMMARY | ~2019-09-12 | XMS | Encounter Summary ---
Demographics + + + | Address | [address] | | | [place] [address] | + + + | Home Phone [...] Author | [facility] | | | and [place] | + + + | Organization | [facility] [...] | | | | | [place] [address] | | + + + + + | Valentín Saleh | ECON | [address] | | | | | [place] [address] | | + + + + + | Roberto Carlos Lennon | LEVI | [place] | | + + + + + Care Team Providers + +------+ + | Care Backup Engineer Name | Role | Phone | + +------+ + PCP | Unavailable | + +------+ + Encounter Details +--------+ + + + + | Date | Type | Department | Care Team | Description | +--------+ + + + + | 02/05/ | Hospital | [facility] | | | | 2004 | Encounter | MED CTR LABORATORY | | | | | | [address] [place] | | | | | | [place] | | | | | | [address] | | | | | | [phone] | | | +--------+ + + + [...] | | | | | | [place] [address] | | | | | | [phone] | | | | | | | | +--------+---------+ + + + documented as of this encounter Visit Diagnoses Not on filedocumented in this encounter"
--- OUTSIDE RECORDS SUMMARY | ~2019-09-12 | XMS | Encounter Summary ---
Demographics + + + | Address | [address] | | | [place] [address] | + + + | Home Phone [...] + + | Author | [facility] | | | and [place] | + + + | Organization | [facility] | | [...] | | | | | [place] [address] | | + + + + + | Valentín Saleh | ECON | [address] | | | | | [place] [address] | | + + + + + | Roberto Carlos Lennon | LEVI | [place] | | + + + + + Care Team Providers + +------+ + | Care Business Trainer Name | Role | Phone | + +------+ + PCP | Unavailable | + +------+ + Encounter Details +--------+ + + + + | Date | Type | Department | Care Team | Description | +--------+ + + + + | 09/12/ | Hospital | [facility] | | | | 2004 | Encounter | MED CTR LABORATORY | | | | | | [address] [place] | | | | | | [place] | | | | | | [address] | | | | | | [phone] | | | +--------+ + + + [...] | | | | | | [place] [address] | | | | | | [phone] | | | | | | | | +--------+---------+ + + + documented as of this encounter Visit Diagnoses Not on filedocumented in this encounter"
--- OUTSIDE RECORDS SUMMARY | ~2019-09-12 | XMS | Encounter Summary ---
Demographics + + + | Address | [address] | | | [place] [address] | + + + | Home Phone [...] | Author | [facility] | | | and [place] | + + + | Organization | [facility] | [...] | | | | | [place] [address] | | + + + + + | Valentín Saleh | ECON | [address] | | | | | [place] [address] | | + + + + + | Roberto Carlos Lennon | LEVI | Unknown | | + + + + + Care Team Providers + +------+ + | Care Pig Lead Melter Helper Name | Role | Phone | + +------+ + | Francois Pascal MD | PCP | | + +------+ + Encounter Details +--------+ + + + + | Date | Type | Department | Care Team | Description | +--------+ + + + + | 05/27/ | Hospital | [facility] | Francois Pascal, | Essential | | 2017 | Encounter | MED CTR LABORATORY | [address] | hypertension with | | | | [address] [place] | [address] [place], | goal blood pressure | | | | [place], [place] | [place] [address] | less than 130/80; | | | | [address] | [phone] | Diabetes mellitus | | | | [phone] | | due to underlying | | | | | | condition with | | | | | | hyperglycemia, with | | | | | | long-term current | | | | | | use of insulin | | | | | | ([facility]); Coronary | | | | | | artery disease | | | | | | involving unalakleet | | | | | | coronary artery of | | | | | | unalakleet heart without | | | | | [...] | | 0 | | | | Cicfmgu-Ymoqaovdg-Qc | mouth Daily. | | | | [...] | 2019 | Visit | | [address] | | | | | | [place], | | | | | | [place] [address] | | | | | | [phone] | | | | | | | [...] the | | | | PDT | unalakleet coronary | results section. | | | | | artery of unal[place]et | | | | | | heart [...] [address] | [place] | [phone] | | [facility] | | [address] | | | - LABORATORY | | [...] [address] | [place] | [phone] | | [facility] | | [address] | | | - LABORATORY | | [...] ST. | [address] | [place], [place] | [phone] | | [facility] | | [address] | | | - LABORATORY | | [...] [address] | [place] | [phone] | | [facility] | | [address] | | | - LABORATORY | | [...] | 1.05 | 0.60 - 1.30 | [facility] | | | | | mg/dL | [facility] | | | | | [facility] | | | | | | [facility] - | | | | | | LABORATORY | | + + + + + + | eGFR if not | 50 (L)Comment: | >=60 | [facility] | | | | GLOMERULAR FILTRATION | mL/min/1.73m2 | [facility] | | | EMIRATI | RATE,ESTIMATED | | MEDICAL | | | | mL/min/1.85l4Jpem than | | CENTER - | | [...] ST. | [address] | [place], [place] | [phone] | | [facility] | | [address] | | | - LABORATORY | | [...] + + | Coronary artery disease involving unalakleet coronary artery of unalakleet heart without | | angina pectoris | + + documented in this encounter"
--- OUTSIDE RECORDS SUMMARY | ~2019-09-12 | XMS | Encounter Summary ---
Demographics + + + | Address | [address] | | | [place] [address] | + + + | Home Phone [...] Author | [facility] | | | and [place] | + + + | Organization | [facility] [...] | | | | | [place] [address] | | + + + + + | Valentín Saleh | ECON | [address] | | | | | [place] [address] | | + + + + + | Roberto Carlos Lennon | LEVI | [place] | | + + + + + Care Team Providers + +------+ + | Care Transit Specialist Name | Role | Phone | + +------+ + PCP | Unavailable | + +------+ + Encounter Details +--------+ + + + + | Date | Type | Department | Care Team | Description | +--------+ + + + + | 11/02/ | Hospital | [facility] | | | | 2005 | Encounter | MED CTR XRAY [address] | | | | | | [address] [place] | | | | | | [place] [address] | | | | | | [phone] | | | +--------+ + + + [...] | | | | | | [place] [address] | | | | | | [phone] | | | | | | | | +--------+---------+ + + + documented as of this encounter Visit Diagnoses Not on filedocumented in this encounter"
--- OUTSIDE RECORDS SUMMARY | ~2019-09-12 | XMS | Encounter Summary ---
Demographics + + + | Address | [address] | | | [place] [address] | + + + | Home Phone [...] [facility] | | | and [place] | + + + | Organization | [facility] [...] | | | | | [place] [address] | | + + + + + | Valentín Saleh | ECON | [address] | | | | | [place] [address] | | + + + + + | Roberto Carlos Lennon | LEVI | Unknown | | + + + + + Care Team Providers + +------+ + | Care Android Software Engineer Name | Role | Phone | [...] | 02/24/ | Refill | [facility] [place] [facility] | Francois Pascal, | Medication Refill | | 2014 | | MEDICINE [facility] | [address] | | | | | AVE [place], | [address] [place], | | | | | [place] [address] | [place] [address] | | | | | [phone] | [phone] | | | | | | | [...] | | | | | | [place] [address] | | | | | | [phone] | | | | | | | | +--------+---------+ + + + documented as of this encounter Visit Diagnoses Not on filedocumented in this encounter"
--- OUTSIDE RECORDS SUMMARY | ~2019-09-12 | XMS | Encounter Summary ---
Demographics + + + | Address | [address] | | | [place] [address] | + + + | Home Phone [...] [facility] | | | and [place] | + + + | Organization | [facility] | | [...] | | | | | [place] [address] | | + + + + + | Valentín Saleh | ECON | [address] | | | | | [place] [address] | | + + + + + | Roberto Carlos Lennon | LEVI | Unknown | | + + + + + Care Team Providers + +------+ + | Care Shaper And Presser Name | Role | Phone | + [...] + + | 10/17/ | Emergency | [facility] | Nik Olea, | Confusion (Primary | | 2014 | | [facility] EMERGENCY | MD [address] | Dx); Hyponatremia; | | | | CENTER [address] | [facility] [place] | Dehydration; Acute | | | | [place] | [place] [address] | on chronic renal | | | | [address] | [phone] | insufficiency; UTI | | | | [phone] | | (lower urinary tract | | [...] through Care Everywhere.BLADDER INFECTI ON, 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 documented in this [facility] ED Notes Nik Olea MD - 10/17/2014 3:41 PM PDTFormatting of this note might be different f rom the original. [facility] Alyson Lennon Emergency Department Encounter Note [address] [place] [id number] PCP:Francois Pascal MD [phone] CHIEF COMPLAINT Chief Complaint Patient presents with Fall Altered Mental Status HPI Alyson Lennon is a 83 y.o. female who presents to the emergency department with confusion . This patient fell 3 weeks ago. She was walking into it [employer] when she tripped and fell. 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 Consult references such as M Becualomedex for further information. metoprolol succinate (TOPROL-XL) 200 [...] Other (See Comment) Other family history of Cass's Disease Other (See Comment) Other No kidney [...] Concern None Social History Narrative Born in [facility] for 46 years. and Remarried [...] inferior leads consistent with prior inferior wall AL. Q waves in leads V1 through V5 with inverted T waves in leads V1 through V6 reflecting a prior anterior lateral AL. VT interval is 246. QRS duration is 136. [...] labs have changed in the 5 weeks [facility] e they were last checked. She now [...] 4 days. Specialty: Family Medicine Contact information: [facility] [address] Discharge Medication List as of 10/17/2014 18:11 [...] | | | | | | [place] [address] | | | | | | [phone] | | | | | | | [...] [address] | [place] | [phone] | | [facility] | | [address] | | | - LABORATORY | | [...] - 1.030 | [facility] | | | [place], | | | [facility] | | [...] + | [facility] | [address] | [place], [place] | [phone] | | [facility] | | [address] | | | - LABORATORY | | [...] + | [facility] | [address] | [place] | [phone] | | [facility] | | [address] | | | - LABORATORY | | [...] [address] | [place] | [phone] | | [facility] | | [address] | | | - LABORATORY | | [...] [address] | [place] | [phone] | | [facility] | | [address] | | | - LABORATORY | | [...] 2.12 (H) | 0.60 - 1.30 | [facility] | | | | | [...] mL/min/1.73m2 | [facility] | | | MONEGASQUE | RATE,ESTIMATED | | MEDICAL | | | | mL/min/1.17g7Vmfe than | | CENTER - | | [...] + | [facility] | [address] | [place] | [phone] | | [facility] | | [address] | | | - LABORATORY | | [...] ST. | [address] | [place] | [phone] | | [facility] | | [address] | | | - LABORATORY | | [...]
--- OUTSIDE RECORDS SUMMARY | ~2019-09-12 | XMS | Encounter Summary ---
Demographics + + + | Address | [address] | | | [place] [address] | + + + | Home Phone [...] Author | [facility] | | | and [place] | + + + | Organization | [facility] | | | [...] | | | | | [place] [address] | | + + + + + | Valentín Saleh | ECON | [address] | | | | | [place] [address] | | + + + + + | Roberto Carlos Lennon | LEVI | Unknown | | + + + + + Care Team Providers + +------+ + | Care Industrial Maintenance Instructor Name | Role | Phone [...] | 09/29/ | Telephone | [facility] [place] [facility] | Francois Pascal, | DME | | 2018 | | MEDICINE [place] | [address] | | | | | [address] | [address] [place], | | | | | [place] | [place] [address] | | | | | [address] | [phone] | | | | | [phone] | | | +--------+ + + + [...] Major RN - 10/02/2018 4:11 PM PDTTamara, [facility], calls requ esting [...] son called stating patient is transitioning from [facility] or to [facility]. Roberto Carlos [...] | | | | | | [place] [address] | | | | | | [phone] | | | | | | | | +--------+---------+ + + + documented as of this encounter Visit Diagnoses Not on filedocumented in this encounter"
--- OUTSIDE RECORDS SUMMARY | ~2019-09-12 | XMS | Encounter Summary ---
Demographics + + + | Address | [address] | | | [place] [address] | + + + | Home Phone [...] Author | [facility] | | | and [place] | + + + | Organization | [facility] | [...] | | | | | [place] [address] | | + + + + + | Valentín Saleh | ECON | [address] | | | | | [place] [address] | | + + + + + | Roberto Carlos Lennon | LEVI | Unknown | | + + + + + Care Team Providers + +------+ + | Care Exceptional Children'S Teacher Name | Role | Phone | [...] | Francois Tello MD | [address] | | | | | stenosis, | [address] | [place], | | | | | bilateral | [address] | [place] | | | | | Procedures | [place] | [address] | | | | | MRI | [place] | Phone: | | | | | Angiogram | [address] | [phone] | | | | | Neck w wo | Phone: | Fax: | | | | | Contrast | [phone] | [phone] | | | | | | Fax: | | | | | | | [phone] | | +--------+--------+ + + + + [...] [place], | Dx) | | | | [place] [address] | [place] [address] | | | | | [phone] | [phone] | | | | | | | [...] | 2019 | Visit | | [address] [facility] | | | | | | [place], | | | | | | [place] [address] | | | | | | [phone] | | | | | | | [...] | | was performed with axial 3-D oawo-ja-quaweb technique without | MEDICAL CENTER | | [...] | | | on the axial 3-D mdus-oa-kwahgk images due to the small size. The [...] | | was performed with axial 3-D zwtw-xg-jijjlh techniquewithout contrast and coronal | | dynamic [...] seen on the axial 3-D | | alpk-dk-whhhdtrgjorw due to the small size. The left [...] not well seen on the axial 3-D rgab-nq-iwfmdr | |images due to the small size. [...] [address] | [place] | [phone] | | [facility] | | [address] | | | - IMAGING | | | | + + + + + documented in this encounter Visit Diagnoses + + | Diagnosis | + + | Carotid stenosis, bilateral - Primary Occlusion and stenosis of multiple and | | bilateral precerebral arteries without mention of cerebral infarction | + + documented in this encounter"
--- OUTSIDE RECORDS SUMMARY | ~2019-09-12 | XMS | Encounter Summary ---
Demographics + + + | Address | [address] | | | [place] [address] | + + + | Home Phone [...] + | Author | [facility] | | | and [place] | + + + | Organization | [facility] [...] | | | | | [place] [address] | | + + + + + | Valentín Saleh | ECON | [address] | | | | | [place] [address] | | + + + + + | Roberto Carlos Lennon | LEVI | Unknown | | + + + + + Care Team Providers + +------+ + | Care Qc Lab Technician Name | Role | Phone [...] | 04/09/ | Refill | [facility] [place] | Stephenie Paul, | Medication Refill | | 2016 | | CARDIOLOGY [address] | MD [address] | | | | | [place], | [place], | | | | | [place] [address] | [place] [address] | | | | | [phone] | [phone] | | | | | | | [...] | | | | | | [place] [address] | | | | | | [phone] | | | | | | | | +--------+---------+ + + + documented as of this encounter Visit Diagnoses Not on filedocumented in this encounter"
--- OUTSIDE RECORDS SUMMARY | ~2019-09-12 | XMS | Encounter Summary ---
Demographics + + + | Address | [address] | | | [place] [address] | + + + | Home Phone [...] + | Author | [facility] | | | and [place] | + + + | Organization | [facility] | | [...] | | | | | [place] [address] | | + + + + + | Valentín Saleh | ECON | [address] | | | | | [place] [address] | | + + + + + | Roberto Carlos Lennon | LEVI | Unknown | | + + + + + Care Team Providers + +------+ + | Care Irrigation Installation Specialist Name | Role | Phone | [...] | 05/30/ | Refill | [facility] [place] [facility] | Francois Pascal, | Medication Refill | | 2014 | | MEDICINE [facility] [place] | [address] | | | | | [address]VE [place], | [address] [place], | | | | | [place] [address] | [place] [address] | | | | | [phone] | [phone] | | | | | | | [...] | | | | | | [place] [address] | | | | | | [phone] | | | | | | | | +--------+---------+ + + + documented as of this encounter Visit Diagnoses Not on filedocumented in this encounter"
--- OUTSIDE RECORDS SUMMARY | ~2019-09-12 | XMS | Encounter Summary ---
Demographics + + + | Address | [address] | | | [place] [address] | + + + | Home Phone [...] | Author | [facility] | | | and [place] | + + + | Organization | [facility] [...] | | | | | [place] [address] | | + + + + + | Valentín Saleh | ECON | [address] | | | | | [place] [address] | | + + + + + | Roberto Carlos Lennon | LEVI | Unknown | | + + + + + Care Team Providers + +------+ + | Care Predatory Animal Trapper Name | Role | Phone | + [...] [address] | | | | | [facility] [address] | [address] [facility] | | | | | [place], [place] | [address] [place] | | | | | [address] | [address] | | | | | [phone] | | | +--------+ + + + [...] | | | | | | [place] [address] | | | | | | [phone] | | | | | | | | +--------+---------+ + + + documented as of this encounter Visit Diagnoses Not on filedocumented in this encounter"
--- OUTSIDE RECORDS SUMMARY | ~2019-09-12 | XMS | Encounter Summary ---
Demographics + + + | Address | [address] | | | [place] [address] | + + + | Home Phone [...] | Author | [facility] | | | and [place] | + + + | Organization | [facility] | [...] | | | | | [place] [address] | | + + + + + | Valentín Saleh | ECON | [address] | | | | | [place] [address] | | + + + + + | Roberto Carlos Lennon | LEVI | Unknown | | + + + + + Care Team Providers + +------+ + | Care Global Upstream Marketing Manager Name | Role | Phone [...] | Francois Tello MD | [address] | | | | | (shortness | [address] | [place], | | | | | of breath) | [address] | [place] | | | | | Procedures | [place] | [address] | | | | | ECHO | [place], [place] | Phone: | | | | | Complete | [address] | [phone] | | | | | | Phone: | Fax: | | | | | | [phone] | [phone] | | | | | | Fax: | | | | | | | [phone] | | +--------+--------+ + + + + [...] + + | 11/04/ | Office | [facility] | Francois Pascal, | CKD (chronic kidney | | 2015 | Visit | [address] | [address] | disease) stage 4, | | | | AVE [place], | [address] [place], | GFR 15-29 ml/min | | | | [place] [address] | [place] [address] | (HCC) (Primary Dx); | | | | [phone] | [phone] | SOB (shortness of | | | [...] kidney disease) stage 4, GFR 15-29 ml/min ([facility]) Comprehensive Metabolic Pa gwendolyn 2. SOB (shortness [...] | Visit | | MD [address] | | | | | | [place], | | | | | | [place] [address] | | | | | | [phone] | | | | | | | [...] CLINICAL HISTORY: confusion COMPARISON: CAROTID ULTRASOUND | [facility] | | FEBRUARY 2009 FINDINGS: [employer], [...] + | [facility] | [address] | [place] | [phone] | | [facility] | | [address] | | | - IMAGING | | | | + + + + + ECHO Complete (11/25/2014 11:42 AM PDT) + + | Specimen | + + | | + + + + + | Narrative | Performed At | + + + | [facility] ECHOCARDIOGRAM REPORT | [place] | | STUDY DATE: 11/25/2014 PATIENT NAME: Alyson Lennon : | [facility] | | 1930 PCP: Francois Pascal MD | [facility] | | CLINICAL HISTORY/DIAGNOSIS: SOB, [...] | | | PhD FACC 11/25/2014 11:43 Residential Housekeeper: Rolando | | | Zilliox, RDCS, RVT, RDMS | | + + + + + + + + | Performing | Address | City/State/Zipcode | Phone Number | | Organization | | | | + + + + + | [facility] | [address] | [place] | [phone] | | [facility] | | [address] | | | - IMAGING | | | | + + + + + documented in this encounter Visit Diagnoses + + | Diagnosis | + + | CKD (chronic kidney disease) stage 4, GFR 15-29 ml/min ([facility]) - Primary Chronic kidney | | disease, Stage IV (severe) | + + | SOB (shortness of breath) Shortness of breath | + + | Confusion Unspecified psychosis | + + documented in this encounter
--- OUTSIDE RECORDS SUMMARY | ~2019-09-12 | XMS | Encounter Summary ---
Demographics + + + | Address | [address] | | | [place] [address] | + + + | Home Phone [...] | Author | [facility] | | | and [place] | + + + | Organization | [facility] | [...] | | | | | [place] [address] | | + + + + + | Valentín Saleh | ECON | [address] | | | | | [place] [address] | | + + + + + | Roberto Carlos Lennon | LEVI | Jeyson | | + + + + + Care Team Providers + +------+ + | Care Career Technical Education Instructor Name | Role | Phone | + +------+ + PCP | Unavailable | + +------+ + Encounter Details +--------+ + + + + | Date | Type | Department | Care Team | Description | +--------+ + + + + | 11/02/ | Hospital | [facility] | | | | 2005 | Encounter | [facility] LAB[facility] | | | | | | [address] | | | | | | [place] | | | | | | [address] | | | | | | [phone] | | | +--------+ + + + [...] | | | | | | [place] [address] | | | | | | [phone] | | | | | | | | +--------+---------+ + + + documented as of this encounter Visit Diagnoses Not on filedocumented in this encounter"
--- OUTSIDE RECORDS SUMMARY | ~2019-09-12 | XMS | Encounter Summary ---
Demographics + + + | Address | [address] | | | [place] [address] | + + + | Home Phone [...] Author | [facility] | | | and [place] | + + + | Organization | [facility] | [...] | | | | | [place] [address] | | + + + + + | Valentín Saleh | ECON | [address] | | | | | [place] [address] | | + + + + + | Roberto Carlos Lennon | LEVI | Unknown | | + + + + + Care Team Providers + +------+ + | Care Acoustical Logging Engineer Name | Role | Phone | [...] | 12/11/ | Refill | [facility] [place] [facility] | Francois Pascal, | Medication Refill | | 2014 | | MEDICINE [place] | [address] | | | | | [address] | [address] [place], | | | | | [place] | [place] [address] | | | | | [address] | [phone] | | | | | [phone] | | | +--------+--------+ + + + [...] 30units before meals three times daily. elephone [facility] RN - 12/13/2014 4:35 PM [...] | | | | | | [place] [address] | | | | | | [phone] | | | | | | | | +--------+---------+ + + + documented as of this encounter Visit Diagnoses Not on filedocumented in this encounter"
--- OUTSIDE RECORDS SUMMARY | ~2019-09-12 | XMS | Encounter Summary ---
Demographics + + + | Address | [address] | | | [place] [address] | + + + | Home Phone [...] + | Author | [facility] | | | and [place] | + + + | Organization | [facility] | [...] | | | | | [place] [address] | | + + + + + | Valentín Saleh | ECON | [address] | | | | | [place] [address] | | + + + + + | Roberto Carlos Lennon | LEVI | Unknown | | + + + + + Care Team Providers + +------+ + | Care Sewer Contractor Name | Role | Phone | + [...] + + | 02/23/ | Telephone | [facility] | Francois Pascal, | Appointment | | 2018 | | MEDICINE [place] | [address] | | | | | [address] | [address] [place], | | | | | [place] | [place] [address] | | | | | [address] | [phone] | | | | | [phone] | | | +--------+ + + + [...] stated alondra cabrera is in an adult fci but did not have the number. elephone [...] | | | | | | [place] [address] | | | | | | [phone] | | | | | | | | +--------+---------+ + + + documented as of this encounter Visit Diagnoses Not on filedocumented in this encounter"
--- OUTSIDE RECORDS SUMMARY | ~2019-09-12 | XMS | Encounter Summary ---
Demographics + + + | Address | [address] | | | [place] [address] | + + + | Home Phone [...] [facility] | | | and [place] | + + + | Organization | [facility] [...] | | | | | [place] [address] | | + + + + + | Valentín Saleh | ECON | [address] | | | | | [place] [address] | | + + + + + | Roberto Carlos Lennon | LEVI | Unknown | | + + + + + Care Team Providers + +------+ + | Care Position Classification Specialist Name | Role | Phone | [...] Refill | | 2014 | | MEDICINE [place] | [address] | | | | | [address] | [address] [place], | | | | | [place] | [place] [address] | | | | | [address] | [phone] | | | | | [phone] | | | +--------+--------+ + + + [...] | | | | | | [place] [address] | | | | | | [phone] | | | | | | | | +--------+---------+ + + + documented as of this encounter Visit Diagnoses Not on filedocumented in this encounter"
--- OUTSIDE RECORDS SUMMARY | ~2019-09-12 | XMS | Encounter Summary ---
Demographics + + + | Address | [address] | | | [place] [address] | + + + | Home Phone [...] Author | [facility] | | | and [place] | + + + | Organization | [facility] | | | [...] | | | | | [place] [address] | | + + + + + | Valentín Saleh | ECON | [address] | | | | | [place] [address] | | + + + + + | Roberto Carlos Lennon | LEVI | Unknown | | + + + + + Care Team Providers + +------+ + | Care Showroom Consultant Name | Role | Phone | [...] + | 12/19/ | Refill | [facility] | Francois Pascal, | Medication Refill | | 2011 | | [facility] | [address] | | | | | [address] | [address] [place], | | | | | [place] | [place] [address] | | | | | [address] | [phone] | | | | | [phone] | | | +--------+--------+ + + + [...] | | | | | | [place] [address] | | | | | | [phone] | | | | | | | | +--------+---------+ + + + documented as of this encounter Visit Diagnoses Not on filedocumented in this encounter"
--- OUTSIDE RECORDS SUMMARY | ~2019-09-12 | XMS | Encounter Summary ---
Demographics + + + | Address | [address] | | | [place] [address] | + + + | Home Phone [...] + | Author | [facility] | | | and [place] | + + + | Organization | [facility] | [...] | | | | | [place] [address] | | + + + + + | Valentín Saleh | ECON | [address] | | | | | [place] [address] | | + + + + + | Roberto Carlos Lennon | LEVI | Unknown | | + + + + + Care Team Providers + +------+ + | Care Silverware Buffer Name | Role | Phone | [...] | [facility] [place] [facility] | Francois Pasacl, | Medication Refill | | 2018 | | [facility] | [address] | | | | | [address] | [address] [place], | | | | | [place] | [place] [address] | | | | | [address] | [phone] | | | | | [phone] | | | +--------+--------+ + + + [...] Next Visit: No future appointment Bridget from [facility] called stating [employer] never received request, ple [...] | | | | | | [place] [address] | | | | | | [phone] | | | | | | | | +--------+---------+ + + + documented as of this encounter Visit Diagnoses Not on filedocumented in this encounter"
--- OUTSIDE RECORDS SUMMARY | ~2019-09-12 | XMS | Encounter Summary ---
Demographics + + + | Address | [address] | | | [place] [address] | + + + | Home Phone [...] + | Author | [facility] | | | and [place] | + + + | Organization | [facility] [...] | | | | | [place] [address] | | + + + + + | Valentín Saleh | ECON | [address] | | | | | [place] [address] | | + + + + + | Roberto Carlos Lennon | LEVI | Unknown | | + + + + + Care Team Providers + +------+ + | Care Asphalt Tamper Name | Role | Phone | + [...] + | 03/21/ | Office | [facility] | Stephenie Paul, | Coronary artery | | 2016 | Visit | CARDIOLOGY [address] | [address] [facility] | disease involving | | | | [place], | [place], | [place] coronary | | | | [place] [address] | [place] [address] | artery of [place] | | | | [phone] | [phone] | heart without angina | | | [...] kg (152 lb 9.6 oz) | B [place] 27.90 kg/m2 Physical Exam Constitutional: She appears [...] Patient is in a class I of [place] [employer] functional class. Physical exam shows [...] year. Electronically signed by: Stephenie Paul MD [facility] 03/21/2015 Portions of this chart may have been created with [employer] voice recognition software. Occasi onal wrong-word or [...] | 2019 | Visit | | [address] [facility] | | | | | | [place], | | | | | | [place] [address] | | | | | | [phone] | | | | | | | [...] the | | | | PST | [place] coronary | results section. | | | | | artery of [place] | | | | | | heart [...] MD | | | | | | ([id number]) on 03/21/2015 | | | | | [...] + + | Coronary artery disease involving [place] coronary artery of [place] heart without | | angina pectoris - Primary | + + | Essential hypertension Unspecified essential hypertension | + + documented in this encounter
--- OUTSIDE RECORDS SUMMARY | ~2019-09-12 | XMS | Encounter Summary ---
Demographics + + + | Address | [address] | | | [place] [address] | + + + | Home Phone [...] | Author | [facility] | | | and Clarkeana | + + + | Organization | [facility] | [...] | | | | | [place] [address] | | + + + + + | Valentín Saleh | ECON | [address] | | | | | [place] [address] | | + + + + + | Roberto Carlos Lennon | LEVI | Unknown | | + + + + + Care Team Providers + +------+ + | Care Wall Insulation Sprayer Name | Role | Phone | + [...] sis of | [address] | [address] | | | | | [place] | [place] | [place], | | | | | coronary | [place], [place] | [place] [address] | | | | | artery of | [address] | Phone: | | | | | kaguy[place] heart | Phone: | [phone] | | | | | without | [phone] | Fax: | | | | | angina | Fax: | [phone] | | | | | pectoris | [phone] | | | | | | Procedures [...] | (MORASCH/REFERRAL | | | | [facility]IC[facility] [place] | [address] [place] [address], | REQUEST/ DOS | | | | [address] | [place] [address] | 05/03/19) | | | | [address] [place] [address], | [phone] | | | | | [place] [address] | | | | | | [phone] | | | +--------+ + + + [...] and signed. elephone Encounter - Kacy Delaney, Cryptoanalysis Teacher - 04/10/2019 3:04 PM PSTReferral larry lynn review and sign if appropriate ele phone Encounter - Lisa Garay - 04/10/2019 2:39 PM PSTPatient is [facility] Corado Please create updated referral Dx: Coronary artery disease involving [place] coronary artery of [place] heart without angina pe ctoris I25.10 documented [...] | | | | | | [place] [address] | | | | | | [phone] | | | | | | | [...] to Cardiology | Referral | e | kaguy[place] coronary | | | | | | artery of [place] | | | | | | heart without angina | | | | | | pectoris | | + + +--------+ + + documented as of this encounter Visit Diagnoses + + | Diagnosis | + + | Atherosclerosis of [place]uy[place] coronary artery of [place]aguy[place] heart without angina pectoris - | | Primary | + + documented in this encounter"
--- OUTSIDE RECORDS SUMMARY | ~2019-09-12 | XMS | Encounter Summary ---
Demographics + + + | Address | [address] | | | [place] [address] | + + + | Home Phone [...] Author | [facility] | | | and Clarkeana | + + + | Organization | [facility] [...] | | | | | [place] [address] | | + + + + + | Valentín Saleh | ECON | [address] | | | | | [place] [address] | | + + + + + | Roberto Carlos Lennon | LEVI | Unknown | | + + + + + Care Team Providers + +------+ + | Care Digital Marketing Specialist Name | Role | Phone | [...] condition with stage | | | | [place] [address] | [place] [address] | 3 chronic kidney | | | | [phone] | [phone] | disease, with | | | | [...] | | | | | | [place] [address] | | | | | | [phone] | | | | | | | [...]
--- OUTSIDE RECORDS SUMMARY | ~2019-09-12 | XMS | Encounter Summary ---
Demographics + + + | Address | [address] | | | [place] [address] | + + + | Home Phone [...] | [facility] | | | and Clarkeana | + + + | Organization | [facility] | | [...] | | | | | [place] [address] | | + + + + + | Valentín Saleh | ECON | [address] | | | | | [place] [address] | | + + + + + | Roberto Carlos Lennon | LEVI | Unknown | | + + + + + Care Team Providers + +------+ + | Care Flight Service Agent Name | Role | Phone | [...] + + | 07/09/ | Office | [facility] | Glenn Miramontes | Chronic pain of left | | 2016 | Visit | PHYSIATRY [address] | MD Maurice [address] | ankle (Primary Dx); | | | | [address] | [address] [place] | Post-traumatic | | | | [place] | [address] | osteoarthritis of | | | | [address] | | left ankle | | | | [phone] | | | +--------+---------+ + + + [...] of the procedure you must provide a mechanic welder truck driver to take you home. 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 INTEGUMENTARY/SKIN: No lump in breasts, no [...] has no apparent deficits with short or mcc memory. She has appropriate fund of knowledge [...] | | | | | | [place] [address] | | | | | | [phone] | | | | | | | | +--------+---------+ + + + documented as of this encounter Results [place] Major Joint Injection Left (07/15/2015 4:10 PM PDT) + + | Specimen | + + | | + + + + + | Narrative | Performed At | + + + | 07/15/2015 LEFT INTRAARTICULAR ANKLE INJECTION CLINICAL HISTORY: | [facility] | | CHRONIC LEFT ANKLE PAIN AND POST-TRAUMATIC ARTHRITIS Alyson Leyva | [facility] | | Saji presents to the fluoroscopy suite for a | [facility] | | fluoroscopically-guided left intraarticular ankle injection [...] | [facility] | [address] | [place] | [phone] | | [facility] | | [address] | | | - IMAGING | | | | + + + + + documented in this encounter Visit Diagnoses + + | Diagnosis | + + | Chronic pain of left ankle - Primary | + + | Post-traumatic osteoarthritis of left ankle | + + documented in this encounter
--- OUTSIDE RECORDS SUMMARY | ~2019-09-12 | XMS | Encounter Summary ---
Demographics + + + | Address | [address] | | | [place] [address] | + + + | Home Phone [...] Author | [facility] | | | and Clarkeana | + + + | Organization | [facility] | | [...] | | | | | [place] [address] | | + + + + + | Valentín Saleh | ECON | [address] | | | | | [place] [address] | | + + + + + | Roberto Carlos Lennon | LEVI | [place]yson | | + + + + + Care Team Providers + +------+ + | Care Software Engineer Mobile Name | Role | Phone | + +------+ + PCP | Unavailable | + +------+ + Encounter Details +--------+ + + + + | Date | Type | Department | Care Team | Description | +--------+ + + + + | 11/28/ | Hospital | [facility] | Francois Pascal, | | | 2008 | Encounter | MED CTR LABORATORY | [address] | | | | | [address] [place] | [address], | | | | | [place] | [place] [address] | | | | | [address] | [phone] | | | | | [phone] | | | +--------+ + + + [...] | | | | | | [place] [address] | | | | | | [phone] | | | | | | | | +--------+---------+ + + + documented as of this encounter Visit Diagnoses Not on filedocumented in this encounter"
--- OUTSIDE RECORDS SUMMARY | ~2019-09-12 | XMS | Encounter Summary ---
Demographics + + + | Address | [address] | | | [place] [address] | + + + | Home Phone [...] Author | [facility] | | | and Clarkeana | + + + | Organization | [facility] [...] | | | | | [place] [address] | | + + + + + | Valentín Saleh | ECON | [address] | | | | | [place] [address] | | + + + + + | Roberto Carlos Lennon | LEVI | Unknown | | + + + + + Care Team Providers + +------+ + | Care Captain/Check Airman Name | Role | Phone | + [...] | | | osteoarthrit | [place] | [facility] | | | | | is of left | [place] | [address] | | | | | ankle | [address] | [address] | | | | | | Phone: | ANTOINE | | | | | | [phone] | [place], [place] | | | | | | Fax: | [address] | | | | | | [phone] | Phone: | | | | | | | [phone] | | | | | | | Fax: | | | | | | | [phone] | +--------+ + + + + + Reason for Visit + + + | Reason | Comments | + + + | Diabetes | | + + + | Hypertension | | + + + Encounter Details +--------+---------+ + + + | Date | Type | Department | Care Team | Description | +--------+---------+ + + + | 03/21/ | Office | [facility] | Francois Pascal, | Post-traumatic | | 2015 | Visit | MEDICINE [address] | [address] | osteoarthritis of | | | | AVE [place], | [address] [place], | left ankle ([place] | | | | [place] [address] | [place] [address] | Dx); HYPERTENSION | | | | [phone] | [phone] | NEC; Hyperlipidemia; | | | | [...] still feeling slightly sore though. 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 Carmelo blunt follows with Dr Bolton for [...] and 2 brothers: CAD, Lemhi's Disease to [place] - with 2 Healthy Children No kidney [...] | | | | | | [place] [address] | | | | | | [phone] | | | | | | | [...] 1.030 | [facility] | | | [place], | | | [facility] | [...] Urine | | 1.0 E.U./dL | [facility] | | | | | | MEDICAL [...] | + + + + + | [facility] [facility] | [address] | [place] | [phone] | | [facility] | | [address] | | | - LABORATORY | | [...] + | [facility] | [address] | [place] | [phone] | | [facility] | | [address] | | | - LABORATORY | | [...] [address] | [place] | [phone] | | [facility] | | [address] | | | - LABORATORY | | [...] [address] | [place] | [phone] | | [facility] | | [address] | | | - LABORATORY | | [...] 1.39 (H) | 0.60 - 1.30 | [facility] | | | | | mg/dL | [facility] | | | | | | MEDICAL | | | | | | CENTER - | | | | | | LABORATORY | | + + + + + + | eGFR if not | 36 (L)Comment: | >=60 | [facility] | | | | GLOMERULAR FILTRATION | mL/min/1.73m2 | [facility] | | | BULGARIAN | RATE,ESTIMATED | | MEDICAL | | | | mL/min/1.11p5Xbpg than | | CENTER - | | [...] ST. | [address] | [place] | [phone] | | [facility] | | [address] | | | - LABORATORY | | [...]
--- OUTSIDE RECORDS SUMMARY | ~2019-09-12 | XMS | Encounter Summary ---
Demographics + + + | Address | [address] | | | [place] [address] | + + + | Home Phone [...] + | Author | [facility] | | | and Calrkeana | + + + | Organization | [facility] | | [...] | | | | | [place] [address] | | + + + + + | Valentín Saleh | ECON | [address] | | | | | [place] [address] | | + + + + + | Roberto Carlos Lennon | LEVI | [place] | | + + + + + Care Team Providers + +------+ + | Care Subwarehouse Supervisor Name | Role | Phone | + +------+ + PCP | Unavailable | + +------+ + Encounter Details +--------+ + + + + | Date | Type | Department | Care Team | Description | +--------+ + + + + | 01/20/ | Hospital | [facility] | Francois Pascal, | | | 2009 | Encounter | MED CTR LABORATORY | [address] | | | | | [address] [place] | [address] [place] [address], | | | | | [place] | [place] [address] | | | | | [address] | [phone] | | | | | [phone] | | | +--------+ + + + [...] | | | | | | [place] [address] | | | | | | [phone] | | | | | | | | +--------+---------+ + + + documented as of this encounter Visit Diagnoses Not on filedocumented in this encounter"
--- OUTSIDE RECORDS SUMMARY | ~2019-09-12 | XMS | Encounter Summary ---
Demographics + + + | Address | [address] | | | [place] [address] | + + + | Home Phone [...] | Author | [facility] | | | and Clarkeana | + + + | Organization | [facility] [...] | | | | | [place] [address] | | + + + + + | Valentín Saleh | ECON | [address] | | | | | [place] [address] | | + + + + + | Roberto Carlos Lennon | LEVI | Unknown | | + + + + + Care Team Providers + +------+ + | Care Scientific Editor Name | Role | Phone | [...] + + | 11/14/ | Emergency | [facility] | David Cross, | Adverse effects of | | 2014 | | MED CTR EMERGENCY | [address] | medication, initial | | | | CENTER [address] | [place] | encounter (nausea | | | | [place] | [address] | from antibiotic) | | | | [address] | | (Primary Dx); | | | | [phone] | | Dehydration; Slow | | | [...] be sent through Care Everywhere.CONSTIPATION (Frank JESUS) (ZIMBABWEAN)documented in this encounter Medications at Time of [...] might be different fr om the original. [facility] Alyson Lennon Emergency Department Encounter Note [address] [place] [address] PCP:Francois Pascal MD [phone] CHIEF COMPLAINT: Chief [...] 2 (diabetes mellitus, type 2) ([facility]) 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 Myocardial infarction ([facility]) (1994&1996) CAR with Hx of Myocardial infarction Other abnormal clinical finding Verebral Compression Fractures Glossitis CAD (coronary artery disease) CHF (congestive heart failure) ([facility]) Arthritis Old [place] (myocardial infarction) Carotid stenosis H/O ventricular septal [...] Severe Contraindications. Consult references such as [employer] for further information. metoprolol succinate (TOPROL-XL) 200 [...] Other (See Comment) Other family history of Martin's Disease Heart disease Sister Kidney disease Neg Hx History Social History Marital Status: Spouse Name: Sigrid Number of Children: 2 Years of Education: N/A Occupational History Social History Main Topics Smoking status: Never Smoker Smokeless tobacco: Never Used Alcohol Use: No Drug Use: No Sexual Activity: None Other Topics Concern None Social History Narrative Born in [facility] for 47 [...] Clear Clear PH UA 5.5 5.0-8.0 Specific [place] 1.025 1.001-1.030 PROTEIN UA Negative Negative BLOOD [...] benign. She had a CT scan wit ndn the last several days and I don't [...] Family Medicine Contact information: [address] [facility] [address] Discharge Medication List as of 11/14/2014 17:57 START taking these medications Details ondansetron (ZOFRAN ODT) 8 mg disintegrating tablet TAKE ONE TABLET AT ONSET OF NAUSEA/VOMI TING ASSOCIATED WITH MIGRAINEDisp-12 tablet, R-0, Normal polyethylene glycol (MIRALAX) powder Take 1 diluted capful by mouth 3 times daily (before m eals).Disp-255 g, R-0, Normal Portions of this chart may have been created with [employer] voice recognition software. Occasi onal wrong-word or [...] | | | | | | [place] [address] | | | | | | [phone] | | | | | | | [...] - 1.030 | [facility] | | | [place], | | | [facility] | | [...] ST. | [address] | [place], [place] | [phone] | | [facility] | | [address] | | | - LABORATORY | | [...] + | [facility] | [address] | [place] | [phone] | | [facility] | | [address] | | | - LABORATORY | | [...] [address] | [place] | [phone] | | [facility] | | [address] | | | - LABORATORY | | [...] + | [facility] | [address] | [place] | [phone] | | [facility] | | [address] | | | - LABORATORY | | [...] mL/min/1.73m2 | [facility] | | | [place] | RATE,ESTIMATED | | MEDICAL | | | | mL/min/1.96e3Rrqj than | | CENTER - | | [...] | | Total | | | [facility] | | [...] [address] | [place] | [phone] | | [facility] | | [address] | | | - LABORATORY | | [...] | | Eosinophils | | K/uL | [facility] | | | | | | MEDICAL | | | | | | CENTER - | | | | | | LABORATORY | | + + + + + + | Absolute | 0.10 | 0.00 - 0.10 | [facility] | | | Basophils | | K/uL | [facility] | | | | | | [...] [address] | [place] | [phone] | | [facility] | | [address] | | | - LABORATORY | | [...] 4:09 | | | | | ONCE, [facility] 11/14/14 at 1550, For 1 | [...]
--- OUTSIDE RECORDS SUMMARY | ~2019-09-12 | XMS | Encounter Summary ---
Demographics + + + | Address | [address] | | | [place] [address] | + + + | Home Phone [...] | Author | [facility] | | | and Clarkeana | + + + | Organization | [facility] [...] | | | | | [place] [address] | | + + + + + | Valentín Saleh | ECON | [address] | | | | | [place] [address] | | + + + + + | Roberto Carlos Lennon | LEVI | Unknown | | + + + + + Care Team Providers + +------+ + | Care Embroiderer Hand Name | Role | Phone | [...] + + | 11/21/ | Telephone | [facility] | Francois Pascal, | Appointment (Lab | | 2012 | | [facility] | [address] | results) | | | | [address] | [address] [place] [address], | | | | | [place] | [place] [address] | | | | | [address] | [phone] | | | | | [phone] | | | +--------+ + + + [...] | | | | | | [place] [address] | | | | | | [phone] | | | | | | | | +--------+---------+ + + + documented as of this encounter Visit Diagnoses Not on filedocumented in this encounter"
--- OUTSIDE RECORDS SUMMARY | ~2019-09-12 | XMS | Encounter Summary ---
Demographics + + + | Address | [address] | | | [place] [address] | + + + | Home Phone [...] | Author | [facility] | | | and Clarkeana | + + + | Organization | [facility] | [...] | | | | | [place] [address] | | + + + + + | Valentín Saleh | ECON | [address] | | | | | [place] [address] | | + + + + + | Roberto Carlos Lennon | LEVI | [place] | | + + + + + Care Team Providers + +------+ + | Care School Crossing Guard Name | Role | Phone | + +------+ + PCP | Unavailable | + +------+ + Encounter Details +--------+ + + + + | Date | Type | Department | Care Team | Description | +--------+ + + + + | 02/17/ | Hospital | [facility] | | | | 2006 | Encounter | MED CTR XRAY [address] | | | | | | [address] [place] | | | | | | [place] [address] | | | | | | [phone] | | | +--------+ + + + [...] | | | | | | [place] [address] | | | | | | [phone] | | | | | | | | +--------+---------+ + + + documented as of this encounter Visit Diagnoses Not on filedocumented in this encounter"
--- OUTSIDE RECORDS SUMMARY | ~2019-09-12 | XMS | Encounter Summary ---
Demographics + + + | Address | [address] | | | [place] [address] | + + + | Home Phone [...] Author | [facility] | | | and Clarkeana | + + + | Organization | [facility] | [...] | | | | | [place] [address] | | + + + + + | Valentín Saleh | ECON | [address] | | | | | [place] [address] | | + + + + + | Roberto Carlos Lennon | LEVI | Unknown | | + + + + + Care Team Providers + +------+ + | Care Parking Lot Chauffeur Name | Role | Phone | + +------+ + | Francois Pascal MD | PCP | | + +------+ + Encounter Details +--------+ + + + + | Date | Type | Department | Care Team | Description | +--------+ + + + + | 08/19/ | Orders Only | [facility] | Misael Haynes, | Type 2 diabetes | | 2017 | | LABORATORY SERVICE | MD [address] | mellitus with | | | | [address] | [place] | complication, with | | | | [place] | [address] | long-term current | | | | [address] | | use of insulin | | | | [phone] | | (HCC); CHRONIC | | | [...] | | | | | | [place] [address] | | | | | | [phone] | | | | | | | [...] 1.030 | [facility] | | | [place], | | | [facility] | | [...] [address] | [place] | [phone] | | [facility] | | [address] | | | - LABORATORY | | [...] | 0.93 | 0.60 - 1.30 | [facility] | | | | | mg/dL | [facility] | | | | | | MEDICAL | | | | | | CENTER - | | | | | | LABORATORY | | + + + + + + | eGFR if not | 57 (L)Comment: | >=60 | [facility] | | | | GLOMERULAR FILTRATION | mL/min/1.73m2 | [facility] | | | [place] | RATE,ESTIMATED | | MEDICAL | | | | mL/min/1.89w9Pcrv than | | CENTER - | | [...] [address] | [place] | [phone] | | [facility] | | [address] | | | - LABORATORY | | [...] + | [facility] | [address] | [place] | [phone] | | [facility] | | [address] | | | - LABORATORY | | [...]
--- OUTSIDE RECORDS SUMMARY | ~2019-09-12 | XMS | Encounter Summary ---
Demographics + + + | Address | [address] | | | [place] [address] | + + + | Home Phone [...] Author | [facility] | | | and Clarkeana | + + + | Organization | [facility] [...] | | | | | [place] [address] | | + + + + + | Valentín Saleh | ECON | [address] | | | | | [place] [address] | | + + + + + | Roberto Carlos Lennon | LEVI | Unknown | | + + + + + Care Team Providers + +------+ + | Care Blade Bender Furnace Tender Name | Role | Phone [...] | | Gait | [place] | [address] Phone: | | | | | instability | [address] | [phone] | | | | | Procedures | Phone: | Fax: | | | | | [facility] | [phone] | [phone] | | | | | TREATMENT 45 | Fax: | | | | | | | [phone] | | +--------+--------+ + + + + Encounter Details +--------+---------+ + + + | Date | Type | Department | Care Team | Description | +--------+---------+ + + + | 03/12/ | Office | [facility] | Francois Pascal, | Impaired functional | | 2016 | Visit | MED CTR THERAPY PT | [address] | mobility, balance, | | | | OP [address] | [address] [place], | gait, and endurance | | | | [place], [place] | [place] [address] | (Primary Dx); | | | | [address] | [phone] | Posture imbalance; | | | | [phone] | | Left ankle pain | | | | | Kely Quinn B, PT | | | | | | [address] | | | | | | [place] | | | | | | [address] | | | | | | | [...] be different from t he original. [facility] CTR THERAPY PT OP [address] [place] [address] Physical Therapy Daily Treatment Note Date: 03/12/2015 Patient Information Patient Name: Alyson Lennon Date of : 1930 Age: 84 y.o. Encounter Diagnoses Code Name Primary? Z74.09 Impaired functional mobility, balance, gait, and endurance Yes R29.3 Posture imbalance M25.572 Left ankle pain Date of Onset: Referring Provider: Francois Pascal MD Rehab Precautions Office Visit from 12/24/2014 in [facility] CTR THERAPY PT OP Rehab [...] improve safety at home and in the [facility]. Plan: Continue with manual therapy, LE strengthening, [...] | 2019 | Visit | | [address] | | | | | | [place], | | | | | | [place] [address] | | | | | | [phone] | | | | | | | [...]
--- OUTSIDE RECORDS SUMMARY | ~2019-09-12 | XMS | Encounter Summary ---
Demographics + + + | Address | [address] | | | [place] [address] | + + + | Home Phone [...] | | | | | [place] [address] | | + + + + + | Valentín Saleh | ECON | [address] | | | | | [place] [address] | | + + + + + | Roberto Carlos Lennon | LEVI | Unknown | | + + + + + Care Team Providers + +------+ + | Care Claims Coordinator Name | Role | Phone | [...] Refill | | 2015 | | MEDICINE [facility] [place] | [address] | | | | | AVE [place], | [address] [place], | | | | | [place] [address] | [place] [address] | | | | | [phone] | [phone] | | | | | | | [...] | | | | | | [place] [address] | | | | | | [phone] | | | | | | | | +--------+---------+ + + + documented as of this encounter Visit Diagnoses Not on filedocumented in this encounter"
--- OUTSIDE RECORDS SUMMARY | ~2019-09-12 | XMS | Encounter Summary ---
Demographics + + + | Address | [address] | | | [place] [address] | + + + | Home Phone [...] | Author | [facility] | | | and Clarkeana | + + + | Organization | [facility] | [...] | | | | | [place] [address] | | + + + + + | Valentín Saleh | ECON | [address] | | | | | [place] [address] | | + + + + + | Roberto Carlos Lennon | LEVI | Unknown | | + + + + + Care Team Providers + +------+ + | Care Roofer Metal Name | Role | Phone | + [...] + + | 05/13/ | Telephone | [facility] | Stephenie Paul, | Appointment | | 2019 | | CARDIOLOGY [address] | [address] | | | | | [place], | [place], | | | | | [place] [address] | [place] [address] | | | | | [phone] | [phone] | | | | | | | [...] | | | | | | [place] [address] | | | | | | [phone] | | | | | | | | +--------+---------+ + + + documented as of this encounter Visit Diagnoses Not on filedocumented in this encounter"
--- OUTSIDE RECORDS SUMMARY | ~2019-09-12 | XMS | Encounter Summary ---
Demographics + + + | Address | [address] | | | [place] [address] | + + + | Home Phone [...] | Author | [facility] | | | and Clarkeana | + + + | Organization | [facility] [...] | | | | | [place] [address] | | + + + + + | Valentín Saleh | ECON | [address] | | | | | [place] [address] | | + + + + + | Roberto Carlos Lennon | LEVI | [place] | | + + + + + Care Team Providers + +------+ + | Care Wine Pasteurizer Name | Role | Phone | + +------+ + PCP | Unavailable | + +------+ + Encounter Details +--------+ + + + + | Date | Type | Department | Care Team | Description | +--------+ + + + + | 09/20/ | Hospital | [facility] | | | | 2000 | Encounter | MED CTR LABORATORY | | | | | | [address] | | | | | | [place] | | | | | | [address] | | | | | | [phone] | | | +--------+ + + + [...] | | | | | | [place] [address] | | | | | | [phone] | | | | | | | | +--------+---------+ + + + documented as of this encounter Visit Diagnoses Not on filedocumented in this encounter"
--- OUTSIDE RECORDS SUMMARY | ~2019-09-12 | XMS | Encounter Summary ---
Demographics + + + | Address | [address] | | | [place] [address] | + + + | Home Phone [...] | Author | [facility] | | | and Clarkeana | + + + | Organization | [facility] [...] | | | | | [place] [address] | | + + + + + | Valentín Saleh | ECON | [address] | | | | | [place] [address] | | + + + + + | Roberto Carlos Lennon | LEVI | Unknown | | + + + + + Care Team Providers + +------+ + | Care Graphic User Interface Designer Name | Role | Phone | [...] 2016 | | NEPHROLOGY [address] | [address] | DISEASE STAGE III | | | | [address] | [address] [facility] | (MODERATE) (Primary | | | | [place], [place] | [address] [place], [place] | Dx) | | | | [address] | [address] | | | | | [phone] | | | +--------+ + + + [...] Humphries RN - 12/29/2015 10:20 AM PDT01/22/16 [facility] documented in this encounter Plan of Treatment +--------+---------+ + + + | Date | Type | Specialty | Care Team | Description | +--------+---------+ + + + | 12/06/ | Office | Cardiology | Stephenie Paul, | | | 2019 | Visit | | MD Bob Sheehan | | | | | | [place], | | | | | | [place] [address] | | | | | | [phone] | | | | | | | [...] [address] | [place] | [phone] | | [facility] | | [address] | | | - LABORATORY | | [...] [address] | [place] | [phone] | | [facility] | | [address] | | | - LABORATORY | | [...] [facility] | | | DANISH | | | MEDICAL | | | [...] [address] | [place] | [phone] | | [facility] | | [address] | | | - LABORATORY | | | | + + + + + documented in this encounter Visit Diagnoses + + | Diagnosis | + + | CHRONIC KIDNEY DISEASE STAGE III (MODERATE) - Primary Chronic kidney disease, Stage | | III (moderate) | + + documented in this encounter"
--- OUTSIDE RECORDS SUMMARY | ~2019-09-12 | XMS | Encounter Summary ---
Demographics + + + | Address | [address] | | | [place] [address] | + + + | Home Phone [...] + | Author | [facility] | | | and Clarkeana | + + + | Organization | [facility] | [...] | | | | | [place] [address] | | + + + + + | Valentín Saleh | ECON | [address] | | | | | [place] [address] | | + + + + + | Roberto Carlos Lennon | LEVI | [place] | | + + + + + Care Team Providers + +------+ + | Care Diesel Crane Operator Name | Role | Phone | + +------+ + PCP | Unavailable | + +------+ + Encounter Details +--------+ + + + + | Date | Type | Department | Care Team | Description | +--------+ + + + + | 03/03/ | Hospital | [facility] | Roberto Carlos Tello, | | | 1992 | Encounter | MED CTR XRAY [address] | [address] [facility] | | | | | [address] | [place] | | | | | [place] [address] | [address] | | | | | [phone] | | | +--------+ + + + [...] | | | | | | [place] [address] | | | | | | [phone] | | | | | | | | +--------+---------+ + + + documented as of this encounter Visit Diagnoses Not on filedocumented in this encounter"
--- OUTSIDE RECORDS SUMMARY | ~2019-09-12 | XMS | Encounter Summary ---
Demographics + + + | Address | [address] | | | [place] [address] | + + + | Home Phone [...] Author | [facility] | | | and Clarkeana | + + + | Organization | [facility] | [...] | | | | | [place] [address] | | + + + + + | Valentín Saleh | ECON | [address] | | | | | [place] [address] | | + + + + + | Roberto Carlos Lennon | LEVI | Unknown | | + + + + + Care Team Providers + +------+ + | Care Manager Shift Name | Role | Phone | + +------+ + | Francois Pascal MD | PCP | | + +------+ + Encounter Details +--------+ + + + + | Date | Type | Department | Care Team | Description | +--------+ + + + + | 04/01/ | Hospital | [facility] | Fackenthall, | CHRONIC KIDNEY | | 2017 | Encounter | MED CTR LABORATORY | [address] | DISEASE STAGE III | | | | [address] [place] | [address] [facility] | (MODERATE) | | | | [place] | [address] [place] | | | | | [address] | [address] | | | | | [phone] | | | +--------+ + + + [...] | | 0 | | | | Hsjvgin-Cwmsgaibw-Tn | mouth Daily. | | | | [...] | 2020 | Visit | | [address] [facility] | | | | | | [place], | | | | | | [place] [address] | | | | | | [phone] | | | | | | | [...] [address] | [place] | [phone] | | [facility] | | [address] | | | - LABORATORY | | [...] + | [facility] | [address] | [place] | [phone] | | [facility] | | [address] | | | - LABORATORY | | [...] mL/min/1.73m2 | [facility] | | | ENGLISH | | | MEDICAL | | | [...] 3.4 | 3.2 - 5.0 g/dL | [facility] | | | | | | ST. [...] + | [facility] | [address] | [place] | [phone] | | [facility] | | [address] | | | - LABORATORY | | | | + + + + + documented in this encounter Visit Diagnoses + + | Diagnosis | + + | CHRONIC KIDNEY DISEASE STAGE III (MODERATE) Chronic kidney disease, Stage III | | (moderate) | + + documented in this encounter"
--- OUTSIDE RECORDS SUMMARY | ~2019-09-12 | XMS | Encounter Summary ---
Demographics + + + | Address | [address] | | | [place] [address] | + + + | Home Phone [...] Author | [facility] | | | and Clarkeana | + + + | Organization | [facility] | [...] | | | | | [place] [address] | | + + + + + | Valentín Saleh | ECON | [address] | | | | | [place] [address] | | + + + + + | Roberto Carlos Lennon | LEVI | Unknown | | + + + + + Care Team Providers + +------+ + | Care Dough Mixer Helper Name | Role | Phone | + +------+ + | Francois Pascal MD | PCP | | + +------+ + Reason for Visit + +--------+ + | Reason | Onset | Comments | | | Date | | + +--------+ + | Medication Orders | 10/05/ | Novolog | | | 2016 | | + +--------+ + Encounter Details +--------+ + + + + | Date | Type | Department | Care Team | Description | +--------+ + + + + | 10/05/ | Telephone | [facility] | Francois Pascal, | Medication Orders | | 2016 | | MEDICINE [address] [place] [place] [address] | [address] | (Novolog ) | | | | AVE [place], | [address] [place], | | | | | [place] [address] | [place] [address] | | | | | [phone] | [phone] | | | | | | | [...] Telephone Encounter - Ameena Coleman RN - 10/05/2016 8:54 AM PDTReceived [facility] Medication changed d ocumented in this encounter Plan of [...] | | | | | | [place] [address] | | | | | | [phone] | | | | | | | | +--------+---------+ + + + documented as of this encounter Visit Diagnoses Not on filedocumented in this encounter"
--- OUTSIDE RECORDS SUMMARY | ~2019-09-12 | XMS | Encounter Summary ---
Demographics + + + | Address | [address] | | | [place] [address] | + + + | Home Phone [...] | Author | [facility] | | | and Clarkeana | + + + | Organization | [facility] [...] | | | | | [place] [address] | | + + + + + | Valentín Saleh | ECON | [address] | | | | | [place] [address] | | + + + + + [...] | instability | [address] | | | | n | [address] | [place], | | | | | (ICD-10-CM) | [place] | [place] [address] | | | | | - [address] | [place] | Phone: | | | | | (ICD-9-CM) - | [address] | [phone] | | | | | Gait | Phone: | Fax: | | | | | instability | [phone] | [phone] | | | | | Procedures | Fax: | | | | | | pt eval | [phone] | | +--------+ + + + + + Encounter Details +--------+---------+ + + + | Date | Type | Department | Care Team | Description | +--------+---------+ + + + | 01/15/ | Office | [facility] | Francois Pascal, | Impaired functional | | 2015 | Visit | MED CTR THERAPY PT | [place] [address] | mobility, balance, | | | | OP [address] | [address] [place], | gait, and endurance | | | | [place] | [place] [address] | (Primary Dx); | | | | [address] | [phone] | Posture imbalance; | | | | [phone] | | Left ankle pain | | | | | Cheyenne Caballero, | | | | | | OLIVE PICKER [address] | | | | | | [place] | | | | | | [address] | | | | | | | [...] of this encounter Progress Notes Cheyenne Caballero, OLIVE PICKER - 01/15/2015 11:39 AM PSTFormatting of this note might be different f rom the original. [facility] CTR THERAPY PT OP [address] [place] [address] Physical Therapy Daily Treatment Note Date: 01/15/2015 [...] | | | | | | [place] [address] | | | | | | [phone] | | | | | | | [...]
--- OUTSIDE RECORDS SUMMARY | ~2019-09-12 | XMS | Encounter Summary ---
Demographics + + + | Address | [address] | | | [place] [address] | + + + | Home Phone [...] + | Author | [facility] | | | and Clarkeana | + + + | Organization | [facility] | | [...] | | | | | [place] [address] | | + + + + + | Valentín Saleh | ECON | [address] | | | | | [place] [address] | | + + + + + | Roberto Carlos Lennon | LEVI | [place] | | + + + + + Care Team Providers + +------+ + | Care Soil Chemist Name | Role | Phone | + +------+ + PCP | Unavailable | + +------+ + Encounter Details +--------+ + + + + | Date | Type | Department | Care Team | Description | +--------+ + + + + | 04/25/ | Hospital | [facility] | | | | 1995 | Encounter | MED CTR GENERIC OP | | | | | | CONV DEPT [address] | | | | | | [place], | | | | | | [place] [address] | | | | | | [phone] | | | +--------+ + + + [...] | | | | | | [place] [address] | | | | | | [phone] | | | | | | | | +--------+---------+ + + + documented as of this encounter Visit Diagnoses Not on filedocumented in this encounter"
--- OUTSIDE RECORDS SUMMARY | ~2019-09-12 | XMS | Encounter Summary ---
Demographics + + + | Address | [address] | | | [place] [address] | + + + | Home Phone [...] Author | [facility] | | | and Clarkeana | + + + | Organization | [facility] [...] | | | | | [place] [address] | | + + + + + | Valentín Saleh | ECON | [address] | | | | | [place] [address] | | + + + + + | Roberto Carlos Lennon | LEVI | Unknown | | + + + + + Care Team Providers + +------+ + | Care Community Assistant Name | Role | Phone | + +------+ + | Francois Pascal MD | PCP | | + +------+ + Reason for Visit + +--------+ + | Reason | Onset | Comments | | | Date | | + +--------+ + | Medication Refill | 03/10/ | | | | 2012 | | + +--------+ + Encounter Details +--------+--------+ + + + | Date | Type | Department | Care Team | Description | +--------+--------+ + + + | 03/10/ | Refill | [facility] | Diane Penn RN | Medication Refill | | 2012 | | MEDICINE [facility] [place] | | | | | | [place], | | | | | | [place] [address] | | | | | | [phone] | | | +--------+--------+ + + + [...] | | | | | | [place] [address] | | | | | | [phone] | | | | | | | | +--------+---------+ + + + documented as of this encounter Results TRE w/ [...] | | | | | | [facility] | | | | [...] + | [facility] | [address] | [place], [place] | [phone] | | [facility] | | [address] | | | - LABORATORY | | | | + + + + + | [facility] | [address] | [place], [place] | | | [facility] | | [address] [place] [address] | | | - LABORATORY | | | | + + + + + documented in this encounter Visit Diagnoses + + | Diagnosis | + + | ARTHRITIS, CHRONIC - Primary Arthropathy, unspecified, site unspecified | + + documented in this encounter"
--- OUTSIDE RECORDS SUMMARY | ~2019-09-12 | XMS | Encounter Summary ---
Demographics + + + | Address | [address] | | | [place] [address] | + + + | Home Phone [...] Author | [facility] | | | and Clarkeana | + + + | Organization | [facility] | [...] | | | | | [place] [address] | | + + + + + | Valentín Saleh | ECON | [address] | | | | | [place] [address] | | + + + + + | Roberto Carlos Lennon | LEVI | Unknown | | + + + + + Care Team Providers + +------+ + | Care Transplant Registered Nurse Name | Role | Phone | [...] + + | 08/10/ | Office | [facility] | Francois Pascal, | Diabetes mellitus | | 2016 | Visit | MEDICINE [address] | [address] | due to underlying | | | | AVE [place], | [address] [place], | condition with | | | | [place] [address] | [place] [address] | hyperglycemia (HCC) | | | | [phone] | [phone] | (Primary Dx); Other | | | [...] | MD [facility] | | | | | | [place], | | | | | | [place] [address] | | | | | | [phone] | | | | | | | [...]
--- OUTSIDE RECORDS SUMMARY | ~2019-09-12 | XMS | Encounter Summary ---
Demographics + + + | Address | [address] | | | [place] [address] | + + + | Home Phone [...] | Author | [facility] | | | and Clarkeana | + + + | Organization | [facility] [...] | | | | | [place] [address] | | + + + + + | Valentín Saleh | ECON | [address] | | | | | [place] [address] | | + + + + + | Roberto Carlos Lennon | LEVI | [place] | | + + + + + Care Team Providers + +------+ + | Care Supervisor Of Communications Name | Role | Phone | + +------+ + PCP | Unavailable | + +------+ + Encounter Details +--------+ + + + + | Date | Type | Department | Care Team | Description | +--------+ + + + + | 10/16/ | Hospital | [facility] | Francois Pascal, | | | 2009 | Encounter | MED CTR LABORATORY | [address] | | | | | [address] [place] | [address] [place], | | | | | [place] | [place] [address] | | | | | [address] | [phone] | | | | | [phone] | | | +--------+ + + + [...] | | | | | | [place] [address] | | | | | | [phone] | | | | | | | | +--------+---------+ + + + documented as of this encounter Visit Diagnoses Not on filedocumented in this encounter"
--- OUTSIDE RECORDS SUMMARY | ~2019-09-12 | XMS | Encounter Summary ---
Demographics + + + | Address | [address] | | | [place] [address] | + + + | Home Phone [...] | | | | | [place] [address] | | + + + + + | Valentín Saleh | ECON | [address] | | | | | [place] [address] | | + + + + + [...] + + | 02/23/ | Hospital | [facility] | Francois Pascal, | | | 2009 | Encounter | MED CTR XRAY [address] | [address] | | | | | [place] | [address] [place], | | | | | [place] [address] | [place] [address] | | | | | [phone] | [phone] | | | | | | | [...] | 12/06/ | Office | Cardiology | Stephneie Paul, | | | 2019 | Visit | | MD Bob Sheehan | | | | | | [place], | | | | | | [place] [address] | | | | | | [phone] | | | | | | | | +--------+---------+ + + + documented as of this encounter Visit Diagnoses Not on filedocumented in this encounter"
--- OUTSIDE RECORDS SUMMARY | ~2019-09-12 | XMS | Encounter Summary ---
Demographics + + + | Address | [address] | | | [place] [address] | + + + | Home Phone [...] + | Author | [facility] | | | and Clarkeana | + + + | Organization | [facility] | | [...] | | | | | [place] [address] | | + + + + + | Valentín Saleh | ECON | [address] | | | | | [place] [address] | | + + + + + | Roberto Carlos Lennon | LEVI | Unknown | | + + + + + Care Team Providers + +------+ + | Care Lunchroom Aide Name | Role | Phone | [...] + + | 03/21/ | Office | [facility] | Francois Pascal, | Diabetes mellitus | | 2013 | Visit | MEDICINE [facility] | [address] | (HCC) (Primary Dx) | | | | [address] | [address] [place], | | | | | [place] | [place] [address] | | | | | [address] | [phone] | | | | | [phone] | | | +--------+---------+ + + + [...] her diet "with every bit she takes", Banning caused a few pr oblems with her [...] VSD Father 50 Pneumonia Family Hx of Lavelle's chorea Sister and 2 brothers: CAD, Lavelle's Disease to Sigrid - with 2 Healthy [...] | | | | | | [place] [address] | | | | | | [phone] | | | | | | | [...] + | [facility] | [address] | [place], [place] | [phone] | | [facility] | | [address] | | | - LABORATORY | | | | + + + + + | [facility] | [address] | [place], [place] | | | [facility] | | [address] [place] [address] | | | - LABORATORY | | [...]
--- OUTSIDE RECORDS SUMMARY | ~2019-09-12 | XMS | Encounter Summary ---
Demographics + + + | Address | [address] | | | [place] [address] | + + + | Home Phone [...] | Author | [facility] | | | and Clarkeana | + + + | Organization | [facility] [...] | | | | | [place] [address] | | + + + + + | Valentín Saleh | ECON | [address] | | | | | [place] [address] | | + + + + + | Roberto Carlos Lennon | LEVI | [place] | | + + + + + Care Team Providers + +------+ + | Care Handicapped Teacher Name | Role | Phone | + +------+ + PCP | Unavailable | + +------+ + Encounter Details +--------+ + + + + | Date | Type | Department | Care Team | Description | +--------+ + + + + | 03/13/ | Hospital | [facility] | Mauricio Rider | | | 2010 | Encounter | MED CTR MP INTRA OP | MD [address] [facility] | | | | | [address] | [place] | | | | | [place] | [address] | | | | | [address] | | | | | | [phone] | | | +--------+ + + + [...] | | | | | | [place] [address] | | | | | | [phone] | | | | | | | | +--------+---------+ + + + documented as of this encounter Visit Diagnoses Not on filedocumented in this encounter"
--- OUTSIDE RECORDS SUMMARY | ~2019-09-12 | XMS | Encounter Summary ---
Demographics + + + | Address | [address] | | | [place] [address] | + + + | Home Phone [...] Author | [facility] | | | and Clarkeana | + + + | Organization | [facility] | | [...] | | | | | [place] [address] | | + + + + + | Valentín Saleh | ECON | [address] | | | | | [place] [address] | | + + + + + | Roberto Carlos Lennon | LEVI | Unknown | | + + + + + Care Team Providers + +------+ + | Care Self Propelled Hot Mix Roller Operator Name | Role | Phone | [...] + + | 10/12/ | Telephone | [facility] | Fackenthall, | Blood Pressure | | 2016 | | NEPHROLOGY [address] | [address] | | | | | [facility] [address] | [address] [facility] [facility] | | | | | [place], [place] | [address] [place] | | | | | [address] | [address] | | | | | [phone] | | | +--------+ + + + [...] | | | | | | [place] [address] | | | | | | [phone] | | | | | | | | +--------+---------+ + + + documented as of this encounter Visit Diagnoses Not on filedocumented in this encounter"
--- OUTSIDE RECORDS SUMMARY | ~2019-09-12 | XMS | Encounter Summary ---
[...] | Author | [facility] | | | and Clarkeana | + + + | Organization | [facility] [...] | | | | | [place] [address] | | + + + + + | Valentín Saleh | ECON | [address] | | | | | [place] [address] | | + + + + + | Roberto Carlos Lennon | LEVI | [place] | | + + + + + Care Team Providers + +------+ + | Care Research Geologist Name | Role | Phone | + +------+ + PCP | Unavailable | + +------+ + Encounter Details +--------+ + + + + | Date | Type | Department | Care Team | Description | +--------+ + + + + | 07/30/ | Hospital | [facility] | | | | 2003 | Encounter | MED CTR MP INTRA OP | | | | | | [address] | | | | | | [place] | | | | | | [address] | | | | | | [phone] | | | +--------+ + + + [...] | | | | | | [place] [address] | | | | | | [phone] | | | | | | | | +--------+---------+ + + + documented as of this encounter Visit Diagnoses Not on filedocumented in this encounter"
--- OUTSIDE RECORDS SUMMARY | ~2019-09-12 | XMS | Encounter Summary ---
Demographics + + + | Address | [address] | | | [place] [address] | + + + | Home Phone [...] | Author | [facility] | | | and [place] | + + + | Organization | [facility] | | [...] | | | | | [place] [address] | | + + + + + | Valentín Saleh | ECON | [id number] | | | | | [place] [address] | | + + + + + | Roberto Carlos Lennon | LEVI | [place] | | + + + + + Care Team Providers + +------+ + | Care Gum Maker Name | Role | Phone | + +------+ + PCP | Unavailable | + +------+ + Encounter Details +--------+ + + + + | Date | Type | Department | Care Team | Description | +--------+ + + + + | 03/06/ | Hospital | [facility] | Francois Pascal, | | | 2008 | Encounter | MED CTR XRAY [address] | [address] | | | | | [place] | [address] [place], | | | | | [place] [address] | [place] [address] | | | | | [phone] | [phone] | | | | | | | [...] | | | | | | [place] [address] | | | | | | [phone] | | | | | | | | +--------+---------+ + + + documented as of this encounter Visit Diagnoses Not on filedocumented in this encounter"
--- OUTSIDE RECORDS SUMMARY | ~2019-09-12 | XMS | Encounter Summary ---
Demographics + + + | Address | [address] | | | [place] [address] | + + + | Home Phone [...] Author | [facility] | | | and [place] | + + + | Organization | [facility] | | | [...] | | | | | [place] [address] | | + + + + + | Valentín Saleh | ECON | [address] | | | | | [place] [address] | | + + + + + | Roberto Carlos Lennon | LEVI | Unknown | | + + + + + Care Team Providers + +------+ + | Care Clinical Statistics Manager Name | Role | Phone | [...] | | | [place] | [address] | | | | | [address] | [address] | | | | | [phone] | | | +--------+ + + + [...] AM PSTLabs for appointment 06/12/15 sent to [facility].Elec tronically signed by Aubree Pink RN at [...] | | | | | | [place] [address] | | | | | | [phone] | | | | | | | | +--------+---------+ + + + documented as of this encounter Visit Diagnoses Not on filedocumented in this encounter"
--- OUTSIDE RECORDS SUMMARY | ~2019-09-12 | XMS | Encounter Summary ---
Demographics + + + | Address | [address] | | | [place] [address] | + + + | Home Phone [...] | Located [facility] | | | and [place] | + + + | Organization | [facility] [...] | | | | | [place] [address] | | + + + + + | Valentín Saleh | ECON | [address] | | | | | [place] [address] | | + + + + + | Roberto Carlos Lennon | LEVI | Unknown | | + + + + + Care Team Providers + +------+ + | Care Roving Carrier Name | Role | Phone | [...] + + | 07/06/ | Telephone | [facility] | [place], | Appointment (cancel) | | 2012 | | NEPHROLOGY [address] | [address] | | | | | [facility] | W [facility] | | | | | [place] | [address] | | | | | [address] | [address] | | | | | [phone] | | | +--------+ + + + [...] | | | | | | [place] [address] | | | | | | [phone] | | | | | | | | +--------+---------+ + + + documented as of this encounter Visit Diagnoses Not on filedocumented in this encounter"
--- OUTSIDE RECORDS SUMMARY | ~2019-09-12 | XMS | Encounter Summary ---
Demographics + + + | Address | [address] | | | [place] [address] | + + + | Home Phone [...] | [facility] | | | and [place] | + + + | Organization | [facility] [...] | | | | | [place] [address] | | + + + + + | Valentín Saleh | ECON | [phone] | | | | | [place] [address] | | + + + + + | Roberto Carlos Lennon | LEVI | Unknown | | + + + + + Care Team Providers + +------+ + | Care Dough Mixer Name | Role | Phone | [...] | 01/11/ | Refill | [facility] | Francois Pascal, | Medication Refill | | 2015 | | MEDICINE [facility] | [address] | | | | | [address]VE [place], | [address] [place], | | | | | [place] [address] | [place] [address] | | | | | [phone] | [phone] | | | | | | | [...] | | | | | | [place] [address] | | | | | | [phone] | | | | | | | | +--------+---------+ + + + documented as of this encounter Visit Diagnoses Not on filedocumented in this encounter"
--- OUTSIDE RECORDS SUMMARY | ~2019-09-12 | XMS | Encounter Summary ---
Demographics + + + | Address | [address] | | | [place] [address] | + + + | Home Phone [...] Author | [facility] | | | and [place] | + + + | Organization | [facility] | | | and [...] | | | | | [place] [address] | | + + + + + | Valentín Saleh | ECON | [address] | | | | | [place] [address] | | + + + + + | Roberto Carlos Lennon | LEVI | Unknown | | + + + + + Care Team Providers + +------+ + | Care Histotechnician Name | Role | Phone | + +------+ + | Francois Pascal MD | PCP | | + +------+ + Encounter Details +--------+ + + + + | Date | Type | Department | Care Team | Description | +--------+ + + + + | 06/23/ | Hospital | [facility] | Francois Pascal, | DM (diabetes | | 2013 | Encounter | MED CTR LABORATORY | [address] | mellitus) ([facility]); | | | | [address] [place] | [address] [place], | CHRONIC KIDNEY | | | | [place], [place] | [place] [address] | DISEASE STAGE III | | | | [address] | [phone] | (MODERATE); | | | | [phone] | | ARTHRITIS, CHRONIC | +--------+ + [...] [address] | | | | | | [place], | | | | | | [place] [address] | | | | | | [phone] | | | | | | | [...] + | [facility] | [address] | [place], [place] | [phone] | | [facility] | | [address] | | | - LABORATORY | | | | + + + + + | [facility] | [address] | [place], [place] | | | [facility] | | [address] | | | - LABORATORY [...] + | [facility] | [address] | [place] | [phone] | | [facility] | | [address] | | | - LABORATORY | | | | + + + + + | [facility] | [address] | [place], [place] | | | [facility] | | [address] [place] [address] | | | - LABORATORY | | [...] + | [facility] | [address] | [place] | [phone] | | [facility] | | [address] | | | - LABORATORY | | | | + + + + + | [facility] | [address] | [place], [place] | | | [facility] | | [id number] [place] [address] | | | - LABORATORY | | [...] + | [facility] | [address] | [place] | [phone] | | [facility] | | [address] | | | - LABORATORY | | | | + + + + + | [facility] | [address] | [place], [place] | | | [facility] | | [id number] | | | - LABORATORY | [...] + | [facility] | [address] | [place], [place] | [phone] | | [facility] | | [address] | | | - LABORATORY | | | | + + + + + | [facility] | [address] | [place], [place] | | | [facility] | | [id number] [place] [address] | | | - LABORATORY | | [...]
--- OUTSIDE RECORDS SUMMARY | ~2019-09-12 | XMS | Encounter Summary ---
Demographics + + + | Address | [address] | | | [place] [address] | + + + | Home Phone [...] Author | [facility] | | | and [place] | + + + | Organization | [facility] [...] | | | | | [place] [address] | | + + + + + | Valentín Saleh | ECON | [address] | | | | | [place] [address] | | + + + + + | Roberto Carlos Lennon | LEVI | Unknown | | + + + + + Care Team Providers + +------+ + | Care Power Generation Plant Operator Name | Role | Phone | + +------+ + | Francois Pascal MD | PCP | | + +------+ + Reason for Visit + +--------+ + | Reason | Onset | Comments | | | Date | | + +--------+ + | Referral | 08/13/ | | | | 2015 | | + +--------+ + Encounter Details +--------+ + + + + | Date | Type | Department | Care Team | Description | +--------+ + + + + | 08/13/ | Telephone | [facility] | Francois Pascal, | Referral | | 2015 | | MEDICINE [address] [place] [address] | [address] | | | | | [place], | [address] [place], | | | | | [place] [address] | [place] [address] | | | | | [phone] | [phone] | | | | | | | [...] Telephone Encounter - Mildred Gunn RN - 08/14/2015 9:[address] Miramontes' s office to inquire which surgeon he would recommend for Left ankle surgery d/t OA per MD. Their office states patient does not want to pursue at this point. documented in this encounter Plan of Treatment +--------+---------+ + + + | Date | Type | Specialty | Care Team | Description | +--------+---------+ + + + | 12/06/ | Office | Cardiology | Stephenie Paul, | | | 2019 | Visit | | MD Bob [place] | | | | | | [place], | | | | | | [place] [address] | | | | | | [phone] | | | | | | | | +--------+---------+ + + + documented as of this encounter Visit Diagnoses Not on filedocumented in this encounter"
--- OUTSIDE RECORDS SUMMARY | ~2019-09-12 | XMS | Encounter Summary ---
Demographics + + + | Address | [address] | | | [place] [address] | + + + | Home Phone [...] + | Author | [facility] | | | and [place] | + + + | Organization | [facility] [...] | | | | | [place] [address] | | + + + + + | Valentín Saleh | ECON | [address] | | | | | [place] [address] | | + + + + + | Roberto Carlos Lennon | LEVI | Unknown | | + + + + + Care Team Providers + +------+ + | Care Licensed Loan Officer Assistant Name | Role | Phone | [...] | instability | [address] | [place] | | | | n | [address] | [address] | [place], | | | | | (ICD-10-CM) | [place] | [place] [address] | | | | | - 781.2 | [place] | Phone: | | | | | (ICD-9-CM) - | [address] | [phone] | | | | | Gait | Phone: | Fax: | | | | | instability | [phone] | [phone] | | | | | Procedures | Fax: | | | | | | pt eval | [phone] | | +--------+ + + + + + Encounter Details +--------+---------+ + + + | Date | Type | Department | Care Team | Description | +--------+---------+ + + + | 02/17/ | Office | [facility] | Francois Pascal, | Posture imbalance | | 2015 | Visit | MED CTR THERAPY PT | MD [address] | (Primary Dx); | | | | OP [address] | [address] [place], | Impaired functional | | | | [place] | [place] [address] | mobility, balance, | | | | [address] | [phone] | gait, and endurance; | | | | [phone] | | Left ankle pain | | | | | Cheyenne Caballero, | | | | | | SECURITY SPECIALIST [address] | | | | | | [place] | | | | | | [address] | | | | | | | [...] of this encounter Progress Notes Cheyenne Caballero, SECURITY SPECIALIST - 02/17/2015 12:12 PM PSTFormatting of this note might be different f rom the original. [facility] CTR THERAPY PT OP [address] [place] [id number] Physical Therapy Daily Treatment Note Date: 02/17/2015 Patient Information Patient Name: Alyson Lennon Date of : 1930 Age: 84 y.o. Encounter Diagnoses Code Name Primary? R29.3 Posture imbalance Yes Z74.09 Impaired functional mobility, balance, gait, and endurance M25.572 Left ankle pain Date of Onset: 10/24/2014 Referring Provider: Francois Pascal MD Rehab Precautions Office Visit from 12/24/2014 in [facility] CTR THERAPY PT OP Rehab [...] | | | | | | [place] [id number] | | | | | | [phone] | | | | | | | [...]
--- OUTSIDE RECORDS SUMMARY | ~2019-09-12 | XMS | Encounter Summary ---
Demographics + + + | Address | [address] | | | [place] [address] | + + + | Home Phone [...] | [facility] | | | and [place] | + + + | Organization | [facility] | [...] | | | | | [place] [address] | | + + + + + | Valentín Saleh | ECON | [address] | | | | | [place] [address] | | + + + + + | Roberto Carlos Lennon | LEVI | Unknown | | + + + + + Care Team Providers + +------+ + | Care Hassock Maker Name | Role | Phone | [...] + | 11/27/ | Office | [facility] | Francois Pascal, | CHRONIC KIDNEY | | 2012 | Visit | MEDICINE [place] | [address] | DISEASE STAGE III | | | | [address] | [address] [place], | (MODERATE) (Primary | | | | [place], [place] | [place] [address] | Dx); DM (diabetes | | | | [address] | [phone] | mellitus) (HCC); | | | | [phone] | | Hyperlipidemia; | | | | [...] Recent visit with clara Hansel at the [facility]. Left leg arthritis still some intermittent soreness, [...] VSD Father 50 Pneumonia Family Hx of Colfax's chorea Sister and 2 brothers: CAD, [place]'s Disease to [place] - with 2 Healthy Children No kidney disease in family. Social History: Reviewed history from 08/11/2011 and no changes required: Born in [facility] for [facility] years. and Remarried [...] | 2020 | Visit | | [address] [place] | | | | | | [place], | | | | | | [place] [address] | | | | | | [phone] | | | | | | | [...]
--- OUTSIDE RECORDS SUMMARY | ~2019-09-12 | XMS | Encounter Summary ---
Demographics + + + | Address | [address] | | | [place] [address] | + + + | Home Phone [...] | Author | [facility] | | | and [place] | + + + | Organization | [facility] | [...] | | | | | [place] [address] | | + + + + + | Valentín Saleh | ECON | [address] | | | | | [place] [address] | | + + + + + | Roberto Carlos Lennon | LEVI | Unknown | | + + + + + Care Team Providers + +------+ + | Care Chief Fundraising Officer Name | Role | Phone | [...] Refill | | 2013 | | MEDICINE [facility] | [address] | | | | | [address] | [address] [place], | | | | | [place] | [place] [address] | | | | | [address] | [phone] | | | | | [phone] | | | +--------+--------+ + + + [...] | | | | | | [place] [address] | | | | | | [phone] | | | | | | | | +--------+---------+ + + + documented as of this encounter Visit Diagnoses Not on filedocumented in this encounter"
--- OUTSIDE RECORDS SUMMARY | ~2019-09-12 | XMS | Encounter Summary ---
Demographics + + + | Address | [address] | | | [place] [address] | + + + | Home Phone [...] [facility] | | | and [place] | + + + | Organization | [facility] | [...] | | | | | [place] [address] | | + + + + + | Valentín Saleh | ECON | [address] | | | | | [place] [address] | | + + + + + | Roberto Carlos Lennon | LEVI | Unknown | | + + + + + Care Team Providers + +------+ + | Care Cow Trimmer Name | Role | Phone | [...] | | Rehabilitatio | of skin | [address] | | | | n | sensation | [place] | [address] | | | | | Neuropathy | Ave | [place] | | | | | Procedures | [place] | [address] Phone: | | | | | [place] | [place] | [phone] | | | | | &/SENS 1-2 | [address] | Fax: | | | | | NRV CNDJ | Phone: | [phone] | | | | | PRECONF | [phone] | | | | | | ELTRODE LIMB | Fax: | | | | | | [place] | [phone] | | | | | | &/SENS 7-8 | | | | | | | NRV CNDJ | | | | | | | PRECONF | | | | | | | ELTRODE LIMB | | | | | | | MN NEEDLE | | | | | | | EMG EA | | | | | | | EXTREMITY | | | | | | | W/PARASPINL | | | | | | | AREA LIMITED | | | | | | | [place] NEEDLE | | | | | | [...] | | | [address] [address] | [place] [address] | hyperglycemia (HCC) | | | | [address] | [phone] | (Primary Dx); | | | | [phone] | | Diabetic | | | | [...] might be different from the or iginal. [facility] Musculoskeletal, Sports and Spine, Physiatry [facility] [address] [address] Test Date: 11/24/2015 Patient Name: Alyson Lennon : 1930 Physician: Maxime Herbert MD MR #: [id number] Sex: Female Referring Physician: Trevor Ochoa MD [...] study. 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 There [...] hesitate to call. Maxime Herbert MD Diplomate, [place] and [employer]. 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 | | [...] | | | Maxime Herbert MD Diplomate, [place] Physical Medicine | | | [...]
--- OUTSIDE RECORDS SUMMARY | ~2019-09-12 | XMS | Encounter Summary ---
Demographics + + + | Address | [address] | | | [place] [address] | + + + | Home Phone [...] + + | Author | [facility] | | | and [place] | + + + | Organization | [facility] | | | [...] | | | | | [place] [address] | | + + + + + | Valentín Saleh | ECON | [address] | | | | | [place] [address] | | + + + + + | Roberto Carlos Lennon | LEVI | [place] | | + + + + + Care Team Providers + +------+ + | Care Baggage Porter Head Name | Role | Phone | + +------+ + PCP | Unavailable | + +------+ + Encounter Details +--------+ + + + + | Date | Type | Department | Care Team | Description | +--------+ + + + + | 01/15/ | Hospital | [facility] | | | | 2002 | Encounter | MED CTR LABORATORY | | | | | | [address] | | | | | | [place] | | | | | | [address] | | | | | | [phone] | | | +--------+ + + + [...] | | | | | | [place] [address] | | | | | | [phone] | | | | | | | | +--------+---------+ + + + documented as of this encounter Visit Diagnoses Not on filedocumented in this encounter"
--- OUTSIDE RECORDS SUMMARY | ~2019-09-12 | XMS | Encounter Summary ---
Demographics + + + | Address | [address] | | | [place] [address] | + + + | Home Phone [...] Author | [facility] | | | and [place] | + + + | Organization | [facility] | | [...] | | | | | [place] [address] | | + + + + + | Valentín Saleh | ECON | [address] | | | | | [place] [address] | | + + + + + | Roberto Carlos Lennon | LEVI | Unknown | | + + + + + Care Team Providers + +------+ + | Care Computer Network Support Specialist Name | Role | Phone [...] + + | 12/11/ | Office | [facility] | Francois Pascal, | Squamous carcinoma | | 2013 | Visit | [facility] | [address] | (HCC) (Primary Dx) | | | | [address] | [address] [place], | | | | | [place] | [place] [address] | | | | | [address] | [phone] | | | | | [phone] | | | +--------+---------+ + + + [...] | | | | | | [place] [address] | | | | | | [phone] | | | | | | | | +--------+---------+ + + + documented as of this encounter Visit Diagnoses + + | Diagnosis | + + | Squamous carcinoma - Primary Other malignant neoplasm without specification of site | + + documented in this encounter
--- OUTSIDE RECORDS SUMMARY | ~2019-09-12 | XMS | Encounter Summary ---
Demographics + + + | Address | [address] | | | [place] [address] | + + + | Home Phone [...] Author | [facility] | | | and [place] | + + + | Organization | [facility] [...] | | | | | [place] [address] | | + + + + + | Valentín Saleh | ECON | [address] | | | | | [place] [address] | | + + + + + | Roberto Carlos Lennon | LEVI | Unknown | | + + + + + Care Team Providers + +------+ + | Care Latin Professor Name | Role | Phone | + +------+ + | Francois Pascal MD | PCP | | + +------+ + Encounter Details +--------+ + + + + | Date | Type | Department | Care Team | Description | +--------+ + + + + | 02/16/ | Hospital | [facility] | Francois Pascal, | High risk medication | | 2016 | Encounter | MED CTR LABORATORY | [address] | use; Type 2 | | | | [address] [place] | [address] [place], | diabetes mellitus | | | | [place], [place] | [place] [address] | with stage 3 chronic | | | | [address] | [phone] | kidney disease | | | | [phone] | | (HCC) | +--------+ + + [...] | | 0 | | | | Vtguxjl-Zxrevwtdh-Ps | mouth Daily. | | | | [...] | | | | | | [place] [address] | | | | | | [phone] | | | | | | | [...] ST. | [address] | [place] | [phone] | | [facility] | | [address] | | | - LABORATORY | | [...] ST. | [address] | [place] | [phone] | | [facility] | | [address] | | | - LABORATORY | | [...] 1.59 (H) | 0.60 - 1.30 | [facility] | | | | | mg/dL | [facility] | | | | | | MEDICAL | | | | | | CENTER - | | | | | | LABORATORY | | + + + + + + | eGFR if not | 31 (L)Comment: | >=60 | [facility] | | | | GLOMERULAR FILTRATION | mL/min/1.73m2 | [facility] | | | [facility] | RATE,ESTIMATED | | MEDICAL | | | | mL/min/1.07o9Uxnl than | | CENTER - | | [...] ST. | [address] | [place] | [phone] | | [facility] | | [address] | | | - LABORATORY | | [...]
--- OUTSIDE RECORDS SUMMARY | ~2019-09-12 | XMS | Encounter Summary ---
Demographics + + + | Address | [address] | | | [place] [address] | + + + | Home Phone [...] | [facility] | | | and [place] | + + + | Organization | [facility] [...] | | | | | [place] [address] | | + + + + + | Valentín Saleh | ECON | [address] | | | | | [place] [address] | | + + + + + | Roberto Carlos Lennon | LEVI | [place] | | + + + + + Care Team Providers + +------+ + | Care Continuous Washer Operator Name | Role | Phone | + +------+ + PCP | Unavailable | + +------+ + Encounter Details +--------+ + + + + | Date | Type | Department | Care Team | Description | +--------+ + + + + | 03/20/ | Hospital | [facility] | Gal Mejia, | | | 2007 | Encounter | MED CTR XRAY [address] | [address] [facility] | | | | | [place] | [place] | | | | | [place] [address] | [address] | | | | | [phone] | | | +--------+ + + + [...] | | | | | | [place] [address] | | | | | | [phone] | | | | | | | | +--------+---------+ + + + documented as of this encounter Visit Diagnoses Not on filedocumented in this encounter"
--- OUTSIDE RECORDS SUMMARY | ~2019-09-12 | XMS | Encounter Summary ---
Demographics + + + | Address | [address] | | | [place] [address] | + + + | Home Phone [...] | [facility] | | | and [place] | + + + | Organization | [facility] [...] | | | | | [place] [address] | | + + + + + | Valentín Saleh | ECON | [phone] | | | | | [place] [address] | | + + + + + | Roberto Carlos Lennon | LEVI | Unknown | | + + + + + Care Team Providers + +------+ + | Care Regional Rehabilitation Director Name | Role | Phone | + +------+ + | Francois Pascal MD | PCP | | + +------+ + Encounter Details +--------+ + + + + | Date | Type | Department | Care Team | Description | +--------+ + + + + | 11/14/ | Hospital | [facility] | Francois Pascal, | ARTHRITIS, CHRONIC | | 2013 | Encounter | MED CTR LABORATORY | [address] | | | | | [address] [place] | [address] [place], | | | | | [place], [place] | [place] [address] | | | | | [address] | [phone] | | | | | [phone] | | | +--------+ + + + [...] | | | | | | [place] [address] | | | | | | [phone] | | | | | | | [...] [address] | [place] | [phone] | | [facility] | | [address] | | | - LABORATORY | | | | + + + + + | [facility] | [address] | [place] | | | [facility] | | [address], [facility] | | | - LABORATORY [...] | | Cells | | | [facility] | | | | | | [...] | + + + + + | [facility] | [address] | [place], [place] | [phone] | | [facility] | | [address] | | | - LABORATORY | | | | + + + + + | [facility] | [address] | [place], [place] | | | [facility] | | [address] | | | - LABORATORY | | | | + + + + + documented in this encounter Visit Diagnoses + + | Diagnosis | + + | ARTHRITIS, CHRONIC Arthropathy, unspecified, site unspecified | + + documented in this encounter"
--- OUTSIDE RECORDS SUMMARY | ~2019-09-12 | XMS | Encounter Summary ---
Demographics + + + | Address | [address] | | | [place] [address] | + + + | Home Phone [...] | Author | [facility] | | | and [place] | + + + | Organization | [facility] | [...] | | | | | [place] [address] | | + + + + + | Valentín Saleh | ECON | [id number] | | | | | [place] [address] | | + + + + + | Roberto Carlos Lennon | LEVI | Unknown | | + + + + + Care Team Providers + +------+ + | Care Liquid Chlorine Operator Name | Role | Phone | + +------+ + | Francois Pascal MD | PCP | | + +------+ + Encounter Details +--------+ + + + + | Date | Type | Department | Care Team | Description | +--------+ + + + + | 09/14/ | Hospital | [facility] | Francois Pascal, | DM (diabetes | | 2014 | Encounter | MED CTR LABORATORY | [address] | mellitus) | | | | [address] | [address] [place], | | | | | [place] | [place] [address] | | | | | [address] | [phone] | | | | | [phone] | | | +--------+ + + + [...] | | | | | | [place] [address] | | | | | | [phone] | | | | | | | [...] [address] | [place] | [phone] | | [facility] | | [address] | | | - LABORATORY | | | | + + + + + | [address] | [address] | [place] | | | [facility] | | [address], [facility] | | | [...]
--- OUTSIDE RECORDS SUMMARY | ~2019-09-12 | XMS | Encounter Summary ---
Demographics + + + | Address | [address] | | | [place] [address] | + + + | Home Phone [...] | Author | [facility] | | | and [place] | + + + | Organization | [facility] | [...] | | | | | [place] [address] | | + + + + + | Valentín Saleh | ECON | [id number] | | | | | [place] [address] | | + + + + + | Roberto Carlos Lennon | LEVI | Unknown | | + + + + + Care Team Providers + +------+ + | Care Drug Abuse Treatment Specialist Name | Role | Phone | [...] | | | 2019 | | MEDICINE [facility] | [address] | | | | | [address] | [address] [place], | | | | | [place] | [place] [address] | | | | | [address] | [phone] | | | | | [phone] | | | +--------+ + + + [...] | | | | | | [place] [address] | | | | | | [phone] | | | | | | | [...]
--- OUTSIDE RECORDS SUMMARY | ~2019-09-12 | XMS | Encounter Summary ---
Demographics + + + | Address | [address] | | | [place] [address] | + + + | Home Phone [...] | [facility] | | | and [place] | + + + | Organization | [facility] [...] | | | | | [place] [address] | | + + + + + | Valentín Saleh | ECON | [id number] | | | | | [place] [address] | | + + + + + | Roberto Carlos Lennon | LEVI | Unknown | | + + + + + Care Team Providers + +------+ + | Care Commercial Production Editor Name | Role | Phone | [...] + + | 05/31/ | Office | [facility] | Francois Pascal, | Type 2 diabetes | | 2017 | Visit | MEDICINE [address] | [address] | mellitus with | | | | [address] [place] [place], | [address] [place] [place], | complication, with | | | | [place] [address] | [place] [address] | long-term current | | | | [phone] | [phone] | use of insulin (HCC) | | [...] Assessment: Plan: She declines to see a parlor maid, She declines endocrine., Will divide the lantus [...] | | 2019 | Visit | | [address] [place] [address] | | | | | | [place], | | | | | | [place] [address] | | | | | | [phone] | | | | | | | [...] | mL/min/1.73m2 | [facility] | | | BRAZILIAN | RATE,ESTIMATED | | MEDICAL | | | | mL/min/1.32u9Xcmb than | | CENTER - | | [...] + | [facility] | [address] | [place] | [phone] | | [facility] | | [address] | | | - LABORATORY | | [...] | | | Average | | | [facility] | | | Glucose | | | [...] [address] | [place] | [phone] | | [facility] | | [address] | | | - LABORATORY | | [...]
--- OUTSIDE RECORDS SUMMARY | ~2019-09-12 | XMS | Encounter Summary ---
Demographics + + + | Address | [address] | | | [place] [address] | + + + | Home Phone [...] | Author | [facility] | | | and [place] | + + + | Organization | [facility] [...] | | | | | [place] [address] | | + + + + + | Valentín Saleh | ECON | [address] | | | | | [place] [address] | | + + + + + | Roberto Carlos Lennon | LEVI | Unknown | | + + + + + Care Team Providers + +------+ + | Care Pharmacy Services Director Name | Role | Phone [...] | 05/30/ | Refill | [facility] | Francois Pascal, | Medication Refill | | 2014 | | MEDICINE [facility] [place] | [address] | | | | | [address]VE [place], | [address] [place], | | | | | [place] [address] | [place] [address] | | | | | [phone] | [phone] | | | | | | | [...] | | | | | | [place] [address] | | | | | | [phone] | | | | | | | | +--------+---------+ + + + documented as of this encounter Visit Diagnoses Not on filedocumented in this encounter"
--- OUTSIDE RECORDS SUMMARY | ~2019-09-12 | XMS | Encounter Summary ---
Demographics + + + | Address | [address] | | | [place] [address] | + + + | Home Phone [...] | Author | [facility] | | | and [place] | + + + | Organization | [facility] | [...] | | | | | [place] [address] | | + + + + + | Valentín Saleh | ECON | [address] | | | | | [place] [address] | | + + + + + | Roberto Carlos Lennon | LEVI | Unknown | | + + + + + Care Team Providers + +------+ + | Care Strike Out Machine Operator Name | Role | Phone [...] | 11/15/ | Telephone | [facility] [place] [facility] | Francois Pascal, | Edema | | 2017 | | [facility] | [address] | | | | | [address] | [address] [place], | | | | | [place] | [place] [address] | | | | | [address] | [phone] | | | | | [phone] | | | +--------+ + + + [...] | | | | | | [place] [address] | | | | | | [phone] | | | | | | | | +--------+---------+ + + + documented as of this encounter Visit Diagnoses Not on filedocumented in this encounter"
--- OUTSIDE RECORDS SUMMARY | ~2019-09-12 | XMS | Encounter Summary ---
Demographics + + + | Address | [address] | | | [place] [address] | + + + | Home Phone [...] | Author | [facility] | | | and [place] | + + + | Organization | [facility] [...] | | | | | [place] [address] | | + + + + + | Valentín Saleh | ECON | [address] | | | | | [place] [address] | | + + + + + | Roberto Carlos Lennon | LEVI | [place] | | + + + + + Care Team Providers + +------+ + | Care Machine Bender Name | Role | Phone | + +------+ + PCP | Unavailable | + +------+ + Encounter Details +--------+ + + + + | Date | Type | Department | Care Team | Description | +--------+ + + + + | 01/17/ | Hospital | [facility] | [facility] | | | 1997 | Encounter | MED CTR XRAY [address] | M, DO [address] | | | | | [place] | [address] [place] | | | | | [place] [address] | [place] [address] | | | | | [phone] | [phone] | | | | | | | [...] | | | | | | [place] [address] | | | | | | [phone] | | | | | | | | +--------+---------+ + + + documented as of this encounter Visit Diagnoses Not on filedocumented in this encounter"
--- OUTSIDE RECORDS SUMMARY | ~2019-09-12 | XMS | Encounter Summary ---
Demographics + + + | Address | [address] | | | [place] [address] | + + + | Home Phone [...] + + | Author | [facility] | | | and [place] | + + + | Organization | [facility] | [...] | | | | | [place] [address] | | + + + + + | Valentín Saleh | ECON | [address] | | | | | [place] [address] | | + + + + + | Roberto Carlos Lennon | LEVI | [place] | | + + + + + Care Team Providers + +------+ + | Care Inspector Boiler Name | Role | Phone | + +------+ + PCP | Unavailable | + +------+ + Encounter Details +--------+ + + + + | Date | Type | Department | Care Team | Description | +--------+ + + + + | 07/31/ | Hospital | [facility] | | | | 2004 | Encounter | MED CTR LABORATORY | | | | | | [address] | | | | | | [place] | | | | | | [address] | | | | | | [phone] | | | +--------+ + + + [...] | | | | | | [place] [address] | | | | | | [phone] | | | | | | | | +--------+---------+ + + + documented as of this encounter Visit Diagnoses Not on filedocumented in this encounter"
--- OUTSIDE RECORDS SUMMARY | ~2019-09-12 | XMS | Encounter Summary ---
Demographics + + + | Address | [address] | | | [place] [address] | + + + | Home Phone [...] | Author | [facility] | | | and [place] | + + + | Organization | [facility] | | [...] | | | | | [place] [address] | | + + + + + | Valentín Saleh | ECON | [address] | | | | | [place] [address] | | + + + + + | Roberto Carlos Lennon | LEVI | Unknown | | + + + + + Care Team Providers + +------+ + | Care Front Maker Name | Role | Phone | [...] | 10/29/ | Refill | [facility] [place] [facility] | Francois Pascal, | Medication Refill | | 2015 | | MEDICINE [facility] [place] | [address] | | | | | [address]VE [place], | [address] [place], | | | | | [place] [address] | [place] [address] | | | | | [phone] | [phone] | | | | | | | [...] | | | | | | [place] [address] | | | | | | [phone] | | | | | | | | +--------+---------+ + + + documented as of this encounter Visit Diagnoses Not on filedocumented in this encounter"
--- OUTSIDE RECORDS SUMMARY | ~2019-09-12 | XMS | Clinical Summary ---
Demographics + + + | Address | [address] | | | [place] [address] | + + + | Home Phone | | + + + | Preferred Language | Unknown | + + + | Marital Status | Single | + + + | Latter-Day Affiliation | UNK | + + + [...] | | | | | [place] [address] | | + + + + + | None None | ECON | Unknown | Unavailable | + + + + + Care Team Providers + +------+ + | Care Line Appliance Assembler Name | Role | Phone | + +------+ + PCP | Unavailable | + +------+ + Source Comments UBALDO is fully live on both [facility] Ambulatory and [facility] InPatient.[facility] Allergies No Known Allergies Medications + + [...] | MODA | xxxxxxxxx | Effect | [phone] | [address] | [address] | | | [address] | | geovany | 4 | [address] | | | | [place] | | for | | [place], | | | | | | all | | [place] [address] | | | | | | dates [...] | | | | | | | [address] | | + +--------+ +--------+ + +--------+ [...] | 1931 | [phone] | [place] [address] | | | ian | | | 1 (Home) | | + +--------+ +--------+ + +"
--- OUTSIDE RECORDS SUMMARY | ~2019-09-12 | XMS | Encounter Summary ---
Demographics + + + | Address | [address] | | | [place] [address] | + + + | Home Phone [...] | Author | [facility] | | | and [place] | + + + | Organization | [facility] [...] | | | | | [place] [address] | | + + + + + | Valentín Saleh | ECON | [address] | | | | | [place] [address] | | + + + + + | Roberto Carlos Lennon | LEVI | Unknown | | + + + + + Care Team Providers + +------+ + | Care Doctor Of Naturopathic Medicine Name | Role | Phone | + [...] Description | +--------+--------+ + + + | 12/18/ | Refill | [facility] [place] [facility] | Francois Pascal, | Medication Refill | | 2015 | | [facility] | [address] | | | | | [address] | [address] [place], | | | | | [place] | [place] [address] | | | | | [address] | [phone] | | | | | [phone] | | | +--------+--------+ + + + [...] this encounter Miscellaneous Notes Telephone Encounter - Heidi Cooper RN - 12/19/2015 10:06 AM PDTPatient had labs in and CMP but last lipid done 09/10/14. Ok to order? dokrishan ramos in this encounter Plan of [...] | | | | | | [place] [address] | | | | | | [phone] | | | | | | | | +--------+---------+ + + + documented as of this encounter Visit Diagnoses Not on filedocumented in this encounter"
--- OUTSIDE RECORDS SUMMARY | ~2019-09-12 | XMS | Encounter Summary ---
Demographics + + + | Address | [address] | | | [place] [address] | + + + | Home Phone [...] [facility] | | | and [place] | + + + | Organization | [facility] | | [...] | | | | | [place] [address] | | + + + + + | Valentín Saleh | ECON | [address] | | | | | [place] [address] | | + + + + + | Roberto Carlos Lennon | LEVI | Unknown | | + + + + + Care Team Providers + +------+ + | Care Developing Machine Operator Name | Role | Phone | + +------+ + | No, Physician | PCP | Unavailable | + +------+ + Encounter Details +--------+ + + + + | Date | Type | Department | Care Team | Description | +--------+ + + + + | 10/05/ | Lab | [facility] | Fack[place]all, | Chronic kidney | | 2018 | Requisition | MED CTR LABORATORY | [address] | disease, stage III | | | | [address] [place] | [address] | (moderate); | | | | [place] | [address] [place] [address] | Age-related | | | | [address] | [id number] | osteoporosis without | | | | [phone] | | current | | | | [...] | 2019 | Visit | | [address] [facility] | | | | | | [place], | | | | | | [place] [address] | | | | | | [phone] | | | | | | | [...]
--- OUTSIDE RECORDS SUMMARY | ~2019-09-12 | XMS | Encounter Summary ---
Demographics + + + | Address | [address] | | | [place] [address] | + + + | Home Phone [...] | Author | [facility] | | | and [place] | + + + | Organization | [facility] | | | [...] | | | | | [place] [address] | | + + + + + | Valentín Saleh | ECON | [address] | | | | | [place] [address] | | + + + + + | Roberto Carlos Lennon | LEVI | [place] | | + + + + + Care Team Providers + +------+ + | Care Cell Attendant Name | Role | Phone | + +------+ + PCP | Unavailable | + +------+ + Encounter Details +--------+ + + + + | Date | Type | Department | Care Team | Description | +--------+ + + + + | 03/25/ | Hospital | [facility] | Mauricio Rider | | | 2009 | Encounter | MED CTR GENERIC IP | MD [address] [facility] | | | | | CONV DEPT [address] | [place], [place] | | | | | [place], | [address] | | | | | [place] [address] | | | | | | [phone] | | | +--------+ + + + [...] | | | | | | [place] [address] | | | | | | [phone] | | | | | | | | +--------+---------+ + + + documented as of this encounter Visit Diagnoses Not on filedocumented in this encounter"
--- OUTSIDE RECORDS SUMMARY | ~2019-09-12 | XMS | Encounter Summary ---
Demographics + + + | Address | [address] | | | [place] [address] | + + + | Home Phone [...] + | Author | [facility] | | | and [place] | + + + | Organization | [facility] [...] | | | | | [place] [address] | | + + + + + | Valentín Saleh | ECON | [address] | | | | | [place] [address] | | + + + + + | Roberto Carlos Lennon | LEVI | Unknown | | + + + + + Care Team Providers + +------+ + | Care Stock Mover Name | Role | Phone | + [...] | | MD Jennifer | [address] | | | | | Hypertension | [address] | [place], | | | | | , renal | [address] | [place] | | | | | disease, | [place], | [address] | | | | | stage 1-4 or | [place] [address] | Phone: | | | | | unspecified | Phone: | [phone] | | | | | chronic | [phone] | Fax: | | | | | kidney | Fax: | [phone] | | | | | disease | [phone] | | | | | | Essential [...] | | | | | | Complete [place] | | | | | | | ECHO HEART | | | | | | | XTHOJUNO,CO | | | | | | | MPLETE W | | | | | | | DOPPLER [place] | | | | | | | ECHO HEART | | | | | | | DAYDAYCO | | | | | | | MPLETE, W/O | | | | | | | DOPPLER | | | +--------+--------+ + + + + Reason for Visit +--------+--------+ + | Reason | Onset | Comments | | | Date | | +--------+--------+ + | Other | 03/09/ | need more details | | | 2016 | | +--------+--------+ + Encounter Details +--------+ + + + + | Date | Type | Department | Care Team | Description | +--------+ + + + + | 03/09/ | Telephone | [facility] | Jennifer Paul, | Other (need more | | 2017 | | CARDIOLOGY [address] | MD [address] | details) | | | | [address] [place], | [place], | | | | | [place] [address] | [place] [address] | | | | | [phone] | [phone] | | | | | | | [...] Telephone Encounter - Jessica Saucedo RN - 03/11/2016 1:25 PM PSTEcho is complete, Dr Raheem rios is entered into the Care Team. Echo report routed per [employer] routing. Left message on [place] for Myesha at [facility] that it has been sent. .............................. .............Jessica Saucedo RN on 03/11/16 at 13:27 elephone Encounter - Jessica Saucedo RN - 03/10/2016 11:05 AM PSTEcho is scheduled for 03/11/16 .............. .............................Jessica Saucedo RN on 03/10/16 at 11:05 elephone Encounter - Jessica Saucedo RN - 03/09/2016 4:35 PM PSTOrder entered into [employer]. Alyson is notified, I forgot to put it in the order to send a copy to Dr Ochoa. I will watch for the echo to lyle e completed and then send it myself ...........................................Jessica alfred RN on 03/09/16 at 16:37 elephone Encounter - Jennifer Paul MD - 03/09/2016 4:01 PM PSTFine with me. elephone Encounter - Jessica Saucedo RN - 05/2016 3:57 PM PSTKathy notified. They would like to have a new echo done prior to surgery . It is not scheduled yet. I will consult Dr Corado to see if he is willing to order. ..... ......................................Jessica Saucedo RN on 03/09/16 at 15:58 elephone Encounter - Jessica Saucedo RN - 03/09/2016 2:15 PM PSTKathy with [facility], Dr Ochoa, call ed today and left a message on my voicemail. She states that they have received our records and have had the anesthesiologist review. The anesthesiologist is asking if we have a curren t echo. Most recent Echo appears to be from 11/25/14, not sure if that is current enough or if they want one more recent. Left message on Myesha's ext to return my call ............... ............................Jessica Saucedo RN on 03/09/16 at 14:19 documented in this encounter Plan of Treatment +--------+---------+ + + + | Date | Type | Specialty | Care Team | Description | +--------+---------+ + + + | 12/06/ | Office | Cardiology | Jennifer Paul, | | | 2019 | Visit | | MD [address] | | | | | | 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[place], | | | [place] Age | | | 85 year(s) Interpreting BEVERLY | | | JENNIFER Spanish Interpreter | | | JENNIFER PAUL MD Gender [...] | | | EF | | | Dbdmthmfz47% Left Ventricle Diastolic Dimension: 4.48 cm | [...] Volume: 55.29 ml | | | EF Danuupbnb32% | | | | | | Left [...] Rad Results In - 03/11/2016 12:20 PM [facility] Transthoracic Echocardiography Report | | (TTE) Demographics Patient Name RADHA MEADOWS Room Number BRIDGET Patient | | Number [id number] Date of Study 03/11/2016 Visit Number [id number] | | Referring Physician BEVERLY RODRIGUEZ Number Date of | | 1930 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 | [address] | [place] | [phone] | | [facility] | | [address] | | | - IMAGING | | [...]
--- OUTSIDE RECORDS SUMMARY | ~2019-09-12 | XMS | Encounter Summary ---
Demographics + + + | Address | [address] | | | [place] [address] | + + + | Home Phone [...] | Author | [facility] | | | and Clarkeana | + + + | Organization | [facility] | [...] | | | | | [place] [address] | | + + + + + | Valentín Saleh | ECON | [phone] | | | | | [place] [address] | | + + + + + | Roberto Carlos Lennon | LEVI | Unknown | | + + + + + Care Team Providers + +------+ + | Care Parking Lot Attendant Name | Role | Phone | [...] + + | 12/05/ | Office | [facility] | Francois Pascal, | Squamous carcinoma | | 2013 | Visit | [facility] [place] | [address] | ([facility]) (Primary Dx) | | | | [address] | [address] [place], | | | | | [place] | [place] [address] | | | | | [address] | [phone] | | | | | [phone] | | | +--------+---------+ + + + [...] documented in this encounter Progress Notes Francois Pasacl MD - 12/05/2012 4:15 PM PDTFormatting of [...] | | | | | | [place] [address] | | | | | | [phone] | | | | | | | | +--------+---------+ + + + documented as of this encounter Visit Diagnoses + + | Diagnosis | + + | Squamous carcinoma - Primary Other malignant neoplasm without specification of site | + + documented in this encounter"
--- OUTSIDE RECORDS SUMMARY | ~2019-09-12 | XMS | Encounter Summary ---
Demographics + + + | Address | [address] | | | [place] [address] | + + + | Home Phone [...] | Author | [facility] | | | and Clarkeana | + + + | Organization | [facility] | [...] | | | | | [place] [address] | | + + + + + | Valentín Saleh | ECON | [phone] | | | | | [place] [address] | | + + + + + | Roberto Carlos Lennon | LEVI | Unknown | | + + + + + Care Team Providers + +------+ + | Care Manager Port Name | Role | Phone | + [...] | | Gait | [place] | [address] Phone: | | | | | instability | [address] | [phone] | | | | | Procedures | Phone: | Fax: | | | | | [facility] | [phone] | [phone] | | | | | TREATMENT 45 | Fax: | | | | | | | [phone] | | +--------+--------+ + + + + Encounter Details +--------+---------+ + + + | Date | Type | Department | Care Team | Description | +--------+---------+ + + + | 03/17/ | Office | [facility] | Francois Pascal, | Posture imbalance | | 2016 | Visit | MED CTR THERAPY PT | MD [address] | (Primary Dx); | | | | OP [address] | [address] [place], | Impaired functional | | | | [place], [place] | [place] [address] | mobility, balance, | | | | [address] | [phone] | gait, and endurance; | | | | [phone] | | Left ankle pain | | | | | Cheyenne Caballero, | | | | | | PROCESS AUTOMATION ENGINEER [address] | | | | | | [place], [place] | | | | | | [address] | | | | | | | [...] of this encounter Progress Notes Cheyenne Caballero, PROCESS AUTOMATION ENGINEER - 03/17/2015 12:21 PM PSTFormatting of this note might be different f rom the original. [facility] CTR THERAPY PT OP [address] [place] [address] Physical Therapy Daily Treatment Note Date: 03/17/2015 Patient Information Patient Name: Alyson Lennon Date of : 1930 Age: 84 y.o. Encounter Diagnoses Code Name Primary? R29.3 Posture imbalance Yes Z74.09 Impaired functional mobility, balance, gait, and endurance M25.572 Left ankle pain Date of Onset: 10/24/2014 Referring Provider: Francois Pascal MD Rehab Precautions Office Visit from 12/24/2014 in [facility] CTR THERAPY PT OP Rehab Precautions [...] and balance training to reduce fall risk- ecobeeer board side to side, fwd/back, diagonal Supine [...] | | | | | | [place] [address] | | | | | | [phone] | | | | | | | [...]
--- OUTSIDE RECORDS SUMMARY | ~2019-09-12 | XMS | Encounter Summary ---
Demographics + + + | Address | [address] | | | [place] [address] | + + + | Home Phone [...] Author | [facility] | | | and [place]ana | + + + | Organization | [facility] [...] | | | | | [place] [address] | | + + + + + | Valentín Saelh | ECON | [phone] | | | | | [place] [address] | | + + + + + | Roberto Carlos Lennon | LEVI | Unknown | | + + + + + Care Team Providers + +------+ + | Care Air And Missile Defense Crewmember Name | Role | Phone | + [...] Refill | | 2013 | | [facility] [place] | [address] | | | | | [address] | [address] [place], | | | | | [place] | [place] [address] | | | | | [address] | [phone] | | | | | [phone] | | | +--------+--------+ + + + [...] | | | | | | [place] [address] | | | | | | [phone] | | | | | | | | +--------+---------+ + + + documented as of this encounter Visit Diagnoses Not on filedocumented in this encounter"
--- OUTSIDE RECORDS SUMMARY | ~2019-09-12 | XMS | Encounter Summary ---
Demographics + + + | Address | [address] | | | [place] [address] | + + + | Home Phone [...] Author | [facility] | | | and [place] | + + + | Organization | [facility] | [...] | | | | | [place] [address] | | + + + + + | Valentín Saleh | ECON | [id number] | | | | | [place] [address] | | + + + + + | Roberto Carlos Lennon | LEVI | [place] | | + + + + + Care Team Providers + +------+ + | Care Plastic Surgery Technician Name | Role | Phone | + +------+ + PCP | Unavailable | + +------+ + Encounter Details +--------+ + + + + | Date | Type | Department | Care Team | Description | +--------+ + + + + | 02/08/ | Hospital | [facility] | | | | 2005 | Encounter | MED CTR LABORATORY | | | | | | [address] [place] | | | | | | [place] | | | | | | [address] | | | | | | [phone] | | | +--------+ + + + [...] | | | | | | [place] [address] | | | | | | [phone] | | | | | | | | +--------+---------+ + + + documented as of this encounter Visit Diagnoses Not on filedocumented in this encounter"
--- OUTSIDE RECORDS SUMMARY | ~2019-09-12 | XMS | Encounter Summary ---
Demographics + + + | Address | [address] | | | [place] [address] | + + + | Home Phone [...] + | Author | [facility] | | | and [place] | + + + | Organization | [facility] | [...] | | | | | [place] [address] | | + + + + + | Valentín Saleh | ECON | [phone] | | | | | [place] [address] | | + + + + + | Roberto Carlos Lennon | LEVI | Unknown | | + + + + + Care Team Providers + +------+ + | Care Documentation Spec Name | Role | Phone | + +------+ + | No, Physician | PCP | Unavailable | + +------+ + Encounter Details +--------+ + + + + | Date | Type | Department | Care Team | Description | +--------+ + + + + | 07/31/ | Lab | [facility] | Francois Pascal, | Contact with and | | 2018 | Requisition | MED CTR LABORATORY | [address] | (suspected) exposure | | | | [address] [place] | [address] [place], | to potentially | | | | [place] | [place] [address] | hazardous body | | | | [address] | [phone] | fluids; Encounter | | | | [phone] | | for screening for | | [...] | | | | | | [place] [address] | | | | | | [phone] | | | | | | | [...]
--- OUTSIDE RECORDS SUMMARY | ~2019-09-12 | XMS | Encounter Summary ---
Demographics + + + | Address | [address] | | | [place] [address] | + + + | Home Phone [...] | [facility] | | | and [place] | + + + | Organization | [facility] [...] | | | | | [place] [address] | | + + + + + | Valentín Saleh | ECON | [phone] | | | | | [place] [address] | | + + + + + | Roberto Carlos Lennon | LEVI | Unknown | | + + + + + Care Team Providers + +------+ + | Care Advertising Account Manager Name | Role | Phone | [...] | Neurology | Diagnoses | Morasch, | [place], | | | Services | | Rapidly | Francois Tello MD | Roberto Carlos Mckeon | | | Required | | progressive | [address] | | | | dementia | [address] | | | | | ([facility]) | [place] | [address] | | | | | | [place] | [place] | | | | | | [address] | [address] Phone: | | | | | | Phone: | [phone] | | | | | | [phone] | Fax: | | | | | | Fax: | [phone] | | | | | | [phone] | | +--------+ + + + + + Encounter Details +--------+---------+ + + + | Date | Type | Department | Care Team | Description | +--------+---------+ + + + | 08/19/ | Office | [facility] | Francois Pascal, | Rapidly progressive | | 2017 | Visit | MEDICINE [address] | [address] | dementia (Primary | | | | AVE [place], | [address] [place], | Dx); Confusion [place] | | | | [place] [address] | [place] [address] | | | | | [phone] | [phone] | | | | | | | [...] 2019 | Visit | | [address] | | | | | | [place], | | | | | | [place] [address] | | | | | | [phone] | | | | | | | [...]
--- OUTSIDE RECORDS SUMMARY | ~2019-09-12 | XMS | Encounter Summary ---
Demographics + + + | Address | [address] | | | [place] [address] | + + + | Home Phone [...] [facility] | | | and [place]ana | + + + | Organization | [facility] | [...] | | | | | [place] [address] | | + + + + + | Valentín Saleh | ECON | [address] | | | | | [place] [address] | | + + + + + | Roberto Carlos Lennon | LEVI | [place] | | + + + + + Care Team Providers + +------+ + | Care Ocean Export Coordinator Name | Role | Phone | + +------+ + PCP | Unavailable | + +------+ + Encounter Details +--------+ + + + + | Date | Type | Department | Care Team | Description | +--------+ + + + + | 04/29/ | Hospital | [facility] | | | | 1999 | Encounter | MED CTR XRAY [address] | | | | | | [place] | | | | | | [place] [address] | | | | | | [phone] | | | +--------+ + + + [...] | | | | | | [place] [address] | | | | | | [phone] | | | | | | | | +--------+---------+ + + + documented as of this encounter Visit Diagnoses Not on filedocumented in this encounter"
--- OUTSIDE RECORDS SUMMARY | ~2019-09-12 | XMS | Encounter Summary ---
Demographics + + + | Address | [address] | | | [place] [address] | + + + | Home Phone [...] + | Author | [facility] | | | and [place] | + + + | Organization | [facility] | [...] | | | | | [place] [address] | | + + + + + | Valentín Saleh | ECON | [address] | | | | | [place] [address] | | + + + + + | Roberto Carlos Lennon | LEVI | Unknown | | + + + + + Care Team Providers + +------+ + | Care Pest Control Specialist Name | Role | Phone | [...] | | | | | | [place] [address] | | | | | | [phone] | | | +--------+ + + + [...] | | | | | | [place] [address] | | | | | | [phone] | | | | | | | | +--------+---------+ + + + documented as of this encounter Visit Diagnoses Not on filedocumented in this encounter"
--- OUTSIDE RECORDS SUMMARY | ~2019-09-12 | XMS | Encounter Summary ---
Demographics + + + | Address | [address] | | | [place] [address] | + + + | Home Phone [...] | [facility] | | | and [place] | + + + | Organization | [facility] | [...] | | | | | [place] [address] | | + + + + + | Valentín Saleh | ECON | [address] | | | | | [place] [address] | | + + + + + | Roberto Carlos Lennon | LEVI | [place] | | + + + + + Care Team Providers + +------+ + | Care Cdl Instructor Name | Role | Phone | + +------+ + PCP | Unavailable | + +------+ + Encounter Details +--------+ + + + + | Date | Type | Department | Care Team | Description | +--------+ + + + + | 12/20/ | Hospital | [facility] | | | | 2001 | Encounter | MED CTR MP INTRA OP | | | | | | [address] | | | | | | [place] | | | | | | [address] | | | | | | [phone] | | | +--------+ + + + [...] | | | | | | [place] [address] | | | | | | [phone] | | | | | | | | +--------+---------+ + + + documented as of this encounter Visit Diagnoses Not on filedocumented in this encounter"
--- OUTSIDE RECORDS SUMMARY | ~2019-09-12 | XMS | Encounter Summary ---
Demographics + + + | Address | [address] | | | [place] [address] | + + + | Home Phone [...] | Author | [facility] | | | and [place] | + + + | Organization | [facility] | [...] | | | | | [place] [address] | | + + + + + | Valentní Saleh | ECON | [phone] | | | | | [place] [address] | | + + + + + | Roberto Carlos Lennon | LEVI | Unknown | | + + + + + Care Team Providers + +------+ + | Care Fixed Capital Clerk Name | Role | Phone | [...] + + | 01/05/ | Office | [facility] | Fackenthall, | CHRONIC KIDNEY | | 2011 | Visit | NEPHROLOGY [address] | [address] | DISEASE STAGE III | | | | [address] | [address] [place] | (MODERATE) (Primary | | | | [place] | [address] [place] [address] | Dx); HTN CKD UNS | | | | [address] | [address] | W/CKD STAGE I THRU | | | | [phone] | | STAGE IV/UNS; | | | [...] PSTRouted to Dr Pascal on 01/21/12 as requested.Teisha ctronically signed by Janice Lucero at 01/21/2012 [...] | | | | | | [place] [address] | | | | | | [phone] | | | | | | | [...] | 1.015 | | | | | [place], | | | | | | [facility], [...]
--- OUTSIDE RECORDS SUMMARY | ~2019-09-12 | XMS | Encounter Summary ---
Demographics + + + | Address | [address] | | | [place] [address] | + + + | Home Phone [...] [facility] | | | and [place] | + + + | Organization | [facility] [...] | | | | | [place] [address] | | + + + + + | Valentín Saleh | ECON | [address] | | | | | [place] [address] | | + + + + + | Roberto Carlos Lennon | LEVI | Unknown | | + + + + + Care Team Providers + +------+ + | Care Graduate School Dean Name | Role | Phone | + [...] + + | 07/09/ | Office | [facility] | Glenn Miramontes | Chronic pain of left | | 2016 | Visit | PHYSIATRY [address] | MD Maurice [address] | ankle (Primary Dx); | | | | [address] | [address] [place] | Post-traumatic | | | | [place] | [address] | osteoarthritis of | | | | [address] | | left ankle | | | | [phone] | | | +--------+---------+ + + + [...] of the procedure you must provide a vending route driver to take you home. 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 She has appropriate fund of knowledge [...] | | | | | | [place] [address] | | | | | | [phone] | | | | | | | [...] PAIN AND POST-TRAUMATIC ARTHRITIS Alyson Leyva | [facility] | | Saji presents to the fluoroscopy suite for a | [facility] | | fluoroscopically-guided left intraarticular ankle injection [...] [address] | [place] | [phone] | | [facility] | | [address] | | | - IMAGING | | | | + + + + + documented in this encounter Visit Diagnoses + + | Diagnosis | + + | Chronic pain of left ankle - Primary | + + | Post-traumatic osteoarthritis of left ankle | + + documented in this encounter
--- OUTSIDE RECORDS SUMMARY | ~2019-09-12 | XMS | Encounter Summary ---
Demographics + + + | Address | [address] | | | [place] [address] | + + + | Home Phone [...] Author | [facility] | | | and [place] | + + + | Organization | [facility] | | [...] | | | | | [place] [address] | | + + + + + | Valentín Saleh | ECON | [address] | | | | | [place] [address] | | + + + + + | Roberto Carlos Lennon | LEVI | Unknown | | + + + + + Care Team Providers + +------+ + | Care Machine Design Engineer Name | Role | Phone | [...] | 12/23/ | Refill | [facility] | Francois Pascal, | Medication Refill; | | 2018 | | [facility] [place] | [address] | Medication Refill | | | | [address] | [address] [place], | | | | | [place] | [place] [address] | | | | | [address] | [phone] | | | | | [phone] | | | +--------+--------+ + + + [...] | | | | | | [place] [address] | | | | | | [phone] | | | | | | | | +--------+---------+ + + + documented as of this encounter Visit Diagnoses Not on filedocumented in this encounter"
--- OUTSIDE RECORDS SUMMARY | ~2019-09-12 | XMS | Encounter Summary ---
Demographics + + + | Address | [address] | | | [place] [address] | + + + | Home Phone [...] + | Author | [facility] | | | and [place] | + + + | Organization | [facility] | | [...] | | | | | [place] [address] | | + + + + + | Valentín Saleh | ECON | [address] | | | | | [place] [address] | | + + + + + | Roberto Carlos Lennon | LVEI | [place] | | + + + + + Care Team Providers + +------+ + | Care Core Machine Operator Name | Role | Phone | + +------+ + PCP | Unavailable | + +------+ + Encounter Details +--------+ + + + + | Date | Type | Department | Care Team | Description | +--------+ + + + + | 09/09/ | Hospital | [facility] | | | | 2006 | Encounter | MED CTR LABORATORY | | | | | | [address] | | | | | | [place] | | | | | | [address] | | | | | | [phone] | | | +--------+ + + + [...] | | | | | | [place] [address] | | | | | | [phone] | | | | | | | | +--------+---------+ + + + documented as of this encounter Visit Diagnoses Not on filedocumented in this encounter"
--- OUTSIDE RECORDS SUMMARY | ~2019-09-12 | XMS | Encounter Summary ---
Demographics + + + | Address | [address] | | | [place] [address] | + + + | Home Phone [...] | Author | [facility] | | | and Clarkeana | + + + | Organization | [facility] [...] | | | | | [place] [address] | | + + + + + | Valentín Saleh | ECON | [address] | | | | | [place] [address] | | + + + + + | Roberto Carlos Lennon | LEVI | Unknown | | + + + + + Care Team Providers + +------+ + | Care Local Hazmat Driver Name | Role | Phone | + +------+ + | Francois Pascal MD | PCP | | + +------+ + Encounter Details +--------+ + + + + | Date | Type | Department | Care Team | Description | +--------+ + + + + | 02/26/ | [facility] | [facility] | Francois Pascal, | ARTHRITIS, CHRONIC | | 2013 | Encounter | MED CTR LABORATORY | [address] | | | | | [address] [place] | [address] [place], | | | | | [place], [place] | [place] [address] | | | | | [address] | [phone] | | | | | [phone] | | | +--------+ + + + [...] | | | | | | [place] [id number] | | | | | | [phone] | | | | | | | [...] | [facility] | [address] | [place] | [phone] | | [facility] | | [address] | | | - LABORATORY | | | | + + + + + | [facility] | [address] | [place], [place] | | | [facility] | | [id number] | | | - [...] | [facility] | [address] | [place] | [phone] | | [facility] | | [address] | | | - LABORATORY | | | | + + + + + | [facility] | [address] | [place], [place] | | | [facility] | | [id number] | | | - LABORATORY | | | | + + + + + documented in this encounter Visit Diagnoses + + | Diagnosis | + + | ARTHRITIS, CHRONIC Arthropathy, unspecified, site unspecified | + + documented in this encounter"
--- OUTSIDE RECORDS SUMMARY | ~2019-09-12 | XMS | Encounter Summary ---
Demographics + + + | Address | [address] | | | [place] [address] | + + + | Home Phone [...] + | Author | [facility] | | | and [place]ana | + + + | Organization | [facility] | | [...] | | | | | [place] [address] | | + + + + + | Valentín Saleh | ECON | [address] | | | | | [place] [address] | | + + + + + | Roberto Carlos Lennon | LEVI | Unknown | | + + + + + Care Team Providers + +------+ + | Care Auto Parts Professional Name | Role | Phone | [...] + + | 01/31/ | Telephone | [facility] | Stephenie Paul, | Lab Order (pt due | | 2017 | | CARDIOLOGY [address] | [address] | for labs prior to | | | | [place], | [place], | appt.) | | | | [place] [address] | [place] [address] | | | | | [phone] | [phone] | | | | | | | [...] at 8:01 elephone Encounter - Marisabel Haile, Animal Pathology Teacher - 01/31/2018 4:50 PM PSTPatients voicemail i [...] | | | | | | [place] [address] | | | | | | [phone] | | | | | | | [...] + + | [facility] | [address] [facility] [address] | [place] | [phone] | | [facility] | | [address] | | | [facility] | | | | + + + + + documented in this encounter Visit Diagnoses + + | Diagnosis | + + | Hyperlipidemia, mixed - Primary Mixed hyperlipidemia | + + | Coronary artery disease involving [place] coronary artery of [place] heart without | | angina pectoris | + + documented in this encounter"
--- OUTSIDE RECORDS SUMMARY | ~2019-09-12 | XMS | Encounter Summary ---
Demographics + + + | Address | [address] | | | [place] [address] | + + + | Home Phone [...] | Author | [facility] | | | and [place] | + + + | Organization | [facility] | [...] | | | | | [place] [address] | | + + + + + | Valentín Saleh | ECON | [address] | | | | | [place] [address] | | + + + + + | Roberto Carlos Lennon | LEVI | Unknown | | + + + + + Care Team Providers + +------+ + | Care Patient Safety Tech Name | Role | Phone | [...] (Primary Dx) | | | | [address] [facility] [address] | [address] [facility] | | | | | [place], [place] | [address] [place] | | | | | [address] | [address] | | | | | [phone] | | | +--------+ + + + [...] | | | | | | [place] [address] | | | | | | [phone] | | | | | | | | +--------+---------+ + + + documented as of this encounter Visit Diagnoses + + | Diagnosis | + + | Vitamin D deficiency - Primary Unspecified vitamin D deficiency | + + documented in this encounter"
--- OUTSIDE RECORDS SUMMARY | ~2019-09-12 | XMS | Encounter Summary ---
Demographics + + + | Address | [address] | | | [place] [address] | + + + | Home Phone | | + + + | Preferred Language | Unknown | + + + | Marital Status | Single | + + + | Jehovah'S Witness Affiliation | UNK | + + + | Race | White | + + + | Ethnic Group | Not or | + + + Author + + + | Author | [facility] | + + + | Organization | [facility] | + + + | Address | Unknown | + + + | Phone | Unavailable | + + + Support + + + + + | Name | Relationship | Address | Phone | + + + + + | Sigrid Lennon | LEVI | [address] | | | | | [place] [address] | | + + + + + | None None | ECON | Unknown | Unavailable | + + + + + Care Team Providers + +------+ + | Care Control Systems Eng Name | Role | Phone | + [...] as of this encounter Progress Notes Interface, Nurses Director In - 01/17/2005 5:01 AM [facility] [id number] RAD[facility] Date: 01/05/2005 Clinic: [...] definitely be done in her hometown in [place]. We will talk to the patient in approximately 3 weeks' time to see how this treatment has benefited her. The patient was seen in clinic with Dr.Peter Blankenship, who also examined the patient and formulated the above plan. Clayton Burton M.D. [place] / [id number] / [id number] / [id number] / [id number] Electronically signed by Fabio Blankenship 01-16-2005 03:26:31 PM documented i n this encounter Plan of Treatment Not on filedocumented as of this encounter Visit Diagnoses Not on filedocumented in this encounter"
--- OUTSIDE RECORDS SUMMARY | ~2019-09-12 | XMS | Encounter Summary ---
Demographics + + + | Address | [address] | | | [place] [address] | + + + | Home Phone [...] + | Author | [facility] | | | and Clarke[place] | + + + | Organization | [facility] [...] | | | | | [place] [address] | | + + + + + | Valentín Saleh | ECON | [address] | | | | | [place] [address] | | + + + + + | Roberto Carlos Lennon | LEVI | Unknown | | + + + + + Care Team Providers + +------+ + | Care Cabin Worker Name | Role | Phone | [...] + | 03/06/ | Telephone | [facility] | Francois Pascal, | Results | | 2012 | | MEDICINE [address] | [address] | | | | | AVE [place], | [address] [place], | | | | | [place] [address] | [place] [address] | | | | | [phone] | [phone] | | | | | | | [...] PSTTelephone Encounter - Caprice Rodriguez Master of Offbeat Guides - 03/06/2013 9:11 AM PS TLeft a [...] | | | | | | [place] [address] | | | | | | [phone] | | | | | | | | +--------+---------+ + + + documented as of this encounter Visit Diagnoses Not on filedocumented in this encounter"
--- OUTSIDE RECORDS SUMMARY | ~2019-09-12 | XMS | Encounter Summary ---
Demographics + + + | Address | [address] | | | [place] [address] | + + + | Home Phone [...] | Author | [facility] | | | and [place] | + + + | Organization | [facility] [...] | | | | | [place] [address] | | + + + + + | Valentín Saleh | ECON | [address] | | | | | [place] [address] | | + + + + + | Roberto Carlos Lennon | LEVI | Unknown | | + + + + + Care Team Providers + +------+ + | Care Griddle Attendant Name | Role | Phone | [...] + | 07/25/ | Office | [facility] | Francois Pascal, | Diabetes mellitus | | 2018 | Visit | MEDICINE [address] | [address] | due to underlying | | | | AVE [place], | [address] [place], | condition with | | | | [place] [address] | [place] [address] | hyperglycemia, with | | | | [phone] | [phone] | long-term current | | | | [...] less confused. There is no burning with Cureatr. Pt denies any confusion. Her states her [...] VSD Father 50 Pneumonia Family Hx of [place]'s chorea Sister and 2 brothers: CAD, Aiarm's Disease to [place] - with 2 Healthy [...] | | | | | | [place] [address] | | | | | | [phone] | | | | | | | [...]
--- OUTSIDE RECORDS SUMMARY | ~2019-09-12 | XMS | Encounter Summary ---
Demographics + + + | Address | [address] | | | [place] [address] | + + + | Home Phone [...] | Author | [facility] | | | and [place] | + + + | Organization | [facility] | | [...] | | | | | [place] [address] | | + + + + + | Valentín Saleh | ECON | [address] | | | | | [place] [address] | | + + + + + | Roberto Carlos Lennon | LEVI | Unknown | | + + + + + Care Team Providers + +------+ + | Care Supervisor Files Name | Role | Phone | + [...] + + | 02/07/ | Office | [facility] | Francois Pascal, | Type 2 diabetes | | 2018 | Visit | MEDICINE [place] | [address] | mellitus with | | | | [address] | [address] [place], | hyperglycemia, with | | | | [place] | [place] [address] | long-term current | | | | [address] | [phone] | use of insulin (HCC) | | | | [phone] | | (Primary Dx); Mild | | [...] VSD Father 50 Pneumonia Family Hx of Sarpy's chorea Sister and 2 brothers: CAD, Airam's Disease to [place] - with 2 Healthy Children No kidney disease in family. Social History: Born in [facility] for 46 years. and Remarried 2 sons [...] | | | | | | [place] [address] | | | | | | [phone] | | | | | | | [...]
--- OUTSIDE RECORDS SUMMARY | ~2019-09-12 | XMS | Encounter Summary ---
Demographics + + + | Address | [address] | | | [place] [address] | + + + | Home Phone [...] + | Author | [facility] | | | and [place] | + + + | Organization | [facility] | [...] | | | | | [place] [address] | | + + + + + | Valentín Saleh | ECON | [address] | | | | | [place] [address] | | + + + + + | Roberto Carlos Lennon | LEVI | Unknown | | + + + + + Care Team Providers + +------+ + | Care General Maintenance Helper Name | Role | Phone [...] [address] | | | | | [address] [facility] [address] | [address] [facility] | | | | | [place], [place] | [address] | | | | | [address] | [address] | | | | | [phone] | | | +--------+--------+ + + + [...] | | | | | | [place] [address] | | | | | | [phone] | | | | | | | | +--------+---------+ + + + documented as of this encounter Visit Diagnoses Not on filedocumented in this encounter"
--- OUTSIDE RECORDS SUMMARY | ~2019-09-12 | XMS | Encounter Summary ---
Demographics + + + | Address | [address] | | | [place] [address] | + + + | Home Phone [...] [facility] | | | and [place] | + + + | Organization | [facility] [...] + | Valentín Saleh | ECON | [phone] | | | | | [place] [address] | | + + + + + | Roberto Carlos Lennon | LEVI | Unknown | | + + + + + Care Team Providers + +------+ + | Care Covering Machine Operator Name | Role | Phone [...] | MEDICINE [address] | [address] | | | | | [place], | [address] [place], | | | | | [place] [address] | [place] [address] | | | | | [phone] | [phone] | | | | | | | [...] | | | | | | [place] [address] | | | | | | [phone] | | | | | | | | +--------+---------+ + + + documented as of this encounter Visit Diagnoses Not on filedocumented in this encounter"
--- OUTSIDE RECORDS SUMMARY | ~2019-09-12 | XMS | Encounter Summary ---
Demographics + + + | Address | [address] | | | [place] [address] | + + + | Home Phone [...] | [facility] | | | and [place] | + + + | Organization | [facility] | | [...] | | | | | [place] [address] | | + + + + + | Valentín Saleh | ECON | [address] | | | | | [place] [address] | | + + + + + | Roberto Carlos Lennon | LEVI | Unknown | | + + + + + Care Team Providers + +------+ + | Care Senior Visual Designer Name | Role | Phone [...] + + | 08/31/ | Office | [facility] | [place], | CHRONIC KIDNEY | | 2012 | Visit | NEPHROLOGY [address] | [address] | DISEASE STAGE III | | | | [address] | [address] | (MODERATE) (Primary | | | | [place] | [address] [place] [address] | Dx); HTN CKD UNS | | | | [address] | [address] | W/CKD STAGE I THRU | | | | [phone] | | STAGE IV/UNS; | | | [...] understanding of above plan. CC: Francois Pascal [facility] Review of Systems Physical Exam docunara [...] | | | | | | [place] [address] | | | | | | [phone] | | | | | | | [...] | 1.005 | | | | | [place], | | | | | | UA, [...]
--- OUTSIDE RECORDS SUMMARY | ~2019-09-12 | XMS | Encounter Summary ---
Demographics + + + | Address | [address] | | | [place] [address] | + + + | Home Phone [...] Author | [facility] | | | and [place] | + + + | Organization | [facility] [...] | | | | | [place] [address] | | + + + + + | Valentín Saleh | ECON | [address] | | | | | [place] [address] | | + + + + + | Roberto Carlos Lennon | LEVI | Unknown | | + + + + + Care Team Providers + +------+ + | Care Box Toe Cutter Name | Role | Phone | [...] Refill | | 2013 | | MEDICINE [place] | [address] | | | | | [address] | [address] [place], | | | | | [place] | [place] [address] | | | | | [address] | [phone] | | | | | [phone] | | | +--------+--------+ + + + [...] | | | | | | [place] [address] | | | | | | [phone] | | | | | | | | +--------+---------+ + + + documented as of this encounter Visit Diagnoses Not on filedocumented in this encounter"
--- OUTSIDE RECORDS SUMMARY | ~2019-09-12 | XMS | Encounter Summary ---
Demographics + + + | Address | [address] | | | [place] [address] | + + + | Home Phone [...] Author | [facility] | | | and [place] | + + + | Organization | [facility] [...] | | | | | [place] [address] | | + + + + + | Valentín Saleh | ECON | [address] | | | | | [place] [address] | | + + + + + | Roberto Carlos Lennon | LEVI | Unknown | | + + + + + Care Team Providers + +------+ + | Care Character Actor Name | Role | Phone | + [...] + | 03/28/ | Telephone | [facility] | Francois Pascal, | Medication | | 2017 | | MEDICINE [address] [place] [address] | [address] | Management | | | | [address] [place], | [address] [place], | | | | | [place] [address] | [place] [address] | | | | | [phone] | [phone] | | | | | | | [...] | | | | | | [place] [address] | | | | | | [phone] | | | | | | | | +--------+---------+ + + + documented as of this encounter Visit Diagnoses Not on filedocumented in this encounter"
--- OUTSIDE RECORDS SUMMARY | ~2019-09-12 | XMS | Encounter Summary ---
Demographics + + + | Address | [address] | | | [place] [address] | + + + | Home Phone [...] | Author | [facility] | | | and [place] | + + + | Organization | [facility] [...] | | | | | [place] [address] | | + + + + + | Valentín Saleh | ECON | [address] | | | | | [place] [address] | | + + + + + | Roberto Carlos Lennon | LEVI | Unknown | | + + + + + Care Team Providers + +------+ + | Care Bowl Turner Name | Role | Phone | + +------+ + | Francois Pascal MD | PCP | | + +------+ + Encounter Details +--------+ + + + + | Date | Type | Department | Care Team | Description | +--------+ + + + + | 03/05/ | [facility] | [facility] | Francois Pascal, | | | 2012 | Encounter | MED CTR XRAY [address] | [address] | | | | | [place] | [address] [place], | | | | | [place] [address] | [place] [address] | | | | | [phone] | [phone] | | | | | | | [...] | | | | | | [place] [address] | | | | | | [phone] | | | | | | | [...] Performed At | + + + | [facility] | [facility] | | Department [address] [place] [address] | [facility] | | [ rep ct street[address]] [ rep ct [facility] | | st zip] Signed | - IMAGING | | | | | Patient Name: ALYSON LENNON Physician: | | | SIMONE.01 : 1930 Age: 82 Sex: F Unit #: [id number] | | | Exam Date: 03/05/13 Location: [facility] | | | Report #: [id number] Page: | | | %(RAD)RES..mtdd.print.filter("pg") of %(RAD) | | | RES..mtdd.print.filter("tpg") | | | | | | Accession Number: [id number] | | | DIGITAL MAMMOGRAM WITH COMPUTER [...] Transcribed Date/Time: 03/06/2013 08:40 | | | Clinical Research Director: <<Signature on File>> | | | | | | Rafi De La Fuente MD03/06/13 1021 <Electronically signed by | | | Rafi De La Fuente MD> Rafi De La Fuente MD 03/06/13 | | | 0835 Clinical Research Director: [facility] Dyrzegdfppdjs33/31/13 0840 | | | | | + + + + + + + + | Performing | Address | City/State/Zipcode | Phone Number | | Organization | | | | + + + + + | [facility]A [facility] | [address] | [place] | [phone] | | [facility] | | [address] | | | - IMAGING | | | | + + + + + documented in this encounter Visit Diagnoses Not on filedocumented in this encounter
--- OUTSIDE RECORDS SUMMARY | ~2019-09-12 | XMS | Encounter Summary ---
Demographics + + + | Address | [address] | | | [place] [address] | + + + | Home Phone [...] | [facility] | | | and [place] | + + + | Organization | [facility] [...] | | | | | [place] [address] | | + + + + + | Valentín Saleh | ECON | [address] | | | | | [place] [address] | | + + + + + | Roberto Carlos Lennon | LEVI | Unknown | | + + + + + Care Team Providers + +------+ + | Care Mid Level Provider Name | Role | Phone | + +------+ + | Francois Pascal MD | PCP | | + +------+ + Encounter Details +--------+ + + + + | Date | Type | Department | Care Team | Description | +--------+ + + + + | 01/19/ | Hospital | [facility] | [place], | CHRONIC KIDNEY | | 2016 | Encounter | MED CTR LABORATORY | [address] | DISEASE STAGE III | | | | [address] [place] | [address] [facility] | (MODERATE) | | | | [place] | [address] [place] | | | | | [address] | [address] | | | | | [phone] | | | +--------+ + + + [...] | | 0 | | | | [address] | mouth Daily. | | | | [...] | | | | | | [place] [address] | | | | | | [phone] | | | | | | | [...] + | [facility] | [address] | [place] | [phone] | | [facility] | | [address] | | | - LABORATORY | | [...] [address] | [place] | [phone] | | [facility] | | [address] | | | - LABORATORY | | [...] mL/min/1.73m2 | [facility] | | | [facility] | | | MEDICAL | | | [...] ST. | [address] | [place] | [phone] | | [facility] | | [address] | | | - LABORATORY | | | | + + + + + documented in this encounter Visit Diagnoses + + | Diagnosis | + + | CHRONIC KIDNEY DISEASE STAGE III (MODERATE) Chronic kidney disease, Stage III | | (moderate) | + + documented in this encounter"
--- OUTSIDE RECORDS SUMMARY | ~2019-09-12 | XMS | Encounter Summary ---
Demographics + + + | Address | [address] | | | [place] [address] | + + + | Home Phone [...] | Author | [facility] | | | and [place] | + + + | Organization | [facility] [...] | | | | | [place] [address] | | + + + + + | Valentín Saleh | ECON | [address] | | | | | [place] [address] | | + + + + + | Roberto Carlos Lennon | LEVI | Unknown | | + + + + + Care Team Providers + +------+ + | Care Lace Sewer Name | Role | Phone | [...] | | MD Jennifer | [address] | | | | | Hypertension | [address] | [place], | | | | | , renal | [address] | [place] | | | | | disease, | [place], | [address] | | | | | stage 1-4 or | [place] [address] | Phone: | | | | | unspecified | Phone: | [phone] | | | | | chronic | [phone] | Fax: | | | | | kidney | Fax: | [phone] | | | | | disease | [phone] | | | | | | Essential [...] | | | | | | Complete [place] | | | | | | | ECHO HEART | | | | | | | XTHOJUNO,CO | | | | | | | MPLETE W | | | | | | | [place]OPPL[place] | | | | | | | [...] | CARDIOLOGY [address] | MD [address] | details) | | | | [place], | [place], | | | | | [place] [address] | [place] [address] | | | | | [phone] | [phone] | | | | | | | [...] the Care Team. Echo report routed per [employer] routing. Left message on [employer]ru[employer] for Myesha at [facility] that it has been sent. .............................. .............Jessica Saucedo RN on 03/11/16 at 13:27 elephone Encounter - Jessica Saucedo RN - 03/10/2016 11:05 AM PSTEcho is scheduled for 03/11/16 .............. .............................Jessica Saucedo RN on 03/10/16 at 11:05 elephone Encounter - Jessica Saucedo RN - 03/09/2016 4:35 PM PSTOrder entered into [employer]. Alyson is notified, I forgot to put [...] RN - 03/09/2016 2:15 PM PSTKathy with [facility], Dr Ochoa, call ed today and [...] | | | | | | [place] [address] | | | | | | [phone] | | | | | | | [...] Number BRIDGET Patient Number | Andrei 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 | | | JENNIFER PAUL MD Gender [...] | | | EF | | | Gucngeyaz42% Left Ventricle Diastolic Dimension: 4.48 cm | [...] Volume: 55.29 ml | | | EF Lftjyzkdp72% | | | | | | Left [...] Room Number BRIDGET Patient | | Number [id number] Date of Study 03/11/2016 Visit Number [id number] | | Referring Physician BEVERLY RODRIGUEZ Number Date of | | 1930 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 | [address] | [place] | [phone] | | [facility] | | [address] | | | - IMAGING | | [...]
--- OUTSIDE RECORDS SUMMARY | ~2019-09-12 | XMS | Encounter Summary ---
Demographics + + + | Address | [address] | | | [place] [address] | + + + | Home Phone [...] | [facility] | | | and [place] | + + + | Organization | [facility] [...] | | | | | [place] [address] | | + + + + + | Valentín Saleh | ECON | [address] | | | | | [place] [address] | | + + + + + | Roberto Carlos Lennon | LEVI | Unknown | | + + + + + Care Team Providers + +------+ + | Care Zyglo Inspector Name | Role | Phone | [...] | 08/12/ | Refill | [facility] [place] | Stephenie Paul, | Medication Refill | | 2016 | | CARDIOLOGY [address] | MD [address] | | | | | [place], | [place], | | | | | [place] [address] | [place] [address] | | | | | [phone] | | | | | | | [...] | | | | | | [place], | | | | | | [place] [address] | | | | | | [phone] | | | | | | | | +--------+---------+ + + + documented as of this encounter Visit Diagnoses Not on filedocumented in this encounter"
--- OUTSIDE RECORDS SUMMARY | ~2019-09-12 | XMS | Encounter Summary ---
Demographics + + + | Address | [address] | | | [place] [address] | + + + | Home Phone [...] | Sigrid Lennon | ECON | [address] | | | | | [place] [address] | | + + + + + | Valentín Saleh | ECON | [address] | | | | | [place] [address] | | + + + + + | Roberto Carlos Lennon | LEVI | Unknown | | + + + + + Care Team Providers + +------+ + | Care Account Administrator Name | Role | Phone | [...] Left ankle | [place], | [address] | | | | | pain | Glenn Richards MD | [place], | | | | | Procedures | [address] | [place] | | | | | CT | [facility] | [address] | | | | | ARTHROCENTES | [place], [place] | Phone: | | | | | [place] | [address] | [phone] | | | | | ASPIR&/INJ | Phone: | Fax: | | | | | MAJOR | [phone] | [phone] | | | | | JT/BURSA W/O | Fax: | | | | | | [place] CT | [phone] | | | | | | TRIAMCINOLON | | | | | | | E ACET INJ | | | | | | | NOS, 10 MG | | | | | | | CT | | | | | | | [...] + + | 07/14/ | Hospital | [facility] | Glenn Miramontes | 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 | [place] | [phone] | | [facility] | | [address] | | | - IMAGING | | [...]
--- OUTSIDE RECORDS SUMMARY | ~2019-09-12 | XMS | Encounter Summary ---
Demographics + + + | Address | [address] | | | [place] [address] | + + + | Home Phone [...] + | Author | [facility] | | | and [place] | + + + | Organization | [facility] [...] | | | | | [place] [address] | | + + + + + | Valentín Saleh | ECON | [address] | | | | | [place] [address] | | + + + + + | Roberto Carlos Lnenon | LEVI | Unknown | | + + + + + Care Team Providers + +------+ + | Care Business Operations Director Name | Role | Phone [...] Refill | | 2012 | | MEDICINE [facility] [address] | | | | | | [place], | | | | | | [place] [address] | | | | | | [phone] | | | +--------+--------+ + + + [...] | | | | | | [place] [address] | | | | | | [phone] | | | | | | | [...] + | [facility] | [address] | [place], [place] | [phone] | | [facility] | | [address] | | | - LABORATORY | | | | + + + + + | [facility] | [address] | [place], [place] | | | [facility] | | [address] [place] [address] | | | - LABORATORY | | | | + + + + + documented in this encounter Visit Diagnoses + + | Diagnosis | + + | ARTHRITIS, CHRONIC - Primary Arthropathy, unspecified, site unspecified | + + documented in this encounter"
--- OUTSIDE RECORDS SUMMARY | ~2019-09-12 | XMS | Encounter Summary ---
Demographics + + + | Address | [address] | | | [place] [address] | + + + | Home Phone [...] | | | | | [place] [address] | | + + + + + | Valentín Saleh | ECON | [phone] | | | | | [place] [address] | | + + + + + | Roberto Carlos Lennon | LEVI | [place] | | + + + + + Care Team Providers + +------+ + | Care Ear Muff Assembler Name | Role | Phone | + +------+ + PCP | Unavailable | + +------+ + Encounter Details +--------+ + + + + | Date | Type | Department | Care Team | Description | +--------+ + + + + | 12/23/ | Hospital | [facility] | | | | 2006 | Encounter | MED CTR LABORATORY | | | | | | [address] | | | | | | [place] | | | | | | [address] | | | | | | [phone] | | | +--------+ + + + [...] | | | | | | [place] [address] | | | | | | [phone] | | | | | | | | +--------+---------+ + + + documented as of this encounter Visit Diagnoses Not on filedocumented in this encounter"
--- OUTSIDE RECORDS SUMMARY | ~2019-09-12 | XMS | Encounter Summary ---
Demographics + + + | Address | [address] | | | [place] [address] | + + + | Home Phone [...] Author | [facility] | | | and Clarkeana | + + + | Organization | [facility] | | [...] | | | | | [place] [address] | | + + + + + | Valentín Saleh | ECON | [address] | | | | | [place] [address] | | + + + + + | Roberto Carlos Lennon | LEVI | Unknown | | + + + + + Care Team Providers + +------+ + | Care Touch Up Painter Hand Name | Role | Phone | [...] + | 11/22/ | Telephone | [facility] | Francois Pascal, | Imaging Only | | 2017 | | MEDICINE [place] | [address] | | | | | [address] | [address] [place], | | | | | [place] | [place] [address] | | | | | [address] | [phone] | | | | | [phone] | | | +--------+ + + + [...] - 11/22/2017 9:30 AM PDTTelephone call to [facility]. Voice mail, left message to call back.Electronically [...] soon enough. Please call Mariposa to advise, [phone]. 18 8:45 AM PDTdocumented in this encounter [...] | | | | | | [place] [address] | | | | | | [phone] | | | | | | | | +--------+---------+ + + + documented as of this encounter Visit Diagnoses Not on filedocumented in this encounter"
--- OUTSIDE RECORDS SUMMARY | ~2019-09-12 | XMS | Encounter Summary ---
Demographics + + + | Address | [address] | | | [place] [address] | + + + | Home Phone [...] + | Author | [facility] | | | and [place] | + + + | Organization | [facility] | [...] | | | | | [place] [address] | | + + + + + | Valentín Saleh | ECON | [phone] | | | | | [place] [address] | | + + + + + | Roberto Carlos Lennon | LEVI | [place] | | + + + + + Care Team Providers + +------+ + | Care Station Agent Name | Role | Phone | + +------+ + PCP | Unavailable | + +------+ + Encounter Details +--------+ + + + + | Date | Type | Department | Care Team | Description | +--------+ + + + + | 10/29/ | Hospital | [facility] | | | | 2002 | Encounter | MED CTR XRAY [address] | | | | | | [place] | | | | | | [place] [address] | | | | | | [phone] | | | +--------+ + + + [...] | | | | | | [place] [address] | | | | | | [phone] | | | | | | | | +--------+---------+ + + + documented as of this encounter Visit Diagnoses Not on filedocumented in this encounter"
--- OUTSIDE RECORDS SUMMARY | ~2019-09-12 | XMS | Encounter Summary ---
Demographics + + + | Address | [address] | | | [place] [address] | + + + | Home Phone [...] Author | [facility] | | | and [place]ana | + + + | Organization | [facility] | [...] | | | | | [place] [address] | | + + + + + | Valentín Saleh | ECON | [phone] | | | | | [place] [address] | | + + + + + | Roberto Carlos Lennon | LEVI | Unknown | | + + + + + Care Team Providers + +------+ + | Care Vocational Ed Instructor Name | Role | Phone | [...] + + | 11/01/ | Telephone | [facility] | Francois Pascal, | Medication Orders | | 2018 | | MEDICINE [place] | [address] | (Orders) | | | | [address] | [address], | | | | | [place] | [place] [address] | | | | | [address] | [phone] | | | | | [phone] | | | +--------+ + + + [...] PDTPaperwork has been faxed to [facility] Attn: Bridget TTelephone Encounter - Lisa [...] and high blood sugars. Instructions while at [facility] were the following: -Monitor blood glucose every morning and evening. -Notify physician of BG less than 60 or above 400. -Give Glucagon 1 unit IM for BG less than 60 and responsive. Do you want to continue with these directions? Please fax orders to Bridget at [phone]. Will need to print off all OTC meds. elephone Lisa Velasquez RN - 11/01/2018 11:27 AM PDTTried to call Rain back, but did n't get an answer. The orders that she is referring to, I believe, are the medications being [facility]. I had ordered the medications that she said she was absolutely out of on 10/25/2018 and ask ed one of our nurses here to send the rest to [facility] once we got the medication list. It looks like the medications have been pended, but not signed to go to [facility]. This will be completed today. There are A LOT of separate notes regarding the same issue on this patient making it diffic ult to sort through everything. There is conflicting information regarding the patients status One note talks about discharge orders from [facility] to [facility].-signed by Dr. Raheem viramontes Another note states the family home said she was not safe with them and that patient needed to be readmitted to [facility]. Signed by Dr. Thayer. When I called last week [facility]ep said that she was discharged ion 10/18/2018, but no ment ion of her readmit. I then called Bridget last week as well and she reports the patient is staying with them. El ectronically signed by Lisa Pittman RN at 11/01/2018 11:32 AM PDTTelephone Mili Aleman 11/01/2018 10:48 AM [facility]bo [facility] because she [...] | | | | | | [place] [address] | | | | | | [phone] | | | | | | | | +--------+---------+ + + + documented as of this encounter Visit Diagnoses Not on filedocumented in this encounter"
--- OUTSIDE RECORDS SUMMARY | ~2019-09-12 | XMS | Encounter Summary ---
Demographics + + + | Address | [address] | | | [place] [address] | + + + | Home Phone [...] Author | [facility] | | | and [place] | + + + | Organization | [facility] [...] | | | | | [place] [address] | | + + + + + | Valentín Saleh | ECON | [address] | | | | | [place] [address] | | + + + + + | Roberto Carlos Lennon | LEVI | Unknown | | + + + + + Care Team Providers + +------+ + | Care Entry Level Assistant Manager Name | Role | Phone | [...] + | 11/14/ | Telephone | [facility] | Francois Pascal, | Illness | | 2014 | | MEDICINE [address] | [address] | | | | | [address] [place], | [address] [place], | | | | | [place] [address] | [place] [address] | | | | | [phone] | [phone] | | | | | | | [...] | | | | | | [place] [address] | | | | | | [phone] | | | | | | | | +--------+---------+ + + + documented as of this encounter Visit Diagnoses Not on filedocumented in this encounter"
--- OUTSIDE RECORDS SUMMARY | ~2019-09-12 | XMS | Encounter Summary ---
Demographics + + + | Address | [address] | | | [place] [address] | + + + | Home Phone [...] Author | [facility] | | | and [place] | + + + | Organization | [facility] [...] | | | | | [place] [address] | | + + + + + | Valentín Saleh | ECON | [address] | | | | | [place] [address] | | + + + + + | Roberto Carlos Lennon | LEVI | Unknown | | + + + + + Care Team Providers + +------+ + | Care Regulatory Associate Name | Role | Phone | [...] | [address] | [address] | | | | | ([facility]) | [place] | [place], | | | | | | [place], [place] | [place] | | | | | | [address] | [address] | | | | | | Phone: | Phone: | | | | | | [phone] | [phone] | | | | | | Fax: | Fax: | | | | | | [phone] | [phone] | +--------+ + + + + + Reason for Visit +---------+ + | Reason | Comments | +---------+ + | Results | Lab | +---------+ + Encounter Details +--------+---------+ + + + | Date | Type | Department | Care Team | Description | +--------+---------+ + + + | 09/18/ | Office | [facility] | Francois Pascal, | HYPERTENSION NEC | | 2014 | Visit | MEDICINE [address] [place] [address] | [address] | (Primary Dx); | | | | AVE [place], | [address] [place], | CHRONIC KIDNEY | | | | [place] [address] | [place] [address] | DISEASE STAGE III | | | | [phone] | [phone] | (MODERATE); DM | | | | [...] It still feeling sore though. 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 CKD, She urinates normally. There is no [...] VSD Father 50 Pneumonia Family Hx of Rockland's chorea Sister and 2 brothers: CAD, Rockland's Disease to [place] - with 2 Healthy Children No kidney disease in family. Social History: Reviewed history from 08/11/2011 and no changes required: Born in [facility] for [...] | | | | | | [place] [address] | | | | | | [phone] | | | | | | | [...] - 1.030 | [facility] | | | [place], | | | [facility] | | [...] | | [place], | | | [facility] | | | Urine | | | [...] + | [facility] | [address] | [place], [place] | [phone] | | [facility] | | [address] | | | - LABORATORY | | | | + + + + + | [facility] | [address] | [place], [place] | | | [facility] | | [address] [place] [address] | | | - LABORATORY | | [...] + | [facility] | [address] | [place], [place] | [phone] | | [facility] | | [address] | | | - LABORATORY | | | | + + + + + | [facility] | [address] | [place], [place] | | | [facility] | | [address] | | [...] | Basophils | | K/uL | [facility] | | | [...] + | [facility] | [address] | [place] | [phone] | | [facility] | | [address] | | | - LABORATORY | | | | + + + + + | [facility] | [address] | [place] | | | [facility] | | [address], [facility] | | | - [...] mL/min/1.73m2 | [facility] | | | [facility] | RATE,ESTIMATED | | MEDICAL | | | | mL/min/1.75q2Pjlg than | | CENTER - | | [...] + | [facility] | [address] | [place], [place] | [phone] | | [facility] | | [address] | | | - LABORATORY | | | | + + + + + | [facility] | [address] | [place], [place] | | | [facility] | | [address] [place] [address] | | | - LABORATORY | | [...]
--- OUTSIDE RECORDS SUMMARY | ~2019-09-12 | XMS | Encounter Summary ---
Demographics + + + | Address | [address] | | | [place] [address] | + + + | Home Phone [...] + | Author | [facility] | | | and [place] | + + + | Organization | [facility] [...] | | | | | [place] [address] | | + + + + + | Valentín Saleh | ECON | [address] | | | | | [place] [address] | | + + + + + | Roberto Carlos Lennon | LEVI | Unknown | | + + + + + Care Team Providers + +------+ + | Care Soaker Soda Worker Name | Role | Phone | [...] | | 2018 | | [facility] | [address] | | | | | [address] | [address] [place], | | | | | [place] | [place] [address] | | | | | [address] | [phone] | | | | | [phone] | | | +--------+--------+ + + + [...] | | | | | | [place] [address] | | | | | | [phone] | | | | | | | [...]
--- OUTSIDE RECORDS SUMMARY | ~2019-09-12 | XMS | Encounter Summary ---
Demographics + + + | Address | [address] | | | [place] [address] | + + + | Home Phone [...] | Author | [facility] | | | and [place] | + + + | Organization | [facility] | [...] | | | | | [place] [address] | | + + + + + | Valentín Saleh | ECON | [address] | | | | | [place] [address] | | + + + + + | Roberto Carlos Lennon | LEVI | Unknown | | + + + + + Care Team Providers + +------+ + | Care Model Maker Scale Name | Role | Phone | + [...] + | 04/09/ | Telephone | [facility] | Tiffany Sanz, | TCM - Hosp FU | | 2019 | | MEDICINE [place]isha [place] | [place] | | | | | [place], | | | | | | [place] [address] | | | | | | [phone] | | | +--------+ + + + [...] for follow-up on discharge from: Inpatient Acute Hospital=[facility] Eligible for TCM Billing [place] [address]? YES DISCHARGING PHYSICIAN: Rosibel Aguilar MD Patient questions/concerns needing provider review: CALLED JUVE-CLINICAL RESOURCE MANAGER OF THE [facility] FOR THIS TCM CALL. SHE INFORMED ME THAT DR KIM AT THE [facility] ASSUMED CARE IN OCTOBER OF [...] Hospital Problems Diagnosis UTI (urinary tract infection) [facility] APPOINTMENT FOR 04/12/19 CANCELLED. documented in this [...] | | | | | | [place] [address] | | | | | | [phone] | | | | | | | | +--------+---------+ + + + documented as of this encounter Visit Diagnoses Not on filedocumented in this encounter"
--- OUTSIDE RECORDS SUMMARY | ~2019-09-12 | XMS | Encounter Summary ---
Demographics + + + | Address | [address] | | | [place] [address] | + + + | Home Phone [...] + | Author | [facility] | | | and [place]ana | + + + | Organization | [facility] | [...] | | | | | [place] [address] | | + + + + + | Valentín Saleh | ECON | [address] | | | | | [place] [address] | | + + + + + | Roberto Carlos Lennon | LEVI | Unknown | | + + + + + Care Team Providers + +------+ + | Care Net Repairer Name | Role | Phone | [...] + | 10/10/ | Telephone | [facility] | Francois Pascal, | Medication | | 2019 | | MEDICINE [place] | [address] | Management | | | | [address] | [address] [place], | | | | | [place] | [place] [address] | | | | | [address] | [phone] | | | | | [phone] | | | +--------+ + + + [...] PM PDTReceived phone call from [facility] at [facility] Patient [facility] Dr Pascal today and per [...] to replace the slidin g scale? FAX [phone] documented in thi s encounter Plan of [...] | | | | | | [place] [address] | | | | | | [phone] | | | | | | | | +--------+---------+ + + + documented as of this encounter Visit Diagnoses Not on filedocumented in this encounter"
--- OUTSIDE RECORDS SUMMARY | ~2019-09-12 | XMS | Encounter Summary ---
[...] + | Author | [facility] | | | and [place] | + + + | Organization | [facility] | | | and [place] | + + + | Address | Unknown | + + + | Phone | Unavailable | + + + Support + + + + + | Name | Relationship | Address | Phone | + + + + + | Sigrid Lennon | ECON | [address] | | | | | [place] [address] | | + + + + + | Valentín Saleh | ECON | [address] | | | | | [place] [address] | | + + + + + | Roberto Carlos Lennon | LEVI | [place] | | + + + + + Care Team Providers + +------+ + | Care Production Material Coordinator Name | Role | Phone | + +------+ + PCP | Unavailable | + +------+ + Encounter Details +--------+ + + + + | Date | Type | Department | Care Team | Description | +--------+ + + + + | 10/20/ | Hospital | [facility] | | | | 1999 | Encounter | MED CTR ICU [address] | | | | | | [place], | | | | | | [place] [address] | | | | | | [phone] | | | +--------+ + + + [...] | | | | | | [place] [address] | | | | | | [phone] | | | | | | | | +--------+---------+ + + + documented as of this encounter Visit Diagnoses Not on filedocumented in this encounter"
--- OUTSIDE RECORDS SUMMARY | ~2019-09-12 | XMS | Encounter Summary ---
Demographics + + + | Address | [address] | | | [place] [address] | + + + | Home Phone [...] Author | [facility] | | | and [place] | + + + | Organization | [facility] | | [...] | | | | | [place] [address] | | + + + + + | Valentín Saleh | ECON | [address] | | | | | [place] [address] | | + + + + + | Roberto Carlos Lennon | LEVI | [place] | | + + + + + Care Team Providers + +------+ + | Care Winder Contort Operator Name | Role | Phone | + +------+ + PCP | Unavailable | + +------+ + Encounter Details +--------+ + + + + | Date | Type | Department | Care Team | Description | +--------+ + + + + | 09/04/ | Hospital | [facility] | Francois Pascal, | | | 2008 | Encounter | MED CTR LABORATORY | [address] | | | | | [address] [place] | [address], | | | | | [place] | [place] [address] | | | | | [address] | [phone] | | | | | [phone] | | | +--------+ + + + [...] | | | | | | [place] [address] | | | | | | [phone] | | | | | | | | +--------+---------+ + + + documented as of this encounter Visit Diagnoses Not on filedocumented in this encounter"
--- OUTSIDE RECORDS SUMMARY | ~2019-09-12 | XMS | Encounter Summary ---
Demographics + + + | Address | [address] | | | [place] [address] | + + + | Home Phone [...] | | | | | [place] [address] | | + + + + + | Valentín Saleh | ECON | [address] | | | | | [place] [address] | | + + + + + | Roberto Carlos Lennon | LEVI | [place] | | + + + + + Care Team Providers + +------+ + | Care Plastics Technician Name | Role | Phone | + +------+ + PCP | Unavailable | + +------+ + Encounter Details +--------+ + + + + | Date | Type | Department | Care Team | Description | +--------+ + + + + | 02/24/ | Hospital | [facility] | Francois Pascal, | | | 2008 | Encounter | MED CTR LABORATORY | [address] | | | | | [address] [place] | [address] [place] [address], | | | | | [place] | [place] [address] | | | | | [address] | [phone] | | | | | [phone] | | | +--------+ + + + [...] | | | | | | [place] [address] | | | | | | [phone] | | | | | | | | +--------+---------+ + + + documented as of this encounter Visit Diagnoses Not on filedocumented in this encounter"
--- OUTSIDE RECORDS SUMMARY | ~2019-09-12 | XMS | Encounter Summary ---
Demographics + + + | Address | [address] | | | [place] [address] | + + + | Home Phone [...] Author | [facility] | | | and [place] | + + + | Organization | [facility] | | [...] | | | | | [place] [address] | | + + + + + | Valentín Saleh | ECON | [address] | | | | | [place] [address] | | + + + + + | Roberto Carlos Lennon | LEVI | Unknown | | + + + + + Care Team Providers + +------+ + | Care Surgical Elastic Knitter Name | Role | Phone | + [...] + | 10/12/ | Telephone | [facility] | Francois Pascal, | Paperwork; DME | | 2019 | | MEDICINE [place] | [address] | | | | | [address] | [address] [place], | | | | | [place] | [place] [address] | | | | | [address] | [phone] | | | | | [phone] | | | +--------+ + + + [...] PM PDTPaperwork was faxed a gain to [employer], this time to [facility] [place] at [phone] per their request. DWO and chart notes are at my desk. Holding in case anything needs to be corrected on form. elephone Kacy Goldberg Research Project Manager - 10/17/2018 3:10 PM PDTPaperwork faxed to [facility]. Called Kayla at [facility] but unable to reach her elephone Encounter - Ayanna Mederos RN - 10/17/2018 2:24 PM PDTReceived phone call from Kayla with [facility]. Asking if we have sent [facility] what they need to supply a bed and wheelchair for the patient, so that she can be [facility] [place]? Let her know that Dr Fran martins hasn't had a chance to address this yet. Kayla at [facility] would like a phone call to let her know when this has been sent to [facility]. She is at [phone], ext [phone] elephone Encount feliciano - Yamileth Bah RN - 10/17/2018 11:32 AM PDTSusie calls from Renee Giang to check on this. Patient discharging today so needs equipment MARIANNE. Please call Kayla when chart notes and DWO complete and faxed to [employer]. She can be reached at [phone] or [phone]. OK to leave message on [phone] ext if needed. elephone Kacy Goldberg, Research Project Manager - 10/17/2018 7:11 AM PDTIn regards to [...] why. elephone Encou nter - Kacy Delaney, Research Project Manager - 10/16/2018 3:44 PM PDTIn regards to the [facility], ANAI is wantintg the following: A.) [...] seen on 10/10/18. Please fax form to [phone].Electronically signed by Caprice Ashley RN at 10/12 [...] | | | | | | [place] [address] | | | | | | [phone] | | | | | | | | +--------+---------+ + + + documented as of this encounter Visit Diagnoses Not on filedocumented in this encounter"
--- OUTSIDE RECORDS SUMMARY | ~2019-09-12 | XMS | Encounter Summary ---
Demographics + + + | Address | [address] | | | [place] [address] | + + + | Home Phone [...] Author | [facility] | | | and Clarkeana | + + + | Organization | [facility] [...] | | | | | [place] [address] | | + + + + + | Valentín Saleh | ECON | [id number] | | | | | [place] [address] | | + + + + + | Roberto Carlos Lennon | LEVI | Unknown | | + + + + + Care Team Providers + +------+ + | Care Electrical Products Engineer Name | Role | Phone | [...] | 06/21/ | Refill | [facility] | Francois Pascal, | Medication Refill | | 2012 | | MEDICINE [place] | [address] | | | | | [address] | [address] [place], | | | | | [place] | [place] [address] | | | | | [address] | [phone] | | | | | [phone] | | | +--------+--------+ + + + [...] 2020 | Visit | | MD [address] | | | | | | [place], | | | | | | [place] [address] | | | | | | [phone] | | | | | | | [...] + | [facility] | [address] | [place] | [phone] | | [facility] | | [address] | | | - LABORATORY | | | | + + + + + | [facility] | [address] | [place], [place] | | | [facility] | | [id number] [place] [address] | | | - LABORATORY | | [...] | + + + + + | [facility] | [address] | [place] | [phone] | | [facility] | | [address] | | | - LABORATORY | | | | + + + + + | [facility] | [address] | [place], [place] | | | [facility] | | [address] [place] [address] | | | - LABORATORY | | [...] + | [facility] | [address] | [place] | [phone] | | [facility] | | [address] | | | - LABORATORY | | | | + + + + + | [facility] | [address] | [place] | | | [facility] | | [address] | | | - [...] | | Eosinophils | | | [facility] | | | | | | MEDICAL [...] [address] | [place] | [phone] | | [facility] | | [address] | | | - LABORATORY | | | | + + + + + | [facility] | [address] | [place] | | | [facility] | | [address] | | | - [...] | + + + + + | [facility] | [address] | [place], [place] | [phone] | | [facility] | | [address] | | | - LABORATORY | | | | + + + + + | [facility] | [address] | [place], [place] | | | [facility] | | [address] [place] [address] | | | - LABORATORY | | | | + + + + + documented in this encounter Visit Diagnoses + + | Diagnosis | + + | ARTHRITIS, CHRONIC - Primary Arthropathy, unspecified, site unspecified | + + documented in this encounter"
--- OUTSIDE RECORDS SUMMARY | ~2019-09-12 | XMS | Encounter Summary ---
Demographics + + + | Address | [address] | | | [place] [address] | + + + | Home Phone [...] | Author | [facility] | | | and Clarkeana | + + + | Organization | [facility] | [...] | | | | | [place] [address] | | + + + + + | Valentín Saleh | ECON | [id number] | | | | | [place] [address] | | + + + + + | Roberto Carlos Lennon | LEVI | Unknown | | + + + + + Care Team Providers + +------+ + | Care Safety Associate Name | Role | Phone | [...] + | 07/13/ | Telephone | [facility] | Francois Pascal, | Other | | 2016 | | MEDICINE [address] | [address] | | | | | [address] [place], | [address] [place] [address], | | | | | [place] [address] | [place] [address] | | | | | [phone] | [phone] | | | | | | | [...] PDTReceived a call from Andrei breen at [facility] just wanting to let Dr Pascal know that patient is to be admitted to [facility] from [facility] today following a left hip IM rodding. [...] | | | | | | [place] [address] | | | | | | [phone] | | | | | | | | +--------+---------+ + + + documented as of this encounter Visit Diagnoses Not on filedocumented in this encounter"
--- OUTSIDE RECORDS SUMMARY | ~2019-09-12 | XMS | Encounter Summary ---
Demographics + + + | Address | [address] | | | [place] [address] | + + + | Home Phone [...] + | Author | [facility] | | | and [place]ana | + + + | Organization | [facility] [...] | | | | | [place] [address] | | + + + + + | Valentín Saleh | ECON | [id number] | | | | | [place] [address] | | + + + + + | Roberto Carlos Lennon | LEVI | Jeyson | | + + + + + Care Team Providers + +------+ + | Care Nutrition Worker Name | Role | Phone | + +------+ + PCP | Unavailable | + +------+ + Encounter Details +--------+ + + + + | Date | Type | Department | Care Team | Description | +--------+ + + + + | 02/06/ | Hospital | [facility] | | | | 1997 | Encounter | MED CTR XRAY [address] | | | | | | [place] | | | | | | [place] [address] | | | | | | [phone] | | | +--------+ + + + [...] | | | | | | [place] [address] | | | | | | [phone] | | | | | | | | +--------+---------+ + + + documented as of this encounter Visit Diagnoses Not on filedocumented in this encounter"
--- OUTSIDE RECORDS SUMMARY | ~2019-09-12 | XMS | Encounter Summary ---
Demographics + + + | Address | [address] | | | [place] [address] | + + + | Home Phone [...] | Author | [facility] | | | and [place] | + + + | Organization | [facility] | | [...] | | | | | [place] [address] | | + + + + + | Valentín Saleh | ECON | [id number] | | | | | [place] [address] | | + + + + + | Roberto Carlos Lennon | LEVI | Unknown | | + + + + + Care Team Providers + +------+ + | Care Regional Director Name | Role | Phone | [...] + | 03/03/ | Telephone | [facility] | Francois Pascal, | Medication Prior | | 2014 | | MEDICINE [facility] [address] | [address] | Authorization (Needs | | | | [address] [place], | [address] [place], | paperwork faxed | | | | [place] [address] | [place] [address] | back to office.) | | | | [phone] | [phone] | | | | | | | [...] pproval notification Valid dates March-March 18, 2016 [employer] notified elephone Encounter - Kacy Boyd CMA - 03/17/2015 10:33 AM PSTReceived and filled prior authorization form. Ready to be faxed to [email or web address]. elephone Encounter - Kacy Boyd CMA - 03/06/2015 4:43 PM PSTPlaced call to [employer] and they will fax form to office. elephone Encounter - Janett Garcia - 03/03/2015 12:58 PM PST Contact/Caller: [email or web address] Customer Service/ Kina Contact Number: [phone] Provider/Nurse: Dr. Pascal/ Mildred Hamilton Bernie Reason for Call: Prior Authorization Paperwork for Methotrexate Last Appointment: 01-09-2015 Next Appointment: 04-14-2015 Kina from [email or web address] called to advise that they has [...] | | | | | | [place] [address] | | | | | | [phone] | | | | | | | | +--------+---------+ + + + documented as of this encounter Visit Diagnoses Not on filedocumented in this encounter"
--- OUTSIDE RECORDS SUMMARY | ~2019-09-12 | XMS | Encounter Summary ---
Demographics + + + | Address | [address] | | | [place] [address] | + + + | Home Phone [...] [facility] | | | and [place] | + + + | Organization | [facility] | [...] | | | | | [place] [address] | | + + + + + | Valentín Saleh | ECON | [id number] | | | | | [place] [address] | | + + + + + | Roberto Carlos Lennon | LEVI | Unknown | | + + + + + Care Team Providers + +------+ + | Care Clinical Nursing Manager Name | Role | Phone | [...] | 09/14/ | Refill | [facility] | Francois Pacsal, | Medication Refill | | 2012 | | MEDICINE [place] | [address] | | | | | [address] | [address] [place], | | | | | [place] | [place] [address] | | | | | [address] | [phone] | | | | | [phone] | | | +--------+--------+ + + + [...] | | | | | | [place] [address] | | | | | | [phone] | | | | | | | | +--------+---------+ + + + documented as of this encounter Visit Diagnoses Not on filedocumented in this encounter"
--- OUTSIDE RECORDS SUMMARY | ~2019-09-12 | XMS | Encounter Summary ---
Demographics + + + | Address | [address] | | | [place] [address] | + + + | Home Phone [...] + + | Author | [facility] | | | and [place] | + + + | Organization | [facility] | [...] | | | | | [place] [address] | | + + + + + | Valentín Saleh | ECON | [address] | | | | | [place] [address] | | + + + + + | Roberto Carlos Lennon | LEVI | Jeyson | | + + + + + Care Team Providers + +------+ + | Care Relief Man Name | Role | Phone | + +------+ + PCP | Unavailable | + +------+ + Encounter Details +--------+ + + + + | Date | Type | Department | Care Team | Description | +--------+ + + + + | 02/17/ | Hospital | [facility] | Francois Pascal, | | | 2008 | Encounter | MED CTR LABORATORY | [address] | | | | | [address] [place] | [address], | | | | | [place] | [place] [address] | | | | | [address] | [phone] | | | | | [phone] | | | +--------+ + + + [...] | | | | | | [place] [address] | | | | | | [phone] | | | | | | | | +--------+---------+ + + + documented as of this encounter Visit Diagnoses Not on filedocumented in this encounter"
--- OUTSIDE RECORDS SUMMARY | ~2019-09-12 | XMS | Encounter Summary ---
Demographics + + + | Address | [address] | | | [place] [address] | + + + | Home Phone [...] Author | [facility] | | | and [place] | + + + | Organization | [facility] | [...] | | | | | [place] [address] | | + + + + + | Valentín Saleh | ECON | [address] | | | | | [place] [address] | | + + + + + | Roberto Carlos Lennon | LEVI | Unknown | | + + + + + Care Team Providers + +------+ + | Care Group Dynamics Instructor Name | Role | Phone | [...] | | 2019 | | MEDICINE [place] | [address] | | | | | [address] | [address], | | | | | [place] | [place] [address] | | | | | [address] | [phone] | | | | | [phone] | | | +--------+--------+ + + + [...] | | | | | | [place] [address] | | | | | | [phone] | | | | | | | | +--------+---------+ + + + documented as of this encounter Visit Diagnoses Not on filedocumented in this encounter"
--- OUTSIDE RECORDS SUMMARY | ~2019-09-12 | XMS | Encounter Summary ---
Demographics + + + | Address | [address] | | | [place] [address] | + + + | Home Phone [...] | Author | [facility] | | | and [place]ana | + + + | Organization | [facility] [...] | | | | | [place] [address] | | + + + + + | Valentín Saleh | ECON | [address] | | | | | [place] [address] | | + + + + + | Roberto Carlos Lennon | LEVI | Unknown | | + + + + + Care Team Providers + +------+ + | Care Lab Coordinator Name | Role | Phone | [...] | 12/18/ | Refill | [facility] [place] [facility] | Francois Pascal, | Medication Refill | | 2015 | | [facility] | [address] | | | | | [address] | [address] [place], | | | | | [place] | [place] [address] | | | | | [address] | [phone] | | | | | [phone] | | | +--------+--------+ + + + [...] | | | | | | [place] [address] | | | | | | [phone] | | | | | | | | +--------+---------+ + + + documented as of this encounter Visit Diagnoses Not on filedocumented in this encounter"
--- OUTSIDE RECORDS SUMMARY | ~2019-09-12 | XMS | Encounter Summary ---
Demographics + + + | Address | [address] | | | [place] [address] | + + + | Home Phone [...] + | Author | [facility] | | | and [place] | + + + | Organization | [facility] [...] | | | | | [place] [address] | | + + + + + | Valentín Saleh | ECON | [address] | | | | | [place] [address] | | + + + + + | Roberto Carlos Lennon | LEVI | Jesyon | | + + + + + Care Team Providers + +------+ + | Care Regular Senior Care Provider Name | Role | Phone | + +------+ + PCP | Unavailable | + +------+ + Encounter Details +--------+ + + + + | Date | Type | Department | Care Team | Description | +--------+ + + + + | 06/27/ | Hospital | [facility] | | | | 1996 - | Encounter | MED CTR GENERIC IP | | | | | | CONV DEPT [address] | | | | 07/01/ | | [place], | | | | 1996 | | [place] [address] | | | | | | [phone] | | | +--------+ + + + [...] | | | | | | [place] [address] | | | | | | [phone] | | | | | | | | +--------+---------+ + + + documented as of this encounter Visit Diagnoses Not on filedocumented in this encounter"
--- OUTSIDE RECORDS SUMMARY | ~2019-09-12 | XMS | Encounter Summary ---
Demographics + + + | Address | [address] | | | [place] [address] | + + + | Home Phone [...] Author | [facility] | | | and [place]ana | + + + | Organization | [facility] | [...] | | | | | [place] [address] | | + + + + + | Valentín Saleh | ECON | [address] | | | | | [place] [address] | | + + + + + | Roberto Carlos Lennon | LEVI | Unknown | | + + + + + Care Team Providers + +------+ + | Care Construction Coordinator Name | Role | Phone | [...] [place] | | | | | | [address] | [address] | | | | | | Phone: | Phone: | | | | | | [phone] | [phone] | | | | | | Fax: | Fax: | | | | | | [phone] | [phone] | +--------+ + + + + + [...] [place], | | | | | [place] [address] | [place] [address] | | | | | [phone] | [phone] | | | | | | | [...] | | | | | | [place] [address] | | | | | | [phone] | | | | | | | [...]
--- OUTSIDE RECORDS SUMMARY | ~2019-09-12 | XMS | Encounter Summary ---
Demographics + + + | Address | [address] | | | [place] [address] | + + + | Home Phone [...] Author | [facility] | | | and Clarkeana | + + + | Organization | [facility] | | [...] | | | | | [place] [address] | | + + + + + | Valentín Saleh | ECON | [address] | | | | | [place] [address] | | + + + + + | Roberto Carlos Lennon | LEVI | Unknown | | + + + + + Care Team Providers + +------+ + | Care Buckle Strap Puncher Name | Role | Phone | + +------+ + | Francois Pascal MD | PCP | | + +------+ + Encounter Details +--------+ + + + + | Date | Type | Department | Care Team | Description | +--------+ + + + + | 03/06/ | Hospital | [facility] | Francois Pascal, | Other screening | | 2013 | Encounter | MED CTR MAMMOGRAPHY | [address] | mammogram | | | | [address] | [address], | | | | | [place] | [place] [address] | | | | | [address] | [phone] | | | | | [phone] | | | +--------+ + + + [...] TABLET BY | 30 | 6 | 02/21/20 | | | 500 mg CR tablet | MOUTH EVERY DAY | tablet | | 14 | 5 | + + + +---------+ + + | NOVOLOG 100 | INJECT 18 UNITS IN | 20 mL | 3 | 03/01/20 | | | UNIT/ML injection | THE MORNING, 23 | | | 14 | 5 | | | UNITS BEFORE LUNCH | | | | | | | AND 28 UNITS BEFORE | | | | | | | DINNER. | | | | | + [...] 2019 | Visit | | MD [address] | | | | | | [place], | | | | | | [place] [address] | | | | | | [phone] | | | | | | | | +--------+---------+ + + + documented as of this encounter Procedures + +--------+ + + + | Procedure Name | Priori | Date/Time | Associated Diagnosis | Comments | | | ty | | | | + +--------+ + + + | TAWNYA TOMOSYN | Routin | 03/06/2014 | Other screening | Results for this | | SCREENING BILATERAL | e | 10:58 AM | mammogram | procedure are in the | | | | PST | | results section. | + +--------+ + + + documented in this encounter Results TAWNYA Tomosynthesis Screening Bilateral (03/06/2014 10:58 AM PST) + + | Specimen | + + | | + + + + + | Narrative | Performed At | + + + | EXAM: TAWNYA TOMOSYN SCREENING BILATERAL dated 03/06/2014 10:20 AM | [facility] | | HISTORY: Routine Screening. SCREEN. No significant family history of | LAB | | breast cancer. TECHNIQUE: Bilateral digital CC and MLO. Erwin | | | synthesis is performed. CAD utilized. COMPARISON: Mammograms | | | dating back to 2005. FINDINGS: Scattered breast parenchyma is | | | present bilaterally. The pattern is stable and symmetric. There | | | are no areas of developing architectural distortion. There are no | | | distinct masses. There are no suspicious clusters of | | | microcalcifications. Vascular and round calcifications in each breast. | | | IMPRESSION - BI-RADS CATEGORY 2: BENIGN FINDINGS 2 | | | RECOMMENDATION: Normal screening interval. Dictated and Signed by: | | | David Jon MD Electronically signed: 03/08/2014 8:07 AM | | + + + + + | Procedure Note | + + | Al, Rad Results In - 03/08/2014 8:11 AM PST EXAM: TAWNYA TOMOSYN SCREENING BILATERAL | | dated 03/06/2014 10:20 AMHISTORY: Routine Screening. SCREEN. No significant family | | history of breastcancer.TECHNIQUE: Bilateral digital CC and MLO. Erwin synthesis is | | performed. CADutilized.COMPARISON: Mammograms dating back to 2005.FINDINGS: Scattered | | breast parenchyma is present bilaterally. The pattern isstable and symmetric. There | | are no areas of developing architecturaldistortion. There are no distinct masses. | | There are no suspicious clusters ofmicrocalcifications. Vascular and round | | calcifications in each breast.IMPRESSION -BI-RADS CATEGORY 2: BENIGN FINDINGS | | 2RECOMMENDATION: Normal screening interval.Dictated and Signed by: David Jon MD | | Electronically signed: 03/08/2014 8:07 AM | |FINDINGS: Scattered breast parenchyma is present bilaterally. The pattern is | |stable and symmetric. There are no areas of developing architectural | |distortion. There are no distinct masses. There are no suspicious clusters of | |microcalcifications. Vascular and round calcifications in each breast. | | | |IMPRESSION - | | | |BI-RADS CATEGORY 2: BENIGN FINDINGS 2 | | | |RECOMMENDATION: Normal screening interval. | | | |Dictated and Signed by: David Jon MD | | Electronically signed: 03/08/2014 8:07 AM | + + + +---------+ + + | Performing | Address | City/State/Zipcode | Phone Number | | Organization | | | | + +---------+ + + | MIS[facility]LL[facility]OUS LAB | | | [phone] | + +---------+ + + | [facility] LAB | | | [phone] | + +---------+ + + documented in this encounter Visit Diagnoses + + | Diagnosis | + + | Other screening mammogram | + + documented in this encounter"
--- OUTSIDE RECORDS SUMMARY | ~2019-09-12 | XMS | Encounter Summary ---
Demographics + + + | Address | [address] | | | [place] [address] | + + + | Home Phone [...] Author | [facility] | | | and [place] | + + + | Organization | [facility] [...] | | | | | [place] [address] | | + + + + + | Valentín Saleh | ECON | [address] | | | | | [place] [address] | | + + + + + | Roberto Carlos Lennon | LEVI | Unknown | | + + + + + Care Team Providers + +------+ + | Care Middleware Administrator Name | Role | Phone | + +------+ + | Francois Pascal MD | PCP | | + +------+ + Encounter Details +--------+ + + + + | Date | Type | Department | Care Team | Description | +--------+ + + + + | 03/06/ | Hospital | [facility] | Francois Pascal, | Other screening | | 2013 | Encounter | MED CTR MAMMOGRAPHY | [address] | mammogram | | | | [address] | [address], | | | | | [place] | [place] [address] | | | | | [address] | [phone] | | | | | [phone] | | | +--------+ + + + [...] 2019 | Visit | | MD [address] | | | | | | [place], | | | | | | [place] [address] | | | | | | [phone] | | | | | | | [...] + | MISCELLANEOUS LAB | | | [phone] | + +---------+ + + | MISCELANIOUS LAB | | | [phone] | + +---------+ + + documented in this encounter Visit Diagnoses + + | Diagnosis | + + | Other screening mammogram | + + documented in this encounter"
--- OUTSIDE RECORDS SUMMARY | ~2019-09-12 | XMS | Encounter Summary ---
Demographics + + + | Address | [address] | | | [place] [address] | + + + | Home Phone [...] + | Author | [facility] | | | and [place]ana | + + + | Organization | [facility] [...] | | | | | [place] [address] | | + + + + + | Valentín Saleh | ECON | [address] | | | | | [place] [address] | | + + + + + | Roberto Carlos Lennon | LEVI | Unknown | | + + + + + Care Team Providers + +------+ + | Care Egg Processing Supervisor Name | Role | Phone [...] + | 10/25/ | Office | [facility] | Francois Pascal, | Atrial fibrillation, | | 2018 | Visit | MEDICINE [address] | [address] | unspecified type | | | | [address], | [address], | ([facility]) (Primary Dx); | | | | [place] [address] | [place] [address] | Diabetes mellitus | | | | [phone] | [phone] | due to underlying | | | | | | condition with stage | | | | | | 3 chronic kidney | | | | | | disease, with | | | | | | long-term current | | | | | | use of insulin | | | | | | ([facility]); CHRONIC | | | | [...] VSD Father 50 Pneumonia Family Hx of [employer]'s chorea Sister and 2 brothers: CAD, [employer]'s Disease to [place] - with 2 Healthy Children No kidney disease in family. Social History: [facility] [...] lesions Assessment: 1. Atrial fibrillation, unspecified type ([facility]) 2. 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, with long-term current use of insulin ([facility]) insulin glargine (LANTUS) 100 units/mL [...] 2019 | Visit | | MD [address] | | | | | | [place], | | | | | | [place] [address] | | | | | | [phone] | | | | | | | [...] [address] | [place] | [phone] | | [facility] | | [address] | | | [facility] | | [...] | mL/min/1.73m2 | JESSICAE | | | HAITIAN | RATE,ESTIMATED | | MEDICAL | | | | mL/min/1.25w8Ysre than | | [facility]ARK | | | [...] [address] | [place] | [phone] | | [facility] | | [address] | | | [facility] | | [...] [address] | [place] | [phone] | | [facility] | | [address] | | | - LABORATORY | | [...]
--- OUTSIDE RECORDS SUMMARY | ~2019-09-12 | XMS | Encounter Summary ---
Demographics + + + | Address | [address] | | | [place] [address] | + + + | Home Phone [...] | Author | [facility] | | | and Clarkeana | + + + | Organization | [facility] | [...] | | | | | [place] [address] | | + + + + + | Valentín Saleh | ECON | [address] | | | | | [place] [address] | | + + + + + | Roberto Carlos Lennon | LEVI | [place] | | + + + + + Care Team Providers + +------+ + | Care Instructional Writer Name | Role | Phone | + +------+ + PCP | Unavailable | + +------+ + Encounter Details +--------+ + + + + | Date | Type | Department | Care Team | Description | +--------+ + + + + | 02/08/ | Hospital | [facility] | | | | 2006 | Encounter | MED CTR XRAY [address] | | | | | | [place] | | | | | | [place] [address] | | | | | | [phone] | | | +--------+ + + + [...] | | | | | | [place] [address] | | | | | | [phone] | | | | | | | | +--------+---------+ + + + documented as of this encounter Visit Diagnoses Not on filedocumented in this encounter"
--- OUTSIDE RECORDS SUMMARY | ~2019-09-12 | XMS | Encounter Summary ---
Demographics + + + | Address | [address] | | | [place] [address] | + + + | Home Phone [...] | [facility] | | | and [place]ana | + + + | Organization | [facility] | [...] | | | | | [place] [address] | | + + + + + | Valentín Saleh | ECON | [address] | | | | | [place] [address] | | + + + + + | Roberto Carlos Lennon | LEVI | Unknown | | + + + + + Care Team Providers + +------+ + | Care Tank Driver Name | Role | Phone | [...] | 09/14/ | Refill | [facility] [place] [facility] | Francois Pascal, | Medication Refill | | 2012 | | MEDICINE [place] | [address] | | | | | [address] | [address] [place], | | | | | [place] | [place] [address] | | | | | [address] | [phone] | | | | | [phone] | | | +--------+--------+ + + + [...] | | | | | | [place] [address] | | | | | | [phone] | | | | | | | | +--------+---------+ + + + documented as of this encounter Visit Diagnoses Not on filedocumented in this encounter"
--- OUTSIDE RECORDS SUMMARY | ~2019-09-12 | XMS | Encounter Summary ---
Demographics + + + | Address | [address] | | | [place] [address] | + + + | Home Phone [...] + | Author | [facility] | | | and [place]ana | + + + | Organization | [facility] | [...] | | | | | [place] [address] | | + + + + + | Valentín Saleh | ECON | [address] | | | | | [place] [address] | | + + + + + | Roberto Carlos Lennon | LEVI | Unknown | | + + + + + Care Team Providers + +------+ + | Care Middle School Music Teacher Name | Role | Phone | [...] + + | 11/16/ | Office | [facility] | Francois Pascal, | Cellulitis and | | 2018 | Visit | MEDICINE [place] | [address] | abscess of foot | | | | [address] | [address] [place], | (Primary Dx); Leg | | | | [place] | [place] [address] | edema, left | | | | [address] | [phone] | | | | | [phone] | | | +--------+---------+ + + + [...] VSD Father 50 Pneumonia Family Hx of Paragonah's chorea Sister and 2 brothers: CAD, Airam's Disease to Sigrid - with 2 Healthy Children No kidney disease in family. Social History: Born in [facility] for 47 [...] | | | | | | [place] [address] | | | | | | [phone] | | | | | | | [...] ordering provider, by the | | | manager social media, immediately following the exam. Dictated and | [...] to the ordering provider, by the | |manager social media, immediately following the exam. | | | [...]
--- OUTSIDE RECORDS SUMMARY | ~2019-09-12 | XMS | Encounter Summary ---
Demographics + + + | Address | [address] | | | [place] [address] | + + + | Home Phone [...] | | | | | [place] [address] | | + + + + + | Valentín Saleh | ECON | [address] | | | | | [place] [address] | | + + + + + | Roberto Carlos Lennon | LEVI | [place] | | + + + + + Care Team Providers + +------+ + | Care Cra Name | Role | Phone | + +------+ + PCP | Unavailable | + +------+ + Encounter Details +--------+ + + + + | Date | Type | Department | Care Team | Description | +--------+ + + + + | 05/27/ | Hospital | [facility] | Jason Hernandez, | | | 2009 | Encounter | MED CTR XRAY [address] | PA-C [address] | | | | | [place] | [address] [place] | | | | | [place] [address] | [place] [address] | | | | | [phone] | [phone] | | | | | | | [...] | | | | | | [place] [address] | | | | | | [phone] | | | | | | | | +--------+---------+ + + + documented as of this encounter Visit Diagnoses Not on filedocumented in this encounter"
--- OUTSIDE RECORDS SUMMARY | ~2019-09-12 | XMS | Encounter Summary ---
Demographics + + + | Address | [address] | | | [place] [address] | + + + | Home Phone [...] + | Author | [facility] | | | and [place] | + + + | Organization | [facility] [...] | | | | | [place] [address] | | + + + + + | Valentín Saleh | ECON | [address] | | | | | [place] [address] | | + + + + + | Roberto Carlos Lennon | LEVI | Unknown | | + + + + + Care Team Providers + +------+ + | Care Cardiopulmonary Physical Therapist Name | Role | Phone | + +------+ + | No, Physician | PCP | Unavailable | + +------+ + Encounter Details +--------+ + + + + | Date | Type | Department | Care Team | Description | +--------+ + + + + | 07/31/ | Lab | [facility] | Francois Pascal, | Encounter for | | 2019 | Requisition | MED CTR LABORATORY | [address] | screening for other | | | | [address] [place] | [address] [place], | viral diseases | | | | [place], [place] | [place] [address] | | | | | [address] | [phone] | | | | | [phone] | | | +--------+ + + + [...] | | | | | | [place] [address] | | | | | | [phone] | | | | | | | [...] + + | Performed at: 01 - [facility] [address], | REFERENCE LAB | | [place], [place] [id number] Cloth Mercerizing Supervisor: Brian Lacy MD, Phone: | NATALAI - ANTHONY | | [phone] | | + + + + + + + + | Performing | Address | City/State/Zipcode | Phone Number | | Organization | | | | + + + + + | REFERENCE LAB | [address] | [place], [place] | [phone] | | [facility] | [place] | [address] | | + + + + + [...] [address] | [place] | [phone] | | [facility] | | [address] | | | - LABORATORY | | [...] test | | | | | | ([id number]). | | | | + + + + + + + + | Specimen | + + | Blood | + + + + + | Narrative | Performed At | + + + | Performed at: 01 - [facility] [address], | REFERENCE LAB | | [place], [place] [id number] Cloth Mercerizing Supervisor: Brian Lacy MD, Phone: | NATALIA - ANTHONY | | [phone] | | + + + + + + + + | Performing | Address | City/State/Zipcode | Phone Number | | Organization | | | | + + + + + | REFERENCE LAB | [address] | [place], [place] | [phone] | | [facility] | [place] | [address] | | + + + + + documented in this encounter Visit Diagnoses + + | Diagnosis | + + | Encounter for screening for other viral diseases | + + documented in this encounter"
--- OUTSIDE RECORDS SUMMARY | ~2019-09-12 | XMS | Encounter Summary ---
Demographics + + + | Address | [address] | | | [place] [address] | + + + | Home Phone [...] | [facility] | | | and [place]ana | + + + | Organization | [facility] | | | and [...] | | | | | [place] [address] | | + + + + + | Valentín Saleh | ECON | [address] | | | | | [place] [address] | | + + + + + | Roberto Carlos Lennon | LEVI | Unknown | | + + + + + Care Team Providers + +------+ + | Care Manager Of Tires Sales Name | Role | Phone | [...] | 04/14/ | Refill | [facility] | Francois Pascal, | Medication Refill | | 2015 | | MEDICINE [facility] | [address] | | | | | [address] [place], | [address] [place], | | | | | [place] [address] | [place] [address] | | | | | [phone] | [phone] | | | | | | | [...] | | | | | | [place] [address] | | | | | | [phone] | | | | | | | | +--------+---------+ + + + documented as of this encounter Visit Diagnoses Not on filedocumented in this encounter"
--- OUTSIDE RECORDS SUMMARY | ~2019-09-12 | XMS | Encounter Summary ---
Demographics + + + | Address | [address] | | | [place] [address] | + + + | Home Phone [...] | Author | [facility] | | | and [place]ana | + + + | Organization | [facility] [...] | | | | | [place] [address] | | + + + + + | Valentín Saleh | ECON | [address] | | | | | [place] [address] | | + + + + + | Roberto Carlos Lennon | LEVI | Unknown | | + + + + + Care Team Providers + +------+ + | Care Coal Pulverizer Operator Name | Role | Phone | [...] Refill | | 2014 | | [facility] | [address] | | | | | [address] | [address] [place], | | | | | [place] | [place] [address] | | | | | [address] | [phone] | | | | | [phone] | | | +--------+--------+ + + + [...] | | | | | | [place] [address] | | | | | | [phone] | | | | | | | | +--------+---------+ + + + documented as of this encounter Visit Diagnoses Not on filedocumented in this encounter"
--- OUTSIDE RECORDS SUMMARY | ~2019-09-12 | XMS | Encounter Summary ---
Demographics + + + | Address | [address] | | | [place] [address] | + + + | Home Phone [...] Author | [facility] | | | and [place]ana | + + + | Organization | [facility] | | [...] | | | | | [place] [address] | | + + + + + | Valentín Saleh | ECON | [address] | | | | | [place] [address] | | + + + + + | Roberto Carlos Lennon | LEVI | Unknown | | + + + + + Care Team Providers + +------+ + | Care Quality Engineer Medical Device Name | Role | Phone | + +------+ + | Francois Pascal MD | PCP | | + +------+ + Encounter Details +--------+ + + + + | Date | Type | Department | Care Team | Description | +--------+ + + + + | 11/25/ | Hospital | [facility] | Francois Pascal, | Confusion | | 2015 | Encounter | MED CTR ULTRASOUND | [address] | | | | | [address] [place] | [address] [place], | | | | | [place], [place] | [place] [address] | | | | | [address] | [phone] | | | | | [phone] | | | | | | | [...] | 2019 | Visit | | [address] | | | | | | [place], | | | | | | [place] [address] | | | | | | [phone] | | | | | | | [...] CLINICAL HISTORY: confusion COMPARISON: CAROTID ULTRASOUND | [facility] | | FEBRUARY 2009 FINDINGS: Grayscale, [...] + + | Performing | Address | City[facility]State[facility] | Phone Number | | Organization | | | | + + + + + | [facility] | [address] | [place], [place] | [phone] | | [facility] | | [address] | | | - IMAGING | | | | + + + + + documented in this encounter Visit Diagnoses + + | Diagnosis | + + | Confusion Unspecified psychosis | + + documented in this encounter"
--- OUTSIDE RECORDS SUMMARY | ~2019-09-12 | XMS | Encounter Summary ---
Demographics + + + | Address | [address] | | | [place] [address] | + + + | Home Phone [...] Author | [facility] | | | and [place]ana | + + + | Organization | [facility] [...] | | | | | [place] [address] | | + + + + + | Valentín Saleh | ECON | [address] | | | | | [place] [address] | | + + + + + | Roberto Carlos Lennon | LEVI | [place] | | + + + + + Care Team Providers + +------+ + | Care Dredge Hand Name | Role | Phone | + +------+ + PCP | Unavailable | + +------+ + Encounter Details +--------+ + + + + | Date | Type | Department | Care Team | Description | +--------+ + + + + | 04/25/ | Hospital | [facility] | | | | 1995 | Encounter | MED CTR GENERIC OP | | | | | | CONV DEPT [address] | | | | | | [place], | | | | | | [place] [address] | | | | | | [phone] | | | +--------+ + + + [...] | | | | | | [place] [address] | | | | | | [phone] | | | | | | | | +--------+---------+ + + + documented as of this encounter Visit Diagnoses Not on filedocumented in this encounter"
--- OUTSIDE RECORDS SUMMARY | ~2019-09-12 | XMS | Encounter Summary ---
Demographics + + + | Address | [address] | | | [place] [address] | + + + | Home Phone [...] | Author | [facility] | | | and [place] | + + + | Organization | [facility] [...] | | | | | [place] [address] | | + + + + + | Valentín Saleh | ECON | [address] | | | | | [place] [address] | | + + + + + [...] + + | 11/23/ | Hospital | [facility] | Francois Pascal, | CHRONIC KIDNEY | | 2013 | Encounter | MED CTR LABORATORY | [address] | DISEASE STAGE III | | | | [address] [place] | [address] [place], | (MODERATE) | | | | [place] | [place] [address] | | | | | [address] | [phone] | | | | | [phone] | | | +--------+ + + + [...] | | | | | | [place] [address] | | | | | | [phone] | | | | | | | [...] [address] | [place] | [phone] | | [facility] | | [address] | | | - LABORATORY | | | | + + + + + | [facility] | [address] | [place] | | | [facility] | | [address], [facility] | | | - [...] | 1.18 | 0.60 - 1.30 | [facility] | [...] | + + + + + | [facility] | [address] | [place], [place] | [phone] | | [facility] | | [address] | | | - LABORATORY | | | | + + + + + | [facility] | [address] | [place], [place] | | | [facility] | | [address], [facility] | | | - LABORATORY | | | | + + + + + documented in this encounter Visit Diagnoses + + | Diagnosis | + + | CHRONIC KIDNEY DISEASE STAGE III (MODERATE) Chronic kidney disease, Stage III | | (moderate) | + + documented in this encounter"
--- OUTSIDE RECORDS SUMMARY | ~2019-09-12 | XMS | Encounter Summary ---
Demographics + + + | Address | [address] | | | [place] [address] | + + + | Home Phone [...] Author | [facility] | | | and Clarkeana | + + + | Organization | [facility] [...] | | | | | [place] [address] | | + + + + + | Valentín Saleh | ECON | [address] | | | | | [place] [address] | | + + + + + | Roberto Carlos Lennon | LEVI | Unknown | | + + + + + Care Team Providers + +------+ + | Care Field Technical Specialist Name | Role | Phone | + +------+ + | Francois Pascal MD | PCP | | + +------+ + Encounter Details +--------+ + + + + | Date | Type | Department | Care Team | Description | +--------+ + + + + | 02/25/ | [facility] | [facility] | Francois Pascal, | | | 2010 | Encounter | MED CTR XRAY [address] | [address] | | | | | [place] | [address] [place], | | | | | [place] [address] | [place] [address] | | | | | [phone] | [phone] | | | | | | | [...] | | | | | | [place] [address] | | | | | | [phone] | | | | | | | [...] Performed At | + + + | [facility] Diagnostic Imaging Department | [facility] | | [address] [facility] | [facility] | | MAMMOGRAM SCREENING, 02/25/2011 | DIAG [...] Transcribed | | | Date/Time: 02/25/2011 17:29 Assistant Curator: | | | <Electronically Signed by David Jon MD> 02/25/112040 | | + + + + + | Procedure Note | + + | Al, Rad Conversion - 04/13/2013 4:27 PM [facility] | | Diagnostic Imaging Department [facility] | | MAMMOGRAM SCREENING, 02/25/2011 CLINICAL HISTORY: [...] 17:26 | |Transcribed Date/Time: 02/25/2011 17:29 | |Assistant Curator: | |<Electronically Signed by David Jon MD> [...]
--- OUTSIDE RECORDS SUMMARY | ~2019-09-12 | XMS | Encounter Summary ---
Demographics + + + | Address | [address] | | | [place] [address] | + + + | Home Phone [...] | | | | | [place] [address] | | + + + + + | Valentín Saleh | ECON | [address] | | | | | [place] [address] | | + + + + + | Roberto Carlos Lennon | LEVI | Unknown | | + + + + + Care Team Providers + +------+ + | Care Gasoline Tester Name | Role | Phone | [...] | | Gait | [place] | [address] Phone: | | | | | instability | [address] | [phone] | | | | | Procedures | Phone: | Fax: | | | | | [facility] | [phone] | [phone] | | | | | TREATMENT 45 | Fax: | | | | | | | [phone] | | +--------+--------+ + + + + Encounter Details +--------+---------+ + + + | Date | Type | Department | Care Team | Description | +--------+---------+ + + + | 03/19/ | Office | [facility] | Francois Pascal, | Posture imbalance | | 2016 | Visit | MED CTR THERAPY PT | [address] | (Primary Dx); | | | | OP [address] | [address] [place], | Impaired functional | | | | [place], [place] | [place] [address] | mobility, balance, | | | | [address] | [phone] | gait, and endurance; | | | | [phone] | | Left ankle pain | | | | | Kely Quinn, PT | | | | | | [address] | | | | | | [place] | | | | | | [address] | | | | | | | [...] might be different from t sridevi original. [facility] CTR THERAPY PT OP [address] [place] [address] Physical Therapy Discharge Note Date: 03/19/2015 Patient Information Patient Name: Alyson Lennon Date of : 1930 Age: 84 y.o. Encounter Diagnoses Code Name Primary? 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 [...] From: 02/13/2015 Certification To: 05/08/2015 Treatment Plan/Interventions 30684 - PT Evaluation 49357 - PT Re-Evaluation 46994 - Therapeutic Exercise 52319 - Neuromu scular Reeducation 07165 - Gait Training 35272 - Therapeutic Activities 73823 - [place] 89465 - Self Care/Home Management Patient and/or family [...] | | | | | | [place] [address] | | | | | | [phone] | | | | | | | [...]
--- OUTSIDE RECORDS SUMMARY | ~2019-09-12 | XMS | Encounter Summary ---
Demographics + + + | Address | [address] | | | [place] [address] | + + + | Home Phone [...] | Author | [facility] | | | and Clarkeana | + + + | Organization | [facility] | | [...] | | | | | [place] [address] | | + + + + + | Valentín Saleh | ECON | [address] | | | | | [place] [address] | | + + + + + | Roberto Carlos Lennon | LEVI | Unknown | | + + + + + Care Team Providers + +------+ + | Care Contract Administration Specialist Name | Role | Phone | [...] | instability | [address] | [employer] | | | | [address] | [address] | [address] | [place], | | | | | (ICD-10-CM) | [place] | [place] [address] | | | | | - [address] | [place] | Phone: | | | | | (ICD-9-CM) - | [address] | [phone] | | | | | Gait | Phone: | Fax: | | | | | instability | [phone] | [phone] | | | | | Procedures | Fax: | | | | | | pt eval | [phone] | | +--------+ + + + + + Encounter Details +--------+---------+ + + + | Date | Type | Department | Care Team | Description | +--------+---------+ + + + | 03/05/ | Office | [facility] | Francois Pascal, | Posture imbalance | | 2015 | Visit | MED CTR THERAPY PT | [address] | (Primary Dx); | | | | OP [address] | [address] [place], | Impaired functional | | | | [place] | [place] [address] | mobility, balance, | | | | [address] | [phone] | gait, and endurance; | | | | [phone] | | Left ankle pain | | | | | Kely Quinn B, PT | | | | | | [address] | | | | | | [place] | | | | | | [address] | | | | | | | [...] might be different from t sridevi original. [facility] CTR THERAPY PT OP [address] [place] [address] Physical Therapy Daily Treatment Note Date: 03/05/2015 [...] safety at home and in the [facility]. Plan: Continue with manual therapy, LE [...] | | | | | | [place] [address] | | | | | | [phone] | | | | | | | [...]
--- OUTSIDE RECORDS SUMMARY | ~2019-09-12 | XMS | Encounter Summary ---
Demographics + + + | Address | [address] | | | [place] [address] | + + + | Home Phone [...] Author | [facility] | | | and Clarkeana | + + + | Organization | [facility] | [...] | | | | | [place] [address] | | + + + + + | Valentín Saleh | ECON | [address] | | | | | [place] [address] | | + + + + + | Roberto Carlos Lennon | LEVI | [place] | | + + + + + Care Team Providers + +------+ + | Care Floor Runner Name | Role | Phone | + +------+ + PCP | Unavailable | + +------+ + Encounter Details +--------+ + + + + | Date | Type | Department | Care Team | Description | +--------+ + + + + | 05/27/ | Hospital | [facility] | Jason Hernandez, | | | 2009 | Encounter | MED CTR XRAY [address] | PA-C [address] | | | | | [place] | [address] [place] | | | | | [place] [address] | [place] [address] | | | | | [phone] | [phone] | | | | | | | [...] | | | | | | [place] [address] | | | | | | [phone] | | | | | | | | +--------+---------+ + + + documented as of this encounter Visit Diagnoses Not on filedocumented in this encounter"
--- OUTSIDE RECORDS SUMMARY | ~2019-09-12 | XMS | Encounter Summary ---
Demographics + + + | Address | [address] | | | [place] [address] | + + + | Home Phone [...] | Author | [facility] | | | and Clarkeana | + + + | Organization | [facility] | [...] | | | | | [place] [address] | | + + + + + | Valentín Saleh | ECON | [address] | | | | | [place] [address] | | + + + + + [...] | instability | [address] | [address] | | | | n | [address] | [address] | [place], | | | | | (ICD-10-CM) | [place] | [place] [address] | | | | | - 781.2 | [place] | Phone: | | | | | (ICD-9-CM) - | [address] | [phone] | | | | | Gait | Phone: | Fax: | | | | | instability | [phone] | [phone] | | | | | Procedures | Fax: | | | | | | pt eval | [phone] | | +--------+ + + + + + Encounter Details +--------+---------+ + + + | Date | Type | Department | Care Team | Description | +--------+---------+ + + + | 02/13/ | Office | [facility] | Francois Pascal, | Impaired functional | | 2015 | Visit | MED CTR THERAPY PT | MD [address] | mobility, balance, | | | | OP [address] | [address] [place], | gait, and endurance | | | | [place], [place] | [place] [address] | (Primary Dx); | | | | [address] | [phone] | Posture imbalance; | | | | [phone] | | Left ankle pain | | | | | Kely Quinn, PT | | | | | | [address] | | | | | | [place] | | | | | | [address] | | | | | | | [...] 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, 2-06/14 pain Patient's Primary Functional Goal [...] percent impaired, limited or restricted Treatment Plan/Interventions: 65324 - PT Evaluation 12688 - PT Re-Evaluation 19670 - Therapeutic Exercise 58662 - Neuromuscular Reeducation 53559 - Gait Training 43215 - Therapeutic Activities 74599 - Manual Therapy 93419 - Self Care/Home Management Requested # of Visits: 24 2x/week for 12 weeks Certification From: 02/13/2015 Certification To: 05/08/2015 Electronically signed by: Kely Green PT, 02/13/2015 13:25 Patient Name: Alyson Lennon/: 1930/ Kely Ryan PT - 02/13/2015 8:24 AM PST [facility] CTR THERAPY PT OP [address] [place] [address] Physical Therapy Progress Assessment Date: 02/13/2015 Patient Information Patient Name: Alyson Lennon Date of : 1930 Age: 84 y.o. Encounter Diagnoses Code Name Primary? 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, 2-4/10 pain Patient's Primary Functional Goal [...] From: 02/13/2015 Certification To: 05/08/2015 Treatment Plan/Interventions 16210 - PT Evaluation 82041 - PT Re-Evaluation 68499 - Therapeutic Exercise 19825 - Neuromuscular Reeducation 70213 - Gait Training 75448 - Therapeutic Activities 65187 - Manual Therapy 36403 - Self Care/Home Management Patient and/or family [...] Name: Alyson Lennon/: 1930/ [facility] of Treatment +--------+---------+ + + + | Date | Type | Specialty | Care Team | Description | +--------+---------+ + + + | 12/06/ | Office | Cardiology | Stephenie Paul, | | | 2019 | Visit | | MD [address] | | | | | | [place], | | | | | | [place] [address] | | | | | | [phone] | | | | | | | [...]
--- OUTSIDE RECORDS SUMMARY | ~2019-09-12 | XMS | Encounter Summary ---
Demographics + + + | Address | [address] | | | [place] [address] | + + + | Home Phone [...] Author | [facility] | | | and Clarkeana | + + + | Organization | [facility] [...] | | | | | [place] [address] | | + + + + + | Valentín Saleh | ECON | [address] | | | | | [place] [address] | | + + + + + | Roberto Carlos Lennon | LEVI | Unknown | | + + + + + Care Team Providers + +------+ + | Care Pressure Tank Operator Name | Role | Phone [...] Refill | | 2015 | | MEDICINE [place] | [address] | | | | | [address] | [address] [place], | | | | | [place] | [place] [address] | | | | | [address] | [phone] | | | | | [phone] | | | +--------+--------+ + + + [...] | | | | | | [place] [address] | | | | | | [phone] | | | | | | | | +--------+---------+ + + + documented as of this encounter Visit Diagnoses Not on filedocumented in this encounter"
--- OUTSIDE RECORDS SUMMARY | ~2019-09-12 | XMS | Encounter Summary ---
Demographics + + + | Address | [address] | | | [place] [address] | + + + | Home Phone [...] Author | [facility] | | | and Clarkeana | + + + | Organization | [facility] [...] + | Valentín Saleh | ECON | [address] | | | | | [place] [address] | | + + + + + | Roberto Carlos Lennon | LEVI | Unknown | | + + + + + Care Team Providers + +------+ + | Care Security Installation Technician Name | Role | Phone [...] + | 04/04/ | Telephone | [facility] | Francois Pascal, | Medication | | 2018 | | MEDICINE [place] | [address] | Management | | | | [address] | [address] [place], | | | | | [place] | [place] [address] | | | | | [address] | [phone] | | | | | [phone] | | | +--------+ + + + [...] | | | | | | [place] [address] | | | | | | [phone] | | | | | | | | +--------+---------+ + + + documented as of this encounter Visit Diagnoses Not on filedocumented in this encounter"
--- OUTSIDE RECORDS SUMMARY | ~2019-09-12 | XMS | Encounter Summary ---
Demographics + + + | Address | [address] | | | [place] [address] | + + + | Home Phone [...] Author | [facility] | | | and Clarkeana | + + + | Organization | [facility] | | [...] | | | | | [place] [address] | | + + + + + | Valentín Saleh | ECON | [address] | | | | | [place] [address] | | + + + + + | Roberto Carlos Lennon | LEVI | Unknown | | + + + + + Care Team Providers + +------+ + | Care Condenser Cleaner Name | Role | Phone | [...] | instability | [address] | [place] | | | | n | [address] | [address] | [place], | | | | | (ICD-10-CM) | [place] | [place] [address] | | | | | - 781.2 | [place] | Phone: | | | | | (ICD-9-CM) - | [address] | [phone] | | | | | Gait | Phone: | Fax: | | | | | instability | [phone] | [phone] | | | | | Procedures | Fax: | | | | | | pt eval | [phone] | | +--------+ + + + + + Encounter Details +--------+---------+ + + + | Date | Type | Department | Care Team | Description | +--------+---------+ + + + | 12/26/ | Office | [facility] | Francois Pascal, | Impaired functional | | 2015 | Visit | MED CTR THERAPY PT | MD [address] | mobility, balance, | | | | OP [address] | [address] [place], | gait, and endurance | | | | [place] | [place] [address] | (Primary Dx); | | | | [address] | [phone] | Posture imbalance; | | | | [phone] | | Left ankle pain | | | | | Cheyenne Caballero, | | | | | | INSURANCE COMPLIANCE ANALYST [address] | | | | | | [place] | | | | | | [address] | | | | | | | [...] of this encounter Progress Notes Cheyenne Caballero, INSURANCE COMPLIANCE ANALYST - 12/26/2014 10:37 AM PDTFormatting of this note might be different f rom the original. [facility] CTR THERAPY PT OP [address] [place] [address] Physical Therapy Daily Treatment Note Date: 12/26/2014 [...] | Visit | | MD Bob Vasquez [address] | | | | | | [place], | | | | | | [place] [address] | | | | | | [phone] | | | | | | | [...]
--- OUTSIDE RECORDS SUMMARY | ~2019-09-12 | XMS | Encounter Summary ---
Demographics + + + | Address | [address] | | | [place] [address] | + + + | Home Phone [...] | Author | [facility] | | | and Clarkeana | + + + | Organization | [facility] [...] | | | | | [place] [address] | | + + + + + | Valentín Saleh | ECON | [address] | | | | | [place] [address] | | + + + + + | Roberto Carlos Lennon | LEVI | Unknown | | + + + + + Care Team Providers + +------+ + | Care Granulator Operator Name | Role | Phone | [...] [address] | [address] [facility] | (MODERATE) (Primary | | | | [place], [place] | 100 [place], [place] | Dx) | | | | [address] | [address] | | | | | [phone] | | | +--------+ + + + [...] f/u expected late Se pt. Sent to [facility] docu mented in this encounter Plan of Treatment +--------+---------+ + + + | Date | Type | Specialty | Care Team | Description | +--------+---------+ + + + | 12/06/ | Office | Cardiology | Stephenie Paul, | | | 2019 | Visit | | MD [facility] | | | | | | [place], | | | | | | [place] [address] | | | | | | [phone] | | | | | | | [...] [address] | [place] | [phone] | | [facility] | | [address] | | | - LABORATORY | | | | + + + + + | [address] | [address] | [place] | | | [facility] | | [address], [facility] [...] | | | | | mg/dL | [facility] | | | | | [...] | [address] | [place], [place] | [phone] | | [facility] | | [address] | | | - LABORATORY | | | | + + + + + | [address] [facility] | [address] | [place], [place] | | | [facility] | | [address] | | | - LABORATORY | | | | + + + + + documented in this encounter Visit Diagnoses + + | Diagnosis | + + | CHRONIC KIDNEY DISEASE STAGE III (MODERATE) - Primary Chronic kidney disease, Stage | | III (moderate) | + + documented in this encounter"
--- OUTSIDE RECORDS SUMMARY | ~2019-09-12 | XMS | Encounter Summary ---
Demographics + + + | Address | [address] | | | [place] [address] | + + + | Home Phone [...] | [facility] | | | and Clarkeana | + + + | Organization | [facility] [...] | | | | | [place] [address] | | + + + + + | Valentín Saleh | ECON | [address] | | | | | [place] [address] | | + + + + + | Roberto Carlos Lennon | LEVI | Unknown | | + + + + + Care Team Providers + +------+ + | Care Box Storage Worker Name | Role | Phone | [...] + | 08/13/ | Telephone | [facility] | Francois Pascal, | Referral | | 2015 | | MEDICINE [address] [place] [address] | [address] | | | | | [place], | [address] [place], | | | | | [place] [address] | [place] [address] | | | | | [phone] | [phone] | | | | | | | [...] | | | | | | [place] [address] | | | | | | [phone] | | | | | | | | +--------+---------+ + + + documented as of this encounter Visit Diagnoses Not on filedocumented in this encounter"
--- OUTSIDE RECORDS SUMMARY | ~2019-09-12 | XMS | Encounter Summary ---
Demographics + + + | Address | [address] | | | [place] [address] | + + + | Home Phone [...] | Author | [facility] | | | and Clarkeana | + + + | Organization | [facility] | [...] | | | | | [place] [address] | | + + + + + | Valentín Saleh | ECON | [address] | | | | | [place] [address] | | + + + + + | Roberto Carlos Lennon | LEVI | Unknown | | + + + + + Care Team Providers + +------+ + | Care Branch Manager Name | Role | Phone | [...] | 07/13/ | Refill | [facility] | Francois Pascal, | Medication Refill | | 2012 | | MEDICINE [place] | [address] | | | | | [address] | [address] [place], | | | | | [place] | [place] [address] | | | | | [address] | [phone] | | | | | [phone] | | | +--------+--------+ + + + [...] | | | | | | [place] [address] | | | | | | [phone] | | | | | | | | +--------+---------+ + + + documented as of this encounter Visit Diagnoses Not on filedocumented in this encounter"
--- OUTSIDE RECORDS SUMMARY | ~2019-09-12 | XMS | Encounter Summary ---
Demographics + + + | Address | [address] | | | [place] [address] | + + + | Home Phone [...] | Author | [facility] | | | and Clarkeana | + + + | Organization | [facility] [...] | | | | | [place] [address] | | + + + + + | Valentín Saleh | ECON | [address] | | | | | [place] [address] | | + + + + + | Roberto Carlos Lennon | LEVI | Unknown | | + + + + + Care Team Providers + +------+ + | Care Lion Tamer Name | Role | Phone | + [...] + | 10/05/ | Telephone | [facility] | Francois Pascal, | Medication Orders | | 2016 | | MEDICINE [address] [place] [address] | [address] | (Novolog ) | | | | AVE [place], | [address] [place], | | | | | [place] [address] | [place] [address] | | | | | [phone] | [phone] | | | | | | | [...] - 10/05/2016 8:54 AM PDTReceived request from [facility] Humalog [facility] Novolog Medication changed [...] | | | | | | [place] [address] | | | | | | [phone] | | | | | | | | +--------+---------+ + + + documented as of this encounter Visit Diagnoses Not on filedocumented in this encounter"
--- OUTSIDE RECORDS SUMMARY | ~2019-09-12 | XMS | Encounter Summary ---
Demographics + + + | Address | [address] | | | [place] [address] | + + + | Home Phone [...] | Author | [facility] | | | and Clarkeana | + + + | Organization | [facility] [...] | | | | | [place] [address] | | + + + + + | Valentín Saleh | ECON | [address] | | | | | [place] [address] | | + + + + + | Roberto Carlos Lennon | LEVI | Unknown | | + + + + + Care Team Providers + +------+ + | Care Drum Cleaner Name | Role | Phone | + +------+ + | Francois Pascal MD | PCP | | + +------+ + Encounter Details +--------+ + + + + | Date | Type | Department | Care Team | Description | +--------+ + + + + | 08/23/ | Hospital | [facility] | Stephenie Paul, | | | 2011 | Encounter | MED CTR LABORATORY | [address] | | | | | [address] | [facility] [place], | | | | | [place] | [place] [address] | | | | | [address] | [phone] | | | | | [phone] | | | +--------+ + + + [...] | | | | | | [place] [address] | | | | | | [phone] | | | | | | | [...] 15 | 7 - 18 mg/dL | [facility] | | [facility] | [facility] | | | | | [facility] - | | | | | | LABORATORY | | + + + + + + | Creatinine | 1.35 (H) | 0.60 - 1.30 | [facility] | | | | | mg/dL | [facility] | | | | | | [facility]ICAL | | | | | | C[facility] - | | | | | | LABORATORY | | + + + + + + | Estimated | 38 (L)Comment: For | >60 mL/min/A | [facility] | | | GFR | -Americans, [...] + | [facility] | [address] | [place], [place] | [phone] | | [facility] | | [address] | | | - LABORATORY | | | | + + + + + | [facility] | [address] | [place] | | | [facility] | | [address] | | | - LABORATORY [...] + | [facility] | [address] | [place], [place] | [phone] | | [facility] | | [address] | | | - LABORATORY | | | | + + + + + | [facility] | [address] | [place], [place] | | | [facility] | | [address], [facility] | | | - [...] + | [facility] | [address] | [place] | [phone] | | [facility] | | [address] | | | - LABORATORY | | | | + + + + + | [facility] | [address] | [place] | | | [facility] | | [address] | | | - LABORATORY [...] + | [facility] | [address] | [place], [place] | [phone] | | [facility] | | [address] | | | - LABORATORY | | | | + + + + + | [facility] | [address] | [place] | | | [facility] | | [address] [place] [address] | | | - LABORATORY | | [...] + | [facility] | [address] | [place] | [phone] | | [facility] | | [address] | | | - LABORATORY | | | | + + + + + | [facility] | [address] | [place] | | | [facility] | | [id number] [place] [address] | | | - LABORATORY | | | | + + + + + documented in this encounter Visit Diagnoses Not on filedocumented in this encounter"
--- OUTSIDE RECORDS SUMMARY | ~2019-09-12 | XMS | Encounter Summary ---
Demographics + + + | Address | [address] | | | [place] [address] | + + + | Home Phone [...] | Author | [facility] | | | and Clarkeana | + + + | Organization | [facility] [...] | | | | | [place] [address] | | + + + + + | Valentín Saleh | ECON | [address] | | | | | [place] [address] | | + + + + + | Roberto Carlos Lennon | LEVI | Unknown | | + + + + + Care Team Providers + +------+ + | Care Photography Assistant Name | Role | Phone | [...] | 08/18/ | Refill | [facility] | Francois Pascal, | Medication Refill | | 2012 | | MEDICINE [place] | [address] | | | | | [address] | [address] [place], | | | | | [place] | [place] [address] | | | | | [address] | [phone] | | | | | [phone] | | | +--------+--------+ + + + [...] | | | | | | [place] [address] | | | | | | [phone] | | | | | | | | +--------+---------+ + + + documented as of this encounter Visit Diagnoses Not on filedocumented in this encounter"
--- OUTSIDE RECORDS SUMMARY | ~2019-09-12 | XMS | Encounter Summary ---
Demographics + + + | Address | [address] | | | [place] [address] | + + + | Home Phone [...] + | Author | [facility] | | | and Clarkeana | + + + | Organization | [facility] | | [...] | | | | | [place] [address] | | + + + + + | Valentín Saleh | ECON | [address] | | | | | [place] [address] | | + + + + + | Roberto Carlos Lennon | LEVI | Unknown | | + + + + + Care Team Providers + +------+ + | Care Fourth Hand Name | Role | Phone | [...] + | 08/19/ | Telephone | [facility] | Francois Pascal, | LABS | | 2016 | | MEDICINE [address] | [address] | | | | | AVE [place], | [address] [place], | | | | | [place] [address] | [place] [address] | | | | | [phone] | [phone] | | | | | | | [...] 11:54 AM PDTUA orderedElectronical ly signed by Leanne Johnson RN at 08/19/2016 11:55 AM PDTdocumented [...] | | | | | | [place] [address] | | | | | | [phone] | | | | | | | [...] - 1.030 | [facility] | | | [place], | | | [facility] | [...] + | [facility] [facility] | [address] | [place], [place] | [phone] | | [facility] | | [address] | | | - LABORATORY | | | | + + + + + documented in this encounter Visit Diagnoses + + | Diagnosis | + + | Urinary tract infection without hematuria, site unspecified - Primary | + + documented in this encounter"
--- OUTSIDE RECORDS SUMMARY | ~2019-09-12 | XMS | Encounter Summary ---
Demographics + + + | Address | [address] | | | [place] [address] | + + + | Home Phone [...] Author | [facility] | | | and Clarkeana | + + + | Organization | [facility] | [...] | | | | | [place] [address] | | + + + + + | Valentín Saleh | ECON | [address] | | | | | [place] [address] | | + + + + + | Roberto Carlos Lennon | LEVI | Jeyson | | + + + + + Care Team Providers + +------+ + | Care Cyber Analyst Name | Role | Phone | + +------+ + PCP | Unavailable | + +------+ + Encounter Details +--------+ + + + + | Date | Type | Department | Care Team | Description | +--------+ + + + + | 12/17/ | Hospital | [facility] | Stephenie Paul, | | | 2010 | Encounter | MED CTR LABORATORY | [address] | | | | | [address] | [facility], | | | | | [place], [place] | [place] [address] | | | | | [address] | [phone] | | | | | [phone] | | | +--------+ + + + [...] | 2019 | Visit | | [address] | | | | | | [place], | | | | | | [place] [address] | | | | | | [phone] | | | | | | | [...] + | [facility] | [address] | [place], [place] | [phone] | | [facility] | | [address] | | | - LABORATORY | | | | + + + + + | [facility] | [address] | [place] | | | [facility] | | [address] | | | [...] (H)Comment: | 4.3 - 5.8 % | [facility] | | | A1c | DIABETIC PATIENT RANGES: | | [facility] | | | | 6.2-7.0% = [...] [address] | [place] | [phone] | | [facility] | | [address] | | | - LABORATORY | | | | + + + + + | [facility] | [address] | [place] | | | [facility] | | [address], [facility] | | | - [...] + | [facility] | [address] | [place], [place] | [phone] | | [facility] | | [address] | | | - LABORATORY | | | | + + + + + | [facility] | [address] | [place], [place] | | | [facility] | | [address] [place] [address] | | | - LABORATORY | | [...] [address] | [place] | [phone] | | [facility] | | [address] | | | - LABORATORY | | | | + + + + + | [facility] | [address] | [place] | | | [facility] | | [id number] | | | - LABORATORY | | | | + + + + + documented in this encounter Visit Diagnoses Not on filedocumented in this encounter"
--- OUTSIDE RECORDS SUMMARY | ~2019-09-12 | XMS | Encounter Summary ---
Demographics + + + | Address | [address] | | | [place] [address] | + + + | Home Phone [...] + | Author | [facility] | | | and Clarkeana | + + + | Organization | [facility] | [...] | | | | | [place] [address] | | + + + + + | Valentín Saleh | ECON | [address] | | | | | [place] [address] | | + + + + + | Roberto Carlos Lennon | LEVI | Unknown | | + + + + + Care Team Providers + +------+ + | Care Glass Ribbon Machine Operator Name | Role | Phone [...] | 02/15/ | Refill | [facility] | Stephenie Paul, | Medication Refill | | 2013 | | CARDIOLOGY [address] | MD [address] | | | | | [place], | [place], | | | | | [place] [address] | [place] [id number] | | | | | [phone] | [phone] | | | | | | | [...] | | | | | | [place] [address] | | | | | | [phone] | | | | | | | | +--------+---------+ + + + documented as of this encounter Visit Diagnoses Not on filedocumented in this encounter"
[~2019-09-12 13:56] MED LIST: ALLOPURINOL100 MG PO; ASPERCREME 1035.4 GM TOP; FOLIC ACID1 MG PO; LANTUS SOL100 UNIT/1 SUB-Q; LANTUS100 UNITS/ SUB-Q; LEXAPRO10 MG PO; LIPITOR40 MG PO; METOPROLOL SUCC50 MG PO; MULTIVITAMINS1 EAC7 PO; NOVOLOG FL100 UNIT/1 SUB-Q; NYSTATIN1 EAC2 MISC; NYSTOP60 GM TOP; TYLENOL325 MG PO; VITAMIN D325 MC2 PO; XARELTO10 MG PO; ZESTRIL10 MG PO
--- NOTE | 2019-09-12 22:34 | EKG ---
[facility] [address] [facility] [place] [address] Signed Atrial fibrillation with slow ventricular response Left axis deviation Right bundle branch block Inferior infarct , age undetermined T wave abnormality, consider lateral ischemia Abnormal ECG No previous ECGs available Confirmed by JANES CHRISTIAN MD ([id number]) on 09/12/2019 10:33:59 PM Electronically Signed By: JANES CHRISTIAN MD 09/12/19 2234 PATIENT NAME: ROSAURAADRIANNADORI Electrocardiogram DATE OF : [birth year] PHYSICIAN: JANES CHRISTIAN MD REPORT #: [id number] REPORT IS CONFIDENTIAL AND NOT TO BE RELEASED WITHOUT AUTHORIZATION
--- NOTE | 2019-09-12 22:37 | NUR ---
PATIENT RESTING IN BED, EYES CLOSED. PATIENT RESPONDS WITH GRUNTS AND MOANS WHEN TALKED TO BUT OTHERWISE APPEARS DROWSY. CALL LIGHT IN REACH, SIDE RAILS UP, BED ALARM ON. NO FURTHER NEEDS AT THIS TIME.
--- NOTE | 2019-09-12 23:17 | NUR ---
NOTIFIED VIA TELEPHONE OF pt'S CBG 143 AFTER ADMINISTRATION OF IV MEDICATION FOR HYPOGLYCEMIA.
--- NOTE | 2019-09-12 23:34 | NUR ---
PATIENT ARRIVED AT 1930, ON 10L/NONREBREATHER. PATIENT DID NOT NEED THIS AND WAS SWITCHED OVER TO 5.5 L/NC AND 5.5L/OXYMASK. PATIENT'S BLOOD SUGAR WAS 54, AND WENT TO GIVE DEXTROSE AND PATIENT'S IV FROM THE ER WAS OCCLUDED. DR. CHRISTIAN INFORMED. PATIENT A HARD STICK, AND AFTER THREE ATTEMPTS A 22G WAS PLACED IN THE RFA. OLD IV WAS DC'D INTACT. /2 AMP D50 GIVEN PER PROTOCOL, IV HOOKED UP TO RUN AT 75/MLS/HR AND IV ANTIBIOTICS GIVEN. AFTER DEXTROSE PATIET'S O2 SATS IMPROVED AND NC WAS TURNED OFF AT 2230 AND PATIENT REMAINS ON 5.5L/OXXY MASK WITH O2 SATS OF 93-94%. PATIENT SITTING UP IN HIGH FOWLERS POSITION AND PATIENT WAS CHANGED SHE WAS INCONTINENT STOOL AND URINE. PATIENT RESTIN QUIETLY NOW, EYES CLOSED, RESPIRATIONS SHALLOW, BUT EVEN. BED ALARM ON. PATIENT CAN BE SEEN FROM NURSES STATION. CALL LIGHT IN REACH ALTHOUGH PATIENT REALLY HAS NOT BEEN VERY RESPONSIVE AND HAS BEEN NON-VERBAL. POST DEXTROSE PATIENT'SS SUGUR CAME UP TO [address] CHRISTIAN WAS INFORMED AND NO OTHER ORDERS GIVEN.
--- NOTE | 2019-09-12 23:34 | NUR ---
PATIENT HAD INCONTINENT EPISODE, THIS MATTRESS STRIPPER ASSISTED RN ANTWON TO CHANGE PATIENT'S ATTENDS AND REPOSITION. PATIENT DRESSED IN CLEAN GOWN, CALL LIGHT IN REACH, BED ALARM ON, NO FURTHER NEEDS AT THIS TIME.
--- NOTE | 2019-09-13 00:49 | NUR ---
PATIENT RESTING IN LOW FOWLERS POSITION ON 5.5L/OXYMASK. EYES CLOSED, RESTING QUIETLY. RESPIRATIONS REGULAR AND SHALLOW. BED ALARM ON, AND CALL LIGHT IN REACH.
--- NOTE | 2019-09-13 02:04 | NUR ---
THIS EXTENSION EDGER ASSISTED RN ANTWON TO CHANGE PATIENT'S ATTENDS, PERICARE PERFORMED, PATIENT ROTATED ONTO HER RIGHT SIDE WITH PILLOWS. PATIENT OPENS HER EYES BRIEFLY WHEN SPOKEN TO BUT DOES NOT RESPOND VERBALLY. BED ALARM ON, VISIBLE FROM NURSES STATION, NO FURTHER NEEDS AT THIS TIME.
--- NOTE | 2019-09-13 03:14 | NUR ---
PATIENT RESTING ON HER RIGHT SIDE, FLOATED OFFF HER COCCYX, SATS 97% ON 5L/OXYMASK, EYES CLOSED, RESPIRATIONS SHALLOW AND EVEN. BED ALARM ON.
--- NOTE | 2019-09-13 04:08 | NUR ---
PATIENT CHECKED FOR INCONTINENCE, NO SIGNS OF VOIDING, RN ANTWON LEMUS SCANNED PATIENT. PATIENT REPOSITIONED ONTO LEFT SIDE WITH PILLOWS. BED ALARM ON, CALL LIGHT IN REACH, VISIBLE FROM NURSES STATION. NO FURTHER NEEDS AT THIS TIME.
--- NOTE | 2019-09-13 04:11 | NUR ---
BLADDER SCAN SHOWED THERE TO BE LESS THAN 200MLS IN THE BLADDER, WILL GIVE THE PATIENT A LITTLE MORE TIME TO HYDRATE.
--- NOTE | 2019-09-13 04:51 | NUR ---
PATIENT RESTING ON LEFT SIDE AT THIS TIME. MOIST COUGH AT TIMES. LUNGS STILL SOUND COARSE THROUGHOUT. PATIENT HAS HAD A COUPLE OF INCONTINENT STOOLS AND 1 INCONTINENCE OF URINE. RECENT BLADDER SCAN SHOWED LESS THAN 200MLS OF URINE IN THE PATIENT'S BLADDER. PATIENT HAD TO HAVE HER IV CHANGED ON ARRIVAL THE ONE FROM ER WAS CLOTTED OFF AND SHE NOW HAS A 22G IN HER RFA. HER LOW BLOOD SUGAR ON ARRIVAL WARRENTED 1/2 AMP OF D50 WHICH SEEMED TO MAKE HER A LITTLE MORE ALERT AND BROUGHT HER O2 SATURATIONS UP SO SHE ONLY NEEDED 5L/OXY MASK TO KEEP SATS AT 97%. PATIENT IS NOW ON 3L/OXY MASK AND STILL SATS AR 96-97%.
--- NOTE | 2019-09-13 06:29 | NUR ---
PATIENT HAD LARGE URINARY INCONTINENCE EPISODE, RN ANTWON ASSISTS TO CHANGE PATIENT'S BRIEF AND REPOSITION. PATIENT RESPONDS VERBALLY TO HER NAME AND OPENS HER EYES FOR CARE. ORAL CARE AND AM CARE PERFORMED. CALL LIGHT IN REACH, BED ALARM ON, NO FURTHER NEEDS AT THIS TIME.
--- NOTE | 2019-09-13 07:22 | NUR ---
bedside report from James rn, pt eyes closed, o2 3l. resp rate reg. call light in reach - pt wakes to gentle stimuli but just opens eyes briefly, does not answer questions.
--- NOTE | 2019-09-13 08:00 | NUR ---
DID PATIENT'S BLOOD SUGAR CHECK.
--- NOTE | 2019-09-13 08:42 | NUR ---
ABLE TO GET PT TO SIT UP AND OPEN EYES - NON VERBAL - TOOK PO MEDS WITH BITES OF APPLE SAUCE AND SWALLOWED OK. MAX ENCOURAGEMNT. PT HOB UP AFTER BITES- DECLINED MORE THAN ENOUGH TO GET PILLS DOWN. WOULD NOT TAKE MORE APPLESAUSE. EYES CLOSED AND RESP RATE REG. NO COUGH.
[2019-09-13] MEDS ORDERED: LANTUS SOL100 UNIT/1 SUB-Q (09:51)
[2019-09-13] MEDS ORDERED: ZYLOPRIM100 MG PO (09:52)
[2019-09-13] MEDS ORDERED: ZESTRIL10 MG PO (09:52)
[2019-09-13] MEDS ORDERED: NYSTOP60 GM TOP (09:53)
[2019-09-13] MEDS ORDERED: ASPER-FLEX85 GM TOP (09:54)
[2019-09-13] MEDS ORDERED: MULTI VITAMIN1 EACH PO (09:54)
--- NOTE | 2019-09-13 09:55 | NUR ---
Medications reconciled using med list from [facility] per phone interview with facility
--- NOTE | 2019-09-13 12:01 | NUR ---
repositioned pt, she is still non verbal and eyes closed.
--- NOTE | 2019-09-13 12:48 | NUR ---
PT AWAKE - MUMBLES SOME WORDS - TOLLERATED A FEW BITES OF JELLO AT LUNCH.
--- NOTE | 2019-09-13 14:10 | NUR ---
pt repositioned to r side, moans, looks uncomfortable at rest. po tylenol in a sm spoonful of apple sauce given - pt did not tollerate it, myriam, discharge planner observed with this rn and then dr - pt was suctioned with yankaur - and no gag 40 ml of mucus and applesause with crushed meds retrived in suction. pt o2 94% at rest after and resting on r side hob up. aware and probable npo order anticipated.
--- NOTE | 2019-09-13 14:30 | NUR ---
CM assessment completed per chart and information from Dr. Mahoney. Pt is unable to answer any questions at my visit. Son was here and update was given to him by Dr. Mahoney.
--- NOTE | 2019-09-13 15:46 | NUR ---
THIS RN PRESENT DURING BED BATH AND REPOSITIONING. ASKED PSYCHOLOGY INTERN SHAY TO OBSERVE BEDSORE THAT WAS PRESENT ON ADMISSION - DRSG REMOVED AND SM AREA OF OPEN PRESSURE SORE STAGE 1 NOTED. ANOTHER AREA TO THE LEFT LOWER COXYX WAS NOTED TO BE DARK RED, BLANCHABLE BUT WITH SOME ABRASION NOTED. BOTH AREAS WERE CLEANED, AND NEW PADDED DRESSGING PLACED AND DATED. CONTINUE TO REPOSITION PT OFF OF BONY PROMINENCE AND SIDE TO SIDE AND FLOAT.
--- NOTE | 2019-09-13 16:06 | NUR ---
PT ON LEFT SIDE, RESP RATE REGULAR - EYES CLOSED - CAN SEE PT FROM THE RN STATION. APPEARS RESTING.
--- NOTE | 2019-09-13 17:57 | NUR ---
TALKED WITH REWINDER ABOUT NPO STATUS AND PO MEDS. DR. BRAND GAVE VERBAL ORDER EARLIER OK FOR NPO - CHARGE ENTERING ORDERS. WILL CALL DR. HUGGINS WHO ASSUMES CARE TO ADDRESS PO MEDS AND SUGAR CHECKS.
--- NOTE | 2019-09-13 17:59 | NUR ---
ORDERS ACKNOLEDGED BY THIS RN FROM DR. HUGGINS - NPO AND DC SUGAR CHECKS.
--- NOTE | 2019-09-13 19:10 | NUR ---
SHIFT REPORT RECEIVED FROM DAR OLIVAS. PT REPOSITIONED. IV WNL. HOB ELEVATED. CPOX 96%, 3L OXYMASK. NO NEEDS AT THIS TIME. CALL LIGHT IN REACH.
--- NOTE | 2019-09-13 19:20 | NUR ---
OTHER CLOTH MERCERIZING SUPERVISOR AND I GAVE HER A BED BATH AND ALSO WASHED HER HAIR.
--- NOTE | 2019-09-13 20:30 | NUR ---
VITALS AND BLOOD SUGAR DONE AND CHARTED. BEDSIDE TABLE AND CALL LIGHT IN REACH.
--- NOTE | 2019-09-13 20:38 | NUR ---
ASSESSMENT COMPLETED. SCHEDULED MEDS PROVIDED. IV FLUSHED WELL, WNL, CDI. LUNGS CLEAR IN UPPER LOBES, DIMINISHED IN LOWER LOBES. WOUNDS ON LOWER BACK COVERED. NO OTHER NEEDS AT THIS TIME. CALL LIGHT IN REACH.
--- NOTE | 2019-09-13 21:10 | NUR ---
PT STATES SHE HAS BACK PAIN. PRN PAIN MED PROVIDED. BRIEFS CHANGED. NO OTHER NEEDCS AT THIS TIME. CALL LIGHT IN REACH.
--- NOTE | 2019-09-13 21:12 | NUR ---
REPOSITIONED PT IN HER BED WITH THE HELP OF DEISY COBOS.
--- NOTE | 2019-09-13 23:37 | NUR ---
PT RESTING IN BED, EYES CLOSED. RR EVEN, UNLABORED @ 18. OXYMASK @ 2L, SPO2 94%. IV FLUIDS INFUSING PER ORDER. CALL LIGHT IN REACH, RAILS UP, DOOR OPEN.
--- NOTE | 2019-09-14 00:12 | NUR ---
WITH THE HELP OF DEISY COBOS WE REPOSITIONED PT IN BED AND CHEKED HER ATTENDS. SHE WAS DRY.
--- NOTE | 2019-09-14 00:46 | NUR ---
PT RESTING IN BED, EYES CLOSED. RR EVEN, UNLABORED. IV FLUIDS INFUSING PER ORDER. RAILS UP, DOOR OPEN, CALL LIGHT IN REACH.
--- NOTE | 2019-09-14 02:42 | NUR ---
CBG 171, PRN HUMALOG 1 UNIT PROVIDED. SCHEDULED MED PROVIDED. ASSESSMENT COMPLETED. LUNGS COURSE IN ALL LOBES. R FA IV NOT FLUSHING WELL. ATTEMPTED IV IN R FA, UNSUCCESSFUL. R FA IV REPOSITIONED AND NEW WINDOW PLACED, FLUSHED WELL. PT REPOSITIONED. PT MOUTH SUCTIONED SHE HAD SPUTUM IN HER MOUTH. OXYMASK @ 2L, SPO2 94%. NO OTHER NEEDS AT THIS TIME. CALL LIGHT IN REACH, RAILS UP, DOOR OPEN.
--- NOTE | 2019-09-14 03:14 | NUR ---
IV ABX COMPLETE, SWITCHED PT BACK OVER TO IV FLUIDS. PT IS RESTING WITH EYES OPEN, RR IS EVEN AND NONLABORED. CALL LIGHT IS CLOSE AND PT IS VISABLE FROM NURSES STATION.
--- NOTE | 2019-09-14 04:58 | NUR ---
PT SLEPT OFF AND ON LAST NIGHT. PRN PAIN MED PROVIDED ONCE. PT IS NOT ORIENTED TO PERSON, PLACE, TIME OR EVENTS BUT CAN STATE PAIN AND NEED FOR REPOSITIONING. R FA IV REPOSITIONED AND WINDOW PLACED, FLUSHED WELL AFTER DRESSING CHANGE. LUNGS WERE DIMINISHED AND COURSE. PT HAS HAD SMALL AMOUNTS OF THICK, YELLOW SPUTUM. SHE HAS BEEN SUCTIONED X2 FOR SPUTUM IN UPPER THROAT AND MOUTH. CPOX TRENDING 92-95% ON 2L OXYMASK, PT CHANGED TO NC DUE TO BRISGE OF NOSE REDNESS. PT TOLERATED IV FLUIDS, NPO AND CBG WELL. CBG 171, PRN INSULIN PROVIDED.
--- NOTE | 2019-09-14 05:30 | NUR ---
PT REPOSITIONED. MOUTH SUCTIONED OF SPUTUM. PT ABLE TO ANSWER NAME AND . IV FLUIDS INFUSING PER ORDER. NC @ 2L, CPOX 94%. REDNESS ON NOSE AND LEFT CHEEK NOTED. IV WNL. NO OTHER NEEDS AT THIS TIME. CALL LIGHT IN REACH.
--- NOTE | 2019-09-14 07:44 | NUR ---
DID PATIENT'S BLOOD SUGAR CHECK. I AM GOING TO WASH HER FACE AND DO ORAL CARE.
--- NOTE | 2019-09-14 09:14 | NUR ---
PT RESTING WITH EYES CLOSED, APPEARS RELAXED, LUNGS REMAIN COARSE, ORAL WAS DONE, O2 PER NC, REMAINS NPO FOR SAFETY, TURN Q2, DRSG INTACT TO COCCYX, PILLOWS TO SUPPORT PRESSURE AREAS. DOES NOT ATTEMPT TO FOLLOW INTRUCTIONS.
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
--- NOTE | 2019-09-14 11:08 | NUR ---
CHEST X-RAY WAS DONE, NO IMPROVEMENT.
--- NOTE | 2019-09-14 12:30 | NUR ---
TURNED AND REPOSITIONED, PILLOWS TO SUPPORT PRESSURE AREAS, ATTENDS IS DRY, IVF PATENT, SON AT BEDSIDE VISITING, NC @ 2L. ORAL CARE GIVEN, OCCASIONAL LOOSE PROD COUGH OF RUIZ/GREENISH MUCOUS. LUNGS REMAIN COARSE. RESP 20.
--- NOTE | 2019-09-14 14:30 | NUR ---
Spoke with Bridget from [facility]. Updated, son was concerned, pt may not be able to return after pneumonia. Bridget states this is not and issue. She is a class [employer] home and could take ventilators if needed. Informed I will let son and know.
--- NOTE | 2019-09-14 16:30 | NUR ---
EVAL BY ST AND DIET ADVANCED, GIVEN PUDDING WITH DR HUGGINS IN ROOM, PT WAS SLOW TO SWALLOW AND DID HAVE COUGH AFTERWARDS, DR HUGGINS SAID TO GO AHEAD AND GIVE PER PT REQUEST. PT DID STATE SHE WAS HUNGRY,
--- NOTE | 2019-09-14 19:12 | NUR ---
SHIFT REPORT RECEIVED FROM ECTOR OLIVAS. NEW BAG OF IV FLUIDS PROVIDED. NO OTHER NEEDS. CALL LIGHT IN REACH.
--- NOTE | 2019-09-14 19:23 | NUR ---
RAGHAVENDRA HELPED ME CHANGE HER AND REPOSITION HER.
--- NOTE | 2019-09-14 20:02 | NUR ---
VS and BS check complete. nothing further at this time.
--- NOTE | 2019-09-14 20:49 | NUR ---
ASSESSMENT COMPLETED. CBG 152, 1 UNIT INSULIN PROVIDED. SCHEDULED MEDS PROVIDED. SCATTERED BRUISING NOTED. ABD TENDERNESS NOTED, BOWEL TONES ACTIVE. LUNGS COURSE IN ALL LOBES. THICKENED WATER PROVIDED. PT ORIENTED TO PERSON, NOT PLACE, TIME OR EVENTS. CMS INTACT. IV WNL, FLUSHED WELL, CDI. PT REPOSITIONED. NC @ 2L, SPO2 100 %. NC TITRATED TO 1L. NO OTHER NEEDS AT THIS TIME. CALL LIGHT IN REACH.
--- NOTE | 2019-09-14 22:12 | NUR ---
PT REPOSITIONED, BRIEFS CHANGED. THICKENED WATER PROVIDED. IV FLUIDS INFUSING PER ORDER. NC @ 1L, SPO2 99%. NO OTHER NEEDS AT THIS TIME. CALL LIGHT IN REACH.
--- NOTE | 2019-09-15 00:23 | NUR ---
PT REPOSITIONED, GOWN CHANGED. THICKENED WATER PROVIDED. IV FLUIDS INFUSING PER ORDER. NO OTHER NEEDS AT THIS TIME. CALL LIGHT IN REACH
--- NOTE | 2019-09-15 02:02 | NUR ---
SCHEDULED MEDS PROVIDED. CBG 152, 1 UNIT INSULIN PROVIDED. VS COMPLETED. THICKENED WATER PROVIDED. PT REPOSITIONED. NO OTHER NEEDS AT THIS TIME. CALL LIGHT IN REACH, RAILS UP, DOOR OPEN.
--- NOTE | 2019-09-15 03:48 | NUR ---
PT REPOSITIONED, BRIEFS CHANGED. ASSESSMENT COMPLETED. LUNGS CLEAR IN UPPER LOBES AND DIMINISHED COURSE IN LOWER LOBES. BOWEL TONES ACTIVE. IV WNL, IV FLUIDS INFUSING PER ORDER. SCATTERED BRUISING NOTED. ABD TENDER. NC @ 1L, SPO2 98%. RESPIRATIONS SHALLOW AT 20. NO OTHER NEEDS AT THIS TIME. CALL LIGHT IN REACH.
--- NOTE | 2019-09-15 05:16 | NUR ---
PT SLEPT WELL THIS SHIFT. SHE WAS ORIENTED TO PERSON AND CAN TELL HER , PAIN LEVEL AND PREFFERED POSITION. SHE IS NOT ORIENTED TO PLACE, TIME OR EVENTS. BOWEL TONES ACTIVE WITH 2 SMALL BMs THIS SHIFT. SCATTERD BRUISING UNCHANGED. PT TOLERATED IV FLUIDS WELL, IV WNL. PT TITRATED TO 1L NC, SPO2 99%. LUNG SOUNDS DIMINISHED IN ALL LOBES, CLEAR IN UPPER LOBES AND COURSE IN LOWER LOBES. VSS. UOS .
--- NOTE | 2019-09-15 05:30 | NUR ---
PT REPOSITIONED, THICKENED WATER PROVIDED. IV APPEARS TO BE LEAKING AND INFILTRATED. SWELLING NOTED TO LEFT HAND. IV DCd INTACT. 22G IN LEFT FOREARM, 1 ATTEMPT BY LUPE OLIVAS. RIGHT HAND ELEVATED AND WARM BLANKET PLACED ON HAND. IV FLUIDS INFUSING PER ORDER. CALL LIGHT IN REACH, RAILS UP, DOOR OPEN. NC @ 1L, SPO2 99%.
--- NOTE | 2019-09-15 08:14 | NUR ---
PATIENT SLEEPING. WHITE BOARD UPDATED. CALL LIGHT WITHIN REACH. NO OTHER NEEDS AT THIS TIME
--- NOTE | 2019-09-15 08:52 | NUR ---
PATIENT SITTING UP IN CHAIR. PATIENT FED. VITAL SIGNS AND I&O DONE. PATIENT'S FACE AND HANDS WASHED. CALL LIGHT WITHIN REACH. NO OTHER NEEDS AT THIS TIME
--- NOTE | 2019-09-15 13:33 | NUR ---
PATIENT SITTING UP IN CHAIR. PATIENT TRANSFERS TO BED. TWO PERSON ASSISTING. PATIENT IS INCONTINENT OF URINE. PERICARE PERFORMED. TWO PERSON ASSISTING. VITAL SIGNS AND I&O DONE. CALL LIGHT WITHIN REACH. NO OTHER NEEDS AT THIS TIME
--- NOTE | 2019-09-15 14:41 | NUR ---
PT IS ALERT, READY ANSWERES QUESTIONS, SAUK-SUIATTLE, MAINTAINING OXIMETER ON ROOM AIR ALL DAY. AFEBRILE, DOING BETTER WITH ORAL INTAKE.
--- NOTE | 2019-09-15 16:34 | NUR ---
DR HUGGINS IN TO SEE PT, IVF TO SL, PT REMAINS ALERT, CONT. TO SWALLOW THICKENED LIQUIDS WELL, REMAINS ON RA. POSSIBLE DC HM TOMORROW.
--- NOTE | 2019-09-15 17:53 | NUR ---
PATIENT RESTING IN BED. RN IN ROOM. PATIENT'S ATTENDS CHANGED. PERICARE PERFORMED. PATIENT REPOSIOTED ON HER RIGHT SIDE. TWO PERSON ASSISTING. PATIENT FED. VITAL SIGNS AND I&O DONE. CALL LIGHT WITHIN REACH. NO OTHER NEEDS AT THIS TIME
--- NOTE | 2019-09-15 19:19 | NUR ---
SHIFT REPORT RECEIVED FROM ECTOR OLIVAS. PT RESTING IN BED, WAKES TO VOICE. NO NEEDS AT THIS TIME. CALL LIGHT IN REACH, DOOR OPEN, RAILS UP.
--- NOTE | 2019-09-15 20:30 | NUR ---
ASSESSMENRT, VS AND I&O COMPLETE. CBG 230, 3 UNITS INSULIN PROVIDED. LUNGS CLEAR IN UPPER LOBES AND DIMINSHED IN LOWER LOBES. SCHEDULED MEDS PROVIDED. IV WNL, CDI, FLUSHED WELL. BOWEL TONES ACTIVE. PT ORIENTED TO PERSON AND PLACE, NOT TIME OR EVENTS. PT REPOSITIONED. SCATTERED BRUISING NOTED. LEFT CHEEK REDNESS NOTED. NO OTHER NEEDS. CALL LIGHT IN REACH, RAILS UP, DOOR OPEN.
--- NOTE | 2019-09-16 00:13 | NUR ---
BRIEFS CHANGED, PT REPOSITIONED. THICKENED WATER PROVIDED. NO OTHER NEEDS AT THIS TIME. CALL LIGHT IN REACH.
--- NOTE | 2019-09-16 01:52 | NUR ---
SCHEDULED MED PROVIDED. IV WNL, CDI, FLUSHED WELL. PT REPOSITIONED. THICKENED WATER PROVIDED. NO OTHER NEEDS. CALL LIGHT IN REACH.
--- NOTE | 2019-09-16 03:34 | NUR ---
ASSESSMENT COMPLETED. BRIEFS CHANGED. THICKENED WATER PROVIDED. PT REPOSITIONED. NO OTHER NEEDS AT THIS TIME. CALL LIGHT IN REACH.
--- NOTE | 2019-09-16 05:21 | NUR ---
VS AND I&O COMPLETED. BRIEF CHANGED. PT REPOSITIONED. THICKENED WATER PROVIDED. NO OTHER NEEDS AT THIS TIME. CALL LIGHT IN REACH.
--- NOTE | 2019-09-16 07:32 | NUR ---
REPORT RECIEVED FROM DEISY COBOS. PT APPEARS TO BE RESTING COMFORTABLY.
--- NOTE | 2019-09-16 08:04 | NUR ---
PT ASSISTED TO CHAIR WITH MARIZA INGRAM AND ABHISHEK. PILLS GIVEN IN APPLESAUCE, PT TOLERATED WELL. MARIZA INGRAM ASSISTING PT WITH EATING HER BREAKFAST.
--- NOTE | 2019-09-16 08:08 | NUR ---
PATIENT RESTING IN BED. PATIENT INCONTINENT OF URINE AND BM. PERICARE PERFORMED. ATTENDS CHANGED. PATIENT TRANSFERS TO CHAIR. TWO PERSON ASSISTING. PATIENT WAS FED. WARM BLANKET PROVIDED. HANDS AND FACE WERE WASHED. CALL LIGHT WITHIN REACH. NO OTHER NEEDS AT THIS TIME
--- NOTE | 2019-09-16 09:37 | NUR ---
PT HAS SON IN ROOM. ASSISTED WITH A COUPLE DRINKS OF THICKENED WATER. TOLERATED WELL.
--- NOTE | 2019-09-16 10:07 | NUR ---
DR HUGGINS IN ROOM TO ASSESS PT. SON IN ROOM. PT STATES SHE IS READY TO GO HOME.
[2019-09-16] MEDS ORDERED: METOPROLOL SUCC50 MG PO (10:13)
[2019-09-16] MEDS ORDERED: METFORMIN HCL500 MG PO (10:14)
[2019-09-16] MEDS ORDERED: AUGMENTIN250 MG/5 M PO (10:15)
== END 2019-09-16 11:25 | disposition home or self-care (01) | DRG 177 ==
LOC: ED 13:56 → MS 19:02
PROVIDERS: ADMIT Internal Medicine
DX: J69.0 Pneumonitis due to inhalation of food and vomit (principal); J96.01 Acute respiratory failure with hypoxia; I48.20 Chronic atrial fibrillation, unspecified; Z20.828 Contact with and (suspected) exposure to other viral communicable diseases; F03.90 Unspecified dementia, unspecified severity, without behavioral disturbance, psychotic disturbance, mood disturbance, and anxiety; E11.9 Type 2 diabetes mellitus without complications; R13.12 Dysphagia, oropharyngeal phase; Z66 Do not resuscitate; Z79.01 Long term (current) use of anticoagulants; Z79.4 Long term (current) use of insulin; Z79.899 Other long term (current) drug therapy; Z88.5 Allergy status to narcotic agent; Z88.7 Allergy status to serum and vaccine; Z88.8 Allergy status to other drugs, medicaments and biological substances
CPT/HCPCS: 31720; 36415; 71045; 80048; 80053; 83735; 83880; 84484; 85025; 92610; 93005; 93010; 94640; 94762; 99285-25; C9113; J0295; J1815; J3480; U0002

== ENCOUNTER 2020-03-30 10:17 | Emergency (ER) | payer MEDICARE ==
[~2020-03-30] VITALS: Ht 167.6 cm; Wt 51.7 kg
[~2020-03-30 10:17] MED LIST changes: +ASPER-FLEX85 GM TOP; +AUGMENTIN250 MG/5 M PO; +METFORMIN HCL500 MG PO; +MULTI VITAMIN1 EACH PO; +ZYLOPRIM100 MG PO
[2020-03-30] MEDS ORDERED: ONDANSETRON ODT4 MG PO (12:21)
== END 2020-03-30 12:30 | disposition home or self-care (01) ==
LOC: ED 10:17
DX: K52.9 Noninfective gastroenteritis and colitis, unspecified (principal); F03.90 Unspecified dementia, unspecified severity, without behavioral disturbance, psychotic disturbance, mood disturbance, and anxiety; E11.9 Type 2 diabetes mellitus without complications; Z79.4 Long term (current) use of insulin; Z79.899 Other long term (current) drug therapy; Z79.891 Long term (current) use of opiate analgesic; Z88.8 Allergy status to other drugs, medicaments and biological substances; Z88.5 Allergy status to narcotic agent; Z88.7 Allergy status to serum and vaccine
CPT/HCPCS: 80053; 81001; 83690; 85025; 96374; 99284-25; J2405; J7040